=== PATIENT | female | born 1945 | race Caucasian/White ===

== ENCOUNTER 2017-06-19 08:02 | Inpatient (IN) | payer MEDICARE, OTHER ==
[~2017-06-19] VITALS: Ht 157.5 cm; Wt 63.6 kg
[~2017-06-19 08:02] MED LIST: ALBUTEROL2.5 MG/3 M INH; ALLEGRA ALLERG180 MG PO; ASPIRIN EC81 MG PO; BENZONATATE100 MG PO; BREO ELLIPTA 21 EACH INH; CIPROFLOXACIN500 MG PO; CLONIDINE HCL0.1 MG PO; CLOPIDOGREL75 MG PO; DIASTAT ACUDIAL1 EA PO; DIAZEPAM2 MG PO; DIAZEPAM5 MG PO; DILAUDID4 MG PO; DILAUDID8 MG PO; DIPHENOXYLATE-1 EACH PO; EFFEXOR XR37.5 MG PO; FLAGYL500 MG PO; FOLIC ACID1 MG PO; FUROSEMIDE20 MG PO; GILOTRIF30 MG PO; GILOTRIF40 MG PO; HYDROCODONE-AC473 ML PO; HYDROCODONE-ACE15 M2 PO; HYDROMORPHONE HC4 MG PO; IPRAT-ALBUT 0.5-3 ML INH; IRON18 MG PO; LAMISIL250 MG PO; LASIX20 MG PO; LEVOTHYROXINE100 MCG PO; LEVOTHYROXINE75 MCG PO; LISINOPRIL10 MG PO; LORAZEPAM1 MG PO; MAGNESIUM400 MG PO; METHOTREXATE2.5 MG PO; MORPHINE SULFAT10 M1 PO; MORPHINE SULFAT15 M1 PO; MORPHINE SULFAT30 M1 PO; MS CONTIN30 MG PO; MUCINEX600 MG PO; NORCO 5-325 TA1 EACH PO; NORCO 7.5-3251 EACH PO; OMEPRAZOLE20 MG PO; OMEPRAZOLE40 MG PO; OXYCODONE HCL10 MG; PERCOCET 5-3251 EACH PO; PREDNISONE20 MG PO; PREDNISONE5 MG PO; PROTONIX40 MG PO; RANITIDINE HCL150 MG PO; SIMVASTATIN40 MG PO; SPIRIVA18 MCG INH; SUCRALFATE1 GM PO; SYMBICORT 16010.2 GM INH; TIZANIDINE HCL4 MG PO; TREXALL5 MG PO; TUDORZA PRESS400 MCG INH; VENLAFAXINE H37.5 MG; VENLAFAXINE H37.5 MG PO; VITAMIN D31000 UNIT PO; VITRON-C TABLE1 EACH PO
--- OUTSIDE RECORDS SUMMARY | 2017-06-19 08:12 | XMS | Clinical Summary ---
Demographics + + + | Address | [address] | | | [place] [address] | + + + | Home Phone | | + + + | Preferred Language | Unknown | + + + | Marital Status | Single | + + + | Restorationism Affiliation | Unknown | + + + | Race | White | + + + | Ethnic Group | Not or | + + + Author + + + | Author | [facility] | + + + | Organization | [facility] | + + + | Address | Unknown | + + + | Phone | Unavailable | + + + Support +------+ +---------+ + | Name | Relationship | Address | Phone | +------+ +---------+ + ECON | Unknown | | +------+ +---------+ + Care Team Providers + +------+-------+ | Care Acute Care Assistant Name | Role | Phone | + +------+-------+ | Ayana Taylor MD | PP | tel | + +------+-------+ Source Comments KARISHMA is fully live on both [facility] and [facility] Allergies Not on File Current Medications Not on file Active Problems Not on file Social History + +-------+ +--------+------+ | Tobacco Use | Types | Packs/Day | Years | Date | | | | | Used | | + +-------+ +--------+------+ | Never Assessed | | | | | + +-------+ +--------+------+ + + + | Sex Assigned at | Date Recorded | | | | + + + | Not on file | | + + + Plan of Treatment + + + + + | Health Maintenance | Due Date | Last Done | Comments | + + + + + | INFLUENZA VACCINE | | | | | (FLU SHOT) | 7 | | | + + + + + Results Not on filefrom Last 3 Months"
--- OUTSIDE RECORDS SUMMARY | 2017-06-19 08:13 | XMS | Clinical Summary ---
Demographics + + + | Address | [address] | | | [place] [address] | + + + | Home Phone | | + + + | Preferred Language | Unknown | + + + | Marital Status | Single | + + + | Sikhism Affiliation | Unknown | + + + [...] Care Team Providers + +------+-------+ | Care Layout Former Name | Role | Phone | + +------+-------+ | Ayana Taylor MD | PP | tel | + +------+-------+ Source Comments KARISHMA is fully live on both [facility] and [facility]Patient.[facility] Allergies Not on File Current Medications Not [...]
[2017-06-19] MEDS ORDERED: POTASSIUM CHLO20 ME1 PO (08:30)
--- OUTSIDE RECORDS SUMMARY | 2017-06-19 10:56 | XMS | Clinical Summary ---
Demographics + + + | Address | [address] | | | [place] [address] | + + + | Home Phone | | + + + | Preferred Language | Unknown | + + + | Marital Status | Single | + + + | Buddhist Affiliation | Unknown | + + + [...] Care Team Providers + +------+-------+ | Care Real Estate Appraiser Supervisor Name | Role | Phone | + +------+-------+ | Ayana Taylor MD | PP | tel | + +------+-------+ Source Comments KARISHMA is fully live on both [facility] and [facility] Allergies Not on File Current Medications [...]
[2017-06-19] MEDS ORDERED: LEVOTHYROXINE125 MCG PO (12:24)
[2017-06-19] MEDS ORDERED: METHOTREXATE2.5 MG PO (12:29)
[2017-06-19] MEDS ORDERED: VENLAFAXINE HCL75 M2 PO (12:31)
[2017-06-19] MEDS ORDERED: SPIRIVA RESPIMAT4 GM INH (12:36)
[2017-06-19] MEDS ORDERED: TRAZODONE HCL100 MG PO (12:37)
[2017-06-19] MEDS ORDERED: PREMARIN30 GM VAGINAL (12:39)
[2017-06-19] MEDS ORDERED: RANITIDINE HCL300 MG PO (12:48)
--- NOTE | 2017-06-19 13:20 | NUR ---
PATIENT TO FLOOR FROM ED VIA STRETCHER. PATIENT TRANSFER SELF TO HOSPITAL BED WITH 1 PERS ASSIST. SKIN FRAGILE, BRUISES AND BROWN SPOTS DISCOLORATION NOTED ON THE UPPER AND LOWER EXTREMITIES. POSITIVE BOWEL TONES. RHONCHI AUSCULTATED THROUGHOUT THE LUNGS FIELD. PATIENT IS VERY TACHYPNEIC WITH ACTIVITY. ON 2L O2 VIA NC. IV SITE PATENT AND FLUID STARTED ORDERED. PATIENT DENIED NAUSEA. PATIENT REPORT GENRALIZED PAIN. PATIENT MEDICATED. CALL LIGHT IN REACH.
--- NOTE | 2017-06-19 13:38 | NUR ---
MED REC COMPLETE
--- NOTE | 2017-06-19 14:09 | NUR ---
RT WAS IN ROOM TO ADMINISTER NEB TREATMENT. PATIENT WAS ASSISTED TO BEDSIDE COMMODE WITH 1 PERSON ASSIST. PATIENT WAS VERY SHORT OF BREATH , BUT SATURATED @ 94% ON 2L. PATIENT HAD WET PRODUCTIVE COUGH WITH YELLOW SPUTUM. PATIENT ASSISTED BACK TO BED WITH NO DIFFICULTY. RR DOWN TO 24. RESTING IN BED AT THIS TIME. WILL CONTINUE TO MONITOR.
--- NOTE | 2017-06-19 15:56 | NUR ---
PATIENT RESTING IN BED APPEARS TO BE SLEEPING AT THIS TIME.
--- NOTE | 2017-06-19 17:10 | NUR ---
PATIENT WAS MEDICATED FOR 9/10 BACK/HEAD PAIN. PATIENT THEN ASSISTED TO CHAIR. WARM BLANKET PROVIDED. RESTING IN CHAIR AT THIS TIME.
--- NOTE | 2017-06-19 18:38 | NUR ---
PATIENT ADMIT FROM ED. PATIENT HAS HX OF LUNG CANCER. NEGATIVE FOR FLU. PATIENT IS ON 2L OF O2 VIA NC. RHONCHI AUSCULTATED THROUHGOUT THE LUNGS FIELD. LOOSE PRODUCTIVE COUGH. PATIENT HAD A TEMP OF 101.4 AND PATIENT WAS MEDICATED. BEDSIDE COMMODE. SOB WITH EXERTION. JORGE TX.
--- NOTE | 2017-06-19 19:15 | NUR ---
SHIFT REPORT RECIEVED. PATIENT RESTING IN BED. AAOX3. FRIEND/FAMILY AT BEDSIDE. PATIENT REPORTS PAIN. RN AGREED TO CHECK THE ORDERS AND PROVIDE PAIN MEDS SOON POSSIBLE. PATIENT AGREED. CALL LIGHT IN REACH.
--- NOTE | 2017-06-19 20:00 | NUR ---
WARD NURSE AGREED TO MEDICATE PATIENT.
--- NOTE | 2017-06-19 20:04 | NUR ---
WHITEBOARD UPDATED, PATIENT DOES NOT NEED ANYTHING AT THIS TIME.
--- NOTE | 2017-06-19 20:19 | NUR ---
MEDICATED WITH 8MG PO dILAUDID C/O 02/08 BACK/HEAD PAIN, PT ALERT, o2 3.5l NC, TOLERATING FLUIDS WELL. CONTINUES TON DROPLET ISOLATION
--- NOTE | 2017-06-19 22:00 | NUR ---
SHAHNAZ RN ETIENNE ABLE TO PROVIDE MEDS PER ORDER. RT BUSY AT THIS TIME, SCHEDULED NEB TREATMENT PROVIDED BY THIS RN. PATIENT IS AAOX3. LOOSE HACKING COUGH, RHONIC THROUGHOUT LUNGS. 3.5L NC, PULSE OX 97%. PATIENT REPORTS NAUSEA. ABD IS SOFT AND NONTENDER. LAST BM TODAY BEFORE COMING INTO ER. POOR APPETITE TONIGHT. PATIENT'S SKIN IS FLUSHED WITH DARK RUTLEDGE ON ALL EXTREMITIES, PATIENT REPORTS THIS NORMAL FOR HER. PATIENT FEELS WARM TO TOUCH. ORAL TEMP IS 99.5 F.
--- NOTE | 2017-06-19 23:00 | NUR ---
JOHAN CARBAJAL PROVIDED TO PATIENT. SHE HAS FAMILY IN THE ROOM VISITING. DENIES NEEDS AT THIS TIME. CALL LIGHT IN REACH.
--- NOTE | 2017-06-19 23:14 | NUR ---
HOSPITALIST CONTACTED TO REPORT PATIENT'S TEMP OF 99.5 F. NO NEW ORDERS. PATIENT REPORTS NAUSEA. NEW ORDERS RECIEVED FOR PRN ZOFRAN, VERIFIED USING READ BACK METHOD.
--- NOTE | 2017-06-20 00:20 | NUR ---
PATIENT RESTING IN BED. EYES CLOSED. AROUSED TO VOICE. DENIED TOILETING NEEDS AT THIS TIME. CALL LIGHT IN REACH.
--- NOTE | 2017-06-20 02:10 | NUR ---
PATIENT RESTING IN BED. EYES CLOSED. RR 20. PATIENT AROUSED TO VOICE. DENIED PAIN AT THIS TIME. ENCOURAGED THE PATIENT TO GET UP TO BSC. PATIENT ABLE TO TRANSFER WITH 1PA TO BSC. PATIENT COUGHING UP THICK CHIN PHLEM. PATIENT REQUESTED A NEB TREATMENT. RT CONTACTED. PATIENT REPORTS FEELING COLD, WARM BLANKET PROVIDED. PATIENT IN BED. PERSONAL ITEMS IN REACH. CALL LIGHT IN HAND.
--- NOTE | 2017-06-20 02:10 | NUR ---
RN IN ROOM
--- NOTE | 2017-06-20 03:00 | NUR ---
NEW IV STARTED BY YG. DAYANA TOLERATED WELL. MD CONTACTED ABOUT LOW URINE OUTPUT, ORDERS FOR FLUID BOLUS RECIEVED. VERIFIED USING READ BACK METHOD. BOLUS STARTED IN NEW IV SITE. PATIENT VERIBILIZED UNDERSTANDING OF THIS TREATMENT AND AGREED TO CALL WHEN SHE FEELS THE NEED TO URINATE. PATIENT REPORTS 9/10 PAIN IN BACK AND NECK. PRN PAIN MEDS PROVIDED. PATIENT TEMP OF 99.8 F ORALLY. PRN TYLENOL PROVIDED. PATIENT HAS THE CHILLS AND IS COLD TO THE TOUCH. WILL CONTINUE TO MONITOR.
--- NOTE | 2017-06-20 03:40 | NUR ---
RN IN ROOM
--- NOTE | 2017-06-20 05:00 | NUR ---
OLGA CORREA REPORTED TEMP OF 99.4 ORALLY. PATIENT RESTING IN BED. EYES CLOSED. RR17. PATIENT DENIES NEED TO USE THE BATHROOM. IV BOLUS INFUSING, SITE WNL.
--- NOTE | 2017-06-20 06:04 | NUR ---
PATIENT RESTED WELL THROUGHOUT THE NIGHT. PRN PAIN MEDS X3. NAUSEA X1, NO EMESIS. NEW IV SITE IN RAC. URINE OUTPUT LOW, IV BLOUS ORDERED. PATIENT OIRENTED X4. FREQUENTLY DROSWEY. SBA TO THE BSC. 3L NC, SCHEDULED NEBS. PRODUCTIVE COUGH W/THICK CHIN SPUTUM. PATIENT CALLS APPORPRIATLY.
--- NOTE | 2017-06-20 06:48 | NUR ---
PATIENT REPORTS PAIN IS WELL CONTROLLED RIGHT NOW. RATED 7/10. PATIENT STATES TO CONSISTENTLY BE AT A 5/10 WITH HER CHRONIC PAIN IN NECK AND BACK. PATIENT TIRATED TO 3L NC. O2 SAT 97%. MORNING MEDS GIVEN PER ORDER. PATINET RESTING IN BED. STATES SHE WAS RESENTLY UP TO THE BATHROOM AND DENIES THE NEED AT THIS TIME. IV SITE WNL, BOLUS HAS FINISHED. ORDERED IV FLUIDS RESUMED. PATIENT DENIES FURTHER NEEDS. CALL LIGHT IN REACH.
--- NOTE | 2017-06-20 07:15 | NUR ---
REPORT RECEIVED FROM ZEV ROMANO. PT AWAKE AND RECIEVING NEB TREATMENT. PT DENIES CONCERNS.
--- NOTE | 2017-06-20 09:35 | NUR ---
PT SITTING UP IN CHAIR HAVING JUST FINISHED BREAKFAST. ATE APPROX. 40%. STATES SHE DOES NOT HAVE AN APPETITE. PT TOOK MEDS. WO DIFF. ASSISTED BACK TO BED AND REMOVED FIELD START PER PROTOCOL, AND IT WAS LEAKING. IV INFUSING.
--- NOTE | 2017-06-20 10:00 | NUR ---
ADMINISTERED ZITHROMAX AFTER PHARM. BROUGHT IT UP. PT RESTING COMFORTABLY
--- NOTE | 2017-06-20 12:50 | NUR ---
HUNG NEW BAG OF IV FLUID. PT SLEEPING IN BED. APPEARS COMFORTABLE.
--- NOTE | 2017-06-20 15:10 | EKG ---
[facility] [address] [place], [place] [address] Signed Normal sinus rhythm Incomplete left bundle branch block Nonspecific ST abnormality Abnormal ECG No previous ECGs available Confirmed by ROHITH JACKSON MD ([id number]) on 06/20/2017 3:10:11 PM Electronically Signed By: ROHITH JACKSON MD 06/20/17 1510 PATIENT NAME: TENA VILLALOBOS Electrocardiogram DATE OF : 43 PHYSICIAN: ROHITH JACKSON MD REPORT #: [id number] REPORT IS CONFIDENTIAL AND NOT TO BE RELEASED WITHOUT AUTHORIZATION
--- NOTE | 2017-06-20 15:18 | NUR ---
DR JACKSON IN TO SEE PT. PT COUGHED UP LARGE YELLOW MUCOUS INTO BAG. STATES IT HAS BEEN GOING ON ABOUT A MONTH. LUNG SOUNDS AUDIBLE WO STETH. PT SOB WITH SITTING UPRIGHT IN BED.
--- NOTE | 2017-06-20 16:12 | NUR ---
PT'S DINNER HAS BEEN ORDERED. PT IS SLEEPING AT THIS TIME. CALL LIGHT IS IN REACH.
--- NOTE | 2017-06-20 17:09 | NUR ---
RT IN WITH PT ADMINISTERING NEB TREATMENT. PT DENIES NEEDS ATT.
--- NOTE | 2017-06-20 18:10 | NUR ---
PT SLEPT MOST OF SHIFT. TITRATED TO 2L NC. SATS MID 90'S. FIELD START DC'D. RHONCI AND COARSE THROUGHOUT. IVF DC'D. ATE WELL. DILAULDID GIVEN ONCE.
--- NOTE | 2017-06-20 21:39 | NUR ---
Continues on droplet isolation. O2 2L/nc, no c/o distress.Coop with assessment
--- NOTE | 2017-06-21 03:43 | NUR ---
resting, no distress, O2 2L NC, turned q2h, attens in place
--- NOTE | 2017-06-21 05:25 | NUR ---
Incontinent of uri9ne, attens changed, red bhanu and buttocks areea, lotion applied, pt cooperative with turning and am assessment. Medicated with dilaudid 8mg po c/o 02/08 Back and neck pain
--- NOTE | 2017-06-21 05:30 | NUR ---
Pt has slept this shift. O2 2L/nc, sob with exertion present, lung sounds still coarse, productive cough of green colored sputum. IS and Acapella at bedside. Continues on Droplet isolation . Pt tolerates liquids well, no c/o n/v or emesis. SL patent.Incontinent of urine, attends changed, red bhanu and buttocks area. lotion applied, pt helps with turning q2h. cooperative. Medicated x1 with Dilaudid 8mg po c/o back and neck pain. Cooperative with assessment.
--- NOTE | 2017-06-21 08:30 | NUR ---
PT COMPLAINED OF PAIN 9/10 IN NECK AND BACK. GAVE 8MG DILAUDID PO.
--- NOTE | 2017-06-21 08:40 | NUR ---
PT SITTING UP IN BED FOR BREAKFAST. ASKED PT IF SHE WOULD LIKE TO SIT IN THE CHAIR FOR LUNCH. PT HAS AGREED TO DO SO. STATES NO OTHER NEEDS AT THIS TIME. CALL LIGHT IS IN REACH.
--- NOTE | 2017-06-21 09:38 | NUR ---
PT RESTING IN BED. STATED PAIN 07/11. DENIES NEEDS AT THIS TIME.
--- NOTE | 2017-06-21 11:05 | NUR ---
Pt spilt coffee in bed. up to chair. standby assist. pt had shortness of breath with excertion. sats 95% on 2l nc.
--- NOTE | 2017-06-21 13:04 | NUR ---
in room with ptJanet
--- NOTE | 2017-06-21 14:35 | NUR ---
PT RESTING IN BED WATCHING TV. CALL LIGHT WITHIN REACH.
--- NOTE | 2017-06-21 15:37 | NUR ---
PT WAS GIVEN A BED BATH. VITALS AND I&O'S TAKEN AND DOCUMENTED. PT IS NOW BACK IN BED WATCHING TV. PT EXPRESSES NO OTHER NEEDS AT THIS TIME. CALL LIGHT IN REACH.
--- NOTE | 2017-06-21 17:10 | NUR ---
PT COMPLAINED OF PAIN IN NECK AND BACK. GAVE 8MG DILAUDID PO.
--- NOTE | 2017-06-21 17:30 | NUR ---
PT HAS NOT YET VOIDED, BUT SAYS SHE WILL TRY AFTER DINNER. PT IS SITTING UP IN BED EATING DINNER. VITALS HAVE BEEN TAKEN AND DOCUMENTED. WILL NOTIFY RN OF PT OUTPUT. CALL LIGHT IS IN REACH.
--- NOTE | 2017-06-21 18:33 | NUR ---
pt sob with excertion. up in chair and ambulating to bathroom. remains on 2l nc. scheduled neb treatments. titrated steroid dose today. appetite improving. dilaudid given for chronic pain throughout shift. remains on antibiotics. possible dc in 24-48 hrs.
--- NOTE | 2017-06-21 20:08 | NUR ---
pt continues on Droplet Isolation, O2 2L/NC, no c/o sob at this time. RT here doing nebs, IS and acapella tx. Pt lungs still coarse, moist productive thick green sputum. Pt coop with assessment. Helped with turning, , attends dry. fresh water n juice given. No other requests
--- NOTE | 2017-06-21 22:26 | NUR ---
TOOK TO THE BATHROOM AND BACK TOO BED. CALL LIGHT WITHIN REACH. DID NOT NEED ANYTHING AT THE MOMENT.
--- NOTE | 2017-06-21 22:53 | NUR ---
PATIENT DID ORAL CARE.
--- NOTE | 2017-06-22 00:01 | NUR ---
resting, O2 in place, no resp distress, helps with turning, no requests
--- NOTE | 2017-06-22 04:52 | NUR ---
Medicated with Dilaudid 8mg po c/o 02/08 neck and back pain. Turned, Tolerated liquids well. helps with turning and assessments
--- NOTE | 2017-06-22 05:54 | NUR ---
pt called, said she was throwing up. vomited approx 50cc purple colored liquid. says she was drinking some grape juice. noted coughing as well. said she wasn't coughing and then vomited, but coughed after she vomited. med with emma. at this time she is no longer vomiting. says she is feeling better.
--- NOTE | 2017-06-22 06:27 | NUR ---
pt declines levothyroid at this time due to feeling nauseated. pt receievd zoan earlier
--- NOTE | 2017-06-22 08:06 | NUR ---
pt sitting up awake in bed. 2l [address] 96% saturations. watching tv. pt says she has a "weak stomach" this morning. cottage cheese and peaches ordered for breakfast. will wait until patient eats to administer morning meds. no other complaints. pt reports she has been "smoking since 1st grade". crackles in lung bases. expiratory wheezes in upper lobes.
--- NOTE | 2017-06-22 09:00 | NUR ---
RN AND STUDENT NURSE IN ROOM WITH PATIENT.
[2017-06-22] MEDS ORDERED: OSELTAMIVIR PHO30 MG PO (10:54)
[2017-06-22] MEDS ORDERED: NICORETTE4 M2 BUCCAL (10:54)
[2017-06-22] MEDS ORDERED: PREDNISONE5 MG PO (10:57)
[2017-06-22] MEDS ORDERED: PREDNISONE20 MG PO (10:59)
--- NOTE | 2017-06-22 12:13 | NUR ---
pt did not qualify for home o2. sitting in recliner now on room air. saturating 93%. went over discharge paperwork with patient. all questions answered. Pharmacist to speak with patient about home medications.
[2017-06-23] MEDS ORDERED: GILOTRIF30 MG PO (13:53)
[2017-06-23] MEDS ORDERED: PANTOPRAZOLE SO40 MG PO (14:21)
== END 2017-06-22 13:00 | disposition home or self-care (01) | DRG 189 ==
LOC: ED 08:02 → CCU 10:53 → MS 10:53
PROVIDERS: ADMIT Internal Medicine
DX: J96.01 Acute respiratory failure with hypoxia (principal); J44.1 Chronic obstructive pulmonary disease with (acute) exacerbation; J44.0 Chronic obstructive pulmonary disease with (acute) lower respiratory infection; C34.90 Malignant neoplasm of unspecified part of unspecified bronchus or lung; J11.1 Influenza due to unidentified influenza virus with other respiratory manifestations; G89.4 Chronic pain syndrome; K21.9 Gastro-esophageal reflux disease without esophagitis; D63.8 Anemia in other chronic diseases classified elsewhere; M06.9 Rheumatoid arthritis, unspecified; F17.210 Nicotine dependence, cigarettes, uncomplicated; J22 Unspecified acute lower respiratory infection; Z98.1 Arthrodesis status
CPT/HCPCS: 36415; 71045; 80048; 80053; 81001; 83605; 83690; 83735; 84484; 85025; 87040; 87502; 93005; 93010; 94640; 94667; 94668; 94762; J0456; J0696; J1170; J1650; J2405; J2930; J3475; J7040; J7050; J7120; J7512

== ENCOUNTER 2017-06-23 08:42 | Inpatient (IN) | payer MEDICARE, OTHER ==
[~2017-06-23] VITALS: Ht 157.5 cm; Wt 68.3 kg
--- OUTSIDE RECORDS SUMMARY | ~2017-06-23 | XMS | Clinical Summary ---
Demographics + + + | Address | [address] | | | [place] [address] | + + + | Home Phone | | + + + | Preferred Language | Unknown | + + + | Marital Status | Single | + + + | Mormonism Affiliation [...] Care Team Providers + +------+-------+ | Care Commercial Energy Auditor Name | Role | Phone | + +------+-------+ | Ayana Taylor MD | PP | tel | + +------+-------+ Source Comments KARISHMA is fully live on both [facility] and [facility] InPatient.[facility] Allergies Not on File Current Medications [...]
--- OUTSIDE RECORDS SUMMARY | ~2017-06-23 | XMS | Clinical Summary ---
Demographics + + + | Address | [address] | | | [place] [address] | + + + | Home Phone | | + + + | Preferred Language | Unknown | + + + | Marital Status | Single | + + + | Protestant Affiliation [...] Care Team Providers + +------+-------+ | Care Web Editor Name | Role | Phone | + +------+-------+ | Ayana Taylor MD | PP | tel | + +------+-------+ Source Comments KARISHMA is fully live on both [facility] and [facility] InPatient.[facility] Allergies Not on File Current [...]
--- OUTSIDE RECORDS SUMMARY | ~2017-06-23 | XMS | Clinical Summary ---
Demographics + + + | Address | [address] | | | [place] [address] | + + + | Home Phone [...] Care Team Providers + +------+-------+ | Care Paving Foreman Name | Role | Phone | + +------+-------+ | Ayana Taylor MD | PP | tel | + +------+-------+ Source Comments KARISHMA is fully live on both [facility] and [facility] InPatient.[facility] Allergies Not on File Current Medications [...]
--- OUTSIDE RECORDS SUMMARY | ~2017-06-23 | XMS | Clinical Summary ---
Demographics + + + | Address | [address] | | | [place] [address] | + + + | Home Phone | | + + + | Preferred Language | Unknown | + + + | Marital Status | Single | + + + | Faith Affiliation [...] Care Team Providers + +------+-------+ | Care Delivery Stock Clerk Name | Role | Phone | + +------+-------+ | Ayana Taylor MD | PP | tel | + +------+-------+ Source Comments KARISHMA is fully live on both [facility] Ambulatory and [facility] InPatient.[facility] Allergies Not on File Current Medications [...]
[~2017-06-23 08:42] MED LIST changes: +LEVOTHYROXINE125 MCG PO; +NICORETTE4 M2 BUCCAL; +OSELTAMIVIR PHO30 MG PO; +POTASSIUM CHLO20 ME1 PO; +PREMARIN30 GM VAGINAL; +RANITIDINE HCL300 MG PO; +SPIRIVA RESPIMAT4 GM INH; +TRAZODONE HCL100 MG PO; +VENLAFAXINE HCL75 M2 PO
[2017-06-23] MEDS ORDERED: GILOTRIF30 MG PO (13:53)
[2017-06-23] MEDS ORDERED: PANTOPRAZOLE SO40 MG PO (14:21)
--- NOTE | 2017-06-23 15:24 | NUR ---
pt c/o nausea. zofran given earlier. scheduled meds given now. pt resting between cares. vanco infusing into right forearm.
--- NOTE | 2017-06-23 15:24 | NUR ---
MED REC COMPLETE
--- NOTE | 2017-06-23 17:58 | NUR ---
READMITTED FROM ED. TRANSPORTED TO HOSPITAL VIA EMS. CHEST CT SHOWS PNEUMONIA VS METASTATIC PROCESS. SBA. AMBULATED HUFF[place] THIS EVENING AND BECAME SOB. NEED WHEELCHAIR FOLLOW IF AMBULATING. VANCO GIVEN X1. RFA IV FIELD START. PORT WILFRIDO (NOT ACCESSED FOR YEARS, WILL LEAVE UNACCESSED). REGULAR DIET, POOR APPETITE. CONTINUOUS PULSE OX. SATURATES WELL ON ROOM AIR. BRUISES ON UPPER AND LOWER EXTREMITIES WITH DARK DISCOLORATION ON EXTREMITIES ALSO. EDEMA LE. TENDER TO TOUCH LLE. DILAUDID GIVEN X1 FOR BACK PAIN.
--- NOTE | 2017-06-23 21:41 | NUR ---
PT IN BED. STATES PAIN IS 9/10 MEDICATION GIVEN. CALL LIGTH WITHIN REACH. EXPIRATORY WHEEZING THROUGHOUT. AB IS INFUSING. PERSONAL ITEMS AT BEDSIDE. NO OTHER NEEDS AT THIS TIME.
--- NOTE | 2017-06-24 00:33 | NUR ---
PT APEARS TO BE SLEEPING. RESPIRATIONS WNL. NO NEEDS AT THJIS TIME. CALL LIGHT WITHIN REACH.
--- NOTE | 2017-06-24 01:36 | NUR ---
VACO HUNG. PT SLEEPING AT THIS TIME RR WNL AND UNLABORED. SATURATIONS AT 93%. CON PULSE OX. CALL LIGHT WITHIN REACH. NO NEEDS AT THIS TIME.
--- NOTE | 2017-06-24 02:38 | NUR ---
PT REPORTS 9/10 PAIN. DILAUDID GIVEN. WILL CONTINUE TO MONITOR. CALL LGIHT WITHIN REACH AND PERSONAL ITEMS AT BEDSIDE. SATS @ 97% ON RA. MILY COMPLETED. NO OTHER NEEDS AT THIS TIME.
--- NOTE | 2017-06-24 02:54 | NUR ---
ASSISTED PATIENT TO USE THE BEDSIDE COMMODE AND BACK TO BED. CALL LIGHT WITHIN REACH.
--- NOTE | 2017-06-24 04:00 | NUR ---
APPEARS TO BE SLEEPING. RR WNL EQUAL AND NONLABORED. CALL LIGHT WITHIN REACH.
--- NOTE | 2017-06-24 07:00 | NUR ---
RECIEVED REPORT FROM EXPERIMENTAL PREFLIGHT MECHANIC NURSE. PATIENT RESTING IN BED. WATER PITCHER FILLED. DENIES NEEDS. CALL LIGHT IN REACH.
--- NOTE | 2017-06-24 07:27 | NUR ---
PATIENT RESTING IN BED. REQUESTS FOR PAIN MEDICATION FOR LOWER BACK PAIN. DILAUDID ADMINISTERED PER JUL. PATIENT IS ALERT AND ORIENTED. INSPIRATORY/EXPIRATORY WHEEZING HEARD IN MULTIPLE LUNG SANTOS. MOIST COUGH NOTED WITH DEEP BREATHING AND USE OF INCENTIVE SPIROMETER. PATIENT ABLE TO REACH 1250 ML ON INCENTIVE SPIROMETER. HR REGULAR. BS ACTIVE. PATIENT STATES LAST BM ON 06/19/17. TRACE EDEMA NOTED ON RLE, +1-+2 PITTING EDEMA ON LLE WHICH PATIENT STATES IS NORMAL. PEDAL PULSES PALPATED. PATIENT DENIES FURTHER NEEDS. IV FLUSHED IN R WRIST. CALL LIGHT IN REACH.
--- NOTE | 2017-06-24 09:33 | NUR ---
PATIENT C/O "HEARTBURN." MAALOX ADMINISTERED. PATIENT COUGHING UP YELLOW/BROWN TINGED SPUTUM. PATIENT UP TO BATHROOM WITH ASSIST. MEAL TRAY REMOVED. POOR APPETITE. ORDERED PROTEIN SHAKE. PATIENT DENIES FURTHER NEEDS. CALL LIGHT IN REACH.
--- NOTE | 2017-06-24 10:04 | NUR ---
AM meds given. Patient able to take meds without dificulty. Pt complains of nausea, abdominal pain, and fullness of abdomen at this time.
--- NOTE | 2017-06-24 10:26 | NUR ---
attempted to administer zofran 4 mg IVP. IV infiltrated, meds not administered. IV DC'd per Lin. Tip intact and site benign.
--- NOTE | 2017-06-24 10:56 | NUR ---
IN ROOM TO SEE PATIENT STUDENT NURSE IN TO CHANGE PATIENTS LINENS.
--- NOTE | 2017-06-24 11:35 | NUR ---
FIELD REPRESENTATIVE/HEALTH EDUCATION OBTAINED ACCESS TO L CHEST PORT. HURRICAINE SPRAY USED-MD NOTIFIED. PATIENT RESTING IN BED. DENIES NEEDS. CALL LIGHT IN REACH.
--- NOTE | 2017-06-24 13:00 | NUR ---
PATIENT SLEEPING. CALL LIGHT IN REACH. ABX INFUSING W/O DIFFICULTY.
--- NOTE | 2017-06-24 13:20 | NUR ---
Assited pt to bathroom and back into bed. Continuous pulse ox. Call light in reach. No other needs at this time.
--- NOTE | 2017-06-24 13:45 | NUR ---
PATIENT UP TO BATHROOM WITH STANDBY ASSIST AND BACK TO BED. BED BATH COMPLETE. ORAL CARE DONE. FRESH ICE WATER GIVEN. THIS CELLULAR EQUIPMENT REPAIRER BROUGHT HER AN GLUCERNA ENSURE AND YOGURT DUE TO THE PATIENT REFUSING LUNCH. NO OTHER NEEDS AT THIS TIME. CALL BUTTON IN REACH.
--- NOTE | 2017-06-24 14:07 | NUR ---
PATIENT RESTING IN BED. EXP/INSPIRATORY WHEEZE HEARD IN RUL. EXP WHEEZE HEARD IN TREMAINE. DIMINISHED BLL. PATIENT STATES SHE DOES GET SOB WITH ACTIVITY-SUCH AMBULATING TO THE BATHROOM. PATIENT STILL COUGHING UP THICK YELLOW SPUTUM. DENIES HEMOPTYSIS THIS AFTERNOON. CONT. PULSE OX AT 97%. PATIENT DID NOT DESAT AFTER AMBULATING. HR REGULAR. PITTING EDEMA NOTED IN BLE, L>R. PEDAL PULSES PALPATED. PATIENT DENIES NEEDS. CALL LIGHT IN REACH.
--- NOTE | 2017-06-24 14:08 | NUR ---
RN IN TO SEE PATIENT AT THIS TIME.
--- NOTE | 2017-06-24 14:24 | NUR ---
WELCOMED ME INTO HER RM, AND SAID SHE NEEDED A RN QUICKLY. STAFF WAS ENTERING JUST I LEFT TO GET STAFF. WILL FOLLOW NEEDED
--- NOTE | 2017-06-24 14:27 | NUR ---
PATIENT UP TO BATHROOM WITH SUPERVISION. C/O BACK PAIN-PAIN MEDICATION ADMINISTERED. PATIENT STILL UNABLE TO HAVE BM. ADMINISTERING ENEMA PER JUL. PATIENT ALSO C/O NAUSEA. PHENERGAN ADMINISTERED. PATIENT DENIES FURTHER NEEDS. CALL LIGHT IN REACH.
--- NOTE | 2017-06-24 14:47 | NUR ---
PATIENT UP TO BSC WITH ASSIST. CALL LIGHT IN REACH.
--- NOTE | 2017-06-24 15:25 | NUR ---
PATIENT WAS ABLE TO HAVE A SMALL HARD STOOL. ASSISTED PATIENT FOR A WALK IN THE [place]. PATIENT ONLY ABLE TO TOLERATE SHORT DISTANCE, ABOUT 50 FEET. PATIENT STATES SHE FEELS NAUSEOUS AGAIN. COOL CLOTH PLACED ON FOREHEAD. WILL REASSESS IN 10 MINUTES.
--- NOTE | 2017-06-24 16:26 | NUR ---
PATIENT UP TO BSC. VOIDED. PASSED SOME LIQUID FROM ENEMA GIVEN EARLIER IN THE DAY. STILL NO SUBSTANTIAL STOOL PASSED. PATIENT SLEEPING AT THIS TIME. WORKED WITH PHYSICAL THERAPY-MARCHED AT BEDSIDE UNTIL SHE FELT NAUSEOUS AGAIN. SHE WAS SLEEPING WHEN I WALKED IN AFTER PHYSICAL THERAPY EVAL. WILL ASSESS NAUSEA WHEN PATIENT IS AWAKE. CALL LIGHT IN REACH. ABX INFUSING W/O DIFFICULTY. CALLED PHARMACY FOR HEPARIN FLUSH ORDER FOR CHEST PORT.
--- NOTE | 2017-06-24 16:45 | NUR ---
ONE PERSON STANDBY ASSIST, PATIENT TO BATHROOM AND BACK TO BED. PT HAD BOWEL MOVEMENT WITH COPIOUS AMOUNTS OF WATERY STOOL. PT IN PAIN, REQUESTED MEDICATION. CALL LIGHT IN REACH.
--- NOTE | 2017-06-24 17:17 | NUR ---
PATIENT SITTING UP IN BED. IN ROOM WITH HER. NO NEEDS AT THIS TIME. CALL BUTTON IN REACH. RN IN ROOM TO SEE PATIENT.
--- NOTE | 2017-06-24 17:36 | NUR ---
PATIENT C/O LOWER BACK PAIN. ADMINISTERED PAIN MEDICATION PER MAR. PATIENT DENIES NAUSEA AT THIS TIME. SPOUSE AT BEDSIDE. HEPARIN FLUSHED PORT. ABX HAD FINISHED INFUSING. ORDERED PATIENT DINNER. DENIES FURTHER NEEDS. CALL LIGHT IN REACH.
--- NOTE | 2017-06-24 18:21 | NUR ---
VS STABLE THROUGHOUT SHIFT, VOIDING WELL. POOR APPETITE. ENCOURAGING PRO SHAKES. WORKED WITH PHYSICAL THERAPY TODAY (MARCHED AT BEDSIDE). AMBULATED WITH RN. A FEW BOUTS OF NAUSEA AFTER ACTIVITY. PRN ANTIEMETICS IN USE. ENEMA ADMINISTERED TODAY WITH GOOD EFFECT.
--- NOTE | 2017-06-24 18:47 | NUR ---
PATIENT HAVING DINNER. DENIES NEEDS. CALL LIGHT IN REACH.
--- NOTE | 2017-06-24 19:10 | NUR ---
PT IS AWAKE IN BED, PT'S IS IN ROOM VISITING. PT HAS NO REQUESTS AT THIS TIME, CALL LIGHT WITHIN REACH.
--- NOTE | 2017-06-24 19:40 | NUR ---
PATIENT IN BED ASLEEP. WHITEBOARD UPDATED. ROOM TIDIED.
--- NOTE | 2017-06-24 21:00 | NUR ---
PT'S EVENING MEDICATIONS WERE GIVEN AND PORT ACCESSED TO START ABX, PT CONTINUES TO HAVE A POOR APPETITE. PT IS ON CONTINUOUS PULSEOX AND O2SAT IS MID 90'S IN RA. LUNGS HAVE INSP/EXP WHEEZES, PT JUST RECEIVED NEB TRT. PT HAS PITTING EDEMA IN BILAT LOWER EXTREMITIES. PT REPORT CHRONIC BACK PAIN 8/, 4 MG PO DILAUDID GIVEN. PT HAS NO OTHER REQUESTS AT THIS TIME.
--- NOTE | 2017-06-25 01:32 | NUR ---
rn in room
--- NOTE | 2017-06-25 01:36 | NUR ---
PT IS RESTING IN BED WITH EYES CLOSED, RESPIRATIONS EVEN AND NONLABORED ON CONT PULSEOX. CALL LIGHT IS WITHIN REACH.
--- NOTE | 2017-06-25 04:36 | NUR ---
PT SLEPT WELL THROUGH THE NIGHT WITHOUT ANY COMPLAINTS OF PAIN AFTER HAVING PO DILAUDID WITH EVENING MEDS. VS STABLE, AND PT HAS BEEN ON CONTINUOUS PULSEOX IN THE MID 90'S DURING SLEEP. LUNG SOUNDS CONTINUE TO HAVE INSP & EXP WHEEZES PT'S PORT HAS GOOD BLOOD RETURN, FLUSHES WELL AND IS HEP LOCKED AFTER ABX INFUSION.
--- NOTE | 2017-06-25 06:24 | NUR ---
BROUGHT PATIENT DILAUDID FOR PAIN AND THYROID MED. PT HAS NO REQUESTS AT THIS TIME.
--- NOTE | 2017-06-25 07:28 | NUR ---
RECIEVED REPORT FROM MANAGER CONTROL NURSE. PATIENT SLEEPING, EVIDENCE BY SNORING. CALL LIGHT IN REACH.
--- NOTE | 2017-06-25 10:33 | NUR ---
PATIENT RESTING IN BED. STATES SHE FEELS "VERY TIRED." PAIN 9/10 BEFORE DILAUDID ADMINISTRATION. PATIENT IS NOW CURRENTLY SLEEPING. EXP. WHEEZES HEARD IN UPPER LUNG SANTOS. CLEAR-->DIM IN LOWER SANTOS. AUSCULTATED LUNGS ANTERIORLY. HR REGULAR. BS ACTIVE. PATIENT STATES SHE HAD A BM THIS MORNING. +1-+2 BLE PITTING EDEMA, L>R. PEDAL PULSES PALPATED. BROWN DISCOLORATION IN ALL EXTREMETIES WITH SCATTERED BURISES AND SCABS. VS OBTAINED. PATIENT DENIES FURTHER NEEDS. CALL LIGHT IN REACH.
--- NOTE | 2017-06-25 11:19 | NUR ---
PATIENT UP TO BSC WITH ASSIST.
--- NOTE | 2017-06-25 11:46 | NUR ---
[facility] NURSING STUDENTS WILL BE PROVIDING TOTAL PT CARE TODAY, WILL COMMUNICATE OFTEN WITH STUDENTS TO MAKE SURE CARES ARE BEING DINE AND TO SEE IF THEY NEED ANY ASSISTANCE.
--- NOTE | 2017-06-25 12:34 | NUR ---
PATIENT UP TO BATHROOM WITH ASSIST. VOIDED. BACK TO CHAIR. PATIENT STATES THAT SHE FEELS "SICK TO MY STOMACH." PHENERGAN ADMINISTERED. RESPIRATORY THERAPY ADMINISTERING NEB TX. CM COHEN APPLIED. PATIENT ONLY ATE A YOGURT FOR LUNCH. ORDERED HER A PROTEIN SHAKE. DENIES FURTHER NEEDS. CALL LIGHT IN REACH.
--- NOTE | 2017-06-25 12:59 | NUR ---
PATIENT C/O PAIN 03/10 IN HER LOWER BACK. PAIN MEDICATION ADMINISTERED PER JUL. PATIENT STATES SHE STILL FEELS NAUSEOUS AND THE PHENERGAN DID NOT HELP AT ALL. WILL ADMINISTER ZOFRAN. PATIENT UP IN CHAIR. CALL LIGHT IN REACH.
--- NOTE | 2017-06-25 14:58 | NUR ---
OBTAINED ORDERS FROM FOR ANTIEMETICS. WAITING FOR PHARMACY TO VERIFY.
--- NOTE | 2017-06-25 15:20 | NUR ---
PATIENT RESTING UP IN CHAIR. SIG. OTHER AT BEDSIDE. PATIENT STILL C/O NAUSEA. PROTONIX ADMINISTERED AT THIS TIME. R SIDE LUNG INSPIRATORY AND EXPIRATORY WHEEZING HEARD. L SIDE LUNG DIMINISHED WITH EXPIRATORY WHEEZING. HR REGULAR. EDEMA HAS NOT CHANGED SINCE PREVIOUS ASSESSMENT. CM HOSE IN PLACE. BS HYPOACTIVE. PATIENT STATES SHE FEELS MODERATELY DISTENDED. ENCOURAGED PATIENT TO USE ACCAPELLA AND IS. PROTEIN SHAKE DELIVERED. PATIENT DENIES FURTHER NEEDS. CALL LIGHT IN REACH.
--- NOTE | 2017-06-25 15:57 | NUR ---
PATIENT SLEEPING UP IN CHAIR. CONT. PULSE OX IN PLACE-O2 AT 94%. CALL LIGHT IN REACH.
--- NOTE | 2017-06-25 16:49 | NUR ---
PATIENT RESTING IN CHAIR. STILL C/O NAUSEA AND PAIN. GAVE PATIENT SOME SALTINE CRACKERS TO TAKE WITH MEDICATION. ADMINISTERED COMPAZINE AND PAIN MEDICATION PER JUL. CALL LIGHT IN REACH.
--- NOTE | 2017-06-25 18:16 | NUR ---
ASSISTED PATIENT TO BATHROOM. VOIDED. BACK TO CHAIR. ELEVATED BLE ON TWO PILLOWS. CALL LIGHT IN REACH.
--- NOTE | 2017-06-25 18:46 | NUR ---
patient sleeping in bed, evidence by snoring. call light in reach.
--- NOTE | 2017-06-25 19:05 | NUR ---
REPORT RECIEVED. PATIENT RESTING. EYES CLOSED. RR 16. PULSE OX 95%. CALL LIGHT IN REACH.
--- NOTE | 2017-06-25 21:15 | NUR ---
EVENING MEDS GIVEN PER ORDER. PATIENT IS AAOX3. LUNG HAVE INSPIRTORY AND EXPIRTORY WHEEZES IN UPPER LOBES BILATERALLY. EXPIRTORY WHEEZES IN THE BASES BILATERALLY. OCCATIONAL COUGH THAT PRODUCES SMALL AMOUNT OF THICK RED SPUTUM. ABD IS MODERATELY DISTENDED, FIRM AND NONTENDER, BOWEL SOUNDS ACTIVE. PATIENT STATES HER ABD IS MORE DISTENDED THAN HER NORMAL. PATIENT DENIES NAUSEA AT THIS TIME. REQUESTED YOGURT AND AN ENSURE, WHICH WERE PROVIDED TO HER. CM HOSE ARE IN PLACE, 1+ EDEMA NOTED IN MATTHEW LOWER EXTREMITIES. ELEVATED THEM ON A PILLOW. PATIENT DENIES TOILING NEEDS. IV ABX ADMINISTERED. PATIENT HAS IMPLANTED PORT, DRAWS BACK BLOOD EASILY AND FLUSHED WITH 10MLS NS. SITE WNL. PATIENT IS ON RA WITH CONTINUOUS PULSE OX, 02 SAT 95%. DAYANA REPORTS 10/10 PAIN IN HER BACK AND NECK, PRN PAIN MEDS ADMINISTERED. PATIENT DENIES NEED FOR REPOSITIONING OR HEAT/ICE PACK. NO OTHER NEEDS AT THIS TIME. CALL LIGHT IN REACH.
--- NOTE | 2017-06-25 22:36 | NUR ---
ENCOURAGED PATIENT TO GET UP TO THE BATHROOM. PATIENT AMBULATED WITH SBA, APPEARS STEADY ON HER FEET. PATIENT HAD A SMALL BOWEL MOVEMENT. PATIENT ALSO ABLE TO PRODUCE A SPUTUM SAMPLE WHICH WAS COLLECTED AND SENT TO THE LAB. PATIENT BACK IN BED. DENIES OTHER NEEDS AT THIS TIME. CALL LIGHT IN REACH.
--- NOTE | 2017-06-25 23:30 | NUR ---
VITAL SIGNS PERFORMED AND DOCUMENTED, WNL. PATIENT DENIES NEEDS. CALL LIGHT IN REACH.
--- NOTE | 2017-06-26 01:30 | NUR ---
PATIENT RESTING COMFORTABLE. DECLINES NEED TO USE THE BATHROOM. DENIES NEED FOR PRN PAIN MEDS AT THIS TIME. CALL LIGHT IN REACH.
--- NOTE | 2017-06-26 03:22 | NUR ---
PATIENT APPEARED TO BE RESTING COMFORTABLY. PATIENT AROUSED TO VOICE. RN ENCOURAGED PATIENT TO USE THE BATHROOM AND PATIENT DECLINED. NO NEEDS AT THIS TIME. CALL LIGHT IN REACH.
--- NOTE | 2017-06-26 05:05 | NUR ---
PATIENT SLEPT WELL THROUGHOUT THE NIGHT. CONTINUES TO HAVE OCCATIONAL COUGH WITH RED/BROWN SPUTUM, SAMPLE COLLECTED. PATIENT'S PORT IS HEPARIN LOCKED. PRN PAIN MEDS GIVEN X2 FOR CHRONIC BANK & NECK PAIN. ENCOURAGED PATIENT TO DRINK ENSURE AND SNACK, CONTINUES TO HAVE POOR APPETITE. SBA TO THE BATHROOM. TOLERATING ROOM AIR. SMALL BM SEMI FORMED LAST NIGHT. CM HOSE. PULSE OX. DROPLET PRECAUTIONS IN PLACE.
--- NOTE | 2017-06-26 05:08 | NUR ---
up to bsc, voided yellow urine, no c/o burning with urination. pt on room air, cont pulse ox in place, sob w exertion noted. Continues on droplet isolation. Pt requires one person assist
--- NOTE | 2017-06-26 07:20 | NUR ---
BEDSIDE REPORT RECEIVED FROM ROSALINA. PATIENT AWAKE IN BED. REPORT MINIMAL PAIN THAT SHE SAID IS COMFORTABLL FOR HER. NO NEEDS FOR PAIN MEDS. BREAKFAST ORDERED.
--- NOTE | 2017-06-26 10:20 | NUR ---
PATIENT WAS ASSISTED FRO CHAIR TO BATHROOM FOR SHOWER BY STUDENT NURSE. PATIENT IS RESTING IN THE CHAIR AT THIS TIME. SHIFT ASSESSMENT DONE. LUNGS SOUNDS COARSE AND EXPERATORY WHEEZING. IMPROVED AFTER NEB TREATMENT. ABD SOFT AND POSITIVE BOWEL TONES. 1+ EDEMA IN THE LOWER EXTREMITIES MORE SO ON THE RIGHT ANKLE. SKIN DISCOLORATION NOTED IN THE UPPER AND LOWER EXTREMETIES. PATIENT IS SOB WITH EXERTION. STABLE ON HER FEET. CALL LIGHT IN REACH.
--- NOTE | 2017-06-26 12:36 | NUR ---
PATIENT RESTING IN THE CHAIR, REPORT MINIMAL PAIN NECK AND BACK. NO APPARENT DISTRESS.
--- NOTE | 2017-06-26 15:43 | NUR ---
PATIENT WAS ASSISTED TO BATHROOM. AMBULATED PATIENT IN THE HALLWAY WITH NO DIFFICULTY. REPORT MILD SOB WITH AMBULATION. BACK TO ROOM AND RESTING IN THE BED. PATIENT WAS MEDICATED FOR PAIN PER PATIENT REQUEST. CALL LIGHT IN REACH AND FAMILY IN ROOM.
--- NOTE | 2017-06-26 18:27 | NUR ---
PATIENT HAD DONE WELL THIS SHIFT. AMBULATED ONCE TODAY, TOLERATED WELL. PATIENT STILL SOB ON EXERTION. PATIENT ON RA AND SAT BETWEEN 94%-96. NEB TREATMENT SCHEDULED. LUNGS SOUNDS IMPROVED AFTER TABITHA TX. PORTACATH ON LEFT CHEST IS HEP LOCKED. HAD 2 BMS TODAY. PATIENT REPORTED THAT SHE IS FEELING MUCH BETTER TODAY. MAY DC TOMORROW PER DR JACKSON.
--- NOTE | 2017-06-26 19:15 | NUR ---
SHIFT REPORT RECIEVED. PATIENT IN BED WATCHING TV. RATED PAIN 7/10. PATIENT AGREES TO GO FOR ONE MORE WALK BEFORE BED. NO NEEDS AT THIS TIME. CALL LIGHT IN REACH.
--- NOTE | 2017-06-26 20:20 | NUR ---
ROUNDED CHARGE. PATIENT IS RESTING IN RECLINER. PATIENT IS WATCHING TV AT THIS TIME. PATIENT DENIES ANY NEEDS, COMMENT, QUESTIONS, OR CONCERNS. CALL LIGHT IN REACH.
--- NOTE | 2017-06-26 20:45 | NUR ---
EVENING MEDS GIVEN PER ORDER. PATIENT REPORTS PAIN 9/10, PRN PAIN MEDS PROVIDED FOR BACK & NECK PAIN. PATIENTS PORT RETURNED BLOOD EASILY, FLUSHED WITH NS AND IV ABX STARTED. PATIENTS LUNGS HAVE EXPIRTORY WHEEZES IN UPPER LOBES, RLL IS DIMINISHED AND LLL IS CLEAR. PATIENT TOLERATING ROOM AIR, OCCATIONAL COUGH. RT IN ROOM FOR NEB TREATMENTS & IS/CPT. ABD IS FIRM AND MODERATELY DISTENDED, NONTENDER. NO NAUSEA. BOWEL SOUNDS ACTIVE. CMS INTACT, CM HOSE ON MATTHEW LOWER EXTREMITIES. PATIENT MOVED UP TO THE RECLINER AT THIS TIME. PERSONAL ITEMS WITHIN REACH. WILL RETURN TO ASSIST PATINET WITH AMBULATION IN THE [facility] AND PM CARE. PATINET VERBILIZED UNDERSTANDING. CALL LIGHT IN REACH.
--- NOTE | 2017-06-26 21:50 | NUR ---
PATIENT AMBULATED FOR A SHORT LAP IN THE HALLWAY, [facility]. PATIENT TOLERATED WELL. SHE DID NOT APPEAR SOB AND BREATHING WAS REGULAR. PATIENT REPORTED FEELING TIRED AND WANTED TO GET READY FOR BED. PATIENT RETURNED TP HER ROOM. USED THE BATHROOM. PERFORMED HER OWN ORAL CARE. AND THEN RETURNED TO THE BED. PATIENT REPORTS BEING COMFORTABLE. LEGS ELEVATED. CALL LIGHT IN REACH.
--- NOTE | 2017-06-26 22:11 | NUR ---
VITALS DONE AND CHARTED. BEDSIDE TABLE AND CALL LIGHT WITHIN REACH.
--- NOTE | 2017-06-26 23:00 | NUR ---
PATIENT RESTING IN BED, EYES CLOSED. BREATHING NONLABORED. O2 SAT 96% ON ROOM AIR.
--- NOTE | 2017-06-27 02:20 | NUR ---
PATIENT REQUESTED PRN PAIN MEDS FOR 9/10 PAIN. PRN PAIN MEDS PROVIDED. PATIENT DENIES FURTHER NEEDS. IV ABX COMPLETE. PORT IS HEP-LOCKED.
--- NOTE | 2017-06-27 05:15 | NUR ---
PATIENT UP TO THE BATHROOM. SBA. PATIENT TOLERATED WELL. PRN PAIN MEDS REQUESTED AND GIVEN. VITAL SIGNS COMPLETED. PATIENT DENIES NEEDS AT THIS TIME. AGREES TO GO FOR ANOTHER SHORT WALK BEFORE BREAKFAST.
--- NOTE | 2017-06-27 05:34 | NUR ---
PATIENT RESTED WELL THROUGHOUT THE NIGHT. PRN PAIN MEDS X3 FOR CHRONIC BACK AND NECK PAIN. OUTPUT QS. NO NAUSEA. PATIENT WALKED ONE SMALL LAP BEFORE BED LAST NIGHT, TOLERATED WELL BUT WAS TIRED. PORT ASSESS IS HEP LOCKED. LUNG SOUNDS HAVE IMPROVED FROM PREVIOUS SHIFT. DIMINISHED IN THE BASES WITH SLIGHT EXPIRTORY WHEEZES IN THE UPPER LOBES. PATIENT TOLERATING ROOM AIR, O2 SAT >95%. CM HOSE ON BILATERALY.
--- NOTE | 2017-06-27 06:32 | NUR ---
morning meds given per order. patient up to the bathrooom. does not want to go for a walk yet this morning. back in bed to rest. call light in reach.
--- NOTE | 2017-06-27 07:41 | NUR ---
PATIENT IN BED ASLEEP. WHITEBOARD UPDATED, ROOM TIDIED.
--- NOTE | 2017-06-27 08:56 | NUR ---
pt sitting up in recliner. ate 100% of breakfast. took all scheduled medications. vanco not available from pharmacy. cefepime started. sosa blood for labs from [facility] port. flushed with 20ml NS and started cefepime. lungs dim in bases. some exp wheeze heard. fine crackles in RUL. using I/S now. regular diet tolerating well. no SOB now. Pain 7/10 in back. dilaudid given at 0530. due for pain meds now.
--- NOTE | 2017-06-27 09:35 | NUR ---
PT IN RECLINER AFTER GOING TO BATHROOM. IV POLE PLUGGED IN NOW. THIS RN ADMINISTERING BREATHING TREATMENTS RESP THERAPIST BUSY. O2 SAT 93% ON ROOM AIR AT START OF BREATHING TREATMENT AND HR 83 PER CONTINUOUS PULSE OX MONITOR. PT REPORTS SHE HAD A BM TODAY.
--- NOTE | 2017-06-27 10:21 | NUR ---
VITALS AND I AND O DONE
--- NOTE | 2017-06-27 15:05 | NUR ---
PT CLEARED BY PHYSICAL THERAPY AND DISCHARGED FROM PT TREATMENT. PT SALINE LOCKED IN [place] PORT NOW. CLEARED BY THIS RN TO AMBULATE INDEPENDENTLY IN ROOM. SUPERVISED PATIENT UNHOOKING HERSELF FROM CONTINUOUS PULSE OX AND SAFELY AMBULATING TO BATHROOM. SIGNIFICANT OTHER AT BEDSIDE VISITING NOW WITH DOG.
--- NOTE | 2017-06-27 17:46 | NUR ---
PATIENT DOING VERY WELL. ROOM AIR. LUNGS SLIGHTLY WHEEZY IN UPPER LOBES. FINE CRACKLES IN UPPER RIGHT LOBE HEARD. GOOD AT USING INCENTIVE SPIROMETER. DILAUDID FOR BACK PAIN GIVEN X2 (LAST AT 1445). [place] PORT A CATH ACCESSED. HEP LOCKED BETWEEN ABX. REGULAR DIET. APPETITE IMPROVING TODAY. INDEPENDENT IN ROOM. ENCOURAGE AMBULATION IN HALLS. CONTINUOUS PULSE OX. NEBS SCHEDULED.
--- NOTE | 2017-06-27 19:05 | NUR ---
SHIFT REPORT RECIEVED. PATIENT RESTING IN RECLINER. APPEARS TO BE IN GOOD SPIRITS. REQUESTING PRN PAIN MEDS. AGREED TO RETURN FOLLOWING REPORT.
--- NOTE | 2017-06-27 19:35 | NUR ---
PRN PAIN MEDS GIVEN FOR CHRONIC NECK/BACK PAIN, 02/08. PATIENT IN RECLINER. DENIES OTHER NEEDS AT THIS TIME. CALL LIGHT IN REACH.
--- NOTE | 2017-06-27 21:20 | NUR ---
EVENING MEDS GIVEN. PORT FLUSHED WITH NS AND RETURNED BLOOD EASILY. IV ABX ADMINISTERED. RT IN ROOM FOR NEDS.
--- NOTE | 2017-06-27 21:45 | NUR ---
PATIENT UP TO THE BATHROOM AND THEN TO BED. DECLINED TO GO FOR A WALK THIS EVENING. VS COMPLETED, WNL. PATIENT IS AAAOX3. LUNGS HAVE SLIGHT EXPIRTORY WHEEZE IN UPPER LOBES BILATERALLY AND DIMINISHED IN THE BASES. ABD IS MILDLY DISTENDED, NONTENDER, BOWEL SOUND ACTIVE. CMS INTACT. CM HOSES ON BILATERALLY. PAIN IS 6/10. NO OTHER NEEDS AT THIS TIME.
--- NOTE | 2017-06-27 22:40 | NUR ---
PRN PAIN MEDS GIVEN FOR 9/10 CHRONIC BACK & NECK PAIN. CRACKERS AND AN ENSURE PROVIDED. NO OTHER NEEDS. CALL LIGHT IN REACH.
--- NOTE | 2017-06-28 00:05 | NUR ---
PATIENT RESTING, EYES CLOSED. RR 17. CALL LIGHT IN REACH.
--- NOTE | 2017-06-28 02:15 | NUR ---
PATIENT RESTING IN BED. EYES CLOSED. RR17. CALL LIGHT IN REACH.
--- NOTE | 2017-06-28 03:25 | NUR ---
PATIENT UP TO THE BATHROOM. REQUESTED PRN PAIN MEDS FO RCHRONIC PAIN 01/08. PRN PAIN MEDS PROVIDED.
--- NOTE | 2017-06-28 08:20 | NUR ---
BEDSIDE REPORT RECEIVED FROM ROSALINA BROTHERS AT 0700. ALL QUESTIONS ANSWERED. PT SITTING UP IN RECLINER NOW. HAS FINISHED BREAKFAST. TAKING SCHEDULED MEDICATIONS WITH PRN HYDROCODONE 8MG NOW FOR BACK AND NECK PAIN OF 8. PATIENT AND RN GOAL TODAY IS TO AMBULATE HALLS X3.
--- NOTE | 2017-06-28 10:04 | NUR ---
ambulated patient in halls. 1 lap med surg unit. pt tolerated well. slightly SOB at end of walk. on room air throughout walk. in recliner now with feet elevated. call light within reach. vanco and cefepime infusing now.
--- NOTE | 2017-06-28 11:11 | NUR ---
PT SITTING UP IN RECLINER WATCHING TELEVISION. REPORTS 7/10 PAIN. HYDROMORPHONE 8MG GIVEN PO. CEFEPIME INFUSING NOW. MILY DONE INFUSING. TALKING TO SIGNIFICANT OTHER ON PHONE NOW. HANDED PATIENT BOTTLE OF LOTION PER REQUEST. NO OTHER NEEDS AT THIS TIME.
--- NOTE | 2017-06-28 11:23 | NUR ---
PT IN CHAIR. CHANGED LINENS. FRESH ICE WATER. VITELS AND I AND O
--- NOTE | 2017-06-28 13:47 | NUR ---
HELPED PATIENT WALK AROUND SHE DID ONE LAP AND TOLERATED IT PRETTY WELL TOWARDS THE VERY END SHE BECAME WINDED BUT TOOK DEEP BREATHS AND CAUGHT HER BREATH BACK.
--- NOTE | 2017-06-28 14:47 | NUR ---
CHANGED CENTRAL LINE DRESSING ON [place] PORT. MADE SURE PORT STILL DRAWING BLOOD AND FLUSHING AFTERWARDS. PORT WORKING WNL. DRAWS BLOOD.
--- NOTE | 2017-06-28 15:11 | NUR ---
TOOK PT TO THE BR
--- NOTE | 2017-06-28 17:59 | NUR ---
AMBULATED HALLS X3 TODAY. CENTRAL LINE PORT A CATH DRESSING CHANGE TODAY. VANCO AND CEFEPIME. DISCHARGE THURSDAY AFTER ABX FINISH. DILAUDID GIVEN X3 TODAY FOR BACK AND NECK PAIN. TOLERATES AMBULATION WELL. SOB TOWARD END OF LAP. REGULAR DIET. APPETITE IMPROVING.
--- NOTE | 2017-06-28 18:05 | NUR ---
TOOK PT DINNER AND SET HER UP. FRESH ICE WATER
--- NOTE | 2017-06-28 19:55 | NUR ---
RECEIVED REPORT FROM DAY SHIFT RN. PATIENT IS RESTING IN RECLINER. NO NEEDS NOTED AT THIS TIME. CALL LIGHT IN REACH.
--- NOTE | 2017-06-28 21:10 | NUR ---
PATIENT ASSESMENT COMPLETED. PATIENTS EVENING MEDICATIONS GIVEN PER ORDER. PATIENT REQUESTED PAIN MEDICATION AND RATES PAIN AT A 8/10 IN HER BACK AND NECK. PATIENT GIVEN PRN PAIN MEDICATION PER ORDER. PATIENT ALSO GIVEN HEAT PACK FOR NECK. PATIENT DENIES ANY FURTHER NEEDS. CALL LIGHT IN REACH.
--- NOTE | 2017-06-28 23:21 | NUR ---
PATIENT ASSISTED TO THE RESTROOM. WILLIE IS A SBA AND IS STEADY ON HER FEET. PATIENT WAS ABLE TO VOID. PATIENT IS REQUESTING PAIN MEDICATION WHEN AVAILABLE. WILL BRING IN WHEN DUE. NO FURTHER NEEDS NOTED CALL LIGHT IN REACH.
--- NOTE | 2017-06-29 00:11 | NUR ---
PATIENT GIVEN PRN PAIN MEDICATION PER ORDER FOR 8/10 NECK AND BACK PAIN. PATIENT CONTINUES TO HAVE A WARM PACK ON HER NECK AND UPPER BACK. PATIENT DENIES ANY FURTHER NEEDS AT THIS TIME. CALL LIGHT IN REACH.
--- NOTE | 2017-06-29 02:15 | NUR ---
PATIENTS PORT IS NOW SL. PATIENT DENIES ANY NEEDS AT THIS TIME. CALL LIGHT IN REACH.
--- NOTE | 2017-06-29 04:07 | NUR ---
PATIENT CALLED AND REQUESTED PAIN MEDICATION FOR HER NECK AND BACK. PATIENT RATES PAIN AT AN 8\1O. PATIENT GIVEN PRN PAIN MEDICAITON PER ORDER. PATIENT DENIES ANY FURTHER NEEDS AT THIS TIME. PATIENT REMAINS INDEPENDENT IN THE ROOM. CALL LIGHT IN REACH.
--- NOTE | 2017-06-29 05:07 | NUR ---
PATIENT RESTED WELL THROUGHOUT THE SHIFT. PATIENT IS ON A REGULAR DIET. PATIENT HAS A PORT ON HER LEFT SIDE THAT IS HEPLOCKED WHEN NOT IN USE. PATIENT IS INDEPENDENT IN THE ROOM. PATIENT RECEIVED PRN PAIN MEDICATION MULTIPLE TIMES WHEN AVAIALBLE. PATIENT IS ON DROPLET PRECAUTIONS AT THIS TIME. PATIENT HAS A THE [employer] HEATING PAD FOR PAIN IN HER NECK AND BACK. PATIENT IS AAO X3 AND USES CALL LIGHT APPROPRIATELY.
--- NOTE | 2017-06-29 06:55 | NUR ---
PATIENTS MORNING MEDICATIONS GIVEN PER ORDER. PATIENT REQUESTS PAIN MEDICATION FOR 8/10 PAIN IN HER BACK AND NECK. PATIENT GIVEN PRN PAIN MEDICATION PER ORDER. PATIENT DENIES ANY FURTHER NEEDS AT THIS TIME. CALL LIGHT IN REACH.
--- NOTE | 2017-06-29 07:52 | NUR ---
pt sitting in bed awake watching television now. will go on a walk after meds taken. vanco and cefepime not available from pharmacy yet. ice water provided to patient. no needs at this time.
--- NOTE | 2017-06-29 08:00 | NUR ---
PATIENT AMBULATING IN HALLWAY.
--- NOTE | 2017-06-29 08:28 | NUR ---
PT AMBULATED 1 LAP MED SURG. BREAKFAST DELIVERED TO ROOM. PT UP IN CHAIR WITH WARM PAD ON BACK.
--- NOTE | 2017-06-29 10:29 | NUR ---
GAVE PATIENT CARLOS
--- NOTE | 2017-06-29 10:30 | NUR ---
PATIENT AGREED TO SHOWER AFTER HER IV ANTIBIOTICS ARE FINISHED. ORAL CARE DONE. FRESH ICE WATER, COFFEE, AND A GLUCERNA GIVEN. PATIENT RESTING IN CHAIR WITH EYES CLOSED. NO OTHER NEEDS AT THIS TIME.
[2017-06-29] MEDS ORDERED: GILOTRIF30 MG PO (11:00)
[2017-06-29] MEDS ORDERED: METHOTREXATE2.5 MG PO (11:01)
[2017-06-29] MEDS ORDERED: LACTULOSE20 GM/30 M PO (11:02)
[2017-06-29] MEDS ORDERED: PREDNISONE5 MG PO (11:03)
[2017-06-29] MEDS ORDERED: SENNA-TIME S T1 EACH PO (11:03)
--- NOTE | 2017-06-29 11:41 | NUR ---
Vancomycin trough level ordered for 06/30/17 at 0830
--- NOTE | 2017-06-29 12:41 | NUR ---
pt sitting up in recliner. gave extra dose of lactulose. pt reports feeling gassy. eating lunch now. has decided to wait until tomorrow for her shower. saline locked port.
--- NOTE | 2017-06-29 14:50 | NUR ---
PATIENT SITTING UP IN CHAIR WATCHING TV. OFFERED TO SET HER UP FOR A BATH OR SHOWER. PATIENT REFUSED AND STATES SHE WILL WANT ONE TOMORROW. FRESH ICE WATER GIVEN. NO OTHER NEEDS AT THIS TIME.
--- NOTE | 2017-06-29 16:15 | NUR ---
PATIENT SITTING UP IN CHAIR WATCHING TV. PATIENT ASKED FOR PAIN MEDICATION. RN NOTIFIED. NO OTHER NEEDS AT THIS TIME.
--- NOTE | 2017-06-29 17:57 | NUR ---
PATIENT UP TO BATHROOM. FRESH ICE WATER GIVEN. NO OTHER NEEDS AT THIS TIME.
--- NOTE | 2017-06-29 17:57 | NUR ---
sba in halls-- encourage ambulation. independent in room. appetite improving. home tomorrow after antibiotics. room air. SOB after lap of walking. vanco and cefepime IV. port in [place]. dressing changed yesterday. C/D/I
--- NOTE | 2017-06-29 19:10 | NUR ---
IN ROOM FOR REPORT, PT IS SITTING IN CHAIR WITH CALL LIGHT IN REACH AND NO REQUESTS.
--- NOTE | 2017-06-29 20:40 | NUR ---
ASSESSED PT, SHE CONTINUES TO RATE PAIN HIGH WITH PRN DILAUDID, WE DISCUSSED KEEPING ON TOP OF IT Q3H. WHEEZES AUSCULTATED BUT PT DOES NOT COMPLAIN OF SOB. PT IS STEADY ON HER FEET AND MOVING INDEPENDENTLY IN ROOM. HEAT PAD ON SHOULDER/BACK, HOB ELEVATED, IS AT BEDSIDE AND CALL LIGHT WITHIN REACH. PT HAS NO REQUESTS AT THIS TIME.
--- NOTE | 2017-06-30 00:45 | NUR ---
WOKE PT TO STAY ON TOP OF HER PAIN, SHE RATES IT AT 7/10 AT THIS TIME, 8MG PO DILAUDID GIVEN. PT UP TO RESTROOM, NO OTHER NEEDS AT THIS TIME.
--- NOTE | 2017-06-30 01:26 | NUR ---
PATIENT IS NOW SL. IV ABX COMPLETED. PATIENT IS RESTING IN BED WITH EYES CLSOED, RR 17. CALL LIGHT IN REACH.
--- NOTE | 2017-06-30 03:03 | NUR ---
PT IS RESTING WITH EYES CLOSED, RESPIRATIONS EVEN AND NONLABORED. CALL LIGHT IS WITHIN REACH.
--- NOTE | 2017-06-30 03:36 | NUR ---
WOKE PT TO GIVE PRN PO DILAUDID, PT RATES PAIN AT 7/10 AT THIS TIME. WHEEZES AUSCULTATED BILAT LUNGS, PT HAS NO SOB AT THIS TIME. PT HAS NO REQUESTS, CALL LIGHT WITHIN REACH.
--- NOTE | 2017-06-30 04:50 | NUR ---
PT SLEPT WELL MOST OF THE NIGHT BETWEEN DOSES OF PRN PO DILAUDID FOR CHRONIC BACK AND NECK PAIN. PT'S LUNGS CONTINUE TO SOUND WHEEZY AND BOWEL TONES ARE ACTIVE. PT IS VOIDING QS. IV ABX GIVEN AND PORT IS SL.
--- NOTE | 2017-06-30 05:43 | NUR ---
PATIENT IS UP TO THE RESTROOM. PATIENT IS INDEPENDENT IN THE ROOM. PATIENTS VITALS TAKEN AND RECORDED. PATIENT DENIES ANY NEEDS AT THIS TIME. CALL LIGHT IN REACH.
--- NOTE | 2017-06-30 06:35 | NUR ---
ADMINISTERED 8MG DILAUDID PO FOR 12/08, PT HAS FRESH WATER AT BEDSIDE AND NO FURTHER REQUESTS. CALL LIGHT IS WITHIN REACH.
--- NOTE | 2017-06-30 07:51 | NUR ---
PT SLEEPING SOUNDLY DURING BEDSIDE REPORT. WHITEBOARD UPDATED. PLAN TO DISCHARGE PATIENT AFTER ANTIBIOTICS INFUSED. VANCO TROUGH PLANNED FOR THIS MORNING AT 0830. WILL HANG DOSE WHEN READY FROM PHARMACY. PT UP TO CHAIR NOW TO EAT BREAKFAST. WARM PACK ([employer]) ON BACK FOR COMFORT.
--- NOTE | 2017-06-30 08:54 | NUR ---
SET PT UP FOR SHOWER. AM CARE. TOOK CONG CUEVAS
--- NOTE | 2017-06-30 10:44 | NUR ---
VANCO TROUGH FOUND TO BE "NOT RECEIVED" ACCORDING TO [facility]. THIS RN CALLED LAB TO SEE IF BLOOD TUBES RECEIVED FROM TUBE SYSTEM. PT BLOOD DRAWN AT 0850 FROM [facility] PORT. TUBES FILLED (LEFT BY [employer]) AND LABELED BY [facility]. SENT IN TUBE SYSTEM TO LAB AT 0855, BUT BUTTON NEVER PUSHED TO SEND TO LAB. LEFT IN TUBE SYSTEM UNTIL FOUND AT 1030.
--- NOTE | 2017-06-30 11:03 | NUR ---
TOOK PT A WARM BLANKET. FRESH ICE WATER.
== END 2017-06-30 14:00 | disposition home or self-care (01) | DRG 178 ==
LOC: ED 08:42 → MS 08:43 → ED 12:59 → MS 06-24 11:15
PROVIDERS: ADMIT Internal Medicine
DX: J11.08 Influenza due to unidentified influenza virus with specified pneumonia (principal); J44.0 Chronic obstructive pulmonary disease with (acute) lower respiratory infection; J15.6 Pneumonia due to other Gram-negative bacteria; J44.1 Chronic obstructive pulmonary disease with (acute) exacerbation; C34.80 Malignant neoplasm of overlapping sites of unspecified bronchus and lung; K21.9 Gastro-esophageal reflux disease without esophagitis; E78.5 Hyperlipidemia, unspecified; E03.9 Hypothyroidism, unspecified; K59.03 Drug induced constipation; T40.2X5A Adverse effect of other opioids, initial encounter; M06.9 Rheumatoid arthritis, unspecified; I10 Essential (primary) hypertension; F17.200 Nicotine dependence, unspecified, uncomplicated; G89.4 Chronic pain syndrome; D63.0 Anemia in neoplastic disease; F39 Unspecified mood [affective] disorder; Z90.710 Acquired absence of both cervix and uterus; Z98.1 Arthrodesis status
CPT/HCPCS: 36415; 71046; 71260; 80053; 80202; 82565; 83615; 83735; 84520; 85025; 87070; 87205; 94640; 94667; 94668; 94760; 94762; 97116; 97163; 97165; 99407; G8978; G8979; J0692; J0780; J1650; J2405; J2550; J3370; J7040; J7050; J7512; Q9967

== ENCOUNTER 2018-01-25 13:12 | Observation (INO) | payer MEDICARE, OTHER ==
[~2018-01-25] VITALS: Ht 157.5 cm; Wt 62.1 kg
--- OUTSIDE RECORDS SUMMARY | ~2018-01-25 | XMS | Encounter Summary ---
Demographics + + + | Address | [address] | | | [place] [address] | + + + | Home Phone | | + + + | Preferred Language | Unknown | + + + | Marital Status | | + + + | Alevism Affiliation | Unknown | + + + | Race | Unknown | + + + | Ethnic Group | Unknown | + + + Author + + + | Author | [facility] | | | and [facility] | + + + | Organization | [facility] | | | and [facility] | + + + | Address | Unknown | + + + | Phone | Unavailable | + + + Support + + + + + | Name | Relationship | Address | Phone | + + + + + | Jewel Azevedo | ECON | [address] | | | | | [place], [place] | | | | | [address] | | + + + + + | Mirza Bee | ECON | [address] | | | | | [place] | | | | | [address] | | + + + + + Care Team Providers + +------+ + | Care Glaze Carrier Name | Role | Phone | + +------+ + | Davis Ivan MD | PCP | | + +------+ + Encounter Details +--------+ + + + + | Date | Type | Department | Care Team | Description | +--------+ + + + + | 10/27/ | Procedure | [facility] | | | | 2017 | Pass | [facility] | | | | | | [address] | | | | | | [place], [place] | | | | | | [address] | | | | | | [phone] | | | +--------+ + + + [...] + +---------+ + | Alcohol Use | Drinks/We | oz/Week | Comments | | | ek | | | + + +---------+ + | No | 0 | 0.0 | pt states she was an alcoholic for 40 years | | | Standard | | but quit in 05/2012 | | | drinks or | | | | | | | | | | equivalen | | | | | t | | | + + +---------+ + + + + | Sex Assigned at | Date Recorded | | | | + + + | Not on file | | + + + as of this encounter Plan of Treatment Not on fileas of this encounter Visit Diagnoses Not on filein this encounter"
--- OUTSIDE RECORDS SUMMARY | ~2018-01-25 | XMS | Clinical Summary ---
Demographics + + + | Address | [address] | | | [place] [address] | + + + | Home Phone | | + + + | Preferred Language | Unknown | + + + | Marital Status | | + + + | Christianity Affiliation | Unknown | + + + | Race | Unknown | + + + | Ethnic Group | Unknown | + + + Author + + + | Author | [facility] | | | and [place] | + + + | Organization | [facility] | | | and [place] | + + + | Address | Unknown | + + + | Phone | Unavailable | + + + Support + + + + + | Name | Relationship | Address | Phone | + + + + + | Jewel Azevedo | ECON | [address] | | | | | [place] | | | | | [address] | | + + + + + | Mirza Bee | ECON | [address] | | | | | [place] | | | | | [address] | | + + + + + Care Team Providers + +------+ + | Care Trimmer Helper Name | Role | Phone | + +------+ + | Davis Ivan MD | PP | | + +------+ + Allergies No Known Allergies Current Medications + + + +---------+------+------+-------+ | Prescription | Sig. | Disp. | Refills | Star | End | Statu | | | | | | t | Date | s | | | | | | Date | | | + + + +---------+------+------+-------+ | simvastatin | Take 40 mg by mouth | | | | | Activ | | (ZOCOR) 40 mg tablet | nightly. | | | | | e | + + + +---------+------+------+-------+ | cholecalciferol | Take 2,000 Units by | | | | | Activ | | (VITAMIN D-3) 1,000 | mouth Daily. | | | | | e | | units capsule | | | | | | | + + + +---------+------+------+-------+ | clopidogrel | Take 75 mg by mouth | | | | | Activ | | (PLAVIX) 75 mg | Daily. | | | | | e | | tablet | | | | | | | + + + +---------+------+------+-------+ | Respiratory | Use as directed with | 1 each | 0 | 04/0 | | Activ | | Therapy Supplies | nebulizer | | | 8/20 | | e | | (NEBULIZER | medication. Dx: | | | 16 | | | | COMPRESSOR) KIT | J43.1 CASIE: 99 months | | | | | | + + + +---------+------+------+-------+ | pantoprazole | Take 40 mg by mouth | | 0 | 05/1 | | Activ | | (PROTONIX) 40 mg | 2 times daily | | | 8/20 | | e | | tablet | (before meals). | | | 16 | | | + + + +---------+------+------+-------+ | levothyroxine | Take 125 mcg by | | 0 | 05/0 | | Activ | | (SYNTHROID, | mouth every morning | | | 6/20 | | e | | LEVOTHROID) 125 mcg | (before breakfast). | | | 16 | | | | tablet | | | | | | | + + + +---------+------+------+-------+ | predniSONE | take 2 tablets by | | 0 | 10/2 | | Activ | | (DELTASONE) 5 mg | mouth every morning | | | 4/20 | | e | | tablet | | | | 16 | | | + + + +---------+------+------+-------+ | afatinib | Take 30 mg by mouth | | | | | Activ | | (GILOTRIF) 30 mg | every morning | | | | | e | | tablet | (before breakfast). | | | | | | + + + +---------+------+------+-------+ | | Take 3 mLs by | 360 mL | 3 | 03/0 | | Activ | | albuterol-ipratropiu | nebulization 4 times | | | 6/20 | | e | | m (DUONEB) 2.5-0.5 | daily. CASIE: 12 | | | 17 | | | | mg/3 mL | months Dx: J44.9 | | | | | | | SOLNIndications: | | | | | | | | Chronic obstructive | | | | | | | | pulmonary disease, | | | | | | | | unspecified COPD | | | | | | | | type ([facility]) | | | | | | | + + + +---------+------+------+-------+ | venlafaxine | take 1 tablet by | | 0 | 04/0 | | Activ | | (EFFEXOR XR) 75 mg | mouth every morning | | | 4/20 | | e | | 24 hr tablet | AT THE SAME TIME | | | 17 | | | | | EACH DAY WITH FOOD | | | | | | + + + +---------+------+------+-------+ | raNITIdine | take 1 tablet by | | 0 | 05/1 | | Activ | | (ZANTAC) 300 MG | mouth twice a day | | | 1/20 | | e | | tablet | | | | 17 | | | + + + +---------+------+------+-------+ | furosemide (LASIX) | Take 20 mg by mouth | | 0 | 05/2 | | Activ | | 20 mg tablet | Daily. | | | 8/20 | | e | | | | | | 17 | | | + + + +---------+------+------+-------+ | BREO ELLIPTA | Inhale 1 puff into | | 0 | 05/3 | | Activ | | 100-25 MCG/INH | the lungs Daily. | | | 0/20 | | e | | inhaler | | | | 17 | | | + + + +---------+------+------+-------+ | tiotropium | Inhale 18 mcg into | | | | | Activ | | (SPIRIVA) 18 mcg | the lungs Daily. | | | | | e | | inhalation capsule | | | | | | | + + + +---------+------+------+-------+ | potassium chloride | | | 0 | 05/2 | | Activ | | (K-DUR) 20 mEq ER | | | | 1/20 | | e | | tablet | | | | 18 | | | + + + +---------+------+------+-------+ | NARCAN 4 MG/0.1ML | instill 1 spray in 1 | | 0 | 05/1 | | Activ | | | NOSTRIL if needed | | | 0/20 | | e | | | for opioid overdose | | | 18 | | | | | may re... (REFER TO | | | | | | | | PRESCRIPTION | | | | | | | | NOTES). | | | | | | + + + +---------+------+------+-------+ | rOPINIRole | Take 2 tablets by | | 0 | 06/1 | | Activ | | (REQUIP) 0.5 MG | mouth nightly. | | | 2/20 | | e | | tablet | | | | 18 | | | + + + +---------+------+------+-------+ | methotrexate 2.5 | take 6 tablets by | | 0 | 06/2 | | Activ | | MG | mouth every week | | | 5/20 | | e | | tabletIndications: | | | | 18 | | | | Right hand pain | | | | | | | + + + +---------+------+------+-------+ Active Problems + + + | Problem | Noted Date | + + + | Pharyngeal dysphagia | 11/30/2015 | + + + | Recurrent pneumonia | 11/07/2015 | + + + | Difficulty in swallowing | 11/07/2015 | + + + | CAP (community acquired pneumonia) | 10/03/2015 | + + + | Radiation pneumonitis (HCC) | 03/08/2015 | + + + | 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 blandon in March | | 2012 for a pulmonary nodule, right lower lobe measuring 1.9 cm, | | biopsy was considered risky . Nodule was considered likely | | infectious/inflammatory as the patient was immunosuppressed , on | | methotrexate for rheumatoid arthritis. 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 And lewis 2.CT-guided biopsy by | | interventional radiology at [facility] of the right lung massshows | | squamous cell carcinoma, moderately differentiated positive for p | | 40 and negative for TTF-1. 3.PET/CT scan 08/11/2013 showed | | increased size of the right lung lesion with a maximum SUV of | | 6.26. In the right hilar region, a 0.9 cm lymph node was present | | with maximum SUV of 4.46 consistent with metastatic disease 4. | | seen by Dr. Mace , thoracic surgeon at [facility] for | | consideration of bronchoscopy, right thoracoscopy, thoracic | | lymphadenectomy to rule out N2 disease, probable lower lobectomy, | | possible thoracotomy . Date: September 16, 2013,5. Right minimally | | invasive lower lobe lobectomy and minimally invasive | | thoracoscopic lymphadenectomy : Dr. José Miguel mace : 09/16/13:3.2x | | 3.0x1.7 cm tumor, squamous carcinoma, focally invades the | | visceral pleura without involvement of visceral pleural surface, | | all margins uninvolved, all 10 lymph nodes negative for | | malignancy, T2aN0, stage IB.6. Presented with an enlarging right | | upper lobe lung nodule in June 2014. PET CT scan showed an SUV | | of 2.7 and a large right necrotic hilar lymph node with an SUV | | of 12.4.7. Bronchoscopy and EBUS guided FNA of right hilar lymph | | node: 07/11/2014: Positive for malignant cells. Keratinizing | | squamous cell carcinoma8. Completed concurrent chemoradiation | | with weekly carboplatin and Taxol in August 20149. Admitted to | | [facility] on September 27, 2014 for right-sided chest | | pain secondary to acute bronchitis.10. CT chest [facility] on September 28, 2014 demonstrated persistent 32 mm x 26 mm | | x 27 mm Right Hilar Mass. Last Assessment & Plan: Stephanie | | returned to the [facility] on | | November 09, 2014 for follow up of her locally recurrent RIGHT Lung | | cancer. Interval history is notable for the fact that Thea was | | admitted to [facility] in [place], [place] for acute | | exacerbation of chronic bronchitis. During her hospitalization | | there, a chest CT was performed demonstrating a persistent 32 x | | 26 mm right hilar mass. These images were reviewed subsequently | | at the [facility] on their PACS system. Radiographic | | abnormality in the right hilum may represent persistent tumor or | | simply residual, non viable tissue following combined modality | | therapy.Since therapeutic effect of irradiation may be delayed, I | | recommended waiting an additional month before proceeding with | | repeat PET scan to assess for persistent disease. PET/CT schedule | | at [facility] on December 21, 2014 with follow up at [facility] | | the following week. 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 | + + + +---+ | Sputum culture positive for Scopulariopsis species | | + +---+ + + | Overview: sputum culture positive for SCOPULARIOPSIS SPECIES | + + Resolved Problems + + + + | Problem | Noted | Resolved | | | Date | Date | + + + + | Squamous cell carcinoma of lung, stage Ib | 09/30/19 | | | | 14 | 5 | + + + + | Acute sinusitis | 09/15/19 | | | | 14 | 4 | + + + + | Pulmonary nodule | 03/30/20 | | | | 13 | 4 | + + + + Encounters +--------+ + + + + | Date | Type | Specialty | Care Team | Description | +--------+ + + + + | 12/16/ | Hospital | | Giuliano Padilla, | Left hand pain | | 2017 | Encounter | | MD | | +--------+ + + + + | 12/16/ | Office | | Giuliano Padilla, | Right hand pain | | 2017 | Visit | | MD | (Primary Dx); Left | | | | | | hand pain; Postop | | | | | | check | +--------+ + + + + | 11/19/ | Office | | Gurmeet Vargas | Chronic obstructive | | 2018 | Visit | | MD Guilherme | bronchitis (HCC) | | | | | | (Primary Dx); | | | | | | History of lung | | | | | | cancer; Chronic | | | | | | diarrhea; Sleep | | | | | | disturbance | +--------+ + + + + | 11/19/ | Orders Only | | Gurmeet Vargas | Sleep disturbance | | 2017 | | | MD Guilherme | (Primary Dx) | +--------+ + + + + | 11/09/ | Office | | Giuliano Padilla, | Postop check | | 2017 | Visit | | | (Primary Dx) | +--------+ + + + + | 10/27/ | Hospital | | Giuliano Padilla, | Osteoarthritis of | | 2018 | Encounter | | | first | | | | | | carpometacarpal | | | | | | [place] joint of one | | | | | | hand | +--------+ + + + + | 10/27/ | Hospital | | Giuliano Padilla, | | | 2017 | Encounter | | | | +--------+ + + + + | 10/27/ | Procedure | | | | | 2017 | Pass | | | | +--------+ + + + + | 10/27/ | Surgery | | Giuliano Padilla, | Right 1st [facility] | | 2017 | | | MD | Arthroplasty | +--------+ + + + + 10/23/ | Anesthesia | | Sarita Rankin | | | 2017 | Event | | Festus ALFARO MD | | +--------+ + + + + from Last 3 Months Immunizations + + + + | Name | Dates Previously Given | Next Due | + + + + | INFLUENZA 64 Y OR >, | 04/10/2017, 2016, 03/02/2015 | | | TRIVALENT HIGH-DOSE | | | + + + + | INFLUENZA PF 17 Y OR | 02/15/2014, 03/22/2013 | | | >,TRIVALENT | | | | RECOMBINANT | | | + + + + | PNEUMOCOCCAL | 07/14/2014 | | | CONJUGATE 13-VALENT | | | | (PCV13) | | | + + + + | PNEUMOCOCCAL | 03/01/2011 | | | POLYSACCHARIDE | | | | 23-VALENT (PPSV23) | | | + + + + Family History + + +------+ + | Medical History | Relation | Name | Comments | + + +------+ + | Alcohol abuse | Brother | | | + + +------+ + | Lung cancer | Brother | | | + + +------+ + | Tobacco Use | Brother | | | + + +------+ + | Cancer | Father | | stomach | + + +------+ + | COPD | Sister | | | + + +------+ + | Tobacco Use | Sister | | quit 1 year ago | + + +------+ + + +------+ + + | Relation | Name | Status | Comments | + +------+ + + | Brother | | | lung cancer | | | | (Age | | | | | 55) | | + +------+ + + | Father | | | stomach cancer | | | | (Age | | | | | 85) | | + +------+ + + | Mother | | | in a fire | | | | (Age | | | | | 85) | | + +------+ + + | Sister | | Alive | | + +------+ + + | Sister | | Alive | | + +------+ + + Social History + + + [...] on file | | + + + Last Filed Vital Signs + + + + | Vital Sign | Reading | Time Taken | + + + + | Blood Pressure | 118/62 | 11/19/2017 1352 PDT | + + + + | Pulse | 90 | 11/19/20171351 PDT | + + + + | Temperature | 36.8 C (98.3 F) | 11/19/20171351 PDT | + + + + | Respiratory Rate | 15 | 10/27/20175 PDT | + + + + | Oxygen Saturation | 97% | 11/19/20171351 PDT | + + + + | Inhaled Oxygen | - | - | | Concentration | | | + + + + | Weight | 58.5 kg (129 lb) | 12/16/2017 1527 PDT | + + + + | Height | 157.5 cm (5' 2") | 12/16/20171526 PDT | + + + + | Body Mass Index | 23.59 | 12/16/20171526 PDT | + + + + Plan of Treatment + + + + + | Health Maintenance | Due Date | Last Done | Comments | + + + + + | Vaccine: | | | | | Dtap/Tdap/Td (1 - | 3 | | | | Tdap) | | | | + + + + + | BREAST CANCER | | | | | SCREENING (MAMM Q2 | 4 | | | | YEARS 50-74) | | | | + + + + + | Vaccine: Zoster (1 | | | | | of 2) | 4 | | | + + + + + | Statin Therapy | | | | | (optimal intensity) | 5 | | | + + + + + | Vaccine: Influenza | | 04/10/2017, 2016, | | | (#1) | 8 | 03/02/2015, Additional history | | | | | exists | | + + + + + | Colorectal Cancer | | 06/01/2014 | | | Screening | 5 | | | | (Colonoscopy) | | | | + + + + + | Vaccine: | Completed | 07/14/2014, 03/01/2011 | | | Pneumococcal 65+ | | | | | High/Highest Risk | | | | + + + + + Implants + +------+--------+ +--------+--------+--------+ | Implanted | Type | Area | Manufacture | Device | Expira | Model | | | | | r | | tion | / | | | | | | Identi | Date | Serial | | | | | | fier | | / Lot | + +------+--------+ +--------+--------+--------+ | Port Imp Mri Powerport 8fr - | | | BARD ACCESS | | 03/20/ | [id number] | | [id number]: Qty: 1 on | | | SYSTEMS - | | 2016 | 0 / | | 07/28/2014 by , | | | ELLEN | | | /[id number] | | Chalino Gu MD, FACS | | | | | | 003 | + +------+--------+ +--------+--------+--------+ | Mini TightropeImplanted: Qty: | | Right: | ARTHREX | | 11/18/ | [id number] | | 1 on 03/20/2015 by Randy, | | Hand | [employer] | | 2020 | 9DS / | | Giuliano Briones MD | | | INC. | | | /[id number] | | | | | | | | 349 | + +------+--------+ +--------+--------+--------+ Procedures + +--------+ + + + | Procedure Name | Priori | Date/Time | Associated Diagnosis | Comments | | | ty | | | | + +--------+ + + + | XR HAND RIGHT 3 + VW | Routin | 12/16/2017 | Left hand pain | Results for this | | | e | 1519 PDT | | procedure are in the | | | | | | results section. | + +--------+ + + + | FL DAVID STATS NO | Routin | 10/27/2017 | | Results for this | | CHARGE | e | 1114 PDT | | procedure are in the | | | | | | results section. | + +--------+ + + + | ANE AIRWAY NOTE | Routin | 10/27/2017 | | Results for this | | | e | 1030 PDT | | procedure are in the | | | | | | results section. | + +--------+ + + + | ARTHROPLASTY HAND | | 10/27/2017 | Osteoarthritis of | | | | | 0935 PDT | first | | | | | | carpometacarpal | | | | | | ([facility]) joint of one | | | | | | hand (M18.9) | | + +--------+ + + + +---+--------+ | | Case | | | Notes | | | (No | | | reps | | | needed | | | )I | | | will | | | confir | | | m this | | | with | | | Rena | | | e-kkn | +---+--------+ | | | | | Specia | | | l | | | Needs | | | | | | Arthre | | | x- | | | Mini | | | Tightr | | | ope | | | 1st | | | [facility] | | | Arthro | | | plasty | | | Kit | +---+--------+ from Last 3 Months Results XR Hand Right 3 + Vw (12/16/2017 1519) + + + | Narrative | Performed At | + + + | XR HAND RIGHT 3 + VW 12/16/2017 3:17 PM HISTORY: s/p Right 1st | [facility] | | [facility] Arthoplasty DOS: 10/27/16. COMPARISON: None. FINDINGS: | | | No acute osseous abnormality identified. Post surgical changes are | | | seen related to surgical removal of the right trapezium. Mild | | | scattered intercarpal joint degenerative changes are present. Mild | | | scattered interphalangeal joint degenerative changes are present. No | | | evidence of traumatic malalignment. Mild radiocarpal joint | | | degenerative change. Soft tissues are unremarkable. IMPRESSION - | | | Post surgical changes are seen related to surgical removal of the | | | right trapezium. Mild scattered intercarpal, interphalangeal, | | | and radiocarpal joint degenerative changes are present. Dictated | | | and Signed by: Yovanny Chin MD Electronically signed: | | | 12/16/2017 6:28 PM | | + + + + + | Procedure Note | + + | Fabián, Rad Results In - 12/16/2017 1831 PDT XR HAND RIGHT 3 + VW 12/16/2017 3:17 PM | | | | HISTORY: s/p Right 1st [facility] Arthoplasty DOS: 10/27/16. | | | | COMPARISON: None. | | | | FINDINGS: | | No acute osseous abnormality identified. Post surgical changes are seen related | | to surgical removal of the right trapezium. Mild scattered intercarpal joint | | degenerative changes are present. Mild scattered interphalangeal joint | | degenerative changes are present. No evidence of traumatic malalignment. Mild | | radiocarpal joint degenerative change. Soft tissues are unremarkable. | | | | IMPRESSION - | | Post surgical changes are seen related to surgical removal of the right | | trapezium. | | | | Mild scattered intercarpal, interphalangeal, and radiocarpal joint degenerative | | changes are present. | | | | Dictated and Signed by: Yovanny Chin MD | | Electronically signed: 12/16/2017 6:28 PM | + + + +---------+ + + | Performing | Address | City/State/Zipcode | Phone Number | | Organization | | | | + +---------+ + + | [facility] | | | | + +---------+ + + FL C-Arm Stats No Charge (10/27/2017 1114) + + + | Narrative | Performed At | + + + | This exam has been auto-finalized and the interpretation may exist | [facility] | | elsewhere in the chart. | | + + + + +---------+ + + | Performing | Address | City/State/Zipcode | Phone Number | | Organization | | | | + +---------+ + + | [facility] | | | | + +---------+ + + Anesthesia Airway Note (10/27/2017 1030) + + + | Narrative | Performed At | + + + | Sarita Rankin II, MD 10/27/2017 10:31 Anesthesia Airway | | | Placement Preprocedure check: patient identified, oxygen, airway | | | assessed, patient reassessment prior to induction, airway equipment | | | checked and suction Rapid Sequence Induction: no Mask | | | ventilation: easy Attempts: 1 Airway type: laryngeal mask Size: | | | 3 Cuffed: cuffed Route, reference point: center of mouth Tube | | | secured with: adhesive tape Trauma: none Tube placement | | | verification: bilateral chest rise, equal bilateral breath sounds | | | and carbon dioxide detection Performing provider: SARITA RANKIN | | | ANGELINA Electronically Signed by: Sarita Rankin II, | | | MD Gracia | | | date/time: 10/27/2017 10:30 | | + + + + + | Procedure Note | + + | Sarita Rankin II, MD - 10/27/2017 1030 PDT Anesthesia Airway | | PlacementPreprocedure check: patient identified, oxygen, airway assessed, patient | | reassessment prior to induction, airway equipment checked and suctionRapid Sequence | | Induction: noMask ventilation: easyAttempts: 1Airway type: laryngeal maskSize: 3Cuffed: | | cuffedRoute, reference point: center of mouthTube secured with: adhesive tapeTrauma: | | noneTube placement verification: bilateral chest rise, equal bilateral breath sounds and | | carbon dioxide detectionPerforming provider: SARITA RANKIN IIElectronically | | Signed by: Sarita Rankin II, MD ESig date/time: 10/27/2017 | | 10:30 | |Route, reference point: center of mouth | |Tube secured with: adhesive tape | |Trauma: none | |Tube placement verification: bilateral chest rise, equal bilateral breath sounds and carbon dioxide detection | |Performing provider: SARITA RANKIN II | | | | | |Electronically Signed by: Sarita Rankin II, MD ESig date/time : 10/27/2017 10:30 | | | + + from Last 3 Months Insurance + +--------+ +--------+ +---------+ | Payer | Benefi | Subscriber | Type | Phone | Address | | | t Plan | ID | | | | | | / | | | | | | | Group | | | | | + +--------+ +--------+ +---------+ | [employer] | MODA | [id number] | Medica | | | | | HEALTH | | re | | | | | MDCR | | | | | + +--------+ +--------+ +---------+ | [employer] | [employer] | [id number] | Medica | +- | | | MEDICAID HMO | HEALTH | | id | [id number] | | | | [place]CD | | | | | | | [place] | | | | | + +--------+ +--------+ +---------+ + +--------+ +--------+ + + | Guarantor Name | Accoun | Relation to | Date | Phone | Billing Address | | | t Type | Patient | of | | | | | | | | | | + +--------+ +--------+ + + | THEA CARMONA | Person | Self [birth year] | Home: | [address] | [address] | [address] | | [phone] | [phone] | [place] [address] | | | jana | | | [phone] | | + +--------+ +--------+ + +
--- OUTSIDE RECORDS SUMMARY | ~2018-01-25 | XMS | Encounter Summary ---
Demographics + + + | Address | [address] | | | [place] [address] | + + + | Home Phone [...] | Author | [facility] | | | and [place] | + + + | Organization | [facility] | | | and [place] | [...] [place], [place] | | | | | [address] | | + + + + + | Mirza Bee | ECON | [address] | | | | | [place] | | | | | [address] | | + + + + + Care Team Providers + +------+ + | Care Carton Stenciler Name | Role | Phone | + +------+ + | Davis Ivan MD | PCP | | + +------+ + Reason for Visit +---------+ + | Reason | Comments | +---------+ + | Post Op | POST OP Right 1st [facility] Arthroplasty DOS: 10/27/16 | +---------+ + Encounter Details +--------+---------+ + + + | Date | Type | Department | Care Team | Description | +--------+---------+ + + + | 12/16/ | Office | [facility] | Giuliano Padilla, | Right hand pain | | 2018 | Visit | ORTHOPEDIC SURGERY | [address] | (Primary Dx); Left | | | | [address] [facility] | [place] | hand pain; Postop | | | | [place] | [id number] | check | | | | [address] | | | | | | [phone] | | | +--------+---------+ + + + [...] + + + as of this encounter Last Filed Vital Signs + + + + | Vital Sign | Reading | Time Taken | + + + + | Blood Pressure | - | - | + + + + | Pulse | - | - | + + + + | Temperature | - | - | + + + + | Respiratory Rate | - | - | + + + + | Oxygen Saturation | - | - | + + + + | Inhaled Oxygen | - | - | | Concentration | | | + + + + | Weight | 58.5 kg (129 lb) | 12/16/20171526 PDT | + + + + | Height | 157.5 cm (5' 2") | 12/16/2017 1527 PDT | + + + + | Body Mass Index | 23.59 | 12/16/2017 1527 PDT | + + + + in this encounter Progress Notes Giuliano Padilla MD - 12/16/2017 1545 PDTPatient returns postop right first [facility] arthroplast y She's doing very well She has good range of motion of her thumb and 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
--- OUTSIDE RECORDS SUMMARY | ~2018-01-25 | XMS | Clinical Summary ---
Demographics + + + | Address | [address] | | | [place] [address] | + + + | Home Phone | | + + + | Preferred Language | Unknown | + + + | Marital Status | | + + + | Zoroastrianism Affiliation | Unknown | + + + | Race | Unknown | + + + | Ethnic Group | Unknown | + + + Author + + + | Author | [facility] | + + + | Organization | [facility] | + + + | Address | Unknown | + + + | Phone | Unavailable | + + + Support + + +---------+ + | Name | Relationship | Address | Phone | + + +---------+ + | Mirza Bee | ECON | Unknown | | + + +---------+ + Care Team Providers + +------+ + | Care Computer Support Specialist Instructor Name | Role | Phone | + +------+ + | Davis Ivan MD | PP | Unavailable | + +------+ + Allergies No Known Allergies Current Medications + + +--------+---------+------+------+-------+ | Prescription | Sig. | Disp. | Refills | Star | End | Statu | | | | | | t | Date | s | | | | | | Date | | | + + +--------+---------+------+------+-------+ | PLAVIX 75 MG | Take 1 tablet by | | | 11/2 | | Activ | | tablet | mouth daily. | | | 2/20 | | e | | | | [...] | | | + + +--------+---------+------+------+-------+ | lisinopril | Take 1 tablet by | | | 04/02 | | Activ | | (PRINIVIL,ZESTRIL) | mouth daily. | | | 07/21 | | e | | 10 MG tablet | | | | 12 | | | + + +--------+---------+------+------+-------+ | methotrexate 2.5 | Take 25 tablets by | | | 04/01 | | Activ | | MG tablet | mouth once a week. | | | 01/18 | | e | | | Takes on Thursday | | | 12 | | | + + +--------+---------+------+------+-------+ | predniSONE | Take 1 tablet by | | | 03/02 | | Activ | | (DELTASONE) 5 MG | mouth 2 (two) times | | | 07/21 | | e | | tablet | [...] | | | + + +--------+---------+------+------+-------+ | aspirin 81 MG | Take 81 mg by mouth | | | | | Activ | | tablet | daily. | | | | | e | + + +--------+---------+------+------+-------+ | Magnesium 100 MG | Take 1 tablet by | | | | | Activ | | CAPS | mouth daily. | | | | | e | + + +--------+---------+------+------+-------+ | diazepam (VALIUM) | Take 10 mg by mouth | | | | | Activ | | 10 MG tablet | every 6 (six) hours | | | | | e | | | as needed. | | | | | | + + +--------+---------+------+------+-------+ | cloNIDine | Take 0.1 mg by mouth | | | | | Activ | | (CATAPRES) 0.1 MG | 2 (two) times | | | | | e | | tablet | daily. | | | | | | + + +--------+---------+------+------+-------+ | albuterol | [...] | | | + + +--------+---------+------+------+-------+ | morphine (MS | Take 1 tablet by | 60 | 0 | 11/0 | | Activ | | CONTIN) 30 MG 12 hr | mouth every 12 | tablet | | 9/20 | | e | | tablet | (twelve) hours. | | | 13 | | | + + +--------+---------+------+------+-------+ | folic acid | Take 1 mg by mouth | | | | | Activ | | (FOLVITE) 1 MG | daily. | | | | | e | | tablet | | | | | | | + + +--------+---------+------+------+-------+ | HYDROmorphone | Take 4 mg by mouth | | | | | Activ | | (DILAUDID) 4 MG | every 3 (three) | | | | | e | | tablet | hours as needed for | | | | | | | | Pain. | | | | | | + + +--------+---------+------+------+-------+ Active Problems + + + | Problem | Noted Date | + + + | Lumbar radicular pain [...] | | radicular pain. | + + Family History + + +------+ [...] + + + | Blood Pressure | 122/70 | 07/17/2015 2:20 PM PST | + + + + | Pulse | 82 | 07/17/2015 2:20 PM PST | + + + + | Temperature | 36.9 C (98.5 F) | 04/07/2014 12:12 PM PST | + + + + | Respiratory Rate | 17 | 07/17/2015 2:20 PM PST | + + + + | Oxygen Saturation | 98% | 04/07/2014 12:12 PM PST | + + + + | Inhaled Oxygen | - | - | | Concentration | | | + + + + | Weight | 77.6 kg (171 lb) | 07/17/2015 2:20 PM PST | + + + + | Height | 157.5 cm (5' 2") | 07/17/2015 2:20 PM PST | + + + + | Body Mass Index | 31.28 | 07/17/2015 2:20 PM PST | + + + + Plan of Treatment +--------+---------+ + + + | Date | Type | Specialty | Care Team | Description | +--------+---------+ + + + | 03/10/ | Office | | Abeba Douglas MD | | | 2017 | Visit | | [address] | | | | | | Place [place] | | | | | | [address] | | | | | | | | +--------+---------+ + + + | 04/08/ | Office | | Santosh Sumnre, | | | 2017 | Visit | | [address] | | | | | [address] | | | | | | [place] [address] | | | | | | [phone] | | | | | | | [...] + + | DEXA SCAN SCREENING | 12/14/200 | | | | | 9 | | | + + + + + | Statin Therapy | | | | | (optimal intensity) | 8 | | | + + + + + | Vaccine: Influenza | | 04/10/2017, 2016, | | | (#1) | 8 | 02/15/2014, Additional history | | | | | exists | | + + + + + | Vaccine: | Completed | 07/14/2014, 03/01/2011 | | | Pneumococcal 65+ | | | | | Low/Medium Risk | | | | + + [...] | N/A: | | | 08/20/ | [id number] | | Dbx 2.5ml - | | Spine | | | 2014 | | | [id number]: | | Cervic | | | | /92456 | | Qty: 1 on 01/19/2013 by | | al | | | | [id number] | | Silviano Cabrera MD | | | | | | 126604 | | | | | | | | 8 / | + +------+--------+ +--------+--------+--------+ | Cage Triad Allograft | | N/A: | | | 08/16/ | [id number] | | [id number] - | | Spine | | | 2018 | 7 | | [id number]: Qty: 1 | | Cervic | | | | /[id number] | | on 01/19/2013 by Tim Cabrera | | | | 8-185 | | MD Silviano | | | | | | / | + +------+--------+ +--------+--------+--------+ | Cage Triad Allograft 6mm - | | N/A: | | | 06/23/ | [id number] | | [id number]: Qty: 1 | | Spine | | | 2018 | 6 | | on 01/19/2013 by Rick, | | Cervic | | | | /37751 | | MD Silviano | | al | | | | 0-206 | | | | | | | | / | + +------+--------+ +--------+--------+--------+ | Screw Vectra Self Drilling | | N/A: | | | | 04.613 | | Variable Angle 4.0x14mm - | | Spine | | | | .514 | | [id number]: Qty: 2 on | | Cervic | | | | /[id number] | | 01/19/2013 by Silviano Cabrera, | | al | | | | 514 / | | | | | | | | | + +------+--------+ +--------+--------+--------+ | Screw Vectra Self Drilling | | N/A: | | | | 04.613 | | Variable Angle [id number] - | | Spine | | | | .516 | | [id number]: Qty: 2 on | | Cervic | | | | /50335 | | 01/19/2013 by Silviano Cabrera, | | al | | | | 516 / | | MD | | | | | | | + +------+--------+ +--------+--------+--------+ | Screw Vectra Self Drilling | | N/A: | | | | 04.613 | | Fixed Angle 4.0x14mm - | | Spine | | | | .714 | | [id number]: Qty: 2 on | | Cervic | | | | /79814 | | 01/19/2013 by Silviano Cabrera, | | al | | | | 714 / | | MD | | | | | | | + +------+--------+ +--------+--------+--------+ | Plate Vectra Cervical 30mm - | | N/A: | | | | 04.613 | | [id number]: Qty: 1 on | | Spine | | | | .130 | | 01/19/2013 by Silviano Cabrera, | | Cervic | | | | /67058 | | MD | | al | | | | 130 / | + +------+--------+ +--------+--------+--------+ | Allograft Putty Freeze Dried | | N/A: | | | 10/20/ | [id number] | | Dbx 2.5ml - | | Spine | | | 2014 | | | [id number]: | | Cervic | | | | /47568 | | Qty: 1 on 04/06/2013 by | | al | | | | [id number] | | Silviano Cabrera MD | | | | | | 124548 | | | | | | | | 3 / | + +------+--------+ +--------+--------+--------+ | Screw Vuepoint Post Cerv | | N/A: | | | | 322429 | | 3.5x12mm - [id number]: | | Spine | | | | 2 | | Qty: 3 on 04/06/2013 by | | Cervic | | | | /18729 | | Silviano Cabrera MD | | al | | | | 12 / | + +------+--------+ +--------+--------+--------+ | Screw Vuepoint Post Cerv | | N/A: | | | | 670694 | | 3.5x14mm - [id number]: | | Spine | | | | 4 | | Qty: 1 on 04/06/2013 by | | Cervic | | | | /44192 | | Silviano Cabrera MD | | al | | | | 14 / | + +------+--------+ +--------+--------+--------+ | Srini Vuepoint 3.5x60mm - | | N/A: | | | | 400799 | | [id number]: Qty: 1 on | | Spine | | | | 0 | | 04/06/2013 by Silviano Cabrera, | | Cervic | | | | /54790 | | MD | | al | | | | 60 / | + +------+--------+ +--------+--------+--------+ | Screw Vuepoint Post Cerv Set | | N/A: | | | | [id number] | | Tulip & Hook - | | Spine | | | | 0 | | [id number]: Qty: 4 on | | Cervic | | | | /85930 | | 04/06/2013 by Silviano Cabrera, | | al | | | | 00 / | | MD | | | | | | | + +------+--------+ +--------+--------+--------+ | Allograft Osteocell 10cc | | | | | 08/25/ | 206933 | | [id number] - | | | | | 2017 | 0 | | [id number]: Qty: 1 | | | | | | /95306 | | on 04/06/2013 | | | | | | 1542 / | + +------+--------+ +--------+--------+--------+ | Allograft Putty Freeze Dried | | N/A: | | | 11/10/ | [id number] | | Demineralized Bone Matrix Dbx | | Spine | | | 2014 | | | 1ml - | | Cervic | | | | /90650 | | [id number]: | | al | | | | [id number] | | Qty: 1 on 04/06/2013 by | | | | | | [id number] | | Silviano Cabrera MD | | | | | | 1 / | + +------+--------+ +--------+--------+--------+ | Graft Sponge Kit Bone Infuse | | | MEDTRONIC | | | 468549 | | Medium 56ml - | | | | | | 0 / | | [id number]: Qty: 1 on | | | | | | /[id number] | | 03/29/2014 by Silviano Cabrera, | | | | | | 05AA6 | | | | | | | | | + +------+--------+ +--------+--------+--------+ | Triad Alif Allograft | | | NUVASIVE | | 08/02/ | 007898 | | [id number]: Qty: 1 on | | | | | 2018 | 4 | | 03/29/2014 by Silviano Cabrera, | | | | | | /53350 | | MD | | | | | | 0-065 | | | | | | | | / | + +------+--------+ +--------+--------+--------+ | Screw Brigade 5.5x25mm - | | | NUVASIVE | | | [id number] | | [id number]: Qty: 2 on | | | | | | / | | 03/29/2014 by Silviano Cabrera, | | | | | | | | MD | | | | | | | + +------+--------+ +--------+--------+--------+ | Screw Brigade 5.5x30mm - | | | NUVASIVE | | | 220869 | | [id number]: Qty: 4 on | | | | | | 0 / / | | 03/29/2014 by Silviano Cabrera, | | | | | | | | MD | | | | | | | + +------+--------+ +--------+--------+--------+ | Evelyne Batista Allograft | | | NUVASIVE | | 07/14/ | [id number] | | [id number] - | | | | | 2012 | 2 / / | | [id number]: Qty: 1 on | | | | | | | | 03/29/2014 by Silviano Cabrera, | | | | | | | | MD | | | | | | | + +------+--------+ +--------+--------+--------+ | Svetlana Iraheta 5.5x35mm - | | | NUVASIVE | | | 672036 | | [id number]: Qty: 2 on | | | | | | / | | 03/29/2014 by Silviano Cabrera, | | | | | | | | MD | | | | | | | + +------+--------+ +--------+--------+--------+ | Allograft Block Extra Large | | N/A: | NUVASIVE | | 09/27/ | [id number] | | Formagraft Large - | | Back | | | 2018 | / | | [id number]: Qty: 1 on | | | | | | /FG-14 | | 03/29/2014 by Silviano Cabrera, | | | | | | 13 | | MD | | | | | | | + +------+--------+ +--------+--------+--------+ | Graft Sponge Kit Bone Infuse | | N/A: | MEDTRONIC | | 08/27/ | 179509 | | Large 8ml - | | Back | | | 2015 | 0 / | | [id number]: Qty: 1 on | | | | | | /M1112 | | 03/29/2014 by Silviano Cabrera, | | | | | | 06AAY | | | | | | | | | + +------+--------+ +--------+--------+--------+ | Allograft Freeze Dried | | N/A: | LIFENET | | 11/13/ | [id number] | | Demineralized Cancellous Mix | | Spine | HEALTH | | 2016 | T | | Ic Graft Chamber 15cc - | | Lumbar | | | | /38385 | | [id number]: Qty: | | | | | | 57-303 | | 1 on 03/31/2014 by Rick, | | | | | | 1 / | | MD Silviano | | | | | | | + +------+--------+ +--------+--------+--------+ | Graft Sponge Kit Bone Infuse | | N/A: | MEDTRONIC | | 04/01/ | [id number] | | Medium 56ml - | | Spine | | | 2014 | 0 | | [id number]: Qty: 1 | | Lumbar | | | | /[id number] | | on 03/31/2014 by Rick, | | | | | | 05AAW | | MD Silviano | | | | | | / | + +------+--------+ +--------+--------+--------+ | Allograft Freeze Dried | | N/A: | LIFENET | | 11/01/ | [id number] | | Demineralized Cancellous Mix | | Spine | HEALTH | | 2016 | T | | Ic Graft Chamber 15cc - | | Lumbar | | | | /42105 | | [id number]: Qty: | | | | | | 37-301 | | 1 on 03/31/2014 by Rick, | | | | | | 1 / | | MD Silviano | | | | | | | + +------+--------+ +--------+--------+--------+ | Screw Precept Shank Mod | | N/A: | NUVASIVE | | | [id number] | | 7.5x50mm - [id number]: | | Spine | | | | 0 / / | | Qty: 4 on 03/31/2014 by | | Lumbar | | | | | | Silviano Cabrera MD | | | | | | | + +------+--------+ +--------+--------+--------+ | Screw Precept Shank Mod | | N/A: | NUVASIVE | | | 140002 | | 6.5x50mm - [id number]: | | Spine | | | | 0 / / | | Qty: 2 on 03/31/2014 by | | Lumbar | | | | | | Silviano Cabrera MD | | | | | | | + +------+--------+ +--------+--------+--------+ | Screw Locking For 6.25mm Srini | | N/A: | NUVASIVE | | | [id number] | | - [id number]: Qty: 6 | | Spine | | | | 1 / / | | on 03/31/2014 by Rick, | | Lumbar | | | | | | MD Silviano | | | | | | | + +------+--------+ +--------+--------+--------+ | Screw Tulip For 6.25mm Srini - | | N/A: | NUVASIVE | | | [id number] | | [id number]: Qty: 6 on | | Spine | | | | 2 / / | | 03/31/2014 by Silviano Cabrera, | | Lumbar | | | | | | | | | | | | | + +------+--------+ +--------+--------+--------+ | Allograft Freeze Dried | | N/A: | LIFENET | | 11/08/ | [id number] | | Demineralized Cancellous Mix | | Spine | HEALTH | | 2017 | T | | Ic Graft Chamber 15cc - | | Lumbar | | | | /[id number] | | [id number]: Qty: | | | | | | 98-303 | | 1 on 03/31/2014 by Rick, | | | | | | 9 / | | MD Silviano | | | | | | | + +------+--------+ +--------+--------+--------+ | Allograft Freeze Dried | | N/A: | LIFENET | | 08/16/ | [id number] | | Demineralized Cancellous Mix | | Spine | HEALTH | | 2016 | T | | Ic Graft Chamber 10cc - | | Lumbar | | | | /85072 | | [id number]: Qty: | | | | | | 22-301 | | 1 on 03/31/2014 by Rick, | | | | | | 3 / | | MD Silviano | | | | | | | + +------+--------+ +--------+--------+--------+ | Allograft Freeze Dried | | N/A: | LIFENET | | 07/13/ | [id number] | | Demineralized Cancellous Mix | | Spine | HEALTH | | 2016 | T | | Ic Graft Chamber 5cc - | | Lumbar | | | | /23962 | | [id number]: Qty: | | | | | | 40-301 | | 1 on 03/31/2014 by Rick, | | | | | | 1 / | | MD Silviano | | | | | | | + +------+--------+ +--------+--------+--------+ | Srini Spherx Dual Ball Ti Dbr | | N/A: | NUVASIVE | | | [id number] | | Ii 42.5mm - | | Spine | | | | 5 / / | | [id number]: Qty: 2 on | | Lumbar | | | | | | 03/31/2014 by Silviano Cabrera, | | | | | | | | | | | | | | | + +------+--------+ +--------+--------+--------+ Results Not on filefrom Last 3 Months Insurance + +--------+ +--------+-------+ + | Payer | Benefi | Subscriber | Type | Phone | Address | | | t Plan | ID | | | | | | / | | | | | | | Group | | | | | + +--------+ +--------+-------+ + | [place] - PREMI[place] | [place] | [id number] | Medica | | | | FAMILY | [place] | | re | | | | | RE | | | | | | | FAMILY | | | | | + +--------+ +--------+-------+ + | MEDICAID | [place] | [id number] | | | [address] | | | [place] | | | | [place] | | | [place] | | | | [address] | | | [employer] | | | | | + +--------+ [...] [birth year] | Home: | [address] | | [address] | | [phone] | [phone] | [place] | | | jana | | | [phone] | [phone] | + +--------+ +--------+ + +
--- OUTSIDE RECORDS SUMMARY | ~2018-01-25 | XMS | Encounter Summary ---
Demographics + + + | Address | [address] | | | [place] [address] | + + + | Home Phone | | + + + | Preferred Language | Unknown | + + + | Marital Status | | + + + | Yazidi Affiliation | Unknown | + + + | Race | Unknown | + + + | Ethnic Group | Unknown | + + + Author + + + | Author | [facility] | | | and [place] | + + + | Organization | [facility] | | | and [place] [...] [place], [place] | | | | | [address] | | + + + + + | Mirza Bee | ECON | [address] | | | | | [place], [place] | | | | | [address] | | + + + + + Care Team Providers + +------+ + | Care Mapping Specialist Name | Role | Phone | + +------+ + | Davis Ivan MD | PCP | | + +------+ + Encounter Details +--------+ + + + + | Date | Type | Department | Care Team | Description | +--------+ + + + + | 12/16/ | Hospital | [facility] | Giuliano Padilla, | Left hand pain | | 2018 | Encounter | [facility] | MD [address] [facility] | | | | | [address] [place] | [place] | | | | | [place] | [address] | | | | | [address] | | | | | | [phone] | | | +--------+ + + + [...]
--- OUTSIDE RECORDS SUMMARY | ~2018-01-25 | XMS | Encounter Summary ---
Demographics + + + | Address | [address] | | | [place] [address] | + + + | Home Phone | | + + + | Preferred Language | Unknown | + + + | Marital Status | | + + + | Presybeterian Affiliation | Unknown | + + + | Race | Unknown | + + + | Ethnic Group | Unknown | + + + Author + + + | Author | [facility] | | | and [place] | + + + | Organization | [facility] | | | and [place] | + + + | Address | Unknown | + + + | Phone | Unavailable | + + + Support + + + + + | Name | Relationship | Address | Phone | + + + + + | Jewel Azevedo | ECON | [address] | | | | | [place], [place] | | | | | [address] | | + + + + + | Mirza Bee | ECON | [address] | | | | | [place] | | | | | [address] | | + + + + + Care Team Providers + +------+ + | Care Digital Commentator Name | Role | Phone | + [...] | | | | | | | RI REPAIR | | | | | | [...] 10/27/ | Anesthesia | [facility] | Sarita Rankin | | | 2018 | Event | [facility] | Festus ALFARO MD [address] | | | | | [address] | [address] [place] | | | | | [place], [place] | [place] [address] | | | | | [address] | | | | | | | [...] + + | 05 | 1 | An Checkout | Pre-use anesthesia machine/equipment checkout. | | /2 | 0 | | | | 9/ | 1 | | | | 20 | 1 | | | | 18 | | [...] +----+---+ + + | | 1 | [place] | | | | 0 | 43-degrees [...] +----+---+ + + | | 1 | [place] off | | | | 1 | [...] Removal | +--------+ + + + | Incisi | 07/28/14; 1620; Left:; chest | 07/28/141620 by | | | on | | Primitivo Dubose RN | | +--------+ + + + | Implan | 07/28/14; 1624; other (see | 07/28/141623 by | | | t | comments); topical anesthetic | Primitivo Dubose RN | | | Port/S | spray applied; tolerated well; | | | | sharron | flush only | | | +--------+ + + + | Incisi | 03/20/15; 1325; Right:; arm | 03/20/15 1325 by | | | on | | Cece Bhatti RN | | +--------+ + + + | Periph | 10/27/17; 0933; Left; Hand; | 10/27/17 0933 by | 10/27/17 1400 by | | eral | hosh-nfl-kjnpgr catheter system; | Yenifer Shelton RN | [...] | | +--------+ + + + | Incisi | 10/27/17; 1035; Right; hand; | 10/27/17 1035 by | 10/27/17 1405 by | | on | healing within expectations; | Nathalie Savage RN | Harriet Ellis RN | | | 10/27/17; 1405 | | | +--------+ + + + in this encounter Social History + + [...] Not on fileas of this encounter Results Anesthesia Airway Note (10/27/2017 1030) + + [...] Performing provider: SARITA RANKIN | | | II Electronically Signed by: Sarita Rankin II, | [...] 10/27/2017 10:30 | | | + + in this encounter Visit Diagnoses Not on filein this encounter Administered Medications + +--------+ +------+------+------+ | Medication Order | MAR | Action | Dose | Rate | Site | | | Action | Date | | | | + +--------+ +------+------+------+ | ceFAZolin (ANCEF, KEFZOL) 100 | Given | | 1 g | | | | mg/mL IV syringe 1 g 1 g, | | 8 10:19 | | | | | Intravenous, Administer over 30 | | PDT | | | | | Minutes, Prior to Incision, | | | | | | | Starting 10/27/17 at 0343, For | | | | | | | 1 dose, administer within 1 hour | | | | | | | of incision | | | | | | + +--------+ +------+------+------+ +---+---+ | | | +---+---+ + +-------+ +-------+---+---+ | dexamethasone (PF) 10 mg/mL | Given | | 10 mg | | | | injection Intravenous, PRN, | | 8 10:18 | | | | | Starting 10/27/17 at 1018, | | PDT | | | | | Anesthesia Intra-op | | | | | | + +-------+ +-------+---+---+ +---+---+ | | | +---+---+ + +-------+ +--------+---+---+ | dexmedetomidine (PRECEDEX) in | Given | | 30 mcg | | | | sodium chloride bolus infusion | | 8 10:18 | | | | | Intravenous, PRN, Starting Tue | | PDT | | | | | 10/27/17 at 1018, Anesthesia | | | | | | | Intra-op | | | | | | + +-------+ +--------+---+---+ +---+---+ | | | +---+---+ + +---------+ +---+---+---+ | lactated ringers (LR) infusion | New Bag | | | | | | at 10-100 mL/hr, Intravenous, | | 8 10:18 | | | | | CONTINUOUS, Starting 10/27/17 | | PDT | | | | | at 0915, TKO. | | | | | | + +---------+ +---+---+---+ +---+---+ | | | +---+---+ + +-------+ +-------+---+---+ | lidocaine (PF) 1% injection | Given | | 50 mg | | | | Intravenous, PRN, Starting Tue | | 8 10:18 | | | | | 10/27/17 at 1018, Anesthesia | | PDT | | | | | Intra-op | | | | | | + +-------+ +-------+---+---+ +---+---+ | | | +---+---+ + +-------+ +-------+---+---+ | propofol (DIPRIVAN) injection | Given | | 20 mg | | | | Intravenous, PRN, Starting Tue | | 8 10:20 | | | | | 10/27/17 at 1018, Anesthesia | | PDT | | | | | Intra-op | | | | | | + +-------+ +-------+---+---+ +-------+ +-------+---+---+ | Given | | 20 mg | | | | | 8 10:21 | | | | | | PDT | | | | +-------+ +-------+---+---+ | Given | | 40 mg | | | | | 8 10:22 | | | | | | PDT | | | | +-------+ +-------+---+---+ +---+---+ | | | +---+---+ + +---------+ + +-------+---+ | propofol (DIPRIVAN) injection | New Bag | | 200 | 71.4 | | | Intravenous, CONTINUOUS PRN, | | 8 10:18 | mcg/kg/m | mL/hr | | | Starting [place] 10/27/17 at 1018, | | PDT | in | | | | Anesthesia Intra-op | | | | | | + +---------+ + +-------+---+ +---+---+ | | | +---+---+ in this encounter"
--- OUTSIDE RECORDS SUMMARY | ~2018-01-25 | XMS | Encounter Summary ---
Demographics + + + | Address | [address] | | | [place] [address] | + + + | Home Phone [...] | Author | [facility] | | | and [place] | + + + | Organization | [facility] | | | and [place] | [...] [place], [place] | | | | | [address] | | + + + + + | Mirza Bee | ECON | [address] | | | | [place] | | | | | [address] | | + + + + + Care Team Providers + +------+ + | Care Airfield Engineer Officer Name | Role | Phone | [...] | | | | pulmonary | [facility] | [address] | | | | | disease, | [address] | [place] | | | | | unspecified | [place], | [place] | | | | | ([facility]) | [place] | [address] Phone: | | | | | Procedures | [address] | [phone] | | | | | FU | Phone: | Fax: | | | | | | [phone] | [phone] | | | | | | Fax: | | | | | | | [phone] | | + +--------+ + + + + Encounter Details +--------+---------+ + + + | Date | Type | Department | Care Team | Description | +--------+---------+ + + + | 11/19/ | Office | [facility] | Gurmeet Vargas | Chronic obstructive | | 2018 | Visit | PULMONARY [address] | MD [address] | bronchitis (HCC) | | | | [place], | [place] | (Primary Dx); | | | | [place] [address] | [place] [address] | History of lung | | | | [phone] | [phone] | cancer; Chronic | | | | [...] stayed in the hospital 11 days at [facility] in [place] in June 2017, she says. After dave [...] She tells me she sees him at [facility], so it is not in our medical [...]
--- OUTSIDE RECORDS SUMMARY | ~2018-01-25 | XMS | Encounter Summary ---
Demographics + + + | Address | [address] | | | [place] [address] | + + + | Home Phone [...] Author | [facility] | | | and Kirkana | + + + | Organization | [facility] | | | and Kirkana [...] [place], [place] | | | | | [address] | | + + + + + | Mirza Bee | ECON | [address] | | | | [place] | | | | | [address] | | + + + + + Care Team Providers + +------+ + | Care Control Director Name | Role | Phone | [...] | | | | | [address] | | | | | | [place], [place] | | | | | | [address] | | | | | | [phone] | | | +--------+ + + + [...]
--- OUTSIDE RECORDS SUMMARY | ~2018-01-25 | XMS | Clinical Summary ---
Demographics + + + | Address | [address] | | | [place] [address] | + + + | Home Phone | | + + + | Preferred Language | Unknown | + + + | Marital Status | | + + + | Baptist Affiliation | Unknown | + + + | Race | Unknown | + + + | Ethnic Group | Unknown | + + + Author + + + | Author | [employer] | + + + | Organization | [facility] [employer] | + + + | Address | Unknown | + + + | Phone | Unavailable | + + + Support + + +---------+ + | Name | Relationship | Address | Phone | + + +---------+ + | Mirza Bee | ECON | Unknown | | + + +---------+ + Care Team Providers + +------+ + | Care Salesforce Administrator Name | Role | Phone | [...] | | | | | Place [place] | | | | | | [address] | | | | | | | | +--------+---------+ + + + | 04/08/ | Office | | Santosh Sumner, | | | 2017 | Visit | | [address] | | | | | | [address] | | | | | | [place] [address] | | | | | | [phone] | | | | | | | [...] | N/A: | | | 08/20/ | 286372 | | Dbx 2.5ml - | | Spine | | | 2014 | | | [id number]: | | Cervic | | | | /72250 | | Qty: 1 on 01/19/2013 by | | al | | | | 579005 | | Silviano Cabrera MD | | | | | | [id number] | | | | | | | | 8 / | + +------+--------+ +--------+--------+--------+ | Cage Triad Allograft | | N/A: | | | 08/16/ | [id number] | | [id number] | | Spine | | | 2018 | 7 | | [id number]: Qty: 1 | | Cervic | | | | /[id number] | | on 01/19/2013 by Tim Cabrera | | | | 8-185 | | MD Silviano | | | | | | / | + +------+--------+ +--------+--------+--------+ | Cage Triad Allograft 6mm - | | N/A: | | | 06/23/ | [id number] | | [id number]: Qty: 1 | | Spine | | | 2018 | 6 | | on 01/19/2013 by Rick, | | Cervic | | | | /32672 | | MD Silviano | | al | | | | 0-206 | | | | | | | | / | + +------+--------+ +--------+--------+--------+ | Screw Vectra Self Drilling | | N/A: | | | | 04.613 | | Variable Angle 4.0x14mm - | | Spine | | | | .514 | | [id number]: Qty: 2 on | | Cervic | | | | /43924 | | 01/19/2013 by Silviano Cabrera, | | al | | | | 514 / | | | | | | | | | + +------+--------+ +--------+--------+--------+ | Screw Vectra Self Drilling | | N/A: | | | | 04.613 | | Variable Angle [id number] - | | Spine | | | | .516 | | [id number]: Qty: 2 on | | Cervic | | | | /14456 | | 01/19/2013 by Silviano Cabrera, | | al | | | | 516 / | | MD | | | | | | | + +------+--------+ +--------+--------+--------+ | Screw Vectra Self Drilling | | N/A: | | | | 04.613 | | Fixed Angle 4.0x14mm - | | Spine | | | | .714 | | [id number]: Qty: 2 on | | Cervic | | | | /26150 | | 01/19/2013 by Silviano Cabrera, | | al | | | | 714 / | | MD | | | | | | | + +------+--------+ +--------+--------+--------+ | Plate Vectra Cervical 30mm - | | N/A: | | | | 04.613 | | [id number]: Qty: 1 on | | Spine | | | | .130 | | 01/19/2013 by Silviano Cabrera, | | Cervic | | | | /09430 | | MD | | al | | | | 130 / | + +------+--------+ +--------+--------+--------+ | Allograft Putty Freeze Dried | | N/A: | | | 10/20/ | [id number] | | Dbx 2.5ml - | | Spine | | | 2014 | | | [id number]: | | Cervic | | | | /21021 | | Qty: 1 on 04/06/2013 by | | al | | | | 645976 | | Silviano Cabrera MD | | | | | | 199329 | | | | | | | | 3 / | + +------+--------+ +--------+--------+--------+ | Screw Vuepoint Post Cerv | | N/A: | | | | 565768 | | 3.5x12mm - [id number]: | | Spine | | | | 2 | | Qty: 3 on 04/06/2013 by | | Cervic | | | | /77132 | | Silviano Cabrera MD | | al | | | | 12 / | + +------+--------+ +--------+--------+--------+ | Screw Vuepoint Post Cerv | | N/A: | | | | 358303 | | 3.5x14mm - [id number]: | | Spine | | | | 4 | | Qty: 1 on 04/06/2013 by | | Cervic | | | | /56103 | | Silviano Cabrera MD | | al | | | | 14 / | + +------+--------+ +--------+--------+--------+ | Srini Vuepoint 3.5x60mm - | | N/A: | | | | 868317 | | [id number]: Qty: 1 on | | Spine | | | | 0 | | 04/06/2013 by Silviano Cabrera, | | Cervic | | | | /53431 | | MD | | al | | | | 60 / | + +------+--------+ +--------+--------+--------+ | Screw Vuepoint Post Cerv Set | | N/A: | | | | 434175 | | Tulip & Hook - | | Spine | | | | 0 | | [id number]: Qty: 4 on | | Cervic | | | | /69889 | | 04/06/2013 by Silviano Cabrera, | | al | | | | 00 / | | MD | | | | | | | + +------+--------+ +--------+--------+--------+ | Allograft Osteocell 10cc | | | | | 08/25/ | [id number] | | [id number] - | | | | | 2017 | 0 | | [id number]: Qty: 1 | | | | | | /13274 | | on 04/06/2013 | | | | | | 1542 / | + +------+--------+ +--------+--------+--------+ | Allograft Putty Freeze Dried | | N/A: | | | 11/10/ | [id number] | | Demineralized Bone Matrix Dbx | | Spine | | | 2014 | | | 1ml - | | Cervic | | | | /02595 | | [id number]: | | al | | | | [id number] | | Qty: 1 on 04/06/2013 by | | | | | | 136830 | | Silviano Cabrera MD | | | | | | 1 / | + +------+--------+ +--------+--------+--------+ | Graft Sponge Kit Bone Infuse | | | MEDTRONIC | | | 947634 | | Medium 56ml - | | | | | | 0 / | | [id number]: Qty: 1 on | | | | | | /[id number] | | 03/29/2014 by Silviano Cabrera, | | | | | | [id number] | | | | | | | | | + +------+--------+ +--------+--------+--------+ | Triad Alif Allograft | | | NUVASIVE | | 08/02/ | 299647 | | [id number]: Qty: 1 on | | | | | 2018 | 4 | | 03/29/2014 by Silviano Cabrera, | | | | | | /04136 | | MD | | | | | | 0-065 | | | | | | | | / | + +------+--------+ +--------+--------+--------+ | Screw Brigade 5.5x25mm - | | | NUVASIVE | | | 156218 | | [id number]: Qty: 2 on | | | | | | / | | 03/29/2014 by Silviano Cabrera, | | | | | | | | MD | | | | | | | + +------+--------+ +--------+--------+--------+ | Screw Brigade 5.5x30mm - | | | NUVASIVE | | | 170634 | | [id number]: Qty: 4 on | | | | | | 0 / / | | 03/29/2014 by Silviano Cabrera, | | | | | | | | MD | | | | | | | + +------+--------+ +--------+--------+--------+ | Evelyne Batista Allograft | | | NUVASIVE | | 07/14/ | [id number] | | [id number] - | | | | | 2012 | 2 / / | | [id number]: Qty: 1 on | | | | | | | | 03/29/2014 by Silviano Cabrera, | | | | | | | | MD | | | | | | | + +------+--------+ +--------+--------+--------+ | Svetlana Iraheta 5.5x35mm - | | | NUVASIVE | | | 129442 | | [id number]: Qty: 2 on | | | | | | / | | 03/29/2014 by Silviano Cabrera, | | | | | | | | MD | | | | | | | + +------+--------+ +--------+--------+--------+ | Allograft Block Extra Large | | N/A: | NUVASIVE | | 09/27/ | [id number] | | Formagraft Large - | | Back | | | 2018 | / | | [id number]: Qty: 1 on | | | | | | /FG-14 | | 03/29/2014 by Silviano Cabrera, | | | | | | 13 | | MD | | | | | | | + +------+--------+ +--------+--------+--------+ | Graft Sponge Kit Bone Infuse | | N/A: | MEDTRONIC | | 08/27/ | [id number] | | Large 8ml - | | Back | | | 2015 | 0 / | | [id number]: Qty: 1 on | | | | | | /[id number] | | 03/29/2014 by Silviano Cabrera, | | | | | | [id number] | | | | | | | | | + +------+--------+ +--------+--------+--------+ | Allograft Freeze Dried | | N/A: | LIFENET | | 11/13/ | [id number] | | Demineralized Cancellous Mix | | Spine | HEALTH | | 2016 | T | | Ic Graft Chamber 15cc - | | Lumbar | | | | /[id number] | | [id number]: Qty: | | | | | | 57-303 | | 1 on 03/31/2014 by Rick, | | | | | | 1 / | | MD Silviano | | | | | | | + +------+--------+ +--------+--------+--------+ | Graft Sponge Kit Bone Infuse | | N/A: | MEDTRONIC | | 04/01/ | [id number] | | Medium 56ml - | | Spine | | | 2014 | 0 | | [id number]: Qty: 1 | | Lumbar | | | | /[id number] | | on 03/31/2014 by Rick, | | | | | | 05AAW | | MD Silviano | | | | | | / | + +------+--------+ +--------+--------+--------+ | Allograft Freeze Dried | | N/A: | LIFENET | | 11/01/ | [id number] | | Demineralized Cancellous Mix | | Spine | HEALTH | | 2016 | T | | Ic Graft Chamber 15cc - | | Lumbar | | | | /55282 | | [id number]: Qty: | | | | | | 37-301 | | 1 on 03/31/2014 by Rick, | | | | | | 1 / | | MD Silviano | | | | | | | + +------+--------+ +--------+--------+--------+ | Screw Precept Shank Mod | | N/A: | NUVASIVE | | | [id number] | | 7.5x50mm - [id number]: | | Spine | | | | 0 / / | | Qty: 4 on 03/31/2014 by | | Lumbar | | | | | | Silviano Cabrera MD | | | | | | | + +------+--------+ +--------+--------+--------+ | Screw Precept Shank Mod | | N/A: | NUVASIVE | | | [id number] | | 6.5x50mm - [id number]: | | Spine | | | | 0 / / | | Qty: 2 on 03/31/2014 by | | Lumbar | | | | | | Silviano Cabrera MD | | | | | | | + +------+--------+ +--------+--------+--------+ | Screw Locking For 6.25mm Srini | | N/A: | NUVASIVE | | | [id number] | | - [id number]: Qty: 6 | | Spine | | | | 1 / / | | on 03/31/2014 by Rick, | | Lumbar | | | | | | MD Silviano | | | | | | | + +------+--------+ +--------+--------+--------+ | Screw Tulip For 6.25mm Srini - | | N/A: | NUVASIVE | | | [id number] | | [id number]: Qty: 6 on | | Spine | | | | 2 / / | | 03/31/2014 by Silviano Cabrera, | | Lumbar | | | | | | | | | | | | | + +------+--------+ +--------+--------+--------+ | Allograft Freeze Dried | | N/A: | LIFENET | | 11/08/ | [id number] | | Demineralized Cancellous Mix | | Spine | HEALTH | | 2017 | T | | Ic Graft Chamber 15cc - | | Lumbar | | | | /68437 | | [id number]: Qty: | | | | | | 98-303 | | 1 on 03/31/2014 by Rick, | | | | | | 9 / | | MD Silviano | | | | | | | + +------+--------+ +--------+--------+--------+ | Allograft Freeze Dried | | N/A: | LIFENET | | 08/16/ | [id number] | | Demineralized Cancellous Mix | | Spine | HEALTH | | 2016 | T | | Ic Graft Chamber 10cc - | | Lumbar | | | | /52910 | | [id number]: Qty: | | | | | | 22-301 | | 1 on 03/31/2014 by Rick, | | | | | | 3 / | | MD Silviano | | | | | | | + +------+--------+ +--------+--------+--------+ | Allograft Freeze Dried | | N/A: | LIFENET | | 07/13/ | [id number] | | Demineralized Cancellous Mix | | Spine | HEALTH | | 2016 | T | | Ic Graft Chamber 5cc - | | Lumbar | | | | /49310 | | [id number]: Qty: | | | | | | 40-301 | | 1 on 03/31/2014 by Rick, | | | | | | 1 / | | MD Silviano | | | | | | | + +------+--------+ +--------+--------+--------+ | Srini Spherx Dual Ball Ti Dbr | | N/A: | NUVASIVE | | | [id number] | | Ii 42.5mm - | | Spine | | | | 5 / / | | [id number]: Qty: 2 on | | Lumbar | [...] | [place] - PREMIERCARE | MA-PRE | [id number] | Medica | | | | FAMILY | MIER[place] | | re | | | | | RE | | | | | | | FAMILY | | | | | + +--------+ +--------+-------+ + | MEDICAID | EASTER | [id number] | | | [address] | | | N | | | | [place] | | | [place] | | | | [address] | | | KST OPERATOR | | | | | + +--------+ [...] | | joann/Anant | | 1945 | [phone] | [place] | | | jana | | | [phone] | [phone] | + +--------+ +--------+ + +
--- OUTSIDE RECORDS SUMMARY | ~2018-01-25 | XMS | Encounter Summary ---
Demographics + + + | Address | [address] | | | [place] [address] | + + + | Home Phone [...] + | Author | [facility] | | | and [place] | + + + | Organization | [facility] | | | and [place] [...] [place], [place] | | | | | [address] | | + + + + + | Mirza Bee | ECON | [address] | | | | | [place] | | | | | [address] | | + + + + + Care Team Providers + +------+ + | Care Pay Station Collector Name | Role | Phone | + [...] | | | | | | | [place] REPAIR | | | | | | [...] + + | 10/27/ | Hospital | [facility] | Giuliano Padilla, | Osteoarthritis of | | 2018 | Encounter | MED CTR OR INTRA OP | MD [address] | first | | | | [address] | [place], [place] | carpometacarpal | | | | [place], [place] | [address] | ([facility] joint of one | | | | [address] | | hand | | | | [phone] | | | +--------+ + + + [...] | Blood Pressure | 120/59 | 10/27/2017 1345 PDT | + + + + | Pulse | 75 | 10/27/2017 134 PDT | + + + + | Temperature | 37.4 C (99.3 F) | 10/27/2017 1120 PDT | + + + + | Respiratory Rate | 15 | 10/27/2017 1345 PDT | + + + + | Oxygen Saturation | 95% | 10/27/2017 1345 PDT | + + + + | Inhaled Oxygen | - | - | | Concentration | | | + + + + | Weight | 59.5 kg (131 lb 2.8 | 10/27/2017857 PDT | | | oz) | | + + + + | Height | 157.5 cm (5' 2") | 10/27/2017857 PDT | + + + + | Body Mass Index | 23.99 | 10/27/2017857 PDT | + + + + in this encounter Discharge Instructions Giuliano Padilla MD - 10/27/2017Ketim hand elevated and wiggle fingers as much as tolerated in this encounter Medications at Time of [...] by | 360 mL | 3 | 08/04/ | | | albuterol-ipratropiu | nebulization 4 [...] | | | | | type ([facility] | | | | | | + + + +---------+ + + | BREO ELLIPTA | Inhale 1 puff into | | 0 | // | | | 100-25 MCG/INH | the [...] 1 tablet by | | 0 | //20 | | | (EFFEXOR XR) 75 mg [...] | Take by mouth. 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) | + + Administered Medications + +--------+ +--------+------+------+ | Medication Order | MAR | Action | Dose | Rate | Site | | | Action | Date | | | | + +--------+ +--------+------+------+ | acetaminophen (TYLENOL) tablet | Given | | 975 mg | | | | 975 mg 975 mg (rounded from | | 8 9:20 | | | | | 1,000 mg), Oral, ONCE, Tue | | PDT | | | | | 10/27/17 at 0915, For 1 dose, | | | | | | | Pre-op | | | | | | + +--------+ +--------+------+------+ +---+---+ | | | +---+---+ + +-------+ +--------+---+---+ | albuterol 2.5 mg/3 mL nebulizer | Given | | 2.5 mg | | | | solution 2.5 mg 2.5 mg, | | 8 9:18 | | | | | Nebulization, ONCE PRN, Wheezing, | | PDT | | | | | Starting 10/27/17 at 0859, | | | | | | | For 1 dose, RT will administer. | | | | | | + [...] or COPD | | | or current smoking. | | + +---+ | | | [...] once | | | blood glucose > 70. | | + +---+ | | | + +---+ | fentaNYL (PF) injection 25-50 | | | mcg 25-50 mcg, Intravenous, | | | EVERY 15 MIN PRN, Pain, pain, | | | Starting 10/27/17 at 0859, Max | | | total dose 100 mcg. | | + +---+ | | | + +---+ + +-------+ +--------+---+---+ | fentaNYL (PF) injection 25-50 | Given | | 25 mcg | | | | mcg 25-50 mcg, Intravenous, | | 8 12:31 | | | | | EVERY 5 MIN PRN, Pain, Starting | | PDT | | | | [...] | | | | | | | ineffective. | | | | | | + +-------+ +--------+---+---+ +-------+ +--------+---+---+ | Given | | 25 mcg | | | | | 8 12:36 | | | | | | PDT | | | | +-------+ +--------+---+---+ | Given | | 25 mcg | | | | | 8 12:57 | | | | | | PDT | | | | +-------+ +--------+---+---+ +---+---+ | | | +---+---+ + +-------+ +--------+---+---+ | gabapentin (NEURONTIN) capsule | Given | | 600 mg | | | | 600 mg 600 mg, Oral, ONCE, Tue | | 8 9:20 | | | | | 10/27/17 at 0915, For 1 dose, | | PDT | | | | | Pre-op | | | | | | + +-------+ +--------+---+---+ +---+---+ | | | +---+---+ + +-------+ +---------+---+---+ | HYDROcodone-acetaminophen | Given | | 2 | | | | (NORCO) 5-325 mg per tablet 1-2 | | 8 13:44 | tablets | | | | tablet 1-2 tablet, Oral, EVERY 4 | | PDT | | | | | HOURS PRN, Pain, Starting Tue | | | | | | | 10/27/17 at 1313, Post-op/Phase II | | | | | | + +-------+ +---------+---+---+ +---+---+ | | | +---+---+ + +-------+ +---------+---+---+ | HYDROmorphone (DILAUDID) | Given | | 0.25 mg | | | | injection 0.2-0.5 mg 0.2-0.5 mg, | | 8 12:46 | | | | | Intravenous, EVERY 5 MIN PRN, | | PDT | | | | | Pain, Starting Thu10/27/17 at | | | | | | [...] | | | | | | | ineffective. | | | | | | + +-------+ +---------+---+---+ +-------+ +---------+---+---+ | Given | | 0.25 mg | | | | | 8 12:53 | | | | | | PDT | | | | +-------+ +---------+---+---+ [...] + +---+ | | | + +---+ in this encounter
--- OUTSIDE RECORDS SUMMARY | ~2018-01-25 | XMS | Clinical Summary ---
Demographics + + + | Address | [address] | | | [place] [address] | + + + | Home Phone [...] | Author | [facility] | | | and [place] | + + + | Organization | [facility] | | | and [place] | [...] [place] | | | | | [address] | | + + + + + | Mirza Bee | ECON | [address] | | | | | [place] | | | | | [address] | | + + + + + Care Team Providers + +------+ + | Care Manager Orange Name | Role | Phone | + [...] | | | | | | type ([facility]) | | | | | | | [...] biopsy by | | interventional radiology at [facility] of the right lung massshows | [...] at [facility] for | | consideration of [...] in August [address]. Admitted to | | [facility] on September 27, 2014 for right-sided chest | | pain secondary to acute bronchitis.10. CT chest [facility] on September 28, 2014 demonstrated persistent 32 mm x 26 mm | | x 27 mm Right Hilar Mass. Last Assessment & Plan: Stephanie | | returned to the [facility] on | | November 09, 2014 for follow up of her locally recurrent RIGHT Lung | | cancer. Interval history is notable for the fact that Thea was | | admitted to [facility] in [place], [place] for acute | | exacerbation of chronic bronchitis. During her hospitalization | | there, a chest CT was performed demonstrating a persistent 32 x | | 26 mm right hilar mass. These images were reviewed subsequently | | at the [facility] on their PACS system. Radiographic [...] persistent disease. PET/CT schedule | | at [facility] on December 21, 2014 with follow up at [facility] | | the following [...] | + + + | Rheumatoid arthritis(714.0) ([facility]) | 03/30/2013 | + + + + [...] carpometacarpal | | | | | | ([facility]) joint of one | | | | [...] | | Giuliano Padilla, | Right 1st [facility] | | 2017 | | | MD [...] | BARD ACCESS | | 03/20/ | 345283 | | [id number]: Qty: 1 on | | | SYSTEMS [...] | | | INC. | | | /30247 | | | | | | | [...] and carbon dioxide detection Performing provider: SARITA RAKNIN | | | ANGELINA Electronically Signed by: Sarita Rankin II, | | | MD Gracia | | | date/time: 10/27/2017 10:30 | | + + + + + | Procedure Note | + + | Sariat Rankin II, MD - 10/27/2017 1030 PDT [...] | [facility] [facility] | MODA | [id number] | Medica | | | | | HEALTH | | re | | | | | MDCR | | | | | + +--------+ +--------+ +---------+ | [employer] | MODA | [id number] | Medica | +- | | | [...] | 1945 | [phone] | [place] [address] | | | jana | | | [phone] | | + +--------+ +--------+ + +
--- OUTSIDE RECORDS SUMMARY | ~2018-01-25 | XMS | Encounter Summary ---
Demographics + + + | Address | [address] | | | [place] [address] | + + + | Home Phone [...] | Author | [facility] | | | and [place] | + + + | Organization | [facility] | | | and [...] [place], [place] | | | | | [address] | | + + + + + | Mirza Bee | ECON | [address] | | | | | [place] | | | | | [address] | | + + + + + Care Team Providers + +------+ + | Care Getter Welder Name | Role | Phone | + [...] | | | | | | | [place] REPAIR | | | | | | [...] | | | | | [address] | [address] [place] | | | | | [place], [place] | [place] [address] | | | | | [address] | | | | | | | [...] +----+---+ + + | | 1 | [place] | | | | 0 | 43-degrees [...] +----+---+ + + | | 1 | [place] off | | | | 1 | [...] by | | | on | | Ccee Bhatti RN | | +--------+ + + + | Periph | 10/27/17; 0933; Left; Hand; | 10/27/17 0933 by | 10/27/17 1400 by | | eral | ugeq-pqn-zbhczt catheter system; | Yenifer Shelton RN | [...]
--- OUTSIDE RECORDS SUMMARY | ~2018-01-25 | XMS | Encounter Summary ---
Demographics + + + | Address | [address] | | | [place] [address] | + + + | Home Phone [...] + | Author | [facility] | | | and [place] | + + + | Organization | [facility] | | | and [...] [place], [place] | | | | | [address] | | + + + + + | iMrza Bee | ECON | [address] | | | | | [place] | | | | | [address] | | + + + + + Care Team Providers + +------+ + | Care Sizer Hand Name | Role | Phone | [...] | | | | | | | [place] REPAIR | | | | | | [...] + + | 10/27/ | Hospital | [facility] | Giuliano Padilla, | Osteoarthritis of | | 2018 | Encounter | MED CTR OR INTRA OP | MD [address] | first | | | | [address] | [place], [place] | carpometacarpal | | | | [place], [place] | [address] | [place] one | | | | [address] | | hand | | | | [phone] | | | +--------+ + + + [...] | | | | | type ([facility]) | | | | | [...]
--- OUTSIDE RECORDS SUMMARY | ~2018-01-25 | XMS | Clinical Summary ---
Demographics + + + | Address | [address] | | | [place] [address] | + + + | Home Phone | | + + + | Preferred Language | Unknown | + + + | Marital Status | Single | + + + | Pentecostalism Affiliation [...] Team Providers + +------+ + | Care Electrical Test Engineer Name | Role | Phone | + +------+ + | Ayana Taylor MD | PP | | + +------+ + Source Comments KARISHMA is fully live on both [facility] Allergies Not on File Current [...] | | | | (FLU SHOT) | 8 | | | + + [...] | | | + +--------+ +--------+-------+---------+ | COPY LATHE OPERATOR MEDICAID | COPY LATHE OPERATOR | [id number] | Medica | | [...] | | al/Fam | | 1945 | [phone] | [place] [address] | | | jana | | | [phone] | | + +--------+ +--------+ + +"
--- OUTSIDE RECORDS SUMMARY | ~2018-01-25 | XMS | Encounter Summary ---
Demographics + + + | Address | [address] | | | [place] [address] | + + + | Home Phone [...] Author | [facility] | | | and [place] | + + + | Organization | [facility] | | | and [place] [...] [place], [place] | | | | | [address] | | + + + + + | Mirza Bee | ECON | [address] | | | | | [place] | | | | | [address] | | + + + + + Care Team Providers + +------+ + | Care Blowing Engineer Name | Role | Phone | [...] + + | 11/09/ | Office | [facility] | Giuliano Padilla, | Postop check | | 2018 | Visit | ORTHOPEDIC SURGERY | [address] | (Primary Dx) | | | | [address] [facility] | [place] | | | | | [place] | [address] | | | | | [address] | | | | | | [phone] | | | +--------+---------+ + + + [...]
--- OUTSIDE RECORDS SUMMARY | ~2018-01-25 | XMS | Clinical Summary ---
Demographics + + + | Address | [address] | | | [place] [address] | + + + | Home Phone | | + + + | Preferred Language | Unknown | + + + | Marital Status | | + + + | Caodaism Affiliation | Unknown | + + + | Race | Unknown | + + + | Ethnic Group | Unknown | + + + Author + + + | Author | [facility] | + + + | Organization | [facility] [facility] | + + + | Address | Unknown | + + + | Phone | Unavailable | + + + Support + + +---------+ + | Name | Relationship | Address | Phone | + + +---------+ + | Mirza Bee | ECON | Unknown | | + + +---------+ + Care Team Providers + +------+ + | Care Dobie Worker Name | Role | Phone | [...] | | | | | Place [place] | | | | | | [address] | | | | | | | | +--------+---------+ + + + | 04/08/ | Office | | Santosh Sumner, | | | 2017 | Visit | | [address] | | | | | | [address] | | | | | | [place] [address] | | | | | | [phone] | | | | | | | [...] | N/A: | | | 08/20/ | [id number] | | Dbx 2.5ml - | | Spine | | | 2014 | | | [id number]: | | Cervic | | | | /31245 | | Qty: 1 on 01/19/2013 by | | al | | | | [id number] | | Silviano Cabrera MD | | | | | | 174465 | | | | | | | | 8 / | + +------+--------+ +--------+--------+--------+ | Cage Triad Allograft | | N/A: | | | 08/16/ | [id number] | | [id number] | | Spine | | | 2018 | 7 | | [id number]: Qty: 1 | | Cervic | | | | /97567 | | on 01/19/2013 by Tim Cabrera | | | | 8-185 | | MD Silviano | | | | | | / | + +------+--------+ +--------+--------+--------+ | Cage Triad Allograft 6mm - | | N/A: | | | 06/23/ | [id number] | | [id number]: Qty: 1 | | Spine | | | 2018 | 6 | | on 01/19/2013 by Rick, | | Cervic | | | | /56413 | | MD Silviano | | al | | | | 0-206 | | | | | | | | / | + +------+--------+ +--------+--------+--------+ | Screw Vectra Self Drilling | | N/A: | | | | 04.613 | | Variable Angle 4.0x14mm - | | Spine | | | | .514 | | [id number]: Qty: 2 on | | Cervic | | | | /70928 | | 01/19/2013 by Silviano Cabrera, | | al | | | | 514 / | | | | | | | | | + +------+--------+ +--------+--------+--------+ | Screw Vectra Self Drilling | | N/A: | | | | 04.613 | | Variable Angle [id number] - | | Spine | | | | .516 | | [id number]: Qty: 2 on | | Cervic | | | | /16679 | | 01/19/2013 by Silviano Cabrera, | | al | | | | 516 / | | MD | | | | | | | + +------+--------+ +--------+--------+--------+ | Screw Vectra Self Drilling | | N/A: | | | | 04.613 | | Fixed Angle 4.0x14mm - | | Spine | | | | .714 | | [id number]: Qty: 2 on | | Cervic | | | | /89645 | | 01/19/2013 by Silviano Cabrera, | | al | | | | 714 / | | MD | | | | | | | + +------+--------+ +--------+--------+--------+ | Plate Vectra Cervical 30mm - | | N/A: | | | | 04.613 | | [id number]: Qty: 1 on | | Spine | | | | .130 | | 01/19/2013 by Silviano Cabrera, | | Cervic | | | | /41799 | | MD | | al | | | | 130 / | + +------+--------+ +--------+--------+--------+ | Allograft Putty Freeze Dried | | N/A: | | | 10/20/ | [id number] | | Dbx 2.5ml - | | Spine | | | 2014 | | | [id number]: | | Cervic | | | | /47827 | | Qty: 1 on 04/06/2013 by | | al | | | | 668621 | | Silviano Cabrera MD | | | | | | 052047 | | | | | | | | 3 / | + +------+--------+ +--------+--------+--------+ | Screw Vuepoint Post Cerv | | N/A: | | | | 143198 | | 3.5x12mm - [id number]: | | Spine | | | | 2 | | Qty: 3 on 04/06/2013 by | | Cervic | | | | /19328 | | Silviano Cabrera MD | | al | | | | 12 / | + +------+--------+ +--------+--------+--------+ | Screw Vuepoint Post Cerv | | N/A: | | | | 412547 | | 3.5x14mm - [id number]: | | Spine | | | | 4 | | Qty: 1 on 04/06/2013 by | | Cervic | | | | /37443 | | Silviano Cabrera MD | | al | | | | 14 / | + +------+--------+ +--------+--------+--------+ | Srini Vuepoint 3.5x60mm - | | N/A: | | | | 190064 | | [id number]: Qty: 1 on | | Spine | | | | 0 | | 04/06/2013 by Silviano Cabrera, | | Cervic | | | | /08647 | | MD | | al | | | | 60 / | + +------+--------+ +--------+--------+--------+ | Screw Vuepoint Post Cerv Set | | N/A: | | | | [id number] | | Tulip & Hook - | | Spine | | | | 0 | | [id number]: Qty: 4 on | | Cervic | | | | /99038 | | 04/06/2013 by Silviano Cabrera, | | al | | | | 00 / | | MD | | | | | | | + +------+--------+ +--------+--------+--------+ | Allograft Osteocell 10cc | | | | | 08/25/ | 739218 | | [id number] - | | | | | 2017 | 0 | | [id number]: Qty: 1 | | | | | | /07189 | | on 04/06/2013 | | | | | | 1542 / | + +------+--------+ +--------+--------+--------+ | Allograft Putty Freeze Dried | | N/A: | | | 11/10/ | [id number] | | Demineralized Bone Matrix Dbx | | Spine | | | 2014 | | | 1ml - | | Cervic | | | | /66763 | | [id number]: | | al | | | | [id number] | | Qty: 1 on 04/06/2013 by | | | | | | [id number] | | Silviano Cabrera MD | | | | | | 1 / | + +------+--------+ +--------+--------+--------+ | Graft Sponge Kit Bone Infuse | | | MEDTRONIC | | | 108051 | | Medium 56ml - | | | | | | 0 / | | [id number]: Qty: 1 on | | | | | | /[id number] | | 03/29/2014 by Silviano Cabrera, | | | | | | 05AA6 | | | | | | | | | + +------+--------+ +--------+--------+--------+ | Triad Alif Allograft | | | NUVASIVE | | 08/02/ | 943910 | | [id number]: Qty: 1 on | | | | | 2018 | 4 | | 03/29/2014 by Silviano Cabrera, | | | | | | /25644 | | MD | | | | | | 0-065 | | | | | | | | / | + +------+--------+ +--------+--------+--------+ | Screw Brigade 5.5x25mm - | | | NUVASIVE | | | 099849 | | [id number]: Qty: 2 on | | | | | | / | | 03/29/2014 by Silviano Cabrera, | | | | | | | | MD | | | | | | | + +------+--------+ +--------+--------+--------+ | Screw Brigade 5.5x30mm - | | | NUVASIVE | | | [id number] | | [id number]: Qty: 4 on | | | | | | 0 / / | | 03/29/2014 by Silviano Cabrera, | | | | | | | | MD | | | | | | | + +------+--------+ +--------+--------+--------+ | Evelyne Batista Allograft | | | NUVASIVE | | 07/14/ | 423051 | | [id number] - | | | | | 2012 | 2 / / | | [id number]: Qty: 1 on | | | | | | | | 03/29/2014 by Silviano Cabrera, | | | | | | | | MD | | | | | | | + +------+--------+ +--------+--------+--------+ | Svetlana Iraheta 5.5x35mm - | | | NUVASIVE | | | 991703 | | [id number]: Qty: 2 on | | | | | | / | | 03/29/2014 by Silviano Cabrera, | | | | | | | | MD | | | | | | | + +------+--------+ +--------+--------+--------+ | Allograft Block Extra Large | | N/A: | NUVASIVE | | 09/27/ | [id number] | | Formagraft Large - | | Back | | | 2018 | / | | [id number]: Qty: 1 on | | | | | | /FG-14 | | 03/29/2014 by Silviano Cabrera, | | | | | | 13 | | MD | | | | | | | + +------+--------+ +--------+--------+--------+ | Graft Sponge Kit Bone Infuse | | N/A: | MEDTRONIC | | 08/27/ | [id number] | | Large 8ml - | | Back | | | 2015 | 0 / | | [id number]: Qty: 1 on | | | | | | /M1112 | | 03/29/2014 by Silviano Cabrera, | | | | | | [id number] | | | | | | | | | + +------+--------+ +--------+--------+--------+ | Allograft Freeze Dried | | N/A: | LIFENET | | 11/13/ | [id number] | | Demineralized Cancellous Mix | | Spine | HEALTH | | 2016 | T | | Ic Graft Chamber 15cc - | | Lumbar | | | | /31844 | | [id number]: Qty: | | | | | | 57-303 | | 1 on 03/31/2014 by Rick, | | | | | | 1 / | | MD Silviano | | | | | | | + +------+--------+ +--------+--------+--------+ | Graft Sponge Kit Bone Infuse | | N/A: | MEDTRONIC | | 04/01/ | [id number] | | Medium 56ml - | | Spine | | | 2014 | 0 | | [id number]: Qty: 1 | | Lumbar | | | | /[id number] | | on 03/31/2014 by Rick, | | | | | | 05AAW | | MD Silviano | | | | | | / | + +------+--------+ +--------+--------+--------+ | Allograft Freeze Dried | | N/A: | LIFENET | | 11/01/ | [id number] | | Demineralized Cancellous Mix | | Spine | HEALTH | | 2016 | T | | Ic Graft Chamber 15cc - | | Lumbar | | | | /37093 | | [id number]: Qty: | | | | | | 37-301 | | 1 on 03/31/2014 by Rick, | | | | | | 1 / | | MD Silviano | | | | | | | + +------+--------+ +--------+--------+--------+ | Screw Precept Shank Mod | | N/A: | NUVASIVE | | | [id number] | | 7.5x50mm - [id number]: | | Spine | | | | 0 / / | | Qty: 4 on 03/31/2014 by | | Lumbar | | | | | | Silviano Cabrera MD | | | | | | | + +------+--------+ +--------+--------+--------+ | Screw Precept Shank Mod | | N/A: | NUVASIVE | | | [id number] | | 6.5x50mm - [id number]: | | Spine | | | | 0 / / | | Qty: 2 on 03/31/2014 by | | Lumbar | | | | | | Silviano Cabrera MD | | | | | | | + +------+--------+ +--------+--------+--------+ | Screw Locking For 6.25mm Srini | | N/A: | NUVASIVE | | | [id number] | | - [id number]: Qty: 6 | | Spine | | | | 1 / / | | on 03/31/2014 by Rick, | | Lumbar | | | | | | MD Silviano | | | | | | | + +------+--------+ +--------+--------+--------+ | Screw Tulip For 6.25mm Srini - | | N/A: | NUVASIVE | | | [id number] | | [id number]: Qty: 6 on | | Spine | | | | 2 / / | | 03/31/2014 by Silviano Cabrera, | | Lumbar | | | | | | | | | | | | | + +------+--------+ +--------+--------+--------+ | Allograft Freeze Dried | | N/A: | LIFENET | | 11/08/ | [id number] | | Demineralized Cancellous Mix | | Spine | HEALTH | | 2017 | T | | Ic Graft Chamber 15cc - | | Lumbar | | | | /17074 | | [id number]: Qty: | | | | | | 98-303 | | 1 on 03/31/2014 by Rick, | | | | | | 9 / | | MD Silviano | | | | | | | + +------+--------+ +--------+--------+--------+ | Allograft Freeze Dried | | N/A: | LIFENET | | 08/16/ | [id number] | | Demineralized Cancellous Mix | | Spine | HEALTH | | 2016 | T | | Ic Graft Chamber 10cc - | | Lumbar | | | | /64156 | | [id number]: Qty: | | | | | | 22-301 | | 1 on 03/31/2014 by Rick, | | | | | | 3 / | | MD Silviano | | | | | | | + +------+--------+ +--------+--------+--------+ | Allograft Freeze Dried | | N/A: | LIFENET | | 07/13/ | [id number] | | Demineralized Cancellous Mix | | Spine | HEALTH | | 2016 | T | | Ic Graft Chamber 5cc - | | Lumbar | | | | /29519 | | [id number]: Qty: | | | | | | 40-301 | | 1 on 03/31/2014 by Rick, | | | | | | 1 / | | MD Silviano | | | | | | | + +------+--------+ +--------+--------+--------+ | Srini Spherx Dual Ball Ti Dbr | | N/A: | NUVASIVE | | | [id number] | | Ii 42.5mm - | | Spine | | | | 5 / / | | [id number]: Qty: 2 on | | Lumbar | [...] | [place] - PREMIERCARE | MA-PRE | [id number] | Medica | | | | FAMILY | MIERCA | | re | | | | | RE | | | | | | | FAMILY | | | | | + +--------+ +--------+-------+ + | MEDICAID | EASTER | [id number] | | | [address] | | | N | | | | [place] | | | [place] | | | | [address] | | | CENTR[employer]UGAL SCREEN TENDER | | | | | + +--------+ [...] | | joann/Anant | | [phone] | [phone] | [place] | | | jnaa | | | [phone] | [address] | + +--------+ +--------+ + +
--- OUTSIDE RECORDS SUMMARY | ~2018-01-25 | XMS | Encounter Summary ---
Demographics + + + | Address | [address] | | | [place] [address] | + + + | Home Phone [...] | Author | [facility] | | | and [place] | + + + | Organization | [facility] | | | and [...] [place], [place] | | | | | [address] | | + + + + + | Mirza Bee | ECON | [address] | | | | | [place] | | | | | [address] | | + + + + + Care Team Providers + +------+ + | Care Pillar Man Name | Role | Phone | + [...] + + | 11/09/ | Office | [facility] | Giuliano Padilla, | Postop check | | 2018 | Visit | ORTHOPEDIC SURGERY | [address] | (Primary Dx) | | | | [address] [facility] | [place] | | | | | [place] | [address] | | | | | [address] | | | | | | [phone] | | | +--------+---------+ + + + [...]
--- OUTSIDE RECORDS SUMMARY | ~2018-01-25 | XMS | Encounter Summary ---
Demographics + + + | Address | [address] | | | [place] [address] | + + + | Home Phone [...] | Author | [facility] | | | and [place] | + + + | Organization | [facility] | | | and [place] | [...] [place], [place] | | | | | [address] | | + + + + + | Mirza Bee | ECON | [address] | | | | | [place], [place] | | | | | [address] | | + + + + + Care Team Providers + +------+ + | Care Therapy Director Name | Role | Phone | + +------+ + | Davis Ivan MD | PCP | | + +------+ + Encounter Details +--------+ + + + + | Date | Type | Department | Care Team | Description | +--------+ + + + + | 12/16/ | Hospital | [facility] | Giuliano Padilla, | Left hand pain | | 2018 | Encounter | MED CTR [facility] XRAY | MD [address] [facility] | | | | | [address] [place] | [place] | | | | | [place] | [address] | | | | | [address] | | | | | | [phone] | | | +--------+ + + + [...] | | | | type ([facility]) | | | | | | + [...]
--- OUTSIDE RECORDS SUMMARY | ~2018-01-25 | XMS | Encounter Summary ---
Demographics + + + | Address | [address] | | | [place] [address] | + + + | Home Phone | | + + + | Preferred Language | Unknown | + + + | Marital Status | | + + + | Jewish Affiliation | Unknown | + + + | Race | Unknown | + + + | Ethnic Group | Unknown | + + + Author + + + | Author | [facility] | | | and [place] | + + + | Organization | [facility] | | | and [place] [...] [place], [place] | | | | | [address] | | + + + + + | Mirza Bee | ECON | [address] | | | | | [place], [place] | | | | | [address] | | + + + + + Care Team Providers + +------+ + | Care Marketing Planning Manager Name | Role | Phone | [...] | Medicine | Sleep | Gurmeet | eDvin Toney | | | | | disturbance | MD Guilherme | MD Lauro [address] | | | | | | [address] | [place] | | | | | | [place] | [facility] | | | | | | [place], | [place], [place] | | | | | | [place] [address] | [address] Phone: | | | | | | Phone: | [phone] | | | | | | [phone] | Fax: | | | | | | Fax: | [phone] | | | | | | [phone] | | +--------+--------+ + + + + [...] | (Primary Dx) | | | | [place], | [place] | | | | | [place] [address] | [place] [address] | | | | | [phone] | [phone] | | | | | | | [...] +--------+ + + | AMB REFERRAL TO [facility] [place] | Routin | Sleep disturbance | Ordered: 11/19/2017 | | SLEEP DISO | e | | | + +--------+ + + as of this encounter Visit Diagnoses + + | Diagnosis | + + | Sleep disturbance - Primary | + + | Sleep disturbance, unspecified | + +"
--- OUTSIDE RECORDS SUMMARY | ~2018-01-25 | XMS | Encounter Summary ---
Demographics + + + | Address | [address] | | | [place] [address] | + + + | Home Phone [...] [facility] | | | and [place] | + + + | Organization | [facility] | | | and [...] [place], [place] | | | | | [address] | | + + + + + | Mirza Bee | ECON | [address] | | | | | [place] | | | | | [address] | | + + + + + Care Team Providers + +------+ + | Care Medical Unit Secretary Name | Role | Phone | + [...] | | | | | | AL REPAIR | | | | | | [...] + + | 10/27/ | Hospital | [facility] | Giuliano Padilla, | | | 2018 | Encounter | MED CTR XRAY [address] | [address] [facility] | | | | | [place] | [place], [place] | | | | | [place] [address] | [address] | | | | | [phone] | | | +--------+ + + + [...] 1 puff into | | 0 | / | | | 100-25 MCG/INH | the [...] +--------+ + + + in this encounter Visit Diagnoses Not on filein this encounter"
--- OUTSIDE RECORDS SUMMARY | ~2018-01-25 | XMS | Encounter Summary ---
Demographics + + + | Address | [address] | | | [place] [address] | + + + | Home Phone [...] + | Author | [facility] | | | and [place] | + + + | Organization | [facility] | | | and [place] | + [...] [place], [place] | | | | | [address] | | + + + + + | Mirza Bee | ECON | [address] | | | | | [place], [place] | | | | | [address] | | + + + + + Care Team Providers + +------+ + | Care Diesel Mechanic Farm Name | Role | Phone | + [...] | | | | | | [address] | [place] | | | | | | [place] | [facility] | | | | | | [place], | [place], [place] | | | | | | [place] [address] | [address] Phone: | | | | | | Phone: | [phone] | | | | | | [phone] | Fax: | | | | | | Fax: | [phone] | | | | | | [phone] | | +--------+--------+ + + + + [...] | (Primary Dx) | | | | [place], | [place] | | | | | [place] [address] | [place] [address] | | | | | [phone] | [phone] | | | | | | | [...] +--------+ + + | AMB REFERRAL TO [facility] [place] | Routin | Sleep disturbance | Ordered: 11/19/2017 | | SLEEP DISO | e | | | + +--------+ + + as of this encounter Visit Diagnoses + + | Diagnosis | + + | Sleep disturbance - Primary | + + | Sleep disturbance, unspecified | + +"
--- OUTSIDE RECORDS SUMMARY | ~2018-01-25 | XMS | Encounter Summary ---
Demographics + + + | Address | [address] | | | [place] [address] | + + + | Home Phone [...] [facility] | | | and [place] | + + + | Organization | [facility] | | | and [...] [place], [place] | | | | | [address] | | + + + + + | Mirza Bee | ECON | [address] | | | | | [place] | | | | | [address] | | + + + + + Care Team Providers + +------+ + | Care Cream Dumper Name | Role | Phone | + [...] + | 11/09/ | Office | [facility] | Giuliano Padilla, | Postop check | | 2018 | Visit | ORTHOPEDIC SURGERY | [address] | (Primary Dx) | | | | [address] [facility] | [place] | | | | | [place] | [address] | | | | | [address] | | | | | | [phone] | | | +--------+---------+ + + + [...]
--- OUTSIDE RECORDS SUMMARY | ~2018-01-25 | XMS | Encounter Summary ---
Demographics + + + | Address | [address] | | | [place] [address] | + + + | Home Phone [...] | [facility] | | | and Kirkana | + + + | Organization | [facility] | | | and [...] [place], [place] | | | | | [address] | | + + + + + | Mirza Bee | ECON | [address] | | | | | [place] | | | | | [address] | | + + + + + Care Team Providers + +------+ + | Care Sand Mill Operator Facing Sand Name | Role | Phone | + [...] | | | | | | | OR REPAIR | | | | | | [...] Arthroplasty | | | | [address] | [place], [place] | | | | | [place], [place] | [address] | | | | | [address] | | | | | | [phone] | | | +--------+---------+ + + + [...] + | Blood Pressure | 120/59 | 10/27/20175 PDT | + + + + | Pulse | 75 | 10/27/2017 1345 PDT | + + + + | Temperature | 37.4 C (99.3 F) | 10/27/2017 1120 PDT | + + + + | Respiratory Rate | 15 | 10/27/2017 134 PDT | + + [...] encounter Discharge Instructions Giuliano Padilla MD - 10/27/2017Mahesh hand elevated and wiggle fingers as much [...] | | | | | | type ([facility]) | | | | | | + [...] Visit Diagnoses Not on filein this encounter Admitting Diagnoses + + | [...] ONCE PRN, Wheezing, | | | Starting e 10/27/17 at 0859, | | | For [...] < 50, | | | Starting e 10/27/17 at 0859, | | | Repeat [...] | PDT | | | | | Thu10/27/17 at 1114, Maximum | | | | [...] | | | HOURS PRN, Pain, Starting Tu | | | | | | | [...] ropivacaine (NAROPIN) 2 mg/mL | Given | | 20 mLs | | Surgical | | (0.2%) injection PRN, Starting | | 8 10:38 | | | Site | | Thu10/27/17 at 1038, Intra-op | | PDT | | | | + +-------+ +--------+---+ + +---+---+ | | | +---+---+ in this encounter
--- OUTSIDE RECORDS SUMMARY | ~2018-01-25 | XMS | Encounter Summary ---
Demographics + + + | Address | [address] | | | [place] [address] | + + + | Home Phone [...] | Author | [facility] | | | and Kirkana | + + + | Organization | [facility] | | | and Kirkana [...] [place], [place] | | | | | [address] | | + + + + + | Mirza Bee | ECON | [address] | | | | | [place] | | | | | [address] | | + + + + + Care Team Providers + +------+ + | Care Daycare Teacher Name | Role | Phone | [...] + + | 12/16/ | Office | [facility] | Giuliano Padilla, | Right hand pain | | 2018 | Visit | ORTHOPEDIC SURGERY | [address] | (Primary Dx); Left | | | | [address] [facility] | [place] | hand pain; Postop | | | | [place] | [address] | check | | | | [address] | | | | | | [phone] | | | +--------+---------+ + + + [...] of motion of her thumb and good parts specialist of her hand No tenderness and [...]
--- OUTSIDE RECORDS SUMMARY | ~2018-01-25 | XMS | Encounter Summary ---
Demographics + + + | Address | [address] | | | [place] [address] | + + + | Home Phone [...] + + | Author | [facility] | | | and [place] | + + + | Organization | [facility] | | | and Kirkana [...] [place], [place] | | | | | [address] | | + + + + + | Mirza Bee | ECON | [address] | | | | | [place] | | | | | [address] | | + + + + + Care Team Providers + +------+ + | Care Ice Hockey Coach Name | Role | Phone | + [...] + + | 10/27/ | Hospital | [facility] | Giuliano Padilla, | | | 2018 | Encounter | MED CTR XRAY [address] | [address] [facility] | | | | | [place] | [place], [place] | | | | | [place] [address] | [address] | | | | | [phone] | | | +--------+ + + + [...] [place]) | | | | | | + [...]
--- OUTSIDE RECORDS SUMMARY | ~2018-01-25 | XMS | Clinical Summary ---
Demographics + + + | Address | [address] | | | [place] [address] | + + + | Home Phone | | + + + | Preferred Language | Unknown | + + + | Marital Status | Single | + + + | Shinto Affiliation [...] Providers + +------+ + | Care Toll Ticket Clerk Name | Role | Phone | + +------+ + | Ayana Taylor MD | PP | | + +------+ + Source Comments [facility] fully live [facility] Allergies Not on File Current [...] | | | + +--------+ +--------+-------+---------+ | MODEL [employer] MOLD MAKER PLASTER MEDICAID | MODEL AND MOLD MAKER PLASTER | xxxxxxxx | Medica | | | [...] | 1945 | [phone] | [place] [address] | | | jana | | | [phone] | | + +--------+ +--------+ + +"
--- OUTSIDE RECORDS SUMMARY | ~2018-01-25 | XMS | Encounter Summary ---
Demographics + + + | Address | [address] | | | [place] [address] | + + + | Home Phone [...] | Author | [facility] | | | and [place] | + + + | Organization | [facility] | | | and [place] [...] [place], [place] | | | | | [address] | | + + + + + | Mirza Bee | ECON | [address] | | | | | [place] | | | | | [address] | | + + + + + Care Team Providers + +------+ + | Care Pattern Technician Name | Role | Phone | [...] + | 12/16/ | Office | [facility] | Giuliano Padilla, | Right hand pain | | 2018 | Visit | ORTHOPEDIC SURGERY | [address] | (Primary Dx); Left | | | | [facility] | [place] | hand pain; Postop | | | | [place] | [id number] | check | | | | [address] | | | | | | [phone] | | | +--------+---------+ + + + [...] of motion of 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
--- OUTSIDE RECORDS SUMMARY | ~2018-01-25 | XMS | Encounter Summary ---
Demographics + + + | Address | [address] | | | [place] [address] | + + + | Home Phone [...] [facility] | | | and Kirkana | + + + | Organization | [facility] | | | and Kirkana [...] [place], [place] | | | | | [address] | | + + + + + | Mirza Bee | ECON | [address] | | | | | [place] | | | | | [address] | | + + + + + Care Team Providers + +------+ + | Care Cutter Banana Room Name | Role | Phone | [...] | | | | | | | DC REPAIR | | | | | | [...] / [facility] | Giuliano Padilla, | Osteoarthritis of | | 2018 | Encounter | MED CTR OR INTRA OP | MD [address] | first | | | | [address] | [place], [place] | carpometacarpal | | | | [place], [place] | [address] | ([facility]) joint of one | | | | [address] | | hand | | | | [phone] | | | +--------+ + + + [...]
--- OUTSIDE RECORDS SUMMARY | ~2018-01-25 | XMS | Encounter Summary ---
Demographics + + + | Address | [address] | | | [place] [address] | + + + | Home Phone [...] + | Author | [facility] | | | and [place]ana | + + + | Organization | [facility] | | | and [place] [...] [place], [place] | | | | | [address] | | + + + + + | Mirza Bee | ECON | [address] | | | | | [place] | | | | | [address] | | + + + + + Care Team Providers + +------+ + | Care Maintenance Department Manager Name | Role | Phone | [...] Arthroplasty | | | | [address] | [place], [place] | | | | | [place], [place] | [address] | | | | | [address] | | | | | | [phone] | | | +--------+---------+ + + + [...]
--- OUTSIDE RECORDS SUMMARY | ~2018-01-25 | XMS | Encounter Summary ---
Demographics + + + | Address | [address] | | | [place] [address] | + + + | Home Phone [...] Author | [facility] | | | and Kirkana | + + + | Organization | [facility] | | | and [place] [...] [place], [place] | | | | | [address] | | + + + + + | Mirza Bee | ECON | [address] | | | | | [place] | | | | | [address] | | + + + + + Care Team Providers + +------+ + | Care Yeast Fermentation Attendant Name | Role | Phone | [...] | | | | pulmonary | [facility] Lyn | [address] | | | | | disease, | [address] | [place] | | | | | unspecified | [place], | [place] | | | | | ([facility]) | [place] | [address] Phone: | | | | | Procedures | [address] | [phone] | | | | | FU | Phone: | Fax: | | | | | | [phone] | [phone] | | | | | | Fax: | | | | | | | [phone] | | + +--------+ + + + [...] | bronchitis (HCC) | | | | [place], | [place] | (Primary Dx); | | | | [place] [address] | [place] [address] | History of lung | | | | [phone] | [phone] | cancer; Chronic | | | | [...] stayed in the hospital 11 days at [facility] in [place] in June 2017, she says. After dave [...] She tells me she sees him at [facility], so it is not in our medical [...]
--- OUTSIDE RECORDS SUMMARY | ~2018-01-25 | XMS | Encounter Summary ---
Demographics + + + | Address | [address] | | | [place] [address] | + + + | Home Phone [...] | Author | [facility] | | | and Kirkana | + + + | Organization | [facility] | | [...] [place], [place] | | | | | [address] | | + + + + + | Mirza Bee | ECON | [address] | | | | | [place] | | | | | [address] | | + + + + + Care Team Providers + +------+ + | Care Advanced Registered Nurse Name | Role | Phone | [...] + + | 10/27/ | Hospital | [facility] | Giuliano Padilla, | | | 2018 | Encounter | MED CTR XRAY [address] | [address] [facility] | | | | | [place] | [place], [place] | | | | | [place] [address] | [address] | | | | | [phone] | | | +--------+ + + + [...]
--- OUTSIDE RECORDS SUMMARY | ~2018-01-25 | XMS | Encounter Summary ---
Demographics + + + | Address | [address] | | | [place] [address] | + + + | Home Phone [...] | Author | [facility] | | | and Kirkana | + + + | Organization | [facility] [...] [place], [place] | | | | | [address] | | + + + + + | Mirza Bee | ECON | [address] | | | | | [place], [place] | | | | | [address] | | + + + + + Care Team Providers + +------+ + | Care Carpenter Railcar Name | Role | Phone | + +------+ + | Davis Ivan MD | PCP | | + +------+ + Encounter Details +--------+ + + + + | Date | Type | Department | Care Team | Description | +--------+ + + + + | 12/16/ | Hospital | [facility] | Giuliano Padilla, | Left hand pain | | 2018 | Encounter | MED CTR LORAINE XRAY | MD [address] [facility] | | | | | [address] [place] | [place] | | | | | [place] | [address] | | | | | [address] | | | | | | [phone] | | | +--------+ + + + [...] | | | | | | type ([facility]) | | | | | [...]
--- OUTSIDE RECORDS SUMMARY | ~2018-01-25 | XMS | Encounter Summary ---
Demographics + + + | Address | [address] | | | [place] [address] | + + + | Home Phone [...] | Author | [facility] | | | and Kirkana | + + + | Organization | [facility] | | | [...] [place], [place] | | | | | [address] | | + + + + + | Mirza Bee | ECON | [address] | | | | | [place] | | | | | [address] | | + + + + + Care Team Providers + +------+ + | Care Baggage Clerk Name | Role | Phone | [...] | | | | | [address] | [address] [address] [place] | | | | | [place], [place] | [place] [address] | | | | | [address] | | | | | | | [...] +----+---+ + + | | 1 | [place] | | | | 0 | 43-degrees [...] +----+---+ + + | | 1 | [place] off | | | | 1 | [...] 10/27/17 1400 by | | eral | [id number] catheter system; | Yenifer Shelton RN | [...]
--- OUTSIDE RECORDS SUMMARY | ~2018-01-25 | XMS | Encounter Summary ---
Demographics + + + | Address | [address] | | | [place] [address] | + + + | Home Phone [...] | Author | [facility] | | | and Kirkana | + + + | Organization | [facility] | | | and [...] [place], [place] | | | | | [address] | | + + + + + | Mirza Bee | ECON | [address] | | | | | [place] | | | | | [address] | | + + + + + Care Team Providers + +------+ + | Care Feed Mill Supervisor Name | Role | Phone | [...] | | | | | | [place] REPAIR | | | | | | [...] Arthroplasty | | | | [address] | [place], [place] | | | | | [place], [place] | [address] | | | | | [address] | | | | | | [phone] | | | +--------+---------+ + + + [...]
--- OUTSIDE RECORDS SUMMARY | ~2018-01-25 | XMS | Clinical Summary ---
Demographics + + + | Address | [address] | | | [place] [address] | + + + | Home Phone [...] + +------+ + | Care Sheet Metal Journeyman Name | Role | Phone | + +------+ + | Ayana Taylor MD | PP | | + +------+ + Source Comments KARISHMA is fully live on both [facility] In[facility] Allergies Not on File Current [...] | | | + +--------+ +--------+-------+---------+ | HAND TUBE BENDER MEDICAID | HAND TUBE BENDER | [id number] | Medica | | | [...] | 1945 | [phone] | [place] [address] | | | jana | | | [phone] | | + +--------+ +--------+ + +"
--- OUTSIDE RECORDS SUMMARY | ~2018-01-25 | XMS | Encounter Summary ---
Demographics + + + | Address | [address] | | | [place] [address] | + + + | Home Phone [...] Author | [facility] | | | and Kirkana | + + + | Organization | [facility] | | | and [...] [place], [place] | | | | | [address] | | + + + + + | Mirza Bee | ECON | [address] | | | | | [place] | | | | | [address] | | + + + + + Care Team Providers + +------+ + | Care Luster Repairer Name | Role | Phone | [...] | | | | pulmonary | [facility] Lyn | [address] | | | | | disease, | [address] | [place] | | | | | unspecified | [place], | [place] | | | | | ([facility]) | [place] | [address] Phone: | | | | | Procedures | [address] | [phone] | | | | | FU | Phone: | Fax: | | | | | | [phone] | [phone] | | | | | | Fax: | | | | | | | [phone] | | + +--------+ + + + + Encounter Details +--------+---------+ + + + | Date | Type | Department | Care Team | Description | +--------+---------+ + + + | 11/19/ | Office | [facility] | Gurmeet Vargas | Chronic obstructive | | 2018 | Visit | PULMONARY [address] | MD [address] | bronchitis (HCC) | | | | [place], | [place] | (Primary Dx); | | | | [place] [address] | [place] [address] | History of lung | | | | [phone] | [phone] | cancer; Chronic | | | | [...] stayed in the hospital 11 days at [facility] in [place] in June 2017, she says. After dave [...] She tells me she sees him at [facility], so it is not in our [...]
--- OUTSIDE RECORDS SUMMARY | ~2018-01-25 | XMS | Encounter Summary ---
Demographics + + + | Address | [address] | | | [place] [address] | + + + | Home Phone [...] | Author | [facility] | | | and Kirkana | + + + | Organization | [facility] | | | and [...] [place], [place] | | | | | [address] | | + + + + + | Mirza Bee | ECON | [address] | | | | | [place], [place] | | | | | [address] | | + + + + + Care Team Providers + +------+ + | Care Candle Wrapping Machine Operator Name | Role | Phone [...] | | | | | | [address] | [place] | | | | | | [place] | [facility] | | | | | | [place], | [place], [place] | | | | | | [place] [address] | [address] Phone: | | | | | | Phone: | [phone] | | | | | | [phone] | Fax: | | | | | | Fax: | [phone] | | | | | | [phone] | | +--------+--------+ + + + + [...] | (Primary Dx) | | | | [place], | [place] | | | | | [place] [address] | [place] [address] | | | | | [phone] | [phone] | | | | | | | [...] +--------+ + + | AMB REFERRAL TO [facility] [place] | Routin | Sleep disturbance | Ordered: 11/19/2017 | | SLEEP DISO | e | | | + +--------+ + + as of this encounter Visit Diagnoses + + | Diagnosis | + + | Sleep disturbance - Primary | + + | Sleep disturbance, unspecified | + +"
--- OUTSIDE RECORDS SUMMARY | ~2018-01-25 | XMS | Encounter Summary ---
Demographics + + + | Address | [address] | | | [place] [address] | + + + | Home Phone [...] + | Author | [facility] | | | and Kirkana | + + + | Organization | [facility] | | | [...] [place], [place] | | | | | [address] | | + + + + + | Mirza Bee | ECON | [address] | | | | | [place] | | | | | [address] | | + + + + + Care Team Providers + +------+ + | Care Senior Medical Transcriptionist Name | Role | Phone | [...] | | | | | [address] | | | | | | [place], [place] | | | | | | [address] | | | | | | [phone] | | | +--------+ + + + [...]
--- OUTSIDE RECORDS SUMMARY | ~2018-01-25 | XMS | Clinical Summary ---
Demographics + + + | Address | [address] | | | [place] [address] | + + + | Home Phone [...] + | Author | [facility] | | | and Kirkana | + + + | Organization | [facility] | | [...] [place] | | | | | [address] | | + + + + + | Mirza Bee | ECON | [address] | | | | | [place] | | | | | [address] | | + + + + + Care Team Providers + +------+ + | Care Adapted Physical Education Specialist Name | Role | Phone | [...] | | type ([facility]) | | | | | | | [...] by | | interventional radiology at [facility] of the right lung massshows | [...] by Dr. Mace , thoracic surgeon at [facility] for | | consideration of bronchoscopy, [...] August [address]. Admitted to | | [facility] on September 27, 2014 for right-sided chest | | pain secondary to acute bronchitis.10. CT chest [facility] on September 28, 2014 demonstrated persistent 32 mm x 26 mm | | x 27 mm Right Hilar Mass. Last Assessment & Plan: Stephanie | | returned to the [facility] on | | November 09, 2014 for follow up of her locally recurrent RIGHT Lung | | cancer. Interval history is notable for the fact that Thea was | | admitted to [facility] in [place], [place] for acute | | exacerbation of chronic bronchitis. During her hospitalization | | there, a chest CT was performed demonstrating a persistent 32 x | | 26 mm right hilar mass. These images were reviewed subsequently | | at the [facility] on their PACS system. Radiographic [...] persistent disease. PET/CT schedule | | at [facility] on December 21, 2014 with follow up at [facility] | | the following week. [...] + + | Rheumatoid arthritis(714.0) ([facility]) | 03/30/2013 | + + + + [...] carpometacarpal | | | | | | ([facility]) joint of one | | | | [...] | | Giuliano Padilla, | Right 1st [facility] | | 2017 | | | MD [...] | BARD [employer]ESS | | 03/20/ | [id number] | | [id number]: Qty: 1 on | | | SYSTEMS [...] | | | INC. | | | /[id number] | | | | | | | [...] At | + + + | Sarita Raknin II, MD 10/27/2017 10:31 Anesthesia Airway | [...] | [employer] | [employer] | [id number] | Medica | | | | | HEALTH | | re | | | | | MDCR | | | | | + +--------+ +--------+ +---------+ | [employer] | [employer] | [id number] | Medica | +- | | | [...] | 1945 | [phone] | [place] [address] | | | jana | | | [address] | | + +--------+ +--------+ + +
[~2018-01-25 13:12] MED LIST changes: +CURCUMIN1 GM MISC; +LACTULOSE20 GM/30 M PO; +MELATONIN2.5 MG PO; +OCUVITE TABLET1 EAC1 PO; +PANTOPRAZOLE SO40 MG PO; +SENNA-TIME S T1 EACH PO; +VENLAFAXINE HCL75 M1 PO; -VENLAFAXINE HCL75 M2 PO
--- NOTE | 2018-01-25 16:48 | NUR ---
PATIENT BROUGHT BY STRETCHER FROM ED. PATIENT AMBULATED TO CHAIR. ASSESSMENT DONE. PATIENT'S AND DOG AT BEDSIDE. RT NOTIFIED OF NEB TREATMENT. PATIENT UP TO TOILET. PATIENT EATING DINNER. CALL LIGHT WITHIN REACH. NO FURTHER REQUESTS AT THIS TIME.
--- NOTE | 2018-01-25 18:11 | NUR ---
RESPIRATORY CALLED ABOUT NEB DUE. RESPIRATORY THERAPIST ON HIS WAY TO GIVE.
--- NOTE | 2018-01-25 18:15 | NUR ---
THIS RN SEES PT SIGNIFICANT OTHER ARRIVED. THIS RN TO TALK TO SIGINIFICANT OTHER. PT FOUND WITH MEDICATION FROM HOME IN HAND READY TO TAKE THEM. MEDICATIONS TAKEN FROM PT. PHARMACY CALLED. MEDICATIONS IDENTIFIED BY ANURAGRAMCIST AND GIVEN ORDERED WITH PHARMACISTS ASSISTANCE. PHRAMACIST STATES PTS HOME MEDICATION (AFATANIB) SHOULD BE HANDLED WITH GLOVES. CHARGE NURSE NOTIFIED OF PERCAUTIONS. INFORMATION CONVEYED IN HAND OFF REPORT. PT RESTING IN BED. RT NOTIFIED FOR A 2ND TIME OF NEB ORDERS. RT AT BEDSIDE GIVING NEB. CALL LIGHT WITHIN REACH. BED RAILS UP. PT REPORTING CRAMPING IN HANDS AND FEET. EDUCATION DONE R/T CRAMPING. WILL NOTIFY MD WHEN ROUNDING IN THE NEXT HOUR.
--- NOTE | 2018-01-25 18:45 | NUR ---
NON-ROUTINE VITAL SIGN ORDER RECOGNIZED. THIS RN REALIZED 1700 VITAL SIGN MISSED. MD NOTIFIED. MD STATES NO ADDITIONAL ACTION NEEDED, PROCEED WITH VITAL SIGNS ORDERED FROM THIS POINT FORWARD. ONCOMING NURSE NOTIFIED DURING HANDOFF REPORT.
--- NOTE | 2018-01-25 19:01 | NUR ---
NOTIFIED OF CRAMPING IN HANDS AND FEET. NO ORDERS AT THIS TIME.
--- NOTE | 2018-01-25 19:03 | NUR ---
PATIENT HERE FOR PE. TELE NUMBER 4. NO SOB, TOLERATING ROOM AIR. PATIENT REPORTING PAIN IN HER LEFT ANKLE. PATIENT HAS LUNG CANCER. PATIENT PORT-A-CATH ACCESSED PER PROTOCOL. LR RUNNING AT 75 ML/HR. CHEMO PRECAUTIONS IN PLACE. PATIENT TAKING HOME MEDS THAT NEED TO BE VERIFIED BY PHARMACY. NON-ROUTINE VITALS. USES CALL LIGHT APPROPRIATELY.
--- NOTE | 2018-01-25 19:21 | NUR ---
IN ROOM FOR REPORT, PT IS AWAKE IN BED. SHE DENIES NEEDS AT THIS TIME. CALL LIGHT IS WITHIN REACH.
--- NOTE | 2018-01-25 20:54 | NUR ---
ASSESSMENT COMPLETE, PT DENIES PAIN AND DIZZINES. SHE STATES THE CRAMPS IN HER FEET COME AND GO AND SHE HAS SOME NUMBNESS IN HER TOES. FRESH WATER AT BEDSIDE. PT DENIES FURTHER NEEDS.
--- NOTE | 2018-01-25 23:00 | NUR ---
PT ADMINISTERED MELATONIN, FRESH WATER AT BEDSIDE. PT DENIES FURTHER NEEDS. CALL LIGHT IS WITHIN REACH.
--- NOTE | 2018-01-26 00:51 | NUR ---
PT IS RESTING WITH EYES CLOSED, RESPIRATIONS ARE EVEN AND NONLABORED. CALL LIGHT IS WITHIN REACH.
--- NOTE | 2018-01-26 02:00 | NUR ---
PT IS RESTING WITH EYES CLOSED, RESPIRATIONS ARE EVEN AND NONLABORED. CALL LIGHT IS WITHIN REACH.
--- NOTE | 2018-01-26 04:14 | NUR ---
PT IS RESTING WITH EYES CLOSED, RESPIRATIONS ARE EVEN AND NONLABORED. CALL LIGHT IS WITHIN REACH.
[2018-01-26] MEDS ORDERED: PREDNISONE5 MG PO (07:11)
[2018-01-26] MEDS ORDERED: IRON325 M1 PO (07:12)
[2018-01-26] MEDS ORDERED: MIRTAZAPINE15 MG PO (07:14)
--- NOTE | 2018-01-26 07:18 | NUR ---
Medications reconciled using pharmacy records and patient interview
--- NOTE | 2018-01-26 08:00 | NUR ---
PATIENT SITTING UP ON EDGE OF BED EATING BREAKFAST. WASH CLOTH SET UP AT SINK FOR PATIENT, PATIENT STATES SHE HAD EVERYTHING FOR ORAL CARE SET UP AT HER BEDSIDE TABLE ALREADY AND DOES NOT NEED HELP. CALL LIGHT IN REACH. NO OTHER NEEDS AT THIS TIME.
--- NOTE | 2018-01-26 08:30 | NUR ---
THIS HIGHER EDUCATION ADMINISTRATOR ASSISTED PATIENT TO PERFORM ORAL CARE AND WASH HANDS AND FACE WITH WARM WASH CLOTH. RN IN ROOM WITH PATIENT. PATIENT STATES SHE DOES NOT WANT TO SHOWER TODAY SHE PLANS ON DISCHARGING BUT STATED SHE WOULDNT MIND WIPING DOWN WITH BATH WIPES. CALL LIGHT IN REACH. NO OTHER NEEDS AT THIS TIME.
--- NOTE | 2018-01-26 08:42 | NUR ---
ASSESSMENT AND MEDICATIONS DUE. PATIENT SITTING ON SIDE OF BED GETTING READY FOR DAY. PATIENT REPORTS PAIN IN NECK 11/08. PATIENT ATTRIBUTES IT TO WEARING THE TELE UNIT. PATIENT WOULD LIKE PAIN MEDICATION, THIS RN WILL SPEAK WITH MD. ASSESSMENT DONE. PATIENT REPORTS OCCASIONAL "ACHING" WITH BREATHING BUT STATES NONE AT THIS TIME. PATIENT DENIES CRAMPING AND NUMBNESS IN FEET. MEDICATIONS GIVEN. PATIENT RESTING IN BED WATCHING TV. CALL LIGHT WITHIN REACH. NO FURTHER REQUESTS AT THIS TIME.
--- NOTE | 2018-01-26 09:41 | NUR ---
CALLED MD ABOUT PATIENT'S PAIN. MD ORDERED LIDOCAINE PATCH. ORDER ENTERED. PATCH APPLIED (SEE MAR). PATIENT REPORTED 6/10 PAIN AT TIME OF APPLICATION. PATIENT RESTING IN BED WATCHING TV. NO FURTHER REQUESTS AT THIS TIME. CALL LIGHT WITHIN REACH.
--- NOTE | 2018-01-26 10:32 | NUR ---
CHECKED IN ON PATIENT. PATIENT IN BED VISITING WITH . EDUCATED PATIENT ABOUT NEED TO AMBULATE. CREATED WALKING CHART WITH GOAL OF AMBULATING X4 TODAY. REPORTED PATIENT HAD UNDERGONE "COOLSCULPTING" TO ELIMINATE FAT CELLS. CONCERNED THIS MAY HAVE CONTRIBUTED TO PE. PATIENT AND EDUCATED ON CURRENT ILLNESS AND TREATMENTS BY ZEV SCHMIDT. COOLSCULPTING OCCURRED "ABOUT A MONTH AGO". PATIENT REPORTED NECK PAIN IS IMPROVED AND RATED AT 3/10. PATIENT AMBULATING WITH OLGA VASQUEZ.
--- NOTE | 2018-01-26 11:03 | NUR ---
THIS FOREST FIRE OFFICER ASSISTED PATIENT TO WALK HALLWAY. PATIENT TOLERATED WALK WELL, BUT DID HAVE SOME SHORTNESS OF BREATH WHILE WALKING. PATIENT STATES SHE FELT FINE. PATIENT UP TO BATHROOM TO VOID AND BACK TO BED. PATIENT VISITING WITH FAMILY AT THIS TIME. NO OTHER NEEDS. CALL LIGHT IN REACH.
[2018-01-26] MEDS ORDERED: ENOXAPARIN100 MG/1 M SUB-Q (11:25)
--- NOTE | 2018-01-26 12:18 | NUR ---
ASSESSMENT AND MEDICATIONS DUE. PATIENT RESTING IN BED WATCHING TV. ASSESSMENT DONE. PATIENT REPORTED NECK PAIN IS "BETTER" 08/08. NO CHANGE IN LUNG SOUNDS (SEE ASSESSMENT). PATIENT AMBULATED IN [place] WITH ZEV SCHMIDT. PATIENT AWARE OF DISCHARGE TODAY WHICH WILL OCCUR AFTER LOVENOX ADMINISTRATION AND EDUCATION. MEDICATION GIVEN (SEE MAR). PATIENT IN BED RESTING. CALL LIGHT WITHIN REACH. NO FURTHER REQUESTS AT THIS TIME.
--- NOTE | 2018-01-26 14:00 | NUR ---
PATIENT RESTING IN BED, CALL LIGHT IN REACH. NO OTHER NEEDS AT THIS TIME.
--- NOTE | 2018-01-26 14:44 | EKG ---
[facility] [address] [facility] [place] [address] Signed Normal sinus rhythm Incomplete left bundle branch block Borderline ECG When compared with ECG of 19-JUN-2017 08:20, No significant change was found Confirmed by GREGORIO SWEENEY MD ([id number]) on 01/26/2018 2:44:23 PM Electronically Signed By: GREGORIO SWEENEY MD 01/26/18 1444 PATIENT NAME: TENA VILLALOBOS Electrocardiogram DATE OF : 43 PHYSICIAN: GREGORIO SWEENEY MD REPORT #: [id number] REPORT IS CONFIDENTIAL AND NOT TO BE RELEASED WITHOUT AUTHORIZATION
--- NOTE | 2018-01-26 15:17 | NUR ---
PHARMACIST REPORTED THAT PATIENT REPORTED HEADACHES AND WONDERED IF THEY WERE RELATED TO HER CURRENT DIAGNOSIS. SPOKE WITH PATIENT. PATIENT REPORTED HEADACHES HAVE OCCURRED FOR OVER A MONTH. HEADACHES LAST LESS THAN ONE MINUTE. NO OTHER SYMPTOMS ACCOMPANY THE HEADACHES. MD CALLED. MD STATED THAT PATIENT CAN BE DISCHARGED AND SHOULD FOLLOWUP WITH PCP.
--- NOTE | 2018-01-26 15:43 | NUR ---
MEDICATION DUE AND DISCHARGE INSTRUCTIONS. DISCHARGE INSTRUCTIONS GIVEN. PATIENT VERBALIZES UNDERSTANDING OF WHEN TO CALL A PROVIDER AND OF WHEN HER FOLLOW UP APPOINTMENT IS. PATIENT STATES ALL QUESTIONS HAVE BEEN ANSWERED AND SHE HAS NO FURTHER QUESTIONS. MEDICATIONS GIVEN (SEE MAR). PORT FLUSHED, BRISK BLOOD RETURN NOTED. PORT HEPARIN LOCKED PER PROTOCOL. PORT DEACCESSED PER PROTOCOL. PATIENT WHEELED FROM UNIT BY ZEV SCHMIDT.
== END 2018-01-26 15:50 | disposition home or self-care (01) ==
LOC: ED 13:12 → MS 13:13
PROVIDERS: ADMIT Internal Medicine
DX: I26.99 Other pulmonary embolism without acute cor pulmonale (principal); I10 Essential (primary) hypertension; M06.9 Rheumatoid arthritis, unspecified; M48.00 Spinal stenosis, site unspecified; J44.9 Chronic obstructive pulmonary disease, unspecified; F17.200 Nicotine dependence, unspecified, uncomplicated; F39 Unspecified mood [affective] disorder; F51.04 Psychophysiologic insomnia; E78.5 Hyperlipidemia, unspecified; E03.9 Hypothyroidism, unspecified; K21.9 Gastro-esophageal reflux disease without esophagitis; C34.90 Malignant neoplasm of unspecified part of unspecified bronchus or lung; Z86.73 Personal history of transient ischemic attack (TIA), and cerebral infarction without residual deficits; Z79.02 Long term (current) use of antithrombotics/antiplatelets; Z79.52 Long term (current) use of systemic steroids; Z79.899 Other long term (current) drug therapy
CPT/HCPCS: 80053; 83735; 84484; 85025; 85610; 93005; 93010; 94640; 96372; 99285; G0378; J1650; J7120; J7512; J8610

== ENCOUNTER 2018-02-08 19:39 | Inpatient (IN) | payer MEDICARE, OTHER ==
[~2018-02-08] VITALS: Ht 157.5 cm; Wt 69.3 kg
--- OUTSIDE RECORDS SUMMARY | ~2018-02-08 | XMS | Encounter Summary ---
Demographics + + + | Address | [address] | | | [place] [address] | + + + | Home Phone | | + + + | Preferred Language | Unknown | + + + | Marital Status | | + + + | Lutheran Affiliation | Unknown | + + + | Race | Unknown | + + + | Ethnic Group | Unknown | + + + Author + + + | Author | [facility] | | | and [place]ana | + + + | Organization | [facility] | | | and [place] | [...] [place], [place] | | | | | [address] | | + + + + + | Mirza Bee | ECON | [address] | | | | | [place] | | | | | [address] | | + + + + + Care Team Providers + +------+ + | Care Computer Trainer Name | Role | Phone | + [...] + + | 12/16/ | Office | [facility] | Giuliano Padilla, | Right hand pain | | 2018 | Visit | ORTHOPEDIC SURGERY | [address] | (Primary Dx); Left | | | | [address] [facility] | [place] | hand pain; Postop | | | | [place] | [address] | check | | | | [address] | | | | | | [phone] | | | +--------+---------+ + + + [...] of motion of her thumb and good manufacturing production technician of her hand No tenderness and no [...]
--- OUTSIDE RECORDS SUMMARY | ~2018-02-08 | XMS | Encounter Summary ---
Demographics + + + | Address | [address] | | | [place] [address] | + + + | Home Phone | | + + + | Preferred Language | Unknown | + + + | Marital Status | | + + + | Scientology Affiliation | Unknown | + + + | Race | Unknown | + + + | Ethnic Group | Unknown | + + + Author + + + | Author | [facility] | | | and Kirkana | + + + | Organization | [facility] | | | and Kirkana [...] [place], [place] | | | | | [address] | | + + + + + | Mirza Bee | ECON | [address] | | | | | [place], [place] | | | | | [address] | | + + + + + Care Team Providers + +------+ + | Care Roentgenologist Name | Role | Phone | + +------+ + | Davis Ivan MD | PCP | | + +------+ + Encounter Details +--------+ + + + + | Date | Type | Department | Care Team | Description | +--------+ + + + + | 12/16/ | Hospital | [facility] | Giuliano Padilla, | Left hand pain | | 2018 | Encounter | [facility] | MD [address] [facility] | | | | | [address] [place] | [place] | | | | | [place] | [address] | | | | | [address] | | | | | | [phone] | | | +--------+ + + + [...] + + + as of this encounter Medications at Time of Discharge + + + +---------+ + + | Medication | Sig. | Disp. | Refills | Start | End Date | | | | | | Date | | + + + +---------+ + + | afatinib | Take 30 mg by mouth | | | | | | (GILOTRIF) 30 mg | every morning | | | | | | tablet | (before breakfast). | | | | | + + + +---------+ + + | | Take 3 mLs by | 360 mL | 3 | // | | | albuterol-ipratropiu | nebulization 4 times | | | 17 | | | m (DUONEB) 2.5-0.5 | daily. CASIE: 12 | | | | | | mg/3 mL | months Dx: J44.9 | | | | | | SOLNIndications: | | | | | | | Chronic obstructive | | | | | | | pulmonary disease, | | | | | | | unspecified COPD | | | | | | | type ([facility]) | | | | | | + + + +---------+ + + | BREO ELLIPTA | Inhale 1 puff into | | 0 | 05/30/20 | | | 100-25 MCG/INH | the lungs Daily. | | | 17 | | | inhaler | | | | | | + + + +---------+ + + | cholecalciferol | Take 2,000 Units by | | | | | | (VITAMIN D-3) 1,000 | mouth Daily. | | | | | | units capsule | | | | | | + + + +---------+ + + | clopidogrel | Take 75 mg by mouth | | | | | | (PLAVIX) 75 mg | Daily. | | | | | | tablet | | | | | | + + + +---------+ + + | furosemide (LASIX) | Take 20 mg by mouth | | 0 | 10/27/19 | | | 20 mg tablet | Daily. | | | 17 | | + + + +---------+ + + | levothyroxine | Take 125 mcg by | | 0 | 10/05/19 | | | (SYNTHROID, | mouth every morning | | | 16 | | | LEVOTHROID) 125 mcg | (before breakfast). | | | | | | tablet | | | | | | + + + +---------+ + + | methotrexate 2.5 | take 6 tablets by | | 0 | 11/24/19 | | | MG | mouth every week | | | 18 | | | tabletIndications: | | | | | | | Right hand pain | | | | | | + + + +---------+ + + | NARCAN 4 MG/0.1ML | instill 1 spray in 1 | | 0 | 10/09/19 | | | | NOSTRIL if needed | | | 18 | | | | for opioid overdose | [...] +---------+ + + | potassium chloride | | | 0 | 10/20/19 | | | (K-DUR) 20 mEq ER | | | | 18 | | | tablet | | | [...] a day | | | 17 | | | tablet | | | | | | + + + +---------+ + + | Respiratory | Use as directed with | 1 each | 0 | 09/07/19 | | | Therapy Supplies | nebulizer | | | 16 | | | (NEBULIZER | medication. Dx: | | | | | | COMPRESSOR) KIT | J43.1 CASIE: 99 months | | | | | + + + +---------+ + + | rOPINIRole | Take 2 tablets by | | 0 | 11/11/19 | | | (REQUIP) 0.5 MG | mouth nightly. | | | 18 | | | tablet | | | | | | + + + +---------+ + + | simvastatin | Take 40 mg by mouth | | | | | | (ZOCOR) 40 mg tablet | nightly. | | | | | + + + +---------+ + + | tiotropium | Inhale 18 mcg into | | | | | | (SPIRIVA) 18 mcg | the lungs Daily. | | | | | | inhalation capsule | | | | | | + + + +---------+ + + | venlafaxine | take 1 tablet by | | 0 | // | | | (EFFEXOR XR) 75 mg | mouth every morning | | | 17 | | | 24 hr tablet | AT THE SAME TIME | | | | | | | EACH DAY WITH FOOD | | | | | + + + +---------+ + + as of this encounter Plan of Treatment Not on fileas of this encounter Procedures + +--------+ + [...] section. | + +--------+ + + + in this encounter Results XR Hand Right [...] + | Pain in limb | + +"
--- OUTSIDE RECORDS SUMMARY | ~2018-02-08 | XMS | Encounter Summary ---
Demographics + + + | Address | [address] | | | [place] [address] | + + + | Home Phone | | + + + | Preferred Language | Unknown | + + + | Marital Status | | + + + | Adventism Affiliation | Unknown | + + + | Race | Unknown | + + + | Ethnic Group | Unknown | + + + Author + + + | Author | [facility] | | | and Kirkana | + + + | Organization | [facility] | | | and [...] [place], [place] | | | | | [address] | | + + + + + | Mirza Bee | ECON | [address] | | | | | [place], [place] | | | | | [address] | | + + + + + Care Team Providers + +------+ + | Care Grease Packer Name | Role | Phone | [...] | Sleep | Diagnoses | Sam, | Cleve, | | | | Medicine | Sleep | Gurmeet | Devin Toney | | | | | disturbance | MD Guilherme | MD Lauro [address] | | | | | | [address] | [place] | | | | | | [place] | [facility] | | | | | | [place], | [place], [place] | | | | | | [place] [address] | [address] Phone: | | | | | | Phone: | [phone] | | | | | | [phone] | Fax: | | | | | | Fax: | [phone] | | | | | | [phone] | | +--------+--------+ + + + + [...] | (Primary Dx) | | | | [place], | [place] | | | | | [place] [address] | [place] [address] | | | | | [phone] | [phone] | | | | | | | [...] as of this encounter Plan of Treatment + +--------+ + + | Name | Priori | Associated Diagnoses | Order Schedule | | | ty | | | + +--------+ + + | AMB REFERRAL [facility] [place] | Routin | Sleep disturbance | Ordered: 11/19/2017 | | SLEEP DISO | e | | | + +--------+ + + as of this encounter Visit Diagnoses + + | Diagnosis | + + | Sleep disturbance - Primary | + + | Sleep disturbance, unspecified | + +"
--- OUTSIDE RECORDS SUMMARY | ~2018-02-08 | XMS | Encounter Summary ---
Demographics + + + | Address | [address] | | | [place] [address] | + + + | Home Phone [...] Author | [facility] | | | and Kirkana | + + + | Organization | [facility] | | | and [...] [place], [place] | | | | | [address] | | + + + + + | Mirza Bee | ECON | [address] | | | | | [place] | | | | | [address] | | + + + + + Care Team Providers + +------+ + | Care Sheetrock Applicator Name | Role | Phone | + +------+ + | Davis Ivan MD | PCP | | + +------+ + Reason for Visit + + + | Reason | Comments | + + + | Emphysema | Yearly follow up | + + + Evaluate & Treat (Routine) + +--------+ + + + + | Status | Reason | Specialty | Diagnoses / | Referred By | Referred To | | | | | Procedures | Contact | Contact | + +--------+ + + + + | Authorized | | Pulmonary | Diagnoses | Moncho, | Sam, | | | | Disease / | Chronic | Davis | Gurmeet | | | | Pulmonology | obstructive | MD [address] | MD Guilherme | | | | | pulmonary | [facility] | [address] | | | | | disease, | [address] | [place] | | | | | unspecified | [place], | [place] | | | | | ([facility]) | [place] | [address] Phone: | | | | | Procedures | [address] | [phone] | | | | | FU | Phone: | Fax: | | | | | | [phone] | [phone] | | | | | | Fax: | | | | | | | [phone] | | + +--------+ + + + + Encounter Details +--------+---------+ + + + | Date | Type | Department | Care Team | Description | +--------+---------+ + + + | 11/19/ | Office | [facility] | Gurmeet Vargas | Chronic obstructive | | 2018 | Visit | PULMONARY [address] | MD [address] | bronchitis (HCC) | | | | [place], | [place] | (Primary Dx); | | | | [place] [address] | [place] [address] | History of lung | | | | [phone] | [phone] | cancer; Chronic | | | | | | diarrhea; Sleep | | | | | | disturbance | +--------+---------+ + + + Social History [...] + | Pulse | 90 | 11/19/2017 135 PDT | + + + + | [...] + + + + | Weight | 58.6 kg (129 lb 3 | 11/19/20171351 PDT | | | oz) | | + + + + | Height | 157.5 cm (5' 2") | 11/19/20171351 PDT | + + + + | Body Mass Index | 23.63 | 11/19/2017 1352 PDT | + + + + in this encounter Progress Notes Gurmeet Vargas MD - 11/19/2017 1400 PDTAnnual follow-up of 72-year-old ex-smoker with chronic obstructive bronchitis and history of treated lung cancer. She also has diarr hea and cannot sleep For her chronic obstructive bronchitis, she takes Breo, a combination of long-acting albute rol and inhaled steroid, and it works to prevent any wheezing and chronic productive cough. She also uses Spiriva respimat once daily. She did have influenza and pneumonia and stayed in the hospital 11 days at [facility] in [place] in June 2017, she says. After dave t, she is continued to have loose bowel movements, 3 times daily. It turns out she uses 2 t easpoons of Citrucel powder twice daily and has for a long time. She says she was using lots of pain medication and stopped it several weeks ago to try to g et normal sleep. With the pain medicine she was getting sleep. But when she stopped it, sh e no longer could sleep. She took a medication for restless legs, ropinirole, which has hel ped, but she still does not sleep. She sees Dr. Park for follow-up of her hopefully cured lung cancer every 4-6 months but I do not see a note from him. She tells me she sees him at [facility], so it is not in our medical record. Physical exam: Well-developed woman in no distress. Weight 50.6 kg, blood pressure 118/62, pulse 90 regular temperature 98.3 respirations 16 oxygen saturation 97% on room air. HEENT shows reactive pupils, pink conjunctiva, normal oropharynx. The neck is normal. The lung arguello are completely clear with good breath sounds bilaterally. Cardiac rhythm is regular with no murmur or gallop. There are some radiation changes on the skin of her anterior thor ax. The abdomen is soft and nontender. Extremities show no edema. Laboratory evaluation: Recent chest x-ray is October 22, 2017 which shows an elevated right stan phragm and elevated right hilum chronically, her Quiñonez catheter, chetna in the right hilu m. These are unchanged from prior films. Impression and plan: 1. Chronic obstructive bronchitis: Continue Spiriva and Breo 2. Diarrhea: I suggested she stop her Citrucel powder for several days and told her I woul d expect that she would wind up with no bowel movements for several days. When that happens , I told her to tolerate the constipation and start taking one Citrucel teaspoon per day and see how that works. I told her if this does not solve her problem, she should see a gastro enterologist. 3. Not sleeping: I recommended she make an appointment with Dr. Devin Poon and bring al l her medicines so he can look them over. She will return as needed. We spent 25 minutes, at least half in counseling. Word process ing was used and I apologize for mistakes. Gurmeet Vargas M.D. Pulmonary critical carein this encounter Plan of Treatment Not on fileas of this encounter Visit Diagnoses + + | Diagnosis | + + | Chronic obstructive bronchitis (HCC) - Primary | + + | Obstructive chronic bronchitis without exacerbation | + + | History of lung cancer | + + | Personal history of malignant neoplasm of bronchus and lung | + + | Chronic diarrhea | + + | Diarrhea | + + | Sleep disturbance | + + | Sleep disturbance, unspecified | + +
--- OUTSIDE RECORDS SUMMARY | ~2018-02-08 | XMS | Encounter Summary ---
Demographics + + + | Address | [address] | | | [place] [address] | + + + | Home Phone [...] | [facility] | | | and Kirkana | + + + | Organization | [facility] | | | and [...] [place], [place] | | | | | [address] | | + + + + + | Mirza Bee | ECON | [address] | | | | | [place] | | | | | [address] | | + + + + + Care Team Providers + +------+ + | Care Milliner Helper Name | Role | Phone | + +------+ + | Davis Ivan MD | PCP | | + +------+ + Reason for Visit +---------+ + | Reason | Comments | +---------+ + | Post Op | Post op Right 1st [facility] Arthroplasty DOS: 10/27/17 | +---------+ + Encounter Details +--------+---------+ + + + | Date | Type | Department | Care Team | Description | +--------+---------+ + + + | 11/09/ | Office | [facility] | Giuliano Padilla, | Postop check | | 2018 | Visit | ORTHOPEDIC SURGERY | [address] | (Primary Dx) | | | | [address] [facility] | [place] | | | | | [place] | [address] | | | | | [address] | | | | | | [phone] | | | +--------+---------+ + + + [...] + as of this encounter Progress Notes Giuliano Padilla MD - 11/09/2017 1345 PDTPatient returns follow-up right first [facility] arthropl asty She is doing amazingly well Her wound is healed and sutures are removed and Steri-Strips applied She has excellent range of motion and mobility of her thumb We placed her in a removable brace And I will see her in 4 weeksin this encounter Plan of Treatment Not on fileas of this encounter Visit Diagnoses + + | Diagnosis | + + | Postop check - Primary | + + | Follow-up examination, following unspecified surgery | + +"
--- OUTSIDE RECORDS SUMMARY | ~2018-02-08 | XMS | Clinical Summary ---
Demographics + + + | Address | [address] | | | [place] [address] | + + + | Home Phone [...] | Author | [facility] | | | and Kirkana | + + + | Organization | [facility] | | | and Kirkana | [...] [place] | | | | | [address] | | + + + + + | Mirza Bee | ECON | [address] | | | | | [place] | | | | | [address] | | + + + + + Care Team Providers + +------+ + | Care Geospatial Engineer Name | Role | Phone | [...] | | | | | type ([facility]) | | | | | | | [...] | | interventional radiology at [facility] of the right lung massshows | [...] Dr. Beltran , thoracic surgeon at [facility] for | | consideration of bronchoscopy, [...] in August [address]. Admitted to | | [facility] on September 27, 2014 for right-sided chest | | pain secondary to acute bronchitis.10. CT chest [facility] on September 28, 2014 demonstrated persistent 32 mm x 26 mm | | x 27 mm Right Hilar Mass. Last Assessment & Plan: Stephanie | | returned to the [facility] on | | November 09, 2014 for follow up of her locally recurrent RIGHT Lung | | cancer. Interval history is notable for the fact that Thea was | | admitted to [facility] in [place], [place] for acute | | exacerbation of chronic bronchitis. During her hospitalization | | there, a chest CT was performed demonstrating a persistent 32 x | | 26 mm right hilar mass. These images were reviewed subsequently | | at the [facility] on their PACS system. Radiographic | [...] persistent disease. PET/CT schedule | | at [facility] on December 21, 2014 with follow up at [facility] | | the following week. [...] | + + + | Rheumatoid arthritis(714.0) ([facility]) | 03/30/2013 | + + + + [...] check | | 2017 | Visit | Tim [facility] | (Primary Dx) | +--------+ + + + + from [...] Lot | + +------+--------+ +--------+--------+--------+ | [facility] [employer] 8fr - | | | BARD ACCESS | | 03/20/ | [id number] | | [id number]: Qty: 1 on | | | SYSTEMS - | | 2016 | 0 / | | 07/28/2014 by , | | | ELLEN | | | /[id number] | | Chalino Gu MD, FACS | | | | | | 003 | + +------+--------+ +--------+--------+--------+ | Mini TightropeImplanted: Qty: | | Right: | [employer] | | 11/18/ | [id number] | | 1 on 03/20/2015 by Randy, | | Hand | [employer] | | 2020 | 9DS / | | Giuliano Briones MD | | | INC. | | | /[id number] | | | | | | | [...] section. | + +--------+ + + + from Last 3 Months Results XR Hand [...] | | | + +---------+ + + from Last 3 Months Insurance + +--------+ +--------+ +---------+ | Payer | Benefi | Subscriber | Type | Phone | Address | | | t Plan | ID | | | | | | / | | | | | | | Group | | | | | + +--------+ +--------+ +---------+ | [employer] | MODA | [id number] | Medica | | | | | HEALTH | | re | | | | | MDCR | | | | | + +--------+ +--------+ +---------+ | [employer] | [employer] | [id number] | Medica | [phone] | | MEDICAID HMO | HEALTH [...] | [address] | | [place] | al/Anant | | 1945 | [phone] | [place] [address] | | | jana | | | [phone] | | + +--------+ +--------+ + +
--- OUTSIDE RECORDS SUMMARY | ~2018-02-08 | XMS | Clinical Summary ---
Demographics + + + | Address | [address] | | | [place] [address] | + + + | Home Phone | | + + + | Preferred Language | Unknown | + + + | Marital Status | | + + + | Adventist Affiliation | Unknown | + + + | Race | Unknown | + + + | Ethnic Group | Unknown | + + + Author + + + | Author | [employer] | + + + | Organization | [facility] | + + + | Address | Unknown | + + + | Phone | Unavailable | + + + Support + + +---------+ + | Name | Relationship | Address | Phone | + + +---------+ + | Mirza Bee | ECON | Unknown | | + + +---------+ + Care Team Providers + +------+ + | Care Global Logistics Analyst Name | Role | Phone | [...] | | | | | Place [place] | | | | | | [address] | | | | | | | | +--------+---------+ + + + | 04/08/ | Office | | Santosh Sumner, | | | 2017 | Visit | | [address] | | | | | | [address] | | | | | | [place] [address] | | | | | | [phone] | | | | | | | [...] | N/A: | | | 08/20/ | 514645 | | Dbx 2.5ml - | | Spine | | | 2014 | | | [id number]: | | Cervic | | | | /[id number] | | Qty: 1 on 01/19/2013 by | | al | | | | [id number] | | Silviano Cabrera MD | | | | | | [id number] | | | | | | | | 8 / | + +------+--------+ +--------+--------+--------+ | Cage Triad Allograft | | N/A: | | | 08/16/ | [id number] | | [id number] - | | Spine | | | 2018 | 7 | | [id number]: Qty: 1 | | Cervic | | | | /[id number] | | on 01/19/2013 by Tim Cabrera | | | | 8-185 | | MD Silviano | | | | | | / | + +------+--------+ +--------+--------+--------+ | Cage Triad Allograft 6mm - | | N/A: | | | 06/23/ | [id number] | | [id number]: Qty: 1 | | Spine | | | 2018 | 6 | | on 01/19/2013 by Rick, | | Cervic | | | | /36580 | | MD Silviano | | al | | | | 0-206 | | | | | | | | / | + +------+--------+ +--------+--------+--------+ | Screw Vectra Self Drilling | | N/A: | | | | 04.613 | | Variable Angle 4.0x14mm - | | Spine | | | | .514 | | [id number]: Qty: 2 on | | Cervic | | | | /80967 | | 01/19/2013 by Silviano Cabrera, | | al | | | | 514 / | | | | | | | | | + +------+--------+ +--------+--------+--------+ | Screw Vectra Self Drilling | | N/A: | | | | 04.613 | | Variable Angle [id number] - | | Spine | | | | .516 | | [id number]: Qty: 2 on | | Cervic | | | | /37585 | | 01/19/2013 by Silviano Cabrera, | | al | | | | 516 / | | MD | | | | | | | + +------+--------+ +--------+--------+--------+ | Screw Vectra Self Drilling | | N/A: | | | | 04.613 | | Fixed Angle 4.0x14mm - | | Spine | | | | .714 | | [id number]: Qty: 2 on | | Cervic | | | | /85642 | | 01/19/2013 by Silviano Cabrera, | | al | | | | 714 / | | MD | | | | | | | + +------+--------+ +--------+--------+--------+ | Plate Vectra Cervical 30mm - | | N/A: | | | | 04.613 | | [id number]: Qty: 1 on | | Spine | | | | .130 | | 01/19/2013 by Silviano Cabrera, | | Cervic | | | | /36607 | | MD | | al | | | | 130 / | + +------+--------+ +--------+--------+--------+ | Allograft Putty Freeze Dried | | N/A: | | | 10/20/ | 514148 | | Dbx 2.5ml - | | Spine | | | 2014 | | | [id number]: | | Cervic | | | | /74382 | | Qty: 1 on 04/06/2013 by | | al | | | | 895957 | | Silviano Cabrera MD | | | | | | 173584 | | | | | | | | 3 / | + +------+--------+ +--------+--------+--------+ | Screw Vuepoint Post Cerv | | N/A: | | | | 799239 | | 3.5x12mm - [id number]: | | Spine | | | | 2 | | Qty: 3 on 04/06/2013 by | | Cervic | | | | /24715 | | Silviano Cabrera MD | | al | | | | 12 / | + +------+--------+ +--------+--------+--------+ | Screw Vuepoint Post Cerv | | N/A: | | | | 834134 | | 3.5x14mm - [id number]: | | Spine | | | | 4 | | Qty: 1 on 04/06/2013 by | | Cervic | | | | /11469 | | Silviano Cabrera MD | | al | | | | 14 / | + +------+--------+ +--------+--------+--------+ | Srini Vuepoint 3.5x60mm - | | N/A: | | | | [id number] | | [id number]: Qty: 1 on | | Spine | | | | 0 | | 04/06/2013 by Silviano Cabrera, | | Cervic | | | | /69890 | | MD | | al | | | | 60 / | + +------+--------+ +--------+--------+--------+ | Screw Vuepoint Post Cerv Set | | N/A: | | | | 208398 | | Tulip & Hook - | | Spine | | | | 0 | | [id number]: Qty: 4 on | | Cervic | | | | /45649 | | 04/06/2013 by Silviano Cabrera, | | al | | | | 00 / | | MD | | | | | | | + +------+--------+ +--------+--------+--------+ | Allograft Osteocell 10cc | | | | | 08/25/ | [id number] | | [id number] - | | | | | 2017 | 0 | | [id number]: Qty: 1 | | | | | | /87060 | | on 04/06/2013 | | | | | | 1542 / | + +------+--------+ +--------+--------+--------+ | Allograft Putty Freeze Dried | | N/A: | | | 11/10/ | [id number] | | Demineralized Bone Matrix Dbx | | Spine | | | 2014 | | | 1ml - | | Cervic | | | | /76489 | | [id number]: | | al | | | | [id number] | | Qty: 1 on 04/06/2013 by | | | | | | 385174 | | Silviano Cabrera MD | | | | | | 1 / | + +------+--------+ +--------+--------+--------+ | Graft Sponge Kit Bone Infuse | | | MEDTRONIC | | | 860760 | | Medium 56ml - | | | | | | 0 / | | [id number]: Qty: 1 on | | | | | | /M1112 | | 03/29/2014 by Silviano Cabrera, | | | | | | 05AA6 | | | | | | | | | + +------+--------+ +--------+--------+--------+ | Triad Alif Allograft | | | NUVASIVE | | 08/02/ | 073801 | | [id number]: Qty: 1 on | | | | | 2018 | 4 | | 03/29/2014 by Silviano Cabrera, | | | | | | /80154 | | MD | | | | | | 0-065 | | | | | | | | / | + +------+--------+ +--------+--------+--------+ | Screw Brigade 5.5x25mm - | | | NUVASIVE | | | 701057 | | [id number]: Qty: 2 on | | | | | | / | | 03/29/2014 by Silviano Cabrera, | | | | | | | | MD | | | | | | | + +------+--------+ +--------+--------+--------+ | Screw Brigade 5.5x30mm - | | | NUVASIVE | | | 584489 | | [id number]: Qty: 4 on | | | | | | 0 / / | | 03/29/2014 by Silviano Cabrera, | | | | | | | | MD | | | | | | | + +------+--------+ +--------+--------+--------+ | Evelyne Batista Allograft | | | NUVASIVE | | 07/14/ | 555845 | | [id number] - | | | | | 2012 | 2 / / | | [id number]: Qty: 1 on | | | | | | | | 03/29/2014 by Silviano Cabrera, | | | | | | | | MD | | | | | | | + +------+--------+ +--------+--------+--------+ | Svetlana Iraheta 5.5x35mm - | | | NUVASIVE | | | 517018 | | [id number]: Qty: 2 on | | | | | | / | | 03/29/2014 by Silviano Cabrera, | | | | | | | | MD | | | | | | | + +------+--------+ +--------+--------+--------+ | Allograft Block Extra Large | | N/A: | NUVASIVE | | 09/27/ | [id number] | | Formagraft Large - | | Back | | | 2018 | / | | [id number]: Qty: 1 on | | | | | | /FG-14 | | 03/29/2014 by Silviano Cabrera, | | | | | | 13 | | MD | | | | | | | + +------+--------+ +--------+--------+--------+ | Graft Sponge Kit Bone Infuse | | N/A: | MEDTRONIC | | 08/27/ | [id number] | | Large 8ml - | | Back | | | 2015 | 0 / | | [id number]: Qty: 1 on | | | | | | /M1112 | | 03/29/2014 by Silviano Cabrera, | | | | | | [id number] | | | | | | | | | + +------+--------+ +--------+--------+--------+ | Allograft Freeze Dried | | N/A: | LIFENET | | 11/13/ | [id number] | | Demineralized Cancellous Mix | | Spine | HEALTH | | 2016 | T | | Ic Graft Chamber 15cc - | | Lumbar | | | | /73357 | | [id number]: Qty: | | | | | | 57-303 | | 1 on 03/31/2014 by Rick, | | | | | | 1 / | | MD Silviano | | | | | | | + +------+--------+ +--------+--------+--------+ | Graft Sponge Kit Bone Infuse | | N/A: | MEDTRONIC | | 04/01/ | [id number] | | Medium 56ml - | | Spine | | | 2014 | 0 | | [id number]: Qty: 1 | | Lumbar | | | | /[id number] | | on 03/31/2014 by Rick, | | | | | | 05AAW | | MD Silviano | | | | | | / | + +------+--------+ +--------+--------+--------+ | Allograft Freeze Dried | | N/A: | LIFENET | | 11/01/ | [id number] | | Demineralized Cancellous Mix | | Spine | HEALTH | | 2016 | T | | Ic Graft Chamber 15cc - | | Lumbar | | | | /30081 | | [id number]: Qty: | | | | | | 37-301 | | 1 on 03/31/2014 by Rick, | | | | | | 1 / | | MD Silviano | | | | | | | + +------+--------+ +--------+--------+--------+ | Screw Precept Shank Mod | | N/A: | NUVASIVE | | | [id number] | | 7.5x50mm - [id number]: | | Spine | | | | 0 / / | | Qty: 4 on 03/31/2014 by | | Lumbar | | | | | | Silviano Cabrera MD | | | | | | | + +------+--------+ +--------+--------+--------+ | Screw Precept Shank Mod | | N/A: | NUVASIVE | | | [id number] | | 6.5x50mm - [id number]: | | Spine | | | | 0 / / | | Qty: 2 on 03/31/2014 by | | Lumbar | | | | | | Silviano Cabrera MD | | | | | | | + +------+--------+ +--------+--------+--------+ | Screw Locking For 6.25mm Sirni | | N/A: | NUVASIVE | | | [id number] | | - [id number]: Qty: 6 | | Spine | | | | 1 / / | | on 03/31/2014 by Rick, | | Lumbar | | | | | | MD Silviano | | | | | | | + +------+--------+ +--------+--------+--------+ | Screw Tulip For 6.25mm Srini - | | N/A: | NUVASIVE | | | [id number] | | [id number]: Qty: 6 on | | Spine | | | | 2 / / | | 03/31/2014 by Silviano Cabrera, | | Lumbar | | | | | | | | | | | | | + +------+--------+ +--------+--------+--------+ | Allograft Freeze Dried | | N/A: | LIFENET | | 11/08/ | [id number] | | Demineralized Cancellous Mix | | Spine | HEALTH | | 2017 | T | | Ic Graft Chamber 15cc - | | Lumbar | | | | /62034 | | [id number]: Qty: | | | | | | 98-303 | | 1 on 03/31/2014 by Rick, | | | | | | 9 / | | MD Silviano | | | | | | | + +------+--------+ +--------+--------+--------+ | Allograft Freeze Dried | | N/A: | LIFENET | | 08/16/ | [id number] | | Demineralized Cancellous Mix | | Spine | HEALTH | | 2016 | T | | Ic Graft Chamber 10cc - | | Lumbar | | | | /46655 | | [id number]: Qty: | | | | | | 22-301 | | 1 on 03/31/2014 by Rick, | | | | | | 3 / | | MD Silviano | | | | | | | + +------+--------+ +--------+--------+--------+ | Allograft Freeze Dried | | N/A: | LIFENET | | 07/13/ | [id number] | | Demineralized Cancellous Mix | | Spine | HEALTH | | 2016 | T | | Ic Graft Chamber 5cc - | | Lumbar | | | | /08595 | | [id number]: Qty: | | | | | | 40-301 | | 1 on 03/31/2014 by Rick, | | | | | | 1 / | | MD Silviano | | | | | | | + +------+--------+ +--------+--------+--------+ | Srini Spherx Dual Ball Ti Dbr | | N/A: | NUVASIVE | | | [id number] | | Ii 42.5mm - | | Spine | | | | 5 / / | | [id number]: Qty: 2 on | | Lumbar | [...] | [place] - PREMIERCARE | [place]-PRE | [id number] | Medica | | | | FAMILY | [place]ER[place] | | re | | | | | RE | | | | | | | FAMILY | | | | | + +--------+ +--------+-------+ + | MEDICAID | EASTER | [id number] | | | [address] | | | [place] | | | | [place] | | | [place] | | | | [address] | | | ELECTRIC OPERATOR | | | | | + [...] | | joann/Anant | | 1945 | [phone] | [place] | | | jana | | | [phone] | [phone] | + +--------+ +--------+ + +
--- OUTSIDE RECORDS SUMMARY | ~2018-02-08 | XMS | Encounter Summary ---
Demographics + + + | Address | [address] | | | [place] [address] | + + + | Home Phone | | + + + | Preferred Language | Unknown | + + + | Marital Status | | + + + | Christian Affiliation | Unknown | + + + | Race | Unknown | + + + | Ethnic Group | Unknown | + + + Author + + + | Author | [facility] | | | and [place] | + + + | Organization | [facility] | | | and [...] [place], [place] | | | | | [address] | | + + + + + | Mirza Bee | ECON | [address] | | | | | [place], [place] | | | | | [address] | | + + + + + Care Team Providers + +------+ + | Care Cable Swager Name | Role | Phone | + +------+ + | Davis Ivan MD | PCP | | + +------+ + Encounter Details +--------+ + + + + | Date | Type | Department | Care Team | Description | +--------+ + + + + | 12/16/ | Hospital | [facility] | Giuliano Padilla, | Left hand pain | | 2018 | Encounter | [facility] XRAY | MD [address] [facility] | | | | | [address] | [place] | | | | | [place] | [address] | | | | | [address] | | | | | | [phone] | | | +--------+ + + + [...] | | | | type ([facility]) | | | | | [...]
--- OUTSIDE RECORDS SUMMARY | ~2018-02-08 | XMS | Encounter Summary ---
Demographics + + + | Address | [address] | | | [place] [address] | + + + | Home Phone [...] Author | [facility] | | | and [place] | + + + | Organization | [facility] | | | and [place] [...] [place], [place] | | | | | [address] | | + + + + + | Mirza Bee | ECON | [address] | | | | | [place] | | | | | [address] | | + + + + + Care Team Providers + +------+ + | Care Mud Analysis Operator Name | Role | Phone | [...] + + | 11/09/ | Office | [facility] | Giuliano Padilla, | Postop check | | 2018 | Visit | ORTHOPEDIC SURGERY | [address] | (Primary Dx) | | | | [address] [facility] | [place] | | | | | [place] | [address] | | | | | [address] | | | | | | [phone] | | | +--------+---------+ + + + [...]
--- OUTSIDE RECORDS SUMMARY | ~2018-02-08 | XMS | Clinical Summary ---
Demographics + + + | Address | [address] | | | [place] [address] | + + + | Home Phone | | + + + | Preferred Language | Unknown | + + + | Marital Status | | + + + | Amish Affiliation | Unknown | + + + | Race | Unknown | + + + | Ethnic Group | Unknown | + + + Author + + + | Author | [facility] | | | and [place] | + + + | Organization | [facility] | | | and [place] [...] [place] | | | | | [address] | | + + + + + | Mirza Bee | ECON | [address] | | | | | [place] | | | | | [address] | | + + + + + Care Team Providers + +------+ + | Care Import Clerk Name | Role | Phone | [...] | | | | | | type ([facility]) | | | | | | | [...] biopsy by | | interventional radiology at [facility] of the right lung massshows | | [...] Dr. Beltran , thoracic surgeon at [facility] for | | consideration of [...] in August [address]. Admitted to | | [facility] on September 27, 2014 for right-sided chest | | pain secondary to acute bronchitis.10. CT chest [facility] on September 28, 2014 demonstrated persistent 32 mm x 26 mm | | x 27 mm Right Hilar Mass. Last Assessment & Plan: Stephanie | | returned to the [facility] on | | November 09, 2014 for follow up of her locally recurrent RIGHT Lung | | cancer. Interval history is notable for the fact that Thea was | | admitted to [facility] in [place], [place] for acute | | exacerbation of chronic bronchitis. During her hospitalization | | there, a chest CT was performed demonstrating a persistent 32 x | | 26 mm right hilar mass. These images were reviewed subsequently | | at the [facility] on their PACS system. Radiographic | [...] persistent disease. PET/CT schedule | | at [facility] on December 21, 2014 with follow up at [facility] | | the following [...] | + + + | Rheumatoid arthritis(714.0) ([facility]) | 03/30/2013 | + + + [...] Lot | + +------+--------+ +--------+--------+--------+ | [facility] [employer] 8fr - | | | BARD ACCESS | | 03/20/ | [id number] | | [id number]: Qty: 1 on | | | SYSTEMS [...] 2020 | 9DS / | | Giuliano Broines MD | | | INC. | | | /[id number] | | | | | | | [...] | [employer] | MODA | [id number] | Medica | | | | | HEALTH | | re | | | | | MDCR | | | | | + +--------+ +--------+ +---------+ | [employer] | MODA | [id number] | Medica | [phone] | | | MEDICAID HMO | HEALTH [...] YOLANDA | al/Anant | | 1945 | [phone] | [place] [address] | | | jana | | | [phone] | | + +--------+ +--------+ + +
--- OUTSIDE RECORDS SUMMARY | ~2018-02-08 | XMS | Encounter Summary ---
Demographics + + + | Address | [address] | | | [place] [address] | + + + | Home Phone [...] Author | [facility] | | | and [place] | + + + | Organization | [facility] | | | and [...] [place], [place] | | | | | [address] | | + + + + + | Mirza Bee | ECON | [address] | | | | | [place] | | | | | [address] | | + + + + + Care Team Providers + +------+ + | Care Rubber Insulator Name | Role | Phone | + [...] + + | 12/16/ | Office | [facility] | Giuliano Padilla, | Right hand pain | | 2018 | Visit | ORTHOPEDIC SURGERY | [address] | (Primary Dx); Left | | | | [address] [facility] | [place] | hand pain; Postop | | | | [place] | [address] | check | | | | [address] | | | | | | [phone] | | | +--------+---------+ + + + [...] motion of her thumb and 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
--- OUTSIDE RECORDS SUMMARY | ~2018-02-08 | XMS | Encounter Summary ---
Demographics + + + | Address | [address] | | | [place] [address] | + + + | Home Phone [...] | [facility] | | | and [place] | + + + | Organization | [facility] | | | and [place] [...] [place], [place] | | | | | [address] | | + + + + + | Mirza Bee | ECON | [address] | | | | | [place] | | | | | [address] | | + + + + + Care Team Providers + +------+ + | Care Box Maker Wood Name | Role | Phone | + [...] | | | | pulmonary | [facility] | [address] | | | | | disease, | [address] | [place] | | | | | unspecified | [place], | [place] | | | | | ([facility]) | [place] | [address] Phone: | | | | | Procedures | [address] | [phone] | | | | | FU | Phone: | Fax: | | | | | | [phone] | [phone] | | | | | | Fax: | | | | | | | [phone] | | + +--------+ + + + + Encounter Details +--------+---------+ + + + | Date | Type | Department | Care Team | Description | +--------+---------+ + + + | 11/19/ | Office | [facility] | Gurmeet Vargas | Chronic obstructive | | 2018 | Visit | PULMONARY [address] | MD [address] | bronchitis (HCC) | | | | [place], | [place] | (Primary Dx); | | | | [place] [address] | [place] [address] | History of lung | | | | [phone] | [phone] | cancer; Chronic | | | | [...] stayed in the hospital 11 days at [facility] in [place] in June 2017, she says. After dave [...] She tells me she sees him at [facility], so it is not in our [...]
--- OUTSIDE RECORDS SUMMARY | ~2018-02-08 | XMS | Encounter Summary ---
Demographics + + + | Address | [address] | | | [place] [address] | + + + | Home Phone [...] Author | [facility] | | | and [place] | + + + | Organization | [facility] | | | and [...] [place], [place] | | | | | [address] | | + + + + + | Mirza Bee | ECON | [address] | | | | | [place] | | | | | [address] | | + + + + + Care Team Providers + +------+ + | Care Calculating Machine Operator Name | Role | Phone [...] + + | 11/09/ | Office | [facility] | Giuliano Padilla, | Postop check | | 2018 | Visit | ORTHOPEDIC SURGERY | [address] | (Primary Dx) | | | | [address] [facility] | [place] | | | | | [place] | [address] | | | | | [address] | | | | | | [phone] | | | +--------+---------+ + + + [...]
--- OUTSIDE RECORDS SUMMARY | ~2018-02-08 | XMS | Clinical Summary ---
Demographics + + + | Address | [address] | | | [place] [address] | + + + | Home Phone | | + + + | Preferred Language | Unknown | + + + | Marital Status | | + + + | Zoroastrianism Affiliation | Unknown | + + + | Race | Unknown | + + + | Ethnic Group | Unknown | + + + Author + + + | Author | [employer] | + + + | Organization | [facility] [employer] [facility] | + + + | Address | Unknown | + + + | Phone | Unavailable | + + + Support + + +---------+ + | Name | Relationship | Address | Phone | + + +---------+ + | Mirza Bee | ECON | Unknown | | + + +---------+ + Care Team Providers + +------+ + | Care Budget Examiner Name | Role | Phone | [...] | | | | | Place [place] | | | | | | [address] | | | | | | | | +--------+---------+ + + + | 04/08/ | Office | | Santosh Sumner, | | | 2017 | Visit | | [address] | | | | | | [address] | | | | | | [place] [address] | | | | | | [phone] | | | | | | | [...] | N/A: | | | 08/20/ | 249809 | | Dbx 2.5ml - | | Spine | | | 2014 | | | [id number]: | | Cervic | | | | /[id number] | | Qty: 1 on 01/19/2013 by | | al | | | | 751005 | | Silviano Cabrera MD | | | | | | [id number] | | | | | | | | 8 / | + +------+--------+ +--------+--------+--------+ | Cage Triad Allograft | | N/A: | | | 08/16/ | 722231 | | [id number] | | Spine | | | 2018 | 7 | | [id number]: Qty: 1 | | Cervic | | | | /12886 | | on 01/19/2013 by Tim Cabrera | | | | 8-185 | | MD Silviano | | | | | | / | + +------+--------+ +--------+--------+--------+ | Cage Triad Allograft 6mm - | | N/A: | | | 06/23/ | 409355 | | [id number]: Qty: 1 | | Spine | | | 2018 | 6 | | on 01/19/2013 by Rick, | | Cervic | | | | /89562 | | MD Silviano | | al | | | | 0-206 | | | | | | | | / | + +------+--------+ +--------+--------+--------+ | Screw Vectra Self Drilling | | N/A: | | | | 04.613 | | Variable Angle 4.0x14mm - | | Spine | | | | .514 | | [id number]: Qty: 2 on | | Cervic | | | | /88194 | | 01/19/2013 by Silviano Cabrera, | | al | | | | 514 / | | | | | | | | | + +------+--------+ +--------+--------+--------+ | Screw Vectra Self Drilling | | N/A: | | | | 04.613 | | Variable Angle [id number] - | | Spine | | | | .516 | | [id number]: Qty: 2 on | | Cervic | | | | /86349 | | 01/19/2013 by Silviano Cabrera, | | al | | | | 516 / | | MD | | | | | | | + +------+--------+ +--------+--------+--------+ | Screw Vectra Self Drilling | | N/A: | | | | 04.613 | | Fixed Angle 4.0x14mm - | | Spine | | | | .714 | | [id number]: Qty: 2 on | | Cervic | | | | /29742 | | 01/19/2013 by Silviano Cabrera, | | al | | | | 714 / | | MD | | | | | | | + +------+--------+ +--------+--------+--------+ | Plate Vectra Cervical 30mm - | | N/A: | | | | 04.613 | | [id number]: Qty: 1 on | | Spine | | | | .130 | | 01/19/2013 by Silviano Cabrera, | | Cervic | | | | /29072 | | MD | | al | | | | 130 / | + +------+--------+ +--------+--------+--------+ | Allograft Putty Freeze Dried | | N/A: | | | 10/20/ | 357058 | | Dbx 2.5ml - | | Spine | | | 2014 | | | [id number]: | | Cervic | | | | /93743 | | Qty: 1 on 04/06/2013 by | | al | | | | 703741 | | Silviano Cabrera MD | | | | | | 953757 | | | | | | | | 3 / | + +------+--------+ +--------+--------+--------+ | Screw Vuepoint Post Cerv | | N/A: | | | | 551516 | | 3.5x12mm - [id number]: | | Spine | | | | 2 | | Qty: 3 on 04/06/2013 by | | Cervic | | | | /48886 | | Silviano Cabrera MD | | al | | | | 12 / | + +------+--------+ +--------+--------+--------+ | Screw Vuepoint Post Cerv | | N/A: | | | | 885445 | | 3.5x14mm - [id number]: | | Spine | | | | 4 | | Qty: 1 on 04/06/2013 by | | Cervic | | | | /36855 | | Silviano Cabrera MD | | al | | | | 14 / | + +------+--------+ +--------+--------+--------+ | Srini Vuepoint 3.5x60mm - | | N/A: | | | | 100018 | | [id number]: Qty: 1 on | | Spine | | | | 0 | | 04/06/2013 by Silviano Cabrera, | | Cervic | | | | /86628 | | MD | | al | | | | 60 / | + +------+--------+ +--------+--------+--------+ | Screw Vuepoint Post Cerv Set | | N/A: | | | | 154573 | | Tulip & Hook - | | Spine | | | | 0 | | [id number]: Qty: 4 on | | Cervic | | | | /88902 | | 04/06/2013 by Silviano Cabrera, | | al | | | | 00 / | | MD | | | | | | | + +------+--------+ +--------+--------+--------+ | Allograft Osteocell 10cc | | | | | 08/25/ | 350356 | | [id number] - | | | | | 2017 | 0 | | [id number]: Qty: 1 | | | | | | /92027 | | on 04/06/2013 | | | | | | 1542 / | + +------+--------+ +--------+--------+--------+ | Allograft Putty Freeze Dried | | N/A: | | | 11/10/ | [id number] | | Demineralized Bone Matrix Dbx | | Spine | | | 2014 | | | 1ml - | | Cervic | | | | /81968 | | [id number]: | | al | | | | [id number] | | Qty: 1 on 04/06/2013 by | | | | | | 572492 | | Silviano Cabrera MD | | | | | | 1 / | + +------+--------+ +--------+--------+--------+ | Graft Sponge Kit Bone Infuse | | | MEDTRONIC | | | 278027 | | Medium 56ml - | | | | | | 0 / | | [id number]: Qty: 1 on | | | | | | /[id number] | | 03/29/2014 by Silviano Cabrera, | | | | | | 05AA6 | | | | | | | | | + +------+--------+ +--------+--------+--------+ | Triad Alif Allograft | | | NUVASIVE | | 08/02/ | 397561 | | [id number]: Qty: 1 on | | | | | 2018 | 4 | | 03/29/2014 by Silviano Cabrera, | | | | | | /26824 | | MD | | | | | | 0-065 | | | | | | | | / | + +------+--------+ +--------+--------+--------+ | Screw Brigade 5.5x25mm - | | | NUVASIVE | | | 627523 | | [id number]: Qty: 2 on | | | | | | / | | 03/29/2014 by Silviano Cabrera, | | | | | | | | MD | | | | | | | + +------+--------+ +--------+--------+--------+ | Screw Brigade 5.5x30mm - | | | NUVASIVE | | | 583289 | | [id number]: Qty: 4 on | | | | | | 0 / / | | 03/29/2014 by Silviano Cabrera, | | | | | | | | MD | | | | | | | + +------+--------+ +--------+--------+--------+ | Evelyne Batista Allograft | | | NUVASIVE | | 07/14/ | 720296 | | [id number] - | | | | | 2012 | 2 / / | | [id number]: Qty: 1 on | | | | | | | | 03/29/2014 by Silviano Cabrera, | | | | | | | | MD | | | | | | | + +------+--------+ +--------+--------+--------+ | Svetlana Iraheta 5.5x35mm - | | | NUVASIVE | | | 700100 | | [id number]: Qty: 2 on | | | | | | / | | 03/29/2014 by Silviano Cabrera, | | | | | | | | MD | | | | | | | + +------+--------+ +--------+--------+--------+ | Allograft Block Extra Large | | N/A: | NUVASIVE | | 09/27/ | 135607 | | Formagraft Large - | | Back | | | 2018 | / | | [id number]: Qty: 1 on | | | | | | /FG-14 | | 03/29/2014 by Silviano Cabrera, | | | | | | 13 | | MD | | | | | | | + +------+--------+ +--------+--------+--------+ | Graft Sponge Kit Bone Infuse | | N/A: | MEDTRONIC | | 08/27/ | [id number] | | Large 8ml - | | Back | | | 2015 | 0 / | | [id number]: Qty: 1 on | | | | | | /[id number] | | 03/29/2014 by Silviano Cabrera, | | | | | | [id number] | | | | | | | | | + +------+--------+ +--------+--------+--------+ | Allograft Freeze Dried | | N/A: | LIFENET | | 11/13/ | [id number] | | Demineralized Cancellous Mix | | Spine | HEALTH | | 2016 | T | | Ic Graft Chamber 15cc - | | Lumbar | | | | /78879 | | [id number]: Qty: | | | | | | 57-303 | | 1 on 03/31/2014 by Rick, | | | | | | 1 / | | MD Silviano | | | | | | | + +------+--------+ +--------+--------+--------+ | Graft Sponge Kit Bone Infuse | | N/A: | MEDTRONIC | | 04/01/ | [id number] | | Medium 56ml - | | Spine | | | 2014 | 0 | | [id number]: Qty: 1 | | Lumbar | | | | /[id number] | | on 03/31/2014 by Rick, | | | | | | 05AAW | | MD Silviano | | | | | | / | + +------+--------+ +--------+--------+--------+ | Allograft Freeze Dried | | N/A: | LIFENET | | 11/01/ | [id number] | | Demineralized Cancellous Mix | | Spine | HEALTH | | 2016 | T | | Ic Graft Chamber 15cc - | | Lumbar | | | | /34580 | | [id number]: Qty: | | | | | | 37-301 | | 1 on 03/31/2014 by Rick, | | | | | | 1 / | | MD Silviano | | | | | | | + +------+--------+ +--------+--------+--------+ | Screw Precept Shank Mod | | N/A: | NUVASIVE | | | [id number] | | 7.5x50mm - [id number]: | | Spine | | | | 0 / / | | Qty: 4 on 03/31/2014 by | | Lumbar | | | | | | Silviano Cabrera MD | | | | | | | + +------+--------+ +--------+--------+--------+ | Screw Precept Shank Mod | | N/A: | NUVASIVE | | | [id number] | | 6.5x50mm - [id number]: | | Spine | | | | 0 / / | | Qty: 2 on 03/31/2014 by | | Lumbar | | | | | | Silviano Cabrera MD | | | | | | | + +------+--------+ +--------+--------+--------+ | Screw Locking For 6.25mm Srini | | N/A: | NUVASIVE | | | [id number] | | - [id number]: Qty: 6 | | Spine | | | | 1 / / | | on 03/31/2014 by Rick, | | Lumbar | | | | | | MD Silviano | | | | | | | + +------+--------+ +--------+--------+--------+ | Screw Tulip For 6.25mm Srini - | | N/A: | NUVASIVE | | | [id number] | | [id number]: Qty: 6 on | | Spine | | | | 2 / / | | 03/31/2014 by Silviano Cabrera, | | Lumbar | | | | | | | | | | | | | + +------+--------+ +--------+--------+--------+ | Allograft Freeze Dried | | N/A: | LIFENET | | 11/08/ | [id number] | | Demineralized Cancellous Mix | | Spine | HEALTH | | 2017 | T | | Ic Graft Chamber 15cc - | | Lumbar | | | | /76195 | | [id number]: Qty: | | | | | | 98-303 | | 1 on 03/31/2014 by Rick, | | | | | | 9 / | | MD Silviano | | | | | | | + +------+--------+ +--------+--------+--------+ | Allograft Freeze Dried | | N/A: | LIFENET | | 08/16/ | [id number] | | Demineralized Cancellous Mix | | Spine | HEALTH | | 2016 | T | | Ic Graft Chamber 10cc - | | Lumbar | | | | /88922 | | [id number]: Qty: | | | | | | 22-301 | | 1 on 03/31/2014 by Rick, | | | | | | 3 / | | MD Silviano | | | | | | | + +------+--------+ +--------+--------+--------+ | Allograft Freeze Dried | | N/A: | LIFENET | | 07/13/ | [id number] | | Demineralized Cancellous Mix | | Spine | HEALTH | | 2016 | T | | Ic Graft Chamber 5cc - | | Lumbar | | | | /71924 | | [id number]: Qty: | | | | | | 40-301 | | 1 on 03/31/2014 by Rick, | | | | | | 1 / | | MD Silviano | | | | | | | + +------+--------+ +--------+--------+--------+ | Srini Spherx Dual Ball Ti Dbr | | N/A: | NUVASIVE | | | [id number] | | Ii 42.5mm - | | Spine | | | | 5 / / | | [id number]: Qty: 2 on | | Lumbar | [...] | MA - PREMIERCARE | MA-PRE | [id number] | Medica | | | | FAMILY | MIERCA | | re | | | | | RE | | | | | | | FAMILY | | | | | + +--------+ +--------+-------+ + | MEDICAID | EASTER | [id number] | | | [address] | | | N | | | | [place] | | | [place] | | | | [address] | | | SALES FORECAST ANALYST | | | | | + +--------+ [...] | | joann/Anant | | 1945 | [phone] | [place] | | | jana | | | [phone] | [phone] | + +--------+ +--------+ + +
--- OUTSIDE RECORDS SUMMARY | ~2018-02-08 | XMS | Clinical Summary ---
Demographics + + + | Address | [address] | | | [place] [address] | + + + | Home Phone | | + + + | Preferred Language | Unknown | + + + | Marital Status | Single | + + + | Samaritan Affiliation [...] Team Providers + +------+ + | Care Test Design Engineer Name | Role | Phone | + +------+ + | Ayana Taylor MD | PP | | + +------+ + Source Comments KARISHMA is fully live on both [facility] Allergies Not on File Current [...] | | | + +--------+ +--------+-------+---------+ | EXEC. CREATIVE DIRECTOR MEDICAID | EXEC. CREATIVE DIRECTOR | xxxxxxxx | Medica | | | [...] | | al/Fam | | 1945 | [phone] | [place] [address] | | | jana | | | 9071 | | + +--------+ +--------+ + +"
--- OUTSIDE RECORDS SUMMARY | ~2018-02-08 | XMS | Encounter Summary ---
Demographics + + + | Address | [address] | | | [place] [address] | + + + | Home Phone [...] + | Author | [facility] | | | and [place]ana | + + + | Organization | [facility] | | | and [place] | [...] [place], [place] | | | | | [address] | | + + + + + | Mirza Bee | ECON | [address] | | | | | [place], [place] | | | | | [address] | | + + + + + Care Team Providers + +------+ + | Care Community Nurse Name | Role | Phone | + +------+ + | Davis Ivan MD | PCP | | + +------+ + Encounter Details +--------+ + + + + | Date | Type | Department | Care Team | Description | +--------+ + + + + | 12/16/ | Hospital | [facility] | Giuliano Padilla, | Left hand pain | | 2018 | Encounter | MED CTR [facility] XRAY | MD [address] [facility] | | | | | [address] [place] | [place] | | | | | [place] | [address] | | | | | [address] | | | | | | [phone] | | | +--------+ + + + [...]
--- OUTSIDE RECORDS SUMMARY | ~2018-02-08 | XMS | Clinical Summary ---
Demographics + + + | Address | [address] | | | [place] [address] | + + + | Home Phone [...] | [facility] | | | and [place] | + + + | Organization | [facility] | | | and [place] | [...] [place] | | | | | [address] | | + + + + + | Mirza Bee | ECON | [address] | | | | | [place] | | | | | [address] | | + + + + + Care Team Providers + +------+ + | Care Enrollment Management Manager Name | Role | Phone | [...] | | | | | | type ([facility]) | | | | | | | [...] biopsy by | | interventional radiology at [facility] [...] by Dr. Beltran , thoracic surgeon at [facility] for | | consideration of bronchoscopy, [...] in August [address]. Admitted to | | [facility] on September 27, 2014 for right-sided chest | | pain secondary to acute bronchitis.10. CT chest [facility] on September 28, 2014 demonstrated persistent 32 mm x 26 mm | | x 27 mm Right Hilar Mass. Last Assessment & Plan: Stephanie | | returned to [facility] on | | November 09, 2014 for follow up of her locally recurrent RIGHT Lung | | cancer. Interval history is notable for the fact that Thea was | | admitted to [facility] in [place], [place] for acute | | exacerbation of [...] disease. PET/CT schedule | | at [facility] on December 21, 2014 with follow up at [facility] | | the following week. [...] | + + + | Rheumatoid arthritis(714.0) ([facility]) | 03/30/2013 | + + + + [...] Lot | + +------+--------+ +--------+--------+--------+ | [facility] [employer] 8fr - | | | BARD ACCESS | | 03/20/ | [id number] | | [id number]: Qty: 1 on | | | SYSTEMS [...] | | | INC. | | | /57754 | | | | | | | [...] | [employer] MEDICARE | MODA | [id number] | Medica | | | | | HEALTH | | re | | | | | MDCR | | | | | + +--------+ +--------+ +---------+ | [employer] HE[employer] PLAN | MODA | [id number] | Medica | [id number] | | | MEDICAID HMO | HEALTH [...] YOLANDA | al/Anant | | 1945 | [phone] | [place] [address] | | | jana | | | [address] | | + +--------+ +--------+ + +
--- OUTSIDE RECORDS SUMMARY | ~2018-02-08 | XMS | Clinical Summary ---
Demographics + + + | Address | [address] | | | [place] [address] | + + + | Home Phone | | + + + | Preferred Language | Unknown | + + + | Marital Status | Single | + + + | Holiness Affiliation [...] Team Providers + +------+ + | Care Creative Assistant Name | Role | Phone | + +------+ + | Ayana Taylor MD | PP | | + +------+ + Source Comments KARISHMA is fully live on both [facility] and [facility] Allergies Not on File Current Medications Not [...] | | | + +--------+ +--------+-------+---------+ | INSTANT POTATO PROCESSOR MEDICAID | INSTANT POTATO PROCESSOR | xxxxxxxx | Medica | | | [...] | | al/Fam | | 1945 | [phone] | [place] [address] | | | jana | | | [address] | | + +--------+ +--------+ + +"
--- OUTSIDE RECORDS SUMMARY | ~2018-02-08 | XMS | Encounter Summary ---
Demographics + + + | Address | [address] | | | [place] [address] | + + + | Home Phone [...] Author | [facility] | | | and [place] | + + + | Organization | [facility] | | | and [...] [place], [place] | | | | | [address] | | + + + + + | Mirza Bee | ECON | [address] | | | | | [place] | | | | | [address] | | + + + + + Care Team Providers + +------+ + | Care Web Content Producer Name | Role | Phone | [...] + + | 12/16/ | Office | [facility] | Giuliano Padilla, | Right hand pain | | 2018 | Visit | ORTHOPEDIC SURGERY | [address] | (Primary Dx); Left | | | | [address] [facility] | [place] | hand pain; Postop | | | | [place] | [address] | check | | | | [address] | | | | | | [phone] | | | +--------+---------+ + + + [...] of motion of her thumb and good acetylene gas compressor of her hand No tenderness and no [...]
--- OUTSIDE RECORDS SUMMARY | ~2018-02-08 | XMS | Encounter Summary ---
Demographics + + + | Address | [address] | | | [place] [address] | + + + | Home Phone [...] Author | [facility] | | | and Kirkana | + + + | Organization | [facility] | [...] [place], [place] | | | | | [address] | | + + + + + | Mirza Bee | ECON | [address] | | | | | [place], [place] | | | | | [address] | | + + + + + Care Team Providers + +------+ + | Care Baseball Coach Name | Role | Phone | [...] | | | | | | [address] | [place] | | | | | | [place] | [facility] | | | | | | [place], | [place], [place] | | | | | | [place] [address] | [address] Phone: | | | | | | Phone: | [phone] | | | | | | [phone] | Fax: | | | | | | Fax: | [phone] | | | | | | [phone] | | +--------+--------+ + + + + [...] | (Primary Dx) | | | | [place], | [place] | | | | | [place] [address] | [place] [address] | | | | | [phone] | [phone] | | | | | | | [...] +--------+ + + | AMB REFERRAL TO [facility] [place] | Routin | Sleep disturbance | Ordered: 11/19/2017 | | SLEEP DISO | e | | | + +--------+ + + as of this encounter Visit Diagnoses + + | Diagnosis | + + | Sleep disturbance - Primary | + + | Sleep disturbance, unspecified | + +"
--- OUTSIDE RECORDS SUMMARY | ~2018-02-08 | XMS | Encounter Summary ---
Demographics + + + | Address | [address] | | | [place] [address] | + + + | Home Phone [...] | Author | [facility] | | | and Kirkana | + + + | Organization | [facility] | | | and [...] [place], [place] | | | | | [address] | | + + + + + | Mirza Bee | ECON | [address] | | | | | [place], [place] | | | | | [address] | | + + + + + Care Team Providers + +------+ + | Care Explosive Ordnance Disposal Technician Name | Role | Phone | [...] | | | | | | [address] | [place] | | | | | | [place] | [facility] | | | | | | [place], | [place], [place] | | | | | | [place] [address] | [address] Phone: | | | | | | Phone: | [phone] | | | | | | [phone] | Fax: | | | | | | Fax: | [phone] | | | | | | [phone] | | +--------+--------+ + + + + Encounter Details +--------+ + + + + | Date | Type | Department | Care Team | Description | +--------+ + + + + | 11/19/ | Orders Only | [facility] | Gurmeet Vargas | Sleep disturbance | | 2018 | | PULMONARY [address] | MD [address] | (Primary Dx) | | | | [place], | [place] | | | | | [place] [address] | [place] [address] | | | | | [phone] | [phone] | | | | | | | [...] +--------+ + + | AMB REFERRAL TO [facility] [place] | Routin | Sleep disturbance | Ordered: 11/19/2017 | | SLEEP DISO | e | | | + +--------+ + + as of this encounter Visit Diagnoses + + | Diagnosis | + + | Sleep disturbance - Primary | + + | Sleep disturbance, unspecified | + +"
--- OUTSIDE RECORDS SUMMARY | ~2018-02-08 | XMS | Encounter Summary ---
Demographics + + + | Address | [address] | | | [place] [address] | + + + | Home Phone [...] Author | [facility] | | | and Kirkana | + + + | Organization | [facility] | | | and Kirkana [...] [place], [place] | | | | | [address] | | + + + + + | Mirza Bee | ECON | [address] | | | | | [place] | | | | | [address] | | + + + + + Care Team Providers + +------+ + | Care Unemployment Claims Adjudicator Name | Role | Phone | + [...] | | | | pulmonary | [facility] | [address] | | | | | disease, | [address] | [place] | | | | | unspecified | [place], | [place] | | | | | ([facility]) | [place] | [address] Phone: | | | | | Procedures | [address] | [phone] | | | | | FU | Phone: | Fax: | | | | | | [phone] | [phone] | | | | | | Fax: | | | | | | | [phone] | | + +--------+ + + + + Encounter Details +--------+---------+ + + + | Date | Type | Department | Care Team | Description | +--------+---------+ + + + | 11/19/ | Office | [facility] | Gurmeet Vargas | Chronic obstructive | | 2018 | Visit | PULMONARY [address] | MD [address] | bronchitis (HCC) | | | | [place], | [place] | (Primary Dx); | | | | [place] [address] | [place] [address] | History of lung | | | | [phone] | [phone] | cancer; Chronic | | | | [...] stayed in the hospital 11 days at [facility] in [place] in June 2017, she says. After dave [...] She tells me she sees him at [facility], so it is not in our [...]
--- OUTSIDE RECORDS SUMMARY | ~2018-02-08 | XMS | Clinical Summary ---
Demographics + + + | Address | [address] | | | [place] [address] | + + + | Home Phone [...] Providers + +------+ + | Care Art Objects Repairer Name | Role | Phone | + +------+ + | Ayana Taylor MD | PP | | + +------+ + Source Comments KARISHMA is fully live on both [facility] and [facility] InPatient.[facility] Allergies Not on File Current Medications [...] | | | + +--------+ +--------+-------+---------+ | SADDLE TREE STITCHER MEDICAID | SADDLE TREE STITCHER | xxxxxxxx | Medica | | | [...] | | al/Fam | | 1945 | [phone] | [place] [address] | | | jana | | | [address] | | + +--------+ +--------+ + +"
--- OUTSIDE RECORDS SUMMARY | ~2018-02-08 | XMS | Clinical Summary ---
Demographics + + + | Address | [address] | | | [place] [address] | + + + | Home Phone | | + + + | Preferred Language | Unknown | + + + | Marital Status | | + + + | Scientology Affiliation | Unknown | + + + | Race | Unknown | + + + | Ethnic Group | Unknown | + + + Author + + + | Author | [employer] | + + + | Organization | [facility] | + + + | Address | Unknown | + + + | Phone | Unavailable | + + + Support + + +---------+ + | Name | Relationship | Address | Phone | + + +---------+ + | Mirza Bee | ECON | Unknown | | + + +---------+ + Care Team Providers + +------+ + | Care Carpet Or Rug Layer Helper Name | Role | Phone | [...] | | | | | Place [place] | | | | | | [address] | | | | | | | | +--------+---------+ + + + | 04/08/ | Office | | Santosh Sumner, | | | 2017 | Visit | | [facility] [address] | | | | | | [address] | | | | | | [place] [address] | | | | | | [phone] | | | | | | | [...] | N/A: | | | 08/20/ | [id number] | | Dbx 2.5ml - | | Spine | | | 2014 | | | [id number]: | | Cervic | | | | /[id number] | | Qty: 1 on 01/19/2013 by | | al | | | | [id number] | | Silviano Cabrera MD | | | | | | [id number] | | | | | | | | 8 / | + +------+--------+ +--------+--------+--------+ | Cage Triad Allograft | | N/A: | | | 08/16/ | 388641 | | [id number] - | | Spine | | | 2018 | 7 | | [id number]: Qty: 1 | | Cervic | | | | /09542 | | on 01/19/2013 by Tim Cabrera | | | | 8-185 | | MD Silviano | | | | | | / | + +------+--------+ +--------+--------+--------+ | Cage Triad Allograft 6mm - | | N/A: | | | 06/23/ | [id number] | | [id number]: Qty: 1 | | Spine | | | 2018 | 6 | | on 01/19/2013 by Rick, | | Cervic | | | | /40576 | | MD Silviano | | al | | | | 0-206 | | | | | | | | / | + +------+--------+ +--------+--------+--------+ | Screw Vectra Self Drilling | | N/A: | | | | 04.613 | | Variable Angle 4.0x14mm - | | Spine | | | | .514 | | [id number]: Qty: 2 on | | Cervic | | | | /59980 | | 01/19/2013 by Silviano Cabrera, | | al | | | | 514 / | | | | | | | | | + +------+--------+ +--------+--------+--------+ | Screw Vectra Self Drilling | | N/A: | | | | 04.613 | | Variable Angle 5drt91pg - | | Spine | | | | .516 | | [id number]: Qty: 2 on | | Cervic | | | | /09176 | | 01/19/2013 by Silviano Cabrera, | | al | | | | 516 / | | MD | | | | | | | + +------+--------+ +--------+--------+--------+ | Screw Vectra Self Drilling | | N/A: | | | | 04.613 | | Fixed Angle 4.0x14mm - | | Spine | | | | .714 | | [id number]: Qty: 2 on | | Cervic | | | | /48743 | | 01/19/2013 by Silviano Cabrera, | | al | | | | 714 / | | MD | | | | | | | + +------+--------+ +--------+--------+--------+ | Plate Vectra Cervical 30mm - | | N/A: | | | | 04.613 | | [id number]: Qty: 1 on | | Spine | | | | .130 | | 01/19/2013 by Silviano Cabrera, | | Cervic | | | | /30262 | | MD | | al | | | | 130 / | + +------+--------+ +--------+--------+--------+ | Allograft Putty Freeze Dried | | N/A: | | | 10/20/ | 535897 | | Dbx 2.5ml - | | Spine | | | 2014 | | | [id number]: | | Cervic | | | | /95637 | | Qty: 1 on 04/06/2013 by | | al | | | | 159482 | | Silviano Cabrera MD | | | | | | 806538 | | | | | | | | 3 / | + +------+--------+ +--------+--------+--------+ | Screw Vuepoint Post Cerv | | N/A: | | | | 482130 | | 3.5x12mm - [id number]: | | Spine | | | | 2 | | Qty: 3 on 04/06/2013 by | | Cervic | | | | /85569 | | Silviano Cabrera MD | | al | | | | 12 / | + +------+--------+ +--------+--------+--------+ | Screw Vuepoint Post Cerv | | N/A: | | | | 011975 | | 3.5x14mm - [id number]: | | Spine | | | | 4 | | Qty: 1 on 04/06/2013 by | | Cervic | | | | /74924 | | Silviano Cabrera MD | | al | | | | 14 / | + +------+--------+ +--------+--------+--------+ | Srini Vuepoint 3.5x60mm - | | N/A: | | | | 495329 | | [id number]: Qty: 1 on | | Spine | | | | 0 | | 04/06/2013 by Silviano Cabrera, | | Cervic | | | | /48969 | | MD | | al | | | | 60 / | + +------+--------+ +--------+--------+--------+ | Screw Vuepoint Post Cerv Set | | N/A: | | | | 298919 | | Tulip & [place] - | | Spine | | | | 0 | | [id number]: Qty: 4 on | | Cervic | | | | /04831 | | 04/06/2013 by Silviano Cabrera, | | al | | | | 00 / | | MD | | | | | | | + +------+--------+ +--------+--------+--------+ | Allograft Osteocell 10cc | | | | | 08/25/ | [id number] | | [id number] - | | | | | 2017 | 0 | | [id number]: Qty: 1 | | | | | | /81962 | | on 04/06/2013 | | | | | | 1542 / | + +------+--------+ +--------+--------+--------+ | Allograft Putty Freeze Dried | | N/A: | | | 11/10/ | [id number] | | Demineralized Bone Matrix Dbx | | Spine | | | 2014 | | | 1ml - | | Cervic | | | | /14945 | | [id number]: | | al | | | | [id number] | | Qty: 1 on 04/06/2013 by | | | | | | [id number] | | Silviano Cabrera MD | | | | | | 1 / | + +------+--------+ +--------+--------+--------+ | Graft Sponge Kit Bone Infuse | | | MEDTRONIC | | | 592427 | | Medium 56ml - | | | | | | 0 / | | [id number]: Qty: 1 on | | | | | | /M1112 | | 03/29/2014 by Silviano Cabrera, | | | | | | 05AA6 | | | | | | | | | + +------+--------+ +--------+--------+--------+ | Triad Alif Allograft | | | NUVASIVE | | 08/02/ | 009613 | | [id number]: Qty: 1 on | | | | | 2018 | 4 | | 03/29/2014 by Silviano Cabrera, | | | | | | /94911 | | MD | | | | | | 0-065 | | | | | | | | / | + +------+--------+ +--------+--------+--------+ | Screw Brigade 5.5x25mm - | | | NUVASIVE | | | 750201 | | [id number]: Qty: 2 on | | | | | | / | | 03/29/2014 by Silviano Cabrera, | | | | | | | | MD | | | | | | | + +------+--------+ +--------+--------+--------+ | Screw Brigade 5.5x30mm - | | | NUVASIVE | | | 072418 | | [id number]: Qty: 4 on | | | | | | 0 / / | | 03/29/2014 by Silviano Cabrera, | | | | | | | | MD | | | | | | | + +------+--------+ +--------+--------+--------+ | Evelyne Batista Allograft | | | NUVASIVE | | 07/14/ | 977796 | | [id number] - | | | | | 2012 | 2 / / | | [id number]: Qty: 1 on | | | | | | | | 03/29/2014 by Silviano Cabrera, | | | | | | | | MD | | | | | | | + +------+--------+ +--------+--------+--------+ | Svetlana Iraheta 5.5x35mm - | | | NUVASIVE | | | [id number] | | [id number]: Qty: 2 on | | | | | | / | | 03/29/2014 by Silviano Cabrera, | | | | | | | | MD | | | | | | | + +------+--------+ +--------+--------+--------+ | Allograft Block Extra Large | | N/A: | NUVASIVE | | 09/27/ | [id number] | | Formagraft Large - | | Back | | | 2018 | / | | [id number]: Qty: 1 on | | | | | | /FG-14 | | 03/29/2014 by Silviano Cabrera, | | | | | | 13 | | MD | | | | | | | + +------+--------+ +--------+--------+--------+ | Graft Sponge Kit Bone Infuse | | N/A: | MEDTRONIC | | 08/27/ | [id number] | | Large 8ml - | | Back | | | 2015 | 0 / | | [id number]: Qty: 1 on | | | | | | /M1112 | | 03/29/2014 by Silviano Cabrera, | | | | | | 06AAY | | | | | | | | | + +------+--------+ +--------+--------+--------+ | Allograft Freeze Dried | | N/A: | LIFENET | | 11/13/ | [id number] | | Demineralized Cancellous Mix | | Spine | HEALTH | | 2016 | T | | Ic Graft Chamber 15cc - | | Lumbar | | | | /79843 | | [id number]: Qty: | | | | | | 57-303 | | 1 on 03/31/2014 by Rick, | | | | | | 1 / | | MD Silviano | | | | | | | + +------+--------+ +--------+--------+--------+ | Graft Sponge Kit Bone Infuse | | N/A: | MEDTRONIC | | 04/01/ | [id number] | | Medium 56ml - | | Spine | | | 2014 | 0 | | [id number]: Qty: 1 | | Lumbar | | | | /[id number] | | on 03/31/2014 by Rick, | | | | | | 05AAW | | MD Silviano | | | | | | / | + +------+--------+ +--------+--------+--------+ | Allograft Freeze Dried | | N/A: | LIFENET | | 11/01/ | [id number] | | Demineralized Cancellous Mix | | Spine | HEALTH | | 2016 | T | | Ic Graft Chamber 15cc - | | Lumbar | | | | /68768 | | [id number]: Qty: | | | | | | 37-301 | | 1 on 03/31/2014 by Rick, | | | | | | 1 / | | MD Silviano | | | | | | | + +------+--------+ +--------+--------+--------+ | Screw Precept Shank Mod | | N/A: | NUVASIVE | | | [id number] | | 7.5x50mm - [id number]: | | Spine | | | | 0 / / | | Qty: 4 on 03/31/2014 by | | Lumbar | | | | | | Silviano Cabrera MD | | | | | | | + +------+--------+ +--------+--------+--------+ | Screw Precept Shank Mod | | N/A: | NUVASIVE | | | [id number] | | 6.5x50mm - [id number]: | | Spine | | | | 0 / / | | Qty: 2 on 03/31/2014 by | | Lumbar | | | | | | Silviano Cabrera MD | | | | | | | + +------+--------+ +--------+--------+--------+ | Screw Locking For 6.25mm Srini | | N/A: | NUVASIVE | | | [id number] | | - [id number]: Qty: 6 | | Spine | | | | 1 / / | | on 03/31/2014 by Rick, | | Lumbar | | | | | | MD Silviano | | | | | | | + +------+--------+ +--------+--------+--------+ | Screw Tulip For 6.25mm Srini - | | N/A: | NUVASIVE | | | [id number] | | [id number]: Qty: 6 on | | Spine | | | | 2 / / | | 03/31/2014 by Silviano Cabrera, | | Lumbar | | | | | | | | | | | | | + +------+--------+ +--------+--------+--------+ | Allograft Freeze Dried | | N/A: | LIFENET | | 11/08/ | [id number] | | Demineralized Cancellous Mix | | Spine | HEALTH | | 2017 | T | | Ic Graft Chamber 15cc - | | Lumbar | | | | /09383 | | [id number]: Qty: | | | | | | 98-303 | | 1 on 03/31/2014 by Rick, | | | | | | 9 / | | MD Silviano | | | | | | | + +------+--------+ +--------+--------+--------+ | Allograft Freeze Dried | | N/A: | LIFENET | | 08/16/ | [id number] | | Demineralized Cancellous Mix | | Spine | HEALTH | | 2016 | T | | Ic Graft Chamber 10cc - | | Lumbar | | | | /77848 | | [id number]: Qty: | | | | | | 22-301 | | 1 on 03/31/2014 by Rick, | | | | | | 3 / | | MD Silviano | | | | | | | + +------+--------+ +--------+--------+--------+ | Allograft Freeze Dried | | N/A: | LIFENET | | 07/13/ | [id number] | | Demineralized Cancellous Mix | | Spine | HEALTH | | 2016 | T | | Ic Graft Chamber 5cc - | | Lumbar | | | | /43422 | | [id number]: Qty: | | | | | | 40-301 | | 1 on 03/31/2014 by Rick, | | | | | | 1 / | | MD Silviano | | | | | | | + +------+--------+ +--------+--------+--------+ | Srini Spherx Dual Ball Ti Dbr | | N/A: | NUVASIVE | | | [id number] | | Ii 42.5mm - | | Spine | | | | 5 / / | | [id number]: Qty: 2 on | | Lumbar | [...] | MA - PREMIERCARE | MA-PRE | [id number] | Medica | | | | FAMILY | [place] | | re | | | | | RE | | | | | | | FAMILY | | | | | + +--------+ +--------+-------+ + | MEDICAID | [place]ER | [id number] | | | [address] | | | N | | | | [place] | | | [place] | | | | [phone] | | | DIRECTOR OF OCCUPATIONAL THERAPY | | | | | + +--------+ [...] | | joann/Anant | | [phone] | [phone] | [place] | | | jana | | | [phone] | [phone] | + +--------+ +--------+ + +
[~2018-02-08 19:39] MED LIST changes: +ENOXAPARIN100 MG/1 M SUB-Q; +IRON325 M1 PO; +MIRTAZAPINE15 MG PO
--- OUTSIDE RECORDS SUMMARY | 2018-02-08 19:44 | XMS ---
PreManage Notification: TENA VILLALOBOS Security Clinical Support Specialist Events No recent Security Events currently on file CRITERIA MET - [facility] - 2 Visits in 30 Days CARE PROVIDERS [facility] 03/01/2015-Current VLADIMIR PHONE: Unknown Other Current PHONE: Unknown Mila has no Care Guidelines for this patient. [place] VISIT COUNT (12 MO.) [address] [place] [address] TOTAL 4 NOTE: Visits indicate total known visits. ED/UCC VISIT TRACKING (12 MO.) 02/08/2018 19:40 [place] TYPE: Emergency COMPLAINT: - FEVER,WEAK 01/25/2018 13:12 [place] TYPE: Emergency COMPLAINT: - SOB 06/23/2017 08:42 [place] TYPE: Emergency COMPLAINT: - PNEUMONIA 06/19/2017 08:03 [place] TYPE: Emergency COMPLAINT: - FLULIKE SYMPTOMS INPATIENT VISIT TRACKING (12 MO.) No inpatient visits to display in this time frame [email or web address]
--- NOTE | 2018-02-08 22:07 | EKG ---
[facility] [address] [facility] [place] [address] [address] Sin[address] Nonspecific [address] abnormality Abnormal ECG When compared with ECG of 25-JAN-2018 13:38, Incomplete left bundle branch block is no longer present Confirmed by ROHITH JACKSON MD ([id number]) on 02/08/2018 10:07:28 PM Electronically Signed By: ROHITH JACKSON MD 02/08/18 2207 PATIENT NAME: TENA VILLALOBOS Electrocardiogram DATE OF : 43 PHYSICIAN: ROHITH JACKSON MD REPORT #: [id number] REPORT IS CONFIDENTIAL AND NOT TO BE RELEASED WITHOUT AUTHORIZATION
[2018-02-12] MEDS ORDERED: LEVAQUIN500 MG PO (08:53)
== END 2018-02-12 12:55 | disposition home or self-care (01) | DRG 871 ==
LOC: ED 19:39 → CCU 23:41 → MS 02-09 17:50
PROVIDERS: ADMIT Internal Medicine
DX: A41.52 Sepsis due to Pseudomonas (principal); J18.9 Pneumonia, unspecified organism; C34.90 Malignant neoplasm of unspecified part of unspecified bronchus or lung; F51.04 Psychophysiologic insomnia; J44.9 Chronic obstructive pulmonary disease, unspecified; M06.9 Rheumatoid arthritis, unspecified; E03.9 Hypothyroidism, unspecified; E78.5 Hyperlipidemia, unspecified; K21.9 Gastro-esophageal reflux disease without esophagitis; F39 Unspecified mood [affective] disorder; G47.00 Insomnia, unspecified; Z16.24 Resistance to multiple antibiotics; Z86.718 Personal history of other venous thrombosis and embolism; Z79.01 Long term (current) use of anticoagulants
CPT/HCPCS: 36415; 70450; 71045; 71046; 80048; 80053; 81001; 83605; 83735; 83880; 84484; 85025; 85610; 85730; 87040; 87070; 87205; 93005; 93010; 94640; 94667; 94668; 97116; 97161; J0692; J1170; J1650; J1956; J2405; J3475; J7030; J7120; J7512

== ENCOUNTER 2018-08-02 14:36 | Emergency (ER) | payer MEDICARE, OTHER ==
[~2018-08-02] VITALS: Ht 157.5 cm; Wt 72.3 kg
[~2018-08-02 14:36] MED LIST changes: +BREO ELLIPTA I1 EACH INH; +DALIRESP500 MCG PO; +KEFLEX500 MG PO; +LEVAQUIN500 MG PO; +WARFARIN SODIUM5 MG PO
--- OUTSIDE RECORDS SUMMARY | 2018-08-02 14:40 | XMS ---
PreManage Notification: TENA VILLALOBOS Security Kennel Keeper Events No recent Security Events currently on file CRITERIA MET - TIM CARE PROVIDERS Duncan Contreras Geology Teacher/Plug Cutting Machine Operator 03/01/2012-[facility]: [phone] [facility]Tiff Vaughan PHONE: Unknown Duncan Contreras Primary Care 03/01/2012-Current PHONE: [phone] LOBO Vaughan Primary Care 03/01/2015-Tiff GILBERT PHONE: Unknown Other Current PHONE: Unknown Mila has no Care Guidelines for this patient. EAlex VISIT COUNT (12 MO.) 3 [facility] TOTAL 3 NOTE: Visits indicate total known visits. ED/UCC VISIT TRACKING (12 MO.) 08/02/2018 14:36 [facility] [place] TYPE: Emergency COMPLAINT: - L SHOULDER PAIN/NO INJURY 02/08/2018 19:40 [facility] [place] TYPE: Emergency COMPLAINT: - FEVER,WEAK 01/25/2018 13:12 [facility] [place] TYPE: Emergency COMPLAINT: - SOB INPATIENT VISIT TRACKING (12 MO.) 02/08/2018 23:41 [facility] [place] TYPE: Medical Surgical COMPLAINT: - SEPSIS/PNEUMONIA DIAGNOSES: - Sepsis due to Pseudomonas - Psychophysiologic insomnia - Insomnia, unspecified - Malignant neoplasm of unspecified part of unspecified bronchus or lung - Unspecified mood [affective] disorder - Rheumatoid arthritis, unspecified - computer terminal operator (current) use of anticoagulants - Hypothyroidism, unspecified - Resistance to multiple antibiotics - Pneumonia, unspecified organism - Hyperlipidemia, unspecified - Sepsis, unspecified organism - Gastro-esophageal reflux disease without esophagitis - Personal history of other venous thrombosis and embolism - Chronic obstructive pulmonary disease, unspecified 01/25/2018 13:[address] [facility] [place] TYPE: Medical Surgical COMPLAINT: - PULMONARY EMBOLISM DIAGNOSES: - Hyperlipidemia, unspecified - Essential (primary) hypertension - Spinal stenosis, site unspecified - residential (current) use of systemic steroids - Other pulmonary embolism without acute cor pulmonale - Chronic obstructive pulmonary disease, unspecified - Rheumatoid arthritis, unspecified - Personal history of transient ischemic attack (TIA), and cerebral infarction without residual deficits - residential (current) use of antithrombotics/antiplatelets - Nicotine dependence, unspecified, uncomplicated - Hypothyroidism, unspecified - Psychophysiologic insomnia - Gastro-esophageal reflux disease without esophagitis - Unspecified mood [affective] disorder - Malignant neoplasm of unspecified part of unspecified bronchus or lung - Other watermelon inspector (current) drug therapy [email or web address]
[2018-08-02] MEDS ORDERED: PREDNISONE20 MG PO (17:32)
[2018-08-02] MEDS ORDERED: NORCO 5-325 TA1 EACH PO (17:32)
== END 2018-08-02 18:21 | disposition home or self-care (01) ==
LOC: ED 14:36
DX: M75.52 Bursitis of left shoulder (principal); Z86.73 Personal history of transient ischemic attack (TIA), and cerebral infarction without residual deficits; I10 Essential (primary) hypertension; J44.9 Chronic obstructive pulmonary disease, unspecified; Z87.891 Personal history of nicotine dependence; Z79.899 Other long term (current) drug therapy; Z79.01 Long term (current) use of anticoagulants
CPT/HCPCS: 20610; 73030; 99283-25; J7512

== ENCOUNTER 2018-08-18 14:33 | Inpatient (IN) | payer MEDICARE, OTHER ==
[~2018-08-18] VITALS: Ht 157.5 cm; Wt 70.1 kg
--- OUTSIDE RECORDS SUMMARY | ~2018-08-18 | XMS | Encounter Summary ---
Demographics + + + | Address | [address] | | | [place] [address] | + + + | Home Phone | | + + + | Preferred Language | Unknown | + + + | Marital Status | | + + + | Alevism Affiliation | Unknown | + + + | Race | Unknown | + + + | Ethnic Group | Unknown | + + + Author + + + | Author | [employer] | + + + | Organization | [facility] | + + + | Address | Unknown | + + + | Phone | Unavailable | + + + Support + + +---------+ + | Name | Relationship | Address | Phone | + + +---------+ + | Mirza Bee | ECON | Unknown | | + + +---------+ + Care Team Providers + +------+ + | Care Electrode Cleaning Machine Operator Name | Role | Phone | + +------+ + | Davis Ivan MD | PCP | Unavailable | + +------+ + Encounter Details +--------+ + + + + | Date | Type | Department | Care Team | Description | +--------+ + + + + | 05/21/ | Documentati | Black | Fredy Morris DO | | | 2018 | on Only | [facility] | [address] | | | | | [address] | [place] | | | | | [place], [place] | [address] | | | | | [address] | | | | | | [phone] | | | +--------+ + + + + Social History + +-------+ +--------+------+ | Tobacco Use | Types | Packs/Day | Years | Date | | | | | Used | | + +-------+ +--------+------+ | Former Smoker | | 1 | 58 | | + +-------+ +--------+------+ + +---+---+---+ | Smokeless Tobacco: | | | | | Never Used | | | | + +---+---+---+ + + | Comments: johnny July 2011 | + + + + +---------+ + [...] + + + as of this encounter Progress Notes Asha Valdivia - 05/21/2018 10:47 AM PSTReferral melania. in this encounter Plan of Treatment +--------+---------+ + + + | Date | Type | Specialty | Care Team | Description | +--------+---------+ + + + | 10/18/ | Office | Rheumatology | Santosh [place], | | | 2018 | Visit | | [place] [address] | | | | | | [facility] | | | | | | [place] [address] | | | | | | [phone] | | | | | | | | +--------+---------+ + + + as of this encounter Visit Diagnoses Not on filein this encounter"
--- OUTSIDE RECORDS SUMMARY | ~2018-08-18 | XMS | Encounter Summary ---
Demographics + + + | Address | [address] | | | [place] [address] | + + + | Home Phone | | + + + | Preferred Language | Unknown | + + + | Marital Status | | + + + | Buddhist Affiliation | Unknown | + + + | Race | Unknown | + + + | Ethnic Group | Unknown | + + + Author + + + | Author | [employer] | + + + | Organization | [facility] | + + + | Address | Unknown | + + + | Phone | Unavailable | + + + Support + + +---------+ + | Name | Relationship | Address | Phone | + + +---------+ + | Mirza Bee | ECON | Unknown | | + + +---------+ + Care Team Providers + +------+ + | Care Shift Supervisor Name | Role | Phone | + +------+ + | Davis Ivan MD | PCP | Unavailable | + +------+ + Reason for Visit + + + | Reason | Comments | + + + | Medication Refill | | + + + Encounter Details +--------+--------+ + + + | Date | Type | Department | Care Team | Description | +--------+--------+ + + + | 07/02/ | Refill | [facility] | Abeba Douglas MD | | | 2019 | | Rheumatology [address] | | | [address] | [address] [place] | | | | | [place] [address] | [address] | | | | | [phone] | | | +--------+--------+ + + + Social History + +-------+ [...] | 2018 | Visit | | [place] [address] | | | | | | [facility] | | | | | | [place] [address] | | | | | | [phone] | | | | | | | | +--------+---------+ + + + as of this encounter Visit Diagnoses Not on filein this encounter"
--- OUTSIDE RECORDS SUMMARY | ~2018-08-18 | XMS | Clinical Summary ---
Demographics + + + | Address | [address] | | | [place] [address] | + + + | Home Phone | | + + + | Preferred Language | Unknown | + + + | Marital Status | | + + + | Christianity Affiliation | Unknown | + + + | Race | Unknown | + + + | Ethnic Group | Unknown | + + + Author + + + | Author | [facility] | + + + | Organization | [facility] | + + + | Address | Unknown | + + + | Phone | Unavailable | + + + Support + + +---------+ + | Name | Relationship | Address | Phone | + + +---------+ + | Mirza Bee | ECON | Unknown | | + + +---------+ + Care Team Providers + +------+ + | Care Art Professor Name | Role | Phone | + +------+ + | Caitlin Chino MD | PP | | + +------+ + Allergies + + + + + + | Active Allergy | Reactions | Severity | Noted | Comments | | | | | Date | | + + + + + + | Mirtazapine | Other (See Comments) | Medium | 10/09/19 | | | | | | 18 | | + + + + + + | Trazodone | Hives | High | 10/09/19 | | | | | | 18 | | + + + + + + Current Medications + + +--------+---------+------+------+-------+ | Prescription | Sig. | Disp. | Refills | Star | End | Statu | | | | | | t | Date | s | | | | | | Date | | | + + +--------+---------+------+------+-------+ | PLAVIX 75 MG | Take 1 tablet by | | | 04/02 | | Activ | | tablet | mouth daily. | | | 07/21 | | e | | | | | | 12 | | | + + +--------+---------+------+------+-------+ | levothyroxine | Take 1 tablet by | | | 04/01 | | Activ | | (SYNTHROID, | mouth daily. | | | 02/18 | | e | | LEVOTHROID) 75 MCG | | | | 12 | | | | tablet | | | | | | | + + +--------+---------+------+------+-------+ | predniSONE | Take 1 tablet by | | | 10/2 | | Activ | | (DELTASONE) 5 MG | mouth 2 (two) times | | | 2/20 | | e | | tablet | daily. | | | 12 | | | + + +--------+---------+------+------+-------+ | simvastatin | Take 1 tablet by | | | 10/0 | | Activ | | (ZOCOR) 40 MG tablet | mouth daily. | | | 3/20 | | e | | | | | | 12 | | | + + +--------+---------+------+------+-------+ | venlafaxine | Take 1 capsule by | | | 11/1 | | Activ | | (EFFEXOR-XR) 75 MG | mouth daily. | | | 2/20 | | e | | 24 hr capsule | | | | 12 | | | + + +--------+---------+------+------+-------+ | omeprazole | Take 1 capsule by | | | 11/2 | | Activ | | (PRILOSEC) 20 MG | mouth 2 (two) times | | | 0/20 | | e | | capsule | daily. | | | 12 | | | + + +--------+---------+------+------+-------+ | Cholecalciferol | Take 1 capsule by | | | | | Activ | | (VITAMIN D) 2000 | mouth daily. | | | | | e | | UNITS CAPS | | | | | | | + + +--------+---------+------+------+-------+ | Ferrous Sulfate | Take 1 tablet by | | | | | Activ | | (IRON) 325 (65 FE) | mouth daily. | | | | | e | | MG TABS | | | | | | | + + +--------+---------+------+------+-------+ | Magnesium 100 MG | Take 1 tablet by | | | | | Activ | | CAPS | mouth daily. | | | | | e | + + +--------+---------+------+------+-------+ | albuterol | Take 2.5 mg by | | | | | Activ | | (PROVENTIL) (2.5 | nebulization 3 | | | | | e | | MG/3ML) 0.083% | (three) times daily. | | | | | | | nebulizer solution | History of smoking, | | | | | | | | COPD, and asthma | | | | | | + + +--------+---------+------+------+-------+ | afatinib dimaleate | Take 30 mg by mouth | | | | | Activ | | (GILOTRIF) 30 MG | every morning before | | | | | e | | tablet | breakfast. | | | | | | + + +--------+---------+------+------+-------+ | fluticasone | Inhale 1 puff into | | | | | Activ | | furoate-vilanterol | the lungs daily. | | | | | e | | (BREO ELLIPTA) | | | | | | | | 100-25 mcg/inh | | | | | | | | inhaler | | | | | | | + + +--------+---------+------+------+-------+ | tiotropium | Inhale 2 puffs into | | | | | Activ | | (SPIRIVA RESPIMAT) | the lungs daily. | | | | | e | | 2.5 MCG/ACT inhaler | | | | | | | + + +--------+---------+------+------+-------+ | ranitidine | Take 300 mg by mouth | | | | | Activ | | (ZANTAC) 300 MG | nightly. | | | | | e | | tablet | | | | | | | + + +--------+---------+------+------+-------+ | pantoprazole | Take 40 mg by mouth | | | | | Activ | | (PROTONIX) 40 MG | every morning before | | | | | e | | tablet | breakfast. | | | | | | + + +--------+---------+------+------+-------+ | furosemide (LASIX) | Take 20 mg by mouth | | | | | Activ | | 20 MG tablet | daily. | | | | | e | + + +--------+---------+------+------+-------+ | mirtazapine | Take 15 mg by mouth | | | | | Activ | | (REMERON) 15 MG | nightly. | | | | | e | | tablet | | | | | | | + + +--------+---------+------+------+-------+ | Melatonin 2.5 MG | Take by mouth. | | | | | Activ | | CAPS | | | | | | e | + + +--------+---------+------+------+-------+ | | Take 1 tablet by | | | | | Activ | | multivitamin-mineral | mouth daily. | | | | | e | | s (OCUVITE-LUTEIN) | | | | | | | | tablet | | | | | | | + + +--------+---------+------+------+-------+ | enoxaparin | Inject into the | | | | | Activ | | (LOVENOX) 100 MG/ML | skin every 12 | | | | | e | | SOLN | (twelve) hours. | | | | | | + + +--------+---------+------+------+-------+ | methotrexate 2.5 | Take 8 tablets by | 32 | 2 | 07/02 | | Activ | | MG | mouth once a week. | tablet | | 02/18 | | e | | tabletIndications: | | | | 19 | | | | Rheumatoid Arthritis | | | | | | | + + +--------+---------+------+------+-------+ Active Problems + + + | Problem | Noted Date | + + + | Pulmonary embolism (HCC) | 05/03/2018 | + + + | Hyperlipidemia | 04/15/2018 | + + + + + | Overview: Overview: | | on simvastatin | + + + + + | Hypertension | 04/15/2018 | + + + + + | Overview: Overview: | | on clonidine and lisinopril | + + + + + | Hypothyroidism | 04/15/2018 | + + + | Fungus disease | 04/15/2018 | + + + + + | Overview: Overview: | | sputum culture positive for SCOPULARIOPSIS SPECIES | + + + + + | High risk medications (not anticoagulants) long-term use | 07/08/2016 | + + + | Difficulty in swallowing | 11/07/2015 | + + + | Recurrent pneumonia | 11/07/2015 | + + + | Radiation pneumonitis (HCC) | 03/08/2015 | + + + | 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 Nodule was | | considered likely infectious/inflammatory as the patient was | | immunosuppressed , on methotrexate for rheumatoid arthritis. 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 3.PET/CT | | scan 08/11/2013 showed increased size of the right lung lesion | | with a maximum SUV of 6.26. In the right hilar region, a 0.9 cm | | lymph node was present with maximum SUV of 4.46 consistent with | | metastatic disease 4. seen by Dr. Beltran , thoracic surgeon at | | [facility] for consideration of bronchoscopy, right | | thoracoscopy, thoracic lymphadenectomy to rule out N2 disease, | | probable lower lobectomy, possible thoracotomy . Date: September 16, | | 2013,5. Right minimally invasive lower lobe lobectomy and | | minimally invasive thoracoscopic lymphadenectomy : Dr. José Miguel beltran | | : 09/16/13:3.2x 3.0x1.7 cm tumor, squamous carcinoma, focally | | invades the visceral pleura without involvement of visceral | | pleural surface, all margins uninvolved, all 10 lymph nodes | | negative for malignancy, T2aN0, stage IB.6. Presented with an | | enlarging right upper lobe lung nodule in June 2014. PET CT | | scan showed an SUV of 2.7 and a large right necrotic hilar lymph | | node with an SUV of 12.4.7. Bronchoscopy and EBUS guided FNA of | | right hilar lymph node: 07/11/2014: Positive for malignant cells. | | Keratinizing squamous cell carcinoma8. Completed concurrent | | chemoradiation with weekly carboplatin and Taxol in August 20149. | | Admitted to [facility] on September 27, 2014 for | | right-sided chest pain secondary to acute bronchitis.10. CT chest | | [facility] on September 28, 2014 demonstrated persistent | | 32 mm x 26 mm x 27 mm Right Hilar Mass.Last Assessment & Plan: | | Stephanie returned to the [facility] | | on November 09, 2014 for follow up of her locally recurrent RIGHT | | Lung cancer. Interval history is notable for the fact that Thea | | was admitted to [facility] in [place], [place] for | | acute exacerbation of chronic bronchitis. During her | | hospitalization there, a chest CT was performed demonstrating a | | persistent 32 x 26 mm right hilar mass. These images were | | reviewed subsequently at the [facility] on their PACS | | system. Radiographic abnormality in the right hilum may represent | | persistent tumor or simply residual, non viable tissue following | | combined modality therapy.Since therapeutic effect of | | irradiation may be delayed, I recommended waiting an additional | | month before proceeding with repeat PET scan to assess for | | persistent disease. PET/CT schedule at [facility] on December 21, 2014 | | with follow up at [facility] the following week. | + + + + + | Pulmonary nodules | 04/17/2014 | + + + + + | Overview: Overview: | | Right upper lobe nodule enlarging-> 3mm to 7mm on scan 12/2013 | | Due for repeat scan 07/2014 | + + + + + | Spinal stenosis in cervical region | 08/17/2013 | + + + | MARCE (obstructive sleep apnea) | 08/02/2013 | + + + | Osteoporosis | 06/09/2013 | + + + | Rheumatoid arthritis (HCC) | 03/30/2013 | + + + + + | Overview: Overview: | | ICD-10 Record update | + + + + + | Lumbar radicular pain | 05/11/2012 | + + + + + | Last Assessment & Plan: In summary, this is a 67 year old | | female who has low back pain with right L5 radicular pain. Her | | lumbar MRI showed degenerative disk and facet disease with | | moderate central stenosis at L4-5 and foraminal narrowing on the | | left at L4-5 and right L5-S1. We reviewed her MRI and discussed | | treatment options. She has tried and failed other conservative | | measures. Her symptoms are most likely related to the narrowing | | noted at L5-S1 and possibly the stenosis noted at L4-5. She had | | no improvement from her right L5 target S1 transforaminal | | epidural steroid injection. She would like to try one more | | injection before f/u with Dr. Cabrera. She is a candidate for a | | lumbar epidural steroid injection. Will plan on a caudal with | | catheter lumbar epidural steroid injection targeting right L5 | | target S1 nerve roots under fluoroscopic guidance once we get | | permission to stop her Plavix. Plan, alternatives, risks and | | potential benefits of the procedure were explained to the patient | | in great detail. The patient understands that there is no | | guarantee they will get pain relief with this procedure. They | | also understand that if they do get pain relief that there is no | | way to know how long it will last. They also understand there is | | procedure itself which include but are not limited to infection, | | abscess, hematoma, nerve damage, paraplegia or quadriplegia, | | increased pain, spinal headache, stroke, and side effects from | | the medications themselves. The patient wishes to proceed. | + + + + + | DDD (degenerative disc disease), lumbar | 05/11/2012 | + + + + + | Last Assessment & Plan: Please see discussion under lumbar | | radicular pain. | + + + + + | Spondylolisthesis of lumbar region | 05/11/2012 | + + + + + | Last Assessment & Plan: Please see discussion under lumbar | | radicular pain. | + + + + + | Lumbar stenosis | 05/11/2012 | + + + + + | Last Assessment & Plan: Please see discussion under lumbar | | radicular pain. | + + + + + | Lumbar facet arthropathy | 05/11/2012 | + + + + + | Last Assessment & Plan: Please see discussion under lumbar | | radicular pain. | + + Encounters +--------+ + + + + | Date | Type | Specialty | Care Team | Description | +--------+ + + + + | 07/29/ | Documentati | | Jacqueline Govea, | Cyndy ([facility] | | 2018 | on Only | | FINANCIAL COMPLIANCE MANAGER | reports for | | | | | | 07/29/18) | +--------+ + + + + | 07/20/ | Office | | Abeba Douglas MD | Rheumatoid arthritis | | 2019 | Visit | | | with positive | | | | | | rheumatoid factor, | | | | | | involving | | | | | | unspecified site | | | | | | (HCC) (Primary Dx); | | | | | | DDD (degenerative | | | | | | disc disease), | | | | | | lumbar; | | | | | | Spondylolisthesis of | | | | | | lumbar region; | | | | | | Polyarthritis | +--------+ + + + + | 07/20/ | Telephone | | Abeba Douglas MD | | | 2019 | | | | | +--------+ + + + + | 07/02/ | Refill | | Abeba Douglas MD | | | 2018 | | | | | +--------+ + + + + | 06/09/ | Documentati | | Silvana Ceja, | Cyndy ([facility] | | 2018 | on Only | | FINANCIAL COMPLIANCE MANAGER | 05/13/2018) | +--------+ + + + + | 06/03/ | Telephone | | Elan, | | | 2018 | | | PARADISE Lord | | +--------+ + + + + | 05/21/ | Documentati | | Fredy Morris DO | | | 2017 | on Only | | | | +--------+ + + + + from Last 3 Months Immunizations + + + + | Name | Dates Previously Given | Next Due | + + + + | INFLUENZA PF, | 02/24/2018 | | | QUADRIVALENT | | | | (PED/ADOL/ADULT) | | | + + + + | INFLUENZA, PF | 04/10/2017, 2016, 03/02/2015 | | | TRIVALENT HIGH DOSE | | | | 65 YRS OR > | | | + + + + | Influenza, PF | 02/15/2014, 03/22/2013 | | | Recombinant, | | | | Trivalent (Flublok) | | | + + + + | Influenza, PF | 02/15/2014, 03/22/2013 | | | Trivalent | | | + + + + | Influenza, Trivalent | 03/02/2015, 02/15/2014, 03/24/2013, | | | W/Preservative | 04/13/2012, 02/20/2011, 03/05/2010, | | | | 02/07/2009, 04/21/2008, 03/18/2007, | | | | 05/05/2006, 05/16/2004, 05/04/2003 | | + + + + | Pneumococcal | 07/26/2014 | | | Conjugate 13-valent | | | + + + + | Pneumococcal | 02/25/2018, 03/01/2011, 06/12/2010, | | | Polysaccharide | 06/04/2005 | | | 23-valent | | | + + + + | Tdap | 02/25/2018, 06/25/2016 | | + + + + | Zoster (Live) | 04/13/2012 | | + + + + Family History + + +------+ + | Medical History | Relation | Name | Comments | + + +------+ + | Cancer | Father | | | + + +------+ + + +------+--------+ + | Relation | Name | Status | Comments | + +------+--------+ + | Father | | | | + +------+--------+ + Social History + +-------+ +--------+------+ | [...] + + + | Blood Pressure | 136/74 | 07/20/2018 12:21 PM PST | + + + + | Pulse | 80 | 07/20/2018 12:21 PM PST | + + + + | Temperature | 36.5 C (97.7 F) | 07/20/2018 12:21 PM PST | + + + + | Respiratory Rate | 17 | 07/17/2015 2:20 PM PST | + + + + | Oxygen Saturation | 98% | 04/07/2014 12:12 PM PST | + + + + | Inhaled Oxygen | - | - | | Concentration | | | + + + + | Weight | 71.8 kg (158 lb 6.4 | 07/20/2018 12:21 PM PST | | | oz) | | + + + + | Height | 157.5 cm (5' 2") | 07/17/2015 2:20 PM PST | + + + + | Body Mass Index | 28.97 | 07/20/2018 12:21 PM PST | + + + + Plan of Treatment +--------+---------+ + + + | Date | Type | Specialty | Care Team | Description | +--------+---------+ + + + | 10/18/ | Office | | Santosh Sumner, | | | 2018 | Visit | | [address] | | | | | | [facility] | | | | | | [place] [address] | | | | | | [phone] | | | | | | | | +--------+---------+ + + + + + + + + | Health Maintenance | Due Date | Last Done | Comments | + + + + + | Breast Cancer | | | | | Screening | 4 | | | | (Mammogram) | | | | + + + + + | Colon Cancer | | | | | Screening | 4 | | | | (Colonoscopy) | | | | + + + + + | DEXA SCAN SCREENING | | | | | | 9 | | | + + + + + | Vaccine: Zoster (2 | | 04/13/2012 | | | of 3) | 3 | | | + + + + + | Statin Therapy | | | | | (optimal intensity) | 8 | | | + + + + + | Vaccine: | | 02/25/2018, 06/25/2016 | | | Dtap/Tdap/Td (3 - | 8 | | | | Td) | | | | + + + + + | Vaccine: Influenza | Completed | 02/24/2018, 04/10/2017, | | | | | 2016, Additional history | | | | | exists | | + + + + + | Vaccine: | Completed | 02/25/2018, 07/26/2014, | | | Pneumococcal 65+ | | 03/01/2011, Additional history | | | High/Highest Risk | | exists | | + + [...] / Lot | + +------+--------+ +--------+--------+--------+ | Allograft Putty Freeze Dried | | N/A: | | | 08/20/ | [id number] | | Dbx 2.5ml - | | Spine | | | 2014 | | | [id number]: | | Cervic | | | | /[id number] | | Qty: 1 on 01/19/2013 by | | joann | | | | [id number] | | Silviano Cabrera MD | | | | | | [id number] | | | | | | | | 8 / | + +------+--------+ +--------+--------+--------+ | Cage Triad Allograft | | N/A: | | | 08/16/ | [id number] | | [id number] | | Spine | | | 2017 | 7 | | [id number]: Qty: 1 | | Cervic | | | | /[id number] | | on 01/19/2013 by Rick | Tim david | | | | 8-185 | | MD Silviano | | | | | | / | + +------+--------+ +--------+--------+--------+ | Cage Triad Allograft 6mm - | | N/A: | | | 06/23/ | [id number] | | [id number]: Qty: 1 | | Spine | | | 2018 | 6 | | on 01/19/2013 by Rick, | | Cervic | | | | /[id number] | | MD Silviano | | al | | | | 0-206 | | | | | | | | / | + +------+--------+ +--------+--------+--------+ | Screw Vectra Self Drilling | | N/A: | | | | 04.613 | | Variable Angle 4.0x14mm - | | Spine | | | | .514 | | [id number]: Qty: 2 on | | Cervic | | | | /[id number] | | 01/19/2013 by Silviano Cabrera, | | al | | | | 514 / | | MD | | | | | | | + +------+--------+ +--------+--------+--------+ | Screw Vectra Self Drilling | | N/A: | | | | 04.613 | | Variable Angle [id number] - | | Spine | | | | .516 | | [id number]: Qty: 2 on | | Cervic | | | | /[id number] | | 01/19/2013 by Silviano Cabrera, | | al | | | | 516 / | | MD | | | | | | | + +------+--------+ +--------+--------+--------+ | Screw Vectra Self Drilling | | N/A: | | | | 04.613 | | Fixed Angle 4.0x14mm - | | Spine | | | | .714 | | [id number]: Qty: 2 on | | Cervic | | | | /[id number] | | 01/19/2013 by Silviano Cabrera, | | al | | | | 714 / | | MD | | | | | | | + +------+--------+ +--------+--------+--------+ | Plate Vectra Cervical 30mm - | | N/A: | | | | 04.613 | | [id number]: Qty: 1 on | | Spine | | | | .130 | | 01/19/2013 by Silviano Cabrera, | | Cervic | | | | /07831 | | MD | | al | | | | 130 / | + +------+--------+ +--------+--------+--------+ | Allograft Putty Freeze Dried | | N/A: | | | 10/20/ | [id number] | | Dbx 2.5ml - | | Spine | | | 2014 | | | [id number]: | | Cervic | | | | /63349 | | Qty: 1 on 04/06/2013 by | | al | | | | [id number] | | Silviano Cabrera MD | | | | | | [id number] | | | | | | | | 3 / | + +------+--------+ +--------+--------+--------+ | Screw Vuepoint Post Cerv | | N/A: | | | | 910750 | | 3.5x12mm - [id number]: | | Spine | | | | 2 | | Qty: 3 on 04/06/2013 by | | Cervic | | | | /62326 | | Silviano Cabrera MD | | al | | | | 12 / | + +------+--------+ +--------+--------+--------+ | Screw Vuepoint Post Cerv | | N/A: | | | | [id number] | | 3.5x14mm - [id number]: | | Spine | | | | 4 | | Qty: 1 on 04/06/2013 by | | Cervic | | | | /14286 | | Silviano Cabrera MD | | al | | | | 14 / | + +------+--------+ +--------+--------+--------+ | Srini Vuepoint 3.5x60mm - | | N/A: | | | | [id number] | | [id number]: Qty: 1 on | | Spine | | | | 0 | | 04/06/2013 by Silviano Cabrera, | | Cervic | | | | /24607 | | MD | | al | | | | 60 / | + +------+--------+ +--------+--------+--------+ | Screw Vuepoint Post Cerv Set | | N/A: | | | | [id number] | | Lizbeth & Hook - | | Spine | | | | 0 | | [id number]: Qty: 4 on | | Cervic | | | | /36695 | | 04/06/2013 by Silviano Cabrera, | | al | | | | 00 / | | MD | | | | | | | + +------+--------+ +--------+--------+--------+ | Allograft Osteocell 10cc | | | | | 08/25/ | [id number] | | [id number] - | | | | | 2018 | 0 | | [id number]: Qty: 1 | | | | | | /47150 | | on 04/06/2013 | | | | | | 1542 / | + +------+--------+ +--------+--------+--------+ | Allograft Putty Freeze Dried | | N/A: | | | 11/10/ | [id number] | | Demineralized Bone Matrix Dbx | | Spine | | | 2015 | | | 1ml - | | Cervic | | | | /83425 | | [id number]: | | al | | | | [id number] | | Qty: 1 on 04/06/2013 by | | | | | | [id number] | | Silviano Cabrera MD | | | | | | 1 / | + +------+--------+ +--------+--------+--------+ | Graft Sponge Kit Bone Infuse | | | MEDTRONIC | | | [id number] | | Medium 56ml - | | | | | | 0 / | | [id number]: Qty: 1 on | | | | | | /[id number] | | 03/29/2014 by Silviano Cabrera, | | | | | | [id number] | | | | | | | | | + +------+--------+ +--------+--------+--------+ | Triad Alif Allograft | | | NUVASIVE | | 08/02/ | [id number] | | [id number]: Qty: 1 on | | | | | 2018 | 4 | | 03/29/2014 by Silviano Cabrera, | | | | | | /60188 | | MD | | | | | | 0-065 | | | | | | | | / | + +------+--------+ +--------+--------+--------+ | Screw Brigade 5.5x25mm - | | | NUVASIVE | | | [id number] | | [id number]: Qty: 2 on | | | | | | / | | 03/29/2014 by Silviano Cabrera, | | | | | | | | MD | | | | | | | + +------+--------+ +--------+--------+--------+ | Screw Brigade 5.5x30mm - | | | NUVASIVE | | | [id number] | | [id number]: Qty: 4 on | | | | | | 0 / / | | 03/29/2014 by Silviano Cabrera, | | | | | | | | MD | | | | | | | + +------+--------+ +--------+--------+--------+ | Cage Arnaldo Batista Allograft | | | NUVASIVE | | 07/14/ | 763401 | | [id number] - | | | | | 2012 | 2 / / | | [id number]: Qty: 1 on | | | | | | | | 03/29/2014 by Silviano Cabrera, | | | | | | | | MD | | | | | | | + +------+--------+ +--------+--------+--------+ | Screw Brigade 5.5x35mm - | | | NUVASIVE | | | [id number] | | [id number]: Qty: 2 on | | | | | | | | 03/29/2014 by Silviano Cabrera, | | | | | | | | MD | | | | | | | + +------+--------+ +--------+--------+--------+ | Allograft Block Extra Large | | N/A: | NUVASIVE | | 09/27/ | [id number] | | Formagraft Large - | | Back | | | 2018 | | | [id number]: Qty: 1 on | | | | | | /FG-14 | | 03/29/2014 by Silviano Cabrera, | | | | | | 13 | | MD | | | | | | | + +------+--------+ +--------+--------+--------+ | Graft Sponge Kit Bone Infuse | | N/A: | MEDTRONIC | | 08/27/ | [id number] | | Large 8ml - | | Back | | | 2016 | 0 / | | [id number]: Qty: 1 on | | | | | | /[id number] | | 03/29/2014 by Silviano Cabrera, | | | | | | [id number] | | | | | | | | | + +------+--------+ +--------+--------+--------+ | Allograft Freeze Dried | | N/A: | LIFENET | | 11/13/ | [id number] | | Demineralized Cancellous Mix | | Spine | HEALTH | | 2016 | T | | Ic Graft Chamber 15cc - | | Lumbar | | | | /[id number] | | [id number]: Qty: | | | | | | 57-303 | | 1 on 03/31/2014 by Rick, | | | | | | 1 / | | MD Silviano | | | | | | | + +------+--------+ +--------+--------+--------+ | Graft Sponge Kit Bone Infuse | | N/A: | MEDTRONIC | | 04/01/ | [id number] | | Medium 56ml - | | Spine | | | 2014 | 0 | | [id number]: Qty: 1 | | Lumbar | | | | /[id number] | | on 03/31/2014 by Rick, | | | | | | [id number] | | MD Silviano | | | | | | / | + +------+--------+ +--------+--------+--------+ | Allograft Freeze Dried | | N/A: | LIFENET | | 11/01/ | [id number] | | Demineralized Cancellous Mix | | Spine | HEALTH | | 2017 | T | | Ic Graft Chamber 15cc - | | Lumbar | | | | /[id number] | | [id number]: Qty: | | | | | | 37-301 | | 1 on 03/31/2014 by Rick, | | | | | | 1 / | | MD Silviano | | | | | | | + +------+--------+ +--------+--------+--------+ | Screw Precept Shank Mod | | N/A: | NUVASIVE | | | [id number] | | 7.5x50mm - [id number]: | | Spine | | | | 0 / / | | Qty: 4 on 03/31/2014 by | | Lumbar | | | | | | Silviano Cabrera MD | | | | | | | + +------+--------+ +--------+--------+--------+ | Screw Precept Shank Mod | | N/A: | NUVASIVE | | | [id number] | | 6.5x50mm - [id number]: | | Spine | | | | 0 / / | | Qty: 2 on 03/31/2014 by | | Lumbar | | | | | | Silviano Cabrera MD | | | | | | | + +------+--------+ +--------+--------+--------+ | Screw Locking For 6.25mm Srini | | N/A: | NUVASIVE | | | [id number] | | - [id number]: Qty: 6 | | Spine | | | | 1 / / | | on 03/31/2014 by Rick, | | Lumbar | | | | | | MD Silviano | | | | | | | + +------+--------+ +--------+--------+--------+ | Screw Tulip For 6.25mm Srini - | | N/A: | NUVASIVE | | | [id number] | | [id number]: Qty: 6 on | | Spine | | | | 2 / / | | 03/31/2014 by Silviano Cabrera, | | Lumbar | | | | | | | | | | | | | + +------+--------+ +--------+--------+--------+ | Allograft Freeze Dried | | N/A: | LIFENET | | 11/08/ | [id number] | | Demineralized Cancellous Mix | | Spine | HEALTH | | 2017 | T | | Ic Graft Chamber 15cc - | | Lumbar | | | | [id number] | | [id number]: Qty: | | | | | | 98-303 | | 1 on 03/31/2014 by Rick, | | | | | | 9 / | | MD Silviano | | | | | | | + +------+--------+ +--------+--------+--------+ | Allograft Freeze Dried | | N/A: | LIFENET | | 08/16/ | [id number] | | Demineralized Cancellous Mix | | Spine | HEALTH | | 2016 | T | | Ic Graft Chamber 10cc - | | Lumbar | | | | [id number] | | [id number]: Qty: | | | | | | 22-301 | | 1 on 03/31/2014 by Rick, | | | | | | 3 / | | MD Silviano | | | | | | | + +------+--------+ +--------+--------+--------+ | Allograft Freeze Dried | | N/A: | LIFENET | | 07/13/ | [id number] | | Demineralized Cancellous Mix | | Spine | HEALTH | | 2016 | T | | Ic Graft Chamber 5cc - | | Lumbar | | | | /[id number] | | [id number]: Qty: | | | | | | 40-301 | | 1 on 03/31/2014 by Rick, | | | | | | 1 / | | MD Silviano | | | | | | | + +------+--------+ +--------+--------+--------+ | Srini Spherx Dual Ball Ti Dbr | | N/A: | NUVASIVE | | | [id number] | | Ii 42.5mm - | | Spine | | | | 5 / / | | [id number]: Qty: 2 on | | Lumbar | | | | | | 03/31/2014 by Silviano Cabrera, | | | | | | | | MD | | | | | | | + +------+--------+ +--------+--------+--------+ Procedures + +--------+ + + + | Procedure Name | Priori | Date/Time | Associated Diagnosis | Comments | | | ty | | | | + +--------+ + + + | C-REACTIVE PROTEIN | Routin | 07/20/2018 | Rheumatoid | Results for this | | | e | 12:47 PM | arthritis with | procedure are in the | | | | PST | positive rheumatoid | results section. | | | | | factor, involving | | | | | | unspecified site | | | | | | (HCC) | | + +--------+ + + + | COMPREHENSIVE | Routin | 07/20/2018 | Rheumatoid | Results for this | | METABOLIC PANEL | e | 12:47 PM | arthritis with | procedure are in the | | | | PST | positive rheumatoid | results section. | | | | | factor, involving | | | | | | unspecified site | | | | | | (HCC) | | + +--------+ + + + | SEDIMENTATION RATE, | Routin | 07/20/2018 | Rheumatoid | Results for this | | AUTOMATED | e | 12:47 PM | arthritis with | procedure are in the | | | | PST | positive rheumatoid | results section. | | | | | factor, involving | | | | | | unspecified site | | | | | | (HCC) | | + +--------+ + + + | CBC W/AUTO DIFF | Routin | 07/20/2018 | Rheumatoid | Results for this | | (REFLEX TO MANUAL) | e | 12:47 PM | arthritis with | procedure are in the | | | | PST | positive rheumatoid | results section. | | | | | factor, involving | | | | | | unspecified site | | | | | | (HCC) | | + +--------+ + + + from Last 3 Months Results Sedimentation rate, automated (07/20/2018 12:47 PM) + +--------+ + + | Component | Value | Ref Range | Performed At | + +--------+ + + | ESR | 49 (H) | 0 - 30 mm/h | [facility] | | | | | LABORATORY | + +--------+ + + + + | Specimen | + + | Blood | + + + + + + + | Performing | Address | City/State/Zipcode | Phone Number | | Organization | | | | + + + + + | [facility] | [address] | [place] [address] | [phone] | | LABORATORY | [address] | | | + + + + + CBC W/Auto Diff (Reflex to Manual) (07/20/2018 12:47 PM) + + + + + | Component | Value | Ref Range | Performed At | + + + + + | WBC | 14.06 (H) | 3.80 - 11.00 10*3/uL | [facility] | | | | | LABORATORY | + + + + + | RBC | 4.40 | 3.70 - 5.10 10*6/uL | [facility] | | | | | LABORATORY | + + + + + | HGB | 12.7 | 11.3 - 15.5 g/dL | [facility] | | | | | LABORATORY | + + + + + | HCT | 40.5 | 34.0 - 46.0 % | [facility] | | | | | LABORATORY | + + + + + | MCV | 92.1 | 80.0 - 100.0 fL | [facility] | | | | | LABORATORY | + + + + + | MCH | 28.9 | 27.0 - 34.0 pg | [facility] | | | | | LABORATORY | + + + + + | MCHC | 31.4 (L) | 32.0 - 35.5 g/dL | [facility] | | | | | LABORATORY | + + + + + | RDW SD | 56.4 (H) | 37 - 53 fL | [facility] | | | | | LABORATORY | + + + + + | PLT | 340 | 150 - 400 10*3/uL | [facility] | | | | | LABORATORY | + + + + + | MPV | 7.6 | fL | [facility] | | | | | LABORATORY | + + + + + | DIFF TYPE | MANUAL | | [facility] | | | | | LABORATORY | + + + + + | nRBC | 1 (H) | 0 %/100{WBC} | [facility] | | | | | LABORATORY | + + + + + | Neutrophils Manual | 88 | % | [facility] | | | | | LABORATORY | + + + + + | Bands | 2 | % | [facility] | | | | | LABORATORY | + + + + + | Lymphocytes Manual | 4 | % | [facility] | | | | | LABORATORY | + + + + + | Monocytes Manual | 6 | % | [facility] | | | | | LABORATORY | + + + + + | Neutrophils Absolute | 12.38 (H) | 1.90 - 7.40 10*3/uL | [facility] | | | | | LABORATORY | + + + + + | Bands Manual | 0.28 (H) | 0.00 - 0.20 10*3/uL | [facility] | | | | | LABORATORY | + + + + + | Lymphocytes Absolute | 0.56 (L) | 1.00 - 3.90 10*3/uL | [facility] | | | | | LABORATORY | + + + + + | Monocytes Absolute | 0.84 (H) | 0.00 - 0.80 10*3/uL | [facility] | | | | | LABORATORY | + + + + + | MORPHOLOGY | NORMAL PLT MORPH | | [facility] | | | | | LABORATORY | + + + + + + + | Specimen | + + | Blood | + + + + + + + | Performing | Address | City/State/Zipcode | Phone Number | | Organization | | | | + + + + + | [facility] | [address] | [place] [address] | [phone] | | LABORATORY | [address] | | | + + + + + C-reactive protein (07/20/2018 12:47 PM) + +---------+ + + | Component | Value | Ref Range | Performed At | + +---------+ + + | CRP | 1.5 (H) | <0.5 mg/dL | [facility] | | | | | LABORATORY | + +---------+ + + + + | Specimen | + + | Blood | + + + + + + + | Performing | Address | City/State/Zipcode | Phone Number | | Organization | | | | + + + + + | [facility] | [address] | [place] [address] | [phone] | | LABORATORY | [address] | | | + + + + + Comprehensive metabolic panel (07/20/2018 12:47 PM) + + + + + | Component | Value | Ref Range | Performed At | + + + + + | SODIUM | 145 | 135 - 145 mmol/L | [facility] | | | | | LABORATORY | + + + + + | POTASSIUM | 4.0 | 3.5 - 4.9 mmol/L | [facility] | | | | | LABORATORY | + + + + + | CHLORIDE | 112 (H) | 99 - 109 mmol/L | [facility] | | | | | LABORATORY | + + + + + | CO2 | 26 | 23 - 32 mmol/L | [facility] | | | | | LABORATORY | + + + + + | ANION GAP AGAP | 11 | 5 - 20 mmol/L | [facility] | | | | | LABORATORY | + + + + + | GLUCOSE | 125 (H) | 65 - 99 mg/dL | [facility] | | | | | LABORATORY | + + + + + | BUN | 23 | 8 - 25 mg/dL | [facility] | | | | | LABORATORY | + + + + + | CREATININE | 1.0 | 0.50 - 1.00 mg/dL | [facility] | | | | | LABORATORY | + + + + + | BUN/CREAT | 23 | | [facility] | | | | | LABORATORY | + + + + + | CALCIUM | 8.8 | 8.5 - 10.5 mg/dL | [facility] | | | | | LABORATORY | + + + + + | TOTAL PROTEIN | 6.9 | 6.3 - 8.2 g/dL | [facility] | | | | | LABORATORY | + + + + + | Albumin | 3.3 | 3.3 - 4.8 g/dL | [facility] | | | | | LABORATORY | + + + + + | GLOBULIN | 3.6 | 1.3 - 4.9 g/dL | [facility] | | | | | LABORATORY | + + + + + | A/G | 0.9 (L) | 1.0 - 2.4 | [facility] | | | | | LABORATORY | + + + + + | TBIL | 0.2 | 0.1 - 1.5 mg/dL | [facility] | | | | | LABORATORY | + + + + + | ALK PHOS | 70 | 35 - 115 U/L | [facility] | | | | | LABORATORY | + + + + + | AST | 12 | 10 - 45 U/L | [facility] | | | | | LABORATORY | + + + + + | ALT | 20 | 10 - 65 U/L | [facility] | | | | | LABORATORY | + + + + + | EGFR | 54 (L)Comment: GFR <60: | >60 mL/min/1.73_m2 | [facility] | | | CHRONIC KIDNEY DISEASE, | | LABORATORY | | | IF FOUND OVER A 3 MONTH | | | | | PERIOD. GFR <15: KIDNEY | | | | | FAILURE. FOR | | | | | AMERICANS, MULTIPLY THE | | | | | CALCULATED GFR BY 1.210. | | | | | This eGFR is calculated | | | | | using the MDRD IDNM | | | | | traceable equation. | | | + + + + + + + | Specimen | + + | Blood | + + + + + + + | Performing | Address | City/State/Zipcode | Phone Number | | Organization | | | | + + + + + | [facility] | [address] | [place] [address] | [phone] | | LABORATORY | [address] | | | + + + + + from Last 3 Months Insurance + +--------+ +--------+-------+ + | Payer | Benefi | Subscriber | Type | Phone | Address | | | t Plan | ID | | | | | | / | | | | | | | Group | | | | | + +--------+ +--------+-------+ + | [place] | [place] - | [id number] | Medica | | | | | MODA | | re | | | | | | | | | | | | | | | | | | | | | | | | | | | | | | | | | | | | | | | | [place] - | | | | | | | MODA | | | | | + +--------+ +--------+-------+ + | MEDICAID | FELIPEER | [id number] | | | [address] | | | N | | | | [place] | | | [place] | | | | [phone] | | | [employer] | | | | | + +--------+ +--------+-------+ + + +--------+ +--------+ + + | Guarantor Name | Accoun | Relation to | Date | Phone | Billing Address | | | t Type | Patient | of | | | | | | | | | | + +--------+ +--------+ + + | THEA VILLALOBOS | Person | Self [birth year] Home: | [address] | | | al/Fam | | [phone] | [phone] | [place] | | | jana | | | [phone] | [phone] | + +--------+ +--------+ + +
--- OUTSIDE RECORDS SUMMARY | ~2018-08-18 | XMS | Encounter Summary ---
Demographics + + + | Address | [address] | | | [place] [address] | + + + | Home Phone | | + + + | Preferred Language | Unknown | + + + | Marital Status | | + + + | Shinto Affiliation | Unknown | + + + | Race | Unknown | + + + | Ethnic Group | Unknown | + + + Author + + + | Author | [facility] | + + + | Organization | [facility] | + + + | Address | Unknown | + + + | Phone | Unavailable | + + + Support + + +---------+ + | Name | Relationship | Address | Phone | + + +---------+ + | Mirza Bee | ECON | Unknown | | + + +---------+ + Care Team Providers + +------+ + | Care Wire Drawer Name | Role | Phone | + +------+ + | Caitlin Chino MD | PCP | | + +------+ + Encounter Details +--------+ + + + + | Date | Type | Department | Care Team | Description | +--------+ + + + + | 05/20/ | Procedure | [facility] | | | | 2017 | Pass | [facility] | | | | | | RADIOLOGY [address] | | | | | | [address] | | | | | | [place] [address] | | | | | | [phone] | | | +--------+ + + + [...] | 2018 | Visit | | [facility] [address] | | | | | | [address] | | | | | | [place] [address] | | | | | | [phone] | | | | | | | | +--------+---------+ + + + as of this encounter Visit Diagnoses Not on filein this encounter"
--- OUTSIDE RECORDS SUMMARY | ~2018-08-18 | XMS | Encounter Summary ---
Demographics + + + | Address | [address] | | | [place] [address] | + + + | Home Phone | | + + + | Preferred Language | Unknown | + + + | Marital Status | | + + + | Tenriism Affiliation | Unknown | + + + | Race | Unknown | + + + | Ethnic Group | Unknown | + + + Author + + + | Author | [facility] | + + + | Organization | [facility] | + + + | Address | Unknown | + + + | Phone | Unavailable | + + + Support + + +---------+ + | Name | Relationship | Address | Phone | + + +---------+ + | Mirza Bee | ECON | Unknown | | + + +---------+ + Care Team Providers + +------+ + | Care Short Order Cook Name | Role | Phone | + +------+ + | Caitlin Chino MD | PCP | | + +------+ + Reason for Visit + + + | Reason | Comments | + + + | Follow-up | | + + + Consult and Treat (Routine) + +--------+ + + + + | Status | Reason | Specialty | Diagnoses / | Referred By | Referred To | | | | | Procedures | Contact | Contact | + +--------+ + + + + | Authorized | | Rheumatology | Diagnoses | Moncho | Marco | | | | | Rheumatoid | | Rheumatology | | | | | arthritis, | [place], | [address] | | | | | unspecified | [address] | | | | | ([facility]) | [address] | [place] | | | | | Billed out | 110 | [address] | | | | | for M13.00 | [place], | Phone: | | | | | | [place] | [phone] | | | | | | [address] | Fax: | | | | | | Phone: | [phone] | | | | | | [phone] | | | | | | | Fax: | | | | | | | [phone] | | + +--------+ + + + + Encounter Details +--------+---------+ + + + | Date | Type | Department | Care Team | Description | +--------+---------+ + + + | 07/20/ | Office | [facility] | Abeba Douglas MD | Rheumatoid arthritis | | 2019 | Visit | Rheumatology [address] | with positive | | | | [address] | Place [place] | rheumatoid factor, | | | | [place] [address] | [address] | involving | | | | [phone] | | unspecified site | | | | | | (HCC) (Primary Dx); | | | | | | DDD (degenerative | | | | | | disc disease), | | | | | | lumbar; | | | | | | Spondylolisthesis of | | | | | | lumbar region; | | | | | | Polyarthritis | +--------+---------+ + + + Social History + +-------+ [...] | Height | - | - | + + + + | Body Mass Index | 28.97 | 07/20/2018 12:21 PM PST | + + + + in this encounter Instructions Patient Instructions - Risa Ansari CMA - 07/20/2018 12:30 PM PSTWe hope that you cintron ve experienced exceptional care today and that you found our service to be courteous and hel pful. If you have any questions or need medication refills you can send us a message/request u [employer] or call our office at [phone]. To reach my RI-C type extension [phone]. If you are unable to reach a nurse during clinic hours, please leave a detailed message. We check our messages often and return calls in a timely manner during clinic hours. Orders for labs or imaging: Please remember that will only call you if something of concern needs to be addressed, otherwise all result will be discussed at your next offic e visit. You can also look at your results on [facility]. If you are experiencing an emergency, please call 911 in this encounter Progress Notes Abeba Douglas MD - 07/20/2018 12:30 PM PSTFormatting of this note may be different from the original. Subjective: History of presenting Illness: Subjective Thea Toro a 72 y.o.femalewith complex medical problems, history of lung can cer s/p lobectomy, radaition therapy with recurrence on oral chemotherapy followed by Dr. Florian galeas, oncologist. History of neck, back surgery, underwent bilateral 1st MCP joint repl acement. According to pt she was diagnosed with [...] cancer: She is a 69-year-old woman from [facility] who was previously being diagnosed with mo [...] She is currently on oral chemotherapy treatment. Interval History Last seen:04/15/2018 Any changes in overall health since last visit: yes Current rheumatological complaint: she is on MTX 15 mg/week for about 2 weeks. Has noticed mild improvement but still has bertram n in her fingers. She received steroid injections in her MCP joints. She wants to know if sh e can increase the MTX dose. She recently had a PET scan which did not show any active lesions and is on oral Chemothera py and PDN 10 mg/day. Morning stiffness lasting >30mins Location: Hand joints Quality: stiff Severity: severe Duration: chronic Timing:Morning>Evening Aggravated by:activity Relieved by:medication She has skin lesion which was treated with antibiotics recently. Past Medical History Diagnosis Date Alcohol abuse Anemia Arthritis COPD (chronic obstructive pulmonary disease) ([facility]) Depression GERD (gastroesophageal reflux disease) Hx of blood clots Hyperlipidemia Hypertension Joint pain Malignant neoplasm (HCC) MARCE (obstructive sleep apnea) 08/02/2013 Other chronic pain RA (rheumatoid arthritis) ([facility]) Stroke ([facility]) 2004 Thyroid disease Unspecified visual disturbance glasses Review of Systems Constitutional: Negative for fatigue and fever. HENT: Negative for mouth sores and sore throat. Eyes: Negative for pain and redness. Respiratory: Positive for shortness of breath. Negative for cough. Cardiovascular: Negative for chest pain. Gastrointestinal: Negative for abdominal pain and blood in stool. Genitourinary: Negative for dysuria and hematuria. Musculoskeletal: Positive for joint swelling. Negative for arthralgias. Skin: Negative for rash. Neurological: Negative for numbness and headaches. Psychiatric/Behavioral: The patient is not nervous/anxious. Abeba Gu MD reviewed the above ROS. Objective: BP 136/74 | Pulse 80 | Temp 97.7 F (36.5 C) (Oral) | Wt 71.8 kg (158 lb 6.4 oz) | BMI 28.97 kg/m Physical Exam Constitutional: She is oriented to person, place, and time. She appears well-nourished. HENT: Head: Normocephalic and atraumatic. Mouth/Throat: No oropharyngeal exudate. Eyes: Pupils are equal, round, and reactive to light. Conjunctivae and EOM are normal. Neck: Normal range of motion. Neck supple. No thyromegaly present. Cardiovascular: Normal rate, regular rhythm and normal heart sounds. No murmur heard. Pulmonary/Chest: She is in respiratory distress. She has wheezes. She has no rales. Musculoskeletal: Musculoskeletal examination of the RIGHT and LEFT upper extremity, RIGHT and LEFT lower ext remity, spine, ribs ,pelvis ,head and neck was performed Musculoskeletal exam reveals no synovitis, tenderness, soft tissue swelling or instability of the joints Cervical spine: Has limited forward flexion, extension, lateral flexion and extension Thoracic spine: Normal Lumbo-sacral spine: Has limited forward flexion, extension, lateral flexion and extension Hips: Has limited flexion, extension, adduction, abduction, external rotation and internal rotation Lymphadenopathy: She has no cervical adenopathy. Neurological: She is alert and oriented to person, place, and time. Skin: Skin is warm and dry. Psychiatric: She has a normal mood and affect. Joint Exam Imaging: Imaging: Previous Report Reviewed:lab reports, office notes and radiology reports Xray hands: IMPRESSION - Post surgical changes are seen related to surgical removal of the right trapezium. Mild scattered intercarpal, interphalangeal, and radiocarpal joint degenerative changes are present. reviewed labs from Care everywhereThe [facility] were [facility] in [facility] Joint Exam Assessment and Plan: Rheumatoid arthritis with positive rheumatoid factor, involving unspecified site (HCC) Thea Toro a 72 y.o. female with complex medical problems, history of lung cancer s/p lobectomy, radaition therapy with recurrence on oral chemotherapy followed by Dr. Stevenson nick, oncologist. History of neck, back surgery, underwent bilateral 1st MCP joint replacem ent. She presents to clinic for evaluation of RA. Based on clinical history and exam she hannah s not have synovitis which is usually seen in RA. Xray of the hands are also suggestive of Degenerative changes. The other possibility is that Prednisone could be masking her inflamm ation showing no signs of synovitis. Will revaluate for the previous diagnosis of RA. If her serologies are negative then there is no indication for treatment for RA. Occasionally RA factor can be positive in cases of ma lignancies. Will check for anti-ccp antibodies and discuss the treatment options at her next clinic visit which would be limited. Given her history of severe COPD, lung cancer s/p lobectomy, radiation therapy and now on o ral chemotherapy she would be at risk of immunomodulator therapy rather than benefits. She i s on PDN 10 mg/day for COPD. - she is on PDN 10 mg for COPD. Active issues: Joint pain- continue MTX 15 mg/week for two more weeks then c=increase to 17.5 mg/week for 1 months and then increase to 20 mg/week, continue FA. She is also on PDN 10 mg/day fro COPD . Has recurrent skin infection needing antibiotics. Did explain that PDN and MTX both are im munosuppressants which can increase the risk of infection. High risk medication use. Basic labs Monitored (CBC,CMP and ESR): Up to date Labs routinely ordered due to high risk medication use- Monitored for cytopenias, liver tox icity, renal dysfunction and disease activity. Hepatitis panel: ordered This will be checked every 5 years based on patients risk or at time of biologic drug ascencio e. Chest x-ray: COPD, Lung cancer on oral chemotherapy DDD (degenerative disc disease), lumbar: Spondylolisthesis of lumbar region: - on narcotics Return to clinic as needed. Risks and benefits of a treatment plan were explained to patien t Patient will follow up with their primary care physician in regards to non-rheumatological symptoms listed under review of systems Patient was advised to contact our office if there are any change in their symptoms in this encounter Plan of Treatment +--------+---------+ + + + | Date | Type | Specialty | Care Team | Description | +--------+---------+ + + + | 10/18/ | Office | Rheumatology | Santosh Sumner, | | | 2018 | Visit | | [facility] [address] | | | | | | [facility] | | | | | | [place] [address] | | | | | | [phone] | | | | | | | | +--------+---------+ + + + as of this encounter Procedures + +--------+ [...] | | + +--------+ + + + in this encounter Results C-reactive protein (07/20/2018 12:47 PM) + +---------+ [...] | + + + + + | [facility] | [address] | [place] [address] | [phone] | | LABORATORY | [address] | | [...] 6.9 | 6.3 - 8.2 g/dL | [facility] | | | | | LABORATORY | + + + + + | Albumin | 3.3 | 3.3 - 4.8 g/dL | [facility] | | | | [...] (L)Comment: GFR <60: | >60 mL/min/1.73_m2 | [facility] | | | CHRONIC KIDNEY DISEASE, | [...] MDRD IDMS | | | | | traceable equation. | | | + + + + + + + | Specimen | + + | Blood | + + + + + + + | Performing | Address | City/State/Zipcode | Phone Number | | Organization | | | | + + + + + | [facility] | [address] | [place] [address] | [phone] | | LABORATORY | [address] | | | + + + + + Sedimentation rate, automated (07/20/2018 12:47 PM) + [...] | + + + + + | [facility] | [address] | [place] [address] | [phone] | | LABORATORY | [address]vd[address] | | | + + + + + CBC W/Auto Diff (Reflex to Manual) (07/20/2018 12:47 PM) + + + + + | Component | Value | Ref Range | Performed At | + + + + + | WBC | 14.06 (H) | 3.80 - 11.00 10*3/uL | [facility] | | | | | LABORATORY | [...] | + + + + + | [facility] | [address] | [place] [address] | [phone] | | LABORATORY | [address]vd[address] | | | + + + + + in this encounter Visit Diagnoses + + | Diagnosis | + + | Rheumatoid arthritis with positive rheumatoid factor, involving unspecified site (HCC) | | - Primary | + + | DDD (degenerative disc disease), lumbar | + + | Spondylolisthesis of lumbar region | + + | Acquired spondylolisthesis | + + | Polyarthritis | + + | Unspecified polyarthropathy or polyarthritis, site unspecified | + +"
--- OUTSIDE RECORDS SUMMARY | ~2018-08-18 | XMS | Clinical Summary ---
Demographics + + + | Address | [address] | | | [place] [address] | + + + | Home Phone | | + + + | Preferred Language | Unknown | + + + | Marital Status | | + + + | Oriental Orthodox Affiliation | Unknown | + + + | Race | Unknown | + + + | Ethnic Group | Unknown | + + + Author + + + | Author | [facility] | | | and [place] | + + + | Organization | [facility] | | | and [place] | + + + | Address | Unknown | + + + | Phone | Unavailable | + + + Support + + + + + | Name | Relationship | Address | Phone | + + + + + | Mirza Bee | DEBBY | Unknown | | + + + + + | Jewel Azevedo | DEBBY | [address] | | | | | [place] | | | | | [address] | | + + + + + Care Team Providers + +------+ + | Care Disintegrator Name | Role | Phone | + +------+ + | Caitlin Chino MD | PP | | + +------+ + Allergies + + + + + + | Active Allergy | Reactions | Severity | Noted | Comments | | | | | Date | | + + + + + + | Mirtazapine | Other (See Comments) | Low | 10/09/19 | | | | | | 18 | | + + + + + + | Trazodone | Hives | Medium | 10/09/19 | | | | | | 18 | | + + + + + + Current Medications + + + +---------+------+------+-------+ | [...] | 16 | | | | COMPRESSOR) RIZWANA | [...] | nebulization 4 times | | | 11/18 | | e | | m (DUONEB) [...] | mouth every morning | | | 09/18 | | e | | 24 hr tablet | AT THE SAME TIME | | | 17 | | | | | EACH DAY WITH FOOD | | | | | | + + + +---------+------+------+-------+ | raNITIdine | take 1 tablet by | | 0 | 05/ | | Activ | | (ZANTAC) 300 MG | mouth twice a day | | | 06/20 | | e | | tablet | [...] spray in 1 | | 0 | 05/ | | Activ | | | NOSTRIL if needed | | | 020 | | e | | | for opioid overdose | | | 18 | | | | | may re... (REFER TO | | | | | | | | PRESCRIPTION | | | | | | | | NOTES). | | | | | | + + + +---------+------+------+-------+ | rOPINIRole | Take 2 tablets by | | 0 | 10/30 | | Activ | | (REQUIP) 0.5 MG | mouth nightly. | | | 07/21 | | e | | tablet | | | | 18 | | | + + + +---------+------+------+-------+ | methotrexate 2.5 | take 6 tablets by | | 0 | 06/2 | | Activ | | MG | mouth every week | | | 10/18 | | e | | tabletIndications: | | | | 18 | | | | Right hand pain | | | | | | | + + + +---------+------+------+-------+ | cyclobenzaprine | Take 10 mg by mouth. | | | 12/30 | | Activ | | (FLEXERIL) 10 mg | | | | 0/20 | | e | | tablet | | | | 16 | | | + + + +---------+------+------+-------+ | roflumilast | Take 1 tablet by | | | 09/2 | | Activ | | (DALIRESP) 500 mcg | mouth. | | | 7/20 | | e | | tablet | | | | 18 | | | + + + +---------+------+------+-------+ | folic acid 1 mg | | | 0 | 02/1 | | Activ | | tablet | | | | 3/20 | | e | | | | | | 19 | | | + + + +---------+------+------+-------+ | loperamide | | | 0 | 01/2 | | Activ | | (IMODIUM) 2 mg | | | | 2/20 | | e | | capsule | | | | 19 | | | + + + +---------+------+------+-------+ | mirtazapine | | | 0 | / | | Activ | | (REMERON) 15 MG | | | | 3/20 | | e | | tablet | | | | 19 | | | + + + +---------+------+------+-------+ | warfarin | Take 5 mg by mouth. | | | 04/02 | | Activ | | (COUMADIN) 5 mg | | | | 01/18 | | e | | tablet | | | | 18 | | | + + + +---------+------+------+-------+ | clopidogrel | Take 75 mg by mouth | | | | 02/1 | Disco | | (PLAVIX) 75 mg | Daily. | | | | 02/18 | ntinu | | tablet | | | | | 19 | ed | + + + +---------+------+------+-------+ | furosemide (LASIX) | Take 20 mg by mouth | | 0 | 05/2 | 07/02 | Disco | | 20 mg tablet | Daily. | | | 8 | 20 | ntinu | | | | | | 17 | 19 | ed | + + + +---------+------+------+-------+ + + +-------+ +------+------+-------+ | Hospital, Clinic, or | Ordered | Route | Frequency | Star | End | Statu | | Other Facility | Dose | | | t | Date | s | | Administered | | | | Date | | | | Medication | | | | | | | + + +-------+ +------+------+-------+ | betamethasone | 3 mg | IM | ONCE | 07/02 | 07/02 | Ended | | (CELESTONE SOLUSPAN) | | | | / | 01/18 | | | injection 3 | | | | 19 | 19 | | | mgIndications: | | | | | | | | Trigger finger of | | | | | | | | left thumb, Trigger | | | | | | | | middle finger of | | | | | | | | left hand, Trigger | | | | | | | | ring finger of left | | | | | | | | hand | | | | | | | + + +-------+ +------+------+-------+ | betamethasone | 3 mg | IM | EVERY 24 HOURS | 07/02 | 07/03 | Ended | | (CELESTONE SOLUSPAN) | | | INTERVAL | 8 | 0/20 | | | injection 3 | | | | 19 | 19 | | | mgIndications: | | | | | | | | Trigger finger of | | | | | | | | left thumb, Trigger | | | | | | | | middle finger of | | | | | | | | left hand, Trigger | | | | | | | | ring finger of left | | | | | | | | hand | | | | | | | + + +-------+ +------+------+-------+ | betamethasone | 3 mg | IM | EVERY 24 HOURS | 07/02 | 07/03 | Ended | | (CELESTONE SOLUSPAN) | | | INTERVAL | 8 | 0/20 | | | injection 3 | | | | 19 | 19 | | | mgIndications: | | | | | | | | Trigger finger of | | | | | | | | left thumb, Trigger | | | | | | | | middle finger of | | | | | | | | left hand, Trigger | | | | | | | | ring finger of left | | | | | | | | hand | | | | | | | + + +-------+ +------+------+-------+ Active Problems + + + | Problem | Noted Date | + + + | Pulmonary embolism (HCC) | 05/03/2018 | + + + | Restless legs | 11/10/2017 | + + + | Nephrolithiasis | 02/17/2017 | + + + | Pharyngeal dysphagia | 11/30/2015 | + + + | Recurrent pneumonia | 11/07/2015 | + + + | Difficulty in swallowing | 11/07/2015 | + + + | CAP (community acquired pneumonia) | 10/03/2015 | + + + | Acute infective exacerbation of chronic obstructive airway | 06/18/2015 | | disease (HCC) | | + + + | Spinal stenosis of lumbar region | 06/18/2015 | + + + | Radiation pneumonitis [...] biopsy by | | interventional radiology at [facility] of the right lung massshows | | [...] disease 4. | | seen by Dr. Beltran , thoracic surgeon at [facility] for | | consideration of bronchoscopy, right thoracoscopy, thoracic | | lymphadenectomy to rule out N2 disease, probable lower lobectomy, | | possible thoracotomy . Date: September 16, 2013,5. Right minimally | | invasive lower lobe lobectomy and minimally invasive | | thoracoscopic lymphadenectomy : Dr. José Miguel beltran : 09/16/13:3.2x | | 3.0x1.7 cm tumor, [...] in August 20149. Admitted to | | [facility] on September 27, 2014 for right-sided chest | | pain secondary to acute bronchitis.10. CT chest [facility] on September 28, 2014 demonstrated persistent [...] that Thea was | | admitted to [facility] in [place], [place] for acute | | exacerbation of chronic bronchitis. During her hospitalization | | there, a chest CT was performed demonstrating a persistent 32 x | | 26 mm right hilar mass. These images were reviewed subsequently | | at the [facility] on their PACS system. Radiographic | | abnormality in the right hilum may represent persistent tumor or | | simply residual, non viable tissue following combined modality | | therapy.Since therapeutic effect of irradiation may be delayed, I | | recommended waiting an additional month before proceeding with | | repeat PET scan to assess for persistent disease. PET/CT schedule | | at [facility] on December 21, 2014 with follow up at [facility] | | the following [...] | + + + | Rheumatoid arthritis(714.0) ([facility]) | 03/30/2013 | + + + [...] 4 | + + + + Encounters +--------+---------+ + + + | Date | Type | Specialty | Care Team | Description | +--------+---------+ + + + | 07/19/ | Office | | Giuliano Padilla, | Trigger finger of | | 2019 | Visit | | MD | left thumb (Primary | | | | | | Dx); Trigger middle | | | | | | finger of left hand; | | | | | | Trigger ring finger | | | | | | of left hand | +--------+---------+ + + + from Last 3 Months [...] + | Blood Pressure | 118/62 | 11/19/20171351 PDT | + + + [...] Weight | 58.5 kg (129 lb) | 07/19/20181513 PST | + + + + | Height | 157.5 cm (5' 2") | 07/19/20181513 PST | + + + + | Body Mass Index | 23.59 | 07/19/20181513 PST | + + + + Plan of Treatment +--------+---------+ + + + | Date | Type | Specialty | Care Team | Description | +--------+---------+ + + + | 09/01/ | Office | | | | | 2018 | Visit | | | | +--------+---------+ + + + | 09/06/ | Office | | Giuliano Padilla, | | | 2019 | Visit | | [facility] | | | | | | [place] | | | | | | [address] | | | | | | | [...] | + + + + + | Adult Annual | | | | | Wellness Visit | 5 | | | + + [...] 02/24/2018, 04/10/2017, | | | | | 03/26/2017, Additional history | | | | | exists | | + + + + + | Vaccine: | Completed | 02/25/2018, 07/26/2014, | | | Pneumococcal 65+ | | 07/14/2014, Additional history | | | High/Highest Risk [...] Lot | + +------+--------+ +--------+--------+--------+ | [facility] Mri Powerport 8fr - | | | BARD ACCESS | | 03/20/ | [id number] | | [id number]: Qty: 1 on | | | SYSTEMS - | | 2016 | 0 / | | 07/28/2014 by , | | | ELLEN | | | /[id number] | | Chalino Gu MD, [facility] | | | | | | 003 | + +------+--------+ +--------+--------+--------+ | Mini TightropeImplanted: Qty: | | Right: | ARTHREX | | 11/18/ | [id number] | | 1 on 03/20/2015 by Randy, | | Hand | ARTHREX | | 2020 | 9DS / | | Giuliano Briones MD | | | INC. | | | /[id number] | | | | | | | | 349 | + +------+--------+ +--------+--------+--------+ Results Not on filefrom Last 3 Months Insurance + +--------+ +--------+ +---------+ | Payer | Benefi | Subscriber | Type | Phone | Address | | | t Plan | ID | | | | | | / | | | | | | | Group | | | | | + +--------+ +--------+ +---------+ | [employer] | MODA | [id number] | Medica | | | | | HEALTH | | re | | | | | MDCR | | | | | + +--------+ +--------+ +---------+ | [employer] | MODA | [id number] | Medica | [phone] | | MEDICAID HMO | HEALTH [...] | Home: | [address] | | [place] | joann/Anant | | [phone] | [phone] | [place] | | | jana | | [phone] | [phone] | + +--------+ +--------+ + +
--- OUTSIDE RECORDS SUMMARY | ~2018-08-18 | XMS | Encounter Summary ---
Demographics + + + | Address | [address] | | | [place] [address] | + + + | Home Phone | | + + + | Preferred Language | Unknown | + + + | Marital Status | | + + + | Roman Catholic Affiliation | Unknown | + + + | Race | Unknown | + + + | Ethnic Group | Unknown | + + + Author + + + | Author | [facility] | + + + | Organization | [employer] [facility] [employer] [facility] | + + + | Address | Unknown | + + + | Phone | Unavailable | + + + Support + + +---------+ + | Name | Relationship | Address | Phone | + + +---------+ + | Mirza Bee | ECON | Unknown | | + + +---------+ + Care Team Providers + +------+ + | Care Residential Energy Auditor Name | Role | Phone | + +------+ + | Daivs Ivan MD | PCP | Unavailable | + +------+ + Encounter Details +--------+ + + + + | Date | Type | Department | Care Team | Description | +--------+ + + + + | 06/03/ | Telephone | [facility] | [place], | | | 2018 | | Rheumatology [address] | [place] [address] | | | | | [place] | | | | | | [place] [address] | | | | | | [phone] | | | +--------+ + + + [...] | 2018 | Visit | | [address] | | | | | | [place] | | | | | | [place] [address] | | | | | | [phone] | | | | | | | | +--------+---------+ + + + as of this encounter Visit Diagnoses Not on filein this encounter"
--- OUTSIDE RECORDS SUMMARY | ~2018-08-18 | XMS | Encounter Summary ---
Demographics + + + | Address | [address] | | | [place] [address] | + + + | Home Phone | | + + + | Preferred Language | Unknown | + + + | Marital Status | | + + + | Shinto Affiliation | Unknown | + + + | Race | Unknown | + + + | Ethnic Group | Unknown | + + + Author + + + | Author | [email or web address] | + + + | Organization | [facility] | + + + | Address | Unknown | + + + | Phone | Unavailable | + + + Support + + +---------+ + | Name | Relationship | Address | Phone | + + +---------+ + | Mirza Bee | ECON | Unknown | | + + +---------+ + Care Team Providers + +------+ + | Care Hat Mender Name | Role | Phone | + [...] | | unspecified | [address] | | | | | ([facility]) | [address] [place] | [place] | | | | | Billed out | 110 | [address] | | | | | for M13.00 | [place], | Phone: | | | | | | [place] | [phone] | | | | | | [address] | Fax: | | | | | | Phone: | [phone] | | | | | | [phone] | | | | | | | Fax: | | | | | | | [phone] | | + +--------+ + + + + Encounter Details +--------+---------+ + + + | Date | Type | Department | Care Team | Description | +--------+---------+ + + + | 07/20/ | Office | [facility] | Abeba Douglas MD | Rheumatoid arthritis | | 2019 | Visit | Rheumatology [address] | with positive | | | | [address] | Place [place] | rheumatoid factor, | | | | [place] [address] | [address] | involving | | | | [phone] | | unspecified site | | | [...] you can send us a message/request u [place] or call our office at [phone]. To reach my PA-C type extension [phone]. If you are unable to reach a [...] [facility] If you are experiencing an emergency, please [...] cancer: She is a 69-year-old woman from [facility] who was previously being diagnosed with [...] Anemia Arthritis COPD (chronic obstructive pulmonary disease) ([facility]) Depression GERD (gastroesophageal reflux disease) Hx of blood clots Hyperlipidemia Hypertension Joint pain Malignant neoplasm (HCC) MARCE (obstructive sleep apnea) 08/02/2013 Other chronic pain RA (rheumatoid arthritis) ([facility]) Stroke ([facility]) 2004 Thyroid disease Unspecified visual disturbance glasses [...] from Care everywhereThe labs were reviewed in [facility] Joint Exam Assessment and Plan: Rheumatoid [...] | 2018 | Visit | | [address] | | | | | | [facility] | | | | | | [place] [address] | | | | | | [phone] | | | | | | | [...] | + + + + + | [facility] | [address] | [place] [address] | [phone] | | LABORATORY | [address]vd[address] | | [...] | + + + + + | [facility] | [address] | [place] [address] | [phone] | | LABORATORY | Blvd[address] | | [...] | + + + + + | [facility] | [address] | [place] [address] | [phone] | | LABORATORY | Blvd. | | | + + + + + CBC W/Auto Diff (Reflex to Manual) (07/20/2018 12:47 PM) + + + + + | Component | Value | Ref Range | Performed At | + + + + + | WBC | 14.06 (H) | 3.80 - 11.00 10*3/uL | [facility] | | | | | LABORATORY | [...] | + + + + + | [facility] | [address] | [place] [address] | [phone] | | LABORATORY | Blvd. | | [...]
--- OUTSIDE RECORDS SUMMARY | ~2018-08-18 | XMS | Encounter Summary ---
Demographics + + + | Address | [address] | | | [place] [address] | + + + | Home Phone | | + + + | Preferred Language | Unknown | + + + | Marital Status | | + + + | Methodist Affiliation | Unknown | + + + | Race | Unknown | + + + | Ethnic Group | Unknown | + + + Author + + + | Author | [facility] | | | and [place] | + + + | Organization | [facility] | | [...] [place] | | | | | [address] | | + + + + + Care Team Providers + +------+ + | Care Materials Coordinator Name | Role | Phone | + +------+ + | Caitlin Chino MD | PCP | | + +------+ + Reason for Visit + + + | Reason | Comments | + + + | Finger Pain | EPNP: Bilateral Hand (All Fingers are Catching) Onset x 1-2 years | + + + Evaluate & Treat (Routine) +--------+--------+ + + + + | Status | Reason | Specialty | Diagnoses / | Referred By | Referred To | | | | | Procedures | Contact | Contact | +--------+--------+ + + + + | Closed | | Orthopedic | Diagnoses | Moncho, | Randy, | | | | Surgery | Synovitis | Davis | Giuliano Briones MD | | | | | josep | MD [address] | [address] | | | | | tenosynoviti | [address] | [place], | | | | | s, | [address] | [place] [address] | | | | | unspecified | [place], | Phone: | | | | | | [place] | [phone] | | | | | | [address] | Fax: | | | | | | Phone: | [phone] | | | | | | [phone] | | | | | | | Fax: | | | | | | | [phone] | | +--------+--------+ + + + + Encounter Details +--------+---------+ + + + | Date | Type | Department | Care Team | Description | +--------+---------+ + + + | 07/19/ | Office | [facility] [place] | Giuliano Padilla, | Trigger finger of | | 2019 | Visit | ORTHOPEDIC SURGERY | MD [address] | left thumb (Primary | | | | [address] | [place] | Dx); Trigger middle | | | | [place] | [address] | finger of left hand; | | | | [address] | | Trigger ring finger | | | | [phone] | | of left hand | +--------+---------+ + + + Social History [...] Weight | 58.5 kg (129 lb) | 07/19/2018 1514 PST | + + + + | Height | 157.5 cm (5' 2") | 07/19/2018 1514 PST | + + + + | Body Mass Index | 23.59 | 07/19/2018 1514 PST | + + + + in this encounter Progress Notes Giuliano Padilla MD - 07/19/2018 1500 PSTPatient returns with a new complaint of triggering both hands She states that intermittently she will get triggering of the thumb, long and ring fingers in both hands The left hand is more bothersome than the right She has done well s/p first cmc arthroplasty both sides by me She has no carpal tunnel syndrome symptoms No other digits are triggering On exam today she has mild triggering of the above digits No locking today We discussed the natural history and treatment options She wishes to try injections left hand Under sterile conditions today I injected the A1 samara region of the thumb, long and ring fingers left hand with 1/2 cc of naropin and 1/2 cc of celestone each digits She tolerated well and will let me know how she is doing over time We discussed the role of trigger finger releasein this encounter Plan of Treatment +--------+---------+ + + + | Date | Type | Specialty | Care Team | Description | +--------+---------+ + + + | 09/01/ | Office | Pulmonology | | | | 2018 | Visit | | | | +--------+---------+ + + + | 09/06/ | Office | Orthopedic Surgery | Giuliano Padilla, | | | 2018 | Visit | | MD [address] | | | | | | [place] | | | | | | [address] | | | | | | | | +--------+---------+ + + + as of this encounter Visit Diagnoses + + | Diagnosis | + + | Trigger finger of left thumb - Primary | + + | Trigger middle finger of left hand | + + | Trigger finger (acquired) | + + | Trigger ring finger of left hand | + + | Trigger finger (acquired) | + + Administered Medications + +--------+ +------+------+ + | Medication Order | MAR | Action | Dose | Rate | Site | | | Action | Date | | | | + +--------+ +------+------+ + | betamethasone (CELESTONE | Given | | 3 mg | | Other | | SOLUSPAN) injection 3 mg 3 mg, | | 9 17:28 | | | (Comment | | Intramuscular, ONCE, 07/19/18 | | PST | | | ) | | at 1745, For 1 dose, Shake well. | | | | | | | Not for IV use. | | | | | | + +--------+ +------+------+ + +---+---+ | | | +---+---+ + +-------+ +------+---+ + | betamethasone (CELESTONE | Given | | 3 mg | | Other | | SOLUSPAN) injection 3 mg 3 mg, | | 9 17:27 | | | (Comment | | Intramuscular, EVERY 24 HOURS | | PST | | | ) | | INTERVAL, First dose on Mon | | | | | | | 07/19/18 at 1745, For 2 doses, | | | | | | | Shake well. Not for IV use. | | | | | | + +-------+ +------+---+ + +---+---+ | | | +---+---+ + +-------+ +------+---+ + | betamethasone (CELESTONE | Given | | 3 mg | | Other | | SOLUSPAN) injection 3 mg 3 mg, | | 9 17:25 | | | (Comment | | Intramuscular, EVERY 24 HOURS | | PST | | | ) | | INTERVAL, First dose on Mon | | | | | | | 07/19/18 at 1745, For 2 doses, | | | | | | | Shake well. Not for IV use. | | | | | | + +-------+ +------+---+ + +---+---+ | | | +---+---+ in this encounter
--- OUTSIDE RECORDS SUMMARY | ~2018-08-18 | XMS | Clinical Summary ---
Demographics + + + | Address | [address] | | | [place] [address] | + + + | Home Phone | | + + + | Preferred Language | Unknown | + + + | Marital Status | | + + + | Yarsani Affiliation | Unknown | + + + | Race | Unknown | + + + | Ethnic Group | Unknown | + + + Author + + + | Author | [facility] | | | and [place] | + + + | Organization | Located [facility] | | [...] [place] | | | | | [address] | | + + + + + Care Team Providers + +------+ + | Care Electrostatic Painter Name | Role | Phone | + +------+ + | Caitlin Chnio MD | PP | | + +------+ [...] | IM | EVERY 24 HOURS | 02/ | 02/ | Ended | | (CELESTONE SOLUSPAN) | | | INTERVAL | 8/20 | 0/20 | | | injection 3 [...] (CELESTONE SOLUSPAN) | | | INTERVAL | 01/18 | 020 | | | injection 3 | | [...] | + + + | Radiation pneumonitis ([facility]) | 03/08/2015 | + + + | Recurrent squamous cell carcinoma of lung ([facility]) | 07/11/2014 | + + + + [...] biopsy by | | interventional radiology at [facility] of the right lung massshows | [...] by Dr. Beltran , thoracic surgeon at [facility] for | | consideration of bronchoscopy, [...] in August [address]49. Admitted to | | [facility] on September 27, 2014 for right-sided chest | | pain secondary to acute bronchitis.10. CT chest [facility] on September 28, 2014 demonstrated persistent 32 mm x 26 mm | | x 27 mm Right Hilar Mass. Last Assessment & Plan: Stephanie | | returned to the [facility] on | | November 09, 2014 for follow up of her locally recurrent RIGHT Lung | | cancer. Interval history is notable for the fact that Thea was | | admitted to [facility] in [place], [place] for acute | | exacerbation of chronic bronchitis. During her hospitalization | | there, a chest CT was performed demonstrating a persistent 32 x | | 26 mm right hilar mass. These images were reviewed subsequently | | at the [facility] on their PACS system. Radiographic | [...] persistent disease. PET/CT schedule | | at [facility] on December 21, [address] [facility] | | the following week. [...] | + + + | Rheumatoid arthritis(714.0) ([facility]) | 03/30/2013 | + + + [...] Padilla, | Trigger finger of | | 2018 | Visit | | MD | left [...] + + | Pulse | 90 | 11/19/2017 1352 PDT | + + + + | Temperature | 36.8 C (98.3 F) | 11/19/20171351 PDT | + + + + | Respiratory Rate | 15 | 10/27/20171344 PDT | + + + + | [...] 1514 PST | + + + + Plan of Treatment +--------+---------+ + + + | Date | Type | Specialty | Care Team | Description | +--------+---------+ + + + | 09/01/ | Office | | | | | 2018 | Visit | | | | +--------+---------+ + + + | 09/06/ | Office | | Giuliano Padilla, | | | 2018 | Visit | | [address] | | | | | | [place] | | | | | | [address] | | | | | | | [...] | BARD ACCESS | | 03/20/ | [id number] | | [id number]: Qty: 1 on | | | SYSTEMS - | | 2015 | 0 / | | 07/28/2014 by , | | | ELLEN | | | /REYL0 | | Chalino Gu MD, FACS | | | | | | 003 | + +------+--------+ +--------+--------+--------+ | Mini TightropeImplanted: Qty: | | Right: | ARTHREX | | 11/18/ | AR-891 | | 1 on 03/20/2015 by Randy, | | Hand | MUSA | | 2020 | 9DS / | | Giuliano Briones MD | | | INC. | | | /[id number] | | | | | | | [...] | [employer] | MODA | [id number] | Medica | | | | | HEALTH | | re | | | | | MDCR | | | | | + +--------+ +--------+ +---------+ | [employer]AN | MODA | [id number] | Medica | [phone] | | MEDICAID O | HEALTH | | id | [id number] [...] Home: | [address] | | [place] | al/Anant | | 1945 | [phone] | [place] | | | jana | | | [phone] | [address] | + +--------+ +--------+ + +
--- OUTSIDE RECORDS SUMMARY | ~2018-08-18 | XMS | Encounter Summary ---
Demographics + + + | Address | [address] | | | [place] [address] | + + + | Home Phone | | + + + | Preferred Language | Unknown | + + + | Marital Status | | + + + | Episcopalian Affiliation | Unknown | + + + | Race | Unknown | + + + | Ethnic Group | Unknown | + + + Author + + + | Author | [facility] | + + + | Organization | [facility] | + + + | Address | Unknown | + + + | Phone | Unavailable | + + + Support + + +---------+ + | Name | Relationship | Address | Phone | + + +---------+ + | Mirza Bee | ECON | Unknown | | + + +---------+ + Care Team Providers + +------+ + | Care Ice Grinder Name | Role | Phone | + [...] | | unspecified | [address] | | | | | ([facility]) | [address] | [place] | | | | | Billed out | 110 | [address] | | | | | for M13.00 | [place], | Phone: | | | | | | [place] | [phone] | | | | | | [address] | Fax: | | | | | | Phone: | [phone] | | | | | | [phone] | | | | | | | Fax: | | | | | | | [phone] | | + +--------+ + + + + Encounter Details +--------+---------+ + + + | Date | Type | Department | Care Team | Description | +--------+---------+ + + + | 07/20/ | Office | [facility] | Abeba Douglas MD | Rheumatoid arthritis | | 2019 | Visit | Rheumatology [address] | with positive | | | | [address] | Place [place] | rheumatoid factor, | | | | [place] [address] | [address] | involving | | | | [phone] | | unspecified site | | | [...] you can send us a message/request u Acorns or call our office at [phone]. To reach my MO-C type extension [phone]. If you are unable to reach a [...] can also [facility] If you are experiencing an [...] cancer: She is a 69-year-old woman from [facility] who was previously being diagnosed with [...] Anemia Arthritis COPD (chronic obstructive pulmonary disease) ([facility]) Depression GERD (gastroesophageal reflux disease) Hx of blood clots Hyperlipidemia Hypertension Joint pain Malignant neoplasm (HCC) MARCE (obstructive sleep apnea) 08/02/2013 Other chronic pain RA (rheumatoid arthritis) ([facility]) Stroke ([facility]) 2004 Thyroid disease Unspecified visual [...] from Care everywhereThe labs were reviewed in [facility] Joint Exam Assessment and Plan: Rheumatoid arthritis [...] | 2018 | Visit | | [address] | | | | | | [facility] | | | | | | [place] [address] | | | | | | [phone] | | | | | | | [...] | + + + + + | [facility] | [address] | [place] [address] | [phone] | | LABORATORY | Blvd. | | [...] | + + + + + | [facility] | [address] | [place] [address] | [phone] | | LABORATORY | Blvd. | | [...] | + + + + + | [facility] | [address] | [place] [address] | [phone] | | LABORATORY | Blvd. | | | + + + + + CBC W/Auto Diff (Reflex to Manual) (07/20/2018 12:47 PM) + + + + + | Component | Value | Ref Range | Performed At | + + + + + | WBC | 14.06 (H) | 3.80 - 11.00 10*3/uL | [facility] | | | | | LABORATORY | [...] | + + + + + | [facility] | [address] | [place] [address] | [phone] | | LABORATORY | Blvd. | | [...]
--- OUTSIDE RECORDS SUMMARY | ~2018-08-18 | XMS | Encounter Summary ---
Demographics + + + | Address | [address] | | | [place] [address] | + + + | Home Phone | | + + + | Preferred Language | Unknown | + + + | Marital Status | | + + + | Catholic Affiliation | Unknown | + + + | Race | Unknown | + + + | Ethnic Group | Unknown | + + + Author + + + | Author | [facility] | + + + | Organization | [facility] | + + + | Address | Unknown | + + + | Phone | Unavailable | + + + Support + + +---------+ + | Name | Relationship | Address | Phone | + + +---------+ + | Mirza Bee | ECON | Unknown | | + + +---------+ + Care Team Providers + +------+ + | Care Drug Safety Scientist Name | Role | Phone | + +------+ + | Davis Ivan MD | PCP | Unavailable | + +------+ + Reason for Visit MRI/CAT Scan (Routine) + +--------+ + + + + | Status | Reason | Specialty | Diagnoses / | Referred By | Referred To | | | | | Procedures | Contact | Contact | + +--------+ + + + + | Pending | | Radiology | Diagnoses | See, | | | Review | | | Pain | Medical | | | | | | Procedures | Record [address] | | | | | | MRI lumbar | [address] | | | | | | spine | avenue | | | | | | without | [place] | | | | | | contrast | [address] | | | | | | | Phone: | | | | | | | [phone] | | | | | | | Fax: | | | | | | | [phone] | | + +--------+ + + + + Encounter Details +--------+ + + + + | Date | Type | Department | Care Team | Description | +--------+ + + + + | 05/20/ | Hospital | [facility] | See, Medical | Pain | | 2017 | Encounter | [facility] | Record [address] | | | | | RADIOLOGY [address] | [facility] | | | | | [facility] | [place] [address] | | | | | [place] [address] | [phone] | | | | | [phone] | | | +--------+ + + + [...] Medications at Time of Discharge + + +-------+---------+ + + | Medication | Sig. | Disp. | Refills | Start | End Date | | | | | | Date | | + + +-------+---------+ + + | afatinib dimaleate | Take 30 mg by mouth | | | | | | (GILOTRIF) 30 MG | every morning before | | | | | | tablet | breakfast. | | | | | + + +-------+---------+ + + | albuterol | Take 2.5 mg by | | | | | | (PROVENTIL) (2.5 | nebulization 3 | | | | | | MG/3ML) 0.083% | (three) times daily. | | | | | | nebulizer solution | History of smoking, | | | | | | | COPD, and asthma | | | | | + + +-------+---------+ + + | Cholecalciferol | Take 1 capsule by | | | | | | (VITAMIN D) 2000 | mouth daily. | | | | | | UNITS CAPS | | | | | | + + +-------+---------+ + + | enoxaparin | Inject into the | | | | | | (LOVENOX) 100 MG/ML | skin every 12 | | | | | | SOLN | (twelve) hours. | | | | | + + +-------+---------+ + + | Ferrous Sulfate | Take 1 tablet by | | | | | | (IRON) 325 (65 FE) | mouth daily. | | | | | | MG TABS | | | | | | + + +-------+---------+ + + | fluticasone | Inhale 1 puff into | | | | | | furoate-vilanterol | the lungs daily. | | | | | | (BREO ELLIPTA) | | | | | | | 100-25 mcg/inh | | | | | | | inhaler | | | | | | + + +-------+---------+ + + | furosemide (LASIX) | Take 20 mg by mouth | | | | | | 20 MG tablet | daily. | | | | | + + +-------+---------+ + + | levothyroxine | Take 1 tablet by | | | 04/19/20 | | | (SYNTHROID, | mouth daily. | | | 12 | | | LEVOTHROID) 75 MCG | | | | | | | tablet | | | | | | + + +-------+---------+ + + | Magnesium 100 MG | Take 1 tablet by | | | | | | CAPS | mouth daily. | | | | | + + +-------+---------+ + + | Melatonin 2.5 MG | Take by mouth. | | | | | | CAPS | | | | | | + + +-------+---------+ + + | mirtazapine | Take 15 mg by mouth | | | | | | (REMERON) 15 MG | nightly. | | | | | | tablet | | | | | | + + +-------+---------+ + + | | Take 1 tablet by | | | | | | multivitamin-mineral | mouth daily. | | | | | | s (OCUVITE-LUTEIN) | | | | | | | tablet | | | | | | + + +-------+---------+ + + | omeprazole | Take 1 capsule by | | | 04/20/20 | | | (PRILOSEC) 20 MG | mouth 2 (two) times | | | 12 | | | capsule | daily. | | | | | + + +-------+---------+ + + | pantoprazole | Take 40 mg by mouth | | | | | | (PROTONIX) 40 MG | every morning before | | | | | | tablet | breakfast. | | | | | + + +-------+---------+ + + | PLAVIX 75 MG | Take 1 tablet by | | | 04/22/20 | | | tablet | mouth daily. | | | 12 | | + + +-------+---------+ + + | predniSONE | Take 1 tablet by | | | 03/22/20 | | | (DELTASONE) 5 MG | mouth 2 (two) times | | | 12 | | | tablet | daily. | | | | | + + +-------+---------+ + + | ranitidine | Take 300 mg by mouth | | | | | | (ZANTAC) 300 MG | nightly. | | | | | | tablet | | | | | | + + +-------+---------+ + + | simvastatin | Take 1 tablet by | | | 03/03/20 | | | (ZOCOR) 40 MG tablet | mouth daily. | | | 12 | | + + +-------+---------+ + + | tiotropium | Inhale 2 puffs into | | | | | | (SPIRIVA RESPIMAT) | the lungs daily. | | | | | | 2.5 MCG/ACT inhaler | | | | | | + + +-------+---------+ + + | venlafaxine | Take 1 capsule by | | | 04/12/20 | | | (EFFEXOR-XR) 75 MG | mouth daily. | | | 12 | | | 24 hr capsule | | | | | | + + +-------+---------+ + + as of this encounter Plan of Treatment +--------+---------+ + + + | Date | Type | Specialty | Care Team | Description | +--------+---------+ + + + | 10/18/ | Office | Rheumatology | Santosh Sumner, | | | 2018 | Visit | | [address] | | | | | | [facility] | | | | | | [place] [address] | | | | | | [phone] | | | | | | | | +--------+---------+ + + + as of this encounter Procedures + +--------+ + + + | Procedure Name | Priori | Date/Time | Associated Diagnosis | Comments | | | ty | | | | + +--------+ + + + | MRI LUMBAR SPINE WO | Routin | 03/22/2018 | Pain | Results for this | | CONTRAST | e | 7:23 PM | | procedure are in the | | | | PDT | | results section. | + +--------+ + + + in this encounter Results MRI lumbar spine without contrast (03/22/2018 7:23 PM) + + + | Narrative | Performed At | + + + | This is a non-reportable procedure without a radiologist report and | [facility] | | is used for image storage only | RADIOLOGY | + + + + + + + + | Performing | Address | City/State/Zipcode | Phone Number | | Organization | | | | + + + + + | [facility] | [address] | [place] [address] | | + + + + + in this encounter Visit Diagnoses + + | Diagnosis | + + | Pain | + + | Generalized pain | + +"
--- OUTSIDE RECORDS SUMMARY | ~2018-08-18 | XMS | Clinical Summary ---
Demographics + + + | Address | [address] | | | [place] [address] | + + + | Home Phone [...] + | Author | [facility] | | | and [place] | + + + | Organization | [facility] | | | and [...] [place] | | | | | [address] | | + + + + + Care Team Providers + +------+ + | Care Director Of Sales Name | Role | Phone | + [...] | mirtazapine | | | 0 | 02/ | | Activ | | (REMERON) 15 MG | | | | 3 | | e | | tablet | | | | 19 | | | + + + +---------+------+------+-------+ | warfarin | Take 5 mg by mouth. | | | 04/02 | | Activ | | (COUMADIN) 5 mg | | | | 01/18 | | e | | tablet | | | | 18 | | | + + + +---------+------+------+-------+ + + [...] biopsy by | | interventional radiology at [facility] of the right lung massshows | | [...] by Dr. Beltran , thoracic surgeon at [facility] for | | consideration of bronchoscopy, [...] in August [address]49. Admitted to | | [facility] on September 27, 2014 for right-sided chest | | pain secondary to acute bronchitis.10. CT chest [facility] on September 28, 2014 demonstrated persistent 32 mm x 26 mm | | x 27 mm Right Hilar Mass. Last Assessment & Plan: Stephanie | | returned to the [facility] on | | November 09, 2014 for follow up of her locally recurrent RIGHT Lung | | cancer. Interval history is notable for the fact that Thea was | | admitted to [facility] in [place], [place] for acute | | exacerbation of chronic bronchitis. During her hospitalization | | there, a chest CT was performed demonstrating a persistent 32 x | | 26 mm right hilar mass. These images were reviewed subsequently | | at the [facility] on their PACS system. Radiographic | | abnormality in the right hilum may represent persistent tumor or | | simply residual, non viable tissue following combined modality | | therapy.Since therapeutic effect of irradiation may be delayed, I | | recommended waiting an additional month before proceeding with | | repeat PET scan to assess for persistent disease. PET/CT schedule | | at [facility] on December 21, 2014 with follow up at [facility] | | the following week. [...] | + + + | Rheumatoid arthritis(714.0) ([facility]) | 03/30/2013 | + + + + [...] | 2019 | Visit | | MD Germania ZAPATA | | | | | | [place] | | | | | | [address] | | | | | | | [...] Lot | + +------+--------+ +--------+--------+--------+ | [facility] Mri Powerport 8fr - | | | BARD ACCESS | | 10/20/ | [id number] | | [id number]: Qty: 1 on | | | SYSTEMS - | | 2016 | 0 / | | 07/28/2014 by , | | | ELLEN | | | /REYL0 | | Chalino Gu MD, [facility] | | | | | | 003 | + +------+--------+ +--------+--------+--------+ | Mini TightropeImplanted: Qty: | | Right: | ARTHREX | | 11/18/ | [id number]-891 | | 1 on 03/20/2015 by Randy, | | Hand | ARTHREX | | 2020 | 9DS / | | Giuliano Briones MD | | | INC. | | | /[id number] | | | | | | | [...] | [employer] | MODA | [id number] | Medica | | | | | HEALTH | | re | | | | | MDCR | | | | | + +--------+ +--------+ +---------+ | [employer] PLAN | MODA | [id number] | Medica | [phone] | | | MEDICAID HMO | HEALTH [...] joann/Anant | | 1945 | [phone] | [place] | | | jana | | | [phone] | [address] | + +--------+ +--------+ + +
--- OUTSIDE RECORDS SUMMARY | ~2018-08-18 | XMS | Clinical Summary ---
Demographics + + + | Address | [address] | | | [place] [address] | + + + | Home Phone [...] + + + | Author | [facility] | | | and [place] | + + + | Organization | [facility] | | [...] [place] | | | | | [address] | | + + + + + Care Team Providers + +------+ + | Care Furniture Stainer Name | Role | Phone | + [...] | + + + | Radiation pneumonitis ([facility]) | 03/08/2015 | + + + | Recurrent squamous cell carcinoma of lung ([facility]) | 07/11/2014 | + + + [...] biopsy by | | interventional radiology at [facility] of the right lung massshows | [...] by Dr. Beltran , thoracic surgeon at [facility] for | | consideration of [...] in August [address]49. Admitted to | | [facility] on September 27, 2014 for right-sided chest | | pain secondary to acute bronchitis.10. CT chest [facility] on September 28, 2014 demonstrated persistent 32 mm x 26 mm | | x 27 mm Right Hilar Mass. Last Assessment & Plan: Stephanie | | returned to the [facility] on | | November 09, 2014 for follow up of her locally recurrent RIGHT Lung | | cancer. Interval history is notable for the fact that Thea was | | admitted to [facility] in [place], [place] for acute | | exacerbation of chronic bronchitis. During her hospitalization | | there, a chest CT was performed demonstrating a persistent 32 x | | 26 mm right hilar mass. These images were reviewed subsequently | | at the [facility] on their PACS system. Radiographic | | abnormality in the right hilum may represent persistent tumor or | | simply residual, non viable tissue following combined modality | | therapy.Since therapeutic effect of irradiation may be delayed, I | | recommended waiting an additional month before proceeding with | | repeat PET scan to assess for persistent disease. PET/CT schedule | | at [facility] on December 21, 2014 with follow up at [facility] | | the [...] | + + + | Rheumatoid arthritis(714.0) ([facility]) | 03/30/2013 | + + + [...] | 2018 | Visit | | [address] [facility] | | | | | | [place] | | | | | | [address] | | | | | | | [...] | BARD ACCESS | | 03/20/ | [id number] | | [id number]: Qty: 1 on | | | SYSTEMS [...] | | | INC. | | | /[id number] | | | | | | | [...] | [employer] | MODA | [id number] | Medica | | | | | HEALTH | | re | | | | | MDCR | | | | | + +--------+ +--------+ +---------+ | [employer] PLAN | MODA | [id number] | Medica | [phone] | | | MEDICAID O | HEALTH [...] [place] | al/Anant | | 1945 | [phone] | [place] | | | jana | | | [phone] | [address] | + +--------+ +--------+ + +
--- OUTSIDE RECORDS SUMMARY | ~2018-08-18 | XMS | Encounter Summary ---
Demographics + + + | Address | [address] | | | [place] [address] | + + + | Home Phone | | + + + | Preferred Language | Unknown | + + + | Marital Status | | + + + | Druze Affiliation | Unknown | + + + | Race | Unknown | + + + | Ethnic Group | Unknown | + + + Author + + + | Author | [facility] | + + + | Organization | [facility] | + + + | Address | Unknown | + + + | Phone | Unavailable | + + + Support + + +---------+ + | Name | Relationship | Address | Phone | + + +---------+ + | Mirza Bee | ECON | Unknown | | + + +---------+ + Care Team Providers + +------+ + | Care Chief Radiologic Technologist Name | Role | Phone | + [...] | | unspecified | [address] | | | | | ([facility]) | [address] | [place] | | | | | Billed out | 110 | [address] | | | | | for M13.00 | [place], | Phone: | | | | | | [place] | [phone] | | | | | | [address] | Fax: | | | | | | Phone: | [phone] | | | | | | [phone] | | | | | | | Fax: | | | | | | | [phone] | | + +--------+ + + + + Encounter Details +--------+---------+ + + + | Date | Type | Department | Care Team | Description | +--------+---------+ + + + | 07/20/ | Office | [facility] | Abeba Douglas MD | Rheumatoid arthritis | | 2019 | Visit | Rheumatology [address] | with positive | | | | [address] | Place [place] | rheumatoid factor, | | | | [place] [address] | [address] | involving | | | | [phone] | | unspecified site | | | [...] you can send us a message/request u [employer] or call our office at [phone]. To reach my MO-C type extension [phone]. If you are unable to reach a [...] can also [facility] If you are experiencing an [...] cancer: She is a 69-year-old woman from [facility] who was previously being diagnosed with mo [...] Anemia Arthritis COPD (chronic obstructive pulmonary disease) ([facility]) Depression GERD (gastroesophageal reflux disease) Hx of blood clots Hyperlipidemia Hypertension Joint pain Malignant neoplasm (HCC) MARCE (obstructive sleep apnea) 08/02/2013 Other chronic pain RA (rheumatoid arthritis) ([facility]) Stroke ([facility]) 2004 Thyroid disease Unspecified visual disturbance [...] from Care everywhereThe labs were reviewed in [facility] Joint Exam Assessment and Plan: Rheumatoid arthritis [...] | 2018 | Visit | | [address] | | | | | | [facility] | | | | | | [place] [address] | | | | | | [phone] | | | | | | | [...] + | [facility] | [address] | [place] [address] | [phone] | | LABORATORY | Blvd. | | [...] + + | [facility] | [address] | [place] [address] | [phone] | | LABORATORY | Blvd. | | [...] | + + + + + | [facility] | [address] | [place] [address] | [phone] | | LABORATORY | Blvd. | | | + + + + + CBC W/Auto Diff (Reflex to Manual) (07/20/2018 12:47 PM) + + + + + | Component | Value | Ref Range | Performed At | + + + + + | WBC | 14.06 (H) | 3.80 - 11.00 10*3/uL | [facility] | | | | | LABORATORY | [...] | + + + + + | [facility] | [address] | [place] [address] | [phone] | | LABORATORY | Blvd. | | [...]
--- OUTSIDE RECORDS SUMMARY | ~2018-08-18 | XMS | Clinical Summary ---
Demographics + + + | Address | [address] | | | [place] [address] | + + + | Home Phone | | + + + | Preferred Language | Unknown | + + + | Marital Status | Single | + + + | Druze Affiliation [...] Team Providers + +------+ + | Care Bottoming Machine Operator Name | Role | Phone | + +------+ + | Ayana Taylor MD | PP | Unavailable | + +------+ + Source Comments KARISHMA is fully live on both [facility] and [facility] Allergies Not on File Current Medications Not [...] + + + + + | Pneumococcal (Adult) | | | | | (1 of 2 - PCV13) | 9 | | | + + + + + | Influenza (Flu) | | | | | vaccination (#1) | 8 | | | + + + + + Results Not on filefrom Last 3 Months Insurance + +--------+ +--------+-------+---------+ | Payer | Benefi | Subscriber | Type | Phone | Address | | | t Plan | ID | | | | | | / | | | | | | | Group | | | | | + +--------+ +--------+-------+---------+ | GEOLOGICAL SAMPLE TESTER MEDICAID | GEOLOGICAL SAMPLE TESTER | xxxxxxxx | Medica | | | | | [place] | | id | | | | | [place] | | | | | + +--------+ +--------+-------+---------+ + +--------+ +--------+ + + | Guarantor Name | Accoun | Relation to | Date | Phone | Billing Address | | | t Type | Patient | of | | | | | | | | | | + +--------+ +--------+ + + | TENA CARMONA | Person | Self [birth year] Home: | [address] | | | al/Fam | | 1945 | [phone] | [place] [address] | | | jana | | | [phone] | | + +--------+ +--------+ + +"
--- OUTSIDE RECORDS SUMMARY | ~2018-08-18 | XMS | Encounter Summary ---
Demographics + + + | Address | [address] | | | [place] [address] | + + + | Home Phone | | + + + | Preferred Language | Unknown | + + + | Marital Status | | + + + | Moravian Affiliation | Unknown | + + + | Race | Unknown | + + + | Ethnic Group | Unknown | + + + Author + + + | Author | [facility] | + + + | Organization | [facility] | + + + | Address | Unknown | + + + | Phone | Unavailable | + + + Support + + +---------+ + | Name | Relationship | Address | Phone | + + +---------+ + | Mirza Bee | ECON | Unknown | | + + +---------+ + Care Team Providers + +------+ + | Care Car Unloader Name | Role | Phone | + [...] | [address] | [place] | | | | | [place], [place] | [address] | | | | | [address] | | | | | | [phone] | | | +--------+ + + + [...] | 2018 | Visit | | [address] | | | | | | [facility] | | | | | | [place] [address] | | | | | | [phone] | | | | | | | | +--------+---------+ + + + as of this encounter Visit Diagnoses Not on filein this encounter"
--- OUTSIDE RECORDS SUMMARY | ~2018-08-18 | XMS | Encounter Summary ---
Demographics + + + | Address | [address] | | | [place] [address] | + + + | Home Phone | | + + + | Preferred Language | Unknown | + + + | Marital Status | | + + + | Anabaptism Affiliation | Unknown | + + + | Race | Unknown | + + + | Ethnic Group | Unknown | + + + Author + + + | Author | [facility] [employer] | + + + | Organization | [facility] | + + + | Address | Unknown | + + + | Phone | Unavailable | + + + Support + + +---------+ + | Name | Relationship | Address | Phone | + + +---------+ + | Mirza Bee | ECON | Unknown | | + + +---------+ + Care Team Providers + +------+ + | Care Diamond Wheel Edger Name | Role | Phone | + +------+ + | Davis Ivan MD | PCP | Unavailable | + +------+ + Encounter Details +--------+ + + + + | Date | Type | Department | Care Team | Description | +--------+ + + + + | 06/03/ | Telephone | [facility] | [place], | | | 2018 | | Rheumatology [address] | [place] | | | | | [address] | | | | | | [place] [address] | | | | | | [phone] | | | +--------+ + + + [...] | 2018 | Visit | | [address] | | | | | | [place] [address] | | | | | | [place] [address] | | | | | | [phone] | | | | | | | | +--------+---------+ + + + as of this encounter Visit Diagnoses Not on filein this encounter"
--- OUTSIDE RECORDS SUMMARY | ~2018-08-18 | XMS | Encounter Summary ---
Demographics + + + | Address | [address] | | | [place] [address] | + + + | Home Phone | | + + + | Preferred Language | Unknown | + + + | Marital Status | | + + + | Judaism Affiliation | Unknown | + + + | Race | Unknown | + + + | Ethnic Group | Unknown | + + + Author + + + | Author | [facility] | + + + | Organization | [facility] [employer] [facility] | + + + | Address [...] Comments | +--------+ + | Other | [facility] reports for 07/29/18 | +--------+ + Encounter Details +--------+ + + + + | Date | Type | Department | Care Team | Description | +--------+ + + + + | 07/29/ | Documentati | [facility] | Jacqueline Govea, | Other ([facility] | | 2019 | on Only | Rheumatology [address] | [facility] | reports for | | | | [address] | | 07/29/18) | | | | [place] [address] | | | | | | [phone] | | | +--------+ + + + [...] | | | | | [place] [address] | | | | | | [phone] | | | | | | | | +--------+---------+ + + + as of this encounter Visit Diagnoses Not on filein this encounter"
--- OUTSIDE RECORDS SUMMARY | ~2018-08-18 | XMS | Clinical Summary ---
Demographics + + + | Address | [address] | | | [place] [address] | + + + | Home Phone | | + + + | Preferred Language | Unknown | + + + | Marital Status | Single | + + + | Hoahaoism Affiliation [...] + +------+ + | Care Photographic Equipment Assembler Name | Role | Phone | + +------+ + | Ayana Taylor MD | PP | Unavailable | + +------+ + Source Comments [facility]ARISHMA is fully live [facility] both [facility] and [facility] Allergies Not on File Current Medications [...] | | | + +--------+ +--------+-------+---------+ | LONG LINES OPERATOR MEDICAID | LONG LINES OPERATOR | xxxxxxxx | Medica | | | [...] | | al/Fam | | 1945 | [phone] | [place] [address] | | | jana | | | [phone] | | + +--------+ +--------+ + +"
--- OUTSIDE RECORDS SUMMARY | ~2018-08-18 | XMS | Encounter Summary ---
Demographics + + + | Address | [address] | | | [place] [address] | + + + | Home Phone | | + + + | Preferred Language | Unknown | + + + | Marital Status | | + + + | Zoroastrianism Affiliation | Unknown | + + + | Race | Unknown | + + + | Ethnic Group | Unknown | + + + Author + + + | Author | [facility] [employer] | + + + | Organization | [facility] [employer] [facility] | + + + | Address | Unknown | + + + | Phone | Unavailable | + + + Support + + +---------+ + | Name | Relationship | Address | Phone | + + +---------+ + | Mirza Bee | ECON | Unknown | | + + +---------+ + Care Team Providers + +------+ + | Care Police Inspector Name | Role | Phone | + +------+ + | Caitlin Chino MD | PCP | | + +------+ + Encounter Details +--------+ + + + + | Date | Type | Department | Care Team | Description | +--------+ + + + + | 07/20/ | Telephone | [facility] | Abeba Douglas MD | | | 2019 | | Rheumatology [address] | [address] | | | | | [address] | Place [place] | | | | | [place] [address] | [address] | | | | | [phone] | | | +--------+ + + + [...] | 2018 | Visit | | [address] | | | | | | [place] | | | | | | [place] [address] | | | | | | [phone] | | | | | | | | +--------+---------+ + + + as of this encounter Visit Diagnoses Not on filein this encounter"
--- OUTSIDE RECORDS SUMMARY | ~2018-08-18 | XMS | Encounter Summary ---
Demographics + + + | Address | [address] | | | [place] [address] | + + + | Home Phone [...] [place] | | | | | [address] | | + + + + + Care Team Providers + +------+ + | Care Lithographing Machine Operator Name | Role | Phone [...] | s, | [address] | [place] [address] | | | | | unspecified | [place], | Phone: | | | | | | [place] | [phone] | | | | | | [address] | Fax: | | | | | | Phone: | [phone] | | | | | | [phone] | | | | | | | Fax: | | | | | | | [phone] | | +--------+--------+ + + + + Encounter Details +--------+---------+ + + + | Date | Type | Department | Care Team | Description | +--------+---------+ + + + | 07/19/ | Office | [facility] [place] | Giuliano Padilla, | Trigger finger of | | 2019 | Visit | ORTHOPEDIC SURGERY | MD [address] | left thumb (Primary | | | | [address] | [place] | Dx); Trigger middle | | | | [place] | [id number] | finger of left hand; | | | | [address] | | Trigger ring finger | | | | [phone] | | of left hand | +--------+---------+ [...] [place] | | | | | | [address] | | | | | | | [...]
--- OUTSIDE RECORDS SUMMARY | ~2018-08-18 | XMS | Clinical Summary ---
Demographics + + + | Address | [address] | | | [place] [address] | + + + | Home Phone [...] Team Providers + +------+ + | Care Plumber And Tinner Name | Role | Phone | + +------+ + | Ayana Taylor MD | PP | Unavailable | + +------+ + Source Comments KARISHMA is fully live [facility] both [facility] and [facility] Allergies Not on File Current Medications Not [...] | | | + +--------+ +--------+-------+---------+ | SAP SENIOR DEVELOPER MEDICAID | SAP SENIOR DEVELOPER | xxxxxxxx | Medica | | | [...] | | al/Fam | | 1945 | [phone] | [place] [address] | | | jana | | | [phone] | | + +--------+ +--------+ + +"
--- OUTSIDE RECORDS SUMMARY | ~2018-08-18 | XMS | Encounter Summary ---
Demographics + + + | Address | [address] | | | [place] [address] | + + + | Home Phone | | + + + | Preferred Language | Unknown | + + + | Marital Status | | + + + | Voodoo Affiliation | Unknown | + + + | Race | Unknown | + + + | Ethnic Group | Unknown | + + + Author + + + | Author | [facility] | + + + | Organization | [facility] [employer] [facility] | + + + | Address | Unknown | + + + | Phone | Unavailable | + + + Support + + +---------+ + | Name | Relationship | Address | Phone | + + +---------+ + | Mirza Bee | ECON | Unknown | | + + +---------+ + Care Team Providers + +------+ + | Care Supervising Chef Name | Role | Phone | + +------+ + | Davis Ivan MD | PCP | Unavailable | + +------+ + Encounter Details +--------+ + + + + | Date | Type | Department | Care Team | Description | +--------+ + + + + | 06/03/ | Telephone | [facility] | [place], | | | 2018 | | Rheumatology [address] | [place] | | | | | [address] | | | | | | [place] [address] | | | | | | [phone] | | | +--------+ + + + [...] | 2018 | Visit | | [address] | | | | | | [place] [address] | | | | | | [place] [address] | | | | | | [phone] | | | | | | | | +--------+---------+ + + + as of this encounter Visit Diagnoses Not on filein this encounter"
--- OUTSIDE RECORDS SUMMARY | ~2018-08-18 | XMS | Encounter Summary ---
Demographics + + + | Address | [address] | | | [place] [address] | + + + | Home Phone | | + + + | Preferred Language | Unknown | + + + | Marital Status | | + + + | Sabianism Affiliation | Unknown | + + + | Race | Unknown | + + + | Ethnic Group | Unknown | + + + Author + + + | Author | [facility] [employer] [facility] | + + + | Organization | [facility] | + + + | Address | Unknown | + + + | Phone | Unavailable | + + + Support + + +---------+ + | Name | Relationship | Address | Phone | + + +---------+ + | Mirza Bee | ECON | Unknown | | + + +---------+ + Care Team Providers + +------+ + | Care Shelter Director Name | Role | Phone | + +------+ + | Caitlin Chino MD | PCP | | + +------+ + Reason for Referral MRI/CAT Scan (Routine) + +--------+ + + [...] | | | | MRI lumbar | [address] | | | | | | spine | avenue | | | | | | without | [place] | | | | | | contrast | [address] | | | | | | | Phone: | | | | | | | [phone] | | | | | | | Fax: | | | | | | | [phone] | | + +--------+ + + + + Encounter Details +--------+ + + + + | Date | Type | Department | Care Team | Description | +--------+ + + + + | 05/20/ | Ancillary | [facility] | See, Medical | Pain | | 2018 | Orders | [facility] MRI | Record [address] | | | | | [address] [facility] | [address] [place] [address] | | | | | [place] [address] | [place] [address] | | | | | [phone] | [phone] | | | | | | | [...] | 2018 | Visit | | [address] | | | | | | [facility] | | | | | | [place] [address] | | | | | | [phone] | | | | | | | | +--------+---------+ + + + as of this encounter Results MRI lumbar spine without contrast (03/22/2018 7:23 PM) + + + | Narrative | Performed At | + + + | This is a non-reportable procedure without a radiologist report and | [facility] | | is used for image storage only | RADIOLOGY | + + + + + + + + | Performing | Address | City/State/Zipcode | Phone Number | | Organization | | | | + + + + + | [facility] | [address] | [place] [address] | | + + + + + in this encounter Visit Diagnoses + + | Diagnosis | + + | Pain | + + | Generalized pain | + +"
--- OUTSIDE RECORDS SUMMARY | ~2018-08-18 | XMS | Encounter Summary ---
Demographics + + + | Address | [address] | | | [place] [address] | + + + | Home Phone | | + + + | Preferred Language | Unknown | + + + | Marital Status | | + + + | Restorationism Affiliation | Unknown | + + + | Race | Unknown | + + + | Ethnic Group | Unknown | + + + Author + + + | Author | [facility] | + + + | Organization | [facility] [facility] | + + + | Address | Unknown | + + + | Phone | Unavailable | + + + Support + + +---------+ + | Name | Relationship | Address | Phone | + + +---------+ + | Mirza Bee | ECON | Unknown | | + + +---------+ + Care Team Providers + +------+ + | Care Litigation Manager Name | Role | Phone | + +------+ + | Caitlin Chino MD | PCP | | + +------+ + Encounter Details +--------+ + + + + | Date | Type | Department | Care Team | Description | +--------+ + + + + | 05/20/ | Procedure | [facility] | | | | 2017 | Pass | [facility] | | | | | | RADIOLOGY [address] | | | | | | [address] | | | | | | [place] [address] | | | | | | [phone] | | | +--------+ + + + [...] | 2018 | Visit | | [address] | | | | | | [place] [address] | | | | | | [place] [address] | | | | | | [phone] | | | | | | | | +--------+---------+ + + + as of this encounter Visit Diagnoses Not on filein this encounter"
--- OUTSIDE RECORDS SUMMARY | ~2018-08-18 | XMS | Encounter Summary ---
Demographics + + + | Address | [address] | | | [place] [address] | + + + | Home Phone | | + + + | Preferred Language | Unknown | + + + | Marital Status | | + + + | Yazidi Affiliation | Unknown | + + + | Race | Unknown | + + + | Ethnic Group | Unknown | + + + Author + + + | Author | [facility] [employer] | + + + | Organization | [facility] | + + + | Address | Unknown | + + + | Phone | Unavailable | + + + Support + + +---------+ + | Name | Relationship | Address | Phone | + + +---------+ + | Mirza Bee | ECON | Unknown | | + + +---------+ + Care Team Providers + +------+ + | Care Beautician Apprentice Name | Role | Phone | + +------+ + | Caitlin Chino MD | PCP | | + +------+ + Encounter Details +--------+ + + + + | Date | Type | Department | Care Team | Description | +--------+ + + + + | 07/20/ | Telephone | [facility] | Abeba Douglas MD | | | 2019 | | Rheumatology [address] | [address] | | | | [address] | [address] [place] | | | | | [place] [address] | [address] | | | | | [phone] | | | +--------+ + + + [...] | 2018 | Visit | | [address] | | | | | | [place] [address] | | | | | | [place] [address] | | | | | | [phone] | | | | | | | | +--------+---------+ + + + as of this encounter Visit Diagnoses Not on filein this encounter"
--- OUTSIDE RECORDS SUMMARY | ~2018-08-18 | XMS | Encounter Summary ---
Demographics + + + | Address | [address] | | | [place] [address] | + + + | Home Phone | | + + + | Preferred Language | Unknown | + + + | Marital Status | | + + + | Quaker Affiliation | Unknown | + + + | Race | Unknown | + + + | Ethnic Group | Unknown | + + + Author + + + | Author | [facility] | + + + | Organization | [facility] | + + + | Address | Unknown | + + + | Phone | Unavailable | + + + Support + + +---------+ + | Name | Relationship | Address | Phone | + + +---------+ + | Mirza Bee | ECON | Unknown | | + + +---------+ + Care Team Providers + +------+ + | Care Receiving Worker Name | Role | Phone | + +------+ + | Davis Ivan MD | PCP | Unavailable | + +------+ + Reason for Visit +--------+ + | Reason | Comments | +--------+ + | Other | [facility] 05/13/2018 | +--------+ + Encounter Details +--------+ + + + + | Date | Type | Department | Care Team | Description | +--------+ + + + + | 06/09/ | Documentati | [facility] | Silvana Ceja, | Other ([facility] | | 2019 | on Only | [facility] | [facility] | 05/13/2018) | | | | [address] | | | | | | [place] | | | | | | [address] | | | | | | [phone] | | | +--------+ + + + [...] + as of this encounter Progress Notes Silvana Ceja CMA - 06/09/2018 8:33 AM PSTREFERRAL AUTHORIZATION LANA BALDWIN in this encounter Plan of Treatment +--------+---------+ + + + | Date | Type | Specialty | Care Team | Description | +--------+---------+ + + + | 10/18/ | Office | Rheumatology | [place], | | | 2018 | Visit | | [address] | | | | | | [facility] | | | | | | [place] [address] | | | | | | [phone] | | | | | | | | +--------+---------+ + + + as of this encounter Visit Diagnoses Not on filein this encounter"
--- OUTSIDE RECORDS SUMMARY | ~2018-08-18 | XMS | Clinical Summary ---
Demographics + + + | Address | [address] | | | [place] [address] | + + + | Home Phone | | + + + | Preferred Language | Unknown | + + + | Marital Status | Single | + + + | Roman Catholic [...] Team Providers + +------+ + | Care Welding Machine Operator Gas Name | Role | Phone | + +------+ + | Ayana Taylor MD | PP | Unavailable | + +------+ + Source Comments KARISHMA is fully live on both [facility] and [facility] Allergies Not on File Current Medications [...] | | | + +--------+ +--------+-------+---------+ | TRAINER MEDICAID | TRAINER | xxxxxxxx | Medica | | | [...] | | al/Fam | | 1945 | [phone] | [place] [address] | | | jana | | | [phone] | | + +--------+ +--------+ + +"
--- OUTSIDE RECORDS SUMMARY | ~2018-08-18 | XMS | Clinical Summary ---
Demographics + + + | Address | [address] | | | [place] [address] | + + + | Home Phone | | + + + | Preferred Language | Unknown | + + + | Marital Status | | + + + | Restorationism Affiliation | Unknown | + + + | Race | Unknown | + + + | Ethnic Group | Unknown | + + + Author + + + | Author | [facility] | + + + | Organization | [facility] | + + + | Address | Unknown | + + + | Phone | Unavailable | + + + Support + + +---------+ + | Name | Relationship | Address | Phone | + + +---------+ + | Mirza Bee | ECON | Unknown | | + + +---------+ + Care Team Providers + +------+ + | Care Playground Attendant Name | Role | Phone | [...] tablets by | 32 | 2 | 02/1 | | Activ | | MG | mouth once a week. | tablet | | 02/18 | | e | | tabletIndications: | | | | 19 | | | | Rheumatoid Arthritis | | | | | | | + + +--------+---------+------+------+-------+ | methotrexate 2.5 | take 4 tablets by | 16 | 2 | 02/0 | 02/1 | Disco | | MG | mouth ONCE A WEEK | tablet | | 09/18 | 02/18 | ntinu | | tabletIndications: | | | | 19 | 19 | ed | | Rheumatoid Arthritis | | | [...] | 2.CT-guided biopsy by interventional radiology at [facility] of the | | right lung [...] | metastatic disease 4. seen by Dr. Mace , thoracic surgeon at | | [facility] for consideration of bronchoscopy, right | | thoracoscopy, thoracic lymphadenectomy to rule out N2 disease, | | probable lower lobectomy, possible thoracotomy . Date: September 16, | | 2013,5. Right minimally invasive lower lobe lobectomy and | | minimally invasive thoracoscopic lymphadenectomy : Dr. José Miguel mace | | : 09/16/13:3.2x 3.0x1.7 cm tumor, [...] in August 20149. | | Admitted to [facility] on September 27, 2014 for | | right-sided chest pain secondary to acute bronchitis.10. CT chest | | [facility] on September 28, 2014 demonstrated persistent | | 32 mm x 26 mm x 27 mm Right Hilar Mass.Last Assessment & Plan: | | Stephanie returned to the [facility] | | on November 09, 2014 for follow up of her locally recurrent RIGHT | | Lung cancer. Interval history is notable for the fact that Thea | Tim was admitted to [facility] in [place], [place] for | | acute exacerbation of chronic bronchitis. During her | | hospitalization there, a chest CT was performed demonstrating a | | persistent 32 x 26 mm right hilar mass. These images were | | reviewed subsequently at the [facility] on their PACS | | system. Radiographic abnormality in the right hilum may represent | | persistent tumor or simply residual, non viable tissue following | | combined modality therapy.Since therapeutic effect of | | irradiation may be delayed, I recommended waiting an additional | | month before proceeding with repeat PET scan to assess for | | persistent disease. PET/CT schedule at [facility] on December 21, 2014 | | with follow up at [facility] the following week. | + + + [...] | Documentati | | Jacqueline Govea, | Other ([facility] | | 2019 | on Only | | TROPHY ASSEMBLER | reports for | | | | [...] | Documentati | | Silvana Ceja, | Other ([facility] | | 2018 | on Only | | TROPHY ASSEMBLER | 05/13/2018) | +--------+ + + + + | 06/03/ | Telephone | Tim Braun | | 2018 | | | PARADISE Lord | | +--------+ + + + + | 05/21/ | Documentati | | Fredy Morris, | | | 2017 | on Only | | | | +--------+ + + + + | 05/20/ | Hospital | | See, Medical | Pain | | 2018 | Encounter | | Record | | +--------+ + + + + | 05/20/ | Procedure | | | | | 2018 | Pass | | | | +--------+ + + + + | 05/20/ | Ancillary | | See, Medical | Pain | | 2018 | Orders | | Record | | +--------+ + + + + [...] | 2018 | Visit | | [facility] [address] | | | | | | [facility] | | | | | | [place] [address] | | | | | | [phone] | | | | | | | [...] | N/A: | | | 08/20/ | [id number] | | Dbx 2.5ml - | | Spine | | | 2014 | | | [id number]: | | Cervic | | | | /10367 | | Qty: 1 on 01/19/2013 by | | al | | | | [id number] | | Silviano Cabrera MD | | | | | | [id number] | | | | | | | | 8 / | + +------+--------+ +--------+--------+--------+ | Cage Triad Allograft | | N/A: | | | 08/16/ | [id number] | | [id number] - | | Spine | | | 2018 | 7 | | [id number]: Qty: 1 | | Cervic | | | | /25554 | | on 01/19/2013 by Rick, | Tim david | | | | 8-185 | | MD Silviano | | | | | | / | + +------+--------+ +--------+--------+--------+ | Cage Triad Allograft 6mm - | | N/A: | | | 06/23/ | [id number] | | [id number]: Qty: 1 | | Spine | | | 2018 | 6 | | on 01/19/2013 by Rick, | | Cervic | | | | /54526 | | MD Silviano | | al | | | | 0-206 | | | | | | | | / | + +------+--------+ +--------+--------+--------+ | Screw Vectra Self Drilling | | N/A: | | | | 04.613 | | Variable Angle 4.0x14mm - | | Spine | | | | .514 | | [id number]: Qty: 2 on | | Cervic | | | | /16251 | | 01/19/2013 by Silviano Cabrera, | | al | | | | 514 / | | MD | | | | | | | + +------+--------+ +--------+--------+--------+ | Screw Vectra Self Drilling | | N/A: | | | | 04.613 | | Variable Angle [id number] - | | Spine | | | | .516 | | [id number]: Qty: 2 on | | Cervic | | | | /03665 | | 01/19/2013 by Sivliano Cabrera, | | al | | | | 516 / | | MD | | | | | | | + +------+--------+ +--------+--------+--------+ | Screw Vectra Self Drilling | | N/A: | | | | 04.613 | | Fixed Angle 4.0x14mm - | | Spine | | | | .714 | | [id number]: Qty: 2 on | | Cervic | | | | /44509 | | 01/19/2013 by Silviano Cabrera, | | al | | | | 714 / | | MD | | | | | | | + +------+--------+ +--------+--------+--------+ | Plate Vectra Cervical 30mm - | | N/A: | | | | 04.613 | | [id number]: Qty: 1 on | | Spine | | | | .130 | | 01/19/2013 by Silviano Cabrera, | | Cervic | | | | /03250 | | MD | | al | | | | 130 / | + +------+--------+ +--------+--------+--------+ | Allograft Putty Freeze Dried | | N/A: | | | 10/20/ | 925257 | | Dbx 2.5ml - | | Spine | | | 2014 | | | [id number]: | | Cervic | | | | /41834 | | Qty: 1 on 04/06/2013 by | | al | | | | 343654 | | Silviano Cabrera MD | | | | | | 506751 | | | | | | | | 3 / | + +------+--------+ +--------+--------+--------+ | Screw Vuepoint Post Cerv | | N/A: | | | | 448317 | | 3.5x12mm - [id number]: | | Spine | | | | 2 | | Qty: 3 on 04/06/2013 by | | Cervic | | | | /46531 | | Silviano Cabrera MD | | al | | | | 12 / | + +------+--------+ +--------+--------+--------+ | Screw Vuepoint Post Cerv | | N/A: | | | | 969653 | | 3.5x14mm - [id number]: | | Spine | | | | 4 | | Qty: 1 on 04/06/2013 by | | Altagraciaic | | | | /22582 | | Silviano Cabrera MD | | al | | | | 14 / | + +------+--------+ +--------+--------+--------+ | Sirni Vuepoint 3.5x60mm - | | N/A: | | | | 494886 | | [id number]: Qty: 1 on | | Spine | | | | 0 | | 04/06/2013 by Silviano Cabrera, | | Cervic | | | | /36139 | | MD | | al | | | | 60 / | + +------+--------+ +--------+--------+--------+ | Screw Vuepoint Post Cerv Set | | N/A: | | | | [id number] | | Tulip & Hook - | | Spine | | | | 0 | | [id number]: Qty: 4 on | | Cervic | | | | /18985 | | 04/06/2013 by Silviano Cabrera, | | al | | | | 00 / | | MD | | | | | | | + +------+--------+ +--------+--------+--------+ | Allograft Osteocell 10cc | | | | | 08/25/ | [id number] | | [id number] - | | | | | 2018 | 0 | | [id number]: Qty: 1 | | | | | | /21787 | | on 04/06/2013 | | | | | | 1542 / | + +------+--------+ +--------+--------+--------+ | Allograft Putty Freeze Dried | | N/A: | | | 11/10/ | [id number] | | Demineralized Bone Matrix Dbx | | Spine | | | 2014 | | | 1ml - | | Cervic | | | | /50956 | | [id number]: | | al | | | | 545872 | | Qty: 1 on 04/06/2013 by | | | | | | [id number] | | Silviano Cabrera MD | | | | | | 1 / | + +------+--------+ +--------+--------+--------+ | Graft Sponge Kit Bone Infuse | | | MEDTRONIC | | | [id number] | | Medium 56ml - | | | | | | 0 / | | [id number]: Qty: 1 on | | | | | | /[id number] | | 03/29/2014 by Silviano Cabrera, | | | | | | 05AA6 | | MD | | | | | | | + +------+--------+ +--------+--------+--------+ | Triad Alif Allograft | | | NUVASIVE | | 08/02/ | 014181 | | [id number]: Qty: 1 on | | | | | 2018 | 4 | | 03/29/2014 by Silviano Cabrera, | | | | | | /71604 | | MD | | | | | | 0-065 | | | | | | | | / | + +------+--------+ +--------+--------+--------+ | Screw Brigade 5.5x25mm - | | | NUVASIVE | | | 941908 | | [id number]: Qty: 2 on | | | | | | / | | 03/29/2014 by Silviano Cabrera, | | | | | | | | MD | | | | | | | + +------+--------+ +--------+--------+--------+ | Screw Brigade 5.5x30mm - | | | NUVASIVE | | | [id number] | | [id number]: Qty: 4 on | | | | | | 0 / / | | 03/29/2014 by Silviano Cabrera, | | | | | | | | MD | | | | | | | + +------+--------+ +--------+--------+--------+ | Evelyne Batista Allograft | | | NUVASIVE | | 07/14/ | 142727 | | [id number] - | | | | | 2012 | 2 / / | | [id number]: Qty: 1 on | | | | | | | | 03/29/2014 by Silviano Cabrera, | | | | | | | | MD | | | | | | | + +------+--------+ +--------+--------+--------+ | Svetlana Iraheta 5.5x35mm - | | | NUVASIVE | | | 298627 | | [id number]: Qty: 2 on | | | | | | 5 / / | | 03/29/2014 by Silviano Cabrera, | | | | | | | | MD | | | | | | | + +------+--------+ +--------+--------+--------+ | Allograft Block Extra Large | | N/A: | NUVASIVE | | 09/27/ | [id number] | | Formagraft Large - | | Back | | | 2018 | 5 / | | [id number]: Qty: 1 on | | | | | | /FG-14 | | 03/29/2014 by Silviano Cabrera, | | | | | | 13 | | MD | | | | | | | + +------+--------+ +--------+--------+--------+ | Graft Sponge Kit Bone Infuse | | N/A: | MEDTRONIC | | 08/27/ | [id number] | | Large 8ml - | | Back | | | 2015 | 0 / | | [id number]: Qty: 1 on | | | | | | /M1112 | | 03/29/2014 by Silviano Cabrera, | | | | | | 06AAY | | | | | | | | | + +------+--------+ +--------+--------+--------+ | Allograft Freeze Dried | | N/A: | LIFENET | | 11/13/ | [id number] | | Demineralized Cancellous Mix | | Spine | HEALTH | | 2017 | T | | Ic Graft Chamber 15cc - | | Lumbar | | | | /87559 | | [id number]: Qty: | | | | | | 57-303 | | 1 on 03/31/2014 by Rick, | | | | | | 1 / | | MD Silviano | | | | | | | + +------+--------+ +--------+--------+--------+ | Graft Sponge Kit Bone Infuse | | N/A: | MEDTRONIC | | 04/01/ | [id number] | | Medium 56ml - | | Spine | | | 2014 | 0 | | [id number]: Qty: 1 | | Lumbar | | | | /[id number] | | on 03/31/2014 by Rick, | | | | | | 05AAW | | MD Silviano | | | | | | / | + +------+--------+ +--------+--------+--------+ | Allograft Freeze Dried | | N/A: | LIFENET | | 11/01/ | [id number] | | Demineralized Cancellous Mix | | Spine | HEALTH | | 2016 | T | | Ic Graft Chamber 15cc - | | Lumbar | | | | /02390 | | [id number]: Qty: | | | | | | 37-301 | | 1 on 03/31/2014 by Rick, | | | | | | 1 / | | MD Silviano | | | | | | | + +------+--------+ +--------+--------+--------+ | Screw Precept Shank Mod | | N/A: | NUVASIVE | | | [id number] | | 7.5x50mm - [id number]: | | Spine | | | | 0 / / | | Qty: 4 on 03/31/2014 by | | Lumbar | | | | | | Silviano Cabrera MD | | | | | | | + +------+--------+ +--------+--------+--------+ | Screw Precept Shank Mod | | N/A: | NUVASIVE | | | [id number] | | 6.5x50mm - [id number]: | | Spine | | | | 0 / / | | Qty: 2 on 03/31/2014 by | | Lumbar | | | | | | Silviano Cabrera MD | | | | | | | + +------+--------+ +--------+--------+--------+ | Screw Locking For 6.25mm Srini | | N/A: | NUVASIVE | | | [id number] | | - [id number]: Qty: 6 | | Spine | | | | 1 / / | | on 03/31/2014 by Rick, | | Lumbar | | | | | | MD Silviano | | | | | | | + +------+--------+ +--------+--------+--------+ | Screw Tulip For 6.25mm Srini - | | N/A: | NUVASIVE | | | [id number] | | [id number]: Qty: 6 on | | Spine | | | | 2 / / | | 03/31/2014 by Silviano Cabrera, | | Lumbar | | | | | | | | | | | | | + +------+--------+ +--------+--------+--------+ | Allograft Freeze Dried | | N/A: | LIFENET | | 11/08/ | [id number] | | Demineralized Cancellous Mix | | Spine | HEALTH | | 2017 | T | | Ic Graft Chamber 15cc - | | Lumbar | | | | /65870 | | [id number]: Qty: | | | | | | 98-303 | | 1 on 03/31/2014 by Rick, | | | | | | 9 / | | MD Silviano | | | | | | | + +------+--------+ +--------+--------+--------+ | Allograft Freeze Dried | | N/A: | LIFENET | | 08/16/ | [id number] | | Demineralized Cancellous Mix | | Spine | HEALTH | | 2016 | T | | Ic Graft Chamber 10cc - | | Lumbar | | | | /98988 | | [id number]: Qty: | | | | | | 22-301 | | 1 on 03/31/2014 by Rick, | | | | | | 3 / | | MD Silviano | | | | | | | + +------+--------+ +--------+--------+--------+ | Allograft Freeze Dried | | N/A: | LIFENET | | 07/13/ | [id number] | | Demineralized Cancellous Mix | | Spine | HEALTH | | 2016 | T | | Ic Graft Chamber 5cc - | | Lumbar | | | | /37801 | | [id number]: Qty: | | | | | | 40-301 | | 1 on 03/31/2014 by Rick, | | | | | | 1 / | | MD Silviano | | | | | | | + +------+--------+ +--------+--------+--------+ | Srini Spherx Dual Ball Ti Dbr | | N/A: | NUVASIVE | | | [id number] | | Ii 42.5mm - | | Spine | | | | 5 / / | | [id number]: Qty: 2 on | | Lumbar | [...] + + + | [facility] | [address] | [place] [address] | [phone] | | LABORATORY | [address]vd[address] | | [...] + + + | [facility] | [address] [facility] | [place] [address] | [phone] | | LABORATORY | Blvd. | | [...] + + + | [facility] | [address] | [place] [address] | [phone] | | LABORATORY | Blvd. | | [...] 6.9 | 6.3 - 8.2 g/dL | [facility] | | | | | LABORATORY [...] | | | | using the MDRD IDME | | | | | traceable equation. | | | + + + + + + + | Specimen | + + | Blood | + + + + + + + | Performing | Address | City/State/Zipcode | Phone Number | | Organization | | | | + + + + + | [facility] | [address] | [place] [address] | [phone] | | LABORATORY | Blvd. | | [...] [place] | [place] - | [id number] | Medica | | | | | [...] + +--------+ +--------+-------+ + | MEDICAID | [place]IND | [id number] | | | [address] | | | N | | | | [place] | | | [place] | | | | [address] | | | COLLECTION TELLER | | | | | + +--------+ [...] | | al/Fam | | 1945 | [phone] | [place] | | | jana | | | [phone] | [phone] | + +--------+ +--------+ + +
--- OUTSIDE RECORDS SUMMARY | ~2018-08-18 | XMS | Encounter Summary ---
Demographics + + + | Address | [address] | | | [place] [address] | + + + | Home Phone | | + + + | Preferred Language | Unknown | + + + | Marital Status | | + + + | Scientology Affiliation | Unknown | + + + | Race | Unknown | + + + | Ethnic Group | Unknown | + + + Author + + + | Author | [facility] | + + + | Organization | [facility] | + + + | Address | Unknown | + + + | Phone | Unavailable | + + + Support + + +---------+ + | Name | Relationship | Address | Phone | + + +---------+ + | Mirza Bee | ECON | Unknown | | + + +---------+ + Care Team Providers + +------+ + | Care Plant Operations Worker Name | Role | Phone | + +------+ + | Caitlin Chino MD | PCP | | + +------+ + Encounter Details +--------+ + + + + | Date | Type | Department | Care Team | Description | +--------+ + + + + | 07/20/ | Telephone | [facility] | Abeba Douglas MD | | | 2019 | | Rheumatology [address] | | | | [address] | [address] [place] | | | | | [place] [address] | [address] | | | | | [phone] | | | +--------+ + + + [...] | 2018 | Visit | | [address] [address] | | | | | | [address] | | | | | | [place] [address] | | | | | | [phone] | | | | | | | | +--------+---------+ + + + as of this encounter Visit Diagnoses Not on filein this encounter"
--- OUTSIDE RECORDS SUMMARY | ~2018-08-18 | XMS | Encounter Summary ---
Demographics + + + | Address | [address] | | | [place] [address] | + + + | Home Phone | | + + + | Preferred Language | Unknown | + + + | Marital Status | | + + + | Quaker Affiliation | Unknown | + + + | Race | Unknown | + + + | Ethnic Group | Unknown | + + + Author + + + | Author | [facility] | + + + | Organization | [facility] | + + + | Address | Unknown | + + + | Phone | Unavailable | + + + Support + + +---------+ + | Name | Relationship | Address | Phone | + + +---------+ + | Mirza Bee | ECON | Unknown | | + + +---------+ + Care Team Providers + +------+ + | Care Health Unit Clerk Name | Role | Phone | [...] | | | | MRI lumbar | [address] | | | | | | spine | avenue | | | | | | without | [place] | | | | | | contrast | [address] | | | | | | | Phone: | | | | | | | [phone] | | | | | | | Fax: | | | | | | | [phone] | | + +--------+ + + + + Encounter Details +--------+ + + + + | Date | Type | Department | Care Team | Description | +--------+ + + + + | 05/20/ | Ancillary | [facility] | See, Medical | Pain | | 2018 | Orders | [facility] MRI | Record [address] | | | | | [address] [facility] | [address] [place] [address] | | | | | [place] [address] | [place] [address] | | | | | [phone] | [phone] | | | | | | | [...] | 2018 | Visit | | [facility] [address] | | | | | | [facility] | | | | | | [place] [address] | | | | | | [phone] | | | | | | | [...] | + + + + + | [facility] | [address] | [place] [address] | | + + + + + in this encounter Visit Diagnoses + + | Diagnosis | + + | Pain | + + | Generalized pain | + +"
--- OUTSIDE RECORDS SUMMARY | ~2018-08-18 | XMS | Clinical Summary ---
Demographics + + + | Address | [address] | | | [place] [address] | + + + | Home Phone | | + + + | Preferred Language | Unknown | + + + | Marital Status | | + + + | Catholic Affiliation | Unknown | + + + | Race | Unknown | + + + | Ethnic Group | Unknown | + + + Author + + + | Author | [facility] [employer] | + + + | Organization | [facility] | + + + | Address | Unknown | + + + | Phone | Unavailable | + + + Support + + +---------+ + | Name | Relationship | Address | Phone | + + +---------+ + | Mirza Bee | ECON | Unknown | | + + +---------+ + Care Team Providers + +------+ + | Care Benefit Director Name | Role | Phone | [...] | 2.CT-guided biopsy by interventional radiology at [facility] of the | | right lung massshows [...] Mace , thoracic surgeon at | | [facility] for consideration of bronchoscopy, right [...] in August 20149. | | Admitted to [facility] on September 27, 2014 for | | right-sided chest pain secondary to acute bronchitis.10. CT chest | | [facility] on September 28, 2014 demonstrated persistent | | 32 mm x 26 mm x 27 mm Right Hilar Mass.Last Assessment & Plan: | | Stephanie returned to the [facility] | | on November 09, 2014 for follow up of her locally recurrent RIGHT | | Lung cancer. Interval history is notable for the fact that Thea | Tim was admitted to [facility] in [place], [place] for | | acute exacerbation of chronic bronchitis. During her | | hospitalization there, a chest CT was performed demonstrating a | | persistent 32 x 26 mm right hilar mass. These images were | | reviewed subsequently at the [facility] on their PACS | | system. [...] | | persistent disease. PET/CT schedule at [facility] on December 21, 2014 | | with follow up at [facility] the following week. | + [...] | 2019 | on Only | | SANITARIAN INSPECTOR | reports for | | | | [...] | 2018 | on Only | | SANITARIAN INSPECTOR | 05/13/2018) | +--------+ + + + [...] | 2018 | Visit | | [address] | | | | | | [facility] | | | | | | [place] [address] | | | | | | [phone] | | | | | | | [...] | N/A: | | | 08/20/ | [id number] | | Dbx 2.5ml - | | Spine | | | 2014 | | | [id number]: | | Cervic | | | | /23858 | | Qty: 1 on 01/19/2013 by | | al | | | | [id number] | | Silviano Cabrera MD | | | | | | 526295 | | | | | | | | 8 / | + +------+--------+ +--------+--------+--------+ | Cage Triad Allograft | | N/A: | | | 08/16/ | [id number] | | [id number] - | | Spine | | | 2018 | 7 | | [id number]: Qty: 1 | | Cervic | | | | /[id number] | | on 01/19/2013 by Rick, | Tim david | | | | 8-185 | | MD Silviano | | | | | | / | + +------+--------+ +--------+--------+--------+ | Cage Triad Allograft 6mm - | | N/A: | | | 06/23/ | [id number] | | [id number]: Qty: 1 | | Spine | | | 2018 | 6 | | on 01/19/2013 by Rick, | | Cervic | | | | /17626 | | MD Silviano | | al | | | | 0-206 | | | | | | | | / | + +------+--------+ +--------+--------+--------+ | Screw Vectra Self Drilling | | N/A: | | | | 04.613 | | Variable Angle 4.0x14mm - | | Spine | | | | .514 | | [id number]: Qty: 2 on | | Cervic | | | | /11597 | | 01/19/2013 by Silviano Cabrera, | | al | | | | 514 / | | MD | | | | | | | + +------+--------+ +--------+--------+--------+ | Screw Vectra Self Drilling | | N/A: | | | | 04.613 | | Variable Angle 3tcl69ht - | | Spine | | | | .516 | | [id number]: Qty: 2 on | | Cervic | | | | /59614 | | 01/19/2013 by Silviano Cabrera, | | al | | | | 516 / | | MD | | | | | | | + +------+--------+ +--------+--------+--------+ | Screw Vectra Self Drilling | | N/A: | | | | 04.613 | | Fixed Angle 4.0x14mm - | | Spine | | | | .714 | | [id number]: Qty: 2 on | | Cervic | | | | /33630 | | 01/19/2013 by Silviano Cabrera, | | al | | | | 714 / | | MD | | | | | | | + +------+--------+ +--------+--------+--------+ | Plate Vectra Cervical 30mm - | | N/A: | | | | 04.613 | | [id number]: Qty: 1 on | | Spine | | | | .130 | | 01/19/2013 by Silviano Cabrera, | | Cervic | | | | /38906 | | MD | | al | | | | 130 / | + +------+--------+ +--------+--------+--------+ | Allograft Putty Freeze Dried | | N/A: | | | 10/20/ | 456206 | | Dbx 2.5ml - | | Spine | | | 2014 | | | [id number]: | | Cervic | | | | /10283 | | Qty: 1 on 04/06/2013 by | | al | | | | 580799 | | Silviano Cabrera MD | | | | | | 159677 | | | | | | | | 3 / | + +------+--------+ +--------+--------+--------+ | Screw Vuepoint Post Cerv | | N/A: | | | | 703597 | | 3.5x12mm - [id number]: | | Spine | | | | 2 | | Qty: 3 on 04/06/2013 by | | Cervic | | | | /03039 | | Silviano Cabrera MD | | al | | | | 12 / | + +------+--------+ +--------+--------+--------+ | Screw Vuepoint Post Cerv | | N/A: | | | | 901487 | | 3.5x14mm - [id number]: | | Spine | | | | 4 | | Qty: 1 on 04/06/2013 by | | Altagraciaic | | | | /39034 | | Silviano Cabrera MD | | al | | | | 14 / | + +------+--------+ +--------+--------+--------+ | Srini Vuepoint 3.5x60mm - | | N/A: | | | | 145611 | | [id number]: Qty: 1 on | | Spine | | | | 0 | | 04/06/2013 by Silviano Cabrera, | | Cervic | | | | /38633 | | MD | | al | | | | 60 / | + +------+--------+ +--------+--------+--------+ | Screw Vuepoint Post Cerv Set | | N/A: | | | | 754754 | | Tulip & Hook - | | Spine | | | | 0 | | [id number]: Qty: 4 on | | Cervic | | | | /91596 | | 04/06/2013 by Silviano Cabrera, | | al | | | | 00 / | | MD | | | | | | | + +------+--------+ +--------+--------+--------+ | Allograft Osteocell 10cc | | | | | 08/25/ | 366684 | | [id number] - | | | | | 2018 | 0 | | [id number]: Qty: 1 | | | | | | /32700 | | on 04/06/2013 | | | | | | 1542 / | + +------+--------+ +--------+--------+--------+ | Allograft Putty Freeze Dried | | N/A: | | | 11/10/ | [id number] | | Demineralized Bone Matrix Dbx | | Spine | | | 2014 | | | 1ml - | | Cervic | | | | /88619 | | [id number]: | | al | | | | [id number] | | Qty: 1 on 04/06/2013 by | | | | | | 238735 | | Silviano Cabrera MD | | | | | | 1 / | + +------+--------+ +--------+--------+--------+ | Graft Sponge Kit Bone Infuse | | | MEDTRONIC | | | 617457 | | Medium 56ml - | | | | | | 0 / | | [id number]: Qty: 1 on | | | | | | /M1112 | | 03/29/2014 by Silviano Cabrera, | | | | | | 05AA6 | | MD | | | | | | | + +------+--------+ +--------+--------+--------+ | Triad Alif Allograft | | | NUVASIVE | | 08/02/ | 648775 | | [id number]: Qty: 1 on | | | | | 2018 | 4 | | 03/29/2014 by Silviano Cabrera, | | | | | | /40038 | | MD | | | | | | 0-065 | | | | | | | | / | + +------+--------+ +--------+--------+--------+ | Screw Brigade 5.5x25mm - | | | NUVASIVE | | | 838904 | | [id number]: Qty: 2 on | | | | | | / | | 03/29/2014 by Silviano Cabrera, | | | | | | | | MD | | | | | | | + +------+--------+ +--------+--------+--------+ | Screw Brigade 5.5x30mm - | | | NUVASIVE | | | 740202 | | [id number]: Qty: 4 on | | | | | | 0 / / | | 03/29/2014 by Silviano Cabrera, | | | | | | | | MD | | | | | | | + +------+--------+ +--------+--------+--------+ | Evelyne Batista Allograft | | | NUVASIVE | | 07/14/ | 415498 | | [id number] - | | | | | 2012 | 2 / / | | [id number]: Qty: 1 on | | | | | | | | 03/29/2014 by Silviano Cabrera, | | | | | | | | MD | | | | | | | + +------+--------+ +--------+--------+--------+ | Svetlana Iraheta 5.5x35mm - | | | NUVASIVE | | | 077532 | | [id number]: Qty: 2 on | | | | | | 5 / / | | 03/29/2014 by Silviano Cabrera, | | | | | | | | MD | | | | | | | + +------+--------+ +--------+--------+--------+ | Allograft Block Extra Large | | N/A: | NUVASIVE | | 09/27/ | [id number] | | Formagraft Large - | | Back | | | 2018 | 5 / | | [id number]: Qty: 1 on | | | | | | /FG-14 | | 03/29/2014 by Silviano Cabrera, | | | | | | 13 | | MD | | | | | | | + +------+--------+ +--------+--------+--------+ | Graft Sponge Kit Bone Infuse | | N/A: | MEDTRONIC | | 08/27/ | [id number] | | Large 8ml - | | Back | | | 2015 | 0 / | | [id number]: Qty: 1 on | | | | | | /M1112 | | 03/29/2014 by Silviano Cabrera, | | | | | | 06AAY | | | | | | | | | + +------+--------+ +--------+--------+--------+ | Allograft Freeze Dried | | N/A: | LIFENET | | 11/13/ | [id number] | | Demineralized Cancellous Mix | | Spine | HEALTH | | 2017 | T | | Ic Graft Chamber 15cc - | | Lumbar | | | | /70124 | | [id number]: Qty: | | | | | | 57-303 | | 1 on 03/31/2014 by Rick, | | | | | | 1 / | | MD Silviano | | | | | | | + +------+--------+ +--------+--------+--------+ | Graft Sponge Kit Bone Infuse | | N/A: | MEDTRONIC | | 04/01/ | [id number] | | Medium 56ml - | | Spine | | | 2014 | 0 | | [id number]: Qty: 1 | | Lumbar | | | | /M1112 | | on 03/31/2014 by Rick, | | | | | | 05AAW | | MD Silviano | | | | | | / | + +------+--------+ +--------+--------+--------+ | Allograft Freeze Dried | | N/A: | LIFENET | | 11/01/ | [id number] | | Demineralized Cancellous Mix | | Spine | HEALTH | | 2016 | T | | Ic Graft Chamber 15cc - | | Lumbar | | | | /65778 | | [id number]: Qty: | | | | | | 37-301 | | 1 on 03/31/2014 by Rick, | | | | | | 1 / | | MD Silviano | | | | | | | + +------+--------+ +--------+--------+--------+ | Screw Precept Shank Mod | | N/A: | NUVASIVE | | | [id number] | | 7.5x50mm - [id number]: | | Spine | | | | 0 / / | | Qty: 4 on 03/31/2014 by | | Lumbar | | | | | | Silviano Cabrera MD | | | | | | | + +------+--------+ +--------+--------+--------+ | Screw Precept Shank Mod | | N/A: | NUVASIVE | | | [id number] | | 6.5x50mm - [id number]: | | Spine | | | | 0 / / | | Qty: 2 on 03/31/2014 by | | Lumbar | | | | | | Silviano Cabrera MD | | | | | | | + +------+--------+ +--------+--------+--------+ | Screw Locking For 6.25mm Srini | | N/A: | NUVASIVE | | | [id number] | | - [id number]: Qty: 6 | | Spine | | | | 1 / / | | on 03/31/2014 by Rick, | | Lumbar | | | | | | MD Silviano | | | | | | | + +------+--------+ +--------+--------+--------+ | Screw Tulip For 6.25mm Srini - | | N/A: | NUVASIVE | | | [id number] | | [id number]: Qty: 6 on | | Spine | | | | 2 / / | | 03/31/2014 by Silviano Cabrera, | | Lumbar | | | | | | | | | | | | | + +------+--------+ +--------+--------+--------+ | Allograft Freeze Dried | | N/A: | LIFENET | | 11/08/ | [id number] | | Demineralized Cancellous Mix | | Spine | HEALTH | | 2017 | T | | Ic Graft Chamber 15cc - | | Lumbar | | | | /12561 | | [id number]: Qty: | | | | | | 98-303 | | 1 on 03/31/2014 by Rick, | | | | | | 9 / | | MD Silviano | | | | | | | + +------+--------+ +--------+--------+--------+ | Allograft Freeze Dried | | N/A: | LIFENET | | 08/16/ | [id number] | | Demineralized Cancellous Mix | | Spine | HEALTH | | 2016 | T | | Ic Graft Chamber 10cc - | | Lumbar | | | | /03945 | | [id number]: Qty: | | | | | | 22-301 | | 1 on 03/31/2014 by Rick, | | | | | | 3 / | | MD Silviano | | | | | | | + +------+--------+ +--------+--------+--------+ | Allograft Freeze Dried | | N/A: | LIFENET | | 07/13/ | [id number] | | Demineralized Cancellous Mix | | Spine | HEALTH | | 2016 | T | | Ic Graft Chamber 5cc - | | Lumbar | | | | /36999 | | [id number]: Qty: | | | | | | 40-301 | | 1 on 03/31/2014 by Rick, | | | | | | 1 / | | MD Silviano | | | | | | | + +------+--------+ +--------+--------+--------+ | Srini Spherx Dual Ball Ti Dbr | | N/A: | NUVASIVE | | | [id number] | | Ii 42.5mm - | | Spine | | | | 5 / / | | [id number]: Qty: 2 on | | Lumbar | | | | | | 03/31/2014 by Sliviano Cabrera, | | | | | | [...] + + + | [facility] | [address] | [place] [address] | [phone] | | LABORATORY | [address]vd[address] | | [...] + + + | [facility] | [address] [facility] | [place] [address] | [phone] | | LABORATORY | Blvd. | | [...] | [address] | [place] [address] | [phone] | | LABORATORY | Blvd. | | [...] | | | | using the MDRD IDGA | | | | | traceable equation. | | | + + + + + + + | Specimen | + + | Blood | + + + + + + + | Performing | Address | City/State/Zipcode | Phone Number | | Organization | | | | + + + + + | [facility] | [address] | [place] [address] | [phone] | | LABORATORY | Blvd. | | [...] [place] | [place] - | [id number] | Medica | | | | | [...] +--------+-------+ + | MEDICAID | [place] | [id number] | | | [address] | | | N | | | | [place] | | | [place] | | | | [address] | | | CASH CONTROLLER | | | | | + +--------+ [...] | | al/Fam | | 1945 | [phone] | [place] | | | jana | | | [birth year] | [phone] | + +--------+ +--------+ + +
--- OUTSIDE RECORDS SUMMARY | ~2018-08-18 | XMS | Encounter Summary ---
Demographics + + + | Address | [address] | | | [place] [address] | + + + | Home Phone | | + + + | Preferred Language | Unknown | + + + | Marital Status | | + + + | Hoahaoism Affiliation | Unknown | + + + | Race | Unknown | + + + | Ethnic Group | Unknown | + + + Author + + + | Author | [facility] [employer] | + + + | Organization | [facility] | + + + | Address | Unknown | + + + | Phone | Unavailable | + + + Support + + +---------+ + | Name | Relationship | Address | Phone | + + +---------+ + | Mirza Bee | ECON | Unknown | | + + +---------+ + Care Team Providers + +------+ + | Care Clinical Interviewer Name | Role | Phone | + [...] | [address] | [place] | | | | | [place], [place] | [address] | | | | | [address] | | | | | | [phone] | | | +--------+ + + + [...] | 2018 | Visit | | [address] | | | | | | [facility] | | | | | | [place] [address] | | | | | | [phone] | | | | | | | | +--------+---------+ + + + as of this encounter Visit Diagnoses Not on filein this encounter"
--- OUTSIDE RECORDS SUMMARY | ~2018-08-18 | XMS | Encounter Summary ---
Demographics + + + | Address | [address] | | | [place] [address] | + + + | Home Phone | | + + + | Preferred Language | Unknown | + + + | Marital Status | | + + + | Pentecostal Affiliation | Unknown | + + + | Race | Unknown | + + + | Ethnic Group | Unknown | + + + Author + + + | Author | [facility] [employer] | + + + | Organization | [facility] | + + + | Address | Unknown | + + + | Phone | Unavailable | + + + Support + + +---------+ + | Name | Relationship | Address | Phone | + + +---------+ + | Mirza Bee | ECON | Unknown | | + + +---------+ + Care Team Providers + +------+ + | Care Ticket Worker Name | Role | Phone | [...] | [address] | [place] | | | | | [place], [place] | [address] | | | | | [address] | | | | | | [phone] | | | +--------+ + + + [...] | 2018 | Visit | | [address] | | | | | | [facility] | | | | | | [place] [address] | | | | | | [phone] | | | | | | | | +--------+---------+ + + + as of this encounter Visit Diagnoses Not on filein this encounter"
--- OUTSIDE RECORDS SUMMARY | ~2018-08-18 | XMS | Encounter Summary ---
Demographics + + + | Address | [address] | | | [place] [address] | + + + | Home Phone | | + + + | Preferred Language | Unknown | + + + | Marital Status | | + + + | Anabaptism Affiliation | Unknown | + + + | Race | Unknown | + + + | Ethnic Group | Unknown | + + + Author + + + | Author | [employer] | + + + | Organization | [facility] | + + + | Address | Unknown | + + + | Phone | Unavailable | + + + Support + + +---------+ + | Name | Relationship | Address | Phone | + + +---------+ + | Mirza Bee | ECON | Unknown | | + + +---------+ + Care Team Providers + +------+ + | Care Lead Pastor Name | Role | Phone | + [...] + + | 07/02/ | Refill | [facility] | Abeba Douglas MD | | | 2019 | | Rheumatology [address] | | | | [address] | [address] [place] | | | | | [place] [address] | [address] | | | | | [phone] | | | +--------+--------+ + + + [...] | 2018 | Visit | | [address] | | | | | | [facility] | | | | | | [place] [address] | | | | | | [phone] | | | | | | | | +--------+---------+ + + + as of this encounter Visit Diagnoses Not on filein this encounter"
--- OUTSIDE RECORDS SUMMARY | ~2018-08-18 | XMS | Encounter Summary ---
Demographics + + + | Address | [address] | | | [place] [address] | + + + | Home Phone | | + + + | Preferred Language | Unknown | + + + | Marital Status | | + + + | Worship Affiliation | Unknown | + + + | Race | Unknown | + + + | Ethnic Group | Unknown | + + + Author + + + | Author | [employer] | + + + | Organization | [facility] [facility] | + + + | Address | Unknown | + + + | Phone | Unavailable | + + + Support + + +---------+ + | Name | Relationship | Address | Phone | + + +---------+ + | Mirza Bee | ECON | Unknown | | + + +---------+ + Care Team Providers + +------+ + | Care Manufacturing Controller Name | Role | Phone | [...] | on Only | [facility] | ELECTRONIC COMPONENT PROCESSOR | 05/13/2018) | | | | [address] | | | | | | [place] | | | | | | [address] | | | | | | [phone] | | | +--------+ + + + [...] | 2018 | Visit | | [address] | | | | | | [facility] | | | | | | [place] [address] | | | | | | [phone] | | | | | | | | +--------+---------+ + + + as of this encounter Visit Diagnoses Not on filein this encounter"
--- OUTSIDE RECORDS SUMMARY | ~2018-08-18 | XMS | Encounter Summary ---
Demographics + + + | Address | [address] | | | [place] [address] | + + + | Home Phone | | + + + | Preferred Language | Unknown | + + + | Marital Status | | + + + | Yazdanism Affiliation | Unknown | + + + | Race | Unknown | + + + | Ethnic Group | Unknown | + + + Author + + + | Author | [facility] | + + + | Organization | [facility] [employer] [facility] | + + + | Address | Unknown | + + + | Phone | Unavailable | + + + Support + + +---------+ + | Name | Relationship | Address | Phone | + + +---------+ + | Mirza Bee | ECON | Unknown | | + + +---------+ + Care Team Providers + +------+ + | Care Collection Development Librarian Name | Role | Phone | + +------+ + | Davis Ivan MD | PCP | Unavailable | + +------+ + Encounter Details +--------+ + + + + | Date | Type | Department | Care Team | Description | +--------+ + + + + | 06/03/ | Telephone | [facility] | [place], | | | 2018 | | Rheumatology [address] | [place] | | | | | [place] | | | | | | [place] [address] | | | | | | [phone] | | | +--------+ + + + [...] | 2018 | Visit | | [address] | | | | | | [place] | | | | | | [place] [address] | | | | | | [phone] | | | | | | | | +--------+---------+ + + + as of this encounter Visit Diagnoses Not on filein this encounter"
--- OUTSIDE RECORDS SUMMARY | ~2018-08-18 | XMS | Encounter Summary ---
Demographics + + + | Address | [address] | | | [place] [address] | + + + | Home Phone | | + + + | Preferred Language | Unknown | + + + | Marital Status | | + + + | Samaritan Affiliation | Unknown | + + + | Race | Unknown | + + + | Ethnic Group | Unknown | + + + Author + + + | Author | [facility] | + + + | Organization | [facility] | + + + | Address | Unknown | + + + | Phone | Unavailable | + + + Support + + +---------+ + | Name | Relationship | Address | Phone | + + +---------+ + | Mirza Bee | ECON | Unknown | | + + +---------+ + Care Team Providers + +------+ + | Care Manager Business Information Name | Role | Phone | + [...] | | | | MRI lumbar | [address] | | | | | | spine | avenue | | | | | | without | [place] | | | | | | contrast | [address] | | | | | | | Phone: | | | | | | | [phone] | | | | | | | Fax: | | | | | | | [phone] | | + +--------+ + + + + Encounter Details +--------+ + + + + | Date | Type | Department | Care Team | Description | +--------+ + + + + | 05/20/ | Hospital | [facility] PHYSICIAN | See, Medical | Pain | | 2017 | Encounter | [facility] | Record [address] | | | | | RADIOLOGY [address] | [facility] | | | | | [facility] | [place] [address] | | | | | [place] [address] | [phone] | | | | | [phone] | | | +--------+ + + + [...] CENTER | | | | | | [place] [address] | | | | | | [phone] | | | | | | | [...] | [address] | [place] [address] | | + + + + + in this encounter Visit Diagnoses + + | Diagnosis | + + | Pain | + + | Generalized pain | + +"
--- OUTSIDE RECORDS SUMMARY | ~2018-08-18 | XMS | Encounter Summary ---
Demographics + + + | Address | [address] | | | [place] [address] | + + + | Home Phone | | + + + | Preferred Language | Unknown | + + + | Marital Status | | + + + | Restorationism Affiliation | Unknown | + + + | Race | Unknown | + + + | Ethnic Group | Unknown | + + + Author + + + | Author | [facility] | + + + | Organization | [facility] | + + + | Address | Unknown | + + + | Phone | Unavailable | + + + Support + + +---------+ + | Name | Relationship | Address | Phone | + + +---------+ + | Mirza Bee | ECON | Unknown | | + + +---------+ + Care Team Providers + +------+ + | Care Rope Walker Name | Role | Phone | + [...] | | | | | [place] [address] | | | | | | [phone] | | | +--------+ + + + [...] | 2018 | Visit | | [address] | | | | | | [place] | | | | | | [place] [address] | | | | | | [phone] | | | | | | | | +--------+---------+ + + + as of this encounter Visit Diagnoses Not on filein this encounter"
--- OUTSIDE RECORDS SUMMARY | ~2018-08-18 | XMS | Encounter Summary ---
Demographics + + + | Address | [address] | | | [place] [address] | + + + | Home Phone | | + + + | Preferred Language | Unknown | + + + | Marital Status | | + + + | Mormon Affiliation | Unknown | + + + | Race | Unknown | + + + | Ethnic Group | Unknown | + + + Author + + + | Author | [employer] | + + + | Organization | [facility] | + + + | Address | Unknown | + + + | Phone | Unavailable | + + + Support + + +---------+ + | Name | Relationship | Address | Phone | + + +---------+ + | Mirza Bee | ECON | Unknown | | + + +---------+ + Care Team Providers + +------+ + | Care Rope Laying Machine Operator Name | Role | Phone | + +------+ + | Caitlin Chino MD | PCP | | + +------+ + Encounter Details +--------+ + + + + | Date | Type | Department | Care Team | Description | +--------+ + + + + | 05/20/ | Procedure | [facility] | | | | 2017 | Pass | [facility] | | | | | | [facility] [address] | | | | | | [address] | | | | | | [place] [address] | | | | | | [phone] | | | +--------+ + + + [...] | 2018 | Visit | | [facility] [address] | | | | | [address] | | | | | | [place] [address] | | | | | | [phone] | | | | | | | | +--------+---------+ + + + as of this encounter Visit Diagnoses Not on filein this encounter"
--- OUTSIDE RECORDS SUMMARY | ~2018-08-18 | XMS | Encounter Summary ---
Demographics + + + | Address | [address] | | | [place] [address] | + + + | Home Phone | | + + + | Preferred Language | Unknown | + + + | Marital Status | | + + + | Zoroastrian Affiliation | Unknown | + + + | Race | Unknown | + + + | Ethnic Group | Unknown | + + + Author + + + | Author | TyraStyleChat by [employer] | + + + | Organization | [facility] | + + + | Address | Unknown | + + + | Phone | Unavailable | + + + Support + + +---------+ + | Name | Relationship | Address | Phone | + + +---------+ + | Mirza Bee | ECON | Unknown | | + + +---------+ + Care Team Providers + +------+ + | 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
--- OUTSIDE RECORDS SUMMARY | ~2018-08-18 | XMS | Encounter Summary ---
Demographics + + + | Address | [address] | | | [place] [address] | + + + | Home Phone | | + + + | Preferred Language | Unknown | + + + | Marital Status | | + + + | Gnosticism Affiliation | Unknown | + + + | Race | Unknown | + + + | Ethnic Group | Unknown | + + + Author + + + | Author | TyraParking Panda In[employer] | + + + | Organization | [facility] | + + + | Address | Unknown | + + + | Phone | Unavailable | + + + Support + + +---------+ + | Name | Relationship | Address | Phone | + + +---------+ + | Mirza Bee | ECON | Unknown | | + + +---------+ + Care Team Providers + +------+ + | Care Coater Carbon Paper Name | Role | Phone | [...] | [address] | [place] | | | | | [place], [place] | [address] | | | | | [address] | | | | | | [phone] | | | +--------+ + + + [...] | 2018 | Visit | | [address] | | | | | | [facility] | | | | | | [place] [address] | | | | | | [phone] | | | | | | | | +--------+---------+ + + + as of this encounter Visit Diagnoses Not on filein this encounter"
--- OUTSIDE RECORDS SUMMARY | ~2018-08-18 | XMS | Encounter Summary ---
Demographics + + + | Address | [address] | | | [place] [address] | + + + | Home Phone [...] [place] | | | | | [address] | | + + + + + Care Team Providers + +------+ + | Care Lawn Care Professional Name | Role | Phone | [...] | s, | [address] | [place] [address] | | | | | unspecified | [place], | Phone: | | | | | | [place] | [phone] | | | | | | [address] | Fax: | | | | | | Phone: | [phone] | | | | | | [phone] | | | | | | | Fax: | | | | | | | [phone] | | +--------+--------+ + + + + Encounter Details +--------+---------+ + + + | Date | Type | Department | Care Team | Description | +--------+---------+ + + + | 07/19/ | Office | [facility] [place] Giuliano Paidlla, | Trigger finger of | | 2019 | Visit | ORTHOPEDIC SURGERY | MD [address] | left thumb (Primary | | | | [address] | [place] | Dx); Trigger middle | | | | [place] | [address] | finger of left hand; | | | | [address] | | Trigger ring finger | | | | [phone] | | of left hand | +--------+---------+ [...] [place] | | | | | | [address] | | | | | | | [...]
--- OUTSIDE RECORDS SUMMARY | ~2018-08-18 | XMS | Encounter Summary ---
Demographics + + + | Address | [address] | | | [place] [address] | + + + | Home Phone | | + + + | Preferred Language | Unknown | + + + | Marital Status | | + + + | Shinto Affiliation | Unknown | + + + | Race | Unknown | + + + | Ethnic Group | Unknown | + + + Author + + + | Author | TyraBee-Line Express localbacon | + + + | Organization | [facility] | + + + | Address | Unknown | + + + | Phone | Unavailable | + + + Support + + +---------+ + | Name | Relationship | Address | Phone | + + +---------+ + | Mirza Bee | ECON | Unknown | | + + +---------+ + Care Team Providers + +------+ + | Care Gourmet Coffee Attendant Name | Role | Phone | [...] + + | 07/29/ | Documentati | [facility] | Jacqueline Govea, | Other ([facility] | | 2019 | on Only | Rheumatology [address] | [facility] | reports for | | | | [address] | | 07/29/18) | | | | [place] [address] | | | | | | [phone] | | | +--------+ + + + [...] | | | | | [place] [address] | | | | | | [phone] | | | | | | | | +--------+---------+ + + + as of this encounter Visit Diagnoses Not on filein this encounter"
--- OUTSIDE RECORDS SUMMARY | ~2018-08-18 | XMS | Encounter Summary ---
Demographics + + + | Address | [address] | | | [place] [address] | + + + | Home Phone | | + + + | Preferred Language | Unknown | + + + | Marital Status | | + + + | Restoration Affiliation | Unknown | + + + | Race | Unknown | + + + | Ethnic Group | Unknown | + + + Author + + + | Author | TyraSolePower Zenph | + + + | Organization | [facility] [employer] [facility] | + + + | Address | Unknown | + + + | Phone | Unavailable | + + + Support + + +---------+ + | Name | Relationship | Address | Phone | + + +---------+ + | Mirza Bee | ECON | Unknown | | + + +---------+ + Care Team Providers + +------+ + | Care Bowl Sander Name | Role | Phone | + [...] + + | 07/02/ | Refill | [facility] | Abeba Douglas MD | | | 2019 | | Rheumatology [address] | [address] | | | | [address] | Place [place] | | | | | [place] [address] | [address] | | | | | [phone] | | | +--------+--------+ + + + [...] | 2018 | Visit | | [address] | | | | | | [facility] | | | | | | [place] [address] | | | | | | [phone] | | | | | | | | +--------+---------+ + + + as of this encounter Visit Diagnoses Not on filein this encounter"
--- OUTSIDE RECORDS SUMMARY | ~2018-08-18 | XMS | Clinical Summary ---
Demographics + + + | Address | [address] | | | [place] [address] | + + + | Home Phone | | + + + | Preferred Language | Unknown | + + + | Marital Status | | + + + | Advent Affiliation | Unknown | + + + | Race | Unknown | + + + | Ethnic Group | Unknown | + + + Author + + + | Author | TyraVerengo Solar [employer]SC | + + + | Organization | [facility] | + + + | Address | Unknown | + + + | Phone | Unavailable | + + + Support + + +---------+ + | Name | Relationship | Address | Phone | + + +---------+ + | Mirza Bee | ECON | Unknown | | + + +---------+ + Care Team Providers + +------+ + | Care Sales Strategy Manager Name | Role | Phone | [...] | 2.CT-guided biopsy by interventional radiology at [facility] of the | | right lung massshows [...] Mace , thoracic surgeon at | | [facility] for consideration of bronchoscopy, right | [...] in August 201[address]. | | Admitted to [facility] on September 27, 2014 for | | right-sided chest pain secondary to acute bronchitis.10. CT chest | | [facility] on September 28, 2014 demonstrated persistent | | 32 mm x 26 mm x 27 mm Right Hilar Mass.Last Assessment & Plan: | | Stephanie returned to the [facility] | | on November 09, 2014 for follow up of her locally recurrent RIGHT | | Lung cancer. Interval history is notable for the fact that Thea | Tim was admitted to [facility] in [place], [place] for | | acute exacerbation of chronic bronchitis. During her | | hospitalization there, a chest CT was performed demonstrating a | | persistent 32 x 26 mm right hilar mass. These images were | | reviewed subsequently at the [facility] on their PACS | | [...] | | persistent disease. PET/CT schedule at [facility] on December 21, 2014 | | with follow up at [facility] the following week. | + [...] | 2019 | on Only | | CREDIT REVIEW OFFICER | reports for | | | | [...] | 2018 | on Only | | CREDIT REVIEW OFFICER | 05/13/2018) | +--------+ + + + [...] | 2018 | Visit | | [address] | | | | | | [facility] | | | | | | [place] [address] | | | | | | [phone] | | | | | | | [...] | N/A: | | | 08/20/ | [id number] | | Dbx 2.5ml - | | Spine | | | 2014 | | | [id number]: | | Cervic | | | | /[id number] | | Qty: 1 on 01/19/2013 by | | al | | | | 164275 | | Silviano Cabrera MD | | | | | | [id number] | | | | | | | | 8 / | + +------+--------+ +--------+--------+--------+ | Cage Triad Allograft | | N/A: | | | 08/16/ | [id number] | | [id number] | | Spine | | | 2018 | 7 | | [id number]: Qty: 1 | | Cervic | | | | /34483 | | on 01/19/2013 by Rick, | Tim david | | | | 8-185 | | MD Silviano | | | | | | / | + +------+--------+ +--------+--------+--------+ | Cage Triad Allograft 6mm - | | N/A: | | | 06/23/ | [id number] | | [id number]: Qty: 1 | | Spine | | | 2018 | 6 | | on 01/19/2013 by Rick, | | Cervic | | | | /65493 | | MD Silviano | | al | | | | 0-206 | | | | | | | | / | + +------+--------+ +--------+--------+--------+ | Screw Vectra Self Drilling | | N/A: | | | | 04.613 | | Variable Angle 4.0x14mm - | | Spine | | | | .514 | | [id number]: Qty: 2 on | | Cervic | | | | /38825 | | 01/19/2013 by Silviano Cabrera, | | al | | | | 514 / | | MD | | | | | | | + +------+--------+ +--------+--------+--------+ | Screw Vectra Self Drilling | | N/A: | | | | 04.613 | | Variable Angle 1kiu93mh - | | Spine | | | | .516 | | [id number]: Qty: 2 on | | Cervic | | | | /32786 | | 01/19/2013 by Silviano Cabrera, | | al | | | | 516 / | | MD | | | | | | | + +------+--------+ +--------+--------+--------+ | Screw Vectra Self Drilling | | N/A: | | | | 04.613 | | Fixed Angle 4.0x14mm - | | Spine | | | | .714 | | [id number]: Qty: 2 on | | Cervic | | | | /40879 | | 01/19/2013 by Silviano Cabrera, | | al | | | | 714 / | | MD | | | | | | | + +------+--------+ +--------+--------+--------+ | Plate Vectra Cervical 30mm - | | N/A: | | | | 04.613 | | [id number]: Qty: 1 on | | Spine | | | | .130 | | 01/19/2013 by Silviano Cabrera, | | Cervic | | | | /37258 | | MD | | al | | | | 130 / | + +------+--------+ +--------+--------+--------+ | Allograft Putty Freeze Dried | | N/A: | | | 10/20/ | 729666 | | Dbx 2.5ml - | | Spine | | | 2014 | | | [id number]: | | Cervic | | | | /01879 | | Qty: 1 on 04/06/2013 by | | al | | | | 786296 | | Silviano Cabrera MD | | | | | | 333383 | | | | | | | | 3 / | + +------+--------+ +--------+--------+--------+ | Screw Vuepoint Post Cerv | | N/A: | | | | 323998 | | 3.5x12mm - [id number]: | | Spine | | | | 2 | | Qty: 3 on 04/06/2013 by | | Cervic | | | | /50166 | | Silviano Cabrera MD | | al | | | | 12 / | + +------+--------+ +--------+--------+--------+ | Screw Vuepoint Post Cerv | | N/A: | | | | 680638 | | 3.5x14mm - [id number]: | | Spine | | | | 4 | | Qty: 1 on 04/06/2013 by | | Altagraciaic | | | | /50751 | | Silviano Cabrera MD | | al | | | | 14 / | + +------+--------+ +--------+--------+--------+ | Srini Vuepoint 3.5x60mm - | | N/A: | | | | 788528 | | [id number]: Qty: 1 on | | Spine | | | | 0 | | 04/06/2013 by Silviano Cabrera, | | Cervic | | | | /61196 | | MD | | al | | | | 60 / | + +------+--------+ +--------+--------+--------+ | Screw Vuepoint Post Cerv Set | | N/A: | | | | 436485 | | Tulip & Hook - | | Spine | | | | 0 | | [id number]: Qty: 4 on | | Cervic | | | | /72335 | | 04/06/2013 by Silviano Cabrera, | | al | | | | 00 / | | MD | | | | | | | + +------+--------+ +--------+--------+--------+ | Allograft Osteocell 10cc | | | | | 08/25/ | 045602 | | [id number] - | | | | | 2018 | 0 | | [id number]: Qty: 1 | | | | | | /99369 | | on 04/06/2013 | | | | | | 1542 / | + +------+--------+ +--------+--------+--------+ | Allograft Putty Freeze Dried | | N/A: | | | 11/10/ | [id number] | | Demineralized Bone Matrix Dbx | | Spine | | | 2014 | | | 1ml - | | Cervic | | | | /01193 | | [id number]: | | al | | | | [id number] | | Qty: 1 on 04/06/2013 by | | | | | | 053537 | | Silviano Cabrera MD | | | | | | 1 / | + +------+--------+ +--------+--------+--------+ | Graft Sponge Kit Bone Infuse | | | MEDTRONIC | | | 168657 | | Medium 56ml - | | | | | | 0 / | | [id number]: Qty: 1 on | | | | | | /M1112 | | 03/29/2014 by Silviano Cabrera, | | | | | | 05AA6 | | MD | | | | | | | + +------+--------+ +--------+--------+--------+ | Triad Alif Allograft | | | NUVASIVE | | 08/02/ | 498856 | | [id number]: Qty: 1 on | | | | | 2018 | 4 | | 03/29/2014 by Silviano Cabrera, | | | | | | /08724 | | MD | | | | | | 0-065 | | | | | | | | / | + +------+--------+ +--------+--------+--------+ | Screw Brigade 5.5x25mm - | | | NUVASIVE | | | 877733 | | [id number]: Qty: 2 on | | | | | | / | | 03/29/2014 by Silviano Cabrera, | | | | | | | | MD | | | | | | | + +------+--------+ +--------+--------+--------+ | Screw Brigade 5.5x30mm - | | | NUVASIVE | | | [id number] | | [id number]: Qty: 4 on | | | | | | 0 / / | | 03/29/2014 by Silviano Cabrera, | | | | | | | | MD | | | | | | | + +------+--------+ +--------+--------+--------+ | Evelyne Batista Allograft | | | NUVASIVE | | 07/14/ | 898217 | | [id number] - | | | | | 2012 | 2 / / | | [id number]: Qty: 1 on | | | | | | | | 03/29/2014 by Silviano Cabrera, | | | | | | | | MD | | | | | | | + +------+--------+ +--------+--------+--------+ | Svetlana Iraheta 5.5x35mm - | | | NUVASIVE | | | [id number] | | [id number]: Qty: 2 on | | | | | | 5 / / | | 03/29/2014 by Silviano Cabrera, | | | | | | | | MD | | | | | | | + +------+--------+ +--------+--------+--------+ | Allograft Block Extra Large | | N/A: | NUVASIVE | | 09/27/ | [id number] | | Formagraft Large - | | Back | | | 2018 | 5 / | | [id number]: Qty: 1 on | | | | | | /FG-14 | | 03/29/2014 by Silviano Cabrera, | | | | | | 13 | | MD | | | | | | | + +------+--------+ +--------+--------+--------+ | Graft Sponge Kit Bone Infuse | | N/A: | MEDTRONIC | | 08/27/ | [id number] | | Large 8ml - | | Back | | | 2015 | 0 / | | [id number]: Qty: 1 on | | | | | | /M1112 | | 03/29/2014 by Silviano Cabrera, | | | | | | 06AAY | | | | | | | | | + +------+--------+ +--------+--------+--------+ | Allograft Freeze Dried | | N/A: | LIFENET | | 11/13/ | [id number] | | Demineralized Cancellous Mix | | Spine | HEALTH | | 2017 | T | | Ic Graft Chamber 15cc - | | Lumbar | | | | /31374 | | [id number]: Qty: | | | | | | 57-303 | | 1 on 03/31/2014 by Rick, | | | | | | 1 / | | MD Silviano | | | | | | | + +------+--------+ +--------+--------+--------+ | Graft Sponge Kit Bone Infuse | | N/A: | MEDTRONIC | | 04/01/ | [id number] | | Medium 56ml - | | Spine | | | 2014 | 0 | | [id number]: Qty: 1 | | Lumbar | | | | /[id number] | | on 03/31/2014 by Rick, | | | | | | 05AAW | | MD Silviano | | | | | | / | + +------+--------+ +--------+--------+--------+ | Allograft Freeze Dried | | N/A: | LIFENET | | 11/01/ | [id number] | | Demineralized Cancellous Mix | | Spine | HEALTH | | 2016 | T | | Ic Graft Chamber 15cc - | | Lumbar | | | | /41112 | | [id number]: Qty: | | | | | | 37-301 | | 1 on 03/31/2014 by Rick, | | | | | | 1 / | | MD Silviano | | | | | | | + +------+--------+ +--------+--------+--------+ | Screw Precept Shank Mod | | N/A: | NUVASIVE | | | [id number] | | 7.5x50mm - [id number]: | | Spine | | | | 0 / / | | Qty: 4 on 03/31/2014 by | | Lumbar | | | | | | Silviano Cabrera MD | | | | | | | + +------+--------+ +--------+--------+--------+ | Screw Precept Shank Mod | | N/A: | NUVASIVE | | | [id number] | | 6.5x50mm - [id number]: | | Spine | | | | 0 / / | | Qty: 2 on 03/31/2014 by | | Lumbar | | | | | | Silviano Cabrera MD | | | | | | | + +------+--------+ +--------+--------+--------+ | Screw Locking For 6.25mm Srini | | N/A: | NUVASIVE | | | [id number] | | - [id number]: Qty: 6 | | Spine | | | | 1 / / | | on 03/31/2014 by Rick, | | Lumbar | | | | | | MD Silviano | | | | | | | + +------+--------+ +--------+--------+--------+ | Screw Tulip For 6.25mm Srini - | | N/A: | NUVASIVE | | | [id number] | | [id number]: Qty: 6 on | | Spine | | | | 2 / / | | 03/31/2014 by Silviano Cabrera, | | Lumbar | | | | | | | | | | | | | + +------+--------+ +--------+--------+--------+ | Allograft Freeze Dried | | N/A: | LIFENET | | 11/08/ | [id number] | | Demineralized Cancellous Mix | | Spine | HEALTH | | 2017 | T | | Ic Graft Chamber 15cc - | | Lumbar | | | | /62091 | | [id number]: Qty: | | | | | | 98-303 | | 1 on 03/31/2014 by Rick, | | | | | | 9 / | | MD Silviano | | | | | | | + +------+--------+ +--------+--------+--------+ | Allograft Freeze Dried | | N/A: | LIFENET | | 08/16/ | [id number] | | Demineralized Cancellous Mix | | Spine | HEALTH | | 2016 | T | | Ic Graft Chamber 10cc - | | Lumbar | | | | /29384 | | [id number]: Qty: | | | | | | 22-301 | | 1 on 03/31/2014 by Rick, | | | | | | 3 / | | MD Silviano | | | | | | | + +------+--------+ +--------+--------+--------+ | Allograft Freeze Dried | | N/A: | LIFENET | | 07/13/ | [id number] | | Demineralized Cancellous Mix | | Spine | HEALTH | | 2016 | T | | Ic Graft Chamber 5cc - | | Lumbar | | | | /88825 | | [id number]: Qty: | | | | | | 40-301 | | 1 on 03/31/2014 by Rick, | | | | | | 1 / | | MD Silviano | | | | | | | + +------+--------+ +--------+--------+--------+ | Srini Spherx Dual Ball Ti Dbr | | N/A: | NUVASIVE | | | [id number] | | Ii 42.5mm - | | Spine | | | | 5 / / | | [id number]: Qty: 2 on | | Lumbar | [...] + + + | [facility] | [address] | [place] [address] | [phone] | | LABORATORY | [address] | | [...] + + + | [facility] | [address] [facility] | [place] [address] | [phone] | | LABORATORY | Blvd. | | [...] | [address] | [place] [address] | [phone] | | LABORATORY | Blvd. | | [...] 6.9 | 6.3 - 8.2 g/dL | [facility] | | | | | LABORATORY | [...] | | | | using the MDRD IDDE | | | | | traceable equation. | | | + + + + + + + | Specimen | + + | Blood | + + + + + + + | Performing | Address | City/State/Zipcode | Phone Number | | Organization | | | | + + + + + | [facility] | [address] | [place] [address] | [phone] | | LABORATORY | Blvd. | | [...] [place] | [place] - | [id number] | Medica | | | | | [...] +--------+-------+ + | MEDICAID | [place]OVIND | [id number] | | | [address] | | | N | | | | [place] | | | [place] | | | | [address] | | | [employer] | | | | | + +--------+ [...] | | al/Fam | | 1945 | [phone] | [place] | | | jana | | | [phone] | [phone] | + +--------+ +--------+ + +
--- OUTSIDE RECORDS SUMMARY | ~2018-08-18 | XMS | Clinical Summary ---
Demographics + + + | Address | [address] | | | [place] [address] | + + + | Home Phone [...] [place] | | | | | [address] | | + + + + + Care Team Providers + +------+ + | Care Log Operations Coordinator Name | Role | Phone | [...] biopsy by | | interventional radiology at [facility] of the right lung massshows | [...] in August [address]. Admitted to | | [facility] on September 27, 2014 for right-sided chest | | pain secondary to acute bronchitis.10. CT chest [facility] on September 28, 2014 demonstrated [...] that Thea was | | admitted to [facility] in [place], [place] for acute | | exacerbation of chronic bronchitis. During her hospitalization | | there, a chest CT was performed demonstrating a persistent 32 x | | 26 mm right hilar mass. These images were reviewed subsequently | | at the [facility] on their PACS system. Radiographic | [...] persistent disease. PET/CT schedule | | at [facility] on December 21, 2014 with follow up at [facility] | | the following week. [...] | + + + | Rheumatoid arthritis(714.0) ([facility]) | 03/30/2013 | + + + + [...] 2019 | Visit | | MD Solo [facility] | | | | | | [place] | | | | | | [address] | | | | | | | [...] Lot | + +------+--------+ +--------+--------+--------+ | [facility] Mri [employer] 8fr - | | | BARD ACCESS | | 03/20/ | [id number] | | [id number]: Qty: 1 on | | | SYSTEMS - | | 2016 | 0 / | | 07/28/2014 by , | | | ELLEN | | | /[id number] | | Chalino Gu MD, [facility] | | | | | | 003 | + +------+--------+ +--------+--------+--------+ | Mini TightropeImplanted: Qty: | | Right: | ARTH[employer]X | | 11/18/ | [id number] | | 1 on 03/20/2015 by Randy, | | Hand | [employer] | | 2020 | 9DS / | | Giuliano Briones MD | | | INC. | | | /[id number] | | | | | | | [...] | [employer] | [employer] | [id number] | Medica | | | | | HEALTH | | re | | | | | MDCR | | | | | + +--------+ +--------+ +---------+ | [employer] | [employer] | [id number] | Medica | [phone] | | MEDICAID HMO | HEALTH [...] YOLANDA | joann/Anant | | 1945 | [phone] | [place] | | | jana | | | [phone] | [phone] | + +--------+ +--------+ + +
--- OUTSIDE RECORDS SUMMARY | ~2018-08-18 | XMS | Clinical Summary ---
Demographics + + + | Address | [address] | | | [place] [address] | + + + | Home Phone | | + + + | Preferred Language | Unknown | + + + | Marital Status | | + + + | Christianity Affiliation | Unknown | + + + | Race | Unknown | + + + | Ethnic Group | Unknown | + + + Author + + + | Author | [employer] | + + + | Organization | [facility] [employer] [facility] | + + + | Address | Unknown | + + + | Phone | Unavailable | + + + Support + + +---------+ + | Name | Relationship | Address | Phone | + + +---------+ + | Mirza Bee | ECON | Unknown | | + + +---------+ + Care Team Providers + +------+ + | Care School Psychologist Name | Role | Phone | + [...] | 2.CT-guided biopsy by interventional radiology at [facility] of the | | right lung massshows [...] Mace , thoracic surgeon at | | [facility] for consideration of bronchoscopy, right [...] acute bronchitis.10. CT chest | | [facility] on September 28, 2014 demonstrated persistent | | 32 mm x 26 mm x 27 mm Right Hilar Mass.Last Assessment & Plan: | | Stephanie returned to the [facility] | | on November 09, 2014 for follow up of her locally recurrent RIGHT | | Lung cancer. Interval history is notable for the fact that Thea | Tim was admitted to [facility] in [place], [place] for | | acute exacerbation of chronic bronchitis. During her | | hospitalization there, a chest CT was performed demonstrating a | | persistent 32 x 26 mm right hilar mass. These images were | | reviewed subsequently at the [facility] on their PACS | | system. [...] | | persistent disease. PET/CT schedule at [facility] on December 21, 2014 | | with follow up at [facility] the following week. | [...] | 2019 | on Only | | MASTER TAX ADVISOR | reports for | | | | [...] | 2018 | on Only | | MASTER TAX ADVISOR | 05/13/2018) | +--------+ + + + [...] | 2018 | Visit | | [address] | | | | | | [facility] | | | | | | [place] [address] | | | | | | [phone] | | | | | | | [...] | N/A: | | | 08/20/ | [id number] | | Dbx 2.5ml - | | Spine | | | 2014 | | | [id number]: | | Cervic | | | | /[id number] | | Qty: 1 on 01/19/2013 by | | al | | | | [id number] | | Silviano Cabrera MD | | | | | | [id number] | | | | | | | | 8 / | + +------+--------+ +--------+--------+--------+ | Cage Triad Allograft | | N/A: | | | 08/16/ | [id number] | | [id number] | | Spine | | | 2018 | 7 | | [id number]: Qty: 1 | | Cervic | | | | /[id number] | | on 01/19/2013 by Rick, | Tim david | | | | 8-185 | | MD Silviano | | | | | | / | + +------+--------+ +--------+--------+--------+ | Cage Triad Allograft 6mm - | | N/A: | | | 06/23/ | [id number] | | [id number]: Qty: 1 | | Spine | | | 2018 | 6 | | on 01/19/2013 by Rick, | | Cervic | | | | /32001 | | MD Silviano | | al | | | | 0-206 | | | | | | | | / | + +------+--------+ +--------+--------+--------+ | Screw Vectra Self Drilling | | N/A: | | | | 04.613 | | Variable Angle 4.0x14mm - | | Spine | | | | .514 | | [id number]: Qty: 2 on | | Cervic | | | | /20486 | | 01/19/2013 by Silviano Cabrera, | | al | | | | 514 / | | MD | | | | | | | + +------+--------+ +--------+--------+--------+ | Screw Vectra Self Drilling | | N/A: | | | | 04.613 | | Variable Angle 3rsr00fg - | | Spine | | | | .516 | | [id number]: Qty: 2 on | | Cervic | | | | /66547 | | 01/19/2013 by Silviano Cabrera, | | al | | | | 516 / | | MD | | | | | | | + +------+--------+ +--------+--------+--------+ | Screw Vectra Self Drilling | | N/A: | | | | 04.613 | | Fixed Angle 4.0x14mm - | | Spine | | | | .714 | | [id number]: Qty: 2 on | | Cervic | | | | /19681 | | 01/19/2013 by Silviano Cabrera, | | al | | | | 714 / | | MD | | | | | | | + +------+--------+ +--------+--------+--------+ | Plate Vectra Cervical 30mm - | | N/A: | | | | 04.613 | | [id number]: Qty: 1 on | | Spine | | | | .130 | | 01/19/2013 by Silviano Cabrera, | | Cervic | | | | /49873 | | MD | | al | | | | 130 / | + +------+--------+ +--------+--------+--------+ | Allograft Putty Freeze Dried | | N/A: | | | 10/20/ | [id number] | | Dbx 2.5ml - | | Spine | | | 2014 | | | [id number]: | | Cervic | | | | /39021 | | Qty: 1 on 04/06/2013 by | | al | | | | 602259 | | Silviano Cabrera MD | | | | | | 797208 | | | | | | | | 3 / | + +------+--------+ +--------+--------+--------+ | Screw Vuepoint Post Cerv | | N/A: | | | | 021960 | | 3.5x12mm - [id number]: | | Spine | | | | 2 | | Qty: 3 on 04/06/2013 by | | Cervic | | | | /60583 | | Silviano Cabrera MD | | al | | | | 12 / | + +------+--------+ +--------+--------+--------+ | Screw Vuepoint Post Cerv | | N/A: | | | | 400038 | | 3.5x14mm - [id number]: | | Spine | | | | 4 | | Qty: 1 on 04/06/2013 by | | Altagraciaic | | | | /67126 | | Silviano Cabrera MD | | al | | | | 14 / | + +------+--------+ +--------+--------+--------+ | Srini Vuepoint 3.5x60mm - | | N/A: | | | | 123474 | | [id number]: Qty: 1 on | | Spine | | | | 0 | | 04/06/2013 by Silviano Cabrera, | | Cervic | | | | /06116 | | MD | | al | | | | 60 / | + +------+--------+ +--------+--------+--------+ | Screw Vuepoint Post Cerv Set | | N/A: | | | | 455947 | | Tulip & Hook - | | Spine | | | | 0 | | [id number]: Qty: 4 on | | Cervic | | | | /[id number] | | 04/06/2013 by Silviano Cabrera, | | al | | | | 00 / | | MD | | | | | | | + +------+--------+ +--------+--------+--------+ | Allograft Osteocell 10cc | | | | | 08/25/ | [id number] | | [id number] - | | | | | 2018 | 0 | | [id number]: Qty: 1 | | | | | | /25224 | | on 04/06/2013 | | | | | | 1542 / | + +------+--------+ +--------+--------+--------+ | Allograft Putty Freeze Dried | | N/A: | | | 11/10/ | [id number] | | Demineralized Bone Matrix Dbx | | Spine | | | 2014 | | | 1ml - | | Cervic | | | | /47584 | | [id number]: | | al | | | | [id number] | | Qty: 1 on 04/06/2013 by | | | | | | [id number] | | Silviano Cabrera MD | | | | | | 1 / | + +------+--------+ +--------+--------+--------+ | Graft Sponge Kit Bone Infuse | | | MEDTRONIC | | | [id number] | | Medium 56ml - | | | | | | 0 / | | [id number]: Qty: 1 on | | | | | | /[id number] | | 03/29/2014 by Silviano Cabrera, | | | | | | 05AA6 | | MD | | | | | | | + +------+--------+ +--------+--------+--------+ | Triad Alif Allograft | | | NUVASIVE | | 08/02/ | 536187 | | [id number]: Qty: 1 on | | | | | 2018 | 4 | | 03/29/2014 by Silviano Cabrera, | | | | | | /14665 | | MD | | | | | | 0-065 | | | | | | | | / | + +------+--------+ +--------+--------+--------+ | Screw Brigade 5.5x25mm - | | | NUVASIVE | | | 360699 | | [id number]: Qty: 2 on | | | | | | / | | 03/29/2014 by Silviano Cabrera, | | | | | | | | MD | | | | | | | + +------+--------+ +--------+--------+--------+ | Screw Brigade 5.5x30mm - | | | NUVASIVE | | | [id number] | | [id number]: Qty: 4 on | | | | | | 0 / / | | 03/29/2014 by Silviano Cabrera, | | | | | | | | MD | | | | | | | + +------+--------+ +--------+--------+--------+ | Evelyne Batista Allograft | | | NUVASIVE | | 07/14/ | [id number] | | [id number] - | | | | | 2012 | 2 / / | | [id number]: Qty: 1 on | | | | | | | | 03/29/2014 by Silviano Cabrera, | | | | | | | | MD | | | | | | | + +------+--------+ +--------+--------+--------+ | Svetlana Iraheta 5.5x35mm - | | | NUVASIVE | | | 271240 | | [id number]: Qty: 2 on | | | | | | 5 / / | | 03/29/2014 by Silviano Cabrera, | | | | | | | | MD | | | | | | | + +------+--------+ +--------+--------+--------+ | Allograft Block Extra Large | | N/A: | NUVASIVE | | 09/27/ | [id number] | | Formagraft Large - | | Back | | | 2018 | 5 / | | [id number]: Qty: 1 on | | | | | | /FG-14 | | 03/29/2014 by Silviano Cabrera, | | | | | | 13 | | MD | | | | | | | + +------+--------+ +--------+--------+--------+ | Graft Sponge Kit Bone Infuse | | N/A: | MEDTRONIC | | 08/27/ | [id number] | | Large 8ml - | | Back | | | 2015 | 0 / | | [id number]: Qty: 1 on | | | | | | /M1112 | | 03/29/2014 by Silviano Cabrera, | | | | | | 06AAY | | | | | | | | | + +------+--------+ +--------+--------+--------+ | Allograft Freeze Dried | | N/A: | LIFENET | | 11/13/ | [id number] | | Demineralized Cancellous Mix | | Spine | HEALTH | | 2017 | T | | Ic Graft Chamber 15cc - | | Lumbar | | | | /74364 | | [id number]: Qty: | | | | | | 57-303 | | 1 on 03/31/2014 by Rick, | | | | | | 1 / | | MD Silviano | | | | | | | + +------+--------+ +--------+--------+--------+ | Graft Sponge Kit Bone Infuse | | N/A: | MEDTRONIC | | 04/01/ | [id number] | | Medium 56ml - | | Spine | | | 2014 | 0 | | [id number]: Qty: 1 | | Lumbar | | | | /[id number] | | on 03/31/2014 by Rick, | | | | | | 05AAW | | MD Silviano | | | | | | / | + +------+--------+ +--------+--------+--------+ | Allograft Freeze Dried | | N/A: | LIFENET | | 11/01/ | [id number] | | Demineralized Cancellous Mix | | Spine | HEALTH | | 2016 | T | | Ic Graft Chamber 15cc - | | Lumbar | | | | /37885 | | [id number]: Qty: | | | | | | 37-301 | | 1 on 03/31/2014 by Rick, | | | | | | 1 / | | MD Silviano | | | | | | | + +------+--------+ +--------+--------+--------+ | Screw Precept Shank Mod | | N/A: | NUVASIVE | | | [id number] | | 7.5x50mm - [id number]: | | Spine | | | | 0 / / | | Qty: 4 on 03/31/2014 by | | Lumbar | | | | | | Silviano Cabrera MD | | | | | | | + +------+--------+ +--------+--------+--------+ | Screw Precept Shank Mod | | N/A: | NUVASIVE | | | [id number] | | 6.5x50mm - [id number]: | | Spine | | | | 0 / / | | Qty: 2 on 03/31/2014 by | | Lumbar | | | | | | Silviano Cabrera MD | | | | | | | + +------+--------+ +--------+--------+--------+ | Screw Locking For 6.25mm Srini | | N/A: | NUVASIVE | | | [id number] | | - [id number]: Qty: 6 | | Spine | | | | 1 / / | | on 03/31/2014 by Rick, | | Lumbar | | | | | | MD Silviano | | | | | | | + +------+--------+ +--------+--------+--------+ | Screw Tulip For 6.25mm Srini - | | N/A: | NUVASIVE | | | [id number] | | [id number]: Qty: 6 on | | Spine | | | | 2 / / | | 03/31/2014 by Silviano Cabrera, | | Lumbar | | | | | | | | | | | | | + +------+--------+ +--------+--------+--------+ | Allograft Freeze Dried | | N/A: | LIFENET | | 11/08/ | [id number] | | Demineralized Cancellous Mix | | Spine | HEALTH | | 2017 | T | | Ic Graft Chamber 15cc - | | Lumbar | | | | /69315 | | [id number]: Qty: | | | | | | 98-303 | | 1 on 03/31/2014 by Rick, | | | | | | 9 / | | MD Silviano | | | | | | | + +------+--------+ +--------+--------+--------+ | Allograft Freeze Dried | | N/A: | LIFENET | | 08/16/ | [id number] | | Demineralized Cancellous Mix | | Spine | HEALTH | | 2016 | T | | Ic Graft Chamber 10cc - | | Lumbar | | | | /44736 | | [id number]: Qty: | | | | | | 22-301 | | 1 on 03/31/2014 by Rick, | | | | | | 3 / | | MD Silviano | | | | | | | + +------+--------+ +--------+--------+--------+ | Allograft Freeze Dried | | N/A: | LIFENET | | 07/13/ | [id number] | | Demineralized Cancellous Mix | | Spine | HEALTH | | 2016 | T | | Ic Graft Chamber 5cc - | | Lumbar | | | | /59763 | | [id number]: Qty: | | | | | | 40-301 | | 1 on 03/31/2014 by Rick, | | | | | | 1 / | | MD Silviano | | | | | | | + +------+--------+ +--------+--------+--------+ | Srini Spherx Dual Ball Ti Dbr | | N/A: | NUVASIVE | | | [id number] | | Ii 42.5mm - | | Spine | | | | 5 / / | | [id number]: Qty: 2 on | | Lumbar | [...] + + + | [facility] | [address] | [place] [address] | [phone] | | LABORATORY | [address]vd[address] | | [...] + + + | [facility] | [address] [facility] | [place] [address] | [phone] | | LABORATORY | Blvd. | | [...] | [address] | [place] [address] | [phone] | | LABORATORY | Blvd. | | [...] 6.9 | 6.3 - 8.2 g/dL | [facility] | | | | | LABORATORY [...] | | | | using the MDRD IDMD | | | | | traceable equation. | | | + + + + + + + | Specimen | + + | Blood | + + + + + + + | Performing | Address | City/State/Zipcode | Phone Number | | Organization | | | | + + + + + | [facility] | [address] | [place] [address] | [phone] | | LABORATORY | Blvd. | | [...] [place] | [place] - | [id number] | Medica | | | | | [...] +--------+-------+ + | MEDICAID | [place] | [id number] | | | [address] | | | N | | | | [place] | | | [place] | | | | [address] | | | SILO TENDER | | | | | + [...] | | al/Fam | | 1945 | [phone] | [place] | | | jana | | | [address] | [address] | + +--------+ +--------+ + +
--- OUTSIDE RECORDS SUMMARY | ~2018-08-18 | XMS | Encounter Summary ---
Demographics + + + | Address | [address] | | | [place] [address] | + + + | Home Phone | | + + + | Preferred Language | Unknown | + + + | Marital Status | | + + + | Jain Affiliation | Unknown | + + + | Race | Unknown | + + + | Ethnic Group | Unknown | + + + Author + + + | Author | [employer] | + + + | Organization | [facility] [employer] [facility] | + + + | Address | Unknown | + + + | Phone | Unavailable | + + + Support + + +---------+ + | Name | Relationship | Address | Phone | + + +---------+ + | Mirza Bee | ECON | Unknown | | + + +---------+ + Care Team Providers + +------+ + | Care Computational Linguist Name | Role | Phone | + [...] | 06/09/ | Documentati | Black | Sivlana [facility]ja, | Other ([facility] | | 2019 | on Only | [facility] | ENTRY LEVEL MANUFACTURING ENGINEER | 05/13/2018) | | | | [address] | | | | | | [place] | | | | | | [address] | | | | | | [phone] | | | +--------+ + + + [...] W | | | | | | [facility] | | | | | | [place] [address] | | | | | | [phone] | | | | | | | | +--------+---------+ + + + as of this encounter Visit Diagnoses Not on filein this encounter"
--- OUTSIDE RECORDS SUMMARY | ~2018-08-18 | XMS | Encounter Summary ---
Demographics + + + | Address | [address] | | | [place] [address] | + + + | Home Phone | | + + + | Preferred Language | Unknown | + + + | Marital Status | | + + + | Latter-Day Affiliation | Unknown | + + + | Race | Unknown | + + + | Ethnic Group | Unknown | + + + Author + + + | Author | [employer] | + + + | Organization | [facility] | + + + | Address | Unknown | + + + | Phone | Unavailable | + + + Support + + +---------+ + | Name | Relationship | Address | Phone | + + +---------+ + | Mirza Bee | ECON | Unknown | | + + +---------+ + Care Team Providers + +------+ + | Care Jeep Mechanic Name | Role | Phone | + +------+ + | Caitlin Chino MD | PCP | | + +------+ + Encounter Details +--------+ + + + + | Date | Type | Department | Care Team | Description | +--------+ + + + + | 07/20/ | Telephone | [facility] | Abeba Douglas MD | | | 2019 | | Rheumatology [address] | | | | [address] | [address] [place] | | | | | [place] [address] | [address] | | | | | [phone] | | | +--------+ + + + [...] | 2018 | Visit | | [address] | | | | | | [place] [address] | | | | | | [place] [address] | | | | | | [phone] | | | | | | | | +--------+---------+ + + + as of this encounter Visit Diagnoses Not on filein this encounter"
--- OUTSIDE RECORDS SUMMARY | ~2018-08-18 | XMS | Encounter Summary ---
Demographics + + + | Address | [address] | | | [place] [address] | + + + | Home Phone | | + + + | Preferred Language | Unknown | + + + | Marital Status | | + + + | Caodaism Affiliation | Unknown | + + + | Race | Unknown | + + + | Ethnic Group | Unknown | + + + Author + + + | Author | [employer] | + + + | Organization | [facility] [employer] [facility] | + + + | Address | Unknown | + + + | Phone | Unavailable | + + + Support + + +---------+ + | Name | Relationship | Address | Phone | + + +---------+ + | Mirza Bee | ECON | Unknown | | + + +---------+ + Care Team Providers + +------+ + | Care Foreclosure Home Inspector Name | Role | Phone | [...] | | | | MRI lumbar | [address] | | | | | | spine | avenue | | | | | | without | [place] | | | | | | contrast | [address] | | | | | | | Phone: | | | | | | | [phone] | | | | | | | Fax: | | | | | | | [phone] | | + +--------+ + + + + Encounter Details +--------+ + + + + | Date | Type | Department | Care Team | Description | +--------+ + + + + | 05/20/ | Hospital | [facility] | See, Medical | Pain | | 2017 | Encounter | [facility] | Record [address] | | | | | RADIOLOGY [address] | [facility] | | | | | [facility] | [place] [address] | | | | | [place] [address] | [phone] | | | | | [phone] | | | +--------+ + + + [...] HOSPITAL | | | | | | [place] [address] | | | | | | [phone] | | | | | | | [...] | [address] | [place] [address] | | + + + + + in this encounter Visit Diagnoses + + | Diagnosis | + + | Pain | + + | Generalized pain | + +"
--- OUTSIDE RECORDS SUMMARY | ~2018-08-18 | XMS | Encounter Summary ---
Demographics + + + | Address | [address] | | | [place] [address] | + + + | Home Phone | | + + + | Preferred Language | Unknown | + + + | Marital Status | | + + + | Protestant Affiliation | Unknown | + + + | Race | Unknown | + + + | Ethnic Group | Unknown | + + + Author + + + | Author | [employer] | + + + | Organization | [facility] [employer] [facility] | + + + | Address | Unknown | + + + | Phone | Unavailable | + + + Support + + +---------+ + | Name | Relationship | Address | Phone | + + +---------+ + | Mirza Bee | ECON | Unknown | | + + +---------+ + Care Team Providers + +------+ + | Care Supervisor Twisting Department Name | Role | Phone | + +------+ + | Davis Ivan MD | PCP | Unavailable | + +------+ + Encounter Details +--------+ + + + + | Date | Type | Department | Care Team | Description | +--------+ + + + + | 06/03/ | Telephone | [facility] | [place], | | | 2018 | | Rheumatology [address] | [address] | | | | | [address] | | | | | | [place] [address] | | | | | | [phone] | | | +--------+ + + + [...] | 2018 | Visit | | [address] | | | | | | [address] [address] | | | | | | [place] [address] | | | | | | [phone] | | | | | | | | +--------+---------+ + + + as of this encounter Visit Diagnoses Not on filein this encounter"
--- OUTSIDE RECORDS SUMMARY | ~2018-08-18 | XMS | Encounter Summary ---
Demographics + + + | Address | [address] | | | [place] [address] | + + + | Home Phone [...] [place] | | | | | [address] | | + + + + + Care Team Providers + +------+ + | Care Yarn Examiner Skeins Name | Role | Phone | + [...] | s, | [address] | [place] [address] | | | | | unspecified | [place], | Phone: | | | | | | [place] | [phone] | | | | | | [address] | Fax: | | | | | | Phone: | [phone] | | | | | | [phone] | | | | | | | Fax: | | | | | | | [phone] | | +--------+--------+ + + + + Encounter Details +--------+---------+ + + + | Date | Type | Department | Care Team | Description | +--------+---------+ + + + | 07/19/ | Office | [facility] [place] | Giuliano Padilla, | Trigger finger of | | 2019 | Visit | ORTHOPEDIC SURGERY | MD [address] | left thumb (Primary | | | | [address] | [place] | Dx); Trigger middle | | | | [place] | [address] | finger of left hand; | | | | [address] | | Trigger ring finger | | | | [phone] | | of left hand | +--------+---------+ [...] [place] | | | | | | [address] | | | | | | | [...]
--- OUTSIDE RECORDS SUMMARY | ~2018-08-18 | XMS | Encounter Summary ---
Demographics + + + | Address | [address] | | | [place] [address] | + + + | Home Phone | | + + + | Preferred Language | Unknown | + + + | Marital Status | | + + + | Evangelical Affiliation | Unknown | + + + | Race | Unknown | + + + | Ethnic Group | Unknown | + + + Author + + + | Author | [employer] | + + + | Organization | [facility] [employer] [facility] | + + + | Address | Unknown | + + + | Phone | Unavailable | + + + Support + + +---------+ + | Name | Relationship | Address | Phone | + + +---------+ + | Mirza Bee | ECON | Unknown | | + + +---------+ + Care Team Providers + +------+ + | Care Abatement Worker Name | Role | Phone | [...] | | | | MRI lumbar | [address] | | | | | | spine | avenue | | | | | | without | [place] | | | | | | contrast | [address] | | | | | | | Phone: | | | | | | | [phone] | | | | | | | Fax: | | | | | | | [phone] | | + +--------+ + + + + Encounter Details +--------+ + + + + | Date | Type | Department | Care Team | Description | +--------+ + + + + | 05/20/ | Hospital | [facility] | See, Medical | Pain | | 2017 | Encounter | [facility] | Record [address] | | | | | RADIOLOGY [address] | [facility] | | | | | [facility] | [place] [address] | | | | | [place] [address] | [phone] | | | | | [phone] | | | +--------+ + + + [...] | 2018 | Visit | | [address] | | | | | | [facility] | | | | | | [place] [address] | | | | | | [phone] | | | | | | | [...] | [address] | [place] [address] | | + + + + + in this encounter Visit Diagnoses + + | Diagnosis | + + | Pain | + + | Generalized pain | + +"
--- OUTSIDE RECORDS SUMMARY | ~2018-08-18 | XMS | Encounter Summary ---
Demographics + + + | Address | [address] | | | [place] [address] | + + + | Home Phone | | + + + | Preferred Language | Unknown | + + + | Marital Status | | + + + | Sikhism Affiliation | Unknown | + + + | Race | Unknown | + + + | Ethnic Group | Unknown | + + + Author + + + | Author | [employer] | + + + | Organization | [facility] | + + + | Address | Unknown | + + + | Phone | Unavailable | + + + Support + + +---------+ + | Name | Relationship | Address | Phone | + + +---------+ + | Mirza Bee | ECON | Unknown | | + + +---------+ + Care Team Providers + +------+ + | Care Outbound Sales Representative Name | Role | Phone | + +------+ + | Caitlin Chino MD | PCP | | + +------+ + Encounter Details +--------+ + + + + | Date | Type | Department | Care Team | Description | +--------+ + + + + | 07/20/ | Telephone | [facility] | Abeba Douglas MD | | | 2019 | | Rheumatology [address] | [address] | | | | [address] | Place [place] | | | | | [place] [address] | [address] | | | | | [phone] | | | +--------+ + + + [...] | 2018 | Visit | | [address] | | | | | | [address] [address] | | | | | | [place] [address] | | | | | | [phone] | | | | | | | | +--------+---------+ + + + as of this encounter Visit Diagnoses Not on filein this encounter"
--- OUTSIDE RECORDS SUMMARY | ~2018-08-18 | XMS | Encounter Summary ---
Demographics + + + | Address | [address] | | | [place] [address] | + + + | Home Phone | | + + + | Preferred Language | Unknown | + + + | Marital Status | | + + + | [employer] Affiliation | Unknown | + + + | Race | Unknown | + + + | Ethnic Group | Unknown | + + + Author + + + | Author | [employer] | + + + | Organization | [email or web address] [employer] [facility] | + + + | Address | Unknown | + + + | Phone | Unavailable | + + + Support + + +---------+ + | Name | Relationship | Address | Phone | + + +---------+ + | Mirza Bee | ECON | Unknown | | + + +---------+ + Care Team Providers + +------+ + | Care Combat Control Name | Role | Phone | + [...] + + | 07/02/ | Refill | [facility] | Abeba Douglas MD | | | 2019 | | Rheumatology [address] | | | | | [address] | [address] [place] | | | | | [place] [address] | [address] | | | | | [phone] | | | +--------+--------+ + + + [...] | 2018 | Visit | | [facility] [address] | | | | | | [facility] | | | | | | [place] [address] | | | | | | [phone] | | | | | | | | +--------+---------+ + + + as of this encounter Visit Diagnoses Not on filein this encounter"
--- OUTSIDE RECORDS SUMMARY | ~2018-08-18 | XMS | Encounter Summary ---
Demographics + + + | Address | [address] | | | [place] [address] | + + + | Home Phone | | + + + | Preferred Language | Unknown | + + + | Marital Status | | + + + | Confucianist Affiliation | Unknown | + + + | Race | Unknown | + + + | Ethnic Group | Unknown | + + + Author + + + | Author | [facility]Glownet [facility]App | + + + | Organization | [facility] | + + + | Address | Unknown | + + + | Phone | Unavailable | + + + Support + + +---------+ + | Name | Relationship | Address | Phone | + + +---------+ + | Mirza Bee | ECON | Unknown | | + + +---------+ + Care Team Providers + +------+ + | Care Law Examiner Name | Role | Phone | [...] + + | 07/02/ | Refill | [facility] | Abeba Douglas MD | | | 2019 | | Rheumatology [address] | | | | | [address] | Place [place] | | | | | [place] [address] | [address] | | | | | [phone] | | | +--------+--------+ + + + [...] | 2018 | Visit | | [address] | | | | | | [facility] | | | | | | [place] [address] | | | | | | [phone] | | | | | | | | +--------+---------+ + + + as of this encounter Visit Diagnoses Not on filein this encounter"
--- OUTSIDE RECORDS SUMMARY | ~2018-08-18 | XMS | Encounter Summary ---
Demographics + + + | Address | [address] | | | [place] [address] | + + + | Home Phone | | + + + | Preferred Language | Unknown | + + + | Marital Status | | + + + | Latter Day Affiliation | Unknown | + + + | Race | Unknown | + + + | Ethnic Group | Unknown | + + + Author + + + | Author | [facility]drIt T[facility]out | + + + | Organization | [facility] | + + + | Address | Unknown | + + + | Phone | Unavailable | + + + Support + + +---------+ + | Name | Relationship | Address | Phone | + + +---------+ + | Mirza Bee | ECON | Unknown | | + + +---------+ + Care Team Providers + +------+ + | Care Bicycle Fitter Name | Role | Phone | [...] | | unspecified | [address] | | | | | ([facility]) | [address] [place] | [place] | | | | | Billed out | 110 | [address] | | | | | for M13.00 | [place], | Phone: | | | | | | [place] | [phone] | | | | | | [address] | Fax: | | | | | | Phone: | [phone] | | | | | | [phone] | | | | | | | Fax: | | | | | | | [phone] | | + +--------+ + + + + Encounter Details +--------+---------+ + + + | Date | Type | Department | Care Team | Description | +--------+---------+ + + + | 07/20/ | Office | [facility] | Abeba Douglas MD | Rheumatoid arthritis | | 2019 | Visit | Rheumatology [address] | with positive | | | | [address] | Place [place] | rheumatoid factor, | | | | [place] [address] | [address] | involving | | | | [phone] | | unspecified site | | | [...] you can send us a message/request u TutorialTab or call our office at [phone]. To reach my PA-C type extension [phone]. If you are unable to reach a [...] can also [facility] If you are experiencing an emergency, [...] She is a 69-year-old woman from [facility] who was previously being diagnosed with [...] Anemia Arthritis COPD (chronic obstructive pulmonary disease) ([facility]) Depression GERD (gastroesophageal reflux disease) Hx of blood clots Hyperlipidemia Hypertension Joint pain Malignant neoplasm (HCC) MARCE (obstructive sleep apnea) 08/02/2013 Other chronic pain RA (rheumatoid arthritis) ([facility]) Stroke ([facility]) 2004 Thyroid disease Unspecified visual [...] from Care everywhereThe labs were reviewed in [facility] Joint Exam Assessment and Plan: [...] | 2018 | Visit | | [address] | | | | | | [facility] | | | | | | [place] [address] | | | | | | [phone] | | | | | | | [...] | + + + + + | [facility] | [address] | [place] [address] | [phone] | | LABORATORY | Blvd. | | [...] | + + + + + | [facility] | [address] | [place] [address] | [phone] | | LABORATORY | Blvd. | | [...] | + + + + + | [facility] | [address] | [place] [address] | [phone] | | LABORATORY | Blvd. | | | + + + + + CBC W/Auto Diff (Reflex to Manual) (07/20/2018 12:47 PM) + + + + + | Component | Value | Ref Range | Performed At | + + + + + | WBC | 14.06 (H) | 3.80 - 11.00 10*3/uL | [facility] | | | | | LABORATORY | [...] | + + + + + | [facility] | [address] | [place] [address] | [phone] | | LABORATORY | Blvd. | | [...]
--- OUTSIDE RECORDS SUMMARY | ~2018-08-18 | XMS | Encounter Summary ---
Demographics + + + | Address | [address] | | | [place] [address] | + + + | Home Phone [...] [place] | | | | | [address] | | + + + + + Care Team Providers + +------+ + | Care Warehouse Delivery Manager Name | Role | Phone | [...] | s, | [address] | [place] [address] | | | | | unspecified | [place], | Phone: | | | | | | [place] | [phone] | | | | | | [address] | Fax: | | | | | | Phone: | [phone] | | | | | | [phone] | | | | | | | Fax: | | | | | | | [phone] | | +--------+--------+ + + + + Encounter Details +--------+---------+ + + + | Date | Type | Department | Care Team | Description | +--------+---------+ + + + | 07/19/ | Office | [facility] [place] | Giuliano Padilla, | Trigger finger of | | 2019 | Visit | ORTHOPEDIC SURGERY | MD [address] | left thumb (Primary | | | | [address] | [place] | Dx); Trigger middle | | | | [place] | [address] | finger of left hand; | | | | [address] | | Trigger ring finger | | | | [phone] | | of left hand | +--------+---------+ [...] [place] | | | | | | [address] | | | | | | | [...]
--- OUTSIDE RECORDS SUMMARY | ~2018-08-18 | XMS | Encounter Summary ---
Demographics + + + | Address | [address] | | | [place] [address] | + + + | Home Phone | | + + + | Preferred Language | Unknown | + + + | Marital Status | | + + + | Jewish Affiliation | Unknown | + + + | Race | Unknown | + + + | Ethnic Group | Unknown | + + + Author + + + | Author | [facility] | + + + | Organization | [facility] | + + + | Address | Unknown | + + + | Phone | Unavailable | + + + Support + + +---------+ + | Name | Relationship | Address | Phone | + + +---------+ + | Mirza Bee | ECON | Unknown | | + + +---------+ + Care Team Providers + +------+ + | Care Hazardous Materials Driver Name | Role | Phone | [...] on Only | Rheumatology [address] | [facility] | reports for | | | | [address] | | 07/29/18) | | | | [place] [address] | | | | | | [phone] | | | +--------+ + + + [...] | | | | | [place] [address] | | | | | | [phone] | | | | | | | | +--------+---------+ + + + as of this encounter Visit Diagnoses Not on filein this encounter"
--- OUTSIDE RECORDS SUMMARY | ~2018-08-18 | XMS | Encounter Summary ---
Demographics + + + | Address | [address] | | | [place] [address] | + + + | Home Phone | | + + + | Preferred Language | Unknown | + + + | Marital Status | | + + + | Muslim Affiliation | Unknown | + + + | Race | Unknown | + + + | Ethnic Group | Unknown | + + + Author + + + | Author | TyraMusiwave Bizzby | + + + | Organization | [facility] [employer] [facility] | + + + | Address | Unknown | + + + | Phone | Unavailable | + + + Support + + +---------+ + | Name | Relationship | Address | Phone | + + +---------+ + | Mirza Bee | ECON | Unknown | | + + +---------+ + Care Team Providers + +------+ + | Care Household Cook Name | Role | Phone | [...] + + | 07/29/ | Documentati | [facility] | Jacqueline Govea, | Other ([facility] | | 2019 | on Only | Rheumatology [address] | [facility] | reports for | | | | [address] | | 07/29/18) | | | | [place] [address] | | | | | | [phone] | | | +--------+ + + + [...] | | | | | [place] [address] | | | | | | [phone] | | | | | | | | +--------+---------+ + + + as of this encounter Visit Diagnoses Not on filein this encounter"
--- OUTSIDE RECORDS SUMMARY | ~2018-08-18 | XMS | Encounter Summary ---
Demographics + + + | Address | [address] | | | [place] [address] | + + + | Home Phone | | + + + | Preferred Language | Unknown | + + + | Marital Status | | + + + | Mosque Affiliation | Unknown | + + + | Race | Unknown | + + + | Ethnic Group | Unknown | + + + Author + + + | Author | [employer] | + + + | Organization | [facility] | + + + | Address | Unknown | + + + | Phone | Unavailable | + + + Support + + +---------+ + | Name | Relationship | Address | Phone | + + +---------+ + | Mirza Bee | ECON | Unknown | | + + +---------+ + Care Team Providers + +------+ + | Care Timber Management Specialist Name | Role | Phone [...] | | | | MRI lumbar | [place] | | | | | | spine | avenue | | | | | | without | [place] | | | | | | contrast | [address] | | | | | | | Phone: | | | | | | | [phone] | | | | | | | Fax: | | | | | | | [phone] | | + +--------+ + + + + Encounter Details +--------+ + + + + | Date | Type | Department | Care Team | Description | +--------+ + + + + | 05/20/ | Ancillary | [facility] | See, Medical | Pain | | 2018 | Orders | [facility] MRI | Record [address] | | | | | [address] [facility] | [address] [place] [address] | | | | | [place] [address] | [place] [address] | | | | | [phone] | [phone] | | | | | | | [...] | 2018 | Visit | | [address] | | | | | | [facility] | | | | | | [place] [address] | | | | | | [phone] | | | | | | | [...] | + + + + + | [facility] | [address] | [place] [address] | | + + + + + in this encounter Visit Diagnoses + + | Diagnosis | + + | Pain | + + | Generalized pain | + +"
--- OUTSIDE RECORDS SUMMARY | ~2018-08-18 | XMS | Encounter Summary ---
Demographics + + + | Address | [address] | | | [place] [address] | + + + | Home Phone | | + + + | Preferred Language | Unknown | + + + | Marital Status | | + + + | Anabaptism Affiliation | Unknown | + + + | Race | Unknown | + + + | Ethnic Group | Unknown | + + + Author + + + | Author | [employer] | + + + | Organization | [facility] | + + + | Address | Unknown | + + + | Phone | Unavailable | + + + Support + + +---------+ + | Name | Relationship | Address | Phone | + + +---------+ + | Mirza Bee | ECON | Unknown | | + + +---------+ + Care Team Providers + +------+ + | Care Venereal Disease Control Head Name | Role | Phone | + +------+ + | Davsi Ivan MD | PCP | Unavailable | [...] | on Only | [facility] | CLINIC SUPERVISOR | 05/13/2018) | | | | [address] | | | | | | [place] | | | | | | [address] | | | | | | [phone] | | | +--------+ + + + [...] | 2018 | Visit | | [address] | | | | | | [facility] | | | | | | [place] [address] | | | | | | [phone] | | | | | | | | +--------+---------+ + + + as of this encounter Visit Diagnoses Not on filein this encounter"
--- OUTSIDE RECORDS SUMMARY | ~2018-08-18 | XMS | Encounter Summary ---
Demographics + + + | Address | [address] | | | [place] [address] | + + + | Home Phone | | + + + | Preferred Language | Unknown | + + + | Marital Status | | + + + | Orthodoxy Affiliation | Unknown | + + + | Race | Unknown | + + + | Ethnic Group | Unknown | + + + Author + + + | Author | [facility] [employer] [facility] | + + + | Organization | [facility] | + + + | Address | Unknown | + + + | Phone | Unavailable | + + + Support + + +---------+ + | Name | Relationship | Address | Phone | + + +---------+ + | Mirza Bee | ECON | Unknown | | + + +---------+ + Care Team Providers + +------+ + | Care Lawyers Name | Role | Phone | + [...] | | | | MRI lumbar | [place] | | | | | | spine | avenue | | | | | | without | [place] | | | | | | contrast | [address] | | | | | | | Phone: | | | | | | | [phone] | | | | | | | Fax: | | | | | | | [phone] | | + +--------+ + + + + Encounter Details +--------+ + + + + | Date | Type | Department | Care Team | Description | +--------+ + + + + | 05/20/ | Ancillary | [facility] | See, Medical | Pain | | 2018 | Orders | [facility] MRI | Record [address] | | | | | [address] [facility] | [address] [place] [address] | | | | | [place] [address] | [place] [address] | | | | | [phone] | [phone] | | | | | | | [...] | 2018 | Visit | | [address] | | | | | | [facility] | | | | | | [place] [address] | | | | | | [phone] | | | | | | | [...] | + + + + + | [facility] | [address] | [place] [address] | | + + + + + in this encounter Visit Diagnoses + + | Diagnosis | + + | Pain | + + | Generalized pain | + +"
--- OUTSIDE RECORDS SUMMARY | ~2018-08-18 | XMS | Encounter Summary ---
Demographics + + + | Address | [address] | | | [place] [address] | + + + | Home Phone | | + + + | Preferred Language | Unknown | + + + | Marital Status | | + + + | Hoahaoism Affiliation | Unknown | + + + | Race | Unknown | + + + | Ethnic Group | Unknown | + + + Author + + + | Author | [employer] | + + + | Organization | [facility] | + + + | Address | Unknown | + + + | Phone | Unavailable | + + + Support + + +---------+ + | Name | Relationship | Address | Phone | + + +---------+ + | Mirza Bee | ECON | Unknown | | + + +---------+ + Care Team Providers + +------+ + | Care Bumper Machine Operator Name | Role | Phone [...] + + | 07/29/ | Documentati | [facility] | Jacqueline Govea, | Other ([facility] | | 2019 | on Only | Rheumatology [address] | [facility] | reports for | | | | [address] | | 07/29/18) | | | | [place] [address] | | | | | | [phone] | | | +--------+ + + + [...] | | | | | [place] [address] | | | | | | [phone] | | | | | | | | +--------+---------+ + + + as of this encounter Visit Diagnoses Not on filein this encounter"
--- OUTSIDE RECORDS SUMMARY | ~2018-08-18 | XMS | Clinical Summary ---
Demographics + + + | Address | [address] | | | [place] [address] | + + + | Home Phone | | + + + | Preferred Language | Unknown | + + + | Marital Status | Single | + + + | Baptism Affiliation [...] Team Providers + +------+ + | Care Worship Director Name | Role | Phone | + +------+ + | Ayana Taylor MD | PP | Unavailable | + +------+ + Source Comments KARISHMA is fully live on both [facility] and [facility] Allergies Not on File Current Medications Not [...] | | | + +--------+ +--------+-------+---------+ | TECHNICAL SERVICES SPECIALIST MEDICAID | TECHNICAL SERVICES SPECIALIST | xxxxxxxx | Medica | | | [...] | | al/Fam | | 1945 | [phone] | [place] [address] | | | jana | | | [phone] | | + +--------+ +--------+ + +"
--- OUTSIDE RECORDS SUMMARY | 2018-08-18 14:36 | XMS ---
PreManage Notification: TENA VILLALOBOS Security Hearing Therapy Director Events No recent Security Events currently on file CRITERIA MET - [facility] - [facility] - 2 Visits in 30 Days CARE PROVIDERS Duncan Contreras Infantry Unit Leader/Yield Loss Inspector 03/01/2012-Current [facility]: [phone] [facility] LOBO Vaughan PHONE: Unknown [facility] 08/03/2018-[facility] TONYA PHONE: [phone] Duncan Contreras Primary Care 03/01/2012-Current PHONE: [phone] LOBO Vaughan Primary Care 03/01/2015-Current VLADIMIR PHONE: Unknown Other Current PHONE: Unknown Mila has no Care Guidelines for this patient. [place] VISIT COUNT (12 MO.) 4 [facility] Yuan TOTAL 4 NOTE: Visits indicate total known visits. ED/UCC VISIT TRACKING (12 MO.) 08/18/2018 14:34 [facility] [place] TYPE: Emergency COMPLAINT: - SOB,ABD PAIN,RECTAL BLEEDING 08/02/2018 14:36 [facility] TYPE: Emergency COMPLAINT: - L SHOULDER PAIN/NO INJURY DIAGNOSES: - Personal history of nicotine dependence - Personal history of transient ischemic attack (TIA), and cerebral infarction without residual deficits - Pain in left shoulder - Bursitis of left shoulder - senior living (current) use of anticoagulants - Chronic obstructive pulmonary disease, unspecified - Essential (primary) hypertension - Other keno terminal operator (current) drug therapy 02/08/2018 19:40 [facility] TYPE: Emergency [...] [affective] disorder - Rheumatoid arthritis, unspecified - terminal worker (current) use of anticoagulants - Hypothyroidism, unspecified [...] hypertension - Spinal stenosis, site unspecified - terminal worker (current) use of systemic steroids - Other pulmonary embolism without acute cor pulmonale - Chronic obstructive pulmonary disease, unspecified - Rheumatoid arthritis, unspecified - Personal history of transient ischemic attack (TIA), and cerebral infarction without residual deficits - senior living (current) use of antithrombotics/antiplatelets - Nicotine dependence, unspecified, uncomplicated - Hypothyroidism, unspecified - Psychophysiologic insomnia - Gastro-esophageal reflux disease without esophagitis - Unspecified mood [affective] disorder - Malignant neoplasm of unspecified part of unspecified bronchus or lung - Other detention (current) drug therapy [email or web address]
--- NOTE | 2018-08-18 18:41 | NUR ---
PATIENT ARRIVED TO MED SURG, TRANSFERRED TO BED INDEPENDANTLY.
--- NOTE | 2018-08-18 20:06 | NUR ---
MEDICATED WITH OXYCODONE 5MG PO C/O 01/08 OVERALL ABD PAIN. RECEIVED 5MG COUMADIN. WATCHING TV, CALL LIGHT AT BEDSIDE
--- NOTE | 2018-08-18 22:26 | NUR ---
AWAKE, WATCHING TV. O2 2L NC IN PLACE, CPOX AT 97%. R 20, IMPROVED BREATHING STATRED. DENIES SOB AT THIS TIME, NO FURTHER C/O PAIN, MED EFFECTIVE, STATED "I HAVE CHRONIC PAIN". COOPERATIVE WITH ASSESSMENT. HOB ELEVATED. CALL LIGHT AND FLUIDS AT BEDSIDE.
--- NOTE | 2018-08-18 23:51 | NUR ---
resting, eyes closed,O2 no c/o pain or sob. call light and fluids at bedside
--- NOTE | 2018-08-19 02:35 | NUR ---
RESTING, NO DISTRESS, O2 IN PLACE, CALL LIGHT AT BEDSIDE
--- NOTE | 2018-08-19 04:50 | NUR ---
CURRENTLY RESTING. O2 3L NC CHRONIC, SOB WITH EXERTION NOTED EARLIER IN SHIFT. GOT NEBS TX. WAS MEDICATED X1 WITH OXYCODONE 5MG PO PER GENERALIZED ABD PAIN AND SOB, EFFECTIVE. HAS SLEPT THIS SHIFT. EDEMA AT ANKLES AND FEET, FEET ELEVATED.
--- NOTE | 2018-08-19 06:01 | NUR ---
UP TO BR, VOIDED DARK YELLOW URINE,RED BUTTOCKS AREA, BARRIER CREAM APPLIED. LARGE HEMORROID PRESENT. .BACK TO BED. O2 2L NC, CPOX AT 96-100% EVEN ON RETURN, INCREASED RESPIRATION WITH EXERTION PRESENT R 18 AT REST AND 38 ON RETURN , AFTER LESS THAN ONE MINUTE, RESP WENT DOWN TO 24-26. PT REQUIRES 1PA. C/O GENERALIZED ABD PAIN. MEDICATED WITH OXYCODONE 5MG PO. L PORT PATENT. PT COOPERATIVE WITH BLOOD DRAW. CALL LIGHT AND FLUIDS AT BEDSIDE. NO OTHER REQUESTS. WATCHING TV.
--- NOTE | 2018-08-19 08:02 | NUR ---
MORNING ASSESSMENT DONE. PATIENT RATES ABD PAIN 5/10 AFTER MEDICATION AND SAID, "THAT'S ABOUT GOOD IT GETS RIGHT NOW." PATIENT ON 2L OF OXYGEN AND SATS ARE 96-100% PATIENT HAS COARSE LUNGS IN ALL AREAS, AUDIBLE EXPIRATORY WHEEZES. PATIENT UP TO CHAIR FOR BREAKFAST, WARM BLANKETS PROVIDED, DENIES OTHER NEEDS AT THIS TIME.
--- NOTE | 2018-08-19 09:30 | EKG ---
[facility] [address] [facility] [place] [address] Signed Normal sinus rhythm Minimal voltage criteria for LVH, may be normal variant Borderline ECG When compared with ECG of 08-FEB-2018 19:47, ST no longer depressed in Lateral leads Confirmed by ROHITH JACKSON MD ([id number]) on 08/19/2018 9:30:27 AM Electronically Signed By: ROHITH JACKSON MD 08/19/18 0930 PATIENT NAME: TENA VILLALOBOS Electrocardiogram DATE OF : 43 PHYSICIAN: ROHITH JACKSON MD REPORT #: [id number] REPORT IS CONFIDENTIAL AND NOT TO BE RELEASED WITHOUT AUTHORIZATION
--- NOTE | 2018-08-19 10:16 | NUR ---
PATIENT REPORTS PAIN IS 5/10 AND IS RESTING IN BED.
[2018-08-19] MEDS ORDERED: VIRTUSSIN AC L118 ML PO (10:27)
--- NOTE | 2018-08-19 13:43 | NUR ---
PATIENT GIVEN AFTERNOON MEDICATIONS, PAIN MEDICATIONS GIVEN FOR 8/10 BACK PAIN. LEFT CHEST PORT DRESSING CHANGED.
--- NOTE | 2018-08-19 14:26 | NUR ---
PT STATES THAT IF SHE WERE TO NEED O2 SHE WOULD LIKE TO GET IT THROUGH IN HOME MEDICAL. PT STATES SHE ALREADY HAS A WALKER.
[2018-08-19] MEDS ORDERED: [UNRECOGNIZED DRUG - OTHER] PO (14:56)
--- NOTE | 2018-08-19 14:57 | NUR ---
MED REC COMPLETE
--- NOTE | 2018-08-19 15:57 | NUR ---
PATIENT UP TO BATHROOM TO BM, BACK TO BED. PATIENT IS MOVING ABOUT ROOM MORE, REPORTED FEELING LESS SHORT OF BREATH.
--- NOTE | 2018-08-19 16:19 | NUR ---
PATIENT CONTINUES ON OXYGEN, REPORTS FEELING SLIGHTLY BETTER TODAY THAN TOMORROW.
--- NOTE | 2018-08-19 19:05 | NUR ---
SHIFT REPORT RECEIVED FROM SARITA RHODES. PT AWAKE IN ROOM, 1.5LNC IN PLACE, DENIES SOB AT THIS TIME. RR WNL. DENIES NEEDS, CALL LIGHT IN REACH.
--- NOTE | 2018-08-19 22:30 | NUR ---
ASSESSMENT COMPLETE, VSS. PT A/OX4, RATES PAIN 7/10, PRN OXYCODONE ADMINISTERED FOR PAIN. SCHEDULED MEDS GIVEN (SEE EMAR). THIS RN UNABLE TO RECIEVE BLOOD RETURN TO PORT-A-CATH, FLUSHES WELL. SECOND RN MICHAEL AND BLOCK TRADER ETIENNE ALSO UNABLE TO RECEIVED BLOOD RETURN. MULTIPLE POSITIONAL CHANGES UNSUCCESSFUL. PER POLICY, DR JACKSON NOTIFIED. VORB TO DEACCESS PORT AND RETRY TO ACCESS PORT. PT DENIES SOB AT THIS TIME. WILL RETRY TO ACCESS PORT. CALL LIGHT IN REACH.
--- NOTE | 2018-08-19 22:41 | NUR ---
VITALS AND I &OS DONE AND CHAARTED. SODA AND ICE WATER GIVEN. BEDSIDE TABLE AND CALL LIGHT IN REACH.
--- NOTE | 2018-08-20 00:15 | NUR ---
THIS RN IN ROOM, PORT REACCESSED, UNABLE TO RETURN BLOOD. FLUSHES WELL. PT REPOSITIONED AND BLOOD RETURN WAS UNSUCCESSFUL BY THIS RN AND ADULT PROBATION OFFICER ETIENNE. NEW DRESSING IN PLACE. DR JACKSON NOTIFED AGAIN PER POLICY OF UNSUCCESSFUL BLOOD RETURN. PER DR JACKSON, OKAY TO USE PORT-A-CATH IF FLUSHES WELL EVEN IF BLOOD RETURN IS NOT PRESENT. DR JACKSON STATED, "IT'S OKAY TO USE IF IT FLUSHES WELL". LUG BREAKER AND WIRE PULLER BENTON AND ADULT PROBATION OFFICER AWARE. SCHEDULED SOLU-MEDROL ADMINSITERED, PORT HEP LOCKED PER POLICY. PT DENIES NEEDS, CALL LIGHT IN REACH.
--- NOTE | 2018-08-20 00:18 | NUR ---
HELPED PT TO THE BACK TO BED FROM THE BATHROOM. BEDSIDE TABLE AND CALL LIGHT IN REACH.
--- NOTE | 2018-08-20 05:00 | NUR ---
ASSESSMENT COMPLETE. NO NEW CONCERNS. PT A/OX4, DENIES PAIN, CHEST PAIN, SOB, DYSPNEA. O2 SAT 94-95% ON 1LNC. PT UP SBA TO VOID, INSTRUCTED TO USE CALL LIGHT WHEN FINISHED, PT VERBALIZED UNDERSTANDING. CALL LIGHT IN REACH.
--- NOTE | 2018-08-20 05:28 | NUR ---
HELPED PT BACK TO BED FROM THE BATHROOM. VITALS AND I&OS DONE AND CHARTED. GARBAGES EMPTIED. BEDSIDE TABLE AND CALL LIGHT IN REACH. PT NEEDS NOTHING MORE AT THIS TIME.
--- NOTE | 2018-08-20 07:02 | NUR ---
scheduled thyroid med given.
--- NOTE | 2018-08-20 07:05 | NUR ---
dr campbell notifed of critical lab value of 5.67 for INR and pt of 58.6. no new orders.
--- NOTE | 2018-08-20 07:08 | NUR ---
BEDSIDE REPORT RECEIVED FROM ZEV VASQUEZ. PT RESTING SUPINE IN BED, APPEARS TO BE IN NO ACUTE DISTRESS. RESPIRATIONS EVEN AND UNLABORED. CALL LIGHT AND H20 IN REACH.
--- NOTE | 2018-08-20 09:47 | NUR ---
PT SITTING IN CHAIR WATCHING TV, ALERT AND ORIENTED. ASSESSMENT COMPLETED, AM MEDS ADMINISTERED, PT ASSISTED TO BATHROOM AND VOIDS QS CLEAR YELLOW URINE. PT BACK TO BED WITH SBA. CALL LIGHT AND FRESH ICE WATER IN REACH. PT DENIES FURTHER NEEDS OR CONCERNS.
--- NOTE | 2018-08-20 14:17 | NUR ---
PATIENT IN BED WATCHING TV. VITAL SIGNS AND I&O DONE. CALL LIGHT WITHIN REACH. NO OTHER NEEDS AT THIS TIME
--- NOTE | 2018-08-20 17:18 | NUR ---
PATIENT SITTING UP IN CHAIR. VITAL SIGNS AND I&O DONE. CALL LIGHT WITHIN REACH. NO OTHER NEEDS AT THIS TIME
--- NOTE | 2018-08-20 19:15 | NUR ---
SHIFT REPORT RECEIVED FROM DAYSHIFT RN AT BEDSIDE. PT AWAKE AND ON RA. DENIES SOB. FRESH SPRITE PROVIDED PER PT REQUEST. NO FURTHER NEEDS, CALL LIGHT IN REACH.
--- NOTE | 2018-08-20 19:20 | NUR ---
Pt reports 7/10 abd pain generalized. Pt denies nausea sob. PRN po tylenol and oxycodone administered per pt request. Call light and h20 in reach. No needs/concerns voiced. pt tolerating room air o2 satting in mid 90's, rr 18.
--- NOTE | 2018-08-20 20:50 | NUR ---
PT RESTING IN BED, APPEARS COMFORTABLE, NO SIGNS OF DISTRESS NOTED. DENIES NEEDS AT THIS TIME, CURRENTLY WATCHING TELEVISION. CALL LIGHT IN REACH.
--- NOTE | 2018-08-20 21:28 | NUR ---
VITALS AND I&OS DONE AND CHARTED. FRESH ICE WATER AND SODA GIVEN. BEDSIDE TABLE AND CALL LIGHT WITHIN REACH.
--- NOTE | 2018-08-20 22:30 | NUR ---
ASSESSMENT COMPLETE. MEDICATIONS GIVEN (SEE EMAR). PT A/OX4, RATES PAIN 5/10 AND DESCRIBES TOLERABLE FOLLOWING LAST OXYCODONE AND TYLENOL ADMINSITRATION FROM DAYSHIFT ZEV ZAIDI. PT ON RA, DENIES SOB WHEN RESTING IN BED. RR WNL. PORT-A-CATH DRESSING INTACT. PT DENIES NEEDS AT THIS TIME, CALL LIGHT IN REACH.
--- NOTE | 2018-08-20 23:30 | NUR ---
SCHEDULED MELATONIN GIVEN. PT DENIES FURTHER NEEDS, CALL LIGHT IN REACH.
--- NOTE | 2018-08-21 01:10 | NUR ---
scheduled solu-medrol adinistered. port flushed well, blood return noted. hep locked at this time. cpox in place, pt on ra. o2 sat 93%, hr 80. call light in reach.
--- NOTE | 2018-08-21 04:15 | NUR ---
ASSESSMENT COMPLETE. PT REPORTS MILD BLOODY NOSE AFTER VOIDING IN BATHROOM. SPONTANEOUSLY RESOLVED. PT REPORTS 7/10 PAIN, PRN TYLENOL AND OXYCODONE ADMINISTERED. PT ON RA, O2 SAT LOW 90'S. NO FURTHER NEEDS, CALL LIGHT IN REACH. NO DISTRESS NOTED.
--- NOTE | 2018-08-21 04:38 | NUR ---
PT SLEPT ON AND OFF THIS SHIFT. A/OX4, PAIN CONTROLLED WITH PRN TYLENOL AND OXYCODONE. PT SBA W/ AMBULATION. VSS, PT ON RA W/CPOX. PT VOIDING QS, REGULAR DIET, NO NAUSEA. NO BM THIS SHIFT. PORT-A-CATH TO LEFT CHEST, DRESSING IN PLACE, BLOOD RETURN NOTED. PT USES CALL LIGHT APPROPERIATELY.
--- NOTE | 2018-08-21 07:05 | NUR ---
pt resting supine in bed, alert and oriented, watching tv. Pt denies needs or concerns. Bedside report received from ZEV reid. Call light and h2o in reach.
--- NOTE | 2018-08-21 09:52 | NUR ---
PATIENT SITTING UP IN CHAIR. PATIENT GOES TO USE BATHROOM. ONE PERSON ASSISTING. PATIENT BACKS TO CHAIR. VITAL SIGNS AND I&O DONE. CALL LIGHT WITHIN REACH. NO OTHER NEEDS AT THIS TIME
--- NOTE | 2018-08-21 11:42 | NUR ---
PT SITTING UP IN CHAIR STATES SHE WAS AMBULATING IN LAPS IN HER ROOM AND DENIES DIZZINESS BUT REPORTS SLIGHT SOB AFTER AMBULATION BUT STATES SHE IS FEELING BETTER NOW, RR18. FAMILY AT BEDSIDE CALL LIGHT AND H20 IN REACH. PT AGREES TO USE CALL LIGHT IF SHE FEELS UP TO AMBULATE MORE. PT DENIES NEEDS/CONCERNS AT THIS TIME.
--- NOTE | 2018-08-21 13:54 | NUR ---
PATIENT SITTING UP IN CHAIR. VITAL SIGNS AND I&O DONE. SETS UP BATHROOM FOR SHOWER. NO OTHER NEEDS AT THIS TIME
--- NOTE | 2018-08-21 14:00 | NUR ---
PATIENT SITTING UP IN CHAIR. PATIENT GOES TO BATHROOM TO TAKE A SHOWER. ONE PERSON ASSISTING. PATIENT BACKS TO BED. CALL LIGHT WITHIN REACH. NO OTHER NEEDS AT THIS TIME
--- NOTE | 2018-08-21 14:10 | NUR ---
PT RESTING IN SEMIFOWLERS POSITION IN BED WATCHING TV. PT ALERT AND ORIENTED, ASSESSMENT COMPLETED. CALL LIGHT AND H20 IN REACH. NO NEEDS/CONCERNS VOICED. PT STATES SHE IS COMFORTABLE, RESPIRATIONS EVEN AND UNLABORED.
--- NOTE | 2018-08-21 15:18 | NUR ---
PATIENT SITTING UP IN BED. PATIENT'S DINNER AND BREAKFAST ORDERED. CALL LIGHT WITHIN REACH. NO OTHER NEEDS AT THIS TIME
--- NOTE | 2018-08-21 16:19 | NUR ---
PT RESTING IN BED WATCHING TV, REPORTS 7/10 ABDOMINAL PAIN, PT ALSO REPORTS HAVING SOFT BROWN BM TODAY AND STATES SHE IS PASSING FLATUS WELL WITH NO NAUSEA. PRN PO TYLENOL AND OXYCODONE ADMINISTERED -SEE EMAR. PT ALSO PROVIDED WITH FRESH ICE WATER AND CRANBERRY JUICE/7UP DRINK WELL. CALL LIGHT AND H20 IN REACH. PT STATES SHE WAS ABLE TO AMBULATE 7 LAPS AROUND BED IN HER ROOM AND STATES SHE TOLERATED WELL WITH NO SHORTNESS OF BREATH. PT DENIES FURTHER NEEDS OR CONCERNS.
--- NOTE | 2018-08-21 17:43 | NUR ---
PATIENT SITTING UP IN CHAIR. VITAL SIGNS AND I&O DONE. CALL LIGHT WITHIN REACH. NO OTHER NEEDS AT THIS TIME
--- NOTE | 2018-08-21 19:10 | NUR ---
shift report received from dayshift annalise nath at bedside. pt awake, rr wnl, no distress noted. pt denies needs, call light in reach.
--- NOTE | 2018-08-21 21:21 | NUR ---
ASSESSMENT COMPLETE, SCHEDULED MEDICATIONS GIVEN (SEE EMAR). SCHEDULED SUPPOSITORY AND COLACE HELD PER PT REQUEST. PT RESTING IN BED ON RA, DENIES SOB OR CHEST PAIN. DRESSING TO PORT-A-CATH INTACT. PT REPORTS 8/10 PAIN, PRN TYLENOL AND OXYCODONE ADMINISTERED. FRESH JUICE AT BEDSIDE, NO FURTHER NEEDS, CALL LIGHT IN REACH.
--- NOTE | 2018-08-21 23:41 | NUR ---
PT RESTING IN BED, EYES CLOSED, RR WNL. CALL LIGHT IN REACH.
--- NOTE | 2018-08-22 01:35 | NUR ---
PT RESTING IN BED,CPOX IN PLACE. PT ON RA. O2 SAT 94%, HR IN 70'S. EYES CLOSED, RR WNL. CALL LIGHT IN REACH.
--- NOTE | 2018-08-22 03:54 | NUR ---
ASSESSMENT COMPLETE, NO NEW CONCERNS. PT A/O, RATES PAIN 01/08. PRN TYLENOL AND OXYCODONE ADMINISTERED. PT UP SBA TO VOID, 900 MLS OUTPUT. PT RESTING IN BED, AUDIBLE WHEEZING NOTED. RT CALLED FOR 0400 BREATHING TREATMENT. NO DISTRESS NOTED, PT ON RA O2 SAT IN LOW 90'S. NO FURTHER NEEDS, CALL LIGHT IN REACH. PORT DRESSING INTACT.
--- NOTE | 2018-08-22 04:58 | NUR ---
PT A/O, PAIN CONTROLLED WITH PRN OXYCODONE AND TYLENOL. VSS, PT ON RA, ORDERS FOR CPOX. SCHEDULED BREATHING TREATMENTS, IS AND ACAPELLA. PT SBA, USES CALL LIGHT APPROPERIATELY. REGULAR DIET, BT ACTIVE, NO NAUSEA THIS SHIFT. MULTIPLE BM ON DAYSHIFT, SCHEDULED COLACE AND SUPPOSITORY HELD PER PT REQUEST. VOIDING QS. PORT IN LEFT CHEST, DRESSING INTACT, HEP LOCKED.
--- NOTE | 2018-08-22 05:33 | NUR ---
VITALS AND I&OS DONE AND CHARTED. FRESH ICE WATER GIVEN. BEDSIDE TABLE AND CALL LIGHT IN REACH.
--- NOTE | 2018-08-22 06:44 | NUR ---
DISCUSSED NEED TO HEP LOCK PT WITH COLLEGE SPECIALIST AND LEGAL INTERNSHIP. PT WAS HEP LOCKED AT 1800 ON DAYSHIFT. NO MEDS SCHEDULED ON THIS SHIFT. PT AND INR WAS ELEVATED. TO ENSURE BLOOD RETURN AND PATENCY, PT'S PORT FLUSHED AND HEP LOCKED. BLOOD RETURN NOTED. FLUSHED AND HEP LOCKED PER POLICY. DRESSING INTACT.
--- NOTE | 2018-08-22 06:47 | NUR ---
SCHEDULED THYROID MEDICATION GIVEN.
--- NOTE | 2018-08-22 07:09 | NUR ---
PT RESTING SUPINE IN BED, EYES CLOSED AND RESPIRATIONS EVEN AND UNLABORED. CALL LIGHT AND H2O IN REACH. REPORT RECEIVED FROM ZEV VASQUEZ. PT APPEARS TO BE SLEEPING COMFORTABLY.
--- NOTE | 2018-08-22 08:55 | NUR ---
PATIENT WAS UP IN BATHROOM EARLIER THIS MORNING AND PERFORMED AM CARE AT THE SINK. THIS HOME HEALTH PHYSICAL THERAPIST ASSISTED PATIENT BACK TO BEDSIDE RECLINER, PATIENT SITTING UP EATING BREAKFAST, CALL LIGHT IN REACH. NO OTHER NEEDS AT THIS TIME.
--- NOTE | 2018-08-22 09:03 | NUR ---
PT SITTING UP IN CHAIR WATCHING TV, AM MEDICATIONS ADMINISTERED AND ASSESSMENT COMPLETED. PT STATES "I HOPE I CAN GO HOME TOMORROW, I'LL WORK ON MY EXERCISE TODAY AND HOPE I'M READY TO GO TOMORROW". CALL LIGHT AND H2O IN REACH. O2 SAT 93% ON RA AND PT DENIES SOB AT REST BUT REPORTS SOB WITH EXERTION. NO NEEDS/CONCERNS VOICED.
--- NOTE | 2018-08-22 10:19 | NUR ---
PATIENT SITTING UP IN BEDSIDE RECLINER, CALL LIGHT IN REACH. PATIENT RESTING WITH EYES CLOSED AND STATES THAT SHE IS SO SLEEPY TODAY EVEN THOUGH SHE SLEPT WELL LAST NIGHT. NO OTHER NEEDS AT THIS TIME.
--- NOTE | 2018-08-22 12:35 | NUR ---
pt assisted with ambulating in stroud with one person sba assist only and fww. Pt tolerated well with only slight shortness of breath, o2 sats maintained in 90's. Call ligth and h20 in reach. Pt denies further needs concerns.
[2018-08-22] MEDS ORDERED: PREDNISONE5 MG PO (12:57)
[2018-08-22] MEDS ORDERED: PREDNISONE20 MG PO (12:58)
[2018-08-22] MEDS ORDERED: OXYCODONE HCL5 MG PO (13:00)
[2018-08-22] MEDS ORDERED: HEALTHYLAX17 GM PO (13:06)
[2018-08-22] MEDS ORDERED: DOCUSATE SODIU100 MG PO (13:06)
== END 2018-08-22 14:51 | disposition home or self-care (01) | DRG 189 ==
LOC: ED 14:33 → MS 14:35 → ED 18:29 → MS 18:29
PROVIDERS: ADMIT Internal Medicine
DX: J96.01 Acute respiratory failure with hypoxia (principal); J44.1 Chronic obstructive pulmonary disease with (acute) exacerbation; C34.90 Malignant neoplasm of unspecified part of unspecified bronchus or lung; M79.81 Nontraumatic hematoma of soft tissue; M06.9 Rheumatoid arthritis, unspecified; K21.9 Gastro-esophageal reflux disease without esophagitis; K59.00 Constipation, unspecified; E03.9 Hypothyroidism, unspecified; F39 Unspecified mood [affective] disorder; E78.5 Hyperlipidemia, unspecified; I87.2 Venous insufficiency (chronic) (peripheral); K64.9 Unspecified hemorrhoids; Z86.711 Personal history of pulmonary embolism; Z79.01 Long term (current) use of anticoagulants; Z79.891 Long term (current) use of opiate analgesic; Z79.51 Long term (current) use of inhaled steroids; Z79.52 Long term (current) use of systemic steroids; Z79.899 Other long term (current) drug therapy
CPT/HCPCS: 36415; 71045; 74177; 80053; 83880; 84484; 85025; 85610; 93005; 93010; 94640; 94668; 96374; 96375; 99285-25; J1170; J2930; Q9967

== ENCOUNTER 2019-05-05 11:26 | Inpatient (IN) | payer MEDICARE, OTHER ==
[~2019-05-05] VITALS: Ht 157.5 cm; Wt 67.1 kg
--- OUTSIDE RECORDS SUMMARY | ~2019-05-05 | XMS | Encounter Summary ---
Demographics + + + | Address | [address] | | | [place] [address] | + + + | Home Phone | | + + + | Preferred Language | Unknown | + + + | Marital Status | | + + + | Synagogue Affiliation | Unknown | + + + | Race | Unknown | + + + | Ethnic Group | Unknown | + + + Author + + + | Author | [facility] | | | and [place] | + + + | Organization | [facility] | | | and [place] | + + + | Address | Unknown | + + + | Phone | Unavailable | + + + Support + + + + + | Name | Relationship | Address | Phone | + + + + + | Mirza Bee | ECON | Unknown | | + + + + + | Jewel Azevedo | ECON | [address] | | | | | [place] | | | | | [address] | | + + + + + Care Team Providers + +------+ + | Care Career Development Coordinator Name | Role | Phone | + +------+ + | Davis Ivan MD | PCP | | + +------+ + Encounter Details +--------+ + + + + | Date | Type | Department | Care Team | Description | +--------+ + + + + | 04/13/ | Hospital | [facility] | [place], | Pulmonary nodule | | 2012 | Encounter | [facility] | Ayana Looney MD | | | | | [address] | | | | | | [place] | | | | | | [address] | | | | | | [phone] | | | +--------+ + + + + Social History + + + +--------+ + | Tobacco Use | Types | Packs/Day | Years | Date | | | | | Used | | + + + +--------+ + | Former Smoker | Cigarettes | 1 | 50 | Quit: 08/21/2012 | + + + +--------+ + + + +---------+ + | Alcohol Use | Drinks/Week | oz/Week | Comments | + + +---------+ + | No | | | | + + +---------+ + + + + | Sex Assigned at | Date Recorded | | | | + + + | Not on file | | + + + + + + + | Job Start Date | Occupation | Industry | + + + + | Not on file | Not on file | Not on file | + + + + + + + + | Travel History | Travel Start | Travel End | + + + + + + | No recent travel history available. | + + documented as of this encounter Medications at Time of Discharge + + + +---------+--------+ + | Medication | Sig | Dispensed | Refills | Start | End Date | | | | | | Date | | + + + +---------+--------+ + | cholecalciferol | Take 2,000 Units by | | 0 | | | | (VITAMIN D-3) 1,000 | mouth Daily. | | | | | | units capsule | | | | | | + + + +---------+--------+ + | simvastatin | Take 40 mg by mouth | | 0 | | | | (ZOCOR) 40 mg tablet | nightly. | | | | | + + + +---------+--------+ + | albuterol 2.5 mg/3 | Take 2.5 mg by | | 0 | | | | mL nebulizer | nebulization every 6 | | | | 6 | | solution | hours as needed. | | | | | + + + +---------+--------+ + | aspirin 81 MG | Take 81 mg by mouth | | 0 | | | | tablet | Daily. | | | | 7 | + + + +---------+--------+ + | cloNIDine | Take 0.1 mg by mouth | | 0 | | | | (CATAPRES) 0.1 mg | 2 times daily. | | | | 4 | | tablet | | | | | | + + + +---------+--------+ + | clopidogrel | Take 75 mg by mouth | | 0 | | | | (PLAVIX) 75 mg | Daily. | | | | 4 | | tablet | | | | | | + + + +---------+--------+ + | diazepam (VALIUM) | Take 2 mg by mouth | | 0 | | | | 2 mg tablet | Daily. | | | | 4 | + + + +---------+--------+ + | ferrous sulfate | Take 28 mg by mouth | | 0 | | | | (IRON) 28 MG TABS | Daily. | | | | 7 | + + + +---------+--------+ + | folic acid 1 mg | Take 1 mg by mouth | | 0 | | | | tablet | Daily. | | | | 7 | + + + +---------+--------+ + | levothyroxine | Take 75 mcg by mouth | | 0 | | | | (SYNTHROID) 100 mcg | every morning | | | | 6 | | tablet | (before breakfast). | | | | | + + + +---------+--------+ + | lisinopril | Take 10 mg by mouth | | 0 | | | | (PRINIVIL, ZESTRIL) | 3 times daily. | | | | 4 | | 10 mg tablet | | | | | | + + + +---------+--------+ + | Magnesium 100 MG | Take by mouth | | 0 | | | | CAPS | Daily. | | | | 7 | + + + +---------+--------+ + | methotrexate 2.5 | Take 25 mg by mouth | | 0 | | | | mg tablet | Once a week. | | | | 6 | + + + +---------+--------+ + | morphine (MSIR) 30 | Take 10 mg by mouth | | 0 | | | | MG tablet | every 4 hours as | | | | 4 | | | needed. | | | | | + + + +---------+--------+ + | omeprazole | Take 20 mg by mouth | | 0 | | | | (PRILOSEC) 20 mg | Twice daily | | | | 5 | | capsule | breakfast/Bedtime. | | | | | + + + +---------+--------+ + | predniSONE | Take 10 mg by mouth | | 0 | | | | (DELTASONE) 5 mg | Daily. | | | | 6 | | tablet | | | | | | + + + +---------+--------+ + | venlafaxine | Take 37.5 mg by | | 0 | | | | (EFFEXOR) 75 MG | mouth 2 times daily. | | | | 6 | | tablet | | | | | | + + + +---------+--------+ + documented as of this encounter Progress Notes Ayana Taylor MD - 04/13/2013 5:25 PM PST Quick Note: Please let the patient know their lab result is normal except their protein is low. Encour age good protein intake. documented in this encounter Plan of Treatment +--------+ + + + + | Date | Type | Specialty | Care Team | Description | +--------+ + + + + | 05/30/ | Office | Rheumatology | Santosh Sumner, | | | 2018 | Visit | | [address] | | | | | | [facility] | | | | | | [place] [address] | | | | | | [phone] | | | | | | | | +--------+ + + + + | 06/08/ | Office | Physical Medicine | Rocky Santos, | | | 2019 | Visit | and Rehabilitation | MD [address] | | | | | | [place] | | | | | | [address] | | | | | | | | +--------+ + + + + | 06/16/ | Appointment | Pulmonology | Eveline Jaffe | | | 2019 | | | MD [address] | | | | | | [address] | | | | | | [place] [address] | | | | | | [phone] | | | | | | | | +--------+ + + + + | 06/16/ | Office | Pulmonology | Eveline Jaffe | | | 2019 | Visit | | MD [address] | | | | | | [address] | | | | | | [place] [address] | | | | | | [phone] | | | | | | | | +--------+ + + + + | 08/24/ | Office | Cardiology | Anisha Lopez DO | | | 2019 | Visit | | [address] | | | | | | [place], [place] | | | | | | [address] | | | | | | | | +--------+ + + + + documented as of this encounter Procedures + +--------+ + + + | Procedure Name | Priori | Date/Time | Associated Diagnosis | Comments | | | ty | | | | + +--------+ + + + | XR CHEST PA AND | Routin | 04/13/2013 | Pulmonary nodule | Results for this | | LATERAL | e | 3:30 PM | | procedure are in the | | | | PST | | results section. | + +--------+ + + + | HEPATIC FUNCTION | Routin | 04/13/2013 | Pulmonary nodule | Results for this | | PANEL | e | 2:12 PM | | procedure are in the | | | | PST | | results section. | + +--------+ + + + documented in this encounter Results XR Chest PA and Lateral (04/13/2013 3:30 PM PST) + + | Specimen | + + | | + + + + + | Narrative | Performed At | + + + | [facility] | [facility] | | [place] | [place] | | [ rep ct [address]] [ rep ct [facility] | | st zip] Signed | - IMAGING | | | | | Patient Name: THEA CARMONA Physician: | | | [id number] : 1945 Age: 67 Sex: F Unit #: [id number] | | | Exam Date: 04/13/13 Location: LAB | | | Report #: [id number] Page: | | | %(RAD)RES..mtdd.print.filter("pg") of %(RAD) | | | RES..mtdd.print.filter("tpg") | | | | | | Accession Number: [id number] | | | CHEST, PA AND LATERAL, 04/13/2013 CLINICAL HISTORY: | | | FOLLOWUP OF CAVITARY NODULE. COMPARISON: None. | | | FINDINGS: PA and lateral views of the chest were obtained. | | | There is a 1.3 cm nodule with apparent spiculation in the right | | | mid lung medially. The left lung is relatively clear. | | | Cardiomediastinal silhouette is normal. There is mild | | | spondylosis of the thoracic spine. Fusion hardware is noted of the | | | lower cervical spine. There are some clips seen in the right upper | | | quadrant of the abdomen. IMPRESSION: 1. | | | 1.3 CM NODULAR DENSITY IN RIGHT MID LUNG MEDIALLY. FURTHER | | | INFORMATION CAN BE OBTAINED WITH CT SCANNING IF CLINICALLY | | | INDICATED. Dictated Date/Time: 04/13/2013 15:30 | | | Transcribed Date/Time: 04/13/2013 17:08 Hydrodynamics Professor: | | | <<Signature on File>> | | | Matheus | | | MD Kang04/13/13 0766 <Electronically signed by Matheus Kapadia MD> | | | Matheus Kapadia MD 04/13/13 5888 Hydrodynamics Professor: Next Jumpgeorgina | | | Hdpvpcvtmvqhe25/13/13 2594 Ayana Taylor MD | | | | | + + + + + + + + | Performing | Address | City/State/Zipcode | Phone Number | | Organization | | | | + + + + + | [facility] | [address] | [place] | [phone] | | [facility] | | [address] | | | - IMAGING | | | | + + + + + Hepatic Function Panel (04/13/2013 2:12 PM PST) + + + + + + | Component | Value | Ref Range | Performed | Pathologist | | | | | At | Signature | + + + + + + | Alkaline | 78 | 40 - 110 IU/L | [facility] | | | Phosphatase | | | [facility] | | | [facility] | | [facility] | | | | | | C[facility] - | | | | | | LABORATORY | | + + + + + + | AST | 38 | 10 - 42 IU/L | [facility] | | | | | | [facility] | | | | | | MEDICAL | | | | | | CENTER - | | | | | | LABORATORY | | + + + + + + | ALT | 37 | 6 - 45 IU/L | [facility] | | | | | | [facility] | | | | | | MEDICAL | | | | | | CENTER - | | | | | | LABORATORY | | + + + + + + | Bilirubin | 0.6 | 0.2 - 1.0 mg/dL | [facility] | | | Total | | | [facility] | | | | | | MEDICAL | | | | | | CENTER - | | | | | | LABORATORY | | + + + + + + | Bilirubin | <0.1 | 0.0 - 0.2 mg/dL | [facility] | | | Direct | | | [facility] | | | | | | MEDICAL | | | | | | CENTER - | | | | | | LABORATORY | | + + + + + + | BILIRUBIN | 0.5Comment: DIRECT BILI | 0.00 - 1.00 | [facility] | | | INDIRECT | = CONJUGATED | mg/dL | [facility] | | | | INDIRECT BILI = | | MEDICAL | | | | UNCONJUGATED | | CENTER - | | | | | | LABORATORY | | + + + + + + | Total | 6.7 | 6.0 - 7.8 gm/dL | [facility] | | | Protein | | | [facility] | | | | | | MEDICAL | | | | | | CENTER - | | | | | | LABORATORY | | + + + + + + | Albumin | 2.6 (L) | 3.2 - 5.0 gm/dL | [facility] | | | | | | [facility] | | | | | | MEDICAL | | | | | | CENTER - | | | | | | LABORATORY | | + + + + + + + + | Specimen | + + | Blood specimen | | (specimen) | + + + + + + + | Performing | Address | City/State/Zipcode | Phone Number | | Organization | | | | + + + + + | [facility] | [address] | [place] | [phone] | | [facility] | | [address] | | | - LABORATORY | | | | + + + + + | [facility] | [address] | [place] | | | [facility] | | [address] | | | - LABORATORY | | | | + + + + + documented in this encounter Visit Diagnoses + + | Diagnosis | + + | Pulmonary nodule Solitary pulmonary nodule | + + documented in this encounter
--- OUTSIDE RECORDS SUMMARY | ~2019-05-05 | XMS | Encounter Summary ---
Demographics + + + | Address | [address] | | | [place] [address] | + + + | Home Phone | | + + + | Preferred Language | Unknown | + + + | Marital Status | | + + + | Catholic Affiliation | Unknown | + + + | Race | Unknown | + + + | Ethnic Group | Unknown | + + + Author + + + | Author | [facility] | | | and [place] | + + + | Organization | [facility] | | | and [...] [place] | | | | | [address] | | + + + + + Care Team Providers + +------+ + | Care Dietary Service Aide Name | Role | Phone | + +------+ + | Davis Ivan MD | PCP | | + +------+ + Reason for Visit +--------+ + | Reason | Comments | +--------+ + | Other | CT guided needle biopsy | +--------+ + Encounter Details +--------+ + + + + | Date | Type | Department | Care Team | Description | +--------+ + + + + | 07/05/ | Telephone | [facility] [place] | [place], | Other (CT guided | | 2013 | | PULMONARY [address] | Ayana Looney MD | needle biopsy) | | | | [place], | | | | | | [place] [address] | | | | | | [phone] | | | +--------+ + + + + Social History + + + +--------+ + | Tobacco Use | Types | Packs/Day | Years | Date | | | | | Used | | + + + +--------+ + | Former Smoker | Cigarettes | 1 | 50 | Quit: 08/21/2012 | + + + +--------+ + + + | Comments: using e cigarettes | + + + + +---------+ + | Alcohol [...] + + documented as of this encounter Plan of Treatment +--------+ + + + + | Date | Type | Specialty | Care Team | Description | +--------+ + + + + | 05/30/ | Office | Rheumatology | TaishaSantosh, | | | 2018 | Visit | | [address] | | | | | | [place] | | | | | | [place] [address] | | | | | | [phone] | | | | | | | | +--------+ + + + + | 06/08/ | Office | Physical Medicine | Rocky Santos, | | | 2019 | Visit | and Rehabilitation | MD Nichole Landis | | | | | | [place] | | | | | | [address] | | | | | | | | +--------+ + + + + | 06/16/ | Appointment | Pulmonology | Eveline Jaffe | | | 2019 | | | MD [address] | | | | | | [place] | | | | | | [place] [address] | | | | | | [phone] | | | | | | | | +--------+ + + + + | 06/16/ | Office | Pulmonology | Eveline Jaffe | | | 2019 | Visit | | MD Nichole Carter | | | | | | [place] | | | | | | [place] [address] | | | | | | [phone] | | | | | | | | +--------+ + + + + | 08/24/ | Office | Cardiology | Anisha Lopez DO | | | 2019 | Visit | | [address] | | | | | | [place] | | | | | | [phone] | | | | | | | | +--------+ + + + + documented as of this encounter Visit Diagnoses Not on filedocumented in this encounter"
--- OUTSIDE RECORDS SUMMARY | ~2019-05-05 | XMS | Encounter Summary ---
Demographics + + + | Address | [address] | | | [place] [address] | + + + | Home Phone | | + + + | Preferred Language | Unknown | + + + | Marital Status | | + + + | Jain Affiliation | Unknown | + + + | Race | Unknown | + + + | Ethnic Group | Unknown | + + + Author + + + | Author | [facility] | | | and [place] | + + + | Organization | [facility] | | | [...] [place] | | | | | [address] | | + + + + + Care Team Providers + +------+ + | Care Marketing Data Specialist Name | Role | Phone | + +------+ + | Davis Ivan MD | PCP | | + +------+ + Reason for Visit Auth/Cert +--------+--------+ + + + + | Status | Reason | Specialty | Diagnoses / | Referred By | Referred To | | | | | Procedures | Contact | Contact | +--------+--------+ + + + + | Closed | | | | | | +--------+--------+ + + + + Encounter Details +--------+ + + + + | Date | Type | Department | Care Team | Description | +--------+ + + + + | 08/28/ | Hospital | [facility] | Adelita Lu MD | Recurrent squamous | | 2015 | Encounter | [facility] | [address] | cell carcinoma of | | | | [facility] [address] | [place], [place] | lung, right (HCC) | | | | [address] [place] | [address] | (Primary Dx) | | | | [place] [address] | [phone] | | | | | [phone] | | | +--------+ + + + + Social History + + + +--------+ + | Tobacco Use | Types | Packs/Day | Years | Date | | | | | Used | | + + + +--------+ + | Former Smoker | Cigarettes | 1 | 50 | Quit: 08/21/2012 | + + + +--------+ + + +---+---+---+ | Smokeless Tobacco: | | | | | Never Used | | | | + +---+---+---+ + + | Comments: using e cigarettes | + + + + +---------+ + | Alcohol Use | Drinks/Week | oz/Week | Comments | + + +---------+ + | No | | | pt states she was an | | | | | alcoholic for 40 | | | | | years but quit in | | | | | 05/2012 | + + +---------+ + + + [...] + + documented as of this encounter Last Filed Vital Signs + + + + + | Vital Sign | Reading | Time Taken | Comments | + + + + + | Blood Pressure | 131/75 | 08/28/2014 10:03 AM | | | | | PDT | | + + + + + | Pulse | 80 | 08/28/2014 10:03 AM | | | | | PDT | | + + + + + | Temperature | 37.1 C (98.8 F) | 08/28/2014 10:03 AM | | | | | PDT | | + + + + + | Respiratory Rate | 20 | 08/28/2014 10:03 AM | | | | | PDT | | + + + + + | Oxygen Saturation | 96% | 08/28/2014 10:03 AM | | | | | PDT | | + + + + + | Inhaled Oxygen | - | - | | | Concentration | | | | + + + + + | Weight | 68.2 kg (150 lb 5.7 | 08/28/2014 10:03 AM | | | | oz) | PDT | | + + + + + | Height | 157.5 cm (5' 2.01") | 08/28/2014 10:03 AM | | | | | PDT | | + + + + + | Body Mass Index | 27.49 | 08/28/2014 10:03 AM | | | | | PDT | | + + + + + documented in this encounter Medications at Time of Discharge + + + +---------+ + + | Medication | Sig | Dispensed | Refills | Start | End Date | | | | | | Date | | + + + +---------+ + + | cholecalciferol | Take 2,000 Units by | | 0 | | | | (VITAMIN D-3) 1,000 | mouth Daily. | | | | | | units capsule | | | | | | + + + +---------+ + + | simvastatin | Take 40 mg by mouth | | 0 | | | | (ZOCOR) 40 mg tablet | nightly. | | | | | + + + +---------+ + + | albuterol 2.5 mg/3 | Take 2.5 mg by | | 0 | | | | mL nebulizer | nebulization every 6 | | | | 6 | | solution | hours as needed. | | | | | + + + +---------+ + + | albuterol 90 | Inhale 2 puffs into | 1 | 0 | 07/17/19 | | | mcg/puff inhaler | the lungs every 6 | Inhaler | | 15 | 7 | | | hours as needed for | | | | | | | Wheezing or | | | | | | | Shortness of Breath. | | | | | + + + +---------+ + + | aspirin 81 MG | Take 81 mg by mouth | | 0 | | | | tablet | Daily. | | | | 7 | + + + +---------+ + + | benzonatate | Take 1 capsule by | 42 | 2 | 08/22/19 | | | (INOCENCIO DELUNA) | mouth 3 times daily | capsule | | 15 | 6 | | 100 mg | as needed for Cough. | | | | | | capsuleIndications: | | | | | | | Cough due to | | | | | | | bronchospasm | | | | | | + + + +---------+ + + | | Inhale 2 puffs into | 1 | 5 | 08/24/19 | | | budesonide-formotero | the lungs 2 times | Inhaler | | 15 | 5 | | l (SYMBICORT) | daily. | | | | | | 160-4.5 mcg/puff | | | | | | | inhaler | | | | | | + + + +---------+ + + | clopidogrel | Take 75 mg by mouth | | 0 | | | | (PLAVIX) 75 mg | Daily. | | | | 9 | | tablet | | | | | | + + + +---------+ + + | ferrous sulfate | Take 28 mg by mouth | | 0 | | | | (IRON) 28 MG TABS | Daily. | | | | 7 | + + + +---------+ + + | folic acid 1 mg | Take 1 mg by mouth | | 0 | | | | tablet | Daily. | | | | 7 | + + + +---------+ + + | HYDROmorphone | Take 8 mg by mouth | | 0 | | | | (DILAUDID) 4 MG | every 6 hours as | | | | 6 | | tablet | needed. | | | | | + + + +---------+ + + | levothyroxine | Take 75 mcg by mouth | | 0 | | | | (SYNTHROID) 100 mcg | every morning | | | | 6 | | tablet | (before breakfast). | | | | | + + + +---------+ + + | LORazepam (ATIVAN) | Take 1 tablet by | 20 | 5 | 08/08/19 | | | 1 mg | mouth every 6 hours | tablet | | 15 | 5 | | tabletIndications: | as needed | | | | | | Recurrent squamous | (Nausea/Vomiting). | | | | | | cell carcinoma of | | | | | | | lung, unspecified | | | | | | | laterality (HCC), | | | | | | | Pulmonary nodules | | | | | | + + + +---------+ + + | Magnesium 100 MG | Take by mouth | | 0 | | | | CAPS | Daily. | | | | 7 | + + + +---------+ + + | methotrexate 2.5 | Take 25 mg by mouth | | 0 | | | | mg tablet | Once a week. | | | | 6 | + + + +---------+ + + | ondansetron | Take 1 tablet by | 30 | 3 | 08/09/19 | | | (ZOFRAN) 8 MG | mouth 2 times daily. | tablet | | 15 | 5 | | tabletIndications: | For two days-Days 2 | | | | | | Recurrent squamous | and 3 each wk. On | | | | | | cell carcinoma of | other days, take 8 | | | | | | lung, unspecified | mg every 8 hrs as | | | | | | laterality (HCC), | needed for | | | | | | Pulmonary nodules | nausea/vomiting | | | | | + + + +---------+ + + | pantoprazole | Take 40 mg by mouth | | 0 | | | | (PROTONIX) 40 mg | every morning | | | | 5 | | tablet | (before breakfast). | | | | | + + + +---------+ + + | predniSONE | 4 tabs orally daily | 30 | 0 | 08/25/19 | | | (DELTASONE) 10 mg | for 3 days then | tablet | | 15 | 5 | | tablet | decrease by 1 tab | | | | | | | every 3 days. Resume | | | | | | | 10mg dose when | | | | | | | complete. | | | | | + + + +---------+ + + | predniSONE | Take 10 mg by mouth | | 0 | | | | (DELTASONE) 5 mg | Daily. | | | | 6 | | tablet | | | | | | + + + +---------+ + + | Respiratory | ResMed S9 auto CPAP | 1 each | 99 | 08/23/19 | | | Therapy Supplies | 5-9 cm H2O. Heater | | | 14 | 6 | | MISC | and Humidifier. All | | | | | | | necessary supplies. | | | | | | | AHI 11.6. Diagnosis | | | | | | | Code(s)327.23, also | | | | | | | has co morbid | | | | | | | hypertension, | | | | | | | history of stroke. | | | | | | | Length of Need 99 | | | | | | | months. Please send | | | | | | | order to [facility] | | [facility]. | | | | | + + + +---------+ + + | tiotropium | Inhale 1 capsule | 30 | 11 | 08/12/19 | | | (SPIRIVA HANDIHALER) | into the lungs | capsule | | 15 | 5 | | 18 mcg inhalation | Daily. | | | | | | capsule | | | | | | + + + +---------+ + + | venlafaxine | Take 37.5 mg by | | 0 | | | | (EFFEXOR) 75 MG | mouth 2 times daily. | | | | 6 | | tablet | | | | | | + + + +---------+ + + documented as of this encounter Progress Notes Adelita Lu MD - 08/28/2014 9:44 AM PDT Hem-Onc Progress Note [facility] Patient name:Thea Carmona : 1945 Age: 69 y.o. CSN: [id number] Date of Service: 08/28/2014 Identifying Statement: Thea Carmona is a 69 y.o. female from [facility] with clinical stage II, non-small cell lung cancer (squamous cell). Active Diagnoses: 1.Initially seen by Dr. blandon in March 2013 for a pulmonary nodule , right lower lobe measuring 1.9 cm, biopsy was considered risky . Nodule was considered lik inge infectious/inflammatory as the patient was immunosuppressed , on methotrexate for rheuma toid arthritis. 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 3.PET/CT scan 08/11/2013 showed increased size of the right lung lesion with a maximum SUV o f 6.26. In the right hilar region, a 0.9 cm lymph node was present with maximum SUV of 4.46 consistent with metastatic disease 4. seen by Dr. Mace , thoracic surgeon at [facility] for consideration of broncho scopy, right thoracoscopy, thoracic lymphadenectomy to rule out N2 disease, probable lower l obectomy, possible thoracotomy . Date: September 16, 2013, 5. Right minimally invasive lower lobe lobectomy and minimally invasive thoracoscopic lymp hadenectomy : Dr. José Miguel mace : 09/16/13:3.2x 3.0x1.7 cm tumor, squamous carcinoma, focally invades the visceral pleura without involvement of visceral pleural surface, all margins uni nvolved, all 10 lymph nodes negative for malignancy, T2aN0, stage IB. 6. Presented with an enlarging right upper lobe lung nodule in June 2014. PET CT scan showed an SUV of 2.7 and a large right necrotic hilar lymph node with an SUV of 12.4. 7. Bronchoscopy and EBUS guided FNA of right hilar lymph node: 07/11/2014: Positive for mal ignant cells. Keratinizing squamous cell carcinoma Chief Complaint/HPI: Here for cycle #4 carboplatin and Taxol given concurrently with radiat ion for recurrence of lung cancer in the right hilar node REVIEW OF SYSTEMS Constitutional: States she has no energy. Fatigue, constantly. Denies high fevers, shaking chills, anorexia, weight loss. States her appetite is poor. States she has been nauseated th roughout the day, however no vomiting. States daily night sweats. Ear, Nose, Mouth, Throat: States she has two sores in her mouth still that have not healed yet. No dysphagia, or tinnitus. Cardiovascular: Denies chest pain, palpitations or orthopnea. States SOB and dyspnea, but s eem to be getting better. Respiratory: Denies hemoptysis. States that she has been coughing thick, with white phlegm, however, this morning she states it was bloody. Gastrointestinal: Abdominal cramping throughout lower abdomen. No constipation, diarrhea, m leanne, blood in the stool or rectum. Genitourinary: Denies hematuria or dysuria. Musculoskeletal: States she has Rheumatoid Arthritis. Neurologic: Intermittent headaches that resolved quickly. No visual changes. States numbnes s noticed to her toes. Endocrine: Denies peripheral edema or heat/cold intolerance. Hematologic: States spontaneous bruising and bleeding Integumentary: Denies rash, wounds. Bruising noted to forearms bilaterally. Appears to have fragile skin. Pain: Denies pain. Note: Follow up appointment with Dr. Lu and labs with a 4 hour chemo treatment. My chart:Declined Past Medical History: Past Medical History Diagnosis Date COPD (chronic obstructive pulmonary disease) ([facility]) on albuterol Spondylolisthesis of cervical region Spinal stenosis has tried cortisone injections Osteoporosis Depression Pneumonia 2009 hospitalized 5 days Rheumatoid arthritis(714.0) ([facility]) [facility] on simvastatin Hypertension on clonidine and lisinopril Hypothyroidism GERD (gastroesophageal reflux disease) Stroke ([facility]) 2006 Stroke (HCC) 2007 Squamous cell carcinoma of lung ([facility]) 07/2013 right lower lobe Sputum culture positive for Scopulariopsis species Recurrent squamous cell carcinoma of lung ([facility]) 07/11/[address] and RUL nodule MARCE (obstructive sleep apnea) AHI 11.6 no CPAP Full dentures upper & lower Allergies: No Known Allergies Medications : Patient's Medications New Prescriptions No medications on file Previous Medications ALBUTEROL 2.5 MG/3 ML NEBULIZER SOLUTION Take 2.5 mg by nebulization every 6 hours as n eeded. ASPIRIN 81 MG TABLET Take 81 mg by mouth Daily. BUDESONIDE-FORMOTEROL (SYMBICORT) 160-4.5 MCG/PUFF INHALER Inhale 2 puffs into the lung s 2 times daily. CHOLECALCIFEROL (VITAMIN D-3) 1,000 UNITS CAPSULE Take 1,000 Units by mouth Daily. CLOPIDOGREL (PLAVIX) 75 MG TABLET Take 75 mg by mouth Daily. DIAZEPAM (VALIUM) 2 MG TABLET Take 2 mg by mouth nightly as needed. FERROUS SULFATE (IRON) 28 MG TABS Take 28 mg by mouth Daily. FOLIC ACID 1 MG TABLET Take 1 mg by mouth Daily. HYDROMORPHONE (DILAUDID) 4 MG TABLET Take 4 mg by mouth every 6 hours as needed. LEVOTHYROXINE (SYNTHROID) 100 MCG TABLET Take 75 mcg by mouth every morning (before deshaun akfast). MAGNESIUM 100 MG CAPS Take by mouth Daily. METHOTREXATE 2.5 MG TABLET Take 25 mg by mouth Once a week. OMEPRAZOLE (PRILOSEC) 20 MG CAPSULE Take 20 mg by mouth Twice daily breakfast/Bedtime. POTASSIUM GLUCONATE Take 1 tablet by mouth Daily. PREDNISONE (DELTASONE) 5 MG TABLET Take 10 mg by mouth Daily. RESPIRATORY THERAPY SUPPLIES [employer] ResMed S9 auto CPAP 5-9 cm H2O. Heater and Humidifier . All necessary supplies. AHI 11.6. Diagnosis Code(s)327.23, also has co morbid hypertension , history of stroke. Length of Need 99 months. Please send order to [facility]. RESPIRATORY THERAPY SUPPLIES [employer] Respironics autotitrating CPAP at 5-9 cm H2O for life time. Mask, headgear, chin strap, hoses, humidifier chamber and filters. Dx: 327.23 SIMVASTATIN (ZOCOR) 40 MG TABLET Take 40 mg by mouth nightly. VENLAFAXINE (EFFEXOR) 75 MG TABLET Take 37.5 mg by mouth 2 times daily. Modified Medications No medications on file Discontinued Medications No medications on file Physical Exam: Vitals:Temp: [37.1 C (98.8 F)] 37.1 C (98.8 F) Pulse: [80] 80 Resp: [20] 20 BP: (131)/(75) 131/75 mmHg Gen.: Performance status ECoG 1 . Well nourished, appears well not in apparent distress.. Chest: Clear to auscultation. No wheezes present Extremities: No edema Musculoskeletal: Patient is in a wheelchair today LABORATORY DATA: Recent Results (from the past 24 hour(s)) COMPREHENSIVE METABOLIC PANEL Result Value Range NA 139 136-149 mmol/L K 3.7 3.5-5.1 mmol/L CL 108 98-109 mmol/L CO2 26 24-31 mmol/L ANION GAP 5 3-16 mmol/L GLUCOSE 103 70-109 mg/dL BUN 16 7-18 mg/dL Creatinine, Serum/Plasma 0.91 0.60-1.30 mg/dL eGFR if not >60 >=60 mL/min/1.73m2 CALCIUM 8.8 8.3-10.5 mg/dL ALBUMIN 3.1 (*) 3.2-5.0 g/dL BILIRUBIN TOTAL 0.8 0.1-1.5 mg/dL Total protein 5.6 (*) 6.0-7.8 g/dL AST 24 10-42 U/L ALT 22 6-45 U/L ALK PHOS 51 40-110 U/L GLOBULIN 2.5 Albumin/Globulin ratio 1.2 BUN/CREA 17.6 CBC WITH DIFFERENTIAL Result Value Range WBC 4.2 4.0-11.0 K/uL RBC 3.67 (*) 3.70-5.20 M/uL Hgb 11.3 (*) 11.5-16.0 g/dL Hct 35.1 34.0-47.0 % MCV 95.6 83.0-101.0 fL MCH 30.8 28.0-35.0 pg MCHC 32.2 32.0-36.0 g/dL RDW 20.0 (*) <15.0 % Platelet Count 170 140-440 K/uL MPV 8.0 % Neutrophils 68.5 45.0-82.0 % % Lymphocytes 21.5 20.0-45.0 % % Monocytes 7.7 4.0-12.0 % % Eosinophils 1.2 0.0-5.0 % % Basophils 1.1 (*) 0.0-1.0 % Absolute Neutrophils 2.90 1.80-8.50 K/uL Absolute Lymphocytes 0.90 0.60-3.20 K/uL Absolute Monocytes 0.30 0.00-1.00 K/uL Absolute Eosinophils 0.10 0.00-0.40 K/uL Absolute Basophils 0.00 0.00-0.10 K/uL Imaging: PET/CT scan June 2014: [facility]: Necrotic right lung lesion wit h SUV of 2.7 and right hilar lymph node with SUV of 12.7 IMPRESSION: Stage II squamous non-small cell right lung cancer status post lobectomy August 2013 2. Recurrence of non-small cell lung cancer in June 2014 3. Comorbidities with rheumatoid arthritis on methotrexate, history of stroke in 2005 and 2006 on aspirin and Plavix PLAN: Continue cycle #4 carboplatin AUC 2 and Taxol 45 mg/m concurrent with radiation Dr. Blandon prescribed her steroids for possible exacerbation of COPD. Patient says dave t she has dry cough in the morning with some bright red blood when she coughs, only streaks . She was prescribed nasal saline spray and also advised to use a humidifier Weekly treatment will be followed by 2 systemic rounds of chemotherapy if patient is able t o tolerate the treatment and her performance status allows Total time face to face discussion with the patient and family was 20 minutes, more than 5 0% of the time was spent counseling and coordination of care. Adelita Lu MD Portions of this chart may have been created with [employer] voice recognition software. Occasi onal wrong-word or sound-alike substitutions may have occurred due to the inherent guzman itations of voice recognition software. Please read the chart carefully and recognize, using context, where these substitutions have occurred. documented in this enc ounter Plan of Treatment +--------+ + + + + | Date | Type | Specialty | Care Team | Description | +--------+ + + + + | 05/30/ | Office | Rheumatology | Santosh Sumner, | | | 2018 | Visit | | [address] | | | | | | [place] | | | | | | [place] [address] | | | | | | [phone] | | | | | | | | +--------+ + + + + | 06/08/ | Office | Physical Medicine | Rocky Santos, | | | 2019 | Visit | and Rehabilitation | MD Nichole Landis | | | | | | [place] | | | | | | [address] | | | | | | | | +--------+ + + + + | 06/16/ | Appointment | Pulmonology | Eveline Jaffe | | 2019 | | | MD [address] | | | | | | [place] | | | | | | [place] [address] | | | | | | [phone] | | | | | | | | +--------+ + + + + | 06/16/ | Office | Pulmonology | Eveline Jaffe | | | 2019 | Visit | | MD Raul [address] | | | | | | [place] | | | | | | [place] [address] | | | | | | [phone] | | | | | | | | +--------+ + + + + | 08/24/ | Office | Cardiology | Anisha Lopez DO | | | 2019 | Visit | | [address] | | | | | | [place] | | | | | | [address] | | | | | | | | +--------+ + + + + documented as of this encounter Visit Diagnoses + + | Diagnosis | + + | Recurrent squamous cell carcinoma of lung, right (HCC) - Primary | + + documented in this encounter
--- OUTSIDE RECORDS SUMMARY | ~2019-05-05 | XMS | Encounter Summary ---
Demographics + + + | Address | [address] | | | [place] [address] | + + + | Home Phone | | + + + | Preferred Language | Unknown | + + + | Marital Status | | + + + | Gnosticist Affiliation | Unknown | + + + | Race | Unknown | + + + | Ethnic Group | Unknown | + + + Author + + + | Author | [facility] | | | and [place] | + + + | Organization | [facility] | | | and [...] [place] | | | | | [address] | | + + + + + Care Team Providers + +------+ + | Care Manager Sales And Marketing Name | Role | Phone | + +------+ + | Davis Ivan MD | PCP | | + +------+ + Encounter Details +--------+ + + + + | Date | Type | Department | Care Team | Description | +--------+ + + + + | 10/22/ | Hospital | [facility] | Giuliano Padilla, | Hyperlipidemia, | | 2018 | Encounter | [facility] | MD Germania BARON | unspecified | | | | [address] [place] | [place], [place] | hyperlipidemia type; | | | | [place], [place] | [address] | Hypertension, | | | | [address] | | unspecified type; Hx | | | | [phone] | | of pulmonary | | | | | | emphysema; Arthritis | | | | | | pain of hand; | | | | | | Arthralgia of right | | | | | | hand; Preop testing | +--------+ + + + + Social History + + + +--------+ + | Tobacco Use | Types | Packs/Day | Years | Date | | | | | Used | | + + + +--------+ + | Former Smoker | Cigarettes | 1 | 50 | 03/08/1952 - | | | | | | 07/24/2016 | + + + +--------+ + + +---+---+---+ | Smokeless Tobacco: | | | | | Never Used | | | | + +---+---+---+ + + +---------+ + | Alcohol Use | Drinks/Week | oz/Week | Comments | + + +---------+ + | No | 0 Standard drinks | 0.0 | pt states she was an | | | or equivalent | | alcoholic for 40 | | [...] + + + +---------+ + + | afatinib | Take 30 mg by mouth | | 0 | | | | (GILOTRIF) 30 mg | every morning | | | | | | tablet | (before breakfast). | [...] mg by mouth | | 0 | 05/18/20 | | | (PROTONIX) 40 mg | 2 times daily | | | 16 | | | tablet | (before meals). | | | | | + + + +---------+ + + | predniSONE | take 2 tablets by | | 0 | 03/24/20 | | | (DELTASONE) 5 mg | mouth every morning | | | 16 | | | tablet | | | | | | + + + +---------+ + + | simvastatin | Take 40 mg by mouth | | 0 | | | | (ZOCOR) 40 mg tablet | nightly. | | | | | + + + +---------+ + + | tiotropium | Inhale 18 mcg into | | 0 | | | | (SPIRIVA) 18 mcg | the lungs Daily. | | | | | | inhalation capsule | | | | | | + + + +---------+ + + | | Take 3 mLs by | 360 mL | 3 | 08/05/19 | | | albuterol-ipratropiu | nebulization 4 times | | | 17 | 9 | | m (DUONEB) 2.5-0.5 | daily. CASIE: 12 | | | | | | mg/3 mL | months Dx: J44.9 | | | | | | SOLNIndications: | | | | | | | Chronic obstructive | | | | | | | pulmonary disease, | | | | | | | unspecified COPD | | | | | | | type ([facility]) | | | | | | + + + +---------+ + + | | take 1 tablet by | | 0 | 10/15/19 | | | amoxicillin-clavulan | mouth every 12 hours | | | 18 | 8 | | ate (AUGMENTIN) | for 10 days | | | | | | 875-125 mg per | | | | | | | tablet | | | | | | + + + +---------+ + + | BREO ELLIPTA | Inhale 1 puff into | | 0 | 10/29/19 | | | 100-25 MCG/INH | the lungs Daily. | | | 17 | 9 | | inhaler | | | | | | + + + +---------+ + + | clopidogrel | Take 75 mg by mouth | | 0 | | | | (PLAVIX) 75 mg | Daily. | | | | 9 | | tablet | | | | | | + + + +---------+ + + | cyclobenzaprine | Take 10 mg by mouth. | | 0 | 01/09/20 | | | (FLEXERIL) 10 mg | | | | 16 | 9 | | tablet | | | | | | + + + +---------+ + + | furosemide (LASIX) | Take 20 mg by mouth | | 0 | 10/27/19 | | | 20 mg tablet | Daily. | | | 17 | 9 | + + + +---------+ + + | | Take 1-2 tablets by | 50 | 0 | 10/28/19 | | | HYDROcodone-acetamin | mouth EVERY 4 TO 6 | tablet | | 18 | 8 | | ophen (NORCO) 5-325 | HOURS NEEDED for | | | | | | mg per tablet | Pain. | | | | | + + + +---------+ + + | levothyroxine | Take 125 mcg by | | 0 | 10/05/19 | | | (SYNTHROID, | mouth every morning | | | 16 | 9 | | LEVOTHROID) 125 mcg | (before breakfast). | | | | | | tablet | | | | | | + + + +---------+ + + | magic | Take 5 mLs by mouth | 237 mL | 0 | 11/05/19 | | | mouthwashIndications | every 4 hours as | | | 16 | 8 | | : Mucositis due to | needed for Pain. | | | | | | drugs | (RECIPE = 1:1:1 | | | | | | | mixture of Maalox, | | | | | | | diphenhydrAMINE, | | | | | | | viscous lidocaine) | | | | | + + + +---------+ + + | MORPHINE SULFATE | Take by mouth. PT | | 0 | | | | ER PO | CANNOT REMEMBER DOSE | | | | 8 | + + + +---------+ + + | NARCAN 4 MG/0.1ML | instill 1 spray in 1 | | 0 | 10/09/19 | | | | NOSTRIL if needed | | | 18 | 9 | | | for opioid overdose | | | | | | | may re... (REFER TO | | | | | | | PRESCRIPTION | | | | | | | NOTES). | | | | | + + + +---------+ + + | potassium chloride | Take 20 mEq by mouth | | 0 | 10/20/19 | | | (K-DUR) 20 mEq ER | Daily. | | | 18 | 9 | | tablet | | | | | | + + + +---------+ + + | raNITIdine | take 1 tablet by | | 0 | 10/10/19 | 04/29/201 | | (ZANTAC) 300 MG | mouth twice a day | | | 17 | 9 | | tablet | | | | | | + + + +---------+ + + | Respiratory | Use as directed with | 1 each | 0 | 09/07/19 | | | Therapy Supplies | nebulizer | | | 16 | 9 | | (NEBULIZER | medication. Dx: | | | | | | COMPRESSOR) RIZWANA | J43.1 CASIE: 99 months | | | | | + + + +---------+ + + | venlafaxine | take 1 tablet by | | 0 | 09/03/19 | | | (EFFEXOR XR) 75 mg | mouth every morning | | | 17 | 9 | | 24 hr tablet | AT THE SAME TIME | | | | | | | EACH DAY WITH FOOD | | | | | + + + +---------+ + + documented as of this encounter Plan of Treatment +--------+ + + + + | Date | Type | Specialty | Care Team | Description | +--------+ + + + + | 05/30/ | Office | Rheumatology | Taisha Santosh, | | | 2018 | Visit | | [address] [address] | | | | | | [place] | | | | | | [place] [address] | | | | | | [phone] | | | | | | | | +--------+ + + + + | 06/08/ | Office | Physical Medicine | Rocky Santos, | | | 2019 | Visit | and Rehabilitation | MD Nichole Landis | | | | | | [place] | | | | | | [address] | | | | | | | | +--------+ + + + + | 06/16/ | Appointment | Pulmonology | Eveline Jaffe | | 2019 | | | MD Nichole Carter | | | | | | [address] [place] | | | | | | [place] [address] | | | | | | [phone] | | | | | | | | +--------+ + + + + | 06/16/ | Office | Pulmonology | Eveline Jaffe | | | 2019 | Visit | | MD Raul [address] | | | | | | [address] [place] | | | | | | [place] [address] | | | | | | [phone] | | | | | | | | +--------+ + + + + | 08/24/ | Office | Cardiology | Anisha Lopez DO | | | 2019 | Visit | | [address] | | | | | | [place] | | | | | | [address] | | | | | | | | +--------+ + + + + documented as of this encounter Procedures + +--------+ + + + | Procedure Name | Priori | Date/Time | Associated Diagnosis | Comments | | | ty | | | | + +--------+ + + + | XR CHEST PA AND | Routin | 10/22/2017 | Hyperlipidemia, | Results for this | | LATERAL | e | 2:10 PM | unspecified | procedure are in the | | | | PDT | hyperlipidemia type | results section. | | | | | Hypertension, | | | | | | unspecified type Hx | | | | | | of pulmonary | | | | | | emphysema Arthritis | | | | | | pain of hand | | | | | | Arthralgia of right | | | | | | hand Preop testing | | + +--------+ + + + documented in this encounter Results XR Chest PA and Lateral (10/22/2017 2:10 PM PDT) + + | Specimen | + + | | + + + + + | Narrative | Performed At | + + + | CLINICAL INFORMATION: Preop Testing DOS: 10/27/17 ---Pulmonary | [facility] | | Emphysema. COMPARISON: 11/06/2016. FINDINGS: Frontal and | | | lateral views of the chest. Stable positioning of the left chest | | | port. Lungs: Small right pleural effusion. Hyperexpansion of | | | the lungs. No focal airspace consolidation. The left lung is | | | clear. No pneumothorax. Slight interval increased soft tissue | | | density at the right hilum with surrounding spiculation. | | | Heart/mediastinum: Cardiac silhouette is of normal size. Central | | | pulmonary vasculature has a normal appearance. Bones: No acute | | | osseous abnormality appreciated. IMPRESSION - Increased soft | | | tissue prominence at the right hilum in the area of prior radiation | | | therapy. Consider follow-up CT of the chest with contrast for | | | further assessment. Small right pleural effusion. | | | Dictated and Signed by: Alex Huddleston MD Electronically signed: | | | 10/22/2017 3:09 PM | | + + + + + | Procedure Note | + + | Fabián, Rad Results In - 10/22/2017 3:12 PM PDT CLINICAL INFORMATION: Preop Testing | | DOS: 10/27/17 ---Pulmonary Emphysema.COMPARISON: 11/06/2016.FINDINGS: Frontal and lateral | | views of the chest.Stable positioning of the left chest port. Lungs: Small right | | pleural effusion. Hyperexpansion of the lungs. No focalairspace consolidation. The | | left lung is clear. No pneumothorax. Slightinterval increased soft tissue density at | | the right hilum with surroundingspiculation.Heart/mediastinum: Cardiac silhouette is of | | normal size. Central pulmonaryvasculature has a normal appearance.Bones: No acute | | osseous abnormality appreciated.IMPRESSION - Increased soft tissue prominence at the | | right hilum in the area of priorradiation therapy. Consider follow-up CT of the chest | | with contrast for furtherassessment.Small right pleural effusion. Dictated and Signed | | by: Alex Huddleston MD Electronically signed: 10/22/2017 3:09 PM | |interval increased soft tissue density at the right hilum with surrounding | |spiculation. | | | |Heart/mediastinum: Cardiac silhouette is of normal size. Central pulmonary | |vasculature has a normal appearance. | | | |Bones: No acute osseous abnormality appreciated. | | | |IMPRESSION - | |Increased soft tissue prominence at the right hilum in the area of prior | |radiation therapy. Consider follow-up CT of the chest with contrast for further | |assessment. | | | |Small right pleural effusion. | | | | | | | |Dictated and Signed by: Alex Huddleston MD | | Electronically signed: 10/22/2017 3:09 PM | + + + +---------+ + + | Performing | Address | City/State/Zipcode | Phone Number | | Organization | | | | + +---------+ + + | [facility] | | | | + +---------+ + + documented in this encounter Visit Diagnoses + + | Diagnosis | + + | Hyperlipidemia, unspecified hyperlipidemia type | + + | Hypertension, unspecified type | + + | Hx of pulmonary emphysema Personal history of other diseases of respiratory system | + + | Arthritis pain of hand Unspecified arthropathy, hand | + + | Arthralgia of right hand Pain in joint, hand | + + | Preop testing Preoperative examination, unspecified | + + documented in this encounter"
--- OUTSIDE RECORDS SUMMARY | ~2019-05-05 | XMS | Encounter Summary ---
Demographics + + + | Address | [address] | | | [place] [address] | + + + | Home Phone | | + + + | Preferred Language | Unknown | + + + | Marital Status | | + + + | Judaism Affiliation | Unknown | + + + | Race | Unknown | + + + | Ethnic Group | Unknown | + + + Author + + + | Author | [facility] | | | and [place] | + + + | Organization | [facility] | | | and [...] [place] | | | | | [address] | | + + + + + Care Team Providers + +------+ + | Care Skirt Panel Assembler Name | Role | Phone | + +------+ + | Davis Ivan MD | PCP | | + +------+ + Reason for Visit + + + | Reason | Comments | + + + | Follow-up | | + + + Encounter Details +--------+---------+ + + + | Date | Type | Department | Care Team | Description | +--------+---------+ + + + | 08/22/ | Office | [facility] [place] | Offenstein, | COPD (chronic | | 2013 | Visit | PULMONARY [address] | Ayana Looney MD | obstructive | | | | [place], | | pulmonary disease) | | | | [place] [address] | | (Primary Dx); | | | | [phone] | | Squamous cell | | | | | | carcinoma of lung | | | | | | (HCC); Sputum | | | | | | culture positive for | | | | | | Scopulariopsis | | | | | | species; MARCE | | | | | | (obstructive sleep | | | | | | apnea) | +--------+---------+ + + + Social History + + [...] + + + | Blood Pressure | 106/58 | 08/22/2013 3:02 PM | | | | | PDT | | + + + + + | Pulse | 71 | 08/22/2013 3:02 PM | | | | | PDT | | + + + + + | Temperature | - | - | | + + + + + | Respiratory Rate | - | - | | + + + + + | Oxygen Saturation | 98% | 08/22/2013 3:02 PM | | | | | PDT | | + + + + + | Inhaled Oxygen | - | - | | | Concentration | | | | + + + + + | Weight | 72.6 kg (160 lb) | 08/22/2013 3:02 PM | | | | | PDT | | + + + + + | Height | 158.8 cm (5' 2.5") | 08/22/2013 3:02 PM | | | | | PDT | | + + + + + | Body Mass Index | 28.8 | 08/22/2013 3:02 PM | | | | | PDT | | + + + + + documented in this encounter Patient Instructions Patient Instructions Ayana Taylor MD - 08/22/2013 3:45 PM PDT Start on Symbicort 2 puffs twice a day. Rinse mouth after use. Use the albuterol nebulizer only if you feel like you need to, up to every 6 hours. I will order a CPAP machine for you. Make an appointment at [facility] to miner pick the machine and learn how to use it. We will see you back in about 2-3 weeks to see how you are doing on it. You will need to get a download from the machine before your next appointment. Continuous Positive Air Pressure (CPAP) Continuous positive air pressure (CPAP)uses gentle air pressure to hold the airway open. CPAP is often the most effective treatment for sleep apnea and severe snoring. It works very well for many people. But keep in mind that it can take several adjustments before the setu p is right for you. How CPAP Works A small portable pump beside the bed sends air through a hose, which is held over your nose by a mask. Air is gently pushed through your airway. The air pressure nudges sagging tissue s aside. This widens the airway so you can breathe better. CPAP may be combined with other k inds of therapy for sleep apnea. A mask over the nose gently directs air into the throat to keep the airway open. Types of Air Pressure Treatments There are different types of CPAP. Your doctor or CPAP boiler service technician will help you decide whic h type is best for you: Basic CPAPkeeps the pressure constant all night long. A bilevel devicegives out more pressure when you breathe in and less when you breathe out. An autoCPAP deviceautomatically adjusts pressure throughout the night and in response to changes such as body position, sleep stage, and snoring. [phone] Britt[facility], [address] [place] [address], [place] [address]. All rights reserve d. This information is not intended as a substitute for professional medical care. Always fo llow your healthcare professional's instructions. documented in this encounter Progress Notes Ayana Taylor MD - 08/22/2013 3:26 PM PDTFormatting of this note might be differe nt from the original. Pulmonary Follow Up HPI Thea Carmona is a 68 y.o. female patient of Davis Ivna here today for follow up of lung cancer. We had referred her to Dr. Lu at last visit, and she placed a referral to Dr. Banegas and Dawna Mace. They saw Dr. Banegas earlier today, and he is apparently planning to present her at [facility]. She is currently taking prednisone at 10 mg daily. She is on an albuterol nebulizer, which she uses infrequently. She feels like she probably should use it more often as she is out of breath walking to the kitchen. She could walk 1 block up to a block without stopping. She d oes not exercise regularly due to her pain issues. Past Medical History Past Medical History Diagnosis Date COPD (chronic obstructive pulmonary disease) ([facility]) on albuterol Spondylolisthesis of cervical region Spinal stenosis has tried cortisone injections Osteoporosis Depression Pneumonia 2009 hospitalized 5 days Rheumatoid arthritis(714.0) ([facility]) [facility] pred[facility]one [facility]ate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 Squamous cell carcinoma of lung ([facility]) 07/2013 Past Surgical History Past Surgical History Procedure Date Hysterectomy Cholecystectomy Cervical spine surgery 2012 Bladder suspension Shoulder surgery Thumb surgery Shoulder surgery right shoulder Tongue surgery benign per pt Lung biopsy 07/21/13 right lower lobe Social History: History Social History Marital Status: Spouse Name: N/A Number of Children: N/A Years of Education: N/A 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 Social History Main Topics Smoking status: Former Smoker -- 1.0 packs/day for 50 years Types: Cigarettes Quit date: 08/21/2012 Smokeless tobacco: Never Used Comment: using e cigarettes Alcohol Use: No Comment: pt states she was an alcoholic for 40 years but quit in 05/2012 Drug Use: No Comment: marijuana in the remote past Sexually Active: None Other Topics Concern None Social History Narrative [place] With: alone[place] previously lived in: [place]posure t o toxic chemicals: noExposure to asbestos: noExposure to tuberculosis: no Has had a PPD or Q uantiferon before: noHas pets at home: cat and a dog Has ever owned birds: yes, 5 years ago Other animal exposures: noHobbies: used to jaja, crossword puzzles, walking her dog Allergies: No Known Allergies Medications: Outpatient Encounter Prescriptions as of 08/22/2013 Medication Sig Dispense Refill albuterol 2.5 mg/3 mL nebulizer solution Take 2.5 mg by nebulization every 6 hours as n eeded. aspirin 81 MG tablet Take 81 mg by mouth Daily. cholecalciferol (VITAMIN D-3) 1,000 units capsule Take 1,000 Units by mouth Daily. cloNIDine (CATAPRES) 0.1 mg tablet Take 0.1 mg by mouth 2 times daily. clopidogrel (PLAVIX) 75 mg tablet Take 75 mg by mouth Daily. ferrous sulfate (IRON) 28 MG TABS Take 28 mg by mouth Daily. folic acid 1 mg tablet Take 1 mg by mouth Daily. levothyroxine (SYNTHROID) 100 mcg tablet Take 75 mcg by mouth every morning (before deshaun akfast). lisinopril (PRINIVIL, ZESTRIL) 10 mg tablet Take 10 mg by mouth 3 times daily. Magnesium 100 MG CAPS Take by mouth Daily. methotrexate 2.5 mg tablet Take 25 mg by mouth Once a week. omeprazole (PRILOSEC) 20 mg capsule Take 20 mg by mouth Twice daily breakfast/Bedtime. oxyCODONE-acetaminophen (PERCOCET) 10-325 mg per tablet Take 1 tablet by mouth every 3 hours as needed. predniSONE (DELTASONE) 5 mg tablet Take 10 mg by mouth Daily. simvastatin (ZOCOR) 40 mg tablet Take 40 mg by mouth nightly. tiZANidine (ZANAFLEX) 4 mg tablet Take 4 mg by mouth See Admin Instructions. 2 tabs twi ce daily venlafaxine (EFFEXOR) 75 MG tablet Take 37.5 mg by mouth 2 times daily. Facility-Administered Encounter Medications as of 08/22/2013 Medication Dose Route Frequency Provider Last Rate Last Dose [COMPLETED] albuterol 2.5 mg/3 mL nebulizer solution 2.5 mg 2.5 mg Nebulization RT Onc e Adelita Lu MD 2.5 mg at 08/22/13 1317 Objective BP 106/58 | Pulse 71 | Ht 1.588 m (5' 2.5") | Wt 72.576 kg (160 lb) | BMI 28.78 kg/m2 | SpO 2 98% General Appearance: Alert, cooperative, no distress, appears stated age, affect brighter a nd she looks much better today Data: Hct 33.1 Pulmonary function tests were performed prior to clinic today and were reviewed and interpr eted in clinic today. They show moderate obstructive disease prior to inhaled bronchodilato r and mild disease after. She has obstructive disease on lung volume testing and a mildly re duced diffusion capacity. Immunization History Administered Date(s) Administered INFLUENZA, PRESERVATIVE FREE IM 03/22/2013 Pneumococcal (Adult) 03/01/2011 Assessment 1. COPD (chronic obstructive pulmonary disease) - Mild based on PFTs, but with significant bronchodilator response. I would suggest adding an ICS and LABA combination given that she h as significant dyspnea and also already uses oral steroids. We will start Symbicort twice da jana and switch nebulizer to as needed (it is ordered scheduled though does not use this way) . 2. Squamous cell carcinoma of lung (HCC) - Seeing Dr. Lu and Dr. Banegas, with referral maria carmen to Dr. Mace for consideration of surgery. 3. Sputum culture positive for Scopulariopsis species - Unclear what this means, but it is an aggressive fungus in the immunosuppressed population. Clinically no evidence of active pu lmonary disease if the nodule is malignancy, but I would worry with chemotherapy induction t hat this could become invasive. I previously discussed with Dr. Boggs, and he had advised b iopsy, which is where we are at now. I would recommend following, and if she does develop wo rrisome pneumonia, she would need close evaluation and subsequent treatment. 4. MARCE (obstructive sleep apnea)- Mild, but given history warrants treatment. I have ordere d CPAP. Plan 1.Start Symbicort 160mcg 2 puffs twice daily. 2.Change albuterol nebs to as needed. 3.Start auto CPAP 5-9 cm H2O. 4. CPAP download in 2-3 weeks. She was advised to call if new pulmonary symptoms were to develop. Return to clinic in 2-3 weeks, or sooner with concerns. 30 minutes were spent with Ms. Carmona and her with greater than 50% spent in [facility] eli and coordination of care regarding her PFT results, sleep study results. CC: Davis Ivan MD, Courtney Lu MD, Jimmy Banegas DO Portions of this report were transcribed using voice recognition software. Every effort wa s made to ensure accuracy; however, inadvertent computerized private inquiry agent errors may be pre sent. Electronically signed by: Ayana Taylor MD 08/22/2013 15:26 documented in t his encounter Plan of Treatment +--------+ + + + + | Date | Type | Specialty | Care Team | Description | +--------+ + + + + | 05/30/ | Office | Rheumatology | Santosh Sumner, | | | 2018 | Visit | | [address] | | | | | | [facility] | | | | | | [place] [address] | | | | | | [phone] | | | | | | | | +--------+ + + + + | 06/08/ | Office | Physical Medicine | Rocky Santos, | | | 2019 | Visit | and Rehabilitation | MD Varela [address] | | | | | | [place] | | | | | | [address] | | | | | | | | +--------+ + + + + | 06/16/ | Appointment | Pulmonology | Eveline Jaffe | | | 2019 | | | MD Nichole [address] | | | | | | [address] [place] | | | | | | [place] [address] | | | | | | [phone] | | | | | | | | +--------+ + + + + | 06/16/ | Office | Pulmonology | Eveline Jaffe | | | 2019 | Visit | | MD [address]ole [address] | | | | | | [address] [place] | | | | | | [place] [address] | | | | | | [phone] | | | | | | | | +--------+ + + + + | 08/24/ | Office | Cardiology | Anisha Lopez DO | | | 2019 | Visit | | [address] | | | | | | [place] | | | | | | [address] | | | | | | | | +--------+ + + + + documented as of this encounter Visit Diagnoses + + | Diagnosis | + + | COPD (chronic obstructive pulmonary disease) - Primary Chronic airway obstruction, | | not elsewhere classified | + + | Squamous cell carcinoma of lung (HCC) Malignant neoplasm of bronchus and lung, | | unspecified site | + + | Sputum culture positive for Scopulariopsis species Other and unspecified mycoses | + + | MARCE (obstructive sleep apnea) Obstructive sleep apnea (adult) (pediatric) | + + documented in this encounter
--- OUTSIDE RECORDS SUMMARY | ~2019-05-05 | XMS | Encounter Summary ---
Demographics + + + | Address | [address] | | | [place] [address] | + + + | Home Phone | | + + + | Preferred Language | Unknown | + + + | Marital Status | | + + + | Presybeterian Affiliation | Unknown | + + + | Race | Unknown | + + + | Ethnic Group | Unknown | + + + Author + + + | Author | [facility] | | | and [place] | + + + | Organization | [facility] | | | [...] [place] | | | | | [address] | | + + + + + Care Team Providers + +------+ + | Care Database Marketing Specialist Name | Role | Phone | [...] + + | Closed | | | Diagnoses | | Randy, | | | | | | | Giuliano Briones MD | | | | | 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[place], | | | | | hand, | | [place] [address] | | | | | unspecified | | Phone: | | | | | osteoarthrit | | [phone] | | | | | is type | | Fax: | | | | | Osteoarthrit | | [phone] | | | | | is of left | | | | | | | hand, | | | | | | | unspecified | | | | | | | osteoarthrit | | | | | | | is type | | | | | | | [M19.042] | | | | | | | Procedures | | | | | | | CT REPAIR | | | | | | | INTERCARP/CA | | | | | | | RP-METACARP | | | | | | | JT | | | +--------+--------+ + + + + Encounter Details +--------+ + + + + | Date | Type | Department | Care Team | Description | +--------+ + + + + | 03/20/ | Anesthesia | [facility] | Dianna Rankin MD | | | 2015 | Event | [facility] | [address] | | | | | [address] | [place] | | | | | [place] | [address] | | | | | [address] | | | | | | [phone] | | | +--------+ + + + + Anesthesia Record + + + + + | Procedure Name | Responsible | Anesthesia Start | Anesthesia Stop Time | | | Anesthesiologist | Time | | + + + + + | Left 1st Keisha | Dianna Rankin MD | 03/20/15 1229 | 03/20/15 1332 | | Arthroplasty (Left | | | | | Hand) | | | | + + + + + +----+---+ + + | Da | T | Event | Comment | | te | i | | | | | m | | | | | e | | | +----+---+ + + | 10 | 1 | Block Start | | | /2 | 2 | | | | 0/ | 1 | | | | 20 | 7 | | | | 15 | | | | +----+---+ + + | | 1 | AN Block | | | | 2 | End | | | | 2 | | | | | 6 | | | +----+---+ + + | | 1 | An Checkout | Pre-use anesthesia machine/equipment checkout. | | | 2 | | | | | 2 | | | | | 9 | | | +----+---+ + + | | 1 | An Start | Reassessment prior to anesthesia induction/procedure. | | | 2 | | | | | 2 | | | | | 9 | | | +----+---+ + + | | 1 | Antibiotic | | | | 2 | Given | | | | 2 | | | | | 9 | | | +----+---+ + + | | 1 | [place] | | | | 2 | 43-degrees | | | | 4 | | | | | 3 | | | +----+---+ + + | | 1 | | | | | 3 | | | | | 0 | | | | | 4 | | | +----+---+ + + | | 1 | [place] off | | | | 3 | | | | | 3 | | | | | 0 | | | +----+---+ + + | | 1 | Breathing | | | | 3 | Spontaneous | | | | 3 | ly | | | | 0 | | | +----+---+ + + | | 1 | an stop | | | | 3 | data | | | | 3 | | | | | 0 | | | +----+---+ + + | | 1 | An Stop | Patient handed off to recovery nurse. | | | 3 | | | | | 2 | | | +----+---+ + + +------+ | Meds | +------+ + + + | Name | Total | + + + | fentaNYL | 200 mcg | + + + | midazolam | 2 mg | + + + | bupivacaine 0.5%-EPINEPHrine | 10 mL | | 1:200,000 (PF) | | + + + | propofol | 254.1 mg | + + + | ceFAZolin (ANCEF, KEFZOL) 1 g in | 1 g | | sodium chloride 0.9% 50 mL IVPB | | + + + | mepivacaine 2% | 10 mL | + + + | lactated ringers (LR) infusion | 500 mL | + + + + + | Name | + + | N2O Flow Rate (L/Min) | + + | O2 Flow Rate (L/Min) | + + | Insp O2 | + + | Exp SEV | + + | Air Flow Rate (L/Min) | + + + + | No blood administrations on file. | + + +--------+ + + + | Type | Details | Placement | Removal | +--------+ + + + | Read | 07/28/14; 1621; Left:; chest; | 07/28/14 162 by | 08/24/18 1342 by | | only - | 08/24/18 (Completed/Removed by | Primitivo Dubose RN | User Epic | | | Utility); 1342 (Completed/Removed | | | | Incisi | by Utility) | | | | on | | | | +--------+ + + + | Implan | 07/28/14; 1624; other (see | 07/28/14 162 by | 09/04/18 1448 by | | t | comments); topical anesthetic | Primitivo Dubose RN | Chen Jackman RN | | Port/S | spray applied; tolerated well; | | | | sharron | flush only; 09/04/18; 1448 | | | +--------+ + + + | [READ | 03/20/15; 1053; short term use; | 03/20/15 1053 by | 03/20/15 1430 by | | ONLY] | 03/20/15; 1430 | Sheryl Soria RN | Andreina Bucio RN | | | | | | | Periph | | | | | eral | | | | | IV - | | | | | Single | | | | | Lumen | | | | | | | | | +--------+ + + + | Read | 03/20/15; 1325; Right:; arm; | 03/20/15 1325 by | 08/24/18 1342 by | | only - | 08/24/18 (Completed/Removed by | Cece Bhatti RN | User Epic | | | Utility); 1342 (Completed/Removed | | | | Incisi | by Utility) | | | | on | | | | +--------+ + + + documented in this encounter Social History + + + +--------+ + [...] | 2018 | Visit | | [address] | | | | | | [facility] | | | | | | [place] [address] | | | | | | [phone] | | | | | | | | +--------+ + + + + | 06/08/ | Office | Physical Medicine | Rocky Santos, | | | 2019 | Visit | and Rehabilitation | MD Nichole [address] | | | | | | [place] | | | | | | [address] | | | | | | | | +--------+ + + + + | 06/16/ | Appointment | Pulmonology | Eveline Jaffe | | 2019 | | | MD Nichole Carter | | | | | | [address] [place] | | | | | | [place] [address] | | | | | | [phone] | | | | | | | | +--------+ + + + + | 06/16/ | Office | Pulmonology | Eveline Jaffe | | | 2019 | Visit | | MD Nichole Carter | | | | | | [address] [place] | | | | | | [place] [address] | | | | | | [phone] | | | | | | | | +--------+ + + + + | 08/24/ | Office | Cardiology | Anisha Lopez DO | | | 2020 | Visit | | [address] | | | | | | [place] | | | | | | [address] | | | | | | | | +--------+ + + + + documented as of this encounter Procedures + +--------+ + + + | Procedure Name | Priori | Date/Time | Associated Diagnosis | Comments | | | ty | | | | + +--------+ + + + | ANESTHESIA BLOCK | Routin | 03/20/2015 | | Results for this | | | e | 12:57 PM | | procedure are in the | | | | PDT | | results section. | + +--------+ + + + documented in this encounter Results ANESTHESIA BLOCK (03/20/2015 12:57 PM PDT) + + + | Narrative | Performed At | + + + | Dianna Rankin MD 03/20/2015 12:57 Procedure Note Axillary | | | Procedure: Axillary Block Left, Approach: Lateral | | | Technique used to guide the needle to the proximity of the nerve, | | | appropriate space, or fascial plane: Ultrasound Guided. Single-Shot, | | | Incremental Injection Incremental Injection Volume: 5. Ultrasound | | | image(s) saved in patient's chart. Pre-procedure Events: Patient | | | Identified, Pre-op Evaluation Completed, Airway Assessed, Risks and | | | Benefits Discussed, Procedure Consent Obtained and Timeout | | | Performed. Patient Positioning: Supine Prep: ChloraPrep used. Skin | | | Local Anesthetic: Lidocaine 1% Needle: 22 G Stimuplex (3.5 in). | | | Ease: Easy Attempts: 1 Note: Negative Blood | | | Aspirated, CSF Return and Paresthesia. Pt met in pre-op area. | | | Chart reviewed and the risks, benefits and options of anesthesia | | | were discussed and questions were answered. Pt agreed to proceed | | | with a axillary nerve block (left) with sedation as the primary | | | anesthetic technique. O2 sat monitor placed, iv sedation given, | | | left axilla prepped and US used to identify the left brachial plexus | | | then 1 percent lidocaine was injected sub-cut. Followed by | | | bhanu-neural injection of 10 ml of .5 percent bupivacaine with 1:200k | | | epi with 10 ml 2 percent mepivacine with frequent negative | | | aspiration. The patient tolerated the procedure well without | | | apparent complication. Performed by: Performing Provider: | | | DIANNA RANKIN Director Of Materials: Gurmeet Sequeira MD, José Miguel Draper RN | | | Electronically Signed by: Dianna Rankin MD ESig date/time: | | | 03/20/2015 12:51 | | + + + documented in this encounter Visit Diagnoses Not on filedocumented in this encounter Administered Medications + +--------+ +--------+------+------+ | Medication Order | MAR | Action | Dose | Rate | Site | | | Action | Date | | | | + +--------+ +--------+------+------+ | bupivacaine 0.5%-EPINEPHrine | Given | 03/20/20 | 10 mLs | | | | 1:200,000 (PF) injection | | 15 12:25 | | | | | EPIDURAL, PRN, Other, Starting | | PM PDT | | | | | 03/20/15 at 1225, Anesthesia | | | | | | | Intra-op | | | | | | + +--------+ +--------+------+------+ +---+---+ | | | +---+---+ + +-------+ +-----+---+---+ | ceFAZolin (ANCEF, KEFZOL) 1 g | Given | 03/20/20 | 1 g | | | | in sodium chloride 0.9% 50 mL | | 15 12:28 | | | | | IVPB 1 g, Intravenous, | | PM PDT | | | | | Administer over 30 Minutes, Prior | | | | | | | to Incision, Starting Tue | | | | | | | 03/20/15 at 1032, For 1 dose, | | | | | | | administer within 1 hour of | | | | | | | incision Activate system and mix | | | | | | | before use., Pre-op | | | | | | + +-------+ +-----+---+---+ +---+---+ | | | +---+---+ + +-------+ +---------+---+---+ | fentaNYL injection | Given | 03/20/20 | 100 mcg | | | | Intravenous, PRN, Pain, Starting | | 15 12:42 | | | | | 03/20/15 at 1218, Anesthesia | | PM PDT | | | | | Intra-op | | | | | | + +-------+ +---------+---+---+ +-------+ +---------+---+---+ | Given | 10/20/20 | 100 mcg | | | | | 15 12:18 | | | | | | PM PDT | | | | +-------+ +---------+---+---+ +---+---+ | | | +---+---+ + +---------+ +---+---+---+ | lactated ringers (LR) infusion | New Bag | 03/20/20 | | | | | at 10-100 mL/hr, Intravenous, | | 15 12:16 | | | | | CONTINUOUS, Starting 03/20/15 | | PM PDT | | | | | at 1100, TKO., Pre-op | | | | | | + +---------+ +---+---+---+ +---------+ +---------+-------+--------+ | New Bag | 10/20/20 | 100 mLs | 100 | Right | | | 15 10:59 | | mL/hr | Arm | | | AM PDT | | | | +---------+ +---------+-------+--------+ +---+---+ | | | +---+---+ + +-------+ +--------+---+---+ | mepivacaine (PF) (POLOCAINE) 2% | Given | 03/20/20 | 10 mLs | | | | injection PRN, Starting Tue | | 15 12:25 | | | | | 03/20/15 at 1225, Anesthesia | | PM PDT | | | | | Intra-op | | | | | | + +-------+ +--------+---+---+ +---+---+ | | | +---+---+ + +-------+ +------+---+---+ | midazolam (VERSED) 1 mg/mL | Given | 03/20/20 | 2 mg | | | | injection Intravenous, PRN, | | 15 12:18 | | | | | Anxiety, Starting 03/20/15 at | | PM PDT | | | | | 1218, Anesthesia Intra-op | | | | | | + +-------+ +------+---+---+ +---+---+ | | | +---+---+ + + + + +-------+---+ | propofol (DIPRIVAN) injection | Rate/Dos | 03/20/20 | 25 | 10.9 | | | Intravenous, CONTINUOUS PRN, | e Change | 15 1:18 | mcg/kg/m | mL/hr | | | Starting 03/20/15 at 1244, | | PM PDT | in | | | | Anesthesia Intra-op | | | | | | + + + + +-------+---+ +---------+ + +-------+---+ | New Bag | 03/20/20 | 100 | 43.6 | | | | 15 12:44 | mcg/kg/m | mL/hr | | | | PM PDT | in | | | +---------+ + +-------+---+ +---+---+ | | | +---+---+ documented in this encounter"
--- OUTSIDE RECORDS SUMMARY | ~2019-05-05 | XMS | Encounter Summary ---
Demographics + + + | Address | [address] | | | [place] [address] | + + + | Home Phone | | + + + | Preferred Language | Unknown | + + + | Marital Status | | + + + | Pentecostal Affiliation | Unknown | + + + | Race | Unknown | + + + | Ethnic Group | Unknown | + + + Author + + + | Author | [facility] | | | and [place] | + + + | Organization | [facility] | | | [...] [place] | | | | | [address] | | + + + + + Care Team Providers + +------+ + | Care Electronics Repair Technician Name | Role | Phone | + +------+ + | Davis Ivan MD | PCP | | + +------+ + Reason for Visit + + + | Reason | Comments | + + + | Psychosocial Support | | + + + Encounter Details +--------+ + + + + | Date | Type | Department | Care Team | Description | +--------+ + + + + | 09/15/ | Documentati | [facility] | Liseth Hodge, | Psychosocial Support | | 2014 | on | [facility] | [facility] | | | | | [facility] [address] | | | | | | [address] | | | | | | [place] [address] | | | | | | [phone] | | | +--------+ + + + [...] documented as of this encounter Progress Notes Ivone Hodgelamin Vaughan, [facility] - 09/15/2014 4:03 PM PDTOncology Thermal Molder met with Thea to adm inister the NCCN Distress Thermometer and review it with her. Thea is being treated for dipti ng cancer. She was first diagnosed in March of 2013. She lives in [place], is and has a significant other. She is on Medicaid and Medicare. She [facility] - providing two care givers three days per week. Thea presents as alert and oriented X4 and reports she has a hi story of depression. She takes effexor to manage symptoms. There is no evidence of thought d isorder or other mental illness. Thea reports level of distress is 7 on a 10 point scale. She attributes her distress to her fear, sadness, and worry regarding her diagnosis, treatm ent, and prognosis. She also reports stress in family dynamics, especially her concern for h er son who has G.I. Problems. She has pain caused by rheumatoid arthritis ane she has wakefu l sleep. She has loss of appetite, fatigue, and complains of difficulty concentrating. She does report she has an adequate support system, good coping skills and strong maximilian. This social service manager allowed for expression of feeling and provided supportive counseling and infor mation regarding the emotional aspects of a cancer diagnosis and treatment and offered liter ature on her diagnosis. Also provided her with a cookbook for people going through cancer tr eatment and referred her to the [employer] Look Good Feel Better program. She also expressed an interest in a wig and this social service manager apprised the [facility]. This social wo rker encouraged Thea to continue to access individual support and apprised her of the [facility] r Survivors Support Group. This social service manager is available to provide emotional support and additional community resource information and referral as needed. Patient is aware of supp ort services and how to access them. GRAB JACK WORKER will follow up at appointments and by phone as verona merida. documented in this encounter Plan of Treatment +--------+ + + + + | Date | Type | Specialty | Care Team | Description | +--------+ + + + + | 05/30/ | Office | Rheumatology | Santosh Sumner, | | | 2018 | Visit | | [address] | | | | | | [facility] | | | | | | [place] [address] | | | | | | [phone] | | | | | | | | +--------+ + + + + | 06/08/ | Office | Physical Medicine | Rocky Santos, | | | 2019 | Visit | and Rehabilitation | MD [address] | | | | | | [place] | | | | | | [id number] | | | | | | | | +--------+ + + + + | 06/16/ | Appointment | Pulmonology | Eveline Jaffe | | | 2019 | | | MD Raul [address] | | | | | | [address] [place] | | | | | | [place] [address] | | | | | | [phone] | | | | | | | | +--------+ + + + + | 06/16/ | Office | Pulmonology | Eveline Jaffe | | | 2019 | Visit | | MD Nichole Carter [address] | | | | | | [address] [place] | | | | | | [place] [address] | | | | | | [phone] | | | | | | | | +--------+ + + + + | 08/24/ | Office | Cardiology | Anisha Lopez DO | | | 2019 | Visit | | [address] | | | | | | [place] | | | | | | [address] | | | | | | | | +--------+ + + + + documented as of this encounter Visit Diagnoses Not on filedocumented in this encounter"
--- OUTSIDE RECORDS SUMMARY | ~2019-05-05 | XMS | Encounter Summary ---
Demographics + + + | Address | [address] | | | [place] [address] | + + + | Home Phone | | + + + | Preferred Language | Unknown | + + + | Marital Status | | + + + | Buddhism Affiliation | Unknown | + + + | Race | Unknown | + + + | Ethnic Group | Unknown | + + + Author + + + | Author | [facility] | | | and [place] | + + + | Organization | [facility] | | | [...] [place] | | | | | [address] | | + + + + + Care Team Providers + +------+ + | Care Admitting Counselor Name | Role | Phone | + +------+ + | Davis Ivan MD | PCP | | + +------+ + Reason for Visit + + + | Reason | Comments | + + + | Surgery Appointment | Reschedule Surgery/Clearance | + + + Encounter Details +--------+ + + + + | Date | Type | Department | Care Team | Description | +--------+ + + + + | 11/01/ | Telephone | [facility] | Giuliano Padilla, | Surgery Appointment | | 2019 | | ORTHOPEDIC SURGERY | MD Germania BARON | (Reschedule | | | | [address] [place] [address] | [place] | Surgery/Clearance) | | | | [place] | [id number] | | | | | [address] | | | | | | [phone] | | | +--------+ + + + [...] | 2018 | Visit | | [address] | | | | | | [facility] | | | | | | [place] [address] | | | | | | [phone] | | | | | | | | +--------+ + + + + | 06/08/ | Office | Physical Medicine | Rocky Santos, | | | 2019 | Visit | and Rehabilitation | MD Nichole [address] | | | | | | [place] | | | | | | [address] | | | | | | | | +--------+ + + + + | 06/16/ | Appointment | Pulmonology | Eveline Jaffe | | | 2019 | | | MD [address] | | | | | | [address] [place] | | | | | | [place] [address] | | | | | | [phone] | | | | | | | | +--------+ + + + + | 06/16/ | Office | Pulmonology | Eveline Jaffe | | | 2019 | Visit | | MD [address]ole [address] | | | | | | [address] [place] | | | | | | [place] [address] | | | | | | [phone] | | | | | | | | +--------+ + + + + | 08/24/ | Office | Cardiology | Anisha Lopez DO | | | 2019 | Visit | | [address] | | | | | | [place] | | | | | | [address] | | | | | | | | +--------+ + + + + documented as of this encounter Visit Diagnoses Not on filedocumented in this encounter"
--- OUTSIDE RECORDS SUMMARY | ~2019-05-05 | XMS | Encounter Summary ---
Demographics + + + | Address | [address] | | | [place] [address] | + + + | Home Phone | | + + + | Preferred Language | Unknown | + + + | Marital Status | | + + + | Jewish Affiliation | Unknown | + + + [...] [place] | | | | | [address] | | + + + + + Care Team Providers + +------+ + | Care Academic Services Coordinator Name | Role | Phone | + +------+ + | Caitlin Chino MD | PCP | | + +------+ + Encounter Details +--------+ + + + + | Date | Type | Department | Care Team | Description | +--------+ + + + + | 10/28/ | Orders Only | [facility] | Santosh Sumner, | | | 2019 | | [facility] | [address] | | | | [place], [place] | [facility] | | | | | [address] | [place] [address] | | | | | [phone] | [phone] | | | | | | | [...] 2018 | Visit | | [address] | | | | | | [place] | | | | | | [place] [address] | | | | | | [phone] | | | | | | | | +--------+ + + + + | 06/08/ | Office | Physical Medicine | Rocky Santos, | | | 2019 | Visit | and Rehabilitation | MD Nichole Landis | | | | | | [place] | | | | | | [id number] | | | | | | | | +--------+ + + + + | 06/16/ | Appointment | Pulmonology | Eveline Jaffe | | 2019 | | | MD Nichole [address] | | | | | | [address] [place] | | | | | | [place] [address] | | | | | | [phone] | | | | | | | | +--------+ + + + + | 06/16/ | Office | Pulmonology | Eveline Jaffe | | | 2019 | Visit | | MD Raul [address] | | | | | | [address] [place] | | | | | | [place] [address] | | | | | | [phone] | | | | | | | | +--------+ + + + + | 08/24/ | Office | Cardiology | Anisha Lopez DO | | | 2019 | Visit | | [address] | | | | | | [place] | | | | | | [address] | | | | | | | | +--------+ + + + + documented as of this encounter Procedures + +--------+ + + + | Procedure Name | Priori | Date/Time | Associated Diagnosis | Comments | | | ty | | | | + +--------+ + + + | EXTERNAL LAB: CBC | Routin | 10/28/2018 | | Results for this | | | e | 1:20 PM | | procedure are in the | | | | PDT | | results section. | + +--------+ + + + | SEDIMENTATION RATE, | Routin | 10/28/2018 | | Results for this | | AUTOMATED | e | 1:20 PM | | procedure are in the | | | | PDT | | results section. | + +--------+ + + + | C-REACTIVE PROTEIN | Routin | 10/28/2018 | | Results for this | | | e | 1:20 PM | | procedure are in the | | | | PDT | | results section. | + +--------+ + + + | COMPREHENSIVE | Routin | 10/28/2018 | | Results for this | | METABOLIC PANEL | e | 1:20 PM | | procedure are in the | | | | PDT | | results section. | + +--------+ + + + documented in this encounter Results Sedimentation rate, automated (10/28/2018 1:20 PM PDT) + +--------+ + + + | Component | Value | Ref Range | Performed | Pathologist | | | | | At | Signature | + +--------+ + + + | Sed Rate | 75 (H) | 0 - 30 mm/h | EXTERNAL | | | | | | LAB | | + +--------+ + + + + + | Specimen | + + | Blood specimen | | (specimen) | + + + +---------+ + + | Performing | Address | City/State/Zipcode | Phone Number | | Organization | | | | + +---------+ + + | EXTERNAL LAB | | | | + +---------+ + + External Lab: CBC (10/28/2018 1:20 PM PDT) + + + + + + | Component | Value | Ref Range | Performed | Pathologist | | | | | At | Signature | + + + + + + | WBC | 12.90 (H) | 3.80 - 11.00 | EXTERNAL | | | | | 10*3/uL | LAB | | + + + + + + | RED CELL | 4.25 | 3.70 - 5.10 | EXTERNAL | | | COUNT | | 10*6/uL | LAB | | + + + + + + | Hgb | 12.5 | 11.3 - 15.5 | EXTERNAL | | | | | g/dL | LAB | | + + + + + + | Hematocrit, | 39.1 | 34.0 - 46.0 % | EXTERNAL | | | POC | | | LAB | | + + + + + + | MCV | 91.9 | 80.0 - 100.0 fL | EXTERNAL | | | | | | LAB | | + + + + + + | MCH | 29.5 | 27.0 - 34.0 pg | EXTERNAL | | | | | | LAB | | + + + + + + | MCHC | 32.1 | 32.0 - 35.5 | EXTERNAL | | | | | g/dL | LAB | | + + + + + + | RDW-CV | 62.1 (H) | 37 - 53 fL | EXTERNAL | | | | | | LAB | | + + + + + + | Platelet | 339 | 150 - 400 | EXTERNAL | | | Count | | 10*3/uL | LAB | | | Plasma | | | | | + + + + + + | MPV | 8.0 | fL | EXTERNAL | | | | | | LAB | | + + + + + + | Differentia | MANUAL | | EXTERNAL | | | l Type | | | LAB | | + + + + + + | Segmented | 84 | % | EXTERNAL | | | Neutrophils | | | LAB | | | Manual | | | | | + + + + + + | Lymphocytes | 11 | % | EXTERNAL | | | Manual | | | LAB | | + + + + + + | Monocytes | 5 | % | EXTERNAL | | | Manual | | | LAB | | + + + + + + | Absolute | 10.83 (H) | 1.90 - 7.40 | EXTERNAL | | | Neutrophils | | 10*3/uL | LAB | | + + + + + + | Absolute | 1.42 | 1.00 - 3.90 | EXTERNAL | | | Lymphocytes | | 10*3/uL | LAB | | + + + + + + | Absolute | 0.65 | 0.00 - 0.80 | EXTERNAL | | | Monocytes | | 10*3/uL | LAB | | + + + + + + | RBC | 2+ | | EXTERNAL | | | Morphology | | | LAB | | + + + + + + | RBC | ANISO | | EXTERNAL | | | Morphology | | | LAB | | + + + + + + | RBC | NORMAL PLT MORPH | | EXTERNAL | | | Morphology | | | LAB | | + + + + + + + + | Specimen | + + | Blood specimen | | (specimen) | + + + +---------+ + + | Performing | Address | City/State/Zipcode | Phone Number | | Organization | | | | + +---------+ + + | EXTERNAL LAB | | | | + +---------+ + + C-Reactive Protein (10/28/2018 1:20 PM PDT) + +---------+ + + + | Component | Value | Ref Range | Performed | Pathologist | | | | | At | Signature | + +---------+ + + + | CRP | 3.1 (H) | mg/dL | EXTERNAL | | | | | | LAB | | + +---------+ + + + + + | Specimen | + + | Blood specimen | | (specimen) | + + + +---------+ + + | Performing | Address | City/State/Zipcode | Phone Number | | Organization | | | | + +---------+ + + | EXTERNAL LAB | | | | + +---------+ + + Comprehensive Metabolic Panel (10/28/2018 1:20 PM PDT) + + + + + + | Component | Value | Ref Range | Performed | Pathologist | | | | | At | Signature | + + + + + + | Na | 141 | 135 - 145 | EXTERNAL | | | | | mmol/L | LAB | | + + + + + + | K | 3.7Comment: SPECIMEN | 3.5 - 4.9 | EXTERNAL | | | | SLIGHTLY HEMOLYZED | mmol/L | LAB | | + + + + + + | Cl | 105 | 99 - 109 mmol/L | EXTERNAL | | | | | | LAB | | + + + + + + | CO2 | 29 | 23 - 32 mmol/L | EXTERNAL | | | | | | LAB | | + + + + + + | Anion Gap | 11 | 5 - 20 mmol/L | EXTERNAL | | | | | | LAB | | + + + + + + | Glucose, | 101 (H)Comment: SPECIMEN | 65 - 99 mg/dL | EXTERNAL | | | Fasting | SLIGHTLY HEMOLYZED | | LAB | | + + + + + + | BUN | 17 | 8 - 25 mg/dL | EXTERNAL | | | | | | LAB | | + + + + + + | Creatinine | 1.0Comment: SPECIMEN | 0.50 - 1.00 | EXTERNAL | | | | SLIGHTLY HEMOLYZED | mg/dL | LAB | | + + + + + + | BUN/Creatin | 17 | | EXTERNAL | | | ine Ratio | | | LAB | | + + + + + + | Calcium | 9.2 | 8.5 - 10.5 | EXTERNAL | | | | | mg/dL | LAB | | + + + + + + | Protein, | 6.6 | 6.3 - 8.2 g/dL | EXTERNAL | | | Total | | | LAB | | + + + + + + | Albumin | 3.2 (L) | 3.3 - 4.8 g/dL | EXTERNAL | | | | | | LAB | | + + + + + + | Globulin | 3.4 | 1.3 - 4.9 g/dL | EXTERNAL | | | | | | LAB | | + + + + + + | A/G Ratio | 0.9 (L) | 1.0 - 2.4 | EXTERNAL | | | | | | LAB | | + + + + + + | Bilirubin | 0.4Comment: SPECIMEN | 0.1 - 1.5 mg/dL | EXTERNAL | | | Total | SLIGHTLY HEMOLYZED | | LAB | | + + + + + + | ALP, | 66 | 35 - 115 U/L | EXTERNAL | | | External | | | LAB | | + + + + + + | AST | 11Comment: SPECIMEN | 10 - 45 U/L | EXTERNAL | | | | SLIGHTLY HEMOLYZED | | LAB | | + + + + + + | ALT | 14Comment: SPECIMEN | 10 - 65 U/L | EXTERNAL | | | | SLIGHTLY HEMOLYZED | | LAB | | + + + + + + | Estimated | 54 (L)Comment: GFR <60: | mL/min/1.73_m2 | EXTERNAL | | | GFR | CHRONIC KIDNEY DISEASE, | | LAB | | | | IF FOUND OVER A 3 MONTH | | | | | | PERIOD. GFR <15: KIDNEY | | | | | | FAILURE. FOR | | | | | | AMERICANS, MULTIPLY THE | | | | | | CALCULATED GFR BY 1.210. | | | | | | This eGFR is calculated | | | | | | using the MDRD IDMS | | | | | | traceable equation. | | | | + + + [...]
--- OUTSIDE RECORDS SUMMARY | ~2019-05-05 | XMS | Encounter Summary ---
Demographics + + + | Address | [address] | | | [place] [address] | + + + | Home Phone | | + + + | Preferred Language | Unknown | + + + | Marital Status | | + + + | Mu-Ism Affiliation | Unknown | + + + | Race | Unknown | + + + | Ethnic Group | Unknown | + + + Author + + + | Author | [facility] | | | and [place] | + + + | Organization | [facility] | | | [...] [place] | | | | | [address] | | + + + + + Care Team Providers + +------+ + | Care Glaucoma Specialist Name | Role | Phone | + +------+ + | Davis Ivan MD | PCP | | + +------+ + Reason for Visit + + + | Reason | Comments | + + + | COPD | 6 mo follow up | + + + | Bronchitis | | + + + Encounter Details +--------+---------+ + + + | Date | Type | Department | Care Team | Description | +--------+---------+ + + + | 11/06/ | Office | [facility] | Gurmeet Vargas | Centrilobular | | 2017 | Visit | PULMONARY [address] | MD [address] | emphysema (HCC) | | | | [place], | [place] | (Primary Dx); | | | | [place] [address] | [place] [address] | Metastatic primary | | | | [phone] | [phone] | lung cancer, | | | | | | unspecified | | | | | | laterality (HCC) | +--------+---------+ + + + Social History [...] | | + +---+---+---+ + + | Tobacco Cessation: Counseling Given: No | + + + + +---------+ + [...] + + + | Blood Pressure | 120/68 | 11/06/2016 2:37 PM | | | | | PDT | | + + + + + | Pulse | 72 | 11/06/2016 2:37 PM | | | | | PDT | | + + + + + | Temperature | 37.1 C (98.7 F) | 11/06/2016 2:37 PM | | | | | PDT | | + + + + + | Respiratory Rate | - | - | | + + + + + | Oxygen Saturation | 98% | 11/06/2016 2:37 PM | | | | | PDT | | + + + + + | Inhaled Oxygen | - | - | | | Concentration | | | | + + + + + | Weight | 74.4 kg (164 lb 1.6 | 11/06/2016 2:37 PM | | | | oz) | PDT | | + + + + + | Height | 157.5 cm (5' 2") | 11/06/2016 2:37 PM | | | | | PDT | | + + + + + | Body Mass Index | 30.01 | 11/06/2016 2:37 PM | | | | | PDT | | + + + + + documented in this encounter Progress Notes Gurmeet Vargas MD - 11/06/2016 2:40 PM [id number] ex-smoker with metastatic lung cancer in remission on daily afatinib HPI: She had a right lung mass that was resected and then recurrent. She has been on immun otherapy without losing weight and feeling stable. She is followed by Dr. Park every 2 months. For her years of cigarette smoking and emphysema, she uses Spiriva in the mornin g, Breo twice a day, and nebulized DuoNeb 3 or 4 times a day. But she ran out and has been borrowing it. She also tells me that her surgeon in [place] once to fix a pelvic hernia and seeks clear ance to do it. She tells me it is not disabling, she has not worn any article of clothing o r brace to help manage it. Physical exam: Weight 164, blood pressure 120/68, pulse 72 and regular, respirations 18 and quiet, temperature 98.7, oxygen saturation 98% on room air. HEENT: Pupils are reactive, co njunctiva are pink, the oropharynx is normal with no thrush. The neck feels normal. I don' t feel any supraclavicular nodes. The lung arguello are completely clear with no wheeze and g ood airflow at the mouth. Neck rhythm is regular with no murmur or gallop. Her abdomen is soft and lower abdomen is nontender. Her left ankle has a slight bit of swelling; the right does not. Laboratory evaluation: I obtained PA and lateral chest x-ray. Her film looks no worse than October 29, 2015. She has perhaps a small right effusion or has evolved pleural thickening to appear that way, but the right hilum and the lung arguello do not show any evidence for metast asis. Impression and plan: 1. COPD: Stay on current medications. I wrote her a prescription for ipratropium albute rol rest peels, 14 times a day, dispense #120, with 11 refills. She can return next year or sooner if there is a problem. We spent 15 minutes, at least half in counseling. [employer] Word processing was used, and I a pologize for any uncorrected mistakes. Gurmeet Vargas M.D. Pulmonary critical documented i n this encounter Plan of Treatment +--------+ + + + + | Date | Type | Specialty | Care Team | Description | +--------+ + + + + | 05/30/ | Office | Rheumatology | Santosh Sumner, | | | 2019 | Visit | | PA-C [address] | | | | | | [place] | | | | | | [place] [address] | | | | | | [phone] | | | | | | | | +--------+ + + + + | 06/08/ | Office | Physical Medicine | Rocky Santos, | | | 2019 | Visit | and Rehabilitation | MD [address] | | | | | | [place] | | | | | | [address] | | | | | | | | +--------+ + + + + | 06/16/ | Appointment | Pulmonology | Eveline Jaffe | | 2019 | | | MD [address] | | | | | | [place] | | | | | | [place] [address] | | | | | | [phone] | | | | | | | | +--------+ + + + + | 06/16/ | Office | Pulmonology | Eveline Jaffe | | | 2019 | Visit | | MD Raul [address] | | | | | | [place] | | | | | | [place] [address] | | | | | | [phone] | | | | | | | | +--------+ + + + + | 08/24/ | Office | Cardiology | Anisha Lopez DO | | | 2019 | Visit | | [address] | | | | | | [place] | | | | | | [address] | | | | | | | | +--------+ + + + + documented as of this encounter Visit Diagnoses + + | Diagnosis | + + | Centrilobular emphysema (HCC) - Primary | + + | Metastatic primary lung cancer, unspecified laterality (HCC) | + + documented in this encounter
--- OUTSIDE RECORDS SUMMARY | ~2019-05-05 | XMS | Encounter Summary ---
Demographics + + + | Address | [address] | | | [place] [address] | + + + | Home Phone | | + + + | Preferred Language | Unknown | + + + | Marital Status | | + + + | Orthodox Affiliation | Unknown | + + + | Race | Unknown | + + + | Ethnic Group | Unknown | + + + Author + + + | Author | [facility] | | | and [place] | + + + | Organization | [facility] | | | [...] [place] | | | | | [address] | | + + + + + Care Team Providers + +------+ + | Care Auto Air Conditioning Apprentice Name | Role | Phone | + [...] | +--------+ + + + + | 08/07/ | Hospital | [facility] | Adelita Lu MD | 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 | | | | INFUSION [address] | [place], [place] | lung, unspecified | | | | [place], | [address] | laterality (HCC); | | | | [place] [address] | [phone] | Pulmonary nodules | | | | [phone] | | | +--------+ + + + [...] + + + | Blood Pressure | - | - | | + + + + + | Pulse | - | - | | + + + + + | Temperature | - | - | | + + + + + | Respiratory Rate | - | - | | + + + + + | Oxygen Saturation | - | - | | + + + + + | Inhaled Oxygen | - | - | | | Concentration | | | | + + + + + | Weight | 68.3 kg (150 lb 9.2 | 08/07/2014 10:56 AM | | | | oz) | PDT | | + + + + + | Height | 157.5 cm (5' 2.01") | 08/07/2014 10:56 AM | | | | | PDT | | + + + + + | Body Mass Index | 27.53 | 08/07/2014 10:56 AM | | | | | PDT [...] | | Take 1-2 tablets by | 20 | 0 | 07/28/19 | | | HYDROcodone-acetamin | mouth every 4 hours | tablet | | 15 | 5 | | ophen (NORCO) 5-325 | as needed for Pain. | | | | | | mg per tablet | | | | | | + + + +---------+ + + | HYDROmorphone | Take 8 mg by mouth | | 0 | | | | (DILAUDID) 4 MG | every 6 hours as | | | | 6 | | tablet | needed. | | | | | + + + +---------+ + + | levofloxacin | Take 1 tablet by | 7 | 0 | 08/04/19 | | | (LEVAQUIN) 500 mg | mouth Daily for 7 | tablet | | 15 | 5 | | tabletIndications: | days. | | | | | | Infection | | | | | | + [...] tablet by | 30 | 3 | 03/10/20 | | | (ZOFRAN) 8 MG | [...] documented as of this encounter Progress Notes Liseth Frausto RN - 08/07/2014 1:39 PM PDTPatient discharged in satisfactory condition . Discharged with wheelchair and cane. With radiation oncology. To home. Verified that patient has antinausea medications at home. Future appointments and After Visit Summary (AVS) provided. documented in this encounter Plan of Treatment +--------+ + + + + | Date | Type | Specialty | Care Team | Description | +--------+ + + + + | 05/30/ | Office | Rheumatology | Santosh Sumner, | | | 2018 | Visit | | [address] | | | | | | [facility] | | | | | | [place] [address] | | | | | | [phone] | | | | | | | | +--------+ + + + + | 06/08/ | Office | Physical Medicine | Rocky Santos, | | | 2019 | Visit | and Rehabilitation | [address] | | | | | | [place] | | | | | | [address] | | | | | | | | +--------+ + + + + | 06/16/ | Appointment | Pulmonology | Eveline Jaffe | | | 2019 | | | MD [address] | | | | | | [address] [place] | | | | | | [place] [address] | | | | | | [phone] | | | | | | | | +--------+ + + + + | 06/16/ | Office | Pulmonology | Eveline Jaffe | | | 2019 | Visit | | MD [address] | | | | | | [address] [place] | | | | | | [place] [address] | | | | | | [phone] | | | | | | | | +--------+ + + + + | 08/24/ | Office | Cardiology | Anisha Lopez DO | | | 2019 | Visit | | [address] | | | | | | [place] | | | | | | [address] | | | | | | | | +--------+ + + + + documented as of this encounter Procedures + +--------+ + + + | Procedure Name | Priori | Date/Time | Associated Diagnosis | Comments | | | ty | | | | + +--------+ + + + | CBC WITH | STAT | 08/07/2014 | Recurrent squamous | Results for this | | DIFFERENTIAL | | 9:16 AM | cell carcinoma of | procedure are in the | | | | PDT | lung, unspecified | results section. | | | | | laterality (HCC) | | | | | | Pulmonary nodules | | + +--------+ + + + | COMPREHENSIVE | STAT | 08/07/2014 | Recurrent squamous | Results for this | | METABOLIC PANEL | | 9:16 AM | cell carcinoma of | procedure are in the | | | | PDT | lung, unspecified | results section. | | | | | laterality (HCC) | | | | | | Pulmonary nodules | | + +--------+ + + + documented in this encounter Results CBC with Differential (08/07/2014 9:16 AM PDT) + + + + + + | Component | Value | Ref Range | Performed | Pathologist | | | | | At | Signature | + + + + + + | WBC | 7.5 | 4.0 - 11.0 K/uL | [facility] | | | | | [facility] | [facility] | | [facility] - | | | | | | [facility] | | + + + + + + | RBC | 4.07 | 3.70 - 5.20 | [facility] | | | | | M/uL | [facility] | | | | | | [facility] | | | | | | [facility] - | | | | | | LAB[facility]ATORY | | + + + + + + | Hemoglobin | 12.6 | 11.5 - 16.0 | [facility] | | | | | g/dL | [facility] | | | | | | [facility] | | | | | | [facility] - | | | | | | LAB[facility]ATORY | | + + + + + + | Hematocrit | 37.5 | 34.0 - 47.0 % | [facility] | | | | | | [facility] | | | [facility] | [facility] | | | | | [facility] - | | | | | | [facility]ATORY | | + + + + + + | MCV | 92.0 | 83.0 - 101.0 fL | [facility] | | | | | | [facility] | | | | | | [facility] | | | | | | [facility] - | | | | | | LAB[facility]ATORY | | + + + + + + | MCH | 30.9 | 28.0 - 35.0 pg | [facility] | | | | | | [facility] | | | | | | [facility] | | | | | | [facility] - | | | | | | LAB[facility]ATORY | | + + + + + + | MCHC | 33.5 | 32.0 - 36.0 | [facility] | | | | | g/dL | [facility] | | | | | | [facility] | | | | | | [facility] - | | | | | | LAB[facility]ATORY | | + + + + + + | RDW-CV | 18.2 (H) | <15.0 % | [facility] | | | | | | [facility] | | [facility] | [facility] | | | | | | [facility] - | | | | | | LAB[facility]ATORY | | + + + + + + | Platelet | 193 | 140 - 440 K/uL | [facility] | | | Count | | | [facility] | | | | [facility] | [facility] | | | | | | [facility] - | | | | | | LABORATORY | | + + + + + + | MPV | 7.3 | fL | [facility] | | | | | | [facility] | | | | [facility] | [facility] | | | | | | [facility] - | | | | | | LAB[facility]ATORY | | + + + + + + | % | 85.9 (H) | 45.0 - 82.0 % | [facility] | | | Neutrophils | | | [facility] | | | | | | [facility] | | | | | | [facility] - | | | | | | LABORATORY | | + + + + + + | % | 9.2 (L) | 20.0 - 45.0 % | [facility] | | | Lymphocytes | | | [facility] | | | | | | [facility] | | | | | | [facility] - | | | | | | LABORATORY | | + + + + + + | % Monocytes | 4.2 | 4.0 - 12.0 % | [facility] | | | | | | [facility] | | | | | | [facility] | | | | | | [facility] - | | | | | | LAB[facility]ATORY | | + + + + + + | % | 0.4 | 0.0 - 5.0 % | [facility] | | | Eosinophils | | | [facility] | | | | | | [facility] | | | | | | [facility] - | | | | | | LABORATORY | | + + + + + + | % Basophils | 0.3 | 0.0 - 1.0 % | [facility] | | | | | | [facility] | | | | | | [facility] | | | | | | [facility] - | | | | | | LABORATORY | | + + + + + + | Absolute | 6.40 | 1.80 - 8.50 | [facility] | | | Neutrophils | | K/uL | [facility] | | | | | | [facility] | | | | | | [facility] - | | | | | | LABORATORY | | + + + + + + | Absolute | 0.70 | 0.60 - 3.20 | [facility] | | | Lymphocytes | | K/uL | [facility] | | | | | | [facility] | | | | | | [facility] - | | | | | | LABORATORY | | + + + + + + | Absolute | 0.30 | 0.00 - 1.00 | [facility] | | | Monocytes | | K/uL | [facility] | | | | | | [facility] | | | | | | [facility] - | | | | | | LAB[facility]ATORY | | + + + + + + | Absolute | 0.00 | 0.00 - 0.40 | [facility] | | | Eosinophils | | K/uL | [facility] | | | | | | [facility] | | | | | | [facility] - | | | | | | LABORATORY | | + + + + + + | Absolute | 0.00 | 0.00 - 0.10 | [facility] | | | Basophils | | K/uL | [facility] | | | | | | MEDICAL | | | | | | CENTER - | | | | | | LABORATORY | | + + + + + + + + | Specimen | + + | Blood | + + + + + + + | Performing | Address | City/State/Zipcode | Phone Number | | Organization | | | | + + + + + | [facility] | [address] | [place] | [phone] | | [facility] | | [address] | | | - LABORATORY | | | | + + + + + | [facility] | [address] | [place] | | | [facility] | | [address] | | | - LABORATORY | | | | + + + + + Comprehensive Metabolic Panel (08/07/2014 9:16 AM PDT) + + + + + + | Component | Value | Ref Range | Performed | Pathologist | | | | | At | Signature | + + + + + + | Na | 137 | 136 - 149 | [facility] | | | | | mmol/L | [facility] | | | | | | [facility] | | | | | | [facility] - | | | | | | LABORATORY | | + + + + + + | K | 4.0 | 3.5 - 5.1 | [facility] | | | | | mmol/L | [facility] | | | [facility] | | [facility] | | | | | | CENTER - | | | | | | LABORATORY | | + + + + + + | Cl | 103 | 98 - 109 mmol/L | [facility] | | | | | | [facility] | | | | | | [facility] | | | | | | [facility] - | | | | | | LABORATORY | | + + + + + + | CO2 | 26 | 24 - 31 mmol/L | [facility] | | | | | | [facility] | | | | | | [facility] | | | | | | C[facility] - | | | | | | LABORATORY | | + + + + + + | Anion Gap | 8 | 3 - 16 mmol/L | [facility] | | | | | | [facility] | | | | | | [facility] | | | | | | C[facility] - | | | | | | LABORATORY | | + + + + + + | Glucose | 112 (H) | 70 - 109 mg/dL | [facility] | | | | | | [facility] | | | | | | [facility] | | | | | | [facility] - | | | | | | LABORATORY | | + + + + + + | BUN | 14 | 7 - 18 mg/dL | [facility] | | | | | | [facility] | | | | | | [facility] | | | | | | CENTER - | | | | | | LABORATORY | | + + + + + + | Creatinine | 0.88 | 0.60 - 1.30 | [facility] | | | | | mg/dL | [facility] | | | | | | [facility] | | | | | | CENTER - | | | | | | LABORATORY | | + + + + + + | eGFR if not | >60Comment: GLOMERULAR | >=60 | [facility] | | | | FILTRATION | mL/min/1.73m2 | [facility] | | | ANGUILLAN | RATE,ESTIMATED | | MEDICAL | | | | mL/min/1.86v8Amcr than | | CENTER - | | | | 60 Chronic kidney | | LABORATORY | | | | disease,if found over a | | | | | | 3-month period.Less than | | | | | | 15 Kidney failureFor | | | | | | | | | | | | Americans,multiply the | | | | | | calculated GFR by 1.21. | | | | | | | | | | + + + + + + | Calcium | 8.9 | 8.3 - 10.5 | [facility] | | | | | mg/dL | [facility] | | | | | | [facility] | | | | | | C[facility] - | | | | | | LABORATORY | | + + + + + + | Albumin | 3.2 | 3.2 - 5.0 g/dL | [facility] | | | | | | [facility] | | | | | | [facility] | | | | | | C[facility] - | | | | | | LABORATORY | | + + + + + + | Bilirubin | 0.6 | 0.1 - 1.5 mg/dL | [facility] | | | Total | | | [facility] | | | | | | [facility] | | | | | | CENTER - | | | | | | LABORATORY | | + + + + + + | Total | 6.2 | 6.0 - 7.8 g/dL | [facility] | | | Protein | | | [facility] | | | | | | [facility] | | | | | | C[facility] - | | | | | | LABORATORY | | + + + + + + | AST | 33 | 10 - 42 U/L | [facility] | | | | | | [facility] | | | | | | [facility] | | | | | | C[facility] - | | | | | | LABORATORY | | + + + + + + | ALT | 28 | 6 - 45 U/L | [facility] | | | | | | [facility] | | | | | | [facility] | | | | | | CENTER - | | | | | | LABORATORY | | + + + + + + | Alkaline | 75 | 40 - 110 U/L | [facility] | | | Phosphatase | | | [facility] | | | | | | [facility] | | | | | | CENTER - | | | | | | LABORATORY | | + + + + + + | Globulin | 3.0 | g/dL | [facility] | | | | | | [facility] | | | | | | [facility] | | | | | | CENTER - | | | | | | LABORATORY | | + + + + + + | Albumin/Mattie | 1.1 | | [facility] | | | bulin Ratio | | | [facility] | | | | | | [facility] | | | | | | CENTER - | | | | | | LABORATORY | | + + + + + + | BUN/Creatin | 15.9 | | [facility] | | | ine Ratio | | | [facility] | | | | | | [facility] | | | | | | CENTER - | | | | | | LABORATORY | | + + + + + + + + | Specimen | + + | Blood | + + + + + + + | Performing | Address | City/State/Zipcode | Phone Number | | Organization | | | | + + + + + | [facility] | [address] | [place] | [phone] | | [facility] | | [address] | | | - LABORATORY | | | | + + + + + | [facility] | [address] | [place], [place] | | | [facility] | | [address] | | | - LABORATORY | | | | + + + + + documented in this encounter Visit Diagnoses + + | Diagnosis | + + | Recurrent squamous cell carcinoma of lung, unspecified laterality (HCC) | + + | Pulmonary nodules Other nonspecific abnormal finding of lung field | + + documented in this encounter Administered Medications + +---------+ +--------+-------+------+ | Medication Order | MAR | Action | Dose | Rate | Site | | | Action | Date | | | | + +---------+ +--------+-------+------+ | CARBOplatin (PARAPLATIN) 190 mg | New Bag | 08/08/19 | 190 mg | 538 | | | in sodium chloride 0.9% 250 mL | | 15 12:55 | | mL/hr | | | chemo infusion 190 mg (Target | | PM PDT | | | | | AUC = 2), Intravenous, Administer | | | | | | | over 30 Minutes, ONCE, Mon | | | | | | | 08/07/14 at 1230, For 1 dose, AUC | | | | | | | 2= 186.4 mg; rounded to 190 mg | | | | | | | per rounding protocol, | | | | | | + +---------+ +--------+-------+------+ +---+---+ | | | +---+---+ + +-------+ +-------+---+---+ | diphenhydrAMINE (BENADRYL) | Given | 08/08/19 | 25 mg | | | | injection 25 mg 25 mg, | | 15 11:02 | | | | | Intravenous, ONCE, Thu08/07/14 at | | AM PDT | | | | | 1100, For 1 dose, Administer 30 | | | | | | | minutes prior to PACLitaxel ., | | | | | | + +-------+ +-------+---+---+ +---+---+ | | | +---+---+ + +-------+ +-------+---+---+ | famotidine (PEPCID) injection | Given | 08/08/19 | 20 mg | | | | 20 mg 20 mg, Intravenous, ONCE, | | 15 11:00 | | | | | Thu08/07/14 at 1100, For 1 dose, | | AM PDT | | | | | Keep in refrigerator. Administer | | | | | | | 30 minutes prior to PACLitaxel. | | | | | | | Prior to administration, prepare | | | | | | | a 20 mg dose by diluting 2 mL of | | | | | | | famotidine 10 mg/mL to 10 mL with | | | | | | | normal saline., | | | | | | + +-------+ +-------+---+---+ +---+---+ | | | +---+---+ + +-------+ +-------+---+---+ | heparin 100 units/mL flush 500 | Given | 08/08/19 | 500 | | | | Units 500 Units (5 mL), | | 15 1:33 | Units | | | | Intracatheter, PRN, Line Care, | | PM PDT | | | | | Starting 08/07/14 at 1044 | | | | | | + +-------+ +-------+---+---+ +---+---+ | | | +---+---+ + +---------+ +-------+--------+---+ | PACLitaxel (TAXOL) 81 mg in | New Bag | 08/08/19 | 81 mg | 263.5 | | | sodium chloride 0.9% 250 mL chemo | | 15 11:25 | | mL/hr | | | infusion 81 mg (rounded from | | AM PDT | | | | | 80.1 mg = 45 mg/m2 | | | | | | | 1.78 m2 Treatment plan recorded | | | | | | | BSA), Intravenous, Administer | | | | | | | over 1 Hours, ONCE, 08/07/14 at | | | | | | | 1130, For 1 dose, Chemotherapy: | | | | | | | This is a high risk medication. | | | | | | | Vesicant. Use non-DEHP bag and | | | | | | | tubing. Use inline filter not | | | | | | | greater than 0.22 microns. This | | | | | | | drug has a high incidence of | | | | | | | infusion reactions. Patient must | | | | | | | be directly and frequently | | | | | | | observed during drug | | | | | | | administration. FIRST ONE--START | | | | | | | SLOW, | | | | | | + +---------+ +-------+--------+---+ +---+---+ | | | +---+---+ + +---------+ +---+--------+---+ | palonosetron (ALOXI) 0.25 mg, | New Bag | 08/08/19 | | 209.3 | | | dexamethasone (DECADRON) 8 mg in | | 15 11:02 | | mL/hr | | | sodium chloride 0.9% 50 mL IVPB | | AM PDT | | | | | Intravenous, Administer over 16 | | | | | | | Minutes, ONCE, 08/07/14 at | | | | | | | 1100, For 1 dose | | | | | | + +---------+ +---+--------+---+ +---+---+ | | | +---+---+ documented in this encounter
--- OUTSIDE RECORDS SUMMARY | ~2019-05-05 | XMS | Encounter Summary ---
Demographics + + + | Address | [address] | | | [place] [address] | + + + | Home Phone | | + + + | Preferred Language | Unknown | + + + | Marital Status | | + + + | Hindu Affiliation | Unknown | + + + [...] [place] | | | | | [address] | | + + + + + Care Team Providers + +------+ + | Care Ssrs Report Developer Name | Role | Phone | + [...] | MED CTR EXTERNAL | MD [address] | | | | | IMAGING | [place] [address] | | | | | [phone] | [place] [address] | | +--------+ + + + + [...] | | | | | [place] [address] | | | | | | [phone] | | | | | | | | +--------+ + + + + | 06/08/ | Office | Physical Medicine | Rocky Santos | | | 2019 | Visit | and Rehabilitation | [address] | | | | | | [place] | | | | | | [address] | | | | | | | | +--------+ + + + + | 06/16/ | Appointment | Pulmonology | Eveline Jaffe | | 2019 | | | MD [address] | | | | | | [address] | | | | | | [place] [address] | | | | | | [phone] | | | | | | | | +--------+ + + + + | 06/16/ | Office | Pulmonology | Eveline Jaffe | | | 2019 | Visit | | MD [address] | | | | | | [address] | | | | | | [place] [address] | | | | | | [phone] | | | | | | | | +--------+ + + + + | 08/24/ | Office | Cardiology | Anisha Lopez DO | | | 2019 | Visit | | [address] | | | | | | [place] | | | | | | [address] | | | | | | | [...]
--- OUTSIDE RECORDS SUMMARY | ~2019-05-05 | XMS | Encounter Summary ---
Demographics + + + | Address | [address] | | | [place] [address] | + + + | Home Phone | | + + + | Preferred Language | Unknown | + + + | Marital Status | | + + + | Jain Affiliation | Unknown | + + + | Race | Unknown | + + + | Ethnic Group | Unknown | + + + Author + + + | Author | [facility] | | | and [place] | + + + | Organization | [facility] | | | [...] [place] | | | | | [address] | | + + + + + Care Team Providers + +------+ + | Care Perinatal Coordinator Name | Role | Phone | + +------+ + | Davis Ivan MD | PCP | | + +------+ + Reason for Referral Evaluate & Treat (Routine) +--------+ + + + + + | Status | Reason | Specialty | Diagnoses / | Referred By | Referred To | | | | | Procedures | Contact | Contact | +--------+ + + + + + | Closed | Specialty | Surgery / | Diagnoses | Tabitha, | [facility] | | | Services | General | Recurrent | MD Adelita | General | | | Required | Surgery | squamous | [address] | | | | | cell | [address] | [address] | | | | | carcinoma of | [place], | [place], | | | | | lung, right | [place] | [place] [address] | | | | | (HCC) | [address] | Phone: | | | | | | Phone: | [phone] | | | | | | [phone] | Fax: | | | | | | Fax: | [phone] | | | | | | [phone] | | +--------+ + + + + + Encounter Details +--------+ + + + + | Date | Type | Department | Care Team | Description | +--------+ + + + + | 07/25/ | Hospital | [facility] | Adelita Lu MD | Recurrent squamous | | 2015 | Encounter | [facility] | [address] [facility] | cell carcinoma of | | | | ONCOL[facility] CL[facility] [address] | [place] | lung, unspecified | | | | [facility] | [address] | laterality (HCC) | | | | [place] [address] | [phone] | (Primary Dx); | | | | [phone] | | Recurrent squamous | | | | | | cell carcinoma of | | | | | | lung, right (HCC); | | | | | | Squamous cell | | | | | | carcinoma of lung, | | | | | | stage I, right (HCC) | +--------+ + + + + Social [...] + + + | Blood Pressure | 98/48 | 07/25/2014 2:53 PM | | | | | PST | | + + + + + | Pulse | 70 | 07/25/2014 2:53 PM | | | | | PST | | + + + + + | Temperature | 37.1 C (98.8 F) | 07/25/2014 2:53 PM | | | | | PST | | + + + + + | Respiratory Rate | 18 | 07/25/2014 2:53 PM | | | | | PST | | + + + + + | Oxygen Saturation | 99% | 07/25/2014 2:53 PM | | | | | PST | | + + + + + | Inhaled Oxygen | - | - | | | Concentration | | | | + + + + + | Weight | 72.6 kg (160 lb 0.9 | 07/25/2014 2:53 PM | | | | oz) | PST | | + + + + + | Height | 157.5 cm (5' 2") | 07/25/2014 2:53 PM | | | | | PST | | + + + + + | Body Mass Index | 29.27 | 07/25/2014 2:53 PM | | | | | PST | | + + + + + [...] encounter Progress Notes Adelita Lu MD - 07/25/2014 2:40 PM PST Hem-Onc Progress Note [facility] Patient name:Thea Carmona : 1945 Age: 69 y.o. CSN: [id number] Date of Service: 07/25/2014 Identifying Statement: Thea Carmona is a 69 y.o. female from [facility] with clinical stage II, pathologic stage IB non-small cell lung cancer (squamous cell). Active [...] lewis 2.CT-guided biopsy by interventional radiology at [facility] of the right lung massshows squamous cell [...] by Dr. Mace , thoracic surgeon at [facility] for consideration of broncho scopy, right thoracoscopy, thoracic lymphadenectomy to rule out N2 disease, probable lower l obectomy, possible thoracotomy . Date: September 16, 2013, 5. Right minimally invasive lower lobe lobectomy and minimally invasive thoracoscopic lymp hadenectomy : Dr. Joés Miguel mace : 09/16/13:3.2x 3.0x1.7 cm tumor, [...] squamous cell carcinoma Chief Complaint/HPI: Here for regular followup after recurrence of lung cancer REVIEW OF SYSTEMS Constitutional: Fatigue, states her energy level in none. Denies high fevers, shaking chill s, anorexia, nausea, vomiting. Weight gain of 10 lbs within the 2 months. Daily night sweats . Appetite poor. States she has to make herself eat. Ear, Nose, Mouth, Throat: States she has sores in her mouth but are from her dentures, sinc e her gums have change. No dysphagia, or tinnitus. Cardiovascular: Shortness of breath. States especially dyspnea on exertion. No chest pain, palpitations or orthopnea. Respiratory: Productive thick greenish sputum noted. No hemoptysis. Gastrointestinal: Abdominal pain from her back surgery in March 2014. No constipation, di arrhea, melena, or bright red blood per rectum. Genitourinary: States she has bladder spasm in the morning and has a difficult time emptyin g her bladder. Musculoskeletal: Generalized joint pain and tenderness. Neurologic: Occasional headaches. Visual changes at night, double vision at night when watc dunia TV. No numbness/tingling of the extremities. Endocrine: Denies peripheral edema or heat/cold intolerance. Hematologic: Spontaneous bruising no bleeding. Integumentary: Bruising noted to forearms bilaterally. Is currently taking Prednisone. Pain: Denies pain. Note:Follow up appointment with Dr. Lu. My chart:Declined Past Medical History: Past Medical History Diagnosis Date COPD (chronic obstructive pulmonary disease) ([facility]) on albuterol Spondylolisthesis of cervical region Spinal stenosis has tried cortisone injections Osteoporosis Depression Pneumonia 2009 hospitalized 5 days Rheumatoid arthritis(714.0) ([facility]) [facility] Hyperlipidemia on simvastatin Hypertension on clonidine and lisinopril Hypothyroidism GERD (gastroesophageal reflux disease) Stroke ([facility]) 2007 Stroke ([facility]) 2008 Squamous cell carcinoma of lung ([facility]) 07/2013 right lower lobe MARCE (obstructive sleep apnea) AHI 11.6 Sputum culture positive for Scopulariopsis species Recurrent squamous cell carcinoma of lung ([facility]) 07/11/[address] and RUL nodule Allergies: No Known Allergies Medications : Patient's [...] mg by mouth Daily. RESPIRATORY THERAP[facility] SUPPLIES [facility] ResMed S9 auto CPAP 5-9 cm H2O. Heater and Humidifier . All necessary supplies. AHI 11.6. Diagnosis Code(s)327.23, also has co morbid hypertension , history of stroke. Length of Need 99 months. Please send order to [facility]. RESPIRATORY THERAPY SUPPLIES [employer] Respironics autotitrating CPAP at 5-9 cm H2O [...] (98.8 F)] 37.1 C (98.8 F) Pulse: [70] 70 Resp: [18] 18 BP: (98)/(48) 98/48 mmHg Gen.: Performance status ECoG 1 . Well nourished, appears well not in apparent distress.. .. LABORATORY DATA: Recent Results (from the past 24 hour(s)) BUN Result Value Range BUN 10 7-18 mg/dL CREATININE Result Value Range Creatinine, Serum/Plasma 0.80 0.60-1.30 mg/dL eGFR if not >60 >=60 mL/min/1.73m2 Imaging: PET/CT scan June 2014: [facility]: Necrotic right lung lesion wit h SUV of 2.7 and right hilar lymph node with SUV of 12.7 IMPRESSION: Stage IB squamous non-small cell right lung cancer status post lobectomy August 2013 2. Recurrence of non-small cell lung cancer in June 2014 3. Comorbidities with rheumatoid arthritis on methotrexate, history of stroke in 2005 and 2006 on aspirin and Plavix PLAN: Extensive discussion with patient and family regarding recurrence which was biopsy pr oven non-small cell lung cancer (squamous type). Patient has a poor performance status but should be able to tolerate concurrent chemoradiation Chemotherapy will be with carboplatin AUC 2 and Taxol 45 mg/m once every week along with radiation. This will be followed by 2 cycles of systemic treatment for dose chemotherapy i f her counts and performance status allows Discussed side effects related to chemotherapy which include but not limited to myelosuppre ssion, risk of infections, alopecia, numbness and tingling in hands and feet, fatigue.Also d iscussed the risk of infusion reactions with Taxol patient She was given handouts on chemotherapy and resources of benefit of treatment were discussed with her. Patient wishes to proceed port placement .all records from [facility] were reviewed Total time face to face discussion with the patient and family was 45 minutes, more than 5 0% of the time was spent counseling and coordination of care. Adelita Lu MD Portions of this chart may have been created with dooub voice recognition software. Occasi onal wrong-word or [...] W | | | | | | [facility] | | | | | | [place] [address] | | | | | | [phone] | | | | | | | | +--------+ + + + + | 06/08/ | Office | Physical Medicine | Rocky Santos, | | | 2019 | Visit | and Rehabilitation | [address] | | | | | | [place] | | | | | | [address] | | | | | | | | +--------+ + + + + | 06/16/ | Appointment | Pulmonology | Eveline Jaffe | | | 2019 | | | MD Nichole Carter [address] | | | | | | [address] [place] | | | | | | [place] [address] | | | | | | [phone] | | | | | | | | +--------+ + + + + | 06/16/ | Office | Pulmonology | Eveline Jaffe | | | 2019 | Visit | | MD Nichole Carter [address] | | | | | | [address] [place] | | | | | | [place] [address] | | | | | | [phone] | | | | | | | | +--------+ + + + + | 08/24/ | Office | Cardiology | Anisha Lopez DO | | | 2019 | Visit | | [address] | | | | | | [place] | | | | | | [address] | | | | | | | | +--------+ + + + + + + +--------+ + + | Name | Type | Priori | Associated Diagnoses | Order Schedule | | | | ty | | | + + +--------+ + + | [facility]B REFERRAL TO [facility] | Outpatient | Routin | Recurrent squamous | Ordered: 07/25/2014 | | [facility] | Referral | e | cell carcinoma of | | | | | | lung, right (HCC) | | + + +--------+ + + documented as of this encounter Procedures + +--------+ + + + | Procedure Name | Priori | Date/Time | Associated Diagnosis | Comments | | | ty | | | | + +--------+ + + + | BUN | Routin | 07/25/2014 | Squamous cell | Results for this | | | e | 3:34 PM | carcinoma of lung, | procedure are in the | | | | PST | stage I, right (HCC) | results section. | + +--------+ + + + | CREATININE | Routin | 07/25/2014 | Squamous cell | Results for this | | | e | 3:34 PM | carcinoma of lung, | procedure are in the | | | | PST | stage I, right (HCC) | results section. | + +--------+ + + + documented in this encounter Results Creatinine (07/25/2014 3:34 PM PST) + +-------+ + + + | Component | Value | Ref Range | Performed | Pathologist | | | | | At | Signature | + +-------+ + + + | Creatinine | 0.80 | 0.60 - 1.30 | [facility] | | | | | mg/dL | [facility] | [facility] | | | | | [facility] - | | | | | | LABORATORY | | + +-------+ + + + | eGFR if not | >60 | >=60 | [facility] | | | | | mL/min/1.73m2 | [facility] | | | [facility] | | | [facility] | | | | | | [facility] - | | | | | | LABORATORY | | + +-------+ + + + + + | Specimen | + + | Blood | + + + + + + + | Performing | Address | City/State/Zipcode | Phone Number | | Organization | | | | + + + + + | [facility] | [address] | [place] | [phone] | | [facility] | | [address] | | | - LABORATORY | | | | + + + + + | [facility] | [address] | [place] | | | [facility] | | [address] | | | - LABORATORY | | | | + + + + + BUN (07/25/2014 3:34 PM PST) + +-------+ + + + | Component | Value | Ref Range | Performed | Pathologist | | | | | At | Signature | + +-------+ + + + | BUN | 10 | 7 - 18 mg/dL | [facility] | | | | | [facility] | | [facility] | | | | | | [facility] - | | | | | | LABORATORY | | + +-------+ + + + + + | Specimen | + + | Blood | + + + + + + + | Performing | Address | City/[facility]/Zipcode | Phone Number | | Organization | | | | + + + + + | [facility] | [address] | [place], [place] | [phone] | | [facility] | | [address] | | | - LABORATORY | | | | + + + + + | [facility] | [address] | [place], [place] | | | [facility] | | [address] | | | - LABORATORY | | | | + + + + + documented in this encounter Visit Diagnoses + + | Diagnosis | + + | Recurrent squamous cell carcinoma of lung, unspecified laterality (HCC) - Primary | + + | Squamous cell carcinoma of lung, stage I, right (HCC) | + + documented in this encounter
--- OUTSIDE RECORDS SUMMARY | ~2019-05-05 | XMS | Encounter Summary ---
Demographics + + + | Address | [address] | | | [place] [address] | + + + | Home Phone | | + + + | Preferred Language | Unknown | + + + | Marital Status | | + + + | Sikh Affiliation | Unknown | + + + [...] [place] | | | | | [address] | | + + + + + Care Team Providers + +------+ + | Care Optometrist Name | Role | Phone | + [...] + + | Closed | Specialty | Physical | Diagnoses | Tom, | Margarita, | | | Services | Medicine and | Chronic | Rocky Horvath MD | Isiah Knox MD | | | Required | Rehabilitatio | bilateral | [address] | | | | n | low back | [address] | [address] [place] | | | | | pain without | [place], | [place], [place] | | | | | sciatica | [place] [address] | [address] Phone: | | | | | Hyperalgesia | Phone: | [phone] | | | | | History of | [phone] | Fax: | | | | | lumbar | Fax: | [phone] | | | | | fusion | [phone] | | | | | | Failed back | | | | | | | syndrome | | | | | | | Procedures | | | | | | | | | | | | | | CLINIC | | | +--------+ + + + + + Evaluate & Treat (Routine) + + + + + + + | Status | Reason | Specialty | Diagnoses / | Referred By | Referred To | | | | | Procedures | Contact | Contact | + + + + + + + | Authorized | Specialty | Physical | Diagnoses | Tom | [facility] | | | Services | Therapy | Chronic | Rocky Horvath MD | HOSPITAL | | | Required | | bilateral | [address] | PHYSICAL | | | | | low back | [address] | THERAPY [address] | | | | | pain without | [place], | [place] | | | | | sciatica | [place] [address] | [place], [place] | | | | | Hyperalgesia | Phone: | [phone] | | | | | History of | [phone] | Phone: | | | | | lumbar | Fax: | [phone] | | | | | fusion | [phone] | Fax: | | | | | | | [phone] | + + + + + + + Reason for Visit + + + | Reason | Comments | + + + | Back Pain | | + + + Follow Up (Routine) + +--------+ + + + + | Status | Reason | Specialty | Diagnoses / | Referred By | Referred To | | | | | Procedures | Contact | Contact | + +--------+ + + + + | Pending | | Physical | Diagnoses | Matti, | Rocky Santos | | Review | | Medicine and | Lumbar | Caitlin Mccray MD | Anselmo Horvath MD [address] | | | | Rehabilitatio | spondylosis | [address] | [address] | | | | n | Procedures | Epi [place]aston | [place], | | | | | Follow up | [place], | [place] [address] | | | | | DOS | [place] [address] | Phone: | | | | | 06/08/2019 | Phone: | [phone] | | | | | | [phone] | Fax: | | | | | | Fax: | [phone] | | | | | | [phone] | | + +--------+ + + + + Encounter Details +--------+---------+ + + + | Date | Type | Department | Care Team | Description | +--------+---------+ + + + | 04/19/ | Office | [facility] | Rocky Santos, | Chronic bilateral | | 2019 | Visit | PHYSIATRY [address] | [address] | low back pain | | | | [place], | [place], [place] | without sciatica | | | | [place] [address] | [address] | (Primary Dx); | | | | [phone] | | Hyperalgesia; | | | | | | History of lumbar | | | | | | fusion; Cervicalgia; | | | | | | History of fusion | | | | | | of cervical spine; | | | | | | Failed back syndrome | +--------+---------+ + + + Social History [...] + + + | Blood Pressure | 126/60 | 04/19/2019 2:49 PM | | | | | PST | | + + + + + | Pulse | 96 | 04/19/2019 2:49 PM | | | | | PST [...] + + + + | Weight | 68 kg (150 lb) | 04/19/2019 2:49 PM | | | | | PST | | + + + + + | Height | 157.5 cm (5' 2") | 04/19/2019 2:49 PM | | | | | PST | | + + + + + | Body Mass Index | 27.44 | 04/19/2019 2:49 PM | | | | | PST | | + + + + + documented in this encounter Functional Status + + + [...] + + documented as of this encounter Patient Instructions Patient Instructions Indy Littlejohn Medical Assistant - 04/19/2019 2:30 PM PSTPhysic al therapy has been prescribed. Please participate in physical therapy. If you have not be contacted for an appointment with physical therapy within one week, please contact the clin ic. Once you have completed physical therapy please continue the home exercise program as o utline by physical therapy, indefinitely. X-rays have been requested. Please go to the x-ray department after your appointment to co mplete these x-rays. The results of your x-rays will be reviewed at your next appointment. If your x-rays demonstrate any emergent results, the clinic will contact you. documented in this encounter Progress Notes Rocky Santos MD - 04/19/2019 2:30 PM PSTFormatting of this note might be different fro m the original. Rocky Santos MD [address] [place] [address], [address] [place], [place] [address] FAX: PHYSICAL MEDICINE AND REHABILITATION H&P CHIEF COMPLAINT: Chief Complaint Patient presents with Back Pain HISTORY OF PRESENT ILLNESS: Thea Lyonsille Carmona s a 73 y.o. female being seen today at he request of Caitlin Chino MD for the complaint of bilateral low back pain. The symptoms have been gradually worsening. Thea Mary Carmona has history of lumbar fusion x2. Thea Carmona rates the pain as severe. The symptoms are continuous. Thea Cook describes the pain as throbbing. Thea Carmona does not describe lower extremity symptoms. The patient does not rep ort numbness in the bilateral lower extremities. She does not report weakness of the bilat eral lower extremities. Thea Carmona does not report any change in bowel or bladder function or saddle ane sthesia recently. Her symptoms improve with nothing. Her symptoms worsen with standing. Thea Carmona has tried PT, Steroids, Injections, Muscle relaxers and Braces. Cherie Carmona most recent course of physical therapy was completed about 1 year ago wit h no improvement in pain. Thea Caromna reports that does at home exercises on a sathya admill and stationary bicycle. Thea Carmona has history of squamous cell lung cancer. She reports remission for a bout 1 year. Thea Carmona also has history of left upper and lower extremity weakne ss due to history of stroke. Thea Carmona reports history of chronic opiate use for about 3 years. PAST MEDICAL HISTORY: Past Medical History: Diagnosis Date Acid reflux disease Acute recurrent pansinusitis Acute sinusitis 09/14/2013 AF (paroxysmal atrial fibrillation) ([facility]) Alcohol abuse quit in 05/2012; 40 year habit Anemia Angina of effort ([facility]) Arrhythmia Arthritis Bursitis of left shoulder Conjunctivitis COPD (chronic obstructive pulmonary disease) ([facility]) on albuterol COPD exacerbation ([facility]) Depression HONG (dyspnea on exertion) Folliculitis Full dentures upper & lower GERD (gastroesophageal reflux disease) Hemorrhoids, internal, with bleeding Hx of blood clots Hyperlipidemia on simvastatin Hypertension on clonidine and lisinopril Hypothyroidism 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 Right wrist pain Spinal stenosis has tried cortisone injections Spondylolisthesis of cervical region Sputum culture positive for Scopulariopsis species Squamous cell carcinoma of lung ([facility]) 07/2013 right lower lobe Stroke ([facility]) 2006 Stroke ([facility]) 2007 left sided weakness Thyroid disease Unspecified visual disturbance Upper GI bleed 06/[address] [facility] Vitamin D deficiency Wears dentures PAST SURGICAL HISTORY: Past Surgical History: Procedure Laterality Date BLADDER SUSPENSION 2000 BRONCHOSCOPY 07/11/2014 EBUS with right hilar LN biopsy, [facility] Dr. [place] BRONCHOSCOPY N/A 09/16/2013 R. Thorascopic Lower Lobectomy and Thoracic Lymphadenectomy; Laterality: N/A Chest Right S urgeon: José Miguel Mace Jr., MD; Location: [facility] MAIN OR CATARACT REMOVAL CERVICAL FUSION Posterior 04/06/2013 with decompression C4-C6 Surgeon: Silviano Cabrera MD Location: [facility] MAIN OR CERVICAL FUSION Anterior 01/19/2013 C4-6 Surgeon: Silviano Cabrera MD; Location: [facility] MAIN OR CHOLECYSTECTOMY 2001 COLONOSCOPY 06/2014 ENDOSCOPY FINGER TRIGGER RELEASE Left 12/14/2018 Procedure: Left Thumb Trigger Finger Release, Left Index Trigger Finger Release, Left Long Trigger Finger Release, Left Ring Trigger Finger Release; Surgeon: Giuliano Padilla MD; Lo cation: M MAIN OR HAND ARTHROPLASTY Left 03/20/2015 Procedure: Left 1st C.M.C. Arthroplasty; Surgeon: Giuliano Padilla MD; Location: [facility] MAIN OR HAND ARTHROPLASTY Right 10/27/2017 Procedure: Right 1st CMC Arthroplasty; Surgeon: Giuliano Padilla MD; Location: [facility] MAIN O R INJECTION STEROIDAL Right 05/27/2012 L5 S1 TFESI INJECTION STEROIDAL Right 07/15/2012 Caudal Block with Cath Target R L5,S1 LOBECTOMY Right 09/16/2013 right lower lobe with bronchoscopy LUMBAR FUSION Anterior 03/29/2014 L4-5, L5-S1 Surgeon: Silviano Cabrera MD; Location: [facility] MAIN OR LUMBAR FUSION N/A 03/31/2014 with decompression; Surgeon: Silviano Cabrera MD; Location [facility] MAIN OR LUMBAR FUSION N/A 03/31/2014 L4-S1; Surgeon: Silviano Cabrera MD Location: [facility] MAIN OR LUNG BIOPSY Right 07/21/2013 right lower lobe SHOULDER SURGERY Right 12/2011 PENNY AND BSO 1974 THORACOSCOPY Right 09/16/2013 Surgeon: José Miguel Mace Jr., MD; Location: [facility] MAIN OR THUMB SURGERY 12/02/2011 TONGUE SURGERY benign per pt TUNNELED VENOUS PORT PLACEMENT N/A 07/28/2014 Procedure: Port Placement; Surgeon: Chalino Chiu MD; Location: [facility] MAIN OR CURRENT MEDICATIONS: Current Outpatient Medications Medication Sig Dispense Refill afatinib (GILOTRIF) 30 mg tablet Take 30 mg by mouth every morning (before breakfast). albuterol-ipratropium 2.5-0.5 mg/3 mL SOLN Take 3 mLs by nebulization 4 times daily. LO N: 12 months Dx: J44.9 360 mL 3 amoxicillin (AMOXIL) 250 mg capsule Take 250 mg by mouth 3 times daily. budesonide (PULMICORT) 0.5 mg/2 mL nebulizer solution Take 2 mLs by nebulization Daily. 180 vial 3 Carboxymethylcellulose Sodium (REFRESH TEARS OP) Apply to eye. cholecalciferol (VITAMIN D-3) 1,000 units capsule Take 2,000 Units by mouth Daily. DULoxetine (CYMBALTA) [address] capsule Take 60 mg by mouth daily. folic acid 1 mg tablet Take 1 mg by mouth Daily. 0 furosemide (LASIX) 20 mg tablet Take 1 tablet by mouth Daily. 0 levothyroxine (SYNTHROID) 112 mcg tablet Take 1 tablet by mouth Daily. 0 loperamide (IMODIUM) 2 mg capsule Take 2 mg by mouth as needed. 0 methotrexate 2.5 mg tablet take 8 tablets by mouth every week 32 tablet 0 metoprolol succinate (TOPROL-XL) 25 mg 24 hr tablet Take 1 tablet by mouth daily. NARCAN 4 MG/0.1ML instill 1 spray in 1 NOSTRIL if needed for opioid overdose may re... (REFER TO PRESCRIPTION NOTES). 0 pantoprazole (PROTONIX) 40 mg tablet Take 40 mg by mouth 2 times daily (before meals). 0 potassium chloride (KLOR-CON M20) 20 mEq ER tablet Take 20 mEq by mouth 2 (two) times d aily with meals. predniSONE (DELTASONE) 5 mg tablet take 2 tablets by mouth every morning 0 pseudoePHEDrine (SUDAFED) 60 MG tablet Take 60 mg by mouth every 4 (four) hours as need ed for Congestion. Respiratory Therapy Supplies (NEBULIZER COMPRESSOR) KIT Use as directed with nebulizer medication. Dx: COPD CASIE: Lifetime. 1 each 0 Respiratory Therapy Supplies (NEBULIZER/TUBING/MOUTHPIECE) KIT Use as directed with [employer] ulizer machine. Dx: COPD CASIE: lifetime 1 each 12 roflumilast (DALIRESP) 500 mcg tablet Take 500 mcg by mouth daily. simvastatin (ZOCOR) 40 mg tablet Take 40 mg by mouth nightly. SUDOGEST 60 MG tablet take 1 tablet by mouth three times a day if needed for sinus dragan estion 0 tiotropium (SPIRIVA) 18 mcg inhalation capsule Inhale 18 mcg into the lungs Daily. TURMERIC PO Take by mouth. warfarin (COUMADIN) 5 mg tablet Take 5 mg by mouth Daily. 5MG 3 times weekly and 4 1/2 tablet other days. No current facility-administered medications for this visit. ALLERGIES: No Known Allergies SOCIAL HISTORY: The patient reports that she quit smoking about 2 years ago. Her smoking use included ciga rettes. She started smoking about 68 years ago. She has a 50.00 pack-year smoking history. S he has never used smokeless tobacco. She reports previous alcohol use. She reports previous drug use. FAMILY HISTORY: Family History Problem Relation Age of Onset COPD Sister Tobacco Use Sister Stomach cancer Father No known problems Mother Lung cancer Brother Tobacco Use Brother Alcohol abuse Brother No known problems Sister No known problems Maternal Grandmother No known problems Maternal Grandfather No known problems Paternal Grandmother No known problems Paternal Grandfather No known problems Son Asthma Other Diabetes Other REVIEW OF SYSTEMS: ROS GENERALLY: No fever, no night sweats, no anemia, no fatigue, no recent profound weight ch anges. EYES: No eye problems, no use of corrective lenses, no eye injury, no double vision, no bl indness. EARS, NOSE, AND THROAT: No changes in taste or smell, no hearing difficulty, no ringing in the ears, no ear drainage, no dizziness, no voice changes, no difficulty swallowing, no sig nificant snoring, no sleep apnea, no sinus problems, no major dental work. NEUROLOGICALLY:The patient has no numbness/pain of arms, no numbness/pain of legs, no awake with numbness/pain, no weakness, no muscle aching, no coordination difficulty, no change in walk, no head injury, no neck injury, no back injury, no pain in neck, no pain in back, no stroke, no fainting spells, no loss of consciousness, no tremor/shaking, no seizures, no hea daches, no migraine, no memory loss, no speech difficulty, no confusion and no numbness of f juli. PSYCHIATRIC: No depression, no sleep disorders, no anxiety, no bipolar disorder, no psycho tic episodes. CARDIOVASCULAR: No heart attacks, no heart murmur, no heart fluttering, no chest pain, no ankle swelling. LUNG DISEASE: No shortness of breath, no cough, no tuberculosis, no bloody cough, no asth ma, no emphysema/COPD. GASTROINTESTINAL: No bowel disease, no nausea or vomiting, no rectal bleeding, no constipa tion, no stool incontinence, no liver disease, no gallbladder disease, no abdominal pain, no ulcers. KIDNEY DISEASE: No urinary frequency, no painful or difficult urination, no incontinence. ENDOCRINE: No diabetes, no thyroid disease, no osteopenia or osteoporosis, no breast drain age. SKIN: No breast lumps, no skin changes, no rashes, no itches. HEMATOLOGIC/LYMPHATIC: No enlarged lymph nodes, no easy or unusual bleeding, no personal h istory of cancer. RHEUMATOLOGIC: No joint arthritis, no rheumatoid arthritis. PHYSICAL EXAMINATION: Blood pressure 126/60, pulse 96, height 1.575 m (5' 2"), weight 68 kg (150 lb), not current ly . Body mass index is 27.44 kg/m. GENERAL: She does appear uncomfortable when seated. HEENT: HEAD/FACE: EYES: Normocephalic and atraumatic. There are no areas of recent trauma. Normal sclerae without icterus. SKIN There are scars in the lumbar region. CHEST: The patient is in no acute respiratory distress with unlabored respirations. HEART: There is not lower extremity edema. ABDOMEN: The patient is overweight. NEUROLOGIC: The patient is awake, alert, and oriented to time, place, person. She follows simple and complex commands. Her speech is fluent. She comprehends speech well. She has no apparent deficits with short or ferry terminal agent memory. She has appropriate fund of knowledge Cranial nerves appear grossly intact. Sensory exam: MOTOR EXAM: (5 IS NORMAL) * Indicates pain limited MUSCLE/ MOVEMENT: RIGHT LEFT Hip Flexion 5 5 Hip Extension 5 5 Knee Flexion 5 5 Knee Extension 5 5 Extensor Hallicus Longus 5 5 Ankle Dorsiflexion 5 5 Plantarflexion 5 5 REFLEX: RIGHT LEFT PATELLAR 3+ 3+ ACHILLES 1+ 1+ MUSCULOSKELETAL Two surgical scars approximately over L4-5 L5-S1 Hyperalgesia over palpation of prior lumbar surgery Antalgic gait RADIOGRAPHIC REVIEW: Lumbar MRI completed on 03/22/18 was reviewed personally by me , I concur with the results as reported by the Radiologist. IMPRESSION: 1. Chronic bilateral low back pain without sciatica 2. Hyperalgesia 3. History of lumbar fusion 4. Cervicalgia 5. History of fusion of cervical spine 6. Failed back syndrome PLAN: 1. Thea Carmona presents to clinic today with chief complaint of low back pain. Ba sed on review of symptoms and exam Thea Carmona symptoms are most consistent with f kelvin back syndrome and chronic pain. Today we discussed treatment options including spinal cord stimulator, medication treatment options and physical therapy. 2. Today we discussed spinal cord stimulator in detail. Spinal cord stimulation uses [employer] deviceto send signals tothe nerve pathways inside your spinal cord.These signals help block the pain. A trial stimulator that is worn outside the body is tried first to see if it will work. If it does, the permanent stimulator system may be used. This device can b e removed at any time. Spinal cord stimulation is one treatment for chronic pain. Certain cr iteria need to be met to be a good candidate for spinal cord stimulation including neuropsyc hology consult. A small director medical science sends signals to your spinal cord. These signals keep the chronic pain messages from being sent to your brain. Order to for spinal cord stimulator trial was placed today for failed back sy ndrome. History of fusion x 2. 3. We discussed that over time, with the chronic use of opiate medication changes occur to the brain. We discussed that the perception and feelings of pain are changed. She was advise d that the use of opiate medications will increase the number of pain receptors in an indivi duals brain drastically; consequently more medication is required to alleviate or reduce the same pain. Due to this, over time pain is likely to escalate, even if structurally the back is the same. Reviewed that accumulated pain receptors may recede about after about 1 year. Brain chemistry pertaining to pain may not return back to normal. Today we reviewed risks of taking opiate pain medications including respiratory suppression and , even when medic ation is taken as prescribed. Reviewed that opiate pain medication is advised against for e treatment of chronic pain. Pain clinic referral was offered today. Thea Carmona declines referral today. Thea Carmona should continue taking Cymbalta as prescribed. 4. Surgical intervention was discussed today with Thea Carmona. We discussed that surgical treatment is usually considered last resort. We discussed that surgical treatment is recommended if weakness is affecting function. We discussed that surgical treatment is recommended if there are changes to bowel/bladder function. We discussed that surgical tr eatment may be considered if there is progressive weakness. We discussed that surgical sathya atment may be helpful for radicular symptoms, but back pain may persist after surgical treat ment. Today we discussed correlation of persisting pain following surgical treatment options with those who take opiate pain medications for chronic pain. Thea Carmona has his tory of lumbar fusion x 2. 5. Today we discussed order for physical therapy for the treatment of back pain with focus of desensitization due to chronic pain. Physical therapy may be limited due to history of [place] PD and lung cancer history. In addition order to evaluate for tens unit was placed today. 6. In addition Thea Carmona reports neck pain. Thea Carmona has history o f cervical fusion. Unfortunately due to limited time neck pain was not addressed in detail. Order for cervical xray was placed today to evaluate for interval change since last imagine completed in 2014. 7. Thea Carmona should return to clinic as schedule to review physical therapy and discuss neck pain. I, Rocky Santos MD personally performed the services described in this documentation, as scribed by in my presence, KEVIN Guajardo and are both accurate and complete. Rocky Santos MD - 04/19/2019 documented in this en counter Plan of Treatment +--------+ + + + + | Date | Type | Specialty | Care Team | Description | +--------+ + + + + | 05/30/ | Office | Rheumatology | Santosh Sumner, | | | 2019 | Visit | | [address] | | | | | | [address] | | | | | | [place] [address] | | | | | | [phone] | | | | | | | | +--------+ + + + + | 06/08/ | Office | Physical Medicine | Rocky Santos, | | | 2019 | Visit | and Rehabilitation | MD [address] | | | | | | [place] | | | | | | [address] | | | | | | | | +--------+ + + + + | 06/16/ | Appointment | Pulmonology | Eveline Jaffe | | | 2019 | | | MD [address] | | | | | | [place] | | | | | | [place] [address] | | | | | | [phone] | | | | | | | | +--------+ + + + + | 06/16/ | Office | Pulmonology | Eveline Jaffe | | | 2019 | Visit | | MD Ra[address] | | | | | | [address] [place] | | | | | | [place] [address] | | | | | | [phone] | | | | | | | | +--------+ + + + + | 08/24/ | Office | Cardiology | Anisha Lopez DO | | | 2019 | Visit | | [address] | | | | | | [place] | | | | | | [address] | | | | | | | | +--------+ + + + + + + +--------+ + + | Name | Type | Priori | Associated Diagnoses | Order Schedule | | | | ty | | | + + +--------+ + + | Physical Therapy - | Outpatient | Routin | Chronic bilateral | Ordered: 04/19/2019 | | Ambulatory Referral | Referral | e | low back pain | | | | | | without sciatica | | | | | | Hyperalgesia | | | | | | History of lumbar | | | | | | fusion | | + + +--------+ + + | * [facility] | Outpatient | Routin | Chronic bilateral | Ordered: 04/19/2019 | | Physiatry - AMB | Referral | e | low back pain | | | Referral | | | without sciatica | | | | | | Hyperalgesia | | | | | | History of lumbar | | | | | | fusion Failed back | | | | | | syndrome | | + + +--------+ + + documented as of this encounter Results XR Cervical Spine 4 or 5 Vws (04/22/2019 12:11 PM PST) + + | Specimen | + + | | + + + + + | Impressions | Performed At | + + + | 1. INTACT FUSION HARDWARE EXTENDING FROM C4 THROUGH C6 WITH | [facility] | | DEGENERATIVE DISC DISEASE AT C6-7, MULTILEVEL FACET HYPERTROPHY AND | | | MILD SPONDYLOLISTHESIS DESCRIBED. Dictated and Signed by: Herminio | | | MD Gurmeet Electronically signed: 04/22/2019 3:31 PM | | + + + + + + | Narrative | Performed At | + + + | FOUR VIEWS CERVICAL SPINE 04/22/2019 12:11 PM CLINICAL HISTORY: | [facility] | | cervicalgia COMPARISON: Cervical CT 2014, chest CT September 03 | | | FINDINGS: An AP view and lateral views in neutral, flexed and extended | | | positions are provided. Leftward cervical curvature persists. | | | Interbody and anterior plate and screw fusion hardware as well as | | | posterior lara and screw hardware again extends from C4 through C6 and | | | appears stable and intact. Vertebral height is maintained without | | | evident fracture. Prominent disc space narrowing is again evident | | | at C6-7. There is multilevel facet hypertrophy. Mild | | | anterolisthesis at C2-3, C3-4 and C4-5 persists with flexion and | | | extension. Left IJ port catheter again extends to the level of the | | | mid SVC. There is similar prominence and ill-definition of the | | | right hilar contour. | | + + + + + | Procedure Note | + + | Fabián, Rad Results In - 04/22/2019 3:34 PM PST FOUR VIEWS CERVICAL SPINE 04/22/2019 | | 12:11 PMCLINICAL HISTORY: cervicalgiaCOMPARISON: Cervical CT 2014, chest CT August | | 5FINDINGS: An AP view and lateral views in neutral, flexed and extended positionsare | | provided. Leftward cervical curvature persists. Interbody and anteriorplate and screw | | fusion hardware as well as posterior lara and screw hardwareagain extends from C4 through | | C6 and appears stable and intact. Vertebralheight is maintained without evident | | fracture. Prominent disc space narrowingis again evident at C6-7. There is multilevel | | facet hypertrophy. Mildanterolisthesis at C2-3, C3-4 and C4-5 persists with flexion and | | extension. Left IJ port catheter again extends to the level of the mid SVC. There | | issimilar prominence and ill-definition of the right hilar contour.IMPRESSION: 1. | | INTACT FUSION HARDWARE EXTENDING FROM C4 THROUGH C6 WITH DEGENERATIVE DISCDISEASE AT | | C6-7, MULTILEVEL FACET HYPERTROPHY AND MILD SPONDYLOLISTHESIS ASDESCRIBED.Dictated and | | Signed by: Herminio Levi MD Electronically signed: 04/22/2019 3:31 PM | |Left IJ port catheter again extends to the level of the mid SVC. There is | |similar prominence and ill-definition of the right hilar contour. | | | |IMPRESSION: | |1. INTACT FUSION HARDWARE EXTENDING FROM C4 THROUGH C6 WITH DEGENERATIVE DISC | |DISEASE AT C6-7, MULTILEVEL FACET HYPERTROPHY AND MILD SPONDYLOLISTHESIS | |DESCRIBED. | | | |Dictated and Signed by: Herminio Levi MD | | Electronically signed: 04/22/2019 3:31 PM | + + + +---------+ + + | Performing | Address | City/State/Zipcode | Phone Number | | Organization | | | | + +---------+ + + | [facility] | | | | + +---------+ + + documented in this encounter Visit Diagnoses + + | Diagnosis | + + | Chronic bilateral low back pain without sciatica - Primary | + + | Hyperalgesia Disturbance of skin sensation | + + | History of lumbar fusion | + + | Cervicalgia | + + | History of fusion of cervical spine Arthrodesis status | + + | Failed back syndrome Other unspecified back disorder | + + documented in this encounter
--- OUTSIDE RECORDS SUMMARY | ~2019-05-05 | XMS | Encounter Summary ---
Demographics + + + | Address | [address] | | | [place] [address] | + + + | Home Phone | | + + + | Preferred Language | Unknown | + + + | Marital Status | | + + + | Gnosticist Affiliation | Unknown | + + + | Race | Unknown | + + + | Ethnic Group | Unknown | + + + Author + + + | Author | [facility] | | | and [place] | + + + | Organization | [facility] | | | and [...] [place] | | | | | [address] | | + + + + + Care Team Providers + +------+ + | Care Precision Instrument Maker Name | Role | Phone | + +------+ + | Davis Ivan MD | PCP | | + +------+ + Reason for Visit + + + | Reason | Comments | + + + | Medication Refill | | + + + Encounter Details +--------+--------+ + + + | Date | Type | Department | Care Team | Description | +--------+--------+ + + + | 05/05/ | Refill | [facility] | Vivian, | Medication Refill | | 2015 | | MED CTR MEDICAL | Lokesh Gramajo MD [address] | | | | | [facility] [address] | [facility] | | | | | [facility] | [place] [address] | | | | | [place] [address] | [phone] | | | | | [phone] | | | +--------+--------+ + + + [...] | | | | | [place] [address] | | | | | | [phone] | | | | | | | | +--------+ + + + + | 06/08/ | Office | Physical Medicine | Rocky Santos, | | | 2019 | Visit | and Rehabilitation | [address] | | | | | | [place] | | | | | | [address] | | | | | | | | +--------+ + + + + | 06/16/ | Appointment | Pulmonology | Eveline Jaffe | | | 2019 | | | MD [address] | | | | | | [address] [place] | | | | | | [place] [address] | | | | | | [phone] | | | | | | | | +--------+ + + + + | 06/16/ | Office | Pulmonology | Eveline Jaffe | | | 2019 | Visit | | MD [address] | | | | | | [address] [place] | | | | | | [place] [address] | | | | | | [phone] | | | | | | | | +--------+ + + + + | 08/24/ | Office | Cardiology | Anisha Lopez DO | | | 2019 | Visit | | [address] | | | | | | [place] | | | | | | [address] | | | | | | | | +--------+ + + + + documented as of this encounter Visit Diagnoses + + | Diagnosis | + + | Gastroesophageal reflux disease without esophagitis - Primary Esophageal reflux | + + documented in this encounter"
--- OUTSIDE RECORDS SUMMARY | ~2019-05-05 | XMS | Encounter Summary ---
Demographics + + + | Address | [address] | | | [place] [address] | + + + | Home Phone | | + + + | Preferred Language | Unknown | + + + | Marital Status | | + + + | Adventist Affiliation | Unknown | + + + | Race | Unknown | + + + | Ethnic Group | Unknown | + + + Author + + + | Author | [facility] | | | and [place] | + + + | Organization | [facility] | | | [...] [place] | | | | | [address] | | + + + + + Care Team Providers + +------+ + | Care Loft Rigger Name | Role | Phone | + [...] | | Pulmonary | [place], | [address] | | | | | nodule | Ayana B, | [place], | | | | | Procedures | MD [address] | [place] [address] | | | | | CT Chest wo | [address] | Phone: | | | | | Contrast | [place], | [phone] | | | | | | [place] [address] | Fax: | | | | | | | [phone] | +--------+--------+ + + + + Encounter Details +--------+ + + + + | Date | Type | Department | Care Team | Description | +--------+ + + + + | 06/09/ | Hospital | [facility] | [place], | Pulmonary nodule | | 2013 | Encounter | MED CTR XRAY [address] | Ayana Looney MD | | | | | [address] | | | | | | [place] [address] | | | | | | [phone] | | | +--------+ + + + [...] | 2018 | Visit | | [address] | | | | | | [facility] | | | | | | [place] [address] | | | | | | [phone] | | | | | | | | +--------+ + + + + | 06/08/ | Office | Physical Medicine | Rocky Santos, | | | 2019 | Visit | and Rehabilitation | MD [address] | | | | | | [place] | | | | | | [address] | | | | | | | | +--------+ + + + + | 06/16/ | Appointment | Pulmonology | Eveline Jaffe | | | 2019 | | | MD [address] | | | | | | [address] [place] | | | | | | [place], [place] [address] | | | | | | [phone] | | | | | | | | +--------+ + + + + | 06/16/ | Office | Pulmonology | Eveline Jaffe | | | 2019 | Visit | | MD [address] | | | | | | [address] [place] | | | | | | [place] [address] | | | | | | [phone] | | | | | | | | +--------+ + + + + | 08/24/ | Office | Cardiology | Anisha Lopez DO | | 2019 | Visit | | [address] | | | | | | [place] | | | | | | [address] | | | | | | | [...] Performed At | + + + | [facility] | [place] | | Department [address] [facility] | [facility] | | [ rep ct [address]] [ rep ct [facility] | | st zip] Signed | - IMAGING | | | | | Patient Name: THEA CARMONA Physician: | | | KATIEJanet : 1945 Age: 68 Sex: F Unit #: [id number] | | | Exam Date: 06/09/13 Location: [facility] | | | Report #: [id number] Page: | | | %(RAD)RES..mtdd.print.filter("pg") of %(RAD) | | | RES..mtdd.print.filter("tpg") | | | | | | Accession Number: [id number] | | | CT CHEST WITHOUT CONTRAST, 06/09/2013 CLINICAL HISTORY: | | | FOLLOWUP NODULE IN THE SUPERIOR SEGMENT OF THE RIGHT LOWER LOBE. | | | TECHNIQUE: Axial images were obtained from thoracic inlet to | | | upper abdomen without the use of contrast. | | | COMPARISON: 01/28/2013 scan from [place]. FINDINGS: A | | | partially cavitary [...] Transcribed Date/Time: 06/09/2013 16:14 | | | Pile Driver Operator Barge Mounted: <<Signature on File>> | | | | | | Jose Elias Leal MD06/09/13 1702 <Electronically signed by | | | Jose Elias Leal MD> Jose Elias Leal MD 06/09/13 | | | 1545 Pile Driver Operator Barge Mounted: Construct [id number]/09/14 4964 | | | Ayana Taylor MD | | + + + + + + + + | Performing | Address | City/State/Zipcode | Phone Number | | Organization | | | | + + + + + | [facility] | [address] | [place], [place] | [phone] | | [facility] | | [address] | | | - IMAGING | | | | + + + + + XR Cervical Spine 3 Vws or Less (06/09/2013 2:42 PM PST) + + | Specimen | + + | | + + + + + | Narrative | Performed At | + + + | [facility] | [place] | | Department [address] [place] | [facility] | | [ rep ct [address]] [ rep ct [facility] | | st zip] Signed | - IMAGING | | | | | Patient Name: THEA CARMONA Physician: | | | 20 : 1945 Age: 68 Sex: F Unit #: [id number] | | | Exam Date: 06/09/13 Location: [facility] | | | Report #: [id number] Page: | | | %(RAD)RES..mtdd.print.filter("pg") of %(RAD) | | | RES..mtdd.print.filter("tpg") | | | | | | Accession Number: [id number] | | | CERVICAL SPINE CLINICAL HISTORY: [...] Transcribed | | | Date/Time: 06/09/2013 15:09 Pile Driver Operator Barge Mounted: | | | <<Signature on File>> | | | Ronak | | | Abilio Heath MD06/10/13 1057 <Electronically signed by Ronak Knox | | | Kumar HESS> Ronak Heath MD 06/09/13 1442 | | | Pile Driver Operator Barge Mounted: Construct [id number]/09/14 1509 | | | Silviano Cabrera Jr, MD | | + + + + + + + + | Performing | Address | City/State/Zipcode | Phone Number | | Organization | | | | + + + + + | [facility] | [address] | [place] | [phone] | | [facility] | | [address] | | | - IMAGING | | | | + + + + + documented in this encounter Visit Diagnoses + + | Diagnosis | + + | Pulmonary nodule Solitary pulmonary nodule | + + documented in this encounter
--- OUTSIDE RECORDS SUMMARY | ~2019-05-05 | XMS | Encounter Summary ---
Demographics + + + | Address | [address] | | | [place] [address] | + + + | Home Phone | | + + + | Preferred Language | Unknown | + + + | Marital Status | | + + + | Scientology Affiliation | Unknown | + + + | Race | Unknown | + + + | Ethnic Group | Unknown | + + + Author + + + | Author | [facility] | | | and [place] | + + + | Organization | [facility] | | | [...] [place] | | | | | [address] | | + + + + + Care Team Providers + +------+ + | Care Boring Machine Feeder Name | Role | Phone | + +------+ + | Davis Ivan MD | PCP | | + +------+ + Reason for Visit +---------+ + | Reason | Comments | +---------+ + | Results | | +---------+ + Encounter Details +--------+ + + + + | Date | Type | Department | Care Team | Description | +--------+ + + + + | 05/10/ | Telephone | [facility] [place] | [place], | Results | | 2013 | | PULMONARY [address] | Ayana Looney MD | | | | | [place], | | | | | | [place] [address] | | | | | | [phone] | | | +--------+ + + + [...] | | | | | [place] [address] | | | | | | [phone] | | | | | | | | +--------+ + + + + | 06/08/ | Office | Physical Medicine | Rocky Santos | | | 2019 | Visit | and Rehabilitation | [address] | | | | | | [place] | | | | | | [address] | | | | | | | | +--------+ + + + + | 06/16/ | Appointment | Pulmonology | Eveline Jaffe | | 2019 | | | MD [address] | | | | | | [address] [place] | | | | | | [place] [address] | | | | | | [phone] | | | | | | | | +--------+ + + + + | 06/16/ | Office | Pulmonology | Eveline Jaffe | | | 2019 | Visit | | MD [address] | | | | | | [address] [place] | | | | | | [place] [address] | | | | | | [phone] | | | | | | | | +--------+ + + + + | 08/24/ | Office | Cardiology | Anisha Lopez DO | | 2019 | Visit | | [address] | | | | | | [place] | | | | | | [address] | | | | | | | | +--------+ + + + + documented as of this encounter Visit Diagnoses Not on filedocumented in this encounter"
--- OUTSIDE RECORDS SUMMARY | ~2019-05-05 | XMS | Encounter Summary ---
Demographics + + + | Address | [address] | | | [place] [address] | + + + | Home Phone | | + + + | Preferred Language | Unknown | + + + | Marital Status | | + + + | Tenriism Affiliation | Unknown | + + + | Race | Unknown | + + + | Ethnic Group | Unknown | + + + Author + + + | Author | [facility] | | | and [place] | + + + | Organization | [facility] | | | [...] [place] | | | | | [address] | | + + + + + Care Team Providers + +------+ + | Care Qm Nurse Name | Role | Phone | + +------+ + | Davis Ivan MD | PCP | | + +------+ + Reason for Visit + + + | Reason | Comments | + + + | Follow-up | follow up COPD | + + + Encounter Details +--------+---------+ + + + | Date | Type | Department | Care Team | Description | +--------+---------+ + + + | 09/06/ | Office | [facility] | [place], | COPD with acute | | 2016 | Visit | PULMONARY [address] | Ayana Looney MD | exacerbation (HCC); | | | | [place], | | Essential | | | | [place] [address] | | hypertension; | | | | [phone] | | Recurrent squamous | | | | | | cell carcinoma of | | | | | | lung, right (HCC) | +--------+---------+ + + + Social [...] + + + | Blood Pressure | 148/78 | 09/07/2015 1:34 PM | | | | | PDT | | + + + + + | Pulse | 92 | 09/07/2015 1:34 PM | | | | | PDT | | + + + + + | Temperature | - | - | | + + + + + | Respiratory Rate | 20 | 09/07/2015 1:34 PM | | | | | PDT | | + + + + + | Oxygen Saturation | 92% | 09/07/2015 1:34 PM | | | | | PDT | | + + + + + | Inhaled Oxygen | - | - | | | Concentration | | | | + + + + + | Weight | 78.5 kg (173 lb) | 09/07/2015 1:34 PM | | | | | PDT | | + + + + + | Height | 157.5 cm (5' 2") | 09/07/2015 1:34 PM | | | | | PDT | | + + + + + | Body Mass Index | 31.64 | 09/07/2015 1:34 PM | | | | | PDT | | + + + + + documented in this encounter Patient Instructions Patient Instructions Ayana Taylor MD - 09/07/2015 2:20 PM PDTIf you have the alb uterol/ipratropium nebulizers, you can put aside the albuterol nebulizers and just use the c ombination nebulizer 3-4 times a day. Take prednisone 10mg tablets as follows: Start 4 tablets by mouth for 3 days, then 3 tablet s by mouth for three days, then 2 tablets by mouth for 3 days, then 1 tablet by mouth for 3 days, then stop. Take doxycycline 100mg twice daily for 10 days. Stay on the Breo 1 inhalation daily. documented in this encounter Progress Notes Ayana Taylor MD - 09/07/2015 1:38 PM PDTFormatting of this note might be differe nt from the original. Pulmonary Follow Up HPI Thea Carmona is a 70 y.o. female patient of Davis Ivan MD here today for follow up of COPD. At their last visit, we have stopped the Tudorza and started her on Duonebs. We continued h er on Breo. Since their last visit she feels like she has been doing overall pretty well. Dr. Park decided her cancer had come back shortly after her last visit. Her CT scan had shown progression, and her PET scan showed a bright area in the area of her original rec urrence in the mediastinal region. She started on Optiva for her chemotherapy. She has tolerated this reasonably well. She did have to stop her methotrexate whileon this, so her RA has been worse. Her cough has persisted, though it is a known side effect of Optiva, and is also likely rel ated to her cancer, and her esophageal issues. She is currently on a regimen of Breo 1 inhalation daily. She does feel like this medicati on regimen is working for them. She is not using her rescue inhaler. She is using her nebul izer, albuterol/ipratropium, 3-4 times a day. She returns today for routine follow up. Currently she is able to walk a couple hundred yards at her own pace on level ground. She i s not exercising regularly. She is getting out and watering the lawn in the evenings. She has been evaluated for nocturnal oxygen and does not need to use it. She does not have symptoms of heartburn or reflux. She is on omeprazole 40mg and ranitidine 150mg twice daily. Past Medical History Past Medical History Diagnosis Date COPD (chronic obstructive pulmonary disease) ([facility]) on albuterol Spondylolisthesis of cervical region Spinal stenosis has tried cortisone injections Osteoporosis Depression Pneumonia 2008 hospitalized 5 days Rheumatoid arthritis(714.0) ([facility]) on prednisone and methotrexate, Dr. Lewis [place] Hyperlipidemia on simvastatin Hypertension on clonidine and lisinopril Hypothyroidism GERD (gastroesophageal reflux disease) Stroke ([facility]) 2006 Stroke ([facility]) 2007 Squamous cell carcinoma of lung ([facility]) 07/2013 right lower lobe Sputum culture positive for Scopulariopsis species Recurrent squamous cell carcinoma of lung ([facility]) 07/11/[address] and RUL nodule MARCE (obstructive sleep apnea) AHI 11.6 no CPAP Full dentures upper & lower Upper GI bleed 06/[address] [facility] [facility] Past Surgical History Past Surgical History Procedure Laterality Date Hysterectomy Cholecystectomy Cervical spine surgery 2012 Bladder suspension Shoulder surgery Thumb surgery Shoulder surgery right shoulder Tongue surgery benign per pt Lung biopsy 07/21/13 right lower lobe Lobectomy 09/16/13 right lower lobe Back surgery 03/2014 Bronchoscopy 07/11/2014 EBUS with right hilar LN biopsy, [facility] Dr. Sierra Tunneled venous port placement N/A 07/28/2014 Procedure: Port Placement; Surgeon: Chalino Chiu MD; Location: [facility] MAIN OR Colonoscopy 06/2014 Endoscopy Hand arthroplasty Left 03/20/2015 Procedure: Left 1st C.M.C. 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 Social History Main Topics [...] Activity: Not on file Other Topics Concern None Social History Narrative Lives: in [place] With: alone Grew up: in [place] Has previously lived in: [place] Exposure to toxic chemicals: no Exposure to asbestos: no Exposure to tuberculosis: no Has had a PPD or Quantiferon before: no Has pets at home: cat and a dog Has ever owned birds: yes, 5 years ago Other animal exposures: no Hobbies: used to jaja, crossword puzzles, walking her dog Allergies: No Known Allergies Medications: Outpatient Encounter Prescriptions as of 09/07/2015 Medication Sig Dispense Refill albuterol 2.5 mg/3 mL nebulizer solution Take 2.5 mg by nebulization every 6 hours as n eeded. albuterol 90 mcg/puff inhaler Inhale 2 puffs into the lungs every 6 hours as needed for Wheezing or Shortness of Breath. 1 Inhaler PRN albuterol-ipratropium (DUONEB) 2.5-0.5 mg/3 mL SOLN Take 3 mLs by nebulization 4 times daily. CASIE: 12 months Dx: J44.9 360 mL 11 aspirin 81 MG tablet Take 81 mg [...] Pain. HYDROmorphone (DILAUDID) 4 MG tablet Take 8 mg by mouth every 6 hours as [...] break fast). 30 capsule 11 predniSONE (DELTASONE) 10 mg tablet 4 tabs orally daily for 3 days then decrease by 1 t ab every 3 days. Resume 10mg daily when complete. 30 tablet 0 predniSONE (DELTASONE) 5 mg tablet Take 10 mg by mouth Daily. ranitidine (ZANTAC) 150 mg tablet Take 1 tablet by mouth 2 times daily. 60 tablet 3 Respiratory Therapy Supplies [facility] ResMed S9 auto CPAP 5-9 cm H2O. [...] mg by mouth 2 times daily. No facility-administered encounter medications on file as of 09/07/2015. Review of Systems: General: [x]Weight loss/gain (over 10 lbs) []Fever/chills/sweats [x]Night sweats EENT: []Hearing loss []Vision loss/change []Sinus congestion/nasal drainage []Nosebleeds [] Hoarseness Cardiac: []Chest pain []Palpitations/heart racing [x]Swelling of legs/ankles []Waking up at night short of breath []Difficulty sleeping flat Gastrointestinal: []Nausea/vomiting [x]Difficulty swallowing [x]Heartburn/acid reflux []Loss of appetite []A bdominal pain Urologic: []Blood in urine []Frequent urination at night []Burning/painful urination []Difficulty wit h urination Objective BP 148/78 mmHg | Pulse 92 | Resp 20 | Ht 1.575 m (5' 2") | Wt 78.472 kg (173 lb) | BMI 31.6 3 kg/m2 | SpO2 92% RA General Appearance: Alert, cooperative, no distress, appears stated age Head: Normocephalic, without obvious abnormality, atraumatic Eyes: PERRL, conjunctiva clear, no scleral icterus, EOM's intact Ears: Normal TM's, external auditory canals, normal acuity Nose: Nares normal, septum midline, mucosa normal Mouth: No oral lesions or exudate Neck: Supple, symmetrical, no adenopathy Lungs: No accessory muscle use, breath sounds are diminished bilaterally with prolongatio n of the expiratory phase and faint expiratory wheezing, no wheezes, crackles or rhonchi Chest Wall: No deformity Heart: Regular rate and rhythm, no murmur, rub or gallop Abdomen: Soft, non-tender, non-distended Extremities: No cyanosis, clubbing, 1-2+ bilateral lower extremity edema Pulses: Radial pulses 2+ and symmetric Skin: Warm and dry Lymph nodes: Cervical and supraclavicular nodes normal Data: PET/CT scan done in [place] was reviewed and interpreted in clinic today. It shows marked uptake in the right hilar/mediastinal region. Overnight oximetry was done on June 11, 2015 on room air and was reviewed and interprete d in clinic today. It shows she spent 4 minutes with a saturation less than 88%. Lokesh Park MD's notes were reviewed in clinic today. Immunization History Administered Date(s) Administered INFLUENZA, HIGH DOSE SEASONAL (ADULT) 03/02/2015 INFLUENZA, TRIVALENT PRESERVATIVE FREE (PED/ADOL/ADULT) 03/22/2013, 02/15/2014 PNEUMOCOCCAL CONJUGATE 13-VALENT (PCV13) 07/14/2014 PNEUMOCOCCAL POLYSACCHARIDE 23-VALENT (PPSV23) 03/01/2011 Assessment ICD-10-CM ICD-9-CM 1. COPD with acute exacerbation (HCC) J44.1 491.21 Given her diffuse wheezing, I would also raise the possibility of inflammation related to her chemotherapy, which I have read can ca use this. Hopefully her steroids will improve this. She has an appointment next week with he r oncologist and I asked her to discuss with him if she is not improving. She feels like she is better today than a few months ago, but I am uncertain. 2. Essential hypertension I10 401.9 She requested a blood pressure cuff to monitor her bloo d pressure, so order was written and her arm measured today. 3. Recurrent squamous cell carcinoma of lung, right (HCC) C34.91 162.9 On new medication (O pdivo?) for her malignancy. This appears to be recurrent based on review of her PET scan. Plan 1.Prednisone 40mg taper. 2.Doxycyclie 100mg twice daily for 10 days. . 3.Given the risk of pneumonitis on the Opdivo, if she does not improve by the time she sees Dr. Park, she should have a repeat chest CT scan to exclude this given the degree of wheezing heard today, which is unusual for her. (I learned of the high risk of lung toxici ty of this medication after the fact). 4. Continue on Breo and Duonebs. She was advised to call if new pulmonary symptoms were to develop. Return to clinic in 2 months, or sooner with concerns. CC: Davis Ivan MD, Lokesh Park MD Portions of this report were transcribed using voice recognition software. Every effort wa s made to ensure accuracy; however, inadvertent computerized manager math errors may be pre sent. documented in this encounter Plan of Treatment [...] | | | | | [place] [address] | | | | | | [phone] | | | | | | | | +--------+ + + + + | 06/08/ | Office | Physical Medicine | Rocky Santos, | | | 2019 | Visit | and Rehabilitation | MD Nichole Landis | | | | | | [place] | | | | | | [id number] | | | | | | | | +--------+ + + + + | 06/16/ | Appointment | Pulmonology | Eveline Jaffe | | 2019 | | | MD [address]ole [address] | | | | | | [address] | | | | | | [place] [address] | | | | | | [phone] | | | | | | | | +--------+ + + + + | 06/16/ | Office | Pulmonology | Eveline Jaffe | | | 2019 | Visit | | MD Raul [address] | | | | | | [place] | | | | | | [place] [address] | | | | | | [phone] | | | | | | | | +--------+ + + + + | 08/24/ | Office | Cardiology | Anisha Lopez DO | | | 2019 | Visit | | [address] | | | | | | [place] | | | | | | [address] | | | | | | | | +--------+ + + + + documented as of this encounter Procedures + +--------+ + + + | Procedure Name | Priori | Date/Time | Associated Diagnosis | Comments | | | ty | | | | + +--------+ + + + | DIAGNOSTIC REPORT - | | 06/12/2015 | | | | EXTERNAL SCAN | | 12:00 AM | | | | | | PST | | | + +--------+ + + + documented in this encounter Visit Diagnoses + + | Diagnosis | + + | COPD with acute exacerbation (HCC) Obstructive chronic bronchitis with exacerbation | + + | Essential hypertension Unspecified essential hypertension | + + | Recurrent squamous cell carcinoma of lung, right (HCC) | + + documented in this encounter
--- OUTSIDE RECORDS SUMMARY | ~2019-05-05 | XMS | Encounter Summary ---
Demographics + + + | Address | [address] | | | [place] [address] | + + + | Home Phone | | + + + | Preferred Language | Unknown | + + + | Marital Status | | + + + | Scientology Affiliation | Unknown | + + + | Race | Unknown | + + + | Ethnic Group | Unknown | + + + Author + + + | Author | [facility] | | | and [place] | + + + | Organization | [facility] | | | [...] [place] | | | | | [address] | | + + + + + Care Team Providers + +------+ + | Care Inspector Heating And Refrigeration Name | Role | Phone | + +------+ + | Davis Ivan MD | PCP | | + +------+ + Reason for Referral Consultation (Routine) +--------+ + + + + + | Status | Reason | Specialty | Diagnoses / | Referred By | Referred To | | | | | Procedures | Contact | Contact | +--------+ + + + + + | Closed | Specialty | Cardiothoraci | Diagnoses | Tabitha, | | | | Services | c Surgery | Squamous | MD Adelita | | | | Required | | cell | [address] | | | | | | carcinoma | [address] | | | | | | lung (HCC) | [place], | | | | | | | [place] | | | | | | | [address] | | | | | | | Phone: | | | | | | | [phone] | | | | | | | Fax: | | | | | | | [phone] | | +--------+ + + + + + Consultation (Routine) +--------+ + + + + + | Status | Reason | Specialty | Diagnoses / | Referred By | Referred To | | | | | Procedures | Contact | Contact | +--------+ + + + + + | Closed | Specialty | Radiation | Diagnoses | Tabitha, | [facility] | | | Services | Oncology | Squamous | MD Adelita | Radiation | | | Required | | cell | [address] | [address] | | | | | carcinoma | [address] | [address] | | | | | lung (HCC) | [place], | [place], | | | | | | [place] | [place] [address] | | | | | | [address] | Phone: | | | | | | Phone: | [phone] | | | | | | [phone] | Fax: | | | | | | Fax: | [phone] | | | | | | [phone] | | +--------+ + + + + + Encounter Details +--------+ + + + + | Date | Type | Department | Care Team | Description | +--------+ + + + + | 08/17/ Hospital | [facility] | Adelita Lu MD | Squamous cell | | 2014 | Encounter | [facility] | [address] | carcinoma lung (HCC) | | | | ONCOLOGY CLINIC [address] | [place], [place] | (Primary Dx); COPD | | | | [address] [place] | [address] | (chronic obstructive | | | | [place] [address] | [phone] | pulmonary disease); | | | | [phone] | | Rheumatoid | | | | | | arthritis; Spinal | | | | | | stenosis in cervical | | | | | | region | +--------+ + + + + Social [...] + + + | Blood Pressure | 113/65 | 08/17/2013 2:58 PM | | | | | PDT | | + + + + + | Pulse | 65 | 08/17/2013 2:58 PM | | | | | PDT | | + + + + + | Temperature | 36.4 C (97.5 F) | 08/17/2013 2:58 PM | | | | | PDT | | + + + + + | Respiratory Rate | 20 | 08/17/2013 2:58 PM | | | | | PDT | | + + + + + | Oxygen Saturation | 97% | 08/17/2013 2:58 PM | | | | | PDT | | + + + + + | Inhaled Oxygen | - | - | | | Concentration | | | | + + + + + | Weight | 73.4 kg (161 lb 13.1 | 08/17/2013 2:58 PM | | | | oz) | PDT | | + + + + + | Height | 159 cm (5' 2.6") | 08/17/2013 2:58 PM | | | | | PDT | | + + + + + | Body Mass Index | 29.03 | 08/17/2013 2:58 PM | | | | | PDT [...] | + + + +---------+--------+ + | | Take 1 tablet by | | 0 | | | | oxyCODONE-acetaminop | mouth every 3 hours | | | | 4 | | hen (PERCOCET) | as needed. | | | | | | 10-325 mg per tablet | | | | | | + + + +---------+--------+ + | predniSONE | Take 10 mg by mouth | | 0 | | | | (DELTASONE) 5 mg | Daily. | | | | 6 | | tablet | | | | | | + + + +---------+--------+ + | tiZANidine | Take 4 mg by mouth | | 0 | | | | (ZANAFLEX) 4 mg | See Admin | | | | 4 | | tablet | Instructions. 2 tabs | | | | | | | twice daily | | | | | + + + +---------+--------+ + | venlafaxine | Take 37.5 mg by | | 0 | | | | (EFFEXOR) 75 MG | mouth 2 times daily. | | | | 6 | | tablet | | | | | | + + + +---------+--------+ + documented as of this encounter Progress Notes Rhonda Niño RN - 08/17/2013 3:10 PM PDTFatigue: pt states overall she is feeling fa tigued. Onset: several years. Duration: constant Improvement with rest: Weakness: yes, ambulates with a cane. Dizziness: denies Fever: denies fever or chills. Respiratory: SOB: yes Onset: chronic, COPD At rest: none With minimal activity: yes, ambulating down stroud Upon exertion: yes Cough: yes Onset: pt states she has had this cough since she was smoking and is unchanged since. Non-productive/Productive: productive, clear to light green sputum. Denies blood in sputum Appetite: poor. Pt states she does not get hungry. Nausea/Vomiting: denies. Bowels: Constipation: some Laxative use: rare, but she did have an episode of bleeding from a hemorrhoid after takin g stool softener. Edema: pt states her lower extremities were very edematous several months ago but has since resolved. Peripheral neuropathy: pt states she has numbness in her toes on bilateral feet which start ed approximately one year ago. Thrombocytopenia: pt is on several medications that cause her to bruise and bleed easily. Spontaneous bruising/bleeding: pt bruises very easily, has bruises on bilateral arms. Pt s tates when she saw DR. Taylor she had a nose bleed that would not stop and she had to go to the ER to have it packed. Related symptoms: Black or bloody stool: occasional bleeding from hemorrhoid. Red or pink urine: denies Pain: Location: low back, right hip, neck, shoulders Onset: ongoing Duration: constant Factors that aggravate pain: standing, walking Factors that relieve pain: rest Pain ratin-9/10 Medication/intervention: percocet and trazanidine Pain rating after medication/intervention: 4-5/10 Pain rating goal: 4-5/10 Social: pt lives on her own but is accompanied by her significant other, Mirza. 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 Denies history. Denies previous radi ation or chemotherapy. Denies history of chemical exposure. Nurse note: pt had a chest xray ordered by Dr. Ivan over a year ago which showed a whi te area on her lung which was concerning. He referred her to Dr. Taylor who thought it w as a fungus but could not find a medication she could place her on that would not interact w ith the meds she is currently taking. Dr. Taylor has ordered several chest xrays to terence ayala the area but when it started to grow she sent her for a biopsy and PET scan. She was the n referred to Dr. Lu for further evaluation. documented in this encounter Plan of Treatment +--------+ + + + + | Date | Type | Specialty | Care Team | Description | +--------+ + + + + | 05/30/ | Office | Rheumatology | Santosh Sumner, | | | 2018 | Visit | | [address] | | | | | | [facility] | | | | | | [place] [address] | | | | | | [phone] | | | | | | | | +--------+ + + + + | 06/08/ | Office | Physical Medicine | Rocky Santos, | | | 2019 | Visit | and Rehabilitation | MD Nichole [address] | | | | | | [place] | | | | | | [address] | | | | | | | | +--------+ + + + + | 06/16/ | Appointment | Pulmonology | Eveline Jaffe | | | 2019 | | | MD [address]ole [address] | | | | | | [address] [place] | | | | | | [place] [address] | | | | | | [phone] | | | | | | | | +--------+ + + + + | 06/16/ | Office | Pulmonology | Eveline Jaffe | | | 2019 | Visit | | MD Nichole [address] | | | | | | [address] [place] | | | | | | [place] [address] | | | | | | [phone] | | | | | | | | +--------+ + + + + | 08/24/ | Office | Cardiology | LopezAnisha kelseyDO | | | 2019 | Visit | | [address] | | | | | | [place] | | | | | | [address] | | | | | | | | +--------+ + + + + + +------+--------+ + + | Name | Type | Priori | Associated Diagnoses | Order Schedule | | | | ty | | | + +------+--------+ + + | Pulmonary FX Tests | PFT | Today | Squamous cell | Ordered: 08/17/2013 | | (Clinic Performed) | | | carcinoma lung (HCC) | | | | | | COPD (chronic | | | | | | obstructive | | | | | | pulmonary disease) | | + +------+--------+ + + + + +--------+ + + | Name | Type | Priori | Associated Diagnoses | Order Schedule | | | | ty | | | + + +--------+ + + | Ambulatory referral | Outpatient | Routin | Squamous cell | 1 Occurrences | | to Radiation | Referral | e | carcinoma lung (HCC) | starting 08/17/2013 | | Oncology | | | | until 08/17/2014 | + + +--------+ + + | AMB REFERRAL TO PROV | Outpatient | Routin | Squamous cell | Ordered: 08/17/2013 | | THORACIC SURGERY | Referral | e | carcinoma lung (HCC) | | + + +--------+ + + documented as of this encounter Visit Diagnoses + + | Diagnosis | + + | Squamous cell carcinoma lung (HCC) - Primary Malignant neoplasm of bronchus and lung, | | unspecified site | + + | COPD (chronic obstructive pulmonary disease) Chronic airway obstruction, not | | elsewhere classified | + + | Rheumatoid arthritis | + + | Spinal stenosis in cervical region | + + documented in this encounter
--- OUTSIDE RECORDS SUMMARY | ~2019-05-05 | XMS | Encounter Summary ---
Demographics + + + | Address | [address] | | | [place] [address] | + + + | Home Phone | | + + + | Preferred Language | Unknown | + + + | Marital Status | | + + + | Scientology Affiliation | Unknown | + + + | Race | Unknown | + + + | Ethnic Group | Unknown | + + + Author + + + | Author | [facility] | | | and [place] | + + + | Organization | [facility] | | | [...] [place] | | | | | [address] | | + + + + + Care Team Providers + +------+ + | Care Compensation Director Name | Role | Phone | + +------+ + | Davis Ivan MD | PCP | | + +------+ + Reason for Visit +--------+ + | Reason | Comments | +--------+ + | Other | med contraindications | +--------+ + Encounter Details +--------+ + + + + | Date | Type | Department | Care Team | Description | +--------+ + + + + | 04/25/ | Telephone | [facility] [place] | Sara Evans, | Other (med | | 2012 | | PULMONARY [address] | RN | contraindications) | | | | [place], | | | | | | [place] [address] | | | | | | [phone] | | | +--------+ + + + [...] | | | | | [place] [address] | | | | | | [phone] | | | | | | | | +--------+ + + + + | 06/08/ | Office | Physical Medicine | Rocky Santos, | | | 2019 | Visit | and Rehabilitation | MD Vare[address] | | | | | | [place] | | | | | | [address] | | | | | | | | +--------+ + + + + | 06/16/ | Appointment | Pulmonology | Eveline Jaffe | | 2019 | | | MD Nichole [address] | | | | | | [place] | | | | | | [place] [address] | | | | | | [phone] | | | | | | | | +--------+ + + + + | 06/16/ | Office | Pulmonology | Eveline Jaffe | | | 2019 | Visit | | MD Nichole [address] | | | | | | [place] | | | | | | [place] [address] | | | | | | [phone] | | | | | | | | +--------+ + + + + | 08/24/ | Office | Cardiology | Anisha Lopez DO | | | 2019 | Visit | | [address] | | | | | | [place] | | | | | | [id number] | | | | | | | | +--------+ + + + + documented as of this encounter Visit Diagnoses Not on filedocumented in this encounter"
--- OUTSIDE RECORDS SUMMARY | ~2019-05-05 | XMS | Encounter Summary ---
Demographics + + + | Address | [address] | | | [place] [address] | + + + | Home Phone | | + + + | Preferred Language | Unknown | + + + | Marital Status | | + + + | Orthodoxy Affiliation | Unknown | + + + | Race | Unknown | + + + | Ethnic Group | Unknown | + + + Author + + + | Author | [facility] | | | and [place] | + + + | Organization | [facility] | | | and [...] [place] | | | | | [address] | | + + + + + Care Team Providers + +------+ + | Care Psychiatry Physician Name | Role | Phone | + +------+ + | Davis Ivan MD | PCP | | + +------+ + Reason for Visit + + + | Reason | Comments | + + + | Hand Pain | Bilateral Hand Pain Onset x 1+ year (Right worse then Left) | + + + Evaluate & Treat (Routine) +--------+--------+ + + + + | Status | Reason | Specialty | Diagnoses / | Referred By | Referred To | | | | | Procedures | Contact | Contact | +--------+--------+ + + + + | Closed | | Orthopedic | Diagnoses | Moncho, | Randy | | | | Surgery | Rheumatoid | Davis | Giuliano Briones MD | | | | | arthritis | MD [address] | [address] | | | | | with | [address] | [place], | | | | | rheumatoid | [address] | [place] [address] | | | | | factor of | [place], | Phone: | | | | | right hand | [place] | [phone] | | | | | without | [address] | Fax: | | | | | organ or | Phone: | [phone] | | | | | systems | [phone] | | | | | | involvement | Fax: | | | | | | ([facility]) | [phone] | | +--------+--------+ + + + + Encounter Details +--------+---------+ + + + | Date | Type | Department | Care Team | Description | +--------+---------+ + + + | 09/23/ | Office | [facility] [place] | Giuliano Padilla, | Osteoarthritis of | | 2018 | Visit | ORTHOPEDIC SURGERY | [address] | first | | | | [address] | [place] | carpometacarpal | | | | [place] | [id number] | (CMC) joint of one | | | | [address] | | hand (Primary Dx) | | | | [phone] | | | +--------+---------+ + + + [...] + | Weight | 74.4 kg (164 lb) | 09/23/2017 12:50 PM | | | | | PDT | | + + + + + | Height | 157.5 cm (5' 2") | 09/23/2017 12:50 PM | | | | | PDT | | + + + + + | Body Mass Index | 30 | 09/23/2017 12:50 PM | | | | | PDT | | + + + + + documented in this encounter Progress Notes Giuliano Padilla MD - 09/23/2017 1:00 PM PDTPatient is well-known to me status post left f irst CMC arthroplasty in 2014 She has rheumatoid arthritis and has first CMC arthritis of the right hand as well She has had worsening of symptoms since October of last year She has thought long and hard about this and very much wishes to pursue first CMC arthropla sty on the right She is not having any problems with the hand falling asleep or numbness and she has no trig gering of any of her digits She does have multiple arthralgias but nothing as bad as the first CMC joint On physical exam she has obvious subluxation of the first CMC joint and is tender to palpat ion and worse with axial loading She has no hyperextension of the thumb MP joint No triggering noted of any of the digits Sensation intact to light touch all fingers X-rays reviewed by me confirm first CMC arthritis right hand Impression - first CMC arthritis right hand recalcitrant to conservative measures over the course of the last year We again discussed the role of first CMC arthroplasty with the inherent risks and reasonabl e expectations for recovery She understands and very much wishes to pursue this documented in this encounter Plan of Treatment [...] | | | | | | [place] [address] | | | | | | [phone] | | | | | | | | +--------+ + + + + | 06/08/ | Office | Physical Medicine | Rocky Santos, | | | 2019 | Visit | and Rehabilitation | MD Nichole Landis | | | | | | [place] | | | | | | [address] | | | | | | | | +--------+ + + + + | 06/16/ | Appointment | Pulmonology | Eveline Jaffe | | 2019 | | | MD Nichole Carter [address] | | | | | | [address] | | | | | | [place] [address] | | | | | | [phone] | | | | | | | | +--------+ + + + + | 06/16/ | Office | Pulmonology | Eveline Jaffe | | | 2019 | Visit | | MD Raul [address] | | | | | | [place] [address] | | | | | | [place] [address] | | | | | | [phone] | | | | | | | | +--------+ + + + + | 08/24/ | Office | Cardiology | Anisha Lopez DO | | | 2019 | Visit | | [address] | | | | | | [place] | | | | | | [address] | | | | | | | | +--------+ + + + + documented as of this encounter Visit Diagnoses + + | Diagnosis | + + | 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
--- OUTSIDE RECORDS SUMMARY | ~2019-05-05 | XMS | Encounter Summary ---
Demographics + + + | Address | [address] | | | [place] [address] | + + + | Home Phone | | + + + | Preferred Language | Unknown | + + + | Marital Status | | + + + | Hoahaoism Affiliation | Unknown | + + + | Race | Unknown | + + + | Ethnic Group | Unknown | + + + Author + + + | Author | [facility] | | | and [place] | + + + | Organization | [facility] | | | and [...] [place] | | | | | [address] | | + + + + + Care Team Providers + +------+ + | Care Script Supervisor Name | Role | Phone | [...] | needle biopsy) | | | | [place], | | | | | | [place] [address] | | | | | | [phone] | | | +--------+ + + + [...] | | | | | [place] [address] | | | | | | [phone] | | | | | | | | +--------+ + + + + | 06/08/ | Office | Physical Medicine | Rocky Santos, | | | 2019 | Visit | and Rehabilitation | MD Nichole Landis | | | | | | [place] | | | | | | [address] | | | | | | | | +--------+ + + + + | 06/16/ | Appointment | Pulmonology | Eveline Jaffe | | | 2019 | | | MD Nichole Carter [address] | | | | | | [address] | | | | | | [place] [address] | | | | | | [phone] | | | | | | | | +--------+ + + + + | 06/16/ | Office | Pulmonology | Eveline Jaffe | | | 2019 | Visit | | MD Nichole Carter | | | | | | [address] | | | | | | [place] [address] | | | | | | [phone] | | | | | | | | +--------+ + + + + | 08/24/ | Office | Cardiology | Anisha Lopez DO | | | 2019 | Visit | | [address] | | | | | | [place] | | | | | | [id number] | | | | | | | | +--------+ + + + + documented as of this encounter Visit Diagnoses Not on filedocumented in this encounter"
--- OUTSIDE RECORDS SUMMARY | ~2019-05-05 | XMS | Encounter Summary ---
Demographics + + + | Address | [address] | | | [place] [address] | + + + | Home Phone [...] [place] | | | | | [address] | | + + + + + Care Team Providers + +------+ + | Care Graphics Programmer Name | Role | Phone | + +------+ + | Davis Ivan MD | PCP | | + +------+ + Reason for Visit + + + | Reason | Comments | + + + | Follow-up | | + + + Auth/Cert +--------+--------+ + + + + | [...] | +--------+ + + + + | 09/12/ | Hospital | [facility] | Adelita Lu MD | Recurrent squamous | | 2015 | Encounter | [facility] | [address] | cell carcinoma of | | | | [facility] [address] | [place], [place] | lung, right (HCC) | | | | [address] [place] | [address] | (Primary Dx) | | | | [facility] [place] [address] | [phone] | | | | | [phone] | | | +--------+ + + + [...] + + + | Blood Pressure | 141/76 | 09/12/2014 9:31 AM | | | | | PDT | | + + + + + | Pulse | 85 | 09/12/2014 9:31 AM | | | | | PDT | | + + + + + | Temperature | 37.2 C (99 F) | 09/12/2014 9:31 AM | | | | | PDT | | + + + + + | Respiratory Rate | 22 | 09/12/2014 9:31 AM | | | | | PDT | | + + + + + | Oxygen Saturation | 96% | 09/12/2014 9:31 AM | | | | | PDT | | + + + + + | Inhaled Oxygen | - | - | | | Concentration | | | | + + + + + | Weight | 68.1 kg (150 lb 2.1 | 09/12/2014 9:31 AM | | | | oz) | PDT | | + + + + + | Height | - | - | | + + + + + | Body Mass Index | 27.46 | 09/07/2014 1:56 PM | | | | | PDT [...] | Take 15 mLs by mouth | 118 mL | 0 | 09/13/19 | | | HYDROcodone-acetamin | 4 times daily as | | | 15 | 5 | | ophen (HYCET) | needed for Pain or | | | | | | 7.5-325 mg/15 mL | Cough for up to 10 | | | | | | liquid | days. | | | | | + [...] + + + +---------+ + + | mirabegron | Take 25 mg by mouth | | 0 | | | | (MYRBETRIQ) 25 mg ER | Daily. | | | | 5 | | tablet | | | | | | + + + +---------+ + + | omeprazole | Take 20 mg by mouth | | 0 | | | | (PRILOSEC) 20 mg | every morning | | | | 5 | | capsule | (before breakfast). | | | | [...] + + + +---------+ + + | sucralfate | Take 1 tablet by | 90 | 0 | 09/02/19 | | | (CARAFATE) 1 g | mouth 3 times daily | tablet | | 15 | 5 | | tablet | as needed for up to | | | | | | | 30 doses. Crush 1 | | | | | | | tablet in 2 | | | | | | | teaspoons of liquid | | | | | | | (water, etc.) | | | | | + + [...] encounter Progress Notes Adelita Lu MD - 09/12/2014 9:34 AM PDT .[facility] Hem-Onc Progress Note [facility] Patient name:Thea Carmona : 1945 Age: 69 y.o. CSN: [id number] Date of Service: 09/12/2014 Identifying Statement: Thea Carmona is a 69 y.o. female from [facility] with clinical stage II, non-small cell lung [...] lewis 2.CT-guided biopsy by interventional radiology at [facility] of the right lung massshows squamous [...] by Dr. Mace , thoracic surgeon at [facility] for consideration of broncho scopy, right thoracoscopy, [...] cell carcinoma Chief Complaint/HPI: Here for cycle #5 carboplatin and Taxol given concurrently with radiat ion for recurrence of lung cancer in the right hilar node REVIEW OF SYSTEMS Constitution: Energy remains low. Denies high fevers, shaking chills, anorexia, nausea, vo miting, weight loss, or night sweats. Appetite without changes. Ear, Nose, Mouth, Throat: Denies odynophagia, dysphagia, or tinnitus. Cardiovascular: Denies shortness of breath, chest pain, palpitations or orthopnea. Dyspnea on exertion reported. Respiratory: Denies hemoptysis. Reports cough and green colored sputum production. Gastrointestinal: Denies abdominal pain, constipation, diarrhea, melena, or bright red bloo d per rectum. Genitourinary: Denies hematuria or dysuria. Musculoskeletal: Joint tenderness in hands, neck, wrists, knees and back reported. Neurologic: Denies visual changes or tingling of the extremities.Mild short term headaches reported. Numbness in toes reported. Endocrine: Denies heat/cold intolerance. Lower leg and feet swelling reported. Hematologic: Denies spontaneous bleeding. Bruises easily. Integumentary: Denies rash, wounds or other skin concerns. Pain: Joint pain as described is as high as 5 and as low as zero on 0 to 10 pain scale. Go al <4. Note:Here for treatment today. My chart: declines. Past Medical History: Past Medical History Diagnosis Date COPD (chronic obstructive pulmonary disease) ([facility]) on albuterol Spondylolisthesis of cervical region Spinal stenosis has tried cortisone injections Osteoporosis Depression Pneumonia 2009 hospitalized 5 days Rheumatoid arthritis(714.0) ([facility]) [facility]one [facility] Hyperlipidemia on simvastatin Hypertension on clonidine and lisinopril Hypothyroidism GERD (gastroesophageal reflux disease) Stroke ([facility]) 2006 Stroke ([facility]) 2007 Squamous cell carcinoma of lung ([facility]) 07/2013 right lower lobe Sputum culture positive for Scopulariopsis species Recurrent squamous cell carcinoma of lung ([facility]) 07/11/[address] and RUL nodule MARCE (obstructive sleep apnea) AHI 11.6 no CPAP Full dentures upper & lower Upper GI bleed 06/2014 admitted [place] Allergies: No Known Allergies Medications : Patient's [...] mg by mouth Daily. RESPIRATORY THERAPY SUPPLIES [facility] ResMed S9 auto CPAP 5-9 cm H2O. Heater and Humidifier . All necessary supplies. AHI 11.6. Diagnosis Code(s)327.23, also has co morbid hypertension , history of stroke. Length of Need 99 months. Please send order to [facility]. RESPIRATORY THERAPY SUPPLIES [facility] Respironics autotitrating CPAP at 5-9 cm H2O for life time. Mask, headgear, chin strap, hoses, humidifier chamber and filters. Dx: 327.23 SIMVASTATIN (ZOCOR) 40 MG TABLET Take 40 mg by mouth nightly. VENLAFAXINE (EFFEXOR) 75 MG TABLET Take 37.5 mg by mouth 2 times daily. Modified Medications No medications on file Discontinued Medications No medications on file Physical Exam: Vitals:Temp: [37.2 C (99 F)] 37.2 C (99 F) Pulse: [85] 85 Resp: [22] 22 BP: (141)/(76) 141/76 mmHg Gen.: Performance status ECoG 1 . Well nourished, appears well not in apparent distress.. Chest: Clear to auscultation. No wheezes present Extremities: Left lower extremity edema present Musculoskeletal: Patient is in a wheelchair today LABORATORY DATA: Recent Results (from the past 24 hour(s)) COMPREHENSIVE METABOLIC PANEL Result Value Range NA 136 136-149 mmol/L K 3.6 3.5-5.1 mmol/L CL 106 98-109 mmol/L CO2 26 24-31 mmol/L ANION GAP 4 3-16 mmol/L GLUCOSE 89 70-109 mg/dL BUN 20 (*) 7-18 mg/dL Creatinine, Serum/Plasma 0.79 0.60-1.30 mg/dL eGFR if not >60 >=60 mL/min/1.73m2 CALCIUM 8.7 8.3-10.5 mg/dL ALBUMIN 3.2 3.2-5.0 g/dL BILIRUBIN TOTAL 0.6 0.1-1.5 mg/dL Total protein 5.9 (*) 6.0-7.8 g/dL AST 25 10-42 U/L ALT 22 6-45 U/L ALK PHOS 58 40-110 U/L GLOBULIN 2.7 Albumin/Globulin ratio 1.2 BUN/CREA 25.3 CBC WITH DIFFERENTIAL Result Value Range WBC 2.5 (*) 4.0-11.0 K/uL RBC 3.19 (*) 3.70-5.20 M/uL Hgb 10.2 (*) 11.5-16.0 g/dL Hct 31.6 (*) 34.0-47.0 % MCV 98.8 83.0-101.0 fL MCH 31.9 28.0-35.0 pg MCHC 32.3 32.0-36.0 g/dL RDW 24.7 (*) <15.0 % Platelet Count 101 (*) 140-440 K/uL MPV 8.4 % Neutrophils 55.8 45.0-82.0 % % Lymphocytes 30.2 20.0-45.0 % % Monocytes 11.4 4.0-12.0 % % Eosinophils 1.9 0.0-5.0 % % Basophils 0.7 0.0-1.0 % Absolute Neutrophils 1.40 (*) 1.80-8.50 K/uL Absolute Lymphocytes 0.70 0.60-3.20 K/uL Absolute Monocytes 0.30 0.00-1.00 K/uL Absolute Eosinophils 0.00 0.00-0.40 K/uL Absolute Basophils 0.00 0.00-0.10 K/uL Imaging: PET/CT scan June 2014: [facility]: Necrotic right lung lesion wit h SUV of 2.7 and right hilar lymph node with SUV of 12.7 IMPRESSION: Stage II squamous non-small cell right lung cancer status post lobectomy August 2013 2. Recurrence of non-small cell lung cancer in June 2014 3. Comorbidities with rheumatoid arthritis on methotrexate, history of stroke in 2006 and 2007 on aspirin and Plavix 4. Myelosuppression secondary to chemotherapy PLAN: Continue with last cycle of chemotherapy with carboplatin AUC of 2 and paclitaxel 45 mg/m Follow-up in 2 weeks She will hold the methotrexate because of myelosuppression Discussion about 2 rounds of systemic chemotherapy after completion of concurrent chemoradi ation Images of most recent CT scan was reviewed Left lower extremity ultrasound is negative for DVT Total time face to face discussion with the patient and family was 25 minutes, more than 5 0% of the time was spent counseling and coordination of care. Portions of this chart may have been created with [employer] voice recognition software. Occasi onal wrong-word or [...] | 2018 | Visit | | [address] | | | | | | [facility] | | | | | | [place] [address] | | | | | | [phone] | | | | | | | | +--------+ + + + + | 06/08/ | Office | Physical Medicine | Rocky Santos, | | | 2019 | Visit | and Rehabilitation | MD Nichole Hinds [address] | | | | | | [place] | | | | | | [address] | | | | | | | | +--------+ + + + + | 06/16/ | Appointment | Pulmonology | Eveline Jaffe | | 2019 | | | MD Nichole Carter | | | | | | [address] [place] | | | | | | [place] [address] | | | | | | [phone] | | | | | | | | +--------+ + + + + | 06/16/ | Office | Pulmonology | Eveline Jaffe | | | 2019 | Visit | | MD Nichole Carter | | | | | | [address] [place] | | | | | | [place] [address] | | | | | | [phone] | | | | | | | | +--------+ + + + + | 08/24/ | Office | Cardiology | Anisha Lopez DO | | | 2020 | Visit | | [address] | | | | | | [place] | | | | | | [address] | | | | | | | | +--------+ + + + + documented as of this encounter Visit Diagnoses + + | Diagnosis | + + | Recurrent squamous cell carcinoma of lung, right (HCC) - Primary | + + documented in this encounter"
--- OUTSIDE RECORDS SUMMARY | ~2019-05-05 | XMS | Encounter Summary ---
Demographics + + + | Address | [address] | | | [place] [address] | + + + | Home Phone | | + + + | Preferred Language | Unknown | + + + | Marital Status | | + + + | Mu-Ism Affiliation | Unknown | + + + | Race | Unknown | + + + | Ethnic Group | Unknown | + + + Author + + + | Author | [facility] | | | and [place] | + + + | Organization | [facility] | | [...] [place] | | | | | [address] | | + + + + + Care Team Providers + +------+ + | Care Explosive Technician Name | Role | Phone | + +------+ + | Davis Ivan MD | PCP | | + +------+ + Reason for Visit +--------+ + | Reason | Comments | +--------+ + | Other | | +--------+ + Encounter Details +--------+ + + + + | Date | Type | Department | Care Team | Description | +--------+ + + + + | 10/07/ | Telephone | [facility] | Melony Dhaliwal, | Other | | 2013 | | [facility] | RN | | | | | [facility] [address] | | | | | | [address] | | | | | | [place] [address] | | | | | | [phone] | | | +--------+ + + + [...] | | | | [facility] | | | | | | [place] [address] | | | | | | [phone] | | | | | | | | +--------+ + + + + | 06/08/ | Office | Physical Medicine | Rocky Santos, | | | 2019 | Visit | and Rehabilitation | [address] | | | | | | [place] | | | | | | [address] | | | | | | | | +--------+ + + + + | 06/16/ | Appointment | Pulmonology | Eveline Jaffe | | | 2019 | | | MD Nichole Carter [address] | | | | | | [address] [place] | | | | | | [place], [place] [address] | | | | | | [phone] | | | | | | | | +--------+ + + + + | 06/16/ | Office | Pulmonology | Eveline Jaffe | | | 2019 | Visit | | MD Nichole Carter [address] | | | | | | [address] [place] | | | | | | [place] [address] | | | | | | [phone] | | | | | | | | +--------+ + + + + | 08/24/ | Office | Cardiology | Anisha Lopez DO | | | 2019 | Visit | | [address] | | | | | | [place] | | | | | | [address] | | | | | | | | +--------+ + + + + documented as of this encounter Visit Diagnoses Not on filedocumented in this encounter"
--- OUTSIDE RECORDS SUMMARY | ~2019-05-05 | XMS | Encounter Summary ---
Demographics + + + | Address | [address] | | | [place] [address] | + + + | Home Phone | | + + + | Preferred Language | Unknown | + + + | Marital Status | | + + + | Hindu Affiliation | Unknown | + + + | Race | Unknown | + + + | Ethnic Group | Unknown | + + + Author + + + | Author | [facility] | | | and [place] | + + + | Organization | [facility] | | | and [...] [place] | | | | | [address] | | + + + + + Care Team Providers + +------+ + | Care Wood Drill Operator Name | Role | Phone | + +------+ + | Caitlin Chino MD | PCP | | + +------+ + Reason for Referral Service/Procedure (Routine) +--------+ + + + + + | Status | Reason | Specialty | Diagnoses / | Referred By | Referred To | | | | | Procedures | Contact | Contact | +--------+ + + + + + | Closed | Specialty | Manager Lpn | Diagnoses | Taisha, | Nancy, | | | Services | | Rheumatoid | Santosh, | GERDA Rhoades | | | Required | | arthritis, | PA-Avila [address] | | | | | involving | [place] [address] | | | | | unspecified | PLACE | [place], [place] | | | | | [facility], | [facility], | [address] Phone: | | | | | unspecified | [place] [address] | [phone] | | | | | rheumatoid | Phone: | | | | | | factor | [phone] | | | | | | presence | Fax: | | | | | | ([facility]) | [phone] | | +--------+ + + + + + Reason for Visit + + + | Reason | Comments | + + + | Rheumatoid Arthritis | | + + + Evaluate & Treat (Routine) + +--------+ + + + + | Status | Reason | Specialty | Diagnoses / | Referred By | Referred To | | | | | Procedures | Contact | Contact | + +--------+ + + + + | Authorized | | | Diagnoses | Tim Ivan | | | | | Rheumatoid | Davis | Rheumatology | | | | | arthritis, | MD [address] | [address] | | | | | unspecified | [address] | [place] | | | | | ([facility]), | [address] | [place], [place] | | | | | Billed out | [place], | [address] | | | | | for M13.00 | [place] | Phone: | | | | | | [address] | [phone] | | | | | | Phone: | Fax: | | | | | | [phone] | [phone] | | | | | | Fax: | | | | | | | [phone] | | + +--------+ + + + + Encounter Details +--------+---------+ + + + | Date | Type | Department | Care Team | Description | +--------+---------+ + + + | 02/22/ | Office | [facility] | Santosh Sumner, | Rheumatoid | | 2019 | Visit | RHEUMATOLOGY [address] | PA-C [address] | arthritis, involving | | | | [facility] | [facility] | unspecified site, | | | | [place], [place] | [place] [address] | unspecified | | | | [address] | [phone] | rheumatoid factor | | | | [phone] | | presence (HCC) | | | | | | (Primary Dx); High | | | | | | risk medication use | +--------+---------+ + + + Social History [...] + + + | Blood Pressure | 121/75 | 02/22/2019 1:40 PM | | | | | PDT | | + + + + + | Pulse | 94 | 02/22/2019 1:40 PM | | | | | PDT | | + + + + + | Temperature | 36.4 C (97.6 F) | 02/22/2019 1:40 PM | | | | | PDT [...] + + + + | Weight | 66.5 kg (146 lb 9.6 | 02/22/2019 1:40 PM | | | | oz) | PDT | | + + + + + | Height | - | - | | + + + + + | Body Mass Index | 26.81 | 12/30/2018 2:03 PM | | | | | PDT [...] of this encounter Patient Instructions Patient Instructions Duyen Gonsalves, Pattern Maker - 02/22/2019 1:50 PM PDTWe hop e that you have experienced exceptional care today and that you found our service to be cour teous and helpful. ? If you have any questions/concerns or need medication refills you can send us a message/r equest using [employer] or by calling our office at [phone]. o If you would like to reach my medical front desk coordinator, Eileen Gonsalves please call [phone] Ext: [phone] ? If you are unable to reach a nurse during clinic hours, please leave a detailed message. We check our messages often and return calls in a timely manner during clinic hours. ? Orders for labs or imaging: Please remember that Santosh Sumner PA-C will only call you i f something of concern needs to be addressed, otherwise all result will be discussed at your next office visit. You can also look at your results on [employer]. If you are experiencing an emergency, please call 911 documented in this encounter Progress Notes Santosh Sumner PA - 02/22/2019 1:50 PM PDTFormatting of this note might be different fro m the original. Subjective: Patient ID: Thea Carmona is a 73 y.o. female. Rheumatological History: Thea Carmonais a 72 y.o.femalewith complex medical problems, history of lung cance r s/p lobectomy, radaition therapy with recurrence on oral chemotherapy followed by Dr. Jayden brown, oncologist. History of neck, back surgery, underwent bilateral 1st MCP joint replac ement. According to pt she was diagnosed with RA and OA for 30 years. She said she has been taking PDN 10 mg for 30 years and has been on MTX on and off for RA. recently MTX was stopped due to recurrent pneumonias. She was referred here for further evaluation. Pt complaints of pain in her hands, wrist and feet. She feels like the pain is in her bones . She denies having prolonged morning stiffness or joint swelling. She has noticed knoby knu ckles at PIP and DIP joints. She also has noticed that her finger tips are turning down. Bertram n is worse with activities and better with rest. She has been off of pain medications and wo uld like to restart. She has been off of MTX for about 4 weeks but does not have any flare-up. She is currently on PDN 10 mg for COPD. 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 . She underwent a r ight lower lobectomy with lymph node dissection. She developed a metachronous primary that w as treated by concurrent chemoradiotherapy using Taxol/carboplatin and irradiation. Posttrea tment PET/CT and CT scans were stable to improving up to March 2015; however, restaging PE T/CT recently performed in June demonstrates an avid lymph node in the right hilum. She i s currently scheduled for chemotherapy under the direction of Dr. Park. She is currently on oral chemotherapy treatment. Initially seen by: Dr. Stella MD on: 03/10/2018 Pertinent Serology: Positive Rf Pertinent Imaging: None Tried and failed oral DMARDs include: None Tried and failed biologic DMARDs include: None Tried and failed NSAIDs: None History of Present Illness Visit Diagnosis: Rheumatoid Arthritis Appointment type: Follow up Interval History: 07/20/2018: she is on MTX 15 mg/week for about 2 weeks. Has noticed mild improvement but still has pain in her fingers. She received steroid injections in her MCP bryan ints. She wants to know if she can increase the MTX dose. She recently had a PET scan which did not show any active lesions and is on oral Chemothera py and PDN 10 mg/day. Interval History: 10/28/2018: The patient states that she is doing well on 6 tabs of her Me thotrexate and she states that she was on 4 tabs and went up to 6 tabs on her last visit and after going up on the amount she has noticed a sigificant improvement in her joint pain. Fernando mares does use prednisone. She was found to have afib and is on a new medication in which she do es not remember the same. She states otherwise she has no concerns and is doing better Last Seen On: 10/28/2018 by Santosh Sumner PA-C Any changes in overall health since last visit: No Current rheumatological medications: 15mg Methotrexate weekly with 1mg Folic Acid daily Current chief complaint: The patient states that she has had some more aches in general dave t are worse in the evening and better with rest. She states her shoulders, back and knees cintron ve been aching. She denies any significant swelling or stiffness. She states that in the mor bhaskar she is doing okay and that its as she gets going and or the cold hurts her. Rating Scale: 2 Morning stiffness lasting: <30 Minutes Quality: Ache Severity: Mild Duration: 1-3 months Timing: Evening>Morning Aggravated by: Activity Relieved by: Medication and rest The patient denies any signs of: infection, fever and abdominal pain The following portions of the patient's history were reviewed and updated as appropriate an d is available with the EMR: allergies, current medications, past family history, past medic al history, past social history, past surgical history and problem list. Review of Systems Constitutional: Positive for fatigue. Negative for fever. HENT: Negative for mouth sores. Eyes: Negative for pain and redness. Respiratory: Positive for shortness of breath. Negative for cough. Cardiovascular: Negative for chest pain. Gastrointestinal: Negative for abdominal pain and blood in stool. Genitourinary: Negative for dysuria and hematuria. Musculoskeletal: Positive for arthralgias. Negative for joint swelling. Skin: Negative for rash. Neurological: Positive for headaches. Negative for numbness. Psychiatric/Behavioral: The patient is not nervous/anxious. ISantosh PA-C, reviewed the above ROS. Past Medical History: Diagnosis Date Acid reflux disease Arthritis COPD (chronic obstructive pulmonary disease) (HCC) on albuterol Depression HONG (dyspnea on exertion) Full dentures upper & lower GERD (gastroesophageal reflux disease) Hyperlipidemia on simvastatin Hypertension on clonidine and lisinopril Hypothyroidism Obesity MARCE (obstructive sleep apnea) no CPAP Osteoporosis Pneumonia 2008 hospitalized 5 days 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 Lewis, [place] Spinal stenosis has tried cortisone injections Spondylolisthesis of cervical region Sputum culture positive for Scopulariopsis species Squamous cell carcinoma of lung (HCC) 07/2013 right lower lobe Stroke (HCC) 2006 Stroke (HCC) 2007 left sided weakness Upper GI bleed 06/[address] [facility] [facility] Wears dentures Current Outpatient Medications: afatinib (GILOTRIF) 30 mg tablet, Take 30 mg by mouth every morning (before breakfast) ., Disp: , Rfl: albuterol-ipratropium (DUONEB) 2.5-0.5 mg/3 mL SOLN, Take 3 mLs by nebulization 4 time s daily. CASIE: 12 months Dx: J44.9, Disp: 360 mL, Rfl: 3 amoxicillin (AMOXIL) 250 mg capsule, Take 250 mg by mouth 3 times daily., Disp: , Rfl: BREO ELLIPTA 100-25 MCG/INH inhaler, Inhale 1 puff into the lungs Daily., Disp: , Rfl: 0 Carboxymethylcellulose Sodium (REFRESH TEARS OP), Apply to eye., Disp: , Rfl: cholecalciferol (VITAMIN D-3) 1,000 units capsule, Take 2,000 Units by mouth Daily., D isp: , Rfl: dilTIAZem (CARDIZEM CD) 180 mg 24 hr capsule, Take 1 capsule by mouth Daily., Disp: 30 capsule, Rfl: 0 doxycycline (MONODOX) 100 mg capsule, take 1 capsule by mouth twice a day, Disp: , Rfl : 0 doxycycline (VIBRAMYCIN) 100 mg tablet, Take 100 mg by mouth 2 (two) times daily., Dis p: , Rfl: DULoxetine (CYMBALTA) [address] capsule, Take 30 mg by mouth daily., Disp: , Rfl: DULoxetine (CYMBALTA) [address] capsule, Take 1 capsule by mouth Daily., Disp: , Rfl: 0 DULoxetine (CYMBALTA) [address] capsule, Take 60 mg by mouth daily., Disp: , Rfl: folic acid 1 mg tablet, Take 1 mg by mouth Daily., Disp: , Rfl: 0 furosemide (LASIX) 20 mg tablet, Take 1 tablet by mouth Daily., Disp: , Rfl: 0 levothyroxine (SYNTHROID) 112 mcg tablet, Take 1 tablet by mouth Daily., Disp: , Rfl: 0 loperamide (IMODIUM) 2 mg capsule, Take 2 mg by mouth as needed., Disp: , Rfl: 0 methotrexate 2.5 mg tablet, take 8 tablets by mouth every week, Disp: 32 tablet, Rfl: 0 metoprolol succinate (TOPROL-XL) 25 mg 24 hr tablet, Take 1 tablet by mouth daily., Di sp: , Rfl: NARCAN 4 MG/0.1ML, instill 1 spray in 1 NOSTRIL if needed for opioid overdose may re.. . (REFER TO PRESCRIPTION NOTES)., Disp: , Rfl: 0 pantoprazole (PROTONIX) 40 mg tablet, Take 40 mg by mouth 2 times daily (before meals) ., Disp: , Rfl: 0 potassium chloride (KLOR-CON M20) 20 mEq ER tablet, Take 20 mEq by mouth 2 (two) times daily with meals., Disp: , Rfl: predniSONE (DELTASONE) 5 mg tablet, take 2 tablets by mouth every morning, Disp: , Rfl : 0 pseudoePHEDrine (SUDAFED) 60 MG tablet, Take 60 mg by mouth every 4 (four) hours as ne eded for Congestion., Disp: , Rfl: Respiratory Therapy Supplies (NEBULIZER COMPRESSOR) KIT, Use as directed with nebulize r medication. Dx: J43.1 CASIE: 99 months, Disp: 1 each, Rfl: 0 roflumilast (DALIRESP) 500 mcg tablet, Take 500 mcg by mouth daily., Disp: , Rfl: simvastatin (ZOCOR) 40 mg tablet, Take 40 mg by mouth nightly., Disp: , Rfl: SUDOGEST 60 MG tablet, take 1 tablet by mouth three times a day if needed for sinus co ngestion, Disp: , Rfl: 0 tiotropium (SPIRIVA) 18 mcg inhalation capsule, Inhale 18 mcg into the lungs Daily., D isp: , Rfl: TURMERIC PO, Take by mouth., Disp: , Rfl: warfarin (COUMADIN) 5 mg tablet, Take 5 mg by mouth Daily. 5MG 3 times weekly and 4 1/ 2 tablet other days., Disp: , Rfl: Family History Problem Relation Age of Onset COPD Sister Tobacco Use Sister quit 1 year ago Cancer Father stomach Lung cancer Brother Tobacco Use Brother Alcohol abuse Brother Social History Socioeconomic History Marital status: Spouse name: Not on file Number of children: Not on file Years of education: Not on file Highest education level: Not on file Social Needs Financial resource strain: Not on file Food insecurity - worry: Not on file Food insecurity - inability: Not on file Transportation needs - medical: Not on file Transportation needs - non-medical: Not on file Occupational History 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 Tobacco Use Smoking status: Former Smoker Packs/day: 1.00 Years: 50.00 Pack years: 50.00 Types: Cigarettes Start date: 03/08/1952 Last attempt to quit: 07/24/2016 Years since quittin.5 Smokeless tobacco: Never Used Substance and Sexual Activity Alcohol use: Not Currently Alcohol/week: 0.0 oz Comment: pt states she was an alcoholic for 40 years but quit in 05/2012 Drug use: Not Currently Comment: marijuana in the remote past Sexual activity: Not on file Other Topics Concern Not on file Social History Narrative Lives: in [place] With: alone Grew up: in [place] Has previously lived in: [place] Exposure to toxic chemicals: no Exposure to asbestos: no Exposure to tuberculosis: no Has had a PPD or Quantiferon before: no Has pets at home: cat and a dog Has ever owned birds: yes, 5 years ago Other animal exposures: no Hobbies: used to jaja, crossword puzzles, walking her dog No Known Allergies Objective: BP 121/75 | Pulse 94 | Temp 36.4 C (97.6 F) (Temporal) | Wt 66.5 kg (146 lb 9.6 oz) | BMI 26.81 kg/m Physical Exam Constitutional: She is oriented to person, place, and time. She appears well-developed and well-nourished. No distress. HENT: Head: Normocephalic and atraumatic. Nose: Nose normal. Eyes: Pupils are equal, round, and reactive to light. Conjunctivae and EOM are normal. Righ t eye exhibits no discharge. Left eye exhibits no discharge. Neck: Normal range of motion. Cardiovascular: Normal rate and regular rhythm. Pulmonary/Chest: Effort normal. No respiratory distress. She has no wheezes. She has no rho nchi. She has no rales. Musculoskeletal: MCPs: Negative PIPs: Carlos nodes DIPS: Heberden's nodes CMC: Squaring bilaterally Palms: Negative Hands: Negative Wrists: Negative Fists: Able to make fist bilaterally Elbows: Negative Shoulders: Negative Sternoclavicular: Negative Knees: Crepitus Ankles: Negative MTPs: Negative Spine: Negative with satisfactory ROM Neurological: She is alert and oriented to person, place, and time. Skin: Skin is warm and dry. Bruising (hands) noted. No rash noted. Psychiatric: She has a normal mood and affect. Her behavior is normal. Thought content norm al. Lab Data: Lab Results Component Value Date WBC 12.90 (H) 10/28/2018 WBC 10.3 09/28/2018 HGB 12.5 10/28/2018 HGB 11.3 (L) 09/28/2018 HCT 36.5 09/28/2018 MCV 91.9 10/28/2018 MCV 94.1 09/28/2018 MCH 29.5 10/28/2018 MCH 29.1 09/28/2018 MCHC 32.1 10/28/2018 MCHC 31.0 (L) 09/28/2018 PLT 305 09/28/2018 MPV 8.0 10/28/2018 MPV 9.0 09/28/2018 Lab Results Component Value Date NA 142 12/09/2018 K 3.6 12/09/2018 CL 106 12/09/2018 CO2 29 12/09/2018 ANIONGAP 7 12/09/2018 GLU 109 (H) 12/09/2018 CALCIUM 9.7 12/09/2018 BILITOT 0.4 10/28/2018 ALT 14 10/28/2018 TOTALPROTEIN 6.3 09/28/2018 ALBUMIN 3.2 (L) 10/28/2018 Lab Results Component Value Date CRP 3.1 (H) 10/28/2018 No results found for: ESR Imaging: No results found for this or any previous visit (from the past 360 hour(s)). Laboratory results were reviewed in [facility] as well as chart notes and imaging from other prov ider(s) since their last rheumatology clinic visit, Please see the EMR for further detail. Assessment and Plan: Visit Diagnoses and Associated Orders: Problem List Items Addressed This Visit Musculoskeletal Rheumatoid arthritis - Primary The patient returns to the clinic for a follow up appointment. She is on 15mg Methotrexat e weekly with 1mg Folic Acid daily and doing well. She is requesting a referral for acupunct antonio which I sent in. She states the last couple weeks she has noticed a few more aches but s tates it changes when the weather got colder. She states otherwise her joint pain and stiff ness are significant better. We will make no changes and see her back in 3 months and update blood work. Discussed risks and benefits of this medication. Patient understands he/she will also be ta kenya folic acid 1 mg daily. I explained that methotrexate can cause mouth sores, hair loss, and fatigue and to call if there was trouble tolerating it. Patient was advised that methotr exate can cause bone marrow toxicity and that blood would need to be checked 4 weeks after s tarting the medication. Liver toxicity is also possible so blood would need to be monitored at least every 3 months for as long as the medicine was taken. Discussed that this a pregnan cy category D medication for women and may produce reversible infertility in men. Relevant Orders Ambulatory referral for Acupuncture Other High risk medication use The patient was counseled regarding medication compliance and routine laboratory monitori ng due to the potential toxicities with rheumatological medications such as but not limited to; hematologic toxicity, hepatotoxicity, renal dysfunction and increased risks for infectio ns. Basic Labs Monitored (CBC, CMP, ESR and CRP): Ordered today during clinic visit These labs are routinely ordered due to high risk medication the patient is currently takin g - Monitored for cytopenias, liver toxicity, renal dysfunction and disease activity. Hepatitis Panel: Negative - 07/2018 This will be checked every 5 years based on the patients risk factors or at time of biologi c drug change. Chest XR: Satisfactory - 2019 This will be checked within 1 year of initiation of rheumatological therapy. There is evidence of COPD Risks and benefits of a treatment plan were explained to patient. Patient will follow up with their primary care physician in regards to non-rheumatological symptoms listed under review of systems. Patient was advised to contact our office if there are any change in their symptoms. This is a patient with multiple medical problems that require considerable time and reflect ion in order to properly evaluate and manage. Avoidance of adverse drug interactions and opt imization of treatment/therapy is the primary goal. Complex analysis and decision making was involved in today's visit. Procedure Documentation: Procedures documented in this encounter Plan of Treatment [...] | | | | | [place] [address] | | | | | | [phone] | | | | | | | | +--------+ + + + + | 06/08/ | Office | Physical Medicine | Rocky Santos, | | | 2019 | Visit | and Rehabilitation | MD Varela [address] | | | | | | [place] | | | | | | [address] | | | | | | | | +--------+ + + + + | 06/16/ | Appointment | Pulmonology | Eveline Jaffe | | | 2019 | | | MD [address]ole [address] | | | | | | [address] [place] | | | | | | [place] [address] | | | | | | [phone] | | | | | | | | +--------+ + + + + | 06/16/ | Office | Pulmonology | Eveline Jaffe | | | 2019 | Visit | | MD Nichole [address] | | | | | | [address] [place] | | | | | | [place] [address] | | | | | | [phone] | | | | | | | | +--------+ + + + + | 08/24/ | Office | Cardiology | Anisha Lopez DO | | | 2019 | Visit | | [address] | | | | | | [place] | | | | | | [address] | | | | | | | | +--------+ + + + + + + +--------+ + + | Name | Type | Priori | Associated Diagnoses | Order Schedule | | | | ty | | | + + +--------+ + + | Ambulatory referral | Outpatient | Routin | Rheumatoid | Ordered: 02/22/2019 | | for Acupuncture | Referral | e | arthritis, involving | | | | | | unspecified site, | | | | | | unspecified | | | | | | rheumatoid factor | | | | | | presence (HCC) | | + + +--------+ + + documented as of this encounter Visit Diagnoses + + | Diagnosis | + + | Rheumatoid arthritis, involving unspecified site, unspecified rheumatoid factor | | presence (HCC) - Primary | + + | High risk medication use Encounter for long-term (current) use of other medications | + + documented in this encounter"
--- OUTSIDE RECORDS SUMMARY | ~2019-05-05 | XMS | Encounter Summary ---
Demographics + + + | Address | [address] | | | [place] [address] | + + + | Home Phone | | + + + | Preferred Language | Unknown | + + + | Marital Status | | + + + | Yarsanism Affiliation | Unknown | + + + | Race | Unknown | + + + | Ethnic Group | Unknown | + + + Author + + + | Author | [facility] | | | and [place] | + + + | Organization | [facility] | | [...] [address] | | | | | [address] | | + + + + + Care Team Providers + +------+ + | Care Dope Pourer Name | Role | Phone | + +------+ + PCP | Unavailable | + +------+ + Encounter Details +--------+ + + + + | Date | Type | Department | Care Team | Description | +--------+ + + + + | 01/05/ | Hospital | C GENERIC IP | Conversion | Pain | | 2013 | Encounter | CONVERSION [address] | Transaction, | | | | | [address] | Provider Unknown | | | | | [place], [place] | [phone] | | | | | [phone] | (Fax) | | | | | | | [...] | | | | | [place] [address] | | | | | | [phone] | | | | | | | | +--------+ + + + + | 06/08/ | Office | Physical Medicine | Rocky Santos, | | | 2019 | Visit | and Rehabilitation | MD [address]ole [address] | | | | | | [place] | | | | | | [address] | | | | | | | | +--------+ + + + + | 06/16/ | Appointment | Pulmonology | Eveline Jaffe | | 2019 | | | MD [address] | | | | | | [address] | | | | | | [place] [address] | | | | | | [phone] | | | | | | | | +--------+ + + + + | 06/16/ | Office | Pulmonology | Eveline Jaffe | | | 2019 | Visit | | MD Raul [address] | | | | | | [address] | | | | | | [place] [address] | | | | | | [phone] | | | | | | | | +--------+ + + + + | 08/24/ | Office | Cardiology | Anisha Lopez DO | | | 2019 | Visit | | [address] | | | | | | [place] | | | | | | [address] | | | | | | | | +--------+ + + + + documented as of this encounter Procedures + +--------+ + + + | Procedure Name | Priori | Date/Time | Associated Diagnosis | Comments | | | ty | | | | + +--------+ + + + | CT CERVICAL SPINE WO | Routin | 12/14/2012 | | Results for this | | CONTRAST | e | 1:47 PM | | procedure are in the | | | | PDT | | results section. | + +--------+ + + + documented in this encounter Results CT Cervical Spine wo Contrast (12/14/2012 1:47 PM PDT) + + | Specimen | + + | | + + + + + | Narrative | Performed At | + + + | This is a non-reportable procedure without a radiologist report and | | | is used for image storage only | | + + + + + | Procedure Note | + + | Raoul Lockwood Conversion - 01/21/2019 4:40 PM PDT This is a non-reportable procedure | | without a radiologist report and isused for image storage only | + + documented in this encounter Visit Diagnoses + + | Diagnosis | + + | Pain Generalized pain | + + documented in this encounter"
--- OUTSIDE RECORDS SUMMARY | ~2019-05-05 | XMS | Encounter Summary ---
Demographics + + + | Address | [address] | | | [place] [address] | + + + | Home Phone | | + + + | Preferred Language | Unknown | + + + | Marital Status | | + + + | Religion Affiliation | Unknown | + + + | Race | Unknown | + + + | Ethnic Group | Unknown | + + + Author + + + | Author | [facility] [...] [place] | | | | | [address] | | + + + + + Care Team Providers + +------+ + | Care Director [employer] Name | Role | Phone | + [...] | | | hand, | | [place] [address] | | | | | unspecified | | Phone: | | | | | osteoarthrit | | [phone] | | | | | is type | | Fax: | | | | | Osteoarthrit | | [phone] | | | | | is of [...] | | | | | | | NE REPAIR | | | | | | | INTERCARP/CA | | | | | | | RP-METACARP | | | | | | | JT | | | +--------+--------+ + + + + Encounter Details +--------+ + + + + | Date | Type | Department | Care Team | Description | +--------+ + + + + | 03/20/ | Hospital | [facility] | Giuliano Padilla, | | | 2014 | Encounter | MED CTR OR INTRA OP | [address] [facility] | | | | | [address] | [place] | | | | | [place] | [address] | | | | | [address] | | | | | | [phone] | | | +--------+ + + + [...] + + + | Blood Pressure | 118/68 | 03/20/2015 1:45 PM | | | | | PDT | | + + + + + | Pulse | 76 | 03/20/2015 1:45 PM | | | | | PDT | | + + + + + | Temperature | 36.4 C (97.5 F) | 03/20/2015 1:32 PM | | | | | PDT | | + + + + + | Respiratory Rate | 16 | 03/20/2015 1:45 PM | | | | | PDT | | + + + + + | Oxygen Saturation | 96% | 03/20/2015 1:45 PM | | | | | PDT [...] | 2 | 08/22/19 | | | (TESHERO PERLSHAVON) | mouth 3 times daily | capsule [...] by mouth | | 0 | | 02/19/201 | | (PLAVIX) 75 mg | Daily. [...] | | | | | [place] [address] | | | | | | [phone] | | | | | | | | +--------+ + + + + | 06/08/ | Office | Physical Medicine | Rocky Santos, | | | 2019 | Visit | and Rehabilitation | MD [address]ole Landis | | | | | | [place] | | | | | | [address] | | | | | | | | +--------+ + + + + | 06/16/ | Appointment | Pulmonology | Eveline Jaffe | | 2019 | | | MD [address] | | | | | | [address] | | | | | | [place] [address] | | | | | | [phone] | | | | | | | | +--------+ + + + + | 06/16/ | Office | Pulmonology | Eveline Jaffe | | | 2019 | Visit | | MD Raul [address] | | | | | | [address] | | | | | | [place] [address] | | | | | | [phone] | | | | | | | | +--------+ + + + + | 08/24/ | Office | Cardiology | Anisha Lopez DO | | | 2019 | Visit | | [address] | | | | | | [place] | | | | | | [address] | | | | | | | [...] | + +--------+ + + + | SHEFALI HERNANDEZ STATS NO | Routin | 03/20/2015 | [...] + | Fabián, Rad Results In - 03/21/2015 8:24 AM PDT [...] | | | + +---------+ + + SHEFALI Najera No Charge (03/20/2015 1:22 PM PDT) + [...] PDT | | | | | Starting Thu03/20/15 at 1319, | | | | | [...] | | | | PRN, Pain, Starting 03/20/15 | | AM PDT | | | [...] +---------+ +---------+-------+--------+ +---+---+ | | | +---+---+ documented in this encounter
--- OUTSIDE RECORDS SUMMARY | ~2019-05-05 | XMS | Encounter Summary ---
Demographics + + + | Address | [address] | | | [place] [address] | + + + | Home Phone | | + + + | Preferred Language | Unknown | + + + | Marital Status | | + + + | Jehovah'S Witness Affiliation | Unknown | + + + | Race | Unknown | + + + | Ethnic Group | Unknown | + + + Author + + + | Author | [facility] | | | and [place] | + + + | Organization | [facility] | | [...] [address] | | | | | [address] | | + + + + + Care Team Providers + +------+ + | Care Dredgemaster Name | Role | Phone | + [...] Provider Unknown | | | | | [place], [place] | [phone] | | | | | [phone] | (Fax) | | | | | [...] | | | | | [place] [address] | | | | | | [phone] | | | | | | | | +--------+ + + + + | 06/08/ | Office | Physical Medicine | oRcky Santos, | | | 2019 | Visit | and Rehabilitation | MD [address]ole Landis | | | | | | [place] | | | | | | [address] | | | | | | | | +--------+ + + + + | 06/16/ | Appointment | Pulmonology | Eveline Jaffe | | 2019 | | | MD [address] | | | | | | [address] | | | | | | [place] [address] | | | | | | [phone] | | | | | | | | +--------+ + + + + | 06/16/ | Office | Pulmonology | Eveline Jaffe | | | 2019 | Visit | | MD Raul [address] | | | | | | [address] | | | | | | [place] [address] | | | | | | [phone] | | | | | | | | +--------+ + + + + | 08/24/ | Office | Cardiology | Anisha Lopez DO | | | 2019 | Visit | | [address] | | | | | | [place] | | | | | | [address] | | | | | | | [...]
--- OUTSIDE RECORDS SUMMARY | ~2019-05-05 | XMS | Encounter Summary ---
Demographics + + + | Address | [address] | | | [place] [address] | + + + | Home Phone | | + + + | Preferred Language | Unknown | + + + | Marital Status | | + + + | Buddhism Affiliation | Unknown | + + + | Race | Unknown | + + + | Ethnic Group | Unknown | + + + Author + + + | Author | [facility] | | | and [place] | + + + | Organization | [facility] | | | [...] [place] | | | | | [address] | | + + + + + Care Team Providers + +------+ + | Care Senior Program Planner Name | Role | Phone | + +------+ + | Caitlin Chino MD | PCP | | + +------+ + Encounter Details +--------+ + + + + | Date | Type | Department | Care Team | Description | +--------+ + + + + | 03/21/ | Orders Only | [facility] [place] | Eveline Jaffe | Chronic obstructive | | 2018 | | PULMONARY [address] | MD Raul [address] | bronchitis with | | | | [place], | [address] [place] | pulmonary emphysema | | | | [place] [address] | [place] [address] | (Primary Dx) | | | | [phone] | [phone] | | | | | | | [...] W | | | | | | [facility] | | | | | | [place] [address] | | | | | | [phone] | | | | | | | | +--------+ + + + + | 06/08/ | Office | Physical Medicine | Rocky Santos, | | | 2019 | Visit | and Rehabilitation | [address] | | | | | | [place] | | | | | | [address] | | | | | | | | +--------+ + + + + | 06/16/ | Appointment | Pulmonology | Eveline Jaffe | | | 2019 | | | MD [address] | | | | | | [address] [place] | | | | | | [place] [address] | | | | | | [phone] | | | | | | | | +--------+ + + + + | 06/16/ | Office | Pulmonology | Eveline Jaffe | | | 2019 | Visit | | MD Nichole [address] | | | | | | [address] [place] | | | | | | [place] [address] | | | | | | [phone] | | | | | | | | +--------+ + + + + | 08/24/ | Office | Cardiology | Anisha Lopez DO | | | 2019 | Visit | | [address] | | | | | | [place] | | | | | | [address] | | | | | | | | +--------+ + + + + documented as of this encounter Visit Diagnoses + + | Diagnosis | + + | 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
--- OUTSIDE RECORDS SUMMARY | ~2019-05-05 | XMS | Encounter Summary ---
Demographics + + + | Address | [address] | | | [place] [address] | + + + | Home Phone | | + + + | Preferred Language | Unknown | + + + | Marital Status | | + + + | Cheondoism Affiliation | Unknown | + + + | Race | Unknown | + + + | Ethnic Group | Unknown | + + + Author + + + | Author | [facility] | | | and [place] | + + + | Organization | [facility] | | [...] [place] | | | | | [address] | | + + + + + Care Team Providers + +------+ + | Care Certified Art Therapist Name | Role | Phone | + [...] Description | +--------+--------+ + + + | 03/09/ | Refill | [facility] | Anahy Forbes RN | Medication Refill | | 2014 | | MED CTR MEDICAL | | | | | | ONCOLOGY CLINIC [address] | | | | | | [address] | | | | | | [place] [address] | | | | | | [phone] | | | +--------+--------+ + + + [...] | | | | | [place] [address] | | | | | | [phone] | | | | | | | | +--------+ + + + + | 06/08/ | Office | Physical Medicine | Rocky Santos, | | | 2019 | Visit | and Rehabilitation | [address] | | | | | | [place] | | | | | | [address] | | | | | | | | +--------+ + + + + | 06/16/ | Appointment | Pulmonology | Eveline Jaffe | | | 2019 | | | MD [address] | | | | | | [address] [place] | | | | | | [place] [address] | | | | | | [phone] | | | | | | | | +--------+ + + + + | 06/16/ | Office | Pulmonology | Eveline Jaffe | | | 2019 | Visit | | MD Nichole [address] | | | | | | [address] [place] | | | | | | [place] [address] | | | | | | [phone] | | | | | | | | +--------+ + + + + | 08/24/ | Office | Cardiology | Anisha Lopez DO | | | 2019 | Visit | | [address] | | | | | | [place] | | | | | | [address] | | | | | | | | +--------+ + + + + documented as of this encounter Visit Diagnoses + + | Diagnosis | + + | Gastroesophageal reflux disease without esophagitis - Primary Esophageal reflux | + + documented in this encounter"
--- OUTSIDE RECORDS SUMMARY | ~2019-05-05 | XMS | Encounter Summary ---
Demographics + + + | Address | [address] | | | [place] [address] | + + + | Home Phone | | + + + | Preferred Language | Unknown | + + + | Marital Status | | + + + | Amish Affiliation | Unknown | + + + | Race | Unknown | + + + | Ethnic Group | Unknown | + + + Author + + + | Author | [facility] | | | and [place] | + + + | Organization | [facility] | | | [...] [place] | | | | | [address] | | + + + + + Care Team Providers + +------+ + | Care Medical Billing Coder Name | Role | Phone | + +------+ + | Davis Ivan MD | PCP | | + +------+ + Encounter Details +--------+ + + + + | Date | Type | Department | Care Team | Description | +--------+ + + + + | 08/22/ | Hospital | [facility] | Adelita Lu MD | Lung cancer (HCC) | | 2014 | Encounter | MED CTR PULMONARY | [address] | | | | | FUNCTION [address] | [place], [place] | | | | | [place], | [address] | | | | | [place] [address] | [phone] | | | | | [phone] | | | +--------+ + + + [...] +---------+ + + | cloNIDine | Take 0.1 mg [...] + + + +---------+ + + | lisinopril | Take 10 mg [...] + +---------+ + + | | Take 1 tablet by [...] + + + +---------+ + + | tiZANidine | Take 4 mg [...] | | | | | [place] [address] | | | | | | [phone] | | | | | | | | +--------+ + + + + | 06/08/ | Office | Physical Medicine | Rocky Santos | | | 2019 | Visit | and Rehabilitation | [address] | | | | | | [place] | | | | | | [address] | | | | | | | | +--------+ + + + + | 06/16/ | Appointment | Pulmonology | Eveline Jaffe | | | 2019 | | | MD [address] | | | | | | [address] [place] | | | | | | [place] [address] | | | | | | [phone] | | | | | | | | +--------+ + + + + | 06/16/ | Office | Pulmonology | Eveline Jaffe | | 2019 | Visit | | MD [address]ole [address] | | | | | | [address] [place] | | | | | | [place] [address] | | | | | | [phone] | | | | | | | | +--------+ + + + + | 08/24/ | Office | Cardiology | Anisha Lopez DO | | 2019 | Visit | | [address] | | | | | | [place] | | | | | | [address] | | | | | | | | +--------+ + + + + documented as of this encounter Procedures + +--------+ + + + | Procedure Name | Priori | Date/Time | Associated Diagnosis | Comments | | | ty | | | | + +--------+ + + + | PFT PULMONARY | ZEYNEP | 09/01/2013 | Lung cancer (HCC) | Results for this | | FUNCTION TESTING | | 6:12 AM | | procedure are in the | | ORDERS | | PDT | | results section. | + +--------+ + + + | PFT PULMONARY | ZEYNEP | 09/01/2013 | Lung cancer (HCC) | Results for this | | FUNCTION TESTING | | 6:12 AM | | procedure are in the | | ORDERS | | PDT | | results section. | + +--------+ + + + | PFT PULMONARY | ZEYNEP | 09/01/2013 | Lung cancer (HCC) | Results for this | | FUNCTION TESTING | | 6:12 AM | | procedure are in the | | ORDERS | | PDT | | results section. | + +--------+ + + + | PFT PULMONARY | ZEYNEP | 09/01/2013 | Lung cancer (HCC) | Results for this | | FUNCTION TESTING | | 6:12 AM | | procedure are in the | | ORDERS | | PDT | | results section. | + +--------+ + + + | DIAGNOSTIC REPORT - | | 08/22/2013 | | | | EXTERNAL SCAN | | 12:00 AM | | | | | | PDT | | | + +--------+ + + + documented in this encounter Results PFT PULMONARY FUNCTION TESTING ORDERS Full PFT (Mp w/BD, lung volumes, diffusion)?: Yes; Spirometry?: Yes; Diffusion (DLCO)?: Yes (09/01/2013 6:12 AM PDT) + + + | Narrative | Performed At | + + + | Ayana Taylor MD 09/01/2013 6:12 PULMONARY | | | FUNCTION TESTING SPIROMETRY: Prior to administration of inhaled | | | bronchodilator, FVC was normal at 2.64 L or 97% of predicted. FEV1 | | | was mildly reduced at 1.31 L or 62% of predicted. FEV1/FVC ratio was | | | reduced at 49%. After administration of inhaled bronchodilator, FVC | | | increased by 8 % to 2.86 L or 105% of predicted. FEV1 increased | | | by 24 % to 1.62 L or 77% of predicted. FEV1/FVC ratio was reduced at | | | 57%. LUNG VOLUMES: Total lung capacity was normal at 5.22 L or | | | 108% of predicted. Residual volume was elevated at 2.56 L or 122% of | | | predicted. RV/TLC ratio was normal at 49% or 114 % of predicted. | | | DIFFUSION CAPACITY: Diffusion capacity was mildly reduced at 14.4 | | | mL/mmHg per minute or 65% of predicted and was not corrected for a | | | measured hemoglobin. IMPRESSION: Spirometry is consistent with | | | mild obstructive physiology. There was a significant response to | | | inhaled bronchodilator based on change in FEV1. Lung volume testing | | | is consistent with obstructive physiology. Diffusion capacity is | | | mildly reduced and is not corrected for measured hemoglobin. | | | Electronically signed by: Ayana Taylor MD 09/01/2013 6:07 [facility] | | | [facility] CC: Davis Ivan | | | | | + + + + + | Procedure Note | + + | Ayana Taylor MD - 09/01/2013 6:06 AM PDT PULMONARY FUNCTION TESTING | | SPIROMETRY: Prior to administration of inhaled bronchodilator, FVC was normal at 2.64 L | | or 97% of predicted. FEV1 was mildly reduced at 1.31 L or 62% of predicted. FEV1/FVC | | ratio was reduced at 49%. After administration of inhaled bronchodilator, FVC increased | | by 8 % to 2.86 L or 105% of predicted. FEV1 increased by 24 % to 1.62 L or 77% of | | predicted. FEV1/FVC ratio was reduced at 57%.LUNG VOLUMES: Total lung capacity was | | normal at 5.22 L or 108% of predicted. Residual volume was elevated at 2.56 L or 122% of | | predicted. RV/TLC ratio was normal at 49% or 114 % of predicted. DIFFUSION CAPACITY: | | Diffusion capacity was mildly reduced at 14.4 mL/mmHg per minute or 65% of predicted and | | was not corrected for a measured hemoglobin.IMPRESSION: Spirometry is consistent with | | mild obstructive physiology. There was a significant response to inhaled bronchodilator | | based on change in FEV1. Lung volume testing is consistent with obstructive physiology. | | Diffusion capacity is mildly reduced and is not corrected for measured | | hemoglobin.Electronically signed by: Ayana Taylor MD 09/01/2013 6:07[facility] | | [facility] Davis [facility] | |[facility] | | | |CC: Davis Ivan | + + documented in this encounter Visit Diagnoses + + | Diagnosis | + + | Lung cancer (HCC) Malignant neoplasm of bronchus and lung, unspecified site | + + documented in this encounter Administered Medications + +--------+ +--------+------+------+ | Medication Order | MAR | Action | Dose | Rate | Site | | | Action | Date | | | | + +--------+ +--------+------+------+ | albuterol 2.5 mg/3 mL nebulizer | Given | 08/23/19 | 2.5 mg | | | | solution 2.5 mg 2.5 mg, | | 14 1:17 | | | | | Nebulization, RT Once, Mon | | PM PDT | | | | | 08/22/13 at 1330, For 1 dose, RT | | | | | | | will administer., | | | | | | + +--------+ +--------+------+------+ +---+---+ | | | +---+---+ documented in this encounter"
--- OUTSIDE RECORDS SUMMARY | ~2019-05-05 | XMS | Encounter Summary ---
Demographics + + + | Address | [address] | | | [place] [address] | + + + | Home Phone | | + + + | Preferred Language | Unknown | + + + | Marital Status | | + + + | Judaism Affiliation | Unknown | + + + | Race | Unknown | + + + | Ethnic Group | Unknown | + + + Author + + + | Author | [facility] | | | and [place] | + + + | Organization | [facility] | | [...] [place] | | | | | [address] | | + + + + + Care Team Providers + +------+ + | Care Screen Operator Name | Role | Phone | [...] Description | +--------+--------+ + + + | 12/31/ | Refill | [facility] | Noreen Stanley | Medication Refill | | 2015 | | MED CTR MEDICAL | P, RN | | | | | ONCOLOGY CLINIC [address] | | | | | | [address] | | | | | | [place] [address] | | | | | | [phone] | | | +--------+--------+ + + + [...] W | | | | | | [facility] | | | | | | [place] [address] | | | | | | [phone] | | | | | | | | +--------+ + + + + | 06/08/ | Office | Physical Medicine | Rocky Santos, | | | 2019 | Visit | and Rehabilitation | [address] | | | | | | [place] | | | | | | [id number] | | | | | | | | +--------+ + + + + | 06/16/ | Appointment | Pulmonology | Eveline Jaffe | | | 2019 | | | MD [address] | | | | | | [address] [place] | | | | | | [place] [address] | | | | | | [phone] | | | | | | | | +--------+ + + + + | 06/16/ | Office | Pulmonology | Eveline Jaffe | | | 2019 | Visit | | MD Nichole Carter | | | | | | [address] [place] | | | | | | [place] [address] | | | | | | [phone] | | | | | | | | +--------+ + + + + | 08/24/ | Office | Cardiology | Anisha Lopez DO | | 2019 | Visit | | [address] | | | | | | [place] | | | | | | [address] | | | | | | | | +--------+ + + + + documented as of this encounter Visit Diagnoses + + | Diagnosis | + + | Gastroesophageal reflux disease without esophagitis - Primary Esophageal reflux | + + documented in this encounter"
--- OUTSIDE RECORDS SUMMARY | ~2019-05-05 | XMS | Encounter Summary ---
Demographics + + + | Address | [address] | | | [place] [address] | + + + | Home Phone [...] [place] | | | | | [address] | | + + + + + Care Team Providers + +------+ + | Care [employer] Name | Role | Phone | + +------+ + | Davis Ivan MD | PCP | | + +------+ + Reason for Referral Evaluate & Treat (Routine) +--------+--------+ + + + + | Status | Reason | Specialty | Diagnoses / | Referred By | Referred To | | | | | Procedures | Contact | Contact | +--------+--------+ + + + + | Closed | | Sleep | Diagnoses | Sam, | Cleve | | | | Medicine | Sleep | Gurmeet | Devin Toney | | | | | disturbance | MD Guilherme | MD Lauro [address] | | | | | | [address] | [place] | | | | | | [address] | [facility] | | | | | | [place], | [place] | | | | | | [place] [address] | [address] Phone: | | | | | | Phone: | [phone] | | | | | | [phone] | Fax: | | | | | | Fax: | [phone] | | | | | | [phone] | | +--------+--------+ + + + + Encounter Details +--------+ + + + + | Date | Type | Department | Care Team | Description | +--------+ + + + + | 11/19/ | Orders Only | [facility] [place] | Gurmeet Vargas | Sleep disturbance | | 2018 | | PULMONARY [address] | MD [address] | (Primary Dx) | | | | [place], | [address] [place] | | | | | [place] [address] | [place] [address] | | | | | [phone] | [phone] | | | | | | | [...] W | | | | | | [facility] | | | | | | [place] [address] | | | | | | [phone] | | | | | | | | +--------+ + + + + | 06/08/ | Office | Physical Medicine | Rocky Santos, | | | 2019 | Visit | and Rehabilitation | [address] | | | | | | [place] | | | | | | [address] | | | | | | | | +--------+ + + + + | 06/16/ | Appointment | Pulmonology | Eveline Jaffe | | | 2019 | | | MD Nichole Carter | | | | | | [address] | | | | | | [place] [address] | | | | | | [phone] | | | | | | | | +--------+ + + + + | 06/16/ | Office | Pulmonology | Eveline Jaffe | | | 2019 | Visit | | MD Raul [address] | | | | | | [address] [place] | | | | | | [place] [address] | | | | | | [phone] | | | | | | | | +--------+ + + + + | 08/24/ | Office | Cardiology | Anisha Lopez DO | | | 2019 | Visit | | [address] | | | | | | [place] | | | | | | [address] | | | | | | | | +--------+ + + + + + + +--------+ + + | Name | Type | Priori | Associated Diagnoses | Order Schedule | | | | ty | | | + + +--------+ + + | AMB REFERRAL TO [facility] | Outpatient | Routin | Sleep disturbance | Ordered: 11/19/2017 | | [place] [facility] | Referral | e | | | + + +--------+ + + documented as of this encounter Visit Diagnoses + + | Diagnosis | + + | Sleep disturbance - Primary Sleep disturbance, unspecified | + + documented in this encounter"
--- OUTSIDE RECORDS SUMMARY | ~2019-05-05 | XMS | Encounter Summary ---
Demographics + + + | Address | [address] | | | [place] [address] | + + + | Home Phone | | + + + | Preferred Language | Unknown | + + + | Marital Status | | + + + | Episcopal Affiliation | Unknown | + + + | Race | Unknown | + + + | Ethnic Group | Unknown | + + + Author + + + | Author | [facility] | | | and [place] | + + + | Organization | [facility] | | | [...] [place] | | | | | [address] | | + + + + + Care Team Providers + +------+ + | Care Geophysical Prospecting Surveyor Name | Role | Phone | + +------+ + | Davis Ivan MD | PCP | | + +------+ + Encounter Details +--------+ + + + + | Date | Type | Department | Care Team | Description | +--------+ + + + + | 12/16/ | Hospital | [facility] | Giuliano Padilla, | Left hand pain | | 2018 | Encounter | MED CTR LORAINE XRAY | MD Solo [facility] | | | | | [address] [place] | [place] | | | | | [place] | [address] | | | | | [address] | | | | | | [phone] | | | +--------+ + + + [...] | | | | type ([facility]) | | | | | [...] + + | methotrexate 2.5 | take 6 tablets by | | 0 | 11/24/19 | | | MG | mouth every week | | | 18 | 9 | | tabletIndications: | | | | | | | Right hand pain | | | | | | + [...] by | | 0 | 10/10/19 | | | (ZANTAC) 300 MG | mouth [...] | | | | | | COMPRESSOR) KIT | J43.1 CASIE: 99 months | | | | | + + + +---------+ + + | rOPINIRole | Take 2 tablets by | | 0 | 11/11/19 | | | (REQUIP) 0.5 MG | mouth nightly. | | | 18 | 9 | [...] W | | | | | | [facility] | | | | | | [place] [address] | | | | | | [phone] | | | | | | | | +--------+ + + + + | 06/08/ | Office | Physical Medicine | Rocky Santos, | | | 2019 | Visit | and Rehabilitation | MD Varela W Shelbi Landis | | | | | | [place] | | | | | | [phone] | | | | | | | | +--------+ + + + + | 06/16/ | Appointment | Pulmonology | Eveline Jaffe | | | 2019 | | | MD Nichole Carter [address] | | | | | | [address] [place] | | | | | | [place] [address] | | | | | | [phone] | | | | | | | | +--------+ + + + + | 06/16/ | Office | Pulmonology | Eveline Jaffe | | | 2019 | Visit | | MD Nichole Carter | | | | | | [address] [place] | | | | | | [place] [address] | | | | | | [phone] | | | | | | | | +--------+ + + + + | 08/24/ | Office | Cardiology | Anisha Lopez DO | | 2019 | Visit | | [address] | | | | | | [place] | | | | | | [address] | | | | | | | [...] for this | | | e | 3:19 PM | | procedure are in the | | | | PDT | | results section. | + +--------+ + + + documented in this encounter Results XR Hand Right 3 + Vw (12/16/2017 3:19 PM PDT) + + | Specimen | [...] Signed by: Yovanny Chin MD Electronically signed: 12/16/2017 | | | 6:28 PM | | + + + + + | Procedure Note | + + | Fabián, Rad Results In - 12/16/2017 6:31 PM PDT XR HAND RIGHT 3 + VW [...] + | Diagnosis | + + | Left hand pain Pain in limb | + + documented in this encounter"
--- OUTSIDE RECORDS SUMMARY | ~2019-05-05 | XMS | Encounter Summary ---
Demographics + + + | Address | [address] | | | [place] [address] | + + + | Home Phone | | + + + | Preferred Language | Unknown | + + + | Marital Status | | + + + | Evangelical Affiliation | Unknown | + + + | Race | Unknown | + + + | Ethnic Group | Unknown | + + + Author + + + | Author | [facility] | | | and [place] | + + + | Organization | [facility] | | | [...] [place] | | | | | [address] | | + + + + + Care Team Providers + +------+ + | Care Liquid Fertilizer Servicer Name | Role | Phone | + +------+ + | Caitlin Chino MD | PCP | | + +------+ + Reason for Visit Auth/Cert +--------+--------+ + + + + | Status | Reason | Specialty | Diagnoses / | Referred By | Referred To | | | | | Procedures | Contact | Contact | +--------+--------+ + + + + | | | | Diagnoses | | | | | | | Right Lower | | | | | | | Lobe | | | | | | | Pneumonia | | | +--------+--------+ + + + + Encounter Details +--------+ + + + + | Date | Type | Department | Care Team | Description | +--------+ + + + + | 09/01/ | Hospital | [facility] | Gurmeet Vargas | Tachypnea | | 2019 | Encounter | MED CTR XRAY [address] | MD [address] | | | | | [place] | [address] [place] | | | | | [place] [address] | [place] [address] | | | | | [phone] | [phone] | | | | | | | [...] by | 360 mL | 3 | 03/06/20 | | | albuterol-ipratropiu | nebulization 4 [...] | | | | | | type ([facility]) | | | | | [...] mg by mouth | | 0 | 08/31/19 | | | 20 mg tablet | Daily. | | | 19 | 9 | + + + +---------+ + + | GUAIATUSSIN AC | Take 5 mLs by mouth | | 0 | 08/11/19 | | | 100-10 MG/5ML syrup | Daily as needed. | | | 19 | 9 | + + + +---------+ + + | | Take 1 tablet by | | 0 | 08/03/19 | | | HYDROcodone-acetamin | mouth Daily as | | | 19 | 9 | | ophen (NORCO) 5-325 | needed. | | | | | | mg per tablet | | | | | | + + + +---------+ + + | hydrocortisone | Apply 1 Application | | 0 | 08/31/19 | | | 2.5% cream | topically 2 times | | | 19 | 9 | | | daily. | | | | | [...] + + + +---------+ + + | mirtazapine | Take 15 mg by mouth | | 0 | 07/14/19 | | | (REMERON) 15 MG | nightly. | | | 19 | 9 | | tablet | | [...] + + +---------+ + + | oxyCODONE | Take 5 mg by mouth | | 0 | 08/23/19 | | | (ROXICODONE) 5 mg | Daily as needed. | | | 19 | 9 | | tablet | | [...] +---------+ + + | roflumilast | Take 1 tablet by | | 0 | 02/26/20 | | | (DALIRESP) 500 mcg | mouth Daily. | | | 18 | 9 [...] | 2018 | Visit | | [address] | | | | | | [facility] | | | | | | [place] [address] | | | | | | [phone] | | | | | | | | +--------+ + + + + | 06/08/ | Office | Physical Medicine | Rocky Santos, | | | 2019 | Visit | and Rehabilitation | MD Nichole Mario | | | | | | [place] | | | | | | [address] | | | | | | | | +--------+ + + + + | 06/16/ | Appointment | Pulmonology | Eveline Jaffe | | 2019 | | | MD Nichole Carter | | | | | | [address] | | | | | | [place] [address] | | | | | | [phone] | | | | | | | | +--------+ + + + + | 06/16/ | Office | Pulmonology | Eveline Jaffe | | 2019 | Visit | | MD Nichole Carter | | | | | | [address] [place] | | | | | | [place] [address] | | | | | | [phone] | | | | | | | | +--------+ + + + + | 08/24/ | Office | Cardiology | Anisha Lopez DO | | | 2019 | Visit | | [address] | | | | | | [place] | | | | | | [address] | | | | | | | | +--------+ + + + + documented as of this encounter Procedures + +--------+ + + + | Procedure Name | Priori | Date/Time | Associated Diagnosis | Comments | | | ty | | | | + +--------+ + + + | XR CHEST PA AND | ZEYNEP | 09/01/2018 | Tachypnea | Results for this | | LATERAL | | 4:15 PM | | procedure are in the | | | | PDT | | results section. | + +--------+ + + + documented in this encounter Results XR Chest PA and Lateral (09/01/2018 4:15 PM PDT) + + | Specimen | + + | | + + + + + | Narrative | Performed At | + + + | CLINICAL INFORMATION: tachypnea, pneumonia history, | [facility] | | immunocompromised. COMPARISON: 10/22/2017. FINDINGS: Frontal | | | and lateral views of the chest. Stable left chest port. | | | Lungs: Ill-defined hazy appearance at the right mid to lower lung on | | | the AP view. Small right pleural effusion. Stable scarring/post | | | treatment changes at the posterior right perihilar region. Surgical | | | clips are noted at the right hilum consistent with lobectomy | | | changes. Heart/mediastinum: Cardiac silhouette is of normal size. | | | Stable rightward mediastinal shift. Bones: No acute osseous | | | abnormality appreciated. Cervical spine fusion changes. | | | IMPRESSION - Ill-defined hazy opacities at the right mid to lower | | | lung may represent pneumonia in the appropriate clinical setting. | | | Small right pleural effusion. Post therapy changes appear | | | stable. Dictated and Signed by: Alex Huddleston MD | | | Electronically signed: 09/01/2018 4:45 PM | | + + + + + | Procedure Note | + + | Fabián, Rad Results In - 09/01/2018 4:48 PM PDT CLINICAL INFORMATION: tachypnea, | | pneumonia history, immunocompromised.COMPARISON: 10/22/2017.FINDINGS: Frontal and lateral | | views of the chest. Stable left chest port.Lungs: Ill-defined hazy appearance at the | | right mid to lower lung on the APview. Small right pleural effusion. Stable | | scarring/post treatment changes atthe posterior right perihilar region. Surgical clips | | are noted at the righthilum consistent with lobectomy changes.Heart/mediastinum: Cardiac | | silhouette is of normal size. Stable rightwardmediastinal shift.Bones: No acute | | osseous abnormality appreciated. Cervical spine fusion changes.IMPRESSION - Ill-defined | | hazy opacities at the right mid to lower lung may representpneumonia in the appropriate | | clinical setting. Small right pleural effusion.Post therapy changes appear | | stable.Dictated and Signed by: Alex Huddleston MD Electronically signed: 09/01/2018 4:45 | | PM | |hilum consistent with lobectomy changes. | | | |Heart/mediastinum: Cardiac silhouette is of normal size. Stable rightward | |mediastinal shift. | | | |Bones: No acute osseous abnormality appreciated. Cervical spine fusion changes. | | | |IMPRESSION - | |Ill-defined hazy opacities at the right mid to lower lung may represent | |pneumonia in the appropriate clinical setting. Small right pleural effusion. | | | |Post therapy changes appear stable. | | | |Dictated and Signed by: Alex Huddleston MD | | Electronically signed: 09/01/2018 4:45 PM | + + + +---------+ + + | Performing | Address | City/State/Zipcode | Phone Number | | Organization | | | | + +---------+ + + | [facility] | | | | + +---------+ + + documented in this encounter Visit Diagnoses + + | Diagnosis | + + | Tachypnea | + + documented in this encounter"
--- OUTSIDE RECORDS SUMMARY | ~2019-05-05 | XMS | Encounter Summary ---
Demographics + + + | Address | [address] | | | [place] [address] | + + + | Home Phone | | + + + | Preferred Language | Unknown | + + + | Marital Status | | + + + | Scientologist Affiliation | Unknown | + + + [...] [place] | | | | | [address] | | + + + + + Care Team Providers + +------+ + | Care Coffee Maker Servicer Name | Role | Phone | [...] Closed | | Radiology | Diagnoses | Lord, | [address] | | | | | Squamous | Jimmy C, DO | [address] | | | | | cell | [address] | [place], | | | | | carcinoma of | [address] | [place] [address] | | | | | lung, stage | [place], | Phone: | | | | | I, right | [place] [address] | [phone] | | | | | (HCC) | Phone: | Fax: | | | | | Procedures | [phone] | [phone] | | | | | CT Treatment | Fax: | | | | | | Plan | [phone] | | | | | | Complex | | | +--------+--------+ + + + + Reason for Visit Evaluate & Treat (Routine) +--------+ + + + + + | Status | Reason | Specialty | Diagnoses / | Referred By | Referred To | | | | | Procedures | Contact | Contact | +--------+ + + + + + | Closed | Specialty | Radiation | Diagnoses | | Jimmy Banegas | | | Services | Oncology | Recurrent | Offenstein, | C, DO [address] | | | Required | | squamous | Ayana B, | [address] | | | | | cell | MD [address] | [place], | | | | | carcinoma of | [address] | [place] [address] | | | | | lung, right | [place], | Phone: | | | | | ([facility]) | [place] [address] | [phone] | | | | | | | Fax: | | | | | | | [phone] | +--------+ + + + + + Encounter Details +--------+ + + + + | Date | Type | Department | Care Team | Description | +--------+ + + + + | 07/25/ | Hospital | [facility] | Jimmy Banegas DO | 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 | Encounter | MED CTR RADIATION | [address] | carcinoma of lung, | | | | ONCOLOGY [address] | [place], [place] | stage I, right (HCC) | | | | [address] [place], | [address] | | | | | [place] [address] | | | | | | [phone] | | | +--------+ + + + [...] | | | | | [place] [address] | | | | | | [phone] | | | | | | | | +--------+ + + + + | 06/08/ | Office | Physical Medicine | Rocky Santos, | | | 2019 | Visit | and Rehabilitation | MD Varela [address] Landis | | | | | | [place] | | | | | | [address] | | | | | | | | +--------+ + + + + | 06/16/ | Appointment | Pulmonology | Eveline Jaffe | | 2019 | | | MD Nichole Carter [address] | | | | | | [place] | | | | | | [place] [address] | | | | | | [phone] | | | | | | | | +--------+ + + + + | 06/16/ | Office | Pulmonology | Ld Eveline | | | 2019 | Visit | | MD Raul [address] | | | | | | [place] | | | | | | [place] [address] | | | | | | [phone] | | | | | | | | +--------+ + + + + | 08/24/ | Office | Cardiology | Anisha Lopez DO | | | 2019 | Visit | | [address] | | | | | | [place] | | | | | | [address] | | | | | | | | +--------+ + + + + documented as of this encounter Results CT Treatment Plan Complex (07/26/2014 11:49 AM PST) + + | Specimen | [...] | | | + +---------+ + + Creatinine (07/25/2014 3:34 PM PST) + +-------+ [...] | | | | mL/min/1.73m2 | [facility] | | | [...] + | [facility] | [address] | [place] | [phone] | | [facility] | | [address] | | | - LABORATORY | | | | + + + + + | [facility] | [address] | [place] | | | [facility] | | [address] | | | - LABORATORY | | [...] + | [facility] | [address] | [place], [place] | [phone] | | [facility] | | [address] | | | - LABORATORY | | | | + + + + + | [facility] | [address] | [place], [place] | | | [facility] | | [address] | | | - LABORATORY | | | | + + + + + documented in this encounter Visit Diagnoses + + | Diagnosis | + + | Squamous cell carcinoma of lung, stage I, right (HCC) | + + documented in this encounter"
--- OUTSIDE RECORDS SUMMARY | ~2019-05-05 | XMS | Encounter Summary ---
Demographics + + + | Address | [address] | | | [place] [address] | + + + | Home Phone | | + + + | Preferred Language | Unknown | + + + | Marital Status | | + + + | Moravian Affiliation | Unknown | + + + [...] [place] | | | | | [address] | | + + + + + Care Team Providers + +------+ + | Care Food And Beverage Order Clerk Name | Role | Phone | + [...] | | | hand, | | [place] [address] | | | | | unspecified | | Phone: | | | | | osteoarthrit | | [phone] | | | | | is type | | Fax: | | | | | Osteoarthrit | | [phone] | | | | | is of [...] | | | | | | | [place] REPAIR | | | | | | | INTERCARP/CA | | | | | | | RP-METACARP | | | | | | | JT | | | +--------+--------+ + + + + Encounter Details +--------+---------+ + + + | Date | Type | Department | Care Team | Description | +--------+---------+ + + + | 03/20/ | Surgery | [facility] | Giuliano Padilla, | Left 1st [facility] | | 2014 | | MED CTR OR INTRA OP | MD Solo [facility] | Arthroplasty | | | | [address] | [place] | | | | | [place] | [address] | | | | | [address] | | | | | | [phone] | | | +--------+---------+ + + + [...] | | | | | [place] [address] | | | | | | [phone] | | | | | | | | +--------+ + + + + | 06/08/ | Office | Physical Medicine | Rocky Santos, | | | 2019 | Visit | and Rehabilitation | MD Varela [address] Shelbi Landis | | | | | | [place] | | | | | | [address] | | | | | | | | +--------+ + + + + | 06/16/ | Appointment | Pulmonology | Eveline Jaffe | | 2019 | | | MD Nichole Carter [address] | | | | | | [address] [place] | | | | | | [place] [address] | | | | | | [phone] | | | | | | | | +--------+ + + + + | 06/16/ | Office | Pulmonology | Eveline Jaffe | | | 2019 | Visit | | MD Nichole Carter [address] | | | | | | [address] [place] | | | | | | [place] [address] | | | | | | [phone] | | | | | | | | +--------+ + + + + | 08/24/ | Office | Cardiology | Anisha Lopez DO | | 2019 | Visit | | [address] | | | | | | [place] | | | | | | [address] | | | | | | | [...] | | + +---------+ + + [place] Av[place]ie No Charge (03/20/2015 1:22 PM PDT) + [...] ringers (LR) infusion | New Bag | 03/20/ | | | | | at 10-100 [...]
--- OUTSIDE RECORDS SUMMARY | ~2019-05-05 | XMS | Encounter Summary ---
Demographics + + + | Address | [address] | | | [place] [address] | + + + | Home Phone | | + + + | Preferred Language | Unknown | + + + | Marital Status | | + + + | Scientology Affiliation | Unknown | + + + | Race | Unknown | + + + | Ethnic Group | Unknown | + + + Author + + + | Author | [facility] | | | and [place] | + + + | Organization | [facility] | | [...] [place] | | | | | [address] | | + + + + + Care Team Providers + +------+ + | Care Stock Patcher Name | Role | Phone | + [...] Ct [address] | | | | | Malignant | Jimmy C DO | [address] | | | | | neoplasm of | [address] | [place], | | | | | lower lobe | [address] | [place] [address] | | | | | of right | [place], | Phone: | | | | | lung (HCC) | [place] [address] | [phone] | | | | | Procedures | Phone: | Fax: | | | | | CT Chest w | [phone] | [phone] | | | | | Contrast | Fax: | | | | | | | [phone] | | +--------+--------+ + + + + Encounter Details +--------+ + + + + | Date | Type | Department | Care Team | Description | +--------+ + + + + | 09/21/ | Orders Only | [facility] | Jimmy Banegas DO | Malignant neoplasm | | 2015 | | [facility] | [address] | of lower lobe of | | | | ONCOLOGY [address] | [place], [place] | right lung (HCC) | | | | [place], | [id number] | (Primary Dx) | | | | [place] [address] | | | | | | [phone] | | | +--------+ + + + [...] | | | | | [place] [address] | | | | | | [phone] | | | | | | | | +--------+ + + + + | 06/08/ | Office | Physical Medicine | Rocky Santos, | | | 2019 | Visit | and Rehabilitation | MD [address] | | | | | | [place] | | | | | | [address] | | | | | | | | +--------+ + + + + | 06/16/ | Appointment | Pulmonology | Eveline Jaffe | | 2019 | | | MD [address] | | | | | | [place] | | | | | | [place] [address] | | | | | | [phone] | | | | | | | | +--------+ + + + + | 06/16/ | Office | Pulmonology | Eveline Jaffe | | | 2019 | Visit | | MD Raul [address] | | | | | | [place] | | | | | | [place] [address] | | | | | | [phone] | | | | | | | | +--------+ + + + + | 08/24/ | Office | Cardiology | Anisha Lopez DO | | | 2019 | Visit | | [address] | | | | | | [place] | | | | | | [address] | | | | | | | | +--------+ + + + + documented as of this encounter Results CT Chest w Contrast (03/28/2015 3:00 PM PDT) + + | Specimen | + + | | + + + + + | Narrative | Performed At | + + + | EXAM: CT CHEST WITH CONTRAST:03/28/2015 2:20 PM HISTORY: post | [facility] | | treatment evaluation after XRT for RLL NSCLC COMPARISON: CT chest | | | examinations dated August 29, 2014, June 08, 2014 (from an outside | | | institution), and June 09, 2013. TECHNIQUE: Axial images are | | | obtained from thoracic inlet to upper abdomen during the uneventful | | | administration of 75 mL of Omnipaque 350. DOSE: DLP 146.43 mGy-cm | | | FINDINGS: Lungs: Emphysematous changes throughout both lungs. | | | Interval reduction in size of the right hilar mass. Measuring at | | | a similar location and in a similar manner, to the most recent | | | comparison exam, the lesion measures approximately 3.1 x 1.7 cm | | | compared to 3.1 x 2.3 cm. The craniocaudal dimension previously was | | | approximately 2.7 cm and today is about 2 cm. There has been some | | | interval development of irregular, mostly linear, parenchymal | | | opacities along the fissure emanating from the right hilum. There | | | are no new or developing lung nodules. There are a few areas of | | | probable mucous plugging in the right lower lobe. There is a stable | | | linear opacity in the right lower lung which is postsurgical. | | | Heart and mediastinum: No interval development of new mediastinal or | | | hilar lymphadenopathy. Stable size of the aorta and main pulmonary | | | artery. No interval pericardial thickening or development of | | | cardiomegaly. Chest wall: There is a tunneled vascular access | | | device on the left chest. The catheter tip terminates in the mid | | | superior vena cava. No visible axillary or supraclavicular | | | lymphadenopathy. Upper abdomen: Mild intrahepatic biliary ductal | | | dilatation. The visible portion of the common bile duct is dilated. | | | The distalmost aspect visualized is 13 mm and is above the | | | ampulla. This is not significantly changed. There is a tiny | | | hypodensity in the upper pole the left kidney. It is unchanged. It | | | is probably a cyst too small to characterize. There is a small | | | splenule. Bones: There continues to be heterogeneous increased | | | density throughout the osseous structures. This is most conspicuous | | | in the vertebral bodies. There is been interval development of a | | | mild superior endplate deformity involving T7. IMPRESSION - | | | Findings consistent with a response to therapy and associated changes | | | in the adjacent lung. No findings to suggest disease progression. | | | Density and heterogeneity of the marrow, in particular in the | | | vertebral bodies, is likely chemotherapy related. Interval | | | development of a mild superior endplate deformity of T7. This | | | appears to be subacute. Stable dilated biliary ducts. | | | Dictated and Signed by: Ronak Heath MD Electronically signed: | | | 03/28/2015 3:24 PM | | + + + + + | Procedure Note | + + | Fabián, Rad Results In - 03/28/2015 3:27 PM PDT EXAM: CT CHEST WITH CONTRAST:03/28/2015 | | 2:20 PMHISTORY: post treatment evaluation after XRT for RLL NSCLCCOMPARISON: CT chest | | examinations dated August 29, 2014, June 08, 2014 (from [facility]), and | | June 09, 2013.TECHNIQUE: Axial images are obtained from thoracic inlet to upper | | abdomen duringthe uneventful administration of 75 mL of Omnipaque 350.DOSE: DLP 146.43 | | mGy-cm FINDINGS:Lungs: Emphysematous changes throughout both lungs. Interval reduction | | in sizeof the right hilar mass. Measuring at a similar location and in a similarmanner, | | to the most recent comparison exam, the lesion measures approximately3.1 x 1.7 cm | | compared to 3.1 x 2.3 cm. The craniocaudal dimension previouslywas approximately 2.7 cm | | and today is about 2 cm. There has been some intervaldevelopment of irregular, mostly | | linear, parenchymal opacities along the fissureemanating from the right hilum. There | | are no new or developing lung nodules. There are a few areas of probable mucous plugging | | in the right lower lobe. There is a stable linear opacity in the right lower lung which | | is postsurgical.Heart and mediastinum: No interval development of new mediastinal or | | hilarlymphadenopathy. Stable size of the aorta and main pulmonary artery. Nointerval | | pericardial thickening or development of cardiomegaly.Chest wall: There is a tunneled | | vascular access device on the left chest. Thecatheter tip terminates in the mid | | superior vena cava. No visible axillary orsupraclavicular lymphadenopathy.Upper | | abdomen: Mild intrahepatic biliary ductal dilatation. The visible portionof the common | | bile duct is dilated. The distalmost aspect visualized is 13 mmand is above the | | ampulla. This is not significantly changed. There is a tinyhypodensity in the upper | | pole the left kidney. It is unchanged. It is probablya cyst too small to characterize. | | There is a small splenule.Bones: There continues to be heterogeneous increased density | | throughout theosseous structures. This is most conspicuous in the vertebral bodies. | | There isbeen interval development of a mild superior endplate deformity involving | | T7.IMPRESSION - Findings consistent with a response to therapy and associated changes in | | theadjacent lung. No findings to suggest disease progression.Density and heterogeneity | | of the marrow, in particular in the vertebral bodies,is likely chemotherapy | | related.Interval development of a mild superior endplate deformity of T7. This | | appearsto be subacute.Stable dilated biliary ducts.Dictated and Signed by: Ronak Knox | | MD Kumar Electronically signed: 03/28/2015 3:24 PM | | | |Upper abdomen: Mild intrahepatic biliary ductal dilatation. The visible portion | |of the common bile duct is dilated. The distalmost aspect visualized is 13 mm | |and is above the ampulla. This is not significantly changed. There is a tiny | |hypodensity in the upper pole the left kidney. It is unchanged. It is probably | |a cyst too small to characterize. There is a small splenule. | | | |Bones: There continues to be heterogeneous increased density throughout the | |osseous structures. This is most conspicuous in the vertebral bodies. There is | |been interval development of a mild superior endplate deformity involving T7. | | | |IMPRESSION - | | | |Findings consistent with a response to therapy and associated changes in the | |adjacent lung. No findings to suggest disease progression. | | | |Density and heterogeneity of the marrow, in particular in the vertebral bodies, | |is likely chemotherapy related. | | | |Interval development of a mild superior endplate deformity of T7. This appears | |to be subacute. | | | |Stable dilated biliary ducts. | | | |Dictated and Signed by: Ronak Heath MD | | Electronically signed: 03/28/2015 3:24 PM | + + + +---------+ + + | Performing | Address | City/State/Zipcode | Phone Number | | Organization | | | | + +---------+ + + | [facility] | | | | + +---------+ + + BUN (10/11/2014 11:14 AM PDT) + +-------+ + + + | Component | Value | Ref Range | Performed | Pathologist | | | | | At | Signature | + +-------+ + + + | BUN | 12 | 7 - 18 mg/dL | [facility] [...] [address] | [place] | [phone] | | [facility] | | [address] | | | - LABORATORY | | | | + + + + + Creatinine (10/11/2014 11:14 AM PDT) + +-------+ + + + | Component | Value | Ref Range | Performed | Pathologist | | | | | At | Signature | + +-------+ + + + | Creatinine | 0.77 | 0.60 - 1.30 | [facility] | [...] mL/min/1.73m2 | [facility] | | | [facility] | | | MEDICAL | | | [...] | [facility] | [address] | [place] | [phone] | | [facility] | | [address] | | | - LABORATORY | | | | + + + + + documented in this encounter Visit Diagnoses + + | Diagnosis | + + | Malignant neoplasm of lower lobe of right lung (HCC) - Primary | + + documented in this encounter"
--- OUTSIDE RECORDS SUMMARY | ~2019-05-05 | XMS | Encounter Summary ---
Demographics + + + | Address | [address] | | | [place] [address] | + + + | Home Phone | | + + + | Preferred Language | Unknown | + + + | Marital Status | | + + + | Adventist Affiliation | Unknown | + + + | Race | Unknown | + + + | Ethnic Group | Unknown | + + + Author + + + | Author | [facility] | | | and [place] | + + + | Organization | [facility] | | | [...] [place] | | | | | [address] | | + + + + + Care Team Providers + +------+ + | Care Biostatistician Name | Role | Phone | + +------+ + | Davis Ivan MD | PCP | | + +------+ + Encounter Details +--------+ + + + + | Date | Type | Department | Care Team | Description | +--------+ + + + + | 11/11/ | Hospital | [facility] | Conversion | Pain | | 2013 | Encounter | CONVERSION DEP [address] | Transaction, | | | | | [address] | Provider Unknown | | | | | [place] | [phone] | | | | | [address] | | | | | | [phone] | | | +--------+ + + + [...] +---------+ + + | lisinopril | Take 30 mg by mouth | | 0 | | | | (PRINIVIL, ZESTRIL) | Daily. | | | | 4 [...] [address] | | | | | | [facility] | | | | | | [place] [address] | | | | | | [phone] | | | | | | | | +--------+ + + + + | 06/08/ | Office | Physical Medicine | Rokcy Santos, | | | 2019 | Visit | and Rehabilitation | [address] | | | | | | [place] | | | | | | [address] | | | | | | | | +--------+ + + + + | 06/16/ | Appointment | Pulmonology | Eveline Jaffe | | | 2019 | | | MD [address] | | | | | | [address] [place] | | | | | | [place] [address] | | | | | | [phone] | | | | | | | | +--------+ + + + + | 06/16/ | Office | Pulmonology | Eveline Jaffe | | | 2019 | Visit | | MD Nichole [address] | | | | | | [address] [place] | | | | | | [place] [address] | | | | | | [phone] | | | | | | | | +--------+ + + + + | 08/24/ | Office | Cardiology | Anisha Lopez DO | | | 2019 | Visit | | [address] | | | | | | [place] | | | | | | [address] | | | | | | | | +--------+ + + + + documented as of this encounter Procedures + +--------+ + + + | Procedure Name | Priori | Date/Time | Associated Diagnosis | Comments | | | ty | | | | + +--------+ + + + | FL C ARM < 1 HOUR | Routin | 07/15/2012 | | Results for this | | | e | 3:36 AM | | procedure are in the | | | | PST | | results section. | + +--------+ + + + documented in this encounter Results FL C-Arm < 1 Hour (07/15/2012 3:36 AM PST) + + | Specimen | + + | | + + + + + | Narrative | Performed At | + + + | This is a non-reportable procedure without a radiologist report and | | | is used for image storage only | | + + + + + | Procedure Note | + + | Raoul Lockwood - 01/14/2019 11:10 AM PDT This is a non-reportable procedure | | without a radiologist report and isused for image storage only | + + documented in this encounter Visit Diagnoses + + | Diagnosis | + + | Pain Generalized pain | + + documented in this encounter"
--- OUTSIDE RECORDS SUMMARY | ~2019-05-05 | XMS | Encounter Summary ---
Demographics + + + | Address | [address] | | | [place] [address] | + + + | Home Phone [...] [place] | | | | | [address] | | + + + + + Care Team Providers + +------+ + | Care Healthcare Business Analyst Name | Role | Phone | + +------+ + | Caitlin Chino MD | PCP | | + +------+ + Reason for Visit + + + | Reason | Comments | + + + | Pulmonary Disease | 10 mo follow up | | Appointment | | + + + Encounter Details +--------+---------+ + + + | Date | Type | Department | Care Team | Description | +--------+---------+ + + + | 09/01/ | Office | [facility] | Gurmeet Vargas | Tachypnea (Primary | | 2019 | Visit | PULMONARY [address] | [address] | Dx); Pneumonia of | | | | [place], | [place] | right lower lobe due | | | | [place] [address] | [place] [address] | to infectious | | | | [phone] | [phone] | organism (HCC); | | | | | | Immunosuppression | | | | | | due to drug therapy; | | | | | | Metastatic lung | | | | | | cancer (metastasis | | | | | | from lung to other | | | | | | site), unspecified | | | | | | [...] + + + | Blood Pressure | 146/82 | 09/01/2018 3:19 PM | | | | | PDT | | + + + + + | Pulse | 104 | 09/01/2018 3:19 PM | | | | | PDT | | + + + + + | Temperature | 36.9 C (98.4 F) | 09/01/2018 3:19 PM | | | | | PDT | | + + + + + | Respiratory Rate | - | - | | + + + + + | Oxygen Saturation | 94% | 09/01/2018 3:19 PM | RA | | | | PDT | | + + + + + | Inhaled Oxygen | - | - | | | Concentration | | | | + + + + + | Weight | 72.3 kg (159 lb 6.3 | 09/01/2018 3:19 PM | | | | oz) | PDT | | + + + + + | Height | 157.5 cm (5' 2") | 09/01/2018 3:19 PM | | | | | PDT | | + + + + + | Body Mass Index | 29.15 | 09/01/2018 3:19 PM | | | | | PDT | | + + + + + documented in this encounter Progress Notes Gurmeet Vargas MD - 09/01/2018 3:20 PM [id number] ex-smoker being admitted from pulmonary clinic with tachypnea from right lower lobe pneumonia, immunosuppression with steroid and methotrexate, incidental pulmonary embolism on warfarin, and metastatic lung ca ncer being controlled with afatinib Today's visit was scheduled longer ago. We had no recent records, so requested Dr. Dennis ortega notes from [place]. Most recent was July, and there was a excellent summary of h er treatment to date. A CT scan apparently showed pulmonary embolism, and the stump of the right lower lobe, so she was begun on anticoagulation and transition to warfarin. However, she became ill in July, and also had bleeding, and was admitted for August 17 to [facility] at [facility] in [place]. We've requested those notes and they were fax ed here. I also requested her imaging from that admission and we were able to see a CT scan of the abdomen and pelvis which included lower lung, and a chest x-ray from August 18. Cara y's chest x-ray when compared to October 22, 2017 showed more density in the right lower lung fi eld and obliteration of the crisp outlines of blood vessels which were seen crisply in 2018. 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 She was discharged on tapering prednisone, but that did not w ork. So August for she saw her doctor and her prednisone was increased again to 40 mg, but T , yesterday by the end of the day, she was feeling bad again, and quite tachypnea can feeling bad today. She received a brief course of antimicrobial therapy it seems before she was admitted August 17, 2018 to [facility] in [place]. In my view, the infiltrate seen today in the right lower lung field could be consistent wit h PCP, which would also be consistent with the raising and lowering of steroid doses. She also was producing sputum and so we collected expectorated sputum and sent it [facility] for PCP immunofluorescence, Gram stain, and routine culture and sensitivity. She said she was using Brio once daily, DuoNeb, Lasix 20 mg, Spiriva HandiHaler, and Dalire sp. She was on methotrexate 18 mg once weekly for her rheumatoid arthritis. She is now als o on 40 or 60 mg of prednisone daily. Physical exam: Pleasant but tachypneic clearly ill who moves by wheelchair now. Weight 72. 3 kg, blood pressure 146/82, pulse 104, temperature 98.4, oxygen saturation 94% on room air. HEENT shows reactive pupils, normal oropharynx. The neck appears normal. The lung arguello are clear on quick exam, cardiac exam is regular. The abdomen is benign. Laboratory evaluation: Sputum pending for PCP, Gram stain, culture and sensitivity. Chest x-ray is as described above suggesting right lower lobe pneumonia. Impression and plan: 1. Right lower lobe pneumonia in immunocompromised patient: I suggest coverage for PCP, co ntinuing her steroid dose, as well as broad-spectrum coverage. 2. COPD exacerbation: She appears to be coping and does not appear to be in respiratory fa ilure 3. Metastatic lung cancer on anti-EGFR therapy: Being managed by Dr. Park. I contacted the on-call hospitalist Dr Rock who quickly came, understood the situation, an d engaged with the patient for admission. I spent 45 minutes, at least half in [id number] counseling. Word processing was used and I apologize for mistakes. Gurmeet Vargas M.D. Pulmonary critical care documented in this encounter Plan of Treatment +--------+ + + + + | Date | Type | Specialty | Care Team | Description | +--------+ + + + + | 05/30/ | Office | Rheumatology | Santosh Sumner, | | | 2018 | Visit | | [address] | | | | | | [facility] | | | | | | [place] [address] | | | | | | [phone] | | | | | | | | +--------+ + + + + | 06/08/ | Office | Physical Medicine | Rocky Santos, | | | 2019 | Visit | and Rehabilitation | [address] | | | | | | [place] | | | | | | [address] | | | | | | | | +--------+ + + + + | 06/16/ | Appointment | Pulmonology | Eveline Jaffe | | | 2019 | | | MD [address] | | | | | | [address] [place] | | | | | | [place] [address] | | | | | | [phone] | | | | | | | | +--------+ + + + + | 06/16/ | Office | Pulmonology | Eveline Jaffe | | | 2019 | Visit | | MD [address]ole [address] | | | | | | [address] [place] | | | | | | [place] [address] | | | | | | [phone] | | | | | | | | +--------+ + + + + | 08/24/ | Office | Cardiology | Anisha Lopez DO | | | 2019 | Visit | | [address] | | | | | | [place] | | | | | | [address] | | | | | | | | +--------+ + + + + documented as of this encounter Procedures + +--------+ + + + | Procedure Name | Priori | Date/Time | Associated Diagnosis | Comments | | | ty | | | | + +--------+ + + + | IMAGING REPORT - | | 08/18/2018 | | Results for this | | EXTERNAL SCAN | | 12:00 AM | | procedure are in the | | | | PDT | | results section. | + +--------+ + + + | IMAGING REPORT - | | 08/18/2018 | | Results for this | | EXTERNAL SCAN | | 12:00 AM | | procedure are in the [...] | | | + +---------+ + + Pneumocystis Jiroveci Ag [facility] (09/01/2018 4:08 PM PDT) + + + + + + | Component | Value | Ref Range | Performed | Pathologist | | | | | At | Signature | + + + + + + | PNEUMOCYSTI | Negative | Negative | REFERENCE | | | S [facility]MEAR, | | | LAB [facility] | | | DFA | | | - BKR | | + + + + + + + + | Specimen | + + | Body Fluid - Coughed | | sputum specimen | | (specimen) | + + + + + | Narrative | Performed At | + + + | Performed at: [address] - [facility] [address], | REFERENCE LAB | | [place], [place] [id number] Pasteurizing Supervisor: Kodak Collins MD, Phone: | YAHIR VALDEZ | | [phone] | | + + + + + + + + | Performing | Address | City/State/Zipcode | Phone Number | | Organization | | | | + + + + + | REFERENCE LAB | [address] | [place] [address] | [phone] | | [facility] | [facility] | | | + + + + + Culture, Respiratory, Lower, Smear (09/01/2018 3:55 PM PDT) + + + + + + | Component | Value | Ref Range | Performed | Pathologist | | | | | At | Signature | + + + + + + | Culture | 4+ Usual Respiratory | | [facility] | | | | [facility] | | [facility] | | [facility] | [facility] | | | | | | C[facility] - | | | | | | LABORATORY | | + + + + + + | Gram Stain | 4+ White Blood Cells | | [facility] | | | Result | | | [facility] | | | | | | MEDICAL | | | | | | CENTER - | | | | | | LABORATORY | | + + + + + + | Gram Stain | 2+ Epithelial cells | | [facility] | | | Result | | | [facility] | | | | | | MEDICAL | | | | | | CENTER - | | | | | | LABORATORY | | + + + + + + | Gram Stain | 3+ Gram positive cocci | | [facility] | | | Result | | | [facility] | | | | | | MEDICAL | | | | | | CENTER - | | | | | | LABORATORY | | + + + + + + + + | Specimen | + + | Body Fluid - Coughed | | sputum specimen | | (specimen) | + + + + + + + | Performing | Address | City/State/Zipcode | Phone Number | | Organization | | | | + + + + + | [facility] | [address] | [place] | [phone] | | [facility] | | [address] | | | - LABORATORY | | | | + + + + + IMAGING REPORT - EXTERNAL SCAN (08/18/2018 12:00 AM PDT) + + + | Narrative | Performed At | + + + | Ordered by an | | | unspecified provider. | | + + + IMAGING REPORT - EXTERNAL SCAN (08/18/2018 12:00 AM PDT) + + + | Narrative | Performed At | + + + | Ordered by an | | | unspecified provider. | | + + + documented in this encounter Visit Diagnoses + + | Diagnosis | + + | Tachypnea - Primary | + + | Pneumonia of right lower lobe due to infectious organism (HCC) | + + | Immunosuppression due to drug therapy | + + | Metastatic lung cancer (metastasis from lung to other site), unspecified laterality | | (HCC) | + + documented in this encounter
--- OUTSIDE RECORDS SUMMARY | ~2019-05-05 | XMS | Encounter Summary ---
Demographics + + + | Address | [address] | | | [place] [address] | + + + | Home Phone | | + + + | Preferred Language | Unknown | + + + | Marital Status | | + + + | Yarsani Affiliation | Unknown | + + + | Race | Unknown | + + + | Ethnic Group | Unknown | + + + Author + + + | Author | [facility] | | | and [place] | + + + | Organization | [facility] | | [...] [place] | | | | | [address] | | + + + + + Care Team Providers + +------+ + | Care Division Order Analyst Name | Role | Phone | [...] | +--------+ + + + + | 11/04/ | Telephone | [facility] | Vivian, | Other | | 2015 | | MED CTR MEDICAL | Lokesh Gramajo MD [address] | | | | | ONCOLOGY CLINIC [address] | [facility] | | | | | [address] | [place] [address] | | | | | [place] [address] | [phone] | | | | | [phone] | | | +--------+ + + + [...] | 2018 | Visit | | [address] | | | | | | [facility] | | | | | | [place] [address] | | | | | | [phone] | | | | | | | | +--------+ + + + + | 06/08/ | Office | Physical Medicine | Rocky Santos, | | | 2019 | Visit | and Rehabilitation | [address] | | | | | | [place] | | | | | | [address] | | | | | | | | +--------+ + + + + | 06/16/ | Appointment | Pulmonology | Eveline Jaffe | | | 2019 | | | MD Nichole Carter | | | | | | [address] [place] | | | | | | [place] [address] | | | | | | [phone] | | | | | | | | +--------+ + + + + | 06/16/ | Office | Pulmonology | Eveline Jaffe | | | 2019 | Visit | | MD Nichole Carter | | | | | | [address] [place] | | | | | | [place], [place] [address] | | | | | | [phone] | | | | | | | | +--------+ + + + + | 08/24/ | Office | Cardiology | Anisha Lopez DO | | | 2019 | Visit | | [address] | | | | | | [place] | | | | | | [address] | | | | | | | | +--------+ + + + + documented as of this encounter Visit Diagnoses + + | Diagnosis | + + | 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
--- OUTSIDE RECORDS SUMMARY | ~2019-05-05 | XMS | Encounter Summary ---
Demographics + + + | Address | [address] | | | [place] [address] | + + + | Home Phone | | + + + | Preferred Language | Unknown | + + + | Marital Status | | + + + | Baptism Affiliation | Unknown | + + + [...] [place] | | | | | [address] | | + + + + + Care Team Providers + +------+ + | Care Automobile Radio Repairer Name | Role | Phone | [...] [address] | | | | | Cough | [place], | [address] | | | | | Procedures | Ayana B, | [place], | | | | | CT Chest w | MD [address] | [place] [address] | | | | | Contrast | [address] | Phone: | | | | | | [place], | [phone] | | | | | | [place] [address] | Fax: | | | | | | | [phone] | +--------+--------+ + + + + Reason for Visit Auth/Cert +--------+--------+ + [...] | +--------+ + + + + | 08/29/ | Hospital | [facility] | [place], | Cough | | 2014 | Encounter | MED CTR [address] | Ayana Looney MD | | | | | [place], | | | | | | [place] [address] | | | | | | [phone] | | | +--------+ + + + [...] | 2018 | Visit | | [address] | | | | | | [facility] | | | | | | [place] [address] | | | | | | [phone] | | | | | | | | +--------+ + + + + | 06/08/ | Office | Physical Medicine | Rocky Santos, | | | 2019 | Visit | and Rehabilitation | MD Varela [address] | | | | | | [place] | | | | | | [address] | | | | | | | | +--------+ + + + + | 06/16/ | Appointment | Pulmonology | Eveline Jaffe | | | 2019 | | | MD Nichole Carter [address] | | | | | | [address] [place] | | | | | | [place] [address] | | | | | | [phone] | | | | | | | | +--------+ + + + + | 06/16/ | Office | Pulmonology | Eveline Jaffe | | | 2019 | Visit | | MD Nichole Carter [address] | | | | | | [address] [place] | | | | | | [place] [address] | | | | | | [phone] | | | | | | | | +--------+ + + + + | 08/24/ | Office | Cardiology | Anisha Lopez DO | | | 2019 | Visit | | [address] | | | | | | [place] | | | | | | [address] | | | | | | | | +--------+ + + + + documented as of this encounter Procedures + +--------+ + + + | Procedure Name | Priori | Date/Time | Associated Diagnosis | Comments | | | ty | | | | + +--------+ + + + | CT CHEST W CONTRAST | Routin | 08/29/2014 | Cough | Results for this | | | e | 12:50 PM | | procedure are in the | | | | PDT | | results section. | + +--------+ + + + documented in this encounter Results CT Chest w Contrast (08/29/2014 12:50 PM PDT) + + | Specimen | + + | | + + + + + | Narrative | Performed At | + + + | ENHANCED CHEST CT 08/29/2014 12:47 PM CLINICAL HISTORY: cough and | [facility] | | dyspnea, had improved in July, worsened again after starting | [facility] | | chemo and XRT, known recurrent lung cancer COMPARISON: [facility] | | radiographs August 24 and July 28, radiation therapy planning CT | - IMAGING | | July 26, PET/CT July 2013, chest CT June 2013 and December 2012 | | | TECHNIQUE: Axial images are performed through the chest following | | | the uneventful intravenous administration of 75 mL Omnipaque-350 | | | contrast. Multiplanar reformations are also performed. FINDINGS: | | | An implanted left internal jugular port catheter is again visible, | | | ending near the cavoatrial junction. Calcified plaque is present in | | | the thoracic aorta, proximal great vessels and coronary arteries. | | | Changes of right lower lobectomy are again evident. There is a | | | lobulated, heterogeneously hypoattenuating mass in the right hilum, | | | interposed between the main right upper and middle lobe bronchi and | | | measuring up to approximately 3.1 x 2.3 cm in axial dimension, which | | | is similar to the therapy planning study of July 26, allowing for | | | differences in technique. The mass narrows the adjacent main left | | | upper lobe pulmonary artery and abuts the main middle lobe pulmonary | | | artery as well. No airway narrowing/occlusion is apparent. No | | | pathologic lymph node enlargement is visible elsewhere in the chest. | | | There is no pneumothorax or pleural effusion. Changes of | | | centrilobular emphysema are again visible. A small, thin-walled | | | lucency posteriorly in the right middle lobe on image 70 is noted, | | | with opacity visible at this level on previous therapy planning | | | images having resolved in the interim. There is a stable 3.5 mm | | | nodule along the course of the left major fissure on image 64 dating | | | back to December 2012. A tiny, calcified left lower lobe granuloma is | | | again visible. No new nodule or consolidation is evident. Plate | | | and screw fusion hardware is again visible within the imaged lower | | | cervical spine. There is rightward thoracic curvature and early | | | multilevel spondylosis. No lytic or blastic bone lesion is | | | identified. The gallbladder is surgically absent, and there is | | | stable dilation of the imaged common bile duct up to a diameter of | | | 1.6 cm, with persistent mild prominence of the intrahepatic biliary | | | tree as well. There is generalized hypoattenuation of the imaged | | | liver, consistent with fatty infiltration. Two tiny, rounded | | | hypodensities in the superior liver on images 90 and 94 are stable | | | dating back to December 2012 and favor cysts. The imaged upper | | | abdomen is otherwise unremarkable. IMPRESSION - 1. 3.1 CM | | | LOBULATED MASS IN THE RIGHT HILUM, SUSPICIOUS FOR MALIGNANCY AND | | | SIMILAR IN SIZE COMPARED WITH THERAPY PLANNING IMAGES OF JULY 26, | | | ALLOWING FOR DIFFERENCES IN TECHNIQUE. THERE IS NO EVIDENCE OF | | | METASTATIC DISEASE ELSEWHERE IN THE CHEST. CHANGES OF RIGHT LOWER | | | LOBECTOMY ARE AGAIN EVIDENT. 2. CENTRILOBULAR EMPHYSEMA. 3. | | | ATHEROSCLEROSIS, SCOLIOSIS AND SPONDYLOSIS. 4. HYPOATTENUATION | | | OF THE IMAGED LIVER CONSISTENT WITH FATTY INFILTRATION AND STABLE | | | DILATION OF THE IMAGED BILIARY TREE, LIKELY RELATED TO THE PATIENT'S | | | POST-CHOLECYSTECTOMY STATUS. Dictated and Signed by: Herminio Levi | | | Electronically signed: 08/30/2014 7:30 AM | | + + + + + | Procedure Note | + + | Fabián, Rad Results In - 08/30/2014 7:33 AM PDT ENHANCED CHEST CT 08/29/2014 12:47 PM | | | | CLINICAL HISTORY: cough and dyspnea, had improved in July, worsened again | | after starting chemo and XRT, known recurrent lung cancer | | | | COMPARISON: Chest radiographs August 24 and July 28, radiation therapy | | planning CT July 26, PET/CT July 2013, chest CT June 2013 and December | | 2012 | | | | TECHNIQUE: Axial images are performed through the chest following the uneventful | | intravenous administration of 75 mL Omnipaque-350 contrast. Multiplanar | | reformations are also performed. | | | | FINDINGS: An implanted left internal jugular port catheter is again visible, | | ending near the cavoatrial junction. Calcified plaque is present in the | | thoracic aorta, proximal great vessels and coronary arteries. Changes of right | | lower lobectomy are again evident. There is a lobulated, heterogeneously | | hypoattenuating mass in the right hilum, interposed between the main right upper | | and middle lobe bronchi and measuring up to approximately 3.1 x 2.3 cm in axial | | dimension, which is similar to the therapy planning study of July 26, | | allowing for differences in technique. The mass narrows the adjacent main left | | upper lobe pulmonary artery and abuts the main middle lobe pulmonary artery as | | well. No airway narrowing/occlusion is apparent. No pathologic lymph node | | enlargement is visible elsewhere in the chest. There is no pneumothorax or | | pleural effusion. | | | | Changes of centrilobular emphysema are again visible. A small, thin-walled | | lucency posteriorly in the right middle lobe on image 70 is noted, with opacity | | visible at this level on previous therapy planning images having resolved in the | | interim. There is a stable 3.5 mm nodule along the course of the left major | | fissure on image 64 dating back to December 2012. A tiny, calcified left lower | | lobe granuloma is again visible. No new nodule or consolidation is evident. | | | | Plate and screw fusion hardware is again visible within the imaged lower | | cervical spine. There is rightward thoracic curvature and early multilevel | | spondylosis. No lytic or blastic bone lesion is identified. The gallbladder is | | surgically absent, and there is stable dilation of the imaged common bile duct | | up to a diameter of 1.6 cm, with persistent mild prominence of the intrahepatic | | biliary tree as well. There is generalized hypoattenuation of the imaged liver, | | consistent with fatty infiltration. Two tiny, rounded hypodensities in the | | superior liver on images 90 and 94 are stable dating back to December 2012 and | | favor cysts. The imaged upper abdomen is otherwise unremarkable. | | | | IMPRESSION - | | 1. 3.1 CM LOBULATED MASS IN THE RIGHT HILUM, SUSPICIOUS FOR MALIGNANCY AND | | SIMILAR IN SIZE COMPARED WITH THERAPY PLANNING IMAGES OF JULY 26, ALLOWING | | FOR DIFFERENCES IN TECHNIQUE. THERE IS NO EVIDENCE OF METASTATIC DISEASE | | ELSEWHERE IN THE CHEST. CHANGES OF RIGHT LOWER LOBECTOMY ARE AGAIN EVIDENT. | | | | 2. CENTRILOBULAR EMPHYSEMA. | | | | 3. ATHEROSCLEROSIS, SCOLIOSIS AND SPONDYLOSIS. | | | | 4. HYPOATTENUATION OF THE IMAGED LIVER CONSISTENT WITH FATTY INFILTRATION AND | | STABLE DILATION OF THE IMAGED BILIARY TREE, LIKELY RELATED TO THE PATIENT'S | | POST-CHOLECYSTECTOMY STATUS. | | | | Dictated and Signed by: Herminio Levi MD | | Electronically signed: 08/30/2014 7:30 AM | + + + + + + + | Performing | Address | City/State/Zipcode | Phone Number | | Organization | | | | + + + + + | [facility] | [address] | [place] | [phone] | | [facility] | | [address] | | | - IMAGING | | | | + + + + + documented in this encounter Visit Diagnoses + + | Diagnosis | + + | Cough | + + documented in this encounter Administered Medications + +--------+ +--------+------+------+ | Medication Order | MAR | Action | Dose | Rate | Site | | | Action | Date | | | | + +--------+ +--------+------+------+ | iohexol (OMNIPAQUE 350) 350 | Given | 08/30/19 | 75 mLs | | | | mg/mL injection 75 mL 75 mL, | | 15 12:48 | | | | | Intravenous, ONCE PRN, Other, | | PM PDT | | | | | Starting 08/29/14 at 1247, For | | | | | | | 1 dose, Cat Scanner | | | | | | + +--------+ +--------+------+------+ +---+---+ | | | +---+---+ documented in this encounter"
--- OUTSIDE RECORDS SUMMARY | ~2019-05-05 | XMS | Encounter Summary ---
Demographics + + + | Address | [address] | | | [place] [address] | + + + | Home Phone | | + + + | Preferred Language | Unknown | + + + | Marital Status | | + + + | Yazdanism Affiliation | Unknown | + + + [...] [place] | | | | | [address] | | + + + + + Care Team Providers + +------+ + | Care Mobile Heavy Equipment Mechanic Name | Role | Phone | + +------+ + | Davis Ivan MD | PCP | | + +------+ + Encounter Details +--------+ + + + + | Date | Type | Department | Care Team | Description | +--------+ + + + + | 08/30/ | Hospital | [facility] GENERIC IP | Conversion | Pain | | 2014 | Encounter | CONVERSION DEP [address] | Transaction, | | | | | [address] | Provider Unknown | | | | | [place] | [phone] | | | | | [address] | | | | | | [phone] | | | +--------+ + + + [...] | | | | | | [place] [address] | | | | | | [phone] | | | | | | | | +--------+ + + + + | 06/08/ | Office | Physical Medicine | Rocky Santos, | | | 2019 | Visit | and Rehabilitation | MD [address] | | | | | | [place] | | | | | | [address] | | | | | | | | +--------+ + + + + | 06/16/ | Appointment | Pulmonology | Eveline Jaffe | | 2019 | | | MD Nichole [address] | | | | | | [address] | | | | | | [place] [address] | | | | | | [phone] | | | | | | | | +--------+ + + + + | 06/16/ | Office | Pulmonology | Eveline Jaffe | | | 2019 | Visit | | MD Raul [address] | | | | | | [place] | | | | | | [place] [address] | | | | | | [phone] | | | | | | | | +--------+ + + + + | 08/24/ | Office | Cardiology | Anisha Lopez DO | | | 2019 | Visit | | [address] | | | | | | [place] | | | | | | [address] | | | | | | | | +--------+ + + + + documented as of this encounter Procedures + +--------+ + + + | Procedure Name | Priori | Date/Time | Associated Diagnosis | Comments | | | ty | | | | + +--------+ + + + | XR THORACIC SPINE 3 | Routin | 10/30/2010 | | Results for this | | VW | e | 3:04 AM | | procedure are in the | | | | PDT | | results section. | + +--------+ + + + documented in this encounter Results XR Thoracic Spine 3 Vw (10/30/2010 3:04 AM PDT) + + | Specimen | + + | | + + + + + | Narrative | Performed At | + + + | This is a non-reportable procedure without a radiologist report and | | | is used for image storage only | | + + + + + | Procedure Note | + + | Raoul Lockwood Kristel - 01/14/2019 11:10 AM PDT This is a non-reportable procedure | | without a radiologist report and isused for image storage only | + + documented in this encounter Visit Diagnoses + + | Diagnosis | + + | Pain Generalized pain | + + documented in this encounter"
--- OUTSIDE RECORDS SUMMARY | ~2019-05-05 | XMS | Encounter Summary ---
Demographics + + + | Address | [address] | | | [place] [address] | + + + | Home Phone [...] [place] | | | | | [address] | | + + + + + Care Team Providers + +------+ + | Care Obstetrics Specialist Name | Role | Phone | + +------+ + | Davis Ivan MD | PCP | | + +------+ + Encounter Details +--------+ + + + + | Date | Type | Department | Care Team | Description | +--------+ + + + + | 08/21/ | Orders Only | [facility] | Jimmy Banegas DO | Cough due to | | 2014 | | [facility] | [address] | bronchospasm | | | | ONCOLOGY [address] | [place] | (Primary Dx) | | | | [place], | [address] | | | | | [place] [address] | | | | | | [phone] | | | +--------+ + + + [...] | | | | | [place] [address] | | | | | | [phone] | | | | | | | | +--------+ + + + + | 06/08/ | Office | Physical Medicine | Rocky Santos | | | 2019 | Visit | and Rehabilitation | [address] | | | | | | [place] | | | | | | [address] | | | | | | | | +--------+ + + + + | 06/16/ | Appointment | Pulmonology | Eveline Jaffe | | | 2019 | | | MD Nichole Carter [address] | | | | | | [address] [place] | | | | | | [place] [address] | | | | | | [phone] | | | | | | | | +--------+ + + + + | 06/16/ | Office | Pulmonology | Eveline Jaffe | | 2019 | Visit | | MD Nichole Carter [address] | | | | | | [address] [place] | | | | | | [place] [address] | | | | | | [phone] | | | | | | | | +--------+ + + + + | 08/24/ | Office | Cardiology | Anisha Lopez DO | | 2019 | Visit | | [address] | | | | | | [place] | | | | | | [address] | | | | | | | | +--------+ + + + + documented as of this encounter Visit Diagnoses + + | Diagnosis | + + | Cough due to bronchospasm - Primary Acute bronchospasm | + + documented in this encounter"
--- OUTSIDE RECORDS SUMMARY | ~2019-05-05 | XMS | Encounter Summary ---
Demographics + + + | Address | [address] | | | [place] [address] | + + + | Home Phone | | + + + | Preferred Language | Unknown | + + + | Marital Status | | + + + | Restorationism Affiliation | Unknown | + + + | Race | Unknown | + + + | Ethnic Group | Unknown | + + + Author + + + | Author | [facility] | | | and [place] | + + + | Organization | [facility] | | | [...] [place] | | | | | [address] | | + + + + + Care Team Providers + +------+ + | Care Medical Records Coordinator Name | Role | Phone | + +------+ + | Davis Ivan MD | PCP | | + +------+ + Reason for Visit +---------+ + | Reason | Comments | +---------+ + | Results | sputum | +---------+ + Encounter Details +--------+ + + + + | Date | Type | Department | Care Team | Description | +--------+ + + + + | 06/29/ | Telephone | [facility] | Claudia, | Results (sputum) | | 2015 | | PULMONARY [address] | Ayana Looney MD | | | | | [place], | | | | | | [place] [address] | | | | | | [phone] | | | +--------+ + + + [...] | | | | | | [facility] | | | | | | [place] [address] | | | | | | [phone] | | | | | | | | +--------+ + + + + | 06/08/ | Office | Physical Medicine | Rocky Santos, | | | 2019 | Visit | and Rehabilitation | [address] | | | | | | [place] | | | | | | [address] | | | | | | | | +--------+ + + + + | 06/16/ | Appointment | Pulmonology | Eveline Jaffe | | | 2019 | | | MD Nichole Carter [address] | | | | | | [address] [place] | | | | | | [place] [address] | | | | | | [phone] | | | | | | | | +--------+ + + + + | 06/16/ | Office | Pulmonology | Eveline Jaffe | | | 2019 | Visit | | MD Nichole Carter [address] | | | | | | [address] [place] | | | | | | [place] [address] | | | | | | [phone] | | | | | | | | +--------+ + + + + | 08/24/ | Office | Cardiology | Anisha Lopez DO | | | 2019 | Visit | | [address] | | | | | | [place] | | | | | | [address] | | | | | | | | +--------+ + + + + documented as of this encounter Visit Diagnoses Not on filedocumented in this encounter"
--- OUTSIDE RECORDS SUMMARY | ~2019-05-05 | XMS | Encounter Summary ---
Demographics + + + | Address | [address] | | | [place] [address] | + + + | Home Phone | | + + + | Preferred Language | Unknown | + + + | Marital Status | | + + + | Samaritan Affiliation | Unknown | + + + [...] [place] | | | | | [address] | | + + + + + Care Team Providers + +------+ + | Care Entrepreneurship Program Director Name | Role | Phone | [...] | +--------+ + + + + | 09/26/ | Telephone | [facility] | Adelita Lu MD | Other | | 2014 | | [facility] | [address] [facility] | | | | | ONCOLOGY CLINIC [address] | [place] | | | | | [address] [facility] | [address] | | | | | [place] [address] | [phone] | | | | | [phone] | | | +--------+ + + + [...] | | | | | [facility] | | | | | | [place] [address] | | | | | | [phone] | | | | | | | | +--------+ + + + + | 06/08/ | Office | Physical Medicine | Rocky Santos, | | | 2019 | Visit | and Rehabilitation | [address] | | | | | | [place] | | | | | | [address] | | | | | | | | +--------+ + + + + | 06/16/ | Appointment | Pulmonology | Eveline Jaffe | | | 2019 | | | MD Nichole Carter [address] | | | | | | [address] [place] | | | | | | [place] [address] | | | | | | [phone] | | | | | | | | +--------+ + + + + | 06/16/ | Office | Pulmonology | Eveline Jaffe | | | 2019 | Visit | | MD Nichole Carter [address] | | | | | | [address] [place] | | | | | | [place], [place] [address] | | | | | | [phone] | | | | | | | | +--------+ + + + + | 08/24/ | Office | Cardiology | Anisha Lopez DO | | | 2019 | Visit | | [address] | | | | | | [place] | | | | | | [address] | | | | | | | | +--------+ + + + + documented as of this encounter Visit Diagnoses Not on filedocumented in this encounter"
--- OUTSIDE RECORDS SUMMARY | ~2019-05-05 | XMS | Encounter Summary ---
Demographics + + + | Address | [address] | | | [place] [address] | + + + | Home Phone [...] [place] | | | | | [address] | | + + + + + Care Team Providers + +------+ + | Care Life Insurance Salesperson Name | Role | Phone | + +------+ + | Davis Ivan MD | PCP | | + +------+ + Reason for Visit +---------+ + | Reason | Comments | +---------+ + | Post Op | Post op Left Index, Thumb and Trigger Finger Release | | | DOS:12/14/2018 *SUTURE REMOVAL* | +---------+ + Evaluate & Treat (Routine) + +--------+ + + + + | Status | Reason | Specialty | Diagnoses / | Referred By | Referred To | | | | | Procedures | Contact | Contact | + +--------+ + + + + | Authorized | | Orthopedic | Diagnoses | Matti, | [place], | | | | Surgery | 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 | [address] | MD Matthias | | | | | is, | [facility] [place] | [address] | | | | | unspecified | [place], | [place] | | | | | shoulder | [place] [address] | [place] | | | | | | Phone: | [address] | | | | | | [phone] | Phone: | | | | | | Fax: | [phone] | | | | | | [phone] | Fax: | | | | | | | [phone] | + +--------+ + + + + Encounter Details +--------+---------+ + + + | Date | Type | Department | Care Team | Description | +--------+---------+ + + + | 12/27/ | Office | [facility] | Giuliano Padilla, | Postop check | | 2019 | Visit | ORTHOPEDIC SURGERY | [address] | (Primary Dx) | | | | [address] [facility] | [place] | | | | | [place] | [address] | | | | | [address] | | | | | | [phone] | | | +--------+---------+ + + + [...] + + + + | Weight | 68.5 kg (151 lb) | 12/27/2018 1:23 PM | | | | | PDT | | + + + + + | Height | 157.5 cm (5' 2") | 12/27/2018 1:23 PM | | | | | PDT | | + + + + + | Body Mass Index | 27.62 | 12/27/2018 1:23 PM | | | | | PDT [...] documented as of this encounter Progress Notes Giuliano Padilla MD - 12/27/2018 1:30 PM PDTPatient returns status post trigger finger rel eases left hand She is doing very well without any pain or triggering She got no hematoma in her hand The wounds are healed without complication Sutures are removed today She has good range of motion of all digits She will let us know if she has any concerns over time documented in this encounter Plan of Treatment +--------+ + + + + | Date | Type | Specialty | Care Team | Description | +--------+ + + + + | 05/30/ | Office | Rheumatology | Santosh Sumner, | | | 2018 | Visit | | [address] | | | | | | [facility] | | | | | | [place] [address] | | | | | | [phone] | | | | | | | | +--------+ + + + + | 06/08/ | Office | Physical Medicine | Rocky Santos, | | | 2019 | Visit | and Rehabilitation | MD [address] | | | | | | [place] | | | | | | [address] | | | | | | | | +--------+ + + + + | 06/16/ | Appointment | Pulmonology | Eveline Jaffe | | | 2019 | | | MD [address] | | | | | | [address] [place] | | | | | | [place] [address] | | | | | | [phone] | | | | | | | | +--------+ + + + + | 06/16/ | Office | Pulmonology | Eveline Jaffe | | | 2019 | Visit | | MD [address] | | | | | | [address] [place] | | | | | | [place] [address] | | | | | | [phone] | | | | | | | | +--------+ + + + + | 08/24/ | Office | Cardiology | Anisha Lopez DO | | | 2019 | Visit | | [address] | | | | | | [place], [place] | | | | | | [address] | | | | | | | | +--------+ + + + + documented as of this encounter Visit Diagnoses + + | Diagnosis | + + | Postop check - Primary Follow-up examination, following unspecified surgery | + + documented in this encounter
--- OUTSIDE RECORDS SUMMARY | ~2019-05-05 | XMS | Encounter Summary ---
Demographics + + + | Address | [address] | | | [place] [address] | + + + | Home Phone | | + + + | Preferred Language | Unknown | + + + | Marital Status | | + + + | Sabianist Affiliation | Unknown | + + + [...] [place] | | | | | [address] | | + + + + + Care Team Providers + +------+ + | Care Garde Manger Name | Role | Phone | + +------+ + | Davis Ivan MD | PCP | | + +------+ + Reason for Visit +--------+ + | Reason | Comments | +--------+ + | Other | | +--------+ + Encounter Details +--------+--------+ + + + | Date | Type | Department | Care Team | Description | +--------+--------+ + + + | 08/03/ | Refill | [facility] | Adelita Lu MD | Other | | 2014 | | MED CTR MEDICAL | [address] [facility] | | | | | [facility]Y CL[facility] [address] | [place], [place] | | | | | [facility] | [address] | | | | | [place] [address] | [phone] | | | | | [phone] | | | +--------+--------+ + + + [...] | | | | | | [place] [address] | | | | | | [phone] | | | | | | | | +--------+ + + + + | 06/08/ | Office | Physical Medicine | Rocky Santos, | | | 2019 | Visit | and Rehabilitation | [address] | | | | | | [place] | | | | | | [address] | | | | | | | | +--------+ + + + + | 06/16/ | Appointment | Pulmonology | Eveline Jaffe | | | 2019 | | | MD [address] | | | | | | [address] [place] | | | | | | [place] [address] | | | | | | [phone] | | | | | | | | +--------+ + + + + | 06/16/ | Office | Pulmonology | Eveline Jaffe | | | 2019 | Visit | | MD [address] | | | | | | [address] [place] | | | | | | [place] [address] | | | | | | [phone] | | | | | | | | +--------+ + + + + | 08/24/ | Office | Cardiology | Anisha Lopez DO | | | 2019 | Visit | | [address] | | | | | | [place] | | | | | | [address] | | | | | | | | +--------+ + + + + documented as of this encounter Visit Diagnoses + + | Diagnosis | + + | Infection - Primary Unspecified infectious and parasitic diseases | + + documented in this encounter"
--- OUTSIDE RECORDS SUMMARY | ~2019-05-05 | XMS | Encounter Summary ---
Demographics + + + | Address | [address] | | | [place] [address] | + + + | Home Phone [...] [place] | | | | | [address] | | + + + + + Care Team Providers + +------+ + | Care Machine Cage Maker Name | Role | Phone | [...] | | | | Diagnoses | | Randy, | | | | | Trigger | | Giuliano Briones MD | | | | | finger of | | [address] | | | | | left thumb | | [place], | | | | | Trigger | | [place] [address] | | | | | finger, left | | Phone: | | | | | ring finger | | [phone] | | | | | Trigger | | Fax: | | | | | middle | | [phone] | | | | | finger of | | | | | | | left hand | | | | | | | Procedures | | | | | | | [place] | | | | | | | FINGER | | | | | | | TENDON | | | | | | | SHEATH Left | | | | | | | Thumb, Long | | | | | | | and Ring | | | | | | | Trigger | | | | | | | Finger | | | | | | | Release | | | +--------+--------+ + + + + Encounter Details +--------+---------+ + + + | Date | Type | Department | Care Team | Description | +--------+---------+ + + + | 09/28/ | Surgery | [facility] | Giuliano Padilla, | Canceled | | 2019 | | MED CTR OR INTRA OP | [address] | PROCEDURE NOT | | | | [address] | [place] | PERFORMED - Left | | | | [place], [place] | [address] | Thumb, Long and | | | | [address] | | Index Trigger Finger | | | | [phone] | | Release | +--------+---------+ + + + Social History [...] + + + | Blood Pressure | 137/76 | 09/28/2018 12:17 PM | | | | | PDT | | + + + + + | Pulse | 99 | 09/28/2018 12:17 PM | | | | | PDT | | + + + + + | Temperature | 37.2 C (99 F) | 09/28/2018 12:17 PM | | | | | PDT | | + + + + + | Respiratory Rate | 16 | 09/28/2018 12:17 PM | | | | | PDT | | + + + + + | Oxygen Saturation | 95% | 09/28/2018 12:17 PM | | | | | PDT | | + + + + + | Inhaled Oxygen | - | - | | | Concentration | | | | + + + + + | Weight | 75.3 kg (166 lb 0.1 | 09/28/2018 12:17 PM | | | | oz) | PDT | | + + + + + | Height | 157.5 cm (5' 2") | 09/28/2018 12:17 PM | | | | | PDT | | + + + + + | Body Mass Index | 30.36 | 09/28/2018 12:17 PM | | | | | PDT [...] | | tablet | weekly and 4 06/02 | | | | | | | [...] 1 each | 0 | 09/07/19 | 10/16/201 | | Therapy Supplies | nebulizer | [...] | | | | | [place] [address] | | | | | | [phone] | | | | | | | | +--------+ + + + + | 06/08/ | Office | Physical Medicine | Rocky Santos, | | | 2019 | Visit | and Rehabilitation | [address] | | | | | | [place] | | | | | | [address] | | | | | | | | +--------+ + + + + | 06/16/ | Appointment | Pulmonology | Eveline Jaffe | | 2019 | | | MD [address] | | | | | | [address] [place] | | | | | | [place] [address] | | | | | | [phone] | | | | | | | | +--------+ + + + + | 06/16/ | Office | Pulmonology | Eveline Jaffe | | | 2019 | Visit | | MD [address] | | | | | | [address] [place] | | | | | | [place] [address] | | | | | | [phone] | | | | | | | | +--------+ + + + + | 08/24/ | Office | Cardiology | Anisha Lopez DO | | | 2019 | Visit | | [address] | | | | | | [place] | | | | | | [address] | | | | | | | | +--------+ + + + + documented as of this encounter Visit Diagnoses + + | Diagnosis | + + | Trigger finger of left thumb | + + | Trigger finger, left ring finger | + + | Trigger middle finger of left hand Trigger finger (acquired) | + + documented in this encounter Admitting Diagnoses + + | Diagnosis | + + | Trigger finger of left thumb | + + | Trigger finger, left ring finger | + + | Trigger middle finger of left hand Trigger finger (acquired) | + + documented in this encounter Administered Medications + +--------+ +--------+------+------+ | Medication Order | MAR | Action | Dose | Rate | Site | | | Action | Date | | | | + +--------+ +--------+------+------+ | acetaminophen (TYLENOL) tablet | Given | 09/29/19 | 650 mg | | | | 650 mg 650 mg, Oral, ONCE, Tue | | 19 12:54 | | | | | 09/28/18 at 1300, For 1 dose, | | PM PDT | | | | | Pre-op | | | | | | + +--------+ +--------+------+------+ +---+---+ | | | +---+---+ + +-------+ +--------+---+---+ | celecoxib (CELEBREX) capsule | Given | 09/29/19 | 200 mg | | | | 200 mg 200 mg, Oral, ONCE, Thu | | 12:54 | | | | | 09/28/18 at 1300, For 1 dose, | | PM PDT | | | | | Doses > 200 mg should be given | | | | | | | with meals., Pre-op | | | | | | + +-------+ +--------+---+---+ + +---+ | | | + +---+ | dextrose 50% injection 12.5-25 | | | g 12.5-25 g, Intravenous, EVERY | | | 15 MIN PRN, Low Blood Sugar, Give | | | 12.5g (25 mL) IV if blood | | | glucose 50-69 mg/dL. Give 25g | | | (50 mL) IV if blood glucose < 50, | | | Starting 09/28/18 at 1235, | | | Repeat in 15 min if blood glucose | | | remains < 70 mg/dL. Repeat | | | blood glucose in 30 min once | | | blood glucose > 70., Pre-op | | + +---+ | | | + +---+ + +-------+ +--------+---+---+ | gabapentin (NEURONTIN) capsule | Given | 09/29/19 | 600 mg | | | | 600 mg 600 mg, Oral, ONCE, Tue | | 19 12:54 | | | | | 09/28/18 at 1300, For 1 dose, | | PM PDT | | | | | Pre-op | | | | | | + +-------+ +--------+---+---+ +---+---+ | | | +---+---+ + +---------+ +--------+-------+---+ | lactated ringers (LR) infusion | New Bag | 09/29/19 | 1,000 | 100 | | | at 10-100 mL/hr, Intravenous, | | 19 1:04 | mLs | mL/hr | | | CONTINUOUS, Starting 09/28/18 | | PM PDT | | | | | at 1300, TKO., Pre-op | | | | | | + +---------+ +--------+-------+---+ +---+---+ | | | +---+---+ documented in this encounter
--- OUTSIDE RECORDS SUMMARY | ~2019-05-05 | XMS | Encounter Summary ---
Demographics + + + | Address | [address] | | | [place] [address] | + + + | Home Phone | | + + + | Preferred Language | Unknown | + + + | Marital Status | | + + + | Hoahaoism Affiliation | Unknown | + + + | Race | Unknown | + + + | Ethnic Group | Unknown | + + + Author + + + | Author | [facility] | | | and [place] | + + + | Organization | [facility] | | | [...] [place] | | | | | [address] | | + + + + + Care Team Providers + +------+ + | Care Process Safety Management Engineer Name | Role | Phone | + [...] Description | +--------+--------+ + + + | 11/20/ | Refill | [facility] | Vivian, | Medication Refill | | 2014 | | MED CTR MEDICAL | Lokesh Gramajo MD [address] | | | | | [address] | [facility] | | | | | [facility] | [place] [address] | | | | | [place] [address] | [phone] | | | | | [phone] | | | +--------+--------+ + + + [...] | | | | | [place] [address] | | | | | | [phone] | | | | | | | | +--------+ + + + + | 06/08/ | Office | Physical Medicine | Rocky Santos, | | | 2019 | Visit | and Rehabilitation | [address] | | | | | | [place] | | | | | | [address] | | | | | | | | +--------+ + + + + | 06/16/ | Appointment | Pulmonology | Eveline Jaffe | | 2019 | | | MD [address] | | | | | | [address] [place] | | | | | | [place] [address] | | | | | | [phone] | | | | | | | | +--------+ + + + + | 06/16/ | Office | Pulmonology | Eveline Jaffe | | | 2019 | Visit | | MD [address] | | | | | | [address] [place] | | | | | | [place] [address] | | | | | | [phone] | | | | | | | | +--------+ + + + + | 08/24/ | Office | Cardiology | Anisha Lopez DO | | 2019 | Visit | | [address] | | | | | | [place] | | | | | | [address] | | | | | | | | +--------+ + + + + documented as of this encounter Visit Diagnoses + + | Diagnosis | + + | Gastroesophageal reflux disease without esophagitis - Primary Esophageal reflux | + + documented in this encounter"
--- OUTSIDE RECORDS SUMMARY | ~2019-05-05 | XMS | Encounter Summary ---
Demographics + + + | Address | [address] | | | [place] [address] | + + + | Home Phone | | + + + | Preferred Language | Unknown | + + + | Marital Status | | + + + | Anglican Affiliation | Unknown | + + + | Race | Unknown | + + + | Ethnic Group | Unknown | + + + Author + + + | Author | [facility] | | | and [place] | + + + | Organization | [facility] | | | and [...] [place] | | | | | [address] | | + + + + + Care Team Providers + +------+ + | Care Software Designer Name | Role | Phone | + +------+ + | Caitlin Chino MD | PCP | | + +------+ + Reason for Referral Diagnostic/Screening (Routine) + +--------+ + + + + | Status | Reason | Specialty | Diagnoses / | Referred By | Referred To | | | | | Procedures | Contact | Contact | + +--------+ + + + + | Authorized | | | Diagnoses | [place], | [address] | | | | | Impingement | [facility] | | | | | syndrome of | Confucianist, | [address] | | | | | left | MD [address] | | | | | shoulder | [address] | [place], [place] | | | | | Muscle left | [place], | [address] | | | | | arm weakness | [place] | Phone: | | | | | Procedures | [address] | [phone] | | | | | MRI | Phone: | Fax: | | | | | Shoulder | [phone] | [phone] | | | | | Left wo | Fax: | | | | | | Contrast | [phone] | | + +--------+ + + + + Reason for Visit + + + | Reason | Comments | + + + | Follow-up, Office | | | Visit | | + + + | Shoulder Pain | Bilateral | + + + Evaluate & Treat (Routine) + +--------+ + + + + | Status | Reason | Specialty | Diagnoses / | Referred By | Referred To | | | | | Procedures | Contact | Contact | + +--------+ + + + + | Authorized | | Orthopedic | Diagnoses | [place], | [place], | | | | Surgery | 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 | [address] | MD Matthias | | | | | is, | [address] | [address] | | | | | unspecified | [place], | [place] | | | | | shoulder | [place] [address] | [place] | | | | | | Phone: | [address] | | | | | | [phone] | Phone: | | | | | | Fax: | [phone] | | | | | | [phone] | Fax: | | | | | | | [phone] | + +--------+ + + + + Encounter Details +--------+---------+ + + + | Date | Type | Department | Care Team | Description | +--------+---------+ + + + | 03/01/ | Office | [facility] | Rodney Worthy | Impingement syndrome | | 2019 | Visit | ORTHOPEDIC SURGERY | MD [address] | of left shoulder | | | | [address] | [address] [facility] | (Primary Dx); Muscle | | | | [place], [place] | [place] [address] | left arm weakness | | | | [address] | [phone] | | | | | [phone] | | | +--------+---------+ + + + [...] | Weight | 66.5 kg (146 lb 9.7 | 03/01/2019 2:02 PM | | | | oz) | PDT | | + + + + + | Height | 157.5 cm (5' 2") | 03/01/2019 2:02 PM | | | | | PDT | | + + + + + | Body Mass Index | 26.81 | 03/01/2019 2:02 PM | | | | | PDT [...] Instructions Patient Instructions Rodney Worthy MD - 03/01/2019 2:30 PM PDT Shoulder Impingement Syndrome The rotator cuff is a group of muscles and tendons that surround the shoulder joint. These muscles and tendons hold the arm in its joint. They help the shoulder move. The rotator cuff muscles and tendons can become irritated from repeated rubbing against the shoulder bone. T his is called shoulder impingement syndrome or rotator cuff tendonitis. If your case is mild, you may only need to rest the shoulder and then do certain exercises to strengthen the muscles. You can also take anti-inflammatory medicines. Steroid injections into the shoulder can ease inflammation. But you can have only a limited number of these. I f the condition gets worse, your shoulder muscles may become thin and weak. This can lead to a rotator cuff tear. Symptoms of shoulder impingement syndrome may include: Shoulder pain that gets worse when you raise your arm overhead Weakness of the shoulder muscles when you use your arm overhead Popping and clicking when you move your shoulder Shoulder pain that wakes you up at night, especially when you sleep on the affected shou lder Sudden pain in your shoulder when you lift or reach Home care Follow these tips to take care of yourself at home: Avoid activities that make your pain worse. These include raising your arms overhead, re peating the same motion over and over, or lifting heavy objects. Don t hold your arm in one position for a long time. Keep it moving. Put an ice pack on the sore area for 20 minutes every 1 to 2 hours for the first day. Yo u can make an ice pack by putting ice cubes in a plastic bag. Wrap the bag in a towel before putting it on your shoulder. A frozen bag of peas or something similar can also be used as an ice pack. Use the ice packs 3 to 4 times a day for the next 2 days. Continue using the ic e to relieve of pain and swelling as needed. You may take acetaminophen or ibuprofen to control pain, unless another medicine was pre scribed. If prednisone was prescribed, don t take anti-inflammatory medicines. If you have chronic liver or kidney disease or ever had a stomach ulcer or gastrointestinal bleeding, t alk with your doctor before using these medicines. After your symptoms ease, you may get physical therapy or start a home exercise program. This can strengthen your shoulder muscles and help your range of motion. Talk with your doc tor about what is best for your condition. Follow-up care Follow up with your healthcare provider, or as advised. When to seek medical advice Call your healthcare provider right away if any of these occur: Shoulder pain that gets worse and wakes you up at night Your shoulder or arm swells Numbness, tingling, or pain that travels down the arm to the hand Loss of shoulder strength Fever or chills Date Last Reviewed: 12/31/201519992804-3160 [employer]. [address] [place] [address]. All righ ts reserved. This information is not intended as a substitute for professional medical care. Always follow your healthcare professional's instructions. documented in this encounter Progress Notes Rodney Worthy MD - 03/01/2019 2:30 PM PDTFormatting of this note might be dif ferent from the original. [facility] RETURN CLINIC VISIT Pt. Name/Age/: Thea Carmona 73 y.o. 1945 Primary Care Physician: Caitlin Chino Chief Complain t/Reason for Visit: Follow-up, Office Visit and Shoulder Pain (Bilateral) History of Present Illness: The patient is a pleasant 73 y.o. female who presents for a repeat visit for lateral should er pain. Her pain is a 6 out of 10 at baseline and 8 out of 10 at its worst. Her left shou lder is worse than her right shoulder. She reports that she was unable to do physical thera py. She only went for the first visit because it caused her such great pain. She previousl y had injections with only about 2 weeks of relief. She reports that any kind of lifting or overhead activity causes her significant pain. She continues to hold her cane in her right hand. She additionally has significant right wrist pain however she is not as worried abou t her right side as she is about her left side at this point. Past Medical History: Past Medical History: Diagnosis Date Acid reflux disease Arthritis COPD (chronic obstructive pulmonary disease) ([facility]) on albuterol Depression HONG (dyspnea on exertion) Full dentures upper & lower GERD (gastroesophageal reflux disease) Hyperlipidemia on simvastatin Hypertension on clonidine and lisinopril Hypothyroidism Obesity MARCE (obstructive sleep apnea) no CPAP Osteoporosis Pneumonia 2008 hospitalized 5 days Recurrent squamous cell carcinoma of lung ([facility]) 07/11/[address] and RUL nodule Rheumatoid arthritis(714.0) on prednisone and methotrexate, Dr. Lewis [place] Spinal stenosis has tried cortisone injections Spondylolisthesis of cervical region Sputum culture positive for Scopulariopsis species Squamous cell carcinoma of lung ([facility]) 07/2013 right lower lobe Stroke ([facility]) 2006 Stroke ([facility]) 2007 left sided weakness Upper GI bleed 06/2014 admitted Jeanerette's Wears dentures Past Surgical History: Procedure Laterality Date BACK SURGERY 03/2014 BLADDER SUSPENSION BRONCHOSCOPY 07/11/2014 EBUS with right hilar LN biopsy, [facility] Dr. [place] CERVICAL SPINE SURGERY 2012 CHOLECYSTECTOMY COLONOSCOPY 06/2014 ENDOSCOPY FINGER TRIGGER RELEASE Left 12/14/2018 Procedure: Left Thumb Trigger Finger Release, Left Index Trigger Finger Release, Left Long Trigger Finger Release, Left Ring Trigger Finger Release; Surgeon: Giuliano Padilla MD; Lo cation: [facility] OR HAND ARTHROPLASTY Left 03/20/2015 Procedure: Left 1st C.M.C. Arthroplasty; Surgeon: Giuliano Padilla MD; Location: [facility] OR HAND ARTHROPLASTY Right 10/27/2017 Procedure: Right 1st CMC Arthroplasty; Surgeon: Giuliano Padilla MD; Location: [facility] R HYSTERECTOMY LOBECTOMY 09/16/13 right lower lobe LUNG BIOPSY 07/21/13 right lower lobe SHOULDER SURGERY SHOULDER SURGERY right shoulder THUMB SURGERY TONGUE SURGERY benign per pt TUNNELED VENOUS PORT PLACEMENT N/A 07/28/2014 Procedure: Port Placement; Surgeon: Chalino Chiu MD; Location: [facility] OR Allergies: No Known Allergies Current [...] 250 mg by mouth 3 times daily. BREO ELLIPTA 100-25 MCG/INH inhaler Inhale 1 puff into the lungs Daily. 0 Carboxymethylcellulose Sodium (REFRESH TEARS OP) Apply to eye. cholecalciferol (VITAMIN D-3) 1,000 units capsule Take 2,000 Units by mouth Daily. clopidogrel (PLAVIX) 75 mg tablet Take 75 mg by mouth Daily. dilTIAZem (CARDIZEM CD) 180 mg 24 hr capsule Take 1 capsule by mouth Daily. 30 capsule 0 doxycycline (MONODOX) 100 mg capsule take 1 capsule by mouth twice a day 0 doxycycline (VIBRAMYCIN) 100 mg tablet Take 100 mg by mouth 2 (two) times daily. DULoxetine (CYMBALTA) [address] capsule Take 30 mg by mouth daily. DULoxetine (CYMBALTA) [address] capsule Take 1 capsule by mouth Daily. 0 DULoxetine (CYMBALTA) [address] capsule Take 60 mg by mouth daily. erythromycin ophthalmic ointment erythromycin 5 mg/gram (0.5 %) eye ointment folic acid 1 mg tablet Take 1 [...] tablet Take 1 tablet by mouth daily. mirtazapine (REMERON) 15 MG tablet Take 15 mg by mouth Daily. NARCAN 4 MG/0.1ML instill 1 spray in [...] (four) hours as need ed for Congestion. raNITIdine (ZANTAC) 300 MG tablet Take 300 mg by mouth Daily. Respiratory Therapy Supplies (NEBULIZER COMPRESSOR) KIT Use as directed with nebulizer medication. Dx: J43.1 CASIE: 99 months 1 each 0 roflumilast (DALIRESP) 500 mcg tablet Take 500 mcg by mouth daily. simvastatin (ZOCOR) 40 mg tablet Take 40 mg by mouth nightly. SUDOGEST 60 MG tablet take 1 tablet by mouth three times a day if needed for sinus dragan estion 0 oxyuxdx-otmpjuxiii-qdgrhvtch pertussis (BOOSTRIX) 5-2.5-18.5 LF-MCG/0.5 injection Boost oracio Tdap 2.5 Lf unit-8 mcg-5 Lf/0.5 mL intramuscular syringe tiotropium (SPIRIVA) 18 mcg inhalation capsule Inhale 18 mcg into the lungs Daily. TURMERIC PO Take by mouth. venlafaxine (EFFEXOR XR) 75 mg 24 hr capsule Take 75 mg by mouth Daily. warfarin (COUMADIN) 5 mg tablet Take 5 mg by mouth Daily. 5MG 3 times weekly and 4 1/2 tablet other days. No current facility-administered medications for this visit. 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 Tobacco Use Smoking status: Former Smoker Packs/day: 1.00 Years: 50.00 Pack years: 50.00 Types: Cigarettes Start date: 03/08/1952 Last attempt to quit: 07/24/2016 Years since quittin.6 Smokeless tobacco: Never Used Substance and Sexual Activity Alcohol use: Not Currently Alcohol/week: 0.0 oz Comment: pt states she was an alcoholic for 40 years but quit in 05/2012 Drug use: Not Currently Comment: marijuana in the remote past Sexual activity: Not on file Other Topics Concern Not on file Social History Narrative Lives: in [place] With: alone Grew up: in [place] Has previously lived in: [place] Exposure to toxic chemicals: no Exposure to asbestos: no Exposure to tuberculosis: no Has had a PPD or Quantiferon before: no Has pets at home: cat and a dog Has ever owned birds: yes, 5 years ago Other animal exposures: no Hobbies: used to jaja, crossword puzzles, walking her dog Review of Systems All of these are negative unless otherwise marked Musculoskeletal: [] Physical handicaps [x] Back or shoulder pain []Rheumatoid disease [] Osteoarthritis [x] Joint pain [] Joint swelling []Gout [] Leg cramps at night Endocrine: [x] Thyroid [] Diabetes Admission Weight: Weight: 66.5 kg (146 lb 9.7 oz) BMI: Body mass index is 26.81 kg/m . Physical Examination: Ht 1.575 m (5' 2") | Wt 66.5 kg (146 lb 9.7 oz) | BMI 26.81 kg/m General: Alert, oriented, no acute distress HEENT: Normocephalic, atraumatic Cardiovascular: Regular rate and rhythm Respiratory: Breathing normally at a regular rate Ortho Exam Left Shoulder Exam Right Left Forward Flexion 90 80 Abduction 90 90 External Rotation 25 25 External Rotation Strength 4/5 on left Internal Rotation Strength 5/5 Hawkin's Positive Neer's Positive Gary's Positive Radial pulse 2+. Sensation intact to light touch in the first dorsal webspace, and the pads of the small and index fingers. Able to flex and extend the thumb at the interphalangeal bryan int, make an "ok" sign, adduct and abduct the fingers, and oppose the thumb to the small fin casandra. Diagnostic Studies: Imaging Previous x-rays reviewed. No significant glenohumeral joint osteoarthrosis. The humeral h ead is centered on the glenoid. Labs- Lab Results Component Value Date NA 139 02/22/2019 K 3.2 (L) 02/22/2019 CL 102 02/22/2019 CO2 30 02/22/2019 ANIONGAP 10 02/22/2019 GLU 110 (H) 02/22/2019 BUN 15 02/22/2019 CREA 1.2 (H) 02/22/2019 GFRNONAA 50 (L) 12/09/2018 CALCIUM 9.3 02/22/2019 ALBUMIN 3.4 02/22/2019 BILITOT 0.4 10/28/2018 TOTALPROTEIN 6.3 09/28/2018 AST 21 02/22/2019 ALT 25 02/22/2019 ALKPHOS 65 02/22/2019 WBC 10.62 02/22/2019 HGB 12.7 02/22/2019 HCT 38.3 02/22/2019 MCV 96.2 02/22/2019 LABPLAT 339 10/28/2018 PLT 366 02/22/2019 ESR 65 (H) 02/22/2019 CRP 2.7 (H) 02/22/2019 INR 1.0 09/28/2018 Assessment and Plan: 1. Impingement syndrome of left shoulder MRI Shoulder Left wo Contrast 2. Muscle left arm weakness MRI Shoulder Left wo Contrast The patient is a pleasant 73 y.o. female who presents for a repeat visit with left shoulder weakness and impingement. Treatment options were discussed with the patient including non-o perative treatment modalities. Considering the nature of the patient's condition, decision w as made to proceed with an MRI of the left shoulder. The left shoulder bothers her more dave n the right. Initially, I plan on doing an MR arthrogram. The appropriate use criteria sug gested using a normal MR. We will plan on doing that instead. We will see her back after t he MRI. Purpose of the MRIs to look for rotator cuff tear.. Follow-up: Return After MRI. with no x-ray Portions of this report were transcribed using voice recognition software. Every effort wa s made to ensure accuracy; however, inadvertent computerized associate product integrity engineer errors may be pre sent. I appreciate [...] | | | | | [place] [address] | | | | | | [phone] | | | | | | | | +--------+ + + + + | 06/08/ | Office | Physical Medicine | Rocky Santos | | | 2019 | Visit | and Rehabilitation | [address] | | | | | | [place] | | | | | | [address] | | | | | | | | +--------+ + + + + | 06/16/ | Appointment | Pulmonology | Eveline Jaffe | | 2019 | | | MD Nichole Carter [address] | | | | | | [address] [place] | | | | | | [place] [address] | | | | | | [phone] | | | | | | | | +--------+ + + + + | 06/16/ | Office | Pulmonology | Eveline Jaffe | | | 2019 | Visit | | MD Nichole Carter [address] | | | | | | [address] [place] | | | | | | [place], [place] [address] | | | | | | [phone] | | | | | | | | +--------+ + + + + | 08/24/ | Office | Cardiology | Anisha Lopez DO | | | 2019 | Visit | | [address] | | | | | | [place] | | | | | | [address] | | | | | | | | +--------+ + + + + + +---------+--------+ + + | Name | Type | Priori | Associated Diagnoses | Order Schedule | | | | ty | | | + +---------+--------+ + + | MRI Shoulder Left wo | Imaging | Routin | Impingement | Expected: | | Contrast | | e | syndrome of left | 03/01/2019, Expires: | | | | | shoulder Muscle | 03/01/2020 | | | | | left arm weakness | | + +---------+--------+ + + documented as of this encounter Visit Diagnoses + + | Diagnosis | + + | Impingement syndrome of left shoulder - Primary Other affections of shoulder region, | | not elsewhere classified | + + | Muscle left arm weakness Muscle weakness (generalized) | + + documented in this encounter
--- OUTSIDE RECORDS SUMMARY | ~2019-05-05 | XMS | Encounter Summary ---
Demographics + + + | Address | [address] | | | [place] [address] | + + + | Home Phone [...] [place] | | | | | [address] | | + + + + + Care Team Providers + +------+ + | Care Assistant Technician Name | Role | Phone | + +------+ + | Davis Ivan MD | PCP | | + +------+ + Reason for Visit + + + | Reason | Comments | + + + | Establish Care | | + + + Encounter Details +--------+---------+ + + + | Date | Type | Department | Care Team | Description | +--------+---------+ + + + | 03/30/ | Office | [facility] | [place], | Pulmonary nodule | | 2012 | Visit | PULMONARY [address] | Ayana Looney MD | (Primary Dx); COPD | | | | [place], | | (chronic obstructive | | | | [place] [address] | | pulmonary disease) | | | | [phone] | | (HCC); Rheumatoid | | | | | | arthritis ([facility]) | +--------+---------+ + + + Social History [...] + + + | Blood Pressure | 104/62 | 03/30/2013 11:53 AM | | | | | PDT | | + + + + + | Pulse | 71 | 03/30/2013 11:53 AM | | | | | PDT | | + + + + + | Temperature | 36.4 C (97.6 F) | 03/30/2013 11:53 AM | | | | | PDT | | + + + + + | Respiratory Rate | - | - | | + + + + + | Oxygen Saturation | 96% | 03/30/2013 11:53 AM | | | | | PDT | | + + + + + | Inhaled Oxygen | - | - | | | Concentration | | | | + + + + + | Weight | 74.4 kg (164 lb) | 03/30/2013 11:53 AM | | | | | PDT | | + + + + + | Height | 157.5 cm (5' 2") | 03/30/2013 11:53 AM | | | | | PDT | | + + + + + | Body Mass Index | 30 | 03/30/2013 11:53 AM | | | | | PDT | | + + + + + documented in this encounter Patient Instructions Patient Instructions Ayana Taylor MD - 03/30/2013 12:52 PM PDTDrop sputum off at the lab today. If you can, get blood drawn today. I will see you back in 2 weeks to go over these results and discuss a biopsy. Electronicall y signed by Ayana Taylor MD at 03/30/2013 12:55 PM PDT documented in this encounter Progress Notes Ayana Taylor MD - 03/30/2013 12:12 PM PDTFormatting of this note might be differe nt from the original. Pulmonary Consult Note MD [facility] [address] [place], [address] Referring Provider: Davis Ivan * HPI Thea Carmona is a 67 y.o. female patient of Davis Ivan here today for evaluat ion of a pulmonary nodule. She notes that she was having a pre operative evaluation for a cervical spine surgery, and had a chest x-ray done, and a spot was found on that. She had not complained of any symptoms . This led to a chest CT scan, which confirmed presence of a cavitary pulmonary nodule. The nodule is described as cavitary, right lower lobe and measuring 1.9cm. They have had previou s chest imaging. She notes she has had several chest x-rays done off and on over the years. She believes she had one yearly at [facility], even fairly recently. They do have symptoms of shortness of breath. Currently they are able to walk 20-50 at thei r own pace on level ground. The distance walked is predominately limited by her back problem s, and to a certain extent her breathing. She does not do any regular exercise. She is not i n physical therapy, it is not covered by her insurance. They do not have a chronic cough. She does cough at times. They do produce sputum. Their sp utum is clear in color usually, though occasionally green. They have not had hemoptysis in the past. They are not able to do their own bathing and dressing at home. They are not able to do the ir own cooking and cleaning. She has a lining cementer at home. She does do a little cooking some times. They spend 100 percent of the day up and about, with the remainder sleeping or nappin g. She tries to walk for several hours each day, walking the stairs, letting the dog out. They have not had to be hospitalized for breathing issues in the past, and have not require d intubation in the past. Past Medical History Past Medical History Diagnosis Date COPD (chronic obstructive pulmonary disease) on albuterol Spondylolisthesis of cervical region Spinal stenosis Osteoporosis Depression Pneumonia 2009 hospitalized 5 days Rheumatoid arthritis on prednisone and methotrexate, Dr. JoshuaTiffanie levy Stroke 2007 Hyperlipidemia on simvastatin Hypertension on clonidine and lisinopril Hypothyroidism GERD (gastroesophageal reflux disease) Past Surgical History Past Surgical History Procedure Date Hysterectomy Cholecystectomy Cervical spine surgery 2013 Bladder suspension Shoulder surgery Thumb surgery Family History: Family History Problem Relation Age of Onset COPD Sister Tobacco Use Sister quit 1 year ago Cancer Father stomach Lung cancer Brother Tobacco Use Brother Alcohol abuse Brother Social History: History Social History Marital Status: Spouse Name: N/A Number of Children: N/A Years of Education: N/A 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 Social History Main Topics Smoking status: Former Smoker -- 1.0 packs/day for 50 years Types: Cigarettes Quit date: 08/21/2012 Smokeless tobacco: None Alcohol Use: No Drug Use: No marijuana in the remote past Sexually Active: None Other Topics Concern None Social History Narrative [place] With: aloneG[place] previously lived in: [place]posure t o toxic chemicals: noExposure to asbestos: noExposure to tuberculosis: no Has had a PPD or Q uantiferon before: noHas pets at home: cat and a dog Has ever owned birds: yes, 5 years ago Other animal exposures: noHobbies: used to jaja, crossword puzzles, walking her dog Allergies: No Known Allergies Medications: Outpatient Encounter Prescriptions as of 03/30/2013 Medication Status Sig Dispense Refill albuterol 2.5 mg/3 mL nebulizer solution Active Take 2.5 mg by nebulization every 6 rodrigo rs as needed. aspirin 81 MG tablet Active Take 81 mg by mouth Daily. cholecalciferol (VITAMIN D-3) 1,000 units capsule Active Take 1,000 Units by mouth Alvarado coelho cloNIDine (CATAPRES) 0.1 mg tablet Active Take 0.1 mg by mouth 2 times daily. clopidogrel (PLAVIX) 75 mg tablet Active Take 75 mg by mouth Daily. diazepam (VALIUM) 2 mg tablet Active Take 2 mg by mouth Daily. ferrous sulfate (IRON) 28 MG TABS Active Take 28 mg by mouth Daily. folic acid 1 mg tablet Active Take 1 mg by mouth 2 times daily. levothyroxine (SYNTHROID) 100 mcg tablet Active Take 75 mcg by mouth every morning (bef ore breakfast). lisinopril (PRINIVIL, ZESTRIL) 10 mg tablet Active Take 10 mg by mouth 3 times daily. Magnesium 100 MG CAPS Active Take by mouth Daily. methotrexate 2.5 mg tablet Active Take 7.5 mg by mouth Once a week. morphine (MSIR) 30 MG tablet Active Take 15-30 mg by mouth every 4 hours as needed. omeprazole (PRILOSEC) 20 mg capsule Active Take 20 mg by mouth every morning (before br eakfast). predniSONE (DELTASONE) 5 mg tablet Active Take 5 mg by mouth 3 times daily. simvastatin (ZOCOR) 40 mg tablet Active Take 40 mg by mouth nightly. venlafaxine (EFFEXOR) 75 MG tablet Active Take 375 mg by mouth 2 times daily. Review of Systems Constitutional: Denies fever, chills, sweats. Has gained weight. Sleep: Denies difficulty sleeping, excessive snoring, and daytime sleepiness. Eyes: Denies vision change and eye irritation. ENT: Denies earache, decreased hearing, nasal congestion, nosebleeds, sore throat, and ho arseness. Resp: See HPI. CV: Denies chest pain, palpitations, syncope. She gets some ankle edema. GI: Denies nausea, vomiting, and abdominal pain. Has heartburn, on omeprazole, with good control. : Denies difficulty emptying bladder and nocturia. Musculoskeletal: Has chronic back pain, has RA, well controlled. Derm: Denies rash, itching, dryness, and suspicious lesions. Neurologic: Denies frequent headaches, seizures, numbness or tingling in hands or feet, and vertigo. Psych: Denies anxiety, and suicidal ideation. Has some depression. Endo: Denies cold intolerance, heat intolerance, and unusual weight change. Heme: Denies bleeding, and enlarged lymph nodes. Has easy bruising. Allergy: Denies food allergies, allergic rash, and hay fever. Objective BP 104/62 | Pulse 71 | Temp 36.4 C (97.6 F) (Tympanic) | Ht 1.575 m (5' 2") | Wt 74.39 kg (164 lb) | BMI 30.00 kg/m2 | SpO2 96% General Appearance: Alert, cooperative, no distress, appears stated age Head: Normocephalic, without obvious abnormality, atraumatic Eyes: PERRL, conjunctiva clear, no scleral icterus, EOM's intact Ears: Normal TM's, external auditory canals, slightly diminished acuity Nose: Nares normal, septum midline, mucosa normal Mouth: No oral lesions or exudate Neck: Wearing C spine collar, not removed Lungs: No accessory muscle use, breath sounds are somewhat diminished bilaterally with so me prolongation of the expiratory phase, no wheezes, crackles or rhonchi Chest Wall: No deformity Heart: Regular rate and rhythm, no murmur, no rub or gallop Abdomen: Soft, non-tender, non-distended Extremities: No cyanosis, clubbing, or edema Pulses: Radial pulses 2+ and symmetric Skin: Warm and dry Lymph nodes: Cervical and supraclavicular nodes normal Data: PET scan was done on March 11, 2013 and was reviewed and interpreted in clinic today. It shows uptake of 3.7 SUV in the area of the nodule, best seen in the sagittal views, the nodu le has also decreased in size, and the cystic area has become more fluid filled. Chest CT scan was done on January 28, 2013 and was reviewed and interpreted in clinic today. It shows a cavitary nodule in the rihgt lower lobe, superior segment, measuring about 1.9 c m in diameter, with irregular borders and tendrils that extend toward the chest wall. Emphys edwin is also seen. Davis Ivan's notes were reviewed in clinic today. Immunization History Administered Date(s) Administered INFLUENZA, PRESERVATIVE FREE IM 03/22/2013 Pneumococcal (Adult) 03/01/2011 Assessment 1. Pulmonary nodule - Likely infectious/inflammatory with fungal being high on the list. I would try to diagnose serologically given risk of biopsy. If we cannot, then we will do a ne edle biopsy given risk from her RA medications. 2. COPD (chronic obstructive pulmonary disease) - On albuterol. 3. Rheumatoid arthritis - On methotrexate and prednisone. Plan 1. Check aspergillus antibodies, check cocidioides antibodies, and histoplasmosis antibodie s. 2. Check sputum fungal culture. 3. Check Quantiferon TB gold. RTC in 2 weeks to discuss results and if biopsy needed. CC: Davis Ivan MD documented in t his encounter Plan of Treatment +--------+ + + + + | Date | Type | Specialty | Care Team | Description | +--------+ + + + + | 05/30/ | Office | Rheumatology | Santosh Sumner, | | | 2018 | Visit | | [address] | | | | | | [facility] | | | | | | [place] [address] | | | | | | [phone] | | | | | | | | +--------+ + + + + | 06/08/ | Office | Physical Medicine | Rocky Santos, | | | 2019 | Visit | and Rehabilitation | [address] | | | | | | [place] | | | | | | [address] | | | | | | | | +--------+ + + + + | 06/16/ | Appointment | Pulmonology | Eveline Jaffe | | | 2019 | | | MD Nichole [address] | | | | | | [address] [place] | | | | | | [place] [address] | | | | | | [phone] | | | | | | | | +--------+ + + + + | 06/16/ | Office | Pulmonology | Eveline Jaffe | | | 2019 | Visit | | MD Raul [address] | | | | | | [address] [place] | | | | | | [place] [address] | | | | | | [phone] | | | | | | | | +--------+ + + + + | 08/24/ | Office | Cardiology | Anisha Lopez DO | | | 2019 | Visit | | [address] | | | | | | [place] | | | | | | [address] | | | | | | | | +--------+ + + + + documented as of this encounter Results Culture, Fungus (03/30/2013 1:45 PM PDT) + + + + + + | Component | Value | Ref Range | Performed | Pathologist | | | | | At | Signature | + + + + + + | CULTURE | SENT FUNGUS (4+ GROWTH) | | [facility] | | | FUNGAL | TO REFER[facility] LAB TO | | [facility] | | | WOUND | ID.Sent out for | | MEDICAL | | | | confirmation and | | CENTER - | | | | ID.Final results | | LABORATORY | | | | pending. | | | | + + + + + + | Organism | NEENA ALBICANS | | [facility] | | | Type | | | [facility] | | | | | | MEDICAL | | | | | | CENTER - | | | | | | LABORATORY | | + + + + + + | CULTURE | QUANTITY | | [facility] | | | FUNGAL | RARE | | [facility] | | | WOUND | | | MEDICAL | | | | | | CENTER - | | | | | | LABORATORY | | + + + + + + | Organism | SCOPULARIOPSIS SPECIES | | [facility] | | | Type | | | [facility] | | | | | | MEDICAL | | | | | | CENTER - | | | | | | LABORATORY | | + + + + + + | CULTURE | QUANTITY | | [facility] | | | FUNGAL | MANY | | [facility] | | | WOUND | | | MEDICAL | | | | | | CENTER - | | | | | | LABORATORY | | + + + + + + + + | Specimen | + + | Respiratory sample | | (specimen) - Sputum, | | Expectorated | + + + + + | Narrative | Performed At | + + + | YELLOW MUCOID | [facility] | | | [facility] | | | [facility] | | | - LABORATORY | + + + + + + + + | Performing | Address | City/State/Zipcode | Phone Number | | Organization | | | | + + + + + | [facility] | [address] | [place] | [phone] | | [facility] | | [address] | | | - LABORATORY | | | | + + + + + | [facility] | [address] | [place] | | | [facility] | | [address] | | | - LABORATORY | | | | + + + + + Quantiferon Gold (03/30/2013 1:20 PM PDT) + + + + + + | Component | Value | Ref Range | Performed | Pathologist | | | | | At | Signature | + + + + + + | QUANTIFERON | NEGATIVE | | [facility] | | | GOLD TB | | | [facility] | | | | | | MEDICAL | | | | | | CENTER - | | | | | | LABORATORY | | + + + + + + | Tuberculosi | 0.00Comment: This is a | <0.35 IU/mL | [facility] | | | s Antigen | qualitative test. The | | [facility] | | | Value | IU/mL value should not | | MEDICAL | | | (Ag-Nil) | beused to monitor | | CENTER - | | | | disease progression or | | LABORATORY | | | | response to | | | | | | therapy.Diagnosing or | | | | | | excluding tuberculosis | | | | | | disease and assessingthe | | | | | | probability of LTBI | | | | | | require a combination | | | | | | ofepicemiological, | | | | | | historical, medical and | | | | | | diagnostic findingsthat | | | | | | should be taken into | | | | | | account when | | | | | | interpretingQuantiFERON- | | | | | | TB results. Testing | | | | | | performed by: | | | | | | [facility], | | | | | | [address] | | | | | | [place] | | | | | | [address] | | | | + + + + + + + + | Specimen | + + | Blood specimen | | (specimen) | + + + + + + + | Performing | Address | City/State[facility] | Phone Number | | Organization | | | | + + + + + | [facility] | [address] | [place] | [phone] | | [facility] | | [address] | | | - LABORATORY | | | | + + + + + | [facility] | [address] | [place] | | | [facility] | | [address] | | | - LABORATORY | | | | + + + + + Aspergillus Ab, Total (03/30/2013 1:20 PM PDT) + + + + + + | Component | Value | Ref Range | Performed | Pathologist | | | | | At | Signature | + + + + + + | Aspergillus | None DetectedComment: | () | [facility] | | | Ab, ID | Reference range: NONE | | [facility] | | | | DETECTEDINTERPRETIVE | | MEDICAL | | | | INFORMATION: Aspergillus | | CENTER - | | | | spp. Antibodies by | | LABORATORY | | | | | | | | | | | | | | | | ImmunodiffusionIn | | | | | | general, immunodiffusion | | | | | | measures IgG and a | | | | | | positiveresult may | | | | | | suggest past infection. | | | | | | The test is positive | | | | | | inabout 90 percent of | | | | | | sera from patients with | | | | | | aspergillomaand 50-70 | | | | | | percent of patients with | | | | | | | | | | | | allergicbronchopulmonary | | | | | | aspergillosis. A | | | | | | negative test | | | | | | (nonedetected) does not | | | | | | exclude | | | | | | aspergillosis.Testing | | | | | | Performed: [address] | | | | | | [facility] | | | | | | [facility], [id number] CLIA: | | | | | | [id number] | | | | + + + + + + + + | Specimen | + + | Blood specimen | | (specimen) | + + + + + + + | Performing | Address | City/State/[facility] | Phone Number | | Organization | | | | + + + + + | [facility] | [address] | [place] | [phone] | | [facility] | | [address] | | | - LABORATORY | | | | + + + + + | [facility] | [address] | [place] | | | [facility] | | [address] | | | - LABORATORY | | | | + + + + + Histoplasma Ab Panel (03/30/2013 1:20 PM PDT) + + + + + + | Component | Value | Ref Range | Performed | Pathologist | | | | | At | Signature | + + + + + + | Histoplasma | None DetectedComment: | () | [facility] | | | Ab | Reference range: NONE | | [facility] | | | | DETECTEDINTERPRETIVE | | MEDICAL | | | | INFORMATION: Histoplasma | | CENTER - | | | | spp. Antibodies by | | LABORATORY | | | | | | | | | | | | | | | | ImmunodiffusionThe | | | | | | immunodiffusion test can | | | | | | detect precipitins to | | | | | | specificHistoplasma | | | | | | protein antigens (M and | | | | | | H). The M band | | | | | | oftenappears first and | | | | | | may occur without the H | | | | | | band. Mprecipitin is | | | | | | found in about 70 | | | | | | percent of both acute | | | | | | andchronic | | | | | | histoplasmosis cases. | | | | | | Both M and H occur | | | | | | togetherin only about 10 | | | | | | percent of | | | | | | patients.Testing | | | | | | Performed: [address] [address] | | | | | | [facility] | | | | | | [facility], [id number] CLIA: | | | | | | [id number] | | | | + + + + + + + + | Specimen | + + | Blood specimen | | (specimen) | + + + + + + + | Performing | Address | City/State/Zipcode | Phone Number | | Organization | | | | + + + + + | [facility] | [address] | [place], [place] | [phone] | | [facility] | | [address] | | | - LABORATORY | | | | + + + + + | [facility] | [address] | [place], [place] | | | [facility] | | [address] | | | - LABORATORY | | | | + + + + + COCCIDIOIDES ANTIBODY (03/30/2013 1:20 PM PDT) + + + + + + | Component | Value | Ref Range | Performed | Pathologist | | | | | At | Signature | + + + + + + | Coccidioide | <1:2Comment: Reference | () | [facility] | | | s Ab by CF | range: <1:2[facility] | | [facility] | | | | RANGE: | | MEDICAL | | | | <1:2INTERPRETIVE | | CENTER - | | | | CRITERIA: | | LABORATORY | | | | <1:2 | | | | | | Antibody Not Detected | | | | | | > or = | | | | | | 1:2 Antibody | | | | | | DetectedAll serum titers | | | | | | > or = 1:2 should be | | | | | | consideredevidence | | | | | | indicative of | | | | | | coccidioidomycosis,altho | | | | | | ugh titers of 1:2 and | | | | | | 1:4 should be | | | | | | confirmedby | | | | | | immunodiffusion testing. | | | | | | Titers exceeding | | | | | | 1:16usually reflect | | | | | | disseminated disease. In | | | | | | general,higher titers | | | | | | are correlated with | | | | | | diseaseseverity, and | | | | | | changes in serial titers | | | | | | are ofprognostic value. | | | | | | A negative CF test does | | | | | | not,however, rule out | | | | | | the diagnosis. Only 70% | | | | | | ofpatients with cavitary | | | | | | disease are positive, | | | | | | andonly 30% of patients | | | | | | with nodular disease | | | | | | arepositive.This test | | | | | | was developed and its | | | | | | performancecharacteristi | | | | | | cs have been determined | | | | | | by [facility]. | | | | | | Performance | | | | | | characteristics refer | | | | | | tothe analytical | | | | | | performance of the test. | | | | + + + + + + | Coccidioide | NegativeComment: | () | [facility] | | | s Ab by ID | REFERENCE RANGE: | | [facility] | | | | NEGATIVEINTERPRETIVE | | MEDICAL | | | | CRITERIA: | | CENTER - | | | | NEGATIVE: | | LABORATORY | | | | Antibody Not Detected | | | | | | | | | | | | POSITIVE: Antibody | | | | | | DetectedThe | | | | | | immunodiffusion (ID) | | | | | | procedure correlates | | | | | | bothin sensitivity and | | | | | | clinical utility with | | | | | | the CFtest. The ID test, | | | | | | which detects IgG | | | | | | directed tothe "F" | | | | | | antigen, becomes | | | | | | positive within 4 | | | | | | weeksafter infection and | | | | | | remains positive | | | | | | throughoutclinically | | | | | | active disease. It is | | | | | | most useful inconfirming | | | | | | the specificity of low | | | | | | CF titers, whereline(s) | | | | | | of identity are formed | | | | | | with referenceantisera. | | | | | | Positive ID reactions | | | | | | are diagnostic | | | | | | forcoccidioidomycosis | | | | | | and usually indicate | | | | | | active orrecent disease | | | | | | and remain detectable | | | | | | for up to 1year | | | | | | thereafter.Testing | | | | | | Performed: [facility] | | | | [facility], [id number] | | | | | | [address] | | | | | | [place] [address] | | | | | | CLIA: [id number] | | | | + + + [...] [address] | [place] | [phone] | | [facility] | | [address] | | | - LABORATORY | | | | + + + + + | [facility] | [address] | [place] | | | [facility] | | [address] | | | - LABORATORY | | | | + + + + + documented in this encounter Visit Diagnoses + + | Diagnosis | + + | Pulmonary nodule - Primary Solitary pulmonary nodule | + + | COPD (chronic obstructive pulmonary disease) (HCC) Chronic airway obstruction, not | | elsewhere classified | + + | Rheumatoid arthritis(714.0) Rheumatoid arthritis | + + documented in this encounter
--- OUTSIDE RECORDS SUMMARY | ~2019-05-05 | XMS | Encounter Summary ---
Demographics + + + | Address | [address] | | | [place] [address] | + + + | Home Phone | | + + + | Preferred Language | Unknown | + + + | Marital Status | | + + + | Faith Affiliation | Unknown | + + + | Race | Unknown | + + + | Ethnic Group | Unknown | + + + Author + + + | Author | [facility] | | | and [place] | + + + | Organization | [facility] [...] [place] | | | | | [address] | | + + + + + Care Team Providers + +------+ + | Care Dispatcher Bus And Trolley Name | Role | Phone | + [...] + + + + | 08/24/ | [facility] | [facility] | Claudia, | Shortness of breath | | 2014 | Encounter | MED CTR PULMONARY | Ayana Looney MD | on exertion | | | | FUNCTION [address] | | | | | | [place], | | | | | | [place] [address] | | | | | | [phone] | | | +--------+ + + + [...] | 05/30/ | Office | Rheumatology | Salvos, Santosh, | | | 2018 | Visit | | [address] | | | | | | [address] | | | | | | [place] [address] | | | | | | [phone] | | | | | | | | +--------+ + + + + | 06/08/ | Office | Physical Medicine | Rocky Santos, | | | 2019 | Visit | and Rehabilitation | MD [address] | | | | | | [place] | | | | | | [address] | | | | | | | | +--------+ + + + + | 06/16/ | Appointment | Pulmonology | Eveline Jaffe | | | 2019 | | | MD [address] | | | | | | [address] | | | | | | [place] [address] | | | | | | [phone] | | | | | | | | +--------+ + + + + | 06/16/ | Office | Pulmonology | SoilacurtisEveline | | | 2019 | Visit | | MD [address] | | | | | | [address] | | | | | | [place] [address] | | | | | | [phone] | | | | | | | | +--------+ + + + + | 08/24/ | Office | Cardiology | Anisha Lopez DO | | 2019 | Visit | | [address] | | | | | | [place] | | | | | | [address] | | | | | | | | +--------+ + + + + documented as of this encounter Procedures + +--------+ + + + | Procedure Name | Priori | Date/Time | Associated Diagnosis | Comments | | | ty | | | | + +--------+ + + + | PFT PULMONARY | ZEYNEP | 08/24/2014 | Shortness of | | | FUNCTION TESTING | | 9:40 AM | breath on exertion | | | ORDERS | | PDT | | | + +--------+ + + + | DIAGNOSTIC REPORT - | | 08/24/2014 | | | | EXTERNAL SCAN | | 12:00 AM | | | | | | PDT | | | + +--------+ + + + | DIAGNOSTIC REPORT - | | 08/24/2014 | | | | EXTERNAL SCAN | | 12:00 AM | | | | | | PDT | | | + +--------+ + + + documented in this encounter Visit Diagnoses + + | Diagnosis | + + | Shortness of breath on exertion Shortness of breath | + + documented in this encounter"
--- OUTSIDE RECORDS SUMMARY | ~2019-05-05 | XMS | Encounter Summary ---
Demographics + + + | Address | [address] | | | [place] [address] | + + + | Home Phone | | + + + | Preferred Language | Unknown | + + + | Marital Status | | + + + | Christian Affiliation | Unknown | + + + | Race | Unknown | + + + | Ethnic Group | Unknown | + + + Author + + + | Author | [facility] | | | and [place] | + + + | Organization | [facility] | | | [...] [place] | | | | | [address] | | + + + + + Care Team Providers + +------+ + | Care Process Engineering Intern Name | Role | Phone | + +------+ + | Davis Ivan MD | PCP | | + +------+ + Encounter Details +--------+ + + + + | Date | Type | Department | Care Team | Description | +--------+ + + + + | 08/31/ | Orders Only | [facility] | Jimmy Banegas DO | | | 2014 | | MED CTR RADIATION | [address] | | | | | ONCOLOGY [address] | [place] | | | | | [place], | [address] | | | | | [place] [address] | | | | | | [phone] | | | +--------+ + + + [...] | | | | | [place] [address] | | | | | | [phone] | | | | | | | | +--------+ + + + + | 06/08/ | Office | Physical Medicine | Rocky Santos, | | | 2019 | Visit | and Rehabilitation | MD [address] | | | | | | [place] | | | | | | [address] | | | | | | | | +--------+ + + + + | 06/16/ | Appointment | Pulmonology | Eveline Jaffe | | 2019 | | | MD [address] | | | | | | [address] [place] | | | | | | [place] [address] | | | | | | [phone] | | | | | | | | +--------+ + + + + | 06/16/ | Office | Pulmonology | Eveline Jaffe | | | 2019 | Visit | | MD Raul [address] | | | | | | [address] [place] | | | | | | [place] [address] | | | | | | [phone] | | | | | | | | +--------+ + + + + | 08/24/ | Office | Cardiology | Anisha Lopez DO | | | 2019 | Visit | | [address] | | | | | | [place] | | | | | | [address] | | | | | | | | +--------+ + + + + documented as of this encounter Visit Diagnoses Not on filedocumented in this encounter"
--- OUTSIDE RECORDS SUMMARY | ~2019-05-05 | XMS | Encounter Summary ---
Demographics + + + | Address | [address] | | | [place] [address] | + + + | Home Phone [...] + + | Author | [facility] | | | and [place] | + + + | Organization | [facility] | | [...] [place] | | | | | [address] | | + + + + + Care Team Providers + +------+ + | Care Will Call Clerk Name | Role | Phone | + +------+ + | Davis Ivan MD | PCP | | + +------+ + Reason for Visit + + + | Reason | Comments | + + + | Pre-op Exam | left index, long, and thumb trigger finger release dos 12/14/18 | + + + Encounter Details +--------+---------+ + + + | Date | Type | Department | Care Team | Description | +--------+---------+ + + + | 12/09/ | Office | [facility] [place] | Giuliano Padilla, | Pre-op testing | | 2019 | Visit | ORTHOPEDIC SURGERY | MD Germania BARON | (Primary Dx); | | | | [address] [facility] | [place] | Trigger finger of | | | | [place] | [address] | left thumb; Trigger | | | | [address] | | middle finger of | | | | [phone] | | left hand; Trigger | | | | | | finger, left index | | | | | | finger; | | | | | | Hyperlipidemia, | | | | | | unspecified | | | | | | hyperlipidemia type; | | | | | | Hypertension, | | | | | | unspecified type; | | | | | | Anticoagulated on | | | | | | Coumadin; | | | | | | Hypothyroidism, | | | | | | unspecified type | +--------+---------+ + + + Social History [...] + + + | Blood Pressure | 143/80 | 12/09/2018 3:34 PM | | | | | PDT | | + + + + + | Pulse | 88 | 12/09/2018 3:34 PM | | | | | PDT | | + + + + + | Temperature | 36.2 C (97.1 F) | 12/09/2018 3:34 PM | | | | | PDT | | + + + + + | Respiratory Rate | 28 | 12/09/2018 3:34 PM | | | | | PDT | | + + + + + | Oxygen Saturation | 95% | 12/09/2018 3:34 PM | | | | | PDT | | + + + + + | Inhaled Oxygen | - | - | | | Concentration | | | | + + + + + | Weight | 67.1 kg (148 lb) | 12/09/2018 3:34 PM | | | | | PDT | | + + + + + | Height | 157.5 cm (5' 2") | 12/09/2018 3:34 PM | | | | | PDT | | + + + + + | Body Mass Index | 27.07 | 12/09/2018 3:34 PM | | | | | PDT [...] encounter Progress Notes Giuliano Padilla MD - 12/09/2018 3:30 PM PDTPatient returns for preop left thumb index angela g and ring trigger finger releases under IV sedation She is on Coumadin but I do not think this procedure warrants taking her off of it We discussed the pros and cons of that and I think she most likely will be fine without int errupting her anticoagulation schedule On exam she has reproducible triggering of the thumb and every digit except for the small f elida History and physical to follow All questions answered Tdocumented in this encounter Plan of Treatment +--------+ + + + + | Date | Type | Specialty | Care Team | Description | +--------+ + + + + | 05/30/ | Office | Rheumatology | Santosh Sumner, | | | 2018 | Visit | | [address] | | | | | | [facility] | | | | | | [place] [address] | | | | | | [phone] | | | | | | | | +--------+ + + + + | 06/08/ | Office | Physical Medicine | Rocky Santos, | | 2019 | Visit | and Rehabilitation | [address] | | | | | | [place] | | | | | | [address] | | | | | | | | +--------+ + + + + | 06/16/ | Appointment | Pulmonology | Eveline Jaffe | | | 2019 | | | MD [address] | | | | | | [address] [place] | | | | | | [place] [address] | | | | | | [phone] | | | | | | | | +--------+ + + + + | 06/16/ | Office | Pulmonology | Eveline Jaffe | | | 2019 | Visit | | MD [address] | | | | | | [address] [place] | | | | | | [place] [address] | | | | | | [phone] | | | | | | | | +--------+ + + + + | 08/24/ | Office | Cardiology | Anisha Lopez DO | | | 2019 | Visit | | [address] | | | | | | [place] | | | | | | [address] | | | | | | | | +--------+ + + + + documented as of this encounter Results Basic Metabolic Panel (12/09/2018 4:24 PM PDT) + + + + + + | Component | Value | Ref Range | Performed | Pathologist | | | | | At | Signature | + + + + + + | Na | 142 | 136 - 145 | [facility] | | | | | mmol/L | [facility] | | | | | [facility] | | | | | | [facility] - | | | | | | LABORATORY | | + + + + + + | K | 3.6 | 3.4 - 5.1 | [facility] | | | | | mmol/L | [facility] | | [facility] | [facility] | | | | | | [facility] - | | | | | | LABORATORY | | + + + + + + | Cl | 106 | 98 - 107 mmol/L | [facility] | | | | | | [facility] | | | | | | [facility] | | | | | | [facility] - | | | | | | LABORATORY | | + + + + + + | CO2 | 29 | 20 - 31 mmol/L | [facility] | | | | | | [facility] | | | | | | [facility] | | | | | | C[facility] - | | | | | | LABORATORY | | + + + + + + | Anion Gap | 7 | 3 - 16 mmol/L | [facility] | | | | | | [facility] | [facility] | | [facility] | [facility] | | | | | | C[facility] - | | | | | | LABORATORY | | + + + + + + | Glucose | 109 (H) | 60 - 106 mg/dL | [facility] | | | | | | [facility] | | | | | | [facility] | | | | | | C[facility] - | | | | | | LABORATORY | | + + + + + + | BUN | 20 | 9 - 23 mg/dL | [facility] | | | | | | [facility] | | | [facility] | [facility] | | | | | | C[facility] - | | | | | | LABORATORY | | + + + + + + | Creatinine | 1.08 (H) | 0.55 - 1.02 | [facility] | | | | | mg/dL | [facility] | | | | | | MED[facility] | | | | | | CENTER - | | | | | | LABORATORY | | + + + + + + | eGFR if not | 50 (L)Comment: | >=60 | [facility] | | | | GLOMERULAR FILTRATION | mL/min/1.73m2 | [facility] | | | DANISH | RATE,ESTIMATED | | MEDICAL | | | | mL/min/1.54u1Woqj than | | CENTER - | | [...] + + + + | Calcium | 9.7 | 8.7 - 10.4 | [facility] | | | | | mg/dL | [facility] | | | | | | MEDICAL | | | | | | CENTER - | | | | | | LABORATORY | | + + + + + + | BUN/Creatin | 18.5 | | [facility] | | | ine Ratio | | | [facility] | | [...] | + + + + + | [facility] | [address] | [place] | [phone] | | [facility] | | [address] | | | - LABORATORY | | | | + + + + + documented in this encounter Visit Diagnoses + + | Diagnosis | + + | Pre-op testing - Primary Preoperative examination, unspecified | + + | Trigger finger of left thumb | + + | Trigger middle finger of left hand Trigger finger (acquired) | + + | Trigger finger, left index finger | + + | Hyperlipidemia, unspecified hyperlipidemia type | + + | Hypertension, unspecified type | + + | Anticoagulated on Coumadin Encounter for therapeutic drug monitoring | + + | Hypothyroidism, unspecified type | + + documented in this encounter
--- OUTSIDE RECORDS SUMMARY | ~2019-05-05 | XMS | Encounter Summary ---
Demographics + + + | Address | [address] | | | [place] [address] | + + + | Home Phone [...] [place] | | | | | [address] | | + + + + + Care Team Providers + +------+ + | Care Electronics Specialist Name | Role | Phone | + +------+ + | Caitlin Chino MD | PCP | | + +------+ + Encounter Details +--------+ + + + + | Date | Type | Department | Care Team | Description | +--------+ + + + + | 12/20/ | Hospital | [facility] | Vivian, | No Show | | 2015 | Encounter | MED CTR CHEMO | Lokesh Gramajo MD [address] | | | | | INFUSION [address] [place] | | | | | [place], | [place] [address] | | | | | [place] [address] | [phone] | | | | | [phone] | | | +--------+ + + + [...] | | | | | [place] [address] | | | | | | [phone] | | | | | | | | +--------+ + + + + | 06/08/ | Office | Physical Medicine | Rocky Santos, | | | 2019 | Visit | and Rehabilitation | MD [address] | | | | | | [place] | | | | | | [address] | | | | | | | | +--------+ + + + + | 06/16/ | Appointment | Pulmonology | Eveline Jaffe | | 2019 | | | MD [address] | | | | | | [place] | | | | | | [place] [address] | | | | | | [phone] | | | | | | | | +--------+ + + + + | 06/16/ | Office | Pulmonology | Eveline Jaffe | | | 2019 | Visit | | MD Raul [address] | | | | | | [place] | | | | | | [place] [address] | | | | | | [phone] | | | | | | | | +--------+ + + + + | 08/24/ | Office | Cardiology | Anisha Lopez DO | | | 2019 | Visit | | [address] | | | | | | [place] | | | | | | [address] | | | | | | | | +--------+ + + + + documented as of this encounter Visit Diagnoses Not on filedocumented in this encounter"
--- OUTSIDE RECORDS SUMMARY | ~2019-05-05 | XMS | Encounter Summary ---
Demographics + + + | Address | [address] | | | [place] [address] | + + + | Home Phone | | + + + | Preferred Language | Unknown | + + + | Marital Status | | + + + | Synagogue Affiliation | Unknown | + + + | Race | Unknown | + + + | Ethnic Group | Unknown | + + + Author + + + | Author | [facility] | | | and [place] | + + + | Organization | [facility] | | | [...] [place] | | | | | [address] | | + + + + + Care Team Providers + +------+ + | Care Fender Finisher Name | Role | Phone | + [...] Description | +--------+--------+ + + + | 09/19/ | [facility] | [facility] | Adelita Lu MD | Medication Refill | | 2014 | | MED CTR MEDICAL | [address] [facility] | | | | | [facility] CL[facility] [address] | [place] | | | | | [address] | [address] | | | | | [place] [address] | [phone] | | | | | [phone] | | | +--------+--------+ + + + [...] | 2018 | Visit | | [address] | | | | | | [facility] | | | | | | [place] [address] | | | | | | [phone] | | | | | | | | +--------+ + + + + | 06/08/ | Office | Physical Medicine | Rocky Santos, | | | 2019 | Visit | and Rehabilitation | [address] | | | | | | [place] | | | | | | [address] | | | | | | | | +--------+ + + + + | 06/16/ | Appointment | Pulmonology | Eveline Jaffe | | 2019 | | | MD [address] | | | | | | [address] [place] | | | | | | [place] [address] | | | | | | [phone] | | | | | | | | +--------+ + + + + | 06/16/ | Office | Pulmonology | Eveline Jaffe | | 2019 | Visit | | MD [address]ole [address] | | | | | | [address] [place] | | | | | | [place] [address] | | | | | | [phone] | | | | | | | | +--------+ + + + + | 08/24/ | Office | Cardiology | Anisha Lopez DO | | 2019 | Visit | | [address] | | | | | | [place] | | | | | | [address] | | | | | | | | +--------+ + + + + documented as of this encounter Visit Diagnoses + + | Diagnosis | + + | Squamous cell lung cancer, unspecified laterality (HCC) - Primary | + + documented in this encounter"
--- OUTSIDE RECORDS SUMMARY | ~2019-05-05 | XMS | Encounter Summary ---
Demographics + + + | Address | [address] | | | [place] [address] | + + + | Home Phone [...] [place] | | | | | [address] | | + + + + + Care Team Providers + +------+ + | Care Naturopathic Doctor Name | Role | Phone | + +------+ + | Davis Ivan MD | PCP | | + +------+ + Encounter Details +--------+ + + + + | Date | Type | Department | Care Team | Description | +--------+ + + + + | 07/26/ | Orders Only | [facility] | Sujata Baca, | | | 2014 | | MED CTR CHEMO | RN | | | | | INFUSION [address] | | | | | | [place], | | | | | | [place] [address] | | | | | | [phone] | | | +--------+ + + + [...] | | | | | [place] [address] | | | | | | [phone] | | | | | | | | +--------+ + + + + | 06/08/ | Office | Physical Medicine | Rocky Santos, | | | 2019 | Visit | and Rehabilitation | MD [address] | | | | | | [place] | | | | | | [address] | | | | | | | | +--------+ + + + + | 06/16/ | Appointment | Pulmonology | Eveline Jaffe | | 2019 | | | MD [address] | | | | | | [address] | | | | | | [place] [address] | | | | | | [phone] | | | | | | | | +--------+ + + + + | 06/16/ | Office | Pulmonology | Eveline Jaffe | | | 2019 | Visit | | MD Raul [address] | | | | | | [address] [address] | | | | | | [place] [address] | | | | | | [phone] | | | | | | | | +--------+ + + + + | 08/24/ | Office | Cardiology | Anisha Lopez DO | | | 2019 | Visit | | [address] | | | | | | [place] | | | | | | [address] | | | | | | | | +--------+ + + + + documented as of this encounter Visit Diagnoses Not on filedocumented in this encounter"
--- OUTSIDE RECORDS SUMMARY | ~2019-05-05 | XMS | Encounter Summary ---
Demographics + + + | Address | [address] | | | [place] [address] | + + + | Home Phone | | + + + | Preferred Language | Unknown | + + + | Marital Status | | + + + | Taoist Affiliation | Unknown | + + + | Race | Unknown | + + + | Ethnic Group | Unknown | + + + Author + + + | Author | [facility] | | | and [place] | + + + | Organization | [facility] | | | [...] [place] | | | | | [address] | | + + + + + Care Team Providers + +------+ + | Care Compressor Service Technician Name | Role | Phone | + +------+ + | Davis Ivan MD | PCP | | + +------+ + Reason for Visit +---------+ + | Reason | Comments | +---------+ + | Post Op | | +---------+ + Encounter Details +--------+---------+ + + + | Date | Type | Department | Care Team | Description | +--------+---------+ + + + | 12/22/ | Office | [facility] | Giuliano Padilla, | Postop check | | 2019 | Visit | ORTHOPEDIC SURGERY | [address] [facility] | (Primary Dx) | | | | [address] [facility] | [place] [facility] [place] | | | | | [place] | [address] | | | | | [address] | | | | | | [phone] | | | +--------+---------+ + + + [...] encounter Progress Notes Giuliano Padilla MD - 12/22/2018 10:30 AM PDTPatient returns follow-up left thumb index angela g and ring trigger finger releases She is doing well without any further triggering Her wounds are clean and dry without infection and without hematoma We changed her bandages to Band-Aids today and I will see her next week for suture removalE lectronically signed by Giuliano Padilla MD at 12/22/2018 12:03 PM PDTdocumented in this enco unter Plan of Treatment +--------+ + + + + | Date | Type | Specialty | Care Team | Description | +--------+ + + + + | 05/30/ | Office | Rheumatology | Santosh Sumner, | | | 2018 | Visit | | [address] | | | | | | [facility] | | | | | | [place] [address] | | | | | | [phone] | | | | | | | | +--------+ + + + + | 06/08/ | Office | Physical Medicine | Rocky Santos, | | | 2019 | Visit | and Rehabilitation | MD [address] | | | | | | [place] | | | | | | [address] | | | | | | | | +--------+ + + + + | 06/16/ | Appointment | Pulmonology | Eveline Jaffe | | | 2019 | | | MD [address] | | | | | | [address] [place] | | | | | | [place] [address] | | | | | | [phone] | | | | | | | | +--------+ + + + + | 06/16/ | Office | Pulmonology | Eveline Jaffe | | | 2019 | Visit | | MD [address] | | | | | | [address] [place] | | | | | | [place] [address] | | | | | | [phone] | | | | | | | | +--------+ + + + + | 08/24/ | Office | Cardiology | Anisha Lopez DO | | | 2019 | Visit | | [address] | | | | | | [place] | | | | | | [address] | | | | | | | | +--------+ + + + + documented as of this encounter Visit Diagnoses + + | Diagnosis | + + | Postop check - Primary Follow-up examination, following unspecified surgery | + + documented in this encounter"
--- OUTSIDE RECORDS SUMMARY | ~2019-05-05 | XMS | Encounter Summary ---
Demographics + + + | Address | [address] | | | [place] [address] | + + + | Home Phone | | + + + | Preferred Language | Unknown | + + + | Marital Status | | + + + | Alevism Affiliation | Unknown | + + + | Race | Unknown | + + + | Ethnic Group | Unknown | + + + Author + + + | Author | [facility] | | | and [place] | + + + | Organization | [facility] | | | [...] [place] | | | | | [address] | | + + + + + Care Team Providers + +------+ + | Care Engraver Rubber Name | Role | Phone | + +------+ + | Davis Ivan MD | PCP | | + +------+ + Encounter Details +--------+ + + + + | Date | Type | Department | Care Team | Description | +--------+ + + + + | 07/31/ | Documentati | [facility] | Hiral Dsouza, | | | 2014 | on | [facility] | [facility] [address] | | | | | [address] [place] | [place], [place] | | | | | [place] [address] | [address] | | | | | [phone] | | | +--------+ + + + [...] + documented as of this encounter Progress Hiral Kemp [facility] - 07/31/2014 11:32 AM PSTFormatting of this note might be different fro m the original. IDT PATIENT MEDICATION/PROFILE REVIEW [facility] Pharmacy Recommendation __XX__ Observation only for increased paclitaxel toxicity; other interactions addressed damion erwin Pharmacy Assessment Therapy emetogenicity risk vs. supportive meds ordered: moderate/appropriate Drug interactions of concern: zofran + effexor/symbicort can increase risk of QT interval p rolongation; switched premed to aloxi. Taxol levels can be increased by both zocor and plav ix. Observe for possible increased toxicity of paclitaxel and/or consider dose adjustment if not tolerated. Allergy/Duplicate/Contraindications/Other: prednisone + dexamethasone; take home dexamethas one d/c'd. Lab-based dose adjustments suggested: none VTE Risk Factors Identified: VTE risk(s) in this patient include 1 point for high risk prim elia cancer site -lung. Per [place] Predictive Model for Chemotherapy-Associated VTE (NCCN Ca ncer-Associated Guidelines version 2.2014), [place] risk score= 1-2 (risk of symptomatic VTE 1.8-8.4%): Consider periodically re-assessing risk for VTE. Cardiac toxicity risks/recommended monitoring: none Objective Data Thea Carmona is a 69 y.o. female , Wt 72.6 kg , Ht 157.5 cm, BSA 1.78 m2, BMI 27.79 kg/m2 , Est CrCl = 71 ml/min Allergies : Review of patient's allergies indicates no known allergies. 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 Pertinent Medical History: has a past medical history of COPD (chronic obstructive pulmona ry disease) (HCC); Spondylolisthesis of cervical region; Spinal stenosis; Osteoporosis; Depr ession; Pneumonia (2008); Rheumatoid arthritis(714.0) (HCC); Hyperlipidemia; Hypertension; H ypothyroidism; GERD (gastroesophageal reflux disease); Stroke (HCC) (2006); Stroke (HCC) (18 01); Squamous cell carcinoma of lung ([facility]) (07/2013); Sputum culture positive for Scopulariop sis species; Recurrent squamous cell carcinoma of lung ([facility]) (07/11/2014); MARCE (obstructive s leep apnea); and Full dentures. Other pertinent objective data: none Current Medications: Current Outpatient Prescriptions on File Prior to Visit Medication Sig Dispense Refill albuterol 2.5 mg/3 [...] capsule Take 1,000 Units by mouth Daily. clopidogrel (PLAVIX) 75 mg tablet Take 75 mg by mouth Daily. diazepam (VALIUM) 2 mg tablet Take 2 mg by mouth nightly as needed. ferrous sulfate (IRON) 28 MG TABS Take 28 mg by mouth Daily. folic acid 1 mg tablet Take 1 mg by mouth Daily. HYDROcodone-acetaminophen (NORCO) 5-325 mg per tablet Take 1-2 tablets by mouth every 4 hours as needed for Pain. 20 tablet 0 HYDROmorphone (DILAUDID) 4 MG tablet Take 4 mg by mouth every 6 hours as needed. levothyroxine (SYNTHROID) 100 mcg tablet Take 75 mcg by mouth every morning (before deshaun akfast). Magnesium 100 MG CAPS Take by mouth Daily. methotrexate 2.5 mg tablet Take 25 mg by mouth Once a week. omeprazole (PRILOSEC) 20 mg capsule Take 20 mg by mouth Twice daily breakfast/Bedtime. POTASSIUM GLUCONATE Take 1 tablet by mouth Daily. predniSONE (DELTASONE) 5 mg tablet Take 10 mg by mouth Daily. Respiratory Therapy Supplies [facility] ResMed S9 auto CPAP 5-9 cm H2O. [...] facility-administered medications on file prior to visit. Pertinent Baseline Labs: WBC Date Value Range Status 01/09/2014 5.5 4.0-11.0 K/uL Final Absolute Neutrophils Date Value Range Status 01/09/2014 4.20 1.80-8.50 K/uL Final Platelet Count Date Value Range Status 01/09/2014 221 140-440 K/uL Final Hgb Date Value Range Status 01/09/2014 12.1 11.5-16.0 g/dL Final Hct Date Value Range Status 01/09/2014 38.0 34.0-47.0 % Final Creatinine, Serum/Plasma Date Value Range Status 07/25/2014 0.80 0.60-1.30 mg/dL Final BILIRUBIN TOTAL Date Value Range Status 01/09/2014 0.5 0.1-1.5 mg/dL Final AST Date Value Range Status 01/09/2014 24 10-42 U/L Final ALT Date Value Range Status 01/09/2014 16 6-45 U/L Final Electronically signed by: Hiral Dsouza RPH 07/31/2014 11:32 documented in this en counter Plan of Treatment +--------+ + + + + | Date | Type | Specialty | Care Team | Description | +--------+ + + + + | 12/30/ | Office | Rheumatology | Santosh Sumner, | | | 2018 | Visit | | [address] | | | | | | [address] [address] | | | | | | [place] [address] | | | | | | [phone] | | | | | | | | +--------+ + + + + | 06/08/ | Office | Physical Medicine | Rocky Santos, | | | 2019 | Visit | and Rehabilitation | MD [address]arela [address] | | | | | | [place] | | | | | | [address] | | | | | | | | +--------+ + + + + | 06/16/ | Appointment | Pulmonology | Eveline Jaffe | | 2019 | | | MD Nichole Carter | | | | | | [address] | | | | | | [place] [address] | | | | | | [phone] | | | | | | | | +--------+ + + + + | 06/16/ | Office | Pulmonology | Eveline Jaffe | | | 2019 | Visit | | MD Nichole Carter | | | | | | [address] | | | | | | [place] [address] | | | | | | [phone] | | | | | | | | +--------+ + + + + | 08/24/ | Office | Cardiology | Anisha Lopez DO | | | 2019 | Visit | | [address] | | | | | | [place] | | | | | | [address] | | | | | | | | +--------+ + + + + documented as of this encounter Visit Diagnoses Not on filedocumented in this encounter"
--- OUTSIDE RECORDS SUMMARY | ~2019-05-05 | XMS | Encounter Summary ---
Demographics + + + | Address | [address] | | | [place] [address] | + + + | Home Phone [...] [place] | | | | | [address] | | + + + + + Care Team Providers + +------+ + | Care Chief Science Officer Name | Role | Phone | + [...] Closed | | Radiology | Diagnoses | Tabitha, | [facility] | | | | | Malignant | MD Adelita | [address] | | | | | neoplasm of | [address] | [place], | | | | | main | [address] | [place] | | | | | bronchus, | [place], | [address] | | | | | right (HCC) | [place] | Phone: | | | | | Procedures | [address] | [phone] | | | | | MRI Brain w | Phone: | Fax: | | | | | wo Contrast | [phone] | [phone] | | | | | | Fax: | | | | | | | [phone] | | +--------+--------+ + + + + Reason for Visit Diagnostic/Screening (Routine) +--------+--------+ + + + + | Status | Reason | Specialty | Diagnoses / | Referred By | Referred To | | | | | Procedures | Contact | Contact | +--------+--------+ + + + + | Closed | | Radiology | Diagnoses | Tabitha, | [facility] | | | | | Malignant | MD Adelita | [address] | | | | | neoplasm of | [address] | [place], | | | | | main | [address] | [place] | | | | | bronchus, | [place], | [address] | | | | | right (HCC) | [place] | Phone: | | | | | Procedures | [address] | [phone] | | | | | MRI Brain w | Phone: | Fax: | | | | | wo Contrast | [phone] | [phone] | | | | | | Fax: | | | | | | | [phone] | | +--------+--------+ + + + + Encounter Details +--------+ + + + + | Date | Type | Department | Care Team | Description | +--------+ + + + + | 09/02/ | Hospital | [facility] | Adelita Lu MD | 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 [address] | [address] | of main bronchus, | | | | [place], | [place], [place] | right (HCC) (Primary | | | | [place] [address] | [address] | Dx); Squamous cell | | | | [phone] | [phone] | carcinoma of lung, | | | | | | unspecified | | | | | | laterality (HCC) | +--------+ + + + + [...] | | | | | [place] [address] | | | | | | [phone] | | | | | | | | +--------+ + + + + | 06/08/ | Office | Physical Medicine | Rocky Santos, | | | 2019 | Visit | and Rehabilitation | MD Varela [address] | | | | | | [place] | | | | | | [address] | | | | | | | | +--------+ + + + + | 06/16/ | Appointment | Pulmonology | Eveline Jaffe | | 2019 | | | MD Nichole Carter [address] | | | | | | [place] | | | | | | [place] [address] | | | | | | [phone] | | | | | | | | +--------+ + + + + | 06/16/ | Office | Pulmonology | Eveline Jaffe | | | 2019 | Visit | | MD Raul [address] | | | | | | [place] | | | | | | [place] [address] | | | | | | [phone] | | | | | | | | +--------+ + + + + | 08/24/ | Office | Cardiology | Anisha Lopez DO | | | 2019 | Visit | | [address] | | | | | | [place] | | | | | | [id number] | | | | | | | | +--------+ + + + + documented as of this encounter Procedures + +--------+ + + + | Procedure Name | Priori | Date/Time | Associated Diagnosis | Comments | | | ty | | | | + +--------+ + + + | CBC WITH | STAT | 09/02/2013 | Squamous cell | Results for this | | DIFFERENTIAL | | 12:24 PM | carcinoma of lung, | procedure are in the | | | | PDT | unspecified | results section. | | | | | laterality (HCC) | | + +--------+ + + + | COMPREHENSIVE | STAT | 09/02/2013 | Squamous cell | Results for this | | METABOLIC PANEL | | 12:24 PM | carcinoma of lung, | procedure are in the | | | | PDT | unspecified | results section. | | | | | laterality (HCC) | | + +--------+ + + + | MRI BRAIN W WO | Routin | 09/02/2013 | Malignant neoplasm | Results for this | | CONTRAST | e | 12:02 PM | of main bronchus, | procedure are in the | | | | PDT | right (HCC) | results section. | + +--------+ + + + documented in this encounter Results Comprehensive Metabolic Panel (09/02/2013 12:24 PM PDT) + + + + + [...] + + + + | K | 4.3 | 3.5 - 5.1 | [facility] | | | | | mmol/L | [facility] | [facility] - | | | | | | LAB[facility]ORY | | + + + + + + | Cl | 104 | 98 - 109 mmol/L | [facility] | | | | | [facility] - | | | | | | [facility] | | + + + + + + | CO2 | 25 | 24 - 31 mmol/L | [facility] | | | | | [facility] | | | | [facility] - | | | | | | [facility]ATORY | | + + + + + + | Anion Gap | 8 | 6 - 17 mmol/L | [facility] | | | | | | [facility] | [facility] | | | | [facility] - | | | | | | [facility]ATORY | | + + + + + + | Glucose | 128 (H) | 70 - 109 mg/dL | [facility] | | | | | | [facility] | [facility] | | | | | [facility] - | | | | | | [facility]ATORY | | + + + + + + | BUN | 18 | 7 - 18 mg/dL | [facility] | | | | | | [facility] | [facility] | [facility] | | | | | | [facility] - | | | | | | LAB[facility]ATORY | | + + + + + + | Creatinine | 0.97 | 0.60 - 1.30 | [facility] | | | | | mg/dL | [facility] | | | | [facility] | [facility] | | | | | | CENTER - | | | | | | LABORATORY | | + + + + + + | eGFR if not | 57 (L)Comment: | >=60 | [facility] | | | | GLOMERULAR FILTRATION | mL/min/1.73m2 | [facility] | | | [facility] | RATE,ESTIMATED | | MEDICAL | | | | mL/min/1.44t5Hxwh than | | CENTER - | | [...] + + | Calcium | 9.2 | 8.3 - 10.5 | [facility] | | | | | mg/dL | [facility] | | | [facility] | | [facility] | | | | | | [facility] - | | | | | | LABORATORY | | + + + + + + | Albumin | 3.4 | 3.2 - 5.0 g/dL | [facility] | | | | | | [facility] | | | [facility] | [facility] | | | | | | [facility] - | | | | | | LAB[facility]ATORY | | + + + + + + | Bilirubin | 0.7 | 0.1 - 1.5 mg/dL | [facility] | | | Total | | | [facility] | | | | | | [facility] | | | | | | [facility] - | | | | | | LAB[facility]ATORY | | + + + + + + | Total | 6.4 | 6.0 - 7.8 g/dL | [facility] | | | Protein | | | [facility] | | | | | | [facility] | | | | | | [facility] - | | | | | | LAB[facility]ATORY | | + + + + + + | AST | 21 | 10 - 42 U/L | [facility] | | | | | | [facility] | [facility] | [facility] | | | | | | [facility] - | | | | | | LAB[facility]ATORY | | + + + + + + | ALT | 18 | 6 - 45 U/L | [facility] | | | | | | [facility] | [facility] | [facility] | | | | | | [facility] - | | | | | | LABORATORY | | + + + + + + | Alkaline | 54 | 40 - 110 U/L | [facility] [...] + + + + | BUN/Creatin | 18.6 | | [facility] | | | ine Ratio | | | [facility] | | | | [facility] | [facility] | | | | | | [facility] - | | | | | | LABORATORY | | + + + + + + + + | Specimen | + + | Blood - Vein sample | | (specimen) | + + + + + + + | Performing | Address | City/State/Zipcode | Phone Number | | Organization | | | | + + + + + | [facility] | [address] | [place], [place] | [phone] | | [facility] | | [address] | | | - LABORATORY | | | | + + + + + | [facility] | [address] | [place], [place] | | | [facility] | | [address] | | | - LABORATORY | | | | + + + + + CBC with Differential (09/02/2013 12:24 PM PDT) + + + + + + | Component | Value | Ref Range | Performed | Pathologist | | | | | At | Signature | + + + + + + | WBC | 4.1 | 4.0 - 11.0 K/uL | [facility] | | | | | | [facility] | | [facility] | [facility] | | | | | [facility] - | | | | | | LABORATORY | | + + + + + + | RBC | 4.03 | 3.70 - 5.20 | [facility] | | | | | M/uL | [facility] | | | | | | [facility] | | | | | | [facility] - | | | | | | LABORATORY | | + + + + + + | Hemoglobin | 11.6 | 11.5 - 16.0 | [facility] | | | | | g/dL | [facility] | | | | | | [facility] | | | | | | [facility] - | | | | | | LABORATORY | | + + + + + + | Hematocrit | 36.2 | 34.0 - 47.0 % | [facility] | | | | | | [facility] | | | | | [facility] | | | | | | [facility] - | | | | | | LABORATORY | | + + + + + + | MCV | 89.8 | 83.0 - 101.0 fL | [facility] | | | | | | [facility] | | [facility] | | | [facility] | | | | | | [facility] - | | | | | | LAB[facility]ATORY | | + + + + + + | MCH | 28.7 | 28.0 - 35.0 pg | [facility] | | | | | | [facility] | | | | | | [facility] | | | | | | [facility] - | | | | | | LAB[facility]ATORY | | + + + + + + | MCHC | 32.0 | 32.0 - 36.0 | [facility] | | | | | g/dL | [facility] | | | | | | [facility] | | | | | | [facility] - | | | | | | LABORATORY | | + + + + + + | RDW-CV | 20.6 (H) | <15.0 % | [facility] | | | | | | [facility] | | [facility] | [facility] | | | | | | [facility] - | | | | | | LAB[facility]ATORY | | + + + + + + | Platelet | 188 | 140 - 440 K/uL | [facility] | | | Count | | | [facility] | | [facility] | [facility] | | | | | | [facility] - | | | | | | LAB[facility]ATORY | | + + + + + + | MPV | 7.6 | fL | [facility] | | | | | | [facility] | [facility] | [facility] | | | | | | [facility] - | | | | | | LAB[facility]ATORY | | + + + + + + | % | 57.0 | 45.0 - 82.0 % | [facility] | | | Neutrophils | | | [facility] | | | | | | [facility] | | | | | | [facility] - | | | | | | LABORATORY | | + + + + + + | % | 32.0 | 20.0 - 45.0 % | [facility] | | | Lymphocytes | | | [facility] | | | | | | [facility] | | | | | | [facility] - | | | | | | LAB[facility]ATORY | | + + + + + + | % Monocytes | 8.8 | 4.0 - 12.0 % | [facility] | | | | | | [facility] | | | [facility] | [facility] | | | | | | [facility] - | | | | | | LAB[facility]ATORY | | + + + + + + | % | 1.3 | 0.0 - 5.0 % | [facility] | | | Eosinophils | | | [facility] | | | | | | [facility] | | | | | | [facility] - | | | | | | LABORATORY | | + + + + + + | % Basophils | 0.9 | 0.0 - 1.0 % | [facility] | | | | | | [facility] | | | | | | [facility] | | | | | | [facility] - | | | | | | LABORATORY | | + + + + + + | Absolute | 2.40 | 1.80 - 8.50 | [facility] | | | Neutrophils | | K/uL | [facility] | | | | | | [facility] | | | | | | CENTER - | | | | | | LABORATORY | | + + + + + + | Absolute | 1.30 | 0.60 - 3.20 | [facility] | | | Lymphocytes | | K/uL | [facility] | | | | | | [facility] | | | | | | [facility] - | | | | | | LABORATORY | | + + + + + + | Absolute | 0.40 | 0.00 - 1.00 | [facility] | | | Monocytes | | K/uL | [facility] | | | | | | [facility] | | | | | | C[facility] - | | | | | | LABORATORY | | + + + + + + | Absolute | 0.10 | 0.00 - 0.40 | [facility] | | | Eosinophils | | K/uL | [facility] | | | | | | [facility] | | | | | | [facility] - | | | | | | LABORATORY | | + + + + + + | Absolute | 0.00 | 0.00 - 0.10 | [facility] | | | Basophils | | K/uL | [facility] | | | [facility] | | [facility] | | | | | | [facility] - | | | | | | LABORATORY | | + + + + + + + + | Specimen | + + | Blood - Vein sample | | (specimen) | + + + + + + + | Performing | Address | City/State/Zipcode | Phone Number | | Organization | | | | + + + + + | [facility] | [address] | [place] | [phone] | | [facility] | | [address] | | | - LABORATORY | | | | + + + + + | [facility] | [address] | [place] | | | [facility] | | [address] | | | - LABORATORY | | | | + + + + + MRI Brain w wo Contrast (09/02/2013 12:02 PM PDT) + + | Specimen | + + | | + + + + + | Narrative | Performed At | + + + | MRI BRAIN W WO CONTRAST 09/02/2013 11:24 AM HISTORY: staging. | [facility] | | Malignant neoplasm of the right main bronchus. Squamous cell | LAB | | carcinoma of the lung. COMPARISON: PET/CT 08/11/2013 | | | TECHNIQUE: Multiplanar, multisequence images of the brain were | | | obtained both with and without IV contrast. Postcontrast images | | | were obtained following administration of 10 cc Gadavist | | | FINDINGS: There is prominence of the cerebral sulci and mild | | | prominence of the lateral ventricles, compatible with cerebral volume | | | loss, not inconsistent with the patient's age. Patchy and confluent | | | subcortical and periventricular central white matter increased | | | T2/FLAIR signal is present, as can be seen with chronic microvascular | | | ischemic gliotic change. There is also prominence of the | | | perivascular spaces in bilateral cerebral hemispheres, with some of | | | these areas demonstrating increased T2/FLAIR signal, without evidence | | | of focal mass or associated abnormal contrast enhancement. The | | | brain otherwise shows normal morphology and signal characteristics. No | | | abnormal contrast enhancement, susceptibility change, or diffusion | | | restriction are present. There is no evidence of mass effect or | | | midline shift. No extra-axial fluid collection is present. The basal | | | cisterns are patent. The major intracranial vessels are | | | unremarkable. No abnormality is seen in the region of the internal | | | acoustic canals or cerebellopontine angles. The midline structures | | | are intact. The pituitary appears normal. The cerebellar tonsils are | | | even with the foramen magnum. There is increased FLAIR signal in | | | the region of the left inferolateral orbit adipose tissue, with | | | possible mild prominence of the soft tissues in this region, best | | | seen on the FLAIR fat-sat images 11 and 12. This area does not | | | appear to be brightly enhancing, although faint enhancement could be | | | obscured due to lack of fat saturation in the postcontrast images and | | | subsequent high background signal. There has been bilateral | | | cataract surgeries. A small focus of fluid signal is seen within a | | | left mastoid air cell, as might be seen with mild mastoiditis. The | | | extracranial soft tissues are within normal limits. 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 Increased FLAIR signal at | | | the inferior low lateral left orbital adipose tissue, somewhat | | | nonspecific, with imaging appearance favoring cellulitis. Metastatic | | | disease would be very unlikely in this location. Possible mild left | | | mastoiditis. Dictated and Signed by: Jose Krishna MD | | | Electronically signed: 09/02/2013 3:18 PM | | + + + + + | Procedure Note | + + | Fabián, Rad Results In - 09/02/2013 3:21 PM PDT MRI BRAIN W WO CONTRAST 09/02/2013 11:24 | | AMHISTORY: staging. Malignant neoplasm of the right main bronchus. Squamouscell | | carcinoma of the lung.COMPARISON: PET/CT 08/11/2013 TECHNIQUE: Multiplanar, | | multisequence images of the brain were obtained bothwith and without IV contrast. | | Postcontrast images were obtained followingadministration of 10 cc | | GadavistFINDINGS:There is prominence of the cerebral sulci and mild prominence of the | | lateralventricles, compatible with cerebral volume loss, not inconsistent with | | thepatient's age.Patchy and confluent subcortical and periventricular central white | | matterincreased T2/FLAIR signal is present, as can be seen with chronic | | microvascularischemic gliotic change. There is also prominence of the perivascular | | spaces inbilateral cerebral hemispheres, with some of these areas demonstrating | | increasedT2/FLAIR signal, without evidence of focal mass or associated abnormal | | contrastenhancement.The brain otherwise shows normal morphology and signal | | characteristics. Noabnormal contrast enhancement, susceptibility change, or diffusion | | restrictionare present. There is no evidence of mass effect or midline shift.No | | extra-axial fluid collection is present.The basal cisterns are patent.The major | | intracranial vessels are unremarkable.No abnormality is seen in the region of the | | internal acoustic canals orcerebellopontine angles.The midline structures are intact. | | The pituitary appears normal.The cerebellar tonsils are even with the foramen | | magnum.There is increased FLAIR signal in the region of the left inferolateral | | orbitadipose tissue, with possible mild prominence of the soft tissues in thisregion, | | best seen on the FLAIR fat-sat images 11 and 12. This area does notappear to be | | brightly enhancing, although faint enhancement could be obscureddue to lack of fat | | saturation in the postcontrast images and subsequent highbackground signal.There has | | been bilateral cataract surgeries.A small focus of fluid signal is seen within a left | | mastoid air cell, as mightbe seen with mild mastoiditis.The extracranial soft tissues | | are within normal limits.IMPRESSION -Prominent perivascular spaces and white matter | | changes suggestive of chronicmicrovessel ischemic gliotic changes of senescence, without | | evidence of abnormalenhancement within the brain parenchyma to suggest presence of | | metastaticdisease.Increased FLAIR signal at the inferior low lateral left orbital | | adipose tissue,somewhat nonspecific, with imaging appearance favoring cellulitis. | | Metastaticdisease would be very unlikely in this location.Possible mild left | | mastoiditis.Dictated and Signed by: Jose Krishna MD Electronically signed: 09/02/2013 | | 3:18 PM | |There is increased FLAIR signal in the region of the left inferolateral orbit | |adipose tissue, with possible mild prominence of the soft tissues in this | |region, best seen on the FLAIR fat-sat images 11 and 12. This area does not | |appear to be brightly enhancing, although faint enhancement could be obscured | |due to lack of fat saturation in the postcontrast images and subsequent high | |background signal. | |There has been bilateral cataract surgeries. | | | |A small focus of fluid signal is seen within a left mastoid air cell, as might | |be seen with mild mastoiditis. | |The extracranial soft tissues are within normal limits. | | | |IMPRESSION - | |Prominent perivascular spaces and white matter changes suggestive of chronic | |microvessel ischemic gliotic changes of senescence, without evidence of abnormal | |enhancement within the brain parenchyma to suggest presence of metastatic | |disease. | |Increased FLAIR signal at the inferior low lateral left orbital adipose tissue, | |somewhat nonspecific, with imaging appearance favoring cellulitis. Metastatic | |disease would be very unlikely in this location. | |Possible mild left mastoiditis. | | | | | |Dictated and Signed by: Jose Krishna MD | | Electronically signed: 09/02/2013 3:18 PM | + + + +---------+ + + | Performing | Address | City/State/Zipcode | Phone Number | | Organization | | | | + +---------+ + + | [facility] | | | [phone] | + +---------+ + + | [facility] | | | [phone] | + +---------+ + + documented in this encounter Visit Diagnoses + + | Diagnosis | + + | Malignant neoplasm of main bronchus, right (HCC) - Primary | + + | Squamous cell carcinoma of lung, unspecified laterality (HCC) | + + documented in this encounter Administered Medications + +--------+ +--------+------+------+ | Medication Order | MAR | Action | Dose | Rate | Site | | | Action | Date | | | | + +--------+ +--------+------+------+ | gadobutrol (GADAVIST) injection | Given | 09/03/19 | 10 mLs | | | | 10 mL 10 mL, Intravenous, ONCE | | 14 11:52 | | | | | PRN, Other, Starting 09/02/13 | | AM PDT | | | | | at 1130, For 1 dose, MRI | | | | | | + +--------+ +--------+------+------+ +---+---+ | | | +---+---+ documented in this encounter"
--- OUTSIDE RECORDS SUMMARY | ~2019-05-05 | XMS | Encounter Summary ---
Demographics + + + | Address | [address] | | | [place] [address] | + + + | Home Phone [...] [place] | | | | | [address] | | + + + + + Care Team Providers + +------+ + | Care Carriage Setter Name | Role | Phone | + [...] + + + + | 09/06/ | Hospital | [facility] | Adelita Lu MD | 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 | Encounter | MED CTR [facility] | [address] | carcinoma of lung, | | | | INFUSION [address] | [place], [place] | stage I, unspecified | | | | [place], | [address] | laterality (HCC) | | | | [place] [address] | [phone] | (Primary Dx); | | | | [phone] | | Recurrent squamous | | | | | | cell carcinoma of | | | | | | lung, unspecified | | | | | | laterality (HCC); | | | | | | Pulmonary nodules | +--------+ + + + + Social [...] mouth | 118 mL | 0 | 09/01/19 | | | HYDROcodone-acetamin | 4 times [...] | 2018 | Visit | | [address] | | | | | | [place] | | | | | | [place] [address] | | | | | | [phone] | | | | | | | | +--------+ + + + + | 06/08/ | Office | Physical Medicine | Rocky Santos, | | | 2019 | Visit | and Rehabilitation | MD [address] | | | | | | [place] | | | | | | [address] | | | | | | | | +--------+ + + + + | 06/16/ | Appointment | Pulmonology | Eveline Jaffe | | | 2019 | | | MD [address] | | | | | | [address] [place] | | | | | | [place] [address] | | | | | | [phone] | | | | | | | | +--------+ + + + + | 06/16/ | Office | Pulmonology | Eveline Jaffe | | | 2019 | Visit | | MD [address] | | | | | | [address] [place] | | | | | | [place] [address] | | | | | | [phone] | | | | | | | | +--------+ + + + + | 08/24/ | Office | Cardiology | Anisha Lopez DO | | | 2019 | Visit | | [address] | | | | | | [place] | | | | | | [address] | | | | | | | | +--------+ + + + + documented as of this encounter Procedures + +--------+ + + + | Procedure Name | Priori | Date/Time | Associated Diagnosis | Comments | | | ty | | | | + +--------+ + + + | CBC WITH | STAT | 09/06/2014 | Recurrent squamous | Results for this | | DIFFERENTIAL | | 9:04 AM | cell carcinoma of | procedure are in the | | | | PDT | lung, unspecified | results section. | | | | | laterality (HCC) | | | | | | Pulmonary nodules | | + +--------+ + + + | COMPREHENSIVE | STAT | 09/06/2014 | Recurrent squamous | Results for this | | METABOLIC PANEL | | 9:04 AM | cell carcinoma of | procedure are in the | | | | PDT | lung, unspecified | results section. | | | | | laterality (HCC) | | | | | | Pulmonary nodules | | + +--------+ + + + documented in this encounter Results CBC with Differential (09/06/2014 9:04 AM PDT) + + + + + + | Component | Value | Ref Range | Performed | Pathologist | | | | | At | Signature | + + + + + + | WBC | 1.1 (LL)Comment: Alert | 4.0 - 11.0 K/uL | [facility] | | | | Value: Clinical Provider | | [facility] | | | | notification at Nurses | | MEDICAL | | | | discretion. | | CENTER - | | | | | | LABORATORY | | + + + + + + | RBC | 3.08 (L) | 3.70 - 5.20 | [facility] | | | | | M/uL | [facility] | | | | | | MEDICAL | | | | | | CENTER - | | | | | | LABORATORY | | + + + + + + | Hemoglobin | 9.6 (L) | 11.5 - 16.0 | [facility] | | | | | g/dL | [facility] | | | | | | MEDICAL | | | | | | CENTER - | | | | | | LABORATORY | | + + + + + + | Hematocrit | 29.7 (L) | 34.0 - 47.0 % | [facility] | | | | | | [facility] | | | | | | MEDICAL | | | | | | CENTER - | | | | | | LABORATORY | | + + + + + + | MCV | 96.5 | 83.0 - 101.0 fL | [facility] | | | | | | [facility] | | | | [facility] | MEDICAL | | | | | | CENTER - | | | | | | LABORATORY | | + + + + + + | MCH | 31.4 | 28.0 - 35.0 pg | [facility] | | | | | | [facility] | | | | | | MEDICAL | | | | | | CENTER - | | | | | | LABORATORY | | + + + + + + | MCHC | 32.5 | 32.0 - 36.0 | [facility] | | | | | g/dL | [facility] | | | | | | MEDICAL | | | | | | CENTER - | | | | | | LABORATORY | | + + + + + + | RDW-CV | 21.9 (H) | <15.0 % | [facility] | | | | | | [facility] | | | | [facility] | MEDICAL | | | | | | CENTER - | | | | | | LABORATORY | | + + + + + + | Platelet | 79 (L) | 140 - 440 K/uL | [facility] | | | Count | | | [facility] | | | [facility] | | MEDICAL | | | | | | CENTER - | | | | | | LABORATORY | | + + + + + + | MPV | 8.1 | fL | [facility] | | | | | | [facility] | | | | | | MEDICAL | | | | | | CENTER - | | | | | | LABORATORY | | + + + + + + | % | 77.0 | 45.0 - 82.0 % | [facility] | | | Neutrophils | | | [facility] | | | | | | MEDICAL | | | | | | CENTER - | | | | | | LABORATORY | | + + + + + + | % | 13.2 (L) | 20.0 - 45.0 % | [facility] | | | Lymphocytes | | | [facility] | | | | | | MEDICAL | | | | | | CENTER - | | | | | | LABORATORY | | + + + + + + | % Monocytes | 7.9 | 4.0 - 12.0 % | [facility] | | | | | | [facility] | | | | | | MEDICAL | | | | | | CENTER - | | | | | | LABORATORY | | + + + + + + | % | 1.2 | 0.0 - 5.0 % | [facility] | | | Eosinophils | | | [facility] | | | | | | MEDICAL | | | | | | CENTER - | | | | | | LABORATORY | | + + + + + + | % Basophils | 0.7 | 0.0 - 1.0 % | [facility] | | | | | | [facility] | | | | | | MEDICAL | | | | | | CENTER - | | | | | | LABORATORY | | + + + + + + | Absolute | 0.90 (L) | 1.80 - 8.50 | [facility] | | | Neutrophils | | K/uL | [facility] | | | | | | MEDICAL | | | | | | CENTER - | | | | | | LABORATORY | | + + + + + + | Absolute | 0.10 (L) | 0.60 - 3.20 | [facility] | | | Lymphocytes | | K/uL | [facility] | | | | | | MEDICAL | | | | | | CENTER - | | | | | | LABORATORY | | + + + + + + | Absolute | 0.10 | 0.00 - 1.00 | [facility] | | | Monocytes | | K/uL | [facility] | [...] + | [facility] | [address] | [place] | [phone] | | [facility] | | [address] | | | - LABORATORY | | | | + + + + + Comprehensive Metabolic Panel (09/06/2014 9:04 AM PDT) + + + + + + | Component | Value | Ref Range | Performed | Pathologist | | | | | At | Signature | + + + + + + | Na | 136 | 136 - 149 | [facility] | | | | | mmol/L | [facility] | | | | | | MEDICAL | | | | | | CENTER - | | | | | | LABORATORY | | + + + + + + | K | 3.7 | 3.5 - 5.1 | [facility] | | | | | mmol/L | [facility] | | | [facility] | | MEDICAL | | | | | | CENTER - | | | | | | LABORATORY | | + + + + + + | Cl | 106 | 98 - 109 mmol/L | [facility] | | | | | | [facility] | | | | | | MEDICAL | | | | | | CENTER - | | | | | | LABORATORY | | + + + + + + | CO2 | 27 | 24 - 31 mmol/L | [facility] | | | | | | [facility] | | | | | | MEDICAL | | | | | | CENTER - | | | | | | LABORATORY | | + + + + + + | Anion Gap | 3 | 3 - 16 mmol/L | [facility] | | | | | | [facility] | | | | | | MEDICAL | | | | | | CENTER - | | | | | | LABORATORY | | + + + + + + | Glucose | 110 (H) | 70 - 109 mg/dL | [facility] | | | | | | [facility] | | | | | | MEDICAL | | | | | | CENTER - | | | | | | LABORATORY | | + + + + + + | BUN | 8 | 7 - 18 mg/dL | [facility] | | | | | | [facility] | | | | | | MEDICAL | | | | | | CENTER - | | | | | | LABORATORY | | + + + + + + | Creatinine | 0.72 | 0.60 - 1.30 | [facility] | [...] | | | FILTRATION | mL/min/1.73m2 | [facility] | | | MOZAMBICAN | RATE,ESTIMATED | | MEDICAL | | | | mL/min/1.75s5Wixn than | | CENTER - | | [...] + + + + | Calcium | 8.2 (L) | 8.3 - 10.5 | [facility] | | | | | mg/dL | [facility] | | | | | | MEDICAL | | | | | | CENTER - | | | | | | LABORATORY | | + + + + + + | Albumin | 2.8 (L) | 3.2 - 5.0 g/dL | [facility] | | | | | | [facility] | | | | | | MEDICAL [...] + + + + | Total | 5.3 (L) | 6.0 - 7.8 g/dL | [facility] | | | Protein | | | [facility] | | | | | | MEDICAL | | | | | | CENTER - | | | | | | LABORATORY | | + + + + + + | AST | 25 | 10 - 42 U/L | [facility] | | | | | | [facility] | | | | | | MEDICAL | | | | | | CENTER - | | | | | | LABORATORY | | + + + + + + | ALT | 23 | 6 - 45 U/L | [facility] | | | | | | [facility] | | | | | | MEDICAL | | | | | | CENTER - | | | | | | LABORATORY | | + + + + + + | Alkaline | 49 | 40 - 110 U/L | [facility] | | | Phosphatase | | | [facility] | | | | | | MEDICAL | | | | | | CENTER - | | | | | | LABORATORY | | + + + + + + | Globulin | 2.5 | g/dL | [facility] | | | [...] + + + + | BUN/Creatin | 11.1 | | [facility] | | | ine [...] [address] | [place] | [phone] | | [facility] | | [address] | | | - LABORATORY | | | | + + + + + documented in this encounter Visit Diagnoses + + | Diagnosis | + + | Squamous cell carcinoma of lung, stage I, unspecified laterality (HCC) - Primary | + + | Recurrent squamous cell carcinoma of lung, unspecified laterality (HCC) | + + | Pulmonary nodules Other nonspecific abnormal finding of lung field | + + documented in this encounter Administered Medications + +--------+ +-------+------+------+ | Medication Order | MAR | Action | Dose | Rate | Site | | | Action | Date | | | | + +--------+ +-------+------+------+ | heparin 100 units/mL flush 500 | Given | 09/07/19 | 500 | | | | Units 500 Units (5 mL), | | 15 10:54 | Units | | | | Intracatheter, PRN, Line Care, | | AM PDT | | | | | Starting 09/06/14 at 1002 | | | | | | + +--------+ +-------+------+------+ +---+---+ | | | +---+---+ documented in this encounter"
--- OUTSIDE RECORDS SUMMARY | ~2019-05-05 | XMS | Encounter Summary ---
Demographics + + + | Address | [address] | | | [place] [address] | + + + | Home Phone | | + + + | Preferred Language | Unknown | + + + | Marital Status | | + + + | Sikhism Affiliation | Unknown | + + + | Race | Unknown | + + + | Ethnic Group | Unknown | + + + Author + + + | Author | [facility] | | | and [place] | + + + | Organization | [facility] | | | [...] [place] | | | | | [address] | | + + + + + Care Team Providers + +------+ + | Care Router Tender Name | Role | Phone | + +------+ + | Caitlin Chino MD | PCP | | + +------+ + Encounter Details +--------+ + + + + | Date | Type | Department | Care Team | Description | +--------+ + + + + | 09/28/ | Anesthesia | [facility] | [facility] | | | 2018 | Event | MED [facility] OP | Sameer, DO [address] | | | | | [address] | [facility] | | | | | [place] | [place] [address] | | | | | [address] | [phone] | | | | | [phone] | | | +--------+ + + + + Anesthesia Record + + + + + | Procedure Name | Responsible | Anesthesia Start | Anesthesia Stop Time | | | Anesthesiologist | Time | | + + + + + | PROCEDURE NOT | | | | | PERFORMED - Left | | | | | Thumb, Long and | | | | | Index Trigger Finger | | | | | Release (Left | | | | | Finger) | | | | + + + + + + + | No events on file. | + + +------+ | Meds | +------+ + + + No medications | on file. | + + + + + | No agents on file. | + + + + | No blood administrations on file. | + + +--------+ + +---------+ | Type | Details | Placement | Removal | +--------+ + +---------+ | Implan | 12/14/18 (failed attempt, was not | 12/14/18 0000 by | | | t | able to withdraw blood); yes; | Sheryl Soria RN | | | Port/S | Yes; Chlorhexidine/Isopropyl | | | | sharron | Alcohol; Yes; Yes; Large sterile | | | | | drape, Sterile gloves, Mask; | | | | | Patient room; Registered nurse; | | | | | No; Other (specify); | | | | | infraclavicular fossa, left; | | | | | pressure injectable catheter; | | | | | distraction; tolerated well; 2; | | | | | single port; I had Pt raise her | | | | | left arm over her head, turn head | | | | | to right and raised HOB. Was not | | | | | able to draw blood back.. | | | | | Aborted acess and started a 22j | | | | | in her right hand. | | | +--------+ + +---------+ | Wound | 12/14/18; 1222; Incision; Left; | 12/14/18 1222 by | | | | hand | José Miguel Draper RN | | +--------+ + +---------+ documented in this encounter Social History + [...] | 2018 | Visit | | [address] | | | | | | [facility] | | | | | | [place] [address] | | | | | | [phone] | | | | | | | | +--------+ + + + + | 06/08/ | Office | Physical Medicine | Rocky Santos, | | | 2019 | Visit | and Rehabilitation | MD Nichole [address] | | | | | | [place] | | | | | | [address] | | | | | | | | +--------+ + + + + | 06/16/ | Appointment | Pulmonology | Eveline Jaffe | | 2019 | | | MD Nichole Carter | | | | | | [address] [place] | | | | | | [place] [address] | | | | | | [phone] | | | | | | | | +--------+ + + + + | 06/16/ | Office | Pulmonology | Eveline Jaffe | | | 2019 | Visit | | MD Nichole Carter | | | | | | [address] [place] | | | | | | [place] [address] | | | | | | [phone] | | | | | | | | +--------+ + + + + | 08/24/ | Office | Cardiology | Lopez, Anisha, DO | | | 2020 | Visit | | [address] | | | | | | [place] | | | | | | [address] | | | | | | | | +--------+ + + + + documented as of this encounter Visit Diagnoses Not on filedocumented in this encounter"
--- OUTSIDE RECORDS SUMMARY | ~2019-05-05 | XMS | Encounter Summary ---
Demographics + + + | Address | [address] | | | [place] [address] | + + + | Home Phone | | + + + | Preferred Language | Unknown | + + + | Marital Status | | + + + | Mormon Affiliation | Unknown | + + + [...] [place] | | | | | [address] | | + + + + + Care Team Providers + +------+ + | Care Adjunct Faculty For Medical Terminology Name | Role | Phone | + [...] + + | 12/31/ | Refill | [facility] | Noreen Stanley | Medication Refill | | 2015 | | MED CTR MEDICAL | P, RN | | | | | [facility] [address] | | | | | | [address] | | | | | | [place] [address] | | | | | | [phone] | | | +--------+--------+ + + + [...] | | | | | [facility] | | | | | | [place] [address] | | | | | | [phone] | | | | | | | | +--------+ + + + + | 06/08/ | Office | Physical Medicine | Rocky Santos, | | | 2019 | Visit | and Rehabilitation | [address] | | | | | | [place] | | | | | | [id number] | | | | | | | | +--------+ + + + + | 06/16/ | Appointment | Pulmonology | Eveline Jaffe | | | 2019 | | | MD [address] | | | | | | [address] [place] | | | | | | [place] [address] | | | | | | [phone] | | | | | | | | +--------+ + + + + | 06/16/ | Office | Pulmonology | Eveline Jaffe | | | 2019 | Visit | | MD Nichole Carter | | | | | | [address] [place] | | | | | | [place] [address] | | | | | | [phone] | | | | | | | | +--------+ + + + + | 08/24/ | Office | Cardiology | Anisha Lopez DO | | 2019 | Visit | | [address] | | | | | | [place] | | | | | | [address] | | | | | | | | +--------+ + + + + documented as of this encounter Visit Diagnoses + + | Diagnosis | + + | Gastroesophageal reflux disease without esophagitis - Primary Esophageal reflux | + + documented in this encounter"
--- OUTSIDE RECORDS SUMMARY | ~2019-05-05 | XMS | Encounter Summary ---
Demographics + + + | Address | [address] | | | [place] [address] | + + + | Home Phone | | + + + | Preferred Language | Unknown | + + + | Marital Status | | + + + | Denominational Affiliation | Unknown | + + + | Race | Unknown | + + + | Ethnic Group | Unknown | + + + Author + + + | Author | [facility] | | | and [place] | + + + | Organization | [facility] | | | [...] [place] | | | | | [address] | | + + + + + Care Team Providers + +------+ + | Care Palm And Back Forger Name | Role | Phone | + +------+ + | Davis Ivan MD | PCP | | + +------+ + Reason for Visit + + + | Reason | Comments | + + + | Medication Refill | | | Assistance | | + + + Encounter Details +--------+ + + + + | Date | Type | Department | Care Team | Description | +--------+ + + + + | 10/02/ | Telephone | [facility] [place] | Offenstein, | Medication Refill | | 2015 | | PULMONARY [address] | Ayana Looney MD | Assistance | | | | [place], | | | | | | [place] [address] | | | | | | [phone] | | | +--------+ + + + [...] | 2018 | Visit | | [address] | | | | | | [facility] | | | | | | [place] [address] | | | | | | [phone] | | | | | | | | +--------+ + + + + | 06/08/ | Office | Physical Medicine | Rocky Santos, | | | 2019 | Visit | and Rehabilitation | [address] | | | | | | [place] | | | | | | [address] | | | | | | | | +--------+ + + + + | 06/16/ | Appointment | Pulmonology | Eveline Jaffe | | | 2019 | | | MD [address] | | | | | | [address] [place] | | | | | | [place] [address] | | | | | | [phone] | | | | | | | | +--------+ + + + + | 06/16/ | Office | Pulmonology | Eveline Jaffe | | | 2019 | Visit | | MD [address] | | | | | | [address] [place] | | | | | | [place], [place] [address] | | | | | | [phone] | | | | | | | | +--------+ + + + + | 08/24/ | Office | Cardiology | Anisha Lopez DO | | | 2019 | Visit | | [address] | | | | | | [place] | | | | | | [address] | | | | | | | | +--------+ + + + + documented as of this encounter Visit Diagnoses Not on filedocumented in this encounter"
--- OUTSIDE RECORDS SUMMARY | ~2019-05-05 | XMS | Encounter Summary ---
Demographics + + + | Address | [address] | | | [place] [address] | + + + | Home Phone | | + + + | Preferred Language | Unknown | + + + | Marital Status | | + + + | Anabaptism Affiliation | Unknown | + + + | Race | Unknown | + + + | Ethnic Group | Unknown | + + + Author + + + | Author | [facility] | | | and [place] | + + + | Organization | [facility] | | | [...] [place] | | | | | [address] | | + + + + + Care Team Providers + +------+ + | Care Laminating Machine Operator Name | Role | Phone [...] + + | 10/07/ | Telephone | [facility] | Adelita Lu MD | Other | | 2013 | | MED CTR MEDICAL | [address] [facility] | | | | | [facility]Y CLIN[facility] [address] | [place] | | | | | [facility] | [address] | | | | | [place] [address] | [phone] | | | | | [phone] | | | +--------+ + + + [...] W | | | | | | [facility] | | | | | | [place] [address] | | | | | | [phone] | | | | | | | | +--------+ + + + + | 06/08/ | Office | Physical Medicine | Rocky Santos, | | | 2019 | Visit | and Rehabilitation | [address] | | | | | | [place] | | | | | | [address] | | | | | | | | +--------+ + + + + | 06/16/ | Appointment | Pulmonology | Eveline Jaffe | | | 2019 | | | MD [address] | | | | | | [address] [place] | | | | | | [place] [address] | | | | | | [phone] | | | | | | | | +--------+ + + + + | 06/16/ | Office | Pulmonology | Eveline Jaffe | | | 2019 | Visit | | MD [address] | | | | | | [address] [place] | | | | | | [place], [place] [address] | | | | | | [phone] | | | | | | | | +--------+ + + + + | 08/24/ | Office | Cardiology | Anisha Lopez DO | | | 2019 | Visit | | [address] | | | | | | [place] | | | | | | [address] | | | | | | | | +--------+ + + + + documented as of this encounter Visit Diagnoses Not on filedocumented in this encounter"
--- OUTSIDE RECORDS SUMMARY | ~2019-05-05 | XMS | Encounter Summary ---
Demographics + + + | Address | [address] | | | [place] [address] | + + + | Home Phone | | + + + | Preferred Language | Unknown | + + + | Marital Status | | + + + | Sabianism Affiliation | Unknown | + + + | Race | Unknown | + + + | Ethnic Group | Unknown | + + + Author + + + | Author | [facility] | | | and [place] | + + + | Organization | [facility] | | | and [...] [place] | | | | | [address] | | + + + + + Care Team Providers + +------+ + | Care Drafter Mechanical Name | Role | Phone | + [...] | | | | | | | Osteoarthrit | | | | | | | is of first | | | | | | | carpometacar | | | | | | | pal ([facility]) | | | | | | | joint of one | | | | | | | hand | | | | | | | (M18.9) | | | | | | | Procedures | | | | | | | [place] REPAIR | | | | | | | INTERCARP/CA | | | | | | | RP-METACARP | | | | | | | JT Right | | | | | | | [facility] | | | | | | | Arthroplasty | | | +--------+--------+ + + + + Encounter Details +--------+---------+ + + + | Date | Type | Department | Care Team | Description | +--------+---------+ + + + | 10/27/ | Surgery | [facility] | Giuliano Padilla, | Right [facility] | | 2018 | | MED CTR OR [facility] OP | MD [address] | Arthroplasty | | | | [address] | [place], [place] | | | | | [place], [place] | [address] | | | | | [address] | | | | | | [phone] | | | +--------+---------+ + + + [...] + + + | Blood Pressure | 120/59 | 10/27/2017 1:45 PM | | | | | PDT | | + + + + + | Pulse | 75 | 10/27/2017 1:45 PM | | | | | PDT | | + + + + + | Temperature | 37.4 C (99.3 F) | 10/27/2017 11:20 AM | | | | | PDT | | + + + + + | Respiratory Rate | 15 | 10/27/2017 1:45 PM | | | | | PDT | | + + + + + | Oxygen Saturation | 95% | 10/27/2017 1:45 PM | | | | | PDT | | + + + + + | Inhaled Oxygen | - | - | | | Concentration | | | | + + + + + | Weight | 59.5 kg (131 lb 2.8 | 10/27/2017 8:58 AM | | | | oz) | PDT | | + + + + + | Height | 157.5 cm (5' 2") | 10/27/2017 8:58 AM | | | | | PDT | | + + + + + | Body Mass Index | 23.99 | 10/27/2017 8:58 AM | | | | | PDT | | + + + + + documented in this encounter Discharge Instructions Giuliano Drake MD - 10/27/2017Keep hand elevated and wiggle fingers as much as tolerated documented in this encounter Medications at Time [...] 2 tablets by | | 0 | //20 | | | (DELTASONE) 5 mg | [...] | | | | type ([facility]) | | | | | [...] | | | | | | [facility] | | | | | | [place] [address] | | | | | | [phone] | | | | | | | | +--------+ + + + + | 06/08/ | Office | Physical Medicine | Rocky Santos, | | | 2019 | Visit | and Rehabilitation | [address] | | | | | | [place] | | | | | | [address] | | | | | | | | +--------+ + + + + | 06/16/ | Appointment | Pulmonology | Eveline Jaffe | | | 2019 | | | MD [address] | | | | | | [address] [place] | | | | | | [place] [address] | | | | | | [phone] | | | | | | | | +--------+ + + + + | 06/16/ | Office | Pulmonology | Eveline Jaffe | | | 2019 | Visit | | MD [address]ole Carter [address] | | | | | | [address] [place] | | | | | | [place] [address] | | | | | | [phone] | | | | | | | | +--------+ + + + + | 08/24/ | Office | Cardiology | Anisha Lopez DO | | | 2019 | Visit | | [address] | | | | | | [place] | | | | | | [address] | | | | | | | [...] this | | CHARGE | e | 11:14 AM | | procedure are in the | | | | PDT | | results section. | + +--------+ + + + | ARTHROPLASTY HAND | | 10/27/2017 | Osteoarthritis of | | | | | 10:18 AM | first | | | | | PDT | carpometacarpal | | | | | [...] plasty | | | Kit | +---+--------+ documented in this encounter Results SHEFALI Noyola Statchuckie No Charge (10/27/2017 11:14 AM PDT) + + | Specimen | [...] | acetaminophen (TYLENOL) tablet | Given | 10/28/19 | 975 mg | | | | 975 mg 975 mg (rounded from | | 18 9:20 | | | | | 1,000 mg), Oral, ONCE, Tue | | AM PDT | | | | | 10/27/17 at 0915, For 1 dose, | | | | | | | Pre-op | | | | | | + +--------+ +--------+------+------+ +---+---+ | | | +---+---+ + +-------+ +--------+---+---+ | albuterol 2.5 mg/3 mL nebulizer | Given | 10/28/19 | 2.5 mg | | | | solution 2.5 mg 2.5 mg, | | 18 9:18 | | | | | Nebulization, ONCE PRN, Wheezing, | | AM PDT | | | | | Starting 10/27/17 at 0859, | | | | | | | For 1 dose, RT will administer., | | | | | | | Pre-op | | | | | | + +-------+ +--------+---+---+ + +---+ | | | + +---+ | albuterol 2.5 mg/3 mL nebulizer | | | solution 2.5 mg 2.5 mg, | | | Nebulization, ONCE PRN, Wheezing, | | | Starting 10/27/17 at 1114, | | | For 1 dose, Notify anesthesia if | | | patient is wheezing and does not | | | have a history of asthma or COPD | | | or current smoking., | | | Recovery/Phase I | | + +---+ | | | + +---+ | albuterol-ipratropium (DUONEB) | | | 2.5-0.5 mg/3 mL nebulizer | | | solution 3 mL 3 mL, | | | Nebulization, ONCE PRN, Wheezing, | | | Starting 10/27/17 at 0859, | | | For 1 dose, Pre-op | | + +---+ | | [...] glucose < 50, | | | Starting 10/27/17 at 0859, | | | Repeat in 15 min if blood glucose | | | remains < 70 mg/dL. Repeat | | | blood glucose in 30 min once | | | blood glucose > 70., Pre-op | | + +---+ | | | + +---+ | fentaNYL (PF) injection 25-50 | | | mcg 25-50 mcg, Intravenous, | | | EVERY 15 MIN PRN, Pain, pain, | | | Starting Thu10/27/17 at 0859, Max | | | total dose 100 mcg., Pre-op | | + +---+ | | | + +---+ + +-------+ +--------+---+---+ | fentaNYL (PF) injection 25-50 | Given | 10/28/19 | 25 mcg | | | | mcg 25-50 mcg, Intravenous, | | 18 12:57 | | | | | EVERY 5 MIN PRN, Pain, Starting | | PM PDT | | | | | 10/27/17 at 1114, Maximum | | | | | | | total dose 250 mcg. PACU IV | | | | | | | Narcotic Priority: Only use | | | | | | | fentanyl for immediate post-op | | | | | | | pain (one dose) or breakthrough | | | | | | | pain when any other IV narcotics | | | | | | | ordered have been ineffective (if | | | | | | | ordered). If both morphine and | | | | | | | hydromorphone are ordered, use | | | | | | | morphine first, and use | | | | | | | hydromorphone if morphine | | | | | | | ineffective., Recovery/Phase I | | | | | | + +-------+ +--------+---+---+ +-------+ +--------+---+---+ | Given | 10/28/19 | 25 mcg | | | | | 18 12:36 | | | | | | PM PDT | | | | +-------+ +--------+---+---+ | Given | 10/28/19 | 25 mcg | | | | | 18 12:31 | | | | | | PM PDT | | | | +-------+ +--------+---+---+ +---+---+ | | | +---+---+ + +-------+ +--------+---+---+ | gabapentin (NEURONTIN) capsule | Given | 10/28/19 | 600 mg | | | | 600 mg 600 mg, Oral, ONCE, Tue | | 18 9:20 | | | | | 10/27/17 at 0915, For 1 dose, | | AM PDT | | | | | Pre-op | | | | | | + +-------+ +--------+---+---+ +---+---+ | | | +---+---+ + +-------+ +---------+---+---+ | HYDROcodone-acetaminophen | Given | 10/28/19 | 2 | | | | (NORCO) 5-325 mg per tablet 1-2 | | 18 1:44 | tablets | | | | tablet 1-2 tablet, Oral, EVERY 4 | | PM PDT | | | | | HOURS PRN, Pain, Starting Tue | | | | | | | 10/27/17 at 1313, Post-op/Phase II | | | | | | + +-------+ +---------+---+---+ +---+---+ | | | +---+---+ + +-------+ +---------+---+---+ | HYDROmorphone (DILAUDID) | Given | 10/28/19 | 0.25 mg | | | | injection 0.2-0.5 mg 0.2-0.5 mg, | | 18 12:53 | | | | | Intravenous, EVERY 5 MIN PRN, | | PM PDT | | | | | Pain, Starting 10/27/17 at | | | | | | | 1114, Maximum total dose 4 mg. | | [...] | | | | | and use hydromorphone if morphine | | | | | | | ineffective., Recovery/Phase I | | | | | | + +-------+ +---------+---+---+ +-------+ +---------+---+---+ | Given | 10/28/19 | 0.25 mg | | | | | 18 12:46 | | | | | | PM PDT | | | | +-------+ +---------+---+---+ +---+---+ | | | +---+---+ + +---------+ +---+---+---+ | lactated ringers (LR) infusion | New Bag | 10/28/19 | | | | | at 10-100 mL/hr, Intravenous, | | 18 10:18 | | | | | CONTINUOUS, Starting Thu10/27/17 | | AM PDT | | | | | at 0915, TKO., Pre-op | | | | | | + +---------+ +---+---+---+ + +---+ | | | + +---+ | ondansetron (ZOFRAN) injection | | | 4 mg 4 mg, Intravenous, ONCE | | | PRN, Nausea, Starting Thu10/27/17 | | | at 1114, For 1 dose, | | | Recovery/Phase I | | + +---+ | | | + +---+ + +-------+ +--------+---+ + | ropivacaine (NAROPIN) 2 mg/mL | Given | 10/28/19 | 20 mLs | | Surgical | | (0.2%) injection PRN, Starting | | 18 10:38 | | | Site | | Thu10/27/17 at 1038, Intra-op | | AM PDT | | | | + +-------+ +--------+---+ + +---+---+ | | | +---+---+ documented in this encounter
--- OUTSIDE RECORDS SUMMARY | ~2019-05-05 | XMS | Encounter Summary ---
Demographics + + + | Address | [address] | | | [place] [address] | + + + | Home Phone | | + + + | Preferred Language | Unknown | + + + | Marital Status | | + + + | Mormonism Affiliation | Unknown | + + + | Race | Unknown | + + + | Ethnic Group | Unknown | + + + Author + + + | Author | [facility] | | | and [place] | + + + | Organization | [facility] | | [...] [place] | | | | | [address] | | + + + + + Care Team Providers + +------+ + | Care Woodyard Operator Name | Role | Phone | [...] + + + + | 08/15/ | Hospital | [facility] | Adelita Lu MD | 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 Discharged via wheelchair. To home. Verified that patient has antinausea medications at home. Future appointments and After Visit Summary (AVS) provided. documented in thi s encounter Plan of Treatment +--------+ + + + + | Date | Type | Specialty | Care Team | Description | +--------+ + + + + | 05/30/ | Office | Rheumatology | Santosh Sumner, | | | 2018 | Visit | | [address] | | | | | | [place] | | | | | | [place] [address] | | | | | | [phone] | | | | | | | | +--------+ + + + + | 06/08/ | Office | Physical Medicine | Rocky Santos, | | | 2019 | Visit | and Rehabilitation | MD [address] | | | | | | [place] | | | | | | [id number] | | | | | | | | +--------+ + + + + | 06/16/ | Appointment | Pulmonology | Eveline Jaffe | | 2019 | | | MD [address] | | | | | | [place] | | | | | | [place] [address] | | | | | | [phone] | | | | | | | | +--------+ + + + + | 06/16/ | Office | Pulmonology | Eveline Jaffe | | | 2019 | Visit | | MD [address] | | | | | | [place] | | | | | | [place] [address] | | | | | | [phone] | | | | | | | | +--------+ + + + + | 08/24/ | Office | Cardiology | Anisha Lopez DO | | | 2019 | Visit | | [address] | | | | | | [place] | | | | | | [address] | | | | | | | | +--------+ + + + + documented as of this encounter Procedures + +--------+ + + + | Procedure Name | Priori | Date/Time | Associated Diagnosis | Comments | | | ty | | | | + +--------+ + + + | CBC WITH | STAT | 08/15/2014 | Recurrent squamous | Results for this | | DIFFERENTIAL | | 9:10 AM | cell carcinoma of | procedure are in the | | | | PDT | lung, unspecified | results section. | | | | | laterality (HCC) | | | | | | Pulmonary nodules | | + +--------+ + + + | COMPREHENSIVE | STAT | 08/15/2014 | Recurrent squamous | Results for this | | METABOLIC PANEL | | 9:10 AM | cell carcinoma of | procedure are in the | | | | PDT | lung, unspecified | results section. | | | | | laterality (HCC) | | | | | | Pulmonary nodules | | + +--------+ + + + documented in this encounter Results CBC with Differential (08/15/2014 9:10 AM PDT) + + + + + + | Component | Value | Ref Range | Performed | Pathologist | | | | | At | Signature | + + + + + + | WBC | 6.9 | 4.0 - 11.0 K/uL | [facility] | | | | [facility] | | | | | | [facility]ORY | | + + + + + + | RBC | 3.88 | 3.70 - 5.20 | [facility] | | | | | M/uL | [facility] | | [facility] | [facility] | | | | [facility] - | | | | | | LABORATORY | | + + + + + + | Hemoglobin | 11.8 | 11.5 - 16.0 | [facility] | | | | | g/dL | [facility] | | | [facility] | [facility] | | | | | [facility] - | | | | | | LABORATORY | | + + + + + + | Hematocrit | 36.0 | 34.0 - 47.0 % | [facility] | | | | | | [facility] | [facility] | [facility] | | | | | [facility] | | | | | | LAB[facility]ATORY | | + + + + + + | MCV | 92.8 | 83.0 - 101.0 fL | [facility] | | | | | | [facility] | [facility] | | | | [facility] | | | | | | LAB[facility]ATORY | | + + + + + + | MCH | 30.5 | 28.0 - 35.0 pg | [facility] | | | | | | [facility] | | | [facility] | [facility] | | | | | [facility] - | | | | | | LAB[facility]ATORY | | + + + + + + | MCHC | 32.9 | 32.0 - 36.0 | [facility] | | | | | g/dL | [facility] | [facility] | | | [facility] - | | | | | | LAB[facility]ATORY | | + + + + + + | RDW-CV | 18.7 (H) | <15.0 % | [facility] | | | | | [facility] | [facility] | | | | [facility] | | | | | | LAB[facility]ATORY | | + + + + + + | Platelet | 229 | 140 - 440 K/uL | [facility] | | | Count | | | [facility] | [facility] | [facility] | | | | | [facility] - | | | | | | LAB[facility]ATORY | | + + + + + + | MPV | 7.4 | fL | [facility] | | | | | | [facility] | | | | [facility] - | | | | | | LAB[facility]ATORY | | + + + + + + | % | 74.7 | 45.0 - 82.0 % | [facility] | | | Neutrophils | | | [facility] | | | | | | [facility] | | | | | | [facility] - | | | | | | LABORATORY | | + + + + + + | % | 14.1 (L) | 20.0 - 45.0 % | [facility] | | | Lymphocytes | | | [facility] | | | | | | [facility] | | | | | | [facility] - | | | | | | LABORATORY | | + + + + + + | % Monocytes | 8.7 | 4.0 - 12.0 % | [facility] | | | | | | [facility] | | [facility] | [facility] | | | | | [facility] - | | | | | | LAB[facility]ATORY | | + + + + + + | % | 1.5 | 0.0 - 5.0 % | [facility] | | | Eosinophils | | | [facility] | | | | | | [facility] | | | | | | [facility] - | | | | | | LABORATORY | | + + + + + + | % Basophils | 1.0 | 0.0 - 1.0 % | [facility] | | | | | | [facility] | | | | | | [facility] | | | | | | [facility] - | | | | | | LABORATORY | | + + + + + + | Absolute | 5.20 | 1.80 - 8.50 | [facility] | | | Neutrophils | | K/uL | [facility] | | | | | | [facility] | | | | | | [facility] - | | | | | | LABORATORY | | + + + + + + | Absolute | 1.00 | 0.60 - 3.20 | [facility] | | | Lymphocytes | | K/uL | [facility] | | | | | | [facility] | | | | | | [facility] - | | | | | | LABORATORY | | + + + + + + | Absolute | 0.60 | 0.00 - 1.00 | [facility] | [...] | Absolute | 0.10 | 0.00 - 0.10 | [facility] | | | Basophils | | K/uL | [facility] | [...] [address] | [place] | [phone] | | [facility] | | [address] | | | - LABORATORY | | | | + + + + + | [facility] | [address] | [place] | | | [facility] | | [address] | | | - LABORATORY | | | | + + + + + Comprehensive Metabolic Panel (08/15/2014 9:10 AM PDT) + + + + + + | Component | Value | Ref Range | Performed | Pathologist | | | | | At | Signature | + + + + + + | Na | 141 | 136 - 149 | [facility] | | | | | mmol/L | [facility] | | | | | | [facility] | | | | | [facility] - | | | | | | LABORATORY | | + + + + + + | K | 3.6 | 3.5 - 5.1 | [facility] | | | | | mmol/L | [facility] | | | | | | [facility] | | | | | | [facility] - | | | | | | LABORATORY | | + + + + + + | Cl | 107 | 98 - 109 mmol/L | [facility] [...] + + + + | Glucose | 96 | 70 - 109 mg/dL | [facility] | | | | | | [facility] | | | | | | [facility] | | | | | | C[facility] - | | | | | | LABORATORY | | + + + + + + | BUN | 15 | 7 - 18 mg/dL | [facility] | | | | | | [facility] | | | | | | [facility] | | | | | | C[facility] - | | | | | | LABORATORY | | + + + + + + | Creatinine | 0.79 | 0.60 - 1.30 | [facility] | [...] mL/min/1.73m2 | [facility] | | | TAJIK | RATE,ESTIMATED | | MEDICAL | | | | mL/min/1.13y4Luxz than | | CENTER - | | [...] + + + + | Calcium | 8.6 | 8.3 - 10.5 | [facility] | | | | | mg/dL | [facility] | | | | | | MED[facility] | | | | | | CENTER - | | | | | | LABORATORY | | + + + + + + | Albumin | 3.0 (L) | 3.2 - 5.0 g/dL | [facility] | | | | | | [facility] | | | | | | [facility] | | | | | | CENTER - | | | | | | LABORATORY | | + + + + + + | Bilirubin | 0.4 | 0.1 - 1.5 mg/dL | [facility] | | | Total | | | [facility] | | | | | | [facility] | | | | | | CENTER - | | | | | | LABORATORY | | + + + + + + | Total | 5.6 (L) | 6.0 - 7.8 g/dL | [facility] | | | Protein | | | [facility] | | | | | | [facility] | | | | | | CENTER - | | | | | | LABORATORY | | + + + + + + | AST | 23 | 10 - 42 U/L | [facility] | | | | | | [facility] | | | | | | [facility] | | | | | | C[facility] - | | | | | | LABORATORY | | + + + + + + | ALT | 21 | 6 - 45 U/L | [facility] | | | | | | [facility] | | | | | | [facility] | | | | | | C[facility] - | | | | | | LABORATORY | | + + + + + + | Alkaline | 59 | 40 - 110 U/L | [facility] | | | Phosphatase | | | [facility] | | | | | | [facility] | | | | | | CENTER - | | | | | | LABORATORY | | + + + + + + | Globulin | 2.6 | g/dL | [facility] | | | | | | [facility] | | | | | | [facility] | | | | | | CENTER - | | | | | | LABORATORY | | + + + + + + | Albumin/Mattie | 1.2 | | [facility] | | | bulin Ratio | | | [facility] | | | | | | [facility] | | | | | | CENTER - | | | | | | LABORATORY | | + + + + + + | BUN/Creatin | 19.0 | | [facility] | | | ine Ratio | | | [facility] | | | | | | MEDICAL | | | | | | CENTER - | | | | | | LABORATORY | | + + + + + + + + | Specimen | + + | Blood | + + + + + + + | Performing | Address | City[facility]State[facility] | Phone Number | | Organization | | | | + + + + + | [facility] | [address] | [place] | [phone] | | [facility] | | [address] | | | - LABORATORY | | | | + + + + + | [facility] | [address] | [place] | | | [facility] | | [address] | | | - LABORATORY | | [...] (PARAPLATIN) 190 mg | New Bag | 08/16/19 | 190 mg | 538 | | | in sodium chloride 0.9% 250 mL | | 15 12:15 | | mL/hr | | | chemo infusion 190 mg (Target | | PM PDT | | | | | AUC = 2), Intravenous, Administer | | | | | | | over 30 Minutes, ONCE, Tue | | | | | | | 08/15/14 at 1230, For 1 dose, AUC | | | | | | | 2= 187.4 mg; rounded to 190 per | | | | | | | rounding protocol Dose calculated | | | | | | | per SWOG calculation per | | | | | | | Tabitha request Chemotherapy: This | | | | | | | is a high risk medication., | | | | | | + +---------+ +--------+-------+------+ +---+---+ | | | +---+---+ + +-------+ +-------+---+---+ | diphenhydrAMINE (BENADRYL) | Given | 08/16/19 | 25 mg | | | | injection 25 mg 25 mg, | | 15 10:50 | | | | | Intravenous, ONCE, Thu08/15/14 at | | AM PDT | | | | | 1050, For 1 dose, Administer 30 | | | | | | | minutes prior to PACLitaxel ., | | | | | | + +-------+ +-------+---+---+ +---+---+ | | | +---+---+ + +-------+ +-------+---+---+ | famotidine (PEPCID) injection | Given | 08/16/19 | 20 mg | | | | 20 mg 20 mg, Intravenous, ONCE, | | 15 10:46 | | | | | 08/15/14 at 1050, For 1 dose, | | AM PDT [...] 100 units/mL flush 500 | Given | 08/16/19 | 500 | | | | Units 500 Units (5 mL), | | 15 12:55 | Units | | | | Intracatheter, PRN, Line Care, | | PM PDT | | | | | Starting 08/15/14 at 1034 | | | | | | + +-------+ +-------+---+---+ +---+---+ | | | +---+---+ + +---------+ +-------+--------+---+ | PACLitaxel (TAXOL) 81 mg in | New Bag | 08/16/19 | 81 mg | 263.5 | | | sodium chloride 0.9% 250 mL chemo | | 15 11:12 | | mL/hr | | | infusion 81 mg (rounded from | | AM PDT | | | | | 80.1 mg = 45 mg/m2 | | | | | | | 1.78 m2 Treatment plan recorded | | | | | | | BSA), Intravenous, Administer | | | | | | | over 1 Hours, ONCE, 08/15/14 | | | | | | | at 1115, For 1 dose, | | | | | | | Chemotherapy: This is a high risk | | | | | | | medication. Vesicant. Use | | | | | | | non-DEHP bag and tubing. Use | | | | | | | inline filter not greater than | | | | | | | 0.22 microns. This drug has a | | | | | | | high incidence of infusion | | | | | | | reactions. Patient must be | | | | | | | directly and frequently observed | | | | | | | during drug administration., | | | | | | + +---------+ +-------+--------+---+ +---+---+ | | | +---+---+ + +---------+ +---+--------+---+ | palonosetron (ALOXI) 0.25 mg, | New Bag | 08/16/19 | | 209.3 | | | dexamethasone (DECADRON) 8 mg in | | 15 10:54 | | mL/hr | | | sodium chloride 0.9% 50 mL IVPB | | AM PDT | | | | | Intravenous, Administer over 16 | | | | | | | Minutes, ONCE, 08/15/14 at | | | | | | | 1055, For 1 dose | | | | | | + +---------+ +---+--------+---+ +---+---+ | | | +---+---+ documented in this encounter"
--- OUTSIDE RECORDS SUMMARY | ~2019-05-05 | XMS | Encounter Summary ---
Demographics + + + | Address | [address] | | | [place] [address] | + + + | Home Phone [...] [place] | | | | | [address] | | + + + + + Care Team Providers + +------+ + | Care Bed Laborer Name | Role | Phone | + +------+ + | Davis Ivan MD | PCP | | + +------+ + Encounter Details +--------+ + + + + | Date | Type | Department | Care Team | Description | +--------+ + + + + | 10/18/ | Hospital | [facility] | Offenstein, | Cough | | 2015 | Encounter | MED CTR XRAY [address] | MD Raoul Sahni, | | | | | Shelbi Clark | [place] | | | | | [place] [address] | | | | | | [phone] | | | +--------+ + + + [...] | 2 | 08/22/19 | | | (TESSALROMAN PERLES) | mouth 3 times daily | capsule [...] | Take 15 mLs by mouth | 473 mL | 0 | 10/12/19 | | | HYDROcodone-acetamin | 4 times daily as | | | 15 | 5 | | ophen (HYCET) | needed for Pain or | | | | | | 7.5-325 mg/15 mL | Cough for up to 10 | | | | | | liquidIndications: | days. | | | | | | Squamous cell lung | | | | | | | cancer, unspecified | | | | | | [...] Take 1 tablet by | 60 | 1 | 09/21/19 | | | (ZANTAC) 150 mg | mouth 2 times daily. | tablet | | 15 | 5 | | tablet | | [...] | 2018 | Visit | | [address] | | | | | | [facility] | | | | | | [place] [address] | | | | | | [phone] | | | | | | | | +--------+ + + + + | 06/08/ | Office | Physical Medicine | Rocky Santos, | | | 2019 | Visit | and Rehabilitation | MD Varela [address] | | | | | | [place] | | | | | | [address] | | | | | | | | +--------+ + + + + | 06/16/ | Appointment | Pulmonology | Eveline Jaffe | | | 2019 | | | MD [address] | | | | | | [address] | | | | | | [place] [address] | | | | | | [phone] | | | | | | | | +--------+ + + + + | 06/16/ | Office | Pulmonology | Eveline Jaffe | | | 2019 | Visit | | MD [address] | | | | | | [address] | | | | | | [place] [address] | | | | | | [phone] | | | | | | | | +--------+ + + + + | 08/24/ | Office | Cardiology | Anisha Lopez DO | | | 2019 | Visit | | [address] | | | | | | [place] | | | | | | [address] | | | | | | | | +--------+ + + + + documented as of this encounter Procedures + +--------+ + + + | Procedure Name | Priori | Date/Time | Associated Diagnosis | Comments | | | ty | | | | + +--------+ + + + | FL ESOPHAGRAM | Routin | 10/18/2014 | Cough | Results for this | | COMPLETE | e | 9:42 AM | | procedure are in the | | | | PDT | | results section. | + +--------+ + + + documented in this encounter Results FL Esophagram Complete (10/18/2014 9:42 AM PDT) + + | Specimen | + + | | + + + + + | Narrative | Performed At | + + + | EXAM: FL ESOPHAGRAM COMPLETE dated 10/18/2014 8:42 AM | [facility] | | HISTORY:Evaluate for reflux, cough since upper GI bleed in June | | | COMPARISON: None. FINDINGS:Effervescent crystals in addition to | | | thickened thin barium were administered orally and followed | | | fluoroscopically. Normal course, contour, caliber of the | | | esophagus. There are incomplete primary and secondary peristaltic | | | waves. This does result in some gastroesophageal reflux. There is | | | a prominent hiatal hernia. There is a patent gastroesophageal | | | junction. There is a prominent dysfunctional cricopharyngeal muscle. | | | Just above that level there is a small posterior midline | | | diverticulum. There is no definite mucosal irregularity or | | | stricturing. The diverticulum readily clears of contrast on this | | | exam. There are no occasional of laryngeal penetration or tracheal | | | aspiration. 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 Gastroesophageal reflux. | | | Dysfunctional esophageal motility. Dictated and Signed by: Ronak | | | bAilio Heath MD Electronically signed: 10/18/2014 12:48 PM | | + + + + + | Procedure Note | + + | Fabián, Rad Results In - 10/18/2014 12:51 PM PDT EXAM: FL ESOPHAGRAM COMPLETE dated | | 10/18/2014 8:42 AMHISTORY:Evaluate for reflux, cough since upper GI bleed in | | JuneCOMPARISON: None.FINDINGS:Effervescent crystals in addition to thickened thin | | barium wereadministered orally and followed fluoroscopically.Normal course, contour, | | caliber of the esophagus. There are incomplete primaryand secondary peristaltic waves. | | This does result in some gastroesophagealreflux. There is a prominent hiatal hernia. | | There is a patent gastroesophagealjunction. There is a prominent dysfunctional | | cricopharyngeal muscle. Justabove that level there is a small posterior midline | | diverticulum. There is nodefinite mucosal irregularity or stricturing. 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 Gastroesophageal reflux.Dysfunctional esophageal | | motility.Dictated and Signed by: Ronak Heath MD Electronically signed: 10/18/2014 | | 12:48 PM | |definite mucosal irregularity or stricturing. The diverticulum readily clears | |of contrast on this exam. | | | |There are no occasional of laryngeal penetration or tracheal aspiration. 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 | | | |Gastroesophageal reflux. | | | |Dysfunctional esophageal motility. | | | |Dictated and Signed by: Ronak Heath MD | | Electronically signed: 10/18/2014 12:48 PM | + + + +---------+ + + | Performing | Address | City/State/Zipcode | Phone Number | | Organization | | | | + +---------+ + + | [facility] | | | | + +---------+ + + documented in this encounter Visit Diagnoses + + | Diagnosis | + + | Cough | + + documented in this encounter"
--- OUTSIDE RECORDS SUMMARY | ~2019-05-05 | XMS | Encounter Summary ---
Demographics + + + | Address | [address] | | | [place] [address] | + + + | Home Phone [...] [place] | | | | | [address] | | + + + + + Care Team Providers + +------+ + | Care Human Resources Recruiter Name | Role | Phone | + [...] + + | Closed | Specialty | Orthopedic | Diagnoses | | Randy, | | | Services | Surgery | Thumb | Claudia, | Giuliano Mares MD | | | Required | | dislocation, | Ayana B, | [address] | | | | | unspecified | [address] | [place], | | | | | laterality, | [address] | [place] [address] | | | | | sequela | [place], | Phone: | | | | | | [place] [address] | [phone] | | | | | | | Fax: | | | | | | | [phone] | +--------+ + + + + + Reason for Visit +--------+ + | Reason | Comments | +--------+ + | COPD | f/u | +--------+ + Encounter Details +--------+---------+ + + + | Date | Type | Department | Care Team | Description | +--------+---------+ + + + | 12/05/ | Office | [facility] | Offenstein, | COPD (chronic | | 2014 | Visit | PULMONARY [address] | Ayana Looney MD | obstructive | | | | [place], | | pulmonary disease) | | | | [place] [address] | | (Primary Dx); | | | | [phone] | | Recurrent squamous | | | | | | cell carcinoma of | | | | | | lung, right (HCC); | | | | | | MARCE (obstructive | | | | | | sleep apnea); Thumb | | | | | | dislocation, | | | | | | unspecified | | | | | | laterality, sequela | +--------+---------+ + + + Social History [...] + + + | Blood Pressure | 126/70 | 12/05/2014 2:39 PM | | | | | PDT | | + + + + + | Pulse | 81 | 12/05/2014 2:39 PM | | | | | PDT | | + + + + + | Temperature | - | - | | + + + + + | Respiratory Rate | 14 | 12/05/2014 2:39 PM | | | | | PDT | | + + + + + | Oxygen Saturation | 92% | 12/05/2014 2:39 PM | | | | | PDT | | + + + + + | Inhaled Oxygen | - | - | | | Concentration | | | | + + + + + | Weight | 67.5 kg (148 lb 12.8 | 12/05/2014 2:39 PM | | | | oz) | PDT | | + + + + + | Height | 157.5 cm (5' 2.01") | 12/05/2014 2:39 PM | | | | | PDT | | + + + + + | Body Mass Index | 27.21 | 12/05/2014 2:39 PM | | | | | PDT | | + + + + + documented in this encounter Patient Instructions Patient Instructions Ayana Taylor MD - 12/05/2014 3:07 PM PDTI want you to get u p and walk every hour in the house, and also work on doing your physical therapy exercises. I will put in a referral to orthopedic surgery. Stay on both the Symbicort and Tudorza. documented in this encounter Progress Notes Ayana Taylor MD - 12/05/2014 2:41 PM PDTFormatting of this note might be differe nt from the original. Pulmonary Follow Up HPI Thea Carmona is a 69 y.o. female patient of Davis Ivan MD here today for follow up of COPD. At their last visit, we had switched her from Spiriva to Tudorza. Since their last visit kierra mares feels like she has been doing okay. She has not had any acute illnesses. She notes she has had quite a bit of back pain and also in her right upper quadrant, right lower chest. She is having a colonoscopy on 12/[address] Winston. She saw Dr. Park in October, and he has ordered a follow up PET scan for her to have done. She is currently on a regimen of Symbicort twice daily and Tudorza twice daily. She does no t know if the Tudorza is helping her. She was initially not inhaling the powder. She notes h er cough did get better with switching to the Tudorza from the Spiriva. She is not typicall y using her rescue inhaler, but does carry it with her. She is using her nebulizer, albutero l, 2 times a day. She returns today for routine follow up. She feels like she has been more dyspneic lately, like she does not have as much air as she has had. Her thinks this is because of the heat. She notes at times her breathing s tops her, and sometimes her arthritis stops her. Currently she is able to walk a couple hund red yards at her own pace on level ground. She is not exercising regularly. She has not been coughing much recently, and this has resolved for not entirely clear reaso ns. Likely it is because of a combination of stopping the Spiriva and starting the Tudorza. She has been evaluated for nocturnal oxygen and does not need to use it. She does have symptoms of heartburn or reflux, but only occasionally, and it is not persist ent. She takes 1 omeprazole and one ranitidine. Past Medical History Past Medical History Diagnosis Date COPD (chronic obstructive pulmonary disease) ([facility]) on albuterol Spondylolisthesis of cervical region Spinal stenosis has tried cortisone injections Osteoporosis Depression Pneumonia 2008 hospitalized 5 days Rheumatoid arthritis(714.0) ([facility]) [facility] Hyperlipidemia on simvastatin Hypertension on clonidine and lisinopril Hypothyroidism GERD (gastroesophageal reflux disease) Stroke ([facility]) 2006 Stroke ([facility]) 2008 Squamous cell carcinoma of lung ([facility]) 07/2013 right lower lobe Sputum culture positive for Scopulariopsis species Recurrent squamous cell carcinoma of lung ([facility]) 07/11/[address] and [...] 07/11/2014 EBUS with right hilar LN biopsy, [facility] Dr. 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 omeprazole (PRILOSEC) 20 mg capsule Take 40 mg by mouth every morning (before breakfast ). predniSONE (DELTASONE) 5 mg tablet Take 10 mg by mouth Daily. ranitidine (ZANTAC) 150 mg tablet Take 1 tablet by mouth 2 times daily. 60 tablet 3 Respiratory Therapy Supplies [facility] Cloud 66 S9 auto CPAP 5-9 cm H2O. Heater [...] facility-administered encounter medications on file as of 12/05/2014. Review of Systems: General: []Weight loss/gain (over 10 lbs) [x]Fever/chills/sweats [x]Night sweats EENT: []Hearing loss []Vision loss/change [x]Sinus congestion/nasal drainage []Nosebleeds [ ]Hoarseness Cardiac: []Chest pain []Palpitations/heart racing []Swelling of legs/ankles []Waking up at night s hort of breath [x]Difficulty sleeping flat Gastrointestinal: []Nausea/vomiting []Difficulty swallowing [x]Heartburn/acid reflux [x]Loss of appetite [x] Abdominal pain Urologic: []Blood in urine []Frequent urination at night []Burning/painful urination []Difficulty wit h urination She notes her left thumb has dislocated Objective Pulse 81 | Ht 1.575 m (5' 2.01") | Wt 67.495 kg (148 lb 12.8 oz) | BMI 27.21 kg/m2 | SpO2 9 2% RA General Appearance: Alert, cooperative, no distress, [...] nodes: Cervical and supraclavicular nodes normal Data: Lokesh Park's notes were reviewed in clinic today. Immunization History Administered Date(s) Administered INFLUENZA, TRIVALENT PRESERVATIVE FREE (PED/ADOL/ADULT) 03/22/2013, 02/15/2014 PNEUMOCOCCAL CONJUGATE 13-VALENT (PCV13) 07/14/2014 PNEUMOCOCCAL POLYSACCHARIDE 23-VALENT (PPSV23) 03/01/2011 Assessment ICD-9-CM 1. COPD (chronic obstructive pulmonary disease) 496 Symptoms are improved on Symbicort and Tudorza. She had a prolonged cough of unclear etiology. It is possible the Spiriva contribut ed to it, and changing to Tudorza may have helped. She did not have radiographic signs of a radiation induced injury, but it occurred at the time of her XRT and she was at high risk fo r this. She had significant reflux on UGI as well, though there was not a lot of change in h er treatment of this leading to resolution of her cough. 2. Recurrent squamous cell carcinoma of lung, right (HCC) 162.9 PET scan pending.CT scan do ne at [facility] showed area of enlargement previously seen and which had been biopsied an d for which she has undergone treatment. She has high likelihood of ongoing disease recurren ce. 3. MARCE (obstructive sleep apnea) 327.23 Mild disease. Has declined treatment. She trialed C PAP and then returned it. 4. Thumb dislocation, unspecified laterality, sequela 905.6 Previous ligament repair perfor med, but has clearly failed, and she has the joint protruding outwards. She is a high risk s urgical candidate, but this has become increasingly uncomfortable for her, so we will refer her to orthopedics to be seen and evaluated for what her options may be, such as surgery und er local block. * [facility] Referral Plan 1.Continue on Symbicort and Tudorza for now. 2.PET scan ordered, and we will review results as well. 3.Referred to orthopedic surgery for evaluation of her thumb. She was advised to call if new pulmonary symptoms were to develop. Return to clinic in 3 months, or sooner with concerns. CC: Davis Ivan MD Portions of this report were transcribed using voice recognition software. Every effort wa s made to ensure accuracy; however, inadvertent computerized environmental services floor tech errors may be pre sent. documented in t his encounter Plan of Treatment +--------+ + + + + | Date | Type | Specialty | Care Team | Description | +--------+ + + + + | 05/30/ | Office | Rheumatology | Santosh Sumner, | | | 2018 | Visit | | [address] | | | | | | [facility] | | | | | | [place] [address] | | | | | | [phone] | | | | | | | | +--------+ + + + + | 06/08/ | Office | Physical Medicine | Rocky Santos, | | | 2019 | Visit | and Rehabilitation | MD Nichole [address] | | | | | | [place] | | | | | | [address] | | | | | | | | +--------+ + + + + | 06/16/ | Appointment | Pulmonology | Eveline Jaffe | | | 2019 | | | MD [address] | | | | | | [address] [place] | | | | | | [place] [address] | | | | | | [phone] | | | | | | | | +--------+ + + + + | 06/16/ | Office | Pulmonology | Eveline Jaffe | | | 2019 | Visit | | MD [address] | | | | | | [address] [place] | | | | | | [place] [address] | | | | | | [phone] | | | | | | | | +--------+ + + + + | 08/24/ | Office | Cardiology | Anisha Lopez DO | | | 2019 | Visit | | [address] | | | | | | [place] | | | | | | [address] | | | | | | | | +--------+ + + + + + + +--------+ + + | Name | Type | Priori | Associated Diagnoses | Order Schedule | | | | ty | | | + + +--------+ + + | * [facility]DOMO | Outpatient | Routin | Thumb dislocation, | Ordered: 12/05/2014 | | Orthopedic Surgery - | Referral | e | unspecified | | | AMB Referral | | | laterality, sequela | | + + +--------+ + + documented as of this encounter Visit Diagnoses + + | Diagnosis | + + | COPD (chronic obstructive pulmonary disease) - Primary Chronic airway obstruction, | | not elsewhere classified | + + | Recurrent squamous cell carcinoma of lung, right (HCC) | + + | MARCE (obstructive sleep apnea) Obstructive sleep apnea (adult) (pediatric) | + + | Thumb dislocation, unspecified laterality, sequela | + + documented in this encounter
--- OUTSIDE RECORDS SUMMARY | ~2019-05-05 | XMS | Encounter Summary ---
Demographics + + + | Address | [address] | | | [place] [address] | + + + | Home Phone | | + + + | Preferred Language | Unknown | + + + | Marital Status | | + + + | Adventist Affiliation | Unknown | + + + | Race | Unknown | + + + | Ethnic Group | Unknown | + + + Author + + + | Author | [facility] | | | and [place] | + + + | Organization | [facility] | | [...] [place] | | | | | [address] | | + + + + + Care Team Providers + +------+ + | Care Generation Manager Name | Role | Phone | [...] | | cell | Ayana B, | [place] | | | | | carcinoma | MD [address] | [place] | | | | | lung (HCC) | [address] | [address] | | | | | Procedures | [place], | Phone: | | | | | PET CT Skull | [place] [address] | [phone] | | | | | Base To Mid | | Fax: | | | | | Thigh | | [phone] | +--------+--------+ + + + + Reason for Visit + + + | Reason | Comments | + + + | Follow-up | | + + + Encounter Details +--------+---------+ + + + | Date | Type | Department | Care Team | Description | +--------+---------+ + + + | 08/02/ | [facility] [place], | Squamous cell | | 2013 | Visit | PULMONARY [address] | Ayana Looney MD | carcinoma lung (HCC) | | | | [place], | | (Primary Dx); COPD | | | | [place] [address] | | (chronic obstructive | | | | [phone] | | pulmonary disease); | | | | | | Epistaxis; MARCE | | | | | | [...] + | Blood Pressure | 106/58 | 08/02/2013 10:28 AM | | | | | PST | | + + + + + | Pulse | 70 | 08/02/2013 10:28 AM | | | | | PST | | + + + + + | Temperature | - | - | | + + + + + | Respiratory Rate | - | - | | + + + + + | Oxygen Saturation | 97% | 08/02/2013 10:28 AM | | | | | PST | | + + + + + | Inhaled Oxygen | - | - | | | Concentration | | | | + + + + + | Weight | 72.8 kg (160 lb 8 | 08/02/2013 10:28 AM | | | | oz) | PST | | + + + + + | Height | 157.5 cm (5' 2") | 08/02/2013 10:28 AM | | | | | PST | | + + + + + | Body Mass Index | 29.36 | 08/02/2013 10:28 AM | | | | | PST | | + + + + + documented in this encounter Patient Instructions Patient Instructions Ayana Taylor MD - 08/02/2013 11:13 AM PSTWe will schedule PE T scan, and then see you back to review results. Hold aspirin and Plavix until nosebleeding dealt with. documented in this encounter Progress Notes Ayana Taylor MD - 08/02/2013 10:53 AM PSTFormatting of this note might be differe nt from the original. Pulmonary Follow Up MD [place] [facility] [address] [place], [address] [facility] Teha Carmona is a 68 y.o. female patient of Davis Ivan here today for follo w up of lung nodule. After lengthy discussion, we decided to refer her to [place] for biopsy. Biopsy was compli cated by small pneumothorax that apparently did not require intervention and was otherwise u ncomplicated. Biopsy results showed squamous cell carcinoma. We reviewed her imaging from December until nu. This has increased somewhat in size from those [address] scan showed 2 tiny nodules, one on the right and one on the left that were new, of unclear significance. Sputum cultures have grown a fungus that is aggressive and found in immunosuppressed patien ts. Significance of this is now very unclear. Sleep study preliminary results showed mild obstructive sleep apnea, with an overall AHI of 11.6, but much more severe in REM sleep at 73.7. Oxygen desaturation was minimal, and she s pent only 4 minutes less than 88%. No limb movements are noted. Final report is pending, and only raw data is currently available. Patient arrives with a nosebleed, that has been going on for 4 hours. At her visit, I thomas d to urgent care, and ENT. Urgent care was unable to manage this and our ENT physician was i n the OR all day. Patient was referred to ER after proper pressure did not resolve the bleed ing. Past Medical History Past Medical History Diagnosis Date COPD (chronic obstructive pulmonary disease) ([facility]) on albuterol Spondylolisthesis of cervical region Spinal stenosis Osteoporosis Depression Pneumonia 2009 hospitalized 5 days Rheumatoid arthritis(714.0) ([facility]) on prednisone and methotrexate, Dr. 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 Social History Main Topics Smoking status: Former Smoker -- 1.0 packs/day for 50 years Types: Cigarettes Quit date: 08/21/2012 Smokeless tobacco: None Comment: using e cigarettes Alcohol Use: No Drug Use: No Comment: marijuana in the remote past Sexually Active: None Other Topics Concern None Social History Narrative [place] With: aloneG[place] up: [place] previously lived in: [place]posure t o toxic chemicals: noExposure to asbestos: noExposure to tuberculosis: no Has had a PPD or Q uantiferon before: noHas pets at home: cat and a dog Has ever owned birds: yes, 5 years ago Other animal exposures: noHobbies: used to jaja, crossword puzzles, walking her dog Allergies: No Known Allergies Medications: Outpatient Encounter Prescriptions as of 08/02/2013 Medication Sig Dispense Refill albuterol 2.5 mg/3 [...] by mouth 2 times daily. Objective BP 106/58 | Pulse 70 | Ht 1.575 m (5' 2") | Wt 72.802 kg (160 lb 8 oz) | BMI 29.35 kg/m2 | SpO2 97% General Appearance: Alert, cooperative, no distress, appears stated age Data: Pathology from biopsy shows squamous cell carcinoma, moderately differentiated. Immunization History Administered Date(s) Administered INFLUENZA, PRESERVATIVE FREE IM 03/22/2013 Pneumococcal (Adult) 03/01/2011 Assessment 1. Squamous cell carcinoma lung (HCC) - Repeat PET scan ordered. I will see her back after to review. Then we will discuss management. I have concerns about her surgical candidacy giv en co morbidities and functional status, but if she does not have any evidence of disease sp read (nodules are in question), then should be considered. 2. COPD (chronic obstructive pulmonary disease)- Will need PFTs, but given recent pneumotho rax will defer until after PET scan. 3. Epistaxis - Sent to ER as she has been bleeding fairly copiously for 4 hours. 4. MARCE (obstructive sleep apnea)- Will likely need in lab titration, but I will await final report. Plan 1.PET scan ordered. 2.Will need PFTs, but will defer given recent pneumothorax. 3.To ER for consideration of packing of epistaxis. 4. Plan for in lab titration of CPAP. She was advised to call if new pulmonary symptoms were to develop. 20 minutes were spent with Ms. Carmona and her with greater than 50% spent in couns eling and coordination of care regarding her nodule. Return to clinic 3 days after PET scan, or sooner with concerns. CC: Davis Ivan Portions of this report were transcribed using voice recognition software. Every effort wa s made to ensure accuracy; however, inadvertent computerized non licensed nuclear equipment operator errors may be pre sent. documented in t his encounter Plan of Treatment +--------+ + + + + | Date | Type | Specialty | Care Team | Description | +--------+ + + + + | 05/30/ | Office | Rheumatology | Santosh Sumner, | | | 2018 | Visit | | [place] [address] | | | | | | [address] [facility] | | | | | | [place] [address] | | | | | | [phone] | | | | | | | | +--------+ + + + + | 06/08/ | Office | Physical Medicine | Rocky Santos, | | | 2019 | Visit | and Rehabilitation | MD Nichole Landis | | | | | | [place] | | | | | | [address] | | | | | | | | +--------+ + + + + | 06/16/ | Appointment | Pulmonology | Eveline Jaffe | | 2019 | | | MD Nichole Carter | | | | | | [address] | | | | | | [place] [address] | | | | | | [phone] | | | | | | | | +--------+ + + + + | 06/16/ | Office | Pulmonology | Eveline Jaffe | | | 2019 | Visit | | MD Raul [address] | | | | | | [address] [place] | | | | | | [place] [address] | | | | | | [phone] | | | | | | | | +--------+ + + + + | 08/24/ | Office | Cardiology | Anisha Lopez DO | | | 2019 | Visit | | [address] | | | | | | [place] | | | | | | [address] | | | | | | | | +--------+ + + + + documented as of this encounter Results PET CT Skull Base To Mid Thigh (08/11/2013 2:55 PM PDT) + + | Specimen | + + | | + + + + -----+ | Narrative | Performed A t | + + -----+ | PET CT SKULL | MISCELANI OUS | | BASE TO MID THIGH [...] x 2.1 cm (CT image 56, PET ). Maximum | | | SUV is 6.26, [...] cm | | (CT image 56, PET [id number]). Maximum SUV is 6.26, consistent with the [...] + | MISCELLANEOUS LAB | | | [phone] | + +---------+ + + | MISCELANIOUS LAB | | | [phone] | + +---------+ + + documented in this encounter Visit Diagnoses + + | Diagnosis | + + | Squamous cell carcinoma lung (HCC) - Primary Malignant neoplasm of bronchus and lung, | | unspecified site | + + | COPD (chronic obstructive pulmonary disease) Chronic airway obstruction, not | | elsewhere classified | + + | Epistaxis | + + | MARCE (obstructive sleep apnea) Obstructive sleep apnea (adult) (pediatric) | + + documented in this encounter
--- OUTSIDE RECORDS SUMMARY | ~2019-05-05 | XMS | Encounter Summary ---
Demographics + + + | Address | [address] | | | [place] [address] | + + + | Home Phone | | + + + | Preferred Language | Unknown | + + + | Marital Status | | + + + | Tenriism Affiliation | Unknown | + + + | Race | Unknown | + + + | Ethnic Group | Unknown | + + + Author + + + | Author | [facility] | | | and [place] | + + + | Organization | [facility] | | [...] [place] | | | | | [address] | | + + + + + Care Team Providers + +------+ + | Care Refinery Operator Crude Unit Name | Role | Phone | + [...] Description | +--------+--------+ + + + | 06/30/ | Refill | [facility] | Claudia, | Medication Refill | | 2017 | | CARDIOLOGY [address] | Ayana Looney MD | | | | | [place], | | | | | | [place] [address] | | | | | | [phone] | | | +--------+--------+ + + + [...] | | | | | [place] [address] | | | | | | [phone] | | | | | | | | +--------+ + + + + | 06/08/ | Office | Physical Medicine | Rocky Santos, | | | 2019 | Visit | and Rehabilitation | MD Nichole Landis | | | | | | [place] | | | | | | [address] | | | | | | | | +--------+ + + + + | 06/16/ | Appointment | Pulmonology | Eveline Jaffe | | 2019 | | | MD Nichole [address] | | | | | | [address] [place] | | | | | | [place] [address] | | | | | | [phone] | | | | | | | | +--------+ + + + + | 06/16/ | Office | Pulmonology | Eveline Jaffe | | | 2019 | Visit | | MD Raul [address] | | | | | | [address] [place] | | | | | | [place] [address] | | | | | | [phone] | | | | | | | | +--------+ + + + + | 08/24/ | Office | Cardiology | Anisha Lopez DO | | | 2019 | Visit | | [address] | | | | | | [place] | | | | | | [address] | | | | | | | | +--------+ + + + + documented as of this encounter Visit Diagnoses Not on filedocumented in this encounter"
--- OUTSIDE RECORDS SUMMARY | ~2019-05-05 | XMS | Encounter Summary ---
Demographics + + + | Address | [address] | | | [place] [address] | + + + | Home Phone | | + + + | Preferred Language | Unknown | + + + | Marital Status | | + + + | Faith Affiliation | Unknown | + + + | Race | Unknown | + + + | Ethnic Group | Unknown | + + + Author + + + | Author | [facility] | | | and [place] | + + + | Organization | [facility] | | [...] [place] | | | | | [address] | | + + + + + Care Team Providers + +------+ + | Care Mri Supervisor Name | Role | Phone | [...] | | | | | | | [place] REPAIR | | | | | | [...] + + + + | 10/27/ | Anesthesia | SURESH ABBOTT | Chucho Sarita | | | 2018 | Event | [facility] | Festus ALFARO MD [address] | | | | | [address] | [address] [place] | | | | | [place], [place] | [place] [address] | | | | | [address] | [phone] | | | | | [phone] | | | +--------+ + + + + Anesthesia Record + + + + + | Procedure Name | Responsible | Anesthesia Start | Anesthesia Stop Time | | | Anesthesiologist | Time | | + + + + + | Right 1st [facility] | Sarita Rankin | 10/27/17 1018 | 10/27/17 1122 | | Arthroplasty (Right | MD ANGELINA | | | | Hand) | | | | + + + + + +----+---+ + + | Da | T | Event | Comment | | te | i | | | | | m | | | | | e | | | +----+---+ + + | 05 | 1 | | | | /2 | 0 | | | | 9/ | 0 | | | | 20 | 8 | | | | 18 | | | | +----+---+ + + | | 1 | An Checkout | Pre-use anesthesia machine/equipment checkout. | | | 0 | | | | | 1 | | | | | 1 | | | +----+---+ + + | | 1 | An Start | Reassessment prior to anesthesia induction/procedure. | | | 0 | | | | | 1 | | | | | 8 | | | +----+---+ + + | | 1 | Antibiotic | | | | 0 | Given | | | | 1 | | | | | 9 | | | +----+---+ + + | | 1 | An Start | | | | 0 | Data | | | | 2 | | | | | 0 | | | +----+---+ + + | | 1 | Preoxygenat | | | | 0 | ed | | | | 2 | | | | | 1 | | | +----+---+ + + | | 1 | An | | | | 0 | Induction | | | | 2 | | | | | 2 | | | +----+---+ + + | | 1 | An | | | | 0 | Intubation | | | | 2 | | | | | 3 | | | +----+---+ + + | | 1 | AN Bite | | | | 0 | Block | | | | 2 | | | | | 4 | | | +----+---+ + + | | 1 | Kilgore | | | | 0 | 43-degrees | | | | 3 | | | | | 0 | | | +----+---+ + + | | 1 | Pre-Procedu | | | | 0 | ral Timeout | | | | 3 | Completed | | | | 1 | | | +----+---+ + + | | 1 | First | | | | 0 | Inc/Proc St | | | | 3 | | | | | 2 | | | +----+---+ + + | | 1 | Kilgore off | | | | 1 | | | | | 1 | | | | | 8 | | | +----+---+ + + | | 1 | AN No | TOF 4/4 with sustained tetanus. | | | 1 | Residual | | | | 1 | NMB | | | | 8 | | | +----+---+ + + | | 1 | an stop | | | | 1 | data | | | | 1 | | | | | 8 | | | +----+---+ + + | | 1 | An Stop | Patient handed off to recovery nurse. | | | 2 | | | | | 2 | | | +----+---+ + + +------+ | Meds | +------+ + + + | Name | Total | + + + | lidocaine 1% | 50 mg | + + + | propofol (DIPRIVAN) injection | 120 mg | | (bolus) (20 mL) | | + + + | propofol | 499.8 mg | + + + | dexmedetomidine (Bolus) | 30 mcg | + + + | dexamethasone (PF) injection 10 | 10 mg | | mg/mL | | + + + | ceFAZolin (ANCEF, KEFZOL) 100 | 1 g | | mg/mL IV syringe 1 g | | + + + | lactated ringers [...] | 07/28/14; 1621; Left:; chest; | 07/28/14 1621 by | 08/24/18 1342 by | | only - | 08/24/18 (Completed/Removed by | Primitivo Dubose RN | User Epic | | | Utility); 1342 (Completed/Removed | | | | Incisi | by Utility) | | | | on | | | | +--------+ + + + | Implan | 07/28/14; 1624; other (see | 07/28/14 1624 by | 09/04/18 1448 by | | [...] | | +--------+ + + + | Periph | 10/27/17; 0933; Left; Hand; | 10/27/17 0933 by | 10/27/17 1400 by | | eral | [id number] catheter system; | Yenifer Shelton RN | Harriet Ellis RN | | IV | 20 gauge; distraction, | | | | | intradermal injection; no longer | | | | | indicated, removed per | | | | | policy/procedure, catheter/device | | | | | intact; short term use; | | | | | 10/27/17; 1400 | | | +--------+ + + + | Airway | Placement Date: 10/27/17; | 10/27/17 1031 by | 10/27/17 1123 by | | | Placement Time: 1031 (created via | Sarita Rankin | Braden Duque RN | | | procedure documentation); Mask | MD ANGELINA | | | | Ventilation: EZ; Attempts: 1; | | | | | Airway Type: laryngeal mask; | | | | | Size: 3; Trauma: none; Placement | | | | | Check: exhaled CO2 detection | | | | | device, bilateral chest rise, | | | | | breath sounds equal bilaterally; | | | | | Removal: per protocol, removed by | | | | | RN; Removal Date: 10/27/17; | | | | | Removal Time: 1123 | | | +--------+ + + + | Read | 10/27/17; 1035; Right; hand; | 10/27/17 1035 by | 10/27/17 1405 by | | only - | healing within expectations; | Nathalie Savage RN | Harriet Ellis RN | | | 10/27/17; 1405 | | | | Incisi | | | | | on | | [...] | 2018 | Visit | | [address] | | | | | | [facility] | | | | | | [place] [address] | | | | | | [phone] | | | | | | | | +--------+ + + + + | 06/08/ | Office | Physical Medicine | Rocky Santos, | | | 2019 | Visit | and Rehabilitation | MD Nichole [address] | | | | | | [place] | | | | | | [address] | | | | | | | | +--------+ + + + + | 06/16/ | Appointment | Pulmonology | Eveline Jaffe | | 2019 | | | MD Nichole Carter | | | | | | [address] [place] | | | | | | [place] [address] | | | | | | [phone] | | | | | | | | +--------+ + + + + | 06/16/ | Office | Pulmonology | Eveline Jaffe | | | 2019 | Visit | | MD Nichole Carter | | | | | | [address] [place] | | | | | | [place] [address] | | | | | | [phone] | | | | | | | | +--------+ + + + + | 08/24/ | Office | Cardiology | Anisha Lopez DO | | | 2020 | Visit | | [address] | | | | | | [place] | | | | | | [address] | | | | | | | [...] for this | | | e | 10:30 AM | | procedure are in the | | | | PDT | | results section. | + +--------+ + + + documented in this encounter Results Anesthesia Airway Note (10/27/2017 10:30 AM PDT) + + + | Narrative | Performed At | + + + | Sarita Rankin II, MD 10/27/2017 10:31 Anesthesia Airway | | | Placement Preprocedure check: patient identified, oxygen, airway | | | assessed, patient reassessment prior to induction, airway equipment | | | checked and suction Rapid Sequence Induction: no Mask ventilation: | | | easy Attempts: 1 Airway type: laryngeal mask Size: 3 Cuffed: | | | cuffed Route, reference point: center of mouth Tube secured with: | | | adhesive tape Trauma: none Tube placement verification: bilateral | | | chest rise, equal bilateral breath sounds and carbon dioxide | | | detection Performing provider: SARITA RANKIN II | | | Electronically Signed by: Sarita Rankin II, MD | | | ESig date/time: 10/27/2017 10:30 | | | | | + + + + + | Procedure Note | + + | Sarita Rankin II, MD - 10/27/2017 10:30 AM PDT Anesthesia Airway | | PlacementPreprocedure check: [...] RANKIN IIElectronically | | Signed by: Sarita Rnakin II, MD ESig date/time: 10/27/2017 | | [...] 10/27/2017 10:30 | | | + + documented in this encounter Visit Diagnoses Not on filedocumented in this encounter Administered Medications + +--------+ +------+------+------+ | Medication Order | MAR | Action | Dose | Rate | Site | | | Action | Date | | | | + +--------+ +------+------+------+ | ceFAZolin (ANCEF, KEFZOL) 100 | Given | 10/28/19 | 1 g | | | | mg/mL IV syringe 1 g 1 g, | | 18 10:19 | | | | | Intravenous, Administer over 30 | | AM PDT | | | | | Minutes, Prior to Incision, | | | | | | | Starting Thu10/27/17 at 0343, For | | | | | | | 1 dose, administer within 1 hour | | | | | | | of incision, Pre-op, | | | | | | | Indications: Surgical Prophylaxis | | | | | | + +--------+ +------+------+------+ +---+---+ | | | +---+---+ + +-------+ +-------+---+---+ | dexamethasone (PF) 10 mg/mL | Given | 10/28/19 | 10 mg | | | | injection Intravenous, PRN, | | 18 10:18 | | | | | Starting 10/27/17 at 1018, | | AM PDT | | | | | Anesthesia Intra-op | | | | | | + +-------+ +-------+---+---+ +---+---+ | | | +---+---+ + +-------+ +--------+---+---+ | dexmedetomidine (PRECEDEX) in | Given | 10/28/19 | 30 mcg | | | | sodium chloride bolus infusion | | 18 10:18 | | | | | Intravenous, PRN, Starting Tue | | AM PDT | | | | | 10/27/17 at 1018, Anesthesia | | | | | | [...] | | | | + +---------+ +---+---+---+ +---+---+ | | | +---+---+ + +-------+ +-------+---+---+ | lidocaine (PF) 1% injection | Given | 10/28/19 | 50 mg | | | | Intravenous, PRN, Starting Thu | | 18 10:18 | | | | | 10/27/17 at 1018, Anesthesia | | AM PDT | | | | | Intra-op | | | | | | + +-------+ +-------+---+---+ +---+---+ | | | +---+---+ + +-------+ +-------+---+---+ | propofol (DIPRIVAN) injection | Given | 10/28/19 | 40 mg | | | | Intravenous, PRN, Starting Tue | | 18 10:22 | | | | | 10/27/17 at 1018, Anesthesia | | AM PDT | | | | | Intra-op | | | | | | + +-------+ +-------+---+---+ +-------+ +-------+---+---+ | Given | 10/28/19 | 20 mg | | | | | 18 10:21 | | | | | | AM PDT | | | | +-------+ +-------+---+---+ | Given | 10/28/19 | 20 mg | | | | | 18 10:20 | | | | | | AM PDT | | | | +-------+ +-------+---+---+ +---+---+ | | | +---+---+ + +---------+ + +-------+---+ | propofol (DIPRIVAN) injection | New Bag | 10/28/19 | 200 | 71.4 | | | Intravenous, CONTINUOUS PRN, | | 18 10:18 | mcg/kg/m | mL/hr | | | Starting 10/27/17 at 1018, | | AM PDT | in | | | | Anesthesia Intra-op | | | | | | + +---------+ + +-------+---+ +---+---+ | | | +---+---+ documented in this encounter"
--- OUTSIDE RECORDS SUMMARY | ~2019-05-05 | XMS | Encounter Summary ---
Demographics + + + | Address | [address] | | | [place] [address] | + + + | Home Phone | | + + + | Preferred Language | Unknown | + + + | Marital Status | | + + + | Episcopal Affiliation | Unknown | + + + | Race | Unknown | + + + | Ethnic Group | Unknown | + + + Author + + + | Author | [facility] | | | and [place] | + + + | Organization | [facility] | | [...] [place] | | | | | [address] | | + + + + + Care Team Providers + +------+ + | Care Product Demonstrator Name | Role | Phone | + +------+ + | Caitlin Chino MD | PCP | | + +------+ + Encounter Details +--------+ + + + + | Date | Type | Department | Care Team | Description | +--------+ + + + + | 03/16/ | Hospital | [facility] | Soilacurtis Eveline | Chronic obstructive | | 2018 | Encounter | MED CTR PULMONARY | MD Raul [address] | pulmonary disease, | | | | FUNCTION [address] | [address] [place] | unspecified COPD | | | | [place], | [place] [address] | type (HCC) | | | | [place] [address] | [phone] | | | | | [phone] | | | +--------+ + + + [...] this encounter Last Filed Vital Signs + +---------+ + + | Vital Sign | Reading | Time Taken | Comments | + +---------+ + + | Blood Pressure | - | - | | + +---------+ + + | Pulse | 90 | 03/16/2019 4:01 PM | | | | | PDT | | + +---------+ + + | Temperature | - | - | | + +---------+ + + | Respiratory Rate | 16 | 03/16/2019 4:01 PM | | | | | PDT | | + +---------+ + + | Oxygen Saturation | - | - | | + +---------+ + + | Inhaled Oxygen | - | - | | | Concentration | | | | + +---------+ + + | Weight | - | - | | + +---------+ + + | Height | - | - | | + +---------+ + + | Body Mass Index | - | - | | + +---------+ + + documented in this encounter Functional [...] Daily. | vial | | 19 | | | mL nebulizer | | | [...] | | | | type ([facility]) | | | | | [...] | | | | type ([facility]) | | | | | [...] | | | | | | [place] [facility] | | | | | | [place] [address] | | | | | | [phone] | | | | | | | | +--------+ + + + + | 06/08/ | Office | Physical Medicine | Rocky Santos, | | | 2019 | Visit | and Rehabilitation | [address] | | | | | | [place] | | | | | | [address] | | | | | | | | +--------+ + + + + | 06/16/ | Appointment | Pulmonology | Eveline Jaffe | | | 2019 | | | MD [address] | | | | | | [address] [place] | | | | | | [place] [address] | | | | | | [phone] | | | | | | | | +--------+ + + + + | 06/16/ | Office | Pulmonology | Eveline Jaffe | | | 2019 | Visit | | MD [address] | | | | | | [address] [place] | | | | | | [place] [address] | | | | | | [phone] | | | | | | | | +--------+ + + + + | 08/24/ | Office | Cardiology | Anisha Lopez DO | | | 2019 | Visit | | [address] | | | | | | [place] | | | | | | [address] | | | | | | | | +--------+ + + + + + +------+--------+ + + | Name | Type | Priori | Associated Diagnoses | Order Schedule | | | | ty | | | + +------+--------+ + + | Pulmonary function | PFT | ZEYNEP | Chronic | 1 Occurrences | | test | | | obstructive | starting 03/16/2019 | | | | | pulmonary disease, | until 03/16/2019 | | | | | unspecified COPD | | | | | | type (HCC) | | + +------+--------+ + + documented as of this encounter Visit Diagnoses + + | Diagnosis | + + | Chronic obstructive pulmonary disease, unspecified COPD type (HCC) | + + documented in this encounter Administered Medications + +--------+ +-------+------+------+ | Medication Order | MAR | Action | Dose | Rate | Site | | | Action | Date | | | | + +--------+ +-------+------+------+ | albuterol-ipratropium 2.5-0.5 | Given | 03/16/20 | 3 mLs | | | | mg/3 mL nebulizer solution 3 mL | | 19 4:34 | | | | | 3 mL, Nebulization, RT Once, Wed | | PM PDT | | | | | 03/16/19 at 1700, For 1 dose | | | | | | + +--------+ +-------+------+------+ +---+---+ | | | +---+---+ documented in this encounter"
--- OUTSIDE RECORDS SUMMARY | ~2019-05-05 | XMS | Encounter Summary ---
Demographics + + + | Address | [address] | | | [place] [address] | + + + | Home Phone [...] [place] | | | | | [address] | | + + + + + Care Team Providers + +------+ + | Care Engineering Documentation Specialist Name | Role | Phone | [...] | | | | | [address] | [facility] | | | | | [place], [place] | [place] [address] | | | | | [address] | [phone] | | | | | [phone] | | | +--------+---------+ + + + [...] can remove. 3. Follow-up care with Dr Molina. Vascular Access Port Implantation Port implantation is [...] the port is placed in the arm [id number] [employer]. [address] [place] [address], [place] [address]. All righ ts reserved. This information is [...] pain, ask for a daily dose. Judit farr that acetaminophen or other pain relievers may interact with prescription medicines or other dwht-jie-lcjjopl (OTC) drugs. The FDA recommends reading OTC medication labels careful ly to clearly understand the list of active ingredients, directions, and any precautions to help avoid taking too muchacetaminophen. If you have questions, ask your pharmacist or a [facility] care provider. Managing Nausea Some people [...] or skin changes (rash, itching, or hives). [id number] [employer]. [address] [place] [address], [place] [address]. All righ ts reserved. This information is [...] | | | | | [place] [address] | | | | | | [phone] | | | | | | | | +--------+ + + + + | 06/08/ | Office | Physical Medicine | Rocky Santos, | | | 2019 | Visit | and Rehabilitation | [address] | | | | | | [place] | | | | | | [address] | | | | | | | | +--------+ + + + + | 06/16/ | Appointment | Pulmonology | Eveline Jaffe | | | 2019 | | | MD [address] | | | | | | [address] [place] | | | | | | [place] [address] | | | | | | [phone] | | | | | | | | +--------+ + + + + | 06/16/ | Office | Pulmonology | Eveline Jaffe | | | 2019 | Visit | | MD [address] | | | | | | [address] [place] | | | | | | [place] [address] | | | | | | [phone] | | | | | | | | +--------+ + + + + | 08/24/ | Office | Cardiology | Anisha Lopez DO | | | 2019 | Visit | | [address] | | | | | | [place] | | | | | | [address] | | | | | | | [...] | | | | injection PRN, Starting Fri | | 15 4:20 | Units | | | | [...] | | | | | Pain, Starting 07/28/14 at | | | | | | [...] mLs | | Surgical | | Starting 07/28/14 at 1619, | | 15 4:19 | [...]
--- OUTSIDE RECORDS SUMMARY | ~2019-05-05 | XMS | Encounter Summary ---
Demographics + + + | Address | [address] | | | [place] [address] | + + + | Home Phone [...] [place] | | | | | [address] | | + + + + + Care Team Providers + +------+ + | Care Food Science Technician Name | Role | Phone | [...] Ct [address] | | | | | Pneumonia, | [place], | [address] | | | | | unspecified | Ayana B, | [place], | | | | | organism | MD [address] | [place] [address] | | | | | Malignant | [address] | Phone: | | | | | neoplasm of | [place], | [phone] | | | | | unspecified | [place] [address] | Fax: | | | | | part of | | [phone] | | | | | right | | | | | | | bronchus or | | | | | | | lung (HCC) | | | | | | | Procedures | | | | | | | CT Chest wo | | | | | | | Contrast | | | +--------+--------+ + + + [...] Ct [address] | | | | | Pneumonia, | [place], | [address] | | | | | unspecified | Ayana B, | [place], | | | | | organism | MD [address] | [place] [address] | | | | | Malignant | [address] | Phone: | | | | | neoplasm of | [place], | [phone] | | | | | unspecified | [place] [address] | Fax: | | | | | part of | | [phone] | | | | | right | | | | | | | bronchus or | | | | | | | lung (HCC) | | | | | | | Procedures | | | | | | | CT Chest wo | | | | | | | Contrast | | | +--------+--------+ + + + + Encounter Details +--------+ + + + + | Date | Type | Department | Care Team | Description | +--------+ + + + + | 11/29/ | Hospital | [facility] | [place], | Recurrent squamous | | 2016 | Encounter | MED CTR CT [address] | Ayana Looney MD | cell carcinoma of | | | | [address] [place], | | lung, right (HCC); | | | | [place] [address] | | Recurrent pneumonia | | | | [phone] | | | +--------+ + + + [...] | 15 | 7 | | ol (ELENAO ELLIPTA) | | | | | | [...] W | | | | | | [facility] | | | | | | [place] [address] | | | | | | [phone] | | | | | | | | +--------+ + + + + | 06/08/ | Office | Physical Medicine | Rocky Santos, | | | 2019 | Visit | and Rehabilitation | [address] | | | | | | [place] | | | | | | [phone] | | | | | | | | +--------+ + + + + | 06/16/ | Appointment | Pulmonology | Eveline Jaffe | | | 2019 | | | MD [address] | | | | | | [address] [place] | | | | | | [place] [address] | | | | | | [phone] | | | | | | | | +--------+ + + + + | 06/16/ | Office | Pulmonology | Eveline Jaffe | | | 2019 | Visit | | MD Nichole Carter | | | | | | [address] [place] | | | | | | [place] [address] | | | | | | [phone] | | | | | | | | +--------+ + + + + | 08/24/ | Office | Cardiology | Anisha Lopez DO | | 2019 | Visit | | [address] | | | | | | [place] | | | | | | [address] | | | | | | | | +--------+ + + + + documented as of this encounter Procedures + +--------+ + + + | Procedure Name | Priori | Date/Time | Associated Diagnosis | Comments | | | ty | | | | + +--------+ + + + | CT CHEST WO CONTRAST | Routin | 11/30/2015 | Recurrent squamous | Results for this | | | e | 9:25 AM | cell carcinoma of | procedure are in the | | | | PDT | lung, right (HCC) | results section. | | | | | Recurrent pneumonia | | + +--------+ + + + documented in this encounter Results CT Chest wo Contrast (11/30/2015 9:25 AM PDT) + + | Specimen | + + | | + + + + | Addenda | + + | Addendum by Matheus Kapadia MD on 12/01/2015 1:28 PM Some fusion hardware of the | | cervical spine is partially imaged. Dictated and Signed by: Matheus Kapadia MD | | Electronically signed: 12/01/2015 1:25 PM | + + + + + | Narrative | Performed At | + + + | CT CHEST WO CONTRAST 11/30/2015 9:19 AM HISTORY: Recurrent | [facility] | | pneumonia? On chemotherapy for recurrent cancer. COMPARISON: | [facility] | | Multiple priors. PROTOCOL: Axial images of the chest were | [facility] | | obtained. Coronal and sagittal reformations were acquired. | - IMAGING | | FINDINGS: Neck base is normal. The heart is of normal size. | | | Moderate coronary calcifications are present. There is mild | | | atherosclerosis of the thoracic aorta extending into the branches. | | | Moderate atherosclerosis is in the abdominal aorta. The pulmonary | | | arteries are unremarkable. SVC is normal. There remains a lobular | | | mass in the right hilum that currently measures 1.4 x 1.8 cm that | | | has decreased in size compared to 03/28/2015 consistent with good | | | response to therapy. Surgical sutures are in the region of the right | | | hilum. There is some mild to moderate scarring in the right lower | | | lobe likely related to therapy. Mild centrilobular emphysema is | | | present of the bilateral lungs. There is a stable 2 mm nodule in the | | | right lung apex (image 13). Decreased volume of the right lung is | | | present. Hyperinflation of the left lung is seen. No pleural effusion | | | or pneumothorax is observed. No enlarged lymph nodes are seen in | | | the mediastinum or axilla. Trachea and esophagus demonstrate no acute | | | findings. There are cholecystectomy clips. A left Port-A-Cath | | | is observed with tip in the mid SVC. Mild spondylosis is present. | | | There is diffuse osteopenia with patchy heterogeneous density to the | | | spine that remains stable. Stable mild wedging is observed of T7. | | | IMPRESSION - No evidence for focal pneumonia. Interval decreased | | | size of a lobular mass in right hilum consistent with good treatment | | | response. Mild emphysema. Dictated and Signed by: Matheus | | | MD Kang Electronically signed: 12/01/2015 1:20 PM | | + + + + + | Procedure Note | + + | Fabián, Rad Results In - 12/01/2015 1:[address] CHEST WO CONTRAST 11/30/2015 9:19 AM | | | | HISTORY: Recurrent pneumonia? On chemotherapy for recurrent cancer. | | | | COMPARISON: Multiple priors. | | | | PROTOCOL: Axial images of the chest were obtained. Coronal and sagittal | | reformations were acquired. | | | | FINDINGS: | | Neck base is normal. | | | | The heart is of normal size. Moderate coronary calcifications are present. There | | is mild atherosclerosis of the thoracic aorta extending into the branches. | | Moderate atherosclerosis is in the abdominal aorta. The pulmonary arteries are | | unremarkable. SVC is normal. | | | | There remains a lobular mass in the right hilum that currently measures 1.4 x | | 1.8 cm that has decreased in size compared to 03/28/2015 consistent with good | | response to therapy. Surgical sutures are in the region of the right hilum. | | There is some mild to moderate scarring in the right lower lobe likely related | | to therapy. Mild centrilobular emphysema is present of the bilateral lungs. | | There is a stable 2 mm nodule in the right lung apex (image 13). Decreased | | volume of the right lung is present. Hyperinflation of the left lung is seen. No | | pleural effusion or pneumothorax is observed. | | | | No enlarged lymph nodes are seen in the mediastinum or axilla. Trachea and | | esophagus demonstrate no acute findings. | | | | There are cholecystectomy clips. | | | | A left Port-A-Cath is observed with tip in the mid SVC. Mild spondylosis is | | present. There is diffuse osteopenia with patchy heterogeneous density to the | | spine that remains stable. Stable mild wedging is observed of T7. | | | | IMPRESSION - | | No evidence for focal pneumonia. | | | | Interval decreased size of a lobular mass in right hilum consistent with good | | treatment response. | | | | Mild emphysema. | | | | Dictated and Signed by: Matheus Kapadia MD | | Electronically signed: 12/01/2015 1:20 PM | + + + + + + + | Performing | Address | City/State/Zipcode | Phone Number | | Organization | | | | + + + + + | [facility] | [address] | [place] | [phone] | | [facility] | | [address] | | | - IMAGING | | | | + + + + + documented in this encounter Visit Diagnoses + + | Diagnosis | + + | Recurrent squamous cell carcinoma of lung, right (HCC) | + + | Recurrent pneumonia Pneumonia, organism unspecified | + + documented in this encounter
--- OUTSIDE RECORDS SUMMARY | ~2019-05-05 | XMS | Encounter Summary ---
Demographics + + + | Address | [address] | | | [place] [address] | + + + | Home Phone | | + + + | Preferred Language | Unknown | + + + | Marital Status | | + + + | Moravian Affiliation | Unknown | + + + | Race | Unknown | + + + | Ethnic Group | Unknown | + + + Author + + + | Author | [facility] | | | and [place] | + + + | Organization | [facility] | | [...] [place] | | | | | [address] | | + + + + + Care Team Providers + +------+ + | Care Quality Improvement Coordinator Name | Role | Phone | [...] Description | +--------+--------+ + + + | 04/10/ | Refill | [facility] | Santosh Sumner, | Medication Refill | | 2019 | | RHEUMATOLOGY [address] | PA-C [address] | | | | | [facility] | [facility] | | | | | [place], [place] | [place] [address] | | | | | [address] | [phone] | | | | | [phone] | | | +--------+--------+ + + + [...] | | | | | [place] [address] | | | | | | [phone] | | | | | | | | +--------+ + + + + | 06/08/ | Office | Physical Medicine | Rocky Santos, | | | 2019 | Visit | and Rehabilitation | [address] | | | | | | [place] | | | | | | [address] | | | | | | | | +--------+ + + + + | 06/16/ | Appointment | Pulmonology | Eveline Jaffe | | 2019 | | | MD [address] | | | | | | [address] [place] | | | | | | [place] [address] | | | | | | [phone] | | | | | | | | +--------+ + + + + | 06/16/ | Office | Pulmonology | Eveline Jaffe | | | 2019 | Visit | | MD [address] | | | | | | [address] [place] | | | | | | [place] [address] | | | | | | [phone] | | | | | | | | +--------+ + + + + | 08/24/ | Office | Cardiology | Anisha Lopez DO | | | 2019 | Visit | | [address] | | | | | | [place] | | | | | | [address] | | | | | | | | +--------+ + + + + documented as of this encounter Visit Diagnoses Not on filedocumented in this encounter"
--- OUTSIDE RECORDS SUMMARY | ~2019-05-05 | XMS | Encounter Summary ---
Demographics + + + | Address | [address] | | | [place] [address] | + + + | Home Phone [...] [place] | | | | | [address] | | + + + + + Care Team Providers + +------+ + | Care Sales Representative Printing Paper Name | Role | Phone | + +------+ + | Davis Ivan MD | PCP | | + +------+ + Encounter Details +--------+ + + + + | Date | Type | Department | Care Team | Description | +--------+ + + + + | 11/11/ | Hospital | [facility] | Conversion | Pain | | 2013 | Encounter | CONVERSION [address] | Transaction, | | | | | [address] | Provider Unknown | | | | | [place] | [phone] | | | | | [address] | | | | | | [phone] | | | +--------+ + + + [...] | | | | | [place] [address] | | | | | | [phone] | | | | | | | | +--------+ + + + + | 06/08/ | Office | Physical Medicine | Rocky Santos, | | | 2019 | Visit | and Rehabilitation | [address] | | | | | | [place] | | | | | | [address] | | | | | | | | +--------+ + + + + | 06/16/ | Appointment | Pulmonology | Eveline Jaffe | | | 2019 | | | MD [address] | | | | | | [address] [place] | | | | | | [place] [address] | | | | | | [phone] | | | | | | | | +--------+ + + + + | 06/16/ | Office | Pulmonology | Eveline Jaffe | | | 2019 | Visit | | MD [address] | | | | | | [address] [place] | | | | | | [place] [address] | | | | | | [phone] | | | | | | | | +--------+ + + + + | 08/24/ | Office | Cardiology | Anisha Lopez DO | | | 2019 | Visit | | [address] | | | | | | [place] | | | | | | [address] | | | | | | | | +--------+ + + + + documented as of this encounter Procedures + +--------+ + + + | Procedure Name | Priori | Date/Time | Associated Diagnosis | Comments | | | ty | | | | + +--------+ + + + | FL C ARM < 1 HOUR | Routin | 05/27/2012 | | Results for this | | | e | 3:36 AM | | procedure are in the | | | | PST | | results section. | + +--------+ + + + documented in this encounter Results FL C-Arm < 1 Hour (05/27/2012 3:36 AM PST) + + | Specimen [...]
--- OUTSIDE RECORDS SUMMARY | ~2019-05-05 | XMS | Encounter Summary ---
Demographics + + + | Address | [address] | | | [place] [address] | + + + | Home Phone | | + + + | Preferred Language | Unknown | + + + | Marital Status | | + + + | Latter-Day Affiliation | Unknown | + + + | Race | Unknown | + + + | Ethnic Group | Unknown | + + + Author + + + | Author | [facility] | | | and [place] | + + + | Organization | [facility] | | [...] [place] | | | | | [address] | | + + + + + Care Team Providers + +------+ + | Care Envelope Cutter Name | Role | Phone | + [...] Description | +--------+--------+ + + + | 08/04/ | Refill | [facility] [place] | Gurmeet Vargas | Medication Refill | | 2017 | | PULMONARY [address] | MD [address] | | | | | [place], | [place] | | | | | [place] [address] | [place] [address] | | | | | [phone] | [phone] | | | | | | | | +--------+--------+ [...] W | | | | | | [facility] | | | | | | [place] [address] | | | | | | [phone] | | | | | | | | +--------+ + + + + | 06/08/ | Office | Physical Medicine | Rocky Santos, | | | 2019 | Visit | and Rehabilitation | [address] | | | | | | [place] | | | | | | [id number] | | | | | | | | +--------+ + + + + | 06/16/ | Appointment | Pulmonology | Eveline Jaffe | | | 2019 | | | MD [address] | | | | | | [address] [place] | | | | | | [place] [address] | | | | | | [phone] | | | | | | | | +--------+ + + + + | 06/16/ | Office | Pulmonology | Eveline Jaffe | | | 2019 | Visit | | MD Nichole [address] | | | | | | [address] [place] | | | | | | [place], [place] [address] | | | | | | [phone] | | | | | | | | +--------+ + + + + | 08/24/ | Office | Cardiology | Anisha Lopez DO | | | 2019 | Visit | | [address] | | | | | | [place] | | | | | | [address] | | | | | | | | +--------+ + + + + documented as of this encounter Visit Diagnoses + + | Diagnosis | + + | Chronic obstructive pulmonary disease, unspecified COPD type (HCC) - Primary | + + documented in this encounter"
--- OUTSIDE RECORDS SUMMARY | ~2019-05-05 | XMS | Encounter Summary ---
Demographics + + + | Address | [address] | | | [place] [address] | + + + | Home Phone [...] [place] | | | | | [address] | | + + + + + Care Team Providers + +------+ + | Care Harness Fitter Name | Role | Phone | + [...] | bronchitis with | | | | [place], | [address] [place] | pulmonary emphysema | | | | [place] [address] | [place] [address] | (Primary Dx) | | | | [phone] | [phone] | | | | | | | [...] W | | | | | | [facility] | | | | | | [place] [address] | | | | | | [phone] | | | | | | | | +--------+ + + + + | 06/08/ | Office | Physical Medicine | Rocky Santos, | | | 2019 | Visit | and Rehabilitation | [address] | | | | | | [place] | | | | | | [address] | | | | | | | | +--------+ + + + + | 06/16/ | Appointment | Pulmonology | Eveline Jaffe | | | 2019 | | | MD [address] | | | | | | [address] [place] | | | | | | [place] [address] | | | | | | [phone] | | | | | | | | +--------+ + + + + | 06/16/ | Office | Pulmonology | Eveline Jaffe | | | 2019 | Visit | | MD [address] | | | | | | [address] [place] | | | | | | [place] [address] | | | | | | [phone] | | | | | | | | +--------+ + + + + | 08/24/ | Office | Cardiology | Anisha Lopez DO | | | 2019 | Visit | | [address] | | | | | | [place] | | | | | | [address] | | | | | | | | +--------+ + + + + documented as of this encounter Visit Diagnoses + + | Diagnosis | + + | 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
--- OUTSIDE RECORDS SUMMARY | ~2019-05-05 | XMS | Encounter Summary ---
Demographics + + + | Address | [address] | | | [place] [address] | + + + | Home Phone | | + + + | Preferred Language | Unknown | + + + | Marital Status | | + + + | Restorationist Affiliation | Unknown | + + + | Race | Unknown | + + + | Ethnic Group | Unknown | + + + Author + + + | Author | [facility] | | | and [place] | + + + | Organization | [facility] | | [...] + + + + + | Jewel Azeveod | ECON | [address] | | | | | [place] | | | | | [address] | | + + + + + Care Team Providers + +------+ + | Care Containers Sales Representative Name | Role | Phone | + +------+ + PCP | Unavailable | + +------+ + Encounter Details +--------+ + + + + | Date | Type | Department | Care Team | Description | +--------+ + + + + | 01/13/ | Hospital | [facility] | Conversion | | | 2013 | Encounter | [facility] | Transaction, | | | | | [address] | Provider Unknown | | | | | [place], [place] | | | | | | [address] | (Fax) | | | | | [phone] | | | +--------+ + + + [...] | | | | | [place] [address] | | | | | | [phone] | | | | | | | | +--------+ + + + + | 06/08/ | Office | Physical Medicine | Rocky Santos, | | | 2019 | Visit | and Rehabilitation | MD Varela [address] | | | | | | [place] | | | | | | [address] | | | | | | | | +--------+ + + + + | 06/16/ | Appointment | Pulmonology | Eveline Jaffe | | 2019 | | | MD [address]ole [address] | | | | | | [place] | | | | | | [place] [address] | | | | | | [phone] | | | | | | | | +--------+ + + + + | 06/16/ | Office | Pulmonology | Eveline Jaffe | | | 2019 | Visit | | MD Raul [address] | | | | | | [place] | | | | | | [place] [address] | | | | | | [phone] | | | | | | | | +--------+ + + + + | 08/24/ | Office | Cardiology | Anisha Lopez DO | | | 2019 | Visit | | [address] | | | | | | [place] | | | | | | [address] | | | | | | | | +--------+ + + + + documented as of this encounter Visit Diagnoses Not on filedocumented in this encounter"
--- OUTSIDE RECORDS SUMMARY | ~2019-05-05 | XMS | Encounter Summary ---
Demographics + + + | Address | [address] | | | [place] [address] | + + + | Home Phone | | + + + | Preferred Language | Unknown | + + + | Marital Status | | + + + | Advent Affiliation | Unknown | + + + | Race | Unknown | + + + | Ethnic Group | Unknown | + + + Author + + + | Author | [facility] | | | and [place] | + + + | Organization | [facility] | | | and [...] [place] | | | | | [address] | | + + + + + Care Team Providers + +------+ + | Care Transactional Attorney Name | Role | Phone | + +------+ + | Davis Ivan MD | PCP | | + +------+ + Encounter Details +--------+ + + + + | Date | Type | Department | Care Team | Description | +--------+ + + + + | 10/11/ | Hospital | [facility] | Adelita Lu MD | Pulmonary nodules; | | 2014 | Encounter | [facility] | [address] | Recurrent squamous | | | | [address] | [place], [place] | cell carcinoma of | | | | [place], | [address] | lung, right (HCC); | | | | [place] [address] | [phone] | Malignant neoplasm | | | | [phone] | | of lower lobe of | | | | | | right lung (HCC); | | | | | | Recurrent [...] | | | | | [place] [address] | | | | | | [phone] | | | | | | | | +--------+ + + + + | 06/08/ | Office | Physical Medicine | Rocky Santos, | | | 2019 | Visit | and Rehabilitation | MD Nichole Landis | | | | | | [place] | | | | | | [address] | | | | | | | | +--------+ + + + + | 06/16/ | Appointment | Pulmonology | Eveline Jaffe | | 2019 | | | MD [address] | | | | | | [address] | | | | | | [place] [address] | | | | | | [phone] | | | | | | | | +--------+ + + + + | 06/16/ | Office | Pulmonology | Eveline Jaffe | | | 2019 | Visit | | MD Raul [address] | | | | | | [place] | | | | | | [place] [address] | | | | | | [phone] | | | | | | | | +--------+ + + + + | 08/24/ | Office | Cardiology | Anisha Lopez DO | | | 2019 | Visit | | [address] | | | | | | [place] | | | | | | [address] | | | | | | | | +--------+ + + + + documented as of this encounter Procedures + +--------+ + + + | Procedure Name | Priori | Date/Time | Associated Diagnosis | Comments | | | ty | | | | + +--------+ + + + | CBC WITH | STAT | 10/11/2014 | Pulmonary nodules | Results for this | | DIFFERENTIAL | | 11:14 AM | Recurrent squamous | procedure are in the | | | | PDT | cell carcinoma of | results section. | | | | | lung, right (HCC) | | + +--------+ + + + | BUN | Routin | 10/11/2014 | Malignant neoplasm | Results for this | | | e | 11:14 AM | of lower lobe of | procedure are in the | | | | PDT | right lung (HCC) | results section. | + +--------+ + + + | CREATININE | Routin | 10/11/2014 | Malignant neoplasm | Results for this | | | e | 11:14 AM | of lower lobe of | procedure are in the | | | | PDT | right lung (HCC) | results section. | + +--------+ + + + | COMPREHENSIVE | STAT | 10/11/2014 | Pulmonary nodules | Results for this | | METABOLIC PANEL | | 11:14 AM | Recurrent squamous | procedure are in the | | | | PDT | cell carcinoma of | results section. | | | | | lung, right (HCC) | | + +--------+ + + + documented in this encounter Results Creatinine (10/11/2014 11:14 AM PDT) + +-------+ [...] | | | | | mL/min/1.73m2 | [facility] | | | [facility] | | | MEDICAL | | | [...] [address] | [place] | [phone] | | [facility] | | [address] | | | - LABORATORY | | | | + + + + + BUN (10/11/2014 11:14 AM PDT) [...] | [address] | [place] | [phone] | | [facility] | | [address] | | | - LABORATORY | | | | + + + + + Comprehensive Metabolic Panel (10/11/2014 11:14 AM PDT) + + + + + + | Component | Value | Ref Range | Performed | Pathologist | | | | | At | Signature | + + + + + + | Na | 138 | 136 - 149 | [facility] | | | | | mmol/L | [facility] | | | | | | MEDICAL | | | | | | CENTER - | | | | | | LABORATORY | | + + + + + + | K | 3.9 | 3.5 - 5.1 | [facility] | | | | | mmol/L | [facility] | | | | [...] + + + | Anion Gap | 5 | 3 - 16 mmol/L | [facility] | | | | | | [facility] | | | | | | MEDICAL | | | | | | CENTER - | | | | | | LABORATORY | | + + + + + + | Glucose | 93 | 70 - 109 mg/dL | [facility] | | | | | | [facility] | | | | | | MEDICAL | | | | | | CENTER - | | | | | | LABORATORY | | + + + + + + | BUN | 12 | 7 - 18 mg/dL | [facility] | | | | | | [facility] | | | | | | MEDICAL | | | | | | CENTER - | | | | | | LABORATORY | | + + + + + + | Creatinine | 0.77 | 0.60 - 1.30 | [facility] | | | | | mg/dL | [facility] | | | | | | MEDICAL | | | | | | CENTER - | | | | | | LABORATORY | | + + + + + + | eGFR if not | >60Comment: GLOMERULAR | >=60 | [facility] | | | | FILTRATION | mL/min/1.73m2 | [facility] | | | [facility] | RATE,ESTIMATED | | MEDICAL | | | | mL/min/1.33n1Stnj than | | CENTER - | | [...] + + + + | Calcium | 9.0 | 8.3 - 10.5 | [facility] | | | | | mg/dL | [facility] | | | | | | MEDICAL | | | | | | CENTER - | | | | | | LABORATORY | | + + + + + + | Albumin | 3.2 | 3.2 - 5.0 g/dL | [facility] | | | | | | [facility] | | | | | | MEDICAL | | | | | | CENTER - | | | | | | LABORATORY | | + + + + + + | Bilirubin | 0.5 | 0.1 - 1.5 mg/dL | [facility] | | | Total | | | [facility] | | | | | | MEDICAL | | | | | | CENTER - | | | | | | LABORATORY | | + + + + + + | Total | 6.3 | 6.0 - 7.8 g/dL | [facility] | | | Protein | | | [facility] | | | | | | MEDICAL | | | | | | CENTER - | | | | | | LABORATORY | | + + + + + + | AST | 24 | 10 - 42 U/L | [facility] | | | | | | [facility] | | | | | | MEDICAL | | | | | | CENTER - | | | | | | LABORATORY | | + + + + + + | ALT | 20 | 6 - 45 U/L | [facility] | | | | | | [facility] | | | | | | MEDICAL | | | | | | CENTER - | | | | | | LABORATORY | | + + + + + + | Alkaline | 64 | 40 - 110 U/L | [facility] | | | Phosphatase | | | [facility] | | | | | | MEDICAL | | | | | | CENTER - | | | | | | LABORATORY | | + + + + + + | Globulin | 3.1 | g/dL | [facility] | | | | | | [facility] | | | | | | MEDICAL | | | | | | CENTER - | | | | | | LABORATORY | | + + + + + + | Albumin/Mattie | 1.0 | | [facility] | | | bulin Ratio | | | [facility] | | | | | | MEDICAL | | | | | | CENTER - | | | | | | LABORATORY | | + + + + + + | BUN/Creatin | 15.6 | | [facility] | | | ine [...] ST. | [address] | [place], [place] | [phone] | | [facility] | | [address] | | | - LABORATORY | | | | + + + + + CBC with Differential (10/11/2014 11:14 AM PDT) + + + + + + | Component | Value | Ref Range | Performed | Pathologist | | | | | At | Signature | + + + + + + | WBC | 11.2 (H) | 4.0 - 11.0 K/uL | [facility] | | | | | | [facility] | | | | | | [facility]ICAL | | | | | | CENTER - | | | | | | LABORATORY | | + + + + + + | RBC | 3.40 (L) | 3.70 - 5.20 | [facility] | | | | | M/uL | [facility] | | | | | | MEDICAL | | | | | | CENTER - | | | | | | LABORATORY | | + + + + + + | Hemoglobin | 11.0 (L) | 11.5 - 16.0 | [facility] | | | | | g/dL | [facility] | | | | | | MEDICAL | | | | | | CENTER - | | | | | | LABORATORY | | + + + + + + | Hematocrit | 34.8 | 34.0 - 47.0 % | [facility] | | | | | | [facility] | | | | | | MEDICAL | | | | | | CENTER - | | | | | | LABORATORY | | + + + + + + | MCV | 102.5 (H) | 83.0 - 101.0 fL | [facility] | | | | | | [facility] | | | | | | [facility]ICAL | | | | | | CENTER - | | | | | | LABORATORY | | + + + + + + | MCH | 32.3 | 28.0 - 35.0 pg | [facility] | | | | | | [facility] | | | | | | MEDICAL | | | | | | CENTER - | | | | | | LABORATORY | | + + + + + + | MCHC | 31.5 (L) | 32.0 - 36.0 | [facility] | | | | | g/dL | [facility] | | | | | | MEDICAL | | | | | | CENTER - | | | | | | LABORATORY | | + + + + + + | RDW-CV | 24.7 (H) | <15.0 % | [facility] | | | | | | [facility] | | | | | | MEDICAL | | | | | | CENTER - | | | | | | LABORATORY | | + + + + + + | Platelet | 242 | 140 - 440 K/uL | [facility] | | | Count | | | [facility] | | | | | | MEDICAL | | | | | | CENTER - | | | | | | LABORATORY | | + + + + + + | MPV | 7.8 | fL | [facility] | | | | | | [facility] | | | | | | MEDICAL | | | | | | CENTER - | | | | | | LABORATORY | | + + + + + + | % | 87.9 (H) | 45.0 - 82.0 % | [facility] | | | Neutrophils | | | [facility] | | | | | | MEDICAL | | | | | | CENTER - | | | | | | LABORATORY | | + + + + + + | % | 4.6 (L) | 20.0 - 45.0 % | [facility] | | | Lymphocytes | | | [facility] | | | | | | MEDICAL | | | | | | CENTER - | | | | | | LABORATORY | | + + + + + + | % Monocytes | 6.4 | 4.0 - 12.0 % | [facility] | | | | | | [facility] | | | | | | MEDICAL | | | | | | CENTER - | | | | | | LABORATORY | | + + + + + + | % | 0.7 | 0.0 - 5.0 % | [facility] | | | Eosinophils | | | [facility] | | | | | | MEDICAL | | | | | | CENTER - | | | | | | LABORATORY | | + + + + + + | % Basophils | 0.4 | 0.0 - 1.0 % | [facility] | | | | | | [facility] | | | | | | MEDICAL | | | | | | CENTER - | | | | | | LABORATORY | | + + + + + + | Absolute | 9.90 (H) | 1.80 - 8.50 | [facility] | | | Neutrophils | | K/uL | [facility] | | | | | | MEDICAL | | | | | | CENTER - | | | | | | LABORATORY | | + + + + + + | Absolute | 0.50 (L) | 0.60 - 3.20 | [facility] | | | Lymphocytes | | K/uL | [facility] | | | | | | MEDICAL | | | | | | CENTER - | | | | | | LABORATORY | | + + + + + + | Absolute | 0.70 | 0.00 - 1.00 | [facility] | [...] | | Eosinophils | | K/uL | [facility] | | | | | | MEDICAL | | | | | | CENTER - | | | | | | LABORATORY | | + + + + + + | Absolute | 0.00 | 0.00 - 0.10 | [facility] | | | Basophils | | K/uL | [facility] | | | | | | [...] [address] | [place] | [phone] | | [facility] | | [address] | | | - LABORATORY | | | | + + + + + documented in this encounter Visit Diagnoses + + | Diagnosis | + + | Pulmonary nodules Other nonspecific abnormal finding of lung field | + + | Recurrent squamous cell carcinoma of lung, unspecified laterality (HCC) | + + | Malignant neoplasm of lower lobe of right lung (HCC) | + + documented in this encounter Administered Medications + +--------+ +-------+------+------+ | Medication Order | MAR | Action | Dose | Rate | Site | | | Action | Date | | | | + +--------+ +-------+------+------+ | heparin 100 units/mL flush 500 | Given | 10/12/19 | 500 | | | | Units 500 Units (5 mL), | | 15 11:29 | Units | | | | Intracatheter, PRN, Line Care, | | AM PDT | | | | | Starting 10/11/14 at 1114 | | | | | | + +--------+ +-------+------+------+ +---+---+ | | | +---+---+ documented in this encounter"
--- OUTSIDE RECORDS SUMMARY | ~2019-05-05 | XMS | Encounter Summary ---
Demographics + + + | Address | [address] | | | [place] [address] | + + + | Home Phone [...] [place] | | | | | [address] | | + + + + + Care Team Providers + +------+ + | Care Actuarial Clerk Name | Role | Phone | [...] | | | | is, | [address] | [address] | | | | | unspecified | [place], | [address] [place] | | | | | shoulder | [place] [address] | [place] | | | | | | Phone: | [address] | | | | | | [phone] | Phone: | | | | | | Fax: | [phone] | | | | | | [phone] | Fax: | | | | | | | [phone] | + +--------+ + + + + Encounter Details +--------+---------+ + + + | Date | Type | Department | Care Team | Description | +--------+---------+ + + + | 12/30/ | Office | [facility] | Rodney Worthy | Impingement syndrome | | 2019 | Visit | ORTHOPEDIC SURGERY | MD [address] | of right shoulder | | | | [address] | [facility] | (Primary Dx); | | | | [place], [place] | [place] [address] | Impingement syndrome | | | | [address] | [phone] | of left shoulder | | | | [phone] | | | +--------+---------+ + + + [...] Weight | 68.5 kg (151 lb) | 12/30/2018 2:03 PM | | | | | PDT | | + + + + + | Height | 157.5 cm (5' 2") | 12/30/2018 2:03 PM | | | | | PDT | | + + + + + | Body Mass Index | 27.62 | 12/30/2018 2:03 PM | | | [...] of this encounter Patient Instructions Patient Instructions Rodeny Worthy MD - 12/30/2018 2:30 PM PDT Shoulder Impingement Syndrome The [...] strength Fever or chills Date Last Reviewed: 12/31/201519998484-8385 [employer]. [address] [place] [address]. All righ ts reserved. This information is not intended as a substitute for professional medical care. Always follow your healthcare professional's instructions. documented in this encounter Progress Notes Rodney Worthy MD - 12/30/2018 2:30 PM PDTFormatting of this note might be dif ferent from the original. [facility] [address] RETURN CLINIC VISIT Pt. Name/Age/: Thea Carmona 73 y.o. 1945 Primary Care Physician: Davis Ivan Chief Complaint/Reason for Visit: Follow-up, Office Visit and Shoulder Pain (Bilateral) History of Present Illness: The patient is a pleasant 73 y.o. female who presents for a repeat visit for bilateral shou lder pain. She has not yet started physical therapy. She reports that her shoulder pain wa s helped by the injections for about 2 weeks but that her pain has returned to normal. Her left shoulder bothers her more than the right. He can be as much as a 7 out of 10 pain gupta . It bothers her with any kind of activity. Of note, she does ambulate with a cane which s he holds in her right hand. Past Medical History: Past Medical History: Diagnosis Date Acid reflux disease Arthritis COPD (chronic obstructive pulmonary disease) ([facility]) on albuterol Depression HONG (dyspnea on exertion) Full dentures upper & lower GERD (gastroesophageal reflux disease) Hyperlipidemia on simvastatin Hypertension on clonidine and lisinopril Hypothyroidism Obesity MARCE (obstructive sleep apnea) no CPAP Osteoporosis Pneumonia 2008 hospitalized 5 days 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 Lewis [place] Spinal stenosis has tried cortisone injections Spondylolisthesis of cervical region Sputum culture positive for Scopulariopsis species Squamous cell carcinoma of lung (HCC) 07/2013 right lower lobe Stroke (HCC) 2006 Stroke ([facility]) 2007 left sided weakness Upper GI bleed 06/2014 admitted [place] W[facility] dentures Past Surgical History: Procedure Laterality Date BACK SURGERY 03/2014 BLADDER SUSPENSION BRONCHOSCOPY 07/11/2014 EBUS with right hilar LN biopsy, [facility] Dr. [place] CERVICAL SPINE SURGERY 2012 CHOLECYSTECTOMY COLONOSCOPY 06/2014 ENDOSCOPY FINGER TRIGGER RELEASE Left 12/14/2018 Procedure: Left Thumb Trigger Finger Release, Left Index Trigger Finger Release, Left Long Trigger Finger Release, Left Ring Trigger Finger Release; Surgeon: Giuliano Padilla MD; Lo cation: [facility] MAIN OR HAND ARTHROPLASTY Left 03/20/2015 Procedure: Left 1st C.M.C. Arthroplasty; Surgeon: Giuliano Padilla MD; Location: [facility] MA[facility] OR HAND ARTHROPLASTY Right 10/27/2017 Procedure: Right 1st CMC Arthroplasty; Surgeon: Giuliano Padilla MD; Location: [facility] MA[facility] O R HYSTERECTOMY LOBECTOMY 09/16/13 right lower lobe LUNG BIOPSY 07/21/13 right lower lobe SHOULDER SURGERY SHOULDER SURGERY right shoulder THUMB SURGERY TONGUE SURGERY benign per pt TUNNELED VENOUS PORT PLACEMENT N/A 07/28/2014 Procedure: Port Placement; Surgeon: Chalino Chiu MD; Location: [facility] MAIN OR Allergies: No Known Allergies [...] 6 tablets by mouth every week 0 metoprolol succinate (TOPROL-XL) 25 mg 24 [...] non-medical: Not on file Occupational History 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 Tobacco Use Smoking status: Former Smoker Packs/day: 1.00 Years: 50.00 Pack years: 50.00 Types: Cigarettes Start date: 03/08/1952 Last attempt to quit: 07/24/2016 Years since quittin.4 Smokeless tobacco: Never Used Substance and Sexual Activity Alcohol use: Not Currently Alcohol/week: 0.0 oz Comment: pt states she was an alcoholic for 40 years but quit in 05/2012 Drug use: Not Currently Comment: marijuana in the remote past Sexual activity: Not on file Other Topics Concern Not on file Social History Narrative Lives: in [place] With: alone Grew up: in [place] Has previously lived in: [place] Exposure to toxic chemicals: no Exposure to [...] [x] Back or shoulder pain [x]Rheumatoid disease [] Osteoarthritis [x] Joint pain [x] Joint swelling []Gout [] Leg cramps at night Endocrine: [x] Thyroid [] Diabetes Admission Weight: Weight: 68.5 kg (151 lb) BMI: Body mass index is 27.62 kg/m. Physical Examination: Ht 1.575 m (5' 2") | Wt 68.5 kg (151 lb) | BMI 27.62 kg/m General: Alert, oriented, no acute distress HEENT: Normocephalic, atraumatic Cardiovascular: Regular rate and rhythm Respiratory: Breathing normally at a regular rate Ortho Exam Bilateral Shoulder Exam Right Left Forward Flexion 130 110 Abduction 100 190 External Rotation 30 20 Tender to Palpation: globally but particularly over the left bicipital groove External Rotation Strength 5/5 Internal Rotation Strength 5/5 Hawkin's Positive Neer's Positive Gary's Positive Speed's Positive on left but not on right Yergason's Negative Radial pulse 2+. Sensation intact to light touch in the first dorsal webspace, and the pads of the small and index fingers. Able to flex and extend the thumb at the interphalangeal bryan int, make an "ok" sign, adduct and abduct the fingers, and oppose the thumb to the small fin casandra. Diagnostic Studies: Imaging Labs- Lab Results Component Value Date NA 142 12/09/2018 K 3.6 12/09/2018 CL 106 12/09/2018 CO2 29 12/09/2018 ANIONGAP 7 12/09/2018 GLU 109 (H) 12/09/2018 BUN 20 12/09/2018 CREA 1.08 (H) 12/09/2018 GFRNONAA 50 (L) 12/09/2018 CALCIUM 9.7 12/09/2018 ALBUMIN 4.1 09/28/2018 BILITOT 0.5 09/28/2018 TOTALPROTEIN 6.3 09/28/2018 AST 23 09/28/2018 ALT 21 09/28/2018 ALKPHOS 67 09/28/2018 WBC 10.3 09/28/2018 HGB 11.3 (L) 09/28/2018 HCT 36.5 09/28/2018 MCV 94.1 09/28/2018 PLT 305 09/28/2018 INR 1.0 09/28/2018 Assessment and Plan: 1. Impingement syndrome of right shoulder 2. Impingement syndrome of left shoulder The patient is a pleasant 73 y.o. female who presents for a repeat visit with bilateral monet ulder impingement signs and left biceps tendinitis. Treatment options were discussed with th e patient including non-operative treatment modalities. Considering the nature of the cody lieberman's condition, decision was made to proceed with physical therapy. She is just about to sta rt this. I think it is worth giving her time to do this before making a different recommend ation. We will have her follow-up in 2 months. She is not making headway with therapy, I t hink that an MRI would be a reasonable consideration. [facility] if she is not doing well.. Follow-up: Return in about 2 months (around 03/01/2019). with no x-ray Portions of this report were transcribed using voice recognition software. Every effort wa s made to ensure accuracy; however, inadvertent computerized asphalt machine operator errors may be pre sent. I appreciate [...] W | | | | | | [facility] | | | | | | [place] [address] | | | | | | [phone] | | | | | | | | +--------+ + + + + | 06/08/ | Office | Physical Medicine | Rocky Santos, | | | 2019 | Visit | and Rehabilitation | MD Varela [address] | | | | | | [place] | | | | | | [address] | | | | | | | | +--------+ + + + + | 06/16/ | Appointment | Pulmonology | Eveline Jaffe | | | 2019 | | | MD [address]ole [address] | | | | | | [address] [place] | | | | | | [place] [address] | | | | | | [phone] | | | | | | | | +--------+ + + + + | 06/16/ | Office | Pulmonology | Eveline Jaffe | | | 2019 | Visit | | MD Nichole [address] | | | | | | [address] [place] | | | | | | [place] [address] | | | | | | [phone] | | | | | | | | +--------+ + + + + | 08/24/ | Office | Cardiology | Anisha Lopez DO | | | 2019 | Visit | | [address] | | | | | | [place] | | | | | | [address] | | | | | | | | +--------+ + + + + documented as of this encounter Visit Diagnoses + + | Diagnosis | + + | Impingement syndrome of right shoulder - Primary Other affections of shoulder region, | | not elsewhere classified | + + | Impingement syndrome of left shoulder Other affections of shoulder region, not | | elsewhere classified | + + documented in this encounter
--- OUTSIDE RECORDS SUMMARY | ~2019-05-05 | XMS | Encounter Summary ---
Demographics + + + | Address | [address] | | | [place] [address] | + + + | Home Phone [...] | + + + + + | Mriza Bee | ECON | Unknown | | + + + + + | Jewel Azevedo | ECON | [address] | | | | | [place] | | | | | [address] | | + + + + + Care Team Providers + +------+ + | Care Vascular Specialists Name | Role | Phone | + +------+ + | Davis Ivan MD | PCP | | + +------+ + Reason for Visit +---------+ + | Reason | Comments | +---------+ + | Post Op | left 1st cmc arthroiplasty dos 03/20/15 | +---------+ + Encounter Details +--------+---------+ + + + | Date | Type | Department | Care Team | Description | +--------+---------+ + + + | 03/28/ | Office | [facility] | Giuliano Padilla, | Postop check | | 2014 | Visit | ORTHOPEDIC SURGERY | [address] | (Primary Dx) | | | | [address] [facility] | [place] | | | | | [place] | [address] | | | | | [address] | | | | | | [phone] | | | +--------+---------+ + + + [...] + + + + | Temperature | 36.7 C (98 F) | 03/28/2015 12:53 PM | | | | | PDT [...] Weight | 72.6 kg (160 lb) | 03/28/2015 12:53 PM | | | | | PDT | | + + + + + | Height | 157.5 cm (5' 2") | 03/28/2015 12:53 PM | | | | | PDT | | + + + + + | Body Mass Index | 29.26 | 03/28/2015 12:53 PM | | | | | PDT | | + + + + + documented in this encounter Progress Notes Giuliano Padilla MD - 03/28/2015 3:37 PM PDTPatient returns follow-up first [facility] arthroplas ty with removal of her hemiarthroplasty implant She's doing very well Her dressings are changed sutures are removed and Steri-Strips applied Her hand looks much better than preop We showed her hand exercises to work on I would like to see her again in 3-4 weeksElectronically signed by Giuliano Padilla MD at 3:37 PM PDTdocumented in this encounter Plan of Treatment +--------+ + + + + | Date | Type | Specialty | Care Team | Description | +--------+ + + + + | 05/30/ | Office | Rheumatology | Santosh Sumner, | | | 2018 | Visit | | [address] | | | | | | [facility] | | | | | | [place] [address] | | | | | | [phone] | | | | | | | | +--------+ + + + + | 06/08/ | Office | Physical Medicine | Rocky Santos, | | | 2019 | Visit | and Rehabilitation | MD [address] | | | | | | [place] | | | | | | [address] | | | | | | | | +--------+ + + + + | 06/16/ | Appointment | Pulmonology | Eveline Jaffe | | | 2019 | | | MD [address] | | | | | | [address] | | | | | | [place] [address] | | | | | | [phone] | | | | | | | | +--------+ + + + + | 06/16/ | Office | Pulmonology | Eveline Jaffe | | | 2019 | Visit | | MD [address] | | | | | | [address] | | | | | | [place] [address] | | | | | | [phone] | | | | | | | | +--------+ + + + + | 08/24/ | Office | Cardiology | Anisha Lopez DO | | | 2019 | Visit | | [address] | | | | | | [place], [place] | | | | | | [address] | | | | | | | | +--------+ + + + + documented as of this encounter Visit Diagnoses + + | Diagnosis | + + | Postop check - Primary Follow-up examination, following unspecified surgery | + + documented in this encounter
--- OUTSIDE RECORDS SUMMARY | ~2019-05-05 | XMS | Encounter Summary ---
Demographics + + + | Address | [address] | | | [place] [address] | + + + | Home Phone | | + + + | Preferred Language | Unknown | + + + | Marital Status | | + + + | Hinduism Affiliation | Unknown | + + + | Race | Unknown | + + + | Ethnic Group | Unknown | + + + Author + + + | Author | [facility] | | | and [place] | + + + | Organization | [facility] | | | [...] [address] | | | | | [address] | | + + + + + Care Team Providers + +------+ + | Care Manager Programming Name | Role | Phone | + +------+ + PCP | Unavailable | + +------+ + Encounter Details +--------+ + + + + | Date | Type | Department | Care Team | Description | +--------+ + + + + | 01/13/ | Hospital | [facility] | Conversion | | | 2012 | Encounter | [facility] | Transaction, | | | | | CLINIC [address] | Provider Unknown | | | | | [address] [place], [place] | | | | | | [address] | | | | | | [phone] | | | +--------+ + + + [...] | | | | | [place] [address] | | | | | | [phone] | | | | | | | | +--------+ + + + + | 06/08/ | Office | Physical Medicine | Rocky Santos, | | | 2019 | Visit | and Rehabilitation | MD [address] | | | | | | [place] | | | | | | [address] | | | | | | | | +--------+ + + + + | 06/16/ | Appointment | Pulmonology | Eveline Jaffe | | 2019 | | | MD [address] | | | | | | [address] | | | | | | [place] [address] | | | | | | [phone] | | | | | | | | +--------+ + + + + | 06/16/ | Office | Pulmonology | Eveline Jaffe | | | 2019 | Visit | | MD Ra[address] | | | | | | [place] | | | | | | [place] [address] | | | | | | [phone] | | | | | | | | +--------+ + + + + | 08/24/ | Office | Cardiology | Anisha Lopez DO | | | 2019 | Visit | | [address] | | | | | | [place] | | | | | | [address] | | | | | | | | +--------+ + + + + documented as of this encounter Procedures + +--------+ + + + | Procedure Name | Priori | Date/Time | Associated Diagnosis | Comments | | | ty | | | | + +--------+ + + + | XR CHEST 2 VIEWS | Routin | 01/13/2013 | | Results for this | | | e | 3:20 PM | | procedure are in the | | | | PDT | | results section. | + +--------+ + + + | MRSA NAAT | Timed | 01/13/2013 | | Results for this | | | | 2:38 PM | | procedure are in the | | | | PDT | | results section. | + +--------+ + + + documented in this encounter Results XR Chest 2 Vws (01/13/2013 3:20 PM PDT) + + | Specimen | + + | | + + + + + | Narrative | Performed At | + + + | [facility] XR CHEST 2 VIEW FRONTAL AND LATERAL HISTORY: | | | 67 years. Female. Prior smoker. Preoperative chest x-ray. | | | TECHNIQUE: Frontal and lateral views of the chest were obtained. | | | COMPARISON: None. FINDINGS: Heart is normal in size. No | | | pulmonary vascular congestion. No pneumothorax. No focal airspace | | | disease or pleural effusion. Mild linear nodular opacity within the | | | right perihilar region measuring 1.1 cm in most likely related to | | | atelectasis or bronchovascular markings. Lung nodule is not | | | completely excluded. IMPRESSION: 1. A 1.1-cm right perihilar | | | opacity likely relates to atelectasis or bronchovascular markings. | | | Small lung nodules not excluded. CT chest could be performed to | | | further evaluate. Electronically signed by Pillo Barbour DO on | | | 01/13/2013 3:48 PM | | + + + + + | Procedure Note | + + | Raoul Lockwood Conversion - 01/21/2019 4:40 PM PDT [facility] CHEST 2 VIEW FRONTAL | | AND LATERAL HISTORY:67 years. Female. Prior smoker. Preoperative chest x-ray. TECHNIQUE: | | Frontal and lateral views of the chest were obtained. COMPARISON:None. FINDINGS:Heart | | is normal in size. No pulmonary vascular congestion. No pneumothorax. No focal airspace | | disease or pleural effusion. Mild linear nodular opacity within the right perihilar | | region measuring 1.1 cm in most likely related to atelectasis or bronchovascular | | markings. Lung nodule is not completely excluded. IMPRESSION:1. A 1.1-cm right | | perihilar opacity likely relates to atelectasis or bronchovascular markings. Small lung | | nodules not excluded. CT chest could be performed to further evaluate. Electronically | | signed by Pillo Barbour DO on 01/13/2013 3:48 PM | |None. | | | |FINDINGS: | |Heart is normal in size. No pulmonary vascular congestion. No pneumothorax. No focal airspa ce disease or pleural effusion. Mild linear nodular opacity within the right perihilar regio n measuring 1.1 cm in most likely related to atelectasis or | |bronchovascular markings. Lung nodule is not completely excluded. | | | |IMPRESSION: | |1. A 1.1-cm right perihilar opacity likely relates to atelectasis or bronchovascular jacques ngs. Small lung nodules not excluded. CT chest could be performed to further evaluate. | | | | | + + MRSA NAAT (01/13/2013 2:38 PM PDT) + + | Specimen | + + | | + + + + + | Narrative | Performed At | + + + | [facility] | EXTERNAL LAB | | Testing performed at [address];[place] [address] MRSA PCR | | | NEGATIVE Testing performed at | | | [address];[place] [address] | | + + + + +---------+ + + | Performing | Address | City/State/Zipcode | Phone Number | | Organization | | | | + +---------+ + + | EXTERNAL LAB | | | | + +---------+ + + documented in this encounter Visit Diagnoses Not on filedocumented in this encounter"
--- OUTSIDE RECORDS SUMMARY | ~2019-05-05 | XMS | Encounter Summary ---
Demographics + + + | Address | [address] | | | [place] [address] | + + + | Home Phone | | + + + | Preferred Language | Unknown | + + + | Marital Status | | + + + | Islam Affiliation | Unknown | + + + | Race | Unknown | + + + | Ethnic Group | Unknown | + + + Author + + + | Author | [facility] | | | and [place] | + + + | Organization | [facility] | | | [...] [place] | | | | | [address] | | + + + + + Care Team Providers + +------+ + | Care Typesetting Machine Operator/Tender Name | Role | Phone | + +------+ + | Davis Ivan MD | PCP | | + +------+ + Reason for Visit +---------+ + | Reason | Comments | +---------+ + | Results | ultrasound | +---------+ + Encounter Details +--------+ + + + + | Date | Type | Department | Care Team | Description | +--------+ + + + + | 09/07/ | Telephone | [facility] [place] | Claudia, | Results (ultrasound) | | 2014 | | PULMONARY [address] | Ayana Looney MD | | | | | [place], | | | | | | [place] [address] | | | | | | [phone] | | | +--------+ + + + [...] | | | | | | [facility] | | | | | | [place] [address] | | | | | | [phone] | | | | | | | | +--------+ + + + + | 06/08/ | Office | Physical Medicine | Rocky Santos, | | | 2019 | Visit | and Rehabilitation | MD [address] | | | | | | [place] | | | | | | [id number] | | | | | | | | +--------+ + + + + | 06/16/ | Appointment | Pulmonology | Eveline Jaffe | | | 2019 | | | MD [address] | | | | | | [address] | | | | | | [place] [address] | | | | | | [phone] | | | | | | | | +--------+ + + + + | 06/16/ | Office | Pulmonology | Eveline Jaffe | | | 2019 | Visit | | MD Nichole Carter | | | | | | [address] | | | | | | [place] [address] | | | | | | [phone] | | | | | | | | +--------+ + + + + | 08/24/ | Office | Cardiology | Anisha Lopez DO | | 2019 | Visit | | [address] | | | | | | [place] | | | | | | [address] | | | | | | | | +--------+ + + + + documented as of this encounter Visit Diagnoses Not on filedocumented in this encounter"
--- OUTSIDE RECORDS SUMMARY | ~2019-05-05 | XMS | Encounter Summary ---
Demographics + + + | Address | [address] | | | [place] [address] | + + + | Home Phone [...] [place] | | | | | [address] | | + + + + + Care Team Providers + +------+ + | Care Uranium Processing Supervisor Name | Role | Phone | + +------+ + | Davis Ivan MD | PCP | | + +------+ + Encounter Details +--------+ + + + + | Date | Type | Department | Care Team | Description | +--------+ + + + + | 08/30/ | Hospital | [facility] | Conversion | Pain | | 2014 | Encounter | CON[address] | Transaction, | | | | | [address] | Provider Unknown | | | | | [place] | [phone] | | | | | [address] | | | | | | [phone] | | | +--------+ + + + [...] | | | | | | [place] [address] | | | | | | [phone] | | | | | | | | +--------+ + + + + | 06/08/ | Office | Physical Medicine | Rocky Santos, | | | 2019 | Visit | and Rehabilitation | MD [address] | | | | | | [place] | | | | | | [address] | | | | | | | | +--------+ + + + + | 06/16/ | Appointment | Pulmonology | Eveline Jaffe | | 2019 | | | MD [address] | | | | | | [place] | | | | | | [place] [address] | | | | | | [phone] | | | | | | | | +--------+ + + + + | 06/16/ | Office | Pulmonology | Eveline Jaffe | | | 2019 | Visit | | MD Raul [address] | | | | | | [place] | | | | | | [place] [address] | | | | | | [phone] | | | | | | | | +--------+ + + + + | 08/24/ | Office | Cardiology | Anisha Lopez DO | | | 2019 | Visit | | [address] | | | | | | [place] | | | | | | [address] | | | | | | | | +--------+ + + + + documented as of this encounter Procedures + +--------+ + + + | Procedure Name | Priori | Date/Time | Associated Diagnosis | Comments | | | ty | | | | + +--------+ + + + | XR LUMBAR SPINE 2 OR | Routin | 06/12/2010 | | Results for this | | 3 VW | e | 3:04 AM | | procedure are in the | | | | PST | | results section. | + +--------+ + + + documented in this encounter Results XR Lumbar Spine 2 or 3 Vw (06/12/2010 3:04 AM PST) + + | Specimen | [...]
--- OUTSIDE RECORDS SUMMARY | ~2019-05-05 | XMS | Encounter Summary ---
Demographics + + + | Address | [address] | | | [place] [address] | + + + | Home Phone | | + + + | Preferred Language | Unknown | + + + | Marital Status | | + + + | Zoroastrianism Affiliation | Unknown | + + + | Race | Unknown | + + + | Ethnic Group | Unknown | + + + Author + + + | Author | [facility] | | | and [place] | + + + | Organization | [facility] | | | [...] [place] | | | | | [address] | | + + + + + Care Team Providers + +------+ + | Care Admitting Supervisor Name | Role | Phone | + +------+ + | Davis vIan MD | PCP | | + +------+ + Encounter Details +--------+ + + + + | Date | Type | Department | Care Team | Description | +--------+ + + + + | 11/01/ | Hospital | [facility] | Rodney Worthy | Left shoulder pain, | | 2019 | Encounter | [facility] [address] [facility] | MD [address] | unspecified | | | | [address] [place] | [address] | chronicity; Right | | | | [place] | [place] [address] | shoulder pain, | | | | [address] | [phone] | unspecified | | | | [phone] | | chronicity; | | | | | | Bilateral shoulder | | | | | | pain, unspecified | | | | | | chronicity | +--------+ + + + + Social [...] + + + +---------+ + + | dilTIAZem | Take 1 capsule by | 30 | 0 | 09/29/19 | | | (CARDIZEM CD) 180 mg | mouth Daily. | capsule | | 19 | 9 | | 24 hr capsule | | | | | | [...] | | | | | [place] [address] | | | | | | [phone] | | | | | | | | +--------+ + + + + | 06/08/ | Office | Physical Medicine | Rocky Santos, | | | 2019 | Visit | and Rehabilitation | MD [address]ole [address] | | | | | | [place] | | | | | | [address] | | | | | | | | +--------+ + + + + | 06/16/ | Appointment | Pulmonology | Eveline Jaffe | | 2019 | | | MD [address] | | | | | | [address] | | | | | | [place] [address] | | | | | | [phone] | | | | | | | | +--------+ + + + + | 06/16/ | Office | Pulmonology | Eveline Jaffe | | | 2019 | Visit | | MD Raul [address] | | | | | | [address] [place] | | | | | | [place] [address] | | | | | | [phone] | | | | | | | | +--------+ + + + + | 08/24/ | Office | Cardiology | Anisha Lopez DO | | | 2019 | Visit | | [address] | | | | | | [place] | | | | | | [address] | | | | | | | | +--------+ + + + + documented as of this encounter Procedures + +--------+ + + + | Procedure Name | Priori | Date/Time | Associated Diagnosis | Comments | | | ty | | | | + +--------+ + + + | XR SHOULDER RIGHT 2 | Routin | 11/01/2018 | Left shoulder | Results for this | | + VW | e | 11:00 AM | pain, unspecified | procedure are in the | | | | PDT | chronicity Right | results section. | | | | | shoulder pain, | | | | | | unspecified | | | | | | chronicity | | | | | | Bilateral shoulder | | | | | | pain, unspecified | | | | | | chronicity | | + +--------+ + + + | XR SHOULDER LEFT 1 | Routin | 11/01/2018 | Left shoulder | Results for this | | VW | e | 11:00 AM | pain, unspecified | procedure are in the | | | | PDT | chronicity Right | results section. | | | | | shoulder pain, | | | | | | unspecified | | | | | | chronicity | | + +--------+ + + + documented in this encounter Results XR Shoulder Right 2 [...] | Fabián, Rad Results In - 11/01/2018 12:38 PM PDT [...] + + XR Shoulder Left 1 Vw 11/01/2018 11:00 AM PDT) + + | Specimen [...] + + | Performing | Address | City/State/[facility] | Phone Number | | Organization | | | | + +---------+ + + | [facility] | | | | + +---------+ + + documented in this encounter Visit Diagnoses + + | Diagnosis | + + | Left shoulder pain, unspecified chronicity | + + | Right shoulder pain, unspecified chronicity | + + | Bilateral shoulder pain, unspecified chronicity | + + documented in this encounter"
--- OUTSIDE RECORDS SUMMARY | ~2019-05-05 | XMS | Encounter Summary ---
Demographics + + + | Address | [address] | | | [place] [address] | + + + | Home Phone | | + + + | Preferred Language | Unknown | + + + | Marital Status | | + + + | Holiness Affiliation | Unknown | + + + | Race | Unknown | + + + | Ethnic Group | Unknown | + + + Author + + + | Author | [facility] | | | and [place] | + + + | Organization | [facility] | | [...] [place] | | | | | [address] | | + + + + + Care Team Providers + +------+ + | Care Charge Entry Clerk Name | Role | Phone | [...] | | | Trigger | | [place] [address] | | | | | finger, left | | Phone: | | | | | ring finger | | [phone] | | | | | Trigger | | Fax: | | | | | middle | | [phone] | | | | | finger of | | | | | | | left hand | | | | | | | Procedures | | | | | | | MO INCISE | | | | | | [...] + | 09/28/ | Surgery | [facility] | Giuliano Padilla, | Canceled | | 2019 | | MED CTR OR INTRA OP | [address] | PROCEDURE NOT | | | | [address] | [place] | PERFORMED - Left | | | | [place], [place] | [address] | Thumb, Long and | | | | [address] | | Index Trigger Finger | | | | [phone] | | Release | +--------+---------+ + + [...] | | | | | [place] [address] | | | | | | [phone] | | | | | | | | +--------+ + + + + | 06/08/ | Office | Physical Medicine | Rocky Santos, | | | 2019 | Visit | and Rehabilitation | MD [address]is | | | | | | [place] | | | | | | [address] | | | | | | | | +--------+ + + + + | 06/16/ | Appointment | Pulmonology | Eveline Jaffe | | 2019 | | | MD [address] | | | | | | [address] | | | | | | [place] [address] | | | | | | [phone] | | | | | | | | +--------+ + + + + | 06/16/ | Office | Pulmonology | Eveline Jaffe | | | 2019 | Visit | | MD [address] | | | | | | [address] | | | | | | [place] [address] | | | | | | [phone] | | | | | | | | +--------+ + + + + | 08/24/ | Office | Cardiology | Anisha Lopez DO | | | 2019 | Visit | | [address] | | | | | | [place] | | | | | | [address] | | | | | | | [...]
--- OUTSIDE RECORDS SUMMARY | ~2019-05-05 | XMS | Encounter Summary ---
Demographics + + + | Address | [address] | | | [place] [address] | + + + | Home Phone [...] + | Author | [facility] | | | and [place] | + + + | Organization | [facility] | | | and [...] [place] | | | | | [address] | | + + + + + Care Team Providers + +------+ + | Care Laborer Carpentry Dock Name | Role | Phone | + [...] + + | 01/15/ | Refill | [facility] | Vivian, | Medication Refill | | 2014 | | MED CTR MEDICAL | Lokesh Gramajo MD [address] | | | | | [facility] [address] | [facility] | | | | | [address] [facility] | [place] [address] | | | | | [place] [address] | [phone] | | | | | [phone] | | | +--------+--------+ + + + [...] | 2018 | Visit | | [address] | | | | | | [facility] | | | | | | [place] [address] | | | | | | [phone] | | | | | | | | +--------+ + + + + | 06/08/ | Office | Physical Medicine | Rocky Santos, | | | 2019 | Visit | and Rehabilitation | [address] | | | | | | [place] | | | | | | [address] | | | | | | | | +--------+ + + + + | 06/16/ | Appointment | Pulmonology | Eveline Jaffe | | 2019 | | | MD [address] | | | | | | [address] [place] | | | | | | [place] [address] | | | | | | [phone] | | | | | | | | +--------+ + + + + | 06/16/ | Office | Pulmonology | Eveline Jaffe | | | 2019 | Visit | | MD Nichole Carter | | | | | | [address] | | | | | | [place] [address] | | | | | | [phone] | | | | | | | | +--------+ + + + + | 08/24/ | Office | Cardiology | Anisha Lopez DO | | 2019 | Visit | | [address] | | | | | | [place] | | | | | | [address] | | | | | | | | +--------+ + + + + documented as of this encounter Visit Diagnoses + + | Diagnosis | + + | Gastroesophageal reflux disease without esophagitis - Primary Esophageal reflux | + + documented in this encounter"
--- OUTSIDE RECORDS SUMMARY | ~2019-05-05 | XMS | Encounter Summary ---
Demographics + + + | Address | [address] | | | [place] [address] | + + + | Home Phone | | + + + | Preferred Language | Unknown | + + + | Marital Status | | + + + | Congregational Affiliation | Unknown | + + + | Race | Unknown | + + + | Ethnic Group | Unknown | + + + Author + + + | Author | [facility] | | | and [place] | + + + | Organization | [facility] | | | [...] [place] | | | | | [address] | | + + + + + Care Team Providers + +------+ + | Care Pneumatic Tool Operator Name | Role | Phone | + +------+ + | Davis Ivan MD | PCP | | + +------+ + Encounter Details +--------+ + + + + | Date | Type | Department | Care Team | Description | +--------+ + + + + | 08/23/ | Hospital | [facility] | Conversion | Pain | | 2013 | Encounter | [address] | Transaction, | | | | | [address] | Provider Unknown | | | | | [address] [address] | [phone] | | | | | [address] | | | | | | [phone] | | | +--------+ + + + [...] | | | | | | [place] [address] | | | | | | [phone] | | | | | | | | +--------+ + + + + | 06/08/ | Office | Physical Medicine | Rocky Santos, | | | 2019 | Visit | and Rehabilitation | MD [address] | | | | | | [place] | | | | | | [address] | | | | | | | | +--------+ + + + + | 06/16/ | Appointment | Pulmonology | Eveline Jaffe | | 2019 | | | MD [address] | | | | | | [address] | | | | | | [place] [address] | | | | | | [phone] | | | | | | | | +--------+ + + + + | 06/16/ | Office | Pulmonology | Eveline Jaffe | | | 2019 | Visit | | MD Raul [address] | | | | | | [place] [address] | | | | | | [place] [address] | | | | | | [phone] | | | | | | | | +--------+ + + + + | 08/24/ | Office | Cardiology | Anisha Lopez DO | | | 2019 | Visit | | [address] | | | | | | [place] | | | | | | [address] | | | | | | | | +--------+ + + + + documented as of this encounter Procedures + +--------+ + + + | Procedure Name | Priori | Date/Time | Associated Diagnosis | Comments | | | ty | | | | + +--------+ + + + | MRI LUMBAR SPINE WO | Routin | 03/04/2012 | | Results for this | | CONTRAST | e | 1:36 AM | | procedure are in the | | | | PDT | | results section. | + +--------+ + + + documented in this encounter Results MRI Lumbar Spine wo Contrast (03/04/2012 1:36 AM PDT) + + | Specimen | [...]
--- OUTSIDE RECORDS SUMMARY | ~2019-05-05 | XMS | Encounter Summary ---
Demographics + + + | Address | [address] | | | [place] [address] | + + + | Home Phone | | + + + | Preferred Language | Unknown | + + + | Marital Status | | + + + | Islam Affiliation | Unknown | + + + | Race | Unknown | + + + | Ethnic Group | Unknown | + + + Author + + + | Author | [facility] | | | and [place] | + + + | Organization | [facility] | | [...] [place] | | | | | [address] | | + + + + + Care Team Providers + +------+ + | Care Inspector And Clerk Name | Role | Phone | [...] | Services | Therapy | Bilateral | [place] | [facility] | | | Required | | shoulder | Matthias, | [address] | | | | | pain, | MD [address] | | | | | unspecified | [address] | [place], [place] | | | | | chronicity | [place], | [address] | | | | | | [place] | Phone: | | | | | | [address] | [phone] | | | | | | Phone: | Fax: | | | | | | [phone] | [phone] | | | | | | Fax: | | | | | | | [phone] | | +--------+ + + + + [...] | | | | is, | Jaz Gaston | [address] | | | | | unspecified | [place], | [address] [place] | | | | | shoulder | [place] [address] | [place] | | | | | | Phone: | [address] | | | | | | [phone] | Phone: | | | | | | Fax: | [phone] | | | | | | [phone] | Fax: | | | | | | | [phone] | + +--------+ + + + + Encounter Details +--------+---------+ + + + | Date | Type | Department | Care Team | Description | +--------+---------+ + + + | 11/01/ | Office | [facility] | Rodney Worthy | Bilateral shoulder | | 2019 | Visit | ORTHOPEDIC SURGERY | MD [address] | pain, unspecified | | | | [address] [facility] | [facility] | chronicity (Primary | | | | [place], [place] | [place] [place] [address] | Dx); Impingement | | | | [address] | [phone] | syndrome of left | | | | [phone] | | shoulder; | | | | [...] Medicine To relieve pain and inflammation, try [id number] pain relievers, such as acetaminophe n or [...] before the injection helps. Talk wit h yourhealthcare providerabout the possible risks and benefits of this therapy. Date Last Reviewed: 09/29/201719992751-6526 [employer]. [address] [place] [address], [place] [address]. All righ ts reserved. This information is not intended as a substitute for professional medical care. Always follow your healthcare professional's instructions. documented in this encounter Progress Notes Rodney Worthy MD - 11/01/2018 11:00 AM PDTFormatting of this note might be dif ferent from the original. [facility] HISTORY AND PHYSICAL EXAMINATION Pt. [...] her by the emergenc y room at [facility] in [place]. She reports that using her shoulder makes [...] disease Arthritis COPD (chronic obstructive pulmonary disease) ([facility]) on albuterol Depression HONG (dyspnea on exertion) Full dentures upper & lower GERD (gastroesophageal reflux disease) Hyperlipidemia on simvastatin Hypertension on clonidine and lisinopril Hypothyroidism Obesity MARCE (obstructive sleep apnea) AHI 11.6 no CPAP Osteoporosis Pneumonia 2008 hospitalized 5 days Recurrent squamous cell carcinoma of lung ([facility]) 07/11/[address] and RUL nodule Rheumatoid arthritis(714.0) [facility] Spinal stenosis has tried cortisone injections Spondylolisthesis of cervical region Sputum culture positive for Scopulariopsis species Squamous cell carcinoma of lung ([facility]) 07/2013 right lower lobe Stroke ([facility]) 2006 Stroke ([facility]) 2007 Upper GI bleed 06/[address] [facility] Past Surgical History: Procedure Laterality Date BACK SURGERY 03/2014 BLADDER SUSPENSION BRONCHOSCOPY 07/11/2014 EBUS with right hilar LN biopsy, [facility] CERVICAL SPINE SURGERY 2012 CHOLECYSTECTOMY COLONOSCOPY 06/2014 ENDOSCOPY HAND ARTHROPLASTY Left 03/20/2015 Procedure: Left 1st C.M.C. Arthroplasty; Surgeon: Giuliano Padilla MD; Location: [facility] MAIN OR HAND ARTHROPLASTY Right 10/27/2017 Procedure: Right 1st CMC Arthroplasty; Surgeon: Giuliano Padilla MD; Location: [facility] MAIN O R HYSTERECTOMY LOBECTOMY 09/16/13 right lower lobe LUNG BIOPSY 07/21/13 right lower lobe SHOULDER SURGERY SHOULDER SURGERY right shoulder THUMB SURGERY TONGUE SURGERY benign per pt TUNNELED VENOUS PORT PLACEMENT N/A 07/28/2014 Procedure: Port Placement; Surgeon: Chalino Chiu MD; Location: [facility] MAIN OR Allergies: No Known Allergies [...] non-medical: Not on file Occupational History Occupation: [employer] 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 I appreciate [...] W | | | | | | [facility] | | | | | | [place] [address] | | | | | | [phone] | | | | | | | | +--------+ + + + + | 06/08/ | Office | Physical Medicine | Rocky Santos, | | | 2019 | Visit | and Rehabilitation | [address] | | | | | | [place] | | | | | | [address] | | | | | | | | +--------+ + + + + | 06/16/ | Appointment | Pulmonology | Eveline Jaffe | | | 2019 | | | MD [address]ole [address] | | | | | | [address] [place] | | | | | | [place] [address] | | | | | | [phone] | | | | | | | | +--------+ + + + + | 06/16/ | Office | Pulmonology | Eveline Jaffe | | | 2019 | Visit | | MD [address]ole [address] | | | | | | [address] | | | | | | [place] [address] | | | | | | [phone] | | | | | | | | +--------+ + + + + | 08/24/ | Office | Cardiology | Anisha Lopez DO | | | 2019 | Visit | | [address] | | | | | | [place] | | | | | | [address] | | | | | | | [...] 11/01/2018 12:38 PM PDT CLINICAL INFORMATION: RIGHT SHERRY | | PAIN.COMPARISON: CT dated 09/03/2018 and [...] | | | | | | dose, Shayadira well. Not for IV | | | [...]
--- OUTSIDE RECORDS SUMMARY | ~2019-05-05 | XMS | Encounter Summary ---
Demographics + + + | Address | [address] | | | [place] [address] | + + + | Home Phone | | + + + | Preferred Language | Unknown | + + + | Marital Status | | + + + | Zoroastrian Affiliation | Unknown | + + + | Race | Unknown | + + + | Ethnic Group | Unknown | + + + Author + + + | Author | [facility] | | | and [place] | + + + | Organization | [facility] | | | [...] [place] | | | | | [address] | | + + + + + Care Team Providers + +------+ + | Care Ecommerce Manager Name | Role | Phone | [...] | | | hand, | | [place] [address] | | | | | unspecified | | Phone: | | | | | osteoarthrit | | [phone] | | | | | is type | | Fax: | | | | | Osteoarthrit | | [phone] | | | | | is of [...] | | | | | | | [place] [facility] | | | | | | [...] | | | | | [address] | [place] | | | | | [place] | [address] | | | | | [address] | | | | | | [phone] | | | +--------+ + + + [...] +----+---+ + + | | 1 | [place] | | | | 2 | 43-degrees | | | | 4 | | | | | 3 | | | +----+---+ + + | | 1 | | | | | 3 | | | | | 0 | | | | | 4 | | | +----+---+ + + | | 1 | [place] off | | | | 3 | [...] | 2018 | Visit | | [address] | | | | | | [facility] | | | | | | [place] [address] | | | | | | [phone] | | | | | | | | +--------+ + + + + | 06/08/ | Office | Physical Medicine | Rocky Santos, | | | 2019 | Visit | and Rehabilitation | MD [address] | | | | | | [place] | | | | | | [address] | | | | | | | | +--------+ + + + + | 06/16/ | Appointment | Pulmonology | Eveline Jaffe | | 2019 | | | MD Nichole Carter | | | | | | [address] | | | | | | [place] [address] | | | | | | [phone] | | | | | | | | +--------+ + + + + | 06/16/ | Office | Pulmonology | Eveline Jaffe | | | 2019 | Visit | | MD Nichole Carter | | | | | | [address] [place] | | | | | | [place] [address] | | | | | | [phone] | | | | | | | | +--------+ + + + + | 08/24/ | Office | Cardiology | Anisha Lopez DO | | | 2020 | Visit | | [address] | | | | | | [place] | | | | | | [address] | | | | | | | [...] Performing Provider: | | | DIANNA RANKIN Home Health Nurse: Gurmeet Sequeira MD, José Miguel Draper RN [...]
--- OUTSIDE RECORDS SUMMARY | ~2019-05-05 | XMS | Encounter Summary ---
Demographics + + + | Address | [address] | | | [place] [address] | + + + | Home Phone [...] + + | Author | [facility] | | | and [place] | + + + | Organization | [facility] | | | [...] [place] | | | | | [address] | | + + + + + Care Team Providers + +------+ + | Care Roustabout Hand Name | Role | Phone | + [...] + + + + | 08/23/ | Telephone | [facility] [place] | [place], | Medication Refill | | 2014 | | PULMONARY [address] | Ayana Looney MD | Assistance | | | | [place], | | | | | | [place] [address] | | | | | | [phone] | | | +--------+ + + + [...] | | | | | | [facility] | | | | | | [place] [address] | | | | | | [phone] | | | | | | | | +--------+ + + + + | 06/08/ | Office | Physical Medicine | Rocky Santos, | | | 2019 | Visit | and Rehabilitation | [address] | | | | | | [place] | | | | | | [address] | | | | | | | | +--------+ + + + + | 06/16/ | Appointment | Pulmonology | Eveline Jaffe | | | 2019 | | | MD [address] | | | | | | [address] | | | | | | [place], [place] [address] | | | | | | [phone] | | | | | | | | +--------+ + + + + | 06/16/ | Office | Pulmonology | Eveline Jaffe | | | 2019 | Visit | | MD [address] | | | | | | [address] [place] | | | | | | [place] [address] | | | | | | [phone] | | | | | | | | +--------+ + + + + | 08/24/ | Office | Cardiology | Anisha Lopez DO | | | 2019 | Visit | | [address] | | | | | | [place] | | | | | | [address] | | | | | | | | +--------+ + + + + documented as of this encounter Visit Diagnoses Not on filedocumented in this encounter"
--- OUTSIDE RECORDS SUMMARY | ~2019-05-05 | XMS | Encounter Summary ---
Demographics + + + | Address | [address] | | | [place] [address] | + + + | Home Phone | | + + + | Preferred Language | Unknown | + + + | Marital Status | | + + + | Yazdanism Affiliation | Unknown | + + + | Race | Unknown | + + + | Ethnic Group | Unknown | + + + Author + + + | Author | [facility] | | | and [place] | + + + | Organization | [facility] | | [...] [place] | | | | | [address] | | + + + + + Care Team Providers + +------+ + | Care Clinical Writer Name | Role | Phone | + +------+ + | Davis Ivan MD | PCP | | + +------+ + Encounter Details +--------+ + + + + | Date | Type | Department | Care Team | Description | +--------+ + + + + | 10/05/ | Hospital | [facility] | Adelita Lu MD | Squamous cell | | 2014 | Encounter | [facility] | [address] [facility] | carcinoma of lung, | | | | ONCOLOGY CLINIC [address] | [place], [place] | stage II, right | | | | [address] [facility] | [address] | (HCC) (Primary Dx) | | | | [place] [address] | [phone] | | | | | [phone] | | | +--------+ + + + [...] + + + | Blood Pressure | 87/57 | 10/05/2013 2:16 PM | | | | | PDT | | + + + + + | Pulse | 92 | 10/05/2013 2:16 PM | | | | | PDT | | + + + + + | Temperature | 36.6 C (97.9 F) | 10/05/2013 2:16 PM | | | | | PDT | | + + + + + | Respiratory Rate | - | - | | + + + + + | Oxygen Saturation | 92% | 10/05/2013 2:16 PM | | | | | PDT | | + + + + + | Inhaled Oxygen | - | - | | | Concentration | | | | + + + + + | Weight | 70 kg (154 lb 5.2 | 10/05/2013 1:43 PM | | | | oz) | PDT | | + + + + + | Height | - | - | | + + + + + | Body Mass Index | 28.23 | 09/29/2013 1:26 PM | | | | | PDT [...] + + + +---------+ + + | ciprofloxacin | Take 1 tablet by | 14 | 0 | 10/06/19 | | | (CIPRO) 500 mg | mouth 2 times daily | tablet | | 14 | 4 | | tabletIndications: | for 10 days. | | | | | | Squamous cell | | | | | | | carcinoma of lung, | | | | | | | stage II, right | | | | | | | (HCC) | | | | | | [...] by mouth | | 0 | | 06/08/201 | | (SYNTHROID) 100 mcg | every [...] encounter Progress Notes Adelita Lu MD - 10/05/2013 2:13 PM PDT Hem-Onc Progress Note [facility] Patient name:Thea Carmona : 1945 Age: 68 y.o. CSN: [id number] Date of Service: 10/05/2013 Identifying Statement: Thea Carmona is a 68 y.o. female from [facility] with clinical stage II, pathologic stage IB [...] lewis 2.CT-guided biopsy by interventional radiology at [facility] of the right lung massshows [...] by Dr. Mace , thoracic surgeon at [facility] for consideration of broncho scopy, right [...] lymph nodes negative for malignancy, [id number], stage IB Chief Complaint/HPI: Here for regular followup after right lower lobe lobectomy and lymphad enectomy Current Review of Systems: Constitutional: Reports fatigue. Denies high fevers, shaking chills, vomiting, weight loss, or night sweats. Patient reports having a poor appetite. Ear, Nose, Mouth, Throat: Denies odynophagia, dysphagia, or tinnitus. Cardiovascular:Denies, chest pain, palpitations or orthopnea. Pt reports she experiences sh ortness of breath with exertion. Respiratory: Denies , hemoptysis. Pt reports this week she has been coughing up green sputu m. Gastrointestinal: Denies abdominal pain and, diarrhea. Reports of constipation has been thi s way for the last four days. Pt states having hemrrhoids and has found red blood in here st ools. Genitourinary: Denies hematuria or dysuria. Musculoskeletal: Reports joint pain or tenderness. Neurologic: Denies headache, visual changes, or numbness/tingling of the extremities. Patie nt states the last few months her vision is getting worst. Endocrine: Denies peripheral edema or heat/cold intolerance. Hematologic: Patient reports bruising and bleeding. Pain: Pt states having lower back pain and on her left side where she had surgery she rates it at a 6/10 with medication and with out she rates it at a 9-10/10 Past Medical History: Past Medical History Diagnosis Date COPD (chronic obstructive pulmonary disease) ([facility]) on albuterol Spondylolisthesis of cervical region Spinal stenosis has tried cortisone injections Osteoporosis Depression Pneumonia 2009 hospitalized 5 days Rheumatoid arthritis(714.0) ([facility]) [facility] Hyperlipidemia on simvastatin Hypertension on clonidine and lisinopril Hypothyroidism GERD (gastroesophageal reflux disease) Stroke ([facility]) 2006 Stroke ([facility]) 2007 Squamous cell carcinoma of lung ([facility]) 07/2013 MARCE (obstructive sleep apnea) AHI 11.6 Sputum culture positive for Scopulariopsis species Allergies: No Known Allergies Medications : Patient's Medications New Prescriptions CIPROFLOXACIN (CIPRO) 500 MG TABLET Take 1 tablet by mouth 2 times daily for 10 days. Previous Medications ALBUTEROL 2.5 MG/3 ML NEBULIZER SOLUTION Take 2.5 mg by nebulization every 6 hours as n eeded. ASPIRIN 81 MG TABLET Take 81 mg by mouth Daily. BUDESONIDE-FORMOTEROL (SYMBICORT) 160-4.5 MCG/PUFF INHALER Inhale 2 puffs into the lung s 2 times daily. CHOLECALCIFEROL (VITAMIN D-3) 1,000 UNITS CAPSULE Take 1,000 Units by mouth Daily. CLONIDINE (CATAPRES) 0.1 MG TABLET Take 0.1 mg by mouth 2 times daily. CLOPIDOGREL (PLAVIX) 75 MG TABLET Take 75 [...] by mouth every morning (before deshaun akfast). LISINOPRIL (PRINIVIL, ZESTRIL) 10 MG TABLET Take 30 mg by mouth Daily. MAGNESIUM 100 MG CAPS Take by mouth Daily. METHOTREXATE 2.5 MG TABLET Take 25 mg by mouth Once a week. OMEPRAZOLE (PRILOSEC) 20 MG CAPSULE Take 20 mg by mouth Twice daily breakfast/Bedtime. POTASSIUM GLUCONATE Take 1 tablet by mouth Daily. PREDNISONE (DELTASONE) 5 MG TABLET Take 10 mg by mouth Daily. RESPIRATORY THERAPY SUPPLIES [facility]Med S9 auto CPAP 5-9 cm H2O. Heater and Humidifier . All necessary supplies. AHI 11.6. Diagnosis Code(s)327.23, also has co morbid hypertension , history of stroke. Length of Need 99 months. Please send order to [facility]. SIMVASTATIN (ZOCOR) 40 MG TABLET Take 40 mg by mouth nightly. VENLAFAXINE (EFFEXOR) 75 MG TABLET Take 37.5 mg by mouth 2 times daily. Modified Medications No medications on file Discontinued Medications No medications on file Physical Exam: Vitals:Temp: [36.6 C (97.9 F)] 36.6 C (97.9 F) Pulse: [92] 92 BP: (87)/(57) 87/57 mmHg Gen.: Performance status ECoG 1 . Well nourished, appears well not in apparent distress.. and a wheelchair today Chest: Clear to auscultation. Cardiac: S1-S2 present regular rate rhythm. No murmur rub gallop.. Extremities: No edema, cyanosis, clubbing. Skin: Multiple bruises which are baseline LABORATORY DATA: No results found for this or any previous visit (from the past 24 hour(s) ). 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 It is definitely indicated in stage II disease, 10-15% overall b enefit. Stage IB patients are benefited if the tumor size is more than 4 cm In her case , the risk of giving chemotherapy are more than the benefits and she has a hist ory of long-term immunosuppression on prednisone and methotrexate for rheumatoid arthritis a nd also has a history of rare fungus isolated from the lung Sputum cultures grew rare fungus Scopulariopsis sp. And lewis in the past. Continue to monitor her every [address] scan to followup on the left lung nodule. Total time face to face discussion with the patient and family was 30 minutes, more than 5 0% of the time was spent counseling and coordination of care. Adelita Lu MD Portions of this chart may have been created with Dragon voice recognition software. Occasi onal wrong-word or sound-alike substitutions may have occurred due to the inherent guzman itations of voice recognition software. Please read the chart carefully and recognize, using context, where these substitutions have occurred. Tess Arguello CMA - 10/05/2013 1:52 PM PDTREVIEW OF SYSTEMS Constitutional: Reports fatigue. Denies high fevers, shaking chills, vomiting, weight loss, or night sweats. Patient reports having a poor appetite. Ear, Nose, Mouth, Throat: Denies odynophagia, dysphagia, or tinnitus. Cardiovascular:Denies, chest pain, palpitations or orthopnea. Pt reports she experiences s hortness of breath with exertion. Respiratory: Denies , hemoptysis. Pt reports this week she has been coughing up green sputu m. Gastrointestinal: Denies abdominal pain and, diarrhea. Reports of constipation has been th is way for the last four days. Pt states having hemrrhoids and has found red blood in here stools. Genitourinary: Denies hematuria or dysuria. Musculoskeletal: Reports joint pain or tenderness. Neurologic: Denies headache, visual changes, or numbness/tingling of the extremities. Patie nt states the last few months her vision is getting worst. Endocrine: Denies peripheral edema or heat/cold intolerance. Hematologic: Patient reports bruising and bleeding. Pain: Pt states having lower back pain and on her left side where she had surgery she rates it at a 6/10 with medication and with out she rates it at a 9-10/10. documented in this encounter Plan of Treatment +--------+ + + + + | Date | Type | Specialty | Care Team | Description | +--------+ + + + + | 05/30/ | Office | Rheumatology | KimSantosh hollis, | | | 2018 | Visit | | [address] | | | | | | [place] | | | | | | [place] [address] | | | | | | [phone] | | | | | | | | +--------+ + + + + | 06/08/ | Office | Physical Medicine | Rocky Santos, | | | 2019 | Visit | and Rehabilitation | MD Nichole Landis | | | | | | [place] | | | | | | [address] | | | | | | | | +--------+ + + + + | 06/16/ | Appointment | Pulmonology | Eveline Jaffe | | | 2019 | | | MD [address] | | | | | | [address] | | | | | | [place] [address] | | | | | | [phone] | | | | | | | | +--------+ + + + + | 06/16/ | Office | Pulmonology | Eveline Jaffe | | | 2019 | Visit | | MD Raul [address] | | | | | | [address] | | | | | | [place] [address] | | | | | | [phone] | | | | | | | | +--------+ + + + + | 08/24/ | Office | Cardiology | Anisha Lopez DO | | | 2019 | Visit | | [address] | | | | | | [place] | | | | | | [phone] | | | | | | | | +--------+ + + + + + +------+--------+ + + | Name | Type | Priori | Associated Diagnoses | Order Schedule | | | | ty | | | + +------+--------+ + + | CBC with | Lab | STAT | Squamous cell | Every 12 weeks for | | Differential | | | carcinoma of lung, | 25 Occurrences | | | | | stage II, right | starting 10/05/2013 | | | | | (HCC) | until 10/05/2014, 1 | | | | | | completed | + +------+--------+ + + | Comprehensive | Lab | STAT | Squamous cell | Every 12 weeks for | | Metabolic Panel | | | carcinoma of lung, | 25 Occurrences | | | | | stage II, right | starting 10/05/2013 | | | | | (HCC) | until 10/05/2014, 1 | | | | | | completed | + +------+--------+ + + documented as of this encounter Results Comprehensive Metabolic Panel (01/09/2014 2:29 PM PDT) + + + + + [...] + + + + | CO2 | 21 (L) | 24 - 31 mmol/L | [facility] | [facility] - | | | | | | LABORATORY | | + + + + + + | Anion Gap | 11 | 3 - 16 mmol/L | [facility] | | | | [facility] - | | | | | | LABORATORY | | + + + + + + | Glucose | 116 (H) | 70 - 109 mg/dL | [facility] | | [facility] | [facility] | | | | | | [facility] - | | | | | | LABORATORY | | + + + + + + | BUN | 9 | 7 - 18 mg/dL | [facility] | [facility] | | | | | | [facility] - | | | | | | LABORATORY | | + + + + + + | Creatinine | 0.78 | 0.60 - 1.30 | [facility] | | | | | mg/dL | [facility] | | | | | | MEDICAL | | | | | | CENTER - | | | | | | LABORATORY | | + + + + + + | eGFR if not | >60Comment: GLOMERULAR | >=60 | [facility] | | | | FILTRATION | mL/min/1.73m2 | [facility] | | | BURUNDIAN | RATE,ESTIMATED | | MEDICAL | | | | mL/min/1.27t1Qktv than | | CENTER - | | [...] | | | | | mg/dL | [facility] | | | | | | MEDICAL | | | | | | CENTER - | | | | | | LABORATORY | | + + + + + + | Albumin | 3.1 (L) | 3.2 - 5.0 g/dL | [...] + + + + | ALT | 16 | 6 - 45 U/L | [facility] | [facility] | [facility] | | | | | | CENTER - | | | | | | LABORATORY | | + + + + + + | Alkaline | 57 | 40 - 110 U/L | [facility] | | | Phosphatase | | | [facility] | | | | | | [facility]ICAL | | | | | | CENTER - | | | | | | LABORATORY | | + + + + + + | Globulin | 3.3 | g/dL | [facility] | | | [facility] | | | | | | [facility] | | | | | | CENTER - | | | | | | LABORATORY | | + + + + + + | Albumin/Mattie | 0.9 | | [facility] | | | bulin Ratio | | | [facility] | | | | | | [facility]ICAL | | | | | | CENTER - | | | | | | LABORATORY | | + + + + + + | BUN/Creatin | 11.5 | | [facility] | | | ine [...] + | [facility] | [address] | [place] | [phone] | | [facility] | | [address] | | | - LABORATORY | | | | + + + + + | [facility] | [address] | [place], [place] | | | [facility] | | [address] | | | - LABORATORY | | | | + + + + + CBC with Differential (01/09/2014 2:29 PM PDT) + + + + + + | Component | Value | Ref Range | Performed | Pathologist | | | | | At | Signature | + + + + + + | WBC | 5.5 | 4.0 - 11.0 K/uL | [facility] | [facility] | [facility] | | | | | | [facility]ICAL | | | | | | CENTER - | | | | | | LABORATORY | | + + + + + + | RBC | 4.22 | 3.70 - 5.20 | [facility] | | | | | M/uL | [facility] | | | | | | [facility] | | | | | | CENTER - | | | | | | LABORATORY | | + + + + + + | Hemoglobin | 12.1 | 11.5 - 16.0 | [facility] | | | | | g/dL | [facility] | | | | | | MEDICAL | | | | | | CENTER - | | | | | | LABORATORY | | + + + + + + | Hematocrit | 38.0 | 34.0 - 47.0 % | [facility] | | | | | [facility] | | | [facility] | | [facility] | | | | | | C[facility] - | | | | | | LABORATORY | | + + + + + + | MCV | 90.0 | 83.0 - 101.0 fL | [facility] | | | [facility] | | | [facility] | [facility] | | | | | | CENTER - | | | | | | LABORATORY | | + + + + + + | MCH | 28.5 | 28.0 - 35.0 pg | [facility] | | | | | [facility] | | | | | | [facility] | | | | | | CENTER - | | | | | | LABORATORY | | + + + + + + | MCHC | 31.7 (L) | 32.0 - 36.0 | [facility] | | | | | g/dL | [facility] | | | | | | [facility] | | | | | | CENTER - | | | | | | LABORATORY | | + + + + + + | RDW-CV | 19.5 (H) | <15.0 % | [facility] | | | | | [facility] | | | | | | [facility]ICAL | | | | | | CENTER - | | | | | | LABORATORY | | + + + + + + | Platelet | 221 | 140 - 440 K/uL | [facility] [...] + + + + | % | 75.6 | 45.0 - 82.0 % | [facility] | | | Neutrophils | | | [facility] | | | | | | MEDICAL | | | | | | CENTER - | | | | | | LABORATORY | | + + + + + + | % | 14.3 (L) | 20.0 - 45.0 % | [facility] | | | Lymphocytes | | | [facility] | | | | | | MEDICAL | | | | | | CENTER - | | | | | | LABORATORY | | + + + + + + | % Monocytes | 7.6 | 4.0 - 12.0 % | [facility] | | | | | | [facility] | | | | | | [facility]ICAL | | | | | | CENTER - | | | | | | LABORATORY | | + + + + + + | % | 1.7 | 0.0 - 5.0 % | [facility] | | | Eosinophils | | | [facility] | | | | | | MEDICAL | | | | | | CENTER - | | | | | | LABORATORY | | + + + + + + | % Basophils | 0.8 | 0.0 - 1.0 % | [facility] | | | | | | [facility] | | | | | | MEDICAL | | | | | | CENTER - | | | | | | LABORATORY | | + + + + + + | Absolute | 4.20 | 1.80 - 8.50 | [facility] | | | Neutrophils | | K/uL | [facility] | | | | | | MEDICAL | | | | | | CENTER - | | | | | | LABORATORY | | + + + + + + | Absolute | 0.80 | 0.60 - 3.20 | [facility] | [...] + | [facility] | [address] | [place] | [phone] | | [facility] | | [address] | | | - LABORATORY | | | | + + + + + | [facility] | [address] | [place] | | | [facility] | | [address] | | | - LABORATORY | | | | + + + + + documented in this encounter Visit Diagnoses + + | Diagnosis | + + | Squamous cell carcinoma of lung, stage II, right (HCC) - Primary | + + documented in this encounter"
--- OUTSIDE RECORDS SUMMARY | ~2019-05-05 | XMS | Encounter Summary ---
Demographics + + + | Address | [address] | | | [place] [address] | + + + | Home Phone | | + + + | Preferred Language | Unknown | + + + | Marital Status | | + + + | Protestant Affiliation | Unknown | + + + [...] [place] | | | | | [address] | | + + + + + Care Team Providers + +------+ + | Care Baler Name | Role | Phone | + +------+ + | Caitlin Chino MD | PCP | | + +------+ + Encounter Details +--------+ + + + + | Date | Type | Department | Care Team | Description | +--------+ + + + + | 10/28/ | Orders Only | [facility] | Santosh Sumner, | | | 2019 | | [address] [facility] | [address] | | | | | [place], [place] | [facility] | | | | | [address] | [place] [address] | | | | | [phone] | [phone] | | | | | | | [...] | | | | | [place] [address] | | | | | | [phone] | | | | | | | | +--------+ + + + + | 06/08/ | Office | Physical Medicine | Rocky Santos, | | | 2019 | Visit | and Rehabilitation | MD Nichole Landis | | | | | | [place] | | | | | | [address] | | | | | | | | +--------+ + + + + | 06/16/ | Appointment | Pulmonology | Eveline Jaffe | | 2019 | | | MD [address]ole [address] | | | | | | [address] [place] | | | | | | [place] [address] | | | | | | [phone] | | | | | | | | +--------+ + + + + | 06/16/ | Office | Pulmonology | Eveline Jaffe | | | 2019 | Visit | | MD Raul [address] | | | | | | [address] | | | | | | [place] [address] | | | | | | [phone] | | | | | | | | +--------+ + + + + | 08/24/ | Office | Cardiology | Anisha Lopez DO | | | 2019 | Visit | | [address] | | | | | | [place] | | | | | | [address] | | | | | | | [...]
--- OUTSIDE RECORDS SUMMARY | ~2019-05-05 | XMS | Encounter Summary ---
Demographics + + + | Address | [address] | | | [place] [address] | + + + | Home Phone | | + + + | Preferred Language | Unknown | + + + | Marital Status | | + + + | Zoroastrianism Affiliation | Unknown | + + + | Race | Unknown | + + + | Ethnic Group | Unknown | + + + Author + + + | Author | [facility] | | | and [place] | + + + | Organization | [facility] | | [...] [place] | | | | | [address] | | + + + + + Care Team Providers + +------+ + | Care Market Maker Name | Role | Phone | [...] | 10/07/ | Telephone | [facility] | Adelita Lu MD | Other | | 2013 | | [facility] | [address] [facility] | | | | | [facility] CL[facility] [address] | [place] | | | | | [address] [facility] | [address] | | | | | [place] [address] | [phone] | | | | | [phone] | | | +--------+ + + + [...] W | | | | | | [facility] | | | | | | [place] [address] | | | | | | [phone] | | | | | | | | +--------+ + + + + | 06/08/ | Office | Physical Medicine | Rocky Santos, | | | 2019 | Visit | and Rehabilitation | [address] | | | | | | [place] | | | | | | [address] | | | | | | | | +--------+ + + + + | 06/16/ | Appointment | Pulmonology | Eveline Jaffe | | | 2019 | | | MD Nichole [address] | | | | | | [address] [place] | | | | | | [place] [address] | | | | | | [phone] | | | | | | | | +--------+ + + + + | 06/16/ | Office | Pulmonology | Eveline Jaffe | | | 2019 | Visit | | MD Nichole Carter [address] | | | | | | [address] | | | | | | [place] [address] | | | | | | [phone] | | | | | | | | +--------+ + + + + | 08/24/ | Office | Cardiology | Anisha Lopez DO | | | 2019 | Visit | | [address] | | | | | | [place] | | | | | | [address] | | | | | | | | +--------+ + + + + documented as of this encounter Visit Diagnoses Not on filedocumented in this encounter"
--- OUTSIDE RECORDS SUMMARY | ~2019-05-05 | XMS | Encounter Summary ---
Demographics + + + | Address | [address] | | | [place] [address] | + + + | Home Phone | | + + + | Preferred Language | Unknown | + + + | Marital Status | | + + + | Uatsdin Affiliation | Unknown | + + + [...] [place] | | | | | [address] | | + + + + + Care Team Providers + +------+ + | Care Zyglo Technician Name | Role | Phone | [...] Description | +--------+---------+ + + + | 06/09/ | Office | [facility] [place] | [place], | Pulmonary nodule | | 2013 | Visit | PULMONARY [address] | Ayana Looney MD | (Primary Dx); | | | | [place], | | Rheumatoid arthritis | | | | [place] [id number] | | ([facility]); Snoring | | | | [phone] | | | +--------+---------+ + + + [...] + | Blood Pressure | 116/64 | 06/09/2013 1:32 PM | | | | | PST | | + + + + + | Pulse | 72 | 06/09/2013 1:32 PM | | | | | PST | | + + + + + | Temperature | - | - | | + + + + + | Respiratory Rate | - | - | | + + + + + | Oxygen Saturation | 99% | 06/09/2013 1:32 PM | | | | | PST | | + + + + + | Inhaled Oxygen | - | - | | | Concentration | | | | + + + + + | Weight | 72.3 kg (159 lb 8 | 06/09/2013 1:32 PM | | | | oz) | PST | | + + + + + | Height | 157.5 cm (5' 2") | 06/09/2013 1:32 PM | | | | | PST | | + + + + + | Body Mass Index | 29.17 | 06/09/2013 1:32 PM | | | | | PST | | + + + + + documented in this encounter Patient Instructions Patient Instructions Ayana Taylor MD - 06/09/2013 2:09 PM PSTI will talk to Dr. Boggs about the culture results and what he thinks we need to do for treatment, or if we cintron ve to do a biopsy first. If he feels we need to do a biopsy first, we will order this, and y ou will need to hold aspirin and clopidogrel for one week prior. In the meantime, get the sleep study done, as this is also important. documented in this encounter Progress Notes Ayana Taylor MD - 06/09/2013 1:53 PM PSTFormatting of this note might be differe nt from the original. Pulmonary Follow Up MD Lien Garciaa [place] [address] [place], [address] HPI Thea Carmona is a 68 y.o. female patient of Davis Ivan here today for follo w up of a cavitary pulmonary nodule. Repeat CT chest was done today, and shows enlargement of this nodule. Her fungal sputum cul ture recently grew SCOPULARIOPSIS SPECIES from her sputum in addition to the lewis. She notes that she sleeps all the time during the day. She does not sleep well at night as she sleeps all day. She does snore at night, though her is unsure if she has apneas. He does not share a bed with her. There have been a few times when he thinks she is not deshaun athing and he thinks about calling an ambulance. She did get an appointment to undergo the s leep study, later this month. She does cough quite a bit, and does produce sputum that she describes as icky, or brownish . Sometimes it is clear. Past Medical History Past Medical History Diagnosis Date COPD (chronic obstructive pulmonary disease) on albuterol Spondylolisthesis of cervical region Spinal stenosis Osteoporosis Depression Pneumonia 2009 hospitalized 5 days Rheumatoid arthritis on prednisone and methotrexate, Dr. 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 Social History Main Topics Smoking status: Former Smoker -- 1.0 packs/day for 50 years Types: Cigarettes Quit date: 08/21/2012 Smokeless tobacco: None Alcohol Use: No Drug Use: No Comment: marijuana in the remote past Sexually Active: None Other Topics Concern None Social History Narrative Lives: in [place] With: aloneGrew up: in [place] previously lived in: [place]posure t o toxic chemicals: noExposure to asbestos: noExposure to tuberculosis: no Has had a PPD or Q uantiferon before: noHas pets at home: cat and a dog Has ever owned birds: yes, 5 years ago Other animal exposures: noHobbies: used to jaja, crossword puzzles, walking her dog Allergies: No Known Allergies Medications: Outpatient Encounter Prescriptions as of 06/09/2013 Medication Sig Dispense Refill albuterol 2.5 mg/3 [...] by mouth 2 times daily. Objective BP 116/64 | Pulse 72 | Ht 1.575 m (5' 2") | Wt 72.349 kg (159 lb 8 oz) | BMI 29.17 kg/m2 | SpO2 99% RA General Appearance: Alert, cooperative, no distress, appears stated age, chronically ill a ppearing Head: Normocephalic, without obvious abnormality, atraumatic Eyes: PERRL, conjunctiva clear, no scleral icterus, EOM's intact Ears: Normal TM's, external auditory canals, normal acuity Nose: Nares normal, septum midline, mucosa normal Mouth: No oral lesions or exudate Neck: C spine collar in place, not removed for exam Lungs: No accessory muscle use, breath sounds are somewhat diminsihed bilaterally, no whe ezes, crackles, some scattered rhonchi Chest Wall: No deformity Heart: Regular rate and rhythm, no murmur, rub or gallop Abdomen: Soft, non-tender, non-distended Extremities: No cyanosis, clubbing, or edema Pulses: Radial pulses 2+ and symmetric Skin: Warm and dry Lymph nodes: Cervical and supraclavicular nodes normal Data: Chest CT scan was done prior to clinic today and was reviewed and interpreted in clinic topraveena byrnes. It shows enlargement of the previously seen cavitary nodule. Hospital Outpatient Visit on 04/13/2013 Component Date Value ALK PHOS 04/13/2013 78 AST 04/13/2013 38 ALT 04/13/2013 37 BILIRUBIN TOTAL 04/13/2013 0.6 BILIRUBIN DIRECT 04/13/2013 <0.1 BILIRUBIN INDIRECT 04/13/2013 0.5 Total protein 04/13/2013 6.7 ALBUMIN 04/13/2013 2.6* CULTURE FUNGAL WOUND: SENT FUNGUS (4+ GROWTH) TO REFERENCE LAB TO ID. Sent out for confirmation and ID. Final results pending. Organism Type: LEWIS ALBICANS CULTURE FUNGAL WOUND: QUANTITY RARE Organism Type: SCOPULARIOPSIS SPECIES Immunization History Administered Date(s) Administered INFLUENZA, PRESERVATIVE FREE IM 03/22/2013 Pneumococcal (Adult) 03/01/2011 Assessment 1. Pulmonary nodule - Enlarging on CT scan today. High concern for this fungal species, [facility] seems to have limited data for treatment, and that available seems to suggest few medicat ions are very effective. I am going to consult with the ID specialist at [place] regard ing best approaches, and if we should rely on the sputum culture, or if we should try to do a biopsy. I again reviewed risks of a biopsy. With her cervical spine surgery, osteoporosis, history of RA, and use of chronic pain and anxiety medications, she would have some increased risk o f having respiratory problems from sedation, and if so, intubation would be more challenging . 2. Rheumatoid arthritis - Immunosuppressed on methotrexate and prednisone. 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 This may be a blessing given the fungal inf ection she presumably has. 3. Snoring - Due to have a sleep study later this month. Plan 1.Discuss case with Dr. Boggs, I have emailed him the details. 2.Sleep study scheduled for 06/23. She was advised to call if new pulmonary symptoms were to develop. 25 minutes were spent with Ms. Carmona and her with greater than 50% spent in couns eling and coordination of care regarding discussing her CT scan and culture results, and edwin iling Dr. Boggs. Return to clinic TBD based on Dr. Boggs's recommendations. CC: MD Rodney Bernard MD Portions of this report were transcribed using voice recognition software. Every effort wa s made to ensure accuracy; however, inadvertent computerized prick stitcher errors may be pre sent. documented in t his encounter Plan of Treatment +--------+ + + + + | Date | Type | Specialty | Care Team | Description | +--------+ + + + + | 05/30/ | Office | Rheumatology | Santosh Sumner, | | | 2018 | Visit | | [address] | | | | | | [facility] | | | | | | [place] [address] | | | | | | [phone] | | | | | | | | +--------+ + + + + | 06/08/ | Office | Physical Medicine | Rocky Santos, | | | 2019 | Visit | and Rehabilitation | MD Nichole [address] | | | | | | [place] | | | | | | [address] | | | | | | | | +--------+ + + + + | 06/16/ | Appointment | Pulmonology | Eveline Jaffe | | | 2019 | | | MD Nichole Carter | | | | | | [address] [place] | | | | | | [place] [address] | | | | | | [phone] | | | | | | | | +--------+ + + + + | 06/16/ | Office | Pulmonology | Eveline Jaffe | | | 2019 | Visit | | MD [address]ole [address] | | | | | | [address] [place] | | | | | | [place] [address] | | | | | | [phone] | | | | | | | | +--------+ + + + + | 08/24/ | Office | Cardiology | Anisha Lopez DO | | | 2019 | Visit | | [address] | | | | | | [place], [place] | | | | | | [address] | | | | | | | | +--------+ + + + + documented as of this encounter Visit Diagnoses + + | Diagnosis | + + | Pulmonary nodule - Primary Solitary pulmonary nodule | + + | Rheumatoid arthritis(714.0) Rheumatoid arthritis | + + | Snoring Other dyspnea and respiratory abnormality | + + documented in this encounter
--- OUTSIDE RECORDS SUMMARY | ~2019-05-05 | XMS | Encounter Summary ---
Demographics + + + | Address | [address] | | | [place] [address] | + + + | Home Phone | | + + + | Preferred Language | Unknown | + + + | Marital Status | | + + + | Rastafari Affiliation | Unknown | + + + [...] [place] | | | | | [address] | | + + + + + Care Team Providers + +------+ + | Care Sales Superintendent Name | Role | Phone | + [...] | is of left | | [place], | | | | | hand, | | [place] [address] | | | | | unspecified | | Phone: | | | | | osteoarthrit | | [phone] | | | | | is type | | Fax: | | | | | Osteoarthrit | | [phone] | | | | | is of [...] | | | | | | | CO REPAIR | | | | | | | INTERCARP/CA | | | | | | | RP-METACARP | | | | | | | JT | | | +--------+--------+ + + + + Encounter Details +--------+ + + + + | Date | Type | Department | Care Team | Description | +--------+ + + + + | 03/20/ | Hospital | [facility] | Giuliano Padilla, | | | 2014 | Encounter | MED CTR XRAY [address] | [address] [facility] | | | | | [place] | [place] | | | | | [place] [address] | [address] | | | | | [phone] | | | +--------+ + + + [...] | 2018 | Visit | | [address] | | | | | | [address] | | | | | | [place] [address] | | | | | | [phone] | | | | | | | | +--------+ + + + + | 06/08/ | Office | Physical Medicine | Rocky Santos, | | | 2019 | Visit | and Rehabilitation | MD [address] | | | | | | [place] | | | | | | [address] | | | | | | | | +--------+ + + + + | 06/16/ | Appointment | Pulmonology | Eveline Jaffe | | | 2019 | | | MD [address]ole [address] | | | | | | [address] [address] | | | | | | [place] [address] | | | | | | [phone] | | | | | | | | +--------+ + + + + | 06/16/ | Office | Pulmonology | Eveline Jaffe | | | 2019 | Visit | | Sherrin, MD [address] | | | | | | [place] [address] [place] | | | | | | [place] [address] | | | | | | [phone] | | | | | | | | +--------+ + + + + | 08/24/ | Office | Cardiology | Anisha Lopez DO | | | 2019 | Visit | | [address] | | | | | | [place] | | | | | | [address] | | | | | | | [...] + documented in this encounter Results SHEFALI C-Arm Stats No Charge (03/20/2015 1:22 PM [...]
--- OUTSIDE RECORDS SUMMARY | ~2019-05-05 | XMS | Encounter Summary ---
Demographics + + + | Address | [address] | | | [place] [address] | + + + | Home Phone [...] [place] | | | | | [address] | | + + + + + Care Team Providers + +------+ + | Care Manager Residential Name | Role | Phone | + [...] | carcinoma of | [place], | [place], | | | | | lung, right | [place] | [place] [address] | | | | | (HCC) | [address] | Phone: | | | | | | Phone: | [phone] | | | | | | [phone] | Fax: | | | | | | Fax: | [phone] | | | | | | [phone] | | +--------+ + + + + + Encounter Details +--------+ + + + + | Date | Type | Department | Care Team | Description | +--------+ + + + + | 07/25/ | Hospital | [facility] | Adelita Lu MD | Recurrent squamous | | 2015 | Encounter | MED CTR MEDICAL | [address] [facility] | cell carcinoma of | | | | ONCOLOGY CLINIC [address] | [place] | lung, unspecified | | | | [address] [facility] | [address] | laterality (HCC) | | | | [place] [address] | [phone] | (Primary Dx); | | | | [phone] | | Recurrent squamous | | | [...] 07/25/2014 2:40 PM PST Hem-Onc Progress Note [facility] Patient name:Thea Carmona : 1945 Age: 69 y.o. CSN: [id number] Date of Service: 07/25/2014 Identifying Statement: Thea Carmona is a 69 y.o. female from [facility] with clinical stage II, pathologic stage IB [...] lewis 2.CT-guided biopsy by interventional radiology at [facility] of the right lung massshows [...] by Dr. Mace , thoracic surgeon at [facility] for consideration of broncho scopy, right [...] COPD (chronic obstructive pulmonary disease) ([facility]) on albuterol Spondylolisthesis of cervical region Spinal stenosis has tried cortisone injections Osteoporosis Depression Pneumonia 2009 hospitalized 5 days Rheumatoid arthritis(714.0) ([facility]) 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 RESPIRATORY THERAPY SUPPLIES [facility] ResMed S9 auto CPAP 5-9 cm H2O. Heater and Humidifier . All necessary supplies. AHI 11.6. Diagnosis Code(s)327.23, also has co morbid hypertension , history of stroke. Length of Need 99 months. Please send order to [facility]. RESPIRATORY THERAPY SUPPLIES [employer] Respironics autotitrating CPAP at 5-9 cm H2O [...] >=60 mL/min/1.73m2 Imaging: PET/CT scan June 2014: [facility]: Necrotic right lung lesion wit h [...] to proceed port placement .all records from [facility] were reviewed Total time face to face discussion with the patient and family was 45 minutes, more than 5 0% of the time was spent counseling and coordination of care. Adelita Lu MD Portions of this chart may have been created with [employer] voice recognition software. Occasi onal wrong-word or [...] | | | | | [place] [address] | | | | | | [phone] | | | | | | | | +--------+ + + + + | 06/08/ | Office | Physical Medicine | Rocky Santos, | | | 2019 | Visit | and Rehabilitation | [address] | | | | | | [place] | | | | | | [address] | | | | | | | | +--------+ + + + + | 06/16/ | Appointment | Pulmonology | Eveline Jaffe | | | 2019 | | | MD [address] | | | | | | [address] [place] | | | | | | [place] [address] | | | | | | [phone] | | | | | | | | +--------+ + + + + | 06/16/ | Office | Pulmonology | Eveline Jaffe | | | 2019 | Visit | | MD Nichole [address] | | | | | | [address] [place] | | | | | | [place] [address] | | | | | | [phone] | | | | | | | | +--------+ + + + + | 08/24/ | Office | Cardiology | Anisha Lopez DO | | | 2019 | Visit | | [address] | | | | | | [place] | | | | | | [address] | | | | | | | [...] mL/min/1.73m2 | [facility] | | | [facility] | | | MEDICAL | | | [...] + | [facility] | [address] | [place] | [phone] | | [facility] | | [address] | | | - LABORATORY | | | | + + + + + | [facility] | [address] | [place] | | | [facility] | | [address] | | | - LABORATORY | | [...] + + | Performing | Address | City/[facility]/Zipcode | Phone Number | | Organization | | | | + + + + + | [facility] | [address] | [place], [place] | [phone] | | [facility] | | [address] | | | - LABORATORY | | | | + + + + + | [facility] | [address] | [place], [place] | | | [facility] | | [address] | | | - LABORATORY | | [...]
--- OUTSIDE RECORDS SUMMARY | ~2019-05-05 | XMS | Encounter Summary ---
Demographics + + + | Address | [address] | | | [place] [address] | + + + | Home Phone [...] [place] | | | | | [address] | | + + + + + Care Team Providers + +------+ + | Care Local Az Truck Driver Name | Role | Phone | + +------+ + | Davis Ivan MD | PCP | | + +------+ + Encounter Details +--------+ + + + + | Date | Type | Department | Care Team | Description | +--------+ + + + + | 08/11/ | Hospital | [facility] GENER[facility] IP | Conversion | Pain | | 2014 | Encounter | CONVERSION [address]P [address] | Transaction, | | | | | [address] | Provider Unknown | | | | | [place] | [phone] | | | | | [address] | | | | | | [phone] | | | +--------+ + + + [...] | 2018 | Visit | | [address] | | | | | | [place] | | | | | | [place] [address] | | | | | | [phone] | | | | | | | | +--------+ + + + + | 06/08/ | Office | Physical Medicine | Rocky Santos, | | | 2019 | Visit | and Rehabilitation | MD [address] | | | | | | [place] | | | | | | [address] | | | | | | | | +--------+ + + + + | 06/16/ | Appointment | Pulmonology | Eveline Jaffe | | | 2019 | | | MD [address] | | | | | | [address] [place] | | | | | | [place] [address] | | | | | | [phone] | | | | | | | | +--------+ + + + + | 06/16/ | Office | Pulmonology | Eveline Jaffe | | | 2019 | Visit | | MD [address] | | | | | | [address] [place] | | | | | | [place] [address] | | | | | | [phone] | | | | | | | | +--------+ + + + + | 08/24/ | Office | Cardiology | Anisha Lopez DO | | | 2019 | Visit | | [address] | | | | | | [place] | | | | | | [address] | | | | | | | | +--------+ + + + + documented as of this encounter Procedures + +--------+ + + + | Procedure Name | Priori | Date/Time | Associated Diagnosis | Comments | | | ty | | | | + +--------+ + + + | NM BONE SCAN WHOLE | Routin | 02/23/2012 | | Results for this | | BODY | e | 3:44 AM | | procedure are in the | | | | PDT | | results section. | + +--------+ + + + documented in this encounter Results NM Bone Scan Whole Body (02/23/2012 3:44 AM PDT) + + | Specimen | [...]
--- OUTSIDE RECORDS SUMMARY | ~2019-05-05 | XMS | Encounter Summary ---
Demographics + + + | Address | [address] | | | [place] [address] | + + + | Home Phone [...] [place] | | | | | [address] | | + + + + + Care Team Providers + +------+ + | Care Group Chief Operator Name | Role | Phone | + +------+ + | Caitlin Chino MD | PCP | | + +------+ + Encounter Details +--------+ + + + + | Date | Type | Department | Care Team | Description | +--------+ + + + + | 09/03/ | Imaging | [facility] | Provider, | | | 2019 | Exam | MED CTR EXTERNAL | MD [address] | | | | | IMAGING | [place] | | | | | [phone] | [place] [address] | | +--------+ + + + + [...] | | | | | [place] [address] | | | | | | [phone] | | | | | | | | +--------+ + + + + | 06/08/ | Office | Physical Medicine | Rocky Santos | | | 2019 | Visit | and Rehabilitation | MD [address] | | | | | | [place] | | | | | | [address] | | | | | | | | +--------+ + + + + | 06/16/ | Appointment | Pulmonology | Eveline Jaffe | | 2019 | | | MD [address] | | | | | | [address] | | | | | | [place] [address] | | | | | | [phone] | | | | | | | | +--------+ + + + + | 06/16/ | Office | Pulmonology | Eveline Jaffe | | | 2019 | Visit | | MD Raul [address] | | | | | | [place] [address] | | | | | | [place] [address] | | | | | | [phone] | | | | | | | | +--------+ + + + + | 08/24/ | Office | Cardiology | Anisha Lopez DO | | | 2019 | Visit | | [address] | | | | | | [place] | | | | | | [address] | | | | | | | | +--------+ + + + + documented as of this encounter Procedures + +--------+ + + + | Procedure Name | Priori | Date/Time | Associated Diagnosis | Comments | | | ty | | | | + +--------+ + + + | CT ABDOMEN PELVIS W | Routin | 08/18/2018 | | Results for this | | CONTRAST | e | 4:10 PM | | procedure are in the | | | | PDT | | results section. | + +--------+ + + + documented in this encounter Results CT Abdomen Pelvis w Contrast (08/18/2018 4:10 PM PDT) + + | Specimen | [...]
--- OUTSIDE RECORDS SUMMARY | ~2019-05-05 | XMS | Clinical Summary ---
Demographics + + + | Address | [address] | | | [place] [address] | + + + | Home Phone | | + + + | Preferred Language | Unknown | + + + | Marital Status | Single | + + + | Uatsdin Affiliation [...] Team Providers + +------+ + | Care Trust Vault Clerk Name | Role | Phone | + +------+ + | Ayana Taylor MD | PCP | Unavailable | + +------+ + Source Comments [facility] is fully live on both [facility] and [facility] Allergies Not on File Medications [...] | | | + +--------+ +--------+-------+---------+--------+ | RADIOLOGY TECHNOLOGIST MEDICAID | RADIOLOGY TECHNOLOGIST | xxxxxxxx | 06/03/19 | | | [...] | 1945 | [phone] | [place] [address] | | | jana | | | 1 (Home) | | + +--------+ +--------+ + +"
--- OUTSIDE RECORDS SUMMARY | ~2019-05-05 | XMS | Encounter Summary ---
Demographics + + + | Address | [address] | | | [place] [address] | + + + | Home Phone [...] [place] | | | | | [address] | | + + + + + Care Team Providers + +------+ + | Care Finishing Trimmer Name | Role | Phone | + [...] | | left thumb | | [place], | | | | | Trigger | | [place] [address] | | | | | finger, left | | Phone: | | | | | index | | [phone] | | | | | finger | | Fax: | | | | | Trigger | | [phone] | | | | | finger, left | | | | | | | middle | | | | | | | finger | | | | | | | Procedures | | | | | | | MD INCISE | | | | | | | FINGER | | | | | | | TENDON | | | | | | | SHEATH MD | | | | | | | INCISE | | | | | | | FINGER | | | | | | | TENDON | | | | | | | SHEATH MD | | | | | | | INCISE | | | | | | | FINGER | | | | | | | TENDON | | | | | | | SHEATH Left | | | | | | | Thumb | | | | | | | Trigger | | | | | | | Finger | | | | | | | Release, | | | | | | | Left Index | | | | | | | Trigger | | | | | | | Finger | | | | | | | Release, | | | | | | | Left Long | | | | | | | Trigger | | | | | | | Finger | | | | | | | Release | | | +--------+--------+ + + + + Encounter Details +--------+---------+ + + + | Date | Type | Department | Care Team | Description | +--------+---------+ + + + | 12/14/ | Surgery | [facility] | iGuliano Padilla, | Left Thumb Trigger | | 2019 | | MED CTR OR INTRA OP | MD [address] [place] [address] ST | Finger Release, Left | | | | [address] | [place], [place] | Index Trigger | | | | [place] | [address] | Finger Release, Left | | | | [address] | | Long Trigger Finger | | | | [phone] | | Release, Left Ring | | | | | | Trigger Finger | | | | | | Release | +--------+---------+ + + [...] + + + | Blood Pressure | 142/67 | 12/14/2018 1:00 PM | | | | | PDT | | + + + + + | Pulse | 76 | 12/14/2018 1:00 PM | | | | | PDT | | + + + + + | Temperature | 36.4 C (97.5 F) | 12/14/2018 10:41 AM | | | | | PDT | | + + + + + | Respiratory Rate | 16 | 12/14/2018 1:00 PM | | | | | PDT | | + + + + + | Oxygen Saturation | 95% | 12/14/2018 1:00 PM | | | | | PDT | | + + + + + | Inhaled Oxygen | - | - | | | Concentration | | | | + + + + + | Weight | 68.8 kg (151 lb 10.8 | 12/14/2018 10:41 AM | | | | oz) | PDT | | + + + + + | Height | 157.5 cm (5' 2") | 12/14/2018 10:41 AM | | | | | PDT | | + + + + + | Body Mass Index | 27.74 | 12/14/2018 10:41 AM | | | | | PDT [...] + + documented as of this encounter Discharge Instructions Instructions Giuliano Padilla MD - 12/14/2018Stop your coumadin for the next [address] st art up again at your usual dose but get checked with your pcp soon regarding dose Elevate the hand and wiggle the fingers as much as possible to minimize the swelling in the fingers documented in this encounter Medications at Time [...] | | | | type ([facility]) | | | | | | + [...] + + + +---------+ + + | doxycycline | take 1 capsule by | | 0 | 12/12/19 | | | (MONODOX) 100 mg | mouth twice a day | | | 19 | 9 | | capsule | | | | | | + + + +---------+ + + | DULoxetine | Take 1 capsule by | | 0 | 12/08/19 | | | (CYMBALTA) [address] | mouth Daily. | | | 19 | 9 | | capsule | | | | | | + + + +---------+ + + | erythromycin | APPLY A 1/2 INCH | | 0 | 12/12/19 | | | ophthalmic ointment | RIBBON IN AFFECTED | | | 19 | 9 | | | EYE 4 TIMES PER DAY | | | | | | | FOR 7 DAYS | | | | | + + + +---------+ + + | furosemide (LASIX) | Take 1 tablet by | | 0 | 09/29/19 | | | 20 mg tablet | mouth Daily. | | | 19 | 9 | + + + +---------+ + + | | Take 1-2 tablets by | 20 | 0 | 12/15/19 | | | HYDROcodone-acetamin | mouth EVERY 4 TO 6 | tablet | | 19 | 9 | | ophen (NORCO) 5-325 | HOURS [...] | 2018 | Visit | | [address] | | | | | | [facility] | | | | | | [place] [address] | | | | | | [phone] | | | | | | | | +--------+ + + + + | 06/08/ | Office | Physical Medicine | Rocky Santos, | | | 2019 | Visit | and Rehabilitation | MD Nichole Mario | | | | | | [place] | | | | | | [address] | | | | | | | | +--------+ + + + + | 06/16/ | Appointment | Pulmonology | Eveline Jaffe | | 2019 | | | MD Nichole Carter | | | | | | [address] | | | | | | [place] [address] | | | | | | [phone] | | | | | | | | +--------+ + + + + | 06/16/ | Office | Pulmonology | Eveline Jaffe | | 2019 | Visit | | MD [address] | | | | | | [address] | | | | | | [place] [address] | | | | | | [phone] | | | | | | | | +--------+ + + + + | 08/24/ | Office | Cardiology | Anisha Lopez DO | | | 2019 | Visit | | [address] | | | | | | [place] | | | | | | [address] | | | | | | | | +--------+ + + + + documented as of this encounter Procedures + +--------+ + + + | Procedure Name | Priori | Date/Time | Associated Diagnosis | Comments | | | ty | | | | + +--------+ + + + | RELEASE TRIGGER | | 12/14/2018 | Trigger finger of | | | FINGER | | 11:53 AM | left thumb Trigger | | | | | PDT | finger, left index | | | | | | finger Trigger | | | | | | finger, left middle | | | | | | finger | | + +--------+ + + + | EXTRA LAVENDER TOP | Routin | 12/14/2018 | | Results for this | | TUBE | e | 11:39 AM | | procedure are in the | | | | PDT | | results section. | + +--------+ + + + | EXTRA GREEN TOP TUBE | Routin | 12/14/2018 | | Results for this | | | e | 11:39 AM | | procedure are in the | | | | PDT | | results section. | + +--------+ + + + documented in this encounter Results Extra Lavender Top Tube (12/14/2018 11:39 AM PDT) + +-------+ + + + | Component | Value | Ref Range | Performed | Pathologist | | | | | At | Signature | + +-------+ + + + | Extra | Done | | [facility] | | | Lavender | | | [facility] | | | Top Tube | | | MEDICAL | | | [...] [address] | [place] | [phone] | | [facility] | | [address] | | | - LABORATORY | | | | + + + + + Extra Green Top Tube (12/14/2018 11:39 AM PDT) + +-------+ + + + | Component | Value | Ref Range | Performed | Pathologist | | | | | At | Signature | + +-------+ + + + | Extra Green | Done | | [facility] | | | Top Tube | | | [facility] | | [...] [address] | [place] | [phone] | | [facility] | | [address] | | | - LABORATORY | | | | + + + + + documented in this encounter Visit Diagnoses + + | Diagnosis | + + | Trigger finger of left thumb | + + | Trigger finger, left index finger | + + | Trigger finger, left middle finger | + + documented in this encounter Admitting Diagnoses + + | Diagnosis | + + | Trigger finger of left thumb | + + | Trigger finger, left index finger | + + | Trigger finger, left middle finger | + + documented in this encounter Administered Medications + +--------+ +-------+------+------+ | Medication Order | MAR | Action | Dose | Rate | Site | | | Action | Date | | | | + +--------+ +-------+------+------+ | albuterol-ipratropium 2.5-0.5 | Given | 12/15/19 | 3 mLs | | | | mg/3 mL nebulizer solution 3 mL | | 19 11:14 | | | | | 3 mL, Nebulization, ONCE PRN, | | AM PDT | | | | | Wheezing, Starting Tu12/14/18 at | | | | | | | 1039, For 1 dose, Pre-op | | | | | | + +--------+ +-------+------+------+ + +---+ | | | + +---+ | dextrose 50% injection 12.5-25 | | | g 12.5-25 g, Intravenous, EVERY | | | 15 MIN PRN, Low Blood Sugar, Give | | | 12.5g (25 mL) IV if blood | | | glucose 50-69 mg/dL. Give 25g | | | (50 mL) IV if blood glucose < 50, | | | Starting Thu12/14/18 at 1039, | | | Repeat in 15 min if blood glucose | | | remains < 70 mg/dL. Repeat | | | blood glucose in 30 min once | | | blood glucose > 70., Pre-op | | + +---+ | | | + +---+ + + + +---+---+---+ | lactated ringers (LR) infusion | Continue | 12/15/19 | | | | | at 10-100 mL/hr, Intravenous, | d by | 19 12:00 | | | | | CONTINUOUS, Starting Thu12/14/18 | Anesthes | PM PDT | | | | | at 1100, TKO., Pre-op | ia | | | | | + + + +---+---+---+ +---------+ +--------+-------+--------+ | New Bag | 12/15/19 | 1,000 | 100 | Right | | | 19 11:16 | mLs | mL/hr | Arm | | | AM PDT | | | | +---------+ +--------+-------+--------+ +---+---+ | | | +---+---+ + +-------+ +--------+---+ + | lidocaine 1% injection PRN, | Given | 12/15/19 | 10 mLs | | Surgical | | Starting 12/14/18 at 1207, | | 19 12:07 | | | Site | | Intra-op | | PM PDT | | | | + +-------+ +--------+---+ + +---+---+ | | | +---+---+ + +-------+ +--------+---+ + | ropivacaine (NAROPIN) 2 mg/mL | Given | 12/15/19 | 20 mLs | | Surgical | | (0.2%) injection PRN, Starting | | 19 12:07 | | | Site | | 12/14/18 at 1207, Intra-op | | PM PDT | | | | + +-------+ +--------+---+ + +---+---+ | | | +---+---+ documented in this encounter
--- OUTSIDE RECORDS SUMMARY | ~2019-05-05 | XMS | Encounter Summary ---
Demographics + + + | Address | [address] | | | [place] [address] | + + + | Home Phone [...] [place] | | | | | [address] | | + + + + + Care Team Providers + +------+ + | Care Conservation Educator Name | Role | Phone | + [...] | | neoplasm of | [address] | Services [address] | | | | | bronchus and | [place] | [address] | | | | | lung, | [place], [place] | [place], | | | | | unspecified | [address] | [place] [address] | | | | | site | Phone: | Phone: | | | | | | [phone] | [phone] | | | | | | Fax: | Fax: | | | | | | [phone] | [phone] | +--------+ + + + + + Encounter Details +--------+ + + + + | Date | Type | Department | Care Team | Description | +--------+ + + + + | 08/07/ | Hospital | [facility] | Adelita Lu MD | Malignant neoplasm | | 2014 | Encounter | MED CTR NUTRITION | [address] | of bronchus and | | | | SERVICES [address] | [place], [place] | lung, unspecified | | | | [address] [place], | [address] | site (HCC) (Primary | | | | [place] [address] | [phone] | Dx) | | | | [phone] | | | | | | | Sabiha Lange, | | | | | | RDN | | +--------+ + + + + [...] as of this encounter Progress Notes Sabiha Lange RD - 08/07/2014 12:41 PM PDTFormatting of [...] ALBUMIN 3.2 08/07/2014 Estimated needs (wt. 68kg) 3878-0590 kcals/day 68 gm pro/day Medications: noted ASSESSMENT/PLAN: [...] in this e ncounter Plan of Treatment +--------+ + + + + | Date | Type | Specialty | Care Team | Description | +--------+ + + + + | 05/30/ | Office | Rheumatology | Santosh Sumner, | | | 2018 | Visit | | [address] | | | | | | [facility] | | | | | | [place] [address] | | | | | | [phone] | | | | | | | | +--------+ + + + + | 06/08/ | Office | Physical Medicine | Rocky Santos, | | | 2019 | Visit | and Rehabilitation | [address] | | | | | | [place] | | | | | | [address] | | | | | | | | +--------+ + + + + | 06/16/ | Appointment | Pulmonology | Eveline Jaffe | | | 2019 | | | MD [address] | | | | | | [address] [place] | | | | | | [place] [address] | | | | | | [phone] | | | | | | | | +--------+ + + + + | 06/16/ | Office | Pulmonology | Eveline Jaffe | | | 2019 | Visit | | MD [address]ole [address] | | | | | | [address] [place] | | | | | | [place] [address] | | | | | | [phone] | | | | | | | | +--------+ + + + + | 08/24/ | Office | Cardiology | Anisha Lopez DO | | | 2019 | Visit | | [address] | | | | | | [place] | | | | | | [address] | | | | | | | [...]
--- OUTSIDE RECORDS SUMMARY | ~2019-05-05 | XMS | Encounter Summary ---
Demographics + + + | Address | [address] | | | [place] [address] | + + + | Home Phone | | + + + | Preferred Language | Unknown | + + + | Marital Status | | + + + | Mandaen Affiliation | Unknown | + + + [...] [place] | | | | | [address] | | + + + + + Care Team Providers + +------+ + | Care Hydrogen Power Plant Engineer Name | Role | Phone | + +------+ + | Caitlin Chino MD | PCP | | + +------+ + Encounter Details +--------+ + + + + | Date | Type | Department | Care Team | Description | +--------+ + + + + | 03/30/ | Hospital | [facility] | Rodney Worthy | Right wrist pain | | 2019 | Encounter | MED CTR LORAINE XRAY | MD [address] | | | | | [address] [place] | [facility] | | | | | [place] | [place] [address] | | | | | [address] | [phone] | | | | | [phone] | | | +--------+ + + + [...] by | 360 mL | 3 | 10/16/20 | | | albuterol-ipratropiu | nebulization 4 [...] mLs by | 180 | 3 | /16/20 | | | (PULMICORT) 0.5 mg/2 | [...] | 2018 | Visit | | [address] | | | | | | [facility] | | | | | | [place] [address] | | | | | | [phone] | | | | | | | | +--------+ + + + + | 06/08/ | Office | Physical Medicine | Rocky Santos, | | | 2019 | Visit | and Rehabilitation | MD [address] | | | | | | [place] | | | | | | [address] | | | | | | | | +--------+ + + + + | 06/16/ | Appointment | Pulmonology | Eveline Jaffe | | | 2019 | | | MD [address] | | | | | | [address] [place] | | | | | | [place] [address] | | | | | | [phone] | | | | | | | | +--------+ + + + + | 06/16/ | Office | Pulmonology | Eveline Jaffe | | | 2019 | Visit | | MD [address] | | | | | | [address] [place] | | | | | | [place] [address] | | | | | | [phone] | | | | | | | | +--------+ + + + + | 08/24/ | Office | Cardiology | Anisha Lopez DO | | | 2019 | Visit | | [address] | | | | | | [place] | | | | | | [address] | | | | | | | [...]
--- OUTSIDE RECORDS SUMMARY | ~2019-05-05 | XMS | Encounter Summary ---
Demographics + + + | Address | [address] | | | [place] [address] | + + + | Home Phone | | + + + | Preferred Language | Unknown | + + + | Marital Status | | + + + | Scientologist Affiliation | Unknown | + + + | Race | Unknown | + + + | Ethnic Group | Unknown | + + + Author + + + | Author | [facility] | | | and [place] | + + + | Organization | [facility] | [...] [place] | | | | | [address] | | + + + + + Care Team Providers + +------+ + | Care Irrigator Name | Role | Phone | + +------+ + | Davis Ivan MD | PCP | | + +------+ + Reason for Visit +--------+ + | Reason | Comments | +--------+ + | COPD | 6 mo follow up | +--------+ + Encounter Details +--------+---------+ + + + | Date | Type | Department | Care Team | Description | +--------+---------+ + + + | 05/14/ | Office | [facility] | Gurmeet Vargas | Needs flu shot | | 2016 | Visit | PULMONARY [address] | MD [address] | (Primary Dx); | | | | [place], | [address] [place] [place] | Centrilobular | | | | [place] [address] | [place] [address] | emphysema (HCC); | | | | [phone] | [phone] | Chronic bronchitis, | | | | | | obstructive (HCC); | | | | | | Metastatic [...] + + + | Blood Pressure | 110/80 | 2016 2:24 PM | | | | | PST | | + + + + + | Pulse | 76 | 2016 2:24 PM | | | | | PST | | + + + + + | Temperature | - | - | | + + + + + | Respiratory Rate | - | - | | + + + + + | Oxygen Saturation | 96% | 2016 2:24 PM | | | | | PST | | + + + + + | Inhaled Oxygen | - | - | | | Concentration | | | | + + + + + | Weight | 71.3 kg (157 lb 3.2 | 2016 2:24 PM | | | | oz) | PST | | + + + + + | Height | 157.5 cm (5' 2") | 2016 2:24 PM | | | | | PST | | + + + + + | Body Mass Index | 28.75 | 2016 2:24 PM | | | | | PST | | + + + + + documented in this encounter Progress Notes Gurmeet Vargas MD - 2016 3:07 PM [id number] woman with emphysema and chronic bronchitis from long smoking history and resected but metastatic non-small cell lung cancer here for routine follow-up HPI she has not had any exacerbations lately. In September 2015 she had a pneumonitis which was believed to be related to aspiration. She had a swallowing study which demonstrated somewha t inadequate swallowing, a Zenker's diverticulum, pooling of secretions around the piriform sinuses, and was advised to always eat sitting up and remained erect and some posture with 3 0 minutes afterwards, and she has not had a problem since then. She maintains her nutrition well eating regularly despite taking a daily afatinib chemother apy tablet. She does occasionally get diarrhea from it and eats fiber 3 times daily. Her o ncologist is Dr. Park. Her lung cancer was resected in [place] in 2012, but was discovered to be metastatic on a subsequent CT scan. She received radiation and then intravenous chemotherapy and now is on the oral regimen described just above. She smoked beginning at age 5 until she was diagnose d in 2013, age 67, 1 pack per day. This is a left her with daily phlegm production, in the morning but a little bit all day. Her medication controls her symptoms well. She uses 1 pu ff in the morning of fluticasone/vilanterol, (the fluticasone is 100 g), plus nebulized Du oNeb 4 times daily. She also has a Spiriva respite met and she takes 2 puffs in the morning . This gives her good overlap of and atropine-like drug and also beta agonist. She has alb uterol MDI for when necessary use, which is uncommon. She is here with her Mirza, with whom she lives. Physical exam: She is a well-developed woman with a cane but doesn't needed to get to the e xamining table from the chair, articulate and in no acute distress, and quite cheery. Weigh t 157 pounds blood pressure 110/80 pulse 76 and regular respirations 18 temperature 90.7 0.6 96% oxygen saturated on room air HEENT shows pink conjunctiva, reactive pupils, no lymph nod es in the neck or supraclavicular or axillary areas. Her lung arguello are clear, with a high er right diaphragm than the left. Cardiac sounds are distant but regular with no murmur aud ible murmur or gallop. Abdomen is slightly obese. I cannot feel her ankles, she is wearing high boots. Laboratory evaluation: Her last chest imaging was a CT scan November 29, which shows chronic sca rring of the right pleura, volume loss on the right, a density around the right main bronchu s a few centimeters distal to the giuliana. There are no recent blood studies. Impression and suggestion: 1. COPD: Well-managed on the above drugs. No complaints. 2. Metastatic right resected non-small cell lung cancer: She is maintaining a decent quali ty of life on her chemotherapy. She can return in 6 months, or sooner should she have trouble. 20 minutes, at least half spent on counseling Gurmeet Vargas M.D. Pulmonary critical care documented i n this encounter Plan of [...] | | | | | [place] [address] | | | | | | [phone] | | | | | | | | +--------+ + + + + | 06/08/ | Office | Physical Medicine | Rocky Santos, | | | 2019 | Visit | and Rehabilitation | [address] | | | | | | [place] | | | | | | [address] | | | | | | | | +--------+ + + + + | 06/16/ | Appointment | Pulmonology | Eveline Jaffe | | | 2019 | | | MD [address] | | | | | | [address] [place] | | | | | | [place] [address] | | | | | | [phone] | | | | | | | | +--------+ + + + + | 06/16/ | Office | Pulmonology | Eveline Jaffe | | | 2019 | Visit | | MD Raul [address] | | | | | | [address] [place] | | | | | | [place] [address] | | | | | | [phone] | | | | | | | | +--------+ + + + + | 08/24/ | Office | Cardiology | Anisha Lopez DO | | | 2019 | Visit | | [address] | | | | | | [place] | | | | | | [address] | | | | | | | | +--------+ + + + + documented as of this encounter Visit Diagnoses + + | Diagnosis | + + | Needs flu shot - Primary Need for prophylactic vaccination and inoculation against | | influenza | + + | Centrilobular emphysema (HCC) | + + | Chronic bronchitis, obstructive (HCC) Obstructive chronic bronchitis without | | exacerbation | + + | Metastatic lung cancer (metastasis from lung to other site), unspecified laterality | | (HCC) | + + documented in this encounter
--- OUTSIDE RECORDS SUMMARY | ~2019-05-05 | XMS | Encounter Summary ---
Demographics + + + | Address | [address] | | | [place] [address] | + + + | Home Phone [...] [place] | | | | | [address] | | + + + + + Care Team Providers + +------+ + | Care Senior Formulation Scientist Name | Role | Phone | [...] | | | | Malignant | Jimmy C, DO | [address] | | | | | neoplasm of | [address] | [place], | | | | | lower lobe | [address] | [place] [address] | | | | | of right | [place], | Phone: | | | | | lung (HCC) | [place] [address] | [phone] | | | | | Procedures | Phone: | Fax: | | | | | CT Chest w | [phone] | [phone] | | | | | Contrast | Fax: | | | | | | | [phone] | | +--------+--------+ + + + + [...] | | | | Malignant | Jimmy C, DO | [address] | | | | | neoplasm of | [address] | [place], | | | | | lower lobe | [address] | [place] [address] | | | | | of right | [place], | Phone: | | | | | lung (HCC) | [place] [address] | [phone] | | | | | Procedures | Phone: | Fax: | | | | | CT Chest w | [phone] | [phone] | | | | | Contrast | Fax: | | | | | | | [phone] | | +--------+--------+ + + + + Encounter Details +--------+ + + + + | Date | Type | Department | Care Team | Description | +--------+ + + + + | 03/28/ | Hospital | [facility] | Jimmy Banegas DO | Malignant neoplasm | | 2015 | Encounter | MED CTR CT [address] | [address] | of lower lobe of | | | | [address] [place], | [place], [place] | right lung (HCC) | | | | [place] [address] | [address] | | | | | [phone] | | | +--------+ + + + [...] | 2018 | Visit | | [address] | | | | | | [place] [address] | | | | | | [place] [address] | | | | | | [phone] | | | | | | | | +--------+ + + + + | 06/08/ | Office | Physical Medicine | Rocky Santos, | | | 2019 | Visit | and Rehabilitation | MD [address] | | | | | | [place] | | | | | | [address] | | | | | | | | +--------+ + + + + | 06/16/ | Appointment | Pulmonology | Eveline Jaffe | | | 2019 | | | MD [address] | | | | | | [address] [place] | | | | | | [place] [address] | | | | | | [phone] | | | | | | | | +--------+ + + + + | 06/16/ | Office | Pulmonology | Eveline Jaffe | | | 2019 | Visit | | MD Nichole Carter | | | | | | [address] [place] | | | | | | [place] [address] | | | | | | [phone] | | | | | | | | +--------+ + + + + | 08/24/ | Office | Cardiology | Lopez, Anisha, DO | | | 2019 | Visit | | [address] | | | | | | [place] | | | | | | [address] | | | | | | | | +--------+ + + + + documented as of this encounter Procedures + +--------+ + + + | Procedure Name | Priori | Date/Time | Associated Diagnosis | Comments | | | ty | | | | + +--------+ + + + | CT CHEST W CONTRAST | Routin | 03/28/2015 | Malignant neoplasm | Results for this | | | e | 3:00 PM | of lower lobe of | procedure [...] August 29, 2014, June 08, 2014 (from [facility]), and | | June 09, 2013.TECHNIQUE: Axial [...] iohexol (OMNIPAQUE 350) 350 | Given | 03/28/20 | 75 mLs | | | | mg/mL injection 75 mL 75 mL, | | 15 3:03 | | | | | Intravenous, ONCE PRN, Other, | | PM PDT | | | | | Starting 03/28/15 at 1503, | | | | | | | For 1 dose, Cat Scanner | | | | | | + +--------+ +--------+------+------+ +---+---+ | | | +---+---+ documented in this encounter"
--- OUTSIDE RECORDS SUMMARY | ~2019-05-05 | XMS | Encounter Summary ---
Demographics + + + | Address | [address] | | | [place] [address] | + + + | Home Phone | | + + + | Preferred Language | Unknown | + + + | Marital Status | | + + + | Taoist Affiliation | Unknown | + + + | Race | Unknown | + + + | Ethnic Group | Unknown | + + + Author + + + | Author | [facility] | | | and [place] | + + + | Organization | [facility] | | | and [...] [place] | | | | | [address] | | + + + + + Care Team Providers + +------+ + | Care Photographic Equipment Inspector Name | Role | Phone | [...] Description | +--------+---------+ + + + | 09/29/ | Office | [facility] [place] | [place], | COPD (chronic | | 2013 | Visit | PULMONARY [address] | Ayana Looney MD | obstructive | | | | [place], | | pulmonary disease) | | | | [place] [address] | | (Primary Dx); MARCE | | | | [phone] | | (obstructive sleep | | | | | | apnea); Squamous | | | | | | cell carcinoma of | | | | | | lung, stage II, | | | | | | right (HCC) | +--------+---------+ + + + [...] + + + | Blood Pressure | 116/62 | 09/29/2013 1:26 PM | | | | | PDT | | + + + + + | Pulse | 92 | 09/29/2013 1:26 PM | | | | | PDT | | + + + + + | Temperature | - | - | | + + + + + | Respiratory Rate | - | - | | + + + + + | Oxygen Saturation | 96% | 09/29/2013 1:26 PM | | | | | PDT | | + + + + + | Inhaled Oxygen | - | - | | | Concentration | | | | + + + + + | Weight | 70 kg (154 lb 6.4 | 09/29/2013 1:26 PM | | | | oz) | PDT | | + + + + + | Height | 157.5 cm (5' 2") | 09/29/2013 1:26 PM | | | | | PDT | | + + + + + | Body Mass Index | 28.24 | 09/29/2013 1:26 PM | | | | | PDT | | + + + + + documented in this encounter Patient Instructions Patient Instructions Ayana Taylor MD - 09/29/2013 2:10 PM PDTWork with [facility] to get your CPAP mask issues fixed. If this does not improve, then call us and we can make you an appointment to see Bart in the sleep center to work on this. Continue Symbicort twice daily. Keep walking as you are, trying to increase the distance. Let us know when you are completely healed from the surgery and we can place the referral f or rehab. Keep packing the wound until you cannot put any gauze in it any longer. Electronically sign ed by Ayana Taylor MD at 09/29/2013 2:16 PM PDT documented in this encounter Progress Notes Ayana Taylor MD - 09/29/2013 1:51 PM PDTFormatting of this note might be differe nt from the original. Pulmonary Follow Up HPI Thea Carmona is a 68 y.o. female patient of Davis Ivan here today for follow up of lung cancer, sleep apnea and COPD. She underwent a right lower lobectomy and a minimally invasive thorascopic lymphadenectomy. Everything went well, and she was discharged 5 days later. She has had issues with a draini ng wound as one of the sutures was clipped. She has had issues with her CPAP. She forgot to bring her CPAP with her to the surgery, and they did not put CPAP on her after her surgery. She notes that since her discharge, she has felt like she has a headache, which she attributes to the CPAP. She notes that the air blow s out a lot from around the mask in to her eye. She reports she is sleeping well at night. S he is sleeping all night for 8-9 hours. She is currently on a regimen of Symbicort 2 puffs twice daily. She does feel like this me dication regimen is working for them. She is not needing to use the albuterol nebulizer at a ll. She returns today for routine follow up. Currently she is able to walk 70 feet at her own pace on level ground. She is exercising re Picmonicrly. She is walking a 70 foot loop 3 times a day. Past Medical History Past Medical History Diagnosis Date COPD (chronic obstructive pulmonary disease) ([facility]) on albuterol Spondylolisthesis of cervical region Spinal stenosis has tried cortisone injections Osteoporosis Depression Pneumonia 2009 hospitalized 5 days Rheumatoid arthritis(714.0) ([facility]) 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 Respiratory Therapy Supplies [facility] ResMed S9 auto CPAP 5-9 cm H2O. [...] by mouth 2 times daily. Objective BP 116/62 | Pulse 92 | Ht 1.575 m (5' 2") | Wt 70.035 kg (154 lb 6.4 oz) | BMI 28.23 kg/m2 | SpO2 96% General Appearance: Alert, cooperative, no distress, appears stated age, appears somewhat chronically ill, but doing okay Head: Normocephalic, without obvious abnormality, atraumatic Eyes: [...] cyanosis, clubbing, or edema Pulses: Radial pulses 1+ and symmetric Skin: Warm and dry, small, 1 in incision in her right chest wall, with packing, minimal raquel thema and drainage Lymph nodes: Cervical and supraclavicular nodes normal Data: Hospital records were reviewed. CPAP download requested and not provided. Immunization History Administered Date(s) Administered INFLUENZA, PRESERVATIVE FREE IM 03/22/2013 Pneumococcal (Adult) 03/01/2011 Assessment 1. COPD (chronic obstructive pulmonary disease) - Doing well. I recommended continuation of Symbicort and increase in physical activity. She would like to do water therapy, which we c an do once surgical incisions have all healed. 2. MARCE (obstructive sleep apnea) - Not using CPAP much and did not bring a download. She al so did not take this to her surgery, which is a high risk time period, which is concerning t o me. I asked her to work with [facility] on her mask fit and failing this, to call us so we could get her in with Bart to help her. 3. Squamous cell carcinoma of lung, stage II, right (HCC) - S/p lobectomy and LN resection. I do not have the final pathology to know if the LN was positive. They were told not. They are not certain of the plan for chemotherapy, and I asked them to discuss with Dr. Lu. He r again had a lot of questions about various things, including how the decision is m niru to proceed with chemotherapy, and I reviewed that this is made on data showing benefit f or size of tumor, LN involvement, and survival at 5 years. I Do not wish to interfere with Dr. Lu's decisions. Plan 1.Continue on Symbicort. 2.Increase activity. 3.Once all skin incisions are healed, we can refer for physical tehrapy so she can do water therapy. 4. Work with [facility] on mask fit and use CPAP. 5. CPAP download to next visit. She was advised to call if new pulmonary symptoms were to develop. Return to clinic in 6 weeks, or sooner with concerns. CC: Davis Ivan MD, Courtney Lu MD Portions of this report were transcribed using voice recognition software. Every effort wa s made to ensure accuracy; however, inadvertent computerized negotiations director errors may be pre sent. Electronically signed by: Ayana Taylor MD 09/29/2013 13:51 documented in t his encounter Plan of Treatment +--------+ + + + + | Date | Type | Specialty | Care Team | Description | +--------+ + + + + | 05/30/ | Office | Rheumatology | Santosh Sumner, | | | 2018 | Visit | | [address] | | | | | | [facility] | | | | | | [place] [address] | | | | | | [phone] | | | | | | | | +--------+ + + + + | 06/08/ | Office | Physical Medicine | Rocky Santos, | | | 2019 | Visit | and Rehabilitation | MD Nichole [address] | | | | | | [place] | | | | | | [address] | | | | | | | | +--------+ + + + + | 06/16/ | Appointment | Pulmonology | Eveline Jaffe | | | 2019 | | | MD [address]ole [address] | | | | | | [address] [place] | | | | | | [place] [address] | | | | | | [phone] | | | | | | | | +--------+ + + + + | 06/16/ | Office | Pulmonology | Eveline Jaffe | | | 2019 | Visit | | MD Nichole Carter | | | | | | [address] [place] | | | | | | [place] [address] | | | | | | [phone] | | | | | | | | +--------+ + + + + | 08/24/ | Office | Cardiology | Anisha Lopez DO | | | 2019 | Visit | | [address] | | | | | | [place] | | | | | | [address] | | | | | | | | +--------+ + + + + documented as of this encounter Visit Diagnoses + + | Diagnosis | + + | COPD (chronic obstructive pulmonary disease) - Primary Chronic airway obstruction, | | not elsewhere classified | + + | MARCE (obstructive sleep apnea) Obstructive sleep apnea (adult) (pediatric) | + + | Squamous cell carcinoma of lung, stage II, right (HCC) | + + documented in this encounter
--- OUTSIDE RECORDS SUMMARY | ~2019-05-05 | XMS | Encounter Summary ---
Demographics + + + | Address | [address] | | | [place] [address] | + + + | Home Phone [...] [place] | | | | | [address] | | + + + + + Care Team Providers + +------+ + | Care Signal Integrity Engineer Name | Role | Phone | [...] | | | | | | | [address] | | | | | | | Phone: | | | | | | | [phone] | | | | | | | Fax: | | | | | | | [phone] | | +--------+ + + + + [...] | carcinoma | [address] | [address] | | | | | lung (HCC) | [place], | [place], | | | | | | [place] | [place] [address] | | | | | | [address] | Phone: | | | | | | Phone: | [phone] | | | | | | [phone] | Fax: | | | | | | Fax: | [phone] | | | | | | [phone] | | +--------+ + + + + + Encounter Details +--------+ + + + + | Date | Type | Department | Care Team | Description | +--------+ + + + + | 08/17/ Hospital | [facility] | Adelita Lu MD | Squamous cell | | 2014 | Encounter | [facility] | [address] | carcinoma lung (HCC) | | | | [facility] CLIN[facility] [address] | [place], [place] | (Primary Dx); COPD | | | | [address] [place] | [address] | (chronic obstructive | | | | [place] [address] | [phone] | pulmonary disease); | | | | [phone] | | Rheumatoid | | | | [...] other, Mirza. 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 Denies history. Denies previous radi ation or [...] | 2018 | Visit | | [address] | | | | | | [facility] | | | | | | [place] [address] | | | | | | [phone] | | | | | | | | +--------+ + + + + | 06/08/ | Office | Physical Medicine | Rocky Santos, | | | 2019 | Visit | and Rehabilitation | MD [address]ole [address] | | | | | | [place] | | | | | | [address] | | | | | | | | +--------+ + + + + | 06/16/ | Appointment | Pulmonology | Eveline Jaffe | | | 2019 | | | MD [address] | | | | | | [address] [place] | | | | | | [place] [address] | | | | | | [phone] | | | | | | | | +--------+ + + + + | 06/16/ | Office | Pulmonology | Eveline Jaffe | | | 2019 | Visit | | MD [address] | | | | | | [address] [place] | | | | | | [place] [address] | | | | | | [phone] | | | | | | | | +--------+ + + + + | 08/24/ | Office | Cardiology | LopeznAisha kelseyDO | | | 2019 | Visit | | [address] | | | | | | [place] | | | | | | [address] | | | | | | | [...]
--- OUTSIDE RECORDS SUMMARY | ~2019-05-05 | XMS | Encounter Summary ---
Demographics + + + | Address | [address] | | | [place] [address] | + + + | Home Phone | | + + + | Preferred Language | Unknown | + + + | Marital Status | | + + + | Jew Affiliation | Unknown | + + + [...] [place] | | | | | [address] | | + + + + + Care Team Providers + +------+ + | Care Box Chipper Name | Role | Phone | + [...] | | | Tr[place] | | [place] [address] | | | | | finger, left | | Phone: | | | | | index | | [phone] | | | | | finger | | Fax: | | | | | Trigger | | [phone] | | | | | finger, left [...] | +--------+ + + + + | 12/14/ | Anesthesia | [facility] | Ju[place], | | | 2019 | Event | MED CTR OR INTRA OP | Davis Alvarenga MD | | | | | [address] | [address] | | | | | [place] | [place] | | | | | [address] | [address] | | | | | [phone] | | | +--------+ + + + + Anesthesia Record + + + + + | Procedure Name | Responsible | Anesthesia Start | Anesthesia Stop Time | | | Anesthesiologist | Time | | + + + + + | Left Thumb Trigger | Davis Alvarenga | 12/14/18 1153 | 12/14/18 1240 | | Finger Release, Left | MD [place] | | | | Index Trigger | | | | | Finger Release, Left | | | | | Long Trigger Finger | | | | | Release, Left Ring | | | | | Trigger Finger [...] | | | +----+---+ + + | 07 | 1 | | | | /1 | 1 | | | | 6/ | 4 | | | | 20 | 8 | | | | 19 | | | | +----+---+ + + | | 1 | An Start | Reassessment prior to anesthesia induction/procedure. | | | 1 | | | | | 5 | | | | | 3 | | | +----+---+ + + | | 1 | An Checkout | Pre-use anesthesia machine/equipment checkout. | | | 1 | | | | | 5 | | | | | 4 | | | +----+---+ + + | | 1 | AN | Per surgeon request | | | 1 | Antibiotic | | | | 5 | declined | | | | 4 | | | +----+---+ + + | | 1 | Pre-Procedu | | | | 1 | ral Timeout | | | | 5 | Completed | | | | 9 | | | +----+---+ + + | | 1 | An | | | | 2 | Induction | | | | 0 | | | | | 0 | | | +----+---+ + + | | 1 | Breathing | | | | 2 | Spontaneous | | | | 0 | ly | | | | 0 | | | +----+---+ + + | | 1 | Pre-Procedu | | | | 2 | ral Timeout | | | | 1 | Completed | | | | 0 | | | +----+---+ + + | | 1 | E[place] | | | | 2 | 43-degrees | | | | 1 | | | | | 0 | | | +----+---+ + + | | 1 | an yaneth now | Mouth breathing. Nc co2 | | | 2 | | | | | 1 | | | | | 0 | | | +----+---+ + + | | 1 | First | | | | 2 | Inc/Proc St | | | | 1 | | | | | 1 | | | +----+---+ + + | | 1 | an stop | | | | 2 | data | | | | 3 | | | | | 9 | | | +----+---+ + + | | 1 | An Stop | Patient handed off to recovery nurse. | | | 4 | | | | | 0 | | | +----+---+ + + +------+ | Meds | +------+ + + + | Name | Total | + + + | lidocaine 2% | 20 mg | + + + | propofol | 20 mg | + + + | propofol | 135.88 mg | + + + | lactated ringers (LR) infusion | 700 mL | + + + + + [...] CLINIC | | | | | | [place] [address] | | | | | | [phone] | | | | | | | | +--------+ + + + + | 06/08/ | Office | Physical Medicine | Rocky Santos, | | | 2019 | Visit | and Rehabilitation | [address] | | | | | | [place] | | | | | | [address] | | | | | | | | +--------+ + + + + | 06/16/ | Appointment | Pulmonology | Eveline Jaffe | | | 2019 | | | MD [address] | | | | | | [address] [place] | | | | | | [place] [address] | | | | | | [phone] | | | | | | | | +--------+ + + + + | 06/16/ | Office | Pulmonology | Eveline Jaffe | | | 2019 | Visit | | MD Nichole Carter | | | | | | [address] [place] | | | | | | [place], [place] [address] | | | | | | [phone] | | | | | | | | +--------+ + + + + | 08/24/ | Office | Cardiology | Anisha Lopez DO | | | 2019 | Visit | | [address] | | | | | | [place] | | | | | | [address] | | | | | | | | +--------+ + + + + documented as of this encounter Visit Diagnoses Not on filedocumented in this encounter Administered Medications + + + +------+------+------+ | Medication Order | MAR | Action | Dose | Rate | Site | | | Action | Date | | | | + + + +------+------+------+ | lactated ringers (LR) infusion | Continue | 12/15/19 | | | | | at 10-100 mL/hr, Intravenous, | d by | 19 12:00 | | | | | CONTINUOUS, Starting 12/14/18 | Anesthes | PM PDT | | | | | at 1100, TKO., Pre-op | ia | | | | | + + + +------+------+------+ +---------+ +--------+-------+--------+ | New Bag | 12/15/19 | 1,000 | 100 | Right | | | 19 11:16 | mLs | mL/hr | Arm | | | AM PDT | | | | +---------+ +--------+-------+--------+ +---+---+ | | | +---+---+ + +-------+ +-------+---+---+ | lidocaine (PF) 2% injection | Given | 12/15/19 | 20 mg | | | | Intravenous, PRN, Starting Tue | | 19 12:00 | | | | | 12/14/18 at 1200, Anesthesia | | PM PDT | | | | | Intra-op | | | | | | + +-------+ +-------+---+---+ +---+---+ | | | +---+---+ + +-------+ +-------+---+---+ | propofol (DIPRIVAN) injection | Given | 12/15/19 | 20 mg | | | | Intravenous, PRN, Starting Tue | | 19 12:00 | | | | | 12/14/18 at 1200, Anesthesia | | PM PDT | | | | | Intra-op | | | | | | + +-------+ +-------+---+---+ +---+---+ | | | +---+---+ + + + + +-------+---+ | propofol (DIPRIVAN) injection | Rate/Dos | 12/15/19 | 50 | 20.6 | | | Intravenous, CONTINUOUS PRN, | e Change | 19 12:13 | mcg/kg/m | mL/hr | | | Starting 12/14/18 at 1200, | | PM PDT | in | | | | Anesthesia Intra-op | | | | | | + + + + +-------+---+ +---------+ + + +---+ | New Bag | 12/15/19 | 75 | 31 mL/hr | | | | 19 12:00 | mcg/kg/m | | | | | PM PDT | in | | | +---------+ + + +---+ +---+---+ | | | +---+---+ documented in this encounter"
--- OUTSIDE RECORDS SUMMARY | ~2019-05-05 | XMS | Encounter Summary ---
Demographics + + + | Address | [address] | | | [place] [address] | + + + | Home Phone | | + + + | Preferred Language | Unknown | + + + | Marital Status | | + + + | Mandaeism Affiliation | Unknown | + + + | Race | Unknown | + + + | Ethnic Group | Unknown | + + + Author + + + | Author | [facility] | | | and [place] | + + + | Organization | [facility] | | | [...] [place] | | | | | [address] | | + + + + + Care Team Providers + +------+ + | Care Inventory Control Clerk Name | Role | Phone | [...] Malignant | Jimmy C, DO | [address] | | | | | neoplasm of | [address] | [place], | | | | | lower lobe | [address] | [place] [address] | | | | | of right | [place], | Phone: | | | | | lung (HCC) | [place] [address] | [phone] | | | | | Procedures | Phone: | Fax: | | | | | CT Chest w | [phone] | [phone] | | | | | Contrast | Fax: | | | | | | | [phone] | | +--------+--------+ + + + + [...] Malignant | Jimmy C, DO | [address] | | | | | neoplasm of | [address] | [place], | | | | | lower lobe | [address] | [place] [address] | | | | | of right | [place], | Phone: | | | | | lung (HCC) | [place] [address] | [phone] | | | | | Procedures | Phone: | Fax: | | | | | CT Chest w | [phone] | [phone] | | | | | Contrast | Fax: | | | | | | | [phone] | | +--------+--------+ + + + + Encounter Details +--------+ + + + + | Date | Type | Department | Care Team | Description | +--------+ + + + + | 03/28/ | Hospital | [facility] | Jimmy Banegas DO | Malignant neoplasm | | 2015 | Encounter | MED [facility] [address] | [address] | of lower lobe of | | | | [place], | [place], [place] | right lung (HCC) | | | | [place] [address] | [address] | | | | | [phone] | | | +--------+ + + + [...] | 2018 | Visit | | [address] | | | | | | [place] | | | | | | [place] [address] | | | | | | [phone] | | | | | | | | +--------+ + + + + | 06/08/ | Office | Physical Medicine | Rocky Santos, | | | 2019 | Visit | and Rehabilitation | MD Nich[address] | | | | | | [place] | | | | | | [address] | | | | | | | | +--------+ + + + + | 06/16/ | Appointment | Pulmonology | Eveline Jaffe | | | 2019 | | | MD [address] | | | | | | [address] [place] | | | | | | [place] [address] | | | | | | [phone] | | | | | | | | +--------+ + + + + | 06/16/ | Office | Pulmonology | Eveline Jaffe | | | 2019 | Visit | | MD Nichole Carter | | | | | | [address] [place] | | | | | | [place] [address] | | | | | | [phone] | | | | | | | | +--------+ + + + + | 08/24/ | Office | Cardiology | Lopez, Anisha, DO | | | 2019 | Visit | | [address] | | | | | | [place] | | | | | | [address] | | | | | | | [...] August 29, 2014, June 08, 2014 (from the [facility]), and | | June 09, 2013.TECHNIQUE: [...]
--- OUTSIDE RECORDS SUMMARY | ~2019-05-05 | XMS | Encounter Summary ---
Demographics + + + | Address | [address] | | | [place] [address] | + + + | Home Phone | | + + + | Preferred Language | Unknown | + + + | Marital Status | | + + + | Baptist Affiliation | Unknown | + + + [...] [place] | | | | | [address] | | + + + + + Care Team Providers + +------+ + | Care Vasc Tech Name | Role | Phone | + [...] | | | hand, | | [place] [address] | | | | | unspecified | | Phone: | | | | | osteoarthrit | | [phone] | | | | | is type | | Fax: | | | | | Osteoarthrit | | [phone] | | | | | is of [...] | | | | | | | DE REPAIR | | | | | | | INTERCARP/CA | | | | | | | RP-METACARP | | | | | | | JT | | | +--------+--------+ + + + + Encounter Details +--------+ + + + + | Date | Type | Department | Care Team | Description | +--------+ + + + + | 03/20/ | Hospital | [facility] | Giuliano Padilla, | | | 2014 | Encounter | MED CTR XRAY [address] | [address] [facility] | | | | | [place] | [place] | | | | | [place] [address] | [id number] | | | | | [phone] | | | +--------+ + + + [...] | 2018 | Visit | | [address] | | | | | | [address] | | | | | | [place] [address] | | | | | | [phone] | | | | | | | | +--------+ + + + + | 06/08/ | Office | Physical Medicine | Rocky Santos, | | | 2019 | Visit | and Rehabilitation | MD [address] | | | | | | [place] | | | | | | [address] | | | | | | | | +--------+ + + + + | 06/16/ | Appointment | Pulmonology | Eveline Jaffe | | | 2019 | | | MD [address] | | | | | | [address] | | | | | | [place] [address] | | | | | | [phone] | | | | | | | | +--------+ + + + + | 06/16/ | Office | Pulmonology | Eveline Jaffe | | | 2019 | Visit | | Sherrin, MD [address] | | | | | | [place] [address] [place] | | | | | | [place] [address] | | | | | | [phone] | | | | | | | | +--------+ + + + + | 08/24/ | Office | Cardiology | Anisha Lopez DO | | | 2019 | Visit | | [address] | | | | | | [place] | | | | | | [address] | | | | | | | [...]
--- OUTSIDE RECORDS SUMMARY | ~2019-05-05 | XMS | Encounter Summary ---
Demographics + + + | Address | [address] | | | [place] [address] | + + + | Home Phone [...] [place] | | | | | [address] | | + + + + + Care Team Providers + +------+ + | Care Motorcycle Sales Associate Name | Role | Phone | + [...] + + | 08/15/ | Hospital | [facility] | Adelita Lu MD | 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 | | | | INFUSION [address] | [place], [place] | lung, unspecified | | | | [place], | [address] | laterality (HCC); | | | | [place] [address] | [phone] | Pulmonary nodules | | | | [phone] | | | +--------+ + + + [...] | | | | | [place] [address] | | | | | | [phone] | | | | | | | | +--------+ + + + + | 06/08/ | Office | Physical Medicine | Rocky Santos, | | | 2019 | Visit | and Rehabilitation | MD Nichole Landis | | | | | | [place] | | | | | | [address] | | | | | | | | +--------+ + + + + | 06/16/ | Appointment | Pulmonology | Eveline Jaffe | | 2019 | | | MD Nichole Carter | | | | | | [address] | | | | | | [place] [address] | | | | | | [phone] | | | | | | | | +--------+ + + + + | 06/16/ | Office | Pulmonology | Eveline Jaffe | | | 2019 | Visit | | MD Raul [address] | | | | | | [place] | | | | | | [place] [address] | | | | | | [phone] | | | | | | | | +--------+ + + + + | 08/24/ | Office | Cardiology | Anisha Lopez DO | | | 2019 | Visit | | [address] | | | | | | [place] | | | | | | [address] | | | | | | | [...] [address] | [place] | [phone] | | [facility] | | [address] | | | - LABORATORY | | | | + + + + + | [facility] | [address] | [place] | | | [facility] | | [address] | | | - LABORATORY | | [...] mL/min/1.73m2 | [facility] | | | [facility] | RATE,ESTIMATED | | MEDICAL | | | | mL/min/1.29l4Qigf than | | CENTER - | | [...] | 8.6 | 8.3 - 10.5 | [facility] | | | | | mg/dL | [facility] | | | | | | MEDICAL | | | | | | CENTER - | | | | | | LABORATORY | | + + + + + + | Albumin | 3.0 (L) | 3.2 - 5.0 g/dL | [facility] | | | | | | ST. [...] | ine Ratio | | | [facility] | | | | | | MEDICAL | | | | | | CENTER - | | | | | | LABORATORY | | + + + + + + + + | Specimen | + + | Blood | + + + + + + + | Performing | Address | City/State/Rustcode | Phone Number | | Organization | | | | + + + + + | [facility] | [address] | [place] | [phone] | | [facility] | | [address] | | | - LABORATORY | | | | + + + + + | [facility] | [address] | [place] | | | [facility] | | [address] | | | - LABORATORY | | [...]
--- OUTSIDE RECORDS SUMMARY | ~2019-05-05 | XMS | Encounter Summary ---
Demographics + + + | Address | [address] | | | [place] [address] | + + + | Home Phone | | + + + | Preferred Language | Unknown | + + + | Marital Status | | + + + | Rastafarian Affiliation | Unknown | + + + | Race | Unknown | + + + | Ethnic Group | Unknown | + + + Author + + + | Author | [facility] | | | and [place] | + + + | Organization | [facility] | | | and [...] [place] | | | | | [address] | | + + + + + Care Team Providers + +------+ + | Care Regional Truck Driver Name | Role | Phone [...] | +--------+ + + + + | 09/14/ | Telephone | [facility] | Adelita Lu MD | Other | | 2013 | | MED CTR MEDICAL | [address] [facility] | | | | | ONCOLOGY CLINIC [address] | [place] | | | | | W [facility] | [address] | | | | | [place] [address] | [phone] | | | | | [phone] | | | +--------+ + + + [...] W | | | | | | [facility] | | | | | | [place] [address] | | | | | | [phone] | | | | | | | | +--------+ + + + + | 06/08/ | Office | Physical Medicine | Rocky Santos, | | | 2019 | Visit | and Rehabilitation | [address] | | | | | | [place] | | | | | | [address] | | | | | | | | +--------+ + + + + | 06/16/ | Appointment | Pulmonology | Eveline Jaffe | | | 2019 | | | MD Nichole Carter [address] | | | | | | [address] [place] | | | | | | [place] [address] | | | | | | [phone] | | | | | | | | +--------+ + + + + | 06/16/ | Office | Pulmonology | Eveline Jaffe | | | 2019 | Visit | | MD Nichole Carter [address] | | | | | | [address] [place] | | | | | | [place] [address] | | | | | | [phone] | | | | | | | | +--------+ + + + + | 08/24/ | Office | Cardiology | Anisha Lopez DO | | | 2019 | Visit | | [address] | | | | | | [place] | | | | | | [address] | | | | | | | | +--------+ + + + + documented as of this encounter Visit Diagnoses Not on filedocumented in this encounter"
--- OUTSIDE RECORDS SUMMARY | ~2019-05-05 | XMS | Encounter Summary ---
Demographics + + + | Address | [address] | | | [place] [address] | + + + | Home Phone [...] | + + + + + | iMrza Bee | ECON | Unknown | | + + + + + | Jewel Azevedo | ECON | [address] | | | | | [place] | | | | | [address] | | + + + + + Care Team Providers + +------+ + | Care Beauty Shop Manager Name | Role | Phone | [...] + + | 10/02/ | Telephone | [facility] | Adelita Lu MD | Other | | 2014 | | MED CTR MEDICAL | [address] [facility] | | | | | ONCOLOGY CLINIC 401 | [place] | | | | | W [facility] | [address] | | | | | [place] [address] | [phone] | | | | | [phone] | | | +--------+ + + + [...] W | | | | | | [facility] | | | | | | [place] [address] | | | | | | [phone] | | | | | | | | +--------+ + + + + | 06/08/ | Office | Physical Medicine | Rocky Santos, | | | 2019 | Visit | and Rehabilitation | [address] | | | | | | [place] | | | | | | [address] | | | | | | | | +--------+ + + + + | 06/16/ | Appointment | Pulmonology | Eveline Jaffe | | | 2019 | | | MD Nichole Carter [address] | | | | | | [address] [place] | | | | | | [place] [address] | | | | | | [phone] | | | | | | | | +--------+ + + + + | 06/16/ | Office | Pulmonology | Eveline Jaffe | | | 2019 | Visit | | MD Nichole Carter [address] | | | | | | [address] [place] | | | | | | [place] [address] | | | | | | [phone] | | | | | | | | +--------+ + + + + | 08/24/ | Office | Cardiology | Anisha Lopez DO | | | 2019 | Visit | | [address] | | | | | | [place] | | | | | | [address] | | | | | | | | +--------+ + + + + documented as of this encounter Visit Diagnoses Not on filedocumented in this encounter"
--- OUTSIDE RECORDS SUMMARY | ~2019-05-05 | XMS | Encounter Summary ---
Demographics + + + | Address | [address] | | | [place] [address] | + + + | Home Phone [...] [place] | | | | | [address] | | + + + + + Care Team Providers + +------+ + | Care Frontload Driver Name | Role | Phone | [...] + + | 11/06/ | Office | [facility] | Gurmeet Vargas | Centrilobular | | 2017 | Visit | PULMONARY [address] | MD [address] | emphysema (HCC) | | | | [place], | [place] | (Primary Dx); | | | | [place] [address] | [place] [address] | Metastatic primary | | | | [phone] | [phone] | lung cancer, | | | | [...] Gurmeet Vargas MD - 11/06/2016 2:40 PM [id number] ex-smoker with metastatic lung cancer in remission [...] also tells me that her surgeon in [place] once to fix a pelvic hernia and [...] 15 minutes, at least half in counseling. [employer] Word processing was used, and I a [...] | | | | | | [place] [address] | | | | | | [phone] | | | | | | | | +--------+ + + + + | 06/08/ | Office | Physical Medicine | Rocky Santos, | | | 2019 | Visit | and Rehabilitation | MD [address] | | | | | | [place] | | | | | | [address] | | | | | | | | +--------+ + + + + | 06/16/ | Appointment | Pulmonology | Eveline Jaffe | | 2019 | | | MD Nichole Carter | | | | | | [address] | | | | | | [place] [address] | | | | | | [phone] | | | | | | | | +--------+ + + + + | 06/16/ | Office | Pulmonology | Eveline Jaffe | | | 2019 | Visit | | MD Raul [address] | | | | | | [place] | | | | | | [place] [address] | | | | | | [phone] | | | | | | | | +--------+ + + + + | 08/24/ | Office | Cardiology | Anisha Lopez DO | | | 2019 | Visit | | [address] | | | | | | [place] | | | | | | [address] | | | | | | | | +--------+ + + + + documented as of this encounter Visit Diagnoses + + | Diagnosis | + + | Centrilobular emphysema (HCC) - Primary | + + | Metastatic primary lung cancer, unspecified laterality (HCC) | + + documented in this encounter
--- OUTSIDE RECORDS SUMMARY | ~2019-05-05 | XMS | Encounter Summary ---
Demographics + + + | Address | [address] | | | [place] [address] | + + + | Home Phone [...] [place] | | | | | [address] | | + + + + + Care Team Providers + +------+ + | Care Calker Name | Role | Phone | + [...] | | | | | | | [place] REPAIR | | | | | | [...] + + | 10/27/ | Hospital | [facility] | Giuliano Padilla, | Osteoarthritis of | | 2018 | Encounter | MED CTR OR INTRA OP | MD [address] | first | | | | [address] | [place], [place] | carpometacarpal | | | | [place], [place] | [address] | (CMC) joint of one | | | | [address] | | hand | | | | [phone] | | | +--------+ + + + [...] Discharge Instructions Instructions Giuliano Padilla MD - 10/27/2017Keep hand elevated and wiggle [...] | | | | | [place] [address] | | | | | | [phone] | | | | | | | | +--------+ + + + + | 06/08/ | Office | Physical Medicine | Rocky Santos, | | | 2019 | Visit | and Rehabilitation | [address] | | | | | | [place] | | | | | | [address] | | | | | | | | +--------+ + + + + | 06/16/ | Appointment | Pulmonology | Eveline Jaffe | | 2019 | | | MD Nichole Carter [address] | | | | | | [address] [place] | | | | | | [place] [address] | | | | | | [phone] | | | | | | | | +--------+ + + + + | 06/16/ | Office | Pulmonology | Eveline Jaffe | | | 2019 | Visit | | MD Nichole Carter [address] | | | | | | [address] [place] | | | | | | [place] [address] | | | | | | [phone] | | | | | | | | +--------+ + + + + | 08/24/ | Office | Cardiology | Anisha Lopez DO | | 2019 | Visit | | [address] | | | | | | [place] | | | | | | [address] | | | | | | | | +--------+ + + + + documented as of this encounter Procedures + +--------+ + + + | Procedure Name | Priori | Date/Time | Associated Diagnosis | Comments | | | ty | | | | + +--------+ + + + | SHEFALI HERNANDEZ STATS NO | Routin | 10/27/2017 | [...] +---+--------+ documented in this encounter Results SHEFALI Najera No Charge (10/27/2017 11:14 AM PDT) + [...] first carpometacarpal (CMC) joint of one hand | + + documented in this encounter [...] PRN, Pain, pain, | | | Starting 10/27/17 at 0859, Max | | | total [...] | 600 mg 600 mg, Oral, ONCE, e | | 18 9:20 | | | [...] ONCE | | | PRN, Nausea, Starting 10/27/17 | | | at 1114, For 1 dose, | | | Recovery/Phase I | | + +---+ | | | + +---+ documented in this encounter
--- OUTSIDE RECORDS SUMMARY | ~2019-05-05 | XMS | Encounter Summary ---
Demographics + + + | Address | [address] | | | [place] [address] | + + + | Home Phone | | + + + | Preferred Language | Unknown | + + + | Marital Status | | + + + | Restorationism Affiliation | Unknown | + + + | Race | Unknown | + + + | Ethnic Group | Unknown | + + + Author + + + | Author | [facility] | | | and [place] | + + + | Organization | [facility] | | | [...] [place] | | | | | [address] | | + + + + + Care Team Providers + +------+ + | Care Bulk Tank Driver Name | Role | Phone | + +------+ + | Davis Ivan MD | PCP | | + +------+ + Encounter Details +--------+ + + + + | Date | Type | Department | Care Team | Description | +--------+ + + + + | 10/05/ | Hospital | [facility] | Adelita Lu MD | Squamous cell | | 2014 | Encounter | MED CTR MEDICAL | [address] [facility] | carcinoma of lung, | | | | ONCOLOGY CLINIC [address] | [place], [place] | stage II, right | | | | [facility] | [address] | (HCC) (Primary Dx) | | | | [place] [address] | [phone] | | | | | [phone] | | | +--------+ + + + [...] 10/05/2013 2:13 PM PDT Hem-Onc Progress Note [facility] Patient name:Thea Carmona : 1945 Age: 68 y.o. CSN: [id number] Date of Service: 10/05/2013 Identifying Statement: Thea Carmona is a 68 y.o. female from [facility] with clinical stage II, pathologic stage IB [...] lewis 2.CT-guided biopsy by interventional radiology at [facility] of the right lung massshows squamous [...] by Dr. Mace , thoracic surgeon at [facility] for consideration of broncho scopy, [...] Date COPD (chronic obstructive pulmonary disease) ([facility]) on albuterol Spondylolisthesis of cervical region Spinal stenosis has tried cortisone injections Osteoporosis Depression Pneumonia 2009 hospitalized 5 days Rheumatoid arthritis(714.0) ([facility]) on prednisone and [facility]otrexate[facility] Hyperlipidemia on simvastatin Hypertension on clonidine and lisinopril Hypothyroidism GERD (gastroesophageal reflux disease) Stroke ([facility]) 2006 Stroke ([facility]) 2007 Squamous cell carcinoma of lung ([facility]) 07/2013 MARCE (obstructive sleep apnea) AHI 11.6 [...] mg by mouth Daily. RESPIRATORY THERAPY SUPPLIES [facility] ResMed S9 auto [...] using context, where these substitutions have occurred. Tses Arguello CMA - 10/05/2013 1:52 PM PDTREVIEW [...] | | | | | [place] [address] | | | | | | [phone] | | | | | | | | +--------+ + + + + | 06/08/ | Office | Physical Medicine | Rocky Santos, | | | 2019 | Visit | and Rehabilitation | MD Nichole Landis | | | | | | [place] | | | | | | [address] | | | | | | | | +--------+ + + + + | 06/16/ | Appointment | Pulmonology | Eveline Jaffe | | | 2019 | | | MD Nichole Carter [address] | | | | | | [address] | | | | | | [place] [address] | | | | | | [phone] | | | | | | | | +--------+ + + + + | 06/16/ | Office | Pulmonology | Eveline Jaffe | | | 2019 | Visit | | MD Raul [address] | | | | | | [address] | | | | | | [place] [address] | | | | | | [phone] | | | | | | | | +--------+ + + + + | 08/24/ | Office | Cardiology | Anisha Lopez DO | | | 2019 | Visit | | [address] | | | | | | [place] | | | | | | [id number] | | | | | | | [...] | | | | | mg/dL | [facility] | | | | | | MEDICAL | | | | | | CENTER - | | | | | | LABORATORY | | + + + + + + | eGFR if not | >60Comment: GLOMERULAR | >=60 | [facility] | | | | FILTRATION | mL/min/1.73m2 | [facility] | | | LAO | RATE,ESTIMATED | | MEDICAL | | | | mL/min/1.54q2Dkib than | | CENTER - | | [...] | | | | | mg/dL | [facility] | | | | | | MEDICAL [...] + | [facility] | [address] | [place] | [phone] | | [facility] | | [address] | | | - LABORATORY | | | | + + + + + | [facility] | [address] | [place], [place] | | | [facility] | | [address] | | | - LABORATORY | | [...] + | [facility] | [address] | [place] | [phone] | | [facility] | | [address] | | | - LABORATORY | | | | + + + + + | [facility] | [address] | [place] | | | [facility] | | [address] | | | - LABORATORY | | | | + + + + + documented in this encounter Visit Diagnoses + + | Diagnosis | + + | Squamous cell carcinoma of lung, stage II, right (HCC) - Primary | + + documented in this encounter"
--- OUTSIDE RECORDS SUMMARY | ~2019-05-05 | XMS | Encounter Summary ---
Demographics + + + | Address | [address] | | | [place] [address] | + + + | Home Phone [...] [place] | | | | | [address] | | + + + + + Care Team Providers + +------+ + | Care Nurse Practitioner Name | Role | Phone | + [...] | | Cough | [place], | [address] | | | | | Procedures | Ayana B, | [place], | | | | | CT Chest w | MD [address] | [place] [address] | | | | | Contrast | [address] | Phone: | | | | | | [place], | [phone] | | | | | | [place] [address] | Fax: | | | | | | | [phone] | +--------+--------+ + + + + Reason [...] + + | 08/29/ | Hospital | [facility] | [place], | Cough | | 2014 | Encounter | MED CTR CT [address] | Ayana Looney MD | | | | | [place], | | | | | | [place] [address] | | | | | | [phone] | | | +--------+ + + + [...] | 2018 | Visit | | [address] | | | | | | [facility] | | | | | | [place] [address] | | | | | | [phone] | | | | | | | | +--------+ + + + + | 06/08/ | Office | Physical Medicine | Rocky Santos, | | | 2019 | Visit | and Rehabilitation | MD Vare[address] | | | | | | [place] | | | | | | [address] | | | | | | | | +--------+ + + + + | 06/16/ | Appointment | Pulmonology | Eveline Jaffe | | | 2019 | | | MD Nichole Carter W | | | | | | [address] [place] | | | | | | [place] [address] | | | | | | [phone] | | | | | | | | +--------+ + + + + | 06/16/ | Office | Pulmonology | Eveline Jaffe | | | 2019 | Visit | | MD Nichole Carter [address] | | | | | | [address] [place] | | | | | | [place] [address] | | | | | | [phone] | | | | | | | | +--------+ + + + + | 08/24/ | Office | Cardiology | Anisha Lopez DO | | | 2019 | Visit | | [address] | | | | | | [place] | | | | | | [address] | | | | | | | [...] and XRT, known recurrent lung cancer COMPARISON: [facility] | | radiographs August 24 and [...] [address] | [address] | [place] | [phone] | | [facility] | | [address] | | | - IMAGING | | [...]
--- OUTSIDE RECORDS SUMMARY | ~2019-05-05 | XMS | Encounter Summary ---
Demographics + + + | Address | [address] | | | [place] [address] | + + + | Home Phone [...] [place] | | | | | [address] | | + + + + + Care Team Providers + +------+ + | Care Reinforcing Rod Layer Name | Role | Phone | + [...] + + | 11/01/ | Telephone | [facility] | Giuliano Padilla, | Surgery Appointment | | 2019 | | ORTHOPEDIC SURGERY | MD Germania BARON | (Reschedule | | | | [address] [place] [address] | [place] | Surgery/Clearance) | | | | [place] | [id number] | | | | | [address] | | | | | | [phone] | | | +--------+ + + + [...] | 2018 | Visit | | [address] | | | | | | [facility] | | | | | | [place] [address] | | | | | | [phone] | | | | | | | | +--------+ + + + + | 06/08/ | Office | Physical Medicine | Rocky Santos, | | | 2019 | Visit | and Rehabilitation | MD Nichole [address] | | | | | | [place] | | | | | | [address] | | | | | | | | +--------+ + + + + | 06/16/ | Appointment | Pulmonology | Eveline Jaffe | | | 2019 | | | MD Nichole Carter [address] | | | | | | [address] [place] | | | | | | [place] [address] | | | | | | [phone] | | | | | | | | +--------+ + + + + | 06/16/ | Office | Pulmonology | Eveline Jaffe | | | 2019 | Visit | | MD Nichole Carter [address] | | | | | | [address] [place] | | | | | | [place] [address] | | | | | | [phone] | | | | | | | | +--------+ + + + + | 08/24/ | Office | Cardiology | Anisha Lopez DO | | | 2019 | Visit | | [address] | | | | | | [place] | | | | | | [address] | | | | | | | | +--------+ + + + + documented as of this encounter Visit Diagnoses Not on filedocumented in this encounter"
--- OUTSIDE RECORDS SUMMARY | ~2019-05-05 | XMS | Encounter Summary ---
Demographics + + + | Address | [address] | | | [place] [address] | + + + | Home Phone | | + + + | Preferred Language | Unknown | + + + | Marital Status | | + + + | Druze Affiliation | Unknown | + + + | Race | Unknown | + + + | Ethnic Group | Unknown | + + + Author + + + | Author | [facility] | | | and [place] | + + + | Organization | [facility] | | | and [...] [place] | | | | | [address] | | + + + + + Care Team Providers + +------+ + | Care Dish Stacker Name | Role | Phone | + +------+ + | Davis Ivan MD | PCP | | + +------+ + Encounter Details +--------+ + + + + | Date | Type | Department | Care Team | Description | +--------+ + + + + | 04/13/ | Hospital | [facility] | [place], | Pulmonary nodule | | 2012 | Encounter | MED CTR LABORATORY | Ayana Looney MD | | | | | [address] | | | | | | [place] | | | | | | [address] | | | | | | [phone] | | | +--------+ + + + [...] | 2018 | Visit | | [address] | | | | | | [facility] | | | | | | [place] [address] | | | | | | [phone] | | | | | | | | +--------+ + + + + | 06/08/ | Office | Physical Medicine | Rocky Santos, | | | 2019 | Visit | and Rehabilitation | MD [address] | | | | | | [place] | | | | | | [address] | | | | | | | | +--------+ + + + + | 06/16/ | Appointment | Pulmonology | Eveline Jaffe | | | 2019 | | | MD Nichole [address] | | | | | | [address] [place] | | | | | | [place] [address] | | | | | | [phone] | | | | | | | | +--------+ + + + + | 06/16/ | Office | Pulmonology | Eveline Jaffe | | | 2019 | Visit | | MD Nichole [address] | | | | | | [address] [place] | | | | | | [place] [address] | | | | | | [phone] | | | | | | | | +--------+ + + + + | 08/24/ | Office | Cardiology | Anisha Lopez DO | | | 2019 | Visit | | [address] | | | | | | [place], [place] | | | | | | [address] | | | | | | | [...] Performed At | + + + | [facility] | SURES[facility] | | [address] [place] | SOO | | [ rep ct street[address]] [ rep ct [facility] | | st zip] Signed | - IMAGING | | | | | Patient Name: THEA CARMONA Physician: | | | [id number].[id number] : 1945 Age: 67 Sex: F Unit #: [id number] | | | Exam Date: 04/13/13 Location: LAB | | | Report #: [id number] Page: | | | %(RAD)RES..mtdd.print.filter("pg") of %(RAD) | | | RES..mtdd.print.filter("tpg") | | | | | | Accession Number: [id number] | | | CHEST, PA AND LATERAL, [...] | | | Transcribed Date/Time: 04/13/2013 17:08 Waterproof Material Folder: | | | <<Signature on File>> | | | Matheus | | | MD Kang04/13/13 4899 <Electronically signed by Matheus Kapadia MD> | | | Matheus Kapadia MD 04/13/13 [id number] Waterproof Material Folder: [employer] | | | Kgnappjdcokvj80/13/13 1296 Ayana Taylor MD | | | | | + + + + + + + + | Performing | Address | City/State/Zipcode | Phone Number | | Organization | | | | + + + + + | [facility] | [address] | [place] | [phone] | | [facility] | | [address] | | | - IMAGING | | [...] + | [facility] | [address] | [place] | [phone] | | [facility] | | [address] | | | - LABORATORY | | | | + + + + + | [facility] | [address] | [place] | | | [facility] | | [address] | | | - LABORATORY | | | | + + + + + documented in this encounter Visit Diagnoses + + | Diagnosis | + + | Pulmonary nodule Solitary pulmonary nodule | + + documented in this encounter
--- OUTSIDE RECORDS SUMMARY | ~2019-05-05 | XMS | Encounter Summary ---
Demographics + + + | Address | [address] | | | [place] [address] | + + + | Home Phone | | + + + | Preferred Language | Unknown | + + + | Marital Status | | + + + | Anabaptist Affiliation | Unknown | + + + [...] [place] | | | | | [address] | | + + + + + Care Team Providers + +------+ + | Care Undercutter Name | Role | Phone | + +------+ + | Davis Ivan MD | PCP | | + +------+ + Encounter Details +--------+ + + + + | Date | Type | Department | Care Team | Description | +--------+ + + + + | 05/11/ | Hospital [facility] | Offenstein, | Pulmonary abscess | | 2012 | Encounter | MED CTR XRAY [address] | Ayana Looney MD | ([facility]) | | | | [address] | | | | | | [place] [address] | | | | | | [phone] | | | +--------+ + + + [...] | | 2019 | Visit | | [facility] [address] | | | | | | [facility] | | | | | | [place] [address] | | | | | | [phone] | | | | | | | | +--------+ + + + + | 06/08/ | Office | Physical Medicine | Rocky Santos, | | | 2019 | Visit | and Rehabilitation | MD [address] | | | | | | [place] | | | | | | [address] | | | | | | | | +--------+ + + + + | 06/16/ | Appointment | Pulmonology | Eveline Jaffe | | | 2019 | | | MD [address] | | | | | | [address] [place] | | | | | | [place] [address] | | | | | | [phone] | | | | | | | | +--------+ + + + + | 06/16/ | Office | Pulmonology | Eveline Jaffe | | | 2019 | Visit | | MD [address] | | | | | | [address] [place] | | | | | | [place] [address] | | | | | | [phone] | | | | | | | | +--------+ + + + + | 08/24/ | Office | Cardiology | Anisha Lopez DO | | | 2019 | Visit | | [address] | | | | | | [place] | | | | | | [address] | | | | | | | | +--------+ + + + + documented as of this encounter Procedures + +--------+ + + + | Procedure Name | Priori | Date/Time | Associated Diagnosis | Comments | | | ty | | | | + +--------+ + + + | XR CHEST PA AND | Routin | 05/11/2013 | Pulmonary abscess | Results for this | | LATERAL | e | 1:28 PM | (HCC) | procedure are in the | | | | PST | | results section. | + +--------+ + + + documented in this encounter Results XR Chest PA and Lateral (05/11/2013 1:28 PM PST) + + | Specimen | + + | | + + + + + | Narrative | Performed At | + + + | [facility] | [facility] | | Department [address] [place] [address] | [facility] | | [ rep [address]] [ rep [facility] | | [facility]] Signed | - IMAGING | | | | | Patient Name: THEA CARMONA Physician: | | | : 1945 Age: 67 Sex: F Unit #: [id number] | | | Exam Date: 05/11/13 Location: [facility] | | | Report #: [id number] Page: | | | %(RAD)RES..mtdd.print.filter("pg") of %(RAD) | | | RES..mtdd.print.filter("tpg") | | | | | | Accession Number: [id number] | | | CHEST X-RAY CLINICAL HISTORY: FOLLOWUP OF CAVITARY | | | NODULE. COMPARISON: Chest x-rays dated 04/13/2013, | | | 09/19/2008, CT scan of the chest dated 01/28/2013, PET/CT scan dated | | | 03/11/2013. FINDINGS: PA and lateral views of the | | | chest were obtained. Again visualized is a nodular | | | density in the right mid lung that corresponds to a cavitary lesion | | | observed on the previous PET/CT scan and CT scan. This has remained | | | relatively stable in size. The left lung is relatively clear. The | | | cardiomediastinal silhouette is normal. There is mild spondylosis of | | | the thoracic spine. Diffuse osteopenia is present. Some fusion | | | hardware is observed in the low cervical spine. Clips are present in | | | the right upper quadrant of the abdomen. IMPRESSION: | | | 1. STABLE APPEARANCE OF NODULAR DENSITY IN RIGHT MID LUNG THAT | | | CORRESPONDS TO A CAVITATING LESION ON PRIOR CROSS-SECTIONAL IMAGING. | | | LATER EVALUATION WITH CROSS-SECTIONAL IMAGING CAN BE OBTAINED FOR | | | FURTHER EVALUATION IF CLINICALLY INDICATED. Dictated | | | Date/Time: 05/11/2013 13:28 Transcribed Date/Time: 05/11/2013 | | | 13:38 Creative Producer: HENRIQUE <<Signature | | | on File>> | | | Matheus | | | MD Kang05/11/13 1420 <Electronically signed by Matheus Kapadia MD> | | | Matheus Kapadia MD 05/11/13 1328 Creative Producer: Roomlrmedx | | | [email or web address]/11/13 0780 Ayana Taylor MD | | | | | + + + + + + + + | Performing | Address | City/State/Zipcode | Phone Number | | Organization | | | | + + + + + | [facility] | [address] | [place] | [phone] | | [facility] | | [address] | | | - IMAGING | | | | + + + + + documented in this encounter Visit Diagnoses + + | Diagnosis | + + | Pulmonary abscess (HCC) Abscess of lung | + + documented in this encounter
--- OUTSIDE RECORDS SUMMARY | ~2019-05-05 | XMS | Encounter Summary ---
Demographics + + + | Address | [address] | | | [place] [address] | + + + | Home Phone [...] [place] | | | | | [address] | | + + + + + Care Team Providers + +------+ + | Care Char Filter Operator Name | Role | Phone | [...] [facility] | | | | | Recurrent | Vivian, | Scan [address] | | | | | squamous | Lokesh C, | [place] | | | | | cell | MD [address] | [place], [place] | | | | | carcinoma of | [address] | [address] | | | | | lung, right | [place], | Phone: | | | | | (HCC) | [place] [address] | [phone] | | | | | Procedures | Phone: | Fax: | | | | | PET CT Skull | [phone] | [phone] | | | | | Base To Mid | Fax: | | | | | | Thigh | [phone] | | +--------+--------+ + + + + [...] [facility] | | | | | Recurrent | Vivian, | Scan [address] | | | | | squamous | Lokesh C, | [place] | | | | | cell | MD [address] | [place], [place] | | | | | carcinoma of | [address] | [address] | | | | | lung, right | [place], | Phone: | | | | | (HCC) | [place] [address] | [phone] | | | | | Procedures | Phone: | Fax: | | | | | PET CT Skull | [phone] | [phone] | | | | | Base To Mid | Fax: | | | | | | Thigh | [phone] | | +--------+--------+ + + + + Encounter Details +--------+ + + + + | Date | Type | Department | Care Team | Description | +--------+ + + + + | 12/20/ | Hospital | [facility] | Vivian, | 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 | tablet | | 15 | 5 | | tabletIndications: | | | | [...] | | | | | [place] [address] | | | | | | [phone] | | | | | | | | +--------+ + + + + | 06/08/ | Office | Physical Medicine | Rocky Santos, | | | 2019 | Visit | and Rehabilitation | [address] | | | | | | [place] | | | | | | [address] | | | | | | | | +--------+ + + + + | 06/16/ | Appointment | Pulmonology | Eveline Jaffe | | | 2019 | | | MD [address] | | | | | | [address] [place] | | | | | | [place] [address] | | | | | | [phone] | | | | | | | | +--------+ + + + + | 06/16/ | Office | Pulmonology | Eveline Jaffe | | | 2019 | Visit | | MD [address] | | | | | | [address] [place] | | | | | | [place] [address] | | | | | | [phone] | | | | | | | | +--------+ + + + + | 08/24/ | Office | Cardiology | Anisha Lopez DO | | 2019 | Visit | | [address] | | | | | | [place] | | | | | | [address] | | | | | | | | +--------+ + + + + documented as of this encounter Procedures + +--------+ + + + | Procedure Name | Priori | Date/Time | Associated Diagnosis | Comments | | | ty | | | | + +--------+ + + + | PET CT SKULL BASE TO | Routin | 12/20/2014 | Recurrent squamous | Results for this | | MID THIGH | e | 12:48 PM | cell carcinoma of | procedure are in the | | | | PDT | lung, right (HCC) | results section. | + +--------+ + + + documented in this encounter Results PET CT Skull Base To Mid Thigh (12/20/2014 12:48 PM PDT) + + | Specimen | + + | | + + + + -----+ | Narrative | Performed At | + + -----+ | PET CT SKULL | [facility] | | BASE TO MID THIGH 12/20/2014 9:15 AM HISTORY: Follow progress of non | | | small cell lung cancer after a course oftreatment. COMPARISON: | | | Multiple prior PET CT scans most recent 06/21/2014. PROTOCOL: The | | | patient was initially injected with 13.196 mCi FDG F-18. After | | | aone-hour delay, whole body PET images were acquired. Low dose | | | nondiagnostic CTimages were obtained for attenuation correction and | | | fusion. The patient'sfasting blood glucose level at the time of | | | injection was 80 mg/dL. FINDINGS:The previously observed | | | hypermetabolic cavitary lesion within the right upperlobe has | | | decreased in size, and the hypermetabolic right hilar lymph node | | | hasresolved. No significant abnormal uptake is visualized in these 2 | | | locations onthe current examination. There has been interval | | | development of moderateinterstitial thickening in the posterior aspect | | | of the right upper lobe. Thisdemonstrates hypermetabolism with a | | | maximum SUV of 4.42 and would be consistentwith lymphangitic | | | carcinomatosis. There is physiologic uptake in the brain. Focal | | | increased uptake is visualizedin the left adenoid tonsil with maximum | | | SUV of 5.14 that likely representshyperplasia. Low-grade uptake is | | | present of the Waldeyer's ring as well that isconsistent with | | | hyperplasia. At the tip of the tongue, low-grade increaseduptake is | | | present that likely represents muscular motion. Physiologic activityis | | | noted of the parotid glands and submandibular glands. Increased | | | uptake is inthe glottis that likely represents phonation. There is | | | physiologic uptake in the heart. Mild atherosclerosis is present. | | | Aleft central line is observed with tip in the distal SVC. There is | | | physiologic activity in the liver, spleen, kidneys, and bowel. | | | Moderateto severe atherosclerosis is visualized of the aorta. There is | | | fusion hardwareof the lumbar spine. Physiologic activity is in the | | | bladder. A moderate size ventral hernia isobserved of the anterior | | | pelvic wall with a loop of transverse colon extendinginto it. There is | | | no evidence for obstruction. 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 Interval decreased size of previous | | | observed hypermetabolic cavitary lesionwithin the right upper lobe and | | | resolution of previous hypermetabolic righthilar lymph node. Dictated | | | and Signed by: Matheus Kapadia MD Electronically signed: 12/21/2014 | | | 4:41 PM | | | | | |IMPRESSION - | | |Interval development of moderate interstitial thickening in posterior aspect of | | |the right upper lung lobe with hypermetabolism that is most consistent with | | |lymphangitic carcinomatosis. | | | | | |Interval decreased size of previous observed hypermetabolic cavitary lesion | | |within the right upper lobe and resolution of previous hypermetabolic right | | |hilar lymph node. | | | | | |Dictated and Signed by: Matheus Kapadia MD | | | Electronically signed: 12/21/2014 4:41 PM | | | | | + + -----+ + + | Procedure Note | + + | Fabián, Rad Results In - 12/21/2014 4:[address] SKULL BASE TO MID THIGH | | 12/20/2014 9:15 AMHISTORY: Follow progress of non small cell lung cancer after a course | | oftreatment.COMPARISON: Multiple prior PET CT scans most recent 06/21/2014.PROTOCOL: The | | patient was initially injected with 13.196 mCi FDG F-18. After aone-hour delay, whole | | body PET images were acquired. Low dose nondiagnostic CTimages were obtained for | | attenuation correction and fusion. The patient'sfasting blood glucose level at the time | | of injection was 80 mg/dL.FINDINGS:The previously observed hypermetabolic cavitary | | lesion within the right upperlobe has decreased in size, and the hypermetabolic right | | hilar lymph node hasresolved. No significant abnormal uptake is visualized in these 2 | | locations onthe current examination. There has been interval development of | | moderateinterstitial thickening in the posterior aspect of the right upper lobe. | | Thisdemonstrates hypermetabolism with a maximum SUV of 4.42 and would be consistentwith | | lymphangitic carcinomatosis.There is physiologic uptake in the brain. Focal increased | | uptake is visualizedin the left adenoid tonsil with maximum SUV of 5.14 that likely | | representshyperplasia. Low-grade uptake is present of the Waldeyer's ring as well that | | isconsistent with hyperplasia. At the tip of the tongue, low-grade increaseduptake is | | present that likely represents muscular motion. Physiologic activityis noted of the | | parotid glands and submandibular glands. Increased uptake is inthe glottis that likely | | represents phonation.There is physiologic uptake in the heart. Mild atherosclerosis is | | present. Aleft central line is observed with tip in the distal SVC.There is physiologic | | activity in the liver, spleen, kidneys, and bowel. Moderateto severe atherosclerosis is | | visualized of the aorta. There is fusion hardwareof the lumbar spine.Physiologic | | activity is in the bladder. A moderate size ventral hernia isobserved of the anterior | | pelvic wall with a loop of transverse colon extendinginto it. There is no evidence for | | obstruction.IMPRESSION -Interval development of moderate interstitial thickening in | | posterior aspect ofthe right upper lung lobe with hypermetabolism that is most | | consistent withlymphangitic carcinomatosis.Interval decreased size of previous observed | | hypermetabolic cavitary lesionwithin the right upper lobe and resolution of previous | | hypermetabolic righthilar lymph node.Dictated and Signed by: Matheus Kapadia MD | | Electronically signed: 12/21/2014 4:41 PM | |left central line is observed with tip in the distal SVC. | | | |There is physiologic activity in the liver, spleen, kidneys, and bowel. Moderate | |to severe atherosclerosis is visualized of the aorta. There is fusion hardware | |of the lumbar spine. | | | |Physiologic activity is in the bladder. A moderate size ventral hernia is | |observed of the anterior pelvic wall with a loop of transverse colon extending | |into it. There is no evidence for obstruction. | | | |IMPRESSION - | |Interval development of moderate interstitial thickening in posterior aspect of | |the right upper lung lobe with hypermetabolism that is most consistent with | |lymphangitic carcinomatosis. | | | |Interval decreased size of previous observed hypermetabolic cavitary lesion | |within the right upper lobe and resolution of previous hypermetabolic right | |hilar lymph node. | | | |Dictated and Signed by: Matheus Kapadia MD | | Electronically signed: 12/21/2014 4:41 PM | + + + +---------+ + [...] +--------+ + +------+------+ | fluorine-18 FDG injection | Given | 12/21/19 | 13.196 | | | | 13.196 millicurie 13.196 | | 15 8:37 | -millicu | | | | -millicurie, Intravenous, ONCE, | | AM PDT | lenka | | | | 12/20/14 at 0845, For 1 dose | | | | | | + +--------+ + +------+------+ +---+---+ | | | +---+---+ documented in this encounter"
--- OUTSIDE RECORDS SUMMARY | ~2019-05-05 | XMS | Encounter Summary ---
Demographics + + + | Address | [address] | | | [place] [address] | + + + | Home Phone [...] [place] | | | | | [id number] | | + + + + + Care Team Providers + +------+ + | Care Slurry Tank Operator Name | Role | Phone | + +------+ + | Davis Gilbert MD | PCP | | + +------+ + Encounter Details +--------+ + + + + | Date | Type | Department | Care Team | Description | +--------+ + + + + | 03/29/ | Hospital | [facility] | Silviano Cabrera MD | | | 2013 - | Encounter | [facility] | [address] | | | | | [place] | [facility], | | | 04/07/ | | [place], [place] | [place] [address] | | | 2013 | | [address] | [phone] | | | | | [phone] | | | +--------+ + + + [...] + documented as of this encounter Discharge Summaries Vidal Dalton ARNP - 04/07/2014 10:16 AM PST Discharge Summaries by RITA Rubio at 04/07/14 1016 Author: RITA Rubio Service: Orthopedic Surgery Author Type: Advanced Registered Charanjit simons Practitioner Filed: 04/07/14 1019 Date of Service: 04/07/14 1016 Status: Signed Load Out Person: RITA Rubio (Advanced Registered Nurse Practitioner) [facility] Service: Orthopedic Surgery Brief Post-op Discharge Note DISCHARGE DIAGNOSES: Lumbar spondylolisthesis L4-5 and L5-S1 Procedures: Procedure(s) with comments: LUMBAR - FUSION - POST - L 4/S1 LUMBAR - DECOMPRESSION & FUSION This patient was transferred to the recovery area post-operatively and has experienced no d ifficulties at the time of my assessment. The patient is anticipated to continue to meet di scharge criteria per protocol as assessed by nursing and may be discharged at that time with designated caregiver. PT/OT was brought in to help with the transition post-op. Patient sub sequently improved throughout the course of her hospital stay. IPR was c/s during hospital s teresa and recommended patient to go to SNF. SNF was prepared for discharge but patient refused and decided to go home with home health. She will be cared for her significant other post-o p. Disposition: Home Condition: Stable Code Status: Full Code Use of TLSO brace, activity restrictions and dressing changes were d/w at length prior to d ischarge. Follow up: Dr. Cabrera within 2 weeks [id number] Medication List START taking these medications oxyCODONE-acetaminophen 5-325 MG per tablet QTY: 30 tablet Refills: 0 Commonly known as: PERCOCET Take 1 tablet by mouth every 4 (four) hours as needed for Pain. polyethylene glycol packet QTY: 14 each Refills: 3 Commonly known as: GLYCOLAX Take 17 g by mouth daily as needed. CHANGE how you take these medications * DSS 100 MG Caps QTY: 60 capsule Refills: 1 Take 100 mg by mouth 2 (two) times daily. What changed: Another medication with the same name was added. Make sure you understand ho w and when to take each. * DSS 100 MG Caps QTY: 60 capsule Refills: 1 Take 200 mg by mouth 2 (two) times daily. What changed: You were already taking a medication with the same name, and this prescripti on was added. Make sure you understand how and when to take each. * HYDROmorphone 4 MG tablet Refills: 0 Commonly known as: DILAUDID What changed: Another medication with the same name was added. Make sure you understand ho w and when to take each. * HYDROmorphone 4 MG tablet QTY: 90 tablet Refills: 0 Commonly known as: DILAUDID Take 1 tablet by mouth every 3 (three) hours as needed for Pain. What changed: You were already taking a medication with the same name, and this prescripti on was added. Make sure you understand how and when to take each. * senna 8.6 MG tablet QTY: 60 tablet Refills: 1 Commonly known as: SENOKOT Take 2 tablets by mouth 2 (two) times daily. What changed: Another medication with the same name was added. Make sure you understand ho w and when to take each. * senna 8.6 MG tablet QTY: 120 tablet Refills: 11 Commonly known as: SENOKOT Take 2 tablets by mouth 2 (two) times daily. What changed: You were already taking a medication with the same name, and this prescripti on was added. Make sure you understand how and when to take each. * Notice: This list has 6 medication(s) that are the same as other medications prescribed for you. Read the directions carefully, and ask your doctor or other care provider to revie w them with you. CONTINUE taking these medications albuterol (2.5 MG/3ML) 0.083% nebulizer solution Refills: 0 Commonly known as: PROVENTIL aspirin 81 MG tablet Refills: 0 calcium carbonate 500 MG chewable tablet QTY: 60 tablet Refills: 1 Commonly known as: TUMS Take 2 tablets by mouth every 6 (six) hours as needed. cloNIDine 0.1 MG tablet Refills: 0 Commonly known as: CATAPRES diazepam 10 MG tablet Refills: 0 Commonly known as: VALIUM folic acid 1 MG tablet Refills: 0 Commonly known as: FOLVITE Iron 325 (65 FE) MG Tabs Refills: 0 levothyroxine 75 MCG tablet Refills: 0 Commonly known as: SYNTHROID lisinopril 10 MG tablet Refills: 0 Commonly known as: ZESTRIL Magnesium 100 MG Caps Refills: 0 methotrexate 2.5 MG tablet Refills: 0 Commonly known as: TREXALL morphine 30 MG 12 hr tablet QTY: 60 tablet Refills: 0 Commonly known as: MS CONTIN Take 1 tablet by mouth every 12 (twelve) hours. omeprazole 20 MG capsule Refills: 0 Commonly known as: PRILOSEC PLAVIX 75 MG tablet Refills: 0 Generic drug: clopidogrel predniSONE 5 MG tablet Refills: 0 Commonly known as: DELTASONE simvastatin 40 MG tablet Refills: 0 Commonly known as: ZOCOR venlafaxine 75 MG 24 hr capsule Refills: 0 Commonly known as: EFFEXOR-XR Vitamin D 2000 UNITS Caps Refills: 0 Where to Get Your Medications These are the prescriptions that you need to pick up attendant. You may get the following medications from any pharmacy - DSS 100 MG Caps - HYDROmorphone 4 MG tablet - oxyCODONE-acetaminophen 5-325 MG per tablet - polyethylene glycol packet - senna 8.6 MG tablet RITA MONROE 04/07/2014 documented in this enc ounter Medications at Time of Discharge + + [...] documented as of this encounter Progress Notes Conversion Transaction, Provider Unknown - 04/07/2014 4:19 PM PSTFormatting of this note m ight be different from the original. Nurse Progress Note by Mayelin Rankin RN at 04/07/141618 Author: Mayelin aRnkin RN Service: (none) Author Type: Registered Nurse Filed: 04/07/141619 Date of Service: 04/07/141618 Status: Signed Load Out Person: Mayelin Rankin RN (Registered Nurse) Discharged to home with instructions, prescriptions, and belongings. Accompanied by mili menendez Eager to be discharged. Ambulating with TLSO on, voids, pain controlled with PO pain meds . Appetite good, no nausea. onver robert Transaction, Provider Unknown - 04/07/2014 2:21 PM PST Therapy Progress Note by BRITTANY Walters at 04/07/14 1421 Author: BRITTANY Walters Service: (none) Author Type: Occupational Therapist Filed: 04/07/14 3540 Date of Service: 11/07/14 1421 Status: Signed Load Out Person: BRITTANY Walters (Account Classification Clerk) 04/07/14 1421 OT Last Visit OT Received On 04/07/14 Reason for Treatment Spinal surgery Requires OT Follow Up Yes Assistance Required 1 person Apartment Coordinator Needed No Family/Caregiver Present Yes Precautions Spinal Precautions Lumbar Other Precautions fall risk Other Comments Comments pt supine in bed upon FLAVOR MAKER arrival. pt waiting for X-ray to be taken. Pt pr esent. Discussed any concerns with ADL dressing task. Pt and stating no concerns, wi ll buy A/E for LE dressing later. Discussed fall prevention and wlaker safety while transpor ting/retrieval of items using A/E. pt and state understanding. Pt able to recall 3/3 back percautions Activity Tolerance Activity Tolerance Patient limited by fatigue;Patient tolerated treatment well Safety Devices Safety Devices in Place Yes Type of Devices Call lite in place 04/07/14 142 Plan Treatment Interventions (per OT POC) Progress Slow progress, decreased activity tolerance Requires OT Follow Up Yes Recommendation Recommendation Short-term skilled OT Equipment Recommended Structural Worker;Sock aid;Elastic shoe laces;Sponge long handled Education Completed: Education Topic: ADL, A/E, walker safety, fall prevention Completed with: Patient, Spouse Completed by: , Verbal Education, Demonstration Response to Education: Stated Understanding,Reinforcement Necessary for Education Unders tanding Occupational Therapy Plan: Continue OT treatment per POC onver robert Transaction, Provider Unknown - 04/07/2014 1:06 PM PST Nurse Progress Note by Mayelin Rankin RN at 04/07/14 1306 Author: Mayelin Rankin RN Service: (none) Author Type: Registered Nurse Filed: 04/07/14 1308 Date of Service: 04/07/14 1306 Status: Signed Load Out Person: Mayelin Rankin RN (Registered Nurse) Patient's significant other came to desk stating that he didn't want her to be discharged u ntil a lumbar x-ray was done. Vidal Dalton notified and order received. onver robert Martinezaction, Provider Unknown - 04/07/2014 11:15 AM PST Case Management by CLAIRE Lee at 04/07/14 1115 Author: CLAIRE Lee Service: (none) Author Type: Newspaper Editor Managing Filed: 04/07/14 1117 Date of Service: 04/07/14 1115 Status: Signed Load Out Person: CLAIRE Lee (Newspaper Editor Managing) arranged for [facility] physical therapy as they are the provider for the [facility] area. Pt had no other resource concerns at this time. Colin YUNSW onver robert Transaction, Provider Unknown - 04/07/2014 10:33 AM PST Therapy Progress Note by Denver Arias PTA at 04/07/14 1033 Author: Denver Arias PTA Service: (none) Author Type: Feller Buncher Operator Filed: 04/07/14 1101 Date of Service: 04/07/14 1033 Status: Signed Load Out Person: Denver Arias PTA (Feller Buncher Operator) 04/07/14 1033 PT Last Visit PT Received On 04/07/14 Reason for Treatment Spinal surgery Requires PT Follow Up Yes Assistance Required 1 person Precautions Spinal Precautions Lumbar Other Comments Comments pt was more awake and in less pain today. Very willing for PT tx. pt also donning and doffing back brace independently. Cognition Overall Cognitive Status WFL Orientation Level Oriented Bed Mobility Rolling Supervison Sidelying to Sit Supervision Transfers Sit to/from Stand Supervision Mobility Ambulation Assistance Supervision Maximal Ambulation Distance (feet) 400 Total Ambulation Distance (feet) 400 Distance limited by? Therapist/staff discretion Pattern Alternating Assistive Device Walker front wheeled Activity Tolerance Activity Tolerance Patient tolerated treatment without report of fatigue Plan Treatment/Interventions Continue per Primary PT POC Recommendation Recommendations Home with 24 hr supervision/assist onver robert Transaction, Provider Unknown - 04/06/2014 4:31 PM PST Nurse Progress Note by Shayne Chen RN at 04/06/14 1631 Author: Shayne Chen RN Service: (none) Author Type: Registered Nurse Filed: 04/06/14 1646 Date of Service: 04/06/14 1631 Status: Signed Load Out Person: Shayne Chen RN (Registered Nurse) Discussed POC with patient and patient's spouse who state they wish for patient to be disch arged to home on Thursday04/07/14 in lieu of [facility]/SNF. Patient spouse is requesting home PT as well as a lumbar xray prior to discharge home on Thursday. Note left for Dr. Cabrera. SHAYNE CHEN RN 04/06/2014 4:46 PM Min Uribe PT - 04/06/2014 2:50 PM PSTFormatting of this note might be different from the o riginal. Therapy Progress Note by Min Choe PT at 04/06/14 1450 Author: Min Choe PT Service: (none) Author Type: Physical Therapist Filed: 04/06/14 3792 Date of Service: 04/06/14 1450 Status: Signed Load Out Person: Min Choe PT (Physical Therapist) 04/06/14 1450 PT Last Visit PT Received On 04/06/14 Reason for Treatment Spinal surgery Requires PT Follow Up Yes Follow up PT Only? No Assistance Required 1 person Precautions Spinal Precautions Lumbar;TLSO on when upright Other Precautions fall risk Other Comments Comments Upon PT arrival, pt supine in bed with HOB elevated. Pt agreeable to PT. SBA for b ed mobility. Alfredo for donning/doffing TLSO. SBA for STS and ambulation today. Pt will need t o practice stairs prior to return home. At the end of the session, pt supine in bed with HOB elevated and call light livia reach. RN aware. bed alarm on. vital signs: at rest: 128/60 , HR 69, 96%RA Cognition Overall Cognitive Status WFL Orientation Level Oriented Bed Mobility Rolling Standby assist Sidelying to Sit Standby assist Transfers Sit to/from Stand Standby assist Mobility Ambulation Assistance Standby assist Maximal Ambulation Distance (feet) 20, 300 ft Total Ambulation Distance (feet) 320 Distance limited by? Patient's ability Pattern Alternating;Decreased baron Assistive Device Walker front wheeled Activity Tolerance Activity Tolerance Patient limited by fatigue Plan Treatment/Interventions Continue per Primary PT POC Progress Progressing toward goals Recommendation Recommendations Home with 24 hr supervision/assist Vidal Galvez ARNP - 04/06/2014 2:12 PM PST Progress Notes by RITA Rubio at 04/06/14 1412 Author: RITA Rubio Service: Orthopedic Surgery Author Type: Advanced Registered N sophye Practitioner Filed: 04/06/14 1414 Date of Service: 04/06/14 1412 Status: Signed Load Out Person: RITA Rubio (Advanced Registered Nurse Practitioner) [facility] Service: Orthopedic Surgery Note Doing well. Leg pain continues to improve. Ambulated 160' with PT today. BP 134/63 | Pulse 77 | Temp(Src) 99 F (37.2 C) (Oral) | Resp 20 | Ht 1.575 m (5' 2.01") | Wt 76.3 kg (168 lb 3.4 oz) | BMI 30.76 kg/m2 | SpO2 94% Dressing anteriorly was removed. No signs of dehiscence. Excellent LE strength while on supine position. Calves soft bilaterally. Recent Na was slightly low. No signs of chest pain or dizziness. On NaCl IV continuous. Plan: DC to SNF 04/07/14 vs home? RITA MONROE 04/06/2014 Min Hsu PT - 04/06/2014 11:25 AM PST Therapy Progress Note by Min Choe PT at 04/06/14 1125 Author: Min Choe PT Service: (none) Author Type: Physical Therapist Filed: 04/06/14 1246 Date of Service: 04/06/14 1125 Status: Signed Load Out Person: Min Choe PT (Physical Therapist) 04/06/14 1125 PT Last Visit PT Received On 04/06/14 Reason for Treatment Spinal surgery Requires PT Follow Up Yes PT Eval/Reassessment Date 04/06/14 Assistance Required 1 person Precautions Spinal Precautions Lumbar;TLSO on when upright Other Precautions fall risk Other Comments Comments Upon PT arrival, pt supine in bed with HOB elevated. Pt agreeable to PT. RN in julieta m to give pt her pain medication. SBA for bed mobility, modA for doning/doffing TLSO. Alfredo f or STS (limited due to pain). SBA for ambulation for 160 ft with FWW. No loss of balance not ed during ambulation today. Pt returned to room and sitting in a recliner. Chair alarm on. R N aware of pt's staus. vital signs; at rest: 95%RA, HR 76, 134/63 Cognition Overall Cognitive Status WFL Orientation Level Oriented Bed Mobility Rolling Standby assist Sidelying to Sit Standby assist Transfers Sit to/from Stand Minimal assist (steadying/contact guard);Standby assist Mobility Ambulation Assistance Standby assist Maximal Ambulation Distance (feet) 160 ft Total Ambulation Distance (feet) 160 ft Distance limited by? Patient's ability Pattern Alternating;Decreased baron;Right swing foot doesn't pass stance foot;Left swing foot doesn't pass stance foot Assistive Device Walker front wheeled Supine Supine-Exercise Type Quad sets;Ankle pumps;Heel slides Supine-Exercise Comments Pt performed the exercises on a recliner, x10 BLE Activity Tolerance Activity Tolerance Patient limited by pain Plan Treatment/Interventions Continue per Primary PT POC Progress Progressing toward goals PT Frequency 5-7x/wk;Once per day;Twice a day Recommendation Recommendations Home with 24 hr supervision/assist onversion Transacti on, Provider Unknown - 04/05/2014 3:41 PM PSTFormatting of this note might be different fro m the original. Nurse Progress Note by Noreen Sharma RN at 04/05/14 4461 Author: Noreen Sharma RN Service: (none) Author Type: Registered Nurse Filed: 04/05/14 0066 Date of Service: 04/05/141540 Status: Signed Load Out Person: Noreen Sharma RN (Registered Nurse) Patient requesting pain medication from POULTRY HELPER. When returning to the room with the medicatio n the patient was sleeping soundly. Medication held at this time. Dawna Taylor ARNP - 04/05/2014 2:34 PM PSTFormatting of this note might be different from the mabel ginal. Progress Notes by RITA Rubio at 04/05/14 1434 Author: RITA Rubio Service: Orthopedic Surgery Author Type: Advanced Registered N sophye Practitioner Filed: 04/05/14 1436 Date of Service: 04/05/141433 Status: Signed Load Out Person: RITA Rubio (Advanced Registered Nurse Practitioner) [facility] Service: Orthopedic Surgery Progress Note Hospital Day: LOS: 7 days Post-Op Day: 5 Days Post-Op SUBJECTIVE Patient Summary: Progressing well with PT. Had a bowel movement. Breathing much hill r. Pain well controlled. Leg pain better. Scheduled Medications albuterol 2.5 mg Nebulization 4x daily aspirin 325 mg Oral Daily with breakfast cholecalciferol 2,000 Units Oral Daily cloNIDine 0.1 mg Oral BID docusate sodium 200 mg Oral BID ferrous sulfate (65 FE) 1 tablet Oral Daily furosemide 20 mg Oral Daily levothyroxine 75 mcg Oral Daily lisinopril 10 mg Oral Daily Magnesium 250 mg Oral Daily omeprazole 20 mg Oral BID piperacillin-tazobactam 3.375 g Intravenous Q8H predniSONE 5 mg Oral BID scopolamine 1 patch Transdermal Q72H senna 2 tablet Oral BID simvastatin 40 mg Oral Daily venlafaxine 75 mg Oral Daily Continuous Infusions sodium chloride 110 mL/hr at 04/04/142051 PRN Medications acetaminophen, acetaminophen, bisacodyl, calcium carbonate, diazepam, diphenhydrAMINE, diph enhydrAMINE, HYDROmorphone, magnesium hydroxide, naloxone, ondansetron, ondansetron, oxyCODO NE-acetaminophen, polyethylene glycol, promethazine OBJECTIVE Vital Signs: BP 128/63 | Pulse 66 | Temp(Src) 98.6 F (37 C) (Oral) | Resp 24 | Ht 1.575 m (5' 2.01") | Wt 77.2 kg (170 lb 3.1 oz) | BMI 31.12 kg/m2 | SpO2 97% Temp: [98.3 F (36.8 C)-98.9 F (37.2 C)] 98.6 F (37 C) (04/05 1130) BP: (128-166)/(63-73) 128/63 mmHg (04/05 1130) Heart Rate: [63-71] 66 (04/05 1130) Resp: [16-24] 24 (04/05 737) SpO2: [96 %-98 %] 97 % (04/05 1130) Incision c/d/i. Calves soft. Chest: Clear DATA CBC: Lab Results Component Value Date WBC 15.1* 04/01/2014 RBC 2.74* 04/01/2014 HGB 8.4* 04/01/2014 HCT 25.6* 04/01/2014 MCV 93.6 04/01/2014 MCH 30.5 04/01/2014 MCHC 32.6 04/01/2014 RDW 64.8* 04/01/2014 PLT 163 04/01/2014 MPV 7.9 04/01/2014 DIFFTYPE MANUAL 04/01/2014 BMP: Lab Results Component Value Date NA 129* 04/01/2014 K 4.1 04/01/2014 CL 100 04/01/2014 CO2 22* 04/01/2014 ANIONGAP 11 04/01/2014 GLUF 117* 04/01/2014 BUN 17 04/01/2014 CREATININE 0.79 04/01/2014 BCR 22 04/01/2014 CA 8.1* 04/01/2014 EGFR >60 04/01/2014 PROBLEM LIST Active Problems: * No active hospital problems. * ASSESSMENT & PLAN Discuss with patient and significant other about discharging to SNF. Plan is to discharge p atient to SNF by Thursday04/07/2014. Continue present treatment. Disposition: inpatient Code Status: Full Code RITA MONROE 04/05/2014 onversion Transaction , Provider Unknown - 04/05/2014 2:07 PM PST Progress Notes by Archana Adams RD at 04/05/14 3975 Author: Archana Adams RD Service: (none) Author Type: Registered Dietitian Filed: 04/05/14 1424 Date of Service: 04/05/14 054 Status: Signed Load Out Person: Archana Adams RD (Registered Dietitian) Nutrition Assessment and Recommendations Assessment: Pt triggered for length of stay. BMI: 30.5 kg/m2, (class I obesity) IBW: 50 kg (152%) ABW: 56.4 kg Food and nutrition-related hx: Pt reports that she does not follow any special diets at [facility], although she has been instructed to follow a low cholesterol, low sodium diet. Appetite w as very good SALESPERSON TERRAZZO TILES. Current intake: Pt reports intake is currently poor r/t pain and difficulty chewing. Pt ate bites of oatmeal and toast at breakfast, and bites of soup, toast, and jell-o, and bananas at lunch. States that pain is improving and pt anticipates appetite will improve. Does not h ave her false teeth, has difficulty chewing. Denies difficulty swallowing. Ordering own meal s and knows what she can and cannot chew easily. Drank a chocolate Ensure this afternoon dave t brought in for pt. Estimated needs: Kcal: 6071-4525 kcal (25-30 kcal/kg adj BW) Protein: 56.4- 68 g (1.0-1.2 g/kg adj BW) Nutrition Diagnosis: Inadequate oral intake related to decreased ability to consume suffici ent energy as evidenced by report of poor po, difficulty chewing, pain. Goals: Pt will consume 100% estimated nutritional requirements. Recommendations: Anticipate intake will begin to improve with pain management. Continue gen eral diet. Send Ensure TID between meals. Encouraged po intake as tolerated. Monitoring: Will follow up in [address] onver robert Martinezaction, Provider Unknown - 04/05/2014 2:06 PM PST Nurse Progress Note by Noreen Sharma RN at 04/05/14 0595 Author: Noreen Sharma RN Service: (none) Author Type: Registered Nurse Filed: 04/05/14 8989 Date of Service: 04/05/141405 Status: Signed Load Out Person: Noreen Sharma RN (Registered Nurse) Patient's significant other is vocal about not wanting patient to go to a SNF. He is reque sting to appeal discharge to SNF. AMANDA Drake aware. Patient also lost dentures 2 days ago. Kitchen, linen services, risk management, and Astrid (surgical manager floor) all notified. onver robert Transaction, Provider Unknown - 04/05/2014 2:04 PM PST Therapy Progress Note by Denver Arias PTA at 04/05/14 1404 Author: Denver Arias PTA Service: (none) Author Type: Feller Buncher Operator Filed: 04/05/14 1423 Date of Service: 04/05/14 1404 Status: Signed Load Out Person: Denver Arias PTA (Feller Buncher Operator) 04/05/14 1404 PT Last Visit PT Received On 04/05/14 Reason for Treatment Spinal surgery Requires PT Follow Up Yes Assistance Required 1 person Precautions Spinal Precautions Lumbar Other Comments Comments pt was more awake and ready for PT this afternoon Cognition Overall Cognitive Status WFL Orientation Level Oriented Bed Mobility Rolling Standby assist Sidelying to Sit Standby assist Transfers Sit to/from Stand Standby assist Mobility Ambulation Assistance Standby assist Maximal Ambulation Distance (feet) 200 Total Ambulation Distance (feet) 200 Distance limited by? Patient's ability Pattern Alternating Assistive Device Walker front wheeled Activity Tolerance Activity Tolerance Patient tolerated treatment without report of fatigue Plan Treatment/Interventions Continue per Primary PT POC Progress Progressing toward goals Recommendation Recommendations Home with 24 hr supervision/assist onver robert Transaction, Provider Unknown - 04/05/2014 1:50 PM PST Therapy Progress Note by BRITTANY Walters at 04/05/14 1350 Author: BRITTANY Walters Service: (none) Author Type: Occupational Therapist Filed: 04/05/14 2346 Date of Service: 04/05/14 1350 Status: Signed Load Out Person: BRITTANY Walters (Account Classification Clerk) 04/05/14 1350 OT Last Visit OT Received On 04/05/14 Assistance Required 1 person Apartment Coordinator Needed No Family/Caregiver Present Yes Precautions Spinal Precautions Lumbar Other Precautions fall precaution Other Comments Comments pt supine with HOB slightly elevated. pt willing to discuss dressing tasks while i n bed. Able to recall 2/3 precautions. demonstrated use of coppersmith apprentice/sock aide and shoe horn f or LE dressing tasks. LE Dressing LE Dressing Yes LE Dressing Adaptive Equipment Structural Worker;Sock aide;Shoe horn LE Dressing Where Assessed Bed level LE Dressing Comments pt to want to just discuss A/E usage for LE dressing task. pt to benef it from practicing ADL tasks with use of A/E. Activity Tolerance Activity Tolerance Patient limited by fatigue Safety Devices Safety Devices in Place Yes Type of Devices Call lite in place 04/05/14 1350 Plan Treatment Interventions (per OT POC) Progress Slow progress, decreased activity tolerance Requires OT Follow Up Yes Recommendation Recommendation Short-term skilled OT Equipment Recommended Structural Worker;Sock aid;Sponge long handled Education Completed: Education Topic: ADL, A/E Completed with: Patient, Spouse Completed by: Verbal Education, Demonstration Response to Education: Stated Understanding, Reinforcement Necessary for Education Unde rstanding Occupational Therapy Plan: Continue OT treatment per POC onver robert Martinezaction, Provider Unknown - 04/05/2014 11:15 AM PST Case Management by CLAIRE Lee at 04/05/14 2939 Author: CLAIRE Lee Service: (none) Author Type: Newspaper Editor Managing Filed: 04/05/14 7031 Date of Service: 04/05/141114 Status: Addendum Load Out Person: CLAIRE Lee (Newspaper Editor Managing) Related Notes: Original Note by CLAIRE Lee (Newspaper Editor Managing) filed at 04/05/14 8001 KRYSTAL met pt for discharge planning. CM educated her regarding SNF placement for rehab and pro vided pt with a list of local SNFs. Pt agreed to SNF placement and requested [facility]. CM fax ed pt's info to [facility] and spoke with their community service officer coordinator who agreed to accept pt upon discharge. KRYSTAL informed pt & her significant other who was upset that pt's false teeth a re missing and stated pt is not going anywhere until she has teeth. KRYSTAL phoned [facility] Risk Management Dept and spoke with Bryant who stated the Surgical Medart Operator will need to be no tified. CM notified Astrid the Surgical Medart Operator and filed a QRR. CM also notified pt's RN . Pt had no other resource concerns at this time. Discharge Plan: SNF [facility] onver robert Transaction, Provider Unknown - 04/05/2014 10:24 AM PST Therapy Progress Note by Denver Arias PTA at 04/05/14 1024 Author: Denver Arias PTA Service: (none) Author Type: Feller Buncher Operator Filed: 04/05/14 1030 Date of Service: 04/05/14 1024 Status: Signed Load Out Person: Denver Arias PTA (Feller Buncher Operator) 04/05/14 1024 PT Last Visit PT Received On 04/05/14 Reason for Treatment Spinal surgery Requires PT Follow Up Yes Assistance Required 1 person Precautions Spinal Precautions Lumbar Other Comments Comments pt was more willing for PT tx today, but still very limited by pain. Cognition Overall Cognitive Status WFL Orientation Level Oriented Transfers Sit to/from Stand Standby assist Mobility Ambulation Assistance Standby assist Maximal Ambulation Distance (feet) 40 Total Ambulation Distance (feet) 40 Distance limited by? Patient's ability Pattern Alternating Assistive Device Walker front wheeled Activity Tolerance Activity Tolerance Patient tolerated treatment without report of fatigue Plan Treatment/Interventions Continue per Primary PT POC Progress Progressing toward goals Recommendation Recommendations Home with 24 hr supervision/assist onver robert Transaction, Provider Unknown - 04/04/2014 9:43 PM PST Progress Notes by Leandra Rain RRT at 04/04/142142 Author: Leandra Rain RRT Service: (none) Author Type: Registered Respiratory Therapist Filed: 04/04/142143 Date of Service: 04/04/142142 Status: Signed Load Out Person: Leandra Rain RRT (Registered Respiratory Therapist) Please change Mrs. Carmona Albuterol nebs to PRN, Thanks Respiratory Therapy onnarendra jones Transaction, Provider Unknown - 04/04/2014 2:12 PM PST Therapy Progress Note by Denver Arias PTA at 04/04/14 1412 Author: Denver Arias PTA Service: (none) Author Type: Feller Buncher Operator Filed: 04/04/14 1419 Date of Service: 04/04/14 141 Status: Signed Load Out Person: Denver Arias PTA (Feller Buncher Operator) 04/04/14 1412 PT Last Visit PT Received On 04/04/14 Reason for Treatment Spinal surgery Requires PT Follow Up Yes Assistance Required 1 person Other Comments Comments pt willing participant for PT today, but limited by pain/fatigue. Pt also requires assistnace donning and doffing brace. Cognition Overall Cognitive Status WFL Orientation Level Oriented Bed Mobility Rolling Standby assist Sidelying to Sit Standby assist Sit to Sidelying Standby assist Scooting Standby assist Transfers Sit to/from Stand Standby assist Mobility Ambulation Assistance Standby assist Maximal Ambulation Distance (feet) 35 Total Ambulation Distance (feet) 35 Distance limited by? Patient's ability Pattern Alternating Assistive Device Walker front wheeled Activity Tolerance Activity Tolerance Patient limited by pain;Patient limited by fatigue Plan Treatment/Interventions Continue per Primary PT POC Progress Progressing toward goals Recommendation Recommendations Home with 24 hr supervision/assist onver robert Transaction, Provider Unknown - 04/04/2014 1:16 PM PST Case Management by CLAIRE Lee at 04/04/14 1316 Author: CLAIRE Lee Service: (none) Author Type: Newspaper Editor Managing Filed: 04/04/14 1317 Date of Service: 04/04/14 1316 Status: Signed Load Out Person: CLAIRE Lee (Newspaper Editor Managing) Pt has an IPR consult pending. Pt has no other discharge needs at this time. CM will contin ue to follow as needed. [facility] onver robert Martinezaction, Provider Unknown - 04/04/2014 10:23 AM PST Therapy Progress Note by Denver Arias PTA at 04/04/14 1023 Author: Denver Arias PTA Service: (none) Author Type: Feller Buncher Operator Filed: 04/04/14 1025 Date of Service: 04/04/14 1023 Status: Signed Load Out Person: Denver Arias PTA (Feller Buncher Operator) 04/04/14 1023 PT Last Visit PT Received On 04/04/14 Reason for Treatment Spinal surgery Requires PT Follow Up Yes Assistance Required 1 person Precautions Spinal Precautions Lumbar;TLSO on when upright Other Comments Comments pt having more pain today Cognition Overall Cognitive Status WFL Orientation Level Oriented Bed Mobility Rolling Standby assist Sidelying to Sit Standby assist Sit to Sidelying Standby assist Scooting Standby assist Transfers Sit to/from Stand Standby assist Mobility Ambulation Assistance Standby assist Maximal Ambulation Distance (feet) 25 Total Ambulation Distance (feet) 25 Distance limited by? Patient's ability Pattern Alternating;Decreased baron Assistive Device Walker front wheeled Activity Tolerance Activity Tolerance Patient limited by pain Plan Treatment/Interventions Continue per Primary PT POC Progress Progressing toward goals Recommendation Recommendations Home with 24 hr supervision/assist Silviano Pearl Jr., MD - 04/04/2014 7:02 AM PSTFormatting of this note might be different from th e original. Progress Notes by Silviano Cabrera MD at 04/04/14 07 Author: Silviano Cabrera MD Service: Orthopedic Surgery Author Type: Physician Filed: 04/04/14 0829 Date of Service: 04/04/14701 Status: Signed Load Out Person: Silviano Cabrera MD (Physician) [facility] Service: Orthopedic Surgery Progress Note Hospital Day: LOS: 6 days Post-Op Day: 4 Days Post-Op SUBJECTIVE Patient Summary: Events Overnight: Less confused overnight. Sleeping this am Mobilizes ok in bed C/o neck and LBP pain No leg pain at this juncture Drain removed, incisions c/d/i Pulses strong LE's Scheduled Medications albuterol 2.5 mg Nebulization 4x daily aspirin 325 mg Oral Daily with breakfast cholecalciferol 2,000 Units Oral Daily cloNIDine 0.1 mg Oral BID docusate sodium 200 mg Oral BID ferrous sulfate (65 FE) 1 tablet Oral Daily furosemide 20 mg Oral Daily levothyroxine 75 mcg Oral Daily lisinopril 10 mg Oral Daily Magnesium 250 mg Oral Daily omeprazole 20 mg Oral BID piperacillin-tazobactam 3.375 g Intravenous Q8H predniSONE 5 mg Oral BID scopolamine 1 patch Transdermal Q72H senna 2 tablet Oral BID simvastatin 40 mg Oral Daily venlafaxine 75 mg Oral Daily Continuous Infusions sodium chloride 110 mL/hr at 04/03/14 2207 PRN Medications acetaminophen, acetaminophen, bisacodyl, calcium carbonate, diazepam, diphenhydrAMINE, diph enhydrAMINE, HYDROmorphone, magnesium hydroxide, naloxone, ondansetron, ondansetron, oxyCODO NE-acetaminophen, polyethylene glycol, promethazine OBJECTIVE Vital Signs: BP 174/70 | Pulse 72 | Temp(Src) 98.6 F (37 C) (Oral) | Resp 16 | Ht 1.575 m (5' 2.01") | Wt 77.2 kg (170 lb 3.1 oz) | BMI 31.12 kg/m2 | SpO2 99% Temp: [98.3 F (36.8 C)-98.6 F (37 C)] 98.6 F (37 C) (04/04 418) BP: (130-174)/(58-72) 174/70 mmHg (04/04 418) Heart Rate: [17-72] 72 (04/04 418) Resp: [16-20] 16 (04/04 418) SpO2: [95 %-99 %] 99 % (04/04 418) Weight: [77.2 kg (170 lb 3.1 oz)] 77.2 kg (170 lb 3.1 oz) (04/04 537) Physical Exam DATA CBC: Lab Results Component Value Date WBC 15.1* 04/01/2014 RBC 2.74* 04/01/2014 HGB 8.4* 04/01/2014 HCT 25.6* 04/01/2014 MCV 93.6 04/01/2014 MCH 30.5 04/01/2014 MCHC 32.6 04/01/2014 RDW 64.8* 04/01/2014 PLT 163 04/01/2014 MPV 7.9 04/01/2014 DIFFTYPE MANUAL 04/01/2014 WBC: Lab Results Component Value Date WBC 15.1* 04/01/2014 NEUTABSMAN 11.9* 04/01/2014 NEUTROABS 9.8* 03/30/2014 NEUTROMAN 79 04/01/2014 LYMPHOABS 0.9* 04/01/2014 LYMPHOMAN 6 04/01/2014 LYMPHSABS 1.2 03/30/2014 LYMPHOPCT 9.4 03/30/2014 MONOABSMAN 1.8* 04/01/2014 MONOMAN 12 04/01/2014 MONOPCT 10.7 03/30/2014 EOSABS 0.0 03/30/2014 EOSPCT 0.1 03/30/2014 BASOSABS 0.0 03/30/2014 BASOPCT 0.1 03/30/2014 BANDSPCT 2 04/01/2014 METAABS 0.2* 04/01/2014 METAPCT 1 04/01/2014 BMP: Lab Results Component Value Date NA 129* 04/01/2014 K 4.1 04/01/2014 CL 100 04/01/2014 CO2 22* 04/01/2014 ANIONGAP 11 04/01/2014 GLUF 117* 04/01/2014 BUN 17 04/01/2014 CREATININE 0.79 04/01/2014 BCR 22 04/01/2014 CA 8.1* 04/01/2014 EGFR >60 04/01/2014 PROBLEM LIST Active Problems: * No active hospital problems. * ASSESSMENT & PLAN Stable, some confusion off and on. Quite lucid this am after d/c of long acting narcotic. Afebrile IPR consult for disposition Drain out today Disposition: Surgical floor Code Status: Full Code SILVIANO CABRERA MD 04/04/2014 onversion Transa ction, Provider Unknown - 04/04/2014 2:35 AM PST Nurse Progress Note by Catia Andres RN at 04/04/14234 Author: Catia Andres RN Service: (none) Author Type: Registered Nurse Filed: 04/04/148 Date of Service: 04/04/14234 Status: Signed Load Out Person: Catia Andres RN (Registered Nurse) Patient talking to herself. When asked who she was talking to she responded, "those 2 girl s and masoud over there... Outside my window." When asked what they were doing she responded w ith, "I don't know... Ramón Holloway! What are you doing over there." Patient is able to tell t his RN who she is, where she is, what she is here for, and what year it is. Will continue t o monitor. Silviano Pearl Jr., MD - 04/03/2014 6:00 PM PSTFormatting of this note might be different from th e original. Progress Notes by Silviano Cabrera MD at 04/03/14 1800 Author: Silviano Cabrera MD Service: Orthopedic Surgery Author Type: Physician Filed: 04/04/14826 Date of Service: 04/03/141799 Status: Signed Load Out Person: Silviano Cabrera MD (Physician) [facility] Service: Orthopedic Surgery Progress Note Hospital Day: 5Post-Op Day: 3 Days Post-Op SUBJECTIVE Patient Summary: Events Overnight: None, stable, mobilizing. NVI Stable Calves soft, NT pulses strong Abdominal wound intact Drain with moderate output Scheduled Medications albuterol 2.5 mg Nebulization 4x daily aspirin 325 mg Oral Daily with breakfast cholecalciferol 2,000 Units Oral Daily cloNIDine 0.1 mg Oral BID docusate sodium 200 mg Oral BID ferrous sulfate (65 FE) 1 tablet Oral Daily furosemide 20 mg Oral Daily levothyroxine 75 mcg Oral Daily lisinopril 10 mg Oral Daily Magnesium 250 mg Oral Daily omeprazole 20 mg Oral BID piperacillin-tazobactam 3.375 g Intravenous Q8H predniSONE 5 mg Oral BID scopolamine 1 patch Transdermal Q72H senna 2 tablet Oral BID simvastatin 40 mg Oral Daily venlafaxine 75 mg Oral Daily Continuous Infusions sodium chloride 110 mL/hr at 04/03/14 2207 PRN Medications acetaminophen, acetaminophen, bisacodyl, calcium carbonate, diazepam, diphenhydrAMINE, diph enhydrAMINE, HYDROmorphone, magnesium hydroxide, naloxone, ondansetron, ondansetron, oxyCODO NE-acetaminophen, polyethylene glycol, promethazine OBJECTIVE Vital Signs: BP 174/70 | Pulse 72 | Temp(Src) 98.6 F (37 C) (Oral) | Resp 16 | Ht 1.575 m (5' 2.01") | Wt 77.2 kg (170 lb 3.1 oz) | BMI 31.12 kg/m2 | SpO2 99% Temp: [98.3 F (36.8 C)-98.6 F (37 C)] 98.5 F (36.9 C) (04/04 728) BP: (130-175)/(58-72) 175/72 mmHg (04/04 728) Heart Rate: [68-72] 71 (04/04 728) Resp: [16-20] 20 (04/04 728) SpO2: [95 %-99 %] 98 % (04/04 728) Weight: [77.2 kg (170 lb 3.1 oz)] 77.2 kg (170 lb 3.1 oz) (04/04 537) Physical Exam DATA CBC: Lab Results Component Value Date WBC 15.1* 04/01/2014 RBC 2.74* 04/01/2014 HGB 8.4* 04/01/2014 HCT 25.6* 04/01/2014 MCV 93.6 04/01/2014 MCH 30.5 04/01/2014 MCHC 32.6 04/01/2014 RDW 64.8* 04/01/2014 PLT 163 04/01/2014 MPV 7.9 04/01/2014 DIFFTYPE MANUAL 04/01/2014 WBC: Lab Results Component Value Date WBC 15.1* 04/01/2014 NEUTABSMAN 11.9* 04/01/2014 NEUTROABS 9.8* 03/30/2014 NEUTROMAN 79 04/01/2014 LYMPHOABS 0.9* 04/01/2014 LYMPHOMAN 6 04/01/2014 LYMPHSABS 1.2 03/30/2014 LYMPHOPCT 9.4 03/30/2014 MONOABSMAN 1.8* 04/01/2014 MONOMAN 12 04/01/2014 MONOPCT 10.7 03/30/2014 EOSABS 0.0 03/30/2014 EOSPCT 0.1 03/30/2014 BASOSABS 0.0 03/30/2014 BASOPCT 0.1 03/30/2014 BANDSPCT 2 04/01/2014 METAABS 0.2* 04/01/2014 METAPCT 1 04/01/2014 BMP: Lab Results Component Value Date NA 129* 04/01/2014 K 4.1 04/01/2014 CL 100 04/01/2014 CO2 22* 04/01/2014 ANIONGAP 11 04/01/2014 GLUF 117* 04/01/2014 BUN 17 04/01/2014 CREATININE 0.79 04/01/2014 BCR 22 04/01/2014 CA 8.1* 04/01/2014 EGFR >60 04/01/2014 PROBLEM LIST Active Problems: * No active hospital problems. * ASSESSMENT & PLAN Stable s/p L4-S1 anterior/posterior Drain monitoring Tweak meds Mobilize, assess progress for IPR/home/SNF in next 1-2 days Disposition: Surgical floor Code Status: Full Code SILVIANO CABRERA MD 04/04/2014 onversion Transa ction, Provider Unknown - 04/03/2014 5:47 PM PST Nurse Progress Note by May Alvarez RN at 04/03/14 063 Author: May Alvarez RN Service: (none) Author Type: Registered Nurse Filed: 04/03/14 351 Date of Service: 04/03/141746 Status: Signed Load Out Person: May Alvarez RN (Registered Nurse) Patient attempting to climb over rail to get out of bed. Patient states "I just want to loo k at the zebras outside." When asked what she sees outside, patient said she saw "horses karthikeyan ssed up like zebras. It's pretty cool!" Patient able to tell this RN who she is, where she i s at, for what reason, and what year it is. Patient assisted to the bathroom and back to bed . Bed alarm on. Will continue to monitor. onver robert Transaction, Provider Unknown - 04/03/2014 1:57 PM PST Therapy Progress Note by Denver Arias PTA at 04/03/14 4047 Author: Denver Arias PTA Service: (none) Author Type: Feller Buncher Operator Filed: 04/03/14 1401 Date of Service: 04/03/14 1357 Status: Signed Load Out Person: Denver Arias PTA (Feller Buncher Operator) 04/03/14 1357 PT Last Visit PT Received On 04/03/14 Reason for Treatment Spinal surgery Requires PT Follow Up Yes Assistance Required 1 person Precautions Spinal Precautions Lumbar;TLSO on when upright Other Comments Comments pt more awake and alert this PM willing to participate no new c/o Cognition Overall Cognitive Status WFL Orientation Level Oriented Bed Mobility Rolling Standby assist Sidelying to Sit Standby assist Sit to Sidelying Standby assist Scooting Standby assist Transfers Sit to/from Stand Standby assist Mobility Ambulation Assistance Standby assist Maximal Ambulation Distance (feet) 75 Total Ambulation Distance (feet) 75 Distance limited by? Patient's ability Pattern Alternating;Decreased baron Assistive Device Walker front wheeled Activity Tolerance Activity Tolerance Patient limited by fatigue Plan Treatment/Interventions Continue per Primary PT POC Progress Progressing toward goals Recommendation Recommendations Return to prior living situation onver robert Transaction, Provider Unknown - 04/03/2014 12:55 PM PST Progress Notes by Antonio Vides at 04/03/14 1255 Author: Antonio Vides Service: (none) Author Type: Flour Mixer Helper Filed: 04/03/14 1257 Date of Service: 04/03/14 1255 Status: Signed Load Out Person: Antonio Vides (Flour Mixer Helper) Stopped in for care, pt lying on bed was not willing to interact with the pt. Textile Worker will stop by another time. chaplain Jane fashion intern onver robert Transaction, Provider Unknown - 04/03/2014 11:38 AM PST Therapy Progress Note by BLAIR Chang at 04/03/14 1138 Author: BLAIR Chang Service: (none) Author Type: Occupational Therapist Filed: 04/03/14 1245 Date of Service: 04/03/14 1138 Status: Signed Load Out Person: BLAIR Chang (Occupational Therapist) 04/03/14 1138 OT Last Visit OT Received On 04/03/14 Reason for Treatment Spinal surgery Requires OT Follow Up Yes Assistance Required 1 person Apartment Coordinator Needed No Family/Caregiver Present No Precautions Spinal Precautions Lumbar;TLSO on when upright Other Precautions fall precautions; hallucinations Other Comments Comments Pt supine in bed upon OT arrival; lethargic and hallucinating that her dtr was in the room. Pt was aware that she was in the hospital but wasnt aware that she had her surgery already. Grooming Grooming Level of Assistance Minimum assistance;Moderate verbal cues Grooming Where Assessed Standing sinkside Grooming Comments assist for IV pole and walker placement decreased stability noted while s tanding. Toileting Toileting Level of Assistance Minimum assistance Where Assessed Toilet Toileting Comments verbal cues needed to maintain precuations during bhanu-care Toilet Transfers Toilet Transfer From Walker Toilet Transfer Type To and from Toilet Transfer to Standard toilet Toilet Transfer Technique Ambulating Toilet Transfers Minimal assistance Toilet Transfers Comments verbal and tactile cues to avoid bending. Additional Activities Additional Activities Comments Pt completed bed mobility with Mod A. After session pt was s upine in bed with call light/tray table in reach. Activity Tolerance Activity Tolerance Patient limited by fatigue;Patient tolerated treatment well Safety Devices Safety Devices in Place Yes Type of Devices Bed alarm;Call lite in place Education Completed: Education Topic: precautions during ADLs Completed with: Patient Completed by: Verbal Education Response to Education: Stated Understanding, Reinforcement Necessary for Education Under standing 04/03/14 1138 Plan Treatment Interventions (Per OT POC ) New Goal: Pt to participate in cog assessment and/or home safety questionnaire for safety w /ADLs Progress Slow progress, decreased activity tolerance;Slow progress, cognitive deficits OT Frequency QD;5x/wk Requires OT Follow Up Yes Recommendation Recommendation Short-term skilled OT; 24/ supervision if cognition does not improve. (SNF) Equipment Recommended Sponge long handled;Sock aid;Structural Worker onver robert Transaction, Provider Unknown - 04/03/2014 9:50 AM PST Therapy Progress Note by Denver Arias PTA at 04/03/14 0317 Author: Denver Arias PTA Service: (none) Author Type: Feller Buncher Operator Filed: 04/03/14 0953 Date of Service: 04/03/14 0950 Status: Signed Load Out Person: Denver Arias PTA (Feller Buncher Operator) 04/03/14 0950 PT Last Visit PT Received On 04/03/14 Reason for Treatment Spinal surgery Requires PT Follow Up On hold Other Comments Comments pt too lethargic to actively participate onver robert Transaction, Provider Unknown - 04/02/2014 10:05 PM PST Nurse Progress Note by Deborah Johnson RN at 04/02/142204 Author: Deborah Johnson RN Service: (none) Author Type: Registered Nurse Filed: 04/03/1444 Date of Service: 04/02/142204 Status: Signed Load Out Person: Deborah Johnson RN (Registered Nurse) Pt found sitting on the edge of her bed confused. Pt removed IV. Reoriented pt. Vitals stab le, dressings remain CDI, hemovac in place. Will continue to monitor. onver robert Transaction, Provider Unknown - 04/02/2014 2:19 PM PST Progress Notes by Winsome Lovett RN at 04/02/141418 Author: Winsome Lovett RN Service: (none) Author Type: Registered Nurse Filed: 04/02/14 1422 Date of Service: 04/02/14 141 Status: Signed Load Out Person: Winsome Lovett RN (Registered Nurse) Pt very lethargic today, falling asleep even during conversations. She is now stating that there are "bugs on the floor" and telling me that i have "a spider in my ear". Pt reoriented . She has been up to the chair x2 tolerating it well. Her drsg remains CDI with minimal drai nage in HV drain. CSM check remain WNL. Sheyla Morris, PT - 04/02/2014 1:20 PM PST Therapy Progress Note by Sheyla Brewster PT at 04/02/14 1320 Author: Sheyla Brewster PT Service: (none) Author Type: Physical Therapist Filed: 04/02/14 1340 Date of Service: 04/02/14 1320 Status: Signed Load Out Person: Sheyla Brewster PT (Physical Therapist) 04/02/14 1300 PT Last Visit PT Received On 04/02/14 Reason for Treatment Spinal surgery Requires PT Follow Up Yes Follow up PT Only? No Assistance Required 1 person Precautions Spinal Precautions Lumbar;TLSO on when upright Other Precautions fall precautions Other Comments Comments Pt is agreeable to PT, upon entering room, seated in bedside chair being assisted by nrsg with bed bath. Pt had walked to bathroom and back with nrsg, agreeable to more ambul ation Cognition Overall Cognitive Status WFL Orientation Level Oriented Transfers Sit to/from Stand Standby assist Mobility Ambulation Assistance Standby assist Maximal Ambulation Distance (feet) 80 Total Ambulation Distance (feet) 80 Distance limited by? Patient's ability Pattern Alternating;Decreased baron Assistive Device Walker front wheeled Modalities Other Therapy Ed re: frequent mobility and changes in position for improved pain control Activity Tolerance Activity Tolerance Patient limited by fatigue;Patient limited by pain Plan Treatment/Interventions Continue per Primary PT POC Progress Progressing toward goals Recommendation Recommendations Return to prior living situation Equipment Recommended Walker front wheeled Recommendation Comments Pt has S.O. available for assist as needed. Pt also with caregiver 25 hours/week Shelya Lopez PT 04/02/2014 onversion Transact ion, Provider Unknown - 04/02/2014 12:44 PM PSTFormatting of this note might be different fr om the original. Therapy Progress Note by BLAIR Chang at 04/02/14 1244 Author: BLAIR Chang Service: (none) Author Type: Occupational Therapist Filed: 04/02/14 1256 Date of Service: 04/02/14 1244 Status: Signed Load Out Person: BLAIR Chang (Occupational Therapist) 04/02/14 1244 OT Last Visit OT Received On 04/02/14 Reason for Treatment Spinal surgery Requires OT Follow Up Yes Assistance Required 1 person Apartment Coordinator Needed No Family/Caregiver Present No Precautions Spinal Precautions Lumbar;TLSO on when upright Other Precautions fall precautions Other Comments Comments Pt declining participation in ADLs. Able to recall 2/3 back precautions. Reviewed precautions and demonstrated use of sock aid for LB dressing. Willing to participate in UE e xercises from bed level. Therapeutic Exercise - ROM ROM Yes Other Exercise BUE 15 reps x 2 sets; Shoulder flex to 90 degrees; elbow flex/ext; forearm p ro/sup; wrist flex/ext; grasp/release. With focus to inc overall strength and endurance with daily tasks. Pt very fatigued with difficulty remaining awake. Education Completed: Education Topic: back precautions; UE AROM Completed with: Patient Completed by: Verbal Education, Demonstration Response to Education: Stated Understanding, Returned Demonstration, Reinforcement Sandhya velazquez for Education Understanding 04/02/14 1244 Plan Treatment Interventions (Per OT POC ) Progress Slow progress, decreased activity tolerance OT Frequency QD;5x/wk Requires OT Follow Up Yes Recommendation Recommendation Short-term skilled OT Equipment Recommended Sponge long handled;Sock aid;Structural Worker Sheyla Morris PT - 04/02/2014 9:05 AM PST Therapy Progress Note by Sheyla Brewster PT at 04/02/14 0905 Author: Sheyla Brewster PT Service: (none) Author Type: Physical Therapist Filed: 04/02/14 0947 Date of Service: 04/02/14904 Status: Signed Load Out Person: Sheyla Brewster PT (Physical Therapist) 04/02/14 0900 PT Last Visit PT Received On 04/02/14 Reason for Treatment Spinal surgery Requires PT Follow Up Yes Follow up PT Only? No Assistance Required 1 person Precautions Spinal Precautions Lumbar;TLSO on when upright Other Precautions fall risk Other Comments Comments Pt sitting up in chair upon entering room, agreeable to PT. Pt able to ambulate to doorway and back, but continues to be limited by pain. Pt requiring assist to jose and adju st TLSO Cognition Overall Cognitive Status WFL Orientation Level Oriented Transfers Sit to/from Stand Standby assist Mobility Ambulation Assistance Standby assist Maximal Ambulation Distance (feet) 40 Total Ambulation Distance (feet) 40 Distance limited by? Patient's ability Pattern Alternating;Decreased baron Assistive Device Walker front wheeled Modalities Modalities Other therapy Other Therapy Ed re: importance of progressive mobility Activity Tolerance Activity Tolerance Patient limited by pain;Patient limited by fatigue Plan Treatment/Interventions Continue per Primary PT POC Progress Progressing toward goals Recommendation Recommendations Return to prior living situation Equipment Recommended Walker front wheeled Recommendation Comments Pt has S.O. available for assist as needed. Pt also with caregiver 25 hours/week Sheyla Lopez PT 04/02/2014 Sheyla Cabello P T - 04/02/2014 8:22 AM PST Therapy Progress Note by Sheyla Brewster PT at 04/02/14821 Author: Sheyla Brewster PT Service: (none) Author Type: Physical Therapist Filed: 04/02/1453 Date of Service: 04/02/14821 Status: Signed Load Out Person: Sheyla Brewster PT (Physical Therapist) 04/02/14 0800 PT Last Visit PT Received On 04/02/14 Reason for Treatment Spinal surgery Requires PT Follow Up Refused;Yes Assistance Required 1 person Other Comments Comments Pt requesting that PT return once she has received morning medications. ZEV Schumacher notified re: pt's request for meds. PT to return later in A.M. Sheyla Lopez PT 04/02/2014 Silviano Miles Jr., MD - 04/02/2014 7:01 AM PST Progress Notes by Silviano Cabrera MD at 04/02/14 07 Author: Silviano Cabrera MD Service: Orthopedic Surgery Author Type: Physician Filed: 04/04/14825 Date of Service: 04/02/14700 Status: Signed Load Out Person: Silviano Cabrera MD (Physician) [facility] Service: Orthopedic Surgery Progress Note Hospital Day: Post-Op Day: 2 Days Post-Op SUBJECTIVE Patient Summary: Events Overnight: None, pt. With some confusion but ambulating, pt. Turning in bed re latively well. No c/o leg pain Chest with NL excursion VSS Grossly NVI Pulses LE's equal and strong Drain with moderate output Scheduled Medications albuterol 2.5 mg Nebulization 4x daily aspirin 325 mg Oral Daily with breakfast cholecalciferol 2,000 Units Oral Daily cloNIDine 0.1 mg Oral BID docusate sodium 200 mg Oral BID ferrous sulfate (65 FE) 1 tablet Oral Daily furosemide 20 mg Oral Daily levothyroxine 75 mcg Oral Daily lisinopril 10 mg Oral Daily Magnesium 250 mg Oral Daily omeprazole 20 mg Oral BID piperacillin-tazobactam 3.375 g Intravenous Q8H predniSONE 5 mg Oral BID scopolamine 1 patch Transdermal Q72H senna 2 tablet Oral BID simvastatin 40 mg Oral Daily venlafaxine 75 mg Oral Daily Continuous Infusions sodium chloride 110 mL/hr at 04/03/14 2207 PRN Medications acetaminophen, acetaminophen, bisacodyl, calcium carbonate, diazepam, diphenhydrAMINE, diph enhydrAMINE, HYDROmorphone, magnesium hydroxide, naloxone, ondansetron, ondansetron, oxyCODO NE-acetaminophen, polyethylene glycol, promethazine OBJECTIVE Vital Signs: BP 174/70 | Pulse 72 | Temp(Src) 98.6 F (37 C) (Oral) | Resp 16 | Ht 1.575 m (5' 2.01") | Wt 77.2 kg (170 lb 3.1 oz) | BMI 31.12 kg/m2 | SpO2 99% Physical Exam DATA PROBLEM LIST Active Problems: * No active hospital problems. * ASSESSMENT & PLAN Stable Mobilize, check IPR vs SNF vs home pending mobilization Disposition: Surgical floor Code Status: Full Code SILVIANO CABRERA MD 04/02/2014 onversion Transa ction, Provider Unknown - 04/01/2014 2:24 PM PDT Therapy Progress Note by Giovani Caceres PT at 04/01/14 1421 Author: Giovani Caceres PT Service: (none) Author Type: Physical Therapist Filed: 04/01/14 1423 Date of Service: 04/01/141423 Status: Signed Load Out Person: Giovani Caceres PT (Physical Therapist) 04/01/14 1357 PT Last Visit PT Received On 04/01/14 Reason for Treatment Spinal surgery Requires PT Follow Up Yes Assistance Required 1 person Precautions Spinal Precautions Lumbar;TLSO on when upright Other Precautions fall risk Other Comments Comments Pt feeling better this session. Vs stable throughout session. Cognition Overall Cognitive Status WFL Orientation Level Oriented Bed Mobility Rolling Standby assist Transfers Sit to/from Stand Standby assist Mobility Ambulation Assistance Standby assist Maximal Ambulation Distance (feet) 90 Total Ambulation Distance (feet) 90 Distance limited by? Patient's ability Pattern Alternating;Decreased baron Assistive Device Walker front wheeled Activity Tolerance Activity Tolerance Patient limited by fatigue Plan Treatment/Interventions Continue per Primary PT POC Progress Progressing toward goals Recommendation Recommendations Return to prior living situation Nikita Caceres PT artinez Sigala, Provider Unknown - 04/01/2014 10:53 AM PDT Therapy Progress Note by Giovani Caceres PT at 04/01/14 1053 Author: Giovani Caceres PT Service: (none) Author Type: Physical Therapist Filed: 04/01/14 1053 Date of Service: 04/01/14 1053 Status: Signed Load Out Person: Giovani Caceres PT (Physical Therapist) 04/01/14 1021 PT Last Visit PT Received On 04/01/14 Reason for Treatment Spinal surgery Requires PT Follow Up Yes Assistance Required 1 person Precautions Spinal Precautions Lumbar;TLSO on when upright Other Precautions fall risk Other Comments Comments Pt feeling ok after 2nd stage of surgery. Cognition Overall Cognitive Status WFL Orientation Level Oriented Bed Mobility Rolling Standby assist Transfers Sit to/from Stand Minimal assist (steadying/contact guard) Mobility Ambulation Assistance Standby assist Maximal Ambulation Distance (feet) 15 Total Ambulation Distance (feet) 15 Distance limited by? Patient's ability Pattern Alternating;Decreased baron Assistive Device Walker front wheeled Activity Tolerance Activity Tolerance Patient limited by fatigue Plan Treatment/Interventions Continue per Primary PT POC Progress Progressing toward goals Recommendation Recommendations Return to prior living situation Nikita Caceres PT Dawna Taylor ARNP - 04/01/2014 9:14 AM PDTFormatting of this note might be different from the mabel ginal. Progress Notes by RITA Rubio at 04/01/14913 Author: RITA Rubio Service: Orthopedic Surgery Author Type: Advanced Registered Charanjit simons Practitioner Filed: 04/01/14916 Date of Service: 04/01/14913 Status: Signed Load Out Person: RITA Rubio (Advanced Registered Nurse Practitioner) [facility] Service: Orthopedic Surgery Progress Note Hospital Day: LOS: 3 days Post-Op Day: 1 Day Post-Op SUBJECTIVE Patient Summary: Leg pain better. Lots of acid reflux. +productive cough. Scheduled Medications albuterol 2.5 mg Nebulization 3 times daily aspirin 325 mg Oral Daily with breakfast cholecalciferol 2,000 Units Oral Daily cloNIDine 0.1 mg Oral BID docusate sodium 200 mg Oral BID ferrous sulfate (65 FE) 1 tablet Oral Daily folic acid 1 mg Oral Daily levothyroxine 75 mcg Oral Daily lisinopril 10 mg Oral Daily Magnesium 250 mg Oral Daily morphine 30 mg Oral Q12H LAKISHA omeprazole 20 mg Oral BID piperacillin-tazobactam 3.375 g Intravenous Q8H predniSONE 5 mg Oral BID scopolamine 1 patch Transdermal Q72H senna 2 tablet Oral BID simvastatin 40 mg Oral Daily venlafaxine 75 mg Oral Daily Continuous Infusions sodium chloride 110 mL/hr at 04/01/14 05 PRN Medications acetaminophen, acetaminophen, bisacodyl, calcium carbonate, diazepam, diphenhydrAMINE, diph enhydrAMINE, HYDROmorphone, HYDROmorphone, magnesium hydroxide, naloxone, ondansetron, ondan setron, polyethylene glycol, promethazine OBJECTIVE Vital Signs: BP 138/68 | Pulse 83 | Temp(Src) 100 F (37.8 C) (Oral) | Resp 16 | Ht 1.575 m (5' 2.01" ) | Wt 70 kg (154 lb 5.2 oz) | BMI 28.22 kg/m2 | SpO2 96% Temp: [97 F (36.1 C)-100.1 F (37.8 C)] 100 F (37.8 C) (04/01 750) BP: (116-164)/(42-79) 138/68 mmHg (04/01 750) Heart Rate: [76-94] 83 (04/01 750) Resp: [10-26] 16 (04/01 750) SpO2: [92 %-100 %] 96 % (04/01 075) FiO2 : [84 %-97 %] 95 % (03/31 1410) Chest: scattered wheezing throughout lung arguello. 96% sat today. Drain >100cc superficial drain SLR negative bilaterally. No focal neurologic deficit bilateral LE. PROBLEM LIST Active Problems: * No active hospital problems. * ASSESSMENT & PLAN 1. Respiratory therapy c/s today. 2. Check CBC and BMP today 3. Continue with abx treatment. 4. Will need several respiratory treatment so patient can adequately participate with PT. Disposition: inpatient Code Status: Full Code RITA MONROE 04/01/2014 onversion Transaction , Provider Unknown - 03/31/2014 1:59 PM PDT Progress Notes by Kari Mckeon RPH at 03/31/14 0447 Author: Kari Mckeon RPH Service: (none) Author Type: Pharmacist Filed: 03/31/14 1350 Date of Service: 03/31/141358 Status: Signed Load Out Person: Kari Mckeon RPH (Pharmacist) >> KARI MCKEON 03/31/2014 13:59 Zosyn Extended Infusion Initial Consult Thea Carmona 68 y.o. female Estimated Creatinine Clearance: 56 mL/min (by C-G formula based on Cr of 0.87). NEUTROPHILS ABS Date Value Range Status 03/30/2014 9.8* 1.9 - 7.4 K/uL Final Testing performed at [facility], [address] [place] [id number] CREATININE Date Value Range Status 03/30/2014 0.87 0.50 - 1.00 mg/dL Final Testing performed at [facility], [address] [place] [id number] Zosyn extended Infusion loading and maintenance dose guidelines Loading Dose 4.5 g IV Over 30 minutes CrCl >20 ml/min 3.375 g IV Q 8 hours Over 4 hours CrCl 10-20 ml/min 3.375 g IV Q 12 hours Over 4 hours CrCl <10, HD, PD Follow [facility] Dosage Adjustments in Renal Dysfunction Protocol Plan per pharmacy protocol: Zosyn 4.5 g IVPB Loading dose over 30 minutes followed by Zosyn 3.375 g IVPB extended infusion over 4 hours Q 8 hours Pharmacy will continue monitoring patient for appropriate dosing per renal function. 03/31/2014 1:58 PM Pharmacist: KARI MCKEON onver robert Transaction, Provider Unknown - 03/31/2014 10:43 AM PDT Therapy Progress Note by Denver Arias PTA at 03/31/14 1043 Author: Denver Arias PTA Service: (none) Author Type: Feller Buncher Operator Filed: 03/31/14 1044 Date of Service: 03/31/14 104 Status: Signed Load Out Person: Denver Arias PTA (Feller Buncher Operator) 03/31/14 1043 PT Last Visit PT Received On 03/31/14 Reason for Treatment Spinal surgery Requires PT Follow Up On hold Other Comments Comments pt reporting having a very difficult night and is scheduled for stage 2 of surgery will need to be reassessed post surgery onver robert Transaction, Provider Unknown - 03/30/2014 2:44 PM PDT Therapy Progress Note by Denver Arias PTA at 03/30/14 1444 Author: Denver Arias PTA Service: (none) Author Type: Feller Buncher Operator Filed: 03/30/14 1446 Date of Service: 03/30/141443 Status: Signed Load Out Person: Denver Arias PTA (Feller Buncher Operator) 03/30/14 1444 PT Last Visit PT Received On 03/30/14 Reason for Treatment Spinal surgery Requires PT Follow Up Yes Assistance Required 1 person Precautions Spinal Precautions Lumbar;TLSO on when upright Other Comments Comments pt mobilzing well no new c/o Cognition Overall Cognitive Status WFL Orientation Level Oriented Bed Mobility Rolling Supervison Sidelying to Sit Supervision Sit to Sidelying Supervision Scooting Supervision Transfers Sit to/from Stand Standby assist Mobility Ambulation Assistance Standby assist Maximal Ambulation Distance (feet) 180 Total Ambulation Distance (feet) 180 Distance limited by? Patient's ability Pattern Alternating;Decreased baron Assistive Device Walker front wheeled Activity Tolerance Activity Tolerance Patient limited by fatigue Plan Treatment/Interventions Continue per Primary PT POC Progress Progressing toward goals Recommendation Recommendations Return to prior living situation onver robert Transaction, Provider Unknown - 03/30/2014 11:16 AM PDT Therapy Progress Note by Denver Arias PTA at 03/30/14 1116 Author: Denver Arias PTA Service: (none) Author Type: Feller Buncher Operator Filed: 03/30/148 Date of Service: 03/30/141115 Status: Signed Load Out Person: Denver Arias PTA (Feller Buncher Operator) 03/30/141115 PT Last Visit PT Received On 03/30/14 Reason for Treatment Spinal surgery Requires PT Follow Up Yes Assistance Required 1 person Precautions Spinal Precautions Lumbar;TLSO on when upright Other Comments Comments pt motivated to participate no new c/o Cognition Overall Cognitive Status WFL Orientation Level Oriented Bed Mobility Rolling Supervison Sidelying to Sit Standby assist Sit to Sidelying Supervision Scooting Supervision Transfers Sit to/from Stand Minimal assist (steadying/contact guard) Mobility Ambulation Assistance Standby assist Maximal Ambulation Distance (feet) 65 Total Ambulation Distance (feet) 65 Distance limited by? Patient's ability Pattern Alternating;Decreased baron Assistive Device Walker front wheeled Activity Tolerance Activity Tolerance Patient limited by fatigue;Patient limited by shortness of breath (SOB) Plan Treatment/Interventions Continue per Primary PT POC Progress Progressing toward goals Recommendation Recommendations Return to prior living situation onver robert Transaction, Provider Unknown - 03/30/2014 9:52 AM PDT Case Management by CLAIRE Lee at 03/30/1452 Author: CLAIRE Lee Service: (none) Author Type: Newspaper Editor Managing Filed: 03/30/14 0953 Date of Service: 03/30/14951 Status: Signed Load Out Person: CLAIRE Lee (Newspaper Editor Managing) CM met with pt for discharge planning. Pt is 68 years old and lives with her significant ot her in a 1-level home. Pt has 5 stairs at the main entrance. Pt has a tub-shower. Pt owns a shower chair, raised toilet seat and a walker. Pt's significant other will assist with her d aily living activities including personal hygiene, grooming, dressing, feeding, cooking, tra nsportation and ambulation. Pt had no resource concerns at this time. CM will continue to fo llow as needed. Discharge Plan: Home. Colin Abraham [facility] 03/30/14 0951 Discharge Planning Evaluation Admitting Diagnosis Lumbar Fusion Readmission No Living Arrangements Spouse/significant other Support Systems Spouse/significant other Type of Residence Private residence House type House-1 story Steps to enter 5 Bathrooms on 1st Floor 1-Full Caregiver after Discharge Yes Relationship to Patient spouse Mental Status Oriented Anticipated Discharge Plan Post Acute Care Needs None at this time Resources Financial concerns No Transportation issues No Patient/Family concerns No Prescription Plan Yes Anticipated Disposition Facility Type Home Met with: Patient and discussed discharge planning, Pt is a 68 y.o., female Patient's PCP is: RAVINDRA GILBERT Patient's insurance: [employer] Coverage concerns: None Medication coverage/concerns: None Community resources utilized / needed: None Assistance in transportation: Not needed. Identification of any specific education / training: None Barriers to Discharge / Alternative housing needed: None Anticipated DCP: Home Dawna Taylor ARNP - 03/30/2014 7:56 AM PDTFormatting of this note might be different from the mabel griggs. Progress Notes by RITA Rubio at 03/30/14 0756 Author: RITA Rubio Service: Orthopedic Surgery Author Type: Advanced Registered N kristyn Practitioner Filed: 03/30/14 0757 Date of Service: 03/30/14755 Status: Signed Load Out Person: RITA Rubio (Advanced Registered Nurse Practitioner) [facility] Service: Orthopedic Surgery Progress Note Hospital Day: LOS: 1 day Post-Op Day: 1 Day Post-Op SUBJECTIVE Patient Summary: Overall doing ok. No flatulence yet. Leg pain better post-op. Has no t ambulated much at all yet. Scheduled Medications albuterol 2.5 mg Nebulization 3 times daily aspirin 325 mg Oral Daily with breakfast cholecalciferol 2,000 Units Oral Daily cloNIDine 0.1 mg Oral BID docusate sodium 200 mg Oral BID ferrous sulfate (65 FE) 1 tablet Oral Daily folic acid 1 mg Oral Daily levothyroxine 75 mcg Oral Daily lisinopril 10 mg Oral Daily Magnesium 250 mg Oral Daily morphine 30 mg Oral Q12H LAKISHA omeprazole 20 mg Oral BID predniSONE 5 mg Oral BID senna 2 tablet Oral BID simvastatin 40 mg Oral Daily venlafaxine 75 mg Oral Daily Continuous Infusions sodium chloride 110 mL/hr at 03/30/14 0123 PRN Medications acetaminophen, acetaminophen, bisacodyl, calcium carbonate, diazepam, diphenhydrAMINE, diph enhydrAMINE, HYDROmorphone, HYDROmorphone, magnesium hydroxide, naloxone, ondansetron, ondan setron, polyethylene glycol OBJECTIVE Vital Signs: BP 126/63 | Pulse 78 | Temp(Src) 98.9 F (37.2 C) (Oral) | Resp 18 | Ht 1.575 m (5' 2.01 ") | Wt 70 kg (154 lb 5.2 oz) | BMI 28.22 kg/m2 | SpO2 95% Temp: [97.8 F (36.6 C)-98.9 F (37.2 C)] 98.9 F (37.2 C) (03/30 343) BP: (104-149)/(56-79) 126/63 mmHg (03/30 343) Heart Rate: [68-82] 78 (03/30 748) Resp: [5-18] 18 (03/30 748) SpO2: [93 %-100 %] 95 % (03/30 748) FiO2 : [45 %-90 %] 90 % (03/29 112) Incision c/d/i. Good HF/Q/EHL/DF and PF while on sitting position. DATA CBC: Lab Results Component Value Date WBC 12.3* 03/30/2014 RBC 3.29* 03/30/2014 HGB 9.9* 03/30/2014 HCT 30.8* 03/30/2014 MCV 93.5 03/30/2014 MCH 30.0 03/30/2014 MCHC 32.1 03/30/2014 RDW 65.6* 03/30/2014 PLT 177 03/30/2014 MPV 8.0 03/30/2014 DIFFTYPE AUTOMATED 03/30/2014 BMP: Lab Results Component Value Date NA 134* 03/30/2014 K 4.6 03/30/2014 CL 103 03/30/2014 CO2 28 03/30/2014 ANIONGAP 8 03/30/2014 GLUF 106* 03/30/2014 BUN 21 03/30/2014 CREATININE 0.87 03/30/2014 BCR 24 03/30/2014 CA 8.5 03/30/2014 EGFR >60 03/30/2014 PROBLEM LIST Active Problems: * No active hospital problems. * ASSESSMENT & PLAN NPO after midnight for stage [address] lumbar scan today. Continue present treatment. Disposition: inpatient Code Status: Full Code RITA MONROE 03/30/2014 onversion Transaction , Provider Unknown - 03/30/2014 7:07 AM PDT Therapy Progress Note by BLAIR Raymundo at 03/30/14706 Author: BLAIR Raymundo Service: (none) Author Type: Occupational Therapist Filed: 03/30/14 1009 Date of Service: 03/30/14706 Status: Signed Load Out Person: BLAIR Raymundo (Occupational Therapist) 03/30/14706 Precautions Spinal Precautions Lumbar;TLSO on when upright (fusion L4-5) Other Precautions fall risk Home Environment Bathroom Equipment Grab bars in shower/bath;Hand-held shower head;Tub transfer bench;Shower chair;Raised toilet seat Additional Comments Refer to PT note for PLOF Prior Function Level of [place] Modified independent with functional mobility;Assist with ADLs;Assist with IADLs Lives With Significant other Receives Help From Friend(s) ADL Assistance Needs assistance Bath Moderate assist (also stepping over tub) Dressing Moderate assist Grooming Independent Feeding Independent Home ADL's (hired 2 girls to assist with IADLs) Employment Retired for disability Comments pt.'s friends drive pt. to appt.'s, shopping, etc. ADL Where Eating Assessed Chair/Table;Sitting Eating Assistance Independent Grooming Assistance Supervision (seated in chair after s/u) Grooming impacted by Endurance;Safety concerns;Precautions Additional Comments Provided pt. with back precaution handout: educ. pt. on no BLTs (bendin g/lifting/twisting). Pt. educ in AE recommendations, donning/doffing clothing, ECTs during A DLs. Pt. would benefit from further skilled OT services to cont. education and practice duri ng ADLs and initiate UE HEP. Pt. left seated in chair, eating breakfast, call light within r each. Vision-Basic Assessment Current Vision Reading glasses Cognition Overall Cognitive Status WFL Orientation Level Oriented Sensation Light Touch No apparent deficits RUE Assessment RUE Assessment WFL LUE Assessment LUE Assessment WFL Hand Function Gross Grasp Functional Functional Gross Grasp Able to grasp objects without difficulty Coordination Functional (pt. is right handed) Assessment Assessment Decreased ADL status;Decreased endurance;Decreased fine motor control;Decreased self-care trans;Decreased high-level ADLs Prognosis Good Goal Formulation Patient;Family ADL Goals Pt Will Perform Grooming Standing at sink;With supervision;Maintaining back precautions Pt Will Perform LE Dressing At edge of bed;In chair;Supervision;With adaptive equipment;Delores ntaining back precautions LE Dressing Adaptive Equipment Structural Worker;Shoehorn long-handled;Sock aid Arm Goals Pt Will Perform AROM B UE;1 set;10 reps;With good activity tolerance 03/30/14 0707 ADL Goals Pt Will Perform Grooming Standing at sink;With supervision;Maintaining back precautions Pt Will Perform LE Dressing At edge of bed;In chair;Supervision;With adaptive equipment;Delores ntaining back precautions LE Dressing Adaptive Equipment Structural Worker;Shoehorn long-handled;Sock aid Arm Goals Pt Will Perform AROM B UE;1 set;10 reps;With good activity tolerance Plan Treatment Interventions ADL retraining;Functional transfer training;Functional dynamic acti vities;AROM;Therapeutic exercises;Endurance training;Patient/Family training;Equipment eval/ education;Compensatory technique education OT Frequency BID;QD;5x/wk Requires OT Follow Up Yes Recommendation Recommendation Short-term skilled OT (return home w/support) Equipment Recommended Sponge long handled Education Completed: Education Topic: OT role, AE recommendations, reinforce precautions and technique for AD Ls Completed with: Patient Completed by: Written Material, Verbal Education, Demonstration Response to Education: Stated Understanding, Returned Demonstration, Reinforcement Sandhya velazquez for Education Understanding Occupational Therapy Plan: Continue OT treatment per POC-Q/BID/5x/wk The following recommendations are made for d/c planning at this time: Cont. Acute skilled OT services Return to home w/ family support Barriers to d/c at this time include: Equipment needs shower brush Physical deficits impacting functional independence Self-care deficits impacting functional independence ROSALIND Raymundo, CSRS 03/30/2014 onver robert Transaction, Provider Unknown - 03/29/2014 2:41 PM PDT Progress Notes by Hugo Dsouza RPH at 03/29/14 1441 Author: Hugo Dsouza RPH Service: (none) Author Type: Pharmacist Filed: 03/29/14 1441 Date of Service: 03/29/141440 Status: Signed Load Out Person: Hugo Dsouza RPH (Pharmacist) Pharmacy will renal dose as needed once labs are available. onver robert Transaction, Provider Unknown - 03/29/2014 2:20 PM PDT Therapy Progress Note by Randee Cgae PT at 03/29/14 1420 Author: Randee Cage PT Service: (none) Author Type: Physical Therapist Filed: 03/29/14 1553 Date of Service: 03/29/14 1420 Status: Signed Load Out Person: Randee Cage PT (Physical Therapist) 03/29/14 1420 PT Last Visit PT Received On 03/29/14 Reason for Treatment Spinal surgery Requires PT Follow Up Awaiting tx order Follow up PT Only? No PT Eval/Reassessment Date 03/29/14 Assistance Required 1 person Precautions Spinal Precautions Lumbar;TLSO on when upright Other Precautions fall precautions Plan Treatment/Interventions Balance training;Bed mobility training;Gait training;Monitor O2 sat s;Monitor vital signs;Review precautions;Stair training;Therapeutic exercise;Transfer traini ng PT Frequency 5-7x/wk;Once per day;Twice a day (BID as able) Care Duration (# of days) 7 # of days Home Environment Type of Home Home one story Home Exterior Layout 4-6 steps;Rail on L ascending (5ste) Home Interior Layout Lives on main level with bedroom/bathroom Bathroom Shower/Tub Tub/shower unit Bathroom Toilet Standard Bathroom Equipment Raised toilet seat;Grab bars in shower/bath;Shower stool;Hand-held showe r head Bathroom Accessibility Accessible via walker Home Equipment Walker 4 wheeled;Cane single point;Structural Worker;Chair lift;Bed hospital Additional Comments Lives with s.o., who is home and able to assist prn. Also has caregive r approx 25hrs/wk. Assist for ADL's incl dressing and bathing. Assist for bed mobility oth erwise Tra transfers/gait with SPC or walker. Able to ambulate community distances occasio ewelina. Does not drive. Reports 1x fall over last 6mos d/t pulled over by dog on leash. Recommendation Recommendations Outpatient PT (likely return home w/s.o. pending stairs, outpt PT prn) Prior Function Level of [place] Assist with ADLs;Assist with functional mobility;Modified independent with functional mobility Lives With Significant other Receives Help From Friend(s) Employment Retired for disability RLE Assessment RLE Assessment (functional weakness) LLE Assessment LLE Assessment (functional weakness, weaker than R) Cognition Overall Cognitive Status WFL Orientation Level Oriented Sensation Light Touch No apparent deficits Perception Inattention/Neglect Appears intact Initiation Appears intact Vision-Basic Assessment Current Vision Reading glasses Assessment of Patient Status Assessment of Patient Status Decreased functional mobility;Decreased endurance Prognosis Should progress with skilled therapy intervention Safety Devices Safety Devices in Place (call light in reach, s.o. in room) Pre/peak/post Position BP Pulse rate O2 sats L/min sitting 126/65 95 ra End amb 133/69 96 ra onver robert Transaction, Provider Unknown - 03/29/2014 12:38 PM PDT Nurse Progress Note by Kari Mccarty RN at 03/29/14 [id number] Author: Kari Mccarty RN Service: Anesthesiology Author Type: Registered Nurse Filed: 03/29/14 8673 Date of Service: 03/29/147 Status: Signed Load Out Person: Kari Mccarty RN (Registered Nurse) Pt difficult pain control due to chronic narcotic use. Talked with DR Cabrera restarted her ox ycontin. Skinny kimball in this encounter Plan of Treatment +--------+ [...] | | | | | [place] [address] | | | | | | [phone] | | | | | | | | +--------+ + + + + | 06/08/ | Office | Physical Medicine | Rocky Santos, | | | 2019 | Visit | and Rehabilitation | MD Varela [address] | | | | | | [place] | | | | | | [id number] | | | | | | | | +--------+ + + + + | 06/16/ | Appointment | Pulmonology | Eveline Jaffe | | | 2019 | | | MD Nichole Carter [address] | | | | | | [address] | | | | | | [place] [address] | | | | | | [phone] | | | | | | | | +--------+ + + + + | 06/16/ | Office | Pulmonology | Eveline Jaffe | | | 2019 | Visit | | MD Nichole Carter | | | | | | [address] | | | | | | [place] [address] | | | | | | [phone] | | | | | | | | +--------+ + + + + | 08/24/ | Office | Cardiology | Anisha Lopez DO | | | 2019 | Visit | | [address] | | | | | | [place] | | | | | | [address] | | | | | | | | +--------+ + + + + documented as of this encounter Procedures + +--------+ + + + | Procedure Name | Priori | Date/Time | Associated Diagnosis | Comments | | | ty | | | | + +--------+ + + + | XR LUMBAR SPINE 2 OR | Routin | 04/07/2014 | | Results for this | | 3 VW | e | 3:23 PM | | procedure are in the | | | | PST | | results section. | + +--------+ + + + | EXTERNAL LAB: CBC | Routin | 04/01/2014 | | Results for this | | | e | 9:46 AM | | procedure are in the | | | | PDT | | results section. | + +--------+ + + + | BASIC METABOLIC | Routin | 04/01/2014 | | Results for this | | PANEL | e | 9:46 AM | | procedure are in the | | | | PDT | | results section. | + +--------+ + + + | FL C ARM > 1 HOUR | Routin | 03/31/2014 | | Results for this | | | e | 1:55 PM | | procedure are in the | | | | PDT | | results section. | + +--------+ + + + | CT LUMBAR SPINE WO | Routin | 03/30/2014 | | Results for this | | CONTRAST | e | 8:11 AM | | procedure are in the | | | | PDT | | results section. | + +--------+ + + + | EXTERNAL LAB: CBC | Routin | 03/30/2014 | | Results for this | | | e | 5:46 AM | | procedure are in the | | | | PDT | | results section. | + +--------+ + + + | BASIC METABOLIC | Routin | 03/30/2014 | | Results for this | | PANEL | e | 5:46 AM | | procedure are in the | | | | PDT | | results section. | + +--------+ + + + | FL C ARM > 1 HOUR | Routin | 03/29/2014 | | Results for this | | | e | 11:17 AM | | procedure are in the | | | | PDT | | results section. | + +--------+ + + + | FL C ARM > 1 HOUR | Routin | 03/29/2014 | | Results for this | | | e | 10:56 AM | | procedure are in the | | | | PDT | | results section. | + +--------+ + + + | TYPE AND SCREEN | Routin | 03/29/2014 | | Results for this | | | e | 7:04 AM | | procedure are in the | | | | PDT | | results section. | + +--------+ + + + documented in this encounter Results XR Lumbar Spine 2 or 3 Vw (04/07/2014 3:23 PM PST) + + | Specimen | + + | | + + + + + | Impressions | Performed At | + + + | 1. Post surgical changes with lumbar fusion from L4-S1. No | | | complication is noted. 2. Grade 1 anterior listhesis of L4 on L5 | | | and L5 on S1 is slightly improved in appearance. Electronically | | | signed by Devin Collins MD on 04/07/2014 4:33 PM | | + + + + + + | Narrative | Performed At | + + + | [facility] 1945 XR LUMBAR SPINE LIMITED 2-3 VIEW | | | 04/07/2014 3:23 PM INDICATION: Low back pain COMPARISON: CT, | | | 03/30/14 TECHNIQUE: Lumbar spine series, 2 views FINDINGS: | | | Postsurgical changes are demonstrated with transpedicular fixation of | | | the lumbar spine from L4-S1. There is approximately 3.9 mm anterior | | | listhesis of L4 on L5. There is approximately 4.2 mm anterior | | | listhesis of L5 on S1. This is unchanged in appearance from the | | | prior study. Vertebral body heights are maintained and there appears | | | to be moderate osteopenia. Moderate calcification of the abdominal | | | aorta is present. Cholecystectomy clips are noted. A nonspecific bowel | | | gas pattern is present. | | + + + + + | Procedure Note | + + | Fabián, Rad Conversion - 01/14/2019 11:10 AM PDT [facility]1945XR LUMBAR | | SPINE LIMITED 2-3 VIEW04/07/2014 3:23 PM INDICATION: Low back pain COMPARISON: CT, | | 03/30/14 TECHNIQUE: Lumbar spine series, 2 views FINDINGS: Postsurgical changes are | | demonstrated with transpedicular fixation of the lumbar spine from L4-S1. There is | | approximately 3.9 mm anterior listhesis of L4 on L5. There is approximately 4.2 mm | | anterior listhesis of L5 on S1. This is unchanged in appearance from the prior study. | | Vertebral body heights are maintained and there appears to be moderate osteopenia. | | Moderate calcification of the abdominal aorta is present. Cholecystectomy clips are | | noted. A nonspecific bowel gas pattern is present. IMPRESSION: 1. Post surgical changes | | with lumbar fusion from L4-S1. No complication is noted.2. Grade 1 anterior listhesis | | of L4 on L5 and L5 on S1 is slightly improved in appearance. | |listhesis of L5 on S1. This is unchanged in | |appearance from the prior study. Vertebral body heights are maintained and there appears to be moderate osteopenia. Moderate calcification of the abdominal aorta is present. Cholecyst ectomy clips are noted. A nonspecific bowel gas pattern is present. | | | |IMPRESSION: | |1. Post surgical changes with lumbar fusion from L4-S1. No complication is noted. | |2. Grade 1 anterior listhesis of L4 on L5 and L5 on S1 is slightly improved in appearance. | | | | | + + External Lab: CBC (04/01/2014 9:46 AM PDT) + + + + + + | Component | Value | Ref Range | Performed | Pathologist | | | | | At | Signature | + + + + + + | WBC | 15.1 (H)Comment: Testing | 3.8 - 11.0 K/uL | EXTERNAL | | | | performed at [facility], [address] | | LAB | | | | [address], | | | | | | [place] [address] | | | | + + + + + + | RED CELL | 2.74 (L)Comment: Testing | 3.70 - 5.10 | EXTERNAL | | | COUNT | performed at [facility], [address] | M/uL | LAB | | | | [address], | | | | | | [place] [address] | | | | + + + + + + | Hgb | 8.4 (L)Comment: Testing | 11.3 - 15.5 | EXTERNAL | | | | performed at [facility], [address] | g/dL | LAB | | | | [address], | | | | | | [place] [address] | | | | + + + + + + | Hematocrit, | 25.6 (L)Comment: Testing | 34.0 - 46.0 % | EXTERNAL | | | POC | performed at [facility], [address] | | LAB | | | | [address], | | | | | | [place] [address] | | | | + + + + + + | MCV | 93.6Comment: Testing | 80.0 - 100.0 fl | EXTERNAL | | | | performed at [facility], [address] | | LAB | | | | [address], | | | | | | [place], [place] [address] | | | | + + + + + + | MCH | 30.5Comment: Testing | 27.0 - 34.0 pg | EXTERNAL | | | | performed at [facility], [address] | | LAB | | | | [address], | | | | | | [place], [place] [address] | | | | + + + + + + | MCHC | 32.6Comment: Testing | 32.0 - 35.5 | EXTERNAL | | | | performed at [facility], [address] | g/dL | LAB | | | | [address], | | | | | | [place] [address] | | | | + + + + + + | RDW-CV | 64.8 (H)Comment: Testing | 37 - 53 fl | EXTERNAL | | | | performed at [facility], [address] | | LAB | | | | [address], | | | | | | [place] [address] | | | | + + + + + + | Platelet | 163Comment: Testing | 150 - 400 K/uL | EXTERNAL | | | Count | performed at [facility], [address] | | LAB | | | Plasma | [address], | | | | | | [place] [address] | | | | + + + + + + | MPV | 7.9Comment: Testing | fl | EXTERNAL | | | | performed at [facility], [address] | | LAB | | | | [address], | | | | | | [place] [address] | | | | + + + + + + | Differentia | MANUALComment: Testing | | EXTERNAL | | | l Type | performed at [facility], [address] | | LAB | | | | [address], | | | | | | [place] [address] | | | | + + + + + + | Segmented | 79Comment: Testing | % | EXTERNAL | | | Neutrophils | performed at [facility], [address] | | LAB | | | Manual | [address], | | | | | | [place] [address] | | | | + + + + + + | % Bands | 2Comment: Testing | % | EXTERNAL | | | | performed at [facility], [address] | | LAB | | | | [address], | | | | | | [place] [address] | | | | + + + + + + | % | 1Comment: Testing | % | EXTERNAL | | | Metamyelocy | performed at [facility], [address] | | LAB | | | margarita | [address], | | | | | | [place] [address] | | | | + + + + + + | Lymphocytes | 6Comment: Testing | % | EXTERNAL | | | Manual | performed at [facility], [address] | | LAB | | | | [address], | | | | | | [place] [address] | | | | + + + + + + | Monocytes | 12Comment: Testing | % | EXTERNAL | | | Manual | performed at [facility], [address] | | LAB | | | | [address], | | | | | | [place] [address] | | | | + + + + + + | Absolute | 11.9 (H)Comment: Testing | 1.9 - 7.4 K/uL | EXTERNAL | | | Neutrophils | performed at [facility], [address] | | LAB | | | | [address], | | | | | | [place] [address] | | | | + + + + + + | Bands | 0.3 (H)Comment: Testing | 0 - 0.2 K/uL | EXTERNAL | | | Manual | performed at [facility], [address] | | LAB | | | | [address], | | | | | | [place] [address] | | | | + + + + + + | Absolute | 0.2 (H)Comment: Testing | K/uL | EXTERNAL | | | Metamyelocy | performed at [facility], [address] | | LAB | | | [address] | [address], | | | | | | [place] [address] | | | | + + + + + + | Absolute | 0.9 (L)Comment: Testing | 1.0 - 3.9 K/uL | EXTERNAL | | | Lymphocytes | performed at [facility], [address] | | LAB | | | | [address], | | | | | | [place] [address] | | | | + + + + + + | Absolute | 1.8 (H)Comment: Testing | 0 - 0.8 K/uL | EXTERNAL | | | Monocytes | performed at [facility], [address] | | LAB | | | | [address], | | | | | | [place] [address] | | | | + + + + + + | RBC | 2+Comment: ANISONORMAL | | EXTERNAL | | | Morphology | PLT MORPHTesting | | LAB | | | | performed at [facility], [address] | | | | | | [address], | | | | | | [place] [address] | | | | | | | [...] + +---------+ + + Basic Metabolic Panel (04/01/2014 9:46 AM PDT) + + + + + + | Component | Value | Ref Range | Performed | Pathologist | | | | | At | Signature | + + + + + + | Na | 129 (L)Comment: Testing | 135 - 143 | EXTERNAL | | | | performed at [facility], [address] | mmol/L | LAB | | | | [address], | | | | | | [place] [address] | | | | + + + + + + | K | 4.1Comment: Testing | 3.5 - 4.9 | EXTERNAL | | | | performed at [facility], [address] | mmol/L | LAB | | | | [address], | | | | | | [place] [address] | | | | + + + + + + | Cl | 100Comment: Testing | 99 - 109 mmol/L | EXTERNAL | | | | performed at [facility], [address] | | LAB | | | | [address], | | | | | | [place] [address] | | | | + + + + + + | CO2 | 22 (L)Comment: Testing | 23 - 32 mmol/L | EXTERNAL | | | | performed at [facility], [address] | | LAB | | | | [address], | | | | | | [place] [address] | | | | + + + + + + | Anion Gap | 11Comment: Testing | 5 - 20 mmol/L | EXTERNAL | | | | performed at [facility], [address] | | LAB | | | | [address], | | | | | | [place] [address] | | | | + + + + + + | Glucose, | 117 (H)Comment: Testing | 65 - 99 mg/dL | EXTERNAL | | | Fasting | performed at [facility], [address] | | LAB | | | | [address], | | | | | | [place] [address] | | | | + + + + + + | BUN | 17Comment: Testing | 8 - 25 mg/dL | EXTERNAL | | | | performed at [facility], [address] | | LAB | | | | [address], | | | | | | [place] [address] | | | | + + + + + + | Creatinine | 0.79Comment: Testing | 0.50 - 1.00 | EXTERNAL | | | | performed at [facility], [address] | mg/dL | LAB | | | | [address], | | | | | | [place] [address] | | | | + + + + + + | BUN/Creatin | 22Comment: Testing | | EXTERNAL | | | ine Ratio | performed at [facility], [address] | | LAB | | | | [address], | | | | | | [place] [address] | | | | + + + + + + | Calcium | 8.1 (L)Comment: Testing | 8.5 - 10.2 | EXTERNAL | | | | performed at [facility], [address] | mg/dL | LAB | | | | [facility], | | | | | | [place] [address] | | | | + + + [...] | | | | | | at [facility], [address] | | | | | | [address], | | | | | | [place] [address] | | | | + + + + + + + + | Specimen | + + | Blood specimen | | (specimen) | + + + +---------+ + + | Performing | Address | City/State/Zipcode | Phone Number | | Organization | | | | + +---------+ + + | EXTERNAL LAB | | | | + +---------+ + + FL C-Arm > 1 Hour (03/31/2014 1:55 PM PDT) + + | Specimen | + + | | + + + + + | Impressions | Performed At | + + + | 1. As above. | | + + + + + + | Narrative | Performed At | + + + | [facility] C-ARM FLUORO OVER 1 HOUR 03/31/2014 1:55 PM | | | HISTORY: Spine surgery. TECHNIQUE: Lumbar spine 2 views using | | | C-arm technique. FINDINGS: Compared with 03/30/14. Limited | | | fluoroscopic images demonstrate surgical instrumentation at L4/5 and | | | L5/S1. | | + + + + + | Procedure Note | + + | Fabián, Rad Conversion - 01/14/2019 11:10 AM PDT [facility] MC[facility] C-ARM FLUORO OVER 1 | | HOUR03/31/2014 1:55 PM HISTORY:Spine surgery. TECHNIQUE:Lumbar spine 2 views using C-arm | | technique. FINDINGS:Compared with 03/30/14. Limited fluoroscopic images demonstrate | | surgical instrumentation at L4/5 and L5/S1. IMPRESSION: 1. As above. Electronically | | signed by Jewel Shukla MD on 03/31/2014 2:07 PM | |Spine surgery. | | | |TECHNIQUE: | |Lumbar spine 2 views using C-arm technique. | | | |FINDINGS: | |Compared with 03/30/14. Limited fluoroscopic images demonstrate surgical instrumentation at L4/5 and L5/S1. | | | |IMPRESSION: | |1. As above. | | | | | + + CT Lumbar Spine wo Contrast (03/30/2014 8:11 AM PDT) + + | Specimen | + + | | + + + + + | Impressions | Performed At | + + + | 1. ACDF of L4-L5 and L5-S1 with multiple screws and intervertebral | | | disc spaces. No hardware complication. | | + + + + + + | Narrative | Performed At | + + + | [facility] 1945 68 years Female 03/30/2014 8:[address] | | | LUMBAR SPINE WO CONTRAST INDICATION: Back pain. COMPARISON: | | | January 18, 2014 TECHNIQUE: CT scan of the lumbar spine without | | | contrast.1.5-mm thick helically acquired axial images were performed | | | of the lumbar spine in soft tissue and bone algorithm. Coronal and | | | sagittal reconstructions were performed at 2 mm thick slices. | | | FINDINGS: ACDF of L4-L5 and L5-S1 with multiple screws and | | | intervertebral disc spacers at L4-L5 and L5-S1. Descending aortic | | | calcification. Branch iliac vessel calcification. Diffuse | | | osteopenia of the spine. T12-L1: No spinal canal stenosis. No | | | neural foraminal stenosis. L1-L2: No spinal canal stenosis. No | | | neural foraminal stenosis. Mild bilateral facet arthropathy. | | | L2-L3: No spinal canal stenosis. No neural foraminal stenosis. | | | L3-L4: No spinal canal stenosis. No neural foraminal stenosis. Mild | | | circumferential disc bulge. Bilateral mild facet joint arthropathy. | | | L4-L5: Anterolisthesis (grade 1) of L4 on L5. ACDF with | | | intervertebral disc spacer. Mild to moderate spinal canal stenosis. | | | Bilateral mild neural foraminal stenosis. Bilateral facet joint | | | arthropathy L5-S1: Anterolisthesis of L5 on S1 (grade 1). ACDF. | | | Intervertebral disc spacer. Advanced facet joint arthropathy. No | | | spinal canal stenosis. Bilateral mild neural foraminal stenosis. | | + + + + + | Procedure Note | + + | Raoul Lockwood Conversion - 01/14/2019 11:10 AM PDT [facility][birth year][facility] | | Uvbohs3203/30/2014 8:11 AMCT LUMBAR SPINE WO CONTRAST INDICATION: Back pain. COMPARISON: | | January 18, 2014 TECHNIQUE: CT scan of the lumbar spine without contrast.1.5-mm thick | | helically acquired axial images were performed of the lumbar spine in soft tissue and | | bone algorithm. Coronal and sagittal reconstructions were performed at 2 mm thick | | slices. FINDINGS: ACDF of L4-L5 and L5-S1 with multiple screws and intervertebral disc | | spacers at L4-L5 and L5-S1. Descending aortic calcification. Branch iliac vessel | | calcification. Diffuse osteopenia of the spine. T12-L1: No spinal canal stenosis. No | | neural foraminal stenosis. L1-L2: No spinal canal stenosis. No neural foraminal | | stenosis. Mild bilateral facet arthropathy. L2-L3: No spinal canal stenosis. No neural | | foraminal stenosis. L3-L4: No spinal canal stenosis. No neural foraminal stenosis. Mild | | circumferential disc bulge. Bilateral mild facet joint arthropathy. L4-L5: | | Anterolisthesis (grade 1) of L4 on L5. ACDF with intervertebral disc spacer. Mild to | | moderate spinal canal stenosis. Bilateral mild neural foraminal stenosis. Bilateral | | facet joint arthropathy L5-S1: Anterolisthesis of L5 on S1 (grade 1). ACDF. | | Intervertebral disc spacer. Advanced facet joint arthropathy. No spinal canal stenosis. | | Bilateral mild neural foraminal stenosis. IMPRESSION: 1. ACDF of L4-L5 and L5-S1 with | | multiple screws and intervertebral disc spaces. No hardware complication. Electronically | | signed by Neel Decker MD on 03/30/2014 8:37 AM | | | |T12-L1: No spinal canal stenosis. No neural foraminal stenosis. | | | |L1-L2: No spinal canal stenosis. No neural foraminal stenosis. Mild bilateral facet arthrop athy. | | | |L2-L3: No spinal canal stenosis. No neural foraminal stenosis. | | | |L3-L4: No spinal canal stenosis. No neural foraminal stenosis. Mild circumferential disc bu lge. Bilateral mild facet joint arthropathy. | | | |L4-L5: Anterolisthesis (grade 1) of L4 on L5. ACDF with intervertebral disc spacer. Mild to moderate spinal canal stenosis. Bilateral mild neural foraminal stenosis. Bilateral facet j oint arthropathy | | | |L5-S1: Anterolisthesis of L5 on S1 (grade 1). ACDF. Intervertebral disc spacer. Advanced fa cet joint arthropathy. No spinal canal stenosis. Bilateral mild neural foraminal stenosis. | | | |IMPRESSION: | |1. ACDF of L4-L5 and L5-S1 with multiple screws and intervertebral disc spaces. No hardwar e complication. | | | | | + + External Lab: [facility] (03/30/2014 5:46 AM PDT) + + + + + + | Component | Value | Ref Range | Performed | Pathologist | | | | | At | Signature | + + + + + + | WBC | 12.3 (H)Comment: Testing | 3.8 - 11.0 K/uL | EXTERNAL | | | | performed at [facility], [address] | | LAB | | | | [address], | | | | | | [place] [address] | | | | + + + + + + | RED CELL | 3.29 (L)Comment: Testing | 3.70 - 5.10 | EXTERNAL | | | COUNT | performed at [facility], [address] | M/uL | LAB | | | | [address], | | | | | | [place] [address] | | | | + + + + + + | Hgb | 9.9 (L)Comment: Testing | 11.3 - 15.5 | EXTERNAL | | | | performed at [facility], [address] | g/dL | LAB | | | | [address], | | | | | | [place] [address] | | | | + + + + + + | Hematocrit, | 30.8 (L)Comment: Testing | 34.0 - 46.0 % | EXTERNAL | | | POC | performed at [facility], [address] | | LAB | | | | [address], | | | | | | [place] [address] | | | | + + + + + + | MCV | 93.5Comment: Testing | 80.0 - 100.0 fl | EXTERNAL | | | | performed at [facility], [address] | | LAB | | | | [address], | | | | | | [place] [address] | | | | + + + + + + | MCH | 30.0Comment: Testing | 27.0 - 34.0 pg | EXTERNAL | | | | performed at [facility], [address] | | LAB | | | | [address], | | | | | | [place] [address] | | | | + + + + + + | MCHC | 32.1Comment: Testing | 32.0 - 35.5 | EXTERNAL | | | | performed at [facility], [address] | g/dL | LAB | | | | [address], | | | | | | [place], [place] [address] | | | | + + + + + + | RDW-CV | 65.6 (H)Comment: Testing | 37 - 53 fl | EXTERNAL | | | | performed at [facility], [address] | | LAB | | | | [address], | | | | | | [place] [address] | | | | + + + + + + | Platelet | 177Comment: Testing | 150 - 400 K/uL | EXTERNAL | | | Count | performed at [facility], [address] | | LAB | | | Plasma | [address], | | | | | | [place] [address] | | | | + + + + + + | MPV | 8.0Comment: Testing | fl | EXTERNAL | | | | performed at [facility], [address] | | LAB | | | | [address], | | | | | | [place] [address] | | | | + + + + + + | Differentia | AUTOMATEDComment: | | EXTERNAL | | | l Type | Testing performed at | | LAB | | | | [facility], [address] | | | | | | [place] | | | | | | [address] | | | | + + + + + + | % Segmented | 79.7Comment: Testing | % | EXTERNAL | | | | performed at [facility], [address] | | LAB | | | Neutrophils | [address], | | | | | | [place] [address] | | | | + + + + + + | % | 9.4Comment: Testing | % | EXTERNAL | | | Lymphocytes | performed at [facility], [address] | | LAB | | | | [address], | | | | | | [place] [address] | | | | + + + + + + | % Monocytes | 10.7Comment: Testing | % | EXTERNAL | | | | performed at [facility], [address] | | LAB | | | | [address], | | | | | | [place] [address] | | | | + + + + + + | % | 0.1Comment: Testing | % | EXTERNAL | | | Eosinophils | performed at [facility], [address] | | LAB | | | | [address], | | | | | | [place] [address] | | | | + + + + + + | % Basophils | 0.1Comment: Testing | % | EXTERNAL | | | | performed at [facility], [address] | | LAB | | | | [address], | | | | | | [place] [address] | | | | + + + + + + | Absolute | 9.8 (H)Comment: Testing | 1.9 - 7.4 K/uL | EXTERNAL | | | Segmented | performed at [facility], [address] | | LAB | | | Neutrophils | [address], | | | | | | [place] [address] | | | | + + + + + + | Absolute | 1.2Comment: Testing | 1.0 - 3.9 K/uL | EXTERNAL | | | Lymphocytes | performed at [facility], [address] | | LAB | | | | [address], | | | | | | [place] [address] | | | | + + + + + + | Absolute | 1.3 (H)Comment: Testing | 0 - 0.8 K/uL | EXTERNAL | | | Monocytes | performed at [facility], [address] | | LAB | | | | [address], | | | | | | [place] [address] | | | | + + + + + + | Absolute | 0.0Comment: Testing | 0 - 0.5 K/uL | EXTERNAL | | | Eosinophils | performed at [facility], [address] | | LAB | | | | [address], | | | | | | [place] [address] | | | | + + + + + + | Absolute | 0.0Comment: Testing | 0 - 0.1 K/uL | EXTERNAL | | | Basophils | performed at [facility], [address] | | LAB | | | | [address], | | | | | | [place] [address] | | | | + + + [...] + +---------+ + + Basic Metabolic Panel (03/30/2014 5:46 AM PDT) + + + + + + | Component | Value | Ref Range | Performed | Pathologist | | | | | At | Signature | + + + + + + | Na | 134 (L)Comment: Testing | 135 - 143 | EXTERNAL | | | | performed at [facility], [address] | mmol/L | LAB | | | | [address], | | | | | | [place] [address] | | | | + + + + + + | K | 4.6Comment: Testing | 3.5 - 4.9 | EXTERNAL | | | | performed at [facility], [address] | mmol/L | LAB | | | | [address], | | | | | | [place] [address] | | | | + + + + + + | Cl | 103Comment: Testing | 99 - 109 mmol/L | EXTERNAL | | | | performed at [facility], [address] | | LAB | | | | [address], | | | | | | [place] [address] | | | | + + + + + + | CO2 | 28Comment: Testing | 23 - 32 mmol/L | EXTERNAL | | | | performed at [facility], [address] | | LAB | | | | [address], | | | | | | [place] [address] | | | | + + + + + + | Anion Gap | 8Comment: Testing | 5 - 20 mmol/L | EXTERNAL | | | | performed at [facility], [address] | | LAB | | | | [address], | | | | | | [place] [address] | | | | + + + + + + | Glucose, | 106 (H)Comment: Testing | 65 - 99 mg/dL | EXTERNAL | | | Fasting | performed at [facility], [address] | | LAB | | | | [address], | | | | | | [place] [address] | | | | + + + + + + | BUN | 21Comment: Testing | 8 - 25 mg/dL | EXTERNAL | | | | performed at [facility], [address] | | LAB | | | | [address], | | | | | | [place] [address] | | | | + + + + + + | Creatinine | 0.87Comment: Testing | 0.50 - 1.00 | EXTERNAL | | | | performed at [facility], [address] | mg/dL | LAB | | | | [address], | | | | | | [place] [address] | | | | + + + + + + | BUN/Creatin | 24Comment: Testing | | EXTERNAL | | | ine Ratio | performed at [facility], [address] | | LAB | | | | [address], | | | | | | [place] [address] | | | | + + + + + + | Calcium | 8.5Comment: Testing | 8.5 - 10.2 | EXTERNAL | | | | performed at [facility], [address] | mg/dL | LAB | | | | [facility], | | | | | | [place] [address] | | | | + + + [...] | | | | | | at [facility], [address] | | | | | | [facility], | | | | | | [place] [address] | | | | + + + + + + + + | Specimen | + + | Blood specimen | | (specimen) | + + + +---------+ + + | Performing | Address | City/State/Zipcode | Phone Number | | Organization | | | | + +---------+ + + | EXTERNAL LAB | | | | + +---------+ + + FL C-Arm > 1 Hour (03/29/2014 11:17 AM PDT) + + | Specimen | + + | | + + + + + | Impressions | Performed At | + + + | 1. Intraoperative films, as above. | | + + + + + + | Narrative | Performed At | + + + | THEA WILSON C-ARM FLUORO OVER 1 HOUR 03/29/2014 11:17 AM | | | HISTORY: Lumbar spine surgery. TECHNIQUE: Lumbar spine 4 views | | | using C-arm technique. Compared with an earlier study of 03/29/14. | | | FINDINGS: Limited views demonstrate hardware in the lumbar spine at | | | L4/5 and L5/S1. | | + + + + + | Procedure Note | + + | Raoul Lockwood Conversion - 01/14/2019 11:10 AM PDT THEA CARMONA | | XR C-ARM FLUORO OVER 1 HOUR | | 03/29/2014 11:17 AM | | | | HISTORY: | | Lumbar spine surgery. | | | | TECHNIQUE: | | Lumbar spine 4 views using C-arm technique. Compared with an earlier study of 03/29/14. | | | | FINDINGS: | | Limited views demonstrate hardware in the lumbar spine at L4/5 and L5/S1. | | | | IMPRESSION: | | 1. Intraoperative films, as above. | | | | | + + FL C-Arm > 1 Hour (03/29/2014 10:56 AM PDT) + + | Specimen | + + | | + + + + + | Impressions | Performed At | + + + | FINDINGS/ IMPRESSION: Limited fluoroscopic views demonstrate | | | surgical instrumentation overlying the L4-L5 and L5-S1 disc space. | | | | | + + + + + + | Narrative | Performed At | + + + | THEA CARMONA 1945 XR C-ARM FLUORO OVER 1 HOUR 03/29/2014 | | | 10:56 AM EXAMINATION: Limited operative fluoroscopic views. | | | INDICATION: Intraoperative verification. COMPARISON: None | | + + + + + | Procedure Note | + + | Raoul Lockwood Conversion - 01/14/2019 11:10 AM NEHA CARMONA1945XR C-ARM | | FLUORO OVER 1 HOUR03/29/2014 10:56 AM EXAMINATION: Limited operative fluoroscopic views. | | INDICATION: Intraoperative verification. COMPARISON: None IMPRESSION: FINDINGS/ | | IMPRESSION: Limited fluoroscopic views demonstrate surgical instrumentation overlying | | the L4-L5 and L5-S1 disc space. | | 11:58 AM | | | |INDICATION: Intraoperative verification. | | | |COMPARISON: None | | | |IMPRESSION: | |FINDINGS/ IMPRESSION: | | | |Limited fluoroscopic views demonstrate surgical instrumentation overlying the L4-L5 and L5- S1 disc space. | | | | | + + Type and Screen (03/29/2014 7:04 AM PDT) + + + + + + | Component | Value | Ref Range | Performed | Pathologist | | | | | At | Signature | + + + + + + | ABO Rh | A POSITIVE | | EXTERNAL | | | | | | LAB | | + + + + + + | ABO Rh | Testing performed at | | EXTERNAL | | | | [facility];[address] | | LAB | | | | [address];[place] [address] | | | | + + + + + + | Antibody | NEGATIVE | | EXTERNAL | | | Screen | | | LAB | | + + + + + + | Antibody | Testing performed at | | EXTERNAL | | | Screen | [facility];[address] | | LAB | | | | [address];[place] [address] | | | | + + + + + + | BB BAND | [id number] | | EXTERNAL | | | | | | LAB | | + + + + + + | BB BAND | Testing performed at | | EXTERNAL | | | | [facility];[address] | | LAB | | | | [address];[place] [address] | | | | + + + [...]
--- OUTSIDE RECORDS SUMMARY | ~2019-05-05 | XMS | Encounter Summary ---
Demographics + + + | Address | [address] | | | [place] [address] | + + + | Home Phone [...] | [facility] | | | and [place] | + + + | Organization | [facility] | | | [...] [place] | | | | | [address] | | + + + + + Care Team Providers + +------+ + | Care Title One Reading Teacher Name | Role | Phone | [...] Edmond Azar | | | | | [phone] | [place] [address] | | +--------+ + + + + [...] | | | | | [place] [address] | | | | | | [phone] | | | | | | | | +--------+ + + + + | 06/08/ | Office | Physical Medicine | Rocky Santos | | | 2019 | Visit | and Rehabilitation | MD Nichole Landis | | | | | | [place] | | | | | | [address] | | | | | | | | +--------+ + + + + | 06/16/ | Appointment | Pulmonology | Eveline Jaffe | | 2019 | | | MD Nichole Carter [address] | | | | | | [address] | | | | | | [place] [address] | | | | | | [phone] | | | | | | | | +--------+ + + + + | 06/16/ | Office | Pulmonology | Eveline Jaffe | | | 2019 | Visit | | MD Raul [address] | | | | | | [address] | | | | | | [place] [address] | | | | | | [phone] | | | | | | | | +--------+ + + + + | 08/24/ | Office | Cardiology | Anisha Lopez DO | | | 2019 | Visit | | [address] | | | | | | [place] | | | | | | [address] | | | | | | | [...]
--- OUTSIDE RECORDS SUMMARY | ~2019-05-05 | XMS | Encounter Summary ---
Demographics + + + | Address | [address] | | | [place] [address] | + + + | Home Phone [...] [place] | | | | | [address] | | + + + + + Care Team Providers + +------+ + | Care Master Control Supervisor Name | Role | Phone | [...] + + | 06/09/ | Office | [facility] [place] | Offenstein, | Pulmonary nodule | | 2013 | Visit | PULMONARY [address] | Ayana Looney MD | (Primary Dx); | | | | [address] [place], | | Rheumatoid arthritis | | | | [place] [address] | | ([facility]); Snoring | | | | [phone] | | | +--------+---------+ + + + [...] Lien [facility]a [place] [facility] [address] [place], [address] HPI Thea Carmona is a 68 y.o. [...] arthritis on prednisone and methotrexate, Dr. 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 I am going to consult with the ID specialist at [facility] regard ing best approaches, and if we [...] until it can be refilled by her swedger. This may be a blessing given the [...] made to ensure accuracy; however, inadvertent computerized calender let off operator errors may be pre sent. documented [...] | | | | | [place] [address] | | | | | | [phone] | | | | | | | | +--------+ + + + + | 06/08/ | Office | Physical Medicine | Rocky Santos, | | | 2019 | Visit | and Rehabilitation | MD Nichole Hinds [address] | | | | | | [place] | | | | | | [address] | | | | | | | | +--------+ + + + + | 06/16/ | Appointment | Pulmonology | Eveline Jaffe | | | 2019 | | | MD Nichole Carter | | | | | | [address] [place] | | | | | | [place] [address] | | | | | | [phone] | | | | | | | | +--------+ + + + + | 06/16/ | Office | Pulmonology | Eveline Jaffe | | | 2019 | Visit | | MD Nichole Carter [address] | | | | | | [address] [place] | | | | | | [place] [address] | | | | | | [phone] | | | | | | | | +--------+ + + + + | 08/24/ | Office | Cardiology | Anisha Lopez DO | | | 2019 | Visit | | [address] | | | | | | [place], [place] | | | | | | [address] | | | | | | | [...]
--- OUTSIDE RECORDS SUMMARY | ~2019-05-05 | XMS | Encounter Summary ---
Demographics + + + | Address | [address] | | | [place] [address] | + + + | Home Phone [...] [place] | | | | | [address] | | + + + + + Care Team Providers + +------+ + | Care Dough Machine Operator Name | Role | Phone | + +------+ + | Davis Ivan MD | PCP | | + +------+ + Encounter Details +--------+ + + + + | Date | Type | Department | Care Team | Description | +--------+ + + + + | 01/09/ | Hospital | [facility] | Adelita Lu MD | Squamous cell | | 2013 | Encounter | [facility] | [address] [facility] | carcinoma of lung, | | | | ONCOLOGY CLINIC [address] | [place], [place] | stage II, right | | | | [facility] | [address] | (HCC) (Primary Dx); | | | | [place] [address] | [phone] | Squamous cell | | | | [phone] | | carcinoma of lung, | | | | | | stage I, unspecified | | | | | | [...] + + + | Blood Pressure | 107/56 | 01/09/2014 2:53 PM | | | | | PDT | | + + + + + | Pulse | 63 | 01/09/2014 2:53 PM | | | | | PDT | | + + + + + | Temperature | 35.7 C (96.3 F) | 01/09/2014 2:53 PM | | | | | PDT | | + + + + + | Respiratory Rate | - | - | | + + + + + | Oxygen Saturation | 97% | 01/09/2014 2:53 PM | | | | | PDT | | + + + + + | Inhaled Oxygen | - | - | | | Concentration | | | | + + + + + | Weight | 63.9 kg (140 lb 14 | 01/09/2014 2:53 PM | | | | oz) | PDT | | + + + + + | Height | 157 cm (5' 1.81") | 01/09/2014 2:53 PM | | | | | PDT | | + + + + + | Body Mass Index | 25.92 | 01/09/2014 2:53 PM | | | | | [...] encounter Progress Notes Adelita Lu MD - 01/09/2014 4:19 PM PDT Hem-Onc Progress Note [facility] Patient name:Thea Carmona : 1945 Age: 68 y.o. CSN: [id number] Date of Service: 01/09/2014 Identifying Statement: Thea Carmona is a 68 y.o. female from [facility] with clinical stage II, pathologic stage IB [...] lewis 2.CT-guided biopsy by interventional radiology at [facility] of the right lung massshows squamous [...] by Dr. Mace , thoracic surgeon at [facility] for consideration of broncho scopy, right [...] lymphad enectomy Current Review of Systems: Constitutional: Having a lot of Fatigue-energy is a little better. Denies high fevers, león ing chills, anorexia, She had nausea & vomiting, she had 6 kg weight loss since her last vis it, denies night sweats. She was vomiting blood also. She had a colonoscopy. Ear, Nose, Mouth, Throat: Denies odynophagia, dysphagia, or tinnitus. Cardiovascular: Denies shortness of breath, dyspnea on exertion, chest pain, palpitations o r orthopnea. Respiratory: Denies cough, hemoptysis, or sputum production. Gastrointestinal: Denies abdominal pain, constipation, diarrhea, melena, or bright red bloo d per rectum. Genitourinary: Denies hematuria or dysuria. Musculoskeletal: Denies joint pain or tenderness. Neurologic: Denies headache, visual changes, or numbness/tingling of the extremities. Endocrine: Denies peripheral edema or heat/cold intolerance. Hematologic: Denies spontaneous bruising or bleeding. Integumentary: Denies rash, wounds or other skin concerns. Pain: Denies pain. Note: She spent 8 days in the hospital with sepsis and colitis, with 6 days in ICU. She fariba t to the ER at [facility] with excrutiating arthritis pain. Past Medical History: Past Medical History Diagnosis Date COPD (chronic obstructive pulmonary disease) ([facility]) on albuterol Spondylolisthesis of cervical region Spinal stenosis has tried cortisone injections Osteoporosis Depression Pneumonia 2009 hospitalized 5 days Rheumatoid arthritis(714.0) ([facility]) on prednisone and methotrexate, Dr. Lewis [place] Hyperlipidemia on simvastatin Hypertension on clonidine and lisinopril Hypothyroidism GERD (gastroesophageal reflux disease) Stroke ([facility]) 2006 Stroke ([facility]) 2007 Squamous cell carcinoma of lung ([facility]) 07/2013 MARCE (obstructive sleep apnea) [...] mg by mouth Daily. RESPIRATORY THERAPY SUPPLIES [facility] ResMed S9 auto CPAP 5-9 cm H2O. Heater and Humidifier . All necessary supplies. AHI 11.6. Diagnosis Code(s)327.23, also has co morbid hypertension , history of stroke. Length of Need 99 months. Please send order to [facility]. RESPIRATORY THERAPY SUPPLIES [facility] Respironics autotitrating CPAP at 5-9 cm H2O for life time. Mask, headgear, chin strap, hoses, humidifier chamber and filters. Dx: 327.23 SIMVASTATIN (ZOCOR) 40 MG TABLET Take 40 mg by mouth nightly. VENLAFAXINE (EFFEXOR) 75 MG TABLET Take 37.5 mg by mouth 2 times daily. Modified Medications No medications on file Discontinued Medications No medications on file Physical Exam: Vitals:Temp: [35.7 C (96.3 F)] 35.7 C (96.3 F) Pulse: [63] 63 BP: (107)/(56) 107/56 mmHg Gen.: Performance status ECoG 1 . Well nourished, appears well not in apparent distress.. and a wheelchair today .. Extremities: No edema, cyanosis, clubbing. Skin: Multiple bruises which are baseline. Ecchymosis seen in bilateral upper extremities LABORATORY DATA: Recent Results (from the past 24 hour(s)) CBC WITH DIFFERENTIAL Component Value Range WBC 5.5 4.0-11.0 K/uL RBC 4.22 3.70-5.20 M/uL Hgb 12.1 11.5-16.0 g/dL Hct 38.0 34.0-47.0 % MCV 90.0 83.0-101.0 fL MCH 28.5 28.0-35.0 pg MCHC 31.7 (*) 32.0-36.0 g/dL RDW 19.5 (*) <15.0 % Platelet Count 221 140-440 K/uL MPV 7.3 % Neutrophils 75.6 45.0-82.0 % % Lymphocytes 14.3 (*) 20.0-45.0 % % Monocytes 7.6 4.0-12.0 % % Eosinophils 1.7 0.0-5.0 % % Basophils 0.8 0.0-1.0 % Absolute Neutrophils 4.20 1.80-8.50 K/uL Absolute Lymphocytes 0.80 0.60-3.20 K/uL Absolute Monocytes 0.40 0.00-1.00 K/uL Absolute Eosinophils 0.10 0.00-0.40 K/uL Absolute Basophils 0.00 0.00-0.10 K/uL COMPREHENSIVE METABOLIC PANEL Component Value Range NA 136 136-149 mmol/L K 3.7 3.5-5.1 mmol/L CL 104 98-109 mmol/L CO2 21 (*) 24-31 mmol/L ANION GAP 11 3-16 mmol/L GLUCOSE 116 (*) 70-109 mg/dL BUN 9 7-18 mg/dL Creatinine, Serum 0.78 0.60-1.30 mg/dL eGFR if not >60 >=60 mL/min/1.73m2 CALCIUM 8.9 8.3-10.5 mg/dL ALBUMIN 3.1 (*) 3.2-5.0 g/dL BILIRUBIN TOTAL 0.5 0.1-1.5 mg/dL Total protein 6.4 6.0-7.8 g/dL AST 24 10-42 U/L ALT 16 6-45 U/L ALK PHOS 57 40-110 U/L GLOBULIN 3.3 Albumin/Globulin ratio 0.9 BUN/CREA 11.5 Imaging: CT scan chest with contrast: 01/05/2014 Status post interval right lower lobect dina. A new 9 x 6 mm nodule is seen in the right lower chest that may represent metastasis or new primary. Right hilar adenopathy is seen. There is narrowing of the bronchus intermedius that may be due to tumor versus secretions of the airway. Mildly enlarged precarinal lymph node is seen. Status post previous cholecystectomy. IMPRESSION: Stage IB squamous non-small cell right lung cancer status post lobectomy 2. New nodule seen in the right lung primary versus metastatic 3. Poor performance status and not a candidate for chemotherapy 4. Recent admission to the hospital for ischemic colitis PLAN: Patient says that she has a followup CT scan set up in [facility] in 6 month s Followup after that Total time face to face discussion with the patient and family was 20 minutes, more than 5 0% of the time was spent counseling and coordination of care. Adelita Lu MD Portions of this chart may have been created with [employer] voice recognition software. Occasi onal wrong-word or sound-alike substitutions may have occurred due to the inherent guzman itations of voice recognition software. Please read the chart carefully and recognize, using context, where these substitutions have occurred. Melony Rod RN - 01/09/2014 2:49 PM PDTHere for 3 month follow up. REVIEW OF SYSTEMS Constitutional: Having a lot of Fatigue-energy is a little better. Denies high fevers, sha kenya chills, anorexia, She had nausea & vomiting, she had 6 kg weight loss since her last v isit, denies night sweats. She was vomiting blood also. She had a colonoscopy. Ear, Nose, Mouth, Throat: Denies odynophagia, dysphagia, or tinnitus. Cardiovascular: Denies shortness of breath, dyspnea on exertion, chest pain, palpitations o r orthopnea. Respiratory: Denies cough, hemoptysis, or sputum production. Gastrointestinal: Denies abdominal pain, constipation, diarrhea, melena, or bright red bloo d per rectum. Genitourinary: Denies hematuria or dysuria. Musculoskeletal: Denies joint pain or tenderness. Neurologic: Denies headache, visual changes, or numbness/tingling of the extremities. Endocrine: Denies peripheral edema or heat/cold intolerance. Hematologic: Denies spontaneous bruising or bleeding. Integumentary: Denies rash, wounds or other skin concerns. Pain: Denies pain. Note: She spent 8 days in the hospital with sepsis and colitis, with 6 days in ICU. She fariba t to the ER at [facility] with excrutiating arthritis pain. They gave her a shot and sent her irvin e. She passed out at home and went back to the hospital via ambulance. Electronically fady d by Melony Dhaliwal RN at 01/09/2014 3:05 PM PDTdocumented in this encounter Plan of Treatment +--------+ + + + + | Date | Type | Specialty | Care Team | Description | +--------+ + + + + | 05/30/ | Office | Rheumatology | Santosh Sumner, | | | 2018 | Visit | | [address] | | | | | | [facility] | | | | | | [place] [address] | | | | | | [phone] | | | | | | | | +--------+ + + + + | 06/08/ | Office | Physical Medicine | Rocky Santos, | | | 2019 | Visit | and Rehabilitation | MD Nichole Hind[address] | | | | | | [place] | | | | | | [address] | | | | | | | | +--------+ + + + + | 06/16/ | Appointment | Pulmonology | Eveline Jaffe | | | 2019 | | | MD Nichloe Carter [address] | | | | | | [address] [place] | | | | | | [place] [address] | | | | | | [phone] | | | | | | | | +--------+ + + + + | 06/16/ | Office | Pulmonology | Eveline Jaffe | | | 2019 | Visit | | MD Nichole Carter [address] | | | | | | [address] [place] | | | | | | [place] [address] | | | | | | [phone] | | | | | | | | +--------+ + + + + | 08/24/ | Office | Cardiology | Anisha Lopez DO | | | 2019 | Visit | | [address] | | | | | | [place] | | | | | | [address] | | | | | | | | +--------+ + + + + documented as of this encounter Procedures + +--------+ + + + | Procedure Name | Priori | Date/Time | Associated Diagnosis | Comments | | | ty | | | | + +--------+ + + + | CBC WITH | STAT | 01/09/2014 | Squamous cell | Results for this | | DIFFERENTIAL | | 2:29 PM | carcinoma of lung, | procedure are in the | | | | PDT | stage II, right | results section. | | | | | (HCC) | | + +--------+ + + + | COMPREHENSIVE | STAT | 01/09/2014 | Squamous cell | Results for this | | METABOLIC PANEL | | 2:29 PM | carcinoma of lung, | procedure are in the | | | | PDT | stage II, right | results section. | | | | | (HCC) | | + +--------+ + + + documented in this encounter Results Comprehensive Metabolic Panel (01/09/2014 [...] | | | FILTRATION | mL/min/1.73m2 | [facility] | | | [place] | RATE,ESTIMATED | | MEDICAL | | | | mL/min/1.75x6Azqq than | | CENTER - | | [...] | | | | | mg/dL | [facility] | | | | | | MEDICAL | | | | | | CENTER - | | | | | | LABORATORY | | + + + + + + | Albumin | 3.1 (L) | 3.2 - 5.0 g/dL | [facility] | | | | | | [facility] | | | | | | [...] [address] | [place] | [phone] | | [facility] | | [address] | | | - LABORATORY | | | | + + + + + | [facility] | [address] | [place] | | | [facility] | | [address] | | | - LABORATORY | | | | + + + + + CBC with Differential (01/09/2014 2:29 PM PDT) + + + + + + | Component | Value | Ref Range | Performed | Pathologist | | | | | At | Signature | + + + + + + | WBC | 5.5 | 4.0 - 11.0 K/uL | [facility] | | | | | [...] + | [facility] | [address] | [place] | [phone] | | [facility] | | [address] | | | - LABORATORY | | | | + + + + + | [facility] | [address] | [place], [place] | | | [facility] | | [address] | | | - LABORATORY | | | | + + + + + documented in this encounter Visit Diagnoses + + | Diagnosis | + + | Squamous cell carcinoma of lung, stage II, right (HCC) - Primary | + + | Squamous cell carcinoma of lung, stage I, unspecified laterality (HCC) | + + documented in this encounter
--- OUTSIDE RECORDS SUMMARY | ~2019-05-05 | XMS | Encounter Summary ---
Demographics + + + | Address | [address] | | | [place] [address] | + + + | Home Phone | | + + + | Preferred Language | Unknown | + + + | Marital Status | | + + + | Denominational Affiliation | Unknown | + + + | Race | Unknown | + + + | Ethnic Group | Unknown | + + + Author + + + | Author | [facility] | | | and [place] | + + + | Organization | [facility] | | [...] [place] | | | | | [address] | | + + + + + Care Team Providers + +------+ + | Care Sterilizer Operator Name | Role | Phone | + +------+ + | Davis Ivan MD | PCP | | + +------+ + Encounter Details +--------+ + + + + | Date | Type | Department | Care Team | Description | +--------+ + + + + | 04/17/ | Orders Only | [facility] [place] | Sara Evans, | COPD (chronic | | 2013 | | PULMONARY [address] | RN | obstructive | | | | [place], | | pulmonary disease) | | | | [place] [address] | | | | | | [phone] | | | +--------+ + + + [...] | 05/30/ | Office | Rheumatology | Kimbunny Santosh, | | | 2018 | Visit | | [address] | | | | | | [place] | | | | | | [place] [address] | | | | | | [phone] | | | | | | | | +--------+ + + + + | 06/08/ | Office | Physical Medicine | Rocky Santos, | | | 2019 | Visit | and Rehabilitation | MD Nichole Landis | | | | | | [place] | | | | | | [id number] | | | | | | | | +--------+ + + + + | 06/16/ | Appointment | Pulmonology | Eveline Jaffe | | 2019 | | | MD Nichole [address] | | | | | | [address] | | | | | | [place] [address] | | | | | | [phone] | | | | | | | | +--------+ + + + + | 06/16/ | Office | Pulmonology | Eveline Jaffe | | | 2019 | Visit | | MD Raul [address] | | | | | | [place] [address] | | | | | | [place] [address] | | | | | | [phone] | | | | | | | | +--------+ + + + + | 08/24/ | Office | Cardiology | Anisha Lopez DO | | | 2019 | Visit | | [address] | | | | | | [place] | | | | | | [phone] | | | | | | | | +--------+ + + + + documented as of this encounter Visit Diagnoses + + | Diagnosis | + + | COPD (chronic obstructive pulmonary disease) Chronic airway obstruction, not | | elsewhere classified | + + documented in this encounter"
--- OUTSIDE RECORDS SUMMARY | ~2019-05-05 | XMS | Encounter Summary ---
Demographics + + + | Address | [address] | | | [place] [address] | + + + | Home Phone [...] [place] | | | | | [address] | | + + + + + Care Team Providers + +------+ + | Care Supervisor Dried Yeast Name | Role | Phone | + +------+ + | Davis Ivan MD | PCP | | + +------+ + Encounter Details +--------+ + + + + | Date | Type | Department | Care Team | Description | +--------+ + + + + | 08/18/ | Abstract | [facility] | [facility] | | | 2014 | | [facility] | [facility] | | | | | [facility] [address] | | | | | | [address] | | | | | | [place] [address] | | | | | | [phone] | | | +--------+ + + + [...] | | | | | [place] [address] | | | | | | [phone] | | | | | | | | +--------+ + + + + | 06/08/ | Office | Physical Medicine | Rocky Santos, | | | 2019 | Visit | and Rehabilitation | MD [address] | | | | | | [place] | | | | | | [address] | | | | | | | | +--------+ + + + + | 06/16/ | Appointment | Pulmonology | Eveline Jaffe | | 2019 | | | MD [address] | | | | | | [address] | | | | | | [place] [address] | | | | | | [phone] | | | | | | | | +--------+ + + + + | 06/16/ | Office | Pulmonology | Eveline Jaffe | | | 2019 | Visit | | MD Raul [address] | | | | | | [address] | | | | | | [place] [address] | | | | | | [phone] | | | | | | | | +--------+ + + + + | 08/24/ | Office | Cardiology | Anisha Lopez DO | | | 2019 | Visit | | [address] | | | | | | [place] | | | | | | [address] | | | | | | | | +--------+ + + + + documented as of this encounter Visit Diagnoses Not on filedocumented in this encounter"
--- OUTSIDE RECORDS SUMMARY | ~2019-05-05 | XMS | Encounter Summary ---
Demographics + + + | Address | [address] | | | [place] [address] | + + + | Home Phone [...] [place] | | | | | [address] | | + + + + + Care Team Providers + +------+ + | Care Printing Machinist Name | Role | Phone | + [...] | +--------+ + + + + | 08/04/ | Hospital | [facility] | Jimmy Banegas DO | | | 2014 | Encounter | MED CTR RADIATION | [address] | | | | | ONCOLOGY [address] | [place] | | | | | [place], | [address] | | | | | [place] [address] | | | | | | [phone] | | | +--------+ + + + [...] | | | | | [place] [address] | | | | | | [phone] | | | | | | | | +--------+ + + + + | 06/08/ | Office | Physical Medicine | Rocky Santos, | | | 2019 | Visit | and Rehabilitation | [address] | | | | | | [place] | | | | | | [address] | | | | | | | | +--------+ + + + + | 06/16/ | Appointment | Pulmonology | Eveline Jaffe | | | 2019 | | | MD [address] | | | | | | [address] [place] | | | | | | [place] [address] | | | | | | [phone] | | | | | | | | +--------+ + + + + | 06/16/ | Office | Pulmonology | Eveline Jaffe | | | 2019 | Visit | | MD [address]ole [address] | | | | | | [address] [place] | | | | | | [place] [address] | | | | | | [phone] | | | | | | | | +--------+ + + + + | 08/24/ | Office | Cardiology | Anisha Lopez DO | | | 2019 | Visit | | [address] | | | | | | [place] | | | | | | [phone] | | | | | | | | +--------+ + + + + documented as of this encounter Visit Diagnoses Not on filedocumented in this encounter"
--- OUTSIDE RECORDS SUMMARY | ~2019-05-05 | XMS | Encounter Summary ---
Demographics + + + | Address | [address] | | | [place] [address] | + + + | Home Phone | | + + + | Preferred Language | Unknown | + + + | Marital Status | | + + + | Confucianist Affiliation | Unknown | + + + | Race | Unknown | + + + | Ethnic Group | Unknown | + + + Author + + + | Author | [facility] | | | and [place] | + + + | Organization | [facility] | | | [...] [place] | | | | | [address] | | + + + + + Care Team Providers + +------+ + | Care Spa Coordinator Name | Role | Phone | [...] | | | | | | | [place] REPAIR | | | | | | [...] | | | | | [address] | [address] [place] | | | | | [place], [place] | [place] [address] | | | | | [address] | [phone] | | | | | [phone] | | | +--------+ + + + [...] +----+---+ + + | | 1 | Raymond | | | | 0 | 43-degrees [...] +----+---+ + + | | 1 | Raymond off | | | | 1 | [...] 10/27/17 1400 by | | eral | [id number] catheter system; | Yenifer Shelton RN | [...] | 2018 | Visit | | [address] | | | | | | [facility] | | | | | | [place] [address] | | | | | | [phone] | | | | | | | | +--------+ + + + + | 06/08/ | Office | Physical Medicine | Rocky Santos, | | | 2019 | Visit | and Rehabilitation | MD Nichole [address] | | | | | | [place] | | | | | | [address] | | | | | | | | +--------+ + + + + | 06/16/ | Appointment | Pulmonology | Eveline Jaffe | | 2019 | | | MD Nich[address] | | | | | | [address] [place] | | | | | | [place] [address] | | | | | | [phone] | | | | | | | | +--------+ + + + + | 06/16/ | Office | Pulmonology | Eveline Jaffe | | | 2019 | Visit | | MD Nichole Carter | | | | | | [address] [place] | | | | | | [place] [address] | | | | | | [phone] | | | | | | | | +--------+ + + + + | 08/24/ | Office | Cardiology | Anisha Lopez DO | | | 2020 | Visit | | [address] | | | | | | [place] | | | | | | [address] | | | | | | | [...]
--- OUTSIDE RECORDS SUMMARY | ~2019-05-05 | XMS | Encounter Summary ---
Demographics + + + | Address | [address] | | | [place] [address] | + + + | Home Phone [...] [place] | | | | | [address] | | + + + + + Care Team Providers + +------+ + | Care Acid Purification Equipment Operator Name | Role | Phone | [...] | | | | | | | MS REPAIR | | | | | | [...] + + | 10/27/ | Hospital | [facility] | Giuliano Padilla, | Osteoarthritis of | | 2018 | Encounter | MED CTR OR INTRA OP | MD [address] | first | | | | [address] | [place], [place] | carpometacarpal | | | | [place], [place] | [address] | (CMC) joint of one | | | | [address] | | hand | | | | [phone] | | | +--------+ + + + [...] | | | | | [place] [address] | | | | | | [phone] | | | | | | | | +--------+ + + + + | 06/08/ | Office | Physical Medicine | Rocky Santos, | | | 2019 | Visit | and Rehabilitation | [address] | | | | | | [place] | | | | | | [address] | | | | | | | | +--------+ + + + + | 06/16/ | Appointment | Pulmonology | Eveline Jaffe | | 2019 | | | MD [address] | | | | | | [address] [place] | | | | | | [place] [address] | | | | | | [phone] | | | | | | | | +--------+ + + + + | 06/16/ | Office | Pulmonology | Eveline Jaffe | | | 2019 | Visit | | MD [address] | | | | | | [address] [place] | | | | | | [place] [address] | | | | | | [phone] | | | | | | | | +--------+ + + + + | 08/24/ | Office | Cardiology | Anisha Lopez DO | | 2019 | Visit | | [address] | | | | | | [place] | | | | | | [address] | | | | | | | [...]
--- OUTSIDE RECORDS SUMMARY | ~2019-05-05 | XMS | Encounter Summary ---
Demographics + + + | Address | [address] | | | [place] [address] | + + + | Home Phone [...] [place] | | | | | [address] | | + + + + + Care Team Providers + +------+ + | Care Career Developer Name | Role | Phone | + +------+ + | Davis Ivan MD | PCP | | + +------+ + Reason for Visit +--------+ + | Reason | Comments | +--------+ + | Other | CPAP | +--------+ + Encounter Details +--------+ + + + + | Date | Type | Department | Care Team | Description | +--------+ + + + + | 12/22/ | Telephone | [facility] | Offenstein, | Other (CPAP) | | 2013 | | PULMONARY [address] | Ayana Looney MD | | | | | [place], | | | | | | [place] [address] | | | | | | [phone] | | | +--------+ + + + [...] | | | | | [place] [address] | | | | | | [phone] | | | | | | | | +--------+ + + + + | 06/08/ | Office | Physical Medicine | Rocky Santos, | | | 2019 | Visit | and Rehabilitation | [address] | | | | | | [place] | | | | | | [address] | | | | | | | | +--------+ + + + + | 06/16/ | Appointment | Pulmonology | Eveline Jaffe | | 2019 | | | MD [address] | | | | | | [address] [place] | | | | | | [place] [address] | | | | | | [phone] | | | | | | | | +--------+ + + + + | 06/16/ | Office | Pulmonology | Eveline Jaffe | | | 2019 | Visit | | MD [address] | | | | | | [address] [place] | | | | | | [place] [address] | | | | | | [phone] | | | | | | | | +--------+ + + + + | 08/24/ | Office | Cardiology | Anisha Lopez DO | | | 2019 | Visit | | [address] | | | | | | [place] | | | | | | [address] | | | | | | | | +--------+ + + + + documented as of this encounter Visit Diagnoses + + | Diagnosis | + + | Obstructive sleep apnea (adult) (pediatric) - Primary | + + documented in this encounter"
--- OUTSIDE RECORDS SUMMARY | ~2019-05-05 | XMS | Encounter Summary ---
Demographics + + + | Address | [address] | | | [place] [address] | + + + | Home Phone [...] [place] | | | | | [address] | | + + + + + Care Team Providers + +------+ + | Care Truck Shop Supervisor Name | Role | Phone | [...] Looney MD | | | | | [place], | | | | | | [place] [address] | | | | | | [phone] | | | +--------+--------+ + + + [...] | | | | | [place] [address] | | | | | | [phone] | | | | | | | | +--------+ + + + + | 06/08/ | Office | Physical Medicine | Rocky Santos, | | | 2019 | Visit | and Rehabilitation | MD [address] | | | | | | [place] | | | | | | [address] | | | | | | | | +--------+ + + + + | 06/16/ | Appointment | Pulmonology | Eveline Jaffe | | 2019 | | | MD [address] | | | | | | [address] [place] | | | | | | [place] [address] | | | | | | [phone] | | | | | | | | +--------+ + + + + | 06/16/ | Office | Pulmonology | Eveline Jaffe | | | 2019 | Visit | | MD Raul [address] | | | | | | [address] [place] | | | | | | [place] [address] | | | | | | [phone] | | | | | | | | +--------+ + + + + | 08/24/ | Office | Cardiology | Anisha Lopez DO | | | 2019 | Visit | | [address] | | | | | | [place] | | | | | | [address] | | | | | | | | +--------+ + + + + documented as of this encounter Visit Diagnoses Not on filedocumented in this encounter"
--- OUTSIDE RECORDS SUMMARY | ~2019-05-05 | XMS | Encounter Summary ---
Demographics + + + | Address | [address] | | | [place] [address] | + + + | Home Phone | | + + + | Preferred Language | Unknown | + + + | Marital Status | | + + + | Scientologist Affiliation | Unknown | + + + | Race | Unknown | + + + | Ethnic Group | Unknown | + + + Author + + + | Author | [facility] | | | and [place] | + + + | Organization | [facility] | | | and [...] [place] | | | | | [address] | | + + + + + Care Team Providers + +------+ + | Care Billiard Table Assembler Name | Role | Phone | [...] + | 08/03/ | Refill | [facility] | Adelita Lu MD | Other | | 2014 | | MED CTR MEDICAL | [address] [facility] | | | | | ONCOLOGY CLINIC [address] | [place], [place] | | | | | [facility] | [address] | | | | | [place] [address] | [phone] | | | | | [phone] | | | +--------+--------+ + + + [...] | | | | | [place] [address] | | | | | | [phone] | | | | | | | | +--------+ + + + + | 06/08/ | Office | Physical Medicine | Rocky Santos, | | | 2019 | Visit | and Rehabilitation | [address] | | | | | | [place] | | | | | | [address] | | | | | | | | +--------+ + + + + | 06/16/ | Appointment | Pulmonology | Eveline Jaffe | | | 2019 | | | MD [address] | | | | | | [address] [place] | | | | | | [place] [address] | | | | | | [phone] | | | | | | | | +--------+ + + + + | 06/16/ | Office | Pulmonology | Eveline Jaffe | | | 2019 | Visit | | MD [address] | | | | | | [address] [place] | | | | | | [place] [address] | | | | | | [phone] | | | | | | | | +--------+ + + + + | 08/24/ | Office | Cardiology | Anisha Lopez DO | | | 2019 | Visit | | [address] | | | | | | [place] | | | | | | [address] | | | | | | | | +--------+ + + + + documented as of this encounter Visit Diagnoses + + | Diagnosis | + + | Infection - Primary Unspecified infectious and parasitic diseases | + + documented in this encounter"
--- OUTSIDE RECORDS SUMMARY | ~2019-05-05 | XMS | Encounter Summary ---
Demographics + + + | Address | [address] | | | [place] [address] | + + + | Home Phone [...] [place] | | | | | [address] | | + + + + + Care Team Providers + +------+ + | Care Cashier Wrapper Name | Role | Phone | + +------+ + | Davis Ivan MD | PCP | | + +------+ + Encounter Details +--------+ + + + + | Date | Type | Department | Care Team | Description | +--------+ + + + + | 10/11/ | Hospital | [facility] | Adelita Lu MD | Recurrent squamous | | 2015 | Encounter | MED CTR MEDICAL | [address] [facility] | cell carcinoma of | | | | ONCOLOGY CLINIC [address] | [place], [place] | lung, right (HCC) | | | | [facility] | [address] | (Primary Dx); | | | | [place] [address] | [phone] | Pulmonary nodules; | | | | [phone] | | Squamous cell lung | | | | | | cancer, [...] + + + | Blood Pressure | 124/72 | 10/11/2014 1:20 PM | | | | | PDT | | + + + + + | Pulse | 74 | 10/11/2014 1:20 PM | | | | | PDT | | + + + + + | Temperature | 36.6 C (97.9 F) | 10/11/2014 1:20 PM | | | | | PDT | | + + + + + | Respiratory Rate | - | - | | + + + + + | Oxygen Saturation | 95% | 10/11/2014 1:20 PM | | | | | PDT | | + + + + + | Inhaled Oxygen | - | - | | | Concentration | | | | + + + + + | Weight | 67.1 kg (148 lb) | 10/11/2014 1:20 PM | | | | | PDT | | + + + + + | Height | - | - | | + + + + + | Body Mass Index | 27.07 | 10/11/2014 11:56 AM | | | [...] 2 | 08/22/19 | | | (TESHERO PERLES) | mouth 3 times daily | [...] tablet by | 60 | 1 | 04/22/20 | | | (ZANTAC) 150 mg | [...] encounter Progress Notes Adelita Lu MD - 10/11/2014 4:39 PM PDT .ws Hem-Onc Progress Note [facility] Patient name:Thea Carmona : 1945 Age: 69 y.o. CSN: [id number] Date of Service: 10/11/2014 Identifying Statement: Thea Carmona is a 69 y.o. female from [facility] with clinical stage II, non-small cell lung [...] lewis 2.CT-guided biopsy by interventional radiology at [facility] of the right lung massshows squamous cell [...] by Dr. Mace , thoracic surgeon at [facility] for consideration of broncho scopy, [...] mal ignant cells. Keratinizing squamous cell carcinoma 8. Completed concurrent chemoradiation with weekly carboplatin and Taxol in August 2014 9. Admitted to [facility] on September 27, 2014 for right-sided chest pain seconda ry to acute bronchitis Chief Complaint/HPI: Her for regular follow-up to discuss continuation of adjuvant systemic chemotherapy after completion of concurrent chemoradiation for stage II lung cancer REVIEW OF SYSTEMS Constitutional:Pt reports fatigue. Denies high fevers, shaking chills, anorexia, nausea, vo miting or weight loss. Appetite without changes. Pt reports ongoing night sweats and poor ap petite. Ear, Nose, Mouth, Throat: Denies odynophagia, dysphagia, or tinnitus. Cardiovascular: Pt report s shortness of breath, dyspnea on exertion. Denies chest pain, pa lpitations or orthopnea. Respiratory: Pt reports ongoing cough with occasional hemoptysis or clear/green sputum. Gastrointestinal: Pt reports intermittent abdominal pain, denies pain at this time. Denies constipation, diarrhea, melena, or bright red blood per rectum. Genitourinary: Denies hematuria or dysuria. Musculoskeletal: Pt reports generalized joint pain or tenderness. Neurologic: Denies headache, visual changes, or numbness/tingling of the extremities. Endocrine: Pt reports edema in the left ankle. Pt reports heat/cold intolerance. Hematologic: Denies spontaneous bruising or bleeding.Pt reports bruising easily. Integumentary: Denies rash, wounds or other skin concerns. Pain: Pt has pain in generalized joint pain mostly lower back and neck, pt rates the pain a t 6 with pain medication and with out she rates the pain at a 10, this is on a pain scale fr om 0-10. Note: Pt is here for follow up and labs. My chart:declined Past Medical History: Past Medical History Diagnosis Date COPD (chronic obstructive pulmonary disease) ([facility]) on albuterol Spondylolisthesis of cervical region Spinal stenosis has tried cortisone injections Osteoporosis Depression Pneumonia 2009 hospitalized 5 days Rheumatoid arthritis(714.0) ([facility]) [facility] Hyperlipidemia on simvastatin Hypertension on clonidine and lisinopril Hypothyroidism GERD (gastroesophageal reflux disease) Stroke ([facility]) 2007 Stroke ([facility]) 2008 Squamous cell carcinoma of lung ([facility]) 07/2013 right lower lobe Sputum culture positive for Scopulariopsis species Recurrent squamous cell carcinoma of lung ([facility]) 07/11/[address] and RUL nodule MARCE (obstructive sleep apnea) AHI 11.6 no CPAP Full dentures upper & lower Upper GI bleed 06/[address] [facility] Allergies: No Known Allergies Medications : Patient's [...] mg by mouth Daily. RESPIRATORY THERAPY SUPPLIES [email or web address] ResMed S9 auto CPAP 5-9 cm H2O. Heater and Humidifier . All necessary supplies. AHI 11.6. Diagnosis Code(s)327.23, also has co morbid hypertension , history of stroke. Length of Need 99 months. Please send order to [facility]. RESPIRATORY THERAPY SUPPLIES [facility] Respironics autotitrating CPAP at 5-9 cm H2O [...] (97.9 F)] 36.6 C (97.9 F) Pulse: [74-79] 74 Resp: [16] 16 BP: (124-126)/(68-72) 124/72 mmHg Gen.: Performance status ECoG 1 . Well nourished, appears well not in apparent distress.. Chest: Clear to auscultation. Bilateral wheezes present Extremities: Left lower extremity edema present LABORATORY DATA: Recent Results (from the past 24 hour(s)) CBC WITH DIFFERENTIAL Result Value Ref Range WBC 11.2 (*) 4.0-11.0 K/uL RBC 3.40 (*) 3.70-5.20 M/uL Hgb 11.0 (*) 11.5-16.0 g/dL Hct 34.8 34.0-47.0 % MCV 102.5 (*) 83.0-101.0 fL MCH 32.3 28.0-35.0 pg MCHC 31.5 (*) 32.0-36.0 g/dL RDW 24.7 (*) <15.0 % Platelet Count 242 140-440 K/uL MPV 7.8 % Neutrophils 87.9 (*) 45.0-82.0 % % Lymphocytes 4.6 (*) 20.0-45.0 % % Monocytes 6.4 4.0-12.0 % % Eosinophils 0.7 0.0-5.0 % % Basophils 0.4 0.0-1.0 % Absolute Neutrophils 9.90 (*) 1.80-8.50 K/uL Absolute Lymphocytes 0.50 (*) 0.60-3.20 K/uL Absolute Monocytes 0.70 0.00-1.00 K/uL Absolute Eosinophils 0.10 0.00-0.40 K/uL Absolute Basophils 0.00 0.00-0.10 K/uL COMPREHENSIVE METABOLIC PANEL Result Value Ref Range NA 138 136-149 mmol/L K 3.9 3.5-5.1 mmol/L CL 106 98-109 mmol/L CO2 27 24-31 mmol/L ANION GAP 5 3-16 mmol/L GLUCOSE 93 70-109 mg/dL BUN 12 7-18 mg/dL Creatinine, Serum/Plasma 0.77 0.60-1.30 mg/dL eGFR if not >60 >=60 mL/min/1.73m2 CALCIUM 9.0 8.3-10.5 mg/dL ALBUMIN 3.2 3.2-5.0 g/dL BILIRUBIN TOTAL 0.5 0.1-1.5 mg/dL Total protein 6.3 6.0-7.8 g/dL AST 24 10-42 U/L ALT 20 6-45 U/L ALK PHOS 64 40-110 U/L GLOBULIN 3.1 Albumin/Globulin ratio 1.0 BUN/CREA 15.6 BUN Result Value Ref Range BUN 12 7-18 mg/dL CREATININE Result Value Ref Range Creatinine, Serum/Plasma 0.77 0.60-1.30 mg/dL eGFR if not >60 >=60 mL/min/1.73m2 imaging: CT scan was obtained from [facility] and results were reviewed which showed right-sided hilar adenopathy which was present at the time of recurrence in 2014 IMPRESSION: Stage II squamous non-small cell right lung cancer status post lobectomy August 2013 2. Recurrence of non-small cell lung cancer in June 2014 3. Comorbidities with rheumatoid arthritis on methotrexate, history of stroke in 2005 and 2006 on aspirin and Plavix 4. Chronic unresolving cough PLAN: patient completed concurrent chemoradiation in August 2013 .treatment was complicated by neutropenia which has resolved She also continues to have a chronic cough which is relieved with the liquid hydrocodone She is also following up with pulmonary medicine doctor barber As patient's performance status is gradually recovering after the acute hospitalization sec ondary to acute bronchitis after waiting pros and cons of continuation of systemic chemother apy and we decided to postpone initiating systemic chemotherapy at this time .she will follo w up in the cancer center in a month for a comprehensive evaluation and depending upon her p erformance status will proceed to get 2 additional rounds of systemic full dose chemotherapy with carboplatin AUC of 5 and Taxol Total time face to face discussion with [...] substitutions have occurred. Tess Arguello CMA - 10/11/2014 1:24 PM PDTREVIEW OF SYSTEMS Constitutional:Pt reports fatigue. Denies high fevers, shaking chills, anorexia, nausea, vo miting or weight loss. Appetite without changes. Pt reports ongoing night sweats and poor ap petite. Ear, Nose, Mouth, Throat: Denies odynophagia, dysphagia, or tinnitus. Cardiovascular: Pt report s shortness of breath, dyspnea on exertion. Denies chest pain, pa lpitations or orthopnea. Respiratory: Pt reports ongoing cough with occasional hemoptysis or clear/green sputum. Gastrointestinal: Pt reports intermittent abdominal pain, denies pain at this time. Denies constipation, diarrhea, melena, or bright red blood per rectum. Genitourinary: Denies hematuria or dysuria. Musculoskeletal: Pt reports generalized joint pain or tenderness. Neurologic: Denies headache, visual changes, or numbness/tingling of the extremities. Endocrine: Pt reports edema in the left ankle. Pt reports heat/cold intolerance. Hematologic: Denies spontaneous bruising or bleeding.Pt reports bruising easily. Integumentary: Denies rash, wounds or other skin concerns. Pain: Pt has pain in generalized joint pain mostly lower back and neck, pt rates the pain a t 6 with pain medication and with out she rates the pain at a 10, this is on a pain scale fr om 0-10. Note: Pt is here for follow up and labs. My chart: documented in this encounter Plan of Treatment [...] [id number] | | | | | | [phone] | | | | | | | | +--------+ + + + + | 06/08/ | Office | Physical Medicine | Rocky Santos, | | | 2019 | Visit | and Rehabilitation | MD [address] | | | | | | [place] | | | | | | [address] | | | | | | | | +--------+ + + + + | 06/16/ | Appointment | Pulmonology | Eveline Jaffe | | 2019 | | | MD [address] | | | | | | [address] | | | | | | [place] [address] | | | | | | [phone] | | | | | | | | +--------+ + + + + | 06/16/ | Office | Pulmonology | Eveline Jaffe | | | 2019 | Visit | | MD Raul [address] | | | | | | [address] | | | | | | [place] [address] | | | | | | [phone] | | | | | | | | +--------+ + + + + | 08/24/ | Office | Cardiology | Anisha Lopez DO | | | 2019 | Visit | | [address] | | | | | | [place] | | | | | | [address] | | | | | | | | +--------+ + + + + documented as of this encounter Results Comprehensive Metabolic Panel (10/11/2014 11:14 AM PDT) [...] | 0.77 | 0.60 - 1.30 | [facility] | | | | | mg/dL | [facility] | | | | | | [facility] | | | | | | CENTER - | | | | | | LABORATORY | | + + + + + + | eGFR if not | >60Comment: GLOMERULAR | >=60 | [facility] | | | | FILTRATION | mL/min/1.73m2 | [facility] | | | [facility] | RATE,ESTIMATED | | MEDICAL | | | | mL/min/1.26t4Qghz than | | CENTER - | | [...] | bulin Ratio | | | [facility] | [...] + | [facility] | [address] | [place] | [phone] | | [facility] | | [address] | | | - LABORATORY | | [...] | | | Eosinophils | | | [facility] | | [...] | Eosinophils | | K/uL | [facility] | | | | | | MEDICAL | | | | | | CENTER - | | | | | | LABORATORY | | + + + + + + | Absolute | 0.00 | 0.00 - 0.10 | [facility] | | | Basophils | | K/uL | [facility] | [...] ST. | [address] | [place], [place] | [phone] | | [facility] | | [address] | | | - LABORATORY | | | | + + + + + documented in this encounter Visit Diagnoses + + | Diagnosis | + + | Recurrent squamous cell carcinoma of lung, right (HCC) - Primary | + + | Pulmonary nodules Other nonspecific abnormal finding of lung field | + + | Squamous cell lung cancer, unspecified laterality (HCC) | + + documented in this encounter"
--- OUTSIDE RECORDS SUMMARY | ~2019-05-05 | XMS | Encounter Summary ---
Demographics + + + | Address | [address] | | | [place] [address] | + + + | Home Phone [...] [place] | | | | | [address] | | + + + + + Care Team Providers + +------+ + | Care Television Anchor Name | Role | Phone | + +------+ + | Davis Ivan MD | PCP | | + +------+ + Encounter Details +--------+ + + + + | Date | Type | Department | Care Team | Description | +--------+ + + + + | 11/11/ | Hospital | [facility] | Conversion | Pain | | 2013 | Encounter | CONVERSION [address] | Transaction, | | | | | [address] | Provider Unknown | | | | | [place] | [phone] | | | | | [address] | | | | | | [phone] | | | +--------+ + + + [...] | | | | | [place] [address] | | | | | | [phone] | | | | | | | | +--------+ + + + + | 06/08/ | Office | Physical Medicine | Rocky Santos, | | | 2019 | Visit | and Rehabilitation | [address] | | | | | | [place] | | | | | | [address] | | | | | | | | +--------+ + + + + | 06/16/ | Appointment | Pulmonology | Eveline Jaffe | | | 2019 | | | MD [address] | | | | | | [address] [place] | | | | | | [place] [address] | | | | | | [phone] | | | | | | | | +--------+ + + + + | 06/16/ | Office | Pulmonology | Eveline Jaffe | | | 2019 | Visit | | MD [address] | | | | | | [address] | | | | | | [place] [address] | | | | | | [phone] | | | | | | | | +--------+ + + + + | 08/24/ | Office | Cardiology | Anisha Lopez DO | | | 2019 | Visit | | [address] | | | | | | [place] | | | | | | [address] | | | | | | | [...]
--- OUTSIDE RECORDS SUMMARY | ~2019-05-05 | XMS | Encounter Summary ---
Demographics + + + | Address | [address] | | | [place] [address] | + + + | Home Phone [...] [place] | | | | | [address] | | + + + + + Care Team Providers + +------+ + | Care Warehouse Laborer Name | Role | Phone | [...] + | 11/09/ | Office | [facility] | Giuliano Padilla, | Postop check | | 2018 | Visit | ORTHOPEDIC SURGERY | [address] | (Primary Dx) | | | | [address] [facility] | [place] | | | | | [place] | [address] | | | | | [address] | | | | | | [phone] | | | +--------+---------+ + + + [...] Progress Notes Giuliano Padilla MD - 11/09/2017 1:45 PM PDTPatient returns follow-up right first [facility] arth roplasty She is doing amazingly well Her wound is healed and sutures are removed and Steri-Strips applied She has excellent range of motion and mobility of her thumb We placed her in a removable brace And I will see her in 4 weeks 7:2 8 PM PDTdocumented in this encounter Plan of Treatment +--------+ + + + + | Date | Type | Specialty | Care Team | Description | +--------+ + + + + | 05/30/ | Office | Rheumatology | Santosh Sumner, | | | 2018 | Visit | | [address] | | | | | | [facility] | | | | | | [place] [address] | | | | | | [phone] | | | | | | | | +--------+ + + + + | 06/08/ | Office | Physical Medicine | Rocky Santos, | | | 2019 | Visit | and Rehabilitation | MD [address] | | | | | | [place] | | | | | | [address] | | | | | | | | +--------+ + + + + | 06/16/ | Appointment | Pulmonology | Eveline Jaffe | | | 2019 | | | MD [address] | | | | | | [address] | | | | | | [place] [address] | | | | | | [phone] | | | | | | | | +--------+ + + + + | 06/16/ | Office | Pulmonology | Eveline Jaffe | | | 2019 | Visit | | MD [address] | | | | | | [address] | | | | | | [place] [address] | | | | | | [phone] | | | | | | | | +--------+ + + + + | 08/24/ | Office | Cardiology | Anisha Lopez DO | | | 2019 | Visit | | [address] | | | | | | [place], [place] | | | | | | [address] | | | | | | | | +--------+ + + + + documented as of this encounter Visit Diagnoses + + | Diagnosis | + + | Postop check - Primary Follow-up examination, following unspecified surgery | + + documented in this encounter"
--- OUTSIDE RECORDS SUMMARY | ~2019-05-05 | XMS | Encounter Summary ---
Demographics + + + | Address | [address] | | | [place] [address] | + + + | Home Phone | | + + + | Preferred Language | Unknown | + + + | Marital Status | | + + + | Evangelical Affiliation | Unknown | + + + | Race | Unknown | + + + | Ethnic Group | Unknown | + + + Author + + + | Author | [facility] | | | and [place] | + + + | Organization | [facility] | | [...] [place] | | | | | [address] | | + + + + + Care Team Providers + +------+ + | Care Hand Tacker Name | Role | Phone | + [...] | | | | pulmonary | [address] [facility] [facility] [address] | [address] | | | | | disease, | [address] | [place] | | | | | unspecified | [place], | [place] | | | | | ([facility]) | [place] | [address] Phone: | | | | | Procedures | [address] | [phone] | | | | | FU | Phone: | Fax: | | | | | | [phone] | [phone] | | | | | | Fax: | | | | | | | [phone] | | +--------+--------+ + + + + Encounter Details +--------+---------+ + + + | Date | Type | Department | Care Team | Description | +--------+---------+ + + + | 11/19/ | Office | [facility] | Gurmeet Vargas | Chronic obstructive | | 2018 | Visit | PULMONARY [address] | MD [address] | bronchitis (HCC) | | | | [place], | [place] | (Primary Dx); | | | | [place] [address] | [place] [address] | History of lung | | | | [phone] | [phone] | cancer; Chronic | | | | [...] | Blood Pressure | 118/62 | 11/19/2017 1:52 PM | | | | | PDT | | + + + + + | Pulse | 90 | 11/19/2017 1:52 PM | | | | | PDT | | + + + + + | Temperature | 36.8 C (98.3 F) | 11/19/2017 1:52 PM | | | | | PDT | | + + + + + | Respiratory Rate | - | - | | + + + + + | Oxygen Saturation | 97% | 11/19/2017 1:52 PM | | | | | PDT | | + + + + + | Inhaled Oxygen | - | - | | | Concentration | | | | + + + + + | Weight | 58.6 kg (129 lb 3 | 11/19/2017 1:52 PM | | | | oz) | PDT | | + + + + + | Height | 157.5 cm (5' 2") | 11/19/2017 1:52 PM | | | | | PDT | | + + + + + | Body Mass Index | 23.63 | 11/19/2017 1:52 PM | | | | | PDT | | + + + + + documented in this encounter Progress Notes Gurmeet Vargas MD - 11/19/2017 2:00 PM PDTAnnual follow-up of 72-year-old ex-sm brien with chronic obstructive bronchitis and history of treated lung cancer. She also has d iarrhea and cannot sleep For her chronic obstructive bronchitis, she takes Breo, a combination of long-acting albute rol and inhaled steroid, and it works to prevent any wheezing and chronic productive cough. She also uses Spiriva respimat once daily. She did have influenza and pneumonia and stayed in the hospital 11 days at [facility] in [place] in June 2017, she says. After dave [...] She tells me she sees him at [facility], so it is not in our medical [...] | 2018 | Visit | | [address] | | | | | | [facility] | | | | | | [place] [address] | | | | | | [phone] | | | | | | | | +--------+ + + + + | 06/08/ | Office | Physical Medicine | Rocky Santos, | | | 2019 | Visit | and Rehabilitation | MD [address] | | | | | | [place] | | | | | | [address] | | | | | | | | +--------+ + + + + | 06/16/ | Appointment | Pulmonology | Eveline Jaffe | | 2019 | | | MD [address] | | | | | | [address] | | | | | | [place] [address] | | | | | | [phone] | | | | | | | | +--------+ + + + + | 06/16/ | Office | Pulmonology | Eveline Jaffe | | 2019 | Visit | | MD [address] | | | | | | [address] | | | | | | [place] [address] | | | | | | [phone] | | | | | | | | +--------+ + + + + | 08/24/ | Office | Cardiology | Anisha Lopez DO | | | 2019 | Visit | | [address] | | | | | | [place] | | | | | | [address] | | | | | | | | +--------+ + + + + documented as of this encounter Visit Diagnoses + + | Diagnosis | + + | Chronic obstructive bronchitis (HCC) - Primary Obstructive chronic bronchitis without | | exacerbation | + + | History of lung cancer Personal history of malignant neoplasm of bronchus and lung | + + | Chronic diarrhea Diarrhea | + + | Sleep disturbance Sleep disturbance, unspecified | + + documented in this encounter
--- OUTSIDE RECORDS SUMMARY | ~2019-05-05 | XMS | Encounter Summary ---
Demographics + + + | Address | [address] | | | [place] [address] | + + + | Home Phone [...] [place] | | | | | [address] | | + + + + + Care Team Providers + +------+ + | Care Quantitative Strategy Analyst Name | Role | Phone | + +------+ + | Caitlin Chino MD | PCP | | + +------+ + Encounter Details +--------+ + + + + | Date | Type | Department | Care Team | Description | +--------+ + + + + | 04/18/ | Abstract | [facility] | Provider, | | | 2019 | | PHYSIATRY [address] | [address] | | | | | [place], | [place] | | | | | [place] [address] | [place] [address] | | | | | [phone] | | | +--------+ + + + [...] | | | | | [place] [address] | | | | | | [phone] | | | | | | | | +--------+ + + + + | 06/08/ | Office | Physical Medicine | Rocky Santos, | | | 2019 | Visit | and Rehabilitation | [address] | | | | | | [place] | | | | | | [address] | | | | | | | | +--------+ + + + + | 06/16/ | Appointment | Pulmonology | Eveline Jaffe | | 2019 | | | MD [address] | | | | | | [address] | | | | | | [place] [address] | | | | | | [phone] | | | | | | | | +--------+ + + + + | 06/16/ | Office | Pulmonology | Eveline Jaffe | | | 2019 | Visit | | MD [address] | | | | | | [place] | | | | | | [place] [address] | | | | | | [phone] | | | | | | | | +--------+ + + + + | 08/24/ | Office | Cardiology | Anisha Lopez DO | | | 2019 | Visit | | [address] | | | | | | [place] | | | | | | [address] | | | | | | | | +--------+ + + + + documented as of this encounter Visit Diagnoses Not on filedocumented in this encounter"
--- OUTSIDE RECORDS SUMMARY | ~2019-05-05 | XMS | Encounter Summary ---
Demographics + + + | Address | [address] | | | [place] [address] | + + + | Home Phone [...] [place] | | | | | [address] | | + + + + + Care Team Providers + +------+ + | Care Drier Operator Name | Role | Phone | + +------+ + | Davis Ivan MD | PCP | | + +------+ + Reason for Visit + + + | Reason | Comments | + + + | Appointment | | + + + Encounter Details +--------+ + + + + | Date | Type | Department | Care Team | Description | +--------+ + + + + | 01/29/ | Telephone | [facility] | Claudia, | Appointment | | 2015 | | PULMONARY [address] | Ayana Looney MD | | | | | [place], | | | | | | [place] [address] | | | | | | [phone] | | | +--------+ + + + [...] | | | | | [place] [address] | | | | | | [phone] | | | | | | | | +--------+ + + + + | 06/08/ | Office | Physical Medicine | Rocky Santos, | | | 2019 | Visit | and Rehabilitation | MD [address] | | | | | | [place] | | | | | | [address] | | | | | | | | +--------+ + + + + | 06/16/ | Appointment | Pulmonology | Eveline Jaffe | | 2019 | | | MD [address] | | | | | | [address] | | | | | | [place] [address] | | | | | | [phone] | | | | | | | | +--------+ + + + + | 06/16/ | Office | Pulmonology | Eveline Jaffe | | | 2019 | Visit | | MD [address] | | | | | | [place] | | | | | | [place] [address] | | | | | | [phone] | | | | | | | | +--------+ + + + + | 08/24/ | Office | Cardiology | Anisha Lopez DO | | | 2019 | Visit | | [address] | | | | | | [place] | | | | | | [phone] | | | | | | | | +--------+ + + + + documented as of this encounter Visit Diagnoses Not on filedocumented in this encounter"
--- OUTSIDE RECORDS SUMMARY | ~2019-05-05 | XMS | Encounter Summary ---
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 | Role | Phone | [...] + + | 09/01/ | Hospital | [facility] | Kaden Rock | Acute infective | | 2018 - | Encounter | [facility] | MD German [address] | exacerbation of | | | | [address] | [address] [place] | chronic obstructive | | 09/04/ | | [place] [address] | [place] [address] | airway disease | | 2019 | | [phone] | [phone] | (HCC); | | | | | | Hyperlipidemia, | | | | | | unspecified | | | | | | hyperlipidemia type; | | | | | | Recurrent squamous | | | | | | cell carcinoma of | | | | | | right lung (HCC); | | | | | | Radiation | | | | | | pneumonitis (HCC); | | | | | | Chronic obstructive | | | | | | bronchitis with | | | | | | pulmonary emphysema | | | | | | (HCC); Rheumatoid | | | | | | arthritis, involving | | | | | | unspecified site, | | | | | | unspecified | | | | | | rheumatoid factor | | | | | | presence (HCC); | | | | | | Pneumonia of right | | | | | | lower lobe due to | | | | | | infectious organism | | | | | | (HCC); COPD | | | | | | exacerbation (HCC); | | | | | | History of pulmonary | | | | | | embolism; Squamous | | | | | | cell carcinoma of | | | | | | right lung (HCC); | | | | | | Anxiety; Depression, | | | | | | unspecified | | | | | | depression type; | | | | | | Hypothyroidism, | | | | | | unspecified type; | | | | | | Gastroesophageal | | | | | | reflux disease, | | | | | | esophagitis presence | | | | | | not specified; | | | | | | Swelling of lower | | | | | | extremity | +--------+ + + + + Social [...] + + + | Blood Pressure | 145/65 | 09/04/2018 7:23 AM | | | | | PDT | | + + + + + | Pulse | 80 | 09/04/2018 12:52 PM | | | | | PDT | | + + + + + | Temperature | 36.4 C (97.5 F) | 09/04/2018 7:23 AM | | | | | PDT | | + + + + + | Respiratory Rate | 16 | 09/04/2018 12:52 PM | | | | | PDT | | + + + + + | Oxygen Saturation | 93% | 09/04/2018 12:52 PM | | | | | PDT | | + + + + + | Inhaled Oxygen | - | - | | | Concentration | | | | + + + + + | Weight | 71.8 kg (158 lb 4.6 | 09/01/2018 7:56 PM | | | | oz) | PDT | | + + + + + | Height | 157.5 cm (5' 2") | 09/01/2018 7:56 PM | | | | | PDT | | + + + + + | Body Mass Index | 28.95 | 09/01/2018 7:56 PM | | | | | PDT [...] documented as of this encounter Discharge Summaries Teri Rodriguez MD - 09/04/2018 1:43 PM PDTFormatting of this note might be differe nt from the original. HOSPITALIST DISCHARGE SUMMARY Admit date: 09/01/2018 17:50 Discharge date: 09/04/2018 13:43 Admitting Physician: Kaden Rock MD Discharging Physician: Teri Rodriguez MD Primary Care Provider: Caitlin Chino MD FINAL DIAGNOSES: Active Hospital Problems Diagnosis *Pneumonia of right lower lobe due to infectious organism Acute infective exacerbation of chronic obstructive airway disease Radiation pneumonitis Recurrent squamous cell carcinoma of lung Hypertension Hyperlipidemia Rheumatoid arthritis(714.0) Resolved Hospital Problems Diagnosis Date Noted Date Resolved No resolved problems to display. REASON FOR ADMISSION: No chief complaint on file. HOSPITAL COURSE: History of the presenting illness : Thea Carmona is a 73 y.o.female was admi tted on 09/01/2018 with a history oflocally recurrent and regionally metastatic squamous marilou l lung cancer (s/p chemo/radiation, right lower lobectomy, in remission on Afatinib 30 mg, f ollowed by Dr Park) COPD, RA (on MTX and Prednisone), Anxiety/Depression, h/o PE, HLD , Hypothyroidism and GERd, recent admission at [facility] for COPD exacerbation/Hypoxia, treated with nebs and IV steroids, no abx. Discharged 08/22 on steroid taper (60 mg X 3 day s, 40 mg X 3 days), symptoms worsening since discharge with tachypnea and SOB. Pt saw PCP 08/30 and her prednisone taper was prolonged (currenltly on 3rd day of 40 mg X 5 days and so on) . Pt was seen by Dr. Gurmeet Vargas in clinic and was directly admitted for RLL PNA. CXR tod ay showed hazy opacities in right mid to lower lobe (appear denser than CXR at [facility] . Pt also had CT abdomen/pelvis at [facility] for rectal sheath hematoma which showed nodu lar opacities in right lower lobe. Given immunocompromised state, Dr. Vargas concerned for PCP PNA. Pt currently reports productive cough with greenish sputum. No fever/chills. No Si ck contacts. For details please refer to the H&P and daily progress notes and consults. Patient's acute hospital medical problems were briefly addressed as follow: 1. Pneumonia of right lower lobe due to infectious organism : I am not certain she has makayla r Pneumonia and her CT scan first non contrast did not showed any and I proceeded to do the CTA to rule out PE ( thought she might have Thromboembolism from malignancy and not respondi ng to coumadin ). All the scans have cleared without any sign of infection but old scar. Her non contrast CT has concern for tumor recurrence and I spoke to and he told me that her PET scan was negative and after this second CT with contrast did not show any tu mor growth.She was watched overnight and Discharged home 2. Rheumatoid arthritis(714.0) : On MTX and stable and her symptoms of numbness could be du e to cervical radiculopathy 3. Hyperlipidemia : on statin and continue 4. Hypertension : Stable and not taking any meds now 5. Recurrent squamous cell carcinoma of lung : Her Oral Chemo may cause opportunistic infec tion and will check the CT scan 6. Radiation pneumonitis : Noted in the past but had done well and will check the CT 7. Acute infective exacerbation of chronic obstructive airway disease :She is more stable and not sure the cause and will check the CT 8. DVT Prophylaxis : Coumadin with INR goal 2-3 9. Code Status : Full Code. PROCEDURES : None CONSULTATIONS: None IMAGING PERFORMED: Ct Chest Wo Contrast Result Date: 09/03/2018 CT CHEST WITHOUT CONTRAST CLINICAL INFORMATION: Follow up ill-defined hazy opacities at the right mid to lower lung. COMPARISON: XR CHEST PA AND LATERAL (09/01/2018); CT CHEST WO CONTRA ST (11/30/2015); CT CHEST W CONTRAST (03/28/2015); XR CHEST PA AND LATERAL (10/22/2017); PROCED URE: Axial images through the chest. Multiplanar reconstructions. At least one of the follow ing CT dose optimization techniques were used: Automated exposure control; Adjustment of mA and/or kV according to patient size; Use of iterative reconstruction technique. FINDINGS: Co mpared with most recent CT of 11/30/2015, enlarging right infrahilar soft tissue mass, measuri ng approximately 4.8 x 2.6 x 3.1 cm (reference axial image 50 series 2, and coronal image 40 series 602). 2 mm nodule in the left major fissure which is stable from 2016. Somewhat exte nsive thickening is seen in the superior segment of the right lower lobe with worsening soft tissue/mass like opacification which extends to the pleural surface. This mass like soft ti ssue thickening encases the right basilar bronchi causing areas of luminal irregularity. Bro nchi are thought to remain patent. Background of extensive coronary artery calcifications. H eart is normal in size. No evidence of mediastinal lymphadenopathy. There is suggestion of a few enlarged right hilar lymph nodes. Aorta and pulmonary arteries are normal in caliber. N o evidence of axillary adenopathy. Left chest wall antonieta catheter tip terminates in the supe rior vena cava. Hepatic steatosis. No suspicious or acute abdominal findings. Diffusely hete rogeneous appearance of the bone marrow which is unchanged since 2016. Stable densely sclero tic foci involving the posterior left ninth rib. No new suspicious lytic or blastic lesion. Chronic superior endplate compression deformity fracture of L1 which is thought to be mildly worsened since 11/06/2016. Superior endplate compression deformity fracture of T7. Grade 1 an terolisthesis of T1 over T2, chronic. Severe degenerative disease of the level. IMPRESSION- 1. Exam somewhat limited without IV contrast. Compared with most recent CT of 11/30/2015, enl arging right infrahilar soft tissue mass with background of right infrahilar/right lower lob e bandlike scarring/soft tissue thickening which extends to the lung periphery, measuring ap proximately 4.8 x 2.6 x 3.1 cm. Appearance is suspicious for lung cancer recurrence with lym phangitic component considered. 2. Mild superior endplate compression deformity of L1 verteb ra, new compared with 2016 exam. This was questionably visualized in 2017 but appears slight ly worsened since that time. 3. Chronic superior endplate compression deformity fracture at T7. 4. Similar somewhat extensive patchy and heterogeneous appearance of the bone marrow lik inge related to posttreatment changes. No convincingly new suspicious lytic or blastic lesion on today's examination. A preliminary report was sent without significant discrepancy. Dict ated and Signed by: Yovanny Chin MD Electronically signed: 09/03/2018 10:[address] Angiogram Pulmonary Result Date: 09/03/2018 CT PULMONARY ANGIOGRAM 09/03/2018 3:33 PM CLINICAL HISTORY: SOB with malignancy and suspect ed PE while on Coumadin COMPARISON: Unenhanced CT from the previous day and more remote imaging TECHNIQUE: Axial images are performed through the chest following the uneventful in travenous administration of 55 mL Omnipaque-350 contrast, with timing of the contrast bolus optimized for opacification of the pulmonary arterial tree. Multiplanar reformations are als o performed. FINDINGS: The study is of good quality, and demonstrates no visible filling d efect in the pulmonary arterial tree to suggest the presence of thromboembolic disease. Leo cified plaque is again evident in the aorta and coronary arteries. The implanted left web design intern al jugular port catheter again terminates in the lower SVC. Changes of right lower lobectom y are again suggested. Geographic, bandlike opacity posteriorly in the mid to basilar right lung is similar in distribution but more confluent compared with imaging of November 2015. Gas -filled right middle lobe airways course through this region. No central airway occlusion i s evident although some wall thickening of the central right middle lobe airways is suggeste d at the hilum. No suspicious nodule or consolidation is evident elsewhere in the lungs. C hanges of centrilobular emphysema are again apparent. There is no pleural or pericardial ef fusion or pneumothorax. No pathologic lymph node enlargement is evident. ACDF hardware is p artially imaged. Mild depression superior T7 endplate is chronic, while mild to moderate de pression of the superior L1 endplate is age indeterminant. Severe degenerative disc disease and chronic anterolisthesis are present at T1-2, with foraminal predominant stenosis. Mild , generalized heterogeneity of the bones is chronic. The gallbladder is absent. A small rou nded hypodensity in the superior right kidney favors a cyst. Imaged upper abdomen is otherw ise unremarkable. IMPRESSION - 1. NO EVIDENCE OF PULMONARY EMBOLISM OR OTHER ACUTE INTRATH ORACIC DISEASE. 2. MORE CONFLUENT GEOGRAPHIC OPACITY IN THE POSTERIOR MID TO BASILAR RIGHT LUNG COMPARED WITH IMAGING OF NOVEMBER 2015, LIKELY REFLECTING AT LEAST A COMPONENT OF THERAPY R ELATED SCAR STATUS POST LOWER LOBECTOMY. CONSIDER INTERVAL CT SURVEILLANCE AND/OR PET. NO CONCLUSIVE ADENOPATHY OR OTHER POTENTIAL EVIDENCE OF RECURRENT MALIGNANCY IS APPARENT. 3. C ENTRILOBULAR EMPHYSEMA. Dictated and Signed by: Herminio Levi MD Electronically signed: 2018 4:33 PM LABORATORY 09/01/2018 19:28 09/02/2018 03:10 09/03/2018 05:31 WBC 10.7 10.3 10.8 RBC COUNT 4.09 3.85 3.40 (L) Hemoglobin 11.9 11.0 (L) 9.8 (L) Hct, Final 38.8 36.9 31.9 (L) MCV 94.9 95.8 93.8 MCH 29.1 28.6 28.8 MCHC 30.7 (L) 29.8 (L) 30.7 (L) RDW-SD 66.4 (H) 67.3 (H) 64.9 (H) RDW-CV 19.3 (H) 19.2 (H) 19.1 (H) Platelet Count 228 234 215 09/01/2018 19:28 09/02/2018 03:10 09/03/2018 05:31 Na 141 139 140 K 3.0 (L) 3.4 3.5 Chloride 107 104 108 (H) Carbon dioxide 27 29 27 Anion Gap 7 6 5 Glucose 80 165 (H) 93 BUN 19 17 18 Creatinine 0.91 0.92 1.02 BUN/Creatinin 20.9 18.5 17.6 Albumin 3.0 (L) Albumin/Globul 1.8 Total Protein 4.7 (L) EGFR 60 60 53 (L) Calcium 8.2 (L) 8.2 (L) 8.6 (L) ALK PHOS 45 (L) ALT (SGPT) 18 AST (SGOT) 12 LDH TOTAL 299 (H) Bilirubin Total 0.3 Globulin 1.7 (L) HOSPITAL COMPLICATIONS: None CONDITION ON DISCHARGE: Improved and stable PHYSICAL EXAMINATION: Vitals: 09/04/18 0510 09/04/18 0723 09/04/18 0805 09/04/18 1252 BP: 142/70 145/65 Pulse: 78 80 80 80 Resp: 17 18 16 16 Temp: 36.2 C (97.2 F) 36.4 C (97.5 F) TempSrc: Oral Oral SpO2: 94% 95% 94% 93% Weight: Height: PHYSICAL Exam : Gen Mary Anne - alert, cooperative and no distress Head - Normocephalic, without obvious abnormality, atraumatic Eyes - PERRL, conjunctiva/corneas clear, EOM's intact both eyes ENT - mucous membranes moist Neck - supple Lungs - unlabored breathing and poor movement with mild wheezes and rales Heart - normal rate, regular rhythm, normal S1, S2, no murmurs, rubs, clicks or gallops Abdomen - soft, non-tender, without masses or organomegaly Extremities - no peripheral edema, no clubbing or cyanosis Skin - no rashes, no ecchymoses Neurologic - Alert and oriented x 3. CN II-XII intact. ALLERIES ON DISCHARGE: Allergies Allergen Reactions Trazodone Hives Mirtazapine Other (See Comments) MEDICATIONS ON DISCHARGE: Discharge Medications Unchanged Medications Details albuterol-ipratropium 2.5-0.5 mg/3 mL Soln Take 3 mLs by nebulization 4 times daily. CASIE: 12 months Dx: J44.9 BREO ELLIPTA 100-25 mcg/puff inhaler Generic drug: fluticasone-vilanterol Inhale 1 puff into the lungs Daily. cholecalciferol 1,000 units capsule Take 2,000 Units by mouth Daily. aka: VITAMIN D-3 cyclobenzaprine 10 mg tablet Take 10 mg by mouth. aka: FLEXERIL DALIRESP 500 mcg tablet Generic drug: roflumilast Take 1 tablet by mouth. folic acid 1 mg tablet furosemide 20 mg tablet Take 20 mg by mouth Daily. aka: LASIX GILOTRIF 30 mg tablet Generic drug: afatinib Take 30 mg by mouth every morning (before breakfast). GUAIATUSSIN AC 100-10 mg/5 mL syrup Generic drug: guaiFENesin-codeine Take 5 mLs by mouth Daily as needed. HYDROcodone-acetaminophen 5-325 mg per tablet Take 1 tablet by mouth Daily as needed. aka: NORCO hydrocortisone 2.5% cream Apply 1 Application topically 2 times daily. levothyroxine 125 mcg tablet Take 125 mcg by mouth every morning (before breakfast). aka: SYNTHROID loperamide 2 mg capsule Take 2 mg by mouth as needed. aka: IMODIUM methotrexate 2.5 MG tablet take 6 tablets by mouth every week mirtazapine 15 MG tablet Take 15 mg by mouth nightly. aka: REMERON NARCAN 4 mg/nasal spray Generic drug: naloxone instill 1 spray in 1 NOSTRIL if needed for opioid overdose may re... (REFER TO PRESCRIPTI ON NOTES). Nebulizer Compressor Kit Use as directed with nebulizer medication. Dx: J43.1 CASIE: 99 months oxyCODONE 5 mg tablet Take 5 mg by mouth Daily as needed. aka: ROXICODONE pantoprazole 40 mg tablet Take 40 mg by mouth 2 times daily (before meals). aka: PROTONIX potassium chloride 20 mEq ER tablet Take 20 mEq by mouth Daily. aka: Klor-Con M20 predniSONE 5 mg tablet take 2 tablets by mouth every morning using 40 now then cutting back aka: DELTASONE raNITIdine 300 MG tablet take 1 tablet by mouth twice a day aka: ZANTAC simvastatin 40 mg tablet Take 40 mg by mouth nightly. aka: ZOCOR tiotropium 18 mcg inhalation capsule Inhale 18 mcg into the lungs Daily. aka: SPIRIVA venlafaxine 75 mg 24 hr tablet take 1 tablet by mouth every morning AT THE SAME TIME EACH DAY WITH FOOD aka: EFFEXOR XR warfarin 5 mg tablet Take 5 mg by mouth Daily. 5MG 3 times weekly and 4 1/2 tablet other days. aka: COUMADIN PHYSICAL ACTIVITY: As able DIET: Resume previous DISPOSITION: Home FOLLOW UP CARE: Follow up with PCP and Oncologist PENDING STUDIES: None CODE STATUS and GOALS OF CARE Code status at discharge:FULLCODE, Greater than 30 minutes was spent on discharge and coordination of post hospital care. Teri Rodriguez 09/04/18 13:43 documented in t his encounter Medications at Time of Discharge + [...] documented as of this encounter Progress Notes Chen Jackman RN - 09/04/2018 2:50 PM PDTDischarge patient to home. Discharge instructio ns giving in writing and verbally to patient and . Reviewed next appointments with jessica keenan. Questions answered and education giving. They verbalized understanding. 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 Bunny Rojas, PharmD - 09/04/2018 6:58 AM PDT WARFARIN PER PHARMACY PROTOCOL: Subjective/Objective: Thea Carmona is a 73 y.o. female admitted on 09/01/18 for HAP and is receiving warfa rin pt a for h.o PE. Patient has a past medical history of Acid reflux disease; Arthritis; COPD (chronic obstructive pulmonary disease) ([facility]); Depression; HONG (dyspnea on exertion); F ull dentures; GERD (gastroesophageal reflux disease); Hyperlipidemia; Hypertension; Hypothyr oidism; Obesity; MARCE (obstructive sleep apnea); Osteoporosis; Pneumonia (2008); Recurrent sq uamous cell carcinoma of lung ([facility]) (07/11/2014); Rheumatoid arthritis(714.0); Spinal stenosi s; Spondylolisthesis of cervical region; Sputum culture positive for Scopulariopsis species; Squamous cell carcinoma of lung ([facility]) (07/2013); Stroke ([facility]) (2006); Stroke ([facility]) (2007); a nd Upper GI bleed (06/2014). Goal INR: 2-3 ?Initiation ?chronic Home regimen: Per patient- 5mg on Mon, Wed, Fri and 2.5mg all other days of week Managed by:- Sensitizers:age and malignancy Drug Interactions: simvastatin (at home), vancomycin, cefepime, po steroid, bactrim 09/01 Recent Labs Lab 09/04/18 0602 09/03/18 0531 09/02/18 0310 09/01/18 1928 CREA -- 1.02 0.92 -- 0.91 HGB -- 9.8* 11.0* -- 11.9 HCT -- 31.9* 36.9 -- 38.8 PLT -- 215 234 -- 228 INR 2.8* 2.9* 3.1* < > -- < > = values in this interval not displayed. Date 09/01 09/02 09/03 09/04 Hgb 11.9 11 9.8 - Hct 38.8 36.9 31.9 - Platelets 228 234 215 - INR 3.5 3.1 2.9 2.8 Warfarin Dose hold 2 mg 2 mg 2.5 mg Assessment: The INR is slightly above the target range of 2-3 for prior PE , albeit dropping and war farin can be restarted Bactrim drug-drug interaction: Consider reducing warfarin dose by 10-20% = 22.5-20 mg/7d ays; was supratherapuetic on admit Plan: 1. Warfarin 2 mg po x1 and orders for 2.5 mg daily starting 09/04 2. Medication profile reviewed for potential drug-drug interactions 3. Labs in am: INR 4. 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 5. Pharmacist to follow daily Warfarin Dosing Nomogram Per P&T-approved Electronically signed by: Bunny Cruz PharmD 09/04/2018 7:27 Teri Craig MD - 09/03/2018 1:37 PM PDT HOSPITALIST PROGRESS NOTE Patient: Thea Carmona : 1945: Age: 73 y.o. MedRec: [id number] PCP: Caitlin Chino MD Admission date: 09/01/2018 Hospital day # : 2 Physician author: Teri Rodriguez MD Today: 09/03/2018 SUBJECTIVE/ OVERNIGHT EVENTS : She has no shortness of breath but has some hand numbness She seems to be more anxious than shortness of breath Denied any cough or chest pain ASSESSMENT/PLAN: 1. Pneumonia of right lower lobe due to infectious organism : I am not certain she has makayla r Pneumonia and her CT scan first non contrast has not showed any and I proceeded to do the CTA to rule out PE ( thought she might have Thromboembolism from malignancy and not respondi ng to coumadin ). All the scans have cleared without any sign of infection but old scar. Her non contrast CT has concern for tumor recurrence and I spoke to and he told me that her PET scan was negative and after this second CT with contrast did not show any tu mor growth. I will watch overnight and will likely Discharge her home in the morning. 2. Rheumatoid arthritis(714.0) : On MTX and stable and her symptoms of numbness could be du e to cervical radiculopathy 3. Hyperlipidemia : on statin and continue 4. Hypertension : Stable and not taking any meds now 5. Recurrent squamous cell carcinoma of lung : Her Oral Chemo may cause opportunistic infec tion and will check the CT scan 6. Radiation pneumonitis : Noted in the past but had done well and will check the CT 7. Acute infective exacerbation of chronic obstructive airway disease :She is more stable and not sure the cause and will check the CT 8. DVT Prophylaxis : Coumadin with INR goal 2-3 9. Code Status : Full Code. DISCHARGE PLAN: Discharge in 2-4 days. Discussed with patient ADMISSION HISTORY : History of the presenting illness : Thea Carmona is a 73 y.o. female was admitt ed on 09/01/2018 with a history of locally recurrent and regionally metastatic squamous cell l brianne cancer (s/p chemo/radiation, right lower lobectomy, in remission on Afatinib 30 mg, foll owed by Dr Park) COPD, RA (on MTX and Prednisone), Anxiety/Depression, h/o PE, HLD, H ypothyroidism and GERd, recent admission at [facility] for COPD exacerbation/Hypoxia, sathya ated with nebs and IV steroids, no abx. Discharged 08/22 on steroid taper (60 mg X 3 days, 4 0 mg X 3 days), symptoms worsening since discharge with tachypnea and SOB. Pt saw PCP 08/30 an d her prednisone taper was prolonged (currenltly on 3rd day of 40 mg X 5 days and so on). Pt was seen by Dr. Gurmeet Vargas in clinic and was directly admitted for RLL PNA. CXR today s howed hazy opacities in right mid to lower lobe (appear denser than CXR at [facility]. Pt also had CT abdomen/pelvis at [facility] for rectal sheath hematoma which showed nodular opacities in right lower lobe. Given immunocompromised state, Dr. Vargas concerned for PCP PNA. Pt currently reports productive cough with greenish sputum. No fever/chills. No Sick c ontacts. MEDICATIONS: afatinib 30 mg Oral QAM AC albuterol-ipratropium 3 mL Nebulization RT Q4H atorvaSTATin 20 mg Oral Nightly budesonide 0.5 mg Nebulization RT BID famotidine 20 mg Oral BID folic acid 1 mg Oral Daily furosemide 20 mg Oral Daily levothyroxine 125 mcg Oral QAM AC mirtazapine 15 mg Oral Nightly predniSONE 40 mg Oral Daily roflumilast 500 mcg Oral Nightly venlafaxine 75 mg Oral Daily with breakfast warfarin 2 mg Oral Once - Warfarin [START ON 09/04/2018] warfarin 2.5 mg Oral Daily - Warfarin warfarin per pharmacy Other Pharmacy Consult OBJECTIVE: Vitals: 09/03/18 0411 09/03/18 0750 09/03/18 0815 09/03/18 1336 BP: 121/66 133/62 Pulse: 79 76 75 75 Resp: 18 18 20 22 Temp: 36.5 C (97.7 F) 36.5 C (97.7 F) TempSrc: Oral Oral SpO2: 93% 93% 95% 94% Weight: Height: Weight: 71.8 kg (158 lb 4.6 oz) I/O last 3 completed shifts: In: 2277 [P.O.:1502; I.V.:120; IV Piggyback:655] Out: 2375 [Urine:2375] I/O this shift: In: 240 [P.O.:240] Out: 375 [Urine:375] PHYSICAL Exam : Gen Mary Anne - alert, cooperative and no distress Head - Normocephalic, without obvious abnormality, atraumatic Eyes - PERRL, conjunctiva/corneas clear, EOM's intact both eyes ENT - mucous membranes moist Neck - supple Lungs - unlabored breathing and poor movement with mild wheezes and rales Heart - normal rate, regular rhythm, normal S1, S2, no murmurs, rubs, clicks or gallops Abdomen - soft, non-tender, without masses or organomegaly Extremities - no peripheral edema, no clubbing or cyanosis Skin - no rashes, no ecchymoses Neurologic - Alert and oriented x 3. CN II-XII intact. LABS & IMAGING: reviewed Recent Results (from the past 48 hour(s)) Culture, Blood Collection Time: 09/01/18 19:27 Result Value Ref Range Culture No growth: Monitored continually by instrument for 5 days Culture, Blood Collection Time: 09/01/18 19:27 Result Value Ref Range Culture No growth: Monitored continually by instrument for 5 days CBC with Differential Collection Time: 09/01/18 19:28 Result Value Ref Range WBC 10.7 4.0 - 11.0 K/uL RBC 4.09 3.70 - 5.20 M/uL Hemoglobin 11.9 11.5 - 16.0 g/dL Hematocrit 38.8 34.0 - 47.0 % MCV 94.9 83.0 - 101.0 fL MCH 29.1 28.0 - 35.0 pg MCHC 30.7 (L) 32.0 - 36.0 g/dL RDW-CV 19.3 (H) <15.0 % RDW-SD 66.4 (H) 35.1 - 46.3 fL Platelet Count 228 140 - 440 K/uL MPV 8.9 6.5 - 12.4 fL % Neutrophils 80.0 45.0 - 82.0 % % Lymphocytes 9.9 (L) 20.0 - 45.0 % % Monocytes 7.8 4.0 - 12.0 % % Eosinophils 0.7 0.0 - 5.0 % % Basophils 0.3 0.0 - 1.0 % % Immature Granulocytes 1.3 (H) 0.0 - 0.4 % Absolute Neutrophils 8.55 (H) 1.80 - 8.50 K/uL Absolute Lymphocytes 1.06 0.60 - 3.20 K/uL Absolute Monocytes 0.83 0.00 - 1.00 K/uL Absolute Eosinophils 0.08 0.00 - 0.40 K/uL Absolute Basophils 0.03 0.00 - 0.10 K/uL Absolute Immature Granulocytes 0.14 (H) 0.00 - 0.03 K/uL % nRBC 0 0 - 2 per 100 WBCs Absolute nRBC 0.02 (H) 0.00 - 0.01 K/uL Basic Metabolic Panel Collection Time: 09/01/18 19:28 Result Value Ref Range Na 141 136 - 145 mmol/L K 3.0 (L) 3.4 - 5.1 mmol/L Cl 107 98 - 107 mmol/L CO2 27 20 - 31 mmol/L Anion Gap 7 3 - 16 mmol/L Glucose 80 60 - 106 mg/dL BUN 19 9 - 23 mg/dL Creatinine 0.91 0.55 - 1.02 mg/dL eGFR if not 60 >=60 mL/min/1.73m2 Ca 8.2 (L) 8.7 - 10.4 mg/dL BUN/Creatinine Ratio 20.9 Procalcitonin Collection Time: 09/01/18 19:28 Result Value Ref Range Procalcitonin <0.05 <=0.50 ng/mL Comment Lactate Dehydrogenase Collection Time: 09/01/18 19:28 Result Value Ref Range LDH TOTAL 299 (H) 120 - 246 U/L 1,3 Ocxo-H-Znabla Collection Time: 09/01/18 19:28 Result Value Ref Range Result <31 <80 pg/mL Culture, MRSA Collection Time: 09/01/18 20:46 Result Value Ref Range Culture Negative for MRSA by chromogenic agar method Protime INR Collection Time: 09/01/18 21:00 Result Value Ref Range Prothrombin Time 34.3 (H) 11.3 - 13.9 seconds INR 3.5 (H) 0.9 - 1.1 Basic Metabolic Panel Collection Time: 09/02/18 3:10 Result Value Ref Range Na 139 136 - 145 mmol/L K 3.4 3.4 - 5.1 mmol/L Cl 104 98 - 107 mmol/L CO2 29 20 - 31 mmol/L Anion Gap 6 3 - 16 mmol/L Glucose 165 (H) 60 - 106 mg/dL BUN 17 9 - 23 mg/dL Creatinine 0.92 0.55 - 1.02 mg/dL eGFR if not 60 >=60 mL/min/1.73m2 Ca 8.2 (L) 8.7 - 10.4 mg/dL BUN/Creatinine Ratio 18.5 CBC with Differential Collection Time: 09/02/18 3:10 Result Value Ref Range WBC 10.3 4.0 - 11.0 K/uL RBC 3.85 3.70 - 5.20 M/uL Hemoglobin 11.0 (L) 11.5 - 16.0 g/dL Hematocrit 36.9 34.0 - 47.0 % MCV 95.8 83.0 - 101.0 fL MCH 28.6 28.0 - 35.0 pg MCHC 29.8 (L) 32.0 - 36.0 g/dL RDW-CV 19.2 (H) <15.0 % RDW-SD 67.3 (H) 35.1 - 46.3 fL Platelet Count 234 140 - 440 K/uL MPV 9.3 6.5 - 12.4 fL % Neutrophils 94.0 (H) 45.0 - 82.0 % % Lymphocytes 3.2 (L) 20.0 - 45.0 % % Monocytes 1.7 (L) 4.0 - 12.0 % % Eosinophils 0.0 0.0 - 5.0 % % Basophils 0.2 0.0 - 1.0 % % Immature Granulocytes 0.9 (H) 0.0 - 0.4 % Absolute Neutrophils 9.71 (H) 1.80 - 8.50 K/uL Absolute Lymphocytes 0.33 (L) 0.60 - 3.20 K/uL Absolute Monocytes 0.18 0.00 - 1.00 K/uL Absolute Eosinophils 0.00 0.00 - 0.40 K/uL Absolute Basophils 0.02 0.00 - 0.10 K/uL Absolute Immature Granulocytes 0.09 (H) 0.00 - 0.03 K/uL % nRBC 0 0 - 2 per 100 WBCs Absolute nRBC 0.00 0.00 - 0.01 K/uL Protime INR Collection Time: 09/02/18 3:10 Result Value Ref Range Prothrombin Time 31.6 (H) 11.3 - 13.9 seconds INR 3.1 (H) 0.9 - 1.1 Vancomycin Level Collection Time: 09/02/18 19:42 Result Value Ref Range DATE OF LAST DOSE TIME OF LAST DOSE Vancomycin Random 16.0 5.0 - 40.0 ug/mL Protime INR Collection Time: 09/03/18 5:31 Result Value Ref Range Prothrombin Time 30.2 (H) 11.3 - 13.9 seconds INR 2.9 (H) 0.9 - 1.1 CBC with Differential Collection Time: 09/03/18 5:31 Result Value Ref Range WBC 10.8 4.0 - 11.0 K/uL RBC 3.40 (L) 3.70 - 5.20 M/uL Hemoglobin 9.8 (L) 11.5 - 16.0 g/dL Hematocrit 31.9 (L) 34.0 - 47.0 % MCV 93.8 83.0 - 101.0 fL MCH 28.8 28.0 - 35.0 pg MCHC 30.7 (L) 32.0 - 36.0 g/dL RDW-CV 19.1 (H) <15.0 % RDW-SD 64.9 (H) 35.1 - 46.3 fL Platelet Count 215 140 - 440 K/uL MPV 9.3 6.5 - 12.4 fL % Neutrophils 75.6 45.0 - 82.0 % % Lymphocytes 13.1 (L) 20.0 - 45.0 % % Monocytes 9.3 4.0 - 12.0 % % Eosinophils 0.8 0.0 - 5.0 % % Basophils 0.1 0.0 - 1.0 % % Immature Granulocytes 1.1 (H) 0.0 - 0.4 % Absolute Neutrophils 8.14 1.80 - 8.50 K/uL Absolute Lymphocytes 1.41 0.60 - 3.20 K/uL Absolute Monocytes 1.00 0.00 - 1.00 K/uL Absolute Eosinophils 0.09 0.00 - 0.40 K/uL Absolute Basophils 0.01 0.00 - 0.10 K/uL Absolute Immature Granulocytes 0.12 (H) 0.00 - 0.03 K/uL % nRBC 0 0 - 2 per 100 WBCs Absolute nRBC 0.00 0.00 - 0.01 K/uL Comprehensive Metabolic Panel Collection Time: 09/03/18 5:31 Result Value Ref Range Na 140 136 - 145 mmol/L K 3.5 3.4 - 5.1 mmol/L Cl 108 (H) 98 - 107 mmol/L CO2 27 20 - 31 mmol/L Anion Gap 5 3 - 16 mmol/L Glucose 93 60 - 106 mg/dL BUN 18 9 - 23 mg/dL Creatinine 1.02 0.55 - 1.02 mg/dL eGFR if not 53 (L) >=60 mL/min/1.73m2 Ca 8.6 (L) 8.7 - 10.4 mg/dL Albumin 3.0 (L) 3.2 - 4.8 g/dL Bilirubin Total 0.3 0.3 - 1.2 mg/dL Total Protein 4.7 (L) 5.7 - 8.2 g/dL AST 12 0 - 34 U/L ALT 18 10 - 49 U/L Alkaline Phosphatase 45 (L) 46 - 116 U/L Globulin 1.7 (L) 2.1 - 3.8 g/dL Albumin/Globulin Ratio 1.8 0.8 - 1.9 BUN/Creatinine Ratio 17.6 Xr Chest Pa And Lateral Result Date: 09/01/2018 CLINICAL INFORMATION: tachypnea, pneumonia history, immunocompromised. COMPARISON: 8. FINDINGS: Frontal and lateral views of the chest. Stable left chest port. Lungs: Ill-defi angel hazy appearance at the right mid to lower lung on the AP view. Small right pleural effu robert. Stable scarring/post treatment changes at the posterior right perihilar region. Surg ical clips are noted at the right hilum consistent with lobectomy changes. Heart/mediastinum : Cardiac silhouette is of normal size. Stable rightward mediastinal shift. Bones: No acute osseous abnormality appreciated. Cervical spine fusion changes. IMPRESSION - Ill-defined h azy opacities at the right mid to lower lung may represent pneumonia in the appropriate clin ical setting. Small right pleural effusion. Post therapy changes appear stable. Dictated an d Signed by: Alex Huddleston MD Electronically signed: 09/01/2018 4:[address] Chest Wo Contrast Result Date: 09/03/2018 CT CHEST WITHOUT CONTRAST CLINICAL INFORMATION: Follow up ill-defined hazy opacities at the right mid to lower lung. COMPARISON: XR CHEST PA AND LATERAL (09/01/2018); CT CHEST WO CONTRA ST (11/30/2015); CT CHEST W CONTRAST (03/28/2015); XR CHEST PA AND LATERAL (10/22/2017); PROCED URE: Axial images through the chest. Multiplanar reconstructions. At least one of the follow ing CT dose optimization techniques were used: Automated exposure control; Adjustment of mA and/or kV according to patient size; Use of iterative reconstruction technique. FINDINGS: Co mpared with most recent CT of 11/30/2015, enlarging right infrahilar soft tissue mass, measuri ng approximately 4.8 x 2.6 x 3.1 cm (reference axial image 50 series 2, and coronal image 40 series 602). 2 mm nodule in the left major fissure which is stable from 2016. Somewhat exte nsive thickening is seen in the superior segment of the right lower lobe with worsening soft tissue/mass like opacification which extends to the pleural surface. This mass like soft ti ssue thickening encases the right basilar bronchi causing areas of luminal irregularity. Bro nchi are thought to remain patent. Background of extensive coronary artery calcifications. H eart is normal in size. No evidence of mediastinal lymphadenopathy. There is suggestion of a few enlarged right hilar lymph nodes. Aorta and pulmonary arteries are normal in caliber. N o evidence of axillary adenopathy. Left chest wall antonieta catheter tip terminates in the supe rior vena cava. Hepatic steatosis. No suspicious or acute abdominal findings. Diffusely hete rogeneous appearance of the bone marrow which is unchanged since 2016. Stable densely sclero tic foci involving the posterior left ninth rib. No new suspicious lytic or blastic lesion. Chronic superior endplate compression deformity fracture of L1 which is thought to be mildly worsened since 11/06/2016. Superior endplate compression deformity fracture of T7. Grade 1 an terolisthesis of T1 over T2, chronic. Severe degenerative disease of the level. IMPRESSION- 1. Exam somewhat limited without IV contrast. Compared with most recent CT of 11/30/2015, enl arging right infrahilar soft tissue mass with background of right infrahilar/right lower lob e bandlike scarring/soft tissue thickening which extends to the lung periphery, measuring ap proximately 4.8 x 2.6 x 3.1 cm. Appearance is suspicious for lung cancer recurrence with lym phangitic component considered. 2. Mild superior endplate compression deformity of L1 verteb ra, new compared with 2016 exam. This was questionably visualized in 2017 but appears slight ly worsened since that time. 3. Chronic superior endplate compression deformity fracture at T7. 4. Similar somewhat extensive patchy and heterogeneous appearance of the bone marrow lik inge related to posttreatment changes. No convincingly new suspicious lytic or blastic lesion on today's examination. A preliminary report was sent without significant discrepancy. Dict ated and Signed by: Yovanny Chin MD Electronically signed: 09/03/2018 10:17 AM Teri Rodriguez 09/03/2018 13:37 Bree Galeas, PharmD - 09/03/2018 9:09 AM PDT WARFARIN PER PHARMACY PROTOCOL: Subjective/Objective: Thea Carmona is a 73 y.o. female admitted on 09/01/18 for HAP and is receiving warfa rin pt a for h.o PE. Patient has a past medical history of Acid reflux disease; Arthritis; COPD (chronic obstructive pulmonary disease) ([facility]); Depression; HONG (dyspnea on exertion); F ull dentures; GERD (gastroesophageal reflux disease); Hyperlipidemia; Hypertension; Hypothyr oidism; Obesity; MARCE (obstructive sleep apnea); Osteoporosis; Pneumonia (2008); Recurrent sq uamous cell carcinoma of lung ([facility]) (07/11/2014); Rheumatoid arthritis(714.0); Spinal stenosi s; Spondylolisthesis of cervical region; Sputum culture positive for Scopulariopsis species; Squamous cell carcinoma of lung ([facility]) (07/2013); Stroke ([facility]) (2006); Stroke ([facility]) (2007); a nd Upper GI bleed (06/2014). Goal INR: 2-3 ?Initiation ?chronic Home regimen: Per patient- 5mg on Mon, Wed, Fri and 2.5mg all other days of week Managed by:- Sensitizers:age and malignancy Drug Interactions: simvastatin (at home), vancomycin, cefepime, po steroid, bactrim 09/01 Recent Labs Lab 09/03/18 0531 09/02/18 0310 09/01/18 2100 09/01/18 1928 CREA 1.02 0.92 -- 0.91 HGB 9.8* 11.0* -- 11.9 HCT 31.9* 36.9 -- 38.8 PLT 215 234 -- 228 INR 2.9* 3.1* 3.5* -- Date 09/01 09/02 09/03 Hgb 11.9 11 9.8 Hct 38.8 36.9 31.9 Platelets 228 234 215 INR 3.5 3.1 2.9 Warfarin Dose hold 2 mg 2 mg Assessment: The INR is slightly above the target range of 2-3 for prior PE , albeit dropping and war farin can be restarted Bactrim drug-drug interaction: Consider reducing warfarin dose by 10-20% = 22.5-20 mg/7d ays; was supratherapuetic on admit Plan: 1. Warfarin 2 mg po x1 and orders for 2.5 mg daily starting 09/04 2. Medication profile reviewed for potential drug-drug interactions 3. Labs in am: INR 4. 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 5. Pharmacist to follow daily Warfarin Dosing Nomogram Per P&T-approved Electronically signed by: Bree Galeas, PharmD 09/03/2018 9:09 Hugo Boogie PharmD - 09/02/2018 8:42 PM PDT VANCOMYCIN PER PHARMACY PROTOCOL: AMS/Drug Name - ney Patient: Thea Carmona [id number] Admit: 09/01/2018 17:50 RELEVANT ALLERGIES: none relavent 73 yrs old female patient admitted on 09/01/2018 for HCAP Patient is receiving vancomycin s tarting on 09/01/18 for HAP. Patient has a past medical history of Acid reflux disease; Arthr itis; COPD (chronic obstructive pulmonary disease) (HCC); Depression; HONG (dyspnea on exerti on); Full dentures; GERD (gastroesophageal reflux disease); Hyperlipidemia; Hypertension; Hy pothyroidism; Obesity; MARCE (obstructive sleep apnea); Osteoporosis; Pneumonia (2008); Recurr ent squamous cell carcinoma of lung (HCC) (07/11/2014); Rheumatoid arthritis(714.0); Spinal s tenosis; Spondylolisthesis of cervical region; Sputum culture positive for Scopulariopsis sp ecies; Squamous cell carcinoma of lung (HCC) (07/2013); Stroke (HCC) (2006); Stroke (HCC) (18 01); and Upper GI bleed (06/2014). . Risk factors for MDR organisms include recent healthcare contact and immunosuppressed. HPI: 73-year-old ex-smoker being admitted from pulmonary clinic with tachypnea from right l ower lobe pneumonia, immunosuppression with steroid and methotrexate, incidental pulmonary e mbolism on warfarin, and metastatic lung cancer being controlled with afatinib. However, she became ill in July, and also had bleeding, and was admitted for August 17 to [facility] in [place]. 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 She was discharged on tapering prednisone, but that did not work. So August for she saw her doctor and her prednisone was increased again to 40 mg, but Thursday, yesterday by the end of the day, she was feeling bad again, and quite tachypnea ca n feeling bad today. She received a brief course of antimicrobial therapy it seems before s he was admitted August 17, 2018 to [facility] in [place]. Antimicrobials - Current Antibiotic Dates of Therapy vanco 4/3 zosyn 4/3 bactrim 4/3 Antimicrobials - Discontinued Antibiotic Dates of Therapy Historical Vancomycin dosing (previous & current encounter): vanco 1g q24h Micro/Cultures/Diagnostics: Microbiology Results (Last 14 Days by Collected Date with Culture/Sensitivity) Procedure Component Value Units Date/Time Culture, MRSA [[id number]] Collected: 09/01/182045 Order Status: Sent Lab Status: In process Updated: 09/01/182045 Specimen: Tissue from Nares Culture, Blood [[id number]] (Normal) Collected: 09/01/181926 Order Status: Completed Lab Status: Preliminary result Updated: 09/02/18 0741 Specimen: Blood Culture No growth: Monitored continually by instrument for 5 days Culture, Blood [[id number]] (Normal) Collected: 09/01/181926 Order Status: Completed Lab Status: Preliminary result Updated: 09/02/18 0741 Specimen: Blood Culture No growth: Monitored continually by instrument for 5 days Respiratory pathogen panel, NAAT [[id number]] Order Status: Sent Lab Status: No result Specimen: Tissue from Nasopharynx Pneumocystis Jiroveci Ag, Immunofluorescent [[id number]] Collected: 09/01/18 160 Order Status: Sent Lab Status: In process Updated: 09/01/18 160 Specimen: Body Fluid from Sputum, Expectorated Culture, Respiratory, Lower, Smear [[id number]] Collected: 09/01/18 1555 Order Status: Completed Lab Status: Preliminary result Updated: 09/02/18 1222 Specimen: Body Fluid from Sputum, Expectorated Culture Culture in progress... 4+ Usual Respiratory Aline Gram Stain Result 4+ White Blood Cells 2+ Epithelial cells 3+ Gram positive cocci Relevant cultures from previous admits: Date Source Organisms Sensitivities none UA: none Admission Wt: Weight: 71.8 kg (158 lb 4.6 oz) Current Wt: Weight: 71.8 kg (158 lb 4.6 oz) Min/Max Temp past 24 hours:Temp Av.8 C (98.2 F) Min: 36.2 C (97.2 F) Max: 3 7.6 C (99.7 F) Estimated Creatinine Clearance: 50 mL/min (based on SCr of 0.92 mg/dL). Intake/Output Summary (Last 24 hours) at 09/02/182044 Last data filed at 09/02/18 1900 Gross per 24 hour Intake 1315 ml Output 2125 ml Net -810 ml Temp: [36.2 C (97.2 F)-37.6 C (99.7 F)] 37.6 C (99.7 F) Pulse: [77-97] 91 Resp: [18-20] 20 BP: (113-145)/(59-74) 135/67 Recent Labs Lab 09/02/18 1942 09/02/18 0310 09/01/18 1928 WBC -- 10.3 10.7 CREA -- 0.92 0.91 VANCORANDOM 16.0 -- -- PROCALCITONI -- -- <0.05 Imaging: Report still pending for chest xray Date 09/01 09/02 Time of Vancomycin draw -- 1900 Vancomycin result -- 16.0 LEVEL or TROUGH level Serum Creatinine 0.91 0.92 CrCl (mL/min) 50 50 Vanco load/bolus 1250 mg -- Vanco dose - current -- 1000 mg q12hr Vanco dose - new 1000 mg q12hr 1000mg q24h Assessment: Vancomycin Day # 2 Other antibiotics: zosyn and septra (PJP) Target Trough: 15-20 mcg/ml for HAP WBC: WNL; Renal: wnl; Temp: afebrile; Culture: nares, sputum, and blood pending; VS: tac hycardia PCT is <0.05 and WBC is WNL. Pt is afebrile - question bacterial infection Renal function: UOP: 1.2 mL/kg/hr Plan: 1. Vancomycin level prior to 3rd dose therapeutic at 16.0. Continue vancomycin at 1g IV q2 4h. 2. Vancomycin trough ordered for 09/04/18 @ 2000 (draw 60 minutes prior to hanging the 5th do se) 3. Serum creatinine DAILY for first 3 days, then at least every 3 days while on vancomycin. 4. Will monitor renal function, clinical status, infection markers daily with troughs and d ose adjustment as needed. Definitions: For the purpose of this protocol, "trough" means a steady state trough before the 4th dose of the initial/new dosing regimen and "level" means all other levels drawn including before the 3rd dose References: Vancomycin dosing protocol IDSA guidelines Procalcitonin Algorithm Per P&T-approved Vancomycin Dosing and Monitoring Protocol Electronically signed by: Hugo Dsouza PharmD 09/02/2018 20:45 Teri Craig MD - 09/02/2018 4:51 PM PDTF ormatting of this note might be different from the original. HOSPITALIST PROGRESS NOTE Patient: Thea Carmona : 1945: Age: 73 y.o. MedRec: [id number] PCP: Caitlin Chino MD Admission date: 09/01/2018 Hospital day # : 1 Physician author: Teri Rodriguez MD Today: 09/02/2018 SUBJECTIVE/ OVERNIGHT EVENTS : Denied any shortness of breath at rest She has been pacing in the room ADMISSION HISTORY : History of the presenting illness : Thea Carmona is a 73 y.o. female was admitt ed on 09/01/2018 with a history of locally recurrent and regionally metastatic squamous cell l brianne cancer (s/p chemo/radiation, right lower lobectomy, in remission on Afatinib 30 mg, foll owed by Dr Park) COPD, RA (on MTX and Prednisone), Anxiety/Depression, h/o PE, HLD, H ypothyroidism and GERd, recent admission at [facility] for COPD exacerbation/Hypoxia, sathya ated with nebs and IV steroids, no abx. Discharged 08/22 on steroid taper (60 mg X 3 days, 4 0 mg X 3 days), symptoms worsening since discharge with tachypnea and SOB. Pt saw PCP 08/30 an d her prednisone taper was prolonged (currenltly on 3rd day of 40 mg X 5 days and so on). Pt was seen by Dr. Gurmeet Vargas in clinic and was directly admitted for RLL PNA. CXR today s howed hazy opacities in right mid to lower lobe (appear denser than CXR at [facility]. Pt also had CT abdomen/pelvis at [facility] for rectal sheath hematoma which showed nodular opacities in right lower lobe. Given immunocompromised state, Dr. Vargas concerned for PCP PNA. Pt currently reports productive cough with greenish sputum. No fever/chills. No Sick c ontacts. MEDICATIONS: afatinib 30 mg Oral QAM AC albuterol-ipratropium 3 mL Nebulization RT Q4H atorvaSTATin 20 mg Oral Nightly budesonide 0.5 mg Nebulization RT BID cefepime 1 g Intravenous 2 times per day famotidine 20 mg Oral BID folic acid 1 mg Oral Daily furosemide 20 mg Oral Daily levothyroxine 125 mcg Oral QAM AC mirtazapine 15 mg Oral Nightly predniSONE 40 mg Oral Daily roflumilast 500 mcg Oral Nightly sulfamethoxazole-trimethoprim 1 tablet Oral BID vancomycin per pharmacy Other Pharmacy Consult venlafaxine 75 mg Oral Daily with breakfast warfarin 2 mg Oral Once - Warfarin warfarin per pharmacy Other Pharmacy Consult OBJECTIVE: Vitals: 09/02/18 0417 09/02/18 0759 09/02/18 1016 09/02/18 1218 BP: 143/73 113/74 Pulse: 80 77 80 82 Resp: 18 18 18 20 Temp: 36.2 C (97.2 F) 36.5 C (97.7 F) TempSrc: Temporal Oral SpO2: 94% 94% 94% 95% Weight: Height: Weight: 71.8 kg (158 lb 4.6 oz) I/O last 3 completed shifts: In: 200 [P.O.:200] Out: 875 [Urine:875] I/O this shift: In: 625 [P.O.:240; I.V.:30; IV Piggyback:355] Out: 950 [Urine:950] PHYSICAL Exam : Gen Mary Anne - alert, cooperative and no distress Head - Normocephalic, without obvious abnormality, atraumatic Eyes - PERRL, conjunctiva/corneas clear, EOM's intact both eyes ENT - mucous membranes moist Neck - supple Lungs - unlabored breathing and poor movement with mild wheezes and rales Heart - normal rate, regular rhythm, normal S1, S2, no murmurs, rubs, clicks or gallops Abdomen - soft, non-tender, without masses or organomegaly Extremities - no peripheral edema, no clubbing or cyanosis Skin - no rashes, no ecchymoses Neurologic - Alert and oriented x 3. CN II-XII intact. LABS & IMAGING: reviewed Recent Results (from the past 48 hour(s)) Culture, Blood Collection Time: 09/01/18 19:27 Result Value Ref Range Culture No growth: Monitored continually by instrument for 5 days Culture, Blood Collection Time: 09/01/18 19:27 Result Value Ref Range Culture No growth: Monitored continually by instrument for 5 days CBC with Differential Collection Time: 09/01/18 19:28 Result Value Ref Range WBC 10.7 4.0 - 11.0 K/uL RBC 4.09 3.70 - 5.20 M/uL Hemoglobin 11.9 11.5 - 16.0 g/dL Hematocrit 38.8 34.0 - 47.0 % MCV 94.9 83.0 - 101.0 fL MCH 29.1 28.0 - 35.0 pg MCHC 30.7 (L) 32.0 - 36.0 g/dL RDW-CV 19.3 (H) <15.0 % RDW-SD 66.4 (H) 35.1 - 46.3 fL Platelet Count 228 140 - 440 K/uL MPV 8.9 6.5 - 12.4 fL % Neutrophils 80.0 45.0 - 82.0 % % Lymphocytes 9.9 (L) 20.0 - 45.0 % % Monocytes 7.8 4.0 - 12.0 % % Eosinophils 0.7 0.0 - 5.0 % % Basophils 0.3 0.0 - 1.0 % % Immature Granulocytes 1.3 (H) 0.0 - 0.4 % Absolute Neutrophils 8.55 (H) 1.80 - 8.50 K/uL Absolute Lymphocytes 1.06 0.60 - 3.20 K/uL Absolute Monocytes 0.83 0.00 - 1.00 K/uL Absolute Eosinophils 0.08 0.00 - 0.40 K/uL Absolute Basophils 0.03 0.00 - 0.10 K/uL Absolute Immature Granulocytes 0.14 (H) 0.00 - 0.03 K/uL % nRBC 0 0 - 2 per 100 WBCs Absolute nRBC 0.02 (H) 0.00 - 0.01 K/uL Basic Metabolic Panel Collection Time: 09/01/18 19:28 Result Value Ref Range Na 141 136 - 145 mmol/L K 3.0 (L) 3.4 - 5.1 mmol/L Cl 107 98 - 107 mmol/L CO2 27 20 - 31 mmol/L Anion Gap 7 3 - 16 mmol/L Glucose 80 60 - 106 mg/dL BUN 19 9 - 23 mg/dL Creatinine 0.91 0.55 - 1.02 mg/dL eGFR if not 60 >=60 mL/min/1.73m2 Ca 8.2 (L) 8.7 - 10.4 mg/dL BUN/Creatinine Ratio 20.9 Procalcitonin Collection Time: 09/01/18 19:28 Result Value Ref Range Procalcitonin <0.05 <=0.50 ng/mL Comment Lactate Dehydrogenase Collection Time: 09/01/18 19:28 Result Value Ref Range LDH TOTAL 299 (H) 120 - 246 U/L Protime INR Collection Time: 09/01/18 21:00 Result Value Ref Range Prothrombin Time 34.3 (H) 11.3 - 13.9 seconds INR 3.5 (H) 0.9 - 1.1 Basic Metabolic Panel Collection Time: 09/02/18 3:10 Result Value Ref Range Na 139 136 - 145 mmol/L K 3.4 3.4 - 5.1 mmol/L Cl 104 98 - 107 mmol/L CO2 29 20 - 31 mmol/L Anion Gap 6 3 - 16 mmol/L Glucose 165 (H) 60 - 106 mg/dL BUN 17 9 - 23 mg/dL Creatinine 0.92 0.55 - 1.02 mg/dL eGFR if not 60 >=60 mL/min/1.73m2 Ca 8.2 (L) 8.7 - 10.4 mg/dL BUN/Creatinine Ratio 18.5 CBC with Differential Collection Time: 09/02/18 3:10 Result Value Ref Range WBC 10.3 4.0 - 11.0 K/uL RBC 3.85 3.70 - 5.20 M/uL Hemoglobin 11.0 (L) 11.5 - 16.0 g/dL Hematocrit 36.9 34.0 - 47.0 % MCV 95.8 83.0 - 101.0 fL MCH 28.6 28.0 - 35.0 pg MCHC 29.8 (L) 32.0 - 36.0 g/dL RDW-CV 19.2 (H) <15.0 % RDW-SD 67.3 (H) 35.1 - 46.3 fL Platelet Count 234 140 - 440 K/uL MPV 9.3 6.5 - 12.4 fL % Neutrophils 94.0 (H) 45.0 - 82.0 % % Lymphocytes 3.2 (L) 20.0 - 45.0 % % Monocytes 1.7 (L) 4.0 - 12.0 % % Eosinophils 0.0 0.0 - 5.0 % % Basophils 0.2 0.0 - 1.0 % % Immature Granulocytes 0.9 (H) 0.0 - 0.4 % Absolute Neutrophils 9.71 (H) 1.80 - 8.50 K/uL Absolute Lymphocytes 0.33 (L) 0.60 - 3.20 K/uL Absolute Monocytes 0.18 0.00 - 1.00 K/uL Absolute Eosinophils 0.00 0.00 - 0.40 K/uL Absolute Basophils 0.02 0.00 - 0.10 K/uL Absolute Immature Granulocytes 0.09 (H) 0.00 - 0.03 K/uL % nRBC 0 0 - 2 per 100 WBCs Absolute nRBC 0.00 0.00 - 0.01 K/uL Protime INR Collection Time: 09/02/18 3:10 Result Value Ref Range Prothrombin Time 31.6 (H) 11.3 - 13.9 seconds INR 3.1 (H) 0.9 - 1.1 Xr Chest Pa And Lateral Result Date: 09/01/2018 CLINICAL INFORMATION: tachypnea, pneumonia history, immunocompromised. COMPARISON: 8. FINDINGS: Frontal and lateral views of the chest. Stable left chest port. Lungs: Ill-defi angel hazy appearance at the right mid to lower lung on the AP view. Small right pleural effu robert. Stable scarring/post treatment changes at the posterior right perihilar region. Surg ical clips are noted at the right hilum consistent with lobectomy changes. Heart/mediastinum : Cardiac silhouette is of normal size. Stable rightward mediastinal shift. Bones: No acute osseous abnormality appreciated. Cervical spine fusion changes. IMPRESSION - Ill-defined h azy opacities at the right mid to lower lung may represent pneumonia in the appropriate clin ical setting. Small right pleural effusion. Post therapy changes appear stable. Dictated an d Signed by: Alex Huddleston MD Electronically signed: 09/01/2018 4:45 PM ASSESSMENT/PLAN: Pneumonia of right lower lobe due to infectious organism : I am not certain she has clear P neumonia and will obtain a CT scan while continue the abx Rheumatoid arthritis(714.0) : On MTX and stable Hyperlipidemia : on statin and continue Hypertension : Stable and not taking any meds now Recurrent squamous cell carcinoma of lung : Her Oral Chemo may cause opportunistic infectio n and will check the CT scan Radiation pneumonitis : Noted in the past but had done well and will check the CT Acute infective exacerbation of chronic obstructive airway disease :She is more stable and not sure the cause and will check the CT DVT Prophylaxis : Coumadin with INR goal 2-3 Code Status : Full Code. DISCHARGE PLAN: Discharge in 2-4 days. Discussed with patient Teri Rodriguez 09/02/2018 16:51 Bunny Ayala, PharmD - 09/02/2018 10:52 AM PDTFormatting of this note might be different from the origina l. VANCOMYCIN PER PHARMACY PROTOCOL: AMS/Drug Name - vanco and zosyn Patient: Thea Carmona [id number] Admit: 09/01/2018 17:50 RELEVANT ALLERGIES: none relavent 73 yrs old female patient admitted on 09/01/2018 for HCAP Patient is receiving vancomycin s tarting on 09/01/18 for HAP. 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 . Risk factors for MDR organisms include recent healthcare contact and immunosuppressed. HPI: 73-year-old ex-smoker being admitted from pulmonary clinic with tachypnea from right l ower lobe pneumonia, immunosuppression with steroid and methotrexate, incidental pulmonary e mbolism on warfarin, and metastatic lung cancer being controlled with afatinib. However, she became ill in July, and also had bleeding, and was admitted for August 17 to [facility] 24 at [facility] in [place]. 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 She was discharged on tapering prednisone, but that did not work. So August for she saw her doctor and her prednisone was increased again to 40 mg, but Thursday, yesterday by the end of the day, she was feeling bad again, and quite tachypnea ca n feeling bad today. She received a brief course of antimicrobial therapy it seems before s he was admitted August 17, 2018 to [facility] in [place]. Antimicrobials - Current Antibiotic Dates of Therapy vanco 4/3 zosyn 4/3 bactrim 4/3 Antimicrobials - Discontinued Antibiotic Dates of Therapy Historical Vancomycin dosing (previous & current encounter): vanco 1g q24h Micro/Cultures/Diagnostics: Microbiology Results (Last 14 Days by Collected Date with Culture/Sensitivity) Procedure Component Value Units Date/Time Culture, MRSA [[id number]] Collected: 09/01/182045 Order Status: Sent Lab Status: In process Updated: 09/01/182045 Specimen: Tissue from Nares Culture, Blood [[id number]] (Normal) Collected: 09/01/181926 Order Status: Completed Lab Status: Preliminary result Updated: 09/02/18740 Specimen: Blood Culture No growth: Monitored continually by instrument for 5 days Culture, Blood [[id number]] (Normal) Collected: 09/01/181926 Order Status: Completed Lab Status: Preliminary result Updated: 09/02/18740 Specimen: Blood Culture No growth: Monitored continually by instrument for 5 days Respiratory pathogen panel, NAAT [[id number]] Order Status: Sent Lab Status: No result Specimen: Tissue from Nasopharynx Pneumocystis Jiroveci Ag, Immunofluorescent [[id number]] Collected: 09/01/18 160 Order Status: Sent Lab Status: In process Updated: 09/01/181607 Specimen: Body Fluid from Sputum, Expectorated Culture, Respiratory, Lower, Smear [[id number]] Collected: 09/01/18 1554 Order Status: Sent Lab Status: In process Updated: 09/01/18 1601 Specimen: Body Fluid from Sputum, Expectorated Relevant cultures from previous admits: Date Source Organisms Sensitivities none UA: none Admission Wt: Weight: 71.8 kg (158 lb 4.6 oz) Current Wt: Weight: 71.8 kg (158 lb 4.6 oz) Min/Max Temp past 24 hours:Temp Av.6 C (97.8 F) Min: 36.2 C (97.2 F) Max: 3 6.9 C (98.4 F) Estimated Creatinine Clearance: 50 mL/min (based on SCr of 0.92 mg/dL). Intake/Output Summary (Last 24 hours) at 09/02/18 1053 Last data filed at 09/02/18 0815 Gross per 24 hour Intake 200 ml Output 1225 ml Net -1025 ml Temp: [36.2 C (97.2 F)-36.9 C (98.4 F)] 36.5 C (97.7 F) Pulse: [77-109] 80 Resp: [18-22] 18 BP: (113-149)/(67-86) 113/74 Recent Labs Lab 09/02/18 0310 09/01/18 1928 WBC 10.3 10.7 CREA 0.92 0.91 PROCALCITONI -- <0.05 Imaging: Report still pending for chest xray Date 09/01 09/02 Time of Vancomycin draw -- 1900 Vancomycin result -- LEVEL or TROUGH level Serum Creatinine 0.91 0.92 CrCl (mL/min) 50 50 Vanco load/bolus 1250 mg -- Vanco dose - current -- 1000 mg q12hr Vanco dose - new 1000 mg q12hr Assessment: Vancomycin Day # 2 Other antibiotics: zosyn and septra (PJP) Target Trough: 15-20 mcg/ml for HAP WBC: WNL; Renal: wnl; Temp: afebrile; Culture: nares, sputum, and blood pending; VS: tac hycardia PCT is <0.05 and WBC is WNL. Pt is afebrile - question bacterial infection Renal function: UOP: 1.2 mL/kg/hr Plan: 1. Vancomycin load of 1250 mg (~21 mg/kg) IVPB x 1 given on 09/01/18 @ 2000, followed by main tenance vancomycin 1000 mg IVPB q12h 2. Vancomycin level ordered for 09/02/18 @ 1900 (draw 60 minutes prior to hanging the 3rd dos e) 3. Serum creatinine DAILY for first 3 days, then at least every 3 days while on vancomycin. 4. Will monitor renal function, clinical status, infection markers daily with troughs and d ose adjustment as needed. Definitions: For the purpose of this protocol, "trough" means a steady state trough before the 4th dose of the initial/new dosing regimen and "level" means all other levels drawn including before the 3rd dose References: Vancomycin dosing protocol IDSA guidelines Procalcitonin Algorithm Per P&T-approved Vancomycin Dosing and Monitoring Protocol Electronically signed by: Bunny Cruz PharmD 09/02/2018 10:53 Bunny Ayala PharmD - 09/02/2018 10:44 AM PDT WARFARIN PER PHARMACY PROTOCOL: Subjective/Objective: Thea Carmona is a 73 y.o. female admitted on @ADMITDT@ for HAP and is receiving wa rfarin. Patient has a past medical history of Acid reflux disease; Arthritis; COPD (chronic obstructive pulmonary disease) ([facility]); Depression; HNOG (dyspnea on exertion); Full dentures; GERD (gastroesophageal reflux disease); Hyperlipidemia; Hypertension; Hypothyroidism; Obesi ty; MARCE (obstructive sleep apnea); Osteoporosis; Pneumonia (2008); Recurrent squamous cell c arcinoma of lung ([facility]) (07/11/2014); Rheumatoid arthritis(714.0); Spinal stenosis; Spondyloli sthesis of cervical region; Sputum culture positive for Scopulariopsis species; Squamous marilou l carcinoma of lung ([facility]) (07/2013); Stroke ([facility]) (2006); Stroke ([facility]) (2007); and Upper GI b leed (06/2014). Goal INR: 2-3 ?Initiation ?chronic Home regimen: Per patient- 5mg on Mon, Wed, Fri and 2.5mg all other days of week Managed by:- Sensitizers:age and malignancy Drug Interactions: statin, vancomycin, zosyn, steroid, bactrim On Warf due to prior PE Recent Labs Lab 09/02/18 0310 09/01/18 2100 09/01/18 1928 CREA 0.92 -- 0.91 HGB 11.0* -- 11.9 HCT 36.9 -- 38.8 PLT 234 -- 228 INR 3.1* 3.5* -- Date 09/01 09/02 Hgb 11.9 11 Hct 38.8 36.9 Platelets 228 234 INR 3.5 3.1 Warfarin Dose hold 2 mg Assessment: The INR is slightly above the target range of 2-3 for prior PE , albeit dropping and war farin can be restarted Plan: 1. Warfarin 2 mg po x1 to ensure INR does not drop below goal 2. Medication profile reviewed for potential drug-drug interactions 3. Labs in am: INR 4. Warfarin education received NO. 5. Pharmacist to follow daily Warfarin Dosing Nomogram Per P&T-approved Electronically signed by: Bunny Cruz PharmDawna 09/02/2018 10:44 Hugo Boogie PharmD - 09/01/2018 9:56 PM PDTF ormatting of this note might be different from the original. WARFARIN PER PHARMACY PROTOCOL: Subjective/Objective: Thea Carmona is a 73 y.o. female admitted on @ADMITDT@ for HAP and is receiving wa rfarin. Patient has a past medical history of Acid reflux disease; Arthritis; COPD (chronic obstructive pulmonary disease) ([facility]); Depression; HONG (dyspnea on exertion); Full dentures; GERD (gastroesophageal reflux disease); Hyperlipidemia; Hypertension; Hypothyroidism; Obesi ty; MACRE (obstructive sleep apnea); Osteoporosis; Pneumonia (2008); Recurrent squamous cell c arcinoma of lung ([facility]) (07/11/2014); Rheumatoid arthritis(714.0); Spinal stenosis; Spondyloli sthesis of cervical region; Sputum culture positive for Scopulariopsis species; Squamous marilou l carcinoma of lung ([facility]) (07/2013); Stroke ([facility]) (2006); Stroke ([facility]) (2007); and Upper GI b leed (06/2014). Goal INR: 2-3 ?Initiation ?chronic Home regimen: Per patient- 5mg on Mon, Wed, Fri and 2.5mg all other days of week Managed by:- Sensitizers:age and malignancy Drug Interactions: statin, septra, steroid On Warf due to prior PE Recent Labs Lab 09/01/18 2100 09/01/18 1928 CREA -- 0.91 HGB -- 11.9 HCT -- 38.8 PLT -- 228 INR 3.5* -- Date 09/01 Hgb 11.9 Hct 38.8 Platelets 228 INR 3.5 Warfarin Dose hold Assessment: The INR is above the target range of 2-3 for prior PE Plan: 1. Hold warfarin. Future dose to be determined by daily INR 2. Medication profile reviewed for potential drug-drug interactions 3. Labs in am: Hgb, Hct, INR 4. Warfarin education received NO. 5. Pharmacist to follow daily Warfarin Dosing Nomogram Per P&T-approved Electronically signed by: Hugo Dsouza PharmD 09/01/2018 21:48 Hugo Boogie PharmD - 09/01/2018 7:43 PM PDTForma tting of this note might be different from the original. VANCOMYCIN PER PHARMACY PROTOCOL: AMS/Drug Name - fadyverona Patient: Thea Carmona [id number] Admit: 09/01/2018 17:50 RELEVANT ALLERGIES: none relavent 73 yrs old female patient admitted on 09/01/2018 for HCAP Patient is receiving vancomycin s tarting on 09/01/18 for HAP. 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 . Risk factors for MDR organisms include recent healthcare contact and immunosuppressed. HPI: 73-year-old ex-smoker being admitted from pulmonary clinic with tachypnea from right l ower lobe pneumonia, immunosuppression with steroid and methotrexate, incidental pulmonary e mbolism on warfarin, and metastatic lung cancer being controlled with afatinib. However, she became ill in July, and also had bleeding, and was admitted for August 17 to [facility] at [facility] in [place]. 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 She was discharged on tapering prednisone, but that did not work. So August for she saw her doctor and her prednisone was increased again to 40 mg, but Thursday, yesterday by the end of the day, she was feeling bad again, and quite tachypnea ca n feeling bad today. She received a brief course of antimicrobial therapy it seems before s he was admitted August 17, 2018 to [facility] in [place]. Antimicrobials - Current Antibiotic Dates of Therapy vanco 4/3 zosyn 4/3 bactrim 4/3 Antimicrobials - Discontinued Antibiotic Dates of Therapy Historical Vancomycin dosing (previous & current encounter): vanco 1g q24h Micro/Cultures/Diagnostics: Microbiology Results (Last 14 Days by Collected Date with Culture/Sensitivity) Procedure Component Value Units Date/Time Culture, MRSA [[id number]] Collected: 09/01/182045 Order Status: Sent Lab Status: In process Updated: 09/01/182045 Specimen: Tissue from Nares Culture, Blood [[id number]] Collected: 09/01/181926 Order Status: Sent Lab Status: In process Updated: 09/01/181931 Specimen: Blood Culture, Blood [[id number]] Collected: 09/01/181926 Order Status: Sent Lab Status: In process Updated: 09/01/181931 Specimen: Blood Respiratory pathogen panel, NAAT [[id number]] Order Status: Sent Lab Status: No result Specimen: Tissue from Nasopharynx Pneumocystis Jiroveci Ag, Immunofluorescent [[id number]] Collected: 09/01/181607 Order Status: Sent Lab Status: In process Updated: 09/01/18 160 Specimen: Body Fluid from Sputum, Expectorated Culture, Respiratory, Lower, Smear [[id number]] Collected: 09/01/18 1555 Order Status: Sent Lab Status: In process Updated: 09/01/181607 Specimen: Body Fluid from Sputum, Expectorated Relevant cultures from previous admits: Date Source Organisms Sensitivities none UA: none Admission Wt: Weight: 71.8 kg (158 lb 4.6 oz) Current Wt: Weight: 71.8 kg (158 lb 4.6 oz) Min/Max Temp past 24 hours:Temp Av.7 C (98 F) Min: 36.4 C (97.5 F) Max: 36. 9 C (98.4 F) Estimated Creatinine Clearance: 50 mL/min (based on SCr of 0.91 mg/dL). No intake or output data in the 24 hours ending 09/01/182206 Temp: [36.4 C (97.5 F)-36.9 C (98.4 F)] 36.4 C (97.5 F) Pulse: [96-109] 96 Resp: [20-22] 20 BP: (145-149)/(67-86) 145/67 Recent Labs Lab 09/01/181927 WBC 10.7 CREA 0.91 PROCALCITONI <0.05 Imaging: Report still pending for chest xray Date 09/01 Time of Vancomycin draw -- Vancomycin result -- LEVEL or TROUGH Serum Creatinine 0.91 CrCl (mL/min) 50 Vanco load/bolus 1250 mg Vanco dose - current -- Vanco dose - new 1000 mg q12hr Assessment: Vancomycin Day # 1 Other antibiotics: zosyn and septra Target Trough: 15-20 mcg/ml for HAP WBC: WNL; Renal: wnl; Temp: afebrile; Culture: nares, sputum, and blood pending; VS: tac hycardia Renal function: UOP: -- mL/kg/hr, improving/declining/stable-- Plan: 1. Vancomycin load of 1250 mg (~21 mg/kg) IVPB x 1 given on 09/01/18 @ 2000, followed by main tenance vancomycin 1000 mg IVPB q12h 2. Vancomycin level ordered for 09/02/18 @ 1900 (draw 60 minutes prior to hanging the 3rd dos e) 3. Serum creatinine DAILY for first 3 days, then at least every 3 days while on vancomycin. 4. Will monitor renal function, clinical status, infection markers daily with troughs and d ose adjustment as needed. Definitions: For the purpose of this protocol, "trough" means a steady state trough before the 4th dose of the initial/new dosing regimen and "level" means all other levels drawn including before the 3rd dose References: Vancomycin dosing protocol IDSA guidelines Procalcitonin Algorithm Per P&T-approved Vancomycin Dosing and Monitoring Protocol Electronically signed by: Hugo Dsouza PharmD 09/01/2018 22:07 documented in this encounter Plan of Treatment +--------+ + + + + | Date | Type | Specialty | Care Team | Description | +--------+ + + + + | 05/30/ | Office | Rheumatology | Santosh Sumner, | | | 2018 | Visit | | [address] | | | | | [address] | | | | | | [place] [address] | | | | | | [phone] | | | | | | | | +--------+ + + + + | 06/08/ | Office | Physical Medicine | Rocky Santos, | | | 2019 | Visit | and Rehabilitation | MD Nichole Mario | | | | | | [place] | | | | | | [address] | | | | | | | | +--------+ + + + + | 06/16/ | Appointment | Pulmonology | Eveline Jaffe | | 2019 | | | MD Nichole Carter | | | | | | [address] [address] | | | | | | [place] [address] | | | | | | [phone] | | | | | | | | +--------+ + + + + | 06/16/ | Office | Pulmonology | Eveline Jaffe | | 2019 | Visit | | MD Nichole Carter | | | | | | [place] | | | | | | [place] [address] | | | | | | [phone] | | | | | | | | +--------+ + + + + | 08/24/ | Office | Cardiology | Anisha Lopez DO | | | 2019 | Visit | | [address] | | | | | | [place] | | | | | | [address] | | | | | | | | +--------+ + + + + documented as of this encounter Procedures + +--------+ + + + | Procedure Name | Priori | Date/Time | Associated Diagnosis | Comments | | | ty | | | | + +--------+ + + + | PROTIME INR | Routin | 09/04/2018 | | Results for this | | | e | 6:02 AM | | procedure are in the | | | | PDT | | results section. | + +--------+ + + + | CT ANGIOGRAM | Routin | 09/03/2018 | | Results for this | | PULMONARY | e | 3:43 PM | | procedure are in the | | | | PDT | | results section. | + +--------+ + + + | PROTIME INR | Routin | 09/03/2018 | | Results for this | | | e | 5:31 AM | | procedure are in the | | | | PDT | | results section. | + +--------+ + + + | CBC WITH | Routin | 09/03/2018 | | Results for this | | DIFFERENTIAL | e | 5:31 AM | | procedure are in the | | | | PDT | | results section. | + +--------+ + + + | COMPREHENSIVE | Routin | 09/03/2018 | | Results for this | | METABOLIC PANEL | e | 5:31 AM | | procedure are in the | | | | PDT | | results section. | + +--------+ + + + | CT CHEST WO CONTRAST | Routin | 09/02/2018 | | Results for this | | | e | 8:40 PM | | procedure are in the | | | | PDT | | results section. | + +--------+ + + + | VANCOMYCIN LEVEL | Timed | 09/02/2018 | | Results for this | | | | 7:42 PM | | procedure are in the | | | | PDT | | results section. | + +--------+ + + + | PROTIME INR | Routin | 09/02/2018 | | Results for this | | | e | 3:10 AM | | procedure are in the | | | | PDT | | results section. | + +--------+ + + + | CBC WITH | Routin | 09/02/2018 | | Results for this | | DIFFERENTIAL | e | 3:10 AM | | procedure are in the | | | | PDT | | results section. | + +--------+ + + + | BASIC METABOLIC | Routin | 09/02/2018 | | Results for this | | PANEL | e | 3:10 AM | | procedure are in the | | | | PDT | | results section. | + +--------+ + + + | PROTIME INR | STAT | 09/01/2018 | | Results for this | | | | 9:00 PM | | procedure are in the | | | | PDT | | results section. | + +--------+ + + + | CULTURE, MRSA | Routin | 09/01/2018 | | Results for this | | | e | 8:46 PM | | procedure are in the | | | | PDT | | results section. | + +--------+ + + + | 1,3 [id number] | Routin | 09/01/2018 | | Results for this | | | e | 7:28 PM | | procedure are in the | | | | PDT | | results section. | + +--------+ + + + | PROCALCITONIN, SERUM | Routin | 09/01/2018 | | Results for this | | | e | 7:28 PM | | procedure are in the | | | | PDT | | results section. | + +--------+ + + + | CBC WITH | Routin | 09/01/2018 | | Results for this | | DIFFERENTIAL | e | 7:28 PM | | procedure are in the | | | | PDT | | results section. | + +--------+ + + + | LACTATE | Routin | 09/01/2018 | | Results for this | | DEHYDROGENASE | e | 7:28 PM | | procedure are in the | | | | PDT | | results section. | + +--------+ + + + | BASIC METABOLIC | Routin | 09/01/2018 | | Results for this | | PANEL | e | 7:28 PM | | procedure are in the | | | | PDT | | results section. | + +--------+ + + + | CULTURE, BLOOD | Routin | 09/01/2018 | | Results for this | | | e | 7:27 PM | | procedure are in the | | | | PDT | | results section. | + +--------+ + + + | CULTURE, BLOOD | Routin | 09/01/2018 | | Results for this | | | e | 7:27 PM | | procedure are in the [...] +--------+ + + + | XR CHEST 1 VIEW | Routin | 08/18/2018 | | Results for this | | | e | 3:40 PM | | procedure are in the [...] + + documented in this encounter Results Protime INR (09/04/2018 6:02 AM PDT) + + + + + + | Component | Value | Ref Range | Performed | Pathologist | | | | | At | Signature | + + + + + + | Prothrombin | 28.9 (H) | 11.3 - 13.9 | [facility] | | | Time | | seconds | [facility] | | | | | [facility] | | | | | | [facility] - | | | | | | LABORATORY | | + + + + + + | INR | 2.8 (H)Comment: Usual | 0.9 - 1.1 | [facility] | | | | Oral Anticoagulation | | [facility] | | | | Range: 2.0 - | | MEDICAL | | | | 3.0High Level Oral | | CENTER - | | | | Anticoagulation Range: | | LABORATORY | | | | 2.5 - 3.5 | | | | + + + + + + + + | Specimen | + + | Blood | + + + + + + + | Performing | Address | City/State/Zipcode | Phone Number | | Organization | | | | + + + + + | [facility] | [address] | [place] | [phone] | | [facility] | | [id number] | | | - LABORATORY | | | | + + + + + CT Angiogram Pulmonary (09/03/2018 3:43 PM PDT) + + | Specimen | + + | | + + + + + | Narrative | Performed At | + + + | CT PULMONARY ANGIOGRAM 09/03/2018 3:33 PM CLINICAL HISTORY: SOB | [facility] | | with malignancy and suspected PE while on Coumadin | | | COMPARISON: Unenhanced CT from the previous day and more remote | | | imaging TECHNIQUE: Axial images are performed through the chest | | | following the uneventful intravenous administration of 55 mL | | | Omnipaque-350 contrast, with timing of the contrast bolus optimized | | | for opacification of the pulmonary arterial tree. Multiplanar | | | reformations are also performed. FINDINGS: The study is of good | | | quality, and demonstrates no visible filling defect in the pulmonary | | | arterial tree to suggest the presence of thromboembolic disease. | | | Calcified plaque is again evident in the aorta and coronary | | | arteries. The implanted left internal jugular port catheter again | | | terminates in the lower SVC. Changes of right lower lobectomy are | | | again suggested. Geographic, bandlike opacity posteriorly in the | | | mid to basilar right lung is similar in distribution but more | | | confluent compared with imaging of November 2015. Gas-filled right | | | middle lobe airways course through this region. No central airway | | | occlusion is evident although some wall thickening of the central | | | right middle lobe airways is suggested at the hilum. No suspicious | | | nodule or consolidation is evident elsewhere in the lungs. Changes | | | of centrilobular emphysema are again apparent. There is no pleural | | | or pericardial effusion or pneumothorax. No pathologic lymph node | | | enlargement is evident. ACDF hardware is partially imaged. Mild | | | depression superior T7 endplate is chronic, while mild to moderate | | | depression of the superior L1 endplate is age indeterminant. Severe | | | degenerative disc disease and chronic anterolisthesis are present at | | | T1-2, with foraminal predominant stenosis. Mild, generalized | | | heterogeneity of the bones is chronic. The gallbladder is absent. | | | A small rounded hypodensity in the superior right kidney favors a | | | cyst. Imaged upper abdomen is otherwise unremarkable. IMPRESSION | | | - 1. NO EVIDENCE OF PULMONARY EMBOLISM OR OTHER ACUTE | | | INTRATHORACIC DISEASE. 2. MORE CONFLUENT GEOGRAPHIC OPACITY IN | | | THE POSTERIOR MID TO BASILAR RIGHT LUNG COMPARED WITH IMAGING OF NOVEMBER | | | 2015, LIKELY REFLECTING AT LEAST A COMPONENT OF THERAPY RELATED SCAR | | | STATUS POST LOWER LOBECTOMY. CONSIDER INTERVAL CT SURVEILLANCE | | | AND/OR PET. NO CONCLUSIVE ADENOPATHY OR OTHER POTENTIAL EVIDENCE OF | | | RECURRENT MALIGNANCY IS APPARENT. 3. CENTRILOBULAR EMPHYSEMA. | | | Dictated and Signed by: Herminio Levi MD Electronically signed: | | | 09/03/2018 4:33 PM | | + + + + + | Procedure Note | + + | Fabián, Rad Results In - 09/03/2018 4:[address] PULMONARY ANGIOGRAM 09/03/2018 3:33 PM | | | | CLINICAL HISTORY: SOB with malignancy and suspected PE while on Coumadin | | | | COMPARISON: Unenhanced CT from the previous day and more remote imaging | | | | TECHNIQUE: Axial images are performed through the chest following the uneventful | | intravenous administration of 55 mL Omnipaque-350 contrast, with timing of the | | contrast bolus optimized for opacification of the pulmonary arterial tree. | | Multiplanar reformations are also performed. | | | | FINDINGS: The study is of good quality, and demonstrates no visible filling | | defect in the pulmonary arterial tree to suggest the presence of thromboembolic | | disease. Calcified plaque is again evident in the aorta and coronary arteries. | | The implanted left internal jugular port catheter again terminates in the lower | | SVC. Changes of right lower lobectomy are again suggested. Geographic, | | bandlike opacity posteriorly in the mid to basilar right lung is similar in | | distribution but more confluent compared with imaging of November 2015. Gas-filled | | right middle lobe airways course through this region. No central airway | | occlusion is evident although some wall thickening of the central right middle | | lobe airways is suggested at the hilum. No suspicious nodule or consolidation | | is evident elsewhere in the lungs. Changes of centrilobular emphysema are again | | apparent. There is no pleural or pericardial effusion or pneumothorax. No | | pathologic lymph node enlargement is evident. | | | | ACDF hardware is partially imaged. Mild depression superior T7 endplate is | | chronic, while mild to moderate depression of the superior L1 endplate is age | | indeterminant. Severe degenerative disc disease and chronic anterolisthesis are | | present at T1-2, with foraminal predominant stenosis. Mild, generalized | | heterogeneity of the bones is chronic. | | | | The gallbladder is absent. A small rounded hypodensity in the superior right | | kidney favors a cyst. Imaged upper abdomen is otherwise unremarkable. | | | | IMPRESSION - | | 1. NO EVIDENCE OF PULMONARY EMBOLISM OR OTHER ACUTE INTRATHORACIC DISEASE. | | | | 2. MORE CONFLUENT GEOGRAPHIC OPACITY IN THE POSTERIOR MID TO BASILAR RIGHT LUNG | | COMPARED WITH IMAGING OF NOVEMBER 2015, LIKELY REFLECTING AT LEAST A COMPONENT OF | | THERAPY RELATED SCAR STATUS POST LOWER LOBECTOMY. CONSIDER INTERVAL CT | | SURVEILLANCE AND/OR PET. NO CONCLUSIVE ADENOPATHY OR OTHER POTENTIAL EVIDENCE | | OF RECURRENT MALIGNANCY IS APPARENT. | | | | 3. CENTRILOBULAR EMPHYSEMA. | | | | Dictated and Signed by: Herminio Levi MD | | Electronically signed: 09/03/2018 4:33 PM | + + + +---------+ + + | Performing | Address | City/State/Zipcode | Phone Number | | Organization | | | | + +---------+ + + | [facility] | | | | + +---------+ + + Comprehensive Metabolic Panel (09/03/2018 5:31 AM PDT) + +---------+ + + + | Component | Value | Ref Range | Performed | Pathologist | | | | | At | Signature | + +---------+ + + + | Na | 140 | 136 - 145 | [facility] | | | | | mmol/L | [facility] | | | | | [facility] | | | | | [facility] - | | | | | | LABORATORY | | + +---------+ + + + | K | 3.5 | 3.4 - 5.1 | [facility] | | | | | mmol/L | [facility] | | | | | | [facility] | | | | | | [facility] - | | | | | | LAB[facility]ATORY | | + +---------+ + + + | Cl | 108 (H) | 98 - 107 mmol/L | [facility] | | | | | | [facility] | | | | | | [facility] | | | | | | [facility] - | | | | | | LAB[facility]ATORY | | + +---------+ + + + | CO2 | 27 | 20 - 31 mmol/L | [facility] | | | | | | [facility] | | | | | | [facility] | | | | | | [facility] - | | | | | | LAB[facility]ATORY | | + +---------+ + + + | Anion Gap | 5 | 3 - 16 mmol/L | [facility] | | | | | | [facility] | | | | | | [facility] | | | | | | [facility] - | | | | | | LAB[facility]ATORY | | + +---------+ + + + | Glucose | 93 | 60 - 106 mg/dL | [facility] | | | | | | [facility] | | | | | | [facility] | | | | | | [facility] - | | | | | | LAB[facility]ATORY | | + +---------+ + + + | BUN | 18 | 9 - 23 mg/dL | [facility] | | | | | | [facility] | | | | | | [facility] | | | | | | [facility] - | | | | | | LAB[facility]ATORY | | + +---------+ + + + | Creatinine | 1.02 | 0.55 - 1.02 | [facility] | | | | | mg/dL | [facility] | | | | | | [facility] | | | | | | [facility] - | | | | | | LABORATORY | | + +---------+ + + + | eGFR if not | 53 (L) | >=60 | [facility] | | | | | mL/min/1.73m2 | [facility] | | | [facility] | | | [facility] | | | | | | CENTER - | | | | | | LABORATORY | | + +---------+ + + + | Calcium | 8.6 (L) | 8.7 - 10.4 | [facility] | | | | | mg/dL | [facility] | | | | | | [facility] | | | | | | [facility] - | | | | | | LAB[facility]ATORY | | + +---------+ + + + | Albumin | 3.0 (L) | 3.2 - 4.8 g/dL | [facility] | | | | | | [facility] | | | | | | [facility] | | | | | | [facility] - | | | | | | LAB[facility]ATORY | | + +---------+ + + + | Bilirubin | 0.3 | 0.3 - 1.2 mg/dL | [facility] | | | Total | | | [facility] | | | | | | [facility] | | | | | | C[facility] - | | | | | | LABORATORY | | + +---------+ + + + | Total | 4.7 (L) | 5.7 - 8.2 g/dL | [facility] | | | Protein | | | [facility] | | | | | | [facility] | | | | | | C[facility] - | | | | | | LABORATORY | | + +---------+ + + + | AST | 12 | 0 - 34 U/L | [facility] | | | | | | [facility] | | | | | | [facility] | | | | | | [facility] - | | | | | | LAB[facility]ATORY | | + +---------+ + + + | ALT | 18 | 10 - 49 U/L | [facility] | | | | | | [facility] | | | | | | [facility] | | | | | | [facility] - | | | | | | LAB[facility]ATORY | | + +---------+ + + + | Alkaline | 45 (L) | 46 - 116 U/L | [facility] | | | Phosphatase | | | [facility] | | | | | | [facility] | | | | | | C[facility] - | | | | | | LAB[facility]ATORY | | + +---------+ + + + | Globulin | 1.7 (L) | 2.1 - 3.8 g/dL | [facility] | | | | | | [facility] | | | | | | [facility] | | | | | | [facility] - | | | | | | LAB[facility]ATORY | | + +---------+ + + + | Albumin/Mattie | 1.8 | 0.8 - 1.9 | [facility] | | | bulin Ratio | | | [facility] | | | | | | [facility] | | | | | | CENTER - | | | | | | LABORATORY | | + +---------+ + + + | BUN/Creatin | 17.6 | | [facility] | | | ine Ratio | | | [facility] | | | | | | [facility] | | | | | | CENTER - | | | | | | LABORATORY | | + +---------+ + + + + + | Specimen | + + | Blood | + + + + + + + | Performing | Address | City/State/Zipcode | Phone Number | | Organization | | | | + + + + + | [facility] | [address] | [place] | [phone] | | [facility] | | [id number] | | | - LABORATORY | | | | + + + + + CBC with Differential (09/03/2018 5:31 AM PDT) + + + + + + | Component | Value | Ref Range | Performed | Pathologist | | | | | At | Signature | + + + + + + | WBC | 10.8 | 4.0 - 11.0 K/uL | [facility] [...] + + + + | Hemoglobin | 9.8 (L) | 11.5 - 16.0 | [facility] | | | | | g/dL | [facility] | | | | | | [facility] | | | | | | C[facility] - | | | | | | LABORATORY | | + + + + + + | Hematocrit | 31.9 (L) | 34.0 - 47.0 % | [facility] | | | | | | [facility] | | | | | | [facility] | | | | | | C[facility] - | | | | | | LABORATORY | | + + + + + + | MCV | 93.8 | 83.0 - 101.0 fL | [facility] | | | | | | [facility] | | | | | | [facility] | | | | | | C[facility] - | | | | | | LABORATORY | | + + + + + + | MCH | 28.8 | 28.0 - 35.0 pg | [facility] | | | | | | [facility] | | | | | | [facility] | | | | | | C[facility] - | | | | | | LABORATORY | | + + + + + + | MCHC | 30.7 (L) | 32.0 - 36.0 | [facility] | | | | | g/dL | [facility] | | | | | | [facility] | | | | | | C[facility] - | | | | | | LABORATORY | | + + + + + + | RDW-CV | 19.1 (H) | <15.0 % | [facility] | | | | | | [facility] | | | | | | [facility] | | | | | | C[facility] - | | | | | | LABORATORY | | + + + + + + | RDW-SD | 64.9 (H) | 35.1 - 46.3 fL | [facility] | | | | | | [facility] | | | | | | [facility] | | | | | | C[facility] - | | | | | | LABORATORY | | + + + + + + | Platelet | 215 | 140 - 440 K/uL | [facility] | | | Count | | | [facility] | | | | | | [facility] | | | | | | CENTER - | | | | | | LABORATORY | | + + + + + + | MPV | 9.3 | 6.5 - 12.4 fL | [facility] | | | | [...] + + + + | % | 13.1 (L) | 20.0 - 45.0 % | [facility] | | | Lymphocytes | | | [facility] | | | | | | MED[facility] | | | | | | CENTER - | | | | | | LABORATORY | | + + + + + + | % Monocytes | 9.3 | 4.0 - 12.0 % | [facility] | | | | | | [facility] | | | | | | [facility] | | | | | | CENTER - | | | | | | LABORATORY | | + + + + + + | % | 0.8 | 0.0 - 5.0 % | [facility] | | | Eosinophils | | | [facility] | | | | | | MEDICAL | | | | | | CENTER - | | | | | | LABORATORY | | + + + + + + | % Basophils | 0.1 | 0.0 - 1.0 % | [facility] | | | | | | [facility] | | | | | | [facility] | | | | | | CENTER - | | | | | | LABORATORY | | + + + + + + | % Immature | 1.1 (H)Comment: | 0.0 - 0.4 % | [facility] | | | Granulocyte | Preliminary studIes have | | [facility] | | | s | indicated the IG% | | MEDICAL | | | | and/or IG# show promise | | CENTER - | | | | as an early screen for | | LABORATORY | | | | infection. | | | | + + + + + + | Absolute | 8.14 | 1.80 - 8.50 | [facility] | | | Neutrophils | | K/uL | [facility] | | | | | | [facility] | | | | | | CENTER - | | | | | | LABORATORY | | + + + + + + | Absolute | 1.41 | 0.60 - 3.20 | [facility] | | | Lymphocytes | | K/uL | [facility] | | | | | | [facility] | | | | | | CENTER - | | | | | | LABORATORY | | + + + + + + | Absolute | 1.00 | 0.00 - 1.00 | [facility] | | | Monocytes | | K/uL | [facility] | | | | | | [facility] | | | | | | CENTER - | | | | | | LABORATORY | | + + + + + + | Absolute | 0.09 | 0.00 - 0.40 | [facility] | | | Eosinophils | | K/uL | [facility] | | | | | | [facility] | | | | | | CENTER - | | | | | | LABORATORY | | + + + + + + | Absolute | 0.01 | 0.00 - 0.10 | [facility] | | | Basophils | | K/uL | [facility] | | | | | | [facility] | | | | | | CENTER - | | | | | | LABORATORY | | + + + + + + | Absolute | 0.12 (H) | 0.00 - 0.03 | [facility] | | | Immature | | K/uL | [facility] | | | Granulocyte | | | MEDICAL | | | s | | | CENTER - | | | | | | LABORATORY | | + + + + + + | % nRBC | 0 | 0 - 2 per 100 | [facility] | | | | | WBCs | [facility] | | | | | | MEDICAL | | | | | | CENTER - | | | | | | LABORATORY | | + + + + + + | Absolute | 0.00 | 0.00 - 0.01 | [facility] | | | nRBC | | K/uL | [facility] | [...] + | [facility] | [address] | [place] | [phone] | | [facility] | | [id number] | | | - LABORATORY | | | | + + + + + Protime INR (09/03/2018 5:31 AM PDT) + + + + + + | Component | Value | Ref Range | Performed | Pathologist | | | | | At | Signature | + + + + + + | Prothrombin | 30.2 (H) | 11.3 - 13.9 | [facility] | | | Time | | seconds | [facility] | | | | | | MEDICAL | | | | | | CENTER - | | | | | | LABORATORY | | + + + + + + | INR | 2.9 (H)Comment: Usual | 0.9 - 1.1 | [facility] | | | | Oral Anticoagulation | | [facility] | | | | Range: 2.0 - | | MEDICAL | | | | 3.0High Level Oral | | CENTER - | | | | Anticoagulation Range: | | LABORATORY | | | | 2.5 - 3.5 | | | | + + + + + + + + | Specimen | + + | Blood | + + + + + + + | Performing | Address | City/State/Zipcode | Phone Number | | Organization | | | | + + + + + | [facility] | [address] | [place] | [phone] | | [facility] | | [address] | | | - LABORATORY | | | | + + + + + CT Chest wo Contrast (09/02/2018 8:40 PM PDT) + + | Specimen | + + | | + + + + + | Narrative | Performed At | + + + | CT CHEST WITHOUT CONTRAST CLINICAL INFORMATION: Follow up | [facility] | | ill-defined hazy opacities at the right mid to lower lung. | | | COMPARISON: XR CHEST PA AND LATERAL (09/01/2018); CT CHEST WO CONTRAST | | | (11/30/2015); CT CHEST W CONTRAST (03/28/2015); XR CHEST PA AND LATERAL | | | (10/22/2017); PROCEDURE: Axial images through the chest. | | | Multiplanar reconstructions. At least one of the following CT dose | | | optimization techniques were used: Automated exposure control; | | | Adjustment of mA and/or kV according to patient size; Use of | | | iterative reconstruction technique. FINDINGS: Compared with most | | | recent CT of 11/30/2015, enlarging right infrahilar soft tissue mass, | | | measuring approximately 4.8 x 2.6 x 3.1 cm (reference axial image 50 | | | series 2, and coronal image 40 series 602). 2 mm nodule in the left | | | major fissure which is stable from 2016. Somewhat extensive | | | thickening is seen in the superior segment of the right lower lobe | | | with worsening soft tissue/mass like opacification which extends to | | | the pleural surface. This mass like soft tissue thickening encases the | | | right basilar bronchi causing areas of luminal irregularity. Bronchi | | | are thought to remain patent. Background of extensive coronary | | | artery calcifications. Heart is normal in size. No evidence of | | | mediastinal lymphadenopathy. There is suggestion of a few enlarged | | | right hilar lymph nodes. Aorta and pulmonary arteries are normal in | | | caliber. No evidence of axillary adenopathy. Left chest wall antonieta | | | catheter tip terminates in the superior vena cava. Hepatic | | | steatosis. No suspicious or acute abdominal findings. Diffusely | | | heterogeneous appearance of the bone marrow which is unchanged since | | | 2016. Stable densely sclerotic foci involving the posterior left ninth | | | rib. No new suspicious lytic or blastic lesion. Chronic superior | | | endplate compression deformity fracture of L1 which is thought to be | | | mildly worsened since 11/06/2016. Superior endplate compression | | | deformity fracture of T7. Grade 1 anterolisthesis of T1 over T2, | | | chronic. Severe degenerative disease of the level. IMPRESSION- 1. | | | Exam somewhat limited without IV contrast. Compared with most | | | recent CT of 11/30/2015, enlarging right infrahilar soft tissue mass | | | with background of right infrahilar/right lower lobe bandlike | | | scarring/soft tissue thickening which extends to the lung periphery, | | | measuring approximately 4.8 x 2.6 x 3.1 cm. Appearance is suspicious | | | for lung cancer recurrence with lymphangitic component considered. | | | 2. Mild superior endplate compression deformity of L1 vertebra, new | | | compared with 2016 exam. This was questionably visualized in 2017 but | | | appears slightly worsened since that time. 3. Chronic superior | | | endplate compression deformity fracture at T7. 4. Similar somewhat | | | extensive patchy and heterogeneous appearance of the bone marrow | | | likely related to posttreatment changes. No convincingly new | | | suspicious lytic or blastic lesion on today's examination. A | | | preliminary report was sent without significant discrepancy. | | | Dictated and Signed by: Yovanny Chin MD Electronically signed: | | | 09/03/2018 10:17 AM | | + + + + + | Procedure Note | + + | Fabián, Rad Results In - 09/03/2018 10:20 AM PDT | | CT CHEST WITHOUT CONTRAST | | | | CLINICAL INFORMATION: | | Follow up ill-defined hazy opacities at the right mid to lower lung. | | | | COMPARISON: | | XR CHEST PA AND LATERAL (09/01/2018); CT CHEST WO CONTRAST (11/30/2015); CT | | CHEST W CONTRAST (03/28/2015); XR CHEST PA AND LATERAL (10/22/2017); | | | | PROCEDURE: | | Axial images through the chest. Multiplanar reconstructions. | | | | At least one of the following CT dose optimization techniques were | | used: Automated exposure control; Adjustment of mA and/or kV according | | to patient size; Use of iterative reconstruction technique. | | | | FINDINGS: | | Compared with most | | recent CT of 11/30/2015, enlarging right infrahilar soft tissue mass, measuring | | approximately 4.8 x 2.6 x 3.1 cm (reference axial image 50 series 2, and coronal | | image 40 series 602). 2 mm nodule in the left major fissure which is stable from | | 2016. Somewhat extensive thickening is seen in the superior segment of the right | | lower lobe with worsening soft tissue/mass like opacification which extends to | | the pleural surface. This mass like soft tissue thickening encases the right | | basilar bronchi causing areas of luminal irregularity. Bronchi are thought to | | remain patent. | | | | Background of extensive coronary artery calcifications. Heart is normal in size. | | No evidence of mediastinal lymphadenopathy. There is suggestion of a few | | enlarged right hilar lymph nodes. Aorta and pulmonary arteries are normal in | | caliber. No evidence of axillary adenopathy. Left chest wall antonieta catheter tip | | terminates in the superior vena cava. | | | | Hepatic steatosis. No suspicious or acute abdominal findings. | | | | Diffusely heterogeneous appearance of the bone marrow which is unchanged since | | 2016. Stable densely sclerotic foci involving the posterior left ninth rib. No | | new suspicious lytic or blastic lesion. Chronic superior endplate compression | | deformity fracture of L1 which is thought to be mildly worsened since 11/06/2016. | | Superior endplate compression deformity fracture of T7. Grade 1 anterolisthesis | | of T1 over T2, chronic. Severe degenerative disease of the level. | | | | IMPRESSION- | | 1. Exam somewhat limited without IV contrast. Compared with most recent CT of | | 11/30/2015, enlarging right infrahilar soft tissue mass with background of right | | infrahilar/right lower lobe bandlike scarring/soft tissue thickening which | | extends to the lung periphery, measuring approximately 4.8 x 2.6 x 3.1 cm. | | Appearance is suspicious for lung cancer recurrence with lymphangitic component | | considered. | | 2. Mild superior endplate compression deformity of L1 vertebra, new compared | | with 2016 exam. This was questionably visualized in 2017 but appears slightly | | worsened since that time. | | 3. Chronic superior endplate compression deformity fracture at T7. | | 4. Similar somewhat extensive patchy and heterogeneous appearance of the bone | | marrow likely related to posttreatment changes. No convincingly new suspicious | | lytic or blastic lesion on today's examination. | | | | | | A preliminary report was sent without significant discrepancy. | | | | Dictated and Signed by: Yovanny Chin MD | | Electronically signed: 09/03/2018 10:17 AM | + + + +---------+ + + | Performing | Address | City/State/Zipcode | Phone Number | | Organization | | | | + +---------+ + + | [facility] | | | | + +---------+ + + Vancomycin Level (09/02/2018 7:42 PM PDT) + +-------+ + + + | Component | Value | Ref Range | Performed | Pathologist | | | | | At | Signature | + +-------+ + + + | Date of | | | [facility] | | | Last Dose | | | [facility] | [facility] | | [facility] | | | | | | [facility] - | | | | | | LABORATORY | | + +-------+ + + + | Time of | | | [facility] | | | Last Dose | | | [facility] | | | [facility] | | [facility] | | | | | | [facility] - | | | | | | LABORATORY | | + +-------+ + + + | Vancomycin | 16.0 | 5.0 - 40.0 | [facility] | | | Random | | ug/mL | [facility] | | | | [...] + | [facility] | [address] | [place] | [phone] | | [facility] | | [address] | | | - LABORATORY | | | | + + + + + Protime INR (09/02/2018 3:10 AM PDT) + + + + + + | Component | Value | Ref Range | Performed | Pathologist | | | | | At | Signature | + + + + + + | Prothrombin | 31.6 (H) | 11.3 - 13.9 | [facility] | | | Time | | seconds | [facility] | | | | | | MEDICAL | | | | | | CENTER - | | | | | | LABORATORY | | + + + + + + | INR | 3.1 (H)Comment: Usual | 0.9 - 1.1 | [facility] | | | | Oral Anticoagulation | | [facility] | | | | Range: 2.0 - | | MEDICAL | | | | 3.0High Level Oral | | CENTER - | | | | Anticoagulation Range: | | LABORATORY | | | | 2.5 - 3.5 | | | | + + + + + + + + | Specimen | + + | Blood | + + + + + + + | Performing | Address | City/State/Zipcode | Phone Number | | Organization | | | | + + + + + | [facility] | [address] | [place] | [phone] | | [facility] | | [address] | | | - LABORATORY | | | | + + + + + CBC with Differential (09/02/2018 3:10 AM PDT) + + + + + + | Component | Value | Ref Range | Performed | Pathologist | | | | | At | Signature | + + + + + + | WBC | 10.3 | 4.0 - 11.0 K/uL | [facility] | | | | | | [facility] | | | | | | [facility] | | | | | | CENTER - | | | | | | LABORATORY | | + + + + + + | RBC | 3.85 | 3.70 - 5.20 | [facility] | [...] + + + + | Hematocrit | 36.9 | 34.0 - 47.0 % | [facility] | | | | | | [facility] | | | | | | [facility] | | | | | | CENTER - | | | | | | LABORATORY | | + + + + + + | MCV | 95.8 | 83.0 - 101.0 fL | [facility] | | | | | | [facility] | | | | | | MED[facility] | | | | | | CENTER - | | | | | | LABORATORY | | + + + + + + | MCH | 28.6 | 28.0 - 35.0 pg | [facility] | | | | | | [facility] | | | | | | MEDICAL | | | | | | CENTER - | | | | | | LABORATORY | | + + + + + + | MCHC | 29.8 (L) | 32.0 - 36.0 | [facility] | | | | | g/dL | [facility] | | | | | | MEDICAL | | | | | | CENTER - | | | | | | LABORATORY | | + + + + + + | RDW-CV | 19.2 (H) | <15.0 % | [facility] | | | | | | [facility] | | | | | | MEDICAL | | | | | | CENTER - | | | | | | LABORATORY | | + + + + + + | RDW-SD | 67.3 (H) | 35.1 - 46.3 fL | [facility] | | | | | | [facility] | | | | | | MEDICAL | | | | | | CENTER - | | | | | | LABORATORY | | + + + + + + | Platelet | 234 | 140 - 440 K/uL | [facility] | | | Count | | | [facility] | | | | | | [facility] | | | | | | CENTER - | | | | | | LABORATORY | | + + + + + + | MPV | 9.3 | 6.5 - 12.4 fL | [facility] | | | | | | [facility] | | | | | | [facility]ICAL | | | | | | CENTER - | | | | | | LABORATORY | | + + + + + + | % | 94.0 (H) | 45.0 - 82.0 % | [facility] | | | Neutrophils | | | [facility] | | | | | | MEDICAL | | | | | | CENTER - | | | | | | LABORATORY | | + + + + + + | % | 3.2 (L) | 20.0 - 45.0 % | [facility] | | | Lymphocytes | | | [facility] | | | | | | MEDICAL | | | | | | CENTER - | | | | | | LABORATORY | | + + + + + + | % Monocytes | 1.7 (L) | 4.0 - 12.0 % | [facility] | | | | | | [facility] | | | | | | MEDICAL | | | | | | CENTER - | | | | | | LABORATORY | | + + + + + + | % | 0.0 | 0.0 - 5.0 % | [facility] | | | Eosinophils | | | [facility] | | | | | | MEDICAL | | | | | | CENTER - | | | | | | LABORATORY | | + + + + + + | % Basophils | 0.2 | 0.0 - 1.0 % | [facility] | | | | | | [facility] | | | | | | MEDICAL | | | | | | CENTER - | | | | | | LABORATORY | | + + + + + + | % Immature | 0.9 (H)Comment: | 0.0 - 0.4 % | [facility] | | | Granulocyte | Preliminary studIes have | | [facility] | | | s | indicated the IG% | | MEDICAL | | | | and/or IG# show promise | | CENTER - | | | | as an early screen for | | LABORATORY | | | | infection. | | | | + + + + + + | Absolute | 9.71 (H) | 1.80 - 8.50 | [facility] | | | Neutrophils | | K/uL | [facility] | | | | | | MEDICAL | | | | | | CENTER - | | | | | | LABORATORY | | + + + + + + | Absolute | 0.33 (L) | 0.60 - 3.20 | [facility] | | | Lymphocytes | | K/uL | [facility] | | | | | | MEDICAL | | | | | | CENTER - | | | | | | LABORATORY | | + + + + + + | Absolute | 0.18 | 0.00 - 1.00 | [facility] | [...] + + + + | Absolute | 0.02 | 0.00 - 0.10 | [facility] | | | Basophils | | K/uL | [facility] | | | | | | [facility] | | | | | | [facility] - | | | | | | LABORATORY | | + + + + + + | Absolute | 0.09 (H) | 0.00 - 0.03 | [facility] | | | Immature | | K/uL | [facility] | | | Granulocyte | | | MEDICAL | | | s | | | CENTER - | | | | | | LABORATORY | | + + + + + + | % nRBC | 0 | 0 - 2 per 100 | [facility] | | | | | WBCs | [facility] | | | | | | [facility] | | | | | | CENTER - | | | | | | LABORATORY | | + + + + + + | Absolute | 0.00 | 0.00 - 0.01 | [facility] | | | nRBC | | K/uL | [facility] | [...] [address] | [place] | [phone] | | [facility] | | [address] | | | - LABORATORY | | | | + + + + + Basic Metabolic Panel (09/02/2018 3:10 AM PDT) + +---------+ + + + | Component | Value | Ref Range | Performed | Pathologist | | | | | At | Signature | + +---------+ + + + | Na | 139 | 136 - 145 | [facility] | | | | | mmol/L | [facility] | | | | | | [facility] | | | | | | CENTER - | | | | | | LABORATORY | | + +---------+ + + + | K | 3.4 | 3.4 - 5.1 | [facility] | | | | | mmol/L | [facility] | | [facility] | [facility] | | | | | | CENTER - | | | | | | LABORATORY | | + +---------+ + + + | Cl | 104 | 98 - 107 mmol/L | [facility] | | | | | | [facility] | | | [facility] | | [facility] | | | | | | CENTER - | | | | | | LABORATORY | | + +---------+ + + + | CO2 | 29 | 20 - 31 mmol/L | [facility] | | | | | | [facility] | | | | | | [facility] | | | | | | CENTER - | | | | | | LABORATORY | | + +---------+ + + + | Anion Gap | 6 | 3 - 16 mmol/L | [facility] | | | | | | [facility] | | | | | | [facility] | | | | | | CENTER - | | | | | | LABORATORY | | + +---------+ + + + | Glucose | 165 (H) | 60 - 106 mg/dL | [facility] | | | | | | [facility] | | | | | | [facility] | | | | | | CENTER - | | | | | | LABORATORY | | + +---------+ + + + | BUN | 17 | 9 - 23 mg/dL | [facility] | | | | | | [facility] | | | | | | MEDICAL | | | | | | CENTER - | | | | | | LABORATORY | | + +---------+ + + + | Creatinine | 0.92 | 0.55 - 1.02 | [facility] | | | | | mg/dL | [facility] | | | | | | [facility] | | | | | | CENTER - | | | | | | LABORATORY | | + +---------+ + + + | eGFR if not | 60 | >=60 | [facility] | | | | | mL/min/1.73m2 | [facility] | | | [facility] | | | MEDICAL | | | | | | CENTER - | | | | | | LABORATORY | | + +---------+ + + + | Calcium | 8.2 (L) | 8.7 - 10.4 | [facility] | | | | | mg/dL | [facility] | | | | | | [facility] | | | | | | CENTER - | | | | | | LABORATORY | | + +---------+ + + + | BUN/Creatin | 18.5 | | [facility] | | | ine Ratio | | | [facility] | | | | | | [facility] | | | | | | CENTER - | | | | | | LABORATORY | | + +---------+ + + + + + | Specimen | + + | Blood | + + + + + + + | Performing | Address | City/State/Zipcode | Phone Number | | Organization | | | | + + + + + | [facility] | [address] | [place] | [phone] | | [facility] | | [address] | | | - LABORATORY | | | | + + + + + Protime INR (09/01/2018 9:00 PM PDT) + + + + + + | Component | Value | Ref Range | Performed | Pathologist | | | | | At | Signature | + + + + + + | Prothrombin | 34.3 (H) | 11.3 - 13.9 | [facility] | | | Time | | seconds | [facility] | | | | | | MEDICAL | | | | | | CENTER - | | | | | | LABORATORY | | + + + + + + | INR | 3.5 (H)Comment: Usual | 0.9 - 1.1 | [facility] | | | | Oral Anticoagulation | | [facility] | | | | Range: 2.0 - | | MEDICAL | | | | 3.0High Level Oral | | CENTER - | | | | Anticoagulation Range: | | LABORATORY | | | | 2.5 - 3.5 | | | | + + + + + + + + | Specimen | + + | Blood | + + + + + + + | Performing | Address | City/State/Zipcode | Phone Number | | Organization | | | | + + + + + | [facility] | [address] | [place] | [phone] | | [facility] | | [address] | | | - LABORATORY | | | | + + + + + Culture, MRSA (09/01/2018 8:46 PM PDT) + + + + + + | Component | Value | Ref Range | Performed | Pathologist | | | | | At | Signature | + + + + + + | Culture | Negative for MRSA by | | [facility] | | | | chromogenic agar method | | [facility] | | | | | | [facility]ICAL | | | | | | CENTER - | | | | | | LABORATORY | | + + + + + + + + | Specimen | + + | Tissue - Both | | anterior nares (body | | structure) | + + + + + + + | Performing | Address | City/State/Zipcode | Phone Number | | Organization | | | | + + + + + | [facility] | [address] | [place] | [phone] | | [facility] | | [address] | | | - LABORATORY | | | | + + + + + 1,3 Wmnz-G-Vcfjis (09/01/2018 7:28 PM PDT) + + + + + + | Component | Value | Ref Range | Performed | Pathologist | | | | | At | Signature | + + + + + + | Result | <31Comment: | <80 pg/mL | [facility] | | | | Interpretation: The | | LAB [facility] | | | | Fungitell assay does not | | - [facility] | | | | detectcertain fungal | | | | | | species such as the | | | | | | genus | | | | | | Cryptococcus(Carmelina et | | | | | | al. 1990) which produces | | | | | | very low levels | | | | | | of(1-3)-Lctc-E-Bbemys. | | | | | | The assay also does not | | | | | | detect theZygomycetes | | | | | | such as Absidia, Mucor | | | | | | and Rhizopus (Mitsuyaet | | | | | | al. 1993) which are not | | | | | | known to | | | | | | produce(1-3)-Beta-D-Gluc | | | | | | an. In addition, the | | | | | | yeast phase | | | | | | ofBlastomyces | | | | | | dermatitidis produces | | | | | | little(1-3)-Zscy-O-Xmavh | | | | | | n and may not be | | | | | | detected by the | | | | | | assay(Lety et al. | | | | | | 2006).Reference | | | | | | Range:Less than 60 | | | | | | pg/mL. Glucan values of | | | | | | less than 60 pg/mLare | | | | | | interpreted as | | | | | | negative.Glucan values | | | | | | of 60 to 79 pg/mL are | | | | | | interpreted | | | | | | asindeterminate, and | | | | | | suggest a possible | | | | | | fungal | | | | | | infection.Additional | | | | | | sampling and testing of | | | | | | sera is required | | | | | | tointerpret the | | | | | | results.Glucan values of | | | | | | greater than or equal | | | | | | to 80 pg/mL | | | | | | areinterpreted as | | | | | | positive.Due to the | | | | | | potential for | | | | | | environmental | | | | | | contamination | | | | | | whentransferred to | | | | | | pour-off tubes, which | | | | | | can lead to | | | | | | falsepositive results, | | | | | | interpret positive | | | | | | results from | | | | | | samplesprovided in | | | | | | pour-off tubes with | | | | | | caution. Results | | | | | | shouldbe used in | | | | | | conjunction with | | | | | | clinical findings, and | | | | | | shouldnot form the sole | | | | | | basis for a diagnosis or | | | | | | treatmentdecision. The | | | | | | Fungitell test is | | | | | | approved or cleared for | | | | | | invitro diagnostic use | | | | | | by the [place] Food and | | | | | | DrugAdministration. | | | | | | Modifications to the | | | | | | approved packageinsert | | | | | | have been made and the | | | | | | performance | | | | | | characteristicsfor these | | | | | | modifications were | | | | | | determined by | | | | | | [facility].If | | | | | | sample result is greater | | | | | | than 500 pg/mL, | | | | | | physician mayorder a | | | | | | titer of the sample. | | | | | | Please contact | | | | | | [facility] if you | | | | | | would like to order a | | | | | | retest of thissample to | | | | | | obtain an actual value. | | | | | | Samples are held for | | | | | | 1week after initial | | | | | | testing date. | | | | + + + + + + + + | Specimen | + + | Blood | + + + + + | Narrative | Performed At | + + + | Performed at: 01 - [facility] [employer] [address], | REFERENCE LAB | | [place] [id number] Beading Machine Operator: Keyana Henderson PhD, | [facility] | | Phone: [phone] | | + + + + + + + + | Performing | Address | City/State/Zipcode | Phone Number | | Organization | | | | + + + + + | REFERENCE LAB | [address] | [place] [address] | [phone] | | [facility] | [address] | | | + + + + + Lactate Dehydrogenase (09/01/2018 7:28 PM PDT) + +---------+ + + + | Component | Value | Ref Range | Performed | Pathologist | | | | | At | Signature | + +---------+ + + + | LDH TOTAL | 299 (H) | 120 - 246 U/L | [facility] | | | | | | [facility] | | | | | | MEDICAL | | | | | | CENTER - | | | | | | LABORATORY | | + +---------+ + + + + + | Specimen | + + | Blood | + + + + + + + | Performing | Address | City/State/Zipcode | Phone Number | | Organization | | | | + + + + + | [facility] | [address] | [place] | [phone] | | [facility] | | [address] | | | - LABORATORY | | | | + + + + + Procalcitonin (09/01/2018 7:28 PM PDT) + + + + + + | Component | Value | Ref Range | Performed | Pathologist | | | | | At | Signature | + + + + + + | Procalciton | <0.05 | <=0.50 ng/mL | [facility] | | | in | | | [facility] | | | | | | MEDICAL | | | | | | CENTER - | | | | | | LABORATORY | | + + + + + + | Comment | Comment: < 0.50 | | [facility] | | | | ng/mL:Procalcitonin | | [facility] | | | | levels below 0.50 ng/mL | | MEDICAL | | | | on the first day of | | CENTER - | | | | admission represents a | | LABORATORY | | | | low risk for progression | | | | | | to severe sepsis and/or | | | | | | septic shock, however | | | | | | these do not exclude an | | | | | | infection, because | | | | | | localized infections | | | | | | (without systemic signs) | | | | | | may also be associated | | | | | | with such low levels. | | | | | | > 2.00 | | | | | | ng/mL:Procalcitonin | | | | | | levels above 2.00 ng/mL | | | | | | on the first day of | | | | | | admission represents a | | | | | | high risk for | | | | | | progression to severe | | | | | | sepsis and/or septic | | | | | | shock. If the | | | | | | procalcitonin | | | | | | measurement is performed | | | | | | shortly after the | | | | | | systemic infection | | | | | | process has started | | | | | | (usually less than 6 | | | | | | hours), these values may | | | | | | still be low. As | | | | | | various non-infectious | | | | | | conditions are known to | | | | | | induce procalcitonin as | | | | | | well, procalcitonin | | | | | | levels between 0.50 | | | | | | ng/mL and 2.00 ng/mL | | | | | | should be reviewed | | | | | | carefully to take into | | | | | | account the specific | | | | | | clinical background and | | | | | | condition(s) of the | | | | | | individual patient. | | | | + + + + + + + + | Specimen | + + | Blood | + + + + + + + | Performing | Address | City/State/Zipcode | Phone Number | | Organization | | | | + + + + + | [facility] | [address] | [place] | [phone] | | [facility] | | [address] | | | - LABORATORY | | | | + + + + + Basic Metabolic Panel (09/01/2018 7:28 PM PDT) + +---------+ + + + | Component | Value | Ref Range | Performed | Pathologist | | | | | At | Signature | + +---------+ + + + | Na | 141 | 136 - 145 | [facility] | | | | | mmol/L | [facility] | | | | | | MEDICAL | | | | | | CENTER - | | | | | | LABORATORY | | + +---------+ + + + | K | 3.0 (L) | 3.4 - 5.1 | [facility] | | | | | mmol/L | [facility] | | | | | | MEDICAL | | | | | | CENTER - | | | | | | LABORATORY | | + +---------+ + + + | Cl | 107 | 98 - 107 mmol/L | [facility] | | | | | | [facility] | | | | | | MEDICAL | | | | | | CENTER - | | | | | | LABORATORY | | + +---------+ + + + | CO2 | 27 | 20 - 31 mmol/L | [facility] | | | | | | [facility] | | | [facility] | | MEDICAL | | | | | | CENTER - | | | | | | LABORATORY | | + +---------+ + + + | Anion Gap | 7 | 3 - 16 mmol/L | [facility] | | | | | | [facility] | | | | | | MEDICAL | | | | | | CENTER - | | | | | | LABORATORY | | + +---------+ + + + | Glucose | 80 | 60 - 106 mg/dL | [facility] | | | | | | [facility] | | | | | | MEDICAL | | | | | | CENTER - | | | | | | LABORATORY | | + +---------+ + + + | BUN | 19 | 9 - 23 mg/dL | [facility] | | | | | | [facility] | | | | | | MEDICAL | | | | | | CENTER - | | | | | | LABORATORY | | + +---------+ + + + | Creatinine | 0.91 | 0.55 - 1.02 | [facility] | | | | | mg/dL | [facility] | | | | | | MEDICAL | | | | | | CENTER - | | | | | | LABORATORY | | + +---------+ + + + | eGFR if not | 60 | >=60 | [facility] | | | | | mL/min/1.73m2 | [facility] | | | [facility] | | | MEDICAL | | | | | | CENTER - | | | | | | LABORATORY | | + +---------+ + + + | Calcium | 8.2 (L) | 8.7 - 10.4 | [facility] | | | | | mg/dL | [facility] | | | | | | MEDICAL | | | | | | CENTER - | | | | | | LABORATORY | | + +---------+ + + + | BUN/Creatin | 20.9 | | [facility] | | | ine Ratio | | | [facility] | | | | | | MEDICAL | | | | | | CENTER - | | | | | | LABORATORY | | + +---------+ + + + + + | Specimen | + + | Blood | + + + + + + + | Performing | Address | City/State/Zipcode | Phone Number | | Organization | | | | + + + + + | [facility] | [address] | [place] | [phone] | | [facility] | | [address] | | | - LABORATORY | | | | + + + + + CBC with Differential (09/01/2018 7:28 PM PDT) + + + + + + | Component | Value | Ref Range | Performed | Pathologist | | | | | At | Signature | + + + + + + | WBC | 10.7 | 4.0 - 11.0 K/uL | [facility] | | | | | | [facility] | | | | | | MEDICAL | | | | | | CENTER - | | | | | | LABORATORY | | + + + + + + | RBC | 4.09 | 3.70 - 5.20 | [facility] | | | | | M/uL | [facility] | | | | | | MEDICAL | | | | | | CENTER - | | | | | | LABORATORY | | + + + + + + | Hemoglobin | 11.9 | 11.5 - 16.0 | [facility] | | | | | g/dL | [facility] | | | | | | MEDICAL | | | | | | CENTER - | | | | | | LABORATORY | | + + + + + + | Hematocrit | 38.8 | 34.0 - 47.0 % | [facility] | | | | | | [facility] | | | | | | MEDICAL | | | | | | CENTER - | | | | | | LABORATORY | | + + + + + + | MCV | 94.9 | 83.0 - 101.0 fL | [facility] | | | | | | [facility] | | | | | | MEDICAL | | | | | | CENTER - | | | | | | LABORATORY | | + + + + + + | MCH | 29.1 | 28.0 - 35.0 pg | [facility] | | | | | | [facility] | | | | | | MEDICAL | | | | | | CENTER - | | | | | | LABORATORY | | + + + + + + | MCHC | 30.7 (L) | 32.0 - 36.0 | [facility] | | | | | g/dL | [facility] | | | | | | MEDICAL | | | | | | CENTER - | | | | | | LABORATORY | | + + + + + + | RDW-CV | 19.3 (H) | <15.0 % | [facility] | | | | | | [facility] | | | | | | MEDICAL | | | | | | CENTER - | | | | | | LABORATORY | | + + + + + + | RDW-SD | 66.4 (H) | 35.1 - 46.3 fL | [facility] | | | | | | [facility] | | | | | | MEDICAL | | | | | | CENTER - | | | | | | LABORATORY | | + + + + + + | Platelet | 228 | 140 - 440 K/uL | [facility] | | | Count | | | [facility] | | | | | | MEDICAL | | | | | | CENTER - | | | | | | LABORATORY | | + + + + + + | MPV | 8.9 | 6.5 - 12.4 fL | [facility] | | | | | | [facility] | | | | | | MEDICAL | | | | | | CENTER - | | | | | | LABORATORY | | + + + + + + | % | 80.0 | 45.0 - 82.0 % | [facility] | | | Neutrophils | | | [facility] | | | | | | MEDICAL | | | | | | CENTER - | | | | | | LABORATORY | | + + + + + + | % | 9.9 (L) | 20.0 - 45.0 % | [facility] | | | Lymphocytes | | | [facility] | | | | | | MEDICAL | | | | | | CENTER - | | | | | | LABORATORY | | + + + + + + | % Monocytes | 7.8 | 4.0 - 12.0 % | [facility] [...] + + + + + | % Immature | 1.3 (H)Comment: | 0.0 - 0.4 % | [facility] | | | Granulocyte | Preliminary studIes have | | [facility] | | | s | indicated the IG% | | MEDICAL | | | | and/or IG# show promise | | CENTER - | | | | as an early screen for | | LABORATORY | | | | infection. | | | | + + + + + + | Absolute | 8.55 (H) | 1.80 - 8.50 | [facility] | | | Neutrophils | | K/uL | [facility] | | | | | | MEDICAL | | | | | | CENTER - | | | | | | LABORATORY | | + + + + + + | Absolute | 1.06 | 0.60 - 3.20 | [facility] | | | Lymphocytes | | K/uL | [facility] | | | | | | MEDICAL | | | | | | CENTER - | | | | | | LABORATORY | | + + + + + + | Absolute | 0.83 | 0.00 - 1.00 | [facility] | | | Monocytes | | K/uL | [facility] | | | | | | MEDICAL | | | | | | CENTER - | | | | | | LABORATORY | | + + + + + + | Absolute | 0.08 | 0.00 - 0.40 | [facility] | | | Eosinophils | | K/uL | [facility] | | | | | | MEDICAL | | | | | | CENTER - | | | | | | LABORATORY | | + + + + + + | Absolute | 0.03 | 0.00 - 0.10 | [facility] | | | Basophils | | K/uL | [facility] | | | | | | MEDICAL | | | | | | CENTER - | | | | | | LABORATORY | | + + + + + + | Absolute | 0.14 (H) | 0.00 - 0.03 | [facility] | | | Immature | | K/uL | [facility] | | | Granulocyte | | | MEDICAL | | | s | | | CENTER - | | | | | | LABORATORY | | + + + + + + | % nRBC | 0 | 0 - 2 per 100 | [facility] | | | | | WBCs | [facility] | | | | | | MEDICAL | | | | | | CENTER - | | | | | | LABORATORY | | + + + + + + | Absolute | 0.02 (H)Comment: | 0.00 - 0.01 | [facility] | | | nRBC | Presence of any NRBC's | K/uL | [facility] | | | | in adults is clinically | | MEDICAL | | | | significant | | CENTER - | | | | | | LABORATORY | | + + + + + + + + | Specimen | + + | Blood | + + + + + + + | Performing | Address | City/State/Zipcode | Phone Number | | Organization | | | | + + + + + | [facility] | [address] | [place] | [phone] | | [facility] | | [address] | | | - LABORATORY | | | | + + + + + Culture, Blood (09/01/2018 7:27 PM PDT) + + + + + + | Component | Value | Ref Range | Performed | Pathologist | | | | | At | Signature | + + + + + + | Culture | No growth after 5 days | | [facility] | | | | incubation. | | [facility] | | | [...] [address] | [place] | [phone] | | [facility] | | [address] | | | - LABORATORY | | | | + + + + + Culture, Blood (09/01/2018 7:27 PM PDT) + + + + + + | Component | Value | Ref Range | Performed | Pathologist | | | | | At | Signature | + + + + + + | Culture | No growth after 5 days | | [facility] | | | | incubation. 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) | + + | Radiation pneumonitis (HCC) Acute pulmonary manifestations due to radiation | + + | 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) | + + | Rheumatoid arthritis, involving unspecified site, unspecified rheumatoid factor | | presence (HCC) | + + | COPD exacerbation (HCC) Obstructive chronic bronchitis with exacerbation | + + | History of pulmonary embolism Personal history of pulmonary embolism | + + | Squamous cell carcinoma of right lung (HCC) | + + | Anxiety Anxiety state, unspecified | + + | Depression, unspecified depression type | + + | Hypothyroidism, unspecified type | + + | Gastroesophageal reflux disease, esophagitis presence not specified | + + | Swelling of lower extremity | + + | Hypertension Unspecified essential hypertension | + + documented in this encounter Administered Medications + +--------+ +--------+------+------+ | Medication Order | MAR | Action | Dose | Rate | Site | | | Action | Date | | | | + +--------+ +--------+------+------+ | acetaminophen (TYLENOL) tablet | Given | 09/04/19 | 650 mg | | | | 650 mg 650 mg, Oral, EVERY | | 19 9:15 | | | | | HOURS PRN, Pain, or fever >= 38.6 | | PM PDT | | | | | C (101.5 F), Starting 09/01/18 | | | | | | | at 1907 | | | | | | + +--------+ +--------+------+------+ +-------+ +--------+---+---+ | Given | 09/04/19 | 650 mg | | | | | 19 1:54 | | | | | | PM PDT | | | | +-------+ +--------+---+---+ +---+---+ | | | +---+---+ + +-------+ +-------+---+---+ | afatinib (GILOTRIF) tablet 30 | Given | 09/05/19 | 30 mg | | | | mg Patient's Own Medication 30 | | 19 6:14 | | | | | mg, Oral, DAILY BEFORE BREAKFAST, | | AM PDT | | | | | First dose on [facility] 09/02/18 at | | | | | | | 0730, Chemotherapy: Use | | | | | | | appropriate handling precautions. | | | | | | | Give 1 hour before or 2 hours | | | | | | | after meals. Please walk down | | | | | | | patient's own med (afatinib) to | | | | | | | pharmacy for verification prior | | | | | | | to use. NOT STOCKED BY PHARMACY. | | | | | | | Please communicate to the | | | | | | | provider if the patient or family | | | | | | | is unable to supply the | | | | | | | medication. Thank you!, Bree Daniels | | | | | | | [place], PharmD 09/02/2018 8:34, , | | | | | | | , | | | | | | + +-------+ +-------+---+---+ +-------+ +-------+---+---+ | Given | 09/04/19 | 30 mg | | | | | 19 6:39 | | | | | | AM PDT | | | | +-------+ +-------+---+---+ | Given | 09/03/19 | 30 mg | | | | | 19 4:13 | | | | | | PM PDT | | | | +-------+ +-------+---+---+ +---+---+ | | | +---+---+ + +-------+ +-------+---+---+ | albuterol-ipratropium 2.5-0.5 | Given | 09/02/19 | 3 mLs | | | | mg/3 mL nebulizer solution 3 mL | | 19 9:35 | | | | | 3 mL, Nebulization, RT Q6H, First | | PM PDT | | | | | dose on [facility] 09/01/18 at 2100 | | | | | | + +-------+ +-------+---+---+ +---+---+ | | | +---+---+ + +-------+ +-------+---+---+ | albuterol-ipratropium 2.5-0.5 | Given | 09/05/19 | 3 mLs | | | | mg/3 mL nebulizer solution 3 mL | | 19 12:50 | | | | | 3 mL, Nebulization, RT Q4H, First | | PM PDT | | | | | dose (after last modification) | | | | | | | on [facility] 09/02/18 at 0000 | | | | | | + +-------+ +-------+---+---+ +-------+ +-------+---+---+ | Given | 09/05/19 | 3 mLs | | | | | 19 8:01 | | | | | | AM PDT | | | | +-------+ +-------+---+---+ | Given | 09/05/19 | 3 mLs | | | | | 19 3:13 | | | | | | AM PDT | | | | +-------+ +-------+---+---+ +---+---+ | | | +---+---+ + +-------+ +-------+---+---+ | atorvaSTATin (LIPITOR) tablet | Given | 09/04/19 | 20 mg | | | | 20 mg 20 mg, Oral, NIGHTLY, | | 19 9:05 | | | | | First dose on Thu09/01/18 at 2100 | | PM PDT | | | | + +-------+ +-------+---+---+ +-------+ +-------+---+---+ | Given | 09/03/19 | 20 mg | | | | | 19 9:28 | | | | | | PM PDT | | | | +-------+ +-------+---+---+ | Given | 09/02/19 | 20 mg | | | | | 19 8:04 | | | | | | PM PDT | | | | +-------+ +-------+---+---+ +---+---+ | | | +---+---+ + +-------+ +--------+---+---+ | budesonide (PULMICORT) 0.5 mg/2 | Given | 09/05/19 | 0.5 mg | | | | mL nebulizer solution 0.5 mg | | 19 8:01 | | | | | 0.5 mg, Nebulization, RT BID, | | AM PDT | | | | | First dose on Thu09/01/18 at 2100, | | | | | | | RT will administer. Shake well. | | | | | | | Protect from light. Rinse mouth | | | | | | | after use., | | | | | | + +-------+ +--------+---+---+ +-------+ +--------+---+---+ | Given | 09/04/19 | 0.5 mg | | | | | 19 7:18 | | | | | | PM PDT | | | | +-------+ +--------+---+---+ | Given | 09/04/19 | 0.5 mg | | | | | 19 8:14 | | | | | | AM PDT | | | | +-------+ +--------+---+---+ +---+---+ | | | +---+---+ + +---------+ +-----+-------+---+ | cefepime (MAXIPIME) 1 g in | New Bag | 09/04/19 | 1 g | 100 | | | sodium chloride 0.9% 50 mL IVPB | | 19 9:23 | | mL/hr | | | 1 g, Intravenous, Administer over | | AM PDT | | | | | 30 Minutes, EVERY 12 HOURS (2 | | | | | | | times per day), First dose on Thu | | | | | | | 09/02/18 at 2100, Activate system | | | | | | | and mix before use., Indications: | | | | | | | Healthcare-Associated Pneumonia | | | | | | + +---------+ +-----+-------+---+ +---------+ +-----+-------+---+ | New Bag | 09/03/19 | 1 g | 100 | | | | 19 9:36 | | mL/hr | | | | PM PDT | | | | +---------+ +-----+-------+---+ +---+---+ | | | +---+---+ + +-------+ +-------+---+---+ | famotidine (PEPCID) tablet 20 | Given | 09/05/19 | 20 mg | | | | mg 20 mg, Oral, 2 TIMES DAILY, | | 19 8:32 | | | | | First dose on Thu09/01/18 at 2100 | | AM PDT | | | | + +-------+ +-------+---+---+ +-------+ +-------+---+---+ | Given | 09/04/19 | 20 mg | | | | | 19 9:05 | | | | | | PM PDT | | | | +-------+ +-------+---+---+ | Given | 09/04/19 | 20 mg | | | | | 19 8:33 | | | | | | AM PDT | | | | +-------+ +-------+---+---+ +---+---+ | | | +---+---+ + +-------+ +------+---+---+ | folic acid tablet 1 mg 1 mg, | Given | 09/05/19 | 1 mg | | | | Oral, DAILY, First dose on Thu | | 19 8:32 | | | | | 09/01/18 at 1930 | | AM PDT | | | | + +-------+ +------+---+---+ +-------+ +------+---+---+ | Given | 09/04/19 | 1 mg | | | | | 19 8:33 | | | | | | AM PDT | | | | +-------+ +------+---+---+ | Given | 09/03/19 | 1 mg | | | | | 19 8:26 | | | | | | AM PDT | | | | +-------+ +------+---+---+ +---+---+ | | | +---+---+ + +-------+ +-------+---+---+ | furosemide (LASIX) tablet 20 mg | Given | 09/05/19 | 20 mg | | | | 20 mg, Oral, DAILY, First dose | | 19 8:32 | | | | | on 09/01/18 at 1930 | | AM PDT | | | | + +-------+ +-------+---+---+ +-------+ +-------+---+---+ | Given | 09/04/19 | 20 mg | | | | | 19 8:33 | | | | | | AM PDT | | | | +-------+ +-------+---+---+ | Given | 09/03/19 | 20 mg | | | | | 19 8:26 | | | | | | AM PDT | | | | +-------+ +-------+---+---+ +---+---+ | | | +---+---+ + +-------+ +-------+---+---+ | heparin 100 units/mL flush | Given | 09/05/19 | 500 | | | | injection 500 Units 500 Units (5 | | 19 2:41 | Units | | | | mL), Intracatheter, ONCE, Sat | | PM PDT | | | | | 09/04/18 at 1500, For 1 dose | | | | | | + +-------+ +-------+---+---+ +---+---+ | | | +---+---+ + +-------+ +--------+---+---+ | iohexol (OMNIPAQUE 350) 350 | Given | 09/04/19 | 55 mLs | | | | mg/mL injection 55 mL 55 mL, | | 19 3:44 | | | | | Intravenous, ONCE PRN, Other, | | PM PDT | | | | | Starting Thu09/03/18 at 1544, For | | | | | | | 1 dose, Cat Scanner | | | | | | + +-------+ +--------+---+---+ +---+---+ | | | +---+---+ + +-------+ +---------+---+---+ | levothyroxine (SYNTHROID) | Given | 09/05/19 | 125 mcg | | | | tablet 125 mcg 125 mcg, Oral, | | 19 6:13 | | | | | DAILY BEFORE BREAKFAST, First | | AM PDT | | | | | dose on Thu09/02/18 at 0730, Give | | | | | | | before breakfast., | | | | | | + +-------+ +---------+---+---+ +-------+ +---------+---+---+ | Given | 09/04/19 | 125 mcg | | | | | 19 6:39 | | | | | | AM PDT | | | | +-------+ +---------+---+---+ | Given | 09/03/19 | 125 mcg | | | | | 19 6:10 | | | | | | AM PDT | | | | +-------+ +---------+---+---+ + +---+ | | | + +---+ | LORazepam (ATIVAN) 2 mg/mL | | | liquid 0.5 mg 0.5 mg, Oral, | | | EVERY 8 HOURS PRN, Anxiety, | | | Starting Thu09/03/18 at 1722 | | + +---+ | | | + +---+ + +-------+ +--------+---+---+ | melatonin tablet 1.5 mg 1.5 | Given | 09/04/19 | 1.5 mg | | | | mg, Oral, NIGHTLY PRN, Insomnia, | | 19 9:15 | | | | | Starting 09/01/18 at 1907 | | PM PDT | | | | + +-------+ +--------+---+---+ +-------+ +--------+---+---+ | Given | 09/03/19 | 1.5 mg | | | | | 19 9:32 | | | | | | PM PDT | | | | +-------+ +--------+---+---+ +---+---+ | | | +---+---+ + +-------+ +-------+---+---+ | mirtazapine (REMERON) tablet 15 | Given | 09/04/19 | 15 mg | | | | mg 15 mg, Oral, NIGHTLY, First | | 19 9:05 | | | | | dose on Thu09/01/18 at 2100 | | PM PDT | | | | + +-------+ +-------+---+---+ +-------+ +-------+---+---+ | Given | 09/03/19 | 15 mg | | | | | 19 9:28 | | | | | | PM PDT | | | | +-------+ +-------+---+---+ | Given | 09/02/19 | 15 mg | | | | | 19 8:04 | | | | | | PM PDT | | | | +-------+ +-------+---+---+ +---+---+ | | | +---+---+ + +---------+ +---------+-------+---+ | piperacillin-tazobactam (ZOSYN) | New Bag | 09/02/19 | 3.375 g | 200 | | | 3.375 g in sodium chloride 0.9% | | 19 11:04 | | mL/hr | | | 100 mL IVPB 3.375 g, | | PM PDT | | | | | Intravenous, Administer over 0.5 | | | | | | | Hours, ONCE, Thu09/01/18 at 1945, | | | | | | | For 1 dose, Extended-Infusion | | | | | | | Zosyn Protocol: infuse bolus over | | | | | | | 30 minutes, followed in 4 hours | | | | | | | by maintenance dosing. Activate | | | | | | | system and mix before use., | | | | | | | Indications: | | | | | | | Healthcare-Associated Pneumonia | | | | | | + +---------+ +---------+-------+---+ +---+---+ | | | +---+---+ + +---------+ +---------+ +---+ | piperacillin-tazobactam (ZOSYN) | New Bag | 09/03/19 | 3.375 g | 25 mL/hr | | | 3.375 g in sodium chloride 0.9% | | 19 11:01 | | | | | 100 mL IVPB 3.375 g, | | AM PDT | | | | | Intravenous, Administer over 4 | | | | | | | Hours, EVERY 8 HOURS INTERVAL, | | | | | | | First dose on [facility] 09/02/18 at 0300, | | | | | | | Initiate this extended-infusion | | | | | | | order 4 hours after the bolus | | | | | | | dose was given; note that order | | | | | | | frequency is 8 hours as intended, | | | | | | | but the first dose of this | | | | | | | 4-hour extended-infusion must | | | | | | | begin 4 hours post-bolus (then | | | | | | | given every 8 hours thereafter)., | | | | | | | Activate system and mix before | | | | | | | use., Indications: | | | | | | | Healthcare-Associated Pneumonia | | | | | | + +---------+ +---------+ +---+ +---------+ +---------+ +---+ | New Bag | 09/03/19 | 3.375 g | 25 mL/hr | | | | 19 3:10 | | | | | | AM PDT | | | | +---------+ +---------+ +---+ +---+---+ | | | +---+---+ + +-------+ +--------+---+---+ | potassium chloride (Klor-Con | Given | 09/03/19 | 40 mEq | | | | M20) ER tablet 40 mEq 40 mEq, | | 19 4:26 | | | | | Oral, ONCE, Adele 09/02/18 at 0415, | | AM PDT | | | | | For 1 dose | | | | | | + +-------+ +--------+---+---+ +---+---+ | | | +---+---+ + +-------+ +-------+---+---+ | predniSONE (DELTASONE) tablet | Given | 09/05/19 | 40 mg | | | | 40 mg 40 mg, Oral, DAILY, First | | 19 8:32 | | | | | dose on Thu09/01/18 at 1930 | | AM PDT | | | | + +-------+ +-------+---+---+ +-------+ +-------+---+---+ | Given | 09/04/19 | 40 mg | | | | | 19 8:33 | | | | | | AM PDT | | | | +-------+ +-------+---+---+ | Given | 09/03/19 | 40 mg | | | | | 19 8:26 | | | | | | AM PDT | | | | +-------+ +-------+---+---+ +---+---+ | | | +---+---+ + +-------+ +---------+---+---+ | roflumilast (DALIRESP) tablet | Given | 09/04/19 | 500 mcg | | | | 500 mcg (POM) 500 mcg, Oral, | | 19 9:05 | | | | | NIGHTLY, First dose on Thu09/01/18 | | PM PDT | | | | | at 2100 | | | | | | + +-------+ +---------+---+---+ +-------+ +---------+---+---+ | Given | 09/03/19 | 500 mcg | | | | | 19 9:32 | | | | | | PM PDT | | | | +-------+ +---------+---+---+ +---+---+ | | | +---+---+ + +-------+ +--------+---+---+ | senna (SENOKOT) tablet 8.6 mg | Given | 09/02/19 | 8.6 mg | | | | 8.6 mg, Oral, 2 TIMES DAILY PRN, | | 19 8:37 | | | | | Constipation, Starting 09/01/18 | | PM PDT | | | | | at 1907, If docusate ineffective | | | | | | | or not ordered., | | | | | | + +-------+ +--------+---+---+ +---+---+ | | | +---+---+ + +------+ +--------+-------+---+ | sodium chloride 0.9% (NS) bolus | Push | 09/04/19 | 30 mLs | 1800 | | | 30 mL 30 mL, Intravenous, | | 19 3:44 | | mL/hr | | | Administer over 1 Minutes, ONCE | | PM PDT | | | | | PRN, for contrast study, Starting | | | | | | | 09/03/18 at 1544, For 1 dose, | | | | | | | May infuse at a different rate | | | | | | | per protocol., Cat Scanner | | | | | | + +------+ +--------+-------+---+ +---+---+ | | | +---+---+ + +-------+ + +---+---+ | sulfamethoxazole-trimethoprim | Given | 09/04/19 | 1 tablet | | | | (BACTRIM DS) 800-160 mg per | | 19 8:33 | | | | | tablet 1 tablet 1 tablet, Oral, | | AM PDT | | | | | 2 TIMES DAILY, First dose on Thu | | | | | | | 09/01/18 at 2100, Indications: | | | | | | | Infection due to Pneumocystis | | | | | | | Jirovecii | | | | | | + +-------+ + +---+---+ +-------+ + +---+---+ | Given | 09/03/19 | 1 tablet | | | | | 19 9:28 | | | | | | PM PDT | | | | +-------+ + +---+---+ | Given | 09/03/19 | 1 tablet | | | | | 19 8:25 | | | | | | AM PDT | | | | +-------+ + +---+---+ +---+---+ | | | +---+---+ + +---------+ + +--------+---+ | vancomycin 1,000 mg in sodium | New Bag | 09/03/19 | 1,000 mg | 166.7 | | | chloride 0.9% 250 mL IVPB 1,000 | | 19 8:25 | | mL/hr | | | mg, Intravenous, Administer over | | AM PDT | | | | | 90 Minutes, ONCE, [facility] 09/02/18 at | | | | | | | 0800, For 1 dose, Activate system | | | | | | | and mix before use., | | | | | | | Indications: | | | | | | | Healthcare-Associated Pneumonia | | | | | | + +---------+ + +--------+---+ +---+---+ | | | +---+---+ + +---------+ + +--------+---+ | vancomycin 1,000 mg in sodium | New Bag | 09/03/19 | 1,000 mg | 166.7 | | | chloride 0.9% 250 mL IVPB 1,000 | | 19 10:48 | | mL/hr | | | mg, Intravenous, Administer over | | PM PDT | | | | | 90 Minutes, EVERY 24 HOURS | | | | | | | INTERVAL, First dose on Adele | | | | | | | 09/02/18 at 2100, Activate system | | | | | | | and mix before use., Indications: | | | | | | | Healthcare-Associated Pneumonia | | | | | | + +---------+ + +--------+---+ +---+---+ | | | +---+---+ + +---------+ + +-------+---+ | vancomycin 1,250 mg in sodium | New Bag | 09/02/19 | 1,250 mg | 175 | | | chloride 0.9% 250 mL IVPB 1,250 | | 19 8:35 | | mL/hr | | | mg, Intravenous, Administer over | | PM PDT | | | | | 90 Minutes, ONCE, 09/01/18 at | | | | | | | 2030, For 1 dose, Keep in | | | | | | | refrigerator., Indications: | | | | | | | Community Acquired Pneumonia | | | | | | + +---------+ + +-------+---+ +---+---+ | | | +---+---+ + +-------+ +-------+---+---+ | venlafaxine (EFFEXOR XR) ER | Given | 09/05/19 | 75 mg | | | | capsule 75 mg 75 mg, Oral, DAILY | | 19 8:32 | | | | | WITH BREAKFAST, First dose on | | AM PDT | | | | | Adele 09/02/18 at 0800 | | | | | | + +-------+ +-------+---+---+ +-------+ +-------+---+---+ | Given | 09/04/19 | 75 mg | | | | | 19 8:33 | | | | | | AM PDT | | | | +-------+ +-------+---+---+ | Given | 09/03/19 | 75 mg | | | | | 19 8:25 | | | | | | AM PDT | | | | +-------+ +-------+---+---+ +---+---+ | | | +---+---+ + +-------+ +------+---+---+ | warfarin (COUMADIN) tablet 2 mg | Given | 09/03/19 | 2 mg | | | | 2 mg, Oral, Once - Warfarin, | | 19 7:23 | | | | | First dose on Thu09/02/18 at 1800, | | PM PDT | | | | | For 1 dose, Reproductive Risk: | | | | | | | Use appropriate handling | | | | | | | precautions. Drug education | | | | | | | required., | | | | | | + +-------+ +------+---+---+ +---+---+ | | | +---+---+ + +-------+ +------+---+---+ | warfarin (COUMADIN) tablet 2 mg | Given | 09/04/19 | 2 mg | | | | 2 mg, Oral, Once - Warfarin, | | 19 6:16 | | | | | First dose (after last reorder) | | PM PDT | | | | | on Thu09/03/18 at 1800, For 1 | | | | | | | dose, Reproductive Risk: Use | | | | | | | appropriate handling precautions. | | | | | | | Drug education required., | | | | | | + +-------+ +------+---+---+ + +---+ | | | + +---+ | warfarin (COUMADIN) tablet 2.5 | | | mg 2.5 mg, Oral, Daily - | | | Warfarin, First dose on Sat | | | 09/04/18 at 1800, Reproductive | | | Risk: Use appropriate handling | | | precautions. Drug education | | | required., | | + +---+ | | | + +---+ documented in this encounter
--- OUTSIDE RECORDS SUMMARY | ~2019-05-05 | XMS | Encounter Summary ---
Demographics + + + | Address | [address] | | | [place] [address] | + + + | Home Phone [...] [address] [place] | | | | | [address] | | + + + + + Care Team Providers + +------+ + | Care Senior Partner Name | Role | Phone | + +------+ + PCP | Unavailable | + +------+ + Encounter Details +--------+ + + + + | Date | Type | Department | Care Team | Description | +--------+ + + + + | 10/11/ | Hospital | [facility] [place] [facility] | Conversion | Pain | | 2013 | Encounter | CONVERSION [address] | Transaction, | | | | | [address] | Provider Unknown | | | | | [place], [place] | [phone] | | | | | [phone] | (Fax) | | | | | [phone] | | | +--------+ + + + [...] | | | | | [place] [address] | | | | | | [phone] | | | | | | | | +--------+ + + + + | 06/08/ | Office | Physical Medicine | Rocky Santos, | | | 2019 | Visit | and Rehabilitation | MD Nichole Landis | | | | | | [place] | | | | | | [address] | | | | | | | | +--------+ + + + + | 06/16/ | Appointment | Pulmonology | Eveline Jaffe | | 2019 | | | MD Nichole [address] | | | | | | [address] | | | | | | [place] [address] | | | | | | [phone] | | | | | | | | +--------+ + + + + | 06/16/ | Office | Pulmonology | Eveline Jaffe | | | 2019 | Visit | | MD Raul [address] | | | | | | [place] [address] | | | | | | [place] [address] | | | | | | [phone] | | | | | | | | +--------+ + + + + | 08/24/ | Office | Cardiology | Anisha Lopez DO | | | 2019 | Visit | | [address] | | | | | | [place] | | | | | | [address] | | | | | | | [...]
--- OUTSIDE RECORDS SUMMARY | ~2019-05-05 | XMS | Encounter Summary ---
Demographics + + + | Address | [address] | | | [place] [address] | + + + | Home Phone [...] [place] | | | | | [address] | | + + + + + Care Team Providers + +------+ + | Care Nicker Name | Role | Phone | + +------+ + | Davis Ivan MD | PCP | | + +------+ + Encounter Details +--------+ + + + + | Date | Type | Department | Care Team | Description | +--------+ + + + + | 11/06/ | Hospital | [facility] | Gurmeet Vargas | Bronchogenic cancer | | 2017 | Encounter | MED CTR XRAY [address] | MD [address] | of right lung (HCC) | | | | [place] | [address] [place] | | | | | [place] [address] | [place] [address] | | | | | [phone] | [phone] | | | | | | | [...] + + + +---------+ + + | PROAIR HFA 108 (90 | Inhale 2 puffs into | | 0 | | | | Base) MCG/ACT | the lungs every 4 | | | | 8 | | inhaler | hours as needed for | | [...] + + + +---------+ + + | traZODone | Take 100 mg by mouth | | 0 | 10/15/19 | | | (DESYREL) 100 mg | nightly. | | | 17 | 8 | | tablet | | [...] | | | | | | [place] [address] | | | | | | [phone] | | | | | | | | +--------+ + + + + | 06/08/ | Office | Physical Medicine | Rocky Santos, | | | 2019 | Visit | and Rehabilitation | MD [address] | | | | | | [place] | | | | | | [address] | | | | | | | | +--------+ + + + + | 06/16/ | Appointment | Pulmonology | Eveline Jaffe | | | 2019 | | | MD Nichole Carter | | | | | | [place] | | | | | | [place] [address] | | | | | | [phone] | | | | | | | | +--------+ + + + + | 06/16/ | Office | Pulmonology | Eveline Jaffe | | | 2019 | Visit | | MD Raul [address] | | | | | | [address] [place] | | | | | | [place] [address] | | | | | | [phone] | | | | | | | | +--------+ + + + + | 08/24/ | Office | Cardiology | Anisha Lopez DO | | | 2019 | Visit | | [address] | | | | | | [place] | | | | | | [address] | | | | | | | | +--------+ + + + + documented as of this encounter Procedures + +--------+ + + + | Procedure Name | Priori | Date/Time | Associated Diagnosis | Comments | | | ty | | | | + +--------+ + + + | XR CHEST PA AND | Routin | 11/06/2016 | Bronchogenic | Results for this | | LATERAL | e | 12:00 PM | cancer of right lung | procedure are in the | | | | PDT | ([facility]) | results section. | + +--------+ + [...] 10/29/[address] chest 11/30/2015. | [facility] | | FINDINGS: Frontal and [...] Emphysematous COPD. Dictated and Signed by: Alex Dumont | | MD [place] Electronically signed: 11/06/2016 [...] + | [facility] [facility] | [address] | [place] | [phone] | | [facility] | | [address] | | | - IMAGING | | | | + + + + + documented in this encounter Visit Diagnoses + + | Diagnosis | + + | Bronchogenic cancer of right lung (HCC) | + + documented in this encounter"
--- OUTSIDE RECORDS SUMMARY | ~2019-05-05 | XMS | Encounter Summary ---
Demographics + + + | Address | [address] | | | [place] [address] | + + + | Home Phone [...] [place] | | | | | [address] | | + + + + + Care Team Providers + +------+ + | Care Documentation Liaison Name | Role | Phone | + [...] + + | 08/07/ | Hospital | [facility] | Adelita Lu MD | Recurrent squamous | | 2015 | Encounter | MED CTR MEDICAL | [address] | cell carcinoma of | | | | [facility] [address] | [place] | lung, unspecified | | | | [address] [place] | [address] | laterality (HCC) | | | | [place] [address] | [phone] | (Primary Dx) | | | | [phone] | | | +--------+ + + + [...] + + + | Blood Pressure | 111/59 | 08/07/2014 10:02 AM | | | | | PDT | | + + + + + | Pulse | 67 | 08/07/2014 10:02 AM | | | | | PDT | | + + + + + | Temperature | 36 C (96.8 F) | 08/07/2014 10:02 AM | | | | | PDT | | + + + + + | Respiratory Rate | 22 | 08/07/2014 10:02 AM | | | | | PDT | | + + + + + | Oxygen Saturation | 95% | 08/07/2014 10:02 AM | | | | | PDT | | + + + + + | Inhaled Oxygen | - | - | | | Concentration | | | | + + + + + | Weight | 68.3 kg (150 lb 9.2 | 08/07/2014 10:02 AM | | | | oz) | PDT | | + + + + + | Height | 157.5 cm (5' 2") | 08/07/2014 10:02 AM | | | | | PDT | | + + + + + | Body Mass Index | 27.54 | 08/07/2014 10:02 AM | | | | | PDT [...] encounter Progress Notes Adelita Lu MD - 08/07/2014 9:46 AM PDT Hem-Onc Progress Note [facility] Patient name:Thea Carmona : 1945 Age: 69 y.o. CSN: [id number] Date of Service: 08/07/2014 Identifying Statement: Thea Carmona is a 69 y.o. female from [facility] with clinical stage II, non-small cell lung [...] biopsy by interventional radiology at [facility] of the right lung massshows squamous cell [...] Dr. Mace , thoracic surgeon at [facility] for consideration of broncho scopy, [...] cell carcinoma Chief Complaint/HPI: Here for cycle #1 carboplatin and Taxol given concurrently with radiat ion for recurrence of lung cancer in the right hilar node REVIEW OF SYSTEMS Constitutional: Fatigue, "I have none." Denies high fevers, shaking chills, anorexia, naus ea, vomiting. Weight loss of 3 lbs. Occasional night sweats. Appetite poor. States she has to force herself eat. Ear, Nose, Mouth, Throat: States she continues to have sores in her mouth but are from her dentures. No dysphagia, or tinnitus. Cardiovascular: Shortness of breath. States especially dyspnea on exertion. No chest pain, palpitations or orthopnea. States she was a panic since her SOB is getting worse. Respiratory: Productive thick clear sputum noted. No hemoptysis. Gastrointestinal: Denies abdominal pain, constipation, diarrhea, melena, or bright red bloo d per rectum. Genitourinary: States she feels like her bladder is not emptying out. States its painful fi rst thing in the morning. Musculoskeletal: Intermittent generalized joint pain and tenderness. Neurologic: Occasional headaches. States it appears to be less now. No Visual changes. No numbness/tingling of the extremities. Endocrine: Denies peripheral edema or heat/cold intolerance. Hematologic: Spontaneous bruising no bleeding. Bruising noted to forearms. Is taking blood thinners. Integumentary: Bruising noted to forearms bilaterally and throughout her torso. Is currentl y taking Prednisone. Pain: Denies pain. Note:Follow up appointment with Dr. Lu and labs. Four hour chemo treatment. Mrs. Carmona is in a wheelchair . My chart:Declined Past Medical History: Past Medical History Diagnosis Date COPD (chronic obstructive pulmonary disease) ([facility]) on albuterol Spondylolisthesis of cervical region Spinal stenosis has tried cortisone injections Osteoporosis Depression Pneumonia 2009 hospitalized 5 days Rheumatoid arthritis(714.0) ([facility]) on prednisone and [facility]otrexate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 RESPIRATORY THERAPY SUPPLIES [facility] [employer]Med S9 auto CPAP 5-9 cm H2O. Heater and Humidifier . All necessary supplies. AHI 11.6. Diagnosis Code(s)327.23, also has co morbid hypertension , history of stroke. Length of Need 99 months. Please send order to [facility]. RESPIRATORY THERAPY SUPPLIES [employer] Respironics autotitrating CPAP at 5-9 cm H2O for life time. Mask, headgear, chin strap, hoses, humidifier chamber and filters. Dx: 327.23 SIMVASTATIN (ZOCOR) 40 MG TABLET Take 40 mg by mouth nightly. VENLAFAXINE (EFFEXOR) 75 MG TABLET Take 37.5 mg by mouth 2 times daily. Modified Medications No medications on file Discontinued Medications No medications on file Physical Exam: Vitals:Temp: [36 C (96.8 F)] 36 C (96.8 F) Pulse: [67] 67 Resp: [22] 22 BP: (111)/(59) 111/59 mmHg Gen.: Performance status ECoG 1 . Well nourished, appears well not in apparent distress.. .. Chest: Clear to auscultation Heart: S1-S2 regular rate Extremities: No edema Musculoskeletal: Patient is in a wheelchair today LABORATORY DATA: Recent Results (from the past 24 hour(s)) COMPREHENSIVE METABOLIC PANEL Result Value Range NA 137 136-149 mmol/L K 4.0 3.5-5.1 mmol/L CL 103 98-109 mmol/L CO2 26 24-31 mmol/L ANION GAP 8 3-16 mmol/L GLUCOSE 112 (*) 70-109 mg/dL BUN 14 7-18 mg/dL Creatinine, Serum/Plasma 0.88 0.60-1.30 mg/dL eGFR if not >60 >=60 mL/min/1.73m2 CALCIUM 8.9 8.3-10.5 mg/dL ALBUMIN 3.2 3.2-5.0 g/dL BILIRUBIN TOTAL 0.6 0.1-1.5 mg/dL Total protein 6.2 6.0-7.8 g/dL AST 33 10-42 U/L ALT 28 6-45 U/L ALK PHOS 75 40-110 U/L GLOBULIN 3.0 Albumin/Globulin ratio 1.1 BUN/CREA 15.9 CBC WITH DIFFERENTIAL Result Value Range WBC 7.5 4.0-11.0 K/uL RBC 4.07 3.70-5.20 M/uL Hgb 12.6 11.5-16.0 g/dL Hct 37.5 34.0-47.0 % MCV 92.0 83.0-101.0 fL MCH 30.9 28.0-35.0 pg MCHC 33.5 32.0-36.0 g/dL RDW 18.2 (*) <15.0 % Platelet Count 193 140-440 K/uL MPV 7.3 % Neutrophils 85.9 (*) 45.0-82.0 % % Lymphocytes 9.2 (*) 20.0-45.0 % % Monocytes 4.2 4.0-12.0 % % Eosinophils 0.4 0.0-5.0 % % Basophils 0.3 0.0-1.0 % Absolute Neutrophils 6.40 1.80-8.50 K/uL Absolute Lymphocytes 0.70 0.60-3.20 K/uL Absolute Monocytes 0.30 0.00-1.00 K/uL Absolute Eosinophils 0.00 0.00-0.40 K/uL Absolute Basophils 0.00 0.00-0.10 K/uL Imaging: PET/CT scan June 2014: [facility]: Necrotic right lung lesion wit [...] on aspirin and Plavix PLAN: Continue cycle #1 carboplatin AUC 2 and Taxol 45 mg/m concurrent with radiation Patient continues to be on Levaquin for acute bronchitis which she is saying is getting bet ter Discussed side effects related to chemotherapy which include but not limited to myelosuppre ssion, risk of infections, alopecia, numbness and tingling in hands and feet, fatigue. Encouraged about increased nutrition and hydration Total time face to face discussion with the patient and family was 25 minutes, more than 5 0% of the time was spent counseling and coordination of care. Adelita Lu MD Portions of this chart may have been created with [employer] voice recognition software. Occasi onal wrong-word or [...] | | | | | | [place] [address] | | | | | | [phone] | | | | | | | | +--------+ + + + + | 06/08/ | Office | Physical Medicine | Rocky Santos, | | | 2019 | Visit | and Rehabilitation | MD Nichole Landis | | | | | | [place] | | | | | | [address] | | | | | | | | +--------+ + + + + | 06/16/ | Appointment | Pulmonology | Eveline Jaffe | | 2019 | | | MD Nichole [address] | | | | | | [address] | | | | | | [place] [address] | | | | | | [phone] | | | | | | | | +--------+ + + + + | 06/16/ | Office | Pulmonology | Eveline Jaffe | | | 2019 | Visit | | MD Raul [address] | | | | | | [address] | | | | | | [place] [address] | | | | | | [phone] | | | | | | | | +--------+ + + + + | 08/24/ | Office | Cardiology | Anisha Lopez DO | | | 2019 | Visit | | [address] | | | | | | [place] | | | | | | [address] | | | | | | | | +--------+ + + + + documented as of this encounter Visit Diagnoses + + | Diagnosis | + + | Recurrent squamous cell carcinoma of lung, unspecified laterality (HCC) - Primary | + + documented in this encounter
--- OUTSIDE RECORDS SUMMARY | ~2019-05-05 | XMS | Encounter Summary ---
Demographics + + + | Address | [address] | | | [place] [address] | + + + | Home Phone [...] [place] | | | | | [address] | | + + + + + Care Team Providers + +------+ + | Care Jig And Fixture Maker Name | Role | Phone | [...] + + | 01/20/ | Refill | [facility] | Abeba Douglas MD | Medication Refill | | 2019 | | RHEUMATOLOGY [address] | | | | [address] | [address], [place] | | | | | [place], [place] | [address] | | | | | [address] | | | | | | [phone] | | | +--------+--------+ + + + [...] | | | | | [place] [address] | | | | | | [phone] | | | | | | | | +--------+ + + + + | 06/08/ | Office | Physical Medicine | Rocky Santos, | | | 2019 | Visit | and Rehabilitation | [address] | | | | | | [place] | | | | | | [address] | | | | | | | | +--------+ + + + + | 06/16/ | Appointment | Pulmonology | Eveline Jaffe | | 2019 | | | MD [address] | | | | | | [address] | | | | | | [place] [address] | | | | | | [phone] | | | | | | | | +--------+ + + + + | 06/16/ | Office | Pulmonology | Eveline Jaffe | | | 2019 | Visit | | MD [address] | | | | | | [address] | | | | | | [place] [address] | | | | | | [phone] | | | | | | | | +--------+ + + + + | 08/24/ | Office | Cardiology | Anisha Lopez DO | | 2019 | Visit | | [address] | | | | | | [place] | | | | | | [address] | | | | | | | | +--------+ + + + + documented as of this encounter Visit Diagnoses Not on filedocumented in this encounter"
--- OUTSIDE RECORDS SUMMARY | ~2019-05-05 | XMS | Encounter Summary ---
Demographics + + + | Address | [address] | | | [place] [address] | + + + | Home Phone | | + + + | Preferred Language | Unknown | + + + | Marital Status | | + + + | Catholic Affiliation | Unknown | + + + | Race | Unknown | + + + | Ethnic Group | Unknown | + + + Author + + + | Author | [facility] | | | and [place] | + + + | Organization | [facility] | | | [...] [place] | | | | | [address] | | + + + + + Care Team Providers + +------+ + | Care Radio Time Buyer Name | Role | Phone | + [...] [place] | | | | | [facility] [place] | [address] | | | | | [address] | | | | | | [phone] | | | +--------+ + + + [...] | | | | | [place] [address] | | | | | | [phone] | | | | | | | | +--------+ + + + + | 06/08/ | Office | Physical Medicine | Rocky Santos, | | | 2019 | Visit | and Rehabilitation | MD [address] | | | | | | [place] | | | | | | [address] | | | | | | | | +--------+ + + + + | 06/16/ | Appointment | Pulmonology | Eveline Jaffe | | 2019 | | | MD [address] | | | | | | [address] | | | | | | [place] [address] | | | | | | [phone] | | | | | | | | +--------+ + + + + | 06/16/ | Office | Pulmonology | Eveline Jaffe | | | 2019 | Visit | | MD Raul [address] | | | | | | [address] | | | | | | [place] [address] | | | | | | [phone] | | | | | | | | +--------+ + + + + | 08/24/ | Office | Cardiology | Anisha Lopez DO | | | 2019 | Visit | | [address] | | | | | | [place] | | | | | | [address] | | | | | | | [...] 0.75 m/s MV | | | Dec Bond: 2.82 m/s2 MV DecT: 228.26 ms MV E Hiren: 0.63 m/s | | | MV E/A Ratio: 0.84 E/E' Sept: 13.21 E' Lat: 0.05 m/s E' | | | Sept: 0.04 m/s RV S': 0.17 m/s Insurance Office Manager: Authenticated | | | by: Anisha Lopez MD Report Date/Time: -- [id number]:37:26 | | + + + + + | Procedure Note | + + | Fabián, Rad Conversion - 01/20/2019 1:15 PM PDT Patient Name: Lexus Carmona of | | : 1945 Performing Physician: Anisha Lopez | | INDICATIONS E | | xertional Dyspnea, Lung [...] (A-L): 20.30 ml/m2LAAs A2C: | | 13.00 [id number] A-L A2C: 33.39 mlLAESV MOD A2C: 31.06 mlLALs A2C: 4.29 cmLAAs A4C: | | 13.52 [id number] A-L A4C: 34.38 mlLAESV MOD A4C: 32.42 mlLALs A4C: 4.51 cmAV | | Env.Ti: 288.28 msAV maxP.87 mmHgAV meanP.93 mmHgAV Vmax: 1.64 m/Susan | | Vmean: 1.15 m/Susan VTI: 33.33 cmAVA Vmax: 2.06 cm2AVA (VTI): 2.23 [id number] Vmax: | | 0.00 cm2/m2AVAI (VTI): 0.00 cm2/m2LVOT Env.Ti: 299.59 msLVOT maxP.68 mmHgLVOT | | meanP.16 mmHgLVSI Dopp: 43.53 ml/m2LVSV Dopp: 74.45 mlLVOT Vmax: 0.95 | | m/sLVOT Vmean: 0.70 m/sLVOT VTI: 20.98 cmMV A Hiren: 0.75 m/sMV Dec Bond: 2.82 | | m/s2MV DecT: 228.26 msMV E Hiren: 0.63 m/sMV E/A Ratio: 0.84E/E' Sept: 13.21E' | | Lat: 0.05 m/sE' Sept: 0.04 m/sRV S': 0.17 m/s Insurance Office Manager:Authenticated by: | | Anisha Lopez MDReport Date/Time: -- [id number]:37:26 IMPRESSION: 1. This was a | | [...] A Hiren: 0.75 m/s | |MV Dec Bond: 2.82 m/s2 | |MV DecT: 228.26 ms | |MV E Hiren: 0.63 m/s | |MV E/A Ratio: 0.84 | |E/E' Sept: 13.21 | |E' Lat: 0.05 m/s | |E' Sept: 0.04 m/s | |RV S': 0.17 m/s | | | |Insurance Office Manager: | |Authenticated by: Anisha Lopez MD | |Report Date/Time: -- [id number]:37:26 | | | |IMPRESSION: | |1. This [...]
--- OUTSIDE RECORDS SUMMARY | ~2019-05-05 | XMS | Encounter Summary ---
Demographics + + + | Address | [address] | | | [place] [address] | + + + | Home Phone [...] [place] | | | | | [address] | | + + + + + Care Team Providers + +------+ + | Care Payroll Officer Name | Role | Phone | [...] + + + + | 08/24/ | [facility] | [facility] | Claudia, | Shortness of breath | | 2014 | Encounter | MED CTR PULMONARY | Ayana Looney MD | on exertion | | | | FUNCTION [address] | | | | | | [place], | | | | | | [place] [address] | | | | | | [phone] | | | +--------+ + + + [...] | | | | | | [place] [address] | | | | | | [phone] | | | | | | | | +--------+ + + + + | 06/08/ | Office | Physical Medicine | Rocky Santos, | | | 2019 | Visit | and Rehabilitation | MD [address] | | | | | | [place] | | | | | | [address] | | | | | | | | +--------+ + + + + | 06/16/ | Appointment | Pulmonology | Eveline Jaffe | | | 2019 | | | MD [address] | | | | | | [address] | | | | | | [place] [address] | | | | | | [phone] | | | | | | | | +--------+ + + + + | 06/16/ | Office | Pulmonology | SoilacurtisEveline | | | 2019 | Visit | | MD [address] | | | | | | [address] | | | | | | [place] [address] | | | | | | [phone] | | | | | | | | +--------+ + + + + | 08/24/ | Office | Cardiology | Anisha Lopez DO | | 2019 | Visit | | [address] | | | | | | [place] | | | | | | [address] | | | | | | | [...]
--- OUTSIDE RECORDS SUMMARY | ~2019-05-05 | XMS | Encounter Summary ---
Demographics + + + | Address | [address] | | | [place] [address] | + + + | Home Phone [...] [place] | | | | | [address] | | + + + + + Care Team Providers + +------+ + | Care Locomotive Engineer Electric Name | Role | Phone | + +------+ + | Davis Ivan MD | PCP | | + +------+ + Reason for Visit +--------+ + | Reason | Comments | +--------+ + | COPD | COPD | +--------+ + Encounter Details +--------+---------+ + + + | Date | Type | Department | Care Team | Description | +--------+---------+ + + + | 09/07/ | Office | [facility] | Offenstein, | Cough (Primary Dx); | | 2014 | Visit | PULMONARY [address] | Ayana Looney MD | Leg edema, left; | | | | [place], | | COPD (chronic | | | | [place] [address] | | obstructive | | | | [phone] | | pulmonary disease); | | | | | | Recurrent squamous | | | | | | cell carcinoma of | | | | | | lung, right (HCC); | | | | | | Gastroesophageal | | | | | | reflux disease with | | | | | | esophagitis | +--------+---------+ + + + Social [...] + + + | Blood Pressure | 132/70 | 09/07/2014 1:56 PM | | | | | PDT | | + + + + + | Pulse | 91 | 09/07/2014 1:56 PM | | | | | PDT | | + + + + + | Temperature | - | - | | + + + + + | Respiratory Rate | 12 | 09/07/2014 1:56 PM | | | | | PDT | | + + + + + | Oxygen Saturation | 95% | 09/07/2014 1:56 PM | room air | | | | PDT | | + + + + + | Inhaled Oxygen | - | - | | | Concentration | | | | + + + + + | Weight | 69 kg (152 lb 3.2 | 09/07/2014 1:56 PM | | | | oz) | PDT | | + + + + + | Height | 157.5 cm (5' 2") | 09/07/2014 1:56 PM | | | | | PDT | | + + + + + | Body Mass Index | 27.84 | 09/07/2014 1:56 PM | | | | | PDT | | + + + + + documented in this encounter Patient Instructions Patient Instructions Ayana Taylor MD - 09/07/2014 2:45 PM PDTInstructions for Av oidance of Reflux [...] medication, omeprazole, 30 minutes prior to eating. Have upper GI test done at [facility] to see if you are refluxing. Stay on the omeprazole and sucralfate. If the Mucinex helps, continue this. Have leg ultrasound today. documented in this encounter Progress Notes Ayana Taylor MD - 09/07/2014 2:02 PM PDTFormatting of this note might be differe nt from the original. Pulmonary Follow Up HPI Thea Carmona is a 69 y.o. female patient of Davis Ivan here today for follow up of COPD. At their last visit, we had placed her on a prednisone, 40 mg taper, and ordered a follow u p CT scan. Since their last visit she feels like her breathing is better but her cough is no t any better. Her CT scan did not show any changes. She is currently on a regimen of Spiriva once daily and Symbicort twice daily. She is using a spacer with her Symbicort for the last couple of weeks. She is not using her rescue inhal er very often. She is using her nebulizer, albuterol, 1 times a day. She returns today for routine follow up. Currently she is able to walk around the house at her own pace on level ground. She is not exercising regularly. She is limited mostly by her breathing. When she coughs, she is bringing up mucous, which is white in color, occasionally with a li ttle green. She is taking Mucinex. She coughs most often in the afternoon. She has a slight temperature yesterday when the [facility] nurse came by, she thinks in the 99 ra nge. She does not have symptoms of reflux. She does have an epigastric burn when she drinks a li quid or eats food, that is mild. They think it is from her radiation. She is on sucralfate, two a day and omeprazole twice daily. She has not had symptoms of nasal congestion, runny nose or post nasal drip. Past Medical History Past Medical History Diagnosis Date COPD (chronic obstructive pulmonary disease) ([facility]) on albuterol Spondylolisthesis of cervical region Spinal stenosis has tried cortisone injections Osteoporosis Depression Pneumonia 2009 hospitalized 5 days Rheumatoid arthritis(714.0) ([facility]) on prednisone and methotrexate, Dr. 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 cloNIDine (CATAPRES) 0.1 mg tablet clopidogrel (PLAVIX) 75 mg tablet Take 75 mg by mouth Daily. diazepam (VALIUM) 2 mg tablet 0 ferrous sulfate (IRON) 28 MG TABS Take 28 mg by mouth Daily. folic acid 1 mg tablet Take 1 mg by mouth Daily. HYDROcodone-acetaminophen (HYCET) 7.5-325 mg/15 mL liquid Take 15 mLs by mouth 4 times daily as needed for Pain or Cough for up to 10 days. 118 mL 0 HYDROmorphone (DILAUDID) 4 MG tablet Take [...] 20 mg by mouth 2 times daily. [DISCONTINUED] pantoprazole (PROTONIX) 40 mg tablet Take 40 mg by mouth every morning ( before breakfast). [DISCONTINUED] predniSONE (DELTASONE) 10 mg tablet 4 tabs orally daily for 3 days then decrease by 1 tab every 3 days. Resume 10mg dose when complete. 30 tablet 0 predniSONE (DELTASONE) 5 mg tablet Take 10 mg by mouth Daily. Respiratory Therapy Supplies [facility] Ayudarum S9 auto CPAP 5-9 cm H2O. Heater [...] facility-administered encounter medications on file as of 09/07/2014. Review of Systems: General: []Weight loss/gain (over 10 lbs) []Fever/chills/sweats []Night sweats EENT: []Hearing loss [x]Vision loss/change- left eye blurry at times []Sinus congestion/nasa l drainage []Nosebleeds [x]Hoarseness Cardiac: []Chest pain []Palpitations/heart racing [x]Swelling of legs/ankles - left greater than ri ght []Waking up at night short of breath Gastrointestinal: []Nausea/vomiting [x]Difficulty swallowing- only large pills [x]Heartburn/acid reflux [x]Lo ss of appetite []Abdominal pain Urologic: []Blood in urine []Frequent urination at night []Burning/painful urination []Difficulty wit h urination Objective BP 132/70 | Pulse 91 | Resp 12 | Ht 1.575 m (5' 2") | Wt 69.037 kg (152 lb 3.2 oz) | B NE 27.83 kg/m2 | SpO2 95% RA General Appearance: [...] prolongatio n of the expiratory phase and scattered rhonchi, no wheezes, crackles Chest Wall: No deformity Heart: Regular rate and rhythm, no murmur, rub or gallop Abdomen: Soft, non-tender, non-distended Extremities: No cyanosis, or clubbing, left greater than right lower extremity edema, negat zev Johnson's sign, tender around ankle but not calf, some ecchymosis on top of foot Pulses: Radial pulses 2+ and symmetric Skin: Warm and dry Lymph nodes: Cervical and supraclavicular nodes normal Data: Chest CT scan done on August 29, 2014 was reviewed and interpreted in clinic today. It shows no significant change. Immunization History Administered Date(s) Administered INFLUENZA, TRIVALENT PRESERVATIVE FREE (PED/ADOL/ADULT) 03/22/2013, 02/15/2014 PNEUMOCOCCAL POLYSACCHARIDE 23-VALENT (PPSV23) 03/01/2011 Assessment 1. Cough - Recent UGI bleed and dysphagia symptoms, with ongoing cough symptoms, as well as epigastric pain. I strongly suspect that her GI tract may be responsible for her cough desp ite use of omeprazole and sucralfate. Endoscopy is pending, due to ongoing chemotherapy and radiation. I have ordered an UGI barium swallow in the meantime, and have provided her some reflux management instructions. 2. Leg edema, left - New onset left leg edema, without clear source. No classic signs of DV T, but given recurrent malignancy, I would like to exclude DVT. 3. COPD (chronic obstructive pulmonary disease) - On Symbicort and Spiriva with improved dy spnea, but persistent cough, No response to prednisone or antibiotics, so I suspect not rela april to her lung disease. 4. Recurrent squamous cell carcinoma of lung, right (HCC) - On chemotherapy and radiation. Followed by Dr. Banegas and Tabitha. 5. Gastroesophageal reflux disease with esophagitis - On omeprazole and sucralfate. I asked her to use the omeprazole 30 minutes prior to eating. Plan 1.Schedule UGI barium swallow. 2.Have LE ultrasound today. 3.Continue Symbicort and Spiriva. 4. Anti reflux instructions reviewed. 5. Have endoscopy when felt safe. She was advised to call if new pulmonary symptoms were to develop. Return to clinic in 4 weeks, or sooner with concerns. CC: Davis Ivan Portions of this report were transcribed using voice recognition software. Every effort wa s made to ensure accuracy; however, inadvertent computerized tufting machine fixer errors may be pre sent. documented in [...] | | | | | [place] [address] | | | | | | [phone] | | | | | | | | +--------+ + + + + | 06/08/ | Office | Physical Medicine | Rocky Santos, | | | 2019 | Visit | and Rehabilitation | MD [address] | | | | | | [place] | | | | | | [address] | | | | | | | | +--------+ + + + + | 06/16/ | Appointment | Pulmonology | Eveline Jaffe | | 2019 | | | MD [address] | | | | | | [address] | | | | | | [place] [address] | | | | | | [phone] | | | | | | | | +--------+ + + + + | 06/16/ | Office | Pulmonology | Ld Eveline | | | 2019 | Visit | | MD Raul [address] | | | | | | [address] [address] | | | | | | [place] [address] | | | | | | [phone] | | | | | | | | +--------+ + + + + | 08/24/ | Office | Cardiology | Anisha Lopez DO | | | 2019 | Visit | | [address] | | | | | | [place] | | | | | | [address] | | | | | | | | +--------+ + + + + +--------+---------+--------+ + + | Name | Type | Priori | Associated Diagnoses | Order Schedule | | | | ty | | | +--------+---------+--------+ + + | FL UGI | Imaging | Routin | Cough | Expected: | | | | e | | 09/07/2014, Expires: | | | | | | 09/07/2015 | +--------+---------+--------+ + + documented as of this encounter Results VAS Lower Extremity Venous Left (09/07/2014 4:00 PM PDT) + + | Specimen | + + | | + + + + + | Narrative | Performed At | + + + | VAS LOWER EXTREMITY VENOUS LEFT 09/07/2014 3:37 PM HISTORY: New | [facility] | | onset of left lower extremity edema in last 24 hours in pt with | [facility] | | recurrent lung cancer. COMPARISON: None. PROTOCOL: Candelaria scale | [facility] | | and Doppler images of the left lower extremity veins. FINDINGS: | - IMAGING | | The left common femoral, greater saphenous, profunda femoral, | | | superficial femoral, and popliteal veins demonstrate normal flow, | | | augmentation, and compression. Incidental evaluation of the right | | | common femoral vein demonstrates normal flow. IMPRESSION - No | | | evidence for DVT. A preliminary report was called to Dr. Piña | | | Claudia's nurse 1604 p.m. by the handling tech. Dictated and | | | Signed by: Matheus Kapadia MD Electronically signed: 09/07/2014 4:43 PM | | | | | + + + + + | Procedure Note | + + | Fabián, Rad Results In - 09/07/2014 4:46 PM PDT VAS LOWER EXTREMITY VENOUS LEFT | | 09/07/2014 3:37 PM HISTORY: New onset of left lower extremity edema in last 24 hours in pt | | withrecurrent lung cancer.COMPARISON: None.PROTOCOL: Candelaria scale and Doppler images of | | the left lower extremity veins.FINDINGS:The left common femoral, greater saphenous, | | profunda femoral, superficialfemoral, and popliteal veins demonstrate normal flow, | | augmentation, andcompression.Incidental evaluation of the right common femoral vein | | demonstrates normal flow.IMPRESSION -No evidence for DVT.A preliminary report was called | | to Dr. Ayana Taylor's nurse 1604 p.m. bythe handling tech.Dictated and Signed by: | | Matheus Kapadia MD Electronically signed: 09/07/2014 4:43 PM | |FINDINGS: | |The left common femoral, greater saphenous, profunda femoral, superficial | |femoral, and popliteal veins demonstrate normal flow, augmentation, and | |compression. | | | |Incidental evaluation of the right common femoral vein demonstrates normal flow. | | | |IMPRESSION - | |No evidence for DVT. | | | |A preliminary report was called to Dr. Ayana Taylor's nurse 1604 p.m. by | |the handling tech. | | | |Dictated and Signed by: Matheus Kapadia MD | | Electronically signed: 09/07/2014 4:43 PM | + + + + + + + | Performing | Address | City/State/Zipcode | Phone Number | | Organization | | | | + + + + + | [facility] | [address] | [place] | [phone] | | [facility] | | [address] | | | - IMAGING | | | | + + + + + documented in this encounter Visit Diagnoses + + | Diagnosis | + + | Cough - Primary | + + | Leg edema, left Edema | + + | COPD (chronic obstructive pulmonary disease) Chronic airway obstruction, not | | elsewhere classified | + + | Recurrent squamous cell carcinoma of lung, right (HCC) | + + | Gastroesophageal reflux disease with esophagitis | + + documented in this encounter
--- OUTSIDE RECORDS SUMMARY | ~2019-05-05 | XMS | Encounter Summary ---
Demographics + + + | Address | [address] | | | [place] [address] | + + + | Home Phone [...] [place] | | | | | [address] | | + + + + + Care Team Providers + +------+ + | Care Molder Meat Name | Role | Phone | + [...] | | | hand, | | [place] [address] | | | | | unspecified | | Phone: | | | | | osteoarthrit | | [phone] | | | | | is type | | Fax: | | | | | Osteoarthrit | | [phone] | | | | | is of [...] | | | | | | | AR REPAIR | | | | | | | INTERCARP/CA | | | | | | | RP-METACARP | | | | | | | JT | | | +--------+--------+ + + + + Encounter Details +--------+ + + + + | Date | Type | Department | Care Team | Description | +--------+ + + + + | 03/20/ | Hospital | [facility] | Giuliano Padilla, | | | 2014 | Encounter | MED CTR XRAY [address] | [address] [facility] | | | | | [place] | [place] | | | | | [place] [address] | [id number] | | | | | [phone] | | | +--------+ + + + [...] | 2018 | Visit | | [address] | | | | | | [address] | | | | | | [place] [address] | | | | | | [phone] | | | | | | | | +--------+ + + + + | 06/08/ | Office | Physical Medicine | Rocky Santos, | | | 2019 | Visit | and Rehabilitation | MD [address] | | | | | | [place] | | | | | | [address] | | | | | | | | +--------+ + + + + | 06/16/ | Appointment | Pulmonology | Eveline Jaffe | | | 2019 | | | MD [address] | | | | | | [address] | | | | | | [place] [address] | | | | | | [phone] | | | | | | | | +--------+ + + + + | 06/16/ | Office | Pulmonology | Eveline Jaffe | | | 2019 | Visit | | Sherrin, MD [address] | | | | | | [address] [address] [place] | | | | | | [place] [address] | | | | | | [phone] | | | | | | | | +--------+ + + + + | 08/24/ | Office | Cardiology | Anisha Lopez DO | | | 2019 | Visit | | [address] | | | | | | [place] | | | | | | [address] | | | | | | | [...]
--- OUTSIDE RECORDS SUMMARY | ~2019-05-05 | XMS | Encounter Summary ---
Demographics + + + | Address | [address] | | | [place] [address] | + + + | Home Phone [...] [place] | | | | | [address] | | + + + + + Care Team Providers + +------+ + | Care Boat Operator Name | Role | Phone | + +------+ + | Davis Ivan MD | PCP | | + +------+ + Reason for Visit Service/Procedure (Routine) +--------+--------+ + + + + | Status | Reason | Specialty | Diagnoses / | Referred By | Referred To | | | | | Procedures | Contact | Contact | +--------+--------+ + + + + | Closed | | Radiation | Diagnoses | [facility] | [facility] | | | | Oncology | Malignant | Radiation | Radiation | | | | | neoplasm of | Oncology | Oncology [address] | | | | | bronchus and | [address] | | | | | lung, | [place] | [place], | | | | | unspecified | [place], [place] | [place] [address] | | | | | site | [address] | Phone: | | | | | Procedures | Phone: | [phone] | | | | | CHG | [phone] | Fax: | | | | | [place] | Fax: | [phone] | | | | | NGEMENT,5 | [phone] | | | | | | TX'S CHG | | | | | | | RADIATION | | | | | | | THERAPY PLAN | | | | | | | COMPLEX | | | | | | | CHG INTEN | | | | | | | MOD | | | | | | | RADIOTHER | | | | | | | PLAN W/DOSE | | | | | | | VOL HIST | | | | | | | CHG SET RADN | | | | | | | THERAPY | | | | | | | FIELD | | | | | | | COMPLEX CHG | | | | | | | RADN | | | | | | | TREATMENT | | | | | | | AID(S) | | | | | | | COMPLX CHG | | | | | | | SET RADN | | | | | | | THERAPY | | | | | | | FIELD SIMPLE | | | | | | | CHG | | | | | | | RADIATION | | | | | | | THERAPY,DOSI | | | | | | | METRY PLAN | | | | | | | CHG MLC IMRT | | | | | | | DESIGN & | | | | | | | CONSTRUCTION | | | | | | | PER IMRT | | | | | | | PLAN CHG | | | | | | | INTEN MOD | | | | | | | RADIOTHER | | | | | | | PLAN, | | | | | | | SIN/MULT | | | | | | | FIELD | | | +--------+--------+ + + + + Encounter Details +--------+ + + + + | Date | Type | Department | Care Team | Description | +--------+ + + + + | 08/22/ | Hospital | [facility] | Jimmy Banegas DO | | | 2013 | Encounter | MED [facility]ATION | [address] | | | | | ONCOLOGY [address] | [place] | | | | | [place], | [address] | | | | | [place] [address] | | | | | | [phone] | | | +--------+ + + + [...] | 2018 | Visit | | [address] | | | | | | [facility] | | | | | | [place] [address] | | | | | | [phone] | | | | | | | | +--------+ + + + + | 06/08/ | Office | Physical Medicine | Rocky Santos, | | | 2019 | Visit | and Rehabilitation | MD Nichole Hind[address] | | | | | | [place] | | | | | | [address] | | | | | | | | +--------+ + + + + | 06/16/ | Appointment | Pulmonology | Eveline Jaffe | | | 2019 | | | MD Nichole Carter | | | | | | [address] [place] | | | | | | [place] [address] | | | | | | [phone] | | | | | | | | +--------+ + + + + | 06/16/ | Office | Pulmonology | Eveline Jaffe | | | 2019 | Visit | | MD Nichole Carter [address] | | | | | | [address] [place] | | | | | | [place] [address] | | | | | | [phone] | | | | | | | | +--------+ + + + + | 08/24/ | Office | Cardiology | Anisha Lopez DO | | | 2020 | Visit | | [address] | | | | | | [place] | | | | | | [address] | | | | | | | | +--------+ + + + + documented as of this encounter Visit Diagnoses Not on filedocumented in this encounter"
--- OUTSIDE RECORDS SUMMARY | ~2019-05-05 | XMS | Encounter Summary ---
Demographics + + + | Address | [address] | | | [place] [address] | + + + | Home Phone [...] [place] | | | | | [address] | | + + + + + Care Team Providers + +------+ + | Care Yeast Stacker Name | Role | Phone | [...] + + | 08/22/ | Hospital | [facility] | Adelita Lu MD | Recurrent squamous | | 2015 | Encounter | MED CTR MEDICAL | [address] | cell carcinoma of | | | | ONCOLOGY CLINIC [address] | [place] | lung, unspecified | | | | [place] | [address] | laterality (HCC) | | | | [place] [address] | [phone] | (Primary Dx) | | | | [phone] | | | +--------+ + + + [...] 08/22/2014 10:19 AM PDT Hem-Onc Progress Note [facility] Patient name:Thea Carmona : 1945 Age: 69 y.o. CSN: [id number] Date of Service: 08/22/2014 Identifying Statement: Thea Carmona is a 69 y.o. female from [facility] with clinical stage II, non-small [...] 2.CT-guided biopsy by interventional radiology at [facility] of the right lung massshows squamous cell [...] Dr. Mace , thoracic surgeon at [facility] for consideration of broncho scopy, [...] [facility]) [facility] pred[facility]one [facility]ate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 [facility]ATORY [facility]ERAP[facility]Med S9 auto CPAP 5-9 cm H2O. Heater and Humidifier . All necessary supplies. AHI 11.6. Diagnosis Code(s)327.23, also has co morbid hypertension , history of stroke. Length of Need 99 months. Please send order to [facility]. RESPIRATORY THERAPY SUPPLIES [facility] Respironics autotitrating CPAP at 5-9 cm H2O [...] K/uL Imaging: PET/CT scan June 2014: [facility]: Necrotic right lung lesion wit [...] this chart may have been created with [employer] voice recognition software. Occasi onal wrong-word or [...] | | | | | [place] [address] | | | | | | [phone] | | | | | | | | +--------+ + + + + | 06/08/ | Office | Physical Medicine | Rocky Santos, | | | 2019 | Visit | and Rehabilitation | MD [address] | | | | | | [place] | | | | | | [address] | | | | | | | | +--------+ + + + + | 06/16/ | Appointment | Pulmonology | Eveline Jaffe | | 2019 | | | MD [address]ole [address] | | | | | | [place] | | | | | | [place] [address] | | | | | | [phone] | | | | | | | | +--------+ + + + + | 06/16/ | Office | Pulmonology | Ld Eveline | | | 2019 | Visit | | MD [address]ole [address] | | | | | | [place] | | | | | | [place] [address] | | | | | | [phone] | | | | | | | | +--------+ + + + + | 08/24/ | Office | Cardiology | Anisha Lopez DO | | | 2019 | Visit | | [address] | | | | | | [place] | | | | | | [address] | | | | | | | | +--------+ + + + + documented as of this encounter Visit Diagnoses + + | Diagnosis | + + | Recurrent squamous cell carcinoma of lung, unspecified laterality (HCC) - Primary | + + documented in this encounter
--- OUTSIDE RECORDS SUMMARY | ~2019-05-05 | XMS | Encounter Summary ---
Demographics + + + | Address | [address] | | | [place] [address] | + + + | Home Phone | | + + + | Preferred Language | Unknown | + + + | Marital Status | | + + + | Yazidism Affiliation | Unknown | + + + | Race | Unknown | + + + | Ethnic Group | Unknown | + + + Author + + + | Author | [facility] | | | and [place] | + + + | Organization | [facility] | | [...] [place] | | | | | [address] | | + + + + + Care Team Providers + +------+ + | Care District Customs Director Name | Role | Phone | [...] | | | | [place] | [phone] | | | | | [address] | | | | | | [phone] | | | +--------+ + + + [...] | 2019 | Visit | | [address] | | | | | | [facility] | | | | | | [place] [address] | | | | | | [phone] | | | | | | | | +--------+ + + + + | 06/08/ | Office | Physical Medicine | Rocky Santos, | | | 2019 | Visit | and Rehabilitation | MD [address]are[address] | | | | | | [place] | | | | | | [address] | | | | | | | | +--------+ + + + + | 06/16/ | Appointment | Pulmonology | Eveline Jaffe | | | 2019 | | | MD [address]ole [address] | | | | | | [address] [place] | | | | | | [place] [address] | | | | | | [phone] | | | | | | | | +--------+ + + + + | 06/16/ | Office | Pulmonology | Eveline Jaffe | | | 2019 | Visit | | MD [address]ole [address] | | | | | | [address] [place] | | | | | | [place] [address] | | | | | | [phone] | | | | | | | | +--------+ + + + + | 08/24/ | Office | Cardiology | Anisha Lopez DO | | | 2019 | Visit | | [address] | | | | | | [place] | | | | | | [address] | | | | | | | [...]
--- OUTSIDE RECORDS SUMMARY | ~2019-05-05 | XMS | Encounter Summary ---
Demographics + + + | Address | [address] | | | [place] [address] | + + + | Home Phone [...] + + | Author | [facility] | | | and [place] | + + + | Organization | [facility] | | | [...] [place] | | | | | [address] | | + + + + + Care Team Providers + +------+ + | Care Shale Planer Operator Name | Role | Phone | [...] + + | 09/12/ | Hospital | 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 | | | | INFUSION [address] | [place], [place] | lung, unspecified | | | | [place], | [address] | laterality (HCC); | | | | [place] [address] | [phone] | Pulmonary nodules | | | | [phone] | | | +--------+ + + + [...] documented as of this encounter Progress Notes Sujata Baca RN - 09/12/2014 12:50 PM PDTPatient discharged in satisfactory condition. Discharged ambulatory. With family. To home. Verified that patient has antinausea [...] | 2018 | Visit | | [address] | | | | | | [facility] | | | | | | [place] [address] | | | | | | [phone] | | | | | | | | +--------+ + + + + | 06/08/ | Office | Physical Medicine | Rocky Santos, | | | 2019 | Visit | and Rehabilitation | MD [address] | | | | | | [place] | | | | | | [address] | | | | | | | | +--------+ + + + + | 06/16/ | Appointment | Pulmonology | Eveline Jaffe | | | 2019 | | | MD [address]ole [address] | | | | | | [address] [place] | | | | | | [place] [address] | | | | | | [phone] | | | | | | | | +--------+ + + + + | 06/16/ | Office | Pulmonology | Eveline Jaffe | | | 2019 | Visit | | MD [address]ole [address] | | | | | | [address] [place] | | | | | | [place] [address] | | | | | | [phone] | | | | | | | | +--------+ + + + + | 08/24/ | Office | Cardiology | Anisha Lopez DO | | | 2019 | Visit | | [address] | | | | | | [place] | | | | | | [address] | | | | | | | | +--------+ + + + + documented as of this encounter Procedures + +--------+ + + + | Procedure Name | Priori | Date/Time | Associated Diagnosis | Comments | | | ty | | | | + +--------+ + + + | CBC WITH | STAT | 09/12/2014 | Recurrent squamous | Results for this | | DIFFERENTIAL | | 9:06 AM | cell carcinoma of | procedure are in the | | | | PDT | lung, unspecified | results section. | | | | | laterality (HCC) | | | | | | Pulmonary nodules | | + +--------+ + + + | COMPREHENSIVE | STAT | 09/12/2014 | Recurrent squamous | Results for this | | METABOLIC PANEL | | 9:06 AM | cell carcinoma of | procedure are in the | | | | PDT | lung, unspecified | results section. | | | | | laterality (HCC) | | | | | | Pulmonary nodules | | + +--------+ + + + documented in this encounter Results CBC with Differential (09/12/2014 9:06 AM PDT) + + + + + + | Component | Value | Ref Range | Performed | Pathologist | | | | | At | Signature | + + + + + + | WBC | 2.5 (LL)Comment: | 4.0 - 11.0 K/uL | [facility] | | | | Consistent with previous | | [facility] | | | | results. | | MEDICAL | | | | | | CENTER - | | | | | | LABORATORY | | + + + + + + | RBC | 3.19 (L) | 3.70 - 5.20 | [facility] | | | | | M/uL | [facility] | | | | | | MEDICAL | | | | | | CENTER - | | | | | | LABORATORY | | + + + + + + | Hemoglobin | 10.2 (L) | 11.5 - 16.0 | [facility] | | | | | g/dL | [facility] | | | | | | MEDICAL | | | | | | CENTER - | | | | | | LABORATORY | | + + + + + + | Hematocrit | 31.6 (L) | 34.0 - 47.0 % | [facility] | | | | | | [facility] | | | | | | MEDICAL | | | | | | CENTER - | | | | | | LABORATORY | | + + + + + + | MCV | 98.8 | 83.0 - 101.0 fL | [facility] | | | | | | [facility] | | | | | | MEDICAL | | | | | | CENTER - | | | | | | LABORATORY | | + + + + + + | MCH | 31.9 | 28.0 - 35.0 pg | [facility] | | | | | | [facility] | | | | | | MEDICAL | | | | | | CENTER - | | | | | | LABORATORY | | + + + + + + | MCHC | 32.3 | 32.0 - 36.0 | [facility] | [...] + + + + | Platelet | 101 (L) | 140 - 440 K/uL | [facility] | | | Count | | | [facility] | | | | | | MEDICAL | | | | | | CENTER - | | | | | | LABORATORY | | + + + + + + | MPV | 8.4 | fL | [facility] | | | | | | [facility] | | [facility] | [facility] | | | | | | C[facility] - | | | | | | LABORATORY | | + + + + + + | % | 55.8 | 45.0 - 82.0 % | [facility] | | | Neutrophils | | | [facility] | | | | | | MEDICAL | | | | | | CENTER - | | | | | | LABORATORY | | + + + + + + | % | 30.2 | 20.0 - 45.0 % | [facility] | | | Lymphocytes | | | [facility] | | | | | | MEDICAL | | | | | | CENTER - | | | | | | LABORATORY | | + + + + + + | % Monocytes | 11.4 | 4.0 - 12.0 % | [facility] | | | | | | [facility] | | | | | | MEDICAL | | | | | | CENTER - | | | | | | LABORATORY | | + + + + + + | % | 1.9 | 0.0 - 5.0 % | [facility] [...] + + + + | Absolute | 1.40 (L) | 1.80 - 8.50 | [facility] [...] + | [facility] | [address] | [place] | [phone] | | [facility] | | [address] | | | - LABORATORY | | | | + + + + + Comprehensive Metabolic Panel (09/12/2014 9:06 AM PDT) + + + + + [...] + + + | Anion Gap | 4 | 3 - 16 mmol/L | [facility] | | | | | | [facility] | | | | | | MEDICAL | | | | | | CENTER - | | | | | | LABORATORY | | + + + + + + | Glucose | 89 | 70 - 109 mg/dL | [facility] | | | | | | [facility] | | | | | | MEDICAL | | | | | | CENTER - | | | | | | LABORATORY | | + + + + + + | BUN | 20 (H) | 7 - 18 mg/dL | [facility] [...] mL/min/1.73m2 | [facility] | | | [place] | RATE,ESTIMATED | | MEDICAL | | | | mL/min/1.14g1Iqyg than | | CENTER - | | [...] + + + + | Calcium | 8.7 | 8.3 - 10.5 | [facility] | | | | | mg/dL | [facility] | | | | | | MEDICAL | | | | | | CENTER - | | | | | | LABORATORY | | + + + + + + | Albumin | 3.2 | 3.2 - 5.0 g/dL | [facility] | | | | | | [facility] | | | | [...] + + + + | Total | 5.9 (L) | 6.0 - 7.8 g/dL | [...] + + | ALT | 22 | 6 - 45 U/L | [facility] | | | | | | [facility] | | | | | | MEDICAL | | | | | | CENTER - | | | | | | LABORATORY | | + + + + + + | Alkaline | 58 | 40 - 110 U/L | [facility] | | | Phosphatase | | | [facility] | | | | | | MEDICAL | | | | | | CENTER - | | | | | | LABORATORY | | + + + + + + | Globulin | 2.7 | g/dL | [facility] | | | [...] + + + + | BUN/Creatin | 25.3 | | [facility] | | | ine [...] + | [facility] | [address] | [place] | [phone] | | [facility] | | [address] | | | - LABORATORY | | [...] | + +---------+ +--------+-------+------+ | CARBOplatin (PARAPLATIN) 200 mg | New Bag | 09/13/19 | 200 mg | 540 | | | in sodium chloride 0.9% 250 mL | | 15 12:07 | | mL/hr | | | chemo infusion 200 mg (Target | | PM PDT | | | | | AUC = 2), Intravenous, Administer | | | | | | | over 30 Minutes, ONCE, Tue | | | | | | | 09/12/14 at 1200, For 1 dose, AUC | | | | | | | 2= 196.7 mg; rounded to 200 per | | | | | | [...] +-------+---+---+ | diphenhydrAMINE (BENADRYL) | Given | 09/13/19 | 25 mg | | | | injection 25 mg 25 mg, | | 15 10:26 | | | | | Intravenous, ONCE, 09/12/14 at | | AM PDT | | | | | 1045, For 1 dose, Administer 30 | | | | | | | minutes prior to PACLitaxel ., | | | | | | + +-------+ +-------+---+---+ +---+---+ | | | +---+---+ + +-------+ +-------+---+---+ | famotidine (PEPCID) injection | Given | 09/13/19 | 20 mg | | | | 20 mg 20 mg, Intravenous, ONCE, | | 15 10:26 | | | | | 09/12/14 at 1045, For 1 dose, | | AM PDT [...] 100 units/mL flush 500 | Given | 09/13/19 | 500 | | | | Units 500 Units (5 mL), | | 15 12:45 | Units | | | | Intracatheter, PRN, Line Care, | | PM PDT | | | | | Starting 09/12/14 at 1016 | | | | | | + +-------+ +-------+---+---+ +---+---+ | | | +---+---+ + +---------+ +-------+--------+---+ | PACLitaxel (TAXOL) 81 mg in | New Bag | 09/13/19 | 81 mg | 263.5 | | | sodium chloride 0.9% 250 mL chemo | | 15 11:03 | | mL/hr | | | infusion 81 mg (rounded from | | AM PDT | | | | | 80.1 mg = 45 mg/m2 | | | | | | | 1.78 m2 Treatment plan recorded | | | | | | | BSA), Intravenous, Administer | | | | | | | over 1 Hours, ONCE, 09/12/14 | | | | | | | at 1100, For 1 dose, | | | | [...] (ALOXI) 0.25 mg, | New Bag | 09/13/19 | | 209.3 | | | dexamethasone (DECADRON) 8 mg in | | 15 10:28 | | mL/hr | | | sodium chloride 0.9% 50 mL IVPB | | AM PDT | | | | | Intravenous, Administer over 16 | | | | | | | Minutes, ONCE, 09/12/14 at | | | | | | | 1045, For 1 dose | | | | | | + +---------+ +---+--------+---+ +---+---+ | | | +---+---+ documented in this encounter"
--- OUTSIDE RECORDS SUMMARY | ~2019-05-05 | XMS | Encounter Summary ---
Demographics + + + | Address | [address] | | | [place] [address] | + + + | Home Phone [...] [place] | | | | | [address] | | + + + + + Care Team Providers + +------+ + | Care Hunter Guide Name | Role | Phone | + +------+ + | Davis Ivan MD | PCP | | + +------+ + Reason for Visit + + + | Reason | Comments | + + + | Pre-op Exam | Preop Right 1st [facility]MC Arthroplasty DOS:10/27/2017 *CURRENT MED | | | LIST* | + + + Encounter Details +--------+---------+ + + + | Date | Type | Department | Care Team | Description | +--------+---------+ + + + | 10/22/ | Office | [facility] | Giuliano Padilla, | Hyperlipidemia, | | 2018 | Visit | ORTHOPEDIC SURGERY | MD Germania ZAPATA | unspecified | | | | [address] [facility] | [place] | hyperlipidemia type | | | | [place] | [address] | (Primary Dx); | | | | [address] | | Hypertension, | | | | [phone] | | unspecified type; Hx | | | | | | of pulmonary | | | | | | emphysema; Arthritis | | | | | | pain of hand; | | | | | | Arthralgia of right | | | | | | hand; Preop testing | +--------+---------+ + + + Social History [...] + + + | Blood Pressure | 133/76 | 10/22/2017 1:01 PM | | | | | PDT | | + + + + + | Pulse | 77 | 10/22/2017 1:01 PM | | | | | PDT | | + + + + + | Temperature | 36.9 C (98.5 F) | 10/22/2017 1:01 PM | | | | | PDT | | + + + + + | Respiratory Rate | 20 | 10/22/2017 1:01 PM | | | | | PDT | | + + + + + | Oxygen Saturation | 95% | 10/22/2017 1:01 PM | | | | | PDT | | + + + + + | Inhaled Oxygen | - | - | | | Concentration | | | | + + + + + | Weight | 60.8 kg (134 lb) | 10/22/2017 1:01 PM | | | | | PDT | | + + + + + | Height | 157.5 cm (5' 2") | 10/22/2017 1:01 PM | | | | | PDT | | + + + + + | Body Mass Index | 24.51 | 10/22/2017 1:01 PM | | | | | PDT | | + + + + + documented in this encounter Progress Notes Giuliano Padilla MD - 10/22/2017 1:30 PM PDTPatient returns for preop right first cmc arth roplasty We again went over the goals of the surgery with the inherent risks and reasonable expectat ions for recovery She did weill with the tightrope suspension on her opposite hand We discussed doing that if necessary for stability but also the role of APL to FCR suspensi onplasty She understands and agrees with plan meds reviewed All questions answered History and physical pending documented in this encounter Plan of Treatment [...] | | | | | [place] [address] | | | | | | [phone] | | | | | | | | +--------+ + + + + | 06/08/ | Office | Physical Medicine | Rocky Santos, | | | 2019 | Visit | and Rehabilitation | [address] | | | | | | [place] | | | | | | [id number] | | | | | | | | +--------+ + + + + | 06/16/ | Appointment | Pulmonology | Eveline Jaffe | | | 2019 | | | MD Nichole Carter | | | | | | [address] | | | | | | [place], [place] [address] | | | | | | [phone] | | | | | | | | +--------+ + + + + | 06/16/ | Office | Pulmonology | Eveline Jaffe | | | 2019 | Visit | | MD Nichole Carter | | | | | | [address] | | | | | | [place] [address] | | | | | | [phone] | | | | | | | | +--------+ + + + + | 08/24/ | Office | Cardiology | Anisha Lopez DO | | | 2019 | Visit | | [address] | | | | | | [place] | | | | | | [address] | | | | | | | | +--------+ + + + + documented as of this encounter Procedures + +--------+ + + + | Procedure Name | Priori | Date/Time | Associated Diagnosis | Comments | | | ty | | | | + +--------+ + + + | ECG 12 LEAD | Routin | 10/22/2017 | Hyperlipidemia, | Results for this | | | e | 1:49 PM | unspecified | procedure are in [...] + + documented in this encounter Results Hemoglobin (10/22/2017 2:18 PM PDT) + +-------+ + + + | Component | Value | Ref Range | Performed | Pathologist | | | | | At | Signature | + +-------+ + + + | Hemoglobin | 14.5 | 11.5 - 16.0 | [facility] | | | | | g/dL | [facility] | | | | | [...] ST. | [address] | [place] | [phone] | | [facility] | | [address] | | | - LABORATORY | | | | + + + + + Basic Metabolic Panel (10/22/2017 2:18 PM PDT) + + + + + [...] + + | Cl | 105 | 98 - 109 mmol/L | [facility] | | | [facility] | | [facility] | [facility] | | | | [facility] - | | | | | | LABORATORY | | + + + + + + | CO2 | 23 (L) | 24 - 31 mmol/L | [facility] | | | | | | [facility] | | | | | | [facility] | | | | | | CENTER - | | | | | | LABORATORY | | + + + + + + | Anion Gap | 13 | 3 - 16 mmol/L | [facility] | | | | | | [facility] | | | | | | [facility]ICAL | | | | | | CENTER - | | | | | | LABORATORY | | + + + + + + | Glucose | 84 | 70 - 109 mg/dL | [facility] | | [facility] | | [facility] | [facility] | | | | | | C[facility] - | | | | | | LABORATORY | | + + + + + + | BUN | 16 | 7 - 18 mg/dL | [facility] | | | | | | [facility] | | | | | | [facility] | | | | | | CENTER - | | | | | | LABORATORY | | + + + + + + | Creatinine | 1.10 | 0.60 - 1.30 | [facility] | | | | | mg/dL | [facility] | | | | | | MEDICAL | | | | | | CENTER - | | | | | | LABORATORY | | + + + + + + | eGFR if not | 49 (L)Comment: | >=60 | [facility] | | | [place] | GLOMERULAR FILTRATION | mL/min/1.73m2 | [facility] | | | [place] | RATE,ESTIMATED | | MEDICAL | | | | mL/min/1.46v5Aqjt than | | CENTER - | | [...] + + | Calcium | 9.7 | 8.3 - 10.5 | [facility] | | | | | mg/dL | [facility] | | | | | | MEDICAL | | | | | | CENTER - | | | | | | LABORATORY | | + + + + + + | BUN/Creatin | 14.5 | | [facility] | | | ine [...] + | [facility] | [address] | [place] | [phone] | | [facility] | | [address] | | | - LABORATORY | | | | + + + + + Platelet Count (10/22/2017 2:18 PM PDT) + +---------+ + + + | Component | Value | Ref Range | Performed | Pathologist | | | | | At | Signature | + +---------+ + + + | Platelet | 458 (H) | 140 - 440 K/uL | [facility] | | | Count | | | [facility] | | | | | | MEDICAL | | | | | | CENTER - | | | | | | LABORATORY | | + +---------+ + + + | MPV | 7.3 | fL | [facility] | | | | | [...] [address] | [place] | [phone] | | [facility] | | [address] | | | - LABORATORY | | | | + + + + + XR Chest PA and Lateral (10/22/2017 2:10 [...] + +---------+ + + ECG 12 lead (10/22/2017 1:49 PM PDT) + + + + + + | Component | Value | Ref Range | Performed | Pathologist | | | | | At | Signature | + + + + + + | VENTRICULAR | 68 | BPM | [facility] | | | RATE EKG | | | | | + + + + + + | ATRIAL RATE | 68 | BPM | [facility] | | + + + + + + | P-R | 188 | ms | [facility] | | | INTERVAL | | | | | + + + + + + | QRS | 102 | ms | [facility] | | | DURATION | | | | | + + + + + + | Q-T | 404 | ms | [facility] | | | INTERVAL | | | | | + + + + + + | Q-T | 429 | ms | [facility] | | | INTERVAL | | | | | | (CORRECTED) | | | | | + + + + + + | P WAVE AXIS | 69 | degrees | [facility] | | + + + + + + | T AXIS | 42 | degrees | [facility] | | + + + + + + | INTERPRETAT | Normal sinus | | [facility] | | | ION TEXT | rhythmNormal ECGNo | | | | | | previous ECGs | | | | | | availableConfirmed by | | | | | | DIANA SMART MD ([id number]) | | | | | | on 10/23/2017 6:58:31 AM | | | | + + + + + + + + | Specimen | + + | | + + + + + | Narrative | Performed At | + + + | | | + + + + +---------+ + + | Performing | Address | City/State/Zipcode | Phone Number | | Organization | | | | + +---------+ + + | [facility] | | | | + +---------+ + + documented in this encounter Visit Diagnoses + + | Diagnosis | + + | Hyperlipidemia, unspecified hyperlipidemia type - Primary | + + | Hypertension, unspecified type [...]
--- OUTSIDE RECORDS SUMMARY | ~2019-05-05 | XMS | Encounter Summary ---
Demographics + + + | Address | [address] | | | [place] [address] | + + + | Home Phone [...] [place] | | | | | [address] | | + + + + + Care Team Providers + +------+ + | Care Financial Controller Name | Role | Phone | + [...] + + | 06/09/ | Office | [facility] [place] | Offenstein, | Pulmonary nodule | | 2013 | Visit | PULMONARY [address] | Ayana Looney MD | (Primary Dx); | | | | [place], | | Rheumatoid arthritis | | | | [place] [address] | | ([facility]); Snoring | | | | [phone] | | | +--------+---------+ + + + [...] Lien Garciaa [place] [facility] [address] [place], [address] HPI Thea Carmona is a 68 y.o. [...] arthritis on prednisone and methotrexate, Dr. 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 High concern for this fungal species, [facility] seems to have limited data for treatment, and that available seems to suggest few medicat ions are very effective. I am going to consult with the ID specialist at [place] regard ing best approaches, and if we [...] until it can be refilled by her leather stretcher. This may be a blessing given the [...] made to ensure accuracy; however, inadvertent computerized supervisor cell room errors may be pre sent. documented in t his encounter Plan of Treatment +--------+ + + + + | Date | Type | Specialty | Care Team | Description | +--------+ + + + + | 05/30/ | Office | Rheumatology | Santosh Sumner, | | | 2018 | Visit | | [address] | | | | | | [facility] | | | | | | [place] [address] | | | | | | [phone] | | | | | | | | +--------+ + + + + | 06/08/ | Office | Physical Medicine | Rocky Santos, | | | 2019 | Visit | and Rehabilitation | MD Nichole Hind[address] | | | | | | [place] | | | | | | [address] | | | | | | | | +--------+ + + + + | 06/16/ | Appointment | Pulmonology | Eveline Jaffe | | | 2019 | | | MD Nichole Carter | | | | | | [address] | | | | | | [place] [address] | | | | | | [phone] | | | | | | | | +--------+ + + + + | 06/16/ | Office | Pulmonology | Eveline Jaffe | | | 2019 | Visit | | MD Nichole Carter [address] | | | | | | [address] | | | | | | [place] [address] | | | | | | [phone] | | | | | | | | +--------+ + + + + | 08/24/ | Office | Cardiology | Anisha Lopez DO | | | 2019 | Visit | | [address] | | | | | | [place], [place] | | | | | | [address] | | | | | | | [...]
--- OUTSIDE RECORDS SUMMARY | ~2019-05-05 | XMS | Encounter Summary ---
Demographics + + + | Address | [address] | | | [place] [address] | + + + | Home Phone [...] [place] | | | | | [address] | | + + + + + Care Team Providers + +------+ + | Care Airplane Pilot Chief Name | Role | Phone | + [...] Disease / | Malignant | Davis | Ayaan Looney, | | | | Pulmonology | neoplasm of | MD [address] | | | | | | bronchus and | [address] | | | | | | lung, | [address] | | | | | | unspecified | [place], | | | | | | site | [place] | | | | | | Procedures | [address] | | | | | | OFFICE VISIT | Phone: | | | | | | REGULAR | [phone] | | | | | | | Fax: | | | | | | | [phone] | | +--------+--------+ + + + + Encounter Details +--------+---------+ + + + | Date | Type | Department | Care Team | Description | +--------+---------+ + + + | 11/11/ | Office | [facility] | [place], | MARCE (obstructive | | 2013 | Visit | PULMONARY [address] | Ayana Looney MD | sleep apnea) | | | | [place], | | (Primary Dx); COPD | | | | [place] [address] | | (chronic obstructive | | | | [phone] | | pulmonary disease); | | | [...] Diagnosis Date COPD (chronic obstructive pulmonary disease) (HCC) on albuterol Spondylolisthesis of cervical region Spinal stenosis has tried cortisone injections Osteoporosis Depression Pneumonia 2009 hospitalized 5 days Rheumatoid arthritis(714.0) ([facility]) on prednisone and methotrexate, Dr. 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 Respiratory Therapy Supplies [facility] [employer] S9 auto CPAP 5-9 cm H2O. Heater [...] normal CPAP Data: Dates: 10/11/13-11/09/13 Machine type: [employer] auto CPAP Home Health Company: In Home [...] continued struggles, we can refer to our [facility] CPAP clinic. 2.I reviewed how to appropriately [...] made to ensure accuracy; however, inadvertent computerized client service supervisor errors may be pre sent. Electronically signed by: Ayana Taylor MD 11/11/2013 14:09 documented in t his encounter Plan of Treatment +--------+ + + + + | Date | Type | Specialty | Care Team | Description | +--------+ + + + + | 05/30/ | Office | Rheumatology | Santosh Sumner, | | | 2019 | Visit | | [address] [address] | | | | | | [address] | | | | | | [place] [address] | | | | | | [phone] | | | | | | | | +--------+ + + + + | 06/08/ | Office | Physical Medicine | Rocky Santos, | | | 2019 | Visit | and Rehabilitation | MD [address] | | | | | | [place] | | | | | | [address] | | | | | | | | +--------+ + + + + | 06/16/ | Appointment | Pulmonology | Eveline Jaffe | | | 2019 | | | MD Nichole Carter | | | | | | [address] | | | | | | [place] [address] | | | | | | [phone] | | | | | | | | +--------+ + + + + | 06/16/ | Office | Pulmonology | Eveline Jaffe | | | 2019 | Visit | | MD Nichole Carter | | | | | | [address] | | | | | | [place] [address] | | | | | | [phone] | | | | | | | | +--------+ + + + + | 08/24/ | Office | Cardiology | Anisha Lopez DO | | | 2020 | Visit | | [address] | | | | | | [place] | | | | | | [address] | | | | | | | [...]
--- OUTSIDE RECORDS SUMMARY | ~2019-05-05 | XMS | Encounter Summary ---
Demographics + + + | Address | [address] | | | [place] [address] | + + + | Home Phone [...] [place] | | | | | [address] | | + + + + + Care Team Providers + +------+ + | Care Invoice Clerk Name | Role | Phone | [...] + + | Closed | Specialty | Cardiology | Diagnoses | Jared, | [facility] | | | Services | | Paroxysmal | Jf Knox MD | Cardiology | | | Required | | atrial | [address] | | | | | fibrillation | [address] | [place], | | | | | with rapid | [place], | [place] | | | | | ventricular | [place] [address] | [address] | | | | | response | Phone: | Phone: | | | | | ([facility]) Heart | [phone] | [phone] | | | | | | Fax: | Fax: | | | | | palpitations | [phone] | [phone] | | | | | Atrial | | | | | | | fibrillation | | | | | | | with RVR | | | | | | | ([facility]) | | | +--------+ + + + + + Reason for Visit + + + | Reason | Comments | + + + | Irregular Heart Beat | | + + + Auth/Cert +--------+--------+ [...] | | | left thumb | | [place], | | | | | Trigger | | [place] [id number] | | | | | finger, left | | Phone: | | | | | ring finger | | [phone] | | | | | Trigger | | Fax: | | | | | middle | | [phone] | | | | | finger of | | | | | | | left hand | | | | | | | Procedures | | | | | | | [place] [facility] | | | | | | [...] + + + + | 09/28/ | Emergency | [facility] | Jf Coleman, | Paroxysmal atrial | | 2019 | | [facility] | MD [address] | fibrillation with | | | | CENTER [address] | [place], [place] | rapid ventricular | | | | [place], [place] | [address] | response ([facility]) | | | | [address] | | (Primary Dx); Heart | | | | [phone] | | palpitations; Atrial | | | | | | fibrillation with | | | | | | RVR ([facility]) | +--------+ + + + + Social [...] + + + | Blood Pressure | 119/86 | 09/28/2018 3:28 PM | | | | | PDT | | + + + + + | Pulse | 85 | 09/28/2018 3:28 PM | | | | | PDT | | + + + + + | Temperature | 36.4 C (97.6 F) | 09/28/2018 1:35 PM | | | | | PDT | | + + + + + | Respiratory Rate | 23 | 09/28/2018 3:26 PM | | | | | PDT | | + + + + + | Oxygen Saturation | 94% | 09/28/2018 3:28 PM | | | | | PDT | | + + + + + | Inhaled Oxygen | - | - | | | Concentration | | | | + + + + + | Weight | 72.6 kg (160 lb) | 09/28/2018 1:35 PM | | | | | PDT | | + + + + + | Height | 157.5 cm (5' 2") | 09/28/2018 1:35 PM | | | | | PDT | | + + + + + | Body Mass Index | 29.26 | 09/28/2018 1:35 PM | | | | | PDT [...] documented as of this encounter Discharge Instructions AttachmentsThe following attachments cannot be sent through Care Everywhere.Living with Atr ial Fibrillation: Preventing Stroke (Mongolian)documented in this encounter Medications at Time of [...] | | | | | | type ([facility]) | | | | | | [...] | 2018 | Visit | | [address] | | | | | | [facility] | | | | | | [place] [address] | | | | | | [phone] | | | | | | | | +--------+ + + + + | 06/08/ | Office | Physical Medicine | Rocky Santos, | | | 2019 | Visit | and Rehabilitation | MD [address] | | | | | | [place] | | | | | | [address] | | | | | | | | +--------+ + + + + | 06/16/ | Appointment | Pulmonology | Eveline Jaffe | | | 2019 | | | MD [address] | | | | | | [address] [place] | | | | | | [place] [address] | | | | | | [phone] | | | | | | | | +--------+ + + + + | 06/16/ | Office | Pulmonology | Eveline Jaffe | | | 2019 | Visit | | MD [address] | | | | | | [address] [place] | | | | | | [place] [address] | | | | | | [phone] | | | | | | | | +--------+ + + + + | 08/24/ | Office | Cardiology | Anisha Lopez DO | | | 2020 | Visit | | [address] | | | | | | [place] | | | | | | [address] | | | | | | | | +--------+ + + + + + +------+--------+ + + | Name | Type | Priori | Associated Diagnoses | Date/Time | | | | ty | | | + +------+--------+ + + | ED INFORMATION | WILLIAM | Routin | | 09/28/2018 1:35 PM | | EXCHANGE | | e | | PDT | + +------+--------+ + + + + +--------+ + + | Name | Type | Priori | Associated Diagnoses | Order Schedule | | | | ty | | | + + +--------+ + + | * [facility] | Outpatient | Routin | Paroxysmal atrial | Ordered: 09/28/2018 | | Cardiology - [facility] | Referral | e | fibrillation with | | | Referral | | | rapid ventricular | | | | | | response (HCC) | | | | | | Heart palpitations | | | | | | Atrial fibrillation | | | | | | with RVR (HCC) | | + + +--------+ + + documented as of this encounter Procedures + +--------+ + + + | Procedure Name | Priori | Date/Time | Associated Diagnosis | Comments | | | ty | | | | + +--------+ + + + | ECG 12 LEAD | STAT | 09/28/2018 | | Results for this | | | | 2:48 PM | | procedure are in the | | | | PDT | | results section. | + +--------+ + + + | XR CHEST AP PORTABLE | STAT | 09/28/2018 | | Results for this | | | | 2:09 PM | | procedure are in the | | | | PDT | | results section. | + +--------+ + + + | TROPONIN I | STAT | 09/28/2018 | | Results for this | | | | 2:09 PM | | procedure are in the | | | | PDT | | results section. | + +--------+ + + + | PROTIME INR | STAT | 09/28/2018 | | Results for this | | | | 2:09 PM | | procedure are in the | | | | PDT | | results section. | + +--------+ + + + | CBC WITH | STAT | 09/28/2018 | | Results for this | | DIFFERENTIAL | | 2:09 PM | | procedure are in the | | | | PDT | | results section. | + +--------+ + + + | B TYPE NATRIURETIC | STAT | 09/28/2018 | | Results for this | | PEPTIDE | | 2:09 PM | | procedure are in the | | | | PDT | | results section. | + +--------+ + + + | COMPREHENSIVE | STAT | 09/28/2018 | | Results for this | | METABOLIC PANEL | | 2:09 PM | | procedure are in the | | | | PDT | | results section. | + +--------+ + + + | OXYGEN THERAPY | STAT | 09/28/2018 | | | | | | 1:36 PM | | | | | | PDT | | | + +--------+ + + + | ECG 12 LEAD | Routin | 09/28/2018 | | Results for this | | | e | 1:15 PM | | procedure are in the | | | | PDT | | results section. | + +--------+ + + + documented in this encounter Results ECG 12 lead (09/28/2018 2:48 PM PDT) + + + + + + | Component | Value | Ref Range | Performed | Pathologist | | | | | At | Signature | + + + + + + | VENTRICULAR | 84 | BPM | [facility] | | | RATE EKG | | | | | + + + + + + | ATRIAL RATE | 84 | BPM | [facility] | | + + + + + + | P-R | 180 | ms | [facility] | | | INTERVAL | | | | | + + + + + + | QRS | 100 | ms | [facility] | | | DURATION | | | | | + + + + + + | Q-T | 376 | ms | [facility] | | | INTERVAL | | | | | + + + + + + | Q-T | 444 | ms | [facility] | | | INTERVAL | | | | | | (CORRECTED) | | | | | + + + + + + | P WAVE AXIS | 53 | degrees | [facility] | | + + + + + + | QRS AXIS | -3 | degrees | [facility] | | + + + + + + | T AXIS | 36 | degrees | [facility] | | + + + + + + | INTERPRETAT | Normal sinus | | [facility] | | | ION TEXT | rhythmNormal ECGWhen | | | | | | compared with ECG of | | | | | | 28-SEP-2018 13:15, | | | | | | (Unconfirmed)Sinus | | | | | | rhythm has replaced | | | | | | Atrial | | | | | | fibrillationConfirmed by | | | | | | DIANA SMART MD ([id number]) | | | | | | on 09/29/2018 6:51:41 AM | | | | + + [...] | + +---------+ + + XR Chest AP Portable (09/28/2018 2:09 PM PDT) + + | Specimen | + + | | + + + + + | Narrative | Performed At | + + + | XR CHEST AP PORTABLE 09/28/2018 1:54 PM HISTORY: IRREGULAR HEART | [facility] | | BEAT. COMPARISON: Multiple priors. Findings: There is a left | | | Port-A-Cath with tip in the distal SVC. Heart size is normal. Aorta | | | is normal. Mediastinum is unremarkable. Central pulmonary vasculature | | | is normal. Stable ill-defined haziness is in the right hilar region | | | corresponding to a soft tissue lesion on the CT scan of 09/02/2018. | | | There remains blunting of the right costophrenic angle that could | | | represent scarring versus a chronic small right pleural effusion. The | | | left lung is grossly clear. There is no evidence for pneumothorax. | | | No acute osseous abnormalities are seen. Shortening of the right | | | clavicle is visualized that could be due to prior acromioplasty. | | | IMPRESSION - Stable ill-defined haziness in the right hilar region | | | corresponding to a soft tissue lesion on the CT scan of 09/02/2018. | | | Stable blunting of right costophrenic angle, possibly due to scarring | | | versus chronic small right pleural effusion. Dictated and Signed | | | by: Matheus Kapadia MD Electronically signed: 09/28/2018 2:51 PM | | + + + + + | Procedure Note | + + | Fabián, Rad Results In - 09/28/2018 2:55 PM PDT XR CHEST AP PORTABLE 09/28/2018 1:54 PM | | | | HISTORY: IRREGULAR HEART BEAT. | | | | COMPARISON: Multiple priors. | | | | Findings: | | There is a left Port-A-Cath with tip in the distal SVC. Heart size is normal. | | Aorta is normal. Mediastinum is unremarkable. Central pulmonary vasculature is | | normal. Stable ill-defined haziness is in the right hilar region corresponding | | to a soft tissue lesion on the CT scan of 09/02/2018. There remains blunting of | | the right costophrenic angle that could represent scarring versus a chronic | | small right pleural effusion. The left lung is grossly clear. There is no | | evidence for pneumothorax. No acute osseous abnormalities are seen. Shortening | | of the right clavicle is visualized that could be due to prior acromioplasty. | | | | IMPRESSION - | | Stable ill-defined haziness in the right hilar region corresponding to a soft | | tissue lesion on the CT scan of 09/02/2018. | | | | Stable blunting of right costophrenic angle, possibly due to scarring versus | | chronic small right pleural effusion. | | | | Dictated and Signed by: Matheus Kapadia MD | | Electronically signed: 09/28/2018 2:51 PM | + + + +---------+ + + | Performing | Address | City/State/Zipcode | Phone Number | | Organization | | | | + +---------+ + + | [facility] | | | | + +---------+ + + B Type Natriuretic Peptide (09/28/2018 2:09 PM PDT) + +-------+ + + + | Component | Value | Ref Range | Performed | Pathologist | | | | | At | Signature | + +-------+ + + + | BNP | 82 | <100 pg/mL | [facility] | | | | | [...] + | [facility] | [address] | [place] | [phone] | | [facility] | | [address] | | | - LABORATORY | | | | + + + + + Protime INR (09/28/2018 2:09 PM PDT) + + + + + + | Component | Value | Ref Range | Performed | Pathologist | | | | | At | Signature | + + + + + + | Prothrombin | 13.4 | 11.3 - 13.9 | [facility] | | | Time | | seconds | [facility] | | | | | | MEDICAL | | | | | | CENTER - | | | | | | LABORATORY | | + + + + + + | INR | 1.0Comment: Usual Oral | 0.9 - 1.1 | [facility] | | | | Anticoagulation Range: | | [facility] | | | | 2.0 - 3.0High | | MEDICAL | | | | Level Oral | | CENTER - | [...] + | [facility] | [address] | [place] | [phone] | | [facility] | | [address] | | | - LABORATORY | | | | + + + + + Troponin I (09/28/2018 2:09 PM PDT) + + + + + + | Component | Value | Ref Range | Performed | Pathologist | | | | | At | Signature | + + + + + + | Troponin I | 0.01Comment: | <0.06 ng/mL | [facility] | | | | Comment:Reference | | [facility] | | | | Ranges: 0.00-0.06 = | | MEDICAL | | | | NORMAL >0.06 = | | CENTER - | | | | SUSPICIOUS FOR | | LABORATORY | | | | MYOCARDIAL DAMAGE NOTE: | | | | | | Values greater than | | | | | | 0.78 ng/mL have been | | | | | | shown to be strongly | | | | | | associated with acute | | | | | | myocardial infarction. | | | | | | The [employer] | | | | | | Cardiology (ACC) | | | | | | recommends a decision | | | | | | limit of 0.06 ng/mL for | | | | | | this assay. Results | | | | | | greater than 0.06 can | | | | | | reflect a pre-infarct | | | | | | acute coronary syndrome, | | | | | | but can also reflect | | | | | | myocardial necrosis or | | | | | | injury that is not due | | | | | | to coronary artery | | | | | | disease. Some of these | | | | | | causes are sepsis, | | | | | | hypocolemia, atrial | | | | | | fibrillation, heart | | | | | | failure, pulmonary | | | | | | embolism, myocarditis, | | | | | | myocardial contusion, | | | | | | and renal failure. The | | | | | | diagnosis of myocardial | | | | | | infarction should be | | | | | | based on a combination | | | | | | of the patient's | | | | | | clinical presentation | | | | | | and the clinical | | | | | | laboratory test results | | | | | | (especially serial | | | | | | troponin levels). | | | | + + + + + + + + | Specimen | + + | Blood | + + + + + + + | Performing | Address | City/State/Zipcode | Phone Number | | Organization | | | | + + + + + | [facility] | [address] | [place] | [phone] | | [facility] | | [address] | | | - LABORATORY | | | | + + + + + Comprehensive Metabolic Panel (09/28/2018 2:09 PM PDT) + + + + + + | Component | Value | Ref Range | Performed | Pathologist | | | | | At | Signature | + + + + + + | Na | 140 | 136 - 145 | [facility] | | | | | mmol/L | [facility] | | | | | | MEDICAL | | | | | | CENTER - | | | | | | LABORATORY | | + + + + + + | K | 3.9 | 3.4 - 5.1 | [facility] | [...] + + | CO2 | 25 | 20 - 31 mmol/L | [facility] [...] + + + + | Glucose | 105 | 60 - 106 mg/dL | [facility] | | | | | | [facility] | | | | | | MEDICAL | | | | | | CENTER - | | | | | | LABORATORY | | + + + + + + | BUN | 14 | 9 - 23 mg/dL | [facility] | | | | | | [facility] | | | | | | MEDICAL | | | | | | CENTER - | | | | | | LABORATORY | | + + + + + + | Creatinine | 0.92 | 0.55 - 1.02 | [facility] | | | | | mg/dL | [facility] | | | | | | MEDICAL | | | | | | CENTER - | | | | | | LABORATORY | | + + + + + + | eGFR if not | 60Comment: GLOMERULAR | >=60 | [facility] | | | | FILTRATION | mL/min/1.73m2 | [facility] | | | MARTINIQUAIS | RATE,ESTIMATED | | MEDICAL | | | | mL/min/1.86b0Xphh than | | CENTER - | | [...] | 9.7 | 8.7 - 10.4 | [facility] | | | | | mg/dL | [facility] | | | | | | MEDICAL | | | | | | CENTER - | | | | | | LABORATORY | | + + + + + + | Albumin | 4.1 | 3.2 - 4.8 g/dL | [facility] | | | | | | [facility] | | | | | | MEDICAL | | | | | | CENTER - | | | | | | LABORATORY | | + + + + + + | Bilirubin | 0.5 | 0.3 - 1.2 mg/dL | [facility] | | | Total | | | [facility] | | | | | | MEDICAL | | | | | | CENTER - | | | | | | LABORATORY | | + + + + + + | Total | 6.3 | 5.7 - 8.2 g/dL | [facility] | | | Protein | | | [facility] | | | | | | MEDICAL | | | | | | CENTER - | | | | | | LABORATORY | | + + + + + + | AST | 23 | 0 - 34 U/L | [facility] | | | | | | [facility] | | | | | | MEDICAL | | | | | | CENTER - | | | | | | LABORATORY | | + + + + + + | ALT | 21 | 10 - 49 U/L | [facility] | | | | | | [facility] | | | | | | MEDICAL | | | | | | CENTER - | | | | | | LABORATORY | | + + + + + + | Alkaline | 67 | 46 - 116 U/L | [facility] | | | Phosphatase | | | [facility] | | | | | | MEDICAL | | | | | | CENTER - | | | | | | LABORATORY | | + + + + + + | Globulin | 2.2 | 2.1 - 3.8 g/dL | [facility] | | | | | | [facility] | | | | | | MEDICAL | | | | | | CENTER - | | | | | | LABORATORY | | + + + + + + | Albumin/Mattie | 1.9 | 0.8 - 1.9 | [facility] | | | bulin Ratio | | | [facility] | | | | | | MEDICAL | | | | | | CENTER - | | | | | | LABORATORY | | + + + + + + | BUN/Creatin | 15.2 | | [facility] | | | ine [...] [address] | [place] | [phone] | | [facility] | | [address] | | | - LABORATORY | | | | + + + + + CBC with Differential (09/28/2018 2:09 PM PDT) + + + + + [...] + + + + | Hemoglobin | 11.3 (L) | 11.5 - 16.0 | [facility] | | | | | g/dL | [facility] | | | | | | MEDICAL | | | | | | CENTER - | | | | | | LABORATORY | | + + + + + + | Hematocrit | 36.5 | 34.0 - 47.0 % | [facility] | | | | | | [facility] | | | | | | MEDICAL | | | | | | CENTER - | | | | | | LABORATORY | | + + + + + + | MCV | 94.1 | 83.0 - 101.0 fL | [facility] [...] + + + + | MCHC | 31.0 (L) | 32.0 - 36.0 | [facility] [...] + + + + | RDW-SD | 65.4 (H) | 35.1 - 46.3 fL | [facility] | | | | | | [facility] | | | | | | MEDICAL | | | | | | CENTER - | | | | | | LABORATORY | | + + + + + + | Platelet | 305 | 140 - 440 K/uL | [facility] | | | Count | | | [facility] | | | | | | MEDICAL | | | | | | CENTER - | | | | | | LABORATORY | | + + + + + + | MPV | 9.0 | 6.5 - 12.4 fL | [facility] | | | | | | [facility] | | | | | | MEDICAL | | | | | | CENTER - | | | | | | LABORATORY | | + + + + + + | % | 86.8 (H) | 45.0 - 82.0 % | [facility] | | | Neutrophils | | | [facility] | | | | | | MEDICAL | | | | | | CENTER - | | | | | | LABORATORY | | + + + + + + | % | 6.6 (L) | 20.0 - 45.0 % | [facility] | | | Lymphocytes | | | [facility] | | | | | | MEDICAL | | | | | | CENTER - | | | | | | LABORATORY | | + + + + + + | % Monocytes | 5.4 | 4.0 - 12.0 % | [facility] | | | | | | [facility] | | | | | | MEDICAL | | | | | | CENTER - | | | | | | LABORATORY | | + + + + + + | % | 0.1 | 0.0 - 5.0 % | [facility] [...] [facility] | | | Granulocyte | Preliminary studies have | | [facility] | | | s | indicated the IG% | | MEDICAL | | | | and/or IG# show promise | | CENTER - | | | | as an early indicator | | LABORATORY | | | | for infection. | | | | + + + + + + | Absolute | 8.91 (H) | 1.80 - 8.50 | [facility] | | | Neutrophils | | K/uL | [facility] | | | | | | MEDICAL | | | | | | CENTER - | | | | | | LABORATORY | | + + + + + + | Absolute | 0.68 | 0.60 - 3.20 | [facility] | | | Lymphocytes | | K/uL | [facility] | | | | | | MEDICAL | | | | | | CENTER - | | | | | | LABORATORY | | + + + + + + | Absolute | 0.55 | 0.00 - 1.00 | [facility] | | | Monocytes | | K/uL | [facility] | | | | | | MEDICAL | | | | | | CENTER - | | | | | | LABORATORY | | + + + + + + | Absolute | 0.01 | 0.00 - 0.40 | [facility] | [...] + | [facility] | [address] | [place] | [phone] | | [facility] | | [address] | | | - LABORATORY | | | | + + + + + ECG 12 lead (09/28/2018 1:15 PM PDT) + + + + + + | Component | Value | Ref Range | Performed | Pathologist | | | | | At | Signature | + + + + + + | VENTRICULAR | 121 | BPM | [facility] | | | RATE EKG | | | | | + + + + + + | QRS | 98 | ms | [facility] | | | DURATION | | | | | + + + + + + | Q-T | 280 | ms | [facility] | | | INTERVAL | | | | | + + + + + + | Q-T | 397 | ms | [facility] | | | INTERVAL | | | | | | (CORRECTED) | | | | | + + + + + + | QRS AXIS | 19 | degrees | [facility] | | + + + + + + | T AXIS | 81 | degrees | [facility] | | + + + + + + | INTERPRETAT | Atrial fibrillation with | | [facility] | | | ION TEXT | rapid ventricular | | | | | | responseNonspecific ST | | | | | | abnormalityAbnormal | | | | | | ECGWhen compared with | | | | | | ECG of 22-OCT-2017 | | | | | | 13:49,Atrial | | | | | | fibrillation has | | | | | | replaced Sinus | | | | | | rhythmVent. rate has | | | | | | increased BY 53 | | | | | | BPMNonspecific T wave | | | | | | abnormality now evident | | | | | | in Lateral | | | | | | leadsConfirmed by | | | | | | DIANA SMART MD ([id number]) | | | | | | on 09/30/2018 6:22:20 AM | | | | + + [...] + | Diagnosis | + + | Paroxysmal atrial fibrillation with rapid ventricular response (HCC) - Primary | + + | Heart palpitations Palpitations | + + | Atrial fibrillation with RVR (HCC) Atrial fibrillation | + + documented in this encounter Administered Medications + +--------+ +-------+------+------+ | Medication Order | MAR | Action | Dose | Rate | Site | | | Action | Date | | | | + +--------+ +-------+------+------+ | dilTIAZem (CARDIZEM) injection | Given | 09/29/19 | 10 mg | | | | 10 mg 10 mg, Intravenous, ONCE, | | 19 1:57 | | | | | 09/28/18 at 1340, For 1 dose, | | PM PDT | | | | | Keep in refrigerator., | | | | | | + +--------+ +-------+------+------+ +---+---+ | | | +---+---+ + +-------+ +-------+---+---+ | dilTIAZem (CARDIZEM) tablet 30 | Given | 09/29/19 | 30 mg | | | | mg 30 mg, Oral, ONCE, Michelee | | 19 3:24 | | | | | 09/28/18 at 1515, For 1 dose | | PM PDT | | | | + +-------+ +-------+---+---+ +---+---+ | | | +---+---+ documented in this encounter
--- OUTSIDE RECORDS SUMMARY | ~2019-05-05 | XMS | Encounter Summary ---
Demographics + + + | Address | [address] | | | [place] [address] | + + + | Home Phone [...] [place] | | | | | [address] | | + + + + + Care Team Providers + +------+ + | Care Journal Entry Audit Clerk Name | Role | Phone | + +------+ + | Davis Ivan MD | PCP | | + +------+ + Encounter Details +--------+ + + + + | Date | Type | Department | Care Team | Description | +--------+ + + + + | 09/08/ | Orders Only | [facility] | Tamiko Adair | Cough (Primary Dx) | | 2014 | | [facility] | MD Kathleen [address] | | | | | ONCOLOGY [address] | [place] | | | | | [place], | [address] | | | | | [place] [address] | | | | | | [phone] | | | +--------+ + + + [...] | | | | | [facility] | | | | | | [place] [address] | | | | | | [phone] | | | | | | | | +--------+ + + + + | 06/08/ | Office | Physical Medicine | Rocky Santos, | | | 2019 | Visit | and Rehabilitation | [address] | | | | | | [place] | | | | | | [address] | | | | | | | | +--------+ + + + + | 06/16/ | Appointment | Pulmonology | Eveline Jaffe | | | 2019 | | | MD [address] | | | | | | [address] [place] | | | | | | [place] [address] | | | | | | [phone] | | | | | | | | +--------+ + + + + | 06/16/ | Office | Pulmonology | Eveline Jaffe | | | 2019 | Visit | | MD [address] | | | | | | [address] [place] | | | | | | [place] [address] | | | | | | [phone] | | | | | | | | +--------+ + + + + | 08/24/ | Office | Cardiology | Anisha Lopez DO | | | 2019 | Visit | | [address] | | | | | | [place] | | | | | | [address] | | | | | | | | +--------+ + + + + documented as of this encounter Visit Diagnoses + + | Diagnosis | + + | Cough - Primary | + + documented in this encounter"
--- OUTSIDE RECORDS SUMMARY | ~2019-05-05 | XMS | Encounter Summary ---
Demographics + + + | Address | [address] | | | [place] [address] | + + + | Home Phone | | + + + | Preferred Language | Unknown | + + + | Marital Status | | + + + | Pentecostalism Affiliation | Unknown | + + + | Race | Unknown | + + + | Ethnic Group | Unknown | + + + Author + + + | Author | [facility] | | | and [place] | + + + | Organization | [facility] | [...] [place] | | | | | [address] | | + + + + + Care Team Providers + +------+ + | Care Template Storage Clerk Name | Role | Phone | [...] | | Required | | nodule | Ayana B, | | | | | | Procedures | MD [address] | | | | | | [address] | [address] | | | | | | GUIDE NEEDLE | [place], | | | | | | [place] | [place] [address] | | | | | | DRAIN/INJECT | | | | | | | LARGE | | | | | | | JOINT/BURSA | | | +--------+ + + + + + Reason for Visit +--------+ + | Reason | Comments | +--------+ + | Other | decision regarding biopsy | +--------+ + Encounter Details +--------+ + + + + | Date | Type | Department | Care Team | Description | +--------+ + + + + | 06/23/ | Telephone | [facility] | [place], | Other (decision | | 2013 | | PULMONARY [address] | Ayana Looney MD | regarding biopsy) | | | | [place], | | | | | | [place] [address] | | | | | | [phone] | | | +--------+ + + + [...] [address] | | | | | | [place] [address] | | | | | | [phone] | | | | | | | | +--------+ + + + + | 06/08/ | Office | Physical Medicine | Rocky Santos, | | | 2019 | Visit | and Rehabilitation | MD [address] | | | | | | [place] | | | | | | [address] | | | | | | | | +--------+ + + + + | 06/16/ | Appointment | Pulmonology | Eveline Jaffe | | 2019 | | | MD Nichole Carter | | | | | | [address] | | | | | | [place] [address] | | | | | | [phone] | | | | | | | | +--------+ + + + + | 06/16/ | Office | Pulmonology | Eveline Jaffe | | | 2019 | Visit | | MD Raul [address] | | | | | | [address] [place] | | | | | | [place] [address] | | | | | | [phone] | | | | | | | | +--------+ + + + + | 08/24/ | Office | Cardiology | Anisha Lopez DO | | | 2019 | Visit | | [address] | | | | | | [place] | | | | | | [address] | | | | | | | [...]
--- OUTSIDE RECORDS SUMMARY | ~2019-05-05 | XMS | Encounter Summary ---
Demographics + + + | Address | [address] | | | [place] [address] | + + + | Home Phone | | + + + | Preferred Language | Unknown | + + + | Marital Status | | + + + | Scientologist Affiliation | Unknown | + + + | Race | Unknown | + + + | Ethnic Group | Unknown | + + + Author + + + | Author | [facility] | | | and [place] | + + + | Organization | [facility] | | | [...] [place] | | | | | [address] | | + + + + + Care Team Providers + +------+ + | Care Project Facilitator Name | Role | Phone | + +------+ + | Davis Ivan MD | PCP | | + +------+ + Reason for Visit +--------+ + | Reason | Comments | +--------+ + | Other | issues with shortness of breath and "panic attacks" | +--------+ + Encounter Details +--------+ + + + + | Date | Type | Department | Care Team | Description | +--------+ + + + + | 08/11/ | Telephone | [facility] [place] | Offenstein, | Other (issues with | | 2014 | | CARDIOLOGY [address] | Ayana Looney MD | shortness of breath | | | | [place], | | and "panic attacks") | | | | [place] [address] | | | | | | [phone] | | | +--------+ + + + [...] | 2018 | Visit | | [address]I [address] | | | | | | [facility] | | | | | | [place] [address] | | | | | | [phone] | | | | | | | | +--------+ + + + + | 06/08/ | Office | Physical Medicine | Rocky Santos, | | | 2019 | Visit | and Rehabilitation | MD Nichole [address] | | | | | | [place] | | | | | | [address] | | | | | | | | +--------+ + + + + | 06/16/ | Appointment | Pulmonology | Eveline Jaffe | | 2019 | | | MD Nichole [address] | | | | | | [address] [place] | | | | | | [place] [address] | | | | | | [phone] | | | | | | | | +--------+ + + + + | 06/16/ | Office | Pulmonology | Eveline Jaffe | | | 2019 | Visit | | MD Nichole [address] | | | | | | [address] [place] | | | | | | [place] [address] | | | | | | [phone] | | | | | | | | +--------+ + + + + | 08/24/ | Office | Cardiology | Anisha Lopez DO | | | 2020 | Visit | | [address] | | | | | | [place] | | | | | | [address] | | | | | | | | +--------+ + + + + documented as of this encounter Visit Diagnoses Not on filedocumented in this encounter
--- OUTSIDE RECORDS SUMMARY | ~2019-05-05 | XMS | Encounter Summary ---
Demographics + + + | Address | [address] | | | [place] [address] | + + + | Home Phone [...] [place] | | | | | [address] | | + + + + + Care Team Providers + +------+ + | Care Combination Saw Operator Name | Role | Phone [...] Arthroplasty | | | | [address] | [place], [place] | | | | | [place], [place] | [address] | | | | | [address] | | | | | | [phone] | | | +--------+---------+ + + + [...] | | | | | | [facility] | | | | | | [place] [address] | | | | | | [phone] | | | | | | | | +--------+ + + + + | 06/08/ | Office | Physical Medicine | Rocky Santos, | | | 2019 | Visit | and Rehabilitation | [address] | | | | | | [place] | | | | | | [address] | | | | | | | | +--------+ + + + + | 06/16/ | Appointment | Pulmonology | Eveline Jaffe | | | 2019 | | | MD [address] | | | | | | [address] [place] | | | | | | [place] [address] | | | | | | [phone] | | | | | | | | +--------+ + + + + | 06/16/ | Office | Pulmonology | Eveline Jaffe | | | 2019 | Visit | | MD [address] | | | | | | [address] [place] | | | | | | [place] [address] | | | | | | [phone] | | | | | | | | +--------+ + + + + | 08/24/ | Office | Cardiology | Anisha Lopez DO | | | 2019 | Visit | | [address] | | | | | | [place] | | | | | | [address] | | | | | | | [...]
--- OUTSIDE RECORDS SUMMARY | ~2019-05-05 | XMS | Encounter Summary ---
Demographics + + + | Address | [address] | | | [place] [address] | + + + | Home Phone [...] [place] | | | | | [address] | | + + + + + Care Team Providers + +------+ + | Care Corrugator Name | Role | Phone | + +------+ + | Caitlin Chino MD | PCP | | + +------+ + Encounter Details +--------+ + + + + | Date | Type | Department | Care Team | Description | +--------+ + + + + | 02/22/ | Orders Only | [facility] | Denver Doss, | Rheumatoid arthritis | | 2019 | | [address] | Route Supervisor | ([facility]) | | | | [place] | | | | | | [address] | | | | | | [phone] | | | +--------+ + + + [...] | | | | | [place] [address] | | | | | | [phone] | | | | | | | | +--------+ + + + + | 06/08/ | Office | Physical Medicine | Rocky Santos, | | | 2019 | Visit | and Rehabilitation | MD [address] | | | | | | [place] | | | | | | [address] | | | | | | | | +--------+ + + + + | 06/16/ | Appointment | Pulmonology | Eveline Jaffe | | 2019 | | | MD Nichole Carter | | | | | | [address] [place] | | | | | | [place] [address] | | | | | | [phone] | | | | | | | | +--------+ + + + + | 06/16/ | Office | Pulmonology | Eveline Jaffe | | | 2019 | Visit | | MD Raul [address] | | | | | | [address] [place] | | | | | | [place] [address] | | | | | | [phone] | | | | | | | | +--------+ + + + + | 08/24/ | Office | Cardiology | Anisha Lopez DO | | | 2019 | Visit | | [address] | | | | | | [place] | | | | | | [address] | | | | | | | | +--------+ + + + + documented as of this encounter Procedures + +--------+ + + + | Procedure Name | Priori | Date/Time | Associated Diagnosis | Comments | | | ty | | | | + +--------+ + + + | SEDIMENTATION RATE | Routin | 02/22/2019 | Rheumatoid | Results for this | | | e | 1:58 PM | arthritis (HCC) | procedure are in the | | | | PDT | | results section. | + +--------+ + + + | CBC WITH | Routin | 02/22/2019 | Rheumatoid | Results for this | | DIFFERENTIAL | e | 1:58 PM | arthritis (HCC) | procedure are in the | | | | PDT | | results section. | + +--------+ + + + | C-REACTIVE PROTEIN | Routin | 02/22/2019 | Rheumatoid | Results for this | | | e | 1:58 PM | arthritis (HCC) | procedure are in the | | | | PDT | | results section. | + +--------+ + + + | COMPREHENSIVE | Routin | 02/22/2019 | Rheumatoid | Results for this | | METABOLIC PANEL | e | 1:58 PM | arthritis (HCC) | procedure are in the | | | | PDT | | results section. | + +--------+ + + + documented in this encounter Results CBC with Differential (02/22/2019 1:58 PM PDT) + + + + + + | Component | Value | Ref Range | Performed | Pathologist | | | | | At | Signature | + + + + + + | WBC | 10.62 | 3.80 - 11.00 | REFERENCE | | | | | K/uL | LAB | | | | | | [facility] | | | | | | LABORAT[facility] | | + + + + + + | RBC | 3.98 | 3.70 - 5.10 | REFERENCE | | | | | M/uL | LAB | | | | | | [facility] | | | | | | LABORAT[facility] | | + + + + + + | Hemoglobin | 12.7 | 11.3 - 15.5 | REFERENCE | | | | | g/dL | LAB | | | | | | [facility] | | | | | | LABORAT[facility] | | + + + + + + | Hematocrit | 38.3 | 34.0 - 46.0 % | REFERENCE | | | | | | LAB | | | | | | [facility] | | | | | | [facility] | | + + + + + + | MCV | 96.2 | 80.0 - 100.0 fl | REFERENCE | | | | | | LAB | | | | | | [facility] | | | | | | LABORAT[facility] | | + + + + + + | MCH | 31.8 | 27.0 - 34.0 pg | REFERENCE | | | | | | LAB | | | | | | [facility] | | | | | | LABORAT[facility] | | + + + + + + | MCHC | 33.1 | 32.0 - 35.5 | REFERENCE | | | | | g/dL | LAB | | | | | | [facility] | | | | | | LABOR[facility] | | + + + + + + | RDW-SD | 63.0 (H) | 37 - 53 fl | REFERENCE | | | | | | LAB | | | | | | [facility] | | | | | | [facility]OR[facility] | | + + + + + + | Platelet | 366 | 150 - 400 K/uL | REFERENCE | | | Count | | | LAB | | | | | | [facility] | | | | | | [facility] | | + + + + + + | MPV | 7.8 | fl | REFERENCE | | | [...] + + + + | % | 75.17 | % | REFERENCE | | | Neutrophils | | | LAB | | | | | | [facility] | | | | | | LABORAT[facility] | | + + + + + + | % | 13.36 | % | REFERENCE | | | Lymphocytes | | | LAB | | | | | | [facility] | | | | | | LAB[facility] | | + + + + + + | Monocyte % | 9.07 | % | REFERENCE | | | | | | LAB | | | | | | [facility] | | | | | | [facility] | | + + + + + + | Eosinophils | 1.95 | % | REFERENCE | | | % | | | LAB | | | | | | [facility] | | | | | | LAB[facility] | | + + + + + + | Basophils % | 0.45 | % | REFERENCE | | | | | | LAB | | | | | | [facility] | | | | | | [facility] | | + + + + + + | Neutrophils | 7.98 (H) | 1.90 - 7.40 | REFERENCE | | | , Absolute | | K/uL | LAB | | | | | | [facility] | | | | | | [facility] | | + + + + + + | Absolute | 1.42 | 1.00 - 3.90 | REFERENCE | | | Lymphocytes | | K/uL | LAB | | | | | | [facility] | | | | | | LAB[facility] | | + + + + + + | Absolute | 0.96 (H) | 0.00 - 0.80 | REFERENCE | | | Monocytes | | K/uL | LAB | | | | | | [facility] | | | | | | LABOR[facility] | | + + + + + + | Eosinophils | 0.21 | 0.00 - 0.50 | REFERENCE | | | , Absolute | | K/uL | LAB | | | | | | [facility] | | | | | | LABOR[facility] | | + + + + + + | Basophils, | 0.05 | 0.00 - 0.10 | REFERENCE | | | Absolute | | K/uL | LAB | | | | | | [facility] | | | | | | [facility] | | + + + + + + | RBC | 1+Comment: ANISONORMAL | | REFERENCE | | | Morphology | PLT MORPHTesting | | LAB | | | | performed at [facility];[address] | | [facility] | | | | [address] | | LABORATORY | | | | [address];[place], [place] [address] | | | | | | | | | | + + + + + + + + | Specimen | + + | Blood | + + + + + + + | Performing | Address | City/State/Zipcode | Phone Number | | Organization | | | | + + + + + | REFERENCE LAB | [address] [place] [address] | [place] [address] | [phone] | | [facility] | Blvd[address] | | | | LABORATORY | | | | + + + + + | REFERENCE LAB | [address] [place] [address] | [place] [address] | | | [facility] | Blvd[address] | | | | LABORATORY | | | | + + + + + Comprehensive Metabolic Panel (02/22/2019 1:58 PM PDT) + + + + + + | Component | Value | Ref Range | Performed | Pathologist | | | | | At | Signature | + + + + + + | Na | 139 | 135 - 145 | REFERENCE | | | | | mmol/L | LAB | | | | | | [facility] | | | | | | LABORAT[facility] | | + + + + + + | K | 3.2 (L) | 3.5 - 4.9 | REFERENCE | | | | | mmol/L | LAB | | | | | | [facility] | | | | | | LABORATORY | | + + + + + + | Cl | 102 | 99 - 109 mmol/L | REFERENCE | | | | | | LAB | | | | | | [facility] | | | | | | LABORATORY | | + + + + + + | CO2 | 30 | 23 - 32 mmol/L | REFERENCE | | | | | | LAB | | | | | | [facility] | | | | | | LABORATORY | | + + + + + + | Anion Gap | 10 | 5 - 20 mmol/L | REFERENCE | | | | | | LAB | | | | | | [facility] | | | | | | LABORATORY | | + + + + + + | Glucose | 110 (H) | 65 - 99 mg/dL | REFERENCE | | | | | | LAB | | | | | | [facility] | | | | | | LABORATORY | | + + + + + + | BUN | 15 | 8 - 25 mg/dL | REFERENCE | | | | | | LAB | | | | | | [facility] | | | | | | LABORATORY | | + + + + + + | Creatinine | 1.2 (H) | 0.50 - 1.00 | REFERENCE | | | | | mg/dL | LAB | | | | | | [facility] | | | | | | LABORATORY | | + + + + + + | BUN/Creatin | 13 | | REFERENCE | | | ine Ratio | | | LAB | | | | | | [facility] | | | | | | LABORATORY | | + + + + + + | Calcium | 9.3 | 8.5 - 10.5 | REFERENCE | | | | | mg/dL | LAB | | | | | | [facility] | | | | | | LABORATORY | | + + + + + + | Protein, | 6.6 | 6.3 - 8.2 g/dL | REFERENCE | | | Total | | | LAB | | | | | | [facility] | | | | | | LABORATORY | | + + + + + + | Albumin | 3.4 | 3.3 - 4.8 g/dL | REFERENCE | | | | | | LAB | | | | | | [facility] | | | | | | LABORATORY | | + + + + + + | Globulin | 3.2 | 1.3 - 4.9 g/dL | REFERENCE [...] + + + + | BILIRUBIN, | 0.5 | 0.1 - 1.5 mg/dL | REFERENCE | | | TOTAL | | | LAB | | | | | | [facility] | | | | | | LABORATORY | | + + + + + + | ALK PHOS | 65 | 35 - 115 U/L | REFERENCE | | | | | | LAB | | | | | | [facility] | | | | | | LABORATORY | | + + + + + + | AST | 21 | 10 - 45 U/L | REFERENCE | | | | | | LAB | | | | | | [facility] | | | | | | LABORATORY | | + + + + + + | ALT | 25 | 10 - 65 U/L | REFERENCE | | | | | | LAB | | | | | | [facility] | | | | | | LABORATORY | | + + + + + + | Estimated | 44 (L)Comment: GFR <60: | >60 | REFERENCE [...] | | | | | performed at [facility];[address] | | | | | | [facility] | | | | | | Blvd;[place] [address] | | | | | | | | | | + + + + + + + + | Specimen | + + | Blood | + + + + + + + | Performing | Address | City/State/Zipcode | Phone Number | | Organization | | | | + + + + + | REFERENCE LAB | [address] [address] | [place] [address] | [phone] | | [facility] | Blvd. | | | | LABORATORY | | | | + + + + + | REFERENCE LAB | [address] | [place] [address] | | | [facility] | Blvd. | | | | LABORATORY | | | | + + + + + Sedimentation Rate (02/22/2019 1:58 PM PDT) + + + + + + | Component | Value | Ref Range | Performed | Pathologist | | | | | At | Signature | + + + + + + | ESR | 65 (H)Comment: Testing | 0 - 30 mm/Hr | REFERENCE | | | | performed at [facility];[address] | | LAB | | | | [place] | | [facility] | | | | Blvd;[place] [address] | | LABORATORY | | + + + + + + + + | Specimen | + + | Blood | + + + + + + + | Performing | Address | City/State/Zipcode | Phone Number | | Organization | | | | + + + + + | REFERENCE LAB | [address] | [place] [address] | [phone] | | [facility] | Blvd. | | | | LABORATORY | | | | + + + + + | REFERENCE LAB | [address] | [place] [address] | | | [facility] | Blvd[address] | | | | LABORATORY | | | | + + + + + C-Reactive Protein (02/22/2019 1:58 PM PDT) + + + + + + | Component | Value | Ref Range | Performed | Pathologist | | | | | At | Signature | + + + + + + | CRP | 2.7 (H)Comment: Testing | <0.5 mg/dL | REFERENCE | | | | performed at [facility];[address] | | LAB | | | | [place] | | [facility] | | | | Blvd;[place] [address] | | LABORATORY | | + + + + + + + + | Specimen | + + | Blood | + + + + + + + | Performing | Address | City/State/Zipcode | Phone Number | | Organization | | | | + + + + + | REFERENCE LAB | [address] [place] [address] | [place] [address] | [phone] | | [facility] | Blvd[address] | | | | LABORATORY | | | | + + + + + | REFERENCE LAB | [address] [place] [address] | [place] [address] | | | [facility] | Blvd. | | | | LABORATORY | | | | + + + + + documented in this encounter Visit Diagnoses + + | Diagnosis | + + | Rheumatoid arthritis (HCC) | + + documented in this encounter"
--- OUTSIDE RECORDS SUMMARY | ~2019-05-05 | XMS | Encounter Summary ---
Demographics + + + | Address | [address] | | | [place] [address] | + + + | Home Phone [...] [place] | | | | | [address] | | + + + + + Care Team Providers + +------+ + | Care Curriculum Consultant Name | Role | Phone | + +------+ + | Davis Ivan MD | PCP | | + +------+ + Reason for Visit +--------+ + | Reason | Comments | +--------+ + | Other | | +--------+ + Encounter Details +--------+ + + + + | Date | Type | Department | Care Team | Description | +--------+ + + + + | 04/27/ | Telephone | [facility] [place] | Narcisa Mckay, | Other | | 2012 | | PULMONARY [address] | RN | | | | | [place], | | | | | | [place] [address] | | | | | | [phone] | | | +--------+ + + + [...] | 2018 | Visit | | MINI [address] | | | | | | [facility] | | | | | | [place] [address] | | | | | | [phone] | | | | | | | | +--------+ + + + + | 06/08/ | Office | Physical Medicine | Rocky Santos, | | | 2019 | Visit | and Rehabilitation | MD Nichole Hind[address] | | | | | | [place] | | | | | | [address] | | | | | | | | +--------+ + + + + | 06/16/ | Appointment | Pulmonology | Eveline Jaffe | | | 2019 | | | MD Nichole Carter | | | | | | [address] [place] | | | | | | [place] [address] | | | | | | [phone] | | | | | | | | +--------+ + + + + | 06/16/ | Office | Pulmonology | Eveline Jaffe | | | 2019 | Visit | | MD Nichole Carter | | | | | | [address] [place] | | | | | | [place] [address] | | | | | | [phone] | | | | | | | | +--------+ + + + + | 08/24/ | Office | Cardiology | Anisha Lopez DO | | | 2019 | Visit | | [address] | | | | | | [place] | | | | | | [id number] | | | | | | | | +--------+ + + + + documented as of this encounter Visit Diagnoses Not on filedocumented in this encounter"
--- OUTSIDE RECORDS SUMMARY | ~2019-05-05 | XMS | Encounter Summary ---
Demographics + + + | Address | [address] | | | [place] [address] | + + + | Home Phone [...] [place] | | | | | [address] | | + + + + + Care Team Providers + +------+ + | Care Typewriter Ribbon Winder Name | Role | Phone | + [...] + + | 08/28/ | Hospital | [facility] | Adelita Lu MD | Recurrent squamous | | 2015 | Encounter | [facility] | [address] | cell carcinoma of | | | | ONCOLOGY CLINIC [address] | [place], [place] | lung, right (HCC) | | | | [address] [place] | [address] | (Primary Dx) | | | | [place] [address] | [phone] | | | | | [phone] | | | +--------+ + + + [...] 08/28/2014 9:44 AM PDT Hem-Onc Progress Note [facility] Patient name:Thea Carmona : 1945 Age: 69 y.o. CSN: [id number] Date of Service: 08/28/2014 Identifying Statement: Thea Carmona is a 69 y.o. female from [facility] with clinical stage II, non-small [...] lewis 2.CT-guided biopsy by interventional radiology at [facility] of the right lung [...] Dr. Mace , thoracic surgeon [facility] [...] 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 RESPIRATORY THERAPY SUPPLIES [facility] ResMed S9 auto CPAP 5-9 cm H2O. Heater and Humidifier . All necessary supplies. AHI 11.6. Diagnosis Code(s)327.23, also has co morbid hypertension , history of stroke. Length of Need 99 months. Please send order to [facility]. RESPIRATORY THERAPY SUPPLIES [facility] Respironics autotitrating CPAP at 5-9 cm H2O [...] this chart may have been created with [employer] voice recognition software. Occasi onal wrong-word or [...] | | | | | [place] [address] | | | | | | [phone] | | | | | | | | +--------+ + + + + | 06/08/ | Office | Physical Medicine | Rocky Santos, | | | 2019 | Visit | and Rehabilitation | MD [address]ole [address] | | | | | | [place] | | | | | | [address] | | | | | | | | +--------+ + + + + | 06/16/ | Appointment | Pulmonology | Eveline Jaffe | | 2019 | | | MD [address] | | | | | | [address] | | | | | | [place] [address] | | | | | | [phone] | | | | | | | | +--------+ + + + + | 06/16/ | Office | Pulmonology | Eveline Jaffe | | | 2019 | Visit | | MD Raul [address] | | | | | | [address] | | | | | | [place] [address] | | | | | | [phone] | | | | | | | | +--------+ + + + + | 08/24/ | Office | Cardiology | Anisha Lopez DO | | | 2019 | Visit | | [address] | | | | | | [place] | | | | | | [address] | | | | | | | | +--------+ + + + + documented as of this encounter Visit Diagnoses + + | Diagnosis | + + | Recurrent squamous cell carcinoma of lung, right (HCC) - Primary | + + documented in this encounter
--- OUTSIDE RECORDS SUMMARY | ~2019-05-05 | XMS | Encounter Summary ---
Demographics + + + | Address | [address] | | | [place] [address] | + + + | Home Phone [...] + | Author | [facility] | | | and [place] | + + + | Organization | [facility] | | | [...] [place] | | | | | [address] | | + + + + + Care Team Providers + +------+ + | Care High Voltage Electrician Name | Role | Phone | + [...] + + | 03/08/ | [facility] [place] | [place], | COPD (chronic | | 2014 | Visit | PULMONARY [address] | Ayana Looney MD | obstructive | | | | [place], | | pulmonary disease) | | | | [place] [address] | | (Primary Dx); | | | | [phone] | | Gastroesophageal | | | | [...] Pneumonia 2008 hospitalized 5 days Rheumatoid arthritis(714.0) ([facility]) on prednisone and methotrexate, Dr. 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 Past Surgical History Past Surgical History Procedure Laterality Date Hysterectomy Cholecystectomy Cervical spine surgery 2012 Bladder suspension Shoulder surgery Thumb surgery Shoulder surgery right shoulder Tongue surgery benign per pt Lung biopsy 07/21/13 right lower lobe Lobectomy 09/16/13 right lower lobe Back surgery 03/2014 Bronchoscopy 07/11/2014 EBUS with right hilar LN biopsy, [facility] Dr. 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 3. Recurrent squamous cell carcinoma of lung, [...] made to ensure accuracy; however, inadvertent computerized farm machine tender errors may be pre sent. documented in this encounter Plan of Treatment +--------+ + + + + | Date | Type | Specialty | Care Team | Description | +--------+ + + + + | 05/30/ | Office | Rheumatology | Santosh Sumner, | | | 2019 | Visit | | [address] | | | | | | [facility] | | | | | | [place] [address] | | | | | | [phone] | | | | | | | | +--------+ + + + + | 06/08/ | Office | Physical Medicine | Rocky Santos, | | | 2019 | Visit | and Rehabilitation | MD Nichole [address] | | | | | | [place] | | | | | | [address] | | | | | | | | +--------+ + + + + | 06/16/ | Appointment | Pulmonology | Eveline Jaffe | | | 2019 | | | MD Nichole [address] | | | | | | [address] [place] | | | | | | [place] [address] | | | | | | [phone] | | | | | | | | +--------+ + + + + | 06/16/ | Office | Pulmonology | Eveline Jaffe | | | 2019 | Visit | | MD [address]ole [address] | | | | | | [address] [place] | | | | | | [place] [address] | | | | | | [phone] | | | | | | | | +--------+ + + + + | 08/24/ | Office | Cardiology | Anisha Lopez | | | 2019 | Visit | | [address] | | | | | | [place] | | | | | | [address] | | | | | | | [...]
--- OUTSIDE RECORDS SUMMARY | ~2019-05-05 | XMS | Encounter Summary ---
Demographics + + + | Address | [address] | | | [place] [address] | + + + | Home Phone [...] [place] | | | | | [address] | | + + + + + Care Team Providers + +------+ + | Care Tier Lift Operator Name | Role | Phone | [...] | +--------+ + + + + | 09/20/ | Telephone | [facility] | Adelita Lu MD | Other | | 2014 | | [facility] MED[facility] | [address] [facility] | | | | | ONCOLOGY CLINIC [address] | [place] | | | | | [facility] | [address] | | | | | [place] [address] | [phone] | | | | | [phone] | | | +--------+ + + + [...] | | | | | [place] [address] | | | | | | [phone] | | | | | | | | +--------+ + + + + | 06/08/ | Office | Physical Medicine | Rocky Santos, | | | 2019 | Visit | and Rehabilitation | [address] | | | | | | [place] | | | | | | [id number] | | | | | | | | +--------+ + + + + | 06/16/ | Appointment | Pulmonology | Eveline Jaffe | | | 2019 | | | MD [address] | | | | | | [address] [place] | | | | | | [place] [address] | | | | | | [phone] | | | | | | | | +--------+ + + + + | 06/16/ | Office | Pulmonology | Eveline Jaffe | | | 2019 | Visit | | MD [address] | | | | | | [address] [place] | | | | | | [place], [place] [address] | | | | | | [phone] | | | | | | | | +--------+ + + + + | 08/24/ | Office | Cardiology | Anisha Lopez DO | | | 2019 | Visit | | [address] | | | | | | [place] | | | | | | [address] | | | | | | | | +--------+ + + + + documented as of this encounter Visit Diagnoses Not on filedocumented in this encounter"
--- OUTSIDE RECORDS SUMMARY | ~2019-05-05 | XMS | Encounter Summary ---
Demographics + + + | Address | [address] | | | [place] [address] | + + + | Home Phone | | + + + | Preferred Language | Unknown | + + + | Marital Status | | + + + | Samaritan Affiliation | Unknown | + + + | Race | Unknown | + + + | Ethnic Group | Unknown | + + + Author + + + | Author | [facility] | | | and [place] | + + + | Organization | [facility] | | | [...] [place] | | | | | [address] | | + + + + + Care Team Providers + +------+ + | Care Master Brewer Name | Role | Phone | + [...] + + + + | 07/28/ | Anesthesia | [facility] | Santosh Barahona | | | 2015 | Event | [facility] | [place], [address] | | | | | [address] | [place], [place] | | | | | [place], [place] | [address] | | | | | [address] | | | | | | [phone] | | | +--------+ + + + + Anesthesia Record + + + + + | Procedure Name | Responsible | Anesthesia Start | Anesthesia Stop Time | | | Anesthesiologist | Time | | + + + + + | Port Placement (N/A | Santosh Barahona, | 07/28/14 1558 | 07/28/14 1704 | | Chest) | | | | + + + + + +----+---+ + + | Da | T | Event | Comment | | te | i | | | | | m | | | | | e | | | +----+---+ + + | 02 | 1 | | | | /2 | 5 | | | | 7/ | 5 | | | | 20 | 0 | | | | 15 | | | | +----+---+ + + | | 1 | An Checkout | Pre-use anesthesia machine/equipment checkout. | | | 5 | | | | | 5 | | | | | 0 | | | +----+---+ + + | | 1 | An Start | Versed 2mg, Reassessment prior to anesthesia induction/procedure. | | | 5 | | | | | 5 | | | | | 8 | | | +----+---+ + + | | 1 | an yaneth now | In Room | | | 6 | | | | | 0 | | | | | 1 | | | +----+---+ + + | | 1 | Antibiotic | | | | 6 | Given | | | | 0 | | | | | 3 | | | +----+---+ + + | | 1 | Preoxygenat | | | | 6 | ed | | | | 0 | | | | | 5 | | | +----+---+ + + | | 1 | An | | | | 6 | Induction | | | | 0 | | | | | 7 | | | +----+---+ + + | | 1 | AN Bite | Easy mask airway, LMA #4 placed easily | | | 6 | Block | | | | 0 | | | | | 7 | | | +----+---+ + + | | 1 | An | | | | 6 | Intubation | | | | 0 | | | | | 8 | | | +----+---+ + + | | 1 | [place] | | | | 6 | 43-degrees | | | | 3 | | | | | 1 | | | +----+---+ + + | | 1 | [place] off | | | | 6 | | | | | 5 | | | | | 5 | | | +----+---+ + + | | 1 | Extubated | | | | 6 | Awake | | | | 5 | | | | | 5 | | | +----+---+ + + | | 1 | An Stop | Patient handed off to recovery nurse. | | | 0 | | | | | 4 | | | +----+---+ + + +------+ | Meds | +------+ + +---------+ | Name | Total | + +---------+ | midazolam | 2 mg | + +---------+ | fentaNYL | 100 mcg | + +---------+ | lidocaine 2% (PF) | 60 mg | + +---------+ | propofol | 150 mg | + +---------+ | dexamethasone | 10 mg | + +---------+ | ondansetron | 4 mg | + +---------+ | ceFAZolin | 1 g | + +---------+ | LR (Infusion) | 750 mL | + +---------+ + + | Name | + + | N2O Flow Rate (L/Min) | + + | O2 Flow Rate (L/Min) | + + | Insp O2 | + + | Exp SEV | + + | Exp BIANCA | + + | Air Flow Rate (L/Min) | + + + + | No blood administrations on file. | + + +--------+ + + + | Type | Details | Placement | Removal | +--------+ + + + | [READ | 07/28/14; 1300; short term use; | 07/28/14 1300 by | 07/28/14 182 by | | ONLY] | 07/28/14; 1823 | Paige Carter, | Dalila Escamilla RN | | | | RN | | | Periph | | | | | eral | | | | | IV - | | | | | Single | | | | | Lumen | | | | | | | | | +--------+ + + + | Airway | Placement Date: 07/28/14; | 07/28/14 160 by | 07/28/14 165 by | | | Placement Time: 1607; Mask | Santosh Barahona, | Santosh Barahona, | | | Ventilation: EZ; Attempts: 1; | MD | MD | | | Airway Type: laryngeal mask; | | | | | Size: 4; Tube Reference Point: | | | | | teeth, secure and patent; Trauma: | | | | | none; Placement Check: verified | | | | | by capnography; Placed By: | | | | | Anesthesiologist; Removal Date: | | | | | 07/28/14; Removal Time: 1655 | | | +--------+ + + + [...] | 2018 | Visit | | [address] | | | | | | [facility] | | | | | | [place] [address] | | | | | | [phone] | | | | | | | | +--------+ + + + + | 06/08/ | Office | Physical Medicine | Rocky Santos, | | | 2019 | Visit | and Rehabilitation | MD [address] | | | | | | [place] | | | | | | [address] | | | | | | | | +--------+ + + + + | 06/16/ | Appointment | Pulmonology | Eveline Jaffe | | | 2019 | | | MD [address] | | | | | | [address] [place] | | | | | | [place] [address] | | | | | | [phone] | | | | | | | | +--------+ + + + + | 06/16/ | Office | Pulmonology | Eveline Jaffe | | | 2019 | Visit | | MD [address] | | | | | | [address] [place] | | | | | | [place] [address] | | | | | | [phone] | | | | | | | | +--------+ + + + + | 08/24/ | Office | Cardiology | Anisha Lopez DO | | | 2019 | Visit | | [address] | | | | | | [place] | | | | | | [address] | | | | | | | | +--------+ + + + + documented as of this encounter Visit Diagnoses Not on filedocumented in this encounter Administered Medications + +--------+ +------+------+------+ | Medication Order | MAR | Action | Dose | Rate | Site | | | Action | Date | | | | + +--------+ +------+------+------+ | ceFAZolin (ANCEF, KEFZOL) | Given | 07/28/19 | 1 g | | | | injection Intravenous, PRN, | | 15 4:03 | | | | | Starting Thu07/28/14 at 1603, | | PM PST | | | | | Anesthesia Intra-op | | | | | | + +--------+ +------+------+------+ +---+---+ | | | +---+---+ + +-------+ +-------+---+---+ | dexamethasone (DECADRON) 10 | Given | 07/28/19 | 10 mg | | | | mg/mL injection Intravenous, | | 15 4:07 | | | | | PRN, Starting Thu07/28/14 at | | PM PST | | | | | 1607, Anesthesia Intra-op | | | | | | + +-------+ +-------+---+---+ +---+---+ | | | +---+---+ + +-------+ +---------+---+---+ | fentaNYL injection PRN, Pain, | Given | 07/28/19 | 100 mcg | | | | Starting Thu07/28/14 at 1602, | | 15 4:02 | | | | | Anesthesia Intra-op | | PM PST | | | | + +-------+ +---------+---+---+ +---+---+ | | | +---+---+ + +---------+ +---+---+---+ | lactated ringers (LR) infusion | New Bag | 07/28/19 | | | | | Intravenous, CONTINUOUS PRN, | | 15 3:42 | | | | | Starting Thu07/28/14 at 1542, | | PM PST | | | | | Anesthesia Intra-op | | | | | | + +---------+ +---+---+---+ +---+---+ | | | +---+---+ + +-------+ +-------+---+---+ | lidocaine (PF) 2% injection | Given | 07/28/19 | 60 mg | | | | PRN, Starting Thu07/28/14 at | | 15 4:07 | | | | | 1607, Anesthesia Intra-op | | PM PST | | | | + +-------+ +-------+---+---+ +---+---+ | | | +---+---+ + +-------+ +------+---+---+ | midazolam (VERSED) 1 mg/mL | Given | 07/28/19 | 2 mg | | | | injection Intravenous, PRN, | | 15 3:58 | | | | | Anxiety, Starting 07/28/14 at | | PM PST | | | | | 1558, Anesthesia Intra-op | | | | | | + +-------+ +------+---+---+ +---+---+ | | | +---+---+ + +-------+ +------+---+---+ | ondansetron (ZOFRAN) injection | Given | 07/28/19 | 4 mg | | | | PRN, Nausea, Vomiting, Starting | | 15 4:07 | | | | | 07/28/14 at 1607, Anesthesia | | PM PST | | | | | Intra-op | | | | | | + +-------+ +------+---+---+ +---+---+ | | | +---+---+ + +-------+ +--------+---+---+ | propofol (DIPRIVAN) injection | Given | 07/28/19 | 150 mg | | | | PRN, Starting 07/28/14 at | | 15 4:07 | | | | | 1607, Anesthesia Intra-op | | PM PST | | | | + +-------+ +--------+---+---+ +---+---+ | | | +---+---+ documented in this encounter"
--- OUTSIDE RECORDS SUMMARY | ~2019-05-05 | XMS | Encounter Summary ---
Demographics + + + | Address | [address] | | | [place] [address] | + + + | Home Phone [...] [place] | | | | | [address] | | + + + + + Care Team Providers + +------+ + | Care Geographic Information Systems Director Name | Role | Phone | + +------+ + | Davis Ivan MD | PCP | | + +------+ + Reason for Visit + + + | Reason | Comments | + + + | Arm Pain | | + + + | Fever (9 Weeks To 74 | | | Years) | | + + + Encounter Details +--------+ + + + + | Date | Type | Department | Care Team | Description | +--------+ + + + + | 10/28/ | Emergency | [facility] | Gigi Dhaliwal, | Pneumonia of left | | 2016 | | [facility] | MD [address] | lower lobe due to | | | | CENTER [address] | [facility] | infectious organism | | | | [place] | [place] [address] | (Primary Dx); COPD | | | | [address] | [phone] | exacerbation (HCC) | | | | [phone] | | | +--------+ + + + [...] + + + | Blood Pressure | 128/68 | 10/29/2015 7:30 PM | | | | | PDT | | + + + + + | Pulse | 82 | 10/29/2015 8:05 PM | | | | | PDT | | + + + + + | Temperature | 37.3 C (99.1 F) | 10/29/2015 5:11 PM | | | | | PDT | | + + + + + | Respiratory Rate | 18 | 10/29/2015 8:05 PM | | | | | PDT | | + + + + + | Oxygen Saturation | 95% | 10/29/2015 7:35 PM | | | | | PDT | | + + + + + | Inhaled Oxygen | - | - | | | Concentration | | | | + + + + + | Weight | 77.1 kg (170 lb) | 10/29/2015 4:42 PM | | | | | PDT | | + + + + + | Height | 157.5 cm (5' 2") | 10/29/2015 4:42 PM | | | | | PDT | | + + + + + | Body Mass Index | 31.09 | 10/29/2015 4:42 PM | | | | | PDT | | + + + + + documented in this encounter Discharge Instructions Instructions Gigi Dhaliwal MD - 10/29/2015Use your albuterol nebulizer every 4 hours Prednisone for 5 days at 60 mg a day, then resume your normal dose Levaquin daily for 7 days for pneumonia Stop the Augmentin Follow-up with Dr. Park, call him tomorrow Return if your symptoms worsen or other concerns develop AttachmentsThe following attachments cannot be sent through Care Everywhere.ADULT, PNEUMONI A (MICRONESIAN)COPD FLARE (MICRONESIAN)documented in this encounter Medications at Time of [...] | | | | | | type ([facility]) | | | | | | [...] tablet by | 7 | 0 | 10/29/19 | | | (LEVAQUIN) 500 mg | mouth Daily for 7 | tablet | | 16 | 6 | | tablet | days. | | | | | [...] + + + +---------+ + + | morphine (MS | Take one tablet | | 0 | 08/22/19 | | | CONTIN) 30 mg ER | twice daily | | | 16 | 6 | | tablet | | | | | | + + + +---------+ + + | morphine (MSIR) 15 | take 1 tablet by | | 0 | 08/22/19 | | | mg tablet | mouth every 4 hours | | | 16 | 6 | | | if needed for pain | | | | | + + [...] +---------+ + + | predniSONE | Take 6 tablets by | 30 | 0 | 10/29/19 | | | (DELTASONE) 10 mg | mouth Daily for 5 | tablet | | 16 | 6 | | tablet | days. | | | | | [...] | 2018 | Visit | | [address] | | | | | [facility] | | | | | | [place] [address] | | | | | | [phone] | | | | | | | | +--------+ + + + + | 06/08/ | Office | Physical Medicine | Rocky Santos, | | | 2019 | Visit | and Rehabilitation | MD [address] | | | | | | [place] | | | | | | [address] | | | | | | | | +--------+ + + + + | 06/16/ | Appointment | Pulmonology | Eveline Jaffe | | | 2019 | | | MD [address] | | | | | | [address] [place] | | | | | | [place] [address] | | | | | | [phone] | | | | | | | | +--------+ + + + + | 06/16/ | Office | Pulmonology | Eveline Jaffe | | 2019 | Visit | | MD [address] | | | | | | [address] [place] | | | | | | [place] [address] | | | | | | [phone] | | | | | | | | +--------+ + + + + | 08/24/ | Office | Cardiology | Anisha Lopez DO | | | 2019 | Visit | | [address] | | | | | | [place] | | | | | | [address] | | | | | | | | +--------+ + + + + documented as of this encounter Procedures + +--------+ + + + | Procedure Name | Priori | Date/Time | Associated Diagnosis | Comments | | | ty | | | | + +--------+ + + + | URINALYSIS WITH | STAT | 10/29/2015 | | Results for this | | MICROSCOPIC WITH | | 7:29 PM | | procedure are in the | | CULTURE IF INDICATED | | PDT | | results section. | + +--------+ + + + | CULTURE, URINE | Routin | 10/29/2015 | | Results for this | | | e | 7:29 PM | | procedure are in the | | | | PDT | | results section. | + +--------+ + + + | CULTURE, BLOOD | STAT | 10/29/2015 | | Results for this | | | | 7:22 PM | | procedure are in the | | | | PDT | | results section. | + +--------+ + + + | CBC WITH | STAT | 10/29/2015 | | Results for this | | DIFFERENTIAL | | 7:22 PM | | procedure are in the | | | | PDT | | results section. | + +--------+ + + + | CULTURE, BLOOD | STAT | 10/29/2015 | | Results for this | | | | 6:30 PM | | procedure are in the | | | | PDT | | results section. | + +--------+ + + + | COMPREHENSIVE | STAT | 10/29/2015 | | Results for this | | METABOLIC PANEL | | 6:30 PM | | procedure are in the | | | | PDT | | results section. | + +--------+ + + + | XR CHEST PA AND | STAT | 10/29/2015 | | Results for this | | LATERAL | | 5:43 PM | | procedure are in the | | | | PDT | | results section. | + +--------+ + + + | OXYGEN THERAPY | STAT | 10/29/2015 | | | | | | 4:57 PM | | | | | | PDT | | | + +--------+ + + + documented in this encounter Results Culture, Urine (10/29/2015 7:29 PM PDT) + + + + + + | Component | Value | Ref Range | Performed | Pathologist | | | | | At | Signature | + + + + + + | Culture | >100,000 CFU/ml Mixed | | [facility] | | | | deb (multiple | | [facility] | | | | morphologies | | MEDICAL | | | | present)Comment: | | CENTER - | | | | Suggests contamination | | LABORATORY | | | | with urogenital or skin | | | | | | deb.No further work-up | | | | | | to follow. | | | | + + + + + + + + | Specimen | + + | Urine - Spot urine | | sample (specimen) | + + + + + + + | Performing | Address | City/State/Zipcode | Phone Number | | Organization | | | | + + + + + | [facility] | [address] | [place] | [phone] | | [facility] | | [address] | | | - LABORATORY | | | | + + + + + Urinalysis with Microscopic with Culture if Indicated (10/29/2015 7:29 PM PDT) + + + + + + | Component | Value | Ref Range | Performed | Pathologist | | | | | At | Signature | + + + + + + | Color | Merry (A) | Light Yellow, | [facility] | | | | | Yellow, Straw | [facility] | | | | | | MEDICAL | | | | | | CENTER - | | | | | | LABORATORY | | + + + + + + | Clarity | Hazy (A) | Clear | [facility] | | | | | | [facility] | | | | | | MEDICAL | | | | | | CENTER - | | | | | | LABORATORY | | + + + + + + | pH, Urine | 7.0 | 5.0 - 8.0 | [facility] | | | | | | [facility] | | | | | | MEDICAL | | | | | | CENTER - | | | | | | LABORATORY | | + + + + + + | Specific | 1.018 | 1.001 - 1.030 | [facility] | | | Henning | | | [facility] | | | | | | MEDICAL | | | | | | CENTER - | | | | | | LABORATORY | | + + + + + + | Protein, | 30 mg/dL (A) | Negative | [facility] | | | Urine | | | [facility] | | | | | | MEDICAL | | | | | | CENTER - | | | | | | LABORATORY | | + + + + + + | Blood, | Moderate (A) | Negative | [facility] | | | Urine | | | [facility] | | | | | | MEDICAL | | | | | | CENTER - | | | | | | LABORATORY | | + + + + + + | Glucose, | Negative | Negative | [facility] | | | Urine | | | [facility] | | | | | | MEDICAL | | | | | | CENTER - | | | | | | LABORATORY | | + + + + + + | Ketones, | 20 mg/dL (A) | Negative | [facility] | | | Urine | | | [facility] | | | | | | MEDICAL | | | | | | CENTER - | | | | | | LABORATORY | | + + + + + + | Bilirubin, | Negative | Negative | [facility] | | | Urine | | | [facility] | | | | | | MEDICAL | | | | | | CENTER - | | | | | | LABORATORY | | + + + + + + | Nitrite, | Negative | Negative | [facility] | | | Urine | | | [facility] | | | | | | MEDICAL | | | | | | CENTER - | | | | | | LABORATORY | | + + + + + + | Leukocyte | Large (A) | Negative | [facility] | | | Esterase, | | | [facility] | | | Urine | | | MEDICAL | | | | | | CENTER - | | | | | | LABORATORY | | + + + + + + | Urobilinoge | Negative | 0.2 mg/dL, 1.0 | [facility] | | | n, Urine | | mg/dL, Negative | [facility] | | | | | | MEDICAL | | | | | | CENTER - | | | | | | LABORATORY | | + + + + + + | WBC UA | 25-50 (A) | 0 - 2 /HPF | [facility] | | | | | | [facility] | | | | | | MEDICAL | | | | | | CENTER - | | | | | | LABORATORY | | + + + + + + | RBC UA | 50-100 (A) | 0 - 2 /HPF | [facility] | | | | | | [facility] | | | | | | MEDICAL | | | | | | CENTER - | | | | | | LABORATORY | | + + + + + + | SQUAMOUS | 50-100 (A) | 0 - 2 /LPF | [facility] | | | EPITHELIAL | | | [facility] | | | UA | | | MEDICAL | | | | | | CENTER - | | | | | | LABORATORY | | + + + + + + | BACTERIA UA | 1+ (A) | Negative /HPF | [facility] | | | | | | [facility] | | | | | | MEDICAL | | | | | | CENTER - | | | | | | LABORATORY | | + + + + + + | MUCUS UA | Present (A) | Negative /LPF | [facility] | | | | | | [facility] | | | | | | MEDICAL | | | | | | CENTER - | | | | | | LABORATORY | | + + + + + + | URINE | Urine Culture Set Up | | [facility] | | | COMMENT | | | [facility] | | | | | | MEDICAL | | | | | | CENTER - | | | | | | LABORATORY | | + + + + + + + + | Specimen | + + | Urine - Spot urine | | sample (specimen) | + + + + + + + | Performing | Address | City/State/Zipcode | Phone Number | | Organization | | | | + + + + + | [facility] | [address] | [place] | [phone] | | [facility] | | [address] | | | - LABORATORY | | | | + + + + + Culture, Blood (10/29/2015 7:22 PM PDT) + + + + + + | Component | Value | Ref Range | Performed | Pathologist | | | | | At | Signature | + + + + + + | Culture | No Growth | | [facility] | | | | | | [facility] | | | | | | MEDICAL | | | | | | CENTER - | | | | | | LABORATORY | | + + + + + + + + | Specimen | + + | Blood - Peripheral | | blood specimen | | (specimen) | + + + + + + + | Performing | Address | City/State/Zipcode | Phone Number | | Organization | | | | + + + + + | [facility] | [address] | [place] | [phone] | | [facility] | | [address] | | | - LABORATORY | | | | + + + + + CBC with Differential (10/29/2015 7:22 PM PDT) + + + + + + | Component | Value | Ref Range | Performed | Pathologist | | | | | At | Signature | + + + + + + | WBC | 13.1 (H) | 4.0 - 11.0 K/uL | [facility] | | | | | [facility] | | | | | | MEDICAL | | | | | | CENTER - | | | | | | LABORATORY | | + + + + + + | RBC | 4.19 | 3.70 - 5.20 | [facility] | [...] + + + + | Hematocrit | 38.5 | 34.0 - 47.0 % | [facility] | | | | | | [facility] | | | | | | MEDICAL | | | | | | CENTER - | | | | | | LABORATORY | | + + + + + + | MCV | 91.9 | 83.0 - 101.0 fL | [facility] | | | | | | [facility] | | | | | | MEDICAL | | | | | | CENTER - | | | | | | LABORATORY | | + + + + + + | MCH | 29.0 | 28.0 - 35.0 pg | [facility] [...] + + + + | RDW-CV | 16.2 (H) | <15.0 % | [facility] | | | | | | [facility] | | | | | | MEDICAL | | | | | | CENTER - | | | | | | LABORATORY | | + + + + + + | Platelet | 203 | 140 - 440 K/uL | [facility] [...] + + + + | % | 89.8 (H) | 45.0 - 82.0 % | [facility] | | | Neutrophils | | | [facility] | | | | | | MEDICAL | | | | | | CENTER - | | | | | | LABORATORY | | + + + + + + | % | 4.8 (L) | 20.0 - 45.0 % | [facility] | | | Lymphocytes | | | [facility] | | | | | | MEDICAL | | | | | | CENTER - | | | | | | LABORATORY | | + + + + + + | % Monocytes | 5.0 | 4.0 - 12.0 % | [facility] | | | | | | [facility] | | | | | | MEDICAL | | | | | | CENTER - | | | | | | LABORATORY | | + + + + + + | % | 0.2 | 0.0 - 5.0 % | [facility] [...] + + + + | Absolute | 11.80 (H) | 1.80 - 8.50 | [facility] | | | Neutrophils | | K/uL | [facility] | | | | | | MEDICAL | | | | | | CENTER - | | | | | | LABORATORY | | + + + + + + | Absolute | 0.60 | 0.60 - 3.20 | [facility] | | | Lymphocytes | | K/uL | [facility] | [...] | + + + + + | [facility] | [address] | [place] | [phone] | | [facility] | | [address] | | | - LABORATORY | | | | + + + + + Culture, Blood (10/29/2015 6:30 PM PDT) + + + + + + | Component | Value | Ref Range | Performed | Pathologist | | | | | At | Signature | + + + + + + | Culture | No Growth | | [facility] | | | | | | [facility] | | | | | | MEDICAL | | | | | | CENTER - | | | | | | LABORATORY | | + + + + + + + + | Specimen | + + | Blood - Peripheral | | blood specimen | | (specimen) | + + + + + + + | Performing | Address | City/State/Zipcode | Phone Number | | Organization | | | | + + + + + | [facility] | [address] | [place], [place] | [phone] | | [facility] | | [address] | | | - LABORATORY | | | | + + + + + Comprehensive Metabolic Panel (10/29/2015 6:30 PM PDT) + + + + + [...] [facility] | [facility] | | | | [facility] | [facility] | | | | | | CENTER - | | | | | | LABORATORY | | + + + + + + | BUN | 11 | 7 - 18 mg/dL | [facility] | | | | | | [facility] | | | | | | MEDICAL | | | | | | CENTER - | | | | | | LABORATORY | | + + + + + + | Creatinine | 0.84 | 0.60 - 1.30 | [facility] | [...] | | | FILTRATION | mL/min/1.73m2 | [facility] | | | GABONESE | RATE,ESTIMATED | | MEDICAL | | | | mL/min/1.32l5Jmdj than | | CENTER - | | [...] | 2.6 (L) | 3.2 - 5.0 g/dL | [facility] | | | | | | [facility] | | | | | | MEDICAL | | | | | | CENTER - | | | | | | LABORATORY | | + + + + + + | Bilirubin | 0.8 | 0.1 - 1.5 mg/dL | [facility] | | | Total | | | [facility] | | | | | | MEDICAL | | | | | | CENTER - | | | | | | LABORATORY | | + + + + + + | Total | 5.8 (L) | 6.0 - 7.8 g/dL | [facility] | | | Protein | | | [facility] | | | | | | MEDICAL | | | | | | CENTER - | | | | | | LABORATORY | | + + + + + + | AST | 17 | 10 - 42 U/L | [facility] [...] + + + + | Alkaline | 56 | 40 - 110 U/L | [facility] | | | Phosphatase | | | [facility] | | | | | | MEDICAL | | | | | | CENTER - | | | | | | LABORATORY | | + + + + + + | Globulin | 3.2 | 2.1 - 3.8 g/dL | [facility] | | | | | | [facility] | | | | | | MEDICAL | | | | | | CENTER - | | | | | | LABORATORY | | + + + + + + | Albumin/Mattie | 0.8 | 0.8 - 2.0 | [facility] | | | bulin Ratio | | | [facility] | | | | | | MEDICAL | | | | | | CENTER - | | | | | | LABORATORY | | + + + + + + | BUN/Creatin | 13.1 | | [facility] | | | [facility] [...] [facility] | [address] | [place] | [phone] | | [facility] | | [address] | | | - LABORATORY | | | | + + + + + XR Chest PA and Lateral (10/29/2015 5:43 PM PDT) + + | Specimen | + + | | + + + + + | Narrative | Performed At | + + + | PA AND LATERAL CHEST 10/29/2015 5:03 PM CLINICAL HISTORY: | [facility] | | Shortness of breath, history of lung cancer COMPARISON: Chest | | | radiographs October 03 and multiple previous radiographs, chest CT March | | | 2014 FINDINGS: The implanted left internal jugular port catheter | | | again extends to the level of the mid SVC. There is similar mild | | | rightward mediastinal shift. The cardiomediastinal silhouette and | | | pulmonary vasculature are otherwise unremarkable. Mild hazy | | | reticular opacity in the right mid to lower lung and mild blunting of | | | the right costophrenic angle are similar in distribution to imaging | | | from October 03. Opacity at the right base is slightly more confluent. | | | Hazy reticular opacity at the left base is stable and corresponds | | | with epicardial fat visible on previous CT. The upper lung arguello | | | are clear. No pneumothorax or definite pleural effusion is visible. | | | There is generalized osteopenia. Fusion hardware again projects | | | over the cervical spine. Truncation of the distal right clavicle is | | | chronic. Cholecystectomy clips are again visible. IMPRESSION - | | | 1. SLIGHTLY MORE CONFLUENT RIGHT BASILAR RETICULAR OPACITY | | | COMPARED WITH IMAGING OF OCTOBER 03, POSSIBLY REFLECTING ATELECTASIS OR | | | EVOLVING THERAPY RELATED SCAR, ALTHOUGH EARLY INFILTRATE IS NOT | | | EXCLUDED. CONSIDER INTERVAL FOLLOW-UP. Dictated and Signed by: | | | Herminio Levi MD Electronically signed: 10/30/2015 8:12 AM | | + + + + + | Procedure Note | + + | Fabián, Rad Results In - 10/30/2015 8:16 AM PDT PA AND LATERAL CHEST 10/29/2015 5:03 PM | | | | CLINICAL HISTORY: Shortness of breath, history of lung cancer | | | | COMPARISON: Chest radiographs October 03 and multiple previous radiographs, chest CT | | March 2015 | | | | FINDINGS: The implanted left internal jugular port catheter again extends to the | | level of the mid SVC. There is similar mild rightward mediastinal shift. The | | cardiomediastinal silhouette and pulmonary vasculature are otherwise | | unremarkable. Mild hazy reticular opacity in the right mid to lower lung and | | mild blunting of the right costophrenic angle are similar in distribution to | | imaging from October 03. Opacity at the right base is slightly more confluent. Hazy | | reticular opacity at the left base is stable and corresponds with epicardial fat | | visible on previous CT. The upper lung arguello are clear. No pneumothorax or | | definite pleural effusion is visible. There is generalized osteopenia. Fusion | | hardware again projects over the cervical spine. Truncation of the distal right | | clavicle is chronic. Cholecystectomy clips are again visible. | | | | IMPRESSION - | | | | 1. SLIGHTLY MORE CONFLUENT RIGHT BASILAR RETICULAR OPACITY COMPARED WITH | | IMAGING OF OCTOBER 03, POSSIBLY REFLECTING ATELECTASIS OR EVOLVING THERAPY RELATED | | SCAR, ALTHOUGH EARLY INFILTRATE IS NOT EXCLUDED. CONSIDER INTERVAL FOLLOW-UP. | | | | Dictated and Signed by: Herminio Levi MD | | Electronically signed: 10/30/2015 8:12 AM | + + + +---------+ + + | Performing | Address | City/State/Zipcode | Phone Number | | Organization | | | | + +---------+ + + | [facility] | | | | + +---------+ + + documented in this encounter Visit Diagnoses + + | Diagnosis | + + | Pneumonia of left lower lobe due to infectious organism (HCC) - Primary | + + | COPD exacerbation (HCC) Obstructive chronic bronchitis with exacerbation | + + documented in this encounter Administered Medications + +--------+ +-------+------+------+ | Medication Order | MAR | Action | Dose | Rate | Site | | | Action | Date | | | | + +--------+ +-------+------+------+ | albuterol-ipratropium (DUONEB) | Given | /30/20 | 3 mLs | | | | 2.5-0.5 mg/3 mL nebulizer | | 16 5:09 | | | | | solution 3 mL 3 mL, | | PM PDT | | | | | Nebulization, RT Once, Mon | | | | | | | 10/28/16 at 1700, For 1 dose | | | | | | + +--------+ +-------+------+------+ +---+---+ | | | +---+---+ + +-------+ +-------+---+---+ | heparin 100 units/mL flush | Given | 10/29/19 | 500 | | | | injection 500 Units 500 Units ( | 16 8:15 | Units | | | | mL), Intracatheter, ONCE, Mon | | PM PDT | | | | | 10/29/15 at 1940, For 1 dose | | | | | | + +-------+ +-------+---+---+ +---+---+ | | | +---+---+ + +-------+ +--------+---+---+ | levofloxacin (LEVAQUIN) tablet | Given | 10/29/19 | 500 mg | | | | 500 mg 500 mg, Oral, ONCE, Mon | | 16 7:04 | | | | | 10/29/15 at 1820, For 1 dose, Give | | PM PDT | | | | | 2 hours before or 2 hours after | | | | | | | antacids, iron, or zinc., | | | | | | | Indications: Pneumonia | | | | | | + +-------+ +--------+---+---+ +---+---+ | | | +---+---+ + +-------+ +-------+---+---+ | predniSONE (DELTASONE) tablet | Given | 10/29/19 | 60 mg | | | | 60 mg 60 mg, Oral, ONCE, Thu | | 16 7:04 | | | | | 10/29/15 at 1820, For 1 dose | | PM PDT | | | | + +-------+ +-------+---+---+ +---+---+ | | | +---+---+ documented in this encounter
--- OUTSIDE RECORDS SUMMARY | ~2019-05-05 | XMS | Encounter Summary ---
Demographics + + + | Address | [address] | | | [place] [address] | + + + | Home Phone [...] [place] | | | | | [address] | | + + + + + Care Team Providers + +------+ + | Care Workforce Consultant Name | Role | Phone | + +------+ + | Davis Ivan MD | PCP | | + +------+ + Reason for Visit +---------+ + | Reason | Comments | +---------+ + | Results | nocturnal oximetry | +---------+ + Encounter Details +--------+ + + + + | Date | Type | Department | Care Team | Description | +--------+ + + + + | 06/14/ | Telephone | [facility] | [place], | Results (nocturnal | | 2015 | | PULMONARY [address] | Ayana Looney MD | oximetry) | | | | [place], | | | | | | [place] [address] | | | | | | [phone] | | | +--------+ + + + [...] | 2018 | Visit | | [address] | | | | | | [facility] | | | | | | [place] [address] | | | | | | [phone] | | | | | | | | +--------+ + + + + | 06/08/ | Office | Physical Medicine | Rocky Santos, | | | 2019 | Visit | and Rehabilitation | [address] | | | | | | [place] | | | | | | [address] | | | | | | | | +--------+ + + + + | 06/16/ | Appointment | Pulmonology | Eveline Jaffe | | | 2019 | | | MD [address] | | | | | | [address] [place] | | | | | | [place] [address] | | | | | | [phone] | | | | | | | | +--------+ + + + + | 06/16/ | Office | Pulmonology | Eveline Jaffe | | | 2019 | Visit | | MD [address] | | | | | | [address] [place] | | | | | | [place], [place] [address] | | | | | | [phone] | | | | | | | | +--------+ + + + + | 08/24/ | Office | Cardiology | Anisha Lopez DO | | | 2019 | Visit | | [address] | | | | | | [place] | | | | | | [address] | | | | | | | | +--------+ + + + + documented as of this encounter Visit Diagnoses Not on filedocumented in this encounter"
--- OUTSIDE RECORDS SUMMARY | ~2019-05-05 | XMS | Encounter Summary ---
Demographics + + + | Address | [address] | | | [place] [address] | + + + | Home Phone [...] | + + + + + | Jeewl Azevedo | ECON | [address] | | | | | [place] | | | | | [address] | | + + + + + Care Team Providers + +------+ + | Care Certified Surgical Assistant Name | Role | Phone | + +------+ + | Davis Ivan MD | PCP | | + +------+ + Encounter Details +--------+ + + + + | Date | Type | Department | Care Team | Description | +--------+ + + + + | 10/11/ | Hospital | [facility] | Adelita Lu MD | Recurrent squamous | | 2015 | Encounter | [facility] | [address] [facility] | cell carcinoma of | | | | ONCOLOGY CLINIC [address] | [place], [place] | lung, right (HCC) | | | | [facility] | [address] | (Primary Dx); | | | | [place] [address] | [phone] | Pulmonary nodules; | | | | [phone] | | Squamous cell lung | | [...] 4:39 PM PDT .ws Hem-Onc Progress Note [facility] Patient name:Thea Carmona : 1945 Age: 69 y.o. CSN: [id number] Date of Service: 10/11/2014 Identifying Statement: Thea Carmona is a 69 y.o. female from [facility] with clinical stage II, non-small cell [...] 2.CT-guided biopsy by [facility] radiology at [facility] of the right lung massshows squamous [...] Taxol in August 2014 9. Admitted to [facility] on September 27, 2014 for [...] pulmonary disease) ([facility]) on albuterol Spondylolisthesis of cervical region Spinal stenosis has tried cortisone injections Osteoporosis Depression Pneumonia 2009 hospitalized 5 days Rheumatoid arthritis(714.0) ([facility]) on prednisone and [facility]ot[facility]ate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 RESPIRATORY THERAPY SUPPLIES [employer]Menu ResMed S9 auto CPAP 5-9 cm H2O. Heater and Humidifier . All necessary supplies. AHI 11.6. Diagnosis Code(s)327.23, also has co morbid hypertension , history of stroke. Length of Need 99 months. Please send order to [facility]. RESPIRATORY THERAPY SUPPLIES [facility] [employer] Respironics autotitrating CPAP at 5-9 cm H2O [...] mL/min/1.73m2 imaging: CT scan was obtained from [facility] and results were reviewed which showed right-sided [...] | | | | | [place] [address] | | | | | | [phone] | | | | | | | | +--------+ + + + + | 06/08/ | Office | Physical Medicine | Rocky Santos, | | | 2019 | Visit | and Rehabilitation | MD Nichole Landis | | | | | | [place] | | | | | | [id number] | | | | | | | | +--------+ + + + + | 06/16/ | Appointment | Pulmonology | Eveline Jaffe | | 2019 | | | MD [address] | | | | | | [address] | | | | | | [place] [address] | | | | | | [phone] | | | | | | | | +--------+ + + + + | 06/16/ | Office | Pulmonology | Eveline Jaffe | | | 2019 | Visit | | MD Raul [address] | | | | | | [address] | | | | | | [place] [address] | | | | | | [phone] | | | | | | | | +--------+ + + + + | 08/24/ | Office | Cardiology | Anisha oLpez DO | | | 2019 | Visit | | [address] | | | | | | [place] | | | | | | [address] | | | | | | | [...] | 0.77 | 0.60 - 1.30 | [facility] | | | | | mg/dL | [facility] | | | [facility] | | | | | | C[facility] - | | | | | | LABORATORY | | + + + + + + | eGFR if not | >60Comment: GLOMERULAR | >=60 | [facility] | | | | FILTRATION | mL/min/1.73m2 | Janet [facility] | | | HONDURAN | RATE,ESTIMATED | | MEDICAL | | | | mL/min/1.77e5Sukk than | | CENTER - | | [...] | [facility] | [address] | [place] | [phone] | | [facility] | | [address] | | | - LABORATORY | | [...] ST. | [address] | [place], [place] | [phone] | | [facility] | | [address] | | | - LABORATORY | | [...]
--- OUTSIDE RECORDS SUMMARY | ~2019-05-05 | XMS | Encounter Summary ---
Demographics + + + | Address | [address] | | | [place] [address] | + + + | Home Phone [...] [place] | | | | | [address] | | + + + + + Care Team Providers + +------+ + | Care Inhalation Therapy Aide Name | Role | Phone | + +------+ + | Davis Ivan MD | PCP | | + +------+ + Encounter Details +--------+ + + + + | Date | Type | Department | Care Team | Description | +--------+ + + + + | 03/17/ | Hospital | [facility] | Conversion | | | 2013 | Encounter | [facility] | Transaction, | | | | | CLINIC [address] | Provider Unknown | | | | | [place], [place] | | | | | | [address] | (Fax) | | | | | [phone] | | | +--------+ + + + [...] | | | | | [place] [address] | | | | | | [phone] | | | | | | | | +--------+ + + + + | 06/08/ | Office | Physical Medicine | Rocky Santos, | | | 2019 | Visit | and Rehabilitation | MD Nichole Landis | | | | | | [place] | | | | | | [address] | | | | | | | | +--------+ + + + + | 06/16/ | Appointment | Pulmonology | Eveline Jaffe | | 2019 | | | MD [address]ole [address] | | | | | | [address] | | | | | | [place] [address] | | | | | | [phone] | | | | | | | | +--------+ + + + + | 06/16/ | Office | Pulmonology | Eveline Jaffe | | | 2019 | Visit | | MD Raul [address] | | | | | | [address] [place] | | | | | | [place] [address] | | | | | | [phone] | | | | | | | | +--------+ + + + + | 08/24/ | Office | Cardiology | Anisha Lopez DO | | | 2019 | Visit | | [address] | | | | | | [place] | | | | | | [address] | | | | | | | [...] CHEST 2 VIEW FRONTAL | | AND QUPCNKK2903/17/2014 2:44 PM HISTORY:68 years. Female. History of [...] | | | Patient | performed at [facility];[address] | | LAB | | | | [address];[place] | | | | | | [address] | | | | + + + [...] | | | | | performed at [facility];[address] | | | | | | [address];[place], [place] | | | | | | [address] | | | | + + + [...] | | | | | [place] [address] | | | | + + + + + + | RED CELL | 4.25Comment: Testing | 3.70 - 5.10 | EXTERNAL | | | COUNT | performed at [facility], [address] | M/uL | LAB | | | | [address], | | | | | | [place] [address] | | | | + + + + + + | Hgb | 12.8Comment: Testing | 11.3 - 15.5 | EXTERNAL | | | | performed at [facility], [address] | g/dL | LAB | | | | [address], | | | | | | [place] [address] | | | | + + + + + + | Hematocrit, | 39.4Comment: Testing | 34.0 - 46.0 % | EXTERNAL | | | POC | performed at [facility], [address] | | LAB | | | | [address], | | | | | | [place] [address] | | | | + + + + + + | MCV | 92.6Comment: Testing | 80.0 - 100.0 fl | EXTERNAL | | | | performed at [facility], [address] | | LAB | | | | [address], | | | | | | [place] [address] | | | | + + + + + + | MCH | 30.0Comment: Testing | 27.0 - 34.0 pg | EXTERNAL | | | | performed at [facility], [address] | | LAB | | | | [address], | | | | | | [place] [address] | | | | + + + + + + | MCHC | 32.4Comment: Testing | 32.0 - 35.5 | EXTERNAL | | | | performed at [facility], [address] | g/dL | LAB | | | | [address], | | | | | | [place] [address] | | | | + + + + + + | RDW-CV | 67.4 (H)Comment: Testing | 37 - 53 fl | EXTERNAL | | | | performed at [facility], [address] | | LAB | | | | [address], | | | | | | [place] [address] | | | | + + + + + + | Platelet | 205Comment: Testing | 150 - 400 K/uL | EXTERNAL | | | Count | performed at [facility], [address] | | LAB | | | Plasma | [address], | | | | | | [place] [address] | | | | + + + + + + | MPV | 8.1Comment: Testing | fl | EXTERNAL | | | | performed at [facility], [address] | | LAB | | | | [address], | | | | | | [place] [address] | | | | + + + + + + | Differentia | AUTOMATEDComment: | | EXTERNAL | | | l Type | Testing performed at | | LAB | | | | [facility], [address] | | | | | | [place] | | | | | | [address] | | | | + + + + + + | % Segmented | 80.6Comment: Testing | % | EXTERNAL | | | | performed at [facility], [address] | | LAB | | | Neutrophils | [address], | | | | | | [place] [address] | | | | + + + + + + | % | 11.0Comment: Testing | % | EXTERNAL | | | Lymphocytes | performed at [facility], [address] | | LAB | | | | [address], | | | | | | [place], [place] [address] | | | | + + + + + + | % Monocytes | 6.9Comment: Testing | % | EXTERNAL | | | | performed at [facility], [address] | | LAB | | | | [address], | | | | | | [place], [place] [address] | | | | + + + + + + | % | 0.7Comment: Testing | % | EXTERNAL | | | Eosinophils | performed at [facility], [address] | | LAB | | | | [address], | | | | | | [place] [address] | | | | + + + + + + | % Basophils | 0.8Comment: Testing | % | EXTERNAL | | | | performed at [facility], [address] | | LAB | | | | [address], | | | | | | [place] [address] | | | | + + + + + + | Absolute | 5.7Comment: Testing | 1.9 - 7.4 K/uL | EXTERNAL | | | Segmented | performed at [facility], [address] | | LAB | | | Neutrophils | [address], | | | | | | [place] [address] | | | | + + + + + + | Absolute | 0.8 (L)Comment: Testing | 1.0 - 3.9 K/uL | EXTERNAL | | | Lymphocytes | performed at [facility], [address] | | LAB | | | | [address], | | | | | | [place] [address] | | | | + + + + + + | Absolute | 0.5Comment: Testing | 0 - 0.8 K/uL | EXTERNAL | | | Monocytes | performed at [facility], [address] | | LAB | | | | [address], | | | | | | [place] [address] | | | | + + + + + + | Absolute | 0.0Comment: Testing | 0 - 0.5 K/uL | EXTERNAL | | | Eosinophils | performed at [facility], [address] | | LAB | | | | [address], | | | | | | [place] [address] | | | | + + + + + + | Absolute | 0.1Comment: Testing | 0 - 0.1 K/uL | EXTERNAL | | | Basophils | performed at [facility], [address] | | LAB | | | | [address], | | | | | | [place] [address] | | | | + + + + + + | RBC | 3+Comment: ANISONORMAL | | EXTERNAL | | | Morphology | PLT MORPHTesting | | LAB | | | | performed at [facility], [address] | | | | | | [address], | | | | | | [place] [address] | | | | | | | [...] | | | | | [place] [address] | | | | + + + + + + | K | 4.2Comment: Testing | 3.5 - 4.9 | EXTERNAL | | | | performed at [facility], [address] | mmol/L | LAB | | | | [address], | | | | | | [place] [address] | | | | + + + + + + | Cl | 105Comment: Testing | 99 - 109 mmol/L | EXTERNAL | | | | performed at [facility], [address] | | LAB | | | | [address], | | | | | | [place] [address] | | | | + + + + + + | CO2 | 29Comment: Testing | 23 - 32 mmol/L | EXTERNAL | | | | performed at [facility], [address] | | LAB | | | | [address], | | | | | | [place] [address] | | | | + + + + + + | Anion Gap | 8Comment: Testing | 5 - 20 mmol/L | EXTERNAL | | | | performed at [facility], [address] | | LAB | | | | [address], | | | | | | [place] [address] | | | | + + + + + + | Glucose, | 98Comment: Testing | 65 - 99 mg/dL | EXTERNAL | | | Fasting | performed at [facility], [address] | | LAB | | | | [address], | | | | | | [place] [address] | | | | + + + + + + | BUN | 10Comment: Testing | 8 - 25 mg/dL | EXTERNAL | | | | performed at [facility], [address] | | LAB | | | | [address], | | | | | | [place] [address] | | | | + + + + + + | Creatinine | 0.85Comment: Testing | 0.50 - 1.00 | EXTERNAL | | | | performed at [facility], [address] | mg/dL | LAB | | | | [address], | | | | | | [place] [address] | | | | + + + + + + | BUN/Creatin | 12Comment: Testing | | EXTERNAL | | | ine Ratio | performed at [facility], [address] | | LAB | | | | [address], | | | | | | [place] [address] | | | | + + + + + + | Calcium | 9.6Comment: Testing | 8.5 - 10.2 | EXTERNAL | | | | performed at [facility], [address] | mg/dL | LAB | | | | [address], | | | | | | [place] [address] | | | | + + + [...] | | | | | | at [facility], [address] | | | | | | [address], | | | | | | [place] [address] | | | | + + + [...] EXTERNAL LAB | | Testing performed at [address];[place] [address] MRSA PCR | | | NEGATIVE Testing performed at | | | [address];[place] [address] | | + + + + +---------+ + + | Performing | Address | City/State/Zipcode | Phone Number | | Organization | | | | + +---------+ + + | EXTERNAL LAB | | | | + +---------+ + + documented in this encounter Visit Diagnoses Not on filedocumented in this encounter"
--- OUTSIDE RECORDS SUMMARY | ~2019-05-05 | XMS | Encounter Summary ---
Demographics + + + | Address | [address] | | | [place] [address] | + + + | Home Phone [...] [place] | | | | | [address] | | + + + + + Care Team Providers + +------+ + | Care Departmental Buyer Name | Role | Phone | [...] 08/04/ | Refill | [facility] [place] | Grumeet Vargas | Medication Refill | | 2017 | | PULMONARY [address] | MD [address] | | | | | [place], | [place] | | | | | [place] [address] | [place] [address] | | | | | [phone] | [phone] | | | | | | | [...] | | | | | [facility] | | | | | | [place] [address] | | | | | | [phone] | | | | | | | | +--------+ + + + + | 06/08/ | Office | Physical Medicine | Rocky Santos, | | | 2019 | Visit | and Rehabilitation | [address] | | | | | | [place] | | | | | | [address] | | | | | | | | +--------+ + + + + | 06/16/ | Appointment | Pulmonology | Eveline Jaffe | | | 2019 | | | MD [address]ole [address] | | | | | | [address] [place] | | | | | | [place] [address] | | | | | | [phone] | | | | | | | | +--------+ + + + + | 06/16/ | Office | Pulmonology | Eveline Jaffe | | | 2019 | Visit | | MD Nichole Carter | | | | | | [address] [place] | | | | | | [place], [place] [address] | | | | | | [phone] | | | | | | | | +--------+ + + + + | 08/24/ | Office | Cardiology | Anisha Lopez DO | | | 2019 | Visit | | [address] | | | | | | [place] | | | | | | [address] | | | | | | | | +--------+ + + + + documented as of this encounter Visit Diagnoses + + | Diagnosis | + + | Chronic obstructive pulmonary disease, unspecified COPD type (HCC) - Primary | + + documented in this encounter"
--- OUTSIDE RECORDS SUMMARY | ~2019-05-05 | XMS | Encounter Summary ---
Demographics + + + | Address | [address] | | | [place] [address] | + + + | Home Phone | | + + + | Preferred Language | Unknown | + + + | Marital Status | | + + + | Orthodoxy Affiliation | Unknown | + + + | Race | Unknown | + + + | Ethnic Group | Unknown | + + + Author + + + | Author | [facility] | | | and [place] | + + + | Organization | [facility] | | [...] [place] | | | | | [address] | | + + + + + Care Team Providers + +------+ + | Care Operations Clerk Name | Role | Phone | + +------+ + | Caitlin Chino MD | PCP | | + +------+ + Encounter Details +--------+ + + + + | Date | Type | Department | Care Team | Description | +--------+ + + + + | 03/25/ | Imaging | [facility] | Provider, | | | 2019 | Exam | [facility] EXTERNAL | [address] | | | | | IMAGING | [address] | | | | | [phone] | [place] [address] | | +--------+ + + + + [...] | | | | | [place] [address] | | | | | | [phone] | | | | | | | | +--------+ + + + + | 06/08/ | Office | Physical Medicine | Rocky Santos | | | 2019 | Visit | and Rehabilitation | MD [address] | | | | | | [place] | | | | | | [address] | | | | | | | | +--------+ + + + + | 06/16/ | Appointment | Pulmonology | Eveline Jaffe | | 2019 | | | MD [address] | | | | | | [address] | | | | | | [place] [address] | | | | | | [phone] | | | | | | | | +--------+ + + + + | 06/16/ | Office | Pulmonology | Eveline Jaffe | | | 2019 | Visit | | MD Raul [address] | | | | | | [address] | | | | | | [place] [address] | | | | | | [phone] | | | | | | | | +--------+ + + + + | 08/24/ | Office | Cardiology | Anisha Lopez DO | | | 2019 | Visit | | [address] | | | | | | [place] | | | | | | [address] | | | | | | | | +--------+ + + + + documented as of this encounter Procedures + +--------+ + + + | Procedure Name | Priori | Date/Time | Associated Diagnosis | Comments | | | ty | | | | + +--------+ + + + | PET CT SKULL BASE TO | Routin | 07/07/2018 | | Results for this | | MID THIGH | e | 12:00 AM | | procedure are in the | | | | PST | | results section. | + +--------+ + + + documented in this encounter Results PET CT Skull Base To Mid Thigh (07/07/2018 12:00 AM PST) + + | Specimen | [...]
--- OUTSIDE RECORDS SUMMARY | ~2019-05-05 | XMS | Encounter Summary ---
Demographics + + + | Address | [address] | | | [place] [address] | + + + | Home Phone | | + + + | Preferred Language | Unknown | + + + | Marital Status | | + + + | Latter Day Affiliation | Unknown | + + + | Race | Unknown | + + + | Ethnic Group | Unknown | + + + Author + + + | Author | [facility] | | | and [place] | + + + | Organization | [facility] | | | [...] [place] | | | | | [address] | | + + + + + Care Team Providers + +------+ + | Care Furnace Liner Name | Role | Phone | + [...] | | Cough | [place], | [address] | | | | | Procedures | Ayana B, | [place], | | | | | CT Chest w | MD [address] | [place] [address] | | | | | Contrast | [address] | Phone: | | | | | | [place], | [phone] | | | | | | [place] [address] | Fax: | | | | | | | [phone] | +--------+--------+ + + + + Reason for Visit +--------+ + | Reason | Comments | +--------+ + | COPD | | +--------+ + Encounter Details +--------+---------+ + + + | Date | Type | Department | Care Team | Description | +--------+---------+ + + + | 08/24/ | Office | [facility] | Offenstein, | Cough (Primary Dx); | | 2014 | Visit | PULMONARY [address] | Ayana Looney MD | COPD (chronic | | | | [place], | | obstructive | | | | [place] [address] | | pulmonary disease); | | | | [phone] | | Recurrent squamous | | | [...] + + + | Blood Pressure | 142/74 | 08/24/2014 11:25 AM | | | | | PDT | | + + + + + | Pulse | 86 | 08/24/2014 11:25 AM | | | | | PDT | | + + + + + | Temperature | - | - | | + + + + + | Respiratory Rate | - | - | | + + + + + | Oxygen Saturation | 93% | 08/24/2014 11:25 AM | | | | | PDT | | + + + + + | Inhaled Oxygen | - | - | | | Concentration | | | | + + + + + | Weight | 67 kg (147 lb 9.6 | 08/24/2014 11:25 AM | | | | oz) | PDT | | + + + + + | Height | 157.5 cm (5' 2") | 08/24/2014 11:25 AM | | | | | PDT | | + + + + + | Body Mass Index | 27 | 08/24/2014 11:25 AM | | | | | PDT | | + + + + + documented in this encounter Patient Instructions Patient Instructions Ayana Taylor MD - 08/24/2014 12:11 PM PDTTake prednisone as follows: Start 4 tablets by mouth for 3 days, then 3 tablets by mouth for three days, then 2 tablets by mouth for 3 days, then resume 10mg daily. Schedule chest CT scan. documented in this encounter Progress Notes Ayana Taylor MD - 08/24/2014 11:46 AM PDTFormatting of this note might be differe nt from the original. Pulmonary Follow Up HPI Thea Carmona is a 69 y.o. female patient of Davis Ivan here today for add on for COPD and dyspnea. She comes in today for persistent coughing. This started originally back in June. At their last visit, we had given her a course of azithromycin and prednisone. She did not feel like this helped her cough at all. She then took a course of levofloxacin at the beginn ing of the month from Dr. Lu. She also took a course [facility] Ivan. We started her back on Spiriva as well a couple of week s ago. She has been taking her baseline prednisone at 10mg. Despite all of this, she has continued to cough. She was having a lot more shortness of deshaun ath up until 2 weeks ago, which lasted about a week. This has slowly started getting a littl e bit better. She is not certain the Spiriva helped her breathing at all. She thinks it poss ible the Spiriva made her cough worse. She is currently on a regimen of Symbicort 160 mcg 2 puffs twice daily and Spiriva once marlen ly. She used her ProAir once yesterday, but has not used it much in the last two weeks. She is using her albuterol nebulizer once to twice daily. She has been having a little bit of heartburn or reflux. She notes that it belle down low, in her epigastric region, as opposed higher up in her chest. They told her the radiation mickie ht do this. She has been getting more radiation as well as chemotherapy. She is on her third week of tr eatment. Her thinks she did get better in July, and then had worsened around the time sh e started radiation. Past Medical History Past Medical History Diagnosis Date COPD (chronic obstructive pulmonary disease) (HCC) on albuterol Spondylolisthesis of cervical region Spinal stenosis has tried cortisone injections Osteoporosis Depression Pneumonia 2009 hospitalized 5 days Rheumatoid arthritis(714.0) ([facility]) on prednisone and methotrexate, Dr. 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 Social History Main Topics [...] Concern None Social History Narrative Lives: in [place] With: alone Grew up: in [place] Has previously lived in: [place] Exposure to toxic chemicals: no Exposure to asbestos: no Exposure to tuberculosis: no Has had a PPD or Quantiferon before: no Has pets at home: cat and a dog Has ever owned birds: yes, 5 years ago Other animal exposures: no Hobbies: used to jaja, crossword puzzles, walking her dog Allergies: No Known Allergies Medications: Outpatient Encounter Prescriptions as of 08/24/2014 Medication Sig Dispense Refill albuterol 2.5 mg/3 [...] LORazepam (ATIVAN) 1 mg tablet Take 1 tablet by mouth every 6 hours as needed (Nausea/V omiting). 20 tablet 5 Magnesium 100 MG CAPS Take by mouth Daily. methotrexate 2.5 mg tablet Take 25 mg by mouth Once a week. ondansetron (ZOFRAN) 8 MG tablet Take 1 tablet by mouth 2 times daily. For two days-Day s 2 and 3 each wk. On other days, take 8 mg every 8 hrs as needed for nausea/vomiting 30 ta blet 3 pantoprazole (PROTONIX) 40 mg tablet Take 40 mg by mouth every morning (before breakfas t). POTASSIUM GLUCONATE Take 1 tablet by mouth Daily. predniSONE (DELTASONE) 5 mg tablet Take 10 mg by mouth Daily. Respiratory Therapy Supplies [facility] ResMed S9 auto CPAP 5-9 cm H2O. Heater and Humidifier . All necessary supplies. AHI 11.6. Diagnosis Code(s)327.23, also has co morbid hypertension , history of stroke. Length of Need 99 months. Please send order to [facility]. 1 each 99 simvastatin (ZOCOR) 40 mg tablet Take 40 mg by mouth nightly. tiotropium (SPIRIVA HANDIHALER) 18 mcg inhalation capsule Inhale 1 capsule into the jeni gs Daily. 30 capsule 11 venlafaxine (EFFEXOR) 75 MG tablet Take 37.5 mg by mouth 2 times daily. No facility-administered encounter medications on file as of 08/24/2014. Review of Systems: General: []Weight loss/gain (over 10 lbs)- has lost a few pounds []Fever/chills/sweats - cold all th e time [x]Night sweats EENT: []Hearing loss []Vision loss/change []Sinus congestion/nasal drainage []Nosebleeds [x ]Hoarseness Cardiac: []Chest pain []Palpitations/heart racing []Swelling of legs/ankles [x]Waking up at night short of breath Gastrointestinal: []Nausea/vomiting []Difficulty swallowing [x]Heartburn/acid reflux- occasional []Loss of ap petite []Abdominal pain - she did have a small amount of blood in her stool, which resolved. She is due for a colonoscopy. Urologic: []Blood in urine []Frequent urination at night []Burning/painful urination []Difficulty wit h urination Objective BP 142/74 | Pulse 86 | Ht 1.575 m (5' 2") | Wt 66.951 kg (147 lb 9.6 oz) | BMI 26.99 kg /m2 | SpO2 93% RA General Appearance: Alert, cooperative, no distress, [...] prolongatio n of the expiratory phase and diffuse wheezing, no crackles or rhonchi Chest Wall: No deformity Heart: Regular rate and rhythm, no murmur, rub or gallop Abdomen: Soft, non-tender, non-distended Extremities: No cyanosis, clubbing, or edema Pulses: Radial pulses 2+ and symmetric Skin: Warm and dry Lymph nodes: Cervical and supraclavicular nodes normal Data: Chest x-ray done prior to clinic today was reviewed and interpreted in clinic today. It is unchanged from previous. Ambulating oximetry was done prior to clinic today and was reviewed and interpreted in clin ic today. It shows she desaturated to 95% with exertion. Labs: Ref. Range 08/22/2014 09:58 WBC Latest Range: 4.0-11.0 K/uL 4.6 RBC: Latest Range: 3.70-5.20 M/uL 3.73 Hgb Latest Range: 11.5-16.0 g/dL 11.4 (L) Hct, Final Latest Range: 34.0-47.0 % 35.4 MCV Latest Range: 83.0-101.0 fL 94.9 MCH Latest Range: 28.0-35.0 pg 30.5 MCHC Latest Range: 32.0-36.0 g/dL 32.1 RDW Latest Range: <15.0 % 19.3 (H) Platelet Count Latest Range: 140-440 K/uL 193 MPV No range found 7.8 Absolute Neutrophils Latest Range: 1.80-8.50 K/uL 3.70 Absolute Lymphocytes Latest Range: 0.60-3.20 K/uL 0.40 (L) Absolute Monocytes Latest Range: 0.00-1.00 K/uL 0.30 Absolute Eosinophils Latest Range: 0.00-0.40 K/uL 0.00 Absolute Basophils Latest Range: 0.00-0.10 K/uL 0.00 % Neutrophils Latest Range: 45.0-82.0 % 81.9 % Lymphocytes Latest Range: 20.0-45.0 % 8.8 (L) % Monocytes Latest Range: 4.0-12.0 % 7.4 % Eosinophils Latest Range: 0.0-5.0 % 0.9 % Basophils Latest Range: 0.0-1.0 % 1.0 NA Latest Range: 136-149 mmol/L 137 K Latest Range: 3.5-5.1 mmol/L 3.9 CL Latest Range: 98-109 mmol/L 107 CO2 Latest Range: 24-31 mmol/L 27 ANION GAP Latest Range: 3-16 mmol/L 3 GLUCOSE Latest Range: 70-109 mg/dL 96 BUN Latest Range: 7-18 mg/dL 12 BUN/CREA No range found 15.0 CREA Latest Range: 0.60-1.30 mg/dL 0.80 ALBUMIN Latest Range: 3.2-5.0 g/dL 3.1 (L) Albumin/Globulin ratio No range found 1.1 Total protein Latest Range: 6.0-7.8 g/dL 6.0 EGFR IF NOT Latest Range: >=60 mL/min/1.73m2 >60 Calcium Latest Range: 8.3-10.5 mg/dL 8.6 ALK PHOS Latest Range: 40-110 U/L 59 ALT Latest Range: 6-45 U/L 21 AST Latest Range: 10-42 U/L 25 BILIRUBIN TOTAL Latest Range: 0.1-1.5 mg/dL 0.7 GLOBULIN No range found 2.9 Davis Ivan's notes were reviewed in clinic today. Immunization History Administered Date(s) Administered PNEUMOCOCCAL POLYSACCHARIDE 23-VALENT (PPSV23) 03/01/2011 TRIVALENT INFLUENZA, PRESERATIVE FREE (PED/ADOL/ADULT) 03/22/2013, 02/15/2014 Assessment 1. Cough - Etiology is not readily apparent. She has marked wheezing on exam today. Her cou gh had improved in July, and then worsened, corresponding to chemotherapy and radiation. We will treat today with another steroid taper, intending to treat as a COPD exacerbation, but also check a chest CT to make sure we are not overlooking chemotherapy induced lung toxi city or radiation lung injury that we are missing on chest x-ray. I do not think a fungal infection is the cause, as this would typically present with a cons olidation, or nodular disease, as opposed to wheezing and dyspnea. 2. COPD (chronic obstructive pulmonary disease) - On Spiriva and Symbicort. She has not not iced much improvement, though her dyspnea may be better and cough may be worse. 3. 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 Plan 1.Prednisone 40mg taper, then resume baseline 10mg daily. 2.No oxygen needed on exertion or at rest. 3.Check chest CT scan with IV contrast. She was advised to call if new pulmonary symptoms were to develop. Return to clinic in 2 weeks, or sooner with concerns. CC: Davis Ivan MD, Adelita Lu MD Portions of this report were transcribed using voice recognition software. Every effort wa s made to ensure accuracy; however, inadvertent computerized lodge officer errors may be pre sent. documented in [...] | | | | | [place] [address] | | | | | | [phone] | | | | | | | | +--------+ + + + + | 06/08/ | Office | Physical Medicine | Rocky Santos, | | | 2019 | Visit | and Rehabilitation | [address] | | | | | | [place] | | | | | | [address] | | | | | | | | +--------+ + + + + | 06/16/ | Appointment | Pulmonology | Eveline Jaffe | | | 2019 | | | MD Nichole Carter | | | | | | [address] [place] | | | | | | [place] [address] | | | | | | [phone] | | | | | | | | +--------+ + + + + | 06/16/ | Office | Pulmonology | Eveline Jaffe | | | 2019 | Visit | | MD Nichole Carter [address] | | | | | | [address] [place] | | | | | | [place] [address] | | | | | | [phone] | | | | | | | | +--------+ + + + + | 08/24/ | Office | Cardiology | Anisha Lopez DO | | | 2019 | Visit | | [address] | | | | | | [place] | | | | | | [address] | | | | | | | [...] and XRT, known recurrent lung cancer COMPARISON: [facility] | | radiographs August 24 and July [...] + | [address] | [address] | [place], [place] | [phone] | | [facility] | | [address] | | | - IMAGING | | | | + + + + + documented in this encounter Visit Diagnoses + + | Diagnosis | + + | Cough - Primary | + + | COPD (chronic obstructive pulmonary disease) Chronic airway obstruction, not | | elsewhere classified | + + | Recurrent squamous cell carcinoma of lung, right (HCC) | + + documented in this encounter
--- OUTSIDE RECORDS SUMMARY | ~2019-05-05 | XMS | Encounter Summary ---
Demographics + + + | Address | [address] | | | [place] [address] | + + + | Home Phone [...] [address] | | | | | [address] | | + + + + + Care Team Providers + +------+ + | Care System Development Manager Name | Role | Phone | [...] Provider Unknown | | | | | [place], [place] | [phone] | | | | | [address] | (Fax) | | | | | [...] 05/30/ | Office | Rheumatology | Santosh Sunmer, | | | 2018 | Visit | | [address] | | | | | | [place] | | | | | | [place] [address] | | | | | | [phone] | | | | | | | | +--------+ + + + + | 06/08/ | Office | Physical Medicine | Rocky Santos, | | | 2019 | Visit | and Rehabilitation | MD [address] | | | | | | [place] | | | | | | [address] | | | | | | | | +--------+ + + + + | 06/16/ | Appointment | Pulmonology | Eveline Jaffe | | 2019 | | | MD [address]ole [address] | | | | | | [address] | | | | | | [place] [address] | | | | | | [phone] | | | | | | | | +--------+ + + + + | 06/16/ | Office | Pulmonology | Eveline Jaffe | | | 2019 | Visit | | MD Raul [address] | | | | | | [place] [address] | | | | | | [place] [address] | | | | | | [phone] | | | | | | | | +--------+ + + + + | 08/24/ | Office | Cardiology | Anisha Lopez DO | | | 2019 | Visit | | [address] | | | | | | [place] | | | | | | [address] | | | | | | | [...]
--- OUTSIDE RECORDS SUMMARY | ~2019-05-05 | XMS | Encounter Summary ---
Demographics + + + | Address | [address] | | | [place] [address] | + + + | Home Phone [...] [place] | | | | | [address] | | + + + + + Care Team Providers + +------+ + | Care Tariff Supervisor Name | Role | Phone | [...] | | | | | | | [address] | | | | | | | Phone: | | | | | | | [phone] | | | | | | | Fax: | | | | | | | [phone] | | +--------+ + + + + [...] | carcinoma | [address] | [address] | | | | | lung (HCC) | [place], | [place], | | | | | | [place] | [place] [address] | | | | | | [address] | Phone: | | | | | | Phone: | [phone] | | | | | | [phone] | Fax: | | | | | | Fax: | [phone] | | | | | | [phone] | | +--------+ + + + + + Encounter Details +--------+ + + + + | Date | Type | Department | Care Team | Description | +--------+ + + + + | 08/17/ Hospital | [facility] | Adelita Lu MD | Squamous cell | | 2014 | Encounter | [facility] | [address] | carcinoma lung (HCC) | | | | [facility] [address] | [place], [place] | (Primary Dx); COPD | | | | [address] [place] | [address] | (chronic obstructive | | | | [place] [address] | [phone] | pulmonary disease); | | | | [phone] | | Rheumatoid | | | | [...] other, Mirza. 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 Denies history. Denies previous radi [...] | 2018 | Visit | | [address] | | | | | | [facility] | | | | | | [place] [address] | | | | | | [phone] | | | | | | | | +--------+ + + + + | 06/08/ | Office | Physical Medicine | Rocky Santos, | | | 2019 | Visit | and Rehabilitation | MD Nichole [address] | | | | | | [place] | | | | | | [address] | | | | | | | | +--------+ + + + + | 06/16/ | Appointment | Pulmonology | Eveline Jaffe | | | 2019 | | | MD Nichole [address] | | | | | | [address] [place] | | | | | | [place] [address] | | | | | | [phone] | | | | | | | | +--------+ + + + + | 06/16/ | Office | Pulmonology | Eveline Jaffe | | | 2019 | Visit | | MD [address]ole [address] | | | | | | [address] [place] | | | | | | [place] [address] | | | | | | [phone] | | | | | | | | +--------+ + + + + | 08/24/ | Office | Cardiology | LopezAnisha kelseyDO | | | 2019 | Visit | | [address] | | | | | | [place] | | | | | | [address] | | | | | | | [...]
--- OUTSIDE RECORDS SUMMARY | ~2019-05-05 | XMS | Encounter Summary ---
Demographics + + + | Address | [address] | | | [place] [address] | + + + | Home Phone [...] [place] | | | | | [address] | | + + + + + Care Team Providers + +------+ + | Care Quill Buncher And Sorter Name | Role | Phone | + [...] + + | 04/10/ | Refill | [facility] | Santosh Sumner, | Medication Refill | | 2019 | | RHEUMATOLOGY [address] | PA-C [address] | | | | | [facility] | [facility] | | | | | [place], [place] | [place] [address] | | | | | [address] | [phone] | | | | | [phone] | | | +--------+--------+ + + + [...] | | | | | [place] [address] | | | | | | [phone] | | | | | | | | +--------+ + + + + | 06/08/ | Office | Physical Medicine | Rocky Santos, | | | 2019 | Visit | and Rehabilitation | [address] | | | | | | [place] | | | | | | [address] | | | | | | | | +--------+ + + + + | 06/16/ | Appointment | Pulmonology | Eveline Jaffe | | 2019 | | | MD [address] | | | | | | [address] [place] | | | | | | [place] [address] | | | | | | [phone] | | | | | | | | +--------+ + + + + | 06/16/ | Office | Pulmonology | Eveline Jaffe | | | 2019 | Visit | | MD Nichole Carter [address] | | | | | | [address] [place] | | | | | | [place] [address] | | | | | | [phone] | | | | | | | | +--------+ + + + + | 08/24/ | Office | Cardiology | Anisha Lopez DO | | | 2019 | Visit | | [address] | | | | | | [place] | | | | | | [address] | | | | | | | | +--------+ + + + + documented as of this encounter Visit Diagnoses Not on filedocumented in this encounter"
--- OUTSIDE RECORDS SUMMARY | ~2019-05-05 | XMS | Clinical Summary ---
Demographics + + + | Address | [address] | | | [place] [address] | + + + | Home Phone | | + + + | Preferred Language | Unknown | + + + | Marital Status | | + + + | Orthodoxy Affiliation | Unknown | + + + | Race | Unknown | + + + | Ethnic Group | Unknown | + + + Author + + + | Author | [facility] (Historical as of | | | 01-15-19) | + + + | Organization | [facility] (Historical as of | | | 01-15-19) | + + + | Address | Unknown | + + + | Phone | Unavailable | + + + Support + + +---------+ + | Name | Relationship | Address | Phone | + + +---------+ + | Mirza Bee | ECON | Unknown | | + + +---------+ + Care Team Providers + +------+ + | Care Automotive Consultant Name | Role | Phone | [...] | 04/01 | | Activ | | (SYNTHROID) 112 MCG | mouth daily. | | | 02/18 | | e | | tablet | | | | 12 | [...] | e | + + +--------+---------+------+------+-------+ | Melatonin 2.5 [...] tablets by | 32 | 2 | 02/ | | Activ | | MG | mouth once a week. | tablet | | 02/18 | | e | | tabletIndications: | | | | 19 | | | | Rheumatoid Arthritis | | | | | | | + + +--------+---------+------+------+-------+ | loperamide | Take 2 mg by mouth. | | | 01/2 | | Activ | | (IMODIUM) 2 MG | | | | 2/20 | | e | | capsule | | | | 19 | | | + + +--------+---------+------+------+-------+ | roflumilast | Take 500 mcg by | | | | | Activ | | (DALIRESP) 500 MCG | mouth daily. | | | | | e | | tablet | | | | | | | + + +--------+---------+------+------+-------+ | | Apply to eye. | | | | | Activ | | Carboxymethylcellulo | | | | | | e | | se Sodium (REFRESH | | | | | | | | TEARS OP) | | | | | | | + + +--------+---------+------+------+-------+ | DULoxetine | Take 60 mg by mouth | | | | | Activ | | (CYMBALTA) [address] | daily. | | | | | e | | capsule | | | | | | | + + +--------+---------+------+------+-------+ | DULoxetine | Take 30 mg by mouth | | | | | Activ | | (CYMBALTA) 30 MG | daily. | | | | | e | | capsule | | | | | | | + + +--------+---------+------+------+-------+ | Turmeric 500 MG | Take by mouth. | | | | | Activ | | CAPS | | | | | | e | + + +--------+---------+------+------+-------+ | folic acid | Take 1 mg by mouth | | | | | Activ | | (FOLVITE) 1 MG | daily. | | | | | e | | tablet | | | | | | | + + +--------+---------+------+------+-------+ | potassium chloride | Take 20 mEq by mouth | | | | | Activ | | SA (LUZ MARIA NULL) | 2 (two) times daily | | | | | e | | 20 MEQ tablet | with meals. | | | | | | + + +--------+---------+------+------+-------+ | warfarin | Take 5 mg by mouth | | | | | Activ | | (COUMADIN) 5 MG | daily. | | | | | e | | tablet | | | | | | | + + +--------+---------+------+------+-------+ | pseudoephedrine | Take 60 mg by mouth | | | | | Activ | | (SUDAFED) 60 MG | every 4 (four) hours | | | | | e | | tablet | as needed for | | | | | | | | Congestion. | | | | | | + + +--------+---------+------+------+-------+ | doxycycline | Take 100 mg by mouth | | | | | Activ | | (VIBRA-TABS) 100 MG | 2 (two) times | | | | | e | | tablet | daily. | | | | | | + + +--------+---------+------+------+-------+ | erythromycin | Place 5 mg into both | | | | | Activ | | (ROMYCIN) ophthalmic | eyes 4 (four) times | | | | | e | | ointment | daily. Thin ribbon | | | | | | | | to affected eye four | | | | | | | | times daily for 7 | | | | | | | | days | | | | | | + + +--------+---------+------+------+-------+ | metoprolol | Take 1 tablet by | 90 | 3 | 07/2 | 07/2 | Activ | | (TOPROL-XL) 25 MG 24 | mouth daily. | tablet | | 07/21 | 06/20 | e | | hr tablet | | | | 19 | 20 | | + + +--------+---------+------+------+-------+ Active Problems + + + | Problem | Noted Date | + + + | Paroxysmal atrial fibrillation (HCC) | 12/19/2018 | + + + | CVA (cerebral vascular accident) ([facility]) | 12/14/2018 | + + + | Impingement syndrome of left shoulder | 11/01/2018 | + + + | High risk medication use | 10/28/2018 | + + + + + | Last Assessment & Plan: The patient was counseled regarding | | medication compliance and routine laboratory monitoring due to | | the potential toxicities with rheumatological medications such as | | but not limited to; hematologic toxicity, hepatotoxicity, renal | | dysfunction and increased risks for infections.Basic Labs | | Monitored (CBC, CMP, ESR and CRP): Ordered today during clinic | | visitThese labs are routinely ordered due to high risk medication | | the patient is currently taking - Monitored for cytopenias, | | liver toxicity, renal dysfunction and disease activity. Hepatitis | | Panel: Negative - 07/2018This will be checked every 5 years based | | on the patients risk factors or at time of biologic drug change. | | Chest XR: Satisfactory - 2019 This will be checked within 1 year | | of initiation of rheumatological therapy.There is evidence of | | COPD | + + + + + | Pulmonary embolism (HCC) [...] squamous cell RIGHT lung cancer.1.Initially seen by DrJanet | | barber in March 2013 for a pulmonary nodule, right lower | | lobe measuring 1.9 cm, biopsy was considered risky . Nodule was | | considered likely infectious/inflammatory as the patient was | | immunosuppressed , on methotrexate for rheumatoid arthritis. 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 And lewis | | 2.CT-guided biopsy by interventional radiology at [facility] of the | | right lung [...] Beltran , thoracic surgeon at | | [facility] for consideration of bronchoscopy, right | [...] in August 20149. | | Admitted to [facility] on September 27, 2014 for | | right-sided chest pain secondary to acute bronchitis.10. CT chest | | [facility] on September 28, 2014 demonstrated persistent | [...] that Thea | | was admitted to [facility] in [place], [place] for | | acute exacerbation of chronic bronchitis. During her | | hospitalization there, a chest CT was performed demonstrating a | | persistent 32 x 26 mm right hilar mass. These images were | | reviewed subsequently at the [facility] on their PACS | | system. Radiographic abnormality in the right hilum may represent | | persistent tumor or simply residual, non viable tissue following | | combined modality therapy.Since therapeutic effect of | | irradiation may be delayed, I recommended waiting an additional | | month before proceeding with repeat PET scan to assess for | | persistent disease. PET/CT schedule at [facility] on December 21, 2014 | | with follow up at [facility] the following week. | + [...] + + + + | Overview: Overview: ICD-10 Record update Last Assessment & | | Plan: The patient returns to the clinic for a follow up | | appointment. She is on 15mg Methotrexate weekly with 1mg Folic | | Acid daily and doing well. She was on 4 tabs per the patient and | | since increasing to the 6 tabs she has noticed a significant | | improvement. She states otherwise her joint pain and stiffness | | are significant better. We will make no changes and see her back | | in 3 months and update blood work. Discussed risks and benefits | | of this medication. Patient understands he/she will also be | | taking folic acid 1 mg daily. I explained that methotrexate can | | cause mouth sores, hair loss, and fatigue and to call if there | | was trouble tolerating it. Patient was advised that methotrexate | | can cause bone marrow toxicity and that blood would need to be | | checked 4 weeks after starting the medication. Liver toxicity is | | also possible so blood would need to be monitored at least every | | 3 months for as long as the medicine was taken. Discussed that | | this a category D medication for women and may produce | | reversible infertility in men. | + + + + + | [...] | | radicular pain. | + + Immunizations + + + + | Name [...] + | Blood Pressure | 124/68 | 12/16/2018 11:28 AM PDT | + + + + | Pulse | 89 | 12/16/2018 11:28 AM PDT | + + + + | Temperature | 36.3 C (97.3 F) | 10/28/2018 12:49 PM PDT | + + + + | Respiratory Rate | 17 | 07/17/2015 2:20 PM PST | + + + + | Oxygen Saturation | 92% | 12/16/2018 11:28 AM PDT | + + + + | Inhaled Oxygen | - | - | | Concentration | | | + + + + | Weight | 69.9 kg (154 lb) | 12/16/2018 11:28 AM PDT | + + + + | Height | 157.5 cm (5' 2") | 12/16/2018 11:28 AM PDT | + + + + | Body Mass Index | 28.17 | 12/16/2018 11:28 AM PDT | + + + + Plan [...] + + | Vaccine: Influenza | | 02/24/2018, 04/10/2017, | | | (#1) | 9 | 2016, Additional history | | | [...] | N/A: | | | 08/20/ | [id number] | | Dbx 2.5ml - | | Spine | | | 2015 | | | [id number]: | | Cervic | | | | /09807 | | Qty: 1 on 01/19/2013 by | | joann | | | | [id number] | | Silviano Cabrera MD | | | | | | [id number] | | | | | | | | 8 / | + +------+--------+ +--------+--------+--------+ | Cage Triad Allograft | | N/A: | | | 08/16/ | [id number] | | [id number] - | | Spine | | | 2018 | 7 | | [id number]: Qty: 1 | | Cervic | | | | /[id number] | | on 01/19/2013 by Rick, | Tim david | | | | 8-185 | | MD Silviano | | | | | | / | + +------+--------+ +--------+--------+--------+ | Cage Triad Allograft 6mm - | | N/A: | | | 06/23/ | [id number] | | [id number]: Qty: 1 | | Spine | | | 2018 | 6 | | on 01/19/2013 by Rick, | | Cervic | | | | /28959 | | MD Silviano | | al | | | | 0-206 | | | | | | | | / | + +------+--------+ +--------+--------+--------+ | Screw Vectra Self Drilling | | N/A: | | | | 04.613 | | Variable Angle 4.0x14mm - | | Spine | | | | .514 | | [id number]: Qty: 2 on | | Cervic | | | | /16485 | | 01/19/2013 by Silviano Cabrera, | | al | | | | 514 / | | MD | | | | | | | + +------+--------+ +--------+--------+--------+ | Screw Vectra Self Drilling | | N/A: | | | | 04.613 | | Variable Angle [id number] - | | Spine | | | | .516 | | [id number]: Qty: 2 on | | Cervic | | | | /08435 | | 01/19/2013 by Silviano Cabrera, | | al | | | | 516 / | | MD | | | | | | | + +------+--------+ +--------+--------+--------+ | Screw Vectra Self Drilling | | N/A: | | | | 04.613 | | Fixed Angle 4.0x14mm - | | Spine | | | | .714 | | [id number]: Qty: 2 on | | Cervic | | | | /06862 | | 01/19/2013 by Silviano Cabrera, | | al | | | | 714 / | | MD | | | | | | | + +------+--------+ +--------+--------+--------+ | Plate Vectra Cervical 30mm - | | N/A: | | | | 04.613 | | [id number]: Qty: 1 on | | Spine | | | | .130 | | 01/19/2013 by Silviano Cabrera, | | Cervic | | | | /06928 | | MD | | al | | | | 130 / | + +------+--------+ +--------+--------+--------+ | Allograft Putty Freeze Dried | | N/A: | | | 10/20/ | [id number] | | Dbx 2.5ml - | | Spine | | | 2014 | | | [id number]: | | Cervic | | | | /61992 | | Qty: 1 on 04/06/2013 by | | al | | | | [id number] | | Silviano Cabrera MD | | | | | | 963209 | | | | | | | | 3 / | + +------+--------+ +--------+--------+--------+ | Screw Vuepoint Post Cerv | | N/A: | | | | 586823 | | 3.5x12mm - [id number]: | | Spine | | | | 2 | | Qty: 3 on 04/06/2013 by | | Altagraciaic | | | | /00714 | | Silviano Cabrera MD | | al | | | | 12 / | + +------+--------+ +--------+--------+--------+ | Screw Vuepoint Post Cerv | | N/A: | | | | [id number] | | 3.5x14mm - [id number]: | | Spine | | | | 4 | | Qty: 1 on 04/06/2013 by | | Cervic | | | | /92057 | | Silviano Cabrera MD | | al | | | | 14 / | + +------+--------+ +--------+--------+--------+ | Srini Vuepoint 3.5x60mm - | | N/A: | | | | 370984 | | [id number]: Qty: 1 on | | Spine | | | | 0 | | 04/06/2013 by Silviano Cabrera, | | Cervic | | | | /41011 | | MD | | al | | | | 60 / | + +------+--------+ +--------+--------+--------+ | Screw Vuepoint Post Cerv Set | | N/A: | | | | 345252 | | Tulip & Hook - | | Spine | | | | 0 | | [id number]: Qty: 4 on | | Cervic | | | | /50277 | | 04/06/2013 by Silviano Caberra, | | al | | | | 00 / | | MD | | | | | | | + +------+--------+ +--------+--------+--------+ | Allograft Osteocell 10cc | | | | | 08/25/ | [id number] | | [id number] - | | | | | 2018 | 0 | | [id number]: Qty: 1 | | | | | | /09198 | | on 04/06/2013 | | | | | | 1542 / | + +------+--------+ +--------+--------+--------+ | Allograft Putty Freeze Dried | | N/A: | | | 11/10/ | [id number] | | Demineralized Bone Matrix Dbx | | Spine | | | 2014 | | | 1ml - | | Cervic | | | | /80938 | | [id number]: | | al | | | | [id number] | | Qty: 1 on 04/06/2013 by | | | | | | 277810 | | Silviano Cabrera MD | | | | | | 1 / | + +------+--------+ +--------+--------+--------+ | Graft Sponge Kit Bone Infuse | | | MEDTRONIC | | | 304847 | | Medium 56ml - | | | | | | 0 / | | [id number]: Qty: 1 on | | | | | | /M1112 | | 03/29/2014 by Silviano Cabrera, | | | | | | 05AA6 | | MD | | | | | | | + +------+--------+ +--------+--------+--------+ | Triad Alif Allograft | | | NUVASIVE | | 08/02/ | 554942 | | [id number]: Qty: 1 on | | | | | 2018 | 4 | | 03/29/2014 by Silviano Cabrera, | | | | | | /08887 | | MD | | | | | | 0-065 | | | | | | | | / | + +------+--------+ +--------+--------+--------+ | Screw Brigade 5.5x25mm - | | | NUVASIVE | | | [id number] | | [id number]: Qty: 2 on | | | | | | / / | | 03/29/2014 by Silviano Cabrera, | | | | | | | | MD | | | | | | | + +------+--------+ +--------+--------+--------+ | Screw Brigade 5.5x30mm - | | | NUVASIVE | | | [id number] | | [id number]: Qty: 4 on | | | | | | 0 / / | | 03/29/2014 by Silviano Cabrera, | | | | | | | | MD | | | | | | | + +------+--------+ +--------+--------+--------+ | Evelyne Batista Allograft | | | NUVASIVE | | 07/14/ | 398798 | | [id number] - | | | | | 2012 | 2 / / | | [id number]: Qty: 1 on | | | | | | | | 03/29/2014 by Silviano Cabrera, | | | | | | | | MD | | | | | | | + +------+--------+ +--------+--------+--------+ | Svetlana Iraheta 5.5x35mm - | | | NUVASIVE | | | 696476 | | [id number]: Qty: 2 on | | | | | | 5 / / | | 03/29/2014 by Silviano Cabrera, | | | | | | | | MD | | | | | | | + +------+--------+ +--------+--------+--------+ | Allograft Block Extra Large | | N/A: | NUVASIVE | | 09/27/ | [id number] | | Formagraft Large - | | Back | | | 2018 | 5 / | | [id number]: Qty: 1 on | | | | | | /FG-14 | | 03/29/2014 by Silviano Cabrera, | | | | | | 13 | | MD | | | | | | | + +------+--------+ +--------+--------+--------+ | Graft Sponge Kit Bone Infuse | | N/A: | MEDTRONIC | | 08/27/ | [id number] | | Large 8ml - | | Back | | | 2015 | 0 / | | [id number]: Qty: 1 on | | | | | | /M1112 | | 03/29/2014 by Silviano Cabrera, | | | | | | 06AAY | | | | | | | | | + +------+--------+ +--------+--------+--------+ | Allograft Freeze Dried | | N/A: | LIFENET | | 11/13/ | [id number] | | Demineralized Cancellous Mix | | Spine | HEALTH | | 2016 | T | | Ic Graft Chamber 15cc - | | Lumbar | | | | /52831 | | [id number]: Qty: | | | | | | 57-303 | | 1 on 03/31/2014 by Rick, | | | | | | 1 / | | MD Silviano | | | | | | | + +------+--------+ +--------+--------+--------+ | Graft Sponge Kit Bone Infuse | | N/A: | MEDTRONIC | | 04/01/ | [id number] | | Medium 56ml - | | Spine | | | 2014 | 0 | | [id number]: Qty: 1 | | Lumbar | | | | /[id number] | | on 03/31/2014 by Rick, | | | | | | 05AAW | | MD Silviano | | | | | | / | + +------+--------+ +--------+--------+--------+ | Allograft Freeze Dried | | N/A: | LIFENET | | 11/01/ | [id number] | | Demineralized Cancellous Mix | | Spine | HEALTH | | 2016 | T | | Ic Graft Chamber 15cc - | | Lumbar | | | | /37976 | | [id number]: Qty: | | | | | | 37-301 | | 1 on 03/31/2014 by Rick, | | | | | | 1 / | | MD Silviano | | | | | | | + +------+--------+ +--------+--------+--------+ | Screw Precept Shank Mod | | N/A: | NUVASIVE | | | [id number] | | 7.5x50mm - [id number]: | | Spine | | | | 0 / / | | Qty: 4 on 03/31/2014 by | | Lumbar | | | | | | Silviano Cabrera MD | | | | | | | + +------+--------+ +--------+--------+--------+ | Screw Precept Shank Mod | | N/A: | NUVASIVE | | | [id number] | | 6.5x50mm - [id number]: | | Spine | | | | 0 / / | | Qty: 2 on 03/31/2014 by | | Lumbar | | | | | | Silviano Cabrera MD | | | | | | | + +------+--------+ +--------+--------+--------+ | Screw Locking For 6.25mm Srini | | N/A: | NUVASIVE | | | [id number] | | - [id number]: Qty: 6 | | Spine | | | | 1 / / | | on 03/31/2014 by Rick, | | Lumbar | | | | | | MD Silviano | | | | | | | + +------+--------+ +--------+--------+--------+ | Screw Tulip For 6.25mm Srini - | | N/A: | NUVASIVE | | | [id number] | | [id number]: Qty: 6 on | | Spine | | | | 2 / / | | 03/31/2014 by Silviano Cabrera, | | Lumbar | | | | | | | | | | | | | + +------+--------+ +--------+--------+--------+ | Allograft Freeze Dried | | N/A: | LIFENET | | 11/08/ | [id number] | | Demineralized Cancellous Mix | | Spine | HEALTH | | 2017 | T | | Ic Graft Chamber 15cc - | | Lumbar | | | | /[id number] | | [id number]: Qty: | | | | | | 98-303 | | 1 on 03/31/2014 by Rick, | | | | | | 9 / | | MD Silviano | | | | | | | + +------+--------+ +--------+--------+--------+ | Allograft Freeze Dried | | N/A: | LIFENET | | 08/16/ | [id number] | | Demineralized Cancellous Mix | | Spine | HEALTH | | 2016 | T | | Ic Graft Chamber 10cc - | | Lumbar | | | | /29996 | | [id number]: Qty: | | | | | | 22-301 | | 1 on 03/31/2014 by Rick, | | | | | | 3 / | | MD Silviano | | | | | | | + +------+--------+ +--------+--------+--------+ | Allograft Freeze Dried | | N/A: | LIFENET | | 07/13/ | [id number] | | Demineralized Cancellous Mix | | Spine | HEALTH | | 2016 | T | | Ic Graft Chamber 5cc - | | Lumbar | | | | /[id number] | | [id number]: Qty: | | | | | | 40-301 | | 1 on 03/31/2014 by Rick, | | | | | | 1 / | | MD Silviano | | | | | | | + +------+--------+ +--------+--------+--------+ | Srini Spherx Dual Ball Ti Dbr | | N/A: | NUVASIVE | | | [id number] | | Ii 42.5mm - | | Spine | | | | / | | [id number]: Qty: 2 on | | Lumbar | [...] [place] - [place] | [place] - | [id number] | Medica | | | | | [...] +--------+-------+ + | MEDICAID | EASTER | [id number] | | | [address] | | | N | | | | [place] | | | [place] | | | | [address] | | | ORIGINATION SPECIALIST | | | | | + +--------+ [...] | Home: | [address] | | | al/Fam | | [phone] | [phone] [place] | | | jana | | | [phone] | [phone] | + +--------+ +--------+ + +
--- OUTSIDE RECORDS SUMMARY | ~2019-05-05 | XMS | Encounter Summary ---
Demographics + + + | Address | [address] | | | [place] [address] | + + + | Home Phone [...] [place] | | | | | [address] | | + + + + + Care Team Providers + +------+ + | Care Press Service Reader Name | Role | Phone | + [...] + + | 04/10/ | Refill | [facility] | Santosh Sumner, | Medication Refill | | 2019 | | RHEUMATOLOGY [address] | PA-C [address] | | | | | [facility] | [facility] | | | | | [place], [place] | [place] [address] | | | | | [address] | [phone] | | | | | [phone] | | | +--------+--------+ + + + [...] | | | | | [place] [address] | | | | | | [phone] | | | | | | | | +--------+ + + + + | 06/08/ | Office | Physical Medicine | Rocky Santos, | | | 2019 | Visit | and Rehabilitation | [address] | | | | | | [place] | | | | | | [address] | | | | | | | | +--------+ + + + + | 06/16/ | Appointment | Pulmonology | Eveline Jaffe | | 2019 | | | MD Nichole [address] | | | | | | [address] [place] | | | | | | [place] [address] | | | | | | [phone] | | | | | | | | +--------+ + + + + | 06/16/ | Office | Pulmonology | Eveline Jaffe | | | 2019 | Visit | | MD [address]ole [address] | | | | | | [address] | | | | | | [place] [address] | | | | | | [phone] | | | | | | | | +--------+ + + + + | 08/24/ | Office | Cardiology | Anisha Lopez DO | | | 2019 | Visit | | [address] | | | | | | [place] | | | | | | [address] | | | | | | | | +--------+ + + + + documented as of this encounter Visit Diagnoses Not on filedocumented in this encounter"
--- OUTSIDE RECORDS SUMMARY | ~2019-05-05 | XMS | Encounter Summary ---
Demographics + + + | Address | [address] | | | [place] [address] | + + + | Home Phone [...] [place] | | | | | [address] | | + + + + + Care Team Providers + +------+ + | Care Vortex Operator Name | Role | Phone | [...] + + | 09/08/ | Office | [facility] | Alfredenstein, | MARCE (obstructive | | 2013 | Visit | PULMONARY [address] | Ayana Looney MD | sleep apnea) | | | | [place], | | (Primary Dx); COPD | | | | [place] [address] | | (chronic obstructive | | | | [phone] | | pulmonary disease) | +--------+---------+ + [...] CPAP machine yesterday. She had called the [employer], and mio forrester told her they would [...] 2009 hospitalized 5 days Rheumatoid arthritis(714.0) ([facility]) on prednisone and methotrexate, Dr. Lewis, [place] Hyperlipidemia on simvastatin Hypertension on clonidine and lisinopril Hypothyroidism GERD (gastroesophageal reflux disease) Stroke ([facility]) 2006 Stroke ([facility]) 2008 Squamous cell carcinoma of lung ([facility]) 07/2013 MARCE (obstructive sleep apnea) AHI [...] mg by mouth Daily. Respiratory Therapy Supplies [facility] ResMed S9 auto [...] too tightly. She will work with the [employer] to adjust this or get a new [...] CENTER | | | | | | [place] [address] | | | | | | [phone] | | | | | | | | +--------+ + + + + | 06/08/ | Office | Physical Medicine | Rocky Santos, | | 2019 | Visit | and Rehabilitation | [address] | | | | | | [place] | | | | | | [address] | | | | | | | | +--------+ + + + + | 06/16/ | Appointment | Pulmonology | Eveline Jaffe | | | 2019 | | | MD Nichole Carter | | | | | | [address] | | | | | | [place] [address] | | | | | | [phone] | | | | | | | | +--------+ + + + + | 06/16/ | Office | Pulmonology | Eveline Jaffe | | | 2019 | Visit | | MD [address]ole [address] | | | | | | [address] | | | | | | [place] [address] | | | | | | [phone] | | | | | | | | +--------+ + + + + | 08/24/ | Office | Cardiology | Anisha Lopez DO | | | 2019 | Visit | | [address] | | | | | | [place] | | | | | | [address] | | | | | | | [...]
--- OUTSIDE RECORDS SUMMARY | ~2019-05-05 | XMS | Encounter Summary ---
Demographics + + + | Address | [address] | | | [place] [address] | + + + | Home Phone [...] [place] | | | | | [address] | | + + + + + Care Team Providers + +------+ + | Care Manager Technical Support Name | Role | Phone | + [...] Closed | | Radiology | Diagnoses | Ang, | | | | | | Spinal | RITA Drake | | | | | | stenosis in | [address] | | | | | | cervical | [address] | | | | | | region | [address] | | | | | | Procedures | [place] [address] | | | | | | CT Cervical | [address] | | | | | | Spine wo | Phone: | | | | | | Contrast | [phone] | | | | | | | Fax: | | | | | | | [phone] | | +--------+--------+ + + + + Reason for Visit Diagnostic/Screening (Routine) +--------+--------+ + + + + | Status | Reason | Specialty | Diagnoses / | Referred By | Referred To | | | | | Procedures | Contact | Contact | +--------+--------+ + + + + | Closed | | Radiology | Diagnoses | Ang, | | | | | | Spinal | RITA Drake | | | | | | stenosis in | [address] | | | | | | cervical | [place] | | | | | | region | [address] | | | | | | Procedures | [address] [address] | | | | | | CT Cervical | [address] | | | | | | Spine wo | Phone: | | | | | | Contrast | [phone] | | | | | | | Fax: | | | | | | | [phone] | | +--------+--------+ + + + + Encounter Details +--------+ + + + + | Date | Type | Department | Care Team | Description | +--------+ + + + + | 06/16/ | Hospital | [facility] | Vidal Dalton ARNP | Spinal stenosis in | | 2015 | Encounter | MED [facility] [address] | [address] | cervical region | | | | [place], | [address] [place], | | | | | [place] [address] | [place] [address] | | | | | [phone] | [phone] | | | | | | | [...] 0 | | | | HYDROcodone-acetamin | mouth every 4 hours | | | | 5 | | ophen (NORCO) 5-325 | as needed. | | | | [...] | | | | | | [place] [address] | | | | | | [phone] | | | | | | | | +--------+ + + + + | 06/08/ | Office | Physical Medicine | Rocky Santos, | | | 2019 | Visit | and Rehabilitation | MD Nichole Landis | | | | | | [place] | | | | | | [id number] | | | | | | | | +--------+ + + + + | 06/16/ | Appointment | Pulmonology | Eveline Jaffe | | 2019 | | | MD Nichole Carter | | | | | | [address] | | | | | | [place] [address] | | | | | | [phone] | | | | | | | | +--------+ + + + + | 06/16/ | Office | Pulmonology | Eveline Jaffe | | | 2019 | Visit | | MD Raul [address] | | | | | | [place] [address] | | | | | | [place] [address] | | | | | | [phone] | | | | | | | | +--------+ + + + + | 08/24/ | Office | Cardiology | Anisha Lopez DO | | | 2019 | Visit | | [address] | | | | | | [place] | | | | | | [address] | | | | | | | | +--------+ + + + + documented as of this encounter Procedures + +--------+ + + + | Procedure Name | Priori | Date/Time | Associated Diagnosis | Comments | | | ty | | | | + +--------+ + + + | CT CERVICAL SPINE WO | Routin | 06/16/2014 | Spinal stenosis in | Results for this | | CONTRAST | e | 1:06 PM | cervical region | procedure are in the | | | | PST | | results section. | + +--------+ + + + documented in this encounter Results CT Cervical Spine wo Contrast (06/16/2014 1:06 PM PST) + + | Specimen | + + | | + + + + + | Narrative | Performed At | + + + | UNENHANCED CT CERVICAL SPINE 06/16/2014 12:43 PM CLINICAL | [facility] | | HISTORY: Spinal stenosis in cervical region COMPARISON: | LAB | | PET/CT July 2013, cervical radiographs June 2013 TECHNIQUE: | | | Axial unenhanced images are performed through the cervical spine, | | | along with coronal and sagittal reformations. FINDINGS: | | | Generalized leftward cervical curvature and reversal of the cervical | | | lordosis centered at C6 level persist. Anterior plate and screw | | | and interbody fusion hardware persist at C4-5 and C5-6 and appear | | | intact and satisfactory in position. Left-sided posterior lara and | | | screw fixation hardware persists at C4-5 and right-sided lara and | | | screw fixation hardware persists at C5-6, appearing intact. Osseous | | | fusion of the facet joints at these levels is suggested. Cervical | | | vertebral height is maintained, without evidence of fracture. | | | Craniocervical alignment is maintained. Moderate to severe | | | degeneration of the anterior C1-2 articulation is noted. | | | Asymmetric left facet hypertrophy is present at C2-3, without | | | stenosis. Asymmetric right neural foraminal stenosis is present at | | | C3-4, mildly narrowing the right neural foramen. 4 mm | | | anterolisthesis and facet hypertrophy are present at the operated C4-5 | | | level, with uncovertebral and facet hypertrophy causing moderate, | | | asymmetric right neural foraminal stenosis. No bony central canal | | | stenosis is evident, allowing for artifact arising from the fusion | | | hardware. 3 mm anterolisthesis and facet hypertrophy are present | | | at the operated C5-6 level. Uncovertebral and facet hypertrophy | | | combine to moderately narrow the right neural foramen and mildly | | | narrow the left neural foramen. No central canal stenosis is | | | appreciated, allowing for artifact arising from the fusion hardware. | | | Moderate to severe disc space narrowing and a mild, generalized | | | disc osteophyte complex are present at C6-7, combining with facet | | | hypertrophy to mild to moderately narrow the neural foramina. No | | | central canal stenosis is appreciated. The C7-T1 level is | | | unremarkable. Mild anterolisthesis is present at T1-2 and T2-3, | | | combining with facet hypertrophy to mild to moderately narrow the | | | left greater than right neural foramina. Early calcified plaque | | | formation is visible in the carotid bulbs. Subpleural blebs and | | | probable changes of centrilobular emphysema are visible in the | | | minimally imaged lung apices. Imaged soft tissue structures are | | | otherwise unremarkable. IMPRESSION - 1. SIMILAR, INTACT | | | APPEARANCE OF ANTERIOR AND POSTERIOR FUSION HARDWARE AT C4-5 AND C5-6 | | | WITH PERSISTENT ANTEROLISTHESIS AT THESE LEVELS, SIMILAR TO PREVIOUS | | | RADIOGRAPHS FROM JUNE 2013. 2. VARIABLE, MILD TO MODERATE | | | NEUROFORAMINAL STENOSIS DESCRIBED. 3. EMPHYSEMA. Dictated | | | and Signed by: Herminio Levi MD Electronically signed: 06/16/2014 | | | 5:13 PM | | + + + + + | Procedure Note | + + | Fabián, Rad Results In - 06/16/2014 5:16 PM PST UN[address]ANCED CT CERVICAL SPINE 06/16/2014 | | 12:43 PM CLINICAL HISTORY: Spinal stenosis in cervical region COMPARISON: PET/CT | | July 2013, cervical radiographs June 2013 TECHNIQUE: Axial unenhanced images are | | performed through the cervical spine,along with coronal and sagittal reformations. | | FINDINGS: Generalized leftward cervical curvature and reversal of the cervicallordosis | | centered at C6 level persist. Anterior plate and screw and interbodyfusion hardware | | persist at C4-5 and C5-6 and appear intact and satisfactory inposition. Left-sided | | posterior lara and screw fixation hardware persists at C4-5and right-sided lara and screw | | fixation hardware persists at C5-6, appearingintact. Osseous fusion of the facet joints | | at these levels is suggested. Cervical vertebral height is maintained, without evidence | | of fracture.Craniocervical alignment is maintained. Moderate to severe degeneration of | | theanterior C1-2 articulation is noted.Asymmetric left facet hypertrophy is present at | | C2-3, without stenosis.Asymmetric right neural foraminal stenosis is present at C3-4, | | mildly narrowingthe right neural foramen.4 mm anterolisthesis and facet hypertrophy are | | present at the operated C4-5level, with uncovertebral and facet hypertrophy causing | | moderate, asymmetricright neural foraminal stenosis. No bony central canal stenosis is | | evident,allowing for artifact arising from the fusion hardware.3 mm anterolisthesis and | | facet hypertrophy are present at the operated C5-6level. Uncovertebral and facet | | hypertrophy combine to moderately narrow theright neural foramen and mildly narrow the | | left neural foramen. No centralcanal stenosis is appreciated, allowing for artifact | | arising from the fusionhardware.Moderate to severe disc space narrowing and a mild, | | generalized disc osteophytecomplex are present at C6-7, combining with facet hypertrophy | | to mild tomoderately narrow the neural foramina. No central canal stenosis | | isappreciated.The C7-T1 level is unremarkable.Mild anterolisthesis is present at T1-2 | | and T2-3, combining with facethypertrophy to mild to moderately narrow the left greater | | than right neuralforamina.Early calcified plaque formation is visible in the carotid | | bulbs. Subpleuralblebs and probable changes of centrilobular emphysema are visible in | | theminimally imaged lung apices. Imaged soft tissue structures are | | otherwiseunremarkable. IMPRESSION - 1. SIMILAR, INTACT APPEARANCE OF ANTERIOR AND | | POSTERIOR FUSION HARDWARE AT C4-5AND C5-6 WITH PERSISTENT ANTEROLISTHESIS AT THESE | | LEVELS, SIMILAR TO PREVIOUSRADIOGRAPHS FROM JUNE 2013.2. VARIABLE, MILD TO MODERATE | | NEUROFORAMINAL STENOSIS DESCRIBED.3. EMPHYSEMA.Dictated and Signed by: Herminio Levi, | | Electronically signed: 06/16/2014 5:13 PM | |canal stenosis is appreciated, allowing for artifact arising from the fusion | |hardware. | | | |Moderate to severe disc space narrowing and a mild, generalized disc osteophyte | |complex are present at C6-7, combining with facet hypertrophy to mild to | |moderately narrow the neural foramina. No central canal stenosis is | |appreciated. | | | |The C7-T1 level is unremarkable. | | | |Mild anterolisthesis is present at T1-2 and T2-3, combining with facet | |hypertrophy to mild to moderately narrow the left greater than right neural | |foramina. | | | |Early calcified plaque formation is visible in the carotid bulbs. Subpleural | |blebs and probable changes of centrilobular emphysema are visible in the | |minimally imaged lung apices. Imaged soft tissue structures are otherwise | |unremarkable. | | | |IMPRESSION - | |1. SIMILAR, INTACT APPEARANCE OF ANTERIOR AND POSTERIOR FUSION HARDWARE AT C4-5 | |AND C5-6 WITH PERSISTENT ANTEROLISTHESIS AT THESE LEVELS, SIMILAR TO PREVIOUS | |RADIOGRAPHS FROM JUNE 2013. | | | |2. VARIABLE, MILD TO MODERATE NEUROFORAMINAL STENOSIS DESCRIBED. | | | |3. EMPHYSEMA. | | | |Dictated and Signed by: Herminio Levi MD | | Electronically signed: 06/16/2014 5:13 PM | + + + +---------+ + + | Performing | Address | City/State/Zipcode | Phone Number | | Organization | | | | + +---------+ + + | [facility] | | | [phone] | + +---------+ + + | [facility] | | | [phone] | + +---------+ + + documented in this encounter Visit Diagnoses + + | Diagnosis | + + | Spinal stenosis in cervical region | + + documented in this encounter"
--- OUTSIDE RECORDS SUMMARY | ~2019-05-05 | XMS | Encounter Summary ---
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 Gramajo MD [address] | cell carcinoma of | | | | INFUSION [address] [place] | lung, unspecified | | | | [place], | [place] [address] | laterality (HCC) | | | | [place] [address] | [phone] | | | | | [phone] | | | +--------+ + + + [...] 2 | 08/22/19 | | | (INOCENCIO PERLSHAVON) | mouth 3 times daily | [...] | | | | | [place] [address] | | | | | | [phone] | | | | | | | | +--------+ + + + + | 06/08/ | Office | Physical Medicine | Rocky Santos, | | | 2019 | Visit | and Rehabilitation | [address] | | | | | | [place] | | | | | | [address] | | | | | | | | +--------+ + + + + | 06/16/ | Appointment | Pulmonology | Eveline Jaffe | | | 2019 | | | MD Nichole Carter | | | | | | [address] [place] | | | | | | [place], [place] [address] | | | | | | [phone] | | | | | | | | +--------+ + + + + | 06/16/ | Office | Pulmonology | Eveline Jaffe | | | 2019 | Visit | | MD Nichole Carter [address] | | | | | | [address] [place] | | | | | | [place] [address] | | | | | | [phone] | | | | | | | | +--------+ + + + + | 08/24/ | Office | Cardiology | Anisha Lopez DO | | | 2019 | Visit | | [address] | | | | | | [place] | | | | | | [address] | | | | | | | [...] 100 units/mL flush 500 | Given | 11/10/19 | 500 | | | | Units 500 Units (5 mL), | | 15 2:44 | Units | | | | Intracatheter, PRN, Line Care, | | PM PDT | | | | | Starting Adele 11/09/14 at 1439 | | | | | | + +--------+ +-------+------+------+ +---+---+ | | | +---+---+ documented in this encounter"
--- OUTSIDE RECORDS SUMMARY | ~2019-05-05 | XMS | Encounter Summary ---
Demographics + + + | Address | [address] | | | [place] [address] | + + + | Home Phone [...] [place] | | | | | [address] | | + + + + + Care Team Providers + +------+ + | Care Extrusion Line Operator Name | Role | Phone | [...] + + | Closed | Specialty | Oncology | Diagnoses | | Tabitha, | | | Services | | Squamous | Alfredenstein, | MD Adelita | | | Required | | cell | Ayana B, | [address] | | | | | carcinoma | MD [address] [place] | | | | | lung (HCC) | [address] | [place], [place] | | | | | | [place], | [address] | | | | | | [place] [address] | Phone: | | | | | | | [phone] | | | | | | | Fax: | | | | | | | [phone] | +--------+ + + + + + Reason for Visit +---------+ + | Reason | Comments | +---------+ + | Results | PET Scan | +---------+ + Encounter Details +--------+ + + + + | Date | Type | Department | Care Team | Description | +--------+ + + + + | 08/12/ | Telephone | [facility] | Claudia, | Results (PET Scan) | | 2013 | | PULMONARY [address] | Ayana Looney MD | | | | | [place], | | | | | | [place] [address] | | | | | | [phone] | | | +--------+ + + + [...] | | 2018 | Visit | | AMANDA-Avila [address] | | | | | | [facility] | | | | | | [place] [address] | | | | | | [phone] | | | | | | | | +--------+ + + + + | 06/08/ | Office | Physical Medicine | Rocky Santos, | | | 2019 | Visit | and Rehabilitation | MD [address] | | | | | | [place] | | | | | | [address] | | | | | | | | +--------+ + + + + | 06/16/ | Appointment | Pulmonology | Eveline Jaffe | | | 2019 | | | MD Nichole Carter [address] | | | | | | [address] [place] | | | | | | [place] [address] | | | | | | [phone] | | | | | | | | +--------+ + + + + | 06/16/ | Office | Pulmonology | Eveline Jaffe | | 2019 | Visit | | MD Nichole Carter [address] | | | | | | [address] [place] | | | | | | [place] [address] | | | | | | [phone] | | | | | | | | +--------+ + + + + | 08/24/ | Office | Cardiology | Anisha Lopez DO | | | 2019 | Visit | | [address] | | | | | | [place] | | | | | | [address] | | | | | | | | +--------+ + + + + + + +--------+ + + | Name | Type | Priori | Associated Diagnoses | Order Schedule | | | | ty | | | + + +--------+ + + | * [facility] | Outpatient | Routin | Squamous cell | Ordered: 08/12/2013 | | Oncology - AMB | Referral | e | carcinoma lung (HCC) | | | Referral | | | | | + + +--------+ + + documented as of this encounter Visit Diagnoses + + | Diagnosis | + + | Squamous cell carcinoma lung (HCC) - Primary Malignant neoplasm of bronchus and lung, | | unspecified site | + + documented in this encounter"
--- OUTSIDE RECORDS SUMMARY | ~2019-05-05 | XMS | Encounter Summary ---
Demographics + + + | Address | [address] | | | [place] [address] | + + + | Home Phone [...] [place] | | | | | [address] | | + + + + + Care Team Providers + +------+ + | Care Cms Expert Name | Role | Phone | + [...] | | | [place] | | [place] [address] | | | | | finger, left | | Phone: | | | | | index | | [phone] | | | | | finger | | Fax: | | | | | [place] | | [phone] | | | | | finger, left | | | | | | | middle | | | | | | | finger | | | | | | | Procedures | | | | | | | FL INCISE | | | | | | | FINGER | | | | | | | TENDON | | | | | | | [place]ATH [place] | | | | | | | INCISE | | | | | | | FINGER | | | | | | | TENDON | | | | | | | SHEATH [place] | | | | | | | [...] + + | 12/14/ | Anesthesia | [facility] | Juventino, | | | 2019 | Event | MED CTR OR INTRA OP | Davis Alvarenga MD | | | | | [address] | [address] | | | | | [place] | [place] | | | | | [address] | [address] | | | | | [phone] | | | +--------+ + + + [...] +----+---+ + + | | 1 | [place] | | | | 2 | 43-degrees [...] W | | | | | | [facility] | | | | | | [place] [address] | | | | | | [phone] | | | | | | | | +--------+ + + + + | 06/08/ | Office | Physical Medicine | Rocky Santos, | | | 2019 | Visit | and Rehabilitation | [address] | | | | | | [place] | | | | | | [address] | | | | | | | | +--------+ + + + + | 06/16/ | Appointment | Pulmonology | Eveline Jaffe | | | 2019 | | | MD Nichole Carter [address] | | | | | | [address] [place] | | | | | | [place] [address] | | | | | | [phone] | | | | | | | | +--------+ + + + + | 06/16/ | Office | Pulmonology | Eveline Jaffe | | | 2019 | Visit | | MD Nichole Carter | | | | | | [address] [place] | | | | | | [place], [place] [address] | | | | | | [phone] | | | | | | | | +--------+ + + + + | 08/24/ | Office | Cardiology | Anisha Lopez DO | | | 2019 | Visit | | [address] | | | | | | [place] | | | | | | [address] | | | | | | | [...]
--- OUTSIDE RECORDS SUMMARY | ~2019-05-05 | XMS | Encounter Summary ---
Demographics + + + | Address | [address] | | | [place] [address] | + + + | Home Phone [...] [place] | | | | | [address] | | + + + + + Care Team Providers + +------+ + | Care Professor Of Chemical Engineering Name | Role | Phone | + +------+ + | Davis Ivan MD | PCP | | + +------+ + Encounter Details +--------+ + + + + | Date | Type | Department | Care Team | Description | +--------+ + + + + | 06/08/ | Orders Only | [facility] [place] | Sara Evans, | Chronic obstructive | | 2015 | | PULMONARY [address] | RN | pulmonary disease, | | | | [place], | | unspecified COPD | | | | [place] [address] | | type (HCC) | | | | [phone] | | | +--------+ + + + [...] W | | | | | | [facility] | | | | | | [place] [address] | | | | | | [phone] | | | | | | | | +--------+ + + + + | 06/08/ | Office | Physical Medicine | Rocky Santos, | | | 2019 | Visit | and Rehabilitation | [address] | | | | | | [place] | | | | | | [address] | | | | | | | | +--------+ + + + + | 01/16/ | Appointment | Pulmonology | Eveline Jaffe | | | 2019 | | | MD Nichole Carter [address] | | | | | | [address] [place] | | | | | | [place] [address] | | | | | | [phone] | | | | | | | | +--------+ + + + + | 06/16/ | Office | Pulmonology | Eveline Jaffe | | | 2019 | Visit | | MD Nichole Carter [address] | | | | | | [address] [place] | | | | | | [place] [address] | | | | | | [phone] | | | | | | | | +--------+ + + + + | 08/24/ | Office | Cardiology | Anisha Lopez DO | | 2019 | Visit | | [address] | | | | | | [place] | | | | | | [address] | | | | | | | | +--------+ + + + + documented as of this encounter Visit Diagnoses + + | Diagnosis | + + | Chronic obstructive pulmonary disease, unspecified COPD type (HCC) | + + documented in this encounter"
--- OUTSIDE RECORDS SUMMARY | ~2019-05-05 | XMS | Encounter Summary ---
Demographics + + + | Address | [address] | | | [place] [address] | + + + | Home Phone [...] [place] | | | | | [address] | | + + + + + Care Team Providers + +------+ + | Care Finisher Wallboard And Plasterboard Name | Role | Phone | + [...] + + | 10/22/ | [facility] | [facility] | Giuliano Padilla, | Hyperlipidemia, | | 2018 | Visit | ORTHOPEDIC SURGERY | MD [address]ia [address] | unspecified | | | | [address] [facility] | [place] | hyperlipidemia type | | | | [place] | [address] | (Primary Dx); | | | | [address] | | Hypertension, | | | | [phone] | | unspecified type; Hx | | [...] | | | | | [place] [address] | | | | | | [phone] | | | | | | | | +--------+ + + + + | 06/08/ | Office | Physical Medicine | Rocky Santos, | | | 2019 | Visit | and Rehabilitation | [address] | | | | | | [place] | | | | | | [id number] | | | | | | | | +--------+ + + + + | 06/16/ | Appointment | Pulmonology | Eveline Jaffe | | | 2019 | | | MD Nichole Carter | | | | | | [address] [place] | | | | | | [place], [place] [address] | | | | | | [phone] | | | | | | | | +--------+ + + + + | 06/16/ | Office | Pulmonology | Eveline Jaffe | | | 2019 | Visit | | MD Nichole Carter | | | | | | [address] [place] | | | | | | [place] [address] | | | | | | [phone] | | | | | | | | +--------+ + + + + | 08/24/ | Office | Cardiology | Anisha Lopez DO | | | 2019 | Visit | | [address] | | | | | | [place] | | | | | | [address] | | | | | | | [...] | | | | g/dL | [facility] | | | | | | MEDICAL [...] [address] | [place] | [phone] | | [facility] | | [address] | | | - LABORATORY | | [...] mL/min/1.73m2 | [facility] | | | [facility] | RATE,ESTIMATED | | MEDICAL | | | | mL/min/1.15d5Bapu than | | CENTER - | | [...] | | | | mg/dL | [facility] | | | | | | MEDICAL [...] + | [facility] | [address] | [place] | [phone] | | [facility] | | [address] | | | - LABORATORY | | [...] [address] | [place] | [phone] | | [facility] | | [address] | | | - LABORATORY | | [...] | | | | DIANA SMART MD ([id number]) | | | | | | on [...]
--- OUTSIDE RECORDS SUMMARY | ~2019-05-05 | XMS | Encounter Summary ---
Demographics + + + | Address | [address] | | | [place] [address] | + + + | Home Phone [...] [place] | | | | | [address] | | + + + + + Care Team Providers + +------+ + | Care Sock Lining Stitcher Name | Role | Phone | + [...] | | bronchus and | [address] | | | | | lung, | [place] | [place], | | | | | unspecified | [place], [place] | [place] [address] | | | | | site | [address] | Phone: | | | | | Procedures | Phone: | [phone] | | | | | CHG | [phone] | Fax: | | | | | [place] | Fax: | [phone] | | | | | [place],5 | [phone] | | | | | | [place] [...] + + | 08/22/ | Hospital | [facility] | Jimmy Banegas DO | | | 2013 | Encounter | MED CTR RADIATION | [address] | | | | | ONCOLOGY [address] | [place] | | | | | [place], | [address] | | | | | [place] [address] | | | | | | [phone] | | | +--------+ + + + [...] | 2018 | Visit | | [address] | | | | | | [facility] | | | | | | [place] [address] | | | | | | [phone] | | | | | | | | +--------+ + + + + | 06/08/ | Office | Physical Medicine | Rocky Santos, | | | 2019 | Visit | and Rehabilitation | MD [address] | | | | | | [place] | | | | | | [address] | | | | | | | | +--------+ + + + + | 06/16/ | Appointment | Pulmonology | Eveline Jaffe | | | 2019 | | | MD Nichole Carter | | | | | | [address] [place] | | | | | | [place] [address] | | | | | | [phone] | | | | | | | | +--------+ + + + + | 06/16/ | Office | Pulmonology | Eveline Jaffe | | | 2019 | Visit | | MD Nichole Carter [address] | | | | | | [address] [place] | | | | | | [place] [address] | | | | | | [phone] | | | | | | | | +--------+ + + + + | 08/24/ | Office | Cardiology | Anisha Lopez DO | | | 2020 | Visit | | [address] | | | | | | [place] | | | | | | [address] | | | | | | | | +--------+ + + + + documented as of this encounter Visit Diagnoses Not on filedocumented in this encounter"
--- OUTSIDE RECORDS SUMMARY | ~2019-05-05 | XMS | Encounter Summary ---
Demographics + + + | Address | [address] | | | [place] [address] | + + + | Home Phone [...] [place] | | | | | [address] | | + + + + + Care Team Providers + +------+ + | Care Rn Hyperbaric Name | Role | Phone | + [...] Edmond Azar | | | | | [phone] | [place] [address] | | +--------+ + + + + [...] | | | | | [place] [address] | | | | | | [phone] | | | | | | | | +--------+ + + + + | 06/08/ | Office | Physical Medicine | Rocky Santos | | | 2019 | Visit | and Rehabilitation | MD Nichole Landis | | | | | | [place] | | | | | | [address] | | | | | | | | +--------+ + + + + | 06/16/ | Appointment | Pulmonology | Eveline Jaffe | | 2019 | | | MD Nichole Carter [address] | | | | | | [address] | | | | | | [place] [address] | | | | | | [phone] | | | | | | | | +--------+ + + + + | 06/16/ | Office | Pulmonology | Eveline Jaffe | | | 2019 | Visit | | MD Raul [address] | | | | | | [place] | | | | | | [place] [address] | | | | | | [phone] | | | | | | | | +--------+ + + + + | 08/24/ | Office | Cardiology | Anisha Lopez DO | | | 2019 | Visit | | [address] | | | | | | [place] | | | | | | [address] | | | | | | | [...]
--- OUTSIDE RECORDS SUMMARY | ~2019-05-05 | XMS | Encounter Summary ---
Demographics + + + | Address | [address] | | | [place] [address] | + + + | Home Phone [...] [place] | | | | | [address] | | + + + + + Care Team Providers + +------+ + | Care Outsewer Name | Role | Phone | + [...] | | neoplasm of | [address] | [address] | | | | | bronchus and | [place] | [address] | | | | | lung, | [place], [place] | [place], | | | | | unspecified | [address] | [place] [address] | | | | | site | Phone: | Phone: | | | | | | [phone] | [phone] | | | | | | Fax: | Fax: | | | | | | [phone] | [phone] | +--------+ + + + + + Reason for Visit + + + | Reason | Comments | + + + | IDT Note | | + + + Encounter Details +--------+ + + + + | Date | Type | Department | Care Team | Description | +--------+ + + + + | 07/26/ | Telephone | [facility] | Sujata Baca, | IDT Note | | 2014 | | [facility] | RN | | | | | INFUSION [address] | | | | | | [place], | | | | | | [place] [address] | | | | | | [phone] | | | +--------+ + + + [...] | | | | | [place] [address] | | | | | | [phone] | | | | | | | | +--------+ + + + + | 06/08/ | Office | Physical Medicine | Rocky Santos, | | | 2019 | Visit | and Rehabilitation | MD Nichole Landis | | | | | | [place] | | | | | | [address] | | | | | | | | +--------+ + + + + | 06/16/ | Appointment | Pulmonology | Eveline Jaffe | | 2019 | | | MD Nichole Carter | | | | | | [address] [place] | | | | | | [place] [address] | | | | | | [phone] | | | | | | | | +--------+ + + + + | 06/16/ | Office | Pulmonology | Eveline Jaffe | | | 2019 | Visit | | MD Nichole Carter W | | | | | | [address] [place] | | | | | | [place] [address] | | | | | | [phone] | | | | | | | | +--------+ + + + + | 08/24/ | Office | Cardiology | Anisha Lopez DO | | | 2019 | Visit | | [address] | | | | | | [place] | | | | | | [address] | | | | | | | [...]
--- OUTSIDE RECORDS SUMMARY | ~2019-05-05 | XMS | Encounter Summary ---
Demographics + + + | Address | [address] | | | [place] [address] | + + + | Home Phone [...] [place] | | | | | [address] | | + + + + + Care Team Providers + +------+ + | Care Surface Logging Systems Logger Name | Role | Phone | + +------+ + | Davis Gilbert MD | PCP | | + +------+ + Encounter Details +--------+ + + + + | Date | Type | Department | Care Team | Description | +--------+ + + + + | 03/29/ | Hospital | [facility] | Silviano Cabrera MD | | | 2013 - | Encounter | [facility] [address] | [address] | | | | | [place] | [facility], | | | 04/07/ | | [place], [place] | [place] [address] | | | 2013 | | [address] | [phone] | | | | | [phone] | | | +--------+ + + + [...] Date of Service: 04/07/14 1016 Status: Signed Housing Quality Standard Inspector: RITA Rubio (Advanced Registered Nurse Practitioner) [facility] Service: Orthopedic Surgery Brief Post-op Discharge Note [...] Follow up: Dr. 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 You may get the following medications from [...] Mayelin Rankin RN at 04/07/141618 Author: Mayelin Rankin RN Service: (none) Author Type: Registered Nurse Filed: 04/07/141619 Date of Service: 04/07/141618 Status: Signed Housing Quality Standard Inspector: Mayelin Rankin RN (Registered Nurse) Discharged to [...] (none) Author Type: Occupational Therapist Filed: 04/07/14 5840 Date of Service: 11/07/14 1421 Status: Signed Housing Quality Standard Inspector: BRITTANY Walters (Classified Advertising Clerk) 04/07/14 1421 OT Last Visit OT Received On 04/07/14 Reason for Treatment Spinal surgery Requires OT Follow Up Yes Assistance Required 1 person Senior Ui Ux Developer Needed No Family/Caregiver Present Yes Precautions Spinal Precautions Lumbar Other Precautions fall risk Other Comments Comments pt supine in bed upon CULLED FRUIT PACKER arrival. pt waiting for X-ray to be [...] Recommendation Recommendation Short-term skilled OT Equipment Recommended Field Property Loss Specialist;Sock aid;Elastic shoe laces;Sponge long handled Education Completed: [...] (none) Author Type: Registered Nurse Filed: 04/07/14 1309 Date of Service: 04/07/14 1306 Status: Signed Housing Quality Standard Inspector: Mayelin Rankin RN (Registered Nurse) Patient's significant other came to desk stating that he didn't want her to be discharged u ntil a lumbar x-ray was done. Vidal Dalton notified and order received. onver robert Martinezaction, Provider Unknown - 04/07/2014 11:15 AM PST Case Management by CLAIRE Lee at 04/07/14 1115 Author: CLAIRE Lee Service: (none) Author Type: Director Of Instruction Filed: 04/07/14 1117 Date of Service: 04/07/14 1115 Status: Signed Housing Quality Standard Inspector: CLAIRE Lee (Director Of Instruction) arranged for [facility] physical therapy as they are the provider for the [facility] area. Pt had no other resource concerns at this time. Colin YUNSW onver robert Transaction, Provider Unknown - 04/07/2014 10:33 AM PST Therapy Progress Note by Denver Arias PTA at 04/07/14 1033 Author: Denver Arias PTA Service: (none) Author Type: Air Chipper Filed: 04/07/14 1101 Date of Service: 04/07/14 1033 Status: Signed Housing Quality Standard Inspector: Denver Arias PTA (Air Chipper) 04/07/14 1033 PT Last Visit PT Received [...] Date of Service: 04/06/14 1631 Status: Signed Housing Quality Standard Inspector: Shayne Chen RN (Registered Nurse) Discussed POC [...] (none) Author Type: Physical Therapist Filed: 04/06/14 7358 Date of Service: 04/06/14 1450 Status: Signed Housing Quality Standard Inspector: Min Choe PT (Physical Therapist) 04/06/14 1450 [...] Date of Service: 04/06/14 1412 Status: Signed Housing Quality Standard Inspector: RITA Rubio (Advanced Registered Nurse Practitioner) [facility] Service: Orthopedic Surgery Note Doing well. Leg [...] Date of Service: 04/06/14 1125 Status: Signed Housing Quality Standard Inspector: Min Choe PT (Physical Therapist) 04/06/14 1125 [...] Note by Noreen Sharma RN at 04/05/14 4753 Author: Noreen Sharma RN Service: (none) Author Type: Registered Nurse Filed: 04/05/14 1507 Date of Service: 04/05/141540 Status: Signed Housing Quality Standard Inspector: Noreen Sharma RN (Registered Nurse) Patient requesting pain medication from INTERNAL CORROSION SPECIALIST. When returning to the room with the [...] 1436 Date of Service: 04/05/141433 Status: Signed Housing Quality Standard Inspector: RITA Rubio (Advanced Registered Nurse Practitioner) [facility] Service: Orthopedic Surgery Progress Note Hospital Day: [...] Notes by Archana Adams RD at 04/05/14 8173 Author: Archana Adams RD Service: (none) Author Type: Registered Dietitian Filed: 04/05/14 1426 Date of Service: 04/05/14 291 Status: Signed Housing Quality Standard Inspector: Archana Adams RD (Registered Dietitian) Nutrition Assessment and Recommendations Assessment: Pt triggered for length of stay. BMI: 30.5 kg/m2, (class I obesity) IBW: 50 kg (152%) ABW: 56.4 kg Food and nutrition-related hx: Pt reports that she does not follow any special diets at [facility], although she has been instructed to follow a low cholesterol, low sodium diet. Appetite w as very good DOCKMASTER. Current intake: Pt reports intake is currently [...] brought in for pt. Estimated needs: Kcal: 7818-8381 kcal (25-30 kcal/kg adj BW) Protein: 56.4- [...] Note by Noreen Sharma RN at 04/05/14 4393 Author: Noreen Sharma RN Service: (none) Author Type: Registered Nurse Filed: 04/05/14 3089 Date of Service: 04/05/141405 Status: Signed Housing Quality Standard Inspector: Noreen Sharma RN (Registered Nurse) Patient's significant other is vocal about not wanting patient to go to a SNF. He is reque sting to appeal discharge to SNF. AMANDA Drake aware. Patient also lost dentures 2 days ago. Kitchen, linen services, risk management, and Astrid (surgical carpet floor layer apprentice) all notified. onver robert Transaction, Provider Unknown - 04/05/2014 2:04 PM PST Therapy Progress Note by Denver Arias PTA at 04/05/14 1404 Author: Denver Arias PTA Service: (none) Author Type: Air Chipper Filed: 04/05/14 1423 Date of Service: 04/05/14 1404 Status: Signed Housing Quality Standard Inspector: Denver Arias PTA (Air Chipper) 04/05/14 1404 PT Last Visit PT Received [...] (none) Author Type: Occupational Therapist Filed: 04/05/14 8466 Date of Service: 04/05/14 1350 Status: Signed Housing Quality Standard Inspector: BRITTANY Walters (Classified Advertising Clerk) 04/05/14 1350 OT Last Visit OT Received On 04/05/14 Assistance Required 1 person Senior Ui Ux Developer Needed No Family/Caregiver Present Yes Precautions Spinal Precautions Lumbar Other Precautions fall precaution Other Comments Comments pt supine with HOB slightly elevated. pt willing to discuss dressing tasks while i n bed. Able to recall 2/3 precautions. demonstrated use of fleece tier/sock aide and shoe horn f or LE dressing tasks. LE Dressing LE Dressing Yes LE Dressing Adaptive Equipment Field Property Loss Specialist;Sock aide;Shoe horn LE Dressing Where Assessed Bed [...] Recommendation Recommendation Short-term skilled OT Equipment Recommended Field Property Loss Specialist;Sock aid;Sponge long handled Education Completed: Education Topic: ADL, A/E Completed with: Patient, Spouse Completed by: Verbal Education, Demonstration Response to Education: Stated Understanding, Reinforcement Necessary for Education Unde rstanding Occupational Therapy Plan: Continue OT treatment per POC onver robert Martinezaction, Provider Unknown - 04/05/2014 11:15 AM PST Case Management by CLAIRE Lee at 04/05/14 1243 Author: CLAIRE Lee Service: (none) Author Type: Director Of Instruction Filed: 04/05/14 5072 Date of Service: 04/05/141114 Status: Addendum Housing Quality Standard Inspector: CLAIRE Lee (Director Of Instruction) Related Notes: Original Note by CLAIRE Lee (Director Of Instruction) filed at 04/05/14 9661 KRYSTAL met pt for discharge planning. CM educated her regarding SNF placement for rehab and pro vided pt with a list of local SNFs. Pt agreed to SNF placement and requested [facility]. CM fax ed pt's info to [facility] and spoke with their real estate services coordinator who agreed to accept pt upon discharge. KRYSTAL informed pt & her significant other who was upset that pt's false teeth a re missing and stated pt is not going anywhere until she has teeth. KRYSTAL phoned [facility]'s Risk Management Dept and spoke with Bryant who stated the Surgical Supply Technician will need to be no tified. CM notified Astrid the Surgical Supply Technician and filed a QRR. CM also notified pt's RN . Pt had no other resource concerns at this time. Discharge Plan: SNF Colin SOSA onver robert Transaction, Provider Unknown - 04/05/2014 10:24 AM PST Therapy Progress Note by Denver Arias PTA at 04/05/14 1024 Author: Denver Arias PTA Service: (none) Author Type: Air Chipper Filed: 04/05/14 1030 Date of Service: 04/05/14 1024 Status: Signed Housing Quality Standard Inspector: Denver Arias PTA (Air Chipper) 04/05/14 1024 PT Last Visit PT Received [...] 04/04/142143 Date of Service: 04/04/142142 Status: Signed Housing Quality Standard Inspector: Leandra Rain RRT (Registered Respiratory Therapist) Please change Mrs. Carmona Albuterol nebs to PRN, Thanks Respiratory Therapy onnarendra jones Transaction, Provider Unknown - 04/04/2014 2:12 PM PST Therapy Progress Note by Denver Arias PTA at 04/04/14 1412 Author: Denver Arias PTA Service: (none) Author Type: Air Chipper Filed: 04/04/14 1419 Date of Service: 04/04/14 141 Status: Signed Housing Quality Standard Inspector: Denver Arias PTA (Air Chipper) 04/04/14 1412 PT Last Visit PT Received [...] Author: CLAIRE Lee Service: (none) Author Type: Director Of Instruction Filed: 04/04/14 1317 Date of Service: 04/04/14 1316 Status: Signed Housing Quality Standard Inspector: CLAIRE Lee (Director Of Instruction) Pt has an IPR consult pending. Pt has no other discharge needs at this time. CM will contin ue to follow as needed. Colin SOSA onver robert Martinezaction, Provider Unknown - 04/04/2014 10:23 AM PST Therapy Progress Note by Denver Arias PTA at 04/04/14 1023 Author: Denver Arias PTA Service: (none) Author Type: Air Chipper Filed: 04/04/14 1025 Date of Service: 04/04/14 1023 Status: Signed Housing Quality Standard Inspector: Denver Arias PTA (Air Chipper) 04/04/14 1023 PT Last Visit PT Received [...] 0829 Date of Service: 04/04/14701 Status: Signed Housing Quality Standard Inspector: Silviano Cabrera MD (Physician) [facility] Service: Orthopedic Surgery Progress Note Hospital Day: [...] 04/04/148 Date of Service: 04/04/14234 Status: Signed Housing Quality Standard Inspector: Catia Andres RN (Registered Nurse) Patient talking [...] 04/04/14826 Date of Service: 04/03/141799 Status: Signed Housing Quality Standard Inspector: Silviano Cabrera MD (Physician) [facility] Service: Orthopedic Surgery Progress Note Hospital Day: [...] Note by May Alvarez RN at 04/03/14 139 Author: May Alvarez RN Service: (none) Author Type: Registered Nurse Filed: 04/03/14 629 Date of Service: 04/03/141746 Status: Signed Housing Quality Standard Inspector: May Alvarez RN (Registered Nurse) Patient attempting [...] Note by Denver Arias PTA at 04/03/14 4547 Author: Denver Arias PTA Service: (none) Author Type: Air Chipper Filed: 04/03/14 1401 Date of Service: 04/03/14 1357 Status: Signed Housing Quality Standard Inspector: Denver Arias PTA (Air Chipper) 04/03/14 1357 PT Last Visit PT Received [...] Author: Antonio Vides Service: (none) Author Type: Concrete Puddler Filed: 04/03/14 1257 Date of Service: 04/03/14 1255 Status: Signed Housing Quality Standard Inspector: Antonio Vides (Concrete Puddler) Stopped in for care, pt lying on bed was not willing to interact with the pt. Manufacturing Team Leader will stop by another time. chaplain Jane manager internship onver robert Transaction, Provider Unknown - 04/03/2014 11:38 AM PST Therapy Progress Note by BLAIR Chang at 04/03/14 1138 Author: BLAIR Chang Service: (none) Author Type: Occupational Therapist Filed: 04/03/14 1245 Date of Service: 04/03/14 1138 Status: Signed Housing Quality Standard Inspector: BLAIR Chang (Occupational Therapist) 04/03/14 1138 OT Last Visit OT Received On 04/03/14 Reason for Treatment Spinal surgery Requires OT Follow Up Yes Assistance Required 1 person Senior Ui Ux Developer Needed No Family/Caregiver Present No Precautions Spinal [...] improve. (SNF) Equipment Recommended Sponge long handled;Sock aid;Field Property Loss Specialist onver robert Transaction, Provider Unknown - 04/03/2014 9:50 AM PST Therapy Progress Note by Denver Arias PTA at 04/03/14 4969 Author: Denver Arias PTA Service: (none) Author Type: Air Chipper Filed: 04/03/14 0953 Date of Service: 04/03/14 0950 Status: Signed Housing Quality Standard Inspector: Denver Arias PTA (Air Chipper) 04/03/14 0950 PT Last Visit PT Received [...] 04/03/1444 Date of Service: 04/02/142204 Status: Signed Housing Quality Standard Inspector: Deborah Johnson RN (Registered Nurse) Pt found [...] Date of Service: 04/02/14 141 Status: Signed Housing Quality Standard Inspector: Winsome Lovett RN (Registered Nurse) Pt very [...] Date of Service: 04/02/14 1320 Status: Signed Housing Quality Standard Inspector: Sheyla Brewster PT (Physical Therapist) 04/02/14 1300 [...] caregiver 25 hours/week Sheyla Lopez PT 04/02/2014 onversion Transact ion, Provider Unknown - 04/02/2014 12:44 PM PSTFormatting of this note might be different fr om the original. Therapy Progress Note by BLAIR Chang at 04/02/14 1244 Author: BLAIR Chang Service: (none) Author Type: Occupational Therapist Filed: 04/02/14 1256 Date of Service: 04/02/14 1244 Status: Signed Housing Quality Standard Inspector: BLAIR Chang (Occupational Therapist) 04/02/14 1244 OT Last Visit OT Received On 04/02/14 Reason for Treatment Spinal surgery Requires OT Follow Up Yes Assistance Required 1 person Senior Ui Ux Developer Needed No Family/Caregiver Present No Precautions Spinal [...] skilled OT Equipment Recommended Sponge long handled;Sock aid;Field Property Loss Specialist Sheyla Morris PT - 04/02/2014 9:05 AM PST Therapy Progress Note by Sheyla Brewster PT at 04/02/14 0905 Author: Sheyla Brewster PT Service: (none) Author Type: Physical Therapist Filed: 04/02/14 0947 Date of Service: 04/02/14904 Status: Signed Housing Quality Standard Inspector: Sheyla Brewster PT (Physical Therapist) 04/02/14 0900 [...] 04/02/1453 Date of Service: 04/02/14821 Status: Signed Housing Quality Standard Inspector: Sheyla Brewster PT (Physical Therapist) 04/02/14 0800 [...] 04/04/14825 Date of Service: 04/02/14700 Status: Signed Housing Quality Standard Inspector: Silviano Cabrera MD (Physician) [facility] Service: Orthopedic Surgery Progress Note Hospital Day: [...] Note by Giovani Caceres PT at 04/01/14 142 Author: Giovani Caceres PT Service: (none) Author Type: Physical Therapist Filed: 04/01/14 1426 Date of Service: 04/01/141423 Status: Signed Housing Quality Standard Inspector: Giovani Caceres PT (Physical Therapist) 04/01/14 1357 [...] Date of Service: 04/01/14 1053 Status: Signed Housing Quality Standard Inspector: Giovani Caceres PT (Physical Therapist) 04/01/14 1021 [...] 04/01/14916 Date of Service: 04/01/14913 Status: Signed Housing Quality Standard Inspector: RITA Rubio (Advanced Registered Nurse Practitioner) [facility] Service: Orthopedic Surgery Progress Note Hospital Day: [...] Notes by Kari Mckeon RPH at 03/31/14 1756 Author: Kari Mckeon RPH Service: (none) Author Type: Pharmacist Filed: 03/31/14 1064 Date of Service: 03/31/141358 Status: Signed Housing Quality Standard Inspector: Kari Mckeon RPH (Pharmacist) >> KARI MCKEON 03/31/2014 13:59 Zosyn Extended Infusion Initial Consult Thea Carmona 68 y.o. female Estimated Creatinine Clearance: 56 mL/min (by C-G formula based on Cr of 0.87). NEUTROPHILS ABS Date Value Range Status 03/30/2014 9.8* 1.9 - 7.4 K/uL Final Testing performed at [facility], [address] [place] [id number] CREATININE Date Value Range Status 03/30/2014 0.87 0.50 - 1.00 mg/dL Final Testing performed at [facility], [address] [place] [id number] Zosyn extended Infusion loading and maintenance dose guidelines Loading Dose 4.5 g IV Over 30 minutes CrCl >20 ml/min 3.375 g IV Q 8 hours Over 4 hours CrCl 10-20 ml/min 3.375 g IV Q 12 hours Over 4 hours CrCl <10, HD, PD Follow [facility] Dosage Adjustments in Renal Dysfunction Protocol Plan [...] Denver Arias PTA Service: (none) Author Type: Air Chipper Filed: 03/31/14 1044 Date of Service: 03/31/14 104 Status: Signed Housing Quality Standard Inspector: Denver Arias PTA (Air Chipper) 03/31/14 1043 PT Last Visit PT Received [...] Denver Arias PTA Service: (none) Author Type: Air Chipper Filed: 03/30/14 1446 Date of Service: 03/30/141443 Status: Signed Housing Quality Standard Inspector: Denver Arias PTA (Air Chipper) 03/30/14 1444 PT Last Visit PT Received [...] Denver Arias PTA Service: (none) Author Type: Air Chipper Filed: 03/30/148 Date of Service: 03/30/141115 Status: Signed Housing Quality Standard Inspector: Denver Arias PTA (Air Chipper) 03/30/141115 PT Last Visit PT Received On [...] Author: CLAIRE Lee Service: (none) Author Type: Director Of Instruction Filed: 03/30/14 0953 Date of Service: 03/30/14951 Status: Signed Housing Quality Standard Inspector: CLAIRE Lee (Director Of Instruction) CM met with pt for discharge planning. [...] as needed. Discharge Plan: Home. Colin Abraham [facility] 03/30/14 0951 Discharge Planning Evaluation Admitting [...] 0757 Date of Service: 03/30/14755 Status: Signed Housing Quality Standard Inspector: RITA Rubio (Advanced Registered Nurse Practitioner) [facility] Service: Orthopedic Surgery Progress Note Hospital Day: [...] 1009 Date of Service: 03/30/14706 Status: Signed Housing Quality Standard Inspector: BLAIR Raymundo (Occupational Therapist) 03/30/14706 Precautions Spinal Precautions Lumbar;TLSO on when upright (fusion L4-5) Other Precautions fall risk Home Environment Bathroom Equipment Grab bars in shower/bath;Hand-held shower head;Tub transfer bench;Shower chair;Raised toilet seat Additional Comments Refer to PT note for PLOF Prior Function Level of [place]bour Modified independent with functional mobility;Assist with ADLs;Assist [...] ntaining back precautions LE Dressing Adaptive Equipment Field Property Loss Specialist;Shoehorn long-handled;Sock aid Arm Goals Pt Will Perform AROM B UE;1 set;10 reps;With good activity tolerance 03/30/14 0707 ADL Goals Pt Will Perform Grooming Standing at sink;With supervision;Maintaining back precautions Pt Will Perform LE Dressing At edge of bed;In chair;Supervision;With adaptive equipment;Delores ntaining back precautions LE Dressing Adaptive Equipment Field Property Loss Specialist;Shoehorn long-handled;Sock aid Arm Goals Pt Will Perform [...] 2:41 PM PDT Progress Notes by Hugo Dosuza RPH at 03/29/14 1441 Author: Hugo Dsouza RPH Service: (none) Author Type: Pharmacist Filed: 03/29/14 1441 Date of Service: 03/29/141440 Status: Signed Housing Quality Standard Inspector: Hugo Dsouza RPH (Pharmacist) Pharmacy will renal dose as needed once labs are available. onver robert Transaction, Provider Unknown - 03/29/2014 2:20 PM PDT Therapy Progress Note by Randee aCge PT at 03/29/14 1420 Author: Randee Cage PT Service: (none) Author Type: Physical Therapist Filed: 03/29/14 1553 Date of Service: 03/29/14 1420 Status: Signed Housing Quality Standard Inspector: Randee Cage PT (Physical Therapist) 03/29/14 1420 [...] walker Home Equipment Walker 4 wheeled;Cane single point;Field Property Loss Specialist;Chair lift;Bed hospital Additional Comments Lives with s.o., [...] outpt PT prn) Prior Function Level of [place] Assist with ADLs;Assist with functional mobility;Modified independent [...] Note by Kari Mccarty RN at 03/29/14 4714 Author: Kari Mccarty RN Service: Anesthesiology Author Type: Registered Nurse Filed: 03/29/14 2726 Date of Service: 03/29/140 Status: Signed Housing Quality Standard Inspector: Kari Mccarty RN (Registered Nurse) Pt difficult [...] | | | | | [place] [address] | | | | | | [phone] | | | | | | | | +--------+ + + + + | 06/08/ | Office | Physical Medicine | Rocky Santos, | | | 2019 | Visit | and Rehabilitation | MD Varela [address] | | | | | | [place] | | | | | | [id number] | | | | | | | | +--------+ + + + + | 06/16/ | Appointment | Pulmonology | Eveline Jaffe | | | 2019 | | | MD Nichole Carter [address] | | | | | | [address] | | | | | | [place] [address] | | | | | | [phone] | | | | | | | | +--------+ + + + + | 06/16/ | Office | Pulmonology | Eveline Jaffe | | | 2019 | Visit | | MD Nichole Carter | | | | | | [address] | | | | | | [place] [address] | | | | | | [phone] | | | | | | | | +--------+ + + + + | 08/24/ | Office | Cardiology | Anisha Lopez DO | | | 2019 | Visit | | [address] | | | | | | [place] | | | | | | [address] | | | | | | | [...] EXTERNAL | | | | performed at [facility], [address] | | LAB | | | | [address], | | | | | | [place] [address] | | | | + + + + + + | RED CELL | 2.74 (L)Comment: Testing | 3.70 - 5.10 | EXTERNAL | | | COUNT | performed at [facility], [address] | M/uL | LAB | | | | [address], | | | | | | [place] [address] | | | | + + + + + + | Hgb | 8.4 (L)Comment: Testing | 11.3 - 15.5 | EXTERNAL | | | | performed at [facility], [address] | g/dL | LAB | | | | [address], | | | | | | [place] [address] | | | | + + + + + + | Hematocrit, | 25.6 (L)Comment: Testing | 34.0 - 46.0 % | EXTERNAL | | | POC | performed at [facility], [address] | | LAB | | | | [address], | | | | | | [place] [address] | | | | + + + + + + | MCV | 93.6Comment: Testing | 80.0 - 100.0 fl | EXTERNAL | | | | performed at [facility], [address] | | LAB | | | | [address], | | | | | | [place], [place] [address] | | | | + + + + + + | MCH | 30.5Comment: Testing | 27.0 - 34.0 pg | EXTERNAL | | | | performed at [facility], [address] | | LAB | | | | [address], | | | | | | [place], [place] [address] | | | | + + + + + + | MCHC | 32.6Comment: Testing | 32.0 - 35.5 | EXTERNAL | | | | performed at [facility], [address] | g/dL | LAB | | | | [address], | | | | | | [place] [address] | | | | + + + + + + | RDW-CV | 64.8 (H)Comment: Testing | 37 - 53 fl | EXTERNAL | | | | performed at [facility], [address] | | LAB | | | | [address], | | | | | | [place] [address] | | | | + + + + + + | Platelet | 163Comment: Testing | 150 - 400 K/uL | EXTERNAL | | | Count | performed at [facility], [address] | | LAB | | | Plasma | [address], | | | | | | [place] [address] | | | | + + + + + + | MPV | 7.9Comment: Testing | fl | EXTERNAL | | | | performed at [facility], [address] | | LAB | | | | [address], | | | | | | [place] [address] | | | | + + + + + + | Differentia | MANUALComment: Testing | | EXTERNAL | | | l Type | performed at [facility], [address] | | LAB | | | | [address], | | | | | | [place] [address] | | | | + + + + + + | Segmented | 79Comment: Testing | % | EXTERNAL | | | Neutrophils | performed at [facility], [address] | | LAB | | | Manual | [address], | | | | | | [place] [address] | | | | + + + + + + | % Bands | 2Comment: Testing | % | EXTERNAL | | | | performed at [facility], [address] | | LAB | | | | [address], | | | | | | [place] [address] | | | | + + + + + + | % | 1Comment: Testing | % | EXTERNAL | | | Metamyelocy | performed at [facility], [address] | | LAB | | | [address]ita | [address], | | | | | | [place] [address] | | | | + + + + + + | Lymphocytes | 6Comment: Testing | % | EXTERNAL | | | Manual | performed at [facility], [address] | | LAB | | | | [address], | | | | | | [place] [address] | | | | + + + + + + | Monocytes | 12Comment: Testing | % | EXTERNAL | | | Manual | performed at [facility], [address] | | LAB | | | | [address], | | | | | | [place] [address] | | | | + + + + + + | Absolute | 11.9 (H)Comment: Testing | 1.9 - 7.4 K/uL | EXTERNAL | | | Neutrophils | performed at [facility], [address] | | LAB | | | | [address], | | | | | | [place] [address] | | | | + + + + + + | Bands | 0.3 (H)Comment: Testing | 0 - 0.2 K/uL | EXTERNAL | | | Manual | performed at [facility], [address] | | LAB | | | | [address], | | | | | | [place] [address] | | | | + + + + + + | Absolute | 0.2 (H)Comment: Testing | K/uL | EXTERNAL | | | Metamyelocy | performed at [facility], [address] | | LAB | | | [address] | [address], | | | | | | [place] [address] | | | | + + + + + + | Absolute | 0.9 (L)Comment: Testing | 1.0 - 3.9 K/uL | EXTERNAL | | | Lymphocytes | performed at [facility], [address] | | LAB | | | | [address], | | | | | | [place] [address] | | | | + + + + + + | Absolute | 1.8 (H)Comment: Testing | 0 - 0.8 K/uL | EXTERNAL | | | Monocytes | performed at [facility], [address] | | LAB | | | | [address], | | | | | | [place] [address] | | | | + + + + + + | RBC | 2+Comment: ANISONORMAL | | EXTERNAL | | | Morphology | PLT MORPHTesting | | LAB | | | | performed at [facility], [address] | | | | | | [address], | | | | | | [place] [address] | | | | | | | [...] | | | | | [place] [address] | | | | + + + + + + | K | 4.1Comment: Testing | 3.5 - 4.9 | EXTERNAL | | | | performed at [facility], [address] | mmol/L | LAB | | | | [address], | | | | | | [place] [address] | | | | + + + + + + | Cl | 100Comment: Testing | 99 - 109 mmol/L | EXTERNAL | | | | performed at [facility], [address] | | LAB | | | | [address], | | | | | | [place] [address] | | | | + + + + + + | CO2 | 22 (L)Comment: Testing | 23 - 32 mmol/L | EXTERNAL | | | | performed at [facility], [address] | | LAB | | | | [address], | | | | | | [place] [address] | | | | + + + + + + | Anion Gap | 11Comment: Testing | 5 - 20 mmol/L | EXTERNAL | | | | performed at [facility], [address] | | LAB | | | | [address], | | | | | | [place] [address] | | | | + + + + + + | Glucose, | 117 (H)Comment: Testing | 65 - 99 mg/dL | EXTERNAL | | | Fasting | performed at [facility], [address] | | LAB | | | | [address], | | | | | | [place] [address] | | | | + + + + + + | BUN | 17Comment: Testing | 8 - 25 mg/dL | EXTERNAL | | | | performed at [facility], [address] | | LAB | | | | [address], | | | | | | [place] [address] | | | | + + + + + + | Creatinine | 0.79Comment: Testing | 0.50 - 1.00 | EXTERNAL | | | | performed at [facility], [address] | mg/dL | LAB | | | | [address], | | | | | | [place] [address] | | | | + + + + + + | BUN/Creatin | 22Comment: Testing | | EXTERNAL | | | ine Ratio | performed at [facility], [address] | | LAB | | | | [address], | | | | | | [place] [address] | | | | + + + + + + | Calcium | 8.1 (L)Comment: Testing | 8.5 - 10.2 | EXTERNAL | | | | performed at [facility], [address] | mg/dL | LAB | | | | [facility], | | | | | | [place] [address] | | | | + + + [...] | | | | | [place] [address] | | | | + + + [...] Conversion - 01/14/2019 11:10 AM PDT THEA [id number] years | | Oznayc1103/30/2014 8:11 AMCT LUMBAR SPINE WO CONTRAST INDICATION: [...] EXTERNAL | | | | performed at [facility], [address] | | LAB | | | | [address], | | | | | | [place] [address] | | | | + + + + + + | RED CELL | 3.29 (L)Comment: Testing | 3.70 - 5.10 | EXTERNAL | | | COUNT | performed at [facility], [address] | M/uL | LAB | | | | [address], | | | | | | [place] [address] | | | | + + + + + + | Hgb | 9.9 (L)Comment: Testing | 11.3 - 15.5 | EXTERNAL | | | | performed at [facility], [address] | g/dL | LAB | | | | [address], | | | | | | [place] [address] | | | | + + + + + + | Hematocrit, | 30.8 (L)Comment: Testing | 34.0 - 46.0 % | EXTERNAL | | | POC | performed at [facility], [address] | | LAB | | | | [address], | | | | | | [place] [address] | | | | + + + + + + | MCV | 93.5Comment: Testing | 80.0 - 100.0 fl | EXTERNAL | | | | performed at [facility], [address] | | LAB | | | | [address], | | | | | | [place] [address] | | | | + + + + + + | MCH | 30.0Comment: Testing | 27.0 - 34.0 pg | EXTERNAL | | | | performed at [facility], [address] | | LAB | | | | [address], | | | | | | [place] [address] | | | | + + + + + + | MCHC | 32.1Comment: Testing | 32.0 - 35.5 | EXTERNAL | | | | performed at [facility], [address] | g/dL | LAB | | | | [address], | | | | | | [place], [place] [address] | | | | + + + + + + | RDW-CV | 65.6 (H)Comment: Testing | 37 - 53 fl | EXTERNAL | | | | performed at [facility], [address] | | LAB | | | | [address], | | | | | | [place] [address] | | | | + + + + + + | Platelet | 177Comment: Testing | 150 - 400 K/uL | EXTERNAL | | | Count | performed at [facility], [address] | | LAB | | | Plasma | [address], | | | | | | [place] [address] | | | | + + + + + + | MPV | 8.0Comment: Testing | fl | EXTERNAL | | | | performed at [facility], [address] | | LAB | | | | [address], | | | | | | [place] [address] | | | | + + + + + + | Differentia | AUTOMATEDComment: | | EXTERNAL | | | l Type | Testing performed at | | LAB | | | | [facility], [address] | | | | | | [place] | | | | | | [address] | | | | + + + + + + | % Segmented | 79.7Comment: Testing | % | EXTERNAL | | | | performed at [facility], [address] | | LAB | | | Neutrophils | [address], | | | | | | [place] [address] | | | | + + + + + + | % | 9.4Comment: Testing | % | EXTERNAL | | | Lymphocytes | performed at [facility], [address] | | LAB | | | | [address], | | | | | | [place] [address] | | | | + + + + + + | % Monocytes | 10.7Comment: Testing | % | EXTERNAL | | | | performed at [facility], [address] | | LAB | | | | [address], | | | | | | [place] [address] | | | | + + + + + + | % | 0.1Comment: Testing | % | EXTERNAL | | | Eosinophils | performed at [facility], [address] | | LAB | | | | [address], | | | | | | [place] [address] | | | | + + + + + + | % Basophils | 0.1Comment: Testing | % | EXTERNAL | | | | performed at [facility], [address] | | LAB | | | | [address], | | | | | | [place] [address] | | | | + + + + + + | Absolute | 9.8 (H)Comment: Testing | 1.9 - 7.4 K/uL | EXTERNAL | | | Segmented | performed at [facility], [address] | | LAB | | | Neutrophils | [address], | | | | | | [place] [address] | | | | + + + + + + | Absolute | 1.2Comment: Testing | 1.0 - 3.9 K/uL | EXTERNAL | | | Lymphocytes | performed at [facility], [address] | | LAB | | | | [address], | | | | | | [place] [address] | | | | + + + + + + | Absolute | 1.3 (H)Comment: Testing | 0 - 0.8 K/uL | EXTERNAL | | | Monocytes | performed at [facility], [address] | | LAB | | | | [address], | | | | | | [place] [address] | | | | + + + + + + | Absolute | 0.0Comment: Testing | 0 - 0.5 K/uL | EXTERNAL | | | Eosinophils | performed at [facility], [address] | | LAB | | | | [address], | | | | | | [place] [address] | | | | + + + + + + | Absolute | 0.0Comment: Testing | 0 - 0.1 K/uL | EXTERNAL | | | Basophils | performed at [facility], [address] | | LAB | | | | [address], | | | | | | [place] [address] | | | | + + + [...] | | | | | [place] [address] | | | | + + + + + + | K | 4.6Comment: Testing | 3.5 - 4.9 | EXTERNAL | | | | performed at [facility], [address] | mmol/L | LAB | | | | [address], | | | | | | [place] [address] | | | | + + + + + + | Cl | 103Comment: Testing | 99 - 109 mmol/L | EXTERNAL | | | | performed at [facility], [address] | | LAB | | | | [address], | | | | | | [place] [address] | | | | + + + + + + | CO2 | 28Comment: Testing | 23 - 32 mmol/L | EXTERNAL | | | | performed at [facility], [address] | | LAB | | | | [address], | | | | | | [place] [address] | | | | + + + + + + | Anion Gap | 8Comment: Testing | 5 - 20 mmol/L | EXTERNAL | | | | performed at [facility], [address] | | LAB | | | | [address], | | | | | | [place] [address] | | | | + + + + + + | Glucose, | 106 (H)Comment: Testing | 65 - 99 mg/dL | EXTERNAL | | | Fasting | performed at [facility], [address] | | LAB | | | | [address], | | | | | | [place] [address] | | | | + + + + + + | BUN | 21Comment: Testing | 8 - 25 mg/dL | EXTERNAL | | | | performed at [facility], [address] | | LAB | | | | [address], | | | | | | [place] [address] | | | | + + + + + + | Creatinine | 0.87Comment: Testing | 0.50 - 1.00 | EXTERNAL | | | | performed at [facility], [address] | mg/dL | LAB | | | | [address], | | | | | | [place] [address] | | | | + + + + + + | BUN/Creatin | 24Comment: Testing | | EXTERNAL | | | ine Ratio | performed at [facility], [address] | | LAB | | | | [address], | | | | | | [place] [address] | | | | + + + + + + | Calcium | 8.5Comment: Testing | 8.5 - 10.2 | EXTERNAL | | | | performed at [facility], [address] | mg/dL | LAB | | | | [facility], | | | | | | [place] [address] | | | | + + + [...] | | | | | | at [facility], [address] | | | | | | [facility], | | | | | | [place] [address] | | | | + + + [...] | | EXTERNAL | | | | [facility];[address] | | LAB | | | | Blvd;[place] [address] | | | | + + + + + + | Antibody | NEGATIVE | | EXTERNAL | | | Screen | | | LAB | | + + + + + + | Antibody | Testing performed at | | EXTERNAL | | | Screen | [facility] | | LAB | | | | [address];[place] [address] | | | | + + + + + + | BB BAND | [id number] | | EXTERNAL | | | | | | LAB | | + + + + + + | BB BAND | Testing performed at | | EXTERNAL | | | | [facility] | | LAB | | | | [address];[place] [address] | | | | + + + [...]
--- OUTSIDE RECORDS SUMMARY | ~2019-05-05 | XMS | Encounter Summary ---
Demographics + + + | Address | [address] | | | [place] [address] | + + + | Home Phone [...] [place] | | | | | [address] | | + + + + + Care Team Providers + +------+ + | Care Boiler Blower Name | Role | Phone | + [...] + + | 08/03/ | Refill | [facility] [place] | Claudia, | Medication Refill | | 2016 | | PULMONARY [address] | Ayana Looney MD | | | | | [place], | | | | | | [place] [address] | | | | | | [phone] | | | +--------+--------+ + + + [...] | | | | | [place] [address] | | | | | | [phone] | | | | | | | | +--------+ + + + + | 06/08/ | Office | Physical Medicine | Rocky aSntos, | | | 2019 | Visit | and Rehabilitation | MD Nichole Landis | | | | | | [place] | | | | | | [address] | | | | | | | | +--------+ + + + + | 06/16/ | Appointment | Pulmonology | Eveline Jaffe | | 2019 | | | MD [address] | | | | | | [address] [place] | | | | | | [place] [address] | | | | | | [phone] | | | | | | | | +--------+ + + + + | 06/16/ | Office | Pulmonology | Eveline Jaffe | | | 2019 | Visit | | MD Raul [address] | | | | | | [address] [place] | | | | | | [place] [address] | | | | | | [phone] | | | | | | | | +--------+ + + + + | 08/24/ | Office | Cardiology | Anisha Lopez DO | | | 2019 | Visit | | [address] | | | | | | [place] | | | | | | [address] | | | | | | | | +--------+ + + + + documented as of this encounter Visit Diagnoses Not on filedocumented in this encounter"
--- OUTSIDE RECORDS SUMMARY | ~2019-05-05 | XMS | Encounter Summary ---
Demographics + + + | Address | [address] | | | [place] [address] | + + + | Home Phone [...] | [facility] [place] | | | and [place] | + + + | Organization | [facility] [place] | | | and [...] [place] | | | | | [address] | | + + + + + Care Team Providers + +------+ + | Care Harvest Crew Supervisor Name | Role | Phone | [...] + + | 08/11/ | Telephone | [facility] [place] | Offenstein, | Other (issues with | | 2014 | | CARDIOLOGY [address] | Ayana Looney MD | shortness of breath | | | | [place], | | and "panic attacks") | | | | [place] [address] | | | | | | [phone] | | | +--------+ + + + [...] | 2018 | Visit | | [address] | | | | | | [facility] | | | | | | [place] [address] | | | | | | [phone] | | | | | | | | +--------+ + + + + | 06/08/ | Office | Physical Medicine | Rocky Santos, | | | 2019 | Visit | and Rehabilitation | MD Nichole [address] | | | | | | [place] | | | | | | [address] | | | | | | | | +--------+ + + + + | 06/16/ | Appointment | Pulmonology | Eveline Jaffe | | 2019 | | | MD [address] | | | | | | [address] | | | | | | [place] [address] | | | | | | [phone] | | | | | | | | +--------+ + + + + | 06/16/ | Office | Pulmonology | Eveline Jaffe | | | 2019 | Visit | | MD [address] | | | | | | [address] [place] | | | | | | [place] [address] | | | | | | [phone] | | | | | | | | +--------+ + + + + | 08/24/ | Office | Cardiology | Anisha Lopez DO | | | 2020 | Visit | | [address] | | | | | | [place] | | | | | | [address] | | | | | | | | +--------+ + + + + documented as of this encounter Visit Diagnoses Not on filedocumented in this encounter
--- OUTSIDE RECORDS SUMMARY | ~2019-05-05 | XMS | Encounter Summary ---
Demographics + + + | Address | [address] | | | [place] [address] | + + + | Home Phone [...] [place] | | | | | [address] | | + + + + + Care Team Providers + +------+ + | Care Rubberizing Mechanic Name | Role | Phone | [...] Malignant | Jimmy C, DO | [place] | | | | | neoplasm of | [address] | [place], | | | | | lower lobe | [address] | [place] [address] | | | | | of right | [place], | Phone: | | | | | lung (HCC) | [place] [address] | [phone] | | | | | Procedures | Phone: | Fax: | | | | | CT Chest w | [phone] | [phone] | | | | | Contrast | Fax: | | | | | | | [phone] | | +--------+--------+ + + + + [...] Malignant | Jimmy C, DO | [place] | | | | | neoplasm of | [address] | [place], | | | | | lower lobe | [address] | [place] [address] | | | | | of right | [place], | Phone: | | | | | lung (HCC) | [place] [address] | [phone] | | | | | Procedures | Phone: | Fax: | | | | | CT Chest w | [phone] | [phone] | | | | | Contrast | Fax: | | | | | | | [phone] | | +--------+--------+ + + + + Encounter Details +--------+ + + + + | Date | Type | Department | Care Team | Description | +--------+ + + + + | 03/28/ | Hospital | [facility] | Jimmy Banegas DO | Malignant neoplasm | | 2015 | Encounter | [facility] [address] | [address] | of lower lobe of | | | | [place], | [place], [place] | right lung (HCC) | | | | [place] [address] | [address] | | | | | [phone] | | | +--------+ + + + [...] | 2018 | Visit | | [address] | | | | | | [address] | | | | | | [place] [address] | | | | | | [phone] | | | | | | | | +--------+ + + + + | 06/08/ | Office | Physical Medicine | Rocky Santos, | | | 2019 | Visit | and Rehabilitation | MD Nichole [address] | | | | | | [place] | | | | | | [address] | | | | | | | | +--------+ + + + + | 06/16/ | Appointment | Pulmonology | Eveline Jaffe | | | 2019 | | | MD [address] | | | | | | [address] [place] | | | | | | [place] [address] | | | | | | [phone] | | | | | | | | +--------+ + + + + | 06/16/ | Office | Pulmonology | Eveline Jaffe | | | 2019 | Visit | | MD Nichole Carter | | | | | | [address] [place] | | | | | | [place] [address] | | | | | | [phone] | | | | | | | | +--------+ + + + + | 08/24/ | Office | Cardiology | Lopez, Anisha, DO | | | 2019 | Visit | | [address] | | | | | | [place] | | | | | | [address] | | | | | | | [...] August 29, 2014, June 08, 2014 (from [facility]), and | | June 09, 2013.TECHNIQUE: Axial [...]
--- OUTSIDE RECORDS SUMMARY | ~2019-05-05 | XMS | Encounter Summary ---
Demographics + + + | Address | [address] | | | [place] [address] | + + + | Home Phone [...] [place] | | | | | [address] | | + + + + + Care Team Providers + +------+ + | Care External Relations Manager Name | Role | Phone | [...] + + | 10/07/ | Telephone | [facility] | Melony Dhaliwal, | Other | | 2013 | | MED CTR MEDICAL | RN | | | | | [facility]OGY CLINIC [address] | | | | | | [address] | | | | | | [place] [address] | | | | | | [phone] | | | +--------+ + + + [...] W | | | | | | [facility] | | | | | | [place] [address] | | | | | | [phone] | | | | | | | | +--------+ + + + + | 06/08/ | Office | Physical Medicine | Rocky Santos, | | | 2019 | Visit | and Rehabilitation | [address] | | | | | | [place] | | | | | | [address] | | | | | | | | +--------+ + + + + | 06/16/ | Appointment | Pulmonology | Eveline Jaffe | | | 2019 | | | MD [address] | | | | | | [address] [place] | | | | | | [place], [place] [address] | | | | | | [phone] | | | | | | | | +--------+ + + + + | 06/16/ | Office | Pulmonology | Eveline Jaffe | | | 2019 | Visit | | MD [address] | | | | | | [address] [place] | | | | | | [place] [address] | | | | | | [phone] | | | | | | | | +--------+ + + + + | 08/24/ | Office | Cardiology | Anisha Lopez DO | | | 2019 | Visit | | [address] | | | | | | [place] | | | | | | [address] | | | | | | | | +--------+ + + + + documented as of this encounter Visit Diagnoses Not on filedocumented in this encounter"
--- OUTSIDE RECORDS SUMMARY | ~2019-05-05 | XMS | Encounter Summary ---
Demographics + + + | Address | [address] | | | [place] [address] | + + + | Home Phone [...] | Author | [facility] [place] | | | and [place] | + + + | Organization | [facility] [place] | | [...] [place] | | | | | [address] | | + + + + + Care Team Providers + +------+ + | Care Field Service Coordinator Name | Role | Phone | [...] | 09/20/ | Telephone | [facility] | Adelita Lu MD | Other | | 2014 | | MED CTR MEDICAL | [address] [facility] | | | | | ONCOLOGY CLINIC [address] | [place] | | | | | [address] [facility] | [address] | | | | | [place] [address] | [phone] | | | | | [phone] | | | +--------+ + + + [...] W | | | | | | [facility] | | | | | | [place] [address] | | | | | | [phone] | | | | | | | | +--------+ + + + + | 06/08/ | Office | Physical Medicine | Rocky Santos, | | | 2019 | Visit | and Rehabilitation | [address] | | | | | | [place] | | | | | | [address] | | | | | | | | +--------+ + + + + | 06/16/ | Appointment | Pulmonology | Eveline Jaffe | | | 2019 | | | MD [address] | | | | | | [address] [place] | | | | | | [place] [address] | | | | | | [phone] | | | | | | | | +--------+ + + + + | 06/16/ | Office | Pulmonology | Eveline Jaffe | | | 2019 | Visit | | MD [address] | | | | | | [address] | | | | | | [place], [place] [address] | | | | | | [phone] | | | | | | | | +--------+ + + + + | 08/24/ | Office | Cardiology | Anisha Lopez DO | | | 2019 | Visit | | [address] | | | | | | [place] | | | | | | [address] | | | | | | | | +--------+ + + + + documented as of this encounter Visit Diagnoses Not on filedocumented in this encounter"
--- OUTSIDE RECORDS SUMMARY | ~2019-05-05 | XMS | Encounter Summary ---
Demographics + + + | Address | [address] | | | [place] [address] | + + + | Home Phone [...] [place] | | | | | [address] | | + + + + + Care Team Providers + +------+ + | Care Java Spring Developer Name | Role | Phone | [...] Looney MD | | | | | [place], | | | | | | [place] [address] | | | | | | [phone] | | | +--------+ + + + [...] | | | | | [place] [address] | | | | | | [phone] | | | | | | | | +--------+ + + + + | 06/08/ | Office | Physical Medicine | Rocky Santos, | | | 2019 | Visit | and Rehabilitation | MD [address] | | | | | | [place] | | | | | | [address] | | | | | | | | +--------+ + + + + | 06/16/ | Appointment | Pulmonology | Eveline Jaffe | | 2019 | | | MD [address] | | | | | | [address] | | | | | | [place] [address] | | | | | | [phone] | | | | | | | | +--------+ + + + + | 06/16/ | Office | Pulmonology | Evleine Jaffe | | | 2019 | Visit | | MD Raul [address] | | | | | | [address] | | | | | | [place] [address] | | | | | | [phone] | | | | | | | | +--------+ + + + + | 08/24/ | Office | Cardiology | Anisha Lopez DO | | | 2019 | Visit | | [address] | | | | | | [place] | | | | | | [address] | | | | | | | | +--------+ + + + + documented as of this encounter Visit Diagnoses + + | Diagnosis | + + | Cough - Primary | + + documented in this encounter"
--- OUTSIDE RECORDS SUMMARY | ~2019-05-05 | XMS | Encounter Summary ---
Demographics + + + | Address | [address] | | | [place] [address] | + + + | Home Phone [...] [place] | | | | | [address] | | + + + + + Care Team Providers + +------+ + | Care Sand Conditioner Name | Role | Phone | + +------+ + | Davis Ivan MD | PCP | | + +------+ + Encounter Details +--------+ + + + + | Date | Type | Department | Care Team | Description | +--------+ + + + + | 12/16/ | Hospital | [facility] | Giuliano Padilla, | Left hand pain | | 2018 | Encounter | MED CTR [facility] | MD Solo [facility] | | | | | [address] | [place] | | | | | [place] | [address] | | | | | [address] | | | | | | [phone] | | | +--------+ + + + [...] | | | | | type ([facility]) | | | | | [...] | | | | | [place] [address] | | | | | | [phone] | | | | | | | | +--------+ + + + + | 06/08/ | Office | Physical Medicine | Rocky Santos, | | | 2019 | Visit | and Rehabilitation | MD [address] | | | | | | [place] | | | | | | [phone] | | | | | | | | +--------+ + + + + | 06/16/ | Appointment | Pulmonology | Eveline Jaffe | | | 2019 | | | MD [address] | | | | | | [address] [place] | | | | | | [place] [address] | | | | | | [phone] | | | | | | | | +--------+ + + + + | 06/16/ | Office | Pulmonology | Eveline Jaffe | | | 2019 | Visit | | MD Nichole Carter | | | | | | [address] | | | | | | [place] [address] | | | | | | [phone] | | | | | | | | +--------+ + + + + | 08/24/ | Office | Cardiology | Anisha Lopez DO | | 2019 | Visit | | [address] | | | | | | [place] | | | | | | [id number] | | | | | | | [...]
--- OUTSIDE RECORDS SUMMARY | ~2019-05-05 | XMS | Encounter Summary ---
Demographics + + + | Address | [address] | | | [place] [address] | + + + | Home Phone [...] [place] | | | | | [address] | | + + + + + Care Team Providers + +------+ + | Care Manager Beauty Name | Role | Phone | + [...] | pulmonary disease, | | | | [place], | | unspecified COPD | | | | [place] [address] | | type (HCC) | | | | [phone] | | | +--------+ + + + [...] W | | | | | | [facility] | | | | | | [place] [address] | | | | | | [phone] | | | | | | | | +--------+ + + + + | 06/08/ | Office | Physical Medicine | Rocky Santos, | | | 2019 | Visit | and Rehabilitation | [address] | | | | | | [place] | | | | | | [address] | | | | | | | | +--------+ + + + + | 01/16/ | Appointment | Pulmonology | Eveline Jaffe | | | 2019 | | | MD Nichole Carter W | | | | | | [address] | | | | | | [place] [address] | | | | | | [phone] | | | | | | | | +--------+ + + + + | 06/16/ | Office | Pulmonology | Eveline Jaffe | | | 2019 | Visit | | MD Nichole Carter W | | | | | | [address] | | | | | | [place] [address] | | | | | | [phone] | | | | | | | | +--------+ + + + + | 08/24/ | Office | Cardiology | Anisha Lopez DO | | 2019 | Visit | | [address] | | | | | | [place] | | | | | | [address] | | | | | | | | +--------+ + + + + documented as of this encounter Visit Diagnoses + + | Diagnosis | + + | Chronic obstructive pulmonary disease, unspecified COPD type (HCC) | + + documented in this encounter"
--- OUTSIDE RECORDS SUMMARY | ~2019-05-05 | XMS | Encounter Summary ---
Demographics + + + | Address | [address] | | | [place] [address] | + + + | Home Phone [...] [place] | | | | | [address] | | + + + + + Care Team Providers + +------+ + | Care [employer] Consultant Name | Role | Phone | + +------+ + | Caitlin Chino MD | PCP | | + +------+ + Encounter Details +--------+ + + + + | Date | Type | Department | Care Team | Description | +--------+ + + + + | 04/18/ | Abstract | [facility] | Provider, | | | 2019 | | PHYSIATRY [address] | [address] | | | | | [place], | [place] | | | | | [place] [address] | [place] [address] | | | | | [phone] | | | +--------+ + + + [...] | | | | | [place] [address] | | | | | | [phone] | | | | | | | | +--------+ + + + + | 06/08/ | Office | Physical Medicine | Rocky Santos, | | | 2019 | Visit | and Rehabilitation | [address] | | | | | | [place] | | | | | | [address] | | | | | | | | +--------+ + + + + | 06/16/ | Appointment | Pulmonology | Eveline Jaffe | | 2019 | | | MD [address] | | | | | | [place] [address] | | | | | | [place] [address] | | | | | | [phone] | | | | | | | | +--------+ + + + + | 06/16/ | Office | Pulmonology | Eveline Jaffe | | | 2019 | Visit | | MD Raul [address] | | | | | | [place] | | | | | | [place] [address] | | | | | | [phone] | | | | | | | | +--------+ + + + + | 08/24/ | Office | Cardiology | Anisha Lopez DO | | | 2019 | Visit | | [address] | | | | | | [place] | | | | | | [address] | | | | | | | | +--------+ + + + + documented as of this encounter Visit Diagnoses Not on filedocumented in this encounter"
--- OUTSIDE RECORDS SUMMARY | ~2019-05-05 | XMS | Encounter Summary ---
Demographics + + + | Address | [address] | | | [place] [address] | + + + | Home Phone [...] [place] | | | | | [address] | | + + + + + Care Team Providers + +------+ + | Care Health Education Teacher Name | Role | Phone | + +------+ + | Davis Ivan MD | PCP | | + +------+ + Encounter Details +--------+ + + + + | Date | Type | Department | Care Team | Description | +--------+ + + + + | 06/26/ | Hospital | [facility] [place] | Conversion | Pain | | 2015 | Encounter | CONVERSION [address]P [address] | Transaction, | | | | | [address] | Provider Unknown | | | | | [place] | [phone] | | | | | [address] | | | | | | [phone] | | | +--------+ + + + [...] | | | | | [place] [address] | | | | | | [phone] | | | | | | | | +--------+ + + + + | 06/08/ | Office | Physical Medicine | Rocky Santos, | | | 2019 | Visit | and Rehabilitation | [address] | | | | | | [place] | | | | | | [address] | | | | | | | | +--------+ + + + + | 06/16/ | Appointment | Pulmonology | Eveline Jaffe | | | 2019 | | | MD [address] | | | | | | [address] [place] | | | | | | [place] [address] | | | | | | [phone] | | | | | | | | +--------+ + + + + | 06/16/ | Office | Pulmonology | Eveline Jaffe | | | 2019 | Visit | | MD [address] | | | | | | [address] [place] | | | | | | [place] [address] | | | | | | [phone] | | | | | | | | +--------+ + + + + | 08/24/ | Office | Cardiology | Anisha Lopez DO | | | 2019 | Visit | | [address] | | | | | | [place] | | | | | | [address] | | | | | | | | +--------+ + + + + documented as of this encounter Procedures + +--------+ + + + | Procedure Name | Priori | Date/Time | Associated Diagnosis | Comments | | | ty | | | | + +--------+ + + + | CT CERVICAL SPINE WO | Routin | 06/16/2014 | | Results for this | | CONTRAST | e | 11:39 PM | | procedure are in the | | | | PST | | results section. | + +--------+ + + + documented in this encounter Results CT Cervical Spine wo Contrast (06/16/2014 11:39 PM PST) + + | Specimen | [...] + | Fabián, Rad Conversion - 01/14/2019 3:09 AM PDT This is a non-reportable procedure | | without a radiologist report and isused for image storage only | + + documented in this encounter Visit Diagnoses + + | Diagnosis | + + | Pain Generalized pain | + + documented in this encounter"
--- OUTSIDE RECORDS SUMMARY | ~2019-05-05 | XMS | Encounter Summary ---
Demographics + + + | Address | [address] | | | [place] [address] | + + + | Home Phone | | + + + | Preferred Language | Unknown | + + + | Marital Status | | + + + | Congregation Affiliation | Unknown | + + + [...] [place] | | | | | [address] | | + + + + + Care Team Providers + +------+ + | Care Metal Fitter Name | Role | Phone | + +------+ + | Davis Ivan MD | PCP | | + +------+ + Reason for Visit + + + | Reason | Comments | + + + | Annual Exam | | + + + Encounter Details +--------+ + + + + | Date | Type | Department | Care Team | Description | +--------+ + + + + | 08/18/ | [facility] | [facility] | Adelita Lu MD | Annual Exam | | 2013 | | MED CTR MEDICAL | [address] [facility] | | | | | [facility]OGY CL[facility] [address] | [place] | | | | | [address] | [address] | | | | | [place] [address] | [phone] | | | | | [phone] | | | +--------+ + + + [...] | | | | | [place] [address] | | | | | | [phone] | | | | | | | | +--------+ + + + + | 06/08/ | Office | Physical Medicine | Rocky Santos, | | | 2019 | Visit | and Rehabilitation | [address] | | | | | | [place] | | | | | | [address] | | | | | | | | +--------+ + + + + | 06/16/ | Appointment | Pulmonology | Eveline Jaffe | | | 2019 | | | MD [address] | | | | | | [address] [place] | | | | | | [place] [address] | | | | | | [phone] | | | | | | | | +--------+ + + + + | 06/16/ | Office | Pulmonology | Eveline Jaffe | | | 2019 | Visit | | MD [address] | | | | | | [address] [place] | | | | | | [place] [address] | | | | | | [phone] | | | | | | | | +--------+ + + + + | 08/24/ | Office | Cardiology | Anisha Lopez DO | | | 2019 | Visit | | [address] | | | | | | [place] | | | | | | [address] | | | | | | | | +--------+ + + + + documented as of this encounter Results PFT PULMONARY FUNCTION TESTING ORDERS Full PFT (Villanueva w/BD, lung volumes, diffusion)?: Yes; Spirometry?: Yes; [...] signed by: Ayana Taylor MD 09/01/2013 6:07 [facility] | | | [facility] CC: Davis Ivan | | | [...] Taylor MD 09/01/2013 6:07[facility] | [facility] | [facility] | | | |CC: Davis Ivan | + + documented in this encounter Visit Diagnoses + + | Diagnosis | + + | Lung cancer (HCC) - Primary Malignant neoplasm of bronchus and lung, unspecified site | + + documented in this encounter"
--- OUTSIDE RECORDS SUMMARY | ~2019-05-05 | XMS | Encounter Summary ---
Demographics + + + | Address | [address] | | | [place] [address] | + + + | Home Phone [...] [place] | | | | | [address] | | + + + + + Care Team Providers + +------+ + | Care Fur Examiner Name | Role | Phone | + [...] Description | +--------+--------+ + + + | 08/23/ | Refill | [facility] | Offenstein, | Medication Refill | | 2014 | | PULMONARY [address] | Ayana Looney MD | | | | | [place], | | | | | | [place] [address] | | | | | | [phone] | | | +--------+--------+ + + + [...] | | | | | [place] [address] | | | | | | [phone] | | | | | | | | +--------+ + + + + | 06/08/ | Office | Physical Medicine | Rocky Santos, | | | 2019 | Visit | and Rehabilitation | [address] | | | | | | [place] | | | | | | [address] | | | | | | | | +--------+ + + + + | 06/16/ | Appointment | Pulmonology | Eveline Jaffe | | | 2019 | | | MD [address] | | | | | | [address] [place] | | | | | | [place] [address] | | | | | | [phone] | | | | | | | | +--------+ + + + + | 06/16/ | Office | Pulmonology | Eveline Jaffe | | | 2019 | Visit | | MD [address] | | | | | | [address] [place] | | | | | | [place] [address] | | | | | | [phone] | | | | | | | | +--------+ + + + + | 08/24/ | Office | Cardiology | Anisha Lopez DO | | | 2019 | Visit | | [address] | | | | | | [place] | | | | | | [address] | | | | | | | | +--------+ + + + + documented as of this encounter Visit Diagnoses Not on filedocumented in this encounter"
--- OUTSIDE RECORDS SUMMARY | ~2019-05-05 | XMS | Encounter Summary ---
Demographics + + + | Address | [address] | | | [place] [address] | + + + | Home Phone [...] [place] | | | | | [address] | | + + + + + Care Team Providers + +------+ + | Care Telephoto Engineer Name | Role | Phone | + +------+ + | Caitlin Chino MD | PCP | | + +------+ + Encounter Details +--------+ + + + + | Date | Type | Department | Care Team | Description | +--------+ + + + + | 03/16/ | Hospital | [facility] | Soilacurtis Eveline | Chronic obstructive | | 2018 | Encounter | MED CTR PULMONARY | MD Raul [address] | pulmonary disease, | | | | FUNCTION [address] | [address] [place] | unspecified COPD | | | | [place], | [place] [address] | type (HCC) | | | | [place] [address] | [phone] | | | | | [phone] | | | +--------+ + + + [...] | | | | | | type ([facility]) | | | | | | [...] | | | | | | type ([facility]) | | | | | | [...] | | | | | [place] [address] | | | | | | [phone] | | | | | | | | +--------+ + + + + | 06/08/ | Office | Physical Medicine | Rocky Santos, | | | 2019 | Visit | and Rehabilitation | [address] | | | | | | [place] | | | | | | [address] | | | | | | | | +--------+ + + + + | 06/16/ | Appointment | Pulmonology | Eveline Jaffe | | | 2019 | | | MD [address] | | | | | | [address] [place] | | | | | | [place] [address] | | | | | | [phone] | | | | | | | | +--------+ + + + + | 06/16/ | Office | Pulmonology | Eveline Jaffe | | | 2019 | Visit | | MD [address] | | | | | | [address] [place] | | | | | | [place] [address] | | | | | | [phone] | | | | | | | | +--------+ + + + + | 08/24/ | Office | Cardiology | Anisha Lopez DO | | | 2019 | Visit | | [address] | | | | | | [place] | | | | | | [address] | | | | | | | [...]
--- OUTSIDE RECORDS SUMMARY | ~2019-05-05 | XMS | Encounter Summary ---
Demographics + + + | Address | [address] | | | [place] [address] | + + + | Home Phone [...] [place] | | | | | [address] | | + + + + + Care Team Providers + +------+ + | Care Greenhouse Superintendent Name | Role | Phone | + +------+ + | Davis Ivan MD | PCP | | + +------+ + Encounter Details +--------+ + + + + | Date | Type | Department | Care Team | Description | +--------+ + + + + | 03/17/ | Hospital | [facility] | Conversion | | | 2014 | Encounter | [facility] | Transaction, | | | | | [address] | Provider Unknown | | | | | [facility] [place] | | | | | | [address] | (Fax) | | | | | [phone] | | | +--------+ + + + [...] | | | | | [place] [address] | | | | | | [phone] | | | | | | | | +--------+ + + + + | 06/08/ | Office | Physical Medicine | Rocky Santos, | | | 2019 | Visit | and Rehabilitation | [address] | | | | | | [place] | | | | | | [address] | | | | | | | | +--------+ + + + + | 06/16/ | Appointment | Pulmonology | Eveline Jaffe | | 2019 | | | MD [address] | | | | | | [address] | | | | | | [place] [address] | | | | | | [phone] | | | | | | | | +--------+ + + + + | 06/16/ | Office | Pulmonology | Eveline Jaffe | | | 2019 | Visit | | MD Raul [address] | | | | | | [address] | | | | | | [place] [address] | | | | | | [phone] | | | | | | | | +--------+ + + + + | 08/24/ | Office | Cardiology | Anisha Lopez DO | | | 2019 | Visit | | [address] | | | | | | [place] | | | | | | [id number] | | | | | | | | +--------+ + + + + documented as of this encounter Visit Diagnoses Not on filedocumented in this encounter"
--- OUTSIDE RECORDS SUMMARY | ~2019-05-05 | XMS | Encounter Summary ---
Demographics + + + | Address | [address] | | | [place] [address] | + + + | Home Phone [...] [place] | | | | | [address] | | + + + + + Care Team Providers + +------+ + | Care Hoe Runner Name | Role | Phone | + +------+ + | Davis Ivan MD | PCP | | + +------+ + Encounter Details +--------+ + + + + | Date | Type | Department | Care Team | Description | +--------+ + + + + | 09/14/ | Hospital | [facility] | Adelita Lu MD | Squamous cell | | 2013 | Encounter | MED CTR MEDICAL | [address] | carcinoma lung, | | | | ONCOLOGY CLINIC [address] | [place] | right (HCC) (Primary | | | | [address] | [address] | Dx); Acute | | | | [place] [address] | [phone] | sinusitis | | | | [phone] | | | +--------+ + + + [...] + + + | Blood Pressure | 119/72 | 09/14/2013 1:54 PM | | | | | PDT | | + + + + + | Pulse | 71 | 09/14/2013 1:54 PM | | | | | PDT | | + + + + + | Temperature | 36.9 C (98.4 F) | 09/14/2013 1:54 PM | | | | | PDT | | + + + + + | Respiratory Rate | - | - | | + + + + + | Oxygen Saturation | 94% | 09/14/2013 1:54 PM | | | | | PDT | | + + + + + | Inhaled Oxygen | - | - | | | Concentration | | | | + + + + + | Weight | 70 kg (154 lb 5.2 | 09/14/2013 1:54 PM | | | | oz) | PDT | | + + + + + | Height | 160 cm (5' 2.99") | 09/14/2013 1:54 PM | | | | | PDT | | + + + + + | Body Mass Index | 27.34 | 09/14/2013 1:54 PM | | | | | PDT [...] | | Take 1 tablet by | 14 | 0 | 09/15/19 | | | amoxicillin-clavulan | mouth 2 times daily | tablet | | 14 | 4 | | ate (AUGMENTIN) | for 7 days. | | | | | | 875-125 mg per | | | | | | | tabletIndications: | | | | | | | Acute sinusitis | | | | | | + [...] documented as of this encounter Progress Notes Melony Dhaliwal RN - 09/14/2013 2:06 PM PDTHere for follow up. She states that she is having surgery in [place] with Dr. Mace on 09/16/13. REVIEW OF SYSTEMS Constitutional:Energy is low, just occasional spurts. Denies high fevers, shaking chills, a norexia, nausea, vomiting, weight loss. Report night sweats every night. Sometimes during the day she has sweats. Ear, Nose, Mouth, Throat: Denies odynophagia, dysphagia. Occasional Left ear Tinnitus. Fernando mares has a sore throat today. Cardiovascular: Complains of shortness of breath, dyspnea on exertion. No chest pain, pal pitations or orthopnea. Respiratory: Occasional cough, no hemoptysis, or sputum is greenish. Gastrointestinal: Denies abdominal pain, constipation, diarrhea, melena, or bright red bloo d per rectum. Genitourinary: Denies hematuria or dysuria. Musculoskeletal: Complains of joint pain and tenderness. Neurologic: Denies visual changes, or numbness/tingling of the extremities.Complains of he adache this past week. Endocrine: Denies peripheral edema or heat/cold intolerance. Hematologic: She is on plavix and has a hard time stopping bleeding. She has lots of bruis es. Pain: 8-9/10 joint aching. Adelita iDas MD - 09/14/2013 9:25 AM PDT Hem-Onc Progress Note [facility] Patient name:Thea Carmona : 1945 Age: 68 y.o. CSN: [id number] Date of Service: 09/14/2013 Identifying Statement: Thea Carmona is a 68 y.o. female from [facility] with clinical stage II non-small cell lung cancer (squamous cell). Active Diagnoses:1.Initially seen by Dr. blandon in March 2013 [...] by Dr. Mace , thoracic surgeon at [facility] for consideration of broncho scopy, right thoracoscopy, thoracic lymphadenectomy to rule out N2 disease, probable lower l obectomy, possible thoracotomy . Date: September 16, 2013, Chief Complaint/HPI here for regular followup Current Review of Systems: Constitutional:Energy is low, just occasional spurts. Denies high fevers, shaking chills, a norexia, nausea, vomiting, weight loss. Report night sweats every night. Sometimes during e day she has sweats. Ear, Nose, Mouth, Throat: Denies odynophagia, dysphagia. Occasional Left ear Tinnitus. She has a sore throat today. Cardiovascular: Complains of shortness of breath, dyspnea on exertion. No chest pain, palpi tations or orthopnea. Respiratory: Occasional cough, no hemoptysis, or sputum is greenish. Gastrointestinal: Denies abdominal pain, constipation, diarrhea, melena, or bright red bloo d per rectum. Genitourinary: Denies hematuria or dysuria. Musculoskeletal: Complains of joint pain and tenderness. Neurologic: Denies visual changes, or numbness/tingling of the extremities.Complains of hea dache this past week. Endocrine: Denies peripheral edema or heat/cold intolerance. Hematologic: She is on plavix and has a hard time stopping bleeding. She has lots of bruise s. Pain: 8-9/10 joint aching. Appropriate portions of the patient's past medical, surgical, family, and social history we re reviewed and updated.in EMR Past medical history: COPD, spinal stenosis, stroke AllergieS and current medications were reviewed in EMR Physical Exam: Vitals:Temp: [36.9 C (98.4 F)] 36.9 C (98.4 F) Pulse: [71] 71 BP: (119)/(72) 119/72 mmHg Gen.: Performance status ECoG 1 . Well nourished, appears well not in apparent distress. Eyes: PERRLA, EOMI, conjunctiva clear, sclera anicteric. HEENT: Oropharynx clear. Chest: Clear to auscultation. Cardiac: S1-S2 present regular rate rhythm. No murmur rub gallop. Extremities: No edema, cyanosis, clubbing. Musculoskeletal: No deformities. Psychiatrc: Good mood, cognition and memory are grossly intact. LABORATORY DATA: No results found for this or any previous visit (from the past 24 hour(s) ). IMAGING: MRI brain 09/02/2013: Prominent perivascular spaces and white matter changes sugges tive of chronic microvessel ischemic gliotic changes of senescence, without evidence of abnormal enhancement within the brain parenchyma to suggest presence of metastatic disease. IMPRESSION 1. Clinical Stage: IIa, (T2a N1 M0) squamous cell carcinoma of the right lower lobe. 2. Rheumatoid arthritis on methotrexate. 3.Hx of strokes in 2005 and 2006 on Plavix and ASA 4.Impaired performance status due to rheumatoid arthritis and spinal stenosis 5.acute sinusitis PLAN: Prescription of Augmentin 875 mg by mouth twice a day for 7 days sent to pharmacy. Thoracic surgery [facility] records reviewed. Results the brain MRI discussed with her which did show presence of mastoiditis Total time face to face discussion with the patient and family was 25 minutes, more than 50 % of the time was spent counseling and coordination of care. Adelita Lu MD Portions of this chart may have been created with [employer] voice recognition software. Occasi onal wrong-word or [...] | 2018 | Visit | | [address] | | | | | | [facility] | | | | | | [place] [address] | | | | | | [phone] | | | | | | | | +--------+ + + + + | 06/08/ | Office | Physical Medicine | Rocky Santos, | | | 2019 | Visit | and Rehabilitation | MD [address] | | | | | | [place] | | | | | | [address] | | | | | | | | +--------+ + + + + | 06/16/ | Appointment | Pulmonology | Eveline Jaffe | | 2019 | | | MD [address] | | | | | | [address] [place] | | | | | | [place] [address] | | | | | | [phone] | | | | | | | | +--------+ + + + + | 06/16/ | Office | Pulmonology | Eveline Jaffe | | | 2019 | Visit | | MD [address] | | | | | | [address] [place] | | | | | | [place] [address] | | | | | | [phone] | | | | | | | | +--------+ + + + + | 08/24/ | Office | Cardiology | Anisha Lopez DO | | | 2019 | Visit | | [address] | | | | | | [place] | | | | | | [address] | | | | | | | | +--------+ + + + + documented as of this encounter Visit Diagnoses + + | Diagnosis | + + | Squamous cell carcinoma lung, right (HCC) - Primary | + + | Acute sinusitis Acute sinusitis, unspecified | + + documented in this encounter
--- OUTSIDE RECORDS SUMMARY | ~2019-05-05 | XMS | Encounter Summary ---
Demographics + + + | Address | [address] | | | [place] [address] | + + + | Home Phone [...] [place] | | | | | [address] | | + + + + + Care Team Providers + +------+ + | Care Roller Turner Name | Role | Phone | + [...] | | squamous | Lokesh C, | [place] | | | | | cell | MD [address] | [place], [place] | | | | | carcinoma of | [address] | [address] | | | | | lung, right | [place], | Phone: | | | | | (HCC) | [place] [address] | [phone] | | | | | Procedures | Phone: | Fax: | | | | | PET CT Skull | [phone] | [phone] | | | | | Base To Mid | Fax: | | | | | | Thigh | [phone] | | +--------+--------+ + + + + [...] | | squamous | Lokesh C, | [place] | | | | | cell | MD [address] | [place], [place] | | | | | carcinoma of | [address] | [address] | | | | | lung, right | [place], | Phone: | | | | | (HCC) | [place] [address] | [phone] | | | | | Procedures | Phone: | Fax: | | | | | PET CT Skull | [phone] | [phone] | | | | | Base To Mid | Fax: | | | | | | Thigh | [phone] | | +--------+--------+ + + + + Encounter Details +--------+ + + + + | Date | Type | Department | Care Team | Description | +--------+ + + + + | 12/20/ | Hospital | [facility] | Vivian, | Recurrent squamous | | 2015 | Encounter | MED CTR PET SCAN | Lokesh Gramajo MD [address] | cell carcinoma of | | | | [address] [place] | [address] [place] | lung, right (HCC) | | | | [place] [address] | [place] [address] | | | | | [phone] | [phone] | | | | | | | [...] | | | | | [place] [address] | | | | | | [phone] | | | | | | | | +--------+ + + + + | 06/08/ | Office | Physical Medicine | Rocky Santos, | | | 2019 | Visit | and Rehabilitation | [address] | | | | | | [place] | | | | | | [address] | | | | | | | | +--------+ + + + + | 06/16/ | Appointment | Pulmonology | Eveline Jaffe | | | 2019 | | | MD [address] | | | | | | [address] [place] | | | | | | [place] [address] | | | | | | [phone] | | | | | | | | +--------+ + + + + | 06/16/ | Office | Pulmonology | Eveline Jaffe | | | 2019 | Visit | | MD [address] | | | | | | [address] [place] | | | | | | [place] [address] | | | | | | [phone] | | | | | | | | +--------+ + + + + | 08/24/ | Office | Cardiology | Anisha Lopez DO | | 2019 | Visit | | [address] | | | | | | [place] | | | | | | [address] | | | | | | | [...]
--- OUTSIDE RECORDS SUMMARY | ~2019-05-05 | XMS | Encounter Summary ---
Demographics + + + | Address | [address] | | | [place] [address] | + + + | Home Phone [...] [place] | | | | | [address] | | + + + + + Care Team Providers + +------+ + | Care Filling Machine Tender Name | Role | Phone [...] + + | 09/07/ | Office | [facility] | [place], | Cough (Primary Dx); | | 2014 | Visit | PULMONARY [address] | Ayana Looney MD | Leg edema, left; | | | | [place], | | COPD (chronic | | | | [place] [address] | | obstructive | | | | [phone] | | pulmonary disease); | | | [...] eating. Have upper GI test done at [facility] to see if you are [...] has a slight temperature yesterday when the [facility] nurse came by, she thinks in the [...] [facility]) on prednisone and methotrexate, Dr. Lewis [place] Hyperlipidemia on simvastatin Hypertension on clonidine and lisinopril Hypothyroidism GERD (gastroesophageal reflux disease) Stroke ([facility]) 2006 Stroke ([facility]) 2007 Squamous cell carcinoma of lung ([facility]) 07/2013 right lower lobe Sputum culture positive [...] EBUS with right hilar LN biopsy, [facility] Dr. 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 Heater [...] kg (152 lb 3.2 oz) | B SD 27.83 kg/m2 | SpO2 95% RA General [...] made to ensure accuracy; however, inadvertent computerized block cableman errors may be pre sent. documented in [...] | | | | | [place] [address] | | | | | | [phone] | | | | | | | | +--------+ + + + + | 06/08/ | Office | Physical Medicine | Rocky Santos, | | | 2019 | Visit | and Rehabilitation | MD [address] | | | | | | [place] | | | | | | [address] | | | | | | | | +--------+ + + + + | 06/16/ | Appointment | Pulmonology | Eveline Jaffe | | 2019 | | | MD [address] | | | | | | [place] | | | | | | [place] [address] | | | | | | [phone] | | | | | | | | +--------+ + + + + | 06/16/ | Office | Pulmonology | Ld Eveline | | | 2019 | Visit | | MD Raul [address] | | | | | | [place] | | | | | | [place] [address] | | | | | | [phone] | | | | | | | | +--------+ + + + + | 08/24/ | Office | Cardiology | Anisha Lopez DO | | | 2019 | Visit | | [address] | | | | | | [place] | | | | | | [address] | | | | | | | [...] | Claudia's nurse 1604 p.m. by the business development coordinator. Dictated and | | | Signed by: [...] Dr. Ayana Taylor's nurse 1604 p.m. bythe business development coordinator.Dictated and Signed by: | | Matheus Kapadia [...] Taylor's nurse 1604 p.m. by | |the business development coordinator. | | | |Dictated and Signed by: Matheus Kapadia MD | | Electronically signed: 09/07/2014 4:43 PM | + + + + + + + | Performing | Address | City/State/Zipcode | Phone Number | | Organization | | | | + + + + + | [facility] | [address] | [place] | [phone] | | [facility] | | [address] | | | - IMAGING | | [...]
--- OUTSIDE RECORDS SUMMARY | ~2019-05-05 | XMS | Encounter Summary ---
Demographics + + + | Address | [address] | | | [place] [address] | + + + | Home Phone [...] [place] | | | | | [address] | | + + + + + Care Team Providers + +------+ + | Care Apprenticeship Representative Name | Role | Phone | + +------+ + | Davis Ivan MD | PCP | | + +------+ + Encounter Details +--------+ + + + + | Date | Type | Department | Care Team | Description | +--------+ + + + + | 08/02/ | Hospital | [facility] | [place], | | | 2013 | Encounter | MED [facility] EMER[facility]ENCY | Lokesh Horvath MD [address] | | | | | [place] [address] | [facility] | | | | | [place], [place] | [place] [address] | | | | | [address] | [phone] | | | | | [phone] | | | +--------+ + + + [...] by mouth | | 0 | | 05/30/201 | | (DELTASONE) 5 mg | Daily. [...] | 2018 | Visit | | [address] | | | | | | [facility] | | | | | | [place] [address] | | | | | | [phone] | | | | | | | | +--------+ + + + + | 06/08/ | Office | Physical Medicine | Rocky Santos, | | | 2019 | Visit | and Rehabilitation | MD Nichole [address] | | | | | | [place] | | | | | | [address] | | | | | | | | +--------+ + + + + | 06/16/ | Appointment | Pulmonology | Eveline aJffe | | | 2019 | | | MD [address] | | | | | | [address] [place] | | | | | | [place] [address] | | | | | | [phone] | | | | | | | | +--------+ + + + + | 06/16/ | Office | Pulmonology | Eveline Jaffe | | | 2019 | Visit | | MD [address] | | | | | | [address] [place] | | | | | | [place] [address] | | | | | | [phone] | | | | | | | | +--------+ + + + + | 08/24/ | Office | Cardiology | Anisha Lopez DO | | | 2019 | Visit | | [address] | | | | | | [place] | | | | | | [address] | | | | | | | | +--------+ + + + + documented as of this encounter Visit Diagnoses Not on filedocumented in this encounter"
--- OUTSIDE RECORDS SUMMARY | ~2019-05-05 | XMS | Encounter Summary ---
Demographics + + + | Address | [address] | | | [place] [address] | + + + | Home Phone [...] [place] | | | | | [address] | | + + + + + Care Team Providers + +------+ + | Care Handhole Machine Operator Name | Role | Phone | + +------+ + | Davis Ivan MD | PCP | | + +------+ + Reason for Visit +--------+ + | Reason | Comments | +--------+ + | Other | Pre-Op Orders | +--------+ + Encounter Details +--------+ + + + + | Date | Type | Department | Care Team | Description | +--------+ + + + + | 07/28/ | Telephone | [facility] | Chalino Chiu | Other (Pre-Op | | 2015 | | SURGERY [address] | MD Brittanie, FACS [address] | Orders) | | | | [place], [place] | [address] | | | | | [address] | [place] [address] | | | | | [phone] | [phone] | | | | | | | [...] | | | | | [place] [address] | | | | | | [phone] | | | | | | | | +--------+ + + + + | 06/08/ | Office | Physical Medicine | Rocky Santos, | | | 2019 | Visit | and Rehabilitation | [address] | | | | | | [place] | | | | | | [address] | | | | | | | | +--------+ + + + + | 06/16/ | Appointment | Pulmonology | Eveline Jaffe | | | 2019 | | | MD [address] | | | | | | [address] [place] | | | | | | [place] [address] | | | | | | [phone] | | | | | | | | +--------+ + + + + | 06/16/ | Office | Pulmonology | Eveline Jaffe | | | 2019 | Visit | | MD [address] | | | | | | [address] [place] | | | | | | [place] [address] | | | | | | [phone] | | | | | | | | +--------+ + + + + | 08/24/ | Office | Cardiology | Anisha Lopez DO | | | 2019 | Visit | | [address] | | | | | | [place] | | | | | | [address] | | | | | | | | +--------+ + + + + documented as of this encounter Visit Diagnoses Not on filedocumented in this encounter"
--- OUTSIDE RECORDS SUMMARY | ~2019-05-05 | XMS | Encounter Summary ---
Demographics + + + | Address | [address] | | | [place] [address] | + + + | Home Phone [...] [place] | | | | | [address] | | + + + + + Care Team Providers + +------+ + | Care Survey Crew Chief Name | Role | Phone | [...] | | | | | | Epi [address]aston | [place], | | | | | | [place], | [place] [address] | | | | | | [place] [address] | Phone: | | | | | | Phone: | [phone] | | | | | | [phone] | Fax: | | | | | | Fax: | [phone] | | | | | | [phone] | | + +--------+ + + + + Encounter Details +--------+---------+ + + + | Date | Type | Department | Care Team | Description | +--------+---------+ + + + | 03/30/ | Office | [facility] | Rodney Worthy | Osteoarthritis of | | 2019 | Visit | ORTHOPEDIC SURGERY | MD [address] | right wrist, | | | | [address] [facility] | [facility] [address] | unspecified | | | | [place] | [place] [address] | osteoarthritis type | | | | [address] | [phone] | (Primary Dx); Right | | | | [phone] | | wrist pain; Chronic | | [...] documented as of this encounter Progress Notes Rodney Worthy MD - 03/30/2019 10:00 AM PDTFormatting of this note might be dif ferent from the original. [facility] RETURN CLINIC VISIT Pt. Name/Age/: Thea Carmona [...] Arrhythmia Arthritis COPD (chronic obstructive pulmonary disease) ([facility]) on albuterol Depression HANNAH (dyspnea on exertion) Full dentures upper & lower GERD (gastroesophageal reflux disease) Hyperlipidemia on simvastatin Hypertension on clonidine and lisinopril Hypothyroidism Obesity MARCE (obstructive sleep apnea) no CPAP Osteoporosis Pneumonia 2008 hospitalized 5 days Recurrent squamous cell carcinoma of lung ([facility]) 07/11/[address] and RUL nodule Rheumatoid arthritis(714.0) on prednisone and methotrexate, Dr. Lewis, [place] Spinal stenosis has tried cortisone injections Spondylolisthesis of cervical region Sputum culture positive for Scopulariopsis species Squamous cell carcinoma of lung ([facility]) 07/2013 right lower lobe Stroke ([facility]) 2006 Stroke ([facility]) 2007 left sided weakness Upper GI bleed 06/[address] [facility] Wears dentures Past Surgical History: Procedure Laterality Date BACK SURGERY 03/2014 BLADDER SUSPENSION BRONCHOSCOPY 07/11/2014 EBUS with right hilar LN biopsy, [facility] Dr. Sierra CERVICAL SPINE SURGERY 2012 CHOLECYSTECTOMY COLONOSCOPY 06/2014 ENDOSCOPY FINGER TRIGGER RELEASE Left 12/14/2018 Procedure: Left Thumb Trigger Finger Release, Left Index Trigger Finger Release, Left Long Trigger Finger Release, Left Ring Trigger Finger Release; Surgeon: Giuliano Padilla MD; Lo cation: [facility] MAIN OR HAND ARTHROPLASTY Left 03/20/2015 Procedure: Left 1st C.M.C. Arthroplasty; Surgeon: Giuliano Padilla MD; Location: [facility] MAIN OR HAND ARTHROPLASTY Right 10/27/2017 Procedure: Right 1st CMC Arthroplasty; Surgeon: Giuliano Padilla MD; Location: [facility] MAIN O R HYSTERECTOMY LOBECTOMY 09/16/13 right lower lobe LUNG BIOPSY 07/21/13 right lower lobe SHOULDER SURGERY SHOULDER SURGERY right shoulder THUMB SURGERY TONGUE SURGERY benign per pt TUNNELED VENOUS PORT PLACEMENT N/A 07/28/2014 Procedure: Port Placement; Surgeon: Chalino Chiu MD; Location: [facility] MAIN OR Allergies: No Known Allergies [...] Supplies (NEBULIZER/TUBING/MOUTHPIECE) KIT Use as directed with Yeexoo ulizer machine. 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 I think that is useful. Her pain [...] discussed with the patient. All of the jamilah baez's questions were answered regarding the procedure. Consent [...] made to ensure accuracy; however, inadvertent computerized production broacher errors may be pre sent. I appreciate [...] HEALTH | | | | | | [place] [address] | | | | | | [phone] | | | | | | | | +--------+ + + + + | 06/08/ | Office | Physical Medicine | Rocky Santos, | | | 2019 | Visit | and Rehabilitation | MD Nichole [address] | | | | | | [place] | | | | | | [address] | | | | | | | | +--------+ + + + + | 06/16/ | Appointment | Pulmonology | Eveline Jaffe | | 2019 | | | MD Nichole [address] | | | | | | [address] | | | | | | [place] [address] | | | | | | [phone] | | | | | | | | +--------+ + + + + | 06/16/ | Office | Pulmonology | Eveline Jaffe | | 2019 | Visit | | Sherrin, MD [address] | | | | | | [address] | | | | | | [place] [address] | | | | | | [phone] | | | | | | | | +--------+ + + + + | 08/24/ | Office | Cardiology | Anisha Lopez DO | | | 2019 | Visit | | [address] | | | | | | [place] | | | | | | [address] | | | | | | | [...]
--- OUTSIDE RECORDS SUMMARY | ~2019-05-05 | XMS | Encounter Summary ---
Demographics + + + | Address | [address] | | | [place] [address] | + + + | Home Phone [...] [place] | | | | | [address] | | + + + + + Care Team Providers + +------+ + | Care Finish Inspector Name | Role | Phone | [...] | +--------+ + + + + | 10/19/ | Telephone | [facility] [place] | [place], | Results | | 2014 | | PULMONARY [address] | Ayana Looney MD | | | | | [place], | | | | | | [place] [address] | | | | | | [phone] | | | +--------+ + + + [...] | | | | | [place] [address] | | | | | | [phone] | | | | | | | | +--------+ + + + + | 06/08/ | Office | Physical Medicine | Rocky Santos | | | 2019 | Visit | and Rehabilitation | [address] | | | | | | [place] | | | | | | [address] | | | | | | | | +--------+ + + + + | 06/16/ | Appointment | Pulmonology | Eveline Jaffe | | 2019 | | | MD [address] | | | | | | [address] [place] | | | | | | [place] [address] | | | | | | [phone] | | | | | | | | +--------+ + + + + | 06/16/ | Office | Pulmonology | Eveline Jaffe | | | 2019 | Visit | | MD [address] | | | | | | [address] [place] | | | | | | [place] [address] | | | | | | [phone] | | | | | | | | +--------+ + + + + | 08/24/ | Office | Cardiology | Anisha Lopez DO | | 2019 | Visit | | [address] | | | | | | [place] | | | | | | [address] | | | | | | | | +--------+ + + + + documented as of this encounter Visit Diagnoses Not on filedocumented in this encounter"
--- OUTSIDE RECORDS SUMMARY | ~2019-05-05 | XMS | Encounter Summary ---
Demographics + + + | Address | [address] | | | [place] [address] | + + + | Home Phone [...] [place] | | | | | [address] | | + + + + + Care Team Providers + +------+ + | Care Ios Architect Name | Role | Phone | + +------+ + | Davis Ivan MD | PCP | | + +------+ + Encounter Details +--------+ + + + + | Date | Type | Department | Care Team | Description | +--------+ + + + + | 02/07/ | Hospital | [facility] | [place], | COPD (chronic | | 2013 | Encounter | MED CTR PULMONARY | Ayana Looney MD | obstructive | | | | FUNCTION [address] | | pulmonary disease) | | | | [place], | | | | | | [place] [address] | | | | | | [phone] | | | +--------+ + + + [...] by mouth | | 0 | | 03/09/201 | | 2 mg tablet | nightly [...] | | | | | [place] [address] | | | | | | [phone] | | | | | | | | +--------+ + + + + | 06/08/ | Office | Physical Medicine | Rocky Santos, | | | 2019 | Visit | and Rehabilitation | MD [address] | | | | | | [place] | | | | | | [address] | | | | | | | | +--------+ + + + + | 06/16/ | Appointment | Pulmonology | Eveline Jaffe | | 2019 | | | MD Nichole [address] | | | | | | [address] [place] | | | | | | [place] [address] | | | | | | [phone] | | | | | | | | +--------+ + + + + | 06/16/ | Office | Pulmonology | Eveline Jaffe | | | 2019 | Visit | | MD Raul [address] | | | | | | [address] [place] | | | | | | [place] [address] | | | | | | [phone] | | | | | | | | +--------+ + + + + | 08/24/ | Office | Cardiology | Anisha Lopez DO | | | 2019 | Visit | | [address] | | | | | | [place] | | | | | | [address] | | | | | | | | +--------+ + + + + documented as of this encounter Procedures + +--------+ + + + | Procedure Name | Priori | Date/Time | Associated Diagnosis | Comments | | | ty | | | | + +--------+ + + + | PFT PULMONARY | ZEYNEP | 02/09/2014 | COPD (chronic | Results for this | | FUNCTION TESTING | | 9:04 AM | obstructive | procedure are in the | | ORDERS | | PDT | pulmonary disease) | results section. | + +--------+ + + + | PFT PULMONARY | ZEYNEP | 02/09/2014 | COPD (chronic | Results for this | | FUNCTION TESTING | | 9:04 AM | obstructive | procedure are in the | | ORDERS | | PDT | pulmonary disease) | results section. | + +--------+ + + + | PFT PULMONARY | ZEYNEP | 02/09/2014 | COPD (chronic | Results for this | | FUNCTION TESTING | | 9:04 AM | obstructive | procedure are in the | | ORDERS | | PDT | pulmonary disease) | results section. | + +--------+ + + + | PFT PULMONARY | ZENYEP | 02/09/2014 | COPD (chronic | Results for this | | FUNCTION TESTING | | 9:04 AM | obstructive | procedure are in the | | ORDERS | | PDT | pulmonary disease) | results section. | + +--------+ + + + | DIAGNOSTIC REPORT - | | 02/07/2014 | | | | EXTERNAL SCAN | | 12:00 AM | | | | | | PDT | | | + +--------+ + + + documented in this encounter Results PFT PULMONARY FUNCTION TESTING ORDERS Full PFT (Saxton w/BD, lung volumes, diffusion)?: Yes (02/09/2014 9:04 AM PDT) + + + | Narrative | Performed At | + + + | Ayana Taylor MD 02/09/2014 9:04 PULMONARY | | | FUNCTION TESTING METHOD: Spirometry was obtained pre and post | | | administration of inhaled bronchodilator. Lung volumes were obtained | | | by body plethysmography. Diffusion capacity was obtained by single | | | breath method and was corrected for a measured hemoglobin. ATS | | | standards were met. SPIROMETRY: Prior to administration of | | | inhaled bronchodilator, FVC was normal at 2.57 L or 94% of | | | predicted. FEV1 was mildly reduced at 1.64 L or 78% of predicted. | | | FEV1/FVC ratio was reduced at 64%. After administration of inhaled | | | bronchodilator, FVC increased by 10 % to 2.83 L or 104% of | | | predicted. FEV1 increased by 10 % to 1.81 L or 86% of predicted. | | | FEV1/FVC ratio was reduced at 64%. LUNG VOLUMES: Total lung | | | capacity was normal at 4.90 L or 101% of predicted. Residual volume | | | was normal at 2.30 L or 110% of predicted. RV/TLC ratio was normal | | | at 47% or 109 % of predicted. DIFFUSION CAPACITY: Diffusion | | | capacity was moderately reduced at 12.5 mL/mmHg per minute or 56% of | | | predicted and was corrected for a measured hemoglobin of 12.1 g/dL. | | | IMPRESSION: Spirometry is consistent with mild obstructive | | | physiology. There was not a significant response to inhaled | | | bronchodilator. Lung volume testing is normal. Diffusion capacity is | | | moderately reduced and is corrected for measured hemoglobin. | | | Compared to testing done in July of 2013, FVC has decreased by 3%, | | | FEV1 has increased by 26%, TLC has decreased by 6%, RV has decreased | | | by 10%, and diffusion capacity has decreased by 17%. Testing in | | | July was done prior to lobectomy. Electronically signed by: | | | Ayana Taylor MD 02/09/2014 9:00 [facility] | | | [facility] CC: Gurvinderescobarvivienne Ivan | | + + + + + | Procedure Note | + + | Ayana Taylor MD - 02/09/2014 9:00 AM PDT PULMONARY FUNCTION TESTING | | METHOD: Spirometry was obtained pre and post administration of inhaled bronchodilator. | | Lung volumes were obtained by body plethysmography. Diffusion capacity was obtained by | | single breath method and was corrected for a measured hemoglobin. ATS standards were | | met. SPIROMETRY: Prior to administration of inhaled bronchodilator, FVC was normal at | | 2.57 L or 94% of predicted. FEV1 was mildly reduced at 1.64 L or 78% of predicted. | | FEV1/FVC ratio was reduced at 64%. After administration of inhaled bronchodilator, FVC | | increased by 10 % to 2.83 L or 104% of predicted. FEV1 increased by 10 % to 1.81 L or | | 86% of predicted. FEV1/FVC ratio was reduced at 64%.LUNG VOLUMES: Total lung capacity | | was normal at 4.90 L or 101% of predicted. Residual volume was normal at 2.30 L or 110% | | of predicted. RV/TLC ratio was normal at 47% or 109 % of predicted. DIFFUSION CAPACITY: | | Diffusion capacity was moderately reduced at 12.5 mL/mmHg per minute or 56% of predicted | | and was corrected for a measured hemoglobin of 12.1 g/dL.IMPRESSION: Spirometry is | | consistent with mild obstructive physiology. There was not a significant response to | | inhaled bronchodilator. Lung volume testing is normal. Diffusion capacity is moderately | | reduced and is corrected for measured hemoglobin. Compared to testing done in July of | | 2013, FVC has decreased by 3%, FEV1 has increased by 26%, TLC has decreased by 6%, RV | | has decreased by 10%, and diffusion capacity has decreased by 17%. Testing in July was | | done prior to lobectomy. Electronically signed by: Ayana Taylor MD 02/09/2014 | | [facility] | [facility] | | | |CC: Davis Ivan [...] 2.5 mg/3 mL nebulizer | Given | 02/08/20 | 2.5 mg | | | | solution 2.5 mg 2.5 mg, | | 14 11:31 | | | | | Nebulization, RT Once, Raji 02/07/14 | | AM PDT | | | | | at 1200, For 1 dose, RT will | | | | | | | administer., | | | | | | + +--------+ +--------+------+------+ +---+---+ | | | +---+---+ documented in this encounter"
--- OUTSIDE RECORDS SUMMARY | ~2019-05-05 | XMS | Encounter Summary ---
Demographics + + + | Address | [address] | | | [place] [address] | + + + | Home Phone [...] [place] | | | | | [address] | | + + + + + Care Team Providers + +------+ + | Care Stucco Applicator Name | Role | Phone | + +------+ + | Caitlin Chino MD | PCP | | + +------+ + Encounter Details +--------+ + + + + | Date | Type | Department | Care Team | Description | +--------+ + + + + | 09/01/ | Orders Only | [facility] [place] | Gurmeet Vargas | Tachypnea | | 2019 | | PULMONARY [address] | MD [address] | | | | | [place], | [place] | | | | | [place] [address] | [place] [address] | | | | | [phone] | [phone] | | | | | | | [...] | | | | | [place] [address] | | | | | | [phone] | | | | | | | | +--------+ + + + + | 06/08/ | Office | Physical Medicine | Rocky Santos, | | | 2019 | Visit | and Rehabilitation | MD [address] | | | | | | [place] | | | | | | [address] | | | | | | | | +--------+ + + + + | 06/16/ | Appointment | Pulmonology | Eveline Jaffe | | 2019 | | | MD [address] | | | | | | [address] [address] | | | | | | [place] [address] | | | | | | [phone] | | | | | | | | +--------+ + + + + | 06/16/ | Office | Pulmonology | Eveline Jaffe | | | 2019 | Visit | | MD Raul [address] | | | | | | [address] | | | | | | [place] [address] | | | | | | [phone] | | | | | | | | +--------+ + + + + | 08/24/ | Office | Cardiology | Anisha oLpez DO | | | 2019 | Visit | | [address] | | | | | | [place] | | | | | | [phone] | | | | | | | | +--------+ + + + + documented as of this encounter Procedures + +--------+ + + + | Procedure Name | Priori | Date/Time | Associated Diagnosis | Comments | | | ty | | | | + +--------+ + + + | PNEUMOCYSTIS | STAT | 09/01/2018 | Tachypnea | Results for this | | BRIAN , | | 4:08 PM | | procedure [...] + documented in this encounter Results Pneumocystis Johnathanroveci Ag, Immunofluorescent (09/01/2018 4:08 PM PDT) + [...] + | Performed at: 01 - [facility] [place] [address], | REFERENCE LAB | | [place], [place] [id number] Energy Economist: Kodak Collins MD, Phone: | [facility] | | [phone] | | + + + + + + + + | Performing | Address | City/State/Zipcode | Phone Number | | Organization | | | | + + + + + | REFERENCE LAB | [address] | [place] [address] | [phone] | | [place] | [place] | | | + + + + [...] [address] | [place] | [phone] | | [facility] | | [address] | | | - LABORATORY | | | | + + + + + documented in this encounter Visit Diagnoses + + | Diagnosis | + + | Tachypnea | + + documented in this encounter"
--- OUTSIDE RECORDS SUMMARY | ~2019-05-05 | XMS | Clinical Summary ---
Demographics + + + | Address | [address] | | | [place] [address] | + + + | Home Phone | | + + + | Preferred Language | Unknown | + + + | Marital Status | Single | + + + | Hindu Affiliation [...] Team Providers + +------+ + | Care Business Division Chair Name | Role | Phone | + +------+ + | Ayana Taylor MD | PCP | Unavailable | + +------+ + Source Comments KARISHMA is fully live on both [employer] Ambulatory and [employer] InPatient.[facility] Allergies Not on File Medications Not on [...] | | | + +--------+ +--------+-------+---------+--------+ | LOCOMOTIVE SWITCH OPERATOR MEDICAID | LOCOMOTIVE SWITCH OPERATOR | [id number] | 06/03/19 | | | [...] | 1945 | [phone] | [place] [address] | | | jana | | | 1 (Home) | | + +--------+ +--------+ + +"
--- OUTSIDE RECORDS SUMMARY | ~2019-05-05 | XMS | Encounter Summary ---
Demographics + + + | Address | [address] | | | [place] [address] | + + + | Home Phone [...] [place] | | | | | [address] | | + + + + + Care Team Providers + +------+ + | Care Journeyman Sheet Metal Worker Name | Role | Phone | [...] Squamous | Jimmy C, DO | [address] | | | | | cell | [address] | Door, | | | | | carcinoma of | [address] | [place] [address] | | | | | lung, stage | [place], | Phone: | | | | | I, right | [place] [address] | [phone] | | | | | (HCC) | Phone: | Fax: | | | | | Procedures | [phone] | [phone] | | | | | CT Treatment | Fax: | | | | | | Plan | [phone] | | | | | | Complex [...] Squamous | Jimmy C, DO | [address] | | | | | cell | [address] | Door, | | | | | carcinoma of | [address] | [place] [address] | | | | | lung, stage | [place], | Phone: | | | | | I, right | [place] [address] | [phone] | | | | | (HCC) | Phone: | Fax: | | | | | Procedures | [phone] | [phone] | | | | | CT Treatment | Fax: | | | | | | Plan | [phone] | | | | | | Complex | | | +--------+--------+ + + + + Encounter Details +--------+ + + + + | Date | Type | Department | Care Team | Description | +--------+ + + + + | 07/26/ | Hospital | [facility] | Jimmy Banegas DO | 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 | Encounter | MED CTR [address] | [address] | carcinoma of lung, | | | | [address], | [place], [place] | stage I, right (HCC) | | | | [place] [address] | [address] | | | | | [phone] | | | +--------+ + + + [...] puffs into | 1 | 0 | 02/16/20 | | | mcg/puff inhaler | the [...] | | | | | [place] [address] | | | | | | [phone] | | | | | | | | +--------+ + + + + | 06/08/ | Office | Physical Medicine | Rocky Santos, | | | 2019 | Visit | and Rehabilitation | MD [address] | | | | | | [place] | | | | | | [address] | | | | | | | | +--------+ + + + + | 06/16/ | Appointment | Pulmonology | Eveline Jaffe | | 2019 | | | MD [address] | | | | | | [address] | | | | | | [place] [address] | | | | | | [phone] | | | | | | | | +--------+ + + + + | 06/16/ | Office | Pulmonology | Eveline Jaffe | | | 2019 | Visit | | MD Raul [address] | | | | | | [address] [address] | | | | | | [place] [address] | | | | | | [phone] | | | | | | | | +--------+ + + + + | 08/24/ | Office | Cardiology | Anisha Lopez DO | | | 2019 | Visit | | [address] | | | | | | [place] | | | | | | [address] | | | | | | | [...]
--- OUTSIDE RECORDS SUMMARY | ~2019-05-05 | XMS | Encounter Summary ---
Demographics + + + | Address | [address] | | | [place] [address] | + + + | Home Phone [...] [place] | | | | | [address] | | + + + + + Care Team Providers + +------+ + | Care Occupational Therapist'S Assistant Name | Role | Phone | [...] | | | [place] | | [place] [address] | | | | | finger, left | | Phone: | | | | | ring finger | | [phone] | | | | | Trigger | | Fax: | | | | | middle | | [phone] | | | | | finger of | | | | | | | left hand | | | | | | | Procedures | | | | | | | AL INCISE | | | | | | [...] + + | 09/28/ | Surgery | [facility] | Giuliano Padilla, | Canceled | | 2019 | | MED CTR OR INTRA OP | [address] | PROCEDURE NOT | | | | [address] | [place] | PERFORMED - Left | | | | [place], [place] | [address] | Thumb, Long and | | | | [address] | | Index Trigger Finger | | | | [phone] | | Release | +--------+---------+ + + [...] | | | | | [place] [address] | | | | | | [phone] | | | | | | | | +--------+ + + + + | 06/08/ | Office | Physical Medicine | Rocky Santos, | | | 2019 | Visit | and Rehabilitation | MD [address] | | | | | | [place] | | | | | | [address] | | | | | | | | +--------+ + + + + | 06/16/ | Appointment | Pulmonology | Eveline Jaffe | | 2019 | | | MD [address] | | | | | | [address] [place] | | | | | | [place] [address] | | | | | | [phone] | | | | | | | | +--------+ + + + + | 06/16/ | Office | Pulmonology | Eveline Jaffe | | | 2019 | Visit | | MD [address] | | | | | | [address] [place] | | | | | | [place] [address] | | | | | | [phone] | | | | | | | | +--------+ + + + + | 08/24/ | Office | Cardiology | Anisha Lopez DO | | | 2019 | Visit | | [address] | | | | | | [place] | | | | | | [address] | | | | | | | [...]
--- OUTSIDE RECORDS SUMMARY | ~2019-05-05 | XMS | Encounter Summary ---
Demographics + + + | Address | [address] | | | [place] [address] | + + + | Home Phone [...] [place] | | | | | [address] | | + + + + + Care Team Providers + +------+ + | Care Flat Clothier Name | Role | Phone | + [...] [place], | | | | | | [place] [address] | | | | | | [phone] | | | +--------+ + + + [...] | 2018 | Visit | | [address] | | | | | | [facility] | | | | | | [place] [address] | | | | | | [phone] | | | | | | | | +--------+ + + + + | 06/08/ | Office | Physical Medicine | Rocky Santos, | | | 2019 | Visit | and Rehabilitation | [address] | | | | | | [place] | | | | | | [address] | | | | | | | | +--------+ + + + + | 06/16/ | Appointment | Pulmonology | Eveline Jaffe | | | 2019 | | | MD [address] | | | | | | [address] [place] | | | | | | [place] [address] | | | | | | [phone] | | | | | | | | +--------+ + + + + | 06/16/ | Office | Pulmonology | Eveline Jaffe | | | 2019 | Visit | | MD [address] | | | | | | [address] [place] | | | | | | [place], [place] [address] | | | | | | [phone] | | | | | | | | +--------+ + + + + | 08/24/ | Office | Cardiology | Anisha Lopez DO | | | 2019 | Visit | | [address] | | | | | | [place] | | | | | | [address] | | | | | | | | +--------+ + + + + documented as of this encounter Visit Diagnoses Not on filedocumented in this encounter"
--- OUTSIDE RECORDS SUMMARY | ~2019-05-05 | XMS | Encounter Summary ---
Demographics + + + | Address | [address] | | | [place] [address] | + + + | Home Phone [...] [place] | | | | | [address] | | + + + + + Care Team Providers + +------+ + | Care Shuttle Hand Name | Role | Phone | + +------+ + | Davis Ivan MD | PCP | | + +------+ + Encounter Details +--------+ + + + + | Date | Type | Department | Care Team | Description | +--------+ + + + + | 10/05/ | Episode | [facility] [place] | Lauren, | | | 2017 | Changes | ORTHOPEDIC SURGERY | Ruddy Bhatia [place] | | | | | [address] | | | | | | [place] | | | | | | [address] | | | | | | [phone] | | | +--------+ + + + [...] | | | | | | [place] | | | | | | [place] [address] | | | | | | [phone] | | | | | | | | +--------+ + + + + | 06/08/ | Office | Physical Medicine | Rocky Santos, | | | 2019 | Visit | and Rehabilitation | MD [address] | | | | | | [place] | | | | | | [address] | | | | | | | | +--------+ + + + + | 06/16/ | Appointment | Pulmonology | Eveline Jaffe | | | 2019 | | | MD [address] | | | | | | [address] | | | | | | [place] [address] | | | | | | [phone] | | | | | | | | +--------+ + + + + | 06/16/ | Office | Pulmonology | Eveline Jaffe | | | 2019 | Visit | | MD [address] | | | | | | [address] | | | | | | [place] [address] | | | | | | [phone] | | | | | | | | +--------+ + + + + | 08/24/ | Office | Cardiology | Anisha Lopez DO | | | 2019 | Visit | | [address] | | | | | | [place] | | | | | | [id number] | | | | | | | | +--------+ + + + + documented as of this encounter Visit Diagnoses Not on filedocumented in this encounter"
--- OUTSIDE RECORDS SUMMARY | ~2019-05-05 | XMS | Encounter Summary ---
Demographics + + + | Address | [address] | | | [place] [address] | + + + | Home Phone [...] [place] | | | | | [address] | | + + + + + Care Team Providers + +------+ + | Care Concrete Worker Name | Role | Phone | + +------+ + | Davis Ivan MD | PCP | | + +------+ + Encounter Details +--------+ + + + + | Date | Type | Department | Care Team | Description | +--------+ + + + + | 08/11/ | Hospital | [facility] | Conversion | Pain | | 2014 | Encounter | [address] | Transaction, | | | | | [address] | Provider Unknown | | | | | [place] | [phone] | | | | | [address] | | | | | | [phone] | | | +--------+ + + + [...] | 2018 | Visit | | [address] | | | | | | [place] | | | | | | [place] [address] | | | | | | [phone] | | | | | | | | +--------+ + + + + | 06/08/ | Office | Physical Medicine | Rocky Santos, | | | 2019 | Visit | and Rehabilitation | MD Vare[address] | | | | | | [place] | | | | | | [address] | | | | | | | | +--------+ + + + + | 06/16/ | Appointment | Pulmonology | Eveline Jaffe | | | 2019 | | | MD [address] | | | | | | [address] [place] | | | | | | [place] [address] | | | | | | [phone] | | | | | | | | +--------+ + + + + | 06/16/ | Office | Pulmonology | Eveline Jaffe | | | 2019 | Visit | | MD [address] | | | | | | [address] [place] | | | | | | [place] [address] | | | | | | [phone] | | | | | | | | +--------+ + + + + | 08/24/ | Office | Cardiology | Anisha Lopez DO | | | 2019 | Visit | | [address] | | | | | | [place] | | | | | | [address] | | | | | | | [...]
--- OUTSIDE RECORDS SUMMARY | ~2019-05-05 | XMS | Encounter Summary ---
Demographics + + + | Address | [address] | | | [place] [address] | + + + | Home Phone [...] [place] | | | | | [address] | | + + + + + Care Team Providers + +------+ + | Care Advertising Supervisor Name | Role | Phone | + +------+ + | Davis Ivan MD | PCP | | + +------+ + Encounter Details +--------+ + + + + | Date | Type | Department | Care Team | Description | +--------+ + + + + | 02/01/ | Hospital | [facility] | Conversion | Pain | | 2014 | Encounter | [address] | Transaction, | | | | | [address] | Provider Unknown | | | | | [place] | [phone] | | | | | [address] | | | | | | [phone] | | | +--------+ + + + [...] | | | | | [place] [address] | | | | | | [phone] | | | | | | | | +--------+ + + + + | 06/08/ | Office | Physical Medicine | Rocky Santos, | | | 2019 | Visit | and Rehabilitation | MD [address] | | | | | | [place] | | | | | | [address] | | | | | | | | +--------+ + + + + | 06/16/ | Appointment | Pulmonology | Eveline Jaffe | | 2019 | | | MD [address] | | | | | | [address] | | | | | | [place] [address] | | | | | | [phone] | | | | | | | | +--------+ + + + + | 06/16/ | Office | Pulmonology | Eveline Jaffe | | | 2019 | Visit | | MD Raul [address] | | | | | | [address] [place] | | | | | | [place] [address] | | | | | | [phone] | | | | | | | | +--------+ + + + + | 08/24/ | Office | Cardiology | Anisha Lopez DO | | | 2019 | Visit | | [address] | | | | | | [place] | | | | | | [address] | | | | | | | [...]
--- OUTSIDE RECORDS SUMMARY | ~2019-05-05 | XMS | Encounter Summary ---
Demographics + + + | Address | [address] | | | [place] [address] | + + + | Home Phone [...] [place] | | | | | [address] | | + + + + + Care Team Providers + +------+ + | Care Shade Matcher Name | Role | Phone | + [...] RN | obstructive | | | | [place], | | pulmonary disease) | | | | [place] [address] | | | | | | [phone] | | | +--------+ + + + [...] | | | | | [place] [address] | | | | | | [phone] | | | | | | | | +--------+ + + + + | 06/08/ | Office | Physical Medicine | Rocky Santos, | | | 2019 | Visit | and Rehabilitation | MD [address] | | | | | | [place] | | | | | | [address] | | | | | | | | +--------+ + + + + | 06/16/ | Appointment | Pulmonology | Eveline Jaffe | | 2019 | | | MD [address] | | | | | | [address] | | | | | | [place] [address] | | | | | | [phone] | | | | | | | | +--------+ + + + + | 06/16/ | Office | Pulmonology | Eveline Jaffe | | | 2019 | Visit | | MD Raul [address] | | | | | | [address] | | | | | | [place] [address] | | | | | | [phone] | | | | | | | | +--------+ + + + + | 08/24/ | Office | Cardiology | Anisha Lopez DO | | | 2019 | Visit | | [address] | | | | | | [place] | | | | | | [phone] | | | | | | | | +--------+ + + + + documented as of this encounter Visit Diagnoses + + | Diagnosis | + + | COPD (chronic obstructive pulmonary disease) Chronic airway obstruction, not | | elsewhere classified | + + documented in this encounter"
--- OUTSIDE RECORDS SUMMARY | ~2019-05-05 | XMS | Encounter Summary ---
Demographics + + + | Address | [address] | | | [place] [address] | + + + | Home Phone [...] [place] | | | | | [address] | | + + + + + Care Team Providers + +------+ + | Care Gastroenterology Physician Name | Role | Phone | + +------+ + PCP | Unavailable | + +------+ + Encounter Details +--------+ + + + + | Date | Type | Department | Care Team | Description | +--------+ + + + + | 01/12/ | Hospital | [facility] | Conversion | Pain | | 2013 | Encounter | [address] | Transaction, | | | | | [address] | Provider Unknown | | | | | [place], [place] | [phone] | | | | | [address] | | | | | | [phone] | | | +--------+ + + + [...] | | | | | [place] [address] | | | | | | [phone] | | | | | | | | +--------+ + + + + | 06/08/ | Office | Physical Medicine | Rocky Santos, | | | 2019 | Visit | and Rehabilitation | MD [address] | | | | | | [place] | | | | | | [address] | | | | | | | | +--------+ + + + + | 06/16/ | Appointment | Pulmonology | Eveline Jaffe | | 2019 | | | MD [address] | | | | | | [address] | | | | | | [place] [address] | | | | | | [phone] | | | | | | | | +--------+ + + + + | 06/16/ | Office | Pulmonology | Eveline Jaffe | | | 2019 | Visit | | MD Raul [address] | | | | | | [address] | | | | | | [place] [address] | | | | | | [phone] | | | | | | | | +--------+ + + + + | 08/24/ | Office | Cardiology | Anisha Lopez DO | | | 2019 | Visit | | [address] | | | | | | [place] | | | | | | [address] | | | | | | | | +--------+ + + + + documented as of this encounter Procedures + +--------+ + + + | Procedure Name | Priori | Date/Time | Associated Diagnosis | Comments | | | ty | | | | + +--------+ + + + | CT THORACIC SPINE WO | Routin | 01/07/2013 | | Results for this | | CONTRAST | e | 12:26 PM | | procedure are in the | | | | PDT | | results section. | + +--------+ + + + documented in this encounter Results CT Thoracic Spine wo Contrast (01/07/2013 12:26 PM PDT) + + | Specimen | [...]
--- OUTSIDE RECORDS SUMMARY | ~2019-05-05 | XMS | Encounter Summary ---
Demographics + + + | Address | [address] | | | [place] [address] | + + + | Home Phone [...] [place] | | | | | [address] | | + + + + + Care Team Providers + +------+ + | Care Seasonal Greenery Bundler Name | Role | Phone | + +------+ + | Caitlin Chino MD | PCP | | + +------+ + Encounter Details +--------+ + + + + | Date | Type | Department | Care Team | Description | +--------+ + + + + | 02/25/ | Orders Only | [facility] | Santosh Sumner, | Decreased GFR | | 2019 | | RHEUMATOLOGY [address] | PA-C [address] | (Primary Dx) | | | | [place] | [facility] | | | | | [place] | [place] [address] | | | | | [address] | [phone] | | | | | [phone] | | | +--------+ + + + [...] | | | | | [facility] | | | | | | [place] [address] | | | | | | [phone] | | | | | | | | +--------+ + + + + | 06/08/ | Office | Physical Medicine | Rocky Santos, | | | 2019 | Visit | and Rehabilitation | [address] | | | | | | [place] | | | | | | [address] | | | | | | | | +--------+ + + + + | 06/16/ | Appointment | Pulmonology | Eveline Jaffe | | | 2019 | | | MD [address] | | | | | | [address] [place] | | | | | | [place] [address] | | | | | | [phone] | | | | | | | | +--------+ + + + + | 06/16/ | Office | Pulmonology | Eveline Jaffe | | | 2019 | Visit | | MD [address] | | | | | | [address] [place] | | | | | | [place] [address] | | | | | | [phone] | | | | | | | | +--------+ + + + + | 08/24/ | Office | Cardiology | Anisha Lopez DO | | | 2019 | Visit | | [address] | | | | | | [place] | | | | | | [address] | | | | | | | | +--------+ + + + + + +------+--------+ + + | Name | Type | Priori | Associated Diagnoses | Order Schedule | | | | ty | | | + +------+--------+ + + | Renal Function Panel | Lab | Routin | Decreased GFR | Expected: | | | | e | | 03/11/2019, Expires: | | | | | | 02/26/2020 | + +------+--------+ + + documented as of this encounter Visit Diagnoses + + | Diagnosis | + + | Decreased GFR - Primary Nonspecific abnormal results of kidney function study | + + documented in this encounter"
--- OUTSIDE RECORDS SUMMARY | ~2019-05-05 | XMS | Encounter Summary ---
Demographics + + + | Address | [address] | | | [place] [address] | + + + | Home Phone [...] [place] | | | | | [address] | | + + + + + Care Team Providers + +------+ + | Care Chainstitch Seat Joiner Name | Role | Phone | + [...] + + | 07/28/ | Telephone | [facility] | Chalino Chiu | Other (Pre-Op | | 2015 | | SURGERY [address] | MD Brittanie, FACS [address] | Orders) | | | | [place], [place] | [address] [facility] | | | | | [address] | [place] [address] | | | | | [phone] | [phone] | | | | | | | [...] | | | | | [place] [address] | | | | | | [phone] | | | | | | | | +--------+ + + + + | 06/08/ | Office | Physical Medicine | Rokcy Santos, | | | 2019 | Visit | and Rehabilitation | [address] | | | | | | [place] | | | | | | [address] | | | | | | | | +--------+ + + + + | 06/16/ | Appointment | Pulmonology | Eveline Jaffe | | | 2019 | | | MD [address] | | | | | | [address] [place] | | | | | | [place] [address] | | | | | | [phone] | | | | | | | | +--------+ + + + + | 06/16/ | Office | Pulmonology | Eveline Jaffe | | | 2019 | Visit | | MD [address] | | | | | | [address] [place] | | | | | | [place] [address] | | | | | | [phone] | | | | | | | | +--------+ + + + + | 08/24/ | Office | Cardiology | Anisha Lopez DO | | | 2019 | Visit | | [address] | | | | | | [place] | | | | | | [address] | | | | | | | | +--------+ + + + + documented as of this encounter Visit Diagnoses Not on filedocumented in this encounter"
--- OUTSIDE RECORDS SUMMARY | ~2019-05-05 | XMS | Encounter Summary ---
Demographics + + + | Address | [address] | | | [place] [address] | + + + | Home Phone [...] [place] | | | | | [address] | | + + + + + Care Team Providers + +------+ + | Care Volumetric Weigher Name | Role | Phone | + [...] + + + + | 09/20/ | Hospital | [facility] | Adelita Lu MD | Anxiety (Primary | | 2015 | Encounter | [facility] | [address] | Dx); Chronic pain; | | | | [facility] [address] | [place] | COPD (chronic | | | | [address] [place] | [address] | obstructive | | | | [place] [address] | [phone] | pulmonary disease) | | | | [phone] | | (HCC); Depression; | | | | | | Spinal stenosis in | | | | | | cervical region; | | | | | | Squamous cell | | | | | | carcinoma of lung, | | | | | | stage I, unspecified | | | | | | laterality ([facility]); | | | | | | Recurrent squamous | | | | | | cell carcinoma of | | | | | | lung, unspecified | | | | | | laterality ([facility]) | +--------+ + + + + Social [...] + | Blood Pressure | 126/68 | 09/20/2014 2:29 PM | | | | | PDT | | + + + + + | Pulse | 89 | 09/20/2014 2:29 PM | | | | | PDT | | + + + + + | Temperature | 37 C (98.6 F) | 09/20/2014 2:29 PM | | | | | PDT | | + + + + + | Respiratory Rate | 18 | 09/20/2014 2:29 PM | | | | | PDT | | + + + + + | Oxygen Saturation | 96% | 09/20/2014 2:29 PM | | | | | PDT | | + + + + + | Inhaled Oxygen | - | - | | | Concentration | | | | + + + + + | Weight | 69 kg (152 lb 1.9 | 09/20/2014 2:29 PM | | | | oz) | PDT | | + + + + + | Height | - | - | | + + + + + | Body Mass Index | 27.82 | 09/07/2014 1:56 PM | | | [...] mouth | 473 mL | 0 | 09/20/19 | | | HYDROcodone-acetamin | 4 times [...] encounter Progress Notes Adelita Lu MD - 09/20/2014 2:27 PM PDT .[facility] Hem-Onc Progress Note [facility] Patient name:Thea Carmona : 1945 Age: 69 y.o. CSN: [id number] Date of Service: 09/20/2014 Identifying Statement: Thea Carmona is a 69 y.o. female from [facility] with clinical stage II, non-small cell [...] lewis 2.CT-guided biopsy by interventional radiology at [facility] of the right lung massshows squamous cell [...] weekly carboplatin and Taxol in August 2014 Chief Complaint/HPI: REVIEW OF SYSTEMS Constitutional: Pt reports fatigue. Denies high fevers, shaking chills, anorexia, nausea, v omiting, weight loss, or night sweats. Pt reports lack of appetite. Pt reports occasional n ight sweats. Ear, Nose, Mouth, Throat: Denies odynophagia, dysphagia, or tinnitus. Cardiovascular: Denies chest pain, palpitations or orthopnea. Pt reports SOB and dyspnea on exertion. Respiratory: Denies hemoptysis. Pt reports a cough with green sputum production. Pt reports blood within the green mucus she coughs up in the morning but not during the day. Gastrointestinal: Denies abdominal pain, constipation, diarrhea, melena, or bright red bloo d per rectum. Genitourinary: Denies hematuria or dysuria. Musculoskeletal: Pt reports arthritis. Neurologic: Denies headache, visual changes. Pt reports numbness/tingling in her toes, usua lly at night. Endocrine: Denies heat/cold intolerance. Pt reports edema in her left ankle/calve. Hematologic: Denies bleeding. Pt reports easily bruising. Integumentary: Denies rash, wounds or other skin concerns. Pain: Denies pain. Note:Pt presents today for f/u. She is concerned about a lump she found this morning in her lower right abdomen. My chart:declined Past Medical History: Past Medical History Diagnosis Date COPD (chronic obstructive pulmonary disease) ([facility]) on albuterol Spondylolisthesis of cervical region Spinal stenosis has tried cortisone injections Osteoporosis Depression Pneumonia 2009 hospitalized 5 days Rheumatoid arthritis(714.0) ([facility]) [facility] Hyperlipidemia on simvastatin Hypertension on clonidine and lisinopril Hypothyroidism GERD (gastroesophageal reflux disease) Stroke ([facility]) 2006 Stroke ([facility]) 2007 Squamous cell carcinoma of lung ([facility]) 07/2013 right lower lobe Sputum culture positive for Scopulariopsis species Recurrent squamous cell carcinoma of lung ([facility]) 07/11/[address] and RUL [...] mg by mouth Daily. RESPIRATORY THERAPY SUPPLIES [employer] ResMed S9 auto CPAP 5-9 cm H2O. Heater and Humidifier . All necessary supplies. AHI 11.6. Diagnosis Code(s)327.23, also has co morbid hypertension , history of stroke. Length of Need 99 months. Please send order to [facility]. RESPIRATORY THERAPY SUPPLIES [facility] [employer] Respironics autotitrating CPAP at 5-9 cm H2O for life time. Mask, headgear, chin strap, hoses, humidifier chamber and filters. Dx: 327.23 SIMVASTATIN (ZOCOR) 40 MG TABLET Take 40 mg by mouth nightly. VENLAFAXINE (EFFEXOR) 75 MG TABLET Take 37.5 mg by mouth 2 times daily. Modified Medications No medications on file Discontinued Medications No medications on file Physical Exam: Vitals:Temp: [37 C (98.6 F)] 37 C (98.6 F) Pulse: [89] 89 Resp: [18] 18 BP: (126)/(68) 126/68 mmHg Gen.: Performance status ECoG 1 . Well nourished, appears well not in apparent distress.. Chest: Clear to auscultation. No wheezes present Extremities: Left lower extremity edema present Abdomen: No abdominal masses palpable. Small ventral hernia present LABORATORY DATA: No results found for this or any previous visit (from the past 24 hour(s)). IMPRESSION: Stage II squamous non-small cell right lung cancer status post lobectomy August 2013 2. Recurrence of non-small cell lung cancer in June 2014 3. Comorbidities with rheumatoid arthritis on methotrexate, history of stroke in 2005 and 2006 on aspirin and Plavix 4. Chronic unresolving cough PLAN: Patient patient will complete concurrent chemoradiation this week She continues to have cough in spite of taking proton pump inhibitors, Tessalon Perles and codeine syrup Follow-up will be in 3-4 weeks to assess for 2 systemic rounds of full dose chemotherapy carboplatin and Taxol Total time face to face discussion with the patient and family was 15 minutes, more than 5 0% of the time was spent counseling and coordination of care. Portions of this chart may have been created with [employer] voice recognition software. Occasi onal wrong-word or [...] | 2018 | Visit | | [address] | | | | | | [facility] | | | | | | [place] [address] | | | | | | [phone] | | | | | | | | +--------+ + + + + | 06/08/ | Office | Physical Medicine | Rocky Santos, | | | 2019 | Visit | and Rehabilitation | MD [address] | | | | | | [place] | | | | | | [address] | | | | | | | | +--------+ + + + + | 06/16/ | Appointment | Pulmonology | Eveline Jaffe | | | 2019 | | | MD [address] | | | | | | [address] | | | | | | [place] [address] | | | | | | [phone] | | | | | | | | +--------+ + + + + | 06/16/ | Office | Pulmonology | Eveline Jaffe | | | 2019 | Visit | | MD [address] | | | | | | [address] [place] | | | | | | [place] [address] | | | | | | [phone] | | | | | | | | +--------+ + + + + | 08/24/ | Office | Cardiology | Anisha Lopez DO | | | 2019 | Visit | | [address] | | | | | | [place] | | | | | | [address] | | | | | | | | +--------+ + + + + documented as of this encounter Visit Diagnoses + + | Diagnosis | + + | Anxiety - Primary Anxiety state, unspecified | + + | Chronic pain Other chronic pain | + + | COPD (chronic obstructive pulmonary disease) (HCC) Chronic airway obstruction, not | | elsewhere classified | + + | Depression Depressive disorder, not elsewhere classified | + + | Spinal stenosis in cervical region | + + | Squamous cell carcinoma of lung, stage I, unspecified laterality (HCC) | + + | Recurrent squamous cell carcinoma of lung, unspecified laterality (HCC) | + + documented in this encounter"
--- OUTSIDE RECORDS SUMMARY | ~2019-05-05 | XMS | Encounter Summary ---
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 [address] [place] [address], [place] [address]. All [facility] ts reserved. This information is not intended [...] may interact with prescription medicines or other kvxj-dvd-kffilro (OTC) drugs. The FDA recommends reading OTC medication labels careful ly to clearly understand the list of active ingredients, directions, and any precautions to help avoid taking too muchacetaminophen. If you have questions, ask your pharmacist or a [facility] care provider. Managing Nausea Some people [...] or skin changes (rash, itching, or hives). [id number] [employer]. [address] [place] [address], [place] [address]. All righ ts reserved. This information is [...] | | | | | [place] [address] | | | | | | [phone] | | | | | | | | +--------+ + + + + | 06/08/ | Office | Physical Medicine | Rocky Santos | | | 2019 | Visit | and Rehabilitation | [address] | | | | | | [place] | | | | | | [address] | | | | | | | | +--------+ + + + + | 06/16/ | Appointment | Pulmonology | Eveline Jaffe | | | 2019 | | | MD [address] | | | | | | [address] [place] | | | | | | [place] [address] | | | | | | [phone] | | | | | | | | +--------+ + + + + | 06/16/ | Office | Pulmonology | Eveline Jaffe | | | 2019 | Visit | | MD [address] | | | | | | [address] [place] | | | | | | [place] [address] | | | | | | [phone] | | | | | | | | +--------+ + + + + | 08/24/ | Office | Cardiology | Anisha Lopez DO | | | 2019 | Visit | | [address] | | | | | | [place] | | | | | | [address] | | | | | | | [...] | | | + +--------+ +--------+------+------+ | HYDROmorphone (DILAUDID) | Given | 07/28/19 [...] +--------+ +--------+------+------+ +-------+ +--------+---+---+ | Given | 07/28/19 | 0.5 mg | | | | | 15 5:36 | | | | | | PM PST | | | | +-------+ +--------+---+---+ +---+---+ | | | +---+---+ documented in this encounter
--- OUTSIDE RECORDS SUMMARY | ~2019-05-05 | XMS | Encounter Summary ---
Demographics + + + | Address | [address] | | | [place] [address] | + + + | Home Phone [...] [place] | | | | | [address] | | + + + + + Care Team Providers + +------+ + | Care Statistics Tutor Name | Role | Phone | + [...] | | Pulmonary | Off[place], | [address] | | | | | nodule | Ayana B, | [place], | | | | | Procedures | MD [address] | [place] [address] | | | | | CT Chest wo | [address] | Phone: | | | | | Contrast | [place], | [phone] | | | | | | [place] [address] | Fax: | | | | | | | [phone] | +--------+--------+ + + + + Reason for Visit + + + | Reason | Comments | + + + | Follow-up | | + + + Encounter Details +--------+---------+ + + + | Date | Type | Department | Care Team | Description | +--------+---------+ + + + | 05/11/ | Office | [facility] [place] | Offenstein, | Pulmonary nodule | | 2012 | Visit | PULMONARY [address] | Ayana Looney MD | (Primary Dx); | | | | [address] [place], | | Snoring; Depression | | | | [place] [address] | | | | | | [phone] | | | +--------+---------+ + + + [...] + + + | Blood Pressure | 102/58 | 05/11/2013 1:01 PM | | | | | PST | | + + + + + | Pulse | 74 | 05/11/2013 1:01 PM | | | | | PST | | + + + + + | Temperature | - | - | | + + + + + | Respiratory Rate | - | - | | + + + + + | Oxygen Saturation | 97% | 05/11/2013 1:01 PM | | | | | PST | | + + + + + | Inhaled Oxygen | - | - | | | Concentration | | | | + + + + + | Weight | 71.9 kg (158 lb 9.6 | 05/11/2013 1:01 PM | | | | oz) | PST | | + + + + + | Height | 157.5 cm (5' 2") | 05/11/2013 1:01 PM | | | | | PST | | + + + + + | Body Mass Index | 29.01 | 05/11/2013 1:01 PM | | | | | PST | | + + + + + documented in this encounter Patient Instructions Patient Instructions Ayana Taylor MD - 05/11/2013 1:47 PM PSTWe will refer you f or a sleep study. We will repeat your CT scan in about a month. I would consider seeing a therapist for management of your depression. I would recommend Dr Janet Hurtado or Dr. Alcala. documented in this encounter Progress Notes Narcisa Kwok RN - 05/11/2013 1:59 PM PSTI placed some in your Inbox a couple of days ag o. yana Taylor MD - 05/11/2013 1:21 PM PST . Pulmonary Follow Up MD [place] [facility] [address] [place], [address] HPI Thea Carmona is a 67 y.o. female patient of Davis Ivan here today for follo w up of an abnormal chest x-ray. At their last visit, we had initially decided to treat her empirically, but then found out that the medication would interact with her Valium and her simvastatin. She has felt warm th e last few days and has had a runny nose and a cough. She has been somewhat lethargic and ti red for the last few days. She notes that these episodes will comes and go every few months periodically. They had a lot of questions about the possibility of cancer, infection. WE again discussed the issues of biopsy, empiric treatment, risks of each, and also following radiographicaly. Her has done some reading, so had some new questions today. She can go without her c collar 6-8 months from April 06. Past Medical History Past Medical History Diagnosis Date COPD (chronic obstructive pulmonary disease) on albuterol Spondylolisthesis of cervical region Spinal stenosis Osteoporosis Depression Pneumonia 2009 hospitalized 5 days Rheumatoid arthritis on prednisone and methotrexate, Dr. 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 Has lost weight. She has been feeling warm. Sleep: She does snore. She does stop breathing in her sleep. Her thinks she may cintron ve apnea at times, as he has it. She is tired all the time. Eyes: Denies vision change and eye irritation. Resp: See HPI. CV: Denies chest pain, palpitations, syncope, and peripheral edema. GI: Denies heartburn, nausea, vomiting, and abdominal pain. Neuro: Her notes she has had some confusion and some memory loss since her surgery. Objective BP 102/58 | Pulse 74 | Ht 1.575 m (5' 2") | Wt 71.94 kg (158 lb 9.6 oz) | BMI 29.01 kg/m2 | SpO2 97% RA General Appearance: Alert, cooperative, no distress, appears stated age Head: Normocephalic, without obvious abnormality, atraumatic Eyes: PERRL, conjunctiva clear, no scleral icterus, EOM's intact Ears: Normal TM's, external auditory canals, normal acuity Nose: Nares normal, septum midline, mucosa normal Mouth: No oral lesions or exudate Neck: Supple, symmetrical, no adenopathy Lungs: No accessory muscle use, breath sounds are somewhat diminished bilaterally, no whe ezes, crackles or rhonchi Chest Wall: No deformity Heart: Regular rate and rhythm, no murmur, rub or gallop Abdomen: Soft, non-tender, non-distended, mildly obese Extremities: No cyanosis, clubbing, or edema Pulses: Radial pulses 2+ and symmetric Skin: Warm and dry Lymph nodes: Cervical and supraclavicular nodes normal Data: Chest x-ray was done prior to clinic today and was reviewed and interpreted in clinic today . It shows A stable nodule on the right. Immunization History Administered Date(s) Administered INFLUENZA, PRESERVATIVE FREE IM 03/22/2013 Pneumococcal (Adult) 03/01/2011 Assessment 1. Pulmonary nodule - Most likely infectious or inflammatory, though not characteristic in appearance of a rheumatoid nodule (they are PET negative anyway). Does not behave on PET sca n like malignancy, and does not appear like one either. That being said, if infectious, with her immunosuppressive therapy, it could become problematic over time. Risk of biopsy is addison l, as pneumothorax could happen, and if airway compromise occurred, with her c spine collar and spine issues, she could be at risk of a major airway compromise in an emergency. Serolog ical diagnosis was not obtainable. This all being said, I think following radiographicaly is appropriate. Treating empirically interfered with several medications, including her Valium (elevated the levels). If it enla rged further, it could become more biopsy amenable (would be more peripherally accessible). 2. Snoring - Highly suspect apnea based on symptoms described, in addition to medications u sed, which would increase risk of central apnea. Will refer for sleep study. 3. Depression - Her notes lack of appetite, crying at the drop of a hat, and she wa s tearful when he brought this up. She is not interested in more medications. I strongly sug gested therapy, and provided two names for them, as the surgery and recovery has been very s tressful for her. Plan 1.Will repeat her CT scan in 1 month. If nodule enlarges, we can consider biopsy then. 2.Refer for diagnostic polysomnogram. 3.Recommended counseling for depression management. She was advised to call if new pulmonary symptoms were to develop. Return to clinic in 1 month, or sooner with concerns. CC: Davis Ivan Portions of this report were transcribed using voice recognition software. Every effort wa s made to ensure accuracy; however, inadvertent computerized two needle machine operator errors may be pre sent. documented [...] CENTER | | | | | | [place] [address] | | | | | | [phone] | | | | | | | | +--------+ + + + + | 06/08/ | Office | Physical Medicine | Rocky Santos, | | | 2019 | Visit | and Rehabilitation | MD Nichole [address] | | | | | | [place] | | | | | | [address] | | | | | | | | +--------+ + + + + | 06/16/ | Appointment | Pulmonology | Eveline Jaffe | | 2019 | | | MD Nichole Carter | | | | | | [address] [place] | | | | | | [place] [address] | | | | | | [phone] | | | | | | | | +--------+ + + + + | 06/16/ | Office | Pulmonology | Eveline Jaffe | | | 2019 | Visit | | MD Nichole Carter | | | | | | [address] [place] | | | | | | [place] [address] | | | | | | [phone] | | | | | | | | +--------+ + + + + | 08/24/ | Office | Cardiology | Anisha Lopez DO | | 2019 | Visit | | [address] | | | | | | [place] | | | | | | [address] | | | | | | | | +--------+ + + + + documented as of this encounter Results CT Chest wo Contrast (06/09/2013 3:45 PM PST) + + | Specimen | + + | | + + + + + | Narrative | Performed At | + + + | [facility] | [place] | | Department [address] [facility] [place] | [facility] | | [ rep ct [address]] [ rep ct [facility] | | st zip] Signed | - IMAGING | | | | | Patient Name: THEA CARMONA Physician: | | | KATIE : 1945 Age: 68 Sex: F Unit #: [id number] | | | Exam Date: 06/09/13 Location: [facility] | | | Report #: [id number] Page: | | | %(RAD)RES..mtdd.print.filter("pg") of %(RAD) | | | RES..mtdd.print.filter("tpg") | | | | | | Accession Number: [id number] | | | CT CHEST WITHOUT CONTRAST, 06/09/2013 CLINICAL HISTORY: | | | FOLLOWUP NODULE IN THE SUPERIOR SEGMENT OF THE RIGHT LOWER LOBE. | | | TECHNIQUE: Axial images were obtained from thoracic inlet to | | | upper abdomen without the use of contrast. | | | COMPARISON: 01/28/2013 scan from [place]. FINDINGS: A | | | partially cavitary [...] Transcribed Date/Time: 06/09/2013 16:14 | | | Glass Or Mirror Inspector: <<Signature on File>> | | | | | | Jose Elias Leal MD06/09/13 1702 <Electronically signed by | | | Jose Elias Leal MD> Jose Elias Leal MD 06/09/13 | | | 1545 Glass Or Mirror Inspector: [employer]ony Ngfdfjhpjrezb29/09/14 0904 | | | Ayana Taylor MD | | + + + + + + + + | Performing | Address | City/State/Zipcode | Phone Number | | Organization | | | | + + + + + | [facility] | [address] | [place] | [phone] | | [facility] | | [address] | | | - IMAGING | | | | + + + + + documented in this encounter Visit Diagnoses + + | Diagnosis | + + | Pulmonary nodule - Primary Solitary pulmonary nodule | + + | Snoring Other dyspnea and respiratory abnormality | + + | Depression Depressive disorder, not elsewhere classified | + + documented in this encounter
--- OUTSIDE RECORDS SUMMARY | ~2019-05-05 | XMS | Encounter Summary ---
Demographics + + + | Address | [address] | | | [place] [address] | + + + | Home Phone [...] [address] | | | | | [place] | | | | | [address] | | + + + + + Care Team Providers + +------+ + | Care Telegraph Equipment Maintainer Name | Role | Phone | + [...] + + | 11/09/ | Office | [facility] | Giuliano Padilla, | Postop check | | 2018 | Visit | ORTHOPEDIC SURGERY | [address] | (Primary Dx) | | | | [address] [facility] | [place] | | | | | [place] | [address] | | | | | [address] | | | | | | [phone] | | | +--------+---------+ + + + [...] | 2018 | Visit | | [place] [address] | | | | | | [facility] | | | | | | [place] [address] | | | | | | [phone] | | | | | | | | +--------+ + + + + | 06/08/ | Office | Physical Medicine | Rocky Santos, | | | 2019 | Visit | and Rehabilitation | MD [address] | | | | | | [place] | | | | | | [address] | | | | | | | | +--------+ + + + + | 06/16/ | Appointment | Pulmonology | Eveline Jaffe | | | 2019 | | | MD [address] | | | | | | [address] [place] | | | | | | [place] [address] | | | | | | [phone] | | | | | | | | +--------+ + + + + | 06/16/ | Office | Pulmonology | Eveline Jaffe | | | 2019 | Visit | | MD [address] | | | | | | [address] [place] | | | | | | [place] [address] | | | | | | [phone] | | | | | | | | +--------+ + + + + | 08/24/ | Office | Cardiology | Anisha Lopez DO | | | 2019 | Visit | | [address] | | | | | | [place], [place] | | | | | | [address] | | | | | | | | +--------+ + + + + documented as of this encounter Visit Diagnoses + + | Diagnosis | + + | Postop check - Primary Follow-up examination, following unspecified surgery | + + documented in this encounter"
--- OUTSIDE RECORDS SUMMARY | ~2019-05-05 | XMS | Encounter Summary ---
Demographics + + + | Address | [address] | | | [place] [address] | + + + | Home Phone [...] [place] | | | | | [address] | | + + + + + Care Team Providers + +------+ + | Care Race Car Mechanic Name | Role | Phone | + +------+ + | Caitlin Chino MD | PCP | | + +------+ + Encounter Details +--------+ + + + + | Date | Type | Department | Care Team | Description | +--------+ + + + + | 03/28/ | Imaging | [facility] | Provider, | | | 2019 | Exam | MED CTR EXTERNAL | MD [address] | | | | | IMAGING | [place] [address] | | | | | [phone] | [place] [address] | | +--------+ + + + + [...] | | | | | [place] [address] | | | | | | [phone] | | | | | | | | +--------+ + + + + | 06/08/ | Office | Physical Medicine | Rocky Santos | | | 2019 | Visit | and Rehabilitation | MD Nichole Landis | | | | | | [place] | | | | | | [address] | | | | | | | | +--------+ + + + + | 06/16/ | Appointment | Pulmonology | Eveline Jaffe | | 2019 | | | MD [address]ole [address] | | | | | | [address] | | | | | | [place] [address] | | | | | | [phone] | | | | | | | | +--------+ + + + + | 06/16/ | Office | Pulmonology | Eveline Jaffe | | | 2019 | Visit | | MD Raul [address] | | | | | | [address] | | | | | | [place] [address] | | | | | | [phone] | | | | | | | | +--------+ + + + + | 08/24/ | Office | Cardiology | Anisha Lopez DO | | | 2019 | Visit | | [address] | | | | | | [place] | | | | | | [address] | | | | | | | | +--------+ + + + + documented as of this encounter Procedures + +--------+ + + + | Procedure Name | Priori | Date/Time | Associated Diagnosis | Comments | | | ty | | | | + +--------+ + + + | XR SHOULDER LEFT 2 + | Routin | 08/02/2018 | | Results for this | | VW | e | 12:00 AM | | procedure are in the | | | | PST | | results section. | + +--------+ + + + documented in this encounter Results XR Shoulder Left 2 + Vw (08/02/2018 12:00 AM PST) + + | Specimen [...]
--- OUTSIDE RECORDS SUMMARY | ~2019-05-05 | XMS | Encounter Summary ---
Demographics + + + | Address | [address] | | | [place] [address] | + + + | Home Phone [...] [place] | | | | | [address] | | + + + + + Care Team Providers + +------+ + | Care Metal Drilling Machine Operator Name | Role | Phone | + +------+ + | Davis Ivan MD | PCP | | + +------+ + Encounter Details +--------+ + + + + | Date | Type | Department | Care Team | Description | +--------+ + + + + | 12/16/ | Hospital | [facility] | Giuliano Padilla, | Left hand pain | | 2018 | Encounter | MED CTR [facility] XRAY | MD Solo [facility] | | | | | [address] [place] | [place] | | | | | [place] | [address] | | | | | [address] | | | | | | [phone] | | | +--------+ + + + [...] | | | | | | type ([facility]) | | | | | | + [...] | | | | | [facility] | | | | | | [place] [address] | | | | | | [phone] | | | | | | | | +--------+ + + + + | 06/08/ | Office | Physical Medicine | Rocky Santos, | | | 2019 | Visit | and Rehabilitation | MD [address] | | | | | | [place] | | | | | | [phone] | | | | | | | | +--------+ + + + + | 06/16/ | Appointment | Pulmonology | Eveline Jaffe | | | 2019 | | | MD Nichole [address] | | | | | | [address] [place] | | | | | | [place] [address] | | | | | | [phone] | | | | | | | | +--------+ + + + + | 06/16/ | Office | Pulmonology | Eveline Jaffe | | | 2019 | Visit | | MD Nichole Carter | | | | | | [address] [place] | | | | | | [place] [address] | | | | | | [phone] | | | | | | | | +--------+ + + + + | 08/24/ | Office | Cardiology | Anisha Lopez DO | | 2019 | Visit | | [address] | | | | | | [place] | | | | | | [address] | | | | | | | [...]
--- OUTSIDE RECORDS SUMMARY | ~2019-05-05 | XMS | Encounter Summary ---
Demographics + + + | Address | [address] | | | [place] [address] | + + + | Home Phone [...] [place] | | | | | [address] | | + + + + + Care Team Providers + +------+ + | Care Research Development Manager Name | Role | Phone [...] | (Primary Dx); | | | | [place], | [address] [place] | [place] | | | | [place] [address] | [place] [address] | emphysema (HCC); | | | | [phone] | [phone] | Chronic bronchitis, | | | | [...] Gurmeet Vargas MD - 2016 3:07 PM [id number] woman with emphysema and chronic bronchitis from [...] [place]. Her lung cancer was resected in [place] in 2012, but was discovered to be [...] | | | | | [place] [address] | | | | | | [phone] | | | | | | | | +--------+ + + + + | 06/08/ | Office | Physical Medicine | Rocky Santos, | | | 2019 | Visit | and Rehabilitation | [address] | | | | | | [place] | | | | | | [address] | | | | | | | | +--------+ + + + + | 06/16/ | Appointment | Pulmonology | Eveline Jaffe | | | 2019 | | | MD Nich[address] | | | | | | [address] [place] | | | | | | [place] [address] | | | | | | [phone] | | | | | | | | +--------+ + + + + | 06/16/ | Office | Pulmonology | Eveline Jaffe | | | 2019 | Visit | | MD Raul [address] | | | | | | [address] [place] | | | | | | [place] [address] | | | | | | [phone] | | | | | | | | +--------+ + + + + | 08/24/ | Office | Cardiology | Anisha Lopez DO | | | 2019 | Visit | | [address] | | | | | | [place] | | | | | | [address] | | | | | | | [...]
--- OUTSIDE RECORDS SUMMARY | ~2019-05-05 | XMS | Encounter Summary ---
Demographics + + + | Address | [address] | | | [place] [address] | + + + | Home Phone [...] [place] | | | | | [address] | | + + + + + Care Team Providers + +------+ + | Care Engraver Steel Plate Name | Role | Phone | + [...] + | 12/16/ | Office | [facility] | Giuliano Padilla, | Right hand pain | | 2018 | Visit | ORTHOPEDIC SURGERY | [address] | (Primary Dx); Left | | | | [address] | [place] | hand pain; Postop | | | | [place] | [address] | check | | | | [address] | | | | | | [phone] | | | +--------+---------+ + + + [...] of motion of her thumb and good metallurgy teacher of her hand No tenderness and no [...] | 2018 | Visit | | [address] | | | | | | [facility] | | | | | | [place] [address] | | | | | | [phone] | | | | | | | | +--------+ + + + + | 06/08/ | Office | Physical Medicine | Rocky Santos, | | | 2019 | Visit | and Rehabilitation | MD Varela [address] | | | | | | [place] | | | | | | [address] | | | | | | | | +--------+ + + + + | 06/16/ | Appointment | Pulmonology | Eveline Jaffe | | | 2019 | | | MD Nichole Carter [address] | | | | | | [address] [place] | | | | | | [place] [address] | | | | | | [phone] | | | | | | | | +--------+ + + + + | 06/16/ | Office | Pulmonology | Eveline Jaffe | | | 2019 | Visit | | MD Nichole [address] | | | | | | [address] [place] | | | | | | [place] [address] | | | | | | [phone] | | | | | | | | +--------+ + + + + | 08/24/ | Office | Cardiology | Anisha Lopez DO | | | 2019 | Visit | | [address] | | | | | | [place] | | | | | | [address] | | | | | | | [...]
--- OUTSIDE RECORDS SUMMARY | ~2019-05-05 | XMS | Encounter Summary ---
Demographics + + + | Address | [address] | | | [place] [address] | + + + | Home Phone [...] [place] | | | | | [address] | | + + + + + Care Team Providers + +------+ + | Care Bingo Caller Name | Role | Phone | + [...] + + | 07/28/ | Hospital | [facility] | Chalino Chiu | Recurrent lung | | 2015 | Encounter | MED CTR XRAY [address] | MD Brittanie, FACS [address] | squamous cell | | | | [place] | [address] [place] | carcinoma, | | | | [place] [address] | [place] [address] | unspecified | | | | [phone] | [phone] | laterality (HCC) | | | | [...] | | | | | | [place] [address] | | | | | | [phone] | | | | | | | | +--------+ + + + + | 06/08/ | Office | Physical Medicine | Rocky Santos, | | | 2019 | Visit | and Rehabilitation | [address] | | | | | | [place] | | | | | | [address] | | | | | | | | +--------+ + + + + | 06/16/ | Appointment | Pulmonology | Eveline Jaffe | | | 2019 | | | MD [address] | | | | | | [address] [place] | | | | | | [place] [address] | | | | | | [phone] | | | | | | | | +--------+ + + + + | 06/16/ | Office | Pulmonology | Eveline Jaffe | | | 2019 | Visit | | MD Nichole [address] | | | | | | [address] [place] | | | | | | [place] [address] | | | | | | [phone] | | | | | | | | +--------+ + + + + | 08/24/ | Office | Cardiology | Anisha Lopez DO | | | 2019 | Visit | | [address] | | | | | | [place] | | | | | | [address] | | | | | | | [...] Radiologist interpretation, please see Chart Review. | [facility] | | | [facility] | | | [facility] | | | - IMAGING | + + + + + + + + | Performing | Address | City/State/Zipcode | Phone Number | | Organization | | | | + + + + + | [facility] | [address] | [place] | [phone] | | [facility] | | [address] | | | - IMAGING | | | | + + + + + documented in this encounter Visit Diagnoses + + | Diagnosis | + + | Recurrent lung squamous cell carcinoma, unspecified laterality (HCC) | + + documented in this encounter"
--- OUTSIDE RECORDS SUMMARY | ~2019-05-05 | XMS | Encounter Summary ---
Demographics + + + | Address | [address] | | | [place] [address] | + + + | Home Phone [...] [place] | | | | | [address] | | + + + + + Care Team Providers + +------+ + | Care Aircraft Powerplant Repairer Name | Role | Phone | [...] + + + + | 08/24/ | Hospital | [facility] | Offenstein, | Cough | | 2014 | Encounter | MED CTR XRAY [address] | Ayana Looney MD | | | | | [place] | | | | | | [place] [address] | | | | | | [phone] | | | +--------+ + + + [...] | | | | | [place] [address] | | | | | | [phone] | | | | | | | | +--------+ + + + + | 06/08/ | Office | Physical Medicine | Rocky Santos, | | | 2019 | Visit | and Rehabilitation | MD [address]ole [address] | | | | | | [place] | | | | | | [address] | | | | | | | | +--------+ + + + + | 06/16/ | Appointment | Pulmonology | Eveline Jaffe | | 2019 | | | Sherrin, MD [address] | | | | | | [address] [place] | | | | | | [place] [address] | | | | | | [phone] | | | | | | | | +--------+ + + + + | 06/16/ | Office | Pulmonology | Eveline Jaffe | | | 2019 | Visit | | MD Raul [address] | | | | | | [address] [place] | | | | | | [place] [address] | | | | | | [phone] | | | | | | | | +--------+ + + + + | 08/24/ | Office | Cardiology | Anisha Lopez DO | | | 2019 | Visit | | [address] | | | | | | [place] | | | | | | [address] | | | | | | | | +--------+ + + + + documented as of this encounter Procedures + +--------+ + + + | Procedure Name | Priori | Date/Time | Associated Diagnosis | Comments | | | ty | | | | + +--------+ + + + | XR CHEST PA AND | Routin | 08/24/2014 | Cough | Results for this | | LATERAL | e | 9:58 AM | | procedure are in the [...] FINDINGS: Stable left internal jugular line | [facility] | | with tip in the superior [...] [address] | [place] | [phone] | | [facility] | | [address] | | | - IMAGING | | | | + + + + + documented in this encounter Visit Diagnoses + + | Diagnosis | + + | Cough | + + documented in this encounter"
--- OUTSIDE RECORDS SUMMARY | ~2019-05-05 | XMS | Encounter Summary ---
Demographics + + + | Address | [address] | | | [place] [address] | + + + | Home Phone [...] [place] | | | | | [address] | | + + + + + Care Team Providers + +------+ + | Care Firer Boiler Name | Role | Phone | + [...] | RN | | | | | [place], | | | | | | [place] [address] | | | | | | [phone] | | | +--------+ + + + [...] | 2018 | Visit | | [address] | | | | | | [facility] | | | | | | [place] [address] | | | | | | [phone] | | | | | | | | +--------+ + + + + | 06/08/ | Office | Physical Medicine | Rocky Santos, | | | 2019 | Visit | and Rehabilitation | MD Nichole [address] | | | | | | [place] | | | | | | [address] | | | | | | | | +--------+ + + + + | 06/16/ | Appointment | Pulmonology | Eveline Jaffe | | | 2019 | | | MD Nichole Carter | | | | | | [address] [place] | | | | | | [place] [address] | | | | | | [phone] | | | | | | | | +--------+ + + + + | 06/16/ | Office | Pulmonology | Eveline Jaffe | | | 2019 | Visit | | MD Nichole Carter | | | | | | [address] [place] | | | | | | [place] [address] | | | | | | [phone] | | | | | | | | +--------+ + + + + | 08/24/ | Office | Cardiology | Anisha Lopez DO | | | 2019 | Visit | | [address] | | | | | | [place] | | | | | | [phone] | | | | | | | | +--------+ + + + + documented as of this encounter Visit Diagnoses Not on filedocumented in this encounter"
--- OUTSIDE RECORDS SUMMARY | ~2019-05-05 | XMS | Encounter Summary ---
Demographics + + + | Address | [address] | | | [place] [address] | + + + | Home Phone [...] [place] | | | | | [address] | | + + + + + Care Team Providers + +------+ + | Care Victorian Literature Professor Name | Role | Phone | [...] [place] | | | | | | [address] | | | | | | [phone] | | | +--------+ + + + [...] | | | | | [facility] | | | | | | [place] [address] | | | | | | [phone] | | | | | | | | +--------+ + + + + | 06/08/ | Office | Physical Medicine | Rocky Santos, | | | 2019 | Visit | and Rehabilitation | MD [address] | | | | | | [place] | | | | | | [address] | | | | | | | | +--------+ + + + + | 06/16/ | Appointment | Pulmonology | Eveline Jaffe | | | 2019 | | | MD Nichole [address] | | | | | | [address] [place] | | | | | | [place] [address] | | | | | | [phone] | | | | | | | | +--------+ + + + + | 06/16/ | Office | Pulmonology | Eveline Jaffe | | | 2019 | Visit | | MD Nichole Carter | | | | | | [address] | | | | | | [place] [address] | | | | | | [phone] | | | | | | | | +--------+ + + + + | 08/24/ | Office | Cardiology | Anisha Lopez DO | | | 2019 | Visit | | [address] | | | | | | [place] | | | | | | [phone] | | | | | | | | +--------+ + + + + documented as of this encounter Visit Diagnoses Not on filedocumented in this encounter"
--- OUTSIDE RECORDS SUMMARY | ~2019-05-05 | XMS | Encounter Summary ---
Demographics + + + | Address | [address] | | | [place] [address] | + + + | Home Phone [...] [place] | | | | | [address] | | + + + + + Care Team Providers + +------+ + | Care Goldbeater Name | Role | Phone | + +------+ + | Davis Ivan MD | PCP | | + +------+ + Encounter Details +--------+ + + + + | Date | Type | Department | Care Team | Description | +--------+ + + + + | 06/26/ | Hospital | [facility] | Conversion | Pain | | 2015 | Encounter | CONVERSION DEP [address] | Transaction, | | | | | [address] | Provider Unknown | | | | | [place] | [phone] | | | | | [address] | | | | | | [phone] | | | +--------+ + + + [...] | | | | | [place] [address] | | | | | | [phone] | | | | | | | | +--------+ + + + + | 06/08/ | Office | Physical Medicine | Rocky Santos, | | | 2019 | Visit | and Rehabilitation | [address] | | | | | | [place] | | | | | | [address] | | | | | | | | +--------+ + + + + | 06/16/ | Appointment | Pulmonology | Eveline Jaffe | | | 2019 | | | MD [address] | | | | | | [address] [place] | | | | | | [place] [address] | | | | | | [phone] | | | | | | | | +--------+ + + + + | 06/16/ | Office | Pulmonology | Eveline Jaffe | | | 2019 | Visit | | MD [address] | | | | | | [address] [place] | | | | | | [place] [address] | | | | | | [phone] | | | | | | | | +--------+ + + + + | 08/24/ | Office | Cardiology | Anisha Lopez DO | | | 2019 | Visit | | [address] | | | | | | [place] | | | | | | [address] | | | | | | | [...]
--- OUTSIDE RECORDS SUMMARY | ~2019-05-05 | XMS | Encounter Summary ---
Demographics + + + | Address | [address] | | | [place] [address] | + + + | Home Phone [...] [address] | | | | | [address] | | + + + + + Care Team Providers + +------+ + | Care Emergency Medical Technician Basic Name | Role | Phone | + +------+ + PCP | Unavailable | + +------+ + Encounter Details +--------+ + + + + | Date | Type | Department | Care Team | Description | +--------+ + + + + | 01/19/ | Hospital | [facility] | Silviano Cabrera MD | | | 2012 - | Encounter | [facility] [address] | [address] | | | | | [address] | [place], | | | 01/[birth year]/ | | [place], [place] | [place] [address] | | | 2012 | | [address] | [phone] | | | | | [phone] | | | +--------+ + + + [...] of this encounter Discharge Summaries Vidal Dalton - 01/28/2013 3:45 PM PDTFormatting of this note might be different from the or iginal. Discharge Summaries by RITA Rubio at 01/28/13 1545 Author: RITA Rubio Service: (none) Author Type: Advanced Registered Nurse Praclauren price Filed: 01/28/13 1548 Date of Service: 01/28/131544 Status: Signed Bobbin Handler: RITA Rubio (Advanced Registered Nurse Practitioner) [facility] Service: Orthopedic Surgery Brief Post-op Discharge Note DISCHARGE DIAGNOSES: Cervical Spondylolisthesis with Cervical myelomalacia C4-5 and C5-6 Procedures: Procedure(s) with comments: CERVICAL - DISC & FUSION - ANTERIOR - C4-6 This patient was transferred to the recovery area post-operatively and has experienced no d ifficulties at the time of my assessment. Her gait as well as fine motor movement improved p ost-op. The drain that was placed post-op was subsequently removed after POD#3. PT/OT was br ought in to help with therapy where she had significant improvement throughout the course of her hospital stay. Disposition: Home Condition: Stable Code Status: Prior Activity restrictions and use of [place]/Soft collar was d/w patient. Follow up: F/U at [facility] within 2 weeks. Discharge Medication List as of 01/23/2013 11:21 AM CONTINUE these medications which have NOT CHANGED Details albuterol (PROVENTIL) (2.5 MG/3ML) 0.083% nebulizer solution Take 2.5 mg by nebulization 3 (three) times daily. History of smoking, COPD, and asthma, Until Discontinued, Historical Me d aspirin 81 MG tablet Take 81 mg by mouth daily. , Until Discontinued, Historical Med Cholecalciferol (VITAMIN D) 2000 UNITS CAPS Take 1 capsule by mouth daily. , Until Discont inued, Historical Med cloNIDine (CATAPRES) 0.1 MG tablet Take 0.1 mg by mouth 2 (two) times daily., Until Discont inued, Historical Med diazepam (VALIUM) 10 MG tablet Take 10 mg by mouth every 6 (six) hours as needed., Until Di scontinued, Historical Med Ferrous Sulfate (IRON) 325 (65 FE) MG TABS Take 1 tablet by mouth daily., Until Discontinue d, Historical Med levothyroxine (SYNTHROID, LEVOTHROID) 75 MCG tablet Take 1 tablet by mouth daily., Starting 04/19/2012, Until Discontinued, Historical Med lisinopril (PRINIVIL,ZESTRIL) 10 MG tablet Take 1 tablet by mouth daily., Starting 04/22/20 12, Until Discontinued, Historical Med Magnesium 100 MG CAPS Take 1 tablet by mouth daily. , Until Discontinued, Historical Med methotrexate 2.5 MG tablet Take 25 tablets by mouth once a week. Takes on Thursday, Startin g 04/18/2012, Until Discontinued, Historical Med morphine (MSIR) 15 MG tablet Take 30 mg by mouth every 4 (four) hours as needed., Starting 04/16/2012, Until Discontinued, Historical Med omeprazole (PRILOSEC) 20 MG capsule Take 1 capsule by mouth 2 (two) times daily., Starting 04/20/2012, Until Discontinued, Historical Med PLAVIX 75 MG tablet Take 1 tablet by mouth daily., Starting 04/22/2012, Until Discontinued, Historical Med predniSONE (DELTASONE) 5 MG tablet Take 1 tablet by mouth 2 (two) times daily., Starting , Until Discontinued, Historical Med simvastatin (ZOCOR) 40 MG tablet Take 1 tablet by mouth daily., Starting 03/03/2012, Until D iscontinued, Historical Med venlafaxine (EFFEXOR-XR) 75 MG 24 hr capsule Take 1 capsule by mouth daily., Starting 04/12, Until Discontinued, Historical Med RITA [place] 01/28/2013 documented in this encounter Progress Notes Conversion Transaction, Provider Unknown - 01/23/2013 11:49 AM PDTFormatting of this note m ight be different from the original. Progress Notes by Corrine Polk RN at 01/23/13 1149 Author: Corrine Polk RN Service: (none) Author Type: Registered Nurse Filed: 01/23/13 1149 Date of Service: 01/23/131148 Status: Signed Bobbin Handler: Corrine Polk RN (Registered Nurse) Discharge instructions given to pt to include; prescriptions, follow up appt, discharge car e and what to notify the physician of once discharged. Pt denies any questions or concerns a t this time. IV discontinued and pt escorted out via WC. Corrine Polk RN 01/23/2013 11:49 AM lsi Martinez, PT - 01/23/2013 9:18 AM PDTFormatting of this note might be different from t he original. Progress Notes by Elsi Hernandez PT at 01/23/13917 Author: Elsi Hernandez PT Service: (none) Author Type: Physical Therapist Filed: 01/23/13926 Date of Service: 01/23/13917 Status: Signed Bobbin Handler: Elsi Hernandez PT (Physical Therapist) 01/23/13917 PT Last Visit PT Received On 01/23/13 Reason for Treatment Spinal surgery Requires PT Follow Up PT tech Assistance Required 1 person Precautions Spinal Precautions Cervical collar on when upright Other Comments Comments Pt ambulated in hallway with PT tech, reports that she is feeling better today, re ubaldo to go home today. Cognition Overall Cognitive Status WFL Orientation Level Oriented Bed Mobility Rolling Modified independent Supine to Sit Modified independent Sit to Supine Modified independent Transfers Sit to/from Stand Modified independent Mobility Ambulation Assistance Modified independent Maximal Ambulation Distance (feet) 400 Total Ambulation Distance (feet) 400 Distance limited by? Therapist/staff discretion Pattern Alternating Assistive Device Walker front wheeled Safety Devices Safety Devices in Place (call light in reach) Restraints Initially in Place No Plan Treatment/Interventions Amb with mobility aide Progress Improving as expected Recommendation Recommendations Return to prior living situation ELSI HERNANDEZ PT 01/23/2013 onversion Trans action, Provider Unknown - 01/22/2013 10:47 AM PDT Progress Notes by BLAIR Raymundo at 01/22/13 1047 Author: BLAIR Raymundo Service: (none) Author Type: Occupational Therapist Filed: 01/22/13 1135 Date of Service: 01/22/13 104 Status: Signed Bobbin Handler: BLAIR Raymundo (Occupational Therapist) 01/22/13 1047 Precautions Spinal Precautions Cervical ADL Additional Comments Pt. stated willingness to participate in therapy today. OT student comp leted AROM with pt. and pt. required verbal cues for technique. OT student completed educati on/review of precautions handout previously received. Pt. reported she had read over the pre cautions, and when asked what her precautions were, pt. was unable to list off her precautio ns. Pt. reported she completed grooming today in the bathroom standing, and pt. was educated on the implementation of precautions by sitting to complete grooming tasks and to use a buc ket to spit into and to bring it close to her rather than bending forward which breaks her p recautions. Pt. was educated on implementation of precautions when applying make up, washing her face, brushing teeth. Pt. stated she did not know she could not complete in the manner in which she did today. Pt. reported she was very tired today after having physical therapy, but would like to have someone come back and review her precautions with dressing technique s. OT student participated in therapy session today under the direct supervision of OTR/L. Cognition Overall Cognitive Status WFL Orientation Level Oriented Arm Goals Pt Will Perform AROM B UE;2 sets;10 reps;Without significant change in vital signs;With goo d activity tolerance (ST X 2 w/ handout LT X 3 independently) Pt Will Complete Theraputty Exer L UE;2 sets;Min resistance putty (yellow);With handout for visual cueing;With verbal cues;Independently (pt. reported completed this morning) Elsi Mathew PT - 01/22/2013 10:21 AM PDTFormatting of this note might be different from t janeth original. Progress Notes by Elsi Hernandez PT at 01/22/13 1021 Author: Elsi Hernandez PT Service: (none) Author Type: Physical Therapist Filed: 01/22/13 1040 Date of Service: 01/22/13 1021 Status: Signed Bobbin Handler: Elsi Hernandez PT (Physical Therapist) 01/22/13 1021 PT Last Visit PT Received On 01/22/13 Reason for Treatment Spinal surgery Requires PT Follow Up PT tech Assistance Required 1 person Precautions Spinal Precautions Cervical (Apen on when out of bed. ) Other Comments Comments Pt agreealbe to PT sathyaamtent, able to negotiate 3 stairs x 3 with supervision. Cognition Overall Cognitive Status WFL Orientation Level Oriented Bed Mobility Rolling Supervison Supine to Sit Supervision Sidelying to Sit Supervision Scooting Supervision Transfers Sit to/from Stand Supervision Bed to/from Chair Supervision Mobility Ambulation Assistance Supervision Maximal Ambulation Distance (feet) 560 Total Ambulation Distance (feet) 560 Distance limited by? Patient's ability Pattern Alternating Assistive Device Walker 4 wheeled Stairs Assistance Supervision Number of Stairs 3 x 3 Number of stairs limited by? Therapist/staff discretion Stair Management Technique [id number] Activity Tolerance Activity Tolerance Patient limited by fatigue Safety Devices Safety Devices in Place (call light in reach) Restraints Initially in Place No Plan Treatment/Interventions Amb with mobility aide Progress Improving as expected Recommendation Recommendations Return to prior living situation ELSI HERNANDEZ, PT 01/22/2013 Vidal Taylor - 8:21 AM PDT Progress Notes by RITA Rubio at 01/22/13820 Author: RITA Rubio Service: (none) Author Type: Advanced Registered Nurse Praclauren price Filed: 01/22/13822 Date of Service: 01/22/13820 Status: Signed Bobbin Handler: RITA Rubio (Advanced Registered Nurse Practitioner) [facility] Service: Orthopedic Surgery Progress Note Hospital Day: LOS: 3 days Post-Op Day: 3 Days Post-Op SUBJECTIVE Patient Summary: Coordination and gait much better post-op. Now her back pain appears to be acting up where she has a history of lumbar stenosis. Events Overnight: Slept better. Scheduled Medications acetaminophen 1,000 mg Intravenous Once acetaminophen 1,000 mg Oral Q8H LAKISHA albuterol 2.5 mg Nebulization 3 times daily cholecalciferol 2,000 Units Oral Daily cloNIDine 0.1 mg Oral BID ferrous sulfate (65 FE) 1 tablet Oral Daily levothyroxine 75 mcg Oral QAM AC lisinopril 10 mg Oral Daily Magnesium 125 mg Oral Daily omeprazole 20 mg Oral BID pneumococcal 23-valent vaccine 0.5 mL Intramuscular Once Immunization predniSONE 5 mg Oral BID simvastatin 40 mg Oral Nightly venlafaxine 75 mg Oral Daily DISCONTD: albuterol 2.5 mg Nebulization Q4H While awake Continuous Infusions sodium chloride 110 mL/hr at 01/21/13 1521 PRN Medications acetaminophen, acetaminophen, albuterol, diazepam, diazepam, HYDROmorphone, HYDROmorphone, morphine, ondansetron, ondansetron, oxyCODONE, oxyCODONE, oxyCODONE, phenol, polyethylene gl ycol, zolpidem OBJECTIVE Vital Signs: BP 188/89 | Pulse 55 | Temp 97.5 F (36.4 C) (Oral) | Resp 18 | Ht 1.575 m (5' 2") | Wt 79.5 kg (175 lb 4.3 oz) | BMI 32.06 kg/m2 | SpO2 97% {EXTENDEDVITALS:221 Drain minimal. Removed X1 today. NVI PROBLEM LIST Active Problems: * No active hospital problems. * ASSESSMENT & PLAN DC home. not comfortable taking care of her at home. Will stay another night and po ssibly DC to SNF vs home? Disposition: Surgical inpatient. Code Status: Full Code RITA [place] 01/22/2013 onversion [place] Sigala ider Unknown - 01/21/2013 3:02 PM PDTFormatting of this note might be different from the or iginal. Progress Notes by Denver Arias PTA at 01/21/13 1502 Author: Denver Arias PTA Service: (none) Author Type: Chartered Accountant Filed: 01/21/13 1503 Date of Service: 01/21/13 1502 Status: Signed Bobbin Handler: Denver Arias PTA (Chartered Accountant) 01/21/13 1502 PT Last Visit PT Received On 01/21/13 Requires PT Follow Up Yes Assistance Required 1 person Precautions Spinal Precautions Cervical;Cervical collar on when upright Cognition Overall Cognitive Status WFL Orientation Level Oriented Bed Mobility Rolling Supervison Sidelying to Sit Supervision Scooting Supervision Transfers Sit to/from Stand Supervision Bed to/from Chair Supervision Mobility Ambulation Assistance Supervision Maximal Ambulation Distance (feet) 800 Total Ambulation Distance (feet) 800 Distance limited by? Patient's ability Pattern Alternating;Decreased baron Assistive Device Walker 4 wheeled Activity Tolerance Activity Tolerance Patient limited by fatigue Plan Treatment/Interventions Continue per Primary PT POC Progress Progressing toward goals Recommendation Recommendations Return to prior living situation onver robert Transaction, Provider Unknown - 01/21/2013 11:35 AM PDT Progress Notes by ANNAMARIE Charlton/Colette at 01/21/13 1135 Author: ANNAMARIE Charlton/Colette Service: (none) Author Type: Occupational Therapist Filed: 01/21/13 1135 Date of Service: 01/21/13 1135 Status: Signed Bobbin Handler: ANNAMARIE Charlton/Colette (Occupational Therapist) 01/21/13 1117 THERAPUTTY EXERCISE Theraputty exercises Pullman Car Repairer (legal administrative assistant, pinch, twist for increased fine motor control in LUE) Repetitions completed 10 Repetitions completed 3 Time completed 15 Assistance provided demonstration, verbal cues on using the L hand. Cont per OTPOC. Pt positioned w/ HOB raised. Call light provided. onver robert Transaction, Provider Unknown - 01/21/2013 10:31 AM PDT Progress Notes by Denver Arias PTA at 01/21/13 1031 Author: Denver Arias PTA Service: (none) Author Type: Chartered Accountant Filed: 01/21/13 1032 Date of Service: 01/21/13 1031 Status: Signed Bobbin Handler: Denver Arias PTA (Chartered Accountant) 01/21/13 1031 PT Last Visit PT Received On 01/21/13 Requires PT Follow Up Yes Assistance Required 1 person Precautions Spinal Precautions Cervical;Cervical collar on when upright Cognition Overall Cognitive Status WFL Orientation Level Oriented Bed Mobility Supine to Sit Min assist (1 LE OOB) Scooting Minimal assist Transfers Sit to/from Stand Standby assist Bed to/from Chair Standby assist Mobility Ambulation Assistance Standby assist Maximal Ambulation Distance (feet) 150 Total Ambulation Distance (feet) 150 Distance limited by? Patient's ability Pattern Alternating;Decreased baron Assistive Device Walker 4 wheeled Activity Tolerance Activity Tolerance Patient limited by fatigue Plan Treatment/Interventions Continue per Primary PT POC Progress Progressing toward goals Recommendation Recommendations Return to prior living situation Ashlee Mazariegos - 01/20/2013 3:15 PM PDTFormatting of this note might be different from the origin al. Progress Notes by Ashlee Gomes PT at 01/20/13 1515 Author: Ashlee Gomes PT Service: (none) Author Type: Physical Therapist Filed: 01/20/131735 Date of Service: 01/20/13 1515 Status: Signed Bobbin Handler: Ashlee Gomes PT (Physical Therapist) 01/20/13 1515 PT Last Visit PT Received On 01/20/13 Reason for Treatment Spinal surgery Requires PT Follow Up Yes Follow up PT Only? No PT Eval/Reassessment Date 01/20/13 Assistance Required 1 person Precautions Spinal Precautions Cervical;Cervical collar on when upright Other Precautions fall risk Other Comments Comments Pt up in chair agreeable to tx. Reviewed with pt spinal precautions and to make s ure she changes her position (sit, stand, lay down) about every 45-min to prevent blood clot s and stress through spine. Ambulated with 4WW and her dog ambulating with tech nearby. Pt 's dog well mannered and did not get underfoot. Pt resting in chair at end of tx with signi akilah other at bedside, call light, phone & tray in reach. Cognition Overall Cognitive Status WFL Orientation Level Oriented Transfers Sit to/from Stand Standby assist Bed to/from Chair Standby assist Mobility Ambulation Assistance Standby assist Maximal Ambulation Distance (feet) 250 Total Ambulation Distance (feet) 250 Distance limited by? Patient's ability Pattern Alternating;Decreased baron Assistive Device Walker 4 wheeled Activity Tolerance Activity Tolerance Patient tolerated treatment without report of fatigue Plan Treatment/Interventions Continue with skilled PT services Progress Progressing toward goals Requires PT Follow Up Yes Recommendation Recommendations Return to prior living situation;Home with daytime assist Equipment Recommended Match Maker Ashlee Mazariegos 01/21/20 13 10:12 AM PDT Progress Notes by Ashlee Gomes PT at 01/20/13 1012 Author: Ashlee Gomes PT Service: (none) Author Type: Physical Therapist Filed: 01/20/131736 Date of Service: 01/20/13 1012 Status: Signed Bobbin Handler: Ashlee Gomes PT (Physical Therapist) 01/20/13 1012 PT Last Visit PT Received On 01/20/13 Reason for Treatment Spinal surgery (C4 - 6 fusion & diskectomy) Requires PT Follow Up Yes Follow up PT Only? No PT Eval/Reassessment Date 01/20/13 Assistance Required 1 person Case Filler Needed No Requires PT Follow Up Yes Precautions Spinal Precautions Cervical;Cervical collar on when upright Other Precautions fall risk Plan Treatment/Interventions Assist d/c plannning;Balance training;Family training;Gait training ;Monitor vital signs;Use of orthosis;Provide HEP;Review HEP;Review precautions;Set goals;Sta ir training;Therapeutic exercise;Transfer training PT Frequency 5-7x/wk;Once per day;Twice a day Care Duration (# of days) 4 # of days Home Environment Type of Home Home one story Bathroom Accessibility Accessible to equipment needs Home Equipment Walker 4 wheeled;Cane single point Additional Comments Uses 4WW in community & SPC in the home. Recommendation Recommendations Return to prior living situation;Home with 24 hr supervision/assist Equipment Recommended Match Maker Prior Function Level of [place] Household distance;Modified independent with functional mobility;Assi st with ADLs;Assist with IADLs (caregiver assist prn) Lives With Significant other (boyfriend Mirza of 14 years) Receives Help From Community agency Employment Retired for disability Comments community ambulation limited 2/2 significant LBP. Pt reports she has a caregiver apprx 80 hrs / month. Activity Tolerance Endurance Fair Sitting Balance Sits without support for > 30 sec RLE Assessment RLE Assessment WFL LLE Assessment LLE Assessment WFL Cognition Overall Cognitive Status WFL Orientation Level Oriented Vision-Basic Assessment Current Vision Wears glasses (supposed to wear all the time, but she doesn't) Assessment of Patient Status Assessment of Patient Status Decreased functional mobility;Decreased endurance;Precautions ;Pain Prognosis Should progress with skilled therapy intervention Ashlee Mazariegos 01/21/20 10:12 AM PDT Progress Notes by Ashlee Gomes PT at 01/20/13 1012 Author: Ashlee Gomes PT Service: (none) Author Type: Physical Therapist Filed: 01/20/13 1743 Date of Service: 01/20/13 1012 Status: Signed Bobbin Handler: Ashlee R Gomes, PT (Physical Therapist) 01/20/13 1012 PT Last Visit PT Received On 01/20/13 Reason for Treatment Spinal surgery (C4 - 6 fusion & diskectomy) Requires PT Follow Up Yes Follow up PT Only? No PT Eval/Reassessment Date 01/20/13 Assistance Required 1 person Case Filler Needed No Precautions Spinal Precautions Cervical;Cervical collar on when upright Other Precautions fall risk Other Comments Comments MD orders received, chart reviewed. PT initial eval complete. Pt does not recall many precautions. Reviewed cervical precautions and placement of aspen collar. Therapist p rovided total assist when donning aspen collar prior to pt getting OOB. Pt resting in chair at end of tx with call light, tray & phone in reach. Cognition Overall Cognitive Status WFL Orientation Level Oriented Bed Mobility Supine to Sit Mod assist (BLEs OOB or trunk to upright) Transfers Sit to/from Stand Standby assist Bed to/from Chair Standby assist Mobility Ambulation Assistance Standby assist Maximal Ambulation Distance (feet) 250 Total Ambulation Distance (feet) 250 Distance limited by? Patient's ability Pattern Alternating;Decreased baron Assistive Device Walker 4 wheeled Activity Tolerance Activity Tolerance Patient tolerated treatment without report of fatigue Safety Devices Safety Devices in Place Not applicable Restraints Initially in Place No Plan Treatment/Interventions Assist d/c plannning;Balance training;Family training;Gait training ;Monitor vital signs;Use of orthosis;Provide HEP;Review HEP;Review precautions;Set goals;Sta ir training;Therapeutic exercise;Transfer training PT Frequency 5-7x/wk;Once per day;Twice a day Care Duration (# of days) 4 # of days Requires PT Follow Up Yes Recommendation Recommendations Return to prior living situation;Home with 24 hr supervision/assist Equipment Recommended Match Maker Vidal Taylor - 01/20/2013 8:04 AM PDT Progress Notes by RITA Rubio at 01/20/13803 Author: RITA Rubio Service: (none) Author Type: Advanced Registered Nurse Practit ioner Filed: 01/20/13804 Date of Service: 01/20/13803 Status: Signed Bobbin Handler: RITA Rubio (Advanced Registered Nurse Practitioner) [facility] Service: Orthopedic Surgery Progress Note Hospital Day: LOS: 1 day Post-Op Day: 1 Day Post-Op SUBJECTIVE Patient Summary: Swallowing not too bad. Has not ambulated yet. Able to eat some alexandru kfast today.a Events Overnight: Unremarkable. Scheduled Medications acetaminophen 1,000 mg Intravenous Once acetaminophen 1,000 mg Oral Q8H LAKISHA bacitracin bupivacaine-EPINEPHrine PF ceFAZolin 1 g Intravenous Q8H cholecalciferol 2,000 Units Oral Daily cloNIDine 0.1 mg Oral BID ferrous sulfate (65 FE) 1 tablet Oral Daily levothyroxine 75 mcg Oral QAM AC lidocaine buffered 1% lisinopril 10 mg Oral Daily Magnesium 125 mg Oral Daily omeprazole 20 mg Oral BID pneumococcal 23-valent vaccine 0.5 mL Intramuscular Once Immunization predniSONE 5 mg Oral BID simvastatin 40 mg Oral Nightly venlafaxine 75 mg Oral Daily DISCONTD: albuterol 2.5 mg Nebulization Once DISCONTD: albuterol 2.5 mg Nebulization Q4H While awake DISCONTD: ceFAZolin 1 g Intravenous Once DISCONTD: cholecalciferol 2,000 Units Oral Daily DISCONTD: hydrALAZINE 10 mg Intravenous Q15 Min DISCONTD: hydrALAZINE 10 mg Intravenous Q15 Min DISCONTD: levothyroxine 75 mcg Oral QAM AC DISCONTD: lidocaine buffered 1% 0.5 mL Intradermal Once DISCONTD: lisinopril 10 mg Oral Daily DISCONTD: Magnesium 125 mg Oral Daily DISCONTD: midazolam 1 mg Intravenous Once DISCONTD: venlafaxine 75 mg Oral Daily Continuous Infusions sodium chloride 110 mL/hr at 01/20/13 0700 DISCONTD: electrolyte-A DISCONTD: electrolyte-A 30 mL/hr (01/19/13 1619) PRN Medications acetaminophen, acetaminophen, diazepam, diazepam, HYDROmorphone, HYDROmorphone, morphine, o ndansetron, ondansetron, oxyCODONE, oxyCODONE, oxyCODONE, polyethylene glycol, zolpidem, DIS CONTD: bacitracin, DISCONTD: bupivacaine-EPINEPHrine PF, DISCONTD: fentaNYL, DISCONTD: fenta NYL, DISCONTD: HYDROmorphone, DISCONTD: HYDROmorphone, DISCONTD: labetalol, DISCONTD: meperi dine, DISCONTD: metoclopramide, DISCONTD: morphine, DISCONTD: morphine DISCONTD: naloxone, DISCONTD: ondansetron, DISCONTD: promethazine OBJECTIVE Vital Signs: BP 138/74 | Pulse 56 | Temp 97.8 F (36.6 C) (Oral) | Resp 16 | Ht 1.575 m (5' 2") | Wt 76.4 kg (168 lb 6.9 oz) | BMI 30.81 kg/m2 | SpO2 94% {EXTENDEDVITALS:15102 Physical Exam Ortho Exam Drain 50cc 5-/5 bialteral deltoids strength. PROBLEM LIST Active Problems: * No active hospital problems. * ASSESSMENT & PLAN Ambulate with PT today. Disposition: Surgical inpatient Code Status: Full Code RITA [place]RO[place] 01/20/2013 onversion Transaction, Prov ider Unknown - 01/19/2013 5:36 PM PDTFormatting of this note might be different from the or iginal. 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) 01/19/131715 Home Environment Type of Home Home one story Home Exterior Layout Other (Comment);4-6 steps;Rail on L ascending (6 cement stairs) Home Interior Layout Lives on main level with bedroom/bathroom Bathroom Shower/Tub Tub/shower unit Bathroom Toilet Standard Bathroom Equipment Grab bars in shower/bath;Shower chair Bathroom Accessibility Accessible via walker Home Equipment Walker front wheeled;Walker 4 wheeled Prior Function Level of [place] Modified independent with functional mobility;Assist with ADLs;Assist with IADLs Lives With Spouse Leisure Hobbies-yes (Comment) (knit) ADL UE Dressing Assistance Moderate assist UE dressing impacted by Endurance;Pain LE Dressing Assistance Maximal assist Lower body dressing impacted by Endurance;Pain Additional Comments Pt has a caregiver in her home that assists w/ ADLs and I/ADLs. 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 MMT 4-/5 sh flex/ext) Hand Function Gross Grasp Impaired (reports dropping items) Impaired Gross Grasp Unable to hold objects in non-dominant hand Coordination Impaired;Slowed (in LUE) Assessment Assessment Decreased ADL status;Decreased UE strength;Decreased Safe judgement during ADL;D ecreased endurance;Decreased fine motor control;Decreased high-level ADLs;Decreased self-car e trans Prognosis Fair;With home health nursing/aide;With family Goal Formulation Patient ADL Goals Pt Will Perform LE Dressing In chair;With adaptive equipment;With min assist;Mod independen tly (STG: Min A w/ AE LTG: Mod I w/ AE and handout) LE Dressing Adaptive Equipment Sock aid;Match Maker;Elastic shoe laces;Button hook Arm Goals Pt Will Perform AROM B UE;2 sets;10 reps;With activity tolerance;Without significant change in vital signs;With good activity tolerance;3 sets (ST X 2 w/ handout LT X 3 independently) Pt Will Complete Theraputty Exer L UE;2 sets;Min resistance putty (yellow);With handout for visual cueing;With verbal cues;Independently (STG: legal administrative assistant/pinch/twist w/ vcs LTG: independent) Charity Farnsworth RPH - 01/19/2013 5:07 PM PDTFormatting of this note might be different from t janeth original. Progress Notes by Charity Leal RPH at 01/19/131706 Author: Charity Leal RPH Service: (none) Author Type: Pharmacist Filed: 01/19/131706 Date of Service: 01/19/131706 Status: Signed Bobbin Handler: Charity Leal RPH (Pharmacist) Clinical Pharmacy Note - Renal Dose Adjustment Thea Carmona 67 y.o. female Ht Readings from Last 1 Encounters: 01/19/13 1.575 m (5' 2") Wt Readings from Last 1 Encounters: 01/19/13 76.4 kg (168 lb 6.9 oz) CREATININE Date Value Range Status 01/13/2013 1.06* 0.50 - 1.00 mg/dL Final Testing performed at [facility], [address] [place] [address] Creatinine clearance cannot be calculated - Pharmacy to renally adjust medications per RITA Dalton Plan: No current Scr. Will follow up once labs are available. Pharmacy will continue to follow and adjust as appropriate. Pharmacist: Charity Leal 01/19/2013 5:07 PM docunitesh grissom in this encounter Plan of Treatment +--------+ + + + + | Date | Type | Specialty | Care Team | Description | +--------+ + + + + | 05/30/ | Office | Rheumatology | Santosh Sumner, | | | 2018 | Visit | | [address] | | | | | | [facility] | | | | | | [place] [address] | | | | | | [phone] | | | | | | | | +--------+ + + + + | 06/08/ | Office | Physical Medicine | Rocky Santos, | | | 2019 | Visit | and Rehabilitation | MD Nichole [address] | | | | | | [place] | | | | | | [address] | | | | | | | | +--------+ + + + + | 06/16/ | Appointment | Pulmonology | Eveline Jfafe | | | 2019 | | | MD [address] | | | | | | [address] [place] | | | | | | [place] [address] | | | | | | [phone] | | | | | | | | +--------+ + + + + | 06/16/ | Office | Pulmonology | Eveline Jaffe | | | 2019 | Visit | | MD [address] | | | | | | [address] [place] | | | | | | [place] [address] | | | | | | [phone] | | | | | | | | +--------+ + + + + | 08/24/ | Office | Cardiology | Anisha Lopez DO | | | 2019 | Visit | | [address] | | | | | | [place] | | | | | | [address] | | | | | | | | +--------+ + + + + documented as of this encounter Procedures + +--------+ + + + | Procedure Name | Priori | Date/Time | Associated Diagnosis | Comments | | | ty | | | | + +--------+ + + + | FL C ARM > 1 HOUR | Routin | 01/19/2013 | | Results for this | | | e | 1:49 PM | | procedure are in the | | | | PDT | | results section. | + +--------+ + + + documented in this encounter Results FL C-Arm > 1 Hour (01/19/2013 1:49 PM PDT) + + | Specimen | + + | | + + + + + | Narrative | Performed At | + + + | [facility] 1944 XR C-ARM FLUORO OVER 1 HOUR 01/19/2013 | | | 12:31 PM INDICATION: Surgery COMPARISON: CT, 12/14/12 | | | TECHNIQUE: Single lateral intraoperative fluoroscopic view | | | FINDINGS: The patient is status post anterior cervical disk fusion | | | from C4 through C6. There continues to be anterior listhesis of C4 | | | on C5 which is unchanged from previous study. IMPRESSION: 1. | | | Anterior cervical fusion extending from C4 through C6. | | | | | + + + + + | Procedure Note | + + | Fabián, Rad Conversion - 01/21/2019 4:40 PM [facility]1944XR C-ARM | | FLUORO OVER 1 HOUR01/19/2013 12:31 PM INDICATION: Surgery COMPARISON: CT, 12/14/12 | | TECHNIQUE: Single lateral intraoperative fluoroscopic view FINDINGS: The patient is | | status post anterior cervical disk fusion from C4 through C6. There continues to be | | anterior listhesis of C4 on C5 which is unchanged from previous study. IMPRESSION:1. | | Anterior cervical fusion extending from C4 through C6. | |COMPARISON: CT, 12/14/12 | | | |TECHNIQUE: Single lateral intraoperative fluoroscopic view | | | |FINDINGS: The patient is status post anterior cervical disk fusion from C4 through C6. The re continues to be anterior listhesis of C4 on C5 which is unchanged from previous study. | | | |IMPRESSION: | |1. Anterior cervical fusion extending from C4 through C6. | | | | | + + documented in this encounter Visit Diagnoses Not on filedocumented in this encounter
--- OUTSIDE RECORDS SUMMARY | ~2019-05-05 | XMS | Encounter Summary ---
Demographics + + + | Address | [address] | | | [place] [address] | + + + | Home Phone | | + + + | Preferred Language | Unknown | + + + | Marital Status | | + + + | Yazidi Affiliation | Unknown | + + + | Race | Unknown | + + + | Ethnic Group | Unknown | + + + Author + + + | Author | [facility] | | | and [place] | + + + | Organization | [facility] | | | [...] [place] | | | | | [address] | | + + + + + Care Team Providers + +------+ + | Care Plant Health Manager Name | Role | Phone | [...] + + | 08/22/ | Hospital | [facility] | Adelita Lu MD | 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 Discharged w/c With family. To radiation therapy Verified that patient has antinausea medications at [...] | | | | | [place] [address] | | | | | | [phone] | | | | | | | | +--------+ + + + + | 06/08/ | Office | Physical Medicine | Rocky Santos, | | | 2019 | Visit | and Rehabilitation | MD [address] | | | | | | [place] | | | | | | [address] | | | | | | | | +--------+ + + + + | 06/16/ | Appointment | Pulmonology | Eveline Jaffe | | 2019 | | | MD [address] | | | | | | [address] [place] | | | | | | [place] [address] | | | | | | [phone] | | | | | | | | +--------+ + + + + | 06/16/ | Office | Pulmonology | Eveline Jaffe | | | 2019 | Visit | | MD [address] | | | | | | [address] [place] | | | | | | [place] [address] | | | | | | [phone] | | | | | | | | +--------+ + + + + | 08/24/ | Office | Cardiology | Anisha Lopez DO | | 2019 | Visit | | [address] | | | | | | [place] | | | | | | [address] | | | | | | | | +--------+ + + + + documented as of this encounter Procedures + +--------+ + + + | Procedure Name | Priori | Date/Time | Associated Diagnosis | Comments | | | ty | | | | + +--------+ + + + | CBC WITH | STAT | 08/22/2014 | Recurrent squamous | Results for this | | DIFFERENTIAL | | 9:58 AM | cell carcinoma of | procedure are in the | | | | PDT | lung, unspecified | results section. | | | | | laterality (HCC) | | | | | | Pulmonary nodules | | + +--------+ + + + | COMPREHENSIVE | STAT | 08/22/2014 | Recurrent squamous | Results for this | | METABOLIC PANEL | | 9:58 AM | cell carcinoma of | procedure are in the | | | | PDT | lung, unspecified | results section. | | | | | laterality (HCC) | | | | | | Pulmonary nodules | | + +--------+ + + + documented in this encounter Results CBC with Differential (08/22/2014 9:58 AM PDT) + + + + + + | Component | Value | Ref Range | Performed | Pathologist | | | | | At | Signature | + + + + + + | WBC | 4.6 | 4.0 - 11.0 K/uL | [facility] | | | | | | [facility] | [facility] | | | | | [facility] - | | | | | | LABORATORY | | + + + + + + | RBC | 3.73 | 3.70 - 5.20 | [facility] | | | | | M/uL | [facility] | | | [facility] | [facility] | | | | | | [facility] - | | | | | | LABORATORY | | + + + + + + | Hemoglobin | 11.4 (L) | 11.5 - 16.0 | [facility] | | | | | g/dL | [facility] | | | [facility] | [facility] | | | | | | [facility] - | | | | | | LABORATORY | | + + + + + + | Hematocrit | 35.4 | 34.0 - 47.0 % | [facility] [...] + + + + | % | 81.9 | 45.0 - 82.0 % | [facility] | | | Neutrophils | | | [facility] | | | | | | [facility] | | | | | | C[facility] - | | | | | | LABORATORY | | + + + + + + | % | 8.8 (L) | 20.0 - 45.0 % | [facility] | | | Lymphocytes | | | [facility] | | | | | | [facility] | | | | | | CENTER - | | | | | | LABORATORY | | + + + + + + | % Monocytes | 7.4 | 4.0 - 12.0 % | [facility] | | | | | | [facility] | | | | [facility] | [facility] | | | | | | [facility] - | | | | | | LABORATORY | | + + + + + + | % | 0.9 | 0.0 - 5.0 % | [facility] [...] + + + + | Absolute | 3.70 | 1.80 - 8.50 | [facility] | | | Neutrophils | | K/uL | [facility] | | | | | | [facility] | | | | | | CENTER - | | | | | | LABORATORY | | + + + + + + | Absolute | 0.40 (L) | 0.60 - 3.20 | [facility] [...] [address] | [place] | [phone] | | [facility] | | [address] | | | - LABORATORY | | | | + + + + + Comprehensive Metabolic Panel (08/22/2014 9:58 AM PDT) + + + + + [...] 12 | 7 - 18 mg/dL | [facility] | | | | | | [facility] | | | | [facility] | [facility] | | | | | | C[facility] - | | | | | | LABORATORY | | + + + + + + | Creatinine | 0.80 | 0.60 - 1.30 | [facility] | | | | | mg/dL | [facility] | | | | | | [facility] | | | | | | CENTER - | | | | | | LABORATORY | | + + + + + + | eGFR if not | >60Comment: GLOMERULAR | >=60 | [facility] | | | | FILTRATION | mL/min/1.73m2 | [facility] | | | [place] | RATE,ESTIMATED | | MEDICAL | | | | mL/min/1.97r2Ownf than | | CENTER - | | [...] | 8.6 | 8.3 - 10.5 | [facility] | [...] + + + + | Total | 6.0 | 6.0 - 7.8 g/dL | [facility] [...] + + | Globulin | 2.9 | g/dL | [facility] | | | | | | [facility] | | | | | | [facility] | | | | | | CENTER - | | | | | | LABORATORY | | + + + + + + | Albumin/Mattie | 1.1 | | [facility] | | | bulin Ratio | | | [facility] | | | | | [facility] | | | | | | CENTER - | | | | | | LABORATORY | | + + + + + + | BUN/Creatin | 15.0 | | [facility] | | | ine [...] ST. | [address] | [place] | [phone] | | [facility] | | [address] | | | - LABORATORY | | [...] (PARAPLATIN) 190 mg | New Bag | 08/23/19 | 190 mg | 538 | | | in sodium chloride 0.9% 250 mL | | 15 12:41 | | mL/hr | | | chemo infusion 190 mg (Target | | PM PDT | | | | | AUC = 2), Intravenous, Administer | | | | | | | over 30 Minutes, ONCE, Tue | | | | | | | 08/22/14 at 1115, For 1 dose, AUC | | | [...] +-------+---+---+ | diphenhydrAMINE (BENADRYL) | Given | 08/23/19 | 25 mg | | | | injection 25 mg 25 mg, | | 15 11:07 | | | | | Intravenous, ONCE, 08/22/14 at | | AM PDT | | | | | 1115, For 1 dose, Administer 30 | | | | | | | minutes prior to PACLitaxel ., | | | | | | + +-------+ +-------+---+---+ +---+---+ | | | +---+---+ + +-------+ +-------+---+---+ | famotidine (PEPCID) injection | Given | 08/23/19 | 20 mg | | | | 20 mg 20 mg, Intravenous, ONCE, | | 15 11:08 | | | | | 08/22/14 at 1115, For 1 dose, | | AM PDT [...] 100 units/mL flush 500 | Given | 08/23/19 | 500 | | | | Units 500 Units (5 mL), | | 15 1:22 | Units | | | | Intracatheter, PRN, Line Care, | | PM PDT | | | | | Starting 08/22/14 at 1058 | | | | | | + +-------+ +-------+---+---+ +---+---+ | | | +---+---+ + +---------+ +-------+--------+---+ | PACLitaxel (TAXOL) 81 mg in | New Bag | 08/23/19 | 81 mg | 263.5 | | | sodium chloride 0.9% 250 mL chemo | | 15 11:36 | | mL/hr | | | infusion 81 mg (rounded from | | AM PDT | | | | | 80.1 mg = 45 mg/m2 | | | | | | | 1.78 m2 Treatment plan recorded | | | | | | | BSA), Intravenous, Administer | | | | | | | over 1 Hours, ONCE, 08/22/14 | | | | | | | at 1145, For 1 dose, | | | | [...] (ALOXI) 0.25 mg, | New Bag | 08/23/19 | | 209.3 | | | dexamethasone (DECADRON) 8 mg in | | 15 11:12 | | mL/hr | | | sodium chloride 0.9% 50 mL IVPB | | AM PDT | | | | | Intravenous, Administer over 16 | | | | | | | Minutes, ONCE, 08/22/14 at | | | | | | | 1115, For 1 dose | | | | | | + +---------+ +---+--------+---+ +---+---+ | | | +---+---+ documented in this encounter"
--- OUTSIDE RECORDS SUMMARY | ~2019-05-05 | XMS | Encounter Summary ---
Demographics + + + | Address | [address] | | | [place] [address] | + + + | Home Phone | | + + + | Preferred Language | Unknown | + + + | Marital Status | | + + + | Baptist Affiliation | Unknown | + + + | Race | Unknown | + + + | Ethnic Group | Unknown | + + + Author + + + | Author | [facility] | | | and [place] | + + + | Organization | [facility] | | [...] [place] | | | | | [address] | | + + + + + Care Team Providers + +------+ + | Care Sash Assembler Name | Role | Phone | [...] Edmond Azar | | | | | [phone] | [place] [address] | | +--------+ + + + + [...] | | | | | [place] [address] | | | | | | [phone] | | | | | | | | +--------+ + + + + | 06/08/ | Office | Physical Medicine | Rocky Santos | | | 2019 | Visit | and Rehabilitation | MD [address]ole [address]is | | | | | | [place] | | | | | | [address] | | | | | | | | +--------+ + + + + | 06/16/ | Appointment | Pulmonology | Eveline Jfafe | | 2019 | | | MD [address] | | | | | | [address] | | | | | | [place] [address] | | | | | | [phone] | | | | | | | | +--------+ + + + + | 06/16/ | Office | Pulmonology | Eveline Jaffe | | | 2019 | Visit | | MD Raul [address] | | | | | | [place] [address] | | | | | | [place] [address] | | | | | | [phone] | | | | | | | | +--------+ + + + + | 08/24/ | Office | Cardiology | Anisha Lopez DO | | | 2019 | Visit | | [address] | | | | | | [place] | | | | | | [address] | | | | | | | [...]
--- OUTSIDE RECORDS SUMMARY | ~2019-05-05 | XMS | Encounter Summary ---
Demographics + + + | Address | [address] | | | [place] [address] | + + + | Home Phone [...] [place] | | | | | [address] | | + + + + + Care Team Providers + +------+ + | Care Postal Service Sectional Center Manager Name | Role | Phone | + +------+ + | Caitlin Chino MD | PCP | | + +------+ + Reason for Visit + + + | Reason | Comments | + + + | Results, Imaging | | + + + Encounter Details +--------+ + + + + | Date | Type | Department | Care Team | Description | +--------+ + + + + | 04/25/ | Telephone | [facility] | Rocky Santos, | Results, Imaging | | 2019 | | PHYSIATRY [address] | MD [address] | | | | | [employer] [place], | [place] | | | | | [place] [address] | [address] | | | | | [phone] | | | +--------+ + + + [...] | | | | | [place] [address] | | | | | | [phone] | | | | | | | | +--------+ + + + + | 06/08/ | Office | Physical Medicine | Rocky Santos, | | | 2019 | Visit | and Rehabilitation | [address] | | | | | | [place] | | | | | | [address] | | | | | | | | +--------+ + + + + | 06/16/ | Appointment | Pulmonology | Eveline Jaffe | | 2019 | | | MD [address] | | | | | | [address] [place] | | | | | | [place] [address] | | | | | | [phone] | | | | | | | | +--------+ + + + + | 06/16/ | Office | Pulmonology | Eveline Jaffe | | | 2019 | Visit | | MD Nichole Carter | | | | | | [address] [place] | | | | | | [place] [address] | | | | | | [phone] | | | | | | | | +--------+ + + + + | 08/24/ | Office | Cardiology | Anisha Lopez DO | | 2019 | Visit | | [address] | | | | | | [place] | | | | | | [address] | | | | | | | | +--------+ + + + + documented as of this encounter Visit Diagnoses Not on filedocumented in this encounter"
--- OUTSIDE RECORDS SUMMARY | ~2019-05-05 | XMS | Encounter Summary ---
Demographics + + + | Address | [address] | | | [place] [address] | + + + | Home Phone [...] [place] | | | | | [address] | | + + + + + Care Team Providers + +------+ + | Care Client Services Representative Name | Role | Phone | [...] [address] | | | | | [place], | [place] | | | | | [place] [address] | [place] [address] | | | | | [phone] | [phone] | | | | | | | [...] | | | | | [place] [address] | | | | | | [phone] | | | | | | | | +--------+ + + + + | 06/08/ | Office | Physical Medicine | Rocky Santos, | | | 2019 | Visit | and Rehabilitation | MD [address] | | | | | | [place] | | | | | | [address] | | | | | | | | +--------+ + + + + | 06/16/ | Appointment | Pulmonology | Eveline Jaffe | | 2019 | | | MD [address] | | | | | | [place] | | | | | | [place] [address] | | | | | | [phone] | | | | | | | | +--------+ + + + + | 06/16/ | Office | Pulmonology | Eveline Jaffe | | | 2019 | Visit | | MD Raul [address] | | | | | | [place] | | | | | | [place] [address] | | | | | | [phone] | | | | | | | | +--------+ + + + + | 08/24/ | Office | Cardiology | Anisha Lopez DO | | | 2019 | Visit | | [address] | | | | | | [place] | | | | | | [phone] | | | | | | | [...] + | Performed at: 01 - [facility] [place] [address], | REFERENCE LAB | | [place], [place] [id number] Patent Agent: Kodak Collins MD, Phone: | [facility] | | [phone] | | + + + + + + + + | Performing | Address | City/State/Zipcode | Phone Number | | Organization | | | | + + + + + | REFERENCE LAB | [address] | [place] [address] | [phone] | | [facility] | Noelle [address]ales [...] [address] | [place] | [phone] | | [facility] | | [address] | | | - LABORATORY | | | | + + + + + documented in this encounter Visit Diagnoses + + | Diagnosis | + + | Tachypnea | + + documented in this encounter"
--- OUTSIDE RECORDS SUMMARY | ~2019-05-05 | XMS | Encounter Summary ---
Demographics + + + | Address | [address] | | | [place] [address] | + + + | Home Phone | | + + + | Preferred Language | Unknown | + + + | Marital Status | | + + + | Mosque Affiliation | Unknown | + + + [...] [place] | | | | | [address] | | + + + + + Care Team Providers + +------+ + | Care Measuring Clerk Name | Role | Phone | [...] + + | 09/24/ | Office [facility] [place] | Giuliano Padilla, | Trigger thumb of | | 2019 | Visit | ORTHOPEDIC SURGERY | MD Germania BARON | left hand (Primary | | | | [address] | [place] | Dx); Trigger finger, | | | | [place] | [address] | left index finger; | | | | [address] | | Trigger finger, left | | | | [phone] | | middle finger | +--------+---------+ + [...] | | | | | [place] [address] | | | | | | [phone] | | | | | | | | +--------+ + + + + | 06/08/ | Office | Physical Medicine | Rocky Santos, | | | 2019 | Visit | and Rehabilitation | MD [address] | | | | | | [place] | | | | | | [address] | | | | | | | | +--------+ + + + + | 06/16/ | Appointment | Pulmonology | Eveline Jaffe | | | 2019 | | | MD [address] | | | | | | [address] [place] | | | | | | [place] [address] | | | | | | [phone] | | | | | | | | +--------+ + + + + | 06/16/ | Office | Pulmonology | Eveline Jaffe | | | 2019 | Visit | | MD [address] | | | | | | [address] [place] | | | | | | [place], [place] [address] | | | | | | [phone] | | | | | | | | +--------+ + + + + | 08/24/ | Office | Cardiology | Anisha Lopez DO | | | 2019 | Visit | | [address] | | | | | | [place] | | | | | | [address] | | | | | | | [...]
--- OUTSIDE RECORDS SUMMARY | ~2019-05-05 | XMS | Encounter Summary ---
Demographics + + + | Address | [address] | | | [place] [address] | + + + | Home Phone | | + + + | Preferred Language | Unknown | + + + | Marital Status | | + + + | Confucianism Affiliation | Unknown | + + + | Race | Unknown | + + + | Ethnic Group | Unknown | + + + Author + + + | Author | [facility] | | | and [place] | + + + | Organization | [facility] | | [...] [place] | | | | | [address] | | + + + + + Care Team Providers + +------+ + | Care Instrument Maintenance Supervisor Name | Role | Phone | + +------+ + | Davis Ivan MD | PCP | | + +------+ + Encounter Details +--------+ + + + + | Date | Type | Department | Care Team | Description | +--------+ + + + + | 01/09/ | Hospital | [facility] | Adelita Lu MD | Squamous cell | | 2013 | Encounter | MED CTR MEDICAL | [address] [facility] | carcinoma of lung, | | | | ONCOLOGY CLINIC [address] | [place], [place] | stage II, right | | | | [facility] | [address] | (HCC) (Primary Dx); | | | | [place] [address] | [phone] | Squamous cell | | | | [phone] | | carcinoma of lung, | | [...] 01/09/2014 4:19 PM PDT Hem-Onc Progress Note [facility] Patient name:Thea Carmona : 1945 Age: 68 y.o. CSN: [id number] Date of Service: 01/09/2014 Identifying Statement: Thea Carmona is a 68 y.o. female from [facility] with clinical stage II, pathologic stage IB [...] lewis 2.CT-guided biopsy by interventional radiology at [facility] of the right lung [...] She fariba t to the ER at [facility] with excrutiating arthritis pain. Past Medical History: Past Medical History Diagnosis Date COPD (chronic obstructive pulmonary disease) ([facility]) on albuterol Spondylolisthesis of cervical region Spinal stenosis has tried cortisone injections Osteoporosis Depression Pneumonia 2009 hospitalized 5 days Rheumatoid arthritis(714.0) ([facility]) on prednisone and methotrexate, Dr. Lewis [place] Hyperlipidemia on simvastatin Hypertension on clonidine and lisinopril Hypothyroidism GERD (gastroesophageal reflux disease) Stroke ([facility]) 2006 Stroke ([facility]) 2007 Squamous cell carcinoma of lung ([facility]) 07/2013 MARCE (obstructive sleep apnea) [...] mg by mouth Daily. RESPIRATORY THERAPY SUPPLIES [facility] ResMed S9 auto CPAP 5-9 cm H2O. Heater and Humidifier . All necessary supplies. AHI 11.6. Diagnosis Code(s)327.23, also has co morbid hypertension , history of stroke. Length of Need 99 months. Please send order to [facility]. RESPIRATORY THERAPY SUPPLIES [facility] Respironics autotitrating CPAP at 5-9 cm H2O [...] a followup CT scan set up in [facility] in 6 month s Followup after that Total time face to face discussion with the patient and family was 20 minutes, more than 5 0% of the time was spent counseling and coordination of care. Adelita Lu MD Portions of this chart may have been created with [employer]aptee voice recognition software. Occasi onal wrong-word or [...] She fariba t to the ER at [facility] with excrutiating arthritis pain. They gave her [...] | 2018 | Visit | | [address] | | | | | | [facility] | | | | | | [place] [address] | | | | | | [phone] | | | | | | | | +--------+ + + + + | 06/08/ | Office | Physical Medicine | Rocky Santos, | | | 2019 | Visit | and Rehabilitation | MD Nichole Hinds [address] | | | | | | [place] | | | | | | [address] | | | | | | | | +--------+ + + + + | 06/16/ | Appointment | Pulmonology | Eveline Jaffe | | | 2019 | | | MD Nichole Carter [address] | | | | | | [address] [place] | | | | | | [place] [address] | | | | | | [phone] | | | | | | | | +--------+ + + + + | 06/16/ | Office | Pulmonology | Eveline Jaffe | | | 2019 | Visit | | MD Nichole Carter [address] | | | | | | [address] [place] | | | | | | [place] [address] | | | | | | [phone] | | | | | | | | +--------+ + + + + | 08/24/ | Office | Cardiology | Anisha Lopez DO | | | 2019 | Visit | | [address] | | | | | | [place] | | | | | | [address] | | | | | | | [...] | | FILTRATION | mL/min/1.73m2 | [facility] | | | [place] | RATE,ESTIMATED | | MEDICAL | | | | mL/min/1.12e6Wdmm than | | CENTER - | | [...] | | | | mg/dL | [facility] | | | | | | MEDICAL | | | | | | CENTER - | | | | | | LABORATORY | | + + + + + + | Albumin | 3.1 (L) | 3.2 - 5.0 g/dL | [facility] | | | | | | [facility] | | | | | [...] [address] | [place] | [phone] | | [facility] | | [address] | | | - LABORATORY | | | | + + + + + | [facility] | [address] | [place] | | | [facility] | | [address] | | | - LABORATORY | | [...] + | [facility] | [address] | [place] | [phone] | | [facility] | | [address] | | | - LABORATORY | | | | + + + + + | [facility] | [address] | [place], [place] | | | [facility] | | [address] | | | - LABORATORY | | [...]
--- OUTSIDE RECORDS SUMMARY | ~2019-05-05 | XMS | Encounter Summary ---
Demographics + + + | Address | [address] | | | [place] [address] | + + + | Home Phone | | + + + | Preferred Language | Unknown | + + + | Marital Status | | + + + | Worship Affiliation | Unknown | + + + | Race | Unknown | + + + | Ethnic Group | Unknown | + + + Author + + + | Author | [facility] | | | and [place] | + + + | Organization | [facility] | | | [...] [place] | | | | | [address] | | + + + + + Care Team Providers + +------+ + | Care Hearing Healthcare Practitioner Name | Role | Phone | [...] + + | 03/09/ | Refill | [facility] | Anahy Forbes RN | Medication Refill | | 2014 | | MED CTR MEDICAL | | | | | | ONCOLOGY CLINIC [address] | | | | | | [address] | | | | | | [place] [address] | | | | | | [phone] | | | +--------+--------+ + + + [...] | | | | | [place] [address] | | | | | | [phone] | | | | | | | | +--------+ + + + + | 06/08/ | Office | Physical Medicine | Rocky Santos, | | | 2019 | Visit | and Rehabilitation | [address] | | | | | | [place] | | | | | | [address] | | | | | | | | +--------+ + + + + | 06/16/ | Appointment | Pulmonology | Eveline Jaffe | | | 2019 | | | MD Nichole Carter [address] | | | | | | [address] [place] | | | | | | [place] [address] | | | | | | [phone] | | | | | | | | +--------+ + + + + | 06/16/ | Office | Pulmonology | Eveline Jaffe | | | 2019 | Visit | | MD Nichole Carter [address] | | | | | | [address] [place] | | | | | | [place] [address] | | | | | | [phone] | | | | | | | | +--------+ + + + + | 08/24/ | Office | Cardiology | Anisha Lopez DO | | | 2019 | Visit | | [address] | | | | | | [place] | | | | | | [address] | | | | | | | | +--------+ + + + + documented as of this encounter Visit Diagnoses + + | Diagnosis | + + | Gastroesophageal reflux disease without esophagitis - Primary Esophageal reflux | + + documented in this encounter"
--- OUTSIDE RECORDS SUMMARY | ~2019-05-05 | XMS | Encounter Summary ---
Demographics + + + | Address | [address] | | | [place] [address] | + + + | Home Phone [...] [place] | | | | | [address] | | + + + + + Care Team Providers + +------+ + | Care Circulation Clerk Name | Role | Phone | [...] [place] | | | | | [phone] | [place] [address] | | +--------+ + + + + [...] | | | | | [place] [address] | | | | | | [phone] | | | | | | | | +--------+ + + + + | 06/08/ | Office | Physical Medicine | Rocky Santos | | | 2019 | Visit | and Rehabilitation | MD [address] | | | | | | [place] | | | | | | [address] | | | | | | | | +--------+ + + + + | 06/16/ | Appointment | Pulmonology | Eveline Jaffe | | 2019 | | | MD [address] | | | | | | [address] | | | | | | [place] [address] | | | | | | [phone] | | | | | | | | +--------+ + + + + | 06/16/ | Office | Pulmonology | Eveline Jaffe | | | 2019 | Visit | | MD Raul [address] | | | | | | [place] | | | | | | [place] [address] | | | | | | [phone] | | | | | | | | +--------+ + + + + | 08/24/ | Office | Cardiology | Anisha Lopez DO | | | 2019 | Visit | | [address] | | | | | | [place] | | | | | | [address] | | | | | | | [...]
--- OUTSIDE RECORDS SUMMARY | ~2019-05-05 | XMS | Encounter Summary ---
Demographics + + + | Address | [address] | | | [place] [address] | + + + | Home Phone [...] [place] | | | | | [address] | | + + + + + Care Team Providers + +------+ + | Care Travel Trailer Components Assembler Name | Role | Phone | [...] | | Cough | Offenstein, | [address] | | | | | Procedures | Ayana B, | [place], | | | | | CT Chest w | MD [address] | [place] [address] | | | | | Contrast | [address] | Phone: | | | | | | [place], | [phone] | | | | | | [place] [address] | Fax: | | | | | | | [phone] | +--------+--------+ + + + + Reason for Visit +--------+ + | Reason | Comments | +--------+ + | COPD | | +--------+ + Encounter Details +--------+---------+ + + + | Date | Type | Department | Care Team | Description | +--------+---------+ + + + | 08/24/ | Office | [facility] | [place]enstein, | Cough (Primary Dx); | | 2014 | Visit | PULMONARY [address] | Ayana Looney MD | COPD (chronic | | | | [address] [place], | | obstructive | | | | [place] [address] | | pulmonary disease); | | | | [phone] | | Recurrent squamous | | | [...] a [facility] from Dr. [...] Pneumonia 2009 hospitalized 5 days Rheumatoid arthritis(714.0) ([facility]) on prednisone and methotrexate, Dr. Lewis [place] Hyperlipidemia on simvastatin Hypertension on clonidine and lisinopril Hypothyroidism GERD (gastroesophageal reflux disease) Stroke ([facility]) 2007 Stroke (HCC) 2008 Squamous cell carcinoma [...] 07/11/2014 EBUS with right hilar LN biopsy, [facility] Dr. 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 Respiratory Therapy Supplies [facility] ResMed S9 auto CPAP 5-9 cm H2O. [...] made to ensure accuracy; however, inadvertent computerized personal care attendant errors may be pre sent. documented in [...] | | | | | [place] [address] | | | | | | [phone] | | | | | | | | +--------+ + + + + | 06/08/ | Office | Physical Medicine | Rocky Santos, | | | 2019 | Visit | and Rehabilitation | [address] | | | | | | [place] | | | | | | [address] | | | | | | | | +--------+ + + + + | 06/16/ | Appointment | Pulmonology | Eveline Jaffe | | | 2019 | | | MD Nichole Carter | | | | | | [address] [place] | | | | | | [place] [address] | | | | | | [phone] | | | | | | | | +--------+ + + + + | 06/16/ | Office | Pulmonology | Eveline Jaffe | | | 2019 | Visit | | MD Nichole Carter [address] | | | | | | [address] [place] | | | | | | [place] [address] | | | | | | [phone] | | | | | | | | +--------+ + + + + | 08/24/ | Office | Cardiology | Anisha Lopez DO | | | 2019 | Visit | | [address] | | | | | | [place] | | | | | | [address] | | | | | | | [...] and XRT, known recurrent lung cancer COMPARISON: [facility] | | radiographs August 24 and [...] + | [facility] [facility] | [address] | [place], [place] | [phone] | | [facility] | | [address] | | | - IMAGING | | [...]
--- OUTSIDE RECORDS SUMMARY | ~2019-05-05 | XMS | Encounter Summary ---
Demographics + + + | Address | [address] | | | [place] [address] | + + + | Home Phone [...] [place] | | | | | [address] | | + + + + + Care Team Providers + +------+ + | Care Ironworker Apprentice Name | Role | Phone | [...] + + | Closed | Specialty | Dental Nurse | Diagnoses | Taisha, | Nancy, | | | Services | | Rheumatoid | Santosh, | GERDA Rhoades | | | Required | | arthritis, | PA-Avila [address] | [address] | | | | | involving | [place] | [address] | | | | | unspecified | PLACE | [place], [place] | | | | | [facility], | [facility], | [address] Phone: | | | | | unspecified | [place] [address] | [phone] | | | | | rheumatoid | Phone: | | | | | | factor | [phone] | | | | | | presence | Fax: | | | | | | ([facility]) | [phone] | | +--------+ + + + + [...] [place] [address] | | | | | ([facility]), | [address] | [place], [place] | | | | | Billed out | [place], | [address] | | | | | for M13.00 | [place] | Phone: | | | | | | [address] | [phone] | | | | | | Phone: | Fax: | | | | | | [phone] | [phone] | | | | | | Fax: | | | | | | | [phone] | | + +--------+ + + + + Encounter Details +--------+---------+ + + + | Date | Type | Department | Care Team | Description | +--------+---------+ + + + | 02/22/ | Office | [facility] | Santosh Sumner, | Rheumatoid | | 2019 | Visit | RHEUMATOLOGY [address] | PA-C [address] | arthritis, involving | | | | [facility] | unspecified site, | | | | [place], [place] | [place] [address] | unspecified | | | | [address] | [phone] | rheumatoid factor | | | | [phone] | | presence (HCC) | | | [...] encounter Patient Instructions Patient Instructions Duyen Gonsalves, Patient Care Provider - 02/22/2019 1:50 PM PDTWe hop e that you have experienced exceptional care today and that you found our service to be cour teous and helpful. ? If you have any questions/concerns or need medication refills you can send us a message/r equest using [employer] or by calling our office at [phone]. o If you would like to reach my certified medical biller, Eileen Gonsalves please call [phone] Ext: [phone] ? If you are unable to reach [...] can also look at your results on [employer] If you are experiencing an emergency, please [...] cancer: She is a 69-year-old woman from [facility] who was previously being diagnosed with mo [...] arthritis(714.0) on prednisone and methotrexate, Dr. 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 Laboratory results were reviewed in [facility] as well as chart notes and [...] | | | | | [place] [address] | | | | | | [phone] | | | | | | | | +--------+ + + + + | 06/08/ | Office | Physical Medicine | Rocky Satnos, | | | 2019 | Visit | and Rehabilitation | MD [address] | | | | | | [place] | | | | | | [address] | | | | | | | | +--------+ + + + + | 06/16/ | Appointment | Pulmonology | Eveline Jaffe | | | 2019 | | | MD Nich[address] | | | | | | [address] [place] | | | | | | [place] [address] | | | | | | [phone] | | | | | | | | +--------+ + + + + | 06/16/ | Office | Pulmonology | Eveline Jaffe | | | 2019 | Visit | | MD Nichole Carter [address] | | | | | | [address] [place] | | | | | | [place] [address] | | | | | | [phone] | | | | | | | | +--------+ + + + + | 08/24/ | Office | Cardiology | Anisha Lopez DO | | | 2019 | Visit | | [address] | | | | | | [place] | | | | | | [address] | | | | | | | [...]
--- OUTSIDE RECORDS SUMMARY | ~2019-05-05 | XMS | Encounter Summary ---
Demographics + + + | Address | [address] | | | [place] [address] | + + + | Home Phone | | + + + | Preferred Language | Unknown | + + + | Marital Status | | + + + | Quaker Affiliation | Unknown | + + + [...] [place] | | | | | [address] | | + + + + + Care Team Providers + +------+ + | Care Software Engineer Intern Name | Role | Phone | [...] | | | hand, | | [place] [address] | | | | | unspecified | | Phone: | | | | | osteoarthrit | | [phone] | | | | | is type | | Fax: | | | | | Osteoarthrit | | [phone] | | | | | is of [...] + + | 03/20/ | Hospital | [facility] | Giuliano Padilla, | | | 2014 | Encounter | MED CTR XRAY [address] | [address] [facility] | | | | | [place] | [place] | | | | | [place] [address] | [id number] | | | | | [phone] | | | +--------+ + + + [...] | 2018 | Visit | | [address] | | | | | | [address] | | | | | | [place] [address] | | | | | | [phone] | | | | | | | | +--------+ + + + + | 06/08/ | Office | Physical Medicine | Rocky Santos, | | | 2019 | Visit | and Rehabilitation | MD [address] | | | | | | [place] | | | | | | [address] | | | | | | | | +--------+ + + + + | 06/16/ | Appointment | Pulmonology | Eveline Jaffe | | | 2019 | | | MD [address] | | | | | | [address] | | | | | | [place] [address] | | | | | | [phone] | | | | | | | | +--------+ + + + + | 06/16/ | Office | Pulmonology | Eveline Jaffe | | | 2019 | Visit | | Sherrin, MD [address] | | | | | | [place] [place] | | | | | | [place] [address] | | | | | | [phone] | | | | | | | | +--------+ + + + + | 08/24/ | Office | Cardiology | Anisha Lopez DO | | | 2019 | Visit | | [address] | | | | | | [place] | | | | | | [address] | | | | | | | [...]
--- OUTSIDE RECORDS SUMMARY | ~2019-05-05 | XMS | Encounter Summary ---
Demographics + + + | Address | [address] | | | [place] [address] | + + + | Home Phone [...] [place] | | | | | [address] | | + + + + + Care Team Providers + +------+ + | Care Alumni Coordinator Name | Role | Phone | [...] + + | 08/07/ | Hospital | [facility] | Adelita Lu MD | 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 | | | | INFUSION [address] | [place], [place] | lung, unspecified | | | | [place], | [address] | laterality (HCC); | | | | [place] [address] | [phone] | Pulmonary nodules | | | | [phone] | | | +--------+ + + + [...] W | | | | | | [facility] | | | | | | [place] [address] | | | | | | [phone] | | | | | | | | +--------+ + + + + | 06/08/ | Office | Physical Medicine | Rocky Santos, | | | 2019 | Visit | and Rehabilitation | [address] | | | | | | [place] | | | | | | [address] | | | | | | | | +--------+ + + + + | 06/16/ | Appointment | Pulmonology | Eveline Jaffe | | | 2019 | | | MD [address] | | | | | | [address] [place] | | | | | | [place] [address] | | | | | | [phone] | | | | | | | | +--------+ + + + + | 06/16/ | Office | Pulmonology | Eveline Jaffe | | | 2019 | Visit | | MD Nichole [address] | | | | | | [address] [place] | | | | | | [place] [address] | | | | | | [phone] | | | | | | | | +--------+ + + + + | 08/24/ | Office | Cardiology | Anisha Lopez DO | | | 2019 | Visit | | [address] | | | | | | [place] | | | | | | [address] | | | | | | | [...] | Basophils | | K/uL | [facility] | | | | | [...] [address] | [place] | [phone] | | [facility] | | [address] | | | - LABORATORY | | | | + + + + + | [facility] | [address] | [place] | | | [facility] | | [address] | | | - LABORATORY | | [...] mL/min/1.73m2 | [facility] | | | [facility] | RATE,ESTIMATED | | MEDICAL | | | | mL/min/1.44x2Jkpo than | | CENTER - | | [...] [address] | [place] | [phone] | | [facility] | | [address] | | | - LABORATORY | | | | + + + + + | [facility] | [address] | [place], [place] | | | [facility] | | [address] | | | - LABORATORY | | [...]
--- OUTSIDE RECORDS SUMMARY | ~2019-05-05 | XMS | Encounter Summary ---
Demographics + + + | Address | [address] | | | [place] [address] | + + + | Home Phone [...] [place] | | | | | [address] | | + + + + + Care Team Providers + +------+ + | Care Supervisor Boat Outfitting Name | Role | Phone | + +------+ + | Davis Ivan MD | PCP | | + +------+ + Reason for Visit +---------+ + | Reason | Comments | +---------+ + | Post Op | left 1st cmc arthroplasty dos 03/20/15 | +---------+ + Encounter Details +--------+---------+ + + + | Date | Type | Department | Care Team | Description | +--------+---------+ + + + | 05/02/ | Office | [facility] | Giuliano Padilla, | Postop check | | 2014 | Visit | ORTHOPEDIC SURGERY | MD Germania BARON | (Primary Dx) | | | | [address] [facility] | [place] | | | | | [place] | [address] | | | | | [address] | | | | | | [phone] | | | +--------+---------+ + + + [...] Temperature | 36.5 C (97.7 F) | 05/02/2015 2:04 PM | | | | | PST [...] Weight | 72.6 kg (160 lb) | 05/02/2015 2:04 PM | | | | | PST | | + + + + + | Height | 157.5 cm (5' 2") | 05/02/2015 2:04 PM | | | | | PST | | + + + + + | Body Mass Index | 29.26 | 05/02/2015 2:04 PM | | | | | PST | | + + + + + documented in this encounter Progress Notes Giuliano Padilla MD - 05/02/2015 2:19 PM PSTPatient returns today follow-up for [facility] arthro plasty She's doing much better She hasn't returned to normal use of the hand entirely but much better than before surgery already Wound is well-healed She has good mobility of the thumb I gave her reassurance as to reasonable expectations for the future And she will let us know how she's doing overtime documented in this encounter Plan of Treatment +--------+ + + + + | Date | Type | Specialty | Care Team | Description | +--------+ + + + + | 05/30/ | Office | Rheumatology | Santosh Sumner, | | | 2018 | Visit | | [address] | | | | | | [facility] | | | | | | [place] [address] | | | | | | [phone] | | | | | | | | +--------+ + + + + | 06/08/ | Office | Physical Medicine | Rocky Santos, | | | 2019 | Visit | and Rehabilitation | MD [address] | | | | | | [place] | | | | | | [address] | | | | | | | | +--------+ + + + + | 06/16/ | Appointment | Pulmonology | Eveline Jaffe | | | 2019 | | | MD [address]ole [address] | | | | | | [address] | | | | | | [place] [address] | | | | | | [phone] | | | | | | | | +--------+ + + + + | 06/16/ | Office | Pulmonology | Eveline Jaffe | | 2019 | Visit | | Sherrin, MD [address] | | | | | | [address] | | | | | | [place] [address] | | | | | | [phone] | | | | | | | | +--------+ + + + + | 08/24/ | Office | Cardiology | Anisha Lopez DO | | | 2019 | Visit | | [address] | | | | | | [place] | | | | | | [address] | | | | | | | | +--------+ + + + + documented as of this encounter Visit Diagnoses + + | Diagnosis | + + | Postop check - Primary Follow-up examination, following unspecified surgery | + + documented in this encounter
--- OUTSIDE RECORDS SUMMARY | ~2019-05-05 | XMS | Encounter Summary ---
Demographics + + + | Address | [address] | | | [place] [address] | + + + | Home Phone [...] [place] | | | | | [address] | | + + + + + Care Team Providers + +------+ + | Care Cable Repairer Name | Role | Phone | [...] | | | hand, | | [place] [address] | | | | | unspecified | | Phone: | | | | | osteoarthrit | | [phone] | | | | | is type | | Fax: | | | | | Osteoarthrit | | [phone] | | | | | is of [...] | | | | | | | [place] REPAIR | | | | | | [...] | | | | | [address] | [place] | | | | | [place] | [address] | | | | | [address] | | | | | | [phone] | | | +--------+ + + + [...] +----+---+ + + | | 1 | Blanca | | | | 2 | 43-degrees | | | | 4 | | | | | 3 | | | +----+---+ + + | | 1 | | | | | 3 | | | | | 0 | | | | | 4 | | | +----+---+ + + | | 1 | Blanca off | | | | 3 | [...] | 2018 | Visit | | [address] | | | | | | [facility] | | | | | | [place] [address] | | | | | | [phone] | | | | | | | | +--------+ + + + + | 06/08/ | Office | Physical Medicine | Rocky Santos, | | | 2019 | Visit | and Rehabilitation | MD Nih[address]ole [address] | | | | | | [place] | | | | | | [address] | | | | | | | | +--------+ + + + + | 06/16/ | Appointment | Pulmonology | Eveline Jaffe | | 2019 | | | MD Nichole Carter | | | | | | [address] | | | | | | [place] [address] | | | | | | [phone] | | | | | | | | +--------+ + + + + | 06/16/ | Office | Pulmonology | Eveline Jaffe | | | 2019 | Visit | | MD Nichole Carter | | | | | | [address] | | | | | | [place] [address] | | | | | | [phone] | | | | | | | | +--------+ + + + + | 08/24/ | Office | Cardiology | Anisha Lopez DO | | | 2020 | Visit | | [address] | | | | | | [place] | | | | | | [address] | | | | | | | [...] Performing Provider: | | | DIANNA RANKIN Forensic Toxicologist: Gurmeet Sequeira MD, José Miguel Draper RN [...]
--- OUTSIDE RECORDS SUMMARY | ~2019-05-05 | XMS | Encounter Summary ---
Demographics + + + | Address | [address] | | | [place] [address] | + + + | Home Phone [...] [place] | | | | | [address] | | + + + + + Care Team Providers + +------+ + | Care Magician/Illusionist Name | Role | Phone | + [...] [address] | | | | | IMAGING | [address] | | | | | [phone] | [place] [address] | | +--------+ + + + + [...] | | | | | [place] [address] | | | | | | [phone] | | | | | | | | +--------+ + + + + | 06/08/ | Office | Physical Medicine | Rocky Santos, | | | 2019 | Visit | and Rehabilitation | MD Nichole Landis | | | | | | [place] | | | | | | [address] | | | | | | | | +--------+ + + + + | 06/16/ | Appointment | Pulmonology | Eveline Jaffe | | 2019 | | | MD [address]ole [address] | | | | | | [address] | | | | | | [place] [address] | | | | | | [phone] | | | | | | | | +--------+ + + + + | 06/16/ | Office | Pulmonology | Eveline Jaffe | | | 2019 | Visit | | MD Raul [address] | | | | | | [address] | | | | | | [place] [address] | | | | | | [phone] | | | | | | | | +--------+ + + + + | 08/24/ | Office | Cardiology | Anisha Lopez DO | | | 2019 | Visit | | [address] | | | | | | [place] | | | | | | [address] | | | | | | | | +--------+ + + + + documented as of this encounter Procedures + +--------+ + + + | Procedure Name | Priori | Date/Time | Associated Diagnosis | Comments | | | ty | | | | + +--------+ + + + | XR CHEST 1 VIEW | Routin | 10/02/2015 | | Results for this | | | e | 10:30 PM | | procedure are in the | | | | PDT | | results section. | + +--------+ + + + documented in this encounter Results XR Chest 1 Vw (10/02/2015 10:30 PM PDT) + + | Specimen | [...]
--- OUTSIDE RECORDS SUMMARY | ~2019-05-05 | XMS | Encounter Summary ---
Demographics + + + | Address | [address] | | | [place] [address] | + + + | Home Phone [...] [place] | | | | | [address] | | + + + + + Care Team Providers + +------+ + | Care R D Intern Name | Role | Phone | [...] | | | | pulmonary | [address] [facility] [address] | [address] | | | | | disease, | [address] | [place] | | | | | unspecified | [place], | [place] | | | | | ([facility]) | [place] | [address] Phone: | | | | | Procedures | [address] | [phone] | | | | | FU | Phone: | Fax: | | | | | | [phone] | [phone] | | | | | | Fax: | | | | | | | [phone] | | +--------+--------+ + + + + Encounter Details +--------+---------+ + + + | Date | Type | Department | Care Team | Description | +--------+---------+ + + + | 11/19/ | Office | [facility] | Gurmeet Vargas | Chronic obstructive | | 2018 | Visit | PULMONARY [address] | MD [address] | bronchitis (HCC) | | | | [place], | [place] | (Primary Dx); | | | | [place] [address] | [place] [address] | History of lung | | | | [phone] | [phone] | cancer; Chronic | | | | [...] stayed in the hospital 11 days at [facility] in [place] in June 2017, she says. After dave [...] She tells me she sees him at [facility], so it is not in our medical [...] | 2018 | Visit | | [address] | | | | | | [facility] | | | | | | [place] [address] | | | | | | [phone] | | | | | | | | +--------+ + + + + | 06/08/ | Office | Physical Medicine | Rocky Santos, | | | 2019 | Visit | and Rehabilitation | MD Nichole [address] | | | | | | [place] | | | | | | [address] | | | | | | | | +--------+ + + + + | 06/16/ | Appointment | Pulmonology | Eveline Jaffe | | 2019 | | | MD [address]ole [address] | | | | | | [address] | | | | | | [place] [address] | | | | | | [phone] | | | | | | | | +--------+ + + + + | 06/16/ | Office | Pulmonology | Eveline Jaffe | | 2019 | Visit | | MD Nichole Carter [address] | | | | | | [address] | | | | | | [place] [address] | | | | | | [phone] | | | | | | | | +--------+ + + + + | 08/24/ | Office | Cardiology | Anisha Lopez DO | | | 2019 | Visit | | [address] | | | | | | [place] | | | | | | [address] | | | | | | | [...]
--- OUTSIDE RECORDS SUMMARY | ~2019-05-05 | XMS | Encounter Summary ---
Demographics + + + | Address | [address] | | | [place] [address] | + + + | Home Phone [...] [place] | | | | | [address] | | + + + + + Care Team Providers + +------+ + | Care Pivot End Polisher Name | Role | Phone | + +------+ + | Davis Ivan MD | PCP | | + +------+ + Reason for Visit +--------+ + | Reason | Comments | +--------+ + | COPD | | +--------+ + Encounter Details +--------+---------+ + + + | Date | Type | Department | Care Team | Description | +--------+---------+ + + + | 01/20/ | Office | [facility] | Alfredenstein, | COPD (chronic | | 2013 | Visit | PULMONARY [address] | Ayana Looney MD | obstructive | | | | [place], | | pulmonary disease) | | | | [place] [address] | | (Primary Dx); MARCE | | | | [phone] | | (obstructive sleep | | | [...] + + + | Blood Pressure | 110/58 | 01/20/2014 2:35 PM | | | | | PDT | | + + + + + | Pulse | 63 | 01/20/2014 2:35 PM | | | | | PDT | | + + + + + | Temperature | - | - | | + + + + + | Respiratory Rate | - | - | | + + + + + | Oxygen Saturation | 96% | 01/20/2014 2:35 PM | | | | | PDT | | + + + + + | Inhaled Oxygen | - | - | | | Concentration | | | | + + + + + | Weight | 65 kg (143 lb 3.2 | 01/20/2014 2:35 PM | | | | oz) | PDT | | + + + + + | Height | 154.9 cm (5' 1") | 01/20/2014 2:35 PM | | | | | PDT | | + + + + + | Body Mass Index | 27.06 | 01/20/2014 2:35 PM | | | | | PDT | | + + + + + documented in this encounter Patient Instructions Patient Instructions Ayana Taylor MD - 01/20/2014 3:16 PM PDTWe will schedule re peat breathing tests here before your back surgery. Send us a download from the new CPAP in about 2 weeks. Try wearing it when you are awake and relaxed for 30 minutes to an hour daily, to see if th is helps prevent ripping it off at night. documented in this encounter Progress Notes Ayana Taylor MD - 01/20/2014 2:53 PM PDTFormatting of this note might be differe nt from the original. Pulmonary Follow Up HPI Thea Carmona is a 68 y.o. female patient of Davis Ivan here today for follow up of COPD and MARCE. At their last visit, we had her resume her Symbicort twice daily.She notes that overall she is doing pretty well. She did get a new CPAP machine a couple of weeks ago, and she notes t hat the new machine makes her wake up clawing at her face in the middle of the night. The ol d machine was not working for her, and would turn off in the middle of the night. She did n ot wake up doing this last night, and she wore it until the 4th time she woke up, for more t fonseca 4 hours. She is currently on a regimen of Symbicort 2 puffs inhaled twice daily. She does feel like this medication regimen is working for them. She is using her nebulizer, albuterol, 1 virginia es a day. She returns today for routine follow up. Currently she is able to walk 1 block at her own pace on level ground. She is limited predo minately by back pain. She is not exercising regularly. They are looking in to physical chemistry teacher apy, such as water therapy. She does cough quite a bit. They note that the spot in her right lung has enlarged, based o n imaging Dr. Mace did. Past Medical History Past Medical History Diagnosis Date COPD (chronic obstructive pulmonary disease) (HCC) on albuterol Spondylolisthesis of cervical region Spinal stenosis has tried cortisone injections Osteoporosis Depression Pneumonia 2009 hospitalized 5 days Rheumatoid arthritis(714.0) ([facility]) on prednisone and methotrexate, Dr. 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 Respiratory Therapy Supplies [employer] Respironics autotitrating CPAP at 5-9 cm H2O for life time. Mask, headgear, chin strap, hoses, humidifier chamber and filters. Dx: 327.23 1 each 0 Respiratory Therapy Supplies [employer] ResMed S9 auto CPAP 5-9 cm H2O. [...] Constitutional: Denies fever, chills, and sweats. She had been losing weight, and is now r egaining weight. She has no appetite and has to force herself to eat. Eyes: Denies vision change and eye irritation. ENT: Denies earache, decreased hearing, nosebleeds, sore throat, and hoarseness. Resp: See HPI. CV: Denies chest pain, palpitations, syncope, and peripheral edema. GI: Denies heartburn, nausea, vomiting, and abdominal pain. : Denies difficulty emptying bladder. Objective BP 110/58 | Pulse 63 | Ht 1.549 m (5' 1") | Wt 64.955 kg (143 lb 3.2 oz) | BMI 27.07 kg/m2 | SpO2 96% RA General Appearance: Alert, cooperative, no distress, appears stated age Head: Normocephalic, without obvious abnormality, atraumatic Eyes: PERRL, conjunctiva clear, no scleral icterus, EOM's intact Ears: Normal TM's, external auditory canals, nomral acuity Nose: Nares normal, septum midline, mucosa edematous with white mucous drainage Mouth: No oral lesions or exudate Neck: Supple, symmetrical, no adenopathy Lungs: No accessory muscle use, breath sounds are diminished bilaterally with prolongatio n of the expiratory phase, no wheezes, crackles or rhonchi Chest Wall: No deformity Heart: Regular rate and rhythm, no murmur, rub or gallop Abdomen: Soft, non-tender, non-distended Extremities: No cyanosis, or clubbing, trace bilateral lower extremity edema Pulses: Radial pulses 2+ and symmetric Skin: Warm and dry Lymph nodes: Cervical and supraclavicular nodes normal Data: Results for orders placed during the hospital encounter of 01/09/14 CBC WITH DIFFERENTIAL Component Value Range WBC [...] GLOBULIN 3.3 Albumin/Globulin ratio 0.9 BUN/CREA 11.5 Immunization History Administered Date(s) Administered INFLUENZA, PRESERVATIVE FREE IM 03/22/2013 Pneumococcal (Adult) 03/01/2011 Assessment 1. COPD (chronic obstructive pulmonary disease) - Doing well having resumed the Symbicort. We will continue this. 2. MARCE (obstructive sleep apnea) - Continues to struggle, though hard to get an exact reaso n why, as I do not know what transpired with the prior machine, and have no download from it or the current machine to make an assessment. I asked her to get a me a download off the ne w machine in about 2 weeks. Plan 1.Continue on Symbicort twice daily. 2.She will get me a download off her new CPAP in 2 weeks so we can make an assessment of ho w it is working. 3.Recheck PFTs prior to her next surgery as she has had a lobectomy. 4. I asked her to wear her CPAP for 30-60 minutes while awake daily to help adjust to using it. She was advised to call if new pulmonary symptoms were to develop. Return to clinic in 3 months, or sooner with concerns. CC: Davis Ivan Portions of this report were transcribed using voice recognition software. Every effort wa s made to ensure accuracy; however, inadvertent computerized firestopper installer errors may be pre sent. Electronically signed by: Aayna Taylor MD 01/20/2014 14:53 documented in t his encounter Plan of [...] | | | | | [place] [address] | | | | | | [phone] | | | | | | | | +--------+ + + + + | 06/08/ | Office | Physical Medicine | Rocky Santos, | | | 2019 | Visit | and Rehabilitation | [address] | | | | | | [place] | | | | | | [address] | | | | | | | | +--------+ + + + + | 06/16/ | Appointment | Pulmonology | Eveline Jaffe | | | 2019 | | | MD Nichole Carter [address] | | | | | | [address] | | | | | | [place] [address] | | | | | | [phone] | | | | | | | | +--------+ + + + + | 06/16/ | Office | Pulmonology | Eveline Jaffe | | | 2019 | Visit | | MD Nichole Carter [address] | | | | | | [address] | | | | | | [place] [address] | | | | | | [phone] | | | | | | | | +--------+ + + + + | 08/24/ | Office | Cardiology | Anisha Lopez DO | | | 2019 | Visit | | [address] | | | | | | [place] | | | | | | [address] | | | | | | | | +--------+ + + + + documented as of this encounter Results PFT PULMONARY FUNCTION TESTING ORDERS Full PFT (Mp w/BD, lung volumes, diffusion)?: Yes (02/09/2014 9:04 [...] | | Ayana Taylor MD 02/09/2014 9:00 [facility] CC: Davis Ivan | | + + + + [...] Ayana Taylor MD 02/09[facility]2014 | [facility] | |[facility] | | | |CC: Davis Ivan [...]
--- OUTSIDE RECORDS SUMMARY | ~2019-05-05 | XMS | Encounter Summary ---
Demographics + + + | Address | [address] | | | [place] [address] | + + + | Home Phone [...] [place] | | | | | [address] | | + + + + + Care Team Providers + +------+ + | Care Hub Borer Name | Role | Phone | + +------+ + | Davis Ivan MD | PCP | | + +------+ + Encounter Details +--------+ + + + + | Date | Type | Department | Care Team | Description | +--------+ + + + + | 08/30/ | Hospital | [facility] IP | Conversion | Pain | | 2014 | Encounter | CONVERSION DEP [address] | Transaction, | | | | | [address] | Provider Unknown | | | | | [place] | [phone] | | | | | [address] | | | | | | [phone] | | | +--------+ + + + [...] | | | | | [place] [address] | | | | | | [phone] | | | | | | | | +--------+ + + + + | 06/08/ | Office | Physical Medicine | Rocky Santos, | | | 2019 | Visit | and Rehabilitation | MD [address] | | | | | | [place] | | | | | | [address] | | | | | | | | +--------+ + + + + | 06/16/ | Appointment | Pulmonology | Eveline Jaffe | | 2019 | | | MD [address]ole [address] | | | | | | [address] | | | | | | [place] [address] | | | | | | [phone] | | | | | | | | +--------+ + + + + | 06/16/ | Office | Pulmonology | Eveline Jaffe | | | 2019 | Visit | | MD Raul [address] | | | | | | [address] [address] | | | | | | [place] [address] | | | | | | [phone] | | | | | | | | +--------+ + + + + | 08/24/ | Office | Cardiology | Anisha Lopez DO | | | 2019 | Visit | | [address] | | | | | | [place] | | | | | | [address] | | | | | | | [...]
--- OUTSIDE RECORDS SUMMARY | ~2019-05-05 | XMS | Encounter Summary ---
Demographics + + + | Address | [address] | | | [place] [address] | + + + | Home Phone [...] [place] | | | | | [address] | | + + + + + Care Team Providers + +------+ + | Care Entry Level Assistant Manager Name | Role | Phone | [...] | | | hand, | | [place] [address] | | | | | unspecified | | Phone: | | | | | osteoarthrit | | [phone] | | | | | is type | | Fax: | | | | | Osteoarthrit | | [phone] | | | | | is of [...] | | | | | | | [place] REPAIR | | | | | | | INTERCARP/CA | | | | | | | RP-METACARP | | | | | | | JT | | | +--------+--------+ + + + + Encounter Details +--------+ + + + + | Date | Type | Department | Care Team | Description | +--------+ + + + + | 03/20/ | Hospital | [facility] | Giuliano Padilla, | | | 2014 | Encounter | MED CTR XRAY [address] | [address] [facility] | | | | | [place] | [place] | | | | | [place] [address] | [address] | | | | | [phone] | | | +--------+ + + + [...] DANIELLE | | | | | | [place] [address] | | | | | | [phone] | | | | | | | | +--------+ + + + + | 06/08/ | Office | Physical Medicine | Rocky Santos, | | | 2019 | Visit | and Rehabilitation | MD [address] | | | | | | [place] | | | | | | [address] | | | | | | | | +--------+ + + + + | 06/16/ | Appointment | Pulmonology | Eveline Jaffe | | | 2019 | | | MD Nichole Carter | | | | | | [address] | | | | | | [place] [address] | | | | | | [phone] | | | | | | | | +--------+ + + + + | 06/16/ | Office | Pulmonology | Eveline Jaffe | | | 2019 | Visit | | Sherrin, MD [address] | | | | | | [address] [address] [place] | | | | | | [place] [address] | | | | | | [phone] | | | | | | | | +--------+ + + + + | 08/24/ | Office | Cardiology | Anisha Lopez DO | | | 2019 | Visit | | [address] | | | | | | [place] | | | | | | [address] | | | | | | | [...]
--- OUTSIDE RECORDS SUMMARY | ~2019-05-05 | XMS | Encounter Summary ---
Demographics + + + | Address | [address] | | | [place] [address] | + + + | Home Phone [...] [place] | | | | | [address] | | + + + + + Care Team Providers + +------+ + | Care Policy Manager Name | Role | Phone | [...] + + + + | 07/02/ | Telephone | [facility] | Vivian, | Other | | 2015 | | MED CTR MEDICAL | Lokesh Gramajo MD [address] | | | | | [facility] [address] | [facility] | | | | | [address] | [place] [address] | | | | | [place] [address] | [phone] | | | | | [phone] | | | +--------+ + + + [...] | 2018 | Visit | | [address] | | | | | | [facility] | | | | | | [place] [address] | | | | | | [phone] | | | | | | | | +--------+ + + + + | 06/08/ | Office | Physical Medicine | Rocky Santos, | | | 2019 | Visit | and Rehabilitation | [address] | | | | | | [place] | | | | | | [address] | | | | | | | | +--------+ + + + + | 06/16/ | Appointment | Pulmonology | Eveline Jaffe | | | 2019 | | | MD Nichole Carter | | | | | | [address] | | | | | | [place] [address] | | | | | | [phone] | | | | | | | | +--------+ + + + + | 06/16/ | Office | Pulmonology | Eveline Jaffe | | | 2019 | Visit | | MD Nichole Carter | | | | | | [address] | | | | | | [place] [address] | | | | | | [phone] | | | | | | | | +--------+ + + + + | 08/24/ | Office | Cardiology | Anisha Lopez DO | | | 2019 | Visit | | [address] | | | | | | [place] | | | | | | [address] | | | | | | | | +--------+ + + + + documented as of this encounter Visit Diagnoses Not on filedocumented in this encounter"
--- OUTSIDE RECORDS SUMMARY | ~2019-05-05 | XMS | Encounter Summary ---
Demographics + + + | Address | [address] | | | [place] [address] | + + + | Home Phone [...] [place] | | | | | [address] | | + + + + + Care Team Providers + +------+ + | Care Program Review Director Name | Role | Phone | [...] [facility] [place] | Offenstein, | Other | | 2012 | | PULMONARY [address] | Ayana Looney MD | | | | | [place], | | | | | | [place] [address] | | | | | | [phone] | | | +--------+ + + + [...] | 2018 | Visit | | [address] | | | | | | [facility] | | | | | | [place] [address] | | | | | | [phone] | | | | | | | | +--------+ + + + + | 06/08/ | Office | Physical Medicine | Rocky Santos, | | | 2019 | Visit | and Rehabilitation | MD [address] | | | | | | [place] | | | | | | [address] | | | | | | | | +--------+ + + + + | 06/16/ | Appointment | Pulmonology | Eveline Jaffe | | | 2019 | | | MD Nichole [address] | | | | | | [address] | | | | | | [place] [address] | | | | | | [phone] | | | | | | | | +--------+ + + + + | 06/16/ | Office | Pulmonology | Eveline Jaffe | | | 2019 | Visit | | MD Nichole [address] | | | | | | [address] | | | | | | [place] [address] | | | | | | [phone] | | | | | | | | +--------+ + + + + | 08/24/ | Office | Cardiology | Anisha Lopez DO | | | 2020 | Visit | | [address] | | | | | | [place], [place] | | | | | | [address] | | | | | | | | +--------+ + + + + + +------+--------+ + + | Name | Type | Priori | Associated Diagnoses | Order Schedule | | | | ty | | | + +------+--------+ + + | Hepatic Function | Lab | Routin | Pulmonary abscess | 1 Occurrences | | Panel | | e | (HCC) | starting 04/25/2013 | | | | | | until 04/25/2014 | + +------+--------+ + + documented as of this encounter Results XR Chest PA and Lateral (05/11/2013 1:28 PM PST) + + | Specimen | + + | | + + + + + | Narrative | Performed At | + + + | [facility] Diagnostic [facility] | [place] | | Department [address] [place] [address] | [facility] | | [ rep ct [address]] [ rep ct [facility] [place] | | [facility]] Signed | - IMAGING | | | | | Patient Name: THEA CARMONA Physician: | | | OFFE.01 : 1945 Age: 67 Sex: F Unit #: [id number] | | | Exam Date: 05/11/13 Location: [facility] | | | Report #: [id number] Page: | | | %(RAD)RES..mtdd.print.filter("pg") of %(RAD) | | | RES..mtdd.print.filter("tpg") | | | | | | Accession Number: [id number] | | | CHEST X-RAY CLINICAL HISTORY: [...] Transcribed Date/Time: 05/11/2013 | | | 13:38 Driller Helper: <<Signature | | | on File>> | | | Matheus | | | MD Kang05/11/13 1420 <Electronically signed by Matheus Kapadia MD> | | | Matheus Kapadia MD 05/11/13 1328 Driller Helper: [employer] | | | [email or web address]/11/13 1338 Ayana Taylor MD | | | | | + + + + + + + + | Performing | Address | City/State/Zipcode | Phone Number | | Organization | | | | + + + + + | [facility] | [address] | [place] | [phone] | | [facility] | | [address] | | | - IMAGING | | | | + + + + + documented in this encounter Visit Diagnoses + + | Diagnosis | + + | Pulmonary abscess (HCC) - Primary Abscess of lung | + + documented in this encounter
--- OUTSIDE RECORDS SUMMARY | ~2019-05-05 | XMS | Encounter Summary ---
Demographics + + + | Address | [address] | | | [place] [address] | + + + | Home Phone [...] [place] | | | | | [address] | | + + + + + Care Team Providers + +------+ + | Care Claims Counsel Name | Role | Phone | + +------+ + | Davis Ivan MD | PCP | | + +------+ + Encounter Details +--------+ + + + + | Date | Type | Department | Care Team | Description | +--------+ + + + + | 11/06/ | Hospital | [facility] | Gurmeet Vargas | Bronchogenic cancer | | 2017 | Encounter | MED CTR XRAY [address] | MD [address] | of right lung (HCC) | | | | [place] | [address] [place] | | | | | [place] [address] | [place] [address] | | | | | [phone] | [phone] | | | | | | | [...] | | | | type ([facility]) | | | | | | + [...] | | | | | [place] [address] | | | | | | [phone] | | | | | | | | +--------+ + + + + | 06/08/ | Office | Physical Medicine | Rocky Santos, | | | 2019 | Visit | and Rehabilitation | MD [address] | | | | | | [place] | | | | | | [address] | | | | | | | | +--------+ + + + + | 06/16/ | Appointment | Pulmonology | Eveline Jaffe | | | 2019 | | | MD [address] | | | | | | [place] | | | | | | [place] [address] | | | | | | [phone] | | | | | | | | +--------+ + + + + | 06/16/ | Office | Pulmonology | Eveline Jaffe | | | 2019 | Visit | | MD Raul [address] | | | | | | [address] | | | | | | [place] [address] | | | | | | [phone] | | | | | | | | +--------+ + + + + | 08/24/ | Office | Cardiology | Anisha Lopez DO | | | 2019 | Visit | | [address] | | | | | | [place] | | | | | | [address] | | | | | | | [...] the | | | | PDT | ([facility]) | results section. | + +--------+ + [...] chest radiographs. CT chest 11/30/2015. | [facility] | | FINDINGS: Frontal and lateral views [...] [address] | [place] | [phone] | | [facility] | | [address] | | | - IMAGING | | | | + + + + + documented in this encounter Visit Diagnoses + + | Diagnosis | + + | Bronchogenic cancer of right lung (HCC) | + + documented in this encounter"
--- OUTSIDE RECORDS SUMMARY | ~2019-05-05 | XMS | Encounter Summary ---
Demographics + + + | Address | [address] | | | [place] [address] | + + + | Home Phone [...] [place] | | | | | [address] | | + + + + + Care Team Providers + +------+ + | Care Sewing Machine Mechanic Name | Role | Phone | [...] Description | +--------+--------+ + + + | 10/24/ | Refill | [facility] | Jimmy Banegas DO | Medication Refill | | 2014 | | MED CTR RADIATION | [address] | | | | | ONCOLOGY [address] | [place] | | | | | [place], | [address] | | | | | [place] [address] | | | | | | [phone] | | | +--------+--------+ + + + [...] | 2018 | Visit | | [address] | | | | | | [facility] | | | | | | [place] [address] | | | | | | [phone] | | | | | | | | +--------+ + + + + | 06/08/ | Office | Physical Medicine | Rocky Santos, | | | 2019 | Visit | and Rehabilitation | [address] | | | | | | [place] | | | | | | [address] | | | | | | | | +--------+ + + + + | 06/16/ | Appointment | Pulmonology | Eveline Jaffe | | | 2019 | | | MD [address] | | | | | | [address] [place] | | | | | | [place] [address] | | | | | | [phone] | | | | | | | | +--------+ + + + + | 06/16/ | Office | Pulmonology | Eveline Jaffe | | | 2019 | Visit | | MD Nichole [address] | | | | | | [address] [place] | | | | | | [place] [address] | | | | | | [phone] | | | | | | | | +--------+ + + + + | 08/24/ | Office | Cardiology | Anisha Lopez DO | | | 2019 | Visit | | [address] | | | | | | [place] | | | | | | [address] | | | | | | | | +--------+ + + + + documented as of this encounter Visit Diagnoses Not on filedocumented in this encounter"
--- OUTSIDE RECORDS SUMMARY | ~2019-05-05 | XMS | Encounter Summary ---
Demographics + + + | Address | [address] | | | [place] [address] | + + + | Home Phone [...] | [facility] | | | and [place] | + [...] [place] | | | | | [address] | | + + + + + Care Team Providers + +------+ + | Care Residential Caregiver Name | Role | Phone | + [...] + + | 09/24/ | Office | [facility] [place] | Giuliano Padilla, | Trigger thumb of | | 2019 | Visit | ORTHOPEDIC SURGERY | MD Germania BARON | left hand (Primary | | | | [address] | [place] | Dx); Trigger finger, | | | | [place] | [address] | left index finger; | | | | [address] | | Trigger finger, left | | | | [phone] | | middle finger | +--------+---------+ + [...] | | | | | [place] [address] | | | | | | [phone] | | | | | | | | +--------+ + + + + | 06/08/ | Office | Physical Medicine | Rocky Santos, | | | 2019 | Visit | and Rehabilitation | MD [address] | | | | | | [place] | | | | | | [address] | | | | | | | | +--------+ + + + + | 06/16/ | Appointment | Pulmonology | Eveline Jaffe | | | 2019 | | | MD [address] | | | | | | [address] [place] | | | | | | [place] [address] | | | | | | [phone] | | | | | | | | +--------+ + + + + | 06/16/ | Office | Pulmonology | Eveline Jaffe | | | 2019 | Visit | | MD Nichole Carter [address] | | | | | | [address] [place] | | | | | | [place], [place] [address] | | | | | | [phone] | | | | | | | | +--------+ + + + + | 08/24/ | Office | Cardiology | Anisha Lopez DO | | | 2019 | Visit | | [address] | | | | | | [place] | | | | | | [address] | | | | | | | [...]
--- OUTSIDE RECORDS SUMMARY | ~2019-05-05 | XMS | Encounter Summary ---
Demographics + + + | Address | [address] | | | [place] [address] | + + + | Home Phone | | + + + | Preferred Language | Unknown | + + + | Marital Status | | + + + | Latter-Day Affiliation | Unknown | + + + | Race | Unknown | + + + | Ethnic Group | Unknown | + + + Author + + + | Author | [facility] | | | and [place] | + + + | Organization | [facility] | | [...] [address] | | | | | [address] | | + + + + + Care Team Providers + +------+ + | Care City Distribution Clerk Name | Role | Phone | + +------+ + PCP | Unavailable | + +------+ + Encounter Details +--------+ + + + + | Date | Type | Department | Care Team | Description | +--------+ + + + + | 03/22/ | Abstract | [facility] [place] | Offenstein, | COPD (chronic | | 2012 | | PULMONARY [address] | Ayana Looney MD | obstructive | | | | [place], | | pulmonary disease) | | | | [place] [address] | | (HCC) (Primary Dx); | | | | [phone] | | Lung mass | +--------+ + + + + Social [...] | | | | | [place] [address] | | | | | | [phone] | | | | | | | | +--------+ + + + + | 06/08/ | Office | Physical Medicine | Rocky Santos, | | | 2019 | Visit | and Rehabilitation | MD [address] | | | | | | [place] | | | | | | [address] | | | | | | | | +--------+ + + + + | 06/16/ | Appointment | Pulmonology | Eveline Jaffe | | 2019 | | | MD Nichole Carter | | | | | | [address] | | | | | | [place] [address] | | | | | | [phone] | | | | | | | | +--------+ + + + + | 06/16/ | Office | Pulmonology | Eveline Jaffe | | | 2019 | Visit | | MD Raul [address] | | | | | | [place] | | | | | | [place] [address] | | | | | | [phone] | | | | | | | | +--------+ + + + + | 08/24/ | Office | Cardiology | Anisha Lopez DO | | | 2019 | Visit | | [address] | | | | | | [place] | | | | | | [address] | | | | | | | | +--------+ + + + + documented as of this encounter Visit Diagnoses + + | Diagnosis | + + | COPD (chronic obstructive pulmonary disease) (HCC) - Primary Chronic airway | | obstruction, not elsewhere classified | + + | Lung mass Swelling, mass, or lump in chest | + + documented in this encounter"
--- OUTSIDE RECORDS SUMMARY | ~2019-05-05 | XMS | Encounter Summary ---
Demographics + + + | Address | [address] | | | [place] [address] | + + + | Home Phone [...] [place] | | | | | [address] | | + + + + + Care Team Providers + +------+ + | Care Laser Systems Engineer Name | Role | Phone | [...] + + | 12/09/ | Office | [facility] [place] | Giuliano Padilla, | Pre-op testing | | 2019 | Visit | ORTHOPEDIC SURGERY | MD Germania BARON | (Primary Dx); | | | | [address] [facility] | [place] | Trigger finger of | | | | [place] | [address] | left thumb; Trigger | | | | [address] | | middle finger of | | | | [phone] | | left hand; Trigger | | [...] | 2018 | Visit | | [address] | | | | | | [facility] | | | | | | [place] [address] | | | | | | [phone] | | | | | | | | +--------+ + + + + | 06/08/ | Office | Physical Medicine | Rocky Santos, | | 2019 | Visit | and Rehabilitation | [address] | | | | | | [place] | | | | | | [address] | | | | | | | | +--------+ + + + + | 06/16/ | Appointment | Pulmonology | Eveline Jaffe | | | 2019 | | | MD Nichole Carter [address] | | | | | | [address] [place] | | | | | | [place] [address] | | | | | | [phone] | | | | | | | | +--------+ + + + + | 06/16/ | Office | Pulmonology | Eveline Jaffe | | | 2019 | Visit | | MD Nichole Carter | | | | | | [address] [place] | | | | | | [place] [address] | | | | | | [phone] | | | | | | | | +--------+ + + + + | 08/24/ | Office | Cardiology | Anisha Lopez DO | | | 2019 | Visit | | [address] | | | | | | [place] | | | | | | [address] | | | | | | | [...] | GLOMERULAR FILTRATION | mL/min/1.73m2 | [facility] | | | [facility] | RATE,ESTIMATED | | MEDICAL | | | | mL/min/1.25x8Omja than | | CENTER - | | [...] ST. | [address] | [place] | [phone] | | [facility] | | [address] | | | - LABORATORY | | [...]
--- OUTSIDE RECORDS SUMMARY | ~2019-05-05 | XMS | Encounter Summary ---
Demographics + + + | Address | [address] | | | [place] [address] | + + + | Home Phone [...] [place] | | | | | [address] | | + + + + + Care Team Providers + +------+ + | Care Auto Transmission Specialist Name | Role | Phone | [...] | | | | | laterality, | [address] | [place] [address] | | | | | sequela | [place], | Phone: | | | | | | [place] [address] | [phone] | | | | | | | Fax: | | | | | | | [phone] | +--------+ + + + + + [...] MD | obstructive | | | | [place], | | pulmonary disease) | | | | [place] [address] | | (Primary Dx); | | | | [phone] | | Recurrent squamous | | | [...] COPD (chronic obstructive pulmonary disease) ([facility]) on albuterol Spondylolisthesis of cervical region Spinal stenosis has tried cortisone injections Osteoporosis Depression Pneumonia 2008 hospitalized 5 days Rheumatoid arthritis(714.0) ([facility]) [facility]one 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 60 tablet 3 Respiratory Therapy Supplies [facility] PublishThis S9 auto CPAP 5-9 cm H2O. Heater [...] pending.CT scan do ne at [facility] showed area of enlargement previously [...] as surgery und er local block. * [facility] - [facility] Referral Plan 1.Continue [...] made to ensure accuracy; however, inadvertent computerized furniture sales associate errors may be pre sent. documented in t his encounter Plan of Treatment +--------+ + + + + | Date | Type | Specialty | Care Team | Description | +--------+ + + + + | 05/30/ | Office | Rheumatology | Santosh Sumner, | | | 2018 | Visit | | [address] | | | | | | [facility] | | | | | | [place] [address] | | | | | | [phone] | | | | | | | | +--------+ + + + + | 06/08/ | Office | Physical Medicine | Rocky Santos, | | | 2019 | Visit | and Rehabilitation | MD Nichole Hind[address] | | | | | | [place] | | | | | | [address] | | | | | | | | +--------+ + + + + | 06/16/ | Appointment | Pulmonology | Eveline Jaffe | | | 2019 | | | MD Nichole [address] | | | | | | [address] [place] | | | | | | [place] [address] | | | | | | [phone] | | | | | | | | +--------+ + + + + | 06/16/ | Office | Pulmonology | Eveline Jaffe | | | 2019 | Visit | | MD Nichole Carter [address] | | | | | | [address] [place] | | | | | | [place] [address] | | | | | | [phone] | | | | | | | | +--------+ + + + + | 08/24/ | Office | Cardiology | Anisha Lopez DO | | | 2019 | Visit | | [address] | | | | | | [place] | | | | | | [address] | | | | | | | [...]
--- OUTSIDE RECORDS SUMMARY | ~2019-05-05 | XMS | Encounter Summary ---
Demographics + + + | Address | [address] | | | [place] [address] | + + + | Home Phone | | + + + | Preferred Language | Unknown | + + + | Marital Status | Single | + + + | Cheondoism Affiliation | Unknown | + + + | Race | White | + + + | Ethnic Group | Not or | + + + Author + + + | Author | [facility] | + + + | Organization | [facility] | + + + | Address | Unknown | + + + | Phone | Unavailable | + + + Support + + +---------+ + | Name | Relationship | Address | Phone | + + +---------+ + | Mirza Bee | ECON | Unknown | | + + +---------+ + Care Team Providers + +------+ + | Care Medical Superintendent Name | Role | Phone | + +------+ + | Ayana Taylor MD | PCP | Unavailable | + +------+ + Encounter Details +--------+ + + + + | Date | Type | Department | Care Team | Description | +--------+ + + + + | 07/20/ | Document-Sc | UNKNOWN DEPARTMENT | Unknown . | | | 2013 | anned | [address] | | | | | | [address] | | | | | | [place] | | | | | | [address] | | | +--------+ + + + [...] this encounter Plan of Treatment Not on filedocumented as of this encounter Procedures + +--------+ + + + | Procedure Name | Priori | Date/Time | Associated Diagnosis | Comments | | | ty | | | | + +--------+ + + + | RADIOLOGY | | 06/09/2013 | | Results for this | | | | 12:00 AM | | procedure are in the | | | | PST | | results section. | + +--------+ + + + documented in this encounter Results RADIOLOGY (06/09/2013 12:00 AM PST) + + + | Narrative | Performed At | + + + | | | | | | + + + + + | Procedure Note | + + | Urbano Naylor - 07/25/2013 3:00 PM PST | + + documented in this encounter Visit Diagnoses Not on filedocumented in this encounter"
--- OUTSIDE RECORDS SUMMARY | ~2019-05-05 | XMS | Encounter Summary ---
Demographics + + + | Address | [address] | | | [place] [address] | + + + | Home Phone [...] [place] | | | | | [address] | | + + + + + Care Team Providers + +------+ + | Care Regulatory Scientist Name | Role | Phone | + +------+ + | Davis Ivan MD | PCP | | + +------+ + Encounter Details +--------+ + + + + | Date | Type | Department | Care Team | Description | +--------+ + + + + | 08/02/ | Hospital | [facility] | [place], | | | 2013 | Encounter | MED CTR EMERGENCY | Lokesh Horvath MD [address] | | | | | [address] | [address] [facility] | | | | | [place], [place] | [place] [address] | | | | | [address] | [phone] | | | | | [phone] | | | +--------+ + + + [...] | 2018 | Visit | | [address] | | | | | | [facility] | | | | | | [place] [address] | | | | | | [phone] | | | | | | | | +--------+ + + + + | 06/08/ | Office | Physical Medicine | Rocky Santos, | | | 2019 | Visit | and Rehabilitation | MD Nichole [address] | | | | | | [place] | | | | | | [address] | | | | | | | | +--------+ + + + + | 06/16/ | Appointment | Pulmonology | Eveline Jaffe | | | 2019 | | | MD [address]ole [address] | | | | | | [address] [place] | | | | | | [place] [address] | | | | | | [phone] | | | | | | | | +--------+ + + + + | 06/16/ | Office | Pulmonology | Eveline Jaffe | | | 2019 | Visit | | MD Nichole Carter [address] | | | | | | [address] [place] | | | | | | [place] [address] | | | | | | [phone] | | | | | | | | +--------+ + + + + | 08/24/ | Office | Cardiology | Anisha Lopez DO | | | 2019 | Visit | | [address] | | | | | | [place] | | | | | | [address] | | | | | | | | +--------+ + + + + documented as of this encounter Visit Diagnoses Not on filedocumented in this encounter"
--- OUTSIDE RECORDS SUMMARY | ~2019-05-05 | XMS | Encounter Summary ---
Demographics + + + | Address | [address] | | | [place] [address] | + + + | Home Phone [...] + + + + + | Jewel Azveedo | ECON | [address] | | | | | [place] | | | | | [address] | | + + + + + Care Team Providers + +------+ + | Care Radio Talk Show Host Name | Role | Phone | + [...] | (Primary Dx) | | | | [place], | [address] | | | | | [place] [address] | | | | | | [phone] | | | +--------+ + + + [...] | | | | | [place] [address] | | | | | | [phone] | | | | | | | | +--------+ + + + + | 06/08/ | Office | Physical Medicine | Rocky Santos | | | 2019 | Visit | and Rehabilitation | [address] | | | | | | [place] | | | | | | [address] | | | | | | | | +--------+ + + + + | 06/16/ | Appointment | Pulmonology | Eveline Jaffe | | | 2019 | | | MD Nichole [address] | | | | | | [address] [place] | | | | | | [place] [address] | | | | | | [phone] | | | | | | | | +--------+ + + + + | 06/16/ | Office | Pulmonology | Eveline Jaffe | | 2019 | Visit | | MD Nichole [address] | | | | | | [address] [place] | | | | | | [place] [address] | | | | | | [phone] | | | | | | | | +--------+ + + + + | 08/24/ | Office | Cardiology | Anisha Lopez DO | | 2019 | Visit | | [address] | | | | | | [place] | | | | | | [address] | | | | | | | | +--------+ + + + + documented as of this encounter Visit Diagnoses + + | Diagnosis | + + | Cough due to bronchospasm - Primary Acute bronchospasm | + + documented in this encounter"
--- OUTSIDE RECORDS SUMMARY | ~2019-05-05 | XMS | Encounter Summary ---
Demographics + + + | Address | [address] | | | [place] [address] | + + + | Home Phone [...] [place] | | | | | [address] | | + + + + + Care Team Providers + +------+ + | Care Senior Asset Manager Name | Role | Phone | [...] | | | | | [address] | [address] [facility] | | | | | [place], [place] | [place] [address] | | | | | [address] | [phone] | | | | | [phone] | | | +--------+---------+ + + + [...] the port is placed in the arm 6529-0352 [employer]. [address] [place] [address], [place] [address]. All righ ts reserved. This information is [...] may interact with prescription medicines or other uyjv-mzo-vlfwuvq (OTC) drugs. The FDA recommends reading OTC medication labels careful ly to clearly understand the list of active ingredients, directions, and any precautions to help avoid taking too muchacetaminophen. If you have questions, ask your pharmacist or a [facility] care provider. Managing Nausea Some people have [...] or skin changes (rash, itching, or hives). 6310-5988 [employer]. [address] [place] [address], [place] [address]. All righ ts reserved. This information is [...] | | | | | [place] [address] | | | | | | [phone] | | | | | | | | +--------+ + + + + | 06/08/ | Office | Physical Medicine | Rocky Santos, | | | 2019 | Visit | and Rehabilitation | [address] | | | | | | [place] | | | | | | [address] | | | | | | | | +--------+ + + + + | 06/16/ | Appointment | Pulmonology | Eveline Jaffe | | | 2019 | | | MD Nichole [address] | | | | | | [address] [place] | | | | | | [place] [address] | | | | | | [phone] | | | | | | | | +--------+ + + + + | 06/16/ | Office | Pulmonology | Eveline Jaffe | | | 2019 | Visit | | MD Nichole [address] | | | | | | [address] [place] | | | | | | [place] [address] | | | | | | [phone] | | | | | | | | +--------+ + + + + | 08/24/ | Office | Cardiology | Anisha Lopez DO | | | 2019 | Visit | | [address] | | | | | | [place] | | | | | | [address] | | | | | | | [...]
--- OUTSIDE RECORDS SUMMARY | ~2019-05-05 | XMS | Encounter Summary ---
Demographics + + + | Address | [address] | | | [place] [address] | + + + | Home Phone [...] [place] | | | | | [address] | | + + + + + Care Team Providers + +------+ + | Care Crew Leader/Control Room Operator Name | Role | Phone | [...] RN | obstructive | | | | [place], | | pulmonary disease) | | | | [place] [address] | | | | | | [phone] | | | +--------+ + + + [...] | | | | | [place] [address] | | | | | | [phone] | | | | | | | | +--------+ + + + + | 06/08/ | Office | Physical Medicine | Rocky Santos, | | | 2019 | Visit | and Rehabilitation | MD [address] | | | | | | [place] | | | | | | [address] | | | | | | | | +--------+ + + + + | 06/16/ | Appointment | Pulmonology | Eveline Jaffe | | 2019 | | | MD [address]ole [address] | | | | | | [address] | | | | | | [place] [address] | | | | | | [phone] | | | | | | | | +--------+ + + + + | 06/16/ | Office | Pulmonology | Eveline Jaffe | | | 2019 | Visit | | MD Raul [address] | | | | | | [address] | | | | | | [place] [address] | | | | | | [phone] | | | | | | | | +--------+ + + + + | 08/24/ | Office | Cardiology | Anisha Lopez DO | | | 2019 | Visit | | [address] | | | | | | [place] | | | | | | [id number] | | | | | | | | +--------+ + + + + documented as of this encounter Visit Diagnoses + + | Diagnosis | + + | COPD (chronic obstructive pulmonary disease) Chronic airway obstruction, not | | elsewhere classified | + + documented in this encounter"
--- OUTSIDE RECORDS SUMMARY | ~2019-05-05 | XMS | Encounter Summary ---
Demographics + + + | Address | [address] | | | [place] [address] | + + + | Home Phone [...] [place] | | | | | [address] | | + + + + + Care Team Providers + +------+ + | Care Computed Tomography Technician Name | Role | Phone | [...] | | | | | | [place] [address] | | | | | | [phone] | | | +--------+ + + + [...] | | | | | [place] [address] | | | | | | [phone] | | | | | | | | +--------+ + + + + | 06/08/ | Office | Physical Medicine | Rocky Santos, | | | 2019 | Visit | and Rehabilitation | MD [address] | | | | | | [place] | | | | | | [address] | | | | | | | | +--------+ + + + + | 06/16/ | Appointment | Pulmonology | Eveline Jaffe | | 2019 | | | MD [address] | | | | | | [address] | | | | | | [place] [address] | | | | | | [phone] | | | | | | | | +--------+ + + + + | 06/16/ | Office | Pulmonology | Eveline Jaffe | | | 2019 | Visit | | MD Raul [address] | | | | | | [address] [address] | | | | | | [place] [address] | | | | | | [phone] | | | | | | | | +--------+ + + + + | 08/24/ | Office | Cardiology | Anisha Lopez DO | | | 2019 | Visit | | [address] | | | | | | [place] | | | | | | [address] | | | | | | | | +--------+ + + + + documented as of this encounter Visit Diagnoses Not on filedocumented in this encounter"
--- OUTSIDE RECORDS SUMMARY | ~2019-05-05 | XMS | Encounter Summary ---
Demographics + + + | Address | [address] | | | [place] [address] | + + + | Home Phone [...] [place] | | | | | [address] | | + + + + + Care Team Providers + +------+ + | Care Director Merit System Name | Role | Phone | + +------+ + | Caitlin Chino MD | PCP | | + +------+ + Encounter Details +--------+ + + + + | Date | Type | Department | Care Team | Description | +--------+ + + + + | 04/22/ | Hospital | [facility] | Rocky Santos, | Cervicalgia; History | | 2019 | Encounter | MED CTR XRAY [address] | MD [address] | of fusion of | | | | [place] | [place], [place] | cervical spine | | | | [place] [address] | [address] | | | | | [phone] | | | +--------+ + + + [...] | | | | | type ([facility]) | | | | | | + + + +---------+ + + | budesonide | Take 2 mLs by | 180 | 3 | 10/16/20 | | | (PULMICORT) 0.5 mg/2 | [...] tablets by | 32 | 0 | 04/12/20 | | | mg tablet | mouth every week | tablet | | 19 | | + + [...] | | | | | type ([facility]) | | | | | | [...] | | | | | [place] [address] | | | | | | [phone] | | | | | | | | +--------+ + + + + | 06/08/ | Office | Physical Medicine | Rocky Santos, | | | 2019 | Visit | and Rehabilitation | [address] | | | | | | [place] | | | | | | [address] | | | | | | | | +--------+ + + + + | 06/16/ | Appointment | Pulmonology | Eveline Jaffe | | 2019 | | | MD [address] | | | | | | [address] [place] | | | | | | [place] [address] | | | | | | [phone] | | | | | | | | +--------+ + + + + | 06/16/ | Office | Pulmonology | Eveline Jaffe | | | 2019 | Visit | | MD [address] | | | | | | [address] [place] | | | | | | [place] [address] | | | | | | [phone] | | | | | | | | +--------+ + + + + | 08/24/ | Office | Cardiology | Anisha Lopez DO | | | 2019 | Visit | | [address] | | | | | | [place] | | | | | | [address] | | | | | | | | +--------+ + + + + documented as of this encounter Procedures + +--------+ + + + | Procedure Name | Priori | Date/Time | Associated Diagnosis | Comments | | | ty | | | | + +--------+ + + + | XR CERVICAL SPINE 4 | Routin | 04/22/2019 | Cervicalgia | Results for this | | OR 5 VWS | e | 12:11 PM | History of fusion of | procedure are in the | | | | PST | cervical spine | results section. | + +--------+ + + + documented in this encounter Results XR Cervical Spine 4 [...] SPONDYLOLISTHESIS DESCRIBED. Dictated and Signed by: Herminio Dumont | Tim Levi MD Electronically signed: 04/22/2019 3:31 PM | | [...] + | Diagnosis | + + | Cervicalgia | + + | History of fusion of cervical spine Arthrodesis status | + + documented in this encounter"
--- OUTSIDE RECORDS SUMMARY | ~2019-05-05 | XMS | Encounter Summary ---
Demographics + + + | Address | [address] | | | [place] [address] | + + + | Home Phone [...] [place] | | | | | [address] | | + + + + + Care Team Providers + +------+ + | Care Copier Technician Name | Role | Phone | [...] | Bilateral | Offenstein, | [address] | | | | | leg edema | Precious B, | [place], | | | | | Procedures | MD [address] | [place] | | | | | ECHO | [address] | [address] | | | | | Complete | [place], | Phone: | | | | | | [place] [address] | [phone] | | | | | | | Fax: | | | | | | | [phone] | +--------+--------+ + + + + Reason [...] | Bilateral | Offenstein, | [address] | | | | | leg edema | Precious Looney, | [place], | | | | | Procedures | MD [address] | [place] | | | | | ECHO | [address] | [address] | | | | | Complete | [place], | Phone: | | | | | | [place] [address] | [phone] | | | | | | | Fax: | | | | | | | [phone] | +--------+--------+ + + + + Encounter Details +--------+ + + + + | Date | Type | Department | Care Team | Description | +--------+ + + + + | 11/29/ | Hospital | [facility] | Offenstein, | Bilateral leg edema | | 2016 | Encounter | MED CTR ECHO [address] | Precious Looney MD | | | | | [address] [place] | Joe [place]choa, | | | | | [place] [address] | Technologist | | | | | [phone] | | | +--------+ + + + [...] | | | | | type ([facility]) | | | | | | [...] | | | | | | [place] [address] | | | | | | [phone] | | | | | | | | +--------+ + + + + | 06/08/ | Office | Physical Medicine | Rocky Santos, | | | 2019 | Visit | and Rehabilitation | MD [address] | | | | | | [place] | | | | | | [id number] | | | | | | | | +--------+ + + + + | 06/16/ | Appointment | Pulmonology | Eveline Jaffe | | 2019 | | | MD [address] | | | | | | [address] | | | | | | [place] [address] | | | | | | [phone] | | | | | | | | +--------+ + + + + | 06/16/ | Office | Pulmonology | Eveline Jaffe | | | 2019 | Visit | | MD Raul [address] | | | | | | [address] | | | | | | [place] [address] | | | | | | [phone] | | | | | | | | +--------+ + + + + | 08/24/ | Office | Cardiology | Anisha Lopez DO | | | 2019 | Visit | | [address] | | | | | | [place] | | | | | | [address] | | | | | | | | +--------+ + + + + documented as of this encounter Procedures + +--------+ + + + | Procedure Name | Priori | Date/Time | Associated Diagnosis | Comments | | | ty | | | | + +--------+ + + + | ECHO COMPLETE | Routin | 11/30/2015 | Bilateral leg | Results for this | | | e | 10:34 AM | edema | procedure are in the | | | | PDT | | results section. | + +--------+ + + + | LVEF VALUE | Routin | 11/30/2015 | | Results for this | | | e | | | procedure are in the | | | | | | results section. | + +--------+ + + + documented in this encounter Results ECHO Complete (11/30/2015 10:34 AM PDT) + + | Specimen | + + | | + + + +- + | Narrative | Performed At | + +- + | Transthoracic | [facility] | | Echocardiography Report (TTE) Demographics Patient Name GRISELDA | [facility] | | [facility] Room Number YOLANDA Patient | [facility] | | Number [id number] Date of Study 11/30/2015 | - IMAGING | | Visit Number [id number] | | | Referring Physician OUSMANE PRECIOUS Number | | | B Date of | | | 1945 Fruit Loader HOLLEY JEO | | | | | | RDS Age 70 year(s) | | | Suzanne HAIDER | | | Artifacts Conservator LUIS | | | | | | [...] Room Number YOLANDA | | Patient Number [id number] Date of Study 11/30/2015 Visit Number | | [id number] Referring Physician OUSMANE LANG | | Number B Date of 1945 | | Fruit Loader HOLLEY MARTE | | RDS Age 70 year(s) Interpreting NOMAN HAIDER | | Artifacts Conservator LUIS | | LUIS TINEO MD Gender [...] + | [facility] | [address] | [place] | [phone] | | [facility] | | [address] | | | - IMAGING | | | | + + + + + LVEF VALUE (11/30/2015) + +-------+ + + + | Component | Value | Ref Range | Performed | Pathologist | | | | | At | Signature | + +-------+ + + + | LVEF-TTE | 69 | | | | | TRANSTHORAC | | | | | | IC ECHO | | | | | + +-------+ + + + documented in this encounter Visit Diagnoses + + | Diagnosis | + + | Bilateral leg edema Edema | + + documented in this encounter
--- OUTSIDE RECORDS SUMMARY | ~2019-05-05 | XMS | Encounter Summary ---
Demographics + + + | Address | [address] | | | [place] [address] | + + + | Home Phone [...] [place] | | | | | [address] | | + + + + + Care Team Providers + +------+ + | Care Insulation Cutter And Former Name | Role | Phone | + +------+ + | Davis Ivan MD | PCP | | + +------+ + Reason for Visit +--------+ + | Reason | Comments | +--------+ + | Other | increased symptoms | +--------+ + Encounter Details +--------+ + + + + | Date | Type | Department | Care Team | Description | +--------+ + + + + | 06/20/ | Telephone | [facility] [place] | Offenstein, | Other (increased | | 2013 | | PULMONARY [address] | Ayana Looney MD | symptoms) | | | | [place], | | | | | | [place] [address] | | | | | | [phone] | | | +--------+ + + + [...] | | | | | | [facility] | | | | | | [place] [address] | | | | | | [phone] | | | | | | | | +--------+ + + + + | 06/08/ | Office | Physical Medicine | Rocky Santos, | | | 2019 | Visit | and Rehabilitation | MD [address] | | | | | | [place] | | | | | | [address] | | | | | | | | +--------+ + + + + | 06/16/ | Appointment | Pulmonology | Eveline Jaffe | | 2019 | | | MD [address] | | | | | | [address] | | | | | | [place] [address] | | | | | | [phone] | | | | | | | | +--------+ + + + + | 06/16/ | Office | Pulmonology | Eveline Jaffe | | | 2019 | Visit | | MD Raul [address] | | | | | | [address] | | | | | | [place] [address] | | | | | | [phone] | | | | | | | | +--------+ + + + + | 08/24/ | Office | Cardiology | Anisha Lopez DO | | | 2019 | Visit | | [address] | | | | | | [place] | | | | | | [address] | | | | | | | | +--------+ + + + + documented as of this encounter Visit Diagnoses Not on filedocumented in this encounter"
--- OUTSIDE RECORDS SUMMARY | ~2019-05-05 | XMS | Encounter Summary ---
Demographics + + + | Address | [address] | | | [place] [address] | + + + | Home Phone [...] [place] | | | | | [address] | | + + + + + Care Team Providers + +------+ + | Care Quality Control Representative Name | Role | Phone | + +------+ + | Davis Ivan MD | PCP | | + +------+ + Encounter Details +--------+ + + + + | Date | Type | Department | Care Team | Description | +--------+ + + + + | 11/11/ | Hospital | [facility] | Conversion | Pain | | 2013 | Encounter | [address] | Transaction, | | | | | [address] | Provider Unknown | | | | | [place] | [phone] | | | | | [address] | | | | | | [phone] | | | +--------+ + + + [...] | | | | | [place] [address] | | | | | | [phone] | | | | | | | | +--------+ + + + + | 06/08/ | Office | Physical Medicine | Rocky Santos, | | | 2019 | Visit | and Rehabilitation | [address] | | | | | | [place] | | | | | | [address] | | | | | | | | +--------+ + + + + | 06/16/ | Appointment | Pulmonology | Eveline Jaffe | | | 2019 | | | MD [address] | | | | | | [address] [place] | | | | | | [place] [address] | | | | | | [phone] | | | | | | | | +--------+ + + + + | 06/16/ | Office | Pulmonology | Eveline Jaffe | | | 2019 | Visit | | MD [address] | | | | | | [address] [place] | | | | | | [place] [address] | | | | | | [phone] | | | | | | | | +--------+ + + + + | 08/24/ | Office | Cardiology | Anisha Lopez DO | | | 2019 | Visit | | [address] | | | | | | [place] | | | | | | [address] | | | | | | | [...]
--- OUTSIDE RECORDS SUMMARY | ~2019-05-05 | XMS | Encounter Summary ---
Demographics + + + | Address | [address] | | | [place] [address] | + + + | Home Phone [...] [place] | | | | | [address] | | + + + + + Care Team Providers + +------+ + | Care Auctioneer Automobile Name | Role | Phone | + +------+ + | Daivs Ivan MD | PCP | | + +------+ + Encounter Details +--------+ + + + + | Date | Type | Department | Care Team | Description | +--------+ + + + + | 01/31/ | Hospital | [facility] | Conversion | Back pain | | 2013 | Encounter | [address] | Transaction, | | | | | [address] | Provider Unknown | | | | | [place] | [phone] | | | | | [address] | | | | | | [phone] | | | +--------+ + + + [...] | | | | | [place] [address] | | | | | | [phone] | | | | | | | | +--------+ + + + + | 06/08/ | Office | Physical Medicine | Rocky Santos, | | | 2019 | Visit | and Rehabilitation | MD [address] | | | | | | [place] | | | | | | [address] | | | | | | | | +--------+ + + + + | 06/16/ | Appointment | Pulmonology | Eveline Jaffe | | 2019 | | | MD [address] | | | | | | [address] | | | | | | [place] [address] | | | | | | [phone] | | | | | | | | +--------+ + + + + | 06/16/ | Office | Pulmonology | Eveline Jaffe | | | 2019 | Visit | | MD Raul [address] | | | | | | [address] | | | | | | [place] [address] | | | | | | [phone] | | | | | | | | +--------+ + + + + | 08/24/ | Office | Cardiology | Anisha Lopez DO | | | 2019 | Visit | | [address] | | | | | | [place] | | | | | | [address] | | | | | | | | +--------+ + + + + documented as of this encounter Procedures + +--------+ + + + | Procedure Name | Priori | Date/Time | Associated Diagnosis | Comments | | | ty | | | | + +--------+ + + + | MRI LUMBAR SPINE WO | Routin | 01/18/2014 | | Results for this | | CONTRAST | e | 2:35 PM | | procedure are in the | | | | PDT | | results section. | + +--------+ + + + documented in this encounter Results MRI Lumbar Spine wo Contrast (01/18/2014 2:35 PM PDT) + + | Specimen | [...] + | Diagnosis | + + | Back pain Backache, unspecified | + + documented in this encounter"
--- OUTSIDE RECORDS SUMMARY | ~2019-05-05 | XMS | Encounter Summary ---
Demographics + + + | Address | [address] | | | [place] [address] | + + + | Home Phone [...] [place] | | | | | [address] | | + + + + + Care Team Providers + +------+ + | Care Spice Grinder Name | Role | Phone | [...] Looney MD | | | | | [place], | | | | | | [place] [address] | | | | | | [phone] | | | +--------+ + + + [...] | | | | | [place] [address] | | | | | | [phone] | | | | | | | | +--------+ + + + + | 06/08/ | Office | Physical Medicine | Rocky Santos, | | | 2019 | Visit | and Rehabilitation | MD [address] | | | | | | [place] | | | | | | [address] | | | | | | | | +--------+ + + + + | 06/16/ | Appointment | Pulmonology | Eveline Jaffe | | 2019 | | | MD [address] | | | | | | [address] | | | | | | [place] [address] | | | | | | [phone] | | | | | | | | +--------+ + + + + | 06/16/ | Office | Pulmonology | Eveline Jaffe | | | 2019 | Visit | | MD Raul [address] | | | | | | [address] | | | | | | [place] [address] | | | | | | [phone] | | | | | | | | +--------+ + + + + | 08/24/ | Office | Cardiology | Anisha Lopez DO | | | 2019 | Visit | | [address] | | | | | | [place] | | | | | | [id number] | | | | | | | | +--------+ + + + + documented as of this encounter Visit Diagnoses Not on filedocumented in this encounter"
--- OUTSIDE RECORDS SUMMARY | ~2019-05-05 | XMS | Encounter Summary ---
Demographics + + + | Address | [address] | | | [place] [address] | + + + | Home Phone [...] [place] | | | | | [address] | | + + + + + Care Team Providers + +------+ + | Care Vegetable Harvest Worker Name | Role | Phone | [...] | | | | [place], | [place] [address] | | | | | | [place] [address] | Phone: | | | | | | Phone: | [phone] | | | | | | [phone] | Fax: | | | | | | Fax: | [phone] | | | | | | [phone] | | + +--------+ + + + + Encounter Details +--------+---------+ + + + | Date | Type | Department | Care Team | Description | +--------+---------+ + + + | 03/30/ | Office | [facility] | Rodney Worthy | Osteoarthritis of | | 2019 | Visit | ORTHOPEDIC SURGERY | MD [address] | right wrist, | | | | [address] [facility] | [facility] | unspecified | | | | [place] | [place] [address] | osteoarthritis type | | | | [address] | [phone] | (Primary Dx); Right | | | | [phone] | | wrist pain; Chronic | | [...] might be dif ferent from the original. [facility] RETURN CLINIC VISIT Pt. Name/Age/: Thea Carmona [...] Arrhythmia Arthritis COPD (chronic obstructive pulmonary disease) ([facility]) on albuterol Depression HANNAH (dyspnea on exertion) Full dentures upper & lower GERD (gastroesophageal reflux disease) Hyperlipidemia on simvastatin Hypertension on clonidine and lisinopril Hypothyroidism Obesity MARCE (obstructive sleep apnea) no CPAP Osteoporosis Pneumonia 2008 hospitalized 5 days Recurrent squamous cell carcinoma of lung ([facility]) 07/11/[address] and RUL nodule Rheumatoid arthritis(714.0) on prednisone and methotrexate, Dr. Lewis, [place] Spinal stenosis has tried cortisone injections Spondylolisthesis of cervical region Sputum culture positive for Scopulariopsis species Squamous cell carcinoma of lung ([facility]) 07/2013 right lower lobe Stroke ([facility]) 2006 Stroke ([facility]) 2007 left sided weakness Upper GI bleed 06/[address] [facility] Wears dentures Past Surgical History: Procedure Laterality Date BACK SURGERY 03/2014 BLADDER SUSPENSION BRONCHOSCOPY 07/11/2014 EBUS with right hilar LN biopsy, [facility] [place] CERVICAL SPINE SURGERY 2012 CHOLECYSTECTOMY COLONOSCOPY 06/2014 ENDOSCOPY FINGER TRIGGER RELEASE Left 12/14/2018 Procedure: Left Thumb Trigger Finger Release, Left Index Trigger Finger Release, Left Long Trigger Finger Release, Left Ring Trigger Finger Release; Surgeon: Giuliano Padilla MD; Lo cation: [facility] MAIN OR HAND ARTHROPLASTY Left 03/20/2015 Procedure: Left 1st C.M.C. Arthroplasty; Surgeon: Giuliano Padilla MD; Location: [facility] MAIN OR HAND ARTHROPLASTY Right 10/27/2017 Procedure: Right 1st CMC Arthroplasty; Surgeon: Giuliano Padilla MD; Location: [facility] MAIN O R HYSTERECTOMY LOBECTOMY 09/16/13 right lower lobe LUNG BIOPSY 07/21/13 right lower lobe SHOULDER SURGERY SHOULDER SURGERY right shoulder THUMB SURGERY TONGUE SURGERY benign per pt TUNNELED VENOUS PORT PLACEMENT N/A 07/28/2014 Procedure: Port Placement; Surgeon: Chalino Chiu MD; Location: [facility] MAIN OR Allergies: No Known Allergies [...] Supplies (NEBULIZER/TUBING/MOUTHPIECE) KIT Use as directed with Shareholder InSite ulizer machine. 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 I think that is useful. Her pain [...] made to ensure accuracy; however, inadvertent computerized tank truck mechanic errors may be pre sent. I appreciate [...] | | | | | | [facility] | | | | | | [place] [address] | | | | | | [phone] | | | | | | | | +--------+ + + + + | 06/08/ | Office | Physical Medicine | Rocky Santos, | | | 2019 | Visit | and Rehabilitation | MD [address] | | | | | | [place] | | | | | | [address] | | | | | | | | +--------+ + + + + | 06/16/ | Appointment | Pulmonology | Eveline Jaffe | | 2019 | | | MD [address] | | | | | | [address] | | | | | | [place] [address] | | | | | | [phone] | | | | | | | | +--------+ + + + + | 06/16/ | Office | Pulmonology | Eveline Jaffe | | 2019 | Visit | | Sherrin, MD [address] | | | | | | [address] | | | | | | [place] [address] | | | | | | [phone] | | | | | | | | +--------+ + + + + | 08/24/ | Office | Cardiology | Anisha Lopez DO | | | 2019 | Visit | | [address] | | | | | | [place] | | | | | | [address] | | | | | | | [...]
--- OUTSIDE RECORDS SUMMARY | ~2019-05-05 | XMS | Encounter Summary ---
Demographics + + + | Address | [address] | | | [place] [address] | + + + | Home Phone [...] [place] | | | | | [phone] | | + + + + + Care Team Providers + +------+ + | Care Registration Rep Name | Role | Phone | + [...] | | | Pneumonia | | | | | | | pneumonia | | | +--------+--------+ + + + + Encounter Details +--------+ + + + + | Date | Type | Department | Care Team | Description | +--------+ + + + + | 10/02/ | Hospital | [facility] | Dimitri Kim, | Chronic obstructive | | 2015 - | Encounter | [facility] | MD Nichole ZAPATA | pulmonary disease, | | | | [address] [place] | [place] | unspecified COPD | | 10/05/ | | [place] [address] | [id number] | type (HCC) (Primary | | 2016 | | [phone] | | Dx); Recurrent | | | | | Bony Hernandez P, | squamous cell | | | | | MD [address] | carcinoma of lung, | | | | | [place], [place] | right (HCC); CAP | | | | | [id number] | (community acquired | | | | | | pneumonia); Chronic | | | | | | pain syndrome; | | | | | | Chronic bronchitis, | | | | | | unspecified chronic | | | | | | bronchitis type | | | | | | (HCC); Fungus | | | | | | disease; Radiation | | | | | | [...] + + + | Blood Pressure | 161/77 | 10/06/2015 7:42 AM | | | | | PDT | | + + + + + | Pulse | 73 | 10/06/2015 11:49 AM | | | | | PDT | | + + + + + | Temperature | 36.6 C (97.9 F) | 10/06/2015 7:42 AM | | | | | PDT | | + + + + + | Respiratory Rate | 18 | 10/06/2015 7:42 AM | | | | | PDT | | + + + + + | Oxygen Saturation | 97% | 10/06/2015 11:49 AM | | | | | PDT | | + + + + + | Inhaled Oxygen | - | - | | | Concentration | | | | + + + + + | Weight | 80.4 kg (177 lb 4 | 10/06/2015 4:36 AM | | | | oz) | PDT | | + + + + + | Height | 157.5 cm (5' 2") | 10/03/2015 4:13 AM | | | | | PDT | | + + + + + | Body Mass Index | 32.42 | 10/03/2015 4:13 AM | | | | | PDT | | + + + + + documented in this encounter Discharge Summaries Bony Hernandez MD - 10/06/2015 11:37 AM PDTFormatting of this note might be different f rom the original. HOSPITALIST DISCHARGE SUMMARY [facility] in [place], [place] Pt. Name/Age/: Thea Carmona 70 y.o. 1945 Date of admission: 10/03/2015 Discharge date and time: October 06, 2015 from inpatient hospitalization. Hospital Day: 4 Admitting Physician: Dimitir Kim MD Primary Care Physician: Davis Ivan MD CHIEF DIAGNOSES: Active Hospital Problems Diagnosis CAP (community acquired pneumonia) Recurrent squamous cell carcinoma of lung COPD (chronic obstructive pulmonary disease) Resolved Hospital Problems Diagnosis No resolved problems to display. Code Status: Full Code POLST form No OTHER and ALL DIAGNOSES: Patient Active Problem List Diagnosis COPD (chronic obstructive pulmonary disease) Rheumatoid arthritis(714.0) Depression Chronic pain Anxiety Osteoporosis Hyperlipidemia Hypertension Hypothyroidism GERD (gastroesophageal reflux disease) MARCE (obstructive sleep apnea) Spinal stenosis in cervical region Sputum culture positive for Scopulariopsis species Pulmonary nodules Recurrent squamous cell carcinoma of lung Radiation pneumonitis CAP (community acquired pneumonia) Procedures & Diagnostic Studies: RT, IV antibiotics, steroids Consults: None Reason for Admission: See H&P for further details, but in summary Thea Carmona is a 70 y.o. year old female followed by Davis Ivan MD, who presented with cough, wheezing, and shortness of breath, not responding to outpatient treatment. Hospital Course: The patient was slow to respond, but she didn't have any significant fevers, and her wheez ing did improve slowly but surely. She had been on three antibiotics prior to admission, bu t didn't respond. She does have recurrent cancer and takes dilaudid at home, so it did occu r to me that perhaps she is aspirating at night. I don't really have a ready solution for t hat possibility. Though she was still wheezing at the time of discharge, her son was going to visit on moth er's day, and she really wanted to go home. I felt it was safe for that on augmentin and ta pering doses of steroids. I didn't change any of the other medications. DISCHARGE MEDICATIONS: Discharge Medications New Medications Details amoxicillin-clavulanate 500-125 mg per tablet Take 1 tablet by mouth 2 times daily for 10 days. aka: AUGMENTIN Unchanged Medications Details albuterol 90 mcg/puff inhaler Inhale 2 puffs into the lungs every 6 hours as needed for Wheezing or Shortness of Breath. albuterol-ipratropium 2.5-0.5 mg/3 mL Soln Take 3 mLs by nebulization 4 times daily. CASIE: 12 months Dx: J44.9 aka: DUONEB ETHAN ALLERGY PO Take by mouth Daily. aspirin 81 MG tablet Take 81 mg by mouth Daily. Blood Pressure Cuff [facility] [place] Please provide patient with appropriate sized blood pressure cuff for 12.5" arm. Dx: Hyper tension I10 CASIE: 99 months cholecalciferol 1,000 units capsule Take 1,000 Units by mouth Daily. aka: VITAMIN D-3 cloNIDine 0.1 mg tablet Take by mouth Daily. aka: CATAPRES clopidogrel 75 mg tablet Take 75 mg by mouth Daily. aka: PLAVIX diazepam 2 mg tablet nightly as needed. aka: VALIUM ferrous sulfate 28 MG Tabs Take 28 mg by mouth Daily. aka: IRON fluticasone-vilanterol 200-25 mcg/puff inhaler Inhale 1 puff into the lungs Daily. aka: BREO ELLIPTA folic acid 1 mg tablet Take 1 mg by mouth Daily. HYDROcodone-acetaminophen 7.5-325 mg/15 mL liquid Take 15 mLs by mouth 4 times daily as needed for Pain. aka: HYCET HYDROmorphone 4 MG tablet Take 8 mg by mouth every 6 hours as needed. aka: DILAUDID LORazepam 1 mg tablet Take 1 mg by mouth every 6 hours as needed for Anxiety. aka: ATIVAN Magnesium 100 MG Caps Take by mouth Daily. MUCINEX 600 mg 12 hr tablet Generic drug: guaiFENesin Take 1,200 mg by mouth as needed. Nebulizer Compressor Kit Use as directed with nebulizer medication. Dx: J43.1 CASIE: 99 months omeprazole 40 MG capsule Take 1 capsule by mouth every morning (before breakfast). aka: priLOSEC predniSONE 5 mg tablet Take 10 mg by mouth Daily. aka: DELTASONE predniSONE 10 mg tablet 4 tabs orally daily for 3 days then decrease by 1 tab every 3 days. Resume 10mg dose when complete. aka: DELTASONE ranitidine 150 mg tablet Take 1 tablet by mouth 2 times daily. aka: ZANTAC simvastatin 40 mg tablet Take 40 mg by mouth nightly. aka: ZOCOR SYNTHROID 100 mcg tablet Generic drug: levothyroxine Take 75 mcg by mouth every morning (before breakfast). venlafaxine 75 MG tablet Take 37.5 mg by mouth 2 times daily. aka: EFFEXOR Medications Discontinued During This Encounter Medication Reason albuterol 2.5 mg/3 mL nebulizer solution 2.5 mg albuterol-ipratropium (DUONEB) 2.5-0.5 mg/3 mL nebulizer solution 3 mL omeprazole (priLOSEC) capsule 40 mg Formulary change piperacillin-tazobactam (ZOSYN) 3.375 g in sodium chloride 0.9% 100 mL IVPB Other albuterol-ipratropium (DUONEB) 2.5-0.5 mg/3 mL nebulizer solution 3 mL albuterol 2.5 mg/3 mL nebulizer solution 2.5 mg HYDROmorphone (DILAUDID) injection 0.4-0.8 mg vancomycin 1 g in sodium chloride 0.9% 250 mL IVPB predniSONE (DELTASONE) 10 mg tablet DISCHARGE Instructions; FOLLOWUP APPOINTMENTS and ISSUES; Future Appointments Date Time Provider Department Center 11/07/2015 13:00 Ayana Taylor MD [facility] Follow-up Information Follow up with Davis Ivan MD In 2 weeks. Specialty: Family Medicine Contact information: [address] [facility] [address] [place] [address] Follow up issues and pending labs needing to be addressed: Perhaps a CXR in a couple of weeks. DATA: Objective Data on Day of Discharge: Temp: 36.6 C (97.9 F) BP: 161/77 mmHg Pulse: 72 Resp: 18 SpO2: 98 % on O2 Min/Max Temp past 24 hours:Temp Av.6 C (97.9 F) Min: 36.5 C (97.7 F) Max: 3 6.7 C (98.1 F) Weight most recent: Weight: 80.4 kg (177 lb 4 oz) BMI: Body mass index is 32.41 kg/( m^2). Physical Examination Today: Constitutional: Well developed, well nourished, no acute distress, non-toxic appearance Eyes: PERRL, EOMI, conjunctiva normal HEENT: NC/AT, Neck- normal range of motion, no tenderness, supple Respiratory: Still wheezing. Cardiovascular: Regular rate and rhythm, no murmurs, gallops, or rubs. GI: Soft, nondistended, normal bowel sounds, nontender, no rebound, no guarding : No costovertebral angle tenderness Musculoskeletal: No edema, no tenderness, Integument: Well hydrated, no rashes or concerning skin lesions Lymphatic: No cervical or inguinal lymphadenopathy Neurologic: Alert & oriented x 3 Psychiatric: Speech and behavior appropriate Selected Labs/Studies: Recent Labs Lab 10/04/15 0447 10/03/15 0535 WBC 12.4* 16.4* HGB 11.3* 12.4 HCT 35.4 39.0 PLT 194 198 Recent Labs Lab 10/04/15 0447 10/03/15 0535 NA 139 137 K 3.8 3.6 CL 106 103 CO2 26 26 BUN 15 9 CREA 0.92 1.00 CALCIUM 7.9* 8.1* ALBUMIN -- 2.7* BILITOT -- 0.7 ALT -- 23 AST -- 29 ALKPHOS -- 57 No results for input(s): PHART, PO2ART, HMG9ZFV, G4CWIVJE, BEART in the last 168 hours. No results for input(s): BNP, DDIMER in the last 168 hours. Invalid input(s): CKTOTAL, TROPONINI, CKMBINDEX Recent Labs Lab 10/03/15 0535 INR 1.03 No results found for: POCGLU Patient was seen and examined today and [facility] Electronically signed by: Bony Hernandez MD 10/06/2015 11:37 Portions of this chart may have been created with [employer] voice recognition software. Occasi onal wrong-word or sound-alike substitutions may have occurred due to the inherent guzman itations of voice recognition software. Please read the chart carefully and recognize, using context, where these substitutions have occurred. documented in this encounter Medications at Time [...] | | Take 1 tablet by | 20 | 0 | 10/06/19 | | | amoxicillin-clavulan | mouth 2 times daily | tablet | | 16 | 6 | | ate (AUGMENTIN) | for 10 days. | | | | | | 500-125 mg per | | | | | [...] orally daily | 30 | 0 | 10/06/19 | | | (DELTASONE) 10 mg | for 3 days then | tablet | | 16 | 6 | | tablet | decrease by 1 [...] documented as of this encounter Progress Notes Bunny Cruz, PharmD - 10/06/2015 8:18 AM PDT VANCOMYCIN PER PHARMACY PROTOCOL: Subjective/Objective: Thea Carmona is a 70 y.o. female admitted on 10/03/2015 for Dyspnea, cough, chest pa in, and fever. Patient is receiving vancomycin starting on 10/03/2015 for possible pneumonia. Patient has a past medical history of COPD (chronic obstructive pulmonary disease) (HCC); S pondylolisthesis of cervical region; Spinal stenosis; Osteoporosis; Depression; Pneumonia (2 009); Rheumatoid arthritis(714.0) ([facility]); Hyperlipidemia; Hypertension; Hypothyroidism; GERD (gastroesophageal reflux disease); Stroke ([facility]) (2006); Stroke ([facility]) (2007); Squamous cell c arcinoma of lung ([facility]) (07/2013); Sputum culture positive for Scopulariopsis species; 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 Allergies Review of patient's allergies indicates no known allergies. Historical Vancomycin dosing (previous & current encounter): none Admission Wt: Weight: 81.6 kg (179 lb 14.3 oz) Current Wt: Weight: 80.4 kg (177 lb 4 oz) Min/Max Temp past 24 hours:Temp Av.6 C (97.9 F) Min: 36.5 C (97.7 F) Max: 3 6.7 C (98.1 F) Estimated Creatinine Clearance: 55 mL/min (based on Cr of 0.92). Intake/Output Summary (Last 24 hours) at 10/06/15 0818 Last data filed at 10/06/15 0628 Gross per 24 hour Intake 1910 ml Output 1704 ml Net 206 ml Temp: [36.5 C (97.7 F)-36.7 C (98.1 F)] 36.6 C (97.9 F) Pulse: [65-82] 65 Resp: [18-21] 18 BP: (125-163)/(63-77) 161/77 mmHg Vitals with Comments 10/05/2015 10/05/2015 10/06/2015 10/06/2015 SYSTOLIC - 125 163 161 DIASTOLIC - 63 72 77 Pulse 75 73 82 65 Temp - 97.7 98.1 97.9 Resp 18 18 21 18 Weight - - 177 lbs 4 oz - Height - - - - SPO2 95 94 95 92 SPO2 Comments - - - - BMI - - - - Pain Score - - - - Pain Score - - - - Pain Loc - - - - Pain Loc - - - - Pain Edu? - - - - Other antibiotics: Zosyn 4.5 g x1 followed by 3.375 g q8h Micro/Cultures/Diagnostics: Microbiology Results (Last 14 Days by Collected Date with Culture/Sensitivity) Procedure Component Value Units Date/Time Culture, Respiratory, Lower, Smear [[id number]] Collected: 10/03/15 1756 Order Status: Completed Lab Status: Final result Updated: 10/05/15 1458 Specimen Information: Respiratory / Sputum, expectorated Culture 2+ Usual Respiratory Aline 1+ Renee albicans Gram Stain Result 3+ White Blood Cells 2+ Epithelial cells 1+ Gram positive cocci Culture, Blood [[id number]] Collected: 10/03/15 1459 Order Status: Completed Lab Status: Preliminary result Updated: 10/04/15310 Specimen Information: Blood / Peripheral Blood Culture Result: No growth: Monitored continually by instrument for 5 days Culture, Blood [[id number]] Collected: 10/03/15 1448 Order Status: Completed Lab Status: Preliminary result Updated: 10/04/15310 Specimen Information: Blood / Peripheral Blood Culture Result: No growth: Monitored continually by instrument for 5 days Culture, Blood [[id number]] Order Status: Canceled Lab Status: No result Specimen Information: Blood / Peripheral Blood Culture, Urine [[id number]] Collected: 10/03/15 0543 Order Status: Completed Lab Status: Final result Updated: 10/05/15 1053 Specimen Information: Urine / Urine, clean catch Culture Result: 30,000 - 40,000 CFU/ml Mixed aline (multiple morphologies present) Comment: Suggests contamination with urogenital or skin aline. Culture, MRSA [[id number]] Collected: 10/03/15 0449 Order Status: Completed Lab Status: Final result Updated: 10/04/15 0755 Specimen Information: Respiratory / Nares Culture Negative for MRSA by chromogenic agar method UA: moderate blood, 5-10 RBC, 5-10 squamous epi cells, few budding yeasts, bacteria (-) Recent Labs Lab 10/05/15 0806 10/04/15 0447 10/03/15 0535 WBC -- 12.4* 16.4* CREA -- 0.92 1.00 VANCORANDOM 7.6 -- -- Imagin10/04/15 CXR: 1. SLIGHTLY MORE PRONOUNCED HAZY RETICULAR OPACITY AT THE RIGHT BASE, POSSIBL Y REFLECTING ATELECTASIS, SCAR OR EARLY INFILTRATE. 2. OTHERWISE STABLE APPEARANCE OF THE CHEST, WITH PLATELIKE RIGHT RETROHILAR OPACITY FAVORING THERAPY RELATED ATELECTASIS/SCAR, AN D PROBABLE RIGHT BASILAR PLEURAL PARENCHYMAL SCAR. 03/28/15 CT Chest: Findings consistent with a response to therapy and associated changes in the adjacent lung. No findings to suggest disease progression. Density and heterogeneity of the marrow, in particular in the vertebral bodies, is likely chemotherapy related. Interval development of a mild superior endplate deformity of T7. This appears to be subacute. Stabl e dilated biliary ducts. Date 10/02 10/03 10/04 10/05 Time of Vanco level -- -- 0806 -- Vancomycin level -- -- 7.6 -- Serum Creatinine 1.00 0.92 0.92 -- CrCl (mL/min) 51 54 53 -- Vanco load/bolus -- -- Vanco dose - current -- 1000 mg q24hr 1000 mg q24hr 1250 q24h Vanco dose - new 1000 mg q24hr same 1250 mg q24hr -- Assessment: Vancomycin and Zosyn Day # 4 Target Trough: 15-20 mcg/ml for possible pneumonia Patient has a hx of COPD and lung CAwho presents with 2 day history ofincreasing dys pnea, wheezing, right-sided chest pain, productive cough, and fever. Transfer from [place] . She had SCC right lung with RLL lobectomy 08/2013, XRT and CMT for recurrence 07/2014. Most recently treated with Opdvio completing 6 cycles on 09/12/2015. Opdivo may cause pulmonary to xicity. She reports 3 rounds of ABX in recent weeks (Received doxycycline 100 mg twice daily for 10 days on 09/07/15. Unsure what other 2 antibiotic courses were). Also chronically on pr ednisone for RA. 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 Patient is at risk for recurrent aspiration due to large doses of dilaudid at home. WBC: 12.4; Renal: SCr 0.92 (baseline SCr 0.8) and CrCl 53 mL/min; Temp: 36.7C; Culture: Resp and urine cx pending, resp now has 1+ GPC, urine NGTD; VS: fairly stable, on room air O 2 sats 92% Renal function: slightly worse than baseline IBW= 50.1 kg, ABW= 78.6 kg 156% of IBW, AdjBW= Will dose patient's vancomycin based on a djusted BW which is 61.5 kg Plan: 1. Vancomycin 1250 mg IVPB q24h based on renal function. 2. Repeat vancomycin level scheduled for 10/07/15 @ 0930 (draw 60 minutes prior to hanging 3r d NEW dose); This level is to ensure concentrations do not become supratherapeautic and will not be used to assess SS or change dose unless level is HIGH. 3. Serum creatinine at least every 3 days while on vancomycin 4. Will monitor renal function, clinical status, infection markers daily with troughs and d ose adjustment as needed. References: IDSA guidelines Procalcitonin Algorithm Per P&T-approved Vancomycin Dosing and Monitoring Protocol Electronically signed by: Bunny Cruz PHARMD 10/06/2015 8:18 Bony Goldstein MD - 10/05/2015 12:16 PM PDTFo rmatting of this note might be different from the original. HOSPITALIST PROGRESS NOTE on 10/05/2015 [facility] Pt. Name/Age/: Thea Carmona 70 y.o. 1945 Med. Record Number: [id number] Primary Care Physician: Davis Ivan MD Date of admission: 10/03/2015 Hospital Day: 3 ASSESSMENT AND PLAN: CHIEF PROBLEMS: Principal Problem: CAP (community acquired pneumonia) Active Problems: COPD (chronic obstructive pulmonary disease) Recurrent squamous cell carcinoma of lung Code Status: Full Code PLAN Same. Disposition: Home. Brief Summary Hospitalization: 70 yo WF with SCC of right lung, with recurrence, on chemo who has had persistent cough, l ow grade fever, and SOB for the last few weeks. Came to ER in [place] and was sent here for pneumonia. Sees Dr. Park and Dr. Taylor. Placed on steroids and antibioti cs as well as aggressive RT. Last chest CT six months ago here. With her rather large do ses of dilaudid at home, we need to keep in mind the possibility of recurrent aspiration, so I do agree that zosyn is indicated. CXR suggests infiltrate in right base morning of 5/5. Patient is hoping to be discharged Thursday, the first mother's day her son has been able to get off in years. DISCUSSION: SUBJECTIVE: The patient chart and medications were reviewed and the patient was seen and examined. No new complaints. Feels just a bit better every day. OBJECTIVE: Vitals: Temp: 36 C (96.8 F) BP: 144/71 mmHg Pulse: 71 Resp: 18 SpO2: 93 % RA Min/Max Temp past 24 hours: Temp Av.3 C (97.3 F) Min: 36 C (96.8 F) Max: 36 .6 C (97.9 F) Intake/Output Summary (Last 24 hours) at 10/05/15 1217 Last data filed at 10/05/15 1000 Gross per 24 hour Intake 1187 ml Output 1651 ml Net -464 ml Wt. Admission: Weight: 81.6 kg (179 lb 14.3 oz) Wt. Current: Weight: 73.9 kg (162 lb 14 .7 oz) Physical Examination: Constitutional: No acute distress, non-toxic appearance Eyes: conjunctiva normal. PERRL HEENT: Supple, normal ROM and without adenopathy. Oropharynx moist, no pharyngeal exudate s. Respiratory: Mild respiratory distress, still wheezing, but less so than yesterday. Cardiovascular: Normal rate, normal rhythm, no murmurs, no gallops, no rubs. GI: Soft, nondistended, normal bowel sounds, nontender, no organomegaly, no mass, no rebou nd, no guarding Diagnostic Studies: Radiology: Available data and images were reviewed personally. Xr Chest Pa And Lateral 10/04/2015 PA AND LATERAL CHEST 10/04/2015 6:41 AM CLINICAL HISTORY: pneumonia, lung cancer COMPARISON: Chest CT March 2015, chest radiograph August 2014 and multiple previous radiog raphs FINDINGS: The implanted left internal jugular port catheter again extends to the leve l of the mid SVC. The cardiomediastinal silhouette is otherwise unremarkable. There is sim ilar bandlike right retrohilar opacity and surgical clips again project within the right hil um, corresponding with changes of right lower lobectomy visible on previous CT. There is st able tenting of the right lower mediastinal border and blunting of the right lateral costoph renic angle. Mild hazy reticular opacity at the right base is slightly more pronounced, whi le there is stable hazy opacity at the anterior left base, corresponding with epicardial fat visible on previous CT. The lungs are clear elsewhere, and no pneumothorax or definite ple ural effusion is visible. Cholecystectomy clips are again suggested. Anterior and posterio r fusion hardware again projects over the imaged cervical spine. There is stable mild compr ession deformity of a mid thoracic vertebral body. Truncation of the distal right clavicle is chronic. IMPRESSION - 1. SLIGHTLY MORE PRONOUNCED HAZY RETICULAR OPACITY AT THE RIGHT BASE, POSSIBLY REFLECTING ATELECTASIS, SCAR OR EARLY INFILTRATE. 2. OTHERWISE STABLE APPE ARANCE OF THE CHEST, WITH PLATELIKE RIGHT RETROHILAR OPACITY FAVORING THERAPY RELATED ATELEC TASIS/SCAR, AND PROBABLE RIGHT BASILAR PLEURAL PARENCHYMAL SCAR. Dictated and Signed by: Flaca Levi MD Electronically signed: 10/04/2015 9:02 AM Selected Labs/Studies: Recent Labs Lab 10/04/1544610/03/15 0535 WBC 12.4* 16.4* HGB 11.3* 12.4 HCT 35.4 39.0 PLT 194 198 Recent Labs Lab 10/04/15 0447 10/03/15 0535 NA 139 137 K 3.8 3.6 CL 106 103 CO2 26 26 BUN 15 9 CREA 0.92 1.00 CALCIUM 7.9* 8.1* ALBUMIN -- 2.7* BILITOT -- 0.7 ALT -- 23 AST -- 29 ALKPHOS -- 57 No results for input(s): PHART, PO2ART, GQM3VAH, W6YBCQKD, BEART in the last 168 hours. No results for input(s): TROPONINT, BNP in the last 168 hours. Invalid input(s): CKTOTAL, TROPONINI, CKMBINDEX Recent Labs Lab 10/03/15 0535 INR 1.03 No results found for: POCGLU Micro results last 72hrs: Microbiology Results (72 hrs) Procedure Component Value Units Date/Time Culture, Respiratory, Lower, Smear [[id number]] Collected: 10/03/15 6501 Order Status: Completed Lab Status: Preliminary result Updated: 10/04/15 6206 Specimen Information: Respiratory / Sputum, expectorated Culture Culture in progress... 1+ Usual Respiratory Aline Gram Stain Result 3+ White Blood Cells 2+ Epithelial cells 1+ Gram positive cocci Culture, Blood [[id number]] Collected: 10/03/15 1459 Order Status: Completed Lab Status: Preliminary result Updated: 10/04/15 031 Specimen Information: Blood / Peripheral Blood Culture Result: No growth: Monitored continually by instrument for 5 days Culture, Blood [[id number]] Collected: 10/03/15 1448 Order Status: Completed Lab Status: Preliminary result Updated: 10/04/15310 Specimen Information: Blood / Peripheral Blood Culture Result: No growth: Monitored continually by instrument for 5 days Culture, Urine [[id number]] Collected: 10/03/15 0543 Order Status: Completed Lab Status: Final result Updated: 10/05/15 1053 Specimen Information: Urine / Urine, clean catch Culture Result: 30,000 - 40,000 CFU/ml Mixed aline (multiple morphologies present) Comment: Suggests contamination with urogenital or skin aline. Culture, MRSA [[id number]] Collected: 10/03/15 0449 Order Status: Completed Lab Status: Final result Updated: 10/04/15 0755 Specimen Information: Respiratory / Nares Culture Negative for MRSA by chromogenic agar method MEDICATIONS: SCHEDULED PRN albuterol-ipratropium 3 mL Nebulization RT 4x DAILY aspirin 81 mg Oral Daily budesonide 0.5 mg Nebulization RT BID clopidogrel 75 mg Oral Daily enoxaparin (LOVENOX) injection 40 mg Subcutaneous Daily levothyroxine 75 mcg Oral QAM AC pantoprazole 40 mg Oral BID AC pharmacy to dose vancomycin Other Pharmacy Consult piperacillin-tazobactam 3.375 g Intravenous Q8H predniSONE 40 mg Oral Daily vancomycin IV 1,250 mg Intravenous Q24H venlafaxine 37.5 mg Oral BID albuterol, aluminum & magnesium hydroxide-simethicone, bisacodyl, HYDROmorphone, HYDROmor phone, LORazepam, magnesium hydroxide, ondansetron OR ondansetron DVT Prophylaxis Lovenox [facility] Documentation I expect this patient will be hospitalized for greater than 2-midnights and expect the post -hospital plan to be discharge to home or to an adult foster home. Electronically signed by: Bony Hernandez MD, 10/05/2015 12:17 [facility] Portions of this chart may have been created withs Dragon voice recognition software. Occas ional wrong-word or sound-alike substitutions may have occurred due to the inherent li mitations of voice recognition software. Please read the chart carefully and recognize, nay wilson context, where these substitutions have occurred. harity Nielson , PharmD - 10/05/2015 10:05 AM PDTFormatting of this note might be different from the origin al. VANCOMYCIN PER PHARMACY PROTOCOL: Subjective/Objective: Thea Carmona is a 70 y.o. female admitted on 10/03/2015 for Dyspnea, cough, chest pa in, and fever. Patient is receiving vancomycin starting on 10/03/2015 for possible pneumonia. Patient has a past medical history of COPD (chronic obstructive pulmonary disease) ([facility]); S pondylolisthesis of cervical region; Spinal stenosis; Osteoporosis; Depression; Pneumonia (2 009); Rheumatoid arthritis(714.0) ([facility]); Hyperlipidemia; Hypertension; Hypothyroidism; GERD (gastroesophageal reflux disease); Stroke ([facility]) (2006); Stroke ([facility]) (2007); Squamous cell c arcinoma of lung ([facility]) (07/2013); Sputum culture positive for Scopulariopsis species; 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 Allergies Review of patient's allergies indicates no known allergies. Historical Vancomycin dosing (previous & current encounter): none Admission Wt: Weight: 81.6 kg (179 lb 14.3 oz) Current Wt: Weight: 73.9 kg (162 lb 14.7 oz) Min/Max Temp past 24 hours:Temp Av.3 C (97.4 F) Min: 36 C (96.8 F) Max: 36. 6 C (97.9 F) Estimated Creatinine Clearance: 53 mL/min (based on Cr of 0.92). Intake/Output Summary (Last 24 hours) at 10/05/15 1005 Last data filed at 10/05/15 0600 Gross per 24 hour Intake 947 ml Output 1250 ml Net -303 ml Temp: [36 C (96.8 F)-36.6 C (97.9 F)] 36 C (96.8 F) Pulse: [66-79] 71 Resp: [16-20] 18 BP: (106-144)/(55-75) 144/71 mmHg Vitals with Comments 10/05/2015 10/05/2015 10/05/2015 10/05/2015 SYSTOLIC 114 - - 144 DIASTOLIC 75 - - 71 Pulse 74 - 75 71 Temp 97.7 - - 96.8 Resp - 18 Weight - 162 lbs 15 oz - - Height - - - - SPO2 93 - 94 93 SPO2 Comments - - - - BMI - - - - Pain Score - - - - Pain Score - - - - Pain Loc - - - - Pain Loc - - - - Pain Edu? - - - - Other antibiotics: Zosyn 4.5 g x1 followed by 3.375 g q8h Micro/Cultures/Diagnostics: Microbiology Results (Last 14 Days by Collected Date with Culture/Sensitivity) Procedure Component Value Units Date/Time Culture, Respiratory, Lower, Smear [[id number]] Collected: 10/03/15 1756 Order Status: Completed Lab Status: Preliminary result Updated: 10/04/15722 Specimen Information: Respiratory / Sputum, expectorated Culture Culture in progress... 1+ Usual Respiratory Aline Gram Stain Result 3+ White Blood Cells 2+ Epithelial cells 1+ Gram positive cocci Culture, Blood [[id number]] Collected: 10/03/15 1459 Order Status: Completed Lab Status: Preliminary result Updated: 10/04/15310 Specimen Information: Blood / Peripheral Blood Culture Result: No growth: Monitored continually by instrument for 5 days Culture, Blood [[id number]] Collected: 10/03/15 1448 Order Status: Completed Lab Status: Preliminary result Updated: 10/04/15310 Specimen Information: Blood / Peripheral Blood Culture Result: No growth: Monitored continually by instrument for 5 days Culture, Blood [[id number]] Order Status: Canceled Lab Status: No result Specimen Information: Blood / Peripheral Blood Culture, Urine [[id number]] Collected: 10/03/15 0543 Order Status: Completed Lab Status: Preliminary result Updated: 10/04/1514 Specimen Information: Urine / Urine, clean catch Culture No growth to date Culture, MRSA [[id number]] Collected: 10/03/15 2840 Order Status: Completed Lab Status: Final result Updated: 10/04/15 0755 Specimen Information: Respiratory / Nares Culture Negative for MRSA by chromogenic agar method UA: moderate blood, 5-10 RBC, 5-10 squamous epi cells, few budding yeasts, bacteria (-) Recent Labs Lab 10/05/15 0806 10/04/15 0447 10/03/15 0535 WBC -- 12.4* 16.4* CREA -- 0.92 1.00 VANCORANDOM 7.6 -- -- Imagin10/04/15 CXR: 1. SLIGHTLY MORE PRONOUNCED HAZY RETICULAR OPACITY AT THE RIGHT BASE, POSSIBL Y REFLECTING ATELECTASIS, SCAR OR EARLY INFILTRATE. 2. OTHERWISE STABLE APPEARANCE OF THE CHEST, WITH PLATELIKE RIGHT RETROHILAR OPACITY FAVORING THERAPY RELATED ATELECTASIS/SCAR, AN D PROBABLE RIGHT BASILAR PLEURAL PARENCHYMAL SCAR. 03/28/15 CT Chest: Findings consistent with a response to therapy and associated changes in the adjacent lung. No findings to suggest disease progression. Density and heterogeneity of the marrow, in particular in the vertebral bodies, is likely chemotherapy related. Interval development of a mild superior endplate deformity of T7. This appears to be subacute. Stabl e dilated biliary ducts. Date 10/02 10/03 10/04 Time of Vanco level -- -- 0806 Vancomycin level -- -- 7.6 Serum Creatinine 1.00 0.92 0.92 CrCl (mL/min) 51 54 53 Vanco load/bolus 1000 mg Vanco dose - current -- 1000 mg q24hr 1000 mg q24hr Vanco dose - new 1000 mg q24hr same 1250 mg q24hr Assessment: Vancomycin and Zosyn Day # 3 Target Trough: 15-20 mcg/ml for possible pneumonia Patient has a hx of COPD and lung CAwho presents with 2 day history ofincreasing dys pnea, wheezing, right-sided chest pain, productive cough, and fever. Transfer from [place] . She had SCC right lung with RLL lobectomy 08/2013, XRT and CMT for recurrence 07/2014. Most recently treated with Opdvio completing 6 cycles on 09/12/2015. Opdivo may cause pulmonary to xicity. She reports 3 rounds of ABX in recent weeks (Received doxycycline 100 mg twice daily for 10 days on 09/07/15. Unsure what other 2 antibiotic courses were). Also chronically on pr ednisone for RA. 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 Patient is at risk for recurrent aspiration due to large doses of dilaudid at home. WBC: 12.4; Renal: SCr 0.92 (baseline SCr 0.8) and CrCl 53 mL/min; Temp: 36.0 (96.8F); Cu lture: Resp and urine cx pending, resp now has 1+ GPC, urine NGTD; VS: fairly stable, on julieta m air O2 sats 92% Renal function: slightly worse than baseline IBW= 50.1 kg, ABW= 78.6 kg 156% of IBW, AdjBW= Will dose patient's vancomycin based on a djusted BW which is 61.5 kg Plan: 1. Vancomycin load of 1000 mg (~16 mg/kg ABW) IVPB x 1 given on 10/03/15 @ 0848, followed by maintenance vancomycin 1000 mg IVPB q24h based on renal function. 2. Vancomycin level ordered for 10/05/2015 @ 0800 (draw 60 minutes prior to hanging the 3rd d ose) - resulted subtherapeutic. Pt is not yet at steady state, however will increase conserv atively at this time due to very subtherapeutic level and overall worsening of clinical pict ure. 3. Repeat vancomycin level scheduled for 10/07/15 @ 0930 (draw 60 minutes prior to hanging 3r d NEW dose) 4. Serum creatinine at least every 3 days while on vancomycin 5. Will monitor renal function, clinical status, infection markers daily with troughs and d ose adjustment as needed. References: IDSA guidelines Procalcitonin Algorithm Per P&T-approved Vancomycin Dosing and Monitoring Protocol Electronically signed by: Charity Nielson PHARMD 10/05/2015 10:05 Charity Ferrell PharmD - 10/04/19 16 3:19 PM PDT VANCOMYCIN PER PHARMACY PROTOCOL: Subjective/Objective: Thea Carmona is a 70 y.o. female admitted on 10/03/2015 for Dyspnea, cough, chest pa in, and fever. Patient is receiving vancomycin starting on 10/03/2015 for possible pneumonia. Patient has a past medical history of COPD (chronic obstructive pulmonary disease) ([facility]); S pondylolisthesis of cervical region; Spinal stenosis; Osteoporosis; Depression; Pneumonia (2 009); Rheumatoid arthritis(714.0) ([facility]); Hyperlipidemia; Hypertension; Hypothyroidism; GERD (gastroesophageal reflux disease); Stroke ([facility]) (2006); Stroke ([facility]) (2007); Squamous cell c arcinoma of lung ([facility]) (07/2013); Sputum culture positive for Scopulariopsis species; 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 Allergies Review of patient's allergies indicates no known allergies. Historical Vancomycin dosing (previous & current encounter): none Admission Wt: Weight: 81.6 kg (179 lb 14.3 oz) Current Wt: Weight: 79.1 kg (174 lb 6.1 oz) Min/Max Temp past 24 hours:Temp Av.4 C (97.6 F) Min: 36.2 C (97.2 F) Max: 3 6.6 C (97.9 F) Estimated Creatinine Clearance: 55 mL/min (based on Cr of 0.92). Intake/Output Summary (Last 24 hours) at 10/04/15 1519 Last data filed at 10/04/15 1300 Gross per 24 hour Intake 1400 ml Output 600 ml Net 800 ml Temp: [36.2 C (97.2 F)-36.6 C (97.9 F)] 36.4 C (97.5 F) Pulse: [67-80] 74 Resp: [16-20] 18 BP: (109-116)/(57-76) 114/68 mmHg Vitals with Comments 10/04/2015 10/04/2015 10/04/2015 10/04/2015 SYSTOLIC - - - 114 DIASTOLIC - - - 68 Pulse 76 80 76 74 Temp - - - 97.5 Resp 16 16 16 18 Weight - 174 lbs 6 oz - - Height - - - - SPO2 97 92 92 92 SPO2 Comments - - - - BMI - - - - Pain Score - - - - Pain Score - - - - Pain Loc - - - - Pain Loc - - - - Pain Edu? - - - - Other antibiotics: Zosyn 4.5 g x1 followed by 3.375 g q8h Micro/Cultures/Diagnostics: Microbiology Results (Last 14 Days by Collected Date with Culture/Sensitivity) Procedure Component Value Units Date/Time Culture, Respiratory, Lower, Smear [[id number]] Collected: 10/03/15 1756 Order Status: Completed Lab Status: Preliminary result Updated: 10/04/15 0723 Specimen Information: Respiratory / Sputum, expectorated Culture Culture in progress... 1+ Usual Respiratory Aline Gram Stain Result 3+ White Blood Cells 2+ Epithelial cells 1+ Gram positive cocci Culture, Blood [[id number]] Collected: 10/03/15 1459 Order Status: Completed Lab Status: Preliminary result Updated: 10/04/15 031 Specimen Information: Blood / Peripheral Blood Culture Result: No growth: Monitored continually by instrument for 5 days Culture, Blood [[id number]] Collected: 10/03/15 1448 Order Status: Completed Lab Status: Preliminary result Updated: 10/04/15310 Specimen Information: Blood / Peripheral Blood Culture Result: No growth: Monitored continually by instrument for 5 days Culture, Blood [[id number]] Order Status: Canceled Lab Status: No result Specimen Information: Blood / Peripheral Blood Culture, Urine [[id number]] Collected: 10/03/15 0543 Order Status: Completed Lab Status: Preliminary result Updated: 10/04/15 0714 Specimen Information: Urine / Urine, clean catch Culture No growth to date Culture, MRSA [[id number]] Collected: 10/03/15 0449 Order Status: Completed Lab Status: Final result Updated: 10/04/15 0755 Specimen Information: Respiratory / Nares Culture Negative for MRSA by chromogenic agar method UA: moderate blood, 5-10 RBC, 5-10 squamous epi cells, few budding yeasts, bacteria (-) Recent Labs Lab 10/04/15 0447 10/03/15 0548 WBC 12.4* 16.4* CREA 0.92 1.00 Imagin10/04/15 CXR: 1. SLIGHTLY MORE PRONOUNCED HAZY RETICULAR OPACITY AT THE RIGHT BASE, POSSIBL Y REFLECTING ATELECTASIS, SCAR OR EARLY INFILTRATE. 2. OTHERWISE STABLE APPEARANCE OF THE CHEST, WITH PLATELIKE RIGHT RETROHILAR OPACITY FAVORING THERAPY RELATED ATELECTASIS/SCAR, AN D PROBABLE RIGHT BASILAR PLEURAL PARENCHYMAL SCAR. 03/28/15 CT Chest: Findings consistent with a response to therapy and associated changes in the adjacent lung. No findings to suggest disease progression. Density and heterogeneity of the marrow, in particular in the vertebral bodies, is likely chemotherapy related. Interval development of a mild superior endplate deformity of T7. This appears to be subacute. Stabl e dilated biliary ducts. Date 10/02 10/03 Time of Vanco level -- -- Vancomycin level -- -- Serum Creatinine 1.00 0.92 CrCl (mL/min) 51 54 Vanco load/bolus 1000 mg Vanco dose - current -- 1000 mg q24hr Vanco dose - new 1000 mg q24hr same Assessment: Vancomycin and Zosyn Day # 2 Target Trough: 15-20 mcg/ml for possible pneumonia Patient has a hx of COPD and lung CAwho presents with 2 day history ofincreasing dys pnea, wheezing, right-sided chest pain, productive cough, and fever. Transfer from [place] . She had SCC right lung with RLL lobectomy 08/2013, XRT and CMT for recurrence 07/2014. Most recently treated with Opdvio completing 6 cycles on 09/12/2015. Opdivo may cause pulmonary to xicity. She reports 3 rounds of ABX in recent weeks (Received doxycycline 100 mg twice daily for 10 days on 09/07/15. Unsure what other 2 antibiotic courses were). Also chronically on pr ednisone for RA. 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 Patient is at risk for recurrent aspiration due to large doses of dilaudid at home. WBC: 12.4; Renal: SCr 0.92 (baseline SCr 0.8) and CrCl 54 mL/min; Temp: 36.4 (97.5F); Cu lture: Resp and urine cx pending, resp now has 1+ GPC, urine NGTD; VS: fairly stable, on julieta m air O2 sats 92% Renal function: slightly worse than baseline IBW= 50.1 kg, ABW= 78.6 kg 156% of IBW, AdjBW= Will dose patient's vancomycin based on a djusted BW which is 61.5 kg Plan: 1. Vancomycin load of 1000 mg (~16 mg/kg ABW) IVPB x 1 given on 10/03/15 @ 0848, followed by maintenance vancomycin 1000 mg IVPB q24h based on renal function. 2. Vancomycin level ordered for 10/05/2015 @ 0800 (draw 60 minutes prior to hanging the 3rd d ose). Vancomycin trough ordered for 10/06/2015 @ 0800 (draw 60 minutes prior to hanging the 4t h dose). 3. Serum creatinine at least every 3 days while on vancomycin 4. Will monitor renal function, clinical status, infection markers daily with troughs and d ose adjustment as needed. References: IDSA guidelines Procalcitonin Algorithm Per P&T-approved Vancomycin Dosing and Monitoring Protocol Electronically signed by: Charity Nielson PHARMD 10/04/2015 15:19 Bony Goldstein MD - 10/04/2015 10: 04 AM PDT HOSPITALIST PROGRESS NOTE on 10/04/2015 [facility] Pt. Name/Age/: Thea Carmona 70 y.o. 1945 Med. Record Number: [id number] Primary Care Physician: Davis Ivan MD Date of admission: 10/03/2015 Hospital Day: 2 ASSESSMENT AND PLAN: CHIEF PROBLEMS: Principal Problem: CAP (community acquired pneumonia) Active Problems: COPD (chronic obstructive pulmonary disease) Recurrent squamous cell carcinoma of lung Code Status: Full Code PLAN Same. Disposition: Home. Brief Summary Hospitalization: 70 yo WF with SCC of right lung, with recurrence, on chemo who has had persistent cough, l ow grade fever, and SOB for the last few weeks. Came to ER in [place] and was sent here for pneumonia. Sees Dr. Park and Dr. Taylor. Placed on steroids and antibioti cs as well as aggressive RT. Last chest CT six months ago here. With her rather large do ses of dilaudid at home, we need to keep in mind the possibility of recurrent aspiration, so I do agree that zosyn is indicated. CXR suggests infiltrate in right base this morning. DISCUSSION: SUBJECTIVE: The patient chart and medications were reviewed and the patient was seen and examined. No new complaints. OBJECTIVE: Vitals: Temp: 36.5 C (97.7 F) BP: 116/76 mmHg Pulse: 76 Resp: 16 SpO2: 97 % O2 Min/Max Temp past 24 hours: Temp Av.5 C (97.7 F) Min: 36.2 C (97.2 F) Max: 36.8 C (98.2 F) Intake/Output Summary (Last 24 hours) at 10/04/15 1005 Last data filed at 10/04/15 0900 Gross per 24 hour Intake 2360 ml Output 1050 ml Net 1310 ml Wt. Admission: Weight: 81.6 kg (179 lb 14.3 oz) Wt. Current: Weight: 78.6 kg (173 lb 4. 5 oz) Physical Examination: Constitutional: No acute distress, non-toxic appearance Eyes: conjunctiva normal. PERRL HEENT: Supple, normal ROM and without adenopathy. Oropharynx moist, no pharyngeal exudate s. Respiratory: Much wheezing persists. Cardiovascular: Normal rate, normal rhythm, no murmurs, no gallops, no rubs. GI: Soft, nondistended, normal bowel sounds, nontender, no organomegaly, no mass, no rebou nd, no guarding Diagnostic Studies: Radiology: Available data and images were reviewed personally. Xr Chest Pa And Lateral 10/04/2015 PA AND LATERAL CHEST 10/04/2015 6:41 AM CLINICAL HISTORY: pneumonia, lung cancer COMPARISON: Chest CT March 2015, chest radiograph August 2014 and multiple previous radiog raphs FINDINGS: The implanted left internal jugular port catheter again extends to the leve l of the mid SVC. The cardiomediastinal silhouette is otherwise unremarkable. There is sim ilar bandlike right retrohilar opacity and surgical clips again project within the right hil um, corresponding with changes of right lower lobectomy visible on previous CT. There is st able tenting of the right lower mediastinal border and blunting of the right lateral costoph renic angle. Mild hazy reticular opacity at the right base is slightly more pronounced, whi le there is stable hazy opacity at the anterior left base, corresponding with epicardial fat visible on previous CT. The lungs are clear elsewhere, and no pneumothorax or definite ple ural effusion is visible. Cholecystectomy clips are again suggested. Anterior and posterio r fusion hardware again projects over the imaged cervical spine. There is stable mild compr ession deformity of a mid thoracic vertebral body. Truncation of the distal right clavicle is chronic. IMPRESSION - 1. SLIGHTLY MORE PRONOUNCED HAZY RETICULAR OPACITY AT THE RIGHT BASE, POSSIBLY REFLECTING ATELECTASIS, SCAR OR EARLY INFILTRATE. 2. OTHERWISE STABLE APPE ARANCE OF THE CHEST, WITH PLATELIKE RIGHT RETROHILAR OPACITY FAVORING THERAPY RELATED ATELEC TASIS/SCAR, AND PROBABLE RIGHT BASILAR PLEURAL PARENCHYMAL SCAR. Dictated and Signed by: Flaca Lvei MD Electronically signed: 10/04/2015 9:02 AM Selected Labs/Studies: Recent Labs Lab 10/04/1544610/03/15 0535 WBC 12.4* 16.4* HGB 11.3* 12.4 HCT 35.4 39.0 PLT 194 198 Recent Labs Lab 10/04/1544610/03/15 0535 NA 139 137 K 3.8 3.6 CL 106 103 CO2 26 26 BUN 15 9 CREA 0.92 1.00 CALCIUM 7.9* 8.1* ALBUMIN -- 2.7* BILITOT -- 0.7 ALT -- 23 AST -- 29 ALKPHOS -- 57 No results for input(s): PHART, PO2ART, AEW9ZPS, L2JMJTSM, BEART in the last 168 hours. No results for input(s): TROPONINT, BNP in the last 168 hours. Invalid input(s): CKTOTAL, TROPONINI, CKMBINDEX Recent Labs Lab 10/03/15 0535 INR 1.03 No results found for: POCGLU Micro results last 72hrs: Microbiology Results (72 hrs) Procedure Component Value Units Date/Time Culture, Respiratory, Lower, Smear [[id number]] Collected: 10/03/15 1756 Order Status: Completed Lab Status: Preliminary result Updated: 10/04/15 0216 Specimen Information: Respiratory / Sputum, expectorated Culture Culture in progress... 1+ Usual Respiratory Aline Gram Stain Result 3+ White Blood Cells 2+ Epithelial cells 1+ Gram positive cocci Culture, Blood [[id number]] Collected: 10/03/15 1459 Order Status: Completed Lab Status: Preliminary result Updated: 10/04/15310 Specimen Information: Blood / Peripheral Blood Culture Result: No growth: Monitored continually by instrument for 5 days Culture, Blood [[id number]] Collected: 10/03/15 1448 Order Status: Completed Lab Status: Preliminary result Updated: 10/04/15310 Specimen Information: Blood / Peripheral Blood Culture Result: No growth: Monitored continually by instrument for 5 days Culture, Urine [[id number]] Collected: 10/03/15 0543 Order Status: Completed Lab Status: Preliminary result Updated: 10/04/15 0714 Specimen Information: Urine / Urine, clean catch Culture No growth to date Culture, MRSA [[id number]] Collected: 10/03/15 0449 Order Status: Completed Lab Status: Final result Updated: 10/04/15 0755 Specimen Information: Respiratory / Nares Culture Negative for MRSA by chromogenic agar method MEDICATIONS: SCHEDULED PRN albuterol-ipratropium 3 mL Nebulization RT 4x DAILY aspirin 81 mg Oral Daily budesonide 0.5 mg Nebulization RT BID clopidogrel 75 mg Oral Daily enoxaparin (LOVENOX) injection 40 mg Subcutaneous Daily levothyroxine 75 mcg Oral QAM AC pantoprazole 40 mg Oral BID AC pharmacy to dose vancomycin Other Pharmacy Consult piperacillin-tazobactam 3.375 g Intravenous Q8H predniSONE 40 mg Oral Daily vancomycin IV 1 g Intravenous Q24H venlafaxine 37.5 mg Oral BID albuterol, aluminum & magnesium hydroxide-simethicone, bisacodyl, HYDROmorphone, HYDROmor phone, LORazepam, [START ON 10/05/2015] magnesium hydroxide, ondansetron OR ondansetron DVT Prophylaxis Lovenox [facility] Documentation I expect this patient will be hospitalized for greater than 2-midnights and expect the post -hospital plan to be discharge to home or to an adult foster home. Electronically signed by: Bony Hernandez MD, 10/04/2015 10:05 [facility] Portions of this chart may have been created withZelgor voice recognition software. Occas ional wrong-word or sound-alike substitutions may have occurred due to the inherent li mitations of voice recognition software. Please read the chart carefully and recognize, usin g context, where these substitutions have occurred. t. Murray Valdez, PharmD - 10/03/2015 9:55 AM PDTFormatting of this note might be different from the origina l. VANCOMYCIN PER PHARMACY PROTOCOL: Subjective/Objective: Thea Carmona is a 70 y.o. female admitted on 10/03/2015 for Dyspnea, cough, chest pa in, and fever. Patient is receiving vancomycin starting on 10/03/2015 for possible pneumonia. Patient has a past medical history of COPD (chronic obstructive pulmonary disease) ([facility]); S pondylolisthesis of cervical region; Spinal stenosis; Osteoporosis; Depression; Pneumonia (2 009); Rheumatoid arthritis(714.0) ([facility]); Hyperlipidemia; Hypertension; Hypothyroidism; GERD (gastroesophageal reflux disease); Stroke ([facility]) (2006); Stroke ([facility]) (2007); Squamous cell c arcinoma of lung ([facility]) (07/2013); Sputum culture positive for Scopulariopsis species; 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 Allergies Review of patient's allergies indicates no known allergies. Historical Vancomycin dosing (previous & current encounter): none Admission Wt: Weight: 81.6 kg (179 lb 14.3 oz) Current Wt: Weight: 81.6 kg (179 lb 14.3 oz) Min/Max Temp past 24 hours:Temp Av C (98.6 F) Min: 36.8 C (98.2 F) Max: 37. 2 C (99 F) Estimated Creatinine Clearance: 51 mL/min (based on Cr of 1). Intake/Output Summary (Last 24 hours) at 10/03/15 0957 Last data filed at 10/03/15 0800 Gross per 24 hour Intake 500 ml Output 450 ml Net 50 ml Temp: [36.8 C (98.2 F)-37.2 C (99 F)] 37.2 C (99 F) Pulse: [83-91] 86 Resp: [17-20] 18 BP: (106-117)/(58-63) 106/58 mmHg Vitals with Comments 10/03/2015 10/03/2015 10/03/2015 10/03/2015 SYSTOLIC - 106 - - DIASTOLIC - 58 - - Pulse 86 83 88 86 Temp - 99 - - Resp 20 17 18 18 Weight - - - - Height - - - - SPO2 97 96 95 96 SPO2 Comments - - - - BMI - - - - Pain Score - - - - Pain Score - - - - Pain Loc - - - - Pain Loc - - - - Pain Edu? - - - - Other antibiotics: Zosyn 4.5 g x1 followed by 3.375 g q8h Micro/Cultures/Diagnostics: Microbiology Results (Last 14 Days by Collected Date with Culture/Sensitivity) Procedure Component Value Units Date/Time Culture, Respiratory, Lower, Smear [[id number]] Order Status: Sent Lab Status: No result Specimen Information: Respiratory / Sputum, expectorated Culture, Urine [[id number]] Collected: 10/03/15 0543 Order Status: Resulted Lab Status: In process Updated: 10/03/15 0616 Specimen Information: Urine / Urine, clean catch Culture, MRSA [[id number]] Collected: 10/03/15 0449 Order Status: Sent Lab Status: In process Updated: 10/03/15 0518 Specimen Information: Respiratory / Nares UA: moderate blood, 5-10 RBC, 5-10 squamous epi cells, few budding yeasts, bacteria (-) Recent Labs Lab 10/03/15 0535 WBC 16.4* CREA 1.00 Imaging: None currently 03/28/15 CT Chest: Findings consistent with a response to therapy and associated changes in the adjacent lung. No findings to suggest disease progression. Density and heterogeneity of the marrow, in particular in the vertebral bodies, is likely chemotherapy related. Interval development of a mild superior endplate deformity of T7. This appears to be subacute. Stabl e dilated biliary ducts. Date 10/02 Time of Vanco level -- Vancomycin level -- Serum Creatinine 1.00 CrCl (mL/min) 51 Vanco load/bolus 1000 mg Vanco dose - current -- Vanco dose - new 1000 mg q24hr Assessment: Vancomycin and Zosyn Day # 1 Target Trough: 15-20 mcg/ml for possible pneumonia Patient has a hx of COPD and lung CAwho presents with 2 day history ofincreasing dys pnea, wheezing, right-sided chest pain, productive cough, and fever. Transfer from [place] . She had SCC right lung with RLL lobectomy 08/2013, XRT and CMT for recurrence 07/2014. Most recently treated with Opdvio completing 6 cycles on 09/12/2015. Opdivo may cause pulmonary to xicity. She reports 3 rounds of ABX in recent weeks (Received doxycyclie 100 mg twice daily for 10 days on 09/07/15. Unsure what other 2 antibiotic courses were). Also chronically on pre dnisone for RA. 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 Patient is at risk for recurrent aspiration due to large doses of dilaudid at home. WBC: 16.4; Renal: SCr 1.00 (baseline SCr 0.8) and CrCl 51 mL/min; Temp: 37.2; Culture: R perez and urine cx pending; VS: fairly stable, on 2 L O2 NC Renal function: worse than baseline Will dose patient's vancomycin based on adjusted BW which is 62.7 kg Plan: 1. Vancomycin load of 1000 mg (~16 mg/kg ABW) IVPB x 1 given on 10/03/15 @ 0848, followed by maintenance vancomycin 1000 mg IVPB q24h based on renal function. 2. Vancomycin level ordered for 10/05/2015 @ 0800 (draw 60 minutes prior to hanging the 3rd d ose). Vancomycin trough ordered for 10/06/2015 @ 0800 (draw 60 minutes prior to hanging the 4t h dose). 3. Serum creatinine at least every 3 days while on vancomycin 4. Will monitor renal function, clinical status, infection markers daily with troughs and d ose adjustment as needed. References: IDSA guidelines Procalcitonin Algorithm Per P&T-approved Vancomycin Dosing and Monitoring Protocol Electronically signed by: Murray Castro PHARMD 10/03/2015 9:57 Bony Goldstein MD - 10/03/2015 8:17 AM PDT HOSPITALIST PROGRESS NOTE on 10/03/2015 [facility] Pt. Name/Age/: Thea Carmona 70 y.o. 1945 Med. Record Number: [id number] Primary Care Physician: Davis Ivan MD Date of admission: 10/03/2015 Hospital Day: 1 ASSESSMENT AND PLAN: CHIEF PROBLEMS: Principal Problem: CAP (community acquired pneumonia) Active Problems: COPD (chronic obstructive pulmonary disease) Recurrent squamous cell carcinoma of lung Code Status: Full Code PLAN Add vancomycin. Disposition: Home. Brief Summary Hospitalization: 70 yo WF with SCC of right lung, with recurrence, on chemo who has had persistent cough, l ow grade fever, and SOB for the last few weeks. Came to ER in [place] and was sent here f or pneumonia. Sees Dr. Park and Dr. Taylor. Placed on steroids and antibiotics as well as aggressive RT. No better this morning. Takes 8 mg dilaudid every 3 hours at [facility]. 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 Last chest CT six months ago here. With her rather large doses of dilaudid at [facility], we need to keep in mind the possibility of recurrent aspiration, so I do agree that zosyn is indicated. DISCUSSION: Will continue present course next 24 hours and recheck CXR and labs. If no better, or wor se, then I'll consider repeating CT. In the meantime, we'll look at her sputum for fungus. SUBJECTIVE: The patient chart and medications were reviewed and the patient was seen and examined. No better. OBJECTIVE: Vitals: Temp: 37.2 C (99 F) BP: 106/58 mmHg Pulse: 83 Resp: 17 SpO2: 96 % O2 Min/Max Temp past 24 hours: Temp Av C (98.6 F) Min: 36.8 C (98.2 F) Max: 37 .2 C (99 F) Intake/Output Summary (Last 24 hours) at 10/03/15 0819 Last data filed at 10/03/15 0800 Gross per 24 hour Intake 500 ml Output 450 ml Net 50 ml Wt. Admission: Weight: 81.6 kg (179 lb 14.3 oz) Wt. Current: Weight: 81.6 kg (179 lb 14 .3 oz) Physical Examination: Constitutional: No acute distress, non-toxic appearance Eyes: conjunctiva normal. PERRL HEENT: Supple, normal ROM and without adenopathy. Oropharynx moist, no pharyngeal exudate s. Respiratory: Mild respiratory distress, lots of wheezing and coarse rhonchi in right lung. Left is distant, but fairly clear. Cardiovascular: Normal rate, normal rhythm, no murmurs, no gallops, no rubs. GI: Soft, nondistended, normal bowel sounds, nontender, no organomegaly, no mass, no rebou nd, no guarding Diagnostic Studies: Radiology: Available data and images were reviewed personally. No results found. Selected Labs/Studies: Recent Labs Lab 10/03/15 0535 WBC 16.4* HGB 12.4 HCT 39.0 PLT 198 Recent Labs Lab 10/03/15 0535 NA 137 K 3.6 CL 103 CO2 26 BUN 9 CREA 1.00 CALCIUM 8.1* ALBUMIN 2.7* BILITOT 0.7 ALT 23 AST 29 ALKPHOS 57 No results for input(s): PHART, PO2ART, UXB8FCI, L2IIHNKR, BEART in the last 168 hours. No results for input(s): TROPONINT, BNP in the last 168 hours. Invalid input(s): CKTOTAL, TROPONINI, CKMBINDEX Recent Labs Lab 10/03/15 0535 INR 1.03 No results found for: POCGLU Micro results last 72hrs: Microbiology Results (72 hrs) Procedure Component Value Units Date/Time Culture, Urine [[id number]] Collected: 10/03/15 0543 Order Status: Resulted Lab Status: In process Updated: 10/03/1516 Specimen Information: Urine / Urine, clean catch Culture, MRSA [[id number]] Collected: 10/03/15 0449 Order Status: Sent Lab Status: In process Updated: 10/03/1518 Specimen Information: Respiratory / Nares MEDICATIONS: SCHEDULED PRN albuterol-ipratropium 3 mL Nebulization RT 4x DAILY aspirin 81 mg Oral Daily budesonide 0.5 mg Nebulization RT BID clopidogrel 75 mg Oral Daily enoxaparin (LOVENOX) injection 40 mg Subcutaneous Daily levothyroxine 75 mcg Oral QAM AC pantoprazole 40 mg Oral BID AC pharmacy to dose vancomycin Other Pharmacy Consult piperacillin-tazobactam 3.375 g Intravenous Q8H predniSONE 40 mg Oral Daily venlafaxine 37.5 mg Oral BID albuterol, aluminum & magnesium hydroxide-simethicone, bisacodyl, HYDROmorphone, HYDROmor phone, LORazepam, [START ON 10/05/2015] magnesium hydroxide, ondansetron OR ondansetron DVT Prophylaxis Lovenox [facility] Documentation I expect this patient will be hospitalized for greater than 2-midnights and expect the post -hospital plan to be discharge to home or to an adult foster home. Electronically signed by: Bony Hernandez MD, 10/03/2015 8:19 [facility] Portions of this chart may have been created withZelgor voice recognition software. Occas ional wrong-word or sound-alike substitutions may have occurred due to the inherent li mitations of voice recognition software. Please read the chart carefully and recognize, usin g context, where these substitutions have occurred. documented in this encounter Plan of Treatment +--------+ + + + + | Date | Type | Specialty | Care Team | Description | +--------+ + + + + | 05/30/ | Office | Rheumatology | Santosh Sumner, | | | 2018 | Visit | | [address] | | | | | | [facility] | | | | | | [place] [address] | | | | | | [phone] | | | | | | | | +--------+ + + + + | 06/08/ | Office | Physical Medicine | Rocky Santos, | | | 2019 | Visit | and Rehabilitation | MD [address] | | | | | | [place] | | | | | | [address] | | | | | | | | +--------+ + + + + | 06/16/ | Appointment | Pulmonology | Eveline Jaffe | | | 2019 | | | MD [address] | | | | | | [address] | | | | | | [place] [address] | | | | | | [phone] | | | | | | | | +--------+ + + + + | 06/16/ | Office | Pulmonology | Eveline Jaffe | | | 2019 | Visit | | MD [address] | | | | | | [address] | | | | | | [place] [address] | | | | | | [phone] | | | | | | | | +--------+ + + + + | 08/24/ | Office | Cardiology | Ainsha Lopez DO | | | 2019 | Visit | | [address] | | | | | | [place] | | | | | | [address] | | | | | | | | +--------+ + + + + documented as of this encounter Procedures + +--------+ + + + | Procedure Name | Priori | Date/Time | Associated Diagnosis | Comments | | | ty | | | | + +--------+ + + + | VANCOMYCIN LEVEL | Timed | 10/05/2015 | | Results for this | | | | 8:06 AM | | procedure are in the | | | | PDT | | results section. | + +--------+ + + + | XR CHEST PA AND | Routin | 10/04/2015 | | Results for this | | LATERAL | e | 7:01 AM | | procedure are in the | | | | PDT | | results section. | + +--------+ + + + | CBC WITH | Routin | 10/04/2015 | | Results for this | | DIFFERENTIAL | e | 4:47 AM | | procedure are in the | | | | PDT | | results section. | + +--------+ + + + | BASIC METABOLIC | Routin | 10/04/2015 | | Results for this | | PANEL | e | 4:47 AM | | procedure are in the | | | | PDT | | results section. | + +--------+ + + + | CULTURE, | Routin | 10/03/2015 | | Results for this | | RESPIRATORY, LOWER, | e | 5:56 PM | | procedure are in the | | SMEAR | | PDT | | results section. | + +--------+ + + + | CULTURE, BLOOD | Routin | 10/03/2015 | | Results for this | | | e | 2:59 PM | | procedure are in the | | | | PDT | | results section. | + +--------+ + + + | CULTURE, BLOOD | Routin | 10/03/2015 | | Results for this | | | e | 2:48 PM | | procedure are in the | | | | PDT | | results section. | + +--------+ + + + | RESPIRATORY THERAPY | Routin | 10/03/2015 | | | | COMMUNICATION | e | 8:54 AM | | | | | | PDT | | | + +--------+ + + + | URINALYSIS WITH | Routin | 10/03/2015 | | Results for this | | MICROSCOPIC WITH | e | 5:43 AM | | procedure are in the | | CULTURE IF INDICATED | | PDT | | results section. | + +--------+ + + + | CULTURE, URINE | Routin | 10/03/2015 | | Results for this | | | e | 5:43 AM | | procedure are in the | | | | PDT | | results section. | + +--------+ + + + | PROTIME INR | Routin | 10/03/2015 | | Results for this | | | e | 5:35 AM | | procedure are in the | | | | PDT | | results section. | + +--------+ + + + | CBC WITH | Routin | 10/03/2015 | | Results for this | | DIFFERENTIAL | e | 5:35 AM | | procedure are in the | | | | PDT | | results section. | + +--------+ + + + | MAGNESIUM | Routin | 10/03/2015 | | Results for this | | | e | 5:35 AM | | procedure are in the | | | | PDT | | results section. | + +--------+ + + + | COMPREHENSIVE | Routin | 10/03/2015 | | Results for this | | METABOLIC PANEL | e | 5:35 AM | | procedure are in the | | | | PDT | | results section. | + +--------+ + + + | CULTURE, MRSA | Routin | 10/03/2015 | | Results for this | | | e | 4:49 AM | | procedure are in the | | | | PDT | | results section. | + +--------+ + + + documented in this encounter Results Vancomycin Level (10/05/2015 8:06 AM PDT) + +-------+ + + + [...] +-------+ + + + | Vancomycin | 7.6 | <=20.0 ug/mL | [facility] | | | [facility] | | | [facility] | | [...] ST. | [address] | [place] | [phone] | | [facility] | | [address] | | | - LABORATORY | | | | + + + + + XR Chest PA and Lateral (10/04/2015 7:01 AM PDT) + + | Specimen | + + | | + + + + + | Narrative | Performed At | + + + | PA AND LATERAL CHEST 10/04/2015 6:41 AM CLINICAL HISTORY: | [facility] | | pneumonia, lung cancer COMPARISON: Chest CT March 2015, chest | | | radiograph August 2014 and multiple previous radiographs FINDINGS: | | | The implanted left internal jugular port catheter again extends to | | | the level of the mid SVC. The cardiomediastinal silhouette is | | | otherwise unremarkable. There is similar bandlike right retrohilar | | | opacity and surgical clips again project within the right hilum, | | | corresponding with changes of right lower lobectomy visible on | | | previous CT. There is stable tenting of the right lower mediastinal | | | border and blunting of the right lateral costophrenic angle. Mild | | | hazy reticular opacity at the right base is slightly more pronounced, | | | while there is stable hazy opacity at the anterior left base, | | | corresponding with epicardial fat visible on previous CT. The lungs | | | are clear elsewhere, and no pneumothorax or definite pleural | | | effusion is visible. Cholecystectomy clips are again suggested. | | | Anterior and posterior fusion hardware again projects over the | | | imaged cervical spine. There is stable mild compression deformity of | | | a mid thoracic vertebral body. Truncation of the distal right | | | clavicle is chronic. IMPRESSION - 1. SLIGHTLY MORE | | | PRONOUNCED HAZY RETICULAR OPACITY AT THE RIGHT BASE, POSSIBLY | | | REFLECTING ATELECTASIS, SCAR OR EARLY INFILTRATE. 2. OTHERWISE | | | STABLE APPEARANCE OF THE CHEST, WITH PLATELIKE RIGHT RETROHILAR | | | OPACITY FAVORING THERAPY RELATED ATELECTASIS/SCAR, AND PROBABLE RIGHT | | | BASILAR PLEURAL PARENCHYMAL SCAR. Dictated and Signed by: Herminio | | | MD Gurmeet Electronically signed: 10/04/2015 9:02 AM | | + + + + + | Procedure Note | + + | Fabián, Rad Results In - 10/04/2015 9:06 AM PDT PA AND LATERAL CHEST 10/04/2015 6:41 AM | | | | CLINICAL HISTORY: pneumonia, lung cancer | | | | COMPARISON: Chest CT March 2015, chest radiograph August 2014 and multiple | | previous radiographs | | | | FINDINGS: The implanted left internal jugular port catheter again extends to the | | level of the mid SVC. The cardiomediastinal silhouette is otherwise | | unremarkable. There is similar bandlike right retrohilar opacity and surgical | | clips again project within the right hilum, corresponding with changes of right | | lower lobectomy visible on previous CT. There is stable tenting of the right | | lower mediastinal border and blunting of the right lateral costophrenic angle. | | Mild hazy reticular opacity at the right base is slightly more pronounced, while | | there is stable hazy opacity at the anterior left base, corresponding with | | epicardial fat visible on previous CT. The lungs are clear elsewhere, and no | | pneumothorax or definite pleural effusion is visible. Cholecystectomy clips are | | again suggested. Anterior and posterior fusion hardware again projects over the | | imaged cervical spine. There is stable mild compression deformity of a mid | | thoracic vertebral body. Truncation of the distal right clavicle is chronic. | | | | IMPRESSION - | | | | 1. SLIGHTLY MORE PRONOUNCED HAZY RETICULAR OPACITY AT THE RIGHT BASE, POSSIBLY | | REFLECTING ATELECTASIS, SCAR OR EARLY INFILTRATE. | | | | 2. OTHERWISE STABLE APPEARANCE OF THE CHEST, WITH PLATELIKE RIGHT RETROHILAR | | OPACITY FAVORING THERAPY RELATED ATELECTASIS/SCAR, AND PROBABLE RIGHT BASILAR | | PLEURAL PARENCHYMAL SCAR. | | | | Dictated and Signed by: Herminio Levi MD | | Electronically signed: 10/04/2015 9:02 AM | + + + +---------+ + + | Performing | Address | City/State/Zipcode | Phone Number | | Organization | | | | + +---------+ + + | [facility] | | | | + +---------+ + + Basic Metabolic Panel (10/04/2015 4:47 AM PDT) + + + + + [...] + + + + | Glucose | 122 (H) | 70 - 109 mg/dL | [facility] | | | | | | [facility] | | | | | | MEDICAL | | | | | | CENTER - | | | | | | LABORATORY | | + + + + + + | BUN | 15 | 7 - 18 mg/dL | [facility] | | | | | | [facility] | | | | | | MEDICAL | | | | | | CENTER - | | | | | | LABORATORY | | + + + + + + | Creatinine | 0.92 | 0.60 - 1.30 | [facility] | | | | | mg/dL | [facility] | | | | | | MEDICAL | | | | | | CENTER - | | | | | | LABORATORY | | + + + + + + | eGFR if not | 60Comment: GLOMERULAR | >=60 | [facility] | | | | FILTRATION | mL/min/1.73m2 | [facility] | | | BENINESE | RATE,ESTIMATED | | MEDICAL | | | | mL/min/1.57s9[facility] than | | CENTER - | | [...] + + + + | Calcium | 7.9 (L) | 8.3 - 10.5 | [facility] | | | | | mg/dL | [facility] | | | | | | MEDICAL | | | | | | CENTER - | | | | | | LABORATORY | | + + + + + + | BUN/Creatin | 16.3 | | [facility] | | | ine [...] + | [facility] | [address] | [place] | [phone] | | [facility] | | [address] | | | - LABORATORY | | | | + + + + + CBC with Differential (10/04/2015 4:47 AM PDT) + + + + + + | Component | Value | Ref Range | Performed | Pathologist | | | | | At | Signature | + + + + + + | WBC | 12.4 (H) | 4.0 - 11.0 K/uL | [facility] | | | | | | [facility] | | | | | | MEDICAL | | | | | | CENTER - | | | | | | LABORATORY | | + + + + + + | RBC | 3.75 | 3.70 - 5.20 | [facility] | [...] + + + + | MCV | 94.4 | 83.0 - 101.0 fL | [facility] | | | | | | [facility] | | | | | | MEDICAL | | | | | | CENTER - | | | | | | LABORATORY | | + + + + + + | MCH | 30.1 | 28.0 - 35.0 pg | [facility] | | | | | | [facility] | | | | | | MEDICAL | | | | | | CENTER - | | | | | | LABORATORY | | + + + + + + | MCHC | 31.9 (L) | 32.0 - 36.0 | [facility] | | | | | g/dL | [facility] | | | | | | MEDICAL | | | | | | CENTER - | | | | | | LABORATORY | | + + + + + + | RDW-CV | 15.5 (H) | <15.0 % | [facility] | | | | | | [facility] | | | | | | MEDICAL | | | | | | CENTER - | | | | | | LABORATORY | | + + + + + + | Platelet | 194 | 140 - 440 K/uL | [facility] | | | Count | | | [facility] | | | | | | MEDICAL | | | | | | CENTER - | | | | | | LABORATORY | | + + + + + + | MPV | 7.7 | fL | [facility] | | | | | | [facility] | | | | | | MEDICAL | | | | | | CENTER - | | | | | | LABORATORY | | + + + + + + | % | 85.2 (H) | 45.0 - 82.0 % | [facility] | | | Neutrophils | | | [facility] | | | | | | MEDICAL | | | | | | CENTER - | | | | | | LABORATORY | | + + + + + + | % | 9.1 (L) | 20.0 - 45.0 % | [facility] | | | Lymphocytes | | | [facility] | | | | | | MEDICAL | | | | | | CENTER - | | | | | | LABORATORY | | + + + + + + | % Monocytes | 5.5 | 4.0 - 12.0 % | [facility] [...] + + + + | Absolute | 10.50 (H) | 1.80 - 8.50 | [facility] | | | Neutrophils | | K/uL | [facility] | | | | | | MEDICAL | | | | | | CENTER - | | | | | | LABORATORY | | + + + + + + | Absolute | 1.10 | 0.60 - 3.20 | [facility] | [...] [address] | [place] | [phone] | | [facility] | | [address] | | | - LABORATORY | | | | + + + + + Culture, Respiratory, Lower, Smear (10/03/2015 5:56 PM PDT) + + + + + + | Component | Value | Ref Range | Performed | Pathologist | | | | | At | Signature | + + + + + + | Culture | 2+ Usual Respiratory | | [facility] | | | | Aline | | [facility] | | | | | | [facility]ICAL | | | | | | CENTER - | | | | | | LABORATORY | | + + + + + + | Culture | 1+ Renee albicans | | [facility] | | | | | [facility] | | | | | | [facility]ICAL | | | | | | CENTER - | | | | | | LABORATORY | | + + + + + + | Gram Stain | 3+ White Blood Cells | | [facility] | | | Result | | | [facility] | | | | | | MEDICAL | | | | | | CENTER - | | | | | | LABORATORY | | + + + + + + | Gram Stain | 2+ Epithelial cells | | [facility] | | | Result | | | [facility] | | | | | | MEDICAL | | | | | | CENTER - | | | | | | LABORATORY | | + + + + + + | Gram Stain | 1+ Gram positive cocci | | [facility] | | | Result | | | [facility] | | | | | | MEDICAL | | | | | | CENTER - | | | | | | LABORATORY | | + + + + + + + + | Specimen | + + | Respiratory - | | Coughed sputum | | specimen (specimen) | + + + + + + + | Performing | Address | City/State/Zipcode | Phone Number | | Organization | | | | + + + + + | [facility] | [address] | [place] | [phone] | | [facility] | | [address] | | | - LABORATORY | | | | + + + + + Culture, Blood (10/03/2015 2:59 PM PDT) + + + + + + | Component | Value | Ref Range | Performed | Pathologist | | | | | At | Signature | + + + + + + | Culture | No Growth | | [facility] | | | | | [...] + | [facility] | [address] | [place] | [phone] | | [facility] | | [address] | | | - LABORATORY | | | | + + + + + Culture, Blood (10/03/2015 2:48 PM PDT) + + + + + + | Component | Value | Ref Range | Performed | Pathologist | | | | | At | Signature | + + + + + + | Culture | No Growth | | [facility] | | | | | [...] + | [facility] | [address] | [place], [place] | [phone] | | [facility] | | [address] | | | - LABORATORY | | | | + + + + + Culture, Urine (10/03/2015 5:43 AM PDT) + + + + + + | Component | Value | Ref Range | Performed | Pathologist | | | | | At | Signature | + + + + + + | Culture | 30,000 - 40,000 CFU/ml | | [facility] | | | | Mixed aline (multiple | | [facility] | | | | morphologies | | MEDICAL | | | | present)Comment: | | CENTER - | | | | Suggests contamination | | LABORATORY | | | | with urogenital or skin | | | | | | aline. | | | | + + + + + + + + | Specimen | + + | Urine - Urine | | specimen obtained by | | clean catch | | procedure (specimen) | + + + + + + + | Performing | Address | City/State/Zipcode | Phone Number | | Organization | | | | + + + + + | [facility] | [address] | [place] | [phone] | | [facility] | | [address] | | | - LABORATORY | | | | + + + + + Urinalysis with Microscopic with Culture if Indicated (10/03/2015 5:43 AM PDT) + + + + + + | Component | Value | Ref Range | Performed | Pathologist | | | | | At | Signature | + + + + + + | Color | Straw | Light Yellow, | [facility] | | | | | Yellow, Straw | [facility] | | | | | | MEDICAL | | | | | | CENTER - | | | | | | LABORATORY | | + + + + + + | Clarity | Clear | | [facility] | | | | | | [facility] | | | | | | MEDICAL | | | | | | CENTER - | | | | | | LABORATORY | | + + + + + + | pH, Urine | 6.0 | 5.0 - 8.0 | [facility] | | | | | | [facility] | | | | | | MEDICAL | | | | | | CENTER - | | | | | | LABORATORY | | + + + + + + | Specific | 1.004 | 1.001 - 1.030 | [facility] | | | Traphill | | | [facility] | | | | | | MEDICAL | | | | | | CENTER - | | | | | | LABORATORY | | + + + + + + | Protein, | Negative | Negative | [facility] | [...] + + + + | Ketones, | Negative | Negative | [facility] | [...] + + + + | Leukocyte | Negative | Negative | [facility] | [...] + + + | WBC UA | 0-2 | 0 - 2 /HPF | [facility] | | | | | | [facility] | | | | | | MEDICAL | | | | | | CENTER - | | | | | | LABORATORY | | + + + + + + | RBC UA | 5-10 (A) | 0 - 2 /HPF | [facility] | | | | | | [facility] | | | | | | MEDICAL | | | | | | CENTER - | | | | | | LABORATORY | | + + + + + + | SQUAMOUS | 5-10 (A) | 0 - 2 /LPF | [facility] | | | EPITHELIAL | | | [facility] | | | UA | | | MEDICAL | | | | | | CENTER - | | | | | | LABORATORY | | + + + + + + | BACTERIA UA | Negative | Negative /HPF | [facility] | | | | | | [facility] | | | | | | MEDICAL | | | | | | CENTER - | | | | | | LABORATORY | | + + + + + + | BUDDING | Few (A) | Negative | [facility] | | | YEAST UA | | | [facility] | | [...] Specimen | + + | Urine - Urine | | specimen obtained by | | clean catch | | procedure (specimen) | + + + + + + + | Performing | Address | City/State/Zipcode | Phone Number | | Organization | | | | + + + + + | [facility] | [address] | [place] | [phone] | | [facility] | | [address] | | | - LABORATORY | | | | + + + + + Protime INR (10/03/2015 5:35 AM PDT) + + + + + + | Component | Value | Ref Range | Performed | Pathologist | | | | | At | Signature | + + + + + + | Prothrombin | 14.0 (H) | 11.3 - 13.9 | [facility] | | | Time | | seconds | [facility] | | | | | | MEDICAL | | | | | | CENTER - | | | | | | LABORATORY | | + + + + + + | INR | 1.03Comment: Usual Oral | 0.90 - 1.10 | [facility] | | | | Anticoagulation [...] [address] | [place] | [phone] | | [facility] | | [address] | | | - LABORATORY | | | | + + + + + Magnesium (10/03/2015 5:35 AM PDT) + +-------+ + + + | Component | Value | Ref Range | Performed | Pathologist | | | | | At | Signature | + +-------+ + + + | Magnesium | 1.8 | 1.8 - 2.5 mg/dL | [facility] | | | | [...] + | [facility] | [address] | [place], [place] | [phone] | | [facility] | | [address] | | | - LABORATORY | | | | + + + + + Comprehensive Metabolic Panel (10/03/2015 5:35 AM PDT) + + + + + [...] + + | Glucose | 105 | 70 - 109 mg/dL | [facility] | | | | | | [facility] | | | | | | MEDICAL | | | | | | CENTER - | | | | | | LABORATORY | | + + + + + + | BUN | 9 | 7 - 18 mg/dL | [facility] | | [facility] | | | | | [facility] - | | | | | | LABORATORY | | + + + + + + | Creatinine | 1.00 | 0.60 - 1.30 | [facility] | | | | | mg/dL | [facility] | | | | | | [facility] | | | | | | [facility] - | | | | | | LABORATORY | | + + + + + + | eGFR if not | 55 (L)Comment: | >=60 | [facility] | | | | GLOMERULAR FILTRATION | mL/min/1.73m2 | [facility] | | | BENINESE | RATE,ESTIMATED | | MEDICAL | | | | mL/min/1.71h9Gbkb than | | CENTER - | | [...] + + + | Calcium | 8.1 (L) | 8.3 - 10.5 | [facility] | | | | | mg/dL | [facility] | | | | | | [facility] | | | | | | CENTER - | | | | | | LABORATORY | | + + + + + + | Albumin | 2.7 (L) | 3.2 - 5.0 g/dL | [facility] | | | | | | [facility] [...] + + + + | AST | 29 | 10 - 42 U/L | [facility] [...] + + | Globulin | 2.9 | 2.1 - 3.8 g/dL | [facility] | | [facility] | [facility] | | | | | | C[facility] - | | | | | | LABORATORY | | + + + + + + | Albumin/Mattie | 0.9 | 0.8 - 2.0 | [facility] | | | bulin Ratio | | | [facility] | [facility] | | | | | | CENTER - | | | | | | LABORATORY | | + + + + + + | BUN/Creatin | 9.0 | | [facility] | | | ine [...] [address] | [place] | [phone] | | [facility] | | [address] | | | - LABORATORY | | | | + + + + + CBC with Differential (10/03/2015 5:35 AM PDT) + + + + + + | Component | Value | Ref Range | Performed | Pathologist | | | | | At | Signature | + + + + + + | WBC | 16.4 (H) | 4.0 - 11.0 K/uL | [facility] | [facility] | | | | | | C[facility] - | | | | | | LABORATORY | | + + + + + + | RBC | 4.13 | 3.70 - 5.20 | [facility] | | | | | M/uL | [facility] | | [facility] | | | | | | CENTER - | | | | | | LABORATORY | | + + + + + + | Hemoglobin | 12.4 | 11.5 - 16.0 | [facility] | | | | | g/dL | [facility] | | | | | | CENTER - | | | | | | LABORATORY | | + + + + + + | Hematocrit | 39.0 | 34.0 - 47.0 % | [facility] | | | | | [facility] | | | | | | [facility] - | | | | | | LABORATORY | | + + + + + + | MCV | 94.4 | 83.0 - 101.0 fL | [facility] | [facility] | | [facility] | | [facility] - | | | | | | LABORATORY | | + + + + + + | MCH | 30.1 | 28.0 - 35.0 pg | [facility] | | | | | [facility] | [facility] | | | | | | C[facility] - | | | | | | LABORATORY | | + + + + + + | MCHC | 31.9 (L) | 32.0 - 36.0 | [facility] | | | | | g/dL | [facility] | [facility] | [facility] | | | | | | CENTER - | | | | | | LABORATORY | | + + + + + + | RDW-CV | 15.6 (H) | <15.0 % | [facility] | | | | [facility] | [facility] | | | | | | CENTER - | | | | | | LABORATORY | | + + + + + + | Platelet | 198 | 140 - 440 K/uL | [facility] [...] + + + + | % | 77.2 | 45.0 - 82.0 % | [facility] | | | Neutrophils | | | [facility] | [facility] | [facility] | | | | | | CENTER - | | | | | | LABORATORY | | + + + + + + | % | 13.6 (L) | 20.0 - 45.0 % | [facility] | | | Lymphocytes | | | [facility] | [facility] | [facility] | | | | | | CENTER - | | | | | | LABORATORY | | + + + + + + | % Monocytes | 8.0 | 4.0 - 12.0 % | [facility] [...] + + + | % Basophils | 0.5 | 0.0 - 1.0 % | [facility] | | | | | | [facility] | [facility] | | | | | | CENTER - | | | | | | LABORATORY | | + + + + + + | Absolute | 12.70 (H) | 1.80 - 8.50 | [facility] | | | Neutrophils | | K/uL | [facility] | [facility] | | | | | | CENTER - | | | | | | LABORATORY | | + + + + + + | Absolute | 2.20 | 0.60 - 3.20 | [facility] | | | Lymphocytes | | K/uL | [facility] | [facility] | | | | | | CENTER - | | | | | | LABORATORY | | + + + + + + | Absolute | 1.30 (H) | 0.00 - 1.00 | [facility] | [...] [address] | [place] | [phone] | | [facility] | | [address] | | | - LABORATORY | | | | + + + + + Culture, MRSA (10/03/2015 4:49 AM PDT) + + + + + + | Component | Value | Ref Range | Performed | Pathologist | | | | | At | Signature | + + + + + + | Culture | Negative for MRSA by | | MERYLE | | | | chromogenic agar method | | [facility] | [facility] | | | | | | CENTER - | | | | | | LABORATORY | | + + + + + + + + | Specimen | + + | Respiratory - Both | | anterior nares (body | | structure) | + + + + + + + | Performing | Address | City/State/Zipcode | Phone Number | | Organization | | | | + + + + + | [facility] | [address] | [place] | [phone] | | [facility] | | [address] | | | - LABORATORY | | | | + + + + + documented in this encounter Visit Diagnoses + + | Diagnosis | + + | CAP (community acquired pneumonia) - Primary Pneumonia, organism unspecified | + + | Chronic obstructive pulmonary disease, unspecified COPD type (HCC) | + + | Recurrent squamous cell carcinoma of lung, unspecified laterality (HCC) | + + | Chronic pain syndrome | + + | Chronic bronchitis, unspecified chronic bronchitis type (HCC) | + + | Fungus disease Other and unspecified mycoses | + + | Radiation pneumonitis (HCC) Acute pulmonary manifestations due to radiation | + + documented in this encounter Administered Medications + +--------+ +--------+------+------+ | Medication Order | MAR | Action | Dose | Rate | Site | | | Action | Date | | | | + +--------+ +--------+------+------+ | albuterol 2.5 mg/3 mL nebulizer | Given | 10/03/19 | 2.5 mg | | | | solution 2.5 mg 2.5 mg, | | 16 5:15 | | | | | Nebulization, RT Q1H, First dose | | AM PDT | | | | | on Thu10/03/15 at 0500, RT will | | | | | | | administer., | | | | | | + +--------+ +--------+------+------+ +---+---+ | | | +---+---+ + +-------+ +-------+---+---+ | albuterol-ipratropium (DUONEB) | Given | 10/06/19 | 3 mLs | | | | 2.5-0.5 mg/3 mL nebulizer | | 16 11:47 | | | | | solution 3 mL 3 mL, | | AM PDT | | | | | Nebulization, RT 4X DAILY, First | | | | | | | dose (after last modification) on | | | | | | | 10/03/15 at 0800 | | | | | | + +-------+ +-------+---+---+ +-------+ +-------+---+---+ | Given | 10/06/19 | 3 mLs | | | | | 16 8:56 | | | | | | AM PDT | | | | +-------+ +-------+---+---+ | Given | 10/05/19 | 3 mLs | | | | | 16 8:00 | | | | | | PM PDT | | | | +-------+ +-------+---+---+ +---+---+ | | | +---+---+ + +-------+ +-------+---+---+ | aspirin EC tablet 81 mg 81 mg, | Given | 10/06/19 | 81 mg | | | | Oral, DAILY, First dose on Thu | | 16 8:51 | | | | | 10/03/15 at 0900 | | AM PDT | | | | + +-------+ +-------+---+---+ +-------+ +-------+---+---+ | Given | 10/05/19 | 81 mg | | | | | 16 8:58 | | | | | | AM PDT | | | | +-------+ +-------+---+---+ | Given | 10/04/19 | 81 mg | | | | | 16 9:51 | | | | | | AM PDT | | | | +-------+ +-------+---+---+ +---+---+ | | | +---+---+ + +-------+ +--------+---+---+ | budesonide (PULMICORT) 0.5 mg/2 | Given | 10/06/19 | 0.5 mg | | | | mL nebulizer solution 0.5 mg | | 16 8:56 | | | | | 0.5 mg, Nebulization, RT BID, | | AM PDT | | | | | First dose on Thu10/03/15 at 0900, | | | | | | | RT will administer. Shake well. | | | | | | | Protect from light. Rinse mouth | | | | | | | after use., | | | | | | + +-------+ +--------+---+---+ +-------+ +--------+---+---+ | Given | 10/05/19 | 0.5 mg | | | | | 16 8:00 | | | | | | PM PDT | | | | +-------+ +--------+---+---+ | Given | 10/05/19 | 0.5 mg | | | | | 16 7:40 | | | | | | AM PDT | | | | +-------+ +--------+---+---+ +---+---+ | | | +---+---+ + +-------+ +-------+---+---+ | clopidogrel (PLAVIX) tablet 75 | Given | 10/06/19 | 75 mg | | | | mg 75 mg, Oral, DAILY, First | | 16 8:51 | | | | | dose on Thu10/03/15 at 0900 | | AM PDT | | | | + +-------+ +-------+---+---+ +-------+ +-------+---+---+ | Given | 10/05/19 | 75 mg | | | | | 16 8:53 | | | | | | AM PDT | | | | +-------+ +-------+---+---+ | Given | 10/04/19 | 75 mg | | | | | 16 9:51 | | | | | | AM PDT | | | | +-------+ +-------+---+---+ +---+---+ | | | +---+---+ + +-------+ +-------+---+ + | enoxaparin (LOVENOX) 40 mg/0.4 | Given | 10/06/19 | 40 mg | | Abdomen- | | mL injection 40 mg 40 mg, | | 16 8:51 | | | LLQ | | Subcutaneous, EVERY 24 HOURS | | AM PDT | | | | | (Daily), First dose on Thu10/03/15 | | | | | | | at 0900 | | | | | | + +-------+ +-------+---+ + +-------+ +-------+---+ + | Given | 10/05/19 | 40 mg | | Abdomen- | | | 16 8:51 | | | RLQ | | | AM PDT | | | | +-------+ +-------+---+ + | Given | 10/04/19 | 40 mg | | Abdomen- | | | 16 9:51 | | | LUQ | | | AM PDT | | | | +-------+ +-------+---+ + +---+---+ | | | +---+---+ + +-------+ +-------+---+---+ | heparin 100 units/mL flush | Given | 10/06/19 | 500 | | | | injection 500 Units 500 Units ( | 12:04 | Units | | | | mL), Intracatheter, ONCE, Sat | | PM PDT | | | | | 10/06/15 at 1200, For 1 dose | | | | | | + +-------+ +-------+---+---+ +---+---+ | | | +---+---+ + +-------+ +--------+---+---+ | HYDROmorphone (DILAUDID) | Given | 10/03/19 | 0.8 mg | | | | injection 0.4-0.8 mg 0.4-0.8 mg, | | 16 8:06 | | | | | Intravenous, EVERY 2 HOURS PRN, | | AM PDT | | | | | Pain, Starting 10/03/15 at 0501 | | | | | | + +-------+ +--------+---+---+ +-------+ +--------+---+---+ | Given | 10/03/19 | 0.5 mg | | | | | 16 5:08 | | | | | | AM PDT | | | | +-------+ +--------+---+---+ +---+---+ | | | +---+---+ + +-------+ +------+---+---+ | HYDROmorphone (DILAUDID) | Given | 10/04/19 | 1 mg | | | | injection 1 mg 1 mg, | | 16 7:45 | | | | | Intravenous, EVERY 2 HOURS PRN, | | PM PDT | | | | | Pain, Starting Thu10/03/15 at 0815 | | | | | | + +-------+ +------+---+---+ +-------+ +------+---+---+ | Given | 10/04/19 | 1 mg | | | | | 16 11:50 | | | | | | AM PDT | | | | +-------+ +------+---+---+ | Given | 10/04/19 | 1 mg | | | | | 16 4:55 | | | | | | AM PDT | | | | +-------+ +------+---+---+ +---+---+ | | | +---+---+ + +-------+ +------+---+---+ | HYDROmorphone (DILAUDID) tablet | Given | 10/06/19 | 8 mg | | | | 8 mg 8 mg, Oral, EVERY 3 HOURS | | 16 12:04 | | | | | PRN, Pain, Starting Thu10/03/15 at | | PM PDT | | | | | 0814 | | | | | | + +-------+ +------+---+---+ +-------+ +------+---+---+ | Given | 10/06/19 | 8 mg | | | | | 16 8:50 | | | | | | AM PDT | | | | +-------+ +------+---+---+ | Given | 10/06/19 | 8 mg | | | | | 16 5:49 | | | | | | AM PDT | | | | +-------+ +------+---+---+ +---+---+ | | | +---+---+ + +-------+ +--------+---+---+ | levothyroxine (SYNTHROID, | Given | 10/06/19 | 75 mcg | | | | LEVOTHROID) tablet 75 mcg 75 | | 16 6:56 | | | | | mcg, Oral, DAILY BEFORE | | AM PDT | | | | | BREAKFAST, First dose on Thu | | | | | | | 10/03/15 at 0700, Give before | | | | | | | breakfast., | | | | | | + +-------+ +--------+---+---+ +-------+ +--------+---+---+ | Given | 10/05/19 | 75 mcg | | | | | 16 6:32 | | | | | | AM PDT | | | | +-------+ +--------+---+---+ | Given | 10/04/19 | 75 mcg | | | | | 16 6:31 | | | | | | AM PDT | | | | +-------+ +--------+---+---+ +---+---+ | | | +---+---+ + +-------+ +------+---+---+ | LORazepam (ATIVAN) tablet 1 mg | Given | 10/04/19 | 1 mg | | | | 1 mg, Oral, EVERY 6 HOURS PRN, | | 16 2:55 | | | | | Anxiety, Starting 10/03/15 at | | PM PDT | | | | | 0523 | | | | | | + +-------+ +------+---+---+ +-------+ +------+---+---+ | Given | 10/03/19 | 1 mg | | | | | 16 8:10 | | | | | | AM PDT | | | | +-------+ +------+---+---+ +---+---+ | | | +---+---+ + +-------+ +-------+---+---+ | pantoprazole (PROTONIX) DR | Given | 10/06/19 | 40 mg | | | | tablet 40 mg 40 mg, Oral, 2 | | 16 6:56 | | | | | TIMES DAILY BEFORE MEALS, First | | AM PDT | | | | | dose on Thu10/03/15 at 0730, Do | | | | | | | not cut or crush. Therapeutic | | | | | | | Interchange for omeprazole., | | | | | | + +-------+ +-------+---+---+ +-------+ +-------+---+---+ | Given | 10/05/19 | 40 mg | | | | | 16 4:44 | | | | | | PM PDT | | | | +-------+ +-------+---+---+ | Given | 10/05/19 | 40 mg | | | | | 16 6:32 | | | | | | AM PDT | | | | +-------+ +-------+---+---+ +---+---+ | | | +---+---+ + +---------+ +---------+ +---+ | piperacillin-tazobactam (ZOSYN) | New Bag | 10/06/19 | 3.375 g | 25 mL/hr | | | 3.375 g in sodium chloride 0.9% | | 16 1:44 | | | | | 100 mL IVPB 3.375 g, | | AM PDT | | | | | Intravenous, Administer over 4 | | | | | | | Hours, EVERY 8 HOURS INTERVAL, | | | | | | | First dose on Thu10/03/15 at 1000, | | | | | | | Activate system and mix before | | | | | | | use., Indications: Community | | | | | | | Acquired Pneumonia | | | | | | + +---------+ +---------+ +---+ +---------+ +---------+ +---+ | New Bag | 10/05/19 | 3.375 g | 25 mL/hr | | | | 16 7:01 | | | | | | PM PDT | | | | +---------+ +---------+ +---+ | New Bag | 10/05/19 | 3.375 g | 25 mL/hr | | | | 16 12:53 | | | | | | PM PDT | | | | +---------+ +---------+ +---+ +---+---+ | | | +---+---+ + +---------+ +-------+-------+---+ | piperacillin-tazobactam (ZOSYN) | New Bag | 10/03/19 | 4.5 g | 200 | | | 4.5 g in sodium chloride 0.9% | | 16 6:57 | | mL/hr | | | 100 mL IVPB 4.5 g, Intravenous, | | AM PDT | | | | | Administer over 0.5 Hours, ONCE, | | | | | | | Thu10/03/15 at 0615, For 1 dose, | | | | | | | Activate system and mix before | | | | | | | use., Indications: Community | | | | | | | Acquired Pneumonia | | | | | | + +---------+ +-------+-------+---+ +---+---+ | | | +---+---+ + +-------+ +-------+---+---+ | predniSONE (DELTASONE) tablet | Given | 10/06/19 | 40 mg | | | | 40 mg 40 mg, Oral, DAILY, First | | 16 8:51 | | | | | dose on Thu10/03/15 at 0900 | | AM PDT | | | | + +-------+ +-------+---+---+ +-------+ +-------+---+---+ | Given | 10/05/19 | 40 mg | | | | | 16 8:54 | | | | | | AM PDT | | | | +-------+ +-------+---+---+ | Given | 10/04/19 | 40 mg | | | | | 16 9:51 | | | | | | AM PDT | | | | +-------+ +-------+---+---+ +---+---+ | | | +---+---+ + +---------+ +-----+-------+---+ | vancomycin 1 g in sodium | New Bag | 10/04/19 | 1 g | 260 | | | chloride 0.9% 250 mL IVPB 1 g, | | 16 9:25 | | mL/hr | | | Intravenous, Administer over 60 | | AM PDT | | | | | Minutes, EVERY 24 HOURS INTERVAL, | | | | | | | First dose on Thu10/03/15 at | | | | | | | 0900, Keep in refrigerator., | | | | | | | Indications: Pneumonia | | | | | | + +---------+ +-----+-------+---+ +---------+ +-----+-------+---+ | New Bag | 10/03/19 | 1 g | 260 | | | | 16 8:48 | | mL/hr | | | | AM PDT | | | | +---------+ +-----+-------+---+ +---+---+ | | | +---+---+ + +---------+ + +-------+---+ | vancomycin 1,250 mg in sodium | New Bag | 10/06/19 | 1,250 mg | 175 | | | chloride 0.9% 250 mL IVPB 1,250 | | 16 9:38 | | mL/hr | | | mg, Intravenous, Administer over | | AM PDT | | | | | 90 Minutes, EVERY 24 HOURS | | | | | | | INTERVAL, First dose (after last | | | | | | | modification) on Thu10/05/15 at | | | | | | | 1030, Keep in refrigerator., | | | | | | | Indications: Pneumonia | | | | | | + +---------+ + +-------+---+ +---------+ + +-------+---+ | New Bag | 10/05/19 | 1,250 mg | 175 | | | | 16 10:48 | | mL/hr | | | | AM PDT | | | | +---------+ + +-------+---+ +---+---+ | | | +---+---+ + +-------+ +---------+---+---+ | venlafaxine (EFFEXOR) tablet | Given | 10/06/19 | 37.5 mg | | | | 37.5 mg 37.5 mg, Oral, 2 TIMES | | 16 8:51 | | | | | DAILY, First dose on Thu10/03/15 | | AM PDT | | | | | at 0900 | | | | | | + +-------+ +---------+---+---+ +-------+ +---------+---+---+ | Given | 10/05/19 | 37.5 mg | | | | | 16 10:16 | | | | | | PM PDT | | | | +-------+ +---------+---+---+ | Given | 10/05/19 | 37.5 mg | | | | | 16 8:54 | | | | | | AM PDT | | | | +-------+ +---------+---+---+ +---+---+ | | | +---+---+ documented in this encounter
--- OUTSIDE RECORDS SUMMARY | ~2019-05-05 | XMS | Encounter Summary ---
Demographics + + + | Address | [address] | | | [place] [address] | + + + | Home Phone | | + + + | Preferred Language | Unknown | + + + | Marital Status | | + + + | Bahai Affiliation | Unknown | + + + [...] [place] | | | | | [address] | | + + + + + Care Team Providers + +------+ + | Care Social Worker Delinquency Prevention Name | Role | Phone | + [...] + + | 12/31/ | [facility] | Noreen Stanley | Medication Refill | | 2015 | | [facility] MED[facility] | P, RN | | | | | [facility] CLINIC [address] | | | | | | [address] | | | | | | [place] [address] | | | | | | [phone] | | | +--------+--------+ + + + [...] W | | | | | | [facility] | | | | | | [place] [address] | | | | | | [phone] | | | | | | | | +--------+ + + + + | 06/08/ | Office | Physical Medicine | Rocky Santos, | | | 2019 | Visit | and Rehabilitation | [address] | | | | | | [place] | | | | | | [phone] | | | | | | | | +--------+ + + + + | 06/16/ | Appointment | Pulmonology | Eveline Jaffe | | | 2019 | | | MD [address] | | | | | | [address] [place] | | | | | | [place] [address] | | | | | | [phone] | | | | | | | | +--------+ + + + + | 06/16/ | Office | Pulmonology | Eveline Jaffe | | | 2019 | Visit | | MD Nichole Carter | | | | | | [address] [place] | | | | | | [place] [address] | | | | | | [phone] | | | | | | | | +--------+ + + + + | 08/24/ | Office | Cardiology | Anisha Lopez DO | | 2019 | Visit | | [address] | | | | | | [place] | | | | | | [address] | | | | | | | | +--------+ + + + + documented as of this encounter Visit Diagnoses + + | Diagnosis | + + | Gastroesophageal reflux disease without esophagitis - Primary Esophageal reflux | + + documented in this encounter"
--- OUTSIDE RECORDS SUMMARY | ~2019-05-05 | XMS | Encounter Summary ---
Demographics + + + | Address | [address] | | | [place] [address] | + + + | Home Phone [...] [place] | | | | | [address] | | + + + + + Care Team Providers + +------+ + | Care Title Curator Name | Role | Phone | + +------+ + | Davis Ivan MD | PCP | | + +------+ + Encounter Details +--------+ + + + + | Date | Type | Department | Care Team | Description | +--------+ + + + + | 10/11/ | Hospital | [facility] | Adelita Lu MD | Pulmonary nodules; | | 2014 | Encounter | MED CTR CHEMO | [address] | Recurrent squamous | | | | [address] | [place], [place] | cell carcinoma of | | | | [place], | [address] | lung, right (HCC); | | | | [place] [address] | [phone] | Malignant neoplasm | | | | [phone] | | of lower lobe of | [...] | | | | | [place] [address] | | | | | | [phone] | | | | | | | | +--------+ + + + + | 06/08/ | Office | Physical Medicine | Rocky Santos, | | | 2019 | Visit | and Rehabilitation | [address] | | | | | | [place] | | | | | | [address] | | | | | | | | +--------+ + + + + | 06/16/ | Appointment | Pulmonology | Eveline Jaffe | | 2019 | | | MD [address] | | | | | | [address] [place] | | | | | | [place] [address] | | | | | | [phone] | | | | | | | | +--------+ + + + + | 06/16/ | Office | Pulmonology | Eveline Jaffe | | | 2019 | Visit | | MD Raul [address] | | | | | | [address] | | | | | | [place] [address] | | | | | | [phone] | | | | | | | | +--------+ + + + + | 08/24/ | Office | Cardiology | Anisha Lopez DO | | | 2019 | Visit | | [address] | | | | | | [place] | | | | | | [id number] | | | | | | | [...] mL/min/1.73m2 | [facility] | | | [facility] | | | MEDICAL | | | [...] [address] | [place] | [phone] | | [facility] | | [address] | | | - LABORATORY | | [...] [address] | [place] | [phone] | | [facility] | | [address] | | | - LABORATORY | | [...] | | MEDICAL | | | | mL/min/1.33b9Nlcy than | | CENTER - | | [...] ST. | [address] | [place], [place] | [phone] | | [facility] | | [address] | | | - LABORATORY | | [...] [address] | [place] | [phone] | | [facility] | | [address] | | | - LABORATORY | | [...]
--- OUTSIDE RECORDS SUMMARY | ~2019-05-05 | XMS | Encounter Summary ---
Demographics + + + | Address | [address] | | | [place] [address] | + + + | Home Phone [...] [place] | | | | | [address] | | + + + + + Care Team Providers + +------+ + | Care Component Prep Operator Name | Role | Phone | [...] + + | 01/15/ | Refill | [facility] | Vivian, | Medication Refill | | 2014 | | MED CTR MEDICAL | Lokesh Gramajo MD [address] | | | | | [facility] [address] | [facility] | | | | | [facility] | [place] [address] | | | | | [place] [address] | [phone] | | | | | [phone] | | | +--------+--------+ + + + [...] | 2018 | Visit | | [address] | | | | | | [facility] | | | | | | [place] [address] | | | | | | [phone] | | | | | | | | +--------+ + + + + | 06/08/ | Office | Physical Medicine | Rocky Santos, | | | 2019 | Visit | and Rehabilitation | [address] | | | | | | [place] | | | | | | [address] | | | | | | | | +--------+ + + + + | 06/16/ | Appointment | Pulmonology | Eveline Jaffe | | 2019 | | | MD [address] | | | | | | [address] [place] | | | | | | [place] [address] | | | | | | [phone] | | | | | | | | +--------+ + + + + | 06/16/ | Office | Pulmonology | Eveline Jaffe | | | 2019 | Visit | | MD Nichole Carter | | | | | | [address] [place] | | | | | | [place] [address] | | | | | | [phone] | | | | | | | | +--------+ + + + + | 08/24/ | Office | Cardiology | Anisha Lopez DO | | 2019 | Visit | | [address] | | | | | | [place] | | | | | | [address] | | | | | | | | +--------+ + + + + documented as of this encounter Visit Diagnoses + + | Diagnosis | + + | Gastroesophageal reflux disease without esophagitis - Primary Esophageal reflux | + + documented in this encounter"
--- OUTSIDE RECORDS SUMMARY | ~2019-05-05 | XMS | Encounter Summary ---
Demographics + + + | Address | [address] | | | [place] [address] | + + + | Home Phone [...] [place] | | | | | [address] | | + + + + + Care Team Providers + +------+ + | Care Station Installation Supervisor Name | Role | Phone | [...] [place] | | | | | [place], | [address] | | | | | [place] [address] | | | | | | [phone] | | | +--------+ + + + [...] | | | | | [place] [address] | | | | | | [phone] | | | | | | | | +--------+ + + + + | 06/08/ | Office | Physical Medicine | Rocky Santos, | | | 2019 | Visit | and Rehabilitation | MD Nichole Landis | | | | | | [place] | | | | | | [id number] | | | | | | | | +--------+ + + + + | 06/16/ | Appointment | Pulmonology | Eveline Jaffe | | 2019 | | | MD Nichole Carter W | | | | | | [address] | | | | | | [place] [address] | | | | | | [phone] | | | | | | | | +--------+ + + + + | 06/16/ | Office | Pulmonology | Eveline Jaffe | | | 2019 | Visit | | MD Raul [address] | | | | | | [address] | | | | | | [place] [address] | | | | | | [phone] | | | | | | | | +--------+ + + + + | 08/24/ | Office | Cardiology | Anisha Lopez DO | | | 2019 | Visit | | [address] | | | | | | [place] | | | | | | [address] | | | | | | | | +--------+ + + + + documented as of this encounter Visit Diagnoses Not on filedocumented in this encounter"
--- OUTSIDE RECORDS SUMMARY | ~2019-05-05 | XMS | Encounter Summary ---
Demographics + + + | Address | [address] | | | [place] [address] | + + + | Home Phone [...] [place] | | | | | [address] | | + + + + + Care Team Providers + +------+ + | Care Dough Sheeter Name | Role | Phone | + [...] | [facility] | [address] | cell carcinoma of | | | | ONCOLOGY CLINIC [address] | [place], [place] | lung, right (HCC) | | | | [address] [place] | [address] | (Primary Dx) | | | | [facility] [place] [address] | [phone] | | | | | [phone] | | | +--------+ + + + [...] Lu MD - 09/12/2014 9:34 AM PDT .[facility] Hem-Onc Progress Note [facility] Patient name:Thea Caromna : 1945 Age: 69 y.o. CSN: [id number] Date of Service: 09/12/2014 Identifying Statement: Thea Carmona is a 69 y.o. female from [facility] with clinical stage II, non-small [...] lewis 2.CT-guided biopsy by interventional radiology at [facility] of the right lung massshows [...] by Dr. Mace , thoracic surgeon at [facility] for consideration of broncho scopy, [...] pulmonary disease) ([facility]) on albuterol Spondylolisthesis of cervical region Spinal stenosis has tried cortisone injections Osteoporosis Depression Pneumonia 2009 hospitalized 5 days Rheumatoid arthritis(714.0) ([facility]) on pred[facility]one and [facility]ate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 RES[facility]IR[facility]ORY [facility] ResMed S9 auto CPAP 5-9 cm H2O. Heater and Humidifier . All necessary supplies. AHI 11.6. Diagnosis Code(s)327.23, also has co morbid hypertension , history of stroke. Length of Need 99 months. Please send order to [facility]. RESPIR[facility]ORY [facility] Respironics autotitrating CPAP at 5-9 cm H2O [...] 0.00-0.10 K/uL Imaging: PET/CT scan June 2014: [facility]: Necrotic right lung lesion wit [...] this chart may have been created with [employer] voice recognition software. Occasi onal wrong-word or [...] | 2018 | Visit | | [address] | | | | | | [facility] | | | | | | [place] [address] | | | | | | [phone] | | | | | | | | +--------+ + + + + | 06/08/ | Office | Physical Medicine | Rocky Santos, | | | 2019 | Visit | and Rehabilitation | MD Nichole [address] | | | | | | [place] | | | | | | [address] | | | | | | | | +--------+ + + + + | 06/16/ | Appointment | Pulmonology | Eveline Jaffe | | 2019 | | | MD Nichole Carter | | | | | | [address] [place] | | | | | | [place] [address] | | | | | | [phone] | | | | | | | | +--------+ + + + + | 06/16/ | Office | Pulmonology | Eveline Jaffe | | | 2019 | Visit | | MD Nichole Carter | | | | | | [address] [place] | | | | | | [place] [address] | | | | | | [phone] | | | | | | | | +--------+ + + + + | 08/24/ | Office | Cardiology | Anisha Lopez DO | | | 2020 | Visit | | [address] | | | | | | [place] | | | | | | [address] | | | | | | | | +--------+ + + + + documented as of this encounter Visit Diagnoses + + | Diagnosis | + + | Recurrent squamous cell carcinoma of lung, right (HCC) - Primary | + + documented in this encounter"
--- OUTSIDE RECORDS SUMMARY | ~2019-05-05 | XMS | Encounter Summary ---
Demographics + + + | Address | [address] | | | [place] [address] | + + + | Home Phone [...] [place] | | | | | [address] | | + + + + + Care Team Providers + +------+ + | Care Red Leader Name | Role | Phone | + +------+ + | Davis Ivan MD | PCP | | + +------+ + Reason for Visit +--------+ + | Reason | Comments | +--------+ + | Other | [facility] | +--------+ + Encounter Details +--------+ + + + + | Date | Type | Department | Care Team | Description | +--------+ + + + + | 06/12/ | Telephone | [facility] [place] | Claudia, | Other ([facility]) | | 2015 | | PULMONARY [address] | Ayana Looney MD | | | | | [place], | | | | | | [place] [address] | | | | | | [phone] | | | +--------+ + + + [...] | | | | | [place] [address] | | | | | | [phone] | | | | | | | | +--------+ + + + + | 06/08/ | Office | Physical Medicine | Rocky Santos, | | | 2019 | Visit | and Rehabilitation | [address] | | | | | | [place] | | | | | | [address] | | | | | | | | +--------+ + + + + | 06/16/ | Appointment | Pulmonology | Eveline Jaffe | | | 2019 | | | MD Nichoel [address] | | | | | | [address] [place] | | | | | | [place] [address] | | | | | | [phone] | | | | | | | | +--------+ + + + + | 06/16/ | Office | Pulmonology | Eveline Jaffe | | | 2019 | Visit | | MD Nichole Carter | | | | | | [address] [place] | | | | | | [place] [address] | | | | | | [phone] | | | | | | | | +--------+ + + + + | 08/24/ | Office | Cardiology | Anisha Lopez DO | | | 2019 | Visit | | [address] | | | | | | [place] | | | | | | [address] | | | | | | | | +--------+ + + + + documented as of this encounter Visit Diagnoses + + | Diagnosis | + + | Chronic obstructive pulmonary disease, unspecified COPD type (HCC) - Primary | + + documented in this encounter"
--- OUTSIDE RECORDS SUMMARY | ~2019-05-05 | XMS | Encounter Summary ---
Demographics + + + | Address | [address] | | | [place] [address] | + + + | Home Phone [...] [place] | | | | | [address] | | + + + + + Care Team Providers + +------+ + | Care Cath Lab Radiological Technologist Name | Role | Phone | [...] MD | obstructive | | | | [place], | | pulmonary disease) | | | | [place] [address] | | (HCC) (Primary Dx); | | | | [phone] | | Lung mass | +--------+ + [...] | | | | | [place] [address] | | | | | | [phone] | | | | | | | | +--------+ + + + + | 06/08/ | Office | Physical Medicine | Rocky Santos, | | | 2019 | Visit | and Rehabilitation | MD [address] | | | | | | [place] | | | | | | [address] | | | | | | | | +--------+ + + + + | 06/16/ | Appointment | Pulmonology | Eveline Jaffe | | 2019 | | | MD Nichole Carter | | | | | | [address] | | | | | | [place] [address] | | | | | | [phone] | | | | | | | | +--------+ + + + + | 06/16/ | Office | Pulmonology | Eveline Jaffe | | | 2019 | Visit | | MD Raul [address] | | | | | | [address] | | | | | | [place] [address] | | | | | | [phone] | | | | | | | | +--------+ + + + + | 08/24/ | Office | Cardiology | Anisha Lopez DO | | | 2019 | Visit | | [address] | | | | | | [place] | | | | | | [address] | | | | | | | [...]
--- OUTSIDE RECORDS SUMMARY | ~2019-05-05 | XMS | Encounter Summary ---
Demographics + + + | Address | [address] | | | [place] [address] | + + + | Home Phone [...] [place] | | | | | [address] | | + + + + + Care Team Providers + +------+ + | Care Medical Doctor Md Name | Role | Phone | + [...] + + | 09/06/ | Hospital | [facility] | Adelita Lu MD | 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 | Encounter | [facility] | [address] | carcinoma of lung, | | | | INFUSION [address] | [place], [place] | stage I, unspecified | | | | [place], | [address] | laterality (HCC) | | | | [place] [address] | [phone] | (Primary Dx); | | | | [phone] | | Recurrent squamous | | | [...] | 2018 | Visit | | [address] | | | | | | [place] | | | | | | [place] [address] | | | | | | [phone] | | | | | | | | +--------+ + + + + | 06/08/ | Office | Physical Medicine | Rocky Santos, | | | 2019 | Visit | and Rehabilitation | MD Vare[address] | | | | | | [place] | | | | | | [address] | | | | | | | | +--------+ + + + + | 06/16/ | Appointment | Pulmonology | Eveline Jaffe | | | 2019 | | | MD Nichole Carter [address] | | | | | | [address] [place] | | | | | | [place] [address] | | | | | | [phone] | | | | | | | | +--------+ + + + + | 06/16/ | Office | Pulmonology | Eveline Jaffe | | | 2019 | Visit | | MD Nichole Carter [address] | | | | | | [address] [place] | | | | | | [place] [address] | | | | | | [phone] | | | | | | | | +--------+ + + + + | 08/24/ | Office | Cardiology | Anisha Lopez DO | | | 2019 | Visit | | [address] | | | | | | [place] | | | | | | [address] | | | | | | | [...] + | [facility] | [address] | [place] | [phone] | | [facility] | | [address] | | | - LABORATORY | | [...] | | | FILTRATION | mL/min/1.73m2 | [facility] | | | [place] | RATE,ESTIMATED | | MEDICAL | | | | mL/min/1.12c7Ykyg than | | CENTER - | | [...] | | | | | mg/dL | [facility] | | | | | | MEDICAL | | | | | | CENTER - | | | | | | LABORATORY | | + + + + + + | Albumin | 2.8 (L) | 3.2 - 5.0 g/dL | [facility] | | | | | | [facility] | | | | | | [...] [address] | [place] | [phone] | | [facility] | | [address] | | | - LABORATORY | | [...]
--- OUTSIDE RECORDS SUMMARY | ~2019-05-05 | XMS | Encounter Summary ---
Demographics + + + | Address | [address] | | | [place] [address] | + + + | Home Phone [...] [place] | | | | | [address] | | + + + + + Care Team Providers + +------+ + | Care Linoleum Tile Floor Layer Name | Role | Phone | [...] + + | 11/01/ | Telephone | [facility] | Giuliano Padilla, | Surgery Appointment | | 2019 | | ORTHOPEDIC SURGERY | MD Germania BARON | (Reschedule | | | | [address] [place] [address] | [place] | Surgery/Clearance) | | | | [place] | [id number] | | | | | [address] | | | | | | [phone] | | | +--------+ + + + [...] | 2018 | Visit | | [address] | | | | | | [facility] | | | | | | [place] [address] | | | | | | [phone] | | | | | | | | +--------+ + + + + | 06/08/ | Office | Physical Medicine | Rocky Santos, | | | 2019 | Visit | and Rehabilitation | MD Nichole Hind[address] | | | | | | [place] | | | | | | [address] | | | | | | | | +--------+ + + + + | 06/16/ | Appointment | Pulmonology | Eveline Jaffe | | | 2019 | | | MD Nichole [address] | | | | | | [address] [place] | | | | | | [place] [address] | | | | | | [phone] | | | | | | | | +--------+ + + + + | 06/16/ | Office | Pulmonology | Eveline Jaffe | | | 2019 | Visit | | MD Nichole Carter [address] | | | | | | [address] [place] | | | | | | [place] [address] | | | | | | [phone] | | | | | | | | +--------+ + + + + | 08/24/ | Office | Cardiology | Anisha Lopez DO | | | 2019 | Visit | | [address] | | | | | | [place] | | | | | | [address] | | | | | | | | +--------+ + + + + documented as of this encounter Visit Diagnoses Not on filedocumented in this encounter"
--- OUTSIDE RECORDS SUMMARY | ~2019-05-05 | XMS | Encounter Summary ---
Demographics + + + | Address | [address] | | | [place] [address] | + + + | Home Phone [...] [place] | | | | | [address] | | + + + + + Care Team Providers + +------+ + | Care Turpentiner Name | Role | Phone | + [...] + + + + | 09/06/ | Telephone | [facility] | Jimmy Banegas DO | Other | | 2014 | | [facility] | [address] [facility] | | | | | ONCOLOGY CLINIC [address] | [place], [place] | | | | | [facility] | [address] | | | | | [place] [address] | | | | | | [phone] | | | +--------+ + + + [...] W | | | | | | [facility] | | | | | | [place] [address] | | | | | | [phone] | | | | | | | | +--------+ + + + + | 06/08/ | Office | Physical Medicine | Rocky Santos, | | | 2019 | Visit | and Rehabilitation | [address] | | | | | | [place] | | | | | | [address] | | | | | | | | +--------+ + + + + | 06/16/ | Appointment | Pulmonology | Eveline Jaffe | | | 2019 | | | MD Nichole Carter [address] | | | | | | [address] [place] | | | | | | [place] [address] | | | | | | [phone] | | | | | | | | +--------+ + + + + | 06/16/ | Office | Pulmonology | Eveline Jaffe | | | 2019 | Visit | | MD Nichole Carter | | | | | | [address] [place] | | | | | | [place] [address] | | | | | | [phone] | | | | | | | | +--------+ + + + + | 08/24/ | Office | Cardiology | Anisha Lopez DO | | | 2019 | Visit | | [address] | | | | | | [place] | | | | | | [address] | | | | | | | | +--------+ + + + + documented as of this encounter Visit Diagnoses Not on filedocumented in this encounter"
--- OUTSIDE RECORDS SUMMARY | ~2019-05-05 | XMS | Encounter Summary ---
Demographics + + + | Address | [address] | | | [place] [address] | + + + | Home Phone [...] [place] | | | | | [address] | | + + + + + Care Team Providers + +------+ + | Care Cell Biology Scientist Name | Role | Phone | + +------+ + | Davis Ivan MD | PCP | | + +------+ + Encounter Details +--------+ + + + + | Date | Type | Department | Care Team | Description | +--------+ + + + + | 07/25/ | Hospital | [facility] | Jimmy Banegas DO | Malignant neoplasm | | 2015 | Encounter | [facility] | [address] | of right lung, | | | | ONCOLOGY CLINIC [address] | [place], [place] | unspecified part of | | | | [address] | [address] | lung (HCC) (Primary | | | | [place] [address] | | Dx) | | | | [phone] | | | +--------+ + + + [...] mg by | | 0 | | 04/08/201 | | mL nebulizer | nebulization every [...] | | | | | [place] [address] | | | | | | [phone] | | | | | | | | +--------+ + + + + | 06/08/ | Office | Physical Medicine | Rocky Santos, | | | 2019 | Visit | and Rehabilitation | MD [address] | | | | | | [place] | | | | | | [address] | | | | | | | | +--------+ + + + + | 06/16/ | Appointment | Pulmonology | Eveline Jaffe | | 2019 | | | MD Nichole Carter [address] | | | | | | [address] [place] | | | | | | [place] [address] | | | | | | [phone] | | | | | | | | +--------+ + + + + | 06/16/ | Office | Pulmonology | Eveline Jaffe | | | 2019 | Visit | | MD Nichole Carter [address] | | | | | | [address] [place] | | | | | | [place] [address] | | | | | | [phone] | | | | | | | | +--------+ + + + + | 08/24/ | Office | Cardiology | Anisha Lopez DO | | 2019 | Visit | | [address] | | | | | | [place] | | | | | | [address] | | | | | | | | +--------+ + + + + documented as of this encounter Visit Diagnoses + + | Diagnosis | + + | Malignant neoplasm of right lung, unspecified part of lung (HCC) - Primary | + + documented in this encounter"
--- OUTSIDE RECORDS SUMMARY | ~2019-05-05 | XMS | Encounter Summary ---
Demographics + + + | Address | [address] | | | [place] [address] | + + + | Home Phone [...] [place] | | | | | [address] | | + + + + + Care Team Providers + +------+ + | Care Angiography Technologist Name | Role | Phone | [...] | | | | | | [place] [address] | | | | | | [phone] | | | +--------+ + + + [...] | 2018 | Visit | | [address] | | | | | | [facility] | | | | | | [place] [address] | | | | | | [phone] | | | | | | | | +--------+ + + + + | 06/08/ | Office | Physical Medicine | Rocky Santos, | | | 2019 | Visit | and Rehabilitation | MD Vare[address] | | | | | | [place] | | | | | | [address] | | | | | | | | +--------+ + + + + | 06/16/ | Appointment | Pulmonology | Eveline Jaffe | | | 2019 | | | MD Nichole Carter [address] | | | | | | [address] [place] | | | | | | [place] [address] | | | | | | [phone] | | | | | | | | +--------+ + + + + | 06/16/ | Office | Pulmonology | Eveline Jaffe | | | 2019 | Visit | | MD Nichole Carter [address] | | | | | | [address] [place] | | | | | | [place] [address] | | | | | | [phone] | | | | | | | | +--------+ + + + + | 08/24/ | Office | Cardiology | Anisha Lopez DO | | | 2020 | Visit | | [address] | | | | | | [place], [place] | | | | | | [address] | | | | | | | [...] Performed At | + + + | [facility] Diagnostic Imaging | [place] | | Department [address] [place] [address] | [facility] | | [ rep ct [address]] [ rep ct [facility] | | [facility]] Signed | - IMAGING | | | | | Patient Name: THEA CARMONA Physician: | | | OFFE.01 : 1945 Age: 67 Sex: F Unit #: [id number] | | | Exam Date: 05/11/13 Location: [facility] | | | Report #: [id number] Page: | | | %(RAD)RES..mtdd.print.filter("pg") of %(RAD) | | | RES..mtdd.print.filter("tpg") | | | | | | Accession Number: [id number] | | | CHEST X-RAY CLINICAL HISTORY: [...] Transcribed Date/Time: 05/11/2013 | | | 13:38 Accounting Office Manager: <<Signature | | | on File>> | | | Matheus | | | MD Kang05/11/13 1420 <Electronically signed by Matheus Kapadia MD> | | | Matheus Kapadia MD 05/11/13 1328 Accounting Office Manager: [employer] | | | [email or web address]/11/13 1338 Ayana Taylor MD | | | | | + + + + + + + + | Performing | Address | City/State/Zipcode | Phone Number | | Organization | | | | + + + + + | [facility] | [address] | [place] | [phone] | | [facility] | | [address] | | | - IMAGING | | | | + + + + + documented in this encounter Visit Diagnoses + + | Diagnosis | + + | Pulmonary abscess (HCC) - Primary Abscess of lung | + + documented in this encounter
--- OUTSIDE RECORDS SUMMARY | ~2019-05-05 | XMS | Encounter Summary ---
Demographics + + + | Address | [address] | | | [place] [address] | + + + | Home Phone [...] [place] | | | | | [address] | | + + + + + Care Team Providers + +------+ + | Care University Registrar Name | Role | Phone | + [...] Looney MD | | | | | [place], | | | | | | [place] [address] | | | | | | [phone] | | | +--------+ + + + [...] | | | | | [place] [address] | | | | | | [phone] | | | | | | | | +--------+ + + + + | 06/08/ | Office | Physical Medicine | Rocky Santos, | | | 2019 | Visit | and Rehabilitation | [address] | | | | | | [place] | | | | | | [address] | | | | | | | | +--------+ + + + + | 06/16/ | Appointment | Pulmonology | Eveline Jaffe | | | 2019 | | | MD Nichole [address] | | | | | | [address] [place] | | | | | | [place] [address] | | | | | | [phone] | | | | | | | | +--------+ + + + + | 06/16/ | Office | Pulmonology | Eveline Jaffe | | | 2019 | Visit | | MD Nichole Carter [address] | | | | | | [address] [place] | | | | | | [place] [address] | | | | | | [phone] | | | | | | | | +--------+ + + + + | 08/24/ | Office | Cardiology | Anisha Lopez DO | | | 2019 | Visit | | [address] | | | | | | [place] | | | | | | [address] | | | | | | | | +--------+ + + + + documented as of this encounter Visit Diagnoses Not on filedocumented in this encounter"
--- OUTSIDE RECORDS SUMMARY | ~2019-05-05 | XMS | Encounter Summary ---
Demographics + + + | Address | [address] | | | [place] [address] | + + + | Home Phone [...] [place] | | | | | [address] | | + + + + + Care Team Providers + +------+ + | Care Telecommunications Specialist Name | Role | Phone | [...] | | squamous | Lokesh C, | [place] | | | | | cell | MD [address] | [place], [place] | | | | | carcinoma of | [address] | [address] | | | | | lung, right | [place], | Phone: | | | | | (HCC) | [place] [address] | [phone] | | | | | Procedures | Phone: | Fax: | | | | | PET CT Skull | [phone] | [phone] | | | | | Base To Mid | Fax: | | | | | | Thigh | [phone] | | +--------+--------+ + + + + [...] | | squamous | Lokesh C, | [place] | | | | | cell | MD [address] | [place], [place] | | | | | carcinoma of | [address] | [address] | | | | | lung, right | [place], | Phone: | | | | | (HCC) | [place] [address] | [phone] | | | | | Procedures | Phone: | Fax: | | | | | PET CT Skull | [phone] | [phone] | | | | | Base To Mid | Fax: | | | | | | Thigh | [phone] | | +--------+--------+ + + + + Encounter Details +--------+ + + + + | Date | Type | Department | Care Team | Description | +--------+ + + + + | 12/20/ | Hospital | [facility] | Vivian, | Recurrent squamous | | 2015 | Encounter | MED CTR PET SCAN | Lokesh Gramajo MD [address] | cell carcinoma of | | | | [address] [place] | [address] [place] | lung, right (HCC) | | | | [place] [address] | [place] [address] | | | | | [phone] | [phone] | | | | | | | [...] | | | | | [place] [address] | | | | | | [phone] | | | | | | | | +--------+ + + + + | 06/08/ | Office | Physical Medicine | Rocky Santos, | | | 2019 | Visit | and Rehabilitation | [address] | | | | | | [place] | | | | | | [address] | | | | | | | | +--------+ + + + + | 06/16/ | Appointment | Pulmonology | Eveline Jaffe | | | 2019 | | | MD Nichole Carter [address] | | | | | | [address] [place] | | | | | | [place] [address] | | | | | | [phone] | | | | | | | | +--------+ + + + + | 06/16/ | Office | Pulmonology | Eveline Jaffe | | | 2019 | Visit | | MD Nichole Carter [address] | | | | | | [address] [place] | | | | | | [place] [address] | | | | | | [phone] | | | | | | | | +--------+ + + + + | 08/24/ | Office | Cardiology | Anisha Lopez DO | | 2019 | Visit | | [address] | | | | | | [place] | | | | | | [address] | | | | | | | [...]
--- OUTSIDE RECORDS SUMMARY | ~2019-05-05 | XMS | Encounter Summary ---
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 NO FILMS [...] | | unspecified | [address] | [place], | | | | | laterality, | [address] | [place] [address] | | | | | sequela | [place], | Phone: | | | | | | [place] [address] | [phone] | | | | | | | Fax: | | | | | | | [phone] | +--------+ + + + + + Encounter Details +--------+---------+ + + + | Date | Type | Department | Care Team | Description | +--------+---------+ + + + | 03/14/ | Office | [facility] | [place], | Preop testing | | 2015 | Visit | ORTHOPEDIC SURGERY | Ayana Looney MD | (Primary Dx); Other | | | | [address] [facility] | Giuliano Padilla MD | secondary | | | | [place], [place] | [address] [facility] [address] | osteoarthritis of | | | | [address] | [place] [address] | first | | | | [phone] | [phone] | carpometacarpal | | | | | [...] J anuary 2011 for the diagnosis of uytu-gu-wzyh first [facility] arthritis She also has rheumatoid [...] pops with use and it affects her manager utilization review She wishes to pursue surgical options Past Medical History Diagnosis Date COPD (chronic obstructive pulmonary disease) ([facility]) on albuterol Spondylolisthesis of cervical region Spinal stenosis has tried cortisone injections Osteoporosis Depression Pneumonia 2009 hospitalized 5 days Rheumatoid arthritis(714.0) ([facility]) [facility] Hyperlipidemia on simvastatin Hypertension on clonidine and lisinopril Hypothyroidism GERD (gastroesophageal reflux disease) Stroke ([facility]) 2007 Stroke ([facility]) 2008 Squamous cell carcinoma of lung ([facility]) 07/2013 right lower lobe Sputum culture positive for Scopulariopsis species Recurrent squamous cell carcinoma of lung ([facility]) 07/11/[address] and [...] with right hilar LN biopsy, [facility] Dr. Sierra Tunneled venous port placement N/A 07/28/2014 Procedure: Port Placement; Surgeon: Chalino Chiu MD; Location: [facility] MAIN OR Colonoscopy 06/2014 Endoscopy No [...] daily. 60 tablet 3 Respiratory Therapy Supplies [facility] S9 auto CPAP 5-9 cm H2O. 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 It may have not [...] | 2018 | Visit | | [address] | | | | | | [facility] | | | | | | [place] [address] | | | | | | [phone] | | | | | | | | +--------+ + + + + | 06/08/ | Office | Physical Medicine | Rocky Santos, | | | 2019 | Visit | and Rehabilitation | MD Nichole Hinds [address] | | | | | | [place] | | | | | | [address] | | | | | | | | +--------+ + + + + | 06/16/ | Appointment | Pulmonology | Eveline Jaffe | | | 2019 | | | MD Nichole Carter [address] | | | | | | [address] [place] | | | | | | [place] [address] | | | | | | [phone] | | | | | | | | +--------+ + + + + | 06/16/ | Office | Pulmonology | Eveline Jaffe | | | 2019 | Visit | | MD Nichole Carter [address] | | | | | | [address] [place] | | | | | | [place] [address] | | | | | | [phone] | | | | | | | | +--------+ + + + + | 08/24/ | Office | Cardiology | Anisha Lopez DO | | | 2019 | Visit | | [address] | | | | | | [place] | | | | | | [address] | | | | | | | [...] + + + + | WBC | 13.4 (H) | 4.0 - 11.0 K/uL | [facility] - | | | | | | LABORATORY | | + + + + + + | RBC | 3.81 | 3.70 - 5.20 | [...] + | [facility] [facility] | [address] | [place] | [phone] | | [facility] | | [address] | | | - LABORATORY | | [...] | | | | mmol/L | [facility] | | | | | | MEDICAL [...] mL/min/1.73m2 | [facility] | | | [facility] | RATE,ESTIMATED | | MEDICAL | | | | mL/min/1.81r8Dprp than | | CENTER - | | [...] [address] | [place] | [phone] | | [facility] | | [address] | | | - LABORATORY | | | | + + + + + documented in this encounter Visit Diagnoses + + | Diagnosis | + + | Preop testing - Primary Preoperative examination, unspecified | + + | Other secondary osteoarthritis of first carpometacarpal joint of left hand | + + documented in this encounter
--- OUTSIDE RECORDS SUMMARY | ~2019-05-05 | XMS | Encounter Summary ---
Demographics + + + | Address | [address] | | | [place] [address] | + + + | Home Phone [...] [place] | | | | | [address] | | + + + + + Care Team Providers + +------+ + | Care Station Engineer Name | Role | Phone | + +------+ + | Davis Ivan MD | PCP | | + +------+ + Encounter Details +--------+ + + + + | Date | Type | Department | Care Team | Description | +--------+ + + + + | 12/21/ | Orders Only | [facility] | Provider, | Rheumatoid arthritis | | 2019 | | SYSTEM GENERIC OP | MD [address] | with rheumatoid | | | | CONVERSION [address] | [address] | factor ([facility]); | | | | [address] [place], [place] | [place] [address] | Rheumatoid arthritis | | | | [address] | | ([facility]) | | | | [phone] | | | +--------+ + + + [...] ADMINISTRATION | | | | | | [place] [address] | | | | | | [phone] | | | | | | | | +--------+ + + + + | 06/08/ | Office | Physical Medicine | Rocky Santos, | | | 2019 | Visit | and Rehabilitation | [address] | | | | | | [place] | | | | | | [address] | | | | | | | | +--------+ + + + + | 06/16/ | Appointment | Pulmonology | Eveline Jaffe | | | 2019 | | | MD Nichole [address] | | | | | | [address] [place] | | | | | | [place], [place] [address] | | | | | | [phone] | | | | | | | | +--------+ + + + + | 06/16/ | Office | Pulmonology | Eveline Jaffe | | | 2019 | Visit | | MD Nichole Carter [address] | | | | | | [address] [place] | | | | | | [place] [address] | | | | | | [phone] | | | | | | | | +--------+ + + + + | 08/24/ | Office | Cardiology | Anisha Lopez DO | | | 2019 | Visit | | [address] | | | | | | [place] | | | | | | [address] | | | | | | | | +--------+ + + + + + +------+--------+ + + | Name | Type | Priori | Associated Diagnoses | Order Schedule | | | | ty | | | + +------+--------+ + + | CBC with | Lab | Routin | Rheumatoid | Expected: | | Differential | | e | arthritis with | 04/15/2018, Expires: | | | | | rheumatoid factor | 04/15/2019 | | | | | (HCC) | | + +------+--------+ + + | Comprehensive | Lab | Routin | Rheumatoid | Expected: | | Metabolic Panel | | e | arthritis with | 04/15/2018, Expires: | | | | | rheumatoid factor | 04/15/2019 | | | | | (HCC) | | + +------+--------+ + + | Hepatitis Panel | Lab | Routin | Rheumatoid | Expected: | | | | e | arthritis with | 04/15/2018, Expires: | | | | | rheumatoid factor | 04/15/2019 | | | | | (HCC) | | + +------+--------+ + + | Hepatitis B Core Ab, | Lab | Routin | Rheumatoid | Expected: | | IgM | | e | arthritis with | 04/15/2018, Expires: | | | | | rheumatoid factor | 04/15/2019 | | | | | (HCC) | | + +------+--------+ + + | CBC with | Lab | Routin | Rheumatoid | 3 Occurrences | | Differential | | e | arthritis ([facility]) | starting 01/14/2019 | | | | | | until 10/29/2019, 1 | | | | | | completed | + +------+--------+ + + | Comprehensive | Lab | Routin | Rheumatoid | 3 Occurrences | | Metabolic Panel | | e | arthritis ([facility]) | starting 01/14/2019 | | | | | | until 10/29/2019, 1 | | | | | | completed | + +------+--------+ + + | Sedimentation Rate | Lab | Routin | Rheumatoid | 3 Occurrences | | | | e | arthritis ([facility]) | starting 01/14/2019 | | | | | | until 10/29/2019, 1 | | | | | | completed | + +------+--------+ + + | C-Reactive Protein | Lab | Routin | Rheumatoid | 3 Occurrences | | | | e | arthritis ([facility]) | starting 01/14/2019 | | | | | | until 10/29/2019, 1 | | | | | | completed | + +------+--------+ + + documented as of this encounter Results C-Reactive Protein (02/22/2019 1:58 PM PDT) + + + + + + | Component | Value | Ref Range | Performed | Pathologist | | | | | At | Signature | + + + + + + | CRP | 2.7 (H)Comment: Testing | <0.5 mg/dL | REFERENCE | | | | performed at [facility];[address] | | LAB | | | | [place] | | [facility] | | | | [address];[place] [address] | | LABORATORY | | + + + + + + + + | Specimen | + + | Blood | + + + + + + + | Performing | Address | City/State/Zipcode | Phone Number | | Organization | | | | + + + + + | REFERENCE LAB | [address] | [place] [address] | [phone] | | [facility] | [address] | | | | LABORATORY | | | | + + + + + | REFERENCE LAB | [address] | [place] [address] | | | [facility] | [address] | [...] REFERENCE | | | | performed at [facility];[address] | | LAB | | | | [place] | | [facility] | | | | [address];[place] [address] | | LABORATORY | | + + + + + + + + | Specimen | + + | Blood | + + + + + + + | Performing | Address | City/State/Zipcode | Phone Number | | Organization | | | | + + + + + | REFERENCE LAB | [address] [place] [address] | [place] [address] | [phone] | | [facility] | Blvd[address] | | | | LABORATORY | | | | + + + + + | REFERENCE LAB | [address] [place] [address] | [place] [address] | | | [facility] | Bl[address] | [...] | | | | | | MDRD IDMD traceable | | | | | | equation.Testing | | | | | | performed at [facility];[address] | | | | | | [facility] | | | | | | [facility];[place] [address] | | | | | | | | | | + + + + + + + + | Specimen | + + | Blood | + + + + + + + | Performing | Address | City/State/Zipcode | Phone Number | | Organization | | | | + + + + + | REFERENCE LAB | [address] [place] [address] | [place] [address] | [phone] | | [facility] | Bl[address] | | | | LABORATORY | | | | + + + + + | REFERENCE LAB | [address] [place] [address] | [place] [address] | | | [facility] | Blvd[address] | | | | LABORATORY | | | | + + + + + CBC with Differential (02/22/2019 1:58 PM PDT) [...] LAB | | | | performed at [facility];[address] | | [facility] | | | | [place] | | LABORATORY | | | | [address];[place] [address] | | | | | | | | | | + + + + + + + + | Specimen | + + | Blood | + + + + + + + | Performing | Address | City/State/Zipcode | Phone Number | | Organization | | | | + + + + + | REFERENCE LAB | [address] [place] [address] | [place] [address] | [phone] | | [facility] | Blvd[address] | | | | LABORATORY | | | | + + + + + | REFERENCE LAB | [address] [place] [address] | [place] [address] | | | [facility] | Blvd[address] | | | | LABORATORY | | | | + + + + + documented in this encounter Visit Diagnoses + + | Diagnosis | + + | Rheumatoid arthritis with rheumatoid factor (HCC) Rheumatoid arthritis | + + | Rheumatoid arthritis (HCC) | + + documented in this encounter"
--- OUTSIDE RECORDS SUMMARY | ~2019-05-05 | XMS | Encounter Summary ---
Demographics + + + | Address | [address] | | | [place] [address] | + + + | Home Phone [...] [address] | | | | | [address] | | + + + + + Care Team Providers + +------+ + | Care Tube Balancer Name | Role | Phone | + +------+ + PCP | Unavailable | + +------+ + Encounter Details +--------+ + + + + | Date | Type | Department | Care Team | Description | +--------+ + + + + | 10/11/ | Hospital | [facility] GENERIC IP | Conversion | Pain | | 2013 | Encounter | CONVERSION [address] | Transaction, | | | | | [address] | Provider Unknown | | | | | [place], [place] | [phone] | | | | | [address] | (Fax) | | | | | [phone] | | | +--------+ + + + [...] | | | | | [place] [address] | | | | | | [phone] | | | | | | | | +--------+ + + + + | 06/08/ | Office | Physical Medicine | Rocky Santos, | | | 2019 | Visit | and Rehabilitation | MD Nichole Landis | | | | | | [place] | | | | | | [address] | | | | | | | | +--------+ + + + + | 06/16/ | Appointment | Pulmonology | Eveline Jaffe | | 2019 | | | MD [address] | | | | | | [address] | | | | | | [place] [address] | | | | | | [phone] | | | | | | | | +--------+ + + + + | 06/16/ | Office | Pulmonology | Eveline Jaffe | | | 2019 | Visit | | MD Raul [address] | | | | | | [address] | | | | | | [place] [address] | | | | | | [phone] | | | | | | | | +--------+ + + + + | 08/24/ | Office | Cardiology | Anisha Lopez DO | | | 2019 | Visit | | [address] | | | | | | [place] | | | | | | [address] | | | | | | | [...]
--- OUTSIDE RECORDS SUMMARY | ~2019-05-05 | XMS | Encounter Summary ---
Demographics + + + | Address | [address] | | | [place] [address] | + + + | Home Phone [...] [place] | | | | | [address] | | + + + + + Care Team Providers + +------+ + | Care French Professor Name | Role | Phone | [...] | | Pulmonary | [place], | [address] | | | | | nodule | Ayana B, | [place], | | | | | Procedures | MD [address] | [place] [address] | | | | | CT Chest wo | [address] | Phone: | | | | | Contrast | [place], | [phone] | | | | | | [place] [address] | Fax: | | | | | | | [phone] | +--------+--------+ + + + + Reason [...] | (Primary Dx); | | | | [address] [place], | | Snoring; Depression | | | | [place] [address] | | | | | | [phone] | | | +--------+---------+ + + + [...] [facility] [place] [facility] [address] [place], [address] HPI Thea Carmona is a 67 y.o. [...] arthritis on prednisone and methotrexate, Dr. 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 documented in [...] HOSPITAL | | | | | | [place] [address] | | | | | | [phone] | | | | | | | | +--------+ + + + + | 06/08/ | Office | Physical Medicine | Rocky Santos, | | | 2019 | Visit | and Rehabilitation | MD Nichole Hinds [address] | | | | | | [place] | | | | | | [address] | | | | | | | | +--------+ + + + + | 06/16/ | Appointment | Pulmonology | Eveline Jaffe | | 2019 | | | MD Nichole Carter | | | | | | [address] [place] | | | | | | [place] [address] | | | | | | [phone] | | | | | | | | +--------+ + + + + | 06/16/ | Office | Pulmonology | Eveline Jaffe | | | 2019 | Visit | | MD Nichole Carter | | | | | | [address] [place] | | | | | | [place] [address] | | | | | | [phone] | | | | | | | | +--------+ + + + + | 08/24/ | Office | Cardiology | Anisha Lopez DO | | 2019 | Visit | | [address] | | | | | | [place] | | | | | | [address] | | | | | | | | +--------+ + + + + documented as of this encounter Results CT Chest wo Contrast (06/09/2013 3:45 PM PST) + + | Specimen | + + | | + + + + + | Narrative | Performed At | + + + | [facility] | [place] | | Department [address] [facility] [place] | [facility] | | [ rep ct [address]] [ rep ct [facility] [place] | | st zip] Signed | - IMAGING | | | | | Patient Name: THEA CARMONA Physician: | | | KATIE : 1945 Age: 68 Sex: F Unit #: [id number] | | | Exam Date: 06/09/13 [place] [facility] [place] | | | Report #: [id number] Page: | | | %(RAD)RES..mtdd.print.filter("pg") of %(RAD) | | | RES..mtdd.print.filter("tpg") | | | | | | Accession Number: [id number] | | | CT CHEST WITHOUT CONTRAST, 06/09/2013 CLINICAL HISTORY: | | | FOLLOWUP NODULE IN THE SUPERIOR SEGMENT OF THE RIGHT LOWER LOBE. | | | TECHNIQUE: Axial images were obtained from thoracic inlet to | | | upper abdomen without the use of contrast. | | | COMPARISON: 01/28/2013 scan from [place]. FINDINGS: A | | | partially cavitary [...] Transcribed Date/Time: 06/09/2013 16:14 | | | Commercial Print Salesman: <<Signature on File>> | | | | | | Jose Elias Leal MD06/09/13 1702 <Electronically signed by | | | Jose Elias Leal MD> Jose Elias Leal MD 06/09/13 | | | 1545 Commercial Print Salesman: [employer] Nenkvmulojlwe68/09/14 2974 | | | Ayana Taylor MD | | + + + + + + + + | Performing | Address | City/State/Zipcode | Phone Number | | Organization | | | | + + + + + | [facility] | [address] | [place] | [phone] | | [facility] | | [address] | | | - IMAGING | | [...]
--- OUTSIDE RECORDS SUMMARY | ~2019-05-05 | XMS | Encounter Summary ---
Demographics + + + | Address | [address] | | | [place] [address] | + + + | Home Phone [...] [place] | | | | | [address] | | + + + + + Care Team Providers + +------+ + | Care Outside Sales Name | Role | Phone | + +------+ + | Davis Gilbert MD | PCP | | + +------+ + Encounter Details +--------+ + + + + | Date | Type | Department | Care Team | Description | +--------+ + + + + | 04/06/ | Hospital | [facility] | Silviano Cabrera MD | | | 2012 - | Encounter | [facility] | [address] | | | | | [place] | [place], | | | 04/[birth year]/ | | [place], [place] | [place] [address] | | | 2012 | | [address] | [phone] | | | | | [phone] | | | +--------+ + + + [...] this encounter Discharge Summaries Vidal Dalton - 04/09/2013 8:48 AM PSTFormatting of this note might be different from the or iginal. Discharge Summaries by RITA Rubio at 04/09/13847 Author: RITA Rubio Service: (none) Author Type: Advanced Registered Nurse Iqra price Filed: 04/09/1350 Date of Service: 04/09/13847 Status: Signed Bi Analyst: RITA Rubio (Advanced Registered Nurse Practitioner) [facility] Service: Orthopedic Surgery Brief Post-op Discharge Note DISCHARGE DIAGNOSES: Cervical spondylolisthesis with stenosis C4-6 Procedures: Procedure(s) with comments: CERVICAL - FUSION - POSTERIOR - C4-6 & decompression This patient was transferred to the recovery area post-operatively and has experienced sign ificant pain post-op. Pain was subsequently controlled throughout the course of her hospital stay. She was ambulating with steady improvement throughout the course. Patient was dischar anette in stable condition. Disposition: Home Condition: Stable Code Status: Full Code Activity restrictions, use of aspen collar and dressing changes were d/w patient at length prior to discharge. [facility] Current Discharge Medication List START taking these medications Details calcium carbonate (TUMS) 500 MG chewable tablet Take 2 tablets by mouth every 6 (six) hours as needed. Qty: 60 tablet, Refills: 1 docusate sodium 100 MG CAPS Take 100 mg by mouth 2 (two) times daily. Qty: 60 capsule, Refills: 1 morphine (MS CONTIN) 30 MG 12 hr tablet Take 1 tablet by mouth every 12 (twelve) hours. Qty: 60 tablet, Refills: 0 ondansetron (ZOFRAN) 4 MG tablet Take 1 tablet by mouth every 6 (six) hours as needed. Qty: 20 tablet, Refills: 1 senna (SENOKOT) 8.6 MG tablet Take 2 tablets by mouth 2 (two) times daily. Qty: 60 tablet, Refills: 1 CONTINUE these medications which have CHANGED Details !! diazepam (VALIUM) 5 MG tablet Take 1 tablet by mouth every 6 (six) hours as needed (spas ms). Qty: 60 tablet, Refills: 0 !! morphine (MSIR) 30 MG tablet Take 1 tablet by mouth every 6 (six) hours as needed for Pa in. Qty: 100 tablet, Refills: 0 !! - Potential duplicate medications found. Please discuss with provider. CONTINUE these medications which have NOT CHANGED Details albuterol (PROVENTIL) (2.5 MG/3ML) 0.083% nebulizer solution Take 2.5 mg by nebulization 3 (three) times daily. History of smoking, COPD, and asthma Cholecalciferol (VITAMIN D) 2000 UNITS CAPS Take 1 capsule by mouth daily. cloNIDine (CATAPRES) 0.1 MG tablet Take 0.1 mg by mouth 2 (two) times daily. !! diazepam (VALIUM) 10 MG tablet Take 10 mg by mouth every 6 (six) hours as needed. Ferrous Sulfate (IRON) 325 (65 FE) MG TABS Take 1 tablet by mouth daily. levothyroxine (SYNTHROID, LEVOTHROID) 75 MCG tablet Take 1 tablet by mouth daily. lisinopril (PRINIVIL,ZESTRIL) 10 MG tablet Take 1 tablet by mouth daily. Magnesium 100 MG CAPS Take 1 tablet by mouth daily. methotrexate 2.5 MG tablet Take 25 tablets by mouth once a week. Takes on Thursday !! morphine (MSIR) 15 MG tablet Take 30 mg by mouth every 4 (four) hours as needed. omeprazole (PRILOSEC) 20 MG capsule Take 1 capsule by mouth 2 (two) times daily. predniSONE (DELTASONE) 5 MG tablet Take 1 tablet by mouth 2 (two) times daily. simvastatin (ZOCOR) 40 MG tablet Take 1 tablet by mouth daily. venlafaxine (EFFEXOR-XR) 75 MG 24 hr capsule Take 1 capsule by mouth daily. aspirin 81 MG tablet Take 81 mg by mouth daily. PLAVIX 75 MG tablet Take 1 tablet by mouth daily. !! - Potential duplicate medications found. Please discuss with provider. RITA MONROE 04/09/2013 documented in this encounter Medications at Time [...] Progress Notes Conversion Transaction, Provider Unknown - 04/09/2013 1:30 PM PSTFormatting of this note m ight be different from the original. Progress Notes by Matilde Turner RN at 04/09/13 1330 Author: Matilde Turner RN Service: (none) Author Type: Registered Nurse Filed: 04/09/13 1331 Date of Service: 04/09/131329 Status: Signed Bi Analyst: Matilde Turner RN (Registered Nurse) Discharge teaching done. Prescriptions given. Dressing care teaching done and supplies gi [facility]. Pt. And family claim to have no further questions or concerns. Patient stable and sushma n is under control. Patient to be DCd home with family via wheelchair when ready. MATILDE TURNER RN 04/09/2013 1:30 PM onver robert Transaction, Provider Unknown - 04/09/2013 10:23 AM PST Progress Notes by Tamiko Murphy PT at 04/09/13 1023 Author: Tamiko Murphy PT Service: (none) Author Type: Physical Therapist Filed: 04/09/13 6930 Date of Service: 04/09/13 1023 Status: Signed Bi Analyst: Tamiko Murphy PT (Physical Therapist) 04/09/13 1023 PT Last Visit PT Received On 04/09/13 Reason for Treatment Spinal surgery (Cervical fusion ) Requires PT Follow Up Yes Follow up PT Only? No Assistance Required 1 person Precautions Spinal Precautions Cervical;Cervical collar on when upright Other Comments Comments Pt agreeable to therapy; supine in bed upon PT arrival. Ambulating increasing dis tance this treatment session. Demonstrating independence with exercise program for the home and denying questions/concerns regarding mobility prior to d/c home. Cognition Overall Cognitive Status WFL Orientation Level Oriented Bed Mobility Supine to Sit Supervision Transfers Sit to/from Stand Standby assist Mobility Weight Bearing Status WBAT RLE;WBAT LLE Ambulation Assistance Supervision Maximal Ambulation Distance (feet) 250 ft Total Ambulation Distance (feet) 250 ft Distance limited by? Patient's ability Pattern Alternating;Decreased baron Assistive Device Walker front wheeled Activity Tolerance Activity Tolerance Patient tolerated treatment without report of fatigue Nurse Made Aware RN aware of mobility status Plan Treatment/Interventions Continue per Primary PT POC Progress Progressing toward goals Recommendation Recommendations Continue acute care therapy;Return to prior living situation onver robert Sigala Provider Unknown - 04/08/2013 3:41 PM PST Progress Notes by BLAIR Chang at 04/08/13 154 Author: BLAIR Chang Service: (none) Author Type: Occupational Therapist Filed: 04/08/13 154 Date of Service: 04/08/131540 Status: Signed Bi Analyst: BLAIR Chang (Occupational Therapist) 04/08/13 0927 Precautions Spinal Precautions Cervical;Cervical collar on when upright Other Precautions fall precautions Home Environment Type of Home Home one story Home Exterior Layout 7-10 steps;Rail on L ascending (7 CONCHIS ) Home Interior Layout Lives on main level with bedroom/bathroom Bathroom Shower/Tub Tub/shower unit Bathroom Toilet Standard Bathroom Equipment Shower chair;Tub transfer bench (has tub t/f bench but doesnt use it ) Bathroom Accessibility Accessible via walker (small space. pt hold onto sink counter) Home Equipment Cane single point;Walker 4 wheeled Additional Comments suggested pt use tub t/f bench vs shower chair. Pt stated understanding . Prior Function Level of [place] Modified independent with ADLs;Assist with IADLs;Modified independent with functional mobility Lives With Alone Receives Help From Family;Other (Comment) (Caregiver and SO) ADL Assistance Needs assistance Bath Moderate assist Dressing Moderate assist (Assist w/LB dressing only ) Comments caregiver comes in 3 hours a day 7 days a week. Son comes over 2 days, and pt's SO comes over frequently to assist pt prn. Caregiver assists pt with dressing, cooking, cleani ng, laundry, grocery shopping. Pt reports her L side is weaker than her R d/t hx of stroke 4-5 years ago. ADL Additional Comments Provided pt with education re: Precautions w/ADLs including handout. Al so provided pt with AE handout and recommendations. Briefly educated pt on UE AROM exercises . Pt reported pain in neck when moving UE's. Pt agreeable to participate in eduaction but re quested to continue therapy at a later time d/t pain at 12/08. pt reports she Just received p ain pill. Pt would benefit from continued skilled OT for further assessment of ADLs and inc education on AE as well as compensatory strategies to complete daily tasks. Pain Screening Currently in Pain Yes Pain Assessment 0-10 Pain Score SEVEN Pain Intervention(s) (pt reports she just had a pain pill ) Vision-Basic Assessment Current Vision Wears glasses Cognition Overall Cognitive Status WFL Orientation Level Oriented Comments pt very lethargic during initial eval Sensation Light Touch No apparent deficits Proprioception Proprioception No apparent deficit Perception Inattention/Neglect Appears intact RUE Assessment RUE Assessment X RUE AROM (degrees) R Shoulder Flexion 0-180 45 Degrees (pt reports increased pain with UE movement ) R Shoulder Abduction 0-180 45 Degrees LUE Assessment LUE Assessment X LUE AROM (degrees) L Shoulder Flexion 0-180 45 Degrees L Shoulder ABduction 0-180 45 Degrees Hand Function Gross Grasp Functional Functional Gross Grasp Able to grasp objects without difficulty Coordination Impaired;Slowed Assessment Assessment Decreased ADL status;Decreased UE ROM;Decreased UE strength;Decreased endurance; Decreased self-care trans;Decreased high-level ADLs Prognosis Good;With continued OT s/p acute discharge Goal Formulation Patient Further Evaluation Goals Patient Will Tolerate Further ADL Treatment Within 1-2 sessions Patient Will Tolerate Further UE Status Treatment Within 1-2 sessions ADL Goals Pt Will Perform Grooming At edge of bed;Standing at sink;With min assist;With supervision Pt Will Perform LE Dressing (pt will demo ability to don socks using AE prn ) Functional Transfer Goals Pt Will Perform All Functional Transfers (pt will recall 3/3 spinal precautions ) Arm Goals Pt Will Perform AROM B UE;2 sets;5 reps;With activity tolerance;Without complain/sign of pa in (STG: intro/review UE AROM ) Pt Will Complete Theraputty Exer B UE;2 sets;Resistance putty mixture (y/g);With good activ ity tolerance onver robert Transaction, Provider Unknown - 04/08/2013 12:45 PM PST Progress Notes by Nathalie Yang PT at 04/08/13 3655 Author: Nathalie Yang PT Service: (none) Author Type: Physical Therapist Filed: 04/08/13 0016 Date of Service: 04/08/13 5628 Status: Signed Bi Analyst: Nathalie Yang PT (Physical Therapist) 04/08/13 6237 PT Last Visit PT Received On 04/08/13 Reason for Treatment Spinal surgery (Cervical fusion ) Requires PT Follow Up Yes Follow up PT Only? No Assistance Required 1 person Precautions Spinal Precautions Cervical;Cervical collar on when upright Other Comments Comments Pt seated in chair upon arrival, agreeable to therapy, pt amb 232ft w/FWW supervis ion, pt requesting to go BTB @ end of session, pt needed VC for proper bed mobility, sidelyi ng to supine Araceli and VC, pt cried out in pain during transfer, RN notified of pt in pain, p t supine in bed @ end of session. Cognition Overall Cognitive Status WFL Orientation Level Oriented Bed Mobility Sit to Sidelying Verbal instruction;Minimal assist (1 LE into bed) Transfers Sit to/from Stand Standby assist Mobility Weight Bearing Status WBAT RLE;WBAT LLE Ambulation Assistance Supervision Maximal Ambulation Distance (feet) 232ft Total Ambulation Distance (feet) 232ft Distance limited by? Patient's ability Pattern Alternating Assistive Device Walker 4 wheeled Activity Tolerance Activity Tolerance Patient limited by pain Nurse Made Aware RN aware Plan Treatment/Interventions Continue per Primary PT POC Progress Progressing toward goals Recommendation Recommendations Continue acute care therapy;Return to prior living situation onver robert Transaction, Provider Unknown - 04/08/2013 11:56 AM PST Progress Notes by Denver Arias PTA at 04/08/13 1156 Author: Denver Arias PTA Service: (none) Author Type: [employer] Shop Supervisor Filed: 04/08/13 1157 Date of Service: 04/08/13 1156 Status: Signed Bi Analyst: Denver Arias PTA ([employer] Shop Supervisor) 04/08/13 1156 PT Last Visit PT Received On 04/08/13 Requires PT Follow Up Yes Assistance Required 1 person Precautions Spinal Precautions Cervical;Cervical collar on when upright Cognition Overall Cognitive Status WFL Orientation Level Oriented Transfers Sit to/from Stand Standby assist Mobility Ambulation Assistance Standby assist Maximal Ambulation Distance (feet) 165 Total Ambulation Distance (feet) 165 Distance limited by? Patient's ability Pattern Alternating;Decreased baron Assistive Device Walker 4 wheeled Activity Tolerance Activity Tolerance Patient limited by fatigue Plan Treatment/Interventions Continue per Primary PT POC Progress Progressing toward goals Recommendation Recommendations Return to prior living situation onver robert Sigala, Provider Unknown - 04/07/2013 1:18 PM PST Progress Notes by Jenny Vila PT at 04/07/13 1318 Author: Jenny Vila PT Service: (none) Author Type: Physical Therapist Filed: 04/07/13 4777 Date of Service: 04/07/13 1318 Status: Signed Bi Analyst: Jenny Vila PT (Physical Therapist) 04/07/13 1318 PT Last Visit PT Received On 04/07/13 Reason for Treatment Spinal surgery (cervical fusion C4-C6) Requires PT Follow Up Yes Follow up PT Only? No Assistance Required 1 person Precautions Spinal Precautions Cervical;Cervical collar on when upright Other Precautions fall precautions Other Comments Comments Pt medicated just prior PT so pt agreeable. Pt improved amb to 220 ft using 4WW wi th SBA; pt asc/desc 7 stairs with L rail asc; recommended pt use side stepping technique so she feels more security given limitations of [place] collar; pt left sitting in high back kranthi r at end of session; educated to sit in chair for all meals; RN informed/agreeable. Cognition Overall Cognitive Status WFL Orientation Level Oriented Bed Mobility Supine to Sit Supervision Scooting Supervision (sitting EOB) Transfers Sit to/from Stand Supervision Mobility Weight Bearing Status WBAT RLE;WBAT LLE Ambulation Assistance Standby assist Maximal Ambulation Distance (feet) 230 Total Ambulation Distance (feet) 230 Distance limited by? Therapist/staff discretion Pattern Alternating;Decreased baron Assistive Device Walker 4 wheeled Stairs Assistance Standby assist;Minimal assist Number of Stairs 7 Number of stairs limited by? Therapist/staff discretion Stair Management Technique Step-to;Rail on right ascending (side stepping technique) Activity Tolerance Activity Tolerance Patient tolerated treatment without report of fatigue Nurse Made Aware RN Len Plan Treatment/Interventions Continue per Primary PT POC Progress Progressing toward goals Recommendation Recommendations Continue acute care therapy;Return to prior living situation Equipment Recommended (pt has needed equip) Requires PT Follow Up Yes Recommendation Comments Pt is progressing well with mobility when pain is controlled. Recom mend pt to have someone with her on stairs entering home as pt has cervical collar which guzman its pt's ability to see where she is stepping. onver robert Sigala Provider Unknown - 04/07/2013 9:04 AM PST Case Management by CLAIRE Lee at 04/07/13903 Author: CLAIRE Lee Service: (none) Author Type: Block Bolter Mule Operator Filed: 04/07/13905 Date of Service: 04/07/13903 Status: Signed Bi Analyst: CLAIRE Lee (Block Bolter Mule Operator) CM met with pt for discharge planning. Pt is 67 years old and has hired caregivers and a si gnificant other who will assist as needed. Pt lives in a 1-level home. Pt has 7 stairs at th e main entrance. Pt has a tub-shower. Pt owns a shower chair and a walker. Pt's significant other & hired caregivers will assist with her daily living activities including personal hyg iene, grooming, dressing, feeding, cooking, transportation and ambulation. Pt had no resourc e concerns at this time. CM will continue to follow as needed. Discharge Plan: Home. Colin SOSA 04/07/13 0902 Discharge Planning Evaluation Admitting Diagnosis Cervical fusion Readmission No Living Arrangements Spouse/significant other Support Systems Spouse/significant other Type of Residence Private residence House type House-1 story Steps to enter 7 Bathrooms on 1st Floor 1-Full Caregiver after Discharge Yes Relationship to Patient Significant other Caregiver Name Hired Caregivers Mental Status Oriented Anticipated Discharge Plan Post Acute Care Needs None at this time Resources Financial concerns No Transportation issues No Patient/Family concerns No Prescription Plan Yes Met with: Patient and discussed discharge planning, Pt is a 67 y.o., female Patient's PCP is: RAVINDRA GILBERT Patient's insurance: [employer] Coverage concerns: None Medication coverage/concerns: None Community resources utilized / needed: None Assistance in transportation: Not needed. Identification of any specific education / training: None Barriers to Discharge / Alternative housing needed: None Anticipated DCP: Home onver robert Sigala Provider Unknown - 04/06/2013 3:22 PM PST Progress Notes by Jenny Vila PT at 04/06/13 1522 Author: Jenny Vila PT Service: (none) Author Type: Physical Therapist Filed: 04/06/13 1609 Date of Service: 04/06/13 1522 Status: Signed Bi Analyst: Jenny Vila PT (Physical Therapist) 04/06/13 1522 PT Last Visit PT Received On 04/06/13 Reason for Treatment Spinal surgery (Cervical fusion (posterior) C4-C6 & decompress) Requires PT Follow Up Yes Follow up PT Only? No PT Eval/Reassessment Date 04/06/13 Assistance Required 1 person Requires PT Follow Up Yes Precautions Spinal Precautions Cervical Other Precautions fall precautions Plan Treatment/Interventions Balance training;Bed mobility training;Gait training;Review precaut ions;Transfer training;Therapeutic exercise PT Frequency 5-7x/wk;Twice a day;Once per day Care Duration (# of days) 7 # of days Home Environment Type of Home Home one story Home Exterior Layout 7-10 steps;Rail on L ascending (7 CONCHIS) Home Interior Layout Lives on main level with bedroom/bathroom Bathroom Shower/Tub Tub/shower unit Bathroom Toilet Standard Bathroom Equipment Shower chair;Hand-held shower head;Grab bars in shower/bath Bathroom Accessibility Not accessible Home Equipment Cane single point;Walker 4 wheeled Additional Comments Pt uses SPC in house and 4WW outdoors and in community. Pt doesn't driv e; pt has grab bars next to bed to help her get OOB mod I. Recommendation Recommendations Continue acute care therapy;Return to prior living situation Equipment Recommended (pt owns 4WW for ambulation) Recommendation Comments Pt already receives daily caregiver services and has a significant other that is around often to assist pt as needed. Prior Function Level of [place] Modified independent with functional mobility;Assist with ADLs;Assist with IADLs;Household distance Lives With Alone Receives Help From Family (Caregiver) ADL Assistance Needs assistance (bathing) Employment Retired for age Comments Caregiver comes in 3 hours/day, 7 days/wk. Caregiver assists with bathing, cooking , cleaning, laundry. Pt also has significant other that is around often to assist pt prn. RUE Assessment RUE Assessment WFL LUE Assessment LUE Assessment WFL RLE Assessment RLE Assessment WFL LLE Assessment LLE Assessment WFL Cognition Overall Cognitive Status WFL Orientation Level Oriented Sensation Light Touch No apparent deficits Perception Inattention/Neglect Appears intact Initiation Appears intact Motor Planning Appears intact Perseveration Not present Proprioception Proprioception No apparent deficit Vision-Basic Assessment Current Vision Wears glasses Assessment of Patient Status Assessment of Patient Status Decreased functional mobility;Decreased endurance;Precautions ;Pain Prognosis Should progress with skilled therapy intervention 04/06/13 1522 PT Last Visit PT Received On 04/06/13 Reason for Treatment Spinal surgery (Cervical fusion (posterior) C4-C6 & decompress) Requires PT Follow Up Yes Follow up PT Only? No PT Eval/Reassessment Date 04/06/13 Assistance Required 1 person Precautions Spinal Precautions Cervical Other Precautions fall precautions Other Comments Comments Chart reviewed, eval completed. Pt s/p cervical fusion (posterior) C4-6 with decom pression. Pt reported 6/10 pain but agreeable to PT after education (RN had recently medicat ed pt). Pt was SBA for bed mobility, SBA/Araceli for sit>std, and SBA for amb of 120 ft using 4 WW. Pt returned to bed after amb then needed to use toilet so amb another 15ft x2 to and fro m bathroom with SBA. Pt required min A when attempting to amb from toilet to sink without A D. Pt left in supine with HOB elevated eating dinner; call light in reach. Vitals pre 152/76 99% 79 bpm; post 151/78 71 bpm 97%. Cognition Overall Cognitive Status WFL Orientation Level Oriented Bed Mobility Supine to Sit Standby assist (with HOB elevated) Scooting Standby assist (supine and sitting) Transfers Sit to/from Stand Supervision;Minimal assist (steadying/contact guard) Mobility Weight Bearing Status WBAT RLE;WBAT LLE Ambulation Assistance Standby assist Maximal Ambulation Distance (feet) 120 Total Ambulation Distance (feet) 120 Distance limited by? Patient's ability Pattern Alternating;Decreased baron Assistive Device Walker 4 wheeled Balance Balance Yes Static Standing Balance Static Standing-Balance Support Right upper extremity support;Left upper extremity support Static Standing-Level of Assistance Standby assist Static Standing-Comment/Duration steady with no LOB Modalities Modalities Other therapy Other Therapy Ed on precautions, log roll, safe mobility techniques, fall prevention, use o f call light. Activity Tolerance Activity Tolerance Patient limited by pain Nurse Made Aware ZEV Carrera Plan Treatment/Interventions Balance training;Bed mobility training;Gait training;Review precaut ions;Transfer training;Therapeutic exercise PT Frequency 5-7x/wk;Twice a day;Once per day Care Duration (# of days) 7 # of days Recommendation Recommendations Continue acute care therapy;Return to prior living situation Equipment Recommended (pt owns 4WW for ambulation) Requires PT Follow Up Yes Recommendation Comments Pt already receives daily caregiver services and has a significant other that is around often to assist pt as needed. onver robert Sigala, Provider Unknown - 04/06/2013 2:56 PM PST Progress Notes by Martha Dhaliwal RPH at 04/06/13 5317 Author: Martha Dhaliwal RPH Service: (none) Author Type: Pharmacist Filed: 04/06/13 1288 Date of Service: 04/06/131455 Status: Signed Bi Analyst: Martha Dhaliwal RPH (Pharmacist) Renal Dosing Monitoring: Thea Carmona 67 y.o. female Pharmacy dosing for renal function per Dr. Cabrera No current SCr. Plan per protocol: Unable to calculate CrCL . Pharmacy will continue monitoring patient for appropriate dosing per renal function. 04/06/2013 2:55 PM Pharmacist: Martha Dhaliwal Skinny kimball in this encounter Plan of [...] | | | | | [place] [address] | | | | | | [phone] | | | | | | | | +--------+ + + + + | 06/08/ | Office | Physical Medicine | Rocky Santos, | | | 2019 | Visit | and Rehabilitation | [address] | | | | | | [place] | | | | | | [id number] | | | | | | | | +--------+ + + + + | 06/16/ | Appointment | Pulmonology | Eveline Jaffe | | | 2019 | | | MD Nichole Carter [address] | | | | | | [address] [place] | | | | | | [place], [place] [address] | | | | | | [phone] | | | | | | | | +--------+ + + + + | 06/16/ | Office | Pulmonology | Eveline Jaffe | | | 2019 | Visit | | MD Nichole Carter [address] | | | | | | [address] [place] | | | | | | [place] [address] | | | | | | [phone] | | | | | | | | +--------+ + + + + | 08/24/ | Office | Cardiology | Anisha Lopez DO | | | 2019 | Visit | | [address] | | | | | | [place] | | | | | | [address] | | | | | | | | +--------+ + + + + documented as of this encounter Procedures + +--------+ + + + | Procedure Name | Priori | Date/Time | Associated Diagnosis | Comments | | | ty | | | | + +--------+ + + + | FL C ARM > 1 HOUR | Routin | 04/06/2013 | | Results for this | | | e | 12:50 PM | | procedure are in the | | | | PST | | results section. | + +--------+ + + + documented in this encounter Results FL C-Arm > 1 Hour (04/06/2013 12:50 PM PST) + + | Specimen | + + | | + + + + + | Impressions | Performed At | + + + | 1. Probe posterior to the C3-4 level, with fusion C4-6. | | | | | + + + + + + | Narrative | Performed At | + + + | HISTORY: Spondylolisthesis. Cervical fusion. COMPARISON: | | | 01/19/13. TECHNIQUE: AP, lateral intraoperative images of the | | | cervical spine using the C-arm. 19.8 seconds fluoroscopy time.. | | | FINDINGS: Again there is anterior plate and screw fusion C4-6. On the | | | lateral image, a probe is seen posterior to C3-4, with retractors | | | posterior to C4-C6. | | + + + + + | Procedure Note | + + | Raoul Lockwood - 01/21/2019 4:40 PM PDT HISTORY:Spondylolisthesis. Cervical | | fusion. COMPARISON:01/19/13. TECHNIQUE:AP, lateral intraoperative images of the cervical | | spine using the C-arm. 19.8 seconds fluoroscopy time.. FINDINGS:Again there is anterior | | plate and screw fusion C4-6. On the lateral image, a probe is seen posterior to C3-4, | | with retractors posterior to C4-C6. IMPRESSION: 1. Probe posterior to the C3-4 level, | | with fusion C4-6. | |TECHNIQUE: | |AP, lateral intraoperative images of the cervical spine using the C-arm. 19.8 seconds fluor oscopy time.. | | | |FINDINGS: | |Again there is anterior plate and screw fusion C4-6. On the lateral image, a probe is seen posterior to C3-4, with retractors posterior to C4-C6. | | | |IMPRESSION: | |1. Probe posterior to the C3-4 level, with fusion C4-6. | | | | | + + documented in this encounter Visit Diagnoses Not on filedocumented in this encounter"
--- OUTSIDE RECORDS SUMMARY | ~2019-05-05 | XMS | Encounter Summary ---
Demographics + + + | Address | [address] | | | [place] [address] | + + + | Home Phone [...] [place] | | | | | [address] | | + + + + + Care Team Providers + +------+ + | Care Fitness And Wellness Instructor Name | Role | Phone | + +------+ + | Davis Ivan MD | PCP | | + +------+ + Encounter Details +--------+ + + + + | Date | Type | Department | Care Team | Description | +--------+ + + + + | 05/11/ | Hospital | [facility] | Offenstein, | Pulmonary abscess | | 2012 | Encounter | MED CTR XRAY [address] | Ayana Looney MD | ([facility]) | | | | [place] | | | | | | [place] [address] | | | | | | [phone] | | | +--------+ + + + [...] | 2019 | Visit | | [facility] [address] | | | | | | [facility] | | | | | | [place] [address] | | | | | | [phone] | | | | | | | | +--------+ + + + + | 06/08/ | Office | Physical Medicine | Rocky Santos, | | | 2019 | Visit | and Rehabilitation | MD [address] | | | | | | [place] | | | | | | [address] | | | | | | | | +--------+ + + + + | 06/16/ | Appointment | Pulmonology | Eveline Jaffe | | | 2019 | | | MD [address] | | | | | | [address] [place] | | | | | | [place] [address] | | | | | | [phone] | | | | | | | | +--------+ + + + + | 06/16/ | Office | Pulmonology | Eveline Jaffe | | | 2019 | Visit | | MD [address] | | | | | | [address] [place] | | | | | | [place] [address] | | | | | | [phone] | | | | | | | | +--------+ + + + + | 08/24/ | Office | Cardiology | Anisha Lopez DO | | | 2019 | Visit | | [address] | | | | | | [place] | | | | | | [address] | | | | | | | [...] Performed At | + + + | [facility] | WARD | | Department [address] [place] [address] | [facility] | | [ rep [address]] [ rep [facility] | | [facility]] Signed | - IMAGING | | | | | Patient Name: THEA CARMONA Physician: | | | : 1945 Age: 67 Sex: F Unit #: [id number] | | | Exam Date: 05/11/13 [place] [facility] | | | Report #: [id number] Page: | | | %(RAD)RES..mtdd.print.filter("pg") of %(RAD) | | | RES..mtdd.print.filter("tpg") | | | | | | Accession Number: [id number] | | | CHEST X-RAY CLINICAL HISTORY: [...] Transcribed Date/Time: 05/11/2013 | | | 13:38 Manpower Development Specialist Manager: HENRIQUE <<Signature | | | on File>> | | | Matheus | | | MD Kang05/11/13 1420 <Electronically signed by Matheus Kapadia MD> | | | Matheus Kapadia MD 05/11/13 1328 Manpower Development Specialist Manager: [employer] | | | [id number]/11/13 0561 Ayana Taylor MD | | | | | + + + + + + + + | Performing | Address | City/State/Zipcode | Phone Number | | Organization | | | | + + + + + | [facility] | [address] | [place] | [phone] | | [facility] | | [address] | | | - IMAGING | | | | + + + + + documented in this encounter Visit Diagnoses + + | Diagnosis | + + | Pulmonary abscess (HCC) Abscess of lung | + + documented in this encounter
--- OUTSIDE RECORDS SUMMARY | ~2019-05-05 | XMS | Encounter Summary ---
Demographics + + + | Address | [address] | | | [place] [address] | + + + | Home Phone [...] [place] | | | | | [address] | | + + + + + Care Team Providers + +------+ + | Care Solar Installer Technician Name | Role | Phone | [...] [place], | | | | | | [place] [address] | | | | | | [phone] | | | +--------+ + + + [...] | | | | | [place] [address] | | | | | | [phone] | | | | | | | | +--------+ + + + + | 06/08/ | Office | Physical Medicine | Rocky Santos, | | | 2019 | Visit | and Rehabilitation | MD [address] | | | | | | [place] | | | | | | [address] | | | | | | | | +--------+ + + + + | 06/16/ | Appointment | Pulmonology | Eveline Jaffe | | 2019 | | | MD [address] | | | | | | [place] | | | | | | [place] [address] | | | | | | [phone] | | | | | | | | +--------+ + + + + | 06/16/ | Office | Pulmonology | Eveline Jaffe | | | 2019 | Visit | | MD Raul [address] | | | | | | [place] | | | | | | [place] [address] | | | | | | [phone] | | | | | | | | +--------+ + + + + | 08/24/ | Office | Cardiology | Anisha Lopez DO | | | 2019 | Visit | | [address] | | | | | | [place] | | | | | | [address] | | | | | | | | +--------+ + + + + documented as of this encounter Visit Diagnoses Not on filedocumented in this encounter"
--- OUTSIDE RECORDS SUMMARY | ~2019-05-05 | XMS | Encounter Summary ---
Demographics + + + | Address | [address] | | | [place] [address] | + + + | Home Phone [...] [place] | | | | | [address] | | + + + + + Care Team Providers + +------+ + | Care Brick Wheeler Name | Role | Phone | + [...] | | Cough | [place], | [address] | | | | | Procedures | Ayana B, | [place], | | | | | CT Chest w | MD [address] | [place] [address] | | | | | Contrast | [address] | Phone: | | | | | | [place], | [phone] | | | | | | [place] [address] | Fax: | | | | | | | [phone] | +--------+--------+ + + + + Reason [...] + + | 08/29/ | Hospital | [facility] | Offenstein, | Cough | | 2014 | Encounter | MED CTR [address] | Ayana Looney MD | | | | | [place], | | | | | | [place] [address] | | | | | | [phone] | | | +--------+ + + + [...] | 2018 | Visit | | MINI [address] | | | | | | [facility] | | | | | | [place] [address] | | | | | | [phone] | | | | | | | | +--------+ + + + + | 06/08/ | Office | Physical Medicine | Rocky Santos, | | | 2019 | Visit | and Rehabilitation | MD [address] | | | | | | [place] | | | | | | [address] | | | | | | | | +--------+ + + + + | 06/16/ | Appointment | Pulmonology | Eveline Jaffe | | | 2019 | | | MD [address] | | | | | | [address] [place] | | | | | | [place] [address] | | | | | | [phone] | | | | | | | | +--------+ + + + + | 06/16/ | Office | Pulmonology | Eveline Jaffe | | | 2019 | Visit | | MD [address] | | | | | | [address] [place] | | | | | | [place] [address] | | | | | | [phone] | | | | | | | | +--------+ + + + + | 08/24/ | Office | Cardiology | Anisha Lopez DO | | | 2019 | Visit | | [address] | | | | | | [place] | | | | | | [address] | | | | | | | [...] and XRT, known recurrent lung cancer COMPARISON: [facility] | | radiographs August 24 and [...] ST[address] | [address] | [place] | [phone] | | [facility] | | [address] | | | - IMAGING | | [...]
--- OUTSIDE RECORDS SUMMARY | ~2019-05-05 | XMS | Encounter Summary ---
Demographics + + + | Address | [address] | | | [place] [address] | + + + | Home Phone [...] [place] | | | | | [address] | | + + + + + Care Team Providers + +------+ + | Care Health Underwriter Name | Role | Phone | + +------+ + | Caitlin Chino MD | PCP | | + +------+ + Reason for Visit + + + | Reason | Comments | + + + | Follow-up | Follow Up Right Hand Finger- *discuss Options* | + + + Encounter Details +--------+---------+ + + + | Date | Type | Department | Care Team | Description | +--------+---------+ + + + | 09/06/ | Office | [facility] | Giuliano Padilla, | Trigger finger of | | 2019 | Visit | ORTHOPEDIC SURGERY | MD [address] [place] [address] | left thumb (Primary | | | | [address] [facility] | [place] | Dx); Trigger finger, | | | | [place] | [address] | left ring finger; | | | | [address] | | Trigger middle | | | | [phone] | | finger of left hand | +--------+---------+ + + [...] encounter Progress Notes Giuliano Padilla MD - 09/06/2018 2:45 PM PDTPatient returns follow up left hand thumb, angela g and ring trigger fingers The previous shots didn't help enough to want to do it again She very much wishes to proceed with trigger finger releases On exam she has reproducible triggering of the thumb, the long and the ring fingers left cintron nd We discussed the risks of surgery and reasonable expectations for recovery and she wishes t o schedule documented i n this encounter Plan of [...] | | | | | [place] [address] | | | | | | [phone] | | | | | | | | +--------+ + + + + | 06/08/ | Office | Physical Medicine | Rocky Santos, | | | 2019 | Visit | and Rehabilitation | MD [address] | | | | | | [place] | | | | | | [address] | | | | | | | | +--------+ + + + + | 06/16/ | Appointment | Pulmonology | Eveline Jaffe | | 2019 | | | MD [address] | | | | | | [place] | | | | | | [place] [address] | | | | | | [phone] | | | | | | | | +--------+ + + + + | 06/16/ | Office | Pulmonology | Ld Eveline | | | 2019 | Visit | | MD Raul [address] | | | | | | [place] | | | | | | [place] [address] | | | | | | [phone] | | | | | | | | +--------+ + + + + | 08/24/ | Office | Cardiology | Anisha Lopez DO | | | 2019 | Visit | | [address] | | | | | | [place] | | | | | | [address] | | | | | | | [...]
--- OUTSIDE RECORDS SUMMARY | ~2019-05-05 | XMS | Encounter Summary ---
Demographics + + + | Address | [address] | | | [place] [address] | + + + | Home Phone [...] [place] | | | | | [address] | | + + + + + Care Team Providers + +------+ + | Care Hall Porter Name | Role | Phone | + +------+ + PCP | Unavailable | + +------+ + Encounter Details +--------+ + + + + | Date | Type | Department | Care Team | Description | +--------+ + + + + | 01/13/ | Hospital | [facility] | Conversion | | | 2012 | Encounter | CENTER [facility] | Transaction, | | | | | CLINIC [address] | Provider Unknown | | | | | [address] [place], [place] | | | | | | [address] | | | | | | [phone] | | | +--------+ + + + [...] | | | | | [place] [address] | | | | | | [phone] | | | | | | | | +--------+ + + + + | 06/08/ | Office | Physical Medicine | Rocky Santos, | | | 2019 | Visit | and Rehabilitation | MD [address] | | | | | | [place] | | | | | | [address] | | | | | | | | +--------+ + + + + | 06/16/ | Appointment | Pulmonology | Eveline Jaffe | | 2019 | | | MD [address] | | | | | | [place] | | | | | | [place] [address] | | | | | | [phone] | | | | | | | | +--------+ + + + + | 06/16/ | Office | Pulmonology | Eveline Jaffe | | | 2019 | Visit | | MD Raul [address] | | | | | | [place] | | | | | | [place] [address] | | | | | | [phone] | | | | | | | | +--------+ + + + + | 08/24/ | Office | Cardiology | Anisha Lopez DO | | | 2019 | Visit | | [address] | | | | | | [place] | | | | | | [address] | | | | | | | [...] EXTERNAL LAB | | Testing performed at [address];[place] [address] MRSA PCR | | | NEGATIVE Testing performed at | | | [address];[place] [address] | | + + + + +---------+ + + | Performing | Address | City/State/Zipcode | Phone Number | | Organization | | | | + +---------+ + + | EXTERNAL LAB | | | | + +---------+ + + documented in this encounter Visit Diagnoses Not on filedocumented in this encounter"
--- OUTSIDE RECORDS SUMMARY | ~2019-05-05 | XMS | Encounter Summary ---
Demographics + + + | Address | [address] | | | [place] [address] | + + + | Home Phone [...] [place] | | | | | [address] | | + + + + + Care Team Providers + +------+ + | Care Reed Dipper Name | Role | Phone | + +------+ + | Caitlin Chino MD | PCP | | + +------+ + Encounter Details +--------+ + + + + | Date | Type | Department | Care Team | Description | +--------+ + + + + | 12/20/ | Hospital | [facility] | Vivian, | No Show | | 2015 | Encounter | MED CTR CHEMO | Lokesh Gramajo MD [address] | | | | | INFUSION [address] | [address] [place] | | | | | [place], | [place] [address] | | | | | [place] [address] | [phone] | | | | | [phone] | | | +--------+ + + + [...] | | | | | [place] [address] | | | | | | [phone] | | | | | | | | +--------+ + + + + | 06/08/ | Office | Physical Medicine | Rocky Santos, | | | 2019 | Visit | and Rehabilitation | MD [address] | | | | | | [place] | | | | | | [address] | | | | | | | | +--------+ + + + + | 06/16/ | Appointment | Pulmonology | Eveline Jaffe | | 2019 | | | MD [address] | | | | | | [place] | | | | | | [place] [address] | | | | | | [phone] | | | | | | | | +--------+ + + + + | 06/16/ | Office | Pulmonology | Eveline Jaffe | | | 2019 | Visit | | MD Raul [address] | | | | | | [place] | | | | | | [place] [address] | | | | | | [phone] | | | | | | | | +--------+ + + + + | 08/24/ | Office | Cardiology | Anisha Lopez DO | | | 2019 | Visit | | [address] | | | | | | [place] | | | | | | [address] | | | | | | | | +--------+ + + + + documented as of this encounter Visit Diagnoses Not on filedocumented in this encounter"
--- OUTSIDE RECORDS SUMMARY | ~2019-05-05 | XMS | Encounter Summary ---
Demographics + + + | Address | [address] | | | [place] [address] | + + + | Home Phone [...] [place] | | | | | [address] | | + + + + + Care Team Providers + +------+ + | Care Supervisor Painting Shipyard Name | Role | Phone | + [...] + + | 10/11/ | Office | [facility] [place] | [place], | Cough; Squamous cell | | 2014 | Visit | PULMONARY [address] | Ayana Looney MD | lung cancer, | | | | [place], | | unspecified | | | | [place] [address] | | laterality (HCC); | | | | [phone] | | COPD (chronic | | | [...] with the records from the events at [facility] and [facility], I would agree that an endoscopy would [...] last radiation treatment. She was admitted to [facility]. She was treated with 3 days of: [...] Date COPD (chronic obstructive pulmonary disease) ([facility]) on albuterol Spondylolisthesis of cervical region Spinal stenosis has tried cortisone injections Osteoporosis Depression Pneumonia 2009 hospitalized 5 days Rheumatoid arthritis(714.0) ([facility]) on prednisone and methotrexate, Dr. 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 60 tablet 1 Respiratory Therapy Supplies [facility] ResMed S9 auto CPAP 5-9 [...] in clinic today. Chest CT scan from [facility] was reviewed. This shows resolution of right [...] made to ensure accuracy; however, inadvertent computerized visual associate errors may be pre sent. documented [...] | | | | | [place] [address] | | | | | | [phone] | | | | | | | | +--------+ + + + + | 06/08/ | Office | Physical Medicine | Rocky Santos, | | | 2019 | Visit | and Rehabilitation | MD [address] | | | | | | [place] | | | | | | [address] | | | | | | | | +--------+ + + + + | 06/16/ | Appointment | Pulmonology | Eveline Jaffe | | | 2019 | | | MD [address] | | | | | | [place] | | | | | | [place] [address] | | | | | | [phone] | | | | | | | | +--------+ + + + + | 06/16/ | Office | Pulmonology | Eveline Jaffe | | | 2019 | Visit | | MD [address] | | | | | | [place] | | | | | | [place] [address] | | | | | | [phone] | | | | | | | | +--------+ + + + + | 08/24/ | Office | Cardiology | Anisha Lopez DO | | | 2019 | Visit | | [address] | | | | | | [place] | | | | | | [address] | | | | | | | [...]
--- OUTSIDE RECORDS SUMMARY | ~2019-05-05 | XMS | Encounter Summary ---
Demographics + + + | Address | [address] | | | [place] [address] | + + + | Home Phone [...] Providers + +------+ + | Care Cook Roast Name | Role | Phone | + [...] + + | 09/06/ | Office | [facility] | Giuliano Padilla, | Trigger finger of | | 2019 | Visit | ORTHOPEDIC SURGERY | MD [address] [place] [address] | left thumb (Primary | | | | [address] [facility] | [place] | Dx); Trigger finger, | | | | [place] | [address] | left ring finger; | | | | [address] | | Trigger middle | | | | [phone] | | finger of left hand | [...] | | | | | [place] [address] | | | | | | [phone] | | | | | | | | +--------+ + + + + | 06/08/ | Office | Physical Medicine | Rocky Santos, | | | 2019 | Visit | and Rehabilitation | MD [address] | | | | | | [place] | | | | | | [address] | | | | | | | | +--------+ + + + + | 06/16/ | Appointment | Pulmonology | Eveline Jaffe | | 2019 | | | MD [address] | | | | | | [place] | | | | | | [place] [address] | | | | | | [phone] | | | | | | | | +--------+ + + + + | 06/16/ | Office | Pulmonology | Ld Eveline | | | 2019 | Visit | | MD Raul [address] | | | | | | [place] | | | | | | [place] [address] | | | | | | [phone] | | | | | | | | +--------+ + + + + | 08/24/ | Office | Cardiology | Anisha Lopez DO | | | 2019 | Visit | | [address] | | | | | | [place] | | | | | | [address] | | | | | | | [...]
--- OUTSIDE RECORDS SUMMARY | ~2019-05-05 | XMS | Encounter Summary ---
Demographics + + + | Address | [address] | | | [place] [address] | + + + | Home Phone [...] [place] | | | | | [address] | | + + + + + Care Team Providers + +------+ + | Care Identity Management Developer Name | Role | Phone | + +------+ + | Davis Ivan MD | PCP | | + +------+ + Encounter Details +--------+ + + + + | Date | Type | Department | Care Team | Description | +--------+ + + + + | 03/30/ | Hospital | [facility] | Conversion | | | 2012 | Encounter | CENTER [facility] | Transaction, | | | | | CLINIC [address] | Provider Unknown | | | | | [place], [place] | | | | | | [address] | (Fax) | | | | | [phone] | | | +--------+ + + + [...] | 2019 | Visit | | [facility] [address] | | | | | | [facility] | | | | | | [place] [address] | | | | | | [phone] | | | | | | | | +--------+ + + + + | 06/08/ | Office | Physical Medicine | Rocky Santos, | | | 2019 | Visit | and Rehabilitation | MD [address] | | | | | | [place] | | | | | | [address] | | | | | | | | +--------+ + + + + | 06/16/ | Appointment | Pulmonology | Eveline Jaffe | | | 2019 | | | MD [address] | | | | | | [address] [place] | | | | | | [place] [address] | | | | | | [phone] | | | | | | | | +--------+ + + + + | 06/16/ | Office | Pulmonology | Eveline Jaffe | | | 2019 | Visit | | MD [address] | | | | | | [address] [place] | | | | | | [place] [address] | | | | | | [phone] | | | | | | | | +--------+ + + + + | 08/24/ | Office | Cardiology | Anisha Lopez DO | | | 2019 | Visit | | [address] | | | | | | [place] | | | | | | [address] | | | | | | | | +--------+ + + + + documented as of this encounter Procedures + +--------+ + + + | Procedure Name | Priori | Date/Time | Associated Diagnosis | Comments | | | ty | | | | + +--------+ + + + | MRSA NAAT | Timed | 03/30/2013 | | Results for this | | | | 2:48 PM | | procedure are in the | | | | PDT | | results section. | + +--------+ + + + documented in this encounter Results MRSA NAAT (03/30/2013 2:48 PM PDT) + + | Specimen | + + | | + + + + + | Narrative | Performed At | + + + | [facility] | EXTERNAL LAB | | Testing performed at [facility];[address] [place] [address];[place] [address] MRSA PCR | | | NEGATIVE Testing performed at | | | [address];[place] [address] | | + + + + +---------+ + + | Performing | Address | City/State/Zipcode | Phone Number | | Organization | | | | + +---------+ + + | EXTERNAL LAB | | | | + +---------+ + + documented in this encounter Visit Diagnoses Not on filedocumented in this encounter"
--- OUTSIDE RECORDS SUMMARY | ~2019-05-05 | XMS | Encounter Summary ---
Demographics + + + | Address | [address] | | | [place] [address] | + + + | Home Phone [...] [place] | | | | | [address] | | + + + + + Care Team Providers + +------+ + | Care Pet Caretaker Name | Role | Phone | + +------+ + | Davis Ivan MD | PCP | | + +------+ + Encounter Details +--------+ + + + + | Date | Type | Department | Care Team | Description | +--------+ + + + + | 11/09/ | Hospital | [facility] | Vivian, | Recurrent squamous | | 2015 | Encounter | MED CTR CHEMO | Lokesh Gramajo MD [address] | cell carcinoma of | | | | INFUSION [address] | [address] [place] | lung, unspecified | | | | [facility], | [place] [address] | laterality (HCC) | | | | [place] [address] | [phone] | | | | | [phone] | | | +--------+ + + + [...] | | | | | [place] [address] | | | | | | [phone] | | | | | | | | +--------+ + + + + | 06/08/ | Office | Physical Medicine | Rocky Santos, | | | 2019 | Visit | and Rehabilitation | [address] | | | | | | [place] | | | | | | [address] | | | | | | | | +--------+ + + + + | 06/16/ | Appointment | Pulmonology | Eveline Jaffe | | | 2019 | | | MD Nichole Carter | | | | | | [address] [place] | | | | | | [place], [place] [address] | | | | | | [phone] | | | | | | | | +--------+ + + + + | 06/16/ | Office | Pulmonology | Eveline Jaffe | | | 2019 | Visit | | MD Nichole Carter [address] | | | | | | [address] [place] | | | | | | [place] [address] | | | | | | [phone] | | | | | | | | +--------+ + + + + | 08/24/ | Office | Cardiology | Anisha Lopez DO | | | 2019 | Visit | | [address] | | | | | | [place] | | | | | | [address] | | | | | | | [...]
--- OUTSIDE RECORDS SUMMARY | ~2019-05-05 | XMS | Encounter Summary ---
Demographics + + + | Address | [address] | | | [place] [address] | + + + | Home Phone [...] [place] | | | | | [address] | | + + + + + Care Team Providers + +------+ + | Care Recovery Collector Name | Role | Phone | [...] | | Pneumonia, | Offenstein, | [address] [place] | | | | | unspecified | Ayana B, | [place], | | | | | organism | MD [address] | [place] [address] | | | | | Malignant | [address] | Phone: | | | | | neoplasm of | [place], | [phone] | | | | | unspecified | [place] [address] | Fax: | | | | | part of | | [phone] | | | | | right | [...] | | Pneumonia, | Offenstein, | [address] [place] | | | | | unspecified | Ayana B, | [place], | | | | | organism | MD [address] | [place] [address] | | | | | Malignant | [address] | Phone: | | | | | neoplasm of | [place], | [phone] | | | | | unspecified | [place] [address] | Fax: | | | | | part of | | [phone] | | | | | right | [...] + + | 11/29/ | Hospital | [facility] | Offenstein, | Recurrent squamous | | 2016 | Encounter | MED CTR CT [address] | Ayana Looney MD | cell carcinoma of | | | | [place], | | lung, right (HCC); | | | | [place] [address] | | Recurrent pneumonia | | | | [phone] | | | +--------+ + + + [...] | | | | | [facility] | | | | | | [place] [address] | | | | | | [phone] | | | | | | | | +--------+ + + + + | 06/08/ | Office | Physical Medicine | Rocky Santos, | | | 2019 | Visit | and Rehabilitation | [address] | | | | | | [place] | | | | | | [id number] | | | | | | | | +--------+ + + + + | 06/16/ | Appointment | Pulmonology | Eveline Jaffe | | | 2019 | | | MD Nichole Carter [address] | | | | | | [address] [place] | | | | | | [place] [address] | | | | | | [phone] | | | | | | | | +--------+ + + + + | 06/16/ | Office | Pulmonology | Eveline Jaffe | | | 2019 | Visit | | MD Nichole Carter | | | | | | [address] [place] | | | | | | [place] [address] | | | | | | [phone] | | | | | | | | +--------+ + + + + | 08/24/ | Office | Cardiology | Anisha Lopez DO | | 2019 | Visit | | [address] | | | | | | [place] | | | | | | [address] | | | | | | | [...] ST. | [address] | [place] | [phone] | | [facility] | | [address] | | | - IMAGING | | | | + + + + + documented in this encounter Visit Diagnoses + + | Diagnosis | + + | Recurrent squamous cell carcinoma of lung, right (HCC) | + + | Recurrent pneumonia Pneumonia, organism unspecified | + + documented in this encounter
--- OUTSIDE RECORDS SUMMARY | ~2019-05-05 | XMS | Encounter Summary ---
Demographics + + + | Address | [address] | | | [place] [address] | + + + | Home Phone [...] Author | [facility] | | | and [place] | + + + | Organization | [facility] | [...] [place] | | | | | [address] | | + + + + + Care Team Providers + +------+ + | Care Spinning Mule Tender Name | Role | Phone | + +------+ + | Davis Ivan MD | PCP | | + +------+ + Reason for Visit +---------+ + | Reason | Comments | +---------+ + | Results | Ct results | +---------+ + Encounter Details +--------+ + + + + | Date | Type | Department | Care Team | Description | +--------+ + + + + | 09/06/ | Telephone | [facility] | Claudia, | Results (Ct results) | | 2014 | | PULMONARY [address] | Ayana Looney MD | | | | | [place], | | | | | | [place] [address] | | | | | | [phone] | | | +--------+ + + + [...] W | | | | | | [facility] | | | | | | [place] [address] | | | | | | [phone] | | | | | | | | +--------+ + + + + | 06/08/ | Office | Physical Medicine | Rocky Sanots, | | | 2019 | Visit | and Rehabilitation | MD [address] | | | | | | [place] | | | | | | [address] | | | | | | | | +--------+ + + + + | 06/16/ | Appointment | Pulmonology | Evleine Jaffe | | | 2019 | | | MD Nichole Carter | | | | | | [address] [place] | | | | | | [place] [address] | | | | | | [phone] | | | | | | | | +--------+ + + + + | 06/16/ | Office | Pulmonology | Eveline Jaffe | | | 2019 | Visit | | MD Nichole Carter | | | | | | [address] [place] | | | | | | [place], [place] [address] | | | | | | [phone] | | | | | | | | +--------+ + + + + | 08/24/ | Office | Cardiology | Anisha Lopez DO | | 2019 | Visit | | [address] | | | | | | [place] | | | | | | [address] | | | | | | | | +--------+ + + + + documented as of this encounter Visit Diagnoses Not on filedocumented in this encounter"
--- OUTSIDE RECORDS SUMMARY | ~2019-05-05 | XMS | Encounter Summary ---
Demographics + + + | Address | [address] | | | [place] [address] | + + + | Home Phone [...] [place] | | | | | [address] | | + + + + + Care Team Providers + +------+ + | Care Truckman Name | Role | Phone | + [...] | | | | | Procedures | [address] | | | | | | OFFICE VISIT | Phone: | | | | | | REGULAR | [phone] | | | | | | | Fax: | | | | | | | [phone] | | +--------+--------+ + + + + Encounter Details +--------+---------+ + + + | Date | Type | Department | Care Team | Description | +--------+---------+ + + + | 12/09/ | Office | [facility] [place] | Alfred[place], | COPD (chronic | | 2013 | Visit | PULMONARY [address] | Ayana Looney MD | obstructive | | | | [place], | | pulmonary disease) | | | | [place] [address] | | (Primary Dx); MARCE | | | | [phone] | | (obstructive sleep | | | [...] weakness and debility. She was discharged from physical [facility]. She tries to walk around [...] [place]) on prednisone and methotrexate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 Respiratory Therapy Supplies Adteractive ResMed S9 auto CPAP 5-9 cm H2O. [...] Data: CPAP Data: Dates: 09/27-10/26/13 Machine type: [employer] S9 auto CPAP Home Health Company: In [...] but she is not being active at [facility]. I reviewed medication use today with them. [...] so we can get a feel for wha t it is doing. 3. Sputum culture [...] to ensure accuracy; however, inadvertent computerized non profit director errors may be pre sent. Electronically signed by: Ayana Taylor MD 12/09/2013 14:43 documented in t his encounter Plan of Treatment +--------+ + + + + | Date | Type | Specialty | Care Team | Description | +--------+ + + + + | 05/30/ | Office | Rheumatology | Santosh Sumner, | | | 2018 | Visit | | [address] | | | | | | [facility] | | | | | | [place] [address] | | | | | | [phone] | | | | | | | | +--------+ + + + + | 06/08/ | Office | Physical Medicine | Rocky Santos, | | | 2019 | Visit | and Rehabilitation | MD [address] | | | | | | [place] | | | | | | [address] | | | | | | | | +--------+ + + + + | 06/16/ | Appointment | Pulmonology | Eveline Jaffe | | | 2019 | | | MD Nichole Carter W | | | | | | [address] [place] | | | | | | [place] [address] | | | | | | [phone] | | | | | | | | +--------+ + + + + | 06/16/ | Office | Pulmonology | Eveline Jaffe | | | 2019 | Visit | | MD Nichole Carter W | | | | | | [address] [place] | | | | | | [place] [address] | | | | | | [phone] | | | | | | | | +--------+ + + + + | 08/24/ | Office | Cardiology | Anisha Lopez DO | | | 2019 | Visit | | [address] | | | | | | [place], [place] | | | | | | [address] | | | | | | | [...]
--- OUTSIDE RECORDS SUMMARY | ~2019-05-05 | XMS | Encounter Summary ---
Demographics + + + | Address | [address] | | | [place] [address] | + + + | Home Phone [...] [place] | | | | | [address] | | + + + + + Care Team Providers + +------+ + | Care Drill Operator Name | Role | Phone | + +------+ + PCP | Unavailable | + +------+ + Encounter Details +--------+ + + + + | Date | Type | Department | Care Team | Description | +--------+ + + + + | 10/11/ | Hospital | [facility] | Conversion | Pain | | 2013 | Encounter | CONVERSION [address] | Transaction, | | | | | [address] | Provider Unknown | | | | | [place], [place] | [phone] | | | | | [address] | (Fax) | | | | | [phone] | | | +--------+ + + + [...] | | | | | [place] [address] | | | | | | [phone] | | | | | | | | +--------+ + + + + | 06/08/ | Office | Physical Medicine | Rocky Santos, | | | 2019 | Visit | and Rehabilitation | MD [address] | | | | | | [place] | | | | | | [address] | | | | | | | | +--------+ + + + + | 06/16/ | Appointment | Pulmonology | Eveline Jaffe | | 2019 | | | MD [address]ole [address] | | | | | | [address] | | | | | | [place] [address] | | | | | | [phone] | | | | | | | | +--------+ + + + + | 06/16/ | Office | Pulmonology | Eveline Jaffe | | | 2019 | Visit | | MD Raul [address] | | | | | | [address] | | | | | | [place] [address] | | | | | | [phone] | | | | | | | | +--------+ + + + + | 08/24/ | Office | Cardiology | Anisha Lopez DO | | | 2019 | Visit | | [address] | | | | | | [place] | | | | | | [address] | | | | | | | [...]
--- OUTSIDE RECORDS SUMMARY | ~2019-05-05 | XMS | Encounter Summary ---
Demographics + + + | Address | [address] | | | [place] [address] | + + + | Home Phone [...] [place] | | | | | [address] | | + + + + + Care Team Providers + +------+ + | Care Chargeback Specialist Name | Role | Phone | [...] | | | [place] | | [place] [address] | | | | | finger, left | | Phone: | | | | | index | | [phone] | | | | | finger | | Fax: | | | | | [place] | | [phone] | | | | | finger, left | | | | | | | middle | | | | | | | finger | | | | | | | Procedures | | | | | | | [place] | | | | | | | FINGER | | | | | | | TENDON | | | | | | | [place] | | | | | | | INCISE | | | | | | | FINGER | | | | | | | TENDON | | | | | | | [place] | | | | | | | [...] + + | 12/14/ | Anesthesia | [facility] | Ju[place], | | | 2019 | Event | MED CTR OR INTRA OP | Davis Alvarenga MD | | | | | [address] | [address] | | | | | [place] | [place] | | | | | [address] | [address] | | | | | [phone] | | | +--------+ + + + [...] +----+---+ + + | | 1 | [place] | | | | 2 | 43-degrees [...] | | | | | [place] [address] | | | | | | [phone] | | | | | | | | +--------+ + + + + | 06/08/ | Office | Physical Medicine | Rocky Santos, | | | 2019 | Visit | and Rehabilitation | [address] | | | | | | [place] | | | | | | [address] | | | | | | | | +--------+ + + + + | 06/16/ | Appointment | Pulmonology | Eveline Jaffe | | | 2019 | | | MD Nichole Carter [address] | | | | | | [address] [place] | | | | | | [place] [address] | | | | | | [phone] | | | | | | | | +--------+ + + + + | 06/16/ | Office | Pulmonology | Eveline Jaffe | | | 2019 | Visit | | MD Nichole Carter | | | | | | [address] [place] | | | | | | [place], [place] [address] | | | | | | [phone] | | | | | | | | +--------+ + + + + | 08/24/ | Office | Cardiology | Anisha Lopez DO | | | 2019 | Visit | | [address] | | | | | | [place] | | | | | | [address] | | | | | | | [...]
--- OUTSIDE RECORDS SUMMARY | ~2019-05-05 | XMS | Encounter Summary ---
Demographics + + + | Address | [address] | | | [place] [address] | + + + | Home Phone [...] [place] | | | | | [address] | | + + + + + Care Team Providers + +------+ + | Care Pocket Grinder Operator Name | Role | Phone | [...] + + | 09/04/ | Hospital | [facility] | Jimmy Banegas DO | | | 2015 | Encounter | MED CTR RADIATION | [address] | | | | | ONCOLOGY [address] | [place] | | | | | [place], | [address] | | | | | [place] [address] | | | | | | [phone] | | | +--------+ + + + [...] | | | | | | [place] [address] | | | | | | [phone] | | | | | | | | +--------+ + + + + | 06/08/ | Office | Physical Medicine | Rocky Santos, | | | 2019 | Visit | and Rehabilitation | MD [address] | | | | | | [place] | | | | | | [address] | | | | | | | | +--------+ + + + + | 06/16/ | Appointment | Pulmonology | Eveline Jaffe | | 2019 | | | MD [address] | | | | | | [address] | | | | | | [place] [address] | | | | | | [phone] | | | | | | | | +--------+ + + + + | 06/16/ | Office | Pulmonology | Eveline Jaffe | | | 2019 | Visit | | MD Raul [address] | | | | | | [address] | | | | | | [place] [address] | | | | | | [phone] | | | | | | | | +--------+ + + + + | 08/24/ | Office | Cardiology | Anisha Lopez DO | | | 2019 | Visit | | [address] | | | | | | [place] | | | | | | [address] | | | | | | | | +--------+ + + + + documented as of this encounter Visit Diagnoses Not on filedocumented in this encounter"
--- OUTSIDE RECORDS SUMMARY | ~2019-05-05 | XMS | Encounter Summary ---
Demographics + + + | Address | [address] | | | [place] [address] | + + + | Home Phone [...] [place] | | | | | [address] | | + + + + + Care Team Providers + +------+ + | Care Lab Nurse Name | Role | Phone | + +------+ + | Davis Ivan MD | PCP | | + +------+ + Encounter Details +--------+ + + + + | Date | Type | Department | Care Team | Description | +--------+ + + + + | 03/17/ | Hospital | [facility] | Conversion | | | 2014 | Encounter | [facility] | Transaction, | | | | | [address] | Provider Unknown | | | | | [facility] [place] | | | | | | [address] | (Fax) | | | | | [phone] | | | +--------+ + + + [...] | | | | | [place] [address] | | | | | | [phone] | | | | | | | | +--------+ + + + + | 06/08/ | Office | Physical Medicine | Rocky Santos, | | | 2019 | Visit | and Rehabilitation | MD [address] | | | | | | [place] | | | | | | [address] | | | | | | | | +--------+ + + + + | 06/16/ | Appointment | Pulmonology | Eveline Jaffe | | 2019 | | | MD [address] | | | | | | [address] | | | | | | [place] [address] | | | | | | [phone] | | | | | | | | +--------+ + + + + | 06/16/ | Office | Pulmonology | Eveline Jaffe | | | 2019 | Visit | | MD Raul [address] | | | | | | [address] | | | | | | [place] [address] | | | | | | [phone] | | | | | | | | +--------+ + + + + | 08/24/ | Office | Cardiology | Anisha Lopez DO | | | 2019 | Visit | | [address] | | | | | | [place] | | | | | | [id number] | | | | | | | | +--------+ + + + + documented as of this encounter Visit Diagnoses Not on filedocumented in this encounter"
--- OUTSIDE RECORDS SUMMARY | ~2019-05-05 | XMS | Encounter Summary ---
Demographics + + + | Address | [address] | | | [place] [address] | + + + | Home Phone [...] [place] | | | | | [address] | | + + + + + Care Team Providers + +------+ + | Care Field Service Analyst Name | Role | Phone | [...] + + | 07/28/ | Hospital | [facility] | Chalino Chiu | Recurrent lung | | 2015 | Encounter | MED CTR XRAY [address] | MD Brittanie, FACS [address] | squamous cell | | | | [place] | [address] [place] | carcinoma, | | | | [place] [address] | [place] [address] | unspecified | | | | [phone] | [phone] | laterality (HCC) | | | | [...] | | | | | [place] [address] | | | | | | [phone] | | | | | | | | +--------+ + + + + | 06/08/ | Office | Physical Medicine | Rocky Santos, | | | 2019 | Visit | and Rehabilitation | [address] | | | | | | [place] | | | | | | [address] | | | | | | | | +--------+ + + + + | 06/16/ | Appointment | Pulmonology | Eveline Jaffe | | | 2019 | | | MD Nichole [address] | | | | | | [address] [place] | | | | | | [place] [address] | | | | | | [phone] | | | | | | | | +--------+ + + + + | 06/16/ | Office | Pulmonology | Eveline Jaffe | | | 2019 | Visit | | MD Nichole [address] | | | | | | [address] [place] | | | | | | [place] [address] | | | | | | [phone] | | | | | | | | +--------+ + + + + | 08/24/ | Office | Cardiology | Anisha Lopez DO | | | 2019 | Visit | | [address] | | | | | | [place] | | | | | | [address] | | | | | | | [...] Chart Review. | [facility] | | | [facility] | | | [facility] | | | - IMAGING | + + + + + + + + | Performing | Address | City/State/Zipcode | Phone Number | | Organization | | | | + + + + + | [facility] | [address] | [place] | [phone] | | [facility] | | [address] | | | - IMAGING | | | | + + + + + documented in this encounter Visit Diagnoses + + | Diagnosis | + + | Recurrent lung squamous cell carcinoma, unspecified laterality (HCC) | + + documented in this encounter"
--- OUTSIDE RECORDS SUMMARY | ~2019-05-05 | XMS | Encounter Summary ---
Demographics + + + | Address | [address] | | | [place] [address] | + + + | Home Phone [...] [address] | | | | | [address] | | + + + + + Care Team Providers + +------+ + | Care Diesel Retrofit Installer Name | Role | Phone | + +------+ + PCP | Unavailable | + +------+ + Encounter Details +--------+ + + + + | Date | Type | Department | Care Team | Description | +--------+ + + + + | 01/12/ | Hospital | [facility] | Conversion | Pain | | 2013 | Encounter | CONVERSION [address] | Transaction, | | | | [address] | Provider Unknown | | | | | [place], [place] | [phone] | | | | | [address] | | | | | | [phone] | | | +--------+ + + + [...] | | | | | [place] [address] | | | | | | [phone] | | | | | | | | +--------+ + + + + | 06/08/ | Office | Physical Medicine | Rocky Santos, | | | 2019 | Visit | and Rehabilitation | MD [address] | | | | | | [place] | | | | | | [address] | | | | | | | | +--------+ + + + + | 06/16/ | Appointment | Pulmonology | Eveline Jaffe | | 2019 | | | MD [address] | | | | | | [address] | | | | | | [place] [address] | | | | | | [phone] | | | | | | | | +--------+ + + + + | 06/16/ | Office | Pulmonology | Eveline Jaffe | | | 2019 | Visit | | MD Raul [address] | | | | | | [address] | | | | | | [place] [address] | | | | | | [phone] | | | | | | | | +--------+ + + + + | 08/24/ | Office | Cardiology | Anisha Lopez DO | | | 2019 | Visit | | [address] | | | | | | [place] | | | | | | [address] | | | | | | | [...]
--- OUTSIDE RECORDS SUMMARY | ~2019-05-05 | XMS | Encounter Summary ---
Demographics + + + | Address | [address] | | | [place] [address] | + + + | Home Phone [...] [place] | | | | | [address] | | + + + + + Care Team Providers + +------+ + | Care Fiberglass Tube Molder Name | Role | Phone | + [...] | | | | | laterality, | [address] | [place] [address] | | | | | sequela | [place], | Phone: | | | | | | [place] [address] | [phone] | | | | | | | Fax: | | | | | | | [phone] | +--------+ + + + + + [...] MD | obstructive | | | | [place], | | pulmonary disease) | | | | [place] [address] | | (Primary Dx); | | | | [phone] | | Recurrent squamous | | | [...] COPD (chronic obstructive pulmonary disease) ([facility]) on albuterol Spondylolisthesis of cervical region Spinal stenosis has tried cortisone injections Osteoporosis Depression Pneumonia 2008 hospitalized 5 days Rheumatoid arthritis(714.0) ([facility]) [facility] Hyperlipidemia on simvastatin Hypertension on clonidine and lisinopril Hypothyroidism GERD (gastroesophageal reflux disease) Stroke ([facility]) 2006 Stroke ([facility]) 2008 Squamous cell carcinoma of lung ([facility]) 07/2013 right lower lobe Sputum culture positive for Scopulariopsis species Recurrent squamous cell carcinoma of lung ([facility]) 07/11/[address] and [...] 07/11/2014 EBUS with right hilar LN biopsy, [facility] Dr. 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 LORazepam (ATIVAN) 1 mg tablet Take [...] daily. 60 tablet 3 Respiratory Therapy Supplies [facility] Helixis S9 auto CPAP 5-9 cm H2O. Heater [...] PET scan pending.CT scan do ne at [facility] showed area of enlargement previously seen and [...] as surgery und er local block. * [facility] - [facility] Referral Plan [...] made to ensure accuracy; however, inadvertent computerized christmas tree farm crew boss errors may be pre sent. documented in t his encounter Plan of Treatment +--------+ + + + + | Date | Type | Specialty | Care Team | Description | +--------+ + + + + | 05/30/ | Office | Rheumatology | Santosh Sumner, | | | 2018 | Visit | | [address] | | | | | | [facility] | | | | | | [place] [address] | | | | | | [phone] | | | | | | | | +--------+ + + + + | 06/08/ | Office | Physical Medicine | Rocky Santos, | | | 2019 | Visit | and Rehabilitation | MD Nichole [address] | | | | | | [place] | | | | | | [address] | | | | | | | | +--------+ + + + + | 06/16/ | Appointment | Pulmonology | Eveline Jaffe | | | 2019 | | | MD [address] | | | | | | [address] [place] | | | | | | [place] [address] | | | | | | [phone] | | | | | | | | +--------+ + + + + | 06/16/ | Office | Pulmonology | Eveline Jaffe | | | 2019 | Visit | | MD [address]ole [address] | | | | | | [address] [place] | | | | | | [place] [address] | | | | | | [phone] | | | | | | | | +--------+ + + + + | 08/24/ | Office | Cardiology | Anisha Lopez DO | | | 2019 | Visit | | [address] | | | | | | [place] | | | | | | [address] | | | | | | | [...]
--- OUTSIDE RECORDS SUMMARY | ~2019-05-05 | XMS | Encounter Summary ---
Demographics + + + | Address | [address] | | | [place] [address] | + + + | Home Phone [...] [place] | | | | | [address] | | + + + + + Care Team Providers + +------+ + | Care Lay Out Drafter Name | Role | Phone | + [...] atrial | [address] | | | | | fibrillation | [address] | [place], | | | | | with rapid | [place], | [place] | | | | | ventricular | [place] [address] | [address] | | | | | response | Phone: | Phone: | | | | | ([facility]) Heart | [phone] | [phone] | | | | | | Fax: | Fax: | | | | | palpitations | [phone] | [phone] | | | | | Atrial | | | | | | | fibrillation | | | | | | | with RVR | | | | | | | ([facility]) | | | +--------+ + + + [...] | | | | Trigger | | [place] [address] | | | | | finger, left | | Phone: | | | | | ring finger | | [phone] | | | | | Trigger | | Fax: | | | | | middle | | [phone] | | | | | finger of | | | | | | | left hand | | | | | | | Procedures | | | | | | | [place] [facility] | | | | | | [...] + + | 09/28/ | Emergency | [facility] | Jf Coleman, | Paroxysmal atrial | | 2019 | | MED CTR EMERGENCY | MD [address] | fibrillation with | | | | CENTER [address] | [place], [place] | rapid ventricular | | | | [place], [place] | [address] | response ([facility]) | | | | [address] | | (Primary Dx); Heart | | | | [phone] | | palpitations; Atrial | | | | | | fibrillation with | | | | | | RVR ([facility]) | +--------+ + + + + Social [...] Everywhere.Living with Atr ial Fibrillation: Preventing Stroke (Polish)documented in this encounter Medications at Time of [...] | | | | | | type ([facility]) | | | | | | + [...] | 2018 | Visit | | [address] | | | | | | [facility] | | | | | | [place] [address] | | | | | | [phone] | | | | | | | | +--------+ + + + + | 06/08/ | Office | Physical Medicine | Rocky Santos, | | | 2019 | Visit | and Rehabilitation | MD Varela [address] | | | | | | [place] | | | | | | [address] | | | | | | | | +--------+ + + + + | 06/16/ | Appointment | Pulmonology | Eveline Jaffe | | | 2019 | | | MD [address] | | | | | | [address] [place] | | | | | | [place] [address] | | | | | | [phone] | | | | | | | | +--------+ + + + + | 06/16/ | Office | Pulmonology | Eveline Jaffe | | | 2019 | Visit | | MD [address] | | | | | | [address] [place] | | | | | | [place] [address] | | | | | | [phone] | | | | | | | | +--------+ + + + + | 08/24/ | Office | Cardiology | Anisha Lopez DO | | | 2020 | Visit | | [address] | | | | | | [place] | | | | | | [address] | | | | | | | [...] | | | | DIANA SMART MD ([id number]) | | | | | | on [...] + | [facility] | [address] | [place] | [phone] | | [facility] | | [address] | | | - LABORATORY | | [...] + | [facility] | [address] | [place] | [phone] | | [facility] | | [address] | | | - LABORATORY | | [...] | | | | | | [employer] | | | | | [...] + | [facility] | [address] | [place] | [phone] | | [facility] | | [address] | | | - LABORATORY | | [...] | mL/min/1.73m2 | [facility] | | | [place]ITT[place]IAN | RATE,ESTIMATED | | MEDICAL | | | | mL/min/1.57e8Kovc than | | CENTER - | | [...] | 9.7 | 8.7 - 10.4 | [facility] | | | | | mg/dL | [facility] | | | | | | MEDICAL | | | | | | CENTER - | | | | | | LABORATORY | | + + + + + + | Albumin | 4.1 | 3.2 - 4.8 g/dL | [facility] | | | | | | ST. [...] [address] | [place] | [phone] | | [facility] | | [address] | | | - LABORATORY | | [...] | [facility] | [address] | [place] | [phone] | | [facility] | | [address] | | | - LABORATORY | | [...] | | | | DIANA SMART MD ([id number]) | | | | | | on [...]
--- OUTSIDE RECORDS SUMMARY | ~2019-05-05 | XMS | Encounter Summary ---
Demographics + + + | Address | [address] | | | [place] [address] | + + + | Home Phone | | + + + | Preferred Language | Unknown | + + + | Marital Status | | + + + | Quaker Affiliation | Unknown | + + + | Race | Unknown | + + + | Ethnic Group | Unknown | + + + Author + + + | Author | [facility] | | | and [place] | + + + | Organization | [facility] | | [...] [place] | | | | | [address] | | + + + + + Care Team Providers + +------+ + | Care Cardiovascular Tech Name | Role | Phone | [...] + + | 08/28/ | Hospital | [facility] | Adelita Lu MD | 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 | | | | INFUSION [address] | [place], [place] | lung, unspecified | | | | [place], | [address] | laterality (HCC); | | | | [place] [address] | [phone] | Pulmonary nodules | | | | [phone] | | | +--------+ + + + [...] | | | | | [place] [address] | | | | | | [phone] | | | | | | | | +--------+ + + + + | 06/08/ | Office | Physical Medicine | Rocky Santos, | | | 2019 | Visit | and Rehabilitation | [address] | | | | | | [place] | | | | | | [address] | | | | | | | | +--------+ + + + + | 06/16/ | Appointment | Pulmonology | Eveline Jaffe | | | 2019 | | | MD [address] | | | | | | [address] [place] | | | | | | [place] [address] | | | | | | [phone] | | | | | | | | +--------+ + + + + | 06/16/ | Office | Pulmonology | Eveline Jaffe | | | 2019 | Visit | | MD Nichole Carter | | | | | | [address] [place] | | | | | | [place] [address] | | | | | | [phone] | | | | | | | | +--------+ + + + + | 08/24/ | Office | Cardiology | Anisha Lopez DO | | | 2019 | Visit | | [address] | | | | | | [place] | | | | | | [address] | | | | | | | [...] + + + + | WBC | 4.2 | 4.0 - 11.0 K/uL | [facility] | | | [facility] | [facility] | | | | | | CENTER - | | | | | | LABORATORY | | + + + + + + | RBC | 3.67 (L) | 3.70 - 5.20 [...] + | [facility] | [address] | [place] | [phone] | | [facility] | | [address] | | | - LABORATORY | | [...] | | FILTRATION | mL/min/1.73m2 | [facility] | | | ARMENIAN | RATE,ESTIMATED | | MEDICAL | | | | mL/min/1.15e7Agki than | | CENTER - | | [...] 0.8 | 0.1 - 1.5 mg/dL | [facility] | | | Total | | | [...] [address] | [place] | [phone] | | [facility] | | [address] | | | - LABORATORY | | [...]
--- OUTSIDE RECORDS SUMMARY | ~2019-05-05 | XMS | Encounter Summary ---
Demographics + + + | Address | [address] | | | [place] [address] | + + + | Home Phone [...] [place] | | | | | [address] | | + + + + + Care Team Providers + +------+ + | Care Tool Maintenance Technician Name | Role | Phone | [...] + + + + | 03/20/ | Telephone | [facility] [place] | Alfredenstein, | Other (CPAP) | | 2013 | | PULMONARY [address] | Ayana Looney MD | | | | | [place], | | | | | | [place] [address] | | | | | | [phone] | | | +--------+ + + + [...] | | | | | [place] [address] | | | | | | [phone] | | | | | | | | +--------+ + + + + | 06/08/ | Office | Physical Medicine | Rocky Santos, | | | 2019 | Visit | and Rehabilitation | [address] | | | | | | [place] | | | | | | [address] | | | | | | | | +--------+ + + + + | 06/16/ | Appointment | Pulmonology | Eveline Jaffe | | 2019 | | | MD [address] | | | | | | [address] [place] | | | | | | [place], [place] [address] | | | | | | [phone] | | | | | | | | +--------+ + + + + | 06/16/ | Office | Pulmonology | Eveline Jaffe | | | 2019 | Visit | | MD [address] | | | | | | [address] [place] | | | | | | [place] [address] | | | | | | [phone] | | | | | | | | +--------+ + + + + | 08/24/ | Office | Cardiology | Anisha Lopez DO | | 2019 | Visit | | [address] | | | | | | [place] | | | | | | [address] | | | | | | | | +--------+ + + + + documented as of this encounter Visit Diagnoses Not on filedocumented in this encounter"
--- OUTSIDE RECORDS SUMMARY | ~2019-05-05 | XMS | Encounter Summary ---
Demographics + + + | Address | [address] | | | [place] [address] | + + + | Home Phone [...] [place] | | | | | [address] | | + + + + + Care Team Providers + +------+ + | Care Hr Administrative Assistant Name | Role | Phone | + +------+ + | Davis Ivan MD | PCP | | + +------+ + Encounter Details +--------+ + + + + | Date | Type | Department | Care Team | Description | +--------+ + + + + | 11/06/ | Hospital | [facility] | Gurmeet Vargas | Bronchogenic cancer | | 2017 | Encounter | MED CTR XRAY [address] | MD [address] | of right lung (HCC) | | | | [place] | [address] [place] | | | | | [place] [address] | [place] [address] | | | | | [phone] | [phone] | | | | | | | [...] | | | | | | type ([facility]) | | | | | [...] | | | | | [place] [address] | | | | | | [phone] | | | | | | | | +--------+ + + + + | 06/08/ | Office | Physical Medicine | Rocky Santos, | | | 2019 | Visit | and Rehabilitation | MD [address] | | | | | | [place] | | | | | | [address] | | | | | | | | +--------+ + + + + | 06/16/ | Appointment | Pulmonology | Eveline Jaffe | | | 2019 | | | MD Nichole Carter | | | | | | [address] [place] | | | | | | [place] [address] | | | | | | [phone] | | | | | | | | +--------+ + + + + | 06/16/ | Office | Pulmonology | Eveline Jaffe | | | 2019 | Visit | | MD Raul [address] | | | | | | [address] [place] | | | | | | [place] [address] | | | | | | [phone] | | | | | | | | +--------+ + + + + | 08/24/ | Office | Cardiology | Anisha Lopez DO | | | 2019 | Visit | | [address] | | | | | | [place] | | | | | | [address] | | | | | | | [...] the | | | | PDT | ([facility]) | results section. | + +--------+ [...] 10/29/[address] chest 11/30/2015. | [facility] | | FINDINGS: Frontal and [...] [address] | [place] | [phone] | | [facility] | | [address] | | | - IMAGING | | | | + + + + + documented in this encounter Visit Diagnoses + + | Diagnosis | + + | Bronchogenic cancer of right lung (HCC) | + + documented in this encounter"
--- OUTSIDE RECORDS SUMMARY | ~2019-05-05 | XMS | Encounter Summary ---
Demographics + + + | Address | [address] | | | [place] [address] | + + + | Home Phone [...] [place] | | | | | [address] | | + + + + + Care Team Providers + +------+ + | Care Oracle Programmer Analyst Name | Role | Phone | + +------+ + | Davis Ivan MD | PCP | | + +------+ + Reason for Visit +---------+ + | Reason | Comments | +---------+ + | Results | overnight oximetry | +---------+ + Encounter Details +--------+ + + + + | Date | Type | Department | Care Team | Description | +--------+ + + + + | 05/08/ | Telephone | [facility] [place] | Offenstein, | Results (overnight | | 2013 | | PULMONARY [address] | Ayana Looney MD | oximetry) | | | | [place], | | | | | | [place] [address] | | | | | | [phone] | | | +--------+ + + + [...] W | | | | | | [facility] | | | | | | [place] [address] | | | | | | [phone] | | | | | | | | +--------+ + + + + | 06/08/ | Office | Physical Medicine | Rocky Santos, | | | 2019 | Visit | and Rehabilitation | [address] | | | | | | [place] | | | | | | [address] | | | | | | | | +--------+ + + + + | 06/16/ | Appointment | Pulmonology | Eveline Jaffe | | | 2019 | | | MD [address] | | | | | | [address] [place] | | | | | | [place], [place] [address] | | | | | | [phone] | | | | | | | | +--------+ + + + + | 06/16/ | Office | Pulmonology | Eveline Jaffe | | | 2019 | Visit | | MD [address] | | | | | | [address] [place] | | | | | | [place] [address] | | | | | | [phone] | | | | | | | | +--------+ + + + + | 08/24/ | Office | Cardiology | Anisha Lopez DO | | | 2019 | Visit | | [address] | | | | | | [place] | | | | | | [address] | | | | | | | | +--------+ + + + + documented as of this encounter Visit Diagnoses Not on filedocumented in this encounter"
--- OUTSIDE RECORDS SUMMARY | ~2019-05-05 | XMS | Encounter Summary ---
Demographics + + + | Address | [address] | | | [place] [address] | + + + | Home Phone [...] [place] | | | | | [address] | | + + + + + Care Team Providers + +------+ + | Care Workers Compensation Claims Supervisor Name | Role | Phone | [...] | 10/07/ | Telephone | [facility] | Adelita Lu MD | Other | | 2013 | | MED CTR MEDICAL | [address] [facility] | | | | | ONCOLOGY CLINIC [address] | [place] | | | | | [facility] | [address] | | | | | [place] [address] | [phone] | | | | | [phone] | | | +--------+ + + + [...] W | | | | | | [facility] | | | | | | [place] [address] | | | | | | [phone] | | | | | | | | +--------+ + + + + | 06/08/ | Office | Physical Medicine | Rocky Santos, | | | 2019 | Visit | and Rehabilitation | [address] | | | | | | [place] | | | | | | [address] | | | | | | | | +--------+ + + + + | 06/16/ | Appointment | Pulmonology | Eveline Jaffe | | | 2019 | | | MD [address] | | | | | | [address] [place] | | | | | | [place] [address] | | | | | | [phone] | | | | | | | | +--------+ + + + + | 06/16/ | Office | Pulmonology | Eveline Jaffe | | | 2019 | Visit | | MD [address] | | | | | | [address] [place] | | | | | | [place], [place] [address] | | | | | | [phone] | | | | | | | | +--------+ + + + + | 08/24/ | Office | Cardiology | Anisha Lopez DO | | | 2019 | Visit | | [address] | | | | | | [place] | | | | | | [address] | | | | | | | | +--------+ + + + + documented as of this encounter Visit Diagnoses Not on filedocumented in this encounter"
--- OUTSIDE RECORDS SUMMARY | ~2019-05-05 | XMS | Encounter Summary ---
Demographics + + + | Address | [address] | | | [place] [address] | + + + | Home Phone [...] [place] | | | | | [address] | | + + + + + Care Team Providers + +------+ + | Care Car Refinisher Name | Role | Phone | + [...] | | | | | | [place] [address] | | | | | | [phone] | | | +--------+ + + + [...] | 05/30/ | Office | Rheumatology | Santohs Sumner, | | | 2018 | Visit | | [address] | | | | | | [place] | | | | | | [place] [address] | | | | | | [phone] | | | | | | | | +--------+ + + + + | 06/08/ | Office | Physical Medicine | Rocky Santos, | | | 2019 | Visit | and Rehabilitation | [address] | | | | | | [place] | | | | | | [address] | | | | | | | | +--------+ + + + + | 06/16/ | Appointment | Pulmonology | Eveline Jaffe | | 2019 | | | MD [address] | | | | | | [address] [place] | | | | | | [place], [place] [address] | | | | | | [phone] | | | | | | | | +--------+ + + + + | 06/16/ | Office | Pulmonology | Eveline Jaffe | | | 2019 | Visit | | MD [address]ole [address] | | | | | | [address] [place] | | | | | | [place] [address] | | | | | | [phone] | | | | | | | | +--------+ + + + + | 08/24/ | Office | Cardiology | Anisha Lopez DO | | 2019 | Visit | | [address] | | | | | | [place] | | | | | | [address] | | | | | | | | +--------+ + + + + documented as of this encounter Visit Diagnoses Not on filedocumented in this encounter"
--- OUTSIDE RECORDS SUMMARY | ~2019-05-05 | XMS | Encounter Summary ---
Demographics + + + | Address | [address] | | | [place] [address] | + + + | Home Phone [...] [place] | | | | | [address] | | + + + + + Care Team Providers + +------+ + | Care Arboriculture Instructor Name | Role | Phone | + +------+ + | Davis Ivan MD | PCP | | + +------+ + Encounter Details +--------+ + + + + | Date | Type | Department | Care Team | Description | +--------+ + + + + | 11/01/ | Hospital | [facility] | Rodney Worthy | Left shoulder pain, | | 2019 | Encounter | MED CTR [place] XRAY | MD [address] | unspecified | | | | [address] [place] | [address] [place] | chronicity; Right | | | | [place] | [place] [address] | shoulder pain, | | | | [address] | [phone] | unspecified | | | | [phone] | | chronicity; | | | | [...] | | | | | [place] [address] | | | | | | [phone] | | | | | | | | +--------+ + + + + | 06/08/ | Office | Physical Medicine | Rocky Santos, | | | 2019 | Visit | and Rehabilitation | [address] | | | | | | [place] | | | | | | [address] | | | | | | | | +--------+ + + + + | 06/16/ | Appointment | Pulmonology | Eveline Jaffe | | 2019 | | | MD [address] | | | | | | [address] | | | | | | [place] [address] | | | | | | [phone] | | | | | | | | +--------+ + + + + | 06/16/ | Office | Pulmonology | Eveline Jaffe | | | 2019 | Visit | | MD Raul [address] | | | | | | [address] [place] | | | | | | [place] [address] | | | | | | [phone] | | | | | | | | +--------+ + + + + | 08/24/ | Office | Cardiology | Anisha Lopez DO | | | 2019 | Visit | | [address] | | | | | | [place] | | | | | | [address] | | | | | | | [...] + + | Performing | Address | City/State/[place] [facility] | Phone Number | | Organization [...]
--- OUTSIDE RECORDS SUMMARY | ~2019-05-05 | XMS | Encounter Summary ---
Demographics + + + | Address | [address] | | | [place] [address] | + + + | Home Phone [...] [place] | | | | | [address] | | + + + + + Care Team Providers + +------+ + | Care Air Valve Repairer Name | Role | Phone | + +------+ + | Davis Ivan MD | PCP | | + +------+ + Reason for Visit +--------+ + | Reason | Comments | +--------+ + | Other | question | +--------+ + Encounter Details +--------+ + + + + | Date | Type | Department | Care Team | Description | +--------+ + + + + | 08/02/ | Telephone | [facility] [place] | Alfredenstein, | Other (question) | | 2013 | | PULMONARY [address] | Ayana Looney MD | | | | | [place], | | | | | | [place] [address] | | | | | | [phone] | | | +--------+ + + + [...] | | | | | [place] [address] | | | | | | [phone] | | | | | | | | +--------+ + + + + | 06/08/ | Office | Physical Medicine | Rocky Santos, | | | 2019 | Visit | and Rehabilitation | MD [address] | | | | | | [place] | | | | | | [address] | | | | | | | | +--------+ + + + + | 06/16/ | Appointment | Pulmonology | Eveline Jaffe | | 2019 | | | MD [address] | | | | | | [place] | | | | | | [place] [address] | | | | | | [phone] | | | | | | | | +--------+ + + + + | 06/16/ | Office | Pulmonology | Eveline Jaffe | | 2019 | Visit | | MD Raul [address] | | | | | | [place] | | | | | | [place] [address] | | | | | | [phone] | | | | | | | [...]
--- OUTSIDE RECORDS SUMMARY | ~2019-05-05 | XMS | Encounter Summary ---
Demographics + + + | Address | [address] | | | [place] [address] | + + + | Home Phone [...] [place] | | | | | [address] | | + + + + + Care Team Providers + +------+ + | Care French Lecturer Name | Role | Phone | + +------+ + | Davis Ivan MD | PCP | | + +------+ + Encounter Details +--------+ + + + + | Date | Type | Department | Care Team | Description | +--------+ + + + + | 03/30/ | Hospital | [facility] | Offenstein, | Pulmonary nodule | | 2012 | Encounter | MED [facility] LABORATORY | Ayana Looney MD | | | | | [address] | | | | | | [place] | | | | | | [address] | | | | | | [phone] | | | +--------+ + + + [...] encounter Progress Notes Ayana Taylor MD - 04/05/2013 7:15 PM PST Quick Note: Please let the patient know their lab results are normal, except they are growing a fungus in their sputum, not yet typed out what it is. documented in this encounter Plan of Treatment [...] | | | | | [place] [address] | | | | | | [phone] | | | | | | | | +--------+ + + + + | 06/08/ | Office | Physical Medicine | Rocky Santos, | | | 2019 | Visit | and Rehabilitation | MD Varela [address] | | | | | | [place] | | | | | | [address] | | | | | | | | +--------+ + + + + | 06/16/ | Appointment | Pulmonology | Eveline Jaffe | | | 2019 | | | MD [address] | | | | | | [address] [place] | | | | | | [place] [address] | | | | | | [phone] | | | | | | | | +--------+ + + + + | 06/16/ | Office | Pulmonology | Eveline Jaffe | | | 2019 | Visit | | MD [address] | | | | | | [address] [place] | | | | | | [place] [address] | | | | | | [phone] | | | | | | | | +--------+ + + + + | 08/24/ | Office | Cardiology | Anisha Lopez DO | | | 2019 | Visit | | [address] | | | | | | [place] | | | | | | [address] | | | | | | | | +--------+ + + + + documented as of this encounter Procedures + +--------+ + + + | Procedure Name | Priori | Date/Time | Associated Diagnosis | Comments | | | ty | | | | + +--------+ + + + | VITALIY, FUNGUS | Routin | 03/30/2013 | Pulmonary nodule | Results for this | | | e | 1:45 PM | | procedure are in the | | | | PDT | | results section. | + +--------+ + + + | COCCIDIOIDES | Routin | 03/30/2013 | Pulmonary nodule | Results for this | | ANTIBODY | e | 1:20 PM | | procedure are in the | | | | PDT | | results section. | + +--------+ + + + | QUANTIFERON GOLD | Routin | 03/30/2013 | Pulmonary nodule | Results for this | | | e | 1:20 PM | | procedure are in the | | | | PDT | | results section. | + +--------+ + + + | HISTOPLASMA AB, | Routin | 03/30/2013 | Pulmonary nodule | Results for this | | PANEL | e | 1:20 PM | | procedure are in the | | | | PDT | | results section. | + +--------+ + + + | ASPERGILLUS AB, | Routin | 03/30/2013 | Pulmonary nodule | Results for this | | TOTAL | e | 1:20 PM | | procedure are in the | | | | PDT | | results section. | + +--------+ + + + documented in this encounter Results Culture, Fungus (03/30/2013 1:45 PM PDT) + + + + + + | Component | Value | Ref Range | Performed | Pathologist | | | | | At | Signature | + + + + + + | CULTURE | SENT FUNGUS (4+ GROWTH) | | [facility] | | | FUNGAL | TO REFERENCE LAB TO | | [facility] | | | WOUND | ID.Sent out for | | MEDICAL | | | | confirmation and | | CENTER - | | | | ID.Final results | | LABORATORY | | | | pending. | | | | + + + + + + | Organism | NEENA ALBICANS | | [facility] | | | Type | | | [...] YELLOW MUCOID | [facility] | | | [facility] | | | [facility] | | | - LABORATORY | + + + + + + + + | Performing | Address | City/State/Zipcode | Phone Number | | Organization | | | | + + + + + | [facility] | [address] | [place] | [phone] | | [facility] | | [address] | | | - LABORATORY | | | | + + + + + | [facility] | [address] | [place] | | | [facility] | | [address] | | | - LABORATORY | | [...] | GOLD TB | | | [facility] | | | | | | [...] by: | | | | | | [facility], | | | | | | [address] | | | | | | [place] | | | | | | [address] | | | | + + + + + + + + | Specimen | + + | Blood specimen | | (specimen) | + + + + + + + | Performing | Address | City/State/Zipcode | Phone Number | | Organization | | | | + + + + + | [facility] | [address] | [place] | [phone] | | [facility] | | [address] | | | - LABORATORY | | | | + + + + + | [facility] | [address] | [place], [place] | | | [facility] | | [address] | | | - LABORATORY | | [...] 500 | | | | | | [facility] | | | | | | [facility] [id number] CLIA: | | | | | | [id number] | | | | + + + + + + + + | Specimen | + + | Blood specimen | | (specimen) | + + + + + + + | Performing | Address | City/State/Zipcode | Phone Number | | Organization | | | | + + + + + | [facility] | [address] | [place] | [phone] | | [facility] | | [address] | | | - LABORATORY | | | | + + + + + | [facility] | [address] | [place] | | | [facility] | | [address] | | | - LABORATORY | | [...] 500 | | | | | | [facility] | | | | | | [facility] [id number] CLIA: | | | | | | [id number] | | | | + + + + + + + + | Specimen | + + | Blood specimen | | (specimen) | + + + + + + + | Performing | Address | City/State/Zipcode | Phone Number | | Organization | | | | + + + + + | [facility] | [address] | [place] | [phone] | | [facility] | | [address] | | | - LABORATORY | | | | + + + + + | [facility] | 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 | [address] | [place], [place] | [phone] | | [facility] | | [address] | | | - LABORATORY | | | | + + + + + | [facility] | [address] | [place], [place] | | | [facility] | | [address] | | | - LABORATORY | | | | + + + + + documented in this encounter Visit Diagnoses + + | Diagnosis | + + | Pulmonary nodule Solitary pulmonary nodule | + + documented in this encounter
--- OUTSIDE RECORDS SUMMARY | ~2019-05-05 | XMS | Encounter Summary ---
Demographics + + + | Address | [address] | | | [place] [address] | + + + | Home Phone [...] [place] | | | | | [address] | | + + + + + Care Team Providers + +------+ + | Care Deep Sea Diver Name | Role | Phone | + [...] | | neoplasm of | [address] | Services [address] | | | | | bronchus and | [place] | [address] | | | | | lung, | [place], [place] | [place], | | | | | unspecified | [address] | [place] [address] | | | | | site | Phone: | Phone: | | | | | | [phone] | [phone] | | | | | | Fax: | Fax: | | | | | | [phone] | [phone] | +--------+ + + + + + Reason for Visit + + + | Reason | Comments | + + + | IDT Note | | + + + Encounter Details +--------+ + + + + | Date | Type | Department | Care Team | Description | +--------+ + + + + | 07/26/ | Telephone | [facility] | Sujata Baca, | IDT Note | | 2014 | | MED CTR CHEMO | RN | | | | | INFUSION [address] | | | | | | [place], | | | | | | [place] [address] | | | | | | [phone] | | | +--------+ + + + [...] | | | | | [place] [address] | | | | | | [phone] | | | | | | | | +--------+ + + + + | 06/08/ | Office | Physical Medicine | Rocky Santos, | | | 2019 | Visit | and Rehabilitation | MD [address] | | | | | | [place] | | | | | | [address] | | | | | | | | +--------+ + + + + | 06/16/ | Appointment | Pulmonology | Eveline Jaffe | | 2019 | | | MD [address] | | | | | | [address] [place] | | | | | | [place] [address] | | | | | | [phone] | | | | | | | | +--------+ + + + + | 06/16/ | Office | Pulmonology | Eveline Jaffe | | | 2019 | Visit | | MD [address] | | | | | | [address] [place] | | | | | | [place] [address] | | | | | | [phone] | | | | | | | | +--------+ + + + + | 08/24/ | Office | Cardiology | Anisha Lopez DO | | | 2019 | Visit | | [address] | | | | | | [place] | | | | | | [address] | | | | | | | [...]
--- OUTSIDE RECORDS SUMMARY | ~2019-05-05 | XMS | Encounter Summary ---
Demographics + + + | Address | [address] | | | [place] [address] | + + + | Home Phone [...] [place] | | | | | [address] | | + + + + + Care Team Providers + +------+ + | Care Commercial Leasing Manager Name | Role | Phone | [...] + + | 05/05/ | Refill | [facility] | Vivian, | Medication Refill | | 2015 | | MED CTR MEDICAL | Lokesh Gramajo MD [address] | | | | | ONCOLOGY CLINIC [address] | [facility] | | | | | W [facility] | [place] [address] | | | | | [place] [address] | [phone] | | | | | [phone] | | | +--------+--------+ + + + [...] | | | | | [place] [address] | | | | | | [phone] | | | | | | | | +--------+ + + + + | 06/08/ | Office | Physical Medicine | Rocky Santos, | | | 2019 | Visit | and Rehabilitation | [address] | | | | | | [place] | | | | | | [address] | | | | | | | | +--------+ + + + + | 06/16/ | Appointment | Pulmonology | Eveline Jaffe | | | 2019 | | | MD [address] | | | | | | [address] [place] | | | | | | [place] [address] | | | | | | [phone] | | | | | | | | +--------+ + + + + | 06/16/ | Office | Pulmonology | Eveline Jaffe | | | 2019 | Visit | | MD [address] | | | | | | [address] [place] | | | | | | [place] [address] | | | | | | [phone] | | | | | | | | +--------+ + + + + | 08/24/ | Office | Cardiology | Anisha Lopez DO | | | 2019 | Visit | | [address] | | | | | | [place] | | | | | | [address] | | | | | | | | +--------+ + + + + documented as of this encounter Visit Diagnoses + + | Diagnosis | + + | Gastroesophageal reflux disease without esophagitis - Primary Esophageal reflux | + + documented in this encounter"
--- OUTSIDE RECORDS SUMMARY | ~2019-05-05 | XMS | Encounter Summary ---
Demographics + + + | Address | [address] | | | [place] [address] | + + + | Home Phone [...] [place] | | | | | [address] | | + + + + + Care Team Providers + +------+ + | Care Mixing Machine Attendant Name | Role | Phone | [...] [place] | | | | | [phone] | [place] [address] | | +--------+ + + + + [...] | | | | | [place] [address] | | | | | | [phone] | | | | | | | | +--------+ + + + + | 06/08/ | Office | Physical Medicine | Rocky Santos, | | | 2019 | Visit | and Rehabilitation | MD [address] | | | | | | [place] | | | | | | [address] | | | | | | | | +--------+ + + + + | 06/16/ | Appointment | Pulmonology | Eveline Jaffe | | 2019 | | | MD [address] | | | | | | [address] | | | | | | [place] [address] | | | | | | [phone] | | | | | | | | +--------+ + + + + | 06/16/ | Office | Pulmonology | Eveline Jaffe | | | 2019 | Visit | | MD Raul [address] | | | | | | [address] | | | | | | [place] [address] | | | | | | [phone] | | | | | | | | +--------+ + + + + | 08/24/ | Office | Cardiology | Anisha Lopez DO | | | 2019 | Visit | | [address] | | | | | | [place] | | | | | | [address] | | | | | | | [...]
--- OUTSIDE RECORDS SUMMARY | ~2019-05-05 | XMS | Encounter Summary ---
Demographics + + + | Address | [address] | | | [place] [address] | + + + | Home Phone [...] [place] | | | | | [address] | | + + + + + Care Team Providers + +------+ + | Care Line Camera Operator Name | Role | Phone | [...] + + | 11/29/ | Hospital | [facility] | Offenstein, | Pharyngeal dysphagia | | 2016 | Encounter | MED CTR XRAY [address] | Ayana Looney MD | (Primary Dx); | | | | [place] | Latrice Haas | Recurrent pneumonia; | | | | [place] [address] | M, Speech | Oropharyngeal | | | | [phone] | Pathologist [address] | dysphagia | | | | | [address] [place] | | | | | | [place] [address] | | | | | | [phone] | | | | | | | [...] 05/30/ | Office | Rheumatology | Santosh Sumner | | | 2018 | Visit | | [address] [address] | | | | | | [address] [address] | | | | | | [place] [address] | | | | | | [phone] | | | | | | | | +--------+ + + + + | 06/08/ | Office | Physical Medicine | Rocky Santos, | | | 2019 | Visit | and Rehabilitation | MD [address] | | | | | | [place] | | | | | | [address] | | | | | | | | +--------+ + + + + | 06/16/ | Appointment | Pulmonology | Eveline Jaffe | | 2019 | | | MD [address] | | | | | | [address] | | | | | | [place] [address] | | | | | | [phone] | | | | | | | | +--------+ + + + + | 06/16/ | Office | Pulmonology | Eveline Jaffe | | | 2019 | Visit | | MD Raul [address] | | | | | | [address] | | | | | | [place] [address] | | | | | | [phone] | | | | | | | | +--------+ + + + + | 08/24/ | Office | Cardiology | Anisha Lopez DO | | | 2019 | Visit | | [address] | | | | | | [place] | | | | | | [address] | | | | | | | [...] ESOPHAGRAM SEPTEMBER 2014 TECHNIQUE: In the | [facility] | | upright position, the patient [...] | + + + + + | [facility] | [address] | [place] | [phone] | | [facility] | | [address] | | | - IMAGING | | [...]
--- OUTSIDE RECORDS SUMMARY | ~2019-05-05 | XMS | Encounter Summary ---
Demographics + + + | Address | [address] | | | [place] [address] | + + + | Home Phone [...] [place] | | | | | [address] | | + + + + + Care Team Providers + +------+ + | Care Structural Ironworker Name | Role | Phone | + [...] + + | 09/19/ | [facility]ill | [facility] | Adelita Lu MD | Medication Refill | | 2014 | | MED CTR MEDICAL | [address] [facility] | | | | | ONCOLOGY CLINIC [address] | [place] | | | | | [address] | [address] | | | | | [place] [address] | [phone] | | | | | [phone] | | | +--------+--------+ + + + [...] | 2018 | Visit | | [address] [address] | | | | | | [facility] | | | | | | [place] [address] | | | | | | [phone] | | | | | | | | +--------+ + + + + | 06/08/ | Office | Physical Medicine | Rocky Santos, | | | 2019 | Visit | and Rehabilitation | [address] | | | | | | [place] | | | | | | [address] | | | | | | | | +--------+ + + + + | 06/16/ | Appointment | Pulmonology | Eveline Jaffe | | 2019 | | | MD [address] | | | | | | [address] [place] | | | | | | [place] [address] | | | | | | [phone] | | | | | | | | +--------+ + + + + | 06/16/ | Office | Pulmonology | Eveline Jaffe | | 2019 | Visit | | MD [address] | | | | | | [address] [place] | | | | | | [place] [address] | | | | | | [phone] | | | | | | | | +--------+ + + + + | 08/24/ | Office | Cardiology | Anisha Lopez DO | | 2019 | Visit | | [address] | | | | | | [place] | | | | | | [address] | | | | | | | | +--------+ + + + + documented as of this encounter Visit Diagnoses + + | Diagnosis | + + | Squamous cell lung cancer, unspecified laterality (HCC) - Primary | + + documented in this encounter"
--- OUTSIDE RECORDS SUMMARY | ~2019-05-05 | XMS | Encounter Summary ---
Demographics + + + | Address | [address] | | | [place] [address] | + + + | Home Phone [...] [place] | | | | | [address] | | + + + + + Care Team Providers + +------+ + | Care Beater And Pulper Feeder Name | Role | Phone | [...] + | 10/24/ | Refill | [facility] | Jimmy Banegas DO | Medication Refill | | 2014 | | MED CTR RADIATION | [address] | | | | | ONCOLOGY [address] | [place] | | | | | [place], | [address] | | | | | [place] [address] | | | | | | [phone] | | | +--------+--------+ + + + [...] | 2018 | Visit | | [address] | | | | | | [facility] | | | | | | [place] [address] | | | | | | [phone] | | | | | | | | +--------+ + + + + | 06/08/ | Office | Physical Medicine | Rocky Santos, | | | 2019 | Visit | and Rehabilitation | [address] | | | | | | [place] | | | | | | [address] | | | | | | | | +--------+ + + + + | 06/16/ | Appointment | Pulmonology | Eveline Jaffe | | | 2019 | | | MD [address] | | | | | | [address] [place] | | | | | | [place] [address] | | | | | | [phone] | | | | | | | | +--------+ + + + + | 06/16/ | Office | Pulmonology | Eveline Jaffe | | | 2019 | Visit | | MD [address] | | | | | | [address] [place] | | | | | | [place] [address] | | | | | | [phone] | | | | | | | | +--------+ + + + + | 08/24/ | Office | Cardiology | Anisha Lopez DO | | | 2019 | Visit | | [address] | | | | | | [place] | | | | | | [address] | | | | | | | | +--------+ + + + + documented as of this encounter Visit Diagnoses Not on filedocumented in this encounter"
--- OUTSIDE RECORDS SUMMARY | ~2019-05-05 | XMS | Encounter Summary ---
Demographics + + + | Address | [address] | | | [place] [address] | + + + | Home Phone [...] [place] | | | | | [address] | | + + + + + Care Team Providers + +------+ + | Care Sanitation Worker Cleaning Equipment Name | Role | Phone | + [...] Malignant | MD Adelita | [address] | | | | | neoplasm of | [address] | [place], | | | | | main | [address] | [place] | | | | | bronchus, | [place], | [address] | | | | | right (HCC) | [place] | Phone: | | | | | Procedures | [address] | [phone] | | | | | MRI Brain w | Phone: | Fax: | | | | | wo Contrast | [phone] | [phone] | | | | | | Fax: | | | | | | | [phone] | | +--------+--------+ + + + + [...] Malignant | MD Adelita | [address] | | | | | neoplasm of | [address] | [place], | | | | | main | [address] | [place] | | | | | bronchus, | [place], | [address] | | | | | right (HCC) | [place] | Phone: | | | | | Procedures | [address] | [phone] | | | | | MRI Brain w | Phone: | Fax: | | | | | wo Contrast | [phone] | [phone] | | | | | | Fax: | | | | | | | [phone] | | +--------+--------+ + + + + Encounter Details +--------+ + + + + | Date | Type | Department | Care Team | Description | +--------+ + + + + | 09/02/ | Hospital | [facility] | Adelita Lu MD | 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 [address] | [address] | of main bronchus, | | | | [address] [place], | [place], [place] | right (HCC) (Primary | | | | [place] [address] | [address] | Dx); Squamous cell | | | | [phone] | [phone] | carcinoma of lung, | | | [...] | | | | | [place] [address] | | | | | | [phone] | | | | | | | | +--------+ + + + + | 06/08/ | Office | Physical Medicine | Rocky Santos, | | | 2019 | Visit | and Rehabilitation | MD [address] | | | | | | [place] | | | | | | [address] | | | | | | | | +--------+ + + + + | 06/16/ | Appointment | Pulmonology | Eveline Jaffe | | 2019 | | | MD [address] | | | | | | [address] | | | | | | [place] [address] | | | | | | [phone] | | | | | | | | +--------+ + + + + | 06/16/ | Office | Pulmonology | Eveline Jaffe | | | 2019 | Visit | | MD Raul [address] | | | | | | [address] | | | | | | [place] [address] | | | | | | [phone] | | | | | | | | +--------+ + + + + | 08/24/ | Office | Cardiology | Anisha Lopez DO | | | 2019 | Visit | | [address] | | | | | | [place] | | | | | | [id number] | | | | | | | [...] | 0.97 | 0.60 - 1.30 | [facility] | | | | | [...] mL/min/1.73m2 | [facility] | | | [facility] | RATE,ESTIMATED | | MEDICAL | | | | mL/min/1.40z7Snvk than | | CENTER - | | [...] + | [facility] | [address] | [place], [place] | [phone] | | [facility] | | [address] | | | - LABORATORY | | | | + + + + + | [facility] | [address] | [place], [place] | | | [facility] | | [address] | | | - LABORATORY | | [...] + | [facility] | [address] | [place] | [phone] | | [facility] | | [address] | | | - LABORATORY | | | | + + + + + | [facility] | [address] | [place] | | | [facility] | | [address] | | | - LABORATORY | | [...] + | MISCELLANEOUS LAB | | | [phone] | + +---------+ + + | MISCELANIOUS LAB | | | [phone] | + +---------+ + + documented in [...]
--- OUTSIDE RECORDS SUMMARY | ~2019-05-05 | XMS | Encounter Summary ---
Demographics + + + | Address | [address] | | | [place] [address] | + + + | Home Phone [...] [place] | | | | | [address] | | + + + + + Care Team Providers + +------+ + | Care Cutting Tool Sharpener Name | Role | Phone | + +------+ + | Davis Ivna MD | PCP | | + +------+ + Reason for Visit +--------+ + | Reason | Comments | +--------+ + | Other | | +--------+ + Encounter Details +--------+ + + + + | Date | Type | Department | Care Team | Description | +--------+ + + + + | 09/14/ | Telephone | [facility] | Adelita Lu MD | Other | | 2013 | | MED CTR MEDICAL | [address] [facility] | | | | | ONCOLOGY CLINIC [address] | [place] | | | | | [facility] | [address] | | | | | [place] [address] | [phone] | | | | | [phone] | | | +--------+ + + + [...] W | | | | | | [facility] | | | | | | [place] [address] | | | | | | [phone] | | | | | | | | +--------+ + + + + | 06/08/ | Office | Physical Medicine | Rocky Santos, | | | 2019 | Visit | and Rehabilitation | [address] | | | | | | [place] | | | | | | [address] | | | | | | | | +--------+ + + + + | 06/16/ | Appointment | Pulmonology | Eveline Jaffe | | | 2019 | | | MD [address] | | | | | | [address] [place] | | | | | | [place] [address] | | | | | | [phone] | | | | | | | | +--------+ + + + + | 06/16/ | Office | Pulmonology | Eveline Jaffe | | | 2019 | Visit | | MD [address] | | | | | | [address] [place] | | | | | | [place], [place] [address] | | | | | | [phone] | | | | | | | | +--------+ + + + + | 08/24/ | Office | Cardiology | Anisha Lopez DO | | | 2019 | Visit | | [address] | | | | | | [place] | | | | | | [address] | | | | | | | | +--------+ + + + + documented as of this encounter Visit Diagnoses Not on filedocumented in this encounter"
--- OUTSIDE RECORDS SUMMARY | ~2019-05-05 | XMS | Encounter Summary ---
Demographics + + + | Address | [address] | | | [place] [address] | + + + | Home Phone [...] [place] | | | | | [address] | | + + + + + Care Team Providers + +------+ + | Care Outreach Team Member Name | Role | Phone | + [...] [place] | | | | | | [address] | | | | | | [phone] | | | +--------+ + + + [...] | | | | | [facility] | | | | | | [place] [address] | | | | | | [phone] | | | | | | | | +--------+ + + + + | 06/08/ | Office | Physical Medicine | Rocky Santos, | | | 2019 | Visit | and Rehabilitation | MD Varela W [address] Landis | | | | | | [place] | | | | | | [address] | | | | | | | | +--------+ + + + + | 06/16/ | Appointment | Pulmonology | Eveline Jaffe | | | 2019 | | | MD Nichole Carter W | | | | | | [address] | | | | | | [place] [address] | | | | | | [phone] | | | | | | | | +--------+ + + + + | 06/16/ | Office | Pulmonology | Eveline Jaffe | | | 2019 | Visit | | MD Nichole Carter | | | | | | [address] | | | | | | [place] [address] | | | | | | [phone] | | | | | | | | +--------+ + + + + | 08/24/ | Office | Cardiology | Anisha Lopez DO | | | 2019 | Visit | | [address] | | | | | | [place] | | | | | | [phone] | | | | | | | | +--------+ + + + + documented as of this encounter Visit Diagnoses Not on filedocumented in this encounter"
--- OUTSIDE RECORDS SUMMARY | ~2019-05-05 | XMS | Encounter Summary ---
Demographics + + + | Address | [address] | | | [place] [address] | + + + | Home Phone [...] [place] | | | | | [address] | | + + + + + Care Team Providers + +------+ + | Care Adolescent Coordinator Name | Role | Phone | [...] + + | 09/06/ | Hospital | [facility] | Adelita Lu MD | Recurrent squamous | | 2015 | Encounter | MED CTR MED[facility] | [address] | cell carcinoma of | | | | ONCOLOGY CLINIC [address] | [place] | lung, unspecified | | | | [address] [place] | [address] | laterality (HCC) | | | | [place] [address] | [phone] | (Primary Dx) | | | | [phone] | | | +--------+ + + + [...] 09/06/2014 9:35 AM PDT Hem-Onc Progress Note [facility] Patient name:Thea Carmona : 1945 Age: 69 y.o. CSN: [id number] Date of Service: 09/06/2014 Identifying Statement: Thea Carmona is a 69 y.o. female from [facility] with clinical stage II, non-small [...] biopsy by interventional radiology at [facility] of the right lung massshows squamous cell [...] dysphagia, or tinnitus. Has dry mouth, someti mtes has trouble swallowing. Cardiovascular: Reports shortness of [...] CENTER) on prednisone and methotrexate, Dr. Lewis, [place] Hyperlipidemia on simvastatin Hypertension on clonidine and lisinopril Hypothyroidism GERD (gastroesophageal reflux disease) Stroke ([facility]) 2006 Stroke ([facility]) 2007 Squamous cell carcinoma [facility] lung [facility] [...] mg by mouth Daily. RESPIRATORY THERAPY SUPPLIES [facility] ResMed S9 auto CPAP 5-9 cm H2O. Heater and Humidifier . All necessary supplies. AHI 11.6. Diagnosis Code(s)327.23, also has co morbid hypertension , history of stroke. Length of Need 99 months. Please send order to [facility]. RESPIRATORY THERAPY SUPPLIES [employer] Resp[employer] autotitrating CPAP at 5-9 cm H2O [...] this chart may have been created with [employer] voice recognition software. Occasi onal wrong-word or [...] | 2018 | Visit | | [address]I [address] | | | | | | [facility] | | | | | | [place] [address] | | | | | | [phone] | | | | | | | | +--------+ + + + + | 06/08/ | Office | Physical Medicine | Rocky Santos, | | | 2019 | Visit | and Rehabilitation | MD Nichole Hinds [address] | | | | | | [place] | | | | | | [address] | | | | | | | | +--------+ + + + + | 06/16/ | Appointment | Pulmonology | Eveline Jaffe | | | 2019 | | | MD Nichole Carter [address] | | | | | | [address] [place] | | | | | | [place] [address] | | | | | | [phone] | | | | | | | | +--------+ + + + + | 06/16/ | Office | Pulmonology | Eveline Jaffe | | | 2019 | Visit | | MD Nichole Carter | | | | | | [address] [place] | | | | | | [place] [address] | | | | | | [phone] | | | | | | | | +--------+ + + + + | 08/24/ | Office | Cardiology | Anisha Lopez DO | | | 2019 | Visit | | [address] | | | | | | [place] | | | | | | [address] | | | | | | | | +--------+ + + + + documented as of this encounter Visit Diagnoses + + | Diagnosis | + + | Recurrent squamous cell carcinoma of lung, unspecified laterality (HCC) - Primary | + + documented in this encounter
--- OUTSIDE RECORDS SUMMARY | ~2019-05-05 | XMS | Encounter Summary ---
Demographics + + + | Address | [address] | | | [place] [address] | + + + | Home Phone [...] [place] | | | | | [address] | | + + + + + Care Team Providers + +------+ + | Care Collection Technician Name | Role | Phone | [...] + + | 10/27/ | Hospital | [facility] | Giuliano Padilla, | Osteoarthritis of | | 2018 | Encounter | MED CTR OR INTRA OP | MD [address] | first | | | | [address] | [place], [place] | carpometacarpal | | | | [place], [place] | [address] | (CMC) joint of one | | | | [address] | | hand | | | | [phone] | | | +--------+ + + + [...] | | | | | [place] [address] | | | | | | [phone] | | | | | | | | +--------+ + + + + | 06/08/ | Office | Physical Medicine | Rocky Santos, | | | 2019 | Visit | and Rehabilitation | [address] | | | | | | [place] | | | | | | [address] | | | | | | | | +--------+ + + + + | 06/16/ | Appointment | Pulmonology | Eveline Jaffe | | 2019 | | | MD Nichole Carter [address] | | | | | | [address] [place] | | | | | | [place] [address] | | | | | | [phone] | | | | | | | | +--------+ + + + + | 06/16/ | Office | Pulmonology | Eveline Jaffe | | | 2019 | Visit | | MD Nichole Carter [address] | | | | | | [address] [place] | | | | | | [place] [address] | | | | | | [phone] | | | | | | | | +--------+ + + + + | 08/24/ | Office | Cardiology | Anisha Lopez DO | | 2019 | Visit | | [address] | | | | | | [place] | | | | | | [address] | | | | | | | [...]
--- OUTSIDE RECORDS SUMMARY | ~2019-05-05 | XMS | Encounter Summary ---
Demographics + + + | Address | [address] | | | [place] [address] | + + + | Home Phone [...] [place] | | | | | [address] | | + + + + + Care Team Providers + +------+ + | Care Water Taxi Boat Mate Name | Role | Phone | + [...] + + | 05/14/ | Office | [facility] | Gurmeet Vargas | Needs flu shot | | 2016 | Visit | PULMONARY [address] | MD [address] | (Primary Dx); | | | | [place], | [address] [place] | [place] | | | | [place] [address] | [place] [address] | emphysema (HCC); | | | | [phone] | [phone] | Chronic bronchitis, | | | | [...] Gurmeet Vargas MD - 2016 3:07 PM DTO38-lata-oex woman with emphysema and chronic bronchitis from [...] Park. Her lung cancer was resected in [place] in 2012, but was discovered to be [...] | | | | | [place] [address] | | | | | | [phone] | | | | | | | | +--------+ + + + + | 06/08/ | Office | Physical Medicine | Rocky Santos, | | | 2019 | Visit | and Rehabilitation | [address] | | | | | | [place] | | | | | | [address] | | | | | | | | +--------+ + + + + | 06/16/ | Appointment | Pulmonology | Eveline Jaffe | | | 2019 | | | MD Nichole Carter [address] | | | | | | [address] [place] | | | | | | [place] [address] | | | | | | [phone] | | | | | | | | +--------+ + + + + | 06/16/ | Office | Pulmonology | Eveline Jaffe | | | 2019 | Visit | | MD Raul [address] | | | | | | [address] [place] | | | | | | [place] [address] | | | | | | [phone] | | | | | | | | +--------+ + + + + | 08/24/ | Office | Cardiology | Anisha Lopez DO | | | 2019 | Visit | | [address] | | | | | | [place] | | | | | | [address] | | | | | | | [...]
--- OUTSIDE RECORDS SUMMARY | ~2019-05-05 | XMS | Encounter Summary ---
Demographics + + + | Address | [address] | | | [place] [address] | + + + | Home Phone [...] [place] | | | | | [address] | | + + + + + Care Team Providers + +------+ + | Care Residential Roofer Name | Role | Phone | + [...] | | | hand, | | [place] [address] | | | | | unspecified | | Phone: | | | | | osteoarthrit | | [phone] | | | | | is type | | Fax: | | | | | Osteoarthrit | | [phone] | | | | | is of [...] | | | | | | | LA REPAIR | | | | | | | INTERCARP/CA | | | | | | | RP-METACARP | | | | | | | JT | | | +--------+--------+ + + + + Encounter Details +--------+---------+ + + + | Date | Type | Department | Care Team | Description | +--------+---------+ + + + | 03/20/ | Surgery | [facility] | Giuliano Padilla, | Left 1st [facility] | | 2014 | | MED CTR OR INTRA OP | MD Solo [facility] | Arthroplasty | | | | [address] | [place] | | | | | [place] | [address] | | | | | [address] | | | | | | [phone] | | | +--------+---------+ + + + [...] | | | | | [place] [address] | | | | | | [phone] | | | | | | | | +--------+ + + + + | 06/08/ | Office | Physical Medicine | Rocky Santos, | | | 2019 | Visit | and Rehabilitation | MD [address] | | | | | | [place] | | | | | | [address] | | | | | | | | +--------+ + + + + | 06/16/ | Appointment | Pulmonology | Eveline Jaffe | | 2019 | | | MD [address] | | | | | | [address] [place] | | | | | | [place] [address] | | | | | | [phone] | | | | | | | | +--------+ + + + + | 06/16/ | Office | Pulmonology | Eveline Jaffe | | | 2019 | Visit | | MD [address] | | | | | | [address] [place] | | | | | | [place] [address] | | | | | | [phone] | | | | | | | | +--------+ + + + + | 08/24/ | Office | Cardiology | Anisha Lopez DO | | 2019 | Visit | | [address] | | | | | | [place] | | | | | | [address] | | | | | | | [...]
--- OUTSIDE RECORDS SUMMARY | ~2019-05-05 | XMS | Encounter Summary ---
Demographics + + + | Address | [address] | | | [place] [address] | + + + | Home Phone [...] [place] | | | | | [address] | | + + + + + Care Team Providers + +------+ + | Care Loss Control Representative Name | Role | Phone | + +------+ + | Davis Ivan MD | PCP | | + +------+ + Encounter Details +--------+ + + + + | Date | Type | Department | Care Team | Description | +--------+ + + + + | 01/09/ | Hospital | [facility] | Adelita Lu MD | Squamous cell | | 2013 | Encounter | MED CTR MEDICAL | [address] [facility] | carcinoma of lung, | | | | ONCOLOGY CLINIC [address] | [place], [place] | stage II, right | | | | [facility] | [address] | (HCC) (Primary Dx); | | | | [place] [address] | [phone] | Squamous cell | | | | [phone] | | carcinoma of lung, | | [...] 01/09/2014 4:19 PM PDT Hem-Onc Progress Note [facility] Patient name:Thea Carmona : 1945 Age: 68 y.o. CSN: [id number] Date of Service: 01/09/2014 Identifying Statement: Thea Carmona is a 68 y.o. female from [facility] with clinical stage II, pathologic [...] by Dr. Mace , thoracic surgeon at [facility] for consideration of broncho scopy, [...] She fariba t to the ER at [facility] with excrutiating arthritis pain. Past Medical History: Past Medical History Diagnosis Date COPD (chronic obstructive pulmonary disease) ([facility]) on albuterol Spondylolisthesis of cervical region Spinal stenosis has tried cortisone injections Osteoporosis Depression Pneumonia 2009 hospitalized 5 days Rheumatoid arthritis(714.0) ([facility]) on prednisone and methotrexate, Dr. Lewis [place] Hyperlipidemia on simvastatin Hypertension on clonidine and lisinopril Hypothyroidism GERD (gastroesophageal reflux disease) Stroke ([facility]) 2006 [address]roke ([facility]) 2007 Squamous cell carcinoma of lung ([facility]) 07/2013 MARCE (obstructive sleep apnea) AHI [...] by mouth Daily. RESPIRATORY THERAPY SUPPLIES [facility] ResMed S9 auto CPAP 5-9 cm H2O. Heater and Humidifier . All necessary supplies. AHI 11.6. Diagnosis Code(s)327.23, also has co morbid hypertension , history of stroke. Length of Need 99 months. Please send order to [facility]. RESPIRATORY THERAPY SUPPLIES [facility] Respironics autotitrating CPAP at 5-9 cm H2O [...] a followup CT scan set up in [facility] in 6 month s Followup after that Total time face to face discussion with the patient and family was 20 minutes, more than 5 0% of the time was spent counseling and coordination of care. Adelita Lu MD Portions of this chart may have been created with [employer] voice recognition software. Occasi onal wrong-word or [...] She fariba t to the ER at [facility] with excrutiating arthritis pain. They gave her [...] | 2018 | Visit | | [address] | | | | | | [facility] | | | | | | [place] [address] | | | | | | [phone] | | | | | | | | +--------+ + + + + | 06/08/ | Office | Physical Medicine | Rocky Santos, | | | 2019 | Visit | and Rehabilitation | MD Nichole Hind[address] | | | | | | [place] | | | | | | [address] | | | | | | | | +--------+ + + + + | 06/16/ | Appointment | Pulmonology | Eveline Jaffe | | | 2019 | | | MD [address] | | | | | | [address] [place] | | | | | | [place] [address] | | | | | | [phone] | | | | | | | | +--------+ + + + + | 06/16/ | Office | Pulmonology | Eveline Jaffe | | | 2019 | Visit | | MD [address] | | | | | | [address] [place] | | | | | | [place] [address] | | | | | | [phone] | | | | | | | | +--------+ + + + + | 08/24/ | Office | Cardiology | Anisha Lopez DO | | | 2019 | Visit | | [address] | | | | | | [place] | | | | | | [address] | | | | | | | [...] | | | FILTRATION | mL/min/1.73m2 | [facility] | | | MACEDONIAN | RATE,ESTIMATED | | MEDICAL | | | | mL/min/1.23t1Rvot than | | CENTER - | | [...] | | | | | mg/dL | [facility] | | | | | | MEDICAL | | | | | | CENTER - | | | | | | LABORATORY | | + + + + + + | Albumin | 3.1 (L) | 3.2 - 5.0 g/dL | [place] | | | | | | [facility] | | | | [...] [address] | [place] | [phone] | | [facility] | | [address] | | | - LABORATORY | | | | + + + + + | [facility] | [address] | [place] | | | [facility] | | [address] | | | - LABORATORY | | [...] + | [facility] [facility] | [address] | [place] | [phone] | | [facility] | | [address] | | | - LABORATORY | | | | + + + + + | [facility] | [address] | [place], [place] | | | [facility] | | [address] | | | - LABORATORY | | [...]
--- OUTSIDE RECORDS SUMMARY | ~2019-05-05 | XMS | Encounter Summary ---
Demographics + + + | Address | [address] | | | [place] [address] | + + + | Home Phone [...] [place] | | | | | [address] | | + + + + + Care Team Providers + +------+ + | Care Production Tester Name | Role | Phone | + +------+ + | Caitlin Chino MD | PCP | | + +------+ + Encounter Details +--------+ + + + + | Date | Type | Department | Care Team | Description | +--------+ + + + + | 12/20/ | Hospital | [facility] | Vivian, | No Show | | 2015 | Encounter | MED CTR CHEMO | Lokesh Gramajo MD [address] | | | | | INFUSION [address] [place] | | | | | [place], | [place] [address] | | | | | [place] [address] | [phone] | | | | | [phone] | | | +--------+ + + + [...] | | | | | [place] [address] | | | | | | [phone] | | | | | | | | +--------+ + + + + | 06/08/ | Office | Physical Medicine | Rocky Santos, | | | 2019 | Visit | and Rehabilitation | MD [address] | | | | | | [place] | | | | | | [address] | | | | | | | | +--------+ + + + + | 06/16/ | Appointment | Pulmonology | Eveline Jaffe | | 2019 | | | MD [address] | | | | | | [place] | | | | | | [place] [address] | | | | | | [phone] | | | | | | | | +--------+ + + + + | 06/16/ | Office | Pulmonology | Eveline Jaffe | | | 2019 | Visit | | MD Raul [address] | | | | | | [address] [address] | | | | | | [place] [address] | | | | | | [phone] | | | | | | | | +--------+ + + + + | 08/24/ | Office | Cardiology | Anisha Lopez DO | | | 2019 | Visit | | [address] | | | | | | [place] | | | | | | [address] | | | | | | | | +--------+ + + + + documented as of this encounter Visit Diagnoses Not on filedocumented in this encounter"
--- OUTSIDE RECORDS SUMMARY | ~2019-05-05 | XMS | Encounter Summary ---
Demographics + + + | Address | [address] | | | [place] [address] | + + + | Home Phone [...] [place] | | | | | [address] | | + + + + + Care Team Providers + +------+ + | Care Revival Clerk Name | Role | Phone | [...] [place] | | | | | [place], | [address] | | | | | [place] [address] | | | | | | [phone] | | | +--------+ + + + [...] | | | | | [place] [address] | | | | | | [phone] | | | | | | | | +--------+ + + + + | 06/08/ | Office | Physical Medicine | Rocky Santos, | | | 2019 | Visit | and Rehabilitation | MD [address] | | | | | | [place] | | | | | | [address] | | | | | | | | +--------+ + + + + | 06/16/ | Appointment | Pulmonology | Eveline Jaffe | | 2019 | | | MD [address] | | | | | | [address] [place] | | | | | | [place] [address] | | | | | | [phone] | | | | | | | | +--------+ + + + + | 06/16/ | Office | Pulmonology | Eveline Jaffe | | | 2019 | Visit | | MD Raul [address] | | | | | | [address] [place] | | | | | | [place] [address] | | | | | | [phone] | | | | | | | | +--------+ + + + + | 08/24/ | Office | Cardiology | Anisha Lopez DO | | | 2019 | Visit | | [address] | | | | | | [place] | | | | | | [address] | | | | | | | | +--------+ + + + + documented as of this encounter Visit Diagnoses Not on filedocumented in this encounter"
--- OUTSIDE RECORDS SUMMARY | ~2019-05-05 | XMS | Encounter Summary ---
Demographics + + + | Address | [address] | | | [place] [address] | + + + | Home Phone [...] [place] | | | | | [address] | | + + + + + Care Team Providers + +------+ + | Care Emergency Medical Dispatcher Name | Role | Phone | + [...] | | | | squamous | Sarita C, | [place] | | | | | cell | MD [address] | [place], [place] | | | | | carcinoma of | [address] | [address] | | | | | lung, right | [place], | Phone: | | | | | (HCC) | [place] [address] | [phone] | | | | | Procedures | Phone: | Fax: | | | | | PET CT Skull | [phone] | [phone] | | | | | Base To Mid | Fax: | | | | | | Thigh | [phone] | | +--------+--------+ + + + + Reason for Visit + + + | Reason | Comments | + + + | Follow-up | | + + + Encounter Details +--------+ + + + + | Date | Type | Department | Care Team | Description | +--------+ + + + + | 11/09/ | Hospital | [facility] | Vivian, | Recurrent squamous | | 2015 | Encounter | [facility] | Sarita Gramajo MD [address] | cell carcinoma of | | | | [facility]Y CLINIC [address] | [facility] | lung, right (HCC) | | | [facility] | [place] [address] | (Primary Dx); | | | | [place] [address] | [phone] | Squamous cell | | | | [phone] | | carcinoma of lung, | | [...] nt from the original. Hematology/Oncology Progress Note [facility] Pt. Name/Age/: Thea Carmona 69 y.o. 1945 Med. Record Number: [id number] Date of admission: 11/09/2014 Identifying Statement: Thea Carmona is a 69 y.o. female from [address] [place] [address] with Locally recurrent squamous cell RIGHT lung [...] 2.CT-guided biopsy by interventional radiology at [facility] of the right lung massshows squamous cell [...] Taxol in August 2014 9. Admitted to [facility] on September 27, 2014 for right-sided chest pain secondar y to acute bronchitis. 10. CT chest [facility] on September 28, 2014 demonstrated persistent 32 mm x 26 mm x 27 mm Right Hilar Mass. Current Assessment & Plan Stephanie returned to the [facility] on November 09, 2014 for f ollow up of her locally recurrent RIGHT Lung cancer. Interval history is notable for the fac t that Thea was admitted to [facility] in [place], [place] for acute exacerbatio n of chronic bronchitis. During her hospitalization there, a chest CT was performed demonstr ating a persistent 32 x 26 mm right hilar mass. These images were reviewed subsequently at [facility] on their PACS system. Radiographic abnormality in the right hilum ma y represent persistent tumor or simply residual, non viable tissue following combined modali ty therapy. Since therapeutic effect of irradiation may be delayed, I recommended waiting an additional month before proceeding with repeat PET scan to assess for persistent disease. PET/CT schedule at [facility] on December 21, 2014 with follow up at [facility] the following week. RESOLVED: [...] is no weight documented from last visit [place] narendra patient reports that she has lost 7 [...] was recently admitted to the hospital at [facility] with excruciating pain in her right lung. [...] Date COPD (chronic obstructive pulmonary disease) ([facility]) on albuterol Spondylolisthesis of cervical region Spinal stenosis has tried cortisone injections Osteoporosis Depression Pneumonia 2009 hospitalized 5 days Rheumatoid arthritis(714.0) ([facility]) on prednisone and methotrexate, Dr. Lewis Harmony Hyperlipidemia on simvastatin Hypertension on clonidine and lisinopril Hypothyroidism GERD (gastroesophageal reflux disease) Stroke ([facility]) 2007 Stroke ([facility]) 2007 Squamous cell carcinoma of lung ([facility]) 07/2013 right lower lobe Sputum culture positive for Scopulariopsis species Recurrent squamous cell carcinoma of lung ([facility]) 07/11/[address] and RUL [...] EBUS with right hilar LN biopsy, [facility] Dr. Sierra Tunneled venous port placement N/A 07/28/2014 Procedure: Port Placement; Surgeon: Chalino Chiu MD; Location: [facility] MAIN OR Colonoscopy 06/2014 History Social History Marital Status: Spouse Name: N/A Number of Children: N/A Years of Education: N/A Occupational History [employer] at the [employer] Social History Main Topics Smoking status: Former [...] on file Social History Narrative Lives: in [place] With: alone Grew up: in [place] Has previously lived in: [place] Exposure to [...] has been changed since signin Order [facility] [place] albuterol 2.5 mg/3 mL nebulizer solution (Taking) Take 2.5 mg by nebulization every 6 rodrigo rs as needed. Number of times this order has been changed since signin Order [facility] [place] albuterol 90 mcg/puff inhaler (Taking) Inhale 2 puffs into the lungs every 6 hours as nee ded for Wheezing or Shortness of Breath. Number of times this order has been changed since signin Order [facility] [place] aspirin 81 MG tablet (Taking) Take 81 mg by mouth Daily. Number of times this order has been changed since signin Order [facility] [place] benzonatate (TESSALON PERLES) 100 mg capsule (Taking) Take 1 capsule by mouth 3 times marlen ly as needed for Cough. Number of times this order has been changed since signin Order [facility] [place] budesonide-formoterol (SYMBICORT) 160-4.5 mcg/puff inhaler (Taking) Inhale 2 puffs into t he lungs 2 times daily. Number of times this order has been changed since signin Order [facility] [place] cholecalciferol (VITAMIN D-3) 1,000 units capsule (Taking) Take 1,000 Units by mouth Alvarado y. Number of times this order has been changed since signin Order [facility] [place] cloNIDine (CATAPRES) 0.1 mg tablet (Taking) Take by mouth Daily. Number of times this order has been changed since signin Order [facility] [place] clopidogrel (PLAVIX) 75 mg tablet (Taking) Take 75 mg by mouth Daily. Number of times this order has been changed since signin Order [facility] [place] diazepam (VALIUM) 2 mg tablet (Taking) nightly as needed. Number of times this order has been changed since signin Order [facility] [place] ferrous sulfate (IRON) 28 MG TABS (Taking) Take 28 mg by mouth Daily. Number of times this order has been changed since signin Order [facility] [place] Fexofenadine HCl (ETHAN ALLERGY PO) (Taking) Take by mouth Daily. Number of times this order has been changed since signin Order [facility] [place] folic acid 1 mg tablet (Taking) Take 1 mg by mouth Daily. Number of times this order has been changed since signin Order [facility] [place] guaiFENesin (MUCINEX) 600 mg 12 hr tablet (Taking) Take 1,200 mg by mouth as needed. Number of times this order has been changed since signin Order [facility] [place] HYDROcodone-acetaminophen (HYCET) 7.5-325 mg/15 mL liquid (Taking) Take 15 mLs by mouth 4 times daily as needed for Pain. Number of times this order has been changed since signin Order [facility] [place] HYDROmorphone (DILAUDID) 4 MG tablet (Taking) Take 4 mg by mouth every 6 hours as needed. Number of times this order has been changed since signin Order [facility] [place] levothyroxine (SYNTHROID) 100 mcg tablet (Taking) Take 75 mcg by mouth every morning (bef ore breakfast). Number of times this order has been changed since signin Order [facility] [place] LORazepam (ATIVAN) 1 mg tablet (Taking) Take 1 mg by mouth every 6 hours as needed for An xiety. Number of times this order has been changed since signin Order [facility] [place] Magnesium 100 MG CAPS (Taking) Take by mouth Daily. Number of times this order has been changed since signin Order [facility] [place] methotrexate 2.5 mg tablet (Taking) Take 25 mg by mouth Once a week. Number of times this order has been changed since signin Order [facility] [place] omeprazole (PRILOSEC) 20 mg capsule (Taking) Take 40 mg by mouth every morning (before br eakfast). Number of times this order has been changed since signin Order [facility] [place] predniSONE (DELTASONE) 5 mg tablet (Taking) Take 10 mg by mouth Daily. Number of times this order has been changed since signin Order [facility] [place] ranitidine (ZANTAC) 150 mg tablet (Taking) Take 1 tablet by mouth 2 times daily. Number of times this order has been changed since signin Order [facility] [place] Respiratory Therapy Supplies MISC (Taking) ResMed S9 auto CPAP 5-9 cm H2O. Heater and Hum idifier. All necessary supplies. AHI 11.6. Diagnosis Code(s)327.23, also has co morbid hyper tension, history of stroke. Length of Need 99 months. Please send order to [facility]. Number of times this order has been changed since signin Order [facility] [place] simvastatin (ZOCOR) 40 mg tablet (Taking) Take 40 mg by mouth nightly. Number of times this order has been changed since signin Order [facility] [place] venlafaxine (EFFEXOR) 75 MG tablet (Taking) Take 37.5 mg by mouth 2 times daily. Number of times this order has been changed since signin Order [facility] [place] Allergy: No Known Allergies Objectives: Temp: 37.1 [...] in Am. J. Clin. Oncol.: Markus Osorio., Reynaldo, R.H., Adrienne Casillas., Clement Davis., Flaquito, TEdin., Bacilio, E.T., Juaquin, P .P.: Toxicity And Response Criteria Of The Eastern [...] found 3.1 Pharmacovigilance: IDT PATIENT MEDICATION/PROFILE REVIEW [facility] Pharmacy Recommendation [...] of Paclitaxel and carboplatin for locally advanced nvi-rrxhu-sspt lung cancer: a randomized phase II locally advanced multi-modality protocol. Pertinent Medical History: has a past medical history of COPD (chronic obstructive pulmona ry disease) ([facility]); Spondylolisthesis of cervical region; Spinal stenosis; Osteoporosis; Depr ession; Pneumonia (2008); Rheumatoid arthritis(714.0) ([facility]); Hyperlipidemia; Hypertension; H ypothyroidism; GERD (gastroesophageal reflux disease); Stroke ([facility]) (2006); Stroke ([facility]) (18 01); Squamous cell carcinoma of lung ([facility]) (07/2013); Sputum culture positive for Scopulariop sis species; Recurrent squamous cell carcinoma of lung ([facility]) (07/11/2014); MARCE (obstructive s leep apnea); [...] mg by mouth Daily. Respiratory Therapy Supplies [facility] ResMed S9 auto CPAP 5-9 cm H2O. [...] U/L Final Electronically signed by: Hiral Dsouza [facility] 07/31/2014 11:32 Palliative Care: No immediate needs identified. SARITA HENDRIX MD Portions of this chart may have been created with [employer] voice recognition software. Occasi onal wrong-word or sound-alike substitutions may have occurred due to the inherent guzman itations of voice recognition software. Please read the chart carefully and recognize, using context, where these substitutions have occurred. documented in t his encounter Plan of [...] | | | | | [place] [address] | | | | | | [phone] | | | | | | | | +--------+ + + + + | 06/08/ | Office | Physical Medicine | Rocky Santos, | | | 2019 | Visit | and Rehabilitation | [address] | | | | | | [place] | | | | | | [address] | | | | | | | | +--------+ + + + + | 06/16/ | Appointment | Pulmonology | Eveline Jaffe | | | 2019 | | | MD [address] | | | | | | [address] [place] | | | | | | [place] [address] | | | | | | [phone] | | | | | | | | +--------+ + + + + | 06/16/ | Office | Pulmonology | Eveline Jaffe | | | 2019 | Visit | | MD [address] | | | | | | [address] [place] | | | | | | [place] [address] | | | | | | [phone] | | | | | | | | +--------+ + + + + | 08/24/ | Office | Cardiology | Anisha Lopez DO | | 2019 | Visit | | [address] | | | | | | [place] | | | | | | [address] | | | | | | | [...] | | PDT | stage I, right (HCC) | results section. | + +--------+ + + + | LACTATE | STAT | 11/09/2014 | Squamous cell | Results for this | | DEHYDROGENASE | | 1:13 PM | carcinoma of lung, | procedure are in the | | | | PDT | stage I, right (HCC) | results section. | + +--------+ + + + | COMPREHENSIVE | STAT | 11/09/2014 | Squamous cell | Results for this | | METABOLIC PANEL | | 1:13 PM | carcinoma of lung, | procedure are in the | | | | PDT | stage I, right ([facility]) | results section. | + +--------+ [...] | | | |Dictated and Signed by: Mahteus Kapadia MD | | | Electronically signed: [...] (H) | 91 - 180 U/L | [facility] | | | | [...] [address] | [place] | [phone] | | [facility] | | [address] | | | - LABORATORY | | [...] | mL/min/1.73m2 | [facility] | | | [place] | RATE,ESTIMATED | | MEDICAL | | | | mL/min/1.34x4Oeie than | | CENTER - | | [...] + | [facility] | [address] | [place] | [phone] | | [facility] | | [address] | | | - LABORATORY | | | | + + + + + CBC with Differential (11/09/2014 1:13 PM PDT) + + + + + + | Component | Value | Ref Range | Performed | Pathologist | | | | | At | Signature | + + + + + + | WBC | 7.6 | 4.0 - 11.0 K/uL | [facility] | | | | | | [facility] | | | | | | MEDICAL | | | | | | CENTER - | | | | | | LABORATORY | | + + + + + + | RBC | 3.53 (L) | 3.70 - 5.20 [...] [address] | [place] | [phone] | | [facility] | | [address] | | | - LABORATORY | | [...]
--- OUTSIDE RECORDS SUMMARY | ~2019-05-05 | XMS | Encounter Summary ---
Demographics + + + | Address | [address] | | | [place] [address] | + + + | Home Phone [...] [place] | | | | | [address] | | + + + + + Care Team Providers + +------+ + | Care Structural Steel Shop Supervisor Name | Role | Phone [...] | carcinoma of | [place], | [place], | | | | | lung, right | [place] | [place] [address] | | | | | (HCC) | [address] | Phone: | | | | | | Phone: | [phone] | | | | | | [phone] | Fax: | | | | | | Fax: | [phone] | | | | | | [phone] | | +--------+ + + + + + Encounter Details +--------+ + + + + | Date | Type | Department | Care Team | Description | +--------+ + + + + | 07/25/ | Hospital | [facility] | Adelita Lu MD | Recurrent squamous | | 2015 | Encounter | [facility] | [address] [facility] | cell carcinoma of | | | | ONCOLOGY CLINIC [address] | [place] | lung, unspecified | | | | [address] [facility] | [address] | laterality (HCC) | | | | [place] [address] | [phone] | (Primary Dx); | | | | [phone] | | Recurrent squamous | | | [...] 07/25/2014 2:40 PM PST Hem-Onc Progress Note [facility] Patient name:Thea Carmona : 1945 Age: 69 y.o. CSN: [id number] Date of Service: 07/25/2014 Identifying Statement: Thea Carmona is a 69 y.o. female from [facility] with clinical stage II, pathologic stage IB [...] lewis 2.CT-guided biopsy by interventional radiology at [facility] of the right lung massshows squamous [...] Diagnosis Date COPD (chronic obstructive pulmonary disease) ([facility]) on albuterol Spondylolisthesis of cervical region Spinal stenosis has tried cortisone injections Osteoporosis Depression Pneumonia 2009 hospitalized 5 days Rheumatoid arthritis(714.0) ([facility]) 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 RESPIRATORY THERAPY SUPPLIES [facility] ResMed S9 auto CPAP 5-9 cm H2O. Heater and Humidifier . All necessary supplies. AHI 11.6. Diagnosis Code(s)327.23, also has co morbid hypertension , history of stroke. Length of Need 99 months. Please send order to [facility]. RESPIRATORY THERAPY SUPPLIES [employer] Respironics autotitrating CPAP at 5-9 cm H2O [...] >=60 mL/min/1.73m2 Imaging: PET/CT scan June 2014: [facility]: Necrotic right lung lesion wit h [...] to proceed port placement .all records from [facility] were reviewed Total time face to face discussion with the patient and family was 45 minutes, more than 5 0% of the time was spent counseling and coordination of care. Adelita Lu MD Portions of this chart may have been created with [employer] voice recognition software. Occasi onal wrong-word or [...] | | | | | [place] [address] | | | | | | [phone] | | | | | | | | +--------+ + + + + | 06/08/ | Office | Physical Medicine | Rocky Santos, | | | 2019 | Visit | and Rehabilitation | [address] | | | | | | [place] | | | | | | [address] | | | | | | | | +--------+ + + + + | 06/16/ | Appointment | Pulmonology | Eveline Jaffe | | | 2019 | | | MD [address] | | | | | | [address] [place] | | | | | | [place] [address] | | | | | | [phone] | | | | | | | | +--------+ + + + + | 06/16/ | Office | Pulmonology | Eveline Jaffe | | | 2019 | Visit | | MD [address]ole [address] | | | | | | [address] [place] | | | | | | [place] [address] | | | | | | [phone] | | | | | | | | +--------+ + + + + | 08/24/ | Office | Cardiology | Anisha Lopez DO | | | 2019 | Visit | | [address] | | | | | | [place] | | | | | | [address] | | | | | | | [...] mL/min/1.73m2 | [facility] | | [facility] | | | [...] + | [facility] | [address] | [place] | [phone] | | [facility] | | [address] | | | - LABORATORY | | | | + + + + + | [facility] | [address] | [place] | | | [facility] | | [address] | | | - LABORATORY | | [...] + + | Performing | Address | City/[facility]/Zipcode | Phone Number | | Organization | | | | + + + + + | [facility] | [address] | [place], [place] | [phone] | | [facility] | | [address] | | | - LABORATORY | | | | + + + + + | [facility] | [address] | [place], [place] | | | [facility] | | [address] | | | - LABORATORY | | [...]
--- OUTSIDE RECORDS SUMMARY | ~2019-05-05 | XMS | Encounter Summary ---
Demographics + + + | Address | [address] | | | [place] [address] | + + + | Home Phone [...] [place] | | | | | [address] | | + + + + + Care Team Providers + +------+ + | Care Director Machine Name | Role | Phone | + [...] | | squamous | Sarita C, | [facility] [place] | | | | | cell | MD [address] | [place], [place] | | | | | carcinoma of | [address] | [address] | | | | | lung, right | [place], | Phone: | | | | | (HCC) | [place] [address] | [phone] | | | | | Procedures | Phone: | Fax: | | | | | PET CT Skull | [phone] | [phone] | | | | | Base To Mid | Fax: | | | | | | Thigh | [phone] | | +--------+--------+ + + + + Reason for Visit + + + | Reason | Comments | + + + | Follow-up | | + + + Encounter Details +--------+ + + + + | Date | Type | Department | Care Team | Description | +--------+ + + + + | 11/09/ | Hospital | [facility] | Vivian, | Recurrent squamous | | 2015 | Encounter | [facility] | Sarita Gramajo MD [address] | cell carcinoma of | | | | [facility] | [facility] | lung, right (HCC) | | | | [facility] | [place] [address] | (Primary Dx); | | | | [place] [address] | [phone] | Squamous cell | | | | [phone] | | carcinoma of lung, | | [...] nt from the original. Hematology/Oncology Progress Note [facility] Pt. Name/Age/: Thea Carmona 69 y.o. 1945 Med. Record Number: [id number] Date of admission: 11/09/2014 Identifying Statement: Thea Carmona is a 69 y.o. female from [address] [place] [address] with Locally recurrent squamous cell RIGHT lung [...] lewis 2.CT-guided biopsy by interventional radiology at [facility] of [...] by Dr. Mace , thoracic surgeon at [facility] for consideration of broncho scopy, right [...] Taxol in August 2014 9. Admitted to [facility] on September 27, 2014 for right-sided chest pain secondar y to acute bronchitis. 10. CT chest [facility] on September 28, 2014 demonstrated persistent 32 mm x 26 mm x 27 mm Right Hilar Mass. Current Assessment & Plan Stephanie returned to the [facility] on November 09, 2014 for f ollow up of her locally recurrent RIGHT Lung cancer. Interval history is notable for the fac t that Thea was admitted to [facility] in [place], [place] for acute exacerbatio n of chronic bronchitis. During her hospitalization there, a chest CT was performed demonstr ating a persistent 32 x 26 mm right hilar mass. These images were reviewed subsequently at [facility] on their PACS system. Radiographic abnormality in the right hilum ma y represent persistent tumor or simply residual, non viable tissue following combined modali ty therapy. Since therapeutic effect of irradiation may be delayed, I recommended waiting an additional month before proceeding with repeat PET scan to assess for persistent disease. PET/CT schedule at [facility] on December 21, 2014 with follow up at [facility] the following week. RESOLVED: [...] was recently admitted to the hospital at [place] with excruciating pain in her right lung. [...] Diagnosis Date COPD (chronic obstructive pulmonary disease) ([facility]) on albuterol Spondylolisthesis of cervical region Spinal stenosis has tried cortisone injections Osteoporosis Depression Pneumonia 2009 hospitalized 5 days Rheumatoid arthritis(714.0) ([facility]) on prednisone and methotrexate, Dr. 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 Number of times this order has been changed since signin Order [facility] albuterol 90 mcg/puff inhaler (Taking) Inhale 2 puffs into the lungs every 6 hours as nee ded for Wheezing or Shortness of Breath. Number of times this order has been changed since signin Order [facility] aspirin 81 MG tablet (Taking) Take 81 mg by mouth Daily. Number of times this order has been changed since signin Order [facility] benzonatate (TESSALON PERLES) 100 mg capsule (Taking) Take 1 capsule by mouth 3 times marlen ly as needed for Cough. Number of times this order has been changed since signin Order [facility] budesonide-formoterol (SYMBICORT) 160-4.5 mcg/puff inhaler (Taking) Inhale 2 puffs into t he lungs 2 times daily. Number of times this order has been changed since signin Order [facility] cholecalciferol (VITAMIN D-3) 1,000 units capsule (Taking) Take 1,000 Units by mouth Alvarado y. Number of times this order has been changed since signin Order [facility] cloNIDine (CATAPRES) 0.1 mg tablet (Taking) Take by mouth Daily. Number of times this order has been changed since signin Order [facility] clopidogrel (PLAVIX) 75 mg tablet (Taking) Take 75 mg by mouth Daily. Number of times this order has been changed since signin Order [facility] diazepam (VALIUM) 2 mg tablet (Taking) nightly as needed. Number of times this order has been changed since signin Order [facility] ferrous sulfate (IRON) 28 MG TABS (Taking) Take 28 mg by mouth Daily. Number of times this order has been changed since signin Order [facility] Fexofenadine HCl (ETHAN ALLERGY PO) (Taking) Take by mouth Daily. Number of times this order has been changed since signin Order [facility] folic acid 1 mg tablet (Taking) Take 1 mg by mouth Daily. Number of times this order has been changed since signin Order [facility] guaiFENesin (MUCINEX) 600 mg 12 hr tablet (Taking) Take 1,200 mg by mouth as needed. Number of times this order has been changed since signin Order [facility] HYDROcodone-acetaminophen (HYCET) 7.5-325 mg/15 mL liquid (Taking) Take 15 mLs by mouth 4 times daily as needed for Pain. Number of times this order has been changed since signin Order [facility] HYDROmorphone (DILAUDID) 4 MG tablet (Taking) Take 4 mg by mouth every 6 hours as needed. Number of times this order has been changed since signin Order [facility] levothyroxine (SYNTHROID) 100 mcg tablet (Taking) Take 75 mcg by mouth every morning (bef ore breakfast). Number of times this order has been changed since signin Order [facility] LORazepam (ATIVAN) 1 mg tablet (Taking) Take 1 mg by mouth every 6 hours as needed for An xiety. Number of times this order has been changed since signin Order [facility] Magnesium 100 MG CAPS (Taking) Take by mouth Daily. Number of times this order has been changed since signin Order [facility] methotrexate 2.5 mg tablet (Taking) Take 25 mg by mouth Once a week. Number of times this order has been changed since signin Order [facility] omeprazole (PRILOSEC) 20 mg capsule (Taking) Take 40 mg by mouth every morning (before br eakfast). Number of times this order has been changed since signin Order [facility] predniSONE (DELTASONE) 5 mg tablet (Taking) Take 10 mg by mouth Daily. Number of times this order has been changed since signin Order [facility] ranitidine (ZANTAC) 150 mg tablet (Taking) Take 1 tablet by mouth 2 times daily. Number of times this order has been changed since signin Order [facility] Respiratory Therapy Supplies MISC (Taking) ResMed S9 auto CPAP 5-9 cm H2O. Heater and Hum idifier. All necessary supplies. AHI 11.6. Diagnosis Code(s)327.23, also has co morbid hyper tension, history of stroke. Length of Need 99 months. Please send order to [facility]. Number of times this order has been changed since signin Order [facility] [place] simvastatin (ZOCOR) 40 mg tablet (Taking) Take 40 mg by mouth nightly. Number of times this order has been changed since signin Order [facility] venlafaxine (EFFEXOR) 75 MG tablet (Taking) Take 37.5 mg by mouth 2 times daily. Number of times this order has been changed since signin Order [facility] Allergy: No Known Allergies Objectives: Temp: 37.1 [...] found 3.1 Pharmacovigilance: IDT PATIENT MEDICATION/PROFILE REVIEW [facility] [...] of Paclitaxel and carboplatin for locally advanced oot-qdhxc-ypuh lung cancer: a randomized phase II locally advanced multi-modality protocol. Pertinent Medical History: has a past medical history of COPD (chronic obstructive pulmona ry disease) ([facility]); Spondylolisthesis of cervical region; Spinal stenosis; Osteoporosis; Depr ession; Pneumonia (2008); Rheumatoid arthritis(714.0) ([facility]); Hyperlipidemia; Hypertension; H ypothyroidism; GERD (gastroesophageal reflux disease); Stroke ([facility]) (2006); Stroke ([facility]) (18 01); Squamous cell carcinoma of lung ([facility]) (07/2013); Sputum culture positive for Scopulariop sis species; Recurrent squamous cell carcinoma of lung ([facility]) (07/11/2014); MRACE (obstructive s leep apnea); and Full dentures. [...] mg by mouth Daily. Respiratory Therapy Supplies [facility] ResMed S9 auto CPAP 5-9 cm H2O. [...] U/L Final Electronically signed by: Hiral Dsouza [facility] 07/31/2014 11:32 Palliative Care: No immediate needs identified. SARITA HENDRIX MD Portions of this chart may have been created with [employer] voice recognition software. Occasi onal wrong-word or [...] | 05/30/ | Office | Rheumatology | aSntosh Sumner, | | | 2018 | Visit | | [address] | | | | | | [facility] | | | | | | [place] [address] | | | | | | [phone] | | | | | | | | +--------+ + + + + | 06/08/ | Office | Physical Medicine | Rocky Santos, | | | 2019 | Visit | and Rehabilitation | [address] | | | | | | [place] | | | | | | [address] | | | | | | | | +--------+ + + + + | 06/16/ | Appointment | Pulmonology | Eveline Jaffe | | | 2019 | | | MD [address] | | | | | | [address] [place] | | | | | | [place] [address] | | | | | | [phone] | | | | | | | | +--------+ + + + + | 06/16/ | Office | Pulmonology | Eveline Jaffe | | | 2019 | Visit | | MD [address] | | | | | | [address] [place] | | | | | | [place] [address] | | | | | | [phone] | | | | | | | | +--------+ + + + + | 08/24/ | Office | Cardiology | Anisha Lopez DO | | 2019 | Visit | | [address] | | | | | | [place] | | | | | | [address] | | | | | | | [...] | | PDT | stage I, right ([facility]) | results section. | + +--------+ + [...] [address] | [place] | [phone] | | [facility] | | [address] | | | - LABORATORY | | [...] | mL/min/1.73m2 | SOO | | | GAMBIAN | RATE,ESTIMATED | | MEDICAL | | | | mL/min/1.42j6Nciz than | | CENTER - | | [...] + | [facility] | [address] | [place] | [phone] | | [facility] | | [address] | | | - LABORATORY | | [...] [address] | [place] | [phone] | | [facility] | | [address] | | | - LABORATORY | | [...]
--- OUTSIDE RECORDS SUMMARY | ~2019-05-05 | XMS | Encounter Summary ---
Demographics + + + | Address | [address] | | | [place] [address] | + + + | Home Phone [...] [place] | | | | | [address] | | + + + + + Care Team Providers + +------+ + | Care Inventory Analyst Name | Role | Phone | [...] + + | 08/28/ | Hospital | [facility] | Adelita Lu MD | 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 | | | | INFUSION [address] | [place], [place] | lung, unspecified | | | | [place], | [address] | laterality (HCC); | | | | [place] [address] | [phone] | Pulmonary nodules | | | | [phone] | | | +--------+ + + + [...] | | | | | [place] [address] | | | | | | [phone] | | | | | | | | +--------+ + + + + | 06/08/ | Office | Physical Medicine | Rocky Santos, | | | 2019 | Visit | and Rehabilitation | [address] | | | | | | [place] | | | | | | [address] | | | | | | | | +--------+ + + + + | 06/16/ | Appointment | Pulmonology | Eveline Jaffe | | | 2019 | | | MD [address] | | | | | | [address] [place] | | | | | | [place] [address] | | | | | | [phone] | | | | | | | | +--------+ + + + + | 06/16/ | Office | Pulmonology | Eveline Jaffe | | | 2019 | Visit | | MD Nich[address] | | | | | | [address] [place] | | | | | | [place] [address] | | | | | | [phone] | | | | | | | | +--------+ + + + + | 08/24/ | Office | Cardiology | Anisha Lopez DO | | | 2019 | Visit | | [address] | | | | | | [place] | | | | | | [address] | | | | | | | [...] + | [facility] | [address] | [place] | [phone] | | [facility] | | [address] | | | - LABORATORY | | [...] mL/min/1.73m2 | Janet VANN | | | EGYPTIAN | RATE,ESTIMATED | | MEDICAL | | | | mL/min/1.53z9Tjdg than | | CENTER - | | [...] [address] | [place] | [phone] | | [facility] | | [address] | | | - LABORATORY | | [...]
--- OUTSIDE RECORDS SUMMARY | ~2019-05-05 | XMS | Encounter Summary ---
Demographics + + + | Address | [address] | | | [place] [address] | + + + | Home Phone [...] [place] | | | | | [address] | | + + + + + Care Team Providers + +------+ + | Care Director Motion Picture Name | Role | Phone | + [...] | | | | | | [place] [address] | | | | | | [phone] | | | +--------+--------+ + + + [...] | | | | | [place] [address] | | | | | | [phone] | | | | | | | | +--------+ + + + + | 06/08/ | Office | Physical Medicine | Rocky Santos, | | | 2019 | Visit | and Rehabilitation | [address] | | | | | | [place] | | | | | | [address] | | | | | | | | +--------+ + + + + | 06/16/ | Appointment | Pulmonology | Eveline Jaffe | | | 2019 | | | MD [address] | | | | | | [address] [place] | | | | | | [place] [address] | | | | | | [phone] | | | | | | | | +--------+ + + + + | 06/16/ | Office | Pulmonology | Eveline Jaffe | | | 2019 | Visit | | MD Nichole Carter | | | | | | [address] [place] | | | | | | [place] [address] | | | | | | [phone] | | | | | | | | +--------+ + + + + | 08/24/ | Office | Cardiology | Anisha Lopez DO | | | 2019 | Visit | | [address] | | | | | | [place] | | | | | | [address] | | | | | | | | +--------+ + + + + documented as of this encounter Visit Diagnoses Not on filedocumented in this encounter"
--- OUTSIDE RECORDS SUMMARY | ~2019-05-05 | XMS | Encounter Summary ---
Demographics + + + | Address | [address] | | | [place] [address] | + + + | Home Phone [...] [place] | | | | | [address] | | + + + + + Care Team Providers + +------+ + | Care Research Statistician Name | Role | Phone | + [...] | | | | | | [place] [address] | | | | | | [phone] | | | +--------+ + + + [...] | | | | | [place] [address] | | | | | | [phone] | | | | | | | | +--------+ + + + + | 06/08/ | Office | Physical Medicine | Rocky Santos | | | 2019 | Visit | and Rehabilitation | [address] | | | | | | [place] | | | | | | [address] | | | | | | | | +--------+ + + + + | 06/16/ | Appointment | Pulmonology | Eveline Jaffe | | 2019 | | | MD [address] | | | | | | [address] [place] | | | | | | [place] [address] | | | | | | [phone] | | | | | | | | +--------+ + + + + | 06/16/ | Office | Pulmonology | Eveline Jaffe | | | 2019 | Visit | | MD [address] | | | | | | [address] [place] | | | | | | [place] [address] | | | | | | [phone] | | | | | | | | +--------+ + + + + | 08/24/ | Office | Cardiology | Anisha Lopez DO | | 2019 | Visit | | [address] | | | | | | [place] | | | | | | [address] | | | | | | | | +--------+ + + + + documented as of this encounter Visit Diagnoses Not on filedocumented in this encounter"
--- OUTSIDE RECORDS SUMMARY | ~2019-05-05 | XMS | Encounter Summary ---
Demographics + + + | Address | [address] | | | [place] [address] | + + + | Home Phone [...] [place] | | | | | [address] | | + + + + + Care Team Providers + +------+ + | Care Fluid Power Mechanic Name | Role | Phone | + +------+ + | Davis Ivan MD | PCP | | + +------+ + Reason for Visit +--------+ + | Reason | Comments | +--------+ + | Other | Referral to [facility] | +--------+ + Encounter Details +--------+ + + + + | Date | Type | Department | Care Team | Description | +--------+ + + + + | 07/06/ | Telephone | [facility] | Claudia, | Other (Referral to | | 2013 | | PULMONARY [address] | Ayana Looney MD | [facility] | | | | [place], | | ) | | | | [place] [address] | | | | | | [phone] | | | +--------+ + + + [...] | | | | | [place] [address] | | | | | | [phone] | | | | | | | | +--------+ + + + + | 06/08/ | Office | Physical Medicine | Rocky Santos, | | | 2019 | Visit | and Rehabilitation | [address] | | | | | | [place] | | | | | | [address] | | | | | | | | +--------+ + + + + | 06/16/ | Appointment | Pulmonology | Eveline Jaffe | | 2019 | | | MD [address] | | | | | | [place] | | | | | | [place] [address] | | | | | | [phone] | | | | | | | | +--------+ + + + + | 06/16/ | Office | Pulmonology | Eveline Jaffe | | | 2019 | Visit | | MD Raul [address] | | | | | | [place] | | | | | | [place] [address] | | | | | | [phone] | | | | | | | | +--------+ + + + + | 08/24/ | Office | Cardiology | Anisha Lopez DO | | | 2019 | Visit | | [address] | | | | | | [place] | | | | | | [address] | | | | | | | | +--------+ + + + + documented as of this encounter Visit Diagnoses Not on filedocumented in this encounter"
--- OUTSIDE RECORDS SUMMARY | ~2019-05-05 | XMS | Encounter Summary ---
Demographics + + + | Address | [address] | | | [place] [address] | + + + | Home Phone [...] [place] | | | | | [address] | | + + + + + Care Team Providers + +------+ + | Care Lpn Home Health Name | Role | Phone | + [...] + + | 09/15/ | Documentati | [facility] | Liseth Hodge, | Psychosocial Support | | 2014 | on | MED CTR MEDICAL | MEDICAL RECORD ADMINISTRATOR | | | | | [facility]Y CLINIC [address] | | | | | | [address] | | | | | | [place] [address] | | | | | | [phone] | | | +--------+ + + + [...] this encounter Progress Notes Ivone Hodgelamin Vaughan, MEDICAL RECORD ADMINISTRATOR - 09/15/2014 4:03 PM PDTOncology Tilesetter met with Thea to adm inister the NCCN Distress Thermometer and review it with her. Thea is being treated for dipti ng cancer. She was first diagnosed in March of 2013. She lives in [place], is and has a significant other. She is on Medicaid and Medicare. She has [facility]care [facility], Senior and People with Disabilities Services [...] coping skills and strong maximilian. This social science manager allowed for expression of feeling and provided supportive counseling and infor mation regarding the emotional aspects of a cancer diagnosis and treatment and offered liter ature on her diagnosis. Also provided her with a cookbook for people going through cancer tr eatment and referred her to the [employer] Look Good Feel Better program. She also expressed an interest in a wig and this social science manager apprised the ACS. This social wo rker encouraged Thea to continue to access individual support and apprised her of the C[facility] r Survivors Support Group. This social science manager is available to provide emotional support and additional community resource information and referral as needed. Patient is aware of supp ort services and how to access them. TRAINS DISPATCHER SUPERVISOR will follow up at appointments and by [...] | | | | | [place] [address] | | | | | | [phone] | | | | | | | | +--------+ + + + + | 06/08/ | Office | Physical Medicine | Rocky Santos, | | | 2019 | Visit | and Rehabilitation | MD [address] | | | | | | [place] | | | | | | [address] | | | | | | | | +--------+ + + + + | 06/16/ | Appointment | Pulmonology | Eveline Jaffe | | | 2019 | | | MD Raul [address] | | | | | | [address] [place] | | | | | | [place] [address] | | | | | | [phone] | | | | | | | | +--------+ + + + + | 06/16/ | Office | Pulmonology | Eveline Jaffe | | | 2019 | Visit | | MD [address] | | | | | | [address] [place] | | | | | | [place] [address] | | | | | | [phone] | | | | | | | | +--------+ + + + + | 08/24/ | Office | Cardiology | Anisha Lopez DO | | | 2019 | Visit | | [address] | | | | | | [place] | | | | | | [address] | | | | | | | | +--------+ + + + + documented as of this encounter Visit Diagnoses Not on filedocumented in this encounter"
--- OUTSIDE RECORDS SUMMARY | ~2019-05-05 | XMS | Encounter Summary ---
Demographics + + + | Address | [address] | | | [place] [address] | + + + | Home Phone [...] [place] | | | | | [address] | | + + + + + Care Team Providers + +------+ + | Care Senior Biostatistician/Group Leader Name | Role | Phone | + +------+ + | Davis Ivan MD | PCP | | + +------+ + Reason for Visit +--------+ + | Reason | Comments | +--------+ + | Other | Referral to [facility] | +--------+ + Encounter Details +--------+ + + + + | Date | Type | Department | Care Team | Description | +--------+ + + + + | 07/06/ | Telephone | [facility] | Claudia, | Other (Referral to | | 2013 | | PULMONARY [address] | Ayana Looney MD | [place] | | | | [place], | | ) | | | | [place] [address] | | | | | | [phone] | | | +--------+ + + + [...] | | | | | [place] [address] | | | | | | [phone] | | | | | | | | +--------+ + + + + | 06/08/ | Office | Physical Medicine | Rocky Santos, | | | 2019 | Visit | and Rehabilitation | MD [address] | | | | | | [place] | | | | | | [address] | | | | | | | | +--------+ + + + + | 06/16/ | Appointment | Pulmonology | Eveline Jaffe | | 2019 | | | MD [address] | | | | | | [place] | | | | | | [place] [address] | | | | | | [phone] | | | | | | | | +--------+ + + + + | 06/16/ | Office | Pulmonology | Eveline Jaffe | | | 2019 | Visit | | MD Raul [address] | | | | | | [place] | | | | | | [place] [address] | | | | | | [phone] | | | | | | | | +--------+ + + + + | 08/24/ | Office | Cardiology | Anisha Lopez DO | | | 2019 | Visit | | [address] | | | | | | [place] | | | | | | [address] | | | | | | | | +--------+ + + + + documented as of this encounter Visit Diagnoses Not on filedocumented in this encounter"
--- OUTSIDE RECORDS SUMMARY | ~2019-05-05 | XMS | Encounter Summary ---
Demographics + + + | Address | [address] | | | [place] [address] | + + + | Home Phone [...] [place] | | | | | [address] | | + + + + + Care Team Providers + +------+ + | Care Curling Machine Operator Name | Role | Phone [...] Edmond [place] | | | | | [phone] | [place] [address] | | +--------+ + + + + [...] | | | | | [place] [address] | | | | | | [phone] | | | | | | | | +--------+ + + + + | 06/08/ | Office | Physical Medicine | Rocky Santos | | | 2019 | Visit | and Rehabilitation | MD [address] | | | | | | [place] | | | | | | [address] | | | | | | | | +--------+ + + + + | 06/16/ | Appointment | Pulmonology | Eveline Jaffe | | 2019 | | | MD [address] | | | | | | [address] | | | | | | [place] [address] | | | | | | [phone] | | | | | | | | +--------+ + + + + | 06/16/ | Office | Pulmonology | Eveline Jaffe | | | 2019 | Visit | | MD Raul [address] | | | | | | [place] | | | | | | [place] [address] | | | | | | [phone] | | | | | | | | +--------+ + + + + | 08/24/ | Office | Cardiology | Anisha Lopez DO | | | 2019 | Visit | | [address] | | | | | | [place] | | | | | | [address] | | | | | | | [...]
--- OUTSIDE RECORDS SUMMARY | ~2019-05-05 | XMS | Encounter Summary ---
Demographics + + + | Address | [address] | | | [place] [address] | + + + | Home Phone [...] [place] | | | | | [address] | | + + + + + Care Team Providers + +------+ + | Care Inspector Screen Printing Name | Role | Phone | + [...] + + | 08/18/ | Telephone | [facility] | Adelita Lu MD | Annual Exam | | 2013 | | [facility] | [address] [facility] | | | | | ONCOLOGY CL[facility] [address] | [place] | | | | | [address] | [address] | | | | | [place] [address] | [phone] | | | | | [phone] | | | +--------+ + + + [...] | | | | | [place] [address] | | | | | | [phone] | | | | | | | | +--------+ + + + + | 06/08/ | Office | Physical Medicine | Rocky Santos, | | | 2019 | Visit | and Rehabilitation | [address] | | | | | | [place] | | | | | | [address] | | | | | | | | +--------+ + + + + | 06/16/ | Appointment | Pulmonology | Eveline Jaffe | | | 2019 | | | MD [address] | | | | | | [address] [place] | | | | | | [place] [address] | | | | | | [phone] | | | | | | | | +--------+ + + + + | 06/16/ | Office | Pulmonology | Eveline Jaffe | | | 2019 | Visit | | MD [address] | | | | | | [address] [place] | | | | | | [place] [address] | | | | | | [phone] | | | | | | | | +--------+ + + + + | 08/24/ | Office | Cardiology | Anisha Lopez DO | | | 2019 | Visit | | [address] | | | | | | [place] | | | | | | [address] | | | | | | | | +--------+ + + + + documented as of this encounter Results PFT PULMONARY FUNCTION TESTING ORDERS Full PFT ([place]ob[place] w/BD, lung volumes, diffusion)?: Yes; Spirometry?: Yes; [...] signed by: Ayana Taylor MD 09/01/2013 6:07 [facility] | | | [facility] CC: Davis Ivan | | | [...] Ayana Taylor MD 09/01/2013 6:07[facility] | | [facility] Davis [facility] | |[facility] | | | |CC: Davis Ivan | + + documented in this encounter Visit Diagnoses + + | Diagnosis | + + | Lung cancer (HCC) - Primary Malignant neoplasm of bronchus and lung, unspecified site | + + documented in this encounter"
--- OUTSIDE RECORDS SUMMARY | ~2019-05-05 | XMS | Encounter Summary ---
Demographics + + + | Address | [address] | | | [place] [address] | + + + | Home Phone [...] [place] | | | | | [address] | | + + + + + Care Team Providers + +------+ + | Care Wagon Driver Salesperson Name | Role | Phone | [...] | | | | | | [place] [address] | | | | | | [phone] | | | +--------+ + + + [...] | | | | | [place] [address] | | | | | | [phone] | | | | | | | | +--------+ + + + + | 06/08/ | Office | Physical Medicine | Rocky Santos, | | | 2019 | Visit | and Rehabilitation | MD [address] | | | | | | [place] | | | | | | [address] | | | | | | | | +--------+ + + + + | 06/16/ | Appointment | Pulmonology | Eveline Jaffe | | 2019 | | | MD [address] | | | | | | [address] | | | | | | [place] [address] | | | | | | [phone] | | | | | | | | +--------+ + + + + | 06/16/ | Office | Pulmonology | Eveline Jaffe | | 2019 | Visit | | MD Raul [address] | | | | | | [address] | | | | | | [place] [address] | | | | | | [phone] | | | | | | | [...]
--- OUTSIDE RECORDS SUMMARY | ~2019-05-05 | XMS | Encounter Summary ---
Demographics + + + | Address | [address] | | | [place] [address] | + + + | Home Phone [...] [place] | | | | | [address] | | + + + + + Care Team Providers + +------+ + | Care Feather Cutting Machine Feeder Name | Role | Phone [...] | 08/22/ | Hospital | [facility] | Adelita Lu MD | Recurrent squamous | | 2015 | Encounter | [facility] MED[facility] | [address] | cell carcinoma of | | | | ONCOLOGY CLINIC [address] | [place] | lung, unspecified | | | | [address] | [address] | laterality (HCC) | | | | [place] [address] | [phone] | (Primary Dx) | | | | [phone] | | | +--------+ + + + [...] 08/22/2014 10:19 AM PDT Hem-Onc Progress Note [facility] Patient name:Thea Carmona : 1945 Age: 69 y.o. CSN: [id number] Date of Service: 08/22/2014 Identifying Statement: Thea Carmona is a 69 y.o. female from [facility] [place] with clinical stage II, non-small cell lung [...] by Dr. Mace , thoracic surgeon at [facility] for consideration of broncho scopy, [...] 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 RESPIRATORY THERAP[facility] SUP[facility] ResMed S9 auto CPAP 5-9 cm H2O. Heater and Humidifier . All necessary supplies. AHI 11.6. Diagnosis Code(s)327.23, also has co morbid hypertension , history of stroke. Length of Need 99 months. Please send order to [facility]. [facility]ORY [facility]AP[facility] SU[facility] Respironics autotitrating CPAP at 5-9 cm H2O [...] 0.00-0.10 K/uL Imaging: PET/CT scan June 2014: [facility]: Necrotic right lung lesion wit [...] this chart may have been created with [employer] voice recognition software. Occasi onal wrong-word or [...] | | | | | [place] [address] | | | | | | [phone] | | | | | | | | +--------+ + + + + | 06/08/ | Office | Physical Medicine | Rocky Santos, | | | 2019 | Visit | and Rehabilitation | MD [address] | | | | | | [place] | | | | | | [address] | | | | | | | | +--------+ + + + + | 06/16/ | Appointment | Pulmonology | Eveline Jaffe | | 2019 | | | MD [address] | | | | | | [address] | | | | | | [place] [address] | | | | | | [phone] | | | | | | | | +--------+ + + + + | 06/16/ | Office | Pulmonology | Ld Eveline | | | 2019 | Visit | | MD [address] | | | | | | [place] | | | | | | [place] [address] | | | | | | [phone] | | | | | | | | +--------+ + + + + | 08/24/ | Office | Cardiology | Anisha Lopez DO | | | 2019 | Visit | | [address] | | | | | | [place] | | | | | | [address] | | | | | | | | +--------+ + + + + documented as of this encounter Visit Diagnoses + + | Diagnosis | + + | Recurrent squamous cell carcinoma of lung, unspecified laterality (HCC) - Primary | + + documented in this encounter
--- OUTSIDE RECORDS SUMMARY | ~2019-05-05 | XMS | Encounter Summary ---
Demographics + + + | Address | [address] | | | [place] [address] | + + + | Home Phone [...] [place] | | | | | [address] | | + + + + + Care Team Providers + +------+ + | Care Butcher Meat Name | Role | Phone | + +------+ + | Caitlin Chino MD | PCP | | + +------+ + Reason for Visit + + + | Reason | Comments | + + + | Follow-up | 6 month COPD follow up | + + + Follow Up (Routine) + +--------+ + + + + | Status | Reason | Specialty | Diagnoses / | Referred By | Referred To | | | | | Procedures | Contact | Contact | + +--------+ + + + + | Authorized | | Pulmonology | Diagnoses | Matti, | Eveline Jaffe | | | | | COPD, | Caitlin Mccray MD | MD Raul | | | | | severe (HCC) | [address] | [address] | | | | | Procedures | Epi Gaston | [facility] | | | | | F/U - APPT | [place], | [place] | | | | | [address] | [place] [address] | [address] Phone: | | | | | JONATHAN | Phone: | [phone] | | | | | | [phone] | Fax: | | | | | | Fax: | [phone] | | | | | | [phone] | | + +--------+ + + + + Encounter Details +--------+---------+ + + + | Date | Type | Department | Care Team | Description | +--------+---------+ + + + | 03/16/ | Office | [facility] | Eveline Jaffe | Dyspnea on exertion | | 2019 | Visit | PULMONARY [address] | MD Raul [address] | (Primary Dx); | | | | [place], | [address] | Chronic obstructive | | | | [place] [address] | [place] [address] | pulmonary disease, | | | | [phone] | [phone] | unspecified COPD | | | | | | type (HCC) | +--------+---------+ + + + Social [...] + + + | Blood Pressure | 122/60 | 03/16/2019 2:41 PM | | | | | PDT | | + + + + + | Pulse | 98 | 03/16/2019 2:41 PM | | | | | PDT | | + + + + + | Temperature | 36.3 C (97.3 F) | 03/16/2019 2:41 PM | | | | | PDT | | + + + + + | Respiratory Rate | - | - | | + + + + + | Oxygen Saturation | 95% | 03/16/2019 2:41 PM | RA | | | | PDT | | + + + + + | Inhaled Oxygen | - | - | | | Concentration | | | | + + + + + | Weight | 66.5 kg (146 lb 9.7 | 03/16/2019 2:41 PM | | | | oz) | PDT | | + + + + + | Height | 157.5 cm (5' 2") | 03/16/2019 2:41 PM | | | | | PDT | | + + + + + | Body Mass Index | 26.81 | 03/16/2019 2:41 PM | | | | | PDT [...] as of this encounter Progress Notes Eveline Jaffe MD - 03/16/2019 2:45 PM PDT Subjective: Thea Carmona is a 73 y.o. female who presents to the clinic with a chief complaint of Follow-up (6 month COPD follow up) HPI 73 year old female with past medical history RLL squamous cell carcinoma status post right lower lobectomy and chemoradiation therapy, rheumatoid arthritis on methotrexate and prednis one, COPD, history of pulmonary embolism who presents for follow-up. - Patient follows with Dr. Park for lung cancer. She reports that she probably had a PET scan or CT scan prior to her last visit with Dr. Park. She states that her tiara ging was negative for recurrence. - Patient complains of worsened SOB with exertion for the past year. She is only able to wa lk a few steps before becoming SOB. -She complains of increased cough with green sputum. she does have wheezing at night. - For her regimen, she takes breo ellipta and spiriva. Does not feel like she gets good rel ief. However, when she takes nebulized therapy, she feels this helps her. Patient reports that she is currently on amoxicillin for treatment of a chronic sinus in fection. She reports that she is to complete a 3 to 4-month course. - No RA flares. - Methotrexate 15mg and prednisone 10mg a day. She feels that her arthritis is worse. - No fever, chills, night sweats, weight loss. Patient's medications, allergies, past medical, surgical, social and family histories were obtained and reviewed as appropriate. Review of Systems Constitutional: Negative for chills and fever. HENT: Positive for congestion and sinus pain. Eyes: Negative for pain and itching. Respiratory: Positive for cough, shortness of breath and wheezing. Cardiovascular: Negative for chest pain and leg swelling. Gastrointestinal: Negative for abdominal pain, constipation, diarrhea, nausea and vomiting. Endocrine: Negative for cold intolerance and heat intolerance. Genitourinary: Negative for dysuria and frequency. Musculoskeletal: Positive for arthralgias and joint swelling. Skin: Negative for color change and pallor. Allergic/Immunologic: Negative for environmental allergies and food allergies. Neurological: Negative for dizziness and headaches. Psychiatric/Behavioral: Negative for agitation and confusion. Objective: Vitals: 03/16/19 1441 BP: 122/60 Pulse: 98 Temp: 36.3 C (97.3 F) Physical Exam Constitutional: She is oriented to person, place, and time. She appears well-developed and well-nourished. No distress. HENT: Head: Normocephalic and atraumatic. Right Ear: External ear normal. Left Ear: External ear normal. Nose: Nose normal. Mouth/Throat: Oropharynx is clear and moist. No oropharyngeal exudate. Eyes: Pupils are equal, round, and reactive to light. Conjunctivae and EOM are normal. Neck: Neck supple. No tracheal deviation present. No thyromegaly present. Cardiovascular: Normal rate, regular rhythm and normal heart sounds. Exam reveals no gallop and no friction rub. No murmur heard. Pulmonary/Chest: She is in respiratory distress (moderate distress). She has wheezes. She h as no rales. Abdominal: Soft. Bowel sounds are normal. She exhibits no distension. There is no tendernes s. Musculoskeletal: She exhibits no edema or deformity. Lymphadenopathy: She has no cervical adenopathy. Neurological: She is alert and oriented to person, place, and time. No cranial nerve defici t. Skin: Skin is warm and dry. Psychiatric: She has a normal mood and affect. Her behavior is normal. Assessment & Plan: 1. Dyspnea on exertion 2. Chronic obstructive pulmonary disease, unspecified COPD type (HCC) Respiratory Therapy Supplies (NEBULIZER/TUBING/MOUTHPIECE) KIT Respiratory Therapy Supplies (NEBULIZER COMPRESSOR) KIT budesonide (PULMICORT) 0.5 mg/2 mL nebulizer solution albuterol-ipratropium 2.5-0.5 mg/3 mL SOLN albuterol-ipratropium 2.5-0.5 mg/3 mL nebulizer solution 3 mL Pulmonary function test PFT [facility] COPD We will need repeat pulmonary function test to assess for worsening progression. Change to nebulized regimen given lack of benefit with inhaler regimen. Discontinue Isadora o Ellipta and Spiriva. Start budesonide nebs twice daily and DuoNeb's 4 times daily. Patient to receive DuoNeb treatment in clinic due to increased shortness of breath and w heezing on exam. Dyspnea on exertion Etiology of worsening dyspnea with exertion is unclear. Differential includes worsening COPD, pulmonary involvement secondary to rheumatoid arthritis, deconditioning She recently underwent cardiac work-up with nuclear stress test which was negative for p erfusion abnormality. Echocardiogram in 10/18 2018 showed normal LVEF, normal RV size and fu nction. We will repeat PFTs as above. we will contact Dr. Park's office to obtain records and any outside imaging. More than 30 minutes spent [id number] with patient with more than half the time spent cou nseling regarding etiology of dyspnea, reviewing complex medical history and shared decision making regarding next steps. See AVS for patient instructions. Diagnosis and plan including medications and side effects were discussed with the patient a nd information handout was given. Patient voices understanding of the plan and all questions were answered. Return in about 3 months (around 06/16/2019) for copd. documented in this encounter Plan of Treatment [...] | | | | | [place] [address] | | | | | | [phone] | | | | | | | | +--------+ + + + + | 06/08/ | Office | Physical Medicine | Rocky Santos, | | | 2019 | Visit | and Rehabilitation | MD [address] | | | | | | [place] | | | | | | [address] | | | | | | | | +--------+ + + + + | 06/16/ | Appointment | Pulmonology | Eveline Jaffe | | 2019 | | | MD [address] | | | | | | [address] | | | | | | [place] [address] | | | | | | [phone] | | | | | | | | +--------+ + + + + | 06/16/ | Office | Pulmonology | Eveline Jaffe | | | 2019 | Visit | | MD Raul [address] | | | | | | [address] | | | | | | [place] [address] | | | | | | [phone] | | | | | | | | +--------+ + + + + | 08/24/ | Office | Cardiology | Anisha Lopez DO | | | 2019 | Visit | | [address] | | | | | | [place] | | | | | | [address] | | | | | | | [...] | | | pulmonary disease, | until 03/16/2020 | | | | | unspecified COPD | | | | | | type (HCC) | | + +------+--------+ + + | PFT [facility] | PFT | ZEYNEP | Chronic | 1 Occurrences | | | | | obstructive | starting 03/16/2019 | | | | | pulmonary disease, | until 03/16/2020 | | | | | unspecified COPD | | | | | | type (HCC) | | + +------+--------+ + + documented as of this encounter Visit Diagnoses + + | Diagnosis | + + | Dyspnea on exertion - Primary Other dyspnea and respiratory abnormality | + + | Chronic obstructive pulmonary disease, unspecified COPD type (HCC) | + + documented in this encounter
--- OUTSIDE RECORDS SUMMARY | ~2019-05-05 | XMS | Encounter Summary ---
Demographics + + + | Address | [address] | | | [place] [address] | + + + | Home Phone [...] [place] | | | | | [address] | | + + + + + Care Team Providers + +------+ + | Care Touch Up Painter Hand Name | Role | Phone | [...] | | | | CT Cervical | [address] | | | | | | Spine wo | Phone: | | | | | | Contrast | [phone] | | | | | | | Fax: | | | | | | | [phone] | | +--------+--------+ + + + + [...] | | | | CT Cervical | [address] | | | | | | Spine wo | Phone: | | | | | | Contrast | [phone] | | | | | | | Fax: | | | | | | | [phone] | | +--------+--------+ + + + + Encounter Details +--------+ + + + + | Date | Type | Department | Care Team | Description | +--------+ + + + + | 06/16/ | Hospital | [facility] | Vidal Dalton ARNP | Spinal stenosis in | | 2015 | Encounter | MED [facility] [address] | [address] | cervical region | | | | [place], | [address] [place], | | | | | [place] [address] | [place] [address] | | | | | [phone] | [phone] | | | | | | | [...] | | | | | [place] [address] | | | | | | [phone] | | | | | | | | +--------+ + + + + | 06/08/ | Office | Physical Medicine | Rocky Santos, | | | 2019 | Visit | and Rehabilitation | MD [address] | | | | | | [place] | | | | | | [address] | | | | | | | | +--------+ + + + + | 06/16/ | Appointment | Pulmonology | Eveline Jaffe | | 2019 | | | MD [address]ole [address] | | | | | | [address] | | | | | | [place] [address] | | | | | | [phone] | | | | | | | | +--------+ + + + + | 06/16/ | Office | Pulmonology | Eveline Jaffe | | | 2019 | Visit | | MD Rual [address] | | | | | | [address] | | | | | | [place] [address] | | | | | | [phone] | | | | | | | | +--------+ + + + + | 08/24/ | Office | Cardiology | Anisha Lopez DO | | | 2019 | Visit | | [address] | | | | | | [place] | | | | | | [address] | | | | | | | [...] + | MISCELLANEOUS LAB | | | [phone] | + +---------+ + + | MISCELANIOUS LAB | | | [phone] | + +---------+ + + documented in this encounter Visit Diagnoses + + | Diagnosis | + + | Spinal stenosis in cervical region | + + documented in this encounter"
--- OUTSIDE RECORDS SUMMARY | ~2019-05-05 | XMS | Encounter Summary ---
Demographics + + + | Address | [address] | | | [place] [address] | + + + | Home Phone [...] [place] | | | | | [address] | | + + + + + Care Team Providers + +------+ + | Care Pipe Crew Foreman Name | Role | Phone | + +------+ + | Davis Ivan MD | PCP | | + +------+ + Encounter Details +--------+ + + + + | Date | Type | Department | Care Team | Description | +--------+ + + + + | 03/30/ | Hospital | [facility] | Offenstein, | Pulmonary nodule | | 2012 | Encounter | MED CTR LABORATORY | Ayana Looney MD | | | | | [address] | | | | | | [place] | | | | | | [address] | | | | | | [phone] | | | +--------+ + + + [...] | 2018 | Visit | | [address] | | | | | | [facility] | | | | | | [place] [address] | | | | | | [phone] | | | | | | | | +--------+ + + + + | 06/08/ | Office | Physical Medicine | Rocky Santos, | | | 2019 | Visit | and Rehabilitation | MD [address] | | | | | | [place] | | | | | | [address] | | | | | | | | +--------+ + + + + | 06/16/ | Appointment | Pulmonology | Eveline Jaffe | | | 2019 | | | MD [address] | | | | | | [address] | | | | | | [place] [address] | | | | | | [phone] | | | | | | | | +--------+ + + + + | 06/16/ | Office | Pulmonology | Eveline Jaffe | | | 2019 | Visit | | MD [address] | | | | | | [address] | | | | | | [place] [address] | | | | | | [phone] | | | | | | | | +--------+ + + + + | 08/24/ | Office | Cardiology | Anisha Lopez DO | | | 2019 | Visit | | [address] | | | | | | [place] | | | | | | [address] | | | | | | | [...] | | [facility] | | | [facility] | | | - LABORATORY | + + + + + + + + | Performing | Address | City/State/Zipcode | Phone Number | | Organization | | | | + + + + + | [facility] | [address] | [place] | [phone] | | [facility] | | [address] | | | - LABORATORY | | | | + + + + + | [facility] | [address] | [place] | | | [facility] | | [address] | | | - LABORATORY | | [...] | [facility] | | | [facility] | | | | | | MEDICAL [...] by: | | | | | | [facility], | | | | | | [address] | | | | | | [place] | | | | | | [address] | | | | + + + + + + + + | Specimen | + + | Blood specimen | | (specimen) | + + + + + + + | Performing | Address | City/State/Zipcode | Phone Number | | Organization | | | | + + + + + | [facility] | [address] | [place] | [phone] | | [facility] | | [address] | | | - LABORATORY | | | | + + + + + | [facility] | [address] | [place], [place] | | | [facility] | | [address] | | | - LABORATORY | | [...] | | | | | [facility] | | | | | | [facility] [id number] CLIA: | | | | | | [id number] | | | | + + + + + + + + | Specimen | + + | Blood specimen | | (specimen) | + + + + + + + | Performing | Address | City/State/Zipcode | Phone Number | | Organization | | | | + + + + + | [facility] | [address] | [place] | [phone] | | [facility] | | [address] | | | - LABORATORY | | | | + + + + + | [facility] | [address] | [place] | | | [facility] | | [address] | | | - LABORATORY | | [...] | | | | | [facility] | | | | | | [facility] [id number] CLIA: | | | | | | [id number] | | | | + + + + + + + + | Specimen | + + | Blood specimen | | (specimen) | + + + + + + + | Performing | Address | City/State/Zipcode | Phone Number | | Organization | | | | + + + + + | [facility] | [address] | [place] | [phone] | | [facility] | | [address] | | | - LABORATORY | | | | + + + + + | [facility] | [address] | [place] | | | [facility] | | [address] | | | - LABORATORY | | [...] coccidioidomycosis,altho | | | | | | [facility] titers of 1:2 and | | | [...] Corporate | | | | | | Avenue,[place] [address] | | | | | | CLIA: [id number] | | | | + + + + + + + + | Specimen | + + | Blood specimen | | (specimen) | + + + + + + + | Performing | Address | City/State/Zipcode | Phone Number | | Organization | | | | + + + + + | [facility] | [address] | [place], [place] | [phone] | | [facility] | | [address] | | | - LABORATORY | | | | + + + + + | [facility] | [address] | [place], [place] | | | [facility] | | [address] | | | - LABORATORY | | | | + + + + + documented in this encounter Visit Diagnoses + + | Diagnosis | + + | Pulmonary nodule Solitary pulmonary nodule | + + documented in this encounter
--- OUTSIDE RECORDS SUMMARY | ~2019-05-05 | XMS | Encounter Summary ---
Demographics + + + | Address | [address] | | | [place] [address] | + + + | Home Phone [...] [place] | | | | | [address] | | + + + + + Care Team Providers + +------+ + | Care Limb Driver Name | Role | Phone | [...] | | neoplasm of | [address] | [address] | | | | | bronchus and | [place] | [address] | | | | | lung, | [place], [place] | [place], | | | | | unspecified | [address] | [place] [address] | | | | | site | Phone: | Phone: | | | | | | [phone] | [phone] | | | | | | Fax: | Fax: | | | | | | [phone] | [phone] | +--------+ + + + + + Reason for Visit + + + | Reason | Comments | + + + | IDT Note | | + + + Encounter Details +--------+ + + + + | Date | Type | Department | Care Team | Description | +--------+ + + + + | 07/26/ | Telephone | [facility] | Sujata Baca, | IDT Note | | 2014 | | MED CTR CHEMO | RN | | | | | INFUSION [address] | | | | | | [place], | | | | | | [place] [address] | | | | | | [phone] | | | +--------+ + + + [...] | | | | | [place] [address] | | | | | | [phone] | | | | | | | | +--------+ + + + + | 06/08/ | Office | Physical Medicine | Rocky Satnos, | | | 2019 | Visit | and Rehabilitation | MD Nichole Landis | | | | | | [place] | | | | | | [address] | | | | | | | | +--------+ + + + + | 06/16/ | Appointment | Pulmonology | Eveline Jaffe | | 2019 | | | MD Nichole Carter | | | | | | [address] [place] | | | | | | [place] [address] | | | | | | [phone] | | | | | | | | +--------+ + + + + | 06/16/ | Office | Pulmonology | Eveline Jaffe | | | 2019 | Visit | | MD Nichole Carter [address] | | | | | | [address] [place] | | | | | | [place] [address] | | | | | | [phone] | | | | | | | | +--------+ + + + + | 08/24/ | Office | Cardiology | Anisha Lopez DO | | | 2019 | Visit | | [address] | | | | | | [place] | | | | | | [address] | | | | | | | [...]
--- OUTSIDE RECORDS SUMMARY | ~2019-05-05 | XMS | Encounter Summary ---
Demographics + + + | Address | [address] | | | [place] [address] | + + + | Home Phone [...] [place] | | | | | [address] | | + + + + + Care Team Providers + +------+ + | Care Deep Well Contractor Name | Role | Phone | + [...] | | | hand, | | [place] [address] | | | | | unspecified | | Phone: | | | | | osteoarthrit | | [phone] | | | | | is type | | Fax: | | | | | Osteoarthrit | | [phone] | | | | | is of [...] | | | | | | | [place] REPAIR | | | | | | | INTERCARP/CA | | | | | | | RP-METACARP | | | | | | | JT | | | +--------+--------+ + + + + Encounter Details +--------+ + + + + | Date | Type | Department | Care Team | Description | +--------+ + + + + | 03/20/ | Hospital | [facility] | Giuliano Padilla, | | | 2014 | Encounter | MED CTR XRAY [address] | [address] [facility] | | | | | [place] | [place] | | | | | [place] [address] | [address] | | | | | [phone] | | | +--------+ + + + [...] | 2018 | Visit | | [address] | | | | | | [address] | | | | | | [place] [address] | | | | | | [phone] | | | | | | | | +--------+ + + + + | 06/08/ | Office | Physical Medicine | Rocky Santos, | | | 2019 | Visit | and Rehabilitation | MD [address] | | | | | | [place] | | | | | | [address] | | | | | | | | +--------+ + + + + | 06/16/ | Appointment | Pulmonology | Eveline Jaffe | | | 2019 | | | MD [address] | | | | | | [address] | | | | | | [place] [address] | | | | | | [phone] | | | | | | | | +--------+ + + + + | 06/16/ | Office | Pulmonology | Eveline Jaffe | | | 2019 | Visit | | Sherrin, MD [address] | | | | | | [address] [place] | | | | | | [place] [address] | | | | | | [phone] | | | | | | | | +--------+ + + + + | 08/24/ | Office | Cardiology | Anisha Lopez DO | | | 2019 | Visit | | [address] | | | | | | [place] | | | | | | [address] | | | | | | | [...]
--- OUTSIDE RECORDS SUMMARY | ~2019-05-05 | XMS | Encounter Summary ---
Demographics + + + | Address | [address] | | | [place] [address] | + + + | Home Phone [...] Providers + +------+ + | Care Rn Anesthesiology Name | Role | Phone | + [...] | 09/15/ | Documentati | [facility] | Liseth Hodge, | Psychosocial Support | | 2014 | on | MED CTR MEDICAL | BENEFITS TECHNICIAN | | | | | [facility] CLINIC [address] | | | | | | [address] | | | | | | [place] [address] | | | | | | [phone] | | | +--------+ + + + [...] this encounter Progress Notes Ivone Hodgelamin Vaughan, BENEFITS TECHNICIAN - 09/15/2014 4:03 PM PDTOncology Asbestos Surveyor met with Thea to adm inister the NCCN Distress Thermometer and review it with her. Thea is being treated for dipti ng cancer. She was first diagnosed in March of 2013. She lives in [place], is and has a significant other. She is on Medicaid and Medicare. She has homecare services [facility] the [facility], Senior and People with Disabilities Services - [...] coping skills and strong maximilian. This social media designer allowed for expression of feeling and provided supportive counseling and infor mation regarding the emotional aspects of a cancer diagnosis and treatment and offered liter ature on her diagnosis. Also provided her with a cookbook for people going through cancer tr eatment and referred her to the [employer] Look Good Feel Better program. She also expressed an interest in a wig and this social media designer apprised the ACS. This social wo rker encouraged Thea to continue to access individual support and apprised her of the Cance r Survivors Support Group. This social media designer is available to provide emotional support and additional community resource information and referral as needed. Patient is aware of supp ort services and how to access them. VACATION GUIDE will follow up at appointments and by [...] | | | | | [place] [address] | | | | | | [phone] | | | | | | | | +--------+ + + + + | 06/08/ | Office | Physical Medicine | Rocky Santos, | | | 2019 | Visit | and Rehabilitation | MD [address] | | | | | | [place] | | | | | | [address] | | | | | | | | +--------+ + + + + | 06/16/ | Appointment | Pulmonology | Eveline Jaffe | | | 2019 | | | MD Raul [address] | | | | | | [address] [place] | | | | | | [place] [address] | | | | | | [phone] | | | | | | | | +--------+ + + + + | 06/16/ | Office | Pulmonology | Eveline Jaffe | | | 2019 | Visit | | MD Nichole Carter [address] | | | | | | [address] [place] | | | | | | [place] [address] | | | | | | [phone] | | | | | | | | +--------+ + + + + | 08/24/ | Office | Cardiology | Anisha Lopez DO | | | 2019 | Visit | | [address] | | | | | | [place] | | | | | | [address] | | | | | | | | +--------+ + + + + documented as of this encounter Visit Diagnoses Not on filedocumented in this encounter"
--- OUTSIDE RECORDS SUMMARY | ~2019-05-05 | XMS | Encounter Summary ---
Demographics + + + | Address | [address] | | | [place] [address] | + + + | Home Phone [...] [place] | | | | | [address] | | + + + + + Care Team Providers + +------+ + | Care Standpipe Tender Name | Role | Phone | [...] [place] | | | | | [place], | [address] | | | | | [place] [address] | | | | | | [phone] | | | +--------+ + + + [...] | | | | | [place] [address] | | | | | | [phone] | | | | | | | | +--------+ + + + + | 06/08/ | Office | Physical Medicine | Rocky Santos, | | | 2019 | Visit | and Rehabilitation | MD Nichole Landis | | | | | | [place] | | | | | | [address] | | | | | | | | +--------+ + + + + | 06/16/ | Appointment | Pulmonology | Eveline Jaffe | | 2019 | | | MD [address]ole [address] | | | | | | [address] [place] | | | | | | [place] [address] | | | | | | [phone] | | | | | | | | +--------+ + + + + | 06/16/ | Office | Pulmonology | Eveline Jaffe | | | 2019 | Visit | | MD Raul [address] | | | | | | [address] [place] | | | | | | [place] [address] | | | | | | [phone] | | | | | | | | +--------+ + + + + | 08/24/ | Office | Cardiology | Anisha Lopez DO | | | 2019 | Visit | | [address] | | | | | | [place] | | | | | | [address] | | | | | | | | +--------+ + + + + documented as of this encounter Visit Diagnoses Not on filedocumented in this encounter"
--- OUTSIDE RECORDS SUMMARY | ~2019-05-05 | XMS | Encounter Summary ---
Demographics + + + | Address | [address] | | | [place] [address] | + + + | Home Phone [...] [place] | | | | | [address] | | + + + + + Care Team Providers + +------+ + | Care Roving Marker Name | Role | Phone | + [...] | Bilateral | Offenstein, | [address] | | | | | leg edema | Ayana B, | [place], | | | | | Procedures | MD [address] | [place] | | | | | ECHO | [address] | [address] | | | | | Complete | [place], | Phone: | | | | | | [place] [address] | [phone] | | | | | | | Fax: | | | | | | | [phone] | +--------+--------+ + + + + Diagnostic/Screening [...] | | Pneumonia, | [place]enstein, | [address] | | | | | unspecified | Ayana B, | [place], | | | | | organism | MD [address] | [place] [address] | | | | | Malignant | [address] | Phone: | | | | | neoplasm of | [place], | [phone] | | | | | unspecified | [place] [address] | Fax: | | | | | part of | | [phone] | | | | | right | [...] + + | 11/06/ | Office | [facility] | [place], | Chronic obstructive | | 2016 | Visit | PULMONARY [address] | Ayana Looney MD | bronchitis with | | | | [address] [place], | | pulmonary emphysema | | | | [place] [address] | | (HCC) (Primary Dx); | | | | [phone] | | Recurrent pneumonia; | | | | | | Oropharyngeal | | | | | | dysphagia; Bilateral | | | | | | leg edema; | | | | | | Recurrent squamous | | | | | | cell carcinoma of | | | | | | lung, right ([facility]) | +--------+---------+ + + + [...] Instructions Patient Instructions Ayana Taylor MD - 11/07/2015 2:07 PM PDTHave heart ultrasou nd, swallow study and chest CT. I will call with the results, and see if we can figure anything out. Work on making sure you get enough protein. Keep working on the reflux management as this could cause pneumonia as well. documented in this encounter Progress Notes Ayaan Taylor MD - 11/07/2015 1:11 PM PDTFormatting [...] w ent in to the ER at [facility] and was admitted. They had intended to keep her, but appar ently then ended up transferring her to [place]. She was 100.8 on arrival in the emergenc y room at [facility]. She was treated with Zosyn and she [...] hospitalized 5 days Rheumatoid arthritis(714.0) ([facility]) [facility]lipidemia on simvastatin Hypertension on clonidine and lisinopril Hypothyroidism GERD (gastroesophageal reflux disease) Stroke ([facility]) 2006 Stroke ([facility]) 2007 Squamous cell carcinoma of lung ([facility]) 07/2013 right lower lobe Sputum culture positive for Scopulariopsis species Recurrent squamous cell carcinoma of lung ([facility]) 07/11/[address] and [...] Port Placement; Surgeon: Chalino Chiu MD; Location: [facility] MAIN OR Colonoscopy 06/2014 Endoscopy Hand arthroplasty Left 03/20/2015 Procedure: Left 1st C.M.C. 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 Blood Pressure Monitoring (BLOOD PRESSURE CUFF) [facility] Please provide patient with approp riate sized [...] made to ensure accuracy; however, inadvertent computerized unloading checker errors may be pre sent. documented in t his encounter Plan of Treatment +--------+ + + + + | Date | Type | Specialty | Care Team | Description | +--------+ + + + + | 05/30/ | Office | Rheumatology | Santosh Sumner, | | | 2018 | Visit | | [address] | | | | | | [facility] | | | | | | [place] [address] | | | | | | [phone] | | | | | | | | +--------+ + + + + | 06/08/ | Office | Physical Medicine | Rocky Santos, | | | 2019 | Visit | and Rehabilitation | [address] | | | | | | [place] | | | | | | [address] | | | | | | | | +--------+ + + + + | 06/16/ | Appointment | Pulmonology | Eveline Jaffe | | | 2019 | | | MD Nichole Carter [address] | | | | | | [address] [place] | | | | | | [place] [address] | | | | | | [phone] | | | | | | | | +--------+ + + + + | 06/16/ | Office | Pulmonology | Eveline Jaffe | | | 2019 | Visit | | MD Nichole Carter | | | | | | [address] [place] | | | | | | [place] [address] | | | | | | [phone] | | | | | | | | +--------+ + + + + | 08/24/ | Office | Cardiology | Anisha Lopez DO | | | 2019 | Visit | | [address] | | | | | | [place] | | | | | | [address] | | | | | | | [...] COMPARISON: ESOPHAGRAM SEPTEMBER 2014 TECHNIQUE: In the [facility] | | upright position, the patient was [...] at times,like | | with riceCOMPARISON: ESOPHAGRAM MAY 2015TECHNIQUE: In the upright position, the patient | [...] + | [facility] | [address] | [place] | [phone] | | [facility] | | [address] | | | - IMAGING | | | | + + + + + ECHO Complete (11/30/2015 10:34 AM PDT) + + | Specimen | + + | | + + + +- + | Narrative | Performed At | + +- + | Transthoracic | [facility] | | Echocardiography Report (TTE) Demographics Patient Name GRISELDA | [facility] | | [facility] Room Number YOLANDA Patient | [facility] | | Number [id number] Date of Study 11/30/2015 | - IMAGING | | Visit Number [id number] | | | Referring Physician OUSMANE LANG Number | | | B Date of | | | 1945 Panel Edge Sealer HOLLEY ESTUARDO | | | | | | RDS Age 70 year(s) | | | Interpreting NOMAN HAIDER | | | Manager Stars LUIS | | | | | | [...] Room Number YOLANDA | | Patient Number [id number] Date of Study 11/30/2015 Visit Number | | [id number] Referring Physician OUSMANE LANG | | Number B Date of 1945 | | Panel Edge Sealer HOLLEY MARTE | | RDS Age 70 year(s) Interpreting NOMAN HAIDER | | Manager Stars LUIS | | LUIS TINEO MD Gender [...] [address] | [place] | [phone] | | [facility] | | [address] | | | - IMAGING | | | | + + + + + CT Chest wo Contrast (11/30/2015 9:25 AM PDT) + + | Specimen | + + | | + + + + | Addenda | + + | Addendum by Matheus Kapaida MD on 12/01/2015 1:28 PM Some fusion [...] | | Dictated and Signed by: Matheus Kang, MD | | Electronically signed: 12/01/2015 1:20 PM | + + + + + + + | Performing | Address | City/State/Zipcode | Phone Number | | Organization | | | | + + + + + | [facility] | [address] | [place], [place] | [phone] | | [facility] | | [address] | | | - IMAGING | | [...]
--- OUTSIDE RECORDS SUMMARY | ~2019-05-05 | XMS | Encounter Summary ---
Demographics + + + | Address | [address] | | | [place] [address] | + + + | Home Phone [...] [place] | | | | | [address] | | + + + + + Care Team Providers + +------+ + | Care Industrial Machinery Mechanic Name | Role | Phone | + +------+ + | Caitlin Chino MD | PCP | | + +------+ + Reason for Visit + + + | Reason | Comments | + + + | Wrist Pain | | + + + Encounter Details +--------+ + + + + | Date | Type | Department | Care Team | Description | +--------+ + + + + | 04/11/ | Telephone | [facility] | Rodney Worthy | Wrist Pain | | 2019 | | ORTHOPEDIC SURGERY | MD [address] | | | | | [address] [facility] | [facility] | | | | | [place] | [place] [address] | | | | | [address] | [phone] | | | | | [phone] | | | +--------+ + + + [...] | | | | | [place] [address] | | | | | | [phone] | | | | | | | | +--------+ + + + + | 06/08/ | Office | Physical Medicine | Rocky Santos, | | | 2019 | Visit | and Rehabilitation | [address] | | | | | | [place] | | | | | | [address] | | | | | | | | +--------+ + + + + | 06/16/ | Appointment | Pulmonology | Eveline Jaffe | | | 2019 | | | MD Nichole Carter [address] | | | | | | [address] [place] | | | | | | [place] [address] | | | | | | [phone] | | | | | | | | +--------+ + + + + | 06/16/ | Office | Pulmonology | Eveline Jaffe | | | 2019 | Visit | | MD Nichole Carter [address] | | | | | | [address] [place] | | | | | | [place] [address] | | | | | | [phone] | | | | | | | | +--------+ + + + + | 08/24/ | Office | Cardiology | Anisha Lopez DO | | | 2019 | Visit | | [address] | | | | | | [place] | | | | | | [address] | | | | | | | | +--------+ + + + + documented as of this encounter Visit Diagnoses Not on filedocumented in this encounter"
--- OUTSIDE RECORDS SUMMARY | ~2019-05-05 | XMS | Encounter Summary ---
Demographics + + + | Address | [address] | | | [place] [address] | + + + | Home Phone [...] [place] | | | | | [address] | | + + + + + Care Team Providers + +------+ + | Care Fill Plant Operator Name | Role | Phone | [...] + + | 11/29/ | Hospital | [facility] | Offenstein, | Pharyngeal dysphagia | | 2016 | Encounter | MED CTR XRAY [address] | Ayana Looney MD | (Primary Dx); | | | | [place] | [place] | Recurrent pneumonia; | | | | [place] [address] | M, Speech | Oropharyngeal | | | | [phone] | Pathologist [address] | dysphagia | | | | | [address] [place] | | | | | | [place] [address] | | | | | | [phone] | | | | | | | [...] | | | | | [place] [address] | | | | | | [phone] | | | | | | | | +--------+ + + + + | 06/08/ | Office | Physical Medicine | Rocky Santos, | | | 2019 | Visit | and Rehabilitation | MD [address] | | | | | | [place] | | | | | | [address] | | | | | | | | +--------+ + + + + | 06/16/ | Appointment | Pulmonology | Eveline Jaffe | | 2019 | | | MD Nichole Carter [address] | | | | | | [address] | | | | | | [place] [address] | | | | | | [phone] | | | | | | | | +--------+ + + + + | 06/16/ | Office | Pulmonology | Eveline Jaffe | | | 2019 | Visit | | MD Raul [address] | | | | | | [address] | | | | | | [place] [address] | | | | | | [phone] | | | | | | | | +--------+ + + + + | 08/24/ | Office | Cardiology | Anisha Lopez DO | | | 2019 | Visit | | [address] | | | | | | [place] | | | | | | [address] | | | | | | | [...] ESOPHAGRAM SEPTEMBER 2014 TECHNIQUE: In the | [facility] | | upright position, the patient [...] | + + + + + | [address] | [address] | [place] | [phone] | | [facility] | | [address] | | | - IMAGING | | [...]
--- OUTSIDE RECORDS SUMMARY | ~2019-05-05 | XMS | Encounter Summary ---
Demographics + + + | Address | [address] | | | [place] [address] | + + + | Home Phone [...] [place] | | | | | [address] | | + + + + + Care Team Providers + +------+ + | Care Asphalt Worker Name | Role | Phone | + +------+ + | Caitlin Chino MD | PCP | | + +------+ + Encounter Details +--------+ + + + + | Date | Type | Department | Care Team | Description | +--------+ + + + + | 02/25/ | Orders Only | [facility] | Santosh Sumner, | Decreased GFR | | 2019 | | RHEUMATOLOGY [address] | PA-C [address] | (Primary Dx) | | | | [place] | [facility] | | | | | [place], [place] | [place] [address] | | | | | [address] | [phone] | | | | | [phone] | | | +--------+ + + + [...] | | | | | [facility] | | | | | | [place] [address] | | | | | | [phone] | | | | | | | | +--------+ + + + + | 06/08/ | Office | Physical Medicine | Rocky Santos, | | | 2019 | Visit | and Rehabilitation | [address] | | | | | | [place] | | | | | | [address] | | | | | | | | +--------+ + + + + | 06/16/ | Appointment | Pulmonology | Eveline Jaffe | | | 2019 | | | MD Nichole [address] | | | | | | [address] [place] | | | | | | [place] [address] | | | | | | [phone] | | | | | | | | +--------+ + + + + | 06/16/ | Office | Pulmonology | Eveline Jaffe | | | 2019 | Visit | | MD Nichole [address] | | | | | | [address] [place] | | | | | | [place] [address] | | | | | | [phone] | | | | | | | | +--------+ + + + + | 08/24/ | Office | Cardiology | Anisha Lopez DO | | | 2019 | Visit | | [address] | | | | | | [place] | | | | | | [address] | | | | | | | [...]
--- OUTSIDE RECORDS SUMMARY | ~2019-05-05 | XMS | Encounter Summary ---
Demographics + + + | Address | [address] | | | [place] [address] | + + + | Home Phone [...] [place] | | | | | [address] | | + + + + + Care Team Providers + +------+ + | Care Registered Nurses Name | Role | Phone | + +------+ + | Davis Ivan MD | PCP | | + +------+ + Encounter Details +--------+ + + + + | Date | Type | Department | Care Team | Description | +--------+ + + + + | 05/20/ | Hospital | [facility] GENERIC IP | Conversion | Pain | | 2018 | Encounter | CONVERSION DEP [address] | Transaction, | | | | | [address] | Provider Unknown | | | | | [place] | [phone] | | | | | [address] | | | | | | [phone] | | | +--------+ + + + [...] | 2018 | Visit | | [address] | | | | | | [facility] | | | | | | [place] [address] | | | | | | [phone] | | | | | | | | +--------+ + + + + | 06/08/ | Office | Physical Medicine | Rocky Santos, | | | 2019 | Visit | and Rehabilitation | MD Nichole [address] | | | | | | [place] | | | | | | [address] | | | | | | | | +--------+ + + + + | 06/16/ | Appointment | Pulmonology | Eveline Jaffe | | | 2019 | | | MD Nichole [address] | | | | | | [address] [place] | | | | | | [place] [address] | | | | | | [phone] | | | | | | | | +--------+ + + + + | 06/16/ | Office | Pulmonology | Eveline Jaffe | | | 2019 | Visit | | MD Nichole [address] | | | | | | [address] [place] | | | | | | [place] [address] | | | | | | [phone] | | | | | | | | +--------+ + + + + | 08/24/ | Office | Cardiology | Anisha Lopez DO | | | 2019 | Visit | | [address] | | | | | | [place] | | | | | | [address] | | | | | | | [...] Results MRI Lumbar Spine wo Contrast (03/22/2018 7:23 PM PDT) + + | Specimen | + + | | + + + + + | Narrative | Performed At | + + + | This is a non-reportable procedure without a radiologist report and | | | is used for image storage only | | + + + + + | Procedure Note | + + | Raoul Lockwood - 01/12/2019 6:32 AM PDT This is a non-reportable procedure | | without a radiologist report and isused for image storage only | + + documented in this encounter Visit Diagnoses + + | Diagnosis | + + | Pain Generalized pain | + + documented in this encounter"
--- OUTSIDE RECORDS SUMMARY | ~2019-05-05 | XMS | Encounter Summary ---
Demographics + + + | Address | [address] | | | [place] [address] | + + + | Home Phone [...] [place] | | | | | [address] | | + + + + + Care Team Providers + +------+ + | Care Corporate Law Assistant Name | Role | Phone | [...] [place], | | | | | | [place] [address] | | | | | | [phone] | | | +--------+ + + + [...] | | | | | [place] [address] | | | | | | [phone] | | | | | | | | +--------+ + + + + | 06/08/ | Office | Physical Medicine | Rocky Santos, | | | 2019 | Visit | and Rehabilitation | [address] | | | | | | [place] | | | | | | [address] | | | | | | | | +--------+ + + + + | 06/16/ | Appointment | Pulmonology | Eveline Jaffe | | | 2019 | | | MD Nichole [address] | | | | | | [address] [place] | | | | | | [place], [place] [address] | | | | | | [phone] | | | | | | | | +--------+ + + + + | 06/16/ | Office | Pulmonology | Eveline Jaffe | | | 2019 | Visit | | MD Nichole Carter W | | | | | | [address] | | | | | | [place] [address] | | | | | | [phone] | | | | | | | | +--------+ + + + + | 08/24/ | Office | Cardiology | Anisha Lopez DO | | | 2019 | Visit | | [address] | | | | | | [place] | | | | | | [address] | | | | | | | | +--------+ + + + + documented as of this encounter Visit Diagnoses Not on filedocumented in this encounter"
--- OUTSIDE RECORDS SUMMARY | ~2019-05-05 | XMS | Clinical Summary ---
Demographics + + + | Address | [address] | | | [place] [address] | + + + | Home Phone [...] [place] | | | | | [address] | | + + + + + Care Team Providers + +------+ + | Care Fulfillment Coordinator Name | Role | Phone | [...] into | | 0 | | | Activ | | (SPIRIVA) 18 mcg | the lungs Daily. | | | | | e | | inhalation capsule | | | | | | | + + + +---------+------+------+-------+ | folic acid 1 mg | Take 1 mg by mouth | | 0 | 07/02 | | Activ | | tablet | Daily. | | | 08/18 | | e | | | | [...] 1 tablet by | | 0 | 11/29 | 11/29 | Activ | | succinate | mouth daily. | | | 01/18 | 12/18 | e | | (TOPROL-XL) 25 mg [...] Dx: COPD CASIE: | | | | 20 | | | UTHPIECE) | [...] with | 1 each | 0 | 03/01 | | Activ | | Therapy Supplies | nebulizer | | | 11/18 | | e | | (NEBULIZER | [...] mLs by | 180 | 3 | 10/1 | | Activ | | (PULMICORT) 0.5 mg/2 | nebulization Daily. | vial | | 6/20 | | e | | mL nebulizer | | | | 19 | | | | solutionIndications: | | | | | | | | Chronic obstructive | | | | | | | | pulmonary disease, | | | | | | | | unspecified COPD | | | | | | | | type ([facility]) | | | | | | | + + + +---------+------+------+-------+ | | Take 3 mLs by | 360 mL | 3 | 10/1 | | Activ | | albuterol-ipratropiu | nebulization 4 times | | | 6/20 | | e | | m 2.5-0.5 [...] | | | | type ([facility]) | | | | | | | + + + +---------+------+------+-------+ | methotrexate 2.5 | take 8 tablets by | 32 | 0 | 04/01 | | Activ | | mg tablet | mouth every week | tablet | | 07/21 | | e | | | | | | 19 | | | + + + +---------+------+------+-------+ | NARCAN 4 MG/0.1ML | instill 1 spray in 1 | | 0 | 09/29 | 04/01 | Disco | | | NOSTRIL if needed | | | | 02/18 | ntinu | | | for opioid overdose | | | 18 | 19 | ed | | | may re... (REFER TO | | | | | (Lexie | | | PRESCRIPTION | | | | | ent | | | NOTES). | | | | | Not | | | | | | | | Takin | | | | | | | | g) | + + + +---------+------+------+-------+ | loperamide | Take 2 mg by mouth | | 0 | 06/02 | 04/01 | Disco | | (IMODIUM) 2 mg | as needed. | | | 07/21 | 02/18 | ntinu | | capsule | | | | 19 | 19 | ed | | | | | | | | ([facility]ie | | | | | | | | ent | | | | | | | | Not | | | | | | | | Takin | | | | | | | | g) | + + + +---------+------+------+-------+ | furosemide (LASIX) | Take 1 tablet by | | 0 | 04/3 | 04/01 | Disco | | 20 mg tablet | mouth Daily. | | | 0 | 02/18 | ntinu | | | | | | 19 | 19 | ed | | | | | | | | (Lexie | | | | | | | | ent | | | | | | | | Not | | | | | | | | Takin | | | | | | | | g) | + + + +---------+------+------+-------+ | pseudoePHEDrine | Take 60 mg by mouth | | 0 | | 04/01 | Disco | | (SUDAFED) 60 MG | every 4 (four) hours | | | | 02/18 | ntinu | | tablet | as needed for | | | | 19 | ed | | | Congestion. | | | | | ([facility]ie | | | | | | | | ent | | | | | | | | Not | | | | | | | | Takin | | | | | | | | g) | + + + +---------+------+------+-------+ | SUDOGEST 60 MG | take 1 tablet by | | 0 | 11/29 | 04/01 | Disco | | tablet | mouth three times a | | | 20 | 02/18 | ntinu | | | day if needed for | | | 19 | 19 | ed | | | sinus congestion | | | | | (Lexie | | | | | | | | ent | | | | | | | | Not | | | | | | | | Takin | | | | | | | | g) | + + + +---------+------+------+-------+ | potassium chloride | Take 20 mEq by mouth | | 0 | | 04/01 | Disco | | (KLOR-CON M20) 20 | 2 (two) times daily | | | | 02/18 | ntinu | | mEq ER tablet | with meals. | | | | 19 | ed | | | | | | | | (Lexie | | | | | | | | ent | | | | | | | | Not | | | | | | | | Takin | | | | | | | | g) | + + + +---------+------+------+-------+ | amoxicillin | Take 250 mg by mouth | | 0 | | 04/01 | Disco | | (AMOXIL) 250 mg | 3 times daily. | | | | 02/18 | ntinu | | capsule | | | | | 19 | ed | | | | | | | | (Lexie | | | | | | | | ent | | | | | | | | Not | | | | | | | | Takin | | | | | | | | g) | + + + +---------+------+------+-------+ | methotrexate 2.5 | take 8 tablets by | 32 | 0 | 10/0 | 11/ | Disco | | mg | mouth every week | tablet | | /20 | 0/20 | ntinu | | tabletIndications: | | | | 19 | 19 | ed | | Rheumatoid | | | | | | (Reor | | arthritis, involving | | | | | | sabra) | | unspecified site, | | | [...] automatically from request for surgery | | [id number] | + + + + + | Trigger finger, left middle finger | 12/08/2018 | + + + + + | Overview: Added automatically from request for surgery | | [id number] | + + + + + | Impingement syndrome of left shoulder | 11/01/2018 | + + + | Impingement syndrome of right shoulder | 11/01/2018 | + + + | High risk medication use | 10/28/2018 | + + + + + | Overview: Last Assessment & Plan: The patient was counseled | | regarding medication compliance and routine laboratory monitoring | | due to the potential toxicities with rheumatological medications | | such as but not limited to; hematologic toxicity, | | hepatotoxicity, renal dysfunction and increased risks for | | infections.Basic Labs Monitored (CBC, CMP, ESR and CRP): Ordered | | today during clinic visitThese labs are routinely ordered due to | | high risk medication the patient is currently taking - Monitored | | for cytopenias, liver toxicity, renal dysfunction and disease | | activity. Hepatitis Panel: Negative - 07/2018This will be checked | | every 5 years based on the patients risk factors or at time of | | biologic drug change. Chest XR: Satisfactory - 2019 This will be | | checked within 1 year of initiation of rheumatological | | therapy.There is evidence of COPD Last Assessment & Plan: The | | patient was counseled regarding medication compliance and routine | | laboratory monitoring due to the potential toxicities with | | rheumatological medications such as but not limited to; | | hematologic toxicity, hepatotoxicity, renal dysfunction and | | increased risks for infections.Basic Labs Monitored (CBC, CMP, | | ESR and CRP): Ordered today during clinic visitThese labs are | | routinely ordered due to high risk medication the patient is | | currently taking - Monitored for cytopenias, liver toxicity, | | renal dysfunction and disease activity. Hepatitis Panel: Negative | | - 07/2018This will be checked every 5 years based on the patients | | risk factors or at time of biologic drug change. Chest XR: | | Satisfactory - 2018 This will be checked within 1 year of | | initiation of rheumatological therapy.There is evidence of COPD | + + + + + [...] automatically from request for surgery | | [id number] | + + + + + | Trigger middle finger of left hand | 09/07/2018 | + + + + + | Overview: Added automatically from request for surgery | | [id number] | + + + + + | [...] biopsy by | | interventional radiology at [facility] of the right lung massshows | | [...] by Dr. Mace , thoracic surgeon at [facility] for | | consideration of bronchoscopy, right [...] in August 20149. Admitted to | | [facility] on September 27, 2014 for right-sided chest | | pain secondary to acute bronchitis.10. CT chest [facility] on September 28, 2014 demonstrated persistent 32 mm x 26 mm | | x 27 mm Right Hilar Mass. Last Assessment & Plan: Stephanie | | returned to the [facility] on | | November 09, 2014 for follow up of her locally recurrent RIGHT Lung | | cancer. Interval history is notable for the fact that Thea was | | admitted to [facility] in [place], [place] for acute | | exacerbation of chronic bronchitis. During her hospitalization | | there, a chest CT was performed demonstrating a persistent 32 x | | 26 mm right hilar mass. These images were reviewed subsequently | | at the [facility] on their PACS system. Radiographic | | abnormality in the right hilum may represent persistent tumor or | | simply residual, non viable tissue following combined modality | | therapy.Since therapeutic effect of irradiation may be delayed, I | | recommended waiting an additional month before proceeding with | | repeat PET scan to assess for persistent disease. PET/CT schedule | | at [facility] on December 21, 2014 with follow up at [facility] | | the following [...] | Acid daily and doing well. She is requesting a referral for | | acupuncture which I sent in. She states the last couple weeks she | | has noticed a few more aches but states it changes when the | | weather got colder. She states otherwise her joint pain and | | stiffness are significant better. We will make no changes and see | | her back in 3 months and update blood work. Discussed risks and | | benefits of [...] + + | 04/25/ | Telephone | Physical Medicine | Rocky Santos, | Results, Imaging | | 2018 | | and Rehabilitation | MD | | +--------+ + + + + | 04/22/ | Hospital | Radiology | Rocky Santos, | Cervicalgia; History | | 2019 | Encounter | | MD | of fusion of | | | | | | cervical spine | +--------+ + + + + | 04/19/ | Office | Physical Medicine | Rocky Santos, | Chronic bilateral | | 2018 | Visit | and Rehabilitation | | low back pain | | | | | | without sciatica | | | | | | (Primary Dx); | | | | | | Hyperalgesia; | | | | | | History of lumbar | | | | | | fusion; Cervicalgia; | | | | | | History of fusion | | | | | | of cervical spine; | | | | | | Failed back syndrome | +--------+ + + + + | 04/18/ | Abstract | Physical Medicine | Provider, | | | 2018 | | and Rehabilitation | MD Alexander | | +--------+ + + + + | 04/11/ | Telephone | Orthopedic Surgery | Rodney Worthy | Wrist Pain | | 2018 | | | MD Matthias | | +--------+ + + + + | 04/10/ | Refill | Rheumatology | Santosh Sumner, | Medication Refill | | 2018 | | | MINI | | +--------+ + + + + | 03/30/ | Hospital | Radiology | Rodney Worthy | Right wrist pain | | 2018 | Encounter | | MD Matthias | | +--------+ + + + + | 03/30/ | Office | Orthopedic Surgery | Rodney Worthy | 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, | | | | | | unspecified | | | | | | osteoarthritis type | | | | | | (Primary Dx); Right | | | | | | wrist pain; Chronic | | | | | | pain in left | | | | | | shoulder | +--------+ + + + + | 03/28/ | Imaging | Radiology | Ольга, | | | 2018 | Exam | | MD Alexander | | +--------+ + + + + | 03/21/ | Orders Only | Pulmonology | Eveline Jaffe | 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 | | | | | | (Primary Dx) | +--------+ + + + + | 03/16/ | Hospital | Pulmonology | Eveline Jaffe | Chronic obstructive | | 2019 | Encounter | | MD Raul | pulmonary disease, | | | | | | unspecified COPD | | | | | | type (HCC) | +--------+ + + + + | 03/16/ | Office | Pulmonology | SoilaEveline acevedo | Dyspnea on exertion | | 2019 | Visit | | MD Raul | (Primary Dx); | | | | | | Chronic obstructive | | | | | | pulmonary disease, | | | | | | unspecified COPD | | | | | | type (HCC) | +--------+ + + + + | 03/10/ | Office | Cardiology | Anisha Lopez DO | Hypokalemia (Primary | | 2019 | Visit | | | Dx); Paroxysmal | | | | | | atrial fibrillation | | | | | | ([facility]); Essential | | | | | | hypertension; | | | | | | Cerebrovascular | | | | | | accident (CVA), | | | | | | unspecified | | | | | | mechanism (HCC); | | | | | | Hyperlipidemia, | | | | | | unspecified | | | | | | hyperlipidemia type | +--------+ + + + + | 03/07/ | Refill | Rheumatology | Evelyn Leyva | Medication Refill | 2018 | | | MINI Tim | | +--------+ + + + + | 03/01/ | Office | Orthopedic Surgery | Rodney Worthy | Impingement syndrome | | 2018 | Visit | | MD Matthias | of left shoulder | | | | | | (Primary Dx); Muscle | | | | | | left arm weakness | +--------+ + + + + | 02/25/ | Orders Only | Rheumatology | Santosh Sumner, | Decreased GFR | | 2018 | | | MINI | (Primary Dx) | +--------+ + + + + | 02/22/ | Office | Rheumatology | Santosh Sumner, | Rheumatoid | | 2019 | Visit | | MINI | arthritis, involving | | | | [...] + | 02/22/ | Orders Only | | Denver Doss, | Rheumatoid arthritis | | 2019 | | | Quality Officer | (HCC) | +--------+ + + + + from [...] | + + Last Filed Vital Signs + [...] + + + + Plan of Treatment +--------+ + + + + | Date | Type | Specialty | Care Team | Description | +--------+ + + + + | 05/30/ | Office | Rheumatology | Santosh Sumner, | | | 2018 | Visit | | MINI [address] | | | | | | [address] | | | | | | [place] [address] | | | | | | [phone] | | | | | | | | +--------+ + + + + | 06/08/ | Office | Physical Medicine | Rocky Santos, | | | 2019 | Visit | and Rehabilitation | MD Nichole Landis | | | | | | [place] | | | | | | [id number] | | | | | | | | +--------+ + + + + | 06/16/ | Appointment | Pulmonology | Eveline Jaffe | | 2019 | | | MD Nichole [address] | | | | | | [address] | | | | | | [place] [address] | | | | | | [phone] | | | | | | | | +--------+ + + + + | 06/16/ | Office | Pulmonology | Eveline Jaffe | | | 2019 | Visit | | MD Raul [address] | | | | | | [address] | | | | | | [place] [address] | | | | | | [phone] | | | | | | | | +--------+ + + + + | 08/24/ | Office | Cardiology | Ainsha Lopez DO | | | 2019 | Visit | | [address] | | | | | | [place] | | | | | | [address] | | | | | | | | +--------+ + + + + + + + [...] + + | Vaccine: Influenza | | 03/02/2018, 02/24/2018, | | | (#1) | 9 | 04/10/2017, Additional history | | | | | [...] | 07/14/2014, Additional history | | | | | [...] | N/A: | | | 08/20/ | [id number] | | Dbx 2.5ml - | | Spine | | | 2014 | | | [id number]: | | Cervic | | | | /[id number] | | Qty: 1 on 01/19/2013 by | | al | | | | [id number] | | Silviano Cabrera MD | | | | | | [id number] | | | | | | | | 8 / | + +------+--------+ +--------+--------+--------+ | Cage Triad Allograft | | N/A: | | | 08/16/ | [id number] | | [id number] | | Spine | | | 2017 | 7 | | [id number]: Qty: 1 | | Cervic | | | | /[id number] | | on 01/19/2013 by Rick, | | al | | | | 8-185 | | MD Silviano | | | | | | / | + +------+--------+ +--------+--------+--------+ | Cage Triad Allograft 6mm - | | N/A: | | | 06/23/ | [id number] | | [id number]: Qty: 1 | | Spine | | | 2018 | 6 | | on 01/19/2013 by Rick, | | Cervic | | | | /86277 | | MD Silviano | | al | | | | 0-206 | | | | | | | | / | + +------+--------+ +--------+--------+--------+ | Screw Vectra Self Drilling | | N/A: | | | | 04.613 | | Variable Angle 4.0x14mm - | | Spine | | | | .514 | | [id number]: Qty: 2 on | | Cervic | | | | /80962 | | 01/19/2013 by Silviano Cabrera, | | al | | | | 514 / | | | | | | | | | + +------+--------+ +--------+--------+--------+ | Screw Vectra Self Drilling | | N/A: | | | | 04.613 | | Variable Angle [id number] - | | Spine | | | | .516 | | [id number]: Qty: 2 on | | Cervic | | | | /12823 | | 01/19/2013 by Silviano Cabrera, | | al | | | | 516 / | | MD | | | | | | | + +------+--------+ +--------+--------+--------+ | Screw Vectra Self Drilling | | N/A: | | | | 04.613 | | Fixed Angle 4.0x14mm - | | Spine | | | | .714 | | [id number]: Qty: 2 on | | Cervic | | | | /90959 | | 01/19/2013 by Silviano Cabrera, | | al | | | | 714 / | | MD | | | | | | | + +------+--------+ +--------+--------+--------+ | Plate Vectra Cervical 30mm - | | N/A: | | | | 04.613 | | [id number]: Qty: 1 on | | Spine | | | | .130 | | 01/19/2013 by Silviano Cabrera, | | Cervic | | | | /57544 | | MD | | al | | | | 130 / | + +------+--------+ +--------+--------+--------+ | Allograft Osteocell 10cc | | | | | 08/25/ | [id number] | | [id number] | | | | | 2018 | 0 | | [id number]: Qty: 1 | | | | | | /61398 | | on 04/06/2013 | | | | | | 1542 / | + +------+--------+ +--------+--------+--------+ | Allograft Putty Freeze Dried | | N/A: | | | 11/10/ | [id number] | | Demineralized Bone Matrix Dbx | | Spine | | | 2014 | | | 1ml - | | Cervic | | | | /24768 | | [id number]: | | al | | | | [id number] | | Qty: 1 on 04/06/2013 by | | | | | | [id number] | | Silviano Cabrera MD | | | | | | 1 / | + +------+--------+ +--------+--------+--------+ | Allograft Putty Freeze Dried | | N/A: | | | 10/20/ | [id number] | | Dbx 2.5ml - | | Spine | | | 2014 | | | [id number]: | | Cervic | | | | /92414 | | Qty: 1 on 04/06/2013 by | | al | | | | 756285 | | Silviano Cabrera MD | | | | | | 577276 | | | | | | | | 3 / | + +------+--------+ +--------+--------+--------+ | Screw Vuepoint Post Cerv | | N/A: | | | | 106420 | | 3.5x12mm - [id number]: | | Spine | | | | 2 | | Qty: 3 on 04/06/2013 by | | Altagraciaic | | | | /22179 | | Silviano Cabrera MD | | al | | | | 12 / | + +------+--------+ +--------+--------+--------+ | Screw Vuepoint Post Cerv | | N/A: | | | | 326619 | | 3.5x14mm - [id number]: | | Spine | | | | 4 | | Qty: 1 on 04/06/2013 by | | Cervic | | | | /42921 | | Silviano Cabrera MD | | al | | | | 14 / | + +------+--------+ +--------+--------+--------+ | Srini Vuepoint 3.5x60mm - | | N/A: | | | | 862804 | | [id number]: Qty: 1 on | | Spine | | | | 0 | | 04/06/2013 by Silviano Cabrera, | | Cervic | | | | /06567 | | MD | | al | | | | 60 / | + +------+--------+ +--------+--------+--------+ | Screw Vuepoint Post Cerv Set | | N/A: | | | | 902608 | | Tulip & Hook - | | Spine | | | | 0 | | [id number]: Qty: 4 on | | Cervic | | | | /44145 | | 04/06/2013 by Silviano Cabrera, | | al | | | | 00 / | | MD | | | | | | | + +------+--------+ +--------+--------+--------+ | Graft Sponge Kit Bone Infuse | | | MEDTRONIC - | | | [id number] | | Medium 56ml - | | | MEDT | | | 0 / | | [id number]: Qty: 1 on | | | | | | /[id number] | | 03/29/2014 by Silviano Cabrera, | | | | | | 05AA6 | | MD | | | | | | | + +------+--------+ +--------+--------+--------+ | Triad Alif Allograft | | | NUVASIVE - | | 08/02/ | 383404 | | [id number]: Qty: 1 on | | | NVSV | | 2018 | 4 | | 03/29/2014 by Silviano Cabrera, | | | | | | /12477 | | MD | | | | | | 0-065 | | | | | | | | / | + +------+--------+ +--------+--------+--------+ | Screw Brigade 5.5x25mm - | | | NUVASIVE - | | | 105368 | | [id number]: Qty: 2 on | | | NVSV | | | 5 / | | 03/29/2014 by Silviano Cabrera, | | | | | | | | MD | | | | | | | + +------+--------+ +--------+--------+--------+ | Screw Brigade 5.5x30mm - | | | NUVASIVE - | | | 437235 | | [id number]: Qty: 4 on | | | NVSV | | | 0 / / | | 03/29/2014 by Silviano Cabrera, | | | | | | | | MD | | | | | | | + +------+--------+ +--------+--------+--------+ | Cage Arnaldo Alifidel Allograft | | | NUVASIVE - | | 07/14/ | [id number] | | [id number] - | | | NVSV | | 2012 | / / | | [id number]: Qty: 1 on | | | | | | | | 03/29/2014 by Silviano Cabrera, | | | | | | | | MD | | | | | | | + +------+--------+ +--------+--------+--------+ | Screw Brigade 5.5x35mm - | | | NUVASIVE - | | | [id number] | | [id number]: Qty: 2 on | | | NVSV | | | / | | 03/29/2014 by Silviano Cabrera, | | | | | | | | MD | | | | | | | + +------+--------+ +--------+--------+--------+ | Allograft Block Extra Large | | N/A: | NUVASIVE - | | 09/27/ | [id number] | | Formagraft Large - | | Back | NVSV | | 2018 | 5 / | | [id number]: Qty: 1 on | | | | | | /FG-14 | | 03/29/2014 by Silviano Cabrera, | | | | | | 13 | | MD | | | | | | | + +------+--------+ +--------+--------+--------+ | Graft Sponge Kit Bone Infuse | | N/A: | MEDTRONIC - | | 08/27/ | [id number] | | Large 8ml - | | Back | MEDT | | 2016 | 0 / | | [id number]: Qty: 1 on | | | | | | /[id number] | | 03/29/2014 by Silviano Cabrera, | | | | | | [id number] | | | | | | | | | + +------+--------+ +--------+--------+--------+ | Allograft Freeze Dried | | N/A: | LIFENET | | 11/13/ | [id number] | | Demineralized Cancellous Mix | | Spine | HEALTH - | | 2016 | T | | Ic Graft Chamber 15cc - | | Lumbar | LIFN | | | /22980 | | [id number]: Qty: | | | | | | 57-303 | | 1 on 03/31/2014 by Rick, | | | | | | 1 / | | MD Silviano | | | | | | | + +------+--------+ +--------+--------+--------+ | Graft Sponge Kit Bone Infuse | | N/A: | MEDTRONIC - | | 04/01/ | [id number] | | Medium 56ml - | | Spine | MEDT | | 2015 | 0 | | [id number]: Qty: 1 | | Lumbar | | | | /[id number] | | on 03/31/2014 by Rick, | | | | | | 05AAW | | MD Silviaon | | | | | | / | + +------+--------+ +--------+--------+--------+ | Allograft Freeze Dried | | N/A: | LIFENET | | 11/01/ | [id number] | | Demineralized Cancellous Mix | | Spine | HEALTH - | | 2016 | T | | Ic Graft Chamber 15cc - | | Lumbar | LIFN | | | /28125 | | [id number]: Qty: | | | | | | 37-301 | | 1 on 03/31/2014 by Rick, | | | | | | 1 / | | MD Silviano | | | | | | | + +------+--------+ +--------+--------+--------+ | Screw Precept Shank Mod | | N/A: | NUVASIVE - | | | [id number] | | 7.5x50mm - [id number]: | | Spine | NVSV | | | 0 / / | | Qty: 4 on 03/31/2014 by | | Lumbar | | | | | | Silviano Cabrera MD | | | | | | | + +------+--------+ +--------+--------+--------+ | Screw Precept Shank Mod | | N/A: | NUVASIVE - | | | [id number] | | 6.5x50mm - [id number]: | | Spine | NVSV | | | 0 / / | | Qty: 2 on 03/31/2014 by | | Lumbar | | | | | | Silviano Cabrera MD | | | | | | | + +------+--------+ +--------+--------+--------+ | Screw Locking For 6.25mm Srini | | N/A: | NUVASIVE - | | | [id number] | | - [id number]: Qty: 6 | | Spine | NVSV | | | 1 / / | | on 03/31/2014 by Rick, | | Lumbar | | | | | | MD Silviano | | | | | | | + +------+--------+ +--------+--------+--------+ | Screw Tulip For 6.25mm Srini - | | N/A: | NUVASIVE - | | | [id number] | | [id number]: Qty: 6 on | | Spine | NVSV | | | 2 / / | | 03/31/2014 by Silviano Cabrera, | | Lumbar | | | | | | | | | | | | | + +------+--------+ +--------+--------+--------+ | Allograft Freeze Dried | | N/A: | LIFENET | | 11/08/ | [id number] | | Demineralized Cancellous Mix | | Spine | HEALTH - | | 2016 | T | | Ic Graft Chamber 15cc - | | Lumbar | LIFN | | | /[id number] | | [id number]: Qty: | | | | | | 98-303 | | 1 on 03/31/2014 by Rick, | | | | | | 9 / | | MD Silviano | | | | | | | + +------+--------+ +--------+--------+--------+ | Allograft Freeze Dried | | N/A: | LIFENET | | 08/16/ | [id number] | | Demineralized Cancellous Mix | | Spine | HEALTH - | | 2016 | T | | Ic Graft Chamber 10cc - | | Lumbar | LIFN | | | /[id number] | | [id number]: Qty: | | | | | | 22-301 | | 1 on 03/31/2014 by Rick, | | | | | | 3 / | | MD Silviano | | | | | | | + +------+--------+ +--------+--------+--------+ | Allograft Freeze Dried | | N/A: | LIFENET | | 07/13/ | [id number] | | Demineralized Cancellous Mix | | Spine | HEALTH - | | 2017 | T | | Ic Graft Chamber 5cc - | | Lumbar | LIFN | | | /[id number] | | [id number]: Qty: | | | | | | 40-301 | | 1 on 03/31/2014 by Rick, | | | | | | 1 / | | MD Silviano | | | | | | | + +------+--------+ +--------+--------+--------+ | Srini Spherx Dual Ball Ti Dbr | | N/A: | NUVASIVE - | | | [id number] | | Ii 42.5mm - | | Spine | NVSV | | | 5 / / | | [id number]: Qty: 2 on | | Lumbar | | | | | | 03/31/2014 by Silviano Cabrera, | | | | | | | | | | | | | | | + +------+--------+ +--------+--------+--------+ | Port Imp Mri Powerport 8fr - | | | BARD ACCESS | | 03/20/ | [id number] | | [id number]: Qty: 1 on | | | SYSTEMS - | | 2015 | 0 / | | 07/28/2014 by , | | | ELLEN | | | /[id number] | | Chalino Gu MD, FACS at [facility] | | | | | | 003 | | [facility] | | | | | | | | [facility] | | | | | | | + +------+--------+ +--------+--------+--------+ | Mini TightropeImplanted: Qty: | | Right: | ARTHREX | | 11/18/ | [id number] | | 1 on 03/20/2015 by Randy, | | Hand | ARTHREX | | 2020 | 9DS / | | Giuliano Briones MD at [facility] | | | /[id number] | | [facility] | | | | | | [...] + | IMAGING REPORT - | | 03/15/2019 | | Results for this | | EXTERNAL SCAN | | 12:00 AM | | procedure are in the | | | | PDT | | results section. | + +--------+ + + + | MRI SHOULDER LEFT WO | Routin | 03/15/2019 | | Results for this | | CONTRAST | e | 12:00 AM | | procedure are in the | | | | PDT | | results section. | + +--------+ + + + | LABS - EXTERNAL SCAN | | 03/11/2019 | | Results for this | | [...] | + +--------+ + + + | LABS - EXTERNAL SCAN | | 02/15/2019 | | Results for this | | | | 12:00 AM | | procedure are in the | | | | PDT | | results section. | + +--------+ + + + | LABS - EXTERNAL SCAN | | 02/15/2019 | | Results for this | | | | 12:00 AM | | procedure are in the | | | | PDT | | results section. | + +--------+ + + + from Last 3 Months Results XR Cervical Spine 4 or 5 [...] as well as | | | posterior srini and screw hardware again extends from C4 [...] | fusion hardware as well as posterior srini and screw hardwareagain extends from C4 through [...] | | + +---------+ + + XR Wrist Right 3 + Vw (03/30/2019 [...] + + IMAGING REPORT - EXTERNAL SCAN (03/15/2019 12:00 AM PDT) + + + | Narrative | Performed At | + + + | Ordered by an | | | unspecified provider. | | + + + MRI Shoulder Left wo Contrast (03/15/2019 12:00 AM PDT) + + | Specimen | [...] | | | + +---------+ + + LABS - EXTERNAL SCAN (03/11/2019 12:00 AM PDT)Only the most recent of 3 results within the time period is included. + + + | Narrative | Performed At | + + + | Ordered by an | | | unspecified provider. | | + + + Sedimentation Rate (02/22/2019 1:58 PM PDT) + + + + + + | Component | Value | Ref Range | Performed | Pathologist | | | | | At | Signature | + + + + + + | ESR | 65 (H)Comment: Testing | 0 - 30 mm/Hr | REFERENCE | | | | performed at [facility];[address] | | LAB | | | | [place] | | [facility] | | | | [address];[place] [address] | | LABORATORY | | + + + + + + + + | Specimen | + + | Blood | + + + + + + + | Performing | Address | City/State/Zipcode | Phone Number | | Organization | | | | + + + + + | REFERENCE LAB | [address] [place] [address] | [place] [address] | [phone] | | [facility] | Blvd[address] | | | | LABORATORY | | | | + + + + + | REFERENCE LAB | [address] [place] [address] | [place] [address] | | | [facility] | Blvd. | [...] LAB | | | | performed at [facility];[address] | | [facility] | | | | [place] | | LABORATORY | | | | Blvd;[place] [address] | | | | | | | | | | + + + + + + + + | Specimen | + + | Blood | + + + + + + + | Performing | Address | City/State/Zipcode | Phone Number | | Organization | | | | + + + + + | REFERENCE LAB | [address] [place] [address] | [place] [address] | [phone] | | [facility] | Blvd. | | | | LABORATORY | | | | + + + + + | REFERENCE LAB | [address] [place] [address] | [place] [address] | | | [facility] | Blvd. | [...] REFERENCE | | | | performed at [facility];[address] | | LAB | | | | [place] | | [facility] | | | | [address];[place] [address] | | LABORATORY | | + + + + + + + + | Specimen | + + | Blood | + + + + + + + | Performing | Address | City/State/Zipcode | Phone Number | | Organization | | | | + + + + + | REFERENCE LAB | [address] | [place] [address] | [phone] | | [facility] | Blvd[address] | | | | LABORATORY | | | | + + + + + | REFERENCE LAB | [address] [facility] | [place] [address] | | | [facility] | Blvd. | [...] | | | | | performed at [facility];[address] | | | | | | [facility] | | | | | | Blvd;[place] [address] | | | | | | | | | | + + + + + + + + | Specimen | + + | Blood | + + + + + + + | Performing | Address | City/State/Zipcode | Phone Number | | Organization | | | | + + + + + | REFERENCE LAB | [address] [facility] | [place] [address] | [phone] | | [facility] | Blvd. | | | | LABORATORY | | | | + + + + + | REFERENCE LAB | [address] [facility] | [place] [address] | | | [facility] | Blvd. | [...] + +--------+ +--------+ +---------+--------+ | [employer] | [facility] | [id number] | 06/01/19 | | | Medica | | | HEALTH | | 17-Pre | | | re | | | MDCR | | sent | | | | + +--------+ +--------+ +---------+--------+ | [employer] | [facility] | [id number] | 06/01/19 | | | Medica | | | HEALTH | | 17-12/ | | | re | | | MDCR | | 31/201 | | | | | | | | 9 | | | | + +--------+ +--------+ +---------+--------+ | [employer] | [employer] | [id number] | | [phone] | | Medica | | MEDICAID HMO | HEALTH | | 012-Pr | 1 | | id | | | MDCD | | esent | | | | | | [place]MO [place] | | | | | | + +--------+ +--------+ +---------+--------+ | [employer] | [employer] | [id number] | | [phone] | | Medica | | MEDICAID HMO [...] Self | [birth year] | | [address] | | Mary | al/Fam | | 1945 | [phone] | [place], [place] | | | jana | | | 1 (Home) | [address] | + +--------+ +--------+ + + | Thea Carmona | Person | Self | [birth year] | | [address] | | Mary | al/Fam | | 1945 | [phone] | [place], [place] | | | jana | | | 1 (Home) | [address] | + +--------+ +--------+ + + Advance Directives + + + + + | Type | Date Recorded | Patient | Explanation | | | | Planner | | + + + + + | Power of | | | | | Railroad Watchman | | | | + + + [...]
--- OUTSIDE RECORDS SUMMARY | ~2019-05-05 | XMS | Encounter Summary ---
Demographics + + + | Address | [address] | | | [place] [address] | + + + | Home Phone [...] [place] | | | | | [address] | | + + + + + Care Team Providers + +------+ + | Care Coil Winder Strap Name | Role | Phone | + [...] W | | | | | | [place] | [address] | | | | | | GUIDE NEEDLE | [place], | | | | | | BIOPSY [place] | [place] [address] | | | | | | DRAIN/INJECT [...] | regarding biopsy) | | | | [address] [place], | | | | | | [place] [address] | | | | | | [phone] | | | +--------+ + + + [...] [address] | | | | | | [place] [address] | | | | | | [phone] | | | | | | | | +--------+ + + + + | 06/08/ | Office | Physical Medicine | Rocky Santos, | | | 2019 | Visit | and Rehabilitation | MD [address] | | | | | | [place] | | | | | | [address] | | | | | | | | +--------+ + + + + | 06/16/ | Appointment | Pulmonology | Eveline Jaffe | | 2019 | | | MD Nichole Carter | | | | | | [address] | | | | | | [place] [address] | | | | | | [phone] | | | | | | | | +--------+ + + + + | 06/16/ | Office | Pulmonology | Eveline Jaffe | | | 2019 | Visit | | MD Raul [address] | | | | | | [address] [place] | | | | | | [place] [address] | | | | | | [phone] | | | | | | | | +--------+ + + + + | 08/24/ | Office | Cardiology | Anisha Lopez DO | | | 2019 | Visit | | [address] | | | | | | [place] | | | | | | [address] | | | | | | | [...]
--- OUTSIDE RECORDS SUMMARY | ~2019-05-05 | XMS | Encounter Summary ---
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[address] | [place] [address] | | | | | factor of | [place], | Phone: | | | | | right hand | [place] | [phone] | | | | | without | [address] | Fax: | | | | | organ or | Phone: | [phone] | | | | | systems | [phone] | | | | | | involvement | Fax: | | | | | | ([facility]) | [phone] | | +--------+--------+ + + + + Encounter Details +--------+---------+ + + + | Date | Type | Department | Care Team | Description | +--------+---------+ + + + | 09/23/ | Office | [facility] [place] | Giuliano Padilla, | Osteoarthritis of | | 2018 | Visit | ORTHOPEDIC SURGERY | [address] | first | | | | [address] | [place] | carpometacarpal | | | | [place] | [address] | (CMC) joint of one | | | | [address] | | hand (Primary Dx) | | | | [phone] | | | +--------+---------+ + + + [...] | | | | | [place] [address] | | | | | | [phone] | | | | | | | | +--------+ + + + + | 06/08/ | Office | Physical Medicine | Rocky Santos, | | | 2019 | Visit | and Rehabilitation | MD Nichole Landis | | | | | | [place] | | | | | | [address] | | | | | | | | +--------+ + + + + | 06/16/ | Appointment | Pulmonology | Eveline Jaffe | | 2019 | | | MD Nichole Carter [address] | | | | | | [address] | | | | | | [place] [address] | | | | | | [phone] | | | | | | | | +--------+ + + + + | 06/16/ | Office | Pulmonology | Eveline Jaffe | | | 2019 | Visit | | MD Raul [address] | | | | | | [address] | | | | | | [place] [address] | | | | | | [phone] | | | | | | | | +--------+ + + + + | 08/24/ | Office | Cardiology | Anisha Lopez DO | | | 2019 | Visit | | [address] | | | | | | [place] | | | | | | [address] | | | | | | | | +--------+ + + + + documented as of this encounter Visit Diagnoses + + | Diagnosis | + + | 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
--- OUTSIDE RECORDS SUMMARY | ~2019-05-05 | XMS | Encounter Summary ---
Demographics + + + | Address | [address] | | | [place] [address] | + + + | Home Phone [...] [place] | | | | | [address] | | + + + + + Care Team Providers + +------+ + | Care Gate Cutter Name | Role | Phone | [...] Malignant | MD Adelita | [address] | | | | | neoplasm of | [address] | [place], | | | | | main | [address] | [place] | | | | | bronchus, | [place], | [address] | | | | | right (HCC) | [place] | Phone: | | | | | Procedures | [address] | [phone] | | | | | MRI Brain w | Phone: | Fax: | | | | | wo Contrast | [phone] | [phone] | | | | | | Fax: | | | | | | | [phone] | | +--------+--------+ + + + + [...] Malignant | MD Adelita | [address] | | | | | neoplasm of | [address] | [place], | | | | | main | [address] | [place] | | | | | bronchus, | [place], | [address] | | | | | right (HCC) | [place] | Phone: | | | | | Procedures | [address] | [phone] | | | | | MRI Brain w | Phone: | Fax: | | | | | wo Contrast | [phone] | [phone] | | | | | | Fax: | | | | | | | [phone] | | +--------+--------+ + + + + Encounter Details +--------+ + + + + | Date | Type | Department | Care Team | Description | +--------+ + + + + | 09/02/ | Hospital | [facility] | Adelita Lu MD | 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 [address] | [address] | of main bronchus, | | | | [address] [place], | [place], [place] | right (HCC) (Primary | | | | [place] [address] | [address] | Dx); Squamous cell | | | | [phone] | [phone] | carcinoma of lung, | | | [...] | | | | | [place] [address] | | | | | | [phone] | | | | | | | | +--------+ + + + + | 06/08/ | Office | Physical Medicine | Rocky Santos, | | | 2019 | Visit | and Rehabilitation | MD [address]arela [address] | | | | | | [place] | | | | | | [address] | | | | | | | | +--------+ + + + + | 06/16/ | Appointment | Pulmonology | Eveline Jaffe | | 2019 | | | MD Nichole Carter [address] | | | | | | [address] | | | | | | [place] [address] | | | | | | [phone] | | | | | | | | +--------+ + + + + | 06/16/ | Office | Pulmonology | Eveline Jaffe | | | 2019 | Visit | | MD Raul [address] | | | | | | [place] [address] | | | | | | [place] [address] | | | | | | [phone] | | | | | | | | +--------+ + + + + | 08/24/ | Office | Cardiology | Anisha Lopez DO | | | 2019 | Visit | | [address] | | | | | | [place] | | | | | | [id number] | | | | | | | [...] | 0.97 | 0.60 - 1.30 | [facility] | | | | | [...] mL/min/1.73m2 | [facility] | | | [facility] | RATE,ESTIMATED | | MEDICAL | | | | mL/min/1.24e0Wikz than | | CENTER - | | [...] + | [facility] | [address] | [place], [place] | [phone] | | [facility] | | [address] | | | - LABORATORY | | | | + + + + + | [facility] | [address] | [place], [place] | | | [facility] | | [address] | | | - LABORATORY | | [...] + | [facility] | [address] | [place] | [phone] | | [facility] | | [address] | | | - LABORATORY | | | | + + + + + | [facility] | [address] | [place] | | | [facility] | | [address] | | | - LABORATORY | | [...] + | MISCELLANEOUS LAB | | | [phone] | + +---------+ + + | MISCELANIOUS LAB | | | [phone] | + +---------+ + + documented in [...]
--- OUTSIDE RECORDS SUMMARY | ~2019-05-05 | XMS | Encounter Summary ---
Demographics + + + | Address | [address] | | | [place] [address] | + + + | Home Phone [...] [place] | | | | | [address] | | + + + + + Care Team Providers + +------+ + | Care Mink Rancher Name | Role | Phone | + [...] [place] | | | | | | [address] | | | | | | [phone] | | | +--------+ + + + [...] | | | | | | [facility] | | | | | | [place] [address] | | | | | | [phone] | | | | | | | | +--------+ + + + + | 06/08/ | Office | Physical Medicine | Rocky Santos, | | | 2019 | Visit | and Rehabilitation | MD [address]are[address] | | | | | | [place] | | | | | | [address] | | | | | | | | +--------+ + + + + | 06/16/ | Appointment | Pulmonology | Eveline Jaffe | | | 2019 | | | MD Nichole Carter [address] | | | | | | [address] [place] | | | | | | [place] [address] | | | | | | [phone] | | | | | | | | +--------+ + + + + | 06/16/ | Office | Pulmonology | Eveline Jaffe | | | 2019 | Visit | | MD Nichole Carter | | | | | | [address] | | | | | | [place] [address] | | | | | | [phone] | | | | | | | | +--------+ + + + + | 08/24/ | Office | Cardiology | Anisha Lopez DO | | | 2019 | Visit | | [address] | | | | | | [place] | | | | | | [phone] | | | | | | | | +--------+ + + + + documented as of this encounter Visit Diagnoses Not on filedocumented in this encounter"
--- OUTSIDE RECORDS SUMMARY | ~2019-05-05 | XMS | Encounter Summary ---
Demographics + + + | Address | [address] | | | [place] [address] | + + + | Home Phone [...] [place] | | | | | [address] | | + + + + + Care Team Providers + +------+ + | Care Bottom Hoop Driver Name | Role | Phone | [...] + + | 08/04/ | Hospital | [facility] | Jimmy Banegas DO | | | 2014 | Encounter | MED CTR RADIATION | [address] | | | | | ONCOLOGY [address] | [place] | | | | | [place], | [address] | | | | | [place] [address] | | | | | | [phone] | | | +--------+ + + + [...] | | | | | [place] [address] | | | | | | [phone] | | | | | | | | +--------+ + + + + | 06/08/ | Office | Physical Medicine | Rocky Santos, | | | 2019 | Visit | and Rehabilitation | [address] | | | | | | [place] | | | | | | [address] | | | | | | | | +--------+ + + + + | 06/16/ | Appointment | Pulmonology | Eveline Jfafe | | | 2019 | | | MD Nichole [address] | | | | | | [address] [place] | | | | | | [place] [address] | | | | | | [phone] | | | | | | | | +--------+ + + + + | 06/16/ | Office | Pulmonology | Eveline Jaffe | | | 2019 | Visit | | MD Nichole Carter | | | | | | [address] [place] | | | | | | [place] [address] | | | | | | [phone] | | | | | | | | +--------+ + + + + | 08/24/ | Office | Cardiology | Anisha Lopez DO | | | 2019 | Visit | | [address] | | | | | | [place] | | | | | | [id number] | | | | | | | | +--------+ + + + + documented as of this encounter Visit Diagnoses Not on filedocumented in this encounter"
--- OUTSIDE RECORDS SUMMARY | ~2019-05-05 | XMS | Encounter Summary ---
Demographics + + + | Address | [address] | | | [place] [address] | + + + | Home Phone [...] [place] | | | | | [address] | | + + + + + Care Team Providers + +------+ + | Care Terrazzo Mechanic Helper Name | Role | Phone | [...] | | | | | [address] | [address] [facility] | | | | | [place] | [place] [address] | | | | | [address] | [phone] | | | | | [phone] | | | +--------+ + + + [...] | 2018 | Visit | | [address] | | | | | | [facility] | | | | | | [place] [address] | | | | | | [phone] | | | | | | | | +--------+ + + + + | 06/08/ | Office | Physical Medicine | Rocky Santos, | | | 2019 | Visit | and Rehabilitation | MD Nichole [address] | | | | | | [place] | | | | | | [address] | | | | | | | | +--------+ + + + + | 06/16/ | Appointment | Pulmonology | Eveline Jaffe | | 2019 | | | MD Nichole Carter | | | | | | [address] [place] | | | | | | [place] [address] | | | | | | [phone] | | | | | | | | +--------+ + + + + | 06/16/ | Office | Pulmonology | Eveline Jaffe | | | 2019 | Visit | | MD Nichole Carter | | | | | | [address] [place] | | | | | | [place] [address] | | | | | | [phone] | | | | | | | | +--------+ + + + + | 08/24/ | Office | Cardiology | Lopez, Anisha, DO | | | 2020 | Visit | | [address] | | | | | | [place] | | | | | | [address] | | | | | | | | +--------+ + + + + documented as of this encounter Visit Diagnoses Not on filedocumented in this encounter"
--- OUTSIDE RECORDS SUMMARY | ~2019-05-05 | XMS | Encounter Summary ---
Demographics + + + | Address | [address] | | | [place] [address] | + + + | Home Phone [...] [place] | | | | | [address] | | + + + + + Care Team Providers + +------+ + | Care Career Information Specialist Name | Role | Phone | [...] Looney MD | | | | | [place], | | | | | | [place] [address] | | | | | | [phone] | | | +--------+ + + + [...] | | | | | | [facility] | | | | | | [place] [address] | | | | | | [phone] | | | | | | | | +--------+ + + + + | 06/08/ | Office | Physical Medicine | Rocky Santos, | | | 2019 | Visit | and Rehabilitation | MD [address] | | | | | | [place] | | | | | | [phone] | | | | | | | | +--------+ + + + + | 06/16/ | Appointment | Pulmonology | Eveline Jaffe | | | 2019 | | | MD Nichole Carter [address] | | | | | | [address] [place] | | | | | | [place] [address] | | | | | | [phone] | | | | | | | | +--------+ + + + + | 06/16/ | Office | Pulmonology | Eveline Jaffe | | | 2019 | Visit | | MD Nichole Carter | | | | | | [address] [place] | | | | | | [place] [address] | | | | | | [phone] | | | | | | | | +--------+ + + + + | 08/24/ | Office | Cardiology | Anisha Lopez DO | | 2019 | Visit | | [address] | | | | | | [place] | | | | | | [address] | | | | | | | | +--------+ + + + + documented as of this encounter Visit Diagnoses Not on filedocumented in this encounter"
--- OUTSIDE RECORDS SUMMARY | ~2019-05-05 | XMS | Encounter Summary ---
Demographics + + + | Address | [address] | | | [place] [address] | + + + | Home Phone [...] [place] | | | | | [address] | | + + + + + Care Team Providers + +------+ + | Care Ink Blender Name | Role | Phone | [...] Looney MD | | | | | [place], | | | | | | [place] [address] | | | | | | [phone] | | | +--------+ + + + [...] W | | | | | | [facility] | | | | | | [place] [address] | | | | | | [phone] | | | | | | | | +--------+ + + + + | 06/08/ | Office | Physical Medicine | Rocky Santos, | | | 2019 | Visit | and Rehabilitation | MD [address] | | | | | | [place] | | | | | | [address] | | | | | | | | +--------+ + + + + | 06/16/ | Appointment | Pulmonology | Eveline Jaffe | | | 2019 | | | MD Nichole Carter | | | | | | [address] [place] | | | | | | [place] [address] | | | | | | [phone] | | | | | | | | +--------+ + + + + | 06/16/ | Office | Pulmonology | Eveline Jaffe | | | 2019 | Visit | | MD Nichole Carter | | | | | | [address] [place] | | | | | | [place], [place] [address] | | | | | | [phone] | | | | | | | | +--------+ + + + + | 08/24/ | Office | Cardiology | Anisha Lopez DO | | 2019 | Visit | | [address] | | | | | | [place] | | | | | | [address] | | | | | | | | +--------+ + + + + documented as of this encounter Visit Diagnoses Not on filedocumented in this encounter"
--- OUTSIDE RECORDS SUMMARY | ~2019-05-05 | XMS | Encounter Summary ---
Demographics + + + | Address | [address] | | | [place] [address] | + + + | Home Phone [...] [place] | | | | | [address] | | + + + + + Care Team Providers + +------+ + | Care Compliance Intern Name | Role | Phone | [...] [place] | | | | | [place], | [address] | | | | | [place] [address] | | | | | | [phone] | | | +--------+ + + + [...] | | | | | [place] [address] | | | | | | [phone] | | | | | | | | +--------+ + + + + | 06/08/ | Office | Physical Medicine | Rocky Santos, | | | 2019 | Visit | and Rehabilitation | MD Nichole Landis | | | | | | [place] | | | | | | [address] | | | | | | | | +--------+ + + + + | 06/16/ | Appointment | Pulmonology | Eveline Jaffe | | 2019 | | | MD Nichole Carter [address] | | | | | | [address] [place] | | | | | | [place] [address] | | | | | | [phone] | | | | | | | | +--------+ + + + + | 06/16/ | Office | Pulmonology | Eveline Jaffe | | | 2019 | Visit | | MD Raul [address] | | | | | | [address] [place] | | | | | | [place] [address] | | | | | | [phone] | | | | | | | | +--------+ + + + + | 08/24/ | Office | Cardiology | Anisha Loepz DO | | | 2019 | Visit | | [address] | | | | | | [place] | | | | | | [address] | | | | | | | | +--------+ + + + + documented as of this encounter Visit Diagnoses Not on filedocumented in this encounter"
--- OUTSIDE RECORDS SUMMARY | ~2019-05-05 | XMS | Encounter Summary ---
Demographics + + + | Address | [address] | | | [place] [address] | + + + | Home Phone [...] [place] | | | | | [address] | | + + + + + Care Team Providers + +------+ + | Care Biologist Name | Role | Phone | [...] | | | | is, | [address] | [address] | | | | | unspecified | [place], | [place] | | | | | shoulder | [place] [address] | [place] | | | | | | Phone: | [address] | | | | | | [phone] | Phone: | | | | | | Fax: | [phone] | | | | | | [phone] | Fax: | | | | | | | [phone] | + +--------+ + + + + Encounter Details +--------+---------+ + + + | Date | Type | Department | Care Team | Description | +--------+---------+ + + + | 12/27/ | Office | [facility] | Giuliano Padilla, | Postop check | | 2019 | Visit | ORTHOPEDIC SURGERY | [address] | (Primary Dx) | | | | [address] [facility] | [place] | | | | | [place] | [address] | | | | | [address] | | | | | | [phone] | | | +--------+---------+ + + + [...] | 2018 | Visit | | [address] | | | | | | [facility] | | | | | | [place] [address] | | | | | | [phone] | | | | | | | | +--------+ + + + + | 06/08/ | Office | Physical Medicine | Rocky Santos, | | | 2019 | Visit | and Rehabilitation | MD Vare[address] | | | | | | [place] | | | | | | [address] | | | | | | | | +--------+ + + + + | 06/16/ | Appointment | Pulmonology | Eveline Jaffe | | | 2019 | | | MD Nichole Carter [address] | | | | | | [address] [place] | | | | | | [place] [address] | | | | | | [phone] | | | | | | | | +--------+ + + + + | 06/16/ | Office | Pulmonology | Eveline Jaffe | | | 2019 | Visit | | MD Nichole Carter W | | | | | | [address] [place] | | | | | | [place] [address] | | | | | | [phone] | | | | | | | | +--------+ + + + + | 08/24/ | Office | Cardiology | Anisha Lopez DO | | | 2019 | Visit | | [address] | | | | | | [place], [place] | | | | | | [address] | | | | | | | | +--------+ + + + + documented as of this encounter Visit Diagnoses + + | Diagnosis | + + | Postop check - Primary Follow-up examination, following unspecified surgery | + + documented in this encounter
--- OUTSIDE RECORDS SUMMARY | ~2019-05-05 | XMS | Encounter Summary ---
Demographics + + + | Address | [address] | | | [place] [address] | + + + | Home Phone [...] [place] | | | | | [address] | | + + + + + Care Team Providers + +------+ + | Care Machinist Apprentice Wood Name | Role | Phone | [...] | | neoplasm of | [address] | [address] | | | | | bronchus and | [place] | [address] | | | | | lung, | [place], [place] | [place], | | | | | unspecified | [address] | [place] [address] | | | | | site | Phone: | Phone: | | | | | | [phone] | [phone] | | | | | | Fax: | Fax: | | | | | | [phone] | [phone] | +--------+ + + + + + Encounter Details +--------+ + + + + | Date | Type | Department | Care Team | Description | +--------+ + + + + | 08/07/ | Hospital | [facility] | Adelita Lu MD | Malignant neoplasm | | 2014 | Encounter | MED CTR NUTRITION | [address] | of bronchus and | | | | SERVICES [address] | [place], [place] | lung, unspecified | | | | [address] [place], | [address] | site (HCC) (Primary | | | | [place] [address] | [phone] | Dx) | | | | [phone] | | | | | | | [...] ALBUMIN 3.2 08/07/2014 Estimated needs (wt. 68kg) 7639-1683 kcals/day 68 gm pro/day Medications: noted ASSESSMENT/PLAN: [...] W | | | | | | [facility] | | | | | | [place] [address] | | | | | | [phone] | | | | | | | | +--------+ + + + + | 06/08/ | Office | Physical Medicine | Rocky Santos, | | | 2019 | Visit | and Rehabilitation | [address] | | | | | | [place] | | | | | | [id number] | | | | | | | | +--------+ + + + + | 06/16/ | Appointment | Pulmonology | Eveline Jaffe | | | 2019 | | | MD [address]ole [address] | | | | | | [address] [place] | | | | | | [place] [address] | | | | | | [phone] | | | | | | | | +--------+ + + + + | 06/16/ | Office | Pulmonology | Eveline Jaffe | | | 2019 | Visit | | MD [address] | | | | | | [address] [place] | | | | | | [place] [address] | | | | | | [phone] | | | | | | | | +--------+ + + + + | 08/24/ | Office | Cardiology | Anisha Lopez DO | | | 2019 | Visit | | [address] | | | | | | [place] | | | | | | [address] | | | | | | | [...]
--- OUTSIDE RECORDS SUMMARY | ~2019-05-05 | XMS | Encounter Summary ---
Demographics + + + | Address | [address] | | | [place] [address] | + + + | Home Phone [...] [place] | | | | | [address] | | + + + + + Care Team Providers + +------+ + | Care Marketing Effectiveness Manager Name | Role | Phone | + +------+ + | Davis Ivan MD | PCP | | + +------+ + Reason for Visit +--------+ + | Reason | Comments | +--------+ + | COPD | | +--------+ + Encounter Details +--------+---------+ + + + | Date | Type | Department | Care Team | Description | +--------+---------+ + + + | 04/17/ | Office | [facility] | Offenstein, | COPD (chronic | | 2013 | Visit | PULMONARY [address] | Ayana Looney MD | obstructive | | | | [place], | | pulmonary disease) | | | | [place] [address] | | (Primary Dx); MARCE | | | | [phone] | | (obstructive sleep | | | | | | apnea); Pulmonary | | | | | | nodules; Squamous | | | | | | cell carcinoma of | | | | | | lung, stage I, right | | | | | | (HCC) | +--------+---------+ + + + Social [...] + | Blood Pressure | 138/74 | 04/17/2014 2:25 PM | | | | | PST | | + + + + + | Pulse | 73 | 04/17/2014 2:25 PM | | | | | PST | | + + + + + | Temperature | - | - | | + + + + + | Respiratory Rate | - | - | | + + + + + | Oxygen Saturation | 97% | 04/17/2014 2:25 PM | | | | | PST | | + + + + + | Inhaled Oxygen | - | - | | | Concentration | | | | + + + + + | Weight | 66.4 kg (146 lb 6.4 | 04/17/2014 2:25 PM | | | | oz) | PST | | + + + + + | Height | 154.9 cm (5' 1") | 04/17/2014 2:25 PM | | | | | PST | | + + + + + | Body Mass Index | 27.66 | 04/17/2014 2:25 PM | | | | | PST | | + + + + + documented in this encounter Patient Instructions Patient Instructions Ayana Taylor MD - 04/17/2014 3:30 PM PSTDo an overnight oxy gen test through [facility]. Call the [facility] before you pick it up to make sure they have a box available. You will continuous pickling line pickler a box at the [facility]. Do the t est on room air. Wear the finger probe through the night and then return the box for a downl oad the next day. Make sure you make your follow up with Dr. Mace. Next chest CT is due in July, so we will make sure that happens too. Stay on Symbicort and albuterol nebulizers. Keep walking as much as you can. You should have a new pneumonia vaccine, called a Prevnar 13. Instructions for Avoidance of Reflux 1. Elevate the head of [...] small amounts frequently throughout the day. 9. Take your reflux medication, omeprazole, 30 minutes prior to eating. documented in this encounter Progress Notes Ayana Taylor MD - 04/17/2014 3:01 PM PSTFormatting of this note might be differe nt from the original. Pulmonary Follow Up HPI Thea Carmona is a 68 y.o. female patient of Davis Ivan here today for follow up of COPD. At their last visit, we had continued her on Symbicort twice daily. Since their last visit she feels like she has been doing pretty well. She has not had any acute illnesses. She did decide to stop wearing her CPAP and returned it. She has not had follow up overnight oximet ry testing off of her CPAP. She just had her back surgery, which she notes was complicated. It was an anterior approach initially, and it took too long, so they went back a second time the next day. They also no april a "rough spot" in her lung and so they did a chest x-ray. She was hospitalized for 8 day s, and discharged about 14 days ago. She is currently on a regimen of Symbicort twice daily. She is using her nebulizer, albute rol, 2 times a day. She returns today for routine follow up. Currently she is able to walk 50 feet at her own pace on level ground. She is exercising re gularly. She has physical therapy at home 3 times weekly, and she does exercises then and on the days she is not there. She also walks around in the house. If she walks too many laps i n the house, she does gets short of breath. She wears a brace and uses a 4 wheeled walker. She does not cough much, but does cough on occasion and does bring up mucous when she does. The mucous is white or clear in color. She has not had hemoptysis. She is not on oxygen at night and was not before she was on CPAP. Past Medical History Past Medical History Diagnosis Date COPD (chronic obstructive pulmonary disease) ([facility]) on albuterol Spondylolisthesis of cervical region Spinal stenosis has tried cortisone injections Osteoporosis Depression Pneumonia 2009 hospitalized 5 days Rheumatoid arthritis(714.0) ([facility]) on prednisone and methotrexate, Dr. Lewis Lima Hyperlipidemia on simvastatin Hypertension on clonidine and lisinopril Hypothyroidism GERD (gastroesophageal reflux disease) Stroke ([facility]) 2006 Stroke ([facility]) 2007 Squamous cell carcinoma of lung ([facility]) 07/2013 MARCE (obstructive sleep apnea) AHI 11.6 Sputum culture positive for Scopulariopsis species Past Surgical History Past Surgical History Procedure Date Hysterectomy Cholecystectomy Cervical spine surgery 2013 Bladder suspension Shoulder surgery Thumb surgery Shoulder surgery right shoulder Tongue surgery benign per pt Lung biopsy 07/21/13 right lower lobe Lobectomy 09/16/13 right lower lobe Back surgery 03/2014 Social History: History Social History Marital Status: Spouse Name: N/A Number of Children: N/A Years of Education: N/A 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 HYDROmorphone (DILAUDID) 4 MG tablet Take 4 [...] mg by mouth Daily. Respiratory Therapy Supplies [employer] autotitrating CPAP at 5-9 cm H2O for life time. Mask, headgear, chin strap, hoses, humidifier chamber and filters. Dx: 327.23 1 each 0 Respiratory Therapy Supplies [employer] S9 auto CPAP 5-9 cm H2O. [...] Review of Systems Constitutional: Denies fever, chills, sweats, and change in weight. Ate a lot prior to her surgery, now has to force herself to eat. Sleep: Off of CPAP. Eyes: Denies vision change and eye irritation. ENT: Denies earache, decreased hearing, nosebleeds, sore throat, and hoarseness. Resp: See HPI. CV: Denies chest pain, palpitations, syncope, and peripheral edema. GI: Denies nausea, vomiting, constipation and abdominal pain. Has heartburn despite medica tion. Constipation has resolved. : Denies difficulty emptying bladder. Objective BP 138/74 | Pulse 73 | Ht 1.549 m (5' 1") | Wt 66.407 kg (146 lb 6.4 oz) | BMI 27.68 kg/m2 | SpO2 97% RA General Appearance: [...] wheezes, crackles or rhonchi Chest Wall: No deformity, wearing a back brace Heart: Regular rate and rhythm, 1/6 systolic murmur, rub or gallop Abdomen: Soft, non-tender, non-distended Extremities: No cyanosis, clubbing, trace bilateral lower extremity edema Pulses: Radial pulses 2+ and symmetric Skin: Warm and dry Lymph nodes: Cervical and supraclavicular nodes normal Data: Chest x-ray done March 17, 2014 was reviewed and interpreted in clinic today. It shows so me scarring/atelectasis at the right lung base. Chest CT scan done January 05, 2014 report was reviewed in clinic today. It shows an enlargin g right upper lobe nodule, reportedly measuring 9x6mm, previously 3mm in size. Results for orders placed during the hospital [...] 70-109 mg/dL BUN 9 7-18 mg/dL Creatinine, Serum/Plasma 0.78 0.60-1.30 mg/dL eGFR if not >60 >=60 mL/min/1.73m2 CALCIUM 8.9 8.3-10.5 mg/dL ALBUMIN 3.1 (*) 3.2-5.0 g/dL BILIRUBIN TOTAL 0.5 0.1-1.5 mg/dL Total protein 6.4 6.0-7.8 g/dL AST 24 10-42 U/L ALT 16 6-45 U/L ALK PHOS 57 40-110 U/L GLOBULIN 3.3 Albumin/Globulin ratio 0.9 BUN/CREA 11.5 Immunization History Administered Date(s) Administered PNEUMOCOCCAL POLYSACCHARIDE 23-VALENT (PPSV23) 03/01/2011 TRIVALENT INFLUENZA, PRESERATIVE FREE (PED/ADOL/ADULT) 03/22/2013, 02/15/2014 Assessment 1. COPD (chronic obstructive pulmonary disease) - On Symbicort with albuterol nebulizers an d has been stable. Did poorly when these were stopped. 2. MARCE (obstructive sleep apnea) - Has stopped treatment. Original study showed 4.1 minutes less than 88%. Given lobectomy, I recommended follow up oximetry to see if requires nocturn al oxygen. 3. Pulmonary nodules - Right upper lobe nodule is enlarging. Planned follow up for 07/2014. 4. Squamous cell carcinoma of lung, stage I, right (HCC) - s/p lobectomy. Given multiple ot her co morbidities and known colonization with fungus has declined adjuvant chemotherapy. Plan 1.Continue Symbicort and albuterol. 2.Check overnight oximetry on room air. 3.Repeat chest Ct scan planned for 07/2014. 4. I recommended she get a Prevnar 13 vaccine per updated guidelines. She was advised to call if new pulmonary symptoms were to develop. Return to clinic in 3 months, or sooner with concerns. CC: Davis Ivan Portions of this report were transcribed using voice recognition software. Every effort wa s made to ensure accuracy; however, inadvertent computerized bin cleaner errors may be pre sent. documented in [...] | | | | | [place] [address] | | | | | | [phone] | | | | | | | | +--------+ + + + + | 06/08/ | Office | Physical Medicine | Rocky Santos, | | | 2019 | Visit | and Rehabilitation | [address] | | | | | | [place] | | | | | | [address] | | | | | | | | +--------+ + + + + | 06/16/ | Appointment | Pulmonology | Eveline Jaffe | | | 2019 | | | MD [address] | | | | | | [address] [place] | | | | | | [place], [place] [address] | | | | | | [phone] | | | | | | | | +--------+ + + + + | 06/16/ | Office | Pulmonology | Eveline Jaffe | | | 2019 | Visit | | MD [address] | | | | | | [address] [place] | | | | | | [place] [address] | | | | | | [phone] | | | | | | | | +--------+ + + + + | 08/24/ | Office | Cardiology | Anisha Lopez DO | | | 2019 | Visit | | [address] | | | | | | [place] | | | | | | [address] | | | | | | | | +--------+ + + + + + + +--------+ + + | Name | Type | Priori | Associated Diagnoses | Order Schedule | | | | ty | | | + + +--------+ + + | Overnight oximetry, | Respiratory | Routin | COPD (chronic | Expected: | | room air | Care | e | obstructive | 04/17/2014, Expires: | | | | | pulmonary disease) | 04/17/2015 | + + +--------+ + + documented as of this encounter Visit Diagnoses + + | Diagnosis | + + | COPD (chronic obstructive pulmonary disease) - Primary Chronic airway obstruction, | | not elsewhere classified | + + | MARCE (obstructive sleep apnea) Obstructive sleep apnea (adult) (pediatric) | + + | Pulmonary nodules Other nonspecific abnormal finding of lung field | + + | Squamous cell carcinoma of lung, stage I, right (HCC) | + + documented in this encounter
--- OUTSIDE RECORDS SUMMARY | ~2019-05-05 | XMS | Encounter Summary ---
Demographics + + + | Address | [address] | | | [place] [address] | + + + | Home Phone [...] [place] | | | | | [address] | | + + + + + Care Team Providers + +------+ + | Care Tour Production Supervisor Name | Role | Phone | + +------+ + PCP | Unavailable | + +------+ + Encounter Details +--------+ + + + + | Date | Type | Department | Care Team | Description | +--------+ + + + + | 01/19/ | Hospital | [facility] | Silviano Cabrera MD | | | 2012 - | Encounter | [facility] [address] | [address] | | | | | [address] | [place], | | | 01/23/ | | [place], [place] | [place] [address] | | | 2012 | | [address] | [phone] | | | | | [phone] | | | +--------+ + + + [...] 1548 Date of Service: 01/28/131544 Status: Signed Grinding And Polishing Laborer: RITA Rubio (Advanced Registered Nurse Practitioner) [facility] Service: Orthopedic Surgery Brief Post-op Discharge Note [...] Status: Prior Activity restrictions and use of [place]/Soft collar was d/w patient. Follow up: F/U at [facility] within 2 weeks. Discharge Medication List as [...] 1149 Date of Service: 01/23/131148 Status: Signed Grinding And Polishing Laborer: Corrine Polk RN (Registered Nurse) Discharge instructions [...] 01/23/13926 Date of Service: 01/23/13917 Status: Signed Grinding And Polishing Laborer: Elsi Hernandez PT (Physical Therapist) 01/23/13917 PT [...] Date of Service: 01/22/13 104 Status: Signed Grinding And Polishing Laborer: BLAIR Raymundo (Occupational Therapist) 01/22/13 1047 Precautions [...] Date of Service: 01/22/13 1021 Status: Signed Grinding And Polishing Laborer: Elsi Hernandez PT (Physical Therapist) 01/22/13 1021 [...] limited by? Therapist/staff discretion Stair Management Technique [id number] Activity Tolerance Activity Tolerance Patient limited by [...] 01/22/13822 Date of Service: 01/22/13820 Status: Signed Grinding And Polishing Laborer: RITA Rubio (Advanced Registered Nurse Practitioner) [facility] Service: Orthopedic Surgery Progress Note Hospital Day: [...] Denver Arias PTA Service: (none) Author Type: General Service Officer Filed: 01/21/13 1503 Date of Service: 01/21/13 1502 Status: Signed Grinding And Polishing Laborer: Denver Arias PTA (General Service Officer) 01/21/13 1502 PT Last Visit PT Received [...] Date of Service: 01/21/13 1135 Status: Signed Grinding And Polishing Laborer: ANNAMARIE Charlton/Colette (Occupational Therapist) 01/21/13 1117 THERAPUTTY EXERCISE Theraputty exercises Senior Account Executive (financial management analyst, pinch, twist for increased fine motor control [...] Denver Arias PTA Service: (none) Author Type: General Service Officer Filed: 01/21/13 1032 Date of Service: 01/21/13 1031 Status: Signed Grinding And Polishing Laborer: Denver Arias PTA (General Service Officer) 01/21/13 1031 PT Last Visit PT Received [...] Date of Service: 01/20/13 1515 Status: Signed Grinding And Polishing Laborer: Ashlee Gomes PT (Physical Therapist) 01/20/13 1515 [...] living situation;Home with daytime assist Equipment Recommended Assistant Case Manager Ashlee Mazariegos 01/21/20 13 10:12 AM PDT Progress Notes by Ashlee Gomes PT at 01/20/13 1012 Author: Ashlee Gomes PT Service: (none) Author Type: Physical Therapist Filed: 01/20/131736 Date of Service: 01/20/13 1012 Status: Signed Grinding And Polishing Laborer: Ashlee Gomes PT (Physical Therapist) 01/20/13 1012 PT Last Visit PT Received On 01/20/13 Reason for Treatment Spinal surgery (C4 - 6 fusion & diskectomy) Requires PT Follow Up Yes Follow up PT Only? No PT Eval/Reassessment Date 01/20/13 Assistance Required 1 person Advance Agent Needed No Requires PT Follow Up Yes [...] situation;Home with 24 hr supervision/assist Equipment Recommended Assistant Case Manager Prior Function Level of [place] Household distance;Modified independent with functional mobility;Assi st [...] (none) Author Type: Physical Therapist Filed: 01/20/13 1748 Date of Service: 01/20/13 1012 Status: Signed Grinding And Polishing Laborer: Ashlee R Gomes, PT (Physical Therapist) 01/20/13 1012 PT Last Visit PT Received On 01/20/13 Reason for Treatment Spinal surgery (C4 - 6 fusion & diskectomy) Requires PT Follow Up Yes Follow up PT Only? No PT Eval/Reassessment Date 01/20/13 Assistance Required 1 person Advance Agent Needed No Precautions Spinal Precautions Cervical;Cervical collar [...] situation;Home with 24 hr supervision/assist Equipment Recommended Assistant Case Manager Vidal Taylor - 01/20/2013 8:04 AM PDT Progress Notes by RITA Rubio at 01/20/13803 Author: RITA Rubio Service: (none) Author Type: Advanced Registered Nurse Practit ioner Filed: 01/20/13804 Date of Service: 01/20/13803 Status: Signed Grinding And Polishing Laborer: RITA Rubio (Advanced Registered Nurse Practitioner) [place] [...] | BMI 30.81 kg/m2 | SpO2 94% {EXTENDEDVITALS:76163 Physical Exam Ortho Exam Drain 50cc 5-/5 [...] 01/19/131735 Date of Service: 01/19/131735 Status: Signed Grinding And Polishing Laborer: BLAIR Charlton (Occupational Therapist) 01/19/131715 Home Environment [...] wheeled;Walker 4 wheeled Prior Function Level of [place] Modified independent with functional mobility;Assist with ADLs;Assist [...] and handout) LE Dressing Adaptive Equipment Sock aid;Assistant Case Manager;Elastic shoe laces;Button hook Arm Goals Pt Will Perform AROM B UE;2 sets;10 reps;With activity tolerance;Without significant change in vital signs;With good activity tolerance;3 sets (ST X 2 w/ handout LT X 3 independently) Pt Will Complete Theraputty Exer L UE;2 sets;Min resistance putty (yellow);With handout for visual cueing;With verbal cues;Independently (STG: financial management analyst/pinch/twist w/ vcs LTG: independent) Charity Farnsworth RPH - 01/19/2013 5:07 PM PDTFormatting of this note might be different from t janeth original. Progress Notes by Charity Leal RPH at 01/19/131706 Author: Charity Leal RPH Service: (none) Author Type: Pharmacist Filed: 01/19/131706 Date of Service: 01/19/131706 Status: Signed Grinding And Polishing Laborer: Charity Leal RPH (Pharmacist) Clinical Pharmacy Note - Renal Dose Adjustment Thea Carmona 67 y.o. female Ht Readings from Last 1 Encounters: 01/19/13 1.575 m (5' 2") Wt Readings from Last 1 Encounters: 01/19/13 76.4 kg (168 lb 6.9 oz) CREATININE Date Value Range Status 01/13/2013 1.06* 0.50 - 1.00 mg/dL Final Testing performed at [facility], [address] [place] [address] Creatinine clearance cannot be calculated - Pharmacy [...] | 2018 | Visit | | [address] | | | | | | [facility] | | | | | | [place] [address] | | | | | | [phone] | | | | | | | | +--------+ + + + + | 06/08/ | Office | Physical Medicine | Rocky Santos, | | | 2019 | Visit | and Rehabilitation | MD [address] | | | | | | [place] | | | | | | [address] | | | | | | | | +--------+ + + + + | 06/16/ | Appointment | Pulmonology | Eveline Jaffe | | | 2019 | | | MD [address] | | | | | | [address] [place] | | | | | | [place] [address] | | | | | | [phone] | | | | | | | | +--------+ + + + + | 06/16/ | Office | Pulmonology | Eveline Jaffe | | | 2019 | Visit | | MD [address] | | | | | | [address] [place] | | | | | | [place] [address] | | | | | | [phone] | | | | | | | | +--------+ + + + + | 08/24/ | Office | Cardiology | Anisha Lopez DO | | | 2019 | Visit | | [address] | | | | | | [place] | | | | | | [address] | | | | | | | [...]
--- OUTSIDE RECORDS SUMMARY | ~2019-05-05 | XMS | Encounter Summary ---
Demographics + + + | Address | [address] | | | [place] [address] | + + + | Home Phone [...] [place] | | | | | [address] | | + + + + + Care Team Providers + +------+ + | Care Safety Glass Installer Name | Role | Phone | [...] | | | | carcinoma of | [address] | [place] [address] | | | | | lung, right | [place], | Phone: | | | | | (HCC) | [place] [address] | [phone] | | | | | | | Fax: | | | | | | | [phone] | +--------+ + + + + + Reason for Visit +--------+ + | Reason | Comments | +--------+ + | COPD | | +--------+ + Encounter Details +--------+---------+ + + + | Date | Type | Department | Care Team | Description | +--------+---------+ + + + | 07/17/ | Office | [facility] [place] | [place], | COPD exacerbation | | 2014 | Visit | PULMONARY [address] | Ayana Looney MD | ([facility]); Recurrent | | | | [address] [place], | | squamous cell | | | | [place] [address] | | carcinoma of lung, | | | | [phone] | | right ([facility]) | +--------+---------+ + + + Social History [...] + + + | Blood Pressure | 134/62 | 07/17/2014 1:36 PM | | | | | PST | | + + + + + | Pulse | 73 | 07/17/2014 1:36 PM | | | | | PST | | + + + + + | Temperature | - | - | | + + + + + | Respiratory Rate | - | - | | + + + + + | Oxygen Saturation | 96% | 07/17/2014 1:36 PM | | | | | PST | | + + + + + | Inhaled Oxygen | - | - | | | Concentration | | | | + + + + + | Weight | 69.7 kg (153 lb 11.2 | 07/17/2014 1:36 PM | | | | oz) | PST | | + + + + + | Height | 154.9 cm (5' 1") | 07/17/2014 1:36 PM | | | | | PST | | + + + + + | Body Mass Index | 29.04 | 07/17/2014 1:36 PM | | | | | PST | | + + + + + documented in this encounter Patient Instructions Patient Instructions Ayana Taylor MD - 07/17/2014 1:52 PM PSTStay on the Symbico rt 2 puffs twice daily. Start on albuterol inhaler (either Ventolin (blueish larsen) or ProAir (Red)) 2 puffs every 6 hours as needed for shortness of breath. This is the same medication as the nebulizer, and you can use either the inhaler or the nebulizer as needed, but not both at the same time. Take prednisone 20mg daily for 5 days. Take azithromycin 500mg today then 250mg daily for 4 more days. I am placing the referral to Dr. Banegas. documented in this encounter Progress Notes Ayana Taylor MD - 07/17/2014 1:46 PM PSTFormatting of this note might be differe nt from the original. Pulmonary Follow Up HPI Thea Carmona is a 69 y.o. female patient of Davis Ivan here today for follow up of COPD and lung cancer. At their last visit, we had continued her on Symbciort and albuterol. Since their last visi t she feels like she has been doing okay, but she notes she would like to use her Symbicort 4 times a day. She has not had any acute illnesses. She was found to have an enlarging pulmo nary nodule on her chest CT scan. She had this biopsied in [place] by endobronchial ultraso und-transbronchial needle aspiration of right hilar lymph node by Dr. Sierra on July 11, 2014. This was found to be recurrent cancer. She is currently on a regimen of Symbicort twice daily. She does feel like this medication regimen is working for them, but would like to use her inhalers more. She does not have a r escue inhaler right now. She is using her nebulizer, albuterol, 1-2 times a day. She return s today for routine follow up. Currently she is able to walk a couple hundred yards at her own pace on level ground. She i s not exercising regularly. She had a virus back in the beginning of June and was given Tamiflu. Her symptoms began on the , and they would wax and wane. After about 2 weeks she took the medication. She cintron s been coughing since. The cough is slowly improving. She still has cough with mucous produc tion that is light green in color. She has been evaluated for nocturnal oxygen and does not use it. She was tested a multitude of times through April and May and she does not require it, though the tests were r eported erroneously. Past Medical History Past Medical History Diagnosis Date COPD (chronic obstructive pulmonary disease) ([facility]) on albuterol Spondylolisthesis of cervical region Spinal stenosis has tried cortisone injections Osteoporosis Depression Pneumonia 2009 hospitalized 5 days Rheumatoid arthritis(714.0) ([facility]) on prednisone and methotrexate, Dr. 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 Respiratory Therapy Supplies [employer] Respironics autotitrating CPAP at 5-9 cm H2O for life time. Mask, headgear, chin strap, hoses, humidifier chamber and filters. Dx: 327.23 1 each 0 Respiratory Therapy Supplies [employer] ResMed S9 auto CPAP 5-9 cm H2O. [...] facility-administered encounter medications on file as of 07/17/2014. Review of Systems: General: []Weight loss/gain (over 10 lbs) []Fever/chills/sweats []Night sweats EENT: []Hearing loss []Vision loss/change []Sinus congestion/nasal drainage []Nosebleeds [] Hoarseness Cardiac: []Chest pain []Palpitations/heart racing []Swelling of legs/ankles []Waking up at night s hort of breath Gastrointestinal: []Nausea/vomiting []Difficulty swallowing []Heartburn/acid reflux []Loss of appetite [x]Abd ominal pain - RLQ pain in area where her back fusion surgery was done Urologic: []Blood in urine []Frequent urination at night []Burning/painful urination []Difficulty wit h urination Objective BP 134/62 | Pulse 73 | Ht 1.549 m (5' 1") | Wt 69.718 kg (153 lb 11.2 oz) | BMI 29.06 k g/m2 | SpO2 96% General Appearance: Alert, cooperative, [...] nodes normal Data: Chest CT scan done June 08, 2014 was reviewed and interpreted in clinic today. It shows t hat her RUL nodule has increased to 10mm in size. Overnight oximetry was done on May 03, 2014 on room air and was reviewed and interprete d in clinic today. It shows she spent 0 minutes with a saturation less than 88%. José Miguel Mace's notes were reviewed in clinic today. Pathology from 07/11/2014 was reviewed and shows squamous cell carcinoma in right hilar lymp h node. Immunization History Administered Date(s) Administered PNEUMOCOCCAL POLYSACCHARIDE 23-VALENT (PPSV23) 03/01/2011 TRIVALENT INFLUENZA, PRESERATIVE FREE (PED/ADOL/ADULT) 03/22/2013, 02/15/2014 Assessment 1. COPD exacerbation (HCC) - Currently having several weeks of cough after recent URI. We w ill treat with a course of antibiotics and prednisone. 2. Recurrent squamous cell carcinoma of lung, right (HCC) - S/p biopsy of right hilar lymph node. I have reviewed Dr. Mace's notes from tumor board and placed referral to radiation o ncology as well. She has an appointment to see medical oncology 07/31/14. Plan 1.Prednisone 20mg daily for 5 days then resume baseline 10mg daily dose. 2.Azithromycin 500mg x 2 then 250mg daily for 4 days. 3.Referral placed to Dr. Banegas, radiation oncology. 4. Continue Symbicort twice daily. 5.ProAir ordered to use as needed. She was advised to call if new pulmonary symptoms were to develop. Return to clinic in 3 months, or sooner with concerns. CC: Davis Ivan MD, Adelita Lu MD, Jimmy Banegas MD, José Miguel Mace MD Portions of this report were transcribed using voice recognition software. Every effort wa s made to ensure accuracy; however, inadvertent computerized fire tender errors may be pre sent. documented [...] | | | | | [place] [address] | | | | | | [phone] | | | | | | | | +--------+ + + + + | 06/08/ | Office | Physical Medicine | Rocky Santos, | | | 2019 | Visit | and Rehabilitation | MD Vare[address] | | | | | | [place] | | | | | | [address] | | | | | | | | +--------+ + + + + | 06/16/ | Appointment | Pulmonology | Eveline Jaffe | | | 2019 | | | MD [address] | | | | | | [address] [address] | | | | | | [place] [address] | | | | | | [phone] | | | | | | | | +--------+ + + + + | 06/16/ | Office | Pulmonology | Eveline Jaffe | | | 2019 | Visit | | MD Raul [address] | | | | | | [place] | | | | | | [place] [address] | | | | | | [phone] | | | | | | | | +--------+ + + + + | 08/24/ | Office | Cardiology | Anisha Lopez DO | | | 2019 | Visit | | [address] | | | | | | [place] | | | | | | [phone] | | | | | | | | +--------+ + + + + + + +--------+ + + | Name | Type | Priori | Associated Diagnoses | Order Schedule | | | | ty | | | + + +--------+ + + | * [facility] | Outpatient | Routin | Recurrent squamous | Ordered: 07/17/2014 | | ONCOLOGY - AMB | Referral | e | cell carcinoma of | | | Referral | | | lung, right (HCC) | | + + +--------+ + + documented as of this encounter Visit Diagnoses + + | Diagnosis | + + | COPD exacerbation (HCC) Obstructive chronic bronchitis with exacerbation | + + | Recurrent squamous cell carcinoma of lung, right (HCC) | + + documented in this encounter
--- OUTSIDE RECORDS SUMMARY | ~2019-05-05 | XMS | Encounter Summary ---
Demographics + + + | Address | [address] | | | [place] [address] | + + + | Home Phone [...] [place] | | | | | [address] | | + + + + + Care Team Providers + +------+ + | Care Take Out Waiter/Waitress Name | Role | Phone | + [...] + + | 09/29/ | Office | [facility] [place] | [place], | COPD (chronic | | 2013 | Visit | PULMONARY [address] | Ayana Looney MD | obstructive | | | | [place], | | pulmonary disease) | | | | [place] [address] | | (Primary Dx); MARCE | | | | [phone] | | (obstructive sleep | | | [...] on level ground. She is exercising re [employer]. She is walking a 70 foot loop 3 times a day. Past Medical History Past Medical History Diagnosis Date COPD (chronic obstructive pulmonary disease) ([facility]) on albuterol Spondylolisthesis of cervical region Spinal stenosis has tried cortisone injections Osteoporosis Depression Pneumonia 2009 hospitalized 5 days Rheumatoid arthritis(714.0) ([facility]) 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 Respiratory Therapy Supplies [facility] ResMed S9 auto CPAP 5-9 cm H2O. [...] made to ensure accuracy; however, inadvertent computerized command center analyst errors may be pre sent. Electronically signed by: Ayana Taylor MD 09/29/2013 13:51 documented in t his encounter Plan of Treatment +--------+ + + + + | Date | Type | Specialty | Care Team | Description | +--------+ + + + + | 05/30/ | Office | Rheumatology | Santosh Sumner, | | | 2018 | Visit | | [address] | | | | | | [facility] | | | | | | [place] [address] | | | | | | [phone] | | | | | | | | +--------+ + + + + | 06/08/ | Office | Physical Medicine | Rocky Santos, | | | 2019 | Visit | and Rehabilitation | MD Nichole [address] | | | | | | [place] | | | | | | [address] | | | | | | | | +--------+ + + + + | 06/16/ | Appointment | Pulmonology | Eveline Jaffe | | | 2019 | | | MD [address] | | | | | | [address] [place] | | | | | | [place] [address] | | | | | | [phone] | | | | | | | | +--------+ + + + + | 06/16/ | Office | Pulmonology | Eveline Jaffe | | | 2019 | Visit | | MD Nichole Carter | | | | | | [address] [place] | | | | | | [place] [address] | | | | | | [phone] | | | | | | | | +--------+ + + + + | 08/24/ | Office | Cardiology | Anisha Lopez DO | | | 2019 | Visit | | [address] | | | | | | [place] | | | | | | [address] | | | | | | | [...]
--- OUTSIDE RECORDS SUMMARY | ~2019-05-05 | XMS | Encounter Summary ---
Demographics + + + | Address | [address] | | | [place] [address] | + + + | Home Phone [...] [place] | | | | | [address] | | + + + + + Care Team Providers + +------+ + | Care Shipping And Receiving Specialist Name | Role | Phone | [...] + + | 07/02/ | Telephone | [facility] | Vivian, | Other | | 2015 | | [facility] | Lokesh Gramajo MD [address] | | | | | [facility] [address] | [facility] | | | | | [address] | [place] [address] | | | | | [place] [address] | [phone] | | | | | [phone] | | | +--------+ + + + [...] | 2018 | Visit | | [address] | | | | | | [facility] | | | | | | [place] [address] | | | | | | [phone] | | | | | | | | +--------+ + + + + | 06/08/ | Office | Physical Medicine | Rocky Santos, | | | 2019 | Visit | and Rehabilitation | [address] | | | | | | [place] | | | | | | [address] | | | | | | | | +--------+ + + + + | 06/16/ | Appointment | Pulmonology | Eveline Jaffe | | | 2019 | | | MD Nichole Carter | | | | | | [address] [place] | | | | | | [place] [address] | | | | | | [phone] | | | | | | | | +--------+ + + + + | 06/16/ | Office | Pulmonology | Eveline Jaffe | | | 2019 | Visit | | MD Nichole Carter | | | | | | [address] [place] | | | | | | [place], [place] [address] | | | | | | [phone] | | | | | | | | +--------+ + + + + | 08/24/ | Office | Cardiology | Anisha Lopez DO | | | 2019 | Visit | | [address] | | | | | | [place] | | | | | | [address] | | | | | | | | +--------+ + + + + documented as of this encounter Visit Diagnoses Not on filedocumented in this encounter"
--- OUTSIDE RECORDS SUMMARY | ~2019-05-05 | XMS | Encounter Summary ---
Demographics + + + | Address | [address] | | | [place] [address] | + + + | Home Phone [...] [place] | | | | | [address] | | + + + + + Care Team Providers + +------+ + | Care Home Office Claim Specialist Name | Role | Phone | [...] | | squamous | Sarita C, | [place] | | | | | cell | MD [address] | [place], [place] | | | | | carcinoma of | [address] | [address] | | | | | lung, right | [place], | Phone: | | | | | (HCC) | [place] [address] | [phone] | | | | | Procedures | Phone: | Fax: | | | | | PET CT Skull | [phone] | [phone] | | | | | Base To Mid | Fax: | | | | | | Thigh | [phone] | | +--------+--------+ + + + + Reason for Visit + + + | Reason | Comments | + + + | Follow-up | | + + + Encounter Details +--------+ + + + + | Date | Type | Department | Care Team | Description | +--------+ + + + + | 11/09/ | Hospital | [facility] | Vivian, | Recurrent squamous | | 2015 | Encounter | [facility] CTR MED[facility] | Sarita Gramajo MD [address] | cell carcinoma of | | | | ONCOLOGY CLINIC [address] | [facility] | lung, right (HCC) | | | | [facility] | [place] [address] | (Primary Dx); | | | | [place] [address] | [phone] | Squamous cell | | | | [phone] | | carcinoma of lung, | | [...] nt from the original. Hematology/Oncology Progress Note [facility] Pt. Name/Age/: Thea Carmona 69 y.o. 1945 Med. Record Number: [id number] Date of admission: 11/09/2014 Identifying Statement: Thea Carmona is a 69 y.o. female from [address] [place] [address] with Locally recurrent squamous cell RIGHT lung [...] lewis 2.CT-guided biopsy by interventional radiology at [facility] of the right lung [...] Taxol in August 2014 9. Admitted to [facility] on September 27, 2014 for right-sided chest pain secondar y to acute bronchitis. 10. CT chest [facility] on September 28, 2014 demonstrated persistent 32 mm x 26 mm x 27 mm Right Hilar Mass. Current Assessment & Plan Stephanie returned to the [facility] on November 09, 2014 for f ollow up of her locally recurrent RIGHT Lung cancer. Interval history is notable for the fac t that Thea was admitted to [facility] in [place], [place] for acute exacerbatio n of chronic bronchitis. During her hospitalization there, a chest CT was performed demonstr ating a persistent 32 x 26 mm right hilar mass. These images were reviewed subsequently at [facility] on their PACS system. Radiographic abnormality in the right hilum ma y represent persistent tumor or simply residual, non viable tissue following combined modali ty therapy. Since therapeutic effect of irradiation may be delayed, I recommended waiting an additional month before proceeding with repeat PET scan to assess for persistent disease. PET/CT schedule at [facility] on December 21, 2014 with follow up at [facility] the following week. RESOLVED: [...] was recently admitted to the hospital at [place] with excruciating pain in her right lung. [...] Diagnosis Date COPD (chronic obstructive pulmonary disease) ([facility]) on albuterol Spondylolisthesis of cervical region Spinal stenosis has tried cortisone injections Osteoporosis Depression Pneumonia 2009 hospitalized 5 days Rheumatoid arthritis(714.0) ([facility]) on prednisone and methotrexate, Dr. 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 Number of times this order has been changed since signin Order [facility] [place] albuterol 90 mcg/puff inhaler (Taking) Inhale 2 puffs into the lungs every 6 hours as nee ded for Wheezing or Shortness of Breath. Number of times this order has been changed since signin Order [facility] [place] aspirin 81 MG tablet (Taking) Take 81 mg by mouth Daily. Number of times this order has been changed since signin Order [facility] [place] benzonatate (TESSALON PERLES) 100 mg capsule (Taking) Take 1 capsule by mouth 3 times marlen ly as needed for Cough. Number of times this order has been changed since signin Order [facility] [place] budesonide-formoterol (SYMBICORT) 160-4.5 mcg/puff inhaler (Taking) Inhale 2 puffs into t he lungs 2 times daily. Number of times this order has been changed since signin Order [facility] [place] cholecalciferol (VITAMIN D-3) 1,000 units capsule (Taking) Take 1,000 Units by mouth Alvarado y. Number of times this order has been changed since signin Order [facility] [place] cloNIDine (CATAPRES) 0.1 mg tablet (Taking) Take by mouth Daily. Number of times this order has been changed since signin Order [facility] [place] clopidogrel (PLAVIX) 75 mg tablet (Taking) Take 75 mg by mouth Daily. Number of times this order has been changed since signin Order [facility] [place] diazepam (VALIUM) 2 mg tablet (Taking) nightly as needed. Number of times this order has been changed since signin Order [facility] [place] ferrous sulfate (IRON) 28 MG TABS (Taking) Take 28 mg by mouth Daily. Number of times this order has been changed since signin Order [facility] [place] Fexofenadine HCl (ETHAN ALLERGY PO) (Taking) Take by mouth Daily. Number of times this order has been changed since signin Order [facility] [place] folic acid 1 mg tablet (Taking) Take 1 mg by mouth Daily. Number of times this order has been changed since signin Order [facility] [place] guaiFENesin (MUCINEX) 600 mg 12 hr tablet (Taking) Take 1,200 mg by mouth as needed. Number of times this order has been changed since signin Order [facility] [place] HYDROcodone-acetaminophen (HYCET) 7.5-325 mg/15 mL liquid (Taking) Take 15 mLs by mouth 4 times daily as needed for Pain. Number of times this order has been changed since signin Order [facility] [place] HYDROmorphone (DILAUDID) 4 MG tablet (Taking) Take 4 mg by mouth every 6 hours as needed. Number of times this order has been changed since signin Order [facility] [place] levothyroxine (SYNTHROID) 100 mcg tablet (Taking) Take 75 mcg by mouth every morning (bef ore breakfast). Number of times this order has been changed since signin Order [facility] [place] LORazepam (ATIVAN) 1 mg tablet (Taking) Take 1 mg by mouth every 6 hours as needed for An xiety. Number of times this order has been changed since signin Order [facility] [place] Magnesium 100 MG CAPS (Taking) Take by mouth Daily. Number of times this order has been changed since signin Order [facility] [place] methotrexate 2.5 mg tablet (Taking) Take 25 mg by mouth Once a week. Number of times this order has been changed since signin Order [facility] [place] omeprazole (PRILOSEC) 20 mg capsule (Taking) Take 40 mg by mouth every morning (before br eakfast). Number of times this order has been changed since signin Order [facility] [place] predniSONE (DELTASONE) 5 mg tablet (Taking) Take 10 mg by mouth Daily. Number of times this order has been changed since signin Order [facility] [place] ranitidine (ZANTAC) 150 mg tablet (Taking) Take 1 tablet by mouth 2 times daily. Number of times this order has been changed since signin Order [facility] [place] Respiratory Therapy Supplies MISC (Taking) ResMed S9 auto CPAP 5-9 cm H2O. Heater and Hum idifier. All necessary supplies. AHI 11.6. Diagnosis Code(s)327.23, also has co morbid hyper tension, history of stroke. Length of Need 99 months. Please send order to [facility]. Number of times this order has been changed since signin Order [facility] [place] simvastatin (ZOCOR) 40 mg tablet (Taking) Take 40 mg by mouth nightly. Number of times this order has been changed since signin Order [facility] [place] venlafaxine (EFFEXOR) 75 MG tablet (Taking) Take 37.5 mg by mouth 2 times daily. Number of times this order has been changed since signin Order [facility] [place] Allergy: No Known Allergies Objectives: Temp: 37.1 [...] found 3.1 Pharmacovigilance: IDT PATIENT MEDICATION/PROFILE REVIEW [facility] Pharmacy [...] of Paclitaxel and carboplatin for locally advanced qmh-eykph-tzhs lung cancer: a randomized phase II locally advanced multi-modality protocol. Pertinent Medical History: has a past medical history of COPD (chronic obstructive pulmona ry disease) ([facility]); Spondylolisthesis of cervical region; Spinal stenosis; Osteoporosis; Depr ession; Pneumonia (2008); Rheumatoid arthritis(714.0) ([facility]); Hyperlipidemia; Hypertension; H ypothyroidism; GERD (gastroesophageal reflux disease); Stroke ([facility]) (2006); Stroke ([facility]) (18 01); Squamous cell carcinoma of lung ([facility]) (07/2013); Sputum culture positive for Scopulariop sis species; Recurrent squamous cell carcinoma of lung ([facility]) (07/11/2014); MARCE (obstructive s leep [...] mg by mouth Daily. Respiratory Therapy Supplies [facility] ResMed S9 auto CPAP 5-9 cm H2O. [...] U/L Final Electronically signed by: Hiral Dsouza [facility] 07/31/2014 11:32 Palliative Care: No immediate needs identified. SARITA HENDRIX MD Portions of this chart may have been created with EasyRun voice recognition software. Occasi onal wrong-word or [...] | | | | | | [place] [address] | | | | | | [phone] | | | | | | | | +--------+ + + + + | 06/08/ | Office | Physical Medicine | Rocky Santos, | | | 2019 | Visit | and Rehabilitation | [address] | | | | | | [place] | | | | | | [address] | | | | | | | | +--------+ + + + + | 06/16/ | Appointment | Pulmonology | Eveline Jaffe | | | 2019 | | | MD [address] | | | | | | [address] [place] | | | | | | [place] [address] | | | | | | [phone] | | | | | | | | +--------+ + + + + | 06/16/ | Office | Pulmonology | Eveline Jaffe | | | 2019 | Visit | | MD [address] | | | | | | [address] [place] | | | | | | [place] [address] | | | | | | [phone] | | | | | | | | +--------+ + + + + | 08/24/ | Office | Cardiology | Anisha Lopez DO | | 2019 | Visit | | [address] | | | | | | [place] | | | | | | [address] | | | | | | | [...] | | PDT | stage I, right ([facility]) | results section. | + [...] [address] | [place] | [phone] | | [facility] | | [address] | | | - LABORATORY | | [...] | mL/min/1.73m2 | S[facility] | | | GERMAN | RATE,ESTIMATED | | MEDICAL | | | | mL/min/1.50p4Vsjf than | | CENTER - | | [...] + | [facility] | [address] | [place] | [phone] | | [facility] | | [address] | | | - LABORATORY | | [...] [address] | [place] | [phone] | | [facility] | | [address] | | | - LABORATORY | | [...]
--- OUTSIDE RECORDS SUMMARY | ~2019-05-05 | XMS | Encounter Summary ---
Demographics + + + | Address | [address] | | | [place] [address] | + + + | Home Phone [...] [place] | | | | | [address] | | + + + + + Care Team Providers + +------+ + | Care Backpackers Manager Name | Role | Phone | [...] + + | 09/12/ | Hospital | [facility] | Adelita Lu MD | 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 | | | | INFUSION [address] | [place], [place] | lung, unspecified | | | | [place], | [address] | laterality (HCC); | | | | [place] [address] | [phone] | Pulmonary nodules | | | | [phone] | | | +--------+ + + + [...] | 2018 | Visit | | [address] | | | | | | [facility] | | | | | | [place] [address] | | | | | | [phone] | | | | | | | | +--------+ + + + + | 06/08/ | Office | Physical Medicine | Rocky Santos, | | | 2019 | Visit | and Rehabilitation | MD [address] | | | | | | [place] | | | | | | [address] | | | | | | | | +--------+ + + + + | 06/16/ | Appointment | Pulmonology | Eveline Jaffe | | | 2019 | | | MD [address] | | | | | | [address] [place] | | | | | | [place] [address] | | | | | | [phone] | | | | | | | | +--------+ + + + + | 06/16/ | Office | Pulmonology | Eveline Jaffe | | | 2019 | Visit | | MD [address] | | | | | | [address] [place] | | | | | | [place] [address] | | | | | | [phone] | | | | | | | | +--------+ + + + + | 08/24/ | Office | Cardiology | Anisha Lopez DO | | | 2019 | Visit | | [address] | | | | | | [place] | | | | | | [address] | | | | | | | [...] | | | | | | STJanet AVNN | | | | | | [...] + | [facility] | [address] | [place] | [phone] | | [facility] | | [address] | | | - LABORATORY | | [...] mL/min/1.73m2 | [facility] | | | SYRIAN | RATE,ESTIMATED | | MEDICAL | | | | mL/min/1.32c5Qpdo than | | CENTER - | | [...] | | ine Ratio | | | ST[facility] | | | | | | [...] [address] | [place] | [phone] | | [facility] | | [address] | | | - LABORATORY | | [...]
--- OUTSIDE RECORDS SUMMARY | ~2019-05-05 | XMS | Encounter Summary ---
Demographics + + + | Address | [address] | | | [place] [address] | + + + | Home Phone [...] [place] | | | | | [address] | | + + + + + Care Team Providers + +------+ + | Care Corporate Lawyer Name | Role | Phone | + +------+ + | Davis Ivan MD | PCP | | + +------+ + Encounter Details +--------+ + + + + | Date | Type | Department | Care Team | Description | +--------+ + + + + | 04/13/ | Hospital | [facility] | Offenstein, | Pulmonary nodule | | 2012 | Encounter | MED CTR LABORATORY | Ayana Looney MD | | | | | [address] | | | | | | [place] | | | | | | [address] | | | | | | [phone] | | | +--------+ + + + [...] | 2018 | Visit | | [address] | | | | | | [facility] | | | | | | [place] [address] | | | | | | [phone] | | | | | | | | +--------+ + + + + | 06/08/ | Office | Physical Medicine | Rocky Santos, | | | 2019 | Visit | and Rehabilitation | MD [address] | | | | | | [place] | | | | | | [address] | | | | | | | | +--------+ + + + + | 06/16/ | Appointment | Pulmonology | Eveline Jaffe | | | 2019 | | | MD [address] | | | | | | [address] [place] | | | | | | [place] [address] | | | | | | [phone] | | | | | | | | +--------+ + + + + | 06/16/ | Office | Pulmonology | Eveline Jaffe | | | 2019 | Visit | | MD [address] | | | | | | [address] [place] | | | | | | [place] [address] | | | | | | [phone] | | | | | | | | +--------+ + + + + | 08/24/ | Office | Cardiology | Anisha Lopez DO | | | 2019 | Visit | | [address] | | | | | | [place], [place] | | | | | | [address] | | | | | | | [...] Performed At | + + + | [facility] | S[facility] | | [address], [place] | SOO | | [ rep ct street1+2] [ rep ct [facility] | | st zip] Signed | - IMAGING | | | | | Patient Name: THEA CARMONA Physician: | | | ADELAIDAE.[id number] : 1945 Age: 67 Sex: F Unit #: [id number] | | | Exam Date: 04/13/13 Location: LAB | | | Report #: [id number] Page: | | | %(RAD)RES..mtdd.print.filter("pg") of %(RAD) | | | RES..mtdd.print.filter("tpg") | | | | | | Accession Number: [id number] | | | CHEST, PA AND LATERAL, [...] | | | Transcribed Date/Time: 04/13/2013 17:08 Warehouse Operations Associate: | | | <<Signature on File>> | | | Matheus | | | MD Kang04/13/13 5886 <Electronically signed by Matheus Kapadia MD> | | | Matheus Kapadia MD 04/13/13 3471 Warehouse Operations Associate: Quick2LAUNCHgeorgina | | | Icmwesfkksbdw31/13/13 4169 Ayana Taylor MD | | | | | + + + + + + + + | Performing | Address | City/State/Zipcode | Phone Number | | Organization | | | | + + + + + | [facility] | [address] | [place] | [phone] | | [facility] | | [address] | | | - IMAGING | | [...] + | [facility] | [address] | [place] | [phone] | | [facility] | | [address] | | | - LABORATORY | | | | + + + + + | [facility] | [address] | [place] | | | [facility] | | [address] | | | - LABORATORY | | | | + + + + + documented in this encounter Visit Diagnoses + + | Diagnosis | + + | Pulmonary nodule Solitary pulmonary nodule | + + documented in this encounter
--- OUTSIDE RECORDS SUMMARY | ~2019-05-05 | XMS | Encounter Summary ---
Demographics + + + | Address | [address] | | | [place] [address] | + + + | Home Phone [...] [place] | | | | | [address] | | + + + + + Care Team Providers + +------+ + | Care Social Media Marketing Specialist Name | Role | Phone [...] Squamous | Jimmy C, DO | [address] | | | | | cell | [address] | [place], | | | | | carcinoma of | [address] | [place] [address] | | | | | lung, stage | [place], | Phone: | | | | | I, right | [place] [address] | [phone] | | | | | (HCC) | Phone: | Fax: | | | | | Procedures | [phone] | [phone] | | | | | CT Treatment | Fax: | | | | | | Plan | [phone] | | | | | | Complex [...] | | | | carcinoma of | [address] | [place] [address] | | | | | lung, right | [place], | Phone: | | | | | ([facility]) | [place] [address] | [phone] | | | | | | | Fax: | | | | | | | [phone] | +--------+ + + + + + Encounter Details +--------+ + + + + | Date | Type | Department | Care Team | Description | +--------+ + + + + | 07/25/ | Hospital | [facility] | Jimmy Banegas DO | 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 | Encounter | MED CTR RADIATION | [address] | carcinoma of lung, | | | | ONCOLOGY [address] | [place], [place] | stage I, right (HCC) | | | | [place], | [address] | | | | | [place] [address] | | | | | | [phone] | | | +--------+ + + + [...] | | | | | [place] [address] | | | | | | [phone] | | | | | | | | +--------+ + + + + | 06/08/ | Office | Physical Medicine | Rocky Santos, | | | 2019 | Visit | and Rehabilitation | MD [address] | | | | | | [place] | | | | | | [address] | | | | | | | | +--------+ + + + + | 06/16/ | Appointment | Pulmonology | Eveline Jaffe | | 2019 | | | MD [address] | | | | | | [place] | | | | | | [place] [address] | | | | | | [phone] | | | | | | | | +--------+ + + + + | 06/16/ | Office | Pulmonology | Ld Eveline | | | 2019 | Visit | | MD Raul [address] | | | | | | [place] | | | | | | [place] [address] | | | | | | [phone] | | | | | | | | +--------+ + + + + | 08/24/ | Office | Cardiology | Anisha Lopez DO | | | 2019 | Visit | | [address] | | | | | | [place] | | | | | | [address] | | | | | | | [...] mL/min/1.73m2 | [facility] | | | [place] | | | MEDICAL | | | [...] + | [facility] | [address] | [place] | [phone] | | [facility] | | [address] | | | - LABORATORY | | | | + + + + + | [facility] | [address] | [place] | | | [facility] | | [address] | | | - LABORATORY | | [...] + | [facility] | [address] | [place], [place] | [phone] | | [facility] | | [address] | | | - LABORATORY | | | | + + + + + | [facility] | [address] | [place], [place] | | | [facility] | | [address] | | | - LABORATORY | | | | + + + + + documented in this encounter Visit Diagnoses + + | Diagnosis | + + | Squamous cell carcinoma of lung, stage I, right (HCC) | + + documented in this encounter"
--- OUTSIDE RECORDS SUMMARY | ~2019-05-05 | XMS | Encounter Summary ---
Demographics + + + | Address | [address] | | | [place] [address] | + + + | Home Phone [...] [place] | | | | | [address] | | + + + + + Care Team Providers + +------+ + | Care Manager Department Name | Role | Phone | + +------+ + | Davis Ivan MD | PCP | | + +------+ + Encounter Details +--------+ + + + + | Date | Type | Department | Care Team | Description | +--------+ + + + + | 07/03/ | Hospital | [facility] | Jimmy Banegas DO | | | 2016 | Encounter | MED CTR RADIATION | [address] | | | | | ONCOLOGY [address] | [place] | | | | | [place], | [address] | | | | | [place] [address] | | | | | | [phone] | | | +--------+ + + + [...] | | 0 | | | | (NACHO ALLERGY PO) | Daily. | | | [...] orally daily | 30 | 0 | 06/08/19 | | | (DELTASONE) 10 mg | for 3 days then | tablet | | 16 | 6 | | tablet | decrease by 1 tab | | | | | | | every 3 days. Resume | | | | | | | 10mg daily when | | | | | | [...] documented as of this encounter Progress Notes Jimmy Banegas, DO - 07/03/2015 12:00 AM PSTPATIENT: Thea Hernandez MathewDOS:07/03/2015#: [id number] :1945 Radiation Oncology Follow-up Clinic Note ICD/Diagnosis: 162.5 - Malignant neoplasm of lower lobe, bronchus or lung, Diagnosed 07/21/2013 (Active) CC: José Miguel Mace M.D. Davis Ivan M.D. Ja White M.D. Chief Complaint/History of Present Illness: Lung cancer I had the pleasure of seeing Thea Carmona today in clinic. She is a 69-year-old woman fro 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 She was overall staged as stage IIa (T2a, N0, M 0) moderately differentiated squamous carcinoma. She underwent bronchoscopy with thorascop ic right lower lobectomy on September 16, [address] Mace. Final pathology confirmed a 3.2 x 3.0 x 1.7 cm squamous cell carcinoma involving the right lower lobe that focally invaded t he visceral pleura without involvement of the visceral pleural surface. Surgical margins were negative and 10 lymph nodes were found negative for jignesh metastatic disease. Overall , she was surgically and clinically staged as Ib(pT2a,pN0,M0). She was later reevaluated at the [facility] multidisciplinary thoracic conference due to an enlarging 1.0 cm cavitary right upper lobe nodule with a right necrotic appearing hilar lymph node. She un derwent bronchoscopy with EBUS with biopsy on July 11, 2014 demonstrating keratinizing squamous cell carcinoma. Based upon staging workup she currently has stage II a (T2a, N1, M0) squamous cell carcinoma of the right upper lung from a metachronous primary. She recei mariann concurrent chemoradiotherapy with Taxol and carboplatin receiving a total irradiation d ose of 6600 cGy over 33 fractions using a 6 MV photon beam with a VMAT treatment technique that completed on September 21, 2014. 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 She subsequently underwent CT evaluation with contrast on March 20, 2015 with continued i nterval positive response with no evidence of recurrent or progressive disease. I personal ly reviewed these images and correlate the PET/CT findings with posttreatment effects from radiation in the right posterior upper lobe. She was recently seen by Dr. Park on June 22, 2015 with symptoms of progressive cough, shortness of breath, and sputum produc tion. She has been on steroids and antibiotics in the past with no improvement. A PET sca n was performed at [facility] on June 27, 2015 confirming an oval 2.3 x 1.6 soft tissue density superior and anterior to the right lower lobe stump within the of the right pulmonary hilum with an SUV of 4.9 concerning for return of squamous cell carcinoma. I personally reviewed these images and agree with the stated findings. She is scheduled t o see Dr. Park tomorrow for the initiation of chemotherapy. She currently has compl aints of fatigue, night sweats, productive cough without hemoptysis, generalized swelling o f her face and lower extremities, and shortness of breath upon exertion. She additionally describes symptoms of difficulty getting out of a chair. Review of Systems: ROS ConstitutionalAbnormal - Complains of fatigue. Complains of fever. Complains of night sweats. Complains of rigors / chills. Complains of a weight gain of 11 to 15 pounds. Denies lack of appetite.ROS EyesAbnormal - Complains of visual difficulties worsening vision and complains of recent floaters. Denies blurred vision and double vision.ROS ENMTAbnormal - Co mplains of esophagitis, mouth dryness, sinusitis and sputum production. Denies dysphagia, ear pain and oral bleeding.ROS NeckNormal - Denies neck masses, muscle weakness, neck pain, decreased range of motion and swelling of the neck.ROS IntegumentaryAbnormal - Complains o f blistering Lower extremity blistering related to increased edema and bruising. Denies dry skin, pruritus and rash. ROS BreastsNormal - Denies breast masses and pain.ROS Cardiovascu larAbnormal - Complains of dyspnea, edema and orthopnea. Denies arrhythmias, chest pain and palpitations.ROS RespiratoryAbnormal - Complains of cough with green sputum. ROS Gastroin testinalNormal - Denies abdominal pain, constipation, diarrhea, nausea and vomiting.ROS Gen itourinary (F)Normal - Denies dysuria, frequency, nocturia and urgency.ROS MusculoskeletalA bnormal - Complains of arthritis, joint pain and muscle weakness.ROS NeurologicAbnormal - C omplains of stroke 5 years ago. Denies dizziness, headaches, motor weakness and seizure.ROS PsychiatricNormal - Denies mood swings, depression and euphoria.ROS Endocrine Abnormal - Complains of thyroid disease. Denies diabetes and hot flashes.ROS Hematologic/LymphaticAbno rmal - Complains of easy bruising. Denies tender or enlarged lymph nodes. Medications: AMOXICILLIN AND CLAVULANATE POTASSIUM 875/125mg TABLET ORAL b.i.d. Albuterol 2.5mg/3mL MINERVA UTION Take as Directed Aspirin 81 mg Clonidine 0.1 mg TABLET Take as Directed Diazepam 2mg TABLET Take as Directed Effexor 37.5 mg TABLET Take as Directed Folic Acid 1 mg TABLET Take as Directed Iron 27 mg TABLET Take as Directed Lisinopril 10 mg Methotrexate 2.5 mg Omeprazole 20 mg Plavix 75 mg Prednisone 5 mg TABLET Take as Directed Pro air INHALANT Take as Directed Simvastatin 40 mg Synthroid 75 mcg Tudorza Pressair 400mcg INHALATION b.i.d. Vitamin D-3 1000 units Zanaflex 4 mg nacho 100 mg TABLET q.d. benzonatate 100 mg hydromorphone 4 mg TABLET Take as Directed levothyroine 100 mcg lorazepam 1 mg TABLET Take as Directed magnesium 250 mg ranitidine 150 mg symbicort INHALATION b.i.d. symbicort 160-45 mcg INHALATION b.i.d. venlafaxine 375mg TABLET q.d. Allergies: No Known Allergies Physical Exam: Performed on 07/03/2015, 14:01Weight 78.3 kg Temperature 36.9 C Pulse 87 / min Respiration 20 / min BP135/63 mm(hg) O2 Sat 93 % (LOW) Pain 5 PE ConstitutionalAbnormal - Presents with an altered mood described as being depressed. No evidence of impaired alertness, inadequate appearance, premature or advanced chronologic a ge, uncooperativeness, developmental delays and disorientation.PE HeadNormal - No evidence of alopecia, abnormal cephalic and scars. She has knight facies.PE EyesNormal - No evidence o f conjunctivitis and scleral abnormalities.PE NeckNormal - No evidence of tender or enlarge d lymph nodes, neck abnormalities and restricted range of motion.PE Integumentary Abnormal - Presents with dry skin. No evidence of bruising, erythema, nails changes, altered pigmen tation, rash and urticaria.PE CardiovascularNormal - No evidence of arterial pulse(s) abnor malities, abnormal heart rate and abnormal heart sounds.PE RespiratoryAbnormal - Presents w ith rhonchi in the right lower lung. No evidence of chest abnormalities on palpation and ch est abnormalities on percussion.PE ExtremitiesAbnormal - Presents with edema of a lower ex tremity(ies). Presents with edema of a upper extremity(ies). No evidence of tender or enlar ged lymph nodes.PE MusculoskeletalNormal - No evidence of bone abnormalities and joint abno rmalities.PE NeurologicNormal - No evidence of impaired cranial nerve(s).PE PsychiatricNorm al - No evidence of altered affect, lack of comprehension and disorientation.PE Hematologi c/LymphaticNormal - No evidence of tender or enlarged axillae lymph nodes, tender or enlarg ed lymph nodes and tender or enlarged neck lymph nodes. Questionnaires: Are you having pain?YesWhere does it hurt most?lower extremitiesRate your pain from 0-10: 0-10 scale with 0 = no pain and 10= worst [id number] your pain (quality) i.e. aching, s harp, stabbing, etc.sharpWhat do you use for pain medication? Name and dosehydromorphone 4 mg 2-4x/dayWhat is your numerical pain rating after taking pain medication? 0-10 scale with 0 = no pain and 10= worst pain3 Labs: See EMR for complete list Impression/Plan: 162.5 - Malignant neoplasm of lower lobe, bronchus or lung, Diagnosed 07/21/2013 (Active) S tage IIA, T2a, N1, M0. Recurrent non-small cell lung cancer in the right hilum. Stephanie Carmona is a 70-year-old woman who has previously been diagnosed with stage I non- small cell lung cancer with complicating medical issues. Ultimately, she underwent a right lower lobectomy with lymph node dissection. She developed a metachronous primary that was t reated by concurrent chemoradiotherapy using Taxol/carboplatin with a total dose of irradia tion of 66 Gy that she tolerated well. Posttreatment PET/CT and CT scans were stable to i mproving up to March 2015; however, restaging PET/CT recently performed in June trates an avid lymph node in the right hilum. She is currently scheduled for chemotherapy under the direction of Dr. Park that will begin tomorrow. I discussed the limited r ole of additional external beam radiation therapy at this time. I would limit to palliativ e retreatment if salvage chemotherapy fails and she continues to have a local only disease. I will continue to follow her under the care of Dr. Park moving forward. She was e ncouraged to call our clinic with any further questions or concerns. Thank you for allowing me to participate in the care of Thea Carmona. If you shou abbe have any questions regarding this evaluation, please do not hesitate to contact me. Jimmy Banegas D.O., SACHIR Radiation Oncologist Department of Radiation Oncology [facility] This note was transcribed using [employer] speech recognition software. As a result, there ma y be unintended for medical and/or spelling errors. Every attempt is made to correct dicta tion. If there are any questions or errors please contact our office. Page 1 of 3 CSN: [id number] signed by Jimmy Banegas DO at 07/05/2015 2:42 PM PSTdoeric chen in this encounter Plan of Treatment +--------+ + + + + | Date | Type | Specialty | Care Team | Description | +--------+ + + + + | 05/30/ | Office | Rheumatology | Santosh Sumner, | | | 2018 | Visit | | [address] | | | | | | [facility] | | | | | | [place] [address] | | | | | | [phone] | | | | | | | | +--------+ + + + + | 06/08/ | Office | Physical Medicine | Rocky Santos, | | | 2019 | Visit | and Rehabilitation | MD Nichole [address] | | | | | | [place] | | | | | | [address] | | | | | | | | +--------+ + + + + | 06/16/ | Appointment | Pulmonology | Eveline Jaffe | | | 2019 | | | MD [address]ole [address] | | | | | | [address] | | | | | | [place] [address] | | | | | | [phone] | | | | | | | | +--------+ + + + + | 06/16/ | Office | Pulmonology | Eveline Jaffe | | | 2019 | Visit | | MD [address]ole [address] | | | | | | [address] [place] | | | | | | [place] [address] | | | | | | [phone] | | | | | | | | +--------+ + + + + | 08/24/ | Office | Cardiology | Anisha Lopez DO | | | 2019 | Visit | | [address] | | | | | | [place] | | | | | | [address] | | | | | | | | +--------+ + + + + documented as of this encounter Visit Diagnoses Not on filedocumented in this encounter"
--- OUTSIDE RECORDS SUMMARY | ~2019-05-05 | XMS | Encounter Summary ---
Demographics + + + | Address | [address] | | | [place] [address] | + + + | Home Phone [...] [place] | | | | | [address] | | + + + + + Care Team Providers + +------+ + | Care Environmental Research Project Manager Name | Role | Phone | [...] | | | | | | [place] [address] | | | | | | [phone] | | | +--------+ + + + [...] W | | | | | | [facility] | | | | | | [place] [address] | | | | | | [phone] | | | | | | | | +--------+ + + + + | 06/08/ | Office | Physical Medicine | Rocky Santos, | | | 2019 | Visit | and Rehabilitation | [address] | | | | | | [place] | | | | | | [address] | | | | | | | | +--------+ + + + + | 06/16/ | Appointment | Pulmonology | Eveline Jaffe | | | 2019 | | | MD [address]ole [address] | | | | | | [address] [place] | | | | | | [place], [place] [address] | | | | | | [phone] | | | | | | | | +--------+ + + + + | 06/16/ | Office | Pulmonology | Eveline Jaffe | | | 2019 | Visit | | MD Nichole [address] | | | | | | [address] [place] | | | | | | [place] [address] | | | | | | [phone] | | | | | | | | +--------+ + + + + | 08/24/ | Office | Cardiology | Anisha Lopez DO | | | 2019 | Visit | | [address] | | | | | | [place] | | | | | | [address] | | | | | | | | +--------+ + + + + documented as of this encounter Visit Diagnoses Not on filedocumented in this encounter"
--- OUTSIDE RECORDS SUMMARY | ~2019-05-05 | XMS | Encounter Summary ---
Demographics + + + | Address | [address] | | | [place] [address] | + + + | Home Phone [...] [place] | | | | | [address] | | + + + + + Care Team Providers + +------+ + | Care Machine Setter Supervisor Name | Role | Phone | [...] + + | 09/06/ | Office | [facility] | Giuliano Padilla, | Trigger finger of | | 2019 | Visit | ORTHOPEDIC SURGERY | MD [address] [place] [address] | left thumb (Primary | | | | [address] [facility] | [place] | Dx); Trigger finger, | | | | [place] | [address] | left ring finger; | | | | [address] | | Trigger middle | | | | [phone] | | finger of left hand | [...] | | | | | [place] [address] | | | | | | [phone] | | | | | | | | +--------+ + + + + | 06/08/ | Office | Physical Medicine | Rocky Santos, | | | 2019 | Visit | and Rehabilitation | MD [address] | | | | | | [place] | | | | | | [address] | | | | | | | | +--------+ + + + + | 06/16/ | Appointment | Pulmonology | Eveline Jaffe | | 2019 | | | MD [address] | | | | | | [place] | | | | | | [place] [address] | | | | | | [phone] | | | | | | | | +--------+ + + + + | 06/16/ | Office | Pulmonology | Ld Eveline | | | 2019 | Visit | | MD Raul [address] | | | | | | [place] | | | | | | [place] [address] | | | | | | [phone] | | | | | | | | +--------+ + + + + | 08/24/ | Office | Cardiology | Anisha Lopez DO | | | 2019 | Visit | | [address] | | | | | | [place] | | | | | | [address] | | | | | | | [...]
--- OUTSIDE RECORDS SUMMARY | ~2019-05-05 | XMS | Encounter Summary ---
Demographics + + + | Address | [address] | | | [place] [address] | + + + | Home Phone [...] [place] | | | | | [address] | | + + + + + Care Team Providers + +------+ + | Care Call Center Operator Name | Role | Phone | [...] | | | | [place], | [place] [address] | | | | | | [place] [address] | Phone: | | | | | | Phone: | [phone] | | | | | | [phone] | Fax: | | | | | | Fax: | [phone] | | | | | | [phone] | | + +--------+ + + + + Encounter Details +--------+---------+ + + + | Date | Type | Department | Care Team | Description | +--------+---------+ + + + | 03/30/ | Office | [facility] | Rodney Worthy | Osteoarthritis of | | 2019 | Visit | ORTHOPEDIC SURGERY | MD [address] | right wrist, | | | | [address] [facility] | [facility] | unspecified | | | | [place] | [place] [address] | osteoarthritis type | | | | [address] | [phone] | (Primary Dx); Right | | | | [phone] | | wrist pain; Chronic | | [...] might be dif ferent from the original. [facility] RETURN CLINIC VISIT Pt. Name/Age/: Thea [...] Arrhythmia Arthritis COPD (chronic obstructive pulmonary disease) ([facility]) on albuterol Depression HANNAH (dyspnea on exertion) Full dentures upper & lower GERD (gastroesophageal reflux disease) Hyperlipidemia on simvastatin Hypertension on clonidine and lisinopril Hypothyroidism Obesity MARCE (obstructive sleep apnea) no CPAP Osteoporosis Pneumonia 2008 hospitalized 5 days Recurrent squamous cell carcinoma of lung ([facility]) 07/11/[address] and RUL nodule Rheumatoid arthritis(714.0) on prednisone and methotrexate, Dr. Lewis, [place] Spinal stenosis has tried cortisone injections Spondylolisthesis of cervical region Sputum culture positive for Scopulariopsis species Squamous cell carcinoma of lung ([facility]) 07/2013 right lower lobe Stroke ([facility]) 2006 Stroke ([facility]) 2007 left sided weakness Upper GI bleed 06/[address] [facility] Wears dentures Past Surgical History: Procedure Laterality Date BACK SURGERY 03/2014 BLADDER SUSPENSION BRONCHOSCOPY 07/11/2014 EBUS with right hilar LN biopsy, [facility] Dr. Sierra CERVICAL SPINE SURGERY 2012 CHOLECYSTECTOMY COLONOSCOPY 06/2014 ENDOSCOPY FINGER TRIGGER RELEASE Left 12/14/2018 Procedure: Left Thumb Trigger Finger Release, Left Index Trigger Finger Release, Left Long Trigger Finger Release, Left Ring Trigger Finger Release; Surgeon: Giuliano Padilla MD; Lo cation: [facility] MAIN OR HAND ARTHROPLASTY Left 03/20/2015 Procedure: Left 1st C.M.C. Arthroplasty; Surgeon: Giuliano Padilla MD; Location: [facility] MA[facility] OR HAND ARTHROPLASTY Right 10/27/2017 Procedure: Right 1st CMC Arthroplasty; Surgeon: Giuliano Padilla MD; Location: [facility] MA[facility] O R HYSTERECTOMY LOBECTOMY 09/16/13 right lower lobe LUNG BIOPSY 07/21/13 right lower lobe SHOULDER SURGERY SHOULDER SURGERY right shoulder THUMB SURGERY TONGUE SURGERY benign per pt TUNNELED VENOUS PORT PLACEMENT N/A 07/28/2014 Procedure: Port Placement; Surgeon: Chalino Chiu MD; Location: [facility] MAIN OR Allergies: No Known Allergies [...] Supplies (NEBULIZER/TUBING/MOUTHPIECE) KIT Use as directed with [employer] ulizer machine. 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 I think that is useful. Her pain [...] made to ensure accuracy; however, inadvertent computerized stagecraft professor errors may be pre sent. I appreciate [...] | | | | | | [facility] | | | | | | [place] [address] | | | | | | [phone] | | | | | | | | +--------+ + + + + | 06/08/ | Office | Physical Medicine | Rocky Santos, | | | 2019 | Visit | and Rehabilitation | MD Nichole [address] | | | | | | [place] | | | | | | [address] | | | | | | | | +--------+ + + + + | 06/16/ | Appointment | Pulmonology | Eveline Jaffe | | 2019 | | | MD Nichole Carter | | | | | | [address] | | | | | | [place] [address] | | | | | | [phone] | | | | | | | | +--------+ + + + + | 06/16/ | Office | Pulmonology | Eveline Jaffe | | 2019 | Visit | | Sherrin, MD [address] | | | | | | [address] | | | | | | [place] [address] | | | | | | [phone] | | | | | | | | +--------+ + + + + | 08/24/ | Office | Cardiology | Anisha Lopez DO | | | 2019 | Visit | | [address] | | | | | | [place] | | | | | | [address] | | | | | | | [...]
--- OUTSIDE RECORDS SUMMARY | ~2019-05-05 | XMS | Encounter Summary ---
Demographics + + + | Address | [address] | | | [place] [address] | + + + | Home Phone [...] [place] | | | | | [address] | | + + + + + Care Team Providers + +------+ + | Care Diabetes Clinical Manager Name | Role | Phone | [...] W | | | | | | [place], | | | | | | [place] [address] | | | | | | [phone] | | | +--------+ + + + [...] + documented as of this encounter Progress Keyana Walsh OT - 08/15/2014 11:28 [facility] OP [address] [place] [address] Oncology Rehab Screening Date: 08/15/2014 Patient Information Patient Name: Thea Carmona Date of : 1945 Age: 69 y.o. Patient was seen for follow up visit by [place] clinical rehabilitation aide. Patient very somnolent at time o f [...] | 2018 | Visit | | [address] | | | | | | [facility] | | | | | | [place] [address] | | | | | | [phone] | | | | | | | | +--------+ + + + + | 06/08/ | Office | Physical Medicine | Rocky Santos, | | | 2019 | Visit | and Rehabilitation | MD [address] | | | | | | [place] | | | | | | [address] | | | | | | | | +--------+ + + + + | 06/16/ | Appointment | Pulmonology | Eveline Jaffe | | | 2019 | | | MD Nichole [address] | | | | | | [address] | | | | | | [place] [address] | | | | | | [phone] | | | | | | | | +--------+ + + + + | 06/16/ | Office | Pulmonology | Eveline Jaffe | | | 2019 | Visit | | MD Nichole [address] | | | | | | [address] [place] | | | | | | [place] [address] | | | | | | [phone] | | | | | | | | +--------+ + + + + | 08/24/ | Office | Cardiology | Anisha Lopez DO | | | 2020 | Visit | | [address] | | | | | | [place] | | | | | | [address] | | | | | | | | +--------+ + + + + documented as of this encounter Visit Diagnoses Not on filedocumented in this encounter"
--- OUTSIDE RECORDS SUMMARY | ~2019-05-05 | XMS | Encounter Summary ---
Demographics + + + | Address | [address] | | | [place] [address] | + + + | Home Phone [...] [place] | | | | | [address] | | + + + + + Care Team Providers + +------+ + | Care Pediatrics Teacher Name | Role | Phone | + +------+ + | Davis Ivan MD | PCP | | + +------+ + Encounter Details +--------+ + + + + | Date | Type | Department | Care Team | Description | +--------+ + + + + | 07/25/ | Hospital | [facility] | Jimmy Banegas DO | Malignant neoplasm | | 2015 | Encounter | [facility] | [address] | of right lung, | | | | ONCOLOGY CLINIC [address] | [place], [place] | unspecified part of | | | | [address] | [address] | lung (HCC) (Primary | | | | [place] [address] | | Dx) | | | | [phone] | | | +--------+ + + + [...] | | | | | [place] [address] | | | | | | [phone] | | | | | | | | +--------+ + + + + | 06/08/ | Office | Physical Medicine | Rocky Sanots, | | | 2019 | Visit | and Rehabilitation | MD [address] | | | | | | [place] | | | | | | [address] | | | | | | | | +--------+ + + + + | 06/16/ | Appointment | Pulmonology | Eveline Jaffe | | 2019 | | | MD [address] | | | | | | [address] [place] | | | | | | [place] [address] | | | | | | [phone] | | | | | | | | +--------+ + + + + | 06/16/ | Office | Pulmonology | Eveline Jaffe | | | 2019 | Visit | | MD [address] | | | | | | [address] [place] | | | | | | [place] [address] | | | | | | [phone] | | | | | | | | +--------+ + + + + | 08/24/ | Office | Cardiology | Anisha Lopez DO | | 2019 | Visit | | [address] | | | | | | [place] | | | | | | [address] | | | | | | | | +--------+ + + + + documented as of this encounter Visit Diagnoses + + | Diagnosis | + + | Malignant neoplasm of right lung, unspecified part of lung (HCC) - Primary | + + documented in this encounter"
--- OUTSIDE RECORDS SUMMARY | ~2019-05-05 | XMS | Encounter Summary ---
Demographics + + + | Address | [address] | | | [place] [address] | + + + | Home Phone [...] [place] | | | | | [address] | | + + + + + Care Team Providers + +------+ + | Care Hvac Services Professional Name | Role | Phone | + [...] [address] | | | | | [phone] | [place] [address] | | +--------+ + + + + [...] | | | | | [place] [address] | | | | | | [phone] | | | | | | | | +--------+ + + + + | 06/08/ | Office | Physical Medicine | Rocky Santos | | | 2019 | Visit | and Rehabilitation | MD [address] | | | | | | [place] | | | | | | [address] | | | | | | | | +--------+ + + + + | 06/16/ | Appointment | Pulmonology | Eveline Jaffe | | 2019 | | | MD [address] | | | | | | [address] | | | | | | [place] [address] | | | | | | [phone] | | | | | | | | +--------+ + + + + | 06/16/ | Office | Pulmonology | Eveline Jaffe | | | 2019 | Visit | | MD Raul [address] | | | | | | [address] | | | | | | [place] [address] | | | | | | [phone] | | | | | | | | +--------+ + + + + | 08/24/ | Office | Cardiology | Anisha Lopez DO | | | 2019 | Visit | | [address] | | | | | | [place] | | | | | | [address] | | | | | | | [...]
--- OUTSIDE RECORDS SUMMARY | ~2019-05-05 | XMS | Encounter Summary ---
Demographics + + + | Address | [address] | | | [place] [address] | + + + | Home Phone [...] [place] | | | | | [address] | | + + + + + Care Team Providers + +------+ + | Care Demolitionist Name | Role | Phone | + [...] | Authorized | | | Diagnoses | [place], | [address] | | | | | Impingement | [facility] | | | | | syndrome of | [place], | [address] | | | | | left | MD [address] | | | | | shoulder | [address] | [place], [place] | | | | | Muscle left | [place], | [address] | | | | | arm weakness | [place] | Phone: | | | | | Procedures | [address] | [phone] | | | | | MRI | Phone: | Fax: | | | | | Shoulder | [phone] | [phone] | | | | | Left wo | Fax: | | | | | | Contrast | [phone] | | + +--------+ + + + [...] | | | | shoulder | [place] [address] | [place] | | | | | | Phone: | [address] | | | | | | [phone] | Phone: | | | | | | Fax: | [phone] | | | | | | [phone] | Fax: | | | | | | | [phone] | + +--------+ + + + + Encounter Details +--------+---------+ + + + | Date | Type | Department | Care Team | Description | +--------+---------+ + + + | 03/01/ | Office | [facility] | Rodney Worthy | Impingement syndrome | | 2019 | Visit | ORTHOPEDIC SURGERY | MD [address] | of left shoulder | | | | [address] | [address] [facility] | (Primary Dx); Muscle | | | | [place], [place] | [place] [address] | left arm weakness | | | | [address] | [phone] | | | | | [phone] | | | +--------+---------+ + + + [...] strength Fever or chills Date Last Reviewed: 12/31/201519999952-6286 [employer]. [address] [place] [address]. All righ ts reserved. This information is not intended as a substitute for professional medical care. Always follow your healthcare professional's instructions. documented in this encounter Progress Notes Rodney Worthy MD - 03/01/2019 2:30 PM PDTFormatting of this note might be dif ferent from the original. [facility] RETURN CLINIC VISIT Pt. Name/Age/: [...] days Recurrent squamous cell carcinoma of lung ([facility]) 07/11/[address] and RUL nodule Rheumatoid arthritis(714.0) on prednisone and methotrexate, Dr. Lewis [place] Spinal stenosis has tried cortisone injections Spondylolisthesis of cervical region Sputum culture positive for Scopulariopsis species Squamous cell carcinoma of lung ([facility]) 07/2013 right lower lobe Stroke ([facility]) 2006 Stroke ([facility]) 2007 left sided weakness Upper GI bleed 06/2014 admitted [place] Wears dentures Past Surgical History: Procedure Laterality Date BACK SURGERY 03/2014 BLADDER SUSPENSION BRONCHOSCOPY 07/11/2014 EBUS with right hilar LN biopsy, [facility] Dr. [facility] CERVICAL SPINE SURGERY 2012 CHOLECYSTECTOMY COLONOSCOPY 06/2014 ENDOSCOPY FINGER TRIGGER RELEASE Left 12/14/2018 Procedure: Left Thumb Trigger Finger Release, Left Index Trigger Finger Release, Left Long Trigger Finger Release, Left Ring Trigger Finger Release; Surgeon: Giuliano Padilla MD; Lo cation: [facility] MAIN OR HAND ARTHROPLASTY Left 03/20/2015 Procedure: Left 1st C.M.C. Arthroplasty; Surgeon: Giuliano Padilla MD; Location: [facility] MAIN OR HAND ARTHROPLASTY Right 10/27/2017 Procedure: Right 1st CMC Arthroplasty; Surgeon: Giuliano Padilla MD; Location: [facility] MAIN O R HYSTERECTOMY LOBECTOMY 09/16/13 right lower lobe LUNG BIOPSY 07/21/13 right lower lobe SHOULDER SURGERY SHOULDER SURGERY right shoulder THUMB SURGERY TONGUE SURGERY benign per pt TUNNELED VENOUS PORT PLACEMENT N/A 07/28/2014 Procedure: Port Placement; Surgeon: Chalino Chiu MD; Location: [facility] MAIN OR Allergies: No Known [...] if needed for sinus dragan estion 0 ygovrgh-vefbieopto-ezvlveeyu pertussis (BOOSTRIX) 5-2.5-18.5 LF-MCG/0.5 injection Boost oracio [...] non-medical: Not on file Occupational History 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 I appreciate [...] | | | | | [place] [address] | | | | | | [phone] | | | | | | | | +--------+ + + + + | 06/08/ | Office | Physical Medicine | Rocky Santos | | | 2019 | Visit | and Rehabilitation | [address] | | | | | | [place] | | | | | | [address] | | | | | | | | +--------+ + + + + | 06/16/ | Appointment | Pulmonology | Eveline Jaffe | | 2019 | | | MD [address] | | | | | | [address] [place] | | | | | | [place] [address] | | | | | | [phone] | | | | | | | | +--------+ + + + + | 06/16/ | Office | Pulmonology | Eveline Jaffe | | | 2019 | Visit | | MD [address] | | | | | | [address] [place] | | | | | | [place], [place] [address] | | | | | | [phone] | | | | | | | | +--------+ + + + + | 08/24/ | Office | Cardiology | Anisha Lopez DO | | | 2019 | Visit | | [address] | | | | | | [place] | | | | | | [address] | | | | | | | [...]
--- OUTSIDE RECORDS SUMMARY | ~2019-05-05 | XMS | Encounter Summary ---
Demographics + + + | Address | [address] | | | [place] [address] | + + + | Home Phone [...] [place] | | | | | [address] | | + + + + + Care Team Providers + +------+ + | Care Consulting Property Manager Name | Role | Phone | [...] | 09/14/ | Telephone | [facility] | Adelita Lu MD | Other | | 2013 | | [facility] CTR [facility] | [address] [facility] | | | | | ONCOLOGY CLINIC [address] | [place] | | | | | [facility] | [address] | | | | | [place] [address] | [phone] | | | | | [phone] | | | +--------+ + + + [...] W | | | | | | [facility] | | | | | | [place] [address] | | | | | | [phone] | | | | | | | | +--------+ + + + + | 06/08/ | Office | Physical Medicine | Rocky Santos, | | | 2019 | Visit | and Rehabilitation | [address] | | | | | | [place] | | | | | | [address] | | | | | | | | +--------+ + + + + | 06/16/ | Appointment | Pulmonology | Eveline Jaffe | | | 2019 | | | MD [address] | | | | | | [address] [place] | | | | | | [place] [address] | | | | | | [phone] | | | | | | | | +--------+ + + + + | 06/16/ | Office | Pulmonology | Eveline Jaffe | | | 2019 | Visit | | MD [address] | | | | | | [address] [place] | | | | | | [place], [place] [address] | | | | | | [phone] | | | | | | | | +--------+ + + + + | 08/24/ | Office | Cardiology | Anisha Lopez DO | | | 2019 | Visit | | [address] | | | | | | [place] | | | | | | [address] | | | | | | | | +--------+ + + + + documented as of this encounter Visit Diagnoses Not on filedocumented in this encounter"
--- OUTSIDE RECORDS SUMMARY | ~2019-05-05 | XMS | Encounter Summary ---
Demographics + + + | Address | [address] | | | [place] [address] | + + + | Home Phone [...] [place] | | | | | [address] | | + + + + + Care Team Providers + +------+ + | Care Boilermaker Assembly And Erection Name | Role | Phone | + +------+ + | Caitlin Chino MD | PCP | | + +------+ + Encounter Details +--------+ + + + + | Date | Type | Department | Care Team | Description | +--------+ + + + + | 09/01/ | Orders Only | [facility] | Gurmete Vargas | Tachypnea | | 2019 | | PULMONARY [address] | MD [address] | | | | | [place], | [place] | | | | | [place] [address] | [place] [address] | | | | | [phone] | [phone] | | | | | | | [...] [place] | | | | | | [place] [address] | | | | | | [phone] | | | | | | | | +--------+ + + + + | 06/08/ | Office | Physical Medicine | Rocky Santos, | | | 2019 | Visit | and Rehabilitation | MD [address] | | | | | | [place] | | | | | | [address] | | | | | | | | +--------+ + + + + | 06/16/ | Appointment | Pulmonology | Eveline Jaffe | | 2019 | | | MD [address] | | | | | | [address] | | | | | | [place] [address] | | | | | | [phone] | | | | | | | | +--------+ + + + + | 06/16/ | Office | Pulmonology | Eveline Jaffe | | | 2019 | Visit | | MD Raul [address] | | | | | | [address] [address] | | | | | | [place] [address] | | | | | | [phone] | | | | | | | | +--------+ + + + + | 08/24/ | Office | Cardiology | Anisha Lopez DO | | | 2019 | Visit | | [address] | | | | | | [place] | | | | | | [id number] | | | | | | | [...] + | Performed at: 01 - [facility] [place] [address], | REFERENCE LAB | | [place], [place] [id number] Radio Journalist: Kodak Collins MD, Phone: | [facility] | | [phone] | | + + + + + + + + | Performing | Address | City/State/Zipcode | Phone Number | | Organization | | | | + + + + + | REFERENCE LAB | [address] | [place] [address] | [phone] | | [facility] | Noelle Morales [...] [address] | [place] | [phone] | | [facility] | | [address] | | | - LABORATORY | | | | + + + + + documented in this encounter Visit Diagnoses + + | Diagnosis | + + | Tachypnea | + + documented in this encounter"
--- OUTSIDE RECORDS SUMMARY | ~2019-05-05 | XMS | Encounter Summary ---
Demographics + + + | Address | [address] | | | [place] [address] | + + + | Home Phone [...] [place] | | | | | [address] | | + + + + + Care Team Providers + +------+ + | Care Perinatology Physician Name | Role | Phone | + +------+ + | Davis Ivan MD | PCP | | + +------+ + Reason for Visit +--------+ + | Reason | Comments | +--------+ + | Other | Referral to [facility] | +--------+ + Encounter Details +--------+ + + + + | Date | Type | Department | Care Team | Description | +--------+ + + + + | 07/06/ | Telephone | [facility] | Claudia, | Other (Referral to | | 2013 | | PULMONARY [address] | Ayana Looney MD | [facility] | | | | [place], | | ) | | | | [place] [address] | | | | | | [phone] | | | +--------+ + + + [...] | | | | | [place] [address] | | | | | | [phone] | | | | | | | | +--------+ + + + + | 06/08/ | Office | Physical Medicine | Rocky Santos, | | | 2019 | Visit | and Rehabilitation | MD [address] | | | | | | [place] | | | | | | [address] | | | | | | | | +--------+ + + + + | 06/16/ | Appointment | Pulmonology | Eveline Jaffe | | 2019 | | | MD [address] | | | | | | [address] | | | | | | [place] [address] | | | | | | [phone] | | | | | | | | +--------+ + + + + | 06/16/ | Office | Pulmonology | Eveline Jaffe | | | 2019 | Visit | | MD Raul [address] | | | | | | [address] | | | | | | [place] [address] | | | | | | [phone] | | | | | | | | +--------+ + + + + | 08/24/ | Office | Cardiology | Anisha Lopez DO | | | 2019 | Visit | | [address] | | | | | | [place] | | | | | | [address] | | | | | | | | +--------+ + + + + documented as of this encounter Visit Diagnoses Not on filedocumented in this encounter"
--- OUTSIDE RECORDS SUMMARY | ~2019-05-05 | XMS | Clinical Summary ---
Demographics + + + | Address | [address] | | | [place] [address] | + + + | Home Phone [...] [place] | | | | | [address] | | + + + + + Care Team Providers + +------+ + | Care Cable Stretcher And Tester Name | Role | Phone | [...] | | | | type ([facility]) | | | | | | | [...] | | | | type ([facility]) | | | | | | | [...] automatically from request for surgery | | [id number] | + + + + + | Trigger finger, left middle finger | 12/08/2018 | + + + + + | Overview: Added automatically from request for surgery | | [id number] | + + + + + | [...] automatically from request for surgery | | [id number] | + + + + + | Trigger middle finger of left hand | 09/07/2018 | + + + + + | Overview: Added automatically from request for surgery | | [id number] | + + + + + | [...] | | interventional radiology at [facility] of the right lung massshows | [...] Dr. Mace , thoracic surgeon at [facility] for | | consideration of [...] in August 20149. Admitted to | | [facility] on September 27, 2014 for right-sided chest | | pain secondary to acute bronchitis.10. CT chest [facility] on September 28, 2014 demonstrated persistent 32 mm x 26 mm | | x 27 mm Right Hilar Mass. Last Assessment & Plan: Stephanie | | returned to the [facility] on | | November 09, 2014 for follow up of her locally recurrent RIGHT Lung | | cancer. Interval history is notable for the fact that Thea was | | admitted to [facility] in [place], [place] for acute | | exacerbation of chronic bronchitis. During her hospitalization | | there, a chest CT was performed demonstrating a persistent 32 x | | 26 mm right hilar mass. These images were reviewed subsequently | | at the [facility] on their PACS system. Radiographic | [...] persistent disease. PET/CT schedule | | at [facility] on December 21, 2014 with follow up at [facility] | | the [...] fibrillation | | | | | | ([facility]); Essential | | | | | | [...] arthritis | | 2019 | | | [place] | (HCC) | +--------+ + + + [...] | | | | | [place] [address] | | | | | | [phone] | | | | | | | | +--------+ + + + + | 06/08/ | Office | Physical Medicine | Rocky Santos, | | | 2019 | Visit | and Rehabilitation | MD Nichole Landis | | | | | | [place] | | | | | | [address] | | | | | | | | +--------+ + + + + | 06/16/ | Appointment | Pulmonology | Eveline Jaffe | | 2019 | | | MD Nichole Carter [address] | | | | | | [address] | | | | | | [place] [address] | | | | | | [phone] | | | | | | | | +--------+ + + + + | 06/16/ | Office | Pulmonology | Eveline Jaffe | | | 2019 | Visit | | MD Raul [address] | | | | | | [address] | | | | | | [place] [address] | | | | | | [phone] | | | | | | | | +--------+ + + + + | 08/24/ | Office | Cardiology | Anisha Lopez DO | | | 2019 | Visit | | [address] | | | | | | [place] | | | | | | [address] | | | | | | | [...] | N/A: | | | 08/20/ | [id number] | | Dbx 2.5ml - | | Spine | | | 2014 | | | [id number]: | | Cervic | | | | /21287 | | Qty: 1 on 01/19/2013 by | | al | | | | 369029 | | Silviano Cabrera MD | | | | | | [address]214 | | | | | | | | 8 / | + +------+--------+ +--------+--------+--------+ | Cage Triad Allograft | | N/A: | | | 08/16/ | 074004 | | [id number] - | | Spine | | | 2017 | 7 | | [id number]: Qty: 1 | | Cervic | | | | /83650 | | on 01/19/2013 by Rick, | | al | | | | 8-185 | | MD Silviano | | | | | | / | + +------+--------+ +--------+--------+--------+ | Cage Triad Allograft 6mm - | | N/A: | | | 06/23/ | 806605 | | [id number]: Qty: 1 | | Spine | | | 2018 | 6 | | on 01/19/2013 by Rick, | | Cervic | | | | /70884 | | MD Silviano | | al | | | | 0-206 | | | | | | | | / | + +------+--------+ +--------+--------+--------+ | Screw Vectra Self Drilling | | N/A: | | | | 04.613 | | Variable Angle 4.0x14mm - | | Spine | | | | .514 | | [id number]: Qty: 2 on | | Cervic | | | | /04950 | | 01/19/2013 by Silviano Cabrera, | | al | | | | 514 / | | | | | | | | | + +------+--------+ +--------+--------+--------+ | Screw Vectra Self Drilling | | N/A: | | | | 04.613 | | Variable Angle 3bih49tr - | | Spine | | | | .516 | | [id number]: Qty: 2 on | | Cervic | | | | /03411 | | 01/19/2013 by Silviano Cabrera, | | al | | | | 516 / | | MD | | | | | | | + +------+--------+ +--------+--------+--------+ | Screw Vectra Self Drilling | | N/A: | | | | 04.613 | | Fixed Angle 4.0x14mm - | | Spine | | | | .714 | | [id number]: Qty: 2 on | | Cervic | | | | /60778 | | 01/19/2013 by Silviano Cabrera, | | al | | | | 714 / | | MD | | | | | | | + +------+--------+ +--------+--------+--------+ | Plate Vectra Cervical 30mm - | | N/A: | | | | 04.613 | | [id number]: Qty: 1 on | | Spine | | | | .130 | | 01/19/2013 by Silviano Cabrera, | | Cervic | | | | /41089 | | MD | | al | | | | 130 / | + +------+--------+ +--------+--------+--------+ | Allograft Osteocell 10cc | | | | | 08/25/ | 043909 | | [id number] - | | | | | 2018 | 0 | | [id number]: Qty: 1 | | | | | | /54082 | | on 04/06/2013 | | | | | | 1542 / | + +------+--------+ +--------+--------+--------+ | Allograft Putty Freeze Dried | | N/A: | | | 11/10/ | 098398 | | Demineralized Bone Matrix Dbx | | Spine | | | 2014 | | | 1ml - | | Cervic | | | | /56899 | | [id number]: | | al | | | | 722142 | | Qty: 1 on 04/06/2013 by | | | | | | 915618 | | Silviano Cabrera MD | | | | | | 1 / | + +------+--------+ +--------+--------+--------+ | Allograft Putty Freeze Dried | | N/A: | | | 10/20/ | 147147 | | Dbx 2.5ml - | | Spine | | | 2014 | | | [id number]: | | Cervic | | | | /87861 | | Qty: 1 on 04/06/2013 by | | al | | | | 437348 | | Silviano Cabrera MD | | | | | | 650598 | | | | | | | | 3 / | + +------+--------+ +--------+--------+--------+ | Screw Vuepoint Post Cerv | | N/A: | | | | 813214 | | 3.5x12mm - [id number]: | | Spine | | | | 2 | | Qty: 3 on 04/06/2013 by | | Altagraciaic | | | | /23202 | | Silviano Cabrera MD | | al | | | | 12 / | + +------+--------+ +--------+--------+--------+ | Screw Vuepoint Post Cerv | | N/A: | | | | 839207 | | 3.5x14mm - [id number]: | | Spine | | | | 4 | | Qty: 1 on 04/06/2013 by | | Cervic | | | | /47620 | | Silviano Cabrera MD | | al | | | | 14 / | + +------+--------+ +--------+--------+--------+ | Srini Vuepoint 3.5x60mm - | | N/A: | | | | 529592 | | [id number]: Qty: 1 on | | Spine | | | | 0 | | 04/06/2013 by Silviano Cabrera, | | Cervic | | | | /68092 | | MD | | al | | | | 60 / | + +------+--------+ +--------+--------+--------+ | Screw Vuepoint Post Cerv Set | | N/A: | | | | 974703 | | Tulip & Hook - | | Spine | | | | 0 | | [id number]: Qty: 4 on | | Cervic | | | | /59991 | | 04/06/2013 by Silviano Cabrera, | | al | | | | 00 / | | MD | | | | | | | + +------+--------+ +--------+--------+--------+ | Graft Sponge Kit Bone Infuse | | | MEDTRONIC - | | | 500704 | | Medium 56ml - | | | MEDT | | | 0 / | | [id number]: Qty: 1 on | | | | | | /[id number] | | 03/29/2014 by Silviano Cabrera, | | | | | | 05AA6 | | MD | | | | | | | + +------+--------+ +--------+--------+--------+ | Triad Alif Allograft | | | NUVASIVE - | | 08/02/ | 477811 | | [id number]: Qty: 1 on | | | NVSV | | 2018 | 4 | | 03/29/2014 by Silviano Cabrera, | | | | | | /14562 | | MD | | | | | | 0-065 | | | | | | | | / | + +------+--------+ +--------+--------+--------+ | Screw Brigade 5.5x25mm - | | | NUVASIVE - | | | 393595 | | [id number]: Qty: 2 on | | | NVSV | | | 5 / | | 03/29/2014 by Silviano Cabrera, | | | | | | | | MD | | | | | | | + +------+--------+ +--------+--------+--------+ | Screw Brigade 5.5x30mm - | | | NUVASIVE - | | | 943436 | | [id number]: Qty: 4 on | | | NVSV | | | 0 / / | | 03/29/2014 by Silviano Cabrera, | | | | | | | | MD | | | | | | | + +------+--------+ +--------+--------+--------+ | Cage Arnaldo Alifidel Allograft | | | NUVASIVE - | | 07/14/ | 551028 | | [id number] - | | | NVSV | | 2012 | / / | | [id number]: Qty: 1 on | | | | | | | | 03/29/2014 by Silviano Cabrera, | | | | | | | | MD | | | | | | | + +------+--------+ +--------+--------+--------+ | Screw Brigade 5.5x35mm - | | | NUVASIVE - | | | 608639 | | [id number]: Qty: 2 on | | | NVSV | | | / | | 03/29/2014 by Silviano Cabrera, | | | | | | | | MD | | | | | | | + +------+--------+ +--------+--------+--------+ | Allograft Block Extra Large | | N/A: | NUVASIVE - | | 09/27/ | [id number] | | Formagraft Large - | | Back | NVSV | | 2018 | 5 / | | [id number]: Qty: 1 on | | | | | | /FG-14 | | 03/29/2014 by Silviano Cabrera, | | | | | | 13 | | MD | | | | | | | + +------+--------+ +--------+--------+--------+ | Graft Sponge Kit Bone Infuse | | N/A: | MEDTRONIC - | | 08/27/ | [id number] | | Large 8ml - | | Back | MEDT | | 2016 | 0 / | | [id number]: Qty: 1 on | | | | | | /M1112 | | 03/29/2014 by Silviano Cabrera, | | | | | | 06AAY | | | | | | | | | + +------+--------+ +--------+--------+--------+ | Allograft Freeze Dried | | N/A: | LIFENET | | 11/13/ | [id number] | | Demineralized Cancellous Mix | | Spine | HEALTH - | | 2016 | T | | Ic Graft Chamber 15cc - | | Lumbar | LIFN | | | /74955 | | [id number]: Qty: | | | | | | 57-303 | | 1 on 03/31/2014 by Rick, | | | | | | 1 / | | MD Silviano | | | | | | | + +------+--------+ +--------+--------+--------+ | Graft Sponge Kit Bone Infuse | | N/A: | MEDTRONIC - | | 04/01/ | [id number] | | Medium 56ml - | | Spine | MEDT | | 2015 | 0 | | [id number]: Qty: 1 | | Lumbar | | | | /[id number] | | on 03/31/2014 by Rick, | | | | | | 05AAW | | MD Silviano | | | | | | / | + +------+--------+ +--------+--------+--------+ | Allograft Freeze Dried | | N/A: | LIFENET | | 11/01/ | [id number] | | Demineralized Cancellous Mix | | Spine | HEALTH - | | 2016 | T | | Ic Graft Chamber 15cc - | | Lumbar | LIFN | | | /68982 | | [id number]: Qty: | | | | | | 37-301 | | 1 on 03/31/2014 by Rick, | | | | | | 1 / | | MD Silviano | | | | | | | + +------+--------+ +--------+--------+--------+ | Screw Precept Shank Mod | | N/A: | NUVASIVE - | | | [id number] | | 7.5x50mm - [id number]: | | Spine | NVSV | | | 0 / / | | Qty: 4 on 03/31/2014 by | | Lumbar | | | | | | Silviano Cabrera MD | | | | | | | + +------+--------+ +--------+--------+--------+ | Screw Precept Shank Mod | | N/A: | NUVASIVE - | | | [id number] | | 6.5x50mm - [id number]: | | Spine | NVSV | | | 0 / / | | Qty: 2 on 03/31/2014 by | | Lumbar | | | | | | Silviano Cabrera MD | | | | | | | + +------+--------+ +--------+--------+--------+ | Screw Locking For 6.25mm Srini | | N/A: | NUVASIVE - | | | [id number] | | - [id number]: Qty: 6 | | Spine | NVSV | | | 1 / / | | on 03/31/2014 by Rick, | | Lumbar | | | | | | MD Silviano | | | | | | | + +------+--------+ +--------+--------+--------+ | Screw Tulip For 6.25mm Srini - | | N/A: | NUVASIVE - | | | 748283 | | [id number]: Qty: 6 on | | Spine | NVSV | | | 2 / / | | 03/31/2014 by Silviano Cabrera, | | Lumbar | | | | | | | | | | | | | + +------+--------+ +--------+--------+--------+ | Allograft Freeze Dried | | N/A: | LIFENET | | 11/08/ | [id number] | | Demineralized Cancellous Mix | | Spine | HEALTH - | | 2016 | T | | Ic Graft Chamber 15cc - | | Lumbar | LIFN | | | /23602 | | [id number]: Qty: | | | | | | 98-303 | | 1 on 03/31/2014 by Rick, | | | | | | 9 / | | MD Silviano | | | | | | | + +------+--------+ +--------+--------+--------+ | Allograft Freeze Dried | | N/A: | LIFENET | | 08/16/ | [id number] | | Demineralized Cancellous Mix | | Spine | HEALTH - | | 2016 | T | | Ic Graft Chamber 10cc - | | Lumbar | LIFN | | | /95259 | | [id number]: Qty: | | | | | | 22-301 | | 1 on 03/31/2014 by Rick, | | | | | | 3 / | | MD Silviano | | | | | | | + +------+--------+ +--------+--------+--------+ | Allograft Freeze Dried | | N/A: | LIFENET | | 07/13/ | [id number] | | Demineralized Cancellous Mix | | Spine | HEALTH - | | 2017 | T | | Ic Graft Chamber 5cc - | | Lumbar | LIFN | | | /54114 | | [id number]: Qty: | | | | | | 40-301 | | 1 on 03/31/2014 by Rick, | | | | | | 1 / | | MD Silviano | | | | | | | + +------+--------+ +--------+--------+--------+ | Srini Spherx Dual Ball Ti Dbr | | N/A: | NUVASIVE - | | | [id number] | | Ii 42.5mm - | | Spine | NVSV | | | 5 / / | | [id number]: Qty: 2 on | | Lumbar | | | | | | 03/31/2014 by Silviano Cabrera, | | | | | | | | | | | | | | | + +------+--------+ +--------+--------+--------+ | Port Imp Mri Powerport 8fr - | | | BARD ACCESS | | 03/20/ | [id number] | | [id number]: Qty: 1 on | | | SYSTEMS - | | 2015 | 0 / | | 07/28/2014 by , | | | ELLEN | | | /[id number] | | Chalino Gu MD, FACS at [facility] | | | | | | 003 | | [facility] | | | | | | | | CENTER | | | | | | | + +------+--------+ +--------+--------+--------+ | Mini TightropeImplanted: Qty: | | Right: | ARTHREX | | 11/18/ | [id number] | | 1 on 03/20/2015 by Randy, | | Hand | ARTHREX | | 2020 | 9DS / | | Giuliano Briones MD at [facility] | | | /[id number] | | [facility] | | | | | | [address] [...] REFERENCE | | | | performed at [facility];[address] | | LAB | | | | [place] | | [facility] | | | | [address];[place] [address] | | LABORATORY | | + + + + + + + + | Specimen | + + | Blood | + + + + + + + | Performing | Address | City/State/Zipcode | Phone Number | | Organization | | | | + + + + + | REFERENCE LAB | [address] [place] [address] | [place] [address] | [phone] | | [facility] | Blvd[address] | | | | LABORATORY | | | | + + + + + | REFERENCE LAB | [address] [place] [address] | [place] [address] | | | [facility] | Blvd[address] | [...] LAB | | | | performed at [facility];[address] | | [facility] | | | | [place] | | LABORATORY | | | | [address];[place] [address] | | | | | | | | | | + + + + + + + + | Specimen | + + | Blood | + + + + + + + | Performing | Address | City/State/Zipcode | Phone Number | | Organization | | | | + + + + + | REFERENCE LAB | [address] [place] [address] | [place] [address] | [phone] | | [facility] | Blvd. | | | | LABORATORY | | | | + + + + + | REFERENCE LAB | [address] [place] [address] | [place] [address] | | | [facility] | Bl[address]. | [...] REFERENCE | | | | performed at [facility];[address] | | LAB | | | | [place] | | [facility] | | | | [address];[place] [address] | | LABORATORY | | + + + + + + + + | Specimen | + + | Blood | + + + + + + + | Performing | Address | City/State/Zipcode | Phone Number | | Organization | | | | + + + + + | REFERENCE LAB | [address] | [place] [address] | [phone] | | [facility] | Blvd[address] | | | | LABORATORY | | | | + + + + + | REFERENCE LAB | [address] | [place] [address] | | | [facility] | Bl[address] | [...] | | | | | performed at [facility];[address] | | | | | | [facility] | | | | | | Blvd;[place] [address] | | | | | | | | | | + + + + + + + + | Specimen | + + | Blood | + + + + + + + | Performing | Address | City/State/Zipcode | Phone Number | | Organization | | | | + + + + + | REFERENCE LAB | [address] | [place] [address] | [phone] | | [facility] | Blvd[address] | | | | LABORATORY | | | | + + + + + | REFERENCE LAB | [address] | [place] [address] | | | [facility] | Bl[address] | [...] | [employer] | MODA | [id number] | 06/01/19 | | | Medica | | | HEALTH | | 17-Pre | | | re | | | MDCR | | sent | | | | + +--------+ +--------+ +---------+--------+ | [employer] | [employer] | [id number] | 06/01/19 | | | Medica | | | HEALTH | | 17-12/ | | | re | | | MDCR | | 31/201 | | | | | | | | 9 | | | | + +--------+ +--------+ +---------+--------+ | [employer] | MODA | [id number] | | [phone] | | Medica | | MEDICAID HMO | HEALTH | | 012-Pr | 1 | | id | | | MDCD | | esent | | | | | | [place]MO [place] | | | | | | + +--------+ +--------+ +---------+--------+ | [employer] | MODA | [id number] | | [phone] | | Medica | | MEDICAID HMO [...] Mary | al/Fam | | 1945 | [phone] | [place], [place] | | | jana | | | 1 (Home) | [address] | + +--------+ +--------+ + + | Thea Carmona | Person | Self | [birth year] | [address] | | Mary | al/Fam | | 1945 | [phone] | [place], [place] | | | jana | | | 1 (Home) | [address] | + +--------+ +--------+ + + Advance Directives + + + + + | Type | Date Recorded | Patient | Explanation | | | | Road Mender | | + + + + + | Power of | | | | | Business Services Clerk | | | | + + + [...]
--- OUTSIDE RECORDS SUMMARY | ~2019-05-05 | XMS | Encounter Summary ---
Demographics + + + | Address | [address] | | | [place] [address] | + + + | Home Phone [...] [place] | | | | | [address] | | + + + + + Care Team Providers + +------+ + | Care Flash Ranging Crewmember Name | Role | Phone | + +------+ + | aDvis Ivan MD | PCP | | + [...] | | Pulmonary | [place], | [address] | | | | | nodule | Ayana B, | [place], | | | | | Procedures | MD [address] | [place] [address] | | | | | CT Chest wo | [address] | Phone: | | | | | Contrast | [place], | [phone] | | | | | | [place] [address] | Fax: | | | | | | | [phone] | +--------+--------+ + + + + Encounter Details +--------+ + + + + | Date | Type | Department | Care Team | Description | +--------+ + + + + | 06/09/ | Hospital | [facility] | [place], | Pulmonary nodule | | 2013 | Encounter | MED CTR XRAY [address] | Ayana Looney MD | | | | | [address] | | | | | | [place] [address] | | | | | | [phone] | | | +--------+ + + + [...] | 2018 | Visit | | [address]I [address] | | | | | | [facility] | | | | | | [place] [address] | | | | | | [phone] | | | | | | | | +--------+ + + + + | 06/08/ | Office | Physical Medicine | Rocky Santos, | | | 2019 | Visit | and Rehabilitation | MD Nichole [address] | | | | | | [place] | | | | | | [address] | | | | | | | | +--------+ + + + + | 06/16/ | Appointment | Pulmonology | Eveline Jaffe | | | 2019 | | | MD Nichole [address] | | | | | | [address] [place] | | | | | | [place], [place] [address] | | | | | | [phone] | | | | | | | | +--------+ + + + + | 06/16/ | Office | Pulmonology | Eveline Jaffe | | | 2019 | Visit | | MD Nichole Carter | | | | | | [address] [place] | | | | | | [place] [address] | | | | | | [phone] | | | | | | | | +--------+ + + + + | 08/24/ | Office | Cardiology | Anisha Lopez DO | | 2019 | Visit | | [address] | | | | | | [place] | | | | | | [address] | | | | | | | [...] At | + + + | [facility] Diagnostic Imaging | [place] | | Department [address] [facility] | [facility] | | [ rep ct [address]] [ rep ct [facility] | | st zip] Signed | - IMAGING | | | | | Patient Name: THEA CARMONA Physician: | | | KATIEJanet : 1945 Age: 68 Sex: F Unit #: [id number] | | | Exam Date: 06/09/13 [place] [facility] [place] | | Report #: [id number] Page: | | | %(RAD)RES..mtdd.print.filter("pg") of %(RAD) | | | RES..mtdd.print.filter("tpg") | | | | | | Accession Number: [id number] | | | CT CHEST WITHOUT CONTRAST, 06/09/2013 CLINICAL HISTORY: | | | FOLLOWUP NODULE IN THE SUPERIOR SEGMENT OF THE RIGHT LOWER LOBE. | | | TECHNIQUE: Axial images were obtained from thoracic inlet to | | | upper abdomen without the use of contrast. | | | COMPARISON: 01/28/2013 scan from [facility]. FINDINGS: A | | | partially cavitary [...] Transcribed Date/Time: 06/09/2013 16:14 | | | Ground Intelligence Officer: <<Signature on File>> | | | | | | Jose Elias Leal MD06/09/13 1702 <Electronically signed by | | | Jose Elias Leal MD> Jose Elias Leal MD 06/09/13 | | | 1545 Ground Intelligence Officer: BrightWhistle Nfkfpzzlnezpx20/09/14 4564 | | | Ayana Taylor MD | | + + + + + + + + | Performing | Address | City/State/Zipcode | Phone Number | | Organization | | | | + + + + + | [facility] | [address] | [place], [place] | [phone] | | [facility] | | [address] | | | - IMAGING | | | | + + + + + XR Cervical Spine 3 Vws or Less (06/09/2013 2:42 PM PST) + + | Specimen | + + | | + + + + + | Narrative | Performed At | + + + | [facility] Diagnostic Imaging | [place] | | Department [address] [place] [address] [place] | [facility] | | [ rep ct [address]] [ rep ct [facility] | | st zip] Signed | - IMAGING | | | | | Patient Name: THEA CARMONA Physician: | | | 20 : 1945 Age: 68 Sex: F Unit #: [id number] | | | Exam Date: 06/09/13 [place] [facility] [place] | | Report #: [id number] Page: | | | %(RAD)RES..mtdd.print.filter("pg") of %(RAD) | | | RES..mtdd.print.filter("tpg") | | | | | | Accession Number: [id number] | | | CERVICAL SPINE CLINICAL HISTORY: [...] Transcribed | | | Date/Time: 06/09/2013 15:09 Ground Intelligence Officer: | | | <<Signature on File>> | | | Ronak | | | Abilio Heath MD06/10/13 1057 <Electronically signed by Ronak Knox | | | Kumar HESS> Ronak Heath MD 06/09/13 1442 | | | Ground Intelligence Officer: [employer]istle Wrrurqmvelvky10/09/14 1509 | | | Silviano Cabrera Jr, MD | | + + + + + + + + | Performing | Address | City/State/Zipcode | Phone Number | | Organization | | | | + + + + + | [facility] | [address] | [place] | [phone] | | [facility] | | [address] | | | - IMAGING | | | | + + + + + documented in this encounter Visit Diagnoses + + | Diagnosis | + + | Pulmonary nodule Solitary pulmonary nodule | + + documented in this encounter
--- OUTSIDE RECORDS SUMMARY | ~2019-05-05 | XMS | Encounter Summary ---
Demographics + + + | Address | [address] | | | [place] [address] | + + + | Home Phone [...] [place] | | | | | [address] | | + + + + + Care Team Providers + +------+ + | Care Printer'S Assistant Name | Role | Phone | + +------+ + | Davis Ivan MD | PCP | | + +------+ + Encounter Details +--------+ + + + + | Date | Type | Department | Care Team | Description | +--------+ + + + + | 02/01/ | Hospital | [facility] | Conversion | Pain | | 2014 | Encounter | CONVERSION DEP [address] | Transaction, | | | | | [address] | Provider Unknown | | | | | [place] | [phone] | | | | | [address] | | | | | | [phone] | | | +--------+ + + + [...] | | | | | [place] [address] | | | | | | [phone] | | | | | | | | +--------+ + + + + | 06/08/ | Office | Physical Medicine | Rocky Santos, | | | 2019 | Visit | and Rehabilitation | MD Nichole Landis | | | | | | [place] | | | | | | [id number] | | | | | | | | +--------+ + + + + | 06/16/ | Appointment | Pulmonology | Eveline Jaffe | | 2019 | | | MD Nichole Carter W | | | | | | [address] | | | | | | [place] [address] | | | | | | [phone] | | | | | | | | +--------+ + + + + | 06/16/ | Office | Pulmonology | Eveline Jaffe | | | 2019 | Visit | | MD Raul [address] | | | | | [address] | | | | | | [place] [address] | | | | | | [phone] | | | | | | | | +--------+ + + + + | 08/24/ | Office | Cardiology | Anisha Lopez DO | | | 2019 | Visit | | [address] | | | | | | [place] | | | | | | [address] | | | | | | | [...]
--- OUTSIDE RECORDS SUMMARY | ~2019-05-05 | XMS | Encounter Summary ---
Demographics + + + | Address | [address] | | | [place] [address] | + + + | Home Phone [...] [place] | | | | | [address] | | + + + + + Care Team Providers + +------+ + | Care Nursing Manager Name | Role | Phone | [...] + + | 09/07/ | Office | [facility] | Offenstein, | Cough (Primary Dx); | | 2014 | Visit | PULMONARY [address] | Ayana Looney MD | Leg edema, left; | | | | [place], | | COPD (chronic | | | | [place] [address] | | obstructive | | | | [phone] | | pulmonary disease); | | | [...] eating. Have upper GI test done at [facility] to see if you are refluxing. Stay [...] has a slight temperature yesterday when the [facility] nurse came by, she thinks in [...] COPD (chronic obstructive pulmonary disease) ([facility]) on albuterol Spondylolisthesis of cervical region Spinal stenosis has tried cortisone injections Osteoporosis Depression Pneumonia 2009 hospitalized 5 days Rheumatoid arthritis(714.0) ([facility]) on prednisone and methotrexate, Dr. Lewis [place] Hyperlipidemia on simvastatin Hypertension on clonidine and lisinopril Hypothyroidism GERD (gastroesophageal reflux disease) Stroke ([facility]) 2006 Stroke ([facility]) 2007 Squamous cell carcinoma of lung ([facility]) 07/2013 right lower lobe Sputum culture positive for Scopulariopsis species Recurrent squamous cell carcinoma of lung ([facility]) 07/11/[address] and [...] EBUS with right hilar LN biopsy, [facility] Dr. 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 Respiratory Therapy Supplies [facility] [employer] S9 auto CPAP 5-9 cm H2O. Heater [...] kg (152 lb 3.2 oz) | B [place] 27.83 kg/m2 | SpO2 95% RA General [...] made to ensure accuracy; however, inadvertent computerized carrier associate errors may be pre sent. documented [...] | | | | | [place] [address] | | | | | | [phone] | | | | | | | | +--------+ + + + + | 06/08/ | Office | Physical Medicine | Rocky Santos, | | | 2019 | Visit | and Rehabilitation | MD [address] | | | | | | [place] | | | | | | [address] | | | | | | | | +--------+ + + + + | 06/16/ | Appointment | Pulmonology | Eveline Jaffe | | 2019 | | | MD Nichole [address] | | | | | | [place] | | | | | | [place] [address] | | | | | | [phone] | | | | | | | | +--------+ + + + + | 06/16/ | Office | Pulmonology | Ld Eveline | | | 2019 | Visit | | MD Raul [address] | | | | | | [place] | | | | | | [place] [address] | | | | | | [phone] | | | | | | | | +--------+ + + + + | 08/24/ | Office | Cardiology | Anisha Lopez DO | | | 2019 | Visit | | [address] | | | | | | [place] | | | | | | [address] | | | | | | | [...] | Claudia's nurse 1604 p.m. by the remote recruiter. Dictated and | | | Signed by: [...] pt | | withrecurrent lung cancer.COMPARISON: None.PROTOCOL: Candelarai scale and Doppler images of | | the left lower extremity veins.FINDINGS:The left common femoral, greater saphenous, | | profunda femoral, superficialfemoral, and popliteal veins demonstrate normal flow, | | augmentation, andcompression.Incidental evaluation of the right common femoral vein | | demonstrates normal flow.IMPRESSION -No evidence for DVT.A preliminary report was called | | to Dr. Ayana Taylor's nurse 1604 p.m. bythe remote recruiter.Dictated and Signed by: | | Matheus Kapadia [...] Taylor's nurse 1604 p.m. by | |the remote recruiter. | | | |Dictated and Signed by: Matheus Kapadia MD | | Electronically signed: 09/07/2014 4:43 PM | + + + + + + + | Performing | Address | City/State/Zipcode | Phone Number | | Organization | | | | + + + + + | [facility] | [address] | [place] | [phone] | | [facility] | | [address] | | | - IMAGING | | [...]
--- OUTSIDE RECORDS SUMMARY | ~2019-05-05 | XMS | Encounter Summary ---
Demographics + + + | Address | [address] | | | [place] [address] | + + + | Home Phone [...] [place] | | | | | [address] | | + + + + + Care Team Providers + +------+ + | Care Electronic Systems Security Assessment Name | Role | Phone | + [...] Malignant | MD Adelita | [address] | | | | | neoplasm of | [address] | [place], | | | | | main | [address] | [place] | | | | | bronchus, | [place], | [address] | | | | | right (HCC) | [place] | Phone: | | | | | Procedures | [address] | [phone] | | | | | MRI Brain w | Phone: | Fax: | | | | | wo Contrast | [phone] | [phone] | | | | | | Fax: | | | | | | | [phone] | | +--------+--------+ + + + + Encounter Details +--------+ + + + + | Date | Type | Department | Care Team | Description | +--------+ + + + + | 08/30/ | Orders Only | [facility] | Adelita Lu MD | Malignant neoplasm | | 2014 | | [facility] | [address] | of main bronchus, | | | | [facility] [address] | [place], [place] | right (HCC) (Primary | | | | [address] [place] | [address] | Dx) | | | | [place] [address] | [phone] | | | | | [phone] | | | +--------+ + + + [...] | | 2018 | Visit | | [facility] [address] | | | | | | [place] | | | | | | [place] [address] | | | | | | [phone] | | | | | | | | +--------+ + + + + | 06/08/ | Office | Physical Medicine | Rocky Santos, | | | 2019 | Visit | and Rehabilitation | MD Nichole Zapata | | | | | | [place] | | | | | | [address] | | | | | | | | +--------+ + + + + | 06/16/ | Appointment | Pulmonology | Eveline Jaffe | | 2019 | | | MD [address]ole [address] | | | | | | [address] [place] | | | | | | [place] [address] | | | | | | [phone] | | | | | | | | +--------+ + + + + | 06/16/ | Office | Pulmonology | Eveline Jaffe | | | 2019 | Visit | | MD Nichole Carter W | | | | | | [address] [place] | | | | | | [place] [address] | | | | | | [phone] | | | | | | | | +--------+ + + + + | 08/24/ | Office | Cardiology | Anisha Lopez DO | | | 2019 | Visit | | [address] | | | | | | [place] | | | | | | [address] | | | | | | | | +--------+ + + + + documented as of this encounter Results MRI Brain w wo Contrast (09/02/2013 12:02 [...] + | MISCELLANEOUS LAB | | | [phone] | + +---------+ + + | MISCELANIOUS LAB | | | [phone] | + +---------+ + + documented in this encounter Visit Diagnoses + + | Diagnosis | + + | Malignant neoplasm of main bronchus, right (HCC) - Primary | + + documented in this encounter"
--- OUTSIDE RECORDS SUMMARY | ~2019-05-05 | XMS | Encounter Summary ---
Demographics + + + | Address | [address] | | | [place] [address] | + + + | Home Phone [...] [place] | | | | | [address] | | + + + + + Care Team Providers + +------+ + | Care Lead Cargo Mover Name | Role | Phone | + +------+ + | Davis Ivan MD | PCP | | + +------+ + Encounter Details +--------+ + + + + | Date | Type | Department | Care Team | Description | +--------+ + + + + | 11/01/ | Hospital | [facility] | Rodney Worthy | Left shoulder pain, | | 2019 | Encounter | [facility] | MD Mat[address] | unspecified | | | | [address] [place] | [address] [place] | chronicity; Right | | | | [place] | [place] [address] | shoulder pain, | | | | [address] | [phone] | unspecified | | | | [phone] | | chronicity; | | | | [...] | | | | | [place] [address] | | | | | | [phone] | | | | | | | | +--------+ + + + + | 06/08/ | Office | Physical Medicine | Rocky Santos, | | | 2019 | Visit | and Rehabilitation | MD Nichole Landis | | | | | | [place] | | | | | | [address] | | | | | | | | +--------+ + + + + | 06/16/ | Appointment | Pulmonology | Eveline Jaffe | | 2019 | | | MD Nichole Carter [address] | | | | | | [address] | | | | | | [place] [address] | | | | | | [phone] | | | | | | | | +--------+ + + + + | 06/16/ | Office | Pulmonology | Eveline Jaffe | | | 2019 | Visit | | MD Raul [address] | | | | | | [address] [place] | | | | | | [place] [address] | | | | | | [phone] | | | | | | | | +--------+ + + + + | 08/24/ | Office | Cardiology | Anisha Lopez DO | | | 2019 | Visit | | [address] | | | | | | [place] | | | | | | [address] | | | | | | | [...] + + | Performing | Address | City/State[facility] | Phone Number | | Organization [...]
--- OUTSIDE RECORDS SUMMARY | ~2019-05-05 | XMS | Encounter Summary ---
Demographics + + + | Address | [address] | | | [place] [address] | + + + | Home Phone [...] [place] | | | | | [address] | | + + + + + Care Team Providers + +------+ + | Care Engine Buildup Mechanic Name | Role | Phone | + +------+ + | Davis Ivan MD | PCP | | + +------+ + Encounter Details +--------+ + + + + | Date | Type | Department | Care Team | Description | +--------+ + + + + | 10/11/ | Hospital | [facility] | Adelita Lu MD | Pulmonary nodules; | | 2014 | Encounter | MED CTR CHEMO | [address] | Recurrent squamous | | | | INFUSION [address] | [place], [place] | cell carcinoma of | | | | [place], | [address] | lung, right (HCC); | | | | [place] [address] | [phone] | Malignant neoplasm | | | | [phone] | | of lower lobe of | [...] 2 | 08/22/19 | | | (INOCENCIO EDLUNA) | mouth 3 times daily | capsule [...] | | | | | [place] [address] | | | | | | [phone] | | | | | | | | +--------+ + + + + | 06/08/ | Office | Physical Medicine | Rocky Santos, | | | 2019 | Visit | and Rehabilitation | MD Nichole Landis | | | | | | [place] | | | | | | [address] | | | | | | | | +--------+ + + + + | 06/16/ | Appointment | Pulmonology | Eveline Jaffe | | 2019 | | | MD [address]ole Carter [address] | | | | | | [address] [place] | | | | | | [place] [address] | | | | | | [phone] | | | | | | | | +--------+ + + + + | 06/16/ | Office | Pulmonology | Eveline Jaffe | | | 2019 | Visit | | MD Raul [address] | | | | | | [place] | | | | | | [place] [address] | | | | | | [phone] | | | | | | | | +--------+ + + + + | 08/24/ | Office | Cardiology | Anisha Lopez DO | | | 2019 | Visit | | [address] | | | | | | [place] | | | | | | [address] | | | | | | | [...] mL/min/1.73m2 | [facility] | | | [place] | | | MEDICAL | | | [...] [address] | [place] | [phone] | | [facility] | | [address] | | | - LABORATORY | | [...] [address] | [place] | [phone] | | [facility] | | [address] | | | - LABORATORY | | [...] mL/min/1.73m2 | [facility] | | | [place] | RATE,ESTIMATED | | MEDICAL | | | | mL/min/1.50g5Vnmn than | | CENTER - | | [...] ST. | [address] | [place], [place] | [phone] | | [facility] | | [address] | | | - LABORATORY | | [...] [address] | [place] | [phone] | | [facility] | | [address] | | | - LABORATORY | | [...]
--- OUTSIDE RECORDS SUMMARY | ~2019-05-05 | XMS | Encounter Summary ---
Demographics + + + | Address | [address] | | | [place] [address] | + + + | Home Phone [...] [place] | | | | | [address] | | + + + + + Care Team Providers + +------+ + | Care Merchandise Presentation Manager Name | Role | Phone | [...] + + | 09/08/ | Office | [facility] | [place], | MARCE (obstructive | | 2013 | Visit | PULMONARY [address] | Ayana Looney MD | sleep apnea) | | | | [place], | | (Primary Dx); COPD | | | | [place] [address] | | (chronic obstructive | | | | [phone] | | pulmonary disease) | +--------+---------+ + [...] CPAP machine yesterday. She had called the [employer], and mio forrester told her they would [...] Pneumonia 2009 hospitalized 5 days Rheumatoid arthritis(714.0) ([facility]) on prednisone and methotrexate, Dr. Lewis, [place] Hyperlipidemia on simvastatin Hypertension on clonidine and lisinopril Hypothyroidism GERD (gastroesophageal reflux disease) Stroke ([facility]) 2006 Stroke ([facility]) 2008 Squamous cell carcinoma of lung ([facility]) 07/2013 MARCE (obstructive sleep apnea) AHI [...] mg by mouth Daily. Respiratory Therapy Supplies [facility] [employer] S9 auto CPAP 5-9 cm H2O. [...] too tightly. She will work with the [facility] to adjust this or get a new [...] HOSPITAL | | | | | | [place] [address] | | | | | | [phone] | | | | | | | | +--------+ + + + + | 06/08/ | Office | Physical Medicine | Rocky Santos, | | 2019 | Visit | and Rehabilitation | [address] | | | | | | [place] | | | | | | [address] | | | | | | | | +--------+ + + + + | 06/16/ | Appointment | Pulmonology | Eveline Jaffe | | | 2019 | | | MD Nichole Carter | | | | | | [address] [place] | | | | | | [place] [address] | | | | | | [phone] | | | | | | | | +--------+ + + + + | 06/16/ | Office | Pulmonology | Eveline Jaffe | | | 2019 | Visit | | MD Nichole Carter [address] | | | | | | [address] [place] | | | | | | [place] [address] | | | | | | [phone] | | | | | | | | +--------+ + + + + | 08/24/ | Office | Cardiology | Anisha Lopez DO | | | 2019 | Visit | | [address] | | | | | | [place] | | | | | | [address] | | | | | | | [...]
--- OUTSIDE RECORDS SUMMARY | ~2019-05-05 | XMS | Encounter Summary ---
Demographics + + + | Address | [address] | | | [place] [address] | + + + | Home Phone [...] [place] | | | | | [address] | | + + + + + Care Team Providers + +------+ + | Care Mixer Operator Raw Salt Name | Role | Phone | + [...] + + | 05/02/ | Office | [facility] | Giuliano Padilla, | Postop check | | 2014 | Visit | ORTHOPEDIC SURGERY | MD Germania BARON | (Primary Dx) | | | | [address] [facility] | [place] | | | | | [place] | [address] | | | | | [address] | | | | | | [phone] | | | +--------+---------+ + + + [...] | 2018 | Visit | | [address] | | | | | | [facility] | | | | | | [place] [address] | | | | | | [phone] | | | | | | | | +--------+ + + + + | 06/08/ | Office | Physical Medicine | Rocky Santos, | | | 2019 | Visit | and Rehabilitation | MD Nichole Landis | | | | | | [place] | | | | | | [address] | | | | | | | | +--------+ + + + + | 06/16/ | Appointment | Pulmonology | Eveline Jaffe | | | 2019 | | | MD Nichole Carter | | | | | | [address] | | | | | | [place] [address] | | | | | | [phone] | | | | | | | | +--------+ + + + + | 06/16/ | Office | Pulmonology | Eveline Jaffe | | 2019 | Visit | | Sherrin, MD [address] | | | | | | [address] | | | | | | [place] [address] | | | | | | [phone] | | | | | | | | +--------+ + + + + | 08/24/ | Office | Cardiology | Anisha Lopez DO | | | 2019 | Visit | | [address] | | | | | | [place] | | | | | | [address] | | | | | | | | +--------+ + + + + documented as of this encounter Visit Diagnoses + + | Diagnosis | + + | Postop check - Primary Follow-up examination, following unspecified surgery | + + documented in this encounter
--- OUTSIDE RECORDS SUMMARY | ~2019-05-05 | XMS | Encounter Summary ---
Demographics + + + | Address | [address] | | | [place] [address] | + + + | Home Phone [...] [place] | | | | | [address] | | + + + + + Care Team Providers + +------+ + | Care Indian Blanket Weaver Name | Role | Phone | + [...] + + | 04/13/ | Office | [facility] [place] | Claudai, | Pulmonary nodule | | 2012 | Visit | PULMONARY [address] | Ayana Looney MD | (Primary Dx) | | | | [place], | | | | | | [place] [address] | | | | | | [phone] | | | +--------+---------+ + + + [...] MD [place] Pulmonary and Critical Care [facility] [address] [place], [address] HPI Thea Carmona is a 67 y.o. [...] arthritis on prednisone and methotrexate, Dr. 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 documented in [...] | | | | | [place] [address] | | | | | | [phone] | | | | | | | | +--------+ + + + + | 06/08/ | Office | Physical Medicine | Rocyk Santos, | | | 2019 | Visit | and Rehabilitation | MD Nichole Landis | | | | | | [place] | | | | | | [address] | | | | | | | | +--------+ + + + + | 06/16/ | Appointment | Pulmonology | Eveline Jaffe | | 2019 | | | MD [address]ole [address] | | | | | | [place] | | | | | | [place] [address] | | | | | | [phone] | | | | | | | | +--------+ + + + + | 06/16/ | Office | Pulmonology | Eveline Jaffe | | | 2019 | Visit | | MD Raul [address] | | | | | | [place] | | | | | | [place] [address] | | | | | | [phone] | | | | | | | | +--------+ + + + + | 08/24/ | Office | Cardiology | Anisha Lopez DO | | | 2019 | Visit | | [address] | | | | | | [place] | | | | | | [address] | | | | | | | | +--------+ + + + + documented as of this encounter Results XR Chest PA and Lateral (04/13/2013 3:30 PM PST) + + | Specimen | + + | | + + + + + | Narrative | Performed At | + + + | [facility] | [facility] | | Department [address] [place] [address] | [facility] | | [ rep [address]] [ rep [facility] | | [facility]] Signed | - IMAGING | | | | | Patient Name: THEA CARMONA Colette Physician: | | | OFFE. : 1945 Age: 67 Sex: F Unit #: [id number] | | | Exam Date: 04/13/13 Location: LAB | | | Report #: [id number] Page: | | | %(RAD)RES..mtdd.print.filter("pg") of %(RAD) | | | RES..mtdd.print.filter("tpg") | | | | | | Accession Number: [id number] | | | CHEST, PA AND LATERAL, [...] | | | Transcribed Date/Time: 04/13/2013 17:08 Vinyl Cutter: | | | <<Signature on File>> | | | Matheus | | | MD Kang04/13/13 5420 <Electronically signed by Matheus Kapadia MD> | | | Matheus Kapadia MD 04/13/13 1311 Vinyl Cutter: Jesica | | | [id number]/13/13 4891 Ayana Taylor MD | | | | | + + + + + + + + | Performing | Address | City/State/Zipcode | Phone Number | | Organization | | | | + + + + + | [facility] | [address] | [place] | [phone] | | [facility] | | [address] | | | - IMAGING | | [...] | | | | | | [facility] | | | | | | MEDICAL [...] (L) | 3.2 - 5.0 gm/dL | [facility] | | | | | | ST[facility]et [...] + | [facility] | [address] | [place], [place] | [phone] | | [facility] | | [address] | | | - LABORATORY | | | | + + + + + | [facility] | [address] | [place] | | | [facility] | | [address] | | | - LABORATORY | | | | + + + + + documented in this encounter Visit Diagnoses + + | Diagnosis | + + | Pulmonary nodule - Primary Solitary pulmonary nodule | + + documented in this encounter
--- OUTSIDE RECORDS SUMMARY | ~2019-05-05 | XMS | Encounter Summary ---
Demographics + + + | Address | [address] | | | [place] [address] | + + + | Home Phone [...] [place] | | | | | [address] | | + + + + + Care Team Providers + +------+ + | Care Biology Faculty Member Name | Role | Phone | [...] | | | [place] | | [place] [address] | | | | | finger, left | | Phone: | | | | | index | | [phone] | | | | | finger | | Fax: | | | | | Trigger | | [phone] | | | | | finger, left | | | | | | | middle | | | | | | | finger | | | | | | | Procedures | | | | | | | AR INCISE | | | | | | | FINGER | | | | | | | TENDON | | | | | | | SHEATH AR | | | | | | | INCISE | | | | | | | FINGER | | | | | | | TENDON | | | | | | | SHEATH AR | | | | | | | [...] + + | 12/14/ | Hospital | [facility] | Giuliano Padilla, | Trigger finger, left | | 2019 | Encounter | MED CTR OR INTRA OP | MD [address] | index finger; | | | | [address] | [place], [place] | Trigger finger, left | | | | [place], [place] | [address] | middle finger; | | | | [address] | | Trigger finger of | | | | [phone] | | left thumb; Trigger | | [...] | | | | | | type ([facility]) | | | | | [...] | | | | | | [place] [address] | | | | | | [phone] | | | | | | | | +--------+ + + + + | 06/08/ | Office | Physical Medicine | Rocky Santos, | | | 2019 | Visit | and Rehabilitation | MD [address] | | | | | | [place] | | | | | | [address] | | | | | | | | +--------+ + + + + | 06/16/ | Appointment | Pulmonology | Eveline Jaffe | | 2019 | | | MD Nichole [address] | | | | | | [address] [place] | | | | | | [place] [address] | | | | | | [phone] | | | | | | | | +--------+ + + + + | 06/16/ | Office | Pulmonology | Eveline Jaffe | | 2019 | Visit | | MD Raul [address] | | | | | | [address] | | | | | | [place] [address] | | | | | | [phone] | | | | | | | | +--------+ + + + + | 08/24/ | Office | Cardiology | Anisha Lopez DO | | | 2019 | Visit | | [address] | | | | | | [place] | | | | | | [address] | | | | | | | [...] [address] | [place] | [phone] | | [facility] | | [address] | | | - LABORATORY | | [...] | | [employer] Tube | | | [facility] | | | | | | [...] [address] | [place] | [phone] | | [facility] | | [address] | | | - LABORATORY | | [...] | | | | | Wheezing, Starting 12/14/18 at | | | | | [...]
--- OUTSIDE RECORDS SUMMARY | ~2019-05-05 | XMS | Encounter Summary ---
Demographics + + + | Address | [address] | | | [place] [address] | + + + | Home Phone [...] [place] | | | | | [address] | | + + + + + Care Team Providers + +------+ + | Care Hot Iron Worker Name | Role | Phone | [...] | Bilateral | Offenstein, | [address] | | | | | leg edema | Precious B, | [place], | | | | | Procedures | MD [address] | [place] | | | | | ECHO | [address] | [address] | | | | | Complete | [place], | Phone: | | | | | | [place] [address] | [phone] | | | | | | | Fax: | | | | | | | [phone] | +--------+--------+ + + + + Reason [...] | Bilateral | Offenstein, | [address] | | | | | leg edema | Precious Looney, | [place], | | | | | Procedures | MD [address] | [place] | | | | | ECHO | [address] | [address] | | | | | Complete | [place], | Phone: | | | | | | [place] [address] | [phone] | | | | | | | Fax: | | | | | | | [phone] | +--------+--------+ + + + + Encounter Details +--------+ + + + + | Date | Type | Department | Care Team | Description | +--------+ + + + + | 11/29/ | Hospital | [facility] | Offenstein, | Bilateral leg edema | | 2016 | Encounter | MED CTR ECHO [address] | Precious Looney MD | | | | | [address] [place] | Joe Ochoa, | | | | | [place] [address] | Technologist | | | | | [phone] | | | +--------+ + + + [...] | | | | | type (FORMERLY [facility]) | | | | | | + [...] | | | | | [place] [address] | | | | | | [phone] | | | | | | | | +--------+ + + + + | 06/08/ | Office | Physical Medicine | Rocky Santos, | | | 2019 | Visit | and Rehabilitation | MD [address] | | | | | | [place] | | | | | | [id number] | | | | | | | | +--------+ + + + + | 06/16/ | Appointment | Pulmonology | Eveline Jaffe | | 2019 | | | MD [address] | | | | | | [address] | | | | | | [place] [address] | | | | | | [phone] | | | | | | | | +--------+ + + + + | 06/16/ | Office | Pulmonology | Eveline Jaffe | | | 2019 | Visit | | MD Raul [address] | | | | | | [place] [address] | | | | | | [place] [address] | | | | | | [phone] | | | | | | | | +--------+ + + + + | 08/24/ | Office | Cardiology | Anisha Lopez DO | | | 2019 | Visit | | [address] | | | | | | [place] | | | | | | [address] | | | | | | | [...] Report (TTE) Demographics Patient Name GRISELDA | [facility] | | [facility] Room Number YOLANDA Patient | [facility] | | Number [id number] Date of Study 11/30/2015 | - IMAGING | | Visit Number [id number] | | | Referring Physician OUSMANE PRECIOUS Number | | | B Date of | | | 1945 [employer] HOLLEY JOE | | | | | | RDS Age 70 year(s) | | | Suzanne HAIDER | | | Personal Care Worker LUIS | | | | | | [...] Room Number YOLANDA | | Patient Number [id number] Date of Study 11/30/2015 Visit Number | | [id number] Referring Physician OUSMANE LANG | | Number B Date of 1945 | | [employer] HOLLEY MARTE | | RDS Age 70 year(s) Interpreting NOMAN HAIDER | | Personal Care Worker LUIS | | LUIS TINEO MD Gender [...] + | [facility] [facility] | [address] | [place] | [phone] | | [facility] | | [address] | | | - IMAGING | | [...]
--- OUTSIDE RECORDS SUMMARY | ~2019-05-05 | XMS | Encounter Summary ---
Demographics + + + | Address | [address] | | | [place] [address] | + + + | Home Phone [...] [place] | | | | | [address] | | + + + + + Care Team Providers + +------+ + | Care Batt Machine Operator Name | Role | Phone | + +------+ + | Caitlin Chino MD | PCP | | + +------+ + Encounter Details +--------+ + + + + | Date | Type | Department | Care Team | Description | +--------+ + + + + | 04/22/ | Hospital | [facility] | Rocky Santos, | Cervicalgia; History | | 2019 | Encounter | MED CTR XRAY [address] | MD [address] | of fusion of | | | | [place] | [place], [place] | cervical spine | | | | [place] [address] | [address] | | | | | [phone] | | | +--------+ + + + [...] | | | | | [place] [address] | | | | | | [phone] | | | | | | | | +--------+ + + + + | 06/08/ | Office | Physical Medicine | Rocky Santos, | | | 2019 | Visit | and Rehabilitation | [address] | | | | | | [place] | | | | | | [address] | | | | | | | | +--------+ + + + + | 06/16/ | Appointment | Pulmonology | Eveline Jaffe | | 2019 | | | MD Nichole Carter [address] | | | | | | [address] [place] | | | | | | [place] [address] | | | | | | [phone] | | | | | | | | +--------+ + + + + | 06/16/ | Office | Pulmonology | Eveline Jaffe | | | 2019 | Visit | | MD Nichole Carter W | | | | | | [address] [place] | | | | | | [place] [address] | | | | | | [phone] | | | | | | | | +--------+ + + + + | 08/24/ | Office | Cardiology | Anisha Lopez DO | | | 2019 | Visit | | [address] | | | | | | [place] | | | | | | [address] | | | | | | | [...]
--- OUTSIDE RECORDS SUMMARY | ~2019-05-05 | XMS | Encounter Summary ---
Demographics + + + | Address | [address] | | | [place] [address] | + + + | Home Phone [...] [place] | | | | | [address] | | + + + + + Care Team Providers + +------+ + | Care Tool Marker Name | Role | Phone | [...] | | | | pulmonary | [address] [facility] [address] | [address] | | | | | disease, | [address] | [place] | | | | | unspecified | [place], | [place] | | | | | ([facility]) | [place] | [address] Phone: | | | | | Procedures | [address] | [phone] | | | | | FU | Phone: | Fax: | | | | | | [phone] | [phone] | | | | | | Fax: | | | | | | | [phone] | | +--------+--------+ + + + + Encounter Details +--------+---------+ + + + | Date | Type | Department | Care Team | Description | +--------+---------+ + + + | 11/19/ | Office | [facility] | Gurmeet Vargas | Chronic obstructive | | 2018 | Visit | PULMONARY [address] | MD [address] | bronchitis (HCC) | | | | [place], | [place] | (Primary Dx); | | | | [place] [address] | [place] [address] | History of lung | | | | [phone] | [phone] | cancer; Chronic | | | | [...] stayed in the hospital [address] [facility] in [place] in June 2017, she says. After dave [...] She tells me she sees him at [facility], so it is not in our [...] | 2018 | Visit | | [address] | | | | | | [facility] | | | | | | [place] [address] | | | | | | [phone] | | | | | | | | +--------+ + + + + | 06/08/ | Office | Physical Medicine | Rocky Santos, | | | 2019 | Visit | and Rehabilitation | MD Nichole [address] | | | | | | [place] | | | | | | [address] | | | | | | | | +--------+ + + + + | 06/16/ | Appointment | Pulmonology | Eveline Jaffe | | 2019 | | | MD [address] | | | | | | [address] [place] | | | | | | [place] [address] | | | | | | [phone] | | | | | | | | +--------+ + + + + | 06/16/ | Office | Pulmonology | Eveline Jaffe | | 2019 | Visit | | MD [address] | | | | | | [address] [place] | | | | | | [place] [address] | | | | | | [phone] | | | | | | | | +--------+ + + + + | 08/24/ | Office | Cardiology | Anisha Lopez DO | | | 2019 | Visit | | [address] | | | | | | [place] | | | | | | [address] | | | | | | | [...]
--- OUTSIDE RECORDS SUMMARY | ~2019-05-05 | XMS | Encounter Summary ---
Demographics + + + | Address | [address] | | | [place] [address] | + + + | Home Phone [...] [place] | | | | | [address] | | + + + + + Care Team Providers + +------+ + | Care Timber Packer Name | Role | Phone | [...] [place] | | | | | [facility] [place] | [address] | | | | | [address] | | | | | | [phone] | | | +--------+ + + + [...] 2018 | Visit | | [address] | | | | | | [place] | | | | | | [place] [address] | | | | | | [phone] | | | | | | | | +--------+ + + + + | 06/08/ | Office | Physical Medicine | Rocky Santos, | | | 2019 | Visit | and Rehabilitation | MD [address] | | | | | | [place] | | | | | | [address] | | | | | | | | +--------+ + + + + | 06/16/ | Appointment | Pulmonology | Eveline Jaffe | | 2019 | | | MD [address] | | | | | | [address] | | | | | | [place] [address] | | | | | | [phone] | | | | | | | | +--------+ + + + + | 06/16/ | Office | Pulmonology | Eveline Jaffe | | | 2019 | Visit | | MD Raul [address] | | | | | | [address] [place] | | | | | | [place] [address] | | | | | | [phone] | | | | | | | | +--------+ + + + + | 08/24/ | Office | Cardiology | Anisha Lopez DO | | | 2019 | Visit | | [address] | | | | | | [place] | | | | | | [address] | | | | | | | [...] 0.75 m/s MV | | | Dec [place]: 2.82 m/s2 MV DecT: 228.26 ms MV E Hiren: 0.63 m/s | | | MV E/A Ratio: 0.84 E/E' Sept: 13.21 E' Lat: 0.05 m/s E' | | | Sept: 0.04 m/s RV S': 0.17 m/s Shotgun Shell Loading Machine Operator: Authenticated | | | by: Anisha Lopez MD Report Date/Time: -- 62_97-0-2933_0:37:26 | | + + + + + [...] (A-L): 20.30 ml/m2LAAs A2C: | | 13.00 [id number] A-L A2C: 33.39 mlLAESV MOD A2C: 31.06 mlLALs A2C: 4.29 cmLAAs A4C: | | 13.52 [id number] A-L A4C: 34.38 mlLAESV MOD A4C: 32.42 mlLALs A4C: 4.51 cmAV | | Env.Ti: 288.28 msAV maxP.87 mmHgAV meanP.93 mmHgAV Vmax: 1.64 m/Susan | | Vmean: 1.15 m/Susan VTI: 33.33 cmAVA Vmax: 2.06 cm2AVA (VTI): 2.23 mt4USRD Vmax: | | 0.00 cm2/m2AVAI (VTI): 0.00 cm2/m2LVOT Env.Ti: 299.59 msLVOT maxP.68 mmHgLVOT | | meanP.16 mmHgLVSI Dopp: 43.53 ml/m2LVSV Dopp: 74.45 mlLVOT Vmax: 0.95 | | m/sLVOT Vmean: 0.70 m/sLVOT VTI: 20.98 cmMV A Hiren: 0.75 m/sMV Dec [place]: 2.82 | | m/s2MV DecT: 228.26 msMV E Hiren: 0.63 m/sMV E/A Ratio: 0.84E/E' Sept: 13.21E' | | Lat: 0.05 m/sE' Sept: 0.04 m/sRV S': 0.17 m/s Shotgun Shell Loading Machine Operator:Authenticated by: | | Anisha Lopez MDReport Date/Time: -- 29_[id number]_9:37:26 IMPRESSION: 1. This was a | | [...] A Hiren: 0.75 m/s | |MV Dec [place]: 2.82 m/s2 | |MV DecT: 228.26 ms | |MV E Hiren: 0.63 m/s | |MV E/A Ratio: 0.84 | |E/E' Sept: 13.21 | |E' Lat: 0.05 m/s | |E' Sept: 0.04 m/s | |RV S': 0.17 m/s | | | |Shotgun Shell Loading Machine Operator: | |Authenticated by: Anisha Lopez MD | |Report Date/Time: -- 60_[id number]_7:37:26 | | | |IMPRESSION: | |1. This [...]
--- OUTSIDE RECORDS SUMMARY | ~2019-05-05 | XMS | Encounter Summary ---
Demographics + + + | Address | [address] | | | [place] [address] | + + + | Home Phone [...] [place] | | | | | [address] | | + + + + + Care Team Providers + +------+ + | Care Flow Match Sofa Cutter Name | Role | Phone | [...] + + | 09/11/ | Hospital | [facility] | Adelita Lu MD | Recurrent squamous | | 2015 | Encounter | MED CTR CHEMO | [address] | cell carcinoma of | | | | INFUSION [address] | [place], [place] | lung, right (HCC) | | | | [place], | [address] | (Primary Dx) | | | | [place] [address] | [phone] | | | | | [phone] | | | +--------+ + + + [...] | | | | | [place] [address] | | | | | | [phone] | | | | | | | | +--------+ + + + + | 06/08/ | Office | Physical Medicine | Rocky Santos, | | | 2019 | Visit | and Rehabilitation | MD Nichole [address] | | | | | | [place] | | | | | | [address] | | | | | | | | +--------+ + + + + | 06/16/ | Appointment | Pulmonology | Eveline Jaffe | | | 2019 | | | MD Nichole Carter | | | | | | [address] [place] | | | | | | [place] [address] | | | | | | [phone] | | | | | | | | +--------+ + + + + | 06/16/ | Office | Pulmonology | Eveline Jaffe | | | 2019 | Visit | | MD Nichole Carter | | | | | | [address] [place] | | | | | | [place] [address] | | | | | | [phone] | | | | | | | | +--------+ + + + + | 08/24/ | Office | Cardiology | Anisha Lopez DO | | | 2019 | Visit | | [address] | | | | | | [place] | | | | | | [address] | | | | | | | | +--------+ + + + + documented as of this encounter Visit Diagnoses + + | Diagnosis | + + | Recurrent squamous cell carcinoma of lung, right (HCC) - Primary | + + documented in this encounter"
--- OUTSIDE RECORDS SUMMARY | ~2019-05-05 | XMS | Encounter Summary ---
Demographics + + + | Address | [address] | | | [place] [address] | + + + | Home Phone [...] [place] | | | | | [address] | | + + + + + Care Team Providers + +------+ + | Care Veneer Drier Feeder Name | Role | Phone | + +------+ + | Davis Ivan MD | PCP | | + +------+ + Encounter Details +--------+ + + + + | Date | Type | Department | Care Team | Description | +--------+ + + + + | 06/02/ | Hospital | [facility] IP | Conversion | Neck pain | | 2013 | Encounter | CONVERSION [address]P [address] | Transaction, | | | | | [address] | Provider Unknown | | | | | [place] | [phone] | | | | | [address] | | | | | | [phone] | | | +--------+ + + + [...] | 2019 | Visit | | [address] | | | | | | [facility] | | | | | | [place] [address] | | | | | | [phone] | | | | | | | | +--------+ + + + + | 06/08/ | Office | Physical Medicine | Rocky Santos, | | | 2019 | Visit | and Rehabilitation | MD Vare[address] | | | | | | [place] | | | | | | [address] | | | | | | | | +--------+ + + + + | 06/16/ | Appointment | Pulmonology | Eveline Jaffe | | | 2019 | | | MD [address]ole [address] | | | | | | [address] [place] | | | | | | [place] [address] | | | | | | [phone] | | | | | | | | +--------+ + + + + | 06/16/ | Office | Pulmonology | Eveline Jaffe | | | 2019 | Visit | | MD [address]ole [address] | | | | | | [address] [place] | | | | | | [place] [address] | | | | | | [phone] | | | | | | | | +--------+ + + + + | 08/24/ | Office | Cardiology | Anisha Lopez DO | | | 2019 | Visit | | [address] | | | | | | [place] | | | | | | [address] | | | | | | | [...]
--- OUTSIDE RECORDS SUMMARY | ~2019-05-05 | XMS | Encounter Summary ---
Demographics + + + | Address | [address] | | | [place] [address] | + + + | Home Phone [...] [place] | | | | | [address] | | + + + + + Care Team Providers + +------+ + | Care Joy Operator Helper Name | Role | Phone | [...] + + | 07/28/ | Hospital | [facility] | Chalino Chiu | Recurrent squamous | | 2015 | Encounter | MED CTR OR INTRA OP | MD Brittanie, FACS [address] | cell carcinoma of | | | | [address] | [address] [place] | lung, right (HCC) | | | | [place], [place] | [place] [address] | (Primary Dx) | | | | [address] | [phone] | | | | | [phone] | | | +--------+ + + + [...] the port is placed in the arm 2184-9406 [employer] [address] [place] [address], [place] [address]. All aspirus ontonagon hospital[facility] ts reserved. This information is not intended [...] may interact with prescription medicines or other bjoz-gnb-askcucp (OTC) drugs. The FDA recommends reading OTC medication labels careful ly to clearly understand the list of active ingredients, directions, and any precautions to help avoid taking too muchacetaminophen. If you have questions, ask your pharmacist or a [facility] hospital care provider. Managing Nausea Some people [...] or skin changes (rash, itching, or hives). 5064-8274 [employer] [address] [place] [address], [place] [address]. All righ ts reserved. This information is [...] | | | | | [place] [address] | | | | | | [phone] | | | | | | | | +--------+ + + + + | 06/08/ | Office | Physical Medicine | Rocky Santos | | | 2019 | Visit | and Rehabilitation | [address] | | | | | | [place] | | | | | | [address] | | | | | | | | +--------+ + + + + | 06/16/ | Appointment | Pulmonology | Eveline Jaffe | | | 2019 | | | MD [address] | | | | | | [address] [place] | | | | | | [place] [address] | | | | | | [phone] | | | | | | | | +--------+ + + + + | 06/16/ | Office | Pulmonology | Eveline Jaffe | | | 2019 | Visit | | MD [address]ole [address] | | | | | | [address] [place] | | | | | | [place] [address] | | | | | | [phone] | | | | | | | | +--------+ + + + + | 08/24/ | Office | Cardiology | Anisha Lopez DO | | | 2019 | Visit | | [address] | | | | | | [place] | | | | | | [address] | | | | | | | [...]
--- OUTSIDE RECORDS SUMMARY | ~2019-05-05 | XMS | Encounter Summary ---
Demographics + + + | Address | [address] | | | [place] [address] | + + + | Home Phone [...] [place] | | | | | [address] | | + + + + + Care Team Providers + +------+ + | Care Podiatric Physician Name | Role | Phone | [...] | | Pulmonary | Offenstein, | [address] | | | | | nodule | Ayana B, | [place], | | | | | Procedures | MD [address] | [place] [address] | | | | | CT Chest wo | [address] | Phone: | | | | | Contrast | [place], | [phone] | | | | | | [place] [address] | Fax: | | | | | | | [phone] | +--------+--------+ + + + + Encounter Details +--------+ + + + + | Date | Type | Department | Care Team | Description | +--------+ + + + + | 06/09/ | Hospital | [facility] | Offenstein, | Pulmonary nodule | | 2013 | Encounter | MED CTR XRAY [address] | Ayana Looney MD | | | | | [address] | | | | | | [place] [address] | | | | | | [phone] | | | +--------+ + + + [...] HOSPITAL | | | | | | [place] [address] | | | | | | [phone] | | | | | | | | +--------+ + + + + | 06/08/ | Office | Physical Medicine | Rocky Santos, | | | 2019 | Visit | and Rehabilitation | MD Nichole Hind[address] | | | | | | [place] | | | | | | [address] | | | | | | | | +--------+ + + + + | 06/16/ | Appointment | Pulmonology | Eveline Jaffe | | | 2019 | | | MD [address]ole [address] | | | | | | [address] [place] | | | | | | [place], [place] [address] | | | | | | [phone] | | | | | | | | +--------+ + + + + | 06/16/ | Office | Pulmonology | Eveline Jaffe | | | 2019 | Visit | | MD Nichole Carter | | | | | | [address] [place] | | | | | | [place] [address] | | | | | | [phone] | | | | | | | | +--------+ + + + + | 08/24/ | Office | Cardiology | Anisha Lopez DO | | 2019 | Visit | | [address] | | | | | | [place] | | | | | | [address] | | | | | | | [...] Performed At | + + + | [facility] Diagnostic Imaging | [place] | | Department [address] [facility] | [facility] | | [ rep ct street[address]] [ rep ct [facility] | | st zip] Signed | - IMAGING | | | | | Patient Name: THEA CARMONA Physician: | | | KATIEJanet : 1945 Age: 68 Sex: F Unit #: [id number] | | | Exam Date: 06/09/13 Location: [facility] | | | Report #: [id number] Page: | | | %(RAD)RES..mtdd.print.filter("pg") of %(RAD) | | | RES..mtdd.print.filter("tpg") | | | | | | Accession Number: [id number] | | | CT CHEST WITHOUT CONTRAST, 06/09/2013 CLINICAL HISTORY: | | | FOLLOWUP NODULE IN THE SUPERIOR SEGMENT OF THE RIGHT LOWER LOBE. | | | TECHNIQUE: Axial images were obtained from thoracic inlet to | | | upper abdomen without the use of contrast. | | | COMPARISON: 01/28/2013 scan from [place]. FINDINGS: A | | | partially cavitary [...] Transcribed Date/Time: 06/09/2013 16:14 | | | Software Qa System Specialist: <<Signature on File>> | | | | | | Jose Elias Leal MD06/09/13 1702 <Electronically signed by | | | Jose Elias Leal MD> Jose Elias Leal MD 06/09/13 | | | 1545 Software Qa System Specialist: Abakus Tdniuzalwlsez72/09/14 2444 | | | Ayana Taylor MD | | + + + + + + + + | Performing | Address | City/State/Zipcode | Phone Number | | Organization | | | | + + + + + | [facility] | [address] | [place], [place] | [phone] | | [facility] | | [address] | | | - IMAGING | | | | + + + + + XR Cervical Spine 3 Vws or Less (06/09/2013 2:42 PM PST) + + | Specimen | + + | | + + + + + | Narrative | Performed At | + + + | [facility] Diagnostic Imaging | [place] | | Department [address] [place] | [facility] | | [ rep ct street1+2] [ rep ct [facility] | | st zip] Signed | - IMAGING | | | | | Patient Name: THEA CARMONA Physician: | | | 20 : 1945 Age: 68 Sex: F Unit #: [id number] | | | Exam Date: 06/09/13 Location: [facility] [place] | | | Report #: [id number] Page: | | | %(RAD)RES..mtdd.print.filter("pg") of %(RAD) | | | RES..mtdd.print.filter("tpg") | | | | | | Accession Number: [id number] | | | CERVICAL SPINE CLINICAL HISTORY: [...] Transcribed | | | Date/Time: 06/09/2013 15:09 Software Qa System Specialist: | | | <<Signature on File>> | | | Ronak | | | Abilio Heath MD06/10/13 1057 <Electronically signed by Ronak Knox | | | Kumar HESS> Ronak Heath MD 06/09/13 1442 | | | Software Qa System Specialist: [employer]us Qzkrmlastkigc25/09/14 1509 | | | Silviano Cabrera Jr, MD | | + + + + + + + + | Performing | Address | City/State/Zipcode | Phone Number | | Organization | | | | + + + + + | [facility] | [address] | [place] | [phone] | | [facility] | | [address] | | | - IMAGING | | | | + + + + + documented in this encounter Visit Diagnoses + + | Diagnosis | + + | Pulmonary nodule Solitary pulmonary nodule | + + documented in this encounter
--- OUTSIDE RECORDS SUMMARY | ~2019-05-05 | XMS | Encounter Summary ---
Demographics + + + | Address | [address] | | | [place] [address] | + + + | Home Phone [...] [place] | | | | | [address] | | + + + + + Care Team Providers + +------+ + | Care Taker Off Braker Machine Name | Role | Phone | [...] | | | | carcinoma of | [address] | [place] [address] | | | | | lung, right | [place], | Phone: | | | | | (HCC) | [place] [address] | [phone] | | | | | | | Fax: | | | | | | | [phone] | +--------+ + + + + + Reason for Visit +--------+ + | Reason | Comments | +--------+ + | COPD | | +--------+ + Encounter Details +--------+---------+ + + + | Date | Type | Department | Care Team | Description | +--------+---------+ + + + | 07/17/ | Office | [facility] [place] | Offenstein, | COPD exacerbation | | 2014 | Visit | PULMONARY [address] | Ayana Looney MD | ([facility]); Recurrent | | | | [place], | | squamous cell | | | | [place] [address] | | carcinoma of lung, | | | | [phone] | | right ([facility]) | +--------+---------+ + + + Social [...] CT scan. She had this biopsied in [place] by endobronchial ultraso und-transbronchial needle aspiration of [...] (chronic obstructive pulmonary disease) ([facility]) on albuterol Spondylolisthesis of cervical region Spinal stenosis has tried cortisone injections Osteoporosis Depression Pneumonia 2009 hospitalized 5 days Rheumatoid arthritis(714.0) ([facility]) on prednisone and methotrexate, Dr. Lewis [place] Hyperlipidemia on simvastatin Hypertension on clonidine and lisinopril Hypothyroidism GERD (gastroesophageal reflux disease) Stroke ([facility]) 2006 Stroke ([facility]) 2007 Squamous cell carcinoma of lung ([facility]) 07/2013 MARCE (obstructive sleep apnea) AHI 11.6 Sputum culture positive for Scopulariopsis species Recurrent squamous cell carcinoma of lung ([facility]) Past Surgical History Past Surgical History Procedure Laterality Date Hysterectomy Cholecystectomy Cervical spine surgery 2012 Bladder suspension Shoulder surgery Thumb surgery Shoulder surgery right shoulder Tongue surgery benign per pt Lung biopsy 07/21/13 right lower lobe Lobectomy 09/16/13 right lower lobe Back surgery 03/2014 Bronchoscopy 07/11/[address] biopsy, [facility] Dr. 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 Respiratory Therapy Supplies [employer] Respironics autotitrating CPAP at 5-9 cm H2O for life time. Mask, headgear, chin strap, hoses, humidifier chamber and filters. Dx: 327.23 1 each 0 Respiratory Therapy Supplies [employer] ResMed S9 auto CPAP 5-9 cm H2O. [...] made to ensure accuracy; however, inadvertent computerized mingle operator errors may be pre sent. documented [...] | | | | | [place] [address] | | | | | | [phone] | | | | | | | | +--------+ + + + + | 06/08/ | Office | Physical Medicine | Rocky Santos, | | | 2019 | Visit | and Rehabilitation | MD [address] | | | | | | [place] | | | | | | [address] | | | | | | | | +--------+ + + + + | 06/16/ | Appointment | Pulmonology | Eveline Jaffe | | | 2019 | | | MD [address] | | | | | | [place] | | | | | | [place] [address] | | | | | | [phone] | | | | | | | | +--------+ + + + + | 06/16/ | Office | Pulmonology | Eveline Jaffe | | | 2019 | Visit | | MD Raul [address] | | | | | | [place] | | | | | | [place] [address] | | | | | | [phone] | | | | | | | | +--------+ + + + + | 08/24/ | Office | Cardiology | Anisha Lopez DO | | | 2019 | Visit | | [address] | | | | | | [place] | | | | | | [phone] | | | | | | | [...]
--- OUTSIDE RECORDS SUMMARY | ~2019-05-05 | XMS | Encounter Summary ---
Demographics + + + | Address | [address] | | | [place] [address] | + + + | Home Phone [...] [place] | | | | | [address] | | + + + + + Care Team Providers + +------+ + | Care Concrete Block Maker Name | Role | Phone | [...] [place], | | | | | | [place] [id number] | | | | | | [phone] | | | +--------+ + + + [...] | 2018 | Visit | | [address] | | | | | | [facility] | | | | | | [place] [address] | | | | | | [phone] | | | | | | | | +--------+ + + + + | 06/08/ | Office | Physical Medicine | Rocky Santos, | | | 2019 | Visit | and Rehabilitation | [address] | | | | | | [place] | | | | | | [address] | | | | | | | | +--------+ + + + + | 06/16/ | Appointment | Pulmonology | Eveline Jaffe | | | 2019 | | | MD [address] | | | | | | [address] [place] | | | | | | [place] [address] | | | | | | [phone] | | | | | | | | +--------+ + + + + | 06/16/ | Office | Pulmonology | Eveline Jaffe | | | 2019 | Visit | | MD [address]ole [address] | | | | | | [address] [place] | | | | | | [place], [place] [address] | | | | | | [phone] | | | | | | | | +--------+ + + + + | 08/24/ | Office | Cardiology | Anisha Lopez DO | | | 2019 | Visit | | [address] | | | | | | [place] | | | | | | [address] | | | | | | | | +--------+ + + + + documented as of this encounter Visit Diagnoses Not on filedocumented in this encounter"
--- OUTSIDE RECORDS SUMMARY | ~2019-05-05 | XMS | Encounter Summary ---
Demographics + + + | Address | [address] | | | [place] [address] | + + + | Home Phone [...] [place] | | | | | [address] | | + + + + + Care Team Providers + +------+ + | Care Route Sales Trainee Name | Role | Phone | + +------+ + | Davis Ivan MD | PCP | | + +------+ + Encounter Details +--------+ + + + + | Date | Type | Department | Care Team | Description | +--------+ + + + + | 03/30/ | Hospital | [facility] | Conversion | | | 2012 | Encounter | CENTER [facility] | Transaction, | | | | | CLINIC [address] | Provider Unknown | | | | | [place], [place] | | | | | | [address] | (Fax) | | | | | [phone] | | | +--------+ + + + [...] | 2019 | Visit | | [facility] [address] | | | | | | [facility] | | | | | | [place] [address] | | | | | | [phone] | | | | | | | | +--------+ + + + + | 06/08/ | Office | Physical Medicine | Rocky Santos, | | | 2019 | Visit | and Rehabilitation | MD [address] | | | | | | [place] | | | | | | [address] | | | | | | | | +--------+ + + + + | 06/16/ | Appointment | Pulmonology | Eveline Jaffe | | | 2019 | | | MD Nichole Carter [address] | | | | | | [address] [place] | | | | | | [place] [address] | | | | | | [phone] | | | | | | | | +--------+ + + + + | 06/16/ | Office | Pulmonology | Eveline Jaffe | | | 2019 | Visit | | MD Nichole [address] | | | | | | [address] [place] | | | | | | [place] [address] | | | | | | [phone] | | | | | | | | +--------+ + + + + | 08/24/ | Office | Cardiology | Anisha Lopez DO | | | 2019 | Visit | | [address] | | | | | | [place] | | | | | | [address] | | | | | | | [...] EXTERNAL LAB | | Testing performed at [facility];[address] [place] [address];[place] [address] MRSA PCR | | | NEGATIVE Testing performed at | | | [address];[place] [address] | | + + + + +---------+ + + | Performing | Address | City/State/Zipcode | Phone Number | | Organization | | | | + +---------+ + + | EXTERNAL LAB | | | | + +---------+ + + documented in this encounter Visit Diagnoses Not on filedocumented in this encounter"
--- OUTSIDE RECORDS SUMMARY | ~2019-05-05 | XMS | Encounter Summary ---
Demographics + + + | Address | [address] | | | [place] [address] | + + + | Home Phone [...] [place] | | | | | [address] | | + + + + + Care Team Providers + +------+ + | Care Freight Traffic Consultant Name | Role | Phone | + +------+ + | Davis Ivan MD | PCP | | + +------+ + Encounter Details +--------+ + + + + | Date | Type | Department | Care Team | Description | +--------+ + + + + | 08/22/ | Hospital | [facility] | Adelita Lu MD | Lung cancer (HCC) | | 2014 | Encounter | MED CTR PULMONARY | [address] | | | | | FUNCTION [address] | [place], [place] | | | | | [place], | [address] | | | | | [place] [address] | [phone] | | | | | [phone] | | | +--------+ + + + [...] | | | | | [place] [address] | | | | | | [phone] | | | | | | | | +--------+ + + + + | 06/08/ | Office | Physical Medicine | Rocky Santos | | | 2019 | Visit | and Rehabilitation | [address] | | | | | | [place] | | | | | | [address] | | | | | | | | +--------+ + + + + | 06/16/ | Appointment | Pulmonology | Eveline Jaffe | | | 2019 | | | MD [address] | | | | | | [address] [place] | | | | | | [place] [address] | | | | | | [phone] | | | | | | | | +--------+ + + + + | 06/16/ | Office | Pulmonology | Eveline Jaffe | | 2019 | Visit | | MD [address] | | | | | | [address] [place] | | | | | | [place] [address] | | | | | | [phone] | | | | | | | | +--------+ + + + + | 08/24/ | Office | Cardiology | Anisha Lopez DO | | 2019 | Visit | | [address] | | | | | | [place] | | | | | | [address] | | | | | | | [...] signed by: Ayana Taylor MD 09/01/2013 6:07 [facility] | | | [facility] CC: Davis Ivan | | | | [...] Ayana Taylor MD 09/01/2013 6:07[facility] | | [facility] Davis [facility] | |[facility] | | | |CC: Davis Ivan | [...]
--- OUTSIDE RECORDS SUMMARY | ~2019-05-05 | XMS | Encounter Summary ---
Demographics + + + | Address | [address] | | | [place] [address] | + + + | Home Phone [...] [place] | | | | | [address] | | + + + + + Care Team Providers + +------+ + | Care Dock Superintendent Name | Role | Phone | [...] | | | | | | [place] [address] | | | | | | [phone] | | | +--------+ + + + [...] W | | | | | | [facility] | | | | | | [place] [address] | | | | | | [phone] | | | | | | | | +--------+ + + + + | 06/08/ | Office | Physical Medicine | Rocky Santos, | | | 2019 | Visit | and Rehabilitation | [address] | | | | | | [place] | | | | | | [address] | | | | | | | | +--------+ + + + + | 06/16/ | Appointment | Pulmonology | Eveline Jaffe | | | 2019 | | | MD [address] | | | | | | [address] [place] | | | | | | [place], [place] [address] | | | | | | [phone] | | | | | | | | +--------+ + + + + | 06/16/ | Office | Pulmonology | Eveline Jaffe | | | 2019 | Visit | | MD [address] | | | | | | [address] [place] | | | | | | [place] [address] | | | | | | [phone] | | | | | | | | +--------+ + + + + | 08/24/ | Office | Cardiology | Anisha Lopez DO | | | 2019 | Visit | | [address] | | | | | | [place] | | | | | | [address] | | | | | | | | +--------+ + + + + documented as of this encounter Visit Diagnoses Not on filedocumented in this encounter"
--- OUTSIDE RECORDS SUMMARY | ~2019-05-05 | XMS | Encounter Summary ---
Demographics + + + | Address | [address] | | | [place] [address] | + + + | Home Phone [...] [place] | | | | | [address] | | + + + + + Care Team Providers + +------+ + | Care Networker Name | Role | Phone | + +------+ + | Davis Ivan MD | PCP | | + +------+ + Encounter Details +--------+ + + + + | Date | Type | Department | Care Team | Description | +--------+ + + + + | 08/30/ | Hospital | [facility] | Conversion | Pain | | 2014 | Encounter | CONVERSION [address] | Transaction, | | | | | [address] | Provider Unknown | | | | | [place] | [phone] | | | | | [address] | | | | | | [phone] | | | +--------+ + + + [...] | | | | | [place] [address] | | | | | | [phone] | | | | | | | | +--------+ + + + + | 06/08/ | Office | Physical Medicine | Rocky Santos, | | | 2019 | Visit | and Rehabilitation | MD [address] | | | | | | [place] | | | | | | [address] | | | | | | | | +--------+ + + + + | 06/16/ | Appointment | Pulmonology | Eveline Jaffe | | 2019 | | | MD [address] | | | | | | [place] | | | | | | [place] [address] | | | | | | [phone] | | | | | | | | +--------+ + + + + | 06/16/ | Office | Pulmonology | Eveline Jaffe | | | 2019 | Visit | | MD Raul [address] | | | | | | [place] [address] | | | | | | [place] [address] | | | | | | [phone] | | | | | | | | +--------+ + + + + | 08/24/ | Office | Cardiology | Anisha Lopez DO | | | 2019 | Visit | | [address] | | | | | | [place] | | | | | | [address] | | | | | | | [...]
--- OUTSIDE RECORDS SUMMARY | ~2019-05-05 | XMS | Encounter Summary ---
Demographics + + + | Address | [address] | | | [place] [address] | + + + | Home Phone [...] [place] | | | | | [address] | | + + + + + Care Team Providers + +------+ + | Care Environmental Sampling Technician Name | Role | Phone | [...] + + | 08/15/ | Hospital | [facility] | Adelita Lu MD | Recurrent squamous | | 2015 | Encounter | MED CTR MEDICAL | [address] | cell carcinoma of | | | | ONCOLOGY CLINIC [address] | [place] | lung, unspecified | | | | [place] | [address] | laterality (HCC) | | | | [place] [address] | [phone] | (Primary Dx) | | | | [phone] | | | +--------+ + + + [...] 08/15/2014 9:49 AM PDT Hem-Onc Progress Note [facility] Patient name:Thea Carmona : 1945 Age: 69 y.o. CSN: [id number] Date of Service: 08/15/2014 Identifying Statement: Thea Carmona is a 69 y.o. female from [facility] with clinical stage II, non-small cell [...] lewis 2.CT-guided biopsy by interventional radiology at [facility] of the right lung [...] Dr. Mace , thoracic surgeon at [facility] [...] Intermittent ache to lower back and neck 08/08. Taking dilaudid for the pain. Note:Follow up [...] [facility]) on prednisone and methotrexate, Dr. 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 RESPIRATORY THERAPY SUPPLIES [employer] ResMed S9 auto CPAP 5-9 cm H2O. Heater and Humidifier . All necessary supplies. AHI 11.6. Diagnosis Code(s)327.23, also has co morbid hypertension , history of stroke. Length of Need 99 months. Please send order to [facility]. RESPIRATORY THERAPY SUPPLIES [employer] Respironics autotitrating CPAP at 5-9 cm H2O [...] this chart may have been created with [employer] voice recognition software. Occasi onal wrong-word or [...] W | | | | | | [facility] | | | | | | [place] [address] | | | | | | [phone] | | | | | | | | +--------+ + + + + | 06/08/ | Office | Physical Medicine | Rocky Santos, | | | 2019 | Visit | and Rehabilitation | [address] | | | | | | [place] | | | | | | [address] | | | | | | | | +--------+ + + + + | 06/16/ | Appointment | Pulmonology | Eveline Jaffe | | | 2019 | | | MD N[address] Carter | | | | | | [address] [place] | | | | | | [place] [address] | | | | | | [phone] | | | | | | | | +--------+ + + + + | 06/16/ | Office | Pulmonology | Eveline Jaffe | | | 2019 | Visit | | MD Nichole Carter | | | | | | [address] [place] | | | | | | [place], [place] [address] | | | | | | [phone] | | | | | | | | +--------+ + + + + | 08/24/ | Office | Cardiology | Anisha Lopez DO | | | 2019 | Visit | | [address] | | | | | | [place] | | | | | | [address] | | | | | | | | +--------+ + + + + documented as of this encounter Visit Diagnoses + + | Diagnosis | + + | Recurrent squamous cell carcinoma of lung, unspecified laterality (HCC) - Primary | + + documented in this encounter
--- OUTSIDE RECORDS SUMMARY | ~2019-05-05 | XMS | Encounter Summary ---
Demographics + + + | Address | [address] | | | [place] [address] | + + + | Home Phone [...] [place] | | | | | [address] | | + + + + + Care Team Providers + +------+ + | Care Medical Staff Credentialing Coordinator Name | Role | Phone | [...] + + | 12/22/ | Office | [facility] | Giuliano Padilla, | Postop check | | 2019 | Visit | ORTHOPEDIC SURGERY | [address] [facility] | (Primary Dx) | | | | [address] [facility] | [place] [facility] | | | | | [place] | [address] | | | | | [address] | | | | | | [phone] | | | +--------+---------+ + + + [...] | 2018 | Visit | | [address] | | | | | | [facility] | | | | | | [place] [address] | | | | | | [phone] | | | | | | | | +--------+ + + + + | 06/08/ | Office | Physical Medicine | Rocky Santos, | | | 2019 | Visit | and Rehabilitation | MD [address] | | | | | | [place] | | | | | | [address] | | | | | | | | +--------+ + + + + | 06/16/ | Appointment | Pulmonology | Eveline Jaffe | | | 2019 | | | MD [address] | | | | | | [address] [place] | | | | | | [place] [address] | | | | | | [phone] | | | | | | | | +--------+ + + + + | 06/16/ | Office | Pulmonology | Eveline Jaffe | | | 2019 | Visit | | MD [address]ole [address] | | | | | | [address] [place] | | | | | | [place] [address] | | | | | | [phone] | | | | | | | | +--------+ + + + + | 08/24/ | Office | Cardiology | Anisha Lopez DO | | | 2019 | Visit | | [address] | | | | | | [place] | | | | | | [address] | | | | | | | | +--------+ + + + + documented as of this encounter Visit Diagnoses + + | Diagnosis | + + | Postop check - Primary Follow-up examination, following unspecified surgery | + + documented in this encounter"
--- OUTSIDE RECORDS SUMMARY | ~2019-05-05 | XMS | Encounter Summary ---
Demographics + + + | Address | [address] | | | [place] [address] | + + + | Home Phone [...] [place] | | | | | [address] | | + + + + + Care Team Providers + +------+ + | Care Dermatology Sales Representative Name | Role | Phone [...] [address] | | | | | [phone] | [place] [address] | | +--------+ + + + + [...] | | | | | [place] [address] | | | | | | [phone] | | | | | | | | +--------+ + + + + | 06/08/ | Office | Physical Medicine | Rocky Santos | | | 2019 | Visit | and Rehabilitation | MD [address] | | | | | | [place] | | | | | | [address] | | | | | | | | +--------+ + + + + | 06/16/ | Appointment | Pulmonology | Eveline Jaffe | | 2019 | | | MD [address] | | | | | | [address] | | | | | | [place] [address] | | | | | | [phone] | | | | | | | | +--------+ + + + + | 06/16/ | Office | Pulmonology | Eveline Jaffe | | | 2019 | Visit | | MD Raul [address] | | | | | | [place] [address] | | | | | | [place] [address] | | | | | | [phone] | | | | | | | | +--------+ + + + + | 08/24/ | Office | Cardiology | Anisha Lopez DO | | | 2019 | Visit | | [address] | | | | | | [place] | | | | | | [address] | | | | | | | [...]
--- OUTSIDE RECORDS SUMMARY | ~2019-05-05 | XMS | Encounter Summary ---
Demographics + + + | Address | [address] | | | [place] [address] | + + + | Home Phone [...] [place] | | | | | [address] | | + + + + + Care Team Providers + +------+ + | Care Home Service Advisor Name | Role | Phone | [...] + + | 11/29/ | Hospital | [facility] | Offenstein, | Pharyngeal dysphagia | | 2016 | Encounter | MED CTR XRAY [address] | Ayana Looney MD | (Primary Dx); | | | | [place] | Latrice Haas | Recurrent pneumonia; | | | | [place] [address] | M, Speech | Oropharyngeal | | | | [phone] | Pathologist [address] | dysphagia | | | | | [address] [place] | | | | | | [place] [address] | | | | | | [phone] | | | | | | | [...] | | | | | [place] [address] | | | | | | [phone] | | | | | | | | +--------+ + + + + | 06/08/ | Office | Physical Medicine | Rocky Santos, | | | 2019 | Visit | and Rehabilitation | MD [address] | | | | | | [place] | | | | | | [address] | | | | | | | | +--------+ + + + + | 06/16/ | Appointment | Pulmonology | Eveline Jaffe | | 2019 | | | MD [address] | | | | | | [address] | | | | | | [place] [address] | | | | | | [phone] | | | | | | | | +--------+ + + + + | 06/16/ | Office | Pulmonology | Eveline Jaffe | | | 2019 | Visit | | MD Raul [address] | | | | | | [address] | | | | | | [place] [address] | | | | | | [phone] | | | | | | | | +--------+ + + + + | 08/24/ | Office | Cardiology | Anisha Lopez DO | | | 2019 | Visit | | [address] | | | | | | [place] | | | | | | [address] | | | | | | | [...] ESOPHAGRAM SEPTEMBER 2014 TECHNIQUE: In the | [facility] | | upright position, the [...] | + + + + + | [address] | [address] | [place] | [phone] | | [facility] | | [address] | | | - IMAGING | | [...]
--- OUTSIDE RECORDS SUMMARY | ~2019-05-05 | XMS | Encounter Summary ---
Demographics + + + | Address | [address] | | | [place] [address] | + + + | Home Phone [...] [place] | | | | | [address] | | + + + + + Care Team Providers + +------+ + | Care Sld Teacher Name | Role | Phone | [...] + + | 09/11/ | Hospital | [facility] | Adelita Lu MD | Recurrent squamous | | 2015 | Encounter | MED CTR MEDICAL | [address] | cell carcinoma of | | | | ON[facility]OGY CLINIC [address] | [place] | lung, unspecified | | | | [place] | [address] | laterality (HCC); | | | | [place] [address] | [phone] | Pulmonary nodules | | | | [phone] | | | +--------+ + + + [...] | | | | | [place] [address] | | | | | | [phone] | | | | | | | | +--------+ + + + + | 06/08/ | Office | Physical Medicine | Rocky Santos, | | | 2019 | Visit | and Rehabilitation | MD [address] | | | | | | [place] | | | | | | [address] | | | | | | | | +--------+ + + + + | 06/16/ | Appointment | Pulmonology | Eveline Jaffe | | | 2019 | | | MD Nichole Carter | | | | | | [address] [place] | | | | | | [place] [address] | | | | | | [phone] | | | | | | | | +--------+ + + + + | 06/16/ | Office | Pulmonology | Eveline Jaffe | | | 2019 | Visit | | MD Nichole Carter | | | | | | [address] [place] | | | | | | [place] [address] | | | | | | [phone] | | | | | | | | +--------+ + + + + | 08/24/ | Office | Cardiology | Anisha Lopez DO | | | 2019 | Visit | | [address] | | | | | | [place], [place] | | | | | | [address] | | | | | | | | +--------+ + + + + documented as of this encounter Visit Diagnoses + + | Diagnosis | + + | Recurrent squamous cell carcinoma of lung, unspecified laterality (HCC) | + + | Pulmonary nodules Other nonspecific abnormal finding of lung field | + + documented in this encounter"
--- OUTSIDE RECORDS SUMMARY | ~2019-05-05 | XMS | Encounter Summary ---
Demographics + + + | Address | [address] | | | [place] [address] | + + + | Home Phone [...] [place] | | | | | [address] | | + + + + + Care Team Providers + +------+ + | Care Family Support Coordinator Name | Role | Phone | [...] | rheumatoid | [address] | [place] [address] | | | | | factor of | Adryan, | Phone: | | | | | right hand | [place] | [phone] | | | | | without | [address] | Fax: | | | | | organ or | Phone: | [phone] | | | | | systems | [phone] | | | | | | involvement | Fax: | | | | | | ([facility]) | [phone] | | +--------+--------+ + + + + Encounter Details +--------+---------+ + + + | Date | Type | Department | Care Team | Description | +--------+---------+ + + + | 09/23/ | Office | [facility] [place] | Giuliano Padilla, | Osteoarthritis of | | 2018 | Visit | ORTHOPEDIC SURGERY | [address] | first | | | | [address] | [place] | carpometacarpal | | | | [place] | [address] | (CMC) joint of one | | | | [address] | | hand (Primary Dx) | | | | [phone] | | | +--------+---------+ + + + [...] | | | | | [place] [address] | | | | | | [phone] | | | | | | | | +--------+ + + + + | 06/08/ | Office | Physical Medicine | Rocky Santos, | | | 2019 | Visit | and Rehabilitation | MD [address] | | | | | | [place] | | | | | | [address] | | | | | | | | +--------+ + + + + | 06/16/ | Appointment | Pulmonology | Eveline Jaffe | | 2019 | | | MD [address] | | | | | | [address] | | | | | | [place] [address] | | | | | | [phone] | | | | | | | | +--------+ + + + + | 06/16/ | Office | Pulmonology | Eveline Jaffe | | | 2019 | Visit | | MD Raul [address] | | | | | | [address] | | | | | | [place] [address] | | | | | | [phone] | | | | | | | | +--------+ + + + + | 08/24/ | Office | Cardiology | Anisha Lopez DO | | | 2019 | Visit | | [address] | | | | | | [place] | | | | | | [address] | | | | | | | | +--------+ + + + + documented as of this encounter Visit Diagnoses + + | Diagnosis | + + | 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
--- OUTSIDE RECORDS SUMMARY | ~2019-05-05 | XMS | Encounter Summary ---
Demographics + + + | Address | [address] | | | [place] [address] | + + + | Home Phone [...] [place] | | | | | [address] | | + + + + + Care Team Providers + +------+ + | Care Chemical Plant Operator Supervisor Name | Role | Phone | + +------+ + | Davis Ivan MD | PCP | | + +------+ + Reason for Visit +--------+ + | Reason | Comments | +--------+ + | Other | O2 needs | +--------+ + Encounter Details +--------+ + + + + | Date | Type | Department | Care Team | Description | +--------+ + + + + | 08/15/ | Telephone | [facility] [place] | Claudia, | Other (O2 needs) | | 2014 | | PULMONARY [address] | Ayana Looney MD | | | | | [place], | | | | | | [place] [address] | | | | | | [phone] | | | +--------+ + + + [...] | | | | | | [facility] | | | | | | [place] [address] | | | | | | [phone] | | | | | | | | +--------+ + + + + | 06/08/ | Office | Physical Medicine | Rocky Santos, | | | 2019 | Visit | and Rehabilitation | [address] | | | | | | [place] | | | | | | [address] | | | | | | | | +--------+ + + + + | 06/16/ | Appointment | Pulmonology | Eveline Jaffe | | | 2019 | | | MD [address]ole [address] | | | | | | [address] [place] | | | | | | [place] [address] | | | | | | [phone] | | | | | | | | +--------+ + + + + | 06/16/ | Office | Pulmonology | Eveline Jaffe | | | 2019 | Visit | | MD Nichole [address] | | | | | | [address] [place] | | | | | | [place] [address] | | | | | | [phone] | | | | | | | | +--------+ + + + + | 08/24/ | Office | Cardiology | Anisha Lopez DO | | 2019 | Visit | | [address] | | | | | | [place] | | | | | | [address] | | | | | | | | +--------+ + + + + documented as of this encounter Visit Diagnoses + + | Diagnosis | + + | Shortness of breath on exertion - Primary Shortness of breath | + + documented in this encounter"
--- OUTSIDE RECORDS SUMMARY | ~2019-05-05 | XMS | Encounter Summary ---
Demographics + + + | Address | [address] | | | [place] [address] | + + + | Home Phone [...] [place] | | | | | [address] | | + + + + + Care Team Providers + +------+ + | Care E D Tech Name | Role | Phone | [...] | | | | | | [address] | [place] | | | | | | [address] | [facility] | | | | | | [place], | [place] | | | | | | [place] [address] | [address] Phone: | | | | | | Phone: | [phone] | | | | | | [phone] | Fax: | | | | | | Fax: | [phone] | | | | | | [phone] | | +--------+--------+ + + + + [...] | (Primary Dx) | | | | [address] [place], | [address] [place] | | | | | [place] [address] | [place] [address] | | | | | [phone] | [phone] | | | | | | | [...] | | | | | [place] [address] | | | | | | [phone] | | | | | | | | +--------+ + + + + | 06/08/ | Office | Physical Medicine | Rocky Santos, | | | 2019 | Visit | and Rehabilitation | MD [address] | | | | | | [place] | | | | | | [address] | | | | | | | | +--------+ + + + + | 06/16/ | Appointment | Pulmonology | Eveline Jaffe | | | 2019 | | | MD [address] | | | | | | [address] | | | | | | [place] [address] | | | | | | [phone] | | | | | | | | +--------+ + + + + | 06/16/ | Office | Pulmonology | Eveline Jaffe | | | 2019 | Visit | | MD Ralu [address] | | | | | | [address] [place] | | | | | | [place] [address] | | | | | | [phone] | | | | | | | | +--------+ + + + + | 08/24/ | Office | Cardiology | Anisha Lopez DO | | | 2019 | Visit | | [address] | | | | | | [place] | | | | | | [address] | | | | | | | [...]
--- OUTSIDE RECORDS SUMMARY | ~2019-05-05 | XMS | Encounter Summary ---
Demographics + + + | Address | [address] | | | [place] [address] | + + + | Home Phone [...] [place] | | | | | [address] | | + + + + + Care Team Providers + +------+ + | Care Hoop Riveting Machine Operator Helper Name | Role | Phone [...] [address] | | | | | [phone] | [place] [address] | | +--------+ + + + + [...] | | | | | [place] [address] | | | | | | [phone] | | | | | | | | +--------+ + + + + | 06/08/ | Office | Physical Medicine | Rocky Santos, | | | 2019 | Visit | and Rehabilitation | MD [address] | | | | | | [place] | | | | | | [address] | | | | | | | | +--------+ + + + + | 06/16/ | Appointment | Pulmonology | Eveline Jaffe | | 2019 | | | MD [address] | | | | | | [address] | | | | | | [place] [address] | | | | | | [phone] | | | | | | | | +--------+ + + + + | 06/16/ | Office | Pulmonology | Eveline Jaffe | | | 2019 | Visit | | MD Raul [address] | | | | | | [address] | | | | | | [place] [address] | | | | | | [phone] | | | | | | | | +--------+ + + + + | 08/24/ | Office | Cardiology | Anisha Lopez DO | | | 2019 | Visit | | [address] | | | | | | [place] | | | | | | [address] | | | | | | | [...]
--- OUTSIDE RECORDS SUMMARY | ~2019-05-05 | XMS | Encounter Summary ---
Demographics + + + | Address | [address] | | | [place] [address] | + + + | Home Phone [...] [place] | | | | | [address] | | + + + + + Care Team Providers + +------+ + | Care Back Line Cook Name | Role | Phone | [...] | | | | | | [place] [address] | | | | | | [phone] | | | +--------+ + + + [...] | | | | | | [facility] | | | | | | [place] [address] | | | | | | [phone] | | | | | | | | +--------+ + + + + | 06/08/ | Office | Physical Medicine | Rocky Santos, | | | 2019 | Visit | and Rehabilitation | [address] | | | | | | [place] | | | | | | [address] | | | | | | | | +--------+ + + + + | 06/16/ | Appointment | Pulmonology | Eveline Jaffe | | | 2019 | | | MD [address]ole [address] | | | | | | [address] [place] | | | | | | [place], [place] [address] | | | | | | [phone] | | | | | | | | +--------+ + + + + | 06/16/ | Office | Pulmonology | Eveline Jaffe | | | 2019 | Visit | | MD Nichole Carter [address] | | | | | | [address] [place] | | | | | | [place] [address] | | | | | | [phone] | | | | | | | | +--------+ + + + + | 08/24/ | Office | Cardiology | Anisha Lopez DO | | | 2019 | Visit | | [address] | | | | | | [place] | | | | | | [address] | | | | | | | | +--------+ + + + + documented as of this encounter Visit Diagnoses Not on filedocumented in this encounter"
--- OUTSIDE RECORDS SUMMARY | ~2019-05-05 | XMS | Encounter Summary ---
Demographics + + + | Address | [address] | | | [place] [address] | + + + | Home Phone [...] [place] | | | | | [address] | | + + + + + Care Team Providers + +------+ + | Care Call Center Director Name | Role | Phone | + +------+ + | Davis Ivan MD | PCP | | + +------+ + Encounter Details +--------+ + + + + | Date | Type | Department | Care Team | Description | +--------+ + + + + | 03/17/ | Hospital | [facility] | Conversion | | | 2013 | Encounter | [facility] | Transaction, | | | | | CLINIC [address] | Provider Unknown | | | | | [place], [place] | | | | | | [address] | (Fax) | | | | | [phone] | | | +--------+ + + + [...] | | | | | [place] [address] | | | | | | [phone] | | | | | | | | +--------+ + + + + | 06/08/ | Office | Physical Medicine | Rocky Santos, | | | 2019 | Visit | and Rehabilitation | MD [address] | | | | | | [place] | | | | | | [address] | | | | | | | | +--------+ + + + + | 06/16/ | Appointment | Pulmonology | Eveline Jaffe | | 2019 | | | MD [address] | | | | | | [address] | | | | | | [place] [address] | | | | | | [phone] | | | | | | | | +--------+ + + + + | 06/16/ | Office | Pulmonology | Eveline Jaffe | | | 2019 | Visit | | MD Raul [address] | | | | | | [address] [place] | | | | | | [place] [address] | | | | | | [phone] | | | | | | | | +--------+ + + + + | 08/24/ | Office | Cardiology | Anisha Lopez DO | | | 2019 | Visit | | [address] | | | | | | [place] | | | | | | [address] | | | | | | | [...] CHEST 2 VIEW FRONTAL | | AND SXLBDAB2803/17/2014 2:44 PM HISTORY:68 years. Female. History of [...] | | | Patient | performed at [facility];[address] | | [address] | | | | [address];[place] | | | | | | [address] | | | | + + + [...] | | | | | performed at [facility];[address] | | | | | | [address];[place], [place] | | | | | | [address] | | | | + + + [...] | | | | | [place] [address] | | | | + + + + + + | RED CELL | 4.25Comment: Testing | 3.70 - 5.10 | EXTERNAL | | | COUNT | performed at [facility], [address] | M/uL | LAB | | | | [address], | | | | | | [place] [address] | | | | + + + + + + | Hgb | 12.8Comment: Testing | 11.3 - 15.5 | EXTERNAL | | | | performed at [facility], [address] | g/dL | LAB | | | | [address], | | | | | | [place] [address] | | | | + + + + + + | Hematocrit, | 39.4Comment: Testing | 34.0 - 46.0 % | EXTERNAL | | | POC | performed at [facility], [address] | | LAB | | | | [address], | | | | | | [place] [address] | | | | + + + + + + | MCV | 92.6Comment: Testing | 80.0 - 100.0 fl | EXTERNAL | | | | performed at [facility], [address] | | LAB | | | | [address], | | | | | | [place] [address] | | | | + + + + + + | MCH | 30.0Comment: Testing | 27.0 - 34.0 pg | EXTERNAL | | | | performed at [facility], [address] | | LAB | | | | [address], | | | | | | [place] [address] | | | | + + + + + + | MCHC | 32.4Comment: Testing | 32.0 - 35.5 | EXTERNAL | | | | performed at [facility], [address] | g/dL | LAB | | | | [address], | | | | | | [place] [address] | | | | + + + + + + | RDW-CV | 67.4 (H)Comment: Testing | 37 - 53 fl | EXTERNAL | | | | performed at [facility], [address] | | LAB | | | | [address], | | | | | | [place] [address] | | | | + + + + + + | Platelet | 205Comment: Testing | 150 - 400 K/uL | EXTERNAL | | | Count | performed at [facility], [address] | | LAB | | | Plasma | [address], | | | | | | [place] [address] | | | | + + + + + + | MPV | 8.1Comment: Testing | fl | EXTERNAL | | | | performed at [facility], [address] | | LAB | | | | [address], | | | | | | [place] [address] | | | | + + + + + + | Differentia | AUTOMATEDComment: | | EXTERNAL | | | l Type | Testing performed at | | LAB | | | | [facility], [address] | | | | | | [place] | | | | | | [address] | | | | + + + + + + | % Segmented | 80.6Comment: Testing | % | EXTERNAL | | | | performed at [facility], [address] | | LAB | | | Neutrophils | [address], | | | | | | [place] [address] | | | | + + + + + + | % | 11.0Comment: Testing | % | EXTERNAL | | | Lymphocytes | performed at [facility], [address] | | LAB | | | | [address], | | | | | | [place], [place] [address] | | | | + + + + + + | % Monocytes | 6.9Comment: Testing | % | EXTERNAL | | | | performed at [facility], [address] | | LAB | | | | [address], | | | | | | [place], [place] [address] | | | | + + + + + + | % | 0.7Comment: Testing | % | EXTERNAL | | | Eosinophils | performed at [facility], [address] | | LAB | | | | [address], | | | | | | [place] [address] | | | | + + + + + + | % Basophils | 0.8Comment: Testing | % | EXTERNAL | | | | performed at [facility], [address] | | LAB | | | | [address], | | | | | | [place] [address] | | | | + + + + + + | Absolute | 5.7Comment: Testing | 1.9 - 7.4 K/uL | EXTERNAL | | | Segmented | performed at [facility], [address] | | LAB | | | Neutrophils | [address], | | | | | | [place] [address] | | | | + + + + + + | Absolute | 0.8 (L)Comment: Testing | 1.0 - 3.9 K/uL | EXTERNAL | | | Lymphocytes | performed at [facility], [address] | | LAB | | | | [address], | | | | | | [place] [address] | | | | + + + + + + | Absolute | 0.5Comment: Testing | 0 - 0.8 K/uL | EXTERNAL | | | Monocytes | performed at [facility], [address] | | LAB | | | | [address], | | | | | | [place] [address] | | | | + + + + + + | Absolute | 0.0Comment: Testing | 0 - 0.5 K/uL | EXTERNAL | | | Eosinophils | performed at [facility], [address] | | LAB | | | | [address], | | | | | | [place] [address] | | | | + + + + + + | Absolute | 0.1Comment: Testing | 0 - 0.1 K/uL | EXTERNAL | | | Basophils | performed at [facility], [address] | | LAB | | | | [address], | | | | | | [place] [address] | | | | + + + + + + | RBC | 3+Comment: ANISONORMAL | | EXTERNAL | | | Morphology | PLT MORPHTesting | | LAB | | | | performed at [facility], [address] | | | | | | [address], | | | | | | [place] [address] | | | | | | | [...] | | | | | [place] [address] | | | | + + + + + + | K | 4.2Comment: Testing | 3.5 - 4.9 | EXTERNAL | | | | performed at [facility], [address] | mmol/L | LAB | | | | [address], | | | | | | [place] [address] | | | | + + + + + + | Cl | 105Comment: Testing | 99 - 109 mmol/L | EXTERNAL | | | | performed at [facility], [address] | | LAB | | | | [address], | | | | | | [place] [address] | | | | + + + + + + | CO2 | 29Comment: Testing | 23 - 32 mmol/L | EXTERNAL | | | | performed at [facility], [address] | | LAB | | | | [address], | | | | | | [place] [address] | | | | + + + + + + | Anion Gap | 8Comment: Testing | 5 - 20 mmol/L | EXTERNAL | | | | performed at [facility], [address] | | LAB | | | | [address], | | | | | | [place] [address] | | | | + + + + + + | Glucose, | 98Comment: Testing | 65 - 99 mg/dL | EXTERNAL | | | Fasting | performed at [facility], [address] | | LAB | | | | [address], | | | | | | [place] [address] | | | | + + + + + + | BUN | 10Comment: Testing | 8 - 25 mg/dL | EXTERNAL | | | | performed at [facility], [address] | | LAB | | | | [address], | | | | | | [place] [address] | | | | + + + + + + | Creatinine | 0.85Comment: Testing | 0.50 - 1.00 | EXTERNAL | | | | performed at [facility], [address] | mg/dL | LAB | | | | [address], | | | | | | [place] [address] | | | | + + + + + + | BUN/Creatin | 12Comment: Testing | | EXTERNAL | | | ine Ratio | performed at [facility], [address] | | LAB | | | | [address], | | | | | | [place] [address] | | | | + + + + + + | Calcium | 9.6Comment: Testing | 8.5 - 10.2 | EXTERNAL | | | | performed at [facility], [address] | mg/dL | LAB | | | | [address], | | | | | | [place] [address] | | | | + + + [...] | | | | | | at [facility], [address] | | | | | | [address], | | | | | | [place] [address] | | | | + + + [...] EXTERNAL LAB | | Testing performed at [address];[place] [address] MRSA PCR | | | NEGATIVE Testing performed at | | | [address];[place] [address] | | + + + + +---------+ + + | Performing | Address | City/State/Zipcode | Phone Number | | Organization | | | | + +---------+ + + | EXTERNAL LAB | | | | + +---------+ + + documented in this encounter Visit Diagnoses Not on filedocumented in this encounter"
--- OUTSIDE RECORDS SUMMARY | ~2019-05-05 | XMS | Encounter Summary ---
Demographics + + + | Address | [address] | | | [place] [address] | + + + | Home Phone [...] [place] | | | | | [address] | | + + + + + Care Team Providers + +------+ + | Care Oracle R12 Developer Name | Role | Phone | [...] + + | 11/04/ | Telephone | [facility] | Vivian, | Other | | 2015 | | [facility] | Lokesh Gramajo MD [address] | | | | | ONCOLOGY CLIN[facility] [address] | [facility] | | | | | [address] | [place] [address] | | | | | [place] [address] | [phone] | | | | | [phone] | | | +--------+ + + + [...] | 2018 | Visit | | [address] | | | | | | [facility] | | | | | | [place] [address] | | | | | | [phone] | | | | | | | | +--------+ + + + + | 06/08/ | Office | Physical Medicine | Rocky Santos, | | | 2019 | Visit | and Rehabilitation | [address] | | | | | | [place] | | | | | | [address] | | | | | | | | +--------+ + + + + | 06/16/ | Appointment | Pulmonology | Eveline Jaffe | | | 2019 | | | MD Nichole Carter | | | | | | [address] [place] | | | | | | [place] [address] | | | | | | [phone] | | | | | | | | +--------+ + + + + | 06/16/ | Office | Pulmonology | Eveline Jaffe | | | 2019 | Visit | | MD Nichole Carter | | | | | | [address] [place] | | | | | | [place], [place] [address] | | | | | | [phone] | | | | | | | | +--------+ + + + + | 08/24/ | Office | Cardiology | Anisha Lopez DO | | | 2019 | Visit | | [address] | | | | | | [place] | | | | | | [address] | | | | | | | | +--------+ + + + + documented as of this encounter Visit Diagnoses + + | Diagnosis | + + | 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
--- OUTSIDE RECORDS SUMMARY | ~2019-05-05 | XMS | Encounter Summary ---
Demographics + + + | Address | [address] | | | [place] [address] | + + + | Home Phone [...] | [facility] [place] | | | and [place] | + [...] [place] | | | | | [address] | | + + + + + Care Team Providers + +------+ + | Care Rail Assembler Name | Role | Phone | [...] | | bronchus and | [address] | | | | | lung, | [place] | [place], | | | | | unspecified | [place], [place] | [place] [address] | | | | | site | [address] | Phone: | | | | | Procedures | Phone: | [phone] | | | | | CHG | [phone] | Fax: | | | | | [place] | Fax: | [phone] | | | | | [place],[address] | [phone] | | | | | | [place] [...] + + | 08/22/ | Hospital | [facility] | Jimmy Banegas DO | | | 2013 | Encounter | [facility] | [address] | | | | | ONCOLOGY [address] | [place] | | | | | [place], | [address] | | | | | [place] [address] | | | | | | [phone] | | | +--------+ + + + [...] | 2018 | Visit | | [address] | | | | | | [facility] | | | | | | [place] [address] | | | | | | [phone] | | | | | | | | +--------+ + + + + | 06/08/ | Office | Physical Medicine | Rocky Santos, | | | 2019 | Visit | and Rehabilitation | MD Nichole [address] | | | | | | [place] | | | | | | [address] | | | | | | | | +--------+ + + + + | 06/16/ | Appointment | Pulmonology | Eveline Jaffe | | | 2019 | | | MD Nichole Carter | | | | | | [address] [place] | | | | | | [place] [address] | | | | | | [phone] | | | | | | | | +--------+ + + + + | 06/16/ | Office | Pulmonology | Eveline Jaffe | | | 2019 | Visit | | MD [address]ole [address] | | | | | | [address] [place] | | | | | | [place] [address] | | | | | | [phone] | | | | | | | | +--------+ + + + + | 08/24/ | Office | Cardiology | Anisha Lopez DO | | | 2020 | Visit | | [address] | | | | | | [place] | | | | | | [address] | | | | | | | | +--------+ + + + + documented as of this encounter Visit Diagnoses Not on filedocumented in this encounter"
--- OUTSIDE RECORDS SUMMARY | ~2019-05-05 | XMS | Encounter Summary ---
Demographics + + + | Address | [address] | | | [place] [address] | + + + | Home Phone [...] [place] | | | | | [address] | | + + + + + Care Team Providers + +------+ + | Care Piano Maker Name | Role | Phone | [...] | | | Surgery | Synovitis | Daivs | Giuliano Briones MD | | | | | jerry Vaughan MD [address] | [address] | | | | | tenosynoviti | [address] | [place], | | | | | s, | [address] | [place] [address] | | | | | unspecified | [place], | Phone: | | | | | | [place] | [phone] | | | | | | [address] | Fax: | | | | | | Phone: | [phone] | | | | | | [phone] | | | | | | | Fax: | | | | | | | [phone] | | +--------+--------+ + + + + Encounter Details +--------+---------+ + + + | Date | Type | Department | Care Team | Description | +--------+---------+ + + + | 07/19/ | Office | [facility] [place] | Giuliano Padilla, | Trigger finger of | | 2019 | Visit | ORTHOPEDIC SURGERY | MD [address] | left thumb (Primary | | | | [address] | [place] | Dx); Trigger middle | | | | [place] | [address] | finger of left hand; | | | | [address] | | Trigger ring finger | | | | [phone] | | of left hand | +--------+---------+ [...] | 58.5 kg (129 lb) | 07/19/2018 3:14 PM | | | | | PST | | + + + + + | Height | 157.5 cm (5' 2") | 07/19/2018 3:14 PM | | | | | PST | | + + + + + | Body Mass Index | 23.59 | 07/19/2018 3:14 PM | | | | | PST | | + + + + + documented in this encounter Progress Notes Giuliano Padilla MD - 07/19/2018 3:00 PM PSTPatient returns with a new complaint of trigge ring both hands She states that intermittently she [...] We discussed the role of trigger finger release documented in this encounter Plan of Treatment [...] | | | | | [place] [address] | | | | | | [phone] | | | | | | | | +--------+ + + + + | 06/08/ | Office | Physical Medicine | Rocky Santos, | | | 2019 | Visit | and Rehabilitation | MD [address] | | | | | | [place] | | | | | | [address] | | | | | | | | +--------+ + + + + | 06/16/ | Appointment | Pulmonology | Eveline Jaffe | | | 2019 | | | MD [address] | | | | | | [place] | | | | | | [place] [address] | | | | | | [phone] | | | | | | | | +--------+ + + + + | 06/16/ | Office | Pulmonology | Eveline Jaffe | | | 2019 | Visit | | MD [address] | | | | | | [address] [place] | | | | | | [place] [address] | | | | | | [phone] | | | | | | | | +--------+ + + + + | 08/24/ | Office | Cardiology | Anisha Lopez DO | | | 2019 | Visit | | [address] | | | | | | [place] | | | | | | [address] | | | | | | | | +--------+ + + + + documented as of this encounter Visit Diagnoses + + | Diagnosis | + + | Trigger finger of left thumb - Primary | + + | Trigger middle finger of left hand Trigger finger (acquired) | + + | Trigger ring finger of left hand Trigger finger (acquired) | + + documented in this encounter Administered Medications + +--------+ +------+------+ + | Medication Order | MAR | Action | Dose | Rate | Site | | | Action | Date | | | | + +--------+ +------+------+ + | betamethasone (CELESTONE | Given | 07/19/19 | 3 mg | | Other | | SOLUSPAN) injection 3 mg 3 mg, | | 19 5:28 | | | (Comment | | Intramuscular, ONCE, 2/18/19 | | PM PST | | | ) | | at 1745, For 1 dose, Shake well. | | | | | | | Not for IV use., | | | | | | + +--------+ +------+------+ + +---+---+ | | | +---+---+ + +-------+ +------+---+ + | betamethasone (CELESTONE | Given | 07/19/19 | 3 mg | | Other | | SOLUSPAN) injection 3 mg 3 mg, | | 19 5:27 | | | (Comment | | Intramuscular, EVERY 24 HOURS | | PM PST | | | ) | | INTERVAL, First dose on Mon | | | | | | | 07/19/18 at 1745, For 2 doses, | | | | | | | Shake well. Not for IV use., | | | | | | + +-------+ +------+---+ + +---+---+ | | | +---+---+ + +-------+ +------+---+ + | betamethasone (CELESTONE | Given | 07/19/19 | 3 mg | | Other | | SOLUSPAN) injection 3 mg 3 mg, | | 19 5:25 | | | (Comment | | Intramuscular, EVERY 24 HOURS | | PM PST | | | ) | | INTERVAL, First dose on Mon | | | | | | | 07/19/18 at 1745, For 2 doses, | | | | | | | Shake well. Not for IV use., | | | | | | + +-------+ +------+---+ + +---+---+ | | | +---+---+ documented in this encounter
--- OUTSIDE RECORDS SUMMARY | ~2019-05-05 | XMS | Encounter Summary ---
Demographics + + + | Address | [address] | | | [place] [address] | + + + | Home Phone [...] [place] | | | | | [address] | | + + + + + Care Team Providers + +------+ + | Care Field Collector Name | Role | Phone | [...] | | | | lung (HCC) | [address] | [place], [place] | | | | | | [place], | [address] | | | | | | [place] [address] | Phone: | | | | | | | [phone] | | | | | | | Fax: | | | | | | | [phone] | +--------+ + + + + + [...] Looney MD | | | | | [address] [place], | | | | | | [place] [address] | | | | | | [phone] | | | +--------+ + + + [...] | 2018 | Visit | | [address] | | | | | | [facility] | | | | | | [place] [address] | | | | | | [phone] | | | | | | | | +--------+ + + + + | 06/08/ | Office | Physical Medicine | Rocky Santos, | | | 2019 | Visit | and Rehabilitation | MD [address] | | | | | | [place] | | | | | | [address] | | | | | | | | +--------+ + + + + | 06/16/ | Appointment | Pulmonology | Eveline Jaffe | | | 2019 | | | MD [address] | | | | | | [address] [place] | | | | | | [place] [address] | | | | | | [phone] | | | | | | | | +--------+ + + + + | 06/16/ | Office | Pulmonology | Eveline Jaffe | | 2019 | Visit | | MD [address] | | | | | | [address] [place] | | | | | | [place] [address] | | | | | | [phone] | | | | | | | | +--------+ + + + + | 08/24/ | Office | Cardiology | Anisha Lopez DO | | | 2019 | Visit | | [address] | | | | | | [place] | | | | | | [address] | | | | | | | [...]
--- OUTSIDE RECORDS SUMMARY | ~2019-05-05 | XMS | Encounter Summary ---
Demographics + + + | Address | [address] | | | [place] [address] | + + + | Home Phone [...] [place] | | | | | [address] | | + + + + + Care Team Providers + +------+ + | Care It Systems Engineer Name | Role | Phone [...] | | | | CENTER [address] | [facility] [place] | infectious organism | | | | [place] | [place] [address] | (Primary Dx); COPD | | | | [address] | [phone] | exacerbation (HCC) | | | | [phone] | | | +--------+ + + + [...] be sent through Care Everywhere.ADULT, PNEUMONI A (TONGAN)COPD FLARE (TONGAN)documented in this encounter Medications at Time of [...] | 2018 | Visit | | [address] | | | | | | [facility] | | | | | | [place] [address] | | | | | | [phone] | | | | | | | | +--------+ + + + + | 06/08/ | Office | Physical Medicine | Rocky Santos, | | | 2019 | Visit | and Rehabilitation | MD [address] | | | | | | [place] | | | | | | [address] | | | | | | | | +--------+ + + + + | 06/16/ | Appointment | Pulmonology | Eveline Jaffe | | | 2019 | | | MD [address] | | | | | | [address] [place] | | | | | | [place] [address] | | | | | | [phone] | | | | | | | | +--------+ + + + + | 06/16/ | Office | Pulmonology | Eveline Jaffe | | 2019 | Visit | | MD [address] | | | | | | [address] [place] | | | | | | [place] [address] | | | | | | [phone] | | | | | | | | +--------+ + + + + | 08/24/ | Office | Cardiology | Anisha Lopez DO | | | 2019 | Visit | | [address] | | | | | | [place] | | | | | | [address] | | | | | | | [...] [address] | [place] | [phone] | | [facility] | | [address] | | | - LABORATORY | | [...] - 1.030 | [facility] | | | [place] | | | [facility] | | [...] ST. | [address] | [place] | [phone] | | [facility] | | [address] | | | - LABORATORY | | [...] | | | | | | [facility] | | | | [...] [address] | [place] | [phone] | | [facility] | | [address] | | | - LABORATORY | | [...] + | [address] | [address] | [place] | [phone] | | [facility] | | [address] | | | - LABORATORY | | [...] + | [address] | [address] | [place], [place] | [phone] | | [facility] | | [address] | | | - LABORATORY | | [...] | | | FILTRATION | mL/min/1.73m2 | [facility] | | | GAMBIAN | RATE,ESTIMATED | | MEDICAL | | | | mL/min/1.64k2Lnzi than | | CENTER - | | [...] ST. | [address] | [place] | [phone] | | [facility] | | [address] | | | - LABORATORY | | [...]
--- OUTSIDE RECORDS SUMMARY | ~2019-05-05 | XMS | Encounter Summary ---
Demographics + + + | Address | [address] | | | [place] [address] | + + + | Home Phone [...] [place] | | | | | [address] | | + + + + + Care Team Providers + +------+ + | Care Mat Puncher Name | Role | Phone | + [...] + + | 08/15/ | Hospital | [facility] | Adelita Lu MD | Recurrent squamous | | 2015 | Encounter | [facility] | [address] | cell carcinoma of | | | | ONCOLOGY CLINIC [address] | [place] | lung, unspecified | | | | [address] [place] | [address] | laterality (HCC) | | | | [place] [address] | [phone] | (Primary Dx) | | | | [phone] | | | +--------+ + + + [...] 08/15/2014 9:49 AM PDT Hem-Onc Progress Note [facility] Patient name:Thea Carmona : 1945 Age: 69 y.o. CSN: [id number] Date of Service: 08/15/2014 Identifying Statement: Thea Carmona is a 69 y.o. female from [facility] with clinical stage II, non-small cell lung [...] Diagnosis Date COPD (chronic obstructive pulmonary disease) ([facility]) on albuterol Spondylolisthesis of cervical region Spinal stenosis has tried cortisone injections Osteoporosis Depression Pneumonia 2009 hospitalized 5 days Rheumatoid arthritis(714.0) ([facility]) on prednisone and methotrexate, Dr. 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 RESPIRATORY THERAPY SUPPLIES [employer] ResMed S9 auto CPAP 5-9 cm H2O. Heater and Humidifier . All necessary supplies. AHI 11.6. Diagnosis Code(s)327.23, also has co morbid hypertension , history of stroke. Length of Need 99 months. Please send order to [facility]. RESPIRATORY THERAPY SUPPLIES [employer] Respironics autotitrating CPAP at 5-9 cm H2O [...] this chart may have been created with Immy voice recognition software. Occasi onal wrong-word or [...] W | | | | | | [facility] | | | | | | [place] [address] | | | | | | [phone] | | | | | | | | +--------+ + + + + | 06/08/ | Office | Physical Medicine | Rocky Santos, | | | 2019 | Visit | and Rehabilitation | [address] | | | | | | [place] | | | | | | [address] | | | | | | | | +--------+ + + + + | 06/16/ | Appointment | Pulmonology | Eveline Jaffe | | | 2019 | | | MD [address] | | | | | | [address] [place] | | | | | | [place] [address] | | | | | | [phone] | | | | | | | | +--------+ + + + + | 06/16/ | Office | Pulmonology | Eveline Jaffe | | | 2019 | Visit | | MD Nichole Carter | | | | | | [address] [place] | | | | | | [place], [place] [address] | | | | | | [phone] | | | | | | | | +--------+ + + + + | 08/24/ | Office | Cardiology | Anisha Lopez DO | | | 2019 | Visit | | [address] | | | | | | [place] | | | | | | [address] | | | | | | | | +--------+ + + + + documented as of this encounter Visit Diagnoses + + | Diagnosis | + + | Recurrent squamous cell carcinoma of lung, unspecified laterality (HCC) - Primary | + + documented in this encounter
--- OUTSIDE RECORDS SUMMARY | ~2019-05-05 | XMS | Encounter Summary ---
Demographics + + + | Address | [address] | | | [place] [address] | + + + | Home Phone [...] [place] | | | | | [address] | | + + + + + Care Team Providers + +------+ + | Care Diving Judge Name | Role | Phone | + [...] + + | 08/07/ | Hospital | [facility] | Adelita Lu MD | Recurrent squamous | | 2015 | Encounter | [facility] | [address] | cell carcinoma of | | | | ONCOLOGY CLINIC [address] | [place] | lung, unspecified | | | | [place] | [address] | laterality (HCC) | | | | [place] [address] | [phone] | (Primary Dx) | | | | [phone] | | | +--------+ + + + [...] 08/07/2014 9:46 AM PDT Hem-Onc Progress Note [facility] Patient name:Thea Carmona : 1945 Age: 69 y.o. CSN: [id number] Date of Service: 08/07/2014 Identifying Statement: Thea Carmona is a 69 y.o. female from [facility] with clinical stage II, non-small [...] lewis 2.CT-guided biopsy by interventional radiology at [facility] of the right lung massshows squamous cell [...] Dr. Mace , thoracic surgeon at [facility] for consideration of broncho scopy, right thoracoscopy, [...] COPD (chronic obstructive pulmonary disease) ([facility]) on albuterol Spondylolisthesis of cervical region Spinal stenosis has tried cortisone injections Osteoporosis Depression Pneumonia 2009 hospitalized 5 days Rheumatoid arthritis(714.0) ([facility]) [facility]one [facility]lipidemia on simvastatin Hypertension on clonidine and lisinopril Hypothyroidism GERD (gastroesophageal reflux disease) Stroke ([facility]) 2006 Stroke ([facility]) 2007 Squamous cell carcinoma of lung ([facility]) 07/2013 right lower lobe Sputum [...] mg by mouth Daily. RESPIRATORY THERAPY SUPPLIES [facility] [employer] ResMed S9 auto CPAP 5-9 cm H2O. Heater and Humidifier . All necessary supplies. AHI 11.6. Diagnosis Code(s)327.23, also has co morbid hypertension , history of stroke. Length of Need 99 months. Please send order to [facility]. RESPIRATORY THERAPY SUPPLIES [employer] Respironics autotitrating CPAP at 5-9 cm H2O [...] K/uL Imaging: PET/CT scan June 2014: [facility]: Necrotic right lung lesion wit h SUV [...] this chart may have been created with Plango voice recognition software. Occasi onal wrong-word or [...] | | | | | | [place] [address] | | | | | | [phone] | | | | | | | | +--------+ + + + + | 06/08/ | Office | Physical Medicine | Rocky Santos, | | | 2019 | Visit | and Rehabilitation | MD [address] | | | | | | [place] | | | | | | [address] | | | | | | | | +--------+ + + + + | 06/16/ | Appointment | Pulmonology | Eveline Jaffe | | 2019 | | | MD [address] | | | | | | [place] | | | | | | [place] [address] | | | | | | [phone] | | | | | | | | +--------+ + + + + | 06/16/ | Office | Pulmonology | Eveline Jaffe | | | 2019 | Visit | | MD [address] | | | | | | [place] | | | | | | [place] [address] | | | | | | [phone] | | | | | | | | +--------+ + + + + | 08/24/ | Office | Cardiology | Anisha Lopez DO | | | 2019 | Visit | | [address] | | | | | | [place] | | | | | | [address] | | | | | | | | +--------+ + + + + documented as of this encounter Visit Diagnoses + + | Diagnosis | + + | Recurrent squamous cell carcinoma of lung, unspecified laterality (HCC) - Primary | + + documented in this encounter
--- OUTSIDE RECORDS SUMMARY | ~2019-05-05 | XMS | Encounter Summary ---
Demographics + + + | Address | [address] | | | [place] [address] | + + + | Home Phone [...] [address] | | | | | [address] | | + + + + + Care Team Providers + +------+ + | Care Technical Service Specialist Name | Role | Phone | [...] + + | 04/11/ | Telephone | [facility] | Rodney Worthy | Wrist Pain | | 2019 | | ORTHOPEDIC SURGERY | MD [address] | | | | | [address] [facility] | [facility] | | | | | [place] | [place] [address] | | | | | [address] | [phone] | | | | | [phone] | | | +--------+ + + + [...] 05/30/ | Office | Rheumatology | Santosh uSmner, | | | 2018 | Visit | | [address] | | | | | | [place] | | | | | | [place] [address] | | | | | | [phone] | | | | | | | | +--------+ + + + + | 06/08/ | Office | Physical Medicine | Rocky Santos, | | | 2019 | Visit | and Rehabilitation | [address] | | | | | | [place] | | | | | | [address] | | | | | | | | +--------+ + + + + | 06/16/ | Appointment | Pulmonology | Eveline Jaffe | | | 2019 | | | MD [address] | | | | | | [address] [place] | | | | | | [place] [address] | | | | | | [phone] | | | | | | | | +--------+ + + + + | 06/16/ | Office | Pulmonology | Eveline Jaffe | | | 2019 | Visit | | MD [address] | | | | | | [address] [place] | | | | | | [place] [address] | | | | | | [phone] | | | | | | | | +--------+ + + + + | 08/24/ | Office | Cardiology | Anisha Lopez DO | | | 2019 | Visit | | [address] | | | | | | [place] | | | | | | [address] | | | | | | | | +--------+ + + + + documented as of this encounter Visit Diagnoses Not on filedocumented in this encounter"
--- OUTSIDE RECORDS SUMMARY | ~2019-05-05 | XMS | Encounter Summary ---
Demographics + + + | Address | [address] | | | [place] [address] | + + + | Home Phone [...] [place] | | | | | [address] | | + + + + + Care Team Providers + +------+ + | Care Groundskeeper Porter Name | Role | Phone | [...] + + | 08/24/ | Hospital | [facility] | Offenstein, | Cough | | 2014 | Encounter | MED CTR XRAY [address] | Ayana Looney MD | | | | | [address] | | | | | | [place] [address] | | | | | | [phone] | | | +--------+ + + + [...] | | | | | [place] [address] | | | | | | [phone] | | | | | | | | +--------+ + + + + | 06/08/ | Office | Physical Medicine | Rocky Santos, | | | 2019 | Visit | and Rehabilitation | MD [address] | | | | | | [place] | | | | | | [address] | | | | | | | | +--------+ + + + + | 06/16/ | Appointment | Pulmonology | Eveline Jaffe | | 2019 | | | Sherrin, MD [address] | | | | | | [address] [place] | | | | | | [place] [address] | | | | | | [phone] | | | | | | | | +--------+ + + + + | 06/16/ | Office | Pulmonology | Eveline Jaffe | | | 2019 | Visit | | MD Raul [address] | | | | | | [address] [place] | | | | | | [place] [address] | | | | | | [phone] | | | | | | | | +--------+ + + + + | 08/24/ | Office | Cardiology | Anisha Lopez DO | | | 2019 | Visit | | [address] | | | | | | [place] | | | | | | [address] | | | | | | | [...] FINDINGS: Stable left internal jugular line | [facility] | | with tip in [...] [address] | [place] | [phone] | | [facility] | | [address] | | | - IMAGING | | | | + + + + + documented in this encounter Visit Diagnoses + + | Diagnosis | + + | Cough | + + documented in this encounter"
--- OUTSIDE RECORDS SUMMARY | ~2019-05-05 | XMS | Encounter Summary ---
Demographics + + + | Address | [address] | | | [place] [address] | + + + | Home Phone [...] [place] | | | | | [address] | | + + + + + Care Team Providers + +------+ + | Care Life Science Technical Officer Name | Role | Phone | [...] + | 10/24/ | Refill | [facility] | Jimmy Banegas DO | Medication Refill | | 2014 | | MED CTR RADIATION | [address] | | | | | ONCOLOGY [address] | [place] | | | | | [place], | [address] | | | | | [place] [address] | | | | | | [phone] | | | +--------+--------+ + + + [...] | 2018 | Visit | | [address] | | | | | | [facility] | | | | | | [place] [address] | | | | | | [phone] | | | | | | | | +--------+ + + + + | 06/08/ | Office | Physical Medicine | Rocky Santos, | | | 2019 | Visit | and Rehabilitation | [address] | | | | | | [place] | | | | | | [address] | | | | | | | | +--------+ + + + + | 06/16/ | Appointment | Pulmonology | Eveline Jaffe | | | 2019 | | | MD [address] | | | | | | [address] [place] | | | | | | [place] [address] | | | | | | [phone] | | | | | | | | +--------+ + + + + | 06/16/ | Office | Pulmonology | Eveline Jaffe | | | 2019 | Visit | | MD [address] | | | | | | [address] [place] | | | | | | [place] [address] | | | | | | [phone] | | | | | | | | +--------+ + + + + | 08/24/ | Office | Cardiology | Anisha Lopez DO | | | 2019 | Visit | | [address] | | | | | | [place] | | | | | | [address] | | | | | | | | +--------+ + + + + documented as of this encounter Visit Diagnoses Not on filedocumented in this encounter"
--- OUTSIDE RECORDS SUMMARY | ~2019-05-05 | XMS | Encounter Summary ---
Demographics + + + | Address | [address] | | | [place] [address] | + + + | Home Phone [...] [place] | | | | | [address] | | + + + + + Care Team Providers + +------+ + | Care Food Service Order Clerk Name | Role | Phone [...] + + | 10/02/ | Hospital | [facility] | Dimitri Kim, | Chronic obstructive | | 2015 - | Encounter | [facility] | MD Nichole ZAPATA | pulmonary disease, | | | | [address] [place] | [place] | unspecified COPD | | 10/05/ | | [place] [address] | [id number] | type (HCC) (Primary | | 2016 | | [phone] | | Dx); Recurrent | | | | | Bony Hernandez P, | squamous cell | | | | | MD [address] | carcinoma of lung, | | | | | [place], [place] | right (HCC); CAP | | | | | [phone] | (community acquired | | | | [...] f rom the original. HOSPITALIST DISCHARGE SUMMARY [facility] in [place], [place] Pt. Name/Age/: Thea Carmona 70 y.o. 1945 Date of admission: 10/03/2015 Discharge date and time: October 06, 2015 from inpatient hospitalization. Hospital Day: 4 Admitting Physician: Dimitri Kim MD Primary Care Physician: Davis Ivan [...] mg by mouth Daily. Blood Pressure Cuff [facility] Please provide patient with appropriate sized blood [...] Department Center 11/07/2015 13:00 Ayana Taylor MD [facility] Follow-up Information Follow up with Davis Ivan MD In 2 weeks. Specialty: Family Medicine Contact information: [address] [facility] [address] [place] [address] Follow up issues and pending [...] 57 No results for input(s): PHART, PO2ART, CAX1TCI, V7HFJBOK, BEART in the last 168 hours. No results for input(s): BNP, DDIMER in the last 168 hours. Invalid input(s): CKTOTAL, TROPONINI, CKMBINDEX Recent Labs Lab 10/03/15 0535 INR 1.03 No results found for: POCGLU Patient was seen and examined today and less than 30 minutes spent on discharge from [facility] ent status. Electronically signed by: Bony Hernandez MD 10/06/2015 11:37 Portions of this chart may have been created with [employer] voice recognition software. 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); MARCE (obstructive sleep apnea); Full [...] Value Units Date/Time Culture, Respiratory, Lower, Smear [[id number]] Collected: 10/03/15 1756 Order Status: Completed Lab Status: Final result Updated: 10/05/15 1458 Specimen Information: Respiratory / Sputum, expectorated Culture 2+ Usual Respiratory Aline 1+ Renee albicans Gram Stain Result 3+ White Blood Cells 2+ Epithelial cells 1+ Gram positive cocci Culture, Blood [[id number]] Collected: 10/03/15 1459 Order Status: Completed Lab Status: Preliminary result Updated: 10/04/15310 Specimen Information: Blood / Peripheral Blood Culture Result: No growth: Monitored continually by instrument for 5 days Culture, Blood [[id number]] Collected: 10/03/15 1448 Order Status: Completed Lab Status: Preliminary result Updated: 10/04/15310 Specimen Information: Blood / Peripheral Blood Culture Result: No growth: Monitored continually by instrument for 5 days Culture, Blood [[id number]] Order Status: Canceled Lab Status: No result Specimen Information: Blood / Peripheral Blood Culture, Urine [[id number]] Collected: 10/03/15 0543 Order Status: Completed Lab Status: Final result Updated: 10/05/15 1053 Specimen Information: Urine / Urine, clean catch Culture Result: 30,000 - 40,000 CFU/ml Mixed aline (multiple morphologies present) Comment: Suggests contamination with urogenital or skin aline. Culture, MRSA [[id number]] Collected: 10/03/15 0449 Order Status: Completed Lab [...] pain, productive cough, and fever. Transfer from [place] . She had SCC right lung with [...] the original. HOSPITALIST PROGRESS NOTE on 10/05/2015 [facility] Pt. Name/Age/: Thea Carmona 70 y.o. 1945 Med. Record Number: [id number] Primary Care Physician: Davis Ivan MD Date [...] last few weeks. Came to ER in [place] and was sent here for pneumonia. Sees [...] 57 No results for input(s): PHART, PO2ART, VZC0WVZ, N7RKJVXC, BEART in the last 168 hours. No results for input(s): TROPONINT, BNP in the last 168 hours. Invalid input(s): CKTOTAL, TROPONINI, CKMBINDEX Recent Labs Lab 10/03/15 0535 INR 1.03 No results found for: POCGLU Micro results last 72hrs: Microbiology Results (72 hrs) Procedure Component Value Units Date/Time Culture, Respiratory, Lower, Smear [[id number]] Collected: 10/03/15 6168 Order Status: Completed Lab Status: Preliminary result Updated: 10/04/15 5745 Specimen Information: Respiratory / Sputum, expectorated Culture Culture in progress... 1+ Usual Respiratory Aline Gram Stain Result 3+ White Blood Cells 2+ Epithelial cells 1+ Gram positive cocci Culture, Blood [[id number]] Collected: 10/03/15 1459 Order Status: Completed Lab Status: Preliminary result Updated: 10/04/15 031 Specimen Information: Blood / Peripheral Blood Culture Result: No growth: Monitored continually by instrument for 5 days Culture, Blood [[id number]] Collected: 10/03/15 1448 Order Status: Completed Lab Status: Preliminary result Updated: 10/04/15310 Specimen Information: Blood / Peripheral Blood Culture Result: No growth: Monitored continually by instrument for 5 days Culture, Urine [[id number]] Collected: 10/03/15 0543 Order Status: Completed Lab Status: Final result Updated: 10/05/15 1053 Specimen Information: Urine / Urine, clean catch Culture Result: 30,000 - 40,000 CFU/ml Mixed aline (multiple morphologies present) Comment: Suggests contamination with urogenital or skin aline. Culture, MRSA [[id number]] Collected: 10/03/15 0449 Order Status: Completed Lab [...] hydroxide, ondansetron OR ondansetron DVT Prophylaxis Lovenox [facility] Documentation I expect this patient will be hospitalized for greater than 2-midnights and expect the post -hospital plan to be discharge to home or to an adult foster home. Electronically signed by: Bony Hernandez MD, 10/05/2015 12:17 [facility] Portions of this chart may [...] COPD (chronic obstructive pulmonary disease) ([facility]); S pondylolisthesis of cervical region; Spinal stenosis; Osteoporosis; Depression; Pneumonia (2 009); Rheumatoid arthritis(714.0) ([facility]); Hyperlipidemia; Hypertension; Hypothyroidism; GERD (gastroesophageal reflux disease); Stroke ([facility]) (2006); Stroke ([facility]) (2007); Squamous cell c arcinoma of lung ([facility]) (07/2013); Sputum culture positive for Scopulariopsis species; 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 1+ Usual Respiratory Aline Gram Stain Result 3+ White Blood Cells 2+ Epithelial cells 1+ Gram positive cocci Culture, Blood [[id number]] Collected: 10/03/15 1459 Order Status: Completed Lab Status: Preliminary result Updated: 10/04/15310 Specimen Information: Blood / Peripheral Blood Culture Result: No growth: Monitored continually by instrument for 5 days Culture, Blood [[id number]] Collected: 10/03/15 1448 Order Status: Completed Lab Status: Preliminary result Updated: 10/04/15310 Specimen Information: Blood / Peripheral Blood Culture Result: No growth: Monitored continually by instrument for 5 days Culture, Blood [[id number]] Order Status: Canceled Lab Status: No result Specimen Information: Blood / Peripheral Blood Culture, Urine [[id number]] Collected: 10/03/15 0543 Order Status: Completed Lab Status: Preliminary result Updated: 10/04/1514 Specimen Information: Urine / Urine, clean catch Culture No growth to date Culture, MRSA [[id number]] Collected: 10/03/15 1823 Order Status: Completed Lab Status: Final result [...] pain, productive cough, and fever. Transfer from [place] . 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 1+ Usual Respiratory Aline Gram Stain Result 3+ White Blood Cells 2+ Epithelial cells 1+ Gram positive cocci Culture, Blood [[id number]] Collected: 10/03/15 1459 Order Status: Completed Lab Status: Preliminary result Updated: 10/04/15 031 Specimen Information: Blood / Peripheral Blood Culture Result: No growth: Monitored continually by instrument for 5 days Culture, Blood [[id number]] Collected: 10/03/15 1448 Order Status: Completed Lab Status: Preliminary result Updated: 10/04/15310 Specimen Information: Blood / Peripheral Blood Culture Result: No growth: Monitored continually by instrument for 5 days Culture, Blood [[id number]] Order Status: Canceled Lab Status: No result Specimen Information: Blood / Peripheral Blood Culture, Urine [[id number]] Collected: 10/03/15 0543 Order Status: Completed Lab Status: Preliminary result Updated: 10/04/15 0714 Specimen Information: Urine / Urine, clean catch Culture No growth to date Culture, MRSA [[id number]] Collected: 10/03/15 0449 Order Status: Completed Lab Status: Final result Updated: 10/04/15 0755 Specimen Information: Respiratory / Nares Culture Negative for MRSA by chromogenic agar method UA: moderate blood, 5-10 RBC, 5-10 squamous epi cells, few budding yeasts, bacteria (-) Recent Labs Lab 10/04/15 0447 10/03/15 0597 WBC 12.4* 16.4* CREA 0.92 1.00 Imagin10/04/15 [...] pain, productive cough, and fever. Transfer from [place] . She had SCC right lung with [...] AM PDT HOSPITALIST PROGRESS NOTE on 10/04/2015 [facility] Pt. Name/Age/: Thea Carmona 70 y.o. 1945 Med. Record Number: [id number] Primary Care Physician: Davis Ivan MD Date [...] last few weeks. Came to ER in [place] and was sent here for pneumonia. Sees Dr. Park and Dr. Tayolr. Placed on steroids and antibioti cs as [...] 57 No results for input(s): PHART, PO2ART, TMY0MCA, F8XREHRX, BEART in the last 168 hours. No results for input(s): TROPONINT, BNP in the last 168 hours. Invalid input(s): CKTOTAL, TROPONINI, CKMBINDEX Recent Labs Lab 10/03/15 0535 INR 1.03 No results found for: POCGLU Micro results last 72hrs: Microbiology Results (72 hrs) Procedure Component Value Units Date/Time Culture, Respiratory, Lower, Smear [[id number]] Collected: 10/03/15 1756 Order Status: Completed Lab Status: Preliminary result Updated: 10/04/15 6169 Specimen Information: Respiratory / Sputum, expectorated Culture Culture in progress... 1+ Usual Respiratory Aline Gram Stain Result 3+ White Blood Cells 2+ Epithelial cells 1+ Gram positive cocci Culture, Blood [[id number]] Collected: 10/03/15 1459 Order Status: Completed Lab Status: Preliminary result Updated: 10/04/15310 Specimen Information: Blood / Peripheral Blood Culture Result: No growth: Monitored continually by instrument for 5 days Culture, Blood [[id number]] Collected: 10/03/15 1448 Order Status: Completed Lab Status: Preliminary result Updated: 10/04/15310 Specimen Information: Blood / Peripheral Blood Culture Result: No growth: Monitored continually by instrument for 5 days Culture, Urine [[id number]] Collected: 10/03/15 0543 Order Status: Completed Lab Status: Preliminary result Updated: 10/04/15 0714 Specimen Information: Urine / Urine, clean catch Culture No growth to date Culture, MRSA [[id number]] Collected: 10/03/15 0449 Order Status: Completed Lab [...] hydroxide, ondansetron OR ondansetron DVT Prophylaxis Lovenox [facility] Documentation I expect this patient will be hospitalized for greater than 2-midnights and expect the post -hospital plan to be discharge to home or to an adult foster home. Electronically signed by: Bony Hernandez MD, 10/04/2015 10:05 [facility] Portions of this chart may have been created with[employer] voice recognition software. 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 Transfer from [place] . She had SCC right lung with [...] AM PDT HOSPITALIST PROGRESS NOTE on 10/03/2015 [facility] Pt. Name/Age/: Thea Carmona 70 y.o. 1945 Med. Record Number: [id number] Primary Care Physician: Davis Ivan MD Date [...] last few weeks. Came to ER in [place] and was sent here f or pneumonia. Sees Dr. Park and Dr. Taylor. Placed on steroids and antibiotics as well as aggressive RT. No better this morning. Takes 8 mg dilaudid every 3 hours at [facility]. 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 Last chest CT six months ago here. With her rather large doses of dilaudid at [facility], we need to keep in [...] 57 No results for input(s): PHART, PO2ART, XUJ1QAG, I6RNGTRE, BEART in the last 168 hours. No results for input(s): TROPONINT, BNP in the last 168 hours. Invalid input(s): CKTOTAL, TROPONINI, CKMBINDEX Recent Labs Lab 10/03/15 0535 INR 1.03 No results found for: POCGLU Micro results last 72hrs: Microbiology Results (72 hrs) Procedure Component Value Units Date/Time Culture, Urine [[id number]] Collected: 10/03/15 0543 Order Status: Resulted Lab Status: In process Updated: 10/03/1516 Specimen Information: Urine / Urine, clean catch Culture, MRSA [[id number]] Collected: 10/03/15 0449 Order Status: Sent Lab [...] hydroxide, ondansetron OR ondansetron DVT Prophylaxis Lovenox [facility] Documentation I expect this patient will be hospitalized for greater than 2-midnights and expect the post -hospital plan to be discharge to home or to an adult foster home. Electronically signed by: Bony Hernandez MD, 10/03/2015 8:19 [facility] Portions of this chart may have been created with[employer] voice recognition software. Occas ional wrong-word or [...] | 2018 | Visit | | [address]I [address] | | | | | | [facility] | | | | | | [place] [address] | | | | | | [phone] | | | | | | | | +--------+ + + + + | 06/08/ | Office | Physical Medicine | Rocky Santos, | | | 2019 | Visit | and Rehabilitation | MD [address] | | | | | | [place] | | | | | | [address] | | | | | | | | +--------+ + + + + | 06/16/ | Appointment | Pulmonology | Eveline Jaffe | | | 2019 | | | MD [address] | | | | | | [address] [place] | | | | | | [place] [address] | | | | | | [phone] | | | | | | | | +--------+ + + + + | 06/16/ | Office | Pulmonology | Eveline Jaffe | | | 2019 | Visit | | MD [address] | | | | | | [address] [place] | | | | | | [place] [address] | | | | | | [phone] | | | | | | | | +--------+ + + + + | 08/24/ | Office | Cardiology | Anisha Lopez DO | | | 2019 | Visit | | [address] | | | | | | [place] | | | | | | [address] | | | | | | | [...] ST. | [address] | [place] | [phone] | | [facility] | | [address] | | | - LABORATORY | | [...] 15 | 7 - 18 mg/dL | [facility] | | | | | | [facility] | | | | | | MEDICAL | | | | | | CENTER - | | | | | | LABORATORY | | + + + + + + | Creatinine | 0.92 | 0.60 - 1.30 | [facility] | | | | | mg/dL | [facility] | | | | | | MEDICAL | | | | | | CENTER - | | | | | | LABORATORY | | + + + + + + | eGFR if not | 60Comment: GLOMERULAR | >=60 | [facility] | | | | FILTRATION | mL/min/1.73m2 | [facility] | | | [facility] | RATE,ESTIMATED | | MEDICAL | | | | mL/min/1.72p3Bsqe than | | CENTER - | | [...] + | [facility] | [address] | [place] | [phone] | | [facility] | | [address] | | | - LABORATORY | | [...] [address] | [place] | [phone] | | [facility] | | [address] | | | - LABORATORY | | [...] | | | | Aline | | [facility] | | | | | [...] [address] | [place] | [phone] | | [facility] | | [address] | | | - LABORATORY | | [...] + | [facility] | [address] | [place] | [phone] | | [facility] | | [address] | | | - LABORATORY | | [...] + | [facility] | [address] | [place], [place] | [phone] | | [facility] | | [address] | | | - LABORATORY | | [...] + | [facility] | [address] | [place] | [phone] | | [facility] | | [address] | | | - LABORATORY | | [...] - 1.030 | [facility] | | | [place] | | | [facility] | | [...] + | [facility] | [address] | [place] | [phone] | | [facility] | | [address] | | | - LABORATORY | | [...] [address] | [place] | [phone] | | [facility] | | [address] | | | - LABORATORY | | [...] + | [facility] | [address] | [place], [place] | [phone] | | [facility] | | [address] | | | - LABORATORY | | [...] | | MEDICAL | | | | mL/min/1.66m5Epfv than | | CENTER - | | [...] [address] | [place] | [phone] | | [facility] | | [address] | | | - LABORATORY | | [...] [address] | [place] | [phone] | | [facility] | | [address] | | | - LABORATORY | | [...] [address] | [place] | [phone] | | [facility] | | [address] | | | - LABORATORY | | [...]
--- OUTSIDE RECORDS SUMMARY | ~2019-05-05 | XMS | Encounter Summary ---
Demographics + + + | Address | [address] | | | [place] [address] | + + + | Home Phone [...] [place] | | | | | [address] | | + + + + + Care Team Providers + +------+ + | Care Rack Washer Name | Role | Phone | [...] + + | 11/04/ | Telephone | [facility] | Vivian, | Other | | 2015 | | [facility] | Lokesh Gramajo MD [address] | | | | [facility] [address] | [facility] | | | | | [address] | [place] [address] | | | | | [place] [address] | [phone] | | | | | [phone] | | | +--------+ + + + [...] | | | | | [place] [address] | | | | | | [phone] | | | | | | | | +--------+ + + + + | 06/08/ | Office | Physical Medicine | Rocky Santos, | | | 2019 | Visit | and Rehabilitation | [address] | | | | | | [place] | | | | | | [address] | | | | | | | | +--------+ + + + + | 06/16/ | Appointment | Pulmonology | Eveline Jaffe | | | 2019 | | | MD Nichole Carter | | | | | | [address] [place] | | | | | | [place] [address] | | | | | | [phone] | | | | | | | | +--------+ + + + + | 06/16/ | Office | Pulmonology | Eveline Jaffe | | | 2019 | Visit | | MD Nichole Carter | | | | | | [address] [place] | | | | | | [place], [place] [address] | | | | | | [phone] | | | | | | | | +--------+ + + + + | 08/24/ | Office | Cardiology | Anisha Lopez DO | | | 2019 | Visit | | [address] | | | | | | [place] | | | | | | [address] | | | | | | | | +--------+ + + + + documented as of this encounter Visit Diagnoses + + | Diagnosis | + + | 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
--- OUTSIDE RECORDS SUMMARY | ~2019-05-05 | XMS | Encounter Summary ---
Demographics + + + | Address | [address] | | | [place] [address] | + + + | Home Phone [...] [place] | | | | | [address] | | + + + + + Care Team Providers + +------+ + | Care Supervisor Throwing Department Name | Role | Phone | + +------+ + | Caitlin Chino MD | PCP | | + +------+ + Encounter Details +--------+ + + + + | Date | Type | Department | Care Team | Description | +--------+ + + + + | 02/25/ | Orders Only | [facility] | Santosh Sumner, | Decreased GFR | | 2019 | | RHEUMATOLOGY [address] | PA-C [address] | (Primary Dx) | | | | [place] | [facility] | | | | | [place], [place] | [place] [address] | | | | | [address] | [phone] | | | | | [phone] | | | +--------+ + + + [...] | | | | | [facility] | | | | | | [place] [address] | | | | | | [phone] | | | | | | | | +--------+ + + + + | 06/08/ | Office | Physical Medicine | Rocky Santos, | | | 2019 | Visit | and Rehabilitation | [address] | | | | | | [place] | | | | | | [address] | | | | | | | | +--------+ + + + + | 06/16/ | Appointment | Pulmonology | Eveline Jaffe | | | 2019 | | | MD [address] | | | | | | [address] [place] | | | | | | [place] [address] | | | | | | [phone] | | | | | | | | +--------+ + + + + | 06/16/ | Office | Pulmonology | Eveline Jaffe | | | 2019 | Visit | | MD [address] | | | | | | [address] [place] | | | | | | [place] [address] | | | | | | [phone] | | | | | | | | +--------+ + + + + | 08/24/ | Office | Cardiology | Anisha Lopez DO | | | 2019 | Visit | | [address] | | | | | | [place] | | | | | | [address] | | | | | | | [...]
--- OUTSIDE RECORDS SUMMARY | ~2019-05-05 | XMS | Encounter Summary ---
Demographics + + + | Address | [address] | | | [place] [address] | + + + | Home Phone [...] [place] | | | | | [address] | | + + + + + Care Team Providers + +------+ + | Care Field Spec Name | Role | Phone | + [...] | | | hand, | | [place] [address] | | | | | unspecified | | Phone: | | | | | osteoarthrit | | [phone] | | | | | is type | | Fax: | | | | | Osteoarthrit | | [phone] | | | | | is of [...] | | | | | | MA REPAIR | | | | | | | INTERCARP/CA | | | | | | | RP-METACARP | | | | | | | JT | | | +--------+--------+ + + + + Encounter Details +--------+ + + + + | Date | Type | Department | Care Team | Description | +--------+ + + + + | 03/20/ | Hospital | [facility] | Giuliano Padilla, | | | 2014 | Encounter | MED CTR OR INTRA OP | [address] [facility] | | | | | [address] | [place] | | | | | [place] | [address] | | | | | [address] | | | | | | [phone] | | | +--------+ + + + [...] | | | | | [place] [address] | | | | | | [phone] | | | | | | | | +--------+ + + + + | 06/08/ | Office | Physical Medicine | Rocky Santos, | | | 2019 | Visit | and Rehabilitation | MD Nichole Landis | | | | | | [place] | | | | | | [address] | | | | | | | | +--------+ + + + + | 06/16/ | Appointment | Pulmonology | Eveline Jaffe | | 2019 | | | MD Nichole Carter [address] | | | | | | [address] | | | | | | [place] [address] | | | | | | [phone] | | | | | | | | +--------+ + + + + | 06/16/ | Office | Pulmonology | Eveline Jaffe | | | 2019 | Visit | | MD Raul [address] | | | | | | [address] | | | | | | [place] [address] | | | | | | [phone] | | | | | | | | +--------+ + + + + | 08/24/ | Office | Cardiology | Anisha Lopez DO | | | 2019 | Visit | | [address] | | | | | | [place] | | | | | | [address] | | | | | | | [...]
--- OUTSIDE RECORDS SUMMARY | ~2019-05-05 | XMS | Encounter Summary ---
Demographics + + + | Address | [address] | | | [place] [address] | + + + | Home Phone [...] [place] | | | | | [address] | | + + + + + Care Team Providers + +------+ + | Care Business Development Specialist Name | Role | Phone | + +------+ + | Davis Ivan MD | PCP | | + +------+ + Encounter Details +--------+ + + + + | Date | Type | Department | Care Team | Description | +--------+ + + + + | 02/07/ | Hospital | [facility] | Alfredenstein, | COPD (chronic | | 2013 | Encounter | MED CTR PULMONARY | Ayana Looney MD | obstructive | | | | FUNCTION [address] | | pulmonary disease) | | | | [place], | | | | | | [place] [address] | | | | | | [phone] | | | +--------+ + + + [...] | | | | | [place] [address] | | | | | | [phone] | | | | | | | | +--------+ + + + + | 06/08/ | Office | Physical Medicine | Rocky aSntos, | | | 2019 | Visit | and Rehabilitation | MD Nichole Landis | | | | | | [place] | | | | | | [address] | | | | | | | | +--------+ + + + + | 06/16/ | Appointment | Pulmonology | Eveline Jaffe | | 2019 | | | MD Nichole Carter | | | | | | [address] | | | | | | [place] [address] | | | | | | [phone] | | | | | | | | +--------+ + + + + | 06/16/ | Office | Pulmonology | Eveline Jaffe | | | 2019 | Visit | | MD Raul [address] | | | | | | [address] [place] | | | | | | [place] [address] | | | | | | [phone] | | | | | | | | +--------+ + + + + | 08/24/ | Office | Cardiology | Anisha Lopez DO | | | 2019 | Visit | | [address] | | | | | | [place] | | | | | | [address] | | | | | | | [...] PFT PULMONARY FUNCTION TESTING ORDERS Full PFT ([place] w/BD, lung volumes, diffusion)?: Yes (02/09/2014 9:04 [...] | | Ayana Taylor MD 02/09/2014 9:00 [facility] | | | [facility] CC: Gurvinderescobarvivienne Ivan | | + + [...] Ayana Taylor MD [facility]/09[facility]2014 [facility] | |[facility] | | | |CC: Davis Ivan [...]
--- OUTSIDE RECORDS SUMMARY | ~2019-05-05 | XMS | Encounter Summary ---
Demographics + + + | Address | [address] | | | [place] [address] | + + + | Home Phone [...] [place] | | | | | [address] | | + + + + + Care Team Providers + +------+ + | Care Caregivers Homecare Name | Role | Phone | + [...] Looney MD | | | | | [place], | | | | | | [place] [address] | | | | | | [phone] | | | +--------+ + + + [...] | | | | | [place] [address] | | | | | | [phone] | | | | | | | | +--------+ + + + + | 06/08/ | Office | Physical Medicine | Rocky Santos, | | | 2019 | Visit | and Rehabilitation | MD [address]are[address] | | | | | | [place] | | | | | | [address] | | | | | | | | +--------+ + + + + | 06/16/ | Appointment | Pulmonology | Eveline Jaffe | | 2019 | | | MD Nichole Carter [address] | | | | | | [address] | | | | | | [place] [address] | | | | | | [phone] | | | | | | | | +--------+ + + + + | 06/16/ | Office | Pulmonology | Eveline Jaffe | | | 2019 | Visit | | MD Raul [address] | | | | | | [address] [address] | | | | | | [place] [address] | | | | | | [phone] | | | | | | | | +--------+ + + + + | 08/24/ | Office | Cardiology | Anisha Lopez DO | | | 2019 | Visit | | [address] | | | | | | [place] | | | | | | [address] | | | | | | | | +--------+ + + + + documented as of this encounter Visit Diagnoses + + | Diagnosis | + + | Cough - Primary | + + documented in this encounter"
--- OUTSIDE RECORDS SUMMARY | ~2019-05-05 | XMS | Encounter Summary ---
Demographics + + + | Address | [address] | | | [place] [address] | + + + | Home Phone [...] [place] | | | | | [address] | | + + + + + Care Team Providers + +------+ + | Care Manual Equipment Mechanic Name | Role | Phone [...] | Bilateral | Offenstein, | [address] | | | | | leg edema | Precious B, | [place], | | | | | Procedures | MD [address] | [place] | | | | | ECHO | [address] | [address] | | | | | Complete | [place], | Phone: | | | | | | [place] [address] | [phone] | | | | | | | Fax: | | | | | | | [phone] | +--------+--------+ + + + + Reason [...] | Bilateral | Offenstein, | [address] | | | | | leg edema | Precious Looney, | [place], | | | | | Procedures | MD [address] | [place] | | | | | ECHO | [address] | [address] | | | | | Complete | [place], | Phone: | | | | | | [place] [address] | [phone] | | | | | | | Fax: | | | | | | | [phone] | +--------+--------+ + + + + Encounter Details +--------+ + + + + | Date | Type | Department | Care Team | Description | +--------+ + + + + | 11/29/ | Hospital | [facility] | Offenstein, | Bilateral leg edema | | 2016 | Encounter | MED CTR ECHO [address] | Precious Looney MD | | | | | [address] [place] | [place], | | | | | [place] [address] | Technologist | | | | | [phone] | | | +--------+ + + + [...] | | | | | | [place] [address] | | | | | | [phone] | | | | | | | | +--------+ + + + + | 06/08/ | Office | Physical Medicine | Rocky Santos, | | | 2019 | Visit | and Rehabilitation | MD [address] | | | | | | [place] | | | | | | [address] | | | | | | | | +--------+ + + + + | 06/16/ | Appointment | Pulmonology | Eveline Jaffe | | 2019 | | | MD Nichole Carter [address] | | | | | | [address] | | | | | | [place] [address] | | | | | | [phone] | | | | | | | | +--------+ + + + + | 06/16/ | Office | Pulmonology | Eveline Jaffe | | | 2019 | Visit | | MD Raul [address] | | | | | | [place] | | | | | | [place] [address] | | | | | | [phone] | | | | | | | | +--------+ + + + + | 08/24/ | Office | Cardiology | Anisha Lopez DO | | | 2019 | Visit | | [address] | | | | | | [place] | | | | | | [address] | | | | | | | [...] Report (TTE) Demographics Patient Name GRISELDA | [facility] | [facility] Room Number YOLANDA Patient | [facility] | | Number [id number] Date of Study 11/30/2015 | - IMAGING | | Visit Number [id number] | | | Referring Physician OUSMANE PRECIOUS Number | | | B Date of | | | 1945 Test Bore Helper HOLLEY JOE | | | | | | RDS Age 70 year(s) | | | Suzanne HAIDER | | | Security Sergeant LUIS | | | | | | [...] Room Number YOLANDA | | Patient Number [id number] Date of Study 11/30/2015 Visit Number | | [id number] Referring Physician OUSMANE LANG | | Number B Date of 1945 | | Test Bore Helper HOLLEY MARTE | | RDS Age 70 year(s) Interpreting NOMAN HAIDER | | Security Sergeant LUIS | | LUIS TINEO MD Gender [...] + | [facility] | [address] | [place] | [phone] | | [facility] | | [address] | | | - IMAGING | | [...]
--- OUTSIDE RECORDS SUMMARY | ~2019-05-05 | XMS | Encounter Summary ---
Demographics + + + | Address | [address] | | | [place] [address] | + + + | Home Phone [...] [place] | | | | | [address] | | + + + + + Care Team Providers + +------+ + | Care International Sales Manager Name | Role | Phone | [...] [place] | | | | | [phone] | [place] [address] | | +--------+ + + + + [...] | | | | | [place] [address] | | | | | | [phone] | | | | | | | | +--------+ + + + + | 06/08/ | Office | Physical Medicine | Rocky Santos, | | | 2019 | Visit | and Rehabilitation | MD Nichole Landis | | | | | | [place] | | | | | | [address] | | | | | | | | +--------+ + + + + | 06/16/ | Appointment | Pulmonology | Eveline Jaffe | | 2019 | | | MD Nichole Carter [address] | | | | | | [address] | | | | | | [place] [address] | | | | | | [phone] | | | | | | | | +--------+ + + + + | 06/16/ | Office | Pulmonology | Eveline Jaffe | | | 2019 | Visit | | MD Raul [address] | | | | | | [address] | | | | | | [place] [address] | | | | | | [phone] | | | | | | | | +--------+ + + + + | 08/24/ | Office | Cardiology | Anisha Lopez DO | | | 2019 | Visit | | [address] | | | | | | [place] | | | | | | [address] | | | | | | | [...]
--- OUTSIDE RECORDS SUMMARY | ~2019-05-05 | XMS | Encounter Summary ---
Demographics + + + | Address | [address] | | | [place] [address] | + + + | Home Phone [...] [place] | | | | | [address] | | + + + + + Care Team Providers + +------+ + | Care Phthalic Acid Purifier Name | Role | Phone | + [...] Looney MD | | | | | [place], | | | | | | [place] [address] | | | | | | [phone] | | | +--------+ + + + [...] | | | | | [place] [address] | | | | | | [phone] | | | | | | | | +--------+ + + + + | 06/08/ | Office | Physical Medicine | Rocky Santos, | | | 2019 | Visit | and Rehabilitation | MD [address] | | | | | | [place] | | | | | | [address] | | | | | | | | +--------+ + + + + | 06/16/ | Appointment | Pulmonology | Eveline Jaffe | | 2019 | | | MD Nichole Carter W | | | | | | [address] | | | | | | [place] [address] | | | | | | [phone] | | | | | | | | +--------+ + + + + | 06/16/ | Office | Pulmonology | Eveline Jaffe | | | 2019 | Visit | | MD Raul [address] | | | | | | [place] [address] | | | | | | [place] [address] | | | | | | [phone] | | | | | | | | +--------+ + + + + | 08/24/ | Office | Cardiology | Anisha Lopez DO | | | 2019 | Visit | | [address] | | | | | | [place] | | | | | | [address] | | | | | | | | +--------+ + + + + documented as of this encounter Visit Diagnoses + + | Diagnosis | + + | Cough - Primary | + + documented in this encounter"
--- OUTSIDE RECORDS SUMMARY | ~2019-05-05 | XMS | Encounter Summary ---
Demographics + + + | Address | [address] | | | [place] [address] | + + + | Home Phone [...] [place] | | | | | [address] | | + + + + + Care Team Providers + +------+ + | Care Field Captain Name | Role | Phone | + +------+ + | Davis Ivan MD | PCP | | + +------+ + Encounter Details +--------+ + + + + | Date | Type | Department | Care Team | Description | +--------+ + + + + | 01/31/ | Hospital | [facility] | Conversion | Back pain | | 2013 | Encounter | CONVERSION [address] | Transaction, | | | | | [address] | Provider Unknown | | | | | [place] | [phone] | | | | | [address] | | | | | | [phone] | | | +--------+ + + + [...] | | | | | [place] [address] | | | | | | [phone] | | | | | | | | +--------+ + + + + | 06/08/ | Office | Physical Medicine | Rocky Santos, | | | 2019 | Visit | and Rehabilitation | MD Nichole Landis | | | | | | [place] | | | | | | [address] | | | | | | | | +--------+ + + + + | 06/16/ | Appointment | Pulmonology | Eveline Jaffe | | 2019 | | | MD Nichole Carter W | | | | | | [address] | | | | | | [place] [address] | | | | | | [phone] | | | | | | | | +--------+ + + + + | 06/16/ | Office | Pulmonology | Eveline Jaffe | | | 2019 | Visit | | MD Raul [address] | | | | | | [address] | | | | | | [place] [address] | | | | | | [phone] | | | | | | | | +--------+ + + + + | 08/24/ | Office | Cardiology | Anisha Lopez DO | | | 2019 | Visit | | [address] | | | | | | [place] | | | | | | [address] | | | | | | | [...]
--- OUTSIDE RECORDS SUMMARY | ~2019-05-05 | XMS | Encounter Summary ---
Demographics + + + | Address | [address] | | | [place] [address] | + + + | Home Phone [...] [place] | | | | | [address] | | + + + + + Care Team Providers + +------+ + | Care Civil Cad Designer Name | Role | Phone | [...] W | | | | | | [place], | | | | | | [place] [address] | | | | | | [phone] | | | +--------+ + + + [...] encounter Progress Notes Keyana Jacques OT - [facility] [address] [place] [address] Oncology Rehab Screening Date: 08/07/2014 Patient Information [...] [facility], however, it is this therapist's opinion [...] | | | | | [place] [address] | | | | | | [phone] | | | | | | | | +--------+ + + + + | 06/08/ | Office | Physical Medicine | Rocky Santos, | | | 2019 | Visit | and Rehabilitation | MD Nichole Landis | | | | | | [place] | | | | | | [address] | | | | | | | | +--------+ + + + + | 06/16/ | Appointment | Pulmonology | Eveline Jaffe | | 2019 | | | MD Nichole Carter W | | | | | | [address] [address] | | | | | | [place] [address] | | | | | | [phone] | | | | | | | | +--------+ + + + + | 06/16/ | Office | Pulmonology | Eveline Jaffe | | | 2019 | Visit | | MD Raul [address] | | | | | | [place] | | | | | | [place] [address] | | | | | | [phone] | | | | | | | | +--------+ + + + + | 08/24/ | Office | Cardiology | Anisha Lopez DO | | | 2019 | Visit | | [address] | | | | | | [place] | | | | | | [address] | | | | | | | | +--------+ + + + + documented as of this encounter Visit Diagnoses Not on filedocumented in this encounter"
--- OUTSIDE RECORDS SUMMARY | ~2019-05-05 | XMS | Encounter Summary ---
Demographics + + + | Address | [address] | | | [place] [address] | + + + | Home Phone [...] [place] | | | | | [address] | | + + + + + Care Team Providers + +------+ + | Care Bushing And Broach Operator Name | Role | Phone | + +------+ + | Davis Ivan MD | PCP | | + +------+ + Reason for Visit + + + | Reason | Comments | + + + | Hospital Follow-up | | + + + Encounter Details +--------+ + + + + | Date | Type | Department | Care Team | Description | +--------+ + + + + | 10/07/ | Telephone | [facility] | Jf Bahena, | Hospital Follow-up | | 2015 | | MED [facility] | [facility] [address] | | | | | [address] [place] | [place], [place] | | | | | [place] [address] | [address] | | | | | [phone] | | | +--------+ + + + [...] | 2018 | Visit | | [address] | | | | | | [facility] | | | | | | [place] [address] | | | | | | [phone] | | | | | | | | +--------+ + + + + | 06/08/ | Office | Physical Medicine | Rocky Santos, | | | 2019 | Visit | and Rehabilitation | [address] | | | | | | [place] | | | | | | [address] | | | | | | | | +--------+ + + + + | 06/16/ | Appointment | Pulmonology | Eveline Jaffe | | | 2019 | | | MD Nichole Carter | | | | | | [address] [place] | | | | | | [place] [address] | | | | | | [phone] | | | | | | | | +--------+ + + + + | 06/16/ | Office | Pulmonology | Eveline Jaffe | | | 2019 | Visit | | MD Nichole Carter | | | | | | [address] [place] | | | | | | [place] [address] | | | | | | [phone] | | | | | | | | +--------+ + + + + | 08/24/ | Office | Cardiology | Anisha Lopez DO | | | 2019 | Visit | | [address] | | | | | | [place] | | | | | | [address] | | | | | | | | +--------+ + + + + documented as of this encounter Visit Diagnoses Not on filedocumented in this encounter"
--- OUTSIDE RECORDS SUMMARY | ~2019-05-05 | XMS | Encounter Summary ---
Demographics + + + | Address | [address] | | | [place] [address] | + + + | Home Phone [...] [place] | | | | | [address] | | + + + + + Care Team Providers + +------+ + | Care Retail Security Professional Name | Role | Phone | [...] Ed[place] | | | | | [phone] | [place] [address] | | +--------+ + + + + [...] | | | | | | [place] [address] | | | | | | [phone] | | | | | | | | +--------+ + + + + | 06/08/ | Office | Physical Medicine | Rocky Santos, | | | 2019 | Visit | and Rehabilitation | MD Nichole Landis | | | | | | [place] | | | | | | [address] | | | | | | | | +--------+ + + + + | 06/16/ | Appointment | Pulmonology | Eveline Jaffe | | 2019 | | | MD Nichole Carter [address] | | | | | | [address] | | | | | | [place] [address] | | | | | | [phone] | | | | | | | | +--------+ + + + + | 06/16/ | Office | Pulmonology | Eveline Jaffe | | | 2019 | Visit | | MD Raul [address] | | | | | | [address] | | | | | | [place] [address] | | | | | | [phone] | | | | | | | | +--------+ + + + + | 08/24/ | Office | Cardiology | Anisha Lopez DO | | | 2019 | Visit | | [address] | | | | | | [place] | | | | | | [address] | | | | | | | [...]
--- OUTSIDE RECORDS SUMMARY | ~2019-05-05 | XMS | Clinical Summary ---
Demographics + + + | Address | [address] | | | [place] [address] | + + + | Home Phone | | + + + | Preferred Language | Unknown | + + + | Marital Status | | + + + | Congregation Affiliation | Unknown | + + + | Race | Unknown | + + + | Ethnic Group | Unknown | + + + Author + + + | Author | [facility] [email or web address] (Historical as of | | | 01-15-19) | + + + | Organization | [email or web address] (Historical as of | | | 01-15-19) [...] Team Providers + +------+ + | Care Cushion Former Name | Role | Phone | [...] + + | CVA (cerebral vascular accident) ([facility]) | 12/14/2018 | + + + | [...] | 2.CT-guided biopsy by interventional radiology at [facility] of the | | right lung massshows [...] Beltran , thoracic surgeon at | | [facility] for consideration of bronchoscopy, right | | [...] in August 20149. | | Admitted to [facility] on September 27, 2014 for | | right-sided chest pain secondary to acute bronchitis.10. CT chest | | [facility] on September 28, 2014 demonstrated persistent | | 32 mm x 26 mm x 27 mm Right Hilar Mass.Last Assessment & Plan: | | Stephanie returned to the [facility] | | on November 09, 2014 for follow up of her locally recurrent RIGHT | | Lung cancer. Interval history is notable for the fact that Thea | | was admitted to [facility] in [place], [place] for | | acute exacerbation of chronic bronchitis. During her | | hospitalization there, a chest CT was performed demonstrating a | | persistent 32 x 26 mm right hilar mass. These images were | | reviewed subsequently at the [facility] on their PACS | | system. [...] | | persistent disease. PET/CT schedule at [facility] on December 21, 2014 | | with follow up at [facility] the following week. | + + + [...] | N/A: | | | 08/20/ | [id number] | | Dbx 2.5ml - | | Spine | | | 2015 | | | [id number]: | | Cervic | | | | /[id number] | | Qty: 1 on 01/19/2013 by | | joann | | | | 435752 | | Silviano Cabrera MD | | | | | | 954886 | | | | | | | | 8 / | + +------+--------+ +--------+--------+--------+ | Cage Triad Allograft | | N/A: | | | 08/16/ | [id number] | | [id number] | | Spine | | | 2018 | 7 | | [id number]: Qty: 1 | | Cervic | | | | /10334 | | on 01/19/2013 by Rick, | Tim david | | | | 8-185 | | MD Silviano | | | | | | / | + +------+--------+ +--------+--------+--------+ | Cage Triad Allograft 6mm - | | N/A: | | | 06/23/ | [id number] | | [id number]: Qty: 1 | | Spine | | | 2018 | 6 | | on 01/19/2013 by Rick, | | Cervic | | | | /22664 | | MD Silviano | | al | | | | 0-206 | | | | | | | | / | + +------+--------+ +--------+--------+--------+ | Screw Vectra Self Drilling | | N/A: | | | | 04.613 | | Variable Angle 4.0x14mm - | | Spine | | | | .514 | | [id number]: Qty: 2 on | | Cervic | | | | /70491 | | 01/19/2013 by Silviano Cabrera, | | al | | | | 514 / | | MD | | | | | | | + +------+--------+ +--------+--------+--------+ | Screw Vectra Self Drilling | | N/A: | | | | 04.613 | | Variable Angle 4uje12fz - | | Spine | | | | .516 | | [id number]: Qty: 2 on | | Cervic | | | | /32367 | | 01/19/2013 by Silviano Cabrera, | | al | | | | 516 / | | MD | | | | | | | + +------+--------+ +--------+--------+--------+ | Screw Vectra Self Drilling | | N/A: | | | | 04.613 | | Fixed Angle 4.0x14mm - | | Spine | | | | .714 | | [id number]: Qty: 2 on | | Cervic | | | | /17229 | | 01/19/2013 by Silviano Cabrera, | | al | | | | 714 / | | MD | | | | | | | + +------+--------+ +--------+--------+--------+ | Plate Vectra Cervical 30mm - | | N/A: | | | | 04.613 | | [id number]: Qty: 1 on | | Spine | | | | .130 | | 01/19/2013 by Silviano Cabrera, | | Cervic | | | | /17478 | | MD | | al | | | | 130 / | + +------+--------+ +--------+--------+--------+ | Allograft Putty Freeze Dried | | N/A: | | | 10/20/ | 144585 | | Dbx 2.5ml - | | Spine | | | 2014 | | | [id number]: | | Cervic | | | | /82177 | | Qty: 1 on 04/06/2013 by | | al | | | | 133527 | | Silviano Cabrera MD | | | | | | 110606 | | | | | | | | 3 / | + +------+--------+ +--------+--------+--------+ | Screw Vuepoint Post Cerv | | N/A: | | | | 739952 | | 3.5x12mm - [id number]: | | Spine | | | | 2 | | Qty: 3 on 04/06/2013 by | | Altagraciaic | | | | /27257 | | Silviano Cabrera MD | | al | | | | 12 / | + +------+--------+ +--------+--------+--------+ | Screw Vuepoint Post Cerv | | N/A: | | | | 208883 | | 3.5x14mm - [id number]: | | Spine | | | | 4 | | Qty: 1 on 04/06/2013 by | | Cervic | | | | /80859 | | Silviano Cabrera MD | | al | | | | 14 / | + +------+--------+ +--------+--------+--------+ | Srini Vuepoint 3.5x60mm - | | N/A: | | | | 599854 | | [id number]: Qty: 1 on | | Spine | | | | 0 | | 04/06/2013 by Silviano Cabrera, | | Cervic | | | | /76162 | | MD | | al | | | | 60 / | + +------+--------+ +--------+--------+--------+ | Screw Vuepoint Post Cerv Set | | N/A: | | | | [id number] | | Tulip & Hook - | | Spine | | | | 0 | | [id number]: Qty: 4 on | | Cervic | | | | /49791 | | 04/06/2013 by Silviano Cabrera, | | al | | | | 00 / | | MD | | | | | | | + +------+--------+ +--------+--------+--------+ | Allograft Osteocell 10cc | | | | | 08/25/ | [id number] | | [id number] - | | | | | 2018 | 0 | | [id number]: Qty: 1 | | | | | | /14395 | | on 04/06/2013 | | | | | | 1542 / | + +------+--------+ +--------+--------+--------+ | Allograft Putty Freeze Dried | | N/A: | | | 11/10/ | [id number] | | Demineralized Bone Matrix Dbx | | Spine | | | 2014 | | | 1ml - | | Cervic | | | | /61820 | | [id number]: | | al | | | | [id number] | | Qty: 1 on 04/06/2013 by | | | | | | 306947 | | Silviano Cabrera MD | | | | | | 1 / | + +------+--------+ +--------+--------+--------+ | Graft Sponge Kit Bone Infuse | | | MEDTRONIC | | | 566704 | | Medium 56ml - | | | | | | 0 / | | [id number]: Qty: 1 on | | | | | | /[id number] | | 03/29/2014 by Silviano Cabrera, | | | | | | 05AA6 | | MD | | | | | | | + +------+--------+ +--------+--------+--------+ | Triad Alif Allograft | | | NUVASIVE | | 08/02/ | 776657 | | [id number]: Qty: 1 on | | | | | 2018 | 4 | | 03/29/2014 by Silviano Cabrera, | | | | | | /26700 | | MD | | | | | | 0-065 | | | | | | | | / | + +------+--------+ +--------+--------+--------+ | Screw Brigade 5.5x25mm - | | | NUVASIVE | | | 337372 | | [id number]: Qty: 2 on | | | | | | / / | | 03/29/2014 by Silviano Cabrera, | | | | | | | | MD | | | | | | | + +------+--------+ +--------+--------+--------+ | Screw Brigade 5.5x30mm - | | | NUVASIVE | | | [id number] | | [id number]: Qty: 4 on | | | | | | 0 / / | | 03/29/2014 by Silviano Cabrera, | | | | | | | | MD | | | | | | | + +------+--------+ +--------+--------+--------+ | Evelyne Batista Allograft | | | NUVASIVE | | 07/14/ | [id number] | | [id number] - | | | | | 2012 | 2 / / | | [id number]: Qty: 1 on | | | | | | | | 03/29/2014 by Silviano Cabrera, | | | | | | | | MD | | | | | | | + +------+--------+ +--------+--------+--------+ | Svetlana Iraheta 5.5x35mm - | | | NUVASIVE | | | 406006 | | [id number]: Qty: 2 on | | | | | | 5 / / | | 03/29/2014 by Silviano Cabrera, | | | | | | | | MD | | | | | | | + +------+--------+ +--------+--------+--------+ | Allograft Block Extra Large | | N/A: | NUVASIVE | | 09/27/ | [id number] | | Formagraft Large - | | Back | | | 2018 | 5 / | | [id number]: Qty: 1 on | | | | | | /FG-14 | | 03/29/2014 by Silviano Cabrera, | | | | | | 13 | | MD | | | | | | | + +------+--------+ +--------+--------+--------+ | Graft Sponge Kit Bone Infuse | | N/A: | MEDTRONIC | | 08/27/ | [id number] | | Large 8ml - | | Back | | | 2015 | 0 / | | [id number]: Qty: 1 on | | | | | | /M1112 | | 03/29/2014 by Silviano Cabrera, | | | | | | 06AAY | | | | | | | | | + +------+--------+ +--------+--------+--------+ | Allograft Freeze Dried | | N/A: | LIFENET | | 11/13/ | [id number] | | Demineralized Cancellous Mix | | Spine | HEALTH | | 2016 | T | | Ic Graft Chamber 15cc - | | Lumbar | | | | /93368 | | [id number]: Qty: | | | | | | 57-303 | | 1 on 03/31/2014 by Rick, | | | | | | 1 / | | MD Silviano | | | | | | | + +------+--------+ +--------+--------+--------+ | Graft Sponge Kit Bone Infuse | | N/A: | MEDTRONIC | | 04/01/ | [id number] | | Medium 56ml - | | Spine | | | 2014 | 0 | | [id number]: Qty: 1 | | Lumbar | | | | /[id number] | | on 03/31/2014 by Rick, | | | | | | 05AAW | | MD Silviano | | | | | | / | + +------+--------+ +--------+--------+--------+ | Allograft Freeze Dried | | N/A: | LIFENET | | 11/01/ | [id number] | | Demineralized Cancellous Mix | | Spine | HEALTH | | 2016 | T | | Ic Graft Chamber 15cc - | | Lumbar | | | | /54879 | | [id number]: Qty: | | | | | | 37-301 | | 1 on 03/31/2014 by Rick, | | | | | | 1 / | | MD Silviano | | | | | | | + +------+--------+ +--------+--------+--------+ | Screw Precept Shank Mod | | N/A: | NUVASIVE | | | [id number] | | 7.5x50mm - [id number]: | | Spine | | | | 0 / / | | Qty: 4 on 03/31/2014 by | | Lumbar | | | | | | Silviano Cabrera MD | | | | | | | + +------+--------+ +--------+--------+--------+ | Screw Precept Shank Mod | | N/A: | NUVASIVE | | | [id number] | | 6.5x50mm - [id number]: | | Spine | | | | 0 / / | | Qty: 2 on 03/31/2014 by | | Lumbar | | | | | | Silviano Cabrera MD | | | | | | | + +------+--------+ +--------+--------+--------+ | Screw Locking For 6.25mm Srini | | N/A: | NUVASIVE | | | [id number] | | - [id number]: Qty: 6 | | Spine | | | | 1 / / | | on 03/31/2014 by Rick, | | Lumbar | | | | | | MD Silviano | | | | | | | + +------+--------+ +--------+--------+--------+ | Screw Tulip For 6.25mm Srini - | | N/A: | NUVASIVE | | | [id number] | | [id number]: Qty: 6 on | | Spine | | | | 2 / / | | 03/31/2014 by Silviano Cabrera, | | Lumbar | | | | | | | | | | | | | + +------+--------+ +--------+--------+--------+ | Allograft Freeze Dried | | N/A: | LIFENET | | 11/08/ | [id number] | | Demineralized Cancellous Mix | | Spine | HEALTH | | 2017 | T | | Ic Graft Chamber 15cc - | | Lumbar | | | | /97337 | | [id number]: Qty: | | | | | | 98-303 | | 1 on 03/31/2014 by Rick, | | | | | | 9 / | | MD Silviano | | | | | | | + +------+--------+ +--------+--------+--------+ | Allograft Freeze Dried | | N/A: | LIFENET | | 08/16/ | [id number] | | Demineralized Cancellous Mix | | Spine | HEALTH | | 2016 | T | | Ic Graft Chamber 10cc - | | Lumbar | | | | /49243 | | [id number]: Qty: | | | | | | 22-301 | | 1 on 03/31/2014 by Rick, | | | | | | 3 / | | MD Silviano | | | | | | | + +------+--------+ +--------+--------+--------+ | Allograft Freeze Dried | | N/A: | LIFENET | | 07/13/ | [id number] | | Demineralized Cancellous Mix | | Spine | HEALTH | | 2016 | T | | Ic Graft Chamber 5cc - | | Lumbar | | | | /65241 | | [id number]: Qty: | | | | | | 40-301 | | 1 on 03/31/2014 by Rick, | | | | | | 1 / | | MD Silviano | | | | | | | + +------+--------+ +--------+--------+--------+ | Srini Spherx Dual Ball Ti Dbr | | N/A: | NUVASIVE | | | [id number] | | Ii 42.5mm - | | Spine | | | | / | | [id number]: Qty: 2 on | | Lumbar | | | | | | 03/31/2014 by Silviano aCbrera, | | | | | | | [...] [place] - [place] | [place] - | [id number] | Medica | | | | | [...] +--------+-------+ + | MEDICAID | EASTER | [id number] | | | [address] | | | N | | | | [place] | | | [place] | | | | [address] | | | HARB[employer] DEPARTMENT MANAGER | | | | | + +--------+ [...] | | al/Fam | | 1945 | [phone] | [place] | | | jana | | | [phone] | [address] | + +--------+ +--------+ + +
--- OUTSIDE RECORDS SUMMARY | ~2019-05-05 | XMS | Encounter Summary ---
Demographics + + + | Address | [address] | | | [place] [address] | + + + | Home Phone [...] [place] | | | | | [address] | | + + + + + Care Team Providers + +------+ + | Care Makeup Artistry Instructor Name | Role | Phone | [...] + + | 03/09/ | Refill | [facility] | Anahy Forbes RN | Medication Refill | | 2014 | | [facility] [address] | | | | | | [address] | | | | | | [place] [address] | | | | | | [phone] | | | +--------+--------+ + + + [...] | | | | | [place] [address] | | | | | | [phone] | | | | | | | | +--------+ + + + + | 06/08/ | Office | Physical Medicine | Rocky Santos, | | | 2019 | Visit | and Rehabilitation | [address] | | | | | | [place] | | | | | | [address] | | | | | | | | +--------+ + + + + | 06/16/ | Appointment | Pulmonology | Eveline Jaffe | | | 2019 | | | MD [address] | | | | | | [address] [place] | | | | | | [place] [address] | | | | | | [phone] | | | | | | | | +--------+ + + + + | 06/16/ | Office | Pulmonology | Eveline Jaffe | | | 2019 | Visit | | MD [address] | | | | | | [address] [place] | | | | | | [place] [address] | | | | | | [phone] | | | | | | | | +--------+ + + + + | 08/24/ | Office | Cardiology | Anisha Lopez DO | | | 2019 | Visit | | [address] | | | | | | [place] | | | | | | [address] | | | | | | | | +--------+ + + + + documented as of this encounter Visit Diagnoses + + | Diagnosis | + + | Gastroesophageal reflux disease without esophagitis - Primary Esophageal reflux | + + documented in this encounter"
--- OUTSIDE RECORDS SUMMARY | ~2019-05-05 | XMS | Encounter Summary ---
Demographics + + + | Address | [address] | | | [place] [address] | + + + | Home Phone [...] [place] | | | | | [address] | | + + + + + Care Team Providers + +------+ + | Care Section Forest Fire Warden Name | Role | Phone | + [...] + + | 08/11/ | Telephone | [facility] [place] [place] | Offenstein, | Other (issues with | | 2014 | | CARDIOLOGY [address] | Ayana Looney MD | shortness of breath | | | | [place], | | and "panic attacks") | | | | [place] [address] | | | | | | [phone] | | | +--------+ + + + [...] | 2018 | Visit | | [address] | | | | | | [facility] | | | | | | [place] [address] | | | | | | [phone] | | | | | | | | +--------+ + + + + | 06/08/ | Office | Physical Medicine | Rocky Santos, | | | 2019 | Visit | and Rehabilitation | MD [address] | | | | | | [place] | | | | | | [address] | | | | | | | | +--------+ + + + + | 06/16/ | Appointment | Pulmonology | Eveline Jaffe | | 2019 | | | MD [address] | | | | | | [address] [place] | | | | | | [place] [address] | | | | | | [phone] | | | | | | | | +--------+ + + + + | 06/16/ | Office | Pulmonology | Eveline Jaffe | | | 2019 | Visit | | MD [address] | | | | | | [address] [place] | | | | | | [place] [address] | | | | | | [phone] | | | | | | | | +--------+ + + + + | 08/24/ | Office | Cardiology | Anisha Lopez DO | | | 2020 | Visit | | [address] | | | | | | [place] | | | | | | [address] | | | | | | | | +--------+ + + + + documented as of this encounter Visit Diagnoses Not on filedocumented in this encounter
--- OUTSIDE RECORDS SUMMARY | ~2019-05-05 | XMS | Encounter Summary ---
Demographics + + + | Address | [address] | | | [place] [address] | + + + | Home Phone [...] [place] | | | | | [address] | | + + + + + Care Team Providers + +------+ + | Care Hr Intern Name | Role | Phone | [...] + + | 08/29/ | Hospital | 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 | | | | INFUSION [address] | [place], [place] | lung, unspecified | | | | [place], | [address] | laterality (HCC) | | | | [place] [address] | [phone] | | | | | [phone] | | | +--------+ + + + [...] encounter Progress Notes Miladis Costello RN - 08/29/2014 12:57 PM PDTPt arrived via WC by plc technician accessed and deaccessed per protocol discharged in stable condition with family documented in this encounter Plan of Treatment +--------+ + + + + | Date | Type | Specialty | Care Team | Description | +--------+ + + + + | 05/30/ | Office | Rheumatology | Santosh Sumner, | | | 2018 | Visit | | [address] | | | | | | [facility] | | | | | | [place] [address] | | | | | | [phone] | | | | | | | | +--------+ + + + + | 06/08/ | Office | Physical Medicine | Rocky Santos, | | | 2019 | Visit | and Rehabilitation | MD [address] | | | | | | [place] | | | | | | [address] | | | | | | | | +--------+ + + + + | 06/16/ | Appointment | Pulmonology | Eveline Jaffe | | | 2019 | | | MD [address] | | | | | | [address] [place] | | | | | | [place] [address] | | | | | | [phone] | | | | | | | | +--------+ + + + + | 06/16/ | Office | Pulmonology | Eveline Jaffe | | | 2019 | Visit | | MD [address] | | | | | | [address] [place] | | | | | | [place], [place] [address] | | | | | | [phone] | | | | | | | | +--------+ + + + + | 08/24/ | Office | Cardiology | Anisha Lopez DO | | | 2019 | Visit | | [address] | | | | | | [place] | | | | | | [address] | | | | | | | [...] 100 units/mL flush 500 | Given | 08/30/19 | 500 | | | | Units 500 Units (5 mL), | | 15 12:57 | Units | | | | Intracatheter, PRN, Line Care, | | PM PDT | | | | | Starting 08/29/14 at 1250 | | | | | | + +--------+ +-------+------+------+ +---+---+ | | | +---+---+ documented in this encounter"
--- OUTSIDE RECORDS SUMMARY | ~2019-05-05 | XMS | Encounter Summary ---
Demographics + + + | Address | [address] | | | [place] [address] | + + + | Home Phone [...] [place] | | | | | [address] | | + + + + + Care Team Providers + +------+ + | Care Field Artillery Radar Operator Name | Role | Phone | + +------+ + | Davis Ivan MD | PCP | | + +------+ + Encounter Details +--------+ + + + + | Date | Type | Department | Care Team | Description | +--------+ + + + + | 08/11/ | Hospital | [facility] [place] [facility] | Conversion | Pain | | 2014 | Encounter | CONVERSION DE[address] | Transaction, | | | | | [address] | Provider Unknown | | | | | [place] | [phone] | | | | | [address] | | | | | | [phone] | | | +--------+ + + + [...] | 2018 | Visit | | [address] | | | | | | [place] | | | | | | [place] [address] | | | | | | [phone] | | | | | | | | +--------+ + + + + | 06/08/ | Office | Physical Medicine | Rocky Santos, | | | 2019 | Visit | and Rehabilitation | MD [address] | | | | | | [place] | | | | | | [address] | | | | | | | | +--------+ + + + + | 06/16/ | Appointment | Pulmonology | Eveline Jaffe | | | 2019 | | | MD [address] | | | | | | [address] [place] | | | | | | [place] [address] | | | | | | [phone] | | | | | | | | +--------+ + + + + | 06/16/ | Office | Pulmonology | Eveline Jaffe | | | 2019 | Visit | | MD [address] | | | | | | [address] [place] | | | | | | [place] [address] | | | | | | [phone] | | | | | | | | +--------+ + + + + | 08/24/ | Office | Cardiology | Anisha Lopez DO | | | 2019 | Visit | | [address] | | | | | | [place] | | | | | | [address] | | | | | | | [...]
--- OUTSIDE RECORDS SUMMARY | ~2019-05-05 | XMS | Encounter Summary ---
Demographics + + + | Address | [address] | | | [place] [address] | + + + | Home Phone [...] [place] | | | | | [address] | | + + + + + Care Team Providers + +------+ + | Care Ticket Scheduler Name | Role | Phone | + [...] | | | | | | [place] [address] | | | | | | [phone] | | | +--------+ + + + [...] | | | | | [place] [address] | | | | | | [phone] | | | | | | | | +--------+ + + + + | 06/08/ | Office | Physical Medicine | Rocky Santos | | | 2019 | Visit | and Rehabilitation | [address] | | | | | | [place] | | | | | | [address] | | | | | | | | +--------+ + + + + | 06/16/ | Appointment | Pulmonology | Eveline Jaffe | | 2019 | | | MD [address] | | | | | | [address] [place] | | | | | | [place] [address] | | | | | | [phone] | | | | | | | | +--------+ + + + + | 06/16/ | Office | Pulmonology | Eveline Jaffe | | | 2019 | Visit | | MD [address] | | | | | | [address] [place] | | | | | | [place] [address] | | | | | | [phone] | | | | | | | | +--------+ + + + + | 08/24/ | Office | Cardiology | Anisha Lopez DO | | 2019 | Visit | | [address] | | | | | | [place] | | | | | | [address] | | | | | | | | +--------+ + + + + documented as of this encounter Visit Diagnoses Not on filedocumented in this encounter"
--- OUTSIDE RECORDS SUMMARY | ~2019-05-05 | XMS | Encounter Summary ---
Demographics + + + | Address | [address] | | | [place] [address] | + + + | Home Phone [...] [place] | | | | | [address] | | + + + + + Care Team Providers + +------+ + | Care Spinning Mule Operator Name | Role | Phone | [...] + + | 10/07/ | Telephone | [facility] | Jf Bahena, | Hospital Follow-up | | 2015 | | [facility] | [facility] [address] | | | | | [address] [place] | [place], [place] | | | | | [place] [address] | [address] | | | | | [phone] | | | +--------+ + + + [...] CENTER | | | | | | [place] [address] | | | | | | [phone] | | | | | | | | +--------+ + + + + | 06/08/ | Office | Physical Medicine | Rocky Santos, | | | 2019 | Visit | and Rehabilitation | [address] | | | | | | [place] | | | | | | [address] | | | | | | | | +--------+ + + + + | 06/16/ | Appointment | Pulmonology | Eveline Jaffe | | | 2019 | | | MD [address] | | | | | | [address] [place] | | | | | | [place] [address] | | | | | | [phone] | | | | | | | | +--------+ + + + + | 06/16/ | Office | Pulmonology | Eveline Jaffe | | | 2019 | Visit | | MD Nichole Carter | | | | | | [address] | | | | | | [place] [address] | | | | | | [phone] | | | | | | | | +--------+ + + + + | 08/24/ | Office | Cardiology | Anisha Lopez DO | | | 2019 | Visit | | [address] | | | | | | [place] | | | | | | [address] | | | | | | | | +--------+ + + + + documented as of this encounter Visit Diagnoses Not on filedocumented in this encounter"
--- OUTSIDE RECORDS SUMMARY | ~2019-05-05 | XMS | Encounter Summary ---
Demographics + + + | Address | [address] | | | [place] [address] | + + + | Home Phone [...] [place] | | | | | [address] | | + + + + + Care Team Providers + +------+ + | Care Tactical Debriefer Name | Role | Phone | + +------+ + | Davis Ivan MD | PCP | | + +------+ + Encounter Details +--------+ + + + + | Date | Type | Department | Care Team | Description | +--------+ + + + + | 10/18/ | Hospital | [facility] | Offenstein, | Cough | | 2015 | Encounter | MED CTR XRAY [address] | MD Raoul Sahni, | | | | | [address] | [address] | | | | | [place] [address] | | | | | | [phone] | | | +--------+ + + + [...] | 2018 | Visit | | [address] | | | | | | [facility] | | | | | | [place] [address] | | | | | | [phone] | | | | | | | | +--------+ + + + + | 06/08/ | Office | Physical Medicine | Rocky Santos, | | | 2019 | Visit | and Rehabilitation | MD Varela [address] | | | | | | [place] | | | | | | [address] | | | | | | | | +--------+ + + + + | 06/16/ | Appointment | Pulmonology | Eveline Jaffe | | | 2019 | | | MD Nichole Carter [address] | | | | | | [address] | | | | | | [place] [address] | | | | | | [phone] | | | | | | | | +--------+ + + + + | 06/16/ | Office | Pulmonology | Eveline Jaffe | | | 2019 | Visit | | MD Nichole Carter [address] | | | | | | [address] | | | | | | [place] [address] | | | | | | [phone] | | | | | | | | +--------+ + + + + | 08/24/ | Office | Cardiology | Anisha Lopez DO | | | 2019 | Visit | | [address] | | | | | | [place] | | | | | | [address] | | | | | | | [...] and Signed by: Ronak | | | Abilio Heath MD Electronically signed: 10/18/2014 12:48 PM [...]
--- OUTSIDE RECORDS SUMMARY | ~2019-05-05 | XMS | Encounter Summary ---
Demographics + + + | Address | [address] | | | [place] [address] | + + + | Home Phone [...] [place] | | | | | [address] | | + + + + + Care Team Providers + +------+ + | Care Civil Engineering Project Manager Name | Role | Phone [...] Malignant | MD Adelita | [address] | | | | | neoplasm of | [address] | [place], | | | | | main | [address] | [place] | | | | | bronchus, | [place], | [address] | | | | | right (HCC) | [place] | Phone: | | | | | Procedures | [address] | [phone] | | | | | MRI Brain w | Phone: | Fax: | | | | | wo Contrast | [phone] | [phone] | | | | | | Fax: | | | | | | | [phone] | | +--------+--------+ + + + + [...] | | | [facility] [address] | [place], [place] | right (HCC) (Primary | | | | [address] [place] | [address] | Dx) | | | | [place] [address] | [phone] | | | | | [phone] | | | +--------+ + + + [...] 2018 | Visit | | [address] | | | | | | [place] | | | | | | [place] [address] | | | | | | [phone] | | | | | | | | +--------+ + + + + | 06/08/ | Office | Physical Medicine | [place], | | | 2019 | Visit | and Rehabilitation | MD Nichole Zapata | | | | | | [place] | | | | | | [address] | | | | | | | | +--------+ + + + + | 06/16/ | Appointment | Pulmonology | Eveline Jaffe | | 2019 | | | MD Nichole Carter [address] | | | | | | [address] [place] | | | | | | [place] [address] | | | | | | [phone] | | | | | | | | +--------+ + + + + | 06/16/ | Office | Pulmonology | Eveline Jaffe | | | 2019 | Visit | | MD Nichole Carter [address] | | | | | | [address] [place] | | | | | | [place] [address] | | | | | | [phone] | | | | | | | | +--------+ + + + + | 08/24/ | Office | Cardiology | Anisha Lopez DO | | | 2019 | Visit | | [address] | | | | | | [place] | | | | | | [address] | | | | | | | [...] + | MISCELLANEOUS LAB | | | [phone] | + +---------+ + + | MISCELANIOUS LAB | | | [phone] | + +---------+ + + documented in this encounter Visit Diagnoses + + | Diagnosis | + + | Malignant neoplasm of main bronchus, right (HCC) - Primary | + + documented in this encounter"
--- OUTSIDE RECORDS SUMMARY | ~2019-05-05 | XMS | Encounter Summary ---
Demographics + + + | Address | [address] | | | [place] [address] | + + + | Home Phone [...] [place] | | | | | [address] | | + + + + + Care Team Providers + +------+ + | Care Band Tacker Name | Role | Phone | [...] | Office | [facility] | [place], | COPD with acute | | 2016 | Visit | PULMONARY [address] | Ayana Looney MD | exacerbation (HCC); | | | | [place], | | Essential | | | | [place] [address] | | hypertension; | | | | [phone] | | Recurrent squamous | | | [...] Date COPD (chronic obstructive pulmonary disease) ([facility]) on albuterol Spondylolisthesis of cervical region Spinal stenosis has tried cortisone injections Osteoporosis Depression Pneumonia 2008 hospitalized 5 days Rheumatoid arthritis(714.0) ([facility]) on prednisone and methotrexate, Dr. 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 Sierra Tunneled venous port placement N/A 07/28/2014 Procedure: Port Placement; Surgeon: Chalino Chiu MD; Location: [facility] OR Colonoscopy 06/2014 Endoscopy Hand arthroplasty Left 03/20/2015 Procedure: Left 1st C.M.C. 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 60 tablet 3 Respiratory Therapy Supplies [facility] [place] S9 auto CPAP 5-9 cm H2O. [...] nodes normal Data: PET/CT scan done in [place] was reviewed and interpreted in clinic today. [...] made to ensure accuracy; however, inadvertent computerized insurance claims supervisor errors may be pre sent. documented in [...] | | | | | [place] [address] | | | | | | [phone] | | | | | | | | +--------+ + + + + | 06/08/ | Office | Physical Medicine | Rocky Santos, | | | 2019 | Visit | and Rehabilitation | MD Nichole Landis | | | | | | [place] | | | | | | [address] | | | | | | | | +--------+ + + + + | 06/16/ | Appointment | Pulmonology | Eveline Jaffe | | 2019 | | | MD Nichole Carter [address] | | | | | | [address] | | | | | | [place] [address] | | | | | | [phone] | | | | | | | | +--------+ + + + + | 06/16/ | Office | Pulmonology | Eveline Jaffe | | | 2019 | Visit | | MD Raul [address] | | | | | | [place] [address] | | | | | | [place] [address] | | | | | | [phone] | | | | | | | | +--------+ + + + + | 08/24/ | Office | Cardiology | Anisha Lopez DO | | | 2019 | Visit | | [address] | | | | | | [place] | | | | | | [address] | | | | | | | [...]
--- OUTSIDE RECORDS SUMMARY | ~2019-05-05 | XMS | Encounter Summary ---
Demographics + + + | Address | [address] | | | [place] [address] | + + + | Home Phone [...] [place] | | | | | [address] | | + + + + + Care Team Providers + +------+ + | Care Pastry Supervisor Name | Role | Phone | + +------+ + | Davis Ivan MD | PCP | | + +------+ + Encounter Details +--------+ + + + + | Date | Type | Department | Care Team | Description | +--------+ + + + + | 11/06/ | Orders Only | [facility] | Gurmeet Vargas | Bronchogenic cancer | | 2017 | | PULMONARY [address] | MD Guil[address] | of right lung (HCC) | | | | [place], | [place] | (Primary Dx) | | | | [place] [address] | [place] [address] | | | | | [phone] | [phone] | | | | | | | [...] | | | | | [place] [address] | | | | | | [phone] | | | | | | | | +--------+ + + + + | 06/08/ | Office | Physical Medicine | [place] Santos, | | | 2019 | Visit | and Rehabilitation | MD Nichole Landis | | | | | | [place] | | | | | | [address] | | | | | | | | +--------+ + + + + | 06/16/ | Appointment | Pulmonology | Eveline Jaffe | | 2019 | | | MD Nichole Carter [address] | | | | | | [address] [place] | | | | | | [place] [address] | | | | | | [phone] | | | | | | | | +--------+ + + + + | 06/16/ | Office | Pulmonology | Eveline Jaffe | | | 2019 | Visit | | MD Raul [address] | | | | | | [address] [place] | | | | | | [place] [address] | | | | | | [phone] | | | | | | | | +--------+ + + + + | 08/24/ | Office | Cardiology | Anisha Lopez DO | | | 2019 | Visit | | [address] | | | | | | [place] | | | | | | [address] | | | | | | | [...] 10/29/[address] chest 11/30/2015. | [facility] | | FINDINGS: Frontal and lateral views of the chest. [facility] | | chest port in place with [...] | [facility] | [address] 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
--- OUTSIDE RECORDS SUMMARY | ~2019-05-05 | XMS | Encounter Summary ---
Demographics + + + | Address | [address] | | | [place] [address] | + + + | Home Phone [...] [place] | | | | | [address] | | + + + + + Care Team Providers + +------+ + | Care Plodding Operator Name | Role | Phone | + +------+ + | Davis Gilbert MD | PCP | | + +------+ + Encounter Details +--------+ + + + + | Date | Type | Department | Care Team | Description | +--------+ + + + + | 03/29/ | Hospital | [facility] | Silviano aCbrera MD | | | 2013 - | Encounter | [facility] | [address] | | | | | [place] | [facility], | | | 04/07/ | | [place], [place] | [place] [address] | | | 2013 | | [address] | [phone] | | | | | [phone] | | | +--------+ + + + [...] Date of Service: 04/07/14 1016 Status: Signed Manager Of Internal: RITA Rubio (Advanced Registered Nurse Practitioner) [facility] Service: Orthopedic Surgery Brief Post-op Discharge Note [...] Follow up: Dr. 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 You may get the following medications [...] 04/07/141619 Date of Service: 04/07/141618 Status: Signed Manager Of Internal: Mayelin Rankin RN (Registered Nurse) Discharged to home with instructions, prescriptions, and belongings. Accompanied by mili menendez Eager to be discharged. Ambulating with TLSO on, voids, pain controlled with PO pain meds . Appetite good, no nausea. onver robert Transaction, Provider Unknown - 04/07/2014 2:21 PM PST Therapy Progress Note by BRITTANY Walters at 04/07/14 1421 Author: BRITTANY Wlaters Service: (none) Author Type: Occupational Therapist Filed: 04/07/14 1090 Date of Service: 11/07/14 1421 Status: Signed Manager Of Internal: BRITTANY Walters (Manager Trade Marketing) 04/07/14 1421 OT Last Visit OT Received On 04/07/14 Reason for Treatment Spinal surgery Requires OT Follow Up Yes Assistance Required 1 person Crane Service Technician Needed No Family/Caregiver Present Yes Precautions Spinal Precautions Lumbar Other Precautions fall risk Other Comments Comments pt supine in bed upon BAGGAGEMASTER arrival. pt waiting for X-ray to be [...] Recommendation Recommendation Short-term skilled OT Equipment Recommended Processing Technician;Sock aid;Elastic shoe laces;Sponge long handled Education Completed: [...] (none) Author Type: Registered Nurse Filed: 04/07/14 1302 Date of Service: 04/07/14 1306 Status: Signed Manager Of Internal: Mayelin Rankin RN (Registered Nurse) Patient's significant other came to desk stating that he didn't want her to be discharged u ntil a lumbar x-ray was done. Vidal Dalton notified and order received. onver robert Martinezaction, Provider Unknown - 04/07/2014 11:15 AM PST Case Management by CLAIRE Lee at 04/07/14 1115 Author: CLAIRE Lee Service: (none) Author Type: Strip Picker Filed: 04/07/14 1117 Date of Service: 04/07/14 1115 Status: Signed Manager Of Internal: CLAIRE Lee (Strip Picker) arranged for [facility] physical therapy as they are the provider for the [facility] area. Pt had no other resource concerns at this time. Colin YUNSW onver robert Transaction, Provider Unknown - 04/07/2014 10:33 AM PST Therapy Progress Note by Denver Arias PTA at 04/07/14 1033 Author: Denver Arias PTA Service: (none) Author Type: Wall Attendant Filed: 04/07/14 1101 Date of Service: 04/07/14 1033 Status: Signed Manager Of Internal: Denver Arias PTA (Wall Attendant) 04/07/14 1033 PT Last Visit PT Received [...] Date of Service: 04/06/14 1631 Status: Signed Manager Of Internal: Shayne Chen RN (Registered Nurse) Discussed POC [...] (none) Author Type: Physical Therapist Filed: 04/06/14 1105 Date of Service: 04/06/14 1450 Status: Signed Manager Of Internal: Min Choe PT (Physical Therapist) 04/06/14 1450 [...] Date of Service: 04/06/14 1412 Status: Signed Manager Of Internal: RITA Rubio (Advanced Registered Nurse Practitioner) [facility] Service: Orthopedic Surgery Note Doing well. Leg [...] Date of Service: 04/06/14 1125 Status: Signed Manager Of Internal: Min Choe PT (Physical Therapist) 04/06/14 1125 [...] Note by Noreen Sharma RN at 04/05/14 3089 Author: Noreen Sharma RN Service: (none) Author Type: Registered Nurse Filed: 04/05/14 0691 Date of Service: 04/05/141540 Status: Signed Manager Of Internal: Noreen Sharma RN (Registered Nurse) Patient requesting pain medication from ANESTHESIA TECH. When returning to the room with the [...] 1436 Date of Service: 04/05/141433 Status: Signed Manager Of Internal: RITA Rubio (Advanced Registered Nurse Practitioner) [facility] Service: Orthopedic Surgery Progress Note Hospital Day: [...] Notes by Archana Adams RD at 04/05/14 2357 Author: Archana Adams RD Service: (none) Author Type: Registered Dietitian Filed: 04/05/14 1427 Date of Service: 04/05/14 799 Status: Signed Manager Of Internal: Archana Adams RD (Registered Dietitian) Nutrition Assessment and Recommendations Assessment: Pt triggered for length of stay. BMI: 30.5 kg/m2, (class I obesity) IBW: 50 kg (152%) ABW: 56.4 kg Food and nutrition-related hx: Pt reports that she does not follow any special diets at [facility], although she has been instructed to follow a low cholesterol, low sodium diet. 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 Current intake: Pt reports intake is currently [...] brought in for pt. Estimated needs: Kcal: 4811-6271 kcal (25-30 kcal/kg adj BW) Protein: 56.4- [...] Note by Noreen Sharma RN at 04/05/14 6744 Author: Noreen Sharma RN Service: (none) Author Type: Registered Nurse Filed: 04/05/14 1051 Date of Service: 04/05/141405 Status: Signed Manager Of Internal: Noreen Sharma RN (Registered Nurse) Patient's significant other is vocal about not wanting patient to go to a SNF. He is reque sting to appeal discharge to SNF. AMANDA Drake aware. Patient also lost dentures 2 days ago. Kitchen, linen services, risk management, and Astrid (surgical waxer floor) all notified. onver robert Transaction, Provider Unknown - 04/05/2014 2:04 PM PST Therapy Progress Note by Denver Arias PTA at 04/05/14 1404 Author: Denver Arias PTA Service: (none) Author Type: Wall Attendant Filed: 04/05/14 1423 Date of Service: 04/05/14 1404 Status: Signed Manager Of Internal: Denver Arias PTA (Wall Attendant) 04/05/14 1404 PT Last Visit PT Received [...] (none) Author Type: Occupational Therapist Filed: 04/05/14 2786 Date of Service: 04/05/14 1350 Status: Signed Manager Of Internal: BRITTANY Walters (Manager Trade Marketing) 04/05/14 1350 OT Last Visit OT Received On 04/05/14 Assistance Required 1 person Crane Service Technician Needed No Family/Caregiver Present Yes Precautions Spinal Precautions Lumbar Other Precautions fall precaution Other Comments Comments pt supine with HOB slightly elevated. pt willing to discuss dressing tasks while i n bed. Able to recall 2/3 precautions. demonstrated use of alum operator/sock aide and shoe horn f or LE dressing tasks. LE Dressing LE Dressing Yes LE Dressing Adaptive Equipment Processing Technician;Sock aide;Shoe horn LE Dressing Where Assessed Bed [...] Recommendation Recommendation Short-term skilled OT Equipment Recommended Processing Technician;Sock aid;Sponge long handled Education Completed: Education Topic: ADL, A/E Completed with: Patient, Spouse Completed by: Verbal Education, Demonstration Response to Education: Stated Understanding, Reinforcement Necessary for Education Unde rstanding Occupational Therapy Plan: Continue OT treatment per POC onver robert Martinezaction, Provider Unknown - 04/05/2014 11:15 AM PST Case Management by CLAIRE Lee at 04/05/14 4413 Author: CLAIRE Lee Service: (none) Author Type: Strip Picker Filed: 04/05/14 2124 Date of Service: 04/05/141114 Status: Addendum Manager Of Internal: CLAIRE Lee (Strip Picker) Related Notes: Original Note by CLAIRE Lee (Strip Picker) filed at 04/05/14 5002 KRYSTAL met pt for discharge planning. CM educated her regarding SNF placement for rehab and pro vided pt with a list of local SNFs. Pt agreed to SNF placement and requested [facility]. CM fax ed pt's info to [facility] and spoke with their backup administrative coordinator who agreed to accept pt upon discharge. KRYSTAL informed pt & her significant other who was upset that pt's false teeth a re missing and stated pt is not going anywhere until she has teeth. KRYSTAL phoned [facility]'s Risk Management Dept and spoke with Bryant who stated the Surgical Cleaning Associate will need to be no tified. CM notified Astrid the Surgical Cleaning Associate and filed a QRR. CM also notified pt's RN . Pt had no other resource concerns at this time. Discharge Plan: SNF Colin SOSA onver robert Transaction, Provider Unknown - 04/05/2014 10:24 AM PST Therapy Progress Note by Denver Arias PTA at 04/05/14 1024 Author: Denver Arias PTA Service: (none) Author Type: Wall Attendant Filed: 04/05/14 1030 Date of Service: 04/05/14 1024 Status: Signed Manager Of Internal: Denver Arias PTA (Wall Attendant) 04/05/14 1024 PT Last Visit PT Received [...] 04/04/142143 Date of Service: 04/04/142142 Status: Signed Manager Of Internal: Leandra Rain RRT (Registered Respiratory Therapist) Please change Mrs. Carmona Albuterol nebs to PRN, Thanks Respiratory Therapy onnarendra jones Transaction, Provider Unknown - 04/04/2014 2:12 PM PST Therapy Progress Note by Denver Arias PTA at 04/04/14 1412 Author: Denver Arias PTA Service: (none) Author Type: Wall Attendant Filed: 04/04/14 1419 Date of Service: 04/04/14 141 Status: Signed Manager Of Internal: Denver Arias PTA (Wall Attendant) 04/04/14 1412 PT Last Visit PT Received [...] Author: CLAIRE Lee Service: (none) Author Type: Strip Picker Filed: 04/04/14 1317 Date of Service: 04/04/14 1316 Status: Signed Manager Of Internal: CLAIRE Lee (Strip Picker) Pt has an IPR consult pending. Pt has no other discharge needs at this time. CM will contin ue to follow as needed. Colin SOSA onver robert Martinezaction, Provider Unknown - 04/04/2014 10:23 AM PST Therapy Progress Note by Denver Arias PTA at 04/04/14 1023 Author: Denver Arias PTA Service: (none) Author Type: Wall Attendant Filed: 04/04/14 1025 Date of Service: 04/04/14 1023 Status: Signed Manager Of Internal: Denver Arias PTA (Wall Attendant) 04/04/14 1023 PT Last Visit PT Received [...] 0829 Date of Service: 04/04/14701 Status: Signed Manager Of Internal: Silviano Cabrera MD (Physician) [facility] Service: Orthopedic Surgery Progress Note Hospital Day: [...] 04/04/148 Date of Service: 04/04/14234 Status: Signed Manager Of Internal: Catia Andres RN (Registered Nurse) Patient talking [...] 04/04/14826 Date of Service: 04/03/141799 Status: Signed Manager Of Internal: Silviano Cabrera MD (Physician) [facility] Service: Orthopedic Surgery Progress Note Hospital Day: [...] Note by May Alvarez RN at 04/03/14 050 Author: May Alvarez RN Service: (none) Author Type: Registered Nurse Filed: 04/03/14 189 Date of Service: 04/03/141746 Status: Signed Manager Of Internal: May Alvarez RN (Registered Nurse) Patient attempting [...] Note by Denver Arias PTA at 04/03/14 4297 Author: Denver Arias PTA Service: (none) Author Type: Wall Attendant Filed: 04/03/14 1401 Date of Service: 04/03/14 1357 Status: Signed Manager Of Internal: Denver Arias PTA (Wall Attendant) 04/03/14 1357 PT Last Visit PT Received [...] Author: Antonio Vides Service: (none) Author Type: High School Business Teacher Filed: 04/03/14 1257 Date of Service: 04/03/14 1255 Status: Signed Manager Of Internal: Antonio Vides (High School Business Teacher) Stopped in for care, pt lying on bed was not willing to interact with the pt. Cut Off Machine Unloader will stop by another time. chaplain Jane international marketing executive onver robert Transaction, Provider Unknown - 04/03/2014 11:38 AM PST Therapy Progress Note by BLAIR Chang at 04/03/14 1138 Author: BLAIR Chang Service: (none) Author Type: Occupational Therapist Filed: 04/03/14 1245 Date of Service: 04/03/14 1138 Status: Signed Manager Of Internal: BLAIR Chang (Occupational Therapist) 04/03/14 1138 OT Last Visit OT Received On 04/03/14 Reason for Treatment Spinal surgery Requires OT Follow Up Yes Assistance Required 1 person Crane Service Technician Needed No Family/Caregiver Present No Precautions Spinal [...] improve. (SNF) Equipment Recommended Sponge long handled;Sock aid;Processing Technician onver robert Transaction, Provider Unknown - 04/03/2014 9:50 AM PST Therapy Progress Note by Denver Arias PTA at 04/03/14 9220 Author: Denver Arias PTA Service: (none) Author Type: Wall Attendant Filed: 04/03/14 0953 Date of Service: 04/03/14 0950 Status: Signed Manager Of Internal: Denver Arias PTA (Wall Attendant) 04/03/14 0950 PT Last Visit PT Received [...] 04/03/1444 Date of Service: 04/02/142204 Status: Signed Manager Of Internal: Deborah Johnson RN (Registered Nurse) Pt found [...] Date of Service: 04/02/14 141 Status: Signed Manager Of Internal: Winsome Lovett RN (Registered Nurse) Pt very [...] Date of Service: 04/02/14 1320 Status: Signed Manager Of Internal: Sheyla Brewster PT (Physical Therapist) 04/02/14 1300 [...] Date of Service: 04/02/14 1244 Status: Signed Manager Of Internal: BLAIR Chang (Occupational Therapist) 04/02/14 1244 OT Last Visit OT Received On 04/02/14 Reason for Treatment Spinal surgery Requires OT Follow Up Yes Assistance Required 1 person Crane Service Technician Needed No Family/Caregiver Present No Precautions Spinal [...] skilled OT Equipment Recommended Sponge long handled;Sock aid;Processing Technician Sheyla Morris PT - 04/02/2014 9:05 AM PST Therapy Progress Note by Sheyla Brewster PT at 04/02/14 0905 Author: Sheyla Brewster PT Service: (none) Author Type: Physical Therapist Filed: 04/02/14 0947 Date of Service: 04/02/14904 Status: Signed Manager Of Internal: Sheyla Brewster PT (Physical Therapist) 04/02/14 0900 [...] 04/02/1453 Date of Service: 04/02/14821 Status: Signed Manager Of Internal: Sheyla Brewster PT (Physical Therapist) 04/02/14 0800 [...] 04/04/14825 Date of Service: 04/02/14700 Status: Signed Manager Of Internal: Silviano Cabrera MD (Physician) [facility] Service: Orthopedic Surgery Progress Note Hospital Day: [...] Note by Giovani Caceres PT at 04/01/14 1426 Author: Giovani Caceres PT Service: (none) Author Type: Physical Therapist Filed: 04/01/14 1427 Date of Service: 04/01/141423 Status: Signed Manager Of Internal: Giovani Caceres PT (Physical Therapist) 04/01/14 1357 [...] Date of Service: 04/01/14 1053 Status: Signed Manager Of Internal: Giovani Caceres PT (Physical Therapist) 04/01/14 1021 [...] 04/01/14916 Date of Service: 04/01/14913 Status: Signed Manager Of Internal: RITA Rubio (Advanced Registered Nurse Practitioner) [facility] Service: Orthopedic Surgery Progress Note Hospital Day: [...] Notes by Kari Mckeon RPH at 03/31/14 8811 Author: Kari Mckeon RPH Service: (none) Author Type: Pharmacist Filed: 03/31/14 9031 Date of Service: 03/31/141358 Status: Signed Manager Of Internal: Kari Mckeon RPH (Pharmacist) >> KARI MCKEON 03/31/2014 13:59 Zosyn Extended Infusion Initial Consult Thea Carmona 68 y.o. female Estimated Creatinine Clearance: 56 mL/min (by C-G formula based on Cr of 0.87). NEUTROPHILS ABS Date Value Range Status 03/30/2014 9.8* 1.9 - 7.4 K/uL Final Testing performed at [facility], [address] [place] [id number] CREATININE Date Value Range Status 03/30/2014 0.87 0.50 - 1.00 mg/dL Final Testing performed at [facility], [address] [place] [id number] Zosyn extended Infusion loading and maintenance dose guidelines Loading Dose 4.5 g IV Over 30 minutes CrCl >20 ml/min 3.375 g IV Q 8 hours Over 4 hours CrCl 10-20 ml/min 3.375 g IV Q 12 hours Over 4 hours CrCl <10, HD, PD Follow [facility] Dosage Adjustments in Renal Dysfunction Protocol [...] Denver Arias PTA Service: (none) Author Type: Wall Attendant Filed: 03/31/14 1044 Date of Service: 03/31/14 104 Status: Signed Manager Of Internal: Denver Arias PTA (Wall Attendant) 03/31/14 1043 PT Last Visit PT Received [...] Denver Arias PTA Service: (none) Author Type: Wall Attendant Filed: 03/30/14 1446 Date of Service: 03/30/141443 Status: Signed Manager Of Internal: Denver Arias PTA (Wall Attendant) 03/30/14 1444 PT Last Visit PT Received [...] Denver Arias PTA Service: (none) Author Type: Wall Attendant Filed: 03/30/148 Date of Service: 03/30/141115 Status: Signed Manager Of Internal: Denver Arias PTA (Wall Attendant) 03/30/141115 PT Last Visit PT Received On [...] Author: CLAIRE Lee Service: (none) Author Type: Strip Picker Filed: 03/30/14 0953 Date of Service: 03/30/14951 Status: Signed Manager Of Internal: CLAIRE Lee (Strip Picker) CM met with pt for discharge planning. [...] as needed. Discharge Plan: Home. Colin Abraham [facility] 03/30/14 0951 Discharge Planning Evaluation Admitting Diagnosis [...] 0757 Date of Service: 03/30/14755 Status: Signed Manager Of Internal: RITA Rubio (Advanced Registered Nurse Practitioner) [facility] Service: Orthopedic Surgery Progress Note Hospital Day: [...] 1009 Date of Service: 03/30/14706 Status: Signed Manager Of Internal: BLAIR Raymudno (Occupational Therapist) 03/30/14706 Precautions Spinal Precautions Lumbar;TLSO on when upright (fusion L4-5) Other Precautions fall risk Home Environment Bathroom Equipment Grab bars in shower/bath;Hand-held shower head;Tub transfer bench;Shower chair;Raised toilet seat Additional Comments Refer to PT note for PLOF Prior Function Level of [place] Modified independent with functional mobility;Assist with ADLs;Assist [...] ntaining back precautions LE Dressing Adaptive Equipment Processing Technician;Shoehorn long-handled;Sock aid Arm Goals Pt Will Perform AROM B UE;1 set;10 reps;With good activity tolerance 03/30/14 0707 ADL Goals Pt Will Perform Grooming Standing at sink;With supervision;Maintaining back precautions Pt Will Perform LE Dressing At edge of bed;In chair;Supervision;With adaptive equipment;Delores ntaining back precautions LE Dressing Adaptive Equipment Processing Technician;Shoehorn long-handled;Sock aid Arm Goals Pt Will Perform [...] 1441 Date of Service: 03/29/141440 Status: Signed Manager Of Internal: Hugo Dsouza RPH (Pharmacist) Pharmacy will renal dose as needed once labs are available. onver robert Transaction, Provider Unknown - 03/29/2014 2:20 PM PDT Therapy Progress Note by Randee Cage PT at 03/29/14 1420 Author: Randee Cage PT Service: (none) Author Type: Physical Therapist Filed: 03/29/14 1553 Date of Service: 03/29/14 1420 Status: Signed Manager Of Internal: Randee Cage PT (Physical Therapist) 03/29/14 1420 [...] walker Home Equipment Walker 4 wheeled;Cane single point;Processing Technician;Chair lift;Bed hospital Additional Comments Lives with s.o., [...] outpt PT prn) Prior Function Level of [place] Assist with ADLs;Assist with functional mobility;Modified independent [...] Note by Kari Mccarty RN at 03/29/14 6820 Author: Kari Mccarty RN Service: Anesthesiology Author Type: Registered Nurse Filed: 03/29/14 8632 Date of Service: 03/29/143 Status: Signed Manager Of Internal: Kari Mccarty RN (Registered Nurse) Pt difficult [...] | | | | | [place] [address] | | | | | | [phone] | | | | | | | | +--------+ + + + + | 06/08/ | Office | Physical Medicine | Rocky Santos, | | | 2019 | Visit | and Rehabilitation | MD Varela [address] | | | | | | [place] | | | | | | [id number] | | | | | | | | +--------+ + + + + | 06/16/ | Appointment | Pulmonology | Eveline Jaffe | | | 2019 | | | MD Nichole Carter [address] | | | | | | [address] | | | | | | [place] [address] | | | | | | [phone] | | | | | | | | +--------+ + + + + | 06/16/ | Office | Pulmonology | Eveline Jaffe | | | 2019 | Visit | | MD Nichole Carter | | | | | | [address] | | | | | | [place] [address] | | | | | | [phone] | | | | | | | | +--------+ + + + + | 08/24/ | Office | Cardiology | Anisha Lopez DO | | | 2019 | Visit | | [address] | | | | | | [place] | | | | | | [address] | | | | | | | [...] EXTERNAL | | | | performed at [facility], [address] | | LAB | | | | [address], | | | | | | [place] [address] | | | | + + + + + + | RED CELL | 2.74 (L)Comment: Testing | 3.70 - 5.10 | EXTERNAL | | | COUNT | performed at [facility], [address] | M/uL | LAB | | | | [address], | | | | | | [place] [address] | | | | + + + + + + | Hgb | 8.4 (L)Comment: Testing | 11.3 - 15.5 | EXTERNAL | | | | performed at [facility], [address] | g/dL | LAB | | | | [address], | | | | | | [place] [address] | | | | + + + + + + | Hematocrit, | 25.6 (L)Comment: Testing | 34.0 - 46.0 % | EXTERNAL | | | POC | performed at [facility], [address] | | LAB | | | | [address], | | | | | | [place] [address] | | | | + + + + + + | MCV | 93.6Comment: Testing | 80.0 - 100.0 fl | EXTERNAL | | | | performed at [facility], [address] | | LAB | | | | [address], | | | | | | [place], [place] [address] | | | | + + + + + + | MCH | 30.5Comment: Testing | 27.0 - 34.0 pg | EXTERNAL | | | | performed at [facility], [address] | | LAB | | | | [address], | | | | | | [place], [place] [address] | | | | + + + + + + | MCHC | 32.6Comment: Testing | 32.0 - 35.5 | EXTERNAL | | | | performed at [facility], [address] | g/dL | LAB | | | | [address], | | | | | | [place] [address] | | | | + + + + + + | RDW-CV | 64.8 (H)Comment: Testing | 37 - 53 fl | EXTERNAL | | | | performed at [facility], [address] | | LAB | | | | [address], | | | | | | [place] [address] | | | | + + + + + + | Platelet | 163Comment: Testing | 150 - 400 K/uL | EXTERNAL | | | Count | performed at [facility], [address] | | LAB | | | Plasma | [address], | | | | | | [place] [address] | | | | + + + + + + | MPV | 7.9Comment: Testing | fl | EXTERNAL | | | | performed at [facility], [address] | | LAB | | | | [address], | | | | | | [place] [address] | | | | + + + + + + | Differentia | MANUALComment: Testing | | EXTERNAL | | | l Type | performed at [facility], [address] | | LAB | | | | [address], | | | | | | [place] [address] | | | | + + + + + + | Segmented | 79Comment: Testing | % | EXTERNAL | | | Neutrophils | performed at [facility], [address] | | LAB | | | Manual | [address], | | | | | | [place] [address] | | | | + + + + + + | % Bands | 2Comment: Testing | % | EXTERNAL | | | | performed at [facility], [address] | | LAB | | | | [address], | | | | | | [place] [address] | | | | + + + + + + | % | 1Comment: Testing | % | EXTERNAL | | | Metamyelocy | performed at [facility], [address] | | LAB | | | [address] | [address], | | | | | | [place] [address] | | | | + + + + + + | Lymphocytes | 6Comment: Testing | % | EXTERNAL | | | Manual | performed at [facility], [address] | | LAB | | | | [address], | | | | | | [place] [address] | | | | + + + + + + | Monocytes | 12Comment: Testing | % | EXTERNAL | | | Manual | performed at [facility], [address] | | LAB | | | | [address], | | | | | | [place] [address] | | | | + + + + + + | Absolute | 11.9 (H)Comment: Testing | 1.9 - 7.4 K/uL | EXTERNAL | | | Neutrophils | performed at [facility], [address] | | LAB | | | | [address], | | | | | | [place] [address] | | | | + + + + + + | Bands | 0.3 (H)Comment: Testing | 0 - 0.2 K/uL | EXTERNAL | | | Manual | performed at [facility], [address] | | LAB | | | | [address], | | | | | | [place] [address] | | | | + + + + + + | Absolute | 0.2 (H)Comment: Testing | K/uL | EXTERNAL | | | Metamyelocy | performed at [facility], [address] | | LAB | | | [address] | [address], | | | | | | [place] [address] | | | | + + + + + + | Absolute | 0.9 (L)Comment: Testing | 1.0 - 3.9 K/uL | EXTERNAL | | | Lymphocytes | performed at [facility] SYSTEM, [address] | | LAB | | | | [address], | | | | | | [place] [address] | | | | + + + + + + | Absolute | 1.8 (H)Comment: Testing | 0 - 0.8 K/uL | EXTERNAL | | | Monocytes | performed at [facility], [address] | | LAB | | | | [address], | | | | | | [place] [address] | | | | + + + + + + | RBC | 2+Comment: ANISONORMAL | | EXTERNAL | | | Morphology | PLT MORPHTesting | | LAB | | | | performed at [facility], [address] | | | | | | [address], | | | | | | [place] [address] | | | | | | | [...] | | | | | [place] [address] | | | | + + + + + + | K | 4.1Comment: Testing | 3.5 - 4.9 | EXTERNAL | | | | performed at [facility]CL, [address] | mmol/L | LAB | | | | [address], | | | | | | [place] [address] | | | | + + + + + + | Cl | 100Comment: Testing | 99 - 109 mmol/L | EXTERNAL | | | | performed at [facility], [address] | | LAB | | | | [address], | | | | | | [place] [address] | | | | + + + + + + | CO2 | 22 (L)Comment: Testing | 23 - 32 mmol/L | EXTERNAL | | | | performed at [facility], [address] | | LAB | | | | [address], | | | | | | [place] [address] | | | | + + + + + + | Anion Gap | 11Comment: Testing | 5 - 20 mmol/L | EXTERNAL | | | | performed at [facility], [address] | | LAB | | | | [address], | | | | | | [place] [address] | | | | + + + + + + | Glucose, | 117 (H)Comment: Testing | 65 - 99 mg/dL | EXTERNAL | | | Fasting | performed at [facility], [address] | | LAB | | | | [address], | | | | | | [place] [address] | | | | + + + + + + | BUN | 17Comment: Testing | 8 - 25 mg/dL | EXTERNAL | | | | performed at [facility], [address] | | LAB | | | | [address], | | | | | | [place] [address] | | | | + + + + + + | Creatinine | 0.79Comment: Testing | 0.50 - 1.00 | EXTERNAL | | | | performed at [facility], [address] | mg/dL | LAB | | | | [address], | | | | | | [place] [address] | | | | + + + + + + | BUN/Creatin | 22Comment: Testing | | EXTERNAL | | | ine Ratio | performed at [facility], [address] | | LAB | | | | [address], | | | | | | [place] [address] | | | | + + + + + + | Calcium | 8.1 (L)Comment: Testing | 8.5 - 10.2 | EXTERNAL | | | | performed at [facility], [address] | mg/dL | LAB | | | | [facility], | | | | | | [place] [address] | | | | + + [...] | | | | | [place] [address] | | | | + + + [...] Conversion - 01/14/2019 11:10 AM PDT THEA CARMONA[age]24 years | | Xmfszx7703/30/2014 8:11 AMCT LUMBAR SPINE WO CONTRAST INDICATION: [...] EXTERNAL | | | | performed at [facility], [address] | | LAB | | | | [address], | | | | | | [place] [address] | | | | + + + + + + | RED CELL | 3.29 (L)Comment: Testing | 3.70 - 5.10 | EXTERNAL | | | COUNT | performed at [facility], [address] | M/uL | LAB | | | | [address], | | | | | | [place] [address] | | | | + + + + + + | Hgb | 9.9 (L)Comment: Testing | 11.3 - 15.5 | EXTERNAL | | | | performed at [facility], [address] | g/dL | LAB | | | | [address], | | | | | | [place] [address] | | | | + + + + + + | Hematocrit, | 30.8 (L)Comment: Testing | 34.0 - 46.0 % | EXTERNAL | | | POC | performed at [facility], [address] | | LAB | | | | [address], | | | | | | [place] [address] | | | | + + + + + + | MCV | 93.5Comment: Testing | 80.0 - 100.0 fl | EXTERNAL | | | | performed at [facility], [address] | | LAB | | | | [address], | | | | | | [place] [address] | | | | + + + + + + | MCH | 30.0Comment: Testing | 27.0 - 34.0 pg | EXTERNAL | | | | performed at [facility], [address] | | LAB | | | | [address], | | | | | | [place] [address] | | | | + + + + + + | MCHC | 32.1Comment: Testing | 32.0 - 35.5 | EXTERNAL | | | | performed at [facility], [address] | g/dL | LAB | | | | [address], | | | | | | [place], [place] [address] | | | | + + + + + + | RDW-CV | 65.6 (H)Comment: Testing | 37 - 53 fl | EXTERNAL | | | | performed at [facility], [address] | | LAB | | | | [address], | | | | | | [place] [address] | | | | + + + + + + | Platelet | 177Comment: Testing | 150 - 400 K/uL | EXTERNAL | | | Count | performed at [facility], [address] | | LAB | | | Plasma | [address], | | | | | | [place] [address] | | | | + + + [...] [place] | | | | | | [address] | | | | + + + + + + | % Segmented | 79.7Comment: Testing | % | EXTERNAL | | | | performed at [facility], [address] | | LAB | | | Neutrophils | [address], | | | | | | [place] [address] | | | | + + + + + + | % | 9.4Comment: Testing | % | EXTERNAL | | | Lymphocytes | performed at [facility], [address] | | LAB | | | | [address], | | | | | | [place] [address] | | | | + + + + + + | % Monocytes | 10.7Comment: Testing | % | EXTERNAL | | | | performed at [facility], [address] | | LAB | | | | [address], | | | | | | [place] [address] | | | | + + + + + + | % | 0.1Comment: Testing | % | EXTERNAL | | | Eosinophils | performed at [facility], [address] | | LAB | | | | [address], | | | | | | [place] [address] | | | | + + + + + + | % Basophils | 0.1Comment: Testing | % | EXTERNAL | | | | performed at [facility], [address] | | LAB | | | | [address], | | | | | | [place] [address] | | | | + + + + + + | Absolute | 9.8 (H)Comment: Testing | 1.9 - 7.4 K/uL | EXTERNAL | | | Segmented | performed at [facility], [address] | | LAB | | | Neutrophils | [address], | | | | | | [place] [address] | | | | + + + + + + | Absolute | 1.2Comment: Testing | 1.0 - 3.9 K/uL | EXTERNAL | | | Lymphocytes | performed at [facility], [address] | | LAB | | | | [address], | | | | | | [place] [address] | | | | + + + + + + | Absolute | 1.3 (H)Comment: Testing | 0 - 0.8 K/uL | EXTERNAL | | | Monocytes | performed at [facility], [address] | | LAB | | | | [address], | | | | | | [place] [address] | | | | + + + + + + | Absolute | 0.0Comment: Testing | 0 - 0.5 K/uL | EXTERNAL | | | Eosinophils | performed at [facility], [address] | | LAB | | | | [address], | | | | | | [place] [address] | | | | + + + + + + | Absolute | 0.0Comment: Testing | 0 - 0.1 K/uL | EXTERNAL | | | Basophils | performed at [facility], [address] | | LAB | | | | [address], | | | | | | [place] [address] | | | | + + + [...] | | | | | [place] [address] | | | | + + + + + + | K | 4.6Comment: Testing | 3.5 - 4.9 | EXTERNAL | | | | performed at [facility], [address] | mmol/L | LAB | | | | [address], | | | | | | [place] [address] | | | | + + + + + + | Cl | 103Comment: Testing | 99 - 109 mmol/L | EXTERNAL | | | | performed at [facility], [address] | | LAB | | | | [address], | | | | | | [place] [address] | | | | + + + + + + | CO2 | 28Comment: Testing | 23 - 32 mmol/L | EXTERNAL | | | | performed at [facility], [address] | | LAB | | | | [address], | | | | | | [place] [address] | | | | + + + + + + | Anion Gap | 8Comment: Testing | 5 - 20 mmol/L | EXTERNAL | | | | performed at [facility], [address] | | LAB | | | | [address], | | | | | | [place] [address] | | | | + + + + + + | Glucose, | 106 (H)Comment: Testing | 65 - 99 mg/dL | EXTERNAL | | | Fasting | performed at [facility], [address] | | LAB | | | | [address], | | | | | | [place] [address] | | | | + + + + + + | BUN | 21Comment: Testing | 8 - 25 mg/dL | EXTERNAL | | | | performed at [facility], [address] | | LAB | | | | [address], | | | | | | [place] [address] | | | | + + + + + + | Creatinine | 0.87Comment: Testing | 0.50 - 1.00 | EXTERNAL | | | | performed at [facility], [address] | mg/dL | LAB | | | | [address], | | | | | | [place] [address] | | | | + + + + + + | BUN/Creatin | 24Comment: Testing | | EXTERNAL | | | ine Ratio | performed at [facility], [address] | | LAB | | | | [address], | | | | | | [place] [address] | | | | + + + + + + | Calcium | 8.5Comment: Testing | 8.5 - 10.2 | EXTERNAL | | | | performed at [facility], [address] | mg/dL | LAB | | | | [facility], | | | | | | [place] [address] | | | | + + + [...] | | | | | | at [facility], [address] | | | | | | eReceipts [facility], | | | | | | [place] [address] | | | | + + + [...] | Procedure Note | + + | Rauol Lockwood Conversion - 01/14/2019 11:10 AM NEHA [...] | EXTERNAL | | | | [facility];[address] | | LAB | | | | [address]vd;[place] [address] | | | | + + + + + + | Antibody | NEGATIVE | | EXTERNAL | | | Screen | | | LAB | | + + + + + + | Antibody | Testing performed at | | EXTERNAL | | | Screen | [facility] | | LAB | | | | [address];[place] [address] | | | | + + + + + + | BB BAND | [id number] | | EXTERNAL | | | | | | LAB | | + + + + + + | BB BAND | Testing performed at | | EXTERNAL | | | | [facility] | | LAB | | | | [address];[place] [address] | | | | + + + [...]
--- OUTSIDE RECORDS SUMMARY | ~2019-05-05 | XMS | Encounter Summary ---
Demographics + + + | Address | [address] | | | [place] [address] | + + + | Home Phone [...] [place] | | | | | [address] | | + + + + + Care Team Providers + +------+ + | Care Manager Distribution Name | Role | Phone | + [...] | 09/26/ | Telephone | [facility] | Adelita Lu MD | Other | | 2014 | | MED CTR MED[facility] | [address] [facility] | | | | | ONCOLOGY CLINIC [address] | [place] | | | | | [address] [facility] | [address] | | | | | [place] [address] | [phone] | | | | | [phone] | | | +--------+ + + + [...] | | | | | [place] [address] | | | | | | [phone] | | | | | | | | +--------+ + + + + | 06/08/ | Office | Physical Medicine | Rocky Santos, | | | 2019 | Visit | and Rehabilitation | [address] | | | | | | [place] | | | | | | [address] | | | | | | | | +--------+ + + + + | 06/16/ | Appointment | Pulmonology | Eveline Jaffe | | | 2019 | | | MD [address] | | | | | | [address] [place] | | | | | | [place] [address] | | | | | | [phone] | | | | | | | | +--------+ + + + + | 06/16/ | Office | Pulmonology | Eveline Jaffe | | | 2019 | Visit | | MD [address] | | | | | | [address] [place] | | | | | | [place], [place] [address] | | | | | | [phone] | | | | | | | | +--------+ + + + + | 08/24/ | Office | Cardiology | Anisha Lopez DO | | | 2019 | Visit | | [address] | | | | | | [place] | | | | | | [address] | | | | | | | | +--------+ + + + + documented as of this encounter Visit Diagnoses Not on filedocumented in this encounter"
--- OUTSIDE RECORDS SUMMARY | ~2019-05-05 | XMS | Encounter Summary ---
Demographics + + + | Address | [address] | | | [place] [address] | + + + | Home Phone [...] [place] | | | | | [address] | | + + + + + Care Team Providers + +------+ + | Care Juice Standardizer Name | Role | Phone | + [...] | | Procedures | Epi Gaston | [facility] | | | | | F/U - APPT | F[place], | [place] | | | | | [address] | [place] [address] | [address] Phone: | | | | | JONATHAN | Phone: | [phone] | | | | | | [phone] | Fax: | | | | | | Fax: | [phone] | | | | | | [phone] | | + +--------+ + + + + Encounter Details +--------+---------+ + + + | Date | Type | Department | Care Team | Description | +--------+---------+ + + + | 03/16/ | Office | [facility] | Eveline Jaffe | Dyspnea on exertion | | 2019 | Visit | PULMONARY [address] | MD Raul [address] | (Primary Dx); | | | | [place], | [address] | Chronic obstructive | | | | [place] [address] | [place] [address] | pulmonary disease, | | | | [phone] | [phone] | unspecified COPD | | | | [...] solution 3 mL Pulmonary function test PFT [facility] COPD We will need repeat pulmonary function [...] outside imaging. More than 30 minutes spent [id number] with patient with more than half the [...] | | | | | [place] [address] | | | | | | [phone] | | | | | | | | +--------+ + + + + | 06/08/ | Office | Physical Medicine | Rocky Santos, | | | 2019 | Visit | and Rehabilitation | MD [address] | | | | | | [place] | | | | | | [address] | | | | | | | | +--------+ + + + + | 06/16/ | Appointment | Pulmonology | Eveline Jaffe | | 2019 | | | MD [address] | | | | | | [address] | | | | | | [place] [address] | | | | | | [phone] | | | | | | | | +--------+ + + + + | 06/16/ | Office | Pulmonology | Eveline Jaffe | | | 2019 | Visit | | MD Raul [address] | | | | | | [address] [place] | | | | | | [place] [address] | | | | | | [phone] | | | | | | | | +--------+ + + + + | 08/24/ | Office | Cardiology | Anisha Lopez DO | | | 2019 | Visit | | [address] | | | | | | [place] | | | | | | [address] | | | | | | | [...]
--- OUTSIDE RECORDS SUMMARY | ~2019-05-05 | XMS | Encounter Summary ---
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 | | | | INFUSION [address] | [place], [place] | lung, unspecified | | | | [place], | [address] | laterality (HCC); | | | | [place] [address] | [phone] | Pulmonary nodules | | | | [phone] | | | +--------+ + + + [...] 2018 | Visit | | [address] | | | | | | [place] | | | | | | [place] [address] | | | | | | [phone] | | | | | | | | +--------+ + + + + | 06/08/ | Office | Physical Medicine | Rocky Santos, | | | 2019 | Visit | and Rehabilitation | MD [address] | | | | | | [place] | | | | | | [address] | | | | | | | | +--------+ + + + + | 06/16/ | Appointment | Pulmonology | Eveline Jaffe | | 2019 | | | MD [address] | | | | | | [address] [place] | | | | | | [place] [address] | | | | | | [phone] | | | | | | | | +--------+ + + + + | 06/16/ | Office | Pulmonology | Eveline Jaffe | | | 2019 | Visit | | MD [address] | | | | | | [address] [place] | | | | | | [place] [address] | | | | | | [phone] | | | | | | | | +--------+ + + + + | 08/24/ | Office | Cardiology | Anisha Lopez DO | | 2019 | Visit | | [address] | | | | | | [place] | | | | | | [address] | | | | | | | [...] [address] | [place] | [phone] | | [facility] | | [address] | | | - LABORATORY | | [...] | 0.80 | 0.60 - 1.30 | [facility] | | | | | mg/dL | [facility] | | | | | | MEDICAL | | | | | | CENTER - | | | | | | LABORATORY | | + + + + + + | eGFR if not | >60Comment: GLOMERULAR | >=60 | [facility] | | | | FILTRATION | mL/min/1.73m2 | [facility] | | | YEMENI | RATE,ESTIMATED | | MEDICAL | | | | mL/min/1.97q7Wbkt than | | CENTER - | | [...] ST. | [address] | [place] | [phone] | | [facility] | | [address] | | | - LABORATORY | | [...]
--- OUTSIDE RECORDS SUMMARY | ~2019-05-05 | XMS | Encounter Summary ---
Demographics + + + | Address | [address] | | | [place] [address] | + + + | Home Phone [...] [place] | | | | | [address] | | + + + + + Care Team Providers + +------+ + | Care Punching Machine Operator Name | Role | Phone [...] + + | Closed | Specialty | Medical Management Trainer | Diagnoses | Taisha, | Nancy, | | | Services | | Rheumatoid | Santosh, | GERDA Rhoades | | | Required | | arthritis, | PA-Avila [address] | [address] | | | | | involving | [place] | [address] | | | | | unspecified | PLACE | [place], [place] | | | | | [facility], | [facility], | [address] Phone: | | | | | unspecified | [place] [address] | [phone] | | | | | rheumatoid | Phone: | | | | | | factor | [phone] | | | | | | presence | Fax: | | | | | | ([facility]) | [phone] | | +--------+ + + + + [...] | | | | ([facility]), | [address] | [place], [place] | | | | | Billed out | [place], | [address] | | | | | for M13.00 | [place] | Phone: | | | | | | [address] | [phone] | | | | | | Phone: | Fax: | | | | | | [phone] | [phone] | | | | | | Fax: | | | | | | | [phone] | | + +--------+ + + + + Encounter Details +--------+---------+ + + + | Date | Type | Department | Care Team | Description | +--------+---------+ + + + | 02/22/ | Office | [facility] | Santosh Sumner, | Rheumatoid | | 2019 | Visit | RHEUMATOLOGY [address] | PA-C [address] | arthritis, involving | | | | [facility] | [facility] | unspecified site, | | | | [place], [place] | [place] [address] | unspecified | | | | [address] | [phone] | rheumatoid factor | | | | [phone] | | presence (HCC) | | | [...] encounter Patient Instructions Patient Instructions Duyen Gonsalves, Tank Processor - 02/22/2019 1:50 PM PDTWe hop e that you have experienced exceptional care today and that you found our service to be cour teous and helpful. ? If you have any questions/concerns or need medication refills you can send us a message/r equest using [employer] or by calling our office at [phone]. o If you would like to reach my biomedical equipment tech, Eileen Gonsalves please call [phone] Ext: [phone] ? If you are unable to reach [...] can also look at your results on [employer]. If you are experiencing an emergency, please [...] arthritis(714.0) on prednisone and methotrexate, Dr. 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 Laboratory results were reviewed in [facility] as well as chart notes and imaging [...] | | | | | [place] [address] | | | | | | [phone] | | | | | | | | +--------+ + + + + | 06/08/ | Office | Physical Medicine | Rocky Santos, | | | 2019 | Visit | and Rehabilitation | MD [address] | | | | | | [place] | | | | | | [address] | | | | | | | | +--------+ + + + + | 06/16/ | Appointment | Pulmonology | Eveline Jaffe | | | 2019 | | | MD [address] | | | | | | [address] | | | | | | [place] [address] | | | | | | [phone] | | | | | | | | +--------+ + + + + | 06/16/ | Office | Pulmonology | Eveline Jaffe | | | 2019 | Visit | | MD [address] | | | | | | [address] [place] | | | | | | [place] [address] | | | | | | [phone] | | | | | | | | +--------+ + + + + | 08/24/ | Office | Cardiology | Anisha Lopez DO | | | 2019 | Visit | | [address] | | | | | | [place] | | | | | | [address] | | | | | | | [...]
--- OUTSIDE RECORDS SUMMARY | ~2019-05-05 | XMS | Encounter Summary ---
Demographics + + + | Address | [address] | | | [place] [address] | + + + | Home Phone [...] [place] | | | | | [address] | | + + + + + Care Team Providers + +------+ + | Care Flight Dynamicist Name | Role | Phone | + [...] MED CTR MEDICAL | [address] [facility] | carcinoma of lung, | | | | ONCOLOGY CLINIC [address] | [place], [place] | unspecified | | | | [facility] | [address] | laterality (HCC) | | | | [place] [address] | [phone] | (Primary Dx) | | | | [phone] | | | +--------+ + + + [...] | | | | | [place] [address] | | | | | | [phone] | | | | | | | | +--------+ + + + + | 06/08/ | Office | Physical Medicine | Rocky Santos, | | | 2019 | Visit | and Rehabilitation | [address] | | | | | | [place] | | | | | | [id number] | | | | | | | | +--------+ + + + + | 06/16/ | Appointment | Pulmonology | Eveline Jaffe | | | 2019 | | | MD [address] | | | | | | [address] [place] | | | | | | [place], [place] [address] | | | | | | [phone] | | | | | | | | +--------+ + + + + | 06/16/ | Office | Pulmonology | Eveline Jaffe | | | 2019 | Visit | | MD [address] | | | | | | [address] [place] | | | | | | [place] [address] | | | | | | [phone] | | | | | | | | +--------+ + + + + | 08/24/ | Office | Cardiology | Anisha Lopez DO | | | 2019 | Visit | | [address] | | | | | | [place] | | | | | | [address] | | | | | | | [...] | 0.97 | 0.60 - 1.30 | [facility] | | | | | mg/dL | [facility] | | | | | | MEDICAL | | | | | | CENTER - | | | | | | LABORATORY | | + + + + + + | eGFR if not | 57 (L)Comment: | >=60 | [facility] | | | | GLOMERULAR FILTRATION | mL/min/1.73m2 | [facility] | | | [place] | RATE,ESTIMATED | | MEDICAL | | | | mL/min/1.68e1Znwy than | | CENTER - | | [...] + | [facility] | [address] | [place], [place] | [phone] | | [facility] | | [address] | | | - LABORATORY | | | | + + + + + | [facility] | [address] | [place], [place] | | | [facility] | | [address] | | | - LABORATORY | | [...] [address] | [place] | [phone] | | [facility] | | [address] | | | - LABORATORY | | | | + + + + + | [facility] | [address] | [place] | | | [facility] | | [address] | | | - LABORATORY | | | | + + + + + documented in this encounter Visit Diagnoses + + | Diagnosis | + + | Squamous cell carcinoma of lung, unspecified laterality (HCC) - Primary | + + documented in this encounter"
--- OUTSIDE RECORDS SUMMARY | ~2019-05-05 | XMS | Encounter Summary ---
Demographics + + + | Address | [address] | | | [place] [address] | + + + | Home Phone [...] [place] | | | | | [address] | | + + + + + Care Team Providers + +------+ + | Care Rehabilitation Coordinator Name | Role | Phone | + +------+ + | Davis Ivan MD | PCP | | + +------+ + Encounter Details +--------+ + + + + | Date | Type | Department | Care Team | Description | +--------+ + + + + | 11/06/ | Orders Only | [facility] | Gurmeet Vargas | Bronchogenic cancer | | 2017 | | PULMONARY [address] | MD [address] | of right lung (HCC) | | | | [place], | [place] [place] | (Primary Dx) | | | | [place] [address] | [place] [address] | | | | | [phone] | [phone] | | | | | | | [...] | | | | | [place] [address] | | | | | | [phone] | | | | | | | | +--------+ + + + + | 06/08/ | Office | Physical Medicine | Rocky Santos, | | | 2019 | Visit | and Rehabilitation | [address] | | | | | | [place] | | | | | | [address] | | | | | | | | +--------+ + + + + | 06/16/ | Appointment | Pulmonology | Eveline Jaffe | | 2019 | | | MD Nichole Carter W | | | | | | [address] [place] | | | | | | [place] [address] | | | | | | [phone] | | | | | | | | +--------+ + + + + | 06/16/ | Office | Pulmonology | Eveline Jaffe | | | 2019 | Visit | | MD Raul [address] | | | | | | [address] | | | | | | [place] [address] | | | | | | [phone] | | | | | | | | +--------+ + + + + | 08/24/ | Office | Cardiology | Anisha Lopez DO | | | 2019 | Visit | | [address] | | | | | | [place] | | | | | | [address] | | | | | | | [...] 10/29/[address] chest 11/30/2015. | [facility] | | FINDINGS: Frontal and lateral views of the chest. [facility] | | chest port in place with [...] + | [facility] | [address] 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
--- OUTSIDE RECORDS SUMMARY | ~2019-05-05 | XMS | Encounter Summary ---
Demographics + + + | Address | [address] | | | [place] [address] | + + + | Home Phone [...] [place] | | | | | [address] | | + + + + + Care Team Providers + +------+ + | Care Sheep Boner Name | Role | Phone | + [...] + + | 03/07/ | Refill | [facility] | Evelyn Leyva | Medication Refill | | 2019 | | RHEUMATOLOGY [address] | MINI [address] | | | | | [place] | [facility] | | | | | [place], [place] | [place] [address] | | | | | [address] | [phone] | | | | | [phone] | | | +--------+--------+ + + + [...] W | | | | | | [facility] | | | | | | [place] [address] | | | | | | [phone] | | | | | | | | +--------+ + + + + | 06/08/ | Office | Physical Medicine | Rocky Santos, | | | 2019 | Visit | and Rehabilitation | [address] | | | | | | [place] | | | | | | [address] | | | | | | | | +--------+ + + + + | 06/16/ | Appointment | Pulmonology | Eveline Jaffe | | | 2019 | | | MD Nichole Carter [address] | | | | | | [address] [place] | | | | | | [place] [address] | | | | | | [phone] | | | | | | | | +--------+ + + + + | 06/16/ | Office | Pulmonology | Eveline Jaffe | | | 2019 | Visit | | MD Nichole Carter [address] | | | | | | [address] [place] | | | | | | [place] [address] | | | | | | [phone] | | | | | | | | +--------+ + + + + | 08/24/ | Office | Cardiology | Anisha Lopez DO | | | 2019 | Visit | | [address] | | | | | | [place] | | | | | | [address] | | | | | | | | +--------+ + + + + documented as of this encounter Visit Diagnoses + + | Diagnosis | + + | Rheumatoid arthritis, involving unspecified site, unspecified rheumatoid factor | | presence (HCC) - Primary | + + documented in this encounter"
--- OUTSIDE RECORDS SUMMARY | ~2019-05-05 | XMS | Encounter Summary ---
Demographics + + + | Address | [address] | | | [place] [address] | + + + | Home Phone [...] [place] | | | | | [address] | | + + + + + Care Team Providers + +------+ + | Care Microeconomics Professor Name | Role | Phone | [...] + + | 06/08/ | Office | [facility] | Offenstein, | Chronic obstructive | | 2016 | Visit | PULMONARY [address] | Ayana Looney MD | pulmonary disease | | | | [place], | | with acute | | | | [place] [address] | | exacerbation (HCC) | | | | [phone] | | (Primary Dx); | | | [...] | | | | | | pneumonitis ([facility]) | +--------+---------+ + + + Social History [...] Do an overnight oxygen test through [facility]. Call the [employer] before yo u pick it up to make sure they have a box available. You will greens picker a box at the [employer]. Do the test on room air. Wear [...] this time. Her cough right now sh suzan describes as fairly acute. She has been [...] Diagnosis Date COPD (chronic obstructive pulmonary disease) ([facility]) on albuterol Spondylolisthesis of cervical region Spinal stenosis has tried cortisone injections Osteoporosis Depression Pneumonia 2009 hospitalized 5 days Rheumatoid arthritis(714.0) ([facility]) on prednisone and methotrexate, Dr. 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 60 tablet 3 Respiratory Therapy Supplies [facility] ResMed S9 auto CPAP 5-9 cm H2O. [...] Chronic obstructive pulmonary disease with acute exacerbation ([facility]) J44.1 491.21 Recent symptoms of exacerbation. We will treat with antibiotics and steroids. 2. Chronic obstructive pulmonary disease, unspecified COPD type ([facility]) J44.9 496 Did not fee l that she improved with use of Tudorza, so we will try putting on 4 times daily Duonebs. In additon, she is due for repeat nocturnal oximetry testing. Overnight oximetry, room air 3. MARCE (obstructive sleep apnea) G47.33 327.23 Mild, and not on CPAP. 4. Recurrent squamous cell carcinoma of lung, right ([facility]) C34.91 162.9 This appears stable currently, without recurrence. 5. Radiation pneumonitis ([facility]) J70.0 508.0 S/p treatment with steroids. She [...] made to ensure accuracy; however, inadvertent computerized track inspecting supervisor errors may be pre sent. documented [...] | | | | | [place] [address] | | | | | | [phone] | | | | | | | | +--------+ + + + + | 06/08/ | Office | Physical Medicine | Rocky Santos, | | | 2019 | Visit | and Rehabilitation | MD [address] | | | | | | [place] | | | | | | [address] | | | | | | | | +--------+ + + + + | 06/16/ | Appointment | Pulmonology | Eveline Jaffe | | | 2019 | | | MD Nichole Carter | | | | | | [address] [place] | | | | | | [place] [address] | | | | | | [phone] | | | | | | | | +--------+ + + + + | 06/16/ | Office | Pulmonology | Eveline Jaffe | | | 2019 | Visit | | MD Nichole Carter | | | | | | [address] [place] | | | | | | [place], [place] [address] | | | | | | [phone] | | | | | | | | +--------+ + + + + | 08/24/ | Office | Cardiology | Anisha Lopez DO | | 2019 | Visit | | [address] | | | | | | [place] | | | | | | [address] | | | | | | | [...]
--- OUTSIDE RECORDS SUMMARY | ~2019-05-05 | XMS | Encounter Summary ---
Demographics + + + | Address | [address] | | | [place] [address] | + + + | Home Phone [...] [place] | | | | | [address] | | + + + + + Care Team Providers + +------+ + | Care Waste Disposal Attendant Name | Role | Phone | [...] [place] | | | | | | [address] | | | | | | [phone] | | | +--------+ + + + [...] | | | | | [facility] | | | | | | [place] [address] | | | | | | [phone] | | | | | | | | +--------+ + + + + | 06/08/ | Office | Physical Medicine | Rocky Santos, | | | 2019 | Visit | and Rehabilitation | MD [address] | | | | | | [place] | | | | | | [address] | | | | | | | | +--------+ + + + + | 06/16/ | Appointment | Pulmonology | Eveline Jaffe | | | 2019 | | | MD [address] | | | | | | [address] [place] | | | | | | [place] [address] | | | | | | [phone] | | | | | | | | +--------+ + + + + | 06/16/ | Office | Pulmonology | Eveline Jaffe | | | 2019 | Visit | | MD Nich[address] Carter | | | | | | [address] | | | | | | [place] [address] | | | | | | [phone] | | | | | | | | +--------+ + + + + | 08/24/ | Office | Cardiology | Anisha Lopez DO | | | 2019 | Visit | | [address] | | | | | | [place] | | | | | | [id number] | | | | | | | | +--------+ + + + + documented as of this encounter Visit Diagnoses Not on filedocumented in this encounter"
--- OUTSIDE RECORDS SUMMARY | ~2019-05-05 | XMS | Encounter Summary ---
Demographics + + + | Address | [address] | | | [place] [address] | + + + | Home Phone [...] [place] | | | | | [address] | | + + + + + Care Team Providers + +------+ + | Care Wedding Decorator Name | Role | Phone | + +------+ + | Davis Ivan MD | PCP | | + +------+ + Encounter Details +--------+ + + + + | Date | Type | Department | Care Team | Description | +--------+ + + + + | 03/17/ | Hospital | [facility] | Conversion | | | 2014 | Encounter | [facility] | Transaction, | | | | | [address] | Provider Unknown | | | | | [facility] [place] | | | | | | [address] | (Fax) | | | | | [phone] | | | +--------+ + + + [...] | | | | | [place] [address] | | | | | | [phone] | | | | | | | | +--------+ + + + + | 06/08/ | Office | Physical Medicine | Rocky Santos, | | | 2019 | Visit | and Rehabilitation | MD [address] | | | | | | [place] | | | | | | [address] | | | | | | | | +--------+ + + + + | 06/16/ | Appointment | Pulmonology | Eveline Jaffe | | 2019 | | | MD [address] | | | | | | [address] | | | | | | [place] [address] | | | | | | [phone] | | | | | | | | +--------+ + + + + | 06/16/ | Office | Pulmonology | Eveline Jaffe | | | 2019 | Visit | | MD Raul [address] | | | | | | [address] | | | | | | [place] [address] | | | | | | [phone] | | | | | | | | +--------+ + + + + | 08/24/ | Office | Cardiology | Anisha Lopez DO | | | 2019 | Visit | | [address] | | | | | | [place] | | | | | | [phone] | | | | | | | | +--------+ + + + + documented as of this encounter Visit Diagnoses Not on filedocumented in this encounter"
--- OUTSIDE RECORDS SUMMARY | ~2019-05-05 | XMS | Encounter Summary ---
Demographics + + + | Address | [address] | | | [place] [address] | + + + | Home Phone [...] [place] | | | | | [address] | | + + + + + Care Team Providers + +------+ + | Care Player Development Executive Name | Role | Phone | [...] + + | 09/11/ | Hospital | [facility] | Adelita Lu MD | Recurrent squamous | | 2015 | Encounter | [facility] | [address] | cell carcinoma of | | | | [facility] [address] | [place] | lung, unspecified | | | | [address] [place] [address] [place] | [address] | laterality (HCC); | | | | [place] [address] | [phone] | Pulmonary nodules | | | | [phone] | | | +--------+ + + + [...] | | | | | [place] [address] | | | | | | [phone] | | | | | | | | +--------+ + + + + | 06/08/ | Office | Physical Medicine | Rocky Santos, | | | 2019 | Visit | and Rehabilitation | MD Nich[address] | | | | | | [place] | | | | | | [address] | | | | | | | | +--------+ + + + + | 06/16/ | Appointment | Pulmonology | Eveline Jaffe | | | 2019 | | | MD Nichole Carter | | | | | | [address] [place] | | | | | | [place] [address] | | | | | | [phone] | | | | | | | | +--------+ + + + + | 06/16/ | Office | Pulmonology | Eveline Jaffe | | | 2019 | Visit | | MD Nichole Carter | | | | | | [address] [place] | | | | | | [place] [address] | | | | | | [phone] | | | | | | | | +--------+ + + + + | 08/24/ | Office | Cardiology | Anisha Lopez DO | | | 2019 | Visit | | [address] | | | | | | [place], [place] | | | | | | [address] | | | | | | | [...]
--- OUTSIDE RECORDS SUMMARY | ~2019-05-05 | XMS | Encounter Summary ---
Demographics + + + | Address | [address] | | | [place] [address] | + + + | Home Phone | | + + + | Preferred Language | Unknown | + + + | Marital Status | Single | + + + | Spiritism Affiliation [...] Providers + +------+ + | Care Engineering And Development Director Name | Role | Phone | [...] [address] | | | | | | [place] | | | | | | [address] | | | +--------+ + + + [...]
--- OUTSIDE RECORDS SUMMARY | ~2019-05-05 | XMS | Encounter Summary ---
Demographics + + + | Address | [address] | | | [place] [address] | + + + | Home Phone [...] [place] | | | | | [address] | | + + + + + Care Team Providers + +------+ + | Care Fleet Service Clerk Name | Role | Phone | [...] | | cell | Ayana B, | [address] [place] | | | | | carcinoma | MD [address] | [place], [place] | | | | | lung (HCC) | [address] | [address] | | | | | Procedures | [place], | Phone: | | | | | PET CT Skull | [place] [address] | [phone] | | | | | Base To Mid | | Fax: | | | | | Thigh | | [phone] | +--------+--------+ + + + + Reason [...] | | cell | Ayana Looney, | [address] [place] | | | | | carcinoma | MD [address] | [place], [place] | | | | | lung (HCC) | [address] | [address] | | | | | Procedures | [place], | Phone: | | | | | PET CT Skull | [place] [address] | [phone] | | | | | Base To Mid | | Fax: | | | | | Thigh | | [phone] | +--------+--------+ + + + + Encounter Details +--------+ + + + + | Date | Type | Department | Care Team | Description | +--------+ + + + + | 08/11/ | Hospital | [facility] | Offenstein, | Squamous cell | | 2013 | Encounter | [facility] PET SCAN | Ayana Looney MD | carcinoma lung (HCC) | | | | [address] [place] | | | | | | [place] [address] | | | | | | [phone] | | | +--------+ + + + [...] with results placed. documented in this encounter Plan of Treatment +--------+ + + + + | Date | Type | Specialty | Care Team | Description | +--------+ + + + + | 05/30/ | Office | Rheumatology | Santosh Sumner, | | | 2018 | Visit | | [address] | | | | | | [facility] | | | | | | [place] [address] | | | | | | [phone] | | | | | | | | +--------+ + + + + | 06/08/ | Office | Physical Medicine | Rocky Santos, | | | 2019 | Visit | and Rehabilitation | MD Nichole [address] | | | | | | [place] | | | | | | [address] | | | | | | | | +--------+ + + + + | 06/16/ | Appointment | Pulmonology | Eveline Jaffe | | | 2019 | | | MD Nichole Carter | | | | | | [address] [place] | | | | | | [place] [address] | | | | | | [phone] | | | | | | | | +--------+ + + + + | 06/16/ | Office | Pulmonology | Eveline Jaffe | | | 2019 | Visit | | MD Nichole Carter | | | | | | [address] [place] | | | | | | [place] [address] | | | | | | [phone] | | | | | | | | +--------+ + + + + | 08/24/ | Office | Cardiology | Anisha Lopez DO | | | 2019 | Visit | | [address] | | | | | | [place] [facility] [place] | | | | | | [address] | | | | | | | [...] + -----+ | PET CT SKULL | [place] | | BASE TO MID THIGH [...] x 2.1 cm (CT image 56, PET [id number]). Maximum | | | SUV is 6.26, [...] + | Raoul Lockwood Results In - 08/12/2013 9:51 AM PDT [...] cm | | (CT image 56, PET [id number]). Maximum SUV is 6.26, consistent with the [...] + | MISCELLANEOUS LAB | | | [phone] | + +---------+ + + | MISCELANIOUS LAB | | | [phone] | + +---------+ + + documented in [...] fluorine-18 FDG injection 10.3 | Given | 08/11/ | 10.3 | | | | millicurie 10.3 -millicurie, | | 14 2:44 | -millicu | | | | Intravenous, ONCE, Adele 3/13/14 at | | PM PDT | lenka | | | | 1715, For 1 dose | | | | | | + +--------+ + +------+------+ +---+---+ | | | +---+---+ documented in this encounter"
--- OUTSIDE RECORDS SUMMARY | ~2019-05-05 | XMS | Encounter Summary ---
Demographics + + + | Address | [address] | | | [place] [address] | + + + | Home Phone [...] [place] | | | | | [address] | | + + + + + [...] [place] [address] | | | | | [phone] | [place] [address] | | +--------+ + + + + [...] | | | | | [place] [address] | | | | | | [phone] | | | | | | | | +--------+ + + + + | 06/08/ | Office | Physical Medicine | Rocky Santos, | | | 2019 | Visit | and Rehabilitation | MD [address] | | | | | | [place] | | | | | | [address] | | | | | | | | +--------+ + + + + | 06/16/ | Appointment | Pulmonology | Eveline Jaffe | | 2019 | | | MD [address] | | | | | | [address] | | | | | | [place] [address] | | | | | | [phone] | | | | | | | | +--------+ + + + + | 06/16/ | Office | Pulmonology | Eveline Jaffe | | | 2019 | Visit | | MD Raul [address] | | | | | | [place] | | | | | | [place] [address] | | | | | | [phone] | | | | | | | | +--------+ + + + + | 08/24/ | Office | Cardiology | Anisha Lopez DO | | | 2019 | Visit | | [address] | | | | | | [place] | | | | | | [address] | | | | | | | [...] + documented in this encounter Results MRI Shoulder Left wo Contrast (03/15/2019 12:00 [...]
--- OUTSIDE RECORDS SUMMARY | ~2019-05-05 | XMS | Encounter Summary ---
Demographics + + + | Address | [address] | | | [place] [address] | + + + | Home Phone [...] [place] | | | | | [address] | | + + + + + Care Team Providers + +------+ + | Care Podiatric Surgeon Name | Role | Phone | + [...] | | Procedures | Epi Gaston | [facility] | | | | | F/U - APPT | [place], | [place] | | | | | [address] | [place] [address] | [address] Phone: | | | | | JONATHAN | Phone: | [phone] | | | | | | [phone] | Fax: | | | | | | Fax: | [phone] | | | | | | [phone] | | + +--------+ + + + + Encounter Details +--------+---------+ + + + | Date | Type | Department | Care Team | Description | +--------+---------+ + + + | 03/16/ | Office | [facility] | Eveline Jaffe | Dyspnea on exertion | | 2019 | Visit | PULMONARY [address] | MD Raul [address] | (Primary Dx); | | | | [place], | [address] [place] | Chronic obstructive | | | | [place] [address] | [place] [address] | pulmonary disease, | | | | [phone] | [phone] | unspecified COPD | | | | [...] solution 3 mL Pulmonary function test [facility] COPD We will need repeat pulmonary [...] outside imaging. More than 30 minutes spent cbto-vs-kcst with patient with more than half the [...] | | | | | [place] [address] | | | | | | [phone] | | | | | | | | +--------+ + + + + | 06/08/ | Office | Physical Medicine | Rocky Santos, | | | 2019 | Visit | and Rehabilitation | MD [address] | | | | | | [place] | | | | | | [address] | | | | | | | | +--------+ + + + + | 06/16/ | Appointment | Pulmonology | Eveline Jaffe | | 2019 | | | MD [address] | | | | | | [address] | | | | | | [place] [address] | | | | | | [phone] | | | | | | | | +--------+ + + + + | 06/16/ | Office | Pulmonology | Eveline Jaffe | | | 2019 | Visit | | MD Raul [address] | | | | | | [address] [place] | | | | | | [place] [address] | | | | | | [phone] | | | | | | | | +--------+ + + + + | 08/24/ | Office | Cardiology | Anisha Lopez DO | | | 2019 | Visit | | [address] | | | | | | [place] | | | | | | [address] | | | | | | | [...]
--- OUTSIDE RECORDS SUMMARY | ~2019-05-05 | XMS | Clinical Summary ---
Demographics + + + | Address | [address] | | | [place] [address] | + + + | Home Phone | | + + + | Preferred Language | Unknown | + + + | Marital Status | | + + + | Orthodox Affiliation | Unknown | + + + | Race | Unknown | + + + | Ethnic Group | Unknown | + + + Author + + + | Author | [facility] (Historical as of | | | 01-15-19) | + + + | Organization | [facility] (Historical as of | | | 01-15-19) [...] Team Providers + +------+ + | Care Track Inspecting Supervisor Name | Role | Phone | [...] + + | CVA (cerebral vascular accident) ([facility] | 12/14/2018 | + + [...] | 2.CT-guided biopsy by interventional radiology at [facility] of the | | right lung massshows [...] Beltran , thoracic surgeon at | | [facility] for consideration of bronchoscopy, right [...] in August 20149. | | Admitted to [facility] on September 27, 2014 for | | right-sided chest pain secondary to acute bronchitis.10. CT chest | | [facility] on September 28, 2014 demonstrated persistent | | 32 mm x 26 mm x 27 mm Right Hilar Mass.Last Assessment & Plan: | | Stephanie returned to the [facility] | | on November 09, 2014 for follow up of her locally recurrent RIGHT | | Lung cancer. Interval history is notable for the fact that Thea | | was admitted to [facility] in [place], [place] for | | acute exacerbation of chronic bronchitis. During her | | hospitalization there, a chest CT was performed demonstrating a | | persistent 32 x 26 mm right hilar mass. These images were | | reviewed subsequently at the [facility] on their PACS | | system. [...] | | persistent disease. PET/CT schedule at [facility] on December 21, 2014 | | with follow up at [facility] the following week. | + + + [...] | N/A: | | | 08/20/ | [id number] | | Dbx 2.5ml - | | Spine | | | 2015 | | | [id number]: | | Cervic | | | | /[id number] | | Qty: 1 on 01/19/2013 by | | joann | | | | [id number] | | Silviano Cabrera MD | | | | | | [id number] | | | | | | | | 8 / | + +------+--------+ +--------+--------+--------+ | Cage Triad Allograft | | N/A: | | | 08/16/ | [id number] | | [id number] | | Spine | | | 2018 | 7 | | [id number]: Qty: 1 | | Cervic | | | | /[id number] | | on 01/19/2013 by Rick, | Tim david | | | | 8-185 | | MD Silviano | | | | | | / | + +------+--------+ +--------+--------+--------+ | Cage Triad Allograft 6mm - | | N/A: | | | 06/23/ | [id number] | | [id number]: Qty: 1 | | Spine | | | 2018 | 6 | | on 01/19/2013 by Rick, | | Cervic | | | | /39269 | | MD Silviano | | al | | | | 0-206 | | | | | | | | / | + +------+--------+ +--------+--------+--------+ | Screw Vectra Self Drilling | | N/A: | | | | 04.613 | | Variable Angle 4.0x14mm - | | Spine | | | | .514 | | [id number]: Qty: 2 on | | Cervic | | | | /[id number] | | 01/19/2013 by Silviano Cabrera, | | al | | | | 514 / | | MD | | | | | | | + +------+--------+ +--------+--------+--------+ | Screw Vectra Self Drilling | | N/A: | | | | 04.613 | | Variable Angle [id number] - | | Spine | | | | .516 | | [id number]: Qty: 2 on | | Cervic | | | | /87710 | | 01/19/2013 by Silviano Cabrera, | | al | | | | 516 / | | MD | | | | | | | + +------+--------+ +--------+--------+--------+ | Screw Vectra Self Drilling | | N/A: | | | | 04.613 | | Fixed Angle 4.0x14mm - | | Spine | | | | .714 | | [id number]: Qty: 2 on | | Cervic | | | | /88068 | | 01/19/2013 by Silviano Cabrera, | | al | | | | 714 / | | MD | | | | | | | + +------+--------+ +--------+--------+--------+ | Plate Vectra Cervical 30mm - | | N/A: | | | | 04.613 | | [id number]: Qty: 1 on | | Spine | | | | .130 | | 01/19/2013 by Silviano Cabrera, | | Cervic | | | | /66468 | | MD | | al | | | | 130 / | + +------+--------+ +--------+--------+--------+ | Allograft Putty Freeze Dried | | N/A: | | | 10/20/ | 637339 | | Dbx 2.5ml - | | Spine | | | 2014 | | | [id number]: | | Cervic | | | | /69528 | | Qty: 1 on 04/06/2013 by | | al | | | | [id number] | | Silviano Cabrera MD | | | | | | 164590 | | | | | | | | 3 / | + +------+--------+ +--------+--------+--------+ | Screw Vuepoint Post Cerv | | N/A: | | | | 803163 | | 3.5x12mm - [id number]: | | Spine | | | | 2 | | Qty: 3 on 04/06/2013 by | | Altagraciaic | | | | /04701 | | Silviano Cabrera MD | | al | | | | 12 / | + +------+--------+ +--------+--------+--------+ | Screw Vuepoint Post Cerv | | N/A: | | | | 569083 | | 3.5x14mm - [id number]: | | Spine | | | | 4 | | Qty: 1 on 04/06/2013 by | | Cervic | | | | /54734 | | Silviano Cabrera MD | | al | | | | 14 / | + +------+--------+ +--------+--------+--------+ | Srini Vuepoint 3.5x60mm - | | N/A: | | | | 436883 | | [id number]: Qty: 1 on | | Spine | | | | 0 | | 04/06/2013 by Silviano Cabrera, | | Cervic | | | | /96175 | | MD | | al | | | | 60 / | + +------+--------+ +--------+--------+--------+ | Screw Vuepoint Post Cerv Set | | N/A: | | | | 043296 | | Tulip & Hook - | | Spine | | | | 0 | | [id number]: Qty: 4 on | | Cervic | | | | /14714 | | 04/06/2013 by Silviano Cabrera, | | al | | | | 00 / | | MD | | | | | | | + +------+--------+ +--------+--------+--------+ | Allograft Osteocell 10cc | | | | | 08/25/ | [id number] | | [id number] - | | | | | 2018 | 0 | | [id number]: Qty: 1 | | | | | | /[id number] | | on 04/06/2013 | | | | | | 1542 / | + +------+--------+ +--------+--------+--------+ | Allograft Putty Freeze Dried | | N/A: | | | 11/10/ | [id number] | | Demineralized Bone Matrix Dbx | | Spine | | | 2014 | | | 1ml - | | Cervic | | | | /71280 | | [id number]: | | al | | | | [id number] | | Qty: 1 on 04/06/2013 by | | | | | | [id number] | | Silviano Cabrera MD | | | | | | 1 / | + +------+--------+ +--------+--------+--------+ | Graft Sponge Kit Bone Infuse | | | MEDTRONIC | | | 616404 | | Medium 56ml - | | | | | | 0 / | | [id number]: Qty: 1 on | | | | | | /[id number] | | 03/29/2014 by Silviano Cabrera, | | | | | | 05AA6 | | MD | | | | | | | + +------+--------+ +--------+--------+--------+ | Triad Alif Allograft | | | NUVASIVE | | 08/02/ | 089402 | | [id number]: Qty: 1 on | | | | | 2018 | 4 | | 03/29/2014 by Silviano Cabrera, | | | | | | /78211 | | MD | | | | | | 0-065 | | | | | | | | / | + +------+--------+ +--------+--------+--------+ | Screw Brigade 5.5x25mm - | | | NUVASIVE | | | 970292 | | [id number]: Qty: 2 on | | | | | | / / | | 03/29/2014 by Silviano Cabrera, | | | | | | | | MD | | | | | | | + +------+--------+ +--------+--------+--------+ | Screw Brigade 5.5x30mm - | | | NUVASIVE | | | [id number] | | [id number]: Qty: 4 on | | | | | | 0 / / | | 03/29/2014 by Silviano Cabrera, | | | | | | | | MD | | | | | | | + +------+--------+ +--------+--------+--------+ | Evelyne Batista Allograft | | | NUVASIVE | | 07/14/ | [id number] | | [id number] - | | | | | 2012 | 2 / / | | [id number]: Qty: 1 on | | | | | | | | 03/29/2014 by Silviano Cabrera, | | | | | | | | MD | | | | | | | + +------+--------+ +--------+--------+--------+ | Svetlana Iraheta 5.5x35mm - | | | NUVASIVE | | | [id number] | | [id number]: Qty: 2 on | | | | | | 5 / / | | 03/29/2014 by Silviano Cabrera, | | | | | | | | MD | | | | | | | + +------+--------+ +--------+--------+--------+ | Allograft Block Extra Large | | N/A: | NUVASIVE | | 09/27/ | [id number] | | Formagraft Large - | | Back | | | 2018 | 5 / | | [id number]: Qty: 1 on | | | | | | /FG-14 | | 03/29/2014 by Silviano Cabrera, | | | | | | 13 | | MD | | | | | | | + +------+--------+ +--------+--------+--------+ | Graft Sponge Kit Bone Infuse | | N/A: | MEDTRONIC | | 08/27/ | [id number] | | Large 8ml - | | Back | | | 2015 | 0 / | | [id number]: Qty: 1 on | | | | | | /[id number] | | 03/29/2014 by Silviano Cabrera, | | | | | | 06AAY | | | | | | | | | + +------+--------+ +--------+--------+--------+ | Allograft Freeze Dried | | N/A: | LIFENET | | 11/13/ | [id number] | | Demineralized Cancellous Mix | | Spine | HEALTH | | 2016 | T | | Ic Graft Chamber 15cc - | | Lumbar | | | | /22759 | | [id number]: Qty: | | | | | | 57-303 | | 1 on 03/31/2014 by Rick, | | | | | | 1 / | | MD Silviano | | | | | | | + +------+--------+ +--------+--------+--------+ | Graft Sponge Kit Bone Infuse | | N/A: | MEDTRONIC | | 04/01/ | [id number] | | Medium 56ml - | | Spine | | | 2014 | 0 | | [id number]: Qty: 1 | | Lumbar | | | | /[id number] | | on 03/31/2014 by Rick, | | | | | | 05AAW | | MD Silviano | | | | | | / | + +------+--------+ +--------+--------+--------+ | Allograft Freeze Dried | | N/A: | LIFENET | | 11/01/ | [id number] | | Demineralized Cancellous Mix | | Spine | HEALTH | | 2016 | T | | Ic Graft Chamber 15cc - | | Lumbar | | | | /83106 | | [id number]: Qty: | | | | | | 37-301 | | 1 on 03/31/2014 by Rick, | | | | | | 1 / | | MD Silviano | | | | | | | + +------+--------+ +--------+--------+--------+ | Screw Precept Shank Mod | | N/A: | NUVASIVE | | | [id number] | | 7.5x50mm - [id number]: | | Spine | | | | 0 / / | | Qty: 4 on 03/31/2014 by | | Lumbar | | | | | | Silviano Cabrera MD | | | | | | | + +------+--------+ +--------+--------+--------+ | Screw Precept Shank Mod | | N/A: | NUVASIVE | | | [id number] | | 6.5x50mm - [id number]: | | Spine | | | | 0 / / | | Qty: 2 on 03/31/2014 by | | Lumbar | | | | | | Silviano Cabrera MD | | | | | | | + +------+--------+ +--------+--------+--------+ | Screw Locking For 6.25mm Srini | | N/A: | NUVASIVE | | | [id number] | | - [id number]: Qty: 6 | | Spine | | | | 1 / / | | on 03/31/2014 by Rick, | | Lumbar | | | | | | MD Silviano | | | | | | | + +------+--------+ +--------+--------+--------+ | Screw Tulip For 6.25mm Srini - | | N/A: | NUVASIVE | | | [id number] | | [id number]: Qty: 6 on | | Spine | | | | 2 / / | | 03/31/2014 by Silviano Cabrera, | | Lumbar | | | | | | | | | | | | | + +------+--------+ +--------+--------+--------+ | Allograft Freeze Dried | | N/A: | LIFENET | | 11/08/ | [id number] | | Demineralized Cancellous Mix | | Spine | HEALTH | | 2017 | T | | Ic Graft Chamber 15cc - | | Lumbar | | | | /14243 | | [id number]: Qty: | | | | | | 98-303 | | 1 on 03/31/2014 by Rick, | | | | | | 9 / | | MD Silviano | | | | | | | + +------+--------+ +--------+--------+--------+ | Allograft Freeze Dried | | N/A: | LIFENET | | 08/16/ | [id number] | | Demineralized Cancellous Mix | | Spine | HEALTH | | 2016 | T | | Ic Graft Chamber 10cc - | | Lumbar | | | | /68515 | | [id number]: Qty: | | | | | | 22-301 | | 1 on 03/31/2014 by Rick, | | | | | | 3 / | | MD Silviano | | | | | | | + +------+--------+ +--------+--------+--------+ | Allograft Freeze Dried | | N/A: | LIFENET | | 07/13/ | [id number] | | Demineralized Cancellous Mix | | Spine | HEALTH | | 2016 | T | | Ic Graft Chamber 5cc - | | Lumbar | | | | /94351 | | [id number]: Qty: | | | | | | 40-301 | | 1 on 03/31/2014 by Rick, | | | | | | 1 / | | MD Silviano | | | | | | | + +------+--------+ +--------+--------+--------+ | Srini Spherx Dual Ball Ti Dbr | | N/A: | NUVASIVE | | | [id number] | | Ii 42.5mm - | | Spine | | | | / | | [id number]: Qty: 2 on | | Lumbar | [...] [place] - [place] | [place] - | [id number] | Medica | | | | | [...] +--------+-------+ + | MEDICAID | EASTER | [id number] | | | [address] | | | N | | | | [place] | | | [place] | | | | [address] | | | FUEL HANDLER | | | | | + +--------+ [...] | | al/Fam | | [phone] | [phone] | [place] | | | jana | | | [phone] | [phone] | + +--------+ +--------+ + +
--- OUTSIDE RECORDS SUMMARY | ~2019-05-05 | XMS | Encounter Summary ---
Demographics + + + | Address | [address] | | | [place] [address] | + + + | Home Phone [...] [place] | | | | | [address] | | + + + + + Care Team Providers + +------+ + | Care Mail Order Sorter Name | Role | Phone | [...] | needle biopsy) | | | | [place], | | | | | | [place] [address] | | | | | | [phone] | | | +--------+ + + + [...] | | | | | [place] [address] | | | | | | [phone] | | | | | | | | +--------+ + + + + | 06/08/ | Office | Physical Medicine | Rocky Santos, | | | 2019 | Visit | and Rehabilitation | MD [address] | | | | | | [place] | | | | | | [address] | | | | | | | | +--------+ + + + + | 06/16/ | Appointment | Pulmonology | Eveline Jaffe | | | 2019 | | | MD [address] | | | | | | [address] | | | | | | [place] [address] | | | | | | [phone] | | | | | | | | +--------+ + + + + | 06/16/ | Office | Pulmonology | Eveline Jaffe | | | 2019 | Visit | | MD Nichole Carter | | | | | | [address] | | | | | | [place] [address] | | | | | | [phone] | | | | | | | | +--------+ + + + + | 08/24/ | Office | Cardiology | Anisha Lopez DO | | | 2019 | Visit | | [address] | | | | | | [place] | | | | | | [phone] | | | | | | | | +--------+ + + + + documented as of this encounter Visit Diagnoses Not on filedocumented in this encounter"
--- OUTSIDE RECORDS SUMMARY | ~2019-05-05 | XMS | Encounter Summary ---
Demographics + + + | Address | [address] | | | [place] [address] | + + + | Home Phone [...] Team Providers + +------+ + | Care Masonry Contractor Administrator Name | Role | Phone | [...] [place] | | | | | [phone] | [place] [address] | | +--------+ + + + + [...] | | | | | [place] [address] | | | | | | [phone] | | | | | | | | +--------+ + + + + | 06/08/ | Office | Physical Medicine | Rocky Santos | | | 2019 | Visit | and Rehabilitation | MD [address]is | | | | | | [place] | | | | | | [address] | | | | | | | | +--------+ + + + + | 06/16/ | Appointment | Pulmonology | Eveline Jaffe | | 2019 | | | MD [address] | | | | | | [address] | | | | | | [place] [address] | | | | | | [phone] | | | | | | | | +--------+ + + + + | 06/16/ | Office | Pulmonology | Eveline Jaffe | | | 2019 | Visit | | MD Raul [address] | | | | | | [place] | | | | | | [place] [address] | | | | | | [phone] | | | | | | | | +--------+ + + + + | 08/24/ | Office | Cardiology | Anisha Lopez DO | | | 2019 | Visit | | [address] | | | | | | [place] | | | | | | [address] | | | | | | | [...]
--- OUTSIDE RECORDS SUMMARY | ~2019-05-05 | XMS | Encounter Summary ---
Demographics + + + | Address | [address] | | | [place] [address] | + + + | Home Phone [...] [place] | | | | | [address] | | + + + + + Care Team Providers + +------+ + | Care Help Desk Supervisor Name | Role | Phone | [...] Looney MD | | | | | [place], | | | | | | [place] [address] | | | | | | [phone] | | | +--------+ + + + [...] | | | | [facility] | | | | | | [place] [address] | | | | | | [phone] | | | | | | | | +--------+ + + + + | 06/08/ | Office | Physical Medicine | Rocky Santos, | | | 2019 | Visit | and Rehabilitation | [address] | | | | | | [place] | | | | | | [address] | | | | | | | | +--------+ + + + + | 06/16/ | Appointment | Pulmonology | Eveline Jaffe | | | 2019 | | | MD [address] | | | | | | [address] [place] | | | | | | [place] [address] | | | | | | [phone] | | | | | | | | +--------+ + + + + | 06/16/ | Office | Pulmonology | Eveline Jaffe | | | 2019 | Visit | | MD [address]ole [address] | | | | | | [address] [place] | | | | | | [place] [address] | | | | | | [phone] | | | | | | | | +--------+ + + + + | 08/24/ | Office | Cardiology | Anisha Lopez DO | | | 2019 | Visit | | [address] | | | | | | [place] | | | | | | [address] | | | | | | | | +--------+ + + + + documented as of this encounter Visit Diagnoses Not on filedocumented in this encounter"
--- OUTSIDE RECORDS SUMMARY | ~2019-05-05 | XMS | Encounter Summary ---
Demographics + + + | Address | [address] | | | [place] [address] | + + + | Home Phone [...] [place] | | | | | [address] | | + + + + + Care Team Providers + +------+ + | Care Store Product Demonstrator Name | Role | Phone [...] / | Malignant | Davis | Ayana Lonoey, | | | | Pulmonology | neoplasm of | MD [address] | | | | | | bronchus and | [address] | | | | | | lung, | [address] | | | | | | unspecified | [place], | | | | | | site | [place] | | | | | | Procedures | [address] | | | | | | OFFICE VISIT | Phone: | | | | | | REGULAR | [phone] | | | | | | | Fax: | | | | | | | [phone] | | +--------+--------+ + + + + Encounter Details +--------+---------+ + + + | Date | Type | Department | Care Team | Description | +--------+---------+ + + + | 12/09/ | Office | [facility] [place] | Alfredenstein, | COPD (chronic | | 2013 | Visit | PULMONARY [address] | Ayana Looney MD | obstructive | | | | [place], | | pulmonary disease) | | | | [place] [address] | | (Primary Dx); MARCE | | | | [phone] | | (obstructive sleep | | | [...] and debility. She was discharged from physical [facility]. She tries to walk around the house quite a bit. She has not been using the CPAP, which she attributes to her hospital stay. She reports dave t she would like to get back on this. Past Medical History Past Medical History Diagnosis Date COPD (chronic obstructive pulmonary disease) ([facility]LY [facility]) on albuterol Spondylolisthesis of cervical region Spinal stenosis has tried cortisone injections Osteoporosis Depression Pneumonia 2008 hospitalized 5 days Rheumatoid arthritis(714.0) ([facility]LY [facility]) on prednisone [facility]ot[facility]ate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 Respiratory Therapy Supplies Adapx ResMed S9 auto CPAP 5-9 cm H2O. [...] Data: CPAP Data: Dates: 09/27-10/26/13 Machine type: [employer] S9 auto CPAP Home Health Company: In [...] but she is not being [facility] at [facility]. I reviewed medication use today with [...] made to ensure accuracy; however, inadvertent computerized member services representative errors may be pre sent. Electronically signed by: Ayana Taylor MD 12/09/2013 14:43 documented in t his encounter Plan of Treatment +--------+ + + + + | Date | Type | Specialty | Care Team | Description | +--------+ + + + + | 05/30/ | Office | Rheumatology | Santosh Sumner, | | | 2018 | Visit | | [address] | | | | | | [facility] | | | | | | [place] [address] | | | | | | [phone] | | | | | | | | +--------+ + + + + | 06/08/ | Office | Physical Medicine | Rocky Santos, | | | 2019 | Visit | and Rehabilitation | MD [address] | | | | | | [place] | | | | | | [address] | | | | | | | | +--------+ + + + + | 06/16/ | Appointment | Pulmonology | Eveline Jaffe | | | 2019 | | | MD [address] | | | | | | [address] [place] | | | | | | [place] [address] | | | | | | [phone] | | | | | | | | +--------+ + + + + | 06/16/ | Office | Pulmonology | Eveline Jaffe | | | 2019 | Visit | | MD [address] | | | | | | [address] [place] | | | | | | [place] [address] | | | | | | [phone] | | | | | | | | +--------+ + + + + | 08/24/ | Office | Cardiology | Anisha Lopez DO | | | 2019 | Visit | | [address] | | | | | | [place], [place] | | | | | | [address] | | | | | | | [...]
--- OUTSIDE RECORDS SUMMARY | ~2019-05-05 | XMS | Encounter Summary ---
Demographics + + + | Address | [address] | | | [place] [address] | + + + | Home Phone [...] [place] | | | | | [address] | | + + + + + Care Team Providers + +------+ + | Care Engineer Remote Control Diesel Name | Role | Phone | + [...] + + | 09/04/ | Hospital | [facility] | Jimmy Banegas DO | | | 2015 | Encounter | MED CTR RADIATION | [address] | | | | | ONCOLOGY [address] | [place] | | | | | [place], | [address] | | | | | [place] [address] | | | | | | [phone] | | | +--------+ + + + [...] | | | | | [place] [address] | | | | | | [phone] | | | | | | | | +--------+ + + + + | 06/08/ | Office | Physical Medicine | Rocky Santos, | | | 2019 | Visit | and Rehabilitation | MD [address] | | | | | | [place] | | | | | | [address] | | | | | | | | +--------+ + + + + | 06/16/ | Appointment | Pulmonology | Eveline Jaffe | | 2019 | | | MD [address] | | | | | | [address] | | | | | | [place] [address] | | | | | | [phone] | | | | | | | | +--------+ + + + + | 06/16/ | Office | Pulmonology | Eveline Jaffe | | | 2019 | Visit | | MD Raul [address] | | | | | | [address] [address] | | | | | | [place] [address] | | | | | | [phone] | | | | | | | | +--------+ + + + + | 08/24/ | Office | Cardiology | Anisha Lopez DO | | | 2019 | Visit | | [address] | | | | | | [place] | | | | | | [address] | | | | | | | | +--------+ + + + + documented as of this encounter Visit Diagnoses Not on filedocumented in this encounter"
--- OUTSIDE RECORDS SUMMARY | ~2019-05-05 | XMS | Encounter Summary ---
Demographics + + + | Address | [address] | | | [place] [address] | + + + | Home Phone [...] [place] | | | | | [address] | | + + + + + Care Team Providers + +------+ + | Care Consultants Intern Name | Role | Phone | + +------+ + | Davis Ivan MD | PCP | | + +------+ + Encounter Details +--------+ + + + + | Date | Type | Department | Care Team | Description | +--------+ + + + + | 09/07/ | Hospital | [facility] | Offenstein, | Leg edema, left | | 2015 | Encounter | MED CTR ULTRASOUND | Ayana Looney MD | | | | | [address] | Marilee [address]ardo | | | | | [place] | A, Technologist | | | | | [address] | [place] | | | | | [phone] | [address] | | +--------+ + + + + [...] | | | | | [place] [address] | | | | | | [phone] | | | | | | | | +--------+ + + + + | 06/08/ | Office | Physical Medicine | Rocky Santos, | | | 2019 | Visit | and Rehabilitation | MD [address] | | | | | | [place] | | | | | | [address] | | | | | | | | +--------+ + + + + | 06/16/ | Appointment | Pulmonology | Eveline Jaffe | | | 2019 | | | MD [address] | | | | | | [address] | | | | | | [place] [address] | | | | | | [phone] | | | | | | | | +--------+ + + + + | 06/16/ | Office | Pulmonology | Ld Eveline | | | 2019 | Visit | | MD Raul [address] | | | | | | [address] | | | | | | [place] [address] | | | | | | [phone] | | | | | | | | +--------+ + + + + | 08/24/ | Office | Cardiology | Anisha Lopez DO | | | 2019 | Visit | | [address] | | | | | | [place] | | | | | | [address] | | | | | | | | +--------+ + + + + documented as of this encounter Procedures + +--------+ + + + | Procedure Name | Priori | Date/Time | Associated Diagnosis | Comments | | | ty | | | | + +--------+ + + + | VAS LOWER EXTREMITY | STAT | 09/07/2014 | Leg edema, left | Results for this | | VENOUS LEFT | | 4:00 PM | | procedure are in the | | | | PDT | | results section. | + +--------+ + + + documented in this encounter Results VAS Lower Extremity Venous Left (09/07/2014 4:00 PM PDT) + + | Specimen | + + | | + + + + + | Narrative | Performed At | + + + | VAS LOWER EXTREMITY VENOUS LEFT 09/07/2014 3:37 PM HISTORY: New | [facility] | | onset of left lower extremity [...] | Claudia's nurse 1604 p.m. by the hr generalist. Dictated and | | | Signed by: [...] Dr. Ayana Taylor's nurse 1604 p.m. bythe hr generalist.Dictated and Signed by: | | Matheus Kapadia [...] Taylor's nurse 1604 p.m. by | |the hr generalist. | | | |Dictated and Signed by: Matheus Kapadia MD | | Electronically signed: 09/07/2014 4:43 PM | + + + + + + + | Performing | Address | City/State/Zipcode | Phone Number | | Organization | | | | + + + + + | [facility] | [address] | [place] | [phone] | | [facility] | | [address] | | | - IMAGING | | | | + + + + + documented in this encounter Visit Diagnoses + + | Diagnosis | + + | Leg edema, left Edema | + + documented in this encounter"
--- OUTSIDE RECORDS SUMMARY | ~2019-05-05 | XMS | Encounter Summary ---
Demographics + + + | Address | [address] | | | [place] [address] | + + + | Home Phone [...] [place] | | | | | [address] | | + + + + + Care Team Providers + +------+ + | Care Manager Electrical Name | Role | Phone | + [...] + + + + | 08/24/ | [facility] | [facility] | Claudia, | Shortness of breath | | 2014 | Encounter | MED CTR PULMONARY | Ayana Looney MD | on exertion | | | | FUNCTION [address] | | | | | | [place], | | | | | | [place] [address] | | | | | | [phone] | | | +--------+ + + + [...] | | | | | [place] [address] | | | | | | [phone] | | | | | | | | +--------+ + + + + | 06/08/ | Office | Physical Medicine | Rocky Santos, | | | 2019 | Visit | and Rehabilitation | MD [address] | | | | | | [place] | | | | | | [address] | | | | | | | | +--------+ + + + + | 06/16/ | Appointment | Pulmonology | Eveline Jaffe | | | 2019 | | | MD [address] | | | | | | [address] | | | | | | [place] [address] | | | | | | [phone] | | | | | | | | +--------+ + + + + | 06/16/ | Office | Pulmonology | SoilacurtisEveline | | | 2019 | Visit | | MD [address] | | | | | | [address] | | | | | | [place] [address] | | | | | | [phone] | | | | | | | | +--------+ + + + + | 08/24/ | Office | Cardiology | Anisha Lopez DO | | 2019 | Visit | | [address] | | | | | | [place] | | | | | | [address] | | | | | | | [...]
--- OUTSIDE RECORDS SUMMARY | ~2019-05-05 | XMS | Encounter Summary ---
Demographics + + + | Address | [address] | | | [place] [address] | + + + | Home Phone [...] [place] | | | | | [address] | | + + + + + Care Team Providers + +------+ + | Care Deposit Refund Clerk Name | Role | Phone | [...] | | | | | [address] | [facility] | | | | | [place] | [place] [address] | | | | | [address] | [phone] | | | | | [phone] | | | +--------+ + + + [...] | 2018 | Visit | | [address] | | | | | | [facility] | | | | | | [place] [address] | | | | | | [phone] | | | | | | | | +--------+ + + + + | 06/08/ | Office | Physical Medicine | Rocky Santos, | | | 2019 | Visit | and Rehabilitation | MD [address] | | | | | | [place] | | | | | | [address] | | | | | | | | +--------+ + + + + | 06/16/ | Appointment | Pulmonology | Eveline Jaffe | | 2019 | | | MD Nichole Carter | | | | | | [address] [place] | | | | | | [place] [address] | | | | | | [phone] | | | | | | | | +--------+ + + + + | 06/16/ | Office | Pulmonology | Eveline Jaffe | | | 2019 | Visit | | MD Nichole Carter | | | | | | [address] [place] | | | | | | [place] [address] | | | | | | [phone] | | | | | | | | +--------+ + + + + | 08/24/ | Office | Cardiology | Lopez, Anisha, DO | | | 2020 | Visit | | [address] | | | | | | [place] | | | | | | [address] | | | | | | | | +--------+ + + + + documented as of this encounter Visit Diagnoses Not on filedocumented in this encounter"
--- OUTSIDE RECORDS SUMMARY | ~2019-05-05 | XMS | Encounter Summary ---
Demographics + + + | Address | [address] | | | [place] [address] | + + + | Home Phone [...] [place] | | | | | [address] | | + + + + + Care Team Providers + +------+ + | Care Preparation Supervisor Canning Name | Role | Phone | + [...] + + | 04/25/ | Telephone | [facility] | Rocky Santos, | Results, Imaging | | 2019 | | PHYSIATRY [address] | MD [address] | | | | | [place], | [place] | | | | | [place] [address] | [address] | | | | | [phone] | | | +--------+ + + + [...] | | | | | [place] [address] | | | | | | [phone] | | | | | | | | +--------+ + + + + | 06/08/ | Office | Physical Medicine | Rocky Santos, | | | 2019 | Visit | and Rehabilitation | [address] | | | | | | [place] | | | | | | [address] | | | | | | | | +--------+ + + + + | 06/16/ | Appointment | Pulmonology | Eveline Jfafe | | 2019 | | | MD [address] | | | | | | [address] [place] | | | | | | [place] [address] | | | | | | [phone] | | | | | | | | +--------+ + + + + | 06/16/ | Office | Pulmonology | Eveline Jaffe | | | 2019 | Visit | | MD Nichole Carter | | | | | | [address] [place] | | | | | | [place] [address] | | | | | | [phone] | | | | | | | | +--------+ + + + + | 08/24/ | Office | Cardiology | Anisha Lopez DO | | 2019 | Visit | | [address] | | | | | | [place] | | | | | | [address] | | | | | | | | +--------+ + + + + documented as of this encounter Visit Diagnoses Not on filedocumented in this encounter"
--- OUTSIDE RECORDS SUMMARY | ~2019-05-05 | XMS | Encounter Summary ---
Demographics + + + | Address | [address] | | | [place] [address] | + + + | Home Phone [...] [place] | | | | | [address] | | + + + + + Care Team Providers + +------+ + | Care Display Fabricator Name | Role | Phone | + [...] + + | 09/04/ | Hospital | [facility] | Jimmy Banegas DO | | | 2015 | Encounter | MED CTR RADIATION | [address] | | | | | ONCOLOGY [address] | [place] | | | | | [place], | [address] | | | | | [place] [address] | | | | | | [phone] | | | +--------+ + + + [...] | | | | | [place] [address] | | | | | | [phone] | | | | | | | | +--------+ + + + + | 06/08/ | Office | Physical Medicine | Rocky Santos, | | | 2019 | Visit | and Rehabilitation | MD [address] | | | | | | [place] | | | | | | [address] | | | | | | | | +--------+ + + + + | 06/16/ | Appointment | Pulmonology | Eveline Jaffe | | 2019 | | | MD [address] | | | | | | [place] [address] | | | | | | [place] [address] | | | | | | [phone] | | | | | | | | +--------+ + + + + | 06/16/ | Office | Pulmonology | Eveline Jaffe | | | 2019 | Visit | | MD [address] | | | | | | [place] | | | | | | [place] [address] | | | | | | [phone] | | | | | | | | +--------+ + + + + | 08/24/ | Office | Cardiology | Anisha Lopez DO | | | 2019 | Visit | | [address] | | | | | | [place] | | | | | | [address] | | | | | | | | +--------+ + + + + documented as of this encounter Visit Diagnoses Not on filedocumented in this encounter"
--- OUTSIDE RECORDS SUMMARY | ~2019-05-05 | XMS | Encounter Summary ---
Demographics + + + | Address | [address] | | | [place] [address] | + + + | Home Phone [...] [place] | | | | | [address] | | + + + + + Care Team Providers + +------+ + | Care Tobacco Sorter Name | Role | Phone | [...] + + | 11/06/ | Office | [facility] | Gurmeet Vargas | Centrilobular | | 2017 | Visit | PULMONARY [address] | MD [address] | emphysema (HCC) | | | | [place], | [place] | (Primary Dx); | | | | [place] [address] | [place] [address] | Metastatic primary | | | | [phone] | [phone] | lung cancer, | | | | [...] Gurmeet Vargas MD - 11/06/2016 2:40 PM [id number] ex-smoker with metastatic lung cancer in remission [...] also tells me that her surgeon in [place] once to fix a pelvic hernia and [...] 15 minutes, at least half in counseling. [employer] Word processing was used, and I a [...] | | | | | [place] [address] | | | | | | [phone] | | | | | | | | +--------+ + + + + | 06/08/ | Office | Physical Medicine | Rocky Santos, | | | 2019 | Visit | and Rehabilitation | MD [address] | | | | | | [place] | | | | | | [address] | | | | | | | | +--------+ + + + + | 06/16/ | Appointment | Pulmonology | Eveline Jaffe | | 2019 | | | MD [address] | | | | | | [address] | | | | | | [place] [address] | | | | | | [phone] | | | | | | | | +--------+ + + + + | 06/16/ | Office | Pulmonology | Eveline Jaffe | | | 2019 | Visit | | MD Ra[address] | | | | | | [place] | | | | | | [place] [address] | | | | | | [phone] | | | | | | | | +--------+ + + + + | 08/24/ | Office | Cardiology | Anisha Lopez DO | | | 2019 | Visit | | [address] | | | | | | [place] | | | | | | [address] | | | | | | | | +--------+ + + + + documented as of this encounter Visit Diagnoses + + | Diagnosis | + + | Centrilobular emphysema (HCC) - Primary | + + | Metastatic primary lung cancer, unspecified laterality (HCC) | + + documented in this encounter
--- OUTSIDE RECORDS SUMMARY | ~2019-05-05 | XMS | Encounter Summary ---
Demographics + + + | Address | [address] | | | [place] [address] | + + + | Home Phone [...] [place] | | | | | [address] | | + + + + + Care Team Providers + +------+ + | Care Heading Repairer Name | Role | Phone | [...] + + | 03/07/ | Refill | [facility] | Evelyn Leyva | Medication Refill | | 2019 | | RHEUMATOLOGY [address] | [address] | | | | | [place] | [facility] | | | | | [place], [place] | [place] [address] | | | | | [address] | [phone] | | | | | [phone] | | | +--------+--------+ + + + [...] | | | | [facility] | | | | | | [place] [address] | | | | | | [phone] | | | | | | | | +--------+ + + + + | 06/08/ | Office | Physical Medicine | Rocky Santos, | | | 2019 | Visit | and Rehabilitation | [address] | | | | | | [place] | | | | | | [address] | | | | | | | | +--------+ + + + + | 06/16/ | Appointment | Pulmonology | Eveline Jaffe | | | 2019 | | | MD [address] | | | | | | [address] [place] | | | | | | [place] [address] | | | | | | [phone] | | | | | | | | +--------+ + + + + | 06/16/ | Office | Pulmonology | Eveline Jaffe | | | 2019 | Visit | | MD [address] | | | | | | [address] [place] | | | | | | [place] [address] | | | | | | [phone] | | | | | | | | +--------+ + + + + | 08/24/ | Office | Cardiology | Anisha Lopez DO | | | 2019 | Visit | | [address] | | | | | | [place] | | | | | | [address] | | | | | | | | +--------+ + + + + documented as of this encounter Visit Diagnoses + + | Diagnosis | + + | Rheumatoid arthritis, involving unspecified site, unspecified rheumatoid factor | | presence (HCC) - Primary | + + documented in this encounter"
--- OUTSIDE RECORDS SUMMARY | ~2019-05-05 | XMS | Encounter Summary ---
Demographics + + + | Address | [address] | | | [place] [address] | + + + | Home Phone [...] [place] | | | | | [address] | | + + + + + Care Team Providers + +------+ + | Care Cook Jelly Name | Role | Phone | + [...] MD | symptoms) | | | | [place], | | | | | | [place] [address] | | | | | | [phone] | | | +--------+ + + + [...] | | | | | | [facility] | | | | | | [place] [address] | | | | | | [phone] | | | | | | | | +--------+ + + + + | 06/08/ | Office | Physical Medicine | Rocky Santos, | | | 2019 | Visit | and Rehabilitation | MD [address] | | | | | | [place] | | | | | | [address] | | | | | | | | +--------+ + + + + | 06/16/ | Appointment | Pulmonology | Eveline Jaffe | | 2019 | | | MD [address] | | | | | | [address] | | | | | | [place] [address] | | | | | | [phone] | | | | | | | | +--------+ + + + + | 06/16/ | Office | Pulmonology | Eveline Jaffe | | | 2019 | Visit | | MD Raul [address] | | | | | | [address] | | | | | | [place] [address] | | | | | | [phone] | | | | | | | | +--------+ + + + + | 08/24/ | Office | Cardiology | Anisha Lopez DO | | | 2019 | Visit | | [address] | | | | | | [place] | | | | | | [address] | | | | | | | | +--------+ + + + + documented as of this encounter Visit Diagnoses Not on filedocumented in this encounter"
--- OUTSIDE RECORDS SUMMARY | ~2019-05-05 | XMS | Encounter Summary ---
Demographics + + + | Address | [address] | | | [place] [address] | + + + | Home Phone [...] [place] | | | | | [address] | | + + + + + Care Team Providers + +------+ + | Care Pipe Inspector Name | Role | Phone | + +------+ + | Davis Ivan MD | PCP | | + +------+ + Encounter Details +--------+ + + + + | Date | Type | Department | Care Team | Description | +--------+ + + + + | 09/14/ | Hospital | [facility] | Adelita Lu MD | Squamous cell | | 2013 | Encounter | MED CTR MEDICAL | [address] | carcinoma lung, | | | | ONCOLOGY CLINIC [address] | [place] | right (HCC) (Primary | | | | [place] [address] [place] | [address] | Dx); Acute | | | | [place] [address] | [phone] | sinusitis | | | | [phone] | | | +--------+ + + + [...] states that she is having surgery in [place] with Dr. Mace on 09/16/13. REVIEW OF [...] 09/14/2013 9:25 AM PDT Hem-Onc Progress Note [facility] Patient name:Thea Carmona : 1945 Age: 68 y.o. CSN: [id number] Date of Service: 09/14/2013 Identifying Statement: Thea Carmona is a 68 y.o. female from [facility] with clinical stage II non-small cell lung [...] lewis 2.CT-guided biopsy by interventional radiology at [facility] of the right lung massshows squamous [...] by Dr. Mace , thoracic surgeon at [facility] for consideration of broncho scopy, right [...] 7 days sent to pharmacy. Thoracic surgery [facility] records reviewed. Results the brain MRI discussed with her which did show presence of mastoiditis Total time face to face discussion with the patient and family was 25 minutes, more than 50 % of the time was spent counseling and coordination of care. Adelita Lu MD Portions of this chart may have been created with [employer] voice recognition software. Occasi onal wrong-word or [...] CENTER | | | | | | [place] [address] | | | | | | [phone] | | | | | | | | +--------+ + + + + | 06/08/ | Office | Physical Medicine | Rocky Santos, | | | 2019 | Visit | and Rehabilitation | MD [address] | | | | | | [place] | | | | | | [address] | | | | | | | | +--------+ + + + + | 06/16/ | Appointment | Pulmonology | Eveline Jaffe | | 2019 | | | MD [address] | | | | | | [address] [place] | | | | | | [place] [address] | | | | | | [phone] | | | | | | | | +--------+ + + + + | 06/16/ | Office | Pulmonology | Eveline Jaffe | | | 2019 | Visit | | MD [address] | | | | | | [address] [place] | | | | | | [place] [address] | | | | | | [phone] | | | | | | | | +--------+ + + + + | 08/24/ | Office | Cardiology | Anisha Lopez DO | | | 2019 | Visit | | [address] | | | | | | [place] | | | | | | [address] | | | | | | | | +--------+ + + + + documented as of this encounter Visit Diagnoses + + | Diagnosis | + + | Squamous cell carcinoma lung, right (HCC) - Primary | + + | Acute sinusitis Acute sinusitis, unspecified | + + documented in this encounter
--- OUTSIDE RECORDS SUMMARY | ~2019-05-05 | XMS | Encounter Summary ---
Demographics + + + | Address | [address] | | | [place] [address] | + + + | Home Phone [...] [place] | | | | | [address] | | + + + + + Care Team Providers + +------+ + | Care Painter Spring Name | Role | Phone | + [...] Looney MD | | | | | [place], | | | | | | [place] [address] | | | | | | [phone] | | | +--------+ + + + [...] | | | | | [place] [address] | | | | | | [phone] | | | | | | | | +--------+ + + + + | 06/08/ | Office | Physical Medicine | Rocky Santos, | | | 2019 | Visit | and Rehabilitation | [address] | | | | | | [place] | | | | | | [address] | | | | | | | | +--------+ + + + + | 06/16/ | Appointment | Pulmonology | Eveline Jaffe | | | 2019 | | | MD [address] | | | | | | [address] [place] | | | | | | [place] [address] | | | | | | [phone] | | | | | | | | +--------+ + + + + | 06/16/ | Office | Pulmonology | Eveline Jaffe | | | 2019 | Visit | | MD [address] | | | | | | [address] [place] | | | | | | [place] [address] | | | | | | [phone] | | | | | | | | +--------+ + + + + | 08/24/ | Office | Cardiology | Anisha Lopez DO | | 2019 | Visit | | [address] | | | | | | [place] | | | | | | [address] | | | | | | | | +--------+ + + + + documented as of this encounter Visit Diagnoses + + | Diagnosis | + + | Shortness of breath on exertion - Primary Shortness of breath | + + documented in this encounter"
--- OUTSIDE RECORDS SUMMARY | ~2019-05-05 | XMS | Encounter Summary ---
Demographics + + + | Address | [address] | | | [place] [address] | + + + | Home Phone [...] [place] | | | | | [address] | | + + + + + Care Team Providers + +------+ + | Care Bad Cloth Checker Name | Role | Phone | + +------+ + | Davis Ivan MD | PCP | | + +------+ + Encounter Details +--------+ + + + + | Date | Type | Department | Care Team | Description | +--------+ + + + + | 05/20/ | Hospital | [facility] | Conversion | Pain | | 2018 | Encounter | CONVERSION [address] | Transaction, | | | | | [address] | Provider Unknown | | | | | [place] | [phone] | | | | | [address] | | | | | | [phone] | | | +--------+ + + + [...] | 2018 | Visit | | [address] | | | | | | [facility] | | | | | | [place] [address] | | | | | | [phone] | | | | | | | | +--------+ + + + + | 06/08/ | Office | Physical Medicine | Rocky Santos, | | | 2019 | Visit | and Rehabilitation | MD [address] | | | | | | [place] | | | | | | [address] | | | | | | | | +--------+ + + + + | 06/16/ | Appointment | Pulmonology | Eveline Jaffe | | | 2019 | | | MD [address] | | | | | | [address] [place] | | | | | | [place] [address] | | | | | | [phone] | | | | | | | | +--------+ + + + + | 06/16/ | Office | Pulmonology | Eveline Jaffe | | | 2019 | Visit | | MD [address] | | | | | | [address] [place] | | | | | | [place] [address] | | | | | | [phone] | | | | | | | | +--------+ + + + + | 08/24/ | Office | Cardiology | Anisha Lopez DO | | | 2019 | Visit | | [address] | | | | | | [place] | | | | | | [address] | | | | | | | [...]
--- OUTSIDE RECORDS SUMMARY | ~2019-05-05 | XMS | Encounter Summary ---
Demographics + + + | Address | [address] | | | [place] [address] | + + + | Home Phone [...] [place] | | | | | [address] | | + + + + + Care Team Providers + +------+ + | Care Anesthesiology Physician Name | Role | Phone | + +------+ + | Caitlin Chino MD | PCP | | + +------+ + Reason for Visit + + + | Reason | Comments | + + + | Follow-up | 3 month / holter | + + + Evaluate & Treat (Routine) + +--------+ + + + + | Status | Reason | Specialty | Diagnoses / | Referred By | Referred To | | | | | Procedures | Contact | Contact | + +--------+ + + + + | Pending | | Cardiology | Diagnoses | [place], | [place], | | Review | | | Other forms | Caitlin Mccray MD | MD Yadira | | | | | of dyspnea | [address] | [address] | | | | | Procedures | [address] | [place] | | | | | Consult | [place], | [place], [place] | | | | | | [place] [address] | [address] Phone: | | | | | | Phone: | [phone] | | | | | | [phone] | Fax: | | | | | | Fax: | [phone] | | | | | | [phone] | | + +--------+ + + + + Encounter Details +--------+---------+ + + + | Date | Type | Department | Care Team | Description | +--------+---------+ + + + | 03/10/ | Office | [facility] | Anisha Lopez DO | Hypokalemia (Primary | | 2019 | Visit | CARDIOLOGY [place] | [address] | Dx); Paroxysmal | | | | [address] | [place], [place] | atrial fibrillation | | | | [address] | [id number] | (HCC); Essential | | | | [place], [place] | | hypertension; | | | | [address] | | Cerebrovascular | | | | [phone] | | accident (CVA), | | | | | | unspecified | | | | | | mechanism (HCC); | | | | | | Hyperlipidemia, | | | | | | unspecified | | | | | | hyperlipidemia type | +--------+---------+ + + + Social [...] + + + | Blood Pressure | 104/52 | 03/10/2019 3:29 PM | | | | | PDT | | + + + + + | Pulse | 84 | 03/10/2019 3:29 PM | | | | | PDT | | + + + + + | Temperature | - | - | | + + + + + | Respiratory Rate | - | - | | + + + + + | Oxygen Saturation | 94% | 03/10/2019 3:29 PM | | | | | PDT | | + + + + + | Inhaled Oxygen | - | - | | | Concentration | | | | + + + + + | Weight | 68 kg (150 lb) | 03/10/2019 3:29 PM | | | | | PDT | | + + + + + | Height | 157.5 cm (5' 2") | 03/10/2019 3:29 PM | | | | | PDT | | + + + + + | Body Mass Index | 27.44 | 03/10/2019 3:29 PM | | | | | PDT [...] documented as of this encounter Progress Notes Anisha Lopez, - 03/10/2019 3:20 PM PDT [facility] Cardiology Follow Up Note Reason for Consultation: dyspnea Requesting Physician: Caitlin Chino History Obtained From: patient HISTORY OF PRESENT ILLNESS: Cardiac problem list Paroxysmal atrial fibrillation 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 She presents to [facility] cardiology office for initial consultation regarding dyspnea on exertion. She had an ER visit on 09/28/2018 for an episode of paroxysmal atrial fibrillation. This occurred just pr ior to an outpatient surgery. She was given a dose of 10 mg IV diltiazem for rate control a nd subsequently converted back to normal sinus rhythm. She was previously on Coumadin due t o a history of PE which occurred six months ago. She was sent home on diltiazem after this. She believed that her dyspnea on exertion has been occurring even since before that. She has undergone recent testing with echocardiogram and stress test. Her echocardiogram was do ne 10/26/2018 which was a limited study, but demonstrated a grossly normal ejection fraction of about 65 percent, right ventricle looked normal in size and systolic function. She unde rwent a nuclear stress test on 11/10/2018, which was negative for any evidence of perfusion defects. Her wall motion was normal and her ejection fraction was 70 percent. The patient denies any paroxysms of atrial fibrillation similar in nature to what happened prior to her ER visit. She denies any orthopnea. She presents today in a wheelchair and uses this due t o issues with back pain and dyspnea on exertion. She denies any orthopnea. She uses Lasix for lower extremity edema. She is able to do all of her ADLs but needs help with cooking an d some of the heavier cleaning chores. She denies any recent episodes of chest pain. Interim History I last saw the patient on 12/16/2018. At that time, we obtained a 1 week ambulatory monitor . Her diltiazem was discontinued and she was switched to metoprolol. Her one week monitor d emonstrated sinus rhythm and was negative for any paroxysms of atrial fibrillation. Her LE e baldev improved after switching from dilitazem to metoprolol. She plans on following up with jamilah murphy in [place]. She continues to have issues with dyspnea on exertion. She denies any chest pains. She denies any paroxysms of afib that she is aware of. She denies any blee ding issues with anticoagulation. Review of Systems Constitutional: Positive for fatigue. HENT: Negative for nosebleeds. Eyes: Negative for visual disturbance. Respiratory: Negative for cough and positive for shortness of breath. Cardiovascular: see HPI Gastrointestinal: Negative for nausea, vomiting, abdominal pain and blood in stool. Genitourinary: Negative for hematuria or dysuria. Musculoskeletal: Negative for myalgias, positive for back pain and arthralgias. Skin: Negative for color change. Neurological: Negative for dizziness, syncope and numbness. Hematological: Does not bruise/bleed easily. Psychiatric/Behavioral: The patient is not nervous/anxious. PAST MEDICAL & SURGICAL HISTORY Past Medical History Diagnosis Date Alcohol abuse Anemia Arthritis Atrial fibrillation (HCC) 2018 COPD (chronic obstructive pulmonary disease) (HCC) Depression GERD (gastroesophageal reflux disease) Hx of blood clots Hyperlipidemia Hypertension Joint pain Malignant neoplasm (HCC) MARCE (obstructive sleep apnea) 08/02/2013 Other chronic pain Pulmonary embolism (HCC) 05/03/2018 RA (rheumatoid arthritis) (HCC) Stroke (HCC) 2004 Thyroid disease Unspecified visual disturbance glasses Past Surgical History Procedure Laterality Date BACK SURGERY BLADDER SUSPENSION 2000 CATARACT EXTRACTION CAUDAL BLOCK 07-15-12 Caudal w/ cath target Right L5, S1 CERVICAL FUSION N/A 04/06/2013 Procedure: CERVICAL - FUSION - POSTERIOR; Surgeon: Silviano Cabrera MD; Location: [facility]; Service: Ortho/Spine; Laterality: N/A; C4-6 & decompression CERVICAL FUSION N/A 01/19/2013 Procedure: CERVICAL - DISC & FUSION - ANTERIOR; Surgeon: Silviano Cabrera MD; Location: [facility] MA[facility] OR; Service: Orthopedics; Laterality: N/A; C4-6 CHOLECYSTECTOMY 2000 COLONOSCOPY EYE SURGERY FINGER SURGERY 12-02-11 Thumb HAND SURGERY HARDWARE REMOVAL HYSTERECTOMY 1974 ovaries removed LUMBAR DECOMPRESSION & FUSION N/A 03/31/2014 Procedure: LUMBAR - DECOMPRESSION & FUSION; Surgeon: Silviano Cabrera MD; Location: [facility] OR; Service: Ortho/Spine; Laterality: N/A; LUMBAR EPIDURAL INJECTION 05-27-12 Right L5 TFESI target Right S1 LUMBAR FUSION N/A 03/31/2014 Procedure: LUMBAR - FUSION - POST; Surgeon: Silviano Cabrera MD; Location: [facility] MAIN OR; Service: Ortho/Spine; Laterality: N/A; L 4/S1 LUMBAR FUSION N/A 03/29/2014 Procedure: LUMBAR - FUSION - ANTERIOR; Surgeon: Silviano Cabrera MD; Location: [facility] MAIN O R; Service: Ortho/Spine; Laterality: N/A; L4/5, L5/S1 NECK SURGERY SHOULDER SURGERY 12/2011 SPINE SURGERY UNLISTED PROCEDURE ARTHROSCOPY MEDICATIONS Home Medications Outpatient Encounter Prescriptions as of 12/16/2018 Medication Sig Dispense Refill afatinib dimaleate (GILOTRIF) 30 MG tablet Take 30 mg by mouth every morning before deshaun akfast. albuterol (PROVENTIL) (2.5 MG/3ML) 0.083% nebulizer solution Take 2.5 mg by nebulizatio n 3 (three) times daily. History of smoking, COPD, and asthma Carboxymethylcellulose Sodium (REFRESH TEARS OP) Apply to eye. Cholecalciferol (VITAMIN D) 2000 UNITS CAPS Take 1 capsule by mouth daily. diltiazem (CARDIZEM CD) 180 MG 24 hr capsule Take 180 mg by mouth. doxycycline (VIBRA-TABS) 100 MG tablet Take 100 mg by mouth 2 (two) times daily. DULoxetine (CYMBALTA) 30 MG capsule Take 30 mg by mouth daily. DULoxetine (CYMBALTA) [address] capsule Take 60 mg by mouth daily. erythromycin (ROMYCIN) ophthalmic ointment Place 5 mg into both eyes 4 (four) times marlen ly. Thin ribbon to affected eye four times daily for 7 days Ferrous Sulfate (IRON) 325 (65 FE) MG TABS Take 1 tablet by mouth daily. fluticasone furoate-vilanterol (BREO ELLIPTA) 100-25 mcg/inh inhaler Inhale 1 puff into the lungs daily. folic acid (FOLVITE) 1 MG tablet Take 1 mg by mouth daily. furosemide (LASIX) 20 MG tablet Take 20 mg by mouth daily. levothyroxine (SYNTHROID) 112 MCG tablet Take 1 tablet by mouth daily. loperamide (IMODIUM) 2 MG capsule Take 2 mg by mouth. Melatonin 2.5 MG CAPS Take by mouth. methotrexate 2.5 MG tablet Take 8 tablets by mouth once a week. 32 tablet 2 multivitamin-minerals (OCUVITE-LUTEIN) tablet Take 1 tablet by mouth daily. pantoprazole (PROTONIX) 40 MG tablet Take 40 mg by mouth every morning before breakfast . potassium chloride SA (K-DUR,KLOR-CON) 20 MEQ tablet Take 20 mEq by mouth 2 (two) times daily with meals. predniSONE (DELTASONE) 5 MG tablet Take 1 tablet by mouth 2 (two) times daily. pseudoephedrine (SUDAFED) 60 MG tablet Take 60 mg by mouth every 4 (four) hours as need ed for Congestion. roflumilast (DALIRESP) 500 MCG tablet Take 500 mcg by mouth daily. simvastatin (ZOCOR) 40 MG tablet Take 1 tablet by mouth daily. tiotropium (SPIRIVA RESPIMAT) 2.5 MCG/ACT inhaler Inhale 2 puffs into the lungs daily. Turmeric 500 MG CAPS Take by mouth. warfarin (COUMADIN) 5 MG tablet Take 5 mg by mouth daily. [DISCONTINUED] Magnesium 100 MG CAPS Take 1 tablet by mouth daily. [DISCONTINUED] venlafaxine (EFFEXOR-XR) 75 MG 24 hr capsule Take 1 capsule by mouth marlen ly. No facility-administered encounter medications on file as of 12/16/2018. Allergies Allergies Allergen Reactions Trazodone Hives Mirtazapine Other (See Comments) FAMILY HISTORY Family History Problem Relation Age of Onset Cancer Father SOCIAL HISTORY Social History Social History Marital status: Spouse name: N/A Number of children: N/A Years of education: N/A Occupational History Not on file. Social History Main Topics Smoking status: Former Smoker Packs/day: 1.00 Years: 58.00 Smokeless tobacco: Never Used Comment: quti July 2011 Alcohol use No Drug use: No Sexual activity: Not on file Other Topics Concern Not on file Social History Narrative No narrative on file PHYSICAL EXAM Vitals: 03/10/19 1529 BP: 104/52 Pulse: 84 SpO2: 94% Weight: 68 kg (150 lb) Height: 1.575 m (5' 2") Physical Exam GENERAL: Resting comfortably, NAD HEENT: Normocephalic, atraumatic. EYES: PERRL, sclerae anicteric, no xanthelsasmas NECK: No JVD, lymphadenopathy, thyromegaly, bruits. Carotid pulses are 2+ bilaterally LUNGS: Clear bilaterally, with no rales, rhonchi or wheezing noted, respirations unlabored HEART: Nondisplaced PMI, regular rate and rhythm, S1, S2 normal. No murmurs, rubs or gall ops noted. ABDOMEN: Soft, nontender, no organomegaly, masses or bruits. Bowel sounds are normal in a ll 4 quadrants. EXTREMITIES: Trace b/l LE edema. Radial pulses 2+ bilaterally. DP and PT pulses are 2+ bi laterally. SKIN: Warm and dry, capillary refill is normal, no lesions. NEUROLOGIC: Awake, alert and oriented x 3. No focal motor deficits. PSYCHIATRIC: Appropriate, affect appears normal DATA Results for THEA CARMONA ( ) as of 12/16/2018 11:31 Ref. Range 10/28/2018 13:20 WBC Latest Ref Range: 3.80 - 11.00 10*3/uL 12.90 (H) RBC Latest Ref Range: 3.70 - 5.10 10*6/uL 4.25 HGB Latest Ref Range: 11.3 - 15.5 g/dL 12.5 HCT Latest Ref Range: 34.0 - 46.0 % 39.1 MCV Latest Ref Range: 80.0 - 100.0 fL 91.9 MCH Latest Ref Range: 27.0 - 34.0 pg 29.5 MCHC Latest Ref Range: 32.0 - 35.5 g/dL 32.1 RDW Latest Ref Range: 37 - 53 fL 62.1 (H) Platelets Latest Ref Range: 150 - 400 10*3/uL 339 Results for THEA CARMONA ( ) as of 12/16/2018 11:31 Ref. Range 10/28/2018 13:20 SODIUM Latest Ref Range: 135 - 145 mmol/L 141 POTASSIUM Latest Ref Range: 3.5 - 4.9 mmol/L 3.7 CHLORIDE Latest Ref Range: 99 - 109 mmol/L 105 CO2 Latest Ref Range: 23 - 32 mmol/L 29 ANION GAP AGAP Latest Ref Range: 5 - 20 mmol/L 11 GLUCOSE Latest Ref Range: 65 - 99 mg/dL 101 (H) BUN Latest Ref Range: 8 - 25 mg/dL 17 CREATININE Latest Ref Range: 0.50 - 1.00 mg/dL 1.0 BUN/CREAT Unknown 17 CALCIUM Latest Ref Range: 8.5 - 10.5 mg/dL 9.2 TOTAL PROTEIN Latest Ref Range: 6.3 - 8.2 g/dL 6.6 ALBUMIN Latest Ref Range: 3.3 - 4.8 g/dL 3.2 (L) GLOBULIN Latest Ref Range: 1.3 - 4.9 g/dL 3.4 TBIL Latest Ref Range: 0.1 - 1.5 mg/dL 0.4 ALK PHOS Latest Ref Range: 35 - 115 U/L 66 AST Latest Ref Range: 10 - 45 U/L 11 ALT Latest Ref Range: 10 - 65 U/L 14 EGFR Latest Ref Range: >60 mL/min/1.73_m2 54 (L) A/G Latest Ref Range: 1.0 - 2.4 0.9 (L) CRP Latest Ref Range: <0.5 mg/dL 3.1 (H) ESR Latest Ref Range: 0 - 30 mm/h 75 (H) EKG: ordered and reviewed by myself 12/16/18 normal sinus rhythm 85BPM, NSIVCD Last Echo: 10/26/18 Impression 1. This was a limited technically difficult study with suboptimal views. 2. Overall left ventricular systolic function is grossly normal with, an EF about 65 %. 3. The right ventricle is normal in size and function. 4. No gross valve abnormalities on t his limited exam 5. Consider MUGA scans to monitor EF if patient is recieving cardiotoxic ch emotherapy. 11/30/15 Conclusions Summary Left ventricle is of grossly normal size and systolic function with LVEF calculated at 69%. Left atrium is poorly visualized. Patient has suboptimal parasternal windows given underlying severe COPD and prior surgery for lung cancer. No obvious valvular disease appreciated. Last stress test: 11/10/2018 no evidence of perfusion defects, normal left ventricular wall motion, normal eje ction fraction of 70% Last cath: Carotid US: AAA screening: Lower extremity US: OTHERS: 7 day Bardi 12/27/18 Procedure: Continuous ambulatory ECG for the duration of 6 days and 4 hours. During this r ecording, the underlying rhythm is Sinus, the lowest heart rate was 58 BPM, the highest hear t rate 136 BPM, averaging 75 BPM. During this recording interval, 1% PACs were recorded; th ere were 32 episodes of atrial tachycardia the longest of which was 10 beats at 157BPM, the fastest of which was 5 beats at 187BPM. No ventricular arrhythmias present. No AV conducti on abnormalities observed. No ischemia detected. The heart rate trends did demonstrate a n ormal circadian pattern. In the patient's diary, no symptoms were reported ASSESSMENT & PLAN 1. Paroxysmal atrial fibrillation 2. CVA- weakness on left side 3. Hypertension 4. Hyperlipidemia 5. Degenerative disc disease 6. COPD 7. Hypothyroidism 8. Obstructive sleep apnea 9. Osteoporosis 10. Squamous cell carcinoma of the lung 11. Radiation pneumonitis 12. Rheumatoid arthritis 13. Pulmonary embolism- 6 months ago - The patient is a 73yo female which the above complex past medical history who presents to the cardiology office for follow up regarding dyspnea on exertion and paroxysmal atrial fib rillation. She recently underwent echocardiogram which was a limited study but demonstrated a grossly normal EF and RV. She underwent nuclear stress test which was negative for perfusi on abnormality. She was recently diagnosed with paroxysmal atrial fibrillation and spontaneo usly converted to NSR after one dose of IV cardizem was given in the ED. She is on anticoagu lation for history of PE. Recent 7 day Bardi monitor was negative for paroxysms of afib. She is tolerating anticoagulation well. She was noted to be hypokalemic on most recent blood wo rk, her potassium supplement was increased, will repeat a BMP to re check. - Continue metoprolol succinate 25mg po daily - Continue anticoagulation with coumadin - Continue lasix 20mg po daily, potassium supplement - obtain a bmp, mg level - continue current dose of simvastatin. - Follow up with pulmonology - Follow up in 6 months Thank you for allowing me to participate in the care of this patient. Primary Care Physician: Caitlin Lopez DO documented in this enco unter Plan of [...] | | | | | [place] [address] | | | | | | [phone] | | | | | | | | +--------+ + + + + | 06/08/ | Office | Physical Medicine | Rocky Santos, | | | 2019 | Visit | and Rehabilitation | MD [address] | | | | | | [place] | | | | | | [address] | | | | | | | | +--------+ + + + + | 06/16/ | Appointment | Pulmonology | Eveline Jaffe | | | 2019 | | | MD [address]ole [address] | | | | | | [address] [place] | | | | | | [place] [address] | | | | | | [phone] | | | | | | | | +--------+ + + + + | 06/16/ | Office | Pulmonology | Eveline Jaffe | | | 2019 | Visit | | MD Nichole [address] | | | | | | [address] [place] | | | | | | [place] [address] | | | | | | [phone] | | | | | | | | +--------+ + + + + | 08/24/ | Office | Cardiology | Anisha Lopez DO | | | 2019 | Visit | | [address] | | | | | | [place] | | | | | | [address] | | | | | | | | +--------+ + + + + + +------+--------+ + + | Name | Type | Priori | Associated Diagnoses | Order Schedule | | | | ty | | | + +------+--------+ + + | Basic Metabolic | Lab | Routin | Hypokalemia | 1 Occurrences | | Panel | | e | | starting 03/10/2019 | | | | | | until 03/10/2020 | + +------+--------+ + + | Magnesium | Lab | Routin | Hypokalemia | 1 Occurrences | | | | e | | starting 03/10/2019 | | | | | | until 03/10/2020 | + +------+--------+ + + documented as of this encounter Visit Diagnoses + + | Diagnosis | + + | Hypokalemia - Primary Hypopotassemia | + + | Paroxysmal atrial fibrillation (HCC) Atrial fibrillation | + + | Essential hypertension Unspecified essential hypertension | + + | Cerebrovascular accident (CVA), unspecified mechanism (HCC) | + + | Hyperlipidemia, unspecified hyperlipidemia type | + + documented in this encounter
--- OUTSIDE RECORDS SUMMARY | ~2019-05-05 | XMS | Encounter Summary ---
Demographics + + + | Address | [address] | | | [place] [address] | + + + | Home Phone [...] [place] | | | | | [address] | | + + + + + Care Team Providers + +------+ + | Care Surgical Manager Name | Role | Phone | [...] + + | 08/24/ | Hospital | [facility] | Offenstein, | Cough | | 2014 | Encounter | MED CTR XRAY [address] | Ayana Looney MD | | | | | [place] | | | | | | [place] [address] | | | | | | [phone] | | | +--------+ + + + [...] | | | | | [place] [address] | | | | | | [phone] | | | | | | | | +--------+ + + + + | 06/08/ | Office | Physical Medicine | Rocky Santos, | | | 2019 | Visit | and Rehabilitation | MD Nichole Landis | | | | | | [place] | | | | | | [address] | | | | | | | | +--------+ + + + + | 06/16/ | Appointment | Pulmonology | Eveline Jaffe | | 2019 | | | Sherrin, MD [address] | | | | | | [address] [place] | | | | | | [place] [address] | | | | | | [phone] | | | | | | | | +--------+ + + + + | 06/16/ | Office | Pulmonology | Eveline Jaffe | | | 2019 | Visit | | MD Raul [address] | | | | | | [address] [place] | | | | | | [place] [address] | | | | | | [phone] | | | | | | | | +--------+ + + + + | 08/24/ | Office | Cardiology | Anisha Lopez DO | | | 2019 | Visit | | [address] | | | | | | [place] | | | | | | [address] | | | | | | | [...] Stable left internal jugular line | [facility] | | with tip in [...] [address] | [place] | [phone] | | [facility] | | [address] | | | - IMAGING | | | | + + + + + documented in this encounter Visit Diagnoses + + | Diagnosis | + + | Cough | + + documented in this encounter"
--- OUTSIDE RECORDS SUMMARY | ~2019-05-05 | XMS | Encounter Summary ---
Demographics + + + | Address | [address] | | | [place] [address] | + + + | Home Phone [...] [place] | | | | | [address] | | + + + + + Care Team Providers + +------+ + | Care Director Of Donor Relations Name | Role | Phone | + [...] | | | | lung (HCC) | [address] | [place], [place] | | | | | | [place], | [address] | | | | | | [place] [address] | Phone: | | | | | | | [phone] | | | | | | | Fax: | | | | | | | [phone] | +--------+ + + + + + [...] Looney MD | | | | | [address] [place], | | | | | | [place] [address] | | | | | | [phone] | | | +--------+ + + + [...] | 2018 | Visit | | AMANDA-Avila [address] | | | | | | [facility] | | | | | | [place] [address] | | | | | | [phone] | | | | | | | | +--------+ + + + + | 06/08/ | Office | Physical Medicine | Rocky Santos, | | | 2019 | Visit | and Rehabilitation | MD [address] | | | | | | [place] | | | | | | [address] | | | | | | | | +--------+ + + + + | 06/16/ | Appointment | Pulmonology | Eveline Jaffe | | | 2019 | | | MD [address] | | | | | | [address] [place] | | | | | | [place] [address] | | | | | | [phone] | | | | | | | | +--------+ + + + + | 06/16/ | Office | Pulmonology | Eveline Jaffe | | 2019 | Visit | | MD [address] | | | | | | [address] [place] | | | | | | [place] [address] | | | | | | [phone] | | | | | | | | +--------+ + + + + | 08/24/ | Office | Cardiology | Anisha Lopez DO | | | 2019 | Visit | | [address] | | | | | | [place] | | | | | | [address] | | | | | | | [...]
--- OUTSIDE RECORDS SUMMARY | ~2019-05-05 | XMS | Encounter Summary ---
Demographics + + + | Address | [address] | | | [place] [address] | + + + | Home Phone [...] [place] | | | | | [address] | | + + + + + Care Team Providers + +------+ + | Care Home Care Aide Name | Role | Phone | [...] | | | [place] | | [place] [address] | | | | | finger, left | | Phone: | | | | | index | | [phone] | | | | | finger | | Fax: | | | | | Trigger | | [phone] | | | | | finger, left | | | | | | | middle | | | | | | | finger | | | | | | | Procedures | | | | | | | [place] INC[place] | | | | | | | FINGER | | | | | | | TENDON | | | | | | | [place] | | | | | | | INCISE | | | | | | | FINGER | | | | | | | TENDON | | | | | | | [place] | | | | | | | [...] + + | 12/14/ | Surgery | [facility] | Giuliano Padilla, | Left Thumb Trigger | | 2019 | | MED CTR OR INTRA OP | MD [address] [place] [address] ST | Finger Release, Left | | | | [address] | [place], [place] | Index Trigger | | | | [place], [place] | [address] | Finger Release, Left | | | | [address] | | Long Trigger Finger | | | | [phone] | | Release, Left Ring | | [...] | | | | type ([facility]) | | | | | [...] | 2018 | Visit | | MINI [address] | | | | | | [facility] | | | | | | [place] [address] | | | | | | [phone] | | | | | | | | +--------+ + + + + | 06/08/ | Office | Physical Medicine | Rocky Snatos, | | | 2019 | Visit | and Rehabilitation | MD [address] | | | | | | [place] | | | | | | [address] | | | | | | | | +--------+ + + + + | 06/16/ | Appointment | Pulmonology | Eveline Jaffe | | 2019 | | | MD [address] | | | | | | [address] | | | | | | [place] [address] | | | | | | [phone] | | | | | | | | +--------+ + + + + | 06/16/ | Office | Pulmonology | Eveline Jaffe | | 2019 | Visit | | MD [address] | | | | | | [address] | | | | | | [place] [address] | | | | | | [phone] | | | | | | | | +--------+ + + + + | 08/24/ | Office | Cardiology | Anisha Lopez DO | | | 2019 | Visit | | [address] | | | | | | [place] | | | | | | [address] | | | | | | | [...] [address] | [place] | [phone] | | [facility] | | [address] | | | - LABORATORY | | [...] [address] | [place] | [phone] | | [facility] | | [address] | | | - LABORATORY | | [...]
--- OUTSIDE RECORDS SUMMARY | ~2019-05-05 | XMS | Encounter Summary ---
Demographics + + + | Address | [address] | | | [place] [address] | + + + | Home Phone [...] [place] | | | | | [address] | | + + + + + Care Team Providers + +------+ + | Care Aerospace Engineer Officer Armament Name | Role | Phone | + +------+ + | Davis Ivan MD | PCP | | + +------+ + Encounter Details +--------+ + + + + | Date | Type | Department | Care Team | Description | +--------+ + + + + | 11/11/ | Hospital | [facility] | Conversion | Pain | | 2013 | Encounter | CONVERSION DEP [address] | Transaction, | | | | | [address]OR[address] | Provider Unknown | | | | | [place] | [phone] | | | | | [address] | | | | | | [phone] | | | +--------+ + + + [...] | | | | | [place] [address] | | | | | | [phone] | | | | | | | | +--------+ + + + + | 06/08/ | Office | Physical Medicine | Rocky Santos, | | | 2019 | Visit | and Rehabilitation | [address] | | | | | | [place] | | | | | | [address] | | | | | | | | +--------+ + + + + | 06/16/ | Appointment | Pulmonology | Eveline Jaffe | | | 2019 | | | MD [address] | | | | | | [address] [place] | | | | | | [place] [address] | | | | | | [phone] | | | | | | | | +--------+ + + + + | 06/16/ | Office | Pulmonology | Eveline Jaffe | | | 2019 | Visit | | MD [address] W | | | | | | [address] [place] | | | | | | [place] [address] | | | | | | [phone] | | | | | | | | +--------+ + + + + | 08/24/ | Office | Cardiology | Anisha Lopez DO | | | 2019 | Visit | | [address] | | | | | | [place] | | | | | | [address] | | | | | | | [...]
--- OUTSIDE RECORDS SUMMARY | ~2019-05-05 | XMS | Encounter Summary ---
Demographics + + + | Address | [address] | | | [place] [address] | + + + | Home Phone [...] [place] | | | | | [address] | | + + + + + Care Team Providers + +------+ + | Care Denture Model Maker Name | Role | Phone | [...] (Primary Dx) | | | | [place], | [address] | | | | | [place] [address] | | | | | | [phone] | | | +--------+ + + + [...] | | | | | [place] [address] | | | | | | [phone] | | | | | | | | +--------+ + + + + | 06/08/ | Office | Physical Medicine | Rocky Santos | | | 2019 | Visit | and Rehabilitation | [address] | | | | | | [place] | | | | | | [address] | | | | | | | | +--------+ + + + + | 06/16/ | Appointment | Pulmonology | Eveline Jaffe | | | 2019 | | | MD [address] | | | | | | [address] [place] | | | | | | [place] [address] | | | | | | [phone] | | | | | | | | +--------+ + + + + | 06/16/ | Office | Pulmonology | Eveline Jaffe | | 2019 | Visit | | MD [address] W | | | | | | [address] [place] | | | | | | [place] [address] | | | | | | [phone] | | | | | | | | +--------+ + + + + | 08/24/ | Office | Cardiology | Anisha Lopez DO | | 2019 | Visit | | [address] | | | | | | [place] | | | | | | [address] | | | | | | | | +--------+ + + + + documented as of this encounter Visit Diagnoses + + | Diagnosis | + + | Cough due to bronchospasm - Primary Acute bronchospasm | + + documented in this encounter"
--- OUTSIDE RECORDS SUMMARY | ~2019-05-05 | XMS | Encounter Summary ---
Demographics + + + | Address | [address] | | | [place] [address] | + + + | Home Phone [...] [place] | | | | | [address] | | + + + + + Care Team Providers + +------+ + | Care Director Teen Post Name | Role | Phone | + [...] W | | | | | | [place] | [address] | | | | | | GUIDE NEEDLE | [place], | | | | | | BIOPSY [place] | [place] [address] | | | | | | DRAIN/INJECT [...] | regarding biopsy) | | | | [place], | | | | | | [place] [address] | | | | | | [phone] | | | +--------+ + + + [...] | 05/30/ | Office | Rheumatology | Sanotsh Sumner, | | | 2019 | Visit | | [address] | | | | | | [address] | | | | | | [place] [address] | | | | | | [phone] | | | | | | | | +--------+ + + + + | 06/08/ | Office | Physical Medicine | Rocky Santos, | | | 2019 | Visit | and Rehabilitation | MD [address] | | | | | | [place] | | | | | | [address] | | | | | | | | +--------+ + + + + | 06/16/ | Appointment | Pulmonology | Eveline Jaffe | | 2019 | | | MD [address] | | | | | | [address] | | | | | | [place] [address] | | | | | | [phone] | | | | | | | | +--------+ + + + + | 06/16/ | Office | Pulmonology | Eveline Jaffe | | | 2019 | Visit | | MD Raul [address] | | | | | | [address] [place] | | | | | | [place] [address] | | | | | | [phone] | | | | | | | | +--------+ + + + + | 08/24/ | Office | Cardiology | Anisha Lopez DO | | | 2019 | Visit | | [address] | | | | | | [place] | | | | | | [address] | | | | | | | [...]
--- OUTSIDE RECORDS SUMMARY | ~2019-05-05 | XMS | Encounter Summary ---
Demographics + + + | Address | [address] | | | [place] [address] | + + + | Home Phone [...] [place] | | | | | [address] | | + + + + + Care Team Providers + +------+ + | Care Assistant Administrator Name | Role | Phone | [...] | | cell | Ayana B, | [place] | | | | | carcinoma | MD [address] | [place] | | | | | lung (HCC) | [address] | [address] | | | | | Procedures | [place], | Phone: | | | | | PET CT Skull | [place] [address] | [phone] | | | | | Base To Mid | | Fax: | | | | | Thigh | | [phone] | +--------+--------+ + + + + Reason for Visit + + + | Reason | Comments | + + + | Follow-up | | + + + Encounter Details +--------+---------+ + + + | Date | Type | Department | Care Team | Description | +--------+---------+ + + + | 08/02/ | Office | [facility] | Offenstein, | 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 female patient of Davis Ivan here today for follo w up of lung nodule. After lengthy discussion, we decided to refer her to [place] for biopsy. Biopsy was compli cated by [...] for 4 hours. At her visit, I tohmas d to urgent care, and ENT. Urgent [...] CENTER) on prednisone and methotrexate, Dr. 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 documented in t his encounter Plan of Treatment +--------+ + + + + | Date | Type | Specialty | Care Team | Description | +--------+ + + + + | 05/30/ | Office | Rheumatology | Santosh Sumner, | | | 2018 | Visit | | [address] | | | | | | [facility] | | | | | | [place] [address] | | | | | | [phone] | | | | | | | | +--------+ + + + + | 06/08/ | Office | Physical Medicine | Rocky Santos, | | | 2019 | Visit | and Rehabilitation | MD [address] | | | | | | [place] | | | | | | [address] | | | | | | | | +--------+ + + + + | 06/16/ | Appointment | Pulmonology | Eveline Jaffe | | 2019 | | | MD [address] | | | | | | [address] | | | | | | [place] [address] | | | | | | [phone] | | | | | | | | +--------+ + + + + | 06/16/ | Office | Pulmonology | Eveline Jaffe | | | 2019 | Visit | | MD Raul [address] | | | | | | [address] [place] | | | | | | [place] [address] | | | | | | [phone] | | | | | | | | +--------+ + + + + | 08/24/ | Office | Cardiology | Anisha Lopez DO | | | 2019 | Visit | | [address] | | | | | | [place] | | | | | | [address] | | | | | | | [...] x 2.1 cm (CT image 56, PET [id number]). Maximum | | | SUV is 6.26, [...] cm | | (CT image 56, PET [id number]). Maximum SUV is 6.26, consistent with the [...] + | MISCELLANEOUS LAB | | | [phone] | + +---------+ + + | MISCELANIOUS LAB | | | [phone] | + +---------+ + + documented in [...]
--- OUTSIDE RECORDS SUMMARY | ~2019-05-05 | XMS | Encounter Summary ---
Demographics + + + | Address | [address] | | | [place] [address] | + + + | Home Phone [...] [place] | | | | | [address] | | + + + + + Care Team Providers + +------+ + | Care Manager Technical Training Name | Role | Phone | + +------+ + | Davis Ivan MD | PCP | | + +------+ + Encounter Details +--------+ + + + + | Date | Type | Department | Care Team | Description | +--------+ + + + + | 10/18/ | Hospital | [facility] | Offenstein, | Cough | | 2015 | Encounter | MED CTR XRAY [address] | MD Raoul Sahni, | | | | | [address] | [place] | | | | | [place] [address] | | | | | | [phone] | | | +--------+ + + + [...] | 2018 | Visit | | [address] | | | | | | [facility] | | | | | | [place] [address] | | | | | | [phone] | | | | | | | | +--------+ + + + + | 06/08/ | Office | Physical Medicine | Rocky Santos, | | | 2019 | Visit | and Rehabilitation | MD [address] | | | | | | [place] | | | | | | [address] | | | | | | | | +--------+ + + + + | 06/16/ | Appointment | Pulmonology | Eveline Jaffe | | | 2019 | | | MD [address] | | | | | | [address] [place] | | | | | | [place] [address] | | | | | | [phone] | | | | | | | | +--------+ + + + + | 06/16/ | Office | Pulmonology | Eveline Jaffe | | | 2019 | Visit | | MD [address] | | | | | | [address] [place] | | | | | | [place] [address] | | | | | | [phone] | | | | | | | | +--------+ + + + + | 08/24/ | Office | Cardiology | Anisha Lopez DO | | | 2019 | Visit | | [address] | | | | | | [place] | | | | | | [address] | | | | | | | [...]
--- OUTSIDE RECORDS SUMMARY | ~2019-05-05 | XMS | Encounter Summary ---
Demographics + + + | Address | [address] | | | [place] [address] | + + + | Home Phone [...] [place] | | | | | [address] | | + + + + + Care Team Providers + +------+ + | Care Bin Tripper Operator Name | Role | Phone | [...] | 03/30/ | Office | [facility] | Offenstein, | Pulmonary nodule | | 2012 | Visit | PULMONARY [address] | Ayana Looney MD | (Primary Dx); COPD | | | | [place], | | (chronic obstructive | | | | [place] [address] | | pulmonary disease) | | | | [phone] | | (HCC); Rheumatoid | | | | | | arthritis ([facility]) | +--------+---------+ + + + [...] MD [place] Garcia Pulmonary and Critical Care [facility] [address] [place], [address] Referring Provider: Davis Ivan * HPI Thea [...] She believes she had one yearly at [facility], even fairly recently. They do have [...] own cooking and cleaning. She has a senior web engineer at home. 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 Social History Main Topics Smoking status: Former Smoker -- 1.0 packs/day for 50 years Types: Cigarettes Quit date: 08/21/2012 Smokeless tobacco: None Alcohol Use: No Drug Use: No marijuana in the remote past Sexually Active: None Other Topics Concern None Social History Narrative Lives: in [place] With: alone[place] up[place] lived in: [place] [...] | | | | | [place] [address] | | | | | | [phone] | | | | | | | | +--------+ + + + + | 06/08/ | Office | Physical Medicine | Rocky Santos, | | | 2019 | Visit | and Rehabilitation | [address] | | | | | | [place] | | | | | | [address] | | | | | | | | +--------+ + + + + | 06/16/ | Appointment | Pulmonology | Eveline Jaffe | | | 2019 | | | MD [address] | | | | | | [address] [place] | | | | | | [place] [address] | | | | | | [phone] | | | | | | | | +--------+ + + + + | 06/16/ | Office | Pulmonology | Eveline Jaffe | | | 2019 | Visit | | MD Raul [address] | | | | | | [address] [place] | | | | | | [place] [address] | | | | | | [phone] | | | | | | | | +--------+ + + + + | 08/24/ | Office | Cardiology | Anisha Lopez DO | | | 2019 | Visit | | [address] | | | | | | [place] | | | | | | [address] | | | | | | | [...] | | [facility] | | | [facility] | | | - LABORATORY | + + + + + + + + | Performing | Address | City/State/Zipcode | Phone Number | | Organization | | | | + + + + + | [facility] | [address] | [place] | [phone] | | [facility] | | [address] | | | - LABORATORY | | | | + + + + + | [facility] | [address] | [place] | | | [facility] | | [address] | | | - LABORATORY | | [...] by: | | | | | | [facility], | | | | | | [address] | | | | | | [place] | | | | | | [address] | | | | + + + + + + + + | Specimen | + + | Blood specimen | | (specimen) | + + + + + + + | Performing | Address | City/State/[facility] | Phone Number | | Organization | | | | + + + + + | [facility] | [address] | [place] | [phone] | | [facility] | | [address] | | | - LABORATORY | | | | + + + + + | [facility] | [address] | [place] | | | [facility] | | [address] | | | - LABORATORY | | [...] ID | Reference range: NONE | | [facility] | | | | DETECTEDINTERPRETIVE [...] 500 | | | | | | [facility] | | | | | | [facility], [id number] CLIA: | | | | | | [id number] | | | | + + + + + + + + | Specimen | + + | Blood specimen | | (specimen) | + + + + + + + | Performing | Address | City/State/[facility]ode | Phone Number | | Organization | | | | + + + + + | [facility] | [address] | [place] | [phone] | | [facility] | | [address] | | | - LABORATORY | | | | + + + + + | [facility] | [address] | [place] | | | [facility] | | [address] | | | - LABORATORY | | [...] 500 | | | | | | [facility] | | | | | | [facility], [id number] CLIA: | | | | | | [id number] | | | | + + + + + + + + | Specimen | + + | Blood specimen | | (specimen) | + + + + + + + | Performing | Address | City/State/Zipcode | Phone Number | | Organization | | | | + + + + + | [facility] | [address] | [place], [place] | [phone] | | [facility] | | [address] | | | - LABORATORY | | | | + + + + + | [facility] | [address] | [place], [place] | | | [facility] | | [address] | | | - LABORATORY | | [...] | | | | | | Diagnostics, [address] | | | | | | Corporate | | | | | | [place] [address] | | | | | | CLIA: [id number] | | | | + + + [...] [address] | [place] | [phone] | | [facility] | | [address] | | | - LABORATORY | | | | + + + + + | [facility] | [address] | [place] | | | [facility] | | [address] | | | - LABORATORY | | [...]
--- OUTSIDE RECORDS SUMMARY | ~2019-05-05 | XMS | Encounter Summary ---
Demographics + + + | Address | [address] | | | [place] [address] | + + + | Home Phone [...] [place] | | | | | [address] | | + + + + + Care Team Providers + +------+ + | Care Community Health Program Coordinator Name | Role | Phone | [...] W | | | | | | [place], | | | | | | [place] [address] | | | | | | [phone] | | | +--------+ + + + [...] Walsh OT - [facility]2014 [facility] [address] [place] [address] Oncology Rehab Screening Date: 08/15/2014 Patient Information Patient Name: Thea Carmona Date of : 1945 Age: 69 y.o. Patient was seen for follow up visit by [place] rehab physician. Patient very somnolent at time o f [...] | 2018 | Visit | | [address] | | | | | | [facility] | | | | | | [place] [address] | | | | | | [phone] | | | | | | | | +--------+ + + + + | 06/08/ | Office | Physical Medicine | Rocky Santos, | | | 2019 | Visit | and Rehabilitation | MD [address] | | | | | | [place] | | | | | | [address] | | | | | | | | +--------+ + + + + | 06/16/ | Appointment | Pulmonology | Eveline Jaffe | | | 2019 | | | MD [address] | | | | | | [address] [place] | | | | | | [place] [address] | | | | | | [phone] | | | | | | | | +--------+ + + + + | 06/16/ | Office | Pulmonology | Eveline Jaffe | | | 2019 | Visit | | MD [address] | | | | | | [address] [place] | | | | | | [place] [address] | | | | | | [phone] | | | | | | | | +--------+ + + + + | 08/24/ | Office | Cardiology | Anisha Lopez DO | | | 2020 | Visit | | [address] | | | | | | [place] | | | | | | [address] | | | | | | | | +--------+ + + + + documented as of this encounter Visit Diagnoses Not on filedocumented in this encounter"
--- OUTSIDE RECORDS SUMMARY | ~2019-05-05 | XMS | Encounter Summary ---
Demographics + + + | Address | [address] | | | [place] [address] | + + + | Home Phone [...] [place] | | | | | [address] | | + + + + + Care Team Providers + +------+ + | Care Realty Specialist Name | Role | Phone | + +------+ + | Caitlin Chino MD | PCP | | + +------+ + Encounter Details +--------+ + + + + | Date | Type | Department | Care Team | Description | +--------+ + + + + | 03/16/ | Hospital | [facility] | Soilacurtis Eveline | Chronic obstructive | | 2018 | Encounter | MED CTR PULMONARY | MD Raul [address] | pulmonary disease, | | | | FUNCTION [address] | [address] [place] | unspecified COPD | | | | [employer], | [place] [address] | type (HCC) | | | | [place] [address] | [phone] | | | | | [phone] | | | +--------+ + + + [...] | | | | | | [facility] | | | | | | [place] [address] | | | | | | [phone] | | | | | | | | +--------+ + + + + | 06/08/ | Office | Physical Medicine | Rocky Santos, | | | 2019 | Visit | and Rehabilitation | [address] | | | | | | [place] | | | | | | [address] | | | | | | | | +--------+ + + + + | 06/16/ | Appointment | Pulmonology | Eveline Jaffe | | | 2019 | | | MD [address] | | | | | | [address] [place] | | | | | | [place] [address] | | | | | | [phone] | | | | | | | | +--------+ + + + + | 06/16/ | Office | Pulmonology | Eveline Jaffe | | | 2019 | Visit | | MD [address] | | | | | | [address] [place] | | | | | | [place] [address] | | | | | | [phone] | | | | | | | | +--------+ + + + + | 08/24/ | Office | Cardiology | Anisha Lopez DO | | | 2019 | Visit | | [address] | | | | | | [place] | | | | | | [address] | | | | | | | [...]
--- OUTSIDE RECORDS SUMMARY | ~2019-05-05 | XMS | Encounter Summary ---
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 | | | | INFUSION [address] | [place], [place] | lung, unspecified | | | | [place], | [address] | laterality (HCC); | | | | [place] [address] | [phone] | Pulmonary nodules | | | | [phone] | | | +--------+ + + + [...] | | | | | [place] [address] | | | | | | [phone] | | | | | | | | +--------+ + + + + | 06/08/ | Office | Physical Medicine | Rocky Santos, | | | 2019 | Visit | and Rehabilitation | [address] | | | | | | [place] | | | | | | [address] | | | | | | | | +--------+ + + + + | 06/16/ | Appointment | Pulmonology | Eveline Jaffe | | | 2019 | | | MD [address] | | | | | | [address] [place] | | | | | | [place] [address] | | | | | | [phone] | | | | | | | | +--------+ + + + + | 06/16/ | Office | Pulmonology | Eveline Jaffe | | | 2019 | Visit | | MD Nichole Carter | | | | | | [address] [place] | | | | | | [place] [address] | | | | | | [phone] | | | | | | | | +--------+ + + + + | 08/24/ | Office | Cardiology | Anisha Lopez DO | | | 2019 | Visit | | [address] | | | | | | [place] | | | | | | [address] | | | | | | | [...] | [facility] | [address] | [place] | [phone] | | [facility] | | [address] | | | - LABORATORY | | [...] mL/min/1.73m2 | Janet VANN | | | CYMRO | RATE,ESTIMATED | | MEDICAL | | | | mL/min/1.97x4Uivz than | | CENTER - | | [...] [address] | [place] | [phone] | | [facility] | | [address] | | | - LABORATORY | | [...]
--- OUTSIDE RECORDS SUMMARY | ~2019-05-05 | XMS | Encounter Summary ---
Demographics + + + | Address | [address] | | | [place] [address] | + + + | Home Phone [...] [place] | | | | | [address] | | + + + + + Care Team Providers + +------+ + | Care Heavy Truck Technician Name | Role | Phone | [...] + + | 10/27/ | Hospital | [facility] | Giuliano Padilla, | | | 2018 | Encounter | MED CTR XRAY [address] | MD [address] [facility] | | | | | [place] | [place], [place] | | | | | [place] [address] | [address] | | | | | [phone] | | | +--------+ + + + [...] mg by mouth | | 0 | //20 | | | (PROTONIX) 40 mg | [...] | | | | type ([facility]) | | | | | | + [...] | | | | | [place] [address] | | | | | | [phone] | | | | | | | | +--------+ + + + + | 06/08/ | Office | Physical Medicine | Rocky Santos, | | | 2019 | Visit | and Rehabilitation | [address] | | | | | | [place] | | | | | | [address] | | | | | | | | +--------+ + + + + | 06/16/ | Appointment | Pulmonology | Eveline Jaffe | | 2019 | | | MD [address] | | | | | | [address] | | | | | | [place] [address] | | | | | | [phone] | | | | | | | | +--------+ + + + + | 06/16/ | Office | Pulmonology | Eveline Jaffe | | | 2019 | Visit | | MD Raul [address] | | | | | | [address] | | | | | | [place] [address] | | | | | | [phone] | | | | | | | | +--------+ + + + + | 08/24/ | Office | Cardiology | Anisha Lopez DO | | | 2019 | Visit | | [address] | | | | | | [place] | | | | | | [id number] | | | | | | | [...] + documented in this encounter Results SHEFALI AvilaRicVilla Stats No Charge (10/27/2017 11:14 AM PDT) [...]
--- OUTSIDE RECORDS SUMMARY | ~2019-05-05 | XMS | Encounter Summary ---
Demographics + + + | Address | [address] | | | [place] [address] | + + + | Home Phone [...] [place] | | | | | [address] | | + + + + + Care Team Providers + +------+ + | Care Bark Grinder Name | Role | Phone | + +------+ + | Davis Ivan MD | PCP | | + +------+ + Encounter Details +--------+ + + + + | Date | Type | Department | Care Team | Description | +--------+ + + + + | 06/26/ | Hospital | [facility] | Conversion | Pain | | 2015 | Encounter | CONVERSION DEP [address] | Transaction, | | | | | [place] SNYDER | Provider Unknown | | | | | [place] | [phone] | | | | | [address] | | | | | | [phone] | | | +--------+ + + + [...] | | | | | [place] [address] | | | | | | [phone] | | | | | | | | +--------+ + + + + | 06/08/ | Office | Physical Medicine | Rocky Santos, | | | 2019 | Visit | and Rehabilitation | [address] | | | | | | [place] | | | | | | [address] | | | | | | | | +--------+ + + + + | 06/16/ | Appointment | Pulmonology | Eveline Jaffe | | | 2019 | | | MD [address]ole [address] | | | | | | [address] | | | | | | [place] [address] | | | | | | [phone] | | | | | | | | +--------+ + + + + | 06/16/ | Office | Pulmonology | Eveline Jaffe | | | 2019 | Visit | | MD [address] | | | | | | [address] | | | | | | [place] [address] | | | | | | [phone] | | | | | | | | +--------+ + + + + | 08/24/ | Office | Cardiology | Anisha Lopez DO | | | 2019 | Visit | | [address] | | | | | | [place] | | | | | | [address] | | | | | | | [...]
--- OUTSIDE RECORDS SUMMARY | ~2019-05-05 | XMS | Encounter Summary ---
Demographics + + + | Address | [address] | | | [place] [address] | + + + | Home Phone [...] [place] | | | | | [address] | | + + + + + Care Team Providers + +------+ + | Care Capacity Planning Manager Name | Role | Phone [...] + + | 10/07/ | Telephone | [facility] | Melony Dhaliwal, | Other | | 2013 | | [facility] | RN | | | | | ONCOLOGY CLINIC [address] | | | | | | [address] | | | | | | [place] [address] | | | | | | [phone] | | | +--------+ + + + [...] W | | | | | | [facility] | | | | | | [place] [address] | | | | | | [phone] | | | | | | | | +--------+ + + + + | 06/08/ | Office | Physical Medicine | Rocky Santos, | | | 2019 | Visit | and Rehabilitation | [address] | | | | | | [place] | | | | | | [address] | | | | | | | | +--------+ + + + + | 06/16/ | Appointment | Pulmonology | Eveline Jaffe | | | 2019 | | | MD [address] | | | | | | [address] | | | | | | [place], [place] [address] | | | | | | [phone] | | | | | | | | +--------+ + + + + | 06/16/ | Office | Pulmonology | Eveline Jaffe | | | 2019 | Visit | | MD [address] | | | | | | [address] | | | | | | [place] [address] | | | | | | [phone] | | | | | | | | +--------+ + + + + | 08/24/ | Office | Cardiology | Anisha Lopez DO | | | 2019 | Visit | | [address] | | | | | | [place] | | | | | | [address] | | | | | | | | +--------+ + + + + documented as of this encounter Visit Diagnoses Not on filedocumented in this encounter"
--- OUTSIDE RECORDS SUMMARY | ~2019-05-05 | XMS | Encounter Summary ---
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 ONSET 11/2014 NO FILMS [...] | | | | | laterality, | [address] | [place] [address] | | | | | sequela | [place], | Phone: | | | | | | [place] [address] | [phone] | | | | | | | Fax: | | | | | | | [phone] | +--------+ + + + + + Encounter Details +--------+---------+ + + + | Date | Type | Department | Care Team | Description | +--------+---------+ + + + | 03/14/ | Office | [facility] | Offenstein, | Preop testing | | 2015 | Visit | ORTHOPEDIC SURGERY | Ayana Looney MD | (Primary Dx); Other | | | | [address] [facility] | Giuliano Padilla MD | secondary | | | | [place], [place] | [address] [facility] [address] | osteoarthritis of | | | | [address] | [place] [address] | first | | | | [phone] | [phone] | carpometacarpal | | | | | [...] J anuary 2011 for the diagnosis of fmre-dr-iybn first [facility] arthritis She also has rheumatoid [...] pops with use and 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) on albuterol Spondylolisthesis of cervical region Spinal stenosis has tried cortisone injections Osteoporosis Depression Pneumonia 2009 hospitalized 5 days Rheumatoid arthritis(714.0) ([facility]) [facility] Hyperlipidemia on simvastatin Hypertension on clonidine and lisinopril Hypothyroidism GERD (gastroesophageal reflux disease) Stroke ([facility]) 2007 Stroke ([facility]) 2008 Squamous cell carcinoma of lung ([facility]) 07/2013 right lower lobe Sputum culture [...] 07/11/2014 EBUS with right hilar LN biopsy, [facility] Dr. Sierra Tunneled venous port placement N/A 07/28/2014 Procedure: Port Placement; Surgeon: Chalino Chiu MD; Location: [facility] MAIN OR Colonoscopy 06/2014 Endoscopy [...] daily. 60 tablet 3 Respiratory Therapy Supplies [facility] S9 auto CPAP 5-9 cm H2O. 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 It may have not [...] | 2018 | Visit | | [address] | | | | | | [facility] | | | | | | [place] [address] | | | | | | [phone] | | | | | | | | +--------+ + + + + | 06/08/ | Office | Physical Medicine | Rocky Santos, | | | 2019 | Visit | and Rehabilitation | MD Nichole [address] | | | | | | [place] | | | | | | [address] | | | | | | | | +--------+ + + + + | 06/16/ | Appointment | Pulmonology | Eveline Jaffe | | | 2019 | | | MD [address] | | | | | | [address] | | | | | | [place] [address] | | | | | | [phone] | | | | | | | | +--------+ + + + + | 06/16/ | Office | Pulmonology | Eveline Jaffe | | | 2019 | Visit | | MD [address] | | | | | | [address] | | | | | | [place] [address] | | | | | | [phone] | | | | | | | | +--------+ + + + + | 08/24/ | Office | Cardiology | Anisha Lopez DO | | | 2019 | Visit | | [address] | | | | | | [place] | | | | | | [address] | | | | | | | [...] + | [address] | [address] | [place] | [phone] | | [facility] | | [address] | | | - LABORATORY | | [...] mL/min/1.73m2 | [facility] | | | [place] | RATE,ESTIMATED | | MEDICAL | | | | mL/min/1.29a3Rony than | | CENTER - | | [...] [address] | [place] | [phone] | | [facility] | | [address] | | | - LABORATORY | | | | + + + + + documented in this encounter Visit Diagnoses + + | Diagnosis | + + | Preop testing - Primary Preoperative examination, unspecified | + + | Other secondary osteoarthritis of first carpometacarpal joint of left hand | + + documented in this encounter
--- OUTSIDE RECORDS SUMMARY | ~2019-05-05 | XMS | Encounter Summary ---
Demographics + + + | Address | [address] | | | [place] [address] | + + + | Home Phone [...] [place] | | | | | [address] | | + + + + + Care Team Providers + +------+ + | Care Dump Attendant Name | Role | Phone | [...] + + | 01/15/ | Refill | [facility] | Vivian, | Medication Refill | | 2014 | | MED CTR [facility] | Lokesh Gramajo MD [address] | | | | | ONCOLOGY CLINIC [address] | [facility] | | | | | W [facility] | [place] [address] | | | | | [place] [address] | [phone] | | | | | [phone] | | | +--------+--------+ + + + [...] | | | | | [place] [address] | | | | | | [phone] | | | | | | | | +--------+ + + + + | 06/08/ | Office | Physical Medicine | Rocky Santos, | | | 2019 | Visit | and Rehabilitation | [address] | | | | | | [place] | | | | | | [address] | | | | | | | | +--------+ + + + + | 06/16/ | Appointment | Pulmonology | Eveline Jaffe | | 2019 | | | MD [address] | | | | | | [address] | | | | | | [place] [address] | | | | | | [phone] | | | | | | | | +--------+ + + + + | 06/16/ | Office | Pulmonology | Eveline Jaffe | | | 2019 | Visit | | MD Nichole Carter | | | | | | [address] | | | | | | [place] [address] | | | | | | [phone] | | | | | | | | +--------+ + + + + | 08/24/ | Office | Cardiology | Anisha Lopez DO | | 2019 | Visit | | [address] | | | | | | [place] | | | | | | [address] | | | | | | | | +--------+ + + + + documented as of this encounter Visit Diagnoses + + | Diagnosis | + + | Gastroesophageal reflux disease without esophagitis - Primary Esophageal reflux | + + documented in this encounter"
--- OUTSIDE RECORDS SUMMARY | ~2019-05-05 | XMS | Encounter Summary ---
Demographics + + + | Address | [address] | | | [place] [address] | + + + | Home Phone [...] [place] | | | | | [address] | | + + + + + Care Team Providers + +------+ + | Care Battery Recharger Name | Role | Phone | + [...] + + | 12/22/ | Office | [facility] | Giuliano Padilla, | Postop check | | 2019 | Visit | ORTHOPEDIC SURGERY | [address] [facility] | (Primary Dx) | | | | [address] [facility] | [place] [facility] | | | | | [place] | [address] | | | | | [address] | | | | | | [phone] | | | +--------+---------+ + + + [...] | 2018 | Visit | | [address] | | | | | | [facility] | | | | | | [place] [address] | | | | | | [phone] | | | | | | | | +--------+ + + + + | 06/08/ | Office | Physical Medicine | Rocky Santos, | | | 2019 | Visit | and Rehabilitation | MD [address] | | | | | | [place] | | | | | | [address] | | | | | | | | +--------+ + + + + | 06/16/ | Appointment | Pulmonology | Eveline Jaffe | | | 2019 | | | MD [address] | | | | | | [address] | | | | | | [place] [address] | | | | | | [phone] | | | | | | | | +--------+ + + + + | 06/16/ | Office | Pulmonology | Eveline Jaffe | | | 2019 | Visit | | MD [address] | | | | | | [address] | | | | | | [place] [address] | | | | | | [phone] | | | | | | | | +--------+ + + + + | 08/24/ | Office | Cardiology | Anisha Lopez DO | | | 2019 | Visit | | [address] | | | | | | [place] | | | | | | [address] | | | | | | | | +--------+ + + + + documented as of this encounter Visit Diagnoses + + | Diagnosis | + + | Postop check - Primary Follow-up examination, following unspecified surgery | + + documented in this encounter"
--- OUTSIDE RECORDS SUMMARY | ~2019-05-05 | XMS | Encounter Summary ---
Demographics + + + | Address | [address] | | | [place] [address] | + + + | Home Phone [...] [place] | | | | | [address] | | + + + + + Care Team Providers + +------+ + | Care Operations Associate Name | Role | Phone | [...] + + | 01/20/ | Office | [facility] | Alfrdeenstein, | COPD (chronic | | 2013 | Visit | PULMONARY [address] | Ayana Looney MD | obstructive | | | | [place], | | pulmonary disease) | | | | [place] [address] | | (Primary Dx); MAR[place] | | | | [phone] | | (obstructive sleep | | | [...] regularly. They are looking in to physical aerodynamicist apy, such as water therapy. She does [...] [place]) on prednisone and methotrexate, Dr. 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 Respiratory Therapy Supplies Pure FocusC Respironics autotitrating CPAP at 5-9 cm H2O for life time. Mask, headgear, chin strap, hoses, humidifier chamber and filters. Dx: 327.23 1 each 0 Respiratory Therapy Supplies Pure FocusC ResMed S9 auto CPAP 5-9 cm H2O. [...] to ensure accuracy; however, inadvertent computerized dental technician apprentice errors may be pre sent. Electronically signed by: Ayana Taylor MD 01/20/2014 14:53 documented in t [...] | | | | | [place] [address] | | | | | | [phone] | | | | | | | | +--------+ + + + + | 06/08/ | Office | Physical Medicine | Rocky Santos, | | | 2019 | Visit | and Rehabilitation | [address] | | | | | | [place] | | | | | | [address] | | | | | | | | +--------+ + + + + | 06/16/ | Appointment | Pulmonology | Eveline Jaffe | | | 2019 | | | MD [address] | | | | | | [address] | | | | | | [place] [address] | | | | | | [phone] | | | | | | | | +--------+ + + + + | 06/16/ | Office | Pulmonology | Eveline Jaffe | | | 2019 | Visit | | MD [address] | | | | | | [address] | | | | | | [place] [address] | | | | | | [phone] | | | | | | | | +--------+ + + + + | 08/24/ | Office | Cardiology | Anisha Lopez DO | | | 2019 | Visit | | [address] | | | | | | [place] | | | | | | [address] | | | | | | | [...] | | Ayana Taylor MD 02/09/2014 9:00 [facility] CC: Davis Ivan | | + [...] Ayana Taylor MD [facility]/09[facility]2014 [facility] | |[facility] | | | |CC: Davis Ivan [...]
--- OUTSIDE RECORDS SUMMARY | ~2019-05-05 | XMS | Encounter Summary ---
Demographics + + + | Address | [address] | | | [place] [address] | + + + | Home Phone [...] [place] | | | | | [address] | | + + + + + Care Team Providers + +------+ + | Care Surveying Crew Rodman Name | Role | Phone | + +------+ + PCP | Unavailable | + +------+ + Encounter Details +--------+ + + + + | Date | Type | Department | Care Team | Description | +--------+ + + + + | 01/19/ | Hospital | [facility] | Silviano Cabrera MD | | | 2012 - | Encounter | [facility] [address] | [address] | | | | | [address] | [place], | | | 01/23/ | | [place], [place] | [place] [address] | | | 2012 | | [address] | [phone] | | | | | [phone] | | | +--------+ + + + [...] 1548 Date of Service: 01/28/131544 Status: Signed Auto Haulaway Driver: RITA Rubio (Advanced Registered Nurse Practitioner) [facility] Service: Orthopedic Surgery Brief Post-op Discharge [...] Status: Prior Activity restrictions and use of [place]/Soft collar was d/w patient. Follow up: F/U at [facility] within 2 weeks. Discharge Medication List as [...] 1149 Date of Service: 01/23/131148 Status: Signed Auto Haulaway Driver: Corrine Polk RN (Registered Nurse) Discharge instructions [...] 01/23/13926 Date of Service: 01/23/13917 Status: Signed Auto Haulaway Driver: Elsi Hernandez PT (Physical Therapist) 01/23/13917 PT [...] Date of Service: 01/22/13 104 Status: Signed Auto Haulaway Driver: BLAIR Raymundo (Occupational Therapist) 01/22/13 1047 Precautions [...] Date of Service: 01/22/13 1021 Status: Signed Auto Haulaway Driver: Elsi Hernandez PT (Physical Therapist) 01/22/13 1021 [...] limited by? Therapist/staff discretion Stair Management Technique Scyt-sshm-acho Activity Tolerance Activity Tolerance Patient limited by [...] 01/22/13822 Date of Service: 01/22/13820 Status: Signed Auto Haulaway Driver: RITA Rubio (Advanced Registered Nurse Practitioner) [facility] Service: Orthopedic Surgery Progress Note Hospital [...] Denver Arias PTA Service: (none) Author Type: Cisco Consultant Filed: 01/21/13 1503 Date of Service: 01/21/13 1502 Status: Signed Auto Haulaway Driver: Denver Arias PTA (Cisco Consultant) 01/21/13 1502 PT Last Visit PT Received [...] Date of Service: 01/21/13 1135 Status: Signed Auto Haulaway Driver: ANNAMARIE Charlton/Colette (Occupational Therapist) 01/21/13 1117 THERAPUTTY EXERCISE Theraputty exercises Rubber Calender Helper (caregiver services home, pinch, twist for increased fine motor control [...] Denver Arias PTA Service: (none) Author Type: Cisco Consultant Filed: 01/21/13 1032 Date of Service: 01/21/13 1031 Status: Signed Auto Haulaway Driver: Denver Arias PTA (Cisco Consultant) 01/21/13 1031 PT Last Visit PT Received [...] Date of Service: 01/20/13 1515 Status: Signed Auto Haulaway Driver: Ashlee Gomes PT (Physical Therapist) 01/20/13 1515 [...] living situation;Home with daytime assist Equipment Recommended Warp Hand Ashlee Mazariegos 01/21/20 13 10:12 AM PDT Progress Notes by Ashlee Gomes PT at 01/20/13 1012 Author: Ashlee Gomes PT Service: (none) Author Type: Physical Therapist Filed: 01/20/131736 Date of Service: 01/20/13 1012 Status: Signed Auto Haulaway Driver: Ashlee Gomes PT (Physical Therapist) 01/20/13 1012 PT Last Visit PT Received On 01/20/13 Reason for Treatment Spinal surgery (C4 - 6 fusion & diskectomy) Requires PT Follow Up Yes Follow up PT Only? No PT Eval/Reassessment Date 01/20/13 Assistance Required 1 person Senior Game Developer Needed No Requires PT Follow Up Yes [...] situation;Home with 24 hr supervision/assist Equipment Recommended Warp Hand Prior Function Level of [place] Household distance;Modified independent with functional mobility;Assi st [...] (none) Author Type: Physical Therapist Filed: 01/20/13 1741 Date of Service: 01/20/13 1012 Status: Signed Auto Haulaway Driver: Ashlee R Gomes, PT (Physical Therapist) 01/20/13 1012 PT Last Visit PT Received On 01/20/13 Reason for Treatment Spinal surgery (C4 - 6 fusion & diskectomy) Requires PT Follow Up Yes Follow up PT Only? No PT Eval/Reassessment Date 01/20/13 Assistance Required 1 person Senior Game Developer Needed No Precautions Spinal Precautions Cervical;Cervical collar [...] situation;Home with 24 hr supervision/assist Equipment Recommended Warp Hand Vidal Taylor - 01/20/2013 8:04 AM PDT Progress Notes by RITA Rubio at 01/20/13803 Author: RITA Rubio Service: (none) Author Type: Advanced Registered Nurse Practit ioner Filed: 01/20/13804 Date of Service: 01/20/13803 Status: Signed Auto Haulaway Driver: RITA Rubio (Advanced Registered Nurse Practitioner) [facility] [...] | BMI 30.81 kg/m2 | SpO2 94% {EXTENDEDVITALS:81230 Physical Exam Ortho Exam Drain 50cc 5-/5 bialteral deltoids strength. PROBLEM LIST Active Problems: * No active hospital problems. * ASSESSMENT & PLAN Ambulate with PT today. Disposition: Surgical inpatient Code Status: Full Code RIAT MONROE 01/20/2013 onversion Transaction, Prov ider Unknown - 01/19/2013 5:36 PM PDTFormatting of this note might be different from the or iginal. Progress Notes by BLAIR Charlton at 01/19/131735 Author: BLAIR Charlton Service: (none) Author Type: Occupational Therapist Filed: 01/19/131735 Date of Service: 01/19/131735 Status: Signed Auto Haulaway Driver: BLAIR Charlton (Occupational Therapist) 01/19/131715 Home Environment [...] wheeled;Walker 4 wheeled Prior Function Level of [place] Modified independent with functional mobility;Assist with ADLs;Assist [...] and handout) LE Dressing Adaptive Equipment Sock aid;Warp Hand;Elastic shoe laces;Button hook Arm Goals Pt Will Perform AROM B UE;2 sets;10 reps;With activity tolerance;Without significant change in vital signs;With good activity tolerance;3 sets (ST X 2 w/ handout LT X 3 independently) Pt Will Complete Theraputty Exer L UE;2 sets;Min resistance putty (yellow);With handout for visual cueing;With verbal cues;Independently (STG: caregiver services home/pinch/twist w/ vcs LTG: independent) Charity Farnsworth RPH - 01/19/2013 5:07 PM PDTFormatting of this note might be different from t janeth original. Progress Notes by Charity Leal RPH at 01/19/131706 Author: Charity Leal RPH Service: (none) Author Type: Pharmacist Filed: 01/19/131706 Date of Service: 01/19/131706 Status: Signed Auto Haulaway Driver: Charity Leal RPH (Pharmacist) Clinical Pharmacy Note - Renal Dose Adjustment Thea Carmona 67 y.o. female Ht Readings from Last 1 Encounters: 01/19/13 1.575 m (5' 2") Wt Readings from Last 1 Encounters: 01/19/13 76.4 kg (168 lb 6.9 oz) CREATININE Date Value Range Status 01/13/2013 1.06* 0.50 - 1.00 mg/dL Final Testing performed at [facility], [address] [place] [address] Creatinine clearance cannot be calculated - Pharmacy [...] | 2018 | Visit | | [address] | | | | | | [facility] | | | | | | [place] [address] | | | | | | [phone] | | | | | | | | +--------+ + + + + | 06/08/ | Office | Physical Medicine | Rocky Santos, | | | 2019 | Visit | and Rehabilitation | MD [address] | | | | | | [place] | | | | | | [address] | | | | | | | | +--------+ + + + + | 06/16/ | Appointment | Pulmonology | Eveline Jaffe | | | 2019 | | | MD [address] | | | | | | [address] | | | | | | [place] [address] | | | | | | [phone] | | | | | | | | +--------+ + + + + | 06/16/ | Office | Pulmonology | Eveline Jaffe | | | 2019 | Visit | | MD [address] | | | | | | [address] | | | | | | [place] [address] | | | | | | [phone] | | | | | | | | +--------+ + + + + | 08/24/ | Office | Cardiology | Anisha Lopez DO | | | 2019 | Visit | | [address] | | | | | | [place] | | | | | | [address] | | | | | | | [...]
--- OUTSIDE RECORDS SUMMARY | ~2019-05-05 | XMS | Encounter Summary ---
Demographics + + + | Address | [address] | | | [place] [address] | + + + | Home Phone [...] [place] | | | | | [address] | | + + + + + Care Team Providers + +------+ + | Care Smoke Tester Name | Role | Phone | + +------+ + | Davis Ivan MD | PCP | | + +------+ + Encounter Details +--------+ + + + + | Date | Type | Department | Care Team | Description | +--------+ + + + + | 12/21/ | Orders Only | [facility] | Provider, | Rheumatoid arthritis | | 2019 | | SYSTEM GENERIC OP | MD [address] | with rheumatoid | | | | CONVERSION [address] | [address] | factor ([facility]); | | | | [address] [place], [place] | [place] [address] | Rheumatoid arthritis | | | | [address] | | ([facility]) | | | | [phone] | | | +--------+ + + + [...] | | | | | | [facility] | | | | | | [place] [address] | | | | | | [phone] | | | | | | | | +--------+ + + + + | 06/08/ | Office | Physical Medicine | Rocky Santos, | | | 2019 | Visit | and Rehabilitation | [address] | | | | | | [place] | | | | | | [address] | | | | | | | | +--------+ + + + + | 06/16/ | Appointment | Pulmonology | Eveline Jaffe | | | 2019 | | | MD [address]ole [address] | | | | | | [address] [place] | | | | | | [place], [place] [address] | | | | | | [phone] | | | | | | | | +--------+ + + + + | 06/16/ | Office | Pulmonology | Eveline Jaffe | | | 2019 | Visit | | MD [address]ole Carter [address] | | | | | | [address] [place] | | | | | | [place] [address] | | | | | | [phone] | | | | | | | | +--------+ + + + + | 08/24/ | Office | Cardiology | Anisha Lopez DO | | | 2019 | Visit | | [address] | | | | | | [place] | | | | | | [address] | | | | | | | [...] | Differential | | e | arthritis ([facility]) | starting 01/14/2019 | | | | | | until 10/29/2019, 1 | | | | | | completed | + +------+--------+ + + | Comprehensive | Lab | Routin | Rheumatoid | 3 Occurrences | | Metabolic Panel | | e | arthritis ([facility]) | starting 01/14/2019 | | | | | | until 10/29/2019, 1 | | | | | | completed | + +------+--------+ + + | Sedimentation Rate | Lab | Routin | Rheumatoid | 3 Occurrences | | | | e | arthritis ([facility]) | starting 01/14/2019 | | | | | | until 10/29/2019, 1 | | | | | | completed | + +------+--------+ + + | C-Reactive Protein | Lab | Routin | Rheumatoid | 3 Occurrences | | | | e | arthritis ([facility]) | starting 01/14/2019 | | [...] REFERENCE | | | | performed at [facility] | | LAB | | | | [place] | | [facility] | | | | [address];[place] [address] | | LABORATORY | | + + + + + + + + | Specimen | + + | Blood | + + + + + + + | Performing | Address | City/State/Zipcode | Phone Number | | Organization | | | | + + + + + | REFERENCE LAB | [address] | [place] [address] | [phone] | | [facility] | Blvd[address] | | | | LABORATORY | | | | + + + + + | REFERENCE LAB | [address] | [place] [address] | | | [facility] | Bl[address] | [...] REFERENCE | | | | performed at [facility] | | LAB | | | | [place] | | [facility] | | | | [address];[place] [address] | | LABORATORY | | + + + + + + + + | Specimen | + + | Blood | + + + + + + + | Performing | Address | City/State/Zipcode | Phone Number | | Organization | | | | + + + + + | REFERENCE LAB | [address] [place] [address] | [place] [address] | [phone] | | [facility] | Blvd[address] | | | | LABORATORY | | | | + + + + + | REFERENCE LAB | [address] [place] [address] | [place] [address] | | | [facility] | Bl[address]. | [...] | | | | | | MDRD IDPA traceable | | | | | | equation.Testing | | | | | | performed at [facility] | | | | | | [facility] | | | | | | [facility];[place] [address] | | | | | | | | | | + + + + + + + + | Specimen | + + | Blood | + + + + + + + | Performing | Address | City/State/Zipcode | Phone Number | | Organization | | | | + + + + + | REFERENCE LAB | [address] [place] [address] | [place] [address] | [phone] | | [facility] | Blvd[address] | | | | LABORATORY | | | | + + + + + | REFERENCE LAB | [address] [place] [address] | [place] [address] | | | [facility] | Blvd. | [...] LAB | | | | performed at [facility] | | [facility] | | | | [place] | | LABORATORY | | | | Blvd;[place] [address] | | | | | | | | | | + + + + + + + + | Specimen | + + | Blood | + + + + + + + | Performing | Address | City/State/Zipcode | Phone Number | | Organization | | | | + + + + + | REFERENCE LAB | [address] [place] [address] | [place] [address] | [phone] | | [facility] | Blvd[address] | | | | LABORATORY | | | | + + + + + | REFERENCE LAB | [address] [place] [address] | [place] [address] | | | [facility] | Blvd. | | | | LABORATORY | | | | + + + + + documented in this encounter Visit Diagnoses + + | Diagnosis | + + | Rheumatoid arthritis with rheumatoid factor (HCC) Rheumatoid arthritis | + + | Rheumatoid arthritis (HCC) | + + documented in this encounter"
--- OUTSIDE RECORDS SUMMARY | ~2019-05-05 | XMS | Encounter Summary ---
Demographics + + + | Address | [address] | | | [place] [address] | + + + | Home Phone [...] [place] | | | | | [address] | | + + + + + Care Team Providers + +------+ + | Care Sheet Rock Taper Helper Name | Role | Phone | [...] | 10/02/ | Telephone | [facility] | Adelita Lu MD | Other | | 2014 | | MED CTR MEDICAL | [address] [facility] | | | | | ONCOLOGY CL[facility] [address] | [place] | | | | | [address] [facility] | [address] | | | | | [place] [address] | [phone] | | | | | [phone] | | | +--------+ + + + [...] | | | | | [place] [address] | | | | | | [phone] | | | | | | | | +--------+ + + + + | 06/08/ | Office | Physical Medicine | Rocky Santos, | | | 2019 | Visit | and Rehabilitation | [address] | | | | | | [place] | | | | | | [address] | | | | | | | | +--------+ + + + + | 06/16/ | Appointment | Pulmonology | Eveline Jaffe | | | 2019 | | | MD [address] | | | | | | [address] [place] | | | | | | [place] [address] | | | | | | [phone] | | | | | | | | +--------+ + + + + | 06/16/ | Office | Pulmonology | Eveline Jaffe | | | 2019 | Visit | | MD [address] Carter [address] | | | | | | [address] [place] | | | | | | [place], [place] [address] | | | | | | [phone] | | | | | | | | +--------+ + + + + | 08/24/ | Office | Cardiology | Anisha Lopez DO | | | 2019 | Visit | | [address] | | | | | | [place] | | | | | | [address] | | | | | | | | +--------+ + + + + documented as of this encounter Visit Diagnoses Not on filedocumented in this encounter"
--- OUTSIDE RECORDS SUMMARY | ~2019-05-05 | XMS | Encounter Summary ---
Demographics + + + | Address | [address] | | | [place] [address] | + + + | Home Phone [...] [place] | | | | | [address] | | + + + + + Care Team Providers + +------+ + | Care Broadcast Producer Name | Role | Phone | + +------+ + | Davis Ivan MD | PCP | | + +------+ + Encounter Details +--------+ + + + + | Date | Type | Department | Care Team | Description | +--------+ + + + + | 11/11/ | Hospital | [facility] GENERIC IP | Conversion | Pain | | 2013 | Encounter | CONVERSION [address] | Transaction, | | | | | [address] | Provider Unknown | | | | | [place] | [phone] | | | | | [address] | | | | | | [phone] | | | +--------+ + + + [...] | | | | | [place] [address] | | | | | | [phone] | | | | | | | | +--------+ + + + + | 06/08/ | Office | Physical Medicine | Rocky Santos, | | | 2019 | Visit | and Rehabilitation | [address] | | | | | | [place] | | | | | | [address] | | | | | | | | +--------+ + + + + | 06/16/ | Appointment | Pulmonology | Eveline Jaffe | | | 2019 | | | MD [address] | | | | | | [address] [place] | | | | | | [place] [address] | | | | | | [phone] | | | | | | | | +--------+ + + + + | 06/16/ | Office | Pulmonology | Eveline Jaffe | | | 2019 | Visit | | MD [address] | | | | | | [address] [place] | | | | | | [place] [address] | | | | | | [phone] | | | | | | | | +--------+ + + + + | 08/24/ | Office | Cardiology | Anisha Lopez DO | | | 2019 | Visit | | [address] | | | | | | [place] | | | | | | [address] | | | | | | | [...]
--- OUTSIDE RECORDS SUMMARY | ~2019-05-05 | XMS | Encounter Summary ---
Demographics + + + | Address | [address] | | | [place] [address] | + + + | Home Phone [...] [place] | | | | | [address] | | + + + + + Care Team Providers + +------+ + | Care Childcare Attendant Name | Role | Phone | [...] | | | | | Procedures | [address] | | | | | | OFFICE VISIT | Phone: | | | | | | REGULAR | [phone] | | | | | | | Fax: | | | | | | | [phone] | | +--------+--------+ + + + + Encounter Details +--------+---------+ + + + | Date | Type | Department | Care Team | Description | +--------+---------+ + + + | 11/11/ | Office | [facility] | Offenstein, | MARCE (obstructive | | 2013 | Visit | PULMONARY [address] | Ayana Looney MD | sleep apnea) | | | | [place], | | (Primary Dx); [place] | | | | [place] [address] | | (chronic obstructive | | | | [phone] | | pulmonary disease); | | | [...] hospitalized 5 days Rheumatoid arthritis(714.0) ([facility]) on prednisone and methotrexate, Dr. 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 Respiratory Therapy Supplies [facility] PollGround S9 auto CPAP 5-9 cm H2O. Heater [...] normal CPAP Data: Dates: 10/11/13-11/09/13 Machine type: Seldom Seen Adventures auto CPAP Home Health Company: In Home [...] continued struggles, we can refer to our [facility] CPAP clinic. 2.I reviewed how to appropriately [...] made to ensure accuracy; however, inadvertent computerized joiner apprentice errors may be pre sent. Electronically signed by: Ayana [place] MD 11/11/2013 14:09 documented in t his encounter Plan of Treatment +--------+ + + + + | Date | Type | Specialty | Care Team | Description | +--------+ + + + + | 05/30/ | Office | Rheumatology | Santosh Sumner, | | | 2019 | Visit | | [address] | | | | | | [place] | | | | | | [place] [address] | | | | | | [phone] | | | | | | | | +--------+ + + + + | 06/08/ | Office | Physical Medicine | Rocky Santos, | | | 2019 | Visit | and Rehabilitation | MD [address] | | | | | | [place] | | | | | | [address] | | | | | | | | +--------+ + + + + | 06/16/ | Appointment | Pulmonology | Eveline Jaffe | | | 2019 | | | MD Nichole Carter | | | | | | [address] | | | | | | [place] [address] | | | | | | [phone] | | | | | | | | +--------+ + + + + | 06/16/ | Office | Pulmonology | Eveline Jaffe | | | 2019 | Visit | | MD Nichole Carter | | | | | | [address] | | | | | | [place] [address] | | | | | | [phone] | | | | | | | | +--------+ + + + + | 08/24/ | Office | Cardiology | Anisha Lopez DO | | | 2020 | Visit | | [address] | | | | | | [place] | | | | | | [address] | | | | | | | [...]
--- OUTSIDE RECORDS SUMMARY | ~2019-05-05 | XMS | Encounter Summary ---
Demographics + + + | Address | [address] | | | [place] [address] | + + + | Home Phone [...] [place] | | | | | [address] | | + + + + + Care Team Providers + +------+ + | Care Drafter Geophysical Name | Role | Phone | + [...] + + | 08/29/ | Hospital | [facility] | Adelita Lu MD | 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 | | | | INFUSION [address] | [place], [place] | lung, unspecified | | | | [place], | [address] | laterality (HCC) | | | | [place] [address] | [phone] | | | | | [phone] | | | +--------+ + + + [...] 12:57 PM PDTPt arrived via WC by production technologist accessed and deaccessed per protocol discharged in [...] W | | | | | | [facility] | | | | | | [place] [address] | | | | | | [phone] | | | | | | | | +--------+ + + + + | 06/08/ | Office | Physical Medicine | Rocky Santos, | | | 2019 | Visit | and Rehabilitation | MD [address] | | | | | | [place] | | | | | | [address] | | | | | | | | +--------+ + + + + | 06/16/ | Appointment | Pulmonology | Eveline Jaffe | | | 2019 | | | MD Nichole Carter | | | | | | [address] [place] | | | | | | [place] [address] | | | | | | [phone] | | | | | | | | +--------+ + + + + | 06/16/ | Office | Pulmonology | Eveline Jaffe | | | 2019 | Visit | | MD Nichole Carter | | | | | | [address] [place] | | | | | | [place], [place] [address] | | | | | | [phone] | | | | | | | | +--------+ + + + + | 08/24/ | Office | Cardiology | Anisha Lopez DO | | | 2019 | Visit | | [address] | | | | | | [place] | | | | | | [address] | | | | | | | [...]
--- OUTSIDE RECORDS SUMMARY | ~2019-05-05 | XMS | Encounter Summary ---
Demographics + + + | Address | [address] | | | [place] [address] | + + + | Home Phone [...] [place] | | | | | [address] | | + + + + + Care Team Providers + +------+ + | Care Textile Knitter Name | Role | Phone | + [...] | | Cough | [place], | [address] | | | | | Procedures | Ayana B, | [place], | | | | | CT Chest w | MD [address] | [place] [address] | | | | | Contrast | [address] | Phone: | | | | | | [place], | [phone] | | | | | | [place] [address] | Fax: | | | | | | | [phone] | +--------+--------+ + + + + Reason for Visit +--------+ + | Reason | Comments | +--------+ + | COPD | | +--------+ + Encounter Details +--------+---------+ + + + | Date | Type | Department | Care Team | Description | +--------+---------+ + + + | 08/24/ | Office | [facility] | [place]enstein, | Cough (Primary Dx); | | 2014 | Visit | PULMONARY [address] | Ayana Looney MD | COPD (chronic | | | | [place] [place], | | obstructive | | | | [place] [address] | | pulmonary disease); | | | | [phone] | | Recurrent squamous | | | [...] a course of [facility]Tam[facility] nning of June from Dr. Ivan. We [...] Pneumonia 2009 hospitalized 5 days Rheumatoid arthritis(714.0) ([facility]) on prednisone and methotrexate, Dr. Lewis Pierce Hyperlipidemia on simvastatin Hypertension on clonidine and lisinopril Hypothyroidism GERD (gastroesophageal reflux disease) Stroke ([facility]) 2007 Stroke (HCC) 2008 Squamous cell carcinoma [...] 07/11/2014 EBUS with right hilar LN biopsy, [facility] Dr. 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 Respiratory Therapy Supplies [facility] ResMed S9 auto CPAP 5-9 cm H2O. [...] made to ensure accuracy; however, inadvertent computerized skip hoist engineer errors may be pre sent. documented in [...] | | | | | [place] [address] | | | | | | [phone] | | | | | | | | +--------+ + + + + | 06/08/ | Office | Physical Medicine | Rocky Santos, | | | 2019 | Visit | and Rehabilitation | [address] | | | | | | [place] | | | | | | [address] | | | | | | | | +--------+ + + + + | 06/16/ | Appointment | Pulmonology | Eveline Jaffe | | | 2019 | | | MD Nichole Carter | | | | | | [address] [place] | | | | | | [place] [address] | | | | | | [phone] | | | | | | | | +--------+ + + + + | 06/16/ | Office | Pulmonology | Eveline Jaffe | | | 2019 | Visit | | MD Nichole Carter [address] | | | | | | [address] [place] | | | | | | [place] [address] | | | | | | [phone] | | | | | | | | +--------+ + + + + | 08/24/ | Office | Cardiology | Anisha Lopez DO | | | 2019 | Visit | | [address] | | | | | | [place] | | | | | | [address] | | | | | | | [...] and XRT, known recurrent lung cancer COMPARISON: [facility] | | radiographs August 24 [...] + | [address] | [address] | [place], [place] | [phone] | | [facility] | | [address] | | | - IMAGING | | [...]
--- OUTSIDE RECORDS SUMMARY | ~2019-05-05 | XMS | Encounter Summary ---
Demographics + + + | Address | [address] | | | [place] [address] | + + + | Home Phone [...] [place] | | | | | [address] | | + + + + + Care Team Providers + +------+ + | Care Pattern Marker Name | Role | Phone | [...] | | cell | Ayana B, | [place] | | | | | carcinoma | MD [address] | [place], [place] | | | | | lung (HCC) | [address] | [address] | | | | | Procedures | [place], | Phone: | | | | | PET CT Skull | [place] [address] | [phone] | | | | | Base To Mid | | Fax: | | | | | Thigh | | [phone] | +--------+--------+ + + + + Reason [...] | | cell | Ayana Looney, | [place] | | | | | carcinoma | MD [address] | [place], [place] | | | | | lung (HCC) | [address] | [address] | | | | | Procedures | [place], | Phone: | | | | | PET CT Skull | [place] [address] | [phone] | | | | | Base To Mid | | Fax: | | | | | Thigh | | [phone] | +--------+--------+ + + + + Encounter Details +--------+ + + + + | Date | Type | Department | Care Team | Description | +--------+ + + + + | 08/11/ | Hospital | [facility] | Offenstein, | Squamous cell | | 2013 | Encounter | MED CTR PET SCAN | Ayana Looney MD | carcinoma lung (HCC) | | | | [address] [place] | | | | | | [place] [address] | | | | | | [phone] | | | +--------+ + + + [...] | 2018 | Visit | | [address] | | | | | | [facility] | | | | | | [place] [address] | | | | | | [phone] | | | | | | | | +--------+ + + + + | 06/08/ | Office | Physical Medicine | Rocky Santos, | | | 2019 | Visit | and Rehabilitation | MD Nichole Hind[address] | | | | | | [place] | | | | | | [address] | | | | | | | | +--------+ + + + + | 06/16/ | Appointment | Pulmonology | Eveline Jaffe | | | 2019 | | | MD Nichole Carter | | | | | | [address] [place] | | | | | | [place] [address] | | | | | | [phone] | | | | | | | | +--------+ + + + + | 06/16/ | Office | Pulmonology | Eveline Jaffe | | | 2019 | Visit | | MD Nichole Carter | | | | | | [address] [place] | | | | | | [place] [address] | | | | | | [phone] | | | | | | | | +--------+ + + + + | 08/24/ | Office | Cardiology | Anisha Lopez DO | | | 2019 | Visit | | [address] | | | | | | [place] [facility] [place] | | | | | | [address] | | | | | | | [...] x 2.1 cm (CT image 56, PET [id number]). Maximum | | | SUV is 6.26, [...] cm | | (CT image 56, PET [id number]). Maximum SUV is 6.26, consistent with the [...] + | MISCELLANEOUS LAB | | | [phone] | + +---------+ + + | MISCELANIOUS LAB | | | [phone] | + +---------+ + + documented in [...]
--- OUTSIDE RECORDS SUMMARY | ~2019-05-05 | XMS | Encounter Summary ---
Demographics + + + | Address | [address] | | | [place] [address] | + + + | Home Phone [...] [address] | | | | | [place] | | | | | [address] | | + + + + + Care Team Providers + +------+ + | Care Apparel Machinery Instructor Name | Role | Phone | + +------+ + | Davis Ivan MD | PCP | | + +------+ + Encounter Details +--------+ + + + + | Date | Type | Department | Care Team | Description | +--------+ + + + + | 06/02/ | Hospital | [facility] IP | Conversion | Neck pain | | 2013 | Encounter | CONVERSION [address] | Transaction, | | | | | [address] | Provider Unknown | | | | | [place] | [phone] | | | | | [address] | | | | | | [phone] | | | +--------+ + + + [...] | 2019 | Visit | | [address] | | | | | | [facility] | | | | | | [place] [address] | | | | | | [phone] | | | | | | | | +--------+ + + + + | 06/08/ | Office | Physical Medicine | Rocky Santos, | | | 2019 | Visit | and Rehabilitation | MD [address] | | | | | | [place] | | | | | | [address] | | | | | | | | +--------+ + + + + | 06/16/ | Appointment | Pulmonology | Eveline Jaffe | | | 2019 | | | MD [address] | | | | | | [address] [place] | | | | | | [place] [address] | | | | | | [phone] | | | | | | | | +--------+ + + + + | 06/16/ | Office | Pulmonology | Eveline Jaffe | | | 2019 | Visit | | MD [address]ole [address] | | | | | | [address] [place] | | | | | | [place] [address] | | | | | | [phone] | | | | | | | | +--------+ + + + + | 08/24/ | Office | Cardiology | Anisha Lopez DO | | | 2019 | Visit | | [address] | | | | | | [place] | | | | | | [address] | | | | | | | [...]
--- OUTSIDE RECORDS SUMMARY | ~2019-05-05 | XMS | Encounter Summary ---
Demographics + + + | Address | [address] | | | [place] [address] | + + + | Home Phone [...] [place] | | | | | [address] | | + + + + + Care Team Providers + +------+ + | Care Casting Machine Adjuster Name | Role | Phone | + +------+ + | Davis Ivan MD | PCP | | + +------+ + Encounter Details +--------+ + + + + | Date | Type | Department | Care Team | Description | +--------+ + + + + | 10/22/ | Hospital | [facility] | Giuliano Padilla, | Hyperlipidemia, | | 2018 | Encounter | MED CTR [facility]INE XRAY | MD Germania BARON | unspecified | | | | [address] [place] | [place], [place] | hyperlipidemia type; | | | | [place], [place] | [address] | Hypertension, | | | | [address] | | unspecified type; Hx | | | | [phone] | | of pulmonary | | | [...] | | | | | | type ([facility]) | | | | | | + [...] | | | | | [place] [address] | | | | | | [phone] | | | | | | | | +--------+ + + + + | 06/08/ | Office | Physical Medicine | Rocky Santos, | | | 2019 | Visit | and Rehabilitation | MD [address]ole [address] | | | | | | [place] | | | | | | [address] | | | | | | | | +--------+ + + + + | 06/16/ | Appointment | Pulmonology | Eveline Jaffe | | 2019 | | | MD Nichole Carter | | | | | | [address] [place] | | | | | | [place] [address] | | | | | | [phone] | | | | | | | | +--------+ + + + + | 06/16/ | Office | Pulmonology | Eveline Jaffe | | | 2019 | Visit | | MD Raul [address] | | | | | | [address] [place] | | | | | | [place] [address] | | | | | | [phone] | | | | | | | | +--------+ + + + + | 08/24/ | Office | Cardiology | Anisha Lopez DO | | | 2019 | Visit | | [address] | | | | | | [place] | | | | | | [address] | | | | | | | [...]
--- OUTSIDE RECORDS SUMMARY | ~2019-05-05 | XMS | Encounter Summary ---
Demographics + + + | Address | [address] | | | [place] [address] | + + + | Home Phone [...] [place] | | | | | [address] | | + + + + + Care Team Providers + +------+ + | Care Repair Department Supervisor Name | Role | Phone | [...] + + | 08/07/ | Hospital | [facility] | Adelita Lu MD | Recurrent squamous | | 2015 | Encounter | [facility] | [address] | cell carcinoma of | | | | [facility] [address] | [place] | lung, unspecified | | | | [place] | [address] | laterality (HCC) | | | | [place] [address] | [phone] | (Primary Dx) | | | | [phone] | | | +--------+ + + + [...] 08/07/2014 9:46 AM PDT Hem-Onc Progress Note [facility] Patient name:Thea Carmona : 1945 Age: 69 y.o. CSN: [id number] Date of Service: 08/07/2014 Identifying Statement: Thea Carmona is a 69 y.o. female from [facility] with clinical stage II, [...] lewis 2.CT-guided biopsy by [facility] radiology at [facility] of the right lung massshows squamous [...] Dr. Mace , thoracic surgeon at [facility] for consideration of broncho scopy, [...] [facility]) on prednisone and [facility]ate[facility] on simvastatin Hypertension on clonidine [...] mouth Daily. RESPIRATORY THERAPY SUPPLIES [facility]Med S9 auto CPAP 5-9 cm H2O. Heater and Humidifier . All necessary supplies. AHI 11.6. Diagnosis Code(s)327.23, also has co morbid hypertension , history of stroke. Length of Need 99 months. Please send order to [facility]. RESPIRATORY THERAPY SUPPLIES [employer] Respironics autotitrating CPAP at 5-9 cm H2O [...] K/uL Imaging: PET/CT scan June 2014: [facility]: Necrotic right lung lesion wit [...] this chart may have been created with [employer] voice recognition software. Occasi onal wrong-word or [...] | | | | | [place] [address] | | | | | | [phone] | | | | | | | | +--------+ + + + + | 06/08/ | Office | Physical Medicine | Rocky Santos, | | | 2019 | Visit | and Rehabilitation | MD Nichole Landis | | | | | | [place] | | | | | | [address] | | | | | | | | +--------+ + + + + | 06/16/ | Appointment | Pulmonology | Eveline Jaffe | | 2019 | | | MD [address] | | | | | | [address] | | | | | | [place] [address] | | | | | | [phone] | | | | | | | | +--------+ + + + + | 06/16/ | Office | Pulmonology | Eveline Jaffe | | | 2019 | Visit | | MD Raul [address] | | | | | | [address] | | | | | | [place] [address] | | | | | | [phone] | | | | | | | | +--------+ + + + + | 08/24/ | Office | Cardiology | Anisha Lopez DO | | | 2019 | Visit | | [address] | | | | | | [place] | | | | | | [address] | | | | | | | | +--------+ + + + + documented as of this encounter Visit Diagnoses + + | Diagnosis | + + | Recurrent squamous cell carcinoma of lung, unspecified laterality (HCC) - Primary | + + documented in this encounter
--- OUTSIDE RECORDS SUMMARY | ~2019-05-05 | XMS | Encounter Summary ---
Demographics + + + | Address | [address] | | | [place] [address] | + + + | Home Phone [...] [place] | | | | | [address] | | + + + + + Care Team Providers + +------+ + | Care Line Servicer Name | Role | Phone | [...] Looney MD | | | | | [place], | | | | | | [place] [address] | | | | | | [phone] | | | +--------+ + + + [...] | | | | | [place] [address] | | | | | | [phone] | | | | | | | | +--------+ + + + + | 06/08/ | Office | Physical Medicine | Rocky Santso, | | | 2019 | Visit | and Rehabilitation | MD [address] | | | | | | [place] | | | | | | [address] | | | | | | | | +--------+ + + + + | 06/16/ | Appointment | Pulmonology | Eveline Jaffe | | 2019 | | | MD [address] | | | | | | [address] [address] | | | | | | [place] [address] | | | | | | [phone] | | | | | | | | +--------+ + + + + | 06/16/ | Office | Pulmonology | Eveline Jaffe | | | 2019 | Visit | | MD Raul [address] | | | | | | [address] [address] | | | | | | [place] [address] | | | | | | [phone] | | | | | | | | +--------+ + + + + | 08/24/ | Office | Cardiology | Anisha Lopez DO | | | 2019 | Visit | | [address] | | | | | | [place] | | | | | | [address] | | | | | | | [...] FINDINGS: Stable left internal jugular line | [facility] | | with tip in [...] ST. | [address] | [place], [place] | [phone] | | [facility] | | [address] | | | - IMAGING | | | | + + + + + documented in this encounter Visit Diagnoses + + | Diagnosis | + + | Cough - Primary | + + documented in this encounter"
--- OUTSIDE RECORDS SUMMARY | ~2019-05-05 | XMS | Encounter Summary ---
Demographics + + + | Address | [address] | | | [place] [address] | + + + | Home Phone [...] [place] | | | | | [address] | | + + + + + Care Team Providers + +------+ + | Care Post Graduate Intern Name | Role | Phone | [...] + + | 03/07/ | Refill | [facility] | Evelyn Leyva | Medication Refill | | 2019 | | RHEUMATOLOGY [address] | [address] | | | | | [place] | [facility] | | | | | [place], [place] | [place] [address] | | | | | [address] | [phone] | | | | | [phone] | | | +--------+--------+ + + + [...] W | | | | | | [facility] | | | | | | [place] [address] | | | | | | [phone] | | | | | | | | +--------+ + + + + | 06/08/ | Office | Physical Medicine | Rocky Santos, | | | 2019 | Visit | and Rehabilitation | [address] | | | | | | [place] | | | | | | [address] | | | | | | | | +--------+ + + + + | 06/16/ | Appointment | Pulmonology | Eveline Jaffe | | | 2019 | | | MD [address]ole [address] | | | | | | [address] [place] | | | | | | [place] [address] | | | | | | [phone] | | | | | | | | +--------+ + + + + | 06/16/ | Office | Pulmonology | Eveline Jaffe | | | 2019 | Visit | | MD [address] | | | | | | [address] [place] | | | | | | [place] [address] | | | | | | [phone] | | | | | | | | +--------+ + + + + | 08/24/ | Office | Cardiology | Anisha Lopez DO | | | 2019 | Visit | | [address] | | | | | | [place] | | | | | | [address] | | | | | | | | +--------+ + + + + documented as of this encounter Visit Diagnoses + + | Diagnosis | + + | Rheumatoid arthritis, involving unspecified site, unspecified rheumatoid factor | | presence (HCC) - Primary | + + documented in this encounter"
--- OUTSIDE RECORDS SUMMARY | ~2019-05-05 | XMS | Encounter Summary ---
Demographics + + + | Address | [address] | | | [place] [address] | + + + | Home Phone [...] [place] | | | | | [address] | | + + + + + Care Team Providers + +------+ + | Care Manual Arts Teacher Name | Role | Phone | + +------+ + | Davis Ivan MD | PCP | | + +------+ + Encounter Details +--------+ + + + + | Date | Type | Department | Care Team | Description | +--------+ + + + + | 01/31/ | Hospital | [facility] | Conversion | Back pain | | 2013 | Encounter | CONVERSION [address] | Transaction, | | | | | [address] | Provider Unknown | | | | | [place] | [phone] | | | | | [address] | | | | | | [phone] | | | +--------+ + + + [...] | | | | | [place] [address] | | | | | | [phone] | | | | | | | | +--------+ + + + + | 06/08/ | Office | Physical Medicine | Rocky Santos, | | | 2019 | Visit | and Rehabilitation | MD [address]ole [address] | | | | | | [place] | | | | | | [address] | | | | | | | | +--------+ + + + + | 06/16/ | Appointment | Pulmonology | Eveline Jaffe | | 2019 | | | MD [address] | | | | | | [address] | | | | | | [place] [address] | | | | | | [phone] | | | | | | | | +--------+ + + + + | 06/16/ | Office | Pulmonology | Eveline Jaffe | | | 2019 | Visit | | MD Raul [address] | | | | | | [address] | | | | | | [place] [address] | | | | | | [phone] | | | | | | | | +--------+ + + + + | 08/24/ | Office | Cardiology | Anisha Lopez DO | | | 2019 | Visit | | [address] | | | | | | [place] | | | | | | [address] | | | | | | | [...]
--- OUTSIDE RECORDS SUMMARY | ~2019-05-05 | XMS | Encounter Summary ---
Demographics + + + | Address | [address] | | | [place] [address] | + + + | Home Phone [...] [place] | | | | | [address] | | + + + + + Care Team Providers + +------+ + | Care Education Faculty Member Name | Role | Phone | + +------+ + | Davis Ivan MD | PCP | | + +------+ + Encounter Details +--------+ + + + + | Date | Type | Department | Care Team | Description | +--------+ + + + + | 02/07/ | Hospital | [facility] | [place], | COPD (chronic | | 2013 | Encounter | MED CTR PULMONARY | Ayana Looney MD | obstructive | | | | FUNCTION [address] | | pulmonary disease) | | | | [place], | | | | | | [place] [address] | | | | | | [phone] | | | +--------+ + + + [...] | | | | | [place] [address] | | | | | | [phone] | | | | | | | | +--------+ + + + + | 06/08/ | Office | Physical Medicine | Rocky Santos, | | | 2019 | Visit | and Rehabilitation | MD Nichole Landis | | | | | | [place] | | | | | | [address] | | | | | | | | +--------+ + + + + | 06/16/ | Appointment | Pulmonology | Eveline Jaffe | | 2019 | | | MD Nichole Carter | | | | | | [address] [place] | | | | | | [place] [address] | | | | | | [phone] | | | | | | | | +--------+ + + + + | 06/16/ | Office | Pulmonology | Eveline Jaffe | | | 2019 | Visit | | MD Raul [address] | | | | | | [address] [place] | | | | | | [place] [address] | | | | | | [phone] | | | | | | | | +--------+ + + + + | 08/24/ | Office | Cardiology | Anisha Lopez DO | | | 2019 | Visit | | [address] | | | | | | [place] | | | | | | [address] | | | | | | | [...] PFT PULMONARY FUNCTION TESTING ORDERS Full PFT ([place] w/BD, lung volumes, diffusion)?: Yes (02/09/2014 9:04 [...] | | Ayana Taylor MD 02/09/2014 9:00 [facility] | | | [facility] CC: Gurvinderescobarvivienne Ivan | | + + [...] Ayana Taylor MD 02/09/2014 | [facility] Davis Ivan | [facility] | | | |CC: Davsi Ivan | + + documented in this [...]
--- OUTSIDE RECORDS SUMMARY | ~2019-05-05 | XMS | Encounter Summary ---
Demographics + + + | Address | [address] | | | [place] [address] | + + + | Home Phone [...] [place] | | | | | [address] | | + + + + + Care Team Providers + +------+ + | Care Roll On Worker Name | Role | Phone | + +------+ + | Davis Ivan MD | PCP | | + +------+ + Encounter Details +--------+ + + + + | Date | Type | Department | Care Team | Description | +--------+ + + + + | 05/20/ | Hospital | [facility] | Conversion | Pain | | 2018 | Encounter | CONVERSION [address] | Transaction, | | | | | [address] | Provider Unknown | | | | | [place] | [phone] | | | | | [address] | | | | | | [phone] | | | +--------+ + + + [...] | 2018 | Visit | | [address] | | | | | | [facility] | | | | | | [place] [address] | | | | | | [phone] | | | | | | | | +--------+ + + + + | 06/08/ | Office | Physical Medicine | Rocky Santos, | | | 2019 | Visit | and Rehabilitation | MD Nichole [address] | | | | | | [place] | | | | | | [address] | | | | | | | | +--------+ + + + + | 06/16/ | Appointment | Pulmonology | Eveline Jaffe | | | 2019 | | | MD Nichole [address] | | | | | | [address] [place] | | | | | | [place] [address] | | | | | | [phone] | | | | | | | | +--------+ + + + + | 06/16/ | Office | Pulmonology | Eveline Jaffe | | | 2019 | Visit | | MD Nichole [address] | | | | | | [address] [place] | | | | | | [place] [address] | | | | | | [phone] | | | | | | | | +--------+ + + + + | 08/24/ | Office | Cardiology | Anisha Lopez DO | | | 2019 | Visit | | [address] | | | | | | [place] | | | | | | [address] | | | | | | | [...]
--- OUTSIDE RECORDS SUMMARY | ~2019-05-05 | XMS | Encounter Summary ---
Demographics + + + | Address | [address] | | | [place] [address] | + + + | Home Phone [...] [place] | | | | | [address] | | + + + + + Care Team Providers + +------+ + | Care Service Officer Name | Role | Phone | [...] | | | [place] | | [place] [address] | | | | | finger, left | | Phone: | | | | | index | | [phone] | | | | | finger | | Fax: | | | | | [place] | | [phone] | | | | | finger, left | | | | | | | middle | | | | | | | finger | | | | | | | Procedures | | | | | | | [place] INCISE | | | | | | | FINGER | | | | | | | TENDON | | | | | | | [place] | | | | | | | INCISE | | | | | | | FINGER | | | | | | | TENDON | | | | | | | [place] | | | | | | | [...] + + | 12/14/ | Hospital | [facility] | Giuliano Padilla, | [place] finger, left | | 2019 | Encounter | MED CTR OR INTRA OP | MD [address] | index finger; | | | | [address] | [place], [place] | Trigger finger, left | | | | [place], [place] | [address] | middle finger; | | | | [address] | | [place] finger of | | | | [phone] | | left thumb; Tr[place] | | [...] | | | | | [place] [address] | | | | | | [phone] | | | | | | | | +--------+ + + + + | 06/08/ | Office | Physical Medicine | Rocky Santos, | | | 2019 | Visit | and Rehabilitation | MD [address] | | | | | | [place] | | | | | | [address] | | | | | | | | +--------+ + + + + | 06/16/ | Appointment | Pulmonology | Eveline Jaffe | | 2019 | | | MD Nichole [address] | | | | | | [address] | | | | | | [place] [address] | | | | | | [phone] | | | | | | | | +--------+ + + + + | 06/16/ | Office | Pulmonology | Eveline Jaffe | | 2019 | Visit | | MD Raul [address] | | | | | | [address] | | | | | | [place] [address] | | | | | | [phone] | | | | | | | | +--------+ + + + + | 08/24/ | Office | Cardiology | Anisha Lopez DO | | | 2019 | Visit | | [address] | | | | | | [place] | | | | | | [address] | | | | | | | [...] [address] | [place] | [phone] | | [facility] | | [address] | | | - LABORATORY | | [...] [address] | [place] | [phone] | | [facility] | | [address] | | | - LABORATORY | | [...]
--- OUTSIDE RECORDS SUMMARY | ~2019-05-05 | XMS | Encounter Summary ---
Demographics + + + | Address | [address] | | | [place] [address] | + + + | Home Phone [...] [place] | | | | | [address] | | + + + + + Care Team Providers + +------+ + | Care Information Management Specialist Name | Role | Phone | [...] + + | 10/27/ | Hospital | [facility] | Giuliano Padilla, | | | 2018 | Encounter | MED CTR XRAY [address] | MD [address] [facility] | | | | | [place] | [place], [place] | | | | | [place] [address] | [address] | | | | | [phone] | | | +--------+ + + + [...] | | | | | | type ([facility]) | | | | | [...] | | | | | [place] [address] | | | | | | [phone] | | | | | | | | +--------+ + + + + | 06/08/ | Office | Physical Medicine | Rocky Santos, | | | 2019 | Visit | and Rehabilitation | MD [address]ole [address] | | | | | | [place] | | | | | | [address] | | | | | | | | +--------+ + + + + | 06/16/ | Appointment | Pulmonology | Eveline Jaffe | | 2019 | | | MD [address]ole [address] | | | | | | [address] | | | | | | [place] [address] | | | | | | [phone] | | | | | | | | +--------+ + + + + | 06/16/ | Office | Pulmonology | Eveline Jaffe | | | 2019 | Visit | | MD Raul [address] | | | | | | [address] | | | | | | [place] [address] | | | | | | [phone] | | | | | | | | +--------+ + + + + | 08/24/ | Office | Cardiology | Anisha Lopez DO | | | 2019 | Visit | | [address] | | | | | | [place] | | | | | | [id number] | | | | | | | [...]
--- OUTSIDE RECORDS SUMMARY | ~2019-05-05 | XMS | Encounter Summary ---
Demographics + + + | Address | [address] | | | [place] [address] | + + + | Home Phone [...] [place] | | | | | [address] | | + + + + + Care Team Providers + +------+ + | Care Furniture Builder Name | Role | Phone | [...] + + | 10/02/ | Hospital | [facility] | Dimitri Kim, | Chronic obstructive | | 2015 - | Encounter | [facility] | MD Nichole ZAPATA | pulmonary disease, | | | | [address] [place] | [place] | unspecified COPD | | 10/05/ | | [place] [address] | [id number] | type (HCC) (Primary | | 2016 | | [phone] | | Dx); Recurrent | | | | | Bony Hernandez P, | squamous cell | | | | | MD [address] | carcinoma of lung, | | | | | [place], [place] | right (HCC); CAP | | | | | [id number] | (community acquired | | | | [...] f rom the original. HOSPITALIST DISCHARGE SUMMARY [facility] in [place], [place] Pt. Name/Age/: Thea Carmona 70 y.o. [...] mg by mouth Daily. Blood Pressure Cuff [facility] Please provide patient with appropriate sized blood [...] Department Center 11/07/2015 13:00 Ayana Taylor MD [facility] Follow-up Information Follow up with Davis Ivan MD In 2 weeks. Specialty: Family Medicine Contact information: [address] [facility] [address] [place] [address] Follow up issues and pending [...] 57 No results for input(s): PHART, PO2ART, WKS1XLF, K5UVFJMY, BEART in the last 168 hours. No results for input(s): BNP, DDIMER in the last 168 hours. Invalid input(s): CKTOTAL, TROPONINI, CKMBINDEX Recent Labs Lab 10/03/15 0535 INR 1.03 No results found for: POCGLU Patient was seen and examined today and [facility] Electronically signed by: Bony Hernandez MD 10/06/2015 11:37 Portions of this chart may have been created with [employer] voice recognition software. 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); MARCE (obstructive sleep apnea); Full [...] Value Units Date/Time Culture, Respiratory, Lower, Smear [[id number]] Collected: 10/03/15 1756 Order Status: Completed Lab Status: Final result Updated: 10/05/15 1458 Specimen Information: Respiratory / Sputum, expectorated Culture 2+ Usual Respiratory Aline 1+ Renee albicans Gram Stain Result 3+ White Blood Cells 2+ Epithelial cells 1+ Gram positive cocci Culture, Blood [[id number]] Collected: 10/03/15 1459 Order Status: Completed Lab Status: Preliminary result Updated: 10/04/15310 Specimen Information: Blood / Peripheral Blood Culture Result: No growth: Monitored continually by instrument for 5 days Culture, Blood [[id number]] Collected: 10/03/15 1448 Order Status: Completed Lab Status: Preliminary result Updated: 10/04/15310 Specimen Information: Blood / Peripheral Blood Culture Result: No growth: Monitored continually by instrument for 5 days Culture, Blood [[id number]] Order Status: Canceled Lab Status: No result Specimen Information: Blood / Peripheral Blood Culture, Urine [[id number]] Collected: 10/03/15 0543 Order Status: Completed Lab Status: Final result Updated: 10/05/15 1053 Specimen Information: Urine / Urine, clean catch Culture Result: 30,000 - 40,000 CFU/ml Mixed aline (multiple morphologies present) Comment: Suggests contamination with urogenital or skin aline. Culture, MRSA [[id number]] Collected: 10/03/15 0449 Order Status: Completed Lab [...] pain, productive cough, and fever. Transfer from [place] . She had SCC right lung with [...] the original. HOSPITALIST PROGRESS NOTE on 10/05/2015 [facility] Pt. Name/Age/: Thea Carmona 70 y.o. 1945 Med. Record Number: [id number] Primary Care Physician: Davis Ivan MD Date [...] last few weeks. Came to ER in [place] and was sent here for pneumonia. Sees [...] 57 No results for input(s): PHART, PO2ART, YWM4WCJ, J7MZRODR, BEART in the last 168 hours. No results for input(s): TROPONINT, BNP in the last 168 hours. Invalid input(s): CKTOTAL, TROPONINI, CKMBINDEX Recent Labs Lab 10/03/15 0535 INR 1.03 No results found for: POCGLU Micro results last 72hrs: Microbiology Results (72 hrs) Procedure Component Value Units Date/Time Culture, Respiratory, Lower, Smear [[id number]] Collected: 10/03/15 8896 Order Status: Completed Lab Status: Preliminary result Updated: 10/04/15 9332 Specimen Information: Respiratory / Sputum, expectorated Culture Culture in progress... 1+ Usual Respiratory Aline Gram Stain Result 3+ White Blood Cells 2+ Epithelial cells 1+ Gram positive cocci Culture, Blood [[id number]] Collected: 10/03/15 1459 Order Status: Completed Lab Status: Preliminary result Updated: 10/04/15 031 Specimen Information: Blood / Peripheral Blood Culture Result: No growth: Monitored continually by instrument for 5 days Culture, Blood [[id number]] Collected: 10/03/15 1448 Order Status: Completed Lab Status: Preliminary result Updated: 10/04/15310 Specimen Information: Blood / Peripheral Blood Culture Result: No growth: Monitored continually by instrument for 5 days Culture, Urine [[id number]] Collected: 10/03/15 0543 Order Status: Completed Lab Status: Final result Updated: 10/05/15 1053 Specimen Information: Urine / Urine, clean catch Culture Result: 30,000 - 40,000 CFU/ml Mixed aline (multiple morphologies present) Comment: Suggests contamination with urogenital or skin aline. Culture, MRSA [[id number]] Collected: 10/03/15 0449 Order Status: Completed Lab [...] hydroxide, ondansetron OR ondansetron DVT Prophylaxis Lovenox [facility] Documentation I expect this patient will be hospitalized for greater than 2-midnights and expect the post -hospital plan to be discharge to home or to an adult foster home. Electronically signed by: Bony Hernandez MD, 10/05/2015 12:17 [facility] Portions of this chart may have [...] history of COPD (chronic obstructive pulmonary disease) ([facility]); S pondylolisthesis of cervical region; Spinal stenosis; Osteoporosis; Depression; Pneumonia (2 009); Rheumatoid arthritis(714.0) ([facility]); Hyperlipidemia; Hypertension; Hypothyroidism; GERD (gastroesophageal reflux disease); Stroke ([facility]) (2006); Stroke ([facility]) (2007); Squamous cell c arcinoma of lung ([facility]) (07/2013); Sputum culture positive for Scopulariopsis species; 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 1+ Usual Respiratory Aline Gram Stain Result 3+ White Blood Cells 2+ Epithelial cells 1+ Gram positive cocci Culture, Blood [[id number]] Collected: 10/03/15 1459 Order Status: Completed Lab Status: Preliminary result Updated: 10/04/15310 Specimen Information: Blood / Peripheral Blood Culture Result: No growth: Monitored continually by instrument for 5 days Culture, Blood [[id number]] Collected: 10/03/15 1448 Order Status: Completed Lab Status: Preliminary result Updated: 10/04/15310 Specimen Information: Blood / Peripheral Blood Culture Result: No growth: Monitored continually by instrument for 5 days Culture, Blood [[id number]] Order Status: Canceled Lab Status: No result Specimen Information: Blood / Peripheral Blood Culture, Urine [[id number]] Collected: 10/03/15 0543 Order Status: Completed Lab Status: Preliminary result Updated: 10/04/1514 Specimen Information: Urine / Urine, clean catch Culture No growth to date Culture, MRSA [[id number]] Collected: 10/03/15 4692 Order Status: Completed Lab Status: Final result [...] pain, productive cough, and fever. Transfer from [place] . 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 1+ Usual Respiratory Aline Gram Stain Result 3+ White Blood Cells 2+ Epithelial cells 1+ Gram positive cocci Culture, Blood [[id number]] Collected: 10/03/15 1459 Order Status: Completed Lab Status: Preliminary result Updated: 10/04/15 031 Specimen Information: Blood / Peripheral Blood Culture Result: No growth: Monitored continually by instrument for 5 days Culture, Blood [[id number]] Collected: 10/03/15 1448 Order Status: Completed Lab Status: Preliminary result Updated: 10/04/15310 Specimen Information: Blood / Peripheral Blood Culture Result: No growth: Monitored continually by instrument for 5 days Culture, Blood [[id number]] Order Status: Canceled Lab Status: No result Specimen Information: Blood / Peripheral Blood Culture, Urine [[id number]] Collected: 10/03/15 0543 Order Status: Completed Lab Status: Preliminary result Updated: 10/04/15 0714 Specimen Information: Urine / Urine, clean catch Culture No growth to date Culture, MRSA [[id number]] Collected: 10/03/15 0449 Order Status: Completed Lab Status: Final result Updated: 10/04/15 0755 Specimen Information: Respiratory / Nares Culture Negative for MRSA by chromogenic agar method UA: moderate blood, 5-10 RBC, 5-10 squamous epi cells, few budding yeasts, bacteria (-) Recent Labs Lab 10/04/15 0447 10/03/15 0505 WBC 12.4* 16.4* CREA 0.92 1.00 Imagin10/04/15 [...] pain, productive cough, and fever. Transfer from [place] . She had SCC right lung with [...] AM PDT HOSPITALIST PROGRESS NOTE on 10/04/2015 [facility] Pt. Name/Age/: Thea Carmona 70 y.o. 1945 Med. Record Number: [id number] Primary Care Physician: Davis Ivan MD Date [...] last few weeks. Came to ER in [place] and was sent here for pneumonia. Sees [...] 57 No results for input(s): PHART, PO2ART, XAF4LYT, K3QFAVGF, BEART in the last 168 hours. No results for input(s): TROPONINT, BNP in the last 168 hours. Invalid input(s): CKTOTAL, TROPONINI, CKMBINDEX Recent Labs Lab 10/03/15 0535 INR 1.03 No results found for: POCGLU Micro results last 72hrs: Microbiology Results (72 hrs) Procedure Component Value Units Date/Time Culture, Respiratory, Lower, Smear [[id number]] Collected: 10/03/15 1756 Order Status: Completed Lab Status: Preliminary result Updated: 10/04/15 7695 Specimen Information: Respiratory / Sputum, expectorated Culture Culture in progress... 1+ Usual Respiratory Aline Gram Stain Result 3+ White Blood Cells 2+ Epithelial cells 1+ Gram positive cocci Culture, Blood [[id number]] Collected: 10/03/15 1459 Order Status: Completed Lab Status: Preliminary result Updated: 10/04/15310 Specimen Information: Blood / Peripheral Blood Culture Result: No growth: Monitored continually by instrument for 5 days Culture, Blood [[id number]] Collected: 10/03/15 1448 Order Status: Completed Lab Status: Preliminary result Updated: 10/04/15310 Specimen Information: Blood / Peripheral Blood Culture Result: No growth: Monitored continually by instrument for 5 days Culture, Urine [[id number]] Collected: 10/03/15 0543 Order Status: Completed Lab Status: Preliminary result Updated: 10/04/15 0714 Specimen Information: Urine / Urine, clean catch Culture No growth to date Culture, MRSA [[id number]] Collected: 10/03/15 0449 Order Status: Completed Lab [...] hydroxide, ondansetron OR ondansetron DVT Prophylaxis Lovenox [facility] Documentation I expect this patient will be hospitalized for greater than 2-midnights and expect the post -hospital plan to be discharge to home or to an adult foster home. Electronically signed by: Bony Hernandez MD, 10/04/2015 10:05 [facility] Portions of this chart may have been created withUniversity of California, [place] voice recognition software. 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 Transfer from [place] . She had SCC right lung with [...] AM PDT HOSPITALIST PROGRESS NOTE on 10/03/2015 [facility] Pt. Name/Age/: Thea Carmona 70 y.o. 1945 Med. Record Number: [id number] Primary Care Physician: Davis Ivan MD Date [...] last few weeks. Came to ER in [place] and was sent here f or pneumonia. Sees Dr. Park and Dr. Taylor. Placed on steroids and antibiotics as well as aggressive RT. No better this morning. Takes 8 mg dilaudid every 3 hours at [facility]. 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 Last chest CT six months ago here. With her rather large doses of dilaudid at [facility], we need to keep in mind the [...] 57 No results for input(s): PHART, PO2ART, EKP0ZZL, G5PLIHOR, BEART in the last 168 hours. No results for input(s): TROPONINT, BNP in the last 168 hours. Invalid input(s): CKTOTAL, TROPONINI, CKMBINDEX Recent Labs Lab 10/03/15 0535 INR 1.03 No results found for: POCGLU Micro results last 72hrs: Microbiology Results (72 hrs) Procedure Component Value Units Date/Time Culture, Urine [[id number]] Collected: 10/03/15 0543 Order Status: Resulted Lab Status: In process Updated: 10/03/1516 Specimen Information: Urine / Urine, clean catch Culture, MRSA [[id number]] Collected: 10/03/15 0449 Order Status: Sent Lab [...] hydroxide, ondansetron OR ondansetron DVT Prophylaxis Lovenox [facility] Documentation I expect this patient will be hospitalized for greater than 2-midnights and expect the post -hospital plan to be discharge to home or to an adult foster home. Electronically signed by: Bony Hernandez MD, 10/03/2015 8:19 [facility] Portions of this chart may have been created withUniversity of California, [place] voice recognition software. Occas ional wrong-word or [...] | 2018 | Visit | | MINI [address] | | | | | | [facility] | | | | | | [place] [address] | | | | | | [phone] | | | | | | | | +--------+ + + + + | 06/08/ | Office | Physical Medicine | Rocky Santos, | | | 2019 | Visit | and Rehabilitation | MD [address] | | | | | | [place] | | | | | | [address] | | | | | | | | +--------+ + + + + | 06/16/ | Appointment | Pulmonology | Eveline Jaffe | | | 2019 | | | MD [address]ole [address] | | | | | | [address] [place] | | | | | | [place] [address] | | | | | | [phone] | | | | | | | | +--------+ + + + + | 06/16/ | Office | Pulmonology | Eveline Jaffe | | | 2019 | Visit | | MD [address]ole [address] | | | | | | [address] [place] | | | | | | [place] [address] | | | | | | [phone] | | | | | | | | +--------+ + + + + | 08/24/ | Office | Cardiology | Anisha Lopez DO | | | 2019 | Visit | | [address] | | | | | | [place] | | | | | | [address] | | | | | | | [...] ST. | [address] | [place] | [phone] | | [facility] | | [address] | | | - LABORATORY | | [...] | 7 - 18 mg/dL | [facility] | | | | | | [facility] | | | | | | MEDICAL | | | | | | CENTER - | | | | | | LABORATORY | | + + + + + + | Creatinine | 0.92 | 0.60 - 1.30 | [facility] | | | | | mg/dL | [facility] | | | | | | MEDICAL | | | | | | CENTER - | | | | | | LABORATORY | | + + + + + + | eGFR if not | 60Comment: GLOMERULAR | >=60 | [facility] | | | | FILTRATION | mL/min/1.73m2 | [facility] | | | [facility] | RATE,ESTIMATED | | MEDICAL | | | | mL/min/1.55d8Wjzc than | | CENTER - | | [...] + | [facility] | [address] | [place] | [phone] | | [facility] | | [address] | | | - LABORATORY | | [...] [address] | [place] | [phone] | | [facility] | | [address] | | | - LABORATORY | | [...] | | | | Aline | | [facility] | | | | | | MEDICAL [...] [address] | [place] | [phone] | | [facility] | | [address] | | | - LABORATORY | | [...] + | [facility] | [address] | [place] | [phone] | | [facility] | | [address] | | | - LABORATORY | | [...] + | [facility] | [address] | [place], [place] | [phone] | | [facility] | | [address] | | | - LABORATORY | | [...] + | [facility] | [address] | [place] | [phone] | | [facility] | | [address] | | | - LABORATORY | | [...] - 1.030 | [facility] | | | [place] | | | [facility] | | [...] + | [facility] | [address] | [place] | [phone] | | [facility] | | [address] | | | - LABORATORY | | [...] [address] | [place] | [phone] | | [facility] | | [address] | | | - LABORATORY | | [...] + | [facility] | [address] | [place], [place] | [phone] | | [facility] | | [address] | | | - LABORATORY | | [...] | mL/min/1.73m2 | [facility] | | | [facility] | RATE,ESTIMATED | | MEDICAL | | | | mL/min/1.76d6Sunx than | | CENTER - | | [...] [address] | [place] | [phone] | | [facility] | | [address] | | | - LABORATORY | | [...] [address] | [place] | [phone] | | [facility] | | [address] | | | - LABORATORY | | [...] [address] | [place] | [phone] | | [facility] | | [address] | | | - LABORATORY | | [...]
--- OUTSIDE RECORDS SUMMARY | ~2019-05-05 | XMS | Encounter Summary ---
Demographics + + + | Address | [address] | | | [place] [address] | + + + | Home Phone [...] [place] | | | | | [address] | | + + + + + Care Team Providers + +------+ + | Care Line Up Examiner Name | Role | Phone | + +------+ + | Davis Ivan MD | PCP | | + +------+ + Encounter Details +--------+ + + + + | Date | Type | Department | Care Team | Description | +--------+ + + + + | 09/07/ | Hospital | [facility] | Off[place], | Leg edema, left | | 2015 | Encounter | [facility] | Ayana Looney MD | | | | | [address] | [place]ardo | | | | | [place] | A, Technologist | | | | | [address] | [place] | | | | | [phone] | [address] | | +--------+ + + + + [...] | | | | | [place] [address] | | | | | | [phone] | | | | | | | | +--------+ + + + + | 06/08/ | Office | Physical Medicine | Rocky Santos, | | | 2019 | Visit | and Rehabilitation | MD [address] | | | | | | [place] | | | | | | [address] | | | | | | | | +--------+ + + + + | 06/16/ | Appointment | Pulmonology | Eveline Jaffe | | | 2019 | | | MD [address] | | | | | | [address] | | | | | | [place] [address] | | | | | | [phone] | | | | | | | | +--------+ + + + + | 06/16/ | Office | Pulmonology | Ld Eveline | | | 2019 | Visit | | MD Raul [address] | | | | | | [address] | | | | | | [place] [address] | | | | | | [phone] | | | | | | | | +--------+ + + + + | 08/24/ | Office | Cardiology | Anisha Lopez DO | | | 2019 | Visit | | [address] | | | | | | [place] | | | | | | [address] | | | | | | | [...] | Claudia's nurse 1604 p.m. by the spray unit feeder. Dictated and | | | Signed by: [...] report was called | | to Dr. Aayna Taylor's nurse 1604 p.m. bythe spray unit feeder.Dictated and Signed by: | | Matheus Kapadia [...] Taylor's nurse 1604 p.m. by | |the spray unit feeder. | | | |Dictated and Signed by: Matheus Kapadia MD | | Electronically signed: 09/07/2014 4:43 PM | + + + + + + + | Performing | Address | City/State/Zipcode | Phone Number | | Organization | | | | + + + + + | [facility] | [address] | [place] | [phone] | | [facility] | | [address] | | | - IMAGING | | | | + + + + + documented in this encounter Visit Diagnoses + + | Diagnosis | + + | Leg edema, left Edema | + + documented in this encounter"
--- OUTSIDE RECORDS SUMMARY | ~2019-05-05 | XMS | Encounter Summary ---
Demographics + + + | Address | [address] | | | [place] [address] | + + + | Home Phone [...] [place] | | | | | [address] | | + + + + + Care Team Providers + +------+ + | Care Motion Picture Operator Name | Role | Phone | [...] + + | 06/08/ | Office | [facility] | Offenstein, | Chronic obstructive | | 2016 | Visit | PULMONARY [address] | Ayana Looney MD | pulmonary disease | | | | [place], | | with acute | | | | [place] [address] | | exacerbation (HCC) | | | | [phone] | | (Primary Dx); | | | [...] | | | | | | pneumonitis ([facility]) | +--------+---------+ + + + [...] Do an overnight oxygen test through [facility]. Call the ADOP before yo u pick it up to make sure they have a box available. You will pick out hand a box at the [email or web address]. Do the test on room air. Wear [...] CENTER) on prednisone and methotrexate, Dr. Lewis, [place] Hyperlipidemia on simvastatin Hypertension on clonidine and lisinopril Hypothyroidism GERD (gastroesophageal reflux disease) Stroke ([facility]) 2006 Stroke ([facility]) 2007 Squamous cell carcinoma of [...] Surgeon: Chalino Chiu MD; Location: [facility] MAIN OR Colonoscopy 06/2014 Endoscopy Hand arthroplasty Left 03/20/2015 Procedure: Left 1st C.M.C. Arthroplasty; Surgeon: Giuliano Padilla MD; Location: 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 60 tablet 3 Respiratory Therapy Supplies [facility]Med S9 auto CPAP 5-9 cm H2O. [...] Chronic obstructive pulmonary disease with acute exacerbation ([facility]) J44.1 491.21 Recent symptoms of exacerbation. We will treat with antibiotics and steroids. 2. Chronic obstructive pulmonary disease, unspecified COPD type ([facility]) J44.9 496 Did not fee l that she improved with use of Tudorza, so we will try putting on 4 times daily Duonebs. In additon, she is due for repeat nocturnal oximetry testing. Overnight oximetry, room air 3. MARCE (obstructive sleep apnea) G47.33 327.23 Mild, and not on CPAP. 4. Recurrent squamous cell carcinoma of lung, right ([facility]) C34.91 162.9 This appears stable currently, without recurrence. 5. Radiation pneumonitis ([facility]) J70.0 508.0 S/p treatment with steroids. She [...] made to ensure accuracy; however, inadvertent computerized parking lot manager errors may be pre sent. documented [...] | | | | | [place] [address] | | | | | | [phone] | | | | | | | | +--------+ + + + + | 06/08/ | Office | Physical Medicine | Rocyk Santos, | | | 2019 | Visit | and Rehabilitation | MD [address] | | | | | | [place] | | | | | | [address] | | | | | | | | +--------+ + + + + | 06/16/ | Appointment | Pulmonology | Eveline Jaffe | | | 2019 | | | MD Nichole Carter | | | | | | [address] [place] | | | | | | [place] [address] | | | | | | [phone] | | | | | | | | +--------+ + + + + | 06/16/ | Office | Pulmonology | Eveline Jaffe | | | 2019 | Visit | | MD Nichole Carter | | | | | | [address] | | | | | | [place], [place] [address] | | | | | | [phone] | | | | | | | | +--------+ + + + + | 08/24/ | Office | Cardiology | Anisha Lopez DO | | 2019 | Visit | | [address] | | | | | | [place] | | | | | | [address] | | | | | | | [...]
--- OUTSIDE RECORDS SUMMARY | ~2019-05-05 | XMS | Encounter Summary ---
Demographics + + + | Address | [address] | | | [place] [address] | + + + | Home Phone [...] [place] | | | | | [address] | | + + + + + Care Team Providers + +------+ + | Care Shirt Creaser Name | Role | Phone | + +------+ + | Davis Ivan MD | PCP | | + +------+ + Encounter Details +--------+ + + + + | Date | Type | Department | Care Team | Description | +--------+ + + + + | 09/08/ | Orders Only | [facility] | Tamiko Adair | Cough (Primary Dx) | | 2014 | | MED CTR RADIATION | MD Kathleen [address] | | | | | ONCOLOGY [address] | [place] | | | | | [place], | [address] | | | | | [place] [address] | | | | | | [phone] | | | +--------+ + + + [...] W | | | | | | [facility] | | | | | | [place] [address] | | | | | | [phone] | | | | | | | | +--------+ + + + + | 06/08/ | Office | Physical Medicine | Rocky Santos, | | | 2019 | Visit | and Rehabilitation | [address] | | | | | | [place] | | | | | | [address] | | | | | | | | +--------+ + + + + | 06/16/ | Appointment | Pulmonology | Eveline Jaffe | | | 2019 | | | MD Nichole Carter [address] | | | | | | [address] | | | | | | [place] [address] | | | | | | [phone] | | | | | | | | +--------+ + + + + | 06/16/ | Office | Pulmonology | Eveline Jaffe | | | 2019 | Visit | | MD Nichole Carter [address] | | | | | | [address] | | | | | | [place] [address] | | | | | | [phone] | | | | | | | | +--------+ + + + + | 08/24/ | Office | Cardiology | Anisha Lopez DO | | | 2019 | Visit | | [address] | | | | | | [place] | | | | | | [address] | | | | | | | | +--------+ + + + + documented as of this encounter Visit Diagnoses + + | Diagnosis | + + | Cough - Primary | + + documented in this encounter"
--- OUTSIDE RECORDS SUMMARY | ~2019-05-05 | XMS | Encounter Summary ---
Demographics + + + | Address | [address] | | | [place] [address] | + + + | Home Phone [...] [place] | | | | | [address] | | + + + + + Care Team Providers + +------+ + | Care Bulk Plant Agent Name | Role | Phone | [...] | | | | | | [place] [address] | | | | | | [phone] | | | +--------+ + + + [...] | | | | | [place] [address] | | | | | | [phone] | | | | | | | | +--------+ + + + + | 06/08/ | Office | Physical Medicine | Rocky Santos, | | | 2019 | Visit | and Rehabilitation | [address] | | | | | | [place] | | | | | | [address] | | | | | | | | +--------+ + + + + | 06/16/ | Appointment | Pulmonology | Eveline Jaffe | | | 2019 | | | MD Nichole Carter W | | | | | | [address] | | | | | | [place] [address] | | | | | | [phone] | | | | | | | | +--------+ + + + + | 06/16/ | Office | Pulmonology | Eveline Jaffe | | | 2019 | Visit | | MD Nichole Carter | | | | | | [address] | | | | | | [place], [place] [address] | | | | | | [phone] | | | | | | | | +--------+ + + + + | 08/24/ | Office | Cardiology | Anisha Lopez DO | | | 2019 | Visit | | [address] | | | | | | [place] | | | | | | [address] | | | | | | | | +--------+ + + + + documented as of this encounter Visit Diagnoses Not on filedocumented in this encounter"
--- OUTSIDE RECORDS SUMMARY | ~2019-05-05 | XMS | Encounter Summary ---
Demographics + + + | Address | [address] | | | [place] [address] | + + + | Home Phone [...] [place] | | | | | [address] | | + + + + + Care Team Providers + +------+ + | Care Sand Control Worker Name | Role | Phone | [...] + + | 10/11/ | Office | [facility] [place] | [place], | Cough; Squamous cell | | 2014 | Visit | PULMONARY [address] | Ayana Looney MD | lung cancer, | | | | [place], | | unspecified | | | | [place] [address] | | laterality (HCC); | | | | [phone] | | COPD (chronic | | | [...] with the records from the events at [facility] and [facility], I would agree that an [...] last radiation treatment. She was admitted to [facility]. She was treated with 3 days of: [...] CENTER) on prednisone and methotrexate, Dr. Lewis [place] Hyperlipidemia on simvastatin Hypertension on clonidine and lisinopril Hypothyroidism GERD (gastroesophageal reflux disease) Stroke ([facility]) 2006 Stroke ([facility]) 2008 Squamous cell carcinoma of lung ([facility] [...] 07/11/2014 EBUS with right hilar LN biopsy, [facility] Dr. Sierra Tunneled venous port placement N/A 07/28/2014 Procedure: Port Placement; Surgeon: Chalino Chiu MD; Location: 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 60 tablet 1 Respiratory Therapy Supplies [facility] ResMed S9 auto CPAP 5-9 cm H2O. [...] in clinic today. Chest CT scan from [facility] was reviewed. This shows resolution of [...] made to ensure accuracy; however, inadvertent computerized agricultural researcher errors may be pre sent. documented in [...] | | | | | [place] [address] | | | | | | [phone] | | | | | | | | +--------+ + + + + | 06/08/ | Office | Physical Medicine | Rocky Santos, | | | 2019 | Visit | and Rehabilitation | MD [address] | | | | | | [place] | | | | | | [address] | | | | | | | | +--------+ + + + + | 06/16/ | Appointment | Pulmonology | Eveline Jaffe | | | 2019 | | | MD Nichole [address] | | | | | | [address] | | | | | | [place] [address] | | | | | | [phone] | | | | | | | | +--------+ + + + + | 06/16/ | Office | Pulmonology | Eveline Jaffe | | | 2019 | Visit | | MD Nichole Carter | | | | | | [address] | | | | | | [place] [address] | | | | | | [phone] | | | | | | | | +--------+ + + + + | 08/24/ | Office | Cardiology | Anisha Lopez DO | | | 2019 | Visit | | [address] | | | | | | [place] | | | | | | [address] | | | | | | | [...]
--- OUTSIDE RECORDS SUMMARY | ~2019-05-05 | XMS | Encounter Summary ---
Demographics + + + | Address | [address] | | | [place] [address] | + + + | Home Phone [...] [place] | | | | | [address] | | + + + + + Care Team Providers + +------+ + | Care Framing Carpenter Name | Role | Phone | [...] + + | 03/28/ | Office | [facility] | Giuliano Padilla, | Postop check | | 2014 | Visit | ORTHOPEDIC SURGERY | [address] | (Primary Dx) | | | | [address] [facility] | [place] | | | | | [place] | [address] | | | | | [address] | | | | | | [phone] | | | +--------+---------+ + + + [...] | 2018 | Visit | | [address] | | | | | | [facility] | | | | | | [place] [address] | | | | | | [phone] | | | | | | | | +--------+ + + + + | 06/08/ | Office | Physical Medicine | Rocky Santos, | | | 2019 | Visit | and Rehabilitation | MD [address]are[address] | | | | | | [place] | | | | | | [address] | | | | | | | | +--------+ + + + + | 06/16/ | Appointment | Pulmonology | Eveline Jaffe | | | 2019 | | | MD Nichole Carter [address] | | | | | | [address] | | | | | | [place] [address] | | | | | | [phone] | | | | | | | | +--------+ + + + + | 06/16/ | Office | Pulmonology | Eveline Jaffe | | | 2019 | Visit | | MD Nichole Carter [address] | | | | | | [address] | | | | | | [place] [address] | | | | | | [phone] | | | | | | | | +--------+ + + + + | 08/24/ | Office | Cardiology | Anisha Lopez DO | | | 2019 | Visit | | [address] | | | | | | [place], [place] | | | | | | [address] | | | | | | | | +--------+ + + + + documented as of this encounter Visit Diagnoses + + | Diagnosis | + + | Postop check - Primary Follow-up examination, following unspecified surgery | + + documented in this encounter
--- OUTSIDE RECORDS SUMMARY | ~2019-05-05 | XMS | Encounter Summary ---
Demographics + + + | Address | [address] | | | [place] [address] | + + + | Home Phone [...] [place] | | | | | [address] | | + + + + + Care Team Providers + +------+ + | Care Electrical Test Engineer Name | Role | Phone | + +------+ + | Davis Ivan MD | PCP | | + +------+ + Encounter Details +--------+ + + + + | Date | Type | Department | Care Team | Description | +--------+ + + + + | 07/27/ | Hospital | [facility] | [facility], | | | 2014 | Encounter | MED CTR SLEEP | Ayana Looney MD | | | | | [place] [address] | | | | | | [place] | | | | | | [address] | | | | | | [phone] | | | +--------+ + + + [...] | 2018 | Visit | | [address] | | | | | | [place] | | | | | | [place] [address] | | | | | | [phone] | | | | | | | | +--------+ + + + + | 06/08/ | Office | Physical Medicine | Rocky Santos, | | | 2019 | Visit | and Rehabilitation | MD Varela [address] | | | | | | [place] | | | | | | [address] | | | | | | | | +--------+ + + + + | 06/16/ | Appointment | Pulmonology | Eveline Jaffe | | | 2019 | | | MD Nichole Carter [address] | | | | | | [address] [place] | | | | | | [place] [address] | | | | | | [phone] | | | | | | | | +--------+ + + + + | 06/16/ | Office | Pulmonology | Eveline Jaffe | | | 2019 | Visit | | MD Nichole Carter [address] | | | | | | [address] | | | | | | [place] [address] | | | | | | [phone] | | | | | | | | +--------+ + + + + | 08/24/ | Office | Cardiology | Anisha Lopez DO | | | 2019 | Visit | | [address] | | | | | | [place] | | | | | | [address] | | | | | | | | +--------+ + + + + documented as of this encounter Visit Diagnoses Not on filedocumented in this encounter"
--- OUTSIDE RECORDS SUMMARY | ~2019-05-05 | XMS | Encounter Summary ---
Demographics + + + | Address | [address] | | | [place] [address] | + + + | Home Phone [...] [place] | | | | | [address] | | + + + + + Care Team Providers + +------+ + | Care Mainspring Fabrication Supervisor Name | Role | Phone | + +------+ + | Davis Ivan MD | PCP | | + +------+ + Encounter Details +--------+ + + + + | Date | Type | Department | Care Team | Description | +--------+ + + + + | 08/02/ | Hospital | [facility] | [place], | | | 2013 | Encounter | MED CTR EMERGENCY | Lokesh Horvath MD [address] | | | | | [address] | [address] [facility] | | | | | [place], [place] | [place] [address] | | | | | [address] | [phone] | | | | | [phone] | | | +--------+ + + + [...] | 2018 | Visit | | [address] | | | | | | [facility] | | | | | | [place] [address] | | | | | | [phone] | | | | | | | | +--------+ + + + + | 06/08/ | Office | Physical Medicine | Rocky Santos, | | | 2019 | Visit | and Rehabilitation | MD Nichole [address] | | | | | | [place] | | | | | | [address] | | | | | | | | +--------+ + + + + | 06/16/ | Appointment | Pulmonology | Eveline Jaffe | | | 2019 | | | MD Nichole [address] | | | | | | [address] [place] | | | | | | [place] [address] | | | | | | [phone] | | | | | | | | +--------+ + + + + | 06/16/ | Office | Pulmonology | Eveline Jaffe | | | 2019 | Visit | | MD Nichole Carter [address] | | | | | | [address] [place] | | | | | | [place] [address] | | | | | | [phone] | | | | | | | | +--------+ + + + + | 08/24/ | Office | Cardiology | Anisha Lopez DO | | | 2019 | Visit | | [address] | | | | | | [place] | | | | | | [address] | | | | | | | | +--------+ + + + + documented as of this encounter Visit Diagnoses Not on filedocumented in this encounter"
--- OUTSIDE RECORDS SUMMARY | ~2019-05-05 | XMS | Encounter Summary ---
Demographics + + + | Address | [address] | | | [place] [address] | + + + | Home Phone [...] [place] | | | | | [address] | | + + + + + Care Team Providers + +------+ + | Care Ladle Puller Name | Role | Phone | + [...] | | | | | | [place] [address] | | | | | | [phone] | | | +--------+ + + + [...] | | | | | [place] [address] | | | | | | [phone] | | | | | | | | +--------+ + + + + | 06/08/ | Office | Physical Medicine | Rocky Santos, | | | 2019 | Visit | and Rehabilitation | [address] | | | | | | [place] | | | | | | [address] | | | | | | | | +--------+ + + + + | 06/16/ | Appointment | Pulmonology | Eveline Jaffe | | 2019 | | | MD Nichole [address] | | | | | | [address] [place] | | | | | | [place] [address] | | | | | | [phone] | | | | | | | | +--------+ + + + + | 06/16/ | Office | Pulmonology | Eveline Jaffe | | | 2019 | Visit | | MD Nichole [address] | | | | | | [address] [place] | | | | | | [place] [address] | | | | | | [phone] | | | | | | | | +--------+ + + + + | 08/24/ | Office | Cardiology | Anisha Lopez DO | | | 2019 | Visit | | [address] | | | | | | [place] | | | | | | [address] | | | | | | | | +--------+ + + + + documented as of this encounter Visit Diagnoses + + | Diagnosis | + + | Obstructive sleep apnea (adult) (pediatric) - Primary | + + documented in this encounter"
--- OUTSIDE RECORDS SUMMARY | ~2019-05-05 | XMS | Encounter Summary ---
Demographics + + + | Address | [address] | | | [place] [address] | + + + | Home Phone [...] [place] | | | | | [address] | | + + + + + Care Team Providers + +------+ + | Care Property Management Bookkeeper Name | Role | Phone | + [...] | 09/20/ | Telephone | [facility] | Adelita Lu MD | Other | | 2014 | | MED CTR MEDICAL | [address] [facility] | | | | | ONCOLOGY CLINIC [address] | [place] | | | | | [facility] | [address] | | | | | [place] [address] | [phone] | | | | | [phone] | | | +--------+ + + + [...] W | | | | | | [facility] | | | | | | [place] [address] | | | | | | [phone] | | | | | | | | +--------+ + + + + | 06/08/ | Office | Physical Medicine | Rocky Santos, | | | 2019 | Visit | and Rehabilitation | [address] | | | | | | [place] | | | | | | [address] | | | | | | | | +--------+ + + + + | 06/16/ | Appointment | Pulmonology | Eveline Jaffe | | | 2019 | | | MD Nichole [address] | | | | | | [address] [place] | | | | | | [place] [address] | | | | | | [phone] | | | | | | | | +--------+ + + + + | 06/16/ | Office | Pulmonology | Eveline Jaffe | | | 2019 | Visit | | MD Nichole [address] | | | | | | [address] [place] | | | | | | [place], [place] [address] | | | | | | [phone] | | | | | | | | +--------+ + + + + | 08/24/ | Office | Cardiology | Anisha Lopez DO | | | 2019 | Visit | | [address] | | | | | | [place] | | | | | | [address] | | | | | | | | +--------+ + + + + documented as of this encounter Visit Diagnoses Not on filedocumented in this encounter"
--- OUTSIDE RECORDS SUMMARY | ~2019-05-05 | XMS | Encounter Summary ---
Demographics + + + | Address | [address] | | | [place] [address] | + + + | Home Phone [...] [place] | | | | | [address] | | + + + + + Care Team Providers + +------+ + | Care Senior Trainer Name | Role | Phone | + +------+ + | Caitlin Chino MD | PCP | | + +------+ + Encounter Details +--------+ + + + + | Date | Type | Department | Care Team | Description | +--------+ + + + + | 04/22/ | Hospital | [facility] | Rocky Santos, | Cervicalgia; History | | 2019 | Encounter | MED CTR XRAY [address] | MD [address] | of fusion of | | | | [place] | [place], [place] | cervical spine | | | | [place] [address] | [address] | | | | | [phone] | | | +--------+ + + + [...] [place]) | | | | | | + [...] [place]) | | | | | | + [...] | | | | | [place] [address] | | | | | | [phone] | | | | | | | | +--------+ + + + + | 06/08/ | Office | Physical Medicine | Rocky Santos, | | | 2019 | Visit | and Rehabilitation | [address] | | | | | | [place] | | | | | | [address] | | | | | | | | +--------+ + + + + | 06/16/ | Appointment | Pulmonology | Eveline Jaffe | | 2019 | | | MD [address]ole [address] | | | | | | [address] [place] | | | | | | [place] [address] | | | | | | [phone] | | | | | | | | +--------+ + + + + | 06/16/ | Office | Pulmonology | Eveline Jaffe | | | 2019 | Visit | | MD Nichole Carter [address] | | | | | | [address] [place] | | | | | | [place] [address] | | | | | | [phone] | | | | | | | | +--------+ + + + + | 08/24/ | Office | Cardiology | Anisha Lopez DO | | | 2019 | Visit | | [address] | | | | | | [place] | | | | | | [address] | | | | | | | [...]
--- OUTSIDE RECORDS SUMMARY | ~2019-05-05 | XMS | Encounter Summary ---
Demographics + + + | Address | [address] | | | [place] [address] | + + + | Home Phone [...] [place] | | | | | [address] | | + + + + + Care Team Providers + +------+ + | Care Manager Field Services Name | Role | Phone | [...] [place] | | | | | [place], | [address] | | | | | [place] [address] | | | | | | [phone] | | | +--------+ + + + [...] | | | | | [place] [address] | | | | | | [phone] | | | | | | | | +--------+ + + + + | 06/08/ | Office | Physical Medicine | Rocky Santos, | | | 2019 | Visit | and Rehabilitation | MD [address] | | | | | | [place] | | | | | | [address] | | | | | | | | +--------+ + + + + | 06/16/ | Appointment | Pulmonology | Eveline Jaffe | | 2019 | | | MD [address] | | | | | | [address] [place] | | | | | | [place] [address] | | | | | | [phone] | | | | | | | | +--------+ + + + + | 06/16/ | Office | Pulmonology | Eveline Jaffe | | | 2019 | Visit | | MD Raul [address] | | | | | | [address] [place] | | | | | | [place] [address] | | | | | | [phone] | | | | | | | | +--------+ + + + + | 08/24/ | Office | Cardiology | Anisha Lopez DO | | | 2019 | Visit | | [address] | | | | | | [place] | | | | | | [address] | | | | | | | | +--------+ + + + + documented as of this encounter Visit Diagnoses Not on filedocumented in this encounter"
--- OUTSIDE RECORDS SUMMARY | ~2019-05-05 | XMS | Encounter Summary ---
Demographics + + + | Address | [address] | | | [place] [address] | + + + | Home Phone [...] [place] | | | | | [address] | | + + + + + Care Team Providers + +------+ + | Care Industrial Designer Name | Role | Phone | [...] | | | | shoulder | [place] [address] | [place] | | | | | | Phone: | [address] | | | | | | [phone] | Phone: | | | | | | Fax: | [phone] | | | | | | [phone] | Fax: | | | | | | | [phone] | + +--------+ + + + + Encounter Details +--------+---------+ + + + | Date | Type | Department | Care Team | Description | +--------+---------+ + + + | 12/30/ | Office | [facility] | Rodney Worthy | Impingement syndrome | | 2019 | Visit | ORTHOPEDIC SURGERY | MD [address] | of right shoulder | | | | [address] | [facility] | (Primary Dx); | | | | [place], [place] | [place] [address] | Impingement syndrome | | | | [address] | [phone] | of left shoulder | | | | [phone] | | | +--------+---------+ + + + [...] strength Fever or chills Date Last Reviewed: 12/31/201519991179-9311 [employer] [address] [place] [address]. All righ ts reserved. This information is not intended as a substitute for professional medical care. Always follow your healthcare professional's instructions. documented in this encounter Progress Notes Rodney Worthy MD - 12/30/2018 2:30 PM PDTFormatting of this note might be dif ferent from the original. [facility] RETURN CLINIC VISIT Pt. Name/Age/: Thea Carmona [...] disease Arthritis COPD (chronic obstructive pulmonary disease) ([facility]) on albuterol Depression HONG (dyspnea on exertion) Full dentures upper & lower GERD (gastroesophageal reflux disease) Hyperlipidemia on simvastatin Hypertension on clonidine and lisinopril Hypothyroidism Obesity MARCE (obstructive sleep apnea) no CPAP Osteoporosis Pneumonia 2008 hospitalized 5 days 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 Lewis [place] [facility] Spinal stenosis has tried cortisone injections Spondylolisthesis of cervical region Sputum culture positive for Scopulariopsis species Squamous cell carcinoma of lung (HCC) 07/2013 right lower lobe Stroke (HCC) 2006 Stroke ([facility]) 2007 left sided weakness Upper GI bleed 06/2014 admitted [place] Wears dentures Past Surgical History: Procedure Laterality Date BACK SURGERY 03/2014 BLADDER SUSPENSION BRONCHOSCOPY 07/11/2014 EBUS with right hilar LN biopsy, [facility] Dr. Sierra CERVICAL SPINE SURGERY 2012 CHOLECYSTECTOMY COLONOSCOPY 06/2014 ENDOSCOPY FINGER TRIGGER RELEASE Left 12/14/2018 Procedure: Left Thumb Trigger Finger Release, Left Index Trigger Finger Release, Left Long Trigger Finger Release, Left Ring Trigger Finger Release; Surgeon: Giuliano Padilla MD; Lo cation: [facility] MA[facility] OR HAND ARTHROPLASTY Left 03/20/2015 Procedure: Left 1st C.M.C. Arthroplasty; Surgeon: Giuliano Padilla MD; Location: [facility] OR HAND ARTHROPLASTY Right 10/27/2017 Procedure: Right 1st CMC Arthroplasty; Surgeon: Giuliano Padilla MD; Location: [facility] MA[facility] O R HYSTERECTOMY LOBECTOMY 09/16/13 right lower lobe LUNG BIOPSY 07/21/13 right lower lobe SHOULDER SURGERY SHOULDER SURGERY right shoulder THUMB SURGERY TONGUE SURGERY benign per pt TUNNELED VENOUS PORT PLACEMENT N/A 07/28/2014 Procedure: Port Placement; Surgeon: Chalino Chiu MD; Location: [facility] MA[facility] OR Allergies: No Known Allergies [...] non-medical: Not on file Occupational History 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 Follow-up: Return in about 2 months (around 03/01/2019). with no x-ray Portions of this report were transcribed using voice recognition software. Every effort wa s made to ensure accuracy; however, inadvertent computerized invoicing machine operator errors may be pre sent. [...] | | | | | [place] [address] | | | | | | [phone] | | | | | | | | +--------+ + + + + | 06/08/ | Office | Physical Medicine | Rocky Santos, | | | 2019 | Visit | and Rehabilitation | MD Varela [address] | | | | | | [place] | | | | | | [address] | | | | | | | | +--------+ + + + + | 06/16/ | Appointment | Pulmonology | Eveline Jaffe | | | 2019 | | | MD [address] | | | | | | [address] [place] | | | | | | [place] [address] | | | | | | [phone] | | | | | | | | +--------+ + + + + | 06/16/ | Office | Pulmonology | Eveline Jaffe | | | 2019 | Visit | | MD [address] | | | | | | [address] [place] | | | | | | [place] [address] | | | | | | [phone] | | | | | | | | +--------+ + + + + | 08/24/ | Office | Cardiology | Anisha Lopez DO | | | 2019 | Visit | | [address] | | | | | | [place] | | | | | | [address] | | | | | | | [...]
--- OUTSIDE RECORDS SUMMARY | ~2019-05-05 | XMS | Encounter Summary ---
Demographics + + + | Address | [address] | | | [place] [address] | + + + | Home Phone [...] [place] | | | | | [address] | | + + + + + Care Team Providers + +------+ + | Care Helicopter Crew Chief Name | Role | Phone [...] Malignant | Jimmy C DO | [address] [place] | | | | | neoplasm of | [address] | [place], | | | | | lower lobe | [address] | [place] [id number] | | | | | of right | [place], | Phone: | | | | | lung (HCC) | [place] [id number] | [phone] | | | | | Procedures | Phone: | Fax: | | | | | CT Chest w | [phone] | [phone] | | | | | Contrast | Fax: | | | | | | | [phone] | | +--------+--------+ + + + + [...] right lung (HCC) | | | | [place], | [address] | (Primary Dx) | | | | [place] [address] | | | | | | [phone] | | | +--------+ + + + [...] | | | | | [place] [address] | | | | | | [phone] | | | | | | | | +--------+ + + + + | 06/08/ | Office | Physical Medicine | Rocky Santos, | | | 2019 | Visit | and Rehabilitation | MD [address] | | | | | | [place] | | | | | | [address] | | | | | | | | +--------+ + + + + | 06/16/ | Appointment | Pulmonology | Eveline Jaffe | | 2019 | | | MD [address] | | | | | | [place] | | | | | | [place] [address] | | | | | | [phone] | | | | | | | | +--------+ + + + + | 06/16/ | Office | Pulmonology | Eveline Jaffe | | | 2019 | Visit | | MD Raul [address] | | | | | | [place] | | | | | | [place] [address] | | | | | | [phone] | | | | | | | | +--------+ + + + + | 08/24/ | Office | Cardiology | Anisha Lopez DO | | | 2019 | Visit | | [address] | | | | | | [place] | | | | | | [address] | | | | | | | [...] [address] | [place] | [phone] | | [facility] | | [address] | | | - LABORATORY | | [...] mL/min/1.73m2 | [facility] | | | [facility] | | | MEDICAL | | | [...] [address] | [place] | [phone] | | [facility] | | [address] | | | - LABORATORY | | | | + + + + + documented in this encounter Visit Diagnoses + + | Diagnosis | + + | Malignant neoplasm of lower lobe of right lung (HCC) - Primary | + + documented in this encounter"
--- OUTSIDE RECORDS SUMMARY | ~2019-05-05 | XMS | Encounter Summary ---
Demographics + + + | Address | [address] | | | [place] [address] | + + + | Home Phone [...] [place] | | | | | [address] | | + + + + + Care Team Providers + +------+ + | Care Oxygen Plant Operator Name | Role | Phone [...] | | | | | | [place] [address] | | | | | | [phone] | | | +--------+ + + + [...] | | | | | [place] [address] | | | | | | [phone] | | | | | | | | +--------+ + + + + | 06/08/ | Office | Physical Medicine | Rocky Santos | | | 2019 | Visit | and Rehabilitation | [address] | | | | | | [place] | | | | | | [address] | | | | | | | | +--------+ + + + + | 06/16/ | Appointment | Pulmonology | Eveline Jaffe | | 2019 | | | MD [address] | | | | | | [address] [place] | | | | | | [place] [address] | | | | | | [phone] | | | | | | | | +--------+ + + + + | 06/16/ | Office | Pulmonology | Eevline Jaffe | | | 2019 | Visit | | MD [address] | | | | | | [address] [place] | | | | | | [place] [address] | | | | | | [phone] | | | | | | | | +--------+ + + + + | 08/24/ | Office | Cardiology | Anisha Lopez DO | | 2019 | Visit | | [address] | | | | | | [place] | | | | | | [address] | | | | | | | | +--------+ + + + + documented as of this encounter Visit Diagnoses Not on filedocumented in this encounter"
--- OUTSIDE RECORDS SUMMARY | ~2019-05-05 | XMS | Encounter Summary ---
Demographics + + + | Address | [address] | | | [place] [address] | + + + | Home Phone [...] [place] | | | | | [address] | | + + + + + Care Team Providers + +------+ + | Care Realtime Captioner Name | Role | Phone | + [...] | | | | | | [place] [address] | | | | | | [phone] | | | +--------+ + + + [...] | | | | | [place] [address] | | | | | | [phone] | | | | | | | | +--------+ + + + + | 06/08/ | Office | Physical Medicine | Rocky Santos, | | | 2019 | Visit | and Rehabilitation | MD [address] | | | | | | [place] | | | | | | [address] | | | | | | | | +--------+ + + + + | 06/16/ | Appointment | Pulmonology | Eveline Jaffe | | 2019 | | | MD [address] | | | | | | [place] | | | | | | [place] [address] | | | | | | [phone] | | | | | | | | +--------+ + + + + | 06/16/ | Office | Pulmonology | Eveline Jaffe | | | 2019 | Visit | | MD Raul [address] | | | | | | [place] | | | | | | [place] [address] | | | | | | [phone] | | | | | | | | +--------+ + + + + | 08/24/ | Office | Cardiology | Anisha Lopez DO | | | 2019 | Visit | | [address] | | | | | | [place] | | | | | | [address] | | | | | | | | +--------+ + + + + documented as of this encounter Visit Diagnoses Not on filedocumented in this encounter"
--- OUTSIDE RECORDS SUMMARY | ~2019-05-05 | XMS | Encounter Summary ---
Demographics + + + | Address | [address] | | | [place] [address] | + + + | Home Phone [...] [place] | | | | | [address] | | + + + + + Care Team Providers + +------+ + | Care Planning And Analysis Manager Name | Role | Phone | [...] + + | 10/27/ | Hospital | [facility] | Giuliano Padilla, | | | 2018 | Encounter | MED CTR XRAY [address] | MD [address] [facility] | | | | | [place] | [place], [place] | | | | | [place] [address] | [address] | | | | | [phone] | | | +--------+ + + + [...] | | | | | | type ([facility]) | | | | | [...] | | | | | [place] [address] | | | | | | [phone] | | | | | | | | +--------+ + + + + | 06/08/ | Office | Physical Medicine | Rocky Santos, | | | 2019 | Visit | and Rehabilitation | MD [address] | | | | | | [place] | | | | | | [address] | | | | | | | | +--------+ + + + + | 06/16/ | Appointment | Pulmonology | Eveline Jaffe | | 2019 | | | MD [address] | | | | | | [place] | | | | | | [place] [address] | | | | | | [phone] | | | | | | | | +--------+ + + + + | 06/16/ | Office | Pulmonology | Eveline Jaffe | | | 2019 | Visit | | MD Raul [address] | | | | | | [place] | | | | | | [place] [address] | | | | | | [phone] | | | | | | | | +--------+ + + + + | 08/24/ | Office | Cardiology | Anisha Lopez DO | | | 2019 | Visit | | [address] | | | | | | [place] | | | | | | [phone] | | | | | | | [...]
--- OUTSIDE RECORDS SUMMARY | ~2019-05-05 | XMS | Encounter Summary ---
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 [address] [place] [address], [place] [address]. All [facility] ts reserved. This information is not [...] may interact with prescription medicines or other pues-pqv-bhzagdo (OTC) drugs. The FDA recommends reading OTC medication labels careful ly to clearly understand the list of active ingredients, directions, and any precautions to help avoid taking too muchacetaminophen. If you have questions, ask your pharmacist or a [facility] health care provider. Managing Nausea Some people have [...] or skin changes (rash, itching, or hives). [phone] [employer]. [address] [place] [address], [place] [address]. All righ ts reserved. This information is [...] | | | | | [place] [address] | | | | | | [phone] | | | | | | | | +--------+ + + + + | 06/08/ | Office | Physical Medicine | Rocky Santos | | | 2019 | Visit | and Rehabilitation | [address] | | | | | | [place] | | | | | | [address] | | | | | | | | +--------+ + + + + | 06/16/ | Appointment | Pulmonology | Eveline Jaffe | | | 2019 | | | MD [address] | | | | | | [address] [place] | | | | | | [place] [address] | | | | | | [phone] | | | | | | | | +--------+ + + + + | 06/16/ | Office | Pulmonology | Eveline Jaffe | | | 2019 | Visit | | MD [address] | | | | | | [address] [place] | | | | | | [place] [address] | | | | | | [phone] | | | | | | | | +--------+ + + + + | 08/24/ | Office | Cardiology | Anisha Lopez DO | | | 2019 | Visit | | [address] | | | | | | [place] | | | | | | [address] | | | | | | | [...]
--- OUTSIDE RECORDS SUMMARY | ~2019-05-05 | XMS | Encounter Summary ---
Demographics + + + | Address | [address] | | | [place] [address] | + + + | Home Phone [...] [place] | | | | | [address] | | + + + + + Care Team Providers + +------+ + | Care Transformation Coach Name | Role | Phone | [...] + + | 09/19/ | Refill | [facility] | Adelita Lu MD | Medication Refill | | 2014 | | MED CTR MEDICAL | [address] [facility] | | | | | [facility]Y CLIN[facility] [address] | [place] | | | | | [address] | [address] | | | | | [place] [address] | [phone] | | | | | [phone] | | | +--------+--------+ + + + [...] | 2018 | Visit | | [address] [address] | | | | | | [facility] | | | | | | [place] [address] | | | | | | [phone] | | | | | | | | +--------+ + + + + | 06/08/ | Office | Physical Medicine | Rocky Santos, | | | 2019 | Visit | and Rehabilitation | [address] | | | | | | [place] | | | | | | [address] | | | | | | | | +--------+ + + + + | 06/16/ | Appointment | Pulmonology | Eveline Jaffe | | 2019 | | | MD [address] | | | | | | [address] [place] | | | | | | [place] [address] | | | | | | [phone] | | | | | | | | +--------+ + + + + | 06/16/ | Office | Pulmonology | Eveline Jaffe | | 2019 | Visit | | MD [address] | | | | | | [address] [place] | | | | | | [place] [address] | | | | | | [phone] | | | | | | | | +--------+ + + + + | 08/24/ | Office | Cardiology | Anisha Lopez DO | | 2019 | Visit | | [address] | | | | | | [place] | | | | | | [address] | | | | | | | | +--------+ + + + + documented as of this encounter Visit Diagnoses + + | Diagnosis | + + | Squamous cell lung cancer, unspecified laterality (HCC) - Primary | + + documented in this encounter"
--- OUTSIDE RECORDS SUMMARY | ~2019-05-05 | XMS | Encounter Summary ---
Demographics + + + | Address | [address] | | | [place] [address] | + + + | Home Phone [...] [place] | | | | | [address] | | + + + + + Care Team Providers + +------+ + | Care Flight Surveyor Name | Role | Phone | [...] + + | 04/17/ | Office | [facility] | Offenstein, | COPD (chronic | | 2013 | Visit | PULMONARY [address] | Ayana Looney MD | obstructive | | | | [place], | | pulmonary disease) | | | | [place] [address] | | (Primary Dx); MARCE | | | | [phone] | | (obstructive sleep | | | [...] an overnight oxy gen test through [facility]. Call the [facility] before you pick it up to make sure they have a box available. You will supervisor opening and picking a box at the [facility]. Do the t est on room air. [...] COPD (chronic obstructive pulmonary disease) ([facility]) on albuterol Spondylolisthesis of cervical region Spinal stenosis has tried cortisone injections Osteoporosis Depression Pneumonia 2009 hospitalized 5 days Rheumatoid arthritis(714.0) ([facility]) on prednisone and methotrexate, Dr. 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 Respiratory Therapy Supplies Narrative Respironics autotitrating CPAP at 5-9 cm H2O for life time. Mask, headgear, chin strap, hoses, humidifier chamber and filters. Dx: 327.23 1 each 0 Respiratory Therapy Supplies Narrative ResMed S9 auto CPAP 5-9 cm H2O. [...] made to ensure accuracy; however, inadvertent computerized intelligence officer basic errors may be pre sent. documented in [...] | | | | | [place] [address] | | | | | | [phone] | | | | | | | | +--------+ + + + + | 06/08/ | Office | Physical Medicine | Rocky Santos, | | | 2019 | Visit | and Rehabilitation | [address] | | | | | | [place] | | | | | | [address] | | | | | | | | +--------+ + + + + | 06/16/ | Appointment | Pulmonology | Eveline Jaffe | | | 2019 | | | MD [address] | | | | | | [address] [place] | | | | | | [place], [place] [address] | | | | | | [phone] | | | | | | | | +--------+ + + + + | 06/16/ | Office | Pulmonology | Eveline Jaffe | | | 2019 | Visit | | MD [address] | | | | | | [address] [place] | | | | | | [place] [address] | | | | | | [phone] | | | | | | | | +--------+ + + + + | 08/24/ | Office | Cardiology | Anisha Lopez DO | | | 2019 | Visit | | [address] | | | | | | [place] | | | | | | [address] | | | | | | | [...]
--- OUTSIDE RECORDS SUMMARY | ~2019-05-05 | XMS | Encounter Summary ---
Demographics + + + | Address | [address] | | | [place] [address] | + + + | Home Phone [...] [place] | | | | | [address] | | + + + + + Care Team Providers + +------+ + | Care Truck Manager Name | Role | Phone | [...] + + | 12/09/ | Office | [facility] [place] | Giuliano Padilla, | Pre-op testing | | 2019 | Visit | ORTHOPEDIC SURGERY | MD Germania BARON | (Primary Dx); | | | | [address] [facility] | [place] | Trigger finger of | | | | [place] | [address] | left thumb; Trigger | | | | [address] | | middle finger of | | | | [phone] | | left hand; Trigger | | [...] | 2018 | Visit | | [address] | | | | | | [facility] | | | | | | [place] [address] | | | | | | [phone] | | | | | | | | +--------+ + + + + | 06/08/ | Office | Physical Medicine | Rocky Santos, | | 2019 | Visit | and Rehabilitation | [address] | | | | | | [place] | | | | | | [address] | | | | | | | | +--------+ + + + + | 06/16/ | Appointment | Pulmonology | Eveline Jaffe | | | 2019 | | | MD [address] | | | | | | [address] [place] | | | | | | [place] [address] | | | | | | [phone] | | | | | | | | +--------+ + + + + | 06/16/ | Office | Pulmonology | Eveline Jaffe | | | 2019 | Visit | | MD Nichole Carter | | | | | | [address] [place] | | | | | | [place] [address] | | | | | | [phone] | | | | | | | | +--------+ + + + + | 08/24/ | Office | Cardiology | Anisha Lopez DO | | | 2019 | Visit | | [address] | | | | | | [place] | | | | | | [address] | | | | | | | [...] mL/min/1.73m2 | [facility] | | | [facility]ESE | RATE,ESTIMATED | | MEDICAL | | | | mL/min/1.84j6Hftr than | | CENTER - | | [...] ST. | [address] | [place] | [phone] | | [facility] | | [address] | | | - LABORATORY | | [...]
--- OUTSIDE RECORDS SUMMARY | ~2019-05-05 | XMS | Encounter Summary ---
Demographics + + + | Address | [address] | | | [place] [address] | + + + | Home Phone [...] [place] | | | | | [address] | | + + + + + Care Team Providers + +------+ + | Care Camp Director Name | Role | Phone | [...] | | Pulmonary | [place], | [address] [place] | | | | | nodule | Ayana B, | [place], | | | | | Procedures | MD [address] | [place] [address] | | | | | CT Chest wo | [address] | Phone: | | | | | Contrast | [place], | [phone] | | | | | | [place] [address] | Fax: | | | | | | | [phone] | +--------+--------+ + + + + Reason [...] | (Primary Dx); | | | | [place], | | Snoring; Depression | | | | [place] [address] | | | | | | [phone] | | | +--------+---------+ + + + [...] [place] [facility] [address] [place], [address] HPI Thea Carmona is a 67 y.o. [...] arthritis on prednisone and methotrexate, Dr. 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 documented [...] HOSPITAL | | | | | | [place] [address] | | | | | | [phone] | | | | | | | | +--------+ + + + + | 06/08/ | Office | Physical Medicine | Rocky Santos, | | | 2019 | Visit | and Rehabilitation | MD Nichole Hinds [address] | | | | | | [place] | | | | | | [address] | | | | | | | | +--------+ + + + + | 06/16/ | Appointment | Pulmonology | Evelnie Jaffe | | 2019 | | | MD Nichole Carter | | | | | | [address] [place] | | | | | | [place] [address] | | | | | | [phone] | | | | | | | | +--------+ + + + + | 06/16/ | Office | Pulmonology | Eveline Jaffe | | | 2019 | Visit | | MD Nichole Carter | | | | | | [address] [place] | | | | | | [place] [address] | | | | | | [phone] | | | | | | | | +--------+ + + + + | 08/24/ | Office | Cardiology | Anisha Lopez DO | | 2019 | Visit | | [address] | | | | | | [place] | | | | | | [address] | | | | | | | | +--------+ + + + + documented as of this encounter Results CT Chest wo Contrast (06/09/2013 3:45 PM PST) + + | Specimen | + + | | + + + + + | Narrative | Performed At | + + + | [facility] | [place] | | Department [address] [facility] [place] | [facility] | | [ rep ct street[address]] [ rep ct [facility] | | st zip] Signed | - IMAGING | | | | | Patient Name: THEA CARMONA Physician: | | | KATIE : 1945 Age: 68 Sex: F Unit #: [id number] | | | Exam Date: 06/09/13 Location: [facility] | | | Report #: [id number] Page: | | | %(RAD)RES..mtdd.print.filter("pg") of %(RAD) | | | RES..mtdd.print.filter("tpg") | | | | | | Accession Number: [id number] | | | CT CHEST WITHOUT CONTRAST, 06/09/2013 CLINICAL HISTORY: | | | FOLLOWUP NODULE IN THE SUPERIOR SEGMENT OF THE RIGHT LOWER LOBE. | | | TECHNIQUE: Axial images were obtained from thoracic inlet to | | | upper abdomen without the use of contrast. | | | COMPARISON: 01/28/2013 scan from [place]. FINDINGS: A | | | partially cavitary [...] Transcribed Date/Time: 06/09/2013 16:14 | | | Adjunct Instructor Of Women'S Studies: <<Signature on File>> | | | | | | Jose Elias Leal MD06/09/13 1702 <Electronically signed by | | | Jose Elias Leal MD> Jose Elias Leal MD 06/09/13 | | | 1545 Adjunct Instructor Of Women'S Studies: [employer] Kiwqqfezghyis60/09/14 0384 | | | Ayana Taylor MD | | + + + + + + + + | Performing | Address | City/State/Zipcode | Phone Number | | Organization | | | | + + + + + | [facility] | [address] | [place] | [phone] | | [facility] | | [address] | | | - IMAGING | | [...]
--- OUTSIDE RECORDS SUMMARY | ~2019-05-05 | XMS | Encounter Summary ---
Demographics + + + | Address | [address] | | | [place] [address] | + + + | Home Phone [...] [place] | | | | | [address] | | + + + + + Care Team Providers + +------+ + | Care Informatics Nurse Name | Role | Phone | [...] | ONCOLOGY [address] | [place] | | | | | [place], | [address] | | | | | [place] [address] | | | | | | [phone] | | | +--------+ + + + [...] W | | | | | | [facility] | | | | | | [place] [address] | | | | | | [phone] | | | | | | | | +--------+ + + + + | 06/08/ | Office | Physical Medicine | Rocky Santos, | | | 2019 | Visit | and Rehabilitation | [address] | | | | | | [place] | | | | | | [address] | | | | | | | | +--------+ + + + + | 06/16/ | Appointment | Pulmonology | Eveline Jaffe | | | 2019 | | | MD Nichole Carter [address] | | | | | | [address] [place] | | | | | | [place] [address] | | | | | | [phone] | | | | | | | | +--------+ + + + + | 06/16/ | Office | Pulmonology | Eveline Jaffe | | | 2019 | Visit | | MD Nichole Carter [address] | | | | | | [address] [place] | | | | | | [place] [address] | | | | | | [phone] | | | | | | | | +--------+ + + + + | 08/24/ | Office | Cardiology | Anisha Lopez DO | | | 2019 | Visit | | [address] | | | | | | [place] | | | | | | [address] | | | | | | | | +--------+ + + + + documented as of this encounter Visit Diagnoses + + | Diagnosis | + + | Cough - Primary | + + documented in this encounter"
--- OUTSIDE RECORDS SUMMARY | ~2019-05-05 | XMS | Encounter Summary ---
Demographics + + + | Address | [address] | | | [place] [address] | + + + | Home Phone [...] [place] | | | | | [address] | | + + + + + Care Team Providers + +------+ + | Care Power Grader Operator Name | Role | Phone | + +------+ + | Davis Ivan MD | PCP | | + +------+ + Encounter Details +--------+ + + + + | Date | Type | Department | Care Team | Description | +--------+ + + + + | 07/03/ | Hospital | [facility] | Jimmy Banegas DO | | | 2016 | Encounter | MED CTR RADIATION | [address] | | | | | ONCOLOGY [address] | [place] | | | | | [place], | [address] | | | | | [place] [address] | | | | | | [phone] | | | +--------+ + + + [...] 07/03/2015 12:00 AM PSTPATIENT: Thea Hernandez MathewDOS:07/03/2015#: [id number] :1945 Radiation Oncology Follow-up Clinic Note ICD/Diagnosis: 162.5 - Malignant neoplasm of lower lobe, bronchus or lung, Diagnosed 07/21/2013 (Active) CC: José Miguel Mace M.D. Davis Ivan M.D. Ja White M.D. Chief Complaint/History of Present Illness: Lung cancer I had the pleasure of seeing Thea Carmona today in clinic. She is a 69-year-old woman fro [facility] who was previously being diagnosed with [...] Ib(pT2a,pN0,M0). She was later reevaluated at the [facility] multidisciplinary thoracic conference due to [...] A PET sca n was performed at [facility] on June 27, 2015 confirming an oval [...] 0 = no pain and 10= worst [id number] your pain (quality) i.e. aching, s harp, [...] SACHIR Radiation Oncologist Department of Radiation Oncology [facility] This note was transcribed using [employer] speech recognition software. As a result, there ma y be unintended for medical and/or spelling errors. Every attempt is made to correct dicta tion. If there are any questions or errors please contact our office. Page 1 of 3 CSN: [id number] signed by Jimmy Banegas DO at 07/05/2015 2:42 PM PSTdoeric chen in this encounter Plan of Treatment +--------+ + + + + | Date | Type | Specialty | Care Team | Description | +--------+ + + + + | 05/30/ | Office | Rheumatology | Santosh Sumner, | | | 2018 | Visit | | [address] | | | | | | [facility] | | | | | | [place] [address] | | | | | | [phone] | | | | | | | | +--------+ + + + + | 06/08/ | Office | Physical Medicine | Rocky Santos, | | | 2019 | Visit | and Rehabilitation | MD Nichole Hinds [address] | | | | | | [place] | | | | | | [address] | | | | | | | | +--------+ + + + + | 06/16/ | Appointment | Pulmonology | Eveline Jafef | | | 2019 | | | MD Nichole Carter [address] | | | | | | [address] [place] | | | | | | [place] [address] | | | | | | [phone] | | | | | | | | +--------+ + + + + | 06/16/ | Office | Pulmonology | Eveline Jaffe | | | 2019 | Visit | | MD Nichole Carter [address] | | | | | | [address] [place] | | | | | | [place] [address] | | | | | | [phone] | | | | | | | | +--------+ + + + + | 08/24/ | Office | Cardiology | Anisha Lopez DO | | | 2019 | Visit | | [address] | | | | | | [place] | | | | | | [address] | | | | | | | | +--------+ + + + + documented as of this encounter Visit Diagnoses Not on filedocumented in this encounter"
--- OUTSIDE RECORDS SUMMARY | ~2019-05-05 | XMS | Encounter Summary ---
Demographics + + + | Address | [address] | | | [place] [address] | + + + | Home Phone [...] [place] | | | | | [address] | | + + + + + Care Team Providers + +------+ + | Care Parts Data Writer Name | Role | Phone | [...] + + | 09/08/ | Office | [facility] | [place], | MARCE (obstructive | | 2013 | Visit | PULMONARY [address] | Ayana Looney MD | sleep apnea) | | | | [place], | | (Primary Dx); COPD | | | | [place] [address] | | (chronic obstructive | | | | [phone] | | pulmonary disease) | +--------+---------+ + [...] CPAP machine yesterday. She had called the [facility], and mio forrester told her they would [...] [facility]) on prednisone and methotrexate, Dr. Lewis, [place] Hyperlipidemia on simvastatin Hypertension on clonidine and lisinopril Hypothyroidism GERD (gastroesophageal reflux disease) Stroke ([facility]) 2006 Stroke ([facility]) 2008 Squamous cell carcinoma of lung ([facility]) 07/2013 MARCE (obstructive sleep apnea) AHI 11.6 [...] mg by mouth Daily. Respiratory Therapy Supplies [facility] ResMed S9 auto [...] too tightly. She will work with the [employer] to adjust this or get a new [...] eling and coordination of care. CC: Davis vIan MD, José Miguel Mace MD Electronically signed [...] HOSPITAL | | | | | | [place] [address] | | | | | | [phone] | | | | | | | | +--------+ + + + + | 06/08/ | Office | Physical Medicine | Rocky Santos, | | 2019 | Visit | and Rehabilitation | [address] | | | | | | [place] | | | | | | [address] | | | | | | | | +--------+ + + + + | 06/16/ | Appointment | Pulmonology | Eveline Jaffe | | | 2019 | | | MD Nichole Carter | | | | | | [address] [place] | | | | | | [place] [address] | | | | | | [phone] | | | | | | | | +--------+ + + + + | 06/16/ | Office | Pulmonology | Eveline Jaffe | | | 2019 | Visit | | MD Nichole Carter [address] | | | | | | [address] [place] | | | | | | [place] [address] | | | | | | [phone] | | | | | | | | +--------+ + + + + | 08/24/ | Office | Cardiology | Anisha Lopez DO | | | 2019 | Visit | | [address] | | | | | | [place] | | | | | | [address] | | | | | | | [...]
--- OUTSIDE RECORDS SUMMARY | ~2019-05-05 | XMS | Encounter Summary ---
Demographics + + + | Address | [address] | | | [place] [address] | + + + | Home Phone [...] [place] | | | | | [address] | | + + + + + Care Team Providers + +------+ + | Care Holistic Specialist Name | Role | Phone | + +------+ + | Davis Ivan MD | PCP | | + +------+ + Encounter Details +--------+ + + + + | Date | Type | Department | Care Team | Description | +--------+ + + + + | 10/05/ | Hospital | [facility] | Adelita Lu MD | Squamous cell | | 2014 | Encounter | MED CTR MEDICAL | [address] [facility] | carcinoma of lung, | | | | ONCOLOGY CLINIC [address] | [place], [place] | stage II, right | | | | [facility] | [address] | (HCC) (Primary Dx) | | | | [place] [address] | [phone] | | | | | [phone] | | | +--------+ + + + [...] 10/05/2013 2:13 PM PDT Hem-Onc Progress Note [facility] Patient name:Thea Carmona : 1945 Age: 68 y.o. CSN: [id number] Date of Service: 10/05/2013 Identifying Statement: Thea Carmona is a 68 y.o. female from [facility] with clinical stage II, pathologic [...] lewis 2.CT-guided biopsy by interventional radiology at [facility] of the right lung massshows squamous cell [...] Dr. Mace , thoracic surgeon at [facility] for consideration of broncho scopy, [...] Diagnosis Date COPD (chronic obstructive pulmonary disease) ([facility]) on albuterol Spondylolisthesis of cervical region Spinal stenosis has tried cortisone injections Osteoporosis Depression Pneumonia 2009 hospitalized 5 days Rheumatoid arthritis(714.0) ([facility]) [facility] on simvastatin Hypertension on clonidine and lisinopril Hypothyroidism GERD (gastroesophageal reflux disease) Stroke ([facility]) 2006 Stroke ([facility]) 2007 Squamous cell carcinoma of lung ([facility]) 07/2013 MARCE (obstructive sleep apnea) [...] mg by mouth Daily. RESPIRATORY THERAPY SUPPLIES [facility] ResMed S9 auto CPAP 5-9 cm H2O. [...] | | | | | [place] [address] | | | | | | [phone] | | | | | | | | +--------+ + + + + | 06/08/ | Office | Physical Medicine | Rocky Santos, | | | 2019 | Visit | and Rehabilitation | MD [address]ole [address] | | | | | | [place] | | | | | | [address] | | | | | | | | +--------+ + + + + | 06/16/ | Appointment | Pulmonology | Eveline Jaffe | | | 2019 | | | MD Nichole Carter [address] | | | | | | [address] | | | | | | [place] [address] | | | | | | [phone] | | | | | | | | +--------+ + + + + | 06/16/ | Office | Pulmonology | Eveline Jaffe | | | 2019 | Visit | | MD Raul [address] | | | | | | [address] | | | | | | [place] [address] | | | | | | [phone] | | | | | | | | +--------+ + + + + | 08/24/ | Office | Cardiology | Anisha Lopez DO | | | 2019 | Visit | | [address] | | | | | | [place] | | | | | | [id number] | | | | | | | [...] | | | | | mg/dL | [facility] | | | | | | MEDICAL | | | | | | CENTER - | | | | | | LABORATORY | | + + + + + + | eGFR if not | >60Comment: GLOMERULAR | >=60 | [facility] | | | | FILTRATION | mL/min/1.73m2 | [facility] | | | CHINESE | RATE,ESTIMATED | | MEDICAL | | | | mL/min/1.76c0Ahuc than | | CENTER - | | [...] | | | | | mg/dL | [facility] | | | | | | MEDICAL [...] + | [facility] | [address] | [place] | [phone] | | [facility] | | [address] | | | - LABORATORY | | | | + + + + + | [facility] | [address] | [place], [place] | | | [facility] | | [address] | | | - LABORATORY | | [...] + | [facility] | [address] | [place] | [phone] | | [facility] | | [address] | | | - LABORATORY | | | | + + + + + | [facility] | [address] | [place] | | | [facility] | | [address] | | | - LABORATORY | | | | + + + + + documented in this encounter Visit Diagnoses + + | Diagnosis | + + | Squamous cell carcinoma of lung, stage II, right (HCC) - Primary | + + documented in this encounter"
--- OUTSIDE RECORDS SUMMARY | ~2019-05-05 | XMS | Encounter Summary ---
Demographics + + + | Address | [address] | | | [place] [address] | + + + | Home Phone [...] [place] | | | | | [address] | | + + + + + Care Team Providers + +------+ + | Care Script Writer Name | Role | Phone | [...] + + | 06/08/ | Office | [facility] | [place], | Chronic obstructive | | 2016 | Visit | PULMONARY [address] | Ayana Looney MD | pulmonary disease | | | | [place], | | with acute | | | | [place] [address] | | exacerbation (HCC) | | | | [phone] | | (Primary Dx); | | | [...] | | | | | | pneumonitis ([facility]) | +--------+---------+ + + + [...] Do an overnight oxygen test through [facility]. Call the [employer] before yo u pick it up to make sure they have a box available. You will parts picker a box at the [employer]. Do the test on room air. Wear [...] CENTER) on prednisone and methotrexate, Dr. Lewis, [place] Hyperlipidemia on simvastatin Hypertension on clonidine [...] hilar LN biopsy, [facility] Dr. Sierra Tunneled venous port placement N/A 07/28/2014 Procedure: Port Placement; Surgeon: Chalino Chiu MD; Location: [facility] MAIN OR Colonoscopy 06/2014 Endoscopy Hand arthroplasty Left 03/20/2015 Procedure: Left 1st C.M.C. 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 We will treat with antibiotics and steroids. 2. Chronic obstructive pulmonary disease, unspecified COPD type ([facility]) J44.9 496 Did not fee l that she improved with use of Tudorza, so we will try putting on 4 times daily Duonebs. In additon, she is due for repeat nocturnal oximetry testing. Overnight oximetry, room air 3. MARCE (obstructive sleep apnea) G47.33 327.23 Mild, and not on CPAP. 4. Recurrent squamous cell carcinoma of lung, right ([facility]) C34.91 162.9 This appears stable currently, without recurrence. 5. Radiation pneumonitis ([facility]) J70.0 508.0 S/p treatment with [...] made to ensure accuracy; however, inadvertent computerized hosiery knitter errors may be pre sent. documented in [...] | | | | | [place] [address] | | | | | | [phone] | | | | | | | | +--------+ + + + + | 06/08/ | Office | Physical Medicine | Rocky Santos, | | | 2019 | Visit | and Rehabilitation | MD [address] | | | | | | [place] | | | | | | [address] | | | | | | | | +--------+ + + + + | 06/16/ | Appointment | Pulmonology | Eveline Jaffe | | | 2019 | | | MD Nichole Carter | | | | | | [address] [place] | | | | | | [place] [address] | | | | | | [phone] | | | | | | | | +--------+ + + + + | 06/16/ | Office | Pulmonology | Eveline Jaffe | | | 2019 | Visit | | MD Nichole Carter | | | | | | [address] [place] | | | | | | [place], [place] [address] | | | | | | [phone] | | | | | | | | +--------+ + + + + | 08/24/ | Office | Cardiology | Anisha Lopez DO | | 2019 | Visit | | [address] | | | | | | [place] | | | | | | [address] | | | | | | | [...]
--- OUTSIDE RECORDS SUMMARY | ~2019-05-05 | XMS | Encounter Summary ---
Demographics + + + | Address | [address] | | | [place] [address] | + + + | Home Phone [...] [place] | | | | | [address] | | + + + + + Care Team Providers + +------+ + | Care Store Operations Associate Name | Role | Phone [...] | | cell | Ayana B, | [address] [place] | | | | | carcinoma | MD [address] | [place], [place] | | | | | lung (HCC) | [address] | [address] | | | | | Procedures | [place], | Phone: | | | | | PET CT Skull | [place] [address] | [phone] | | | | | Base To Mid | | Fax: | | | | | Thigh | | [phone] | +--------+--------+ + + + + Reason [...] | | cell | Ayana Looney, | [place] | | | | | carcinoma | MD [address] | [place], [place] | | | | | lung (HCC) | [address] | [address] | | | | | Procedures | [place], | Phone: | | | | | PET CT Skull | [place] [address] | [phone] | | | | | Base To Mid | | Fax: | | | | | Thigh | | [phone] | +--------+--------+ + + + + Encounter Details +--------+ + + + + | Date | Type | Department | Care Team | Description | +--------+ + + + + | 08/11/ | Hospital | [facility] | [place], | Squamous cell | | 2013 | Encounter | MED CTR PET SCAN | Ayana Looney MD | carcinoma lung (HCC) | | | | [address] [place] | | | | | | [place] [address] | | | | | | [phone] | | | +--------+ + + + [...] | 2018 | Visit | | [address] | | | | | | [facility] | | | | | | [place] [address] | | | | | | [phone] | | | | | | | | +--------+ + + + + | 06/08/ | Office | Physical Medicine | Rocky Santos, | | | 2019 | Visit | and Rehabilitation | MD Nichole Hinds [address] | | | | | | [place] | | | | | | [address] | | | | | | | | +--------+ + + + + | 06/16/ | Appointment | Pulmonology | Eveline Jaffe | | | 2019 | | | MD Nichole Carter | | | | | | [address] [place] | | | | | | [place] [address] | | | | | | [phone] | | | | | | | | +--------+ + + + + | 06/16/ | Office | Pulmonology | Eveline Jaffe | | | 2019 | Visit | | MD Nichole Carter | | | | | | [address] [place] | | | | | | [place] [address] | | | | | | [phone] | | | | | | | | +--------+ + + + + | 08/24/ | Office | Cardiology | Anisha Lopez DO | | | 2019 | Visit | | [address] | | | | | | [place] [facility] | | | | | | [address] | | | | | | | [...] x 2.1 cm (CT image 56, PET [id number]). Maximum | | | SUV is 6.26, [...] cm | | (CT image 56, PET [id number]). Maximum SUV is 6.26, consistent with the [...] + | MISCELLANEOUS LAB | | | [phone] | + +---------+ + + | MISCELANIOUS LAB | | | [phone] | + +---------+ + + documented in [...]
--- OUTSIDE RECORDS SUMMARY | ~2019-05-05 | XMS | Encounter Summary ---
Demographics + + + | Address | [address] | | | [place] [address] | + + + | Home Phone [...] [place] | | | | | [address] | | + + + + + Care Team Providers + +------+ + | Care Fruit Vendor Name | Role | Phone | + +------+ + | Davis Ivan MD | PCP | | + +------+ + Encounter Details +--------+ + + + + | Date | Type | Department | Care Team | Description | +--------+ + + + + | 07/12/ | Hospital | [facility] GENER[facility] IP | Conversion | Pain | | 2014 | Encounter | CONVERSION DEP [address] | Transaction, | | | | | [address] | Provider Unknown | | | | | [place] | [phone] | | | | | [address] | | | | | | [phone] | | | +--------+ + + + [...] | 2018 | Visit | | [address] | | | | | | [place] | | | | | | [place] [address] | | | | | | [phone] | | | | | | | | +--------+ + + + + | 06/08/ | Office | Physical Medicine | Rocky Santos, | | | 2019 | Visit | and Rehabilitation | MD Vare[address] | | | | | | [place] | | | | | | [address] | | | | | | | | +--------+ + + + + | 06/16/ | Appointment | Pulmonology | Eveline Jaffe | | | 2019 | | | MD Nichole [address] | | | | | | [address] [place] | | | | | | [place] [address] | | | | | | [phone] | | | | | | | | +--------+ + + + + | 06/16/ | Office | Pulmonology | Eveline Jaffe | | | 2019 | Visit | | MD Nichole Carter [address] | | | | | | [address] [place] | | | | | | [place] [address] | | | | | | [phone] | | | | | | | | +--------+ + + + + | 08/24/ | Office | Cardiology | Anisha Lopez DO | | | 2019 | Visit | | [address] | | | | | | [place] | | | | | | [address] | | | | | | | [...]
--- OUTSIDE RECORDS SUMMARY | ~2019-05-05 | XMS | Encounter Summary ---
Demographics + + + | Address | [address] | | | [place] [address] | + + + | Home Phone [...] [place] | | | | | [address] | | + + + + + Care Team Providers + +------+ + | Care Senior Construction Manager Name | Role | Phone | + +------+ + | Davis Ivan MD | PCP | | + +------+ + Encounter Details +--------+ + + + + | Date | Type | Department | Care Team | Description | +--------+ + + + + | 07/31/ | Documentati | [facility] | Hiral Dsouza, | | | 2014 | on | [facility] | [facility] [address] | | | | | [address] [place] | [place], [place] | | | | | [place] [address] | [address] | | | | | [phone] | | | +--------+ + + + [...] as of this encounter Progress Hiral Kemp [facility] - 07/31/2014 11:32 AM PSTFormatting of this note might be different fro m the original. IDT PATIENT MEDICATION/PROFILE REVIEW [facility] SERVICES [...] of Paclitaxel and carboplatin for locally advanced urc-nysbv-xozj lung cancer: a randomized phase II locally advanced multi-modality protocol. Pertinent Medical History: has a past medical history of COPD (chronic obstructive pulmona ry disease) (HCC); Spondylolisthesis of cervical region; Spinal stenosis; Osteoporosis; Depr ession; Pneumonia (2008); Rheumatoid arthritis(714.0) (HCC); Hyperlipidemia; Hypertension; H ypothyroidism; GERD (gastroesophageal reflux disease); Stroke (HCC) (2006); Stroke (HCC) (18 01); Squamous cell carcinoma of lung ([facility]) (07/2013); Sputum culture positive for Scopulariop sis species; Recurrent squamous cell carcinoma of lung ([facility]) (07/11/2014); MARCE (obstructive s leep apnea); and [...] | | | | | [place] [address] | | | | | | [phone] | | | | | | | | +--------+ + + + + | 06/08/ | Office | Physical Medicine | Rocky Santos, | | | 2019 | Visit | and Rehabilitation | MD [address] | | | | | | [place] | | | | | | [address] | | | | | | | | +--------+ + + + + | 06/16/ | Appointment | Pulmonology | Eveline Jaffe | | 2019 | | | MD Nichole Carter | | | | | | [address] | | | | | | [place] [address] | | | | | | [phone] | | | | | | | | +--------+ + + + + | 06/16/ | Office | Pulmonology | Eveline Jaffe | | | 2019 | Visit | | MD Nichole Carter | | | | | | [address] | | | | | | [place] [address] | | | | | | [phone] | | | | | | | [...]
--- OUTSIDE RECORDS SUMMARY | ~2019-05-05 | XMS | Encounter Summary ---
Demographics + + + | Address | [address] | | | [place] [address] | + + + | Home Phone [...] [place] | | | | | [address] | | + + + + + [...] Looney MD | | | | | [place], | | | | | | [place] [address] | | | | | | [phone] | | | +--------+--------+ + + + [...] | | | | | [place] [address] | | | | | | [phone] | | | | | | | | +--------+ + + + + | 06/08/ | Office | Physical Medicine | Rocky Santos, | | | 2019 | Visit | and Rehabilitation | MD [address]ole Landis | | | | | | [place] | | | | | | [address] | | | | | | | | +--------+ + + + + | 06/16/ | Appointment | Pulmonology | Eveline Jaffe | | 2019 | | | MD [address] | | | | | | [address] [place] | | | | | | [place] [address] | | | | | | [phone] | | | | | | | | +--------+ + + + + | 06/16/ | Office | Pulmonology | Eveline Jaffe | | | 2019 | Visit | | MD Raul [address] | | | | | | [address] [place] | | | | | | [place] [address] | | | | | | [phone] | | | | | | | | +--------+ + + + + | 08/24/ | Office | Cardiology | Anisha Lopez DO | | | 2019 | Visit | | [address] | | | | | | [place] | | | | | | [address] | | | | | | | | +--------+ + + + + documented as of this encounter Visit Diagnoses Not on filedocumented in this encounter"
--- OUTSIDE RECORDS SUMMARY | ~2019-05-05 | XMS | Encounter Summary ---
Demographics + + + | Address | [address] | | | [place] [address] | + + + | Home Phone [...] [place] | | | | | [address] | | + + + + + Care Team Providers + +------+ + | Care Counselor Dormitory Name | Role | Phone | + +------+ + PCP | Unavailable | + +------+ + Encounter Details +--------+ + + + + | Date | Type | Department | Care Team | Description | +--------+ + + + + | 01/13/ | Hospital | [facility] | Conversion | | | 2013 | Encounter | [facility] | Transaction, | | | | | [address] | Provider Unknown | | | | | [place], [place] | | | | | | [address] | (Fax) | | | | | [phone] | | | +--------+ + + + [...] | | | | | [place] [address] | | | | | | [phone] | | | | | | | | +--------+ + + + + | 06/08/ | Office | Physical Medicine | Rocky Santos, | | | 2019 | Visit | and Rehabilitation | MD [address] | | | | | | [place] | | | | | | [address] | | | | | | | | +--------+ + + + + | 06/16/ | Appointment | Pulmonology | Eveline Jaffe | | 2019 | | | MD [address] | | | | | | [address] | | | | | | [place] [address] | | | | | | [phone] | | | | | | | | +--------+ + + + + | 06/16/ | Office | Pulmonology | Eveline Jaffe | | | 2019 | Visit | | MD Raul [address] | | | | | | [place] | | | | | | [place] [address] | | | | | | [phone] | | | | | | | | +--------+ + + + + | 08/24/ | Office | Cardiology | Anisha Lopez DO | | | 2019 | Visit | | [address] | | | | | | [place] | | | | | | [address] | | | | | | | | +--------+ + + + + documented as of this encounter Visit Diagnoses Not on filedocumented in this encounter"
--- OUTSIDE RECORDS SUMMARY | ~2019-05-05 | XMS | Encounter Summary ---
Demographics + + + | Address | [address] | | | [place] [address] | + + + | Home Phone [...] [place] | | | | | [address] | | + + + + + Care Team Providers + +------+ + | Care Pin Ball Machine Mechanic Name | Role | Phone [...] + + | 04/25/ | Telephone | [facility] | Rocky Santos, | Results, Imaging | | 2019 | | PHYSIATRY [address] | MD [address] | | | | | [place], | [place] | | | | | [place] [address] | [address] | | | | | [phone] | | | +--------+ + + + [...] | | | | | [place] [address] | | | | | | [phone] | | | | | | | | +--------+ + + + + | 06/08/ | Office | Physical Medicine | Rocky Santos, | | | 2019 | Visit | and Rehabilitation | [address] | | | | | | [place] | | | | | | [address] | | | | | | | | +--------+ + + + + | 06/16/ | Appointment | Pulmonology | Eveline Jaffe | | 2019 | | | MD Nichole Carter [address] | | | | | | [address] | | | | | | [place] [address] | | | | | | [phone] | | | | | | | | +--------+ + + + + | 06/16/ | Office | Pulmonology | Eveline Jaffe | | | 2019 | Visit | | MD Nichole Carter | | | | | | [address] | | | | | | [place] [address] | | | | | | [phone] | | | | | | | | +--------+ + + + + | 08/24/ | Office | Cardiology | Anisha Lopez DO | | 2019 | Visit | | [address] | | | | | | [place] | | | | | | [address] | | | | | | | | +--------+ + + + + documented as of this encounter Visit Diagnoses Not on filedocumented in this encounter"
--- OUTSIDE RECORDS SUMMARY | ~2019-05-05 | XMS | Encounter Summary ---
Demographics + + + | Address | [address] | | | [place] [address] | + + + | Home Phone [...] [place] | | | | | [address] | | + + + + + Care Team Providers + +------+ + | Care Laboratory Director Name | Role | Phone | [...] | Bilateral | Offenstein, | [address] | | | | | leg edema | Ayana B, | [place], | | | | | Procedures | MD [address] | [place] | | | | | ECHO | [address] | [address] | | | | | Complete | [place], | Phone: | | | | | | [place] [address] | [phone] | | | | | | | Fax: | | | | | | | [phone] | +--------+--------+ + + + + Diagnostic/Screening [...] | | Pneumonia, | Offenstein, | [address] | | | | | unspecified | Ayana B, | [place], | | | | | organism | MD [address] | [place] [address] | | | | | Malignant | [address] | Phone: | | | | | neoplasm of | [place], | [phone] | | | | | unspecified | [place] [id number] | Fax: | | | | | part of | | [phone] | | | | | right | [...] + + | 11/06/ | Office | [facility] | [place]enstein, | Chronic obstructive | | 2016 | Visit | PULMONARY [address] | Ayana Looney MD | bronchitis with | | | | [address] [place], | | pulmonary emphysema | | | | [place] [address] | | (HCC) (Primary Dx); | | | | [phone] | | Recurrent pneumonia; | | | | | | Oropharyngeal | | | | | | dysphagia; Bilateral | | | | | | leg edema; | | | | | | Recurrent squamous | | | | | | cell carcinoma of | | | | | | lung, right ([facility]) | +--------+---------+ + + + [...] encounter Progress Notes Ayana Taylor MD - 11/07/2015 1:11 PM PDTFormatting [...] w ent in to the ER at [facility] and was admitted. They had intended to keep her, but appar ently then ended up transferring her to [facility]. She was 100.8 on arrival in the emergenc y room at [facility]. She was treated with Zosyn and she [...] obstructive pulmonary disease) ([facility]) on albuterol Spondylolisthesis of cervical region Spinal stenosis has tried cortisone injections Osteoporosis Depression Pneumonia 2009 hospitalized 5 days Rheumatoid arthritis(714.0) ([facility]) 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 Sierra Tunneled venous port placement N/A 07/28/2014 Procedure: Port Placement; Surgeon: Chalino Chiu MD; Location: [facility] OR Colonoscopy 06/2014 Endoscopy Hand arthroplasty Left 03/20/2015 Procedure: Left 1st C.M.C. 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 Blood Pressure Monitoring (BLOOD PRESSURE CUFF) [facility] Please provide patient with approp riate sized [...] made to ensure accuracy; however, inadvertent computerized loan documentation specialist errors may be pre sent. documented in t his encounter Plan of Treatment +--------+ + + + + | Date | Type | Specialty | Care Team | Description | +--------+ + + + + | 05/30/ | Office | Rheumatology | Santosh Sumner, | | | 2018 | Visit | | [address] | | | | | | [facility] | | | | | | [place] [address] | | | | | | [phone] | | | | | | | | +--------+ + + + + | 06/08/ | Office | Physical Medicine | Rocky Santos, | | | 2019 | Visit | and Rehabilitation | [address] | | | | | | [place] | | | | | | [address] | | | | | | | | +--------+ + + + + | 06/16/ | Appointment | Pulmonology | Eveline Jaffe | | | 2019 | | | MD Nichole Carter [address] | | | | | | [address] | | | | | | [place] [address] | | | | | | [phone] | | | | | | | | +--------+ + + + + | 06/16/ | Office | Pulmonology | Eveline Jaffe | | | 2019 | Visit | | MD Nichole Carter | | | | | | [address] [place] | | | | | | [place] [address] | | | | | | [phone] | | | | | | | | +--------+ + + + + | 08/24/ | Office | Cardiology | Anisha Lopez DO | | | 2019 | Visit | | [address] | | | | | | [place] | | | | | | [address] | | | | | | | [...] COMPARISON: ESOPHAGRAM SEPTEMBER 2014 TECHNIQUE: In the [facility] | | upright position, the [...] + | [address] | [address] | [place] | [phone] | | [facility] | | [address] | | | - IMAGING | | | | + + + + + ECHO Complete (11/30/2015 10:34 AM PDT) + + | Specimen | + + | | + + + +- + | Narrative | Performed At | + +- + | Transthoracic | [facility] | | Echocardiography Report (TTE) Demographics Patient Name GRISELDA | [facility] | | [facility] Room Number YOLANDA [facility] | | Number [id number] Date of Study 11/30/2015 | - IMAGING | | Visit Number [id number] | | | Referring Physician OUSMANE LANG Number | | | B Date of | | | 1945 Luggage Liner HOLLEY ESTUARDO | | | | | | RDS Age 70 year(s) | | | Interpreting NOMAN HAIDER | | | Manager Behavioral LUIS | | | | | | [...] Room Number YOLANDA | | Patient Number [id number] Date of Study 11/30/2015 Visit Number | | [id number] Referring Physician OUSMANE LANG | | Number B Date of 1945 | | Luggage Liner HOLLEY MARTE | | RDS Age 70 year(s) Interpreting NOMAN HAIDER | | Manager Behavioral LUIS | | LUIS TINEO MD Gender [...] [address] | [place] | [phone] | | [facility] | | [address] | | | - IMAGING | | [...] ST. | [address] | [place], [place] | [phone] | | [facility] | | [address] | | | - IMAGING | | [...]
--- OUTSIDE RECORDS SUMMARY | ~2019-05-05 | XMS | Encounter Summary ---
Demographics + + + | Address | [address] | | | [place] [address] | + + + | Home Phone [...] [place] | | | | | [address] | | + + + + + Care Team Providers + +------+ + | Care Recording Studio Intern Name | Role | Phone | + +------+ + PCP | Unavailable | + +------+ + Encounter Details +--------+ + + + + | Date | Type | Department | Care Team | Description | +--------+ + + + + | 01/13/ | Hospital | [facility] | Conversion | | | 2013 | Encounter | [facility] | Transaction, | | | | | [address] | Provider Unknown | | | | | [place], [place] | | | | | | [address] | (Fax) | | | | | [phone] | | | +--------+ + + + [...] | | | | | [place] [address] | | | | | | [phone] | | | | | | | | +--------+ + + + + | 06/08/ | Office | Physical Medicine | Rocky Santos, | | | 2019 | Visit | and Rehabilitation | MD [address] | | | | | | [place] | | | | | | [address] | | | | | | | | +--------+ + + + + | 06/16/ | Appointment | Pulmonology | Eveline Jaffe | | 2019 | | | MD [address] | | | | | | [address] | | | | | | [place] [address] | | | | | | [phone] | | | | | | | | +--------+ + + + + | 06/16/ | Office | Pulmonology | Eveline Jaffe | | | 2019 | Visit | | MD Raul [address] | | | | | | [place] | | | | | | [place] [address] | | | | | | [phone] | | | | | | | | +--------+ + + + + | 08/24/ | Office | Cardiology | Anisha Lopez DO | | | 2019 | Visit | | [address] | | | | | | [place] | | | | | | [address] | | | | | | | | +--------+ + + + + documented as of this encounter Visit Diagnoses Not on filedocumented in this encounter"
--- OUTSIDE RECORDS SUMMARY | ~2019-05-05 | XMS | Encounter Summary ---
Demographics + + + | Address | [address] | | | [place] [address] | + + + | Home Phone [...] [place] | | | | | [address] | | + + + + + Care Team Providers + +------+ + | Care Livestock Exhibitor Name | Role | Phone | + +------+ + | Davis Giblert MD | PCP | | + +------+ + Encounter Details +--------+ + + + + | Date | Type | Department | Care Team | Description | +--------+ + + + + | 04/06/ | Hospital | [facility] | Silviano Cabrera MD | | | 2012 - | Encounter | [facility] [address] | [address] | | | | | [place] | [place], | | | 04/09/ | | [place], [place] | [place] [address] | | | 2012 | | [address] | [phone] | | | | | [phone] | | | +--------+ + + + [...] 04/09/1350 Date of Service: 04/09/13847 Status: Signed Solar Installation Supervisor: RITA Rubio (Advanced Registered Nurse Practitioner) [facility] Service: Orthopedic Surgery Brief Post-op Discharge [...] 1331 Date of Service: 04/09/131329 Status: Signed Solar Installation Supervisor: Matilde Turner RN (Registered Nurse) Discharge teaching [...] (none) Author Type: Physical Therapist Filed: 04/09/13 7130 Date of Service: 04/09/13 1023 Status: Signed Solar Installation Supervisor: Tamiko Murphy PT (Physical Therapist) 04/09/13 1023 [...] 154 Date of Service: 04/08/131540 Status: Signed Solar Installation Supervisor: BLAIR Chang (Occupational Therapist) 04/08/13 0927 Precautions [...] stated understanding . Prior Function Level of Cass Modified independent with ADLs;Assist with IADLs;Modified independent [...] Notes by Nathalie Yang PT at 04/08/13 5075 Author: Nathalie Yang PT Service: (none) Author Type: Physical Therapist Filed: 04/08/13 5181 Date of Service: 04/08/13 8960 Status: Signed Solar Installation Supervisor: Nathalie Yang PT (Physical Therapist) 04/08/13 0125 PT Last Visit PT Received On 04/08/13 [...] Denver Arias PTA Service: (none) Author Type: Tin Flipper Filed: 04/08/13 1157 Date of Service: 04/08/13 1156 Status: Signed Solar Installation Supervisor: Denver Arias PTA (Tin Flipper) 04/08/13 1156 PT Last Visit PT Received [...] (none) Author Type: Physical Therapist Filed: 04/07/13 8797 Date of Service: 04/07/13 1318 Status: Signed Solar Installation Supervisor: Jenny Vila PT (Physical Therapist) 04/07/13 1318 [...] she feels more security given limitations of Bath collar; pt left sitting in high back [...] Author: CLAIRE Lee Service: (none) Author Type: Head Up Operator Helper Filed: 04/07/13905 Date of Service: 04/07/13903 Status: Signed Solar Installation Supervisor: CLAIRE Lee (Head Up Operator Helper) CM met with pt for discharge planning. [...] a 67 y.o., female Patient's PCP is: ARVINDRA GILBERT Patient's insurance: [employer] Coverage concerns: [...] Date of Service: 04/06/13 1522 Status: Signed Solar Installation Supervisor: Jenny Vila PT (Physical Therapist) 04/06/13 1522 [...] pt as needed. Prior Function Level of Cass Modified independent with functional mobility;Assist with ADLs;Assist [...] Notes by Martha Dhaliwal RPH at 04/06/13 4209 Author: Martha Dhaliwal RPH Service: (none) Author Type: Pharmacist Filed: 04/06/13 8156 Date of Service: 04/06/131455 Status: Signed Solar Installation Supervisor: Martha Dhaliwal RPH (Pharmacist) Renal Dosing Monitoring: [...] | | | | | [place] [address] | | | | | | [phone] | | | | | | | | +--------+ + + + + | 06/08/ | Office | Physical Medicine | Rocky Santos, | | | 2019 | Visit | and Rehabilitation | [address] | | | | | | [place] | | | | | | [address] | | | | | | | | +--------+ + + + + | 06/16/ | Appointment | Pulmonology | Eveline Jaffe | | | 2019 | | | MD [address] | | | | | | [address] | | | | | | [place], [place] [address] | | | | | | [phone] | | | | | | | | +--------+ + + + + | 06/16/ | Office | Pulmonology | Eveline Jaffe | | | 2019 | Visit | | MD [address]ole [address] | | | | | | [address] [place] | | | | | | [place] [address] | | | | | | [phone] | | | | | | | | +--------+ + + + + | 08/24/ | Office | Cardiology | Anisha Lopez DO | | | 2019 | Visit | | [address] | | | | | | [place] | | | | | | [address] | | | | | | | [...]
--- OUTSIDE RECORDS SUMMARY | ~2019-05-05 | XMS | Encounter Summary ---
Demographics + + + | Address | [address] | | | [place] [address] | + + + | Home Phone [...] [place] | | | | | [address] | | + + + + + Care Team Providers + +------+ + | Care Water Use Inspector Name | Role | Phone | [...] + + | 09/06/ | Telephone | [facility] | Jimmy Banegas DO | Other | | 2014 | | [facility] | [address] [facility] | | | | | [facility] CL[facility] [address] | [place], [place] | | | | | [address] [facility] | [address] | | | | | [place] [address] | | | | | | [phone] | | | +--------+ + + + [...] | | | | | | [facility] | | | | | | [place] [address] | | | | | | [phone] | | | | | | | | +--------+ + + + + | 06/08/ | Office | Physical Medicine | Rocky Santos, | | | 2019 | Visit | and Rehabilitation | [address] | | | | | | [place] | | | | | | [address] | | | | | | | | +--------+ + + + + | 06/16/ | Appointment | Pulmonology | Eveline Jaffe | | | 2019 | | | MD [address] | | | | | | [address] [place] | | | | | | [place] [address] | | | | | | [phone] | | | | | | | | +--------+ + + + + | 06/16/ | Office | Pulmonology | Eveline Jaffe | | | 2019 | Visit | | MD Nichole Carter | | | | | | [address] [place] | | | | | | [place] [address] | | | | | | [phone] | | | | | | | | +--------+ + + + + | 08/24/ | Office | Cardiology | Anisha Lopez DO | | | 2019 | Visit | | [address] | | | | | | [place] | | | | | | [address] | | | | | | | | +--------+ + + + + documented as of this encounter Visit Diagnoses Not on filedocumented in this encounter"
--- OUTSIDE RECORDS SUMMARY | ~2019-05-05 | XMS | Encounter Summary ---
Demographics + + + | Address | [address] | | | [place] [address] | + + + | Home Phone [...] [place] | | | | | [address] | | + + + + + Care Team Providers + +------+ + | Care Director Data Analytics Name | Role | Phone | + [...] | | | | | | [place] [address] | | | | | | [phone] | | | +--------+ + + + [...] | | | | | [place] [address] | | | | | | [phone] | | | | | | | | +--------+ + + + + | 06/08/ | Office | Physical Medicine | Rocky Santos, | | | 2019 | Visit | and Rehabilitation | [address] | | | | | | [place] | | | | | | [address] | | | | | | | | +--------+ + + + + | 06/16/ | Appointment | Pulmonology | Eveline Jaffe | | 2019 | | | MD [address] | | | | | | [address] [place] | | | | | | [place] [address] | | | | | | [phone] | | | | | | | | +--------+ + + + + | 06/16/ | Office | Pulmonology | Eveline Jaffe | | | 2019 | Visit | | MD [address] | | | | | | [address] | | | | | | [place] [address] | | | | | | [phone] | | | | | | | | +--------+ + + + + | 08/24/ | Office | Cardiology | Anisha Lopez DO | | | 2019 | Visit | | [address] | | | | | | [place] | | | | | | [address] | | | | | | | | +--------+ + + + + documented as of this encounter Visit Diagnoses + + | Diagnosis | + + | Obstructive sleep apnea (adult) (pediatric) - Primary | + + documented in this encounter"
--- OUTSIDE RECORDS SUMMARY | ~2019-05-05 | XMS | Encounter Summary ---
Demographics + + + | Address | [address] | | | [place] [address] | + + + | Home Phone [...] [place] | | | | | [address] | | + + + + + Care Team Providers + +------+ + | Care Warehouse Receiving Clerk Name | Role | Phone | [...] | Services | Therapy | Bilateral | [place] | [facility] | | | Required | | shoulder | Matthias, | [address] | | | | | pain, | MD [address] | | | | | unspecified | [address] | [place], [place] | | | | | chronicity | [place], | [address] | | | | | | [place] | Phone: | | | | | | [address] | [phone] | | | | | | Phone: | Fax: | | | | | | [phone] | [phone] | | | | | | Fax: | | | | | | | [phone] | | +--------+ + + + + [...] | | | | shoulder | [place] [address] | [place] | | | | | | Phone: | [address] | | | | | | [phone] | Phone: | | | | | | Fax: | [phone] | | | | | | [phone] | Fax: | | | | | | | [phone] | + +--------+ + + + + Encounter Details +--------+---------+ + + + | Date | Type | Department | Care Team | Description | +--------+---------+ + + + | 11/01/ | Office | [facility] | Rodney Worthy | Bilateral shoulder | | 2019 | Visit | ORTHOPEDIC SURGERY | MD [address] | pain, unspecified | | | | [address] [facility] | [facility] | chronicity (Primary | | | | [place], [place] | [facility] [address] | Dx); Impingement | | | | [address] | [phone] | syndrome of left | | | | [phone] | | shoulder; | | | | [...] Medicine To relieve pain and inflammation, try jvzu-dss-vouddrd pain relievers, such as acetaminophe n or [...] benefits of this therapy. Date Last Reviewed: 09/29/201719998736-0933 [employer]. [address] [place] [address], [place] [address]. All righ ts reserved. This information is not intended as a substitute for professional medical care. Always follow your healthcare professional's instructions. documented in this encounter Progress Notes Rodney Worthy MD - 11/01/2018 11:00 AM PDTFormatting of this note might be dif ferent from the original. [facility] HISTORY AND PHYSICAL EXAMINATION [...] her by the emergenc y room at [facility] in [place]. She reports that using her shoulder makes [...] disease Arthritis COPD (chronic obstructive pulmonary disease) ([facility]) on albuterol Depression HONG (dyspnea on exertion) Full dentures upper & lower GERD (gastroesophageal reflux disease) Hyperlipidemia on simvastatin Hypertension on clonidine and lisinopril Hypothyroidism Obesity MARCE (obstructive sleep apnea) AHI 11.6 no CPAP Osteoporosis Pneumonia 2008 hospitalized 5 days Recurrent squamous cell carcinoma of lung ([facility]) 07/11/[address] and RUL nodule Rheumatoid arthritis(714.0) [facility] Spinal stenosis has tried cortisone injections Spondylolisthesis of cervical region Sputum culture positive for Scopulariopsis species Squamous cell carcinoma of lung ([facility]) 07/2013 right lower lobe Stroke ([facility]) 2006 Stroke ([facility]) 2007 Upper GI bleed 06/[address] [facility] Past Surgical History: Procedure Laterality Date BACK SURGERY 03/2014 BLADDER SUSPENSION BRONCHOSCOPY 07/11/2014 EBUS with right hilar LN biopsy, [facility] Dr. 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 I appreciate [...] | | | | | [place] [address] | | | | | | [phone] | | | | | | | | +--------+ + + + + | 06/08/ | Office | Physical Medicine | Rocky Santos, | | | 2019 | Visit | and Rehabilitation | [address] | | | | | | [place] | | | | | | [address] | | | | | | | | +--------+ + + + + | 06/16/ | Appointment | Pulmonology | Eveline Jaffe | | | 2019 | | | MD [address] | | | | | | [address] [place] | | | | | | [place] [address] | | | | | | [phone] | | | | | | | | +--------+ + + + + | 06/16/ | Office | Pulmonology | Eveline Jaffe | | | 2019 | Visit | | MD [address] | | | | | | [address] [place] | | | | | | [place] [address] | | | | | | [phone] | | | | | | | | +--------+ + + + + | 08/24/ | Office | Cardiology | Anisha Lopez DO | | | 2019 | Visit | | [address] | | | | | | [place] | | | | | | [address] | | | | | | | [...]
--- OUTSIDE RECORDS SUMMARY | ~2019-05-05 | XMS | Encounter Summary ---
Demographics + + + | Address | [address] | | | [place] [address] | + + + | Home Phone [...] [place] | | | | | [address] | | + + + + + Care Team Providers + +------+ + | Care Mill Machinist Name | Role | Phone | [...] | 03/30/ | Office | [facility] | Offenstein, | Pulmonary nodule | | 2012 | Visit | PULMONARY [address] | Ayana Looney MD | (Primary Dx); COPD | | | | [place], | | (chronic obstructive | | | | [place] [address] | | pulmonary disease) | | | | [phone] | | (HCC); Rheumatoid | | | | | | arthritis ([facility]) | +--------+---------+ + + + Social [...] MD [place] Garcia Pulmonary and Critical Care [facility] [address] [place], [address] Referring Provider: [place] Ivan * HPI Thea [...] She believes she had one yearly at [facility], even fairly recently. They do have symptoms [...] own cooking and cleaning. She has a waste minimization technician at home. 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 Social History Main Topics Smoking status: Former Smoker -- 1.0 packs/day for 50 years Types: Cigarettes Quit date: 08/21/2012 Smokeless tobacco: None Alcohol Use: No Drug Use: No marijuana in the remote past Sexually Active: None Other Topics Concern None Social History Narrative Lives: in [place] With: aloneGrew up: in [place] Has [...] | | | | | | [facility] | | | | | | [place] [address] | | | | | | [phone] | | | | | | | | +--------+ + + + + | 06/08/ | Office | Physical Medicine | Rocky Santos, | | | 2019 | Visit | and Rehabilitation | [address] | | | | | | [place] | | | | | | [address] | | | | | | | | +--------+ + + + + | 06/16/ | Appointment | Pulmonology | Eveline Jaffe | | | 2019 | | | MD [address] | | | | | | [address] [place] | | | | | | [place] [address] | | | | | | [phone] | | | | | | | | +--------+ + + + + | 06/16/ | Office | Pulmonology | Eveline Jaffe | | | 2019 | Visit | | MD Raul [address] | | | | | | [address] [place] | | | | | | [place] [address] | | | | | | [phone] | | | | | | | | +--------+ + + + + | 08/24/ | Office | Cardiology | Anisha Lopez DO | | | 2019 | Visit | | [address] | | | | | | [place] | | | | | | [address] | | | | | | | [...] | | [facility] | | | [facility] | | | - LABORATORY | + + + + + + + + | Performing | Address | City/State/Zipcode | Phone Number | | Organization | | | | + + + + + | [facility] | [address] | [place] | [phone] | | [facility] | | [address] | | | - LABORATORY | | | | + + + + + | [facility] | [address] | [place] | | | [...] by: | | | | | | [facility], | | | | | | [address] | | | | | | [place] | | | | | | [address] | | | | + + + + + + + + | Specimen | + + | Blood specimen | | (specimen) | + + + + + + + | Performing | Address | City/State/[facility] | Phone Number | | Organization | | | | + + + + + | [facility] | [address] | [place] | [phone] | | [facility] | | [address] | | | - LABORATORY | | | | + + + + + | [facility] | [address] | [place] | | | [facility] | | [address] | | | - LABORATORY | | [...] ID | Reference range: NONE | | [facility] | | | | DETECTEDINTERPRETIVE [...] 500 | | | | | | [facility] | | | | | | [facility], [id number] CLIA: | | | | | | [id number] | | | | + + + + + + + + | Specimen | + + | Blood specimen | | (specimen) | + + + + + + + | Performing | Address | City/State/[facility] | Phone Number | | Organization | | | | + + + + + | [facility] | [address] | [place] | [phone] | | [facility] | | [address] | | | - LABORATORY | | | | + + + + + | [facility] | [address] | [place] | | | [facility] | | [address] | | | - LABORATORY | | [...] 500 | | | | | | [facility] | | | | | | [facility], [id number] CLIA: | | | | | | [id number] | | | | + + + + + + + + | Specimen | + + | Blood specimen | | (specimen) | + + + + + + + | Performing | Address | City/State/Zipcode | Phone Number | | Organization | | | | + + + + + | [facility] | [address] | [place], [place] | [phone] | | [facility] | | [address] | | | - LABORATORY | | | | + + + + + | [facility] | [address] | [place], [place] | | | [facility] | | [address] | | | - LABORATORY | | [...] | | | | | | Diagnostics, [address] | | | | | | Corporate | | | | | | [place] [address] | | | | | | CLIA: [id number] | | | | + + + [...] [address] | [place] | [phone] | | [facility] | | [address] | | | - LABORATORY | | | | + + + + + | [facility] | [address] | [place] | | | [facility] | | [address] | | | - LABORATORY | | [...]
--- OUTSIDE RECORDS SUMMARY | ~2019-05-05 | XMS | Encounter Summary ---
Demographics + + + | Address | [address] | | | [place] [address] | + + + | Home Phone [...] [place] | | | | | [address] | | + + + + + Care Team Providers + +------+ + | Care Fluid Designer Name | Role | Phone | [...] atrial | [address] | [address] | | | | | fibrillation | [address] | [place], | | | | | with rapid | [place], | [place] | | | | | ventricular | [place] [address] | [address] | | | | | response | Phone: | Phone: | | | | | ([facility]) Heart | [phone] | [phone] | | | | | | Fax: | Fax: | | | | | palpitations | [phone] | [phone] | | | | | Atrial | | | | | | | fibrillation | | | | | | | with RVR | | | | | | | ([facility]) | | | +--------+ + + + [...] | | | | Trigger | | [place] [address] | | | | | finger, left | | Phone: | | | | | ring finger | | [phone] | | | | | Trigger | | Fax: | | | | | middle | | [phone] | | | | | finger of | | | | | | | left hand | | | | | | | Procedures | | | | | | | [facility] | | | | | | [...] + + | 09/28/ | Emergency | [facility] | Jf Coleman, | Paroxysmal atrial | | 2019 | | MED CTR EMERGENCY | MD [address] | fibrillation with | | | | CENTER [address] | [place], [place] | rapid ventricular | | | | [place], [place] | [address] | response ([facility]) | | | | [address] | | (Primary Dx); Heart | | | | [phone] | | palpitations; Atrial | | | | | | fibrillation with | | | | | | RVR ([facility]) | +--------+ + + + + Social [...] Everywhere.Living with Atr ial Fibrillation: Preventing Stroke (Portuguese)documented in this encounter Medications at Time of [...] | 2018 | Visit | | [address] | | | | | | [facility] | | | | | | [place] [address] | | | | | | [phone] | | | | | | | | +--------+ + + + + | 06/08/ | Office | Physical Medicine | Rocky Santos, | | | 2019 | Visit | and Rehabilitation | MD [address] | | | | | | [place] | | | | | | [address] | | | | | | | | +--------+ + + + + | 06/16/ | Appointment | Pulmonology | Eveline Jaffe | | | 2019 | | | MD [address] | | | | | | [address] [place] | | | | | | [place] [address] | | | | | | [phone] | | | | | | | | +--------+ + + + + | 06/16/ | Office | Pulmonology | Eveline Jaffe | | | 2019 | Visit | | MD [address] | | | | | | [address] [place] | | | | | | [place] [address] | | | | | | [phone] | | | | | | | | +--------+ + + + + | 08/24/ | Office | Cardiology | Anisha Lopez DO | | | 2020 | Visit | | [address] | | | | | | [place] | | | | | | [address] | | | | | | | [...] | | | | DIANA SMART MD ([id number]) | | | | | | on [...] + | [facility] | [address] | [place] | [phone] | | [facility] | | [address] | | | - LABORATORY | | [...] + | [facility] | [address] | [place] | [phone] | | [facility] | | [address] | | | - LABORATORY | | [...] | | | | | | [employer] | | | | | [...] + | [facility] | [address] | [place] | [phone] | | [facility] | | [address] | | | - LABORATORY | | [...] | mL/min/1.73m2 | [facility] | | | HONDURAN | RATE,ESTIMATED | | MEDICAL | | | | mL/min/1.00k1Dejs than | | CENTER - | | [...] | 9.7 | 8.7 - 10.4 | [facility] | | | | | mg/dL | [facility] | | | | | | MEDICAL | | | | | | CENTER - | | | | | | LABORATORY | | + + + + + + | Albumin | 4.1 | 3.2 - 4.8 g/dL | [facility] | | | | | | ST. [...] [address] | [place] | [phone] | | [facility] | | [address] | | | - LABORATORY | | [...] + | [facility] | [address] | [place] | [phone] | | [facility] | | [address] | | | - LABORATORY | | [...] | | | | DIANA SMART MD ([id number]) | | | | | | on [...]
--- OUTSIDE RECORDS SUMMARY | ~2019-05-05 | XMS | Encounter Summary ---
Demographics + + + | Address | [address] | | | [place] [address] | + + + | Home Phone [...] [place] | | | | | [address] | | + + + + + Care Team Providers + +------+ + | Care Air Hoist Operator Name | Role | Phone | [...] | | | | | [address] | [place] [facility] | | | | | [place], [place] | [place] [address] | | | | | [address] | [phone] | | | | | [phone] | | | +--------+---------+ + + + [...] the port is placed in the arm 0219-[address] [employer] [place] [address], [place] [address]. All righ ts reserved. This information is [...] may interact with prescription medicines or other xgnj-juw-rutzjjw (OTC) drugs. The FDA recommends reading OTC medication labels careful ly to clearly understand the list of active ingredients, directions, and any precautions to help avoid taking too muchacetaminophen. If you have questions, ask your pharmacist or a [facility] care provider. Managing Nausea Some people have [...] or skin changes (rash, itching, or hives). 5925-1658 [employer]. [address] [place] [address], [place] [address]. All righ ts reserved. This information is [...] | | | | | [place] [address] | | | | | | [phone] | | | | | | | | +--------+ + + + + | 06/08/ | Office | Physical Medicine | Rocky Santos, | | | 2019 | Visit | and Rehabilitation | [address] | | | | | | [place] | | | | | | [address] | | | | | | | | +--------+ + + + + | 06/16/ | Appointment | Pulmonology | Eveline Jaffe | | | 2019 | | | MD [address] | | | | | | [address] [place] | | | | | | [place] [address] | | | | | | [phone] | | | | | | | | +--------+ + + + + | 06/16/ | Office | Pulmonology | Evleine Jaffe | | | 2019 | Visit | | MD [address] | | | | | | [address] [place] | | | | | | [place] [address] | | | | | | [phone] | | | | | | | | +--------+ + + + + | 08/24/ | Office | Cardiology | Anisha Lopez DO | | | 2019 | Visit | | [address] | | | | | | [place] | | | | | | [address] | | | | | | | [...]
--- OUTSIDE RECORDS SUMMARY | ~2019-05-05 | XMS | Encounter Summary ---
Demographics + + + | Address | [address] | | | [place] [address] | + + + | Home Phone [...] [place] | | | | | [address] | | + + + + + Care Team Providers + +------+ + | Care Analytical Data Miner Name | Role | Phone | + [...] + + | 09/01/ | Office | [facility] | Gurmeet Vargas | Tachypnea (Primary | | 2019 | Visit | PULMONARY [address] | MD [address] | Dx); Pneumonia of | | | | [place], | [place] | right lower lobe due | | | | [place] [address] | [place] [address] | to infectious | | | | [phone] | [phone] | organism (HCC); | | | | [...] Gurmeet Vargas MD - 09/01/2018 3:20 PM KLI14-fweo-bsx ex-smoker being admitted from pulmonary clinic with tachypnea from right lower lobe pneumonia, immunosuppression with steroid and methotrexate, incidental pulmonary embolism on warfarin, and metastatic lung ca ncer being controlled with afatinib Today's visit was scheduled longer ago. We had no recent records, so requested Dr. Dennis ortega notes from [place]. Most recent was July, and there was a excellent summary of h er treatment to date. A CT scan apparently showed pulmonary embolism, and the stump of the right lower lobe, so she was begun on anticoagulation and transition to warfarin. However, she became ill in July, and also had bleeding, and was admitted for August 17 to [facility] at [facility] in [place]. We've requested those notes and they were [...] I learned from the patient and her opthalmic tech Mirza and the discharge summary from August [...] she was admitted August 17, 2018 to [facility] in [place]. In my view, the infiltrate seen today in the right lower lung field could be consistent wit h PCP, which would also be consistent with the raising and lowering of steroid doses. She also was producing sputum and so we collected expectorated sputum and sent it to the [facility] for PCP immunofluorescence, Gram stain, and [...] spent 45 minutes, at least half in yuwa-ph-leov counseling. Word processing was used and I [...] | | | | | [place] [address] | | | | | | [phone] | | | | | | | | +--------+ + + + + | 06/08/ | Office | Physical Medicine | Rocky Santos, | | | 2019 | Visit | and Rehabilitation | [address] | | | | | | [place] | | | | | | [address] | | | | | | | | +--------+ + + + + | 06/16/ | Appointment | Pulmonology | Eveline Jaffe | | | 2019 | | | MD [address] | | | | | | [address] [place] | | | | | | [place] [address] | | | | | | [phone] | | | | | | | | +--------+ + + + + | 06/16/ | Office | Pulmonology | Eveline Jaffe | | | 2019 | Visit | | MD [address] | | | | | | [address] [place] | | | | | | [place] [address] | | | | | | [phone] | | | | | | | | +--------+ + + + + | 08/24/ | Office | Cardiology | Anisha Lopez DO | | | 2019 | Visit | | [address] | | | | | | [place] | | | | | | [address] | | | | | | | [...] + +---------+ + + Pneumocystis Jiroveci Ag [facility] (09/01/2018 4:08 PM PDT) + + + [...] | Performed at: 01 - [facility] [address], | REFERENCE LAB | | [place], [place] [address] Hand Buffing Wheel Former: Kodak Collins MD, Phone: | YAHIR VALDEZ | | [phone] | | + + + + + + + + | Performing | Address | City/State/Zipcode | Phone Number | | Organization | | | | + + + + + | REFERENCE LAB | [address] | [place] [address] | [phone] | | [facility] | [facility] | | | + + + + [...] [address] | [place] | [phone] | | [facility] | | [address] | | | - LABORATORY | | [...]
--- OUTSIDE RECORDS SUMMARY | ~2019-05-05 | XMS | Encounter Summary ---
Demographics + + + | Address | [address] | | | [place] [address] | + + + | Home Phone [...] [place] | | | | | [address] | | + + + + + Care Team Providers + +------+ + | Care Gunstock Repairer Name | Role | Phone | [...] W | | | | | | [place], | | | | | | [place] [address] | | | | | | [phone] | | | +--------+ + + + [...] Jacques OT - 08/07/2014 1:[facility] [address] [place] [address] Oncology Rehab Screening Date: 08/07/2014 Patient Information [...] interest in participating in therapy services in [facility] [address], however, it is this therapist's opinion at [...] | | | | | [place] [address] | | | | | | [phone] | | | | | | | | +--------+ + + + + | 06/08/ | Office | Physical Medicine | Rocky Santos, | | | 2019 | Visit | and Rehabilitation | [address] | | | | | | [place] | | | | | | [address] | | | | | | | | +--------+ + + + + | 06/16/ | Appointment | Pulmonology | Eveline Jaffe | | 2019 | | | MD [address] | | | | | | [address] | | | | | | [place] [address] | | | | | | [phone] | | | | | | | | +--------+ + + + + | 06/16/ | Office | Pulmonology | Eveline Jaffe | | | 2019 | Visit | | MD Raul [address] | | | | | | [address] | | | | | | [place] [address] | | | | | | [phone] | | | | | | | | +--------+ + + + + | 08/24/ | Office | Cardiology | Anisha Lopez DO | | | 2019 | Visit | | [address] | | | | | | [place] | | | | | | [address] | | | | | | | | +--------+ + + + + documented as of this encounter Visit Diagnoses Not on filedocumented in this encounter"
--- OUTSIDE RECORDS SUMMARY | ~2019-05-05 | XMS | Encounter Summary ---
Demographics + + + | Address | [address] | | | [place] [address] | + + + | Home Phone [...] [place] | | | | | [address] | | + + + + + Care Team Providers + +------+ + | Care Laboratory Assistant Name | Role | Phone | [...] | | | | IMAGING | Edmond [address] | | | | | [phone] | [place] [address] | | +--------+ + + + + [...] | | | | | [place] [address] | | | | | | [phone] | | | | | | | | +--------+ + + + + | 06/08/ | Office | Physical Medicine | Rocky Santos | | | 2019 | Visit | and Rehabilitation | MD [address] | | | | | | [place] | | | | | | [address] | | | | | | | | +--------+ + + + + | 06/16/ | Appointment | Pulmonology | Eveline Jaffe | | 2019 | | | MD [address] | | | | | | [address] | | | | | | [place] [address] | | | | | | [phone] | | | | | | | | +--------+ + + + + | 06/16/ | Office | Pulmonology | Eveline Jaffe | | | 2019 | Visit | | MD Raul [address] | | | | | | [address] | | | | | | [place] [address] | | | | | | [phone] | | | | | | | | +--------+ + + + + | 08/24/ | Office | Cardiology | Anisha Lopez DO | | | 2019 | Visit | | [address] | | | | | | [place] | | | | | | [address] | | | | | | | [...]
--- OUTSIDE RECORDS SUMMARY | ~2019-05-05 | XMS | Encounter Summary ---
Demographics + + + | Address | [address] | | | [place] [address] | + + + | Home Phone [...] [place] | | | | | [address] | | + + + + + Care Team Providers + +------+ + | Care Pipe And Boiler Covers Supervisor Name | Role | Phone | [...] [place] | | | | | [phone] | [place] [address] | | +--------+ + + + + [...] | | | | | | [place] [address] | | | | | | [phone] | | | | | | | | +--------+ + + + + | 06/08/ | Office | Physical Medicine | Rocky Santos, | | | 2019 | Visit | and Rehabilitation | MD [address] | | | | | | [place] | | | | | | [address] | | | | | | | | +--------+ + + + + | 06/16/ | Appointment | Pulmonology | Eveline Jaffe | | 2019 | | | MD [address] | | | | | | [address] | | | | | | [place] [address] | | | | | | [phone] | | | | | | | | +--------+ + + + + | 06/16/ | Office | Pulmonology | Eveline Jaffe | | | 2019 | Visit | | MD Raul [address] | | | | | | [address] | | | | | | [place] [address] | | | | | | [phone] | | | | | | | | +--------+ + + + + | 08/24/ | Office | Cardiology | Anisha Lopez DO | | | 2019 | Visit | | [address] | | | | | | [place] | | | | | | [address] | | | | | | | [...]
--- OUTSIDE RECORDS SUMMARY | ~2019-05-05 | XMS | Encounter Summary ---
Demographics + + + | Address | [address] | | | [place] [address] | + + + | Home Phone [...] [place] | | | | | [address] | | + + + + + Care Team Providers + +------+ + | Care Trailer Technician Name | Role | Phone | [...] + + | 11/20/ | Refill | [facility] | Vivian, | Medication Refill | | 2014 | | [facility] | Lokesh Gramajo MD [address] | | | | | ONCOLOGY CLINIC [address] | [facility] | | | | | [facility] | [place] [address] | | | | | [place] [address] | [phone] | | | | | [phone] | | | +--------+--------+ + + + [...] | | | | | [place] [address] | | | | | | [phone] | | | | | | | | +--------+ + + + + | 06/08/ | Office | Physical Medicine | Rocky Santos, | | | 2019 | Visit | and Rehabilitation | [address] | | | | | | [place] | | | | | | [address] | | | | | | | | +--------+ + + + + | 06/16/ | Appointment | Pulmonology | Eveline Jaffe | | 2019 | | | MD Nichole [address] | | | | | | [address] | | | | | | [place] [address] | | | | | | [phone] | | | | | | | | +--------+ + + + + | 06/16/ | Office | Pulmonology | Eveline Jaffe | | | 2019 | Visit | | MD Nichole Carter | | | | | | [address] | | | | | | [place] [address] | | | | | | [phone] | | | | | | | | +--------+ + + + + | 08/24/ | Office | Cardiology | Anisha Lopez DO | | 2019 | Visit | | [address] | | | | | | [place] | | | | | | [address] | | | | | | | | +--------+ + + + + documented as of this encounter Visit Diagnoses + + | Diagnosis | + + | Gastroesophageal reflux disease without esophagitis - Primary Esophageal reflux | + + documented in this encounter"
--- OUTSIDE RECORDS SUMMARY | ~2019-05-05 | XMS | Encounter Summary ---
Demographics + + + | Address | [address] | | | [place] [address] | + + + | Home Phone [...] [place] | | | | | [address] | | + + + + + Care Team Providers + +------+ + | Care Landscape Crew Member Name | Role | Phone | [...] | MED CTR MED[facility] | [address] [facility] | carcinoma of lung, | | | | ONCOLOGY CLINIC [address] | [place], [place] | unspecified | | | | W [facility] | [address] | laterality (HCC) | | | | [place] [address] | [phone] | (Primary Dx) | | | | [phone] | | | +--------+ + + + [...] | | | | | [place] [address] | | | | | | [phone] | | | | | | | | +--------+ + + + + | 06/08/ | Office | Physical Medicine | Rocky Santos, | | | 2019 | Visit | and Rehabilitation | [address] | | | | | | [place] | | | | | | [id number] | | | | | | | | +--------+ + + + + | 06/16/ | Appointment | Pulmonology | Eveline Jaffe | | | 2019 | | | MD Nichole Carter | | | | | | [address] | | | | | | [place], [place] [address] | | | | | | [phone] | | | | | | | | +--------+ + + + + | 06/16/ | Office | Pulmonology | Eveline Jaffe | | | 2019 | Visit | | MD Nichole Carter | | | | | | [address] | | | | | | [place] [address] | | | | | | [phone] | | | | | | | | +--------+ + + + + | 08/24/ | Office | Cardiology | Anisha Lopez DO | | | 2019 | Visit | | [address] | | | | | | [place] | | | | | | [address] | | | | | | | [...] not | 57 (L)Comment: | >=60 | [facility] | | | | GLOMERULAR FILTRATION | mL/min/1.73m2 | SOO | | | DOMINICAN | RATE,ESTIMATED | | MEDICAL | | | | mL/min/1.88s9Fzkt than | | CENTER - | | [...] | [facility] | [address] | [place], [place] | [phone] | | [facility] | | [address] | | | - LABORATORY | | | | + + + + + | [facility] | [address] | [place], [place] | | | [facility] | | [address] | | | - LABORATORY | | [...] [address] | [place] | [phone] | | [facility] | | [address] | | | - LABORATORY | | | | + + + + + | [facility] | [address] | [place] | | | [facility] | | [address] | | | - LABORATORY | | | | + + + + + documented in this encounter Visit Diagnoses + + | Diagnosis | + + | Squamous cell carcinoma of lung, unspecified laterality (HCC) - Primary | + + documented in this encounter"
--- OUTSIDE RECORDS SUMMARY | ~2019-05-05 | XMS | Encounter Summary ---
Demographics + + + | Address | [address] | | | [place] [address] | + + + | Home Phone [...] [place] | | | | | [address] | | + + + + + Care Team Providers + +------+ + | Care Hide Curer Name | Role | Phone | + [...] | | | Consult | [place], | [place], [place] | | | | | | [place] [address] | [address] Phone: | | | | | | Phone: | [phone] | | | | | | [phone] | Fax: | | | | | | Fax: | [phone] | | | | | | [phone] | | + +--------+ + + + + Encounter Details +--------+---------+ + + + | Date | Type | Department | Care Team | Description | +--------+---------+ + + + | 03/10/ | Office | [facility] | Anisha Lopez DO | Hypokalemia (Primary | | 2019 | Visit | CARDIOLOGY [place] | [address] | Dx); Paroxysmal | | | | [address] | [place], [place] | atrial fibrillation | | | | [address] [place] [address] | [phone] | (HCC); Essential | | | | [place], [place] | | hypertension; | | | | [address] | | Cerebrovascular | | | | [phone] | | accident (CVA), | | | [...] Anisha Lopez, - 03/10/2019 3:20 PM PDT [facility] Cardiology Follow Up Note Reason for [...] above past medical history. She presents to [facility] cardiology office for initial consultation [...] on following up with jamilah murphy in [place]. She continues to have issues with dyspnea [...] - ANTERIOR; Surgeon: Silviano Cabrera MD; Location: [facility] MAIN OR; Service: Orthopedics; Laterality: N/A; C4-6 CHOLECYSTECTOMY 2000 COLONOSCOPY EYE SURGERY FINGER SURGERY 12-02-11 Thumb HAND SURGERY HARDWARE REMOVAL HYSTERECTOMY 1974 ovaries removed LUMBAR DECOMPRESSION & FUSION N/A 03/31/2014 Procedure: LUMBAR - DECOMPRESSION & FUSION; Surgeon: Silviano Cabrera MD; Location: [facility] OR; Service: Ortho/Spine; Laterality: N/A; LUMBAR EPIDURAL INJECTION 05-27-12 Right L5 TFESI target Right S1 LUMBAR FUSION N/A 03/31/2014 Procedure: LUMBAR - FUSION - POST; Surgeon: Silviano Cabrera MD; Location: [facility] MAIN OR; Service: Ortho/Spine; Laterality: N/A; L 4/S1 LUMBAR FUSION N/A 03/29/2014 Procedure: LUMBAR - FUSION - ANTERIOR; Surgeon: Silviano Cabrera MD; Location: [facility] MAIN O R; Service: Ortho/Spine; Laterality: [...] CENTER | | | | | | [place] [address] | | | | | | [phone] | | | | | | | | +--------+ + + + + | 06/08/ | Office | Physical Medicine | Rocky Santos, | | | 2019 | Visit | and Rehabilitation | MD [address] | | | | | | [place] | | | | | | [address] | | | | | | | | +--------+ + + + + | 06/16/ | Appointment | Pulmonology | Eveline Jaffe | | | 2019 | | | MD [address] | | | | | | [address] | | | | | | [place] [address] | | | | | | [phone] | | | | | | | | +--------+ + + + + | 06/16/ | Office | Pulmonology | Eveline Jaffe | | | 2019 | Visit | | MD Nichole Carter [address] | | | | | | [address] | | | | | | [place] [address] | | | | | | [phone] | | | | | | | | +--------+ + + + + | 08/24/ | Office | Cardiology | Anisha Lopez DO | | | 2019 | Visit | | [address] | | | | | | [place] | | | | | | [address] | | | | | | | [...]
--- OUTSIDE RECORDS SUMMARY | ~2019-05-05 | XMS | Encounter Summary ---
Demographics + + + | Address | [address] | | | [place] [address] | + + + | Home Phone [...] [place] | | | | | [address] | | + + + + + Care Team Providers + +------+ + | Care Procedures Tech Name | Role | Phone | [...] + + | 01/20/ | Refill | [facility] | Abeba Douglas MD | Medication Refill | | 2019 | | RHEUMATOLOGY [address] | | | | | [address] | [address] [place], [place] | | | | | [place], [place] | [address] | | | | | [address] | | | | | | [phone] | | | +--------+--------+ + + + [...] | | | | | [place] [address] | | | | | | [phone] | | | | | | | | +--------+ + + + + | 06/08/ | Office | Physical Medicine | Rocky Santos, | | | 2019 | Visit | and Rehabilitation | [address] | | | | | | [place] | | | | | | [address] | | | | | | | | +--------+ + + + + | 06/16/ | Appointment | Pulmonology | Eveline Jaffe | | 2019 | | | MD [address] | | | | | | [address] | | | | | | [place] [address] | | | | | | [phone] | | | | | | | | +--------+ + + + + | 06/16/ | Office | Pulmonology | Eveline Jaffe | | | 2019 | Visit | | MD [address] | | | | | | [address] | | | | | | [place] [address] | | | | | | [phone] | | | | | | | | +--------+ + + + + | 08/24/ | Office | Cardiology | Anisha Lopez DO | | 2019 | Visit | | [address] | | | | | | [place] | | | | | | [address] | | | | | | | | +--------+ + + + + documented as of this encounter Visit Diagnoses Not on filedocumented in this encounter"
--- OUTSIDE RECORDS SUMMARY | ~2019-05-05 | XMS | Encounter Summary ---
Demographics + + + | Address | [address] | | | [place] [address] | + + + | Home Phone [...] [place] | | | | | [address] | | + + + + + Care Team Providers + +------+ + | Care Processing Technologist Name | Role | Phone | [...] Looney MD | | | | | [place], | | | | | | [place] [address] | | | | | | [phone] | | | +--------+--------+ + + + [...] | | | | | [place] [address] | | | | | | [phone] | | | | | | | | +--------+ + + + + | 06/08/ | Office | Physical Medicine | Rocky Santos, | | | 2019 | Visit | and Rehabilitation | MD [address] | | | | | | [place] | | | | | | [address] | | | | | | | | +--------+ + + + + | 06/16/ | Appointment | Pulmonology | Eveline Jaffe | | 2019 | | | MD [address] Carter [address] | | | | | | [address] | | | | | | [place] [address] | | | | | | [phone] | | | | | | | | +--------+ + + + + | 06/16/ | Office | Pulmonology | Eveline Jaffe | | | 2019 | Visit | | MD Raul [address] | | | | | | [address] | | | | | | [place] [address] | | | | | | [phone] | | | | | | | | +--------+ + + + + | 08/24/ | Office | Cardiology | Anisha Lopez DO | | | 2019 | Visit | | [address] | | | | | | [place] | | | | | | [address] | | | | | | | | +--------+ + + + + documented as of this encounter Visit Diagnoses Not on filedocumented in this encounter"
--- OUTSIDE RECORDS SUMMARY | ~2019-05-05 | XMS | Encounter Summary ---
Demographics + + + | Address | [address] | | | [place] [address] | + + + | Home Phone [...] [place] | | | | | [address] | | + + + + + Care Team Providers + +------+ + | Care Oracle Fusion Developer Name | Role | Phone | [...] Looney MD | | | | | [place], | | | | | | [place] [address] | | | | | | [phone] | | | +--------+ + + + [...] | | | | | [place] [address] | | | | | | [phone] | | | | | | | | +--------+ + + + + | 06/08/ | Office | Physical Medicine | Rocky Santos, | | | 2019 | Visit | and Rehabilitation | MD [address] | | | | | | [place] | | | | | | [address] | | | | | | | | +--------+ + + + + | 06/16/ | Appointment | Pulmonology | Eveline Jaffe | | 2019 | | | MD [address] | | | | | | [address] | | | | | | [place] [address] | | | | | | [phone] | | | | | | | | +--------+ + + + + | 06/16/ | Office | Pulmonology | Eveline Jaffe | | | 2019 | Visit | | MD Raul [address] | | | | | | [address] | | | | | | [place] [address] | | | | | | [phone] | | | | | | | | +--------+ + + + + | 08/24/ | Office | Cardiology | Anisha Lopez DO | | | 2019 | Visit | | [address] | | | | | | [place] | | | | | | [address] | | | | | | | [...] FINDINGS: Stable left internal jugular line | [facility] | | with tip in the superior [...] ST. | [address] | [place], [place] | [phone] | | [facility] | | [address] | | | - IMAGING | | | | + + + + + documented in this encounter Visit Diagnoses + + | Diagnosis | + + | Cough - Primary | + + documented in this encounter"
--- OUTSIDE RECORDS SUMMARY | ~2019-05-05 | XMS | Encounter Summary ---
Demographics + + + | Address | [address] | | | [place] [address] | + + + | Home Phone [...] | [facility] | | | and [...] [place] | | | | | [address] | | + + + + + Care Team Providers + +------+ + | Care Breakfast Cook Name | Role | Phone | [...] + + | 04/13/ | Office | [facility] [place] | Claudia, | Pulmonary nodule | | 2012 | Visit | PULMONARY [address] | Ayana Looney MD | (Primary Dx) | | | | [place], | | | | | | [place] [address] | | | | | | [phone] | | | +--------+---------+ + + + [...] MD [place] Pulmonary and Critical Care [facility] [address] [place], [address] HPI Thea Carmona is a 67 y.o. [...] arthritis on prednisone and methotrexate, Dr. 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 documented in [...] | | | | | [place] [address] | | | | | | [phone] | | | | | | | | +--------+ + + + + | 06/08/ | Office | Physical Medicine | Rocky Santos, | | | 2019 | Visit | and Rehabilitation | MD [address] | | | | | | [place] | | | | | | [address] | | | | | | | | +--------+ + + + + | 06/16/ | Appointment | Pulmonology | Eveline Jaffe | | 2019 | | | MD [address] | | | | | | [address] | | | | | | [place] [address] | | | | | | [phone] | | | | | | | | +--------+ + + + + | 06/16/ | Office | Pulmonology | Eveline Jaffe | | | 2019 | Visit | | MD Raul [address] | | | | | | [address] [address] | | | | | | [place] [address] | | | | | | [phone] | | | | | | | | +--------+ + + + + | 08/24/ | Office | Cardiology | Anisha Lopez DO | | | 2019 | Visit | | [address] | | | | | | [place] | | | | | | [address] | | | | | | | | +--------+ + + + + documented as of this encounter Results XR Chest PA and Lateral (04/13/2013 3:30 PM PST) + + | Specimen | + + | | + + + + + | Narrative | Performed At | + + + | [facility] | [facility] | | Department [address] [place] [address] | [facility] | | [ rep [address]] [ rep [facility] | | [facility]] Signed | - IMAGING | | | | | Patient Name: THEA CARMONA Colette Physician: | | | OFFE. : 1945 Age: 67 Sex: F Unit #: [id number] | | | Exam Date: 04/13/13 Location: LAB | | | Report #: [id number] Page: | | | %(RAD)RES..mtdd.print.filter("pg") of %(RAD) | | | RES..mtdd.print.filter("tpg") | | | | | | Accession Number: [id number] | | | CHEST, PA AND LATERAL, [...] | | | Transcribed Date/Time: 04/13/2013 17:08 Manager Ethics: | | | <<Signature on File>> | | | Matheus | | | MD Kang04/13/13 9794 <Electronically signed by Matheus Kapadia MD> | | | Matheus Kapadia MD 04/13/13 8449 Manager Ethics: Jesica | | | Hhiklnyxcltci78/13/13 0452 Ayana Taylor MD | | | | | + + + + + + + + | Performing | Address | City/State/Zipcode | Phone Number | | Organization | | | | + + + + + | [facility] | [address] | [place] | [phone] | | [facility] | | [address] | | | - IMAGING | | [...] + | [facility] | [address] | [place], [place] | [phone] | | [facility] | | [address] | | | - LABORATORY | | | | + + + + + | [facility] | [address] | [place] | | | [facility] | | [address] | | | - LABORATORY | | | | + + + + + documented in this encounter Visit Diagnoses + + | Diagnosis | + + | Pulmonary nodule - Primary Solitary pulmonary nodule | + + documented in this encounter
--- OUTSIDE RECORDS SUMMARY | ~2019-05-05 | XMS | Encounter Summary ---
Demographics + + + | Address | [address] | | | [place] [address] | + + + | Home Phone [...] [place] | | | | | [address] | | + + + + + Care Team Providers + +------+ + | Care Seeing Eye Dog Teacher Name | Role | Phone | [...] + + | 04/17/ | Office | [facility] | Offenstein, | COPD (chronic | | 2013 | Visit | PULMONARY [address] | Ayana Looney MD | obstructive | | | | [place], | | pulmonary disease) | | | | [place] [address] | | (Primary Dx); MARCE | | | | [phone] | | (obstructive sleep | | | [...] an overnight oxy gen test through [facility]. Call the [employer] before you pick it up to make sure they have a box available. You will warp picker a box at the [employer]. Do the t est on room air. [...] [facility]) on prednisone and methotrexate, Dr. 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 Respiratory Therapy Supplies [employer] Respironics autotitrating CPAP at 5-9 cm H2O for life time. Mask, headgear, chin strap, hoses, humidifier chamber and filters. Dx: 327.23 1 each 0 Respiratory Therapy Supplies [employer] ResMed S9 auto CPAP 5-9 cm H2O. [...] made to ensure accuracy; however, inadvertent computerized patient assistant errors may be pre sent. documented [...] | | | | | [place] [address] | | | | | | [phone] | | | | | | | | +--------+ + + + + | 06/08/ | Office | Physical Medicine | Rocky Santos, | | | 2019 | Visit | and Rehabilitation | [address] | | | | | | [place] | | | | | | [address] | | | | | | | | +--------+ + + + + | 06/16/ | Appointment | Pulmonology | Eveline Jaffe | | | 2019 | | | MD [address] | | | | | | [address] | | | | | | [place], [place] [address] | | | | | | [phone] | | | | | | | | +--------+ + + + + | 06/16/ | Office | Pulmonology | Eveline Jaffe | | | 2019 | Visit | | MD [address]ole [address] | | | | | | [address] | | | | | | [place] [address] | | | | | | [phone] | | | | | | | | +--------+ + + + + | 08/24/ | Office | Cardiology | Anisha Lopez DO | | | 2019 | Visit | | [address] | | | | | | [place] | | | | | | [address] | | | | | | | [...]
--- OUTSIDE RECORDS SUMMARY | ~2019-05-05 | XMS | Encounter Summary ---
Demographics + + + | Address | [address] | | | [place] [address] | + + + | Home Phone [...] [place] | | | | | [address] | | + + + + + Care Team Providers + +------+ + | Care Plant Anatomy Teacher Name | Role | Phone | + +------+ + | Davis Ivan MD | PCP | | + +------+ + Encounter Details +--------+ + + + + | Date | Type | Department | Care Team | Description | +--------+ + + + + | 08/30/ | Hospital | [facility] | Conversion | Pain | | 2014 | Encounter | CONVERSION [address]P [address] | Transaction, | | | | | [address] | Provider Unknown | | | | | [place] | [phone] | | | | | [address] | | | | | | [phone] | | | +--------+ + + + [...] | | | | | [place] [address] | | | | | | [phone] | | | | | | | | +--------+ + + + + | 06/08/ | Office | Physical Medicine | Rocky Santos, | | | 2019 | Visit | and Rehabilitation | MD [address] | | | | | | [place] | | | | | | [id number] | | | | | | | | +--------+ + + + + | 06/16/ | Appointment | Pulmonology | Eveline Jaffe | | 2019 | | | MD [address] | | | | | | [address] | | | | | | [place] [address] | | | | | | [phone] | | | | | | | | +--------+ + + + + | 06/16/ | Office | Pulmonology | Eveline Jaffe | | | 2019 | Visit | | MD Raul [address] | | | | | | [address] | | | | | | [place] [address] | | | | | | [phone] | | | | | | | | +--------+ + + + + | 08/24/ | Office | Cardiology | Anisha Lopez DO | | | 2019 | Visit | | [address] | | | | | | [place] | | | | | | [address] | | | | | | | [...]
--- OUTSIDE RECORDS SUMMARY | ~2019-05-05 | XMS | Encounter Summary ---
Demographics + + + | Address | [address] | | | [place] [address] | + + + | Home Phone [...] [place] | | | | | [address] | | + + + + + Care Team Providers + +------+ + | Care Neuro Psych Sales Specialist Name | Role | Phone | + +------+ + | Davis Ivan MD | PCP | | + +------+ + Encounter Details +--------+ + + + + | Date | Type | Department | Care Team | Description | +--------+ + + + + | 07/27/ | Hospital | [facility] | [facility], | | | 2014 | Encounter | MED CTR SLEEP | Ayana Looney MD | | | | | [place] [address] | | | | | | [place] | | | | | | [address] | | | | | | [phone] | | | +--------+ + + + [...] | 2018 | Visit | | [address] | | | | | | [address] | | | | | | [place] [address] | | | | | | [phone] | | | | | | | | +--------+ + + + + | 06/08/ | Office | Physical Medicine | Rocky Santos, | | | 2019 | Visit | and Rehabilitation | MD [address] | | | | | | [place] | | | | | | [address] | | | | | | | | +--------+ + + + + | 06/16/ | Appointment | Pulmonology | Eveline Jaffe | | | 2019 | | | MD [address] | | | | | | [address] | | | | | | [place] [address] | | | | | | [phone] | | | | | | | | +--------+ + + + + | 06/16/ | Office | Pulmonology | Eveline Jaffe | | | 2019 | Visit | | MD [address] | | | | | | [address] | | | | | | [place] [address] | | | | | | [phone] | | | | | | | | +--------+ + + + + | 08/24/ | Office | Cardiology | Anisha Lopez DO | | | 2019 | Visit | | [address] | | | | | | [place] | | | | | | [address] | | | | | | | | +--------+ + + + + documented as of this encounter Visit Diagnoses Not on filedocumented in this encounter"
--- OUTSIDE RECORDS SUMMARY | ~2019-05-05 | XMS | Encounter Summary ---
Demographics + + + | Address | [address] | | | [place] [address] | + + + | Home Phone [...] [place] | | | | | [address] | | + + + + + Care Team Providers + +------+ + | Care Registered Dental Assistant Rda Name | Role | Phone | + [...] + + | 09/01/ | Hospital | [facility] | [place] | Acute infective | | 2018 - | Encounter | [facility] | MD German [address] | exacerbation of | | | | [address] [place] | [address] [place] | chronic obstructive | | 09/04/ | | [place] [address] | [place] [address] | airway disease | | 2019 | | [phone] | [phone] | (HCC); | | | | | [...] , Hypothyroidism and GERd, recent admission at [facility] for COPD exacerbation/Hypoxia, treated with nebs [...] lower lobe (appear denser than CXR at [facility] . Pt also had CT abdomen/pelvis at [facility] for rectal sheath hematoma which showed nodu [...] aorta and coronary arteries. The implanted left fall intern al jugular port catheter again terminates [...] answered and education giving. They verbalized understanding. TIMBER MANAGEMENT PROFESSOR wheel delgado ient out to the car. Bunny Rojas, PharmD - 09/04/2018 6:58 AM PDT WARFARIN PER PHARMACY PROTOCOL: Subjective/Objective: Thea Carmona is a 73 y.o. female admitted on 09/01/18 for HAP and is receiving warfa rin pt a for h.o PE. Patient has a past medical history of Acid reflux disease; Arthritis; COPD (chronic obstructive pulmonary disease) ([facility]); Depression; HONG (dyspnea on exertion); F ull dentures; GERD (gastroesophageal reflux disease); Hyperlipidemia; Hypertension; Hypothyr oidism; Obesity; MARCE (obstructive sleep apnea); Osteoporosis; Pneumonia (2008); Recurrent sq uamous cell carcinoma of lung ([facility]) (07/11/2014); Rheumatoid arthritis(714.0); Spinal stenosi s; Spondylolisthesis of cervical region; Sputum culture positive for Scopulariopsis species; Squamous cell carcinoma of lung ([facility]) (07/2013); Stroke ([facility]) (2006); Stroke ([facility]) (2007); a nd Upper GI bleed (06/2014). 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 5. Pharmacist to follow daily Warfarin Dosing Nomogram Per P&T-approved Electronically signed by: Bunny Cruz PharmD 09/04/2018 7:27 Teri Craig MD - 09/03/2018 1:37 PM PDT HOSPITALIST PROGRESS NOTE Patient: Thea Carmona : 1945: Age: 73 y.o. MedRec: [id number] PCP: Caitlin Chino MD Admission date: 09/01/2018 [...] H ypothyroidism and GERd, recent admission at [facility] for COPD exacerbation/Hypoxia, sathya ated with [...] lower lobe (appear denser than CXR at [facility]. Pt also had CT abdomen/pelvis at [facility] for rectal sheath hematoma which showed nodular [...] 299 (H) 120 - 246 U/L 1,3 Xvyc-D-Fkswzk Collection Time: 09/01/18 19:28 Result Value Ref [...] disease; Arthritis; COPD (chronic obstructive pulmonary disease) ([facility]); Depression; HONG (dyspnea on exertion); F ull dentures; GERD (gastroesophageal reflux disease); Hyperlipidemia; Hypertension; Hypothyr oidism; Obesity; MARCE (obstructive sleep apnea); Osteoporosis; Pneumonia (2008); Recurrent sq uamous cell carcinoma of lung ([facility]) (07/11/2014); Rheumatoid arthritis(714.0); Spinal stenosi s; Spondylolisthesis of cervical region; Sputum culture positive for Scopulariopsis species; Squamous cell carcinoma of lung ([facility]) (07/2013); Stroke ([facility]) (2006); Stroke ([facility]) (2007); a nd Upper GI bleed (06/2014). 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 5. Pharmacist to follow daily Warfarin [...] and was admitted for August 17 to [facility] at [facility] in [place]. We've requested those notes and they were [...] I learned from the patient and her suspender maker Mirza and the discharge summary from July [...] he was admitted August 17, 2018 to [facility] in [place]. Antimicrobials - Current Antibiotic Dates of Therapy vanco 4/3 zosyn 4/3 bactrim 4/3 Antimicrobials - Discontinued Antibiotic Dates of Therapy Historical Vancomycin dosing (previous & current encounter): vanco 1g q24h Micro/Cultures/Diagnostics: Microbiology Results (Last 14 Days by Collected Date with Culture/Sensitivity) Procedure Component Value Units Date/Time Culture, MRSA [[id number]] Collected: 09/01/182045 Order Status: Sent Lab Status: In process Updated: 09/01/182045 Specimen: Tissue from Nares Culture, Blood [[id number]] (Normal) Collected: 09/01/181926 Order Status: Completed Lab Status: Preliminary result Updated: 09/02/18 0741 Specimen: Blood Culture No growth: Monitored continually by instrument for 5 days Culture, Blood [[id number]] (Normal) Collected: 09/01/181926 Order Status: Completed Lab Status: Preliminary result Updated: 09/02/18 0741 Specimen: Blood Culture No growth: Monitored continually by instrument for 5 days Respiratory pathogen panel, NAAT [[id number]] Order Status: Sent Lab Status: No result Specimen: Tissue from Nasopharynx Pneumocystis Jiroveci Ag, Immunofluorescent [[id number]] Collected: 09/01/18 160 Order Status: Sent Lab Status: In process Updated: 09/01/18 160 Specimen: Body Fluid from Sputum, Expectorated Culture, Respiratory, Lower, Smear [[id number]] Collected: 09/01/18 1555 Order Status: Completed Lab [...] Carmona : 1945: Age: 73 y.o. MedRec: [id number] PCP: Caitlin Chino MD Admission date: 09/01/2018 [...] H ypothyroidism and GERd, recent admission at [facility] for COPD exacerbation/Hypoxia, sathya ated with [...] lower lobe (appear denser than CXR at [facility]. Pt also had CT abdomen/pelvis at [facility] for rectal sheath hematoma which showed nodular [...] Arthr itis; COPD (chronic obstructive pulmonary disease) ([facility]); Depression; HONG (dyspnea on exerti on); Full dentures; GERD (gastroesophageal reflux disease); Hyperlipidemia; Hypertension; Hy pothyroidism; Obesity; MARCE (obstructive sleep apnea); Osteoporosis; Pneumonia (2008); Recurr ent squamous cell carcinoma of lung ([facility]) (07/11/2014); Rheumatoid arthritis(714.0); Spinal s tenosis; Spondylolisthesis of cervical region; Sputum culture positive for Scopulariopsis sp ecies; Squamous cell carcinoma of lung ([facility]) (07/2013); Stroke ([facility]) (2006); Stroke ([facility]) (18 01); and Upper GI bleed (06/2014). [...] and was admitted for August 17 to [facility] 24 at [facility] in [place]. We've requested those notes and they were [...] I learned from the patient and her suspender maker Mirza and the discharge summary from July [...] he was admitted August 17, 2018 to [facility] in [place]. Antimicrobials - Current Antibiotic Dates of Therapy vanco 4/3 zosyn 4/3 bactrim 4/3 Antimicrobials - Discontinued Antibiotic Dates of Therapy Historical Vancomycin dosing (previous & current encounter): vanco 1g q24h Micro/Cultures/Diagnostics: Microbiology Results (Last 14 Days by Collected Date with Culture/Sensitivity) Procedure Component Value Units Date/Time Culture, MRSA [[id number]] Collected: 09/01/182045 Order Status: Sent Lab Status: In process Updated: 09/01/182045 Specimen: Tissue from Nares Culture, Blood [[id number]] (Normal) Collected: 09/01/181926 Order Status: Completed Lab Status: Preliminary result Updated: 09/02/18740 Specimen: Blood Culture No growth: Monitored continually by instrument for 5 days Culture, Blood [[id number]] (Normal) Collected: 09/01/181926 Order Status: Completed Lab Status: Preliminary result Updated: 09/02/18740 Specimen: Blood Culture No growth: Monitored continually by instrument for 5 days Respiratory pathogen panel, NAAT [[id number]] Order Status: Sent Lab Status: No result Specimen: Tissue from Nasopharynx Pneumocystis Jiroveci Ag, Immunofluorescent [[id number]] Collected: 09/01/18 160 Order Status: Sent Lab Status: In process Updated: 09/01/181607 Specimen: Body Fluid from Sputum, Expectorated Culture, Respiratory, Lower, Smear [[id number]] Collected: 09/01/18 1557 Order Status: Sent Lab Status: In process Updated: 09/01/18 1605 Specimen: Body Fluid from Sputum, Expectorated Relevant [...] disease; Arthritis; COPD (chronic obstructive pulmonary disease) ([facility]); Depression; HONG (dyspnea on exertion); Full dentures; GERD (gastroesophageal reflux disease); Hyperlipidemia; Hypertension; Hypothyroidism; Obesi ty; MARCE (obstructive sleep apnea); Osteoporosis; Pneumonia (2008); Recurrent squamous cell c arcinoma of lung ([facility]) (07/11/2014); Rheumatoid arthritis(714.0); Spinal stenosis; Spondyloli sthesis of cervical region; Sputum culture positive for Scopulariopsis species; Squamous marilou l carcinoma of lung ([facility]) (07/2013); Stroke ([facility]) (2006); Stroke ([facility]) (2007); and Upper GI b leed (06/2014). [...] disease; Arthritis; COPD (chronic obstructive pulmonary disease) ([facility]); Depression; HONG (dyspnea on exertion); Full dentures; GERD (gastroesophageal reflux disease); Hyperlipidemia; Hypertension; Hypothyroidism; Obesi ty; MARCE (obstructive sleep apnea); Osteoporosis; Pneumonia (2008); Recurrent squamous cell c arcinoma of lung ([facility]) (07/11/2014); Rheumatoid arthritis(714.0); Spinal stenosis; Spondyloli sthesis of cervical region; Sputum culture positive for Scopulariopsis species; Squamous marilou l carcinoma of lung ([facility]) (07/2013); Stroke ([facility]) (2006); Stroke ([facility]) (2007); and Upper GI b leed (06/2014). [...] Arthr itis; COPD (chronic obstructive pulmonary disease) ([facility]); Depression; HONG (dyspnea on exerti on); Full dentures; GERD (gastroesophageal reflux disease); Hyperlipidemia; Hypertension; Hy pothyroidism; Obesity; MARCE (obstructive sleep apnea); Osteoporosis; Pneumonia (2008); Recurr ent squamous cell carcinoma of lung ([facility]) (07/11/2014); Rheumatoid arthritis(714.0); Spinal s tenosis; Spondylolisthesis [...] for August 17 to arch 24 at [facility] in [place]. We've requested those notes and they were [...] I learned from the patient and her suspender maker Mirza and the discharge summary from July [...] he was admitted August 17, 2018 to [facility] in [place]. Antimicrobials - Current Antibiotic Dates of Therapy vanco 4/3 zosyn 4/3 bactrim 4/3 Antimicrobials - Discontinued Antibiotic Dates of Therapy Historical Vancomycin dosing (previous & current encounter): vanco 1g q24h Micro/Cultures/Diagnostics: Microbiology Results (Last 14 Days by Collected Date with Culture/Sensitivity) Procedure Component Value Units Date/Time Culture, MRSA [[id number]] Collected: 09/01/182045 Order Status: Sent Lab Status: In process Updated: 09/01/182045 Specimen: Tissue from Nares Culture, Blood [[id number]] Collected: 09/01/181926 Order Status: Sent Lab Status: In process Updated: 09/01/181931 Specimen: Blood Culture, Blood [[id number]] Collected: 09/01/181926 Order Status: Sent Lab Status: In process Updated: 09/01/181931 Specimen: Blood Respiratory pathogen panel, NAAT [[id number]] Order Status: Sent Lab Status: No result Specimen: Tissue from Nasopharynx Pneumocystis Jiroveci Ag, Immunofluorescent [[id number]] Collected: 09/01/181607 Order Status: Sent Lab Status: In process Updated: 09/01/18 160 Specimen: Body Fluid from Sputum, Expectorated Culture, Respiratory, Lower, Smear [[id number]] Collected: 09/01/18 1555 Order Status: Sent Lab [...] | 2018 | Visit | | [address] | | | | | | [address] | | | | | | [place] [address] | | | | | | [phone] | | | | | | | | +--------+ + + + + | 06/08/ | Office | Physical Medicine | Rocky Santos, | | | 2019 | Visit | and Rehabilitation | MD Nichole Mario | | | | | | [place] | | | | | | [address] | | | | | | | | +--------+ + + + + | 06/16/ | Appointment | Pulmonology | Eveline Jaffe | | 2019 | | | MD Nichole Carter | | | | | | [place] | | | | | | [place] [address] | | | | | | [phone] | | | | | | | | +--------+ + + + + | 06/16/ | Office | Pulmonology | Eveline Jaffe | | 2019 | Visit | | MD Nichole Carter | | | | | | [place] | | | | | | [place] [address] | | | | | | [phone] | | | | | | | | +--------+ + + + + | 08/24/ | Office | Cardiology | Anisha Lopez DO | | | 2019 | Visit | | [address] | | | | | | [place] | | | | | | [address] | | | | | | | [...] + +--------+ + + + | 1,3 [id number] | Routin | 09/01/2018 | | Results [...] [address] | [place] | [phone] | | [facility] | | [address] | | | - LABORATORY | | [...] mL/min/1.73m2 | [facility] | | | [place] | | | MEDICAL | | | [...] [address] | [place] | [phone] | | [facility] | | [address] | | | - LABORATORY | | [...] + | [facility] | [address] | [place] | [phone] | | [facility] | | [address] | | | - LABORATORY | | [...] [address] | [place] | [phone] | | [facility] | | [address] | | | - LABORATORY | | [...] + | [facility] | [address] | [place] | [phone] | | [facility] | | [address] | | | - LABORATORY | | [...] [address] | [place] | [phone] | | [facility] | | [address] | | | - LABORATORY | | [...] [address] | [place] | [phone] | | [facility] | | [address] | | | - LABORATORY | | [...] mL/min/1.73m2 | [facility] | | | [place] | | | MEDICAL | | | [...] + | [facility] | [address] | [place] | [phone] | | [facility] | | [address] | | | - LABORATORY | | [...] [address] | [place] | [phone] | | [facility] | | [address] | | | - LABORATORY | | [...] [address] | [place] | [phone] | | [facility] | | [address] | | | - LABORATORY | | | | + + + + + 1,3 Dbkd-Y-Gbpgql (09/01/2018 7:28 PM PDT) + + + [...] levels | | | | | | of(1-3)-Vqet-C-Navqzl. | | | | | | The [...] produces | | | | | | little(1-3)-Cvmf-I-Vdcfx | | | | | | n [...] + | Performed at: 01 - [facility] [address], | REFERENCE LAB | | [place] [id number] Television Repairer: Keyana Henderson PhD, | [facility] | | Phone: [phone] | | + + + + + + + + | Performing | Address | City/State/Zipcode | Phone Number | | Organization | | | | + + + + + | REFERENCE LAB | [address] | [place] [address] | [phone] | | [facility] | Drive [...] [address] | [place] | [phone] | | [facility] | | [address] | | | - LABORATORY | | [...] [address] | [place] | [phone] | | [facility] | | [address] | | | - LABORATORY | | [...] | | | | | mmol/L | [facility] | | | | | | MEDICAL | | | | | | CENTER - | | | | | | LABORATORY | | + +---------+ + + + | K | 3.0 (L) | 3.4 - 5.1 | [facility] | | | | | mmol/L | [facility] | | | | | | MEDICAL [...] | [facility] | | | [place] | | | MEDICAL | | | [...] [address] | [place] | [phone] | | [facility] | | [address] | | | - LABORATORY | | [...] + | [facility] | [address] | [place] | [phone] | | [facility] | | [address] | | | - LABORATORY | | [...] [address] | [place] | [phone] | | [facility] | | [address] | | | - LABORATORY | | [...] [address] | [place] | [phone] | | [facility] | | [address] | | | - LABORATORY | | [...] | | | | medication. Thank you!, Bere Daniels | | | | | | [...] | | | | | dose on [facility] 09/01/18 at 2100 | | | | [...] | | | | | | on [facility] 09/02/18 at 0000 | | | | [...] | | | | First dose on [facility] 09/02/18 at 0300, | | | | [...] | | | | 90 Minutes, ONCE, [facility] 09/02/18 at | | | | | [...]
--- OUTSIDE RECORDS SUMMARY | ~2019-05-05 | XMS | Encounter Summary ---
Demographics + + + | Address | [address] | | | [place] [address] | + + + | Home Phone [...] [place] | | | | | [address] | | + + + + + Care Team Providers + +------+ + | Care Bridge Crane Operator Name | Role | Phone | [...] + + | 09/06/ | Telephone | [facility] | Jimmy Banegas DO | Other | | 2014 | | [facility] | [address] [facility] | | | | | [facility] [address] | [place], [place] | | | | | [facility] | [address] | | | | | [place] [address] | | | | | | [phone] | | | +--------+ + + + [...] | | [facility] | | | | | | [place] [address] | | | | | | [phone] | | | | | | | | +--------+ + + + + | 06/08/ | Office | Physical Medicine | Rocky Santos, | | | 2019 | Visit | and Rehabilitation | [address] | | | | | | [place] | | | | | | [address] | | | | | | | | +--------+ + + + + | 06/16/ | Appointment | Pulmonology | Eveline Jaffe | | | 2019 | | | MD [address]ole [address] | | | | | | [address] | | | | | | [place] [address] | | | | | | [phone] | | | | | | | | +--------+ + + + + | 06/16/ | Office | Pulmonology | Eveline Jaffe | | | 2019 | Visit | | MD [address]ole [address] | | | | | | [address] [place] | | | | | | [place] [address] | | | | | | [phone] | | | | | | | | +--------+ + + + + | 08/24/ | Office | Cardiology | Anisha Lopez DO | | | 2019 | Visit | | [address] | | | | | | [place] | | | | | | [address] | | | | | | | | +--------+ + + + + documented as of this encounter Visit Diagnoses Not on filedocumented in this encounter"
--- OUTSIDE RECORDS SUMMARY | ~2019-05-05 | XMS | Clinical Summary ---
Demographics + + + | Address | [address] | | | [place] [address] | + + + | Home Phone [...] [place] | | | | | [address] | | + + + + + Care Team Providers + +------+ + | Care Paving Contractor Name | Role | Phone | [...] ED) | | | | | | | [...] ED) | | | | | | | [...] automatically from request for surgery | | [id number] | + + + + + | Trigger finger, left middle finger | 12/08/2018 | + + + + + | Overview: Added automatically from request for surgery | | [id number] | + + + + + | [...] automatically from request for surgery | | [id number] | + + + + + | Trigger middle finger of left hand | 09/07/2018 | + + + + + | Overview: Added automatically from request for surgery | | [id number] | + + + + + | [...] biopsy by | | interventional radiology at [facility] of the right lung massshows | [...] pain secondary to acute bronchitis.10. CT chest [facility] on September 28, 2014 demonstrated persistent 32 mm x 26 mm | | x 27 mm Right Hilar Mass. Last Assessment & Plan: Stephanie | | returned to the [facility] on | | November 09, 2014 for follow up of her locally recurrent RIGHT Lung | | cancer. Interval history is notable for the fact that Thea was | | admitted to [facility] in [place], [place] for acute | | exacerbation of chronic bronchitis. During her hospitalization | | there, a chest CT was performed demonstrating a persistent 32 x | | 26 mm right hilar mass. These images were reviewed subsequently | | at the [facility] on their PACS system. Radiographic [...] persistent disease. 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) | +--------+ + + + [...] | | | | | | [place] [address] | | | | | | [phone] | | | | | | | | +--------+ + + + + | 06/08/ | Office | Physical Medicine | Rocky Santos, | | | 2019 | Visit | and Rehabilitation | MD Nichole Landis | | | | | | [place] | | | | | | [id number] | | | | | | | | +--------+ + + + + | 06/16/ | Appointment | Pulmonology | Eveline Jaffe | | 2019 | | | MD Nichole [address] | | | | | | [place] | | | | | | [place] [address] | | | | | | [phone] | | | | | | | | +--------+ + + + + | 06/16/ | Office | Pulmonology | Eveline Jaffe | | | 2019 | Visit | | MD Raul [address] | | | | | | [place] | | | | | | [place] [address] | | | | | | [phone] | | | | | | | | +--------+ + + + + | 08/24/ | Office | Cardiology | Anisha Lopez DO | | | 2019 | Visit | | [address] | | | | | | [place] | | | | | | [address] | | | | | | | [...] | N/A: | | | 08/20/ | [id number] | | Dbx 2.5ml - | | Spine | | | 2014 | | | [id number]: | | Cervic | | | | /83231 | | Qty: 1 on 01/19/2013 by | | al | | | | 220463 | | Silviano Cabrera MD | | | | | | 574198 | | | | | | | | 8 / | + +------+--------+ +--------+--------+--------+ | Cage Triad Allograft | | N/A: | | | 08/16/ | 068628 | | [id number] | | Spine | | | 2017 | 7 | | [id number]: Qty: 1 | | Cervic | | | | /[id number] | | on 01/19/2013 by Rick, | | al | | | | 8-185 | | MD Silviano | | | | | | / | + +------+--------+ +--------+--------+--------+ | Cage Triad Allograft 6mm - | | N/A: | | | 06/23/ | 315873 | | [id number]: Qty: 1 | | Spine | | | 2018 | 6 | | on 01/19/2013 by Rick, | | Cervic | | | | /32752 | | MD Silviano | | al | | | | 0-206 | | | | | | | | / | + +------+--------+ +--------+--------+--------+ | Screw Vectra Self Drilling | | N/A: | | | | 04.613 | | Variable Angle 4.0x14mm - | | Spine | | | | .514 | | [id number]: Qty: 2 on | | Cervic | | | | /93984 | | 01/19/2013 by Silviano Cabrera, | | al | | | | 514 / | | | | | | | | | + +------+--------+ +--------+--------+--------+ | Screw Vectra Self Drilling | | N/A: | | | | 04.613 | | Variable Angle 1leq76rm - | | Spine | | | | .516 | | [id number]: Qty: 2 on | | Cervic | | | | /36295 | | 01/19/2013 by Silviano Cabrera, | | al | | | | 516 / | | MD | | | | | | | + +------+--------+ +--------+--------+--------+ | Screw Vectra Self Drilling | | N/A: | | | | 04.613 | | Fixed Angle 4.0x14mm - | | Spine | | | | .714 | | [id number]: Qty: 2 on | | Cervic | | | | /21681 | | 01/19/2013 by Silviano Cabrera, | | al | | | | 714 / | | MD | | | | | | | + +------+--------+ +--------+--------+--------+ | Plate Vectra Cervical 30mm - | | N/A: | | | | 04.613 | | [id number]: Qty: 1 on | | Spine | | | | .130 | | 01/19/2013 by Silviano Cabrera, | | Cervic | | | | /03801 | | MD | | al | | | | 130 / | + +------+--------+ +--------+--------+--------+ | Allograft Osteocell 10cc | | | | | 08/25/ | 584501 | | [id number] - | | | | | 2018 | 0 | | [id number]: Qty: 1 | | | | | | /71495 | | on 04/06/2013 | | | | | | 1542 / | + +------+--------+ +--------+--------+--------+ | Allograft Putty Freeze Dried | | N/A: | | | 11/10/ | [id number] | | Demineralized Bone Matrix Dbx | | Spine | | | 2014 | | | 1ml - | | Cervic | | | | /24779 | | [id number]: | | al | | | | [id number] | | Qty: 1 on 04/06/2013 by | | | | | | 682253 | | Silviano Cabrera MD | | | | | | 1 / | + +------+--------+ +--------+--------+--------+ | Allograft Putty Freeze Dried | | N/A: | | | 10/20/ | 439892 | | Dbx 2.5ml - | | Spine | | | 2014 | | | [id number]: | | Cervic | | | | /86482 | | Qty: 1 on 04/06/2013 by | | al | | | | 399356 | | Silviano Cabrera MD | | | | | | 011107 | | | | | | | | 3 / | + +------+--------+ +--------+--------+--------+ | Screw Vuepoint Post Cerv | | N/A: | | | | 927487 | | 3.5x12mm - [id number]: | | Spine | | | | 2 | | Qty: 3 on 04/06/2013 by | | Altagraciaic | | | | /11414 | | Silviano Cabrera MD | | al | | | | 12 / | + +------+--------+ +--------+--------+--------+ | Screw Vuepoint Post Cerv | | N/A: | | | | 094419 | | 3.5x14mm - [id number]: | | Spine | | | | 4 | | Qty: 1 on 04/06/2013 by | | Cervic | | | | /73809 | | Silviano Cabrera MD | | al | | | | 14 / | + +------+--------+ +--------+--------+--------+ | Srini Vuepoint 3.5x60mm - | | N/A: | | | | 495935 | | [id number]: Qty: 1 on | | Spine | | | | 0 | | 04/06/2013 by Silviano Cabrera, | | Cervic | | | | /21741 | | MD | | al | | | | 60 / | + +------+--------+ +--------+--------+--------+ | Screw Vuepoint Post Cerv Set | | N/A: | | | | 272037 | | Tulip & Hook - | | Spine | | | | 0 | | [id number]: Qty: 4 on | | Cervic | | | | /93298 | | 04/06/2013 by Silviano Cabrera, | | al | | | | 00 / | | MD | | | | | | | + +------+--------+ +--------+--------+--------+ | Graft Sponge Kit Bone Infuse | | | MEDTRONIC - | | | 847342 | | Medium 56ml - | | | MEDT | | | 0 / | | [id number]: Qty: 1 on | | | | | | /[id number] | | 03/29/2014 by Silviano Cabrera, | | | | | | 05AA6 | | MD | | | | | | | + +------+--------+ +--------+--------+--------+ | Triad Alif Allograft | | | NUVASIVE - | | 08/02/ | 201168 | | [id number]: Qty: 1 on | | | NVSV | | 2018 | 4 | | 03/29/2014 by Silviano Cabrera, | | | | | | /12317 | | MD | | | | | | 0-065 | | | | | | | | / | + +------+--------+ +--------+--------+--------+ | Screw Brigade 5.5x25mm - | | | NUVASIVE - | | | 316397 | | [id number]: Qty: 2 on | | | NVSV | | | 5 / | | 03/29/2014 by Silviano Cabrera, | | | | | | | | MD | | | | | | | + +------+--------+ +--------+--------+--------+ | Screw Brigade 5.5x30mm - | | | NUVASIVE - | | | 050431 | | [id number]: Qty: 4 on | | | NVSV | | | 0 / / | | 03/29/2014 by Silviano Cabrera, | | | | | | | | MD | | | | | | | + +------+--------+ +--------+--------+--------+ | Cage Arnaldo Alifidel Allograft | | | NUVASIVE - | | 07/14/ | 121834 | | [id number] - | | | NVSV | | 2012 | / / | | [id number]: Qty: 1 on | | | | | | | | 03/29/2014 by Silviano Cabrera, | | | | | | | | MD | | | | | | | + +------+--------+ +--------+--------+--------+ | Screw Brigade 5.5x35mm - | | | NUVASIVE - | | | 975871 | | [id number]: Qty: 2 on | | | NVSV | | | / | | 03/29/2014 by Silviano Cabrera, | | | | | | | | MD | | | | | | | + +------+--------+ +--------+--------+--------+ | Allograft Block Extra Large | | N/A: | NUVASIVE - | | 09/27/ | [id number] | | Formagraft Large - | | Back | NVSV | | 2018 | 5 / | | [id number]: Qty: 1 on | | | | | | /FG-14 | | 03/29/2014 by Silviano Cabrera, | | | | | | 13 | | MD | | | | | | | + +------+--------+ +--------+--------+--------+ | Graft Sponge Kit Bone Infuse | | N/A: | MEDTRONIC - | | 08/27/ | [id number] | | Large 8ml - | | Back | MEDT | | 2016 | 0 / | | [id number]: Qty: 1 on | | | | | | /M1112 | | 03/29/2014 by Silviano Cabrera, | | | | | | 06AAY | | | | | | | | | + +------+--------+ +--------+--------+--------+ | Allograft Freeze Dried | | N/A: | LIFENET | | 11/13/ | [id number] | | Demineralized Cancellous Mix | | Spine | HEALTH - | | 2016 | T | | Ic Graft Chamber 15cc - | | Lumbar | LIFN | | | /41741 | | [id number]: Qty: | | | | | | 57-303 | | 1 on 03/31/2014 by Rick, | | | | | | 1 / | | MD Silviano | | | | | | | + +------+--------+ +--------+--------+--------+ | Graft Sponge Kit Bone Infuse | | N/A: | MEDTRONIC - | | 04/01/ | [id number] | | Medium 56ml - | | Spine | MEDT | | 2015 | 0 | | [id number]: Qty: 1 | | Lumbar | | | | /M1112 | | on 03/31/2014 by Rick, | | | | | | 05AAW | | MD Silviano | | | | | | / | + +------+--------+ +--------+--------+--------+ | Allograft Freeze Dried | | N/A: | LIFENET | | 11/01/ | [id number] | | Demineralized Cancellous Mix | | Spine | HEALTH - | | 2016 | T | | Ic Graft Chamber 15cc - | | Lumbar | LIFN | | | /93195 | | [id number]: Qty: | | | | | | 37-301 | | 1 on 03/31/2014 by Rick, | | | | | | 1 / | | MD Silviano | | | | | | | + +------+--------+ +--------+--------+--------+ | Screw Precept Shank Mod | | N/A: | NUVASIVE - | | | [id number] | | 7.5x50mm - [id number]: | | Spine | NVSV | | | 0 / / | | Qty: 4 on 03/31/2014 by | | Lumbar | | | | | | Silviano Cabrera MD | | | | | | | + +------+--------+ +--------+--------+--------+ | Screw Precept Shank Mod | | N/A: | NUVASIVE - | | | [id number] | | 6.5x50mm - [id number]: | | Spine | NVSV | | | 0 / / | | Qty: 2 on 03/31/2014 by | | Lumbar | | | | | | Silviano Cabrera MD | | | | | | | + +------+--------+ +--------+--------+--------+ | Screw Locking For 6.25mm Srini | | N/A: | NUVASIVE - | | | [id number] | | - [id number]: Qty: 6 | | Spine | NVSV | | | 1 / / | | on 03/31/2014 by Rick, | | Lumbar | | | | | | MD Silviano | | | | | | | + +------+--------+ +--------+--------+--------+ | Screw Tulip For 6.25mm Srini - | | N/A: | NUVASIVE - | | | 857179 | | [id number]: Qty: 6 on | | Spine | NVSV | | | 2 / / | | 03/31/2014 by Silviano Cabrera, | | Lumbar | | | | | | | | | | | | | + +------+--------+ +--------+--------+--------+ | Allograft Freeze Dried | | N/A: | LIFENET | | 11/08/ | [id number] | | Demineralized Cancellous Mix | | Spine | HEALTH - | | 2016 | T | | Ic Graft Chamber 15cc - | | Lumbar | LIFN | | | /[id number] | | [id number]: Qty: | | | | | | 98-303 | | 1 on 03/31/2014 by Rick, | | | | | | 9 / | | MD Silviano | | | | | | | + +------+--------+ +--------+--------+--------+ | Allograft Freeze Dried | | N/A: | LIFENET | | 08/16/ | [id number] | | Demineralized Cancellous Mix | | Spine | HEALTH - | | 2016 | T | | Ic Graft Chamber 10cc - | | Lumbar | LIFN | | | /98009 | | [id number]: Qty: | | | | | | 22-301 | | 1 on 03/31/2014 by Rick, | | | | | | 3 / | | MD Silviano | | | | | | | + +------+--------+ +--------+--------+--------+ | Allograft Freeze Dried | | N/A: | LIFENET | | 07/13/ | [id number] | | Demineralized Cancellous Mix | | Spine | HEALTH - | | 2017 | T | | Ic Graft Chamber 5cc - | | Lumbar | LIFN | | | /72358 | | [id number]: Qty: | | | | | | 40-301 | | 1 on 03/31/2014 by Rick, | | | | | | 1 / | | MD Silviano | | | | | | | + +------+--------+ +--------+--------+--------+ | Srini Spherx Dual Ball Ti Dbr | | N/A: | NUVASIVE - | | | [id number] | | Ii 42.5mm - | | Spine | NVSV | | | 5 / / | | [id number]: Qty: 2 on | | Lumbar | | | | | | 03/31/2014 by Silviano Cabrera, | | | | | | | | | | | | | | | + +------+--------+ +--------+--------+--------+ | Port Imp Mri Powerport 8fr - | | | BARD ACCESS | | 03/20/ | [id number] | | [id number]: Qty: 1 on | | | SYSTEMS - | | 2015 | 0 / | | 07/28/2014 by , | | | ELLEN | | | /[id number] | | Chalino uG MD, FACS at [facility] | | | | | | 003 | | [facility] | | | | | | | | CENTER | | | | | | | + +------+--------+ +--------+--------+--------+ | Mini TightropeImplanted: Qty: | | Right: | ARTHREX | | 11/18/ | [id number] | | 1 on 03/20/2015 by Randy, | | Hand | ARTHREX | | 2020 | 9DS / | | Giuliano Briones MD at [facility] | | | /[id number] | | [facility] | | | | | | [...] REFERENCE | | | | performed at [facility];[address] | | LAB | | | | [place] | | [facility] | | | | [address];[place] [address] | | LABORATORY | | + + + + + + + + | Specimen | + + | Blood | + + + + + + + | Performing | Address | City/State/Zipcode | Phone Number | | Organization | | | | + + + + + | REFERENCE LAB | [address] [place] [address] | [place] [address] | [phone] | | [facility] | Blvd[address] | | | | LABORATORY | | | | + + + + + | REFERENCE LAB | [address] [place] [address] | [place] [address] | | | [facility] | Blvd. | [...] LAB | | | | performed at [facility];[address] | | [facility] | | | | [place] | | LABORATORY | | | | Bl[address];[place] [address] | | | | | | | | | | + + + + + + + + | Specimen | + + | Blood | + + + + + + + | Performing | Address | City/State/Zipcode | Phone Number | | Organization | | | | + + + + + | REFERENCE LAB | [address] [place] [address] | [place] [address] | [phone] | | [facility] | Blvd. | | | | LABORATORY | | | | + + + + + | REFERENCE LAB | [address] [place] [address] | [place] [address] | | | [facility] | Blvd. | [...] REFERENCE | | | | performed at [facility];[address] | | LAB | | | | [place] | | [facility] | | | | [address];[place] [address] | | LABORATORY | | + + + + + + + + | Specimen | + + | Blood | + + + + + + + | Performing | Address | City/State/Zipcode | Phone Number | | Organization | | | | + + + + + | REFERENCE LAB | [address] | [place] [address] | [phone] | | [facility] | Blvd. | | | | LABORATORY | | | | + + + + + | REFERENCE LAB | [address] [address] | [place] [address] | | | [facility] | Blvd. | [...] | | | | | performed at [facility];[address] | | | | | | [facility] | | | | | | Blvd;[place] [address] | | | | | | | | | | + + + + + + + + | Specimen | + + | Blood | + + + + + + + | Performing | Address | City/State/Zipcode | Phone Number | | Organization | | | | + + + + + | REFERENCE LAB | [address] | [place] [address] | [phone] | | [facility] | Blvd. | | | | LABORATORY | | | | + + + + + | REFERENCE LAB | [address] | [place] [address] | | | [facility] | Blvd. | [...] | [employer] | MODA | [id number] | 06/01/19 | | | Medica | | | HEALTH | | 17-Pre | | | re | | | MDCR | | sent | | | | + +--------+ +--------+ +---------+--------+ | [employer] | [employer] | [id number] | 06/01/19 | | | Medica | | | HEALTH | | 17-12/ | | | re | | | MDCR | | 31/201 | | | | | | | | 9 | | | | + +--------+ +--------+ +---------+--------+ | [employer] | MODA | [id number] | | [phone] | | Medica | | MEDICAID HMO | HEALTH | | 012-Pr | 1 | | id | | | MDCD | | esent | | | | | | [place]MO [place] | | | | | | + +--------+ +--------+ +---------+--------+ | [employer] | MODA | [id number] | | [phone] | | Medica | | MEDICAID HMO [...] Mary | al/Fam | | 1945 | [phone] | [place], [place] | | | jana | | | 1 (Home) | [address] | + +--------+ +--------+ + + | Thea Carmona | Person | Self | [birth year] | [address] | | Mary | al/Fam | | 1945 | [phone] | [place], [place] | | | jana | | | 1 (Home) | [address] | + +--------+ +--------+ + + Advance Directives + + + + + | Type | Date Recorded | Patient | Explanation | | | | Wire Puller | | + + + + + | Power of | | | | | Middle School Reading Teacher | | | | + + + [...]
--- OUTSIDE RECORDS SUMMARY | ~2019-05-05 | XMS | Encounter Summary ---
Demographics + + + | Address | [address] | | | [place] [address] | + + + | Home Phone [...] [place] | | | | | [address] | | + + + + + Care Team Providers + +------+ + | Care Clerical Assigner Name | Role | Phone | + [...] + + | 09/20/ | Hospital | [facility] | Adelita Lu MD | Anxiety (Primary | | 2015 | Encounter | [facility] | [address] | Dx); Chronic pain; | | | | [facility] [address] | [place] | COPD (chronic | | | | [address] [place] | [address] | obstructive | | | | [place] [address] | [phone] | pulmonary disease) | | | | [phone] | | (HCC); Depression; | | | | | | Spinal stenosis in | | | | | | cervical region; | | | | | | Squamous cell | | | | | | carcinoma of lung, | | | | | | stage I, unspecified | | | | | | laterality ([facility]); | | | | | | Recurrent squamous | | | | | | cell carcinoma of | | | | | | lung, unspecified | | | | | | laterality ([facility]) | +--------+ + + + + Social [...] Lu MD - 09/20/2014 2:27 PM PDT .[facility] Hem-Onc Progress Note [facility] Patient name:Thea Carmona : 1945 Age: 69 y.o. CSN: [id number] Date of Service: 09/20/2014 Identifying Statement: Thea Carmona is a 69 y.o. female from [facility] with clinical stage II, non-small cell lung [...] lewis 2.CT-guided biopsy by interventional radiology at [facility] of the right lung massshows squamous [...] Dr. Mace , thoracic surgeon at [facility] for consideration of broncho scopy, right [...] - [place]) on prednisone and methotrexate, Dr. [facility] [...] mg by mouth Daily. RESPIRATORY THERAPY SUPPLIES [employer] ResMed S9 auto CPAP 5-9 cm H2O. Heater and Humidifier . All necessary supplies. AHI 11.6. Diagnosis Code(s)327.23, also has co morbid hypertension , history of stroke. Length of Need 99 months. Please send order to [facility]. RESPIRATORY THERAPY SUPPLIES [facility] Respironics autotitrating CPAP at 5-9 cm H2O [...] this chart may have been created with [employer] voice recognition software. Occasi onal wrong-word or [...] | 2018 | Visit | | [address] | | | | | | [facility] | | | | | | [place] [address] | | | | | | [phone] | | | | | | | | +--------+ + + + + | 06/08/ | Office | Physical Medicine | Rocky Santos, | | | 2019 | Visit | and Rehabilitation | MD [address] | | | | | | [place] | | | | | | [address] | | | | | | | | +--------+ + + + + | 06/16/ | Appointment | Pulmonology | Eveline Jaffe | | | 2019 | | | MD Nichole [address] | | | | | | [address] | | | | | | [place] [address] | | | | | | [phone] | | | | | | | | +--------+ + + + + | 06/16/ | Office | Pulmonology | Eveline Jaffe | | | 2019 | Visit | | MD Nichole Carter | | | | | | [address] [place] | | | | | | [place] [address] | | | | | | [phone] | | | | | | | | +--------+ + + + + | 08/24/ | Office | Cardiology | Anisha Lopez DO | | | 2019 | Visit | | [address] | | | | | | [place] | | | | | | [address] | | | | | | | [...]
--- OUTSIDE RECORDS SUMMARY | ~2019-05-05 | XMS | Encounter Summary ---
Demographics + + + | Address | [address] | | | [place] [address] | + + + | Home Phone [...] [place] | | | | | [address] | | + + + + + Care Team Providers + +------+ + | Care Fretted Instrument Inspector Name | Role | Phone | [...] | s, | [address] | [place] [address] | | | | | unspecified | [place], | Phone: | | | | | | [place] | [phone] | | | | | | [address] | Fax: | | | | | | Phone: | [phone] | | | | | | [phone] | | | | | | | Fax: | | | | | | | [phone] | | +--------+--------+ + + + + Encounter Details +--------+---------+ + + + | Date | Type | Department | Care Team | Description | +--------+---------+ + + + | 07/19/ | Office | [facility] [place] | Giuliano Padilla, | Trigger finger of | | 2019 | Visit | ORTHOPEDIC SURGERY | MD [address] | left thumb (Primary | | | | [address] | [place] | Dx); Trigger middle | | | | [place] | [address] | finger of left hand; | | | | [address] | | Trigger ring finger | | | | [phone] | | of left hand | +--------+---------+ [...] | | | | | [place] [address] | | | | | | [phone] | | | | | | | | +--------+ + + + + | 06/08/ | Office | Physical Medicine | Rocky Santos, | | | 2019 | Visit | and Rehabilitation | MD [address] | | | | | | [place] | | | | | | [address] | | | | | | | | +--------+ + + + + | 06/16/ | Appointment | Pulmonology | Eveline Jaffe | | | 2019 | | | MD [address] | | | | | | [place] | | | | | | [place] [address] | | | | | | [phone] | | | | | | | | +--------+ + + + + | 06/16/ | Office | Pulmonology | Eveline Jaffe | | | 2019 | Visit | | MD [address] | | | | | | [address] | | | | | | [place] [address] | | | | | | [phone] | | | | | | | | +--------+ + + + + | 08/24/ | Office | Cardiology | Anisha Lopez DO | | | 2019 | Visit | | [address] | | | | | | [place] | | | | | | [address] | | | | | | | [...]
--- OUTSIDE RECORDS SUMMARY | ~2019-05-05 | XMS | Encounter Summary ---
Demographics + + + | Address | [address] | | | [place] [address] | + + + | Home Phone [...] [place] | | | | | [address] | | + + + + + Care Team Providers + +------+ + | Care Flatbed Truck Driver Name | Role | Phone [...] Squamous | Jimmy C, DO | [address] [place] | | | | | cell | [address] | [place], | | | | | carcinoma of | [address] | [place] [address] | | | | | lung, stage | [place], | Phone: | | | | | I, right | [place] [address] | [phone] | | | | | (HCC) | Phone: | Fax: | | | | | Procedures | [phone] | [phone] | | | | | CT Treatment | Fax: | | | | | | Plan | [phone] | | | | | | Complex [...] Squamous | Jimmy C, DO | [address] [place] | | | | | cell | [address] | [place], | | | | | carcinoma of | [address] | [place] [address] | | | | | lung, stage | [place], | Phone: | | | | | I, right | [place] [address] | [phone] | | | | | (HCC) | Phone: | Fax: | | | | | Procedures | [phone] | [phone] | | | | | CT Treatment | Fax: | | | | | | Plan | [phone] | | | | | | Complex | | | +--------+--------+ + + + + Encounter Details +--------+ + + + + | Date | Type | Department | Care Team | Description | +--------+ + + + + | 07/26/ | Hospital | [facility] | Jimmy Banegas DO | 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 | Encounter | MED CTR [address] | [address] | carcinoma of lung, | | | | [place], | [place], [place] | stage I, right (HCC) | | | | [place] [address] | [address] | | | | | [phone] | | | +--------+ + + + [...] W | | | | | | [address] | | | | | | [place] [address] | | | | | | [phone] | | | | | | | | +--------+ + + + + | 06/08/ | Office | Physical Medicine | Rocky Santos, | | | 2019 | Visit | and Rehabilitation | MD [address] | | | | | | [place] | | | | | | [address] | | | | | | | | +--------+ + + + + | 06/16/ | Appointment | Pulmonology | Eveline Jaffe | | 2019 | | | MD [address] | | | | | | [address] | | | | | | [place] [address] | | | | | | [phone] | | | | | | | | +--------+ + + + + | 06/16/ | Office | Pulmonology | Eveline Jaffe | | | 2019 | Visit | | MD Raul [address] | | | | | | [address] [address] | | | | | | [place] [address] | | | | | | [phone] | | | | | | | | +--------+ + + + + | 08/24/ | Office | Cardiology | Anisha Lopez DO | | | 2019 | Visit | | [address] | | | | | | [place] | | | | | | [address] | | | | | | | [...]
--- OUTSIDE RECORDS SUMMARY | ~2019-05-05 | XMS | Encounter Summary ---
Demographics + + + | Address | [address] | | | [place] [address] | + + + | Home Phone [...] [place] | | | | | [address] | | + + + + + Care Team Providers + +------+ + | Care Manager Gyn Name | Role | Phone | + [...] + + | 09/01/ | Office | [facility] | Gurmeet Vargas | Tachypnea (Primary | | 2019 | Visit | PULMONARY [address] | MD [address] | Dx); Pneumonia of | | | | [place], | [place] | right lower lobe due | | | | [place] [address] | [place] [address] | to infectious | | | | [phone] | [phone] | organism (HCC); | | | | [...] Gurmeet Vargas MD - 09/01/2018 3:20 PM [id number] ex-smoker being admitted from pulmonary clinic with tachypnea from right lower lobe pneumonia, immunosuppression with steroid and methotrexate, incidental pulmonary embolism on warfarin, and metastatic lung ca ncer being controlled with afatinib Today's visit was scheduled longer ago. We had no recent records, so requested Dr. Dennis ortega notes from [place]. Most recent was July, and there was a excellent summary of h er treatment to date. A CT scan apparently showed pulmonary embolism, and the stump of the right lower lobe, so she was begun on anticoagulation and transition to warfarin. However, she became ill in July, and also had bleeding, and was admitted for August 17 to [facility] 24 at [facility] in [place]. We've requested those notes and they were [...] I learned from the patient and her senior clinical consultant Mirza and the discharge summary from August [...] she was admitted August 17, 2018 to [facility] in [place]. In my view, the infiltrate seen today in the right lower lung field could be consistent wit h PCP, which would also be consistent with the raising and lowering of steroid doses. She also was producing sputum and so we collected expectorated sputum and sent it to the [facility] for PCP immunofluorescence, Gram stain, and [...] spent 45 minutes, at least half in cucy-pz-asfn counseling. Word processing was used and I [...] | | | | | [place] [address] | | | | | | [phone] | | | | | | | | +--------+ + + + + | 06/08/ | Office | Physical Medicine | Rocky Santos, | | | 2019 | Visit | and Rehabilitation | [address] | | | | | | [place] | | | | | | [address] | | | | | | | | +--------+ + + + + | 06/16/ | Appointment | Pulmonology | Eveline Jaffe | | | 2019 | | | MD [address] | | | | | | [address] [place] | | | | | | [place] [address] | | | | | | [phone] | | | | | | | | +--------+ + + + + | 06/16/ | Office | Pulmonology | Eveline Jaffe | | | 2019 | Visit | | MD [address]ole Carter [address] | | | | | | [address] [place] | | | | | | [place] [address] | | | | | | [phone] | | | | | | | | +--------+ + + + + | 08/24/ | Office | Cardiology | Anisha Lopez DO | | | 2019 | Visit | | [address] | | | | | | [place] | | | | | | [address] | | | | | | | [...] + +---------+ + + Pneumocystis Jiroveci Ag [facility] (09/01/2018 4:08 PM PDT) + + + [...] + + | Performed at: 01 - [facility] [address], | REFERENCE LAB | | [place], [place] [id number] Novelties Sales Representative: Kodak Collins MD, Phone: | YAHIR VALDEZ | | [phone] | | + + + + + + + + | Performing | Address | City/State/Zipcode | Phone Number | | Organization | | | | + + + + + | REFERENCE LAB | [address] | [place] [address] | [phone] | | [facility] | [facility] | | | + + + [...] [address] | [place] | [phone] | | [facility] | | [address] | | | - LABORATORY | | [...]
--- OUTSIDE RECORDS SUMMARY | ~2019-05-05 | XMS | Encounter Summary ---
Demographics + + + | Address | [address] | | | [place] [address] | + + + | Home Phone [...] [place] | | | | | [address] | | + + + + + Care Team Providers + +------+ + | Care Machinist First Class Name | Role | Phone | + +------+ + | Caitlin Chino MD | PCP | | + +------+ + Encounter Details +--------+ + + + + | Date | Type | Department | Care Team | Description | +--------+ + + + + | 04/18/ | Abstract | [facility] | Provider, | | | 2019 | | PHYSIATRY [address] | MD [address] | | | | | [place], | [place] | | | | | [place] [address] | [place] [address] | | | | | [phone] | | | +--------+ + + + [...] | | | | | [place] [address] | | | | | | [phone] | | | | | | | | +--------+ + + + + | 06/08/ | Office | Physical Medicine | Rocky Santos, | | | 2019 | Visit | and Rehabilitation | MD [address] | | | | | | [place] | | | | | | [address] | | | | | | | | +--------+ + + + + | 06/16/ | Appointment | Pulmonology | Eveline Jaffe | | 2019 | | | MD [address] | | | | | | [address] | | | | | | [place] [address] | | | | | | [phone] | | | | | | | | +--------+ + + + + | 06/16/ | Office | Pulmonology | Eveline Jaffe | | | 2019 | Visit | | MD Raul [address] | | | | | | [address] | | | | | | [place] [address] | | | | | | [phone] | | | | | | | | +--------+ + + + + | 08/24/ | Office | Cardiology | Anisha Lopez DO | | | 2019 | Visit | | [address] | | | | | | [place] | | | | | | [address] | | | | | | | | +--------+ + + + + documented as of this encounter Visit Diagnoses Not on filedocumented in this encounter"
--- OUTSIDE RECORDS SUMMARY | ~2019-05-05 | XMS | Encounter Summary ---
Demographics + + + | Address | [address] | | | [place] [address] | + + + | Home Phone [...] [place] | | | | | [address] | | + + + + + Care Team Providers + +------+ + | Care Cardiac Cath Tech Name | Role | Phone | [...] + | 12/16/ | Office | [facility] | Giuliano Padilla, | Right hand pain | | 2018 | Visit | ORTHOPEDIC SURGERY | [address] | (Primary Dx); Left | | | | [address] | [place] | hand pain; Postop | | | | [place] | [address] | check | | | | [address] | | | | | | [phone] | | | +--------+---------+ + + + [...] of motion of her thumb and good adjunct instructor chemistry of her hand No tenderness and no [...] | 2018 | Visit | | [address] | | | | | | [facility] | | | | | | [place] [address] | | | | | | [phone] | | | | | | | | +--------+ + + + + | 06/08/ | Office | Physical Medicine | Rocky Santos, | | | 2019 | Visit | and Rehabilitation | MD Varela [address] | | | | | | [place] | | | | | | [address] | | | | | | | | +--------+ + + + + | 06/16/ | Appointment | Pulmonology | Eveline Jaffe | | | 2019 | | | MD [address] | | | | | | [address] [place] | | | | | | [place] [address] | | | | | | [phone] | | | | | | | | +--------+ + + + + | 06/16/ | Office | Pulmonology | Eveline Jaffe | | | 2019 | Visit | | MD [address] | | | | | | [address] [place] | | | | | | [place] [address] | | | | | | [phone] | | | | | | | | +--------+ + + + + | 08/24/ | Office | Cardiology | Anisha Lopez DO | | | 2019 | Visit | | [address] | | | | | | [place] | | | | | | [address] | | | | | | | [...]
--- OUTSIDE RECORDS SUMMARY | ~2019-05-05 | XMS | Encounter Summary ---
Demographics + + + | Address | [address] | | | [place] [address] | + + + | Home Phone [...] [place] | | | | | [address] | | + + + + + Care Team Providers + +------+ + | Care Heel Molder Name | Role | Phone | [...] Looney MD | | | | | [place], | | | | | | [place] [address] | | | | | | [phone] | | | +--------+ + + + [...] W | | | | | | [facility] | | | | | | [place] [address] | | | | | | [phone] | | | | | | | | +--------+ + + + + | 06/08/ | Office | Physical Medicine | Rocky Santos, | | | 2019 | Visit | and Rehabilitation | MD [address] | | | | | | [place] | | | | | | [address] | | | | | | | | +--------+ + + + + | 06/16/ | Appointment | Pulmonology | Eveline Jaffe | | | 2019 | | | MD Nichole Carter | | | | | | [address] [place] | | | | | | [place] [address] | | | | | | [phone] | | | | | | | | +--------+ + + + + | 06/16/ | Office | Pulmonology | Eveline Jaffe | | | 2019 | Visit | | MD Nichole Carter | | | | | | [address] [place] | | | | | | [place], [place] [address] | | | | | | [phone] | | | | | | | | +--------+ + + + + | 08/24/ | Office | Cardiology | Anisha Lopez DO | | 2019 | Visit | | [address] | | | | | | [place] | | | | | | [address] | | | | | | | | +--------+ + + + + documented as of this encounter Visit Diagnoses Not on filedocumented in this encounter"
--- OUTSIDE RECORDS SUMMARY | ~2019-05-05 | XMS | Encounter Summary ---
Demographics + + + | Address | [address] | | | [place] [address] | + + + | Home Phone [...] [place] | | | | | [address] | | + + + + + Care Team Providers + +------+ + | Care Oil Process Stillman Name | Role | Phone | + [...] Malignant | Jimmy C DO | [address] | | | | | neoplasm of | [address] | [place], | | | | | lower lobe | [address] | [place] [address] | | | | | of right | [place], | Phone: | | | | | lung (HCC) | [place] [address] | [phone] | | | | | Procedures | Phone: | Fax: | | | | | CT Chest w | [phone] | [phone] | | | | | Contrast | Fax: | | | | | | | [phone] | | +--------+--------+ + + + + [...] right lung (HCC) | | | | [place], | [address] | (Primary Dx) | | | | [place] [address] | | | | | | [phone] | | | +--------+ + + + [...] 05/30/ | Office | Rheumatology | Santosh Sumenr, | | | 2018 | Visit | | [address] | | | | | | [place] | | | | | | [place] [address] | | | | | | [phone] | | | | | | | | +--------+ + + + + | 06/08/ | Office | Physical Medicine | Rocky Santos, | | | 2019 | Visit | and Rehabilitation | MD [address] | | | | | | [place] | | | | | | [address] | | | | | | | | +--------+ + + + + | 06/16/ | Appointment | Pulmonology | Eveline Jaffe | | 2019 | | | MD [address] | | | | | | [address] | | | | | | [place] [address] | | | | | | [phone] | | | | | | | | +--------+ + + + + | 06/16/ | Office | Pulmonology | Eveline Jaffe | | | 2019 | Visit | | MD Raul [address] | | | | | | [address] | | | | | | [place] [address] | | | | | | [phone] | | | | | | | | +--------+ + + + + | 08/24/ | Office | Cardiology | Anisha Lopez DO | | | 2019 | Visit | | [address] | | | | | | [place] | | | | | | [address] | | | | | | | [...] [address] | [place] | [phone] | | [facility] | | [address] | | | - LABORATORY | | [...] mL/min/1.73m2 | [facility] | | | [place] | [...] [address] | [place] | [phone] | | [facility] | | [address] | | | - LABORATORY | | | | + + + + + documented in this encounter Visit Diagnoses + + | Diagnosis | + + | Malignant neoplasm of lower lobe of right lung (HCC) - Primary | + + documented in this encounter"
--- OUTSIDE RECORDS SUMMARY | ~2019-05-05 | XMS | Encounter Summary ---
Demographics + + + | Address | [address] | | | [place] [address] | + + + | Home Phone [...] [place] | | | | | [address] | | + + + + + Care Team Providers + +------+ + | Care Fast Food Shift Supervisor Name | Role | Phone [...] | | Pneumonia, | [place], | [address] | | | | | unspecified | Ayana B, | [place], | | | | | organism | MD [address] | [place] [address] | | | | | Malignant | [address] | Phone: | | | | | neoplasm of | [place], | [phone] | | | | | unspecified | [place] [address] | Fax: | | | | | part of | | [phone] | | | | | right | [...] | | Pneumonia, | [place], | [address] | | | | | unspecified | Ayana B, | [place], | | | | | organism | MD [address] | [place] [address] | | | | | Malignant | [address] | Phone: | | | | | neoplasm of | [place], | [phone] | | | | | unspecified | [place] [address] | Fax: | | | | | part of | | [phone] | | | | | right | [...] + + | 11/29/ | Hospital | [facility] | [place], | Recurrent squamous | | 2016 | Encounter | MED CTR CT [address] | Ayana Looney MD | cell carcinoma of | | | | [place], | | lung, right (HCC); | | | | [place] [address] | | Recurrent pneumonia | | | | [phone] | | | +--------+ + + + [...] W | | | | | | [facility] | | | | | | [place] [address] | | | | | | [phone] | | | | | | | | +--------+ + + + + | 06/08/ | Office | Physical Medicine | Rocky Santos, | | | 2019 | Visit | and Rehabilitation | [address] | | | | | | [place] | | | | | | [id number] | | | | | | | | +--------+ + + + + | 06/16/ | Appointment | Pulmonology | Eveline Jaffe | | | 2019 | | | MD [address] | | | | | | [address] [place] | | | | | | [place] [address] | | | | | | [phone] | | | | | | | | +--------+ + + + + | 06/16/ | Office | Pulmonology | Eveline Jaffe | | | 2019 | Visit | | MD Nichole Carter | | | | | | [address] [place] | | | | | | [place] [address] | | | | | | [phone] | | | | | | | | +--------+ + + + + | 08/24/ | Office | Cardiology | Ansiha Lopez DO | | 2019 | Visit | | [address] | | | | | | [place] | | | | | | [address] | | | | | | | [...] ST. | [address] | [place] | [phone] | | [facility] | | [address] | | | - IMAGING | | | | + + + + + documented in this encounter Visit Diagnoses + + | Diagnosis | + + | Recurrent squamous cell carcinoma of lung, right (HCC) | + + | Recurrent pneumonia Pneumonia, organism unspecified | + + documented in this encounter
--- OUTSIDE RECORDS SUMMARY | ~2019-05-05 | XMS | Encounter Summary ---
Demographics + + + | Address | [address] | | | [place] [address] | + + + | Home Phone [...] [place] | | | | | [address] | | + + + + + Care Team Providers + +------+ + | Care Collaborative Teacher Name | Role | Phone | [...] + + | 09/06/ | Hospital | [facility] | Adelita Lu MD | Recurrent squamous | | 2015 | Encounter | MED CTR MEDICAL | [address] | cell carcinoma of | | | | [facility] [address] | [place] | lung, unspecified | | | | [place] | [address] | laterality (HCC) | | | | [place] [address] | [phone] | (Primary Dx) | | | | [phone] | | | +--------+ + + + [...] 09/06/2014 9:35 AM PDT Hem-Onc Progress Note [facility] Patient name:Thea Carmona : 1945 Age: 69 y.o. CSN: [id number] Date of Service: 09/06/2014 Identifying Statement: Thea Carmona is a 69 y.o. female from [facility] with clinical stage II, non-small cell [...] lewis 2.CT-guided biopsy by interventional radiology at [facility] of the right lung massshows squamous [...] by Dr. Mace , thoracic surgeon at [facility] for consideration of broncho scopy, right [...] - [place]) on prednisone and methotrexate, Dr. Lewis, [place] Hyperlipidemia on simvastatin Hypertension on clonidine and [...] mouth Daily. RESPIRATORY THERAPY SUPPLIES [facility] Res[facility] S9 auto CPAP 5-9 cm H2O. Heater and Humidifier . All necessary supplies. AHI 11.6. Diagnosis Code(s)327.23, also has co morbid hypertension , history of stroke. Length of Need 99 months. Please send order to [facility]. RESPIRATORY THERAPY SUPPLIES [employer] Respironics autotitrating CPAP at 5-9 cm H2O [...] 0.00-0.10 K/uL Imaging: PET/CT scan June 2014: [facility]: Necrotic right lung lesion wit h [...] this chart may have been created with [employer] voice recognition software. Occasi onal wrong-word or [...] | 2018 | Visit | | [address] | | | | | | [facility] | | | | | | [place] [address] | | | | | | [phone] | | | | | | | | +--------+ + + + + | 06/08/ | Office | Physical Medicine | Rocky Santos, | | | 2019 | Visit | and Rehabilitation | MD Nichole [address] | | | | | | [place] | | | | | | [address] | | | | | | | | +--------+ + + + + | 06/16/ | Appointment | Pulmonology | Eveline Jaffe | | | 2019 | | | MD Nichole [address] | | | | | | [address] [place] | | | | | | [place] [address] | | | | | | [phone] | | | | | | | | +--------+ + + + + | 06/16/ | Office | Pulmonology | Eveline Jaffe | | | 2019 | Visit | | MD Nichole Carter | | | | | | [address] [place] | | | | | | [place] [address] | | | | | | [phone] | | | | | | | | +--------+ + + + + | 08/24/ | Office | Cardiology | Anisha Lopez DO | | | 2019 | Visit | | [address] | | | | | | [place] | | | | | | [address] | | | | | | | | +--------+ + + + + documented as of this encounter Visit Diagnoses + + | Diagnosis | + + | Recurrent squamous cell carcinoma of lung, unspecified laterality (HCC) - Primary | + + documented in this encounter
--- OUTSIDE RECORDS SUMMARY | ~2019-05-05 | XMS | Encounter Summary ---
Demographics + + + | Address | [address] | | | [place] [address] | + + + | Home Phone [...] [place] | | | | | [address] | | + + + + + Care Team Providers + +------+ + | Care Foreign Languages Department Chair Name | Role | Phone | [...] | s, | [address] | [place] [address] | | | | | unspecified | [place], | Phone: | | | | | | [place] | [phone] | | | | | | [address] | Fax: | | | | | | Phone: | [phone] | | | | | | [phone] | | | | | | | Fax: | | | | | | | [phone] | | +--------+--------+ + + + + Encounter Details +--------+---------+ + + + | Date | Type | Department | Care Team | Description | +--------+---------+ + + + | 07/19/ | Office | [facility] [place] | Giuliano Padilla, | Trigger finger of | | 2019 | Visit | ORTHOPEDIC SURGERY | MD [address] | left thumb (Primary | | | | [address] | [place] | Dx); Trigger middle | | | | [place] | [address] | finger of left hand; | | | | [address] | | Trigger ring finger | | | | [phone] | | of left hand | +--------+---------+ [...] | | | | | [place] [address] | | | | | | [phone] | | | | | | | | +--------+ + + + + | 06/08/ | Office | Physical Medicine | Rocky Santos, | | | 2019 | Visit | and Rehabilitation | MD [address] | | | | | | [place] | | | | | | [address] | | | | | | | | +--------+ + + + + | 06/16/ | Appointment | Pulmonology | Eveline Jaffe | | | 2019 | | | MD [address] | | | | | | [address] | | | | | | [place] [address] | | | | | | [phone] | | | | | | | | +--------+ + + + + | 06/16/ | Office | Pulmonology | Eveline Jaffe | | | 2019 | Visit | | MD [address]ole [address] | | | | | | [address] [place] | | | | | | [place] [address] | | | | | | [phone] | | | | | | | | +--------+ + + + + | 08/24/ | Office | Cardiology | Anisha Lopez DO | | | 2019 | Visit | | [address] | | | | | | [place] | | | | | | [address] | | | | | | | [...]
--- OUTSIDE RECORDS SUMMARY | ~2019-05-05 | XMS | Encounter Summary ---
Demographics + + + | Address | [address] | | | [place] [address] | + + + | Home Phone [...] [place] | | | | | [address] | | + + + + + Care Team Providers + +------+ + | Care Cheese Specialist Name | Role | Phone | [...] Looney MD | | | | | [place], | | | | | | [place] [address] | | | | | | [phone] | | | +--------+ + + + [...] | | | | | | [facility] | | | | | | [place] [address] | | | | | | [phone] | | | | | | | | +--------+ + + + + | 06/08/ | Office | Physical Medicine | Rocky Santos, | | | 2019 | Visit | and Rehabilitation | [address] | | | | | | [place] | | | | | | [address] | | | | | | | | +--------+ + + + + | 06/16/ | Appointment | Pulmonology | Eveline Jaffe | | | 2019 | | | MD [address] | | | | | | [address] [place] | | | | | | [place] [address] | | | | | | [phone] | | | | | | | | +--------+ + + + + | 06/16/ | Office | Pulmonology | Eveline Jaffe | | | 2019 | Visit | | MD [address] | | | | | | [address] [place] | | | | | | [place] [address] | | | | | | [phone] | | | | | | | | +--------+ + + + + | 08/24/ | Office | Cardiology | Anisha Lopez DO | | 2019 | Visit | | [address] | | | | | | [place] | | | | | | [address] | | | | | | | | +--------+ + + + + documented as of this encounter Visit Diagnoses + + | Diagnosis | + + | Shortness of breath on exertion - Primary Shortness of breath | + + documented in this encounter"
--- OUTSIDE RECORDS SUMMARY | ~2019-05-05 | XMS | Encounter Summary ---
Demographics + + + | Address | [address] | | | [place] [address] | + + + | Home Phone [...] [place] | | | | | [address] | | + + + + + Care Team Providers + +------+ + | Care Edge Cutting Machine Operator Name | Role | Phone [...] | | | | carcinoma of | [address] | [place] [address] | | | | | lung, right | [place], | Phone: | | | | | (HCC) | [place] [address] | [phone] | | | | | | | Fax: | | | | | | | [phone] | +--------+ + + + + + Reason for Visit +--------+ + | Reason | Comments | +--------+ + | COPD | | +--------+ + Encounter Details +--------+---------+ + + + | Date | Type | Department | Care Team | Description | +--------+---------+ + + + | [facility]17/ | [facility] [place] | Off[place], | COPD exacerbation | | 2014 | Visit | PULMONARY [address] | Ayana Looney MD | ([facility]); Recurrent | | | | [place], | | squamous cell | | | | [place] [address] | | carcinoma of lung, | | | | [phone] | | right ([facility]) | +--------+---------+ + + + Social History [...] CT scan. She had this biopsied in [place] by endobronchial ultraso und-transbronchial needle aspiration of [...] [facility]) on prednisone and methotrexate, Dr. Lewis [place] Hyperlipidemia on simvastatin Hypertension on clonidine and lisinopril Hypothyroidism GERD (gastroesophageal reflux disease) Stroke ([facility]) 2006 Stroke ([facility]) 2007 Squamous cell carcinoma of lung ([facility]) 07/2013 MARCE (obstructive sleep apnea) AHI 11.6 Sputum culture positive for Scopulariopsis species Recurrent squamous cell carcinoma of lung ([facility]) Past Surgical History Past Surgical History Procedure Laterality Date Hysterectomy Cholecystectomy Cervical spine surgery 2012 Bladder suspension Shoulder surgery Thumb surgery Shoulder surgery right shoulder Tongue surgery benign per pt Lung biopsy 07/21/13 right lower lobe Lobectomy 09/16/13 right lower lobe Back surgery 03/2014 Bronchoscopy 07/11/[address] biopsy, [facility] Dr. 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 Respiratory Therapy Supplies Solar [employer] Respironics autotitrating CPAP at 5-9 cm H2O for life time. Mask, headgear, chin strap, hoses, humidifier chamber and filters. Dx: 327.23 1 each 0 Respiratory Therapy Supplies Solar [employer] ResMed S9 auto CPAP 5-9 cm H2O. [...] made to ensure accuracy; however, inadvertent computerized duct cleaner errors may be pre sent. documented [...] | | | | | [place] [address] | | | | | | [phone] | | | | | | | | +--------+ + + + + | 06/08/ | Office | Physical Medicine | Rocky Santos, | | | 2019 | Visit | and Rehabilitation | MD [address] | | | | | | [place] | | | | | | [address] | | | | | | | | +--------+ + + + + | 06/16/ | Appointment | Pulmonology | Eveline Jaffe | | | 2019 | | | MD [address] | | | | | | [place] | | | | | | [place] [address] | | | | | | [phone] | | | | | | | | +--------+ + + + + | 06/16/ | Office | Pulmonology | Eveline Jaffe | | | 2019 | Visit | | MD [address]Rul [address] | | | | | | [place] [address] | | | | | | [place] [address] | | | | | | [phone] | | | | | | | | +--------+ + + + + | 08/24/ | Office | Cardiology | Anisha Lopez DO | | | 2019 | Visit | | [address] | | | | | | [place] | | | | | | [phone] | | | | | | | [...]
--- OUTSIDE RECORDS SUMMARY | ~2019-05-05 | XMS | Encounter Summary ---
Demographics + + + | Address | [address] | | | [place] [address] | + + + | Home Phone [...] [place] | | | | | [address] | | + + + + + Care Team Providers + +------+ + | Care Strip Mine Supervisor Name | Role | Phone | [...] | | | | | | [place] [address] | | | | | | [phone] | | | +--------+ + + + [...] | | | | | [place] [address] | | | | | | [phone] | | | | | | | | +--------+ + + + + | 06/08/ | Office | Physical Medicine | Rocky Santos, | | | 2019 | Visit | and Rehabilitation | [address] | | | | | | [place] | | | | | | [address] | | | | | | | | +--------+ + + + + | 06/16/ | Appointment | Pulmonology | Eveline Jaffe | | | 2019 | | | MD [address] | | | | | | [address] [place] | | | | | | [place] [address] | | | | | | [phone] | | | | | | | | +--------+ + + + + | 06/16/ | Office | Pulmonology | Eveline Jaffe | | | 2019 | Visit | | MD Nichole Carter | | | | | | [address] [place] | | | | | | [place] [address] | | | | | | [phone] | | | | | | | | +--------+ + + + + | 08/24/ | Office | Cardiology | Anisha Lopez DO | | | 2019 | Visit | | [address] | | | | | | [place] | | | | | | [address] | | | | | | | | +--------+ + + + + documented as of this encounter Visit Diagnoses + + | Diagnosis | + + | Chronic obstructive pulmonary disease, unspecified COPD type (HCC) - Primary | + + documented in this encounter"
--- OUTSIDE RECORDS SUMMARY | ~2019-05-05 | XMS | Encounter Summary ---
Demographics + + + | Address | [address] | | | [place] [address] | + + + | Home Phone [...] [place] | | | | | [address] | | + + + + + Care Team Providers + +------+ + | Care Lead Caster Name | Role | Phone | + [...] | | | | | [address] | [address] [place] | | | | | [place], [place] | [place] [address] | | | | | [address] | [phone] | | | | | [phone] | | | +--------+ + + + [...] +----+---+ + + | | 1 | Fontana | | | | 0 | 43-degrees [...] +----+---+ + + | | 1 | Font[place] off | | | | 1 | [...] 10/27/17 1400 by | | eral | [id number]-[id number] catheter system; | Yenifer Shelton RN | [...] | 2018 | Visit | | [address] | | | | | | [facility] | | | | | | [place] [address] | | | | | | [phone] | | | | | | | | +--------+ + + + + | 06/08/ | Office | Physical Medicine | Rocky Santos, | | | 2019 | Visit | and Rehabilitation | MD Nichole [address] | | | | | | [place] | | | | | | [address] | | | | | | | | +--------+ + + + + | 06/16/ | Appointment | Pulmonology | Eveline Jaffe | | 2019 | | | MD Nichole Carter | | | | | | [address] [place] | | | | | | [place] [address] | | | | | | [phone] | | | | | | | | +--------+ + + + + | 06/16/ | Office | Pulmonology | Eveline Jaffe | | | 2019 | Visit | | MD Nichole Carter | | | | | | [address] [place] | | | | | | [place] [address] | | | | | | [phone] | | | | | | | | +--------+ + + + + | 08/24/ | Office | Cardiology | Anisha Lopez DO | | | 2020 | Visit | | [address] | | | | | | [place] | | | | | | [address] | | | | | | | [...]
--- OUTSIDE RECORDS SUMMARY | ~2019-05-05 | XMS | Encounter Summary ---
Demographics + + + | Address | [address] | | | [place] [address] | + + + | Home Phone [...] [place] | | | | | [address] | | + + + + + Care Team Providers + +------+ + | Care Upholstery Bundler Name | Role | Phone | [...] | | | | CT Cervical | [address] | | | | | | Spine wo | Phone: | | | | | | Contrast | [phone] | | | | | | | Fax: | | | | | | | [phone] | | +--------+--------+ + + + + [...] | | | | CT Cervical | [address] | | | | | | Spine wo | Phone: | | | | | | Contrast | [phone] | | | | | | | Fax: | | | | | | | [phone] | | +--------+--------+ + + + + Encounter Details +--------+ + + + + | Date | Type | Department | Care Team | Description | +--------+ + + + + | 06/16/ | Hospital | [facility] | Vidal Dalton ARNP | Spinal stenosis in | | 2015 | Encounter | MED CTR CT [address] | [address] | cervical region | | | | [place], | [address] [place], | | | | | [place] [address] | [place] [address] | | | | | [phone] | [phone] | | | | | | | [...] | | | | | [place] [address] | | | | | | [phone] | | | | | | | | +--------+ + + + + | 06/08/ | Office | Physical Medicine | Rocky Santos, | | | 2019 | Visit | and Rehabilitation | MD [address] | | | | | | [place] | | | | | | [address] | | | | | | | | +--------+ + + + + | 06/16/ | Appointment | Pulmonology | Eveline Jaffe | | 2019 | | | MD Nichole Carter | | | | | | [address] | | | | | | [place] [address] | | | | | | [phone] | | | | | | | | +--------+ + + + + | 06/16/ | Office | Pulmonology | Eveline Jaffe | | | 2019 | Visit | | MD Raul [address] | | | | | | [address] | | | | | | [place] [address] | | | | | | [phone] | | | | | | | | +--------+ + + + + | 08/24/ | Office | Cardiology | Anisha Lopez DO | | | 2019 | Visit | | [address] | | | | | | [place] | | | | | | [address] | | | | | | | [...] + | MISCELLANEOUS LAB | | | [phone] | + +---------+ + + | MISCELANIOUS LAB | | | [phone] | + +---------+ + + documented in this encounter Visit Diagnoses + + | Diagnosis | + + | Spinal stenosis in cervical region | + + documented in this encounter"
--- OUTSIDE RECORDS SUMMARY | ~2019-05-05 | XMS | Encounter Summary ---
Demographics + + + | Address | [address] | | | [place] [address] | + + + | Home Phone [...] [place] | | | | | [address] | | + + + + + Care Team Providers + +------+ + | Care Administration Intern Name | Role | Phone | + +------+ + | Davis Ivan MD | PCP | | + +------+ + Encounter Details +--------+ + + + + | Date | Type | Department | Care Team | Description | +--------+ + + + + | 10/11/ | Hospital | [facility] | Adelita Lu MD | Recurrent squamous | | 2015 | Encounter | MED CTR MEDICAL | [address] [facility] | cell carcinoma of | | | | ONCOLOGY CLINIC [address] | [place], [place] | lung, right (HCC) | | | | [facility] | [address] | (Primary Dx); | | | | [place] [address] | [phone] | Pulmonary nodules; | | | | [phone] | | Squamous cell lung | | [...] 4:39 PM PDT .ws Hem-Onc Progress Note [facility] Patient name:Thea Carmona : 1945 Age: 69 y.o. CSN: [id number] Date of Service: 10/11/2014 Identifying Statement: Thea Carmona is a 69 y.o. female from [facility] with clinical stage II, non-small [...] by Dr. Mace , thoracic surgeon at [facility] for consideration of broncho scopy, [...] Taxol in August 2014 9. Admitted to [facility] on September 27, 2014 for right-sided [...] [facility] on simvastatin Hypertension on clonidine and lisinopril Hypothyroidism GERD (gastroesophageal reflux disease) Stroke ([facility]) 2007 Stroke ([facility]) 2008 Squamous cell carcinoma of lung ([facility] [...] mg by mouth Daily. RESPIRATORY THERAPY SUPPLIES [employer] ResMed S9 auto CPAP 5-9 cm H2O. Heater and Humidifier . All necessary supplies. AHI 11.6. Diagnosis Code(s)327.23, also has co morbid hypertension , history of stroke. Length of Need 99 months. Please send order to [facility]. RESPIRATORY THERAPY SUPPLIES [facility] Respironics autotitrating CPAP at 5-9 cm H2O [...] mL/min/1.73m2 imaging: CT scan was obtained from [facility] and results were reviewed which showed [...] | | | | | [place] [address] | | | | | | [phone] | | | | | | | | +--------+ + + + + | 06/08/ | Office | Physical Medicine | Rocky Santos, | | | 2019 | Visit | and Rehabilitation | MD [address]ole [address] | | | | | | [place] | | | | | | [address] | | | | | | | | +--------+ + + + + | 06/16/ | Appointment | Pulmonology | Eveline Jaffe | | 2019 | | | MD [address] | | | | | | [address] | | | | | | [place] [address] | | | | | | [phone] | | | | | | | | +--------+ + + + + | 06/16/ | Office | Pulmonology | Eveline Jaffe | | | 2019 | Visit | | MD Raul [address] | | | | | | [address] | | | | | | [place] [address] | | | | | | [phone] | | | | | | | | +--------+ + + + + | 08/24/ | Office | Cardiology | Anisha Loepz DO | | | 2019 | Visit | | [address] | | | | | | [place] | | | | | | [address] | | | | | | | [...] | 0.77 | 0.60 - 1.30 | [facility] | | | | | mg/dL | [facility] | | | | | [facility] | | | | | | CENTER - | | | | | | LABORATORY | | + + + + + + | eGFR if not | >60Comment: GLOMERULAR | >=60 | [facility] | | | | FILTRATION | mL/min/1.73m2 | [facility] | | | [facility] | RATE,ESTIMATED | | MEDICAL | | | | mL/min/1.99z9Bxch than | | CENTER - | | [...] + | [facility] | [address] | [place] | [phone] | | [facility] | | [address] | | | - LABORATORY | | [...] | [address] | [place], [place] | [phone] | | [facility] | | [address] | | | - LABORATORY | | [...]
--- OUTSIDE RECORDS SUMMARY | ~2019-05-05 | XMS | Encounter Summary ---
Demographics + + + | Address | [address] | | | [place] [address] | + + + | Home Phone [...] Team Providers + +------+ + | Care Superintendent Transmission Name | Role | Phone | + [...] | 10/02/ | Telephone | [facility] | Adelita Lu MD | Other | | 2014 | | MED CTR MEDICAL | [address] [facility] | | | | | ONCOLOGY CLINIC [address] | [place] | | | | | W [facility] | [address] | | | | | [place] [address] | [phone] | | | | | [phone] | | | +--------+ + + + [...] | | | | | [place] [address] | | | | | | [phone] | | | | | | | | +--------+ + + + + | 06/08/ | Office | Physical Medicine | Rocky Santos, | | | 2019 | Visit | and Rehabilitation | [address] | | | | | | [place] | | | | | | [address] | | | | | | | | +--------+ + + + + | 06/16/ | Appointment | Pulmonology | Eveline Jaffe | | | 2019 | | | MD [address] | | | | | | [address] [place] | | | | | | [place] [address] | | | | | | [phone] | | | | | | | | +--------+ + + + + | 06/16/ | Office | Pulmonology | Eveline Jaffe | | | 2019 | Visit | | MD [address] | | | | | | [address] [place] | | | | | | [place], [place] [address] | | | | | | [phone] | | | | | | | | +--------+ + + + + | 08/24/ | Office | Cardiology | Anisha Lopez DO | | | 2019 | Visit | | [address] | | | | | | [place] | | | | | | [address] | | | | | | | | +--------+ + + + + documented as of this encounter Visit Diagnoses Not on filedocumented in this encounter"
--- OUTSIDE RECORDS SUMMARY | ~2019-05-05 | XMS | Encounter Summary ---
Demographics + + + | Address | [address] | | | [place] [address] | + + + | Home Phone [...] [place] | | | | | [address] | | + + + + + Care Team Providers + +------+ + | Care Metal Engineering Process Worker Name | Role | Phone | [...] + + | 08/15/ | Hospital | [facility] | Adelita Lu MD | Recurrent squamous | | 2015 | Encounter | MED CTR MEDICAL | [address] | cell carcinoma of | | | | ONCOLOGY CLINIC [address] | [place] | lung, unspecified | | | | [place] | [address] | laterality (HCC) | | | | [place] [address] | [phone] | (Primary Dx) | | | | [phone] | | | +--------+ + + + [...] 08/15/2014 9:49 AM PDT Hem-Onc Progress Note [facility] Patient name:Thea Carmona : 1945 Age: 69 y.o. CSN: [id number] Date of Service: 08/15/2014 Identifying Statement: Thea [...] lewis 2.CT-guided biopsy by interventional radiology at [facility] of the right lung massshows squamous [...] [facility] on prednisone and methotrexate, Dr. Lewis [place] Hyperlipidemia on simvastatin Hypertension on clonidine and lisinopril Hypothyroidism GERD (gastroesophageal reflux disease) Stroke ([facility]) 2006 Stroke ([facility]) 2007 Squamous cell carcinoma of lung [facility] [...] mg by mouth Daily. RESPIRATORY THERAPY SUPPLIES Snipshot ResMed S9 auto CPAP 5-9 cm H2O. Heater and Humidifier . All necessary supplies. AHI 11.6. Diagnosis Code(s)327.23, also has co morbid hypertension , history of stroke. Length of Need 99 months. Please send order to [facility]. RESPIRATORY THERAPY SUPPLIES Snipshot Respironics autotitrating CPAP at 5-9 cm H2O [...] 0.00-0.10 K/uL Imaging: PET/CT scan June 2014: [facility] [...] this chart may have been created with NextDocs voice recognition software. Occasi onal wrong-word or [...] W | | | | | | [facility] | | | | | | [place] [address] | | | | | | [phone] | | | | | | | | +--------+ + + + + | 06/08/ | Office | Physical Medicine | Rocky Santos, | | | 2019 | Visit | and Rehabilitation | [address] | | | | | | [place] | | | | | | [address] | | | | | | | | +--------+ + + + + | 06/16/ | Appointment | Pulmonology | Eveline Jaffe | | | 2019 | | | MD Nichole Carter | | | | | | [address] [place] | | | | | | [place] [address] | | | | | | [phone] | | | | | | | | +--------+ + + + + | 06/16/ | Office | Pulmonology | Eveline Jaffe | | | 2019 | Visit | | MD Nichole Carter | | | | | | [address] [place] | | | | | | [place], [place] [address] | | | | | | [phone] | | | | | | | | +--------+ + + + + | 08/24/ | Office | Cardiology | Anisha Lopez DO | | | 2019 | Visit | | [address] | | | | | | [place] | | | | | | [address] | | | | | | | | +--------+ + + + + documented as of this encounter Visit Diagnoses + + | Diagnosis | + + | Recurrent squamous cell carcinoma of lung, unspecified laterality (HCC) - Primary | + + documented in this encounter
--- OUTSIDE RECORDS SUMMARY | ~2019-05-05 | XMS | Encounter Summary ---
Demographics + + + | Address | [address] | | | [place] [address] | + + + | Home Phone [...] [place] | | | | | [address] | | + + + + + Care Team Providers + +------+ + | Care Louver Door Assembler Name | Role | Phone | [...] | | | | | Procedures | [address] | | | | | | OFFICE VISIT | Phone: | | | | | | REGULAR | [phone] | | | | | | | Fax: | | | | | | | [phone] | | +--------+--------+ + + + + Encounter Details +--------+---------+ + + + | Date | Type | Department | Care Team | Description | +--------+---------+ + + + | 12/09/ | Office | [facility] [place] | Alfredenstein, | COPD (chronic | | 2013 | Visit | PULMONARY [address] | Ayana Looney MD | obstructive | | | | [place], | | pulmonary disease) | | | | [place] [address] | | (Primary Dx); MAR[place] | | | | [phone] | | (obstructive sleep | | | [...] and debility. She was discharged from [facility]. She tries to walk around the house quite a bit. She has not been using the CPAP, which she attributes to her hospital stay. She reports dave t she would like to get back on this. Past Medical History Past Medical History Diagnosis Date COPD (chronic obstructive pulmonary disease) ([facility]) on albuterol Spondylolisthesis of cervical region Spinal stenosis has tried cortisone injections Osteoporosis Depression Pneumonia 2008 hospitalized 5 days Rheumatoid arthritis(714.0) ([facility]) 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 Respiratory Therapy Supplies SessionM ResMed S9 auto CPAP 5-9 cm H2O. [...] Data: CPAP Data: Dates: 09/27-10/26/13 Machine type: Yunno S9 auto CPAP Home Health Company: In [...] but she is not being [facility]. I reviewed medication use today with them. [...] made to ensure accuracy; however, inadvertent computerized senior quality control inspector errors may be pre sent. Electronically signed by: Ayana Taylor MD 12/09/2013 14:43 documented in t his encounter Plan of Treatment +--------+ + + + + | Date | Type | Specialty | Care Team | Description | +--------+ + + + + | 05/30/ | Office | Rheumatology | Santosh Sumner, | | | 2018 | Visit | | [address] | | | | | | [facility] | | | | | | [place] [address] | | | | | | [phone] | | | | | | | | +--------+ + + + + | 06/08/ | Office | Physical Medicine | Rocky Santos, | | | 2019 | Visit | and Rehabilitation | MD Vare[address] | | | | | | [place] | | | | | | [address] | | | | | | | | +--------+ + + + + | 06/16/ | Appointment | Pulmonology | Eveline Jaffe | | | 2019 | | | MD [address] | | | | | | [address] [place] | | | | | | [place] [address] | | | | | | [phone] | | | | | | | | +--------+ + + + + | 06/16/ | Office | Pulmonology | Eveline Jaffe | | | 2019 | Visit | | MD [address]ole [address] | | | | | | [address] [place] | | | | | | [place] [address] | | | | | | [phone] | | | | | | | | +--------+ + + + + | 08/24/ | Office | Cardiology | Anisha Lopez DO | | | 2019 | Visit | | [address] | | | | | | [place], [place] | | | | | | [address] | | | | | | | [...]
--- OUTSIDE RECORDS SUMMARY | ~2019-05-05 | XMS | Encounter Summary ---
Demographics + + + | Address | [address] | | | [place] [address] | + + + | Home Phone [...] [place] | | | | | [address] | | + + + + + Care Team Providers + +------+ + | Care Exchange Engineer Name | Role | Phone | + +------+ + | Davis Ivan MD | PCP | | + +------+ + Encounter Details +--------+ + + + + | Date | Type | Department | Care Team | Description | +--------+ + + + + | 05/11/ | Hospital | [facility] | Offenstein, | Pulmonary abscess | | 2012 | Encounter | MED CTR XRAY [address] | Ayana Looney MD | ([facility]) | | | | [place] | | | | | | [place] [address] | | | | | | [phone] | | | +--------+ + + + [...] | 2019 | Visit | | [facility] [address] | | | | | | [facility] | | | | | | [place] [address] | | | | | | [phone] | | | | | | | | +--------+ + + + + | 06/08/ | Office | Physical Medicine | Rocky Santos, | | | 2019 | Visit | and Rehabilitation | MD [address] | | | | | | [place] | | | | | | [address] | | | | | | | | +--------+ + + + + | 06/16/ | Appointment | Pulmonology | Eveline Jaffe | | | 2019 | | | MD [address] | | | | | | [address] [place] | | | | | | [place] [address] | | | | | | [phone] | | | | | | | | +--------+ + + + + | 06/16/ | Office | Pulmonology | Eveline Jaffe | | | 2019 | Visit | | MD [address]ole [address] | | | | | | [address] [place] | | | | | | [place] [address] | | | | | | [phone] | | | | | | | | +--------+ + + + + | 08/24/ | Office | Cardiology | Anisha Lopez DO | | | 2019 | Visit | | [address] | | | | | | [place] | | | | | | [address] | | | | | | | [...] Performed At | + + + | [facility] | [place] | | Department [address] [place] [address] | [facility] | | [ rep [address]] [ rep [facility] | | [facility]] Signed | - IMAGING | | | | | Patient Name: THEA CARMONA Physician: | | | : 1945 Age: 67 Sex: F Unit #: [id number] | | | Exam Date: 05/11/13 [place] [facility] [place] | | | Report #: [id number] Page: | | | %(RAD)RES..mtdd.print.filter("pg") of %(RAD) | | | RES..mtdd.print.filter("tpg") | | | | | | Accession Number: [id number] | | | CHEST X-RAY CLINICAL HISTORY: [...] Transcribed Date/Time: 05/11/2013 | | | 13:38 Check Pilot: HENRIQUE <<Signature | | | on File>> | | | Matheus | | | MD Kang05/11/13 1420 <Electronically signed by Matheus Kapadia MD> | | | Matheus Kapadia MD 05/11/13 1328 Check Pilot: [email or web address] | | | Tjggretkmbxqw50/11/13 [id number] Ayana Taylor MD | | | | | + + + + + + + + | Performing | Address | City/State/Zipcode | Phone Number | | Organization | | | | + + + + + | [facility] | [address] | [place] | [phone] | | [facility] | | [address] | | | - IMAGING | | | | + + + + + documented in this encounter Visit Diagnoses + + | Diagnosis | + + | Pulmonary abscess (HCC) Abscess of lung | + + documented in this encounter
--- OUTSIDE RECORDS SUMMARY | ~2019-05-05 | XMS | Encounter Summary ---
Demographics + + + | Address | [address] | | | [place] [address] | + + + | Home Phone [...] [place] | | | | | [address] | | + + + + + Care Team Providers + +------+ + | Care Patient Intake Coordinator Name | Role | Phone [...] + + | 08/22/ | Office | [facility] [place] | [place], | COPD (chronic | | 2013 | Visit | PULMONARY [address] | Ayana Looney MD | obstructive | | | | [place], | | pulmonary disease) | | | | [place] [address] | | (Primary Dx); | | | | [phone] | | Squamous cell | | | [...] an appointment at [facility] to brass pickler the machine and learn how to use [...] types of CPAP. Your doctor or CPAP water restoration technician will help you decide whic h type is best for you: Basic CPAPkeeps the pressure constant all night long. A bilevel devicegives out more pressure when you breathe in and less when you breathe out. An autoCPAP deviceautomatically adjusts pressure throughout the night and in response to changes such as body position, sleep stage, and snoring. [id number] [facility], [address] [place] [address], [place] [address]. All rights reserve d. This information is [...] is apparently planning to present her at [facility]. She is currently taking prednisone at 10 [...] [facility] Hyperlipidemia on simvastatin Hypertension on clonidine and lisinopril Hypothyroidism GERD (gastroesophageal reflux disease) Stroke ([facility]) 2007 Stroke ([facility]) 2007 Fungus disease sputum culture positive for SCOPULARIOPSIS SPECIES Squamous cell carcinoma of lung ([facility]) 07/2013 Past Surgical History Past Surgical History Procedure Date Hysterectomy Cholecystectomy Cervical spine surgery 2012 Bladder suspension Shoulder surgery Thumb surgery Shoulder surgery right shoulder Tongue surgery benign per pt Lung biopsy 07/21/13 right lower lobe Social History: History Social History Marital Status: Spouse Name: N/A Number of Children: N/A Years of Education: N/A 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 CC: Davis Ivan MD, Courtney Lu MD, Jimmy Banegas DO Portions of this report were transcribed using voice recognition software. Every effort wa s made to ensure accuracy; however, inadvertent computerized hereditary cancer program coordinator errors may be pre sent. Electronically signed by: Ayana Taylor MD 08/22/2013 15:26 documented in t his encounter Plan of Treatment +--------+ + + + + | Date | Type | Specialty | Care Team | Description | +--------+ + + + + | 05/30/ | Office | Rheumatology | Santosh Sumner, | | | 2018 | Visit | | [address] | | | | | | [facility] | | | | | | [place] [address] | | | | | | [phone] | | | | | | | | +--------+ + + + + | 06/08/ | Office | Physical Medicine | Rocky Santos, | | | 2019 | Visit | and Rehabilitation | MD [address] | | | | | | [place] | | | | | | [address] | | | | | | | | +--------+ + + + + | 06/16/ | Appointment | Pulmonology | Eveline Jaffe | | | 2019 | | | MD [address] | | | | | | [address] [place] | | | | | | [place] [address] | | | | | | [phone] | | | | | | | | +--------+ + + + + | 06/16/ | Office | Pulmonology | Eveline Jaffe | | | 2019 | Visit | | MD [address] | | | | | | [address] [place] | | | | | | [place] [address] | | | | | | [phone] | | | | | | | | +--------+ + + + + | 08/24/ | Office | Cardiology | Anisha Lopez DO | | | 2019 | Visit | | [address] | | | | | | [place] | | | | | | [address] | | | | | | | [...]
--- OUTSIDE RECORDS SUMMARY | ~2019-05-05 | XMS | Encounter Summary ---
Demographics + + + | Address | [address] | | | [place] [address] | + + + | Home Phone [...] [place] | | | | | [address] | | + + + + + Care Team Providers + +------+ + | Care Pump Tender Name | Role | Phone | [...] + + | 08/22/ | Office | [facility] [place] | [place], | COPD (chronic | | 2013 | Visit | PULMONARY [address] | Ayana Looney MD | obstructive | | | | [place], | | pulmonary disease) | | | | [place] [address] | | (Primary Dx); | | | | [phone] | | Squamous cell | | | [...] an appointment at [facility] to waste picker the machine and learn how to [...] types of CPAP. Your doctor or CPAP health technician will help you decide whic h type is best for you: Basic CPAPkeeps the pressure constant all night long. A bilevel devicegives out more pressure when you breathe in and less when you breathe out. An autoCPAP deviceautomatically adjusts pressure throughout the night and in response to changes such as body position, sleep stage, and snoring. [id number] Britt[facility], [address] [place] [address], [place] [address]. All rights reserve d. This information is [...] is apparently planning to [facility] her at [facility]. She is currently taking prednisone at 10 [...] [facility] Hyperlipidemia on simvastatin Hypertension on clonidine and lisinopril Hypothyroidism GERD (gastroesophageal reflux disease) Stroke ([facility]) 2007 Stroke ([facility]) 2007 Fungus disease sputum culture positive for SCOPULARIOPSIS SPECIES Squamous cell carcinoma of lung ([facility]) 07/2013 Past Surgical History Past Surgical History Procedure Date Hysterectomy Cholecystectomy Cervical spine surgery 2012 Bladder suspension Shoulder surgery Thumb surgery Shoulder surgery right shoulder Tongue surgery benign per pt Lung biopsy 07/21/13 right lower lobe Social History: History Social History Marital Status: Spouse Name: N/A Number of Children: N/A Years of Education: N/A 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 CC: Davis Ivan MD, Courtney Lu MD, Jimmy Banegas DO Portions of this report were transcribed using voice recognition software. Every effort wa s made to ensure accuracy; however, inadvertent computerized bog cutter errors may be pre sent. Electronically signed by: Ayana Taylor MD 08/22/2013 15:26 documented in t his encounter Plan of Treatment +--------+ + + + + | Date | Type | Specialty | Care Team | Description | +--------+ + + + + | 05/30/ | Office | Rheumatology | Santosh Sumner, | | | 2018 | Visit | | [address] | | | | | | [facility] | | | | | | [place] [address] | | | | | | [phone] | | | | | | | | +--------+ + + + + | 06/08/ | Office | Physical Medicine | Rocky Santos, | | | 2019 | Visit | and Rehabilitation | MD [address] | | | | | | [place] | | | | | | [address] | | | | | | | | +--------+ + + + + | 06/16/ | Appointment | Pulmonology | Eveline Jaffe | | | 2019 | | | MD [address] | | | | | | [address] [place] | | | | | | [place] [address] | | | | | | [phone] | | | | | | | | +--------+ + + + + | 06/16/ | Office | Pulmonology | Eveline Jaffe | | | 2019 | Visit | | MD [address] | | | | | | [address] [place] | | | | | | [place] [address] | | | | | | [phone] | | | | | | | | +--------+ + + + + | 08/24/ | Office | Cardiology | Anisha Lopez DO | | | 2019 | Visit | | [address] | | | | | | [place] | | | | | | [address] | | | | | | | [...]
--- OUTSIDE RECORDS SUMMARY | ~2019-05-05 | XMS | Encounter Summary ---
Demographics + + + | Address | [address] | | | [place] [address] | + + + | Home Phone [...] [place] | | | | | [address] | | + + + + + Care Team Providers + +------+ + | Care Factory Supervisor Name | Role | Phone | [...] + + | 07/28/ | Telephone | [facility] | Chalino Chiu | Other (Pre-Op | | 2015 | | SURGERY [address] | MD Brittanie, FACS [address] | Orders) | | | | [place], [place] | [address] [facility] | | | | | [address] | [place] [address] | | | | | [phone] | [phone] | | | | | | | [...] | | | | | [place] [address] | | | | | | [phone] | | | | | | | | +--------+ + + + + | 06/08/ | Office | Physical Medicine | Rocky Santos, | | | 2019 | Visit | and Rehabilitation | [address] | | | | | | [place] | | | | | | [address] | | | | | | | | +--------+ + + + + | 06/16/ | Appointment | Pulmonology | Eveline Jaffe | | | 2019 | | | MD [address] | | | | | | [address] [place] | | | | | | [place] [address] | | | | | | [phone] | | | | | | | | +--------+ + + + + | 06/16/ | Office | Pulmonology | Eveline Jaffe | | | 2019 | Visit | | MD [address] | | | | | | [address] [place] | | | | | | [place] [address] | | | | | | [phone] | | | | | | | | +--------+ + + + + | 08/24/ | Office | Cardiology | Anisha Lopez DO | | | 2019 | Visit | | [address] | | | | | | [place] | | | | | | [address] | | | | | | | | +--------+ + + + + documented as of this encounter Visit Diagnoses Not on filedocumented in this encounter"
--- OUTSIDE RECORDS SUMMARY | ~2019-05-05 | XMS | Encounter Summary ---
Demographics + + + | Address | [address] | | | [place] [address] | + + + | Home Phone [...] [place] | | | | | [address] | | + + + + + Care Team Providers + +------+ + | Care Head Chef Name | Role | Phone | [...] | bronchitis with | | | | [place], | [address] [place] | pulmonary emphysema | | | | [place] [address] | [place] [address] | (Primary Dx) | | | | [phone] | [phone] | | | | | | | [...] | | | | | [place] [address] | | | | | | [phone] | | | | | | | | +--------+ + + + + | 06/08/ | Office | Physical Medicine | Rocky Santos, | | | 2019 | Visit | and Rehabilitation | [address] | | | | | | [place] | | | | | | [address] | | | | | | | | +--------+ + + + + | 06/16/ | Appointment | Pulmonology | Eveline Jaffe | | | 2019 | | | MD [address] | | | | | | [address] [place] | | | | | | [place] [address] | | | | | | [phone] | | | | | | | | +--------+ + + + + | 06/16/ | Office | Pulmonology | Eveline Jaffe | | | 2019 | Visit | | MD [address] | | | | | | [address] [place] | | | | | | [place] [address] | | | | | | [phone] | | | | | | | | +--------+ + + + + | 08/24/ | Office | Cardiology | Anisha Lopez DO | | | 2019 | Visit | | [address] | | | | | | [place] | | | | | | [address] | | | | | | | | +--------+ + + + + documented as of this encounter Visit Diagnoses + + | Diagnosis | + + | 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
--- OUTSIDE RECORDS SUMMARY | ~2019-05-05 | XMS | Encounter Summary ---
Demographics + + + | Address | [address] | | | [place] [address] | + + + | Home Phone [...] [place] | | | | | [address] | | + + + + + Care Team Providers + +------+ + | Care Derrick Worker [employer] Name | Role | Phone | + [...] | | | [place] | | [place] [address] | | | | | finger, left | | Phone: | | | | | ring finger | | [phone] | | | | | [place] | | Fax: | | | | | middle | | [phone] | | | | | finger of | | | | | | | left hand | | | | | | | Procedures | | | | | | | [place] INCISE | | | | | | [...] + + | 09/28/ | Hospital | [facility] | Giuliano Padilla, | Trigger finger of | | 2018 | Encounter | MED CTR OR INTRA OP | MD [address] | left thumb; [place] | | | | [address] | [place], [place] | finger, left ring | | | | [place], [place] | [address] | finger; [place] | | | | [address] | | middle finger of | | | | [phone] | | left hand | +--------+ + [...] | | | | | [place] [address] | | | | | | [phone] | | | | | | | | +--------+ + + + + | 06/08/ | Office | Physical Medicine | Rocky Santos, | | | 2019 | Visit | and Rehabilitation | MD [address] | | | | | | [place] | | | | | | [address] | | | | | | | | +--------+ + + + + | 06/16/ | Appointment | Pulmonology | Eveline Jaffe | | 2019 | | | MD [address] | | | | | | [address] [place] | | | | | | [place] [address] | | | | | | [phone] | | | | | | | | +--------+ + + + + | 06/16/ | Office | Pulmonology | Eveline Jaffe | | | 2019 | Visit | | MD Ra[address] | | | | | | [address] [place] | | | | | | [place] [address] | | | | | | [phone] | | | | | | | | +--------+ + + + + | 08/24/ | Office | Cardiology | Anisha Lopez DO | | | 2019 | Visit | | [address] | | | | | | [place] | | | | | | [address] | | | | | | | [...] bronchitis with pulmonary emphysema | + + | Paroxysmal atrial fibrillation (HCC) Atrial fibrillation | + + documented [...]
--- OUTSIDE RECORDS SUMMARY | ~2019-05-05 | XMS | Encounter Summary ---
Demographics + + + | Address | [address] | | | [place] [address] | + + + | Home Phone [...] [place] | | | | | [address] | | + + + + + Care Team Providers + +------+ + | Care Insurance Law Specialist Name | Role | Phone | + +------+ + | Davis Ivan MD | PCP | | + +------+ + Encounter Details +--------+ + + + + | Date | Type | Department | Care Team | Description | +--------+ + + + + | 03/17/ | Hospital | [facility] | Conversion | | | 2013 | Encounter | [facility] | Transaction, | | | | | CLINIC [address] | Provider Unknown | | | | | [place], [place] | | | | | | [address] | (Fax) | | | | | [phone] | | | +--------+ + + + [...] | | | | | [place] [address] | | | | | | [phone] | | | | | | | | +--------+ + + + + | 06/08/ | Office | Physical Medicine | Rocky Santos, | | | 2019 | Visit | and Rehabilitation | MD [address] | | | | | | [place] | | | | | | [address] | | | | | | | | +--------+ + + + + | 06/16/ | Appointment | Pulmonology | Eveline Jaffe | | 2019 | | | MD [address] | | | | | | [address] | | | | | | [place] [address] | | | | | | [phone] | | | | | | | | +--------+ + + + + | 06/16/ | Office | Pulmonology | Eveline Jaffe | | | 2019 | Visit | | MD Raul [address] | | | | | | [address] [place] | | | | | | [place] [address] | | | | | | [phone] | | | | | | | | +--------+ + + + + | 08/24/ | Office | Cardiology | Anisha Lopez DO | | | 2019 | Visit | | [address] | | | | | | [place] | | | | | | [address] | | | | | | | [...] CHEST 2 VIEW FRONTAL | | AND VXINRTD2803/17/2014 2:44 PM HISTORY:68 years. Female. History of [...] | | | Patient | performed [place] [facility] [place] | | LAB | | | | [address];[place] | | | | | | [address] | | | | + + + [...] | | | | | performed at [facility] [place];[address] | | | | | | [address];[place], [place] | | | | | | [address] | | | | + + + [...] | | | | | [place] [address] | | | | + + + + + + | RED CELL | 4.25Comment: Testing | 3.70 - 5.10 | EXTERNAL | | | COUNT | performed at [facility], [address] | M/uL | LAB | | | | [address], | | | | | | [place] [address] | | | | + + + + + + | Hgb | 12.8Comment: Testing | 11.3 - 15.5 | EXTERNAL | | | | performed at [facility], [address] | g/dL | LAB | | | | [address], | | | | | | [place] [address] | | | | + + + + + + | Hematocrit, | 39.4Comment: Testing | 34.0 - 46.0 % | EXTERNAL | | | POC | performed at [facility], [address] | | LAB | | | | [address], | | | | | | [place] [address] | | | | + + + + + + | MCV | 92.6Comment: Testing | 80.0 - 100.0 fl | EXTERNAL | | | | performed at [facility], [address] | | LAB | | | | [address], | | | | | | [place] [address] | | | | + + + + + + | MCH | 30.0Comment: Testing | 27.0 - 34.0 pg | EXTERNAL | | | | performed at [facility], [address] | | LAB | | | | [address], | | | | | | [place] [address] | | | | + + + + + + | MCHC | 32.4Comment: Testing | 32.0 - 35.5 | EXTERNAL | | | | performed at [facility], [address] | g/dL | LAB | | | | [address], | | | | | | [place] [address] | | | | + + + + + + | RDW-CV | 67.4 (H)Comment: Testing | 37 - 53 fl | EXTERNAL | | | | performed at [facility], [address] | | LAB | | | | [address], | | | | | | [place] [address] | | | | + + + + + + | Platelet | 205Comment: Testing | 150 - 400 K/uL | EXTERNAL | | | Count | performed at [facility], [address] | | LAB | | | Plasma | [address], | | | | | | [place] [address] | | | | + + + + + + | MPV | 8.1Comment: Testing | fl | EXTERNAL | | | | performed at [facility], [address] | | LAB | | | | [address], | | | | | | [place] [address] | | | | + + + + + + | Differentia | AUTOMATEDComment: | | EXTERNAL | | | l Type | Testing performed at | | LAB | | | | [facility], [address] | | | | | | [place] | | | | | | [address] | | | | + + + + + + | % Segmented | 80.6Comment: Testing | % | EXTERNAL | | | | performed at [facility], [address] | | LAB | | | Neutrophils | [address], | | | | | | [place] [address] | | | | + + + + + + | % | 11.0Comment: Testing | % | EXTERNAL | | | Lymphocytes | performed at [facility], [address] | | LAB | | | | [address], | | | | | | [place], [place] [address] | | | | + + + + + + | % Monocytes | 6.9Comment: Testing | % | EXTERNAL | | | | performed at [facility], [address] | | LAB | | | | [address], | | | | | | [place], [place] [address] | | | | + + + + + + | % | 0.7Comment: Testing | % | EXTERNAL | | | Eosinophils | performed at [facility], [address] | | LAB | | | | [address], | | | | | | [place] [address] | | | | + + + + + + | % Basophils | 0.8Comment: Testing | % | EXTERNAL | | | | performed at [facility], [address] | | LAB | | | | [address], | | | | | | [place] [address] | | | | + + + + + + | Absolute | 5.7Comment: Testing | 1.9 - 7.4 K/uL | EXTERNAL | | | Segmented | performed at [facility], [address] | | LAB | | | Neutrophils | [address], | | | | | | [place] [address] | | | | + + + + + + | Absolute | 0.8 (L)Comment: Testing | 1.0 - 3.9 K/uL | EXTERNAL | | | Lymphocytes | performed at [facility], [address] | | LAB | | | | [address], | | | | | | [place] [address] | | | | + + + + + + | Absolute | 0.5Comment: Testing | 0 - 0.8 K/uL | EXTERNAL | | | Monocytes | performed at [facility], [address] | | LAB | | | | [address], | | | | | | [place] [address] | | | | + + + + + + | Absolute | 0.0Comment: Testing | 0 - 0.5 K/uL | EXTERNAL | | | Eosinophils | performed at [facility], [address] | | LAB | | | | [address], | | | | | | [place] [address] | | | | + + + + + + | Absolute | 0.1Comment: Testing | 0 - 0.1 K/uL | EXTERNAL | | | Basophils | performed at [facility], [address] | | LAB | | | | [address], | | | | | | [place] [address] | | | | + + + + + + | RBC | 3+Comment: ANISONORMAL | | EXTERNAL | | | Morphology | PLT MORPHTesting | | LAB | | | | performed at [facility], [address] | | | | | | [address], | | | | | | [place] [address] | | | | | | | [...] | | | | | [place] [address] | | | | + + + + + + | K | 4.2Comment: Testing | 3.5 - 4.9 | EXTERNAL | | | | performed at [facility], [address] | mmol/L | LAB | | | | [address], | | | | | | [place] [address] | | | | + + + + + + | Cl | 105Comment: Testing | 99 - 109 mmol/L | EXTERNAL | | | | performed at [facility], [address] | | LAB | | | | [address], | | | | | | [place] [address] | | | | + + + + + + | CO2 | 29Comment: Testing | 23 - 32 mmol/L | EXTERNAL | | | | performed at [facility], [address] | | LAB | | | | [address], | | | | | | [place] [address] | | | | + + + + + + | Anion Gap | 8Comment: Testing | 5 - 20 mmol/L | EXTERNAL | | | | performed at [facility], [address] | | LAB | | | | [address], | | | | | | [place] [address] | | | | + + + + + + | Glucose, | 98Comment: Testing | 65 - 99 mg/dL | EXTERNAL | | | Fasting | performed at [facility], [address] | | LAB | | | | [address], | | | | | | [place] [address] | | | | + + + + + + | BUN | 10Comment: Testing | 8 - 25 mg/dL | EXTERNAL | | | | performed at [facility], [address] | | LAB | | | | [address], | | | | | | [place] [address] | | | | + + + + + + | Creatinine | 0.85Comment: Testing | 0.50 - 1.00 | EXTERNAL | | | | performed at [facility], [address] | mg/dL | LAB | | | | [address], | | | | | | [place] [address] | | | | + + + + + + | BUN/Creatin | 12Comment: Testing | | EXTERNAL | | | ine Ratio | performed at [facility], [address] | | LAB | | | | [address], | | | | | | [place] [address] | | | | + + + + + + | Calcium | 9.6Comment: Testing | 8.5 - 10.2 | EXTERNAL | | | | performed at [facility], [address] | mg/dL | LAB | | | | [address], | | | | | | [place] [address] | | | | + + + [...] Claudio, | | | | | | [place] [address] | | | | + + + [...] EXTERNAL LAB | | Testing performed at [address];[place] [address] MRSA PCR | | | NEGATIVE Testing performed at | | | [address];[place] [address] | | + + + + +---------+ + + | Performing | Address | City/State/Zipcode | Phone Number | | Organization | | | | + +---------+ + + | EXTERNAL LAB | | | | + +---------+ + + documented in this encounter Visit Diagnoses Not on filedocumented in this encounter"
--- OUTSIDE RECORDS SUMMARY | ~2019-05-05 | XMS | Encounter Summary ---
Demographics + + + | Address | [address] | | | [place] [address] | + + + | Home Phone [...] [place] | | | | | [address] | | + + + + + Care Team Providers + +------+ + | Care Television Production Assistant Name | Role | Phone | [...] | | | hand, | | [place] [address] | | | | | unspecified | | Phone: | | | | | osteoarthrit | | [phone] | | | | | is type | | Fax: | | | | | Osteoarthrit | | [phone] | | | | | is of [...] + + | 03/20/ | Surgery | [facility] | Giuliano Padilla, | Left [facility]st [facility] | | 2014 | | MED CTR OR INTRA OP | MD [facility] | Arthroplasty | | | | [address] | [place] | | | | | [place] | [address] | | | | | [address] | | | | | | [phone] | | | +--------+---------+ + + + [...] | | | | | [place] [address] | | | | | | [phone] | | | | | | | | +--------+ + + + + | 06/08/ | Office | Physical Medicine | Rocky Santos, | | | 2019 | Visit | and Rehabilitation | MD [address] | | | | | | [place] | | | | | | [address] | | | | | | | | +--------+ + + + + | 06/16/ | Appointment | Pulmonology | Eveline Jaffe | | 2019 | | | MD [address] | | | | | | [address] [place] | | | | | | [place] [address] | | | | | | [phone] | | | | | | | | +--------+ + + + + | 06/16/ | Office | Pulmonology | Eveline Jaffe | | | 2019 | Visit | | MD [address] | | | | | | [address] [place] | | | | | | [place] [address] | | | | | | [phone] | | | | | | | | +--------+ + + + + | 08/24/ | Office | Cardiology | Anisha Lopez DO | | 2019 | Visit | | [address] | | | | | | [place] | | | | | | [address] | | | | | | | [...]
--- OUTSIDE RECORDS SUMMARY | ~2019-05-05 | XMS | Encounter Summary ---
Demographics + + + | Address | [address] | | | [place] [address] | + + + | Home Phone [...] [place] | | | | | [address] | | + + + + + Care Team Providers + +------+ + | Care Business Banking Manager Name | Role | Phone | [...] + + | 01/20/ | Refill | [facility] | Abeba Douglas MD | Medication Refill | | 2019 | | RHEUMATOLOGY [address] | | | | | [address] | [address], [place] | | | | | [place], [place] | [address] | | | | | [address] | | | | | | [phone] | | | +--------+--------+ + + + [...] | | | | | [place] [address] | | | | | | [phone] | | | | | | | | +--------+ + + + + | 06/08/ | Office | Physical Medicine | Rocky Santos, | | | 2019 | Visit | and Rehabilitation | [address] | | | | | | [place] | | | | | | [address] | | | | | | | | +--------+ + + + + | 06/16/ | Appointment | Pulmonology | Eveline Jaffe | | 2019 | | | MD [address] | | | | | | [address] | | | | | | [place] [address] | | | | | | [phone] | | | | | | | | +--------+ + + + + | 06/16/ | Office | Pulmonology | Eveline Jaffe | | | 2019 | Visit | | MD [address] | | | | | | [address] | | | | | | [place] [address] | | | | | | [phone] | | | | | | | | +--------+ + + + + | 08/24/ | Office | Cardiology | Anisha Lopez DO | | 2019 | Visit | | [address] | | | | | | [place] | | | | | | [address] | | | | | | | | +--------+ + + + + documented as of this encounter Visit Diagnoses Not on filedocumented in this encounter"
--- OUTSIDE RECORDS SUMMARY | ~2019-05-05 | XMS | Encounter Summary ---
Demographics + + + | Address | [address] | | | [place] [address] | + + + | Home Phone [...] [place] | | | | | [address] | | + + + + + Care Team Providers + +------+ + | Care Gold Wheel Blocker And Polisher Name | Role | Phone | + +------+ + | Davis Ivan MD | PCP | | + +------+ + Encounter Details +--------+ + + + + | Date | Type | Department | Care Team | Description | +--------+ + + + + | 06/14/ | Hospital | [facility] | Conversion | Pain | | 2014 | Encounter | CONVERSION [address] | Transaction, | | | | | [address] | Provider Unknown | | | | | [place] | [phone] | | | | | [address] | | | | | | [phone] | | | +--------+ + + + [...] | 2018 | Visit | | [address] | | | | | | [address] | | | | | | [place] [address] | | | | | | [phone] | | | | | | | | +--------+ + + + + | 06/08/ | Office | Physical Medicine | Rocky Santos, | | | 2019 | Visit | and Rehabilitation | MD [address] | | | | | | [place] | | | | | | [address] | | | | | | | | +--------+ + + + + | 06/16/ | Appointment | Pulmonology | Eveline Jaffe | | | 2019 | | | MD [address] | | | | | | [address] | | | | | | [place] [address] | | | | | | [phone] | | | | | | | | +--------+ + + + + | 06/16/ | Office | Pulmonology | Eveline Jaffe | | | 2019 | Visit | | MD [address] | | | | | | [address] | | | | | | [place] [address] | | | | | | [phone] | | | | | | | | +--------+ + + + + | 08/24/ | Office | Cardiology | Anisha Lopez DO | | | 2019 | Visit | | [address] | | | | | | [place], [place] | | | | | | [address] | | | | | | | [...]
--- OUTSIDE RECORDS SUMMARY | ~2019-05-05 | XMS | Encounter Summary ---
Demographics + + + | Address | [address] | | | [place] [address] | + + + | Home Phone [...] [place] | | | | | [address] | | + + + + + Care Team Providers + +------+ + | Care Director Pharmaceutical Name | Role | Phone | + [...] | 09/26/ | Telephone | [facility] | Adelita Lu MD | Other | | 2014 | | MED CTR MEDICAL | [address] [facility] | | | | | ONCOLOGY CLINIC [address] | [place] | | | | | [facility] | [address] | | | | | [place] [address] | [phone] | | | | | [phone] | | | +--------+ + + + [...] | | | | [facility] | | | | | | [place] [address] | | | | | | [phone] | | | | | | | | +--------+ + + + + | 06/08/ | Office | Physical Medicine | Rocky Santos, | | | 2019 | Visit | and Rehabilitation | [address] | | | | | | [place] | | | | | | [address] | | | | | | | | +--------+ + + + + | 06/16/ | Appointment | Pulmonology | Eveline Jaffe | | | 2019 | | | MD [address] | | | | | | [address] | | | | | | [place] [address] | | | | | | [phone] | | | | | | | | +--------+ + + + + | 06/16/ | Office | Pulmonology | Eveline Jaffe | | | 2019 | Visit | | MD [address] | | | | | | [address] | | | | | | [place], [place] [address] | | | | | | [phone] | | | | | | | | +--------+ + + + + | 08/24/ | Office | Cardiology | Anisha Lopez DO | | | 2019 | Visit | | [address] | | | | | | [place] | | | | | | [address] | | | | | | | | +--------+ + + + + documented as of this encounter Visit Diagnoses Not on filedocumented in this encounter"
--- OUTSIDE RECORDS SUMMARY | ~2019-05-05 | XMS | Encounter Summary ---
Demographics + + + | Address | [address] | | | [place] [address] | + + + | Home Phone [...] [place] | | | | | [address] | | + + + + + Care Team Providers + +------+ + | Care Stereotype Finisher Name | Role | Phone | [...] | | | | | | [place] [address] | | | | | | [phone] | | | +--------+ + + + [...] | | | | | [place] [address] | | | | | | [phone] | | | | | | | | +--------+ + + + + | 06/08/ | Office | Physical Medicine | Rocky Santos, | | | 2019 | Visit | and Rehabilitation | MD [address] | | | | | | [place] | | | | | | [address] | | | | | | | | +--------+ + + + + | 06/16/ | Appointment | Pulmonology | Eveline Jaffe | | 2019 | | | MD [address] | | | | | | [address] | | | | | | [place] [address] | | | | | | [phone] | | | | | | | | +--------+ + + + + | 06/16/ | Office | Pulmonology | Eveline Jaffe | | | 2019 | Visit | | MD [address] | | | | | | [address] | | | | | | [place] [address] | | | | | | [phone] | | | | | | | | +--------+ + + + + | 08/24/ | Office | Cardiology | Anisha Lopez DO | | | 2019 | Visit | | [address] | | | | | | [place] | | | | | | [phone] | | | | | | | | +--------+ + + + + documented as of this encounter Visit Diagnoses Not on filedocumented in this encounter"
--- OUTSIDE RECORDS SUMMARY | ~2019-05-05 | XMS | Encounter Summary ---
Demographics + + + | Address | [address] | | | [place] [address] | + + + | Home Phone [...] [place] | | | | | [address] | | + + + + + Care Team Providers + +------+ + | Care Pipe Smoking Machine Operator Name | Role | Phone [...] + | 09/24/ | [facility] [place] | Giuliano Padilla, | Trigger thumb of | | 2019 | Visit | ORTHOPEDIC SURGERY | MD Germania BARON | left hand (Primary | | | | [address] | [place] | Dx); Trigger finger, | | | | [place] | [address] | left index finger; | | | | [address] | | Trigger finger, left | | | | [phone] | | middle finger | +--------+---------+ + [...] | | | | | [place] [address] | | | | | | [phone] | | | | | | | | +--------+ + + + + | 06/08/ | Office | Physical Medicine | Rocky Santos, | | | 2019 | Visit | and Rehabilitation | MD [address] | | | | | | [place] | | | | | | [address] | | | | | | | | +--------+ + + + + | 06/16/ | Appointment | Pulmonology | Eveline Jaffe | | | 2019 | | | MD [address] | | | | | | [address] | | | | | | [place] [address] | | | | | | [phone] | | | | | | | | +--------+ + + + + | 06/16/ | Office | Pulmonology | Eveline Jaffe | | | 2019 | Visit | | MD [address] | | | | | | [address] | | | | | | [place], [place] [address] | | | | | | [phone] | | | | | | | | +--------+ + + + + | 08/24/ | Office | Cardiology | Anisha Lopez DO | | | 2019 | Visit | | [address] | | | | | | [place] | | | | | | [address] | | | | | | | [...]
--- OUTSIDE RECORDS SUMMARY | ~2019-05-05 | XMS | Encounter Summary ---
Demographics + + + | Address | [address] | | | [place] [address] | + + + | Home Phone [...] [place] | | | | | [address] | | + + + + + Care Team Providers + +------+ + | Care Hatch Supervisor Name | Role | Phone | [...] | | | Consult | [place], | [place], [place] | | | | | | [place] [address] | [address] Phone: | | | | | | Phone: | [phone] | | | | | | [phone] | Fax: | | | | | | Fax: | [phone] | | | | | | [phone] | | + +--------+ + + + + Encounter Details +--------+---------+ + + + | Date | Type | Department | Care Team | Description | +--------+---------+ + + + | 03/10/ | Office | [facility] | Anisha Lopez DO | Hypokalemia (Primary | | 2019 | Visit | CARDIOLOGY [place] | [address] | Dx); Paroxysmal | | | | [address] | [place], [place] | atrial fibrillation | | | | [address] [place] [address] | [phone] | (HCC); Essential | | | | [place], [place] | | hypertension; | | | | [address] | | Cerebrovascular | | | | [phone] | | accident (CVA), | | | [...] Anisha Lopez, - 03/10/2019 3:20 PM PDT [facility] Cardiology Follow Up Note Reason for [...] above past medical history. She presents to [facility] cardiology office for initial consultation regarding dyspnea [...] on following up with jamilah murphy in [place]. She continues to have issues with dyspnea [...] - ANTERIOR; Surgeon: Silviano Cabrera MD; Location: [facility] MAIN OR; Service: Orthopedics; Laterality: N/A; C4-6 CHOLECYSTECTOMY 2000 COLONOSCOPY EYE SURGERY FINGER SURGERY 12-02-11 Thumb HAND SURGERY HARDWARE REMOVAL HYSTERECTOMY 1974 ovaries removed LUMBAR DECOMPRESSION & FUSION N/A 03/31/2014 Procedure: LUMBAR - DECOMPRESSION & FUSION; Surgeon: Silviano Cabrera MD; Location: [facility] OR; Service: Ortho/Spine; Laterality: N/A; LUMBAR EPIDURAL INJECTION 05-27-12 Right L5 TFESI target Right S1 LUMBAR FUSION N/A 03/31/2014 Procedure: LUMBAR - FUSION - POST; Surgeon: Silviano Cabrera MD; Location: [facility]; Service: Ortho/Spine; Laterality: N/A; L 4/S1 LUMBAR FUSION N/A 03/29/2014 Procedure: LUMBAR - FUSION - ANTERIOR; Surgeon: Silviano Cabrera MD; Location: [facility] O R; Service: Ortho/Spine; Laterality: N/A; [...] | | | | | [place] [address] | | | | | | [phone] | | | | | | | | +--------+ + + + + | 06/08/ | Office | Physical Medicine | Rocky Santos, | | | 2019 | Visit | and Rehabilitation | MD [address] | | | | | | [place] | | | | | | [address] | | | | | | | | +--------+ + + + + | 06/16/ | Appointment | Pulmonology | Eveline Jaffe | | | 2019 | | | MD [address] | | | | | | [address] | | | | | | [place] [address] | | | | | | [phone] | | | | | | | | +--------+ + + + + | 06/16/ | Office | Pulmonology | Eveline Jaffe | | | 2019 | Visit | | MD [address] | | | | | | [address] | | | | | | [place] [address] | | | | | | [phone] | | | | | | | | +--------+ + + + + | 08/24/ | Office | Cardiology | Anisha Lopez DO | | | 2019 | Visit | | [address] | | | | | | [place] | | | | | | [address] | | | | | | | [...]
--- OUTSIDE RECORDS SUMMARY | ~2019-05-05 | XMS | Encounter Summary ---
Demographics + + + | Address | [address] | | | [place] [address] | + + + | Home Phone [...] [place] | | | | | [address] | | + + + + + Care Team Providers + +------+ + | Care Cleaning Specialist Name | Role | Phone | + +------+ + | Davis Ivan MD | PCP | | + +------+ + Encounter Details +--------+ + + + + | Date | Type | Department | Care Team | Description | +--------+ + + + + | 07/27/ | Hospital | [facility] | [facility], | | | 2014 | Encounter | MED CTR SLEEP | Ayana Looney MD | | | | | [place] [address] | | | | | | [place] | | | | | | [address] | | | | | | [phone] | | | +--------+ + + + [...] | 2018 | Visit | | [address] | | | | | | [address] | | | | | | [place] [address] | | | | | | [phone] | | | | | | | | +--------+ + + + + | 06/08/ | Office | Physical Medicine | Rocky Santos, | | | 2019 | Visit | and Rehabilitation | MD [address] | | | | | | [place] | | | | | | [address] | | | | | | | | +--------+ + + + + | 06/16/ | Appointment | Pulmonology | Eveline Jaffe | | | 2019 | | | MD [address] | | | | | | [address] | | | | | | [place] [address] | | | | | | [phone] | | | | | | | | +--------+ + + + + | 06/16/ | Office | Pulmonology | Eveline Jaffe | | | 2019 | Visit | | MD [address] | | | | | | [address] | | | | | | [place] [address] | | | | | | [phone] | | | | | | | | +--------+ + + + + | 08/24/ | Office | Cardiology | Anisha Lopez DO | | | 2019 | Visit | | [address] | | | | | | [place] | | | | | | [address] | | | | | | | | +--------+ + + + + documented as of this encounter Visit Diagnoses Not on filedocumented in this encounter"
--- OUTSIDE RECORDS SUMMARY | ~2019-05-05 | XMS | Encounter Summary ---
Demographics + + + | Address | [address] | | | [place] [address] | + + + | Home Phone [...] [place] | | | | | [address] | | + + + + + Care Team Providers + +------+ + | Care Picking Crew Supervisor Name | Role | Phone [...] + + | 09/20/ | Hospital | [facility] | Adelita Lu MD | Anxiety (Primary | | 2015 | Encounter | MED CTR MEDICAL | [address] | Dx); Chronic pain; | | | | ONCOLOGY CLINIC [address] | [place] | COPD (chronic | | | | [address] [place] | [address] | obstructive | | | | [place] [address] | [phone] | pulmonary disease) | | | | [phone] | | (HCC); Depression; | | | | | | Spinal stenosis in | | | | | | cervical region; | | | | | | Squamous cell | | | | | | carcinoma of lung, | | | | | | stage I, unspecified | | | | | | laterality ([facility]); | | | | | | Recurrent squamous | | | | | | cell carcinoma of | | | | | | lung, unspecified | | | | | | laterality ([facility]) | +--------+ + + + + Social [...] Lu MD - 09/20/2014 2:27 PM PDT .[facility] Hem-Onc Progress Note [facility] Patient name:Thea Carmona : 1945 Age: 69 y.o. CSN: [id number] Date of Service: 09/20/2014 Identifying Statement: Thea Carmona is a 69 y.o. female from [facility] with clinical stage II, non-small [...] by Dr. Mace , thoracic surgeon at [facility] for consideration of broncho scopy, right [...] COPD (chronic obstructive pulmonary disease) ([facility]) on albuterol Spondylolisthesis of cervical region Spinal stenosis has tried cortisone injections Osteoporosis Depression Pneumonia 2009 hospitalized 5 days Rheumatoid arthritis(714.0) ([facility]) on prednisone and [facility]otrexate[facility] Hyperlipidemia on simvastatin Hypertension on clonidine and lisinopril Hypothyroidism GERD (gastroesophageal reflux disease) Stroke ([facility]) 2006 Stroke ([facility]) 2007 Squamous cell carcinoma of lung ([facility]) 07/2013 right lower lobe Sputum culture positive for Scopulariopsis species Recurrent squamous cell carcinoma of lung ([facility]) 07/11/[address] and RUL [...] 75 mcg by mouth every morning (before desahun akfast). MAGNESIUM 100 MG CAPS Take by mouth Daily. METHOTREXATE 2.5 MG TABLET Take 25 mg by mouth Once a week. OMEPRAZOLE (PRILOSEC) 20 MG CAPSULE Take 20 mg by mouth Twice daily breakfast/Bedtime. POTASSIUM GLUCONATE Take 1 tablet by mouth Daily. PREDNISONE (DELTASONE) 5 MG TABLET Take 10 mg by mouth Daily. RESPIRATORY THERAPY SUPPLIES [employer] ResMed S9 auto CPAP 5-9 cm H2O. Heater and Humidifier . All necessary supplies. AHI 11.6. Diagnosis Code(s)327.23, also has co morbid hypertension , history of stroke. Length of Need 99 months. Please send order to [facility]. RESPIRATORY THERAPY SUPPLIES [facility] Resp[facility] autotitrating CPAP at 5-9 cm H2O [...] this chart may have been created with upurskill voice recognition software. Occasi onal wrong-word or [...] | 2018 | Visit | | [address] | | | | | | [facility] | | | | | | [place] [address] | | | | | | [phone] | | | | | | | | +--------+ + + + + | 06/08/ | Office | Physical Medicine | Rocky Santos, | | | 2019 | Visit | and Rehabilitation | MD [address] | | | | | | [place] | | | | | | [address] | | | | | | | | +--------+ + + + + | 06/16/ | Appointment | Pulmonology | Eveline Jaffe | | | 2019 | | | MD [address] | | | | | | [address] | | | | | | [place] [address] | | | | | | [phone] | | | | | | | | +--------+ + + + + | 06/16/ | Office | Pulmonology | Eveline Jaffe | | | 2019 | Visit | | MD [address] | | | | | | [address] [place] | | | | | | [place] [address] | | | | | | [phone] | | | | | | | | +--------+ + + + + | 08/24/ | Office | Cardiology | Anisha Lopez DO | | | 2019 | Visit | | [address] | | | | | | [place] | | | | | | [address] | | | | | | | [...]
--- OUTSIDE RECORDS SUMMARY | ~2019-05-05 | XMS | Encounter Summary ---
Demographics + + + | Address | [address] | | | [place] [address] | + + + | Home Phone [...] [place] | | | | | [address] | | + + + + + Care Team Providers + +------+ + | Care Cellular Equipment Repairer Name | Role | Phone | + +------+ + | Davis Ivan MD | PCP | | + +------+ + Encounter Details +--------+ + + + + | Date | Type | Department | Care Team | Description | +--------+ + + + + | 08/30/ | Hospital | [facility] IP | Conversion | Pain | | 2014 | Encounter | CONVERSION [address] | Transaction, | | | | | [address] | Provider Unknown | | | | | [place] | [phone] | | | | | [address] | | | | | | [phone] | | | +--------+ + + + [...] | | | | | | [place] [address] | | | | | | [phone] | | | | | | | | +--------+ + + + + | 06/08/ | Office | Physical Medicine | Rocky Santos, | | | 2019 | Visit | and Rehabilitation | MD [address] | | | | | | [place] | | | | | | [address] | | | | | | | | +--------+ + + + + | 06/16/ | Appointment | Pulmonology | Eveline Jaffe | | 2019 | | | MD [address] | | | | | | [address] | | | | | | [place] [address] | | | | | | [phone] | | | | | | | | +--------+ + + + + | 06/16/ | Office | Pulmonology | Eveline Jaffe | | | 2019 | Visit | | MD [address] | | | | | | [address] | | | | | | [place] [address] | | | | | | [phone] | | | | | | | | +--------+ + + + + | 08/24/ | Office | Cardiology | Anisha Lopez DO | | | 2019 | Visit | | [address] | | | | | | [place] | | | | | | [address] | | | | | | | [...]
--- OUTSIDE RECORDS SUMMARY | ~2019-05-05 | XMS | Encounter Summary ---
Demographics + + + | Address | [address] | | | [place] [address] | + + + | Home Phone [...] [place] | | | | | [address] | | + + + + + [...] | | | [place] | | [place] [address] | | | | | finger, left | | Phone: | | | | | ring finger | | [phone] | | | | | Trigger | | Fax: | | | | | middle | | [phone] | | | | | finger of | | | | | | | left hand | | | | | | | Procedures | | | | | | | [place] | | | | | | [...] + + | 09/28/ | Hospital | [facility] | Giuliano Padilla, | Trigger finger of | | 2018 | Encounter | MED CTR OR INTRA OP | MD [address] | left thumb; Trigger | | | | [address] | [place], [place] | finger, left ring | | | | [place], [place] | [address] | finger; Trigger | | | | [address] | | middle finger of | | | | [phone] | | left hand | +--------+ + [...] | | | | | [place] [address] | | | | | | [phone] | | | | | | | | +--------+ + + + + | 06/08/ | Office | Physical Medicine | Rocky Santos, | | | 2019 | Visit | and Rehabilitation | MD [address] | | | | | | [place] | | | | | | [address] | | | | | | | | +--------+ + + + + | 06/16/ | Appointment | Pulmonology | Eveline Jaffe | | 2019 | | | MD [address] | | | | | | [address] [place] | | | | | | [place] [address] | | | | | | [phone] | | | | | | | | +--------+ + + + + | 06/16/ | Office | Pulmonology | Eveline Jaffe | | | 2019 | Visit | | MD Ra[address] | | | | | | [address] [place] | | | | | | [place] [address] | | | | | | [phone] | | | | | | | | +--------+ + + + + | 08/24/ | Office | Cardiology | Anisha Lopez DO | | | 2019 | Visit | | [address] | | | | | | [place] | | | | | | [address] | | | | | | | [...]
--- OUTSIDE RECORDS SUMMARY | ~2019-05-05 | XMS | Encounter Summary ---
Demographics + + + | Address | [address] | | | [place] [address] | + + + | Home Phone [...] [place] | | | | | [address] | | + + + + + Care Team Providers + +------+ + | Care Senior Software Engineer Name | Role | Phone | + +------+ + | Davis Ivan MD | PCP | | + +------+ + Encounter Details +--------+ + + + + | Date | Type | Department | Care Team | Description | +--------+ + + + + | 07/31/ | Documentati | [facility] | Hiral Dsouza, | | | 2014 | on | MED CTR PHARMACY | [facility] [address] | | | | | [address] [place] | [place], [place] | | | | | [place] [address] | [address] | | | | | [phone] | | | +--------+ + + + [...] as of this encounter Progress Hiral Kemp [facility] - 07/31/2014 11:32 AM PSTFormatting of this note might be different fro m the original. IDT PATIENT MEDICATION/PROFILE REVIEW [facility] Pharmacy [...] of Paclitaxel and carboplatin for locally advanced gci-kwvbd-lfud lung cancer: a randomized phase II locally advanced multi-modality protocol. Pertinent Medical History: has a past medical history of COPD (chronic obstructive pulmona ry disease) (HCC); Spondylolisthesis of cervical region; Spinal stenosis; Osteoporosis; Depr ession; Pneumonia (2008); Rheumatoid arthritis(714.0) (HCC); Hyperlipidemia; Hypertension; H ypothyroidism; GERD (gastroesophageal reflux disease); Stroke (HCC) (2006); Stroke (HCC) (18 01); Squamous cell carcinoma of lung ([facility]) (07/2013); Sputum culture positive for Scopulariop sis species; Recurrent squamous cell carcinoma of lung ([facility]) (07/11/2014); MARCE (obstructive s leep apnea); [...] mg by mouth Daily. Respiratory Therapy Supplies [facility] ResMed S9 auto CPAP 5-9 cm H2O. [...] | | | | | [place] [address] | | | | | | [phone] | | | | | | | | +--------+ + + + + | 06/08/ | Office | Physical Medicine | Rocky Santos, | | | 2019 | Visit | and Rehabilitation | MD [address] | | | | | | [place] | | | | | | [address] | | | | | | | | +--------+ + + + + | 06/16/ | Appointment | Pulmonology | Eveline Jaffe | | 2019 | | | MD [address] | | | | | | [address] [place] | | | | | | [place] [address] | | | | | | [phone] | | | | | | | | +--------+ + + + + | 06/16/ | Office | Pulmonology | Eveline Jaffe | | | 2019 | Visit | | MD [address] | | | | | | [address] | | | | | | [place] [address] | | | | | | [phone] | | | | | | | [...]
--- OUTSIDE RECORDS SUMMARY | ~2019-05-05 | XMS | Encounter Summary ---
Demographics + + + | Address | [address] | | | [place] [address] | + + + | Home Phone [...] [place] | | | | | [address] | | + + + + + Care Team Providers + +------+ + | Care Claim Trainee Name | Role | Phone | + +------+ + | Davis Ivan MD | PCP | | + +------+ + Encounter Details +--------+ + + + + | Date | Type | Department | Care Team | Description | +--------+ + + + + | 08/23/ | Hospital | [facility] | Conversion | Pain | | 2013 | Encounter | CONVERSION DEP [address] | Transaction, | | | | | [address] | Provider Unknown | | | | | [place] | [phone] | | | | | [address] | | | | | | [phone] | | | +--------+ + + + [...] | | | | | | [place] [address] | | | | | | [phone] | | | | | | | | +--------+ + + + + | 06/08/ | Office | Physical Medicine | Rocky Santos, | | | 2019 | Visit | and Rehabilitation | MD [address] | | | | | | [place] | | | | | | [id number] | | | | | | | | +--------+ + + + + | 06/16/ | Appointment | Pulmonology | Eveline Jaffe | | 2019 | | | MD [address] | | | | | | [address] [address] | | | | | | [place] [address] | | | | | | [phone] | | | | | | | | +--------+ + + + + | 06/16/ | Office | Pulmonology | Eveline Jaffe | | | 2019 | Visit | | MD Raul [address] | | | | | | [place] [address] | | | | | | [place] [address] | | | | | | [phone] | | | | | | | | +--------+ + + + + | 08/24/ | Office | Cardiology | Anisha Lopez DO | | | 2019 | Visit | | [address] | | | | | | [place] | | | | | | [address] | | | | | | | [...]
--- OUTSIDE RECORDS SUMMARY | ~2019-05-05 | XMS | Encounter Summary ---
Demographics + + + | Address | [address] | | | [place] [address] | + + + | Home Phone [...] [place] | | | | | [address] | | + + + + + Care Team Providers + +------+ + | Care Yard Operator Name | Role | Phone | [...] | pulmonary disease, | | | | [place], | | unspecified COPD | | | | [place] [address] | | type (HCC) | | | | [phone] | | | +--------+ + + + [...] W | | | | | | [facility] | | | | | | [place] [address] | | | | | | [phone] | | | | | | | | +--------+ + + + + | 06/08/ | Office | Physical Medicine | Rocky Santos, | | | 2019 | Visit | and Rehabilitation | [address] | | | | | | [place] | | | | | | [address] | | | | | | | | +--------+ + + + + | 01/16/ | Appointment | Pulmonology | Eveline Jaffe | | | 2019 | | | MD [address] | | | | | | [address] | | | | | | [place] [address] | | | | | | [phone] | | | | | | | | +--------+ + + + + | 06/16/ | Office | Pulmonology | Eveline Jaffe | | | 2019 | Visit | | MD [address] | | | | | | [address] [place] | | | | | | [place] [address] | | | | | | [phone] | | | | | | | | +--------+ + + + + | 08/24/ | Office | Cardiology | Anisha Lopez DO | | 2019 | Visit | | [address] | | | | | | [place] | | | | | | [address] | | | | | | | | +--------+ + + + + documented as of this encounter Visit Diagnoses + + | Diagnosis | + + | Chronic obstructive pulmonary disease, unspecified COPD type (HCC) | + + documented in this encounter"
--- OUTSIDE RECORDS SUMMARY | ~2019-05-05 | XMS | Encounter Summary ---
Demographics + + + | Address | [address] | | | [place] [address] | + + + | Home Phone [...] [place] | | | | | [address] | | + + + + + Care Team Providers + +------+ + | Care Head Of Visual Merchandising Name | Role | Phone | + [...] Looney MD | | | | | [place], | | | | | | [place] [address] | | | | | | [phone] | | | +--------+--------+ + + + [...] | | | | | [place] [address] | | | | | | [phone] | | | | | | | | +--------+ + + + + | 06/08/ | Office | Physical Medicine | Rocky Santos, | | | 2019 | Visit | and Rehabilitation | MD [address] | | | | | | [place] | | | | | | [address] | | | | | | | | +--------+ + + + + | 06/16/ | Appointment | Pulmonology | Eveline Jaffe | | 2019 | | | MD [address] | | | | | | [address] [place] | | | | | | [place] [address] | | | | | | [phone] | | | | | | | | +--------+ + + + + | 06/16/ | Office | Pulmonology | Eveline Jaffe | | | 2019 | Visit | | MD Raul [address] | | | | | | [address] [place] | | | | | | [place] [address] | | | | | | [phone] | | | | | | | | +--------+ + + + + | 08/24/ | Office | Cardiology | Anisha Lopez DO | | | 2019 | Visit | | [address] | | | | | | [place] | | | | | | [address] | | | | | | | | +--------+ + + + + documented as of this encounter Visit Diagnoses Not on filedocumented in this encounter"
--- OUTSIDE RECORDS SUMMARY | ~2019-05-05 | XMS | Encounter Summary ---
Demographics + + + | Address | [address] | | | [place] [address] | + + + | Home Phone [...] [place] | | | | | [address] | | + + + + + Care Team Providers + +------+ + | Care Mold Yard Crane Operator Name | Role | Phone | + +------+ + | Davis Ivan MD | PCP | | + +------+ + Encounter Details +--------+ + + + + | Date | Type | Department | Care Team | Description | +--------+ + + + + | 07/03/ | Hospital | [facility] | Jimmy Banegas DO | | | 2016 | Encounter | MED CTR RADIATION | [address] | | | | | ONCOLOGY [address] | [place] | | | | | [place], | [address] | | | | | [place] [address] | | | | | | [phone] | | | +--------+ + + + [...] 07/03/2015 12:00 AM PSTPATIENT: Thea Hernandez MathewDOS:07/03/2015#: [id number] :1945 Radiation Oncology Follow-up Clinic Note ICD/Diagnosis: 162.5 - Malignant neoplasm of lower lobe, bronchus or lung, Diagnosed 07/21/2013 (Active) CC: José Miguel Mace M.D. Davis Ivan M.D. Ja White M.D. Chief Complaint/History of Present Illness: Lung cancer I had the pleasure of seeing Thea Carmona today in clinic. She is a 69-year-old woman fro [facility] who was previously being diagnosed with [...] Ib(pT2a,pN0,M0). She was later reevaluated at the [facility] multidisciplinary thoracic conference due to an enlarging [...] A PET sca n was performed at [facility] on June 27, 2015 confirming an [...] 0 = no pain and 10= worst [id number] your pain (quality) i.e. aching, s harp, [...] SACHIR Radiation Oncologist Department of Radiation Oncology [facility] This note was transcribed using SightCall speech recognition software. As a result, there ma y be unintended for medical and/or spelling errors. Every attempt is made to correct dicta tion. If there are any questions or errors please contact our office. Page 1 of 3 CSN: [id number] signed by Jimmy Banegas DO at 07/05/2015 2:42 PM PSTdoeric chen in this encounter Plan of Treatment +--------+ + + + + | Date | Type | Specialty | Care Team | Description | +--------+ + + + + | 05/30/ | Office | Rheumatology | Santosh Sumner, | | | 2018 | Visit | | [address] | | | | | | [facility] | | | | | | [place] [address] | | | | | | [phone] | | | | | | | | +--------+ + + + + | 06/08/ | Office | Physical Medicine | Rocky Santos, | | | 2019 | Visit | and Rehabilitation | MD [address] | | | | | | [place] | | | | | | [address] | | | | | | | | +--------+ + + + + | 06/16/ | Appointment | Pulmonology | Eveline Jaffe | | | 2019 | | | MD [address] | | | | | | [address] [place] | | | | | | [place] [address] | | | | | | [phone] | | | | | | | | +--------+ + + + + | 06/16/ | Office | Pulmonology | Eveline Jaffe | | | 2019 | Visit | | MD [address] | | | | | | [address] [place] | | | | | | [place] [address] | | | | | | [phone] | | | | | | | | +--------+ + + + + | 08/24/ | Office | Cardiology | Anisha Lopez DO | | | 2019 | Visit | | [address] | | | | | | [place] | | | | | | [address] | | | | | | | | +--------+ + + + + documented as of this encounter Visit Diagnoses Not on filedocumented in this encounter"
--- OUTSIDE RECORDS SUMMARY | ~2019-05-05 | XMS | Encounter Summary ---
Demographics + + + | Address | [address] | | | [place] [address] | + + + | Home Phone [...] [place] | | | | | [address] | | + + + + + Care Team Providers + +------+ + | Care Supervisor Spinning Name | Role | Phone | + [...] Looney MD | | | | | [place], | | | | | | [place] [address] | | | | | | [phone] | | | +--------+ + + + [...] | | | | | [place] [address] | | | | | | [phone] | | | | | | | | +--------+ + + + + | 06/08/ | Office | Physical Medicine | Rocky Santos, | | | 2019 | Visit | and Rehabilitation | MD [address] | | | | | | [place] | | | | | | [address] | | | | | | | | +--------+ + + + + | 06/16/ | Appointment | Pulmonology | Eveline Jfafe | | 2019 | | | MD [address] | | | | | | [address] | | | | | | [place] [address] | | | | | | [phone] | | | | | | | | +--------+ + + + + | 06/16/ | Office | Pulmonology | Eveline Jaffe | | | 2019 | Visit | | MD Raul [address] | | | | | | [address] | | | | | | [place] [address] | | | | | | [phone] | | | | | | | | +--------+ + + + + | 08/24/ | Office | Cardiology | Anisha Lopez DO | | | 2019 | Visit | | [address] | | | | | | [place] | | | | | | [address] | | | | | | | [...] FINDINGS: Stable left internal jugular line | [facility] | | with tip in the superior [...] ST. | [address] | [place], [place] | [phone] | | [facility] | | [address] | | | - IMAGING | | | | + + + + + documented in this encounter Visit Diagnoses + + | Diagnosis | + + | Cough - Primary | + + documented in this encounter"
--- OUTSIDE RECORDS SUMMARY | ~2019-05-05 | XMS | Encounter Summary ---
Demographics + + + | Address | [address] | | | [place] [address] | + + + | Home Phone [...] [place] | | | | | [address] | | + + + + + Care Team Providers + +------+ + | Care Gas Plumbing Inspector Name | Role | Phone | [...] Squamous | Jimmy C, DO | [address] | | | | | cell | [address] | [place], | | | | | carcinoma of | [address] | [place] [address] | | | | | lung, stage | [place], | Phone: | | | | | I, right | [place] [address] | [phone] | | | | | (HCC) | Phone: | Fax: | | | | | Procedures | [phone] | [phone] | | | | | CT Treatment | Fax: | | | | | | Plan | [phone] | | | | | | Complex [...] | | | | carcinoma of | [address] | [place] [address] | | | | | lung, right | [place], | Phone: | | | | | ([facility]) | [place] [address] | [phone] | | | | | | | Fax: | | | | | | | [phone] | +--------+ + + + + + Encounter Details +--------+ + + + + | Date | Type | Department | Care Team | Description | +--------+ + + + + | 07/25/ | Hospital | [facility] | Jimmy Banegas DO | 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 | Encounter | MED CTR RADIATION | [address] | carcinoma of lung, | | | | ONCOLOGY [address] | [place], [place] | stage I, right (HCC) | | | | [place], | [address] | | | | | [place] [address] | | | | | | [phone] | | | +--------+ + + + [...] | | | | | [place] [address] | | | | | | [phone] | | | | | | | | +--------+ + + + + | 06/08/ | Office | Physical Medicine | Rocky Santos, | | | 2019 | Visit | and Rehabilitation | MD [address] | | | | | | [place] | | | | | | [address] | | | | | | | | +--------+ + + + + | 06/16/ | Appointment | Pulmonology | Eveline Jaffe | | 2019 | | | MD [address] | | | | | | [address] | | | | | | [place] [address] | | | | | | [phone] | | | | | | | | +--------+ + + + + | 06/16/ | Office | Pulmonology | Ld Eveline | | | 2019 | Visit | | MD Raul [address] | | | | | | [address] [address] | | | | | | [place] [address] | | | | | | [phone] | | | | | | | | +--------+ + + + + | 08/24/ | Office | Cardiology | Anisha Lopez DO | | | 2019 | Visit | | [address] | | | | | | [place] | | | | | | [address] | | | | | | | [...] mL/min/1.73m2 | [facility] | | | [facility] | | | [facility] | | | [...] + | [facility] | [address] | [place] | [phone] | | [facility] | | [address] | | | - LABORATORY | | | | + + + + + | [facility] | [address] | [place] | | | [facility] | | [address] | | | - LABORATORY | | [...] + | [facility] | [address] | [place], [place] | [phone] | | [facility] | | [address] | | | - LABORATORY | | | | + + + + + | [facility] | [address] | [place], [place] | | | [facility] | | [address] | | | - LABORATORY | | | | + + + + + documented in this encounter Visit Diagnoses + + | Diagnosis | + + | Squamous cell carcinoma of lung, stage I, right (HCC) | + + documented in this encounter"
--- OUTSIDE RECORDS SUMMARY | ~2019-05-05 | XMS | Encounter Summary ---
Demographics + + + | Address | [address] | | | [place] [address] | + + + | Home Phone [...] [address] | | | | | [address] | | + + + + + Care Team Providers + +------+ + | Care Religious Healer Name | Role | Phone | + [...] MD | obstructive | | | | [place], | | pulmonary disease) | | | | [place] [address] | | (HCC) (Primary Dx); | | | | [phone] | | Lung mass | +--------+ + [...] | | | | | [place] [address] | | | | | | [phone] | | | | | | | | +--------+ + + + + | 06/08/ | Office | Physical Medicine | Rocky Santos, | | | 2019 | Visit | and Rehabilitation | MD [address] | | | | | | [place] | | | | | | [address] | | | | | | | | +--------+ + + + + | 06/16/ | Appointment | Pulmonology | Eveline Jaffe | | 2019 | | | MD [address]ole [address] | | | | | | [address] | | | | | | [place] [address] | | | | | | [phone] | | | | | | | | +--------+ + + + + | 06/16/ | Office | Pulmonology | Eveline Jaffe | | | 2019 | Visit | | MD Raul [address] | | | | | | [address] | | | | | | [place] [address] | | | | | | [phone] | | | | | | | | +--------+ + + + + | 08/24/ | Office | Cardiology | Anisha Lopez DO | | | 2019 | Visit | | [address] | | | | | | [place] | | | | | | [address] | | | | | | | [...]
--- OUTSIDE RECORDS SUMMARY | ~2019-05-05 | XMS | Encounter Summary ---
Demographics + + + | Address | [address] | | | [place] [address] | + + + | Home Phone [...] [place] | | | | | [address] | | + + + + + Care Team Providers + +------+ + | Care Records Manager Name | Role | Phone | [...] | | | | | | [place] [address] | | | | | | [phone] | | | +--------+ + + + [...] | | | | | [place] [address] | | | | | | [phone] | | | | | | | | +--------+ + + + + | 06/08/ | Office | Physical Medicine | Rocky Santos, | | | 2019 | Visit | and Rehabilitation | MD [address] | | | | | | [place] | | | | | | [address] | | | | | | | | +--------+ + + + + | 06/16/ | Appointment | Pulmonology | Eveline Jaffe | | 2019 | | | MD [address] | | | | | | [address] | | | | | | [place] [address] | | | | | | [phone] | | | | | | | | +--------+ + + + + | 06/16/ | Office | Pulmonology | Eveline Jaffe | | | 2019 | Visit | | MD [address]ole [address] | | | | | | [address] [address] | | | | | | [place] [address] | | | | | | [phone] | | | | | | | | +--------+ + + + + | 08/24/ | Office | Cardiology | Anisha Lopez DO | | | 2019 | Visit | | [address] | | | | | | [place] | | | | | | [id number] | | | | | | | | +--------+ + + + + documented as of this encounter Visit Diagnoses Not on filedocumented in this encounter"
--- OUTSIDE RECORDS SUMMARY | ~2019-05-05 | XMS | Encounter Summary ---
Demographics + + + | Address | [address] | | | [place] [address] | + + + | Home Phone [...] [place] | | | | | [address] | | + + + + + [...] + | 12/16/ | Office | [facility] | Giuliano Padilla, | Right hand pain | | 2018 | Visit | ORTHOPEDIC SURGERY | [address] | (Primary Dx); Left | | | | [address] | [place] | hand pain; Postop | | | | [place] | [address] | check | | | | [address] | | | | | | [phone] | | | +--------+---------+ + + + [...] of motion of her thumb and good general internal medicine doctor of her hand No tenderness and no [...] | 2018 | Visit | | [address] | | | | | | [facility] | | | | | | [place] [address] | | | | | | [phone] | | | | | | | | +--------+ + + + + | 06/08/ | Office | Physical Medicine | Rocky Santos, | | | 2019 | Visit | and Rehabilitation | MD Varela [address] | | | | | | [place] | | | | | | [address] | | | | | | | | +--------+ + + + + | 06/16/ | Appointment | Pulmonology | Eveline Jfafe | | | 2019 | | | MD [address] | | | | | | [address] [place] | | | | | | [place] [address] | | | | | | [phone] | | | | | | | | +--------+ + + + + | 06/16/ | Office | Pulmonology | Eveline Jaffe | | | 2019 | Visit | | MD [address] | | | | | | [address] [place] | | | | | | [place] [address] | | | | | | [phone] | | | | | | | | +--------+ + + + + | 08/24/ | Office | Cardiology | Anisha Lopez DO | | | 2019 | Visit | | [address] | | | | | | [place] | | | | | | [address] | | | | | | | [...]
--- OUTSIDE RECORDS SUMMARY | ~2019-05-05 | XMS | Encounter Summary ---
Demographics + + + | Address | [address] | | | [place] [address] | + + + | Home Phone [...] [place] | | | | | [address] | | + + + + + Care Team Providers + +------+ + | Care Collections Rep Name | Role | Phone | [...] | | | | | | [place] [address] | | | | | | [phone] | | | +--------+ + + + [...] | 2018 | Visit | | [address] | | | | | | [facility] | | | | | | [place] [address] | | | | | | [phone] | | | | | | | | +--------+ + + + + | 06/08/ | Office | Physical Medicine | Rocky Santos, | | | 2019 | Visit | and Rehabilitation | MD Varela [address] | | | | | | [place] | | | | | | [address] | | | | | | | | +--------+ + + + + | 06/16/ | Appointment | Pulmonology | Eveline Jaffe | | | 2019 | | | MD [address] | | | | | | [address] [place] | | | | | | [place] [address] | | | | | | [phone] | | | | | | | | +--------+ + + + + | 06/16/ | Office | Pulmonology | Eveline Jaffe | | | 2019 | Visit | | MD [address] | | | | | | [address] [place] | | | | | | [place] [address] | | | | | | [phone] | | | | | | | | +--------+ + + + + | 08/24/ | Office | Cardiology | Anisha Lopez DO | | | 2020 | Visit | | [address] | | | | | | [place], [place] | | | | | | [address] | | | | | | | [...] Performed At | + + + | [facility] | [place] | | Department [address] [place] [address] | [facility] | | [ rep ct street1+2] [ rep ct [facility] [place] | | [facility]] Signed | - IMAGING | | | | | Patient Name: THEA CARMONA Physician: | | | OFFE.01 : 1945 Age: 67 Sex: F Unit #: [id number] | | | Exam Date: 05/11/13 Location: [facility] | | | Report #: [id number] Page: | | | %(RAD)RES..mtdd.print.filter("pg") of %(RAD) | | | RES..mtdd.print.filter("tpg") | | | | | | Accession Number: [id number] | | | CHEST X-RAY CLINICAL HISTORY: [...] Transcribed Date/Time: 05/11/2013 | | | 13:38 Costume Shop Coordinator: <<Signature | | | on File>> | | | Matheus | | | MD Kang05/11/13 1420 <Electronically signed by Matheus Kapadia MD> | | | Matheus Kapadia MD 05/11/13 1328 Costume Shop Coordinator: [employer] | | | Ixacmnefznmrr56/11/13 1338 Ayana Taylor MD | | | | | + + + + + + + + | Performing | Address | City/State/Zipcode | Phone Number | | Organization | | | | + + + + + | [facility] | [address] | [place] | [phone] | | [facility] | | [address] | | | - IMAGING | | | | + + + + + documented in this encounter Visit Diagnoses + + | Diagnosis | + + | Pulmonary abscess (HCC) - Primary Abscess of lung | + + documented in this encounter
--- OUTSIDE RECORDS SUMMARY | ~2019-05-05 | XMS | Encounter Summary ---
Demographics + + + | Address | [address] | | | [place] [address] | + + + | Home Phone [...] [address] | | | | | [address] | | + + + + + Care Team Providers + +------+ + | Care Nuclear Fuel Processing Technician Name | Role | Phone | [...] + + | 04/11/ | Telephone | [facility] | Rodney Worthy | Wrist Pain | | 2019 | | ORTHOPEDIC SURGERY | MD [address] | | | | | [address] [facility] | [facility] | | | | | [place] | [place] [address] | | | | | [address] | [phone] | | | | | [phone] | | | +--------+ + + + [...] | | | | | [place] [address] | | | | | | [phone] | | | | | | | | +--------+ + + + + | 06/08/ | Office | Physical Medicine | Rocky Santos, | | | 2019 | Visit | and Rehabilitation | [address] | | | | | | [place] | | | | | | [address] | | | | | | | | +--------+ + + + + | 06/16/ | Appointment | Pulmonology | Eveline Jaffe | | | 2019 | | | MD [address] | | | | | | [address] [place] | | | | | | [place] [address] | | | | | | [phone] | | | | | | | | +--------+ + + + + | 06/16/ | Office | Pulmonology | Eveline Jaffe | | | 2019 | Visit | | MD [address] | | | | | | [address] [place] | | | | | | [place] [address] | | | | | | [phone] | | | | | | | | +--------+ + + + + | 08/24/ | Office | Cardiology | Anisha Lopez DO | | | 2019 | Visit | | [address] | | | | | | [place] | | | | | | [address] | | | | | | | | +--------+ + + + + documented as of this encounter Visit Diagnoses Not on filedocumented in this encounter"
--- OUTSIDE RECORDS SUMMARY | ~2019-05-05 | XMS | Encounter Summary ---
Demographics + + + | Address | [address] | | | [place] [address] | + + + | Home Phone [...] [place] | | | | | [address] | | + + + + + Care Team Providers + +------+ + | Care Bakery Manager Name | Role | Phone | [...] [address] | | | | | [place], | [place] | | | | | [place] [address] | [place] [address] | | | | | [phone] | [phone] | | | | | | | [...] | | | | | | [facility] | | | | | | [place] [address] | | | | | | [phone] | | | | | | | | +--------+ + + + + | 06/08/ | Office | Physical Medicine | Rocky Santos, | | | 2019 | Visit | and Rehabilitation | [address] | | | | | | [place] | | | | | | [address] | | | | | | | | +--------+ + + + + | 06/16/ | Appointment | Pulmonology | Eveline Jaffe | | | 2019 | | | MD [address] | | | | | | [address] [place] | | | | | | [place] [address] | | | | | | [phone] | | | | | | | | +--------+ + + + + | 06/16/ | Office | Pulmonology | Eveline Jaffe | | | 2019 | Visit | | MD Nichole Carter | | | | | | [address] [place] | | | | | | [place], [place] [address] | | | | | | [phone] | | | | | | | | +--------+ + + + + | 08/24/ | Office | Cardiology | Anisha Lopez DO | | | 2019 | Visit | | [address] | | | | | | [place] | | | | | | [address] | | | | | | | | +--------+ + + + + documented as of this encounter Visit Diagnoses + + | Diagnosis | + + | Chronic obstructive pulmonary disease, unspecified COPD type (HCC) - Primary | + + documented in this encounter"
--- OUTSIDE RECORDS SUMMARY | ~2019-05-05 | XMS | Encounter Summary ---
Demographics + + + | Address | [address] | | | [place] [address] | + + + | Home Phone [...] [place] | | | | | [address] | | + + + + + Care Team Providers + +------+ + | Care Stereo Plotter Operator Name | Role | Phone | [...] | | | | | | [place] [address] | | | | | | [phone] | | | +--------+ + + + [...] | 2018 | Visit | | [address] | | | | | | [facility] | | | | | | [place] [address] | | | | | | [phone] | | | | | | | | +--------+ + + + + | 06/08/ | Office | Physical Medicine | Rocky Santos, | | | 2019 | Visit | and Rehabilitation | [address] | | | | | | [place] | | | | | | [address] | | | | | | | | +--------+ + + + + | 06/16/ | Appointment | Pulmonology | Eveline Jfafe | | | 2019 | | | MD Nichole [address] | | | | | | [address] [place] | | | | | | [place] [address] | | | | | | [phone] | | | | | | | | +--------+ + + + + | 06/16/ | Office | Pulmonology | Eveline Jaffe | | | 2019 | Visit | | MD Nichole Carter | | | | | | [address] [place] | | | | | | [place], [place] [address] | | | | | | [phone] | | | | | | | | +--------+ + + + + | 08/24/ | Office | Cardiology | Anisha Lopez DO | | | 2019 | Visit | | [address] | | | | | | [place] | | | | | | [address] | | | | | | | | +--------+ + + + + documented as of this encounter Visit Diagnoses Not on filedocumented in this encounter"
--- OUTSIDE RECORDS SUMMARY | ~2019-05-05 | XMS | Encounter Summary ---
Demographics + + + | Address | [address] | | | [place] [address] | + + + | Home Phone [...] [place] | | | | | [address] | | + + + + + Care Team Providers + +------+ + | Care Fruit Culler Name | Role | Phone | + [...] + + | 05/02/ | Office | [facility] | Giuliano Padilla, | Postop check | | 2014 | Visit | ORTHOPEDIC SURGERY | MD Germania BARON | (Primary Dx) | | | | [address] [facility] | [place] | | | | | [place] | [id number] | | | | | [address] | | | | | | [phone] | | | +--------+---------+ + + + [...] | 2018 | Visit | | [address] | | | | | | [facility] | | | | | | [place] [address] | | | | | | [phone] | | | | | | | | +--------+ + + + + | 06/08/ | Office | Physical Medicine | Rocky Santos, | | | 2019 | Visit | and Rehabilitation | MD [address]ole [address] | | | | | | [place] | | | | | | [address] | | | | | | | | +--------+ + + + + | 06/16/ | Appointment | Pulmonology | Eveline Jaffe | | | 2019 | | | MD Nichole Carter | | | | | | [address] | | | | | | [place] [address] | | | | | | [phone] | | | | | | | | +--------+ + + + + | 06/16/ | Office | Pulmonology | Eveline Jaffe | | 2019 | Visit | | Sherrin, MD [address] | | | | | | [address] | | | | | | [place] [address] | | | | | | [phone] | | | | | | | | +--------+ + + + + | 08/24/ | Office | Cardiology | Anisha Lopez DO | | | 2019 | Visit | | [address] | | | | | | [place] | | | | | | [address] | | | | | | | | +--------+ + + + + documented as of this encounter Visit Diagnoses + + | Diagnosis | + + | Postop check - Primary Follow-up examination, following unspecified surgery | + + documented in this encounter
--- OUTSIDE RECORDS SUMMARY | ~2019-05-05 | XMS | Encounter Summary ---
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 | Encounter | MED CTR CHEMO | Lokesh Gramajo MD [address] | cell carcinoma of | | | | INFUSION [address] | [address] [place] | lung, unspecified | | | | [place], | [place] [address] | laterality (HCC) | | | | [place] [address] | [phone] | | | | | [phone] | | | +--------+ + + + [...] | | 2018 | Visit | | [address] | | | | | | [address] [address] | | | | | | [place] [address] | | | | | | [phone] | | | | | | | | +--------+ + + + + | 06/08/ | Office | Physical Medicine | Rocky Santos, | | | 2019 | Visit | and Rehabilitation | [address] | | | | | | [place] | | | | | | [address] | | | | | | | | +--------+ + + + + | 06/16/ | Appointment | Pulmonology | Eveline Jaffe | | | 2019 | | | MD Nichole Carter | | | | | | [address] [place] | | | | | | [place], [place] [address] | | | | | | [phone] | | | | | | | | +--------+ + + + + | 06/16/ | Office | Pulmonology | Eveline Jaffe | | | 2019 | Visit | | MD Nichole [address] | | | | | | [address] [place] | | | | | | [place] [address] | | | | | | [phone] | | | | | | | | +--------+ + + + + | 08/24/ | Office | Cardiology | Anisha Lopez DO | | | 2019 | Visit | | [address] | | | | | | [place] | | | | | | [address] | | | | | | | [...]
--- OUTSIDE RECORDS SUMMARY | ~2019-05-05 | XMS | Encounter Summary ---
Demographics + + + | Address | [address] | | | [place] [address] | + + + | Home Phone [...] [place] | | | | | [address] | | + + + + + Care Team Providers + +------+ + | Care Rv Parts And Service Director Name | Role | Phone | [...] | | n | low back | [address] | [address] [place] | | | | | pain without | [place], | [place], [place] | | | | | sciatica | [place] [address] | [address] Phone: | | | | | Hyperalgesia | Phone: | [phone] | | | | | History of | [phone] | Fax: | | | | | lumbar | Fax: | [phone] | | | | | fusion | [phone] | | | | | | Failed [...] | | | | low back | [address] | [address] | | | | | pain without | [place], | [place] | | | | | sciatica | [place] [address] | [place], [place] | | | | | Hyperalgesia | Phone: | [phone] | | | | | History of | [phone] | Phone: | | | | | lumbar | Fax: | [phone] | | | | | fusion | [phone] | Fax: | | | | | | | [phone] | + + + + + + [...] | spondylosis | [address] | [address] | | | | n | Procedures | Epi [address] | [place], | | | | | Follow up | [place], | [place] [address] | | | | | [place] | [place] [address] | Phone: | | | | | 06/08/2019 | Phone: | [phone] | | | | | | [phone] | Fax: | | | | | | Fax: | [phone] | | | | | | [phone] | | + +--------+ + + + + Encounter Details +--------+---------+ + + + | Date | Type | Department | Care Team | Description | +--------+---------+ + + + | 04/19/ | Office | [facility] | Rocky Santos, | Chronic bilateral | | 2019 | Visit | PHYSIATRY [address] | [address] | low back pain | | | | [place], | [place], [place] | without sciatica | | | | [place] [address] | [address] | (Primary Dx); | | | | [phone] | | Hyperalgesia; | | | | [...] fro m the original. Rocky Santos MD [address] [place] [address], [address] [place], [place] [address] FAX: PHYSICAL MEDICINE AND REHABILITATION H&P CHIEF [...] Acute sinusitis 09/14/2013 AF (paroxysmal atrial fibrillation) ([facility]) Alcohol abuse quit in 05/2012; 40 year habit Anemia Angina of effort ([facility]) Arrhythmia Arthritis Bursitis of left shoulder Conjunctivitis COPD (chronic obstructive pulmonary disease) ([facility]) on albuterol COPD exacerbation ([facility]) Depression HONG (dyspnea on exertion) Folliculitis Full dentures upper & lower GERD (gastroesophageal reflux disease) Hemorrhoids, internal, with bleeding Hx of blood clots Hyperlipidemia on simvastatin Hypertension on clonidine and lisinopril Hypothyroidism 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 Right [facility] pain Spinal stenosis has tried cortisone injections Spondylolisthesis of cervical region Sputum culture positive for Scopulariopsis species Squamous cell carcinoma of lung ([facility]) 07/2013 right lower lobe Stroke ([facility]) 2006 Stroke ([facility]) 2007 left sided weakness Thyroid disease Unspecified visual disturbance Upper GI bleed 06/[address] [facility] Vitamin D deficiency Wears dentures PAST SURGICAL HISTORY: Past Surgical History: Procedure Laterality Date BLADDER SUSPENSION 2000 BRONCHOSCOPY 07/11/2014 EBUS with right hilar LN biopsy, [facility] Dr. Skokan BRONCHOSCOPY N/A 09/16/2013 R. Thorascopic Lower Lobectomy and Thoracic Lymphadenectomy; Laterality: N/A Chest Right S urgeon: José Miguel Mace Jr., MD; Location: [facility] MAIN OR CATARACT REMOVAL CERVICAL FUSION Posterior 04/06/2013 with decompression C4-C6 Surgeon: Silviano Cabrera MD Location: [facility] MAIN OR CERVICAL FUSION Anterior 01/19/2013 C4-6 Surgeon: Silviano Cabrera MD; Location: [facility] MAIN OR CHOLECYSTECTOMY 2001 COLONOSCOPY 06/2014 ENDOSCOPY [...] [facility] Arthroplasty; Surgeon: Giuliano Padilla MD; Location: [facility] MAIN O R INJECTION STEROIDAL Right 05/27/2012 L5 S1 TFESI INJECTION STEROIDAL Right 07/15/2012 Caudal Block with Cath Target R L5,S1 LOBECTOMY Right 09/16/2013 right lower lobe with bronchoscopy LUMBAR FUSION Anterior 03/29/2014 L4-5, L5-S1 Surgeon: Silviano Cabrera MD; Location: [facility] MAIN OR LUMBAR FUSION N/A 03/31/2014 with decompression; Surgeon: Silviano Cabrera MD; Location [facility] MAIN OR LUMBAR FUSION N/A 03/31/2014 L4-S1; Surgeon: Silviano Cabrera MD Location: [facility] MAIN OR LUNG BIOPSY Right 07/21/2013 right lower lobe SHOULDER SURGERY Right 12/2011 PENNY AND BSO 1974 THORACOSCOPY Right 09/16/2013 Surgeon: José Miguel Mace Jr., MD; Location: [facility] MAIN OR THUMB SURGERY 12/02/2011 TONGUE SURGERY benign per pt TUNNELED VENOUS PORT PLACEMENT N/A 07/28/2014 Procedure: Port Placement; Surgeon: Chalino Chiu MD; Location: [facility] MAIN OR CURRENT MEDICATIONS: Current Outpatient Medications [...] Supplies (NEBULIZER/TUBING/MOUTHPIECE) KIT Use as directed with Adaptive[employer] ulizer machine. Dx: COPD CASIE: lifetime 1 [...] has no apparent deficits with short or exterminator helper termite memory. She has appropriate fund of knowledge [...] in detail. Spinal cord stimulation uses fabrizio PolicyGeniusal deviceto send signals tothe nerve pathways inside [...] including neuropsyc hology consult. A small medical parasitologist sends signals to your spinal cord. These [...] | | | | | [place] [address] | | | | | | [phone] | | | | | | | | +--------+ + + + + | 06/08/ | Office | Physical Medicine | Rocky Santos, | | | 2019 | Visit | and Rehabilitation | MD [address] | | | | | | [place] | | | | | | [address] | | | | | | | | +--------+ + + + + | 06/16/ | Appointment | Pulmonology | Eveline Jaffe | | | 2019 | | | MD Nichole [address] | | | | | | [place] | | | | | | [place] [address] | | | | | | [phone] | | | | | | | | +--------+ + + + + | 06/16/ | Office | Pulmonology | Eveline Jaffe | | | 2019 | Visit | | MD Raul [address] | | | | | | [address] [place] | | | | | | [place] [address] | | | | | | [phone] | | | | | | | | +--------+ + + + + | 08/24/ | Office | Cardiology | Anisha Lopez DO | | | 2019 | Visit | | [address] | | | | | | [place] | | | | | | [address] | | | | | | | [...]
--- OUTSIDE RECORDS SUMMARY | ~2019-05-05 | XMS | Encounter Summary ---
Demographics + + + | Address | [address] | | | [place] [address] | + + + | Home Phone [...] [place] | | | | | [address] | | + + + + + Care Team Providers + +------+ + | Care Tube Mounter Name | Role | Phone | + +------+ + | Caitlin Chino MD | PCP | | + +------+ + Encounter Details +--------+ + + + + | Date | Type | Department | Care Team | Description | +--------+ + + + + | 10/28/ | Orders Only | [facility] | Santosh Smuner, | | | 2019 | | [address] [facility] | [address] | | | | | [place], [place] | [facility] | | | | | [address] | [place] [address] | | | | | [phone] | [phone] | | | | | | | [...] [place] | | | | | | [place] [address] | | | | | | [phone] | | | | | | | | +--------+ + + + + | 06/08/ | Office | Physical Medicine | Rocky Santos, | | | 2019 | Visit | and Rehabilitation | MD [address] | | | | | | [place] | | | | | | [address] | | | | | | | | +--------+ + + + + | 06/16/ | Appointment | Pulmonology | Eveline Jaffe | | 2019 | | | MD Nichole [address] | | | | | | [address] [place] | | | | | | [place] [address] | | | | | | [phone] | | | | | | | | +--------+ + + + + | 06/16/ | Office | Pulmonology | Eveline Jaffe | | | 2019 | Visit | | MD Raul [address] | | | | | | [address] [place] | | | | | | [place] [address] | | | | | | [phone] | | | | | | | | +--------+ + + + + | 08/24/ | Office | Cardiology | Anisha Lopez DO | | | 2019 | Visit | | [address] | | | | | | [place] | | | | | | [address] | | | | | | | [...]
--- OUTSIDE RECORDS SUMMARY | ~2019-05-05 | XMS | Encounter Summary ---
Demographics + + + | Address | [address] | | | [place] [address] | + + + | Home Phone [...] + + + | Author | [facility] | + + + | Organization | [facility] | + + + | Address | Unknown | + + + | Phone | Unavailable | + + + Support + + +---------+ + | Name | Relationship | Address | Phone | + + +---------+ + | Mirza Bee | ECON | Unknown | | + + +---------+ + Care Team Providers + +------+ + | Care Folder Seamer Name | Role | Phone | + [...] Rd | | | | | | [place] | | | | | | [address] | | | +--------+ + + + [...]
--- OUTSIDE RECORDS SUMMARY | ~2019-05-05 | XMS | Encounter Summary ---
Demographics + + + | Address | [address] | | | [place] [address] | + + + | Home Phone [...] [place] | | | | | [address] | | + + + + + Care Team Providers + +------+ + | Care Force Dispatcher Name | Role | Phone | + +------+ + | Caitlin Chino MD | PCP | | + +------+ + Encounter Details +--------+ + + + + | Date | Type | Department | Care Team | Description | +--------+ + + + + | 03/30/ | Hospital | [facility] | Rodney Worthy | Right wrist pain | | 2019 | Encounter | MED CTR [facility] XRAY | MD [address] | | | | | [address] [place] | [place] | | | | | [place] | [place] [address] | | | | | [address] | [phone] | | | | | [phone] | | | +--------+ + + + [...] | 2018 | Visit | | [address] | | | | | | [facility] | | | | | | [place] [address] | | | | | | [phone] | | | | | | | | +--------+ + + + + | 06/08/ | Office | Physical Medicine | Rocky Santos, | | | 2019 | Visit | and Rehabilitation | MD Nichole [address] | | | | | | [place] | | | | | | [address] | | | | | | | | +--------+ + + + + | 06/16/ | Appointment | Pulmonology | Eveline Jaffe | | | 2019 | | | MD Nichole [address] | | | | | | [address] [place] | | | | | | [place] [address] | | | | | | [phone] | | | | | | | | +--------+ + + + + | 06/16/ | Office | Pulmonology | Eveline Jaffe | | | 2019 | Visit | | MD Nichole [address] | | | | | | [address] [place] | | | | | | [place] [address] | | | | | | [phone] | | | | | | | | +--------+ + + + + | 08/24/ | Office | Cardiology | Anisha Lopez DO | | | 2019 | Visit | | [address] | | | | | | [place] | | | | | | [address] | | | | | | | [...] | | absent.Degenerative changes.Dictated and Signed by: Mathesu Kapadia MD Electronically | | signed: 03/30/2019 [...]
--- OUTSIDE RECORDS SUMMARY | ~2019-05-05 | XMS | Encounter Summary ---
Demographics + + + | Address | [address] | | | [place] [address] | + + + | Home Phone [...] [place] | | | | | [address] | | + + + + + Care Team Providers + +------+ + | Care Custom Stock Maker Name | Role | Phone | [...] + + | 04/13/ | Office | [facility] [place] | Claudia, | Pulmonary nodule | | 2012 | Visit | PULMONARY [address] | Ayana Looney MD | (Primary Dx) | | | | [address] [place], | | | | | | [place] [address] | | | | | | [phone] | | | +--------+---------+ + + + [...] MD [place] Garcia Pulmonary and Critical Care [facility] [address] [place], [address] HPI Thea Carmona is a 67 y.o. [...] arthritis on prednisone and methotrexate, Dr. 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 documented [...] | | | | | [place] [address] | | | | | | [phone] | | | | | | | | +--------+ + + + + | 06/08/ | Office | Physical Medicine | Rocky Santos, | | | 2019 | Visit | and Rehabilitation | MD [address]ole [address] | | | | | | [place] | | | | | | [address] | | | | | | | | +--------+ + + + + | 06/16/ | Appointment | Pulmonology | Eveline Jaffe | | 2019 | | | MD [address]ole [address] | | | | | | [address] | | | | | | [place] [address] | | | | | | [phone] | | | | | | | | +--------+ + + + + | 06/16/ | Office | Pulmonology | Eveline Jaffe | | | 2019 | Visit | | MD Raul [address] | | | | | | [address] [address] | | | | | | [place] [address] | | | | | | [phone] | | | | | | | | +--------+ + + + + | 08/24/ | Office | Cardiology | Anisha Lopez DO | | | 2019 | Visit | | [address] | | | | | | [place] | | | | | | [address] | | | | | | | | +--------+ + + + + documented as of this encounter Results XR Chest PA and Lateral (04/13/2013 3:30 PM PST) + + | Specimen | + + | | + + + + + | Narrative | Performed At | + + + | [facility] | [facility] | | Department [address] [place] [address] | [facility] | | [ rep [address]] [ rep [facility] | | [facility]] Signed | - IMAGING | | | | | Patient Name: THEA CARMONA Colette Physician: | | | OFFE. : 1945 Age: 67 Sex: F Unit #: [id number] | | | Exam Date: 04/13/13 Location: LAB | | | Report #: [id number] Page: | | | %(RAD)RES..mtdd.print.filter("pg") of %(RAD) | | | RES..mtdd.print.filter("tpg") | | | | | | Accession Number: [id number] | | | CHEST, PA AND LATERAL, [...] | | | Transcribed Date/Time: 04/13/2013 17:08 Nuclear Operator: | | | <<Signature on File>> | | | Matheus | | | MD Kang04/13/13 5026 <Electronically signed by Matheus Kapadia MD> | | | Matheus Kapadia MD 04/13/13 4912 Nuclear Operator: Jesica | | | [email or web address]/13/13 1796 Ayana Taylor MD | | | | | + + + + + + + + | Performing | Address | City/State/Zipcode | Phone Number | | Organization | | | | + + + + + | [facility] | [address] | [place] | [phone] | | [facility] | | [address] | | | - IMAGING | | [...] + | [facility] | [address] | [place], [place] | [phone] | | [facility] | | [address] | | | - LABORATORY | | | | + + + + + | [facility] | [address] | [place] | | | [facility] | | [address] | | | - LABORATORY | | | | + + + + + documented in this encounter Visit Diagnoses + + | Diagnosis | + + | Pulmonary nodule - Primary Solitary pulmonary nodule | + + documented in this encounter
--- OUTSIDE RECORDS SUMMARY | ~2019-05-05 | XMS | Encounter Summary ---
Demographics + + + | Address | [address] | | | [place] [address] | + + + | Home Phone [...] [place] | | | | | [address] | | + + + + + Care Team Providers + +------+ + | Care Wrapper Stripper Name | Role | Phone | + +------+ + | Caitlin Chino MD | PCP | | + +------+ + Encounter Details +--------+ + + + + | Date | Type | Department | Care Team | Description | +--------+ + + + + | 03/30/ | Hospital | [facility] | Rodney Worthy | Right wrist pain | | 2019 | Encounter | MED [facility] X[facility] | MD [address] | | | | | [address] [place] | [place] [facility] | | | | | [place] | [place] [address] | | | | | [address] | [phone] | | | | | [phone] | | | +--------+ + + + [...] | 2018 | Visit | | [address]I [address] | | | | | | [facility] | | | | | | [place] [address] | | | | | | [phone] | | | | | | | | +--------+ + + + + | 06/08/ | Office | Physical Medicine | Rocky Santos, | | | 2019 | Visit | and Rehabilitation | MD Nichole [address] | | | | | | [place] | | | | | | [address] | | | | | | | | +--------+ + + + + | 06/16/ | Appointment | Pulmonology | Eveline Jaffe | | | 2019 | | | MD [address] | | | | | | [address] [place] | | | | | | [place] [address] | | | | | | [phone] | | | | | | | | +--------+ + + + + | 06/16/ | Office | Pulmonology | Eveline Jaffe | | | 2019 | Visit | | MD [address] | | | | | | [address] [place] | | | | | | [place] [address] | | | | | | [phone] | | | | | | | | +--------+ + + + + | 08/24/ | Office | Cardiology | Anisha Lpoez DO | | | 2019 | Visit | | [address] | | | | | | [place] | | | | | | [address] | | | | | | | [...]
--- OUTSIDE RECORDS SUMMARY | ~2019-05-05 | XMS | Encounter Summary ---
Demographics + + + | Address | [address] | | | [place] [address] | + + + | Home Phone [...] [place] | | | | | [address] | | + + + + + Care Team Providers + +------+ + | Care Propeller Inspector Name | Role | Phone | [...] | Authorized | | | Diagnoses | [place], | [address] | | | | | Impingement | [facility] | | | | | syndrome of | Yarsanism, | [address] | | | | | left | MD [address] | | | | | shoulder | [address] | [place], [place] | | | | | Muscle left | [place], | [address] | | | | | arm weakness | [place] | Phone: | | | | | Procedures | [address] | [phone] | | | | | MRI | Phone: | Fax: | | | | | Shoulder | [phone] | [phone] | | | | | Left wo | Fax: | | | | | | Contrast | [phone] | | + +--------+ + + + [...] | | | | shoulder | [place] [address] | [place] | | | | | | Phone: | [address] | | | | | | [phone] | Phone: | | | | | | Fax: | [phone] | | | | | | [phone] | Fax: | | | | | | | [phone] | + +--------+ + + + + Encounter Details +--------+---------+ + + + | Date | Type | Department | Care Team | Description | +--------+---------+ + + + | 03/01/ | Office | [facility] | Rodney Worthy | Impingement syndrome | | 2019 | Visit | ORTHOPEDIC SURGERY | MD [address] | of left shoulder | | | | [address] | [address] [facility] | (Primary Dx); Muscle | | | | [place], [place] | [place] [address] | left arm weakness | | | | [address] | [phone] | | | | | [phone] | | | +--------+---------+ + + + [...] strength Fever or chills Date Last Reviewed: 12/31/201519999364-0531 [employer] [place] [address]. All righ ts reserved. This information is not intended as a substitute for professional medical care. Always follow your healthcare professional's instructions. documented in this encounter Progress Notes Rodney Worthy MD - 03/01/2019 2:30 PM PDTFormatting of this note might be dif ferent from the original. [facility] RETURN CLINIC VISIT Pt. Name/Age/: Thea Carmona [...] disease Arthritis COPD (chronic obstructive pulmonary disease) ([facility]) on albuterol Depression HONG (dyspnea on exertion) Full dentures upper & lower GERD (gastroesophageal reflux disease) Hyperlipidemia on simvastatin Hypertension on clonidine and lisinopril Hypothyroidism Obesity MARCE (obstructive sleep apnea) no CPAP Osteoporosis Pneumonia 2008 hospitalized 5 days Recurrent squamous cell carcinoma of lung ([facility]) 07/11/[address] and RUL nodule Rheumatoid arthritis(714.0) on prednisone and methotrexate, Dr. Lewis Carson Spinal stenosis has tried cortisone injections Spondylolisthesis of cervical region Sputum culture positive for Scopulariopsis species Squamous cell carcinoma of lung ([facility]) 07/2013 right lower lobe Stroke ([facility]) 2006 Stroke ([facility]) 2007 left sided weakness Upper GI bleed 06/2014 admitted [place] Wears dentures Past Surgical History: Procedure Laterality Date BACK SURGERY 03/2014 BLADDER SUSPENSION BRONCHOSCOPY 07/11/2014 EBUS with right hilar LN biopsy, [facility] CERVICAL SPINE SURGERY 2012 CHOLECYSTECTOMY COLONOSCOPY 06/2014 ENDOSCOPY FINGER TRIGGER RELEASE Left 12/14/2018 Procedure: Left Thumb Trigger Finger Release, Left Index Trigger Finger Release, Left Long Trigger Finger Release, Left Ring Trigger Finger Release; Surgeon: Giulinao Padilla MD; Lo cation: [facility] MAIN OR HAND ARTHROPLASTY Left 03/20/2015 Procedure: Left 1st C.M.C. Arthroplasty; Surgeon: Giuliano Padilla MD; Location: [facility] MAIN OR HAND ARTHROPLASTY Right 10/27/2017 Procedure: Right 1st CMC Arthroplasty; Surgeon: Giuliano Padilla MD; Location: [facility] MAIN O R HYSTERECTOMY LOBECTOMY 09/16/13 right lower lobe LUNG BIOPSY 07/21/13 right lower lobe SHOULDER SURGERY SHOULDER SURGERY right shoulder THUMB SURGERY TONGUE SURGERY benign per pt TUNNELED VENOUS PORT PLACEMENT N/A 07/28/2014 Procedure: Port Placement; Surgeon: Chalino Chiu MD; Location: 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 I appreciate [...] | | | | | [place] [address] | | | | | | [phone] | | | | | | | | +--------+ + + + + | 06/08/ | Office | Physical Medicine | Rocky Santos | | | 2019 | Visit | and Rehabilitation | [address] | | | | | | [place] | | | | | | [address] | | | | | | | | +--------+ + + + + | 06/16/ | Appointment | Pulmonology | Eveline Jaffe | | 2019 | | | MD [address] | | | | | | [address] [place] | | | | | | [place] [address] | | | | | | [phone] | | | | | | | | +--------+ + + + + | 06/16/ | Office | Pulmonology | Eveline Jaffe | | | 2019 | Visit | | MD [address] | | | | | | [address] [place] | | | | | | [place], [place] [address] | | | | | | [phone] | | | | | | | | +--------+ + + + + | 08/24/ | Office | Cardiology | Anisha Lopez DO | | | 2019 | Visit | | [address] | | | | | | [place] | | | | | | [address] | | | | | | | [...]
--- OUTSIDE RECORDS SUMMARY | ~2019-05-05 | XMS | Encounter Summary ---
Demographics + + + | Address | [address] | | | [place] [address] | + + + | Home Phone [...] [place] | | | | | [address] | | + + + + + Care Team Providers + +------+ + | Care Pyroglazer Name | Role | Phone | + +------+ + | Davis Ivan MD | PCP | | + +------+ + Encounter Details +--------+ + + + + | Date | Type | Department | Care Team | Description | +--------+ + + + + | 06/14/ | Hospital | [facility] | Conversion | Pain | | 2014 | Encounter | CONVERSION [address] | Transaction, | | | | | [address] | Provider Unknown | | | | | [place] | [phone] | | | | | [address] | | | | | | [phone] | | | +--------+ + + + [...] | 2018 | Visit | | [address] | | | | | | [place] | | | | | | [place] [address] | | | | | | [phone] | | | | | | | | +--------+ + + + + | 06/08/ | Office | Physical Medicine | Rocky Santos, | | | 2019 | Visit | and Rehabilitation | MD [address] | | | | | | [place] | | | | | | [address] | | | | | | | | +--------+ + + + + | 06/16/ | Appointment | Pulmonology | Eveline Jaffe | | | 2019 | | | MD [address] | | | | | | [address] [place] | | | | | | [place] [address] | | | | | | [phone] | | | | | | | | +--------+ + + + + | 06/16/ | Office | Pulmonology | Eveline Jaffe | | | 2019 | Visit | | MD [address] | | | | | | [address] [place] | | | | | | [place] [address] | | | | | | [phone] | | | | | | | | +--------+ + + + + | 08/24/ | Office | Cardiology | Anisha Lopez DO | | | 2019 | Visit | | [address] | | | | | | [place], [place] | | | | | | [address] | | | | | | | [...]
--- OUTSIDE RECORDS SUMMARY | ~2019-05-05 | XMS | Encounter Summary ---
Demographics + + + | Address | [address] | | | [place] [address] | + + + | Home Phone [...] [place] | | | | | [address] | | + + + + + Care Team Providers + +------+ + | Care Buzzle Buffer Name | Role | Phone | + [...] + + | 12/06/ | Telephone | [facility] | Giuliano Padilla, | Other | | 2018 | | ORTHOPEDIC SURGERY | [address] [facility] | | | | | [address] [facility] | [place], [place] | | | | | [place], [place] | [address] | | | | | [address] | | | | | | [phone] | | | +--------+ + + + [...] | | | | | [place] [address] | | | | | | [phone] | | | | | | | | +--------+ + + + + | 06/08/ | Office | Physical Medicine | Rocky Santos, | | | 2019 | Visit | and Rehabilitation | [address] | | | | | | [place] | | | | | | [address] | | | | | | | | +--------+ + + + + | 06/16/ | Appointment | Pulmonology | Eveline Jaffe | | | 2019 | | | MD Raul [address] | | | | | | [address] [place] | | | | | | [place] [address] | | | | | | [phone] | | | | | | | | +--------+ + + + + | 06/16/ | Office | Pulmonology | Eveline Jaffe | | | 2019 | Visit | | MD [address] | | | | | | [address] [place] | | | | | | [place] [address] | | | | | | [phone] | | | | | | | | +--------+ + + + + | 08/24/ | Office | Cardiology | Anisha Lopez DO | | | 2019 | Visit | | [address] | | | | | | [place] | | | | | | [address] | | | | | | | [...]
--- OUTSIDE RECORDS SUMMARY | ~2019-05-05 | XMS | Encounter Summary ---
Demographics + + + | Address | [address] | | | [place] [address] | + + + | Home Phone [...] [place] | | | | | [address] | | + + + + + Care Team Providers + +------+ + | Care Automatic Stacker Name | Role | Phone | [...] + + | 09/11/ | Hospital | [facility] | Adelita Lu MD | Recurrent squamous | | 2015 | Encounter | MED CTR CHEMO | [address] | cell carcinoma of | | | | INFUSION [address] | [place], [place] | lung, right (HCC) | | | | [place], | [address] | (Primary Dx) | | | | [place] [address] | [phone] | | | | | [phone] | | | +--------+ + + + [...] | | | | | [place] [address] | | | | | | [phone] | | | | | | | | +--------+ + + + + | 06/08/ | Office | Physical Medicine | Rocky Santos, | | | 2019 | Visit | and Rehabilitation | MD [address]ole [address] | | | | | | [place] | | | | | | [address] | | | | | | | | +--------+ + + + + | 06/16/ | Appointment | Pulmonology | Eveline Jaffe | | | 2019 | | | MD Nich[address] Carter | | | | | | [address] [place] | | | | | | [place] [address] | | | | | | [phone] | | | | | | | | +--------+ + + + + | 06/16/ | Office | Pulmonology | Eveline Jaffe | | | 2019 | Visit | | MD Nichole Carter | | | | | | [address] [place] | | | | | | [place] [address] | | | | | | [phone] | | | | | | | | +--------+ + + + + | 08/24/ | Office | Cardiology | Anisha Lopez DO | | | 2019 | Visit | | [address] | | | | | | [place] | | | | | | [address] | | | | | | | | +--------+ + + + + documented as of this encounter Visit Diagnoses + + | Diagnosis | + + | Recurrent squamous cell carcinoma of lung, right (HCC) - Primary | + + documented in this encounter"
--- OUTSIDE RECORDS SUMMARY | ~2019-05-05 | XMS | Encounter Summary ---
Demographics + + + | Address | [address] | | | [place] [address] | + + + | Home Phone [...] [place] | | | | | [address] | | + + + + + Care Team Providers + +------+ + | Care Pickling Drum Operator Name | Role | Phone | + +------+ + | Davis Ivan MD | PCP | | + +------+ + Encounter Details +--------+ + + + + | Date | Type | Department | Care Team | Description | +--------+ + + + + | 06/14/ | Hospital | [facility] | Conversion | Pain | | 2014 | Encounter | CONVERSION [address] | Transaction, | | | | | [address] | Provider Unknown | | | | | [place] | [phone] | | | | | [address] | | | | | | [phone] | | | +--------+ + + + [...] | 2018 | Visit | | [address] | | | | | | [place] | | | | | | [place] [address] | | | | | | [phone] | | | | | | | | +--------+ + + + + | 06/08/ | Office | Physical Medicine | Rocky Santos, | | | 2019 | Visit | and Rehabilitation | MD [address] | | | | | | [place] | | | | | | [address] | | | | | | | | +--------+ + + + + | 06/16/ | Appointment | Pulmonology | Eveline Jaffe | | | 2019 | | | MD [address] | | | | | | [address] [place] | | | | | | [place] [address] | | | | | | [phone] | | | | | | | | +--------+ + + + + | 06/16/ | Office | Pulmonology | Eveline Jaffe | | | 2019 | Visit | | MD [address] | | | | | | [address] [place] | | | | | | [place] [address] | | | | | | [phone] | | | | | | | | +--------+ + + + + | 08/24/ | Office | Cardiology | Anisha Lpoez DO | | | 2019 | Visit | | [address] | | | | | | [place], [place] | | | | | | [address] | | | | | | | [...]
--- OUTSIDE RECORDS SUMMARY | ~2019-05-05 | XMS | Encounter Summary ---
Demographics + + + | Address | [address] | | | [place] [address] | + + + | Home Phone [...] [place] | | | | | [address] | | + + + + + Care Team Providers + +------+ + | Care Mangle Catcher Name | Role | Phone | + [...] [address] | | | | | [phone] | [place] [address] | | +--------+ + + + + [...] | | | | | [place] [address] | | | | | | [phone] | | | | | | | | +--------+ + + + + | 06/08/ | Office | Physical Medicine | Rocky Santos | | | 2019 | Visit | and Rehabilitation | [address] | | | | | | [place] | | | | | | [address] | | | | | | | | +--------+ + + + + | 06/16/ | Appointment | Pulmonology | Eveline Jaffe | | 2019 | | | MD [address] | | | | | | [address] | | | | | | [place] [address] | | | | | | [phone] | | | | | | | | +--------+ + + + + | 06/16/ | Office | Pulmonology | Eveline Jaffe | | | 2019 | Visit | | MD Raul [address] | | | | | | [address] | | | | | | [place] [address] | | | | | | [phone] | | | | | | | | +--------+ + + + + | 08/24/ | Office | Cardiology | Anisha Lopez DO | | | 2019 | Visit | | [address] | | | | | | [place] | | | | | | [address] | | | | | | | [...]
--- OUTSIDE RECORDS SUMMARY | ~2019-05-05 | XMS | Encounter Summary ---
Demographics + + + | Address | [address] | | | [place] [address] | + + + | Home Phone [...] [place] | | | | | [address] | | + + + + + Care Team Providers + +------+ + | Care Meat Slicer Name | Role | Phone | + [...] + + | 08/29/ | Hospital | [facility] | Adelita Lu MD | 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 | | | | INF[address] | [place], [place] | lung, unspecified | | | | [place], | [address] | laterality (HCC) | | | | [place] [address] | [phone] | | | | | [phone] | | | +--------+ + + + [...] 12:57 PM PDTPt arrived via WC by metal room dental technician accessed and deaccessed per protocol discharged [...] | | | | [facility] | | | | | | [place] [address] | | | | | | [phone] | | | | | | | | +--------+ + + + + | 06/08/ | Office | Physical Medicine | Rocky Santos, | | | 2019 | Visit | and Rehabilitation | MD [address] | | | | | | [place] | | | | | | [address] | | | | | | | | +--------+ + + + + | 06/16/ | Appointment | Pulmonology | Eveline Jaffe | | | 2019 | | | MD Nichole Carter | | | | | | [address] [place] | | | | | | [place] [address] | | | | | | [phone] | | | | | | | | +--------+ + + + + | 06/16/ | Office | Pulmonology | Eveline Jaffe | | | 2019 | Visit | | MD Nichole Carter | | | | | | [address] [place] | | | | | | [place], [place] [address] | | | | | | [phone] | | | | | | | | +--------+ + + + + | 08/24/ | Office | Cardiology | Anisha Lopez DO | | | 2019 | Visit | | [address] | | | | | | [place] | | | | | | [address] | | | | | | | [...]
--- OUTSIDE RECORDS SUMMARY | ~2019-05-05 | XMS | Encounter Summary ---
Demographics + + + | Address | [address] | | | [place] [address] | + + + | Home Phone [...] [place] | | | | | [address] | | + + + + + Care Team Providers + +------+ + | Care Communication Instructor Name | Role | Phone | + +------+ + | Davis Ivan MD | PCP | | + +------+ + Encounter Details +--------+ + + + + | Date | Type | Department | Care Team | Description | +--------+ + + + + | 07/12/ | Hospital | [facility] | Conversion | Pain | | 2014 | Encounter | CONVERSION [address] | Transaction, | | | | | [address] | Provider Unknown | | | | | [place] | [phone] | | | | | [address] | | | | | | [phone] | | | +--------+ + + + [...] | 2018 | Visit | | [address] | | | | | | [place] | | | | | | [place] [address] | | | | | | [phone] | | | | | | | | +--------+ + + + + | 06/08/ | Office | Physical Medicine | Rocky Santos, | | | 2019 | Visit | and Rehabilitation | MD [address] | | | | | | [place] | | | | | | [address] | | | | | | | | +--------+ + + + + | 06/16/ | Appointment | Pulmonology | Eveline Jaffe | | | 2019 | | | MD [address] | | | | | | [address] [place] | | | | | | [place] [address] | | | | | | [phone] | | | | | | | | +--------+ + + + + | 06/16/ | Office | Pulmonology | Eveline Jaffe | | | 2019 | Visit | | MD [address] | | | | | | [address] [place] | | | | | | [place] [address] | | | | | | [phone] | | | | | | | | +--------+ + + + + | 08/24/ | Office | Cardiology | Anisha Lopez DO | | | 2019 | Visit | | [address] | | | | | | [place] | | | | | | [address] | | | | | | | [...]
--- OUTSIDE RECORDS SUMMARY | ~2019-05-05 | XMS | Encounter Summary ---
Demographics + + + | Address | [address] | | | [place] [address] | + + + | Home Phone [...] [place] | | | | | [address] | | + + + + + Care Team Providers + +------+ + | Care Coffee Attendant Name | Role | Phone | + +------+ + | Davis Ivan MD | PCP | | + +------+ + Encounter Details +--------+ + + + + | Date | Type | Department | Care Team | Description | +--------+ + + + + | 09/07/ | Hospital | [facility] | Offenstein, | Leg edema, left | | 2015 | Encounter | MED CTR ULTRASOUND | Ayana Looney MD | | | | | [address] | Marilee Gallardo | | | | | [place] | A, Technologist | | | | | [address] | [place] | | | | | [phone] | [address] | | +--------+ + + + + [...] | | | | | | [place] [address] | | | | | | [phone] | | | | | | | | +--------+ + + + + | 06/08/ | Office | Physical Medicine | Rocky Santos, | | | 2019 | Visit | and Rehabilitation | MD [address] | | | | | | [place] | | | | | | [address] | | | | | | | | +--------+ + + + + | 06/16/ | Appointment | Pulmonology | Eveline Jaffe | | | 2019 | | | MD [address] | | | | | | [address] | | | | | | [place] [address] | | | | | | [phone] | | | | | | | | +--------+ + + + + | 06/16/ | Office | Pulmonology | Ld Eveline | | | 2019 | Visit | | MD Raul [address] | | | | | | [address] | | | | | | [place] [address] | | | | | | [phone] | | | | | | | | +--------+ + + + + | 08/24/ | Office | Cardiology | Anisha Lopez DO | | | 2019 | Visit | | [address] | | | | | | [place] | | | | | | [address] | | | | | | | [...] | Claudia's nurse 1604 p.m. by the career professional. Dictated and | | | Signed by: [...] report was called | | to Dr. Ayaan Taylor's nurse 1604 p.m. bythe career professional.Dictated and Signed by: | | Matheus Kapadia [...] Taylor's nurse 1604 p.m. by | |the career professional. | | | |Dictated and Signed by: Matheus Kapadia MD | | Electronically signed: 09/07/2014 4:43 PM | + + + + + + + | Performing | Address | City/State/Zipcode | Phone Number | | Organization | | | | + + + + + | [facility] | [address] | [place] | [phone] | | [facility] | | [address] | | | - IMAGING | | | | + + + + + documented in this encounter Visit Diagnoses + + | Diagnosis | + + | Leg edema, left Edema | + + documented in this encounter"
--- OUTSIDE RECORDS SUMMARY | ~2019-05-05 | XMS | Encounter Summary ---
Demographics + + + | Address | [address] | | | [place] [address] | + + + | Home Phone [...] [place] | | | | | [address] | | + + + + + Care Team Providers + +------+ + | Care Spinning Machine Tender Name | Role | Phone | + +------+ + | Davis Ivan MD | PCP | | + +------+ + Encounter Details +--------+ + + + + | Date | Type | Department | Care Team | Description | +--------+ + + + + | 08/23/ | Hospital | [facility] | Conversion | Pain | | 2013 | Encounter | CONVERSION [address] | Transaction, | | | | | [address] | Provider Unknown | | | | | [place] | [phone] | | | | | [address] | | | | | | [phone] | | | +--------+ + + + [...] | | | | | [place] [address] | | | | | | [phone] | | | | | | | | +--------+ + + + + | 06/08/ | Office | Physical Medicine | Rocky Santos, | | | 2019 | Visit | and Rehabilitation | MD [address] | | | | | | [place] | | | | | | [address] | | | | | | | | +--------+ + + + + | 06/16/ | Appointment | Pulmonology | Eveline Jaffe | | 2019 | | | MD [address] | | | | | | [address] | | | | | | [place] [address] | | | | | | [phone] | | | | | | | | +--------+ + + + + | 06/16/ | Office | Pulmonology | Eveline Jaffe | | | 2019 | Visit | | MD Raul [address] | | | | | | [address] | | | | | | [place] [address] | | | | | | [phone] | | | | | | | | +--------+ + + + + | 08/24/ | Office | Cardiology | Anisha Lopez DO | | | 2019 | Visit | | [address] | | | | | | [place] | | | | | | [address] | | | | | | | [...]
--- OUTSIDE RECORDS SUMMARY | ~2019-05-05 | XMS | Encounter Summary ---
Demographics + + + | Address | [address] | | | [place] [address] | + + + | Home Phone [...] [place] | | | | | [address] | | + + + + + Care Team Providers + +------+ + | Care Rail Grinder Name | Role | Phone | + +------+ + PCP | Unavailable | + +------+ + Encounter Details +--------+ + + + + | Date | Type | Department | Care Team | Description | +--------+ + + + + | 01/13/ | Hospital | [facility] | Conversion | | | 2012 | Encounter | CENTER [facility] | Transaction, | | | | | CLINIC [address] | Provider Unknown | | | | | [address] [place], [place] | | | | | | [address] | | | | | | [phone] | | | +--------+ + + + [...] | | | | | [place] [address] | | | | | | [phone] | | | | | | | | +--------+ + + + + | 06/08/ | Office | Physical Medicine | Rocky Santos, | | | 2019 | Visit | and Rehabilitation | MD [address] | | | | | | [place] | | | | | | [address] | | | | | | | | +--------+ + + + + | 06/16/ | Appointment | Pulmonology | Eveline Jaffe | | 2019 | | | MD [address] | | | | | | [address] | | | | | | [place] [address] | | | | | | [phone] | | | | | | | | +--------+ + + + + | 06/16/ | Office | Pulmonology | Eveline Jaffe | | | 2019 | Visit | | MD Raul [address] | | | | | | [address] | | | | | | [place] [address] | | | | | | [phone] | | | | | | | | +--------+ + + + + | 08/24/ | Office | Cardiology | Anisha Lopez DO | | | 2019 | Visit | | [address] | | | | | | [place] | | | | | | [address] | | | | | | | [...] Conversion - 01/21/2019 4:40 PM PDT THEA MCWILLIMAS CHEST 2 VIEW FRONTAL | | AND [...] EXTERNAL LAB | | Testing performed at [address];[place] [address] MRSA PCR | | | NEGATIVE Testing performed at | | | [address];[place] [address] | | + + + + +---------+ + + | Performing | Address | City/State/Zipcode | Phone Number | | Organization | | | | + +---------+ + + | EXTERNAL LAB | | | | + +---------+ + + documented in this encounter Visit Diagnoses Not on filedocumented in this encounter"
--- OUTSIDE RECORDS SUMMARY | ~2019-05-05 | XMS | Encounter Summary ---
Demographics + + + | Address | [address] | | | [place] [address] | + + + | Home Phone [...] [place] | | | | | [address] | | + + + + + Care Team Providers + +------+ + | Care Supervisor Underwriting Clerks Name | Role | Phone | + [...] | | | | | | [address] | [place] | | | | | | [address] | [facility] | | | | | | [place], | [place] | | | | | | [place] [address] | [address] Phone: | | | | | | Phone: | [phone] | | | | | | [phone] | Fax: | | | | | | Fax: | [phone] | | | | | | [phone] | | +--------+--------+ + + + + [...] | (Primary Dx) | | | | [place], | [address] [place] | | | | | [place] [address] | [place] [address] | | | | | [phone] | [phone] | | | | | | | [...] | | | | | | [facility] | | | | | | [place] [address] | | | | | | [phone] | | | | | | | | +--------+ + + + + | 06/08/ | Office | Physical Medicine | Rocky Santos, | | | 2019 | Visit | and Rehabilitation | MD Nichole Landis | | | | | | [place] | | | | | | [address] | | | | | | | | +--------+ + + + + | 06/16/ | Appointment | Pulmonology | Eveline Jaffe | | | 2019 | | | MD Nichole Carter | | | | | | [address] | | | | | | [place] [address] | | | | | | [phone] | | | | | | | | +--------+ + + + + | 06/16/ | Office | Pulmonology | Eveline Jaffe | | | 2019 | Visit | | MD Raul [address] | | | | | | [address] [place] | | | | | | [place] [address] | | | | | | [phone] | | | | | | | | +--------+ + + + + | 08/24/ | Office | Cardiology | Anisha Lopez DO | | | 2019 | Visit | | [address] | | | | | | [place] | | | | | | [id number] | | | | | | | [...]
--- OUTSIDE RECORDS SUMMARY | ~2019-05-05 | XMS | Encounter Summary ---
Demographics + + + | Address | [address] | | | [place] [address] | + + + | Home Phone [...] [place] | | | | | [address] | | + + + + + Care Team Providers + +------+ + | Care Comic Book Designer Name | Role | Phone | [...] + + | 09/12/ | Hospital | [facility] | Adelita Lu MD | 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 | | | | INFUSION [address] | [place], [place] | lung, unspecified | | | | [place], | [address] | laterality (HCC); | | | | [place] [address] | [phone] | Pulmonary nodules | | | | [phone] | | | +--------+ + + + [...] | 2018 | Visit | | [address] | | | | | | [facility] | | | | | | [place] [address] | | | | | | [phone] | | | | | | | | +--------+ + + + + | 06/08/ | Office | Physical Medicine | Rocky Santos, | | | 2019 | Visit | and Rehabilitation | MD Varela [address] | | | | | | [place] | | | | | | [address] | | | | | | | | +--------+ + + + + | 06/16/ | Appointment | Pulmonology | Eveline Jaffe | | | 2019 | | | MD Nichole Carter [address] | | | | | | [address] [place] | | | | | | [place] [address] | | | | | | [phone] | | | | | | | | +--------+ + + + + | 06/16/ | Office | Pulmonology | Eveline Jaffe | | | 2019 | Visit | | MD Nichole Carter [address] | | | | | | [address] [place] | | | | | | [place] [address] | | | | | | [phone] | | | | | | | | +--------+ + + + + | 08/24/ | Office | Cardiology | Anisha Lopez DO | | | 2019 | Visit | | [address] | | | | | | [place] | | | | | | [address] | | | | | | | [...] + | [facility] | [address] | [place] | [phone] | | [facility] | | [address] | | | - LABORATORY | | [...] mL/min/1.73m2 | [facility] | | | [place] | RATE,ESTIMATED | | MEDICAL | | | | mL/min/1.66e4Vxhm than | | CENTER - | | [...] [address] | [place] | [phone] | | [facility] | | [address] | | | - LABORATORY | | [...]
--- OUTSIDE RECORDS SUMMARY | ~2019-05-05 | XMS | Encounter Summary ---
Demographics + + + | Address | [address] | | | [place] [address] | + + + | Home Phone [...] [place] | | | | | [address] | | + + + + + Care Team Providers + +------+ + | Care Supervisor Cook Room Name | Role | Phone | [...] + | 03/08/ | [facility] [place] | [place], | COPD (chronic | | 2014 | Visit | PULMONARY [address] | Ayana Looney MD | obstructive | | | | [place], | | pulmonary disease) | | | | [place] [address] | | (Primary Dx); | | | | [phone] | | Gastroesophageal | | | | [...] COPD (chronic obstructive pulmonary disease) ([facility]) on albuterol Spondylolisthesis of cervical region Spinal stenosis has tried cortisone injections Osteoporosis Depression Pneumonia 2008 hospitalized 5 days Rheumatoid arthritis(714.0) ([facility]) on prednisone and methotrexate, Dr. 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 3. Recurrent squamous cell carcinoma of lung, [...] made to ensure accuracy; however, inadvertent computerized shrimp cleaner errors may be pre sent. documented in this encounter Plan of Treatment +--------+ + + + + | Date | Type | Specialty | Care Team | Description | +--------+ + + + + | 05/30/ | Office | Rheumatology | Santosh Sumner, | | | 2019 | Visit | | [address] | | | | | | [facility] | | | | | | [place] [address] | | | | | | [phone] | | | | | | | | +--------+ + + + + | 06/08/ | Office | Physical Medicine | Rocky Santos, | | | 2019 | Visit | and Rehabilitation | MD Nichole Hind[address] | | | | | | [place] | | | | | | [address] | | | | | | | | +--------+ + + + + | 06/16/ | Appointment | Pulmonology | Eveline Jaffe | | | 2019 | | | MD Nichole Carter [address] | | | | | | [address] [place] | | | | | | [place] [address] | | | | | | [phone] | | | | | | | | +--------+ + + + + | 06/16/ | Office | Pulmonology | Eveline Jaffe | | | 2019 | Visit | | MD Nichole Carter [address] | | | | | | [address] [place] | | | | | | [place] [address] | | | | | | [phone] | | | | | | | | +--------+ + + + + | 08/24/ | Office | Cardiology | Anisha Lopez | | | 2019 | Visit | | [address] | | | | | | [place] | | | | | | [address] | | | | | | | [...]
--- OUTSIDE RECORDS SUMMARY | ~2019-05-05 | XMS | Encounter Summary ---
Demographics + + + | Address | [address] | | | [place] [address] | + + + | Home Phone [...] [place] | | | | | [address] | | + + + + + Care Team Providers + +------+ + | Care Health And Human Performance Professor Name | Role | Phone | [...] + + | 08/04/ | Hospital | [facility] | Jimmy Banegas DO | | | 2014 | Encounter | MED CTR RADIATION | [address] | | | | | ONCOLOGY [address] | [place] | | | | | [place], | [address] | | | | | [place] [address] | | | | | | [phone] | | | +--------+ + + + [...] | | | | | [place] [address] | | | | | | [phone] | | | | | | | | +--------+ + + + + | 06/08/ | Office | Physical Medicine | Rocky Santos, | | | 2019 | Visit | and Rehabilitation | [address] | | | | | | [place] | | | | | | [address] | | | | | | | | +--------+ + + + + | 06/16/ | Appointment | Pulmonology | Eveline Jaffe | | | 2019 | | | MD Nichole Carter [address] | | | | | | [address] [place] | | | | | | [place] [address] | | | | | | [phone] | | | | | | | | +--------+ + + + + | 06/16/ | Office | Pulmonology | Eveline Jaffe | | | 2019 | Visit | | MD Nichole Carter | | | | | | [address] [place] | | | | | | [place] [address] | | | | | | [phone] | | | | | | | | +--------+ + + + + | 08/24/ | Office | Cardiology | Anisha Lopez DO | | | 2019 | Visit | | [address] | | | | | | [place] | | | | | | [id number] | | | | | | | | +--------+ + + + + documented as of this encounter Visit Diagnoses Not on filedocumented in this encounter"
--- OUTSIDE RECORDS SUMMARY | ~2019-05-05 | XMS | Encounter Summary ---
Demographics + + + | Address | [address] | | | [place] [address] | + + + | Home Phone [...] [place] | | | | | [address] | | + + + + + Care Team Providers + +------+ + | Care Evp Head Of [employer] Experience Strategy Name | Role | Phone | + [...] [address] | | | | | [phone] | [place] [address] | | +--------+ + + + + [...] | | | | | [place] [address] | | | | | | [phone] | | | | | | | | +--------+ + + + + | 06/08/ | Office | Physical Medicine | Rocky Santos | | | 2019 | Visit | and Rehabilitation | MD Nichole Landis | | | | | | [place] | | | | | | [address] | | | | | | | | +--------+ + + + + | 06/16/ | Appointment | Pulmonology | Eveline Jaffe | | 2019 | | | MD Nichole Carter [address] | | | | | | [address] | | | | | | [place] [address] | | | | | | [phone] | | | | | | | | +--------+ + + + + | 06/16/ | Office | Pulmonology | Eveline Jaffe | | | 2019 | Visit | | MD Raul [address] | | | | | | [place] [address] | | | | | | [place] [address] | | | | | | [phone] | | | | | | | | +--------+ + + + + | 08/24/ | Office | Cardiology | Anisha Lopez DO | | | 2019 | Visit | | [address] | | | | | | [place] | | | | | | [address] | | | | | | | [...]
--- OUTSIDE RECORDS SUMMARY | ~2019-05-05 | XMS | Encounter Summary ---
Demographics + + + | Address | [address] | | | [place] [address] | + + + | Home Phone [...] [place] | | | | | [address] | | + + + + + Care Team Providers + +------+ + | Care Sole Inker Name | Role | Phone | + [...] + + | 08/22/ | Hospital | [facility] | Adelita Lu MD | 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 | | | | [address] | [place], [place] | lung, unspecified | | | | [place], | [address] | laterality (HCC); | | | | [place] [address] | [phone] | Pulmonary nodules | | | | [phone] | | | +--------+ + + + [...] | | | | | [place] [address] | | | | | | [phone] | | | | | | | | +--------+ + + + + | 06/08/ | Office | Physical Medicine | Rocky Santos, | | | 2019 | Visit | and Rehabilitation | MD Vare[address] | | | | | | [place] | | | | | | [address] | | | | | | | | +--------+ + + + + | 06/16/ | Appointment | Pulmonology | Eveline Jaffe | | 2019 | | | MD Nichole Carter [address] | | | | | | [address] [place] | | | | | | [place] [address] | | | | | | [phone] | | | | | | | | +--------+ + + + + | 06/16/ | Office | Pulmonology | Eveline Jaffe | | | 2019 | Visit | | MD Nichole Carter [address] | | | | | | [address] [place] | | | | | | [place] [address] | | | | | | [phone] | | | | | | | | +--------+ + + + + | 08/24/ | Office | Cardiology | Anisha Lopez DO | | 2019 | Visit | | [address] | | | | | | [place] | | | | | | [address] | | | | | | | [...] [address] | [place] | [phone] | | [facility] | | [address] | | | - LABORATORY | | [...] | 0.80 | 0.60 - 1.30 | [facility] | | | | | mg/dL | [facility] | | | | | | MEDICAL | | | | | | CENTER - | | | | | | LABORATORY | | + + + + + + | eGFR if not | >60Comment: GLOMERULAR | >=60 | [facility] | | | | FILTRATION | mL/min/1.73m2 | [facility] | | | EMIRATI | RATE,ESTIMATED | | MEDICAL | | | | mL/min/1.37v7Ankn than | | CENTER - | | [...] ST. | [address] | [place] | [phone] | | [facility] | | [address] | | | - LABORATORY | | [...]
--- OUTSIDE RECORDS SUMMARY | ~2019-05-05 | XMS | Encounter Summary ---
Demographics + + + | Address | [address] | | | [place] [address] | + + + | Home Phone [...] [place] | | | | | [address] | | + + + + + Care Team Providers + +------+ + | Care C D Stripper Name | Role | Phone | [...] + + | 11/20/ | Refill | [facility] | Vivian, | Medication Refill | | 2014 | | MED CTR MEDICAL | Lokesh Gramajo MD [address] | | | | | ONCOLOGY CLINIC [address] | [facility] | | | | | W [facility] | [place] [address] | | | | | [place] [address] | [phone] | | | | | [phone] | | | +--------+--------+ + + + [...] | | | | | [place] [address] | | | | | | [phone] | | | | | | | | +--------+ + + + + | 06/08/ | Office | Physical Medicine | Rocky Santos, | | | 2019 | Visit | and Rehabilitation | [address] | | | | | | [place] | | | | | | [address] | | | | | | | | +--------+ + + + + | 06/16/ | Appointment | Pulmonology | Eveline Jaffe | | 2019 | | | MD Nichole Carter [address] | | | | | | [address] [place] | | | | | | [place] [address] | | | | | | [phone] | | | | | | | | +--------+ + + + + | 06/16/ | Office | Pulmonology | Eveline Jaffe | | | 2019 | Visit | | MD Nichole Carter | | | | | | [address] [place] | | | | | | [place] [address] | | | | | | [phone] | | | | | | | | +--------+ + + + + | 08/24/ | Office | Cardiology | Anisha Lopez DO | | 2019 | Visit | | [address] | | | | | | [place] | | | | | | [address] | | | | | | | | +--------+ + + + + documented as of this encounter Visit Diagnoses + + | Diagnosis | + + | Gastroesophageal reflux disease without esophagitis - Primary Esophageal reflux | + + documented in this encounter"
--- OUTSIDE RECORDS SUMMARY | ~2019-05-05 | XMS | Encounter Summary ---
Demographics + + + | Address | [address] | | | [place] [address] | + + + | Home Phone [...] [place] | | | | | [address] | | + + + + + Care Team Providers + +------+ + | Care Tower Watchman Name | Role | Phone | + +------+ + | Davis Ivan MD | PCP | | + +------+ + Encounter Details +--------+ + + + + | Date | Type | Department | Care Team | Description | +--------+ + + + + | 09/14/ | Hospital | [facility] | Adelita Lu MD | Squamous cell | | 2013 | Encounter | MED CTR MEDICAL | [address] | carcinoma lung, | | | | ONCOLOGY CLINIC [address] | [place] | right (HCC) (Primary | | | | [address] | [address] | Dx); Acute | | | | [place] [address] | [phone] | sinusitis | | | | [phone] | | | +--------+ + + + [...] states that she is having surgery in [place] with Dr. Mace on 09/16/13. REVIEW OF [...] of bruis es. Pain: 8-9/10 joint aching. Adeliat Dias MD - 09/14/2013 9:25 AM PDT Hem-Onc Progress Note [facility] Patient name:Thea Carmona : 1945 Age: 68 y.o. CSN: [id number] Date of Service: 09/14/2013 Identifying Statement: Thea Carmona is a 68 y.o. female from [facility] with clinical stage II non-small cell [...] thoracic surgeon at [facility] for consideration of broncho scopy, right [...] 7 days sent to pharmacy. Thoracic surgery [facility] records reviewed. Results the brain MRI discussed with her which did show presence of mastoiditis Total time face to face discussion with the patient and family was 25 minutes, more than 50 % of the time was spent counseling and coordination of care. Adelita Lu MD Portions of this chart may have been created with [employer] voice recognition software. Occasi onal wrong-word or [...] CENTER | | | | | | [place] [address] | | | | | | [phone] | | | | | | | | +--------+ + + + + | 06/08/ | Office | Physical Medicine | Rocky Santos, | | | 2019 | Visit | and Rehabilitation | MD Nichole Hinds [address] | | | | | | [place] | | | | | | [address] | | | | | | | | +--------+ + + + + | 06/16/ | Appointment | Pulmonology | Eveline Jaffe | | 2019 | | | MD Nichole Carter [address] | | | | | | [address] [place] | | | | | | [place] [address] | | | | | | [phone] | | | | | | | | +--------+ + + + + | 06/16/ | Office | Pulmonology | Eveline Jaffe | | | 2019 | Visit | | MD Nichole Carter [address] | | | | | | [address] [place] | | | | | | [place] [address] | | | | | | [phone] | | | | | | | | +--------+ + + + + | 08/24/ | Office | Cardiology | Anisha Lopez DO | | | 2019 | Visit | | [address] | | | | | | [place] | | | | | | [address] | | | | | | | | +--------+ + + + + documented as of this encounter Visit Diagnoses + + | Diagnosis | + + | Squamous cell carcinoma lung, right (HCC) - Primary | + + | Acute sinusitis Acute sinusitis, unspecified | + + documented in this encounter
--- OUTSIDE RECORDS SUMMARY | ~2019-05-05 | XMS | Encounter Summary ---
Demographics + + + | Address | [address] | | | [place] [address] | + + + | Home Phone [...] [place] | | | | | [address] | | + + + + + Care Team Providers + +------+ + | Care Automotive Technology Instructor Name | Role | Phone | + +------+ + | Davis Ivan MD | PCP | | + +------+ + Encounter Details +--------+ + + + + | Date | Type | Department | Care Team | Description | +--------+ + + + + | 12/21/ | Orders Only | [facility] | Provider, | Rheumatoid arthritis | | 2019 | | SYSTEM GENERIC OP | MD [address] | with rheumatoid | | | | CONVERSION [address] | [place] [address] | factor ([facility]); | | | | [address] [place], [place] | [place] [address] | Rheumatoid arthritis | | | | [address] | | ([facility]) | | | | [phone] | | | +--------+ + + + [...] | | | | | [place] [address] | | | | | | [phone] | | | | | | | | +--------+ + + + + | 06/08/ | Office | Physical Medicine | Rocky Santos, | | | 2019 | Visit | and Rehabilitation | [address] | | | | | | [place] | | | | | | [address] | | | | | | | | +--------+ + + + + | 06/16/ | Appointment | Pulmonology | Eveline Jaffe | | | 2019 | | | MD Nichole Carter [address] | | | | | | [address] [place] | | | | | | [place], [place] [address] | | | | | | [phone] | | | | | | | | +--------+ + + + + | 06/16/ | Office | Pulmonology | Eveline Jaffe | | | 2019 | Visit | | MD Nichole Crater [address] | | | | | | [address] [place] | | | | | | [place] [address] | | | | | | [phone] | | | | | | | | +--------+ + + + + | 08/24/ | Office | Cardiology | Anisha Lopez DO | | | 2019 | Visit | | [address] | | | | | | [place] | | | | | | [address] | | | | | | | [...] | Differential | | e | arthritis ([facility]) | starting 01/14/2019 | | | | | | until 10/29/2019, 1 | | | | | | completed | + +------+--------+ + + | Comprehensive | Lab | Routin | Rheumatoid | 3 Occurrences | | Metabolic Panel | | e | arthritis ([facility]) | starting 01/14/2019 | | | | | | until 10/29/2019, 1 | | | | | | completed | + +------+--------+ + + | Sedimentation Rate | Lab | Routin | Rheumatoid | 3 Occurrences | | | | e | arthritis ([facility]) | starting 01/14/2019 | | | | | | until 10/29/2019, 1 | | | | | | completed | + +------+--------+ + + | C-Reactive Protein | Lab | Routin | Rheumatoid | 3 Occurrences | | | | e | arthritis ([facility]) | starting 01/14/2019 | | | | [...] REFERENCE | | | | performed at [facility];[address] | | LAB | | | | [place] | | [facility] | | | | [address];[place] [address] | | LABORATORY | | + + + + + + + + | Specimen | + + | Blood | + + + + + + + | Performing | Address | City/State/Zipcode | Phone Number | | Organization | | | | + + + + + | REFERENCE LAB | [address] | [place] [address] | [phone] | | [facility] | Bl[address] | | | | LABORATORY | | | | + + + + + | REFERENCE LAB | [address] | [place] [address] | | | [facility] | [address] | [...] REFERENCE | | | | performed at [facility];[address] | | LAB | | | | [place] | | [facility] | | | | [address];[place] [address] | | LABORATORY | | + + + + + + + + | Specimen | + + | Blood | + + + + + + + | Performing | Address | City/State/Zipcode | Phone Number | | Organization | | | | + + + + + | REFERENCE LAB | [address] [place] [address] | [place] [address] | [phone] | | [facility] | Blvd[address] | | | | LABORATORY | | | | + + + + + | REFERENCE LAB | [address] [place] [address] | [place] [address] | | | [facility] | Blvd[address] | [...] | | | | | | MDRD IDOK traceable | | | | | | equation.Testing | | | | | | performed at [facility];[address] | | | | | | [facility] | | | | | | [facility];[place] [address] | | | | | | | | | | + + + + + + + + | Specimen | + + | Blood | + + + + + + + | Performing | Address | City/State/Zipcode | Phone Number | | Organization | | | | + + + + + | REFERENCE LAB | [address] [place] [address] | [place] [address] | [phone] | | [facility] | Blvd[address] | | | | LABORATORY | | | | + + + + + | REFERENCE LAB | [address] [place] [address] | [place] [address] | | | [facility] | Blvd[address] | [...] LAB | | | | performed at [facility];[address] | | [facility] | | | | [place] | | LABORATORY | | | | [address]vd;[place] [address] | | | | | | | | | | + + + + + + + + | Specimen | + + | Blood | + + + + + + + | Performing | Address | City/State/Zipcode | Phone Number | | Organization | | | | + + + + + | REFERENCE LAB | [address] [place] [address] | [place] [address] | [phone] | | [facility] | Blvd[address] | | | | LABORATORY | | | | + + + + + | REFERENCE LAB | [address] [place] [address] | [place] [address] | | | [facility] | Blvd. | | | | LABORATORY | | | | + + + + + documented in this encounter Visit Diagnoses + + | Diagnosis | + + | Rheumatoid arthritis with rheumatoid factor (HCC) Rheumatoid arthritis | + + | Rheumatoid arthritis (HCC) | + + documented in this encounter"
--- OUTSIDE RECORDS SUMMARY | ~2019-05-05 | XMS | Encounter Summary ---
Demographics + + + | Address | [address] | | | [place] [address] | + + + | Home Phone [...] [place] | | | | | [address] | | + + + + + Care Team Providers + +------+ + | Care Sports Marketing Coordinator Name | Role | Phone | [...] [address] | | | | | [phone] | [place] [address] | | +--------+ + + + + [...] | | | | | [place] [address] | | | | | | [phone] | | | | | | | | +--------+ + + + + | 06/08/ | Office | Physical Medicine | Rocky Santos, | | | 2019 | Visit | and Rehabilitation | MD [address] | | | | | | [place] | | | | | | [address] | | | | | | | | +--------+ + + + + | 06/16/ | Appointment | Pulmonology | Eveline Jaffe | | 2019 | | | MD Nichole [address] | | | | | | [address] [address] | | | | | | [place] [address] | | | | | | [phone] | | | | | | | | +--------+ + + + + | 06/16/ | Office | Pulmonology | Eveline Jaffe | | | 2019 | Visit | | MD Raul [address] | | | | | | [address] [address] | | | | | | [place] [address] | | | | | | [phone] | | | | | | | | +--------+ + + + + | 08/24/ | Office | Cardiology | Anisha Lopez DO | | | 2019 | Visit | | [address] | | | | | | [place] | | | | | | [address] | | | | | | | [...]
--- OUTSIDE RECORDS SUMMARY | ~2019-05-05 | XMS | Encounter Summary ---
Demographics + + + | Address | [address] | | | [place] [address] | + + + | Home Phone [...] [place] | | | | | [address] | | + + + + + Care Team Providers + +------+ + | Care Manager Meeting Name | Role | Phone | + [...] + + | 08/22/ | Hospital | [facility] | Adelita Lu MD | Recurrent squamous | | 2015 | Encounter | [facility] | [address] | cell carcinoma of | | | | ON[facility]OGY CL[facility] [address] | [place] | lung, unspecified | | | | [place] | [address] | laterality (HCC) | | | | [place] [address] | [phone] | (Primary Dx) | | | | [phone] | | | +--------+ + + + [...] 08/22/2014 10:19 AM PDT Hem-Onc Progress Note [facility] Patient name:Thea Carmona : 1945 Age: 69 y.o. CSN: [id number] Date of Service: 08/22/2014 Identifying Statement: Thea Carmona is a 69 y.o. female from [facility] with clinical stage II, non-small [...] lewis 2.CT-guided biopsy by interventional radiology at [facility] of the right lung massshows squamous cell [...] [facility]) on prednisone and methotrexate[facility] Hyperlipidemia on simvastatin Hypertension on [...] mg by mouth Daily. RESPIRATORY THERAPY SUPPLIES [facility] Res[facility] S9 auto CPAP 5-9 cm H2O. Heater and Humidifier . All necessary supplies. AHI 11.6. Diagnosis Code(s)327.23, also has co morbid hypertension , history of stroke. Length of Need 99 months. Please send order to [facility]. RESPIRATORY THERAPY SUPPLIES [facility] Respironics autotitrating CPAP at 5-9 cm H2O [...] this chart may have been created with Apperian voice recognition software. Occasi onal wrong-word or [...] | | | | | [place] [address] | | | | | | [phone] | | | | | | | | +--------+ + + + + | 06/08/ | Office | Physical Medicine | Rocky Santos, | | | 2019 | Visit | and Rehabilitation | MD [address] | | | | | | [place] | | | | | | [address] | | | | | | | | +--------+ + + + + | 06/16/ | Appointment | Pulmonology | Eveline Jaffe | | 2019 | | | MD [address] | | | | | | [address] [address] | | | | | | [place] [address] | | | | | | [phone] | | | | | | | | +--------+ + + + + | 06/16/ | Office | Pulmonology | Ld Eveline | | | 2019 | Visit | | MD [address] | | | | | | [address] | | | | | | [place] [address] | | | | | | [phone] | | | | | | | | +--------+ + + + + | 08/24/ | Office | Cardiology | Anisha Lopez DO | | | 2019 | Visit | | [address] | | | | | | [place] | | | | | | [address] | | | | | | | | +--------+ + + + + documented as of this encounter Visit Diagnoses + + | Diagnosis | + + | Recurrent squamous cell carcinoma of lung, unspecified laterality (HCC) - Primary | + + documented in this encounter
--- OUTSIDE RECORDS SUMMARY | ~2019-05-05 | XMS | Encounter Summary ---
Demographics + + + | Address | [address] | | | [place] [address] | + + + | Home Phone [...] [place] | | | | | [address] | | + + + + + Care Team Providers + +------+ + | Care Acquisitions Assistant Name | Role | Phone | [...] | | | | | [address] | [address] [place], [place] | | | | | [place], [place] | [address] | | | | | [address] | | | | | | [phone] | | | +--------+ + + + [...] +----+---+ + + | | 1 | [place] | | | | 6 | 43-degrees | | | | 3 | | | | | 1 | | | +----+---+ + + | | 1 | [place] off | | | | 6 | [...] | 2018 | Visit | | [address] | | | | | | [facility] | | | | | | [place] [address] | | | | | | [phone] | | | | | | | | +--------+ + + + + | 06/08/ | Office | Physical Medicine | Rocky Santos, | | | 2019 | Visit | and Rehabilitation | MD [address]la [address] | | | | | | [place] | | | | | | [address] | | | | | | | | +--------+ + + + + | 06/16/ | Appointment | Pulmonology | Eveline Jaffe | | | 2019 | | | MD [address] | | | | | | [address] [place] | | | | | | [place] [address] | | | | | | [phone] | | | | | | | | +--------+ + + + + | 06/16/ | Office | Pulmonology | Eveline Jaffe | | | 2019 | Visit | | MD Nichole Carter [address] | | | | | | [address] [place] | | | | | | [place] [address] | | | | | | [phone] | | | | | | | | +--------+ + + + + | 08/24/ | Office | Cardiology | Anisha Lopez DO | | | 2019 | Visit | | [address] | | | | | | [place] | | | | | | [address] | | | | | | | [...]
--- OUTSIDE RECORDS SUMMARY | ~2019-05-05 | XMS | Encounter Summary ---
Demographics + + + | Address | [address] | | | [place] [address] | + + + | Home Phone [...] [place] | | | | | [address] | | + + + + + Care Team Providers + +------+ + | Care Community Service Technician Name | Role | Phone [...] | | | Tr[place] | | [place] [address] | | | | | finger, left | | Phone: | | | | | index | | [phone] | | | | | finger | | Fax: | | | | | Trigger | | [phone] | | | | | finger, left [...] + + | 12/14/ | Surgery | [facility] | Giuliano Padilla, | Left Thumb Trigger | | 2019 | | MED CTR OR INTRA OP | MD [address] [place] [address] ST | Finger Release, Left | | | | [address] | [place], [place] | Index Trigger | | | | [place], [place] | [address] | Finger Release, Left | | | | [address] | | Long Trigger Finger | | | | [phone] | | Release, Left Ring | | [...] | 2018 | Visit | | [address] | | | | | | [facility] | | | | | | [place] [address] | | | | | | [phone] | | | | | | | | +--------+ + + + + | 06/08/ | Office | Physical Medicine | Rocky Santos, | | | 2019 | Visit | and Rehabilitation | MD [address] | | | | | | [place] | | | | | | [address] | | | | | | | | +--------+ + + + + | 06/16/ | Appointment | Pulmonology | Eveline Jaffe | | 2019 | | | MD Nichole Carter | | | | | | [address] | | | | | | [place] [address] | | | | | | [phone] | | | | | | | | +--------+ + + + + | 06/16/ | Office | Pulmonology | Eveline Jaffe | | 2019 | Visit | | MD Nichole [address] | | | | | | [address] [address] | | | | | | [place] [address] | | | | | | [phone] | | | | | | | | +--------+ + + + + | 08/24/ | Office | Cardiology | Anisha Lopez DO | | | 2019 | Visit | | [address] | | | | | | [place] | | | | | | [address] | | | | | | | [...] [address] | [place] | [phone] | | [facility] | | [address] | | | - LABORATORY | | [...] [address] | [place] | [phone] | | [facility] | | [address] | | | - LABORATORY | | [...]
--- OUTSIDE RECORDS SUMMARY | ~2019-05-05 | XMS | Encounter Summary ---
Demographics + + + | Address | [address] | | | [place] [address] | + + + | Home Phone [...] [place] | | | | | [address] | | + + + + + Care Team Providers + +------+ + | Care Applique Cutter Name | Role | Phone | [...] + + | 03/08/ | [facility] [place] | Off[place], | COPD (chronic | | 2014 | Visit | PULMONARY [address] | Ayana Looney MD | obstructive | | | | [place], | | pulmonary disease) | | | | [place] [address] | | (Primary Dx); | | | | [phone] | | Gastroesophageal | | | | [...] CENTER) on prednisone and methotrexate, Dr. Lewis Sadler Hyperlipidemia on simvastatin Hypertension on clonidine and [...] biopsy, [facility] Dr. 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 3. Recurrent squamous cell carcinoma of lung, [...] made to ensure accuracy; however, inadvertent computerized qa tester errors may be pre sent. documented in this encounter Plan of Treatment +--------+ + + + + | Date | Type | Specialty | Care Team | Description | +--------+ + + + + | 05/30/ | Office | Rheumatology | Santosh Sumner, | | | 2019 | Visit | | [address] | | | | | | [facility] | | | | | | [place] [address] | | | | | | [phone] | | | | | | | | +--------+ + + + + | 06/08/ | Office | Physical Medicine | Rocky Santos, | | | 2019 | Visit | and Rehabilitation | MD Nichole [address] | | | | | | [place] | | | | | | [address] | | | | | | | | +--------+ + + + + | 06/16/ | Appointment | Pulmonology | Eveline Jaffe | | | 2019 | | | MD [address] | | | | | | [address] [place] | | | | | | [place] [address] | | | | | | [phone] | | | | | | | | +--------+ + + + + | 06/16/ | Office | Pulmonology | Eveline Jaffe | | | 2019 | Visit | | MD Nichole Carter [address] | | | | | | [address] [place] | | | | | | [place] [address] | | | | | | [phone] | | | | | | | | +--------+ + + + + | 08/24/ | Office | Cardiology | Anisha Lopez | | | 2019 | Visit | | [address] | | | | | | [place] | | | | | | [address] | | | | | | | [...]
--- OUTSIDE RECORDS SUMMARY | ~2019-05-05 | XMS | Encounter Summary ---
Demographics + + + | Address | [address] | | | [place] [address] | + + + | Home Phone [...] [place] | | | | | [address] | | + + + + + Care Team Providers + +------+ + | Care Life Enrichment Manager Name | Role | Phone | [...] + + | 07/02/ | Telephone | [facility] | Vivian, | Other | | 2015 | | MED CTR MED[facility] | Lokesh Gramajo MD [address] | | | | | ON[facility]OGY CLINIC [address] | [facility] | | | | | [address] | [place] [address] | | | | | [place] [address] | [phone] | | | | | [phone] | | | +--------+ + + + [...] | | | | | [place] [address] | | | | | | [phone] | | | | | | | | +--------+ + + + + | 06/08/ | Office | Physical Medicine | Rocky Santos, | | | 2019 | Visit | and Rehabilitation | [address] | | | | | | [place] | | | | | | [address] | | | | | | | | +--------+ + + + + | 06/16/ | Appointment | Pulmonology | Eveline Jaffe | | | 2019 | | | MD Nichole Carter | | | | | | [address] [place] | | | | | | [place] [address] | | | | | | [phone] | | | | | | | | +--------+ + + + + | 06/16/ | Office | Pulmonology | Eveline Jaffe | | | 2019 | Visit | | MD Nichole Carter | | | | | | [address] [place] | | | | | | [place], [place] [address] | | | | | | [phone] | | | | | | | | +--------+ + + + + | 08/24/ | Office | Cardiology | Anisha Lopez DO | | | 2019 | Visit | | [address] | | | | | | [place] | | | | | | [address] | | | | | | | | +--------+ + + + + documented as of this encounter Visit Diagnoses Not on filedocumented in this encounter"
--- OUTSIDE RECORDS SUMMARY | ~2019-05-05 | XMS | Encounter Summary ---
Demographics + + + | Address | [address] | | | [place] [address] | + + + | Home Phone [...] [place] | | | | | [address] | | + + + + + Care Team Providers + +------+ + | Care Day Habilitation Specialist Name | Role | Phone | [...] Arthroplasty | | | | [address] | [place], [place] | | | | | [place], [place] | [address] | | | | | [address] | | | | | | [phone] | | | +--------+---------+ + + + [...] | | | | | [place] [address] | | | | | | [phone] | | | | | | | | +--------+ + + + + | 06/08/ | Office | Physical Medicine | Rocky Santos, | | | 2019 | Visit | and Rehabilitation | [address] | | | | | | [place] | | | | | | [address] | | | | | | | | +--------+ + + + + | 06/16/ | Appointment | Pulmonology | Eveline Jaffe | | | 2019 | | | MD Nichole Carter [address] | | | | | | [address] [place] | | | | | | [place] [address] | | | | | | [phone] | | | | | | | | +--------+ + + + + | 06/16/ | Office | Pulmonology | Eveline Jaffe | | | 2019 | Visit | | MD Nichole Carter [address] | | | | | | [address] [place] | | | | | | [place] [address] | | | | | | [phone] | | | | | | | | +--------+ + + + + | 08/24/ | Office | Cardiology | Anisha Lopez DO | | | 2019 | Visit | | [address] | | | | | | [place] | | | | | | [address] | | | | | | | | +--------+ + + + + documented as of this encounter Procedures + +--------+ + + + | Procedure Name | Priori | Date/Time | Associated Diagnosis | Comments | | | ty | | | | + +--------+ + + + | FL DVAID STATS NO | Routin | 10/27/2017 | [...]
--- OUTSIDE RECORDS SUMMARY | ~2019-05-05 | XMS | Encounter Summary ---
Demographics + + + | Address | [address] | | | [place] [address] | + + + | Home Phone [...] [place] | | | | | [address] | | + + + + + Care Team Providers + +------+ + | Care Siebel Crm Developer Name | Role | Phone | [...] + + | 08/28/ | Hospital | [facility] | Adelita Lu MD | Recurrent squamous | | 2015 | Encounter | MED CTR MED[facility] | [address] | cell carcinoma of | | | | ONCOLOGY CLINIC [address] | [place] | lung, right (HCC) | | | | [address] [place] | [address] | (Primary Dx) | | | | [place] [address] | [phone] | | | | | [phone] | | | +--------+ + + + [...] 08/28/2014 9:44 AM PDT Hem-Onc Progress Note [facility] Patient name:Thea Carmona : 1945 Age: 69 y.o. CSN: [id number] Date of Service: 08/28/2014 Identifying Statement: Thea Carmona is a 69 y.o. female from [facility] with clinical stage II, non-small [...] 2.CT-guided biopsy by interventional radiology at [facility] of the right lung massshows squamous [...] by Dr. Mace , thoracic surgeon at [facility] for consideration of broncho scopy, right [...] Diagnosis Date COPD (chronic obstructive pulmonary disease) ([facility]) on albuterol Spondylolisthesis of cervical region Spinal stenosis has tried cortisone injections Osteoporosis Depression Pneumonia 2009 hospitalized 5 days Rheumatoid arthritis(714.0) ([facility]) [facility] Hyperlipidemia on simvastatin Hypertension on clonidine and lisinopril Hypothyroidism GERD (gastroesophageal reflux disease) Stroke ([facility]) 2006 Stroke (HCC) 2007 Squamous cell carcinoma of lung ([facility]) 07/2013 right lower lobe Sputum culture positive for Scopulariopsis species Recurrent squamous cell carcinoma of lung ([facility]) 07/11/[address] and RUL [...] mg by mouth Daily. RESPIRATORY THERAPY SUPPLIES [facility] ResMed S9 auto CPAP 5-9 cm H2O. Heater and Humidifier . All necessary supplies. AHI 11.6. Diagnosis Code(s)327.23, also has co morbid hypertension , history of stroke. Length of Need 99 months. Please send order to [facility]. RESPIRATORY THERAPY SUPPLIES [facility] Respironics autotitrating CPAP at 5-9 cm H2O [...] 0.00-0.10 K/uL Imaging: PET/CT scan June 2014: [facility]: Necrotic right lung lesion wit h [...] this chart may have been created with Two Tap voice recognition software. Occasi onal wrong-word or [...] | | | | | [place] [address] | | | | | | [phone] | | | | | | | | +--------+ + + + + | 06/08/ | Office | Physical Medicine | Rocky Santos, | | | 2019 | Visit | and Rehabilitation | MD [address] | | | | | | [place] | | | | | | [address] | | | | | | | | +--------+ + + + + | 06/16/ | Appointment | Pulmonology | Eveline Jaffe | | 2019 | | | MD [address] | | | | | | [address] | | | | | | [place] [address] | | | | | | [phone] | | | | | | | | +--------+ + + + + | 06/16/ | Office | Pulmonology | Eveline Jaffe | | | 2019 | Visit | | MD Raul [address] | | | | | | [address] | | | | | | [place] [address] | | | | | | [phone] | | | | | | | | +--------+ + + + + | 08/24/ | Office | Cardiology | Anisha Lopez DO | | | 2019 | Visit | | [address] | | | | | | [place] | | | | | | [address] | | | | | | | | +--------+ + + + + documented as of this encounter Visit Diagnoses + + | Diagnosis | + + | Recurrent squamous cell carcinoma of lung, right (HCC) - Primary | + + documented in this encounter
--- OUTSIDE RECORDS SUMMARY | ~2019-05-05 | XMS | Encounter Summary ---
Demographics + + + | Address | [address] | | | [place] [address] | + + + | Home Phone [...] [place] | | | | | [address] | | + + + + + Care Team Providers + +------+ + | Care News Camera Operator Name | Role | Phone | + +------+ + | Davis Ivan MD | PCP | | + +------+ + Encounter Details +--------+ + + + + | Date | Type | Department | Care Team | Description | +--------+ + + + + | 02/01/ | Hospital | [facility] IP | Conversion | Pain | | 2014 | Encounter | CONVERSION DEP [address] | Transaction, | | | | | [address] | Provider Unknown | | | | | [place] | [phone] | | | | | [address] | | | | | | [phone] | | | +--------+ + + + [...] | | | | | [place] [address] | | | | | | [phone] | | | | | | | | +--------+ + + + + | 06/08/ | Office | Physical Medicine | Rocky Santos, | | | 2019 | Visit | and Rehabilitation | MD Nichole [address]is | | | | | | [place] | | | | | | [address] | | | | | | | | +--------+ + + + + | 06/16/ | Appointment | Pulmonology | Eveline Jaffe | | 2019 | | | MD [address]ole [address] | | | | | | [address] | | | | | | [place] [address] | | | | | | [phone] | | | | | | | | +--------+ + + + + | 06/16/ | Office | Pulmonology | Eveline Jaffe | | | 2019 | Visit | | MD Raul [address] | | | | | | [address] [place] | | | | | | [place] [address] | | | | | | [phone] | | | | | | | | +--------+ + + + + | 08/24/ | Office | Cardiology | Anisha Lopez DO | | | 2019 | Visit | | [address] | | | | | | [place] | | | | | | [address] | | | | | | | [...]
--- OUTSIDE RECORDS SUMMARY | ~2019-05-05 | XMS | Encounter Summary ---
Demographics + + + | Address | [address] | | | [place] [address] | + + + | Home Phone [...] [place] | | | | | [address] | | + + + + + Care Team Providers + +------+ + | Care Net Software Architect Name | Role | Phone | [...] Looney MD | | | | | [place], | | | | | | [place] [address] | | | | | | [phone] | | | +--------+ + + + [...] W | | | | | | [facility] | | | | | | [place] [address] | | | | | | [phone] | | | | | | | | +--------+ + + + + | 06/08/ | Office | Physical Medicine | Rocky Santos, | | | 2019 | Visit | and Rehabilitation | MD [address] | | | | | | [place] | | | | | | [id number] | | | | | | | | +--------+ + + + + | 06/16/ | Appointment | Pulmonology | Eveline Jaffe | | | 2019 | | | MD Nichole [address] | | | | | | [address] [place] | | | | | | [place] [address] | | | | | | [phone] | | | | | | | | +--------+ + + + + | 06/16/ | Office | Pulmonology | Eveline Jaffe | | | 2019 | Visit | | MD Nichole Carter | | | | | | [address] [place] | | | | | | [place] [address] | | | | | | [phone] | | | | | | | | +--------+ + + + + | 08/24/ | Office | Cardiology | Anisha Lopez DO | | 2019 | Visit | | [address] | | | | | | [place] | | | | | | [address] | | | | | | | | +--------+ + + + + documented as of this encounter Visit Diagnoses Not on filedocumented in this encounter"
--- OUTSIDE RECORDS SUMMARY | ~2019-05-05 | XMS | Encounter Summary ---
Demographics + + + | Address | [address] | | | [place] [address] | + + + | Home Phone [...] [place] | | | | | [address] | | + + + + + Care Team Providers + +------+ + | Care Cabinet Abrasive Sandblaster Name | Role | Phone | + [...] | | | | | | [place] [address] | | | | | | [phone] | | | +--------+ + + + [...] | | | | | [place] [address] | | | | | | [phone] | | | | | | | | +--------+ + + + + | 06/08/ | Office | Physical Medicine | Rocky Santos, | | | 2019 | Visit | and Rehabilitation | [address] | | | | | | [place] | | | | | | [address] | | | | | | | | +--------+ + + + + | 06/16/ | Appointment | Pulmonology | Eveline Jaffe | | | 2019 | | | MD Nichole [address] | | | | | | [address] [place] | | | | | | [place] [address] | | | | | | [phone] | | | | | | | | +--------+ + + + + | 06/16/ | Office | Pulmonology | Eveline Jaffe | | | 2019 | Visit | | MD Nichole Carter | | | | | | [address] [place] | | | | | | [place] [address] | | | | | | [phone] | | | | | | | | +--------+ + + + + | 08/24/ | Office | Cardiology | Anisha Lopez DO | | | 2019 | Visit | | [address] | | | | | | [place] | | | | | | [address] | | | | | | | | +--------+ + + + + documented as of this encounter Visit Diagnoses + + | Diagnosis | + + | Chronic obstructive pulmonary disease, unspecified COPD type (HCC) - Primary | + + documented in this encounter"
--- OUTSIDE RECORDS SUMMARY | ~2019-05-05 | XMS | Encounter Summary ---
Demographics + + + | Address | [address] | | | [place] [address] | + + + | Home Phone [...] [place] | | | | | [address] | | + + + + + Care Team Providers + +------+ + | Care Assessment Consultant Name | Role | Phone | [...] + + | 11/09/ | Office | [facility] | Giuliano Padilla, | Postop check | | 2018 | Visit | ORTHOPEDIC SURGERY | [address] | (Primary Dx) | | | | [address] [facility] | [place] | | | | | [place] | [address] | | | | | [address] | | | | | | [phone] | | | +--------+---------+ + + + [...] | 2018 | Visit | | [address] | | | | | | [facility] | | | | | | [place] [address] | | | | | | [phone] | | | | | | | | +--------+ + + + + | 06/08/ | Office | Physical Medicine | Rocky Santos, | | | 2019 | Visit | and Rehabilitation | MD [address] | | | | | | [place] | | | | | | [address] | | | | | | | | +--------+ + + + + | 06/16/ | Appointment | Pulmonology | Eveline Jaffe | | | 2019 | | | MD Nichole [address] | | | | | | [address] [place] | | | | | | [place] [address] | | | | | | [phone] | | | | | | | | +--------+ + + + + | 06/16/ | Office | Pulmonology | Eveline Jaffe | | | 2019 | Visit | | MD [address] | | | | | | [address] [place] | | | | | | [place] [address] | | | | | | [phone] | | | | | | | | +--------+ + + + + | 08/24/ | Office | Cardiology | Anisha Lopez DO | | | 2019 | Visit | | [address] | | | | | | [place], [place] | | | | | | [address] | | | | | | | | +--------+ + + + + documented as of this encounter Visit Diagnoses + + | Diagnosis | + + | Postop check - Primary Follow-up examination, following unspecified surgery | + + documented in this encounter"
--- OUTSIDE RECORDS SUMMARY | ~2019-05-05 | XMS | Encounter Summary ---
Demographics + + + | Address | [address] | | | [place] [address] | + + + | Home Phone [...] [place] | | | | | [address] | | + + + + + Care Team Providers + +------+ + | Care Treasury Management Sales Consultant Name | Role | Phone [...] + + | 09/01/ | Hospital | [facility] | [place] | Acute infective | | 2018 - | Encounter | [facility] | MD German [address] | exacerbation of | | | | [address] [place] | [address] [place] | chronic obstructive | | 09/04/ | | [place] [address] | [place] [address] | airway disease | | 2019 | | [phone] | [phone] | (HCC); | | | | | [...] , Hypothyroidism and GERd, recent admission at [facility] for COPD exacerbation/Hypoxia, treated with nebs and [...] lower lobe (appear denser than CXR at [facility] . Pt also had CT abdomen/pelvis at [facility] for rectal sheath hematoma which showed [...] aorta and coronary arteries. The implanted left undergraduate internship al jugular port catheter again terminates in [...] answered and education giving. They verbalized understanding. RATE CLERK PASSENGER wheel delgado ient out to the car. Bunny Rojas, PharmD - 09/04/2018 6:58 AM PDT WARFARIN PER PHARMACY PROTOCOL: Subjective/Objective: Thea Carmona is a 73 y.o. female admitted on 09/01/18 for HAP and is receiving warfa rin pt a for h.o PE. 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 [...] am: INR 4. 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 5. Pharmacist to follow daily Warfarin Dosing Nomogram Per P&T-approved Electronically signed by: Bunny Cruz PharmD 09/04/2018 7:27 Teri Craig MD - 09/03/2018 1:37 PM PDT HOSPITALIST PROGRESS NOTE Patient: Thea Carmona : 1945: Age: 73 y.o. MedRec: [id number] PCP: Caitlin Chino MD Admission date: 09/01/2018 [...] H ypothyroidism and GERd, recent admission at [facility] for COPD exacerbation/Hypoxia, sathya ated with nebs [...] lower lobe (appear denser than CXR at [facility]. 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 [...] am: INR 4. 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 5. Pharmacist to follow daily Warfarin Dosing [...] and was admitted for August 17 to [facility] at [facility] in [place]. We've requested those notes and they were [...] I learned from the patient and her chain saw operator Mirza and the discharge summary from July [...] he was admitted August 17, 2018 to [facility] in [place]. Antimicrobials - Current Antibiotic Dates of Therapy vanco 4/3 zosyn 4/3 bactrim 4/3 Antimicrobials - Discontinued Antibiotic Dates of Therapy Historical Vancomycin dosing (previous & current encounter): vanco 1g q24h Micro/Cultures/Diagnostics: Microbiology Results (Last 14 Days by Collected Date with Culture/Sensitivity) Procedure Component Value Units Date/Time Culture, MRSA [[id number]] Collected: 09/01/182045 Order Status: Sent Lab Status: In process Updated: 09/01/182045 Specimen: Tissue from Nares Culture, Blood [[id number]] (Normal) Collected: 09/01/181926 Order Status: Completed Lab Status: Preliminary result Updated: 09/02/18 0741 Specimen: Blood Culture No growth: Monitored continually by instrument for 5 days Culture, Blood [[id number]] (Normal) Collected: 09/01/181926 Order Status: Completed Lab Status: Preliminary result Updated: 09/02/18 0741 Specimen: Blood Culture No growth: Monitored continually by instrument for 5 days Respiratory pathogen panel, NAAT [[id number]] Order Status: Sent Lab Status: No result Specimen: Tissue from Nasopharynx Pneumocystis Jiroveci Ag, Immunofluorescent [[id number]] Collected: 09/01/18 160 Order Status: Sent Lab Status: In process Updated: 09/01/18 160 Specimen: Body Fluid from Sputum, Expectorated Culture, Respiratory, Lower, Smear [[id number]] Collected: 09/01/18 1555 Order Status: Completed Lab [...] Carmona : 1945: Age: 73 y.o. MedRec: [id number] PCP: Caitlin Chino MD Admission date: 09/01/2018 [...] H ypothyroidism and GERd, recent admission at [facility] for COPD exacerbation/Hypoxia, sathya ated with nebs [...] lower lobe (appear denser than CXR at [facility]. Pt also had CT abdomen/pelvis at [facility] for rectal sheath hematoma which showed [...] itis; COPD (chronic obstructive pulmonary disease) ([facility]); Depression; HONG (dyspnea on exerti on); Full dentures; GERD (gastroesophageal reflux disease); Hyperlipidemia; Hypertension; Hy pothyroidism; Obesity; MARCE (obstructive sleep apnea); Osteoporosis; Pneumonia (2008); Recurr ent squamous cell carcinoma of lung ([facility]) (07/11/2014); Rheumatoid arthritis(714.0); Spinal s tenosis; Spondylolisthesis of cervical region; Sputum culture positive for Scopulariopsis sp ecies; Squamous cell carcinoma of lung ([facility]) (07/2013); Stroke ([facility]) (2006); Stroke ([facility]) (18 01); and Upper GI bleed (06/2014). [...] and was admitted for August 17 to [facility] 24 at [facility] in [place]. We've requested those notes and they were [...] I learned from the patient and her chain saw operator Mirza and the discharge summary from July [...] he was admitted August 17, 2018 to [facility] in [place]. Antimicrobials - Current Antibiotic Dates of Therapy vanco 4/3 zosyn 4/3 bactrim 4/3 Antimicrobials - Discontinued Antibiotic Dates of Therapy Historical Vancomycin dosing (previous & current encounter): vanco 1g q24h Micro/Cultures/Diagnostics: Microbiology Results (Last 14 Days by Collected Date with Culture/Sensitivity) Procedure Component Value Units Date/Time Culture, MRSA [[id number]] Collected: 09/01/182045 Order Status: Sent Lab Status: In process Updated: 09/01/182045 Specimen: Tissue from Nares Culture, Blood [[id number]] (Normal) Collected: 09/01/181926 Order Status: Completed Lab Status: Preliminary result Updated: 09/02/18740 Specimen: Blood Culture No growth: Monitored continually by instrument for 5 days Culture, Blood [[id number]] (Normal) Collected: 09/01/181926 Order Status: Completed Lab Status: Preliminary result Updated: 09/02/18740 Specimen: Blood Culture No growth: Monitored continually by instrument for 5 days Respiratory pathogen panel, NAAT [[id number]] Order Status: Sent Lab Status: No result Specimen: Tissue from Nasopharynx Pneumocystis Jiroveci Ag, Immunofluorescent [[id number]] Collected: 09/01/18 160 Order Status: Sent Lab Status: In process Updated: 09/01/181607 Specimen: Body Fluid from Sputum, Expectorated Culture, Respiratory, Lower, Smear [[id number]] Collected: 09/01/18 1554 Order Status: Sent Lab Status: In process Updated: 09/01/18 1609 Specimen: Body Fluid from Sputum, Expectorated Relevant [...] Arthritis; COPD (chronic obstructive pulmonary disease) ([facility]); Depression; HONG (dyspnea on exertion); Full dentures; GERD (gastroesophageal reflux disease); Hyperlipidemia; Hypertension; Hypothyroidism; Obesi ty; MARCE (obstructive sleep apnea); Osteoporosis; Pneumonia (2008); Recurrent squamous cell c arcinoma of lung ([facility]) (07/11/2014); Rheumatoid arthritis(714.0); Spinal stenosis; Spondyloli sthesis of cervical region; Sputum culture positive for Scopulariopsis species; Squamous marilou l carcinoma of lung ([facility]) (07/2013); Stroke ([facility]) (2006); Stroke ([facility]) (2007); and Upper GI b leed (06/2014). [...] Arthritis; COPD (chronic obstructive pulmonary disease) ([facility]); Depression; HONG (dyspnea on exertion); Full dentures; GERD (gastroesophageal reflux disease); Hyperlipidemia; Hypertension; Hypothyroidism; Obesi ty; MARCE (obstructive sleep apnea); Osteoporosis; Pneumonia (2008); Recurrent squamous cell c arcinoma of lung ([facility]) (07/11/2014); Rheumatoid arthritis(714.0); Spinal stenosis; Spondyloli sthesis of cervical region; Sputum culture positive for Scopulariopsis species; Squamous marilou l carcinoma of lung ([facility]) (07/2013); Stroke ([facility]) (2006); Stroke ([facility]) (2007); and Upper GI b leed (06/2014). [...] itis; COPD (chronic obstructive pulmonary disease) ([facility]); Depression; HONG (dyspnea on exerti on); Full dentures; GERD (gastroesophageal reflux disease); Hyperlipidemia; Hypertension; Hy pothyroidism; Obesity; MARCE (obstructive sleep apnea); Osteoporosis; Pneumonia (2008); Recurr ent squamous cell carcinoma of lung ([facility]) (07/11/2014); Rheumatoid arthritis(714.0); Spinal s tenosis; Spondylolisthesis [...] for August 17 to arch 24 at [facility] in [place]. We've requested those notes and they were [...] I learned from the patient and her chain saw operator Mirza and the discharge summary from July [...] he was admitted August 17, 2018 to [facility] in [place]. Antimicrobials - Current Antibiotic Dates of Therapy vanco 4/3 zosyn 4/3 bactrim 4/3 Antimicrobials - Discontinued Antibiotic Dates of Therapy Historical Vancomycin dosing (previous & current encounter): vanco 1g q24h Micro/Cultures/Diagnostics: Microbiology Results (Last 14 Days by Collected Date with Culture/Sensitivity) Procedure Component Value Units Date/Time Culture, MRSA [[id number]] Collected: 09/01/182045 Order Status: Sent Lab Status: In process Updated: 09/01/182045 Specimen: Tissue from Nares Culture, Blood [[id number]] Collected: 09/01/181926 Order Status: Sent Lab Status: In process Updated: 09/01/181931 Specimen: Blood Culture, Blood [[id number]] Collected: 09/01/181926 Order Status: Sent Lab Status: In process Updated: 09/01/181931 Specimen: Blood Respiratory pathogen panel, NAAT [[id number]] Order Status: Sent Lab Status: No result Specimen: Tissue from Nasopharynx Pneumocystis Jiroveci Ag, Immunofluorescent [[id number]] Collected: 09/01/181607 Order Status: Sent Lab Status: In process Updated: 09/01/18 160 Specimen: Body Fluid from Sputum, Expectorated Culture, Respiratory, Lower, Smear [[id number]] Collected: 09/01/18 1555 Order Status: Sent Lab [...] | 2018 | Visit | | [address] | | | | | | [address] | | | | | | [place] [address] | | | | | | [phone] | | | | | | | | +--------+ + + + + | 06/08/ | Office | Physical Medicine | Rocky Santos, | | | 2019 | Visit | and Rehabilitation | MD Nichole Mario | | | | | | [place] | | | | | | [address] | | | | | | | | +--------+ + + + + | 06/16/ | Appointment | Pulmonology | Eveline Jaffe | | 2019 | | | MD Nichloe Carter | | | | | | [place] | | | | | | [place] [address] | | | | | | [phone] | | | | | | | | +--------+ + + + + | 06/16/ | Office | Pulmonology | Eveline Jaffe | | 2019 | Visit | | MD Nichole Carter | | | | | | [place] | | | | | | [place] [address] | | | | | | [phone] | | | | | | | | +--------+ + + + + | 08/24/ | Office | Cardiology | Anisha Lopez DO | | | 2019 | Visit | | [address] | | | | | | [place] | | | | | | [address] | | | | | | | [...] + +--------+ + + + | 1,3 SJVM-Y-AKBZMY | Routin | 09/01/2018 | | Results [...] [address] | [place] | [phone] | | [facility] | | [address] | | | - LABORATORY | | [...] mL/min/1.73m2 | [facility] | | | [place] | | | MEDICAL | | | [...] [address] | [place] | [phone] | | [facility] | | [address] | | | - LABORATORY | | [...] + | [facility] | [address] | [place] | [phone] | | [facility] | | [address] | | | - LABORATORY | | [...] [address] | [place] | [phone] | | [facility] | | [address] | | | - LABORATORY | | [...] + | [facility] | [address] | [place] | [phone] | | [facility] | | [address] | | | - LABORATORY | | [...] [address] | [place] | [phone] | | [facility] | | [address] | | | - LABORATORY | | [...] [address] | [place] | [phone] | | [facility] | | [address] | | | - LABORATORY | | [...] mL/min/1.73m2 | [facility] | | | [place] | | | MEDICAL | | | [...] + | [facility] | [address] | [place] | [phone] | | [facility] | | [address] | | | - LABORATORY | | [...] [address] | [place] | [phone] | | [facility] | | [address] | | | - LABORATORY | | [...] [address] | [place] | [phone] | | [facility] | | [address] | | | - LABORATORY | | | | + + + + + 1,3 Rwnl-D-Qrutqx (09/01/2018 7:28 PM PDT) + + + [...] levels | | | | | | of(1-3)-Sova-K-Tkwgur. | | | | | | The [...] produces | | | | | | little(1-3)-Xqxb-Y-Suuvc | | | | | | n [...] + | Performed at: 01 - [facility] [address], | REFERENCE LAB | | [place] [id number] Door Manager: Keyana Henderson PhD, | [facility] | | Phone: [phone] | | + + + + + + + + | Performing | Address | City/State/Zipcode | Phone Number | | Organization | | | | + + + + + | REFERENCE LAB | [address] | [place] [address] | [phone] | | [facility] | Drive [...] [address] | [place] | [phone] | | [facility] | | [address] | | | - LABORATORY | | [...] [address] | [place] | [phone] | | [facility] | | [address] | | | - LABORATORY | | [...] | | | | | mmol/L | [facility] | | | | | | MEDICAL | | | | | | CENTER - | | | | | | LABORATORY | | + +---------+ + + + | K | 3.0 (L) | 3.4 - 5.1 | [facility] | | | | | mmol/L | [facility] | | | | | [...] | mL/min/1.73m2 | [facility] | | | [place] | | | MEDICAL | | | [...] [address] | [place] | [phone] | | [facility] | | [address] | | | - LABORATORY | | [...] + | [facility] | [address] | [place] | [phone] | | [facility] | | [address] | | | - LABORATORY | | [...] [address] | [place] | [phone] | | [facility] | | [address] | | | - LABORATORY | | [...] [address] | [place] | [phone] | | [facility] | | [address] | | | - LABORATORY | | [...] | | | | | dose on [facility] 09/01/18 at 2100 | | | [...] | | | | | | on [facility] 09/02/18 at 0000 | | | [...] | | | | First dose on [facility] 09/02/18 at 0300, | | | [...] | | | | 90 Minutes, ONCE, [facility] 09/02/18 at | | | | | [...]
--- OUTSIDE RECORDS SUMMARY | ~2019-05-05 | XMS | Encounter Summary ---
Demographics + + + | Address | [address] | | | [place] [address] | + + + | Home Phone [...] [place] | | | | | [address] | | + + + + + Care Team Providers + +------+ + | Care Ceramics Machine Operator Name | Role | Phone [...] | | | | | | [place] [address] | | | | | | [phone] | | | +--------+ + + + [...] | | | | | [place] [address] | | | | | | [phone] | | | | | | | | +--------+ + + + + | 06/08/ | Office | Physical Medicine | Rocky Santos, | | | 2019 | Visit | and Rehabilitation | MD Varela [address] | | | | | | [place] | | | | | | [address] | | | | | | | | +--------+ + + + + | 06/16/ | Appointment | Pulmonology | Eveline Jaffe | | 2019 | | | MD Nichole [address] | | | | | | [place] | | | | | | [place] [address] | | | | | | [phone] | | | | | | | | +--------+ + + + + | 06/16/ | Office | Pulmonology | Eveline Jaffe | | 2019 | Visit | | MD Raul [address] | | | | | | [place] | | | | | | [place] [address] | | | | | | [phone] | | | | | | | [...]
--- OUTSIDE RECORDS SUMMARY | ~2019-05-05 | XMS | Encounter Summary ---
Demographics + + + | Address | [address] | | | [place] [address] | + + + | Home Phone [...] [place] | | | | | [address] | | + + + + + Care Team Providers + +------+ + | Care Senior Application Programmer Name | Role | Phone | [...] | | | hand, | | [place] [address] | | | | | unspecified | | Phone: | | | | | osteoarthrit | | [phone] | | | | | is type | | Fax: | | | | | Osteoarthrit | | [phone] | | | | | is of [...] | | | | | | | [place] REPAIR | | | | | | | INTERCARP/CA | | | | | | | RP-METACARP | | | | | | | JT | | | +--------+--------+ + + + + Encounter Details +--------+ + + + + | Date | Type | Department | Care Team | Description | +--------+ + + + + | 03/20/ | Hospital | [facility] | Giuliano Padilla, | | | 2014 | Encounter | MED CTR OR INTRA OP | [address] [facility] | | | | | [address] | [place] | | | | | [place] | [address] | | | | | [address] | | | | | | [phone] | | | +--------+ + + + [...] | | | | | [place] [address] | | | | | | [phone] | | | | | | | | +--------+ + + + + | 06/08/ | Office | Physical Medicine | Rocky Santos, | | | 2019 | Visit | and Rehabilitation | MD Nichole Landis | | | | | | [place] | | | | | | [address] | | | | | | | | +--------+ + + + + | 06/16/ | Appointment | Pulmonology | Eveline Jaffe | | 2019 | | | MD Nichole [address] | | | | | | [address] | | | | | | [place] [address] | | | | | | [phone] | | | | | | | | +--------+ + + + + | 06/16/ | Office | Pulmonology | Eveline Jaffe | | | 2019 | Visit | | MD Raul [address] | | | | | | [place] | | | | | | [place] [address] | | | | | | [phone] | | | | | | | | +--------+ + + + + | 08/24/ | Office | Cardiology | Anisha Lopez DO | | | 2019 | Visit | | [address] | | | | | | [place] | | | | | | [address] | | | | | | | [...]
--- OUTSIDE RECORDS SUMMARY | ~2019-05-05 | XMS | Encounter Summary ---
Demographics + + + | Address | [address] | | | [place] [address] | + + + | Home Phone [...] [place] | | | | | [address] | | + + + + + Care Team Providers + +------+ + | Care Color Printer Operator Name | Role | Phone | [...] + + | 07/28/ | Hospital | [facility] | Chalino Chiu | Recurrent lung | | 2015 | Encounter | MED CTR XRAY [address] | MD Brittanie, FACS [address] | squamous cell | | | | [place] | [address] [place] | carcinoma, | | | | [place] [address] | [place] [address] | unspecified | | | | [phone] | [phone] | laterality (HCC) | | | | [...] | | | | | [place] [address] | | | | | | [phone] | | | | | | | | +--------+ + + + + | 06/08/ | Office | Physical Medicine | Rocky Santos, | | | 2019 | Visit | and Rehabilitation | [address] | | | | | | [place] | | | | | | [address] | | | | | | | | +--------+ + + + + | 06/16/ | Appointment | Pulmonology | Eveline Jaffe | | | 2019 | | | MD Nichole [address] | | | | | | [address] [place] | | | | | | [place] [address] | | | | | | [phone] | | | | | | | | +--------+ + + + + | 06/16/ | Office | Pulmonology | Eveline Jaffe | | | 2019 | Visit | | MD Nichole [address] | | | | | | [address] [place] | | | | | | [place] [address] | | | | | | [phone] | | | | | | | | +--------+ + + + + | 08/24/ | Office | Cardiology | Anisha Lopez DO | | | 2019 | Visit | | [address] | | | | | | [place] | | | | | | [address] | | | | | | | [...] Chart Review. | [facility] | | | [facility] | | | [facility] | | | - IMAGING | + + + + + + + + | Performing | Address | City/State/Zipcode | Phone Number | | Organization | | | | + + + + + | [facility] | [address] | [place] | [phone] | | [facility] | | [address] | | | - IMAGING | | | | + + + + + documented in this encounter Visit Diagnoses + + | Diagnosis | + + | Recurrent lung squamous cell carcinoma, unspecified laterality (HCC) | + + documented in this encounter"
--- OUTSIDE RECORDS SUMMARY | ~2019-05-05 | XMS | Encounter Summary ---
Demographics + + + | Address | [address] | | | [place] [address] | + + + | Home Phone [...] [place] | | | | | [address] | | + + + + + Care Team Providers + +------+ + | Care Caddie Supervisor Name | Role | Phone | [...] | | 2019 | | [address] | Television Actor | ([facility]) | | | | [place] | | | | | | [address] | | | | | | [phone] | | | +--------+ + + + [...] | | | | | [place] [address] | | | | | | [phone] | | | | | | | | +--------+ + + + + | 06/08/ | Office | Physical Medicine | Rocky Santos, | | | 2019 | Visit | and Rehabilitation | MD Nichole Landis | | | | | | [place] | | | | | | [address] | | | | | | | | +--------+ + + + + | 06/16/ | Appointment | Pulmonology | Eveline Jaffe | | 2019 | | | MD Nichole Carter | | | | | | [address] [place] | | | | | | [place] [address] | | | | | | [phone] | | | | | | | | +--------+ + + + + | 06/16/ | Office | Pulmonology | Eveline Jaffe | | | 2019 | Visit | | MD Raul [address] | | | | | | [address] [place] | | | | | | [place] [address] | | | | | | [phone] | | | | | | | | +--------+ + + + + | 08/24/ | Office | Cardiology | Anisha Lopez DO | | | 2019 | Visit | | [address] | | | | | | [place] | | | | | | [address] | | | | | | | [...] LAB | | | | performed at [facility];[address] | | [facility] | | | | [place] | | LABORATORY | | | | [address];[place], [place] [address] | | | | | | | | | | + + + + + + + + | Specimen | + + | Blood | + + + + + + + | Performing | Address | City/State/Zipcode | Phone Number | | Organization | | | | + + + + + | REFERENCE LAB | [address] [place] [address] | [place] [address] | [phone] | | [facility] | Blvd[address] | | | | LABORATORY | | | | + + + + + | REFERENCE LAB | [address] [place] [address] | [place] [address] | | | [facility] | Blvd. | [...] | | | | | performed at [facility];[address] | | | | | | [facility] | | | | | | Blvd;[place] [address] | | | | | | | | | | + + + + + + + + | Specimen | + + | Blood | + + + + + + + | Performing | Address | City/State/Zipcode | Phone Number | | Organization | | | | + + + + + | REFERENCE LAB | [address] | [place] [address] | [phone] | | [facility] | Blvd[address] | | | | LABORATORY | | | | + + + + + | REFERENCE LAB | [address] | [place] [address] | | | [facility] | Bl[address] | [...] REFERENCE | | | | performed at [facility];[address] | | LAB | | | | [place] | | [facility] | | | | Blvd;[place] [address] | | LABORATORY | | + + + + + + + + | Specimen | + + | Blood | + + + + + + + | Performing | Address | City/State/Zipcode | Phone Number | | Organization | | | | + + + + + | REFERENCE LAB | [address] | [place] [address] | [phone] | | [facility] | Blvd[address] | | | | LABORATORY | | | | + + + + + | REFERENCE LAB | [address] | [place] [address] | | | [facility] | Blvd. | [...] REFERENCE | | | | performed at [facility];[address] | | LAB | | | | [place] | | [facility] | | | | Blvd;[place] [address] | | LABORATORY | | + + + + + + + + | Specimen | + + | Blood | + + + + + + + | Performing | Address | City/State/Zipcode | Phone Number | | Organization | | | | + + + + + | REFERENCE LAB | [address] [place] [address] | [place] [address] | [phone] | | [facility] | Blvd. | | | | LABORATORY | | | | + + + + + | REFERENCE LAB | [address] [place] [address] | [place] [address] | | | [facility] | Blvd. | | | | LABORATORY | | | | + + + + + documented in this encounter Visit Diagnoses + + | Diagnosis | + + | Rheumatoid arthritis (HCC) | + + documented in this encounter"
--- OUTSIDE RECORDS SUMMARY | ~2019-05-05 | XMS | Encounter Summary ---
Demographics + + + | Address | [address] | | | [place] [address] | + + + | Home Phone [...] [place] | | | | | [address] | | + + + + + Care Team Providers + +------+ + | Care It Administrator Name | Role | Phone | [...] | | | | | | [place] [address] | | | | | | [phone] | | | +--------+--------+ + + + [...] | | | | | [place] [address] | | | | | | [phone] | | | | | | | | +--------+ + + + + | 06/08/ | Office | Physical Medicine | Rocky Santos, | | | 2019 | Visit | and Rehabilitation | [address] | | | | | | [place] | | | | | | [address] | | | | | | | | +--------+ + + + + | 06/16/ | Appointment | Pulmonology | Eveline Jaffe | | | 2019 | | | MD Nichole Carter [address] | | | | | | [address] [place] | | | | | | [place] [address] | | | | | | [phone] | | | | | | | | +--------+ + + + + | 06/16/ | Office | Pulmonology | Eveline Jaffe | | | 2019 | Visit | | MD Nichole Carter | | | | | | [address] [place] | | | | | | [place] [address] | | | | | | [phone] | | | | | | | | +--------+ + + + + | 08/24/ | Office | Cardiology | Anisha Lopez DO | | | 2019 | Visit | | [address] | | | | | | [place] | | | | | | [address] | | | | | | | | +--------+ + + + + documented as of this encounter Visit Diagnoses Not on filedocumented in this encounter"
--- OUTSIDE RECORDS SUMMARY | ~2019-05-05 | XMS | Encounter Summary ---
Demographics + + + | Address | [address] | | | [place] [address] | + + + | Home Phone [...] [facility] [place] | | | and [place] | + [...] [place] | | | | | [address] | | + + + + + Care Team Providers + +------+ + | Care Sales Associate Cashier Name | Role | Phone | + [...] | | | | | | [place] [address] | | | | | | [phone] | | | +--------+ + + + [...] | | | | | [place] [address] | | | | | | [phone] | | | | | | | | +--------+ + + + + | 06/08/ | Office | Physical Medicine | Rocky Santos, | | | 2019 | Visit | and Rehabilitation | MD Nichole Landis | | | | | | [place] | | | | | | [address] | | | | | | | | +--------+ + + + + | 06/16/ | Appointment | Pulmonology | Eveline Jaffe | | 2019 | | | MD Nichole [address] | | | | | | [address] | | | | | | [place] [address] | | | | | | [phone] | | | | | | | | +--------+ + + + + | 06/16/ | Office | Pulmonology | Eveline Jaffe | | | 2019 | Visit | | MD Raul [address] | | | | | | [address] | | | | | | [place] [address] | | | | | | [phone] | | | | | | | | +--------+ + + + + | 08/24/ | Office | Cardiology | Anisha Lopez DO | | | 2019 | Visit | | [address] | | | | | | [place] | | | | | | [address] | | | | | | | | +--------+ + + + + documented as of this encounter Visit Diagnoses Not on filedocumented in this encounter"
--- OUTSIDE RECORDS SUMMARY | ~2019-05-05 | XMS | Encounter Summary ---
Demographics + + + | Address | [address] | | | [place] [address] | + + + | Home Phone [...] [place] | | | | | [address] | | + + + + + Care Team Providers + +------+ + | Care Elephant Tamer Name | Role | Phone | + [...] MD | symptoms) | | | | [place], | | | | | | [place] [address] | | | | | | [phone] | | | +--------+ + + + [...] | | | | | [facility] | | | | | | [place] [address] | | | | | | [phone] | | | | | | | | +--------+ + + + + | 06/08/ | Office | Physical Medicine | Rocky Santos, | | | 2019 | Visit | and Rehabilitation | MD Nichole Landis | | | | | | [place] | | | | | | [address] | | | | | | | | +--------+ + + + + | 06/16/ | Appointment | Pulmonology | Eveline Jaffe | | 2019 | | | MD Nichole Carter | | | | | | [address] | | | | | | [place] [address] | | | | | | [phone] | | | | | | | | +--------+ + + + + | 06/16/ | Office | Pulmonology | Eveline Jaffe | | | 2019 | Visit | | MD Raul [address] | | | | | | [address] | | | | | | [place] [address] | | | | | | [phone] | | | | | | | | +--------+ + + + + | 08/24/ | Office | Cardiology | Anisha Lopez DO | | | 2019 | Visit | | [address] | | | | | | [place] | | | | | | [address] | | | | | | | | +--------+ + + + + documented as of this encounter Visit Diagnoses Not on filedocumented in this encounter"
--- OUTSIDE RECORDS SUMMARY | ~2019-05-05 | XMS | Encounter Summary ---
Demographics + + + | Address | [address] | | | [place] [address] | + + + | Home Phone [...] [place] | | | | | [address] | | + + + + + Care Team Providers + +------+ + | Care Pallet Stone Positioner Name | Role | Phone | + [...] + + | 09/06/ | Office | [facility] | Offenstein, | COPD with acute | | 2016 | Visit | PULMONARY [address] | Ayana Looney MD | exacerbation (HCC); | | | | [place], | | Essential | | | | [place] [address] | | hypertension; | | | | [phone] | | Recurrent squamous | | | [...] HOSPITAL) on prednisone and methotrexate, Dr. 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 60 tablet 3 Respiratory Therapy Supplies [facility] ResMed S9 auto CPAP 5-9 cm H2O. [...] nodes normal Data: PET/CT scan done in [place] was reviewed and interpreted in clinic today. [...] to ensure accuracy; however, inadvertent computerized head of operation and logistics errors may be pre sent. documented in [...] | | | | | [place] [address] | | | | | | [phone] | | | | | | | | +--------+ + + + + | 06/08/ | Office | Physical Medicine | Rocky Santos, | | | 2019 | Visit | and Rehabilitation | MD Nichole Landis | | | | | | [place] | | | | | | [address] | | | | | | | | +--------+ + + + + | 06/16/ | Appointment | Pulmonology | Eveline Jaffe | | 2019 | | | MD Nichole Carter [address] | | | | | | [address] | | | | | | [place] [address] | | | | | | [phone] | | | | | | | | +--------+ + + + + | 06/16/ | Office | Pulmonology | Eveline Jaffe | | | 2019 | Visit | | MD Raul [address] | | | | | | [address] | | | | | | [place] [address] | | | | | | [phone] | | | | | | | | +--------+ + + + + | 08/24/ | Office | Cardiology | Anisha Lopez DO | | | 2019 | Visit | | [address] | | | | | | [place] | | | | | | [address] | | | | | | | [...]
--- OUTSIDE RECORDS SUMMARY | ~2019-05-05 | XMS | Encounter Summary ---
Demographics + + + | Address | [address] | | | [place] [address] | + + + | Home Phone [...] [place] | | | | | [address] | | + + + + + Care Team Providers + +------+ + | Care Caddie Name | Role | Phone | + [...] + + | 05/05/ | Refill | [facility] | Vivian, | Medication Refill | | 2015 | | [facility] | Lokesh Gramajo MD [address] | | | | | ON[facility]OGY CLINIC [address] | [facility] | | | | | [facility] | [place] [address] | | | | | [place] [address] | [phone] | | | | | [phone] | | | +--------+--------+ + + + [...] | | | | | [place] [address] | | | | | | [phone] | | | | | | | | +--------+ + + + + | 06/08/ | Office | Physical Medicine | Rocky Santos, | | | 2019 | Visit | and Rehabilitation | [address] | | | | | | [place] | | | | | | [address] | | | | | | | | +--------+ + + + + | 06/16/ | Appointment | Pulmonology | Eveline Jaffe | | | 2019 | | | MD Nichole Carter [address] | | | | | | [address] [place] | | | | | | [place] [address] | | | | | | [phone] | | | | | | | | +--------+ + + + + | 06/16/ | Office | Pulmonology | Eveline Jaffe | | | 2019 | Visit | | MD Nichole Carter [address] | | | | | | [address] [place] | | | | | | [place] [address] | | | | | | [phone] | | | | | | | | +--------+ + + + + | 08/24/ | Office | Cardiology | Anisha Lopez DO | | | 2019 | Visit | | [address] | | | | | | [place] | | | | | | [address] | | | | | | | | +--------+ + + + + documented as of this encounter Visit Diagnoses + + | Diagnosis | + + | Gastroesophageal reflux disease without esophagitis - Primary Esophageal reflux | + + documented in this encounter"
--- OUTSIDE RECORDS SUMMARY | ~2019-05-05 | XMS | Encounter Summary ---
Demographics + + + | Address | [address] | | | [place] [address] | + + + | Home Phone [...] [place] | | | | | [address] | | + + + + + Care Team Providers + +------+ + | Care Human Services Professional Name | Role | Phone [...] + | 08/03/ | Refill | [facility] | Adelita Lu MD | Other | | 2014 | | [facility] | [address] [facility] | | | | | ONCOLOGY CLINIC [address] | [place] | | | | | [facility] | [address] | | | | | [place] [address] | [phone] | | | | | [phone] | | | +--------+--------+ + + + [...] | | | | | [place] [address] | | | | | | [phone] | | | | | | | | +--------+ + + + + | 06/08/ | Office | Physical Medicine | Rocky Santos, | | | 2019 | Visit | and Rehabilitation | [address] | | | | | | [place] | | | | | | [address] | | | | | | | | +--------+ + + + + | 06/16/ | Appointment | Pulmonology | Eveline Jaffe | | | 2019 | | | MD Nichole Carter [address] | | | | | | [address] [place] | | | | | | [place] [address] | | | | | | [phone] | | | | | | | | +--------+ + + + + | 06/16/ | Office | Pulmonology | Eveline Jaffe | | | 2019 | Visit | | MD Nichole Carter [address] | | | | | | [address] [place] | | | | | | [place] [address] | | | | | | [phone] | | | | | | | | +--------+ + + + + | 08/24/ | Office | Cardiology | Anisha Lopez DO | | | 2019 | Visit | | [address] | | | | | | [place] | | | | | | [address] | | | | | | | | +--------+ + + + + documented as of this encounter Visit Diagnoses + + | Diagnosis | + + | Infection - Primary Unspecified infectious and parasitic diseases | + + documented in this encounter"
--- OUTSIDE RECORDS SUMMARY | ~2019-05-05 | XMS | Encounter Summary ---
Demographics + + + | Address | [address] | | | [place] [address] | + + + | Home Phone [...] [place] | | | | | [address] | | + + + + + Care Team Providers + +------+ + | Care Blankmaker Name | Role | Phone | + [...] + | 09/06/ | Hospital | [facility] | Adelita Lu MD | Recurrent squamous | | 2015 | Encounter | [facility] | [address] | cell carcinoma of | | | | ONCOLOGY CLINIC [address] | [place] | lung, unspecified | | | | [place] | [address] | laterality (HCC) | | | | [place] [address] | [phone] | (Primary Dx) | | | | [phone] | | | +--------+ + + + [...] 09/06/2014 9:35 AM PDT Hem-Onc Progress Note [facility] Patient name:Thea Carmona : 1945 Age: 69 y.o. CSN: [id number] Date of Service: 09/06/2014 Identifying Statement: Thea Carmona is a 69 y.o. female from [facility] with clinical stage II, non-small cell lung [...] biopsy by interventional radiology at [facility] of the right lung massshows [...] HOSPITAL) on prednisone and methotrexate, Dr. Lewis, [place] Hyperlipidemia on simvastatin Hypertension on clonidine and lisinopril Hypothyroidism GERD (gastroesophageal reflux disease) Stroke ([facility]) 2006 Stroke ([facility]) 2007 Squamous cell carcinoma of lung ([facility]) 07/2013 right lower lobe Sputum [...] RESPIRATORY THERAPY [facility] ResMed S9 auto CPAP 5-9 cm H2O. Heater and Humidifier . All necessary supplies. AHI 11.6. Diagnosis Code(s)327.23, also has co morbid hypertension , history of stroke. Length of Need 99 months. Please send order to [facility]. RESPIRATORY THERAPY SUPPLIES [employer] Respironics autotitrating CPAP at 5-9 cm H2O [...] this chart may have been created with Yulex voice recognition software. Occasi onal wrong-word or [...] | 2018 | Visit | | [address] | | | | | | [facility] | | | | | | [place] [address] | | | | | | [phone] | | | | | | | | +--------+ + + + + | 06/08/ | Office | Physical Medicine | Rocky Santos, | | | 2019 | Visit | and Rehabilitation | MD Nichole [address] | | | | | | [place] | | | | | | [address] | | | | | | | | +--------+ + + + + | 06/16/ | Appointment | Pulmonology | Eveline Jaffe | | | 2019 | | | MD Nichole Carter [address] | | | | | | [address] [place] | | | | | | [place] [address] | | | | | | [phone] | | | | | | | | +--------+ + + + + | 06/16/ | Office | Pulmonology | Eveline Jaffe | | | 2019 | Visit | | MD Nichole Carter | | | | | | [address] [place] | | | | | | [place] [address] | | | | | | [phone] | | | | | | | | +--------+ + + + + | 08/24/ | Office | Cardiology | Anisha Lopez DO | | | 2019 | Visit | | [address] | | | | | | [place] | | | | | | [address] | | | | | | | | +--------+ + + + + documented as of this encounter Visit Diagnoses + + | Diagnosis | + + | Recurrent squamous cell carcinoma of lung, unspecified laterality (HCC) - Primary | + + documented in this encounter
--- OUTSIDE RECORDS SUMMARY | ~2019-05-05 | XMS | Encounter Summary ---
Demographics + + + | Address | [address] | | | [place] [address] | + + + | Home Phone [...] [place] | | | | | [address] | | + + + + + Care Team Providers + +------+ + | Care Tufter Name | Role | Phone | + [...] | | | [place] | | [place] [address] | | | | | finger, left | | Phone: | | | | | index | | [phone] | | | | | finger | | Fax: | | | | | [place] | | [phone] | | | | | finger, left [...] finger; | | | | [address] | [place], [place] | Trigger finger, left | | | | [place], [place] | [address] | middle finger; | | | | [address] | | Tr[place] finger of | | | | [phone] | | left thumb; [place] | | [...] | | | | | [place] [address] | | | | | | [phone] | | | | | | | | +--------+ + + + + | 06/08/ | Office | Physical Medicine | Rocky Santos, | | | 2019 | Visit | and Rehabilitation | MD [address] | | | | | | [place] | | | | | | [address] | | | | | | | | +--------+ + + + + | 06/16/ | Appointment | Pulmonology | Eveline Jaffe | | 2019 | | | MD Nichole [address] | | | | | | [address] | | | | | | [place] [address] | | | | | | [phone] | | | | | | | | +--------+ + + + + | 06/16/ | Office | Pulmonology | Eveline Jaffe | | 2019 | Visit | | MD Raul [address] | | | | | | [address] | | | | | | [place] [address] | | | | | | [phone] | | | | | | | | +--------+ + + + + | 08/24/ | Office | Cardiology | Anisha Lopez DO | | | 2019 | Visit | | [address] | | | | | | [place] | | | | | | [address] | | | | | | | [...] [address] | [place] | [phone] | | [facility] | | [address] | | | - LABORATORY | | [...] | | [employer] T[employer] | | | [facility] | | | | | [...] [address] | [place] | [phone] | | [facility] | | [address] | | | - LABORATORY | | [...]
--- OUTSIDE RECORDS SUMMARY | ~2019-05-05 | XMS | Encounter Summary ---
Demographics + + + | Address | [address] | | | [place] [address] | + + + | Home Phone [...] [place] | | | | | [address] | | + + + + + Care Team Providers + +------+ + | Care Social Worker School Name | Role | Phone | [...] + | 09/11/ | Hospital | [facility] | Adelita Lu MD | Recurrent squamous | | 2015 | Encounter | [facility] | [address] | cell carcinoma of | | | | ONCOLOGY CLINIC [address] | [place] | lung, unspecified | | | | [place] | [address] | laterality (HCC); | | | | [place] [address] | [phone] | Pulmonary nodules | | | | [phone] | | | +--------+ + + + [...] | 2018 | Visit | | [address] | | | | | | [facility] | | | | | | [place] [address] | | | | | | [phone] | | | | | | | | +--------+ + + + + | 06/08/ | Office | Physical Medicine | Rocky Santos, | | | 2019 | Visit | and Rehabilitation | MD Nichole [address] | | | | | | [place] | | | | | | [address] | | | | | | | | +--------+ + + + + | 06/16/ | Appointment | Pulmonology | Eveline Jaffe | | | 2019 | | | MD Nichole Carter | | | | | | [address] [place] | | | | | | [place] [address] | | | | | | [phone] | | | | | | | | +--------+ + + + + | 06/16/ | Office | Pulmonology | Eveline Jaffe | | | 2019 | Visit | | MD Nichole Carter | | | | | | [address] [place] | | | | | | [place] [address] | | | | | | [phone] | | | | | | | | +--------+ + + + + | 08/24/ | Office | Cardiology | Anisha Lopez DO | | | 2019 | Visit | | [address] | | | | | | [place], [place] | | | | | | [address] | | | | | | | [...]
--- OUTSIDE RECORDS SUMMARY | ~2019-05-05 | XMS | Encounter Summary ---
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 NO FILMS [...] | | | | | laterality, | [address] | [place] [address] | | | | | sequela | [place], | Phone: | | | | | | [place] [address] | [phone] | | | | | | | Fax: | | | | | | | [phone] | +--------+ + + + + + Encounter Details +--------+---------+ + + + | Date | Type | Department | Care Team | Description | +--------+---------+ + + + | 03/14/ | Office | [facility] | Offenstein, | Preop testing | | 2015 | Visit | ORTHOPEDIC SURGERY | Ayana Looney MD | (Primary Dx); Other | | | | [address] [facility] | Giuliano Padilla MD | secondary | | | | [place], [place] | [address] [facility] [address] | osteoarthritis of | | | | [address] | [place] [address] | first | | | | [phone] | [phone] | carpometacarpal | | | | | [...] J anuary 2011 for the diagnosis of aeum-lq-toaf first [facility] arthritis She also has rheumatoid [...] pops with use and it affects her web weaver She wishes to pursue surgical options Past Medical History Diagnosis Date COPD (chronic obstructive pulmonary disease) ([facility]) on albuterol Spondylolisthesis of cervical region Spinal stenosis has tried cortisone injections Osteoporosis Depression Pneumonia 2009 hospitalized 5 days Rheumatoid arthritis(714.0) ([facility]) [facility]lipidemia on simvastatin Hypertension on clonidine and lisinopril Hypothyroidism GERD (gastroesophageal reflux disease) Stroke ([facility]) 2007 Stroke ([facility]) 2008 Squamous cell carcinoma of lung ([facility]) 07/2013 right lower lobe Sputum culture positive for Scopulariopsis species Recurrent squamous cell carcinoma of lung ([facility]) 07/11/[address] and RUL [...] EBUS with right hilar LN biopsy, [facility] Dr. Sierra Tunneled venous port placement N/A 07/28/2014 Procedure: Port Placement; Surgeon: Chalino Chiu MD; Location: [facility] MAIN OR Colonoscopy 06/2014 Endoscopy No [...] daily. 60 tablet 3 Respiratory Therapy Supplies [facility] S9 auto CPAP 5-9 cm H2O. 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 It may have not [...] | 2018 | Visit | | [address] | | | | | | [facility] | | | | | | [place] [address] | | | | | | [phone] | | | | | | | | +--------+ + + + + | 06/08/ | Office | Physical Medicine | Rocky Santos, | | | 2019 | Visit | and Rehabilitation | MD Nichole Hinds [address] | | | | | | [place] | | | | | | [address] | | | | | | | | +--------+ + + + + | 06/16/ | Appointment | Pulmonology | Eveline Jaffe | | | 2019 | | | MD [address]ole [address] | | | | | | [address] [place] | | | | | | [place] [address] | | | | | | [phone] | | | | | | | | +--------+ + + + + | 06/16/ | Office | Pulmonology | Eveline Jaffe | | | 2019 | Visit | | MD Nichole [address] | | | | | | [address] [place] | | | | | | [place] [address] | | | | | | [phone] | | | | | | | | +--------+ + + + + | 08/24/ | Office | Cardiology | Anisha Lopez DO | | | 2019 | Visit | | [address] | | | | | | [place] | | | | | | [address] | | | | | | | [...] + | [address] | [address] | [place] | [phone] | | [facility] | | [address] | | | - LABORATORY | | [...] mL/min/1.73m2 | [facility] | | | LUXEMBOURGER | RATE,ESTIMATED | | MEDICAL | | | | mL/min/1.55m7Fkve than | | CENTER - | | [...] [address] | [place] | [phone] | | [facility] | | [address] | | | - LABORATORY | | | | + + + + + documented in this encounter Visit Diagnoses + + | Diagnosis | + + | Preop testing - Primary Preoperative examination, unspecified | + + | Other secondary osteoarthritis of first carpometacarpal joint of left hand | + + documented in this encounter
--- OUTSIDE RECORDS SUMMARY | ~2019-05-05 | XMS | Encounter Summary ---
Demographics + + + | Address | [address] | | | [place] [address] | + + + | Home Phone [...] [place] | | | | | [address] | | + + + + + Care Team Providers + +------+ + | Care Manager Net Name | Role | Phone | [...] | | | | shoulder | [place] [address] | [place] | | | | | | Phone: | [address] | | | | | | [phone] | Phone: | | | | | | Fax: | [phone] | | | | | | [phone] | Fax: | | | | | | | [phone] | + +--------+ + + + + Encounter Details +--------+---------+ + + + | Date | Type | Department | Care Team | Description | +--------+---------+ + + + | 12/27/ | Office | [facility] | Giuliano Padilla, | Postop check | | 2019 | Visit | ORTHOPEDIC SURGERY | [address] | (Primary Dx) | | | | [address] [facility] | [place] | | | | | [place] | [address] | | | | | [address] | | | | | | [phone] | | | +--------+---------+ + + + [...] | 2018 | Visit | | [address] | | | | | | [facility] | | | | | | [place] [address] | | | | | | [phone] | | | | | | | | +--------+ + + + + | 06/08/ | Office | Physical Medicine | Rocky Santos, | | | 2019 | Visit | and Rehabilitation | MD Varela [address] | | | | | | [place] | | | | | | [address] | | | | | | | | +--------+ + + + + | 06/16/ | Appointment | Pulmonology | Eveline Jaffe | | | 2019 | | | MD [address] | | | | | | [address] [place] | | | | | | [place] [address] | | | | | | [phone] | | | | | | | | +--------+ + + + + | 06/16/ | Office | Pulmonology | Eveline Jaffe | | | 2019 | Visit | | MD [address]ole [address] | | | | | | [address] [place] | | | | | | [place] [address] | | | | | | [phone] | | | | | | | | +--------+ + + + + | 08/24/ | Office | Cardiology | Anisha Lopez DO | | | 2019 | Visit | | [address] | | | | | | [place], [place] | | | | | | [address] | | | | | | | | +--------+ + + + + documented as of this encounter Visit Diagnoses + + | Diagnosis | + + | Postop check - Primary Follow-up examination, following unspecified surgery | + + documented in this encounter
--- OUTSIDE RECORDS SUMMARY | ~2019-05-05 | XMS | Encounter Summary ---
Demographics + + + | Address | [address] | | | [place] [address] | + + + | Home Phone [...] [place] | | | | | [address] | | + + + + + Care Team Providers + +------+ + | Care Central Office Installer Name | Role | Phone | [...] + + | 09/29/ | Office | [facility] [place] | Offenstein, | COPD (chronic | | 2013 | Visit | PULMONARY [address] | Ayana Looney MD | obstructive | | | | [place], | | pulmonary disease) | | | | [place] [address] | | (Primary Dx); MARCE | | | | [phone] | | (obstructive sleep | | | [...] on level ground. She is exercising re Ultorarly. 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 Respiratory Therapy Supplies [facility] ResMed S9 auto CPAP 5-9 [...] made to ensure accuracy; however, inadvertent computerized awning hanger supervisor errors may be pre sent. Electronically signed by: Ayana Taylor MD 09/29/2013 13:51 documented in t his encounter Plan of Treatment +--------+ + + + + | Date | Type | Specialty | Care Team | Description | +--------+ + + + + | 05/30/ | Office | Rheumatology | Santosh Sumner, | | | 2018 | Visit | | [address] | | | | | | [facility] | | | | | | [place] [address] | | | | | | [phone] | | | | | | | | +--------+ + + + + | 06/08/ | Office | Physical Medicine | Rocky Santos, | | | 2019 | Visit | and Rehabilitation | MD Nichole Hind[address] | | | | | | [place] | | | | | | [address] | | | | | | | | +--------+ + + + + | 06/16/ | Appointment | Pulmonology | Eveline Jaffe | | | 2019 | | | MD [address] | | | | | | [address] [place] | | | | | | [place] [address] | | | | | | [phone] | | | | | | | | +--------+ + + + + | 06/16/ | Office | Pulmonology | Eveline Jaffe | | | 2019 | Visit | | MD Nichole Carter | | | | | | [address] [place] | | | | | | [place] [address] | | | | | | [phone] | | | | | | | | +--------+ + + + + | 08/24/ | Office | Cardiology | Anisha Lopez DO | | | 2019 | Visit | | [address] | | | | | | [place] | | | | | | [address] | | | | | | | [...]
--- OUTSIDE RECORDS SUMMARY | ~2019-05-05 | XMS | Encounter Summary ---
Demographics + + + | Address | [address] | | | [place] [address] | + + + | Home Phone [...] [place] | | | | | [address] | | + + + + + Care Team Providers + +------+ + | Care [employer] Name | Role | Phone | + [...] + + | 12/06/ | Telephone | [facility] | Giuliano Padilla, | Other | | 2018 | | ORTHOPEDIC SURGERY | [address] [facility] | | | | | [address] [facility] | [place], [place] | | | | | [place], [place] | [address] | | | | | [address] | | | | | | [phone] | | | +--------+ + + + [...] | | | | | [place] [address] | | | | | | [phone] | | | | | | | | +--------+ + + + + | 06/08/ | Office | Physical Medicine | Rocky Santos, | | | 2019 | Visit | and Rehabilitation | [address] | | | | | | [place] | | | | | | [address] | | | | | | | | +--------+ + + + + | 06/16/ | Appointment | Pulmonology | Eveline Jaffe | | | 2019 | | | MD Raul [address] | | | | | | [address] [place] | | | | | | [place] [address] | | | | | | [phone] | | | | | | | | +--------+ + + + + | 06/16/ | Office | Pulmonology | Eveline Jaffe | | | 2019 | Visit | | MD [address] | | | | | | [address] [place] | | | | | | [place] [address] | | | | | | [phone] | | | | | | | | +--------+ + + + + | 08/24/ | Office | Cardiology | Anisha Lopez DO | | | 2019 | Visit | | [address] | | | | | | [place] | | | | | | [address] | | | | | | | [...]
--- OUTSIDE RECORDS SUMMARY | ~2019-05-05 | XMS | Encounter Summary ---
Demographics + + + | Address | [address] | | | [place] [address] | + + + | Home Phone [...] [place] | | | | | [address] | | + + + + + Care Team Providers + +------+ + | Care Facility Rehab Director Name | Role | Phone | [...] | | | | | Procedures | [address] | | | | | | OFFICE VISIT | Phone: | | | | | | REGULAR | [phone] | | | | | | | Fax: | | | | | | | [phone] | | +--------+--------+ + + + + Encounter Details +--------+---------+ + + + | Date | Type | Department | Care Team | Description | +--------+---------+ + + + | 11/11/ | Office | [facility] | Offenstein, | MARCE (obstructive | | 2013 | Visit | PULMONARY [address] | Ayana Looney MD | sleep apnea) | | | | [place], | | (Primary Dx); COPD | | | | [place] [address] | | (chronic obstructive | | | | [phone] | | pulmonary disease); | | | [...] [facility]) on prednisone and methotrexate, Dr. 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 Respiratory Therapy Supplies [facility] Tunii S9 auto CPAP 5-9 cm H2O. Heater [...] normal CPAP Data: Dates: 10/11/13-11/09/13 Machine type: [employer] auto CPAP Home Health Company: In Home [...] continued struggles, we can refer to our [facility] CPAP clinic. 2.I reviewed how [...] made to ensure accuracy; however, inadvertent computerized crm marketing executive errors may be pre sent. Electronically signed by: Ayana Taylor MD 11/11/2013 14:09 documented in t his encounter Plan of Treatment +--------+ + + + + | Date | Type | Specialty | Care Team | Description | +--------+ + + + + | 05/30/ | Office | Rheumatology | Santosh Sumner, | | | 2019 | Visit | | [address] | | | | | | [address] | | | | | | [place] [address] | | | | | | [phone] | | | | | | | | +--------+ + + + + | 06/08/ | Office | Physical Medicine | Rocky Santos, | | | 2019 | Visit | and Rehabilitation | MD [address] | | | | | | [place] | | | | | | [address] | | | | | | | | +--------+ + + + + | 06/16/ | Appointment | Pulmonology | Eveline Jaffe | | | 2019 | | | MD [address] | | | | | | [place] | | | | | | [place] [address] | | | | | | [phone] | | | | | | | | +--------+ + + + + | 06/16/ | Office | Pulmonology | Eveline Jaffe | | | 2019 | Visit | | MD Nichole Carter | | | | | | [address] [place] | | | | | | [place] [address] | | | | | | [phone] | | | | | | | | +--------+ + + + + | 08/24/ | Office | Cardiology | Anisha Lopez DO | | | 2020 | Visit | | [address] | | | | | | [place] | | | | | | [address] | | | | | | | [...]
--- OUTSIDE RECORDS SUMMARY | ~2019-05-05 | XMS | Encounter Summary ---
Demographics + + + | Address | [address] | | | [place] [address] | + + + | Home Phone [...] [place] | | | | | [address] | | + + + + + Care Team Providers + +------+ + | Care Obstetrics And Gynecology Professor Name | Role | Phone | [...] | | | | CENTER [address] | [facility] [place] | infectious organism | | | | [place] | [place] [address] | (Primary Dx); COPD | | | | [address] | [phone] | exacerbation (HCC) | | | | [phone] | | | +--------+ + + + [...] be sent through Care Everywhere.ADULT, PNEUMONI A ([place])COPD FLARE ([place])documented in this encounter Medications at Time of [...] | 2018 | Visit | | [address] | | | | | | [facility] | | | | | | [place] [address] | | | | | | [phone] | | | | | | | | +--------+ + + + + | 06/08/ | Office | Physical Medicine | Rocky Santos, | | | 2019 | Visit | and Rehabilitation | MD [address] | | | | | | [place] | | | | | | [address] | | | | | | | | +--------+ + + + + | 06/16/ | Appointment | Pulmonology | Eveline Jaffe | | | 2019 | | | MD [address] | | | | | | [address] [place] | | | | | | [place] [address] | | | | | | [phone] | | | | | | | | +--------+ + + + + | 06/16/ | Office | Pulmonology | Eveline Jaffe | | 2019 | Visit | | MD [address] | | | | | | [address] [place] | | | | | | [place] [address] | | | | | | [phone] | | | | | | | | +--------+ + + + + | 08/24/ | Office | Cardiology | Anisha Lopez DO | | | 2019 | Visit | | [address] | | | | | | [place] | | | | | | [address] | | | | | | | [...] [address] | [place] | [phone] | | [facility] | | [address] | | | - LABORATORY | | [...] - 1.030 | [facility] | | | [place] | | | [facility] | | [...] ST. | [address] | [place] | [phone] | | [facility] | | [address] | | | - LABORATORY | | [...] | | | | | | [facility] | | | | | [...] [address] | [place] | [phone] | | [facility] | | [address] | | | - LABORATORY | | [...] + | [address] | [address] | [place] | [phone] | | [facility] | | [address] | | | - LABORATORY | | [...] + | [address] | [address] | [place], [place] | [phone] | | [facility] | | [address] | | | - LABORATORY | | [...] | | | FILTRATION | mL/min/1.73m2 | [facility] | | | AUSTRIAN | RATE,ESTIMATED | | MEDICAL | | | | mL/min/1.49g4Hlbm than | | CENTER - | | [...] ST. | [address] | [place] | [phone] | | [facility] | | [address] | | | - LABORATORY | | [...]
--- OUTSIDE RECORDS SUMMARY | ~2019-05-05 | XMS | Encounter Summary ---
Demographics + + + | Address | [address] | | | [place] [address] | + + + | Home Phone [...] [place] | | | | | [address] | | + + + + + Care Team Providers + +------+ + | Care Major Assembly Inspector Name | Role | Phone | [...] + + | 08/18/ | Telephone | [facility] | Adelita Lu MD | Annual Exam | | 2013 | | MED CTR MEDICAL | [address] [facility] | | | | | [facility] [address] | [place] | | | | | [address] | [address] | | | | | [place] [address] | [phone] | | | | | [phone] | | | +--------+ + + + [...] | | | | | [place] [address] | | | | | | [phone] | | | | | | | | +--------+ + + + + | 06/08/ | Office | Physical Medicine | Rocky Santos, | | | 2019 | Visit | and Rehabilitation | [address] | | | | | | [place] | | | | | | [address] | | | | | | | | +--------+ + + + + | 06/16/ | Appointment | Pulmonology | Evelnie Jaffe | | | 2019 | | | MD [address] | | | | | | [address] [place] | | | | | | [place] [address] | | | | | | [phone] | | | | | | | | +--------+ + + + + | 06/16/ | Office | Pulmonology | Eveline Jaffe | | | 2019 | Visit | | MD [address] | | | | | | [address] [place] | | | | | | [place] [address] | | | | | | [phone] | | | | | | | | +--------+ + + + + | 08/24/ | Office | Cardiology | Anisha Lopez DO | | | 2019 | Visit | | [address] | | | | | | [place] | | | | | | [address] | | | | | | | | +--------+ + + + + documented as of this encounter Results PFT PULMONARY FUNCTION TESTING ORDERS Full PFT ([place] w/BD, lung volumes, diffusion)?: Yes; Spirometry?: Yes; [...] signed by: Ayana Taylor MD 09/01/2013 6:07 [facility] | | | [facility] CC: Davis Ivan | | | | [...] Ayana Taylor MD 09/01/2013 6:07[facility] | | [facility] Davis Ivan | |[facility] | | | |CC: Davis Ivan | + + documented in this encounter Visit Diagnoses + + | Diagnosis | + + | Lung cancer (HCC) - Primary Malignant neoplasm of bronchus and lung, unspecified site | + + documented in this encounter"
--- OUTSIDE RECORDS SUMMARY | ~2019-05-05 | XMS | Encounter Summary ---
Demographics + + + | Address | [address] | | | [place] [address] | + + + | Home Phone [...] [place] | | | | | [address] | | + + + + + Care Team Providers + +------+ + | Care Toaster Element Repairer Name | Role | Phone | + +------+ + | Davis Ivan MD | PCP | | + +------+ + Encounter Details +--------+ + + + + | Date | Type | Department | Care Team | Description | +--------+ + + + + | 03/30/ | Hospital | [facility] | Conversion | | | 2012 | Encounter | CENTER PREADMIT | Transaction, | | | | | CLINIC [address] | Provider Unknown | | | | | [place], [place] | | | | | | [address] | (Fax) | | | | | [phone] | | | +--------+ + + + [...] | 2019 | Visit | | [facility] | | | | | | [facility] | | | | | | [place] [address] | | | | | | [phone] | | | | | | | | +--------+ + + + + | 06/08/ | Office | Physical Medicine | Rocky Santos, | | | 2019 | Visit | and Rehabilitation | MD [address] | | | | | | [place] | | | | | | [address] | | | | | | | | +--------+ + + + + | 06/16/ | Appointment | Pulmonology | Eveline Jaffe | | | 2019 | | | MD [address] | | | | | | [address] [place] | | | | | | [place] [address] | | | | | | [phone] | | | | | | | | +--------+ + + + + | 06/16/ | Office | Pulmonology | Eveline Jaffe | | | 2019 | Visit | | MD [address] | | | | | | [address] [place] | | | | | | [place] [address] | | | | | | [phone] | | | | | | | | +--------+ + + + + | 08/24/ | Office | Cardiology | Anisha Lopez DO | | | 2019 | Visit | | [address] | | | | | | [place] | | | | | | [address] | | | | | | | [...] EXTERNAL LAB | | Testing performed at [facility];[address] [place] [address];[place] [address] MRSA PCR | | | NEGATIVE Testing performed at | | | [address];[place] [address] | | + + + + +---------+ + + | Performing | Address | City/State/Zipcode | Phone Number | | Organization | | | | + +---------+ + + | EXTERNAL LAB | | | | + +---------+ + + documented in this encounter Visit Diagnoses Not on filedocumented in this encounter"
--- OUTSIDE RECORDS SUMMARY | ~2019-05-05 | XMS | Encounter Summary ---
Demographics + + + | Address | [address] | | | [place] [address] | + + + | Home Phone [...] [place] | | | | | [address] | | + + + + + Care Team Providers + +------+ + | Care Substation Technician Name | Role | Phone | + +------+ + | Davis Ivan MD | PCP | | + +------+ + Encounter Details +--------+ + + + + | Date | Type | Department | Care Team | Description | +--------+ + + + + | 07/12/ | Hospital | [facility] | Conversion | Pain | | 2014 | Encounter | CONVERSION DEP [address] | Transaction, | | | | | [address] | Provider Unknown | | | | | [place] | [phone] | | | | | [address] | | | | | | [phone] | | | +--------+ + + + [...] | 2018 | Visit | | [address] | | | | | | [place] | | | | | | [place] [address] | | | | | | [phone] | | | | | | | | +--------+ + + + + | 06/08/ | Office | Physical Medicine | Rocky Santos, | | | 2019 | Visit | and Rehabilitation | MD [address] | | | | | | [place] | | | | | | [address] | | | | | | | | +--------+ + + + + | 06/16/ | Appointment | Pulmonology | Eveline Jaffe | | | 2019 | | | MD [address] | | | | | | [address] [place] | | | | | | [place] [address] | | | | | | [phone] | | | | | | | | +--------+ + + + + | 06/16/ | Office | Pulmonology | Eveline Jaffe | | | 2019 | Visit | | MD [address] | | | | | | [address] [place] | | | | | | [place] [address] | | | | | | [phone] | | | | | | | | +--------+ + + + + | 08/24/ | Office | Cardiology | Anisha Lopez DO | | | 2019 | Visit | | [address] | | | | | | [place] | | | | | | [address] | | | | | | | [...]
--- OUTSIDE RECORDS SUMMARY | ~2019-05-05 | XMS | Encounter Summary ---
Demographics + + + | Address | [address] | | | [place] [address] | + + + | Home Phone [...] [place] | | | | | [address] | | + + + + + Care Team Providers + +------+ + | Care Dermatological Surgeon Name | Role | Phone | [...] | | n | low back | [address] | [address] [place] | | | | | pain without | [place], | [place], [place] | | | | | sciatica | [place] [address] | [address] Phone: | | | | | Hyperalgesia | Phone: | [phone] | | | | | History of | [phone] | Fax: | | | | | lumbar | Fax: | [phone] | | | | | fusion | [phone] | | | | | | Failed [...] | | | | low back | [address] | [address] | | | | | pain without | [place], | [place] | | | | | sciatica | [place] [address] | [place], [place] | | | | | Hyperalgesia | Phone: | [phone] | | | | | History of | [phone] | Phone: | | | | | lumbar | Fax: | [phone] | | | | | fusion | [phone] | Fax: | | | | | | | [phone] | + + + + + + [...] | spondylosis | [address] | [address] | | | | n | Procedures | Epi Gaston | [place], | | | | | Follow up | [place] | [place] [address] | | | | | DOS | [place] [address] | Phone: | | | | | 06/08/2019 | Phone: | [phone] | | | | | | [phone] | Fax: | | | | | | Fax: | [phone] | | | | | | [phone] | | + +--------+ + + + + Encounter Details +--------+---------+ + + + | Date | Type | Department | Care Team | Description | +--------+---------+ + + + | 04/19/ | Office | [facility] | Rocky Santos, | Chronic bilateral | | 2019 | Visit | PHYSIATRY [address] | [address] | low back pain | | | | [place], | [place], [place] | without sciatica | | | | [place] [address] | [address] | (Primary Dx); | | | | [phone] | | Hyperalgesia; | | | | [...] fro m the original. Rocky Santos MD [address] [place] [address], [address] [place], [place] [address] FAX: PHYSICAL MEDICINE AND REHABILITATION H&P CHIEF COMPLAINT: Chief Complaint Patient presents with Back Pain HISTORY OF PRESENT ILLNESS: Thea Mary Degrootley s a 73 y.o. female being seen today at he request of Caitlin Chino MD for the complaint of bilateral low back pain. The symptoms have been gradually worsening. Thea Mary Degrootley has history of lumbar fusion x2. Thea [...] Acute sinusitis 09/14/2013 AF (paroxysmal atrial fibrillation) ([facility]) Alcohol abuse quit in 05/2012; 40 year habit Anemia Angina of effort ([facility]) Arrhythmia Arthritis Bursitis of left shoulder Conjunctivitis COPD (chronic obstructive pulmonary disease) ([facility]) on albuterol COPD exacerbation ([facility]) Depression HONG (dyspnea on exertion) Folliculitis Full dentures upper & lower GERD (gastroesophageal reflux disease) Hemorrhoids, internal, with bleeding Hx of blood clots Hyperlipidemia on simvastatin Hypertension on clonidine and lisinopril Hypothyroidism 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 Right wrist pain Spinal stenosis has tried cortisone injections Spondylolisthesis of cervical region Sputum culture positive for Scopulariopsis species Squamous cell carcinoma of lung ([facility]) 07/2013 right lower lobe Stroke ([facility]) 2006 Stroke ([facility]) 2007 left sided weakness Thyroid disease Unspecified visual disturbance Upper GI bleed 06/[address] [facility] Vitamin D deficiency Wears dentures PAST SURGICAL HISTORY: Past Surgical History: Procedure Laterality Date BLADDER SUSPENSION 2000 BRONCHOSCOPY 07/11/2014 EBUS with right hilar LN biopsy, [facility] Dr. Sierra BRONCHOSCOPY N/A 09/16/2013 R. Thorascopic Lower Lobectomy and Thoracic Lymphadenectomy; Laterality: N/A Chest Right S urgeon: José Miguel Mace Jr., MD; Location: [facility] MAIN OR CATARACT REMOVAL CERVICAL FUSION Posterior 04/06/2013 with decompression C4-C6 Surgeon: Silviano Cabrera MD Location: [facility] MAIN OR CERVICAL FUSION Anterior 01/19/2013 C4-6 Surgeon: Silviano Cabrera MD; Location: [facility] MAIN OR CHOLECYSTECTOMY 2001 COLONOSCOPY 06/2014 [...] [facility] Arthroplasty; Surgeon: Giuliano Padilla MD; Location: [facility] MAIN O R INJECTION STEROIDAL Right 05/27/2012 L5 S1 TFESI INJECTION STEROIDAL Right 07/15/2012 Caudal Block with Cath Target R L5,S1 LOBECTOMY Right 09/16/2013 right lower lobe with bronchoscopy LUMBAR FUSION Anterior 03/29/2014 L4-5, L5-S1 Surgeon: Silviano Cabrera MD; Location: [facility] MAIN OR LUMBAR FUSION N/A 03/31/2014 with decompression; Surgeon: Silviano Cabrera MD; Location [facility] MAIN OR LUMBAR FUSION N/A 03/31/2014 L4-S1; Surgeon: Silviano Cabrera MD Location: [facility] MAIN OR LUNG BIOPSY Right 07/21/2013 right lower lobe SHOULDER SURGERY Right 12/2011 PENNY AND BSO 1974 THORACOSCOPY Right 09/16/2013 Surgeon: José Miguel Mace Jr., MD; Location: [facility] MAIN OR THUMB SURGERY 12/02/2011 TONGUE SURGERY benign per pt TUNNELED VENOUS PORT PLACEMENT N/A 07/28/2014 Procedure: Port Placement; Surgeon: Chalino Chiu MD; Location: [facility] MAIN OR CURRENT MEDICATIONS: Current Outpatient [...] Supplies (NEBULIZER/TUBING/MOUTHPIECE) KIT Use as directed with [employer] Custom ulizer machine. Dx: COPD CASIE: lifetime 1 [...] has no apparent deficits with short or steam tank operator memory. She has appropriate fund of [...] in detail. Spinal cord stimulation uses fabrizio NovusEdgeal deviceto send signals tothe nerve pathways inside [...] stimulation including neuropsyc hology consult. A small emergency medical technician basic sends signals to your spinal cord. These [...] | | | | | | [place] [id number] | | | | | | [phone] | | | | | | | | +--------+ + + + + | 06/08/ | Office | Physical Medicine | Rocky Santos, | | | 2019 | Visit | and Rehabilitation | MD [address] | | | | | | [place] | | | | | | [address] | | | | | | | | +--------+ + + + + | 06/16/ | Appointment | Pulmonology | Eveline Jaffe | | 2019 | | | MD [address] | | | | | | [place] [address] | | | | | | [place] [id number] | | | | | | [phone] | | | | | | | | +--------+ + + + + | 06/16/ | Office | Pulmonology | Eveline Jaffe | | | 2019 | Visit | | MD Raul [address] | | | | | | [address] [place] | | | | | | [place] [id number] | | | | | | [phone] | | | | | | | | +--------+ + + + + | 08/24/ | Office | Cardiology | Anisha Lopez DO | | | 2019 | Visit | | [address] | | | | | | [place] | | | | | | [address] | | | | | | | [...]
--- OUTSIDE RECORDS SUMMARY | ~2019-05-05 | XMS | Encounter Summary ---
Demographics + + + | Address | [address] | | | [place] [address] | + + + | Home Phone [...] | Author | [facility] | | | [...] [place] | | | | | [address] | | + + + + + Care Team Providers + +------+ + | Care Gasket Former Name | Role | Phone | [...] Malignant | MD Adelita | [address] | | | | | neoplasm of | [address] | [place], | | | | | main | [address] | [place] | | | | | bronchus, | [place], | [address] | | | | | right (HCC) | [place] | Phone: | | | | | Procedures | [address] | [phone] | | | | | MRI Brain w | Phone: | Fax: | | | | | wo Contrast | [phone] | [phone] | | | | | | Fax: | | | | | | | [phone] | | +--------+--------+ + + + + [...] | | | [facility] [address] | [place], [place] | right (HCC) (Primary | | | | [address] [place] | [address] | Dx) | | | | [place] [address] | [phone] | | | | | [phone] | | | +--------+ + + + [...] | | | | | [place] [address] | | | | | | [phone] | | | | | | | | +--------+ + + + + | 06/08/ | Office | Physical Medicine | Rocky Santos, | | | 2019 | Visit | and Rehabilitation | MD Nichole Zapata | | | | | | [place] | | | | | | [address] | | | | | | | | +--------+ + + + + | 06/16/ | Appointment | Pulmonology | Eveline Jaffe | | 2019 | | | MD [address]ole [address] | | | | | | [address] [place] | | | | | | [place] [address] | | | | | | [phone] | | | | | | | | +--------+ + + + + | 06/16/ | Office | Pulmonology | Eveline Jaffe | | | 2019 | Visit | | MD Nichole [address] | | | | | | [address] [place] | | | | | | [place] [address] | | | | | | [phone] | | | | | | | | +--------+ + + + + | 08/24/ | Office | Cardiology | Anisha Lopez DO | | | 2019 | Visit | | [address] | | | | | | [place] | | | | | | [address] | | | | | | | [...] + | MISCELLANEOUS LAB | | | [phone] | + +---------+ + + | MISCELANIOUS LAB | | | [phone] | + +---------+ + + documented in this encounter Visit Diagnoses + + | Diagnosis | + + | Malignant neoplasm of main bronchus, right (HCC) - Primary | + + documented in this encounter"
--- OUTSIDE RECORDS SUMMARY | ~2019-05-05 | XMS | Encounter Summary ---
Demographics + + + | Address | [address] | | | [place] [address] | + + + | Home Phone [...] [place] | | | | | [address] | | + + + + + Care Team Providers + +------+ + | Care Etl Lead Name | Role | Phone | + [...] Squamous | Jimmy C, DO | [address] | | | | | cell | [address] | [place], | | | | | carcinoma of | [address] | [place] [address] | | | | | lung, stage | [place], | Phone: | | | | | I, right | [place] [address] | [phone] | | | | | (HCC) | Phone: | Fax: | | | | | Procedures | [phone] | [phone] | | | | | CT Treatment | Fax: | | | | | | Plan | [phone] | | | | | | Complex [...] Squamous | Jimmy C, DO | [address] | | | | | cell | [address] | [place], | | | | | carcinoma of | [address] | [place] [address] | | | | | lung, stage | [place], | Phone: | | | | | I, right | [place] [address] | [phone] | | | | | (HCC) | Phone: | Fax: | | | | | Procedures | [phone] | [phone] | | | | | CT Treatment | Fax: | | | | | | Plan | [phone] | | | | | | Complex | | | +--------+--------+ + + + + Encounter Details +--------+ + + + + | Date | Type | Department | Care Team | Description | +--------+ + + + + | 07/26/ | Hospital | [facility] | Jimmy Banegas DO | 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 | Encounter | MED CTR CT [address] | [address] | carcinoma of lung, | | | | [place], | [place], [place] | stage I, right (HCC) | | | | [place] [address] | [address] | | | | | [phone] | | | +--------+ + + + [...] | | | | | [place] [address] | | | | | | [phone] | | | | | | | | +--------+ + + + + | 06/08/ | Office | Physical Medicine | Rocky Santos, | | | 2019 | Visit | and Rehabilitation | MD [address] | | | | | | [place] | | | | | | [address] | | | | | | | | +--------+ + + + + | 06/16/ | Appointment | Pulmonology | Eveline Jaffe | | 2019 | | | MD [address]ole [address] | | | | | | [address] [place] | | | | | | [place] [address] | | | | | | [phone] | | | | | | | | +--------+ + + + + | 06/16/ | Office | Pulmonology | Eveline Jaffe | | | 2019 | Visit | | MD Raul [address] | | | | | | [address] | | | | | | [place] [address] | | | | | | [phone] | | | | | | | | +--------+ + + + + | 08/24/ | Office | Cardiology | Anisha Lopez DO | | | 2019 | Visit | | [address] | | | | | | [place] | | | | | | [address] | | | | | | | [...]
--- OUTSIDE RECORDS SUMMARY | ~2019-05-05 | XMS | Encounter Summary ---
Demographics + + + | Address | [address] | | | [place] [address] | + + + | Home Phone [...] [place] | | | | | [address] | | + + + + + Care Team Providers + +------+ + | Care Production Team Advisor Name | Role | Phone | [...] + | 08/07/ | Hospital | [facility] | Adelita Lu MD | 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 | | | | INFUSION [address] | [place], [place] | lung, unspecified | | | | [place], | [address] | laterality (HCC); | | | | [place] [address] | [phone] | Pulmonary nodules | | | | [phone] | | | +--------+ + + + [...] W | | | | | | [facility] | | | | | | [place] [address] | | | | | | [phone] | | | | | | | | +--------+ + + + + | 06/08/ | Office | Physical Medicine | Rocky Santos, | | | 2019 | Visit | and Rehabilitation | [address] | | | | | | [place] | | | | | | [address] | | | | | | | | +--------+ + + + + | 06/16/ | Appointment | Pulmonology | Eveline Jaffe | | | 2019 | | | MD [address]ole [address] | | | | | | [address] [place] | | | | | | [place] [address] | | | | | | [phone] | | | | | | | | +--------+ + + + + | 06/16/ | Office | Pulmonology | Eveline Jaffe | | | 2019 | Visit | | MD [address]ole [address] | | | | | | [address] [place] | | | | | | [place] [address] | | | | | | [phone] | | | | | | | | +--------+ + + + + | 08/24/ | Office | Cardiology | Anisha Lopez DO | | | 2019 | Visit | | [address] | | | | | | [place] | | | | | | [address] | | | | | | | [...] | Basophils | | K/uL | [facility] | | | | | | MEDICAL [...] [address] | [place] | [phone] | | [facility] | | [address] | | | - LABORATORY | | | | + + + + + | [facility] | [address] | [place] | | | [facility] | | [address] | | | - LABORATORY | | [...] VANN | | | [facility] | RATE,ESTIMATED | | MEDICAL | | | | mL/min/1.28b2Kjif than | | CENTER - | | [...] [address] | [place] | [phone] | | [facility] | | [address] | | | - LABORATORY | | | | + + + + + | [facility] | [address] | [place], [place] | | | [facility] | | [address] | | | - LABORATORY | | [...]
--- OUTSIDE RECORDS SUMMARY | ~2019-05-05 | XMS | Encounter Summary ---
Demographics + + + | Address | [address] | | | [place] [address] | + + + | Home Phone [...] [place] | | | | | [address] | | + + + + + Care Team Providers + +------+ + | Care Chain Splitter Name | Role | Phone | + [...] + + | 10/11/ | Office | [facility] [place] | [place], | Cough; Squamous cell | | 2014 | Visit | PULMONARY [address] | Ayana Looney MD | lung cancer, | | | | [place], | | unspecified | | | | [place] [address] | | laterality (HCC); | | | | [phone] | | COPD (chronic | | | [...] with [facility] I would agree that an endoscopy would [...] last radiation treatment. She was admitted to [facility]. She was treated with 3 days of: [...] [facility] on prednisone and methotrexate, Dr. [place] Hyperlipidemia on simvastatin Hypertension on clonidine and lisinopril Hypothyroidism GERD (gastroesophageal reflux disease) Stroke ([facility]) 2006 Stroke ([facility]) 2008 Squamous cell carcinoma of lung ([facility] [...] 07/11/2014 EBUS with right hilar LN biopsy, [facility] Dr. 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 60 tablet 1 Respiratory Therapy Supplies [facility] [...] in clinic today. Chest CT scan from [facility] was reviewed. This shows resolution of [...] made to ensure accuracy; however, inadvertent computerized accounting systems analyst errors may be pre sent. documented in [...] | | | | | [place] [address] | | | | | | [phone] | | | | | | | | +--------+ + + + + | 06/08/ | Office | Physical Medicine | Rocky Santos, | | | 2019 | Visit | and Rehabilitation | MD [address] | | | | | | [place] | | | | | | [address] | | | | | | | | +--------+ + + + + | 06/16/ | Appointment | Pulmonology | Eveline Jaffe | | | 2019 | | | MD [address]ole [address] | | | | | | [address] | | | | | | [place] [address] | | | | | | [phone] | | | | | | | | +--------+ + + + + | 06/16/ | Office | Pulmonology | Eveline Jaffe | | | 2019 | Visit | | MD Nichole Carter | | | | | | [address] | | | | | | [place] [address] | | | | | | [phone] | | | | | | | | +--------+ + + + + | 08/24/ | Office | Cardiology | Anisha Lopez DO | | | 2019 | Visit | | [address] | | | | | | [place] | | | | | | [address] | | | | | | | [...]
--- OUTSIDE RECORDS SUMMARY | ~2019-05-05 | XMS | Encounter Summary ---
Demographics + + + | Address | [address] | | | [place] [address] | + + + | Home Phone [...] | [facility] [place] | | | and [...] [place] | | | | | [address] | | + + + + + Care Team Providers + +------+ + | Care Travel Rn Or Name | Role | Phone | + +------+ + PCP | Unavailable | + +------+ + Encounter Details +--------+ + + + + | Date | Type | Department | Care Team | Description | +--------+ + + + + | 01/12/ | Hospital | [facility] IP | Conversion | Pain | | 2013 | Encounter | CONVERSION [address] | Transaction, | | | | | [address] | Provider Unknown | | | | | [place], [place] | [phone] | | | | | [address] | | | | | | [phone] | | | +--------+ + + + [...] | | | | | [place] [address] | | | | | | [phone] | | | | | | | | +--------+ + + + + | 06/08/ | Office | Physical Medicine | Rocky Santos, | | | 2019 | Visit | and Rehabilitation | MD [address] | | | | | | [place] | | | | | | [address] | | | | | | | | +--------+ + + + + | 06/16/ | Appointment | Pulmonology | Eveline Jaffe | | 2019 | | | MD [address] | | | | | | [address] | | | | | | [place] [address] | | | | | | [phone] | | | | | | | | +--------+ + + + + | 06/16/ | Office | Pulmonology | Eveline Jaffe | | | 2019 | Visit | | MD Raul [address] | | | | | | [address] | | | | | | [place] [address] | | | | | | [phone] | | | | | | | | +--------+ + + + + | 08/24/ | Office | Cardiology | Anisha Lopez DO | | | 2019 | Visit | | [address] | | | | | | [place] | | | | | | [address] | | | | | | | [...]
--- OUTSIDE RECORDS SUMMARY | ~2019-05-05 | XMS | Encounter Summary ---
Demographics + + + | Address | [address] | | | [place] [address] | + + + | Home Phone [...] [place] | | | | | [address] | | + + + + + Care Team Providers + +------+ + | Care Dominatrix Name | Role | Phone | + +------+ + | Davis Ivan MD | PCP | | + +------+ + Encounter Details +--------+ + + + + | Date | Type | Department | Care Team | Description | +--------+ + + + + | 11/06/ | Orders Only | [facility] | Gurmeet Vargas | Bronchogenic cancer | | 2017 | | PULMONARY [address] | MD [address] | of right lung (HCC) | | | | [place], | [place] | (Primary Dx) | | | | [place] [address] | [place] [address] | | | | | [phone] | [phone] | | | | | | | [...] | | | | | [place] [address] | | | | | | [phone] | | | | | | | | +--------+ + + + + | 06/08/ | Office | Physical Medicine | Rocky Santos, | | | 2019 | Visit | and Rehabilitation | MD [address] | | | | | | [place] | | | | | | [address] | | | | | | | | +--------+ + + + + | 06/16/ | Appointment | Pulmonology | Eveline Jaffe | | 2019 | | | MD Nichole Carter [address] | | | | | | [address] [place] | | | | | | [place] [address] | | | | | | [phone] | | | | | | | | +--------+ + + + + | 06/16/ | Office | Pulmonology | Eveline Jaffe | | | 2019 | Visit | | MD Raul [address] | | | | | | [address] [place] | | | | | | [place] [address] | | | | | | [phone] | | | | | | | | +--------+ + + + + | 08/24/ | Office | Cardiology | Anisha Lopez DO | | | 2019 | Visit | | [address] | | | | | | [place] | | | | | | [address] | | | | | | | [...] 10/29/[address] chest 11/30/2015. | [facility] | | FINDINGS: Frontal and lateral views of the chest. [facility] | | chest port in place [...] + | [facility] | [address] 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
--- OUTSIDE RECORDS SUMMARY | ~2019-05-05 | XMS | Encounter Summary ---
Demographics + + + | Address | [address] | | | [place] [address] | + + + | Home Phone [...] [place] | | | | | [address] | | + + + + + Care Team Providers + +------+ + | Care Loader Unloader Name | Role | Phone | + +------+ + | Davis Ivan MD | PCP | | + +------+ + Encounter Details +--------+ + + + + | Date | Type | Department | Care Team | Description | +--------+ + + + + | 03/30/ | Hospital | [facility] | Offenstein, | Pulmonary nodule | | 2012 | Encounter | MED CTR LABORATORY | Ayana Looney MD | | | | | [address] | | | | | | [place] | | | | | | [address] | | | | | | [phone] | | | +--------+ + + + [...] | 2018 | Visit | | [address] | | | | | | [facility] | | | | | | [place] [address] | | | | | | [phone] | | | | | | | | +--------+ + + + + | 06/08/ | Office | Physical Medicine | Rocky Santos, | | | 2019 | Visit | and Rehabilitation | MD [address] | | | | | | [place] | | | | | | [address] | | | | | | | | +--------+ + + + + | 06/16/ | Appointment | Pulmonology | Eveline Jaffe | | | 2019 | | | MD [address] | | | | | | [address] [place] | | | | | | [place] [address] | | | | | | [phone] | | | | | | | | +--------+ + + + + | 06/16/ | Office | Pulmonology | Eveline Jaffe | | | 2019 | Visit | | MD [address] | | | | | | [address] [place] | | | | | | [place] [address] | | | | | | [phone] | | | | | | | | +--------+ + + + + | 08/24/ | Office | Cardiology | Anisha Lopez DO | | | 2019 | Visit | | [address] | | | | | | [place] | | | | | | [address] | | | | | | | [...] | | [facility] | | | [facility] | | | - LABORATORY | + + + + + + + + | Performing | Address | City/State/Zipcode | Phone Number | | Organization | | | | + + + + + | [facility] | [address] | [place] | [phone] | | [facility] | | [address] | | | - LABORATORY | | | | + + + + + | [facility] | [address] | [place] | | | [facility] | | [address] | | | - LABORATORY | | [...] | GOLD TB | | | [facility] | | | | | | MEDICAL [...] by: | | | | | | [facility], | | | | | | [address] | | | | | | [place] | | | | | | [address] | | | | + + + + + + + + | Specimen | + + | Blood specimen | | (specimen) | + + + + + + + | Performing | Address | City/State/Zipcode | Phone Number | | Organization | | | | + + + + + | [facility] | [address] | [place] | [phone] | | [facility] | | [address] | | | - LABORATORY | | | | + + + + + | [facility] | [address] | [place], [place] | | | [facility] | | [address] | | | - LABORATORY | | [...] 500 | | | | | | [facility] | | | | | | [facility] [facility] [id number] CLIA: | | | | | | [id number] | | | | + + + + + + + + | Specimen | + + | Blood specimen | | (specimen) | + + + + + + + | Performing | Address | City/State/Zipcode | Phone Number | | Organization | | | | + + + + + | [facility] | [address] | [place] | [phone] | | [facility] | | [address] | | | - LABORATORY | | | | + + + + + | [facility] | [address] | [place] | | | [facility] | | [address] | | | - LABORATORY | | [...] 500 | | | | | | [facility] | | | | | | [facility] [facility] [id number] CLIA: | | | | | | [id number] | | | | + + + + + + + + | Specimen | + + | Blood specimen | | (specimen) | + + + + + + + | Performing | Address | City/State/Zipcode | Phone Number | | Organization | | | | + + + + + | [facility] | [address] | [place] | [phone] | | [facility] | | [address] | | | - LABORATORY | | | | + + + + + | [facility] | [address] | [place] | | | [facility] | | [address] | | | - LABORATORY | | [...] coccidioidomycosis,altho | | | | | | [facility] titers of 1:2 and | | [...] Corporate | | | | | | Avenue,[place] [address] | | | | | | CLIA: [id number] | | | | + + + + + + + + | Specimen | + + | Blood specimen | | (specimen) | + + + + + + + | Performing | Address | City/State/Zipcode | Phone Number | | Organization | | | | + + + + + | [facility] | [address] | [place], [place] | [phone] | | [facility] | | [address] | | | - LABORATORY | | | | + + + + + | [facility] | [address] | [place], [place] | | | [facility] | | [address] | | | - LABORATORY | | | | + + + + + documented in this encounter Visit Diagnoses + + | Diagnosis | + + | Pulmonary nodule Solitary pulmonary nodule | + + documented in this encounter
--- OUTSIDE RECORDS SUMMARY | ~2019-05-05 | XMS | Clinical Summary ---
Demographics + + + | Address | [address] | | | [place] [address] | + + + | Home Phone | | + + + | Preferred Language | Unknown | + + + | Marital Status | Single | + + + | Gnosticist Affiliation [...] Team Providers + +------+ + | Care Shot Hole Driller Name | Role | Phone | + +------+ + | Ayana Taylor MD | PCP | Unavailable | + +------+ + Source Comments KARISHMA is fully live on both [facility] and [facility] Allergies Not on File Medications Not on [...] | | | + +--------+ +--------+-------+---------+--------+ | OPTICAL ADVISOR MEDICAID | OPTICAL ADVISOR | xxxxxxxx | 06/03/19 | | | [...] | 1945 | [phone] | [place] [address] | | | jana | | | 1 (Home) | | + +--------+ +--------+ + +"
--- OUTSIDE RECORDS SUMMARY | ~2019-05-05 | XMS | Encounter Summary ---
Demographics + + + | Address | [address] | | | [place] [address] | + + + | Home Phone [...] [place] | | | | | [address] | | + + + + + Care Team Providers + +------+ + | Care Rubber Washer Name | Role | Phone | [...] | MED CTR MEDICAL | [address] [facility] | carcinoma of lung, | | | | ONCOLOGY CLINIC 401 | [place], [place] | unspecified | | | | [facility] | [address] | laterality (HCC) | | | | [place] [address] | [phone] | (Primary Dx) | | | | [phone] | | | +--------+ + + + [...] | | | | | [place] [address] | | | | | | [phone] | | | | | | | | +--------+ + + + + | 06/08/ | Office | Physical Medicine | Rocky Santos, | | | 2019 | Visit | and Rehabilitation | [address] | | | | | | [place] | | | | | | [id number] | | | | | | | | +--------+ + + + + | 06/16/ | Appointment | Pulmonology | Eveline Jaffe | | | 2019 | | | MD Nichole Carter | | | | | | [address] [place] | | | | | | [place], [place] [address] | | | | | | [phone] | | | | | | | | +--------+ + + + + | 06/16/ | Office | Pulmonology | Eveline Jaffe | | | 2019 | Visit | | MD Nichole Carter | | | | | | [address] [place] | | | | | | [place] [address] | | | | | | [phone] | | | | | | | | +--------+ + + + + | 08/24/ | Office | Cardiology | Anisha Lopez DO | | | 2019 | Visit | | [address] | | | | | | [place] | | | | | | [address] | | | | | | | [...] not | 57 (L)Comment: | >=60 | [facility] | | | | GLOMERULAR FILTRATION | mL/min/1.73m2 | SOO | | | CYPRIOT | RATE,ESTIMATED | | MEDICAL | | | | mL/min/1.09j5Jtzz than | | CENTER - | | [...] + | [facility] | [address] | [place], [place] | [phone] | | [facility] | | [address] | | | - LABORATORY | | | | + + + + + | [facility] | [address] | [place], [place] | | | [facility] | | [address] | | | - LABORATORY | | [...] [address] | [place] | [phone] | | [facility] | | [address] | | | - LABORATORY | | | | + + + + + | [facility] | [address] | [place] | | | [facility] | | [address] | | | - LABORATORY | | | | + + + + + documented in this encounter Visit Diagnoses + + | Diagnosis | + + | Squamous cell carcinoma of lung, unspecified laterality (HCC) - Primary | + + documented in this encounter"
--- OUTSIDE RECORDS SUMMARY | ~2019-05-05 | XMS | Encounter Summary ---
Demographics + + + | Address | [address] | | | [place] [address] | + + + | Home Phone [...] [place] | | | | | [address] | | + + + + + Care Team Providers + +------+ + | Care Nuts And Bolts Assembler Name | Role | Phone | [...] | | | | | | [place] [address] | | | | | | [phone] | | | +--------+ + + + [...] | | | | | [place] [address] | | | | | | [phone] | | | | | | | | +--------+ + + + + | 06/08/ | Office | Physical Medicine | Rocky Santos | | | 2019 | Visit | and Rehabilitation | [address] | | | | | | [place] | | | | | | [address] | | | | | | | | +--------+ + + + + | 06/16/ | Appointment | Pulmonology | Eveline Jaffe | | 2019 | | | MD [address] | | | | | | [address] [place] | | | | | | [place] [address] | | | | | | [phone] | | | | | | | | +--------+ + + + + | 06/16/ | Office | Pulmonology | Eveline Jaffe | | | 2019 | Visit | | MD [address] | | | | | | [address] [place] | | | | | | [place] [address] | | | | | | [phone] | | | | | | | | +--------+ + + + + | 08/24/ | Office | Cardiology | Anisha Lopez DO | | 2019 | Visit | | [address] | | | | | | [place] | | | | | | [address] | | | | | | | | +--------+ + + + + documented as of this encounter Visit Diagnoses Not on filedocumented in this encounter"
--- OUTSIDE RECORDS SUMMARY | ~2019-05-05 | XMS | Encounter Summary ---
Demographics + + + | Address | [address] | | | [place] [address] | + + + | Home Phone [...] [place] | | | | | [address] | | + + + + + Care Team Providers + +------+ + | Care Food Science Professor Name | Role | Phone | [...] 2019 | | [address] | Loom Fixer Apprentice | ([facility]) | | | | [place] | | | | | | [address] | | | | | | [phone] | | | +--------+ + + + [...] | | | | | [place] [address] | | | | | | [phone] | | | | | | | | +--------+ + + + + | 06/08/ | Office | Physical Medicine | Rocky Santos, | | | 2019 | Visit | and Rehabilitation | MD [address] | | | | | | [place] | | | | | | [address] | | | | | | | | +--------+ + + + + | 06/16/ | Appointment | Pulmonology | Eveline Jaffe | | 2019 | | | MD [address] | | | | | | [address] [place] | | | | | | [place] [address] | | | | | | [phone] | | | | | | | | +--------+ + + + + | 06/16/ | Office | Pulmonology | Eveline Jaffe | | | 2019 | Visit | | MD Raul [address] | | | | | | [address] [place] | | | | | | [place] [address] | | | | | | [phone] | | | | | | | | +--------+ + + + + | 08/24/ | Office | Cardiology | Anisha Lopez DO | | | 2019 | Visit | | [address] | | | | | | [place] | | | | | | [address] | | | | | | | [...] LAB | | | | performed at [facility];[address] | | [facility] | | | | [place] | | LABORATORY | | | | [address];[place], [place] [address] | | | | | | | | | | + + + + + + + + | Specimen | + + | Blood | + + + + + + + | Performing | Address | City/State/Zipcode | Phone Number | | Organization | | | | + + + + + | REFERENCE LAB | [address] [place] [address] | [place] [address] | [phone] | | [facility] | Blvd[address] | | | | LABORATORY | | | | + + + + + | REFERENCE LAB | [address] [place] [address] | [place] [address] | | | [facility] | Blvd. | [...] | | | | | performed at [facility];[address] | | | | | | [facility] | | | | | | Blvd;[place] [address] | | | | | | | | | | + + + + + + + + | Specimen | + + | Blood | + + + + + + + | Performing | Address | City/State/Zipcode | Phone Number | | Organization | | | | + + + + + | REFERENCE LAB | [address] [facility] | [place] [address] | [phone] | | [facility] | Blvd[address] | | | | LABORATORY | | | | + + + + + | REFERENCE LAB | [address] [facility] [address] | [place] [address] | | | [facility] | Blvd[address] | [...] REFERENCE | | | | performed at [facility];[address] | | LAB | | | | [place] | | [facility] | | | | Blvd;[place] [address] | | LABORATORY | | + + + + + + + + | Specimen | + + | Blood | + + + + + + + | Performing | Address | City/State/Zipcode | Phone Number | | Organization | | | | + + + + + | REFERENCE LAB | [address] [facility] [address] | [place] [address] | [phone] | | [facility] | Blvd. | | | | LABORATORY | | | | + + + + + | REFERENCE LAB | [address] | [place] [address] | | | [facility] | Blvd. | [...] REFERENCE | | | | performed at [facility];[address] | | LAB | | | | [place] | | [facility] | | | | Blvd;[place] [address] | | LABORATORY | | + + + + + + + + | Specimen | + + | Blood | + + + + + + + | Performing | Address | City/State/Zipcode | Phone Number | | Organization | | | | + + + + + | REFERENCE LAB | [address] [place] [address] | [place] [address] | [phone] | | [facility] | Blvd. | | | | LABORATORY | | | | + + + + + | REFERENCE LAB | [address] [place] [address] | [place] [address] | | | [facility] | Blvd. | | | | LABORATORY | | | | + + + + + documented in this encounter Visit Diagnoses + + | Diagnosis | + + | Rheumatoid arthritis (HCC) | + + documented in this encounter"
--- OUTSIDE RECORDS SUMMARY | ~2019-05-05 | XMS | Encounter Summary ---
Demographics + + + | Address | [address] | | | [place] [address] | + + + | Home Phone [...] [place] | | | | | [address] | | + + + + + Care Team Providers + +------+ + | Care Battery Assembler Name | Role | Phone | [...] + + | 09/01/ | Hospital | [facility] | Gurmeet Vargas | Tachypnea | | 2019 | Encounter | MED CTR XRAY [address] | MD [address] | | | | | [place] | [address] [place] | | | | | [place] [address] | [place] [address] | | | | | [phone] | [phone] | | | | | | | [...] | | | | type ([facility]) | | | | | | [...] | 2018 | Visit | | [address] | | | | | | [facility] | | | | | | [place] [address] | | | | | | [phone] | | | | | | | | +--------+ + + + + | 06/08/ | Office | Physical Medicine | Rocky Santos, | | | 2019 | Visit | and Rehabilitation | MD [address] | | | | | | [place] | | | | | | [address] | | | | | | | | +--------+ + + + + | 06/16/ | Appointment | Pulmonology | Eveline Jaffe | | 2019 | | | MD [address] | | | | | | [address] | | | | | | [place] [address] | | | | | | [phone] | | | | | | | | +--------+ + + + + | 06/16/ | Office | Pulmonology | Eveline Jaffe | | 2019 | Visit | | MD [address] | | | | | | [address] | | | | | | [place] [address] | | | | | | [phone] | | | | | | | | +--------+ + + + + | 08/24/ | Office | Cardiology | Anisha Lopez DO | | | 2019 | Visit | | [address] | | | | | | [place] | | | | | | [address] | | | | | | | [...]
--- OUTSIDE RECORDS SUMMARY | ~2019-05-05 | XMS | Encounter Summary ---
Demographics + + + | Address | [address] | | | [place] [address] | + + + | Home Phone [...] [place] | | | | | [address] | | + + + + + Care Team Providers + +------+ + | Care Surg Rn Name | Role | Phone | + [...] Looney MD | | | | | [place], | | | | | | [place] [address] | | | | | | [phone] | | | +--------+ + + + [...] | | | | | [place] [address] | | | | | | [phone] | | | | | | | | +--------+ + + + + | 06/08/ | Office | Physical Medicine | Rocky Santos, | | | 2019 | Visit | and Rehabilitation | MD [address] | | | | | | [place] | | | | | | [address] | | | | | | | | +--------+ + + + + | 06/16/ | Appointment | Pulmonology | Eveline Jaffe | | 2019 | | | MD [address] | | | | | | [address] | | | | | | [place] [address] | | | | | | [phone] | | | | | | | | +--------+ + + + + | 06/16/ | Office | Pulmonology | Eveline Jaffe | | | 2019 | Visit | | MD Raul [address] | | | | | | [address] | | | | | | [place] [address] | | | | | | [phone] | | | | | | | | +--------+ + + + + | 08/24/ | Office | Cardiology | Anisha Lopez DO | | | 2019 | Visit | | [address] | | | | | | [place] | | | | | | [id number] | | | | | | | | +--------+ + + + + documented as of this encounter Visit Diagnoses Not on filedocumented in this encounter"
--- OUTSIDE RECORDS SUMMARY | ~2019-05-05 | XMS | Encounter Summary ---
Demographics + + + | Address | [address] | | | [place] [address] | + + + | Home Phone [...] [place] | | | | | [address] | | + + + + + Care Team Providers + +------+ + | Care Agency Manager Name | Role | Phone | [...] W | | | | | | [place], | | | | | | [place] [address] | | | | | | [phone] | | | +--------+ + + + [...] Jacques OT - [facility]/07[facility]2014 1[facility] [address] [place] [address] Oncology Rehab Screening Date: 08/07/2014 Patient Information [...] participating in therapy services in [facility], however, it is this therapist's opinion at [...] | | | | | [place] [address] | | | | | | [phone] | | | | | | | | +--------+ + + + + | 06/08/ | Office | Physical Medicine | Rocky Santos, | | | 2019 | Visit | and Rehabilitation | MD [address] | | | | | | [place] | | | | | | [address] | | | | | | | | +--------+ + + + + | 06/16/ | Appointment | Pulmonology | Eveline Jaffe | | 2019 | | | MD [address] | | | | | | [address] | | | | | | [place] [address] | | | | | | [phone] | | | | | | | | +--------+ + + + + | 06/16/ | Office | Pulmonology | Eveline Jaffe | | | 2019 | Visit | | MD Raul [address] | | | | | | [address] | | | | | | [place] [address] | | | | | | [phone] | | | | | | | | +--------+ + + + + | 08/24/ | Office | Cardiology | Anisha Lopez DO | | | 2019 | Visit | | [address] | | | | | | [place] | | | | | | [address] | | | | | | | | +--------+ + + + + documented as of this encounter Visit Diagnoses Not on filedocumented in this encounter"
--- OUTSIDE RECORDS SUMMARY | ~2019-05-05 | XMS | Encounter Summary ---
Demographics + + + | Address | [address] | | | [place] [address] | + + + | Home Phone [...] [place] | | | | | [address] | | + + + + + Care Team Providers + +------+ + | Care Retail Chain Store Area Supervisor Name | Role | Phone | [...] | Services | Therapy | Bilateral | [facility] | [facility] | | | Required | | shoulder | Matthias, | [address] | | | | | pain, | MD [address] | | | | | unspecified | [address] | [place], [place] | | | | | chronicity | [place], | [address] | | | | | | [place] | Phone: | | | | | | [address] | [phone] | | | | | | Phone: | Fax: | | | | | | [phone] | [phone] | | | | | | Fax: | | | | | | | [phone] | | +--------+ + + + + [...] | | | | shoulder | [place] [address] | [place] | | | | | | Phone: | [address] | | | | | | [phone] | Phone: | | | | | | Fax: | [phone] | | | | | | [phone] | Fax: | | | | | | | [phone] | + +--------+ + + + + Encounter Details +--------+---------+ + + + | Date | Type | Department | Care Team | Description | +--------+---------+ + + + | 11/01/ | Office | [facility] | Rodney Worthy | Bilateral shoulder | | 2019 | Visit | ORTHOPEDIC SURGERY | MD [address] | pain, unspecified | | | | [address] [facility] | [facility] | chronicity (Primary | | | | [place], [place] | [place] [address] | Dx); Impingement | | | | [address] | [phone] | syndrome of left | | | | [phone] | | shoulder; | | | | [...] Medicine To relieve pain and inflammation, try jopr-rgo-rsnkowf pain relievers, such as acetaminophe n or [...] benefits of this therapy. Date Last Reviewed: 09/29/201719992694-6820 [employer] [address] [place] [address], [place] [address]. All righ ts reserved. This information is not intended as a substitute for professional medical care. Always follow your healthcare professional's instructions. documented in this encounter Progress Notes Rodney Worthy MD - 11/01/2018 11:00 AM PDTFormatting of this note might be dif ferent from the original. [facility] HISTORY AND PHYSICAL EXAMINATION [...] her by the emergenc y room at [facility] in [place]. She reports that using her shoulder makes [...] disease Arthritis COPD (chronic obstructive pulmonary disease) ([facility]) on albuterol Depression HONG (dyspnea on exertion) Full dentures upper & lower GERD (gastroesophageal reflux disease) Hyperlipidemia on simvastatin Hypertension on clonidine and lisinopril Hypothyroidism Obesity MARCE (obstructive sleep apnea) AHI 11.6 no CPAP Osteoporosis Pneumonia 2008 hospitalized 5 days Recurrent squamous cell carcinoma of lung ([facility]) 07/11/[address] and RUL nodule Rheumatoid arthritis(714.0) [facility] Spinal stenosis has tried cortisone injections Spondylolisthesis of cervical region Sputum culture positive for Scopulariopsis species Squamous cell carcinoma of lung ([facility]) 07/2013 right lower lobe Stroke ([facility]) 2006 Stroke ([facility]) 2007 Upper GI bleed 06/[address] [facility] Past Surgical History: Procedure Laterality Date BACK SURGERY 03/2014 BLADDER SUSPENSION BRONCHOSCOPY 07/11/2014 EBUS with right hilar LN biopsy, [facility] Dr. Sierra CERVICAL SPINE SURGERY 2012 CHOLECYSTECTOMY COLONOSCOPY 06/2014 ENDOSCOPY HAND ARTHROPLASTY Left 03/20/2015 Procedure: Left 1st C.M.C. 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 I appreciate [...] W | | | | | | [facility] | | | | | | [place] [address] | | | | | | [phone] | | | | | | | | +--------+ + + + + | 06/08/ | Office | Physical Medicine | Rocky Santos, | | | 2019 | Visit | and Rehabilitation | [address] | | | | | | [place] | | | | | | [address] | | | | | | | | +--------+ + + + + | 06/16/ | Appointment | Pulmonology | Eveline Jaffe | | | 2019 | | | MD [address] | | | | | | [address] [place] | | | | | | [place] [address] | | | | | | [phone] | | | | | | | | +--------+ + + + + | 06/16/ | Office | Pulmonology | Eveline Jaffe | | | 2019 | Visit | | MD [address] | | | | | | [address] [place] | | | | | | [place] [address] | | | | | | [phone] | | | | | | | | +--------+ + + + + | 08/24/ | Office | Cardiology | Anisha Lopez DO | | | 2019 | Visit | | [address] | | | | | | [place] | | | | | | [address] | | | | | | | [...]
--- OUTSIDE RECORDS SUMMARY | ~2019-05-05 | XMS | Encounter Summary ---
Demographics + + + | Address | [address] | | | [place] [address] | + + + | Home Phone [...] [place] | | | | | [address] | | + + + + + Care Team Providers + +------+ + | Care Woolen Suiting Shrinker Name | Role | Phone | + [...] + + | 10/22/ | Office | [facility] | Giuliano Padilla, | Hyperlipidemia, | | 2018 | Visit | ORTHOPEDIC SURGERY | MD Germania ZAPATA | unspecified | | | | [address] [facility] | [place] | hyperlipidemia type | | | | [place] | [address] | (Primary Dx); | | | | [address] | | Hypertension, | | | | [phone] | | unspecified type; Hx | | [...] | | | | | [place] [address] | | | | | | [phone] | | | | | | | | +--------+ + + + + | 06/08/ | Office | Physical Medicine | Rocky Santos, | | | 2019 | Visit | and Rehabilitation | [address] | | | | | | [place] | | | | | | [id number] | | | | | | | | +--------+ + + + + | 06/16/ | Appointment | Pulmonology | Eveline Jaffe | | | 2019 | | | MD Nichole Carter | | | | | | [address] [place] | | | | | | [place], [place] [address] | | | | | | [phone] | | | | | | | | +--------+ + + + + | 06/16/ | Office | Pulmonology | Eveline Jaffe | | | 2019 | Visit | | MD Nichole Carter | | | | | | [address] [place] | | | | | | [place] [address] | | | | | | [phone] | | | | | | | | +--------+ + + + + | 08/24/ | Office | Cardiology | Anisha Lopez DO | | | 2019 | Visit | | [address] | | | | | | [place] | | | | | | [address] | | | | | | | [...] | | | | g/dL | [facility] | | | | | [...] [address] | [place] | [phone] | | [facility] | | [address] | | | - LABORATORY | | [...] mL/min/1.73m2 | [facility] | | | [place] | RATE,ESTIMATED | | MEDICAL | | | | mL/min/1.57a8Atfz than | | CENTER - | | [...] + | [facility] | [address] | [place] | [phone] | | [facility] | | [address] | | | - LABORATORY | | [...] [address] | [place] | [phone] | | [facility] | | [address] | | | - LABORATORY | | [...] | | | | DIANA SMART MD ([id number]) | | | | | | on [...]
--- OUTSIDE RECORDS SUMMARY | ~2019-05-05 | XMS | Encounter Summary ---
Demographics + + + | Address | [address] | | | [place] [address] | + + + | Home Phone [...] [place] | | | | | [address] | | + + + + + Care Team Providers + +------+ + | Care Clinical Nursing Coordinator Name | Role | Phone | [...] [place] | | | | | | [address] | | | | | | [phone] | | | +--------+ + + + [...] | | | | | [place] [address] | | | | | | [phone] | | | | | | | | +--------+ + + + + | 06/08/ | Office | Physical Medicine | Rocky Santos, | | | 2019 | Visit | and Rehabilitation | MD [address] | | | | | | [place] | | | | | | [address] | | | | | | | | +--------+ + + + + | 06/16/ | Appointment | Pulmonology | Eveline Jaffe | | | 2019 | | | MD Nichole Carter [address] | | | | | | [address] [place] | | | | | | [place] [address] | | | | | | [phone] | | | | | | | | +--------+ + + + + | 06/16/ | Office | Pulmonology | Eveline Jaffe | | | 2019 | Visit | | MD Nichole Carter | | | | | | [address] | | | | | | [place] [address] | | | | | | [phone] | | | | | | | | +--------+ + + + + | 08/24/ | Office | Cardiology | Anisha Lopez DO | | | 2019 | Visit | | [address] | | | | | | [place] | | | | | | [phone] | | | | | | | | +--------+ + + + + documented as of this encounter Visit Diagnoses Not on filedocumented in this encounter"
--- OUTSIDE RECORDS SUMMARY | ~2019-05-05 | XMS | Encounter Summary ---
Demographics + + + | Address | [address] | | | [place] [address] | + + + | Home Phone [...] [place] | | | | | [address] | | + + + + + Care Team Providers + +------+ + | Care Treating And Pumping Supervisor Name | Role | Phone | [...] | Bilateral | Offenstein, | [address] | | | | | leg edema | Ayana B, | [place], | | | | | Procedures | MD [address] | [place] | | | | | ECHO | [address] | [address] | | | | | Complete | [place], | Phone: | | | | | | [place] [address] | [phone] | | | | | | | Fax: | | | | | | | [phone] | +--------+--------+ + + + + Diagnostic/Screening [...] | | Pneumonia, | Offenstein, | [address] | | | | | unspecified | Ayana B, | [place], | | | | | organism | MD [address] | [place] [address] | | | | | Malignant | [address] | Phone: | | | | | neoplasm of | [place], | [phone] | | | | | unspecified | [place] [address] | Fax: | | | | | part of | | [phone] | | | | | right | [...] + + | 11/06/ | Office | [facility] | Offenstein, | Chronic obstructive | | 2016 | Visit | PULMONARY [address] | Ayana Looney MD | bronchitis with | | | | [address] [place], | | pulmonary emphysema | | | | [place] [address] | | (HCC) (Primary Dx); | | | | [phone] | | Recurrent pneumonia; | | | | | | Oropharyngeal | | | | | | dysphagia; Bilateral | | | | | | leg edema; | | | | | | Recurrent squamous | | | | | | cell carcinoma of | | | | | | lung, right ([facility]) | +--------+---------+ + + + Social History [...] w ent in to the ER at [facility] and was admitted. They had intended to keep her, but appar ently then ended up transferring her to [place]. She was 100.8 on arrival in the emergenc y room at [facility]. She was treated with Zosyn and she [...] [facility] [place]) [facility]ate[facility] [...] 07/11/2014 EBUS with right hilar LN biopsy, [facility] Dr. Sierra Tunneled venous port placement N/A 07/28/2014 Procedure: Port Placement; Surgeon: Chalino Chiu MD; Location: [facility] MAIN OR Colonoscopy 06/2014 Endoscopy Hand arthroplasty Left 03/20/2015 Procedure: Left 1st C.M.C. 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 Blood Pressure Monitoring (BLOOD PRESSURE CUFF) [facility] Please provide patient with approp [...] made to ensure accuracy; however, inadvertent computerized radiopharmacist errors may be pre sent. documented in [...] | | | | | [place] [address] | | | | | | [phone] | | | | | | | | +--------+ + + + + | 06/08/ | Office | Physical Medicine | Rocky Santos, | | | 2019 | Visit | and Rehabilitation | [address] | | | | | | [place] | | | | | | [address] | | | | | | | | +--------+ + + + + | 06/16/ | Appointment | Pulmonology | Eveline Jaffe | | | 2019 | | | MD Nichole Carter [address] | | | | | | [address] [place] | | | | | | [place] [address] | | | | | | [phone] | | | | | | | | +--------+ + + + + | 06/16/ | Office | Pulmonology | Eveline Jaffe | | | 2019 | Visit | | MD Nichole Carter | | | | | | [address] [place] | | | | | | [place] [address] | | | | | | [phone] | | | | | | | | +--------+ + + + + | 08/24/ | Office | Cardiology | Anisha Lopez DO | | | 2019 | Visit | | [address] | | | | | | [place] | | | | | | [address] | | | | | | | [...] COMPARISON: ESOPHAGRAM SEPTEMBER 2014 TECHNIQUE: In the [facility] | | upright position, the patient [...] + | [facility] | [address] | [place] | [phone] | | [facility] | | [address] | | | - IMAGING | | | | + + + + + ECHO Complete (11/30/2015 10:34 AM PDT) + + | Specimen | + + | | + + + +- + | Narrative | Performed At | + +- + | Transthoracic | [facility] | | Echocardiography Report (TTE) Demographics Patient Name GRISELDA | [facility] | | [facility] Room Number YOLANDA Patient | [facility] | | Number [id number] Date of Study 11/30/2015 | - IMAGING | | Visit Number [id number] | | | Referring Physician OUSMANE LANG Number | | | B Date of | | | 1945 Automotive Warranty Administrator HOLLEY ESTUARDO | | | | | | RDS Age 70 year(s) | | | Interpreting NOMAN HAIDER | | | Hourly Caregiver LUIS | | | | | | [...] Room Number YOLANDA | | Patient Number [id number] Date of Study 11/30/2015 Visit Number | | [id number] Referring Physician OUSMANE LANG | | Number B Date of 1945 | | Automotive Warranty Administrator HOLLEY MARTE | | RDS Age 70 year(s) Interpreting NOMAN HAIDER | | Hourly Caregiver LUIS | | LUIS TINEO MD Gender [...] [address] | [place] | [phone] | | [facility] | | [address] | | | - IMAGING | | [...] ST. | [address] | [place], [place] | [phone] | | [facility] | | [address] | | | - IMAGING | | [...]
--- OUTSIDE RECORDS SUMMARY | ~2019-05-05 | XMS | Encounter Summary ---
Demographics + + + | Address | [address] | | | [place] [address] | + + + | Home Phone [...] [place] | | | | | [address] | | + + + + + Care Team Providers + +------+ + | Care Collating Machine Operator Name | Role | Phone [...] + + | 09/11/ | Hospital | [facility] | Adelita Lu MD | Recurrent squamous | | 2015 | Encounter | MED CTR CHEMO | [address] | cell carcinoma of | | | | INFUSION [address] | [place], [place] | lung, right (HCC) | | | | [place], | [address] | (Primary Dx) | | | | [place] [address] | [phone] | | | | | [phone] | | | +--------+ + + + [...] | | | | | [place] [address] | | | | | | [phone] | | | | | | | | +--------+ + + + + | 06/08/ | Office | Physical Medicine | Rocky Santos, | | | 2019 | Visit | and Rehabilitation | MD Nichole Hind[address] | | | | | | [place] | | | | | | [address] | | | | | | | | +--------+ + + + + | 06/16/ | Appointment | Pulmonology | Eveline Jaffe | | | 2019 | | | MD Nichole Carter | | | | | | [address] [place] | | | | | | [place] [address] | | | | | | [phone] | | | | | | | | +--------+ + + + + | 06/16/ | Office | Pulmonology | Eveline Jaffe | | | 2019 | Visit | | MD Nichole Carter | | | | | | [address] [place] | | | | | | [place] [address] | | | | | | [phone] | | | | | | | | +--------+ + + + + | 08/24/ | Office | Cardiology | Anisha Lopez DO | | | 2019 | Visit | | [address] | | | | | | [place] | | | | | | [address] | | | | | | | | +--------+ + + + + documented as of this encounter Visit Diagnoses + + | Diagnosis | + + | Recurrent squamous cell carcinoma of lung, right (HCC) - Primary | + + documented in this encounter"
--- OUTSIDE RECORDS SUMMARY | ~2019-05-05 | XMS | Encounter Summary ---
Demographics + + + | Address | [address] | | | [place] [address] | + + + | Home Phone [...] [place] | | | | | [address] | | + + + + + Care Team Providers + +------+ + | Care Human Resource Advisor Name | Role | Phone | + +------+ + | Davis Ivan MD | PCP | | + +------+ + Encounter Details +--------+ + + + + | Date | Type | Department | Care Team | Description | +--------+ + + + + | 10/22/ | Hospital | [facility] | Giuliano Padilla, | Hyperlipidemia, | | 2018 | Encounter | MED CTR LORAINE XRAY | MD Germania BARON | unspecified | | | | [address] [place] | [place], [place] | hyperlipidemia type; | | | | [place], [place] | [address] | Hypertension, | | | | [address] | | unspecified type; Hx | | | | [phone] | | of pulmonary | | | [...] | | | | type ([facility]) | | | | | [...] | | | | | [place] [address] | | | | | | [phone] | | | | | | | | +--------+ + + + + | 06/08/ | Office | Physical Medicine | Rocky Santos, | | | 2019 | Visit | and Rehabilitation | MD Nichole Landis | | | | | | [place] | | | | | | [address] | | | | | | | | +--------+ + + + + | 06/16/ | Appointment | Pulmonology | Eveline Jaffe | | 2019 | | | MD Nichole Carter | | | | | | [address] [place] | | | | | | [place] [address] | | | | | | [phone] | | | | | | | | +--------+ + + + + | 06/16/ | Office | Pulmonology | Eveline Jaffe | | | 2019 | Visit | | MD Raul [address] | | | | | | [address] [place] | | | | | | [place] [address] | | | | | | [phone] | | | | | | | | +--------+ + + + + | 08/24/ | Office | Cardiology | Anisha Lopez DO | | | 2019 | Visit | | [address] | | | | | | [place] | | | | | | [address] | | | | | | | [...]
--- OUTSIDE RECORDS SUMMARY | ~2019-05-05 | XMS | Encounter Summary ---
Demographics + + + | Address | [address] | | | [place] [address] | + + + | Home Phone [...] [place] | | | | | [address] | | + + + + + Care Team Providers + +------+ + | Care Spanish Lecturer Name | Role | Phone | [...] + + | 12/06/ | Telephone | [facility] | Giuliano Padilla, | Other | | 2018 | | ORTHOPEDIC SURGERY | [address] [facility] | | | | | [address] [facility] | [place], [place] | | | | | [place], [place] | [address] | | | | | [address] | | | | | | [phone] | | | +--------+ + + + [...] | | | | | [place] [address] | | | | | | [phone] | | | | | | | | +--------+ + + + + | 06/08/ | Office | Physical Medicine | Rocky Santos, | | | 2019 | Visit | and Rehabilitation | [address] | | | | | | [place] | | | | | | [address] | | | | | | | | +--------+ + + + + | 06/16/ | Appointment | Pulmonology | Eveline Jaffe | | | 2019 | | | MD Raul [address] | | | | | | [address] [place] | | | | | | [place] [address] | | | | | | [phone] | | | | | | | | +--------+ + + + + | 06/16/ | Office | Pulmonology | Eveline Jaffe | | | 2019 | Visit | | MD Nichole Carter [address] | | | | | | [address] [place] | | | | | | [place] [address] | | | | | | [phone] | | | | | | | | +--------+ + + + + | 08/24/ | Office | Cardiology | Anisha Lopez DO | | | 2019 | Visit | | [address] | | | | | | [place] | | | | | | [address] | | | | | | | [...]
--- OUTSIDE RECORDS SUMMARY | ~2019-05-05 | XMS | Encounter Summary ---
Demographics + + + | Address | [address] | | | [place] [address] | + + + | Home Phone [...] [place] | | | | | [address] | | + + + + + Care Team Providers + +------+ + | Care Director Cardiology Name | Role | Phone | + [...] | | | | | | [place] [address] | | | | | | [phone] | | | +--------+ + + + [...] | | | | | [place] [address] | | | | | | [phone] | | | | | | | | +--------+ + + + + | 06/08/ | Office | Physical Medicine | Rocky Santos, | | | 2019 | Visit | and Rehabilitation | [address] | | | | | | [place] | | | | | | [address] | | | | | | | | +--------+ + + + + | 06/16/ | Appointment | Pulmonology | Eveline Jfafe | | 2019 | | | MD Nichole Carter [address] | | | | | | [address] [place] | | | | | | [place], [place] [address] | | | | | | [phone] | | | | | | | | +--------+ + + + + | 06/16/ | Office | Pulmonology | Eveline Jaffe | | | 2019 | Visit | | MD Nichole Carter [address] | | | | | | [address] [place] | | | | | | [place] [address] | | | | | | [phone] | | | | | | | | +--------+ + + + + | 08/24/ | Office | Cardiology | Anisha Lopez DO | | 2019 | Visit | | [address] | | | | | | [place] | | | | | | [address] | | | | | | | | +--------+ + + + + documented as of this encounter Visit Diagnoses Not on filedocumented in this encounter"
--- OUTSIDE RECORDS SUMMARY | ~2019-05-05 | XMS | Encounter Summary ---
Demographics + + + | Address | [address] | | | [place] [address] | + + + | Home Phone [...] [place] | | | | | [address] | | + + + + + Care Team Providers + +------+ + | Care Manager Critical Care Unit Name | Role | Phone [...] W | | | | | | [place], | | | | | | [place] [address] | | | | | | [phone] | | | +--------+ + + + [...] Walsh OT - [facility]2014 [facility] [address] [place] [address] Oncology Rehab Screening Date: 08/15/2014 Patient Information Patient Name: Thea Carmona Date of : 1945 Age: 69 y.o. Patient was seen for follow up visit by [place] director of rehabilitation. Patient very somnolent at time o f [...] | 2018 | Visit | | [address]I [address] | | | | | | [facility] | | | | | | [place] [address] | | | | | | [phone] | | | | | | | | +--------+ + + + + | 06/08/ | Office | Physical Medicine | Rocky Santos, | | | 2019 | Visit | and Rehabilitation | MD Vare[address] | | | | | | [place] | | | | | | [address] | | | | | | | | +--------+ + + + + | 06/16/ | Appointment | Pulmonology | Eveline Jaffe | | | 2019 | | | MD Nichole Carter [address] | | | | | | [address] [place] | | | | | | [place] [address] | | | | | | [phone] | | | | | | | | +--------+ + + + + | 06/16/ | Office | Pulmonology | Eveline Jaffe | | | 2019 | Visit | | MD Nichole Carter [address] | | | | | | [address] [place] | | | | | | [place] [address] | | | | | | [phone] | | | | | | | | +--------+ + + + + | 08/24/ | Office | Cardiology | Anisha Lopez DO | | | 2020 | Visit | | [address] | | | | | | [place] | | | | | | [address] | | | | | | | | +--------+ + + + + documented as of this encounter Visit Diagnoses Not on filedocumented in this encounter"
--- OUTSIDE RECORDS SUMMARY | ~2019-05-05 | XMS | Encounter Summary ---
Demographics + + + | Address | [address] | | | [place] [address] | + + + | Home Phone [...] [place] | | | | | [address] | | + + + + + Care Team Providers + +------+ + | Care Heart Nurse Name | Role | Phone | [...] + + | 08/15/ | Hospital | [facility] | Adelita Lu MD | 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 | | | | [address] | [place], [place] | lung, unspecified | | | | [place], | [address] | laterality (HCC); | | | | [place] [address] | [phone] | Pulmonary nodules | | | | [phone] | | | +--------+ + + + [...] | | | | | [place] [address] | | | | | | [phone] | | | | | | | | +--------+ + + + + | 06/08/ | Office | Physical Medicine | Rocky Santos, | | | 2019 | Visit | and Rehabilitation | MD [address] | | | | | | [place] | | | | | | [address] | | | | | | | | +--------+ + + + + | 06/16/ | Appointment | Pulmonology | Eveline Jaffe | | 2019 | | | MD Nichole Carter | | | | | | [address] | | | | | | [place] [address] | | | | | | [phone] | | | | | | | | +--------+ + + + + | 06/16/ | Office | Pulmonology | Eveline Jaffe | | | 2019 | Visit | | MD Raul [address] | | | | | | [address] | | | | | | [place] [address] | | | | | | [phone] | | | | | | | | +--------+ + + + + | 08/24/ | Office | Cardiology | Anisha Lopez DO | | | 2019 | Visit | | [address] | | | | | | [place] | | | | | | [address] | | | | | | | [...] [address] | [place] | [phone] | | [facility] | | [address] | | | - LABORATORY | | | | + + + + + | [facility] | [address] | [place] | | | [facility] | | [address] | | | - LABORATORY | | [...] mL/min/1.73m2 | [facility] | | | [place] [place] | RATE,ESTIMATED | | MEDICAL | | | | mL/min/1.41d8Byuc than | | CENTER - | | [...] | 8.6 | 8.3 - 10.5 | [facility] | | | | | mg/dL | [facility] | | | | | | MEDICAL | | | | | | CENTER - | | | | | | LABORATORY | | + + + + + + | Albumin | 3.0 (L) | 3.2 - 5.0 g/dL | [facility] | | | | | | ST. [...] | ine Ratio | | | [facility] | | | | | | MEDICAL | | | | | | CENTER - | | | | | | LABORATORY | | + + + + + + + + | Specimen | + + | Blood | + + + + + + + | Performing | Address | City/State/[facility] | Phone Number | | Organization | | | | + + + + + | [facility] | [address] | [place] | [phone] | | [facility] | | [address] | | | - LABORATORY | | | | + + + + + | [facility] | [address] | [place] | | | [facility] | | [address] | | | - LABORATORY | | [...]
--- OUTSIDE RECORDS SUMMARY | ~2019-05-05 | XMS | Encounter Summary ---
Demographics + + + | Address | [address] | | | [place] [address] | + + + | Home Phone [...] [place] | | | | | [address] | | + + + + + Care Team Providers + +------+ + | Care Business Analytics Intern Name | Role | Phone | + +------+ + | Davis Gilbert MD | PCP | | + +------+ + Encounter Details +--------+ + + + + | Date | Type | Department | Care Team | Description | +--------+ + + + + | 04/06/ | Hospital | [facility] | Silviano Cabrera MD | | | 2012 - | Encounter | [facility] | [address] | | | | | [place] | [place], | | | 04/09/ | | [place], [place] | [place] [address] | | | 2012 | | [address] | [phone] | | | | | [phone] | | | +--------+ + + + [...] 04/09/1350 Date of Service: 04/09/13847 Status: Signed Dry Talc Racker: RITA Rubio (Advanced Registered Nurse Practitioner) St. [...] 1331 Date of Service: 04/09/131329 Status: Signed Dry Talc Racker: Matilde Turner RN (Registered Nurse) Discharge teaching [...] (none) Author Type: Physical Therapist Filed: 04/09/13 0350 Date of Service: 04/09/13 1023 Status: Signed Dry Talc Racker: Tamiko Murphy PT (Physical Therapist) 04/09/13 1023 [...] 154 Date of Service: 04/08/131540 Status: Signed Dry Talc Racker: BLAIR Chang (Occupational Therapist) 04/08/13 0927 Precautions [...] stated understanding . Prior Function Level of [place] Modified independent with ADLs;Assist with IADLs;Modified independent [...] Notes by Nathalie Yang PT at 04/08/13 1035 Author: Nathalie Yang PT Service: (none) Author Type: Physical Therapist Filed: 04/08/13 4421 Date of Service: 04/08/13 2307 Status: Signed Dry Talc Racker: Nathalie Yang PT (Physical Therapist) 04/08/13 1006 PT Last Visit PT Received On 04/08/13 [...] Denver Arias PTA Service: (none) Author Type: Pulp Maker Filed: 04/08/13 1157 Date of Service: 04/08/13 1156 Status: Signed Dry Talc Racker: Denver Arias PTA (Pulp Maker) 04/08/13 1156 PT Last Visit PT Received [...] (none) Author Type: Physical Therapist Filed: 04/07/13 8727 Date of Service: 04/07/13 1318 Status: Signed Dry Talc Racker: Jenny Vila PT (Physical Therapist) 04/07/13 1318 [...] she feels more security given limitations of Sanger collar; pt left sitting in high back [...] Author: CLAIRE Lee Service: (none) Author Type: Teletype Mechanic Filed: 04/07/13905 Date of Service: 04/07/13903 Status: Signed Dry Talc Racker: CLAIRE Lee (Teletype Mechanic) CM met with pt for discharge planning. [...] Date of Service: 04/06/13 1522 Status: Signed Dry Talc Racker: Jenny Vila PT (Physical Therapist) 04/06/13 1522 [...] pt as needed. Prior Function Level of [place] Modified independent with functional mobility;Assist with ADLs;Assist [...] Notes by Martha Dhaliwal RPH at 04/06/13 4721 Author: Martha Dhaliwal RPH Service: (none) Author Type: Pharmacist Filed: 04/06/13 0862 Date of Service: 04/06/131455 Status: Signed Dry Talc Racker: Martha Dhaliwal RPH (Pharmacist) Renal Dosing Monitoring: Thea Carmona 67 y.o. female Pharmacy dosing for renal function per Dr. Cabrera No current SCr. Plan per protocol: Unable to calculate CrCL . Pharmacy will continue monitoring patient for appropriate dosing per renal function. 04/06/2013 2:55 PM Pharmacist: Martha Dhaliwal kSinny kimball in this encounter Plan of Treatment [...] [address] | | | | | | [phone] | | | | | | | | +--------+ + + + + | 06/08/ | Office | Physical Medicine | Rocky Santos, | | | 2019 | Visit | and Rehabilitation | [address] | | | | | | [place] | | | | | | [id number] | | | | | | | | +--------+ + + + + | 06/16/ | Appointment | Pulmonology | Eveline Jaffe | | | 2019 | | | MD Nichole Carter W | | | | | | [address] | | | | | | [place], [place] [address] | | | | | | [phone] | | | | | | | | +--------+ + + + + | 06/16/ | Office | Pulmonology | Eveline Jaffe | | | 2019 | Visit | | MD Nichole Carter W | | | | | | [address] | | | | | | [place] [address] | | | | | | [phone] | | | | | | | | +--------+ + + + + | 08/24/ | Office | Cardiology | Anisha Lopez DO | | | 2019 | Visit | | [address] | | | | | | [place] | | | | | | [address] | | | | | | | [...]
--- OUTSIDE RECORDS SUMMARY | ~2019-05-05 | XMS | Encounter Summary ---
Demographics + + + | Address | [address] | | | [place] [address] | + + + | Home Phone [...] [place] | | | | | [address] | | + + + + + Care Team Providers + +------+ + | Care Semiconductor Wafers Marker Name | Role | Phone | [...] | | | | shoulder | [place] [address] | [place] | | | | | | Phone: | [phone] | | | | | | [phone] | Phone: | | | | | | Fax: | [phone] | | | | | | [phone] | Fax: | | | | | | | [phone] | + +--------+ + + + + Encounter Details +--------+---------+ + + + | Date | Type | Department | Care Team | Description | +--------+---------+ + + + | 12/30/ | Office | [facility] | Rodney Worthy | Impingement syndrome | | 2019 | Visit | ORTHOPEDIC SURGERY | MD Mat[address] | of right shoulder | | | | [address] | [facility] | (Primary Dx); | | | | [place], [place] | [place] [address] | Impingement syndrome | | | | [address] | [phone] | of left shoulder | | | | [phone] | | | +--------+---------+ + + + [...] strength Fever or chills Date Last Reviewed: 12/31/201519997611-8901 [employer]. [address] [place] [address]. All righ ts reserved. This information is not intended as a substitute for professional medical care. Always follow your healthcare professional's instructions. documented in this encounter Progress Notes Rodney Worthy MD - 12/30/2018 2:30 PM PDTFormatting of this note might be dif ferent from the original. [facility] Pt. 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 Lewis [place] Spinal stenosis has tried cortisone injections Spondylolisthesis of cervical region Sputum culture positive for Scopulariopsis species Squamous cell carcinoma of lung (HCC) 07/2013 right lower lobe Stroke (HCC) 2006 Stroke ([facility]) 2007 left sided weakness Upper GI bleed 06/2014 admitted [place] Wears dentures Past Surgical History: Procedure Laterality Date BACK SURGERY 03/2014 BLADDER SUSPENSION BRONCHOSCOPY 07/11/2014 EBUS with right hilar LN biopsy, [facility] Dr. Sierra CERVICAL SPINE SURGERY 2012 CHOLECYSTECTOMY COLONOSCOPY 06/2014 ENDOSCOPY FINGER TRIGGER RELEASE Left 12/14/2018 Procedure: Left Thumb Trigger Finger Release, Left Index Trigger Finger Release, Left Long Trigger Finger Release, Left Ring Trigger Finger Release; Surgeon: Giuliano Padilla MD; Lo cation: [facility] MAIN OR HAND ARTHROPLASTY Left 03/20/2015 Procedure: Left 1st C.M.C. Arthroplasty; Surgeon: Giuliano Padilla MD; Location: [facility] MAIN OR HAND ARTHROPLASTY Right 10/27/2017 Procedure: Right 1st CMC Arthroplasty; Surgeon: Giuliano Padilla MD; Location: [facility] MAIN O R HYSTERECTOMY LOBECTOMY 09/16/13 right lower lobe LUNG BIOPSY 07/21/13 right lower lobe SHOULDER SURGERY SHOULDER SURGERY right shoulder THUMB SURGERY TONGUE SURGERY benign per pt TUNNELED VENOUS PORT PLACEMENT N/A 07/28/2014 Procedure: Port Placement; Surgeon: Chalino Chiu MD; Location: [facility] MAIN OR Allergies: No Known Allergies [...] non-medical: Not on file Occupational History 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 Follow-up: Return in about 2 months (around 03/01/2019). with no x-ray Portions of this report were transcribed using voice recognition software. Every effort wa s made to ensure accuracy; however, inadvertent computerized clinical field specialist errors may be pre sent. I appreciate [...] | | | | | [place] [address] | | | | | | [phone] | | | | | | | | +--------+ + + + + | 06/08/ | Office | Physical Medicine | Rocky Santos, | | | 2019 | Visit | and Rehabilitation | MD Varela [address] | | | | | | [place] | | | | | | [address] | | | | | | | | +--------+ + + + + | 06/16/ | Appointment | Pulmonology | Eveline Jaffe | | | 2019 | | | MD Nichole [address] | | | | | | [address] [place] | | | | | | [place] [address] | | | | | | [phone] | | | | | | | | +--------+ + + + + | 06/16/ | Office | Pulmonology | Eveline Jaffe | | | 2019 | Visit | | MD Nichole [address] | | | | | | [address] [place] | | | | | | [place] [address] | | | | | | [phone] | | | | | | | | +--------+ + + + + | 08/24/ | Office | Cardiology | Anisha Lopez DO | | | 2019 | Visit | | [address] | | | | | | [place] | | | | | | [address] | | | | | | | [...]
--- OUTSIDE RECORDS SUMMARY | ~2019-05-05 | XMS | Encounter Summary ---
Demographics + + + | Address | [address] | | | [place] [address] | + + + | Home Phone [...] [place] | | | | | [address] | | + + + + + Care Team Providers + +------+ + | Care Power System Operator Name | Role | Phone | [...] + + | 09/01/ | Hospital | [facility] | Gurmeet Vargas | Tachypnea | | 2019 | Encounter | MED CTR XRAY [address] | MD [address] | | | | | [place] | [place] [address] [place] | | | | | [place] [address] | [place] [address] | | | | | [phone] | [phone] | | | | | | | [...] | | | | | type ([facility]) | | | | | [...] | 2018 | Visit | | [address] | | | | | | [facility] | | | | | | [place] [address] | | | | | | [phone] | | | | | | | | +--------+ + + + + | 06/08/ | Office | Physical Medicine | Rocky Santos, | | | 2019 | Visit | and Rehabilitation | MD Nichole Mario | | | | | | [place] | | | | | | [address] | | | | | | | | +--------+ + + + + | 06/16/ | Appointment | Pulmonology | Eveline Jaffe | | 2019 | | | MD Nichole Carter | | | | | | [address] | | | | | | [place] [address] | | | | | | [phone] | | | | | | | | +--------+ + + + + | 06/16/ | Office | Pulmonology | Eveline Jaffe | | 2019 | Visit | | MD Nichole Carter | | | | | | [address] | | | | | | [place] [address] | | | | | | [phone] | | | | | | | | +--------+ + + + + | 08/24/ | Office | Cardiology | Anisha Lopez DO | | | 2019 | Visit | | [address] | | | | | | [place] | | | | | | [address] | | | | | | | [...]
--- OUTSIDE RECORDS SUMMARY | ~2019-05-05 | XMS | Encounter Summary ---
Demographics + + + | Address | [address] | | | [place] [address] | + + + | Home Phone [...] [place] | | | | | [address] | | + + + + + Care Team Providers + +------+ + | Care Top Spotter Name | Role | Phone | + [...] | RN | | | | | [place], | | | | | | [place] [address] | | | | | | [phone] | | | +--------+ + + + [...] | 2018 | Visit | | [address] | | | | | | [facility] | | | | | | [place] [address] | | | | | | [phone] | | | | | | | | +--------+ + + + + | 06/08/ | Office | Physical Medicine | Rocky Santso, | | | 2019 | Visit | and Rehabilitation | MD Nichole [address] | | | | | | [place] | | | | | | [address] | | | | | | | | +--------+ + + + + | 06/16/ | Appointment | Pulmonology | Eveline Jaffe | | | 2019 | | | MD iNchole Carter | | | | | | [address] [place] | | | | | | [place] [address] | | | | | | [phone] | | | | | | | | +--------+ + + + + | 06/16/ | Office | Pulmonology | Eveline Jaffe | | | 2019 | Visit | | MD Nichole Carter | | | | | | [address] [place] | | | | | | [place] [address] | | | | | | [phone] | | | | | | | | +--------+ + + + + | 08/24/ | Office | Cardiology | Anisha Lopez DO | | | 2019 | Visit | | [address] | | | | | | [place] | | | | | | [phone] | | | | | | | | +--------+ + + + + documented as of this encounter Visit Diagnoses Not on filedocumented in this encounter"
--- OUTSIDE RECORDS SUMMARY | ~2019-05-05 | XMS | Encounter Summary ---
Demographics + + + | Address | [address] | | | [place] [address] | + + + | Home Phone [...] [place] | | | | | [address] | | + + + + + Care Team Providers + +------+ + | Care Drip Box Tender Name | Role | Phone | [...] | MED CTR MEDICAL | [address] | cell carcinoma of | | | | ONCOLOGY CLINIC [address] | [place] | lung, right (HCC) | | | | [address] [place] | [address] | (Primary Dx) | | | | [facility] [place] [address] | [phone] | | | | | [phone] | | | +--------+ + + + [...] Lu MD - 09/12/2014 9:34 AM PDT .[facility] Hem-Onc [facility] Patient name:Thea Carmona : 1945 Age: 69 y.o. CSN: [id number] Date of Service: 09/12/2014 Identifying Statement: Thea Carmona is a 69 y.o. female from [facility] with clinical stage II, non-small [...] lewis 2.CT-guided biopsy by interventional radiology at [facility] of the right lung massshows squamous cell [...] by Dr. Mace , thoracic surgeon at [facility] for consideration of broncho scopy, right thoracoscopy, [...] Date COPD (chronic obstructive pulmonary disease) ([facility]) on albuterol Spondylolisthesis of cervical region Spinal stenosis has tried cortisone injections Osteoporosis Depression Pneumonia 2009 hospitalized 5 days Rheumatoid arthritis(714.0) ([facility]) [facility] Hyperlipidemia on simvastatin Hypertension on clonidine and lisinopril Hypothyroidism GERD (gastroesophageal reflux disease) Stroke ([facility]) 2006 Stroke ([facility]) 2007 Squamous cell carcinoma of lung ([facility]) 07/2013 right lower lobe Sputum culture positive for Scopulariopsis species Recurrent squamous cell carcinoma of lung ([facility]) 07/11/[address] and RUL nodule MARCE (obstructive sleep apnea) AHI 11.6 no CPAP Full dentures upper & lower Upper GI bleed 06/2014 admitted [facility] Allergies: No Known Allergies Medications : Patient's [...] mg by mouth Daily. RESPIRATORY THERAPY SUPPLIES [facility] ResMed S9 auto CPAP 5-9 cm H2O. Heater and Humidifier . All necessary supplies. AHI 11.6. Diagnosis Code(s)327.23, also has co morbid hypertension , history of stroke. Length of Need 99 months. Please send order to [facility]. RESPIRATORY THERAPY SUPPLIES [facility] Respironics autotitrating CPAP at 5-9 cm H2O [...] 0.00-0.10 K/uL Imaging: PET/CT scan June 2014: [facility]: Necrotic right lung lesion wit h SUV [...] this chart may have been created with [employer] voice recognition software. Occasi onal wrong-word or [...] | 2018 | Visit | | [address] | | | | | | [facility] | | | | | | [place] [address] | | | | | | [phone] | | | | | | | | +--------+ + + + + | 06/08/ | Office | Physical Medicine | Rocky Santos, | | | 2019 | Visit | and Rehabilitation | MD Nichole Hind[address] | | | | | | [place] | | | | | | [address] | | | | | | | | +--------+ + + + + | 06/16/ | Appointment | Pulmonology | Eveline Jaffe | | 2019 | | | MD Nichole Carter | | | | | | [address] [place] | | | | | | [place] [address] | | | | | | [phone] | | | | | | | | +--------+ + + + + | 06/16/ | Office | Pulmonology | Eveline Jaffe | | | 2019 | Visit | | MD Nichole Carter | | | | | | [address] [place] | | | | | | [place] [address] | | | | | | [phone] | | | | | | | | +--------+ + + + + | 08/24/ | Office | Cardiology | Anisha Lopez DO | | | 2020 | Visit | | [address] | | | | | | [place] | | | | | | [address] | | | | | | | | +--------+ + + + + documented as of this encounter Visit Diagnoses + + | Diagnosis | + + | Recurrent squamous cell carcinoma of lung, right (HCC) - Primary | + + documented in this encounter"
--- OUTSIDE RECORDS SUMMARY | ~2019-05-05 | XMS | Encounter Summary ---
Demographics + + + | Address | [address] | | | [place] [address] | + + + | Home Phone [...] [place] | | | | | [address] | | + + + + + Care Team Providers + +------+ + | Care Drilling Foreman Name | Role | Phone | [...] | | | Trigger | | [place] [address] | | | | | finger, left | | Phone: | | | | | ring finger | | [phone] | | | | | Trigger | | Fax: | | | | | middle | | [phone] | | | | | finger of | | | | | | | left hand | | | | | | | Procedures | | | | | | | SD INCISE | | | | | | [...] + + | 09/28/ | Hospital | [facility] | Giuliano Padilla, | Trigger finger of | | 2018 | Encounter | MED CTR OR INTRA OP | MD [address] | left thumb; Trigger | | | | [address] | [place], [place] | finger, left ring | | | | [place] | [address] | finger; Trigger | | | | [address] | | middle finger of | | | | [phone] | | left hand | +--------+ + [...] | | | | | [place] [address] | | | | | | [phone] | | | | | | | | +--------+ + + + + | 06/08/ | Office | Physical Medicine | Rocky Santos, | | | 2019 | Visit | and Rehabilitation | MD Nichole Landis | | | | | | [place] | | | | | | [address] | | | | | | | | +--------+ + + + + | 06/16/ | Appointment | Pulmonology | Eveline Jaffe | | 2019 | | | MD Nichole [address] | | | | | | [address] [place] | | | | | | [place] [address] | | | | | | [phone] | | | | | | | | +--------+ + + + + | 06/16/ | Office | Pulmonology | Eveline Jaffe | | | 2019 | Visit | | MD Raul [address] | | | | | | [address] [place] | | | | | | [place] [address] | | | | | | [phone] | | | | | | | | +--------+ + + + + | 08/24/ | Office | Cardiology | Anisha Lopez DO | | | 2019 | Visit | | [address] | | | | | | [place] | | | | | | [address] | | | | | | | [...]
--- OUTSIDE RECORDS SUMMARY | ~2019-05-05 | XMS | Encounter Summary ---
Demographics + + + | Address | [address] | | | [place] [address] | + + + | Home Phone [...] [place] | | | | | [address] | | + + + + + Care Team Providers + +------+ + | Care Senior Grants Officer Name | Role | Phone | + +------+ + | Davis Ivan MD | PCP | | + +------+ + Encounter Details +--------+ + + + + | Date | Type | Department | Care Team | Description | +--------+ + + + + | 08/22/ | Hospital | [facility] | Adelita Lu MD | Lung cancer (HCC) | | 2014 | Encounter | MED CTR PULMONARY | [address] | | | | | [address] | [place], [place] | | | | | [place], | [address] | | | | | [place] [address] | [phone] | | | | | [phone] | | | +--------+ + + + [...] 05/30/ | Office | Rheumatology | Santosh Smuner, | | | 2018 | Visit | | [address] | | | | | | [place] | | | | | | [place] [address] | | | | | | [phone] | | | | | | | | +--------+ + + + + | 06/08/ | Office | Physical Medicine | Rocky Santos | | | 2019 | Visit | and Rehabilitation | [address] | | | | | | [place] | | | | | | [address] | | | | | | | | +--------+ + + + + | 06/16/ | Appointment | Pulmonology | Eveline Jaffe | | | 2019 | | | MD Nichole [address] | | | | | | [address] [place] | | | | | | [place] [address] | | | | | | [phone] | | | | | | | | +--------+ + + + + | 06/16/ | Office | Pulmonology | Eveline Jaffe | | 2019 | Visit | | MD Nichole [address] | | | | | | [address] [place] | | | | | | [place] [address] | | | | | | [phone] | | | | | | | | +--------+ + + + + | 08/24/ | Office | Cardiology | Anisha Lopez DO | | 2019 | Visit | | [address] | | | | | | [place] | | | | | | [address] | | | | | | | [...] signed by: Ayana Taylor MD 09/01/2013 6:07 [facility] | | | [facility] CC: Davis Ivan | | | | [...] Ayana Taylor MD 09/01/2013 6:07[facility] | | [facility] Davis Ivan | |[facility] | | | |CC: Davis Ivan [...]
--- OUTSIDE RECORDS SUMMARY | ~2019-05-05 | XMS | Encounter Summary ---
Demographics + + + | Address | [address] | | | [place] [address] | + + + | Home Phone [...] [place] | | | | | [address] | | + + + + + Care Team Providers + +------+ + | Care Refrigeration Plant Operator Name | Role | Phone [...] [place] | | | | | [phone] | [place] [address] | | +--------+ + + + + [...] | | | | | [place] [address] | | | | | | [phone] | | | | | | | | +--------+ + + + + | 06/08/ | Office | Physical Medicine | Rocky Santos, | | | 2019 | Visit | and Rehabilitation | MD [address] | | | | | | [place] | | | | | | [address] | | | | | | | | +--------+ + + + + | 06/16/ | Appointment | Pulmonology | Eveline Jaffe | | 2019 | | | MD [address]ole [address] | | | | | | [place] | | | | | | [place] [address] | | | | | | [phone] | | | | | | | | +--------+ + + + + | 06/16/ | Office | Pulmonology | Eveline Jaffe | | | 2019 | Visit | | MD Raul [address] | | | | | | [place] | | | | | | [place] [address] | | | | | | [phone] | | | | | | | | +--------+ + + + + | 08/24/ | Office | Cardiology | Anisha Lopez DO | | | 2019 | Visit | | [address] | | | | | | [place] | | | | | | [address] | | | | | | | [...]
--- OUTSIDE RECORDS SUMMARY | ~2019-05-05 | XMS | Encounter Summary ---
Demographics + + + | Address | [address] | | | [place] [address] | + + + | Home Phone [...] [place] | | | | | [address] | | + + + + + Care Team Providers + +------+ + | Care Director Chemistry Name | Role | Phone | + [...] + + | 01/20/ | Office | [facility] | Alfredenstein, | COPD (chronic | | 2013 | Visit | PULMONARY [address] | Ayana Looney MD | obstructive | | | | [place], | | pulmonary disease) | | | | [place] [address] | | (Primary Dx); MARCE | | | | [phone] | | (obstructive sleep | | | [...] exercising regularly. They are looking in to occupational therapist apy, such as water therapy. She does [...] CENTER) on prednisone and methotrexate, Dr. 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 Respiratory Therapy Supplies [facility] Respironics autotitrating CPAP at 5-9 cm H2O for life time. Mask, headgear, chin strap, hoses, humidifier chamber and filters. Dx: 327.23 1 each 0 Respiratory Therapy Supplies [employer] ResMed S9 auto CPAP 5-9 cm H2O. [...] made to ensure accuracy; however, inadvertent computerized brick extruder operator errors may be pre sent. Electronically signed [...] | | | | | [place] [address] | | | | | | [phone] | | | | | | | | +--------+ + + + + | 06/08/ | Office | Physical Medicine | Rocky Santos, | | | 2019 | Visit | and Rehabilitation | [address] | | | | | | [place] | | | | | | [address] | | | | | | | | +--------+ + + + + | 06/16/ | Appointment | Pulmonology | Eveline Jaffe | | | 2019 | | | MD Nichole [address] | | | | | | [address] [place] | | | | | | [place] [address] | | | | | | [phone] | | | | | | | | +--------+ + + + + | 06/16/ | Office | Pulmonology | Eveline Jaffe | | | 2019 | Visit | | MD Nichole [address] | | | | | | [address] [place] | | | | | | [place] [address] | | | | | | [phone] | | | | | | | | +--------+ + + + + | 08/24/ | Office | Cardiology | Anisha Lopez DO | | | 2019 | Visit | | [address] | | | | | | [place] | | | | | | [address] | | | | | | | [...] | | Ayana Taylor MD 02/09/2014 9:00 [facility] CC: Davis Ivan | | + + [...] Ayana Taylor MD 02/09/2014 | [facility] Davis Ivan | |[facility] | | | |CC: Davis Ivan [...]
--- OUTSIDE RECORDS SUMMARY | ~2019-05-05 | XMS | Encounter Summary ---
Demographics + + + | Address | [address] | | | [place] [address] | + + + | Home Phone [...] [place] | | | | | [address] | | + + + + + Care Team Providers + +------+ + | Care Custom Feed Corn Operator Name | Role | Phone | + +------+ + | Davis Ivan MD | PCP | | + +------+ + Encounter Details +--------+ + + + + | Date | Type | Department | Care Team | Description | +--------+ + + + + | 07/25/ | Hospital | [facility] | Jimmy Banegas DO | Malignant neoplasm | | 2015 | Encounter | MED CTR MEDICAL | [address] | of right lung, | | | | ONCOLOGY CLINIC [address] | [place], [place] | unspecified part of | | | | [address] | [address] | lung (HCC) (Primary | | | | [place] [address] | | Dx) | | | | [phone] | | | +--------+ + + + [...] | | | | | [place] [address] | | | | | | [phone] | | | | | | | | +--------+ + + + + | 06/08/ | Office | Physical Medicine | Rocky Santos, | | | 2019 | Visit | and Rehabilitation | MD [address] | | | | | | [place] | | | | | | [address] | | | | | | | | +--------+ + + + + | 06/16/ | Appointment | Pulmonology | Eveline Jaffe | | 2019 | | | MD [address] | | | | | | [address] [place] | | | | | | [place] [address] | | | | | | [phone] | | | | | | | | +--------+ + + + + | 06/16/ | Office | Pulmonology | Eveline Jaffe | | | 2019 | Visit | | MD [address]ole [address] | | | | | | [address] [place] | | | | | | [place] [address] | | | | | | [phone] | | | | | | | | +--------+ + + + + | 08/24/ | Office | Cardiology | Anisha Lopez DO | | 2019 | Visit | | [address] | | | | | | [place] | | | | | | [address] | | | | | | | | +--------+ + + + + documented as of this encounter Visit Diagnoses + + | Diagnosis | + + | Malignant neoplasm of right lung, unspecified part of lung (HCC) - Primary | + + documented in this encounter"
--- OUTSIDE RECORDS SUMMARY | ~2019-05-05 | XMS | Encounter Summary ---
Demographics + + + | Address | [address] | | | [place] [address] | + + + | Home Phone [...] [place] | | | | | [address] | | + + + + + Care Team Providers + +------+ + | Care Primary Care Coordinator Name | Role | Phone | [...] + | 10/07/ | Telephone | [facility] | Jf Bahena, | Hospital Follow-up | | 2015 | | [facility] | [facility] [address] | | | | | [address] [place] | [place], [place] | | | | | [place] [address] | [address] | | | | | [phone] | | | +--------+ + + + [...] | 2018 | Visit | | [address] | | | | | | [facility] | | | | | | [place] [address] | | | | | | [phone] | | | | | | | | +--------+ + + + + | 06/08/ | Office | Physical Medicine | Rocky Santos, | | | 2019 | Visit | and Rehabilitation | [address] | | | | | | [place] | | | | | | [address] | | | | | | | | +--------+ + + + + | 06/16/ | Appointment | Pulmonology | Eveline Jaffe | | | 2019 | | | MD Nichole Carter | | | | | | [address] [place] | | | | | | [place] [address] | | | | | | [phone] | | | | | | | | +--------+ + + + + | 06/16/ | Office | Pulmonology | Eveline Jaffe | | | 2019 | Visit | | MD Nichole Carter | | | | | | [address] [place] | | | | | | [place] [address] | | | | | | [phone] | | | | | | | | +--------+ + + + + | 08/24/ | Office | Cardiology | Anisha Lopez DO | | | 2019 | Visit | | [address] | | | | | | [place] | | | | | | [address] | | | | | | | | +--------+ + + + + documented as of this encounter Visit Diagnoses Not on filedocumented in this encounter"
--- OUTSIDE RECORDS SUMMARY | ~2019-05-05 | XMS | Encounter Summary ---
Demographics + + + | Address | [address] | | | [place] [address] | + + + | Home Phone [...] [place] | | | | | [address] | | + + + + + Care Team Providers + +------+ + | Care Live Study Manager Name | Role | Phone | [...] | | | | | [address] | [address] [place], [place] | | | | | [place], [place] | [address] | | | | | [address] | | | | | | [phone] | | | +--------+ + + + [...] +----+---+ + + | | 1 | [place] | | | | 6 | 43-degrees | | | | 3 | | | | | 1 | | | +----+---+ + + | | 1 | [place] off | | | | 6 | [...] | 2018 | Visit | | [address] | | | | | | [facility] | | | | | | [place] [address] | | | | | | [phone] | | | | | | | | +--------+ + + + + | 06/08/ | Office | Physical Medicine | Rocky Santos, | | | 2019 | Visit | and Rehabilitation | MD Vare[address] | | | | | | [place] | | | | | | [address] | | | | | | | | +--------+ + + + + | 06/16/ | Appointment | Pulmonology | Eveline Jaffe | | | 2019 | | | MD [address] | | | | | | [address] [place] | | | | | | [place] [address] | | | | | | [phone] | | | | | | | | +--------+ + + + + | 06/16/ | Office | Pulmonology | Eveline Jaffe | | | 2019 | Visit | | MD [address] | | | | | | [address] [place] | | | | | | [place] [address] | | | | | | [phone] | | | | | | | | +--------+ + + + + | 08/24/ | Office | Cardiology | Anisha Lopez DO | | | 2019 | Visit | | [address] | | | | | | [place] | | | | | | [address] | | | | | | | [...]
--- OUTSIDE RECORDS SUMMARY | ~2019-05-05 | XMS | Encounter Summary ---
Demographics + + + | Address | [address] | | | [place] [address] | + + + | Home Phone [...] [place] | | | | | [address] | | + + + + + Care Team Providers + +------+ + | Care Sql Data Architect Name | Role | Phone | [...] + + | 09/06/ | Hospital | [facility] | Adelita Lu MD | 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 | Encounter | MED CTR CHEMO | [address] | carcinoma of lung, | | | | INFUSION [address] | [place], [place] | stage I, unspecified | | | | [place], | [address] | laterality (HCC) | | | | [place] [address] | [phone] | (Primary Dx); | | | | [phone] | | Recurrent squamous | | | [...] | 2018 | Visit | | [address] | | | | | | [place] | | | | | | [place] [address] | | | | | | [phone] | | | | | | | | +--------+ + + + + | 06/08/ | Office | Physical Medicine | Rocky Santos, | | | 2019 | Visit | and Rehabilitation | MD [address] | | | | | | [place] | | | | | | [address] | | | | | | | | +--------+ + + + + | 06/16/ | Appointment | Pulmonology | Eveline Jaffe | | | 2019 | | | MD [address] | | | | | | [address] [place] | | | | | | [place] [address] | | | | | | [phone] | | | | | | | | +--------+ + + + + | 06/16/ | Office | Pulmonology | Eveline Jaffe | | | 2019 | Visit | | MD [address] | | | | | | [address] [place] | | | | | | [place] [address] | | | | | | [phone] | | | | | | | | +--------+ + + + + | 08/24/ | Office | Cardiology | Anisha Lopez DO | | | 2019 | Visit | | [address] | | | | | | [place] | | | | | | [address] | | | | | | | [...] + | [facility] | [address] | [place] | [phone] | | [facility] | | [address] | | | - LABORATORY | | [...] | | | FILTRATION | mL/min/1.73m2 | [facility] | | | VENEZUELAN | RATE,ESTIMATED | | MEDICAL | | | | mL/min/1.88d0Wgor than | | CENTER - | | [...] | | | | | mg/dL | [facility] | | | | | | MEDICAL | | | | | | CENTER - | | | | | | LABORATORY | | + + + + + + | Albumin | 2.8 (L) | 3.2 - 5.0 g/dL | [facility] | | | | | | [facility] | | | | | | MEDICAL [...] [address] | [place] | [phone] | | [facility] | | [address] | | | - LABORATORY | | [...]
--- OUTSIDE RECORDS SUMMARY | ~2019-05-05 | XMS | Encounter Summary ---
Demographics + + + | Address | [address] | | | [place] [address] | + + + | Home Phone [...] [place] | | | | | [address] | | + + + + + Care Team Providers + +------+ + | Care Ecotherapist Name | Role | Phone | + [...] | | cell | Ayana B, | [place] | | | | | carcinoma | MD [address] | [place] | | | | | lung (HCC) | [address] | [address] | | | | | Procedures | [place], | Phone: | | | | | PET CT Skull | [place] [address] | [phone] | | | | | Base To Mid | | Fax: | | | | | Thigh | | [phone] | +--------+--------+ + + + + Reason for Visit + + + | Reason | Comments | + + + | Follow-up | | + + + Encounter Details +--------+---------+ + + + | Date | Type | Department | Care Team | Description | +--------+---------+ + + + | 08/02/ | Office | [facility] | Offenstein, | Squamous cell | | 2013 | Visit | PULMONARY [address] | Ayana Looney MD | carcinoma lung (HCC) | | | | [place], | | (Primary Dx); COPD | | | | [place] [address] | | (chronic obstructive | | | | [phone] | | pulmonary disease); | | | [...] [place] [facility] Critical [facility] [address] [place], [address] [facility] Thea Carmona is a 68 y.o. female patient of Davis Ivan here today for follo w up of lung nodule. After lengthy discussion, we decided to refer her to [place] for biopsy. Biopsy was compli cated by [...] [facility] on prednisone and methotrexate, Dr. 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 documented in t his encounter Plan of Treatment +--------+ + + + + | Date | Type | Specialty | Care Team | Description | +--------+ + + + + | 05/30/ | Office | Rheumatology | Santosh Sumner, | | | 2018 | Visit | | [address] | | | | | | [facility] | | | | | | [place] [address] | | | | | | [phone] | | | | | | | | +--------+ + + + + | 06/08/ | Office | Physical Medicine | Rocky Santos, | | | 2019 | Visit | and Rehabilitation | MD [address] | | | | | | [place] | | | | | | [address] | | | | | | | | +--------+ + + + + | 06/16/ | Appointment | Pulmonology | Eveline Jaffe | | 2019 | | | MD [address] | | | | | | [address] | | | | | | [place] [address] | | | | | | [phone] | | | | | | | | +--------+ + + + + | 06/16/ | Office | Pulmonology | Eveline Jaffe | | | 2019 | Visit | | MD Raul [address] | | | | | | [address] [place] | | | | | | [place] [address] | | | | | | [phone] | | | | | | | | +--------+ + + + + | 08/24/ | Office | Cardiology | Anisha Lopez DO | | | 2019 | Visit | | [address] | | | | | | [place] | | | | | | [address] | | | | | | | [...] x 2.1 cm (CT image 56, PET [id number]). Maximum | | | SUV is 6.26, [...] cm | | (CT image 56, PET [id number]). Maximum SUV is 6.26, consistent with the [...] + | MISCELLANEOUS LAB | | | [phone] | + +---------+ + + | MISCELANIOUS LAB | | | [phone] | + +---------+ + + documented in [...]
--- OUTSIDE RECORDS SUMMARY | ~2019-05-05 | XMS | Encounter Summary ---
Demographics + + + | Address | [address] | | | [place] [address] | + + + | Home Phone [...] [place] | | | | | [address] | | + + + + + Care Team Providers + +------+ + | Care Gallery Intern Name | Role | Phone | [...] [place] | | | | | [facility] [place] | [address] | | | | | [address] | | | | | | [phone] | | | +--------+ + + + [...] | | | | | [place] [address] | | | | | | [phone] | | | | | | | | +--------+ + + + + | 06/08/ | Office | Physical Medicine | Rocky Santos, | | | 2019 | Visit | and Rehabilitation | MD [address] | | | | | | [place] | | | | | | [address] | | | | | | | | +--------+ + + + + | 06/16/ | Appointment | Pulmonology | Eveline Jaffe | | 2019 | | | MD [address] | | | | | | [address] | | | | | | [place] [address] | | | | | | [phone] | | | | | | | | +--------+ + + + + | 06/16/ | Office | Pulmonology | Eveline Jaffe | | | 2019 | Visit | | MD Raul [address] | | | | | | [address] [place] | | | | | | [place] [address] | | | | | | [phone] | | | | | | | | +--------+ + + + + | 08/24/ | Office | Cardiology | Anisha Lopez DO | | | 2019 | Visit | | [address] | | | | | | [place] | | | | | | [address] | | | | | | | [...] 0.75 m/s MV | | | Dec [place]: 2.82 m/s2 MV DecT: 228.26 ms MV E Hiren: 0.63 m/s | | | MV E/A Ratio: 0.84 E/E' Sept: 13.21 E' Lat: 0.05 m/s E' | | | Sept: 0.04 m/s RV S': 0.17 m/s Straddle Truck Operator: Authenticated | | | by: Anisha Lopez MD Report Date/Time: -- 65_[id number]_9:37:26 | | + + + + + [...] (A-L): 20.30 ml/m2LAAs A2C: | | 13.00 tf6ULLAT A-L A2C: 33.39 mlLAESV MOD A2C: 31.06 mlLALs A2C: 4.29 cmLAAs A4C: | | 13.52 tf2PTDVT A-L A4C: 34.38 mlLAESV MOD A4C: 32.42 mlLALs A4C: 4.51 cmAV | | Env.Ti: 288.28 msAV maxP.87 mmHgAV meanP.93 mmHgAV Vmax: 1.64 m/Susan | | Vmean: 1.15 m/Susan VTI: 33.33 cmAVA Vmax: 2.06 cm2AVA (VTI): 2.23 ow1BTVN Vmax: | | 0.00 cm2/m2AVAI (VTI): 0.00 cm2/m2LVOT Env.Ti: 299.59 msLVOT maxP.68 mmHgLVOT | | meanP.16 mmHgLVSI Dopp: 43.53 ml/m2LVSV Dopp: 74.45 mlLVOT Vmax: 0.95 | | m/sLVOT Vmean: 0.70 m/sLVOT VTI: 20.98 cmMV A Hiren: 0.75 m/sMV Dec [place]: 2.82 | | m/s2MV DecT: 228.26 msMV E Hiren: 0.63 m/sMV E/A Ratio: 0.84E/E' Sept: 13.21E' | | Lat: 0.05 m/sE' Sept: 0.04 m/sRV S': 0.17 m/s Straddle Truck Operator:Authenticated by: | | Anisha Lopez MDReport Date/Time: -- 05_[id number]_0:37:26 IMPRESSION: 1. This was a | | [...] A Hiren: 0.75 m/s | |MV Dec [place]: 2.82 m/s2 | |MV DecT: 228.26 ms | |MV E Hiren: 0.63 m/s | |MV E/A Ratio: 0.84 | |E/E' Sept: 13.21 | |E' Lat: 0.05 m/s | |E' Sept: 0.04 m/s | |RV S': 0.17 m/s | | | |Straddle Truck Operator: | |Authenticated by: Anisha Lopez MD | |Report Date/Time: -- 65_[id number]_6:37:26 | | | |IMPRESSION: | |1. This [...]
--- OUTSIDE RECORDS SUMMARY | ~2019-05-05 | XMS | Encounter Summary ---
Demographics + + + | Address | [address] | | | [place] [address] | + + + | Home Phone [...] [place] | | | | | [address] | | + + + + + Care Team Providers + +------+ + | Care Ekg Monitor Tech Name | Role | Phone | [...] | | neoplasm of | [address] | Services [address] | | | | | bronchus and | [place] | [address] | | | | | lung, | [place], [place] | [place], | | | | | unspecified | [address] | [place] [address] | | | | | site | Phone: | Phone: | | | | | | [phone] | [phone] | | | | | | Fax: | Fax: | | | | | | [phone] | [phone] | +--------+ + + + + + Encounter Details +--------+ + + + + | Date | Type | Department | Care Team | Description | +--------+ + + + + | 08/07/ | Hospital | [facility] | Adelita Lu MD | Malignant neoplasm | | 2014 | Encounter | MED CTR NUTRITION | [address] | of bronchus and | | | | SERVICES [address] | [place], [place] | lung, unspecified | | | | [place], | [address] | site (HCC) (Primary | | | | [place] [address] | [phone] | Dx) | | | | [phone] | | | | | | | [...] ALBUMIN 3.2 08/07/2014 Estimated needs (wt. 68kg) 5110-9402 kcals/day 68 gm pro/day Medications: noted ASSESSMENT/PLAN: [...] | | | | | | [facility] | | | | | | [place] [address] | | | | | | [phone] | | | | | | | | +--------+ + + + + | 06/08/ | Office | Physical Medicine | Rocky Santos, | | | 2019 | Visit | and Rehabilitation | [address] | | | | | | [place] | | | | | | [address] | | | | | | | | +--------+ + + + + | 06/16/ | Appointment | Pulmonology | Eveline Jaffe | | | 2019 | | | MD [address] | | | | | | [address] [place] | | | | | | [place] [address] | | | | | | [phone] | | | | | | | | +--------+ + + + + | 06/16/ | Office | Pulmonology | Eveline Jaffe | | | 2019 | Visit | | MD [address] | | | | | | [address] [place] | | | | | | [place] [address] | | | | | | [phone] | | | | | | | | +--------+ + + + + | 08/24/ | Office | Cardiology | Anisha Lopez DO | | | 2019 | Visit | | [address] | | | | | | [place] | | | | | | [address] | | | | | | | [...]
--- OUTSIDE RECORDS SUMMARY | ~2019-05-05 | XMS | Encounter Summary ---
Demographics + + + | Address | [address] | | | [place] [address] | + + + | Home Phone [...] [place] | | | | | [address] | | + + + + + Care Team Providers + +------+ + | Care Percolator Operator Name | Role | Phone | [...] + + | 03/28/ | Office | [facility] | Giuliano Padilla, | Postop check | | 2014 | Visit | ORTHOPEDIC SURGERY | [address] | (Primary Dx) | | | | [address] [facility] | [place] | | | | | [place] | [address] | | | | | [address] | | | | | | [phone] | | | +--------+---------+ + + + [...] | 2018 | Visit | | [address] | | | | | | [facility] | | | | | | [place] [address] | | | | | | [phone] | | | | | | | | +--------+ + + + + | 06/08/ | Office | Physical Medicine | Rocky Santos, | | | 2019 | Visit | and Rehabilitation | MD [address] | | | | | | [place] | | | | | | [address] | | | | | | | | +--------+ + + + + | 06/16/ | Appointment | Pulmonology | Eveline Jaffe | | | 2019 | | | MD [address] | | | | | | [address] [place] | | | | | | [place] [address] | | | | | | [phone] | | | | | | | | +--------+ + + + + | 06/16/ | Office | Pulmonology | Eveline Jaffe | | | 2019 | Visit | | MD [address] | | | | | | [address] [place] | | | | | | [place] [address] | | | | | | [phone] | | | | | | | | +--------+ + + + + | 08/24/ | Office | Cardiology | Anisha Lopez DO | | | 2019 | Visit | | [address] | | | | | | [place], [place] | | | | | | [address] | | | | | | | | +--------+ + + + + documented as of this encounter Visit Diagnoses + + | Diagnosis | + + | Postop check - Primary Follow-up examination, following unspecified surgery | + + documented in this encounter
[~2019-05-05 11:26] MED LIST changes: +DOCUSATE SODIU100 MG PO; +DULOXETINE HCL30 MG PO; +DULOXETINE HCL60 MG PO; +HEALTHYLAX17 GM PO; +LEVOTHYROXINE112 MCG PO; +METOPROLOL SUCC25 MG PO; +OXYCODONE HCL5 MG PO; +VENLAFAXINE HC100 MG PO; +VIRTUSSIN AC L118 ML PO; +WARFARIN SODIU2.5 MG PO; +[UNRECOGNIZED DRUG - OTHER] PO
--- OUTSIDE RECORDS SUMMARY | 2019-05-05 11:30 | XMS ---
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 Care History Medical/Surgical 08/20/2018 [facility] - Patient is currently established with [facility]. If patient is seen in the ED during business hours. Please contact CHWs at [facility]. Care Recommendation: This patient has had 5 or more Emergency Department visits in the last 12 months.\T\nbsp; Patient requires education on the scope and purpose of the ED as an acute care provider not a Primary Care Provider and should not be utilized for chronic conditions.\T\nbsp; These are guidelines and the provider should exercise clinical judgment when providing care. [facility]12 MO.) [address] [facility] [address] [facility] TOTAL 4 NOTE: Visits indicate total known visits. ED/UCC VISIT TRACKING (12 MO.) 05/05/2019 11:27 [facility] [place] TYPE: Emergency COMPLAINT: - POST OP PROBLEM, ABD PAIN [facility]2018 [facility] DIAGNOSES: - Unspecified atrial fibrillation - Irregular Heart Beat - Palpitations - Paroxysmal atrial fibrillation 08/18/2018 14:34 [facility] TYPE: Emergency COMPLAINT: - COPD EXACERBATION 08/02/2018 14:36 [facility]ina TYPE: Emergency COMPLAINT: - L SHOULDER PAIN/NO INJURY DIAGNOSES: - Personal history of nicotine dependence - Prsnl hx of TIA (TIA), and cereb infrc w/o resid deficits - Pain in left shoulder - Bursitis of left shoulder - MCC (current) use of anticoagulants - Chronic obstructive pulmonary disease, unspecified - Essential (primary) hypertension - Other jail (current) drug therapy INPATIENT VISIT TRACKING (12 MO.) 09/01/2018 17:[address] 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 [facility] [place] TYPE: Medical Surgical COMPLAINT: - COPD EXACERBATION, HYPOXIA DIAGNOSES: - Unspecified hemorrhoids - Rheumatoid arthritis, unspecified - Chronic obstructive pulmonary disease w (acute) exacerbation - MCC (current) use of anticoagulants - Constipation, unspecified - Other marketing outreach coordinator (current) drug therapy - Venous insufficiency (chronic) (peripheral) - Gastro-esophageal reflux disease without esophagitis - MCC (current) use of opiate analgesic - Personal history of pulmonary embolism - MCC (current) use of systemic steroids - Unspecified mood [affective] disorder - Nontraumatic hematoma of soft tissue - Acute respiratory failure with hypoxia - Hypothyroidism, unspecified - Malignant neoplasm of unsp part of unsp bronchus or lung - Hyperlipidemia, unspecified - 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
--- NOTE | 2019-05-05 17:35 | NUR ---
PT ARRIVED TO ROOM 111. PT ALERT AND ORIENTED X4. PT DENIES SOB ON 2LPNC AND VSS. ASSESSMENT COMPLETED AND DINNER ORDERED PER PT REQUEST. CALL LIGHT AND H2O IN REACH. PT ON PHONE SPEAKING WITH FAMILY AT THIS TIME. NO FURTHER NEEDS OR CONCERNS VOICED.
--- NOTE | 2019-05-05 19:17 | NUR ---
PT REPORTING BILAT LOWER RIB PAIN THATS WORSENED OVER THE PAST FEW MINUTES PER PT. PT STATES THIS IS SAME PAIN THAT SHE HAD IN ER BUT WORSE. PT REMIASN IN SR. VSS. NOTIFIED. VORB FOR EKG, NO FURTHER ORDERS. EKG COMPLETED AND PT REMAINS IN NSR. CALL LIGHT AND H2O IN REACH. PT STATES PAIN IS SUBSIDED AND APPEARS TO BE IN NO ACUTE DISTRESS AT THIS TIME.
--- NOTE | 2019-05-05 19:30 | NUR ---
PATIENT CURRENTLY GETTING AN EKG AND DR LIGHT HERE TO TALK WITH PATIENT PATIENT HAVING 6/10 CHEST PAIN THAT ALTERNATES FROM LEFT TO RIGHT, ON 2L/NC WITH SATS IN THE 90'S. CALL LIGHT IN REACH.
--- NOTE | 2019-05-05 19:55 | NUR ---
PATIENT HAVING NO PAIN AT THIS TIME AND IS CURRENTLY GETTING A BREATHING TREATMENT. CALL LIGHT IN REACH.
--- NOTE | 2019-05-05 20:15 | EKG ---
[facility] [address] [facility] [place] [address] Signed Atrial fibrillation with rapid ventricular response Marked ST abnormality, possible inferior subendocardial injury Abnormal ECG When compared with ECG of 18-AUG-2018 14:53, Atrial fibrillation has replaced Sinus rhythm Vent. rate has increased BY [address] now depressed in Inferior leads ST now depressed in Anterolateral leads T wave inversion now evident in Lateral leads Confirmed by JUAN M LIGHT DO ([id number]) on 05/05/2019 8:15:41 PM Electronically Signed By: JUAN M LIGHT DO 05/05/192014 PATIENT NAME: TENA VILLALOBOS Electrocardiogram DATE OF : 43 PHYSICIAN: JUAN M LIGHT DO REPORT #: [id number] REPORT IS CONFIDENTIAL AND NOT TO BE RELEASED WITHOUT AUTHORIZATION
--- NOTE | 2019-05-05 20:16 | EKG ---
[facility] [address] [facility] [place] [address] Signed Normal sinus rhythm Nonspecific ST abnormality Abnormal ECG When compared with ECG of 05-MAY-2019 11:46, (Unconfirmed) Sinus rhythm has replaced Atrial fibrillation Vent. rate has decreased BY [address] no longer depressed in Inferior leads ST no longer depressed in Anterior leads T wave amplitude has decreased in Anterior leads T wave inversion no longer evident in Lateral leads Confirmed by JUAN M LIGHT DO ([id number]) on 05/05/2019 8:15:54 PM Electronically Signed By: JUAN M LIGHT DO 05/05/192015 PATIENT NAME: TENA VILLALOBOS Electrocardiogram DATE OF : 43 PHYSICIAN: JUAN M LIGHT DO REPORT #: [id number] REPORT IS CONFIDENTIAL AND NOT TO BE RELEASED WITHOUT AUTHORIZATION
--- NOTE | 2019-05-05 20:22 | NUR ---
LAB CALLED WITH STAT LAB VALUE ON TROPONIN, WHICH DECREASED FROM THE EARLIER ONE. DR LIGHT IS AWARE. NO NEW ORDERS RECEIVED.
--- NOTE | 2019-05-05 23:14 | NUR ---
PATIENT RESTING QUIETLY IN SEMI-FOWLERS POSITION, RESPIRATIONS REGULAR AND EVEN, EYES CLOSED AND CALL LIGHT IN REACH.
--- NOTE | 2019-05-06 01:00 | NUR ---
PATIENT RESTING QUIETLY IN SEMI-FOWLERS POSITION, RESPIRATIONS REGULAR AND EVEN, EYES CLOSED, TELE RATE 78BPM. CALL LIGHT IN REACH.
--- NOTE | 2019-05-06 03:10 | NUR ---
PATIENT HAVING NO PAIN AND STILL DOES NOT HAVE TO URINATE. CALL LIGHT IN REACH. HR=70'S ON TELE.
--- NOTE | 2019-05-06 06:04 | NUR ---
PATIENT VOIDED JUST ABOUT 10PM AND WAS VERY INDEPENDENT, VERY STRONG, HAS HAD NO MORE CHEST PAIN GOT RIGHT OUT OF BED TO VOID ON IN THE BEDSIDE COMMODE AND THEN GOT HER SELF BACK IN BED. PATIENT HAS BEEN ASKED SEVERAL TIMES IF SHE NEEDED TO VOID AND HAS SAID NO. TELE#2 HAS SHOWN SR IN THE 70'S MOST OF THE NIGHT. PATIENT RESTING QUIETLY AT THIS TIME, WITH EYES CLOSED AND RESPIRATIONS REGULAR AND EVEN. CALL LIGHT IN REACH.
--- NOTE | 2019-05-06 06:37 | NUR ---
PATIENT JUST AWOKE AGAIN WITH 8/10 RT ABD PAIN. 0.5MG IV DILAUDID GIVEN WITH 5MG OXYCODONE AND 650 MG PO TYLENOL, THIS MIXTURE SEEMS TO HELP THE PATIENT SPAN A LONGER AMOUNT OF TIME BETWEEN PAIN MEDS AND THE PAIN DOES NOT COME BACK QUICKLY. PATIENT ALSO JUST VOIDED 400MLS.
--- NOTE | 2019-05-06 07:29 | NUR ---
REPORT RECEIVED FROM DECORATING MACHINE OPERATOR RN. PT AWAKE IN BED. REPORTS LOWER ABDOMINAL PAIN 3/10 AND TOLERABLE. BREAKFAST ORDERED. PT ON 2L NC. LR AT 125ML/HR INFUSING WNL. PT IS ALERT AND ORIENTED. CALL LIGHT IN REACH. DENEIS NEEDS AT THIS TIME.
--- NOTE | 2019-05-06 08:00 | NUR ---
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
--- NOTE | 2019-05-06 08:15 | NUR ---
SPOKE WITH PATIENT IN ROOM. PATIENT LIVES WITH LIFE PARTNER AND HE IS HER MAIN CAREGIVER. SHE HAS ADULT KIDS IN AREA. SHE STATES SHE USES A CANE AND WALKER. SHE FEELS SAFE TO GO HOME. SHE FEELS SHE HAS EVERYTHING NEEDED. SHE STATES SHE FEELS A LITTLE WEAK ON HER FEET. DISCUSSED WITH HER WE MAY HAVE PT WORK WITH HER TO MAKE SURE SHE IS SAFE. SHE STATES SHE CAN STILL DRIVE, BUT DOESN'T OFTEN. STATES DENISHA DRIVES HER TO APPOINTMENTS. WILL CONTINUE TO FOLLOW.
--- NOTE | 2019-05-06 08:30 | NUR ---
PATIENT IS SITTING UP IN HER CHAIR EATING HER BREAKFAST. BROUGHT HER TWO WARM BLANKETS AND ICE WATER.
--- NOTE | 2019-05-06 10:19 | NUR ---
ASSESSMENT COMPLETED. LUNGS COARSE AT BASES. AUDIBLE BREATH SOUNDS. PT ON 2L NC. AMBULATED TO BATHROOM WITH TELE IN PLACE. HR UP TO 122 WITH ACTIVITY. SOB ALSO NOTED. PT RECOVERS TO 76 AT REST. HEART SOUNDS NORMAL. PT REPORTS FULL BODY "ACHES". TYLENOL ADMINISTERED. PT IS ALERT AND ORIENTED X3. ATE 100% OF BREAKFAST. PT UP IN CAHIR FOR BREAKFAST THEN BACK TO BED AFTER. DRESSIGN TO IV SSITE CHANGED D/T SATURATION. LR AT 125 INFUSING WNL INTO PT PORT. CALL LIGHT IN REACH. TYP BECK NEEDS.
--- NOTE | 2019-05-06 12:06 | NUR ---
HUNG. PT UP EATING LUNCH. DENEIS PAIN. CALL LIGHT IN REACH.
--- NOTE | 2019-05-06 16:05 | EKG ---
[facility] [address] [facility] [place], [place] [address] Signed Normal sinus rhythm with sinus arrhythmia Normal ECG When compared with ECG of 05-MAY-2019 13:37, (Unconfirmed) No significant change was found Confirmed by JUAN M LIGHT DO ([id number]) on 05/06/2019 4:05:04 PM Electronically Signed By: JUAN M LIGHT DO 05/06/19 1605 PATIENT NAME: TENA VILLALOBOS Electrocardiogram DATE OF : 43 PHYSICIAN: JUAN M LIGHT DO REPORT #: [id number] REPORT IS CONFIDENTIAL AND NOT TO BE RELEASED WITHOUT AUTHORIZATION
[2019-05-06] MEDS ORDERED: D3 DOTS2000 UNIT PO (16:24)
[2019-05-06] MEDS ORDERED: FOLIC ACID0.8 MG PO (16:26)
[2019-05-06] MEDS ORDERED: MELATONIN10 M2 PO (16:27)
[2019-05-06] MEDS ORDERED: VENLAFAXINE HCL75 M1 PO (16:29)
[2019-05-06] MEDS ORDERED: AUGMENTIN 875-1 EACH PO (16:36)
[2019-05-06] MEDS ORDERED: ALDACTONE25 MG PO (16:38)
[2019-05-06] MEDS ORDERED: BUDESONIDE0.5 MG/2 M PO (16:39)
--- NOTE | 2019-05-06 16:42 | NUR ---
MED REC COMPLETED. SEVERAL UPDATES HAVE BEEN MADE.
--- NOTE | 2019-05-06 17:33 | NUR ---
PT SBA JONATHAN CHAIR FOR DINNER. BENJAMIN PAIN. CALL [facility] IN REACH
--- NOTE | 2019-05-06 20:42 | NUR ---
PATIENT RESTING IN BED QUIETLY, EYES CLOSED, RESPIRATIONS REGULAR AND EVEN. CALL LIGHT IN REACH.
--- NOTE | 2019-05-06 21:37 | NUR ---
POCKETED SPRING ASSEMBLER ROUNDING NOTE. PT RESTING IN BED AWAKE. PT REQUESTS TYLENOL AND MELATONIN. PRIMARY RN NOTIFIED. PT DENIES OTHER QUESTIONS OR CONCERNS AT THIS TIME. CALL LIGHT IN REACH. WHITE BOARD UPDATED. ROOM IN VIEW OF RN STATION.
--- NOTE | 2019-05-06 21:50 | NUR ---
PATIENT STARTED HAVING 7/10 RIGHT SIDED NECK PAIN WHICH SHE GETS A LOT WITH HER CHRONIC PAIN AND ABD IS ACHING WELL. 10MG OXCODONE PO AND 2 TYLENOL PO GIVEN. PATIENT'S VS STABLE AND HER CALL LIGHT IS IN REACH AND SHE CAN BE SEEN FROM THE NURSES STATION.
--- NOTE | 2019-05-06 22:49 | NUR ---
PATIENT RESTING QUIETLY ON HER RIGHT SIDE, EYES CLOSED, RESPIRATIONS REGULAR AND EVEN, CALL LIGHT IN REACH. PATIENT CAN BE SEEN FROM NURSES DESK.
--- NOTE | 2019-05-07 01:35 | NUR ---
PATIENT HAD GOTTEN OUT OF BED AND VOIDED IN THE BATHROOM ON HER OWN AND HAD A BOWEL MOVEMENT. INFORMED PATIENT AGAIN SHE NEEDED TO CALL US IF SHE WAS GOING TO NEED TO GET UP. HAT IN BATHROOM AND BED ALARM NOW ON AND PATIENT RESTING IN BED. CALL LIGHT IN REACH.
--- NOTE | 2019-05-07 02:01 | NUR ---
PATIENT STARTED HAVING 7/10 NECK PAIN AGAIN FROM A PLATE SHE HAS IN HER NECK. 10MG OXYCODONE GIVEN FOR PAIN. CALL LIGHT IN REACH.
--- NOTE | 2019-05-07 03:12 | NUR ---
PATIENT SAYS SHE IS FEELING BETTER AND NOT HAVING PAIN CURRENTLY AND JUST TRYING TO REST. CALL LIGHT IN REACH.
--- NOTE | 2019-05-07 04:46 | NUR ---
PATIENT HASN'T SLEPT MUCH TONIGHT AND HAS BEEN WATCHING TV MOST OF THE TIME. SHE SAYS SHE FEELS LIKE SHE SSLEPT TOO MUCH LAST NIGHT AND JUST CAN'T GET TO SLEEP. PATIENT SAYS HER NECK PAIN IS ABOUT 4/10 AT THIS TIME, WHERE IT WILL USUALLY SIT ABOUT A 6/10, SO SHE FEELS PRETTY COMFORTABLE. EVEN THOUGH SHE HAD BEEN INSTRUCTED TO CALL STAFF TO GET UP AND SHE IS ALERT AND ORIENTED SHE DID SNEAK TO THE BATHROOM AND VOID AND HAVE A BM, WHICH WAS VIUALIZED BY STAFF RIGHT AFTER SHE HAD DONE IT. BED ALARM IS NOW ON. PATIENT TAKING IN FLUIDS WELL AND IS CURRENTLY IN BED WATCHING TV. CALL LIGHT IS IN REACH.
--- NOTE | 2019-05-07 05:56 | NUR ---
PATIENT JUST STARTED HAVING 9/10 PAIN IN HER NECK AGAIN AND STARTED SHAKING. 10MG PO DILAUDID GIVEN. CALL LIGHT IN REACH. PATIENT DOES NOT HAVE TO URINATE YET, BUT HAS A NEW GLASS OF ICE WATER.
--- NOTE | 2019-05-07 06:21 | NUR ---
BED ALARM ON PATIENT WAS UP ONCE DURING THE NIGHT TO THE BATHE PATIENT IS A STANDBY ASSIST, FRESH WATER WAS GIVEN AND CALL LIGHT IN REACH.
--- NOTE | 2019-05-07 07:10 | NUR ---
Report received, orders acknowledged. Patient laying in bed, alert and awake. Denies any needs at this time, call light within reach.
--- NOTE | 2019-05-07 07:51 | NUR ---
PATIENT RESTING IN BED, WATCHING TV. PATIENT PERFORMED AM CARE AND IS IN A CHEERFUL MOOD THIS MORNING. CALL LIGHT IN REACH. NO OTHER NEEDS AT THIS TIME.
--- NOTE | 2019-05-07 09:13 | NUR ---
PATIENT BACK TO BED WITH STANDBY ASSIST. PATIENT AGREED TO USE CALL LIGHT.
--- NOTE | 2019-05-07 09:35 | NUR ---
Patient sitting up in bed watching tv. AM medications given, assessment complete. Lung sounds coarse throughout all lobes, with ronchi in right lower lobe. Patient encouraged to use the IS. Patient ambulated independently to toilet, voiding QS. Returned to chair independently. Warm blanket provided. Patient reports pain of 8/10, pain medication provided. Denies further needs at this time, call light within reach.
--- NOTE | 2019-05-07 11:20 | NUR ---
Patient sitting up in chair, alert and awake. Denies pain or further needs. Call light within reach.
--- NOTE | 2019-05-07 11:21 | NUR ---
ANSWERED PATIENT'S CALL LIGHT SHE WANTED TO SIT UP IN HER CHAIR FOR BREAKFAST. SO I STOOD BY WHILE SHE WALKED OVER TO HER CHAIR IN CASE SHE NEEDED ANY HELP.
--- NOTE | 2019-05-07 11:36 | NUR ---
RT in room with patient
--- NOTE | 2019-05-07 12:10 | NUR ---
Patient sitting up in bed with family in room. Denies pain or further needs at this time, call light within reach.
--- NOTE | 2019-05-07 13:28 | NUR ---
PATIENT UP TO BATHROOM AND BACK TO BED, SBA. CALL LIGHT IN REACH. FRESH WATER GIVEN. NO FURTHER NEEDS AT THIS TIME.
--- NOTE | 2019-05-07 15:44 | NUR ---
Patient sitting up in bed with family at bedside. Breathing is even and unlabored. Denies further needs at this time, call light within reach.
--- NOTE | 2019-05-07 18:15 | NUR ---
Patient up to toilet independently, voiding QS. Returns to bed independently. Patient has dyspnea on exertion. Breathing returns to even and unlabored after sitting at the edge of the bed. Denies needs at this time, call light within reach.
--- NOTE | 2019-05-07 18:40 | NUR ---
PATIENT SET UP FOR A SHOWER BUT STATED SHE IS TOO TIRED TO SHOWER TONIGHT AND IS REQUESTING A SHOWER IN THE MORNING.
--- NOTE | 2019-05-07 20:03 | NUR ---
PATIENT RESTING QUIETLY ON HER RIGHT SIDE, AWAKE AND HAS NO NEEDS AT THIS TIME. REFUSED HER SCHEDULED NEB TREATMENT. CALL LIGHT IN REACH.
--- NOTE | 2019-05-07 20:21 | NUR ---
TAPE DUPLICATOR ROUNDING NOTE. PT RESTING IN BED AWAKE. DENIES QUESTIONS OR CONCERNS AT THIS TIME. CALL LIGHT WITHIN REACH. ROOM IN VIEW OF RN STATION. WHITE BOARD UDPATED.
--- NOTE | 2019-05-07 22:40 | NUR ---
PATIENT'S PAIN UP TO 9/10 IN HER NECK AND GIVEN 2 PO TYLENOL AND 10MG PO OXYCODONE. PATIENT ALSO FEELING SHE IS NEEDING A BREATHING TREATMENT NOW AND RT WAS CALL AND IS GIVING THAT NOW. CALL LIGHT IN REACH.
--- NOTE | 2019-05-08 01:10 | NUR ---
PATIENT RESTING IN SEMI-FOWLERS POSITION, EYES CLOSED, RESPIRATIONS REGULAR AND EVEN, PATIENT IN NO DISTRESS. CALL LIGHT IN REACH.
--- NOTE | 2019-05-08 03:30 | NUR ---
PATIENT UP TO THE RESTROOM AND VOIDED 300MLS WITH 1PSBA AND BACK TO BED. CALL LIGHT IN REACH.
--- NOTE | 2019-05-08 05:01 | NUR ---
PATIENT HAS HAD OXYCODONE AND TYLENOL X2 TONIGHT FOR NECK PAIN WHICH HAS WORKED REALLY WELL TO KEEP HER PAIN UNDER CONTROL. PATIENT ONLY HAS VOIDED 300MLS SINCE 0 AND IS CURRENTLY RESTING QUIETLY, EYES CLOSED RESPIRATIONS REGULAR AND EVEN. CALL LIGHT IN REACH.
--- NOTE | 2019-05-08 07:00 | NUR ---
Report received, orders acknowledged. Patient sitting up in bed, alert and awake. Patient coughed up scant amount of blood. Will notify MD. Patient denies pain and reports breathing feels "the same as yesterday." Denies further needs at this time, call light within reach.
--- NOTE | 2019-05-08 07:15 | NUR ---
Respiratory therapy in room with patient getting breathing tx
--- NOTE | 2019-05-08 08:15 | NUR ---
Patient up to chair for breakfast, ambulating independently with SBA. Warm blanket provided. Assessment complete, vital signs taken. Respirations are dyspneic after exertion with an SpO2 of 94%. Respirations become even and unlabored after sitting in the chair for one minute. POC discussed with patient. Denies further needs at this time, call light within reach.
--- NOTE | 2019-05-08 08:17 | NUR ---
WALKED IN TO CHECK ON PATIENT SHE WAS ALREADY SITTING UP IN HER CHAIR EATING BREAKFAST. WE ARE GOING TO TRY TODAY TO GET IN THE SHOWER.
--- NOTE | 2019-05-08 09:00 | NUR ---
Patient sitting up in chair watching tv. Denies needs at this time, call light within reach.
--- NOTE | 2019-05-08 10:08 | NUR ---
Patient sitting up in chair watching tv. Denies pain. No needs at this time, call light within reach.
--- NOTE | 2019-05-08 11:15 | NUR ---
Patient ambulated to toilet and returned to bed. Patient dyspneic on exertion with SpO2 of 92%. Respirations even and labored. 2LNC put on patient with SpO2 reaching 96%. After several minutes, patients breathing returns to even and unlabored. Patient reports feeling "better." Warm blanket provided. Patient denies further needs at this time, call light within reach.
--- NOTE | 2019-05-08 14:18 | NUR ---
Patient laying in bed watching tv. Nystatin powder applied underneath both breasts. Patient denies further needs at this time, call light within reach.
--- NOTE | 2019-05-08 16:10 | NUR ---
Patient sitting up in chair watching tv. Family at bedside. Assessment complete. Lung sounds coarse throughout with rhonchi noted in the lower right lobe. Patient denies needs at this time, call light within reach.
--- NOTE | 2019-05-08 17:30 | NUR ---
IV placed in patient, tolerated well. Family in room at bedside. Dinner delivered, patient sitting up in chair eating meal. Warm blanket provided. No further needs at this time, call light within reach.
--- NOTE | 2019-05-08 17:45 | NUR ---
Patient ambulated from chair to bed with SBA. Dsypnea noted on exertion, 2LNC placed. Respirations even and labored. After several minutes of laying in the bed, respirations become even and unlabored. Warm blankets are provided, no further needs at this time, call light within reach.
--- NOTE | 2019-05-08 19:15 | NUR ---
Dr. Sandoval notified of patients urine output. Orders acknowledged.
--- NOTE | 2019-05-08 19:45 | NUR ---
PATIENT DOING BETTER AFTER BACK IN BED AND BACK ON 2L/NC. PATIENT GOT A NEB TREATMENT AND SHE IS NOT HAVING ANY PAIN AT THIS TIME. CALL LIGHT IN PLACE.
--- NOTE | 2019-05-08 21:36 | NUR ---
PATIENT SEEMS A LITTLE SHORTER OF BREATH TONIGHT, AND HAVING SOME 6/10 PAIN IN HER NECK AND 650MG TYLENOL GIVEN. PATIENT RESTING QUIETLY IN BED AND SATS IN THE 90'S ON 2L/NC. CALL LIGHT IN REACH.
--- NOTE | 2019-05-08 23:37 | NUR ---
PATIENT JUST FINISHED A NEB TREATMENT AND HER NECK PAIN IS 7/10 AND 10MG PO OXYCODONE GIVEN. PATIENT HAD NO OTHER NEEDS AND IS WATCHING TV. CALL LIGHT IN REACH.
--- NOTE | 2019-05-09 01:14 | NUR ---
PATIENT WATCHING TV, HAS NO NEEDS AT THIS TIME, PAIN BETTER AND CALL LIGHT IN REACH.
--- NOTE | 2019-05-09 02:53 | NUR ---
PATIENT RESTING QUIETLY, EYES CLOSED, RESPIRATIONS REGULAR AND EVEN, CALL LIGHT IN REACH.
--- NOTE | 2019-05-09 06:08 | NUR ---
PATIENT FEELING BETTER AFTER GETTING HER 10MG OXYCODONE AND 2 TYLENOL JUST BEFORE 5AM, PAIN IN THE BACK OF HER NECK DOWN TO 5/10 WHICH SHE IS COMFORTABLE WITH. IS SLEPT FAIRLY WEL AND AWAKE WATCHING TV AT THIS TIME. CALL LIGHT IN REACH AND PATIENT VISIBLE FROM THE NURSES STATION.
--- NOTE | 2019-05-09 08:11 | NUR ---
BEDSIDE REPORT RECEIVED PT ALERT AND INTERACTIVE. UP TO THE CHAIR FOR BREAKFAST.
--- NOTE | 2019-05-09 10:24 | NUR ---
PATIENT UP TO BATHROOM, SBA. ORAL CARE DONE AT SINK. FRESH WATER GIVEN. CALL LIGHT IN REACH. NO FURTHER NEEDS AT THIS TIME.
--- NOTE | 2019-05-09 11:17 | NUR ---
PT CONTINUES UP IN THE CHAIR THEN UP TO WORK WITH P/T RETURNS TO BED TO REST FOR A TIME. PT DENIES PAIN OR NEEDS OF, CALL LIGHT IN REACH. LOTION APPLIED TO DRY SKIN ON LEGS PER REQUEST
--- NOTE | 2019-05-09 12:15 | NUR ---
PT ALERT, ORIENTED AND SITTING UP IN BED. PT IS ON O2NC, AND SEEMS TO BE IN GOOD SPIRITS. PT IS VERY PLEASED WITH HER CARE, AND GLAD THAT SHE HAD THE PROCEDURE LAST WEEK THAT CAUGHT HER EMBOLISM. PT REQUESTED PRAYER, WILL FOLLOW NEEDED. LIZA GAVE PT A COLORING BK.
--- NOTE | 2019-05-09 13:34 | NUR ---
PATIENT SITTING IN CHAIR. FRESH WATER GIVEN. CALL LIGHT IN REACH. NO FURTHER NEEDS AT THIS TIME.
--- NOTE | 2019-05-09 13:58 | NUR ---
PT RETURNS TO BED AFTR NOON MEAL TO NAP FOR A BIT. RESTING EYES CLOSED BREATHING EVEN AND UNLABORED
--- NOTE | 2019-05-09 14:47 | NUR ---
PATIENT SHOWERED WITH MINIMAL ASSISTANCE. PATIENT SCRATCHING AT HER BACK, LOTION APPLIED TO HELP WITH DRYNESS. PATIENT BACK IN BED, FAMILY IN ROOM. NO OTHER NEEDS AT THIS TIME.
--- NOTE | 2019-05-09 18:09 | NUR ---
PATIENT SITTING IN CHAIR WATCHING TV. NO VOID, WILL CHECK BACK IN LATER. CALLL LIGHT IN REACH. NO FURTHER NEEDS AT THIS TIME.
--- NOTE | 2019-05-09 18:12 | NUR ---
PT UP TO THE CHAIR FOR EVENING MEAL. CHECKED PORT FOR BLOOD RETURN THEN FLUSHED WITH 10 ML NS. REPORTED TO LAB PORT TO BE USED FOR AM LABS TOMORROW, PT SKIN IS THIN, FRAGILE, AND DISCOLORED. STATES SHE IS A HARD STICK.
--- NOTE | 2019-05-09 20:44 | NUR ---
PT ASSESSMENT COMPLETE. PT DENIES PAIN, NAUSEA, OR SOB. PT WITH COUGH THROUGHOUT ASSESSMENT, STATES THAT SHE HAS OCCASIONAL THICK MUCOUS PRODUCTION. DENIES SOB. LUNG SOUNDS COARSE WITH EXPIRATORY WHEEZE THROUGHOUT. MULTIPLE VARIOUS BRUISES HEAD TO TOE. PT ASKS FOR CAKE TO BE MOVED WITHIN HER REACH, DENIES FURTHER NEEDS AT THIS TIME. CALL LIGHT WITHIN REACH.
--- NOTE | 2019-05-09 23:25 | NUR ---
PT RESTING IN BED WITH EYES CLOSED. DOES NOT WAKE WHEN BAGGAGE AGENT TURNS OFF HER LIGHT OR CLOSES THE DOOR. RESPIRATIONS EVEN AND UNLABORED. PT APPEARS TO BE SLEEPING. CALL LIGHT IN REACH. ROOM IN VIEW OF RN STATION.
--- NOTE | 2019-05-10 01:16 | NUR ---
PT RESTING IN BED WITH EYES CLOSED. PT OCCASIONALLY KICKING HER LEGS AND REPOSITIONING HERSELF. APPEARS TO BE ASLEEP. CALL LIGHT IN REACH. ROOM IN VIEW OF RN STATION.
--- NOTE | 2019-05-10 02:26 | NUR ---
PT REPORTS PAIN, 8/10 TO NECK. PRN OXYCODONE ADMINISTERED PER PT REQUEST. PT UP TO USE THE BATHROOM AND BACK TO BED WITH 1 PA. PT TOLERATED WELL. PT ASSESSMENT COMPLETE. PT SOB WITH EXERTION. LUNG SOUNDS COARSE WITH WHEEZE THROUGHOUT. PT HAS OCASSIONAL COUGH DURING ASSESSMENT. O2 IN PLACE @ 2 LPM. ICE WATER REFILLED. PT DENIES FURTHER NEEDS AT THIS TIME. CALL LIGHT WITHIN REACH.
--- NOTE | 2019-05-10 09:36 | NUR ---
PATIENT IN BED RESTING WITH EYES CLOSED. CALL LIGHT IN REACH. NO FURTHER NEEDS AT THIS TIME.
--- NOTE | 2019-05-10 11:44 | NUR ---
PT DENIES CHEST PAIN AND OR SOB AT THIS TIME. PT SITTING UP IN CHAIR VISITING WITH FRIEND.
--- NOTE | 2019-05-10 11:55 | NUR ---
PT SITTING IN CHAIR, BIG SMILE AND STAFF IN TO WORK WITH PT. GAVE A BLESSING, SHE THANKED ME AND SAID SHE WAS FEELING OK. WILL FOLLOW NEEDED
--- NOTE | 2019-05-10 13:30 | NUR ---
OXYCODONE 10MG PO ADMIN FOR REPORTS OF 8/10 BACK PAIN.
--- NOTE | 2019-05-10 13:36 | NUR ---
PATIENT IN CHAIR WATCHING TV. FRESH WATER GIVEN. CALL LIGHT IN REACH. NO FURTHER NEEDS AT THIS TIME.
--- NOTE | 2019-05-10 15:30 | NUR ---
In to speak with Thea. Pt sitting up in a chair. Denies c/o. Wants to go home when able. senior care friend Mirza helps her. Pt will need PT on dc. Has not decided which one she wants.
--- NOTE | 2019-05-10 17:14 | NUR ---
PT A&OX4, PLEASANT. ON 2L 02, DOES NOT WEAR CHRONIC O2. OXYCODONE PRN PAIN. DENIES CHEST PAIN AND OR SOB. COUMADIN PO STARTED TODAY. VS STABLE. PT UP WITH PT TODAY AND TOLERATED WELL.
--- NOTE | 2019-05-10 19:03 | NUR ---
PATIENT IN BED WATCHING TV. PATIENT ASKED FOR POWDER UNDER ZEV VELASQUEZ NOTIFIED. CALL LIGHT IN REACH. NO FURTHER NEEDS AT THIS TIME.
--- NOTE | 2019-05-10 20:10 | NUR ---
PATIENT HAVING 7/10 PAIN IN HER NECK AND BACK AND MEDICATED WITH OXYCODONE 10MG AND TYLENOL. WATER GALSS FILLED CALL LIGHT IN REAC.
--- NOTE | 2019-05-10 21:56 | NUR ---
PATIENT'S PAIN DOWN TO 5/10 AND IS COMFORTBLE WATCHING A MOVIE AND HAS NO NEEDS AT THIS TIME. CALL LIGHT IN REACH.
--- NOTE | 2019-05-10 23:28 | NUR ---
PATIENT HAVING 8/10 NECK AND BACK PAIN AND 10MG OXCODONE PO GIVEN. CALL LIGHT IN REACH.
--- NOTE | 2019-05-11 01:02 | NUR ---
PATIENT RESTING QUIETLY ON 2L/NC, EYES CLOSED, RESPIRATIONS ARE REGULAR AND EVEN. CALL LIGHT IN REACH.
--- NOTE | 2019-05-11 03:31 | NUR ---
PATIENT WATCHING TV, NECK PAIN BACK TO 7/10 AND 10MG PO OXYCODONE GIVEN AND PO TYLENOL. CALL LIGHT IN REACH.
--- NOTE | 2019-05-11 05:24 | NUR ---
PATIENT REST WELL MOST OF THE SHIFT, BUT DID NEED PAIN MEDICATION A COUPLE TIMES DURING THE NIGHT FOR HER NECK AND BACK. PATIENT WAS UP TO THE BATHROOM X2 DURING THE NIGHT WITH 1PSBA. PATIENT RESTING AND WATCHING TV AT THIS TIME, PAIN 4/. CALL LIGHT IN REACH AND ICEWATER REFILLED.
--- NOTE | 2019-05-11 06:01 | NUR ---
PATIENT LAB DRAW DONE AT 0550 FROM IMPLANTED PORT AND NEW CLAVE AND NS AND HEPARIN USED TO FLUSH PER PROTOCOL.
--- NOTE | 2019-05-11 07:29 | NUR ---
Pt awake, a&ox4. Pt denies pain, sob and or chest pain. Pt denies needs at this time. Personal supplies and call light within reach.
--- NOTE | 2019-05-11 07:45 | NUR ---
PATIENT RESTING IN BED. PATIENT TRANSFERRED TO CHAIR. ONE PERSON ASSISTING. PATIENT'S FACE AND HANDS CLEANED. WARM BLANKET PROVIDED. CALL LIGHT WITHIN REACH. NO OTHER NEEDS AT THIS TIME
--- NOTE | 2019-05-11 09:45 | NUR ---
PATIENT SITTING UP IN CHAIR. PATIENT GOES TO USE THE BATHROOM. ONE PERSON ASSISTING. PATIENT BACKS TO BED. VITAL SIGNS AND I&O DONE. CALL LIGHT WITHIN REACH. NO OTHER NEEDS AT THIS TIME
--- NOTE | 2019-05-11 10:25 | NUR ---
Received 02 qualifyer. Awaiting dc summary to send to [facility].
--- NOTE | 2019-05-11 10:32 | NUR ---
PT A&OX4. PT SITTING UP IN CHAIR. PT DENIES RESP DISTRESS. PT ON 2L OXYGEN.
--- NOTE | 2019-05-11 11:01 | NUR ---
Oxycodone 10mg po admin for reports of 6/10 neck pain.
--- NOTE | 2019-05-11 12:55 | NUR ---
PT SITTING IN CHAIR, ALERT AND ORIENTED. SHE SEEMS EXCITED TO BE DC'D TODAY. PT FELT COMFORTABLE ENOUGH TO SHARE WITH ME SOME OF HER LIFE. BEGAN TO TELL ME ABOUT HER FAMILY AND WE WERE INTERRUPTED BY STAFF [place] [facility] [place]ATHER STARTLED PT AND MADE IT DIFFICULT TO CARRY ON VISIT. EXTENDED A BLESSING, WILL FOLLOW NEEDED
--- NOTE | 2019-05-11 13:00 | NUR ---
Sent DC note, 02 qualifier, order, progress notes, and prescription to [facility]. Called and confirmed they received fax.
--- NOTE | 2019-05-11 14:00 | NUR ---
Notified by [facility], Julia is not contracted with [facility]. She has sent the fax on to Erick DRAKE.
--- NOTE | 2019-05-11 14:08 | NUR ---
PATIENT SITTING UP IN CHAIR. VITAL SIGNS AND I&O DONE. HIGH SYSTOLIC BLOOD PRESSURE. RN NOTIFIED. CALL LIGHT WITHIN REACH. NO OTHER NEEDS AT THIS TIME
--- NOTE | 2019-05-11 14:46 | NUR ---
Called DME. They received the fax and will call me when the have confirmation of payment from [facility].
--- NOTE | 2019-05-11 16:38 | NUR ---
Admin oxycodone 10mg po for reports of 5/10 neck pain.
--- NOTE | 2019-05-11 16:47 | NUR ---
CALLED MANI ABOUT THE OXYGEN ORDER TO SEE IF IT HAD BEEN APPROVED AND SHE WAS STILL WAITING ON APPROVAL FROM INSURANCE. SHE WILL CALL US SOON SHE HEARS FROM INSURANCE. OFFERED DINNER TO PATIENT AND HER SIGNIFICANT OTHER. CALL LIGHT IN PLACE.
--- NOTE | 2019-05-11 18:03 | NUR ---
PATIENT RESTING IN BED. BOYFRIEND IN ROOM. VITAL SIGNS AND I&O DONE. HIGH SYSTOLIC BLOOD PRESSURE. RN NOTIFIED. CALL LIGHT WITHIN REACH. NO OTHER NEEDS AT THIS TIME
--- NOTE | 2019-05-11 18:31 | NUR ---
PT SITTING IN BED AT THIS TIME. PT DENIES CHEST PAIN AND SOB. PT REMAINS ON 2L OXYGEN. NO NEEDS AT THIS TIME. PERSONAL SUPPLIES AND CALL LIGHT WITHIN REACH.
--- NOTE | 2019-05-11 20:08 | NUR ---
PATIENT HAVING 7/10 NECK AND BACK PAIN. 10MG OXYCODONE GIVEN PO. DR. SWEENEY SAID NO NEED FOR I+O TONIGHT. PATIENT HAS FRESH WATER. CALL LIGHT IN REACH.
--- NOTE | 2019-05-11 20:14 | NUR ---
ROUNDED CHARGE. VITALS TAKEN AND RECORDED. INTAKE AND OUPUT RECORDED. PATIENT DENIES ANY NEEDS. MICHAEL BROTHERS PRESENT IN ROOM. CALL LIGHT IN REACH.
--- NOTE | 2019-05-11 21:25 | NUR ---
PATIENT WATCHING TV IN BED AND HAS NO NEEDS AT THIS TIME. PAIN DOWN TO 5/10. CALL LIGHT IN REACH. PATIENT COMFORTABLE AT THIS TIME.
--- NOTE | 2019-05-11 23:03 | NUR ---
PATIENT RESTING QUIETLY IN LOW FOWLERS POSITION, YES CLOSD, ON 2L/NC, RESPIRATIONS REGULAR AND EVEN. CALL LIGHT IN REACH.
--- NOTE | 2019-05-12 01:35 | NUR ---
PATIENT RESTING QUIETLY ON HER LEFT SIDE ON 2L/NC, RESPIRATIONS REGULAR AND EVEN, EYES CLOSED . CALL LIGHT IN REACH. PATIENT CAN BE SEEN FROM THE NURSES STATION.
--- NOTE | 2019-05-12 02:14 | NUR ---
CALL LIGHT ANSWERED. SBA TO RESTROOM AND BACK TO BED. pt RATES PAIN 7/10 IN NECK. PRN PAIN MEDICATION ADMINISTERED. CALL LIGHT IN REACH. LIGHTS OFF IN ROOM.
--- NOTE | 2019-05-12 03:02 | NUR ---
PATIENT AWAKE AND HAS BEEN COUGHING AND IS ASKING FOR A BREATING TREATMENT SO [facility] IN [facility] WAS CALLED AND IS GIVING THE PATIENT A TREATMENT. CALL LIGHT IN REACH.
--- NOTE | 2019-05-12 05:10 | NUR ---
PATIENT AWAKE AND MORNING VITALS DONE. PATIENT HAVING 7/10 PAIN IN HER NECK AGAIN AND NEEDED ANOTHER BREATHING TREATMENT. PO TYLENOL GIVEN,NOT DUE FOR OXYCODONE YET. CALL LIGHT IN REACH AND PATIENT SAYS SHE IS "DOING OK."
--- NOTE | 2019-05-12 07:44 | NUR ---
PT RESTING SUPINE IN BED EYES CLOSED AND RESPIRATIONS EVEN AND UNLABORED ON 2LPNC. PT APPEARS TO BE SLEEPING COMFORTABLY. CALL LIGHT AND H2O IN REACH.
--- NOTE | 2019-05-12 10:30 | NUR ---
[facility] here to discuss o2 concentrator with patient. Pt verbalized understanding of education. Call light and h2o in reach.
== END 2019-05-12 11:20 | disposition home or self-care (01) | DRG 175 ==
LOC: ED 11:26 → MS 16:51
PROVIDERS: ADMIT Student in an Organized Health Care Education/Training Program
DX: I26.99 Other pulmonary embolism without acute cor pulmonale (principal); I21.A1 Myocardial infarction type 2; J44.1 Chronic obstructive pulmonary disease with (acute) exacerbation; C34.91 Malignant neoplasm of unspecified part of right bronchus or lung; I48.91 Unspecified atrial fibrillation; M06.9 Rheumatoid arthritis, unspecified; I87.2 Venous insufficiency (chronic) (peripheral); K21.9 Gastro-esophageal reflux disease without esophagitis; E78.5 Hyperlipidemia, unspecified; E03.9 Hypothyroidism, unspecified; F39 Unspecified mood [affective] disorder; Z88.1 Allergy status to other antibiotic agents; Z79.01 Long term (current) use of anticoagulants; Z79.52 Long term (current) use of systemic steroids; Z79.899 Other long term (current) drug therapy
CPT/HCPCS: 36415; 71045; 71260; 80048; 80053; 82803; 83735; 83880; 84484; 85025; 85379; 85610; 85730; 93005; 93010; 93306; 94640; 94760; 94761; 97110; 97116; 97162; 97530; 99285-25; J1650; J2060; J2930; J3475; J7121; J7512; Q9967

== ENCOUNTER 2019-12-28 19:44 | Emergency (ER) | payer MEDICARE, OTHER ==
[~2019-12-28] VITALS: Ht 157.5 cm; Wt 69.2 kg
--- OUTSIDE RECORDS SUMMARY | ~2019-12-28 | XMS | Encounter Summary ---
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 | Role | Phone | + +------+ + PCP | Unavailable | + +------+ + Encounter Details +--------+ + + + + | Date | Type | Department | Care Team | Description | +--------+ + + + + | 10/11/ | Hospital | [facility] | Conversion | Pain | | 2013 | Encounter | CONVERSION [address] | Transaction, | | | | | [address] | Provider Unknown | | | | | [place], [place] | [phone] | | | | | [phone] | (Fax) | | | | | [phone] | | | +--------+ + + + + Social History + +-------+ +--------+------+ | Tobacco [...] on file | | + + + documented as of this encounter Plan of Treatment +--------+---------+ + + + | Date | Type | Specialty | Care Team | Description | +--------+---------+ + + + | 03/06/ | Office | Rheumatology | Santosh Sumner, | | | 2019 | Visit | | [address] | | | | | | [facility] | | | | | | [place] [address] | | | | | | [phone] | | | | | | | | +--------+---------+ + + + documented as of this encounter Procedures + +--------+ + + + | Procedure Name | Priori | Date/Time | Associated Diagnosis | Comments | | | ty | | | | + +--------+ + + + | CT LUMBAR SPINE WO | Routin | 10/06/2012 | | Results for this | | CONTRAST | e | 8:39 AM | | procedure are in the | | | | PDT | | results section. | + +--------+ + + + documented in this encounter Results CT Lumbar Spine wo Contrast (10/06/2012 8:39 AM PDT) + + | Specimen | + + | | + + + + + | Narrative | Performed At | + + + | This is a non-reportable procedure without a radiologist report and | | | is used for image storage only | | + + + + + | Procedure Note | + + | Raoul Lockwood - 01/21/2019 4:40 PM PDT This is a non-reportable procedure | | without a radiologist report and isused for image storage only | + + documented in this encounter Visit Diagnoses + + | Diagnosis | + + | Pain Generalized pain | + + documented in this encounter"
--- OUTSIDE RECORDS SUMMARY | ~2019-12-28 | XMS | Encounter Summary ---
Demographics + + + | Address | [address] | | | [place] [address] | + + + | Home Phone | | + + + | Preferred Language | Unknown | + + + | Marital Status | | + + + | Adventism Affiliation | Unknown | + + + | Race | Unknown | + + + | Ethnic Group | Unknown | + + + Author + + + | Author | [facility] | | | and [place] | + + + | Organization | [facility] | | | [...] [place] | | | | | [address] | | + + + + + Care Team Providers + +------+ + | Care Supervisor Finishing Room Name | Role | Phone | + +------+ + | Davis Ivan MD | PCP | | + +------+ + Encounter Details +--------+ + + + + | Date | Type | Department | Care Team | Description | +--------+ + + + + | 03/17/ | Hospital | [facility] | Conversion | | | 2013 | Encounter | [facility] | Transaction, | | | | | CLINIC [address] | Provider Unknown | | | | | [place], [place] | | | | | | [address] | (Fax) | | | | | [phone] | | | +--------+ + + + [...] Inhale 2 puffs into | 1 | 11 | 08/23/19 | | | budesonide-formotero | the lungs 2 times | Inhaler | | 14 | 5 | | l (SYMBICORT) | [...] + + + +---------+ + + | diazepam (VALIUM) | Take 2 mg by mouth | | 0 | | | | 2 mg tablet | nightly as needed. | | | | 5 | + + + +---------+ + + [...] + + + +---------+ + + | omeprazole | Take 20 mg by mouth | | 0 | | | | (PRILOSEC) 20 mg | Twice daily | | | | 5 | | capsule | breakfast/Bedtime. | | | | | + + + +---------+ + + | POTASSIUM | Take 1 tablet by | | 0 | | | | GLUCONATE | mouth Daily. | | | | 5 | + + + +---------+ + + | predniSONE | Take 10 mg by mouth | | 0 | | | | (DELTASONE) 5 mg | Daily. | | | | 6 | | tablet | | | | | | + + + +---------+ + + | Respiratory | Respironics | 1 each | 0 | 12/24/19 | | | Therapy Supplies | autotitrating CPAP | | | 14 | 5 | | MISCIndications: | at 5-9 cm H2O for | | | | | | Obstructive sleep | lifetime. Mask, | | | | | | apnea (adult) | headgear, chin | | | | | | (pediatric) | strap, hoses, | | | | | | | humidifier chamber | | | | | | | and filters. Dx: | | | | | | | 327.23 | | | | | + + [...] | | 2019 | Visit | | [facility] [address] | | | | | | [address] | | | | | | [place] [address] | | | | | | [phone] | | | | | | | | +--------+---------+ + + + documented as of this encounter Procedures + +--------+ + + + | Procedure Name | Priori | Date/Time | Associated Diagnosis | Comments | | | ty | | | | + +--------+ + + + | XR CHEST 2 VIEWS | Routin | 03/17/2014 | | Results for this | | | e | 2:44 PM | | procedure are in the | | | | PDT | | results section. | + +--------+ + + + | EXTERNAL LAB: CBC | Routin | 03/17/2014 | | Results for this | | | e | 2:19 PM | | procedure are in the | | | | PDT | | results section. | + +--------+ + + + | MRSA NAAT | Timed | 03/17/2014 | | Results for this | | | | 2:19 PM | | procedure are in the | | | | PDT | | results section. | + +--------+ + + + | PTT | Routin | 03/17/2014 | | Results for this | | | e | 2:19 PM | | procedure are in the | | | | PDT | | results section. | + +--------+ + + + | PROTIME INR | Routin | 03/17/2014 | | Results for this | | | e | 2:19 PM | | procedure are in the | | | | PDT | | results section. | + +--------+ + + + | BASIC METABOLIC | Routin | 03/17/2014 | | Results for this | | PANEL | e | 2:19 PM | | procedure are in the | | | | PDT | | results section. | + +--------+ + + + | ECG 12 LEAD | Routin | 03/17/2014 | | Results for this | | | e | 2:01 PM | | procedure are in the | | | | PDT | | results section. | + +--------+ + + + documented in this encounter Results XR Chest 2 Vws (03/17/2014 2:44 PM PDT) + + | Specimen | + + | | + + + + + | Impressions | Performed At | + + + | 1. Prior neck and abdomen surgeries. 2. Slight scarring | | | right lung base. No acute process noted in the lungs. No cardiac | | | enlargement seen Electronically signed by Paco Oviedo MD on | | | 03/17/2014 4:27 PM | | + + + + + + | Narrative | Performed At | + + + | [facility] XR CHEST 2 VIEW FRONTAL AND LATERAL 03/17/2014 | | | 2:44 PM HISTORY: 68 years. Female. History of smoking. Cough. | | | Prior neck surgery. Evaluate for spinal or pulmonary abnormalities | | | TECHNIQUE: Two-view COMPARISON: 01/13/13 FINDINGS: | | | Partially depicted fusion plate C6-C7. Left lung clear. Slight | | | pulmonary parenchymal scarring right lung base. Surgical clips right | | | upper quadrant of the abdomen. Dorsal spine intact. | | + + + + -+ | Procedure Note | + -+ | Fabián, Rad Conversion - 01/14/2019 11:10 AM PDT [facility] CHEST 2 VIEW FRONTAL | | AND OYYCEQV6403/17/2014 2:44 PM HISTORY:68 years. Female. History of smoking. Cough. | | Prior neck surgery. Evaluate for spinal or pulmonary abnormalities TECHNIQUE:Two-view | | COMPARISON:01/13/13 FINDINGS:Partially depicted fusion plate C6-C7. Left lung clear. | | Slight pulmonary parenchymal scarring right lung base. Surgical clips right upper | | quadrant of the abdomen. Dorsal spine intact. IMPRESSION: 1. Prior neck and abdomen | | surgeries. 2. Slight scarring right lung base. No acute process noted in the lungs. No | | cardiac enlargement seen | | PM | | | |COMPARISON: | |01/13/13 | | | |FINDINGS: | |Partially depicted fusion plate C6-C7. Left lung clear. Slight pulmonary parenchymal scarri ng right lung base. Surgical clips right upper quadrant of the abdomen. Dorsal spine intact. | | | |IMPRESSION: | |1. Prior neck and abdomen surgeries. | | | |2. Slight scarring right lung base. No acute process noted in the lungs. No cardiac enlarg ement seen | | | | | + -+ PTT (03/17/2014 2:19 PM PDT) + + + + + + | Component | Value | Ref Range | Performed | Pathologist | | | | | At | Signature | + + + + + + | aPTT, | 22 (L)Comment: Testing | 23 - 32 seconds | EXTERNAL | | | Patient | performed at [facility];[address] | | LAB | | | | [address];[place] | | | | | | [address] | | | | + + + + + + + + | Specimen | + + | Blood specimen | | (specimen) | + + + +---------+ + + | Performing | Address | City/State/Zipcode | Phone Number | | Organization | | | | + +---------+ + + | EXTERNAL LAB | | | | + +---------+ + + Protime INR (03/17/2014 2:19 PM PDT) + + + + + + | Component | Value | Ref Range | Performed | Pathologist | | | | | At | Signature | + + + + + + | INR | 0.9Comment: REFERENCE | | EXTERNAL | | | | RANGE:0.9 - 1.2 | | LAB | | | | NON-ANTICOAGULATED2.0 | | | | | | - 3.0 ALL OTHER | | | | | | THERAPEUTIC | | | | | | INDICATIONS2.5 - 3.5 | | | | | | MECHANICAL HEART VALVES, | | | | | | RECURRENT OR SYSTEMIC | | | | | | EMBOLISMTesting | | | | | | performed at [facility];[address] | | | | | | [facility];[place], [place] | | | | | | [address] | | | | + + + + + + + + | Specimen | + + | Blood specimen | | (specimen) | + + + +---------+ + + | Performing | Address | City/State/Zipcode | Phone Number | | Organization | | | | + +---------+ + + | EXTERNAL LAB | | | | + +---------+ + + External Lab: CBC (03/17/2014 2:19 PM PDT) + + + + + + | Component | Value | Ref Range | Performed | Pathologist | | | | | At | Signature | + + + + + + | WBC | 7.1Comment: Testing | 3.8 - 11.0 K/uL | EXTERNAL | | | | performed at [facility], [address] | | LAB | | | | [address], | | | | | | [place] [address] | | | | + + + + + + | Non- | 4.25Comment: Testing | 3.70 - 5.10 | EXTERNAL | | | Red Blood | performed at [facility], [address] | M/uL | LAB | | | Cells | [address], | | | | | Counted | [place] [address] | | | | + + + + + + | Hemoglobin | 12.8Comment: Testing | 11.3 - 15.5 | EXTERNAL | | | | performed at [facility], [address] | g/dL | LAB | | | | [address], | | | | | | [place] [address] | | | | + + + + + + | Hematocrit, | 39.4Comment: Testing | 34.0 - 46.0 % | EXTERNAL | | | POC | performed at [facility], [address] | | LAB | | | | [address], | | | | | | [place] [address] | | | | + + + + + + | MCV | 92.6Comment: Testing | 80.0 - 100.0 fl | EXTERNAL | | | | performed at [facility], [address] | | LAB | | | | [address], | | | | | | [place] [address] | | | | + + + + + + | MCH | 30.0Comment: Testing | 27.0 - 34.0 pg | EXTERNAL | | | | performed at [facility], [address] | | LAB | | | | [address], | | | | | | [place] [address] | | | | + + + + + + | MCHC | 32.4Comment: Testing | 32.0 - 35.5 | EXTERNAL | | | | performed at [facility], [address] | g/dL | LAB | | | | [address], | | | | | | [place] [address] | | | | + + + + + + | RDW-CV | 67.4 (H)Comment: Testing | 37 - 53 fl | EXTERNAL | | | | performed at [facility], [address] | | LAB | | | | [address], | | | | | | [place] [address] | | | | + + + + + + | Platelet | 205Comment: Testing | 150 - 400 K/uL | EXTERNAL | | | Count | performed at [facility], [address] | | LAB | | | Plasma | [address], | | | | | | [place] [address] | | | | + + + + + + | MPV | 8.1Comment: Testing | fl | EXTERNAL | | | | performed at [facility], [address] | | LAB | | | | [address], | | | | | | [place] [address] | | | | + + + + + + | Differentia | AUTOMATEDComment: | | EXTERNAL | | | l Type | Testing performed at | | LAB | | | | [facility], [address] | | | | | | [place] | | | | | | [address] | | | | + + + + + + | % Segmented | 80.6Comment: Testing | % | EXTERNAL | | | | performed at [facility], [address] | | LAB | | | Neutrophils | [address], | | | | | | [place] [address] | | | | + + + + + + | % | 11.0Comment: Testing | % | EXTERNAL | | | Lymphocytes | performed at [facility], [address] | | LAB | | | | [address], | | | | | | [place] [address] | | | | + + + + + + | % Monocytes | 6.9Comment: Testing | % | EXTERNAL | | | | performed at [facility], [address] | | LAB | | | | [address], | | | | | | [place] [address] | | | | + + + + + + | % | 0.7Comment: Testing | % | EXTERNAL | | | Eosinophils | performed at [facility], [address] | | LAB | | | | [address], | | | | | | [place] [address] | | | | + + + + + + | % Basophils | 0.8Comment: Testing | % | EXTERNAL | | | | performed at [facility], [address] | | LAB | | | | [address], | | | | | | [place] [address] | | | | + + + + + + | Absolute | 5.7Comment: Testing | 1.9 - 7.4 K/uL | EXTERNAL | | | Segmented | performed at [facility], [address] | | LAB | | | Neutrophils | [address], | | | | | | [place] [address] | | | | + + + + + + | Absolute | 0.8 (L)Comment: Testing | 1.0 - 3.9 K/uL | EXTERNAL | | | Lymphocytes | performed at [facility], [address] | | LAB | | | | [address], | | | | | | [place] [address] | | | | + + + + + + | Absolute | 0.5Comment: Testing | 0 - 0.8 K/uL | EXTERNAL | | | Monocytes | performed at [facility], [address] | | LAB | | | | [address], | | | | | | [place] [address] | | | | + + + + + + | Absolute | 0.0Comment: Testing | 0 - 0.5 K/uL | EXTERNAL | | | Eosinophils | performed at [facility], [address] | | LAB | | | | [address], | | | | | | [place] [address] | | | | + + + + + + | Absolute | 0.1Comment: Testing | 0 - 0.1 K/uL | EXTERNAL | | | Basophils | performed at [facility], [address] | | LAB | | | | [address], | | | | | | [place] [address] | | | | + + + + + + | RBC | 3+Comment: ANISONORMAL | | EXTERNAL | | | Morphology | PLT MORPHTesting | | LAB | | | | performed at [facility], [address] | | | | | | [address], | | | | | | [place] [address] | | | | | | | | | | + + + + + + + + | Specimen | + + | Blood specimen | | (specimen) | + + + +---------+ + + | Performing | Address | City/State/Zipcode | Phone Number | | Organization | | | | + +---------+ + + | EXTERNAL LAB | | | | + +---------+ + + Basic Metabolic Panel (03/17/2014 2:19 PM PDT) + + + + + + | Component | Value | Ref Range | Performed | Pathologist | | | | | At | Signature | + + + + + + | Na | 138Comment: Testing | 135 - 143 | EXTERNAL | | | | performed at [facility], [address] | mmol/L | LAB | | | | [address], | | | | | | [place] [address] | | | | + + + + + + | K | 4.2Comment: Testing | 3.5 - 4.9 | EXTERNAL | | | | performed at [facility], [address] | mmol/L | LAB | | | | [address], | | | | | | [place] [address] | | | | + + + + + + | Cl | 105Comment: Testing | 99 - 109 mmol/L | EXTERNAL | | | | performed at [facility], [address] | | LAB | | | | [address], | | | | | | [place] [address] | | | | + + + + + + | CO2 | 29Comment: Testing | 23 - 32 mmol/L | EXTERNAL | | | | performed at [facility], [address] | | LAB | | | | [address], | | | | | | [place] [address] | | | | + + + + + + | Anion Gap | 8Comment: Testing | 5 - 20 mmol/L | EXTERNAL | | | | performed at [facility], [address] | | LAB | | | | [address], | | | | | | [place] [address] | | | | + + + + + + | Glucose, | 98Comment: Testing | 65 - 99 mg/dL | EXTERNAL | | | Fasting | performed at [facility], [address] | | LAB | | | | [address], | | | | | | [place] [address] | | | | + + + + + + | BUN | 10Comment: Testing | 8 - 25 mg/dL | EXTERNAL | | | | performed at [facility], [address] | | LAB | | | | [address], | | | | | | [place] [address] | | | | + + + + + + | Creatinine | 0.85Comment: Testing | 0.50 - 1.00 | EXTERNAL | | | | performed at [facility], [address] | mg/dL | LAB | | | | [address], | | | | | | [place] [address] | | | | + + + + + + | BUN/Creatin | 12Comment: Testing | | EXTERNAL | | | ine Ratio | performed at [facility], [address] | | LAB | | | | [address], | | | | | | [place] [address] | | | | + + + + + + | Calcium | 9.6Comment: Testing | 8.5 - 10.2 | EXTERNAL | | | | performed at [facility], [address] | mg/dL | LAB | | | | [address] [facility], | | | | | | [place] [address] | | | | + + + + + + | Estimated | >60Comment: GFR <60: | mL/min/1.73m2 | EXTERNAL | | | GFR | CHRONIC KIDNEY DISEASE, | | LAB | | | | IF FOUND OVER A 3 MONTH | | | | | | PERIOD.GFR <15: KIDNEY | | | | | | FAILURE.FOR | | | | | | AMERICANS, MULTIPLY THE | | | | | | CALCULATED GFR BY | | | | | | 1.210.Testing performed | | | | | | at [facility], [address] | | | | | | [address] [facility], | | | | | | [place] [address] | | | | + + + + + + + + | Specimen | + + | Blood specimen | | (specimen) | + + + +---------+ + + | Performing | Address | City/State/Zipcode | Phone Number | | Organization | | | | + +---------+ + + | EXTERNAL LAB | | | | + +---------+ + + MRSA NAAT (03/17/2014 2:19 PM PDT) + + | Specimen | + + | | + + + + + | Narrative | Performed At | + + + | S[facility]ARES(NOSE) | EXTERNAL LAB | | Testing performed at [facility];[address] [place] [address];[place] [address] MRSA PCR | | | NEGATIVE Testing performed at | | | [facility];[address] [place] [address];[place] [address] | | + + + + +---------+ + + | Performing | Address | City/State/Zipcode | Phone Number | | Organization | | | | + +---------+ + + | EXTERNAL LAB | | | | + +---------+ + + ECG 12 lead (03/17/2014 2:01 PM PDT) + + + + + + | Component | Value | Ref Range | Performed | Pathologist | | | | | At | Signature | + + + + + + | DIAGNOSIS: | Normal sinus | | EXTERNAL | | | | rhythmNormal ECGWhen | | LAB | | | | compared with ECG of | | | | | | 13-JAN-2013 | | | | | | 14:27,Nonspecific T wave | | | | | | abnormality no longer | | | | | | evident in Inferior | | | | | | leadsConfirmed by | | | | | | Nakita La ([id number]) | | | | | | on 03/18/2014 8:42:09 PM | | | | | | | | | | + + + + + + + + | Specimen | + + | | + + + + + | Narrative | Performed At | + + + | [facility] | EXTERNAL LAB | + + + + +---------+ + + | Performing | Address | City/State/Zipcode | Phone Number | | Organization | | | | + +---------+ + + | EXTERNAL LAB | | | | + +---------+ + + documented in this encounter Visit Diagnoses Not on filedocumented in this encounter"
--- OUTSIDE RECORDS SUMMARY | ~2019-12-28 | XMS | Encounter Summary ---
Demographics + + + | Address | [address] | | | [place] [address] | + + + | Home Phone | | + + + | Preferred Language | Unknown | + + + | Marital Status | | + + + | Taoism Affiliation | Unknown | + + + | Race | Unknown | + + + | Ethnic Group | Unknown | + + + Author + + + | Author | [facility] | | | and [place] | + + + | Organization | [facility] | | | [...] [place] | | | | | [address] | | + + + + + Care Team Providers + +------+ + | Care Box Press Operator Name | Role | Phone | + +------+ + | Caitlin Chino MD | PCP | | + +------+ + Encounter Details +--------+ + + + + | Date | Type | Department | Care Team | Description | +--------+ + + + + | 03/30/ | Hospital | [facility] | Rodney Worthy | Right wrist pain | | 2019 | Encounter | [facility] | MD [address] | | | | | [address] | [facility] | | | | | [place] | [place] [address] | | | | | [address] | [phone] | | | | | [phone] | | | +--------+ + + + [...] Comments | + + +---------+ + | Not Currently | 0 Standard drinks | 0.0 | [...] + + documented as of this encounter Functional Status + + + + | Functional Status | Response | Date of Assessment | + + + + | Are you deaf or do you have serious | No | 09/04/2018 | | difficulty hearing? | | | + + + + | Are you blind or do you have serious | No | 09/04/2018 | | difficulty seeing, even when wearing | | | | glasses? | | | + + + + | Do you have serious difficulty walking or | No | 09/04/2018 | | climbing stairs? (5 years old or older) | | | + + + + | Do you have difficulty dressing or bathing? | No | 09/04/2018 | | (5 years old or older) | | | + + + + | Because of a physical, mental, or emotional | No | 09/04/2018 | | condition, do you have difficulty doing | | | | errands alone such as visiting a doctor's | | | | office or shopping? [15 years old or | | | | older)] | | | + + + + + + + + | Cognitive Status | Response | Date of Assessment | + + + + | Because of a physical, mental, or emotional | No | 09/04/2018 | | condition, do you have serious difficulty | | | | concentrating, remembering, or making | | | | decisions? (5 years old or older) | | | + + + + documented as of [...] by | 360 mL | 3 | 03/16/20 | | | albuterol-ipratropiu | nebulization 4 times | | | 19 | | | m 2.5-0.5 mg/3 mL | daily. CASIE: 12 | | | | | | SOLNIndications: | months Dx: J44.9 | | | | | | Chronic obstructive | | | | | | | pulmonary disease, | | | | | | | unspecified COPD | | | | | | | type (HCC) | | | | | | + + + +---------+ + + | | Apply to eye. | | 0 | | | | Carboxymethylcellulo | | | | | | | se Sodium (REFRESH | | | | | | | TEARS OP) | | | | | | + + + +---------+ + + | cholecalciferol | Take 2,000 Units by | | 0 | | | | (VITAMIN D-3) 1,000 | mouth Daily. | | | | | | units capsule | | | | | | + + + +---------+ + + | DULoxetine | Take 60 mg by mouth | | 0 | | | | (CYMBALTA) [address] | daily. | | | | | | capsule | | | | | | + + + +---------+ + + | folic acid 1 mg | Take 1 mg by mouth | | 0 | 07/14/19 | | | tablet | Daily. | | | 19 | | + + + +---------+ + + | levothyroxine | Take 1 tablet by | | 0 | 11/10/19 | | | (SYNTHROID) 112 mcg | mouth Daily. | | | 19 | | | tablet | | | | | | + + + +---------+ + + | pantoprazole | Take 40 mg by mouth | | 0 | 10/17/19 | | | (PROTONIX) 40 mg | [...] with | 1 each | 0 | 03/16/20 | | | Therapy Supplies | nebulizer | | | 19 | | | (NEBULIZER | medication. Dx: COPD | | | | | | COMPRESSOR) | CASIE: Lifetime. | | | | | | KITIndications: | | | | | | | Chronic obstructive | | | | | | | pulmonary disease, | | | | | | | unspecified COPD | | | | | | | type (HCC) | | | | | | + + + +---------+ + + | Respiratory | Use as directed with | 1 each | 12 | 03/16/20 | | | Therapy Supplies | nebulizer machine. | | | 19 | 0 | | (NEBULIZER/TUBING/MO | Dx: COPD CASIE: | | | | | | UTHPIECE) | lifetime | | | | | | KITIndications: | | | | | | | Chronic obstructive | | | | | | | pulmonary disease, | | | | | | | unspecified COPD | | | | | | | type (HCC) | | | | | | + + + +---------+ + + | roflumilast | Take 500 mcg by | | 0 | | | | (DALIRESP) 500 mcg | mouth daily. | | | | | | tablet | | | | | | + + + +---------+ + + | simvastatin | Take 40 mg by mouth | | 0 | | | | (ZOCOR) 40 mg tablet | nightly. | | | | | + + + +---------+ + + | TURMERIC PO | Take by mouth. | | 0 | | | + + + +---------+ + + | warfarin | Take 5 mg by mouth | | 0 | 04/28/20 | | | (COUMADIN) 5 mg | Daily. 5MG 3 times | | | 18 | | | tablet | weekly and 4 1/2 | | | | | | | tablet other days. | | | | | + + + +---------+ + + | amoxicillin | Take 250 mg by mouth | | 0 | | | | (AMOXIL) 250 mg | 3 times daily. | | | | 9 | | capsule | | | | | | + + + +---------+ + + | budesonide | Take 2 mLs by | 180 | 3 | 03/16/20 | | | (PULMICORT) 0.5 mg/2 | nebulization Daily. | vial | | 19 | 0 | | mL nebulizer | | | | | | | solutionIndications: | | | | | | | Chronic obstructive | | | | | | | pulmonary disease, | | | | | | | unspecified COPD | | | | | | | type (HCC) | | | | | | + + + +---------+ + + | furosemide (LASIX) | Take 1 tablet by | | 0 | 09/29/19 | | | 20 mg tablet | mouth Daily. | | | 19 | 9 | + + + +---------+ + + | loperamide | Take 2 mg by mouth | | 0 | 06/22/19 | | | (IMODIUM) 2 mg | as needed. | | | 19 | 9 | | capsule | | | | | | + + + +---------+ + + | methotrexate 2.5 | take 8 tablets by | 32 | 0 | 03/08/20 | | | mg | mouth every week | tablet | | 19 | 9 | | tabletIndications: | | | | | | | Rheumatoid | | | | | | | arthritis, involving | | | | | | | unspecified site, | | | | | | | unspecified | | | | | | | rheumatoid factor | | | | | | | presence (HCC) | | | | | | + + + +---------+ + + | metoprolol | Take 1 tablet by | | 0 | 12/17/19 | | | succinate | mouth daily. | | | 19 | 0 | | (TOPROL-XL) 25 mg 24 | | | | | | | hr tablet | | | | | | [...] mEq by mouth | | 0 | | | | (KLOR-CON M20) 20 | 2 (two) times daily | | | | 9 | | mEq ER tablet | with meals. | | | | | + + + +---------+ + + | pseudoePHEDrine | Take 60 mg by mouth | | 0 | | | | (SUDAFED) 60 MG | every 4 (four) hours | | | | 9 | | tablet | as needed for | | | | | | | Congestion. | | | | | + + + +---------+ + + | SUDOGEST 60 MG | take 1 tablet by | | 0 | 12/12/19 | | | tablet | mouth three times a | | | 19 | 9 | | | day if needed for | | | | | | | sinus congestion | | | | | + + + +---------+ + + | tiotropium | Inhale 18 mcg into | | 0 | | | | (SPIRIVA) 18 mcg | the lungs Daily. | | | | 0 | | inhalation capsule | | | | | | + + + +---------+ + + documented as of this encounter Plan of Treatment +--------+---------+ + + + | Date | Type | Specialty | Care Team | Description | +--------+---------+ + + + | 03/06/ | Office | Rheumatology | Santosh Sumner, | | | 2019 | Visit | | [address] | | | | | | [address] [address] | | | | | | [place] [address] | | | | | | [phone] | | | | | | | | +--------+---------+ + + + documented as of this encounter Procedures + +--------+ + + + | Procedure Name | Priori | Date/Time | Associated Diagnosis | Comments | | | ty | | | | + +--------+ + + + | XR WRIST RIGHT 3 + | Routin | 03/30/2019 | Right wrist pain | Results for this | | VW | e | 10:05 AM | | procedure are in the | | | | PDT | | results section. | + +--------+ + + + documented in this encounter Results XR Wrist Right 3 + Vw (03/30/2019 10:05 AM PDT) + + | Specimen | + + | | + + + + + | Impressions | Performed At | + + + | Trapezium bone not well seen and may be flattened or absent. | [facility] | | Degenerative changes. Dictated and Signed by: Matheus Kapadia MD | | | Electronically signed: 03/30/2019 11:32 AM | | + + + + + + | Narrative | Performed At | + + + | XR WRIST RIGHT 3 + VW 03/30/2019 10:05 AM HISTORY: RIGHT WRIST | [facility] | | PAIN. COMPARISON: None. FINDINGS: The trapezium bone is not | | | well seen and may be flattened or absent. Moderate degenerative | | | changes are noted of the radiocarpal joint. There are mild | | | degenerative changes of the distal radioulnar joint. Degenerative | | | cysts are observed of the carpal bones. Bone mineralization is | | | normal. Soft tissues are unremarkable. | | + + + + + | Procedure Note | + + | Fabián, Rad Results In - 03/30/2019 11:35 AM PDT XR WRIST RIGHT 3 + VW 03/30/2019 10:05 | | AMHISTORY: RIGHT WRIST PAIN.COMPARISON: None.FINDINGS:The trapezium bone is not well | | seen and may be flattened or absent. Moderatedegenerative changes are noted of the | | radiocarpal joint. There are milddegenerative changes of the distal radioulnar joint. | | Degenerative cysts areobserved of the carpal bones. Bone mineralization is normal. Soft | | tissues areunremarkable.IMPRESSION: Trapezium bone not well seen and may be flattened or | | absent.Degenerative changes.Dictated and Signed by: Matheus Kapadia MD Electronically | | signed: 03/30/2019 11:32 AM | |degenerative changes are noted of the radiocarpal joint. There are mild | |degenerative changes of the distal radioulnar joint. Degenerative cysts are | |observed of the carpal bones. Bone mineralization is normal. Soft tissues are | |unremarkable. | | | |IMPRESSION: | |Trapezium bone not well seen and may be flattened or absent. | | | |Degenerative changes. | | | |Dictated and Signed by: Matheus Kapadia MD | | Electronically signed: 03/30/2019 11:32 AM | + + + +---------+ + + | Performing | Address | City/State/Zipcode | Phone Number | | Organization | | | | + +---------+ + + | [facility] | | | | + +---------+ + + documented in this encounter Visit Diagnoses + + | Diagnosis | + + | Right wrist pain Pain in joint, forearm | + + documented in this encounter"
--- OUTSIDE RECORDS SUMMARY | ~2019-12-28 | XMS | Encounter Summary ---
Demographics + + + | Address | [address] | | | [place] [address] | + + + | Home Phone | | + + + | Preferred Language | Unknown | + + + | Marital Status | | + + + | Pentecostalism Affiliation | Unknown | + + + | Race | Unknown | + + + | Ethnic Group | Unknown | + + + Author + + + | Author | [facility] | | | and [place] | + + + | Organization | [facility] | | | [...] [address] | | | | | [address] | | + + + + + Care Team Providers + +------+ + | Care Mechanical Spreader Operator Name | Role | Phone | + +------+ + | Davis Ivan MD | PCP | | + +------+ + Reason for Visit + +--------+ + | Reason | Onset | Comments | | | Date | | + +--------+ + | Medication Refill | 01/15/ | | | | 2014 | | + +--------+ + Encounter Details +--------+--------+ + + + | Date | Type | Department | Care Team | Description | +--------+--------+ + + + | 01/15/ | Refill | [facility] | Vivian, | Medication Refill | | 2014 | | MED CTR MED[facility] | Lokesh Gramajo MD [address] | | | | | [facility] [address] | [facility] | | | | | [place] | [address] | | | | | [place] [address] | [id number] | | | | | [phone] | | | +--------+--------+ + + + Social History + + [...] Rheumatology | Santosh Sumner, | | | 2020 | Visit | | [address] | | | | | | [facility] | | | | | | [place] [address] | | | | | | [phone] | | | | | | | | +--------+---------+ + + + documented as of this encounter Visit Diagnoses + + | Diagnosis | + + | Gastroesophageal reflux disease without esophagitis - Primary Esophageal reflux | + + documented in this encounter"
--- OUTSIDE RECORDS SUMMARY | ~2019-12-28 | XMS | Encounter Summary ---
Demographics + + + | Address | [address] | | | [place] [address] | + + + | Home Phone | | + + + | Preferred Language | Unknown | + + + | Marital Status | | + + + | Restorationist Affiliation | Unknown | + + + | Race | Unknown | + + + | Ethnic Group | Unknown | + + + Author + + + | Author | [facility] | | | and [place] | + + + | Organization | [facility] | | | and [...] [place] | | | | | [address] | | + + + + + Care Team Providers + +------+ + | Care Claims Customer Service Representative Name | Role | Phone | + +------+ + | Caitlin Chino MD | PCP | | + +------+ + Encounter Details +--------+ + + + + | Date | Type | Department | Care Team | Description | +--------+ + + + + | 09/06/ | Imaging | [facility] | Provider, | | | 2019 | Exam | MED CTR EXTERNAL | MD [address] | | | | | IMAGING [address] | [place] | | | | | [address] | [place] [address] | | | | | [place] [address] | | | | | | [phone] | | | +--------+ + + + [...] | 2019 | Visit | | [address] | | | | | | [place] | | | | | | [place] [address] | | | | | | [phone] | | | | | | | | +--------+---------+ + + + documented as of this encounter Procedures + +--------+ + + + | Procedure Name | Priori | Date/Time | Associated Diagnosis | Comments | | | ty | | | | + +--------+ + + + | MRI LUMBAR SPINE WO | Routin | 03/22/2018 | | Results for this | | CONTRAST | e | 3:05 PM | | procedure are in the | | | | PDT | | results section. | + +--------+ + + + documented in this encounter Results MRI Lumbar Spine wo Contrast (03/22/2018 3:05 PM PDT) + + | Specimen | + + | | + + + + + | Narrative | Performed At | + + + | External films for comparison only | [facility] | | | | | No results will be in the chart. | | + + + + +---------+ + + | Performing | Address | City/State/Zipcode | Phone Number | | Organization | | | | + +---------+ + + | [facility] | | | | + +---------+ + + documented in this encounter Visit Diagnoses Not on filedocumented in this encounter"
--- OUTSIDE RECORDS SUMMARY | ~2019-12-28 | XMS | Encounter Summary ---
Demographics + + + | Address | [address] | | | [place] [address] | + + + | Home Phone | | + + + | Preferred Language | Unknown | + + + | Marital Status | | + + + | Scientology Affiliation | Unknown | + + + | Race | Unknown | + + + | Ethnic Group | Unknown | + + + Author + + + | Author | [facility] | | | and [place] | + + + | Organization | [facility] | | | and [...] [place] | | | | | [address] | | + + + + + Care Team Providers + +------+ + | Care Plastic Extruding Machine Operator Name | Role | Phone | + +------+ + | Davis Ivan MD | PCP | | + +------+ + Reason for Referral Diagnostic/Screening (Routine) +--------+--------+ + + + + | Status | Reason | Specialty | Diagnoses / | Referred By | Referred To | | | | | Procedures | Contact | Contact | +--------+--------+ + + + + | Closed | | Radiology | Diagnoses | | [address] | | | | | Pulmonary | [place], | [address] | | | | | nodule | Ayana B, | [place], | | | | | Procedures | MD [address] | [place] [address] | | | | | CT Chest wo | [address] | Phone: | | | | | Contrast | [place], | [phone] | | | | | | [place] [address] | Fax: | | | | | | | [phone] | +--------+--------+ + + + + Encounter Details +--------+ + + + + | Date | Type | Department | Care Team | Description | +--------+ + + + + | 06/09/ | Hospital | [facility] | [place], | Pulmonary nodule | | 2013 | Encounter | MED CTR XRAY [address] | Ayana Looney MD | | | | | [place] | | | | | | [place] [address] | | | | | | [phone] | | | +--------+ + + + [...] +---------+--------+ + documented as of this encounter Plan of Treatment +--------+---------+ + + + | Date | Type | Specialty | Care Team | Description | +--------+---------+ + + + | 03/06/ | Office | Rheumatology | Santosh Sumner, | | | 2019 | Visit | | [address] | | | | | | [facility] | | | | | | [place] [address] | | | | | | [phone] | | | | | | | | +--------+---------+ + + + documented as of this encounter Procedures + +--------+ + + + | Procedure Name | Priori | Date/Time | Associated Diagnosis | Comments | | | ty | | | | + +--------+ + + + | CT CHEST WO CONTRAST | Routin | 06/09/2013 | Pulmonary nodule | Results for this | | | e | 3:45 PM | | procedure are in the | | | | PST | | results section. | + +--------+ + + + | XR CERVICAL SPINE 2 | Routin | 06/09/2013 | | Results for this | | OR 3 VIEWS | e | 2:42 PM | | procedure are in the | | | | PST | | results section. | + +--------+ + + + documented in this encounter Results CT Chest wo Contrast (06/09/2013 3:45 PM PST) + + | Specimen | + + | | + + + + + | Narrative | Performed At | + + + | [facility] | [facility] | | Department [address] [facility] [place] | [facility] | | [ rep ct [address]] [ rep ct [facility] | | st zip] Signed | - IMAGING | | | | | Patient Name: THEA CARMONA Physician: | | | OFFE. : 1945 Age: 68 Sex: F Unit #: [id number] | | | Exam Date: 06/09/13 Location: [facility] | | | Report #: [id number] Page: | | | %(RAD)RES..mtdd.print.filter("pg") of %(RAD) | | | RES..mtdd.print.filter("tpg") | | | | | | Accession Number: [id number] | | | CT CHEST WITHOUT CONTRAST, 06/09/2013 CLINICAL HISTORY: | | | FOLLOWUP NODULE IN THE SUPERIOR SEGMENT OF THE RIGHT LOWER LOBE. | | | TECHNIQUE: Axial images were obtained from thoracic inlet to | | | upper abdomen without the use of contrast. | | | COMPARISON: 01/28/2013 scan from [facility]. FINDINGS: A | | | partially cavitary mass is again seen in the superior segment of the | | | right lower lobe. The cavitary component has decreased in size, | | | while the solid portions of the mass have increased in prominence, | | | now measuring 1.5 x 1.5 x 3.0 cm where previous measurements were 1.2 | | | x 1.2 x 2.5 cm. Margins remain spiculated. Lung | | | volumes are normal and overall lung architecture is only mildly | | | emphysematous in pattern. A tiny , less than 3 mm nodule is | | | questioned in the right middle lobe (image 58, series 4). This is | | | not seen on the prior study. A 2nd 3 mm nodule on the major | | | fissure of the left lung (image 60, series 4) is stable. No other | | | pulmonary nodularity or mass is present. There is no area of | | | airspace consolidation. No effusion is present. Bronchi are of | | | normal caliber. No pathologic appearing mediastinal or | | | hilar adenopathy is seen. Aorta and pulmonary artery are of | | | normal caliber. Coronary calcifications are seen without other | | | cardiac abnormality. In the limited portions of the abdomen | | | included on this exam, cholecystectomy changes are noted without other | | | findings. There are no bony abnormalities. | | | IMPRESSION: 1. COMPLEX, CAVITARY MASS IN THE SUPERIOR | | | SEGMENT OF THE RIGHT LOWER LOBE. THIS HAS SUSPICIOUS MORPHOLOGY, | | | AND HAS DISPLAYED SUSPICIOUS BEHAVIOR IN THIS INITIAL 6-MONTH | | | FOLLOWUP, WITH A MODEST INCREASE IN SIZE. REPEAT PET EVALUATION OR | | | BIOPSY WOULD BE CONSIDERATIONS. Dictated Date/Time: | | | 06/09/2013 15:45 Transcribed Date/Time: 06/09/2013 16:14 | | | Assistant Coach: <<Signature on File>> | | | | | | Jose Elias Leal MD06/09/13 1702 <Electronically signed by | | | Jose Elias Leal MD> Jose Elias Leal MD 06/09/13 | | | 1545 Assistant Coach: maniaTV [id number]/09/14 1614 | | | Ayana Taylor MD | | + + + + + + + + | Performing | Address | City/State/Zipcode | Phone Number | | Organization | | | | + + + + + | [facility] | [address] | [place], [place] | [phone] | | [facility] | | [address] | | | - IMAGING | | | | + + + + + XR Cervical Spine 3 Vws or Less (06/09/2013 2:42 PM PST) + + | Specimen | + + | | + + + + + | Narrative | Performed At | + + + | [facility] | [facility] | | Department [address] [place] [place] | [facility] | | [ rep ct [address]] [ rep ct [facility] | | st zip] Signed | - IMAGING | | | | | Patient Name: THEA CARMONA Colette Physician: | | | 20 : 1945 Age: 68 Sex: F Unit #: [id number] | | | Exam Date: 06/09/13 Location: [facility] | | | Report #: [id number] Page: | | | %(RAD)RES..mtdd.print.filter("pg") of %(RAD) | | | RES..mtdd.print.filter("tpg") | | | | | | Accession Number: [id number] | | | CERVICAL SPINE CLINICAL HISTORY: NECK PAIN. | | | COMPARISON: None. FINDINGS: Frontal and lateral views | | | of the cervical spine. Fusion hardware is in place anteriorly and | | | posteriorly. The anterior hardware is in place at C4, C5, and C6. | | | The plate appears grossly intact. Interbody grafts are in place | | | at the intervening disk spaces. There is posterior fusion hardware | | | at C4-5. There is spondylolisthesis of C4 in relation to C5 which | | | appears to be by about 6 mm. There is abnormal alignment of the | | | articular pillars of C4 in relation to C5 at least on the left side. | | | This may account for the spondylolisthesis. There appears to be a | | | component of anterolisthesis of C5 in relation to C6 but the amount | | | is difficult to gauge. There is a heterogeneous appearance to the | | | bone laterally at the operative levels which is likely in part due to | | | bone graft material. Alignment of C2-3 and C3-4 is unremarkable. | | | The C6 vertebral body is not well seen. There appears to be disk | | | collapse between it and C7. No pre-cervical soft tissue thickening. | | | The visible lung apices are clear. IMPRESSION: | | | 1. 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 THE CHRONICITY AND | | | STABILITY OF THIS CANNOT BE DETERMINED WITHOUT COMPARISONS WHICH | | | WERE NOT MADE AVAILABLE AT THE TIME OF INTERPRETATION. | | | COMMENT: Correlation with prior imaging studies to determine stability | | | of the alignment which would help suggest whether or not the | | | stability and integrity of the hardware has been maintained. | | | Dictated Date/Time: 06/09/2013 14:42 Transcribed | | | Date/Time: 06/09/2013 15:09 Assistant Coach: VIANCA | | | <<Signature on File>> | | | Ronak | | | Abilio Heath MD06/10/13 1057 <Electronically signed by Ronak Knox | | | Kumar HESS> Ronak Heath MD 06/09/13 1442 | | | Assistant Coach: maniaTV Pblqxsneorfwh34/09/14 1509 | | | Silviano Cabrera Jr, MD | | + + + + + + + + | Performing | Address | City/State/Zipcode | Phone Number | | Organization | | | | + + + + + | [facility] | [address] | [place] | [phone] | | [facility] | | [address] | | | - IMAGING | | | | + + + + + documented in this encounter Visit Diagnoses + + | Diagnosis | + + | Pulmonary nodule Solitary pulmonary nodule | + + documented in this encounter
--- OUTSIDE RECORDS SUMMARY | ~2019-12-28 | XMS | Encounter Summary ---
Demographics + + + | Address | [address] | | | [place] [address] | + + + | Home Phone | | + + + | Preferred Language | Unknown | + + + | Marital Status | | + + + | Rastafarian Affiliation | Unknown | + + + | Race | Unknown | + + + | Ethnic Group | Unknown | + + + Author + + + | Author | [facility] | | | and [place] | + + + | Organization | [facility] [...] [place] | | | | | [address] | | + + + + + Care Team Providers + +------+ + | Care Radiology Transcriptionist Name | Role | Phone | + +------+ + | Lobo Gilbert MD | PCP | | + +------+ [...] | | | | | | Giuliano Mares MD | | | | | 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[place], | | | | | hand, | | [place] [address] | | | | | unspecified | | Phone: | | | | | osteoarthrit | | [phone] | | | | | is type | | Fax: | | | | | Osteoarthrit | | [phone] | | | | | is of [...] | | | | | | | [place] REPAIR | | | | | | | INTERCARP/CA | | | | | | | RP-METACARP | | | | | | | JT | | | +--------+--------+ + + + + Encounter Details +--------+---------+ + + + | Date | Type | Department | Care Team | Description | +--------+---------+ + + + | 03/20/ | Surgery | [facility] | Giuliano Padilla, | Left [facility] | | 2014 | | [facility] | MD [facility] | Arthroplasty | | | | [address] | [place] | | | | | [place] | [address] | | | | | [address] | | | | | | [phone] | | | +--------+---------+ + + + Social History [...] + + + | Blood Pressure | 164/73 | 03/20/2015 10:00 AM | | | | | PDT | | + + + + + | Pulse | 72 | 03/20/2015 10:00 AM | | | | | PDT | | + + + + + | Temperature | 36.5 C (97.7 F) | 03/20/2015 10:00 AM | | | | | PDT | | + + + + + | Respiratory Rate | 16 | 03/20/2015 10:00 AM | | | | | PDT | | + + + + + | Oxygen Saturation | 96% | 03/20/2015 10:00 AM | | | | | PDT | | + + + + + | Inhaled Oxygen | - | - | | | Concentration | | | | + + + + + | Weight | 72.6 kg (160 lb) | 03/20/2015 10:00 AM | | | | | PDT | | + + + + + | Height | 157.5 cm (5' 2") | 03/20/2015 10:00 AM | | | | | PDT | | + + + + + | Body Mass Index | 29.26 | 03/20/2015 10:00 AM | | | | | PDT | | + + + + + documented in this encounter Discharge Instructions Instructions Giuliano Padilla MD - 03/20/2015Elevate hand and wiggle fingers as much as pos sible to minimize swelling Keep dressings intact and dry Follow up next week for dressing changes documented in this encounter Medications at Time [...] + + + +---------+ + + | aclidinium | Inhale 1 puff into | 1 | 5 | 10/12/19 | | | (COLTON SAEED) | the lungs 2 times | Inhaler | | 15 | 6 | | 400 mcg/puff inhaler | daily. | | | | | + + [...] + + + +---------+ + + | cloNIDine | Take 0.2 mg by mouth | | 0 | 09/06/19 | | | (CATAPRES) 0.1 mg | Daily. | | | 15 | 8 | | tablet | | | | [...] mg by mouth | | 0 | 09/02/19 | | | 2 mg tablet | nightly as needed. | | | 15 | 8 | + + + +---------+ + + | ferrous sulfate | Take 28 mg by mouth | | 0 | | | | (IRON) 28 MG TABS | Daily. | | | | 7 | + + + +---------+ + + | Fexofenadine HCl | Take by mouth | | 0 | | | | (ETHAN ALLERGY PO) | Daily. | | | | 8 | + + + +---------+ + + | | Inhale 1 puff into | 1 each | 11 | 03/08/20 | | | fluticasone-vilanter | the lungs Daily. | | | 15 | 7 | | ol (BREO ELLIPTA) | | | | | | | 200-25 mcg/puff | | | | | | | inhaler | | | | | | + + + +---------+ + + | folic acid 1 mg | Take 1 mg by mouth | | 0 | | | | tablet | Daily. | | | | 7 | + + + +---------+ + + | guaiFENesin | Take 1,200 mg by | | 0 | | | | (MUCINEX) 600 mg 12 | mouth as needed. | | | | 7 | | hr tablet | | | | | | + + + +---------+ + + | | Take 15 mLs by mouth | | 0 | | | | HYDROcodone-acetamin | 4 times daily as | | | | 7 | | ophen (HYCET) | needed for Pain. | | | | | | 7.5-325 mg/15 mL | | | | | | | liquid | | | | | | + [...] + | LORazepam (ATIVAN) | Take 1 mg by mouth | | 0 | | | | 1 mg tablet | every 6 hours as | | | | 8 | | | needed for Anxiety. | | | | | + + [...] +---------+ + + | omeprazole | Take 1 capsule by | 30 | 11 | 01/16/20 | | | (PRILOSEC) 40 MG | mouth every morning | capsule | | 15 | 6 | | capsuleIndications: | (before breakfast). | | | | | | Gastroesophageal | | | | | | | reflux disease | | | | | | | without esophagitis | | | | | | + + + +---------+ + + | oxyCODONE (OXY-IR) | Take 1 capsule by | 75 | 0 | 03/20/20 | | | 5 MG capsule | mouth every 4 hours | capsule | | 15 | 5 | | | as needed (take one | | | | | | | to two every 4 hours | | | | | | | prn pain) for up to | | | | | | | 10 days. Don't mix | | | | | | | with alcohol. Don't | | | | | | | take if sedated or | | | | | | | confused | | | | | + + + +---------+ + + | predniSONE | Take 10 mg by mouth | | 0 | | | | (DELTASONE) 5 mg | Daily. | | | | 6 | | tablet | | | | | | + + + +---------+ + + | ranitidine | Take 1 tablet by | 60 | 3 | 03/12/20 | | | (ZANTAC) 150 mg | mouth 2 times daily. | tablet | | 15 | 6 | | tabletIndications: | | | | | | | Gastroesophageal | | | | | | | reflux disease | | | | | | | without esophagitis | | | | | | + [...] + + documented as of this encounter H&P Notes Giuliano Padilla MD - 03/20/2015 11:53 AM PDTNo change iuliano Padilla MD - 03/18/2015 7:51 PM PDT History of present illness: Thea is a 69 y.o. female who presents with a chief complaint l eft thumb pain Patient had a left carpometacarpal prosthesis with trapezial excision by Dr. boswell in J anuary 2011 for the diagnosis of [id number] first CMC arthritis She also has rheumatoid arthritis and is on low-dose prednisone and methotrexate The operation was not very successful and she had early on instability of the prosthesis kierra mares is here for another opinion regarding management of this She has other health problems including emphysema and lung cancer status post lobectomy las t year She also had back surgery last year so she's had an awful lot of encounters with the health care system in the last 2 years The left hand hurts worse at the thumb basal joint than it had preop -the joint is now unst able and it constantly pops with use and it affects her trench pipe layer She wishes to pursue surgical options Past Medical History Diagnosis Date COPD (chronic obstructive pulmonary disease) ([facility]) on albuterol Spondylolisthesis of cervical region Spinal stenosis has tried cortisone injections Osteoporosis Depression Pneumonia 2008 hospitalized 5 days Rheumatoid arthritis(714.0) ([facility]) 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 Past Surgical History Procedure Laterality Date Hysterectomy Cholecystectomy Cervical spine surgery 2012 Bladder suspension Shoulder surgery Thumb surgery Shoulder surgery right shoulder Tongue surgery benign per pt Lung biopsy 07/21/13 right lower lobe Lobectomy 09/16/13 right lower lobe Back surgery 03/2014 Bronchoscopy 07/11/2014 EBUS with right hilar LN biopsy, [facility] Dr. Sierra Tunneled venous port placement N/A 07/28/2014 Procedure: Port Placement; Surgeon: Chalino Chiu MD; Location: [facility] MAIN OR Colonoscopy 06/2014 Endoscopy No Known Allergies Current Outpatient Prescriptions on File Prior to Visit Medication Sig Dispense Refill aclidinium (TUDORZA PRESSAIR) 400 mcg/puff inhaler Inhale 1 puff into the lungs 2 times daily. 1 Inhaler 5 albuterol 2.5 mg/3 mL nebulizer solution Take 2.5 mg by nebulization every 6 hours as n eeded. albuterol 90 mcg/puff inhaler Inhale 2 puffs into the lungs every 6 hours as needed for Wheezing or Shortness of Breath. 1 Inhaler PRN aspirin 81 MG tablet Take 81 mg by mouth Daily. benzonatate (TESSALON PERLES) 100 mg capsule Take 1 capsule by mouth 3 times daily as n eeded for Cough. 42 capsule 2 cholecalciferol (VITAMIN D-3) 1,000 units capsule Take 1,000 Units by mouth Daily. cloNIDine (CATAPRES) 0.1 mg tablet Take by mouth Daily. clopidogrel (PLAVIX) 75 mg tablet Take 75 mg by mouth Daily. diazepam (VALIUM) 2 mg tablet nightly as needed. 0 ferrous sulfate (IRON) 28 MG TABS Take 28 mg by mouth Daily. Fexofenadine HCl (ETHAN ALLERGY PO) Take by mouth Daily. fluticasone-vilanterol (BREO ELLIPTA) 200-25 mcg/puff inhaler Inhale 1 puff into the dipti ngs Daily. 1 each 11 folic acid 1 mg tablet Take 1 mg by mouth Daily. guaiFENesin (MUCINEX) 600 mg 12 hr tablet Take 1,200 mg by mouth as needed. HYDROcodone-acetaminophen (HYCET) 7.5-325 mg/15 mL liquid Take 15 mLs by mouth 4 times daily as needed for Pain. HYDROmorphone (DILAUDID) 4 MG tablet Take 4 mg by mouth every 6 hours as needed. levothyroxine (SYNTHROID) 100 mcg tablet Take 75 mcg by mouth every morning (before deshaun akfast). LORazepam (ATIVAN) 1 mg tablet Take 1 mg by mouth every 6 hours as needed for Anxiety. Magnesium 100 MG CAPS Take by mouth Daily. methotrexate 2.5 mg tablet Take 25 mg by mouth Once a week. omeprazole (PRILOSEC) 40 MG capsule Take 1 capsule by mouth every morning (before break fast). 30 capsule 11 predniSONE (DELTASONE) 5 mg tablet Take 10 mg by mouth Daily. ranitidine (ZANTAC) 150 mg tablet Take 1 tablet by mouth 2 times daily. 60 tablet 3 Respiratory Therapy Supplies [facility] ResMed S9 auto CPAP 5-9 cm H2O. Heater and Humidifier . All necessary supplies. AHI 11.6. Diagnosis Code(s)327.23, also has co morbid hypertension , history of stroke. Length of Need 99 months. Please send order to [facility]. 1 each 99 simvastatin (ZOCOR) 40 mg tablet Take 40 mg by mouth nightly. venlafaxine (EFFEXOR) 75 MG tablet Take 37.5 mg by mouth 2 times daily. No current facility-administered medications on file prior to visit. 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 Social History Main Topics Smoking status: Former Smoker -- 1.00 packs/day for 50 years Types: Cigarettes Quit date: 08/21/2012 Smokeless tobacco: Never Used Comment: using e cigarettes Alcohol Use: No Comment: pt states she was an alcoholic for 40 years but quit in 05/2012 Drug Use: No Comment: marijuana in the remote past Sexual Activity: Not on file Other Topics Concern Not on file Social History Narrative Lives: in [place]: alone Grew up: in [place] Has previously lived in: [place] Exposure to toxic chemicals: no Exposure to asbestos: no Exposure to tuberculosis: no Has had a PPD or Quantiferon before: no Has pets at home: cat and a dog Has ever owned birds: yes, 5 years ago Other animal exposures: no Hobbies: used to jaja, crossword puzzles, walking her dog Review of Systems This has been reviewed. All other entries are negative except for those checked below. Eyes: [] Double vision [x] Glasses/contacts [] Failing vision Ear/Nose/Throat: [] Frequent Colds [] Sinus Disease [] Nose obstruction [] Sneezing Spells [] Change in taste [x] Artificial teeth [] Ears ringing [] Ear pain [] Hearing loss [] Teeth problems [x] Hoarseness [] Neck swelling [] Sore throat [x] Congestion [] Nosebleeds [] Nasal allergies Respiratory: [x] Asthma/Wheezing [] Pneumonia [x] Night sweats [x] Shortness of breath [] Chronic cough [] Coughing up blood [] Exposure to tuberculosis Cardiovascular: [] Heart Problems [x] Hypertension [] Heart murmur [] Palpitations [] Rheumatic fever [x] Phlebitis [] Chest pain [x] Ankle swelling [x] Leg cramps [] Rac ing heart [] Skipping beats [] Blood clots Gastrointestinal: [] Abdominal pain [x] Heartburn [] Blood from rectum [x] Colitis [] Gallbladder problems [] Troub le swallowing [x] Bloated stomach [] Change in stools [] Vomiting blood [x] Nausea [x] Hemorrhoids [] Jaundice [] Hepatitis [] Diarrhea [] Constipation [x] Diverticulitis Urinary Tract: [] Painful urination [] Kidney Stones [x] Any urine leakage [x] Weak urine stream [x] Night urination [] Urine infections [] Bedwetting [] Blood in urine Skin: [] Skin rashes [] Itching/Burning [x] Skin bruises easi ly [] Artificial tanning [] Skin cancer [x] Hair loss [] Changes in moles Musculoskeletal: [] Physical handicaps [] Back or shoulder pain []Rheumatoid disease [] Osteoarthritis [] Joint pain [] Joint swelling []Gout [] Leg cramps at night Neurological: [] Headaches [] Seizures [x] Stroke/TIA [] Faintness [] Tremors [] Numbness [] Dizziness [] Changes in handwriting [x] Memory loss [] Shooting pains Psychiatric: [x] Depression [] Suicidal thoughts [x] Sleep pattern changes [x] Appetite changes [] Recent counseling [x] Nervousness/anxiety [] Physical violence [] Marital problems Endocrine: [x] Thyroid [] Diabetes Systemic: [x]Weight loss/gain (over 10 lbs) [x]Fever/chills [x]Fatigue [x] Sleeping Difficulties [] Speech change [] Voice change Filed Vitals: 03/14/15 1320 Temp: 36.2 C (97.1 F) PainSc: 2 PainLoc: Hand Estimated body mass index is 28.71 kg/(m^2) as calculated from the following: Height as of this encounter: 1.575 m (5' 2"). Weight as of this encounter: 71.215 kg (157 lb). BP 122/84 P 98 R 20 T 98.9 Physical examination:Patient is alert and oriented and in no acute distress. 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 We had a long discussion of the options for treatment of this She can't live with it the way it is and strongly pursues of surgical treatment I think the simplest and least invasive surgery is to remove the prosthesis and stabilize h er thumb with a mini tight rope The inherent risks of this discussed and reasonable expectations for the recovery outlined The alternative technique is to use FCR as an interpositional arthroplasty - the pros and c ons of this options discussed at length She very much wishes to pursue the first option with stabilization with a mini tightrope She stopped plavix last week and she is on only 5mg prednisone currently This turned into a preop visit Labs and ekg pending Formal history and physical to follow The above note was dictated using Baton voice recognition software. It may have not been p roofread in entirety. Minor errors in grammar may occur. documented in this en counter Miscellaneous Notes Op Note - Giuliano Padilla MD - 03/20/2015 1:35 PM PDT [address] [address] OPERATIVE REPORT GIULIANO PADILLA MD Patient: THEA CARMONA Admitting: GIULIANO PADILLA MR #: [id number] LOC: PT TYPE: Adm Date: 03/20/2015 : 1945 DATE OF : 1945 TODAY'S DATE: 03/20/2015 PREOPERATIVE DIAGNOSIS: Failed left first carpometacarpal joint hemiarthroplasty. POSTOPERATIVE DIAGNOSIS: Failed left first carpometacarpal joint hemiarthroplasty. PROCEDURE PERFORMED: Removal hemiarthroplasty implant with the first CMC arthroplasty, le ft upper extremity, with mini tight rope suspension stabilization. SURGEON: Giuliano Padilla MD PROCEDURE IN DETAIL: After informed consent was obtained, the patient taken to the operat ing room, underwent axillary block anesthesia. She received 1 gram of Ancef IV prophylaxis . After sterile prep and drape, appropriate timeout and surgical safety checklist completi on, the limb was exsanguinated and an upper arm tourniquet inflated to 250 mmHg. An incis ion was started and the block was not completely set up yet, so we used 0.5 percent Marcain e plain for local infiltration to supplement the block. The basal joint implant was sublux ated and very prominent under the skin and so she had very thin skin. It was off of the underlying capsule and the capsule was opened up and the implant removed under dir ect vision. Subperiosteal capsular flaps were then elevated off the base of the metatarsal to identify the starting position of the mini-tight rope. Another incision was made over the dorsal ul tami aspect of the base of the second metacarpal and branches of the sensory nerves were collette ntified and protected. The periosteum was incised and the C clamp targeting guide was use d to position appropriate location at the base of the second metacarpal and the guide pin w as started, initiating a cm distal to the joint from the thumb. The guide pin was passed a nd a suture button was passed through this hole. A cortical button was placed at the seco nd metacarpal base and a couple of suture throws were placed just for initial stabilization . C-arm was then brought in and there was still a couple of bony fragments of previous trape zium excision that were removed, and the thumb was held in the appropriate position as we t ensioned the button, taking care to not over tighten the construct, but it felt nice and st able with minimal proximal migration. Final images were taken and the wound was thoroughly irrigated and then meticulous care to closing the capsule with 3-0 Vicryl interrupted sutures was undertaken. The radial artery was identified and protected both from the onset of exposure and at the time of wound clos ure. The cortical button over the second metacarpal was positioned under periosteum as we ll as the knots of the FiberWire suture and closed with 3-0 Vicryl, taking care to avoid th e sensory nerve branches. The wound was then closed with 4-0 nylon. Sterile dressings wer e applied and she was placed in a thumb spica wrist splint, leaving the thumb IP joint irina e for early excursion of the thumb tendons. ESTIMATED BLOOD LOSS: 3 mL. Needle and sponge count correct, as reported by the nursing staff. GIULIANO PADILLA MD Dictated by GIULIANO PADILLA MD 03/20/2015 13:35:56 Transcribed on 03/20/2015 20:30:53 by [facility] job# [id number] Confirmation #: [id number] cc: LOBO GILBERT MD 8:2 2 AM PDTBrief Op Note - Giuliano Padilla MD - 03/20/2015 1:29 PM PDT Brief Operative Note Thea Degrootley 69 y.o. female 1945 [id number] Proc. Date 03/20/2015 Preop Dx Osteoarthritis of left hand, unspecified osteoarthritis type [M19.042] Postop Dx same Procedure Left 1st C.M.C. Arthroplasty Anesthesia General Surgeon Giuliano Padilla MD - Primary Liaison Inspection Laboratory Assistant EBL less than 50 mL Findings Subluxated hemiarthroplasty implant, basal joint removed and joint stabilized wit h arthrex minitightrope Complications none Specimens * No specimens in log * Drains Electronically signed by: Giuliano Padilla MD 03/20/2015 13:29 [facility] HEALTHElectronically signed by Giuliano Padilla MD at 03/02 1:29 PM PDTdocumented in this encounter Plan of Treatment +--------+---------+ + + + | Date | Type | Specialty | Care Team | Description | +--------+---------+ + + + | 03/06/ | Office | Rheumatology | Santosh Sumner, | | | 2019 | Visit | | [address] | | | | | | [facility] | | | | | | [place] [address] | | | | | | [phone] | | | | | | | | +--------+---------+ + + + documented as of this encounter Procedures + +--------+ + + + | Procedure Name | Priori | Date/Time | Associated Diagnosis | Comments | | | ty | | | | + +--------+ + + + | XR HAND LEFT 1 VW | Routin | 03/20/2015 | | Results for this | | LIMITED | e | 1:23 PM | | procedure are in the | | | | PDT | | results section. | + +--------+ + + + | [place] DAVID STATS NO | Routin | 03/20/2015 | | Results for this | | CHARGE | e | 1:22 PM | | procedure are in the | | | | PDT | | results section. | + +--------+ + + + | ARTHROPLASTY HAND | | 03/20/2015 | Osteoarthritis of | | | | | 12:14 PM | left hand, | | | | | PDT | unspecified | | | | | | osteoarthritis type | | + +--------+ + + + +---+--------+ | | | | | Specia | | | l | | | Needs | | | | | | Arthre | | | x | +---+--------+ documented in this encounter Results XR Hand Left 1 Vw Limited (03/20/2015 1:23 PM PDT) + + | Specimen | + + | | + + + + + | Narrative | Performed At | + + + | XR HAND LEFT 1 VW LIMITED. 03/20/2015 1:00 PM HISTORY: intra | [facility] | | op. COMPARISON: None available. FINDINGS/IMPRESSION - A | | | single intraoperative fluoroscopic view demonstrates surgical | | | intervention at the base of the thumb. Total fluoroscopic time of 4 | | | seconds. Please see operative report for further information. | | | Dictated and Signed by: Jose Krishna MD Electronically signed: | | | 03/21/2015 8:21 AM | | + + + + + | Procedure Note | + + | Raoul Lockwood Results In - 03/21/2015 8:24 AM PDT XR HAND LEFT 1 VW LIMITED. 03/20/2015 | | 1:00 PMHISTORY: intra op.COMPARISON: None available.FINDINGS/IMPRESSION -A single | | intraoperative fluoroscopic view demonstrates surgical intervention atthe base of the | | thumb.Total fluoroscopic time of 4 seconds.Please see operative report for further | | information.Dictated and Signed by: Jose Krishna MD Electronically signed: | | 03/21/2015 8:21 AM | |FINDINGS/IMPRESSION - | |A single intraoperative fluoroscopic view demonstrates surgical intervention at | |the base of the thumb. | |Total fluoroscopic time of 4 seconds. | | | |Please see operative report for further information. | | | |Dictated and Signed by: Jose Krishna MD | | Electronically signed: 03/21/2015 8:21 AM | + + + +---------+ + + | Performing | Address | City/State/Zipcode | Phone Number | | Organization | | | | + +---------+ + + | [facility] | | | | + +---------+ + + [place] C-Arm Stats No Charge (03/20/2015 1:22 PM PDT) + + | Specimen | + + | | + + + + + | Narrative | Performed At | + + + | No Radiologist interpretation, please see Chart Review. | [facility] | + + + + +---------+ + + | Performing | Address | City/State/Zipcode | Phone Number | | Organization | | | | + +---------+ + + | [facility] | | | | + +---------+ + + documented in this encounter Visit Diagnoses + + | Diagnosis | + + | Osteoarthritis of left hand, unspecified osteoarthritis type | + + documented in this encounter Administered Medications + +--------+ +--------+------+------+ | Medication Order | MAR | Action | Dose | Rate | Site | | | Action | Date | | | | + +--------+ +--------+------+------+ | albuterol 2.5 mg/3 mL nebulizer | Given | 03/20/20 | 2.5 mg | | | | solution 2.5 mg 2.5 mg, | | 15 1:46 | | | | | Nebulization, ONCE PRN, Wheezing, | | PM PDT | | | | | Starting 03/20/15 at 1319, | | | | | | | For 1 dose, Notify anesthesia if | | | | | | | patient is wheezing and does not | | | | | | | have a history of asthma or COPD | | | | | | | or current smoking., | | | | | | | Recovery/Phase I | | | | | | + +--------+ +--------+------+------+ +---+---+ | | | +---+---+ + +-------+ +-------+---+---+ | albuterol-ipratropium (DUONEB) | Given | 03/20/20 | 3 mLs | | | | 2.5-0.5 mg/3 mL nebulizer | | 15 11:12 | | | | | solution 3 mL 3 mL, | | AM PDT | | | | | Nebulization, RT Q6H, First dose | | | | | | | on Thu03/20/15 at 1130, Pre-op | | | | | | + +-------+ +-------+---+---+ +---+---+ | | | +---+---+ + +-------+ +------+---+---+ | HYDROmorphone (DILAUDID) tablet | Given | 03/20/20 | 8 mg | | | | 8 mg 8 mg, Oral, EVERY 4 HOURS | | 15 11:20 | | | | | PRN, Pain, Starting Thu03/20/15 | | AM PDT | | | | | at 1109, Pre-op | | | | | | + +-------+ +------+---+---+ +---+---+ | | | +---+---+ + +---------+ [...] +---+---+---+ +---------+ +---------+-------+--------+ | New Bag | 20 | 100 mLs | 100 | Right | | | 15 10:59 | | mL/hr | Arm | | | AM PDT | | | | +---------+ +---------+-------+--------+ +---+---+ | | | +---+---+ + +-------+ +-------+---+ + | ropivacaine (NAROPIN) 5 mg/mL | Given | 20 | 5 mLs | | Surgical | | (0.5%) injection PRN, Starting | | 15 1:24 | | | Site | | 03/20/15 at 1324, Intra-op | | PM PDT | | | | + +-------+ +-------+---+ + +---+---+ | | | +---+---+ documented in this encounter
--- OUTSIDE RECORDS SUMMARY | ~2019-12-28 | XMS | Encounter Summary ---
Demographics + + + | Address | [address] | | | [place] [address] | + + + | Home Phone | | + + + | Preferred Language | Unknown | + + + | Marital Status | | + + + | Worship Affiliation | Unknown | + + + | Race | Unknown | + + + | Ethnic Group | Unknown | + + + Author + + + | Author | [facility] | | | and [place] | + + + | Organization | [facility] | | | and [...] [place] | | | | | [address] | | + + + + + Care Team Providers + +------+ + | Care Assistant Therapy Aide Name | Role | Phone | + +------+ + | Davis Ivan MD | PCP | | + +------+ + Reason for Visit +--------+ + | Reason | Comments | +--------+ + | Other | 3 month follow up COPD | +--------+ + Encounter Details +--------+---------+ + + + | Date | Type | Department | Care Team | Description | +--------+---------+ + + + | 03/08/ | Office | [facility] [place] | [place], | COPD (chronic | | 2014 | Visit | PULMONARY [address] | Ayana Looney MD | obstructive | | | | [place], | | pulmonary disease) | | | | [place] [address] | | (Primary Dx); | | | | [phone] | | Gastroesophageal | | | | | | reflux disease | | | | | | without esophagitis; | | | | | | Recurrent squamous | | | | | | cell carcinoma of | | | | | | lung, right (HCC); | | | | | | Radiation | | | | | | pneumonitis (HCC) | +--------+---------+ + + + Social [...] + + + | Blood Pressure | 118/70 | 03/08/2015 2:53 PM | | | | | PDT | | + + + + + | Pulse | 86 | 03/08/2015 2:53 PM | | | | | PDT | | + + + + + | Temperature | - | - | | + + + + + | Respiratory Rate | 20 | 03/08/2015 2:53 PM | | | | | PDT | | + + + + + | Oxygen Saturation | 95% | 03/08/2015 2:53 PM | | | | | PDT | | + + + + + | Inhaled Oxygen | - | - | | | Concentration | | | | + + + + + | Weight | 71.2 kg (157 lb) | 03/08/2015 2:53 PM | | | | | PDT | | + + + + + | Height | 157.5 cm (5' 2") | 03/08/2015 2:53 PM | | | | | PDT | | + + + + + | Body Mass Index | 28.72 | 03/08/2015 2:53 PM | | | | | PDT | | + + + + + documented in this encounter Patient Instructions Patient Instructions Ayana Taylor MD - 03/08/2015 4:02 PM PDTInstructions for Av oidance of Reflux 1. Elevate the head of your bed about 5 inches, using a cinder block, or other device. 2. Avoid eating about 4 hours before bed. 3. Avoid lying down about 1 hour after eating. 4. Avoid drinking caffeine. 5. Avoid drinking alcohol. 6. Avoid eating fatty or spicy foods. 7. Your largest meal should be at breakfast or lunch, instead of dinner. 8. Avoid large bolus meals, and eat small amounts frequently throughout the day. 9. Weight loss is beneficial. 10. Take your reflux medication, omeprazole, 30 minutes prior to eating. Stop the Symbicort. Start on Breo, 1 inhalation once daily. Rinse mouth after use. You can use it at any time o f the day, as long as you use it the same time of the day every day. documented in this encounter Progress Notes Ayana Taylor MD - 03/08/2015 2:56 PM PDTFormatting of this note might be differe nt from the original. Pulmonary Follow Up HPI Thea Carmona is a 69 y.o. female patient of Davis Ivan MD here today for follow up of COPD. At their last visit, we had continued her on Symbicort and Tudorza. Since their last visit she feels like she has been doing not that great. She has not had any acute illnesses. She notes that she went and got her flu shot, and then the next day she felt really tired a nd worn out. She felt really tired for the next couple of days. She felt really achy for a c ouple of days as well. She then notes she got a fever to 101 degrees, and so she started on amoxicillin she had at home and took 6 doses of that. She notes her fever has gone away. The only other symptom she had was aching lower back pain. She did not call her PCP about this. She is currently on a regimen of Tudorza twice daily and Symbicort twice daily. She is not using her rescue inhaler at all. She is using her nebulizer, albuterol, 3 times a day. It he lps some with her breathing. She returns today for routine follow up. She has been having shortness of breath when she does activity. Currently she is able to wa lk 1 block at her own pace on level ground. She is exercising semi regularly. She walks a 1 block route when she is feeling reasonably good. She feels like she has been coughing again lately, but then notes she feels like it never s topped, though at her last visit, she did not notice any coughing. Today she notes it gets w orse and better, and reports she controls it with hydrocodone. She denies having a lot of sinus congestion or runny nose. She does cough up a lot of mucou s or phlegm. Her thinks her nose is congested. She has been evaluated for nocturnal oxygen and does not need to use it. She has had symptoms of heartburn or reflux. She notes it has been a lot worse the last few weeks. She is taking both reflux medications, and her eating hasn't changed. She eats dinne r at 8pm and then lies down at 11pm. Past Medical History Past Medical History Diagnosis Date COPD (chronic obstructive pulmonary disease) ([facility]) on albuterol Spondylolisthesis of cervical region Spinal stenosis has tried cortisone injections Osteoporosis Depression Pneumonia 2009 hospitalized 5 days Rheumatoid arthritis(714.0) ([facility]) on [facility]one [facility]ate[facility] Hyperlipidemia on simvastatin Hypertension on clonidine and lisinopril Hypothyroidism GERD (gastroesophageal reflux disease) Stroke ([facility]) 2006 Stroke ([facility]) 2007 Squamous cell carcinoma of lung ([facility]) 07/2013 right lower lobe Sputum culture positive for Scopulariopsis species Recurrent squamous cell carcinoma of lung ([facility]) 07/11/[address] and [...] 07/11/2014 EBUS with right hilar LN biopsy, [facility] Dr. 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 Social History Main Topics Smoking status: Former Smoker -- 1.00 packs/day for 50 years Types: Cigarettes Quit date: 08/21/2012 Smokeless tobacco: Never Used Comment: using e cigarettes Alcohol Use: No Comment: pt states she was an alcoholic for 40 years but quit in 05/2012 Drug Use: No Comment: marijuana in the remote past Sexual Activity: None Other Topics Concern None Social History Narrative Lives: in [place] With: alone [place] [facility] Exposure to toxic chemicals: no Exposure to asbestos: no Exposure to tuberculosis: no Has had a PPD or Quantiferon before: no Has pets at home: cat and a dog Has ever owned birds: yes, 5 years ago Other animal exposures: no Hobbies: used to jaja, crossword puzzles, walking her dog Allergies: No Known Allergies Medications: Outpatient Encounter Prescriptions as of 03/08/2015 Medication Sig Dispense Refill aclidinium (TUDORZA PRESSAIR) [...] n eeded for Cough. 42 capsule 2 budesonide-formoterol (SYMBICORT) 160-4.5 mcg/puff inhaler Inhale 2 puffs into the lung s 2 times daily. 1 Inhaler 5 cholecalciferol (VITAMIN D-3) 1,000 units capsule Take 1,000 Units by mouth Daily. cloNIDine (CATAPRES) 0.1 mg tablet Take by mouth Daily. clopidogrel (PLAVIX) 75 mg tablet Take 75 mg by mouth Daily. diazepam (VALIUM) 2 mg tablet nightly as needed. 0 ferrous sulfate (IRON) 28 MG TABS Take 28 mg by mouth Daily. Fexofenadine HCl (ETHAN ALLERGY PO) Take by mouth Daily. folic acid 1 mg [...] 1 tablet by mouth 2 times daily. (Patient taking differently: Take 150 mg by mouth Daily.) 60 tablet 3 Respiratory Therapy Supplies [facility] S9 auto CPAP 5-9 cm H2O. Heater [...] facility-administered encounter medications on file as of 03/08/2015. Review of Systems: General: []Weight loss/gain (over 10 lbs) []Fever/chills/sweats [x]Night sweats EENT: []Hearing loss []Vision loss/change []Sinus congestion/nasal drainage []Nosebleeds [x ]Hoarseness Cardiac: []Chest pain []Palpitations/heart racing []Swelling of legs/ankles [x]Waking up at night short of breath []Difficulty sleeping flat Gastrointestinal: [x]Nausea/vomiting []Difficulty swallowing [x]Heartburn/acid reflux []Loss of appetite []A bdominal pain Urologic: []Blood in urine []Frequent urination at night []Burning/painful urination []Difficulty wit h urination Objective BP 118/70 mmHg | Pulse 86 | Resp 20 | Ht 1.575 m (5' 2") | Wt 71.215 kg (157 lb) | BMI 28.7 1 kg/m2 | SpO2 95% RA General Appearance: Alert, cooperative, no distress, [...] bilaterally with prolongatio n of the expiratory phase, no wheezes, crackles or rhonchi Chest Wall: No deformity Heart: Regular rate and rhythm, no murmur, rub or gallop Abdomen: Soft, non-tender, non-distended Extremities: No cyanosis, clubbing, or edema Pulses: Radial pulses 2+ and symmetric Skin: Warm and dry Lymph nodes: Cervical and supraclavicular nodes normal Data: PET scan done December 20, 2014 was reviewed and interpreted in clinic today. It shows no uptak e in primary lesion or associated adenopathy. There is an area of uptake in the RUL with in terstitial thickening, likely radiation pneumonitis. Labs: Ref. Range 11/09/2014 13:13 WBC Latest Range: 4.0-11.0 K/uL 7.6 RBC: Latest Range: 3.70-5.20 M/uL 3.53 (L) Hgb Latest Range: 11.5-16.0 g/dL 11.7 Hct, Final Latest Range: 34.0-47.0 % 36.3 MCV Latest Range: 83.0-101.0 fL 102.8 (H) MCH Latest Range: 28.0-35.0 pg 33.1 MCHC Latest Range: 32.0-36.0 g/dL 32.2 RDW-CV Latest Range: <15.0 % 19.5 (H) Platelet Count Latest Range: 140-440 K/uL 179 MPV No range found 7.5 Absolute Neutrophils Latest Range: 1.80-8.50 K/uL 6.50 Absolute Lymphocytes Latest Range: 0.60-3.20 K/uL 0.70 Absolute Monocytes Latest Range: 0.00-1.00 K/uL 0.40 Absolute Eosinophils Latest Range: 0.00-0.40 K/uL 0.00 Absolute Basophils Latest Range: 0.00-0.10 K/uL 0.00 % Neutrophils Latest Range: 45.0-82.0 % 85.3 (H) % Lymphocytes Latest Range: 20.0-45.0 % 8.9 (L) % Monocytes Latest Range: 4.0-12.0 % 4.7 % Eosinophils Latest Range: 0.0-5.0 % 0.7 % Basophils Latest Range: 0.0-1.0 % 0.4 NA Latest Range: 136-149 mmol/L 135 (L) K Latest Range: 3.5-5.1 mmol/L 4.3 CL Latest Range: 98-109 mmol/L 105 CO2 Latest Range: 24-31 mmol/L 25 ANION GAP Latest Range: 3-16 mmol/L 5 GLUCOSE Latest Range: 70-109 mg/dL 118 (H) BUN Latest Range: 7-18 mg/dL 10 BUN/CREA No range found 13.0 CREA Latest Range: 0.60-1.30 mg/dL 0.77 ALBUMIN Latest Range: 3.2-5.0 g/dL 3.3 Albumin/Globulin ratio No range found 1.1 Total protein Latest Range: 6.0-7.8 g/dL 6.4 EGFR IF NOT Latest Range: >=60 mL/min/1.73m2 >60 Calcium Latest Range: 8.3-10.5 mg/dL 8.5 ALK PHOS Latest Range: 40-110 U/L 65 ALT (SGPT) (REF) Latest Range: 6-45 U/L 17 AST Latest Range: 10-42 U/L 25 LD TOTAL Latest Range: 91-180 U/L 205 (H) BILIRUBIN TOTAL Latest Range: 0.1-1.5 mg/dL 0.5 GLOBULIN No range found 3.1 [place]'s notes were reviewed in clinic today. Immunization History Administered Date(s) Administered INFLUENZA, TRIVALENT PRESERVATIVE FREE (PED/ADOL/ADULT) 03/22/2013, 02/15/2014 INFLUENZA, UNSPECIFIED FORMULATION 03/02/2015 PNEUMOCOCCAL CONJUGATE 13-VALENT (PCV13) 07/14/2014 PNEUMOCOCCAL POLYSACCHARIDE 23-VALENT (PPSV23) 03/01/2011 Assessment ICD-10-CM ICD-9-CM 1. COPD (chronic obstructive pulmonary disease) J44.9 496 On Tudorza and Symbicort. She had more cough on the Spiriva, then got better on Tudorza, but today notes more cough again. Hi story remains somewhat unclear. We will try changing Symbciort to Breo. 2. Gastroesophageal reflux disease without esophagitis K21.9 530.81 On Omeprazole and ranit idine. She had mild gastritis on her recent EGD in [place]. 3. Recurrent squamous cell carcinoma of lung, right (HCC) C34.91 162.9 PET scan shows no me tabolic activity at site of primary malignancy or adenopathy. She has adjacent interstitial thickening that has activity that may well be radiation pneumonitis and will have to be foll owed. She remains a poor chemotherapy candidate. 4. Radiation pneumonitis (HCC) J70.0 508.0 She received steroids without much relief of her symptoms, but I suspect this is a contributor to her cough. Plan 1.Change Symbicort to Breo. 2.Continue omeprazole and ranitidine. Lifestyle modification instructions for avoidance of reflux provided. 3.Continue twice daily Tudorza. 4. I advised against additional cough syrup given her ongoing use of narcotics. She was advised to call if new pulmonary symptoms were to develop. Return to clinic in 3 months, or sooner with concerns. CC: Davis Ivan MD Portions of this report were transcribed using voice recognition software. Every effort wa s made to ensure accuracy; however, inadvertent computerized speech and language assistant errors may be pre sent. documented in this encounter Plan of Treatment +--------+---------+ + + + | Date | Type | Specialty | Care Team | Description | +--------+---------+ + + + | 03/06/ | Office | Rheumatology | Santosh Sumner, | | | 2019 | Visit | | [facility] [address] | | | | | | [facility] | | | | | | [place] [address] | | | | | | [phone] | | | | | | | | +--------+---------+ + + + documented as of this encounter Visit Diagnoses + + | Diagnosis | + + | COPD (chronic obstructive pulmonary disease) - Primary Chronic airway obstruction, | | not elsewhere classified | + + | Gastroesophageal reflux disease without esophagitis Esophageal reflux | + + | Recurrent squamous cell carcinoma of lung, right (HCC) | + + | Radiation pneumonitis (HCC) Acute pulmonary manifestations due to radiation | + + documented in this encounter
--- OUTSIDE RECORDS SUMMARY | ~2019-12-28 | XMS | Encounter Summary ---
Demographics + + + | Address | [address] | | | [place] [address] | + + + | Home Phone | | + + + | Preferred Language | Unknown | + + + | Marital Status | | + + + | Methodist Affiliation | Unknown | + + + | Race | Unknown | + + + | Ethnic Group | Unknown | + + + Author + + + | Author | [facility] | | | and [place] | + + + | Organization | [facility] | | | and [...] [place] | | | | | [address] | | + + + + + Care Team Providers + +------+ + | Care Conservation Policy Analyst Name | Role | Phone | + +------+ + | Davis Ivan MD | PCP | | + +------+ + Encounter Details +--------+ + + + + | Date | Type | Department | Care Team | Description | +--------+ + + + + | 08/15/ | Documentati | [facility] | Keyana Jacques | | | 2014 | on | MED [facility] ONCOLOGY | A, OT | | | | | THERAPY [address] | | | | | | [place], | | | | | | [place] [address] | | | | | | [phone] | | | +--------+ + + + [...] documented as of this encounter Progress Notes Keyana Jacques OT - [facility]15[facility]2014 11[facility] [address] [place] [address] Oncology Rehab Screening Date: 08/15/2014 Patient Information Patient Name: Thea Carmona Date of : 1945 Age: 69 y.o. Patient was seen for follow up visit by [place] rehab department manager. Patient very somnolent at time o f visit; difficulty staying awake. 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 She reported her SOB had improved some over past week, but she still got easi ly SOB during basic ADLs and mobility. Issued patient handouts re: energy conservation tech s and diaphragmatic breathing but unable to review due to patient's somnolence. Also unable to instruct in HEP at this time. Will provide w/ HEP next visit; patient agreeable. Will have follow up visit in cancer center. Electronically signed by: Keyana Jacques OT, 08/15/2014 11:28 Patient Name: Thea Carmona/: 1945/ documented in this encounter Plan of Treatment +--------+---------+ + + + | Date | Type | Specialty | Care Team | Description | +--------+---------+ + + + | 03/06/ | Office | Rheumatology | Santosh Sumner, | | | 2019 | Visit | | [facility] [address] | | | | | | [place] | | | | | | [place] [address] | | | | | | [phone] | | | | | | | | +--------+---------+ + + + documented as of this encounter Visit Diagnoses Not on filedocumented in this encounter"
--- OUTSIDE RECORDS SUMMARY | ~2019-12-28 | XMS | Encounter Summary ---
Demographics + + + | Address | [address] | | | [place] [address] | + + + | Home Phone | | + + + | Preferred Language | Unknown | + + + | Marital Status | | + + + | Temple Affiliation | Unknown | + + + | Race | Unknown | + + + | Ethnic Group | Unknown | + + + Author + + + | Author | [facility] | | | and [place] | + + + | Organization | [facility] | | | [...] [place] | | | | | [address] | | + + + + + Care Team Providers + +------+ + | Care Bottled Beverage Inspector Name | Role | Phone | + [...] Description | +--------+---------+ + + + | 09/08/ | Office | [facility] | [place], | MARCE (obstructive | | 2013 | Visit | PULMONARY [address] | Ayana Looney MD | sleep apnea) | | | | [place], | | (Primary Dx); COPD | | | | [place] [address] | | (chronic obstructive | | | | [phone] | | pulmonary disease) | +--------+---------+ + + + Social History [...] + + + | Blood Pressure | 102/56 | 09/08/2013 2:01 PM | | | | | PDT | | + + + + + | Pulse | 68 | 09/08/2013 2:01 PM | | | | | PDT | | + + + + + | Temperature | - | - | | + + + + + | Respiratory Rate | - | - | | + + + + + | Oxygen Saturation | 97% | 09/08/2013 2:01 PM | | | | | PDT | | + + + + + | Inhaled Oxygen | - | - | | | Concentration | | | | + + + + + | Weight | 71.2 kg (157 lb) | 09/08/2013 2:01 PM | | | | | PDT | | + + + + + | Height | 157.5 cm (5' 2") | 09/08/2013 2:01 PM | | | | | PDT | | + + + + + | Body Mass Index | 28.72 | 09/08/2013 2:01 PM | | | | | PDT | | + + + + + documented in this encounter Patient Instructions Patient Instructions Ayana Taylor MD - 09/08/2013 2:33 PM PDTTake the chip in to [facility] on Thursday the so I can get a download and make any needed adjustmen ts before your surgery. Stay on Symbicort twice daily. Use albuterol nebulizers as needed for shortness of breath. Take CPAP with you to the surgery. We will order the physical therapy after the surgery. documented in this encounter Progress Notes Ayana Taylor MD - 09/08/2013 2:20 PM PDTFormatting of this note might be differe nt from the original. Sleep Follow Up HPI Thea Carmona is a 68 y.o. female patient of Davis Ivan here today for follow up of obstructive sleep apnea. She just received her CPAP machine yesterday. She had called the [employer], and mio forrester told her they would call her when they got approval, and then they called 2 weeks later. She does note that she has had some lazo on her face from the mask. It may be that it was overly tight. She had a nosebleed this morning after she used the machine. She did get a full face mask. She notes that the water level did not go down in the tank at all. She wore the machine for 4 hours last night, and then woke up and took it off. She notes she did not feel like she cintron d to take it off. She does note some pain on the right side of her head as well. She is scheduled for surgery September [address] Mace. She started on the Symbicort twice daily. She does feel like this is helping. She walked cl ear across the street to the bank without difficulty. She is no longer needing to use the ne bulizer, though she has this available. She has been trying to walk more, getting out and do ing shopping. She does get tried, and then will have to rest. Past Medical History Past Medical History Diagnosis Date COPD (chronic obstructive pulmonary disease) ([facility]) on albuterol Spondylolisthesis of cervical region Spinal stenosis has tried cortisone injections Osteoporosis Depression Pneumonia 2008 hospitalized 5 days Rheumatoid arthritis(714.0) ([facility]) [facility]lipidemia on simvastatin Hypertension on clonidine and lisinopril Hypothyroidism GERD (gastroesophageal reflux disease) Stroke ([facility]) 2006 Stroke ([facility]) 2007 Squamous cell carcinoma of lung ([facility]) 07/2013 MARCE (obstructive sleep apnea) AHI 11.6 Sputum culture positive for Scopulariopsis species Allergies: No Known Allergies Medications: Outpatient Encounter Prescriptions as of 09/08/2013 Medication Sig Dispense Refill albuterol 2.5 mg/3 mL nebulizer solution Take 2.5 mg by nebulization every 6 hours as n eeded. aspirin 81 MG tablet Take 81 mg by mouth Daily. budesonide-formoterol (SYMBICORT) 160-4.5 mcg/puff inhaler Inhale 2 puffs into the lung s 2 times daily. 1 Inhaler 11 cholecalciferol (VITAMIN D-3) 1,000 units capsule Take [...] tablet Take 10 mg by mouth Daily. Respiratory Therapy Supplies [facility] [employer] S9 auto CPAP 5-9 cm H2O. Heater [...] 37.5 mg by mouth 2 times daily. Objective BP 102/56 | Pulse 68 | Ht 1.575 m (5' 2") | Wt 71.215 kg (157 lb) | BMI 28.71 kg/m2 | SpO2 97%RA General Appearance: Alert, cooperative, no distress, appears stated age Head: Normocephalic, without obvious abnormality, atraumatic Eyes: PERRL, conjunctiva clear, no scleral icterus, EOM's intact Ears: Normal TM's, external auditory canals, diminished acuity Nose: Nares normal, septum midline, mucosa normal Mouth: No oral lesions or exudate Neck: Supple, symmetrical, no adenopathy Lungs: No accessory muscle use, breath sounds are diminished bilaterally with some prolon gation of the expiratory phase, no wheezes, crackles or rhonchi Chest Wall: No deformity Heart: Regular rate and rhythm, no murmur, rub or gallop Abdomen: Soft, non-tender, non-distended Extremities: No cyanosis, clubbing, or edema Pulses: Radial pulses 2+ and symmetric Skin: Warm and dry Lymph nodes: Cervical and supraclavicular nodes normal Immunization History Administered Date(s) Administered INFLUENZA, PRESERVATIVE FREE IM 03/22/2013 Pneumococcal (Adult) 03/01/2011 Assessment 1. MARCE (obstructive sleep apnea) - On CPAP for 1 night. Used for 4 hours, then took off. Fernando mares feels she can tolerate longer. May be wearing the mask too tightly. She will work with the [employer] to adjust this or get a new mask. I will get a download next week to adjust befo re surgery. I did also suggest increasing the humidity as this may help with the nosebleeds. 2. COPD (chronic obstructive pulmonary disease) - Improved on Symbicort, we will continue. Plan 1.Adjust mask to fit. 2.Increase humidity. 3.Continue Symbicort twice daily. 4. Download from CPAP next Thursday so I can adjust pressure preoperatively. 5. Take CPAP to the surgery to use perioperatively. 6. Physical therapy after she is done with her surgery. Return to clinic in early September. 25 minutes were spent with Ms. Carmona and her hsuband with greater than 50% spent in couns eling and coordination of care. CC: Davis Ivan MD, José Miguel Mace MD Electronically signed by: Ayana Taylor MD 09/08/2013 18:45 documented in t his encounter Plan of Treatment +--------+---------+ + + + | Date | Type | Specialty | Care Team | Description | +--------+---------+ + + + | 03/06/ | Office | Rheumatology | Santosh Sumner, | | | 2019 | Visit | | [facility] [address] | | | | | | [facility] | | | | | | [place] [address] | | | | | | [phone] | | | | | | | | +--------+---------+ + + + documented as of this encounter Visit Diagnoses + + | Diagnosis | + + | MARCE (obstructive sleep apnea) - Primary Obstructive sleep apnea (adult) (pediatric) | + + | COPD (chronic obstructive pulmonary disease) Chronic airway obstruction, not | | elsewhere classified | + + documented in this encounter
--- OUTSIDE RECORDS SUMMARY | ~2019-12-28 | XMS | Encounter Summary ---
Demographics + + + | Address | [address] | | | [place] [address] | + + + | Home Phone | | + + + | Preferred Language | Unknown | + + + | Marital Status | | + + + | Latter-Day Affiliation | Unknown | + + + | Race | Unknown | + + + | Ethnic Group | Unknown | + + + Author + + + | Author | [facility] | | | and [place] | + + + | Organization | [facility] | | | [...] [address] | | | | | [address] | | + + + + + Care Team Providers + +------+ + | Care Sticker Operator Name | Role | Phone | + +------+ + | Davis Ivan MD | PCP | | + +------+ + Reason for Visit + +--------+ + | Reason | Onset | Comments | | | Date | | + +--------+ + | Medication Refill | 10/02/ | | | Assistance | 2015 | | + +--------+ + Encounter Details +--------+ + + + + | Date | Type | Department | Care Team | Description | +--------+ + + + + | 10/02/ | Telephone | [facility] | [place], | Medication Refill | | 2015 | | PULMONARY [address] | Ayana Looney MD | Assistance | | | | [place], | | | | | | [place] [address] | | | | | | [phone] | | | +--------+ + + + [...] + + documented as of this encounter Miscellaneous Notes Telephone Encounter - Blessing Lopez RN - 10/03/2015 12:59 PM PDTReceived fax from [facility] stating patient may save money if she's allowed a 90 day supply of Breo instead of 30 day supply. In March 2015 we sent order to [facility] for refills for #1 inhaler plus 11 refills. Called [facility] and gave approval for refills to be given at 90 day supply through refill date. They made note of it and will refill as requested. (In researching medications for this request, it is noted patient was admitted to ICU with pneumonia early this morning .) documented in thi s encounter Plan of Treatment +--------+---------+ + + + | Date | Type | Specialty | Care Team | Description | +--------+---------+ + + + | 03/06/ | Office | Rheumatology | Santosh Sumner, | | | 2019 | Visit | | [facility] [address] | | | | | | [address] [address] | | | | | | [place] [address] | | | | | | [phone] | | | | | | | | +--------+---------+ + + + documented as of this encounter Visit Diagnoses Not on filedocumented in this encounter"
--- OUTSIDE RECORDS SUMMARY | ~2019-12-28 | XMS | Encounter Summary ---
Demographics + + + | Address | [address] | | | [place] [address] | + + + | Home Phone | | + + + | Preferred Language | Unknown | + + + | Marital Status | | + + + | Sikhism Affiliation | Unknown | + + + | Race | Unknown | + + + | Ethnic Group | Unknown | + + + Author + + + | Author | [facility] | | | and [place] | + + + | Organization | [facility] | | | [...] [place] | | | | | [id number] | | + + + + + Care Team Providers + +------+ + | Care Revenue Stamper Name | Role | Phone | + [...] Closed | | | Diagnoses | | | | | | | Malignant | | | | | | | neoplasm of | | | | | | | bronchus and | | | | | | | lung, | | | | | | | unspecified | | | | | | | site | | | | | | | Malignant | | | | | | | neoplasm of | | | | | | | bronchus and | | | | | | | lung, | | | | | | | unspecified | | | | | | | site (HCC) | | | | | | | Procedures | | | | | | | INSERTION | | | | | | | CATHETER | | | | | | | PORTACATH | | | +--------+--------+ + + + + Encounter Details +--------+---------+ + + + | Date | Type | Department | Care Team | Description | +--------+---------+ + + + | 07/28/ | Surgery | [facility] | Chalino Chiu | Port Placement | | 2015 | | [facility] | Brittanie, , FACS [address] | | | | | [address] | [facility] | | | | | [place], [place] | [place] [address] | | | | | [address] | [phone] | | | | | [phone] | | | +--------+---------+ + + + [...] + + + | Blood Pressure | 121/60 | 07/28/2014 6:00 PM | | | | | PST | | + + + + + | Pulse | 64 | 07/28/2014 6:00 PM | | | | | PST | | + + + + + | Temperature | 36.4 C (97.5 F) | 07/28/2014 4:59 PM | | | | | PST | | + + + + + | Respiratory Rate | 18 | 07/28/2014 6:00 PM | | | | | PST | | + + + + + | Oxygen Saturation | 94% | 07/28/2014 6:00 PM | | | | | PST | | + + + + + | Inhaled Oxygen | - | - | | | Concentration | | | | + + + + + | Weight | 68.9 kg (152 lb) | 07/28/2014 12:08 PM | | | | | PST | | + + + + + | Height | 157.5 cm (5' 2") | 07/28/2014 12:08 PM | | | | | PST | | + + + + + | Body Mass Index | 27.8 | 07/28/2014 12:08 PM | | | | | PST | | + + + + + documented in this encounter Discharge Instructions Instructions Dalila Escamilla RN - 07/28/2014Formatting of this note might be different f rom the original. POSTOPERATIVE DISCHARGE INSTRUCTIONS 1. Regular diet 2. Leave bandages in place for 3-4 days, then can remove. 3. Follow-up care with Dr Chino. Vascular Access Port Implantation Port implantation is surgery to place (implant) a port under the skin. For vascular access, it is placed into a vein. The port allows medications or nutrition to be sent straight into your bloodstream. Blood can also be taken or given through the port. During the procedure, a long, thin tube called a catheter is threaded into one of your large veins. The tube is th en attached to the port. This usually sits under the skin of the chest and causes a small bu mp. To use the port, a special needle is passed through the skin and into the port. The need le can stay in the skin for up to 7 days, if needed. A port can stay in place for weeks or m onths or longer. Why is a vascular access port needed? A vascular access port may allow health care providers to give you: Chemotherapy or other cancer-fighting drugs IV treatments, such as antibiotics or nutrition Hemodialysis (for kidney failure) The port may also be used to draw blood. Before the procedure Follow any instructions you are given on how to prepare. Be sure your provider knows: All medications, herbs, or supplements you take If you are or might be If you are allergic to any medications or substances, especially local anesthetics or io dine Your complete medical history including why you will need the port If you plan on doing any contact sports During the procedure Before the procedure, an IV may be put into a vein in your arm or hand. This gives you f luids and medications. Medication to help you relax during the procedure may be given throug h the IV. This is called sedation. However, some surgeons place ports using general anesthes ia. The chest is used most often for the port. In some cases, abdomen (belly) or arm is used instead. The skin over the insertion area is numbed with local anesthetic. Ultrasound or X-rays are used to help the doctor guide the catheter into the proper loca tion during the procedure. An incision is made in the skin where the port will be placed. A small pocket for the port is formed under the skin. A second small incision is made in the skin near the first incision. A tunnel unde r the skin is created. The catheter is put through the tunnel and into the blood vessel. The skin is closed over the port. It is held shut with sutures (stitches) or surgical gl ue or tape. The second small incision is also closed. A chest X-ray may be done to make sure the port is placed properly. After the procedure You may be taken to a recovery room where you ll recover from the sedation. Nurses will c heck on you as you rest. If you have pain, nurses can give you medication. If you are not st aying in the hospital overnight, you will be sent home a few hours after the procedure is do ne. A healthccare provider will tell you when you can go home. When you leave the hospital, an adult family member or friend will need to drive you. Recovering at home Take pain medication as directed by your doctor. Take it easy for 24 hours after the procedure. Avoid physical activity and heavy lifting until your doctor says it s OK. Keep the port clean and dry.Ask when you canreturn to showering. You will need to ke ep the port dry by covering it when you shower. Care for the insertion site as you are directed. Don t swim, bathe, or do other activities that cause water to cover the insertion site . To keep the port from getting blocked with blood clots, flush it as often as directed. Y ou should receive instruction in the proper technique for flushing the port before you go ho me. It is important to follow these directions. Risks and possible complications of implantation Bleeding Infection of the insertion site Damage to a blood vessel Nerve injury or irritation Collapsed lung (for chest port placements) Breakdown of skin over the port Risks and possible complications of having a port Blockage of port or catheter Leakage or breakage of the port or catheter Dislodgement of port Blood clot Skin or bloodstream infection Breakdown of skin over the port When to call the doctor Call your doctor right away for any of the following: A fever of 101.5F38.6 C or higher You cannot access or use the port properly You cannot flush the port or get a blood return The skin near the port is red, warm, swollen, or broken You have shoulder pain on the side where the port is located You feel a heart flutter or racing heart Swollen arm, if the port is placed in the arm [phone] [employer] [address] [place] [address], [place] [address]. All righ ts reserved. This information is not intended as a substitute for professional medical care. Always follow your healthcare professional's instructions. Anesthesia: After Your Surgery You ve just had surgery. During surgery, you received medication called anesthesia to jason p you comfortable and pain-free. After surgery, you may experience some pain or nausea. This is normal. Here are some tips for feeling better and recovering after surgery. Going Home Your doctor or nurse will show you how to take care of yourself when you go home. He or she will also answer your questions. Have an adult family member or friend drive you home. For the first 24 hours after your surgery: Do not drive or use heavy equipment. Do not make important decisions or sign legal documents. Avoid alcohol. Have someone stay with you, if needed. He or she can watch for problems and help keep yo u safe. Be sure to keep all follow-up doctor s appointments. And rest after your procedure for as long as your doctor tells you to. Coping with Pain If you have pain after surgery, pain medication will help you feel better. Take it as direc april, before pain becomes severe. Also, ask your doctor or pharmacist about other ways to con trol pain, such as with heat, ice, and relaxation. And follow any other instructions your jones rgeon or nurse gives you. Tips for Taking Pain Medication To get the best relief possible, remember these points: Pain medications can upset your stomach. Taking them with a little food may help. Most pain relievers taken by mouth need at least 20 to 30 minutes to take effect. Taking medication on a schedule can help you remember to take it. Try to time your medic ation so that you can take it before beginning an activity, such as dressing, walking, or si tting down for dinner. Constipation is a common side effect of pain medications. Contact your doctor before ria ing any medications like laxatives or stool softeners to help relieve constipation. Also ask about any dietary restrictions, because drinkinglots of fluids andeating foodslikef ruits and vegetables that are high in fiber can also help. Remember, don t take laxatives unless your surgeon has prescribed them. Mixing alcohol and pain medication can cause dizziness and slow your breathing. It can e garrison be fatal. Don t drink alcohol while taking pain medication. Pain medication can slow your reflexes. Don t drive or operate machinery while taking pain medication. If your health care provider advises you to take acetaminophen, the generic name for Tyleno l and other brand-name pain relievers, to help relieve your pain, ask for a daily dose. Judit mber that acetaminophen or other pain relievers may interact with prescription medicines or other nqsh-oxk-rdcbqny (OTC) drugs. The FDA recommends reading OTC medication labels careful ly to clearly understand the list of active ingredients, directions, and any precautions to help avoid taking too muchacetaminophen. If you have questions, ask your pharmacist or [facility] care provider. Managing Nausea Some people have an upset stomach after surgery. This is often due to anesthesia, pain, sushma n medications, or the stress of surgery. The following tips will help you manage nausea and get good nutrition as you recover. If you were on a special diet before surgery, ask your do ctor if you should follow it during recovery. These tips may help: Don t push yourself to eat. Your body will tell you what to eat and when. Start off with clear liquids and soup. They are easier to digest. Progress to semisolids (mashed potatoes, applesauce, and gelatin) as you feel ready. Slowly move to solid foods. Don t eat fatty, rich, or spicy foods at first. Don t force yourself to have three large meals a day. Instead, eat smaller amounts mor e often. Take pain medications with a small amount of solid food, such as crackers or toast to av oid nausea. Call Your Surgeon If You still have pain an hour after taking medication (it may not be strong enough). You feel too sleepy, dizzy, or groggy (medication may be too strong). You have side effects like nausea, vomiting, or skin changes (rash, itching, or hives). [phone] [employer] [address] [place] [address], [place] [address]. All righ ts reserved. This information is not intended as a substitute for professional medical care. Always follow your healthcare professional's instructions. documented in this encounter Medications at Time [...] documented as of this encounter H&P Notes Chalino Chiu MD - 07/28/2014 3:48 PM PST [facility] ADMIT HISTORY AND PHYSICAL Primary Care Physician: Davis Ivan PATIENT NAME: Thea Carmona : 1945 TODAY'S DATE: 07/28/2014 CHIEF COMPLAINT: RIGHt lung carcinoma REASON FOR CONSULTATION: Power port placement History OF PRESENT ILLNESS: I was asked by Dr. Chino to consult on this patient for the [facility] surgery team. Thea Carmona is a 69 y.o. female with RIGHt lung carcinoma. Has had RIGHT lung jones rgraquel Mace in [place]. Now presents with plans for chemotherapy and radiation therapy. States she is on Plavix. PAST MEDICAL HISTORY Past Medical History Diagnosis Date COPD (chronic obstructive pulmonary disease) ([facility]) on albuterol Spondylolisthesis of cervical region Spinal stenosis has tried cortisone injections Osteoporosis Depression Pneumonia 2008 hospitalized 5 days Rheumatoid arthritis(714.0) ([facility]) on prednisone and methotrexate, Dr. Lewis [place] Hyperlipidemia on simvastatin Hypertension on clonidine and [...] no CPAP Full dentures upper & lower PAST SURGICAL HISTORY Past Surgical History Procedure Laterality Date Hysterectomy Cholecystectomy Cervical spine surgery 2013 Bladder suspension Shoulder surgery Thumb surgery Shoulder surgery right shoulder Tongue surgery benign per pt Lung biopsy 07/21/13 right lower lobe Lobectomy 09/16/13 right lower lobe Back surgery 03/2014 Bronchoscopy 07/11/2014 EBUS with right hilar LN biopsy, [facility] Dr. [place] MEDICATIONS PRIOR TO ADMISSION Prior to Admission medications Medication Sig Start Date End Date Taking? Authorizing Provider albuterol 2.5 mg/3 mL nebulizer solution Take 2.5 mg by nebulization every 6 hours as neede d. Yes Historical Provider, albuterol 90 mcg/puff inhaler Inhale 2 puffs into the lungs every 6 hours as needed for Whe ezing or Shortness of Breath. 07/17/14 Yes Ayana Blandon MD aspirin 81 MG tablet Take 81 mg by mouth Daily. Yes Historical Provider, budesonide-formoterol (SYMBICORT) 160-4.5 mcg/puff inhaler Inhale 2 puffs into the lungs 2 times daily. 08/22/13 Yes Ayana Blandon MD cholecalciferol (VITAMIN D-3) 1,000 units capsule Take 1,000 Units by mouth Daily. Yes Va storical Provider, clopidogrel (PLAVIX) 75 mg tablet Take 75 mg by mouth Daily. Yes Historical Provider, diazepam (VALIUM) 2 mg tablet Take 2 mg by mouth nightly as needed. Yes Historical Provid erMD ferrous sulfate (IRON) 28 MG TABS Take 28 mg by mouth Daily. Yes Historical Provider, folic acid 1 mg tablet Take 1 mg by mouth Daily. Yes Historical ProviderMD HYDROmorphone (DILAUDID) 4 MG tablet Take 4 mg by mouth every 6 hours as needed. Yes Hist orical Provider, levothyroxine (SYNTHROID) 100 mcg tablet Take 75 mcg by mouth every morning (before break). Yes Historical Provider, Magnesium 100 MG CAPS Take by mouth Daily. Yes Historical Provider, methotrexate 2.5 mg tablet Take 25 mg by mouth Once a week. Yes Historical Provider, omeprazole (PRILOSEC) 20 mg capsule Take 20 mg by mouth Twice daily breakfast/Bedtime. Shoaib noguera Historical Provider, POTASSIUM GLUCONATE Take 1 tablet by mouth Daily. Yes Historical Provider, predniSONE (DELTASONE) 5 mg tablet Take 10 mg by mouth Daily. Yes Historical Provider, Respiratory Therapy Supplies [facility] ResMed S9 auto CPAP 5-9 cm H2O. Heater and Humidifier. Al l necessary supplies. AHI 11.6. Diagnosis Code(s)327.23, also has co morbid hypertension, hi story of stroke. Length of Need 99 months. Please send order to [facility]. 08/22/13 Shoaib Blandon MD simvastatin (ZOCOR) 40 mg tablet Take 40 mg by mouth nightly. Yes Historical Provider, venlafaxine (EFFEXOR) 75 MG tablet Take 37.5 mg by mouth 2 times daily. Yes Historical Pr MD fabio CURRENT MEDICATIONS No current facility-administered medications for this encounter. ALLERGIES No Known Allergies FAMILY HISTORY family history includes Alcohol abuse in her brother; COPD in her sister; Cancer in her fat her; Lung cancer in her brother; Tobacco Use in her brother and sister. SOCIAL HISTORY The pt reports that she quit smoking about 23 months ago. Her smoking use included Cigaret margarita. She has a 50 pack-year smoking history. She has never used smokeless tobacco. She repor ts that she does not drink alcohol or use illicit drugs. REVIEW OF SYSTEMS Fourteen point review of symptoms was performed. Pertinent positive and negatives per HPI. and All other systems were reviewed and were negative. PHYSICAL EXAM Temp: 36.5 C (97.7 F) BP: 159/70 mmHg Pulse: 73 Resp: 16 SpO2: 94 % on Wt. Admission: Weight: 68.947 kg (152 lb) Constitutional : alert, appears older than stated age and Well developed, well nourished, n o acute distress, non-toxic appearance Eyes: PERRL, conjunctiva normal HENT: atraumatic, external ears normal, Nares normal. Septum midline. Mucosa normal. No drainage or sinus tenderness., nose normal, septum midline, oropharynx moist, no pharyngeal exudates, No cervical spine bony tenderness, crepitance, or stepoff Respiratory : full breath sounds bilateral, Some expiratory wheeze on LEFT Cardiovascular : Regular rate and rhythm GI: soft, non-tender; bowel sounds normal; no masses, no organomegaly : No costovertebral angle tenderness Musculoskeletal : No edema, no tenderness, no deformities and Back - no tenderness Integument : Well hydrated, no obvious lesions on exposed skin Lymphatic : no lymphadenopathy noted Neurologic : Alert & oriented x 3, CN 2-12 normal, normal motor function, normal sensory f unction, no focal deficits noted Psychiatric : Speech and behavior appropriate and Normal affect Diagnostic Studies: Laboratory studies and imaging were personally reviewed by me. Chemistry: Hematology: IMPRESSION: 1. RIGHt lung carcinoma 2. History of stroke on Plavix PLAN: 1. Recommend proceeding with Power port placement, probably on LEFT IJ. Risks and possib le complications including bleeding (slightly higher due to Plavix) , infection, pneumothor ax, hemothorax, catheter/line infection or occlusion, cardiac arrhthmia, OR, stroke or was explained. No guarantees given or implied. Electronically Signed by: Chalino Chiu MD, 07/28/2014 15:48 [facility] [place]eld, Chalino Gu MD - 07/28/2014 3:43 PM PST [place], [place] SURGICAL INTERIM HISTORY AND PHYSICAL UPDATE Pt. Name/Age/: Thea Carmona 69 y.o. 1945 Date of admission: 07/28/2014 The current H&P was reviewed. The patient was reexamined. Re-evaluation of the patient co nfirms the necessity for the scheduled procedure. No change has occurred in the patient s condition since the H&P was completed less than 30 days ago. LABS: Lab Results Component Value Date NA 136 01/09/2014 K 3.7 01/09/2014 CL 104 01/09/2014 CO2 21* 01/09/2014 BUN 10 07/25/2014 CREA 0.80 07/25/2014 Lab Results Component Value Date NA 136 01/09/2014 K 3.7 01/09/2014 CL 104 01/09/2014 CO2 21* 01/09/2014 BUN 10 07/25/2014 CREA 0.80 07/25/2014 GLU 116* 01/09/2014 BILITOT 0.5 01/09/2014 AST 24 01/09/2014 ALKPHOS 57 01/09/2014 Lab Results Component Value Date WBC 5.5 01/09/2014 HGB 12.1 01/09/2014 HCT 38.0 01/09/2014 MCV 90.0 01/09/2014 PLT 221 01/09/2014 No results found for this basename: INR, PROTIME PHYSICIAN'S VERIFICATION OF INFORMED CONSENT The patient was counseled regarding the procedure, its indications, risks, potential compli cations and alternatives and any questions were answered. Consent was obtained. Plan LEFT ch est placement due to RIGHT lung carcinoma. PHYSICIAN'S VERIFICATION OF INFORMED CONSENT FOR BLOOD TRANSFUSION There is not a reasonable possibility that blood transfusion will be necessary as a result of the patient's procedure. Electronically signed by: Chalino Chiu, 07/28/2014 15:45 [facility] Adelita Baird MD - 07/25/2014 2:40 PM PST Hem-Onc Progress Note [facility] Patient name:Thea Carmona : 1945 Age: 69 y.o. CSN: [id number] Date of Service: 07/25/2014 Identifying Statement: Thea Carmona is a 69 y.o. female from [facility] with clinical stage II, pathologic stage IB [...] lewis 2.CT-guided biopsy by interventional radiology at [facility] of the right lung massshows squamous [...] by Dr. Mace , thoracic surgeon at [facility] for consideration of broncho scopy, right [facility] Hyperlipidemia on simvastatin Hypertension on clonidine and lisinopril Hypothyroidism GERD (gastroesophageal reflux disease) Stroke ([facility]) 2006 Stroke ([facility]) 2007 Squamous cell carcinoma of lung ([facility]) 07/2013 right lower lobe MARCE (obstructive sleep [...] mg by mouth Daily. RESPIRATORY THERAPY SUPPLIES [facility] ResMed S9 auto CPAP 5-9 cm H2O. Heater and Humidifier . All necessary supplies. AHI 11.6. Diagnosis Code(s)327.23, also has co morbid hypertension , history of stroke. Length of Need 99 months. Please send order to [facility]. RESPIRATORY THERAPY SUPPLIES [facility] Respironics autotitrating CPAP at 5-9 cm H2O [...] >=60 mL/min/1.73m2 Imaging: PET/CT scan June 2014: [facility]: Necrotic right lung lesion wit h [...] to proceed port placement .all records from [facility] were reviewed Total time face to face discussion with the patient and family was 45 minutes, more than 5 0% of the time was spent counseling and coordination of care. Adelita Lu MD Portions of this chart may have been created with [employer] voice recognition software. Occasi onal wrong-word or sound-alike substitutions may have occurred due to the inherent guzman itations of voice recognition software. Please read the chart carefully and recognize, using context, where these substitutions have occurred. documented in this enc [facility] Nursing Notes Rosetta Jacobo RN - 07/27/2014 1:21 PM PSTDuring preop phone call Mood Disorder Screeni ng 7. Pt. States she does not feel like harming herself. Says she has good help at home; h as 2 caregivers. Offered support while here and speaking with the dot etcher apprentice, social work msw, e tc. Pt. Declines. doc umented in this encounter Miscellaneous Notes Op Note - Chalino Chiu MD - 07/28[place]2014 5:[place] Oper[place] Report Pt. Name/Age/: Thea Carmona 69 y.o. 1945 Med. Record Number: [id number] Date of admission: 07/28/2014 Date of Operation/Procedure: 07/28/2014 Preoperative Diagnosis: 1. RIGHT lung carcinoma Postoperative Diagnosis: 1. same Surgeon: Chalino Chiu MD Anesthesia Provider(s): Anesthesiologist: Santosh Barahona MD Anesthesia Type: General Procedure: 1. PLACEMENT OF VASCULAR ACCESS RIGHT INTERNAL JUGULAR VEIN ( CPT* 87234) 2. Monitor fluoroscopy (CPT 79129) Operative Indications: Thea Carmona is a 69 y.o. year old female who has right dipti ng carcinoma requiring chemotherapy. The indications, alternatives, risks and benefits were explained in detail. Risks include bleeding, infection, damage to surrounding structures, hemo/pneumothorax, additional procedures, life-threatening events, and unforeseen complica tions. The patient and/or guardian understands and consents to proceed. Operative Findings: LEFT IJ normal size and position. Power port placed LEFT side due to RIGHT lung cancer. Operation: In the same day surgery holding area the procedure was once again reviewed with the patient . The skin of the LEFT chest side was marked with my initials using felt pen. The patient was brought to the operating room after the nurse had confirmed the patient collette ntification, patient allergies, and consent for signatures and procedure. The patient was placed in the supine position on the operating table and General laryngeal mask anesthesia w as achieved. The patient s upper chest and neck was prepped with ChloroPrep and draped in a sterile manner. A pause for patient identification, procedure identification and review of allergies was pe rformed. Xylocaine 1% plain was infiltrated in the operative area. With the patient in a Trendelenb erg, (head down) position, using Ultrasound observation, the Micropuncture needle and then guide wire were placed in the LEFT internal jugular vein. Under fluoroscopic visualizati on, and using Seldinger technique, the larger guide wire was advanced to the mediastinum. The tip was in the appropriate position to the RIGHT of the mediastinum. The dilators were passed over the guide wire and the guide wire and dilator was removed, leaving the peel-apar t sheath which was left in position. The radiopaque ChronoFlex polyurethane 8 Fr catheter was then introduced and its tip was p laced at the fluoroscopic level of mid RIGHT atrium. Skin incision was made and a subcutaneous pocket was created in the anterior chest. Using the tunneling device, the catheter was dragged through the subcutaneous tissue to the pocke t. The catheter was trimmed to the appropriate length and fastened to the port using the u sual adapter. Care was taken to keep the black radiopaque ring on the opposite side to the P owerPort device. The PowerPort was sutured to the subcutaneous tissues using 3-0 Prolene. The position was confirmed with fluoroscopy. Blood was aspirated from the Port and Heparin ized saline was flushed in the PowerPort/catheter using the 22 guage non-coring needle. Bot h wounds were closed with interrupted 4-0 Vicryl and skin edges with running subcuticular 4- 0 Vicryl. Gauze dressings and tape were applied. [facility] in stable condition. Estimated Blood Loss: 4 ml Transfused: no Drains: none Specimen (s): * No specimens in log * Complications: none Disposition: PACU - hemodynamically stable. Patient Condition: stable Electronically Signed by: Chalino Chiu MD, 07/28/2014 17:16 documented in this encounter Plan of Treatment +--------+---------+ + + + | Date | Type | Specialty | Care Team | Description | +--------+---------+ + + + | 03/06/ | Office | Rheumatology | Santosh Sumner, | | | 2019 | Visit | | [address] | | | | | | [facility] | | | | | | [place] [address] | | | | | | [phone] | | | | | | | | +--------+---------+ + + + + +------+--------+ + + | Name | Type | Priori | Associated Diagnoses | Order Schedule | | | | ty | | | + +------+--------+ + + | Basic Metabolic | Lab | STAT | | As Needed for 1 | | Panel | | | | Occurrences starting | | | | | | 07/28/2014 | + +------+--------+ + + documented as of this encounter Procedures + +--------+ + + + | Procedure Name | Priori | Date/Time | Associated Diagnosis | Comments | | | ty | | | | + +--------+ + + + | XR CHEST AP PORTABLE | STAT | 07/28/2014 | | Results for this | | | | 5:35 PM | | procedure are in the | | | | PST | | results section. | + +--------+ + + + | INSERTION CATHETER | | 07/28/2014 | Malignant neoplasm | | | PORTACATH | | 3:47 PM | of bronchus and | | | | | PST | lung, unspecified | | | | | | site (HCC) | | + +--------+ + + + documented in this encounter Results XR Chest AP Portable (07/28/2014 5:35 PM PST) + + | Specimen | + + | | + + + + + | Narrative | Performed At | + + + | XR CHEST AP PORTABLE 07/28/2014 5:34 PM HISTORY: LEFT Power Port. | [facility] | | COMPARISON: Multiple priors. Findings: There has been | | | interval placement of a left central line from IJ approach with tip | | | in the distal SVC. Heart size is normal. Aorta is normal. Mediastinum | | | is unremarkable. Central pulmonary vasculature is normal. There | | | remains blunting of the right costophrenic angle that could represent | | | scarring versus a chronic small right pleural effusion. A small | | | nodular density is seen in the right lower lung that could represent | | | overlapping vasculature. The left lung is grossly clear. There is no | | | evidence for pneumothorax. No acute osseous abnormalities are seen. | | | Shortening of the right clavicle is visualized that could be due to | | | prior acromioplasty. IMPRESSION - Interval placement of left | | | central line with tip in distal SVC. Stable blunting of right | | | costophrenic angle, possibly due to scarring versus chronic small | | | right pleural effusion. Small nodular density in the right lower | | | chest that could represent overlapping vasculature. However, PA and | | | lateral views the chest can be obtained for further evaluation if | | | clinically indicated. Dictated and Signed by: Matheus Kapadia MD | | | Electronically signed: 08/01/2014 3:25 PM | | + + + + + | Procedure Note | + + | Fabián, Rad Results In - 08/01/2014 3:28 PM PST XR CHEST AP PORTABLE 07/28/2014 5:34 PM | | | | HISTORY: LEFT Power Port. | | | | COMPARISON: Multiple priors. | | | | Findings: | | There has been interval placement of a left central line from IJ approach with | | tip in the distal SVC. Heart size is normal. Aorta is normal. Mediastinum is | | unremarkable. Central pulmonary vasculature is normal. There remains blunting of | | the right costophrenic angle that could represent scarring versus a chronic | | small right pleural effusion. A small nodular density is seen in the right lower | | lung that could represent overlapping vasculature. The left lung is grossly | | clear. There is no evidence for pneumothorax. No acute osseous abnormalities are | | seen. Shortening of the right clavicle is visualized that could be due to prior | | acromioplasty. | | | | IMPRESSION - | | Interval placement of left central line with tip in distal SVC. | | | | Stable blunting of right costophrenic angle, possibly due to scarring versus | | chronic small right pleural effusion. | | | | Small nodular density in the right lower chest that could represent overlapping | | vasculature. However, PA and lateral views the chest can be obtained for further | | evaluation if clinically indicated. | | | | Dictated and Signed by: Matheus Kapadia MD | | Electronically signed: 08/01/2014 3:25 PM | + + + +---------+ + + | Performing | Address | City/State/Zipcode | Phone Number | | Organization | | | | + +---------+ + + | [facility] | | | | + +---------+ + + documented in this encounter Visit Diagnoses + + | Diagnosis | + + | Malignant neoplasm of bronchus and lung, unspecified site | + + documented in this encounter Administered Medications + +--------+ +--------+------+------+ | Medication Order | MAR | Action | Dose | Rate | Site | | | Action | Date | | | | + +--------+ +--------+------+------+ | heparin 1,000 units/mL | Given | 07/28/19 | 5,000 | | | | injection PRN, Starting Thu | | 4:20 | Units | | | | 07/28/14 at 1620, Intra-op | | PM PST | | | | + +--------+ +--------+------+------+ +---+---+ | | | +---+---+ + +-------+ +--------+---+---+ | HYDROmorphone (DILAUDID) | Given | 07/28/19 | 0.5 mg | | | | injection 0.2-0.5 mg 0.2-0.5 mg, | | 15 5:44 | | | | | Intravenous, EVERY 5 MIN PRN, | | PM PST | | | | | Pain, Starting Thu07/28/14 at | | | | | | | 1701, Maximum total dose 4 mg. | | | | | | | PACU IV Narcotic Priority: Only | | | | | | | use fentanyl for immediate | | | | | | | post-op pain (one dose) or | | | | | | | breakthrough pain when any other | | | | | | | IV narcotics ordered have been | | | | | | | ineffective (if ordered). If | | | | | | | both morphine and hydromorphone | | | | | | | are ordered, use morphine first, | | | | | | | and use hydromporphone if | | | | | | | morphine ineffective., | | | | | | | Recovery/Phase I | | | | | | + +-------+ +--------+---+---+ +-------+ +--------+---+---+ | Given | 07/28/19 | 0.5 mg | | | | | 15 5:36 | | | | | | PM PST | | | | +-------+ +--------+---+---+ +---+---+ | | | +---+---+ + +-------+ +-------+---+ + | lidocaine 1% injection PRN, | Given | 07/28/19 | 5 mLs | | Surgical | | Starting Thu07/28/14 at 1619, | | 15 4:19 | | | Site | | Intra-op | | PM PST | | | | + +-------+ +-------+---+ + +---+---+ | | | +---+---+ + +-------+ +---------+---+---+ | sodium chloride bacteriostatic | Given | 07/28/19 | 100 mLs | | | | 0.9% injection PRN, Starting Fri | | 15 4:20 | | | | | 07/28/14 at 1620, Intra-op | | PM PST | | | | + +-------+ +---------+---+---+ +---+---+ | | | +---+---+ documented in this encounter
--- OUTSIDE RECORDS SUMMARY | ~2019-12-28 | XMS | Encounter Summary ---
Demographics + + + | Address | [address] | | | [place] [address] | + + + | Home Phone | | + + + | Preferred Language | Unknown | + + + | Marital Status | | + + + | Anabaptism Affiliation | Unknown | + + + | Race | Unknown | + + + | Ethnic Group | Unknown | + + + Author + + + | Author | [facility] | | | and [place] | + + + | Organization | [facility] | | [...] [address] | | | | | [address] | | + + + + + Care Team Providers + +------+ + | Care Mold Release Worker Name | Role | Phone | + +------+ + | Davis Ivan MD | PCP | | + +------+ + Reason for Visit +---------+--------+ + | Reason | Onset | Comments | | | Date | | +---------+--------+ + | Results | 09/07/ | ultrasound | | | 2014 | | +---------+--------+ + Encounter Details +--------+ + + + + | Date | Type | Department | Care Team | Description | +--------+ + + + + | 09/07/ | Telephone | [facility] | Claudia, | Results (ultrasound) | | 2014 | | PULMONARY [address] | Ayana Looney MD | | | | | [place], | | | | | | [place] [address] | | | | | | [phone] | | | +--------+ + + + [...] this encounter Miscellaneous Notes Telephone Encounter - Ayana Taylor MD - 09/07/2014 4:50 PM PDTNoted and thanks. elephone Encoun Sara Richardson RN - 09/07/2014 4:05 PM PDTSteve called to inform that Thea's ult rasound was a negative study and showed no DVT. He will inform the patient and let her go ho me. documented in thi s encounter Plan of [...] | | | | | [place] [address] | | | | | | [phone] | | | | | | | | +--------+---------+ + + + documented as of this encounter Visit Diagnoses Not on filedocumented in this encounter"
--- OUTSIDE RECORDS SUMMARY | ~2019-12-28 | XMS | Encounter Summary ---
Demographics + + + | Address | [address] | | | [place] [address] | + + + | Home Phone | | + + + | Preferred Language | Unknown | + + + | Marital Status | | + + + | Congregational Affiliation | Unknown | + + + [...] [place] | | | | | [address] | | + + + + + Care Team Providers + +------+ + | Care Operations Section Manager Name | Role | Phone | + [...] | +--------+ + + + + | 07/28/ | Hospital | [facility] | Chalino Chiu | Recurrent lung | | 2015 | Encounter | MED CTR XRAY [address] | MD Brittanie, FACS [address] | squamous cell | | | | [place] | [address] [place] | carcinoma, | | | | [place] [address] | [place] [address] | unspecified | | | | [phone] | [phone] | laterality (HCC) | | | | [...] | 2020 | Visit | | [address] | | | | | | [address] [facility] | | | | | | [place] [address] | | | | | | [phone] | | | | | | | | +--------+---------+ + + + documented as of this encounter Procedures + +--------+ + + + | Procedure Name | Priori | Date/Time | Associated Diagnosis | Comments | | | ty | | | | + +--------+ + + + | SHEFALI HERNANDEZ STATS NO | Routin | 07/28/2014 | Recurrent lung | Results for this | | CHARGE | e | 4:58 PM | squamous cell | procedure are in the | | | | PST | carcinoma, | results section. | | | | | unspecified | | | | | | laterality (HCC) | | + +--------+ + + + documented in this encounter Results SHEFALI Noyola Stats No Charge (07/28/2014 4:58 PM PST) + + | Specimen | + + | | + + + + + | Narrative | Performed At | + + + | No Radiologist interpretation, please see Chart Review. | [facility] | | | [facility] | | | [facility] | | | - IMAGING | + + + + + + + + | Performing | Address | City/State/Zipcode | Phone Number | | Organization | | | | + + + + + | [facility] | [address] | [place] | [phone] | | [facility] | | [address] | | | - IMAGING | | | | + + + + + documented in this encounter Visit Diagnoses + + | Diagnosis | + + | Recurrent lung squamous cell carcinoma, unspecified laterality (HCC) | + + documented in this encounter"
--- OUTSIDE RECORDS SUMMARY | ~2019-12-28 | XMS | Encounter Summary ---
Demographics + + + | Address | [address] | | | [place] [address] | + + + | Home Phone | | + + + | Preferred Language | Unknown | + + + | Marital Status | | + + + | Latter-Day Affiliation | Unknown | + + + | Race | Unknown | + + + | Ethnic Group | Unknown | + + + Author + + + | Author | [facility] | | | and [place] | + + + | Organization | [facility] | | | [...] [place] | | | | | [address] | | + + + + + Care Team Providers + +------+ + | Care Line Installer Repairer Name | Role | Phone | + [...] Description | +--------+--------+ + + + | 01/20/ | Refill | [facility] | Abeba Douglas MD | Medication Refill | | 2019 | | RHEUMATOLOGY [address] | [address] | | | | | [address] | [address] [place], [place] | | | | | [place], [place] | [address] | | | | | [address] | | | | | | [phone] | | | +--------+--------+ + + + [...] this encounter Miscellaneous Notes Telephone Encounter - Kyle Hawk, Musician Instrumental - 01/21/2019 1:02 PM PDTMedic ation requested: methotrexate By:/ Sophia Last filled:12/15/2018 Last Labs:10/28/2018 Last visit: 10/28/2018 Next visit: 01/28/2019 Eye exam:n/a No result notes or see result note: Last chart note stated: The patient returns to the clinic for a follow up appointment. She is on 15mg Methotrexate weekly with 1mg Folic Acid daily and doing well. She was on 4 tabs p er the patient and since increasing to the 6 tabs she has noticed a significant improvement. She states otherwise her joint pain and stiffness are significant better. We will make no c hanges and see her back in 3 months and update blood work. Please advise do cumented in this encounter Plan of Treatment +--------+---------+ + + + | Date | Type | Specialty | Care Team | Description | +--------+---------+ + + + | 03/06/ | Office | Rheumatology | Santosh Sumner, | | | 2019 | Visit | | [address] | | | | | | [place] | | | | | | [place] [address] | | | | | | [phone] | | | | | | | | +--------+---------+ + + + documented as of this encounter Visit Diagnoses Not on filedocumented in this encounter"
--- OUTSIDE RECORDS SUMMARY | ~2019-12-28 | XMS | Encounter Summary ---
Demographics + + + | Address | [address] | | | [place] [address] | + + + | Home Phone [...] + + | Author | [facility] | | | and [place] | + + + | Organization | [facility] | | [...] [place] | | | | | [address] | | + + + + + Care Team Providers + +------+ + | Care Hospital Aide Name | Role | Phone | + +------+ + | Caitlin Chino MD | PCP | | + +------+ + Encounter Details +--------+ + + + + | Date | Type | Department | Care Team | Description | +--------+ + + + + | 09/08/ | Imaging | [facility] | Provider, | | | 2019 | Exam | MED CTR EXTERNAL | MD [address] | | | | | IMAGING [address] | [address] | | | | | [address] | [place] [address] | | | | | [place] [address] | | | | | | [phone] | | | +--------+ + + + [...] | 2019 | Visit | | [address] | | | | | | [place] | | | | | | [place] [address] | | | | | | [phone] | | | | | | | | +--------+---------+ + + + documented as of this encounter Procedures + +--------+ + + + | Procedure Name | Priori | Date/Time | Associated Diagnosis | Comments | | | ty | | | | + +--------+ + + + | PET CT SKULL BASE TO | Routin | 06/27/2015 | | Results for this | | MID THIGH | e | 11:10 AM | | procedure are in the | | | | PST | | results section. | + +--------+ + + + documented in this encounter Results PET CT Skull Base To Mid Thigh (06/27/2015 11:10 AM PST) + + | Specimen | + [...]
--- OUTSIDE RECORDS SUMMARY | ~2019-12-28 | XMS | Encounter Summary ---
Demographics + + + | Address | [address] | | | [place] [address] | + + + | Home Phone | | + + + | Preferred Language | Unknown | + + + | Marital Status | | + + + | Anabaptism Affiliation | Unknown | + + + | Race | Unknown | + + + | Ethnic Group | Unknown | + + + Author + + + | Author | [facility] | | | and [place] | + + + | Organization | [facility] | | [...] [place] | | | | | [address] | | + + + + + Care Team Providers + +------+ + | Care Strategic Business Development Name | Role | Phone | + +------+ + | Davis Ivan MD | PCP | | + +------+ + Reason for Visit + + + | Reason | Comments | + + + | Initial Assessment | | + + + Encounter Details +--------+ + + + + | Date | Type | Department | Care Team | Description | +--------+ + + + + | 11/29/ | Hospital | [facility] | Offenstein, | Pharyngeal dysphagia | | 2016 | Encounter | MED CTR XRAY [address] | Ayana Looney MD | (Primary Dx); | | | | [place] | [address] | Recurrent pneumonia; | | | | [place] [address] | M, Speech | Oropharyngeal | | | | [phone] | Pathologist [address] | dysphagia | | | | | [address] [place] | | | | | | [place] [address] | | | | | | [phone] | | | | | | | | | | | | Kristofer Silveira Rad | | +--------+ + + + + [...] 3 mLs by | 360 mL | 11 | 06/12/19 | | | albuterol-ipratropiu | nebulization 4 times | | | 16 | 7 | | m (DUONEB) 2.5-0.5 | daily. [...] | | | | type ([facility]) | | | | | | + + + +---------+ + + | aspirin 81 MG | Take 81 mg by mouth | | 0 | | | | tablet | Daily. | | | | 7 | + + + +---------+ + + | Blood Pressure | Please provide | 1 each | 0 | 09/07/19 | | | Monitoring (BLOOD | patient with | | | 16 | 7 | | PRESSURE CUFF) MISC | appropriate sized | | | | | | | blood pressure cuff | | | | | | | for 12.5" arm. Dx: | | | | | | | Hypertension I10 | | | | | | | CASIE: 99 months | | | | [...] 1 tablet by | | 0 | 11/02/19 | | | diphenoxylate-atropi | mouth AFTER EACH | | | 16 | 8 | | ne (LOMOTIL) | LOOSE STOOL IF | | | | | | 2.5-0.025 mg per | NEEDED FOR DIARHEA | | | | | | tablet [...] + + + +---------+ + + | GILOTRIF 40 MG | Take one tablet | | 0 | 10/03/19 | | | tablet | daily | | | 16 | 6 | + + + +---------+ [...] +---------+ + + | HYDROmorphone | Take one tablet | | 0 | 10/19/19 | | | (DILAUDID) 8 mg | every 6 hours as | | | 16 | 8 | | tablet | needed | | | | | + + [...] | 2019 | Visit | | [address] | | | | | | [place] | | | | | | [place] [address] | | | | | | [phone] | | | | | | | | +--------+---------+ + + + documented as of this encounter Procedures + +--------+ + + + | Procedure Name | Priori | Date/Time | Associated Diagnosis | Comments | | | ty | | | | + +--------+ + + + | FL VIDEO SWALLOW W | Routin | 11/30/2015 | Recurrent | Results for this | | SPEECH | e | 1:37 PM | pneumonia | procedure are in the | | | | PDT | Oropharyngeal | results section. | | | | | dysphagia | | + +--------+ + + + documented in this encounter Results FL Video Swallow w Speech (11/30/2015 1:37 PM PDT) + + | Specimen | + + | | + + + + + | Narrative | Performed At | + + + | MODIFIED BARIUM SWALLOW 11/30/2015 1:36 PM CLINICAL HISTORY: | [facility] | | recurrent pneumonia, notes oropharyngeal dysphagia at times, like | [facility] | | with rice COMPARISON: ESOPHAGRAM SEPTEMBER 2014 TECHNIQUE: In the | [facility] | | upright position, the patient was challenged with various barium | - IMAGING | | laden foods. Fluoroscopy was utilized to evaluate swallow function. | | | The exam was directed by the speech therapist. FINDINGS: Mild | | | residue was present along the hard palate and posterior tongue blade | | | after swallowing. Some loss of bolus control to the floor of the | | | mouth was noted with liquids via cup. Reduced tongue base | | | retraction was noted with solids and liquids. There was a delayed | | | swallow trigger with large sips of thin liquid and mixed texture. | | | There was intermittent reduction in hyolaryngeal excursion and | | | mildly reduced pharyngeal contraction. Intermittent mild vallecular | | | residue was present after swallowing. In and out laryngeal | | | penetration was noted with large sips of thin liquid, with subsequent | | | cough. Repeated swallows assisted with clearing pharyngeal residue. | | | A Zenker's diverticulum was again identified near the level of the | | | cricopharyngeus, with variable residue noted within the diverticulum | | | and persisting despite repeated swallows. Some material notably | | | passed from the diverticulum above the upper esophageal sphincter and | | | into the piriform sinuses. IMPRESSION - 1. MILD TO MODERATE | | | DYSPHAGIA WITH RISK FOR ASPIRATION. PLEASE SEE THE SPEECH THERAPY | | | REPORT FOR FURTHER DETAILS. 2. ZENKER'S DIVERTICULUM. | | | Dictated and Signed by: Herminio Levi MD Electronically signed: | | | 12/04/2015 2:14 PM | | + + + + + | Procedure Note | + + | Fabián, Rad Results In - 12/04/2015 2:18 PM PDT MODIFIED BARIUM SWALLOW 11/30/2015 1:36 | | PMCLINICAL HISTORY: recurrent pneumonia, notes oropharyngeal dysphagia at times,like | | with riceCOMPARISON: ESOPHAGRAM SEPTEMBER 2014TECHNIQUE: In the upright position, the patient | | was challenged with variousbarium laden foods. Fluoroscopy was utilized to evaluate | | swallow function. Theexam was directed by the speech therapist.FINDINGS: Mild residue | | was present along the hard palate and posterior tongueblade after swallowing. Some loss | | of bolus control to the floor of the mouthwas noted with liquids via cup. Reduced | | tongue base retraction was noted withsolids and liquids. There was a delayed swallow | | trigger with large sips of thinliquid and mixed texture. There was intermittent | | reduction in hyolaryngealexcursion and mildly reduced pharyngeal contraction. | | Intermittent mildvallecular residue was present after swallowing. In and out | | laryngealpenetration was noted with large sips of thin liquid, with subsequent cough. | | Repeated swallows assisted with clearing pharyngeal residue. A Zenker'sdiverticulum was | | again identified near the level of the cricopharyngeus, withvariable residue noted | | within the diverticulum and persisting despite repeatedswallows. Some material notably | | passed from the diverticulum above the upperesophageal sphincter and into the piriform | | sinuses.IMPRESSION -1. MILD TO MODERATE DYSPHAGIA WITH RISK FOR ASPIRATION. PLEASE | | SEE THE SPEECHTHERAPY REPORT FOR FURTHER DETAILS.2. ZENKER'S DIVERTICULUM.Dictated and | | Signed by: Herminio Levi MD Electronically signed: 12/04/2015 2:14 PM | |Repeated swallows assisted with clearing pharyngeal residue. A Zenker's | |diverticulum was again identified near the level of the cricopharyngeus, with | |variable residue noted within the diverticulum and persisting despite repeated | |swallows. Some material notably passed from the diverticulum above the upper | |esophageal sphincter and into the piriform sinuses. | | | |IMPRESSION - | |1. MILD TO MODERATE DYSPHAGIA WITH RISK FOR ASPIRATION. PLEASE SEE THE SPEECH | |THERAPY REPORT FOR FURTHER DETAILS. | | | |2. ZENKER'S DIVERTICULUM. | | | |Dictated and Signed by: Herminio Levi MD | | Electronically signed: 12/04/2015 2:14 PM | + + + + + + + | Performing | Address | City/State[facility] | Phone Number | | Organization | | | | + + + + + | [facility] | [address] | [place] | [phone] | | [facility] | | [address] | | | - IMAGING | | | | + + + + + documented in this encounter Visit Diagnoses + + | Diagnosis | + + | Pharyngeal dysphagia - Primary Dysphagia, pharyngeal phase | + + | Recurrent pneumonia Pneumonia, organism unspecified | + + | Oropharyngeal dysphagia Dysphagia, oropharyngeal phase | + + documented in this encounter
--- OUTSIDE RECORDS SUMMARY | ~2019-12-28 | XMS | Encounter Summary ---
Demographics + + + | Address | [address] | | | [place] [address] | + + + | Home Phone | | + + + | Preferred Language | Unknown | + + + | Marital Status | | + + + | Spiritism Affiliation | Unknown | + + + | Race | Unknown | + + + | Ethnic Group | Unknown | + + + Author + + + | Author | [facility] | | | and [place] | + + + | Organization | [facility] | | | [...] [place] | | | | | [address] | | + + + + + Care Team Providers + +------+ + | Care Sanding Machine Tender Name | Role | Phone | + [...] + + | 09/01/ | Hospital | [facility] | Gurmeet Vargas, | Tachypnea | | 2019 | Encounter | MED CTR XRAY [address] | [address] | | | | | [place] [address] | [place] [address] | | | | | [place] [address] | [phone] | | | | | [phone] | | | +--------+ + + + [...] | | | | | | type ([facility]) | | | | | | + [...] | 2019 | Visit | | PA-C [address] | | | | | | [facility] | | | | | | [place] [address] | | | | | | [phone] | | | | | | | [...]
--- OUTSIDE RECORDS SUMMARY | ~2019-12-28 | XMS | Encounter Summary ---
Demographics + + + | Address | [address] | | | [place] [address] | + + + | Home Phone | | + + + | Preferred Language | Unknown | + + + | Marital Status | | + + + | Denominational Affiliation | Unknown | + + + | Race | Unknown | + + + | Ethnic Group | Unknown | + + + Author + + + | Author | [facility] | | | and [place] | + + + | Organization | [facility] | | [...] [place] | | | | | [address] | | + + + + + Care Team Providers + +------+ + | Care Leasing Assistant Name | Role | Phone | [...] + + | Closed | Specialty | Interventiona | Diagnoses | | | | | Services | l Radiology | Pulmonary | Offenstein, | | | | Required | | nodule | Precious B, | | | | | | Procedures | MD [address] | | | | | | [place] | [address] | | | | | | GUIDE NEEDLE | [place], | | | | | | [place] | [place] [address] | | | | | | DRAIN/INJECT | | | | | | | LARGE | | | | | | | JOINT/BURSA | | | +--------+ + + + + + Reason for Visit +--------+--------+ + | Reason | Onset | Comments | | | Date | | +--------+--------+ + | Other | 06/23/ | decision regarding biopsy | | | 2013 | | +--------+--------+ + Encounter Details +--------+ + + + + | Date | Type | Department | Care Team | Description | +--------+ + + + + | 06/23/ | Telephone | [facility] [place] | Alfred[place], | Other (decision | | 2013 | | PULMONARY [address] | Precious Looney MD | regarding biopsy) | | | | [place] [place], | | | | | | [place] [address] | | | | | | [phone] | | | +--------+ + + + [...] Telephone Encounter - Blessing Lopez RN - 06/27/2013 3:19 PM PSTCalled [facility] to schedule. Matilde said it's scheduled through radiology and all they need is the or sabra to schedule it. Faxed order with the specifics Dr Taylor wanted included, imaging re ports from 06/09/13 CT chest and cervical spine, 05/11/13 and 04/13/13 CXR, 06/09/13 progress no te, 06/20 phone note, demographics and snapshot. elephone Encounter - Blessing Lopez RN - 06/27/2013 3:17 PM PSTNotified Thea that all her records were faxed to [facility] radiology dept and they should be contacting her to schedule. If she hasn't heard from them by this week to call us or the m at [phone]. I told her she will need to stop her Plavix and aspirin for one week prio r to the procedure. She voices understanding. ddendum Note - Precious Taylor MD - 06/24/2013 3:[address] Addended by: PRECIOUS TAYLOR on: 06/24/2013 15:19 Modules accepted: Orders elephone Boyd robledo - Precious Taylor MD - 06/24/2013 3:18 PM PSTI placed an order for a referral to [facility] interventional radiology. She would need to be off of aspirin and Plavix for 1 week prior to procedure. We will need to ask what labs they will require prior to the procedure, and order. I placed what tests we would like in the procedure note, as well as why I am requesting pro cedure there in my order. We will need to send them all imaging studies as well for review. Thanks. elephone Viki Nicole RN - 06/24/2013 2:44 PM PSTPatient called back and would like to have her lung biopsy done in [place]. elephone Encounter - Sara Evans RN - 06/24/2013 2:19 PM PSTSpoke with Clement marshall. Her phone was not working earlier. She will discuss with her and call back wit h their decision of where to have the biopsy performed. elephone Encounter - Precious Taylor MD - 014 9:47 AM PSTI have reviewed this case with the radiologist (Dr. Leal), and with Dr. Columba guzman (the infectious disease ergonomics consultant). Both are in agreement that she needs to have a bi opsy, CT guided needle by interventional radiology. 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 (This has been discussed with the patient and her in clinic). I would recommend doing the biopsy in [facility] or [place]. They can choose a locat ion. We would want it sent for cytology, AFB stain and culture, fungal stain and culture and bacterial gram stain and culture. If she chooses a location, I can place the referral. Sorr rajeev for the delay getting back to them, I wanted to discuss with the appropriate people and suzanna may a thoughtful decision given the risks. CC: Dr. Ivan P STdocumented in this encounter Plan of Treatment +--------+---------+ + + + | Date | Type | Specialty | Care Team | Description | +--------+---------+ + + + | 03/06/ | Office | Rheumatology | Santosh Sumner, | | | 2019 | Visit | | [facility] [address] | | | | | | [facility] | | | | | | [place] [address] | | | | | | [phone] | | | | | | | | +--------+---------+ + + + + + +--------+ + + | Name | Type | Priori | Associated Diagnoses | Order Schedule | | | | ty | | | + + +--------+ + + | Ambulatory referral | Outpatient | Routin | Pulmonary nodule | 1 Occurrences | | to Interventional | Referral | e | | starting 06/24/2013 | | Radiology | | | | until 06/24/2014 | + + +--------+ + + documented as of this encounter Visit Diagnoses + + | Diagnosis | + + | Pulmonary nodule - Primary Solitary pulmonary nodule | + + documented in this encounter"
--- OUTSIDE RECORDS SUMMARY | ~2019-12-28 | XMS | Encounter Summary ---
Demographics + + + | Address | [address] | | | [place] [address] | + + + | Home Phone | | + + + | Preferred Language | Unknown | + + + | Marital Status | | + + + | Sikh Affiliation | Unknown | + + + | Race | Unknown | + + + | Ethnic Group | Unknown | + + + Author + + + | Author | [facility] | | | and [place] | + + + | Organization | [facility] | | [...] [address] | | | | | [address] | | + + + + + Care Team Providers + +------+ + | Care Rolloff Truck Driver Name | Role | Phone | + +------+ + | Davis Ivan MD | PCP | | + +------+ + Reason for Visit +---------+--------+ + | Reason | Onset | Comments | | | Date | | +---------+--------+ + | Results | 05/08/ | overnight oximetry | | | 2013 | | +---------+--------+ + Encounter Details +--------+ + + + + | Date | Type | Department | Care Team | Description | +--------+ + + + + | 05/08/ | Telephone | [facility] | Claudia, | Results (overnight | | 2013 | | PULMONARY [address] | Ayana Looney MD | oximetry) | | | | [place], | | | | | | [place] [address] | | | | | | [phone] | | | +--------+ + + + [...] this encounter Miscellaneous Notes Telephone Encounter - Diann Leal RN - 05/08/2014 10:20 AM PSTThea was called to in form her that her overnight oximetry "looks fine" and "no O2 needed" per Dr Taylor. Lexie mena stated clear understanding. 1 0:22 AM PSTdocumented in this encounter Plan of Treatment +--------+---------+ + + + | Date | Type | Specialty | Care Team | Description | +--------+---------+ + + + | 03/06/ | Office | Rheumatology | Santosh Sumner, | | | 2019 | Visit | | [address] | | | | | | [address] | | | | | | [place] [address] | | | | | | [phone] | | | | | | | | +--------+---------+ + + + documented as of this encounter Visit Diagnoses Not on filedocumented in this encounter
--- OUTSIDE RECORDS SUMMARY | ~2019-12-28 | XMS | Encounter Summary ---
Demographics + + + | Address | [address] | | | [place] [address] | + + + | Home Phone | | + + + | Preferred Language | Unknown | + + + | Marital Status | | + + + | Episcopal Affiliation | Unknown | + + + | Race | Unknown | + + + | Ethnic Group | Unknown | + + + Author + + + | Author | [facility] | | | and [place] | + + + | Organization | [facility] | | | [...] [place] | | | | | [address] | | + + + + + Care Team Providers + +------+ + | Care Tennis Net Maker Name | Role | Phone | + +------+ + | Davis Ivan MD | PCP | | + +------+ + Encounter Details +--------+ + + + + | Date | Type | Department | Care Team | Description | +--------+ + + + + | 12/16/ | Hospital | [facility] | Giuliano Padilla, | Left hand pain | | 2018 | Encounter | MED CTR [facility] XRAY | MD Solo [facility] | | | | | [address] | [place] | | | | | [place] | [address] | | | | | [address] | | | | | | [phone] | | | +--------+ + + + [...] | | | | | | type ([facility]) | | | | | | + [...] | 2019 | Visit | | [address] | | | | | | [facility] | | | | | | [place] [address] | | | | | | [phone] | | | | | | | [...]
--- OUTSIDE RECORDS SUMMARY | ~2019-12-28 | XMS | Encounter Summary ---
Demographics + + + | Address | [address] | | | [place] [address] | + + + | Home Phone | | + + + | Preferred Language | Unknown | + + + | Marital Status | | + + + | Congregational Affiliation | Unknown | + + + | Race | Unknown | + + + | Ethnic Group | Unknown | + + + Author + + + | Author | [facility] | | | and [place] | + + + | Organization | [facility] | | | [...] + + + + + | Jewel Chavez | ECON | [address] | | | | | [place] | | | | | [address] | | + + + + + Care Team Providers + +------+ + | Care Egg Packer Name | Role | Phone | + [...] | Specialty | Physical | Diagnoses | Deacon, | [facility] | | | Services | Therapy | Bilateral | [place] | [facility] | | | Required | | shoulder | Matthias, | [address] | | | | | pain, | MD [address] | | | | | unspecified | [address] | [place], [place] | | | | | chronicity | [place], | [address] | | | | | | [place] | Phone: | | | | | | [address] | [phone] | | | | | | Phone: | Fax: | | | | | | [phone] | [phone] | | | | | | Fax: | | | | | | | [phone] | | +--------+ + + + + + Reason for Visit + + + | Reason | Comments | + + + | New Patient | | + + + | Shoulder Pain | Bilateral Left worse than the Right | + + + Evaluate & Treat (Routine) +--------+--------+ + + + + | Status | Reason | Specialty | Diagnoses / | Referred By | Referred To | | | | | Procedures | Contact | Contact | +--------+--------+ + + + + | Closed | | Orthopedic | Diagnoses | Matti, | Deacon, | | | | Surgery | 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 | [address] | MD Matthias | | | | | is, | [address] | [address] | | | | | unspecified | [place] | [place] | | | | | shoulder | [place] [address] | [place] | | | | | | Phone: | [address] | | | | | | [phone] | Phone: | | | | | | Fax: | [phone] | | | | | | [phone] | Fax: | | | | | | | [phone] | +--------+--------+ + + + + Encounter Details +--------+---------+ + + + | Date | Type | Department | Care Team | Description | +--------+---------+ + + + | 11/01/ | Office | [facility] | Rodney Worthy | Bilateral shoulder | | 2019 | Visit | ORTHOPEDIC SURGERY | MD [address] | pain, unspecified | | | | [address] | [address] | chronicity (Primary | | | | [place] | [place] [address] | Dx); Impingement | | | | [address] | [phone] | syndrome of left | | | | [phone] | | shoulder; | | | | | | Impingement syndrome | | | | | | of right shoulder | +--------+---------+ + + + Social History [...] Weight | 72.6 kg (160 lb) | 11/01/2018 10:57 AM | | | | | PDT | | + + + + + | Height | 157.5 cm (5' 2") | 11/01/2018 10:57 AM | | | | | PDT | | + + + + + | Body Mass Index | 29.26 | 11/01/2018 10:57 AM | | | | | PDT [...] of this encounter Patient Instructions Patient Instructions Rodney Worthy MD - 11/01/2018 11:00 AM PDT Nonsurgical Treatment Options for Shoulder Impingement Rest is chavez to healing your shoulder. If an activity hurts, don t do it. Otherwise, you m ay prevent healing and increase pain. Your shoulder needs active rest. This means avoiding o verhead movements and activities that cause pain. But don't stop using your shoulder complet inge. This can cause it to stiffen or freeze. In addition to rest, impingement can be t reated a number of ways. Your healthcare provider can help you find which of these is best f or you. A physical therapist can also help you with exercises specific for your condition. Listed below are several treatment options that may be considered: Ice Ice reduces inflammation and relieves pain. Apply an ice pack for about 15 minutes, 3 times a day. A pillow placed under your arm may help make you more comfortable. To make an ice pa ck, put ice cubes in a plastic bag that seals at the top. Wrap the bag in a clean, thin towe l or cloth. Never put ice or an ice pack directly on the skin. Heat Heat may soothe aching muscles, but it won t reduce inflammation. Use a heating pad or ta ke a warm shower or bath. Do this for 15 minutes at a time. Don't use heat when pain is constant. Heat is best when used for warming up before an activ ity. You can also switch between ice and heat. Medicine To relieve pain and inflammation, try [id number] pain relievers, such as acetaminophe n or ibuprofen.Or, your healthcare provider may prescribe medicines. Ask how and when to t cm your medicine. Be sure to follow all instructions you re given. Electrical stimulation Electrical stimulation can help reduce pain and swelling. Your healthcare provider attaches small pads to your shoulder. A mild electric current then flows into your shoulder. You may feel tingling. Butyou should not feelpain. Ultrasound Ultrasound can help reduce pain. First a slick gel or medicated cream is applied to your sh oulder. Then your healthcare provider places a small device over the area. The device uses s ound waves to loosen shoulder tightness. This treatmentshould bepain-free. Injection therapy Injection therapy may be used to help diagnose your problem. It may also be used to reduce pain and inflammation.The injection typically includes 2 medicines. One is an anesthetic t o numb the shoulder. The other kat steroid, such as cortisone,to help reduce painful swe lling. It can take from a few hours to a couple of days before the injection helps. Talk wit h [facility] providerabout the possible risks and benefits of this therapy. Date Last Reviewed: 09/29/201719999343-3341 [employer]. [address] [place] [address], [place] [address]. All righ ts reserved. This information is not intended as a substitute for professional medical care. Always follow your healthcare professional's instructions. documented in this encounter Progress Notes Rodney Worthy MD - 11/01/2018 11:00 AM PDTFormatting of this note might be dif ferent from the original. [facility] HISTORY AND PHYSICAL EXAMINATION Pt. Name/Age/: Thea Carmona 73 y.o. 1945 Primary Care Physician: Davis Ivan Chief Complaint/Reason for Visit: New Patient and Shoulder Pain (Bilateral Left worse than the Right) History of Present Illness: The patient is a pleasant 73 y.o. female who presents with a chronic history of left should er pain. This is bothered her for years. She previously had surgery on her right shoulder by Dr. Baugh. This sounds like an open distal clavicle resection and rotator cuff repai r. She states that it did help for a while. Her right shoulder is bothering her at some po int at this time but her left shoulder is the major source of her problems. She was told th at she may need the same thing done on her left shoulder. This was told her by the emergenc y room at [facility] in [place]. She reports that using her shoulder makes her pain worse. Rest and relaxation make it better. Ice and heat have been helpful. She h as not had any steroid injection. She has tried anti-inflammatories without significant reli ef. Her pain is a 6-7 out of 10 at baseline and a 10 out of 10 at its worst. She is unable to do her normal daily activities due to pain. She quit using tobacco 2 year s ago. Past Medical History: Past Medical History: Diagnosis Date Acid reflux disease Arthritis COPD (chronic obstructive pulmonary disease) ([facility]) on albuterol Depression HONG (dyspnea on exertion) Full dentures upper & lower GERD (gastroesophageal reflux disease) Hyperlipidemia on simvastatin Hypertension on clonidine and lisinopril Hypothyroidism Obesity MARCE (obstructive sleep apnea) AHI 11.6 no CPAP Osteoporosis Pneumonia 2008 hospitalized 5 days Recurrent squamous cell carcinoma of lung ([facility]) 07/11/[address] and RUL nodule Rheumatoid arthritis(714.0) on prednisone and methotrexate, Dr. Lewis, [place] Spinal stenosis has tried cortisone injections Spondylolisthesis of cervical region Sputum culture positive for Scopulariopsis species Squamous cell carcinoma of lung ([facility]) 07/2013 right lower lobe Stroke ([facility]) 2006 Stroke ([facility]) 2007 Upper GI bleed 06/[address] [facility] Past Surgical History: Procedure Laterality Date BACK SURGERY 03/2014 BLADDER SUSPENSION BRONCHOSCOPY 07/11/2014 EBUS with right hilar LN biopsy, [facility] CERVICAL SPINE SURGERY 2012 CHOLECYSTECTOMY COLONOSCOPY 06/2014 ENDOSCOPY HAND ARTHROPLASTY Left 03/20/2015 Procedure: Left 1st C.M.C. Arthroplasty; Surgeon: Giuliano Padilla MD; Location: [facility] MAIN OR HAND ARTHROPLASTY Right 10/27/2017 Procedure: Right 1st CMC Arthroplasty; Surgeon: Giuliano Padilla MD; Location: [facility] MAIN O R HYSTERECTOMY LOBECTOMY 09/16/13 right lower lobe LUNG BIOPSY 07/21/13 right lower lobe SHOULDER SURGERY SHOULDER SURGERY right shoulder THUMB SURGERY TONGUE SURGERY benign per pt TUNNELED VENOUS PORT PLACEMENT N/A 07/28/2014 Procedure: Port Placement; Surgeon: Chalino Chiu MD; Location: [facility] MAIN OR Allergies: No Known Allergies Current Medications: Current Outpatient Medications Medication Sig Dispense Refill afatinib (GILOTRIF) 30 mg tablet Take 30 mg by mouth every morning (before breakfast). albuterol-ipratropium (DUONEB) 2.5-0.5 mg/3 mL SOLN Take 3 mLs by nebulization 4 times daily. CASIE: 12 months Dx: J44.9 360 mL 3 BREO ELLIPTA 100-25 MCG/INH inhaler Inhale 1 puff into the lungs Daily. 0 cholecalciferol (VITAMIN D-3) 1,000 units capsule Take 2,000 Units by mouth Daily. dilTIAZem (CARDIZEM CD) 180 mg 24 hr capsule Take 1 capsule by mouth Daily. 30 capsule 0 folic acid 1 mg tablet Take 1 mg by mouth Daily. 0 GUAIATUSSIN AC 100-10 MG/5ML syrup Take 5 mLs by mouth Daily as needed. 0 levothyroxine (SYNTHROID, LEVOTHROID) 125 mcg tablet Take 125 mcg by mouth every mornin g (before breakfast). 0 loperamide (IMODIUM) 2 mg capsule Take 2 mg by mouth as needed. 0 methotrexate 2.5 MG tablet take 6 tablets by mouth every week 0 NARCAN 4 MG/0.1ML instill 1 spray in 1 NOSTRIL if needed for opioid overdose may re... (REFER TO PRESCRIPTION NOTES). 0 pantoprazole (PROTONIX) 40 mg tablet Take 40 mg by mouth 2 times daily (before meals). 0 potassium chloride (K-DUR) 20 mEq ER tablet Take 20 mEq by mouth Daily. 0 predniSONE (DELTASONE) 5 mg tablet take 2 tablets by mouth every morning 0 Respiratory Therapy Supplies (NEBULIZER COMPRESSOR) KIT Use as directed with nebulizer medication. Dx: J43.1 CASIE: 99 months 1 each 0 roflumilast (DALIRESP) 500 mcg tablet Take 1 tablet by mouth. simvastatin (ZOCOR) 40 mg tablet Take 40 mg by mouth nightly. tiotropium (SPIRIVA) 18 mcg inhalation capsule Inhale 18 mcg into the lungs Daily. venlafaxine (EFFEXOR XR) 75 mg 24 hr tablet take 1 tablet by mouth every morning AT THE SAME TIME EACH DAY WITH FOOD 0 warfarin (COUMADIN) 5 mg tablet Take 5 mg by mouth Daily. 5MG 3 times weekly and 4 1/2 tablet other days. Current Facility-Administered Medications Medication Dose Route Frequency Provider Last Rate Last Dose triamcinolone acetonide (KENALOG-40) 40 mg/mL injection 40 mg 40 mg Intra-articular On ce Rodney Worthy MD triamcinolone acetonide (KENALOG-40) 40 mg/mL injection 40 mg 40 mg Intra-articular On ce Rodney Worthy MD Family History: Family History Problem Relation Age of Onset COPD Sister Tobacco Use Sister quit 1 year ago Cancer Father stomach Lung cancer Brother Tobacco Use Brother Alcohol abuse Brother Social History: Social History Socioeconomic History Marital status: Spouse [...] non-medical: Not on file Occupational History 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 Tobacco Use Smoking status: Former Smoker Packs/day: 1.00 Years: 50.00 Pack years: 50.00 Types: Cigarettes Start date: 03/08/1952 Last attempt to quit: 07/24/2016 Years since quittin.2 Smokeless tobacco: Never Used Substance and Sexual Activity Alcohol use: No Alcohol/week: 0.0 oz Comment: pt states she was an alcoholic for 40 years but quit in 05/2012 Drug use: No Comment: marijuana in the remote past Sexual activity: Not on file Other Topics Concern Not on file Social History Narrative Lives: in [place] With: alone Grew up: in [place] Has previously lived in: [place] Exposure to toxic chemicals: no Exposure to asbestos: no Exposure to tuberculosis: no Has had a PPD or Quantiferon before: no Has pets at home: cat and a dog Has ever owned birds: yes, 5 years ago Other animal exposures: no Hobbies: used to jaja, crossword puzzles, walking her dog Review of Systems All of these are negative unless otherwise marked Eyes: [] Double vision [x] Glasses/contacts [x] Failing vision Respiratory: [x] Asthma/Wheezing [x] Pneumonia [x] Night sweats [x] Shortness of breath [x] Chronic cough [x] Coughing up blood [] Exposure to tuberculosis Cardiovascular: [x] Heart Problems [x] Hypertension [] Heart murmur [x] Palpitations [] Rheumatic fever [x] Phlebitis [] Chest pain [x] Ankle swelling [x] Leg cramps [x] Ra cing heart [x] Skipping beats [x] Blood clots Urinary Tract: [] Painful urination [x] Kidney Stones [x] Any urine leakage [] Weak urine stream [x] Night urination [] Urine infections [] Bedwetting [] Blood in urine Ear/Nose/Throat: [x] Frequent Colds [x] Sinus Disease [] Nose obstructio n [] Sneezing Spells [] Change in taste [x] Artificial teeth [x] Ears ringing [] Ear pain [] Hearing los s [] Teeth problems [] Hoarseness [] Neck swelling [] Sore throat [x] Congestion [x] Nosebleeds [] Nasal allergies Gastrointestinal: [x] Abdominal pain [x] Heartburn [x] Blood from rectum [] Colitis [] Gallbladder problems [x] Troub le swallowing [x] Bloated stomach [] Change in stools [] Vomiting blood [] Nausea [x] Hemorrhoids [] Jaundice [] Hepatitis [x] Diarrhea [] Constipation [x] Diverticulitis Musculoskeletal: [x] Physical handicaps [x] Back or shoulder pain [x]Rheumatoid disease [x] Osteoarthritis [x] Joint pain [x] Joint swelling []Gout [] Leg cramps at night Skin: [] Skin rashes [] Itching/Burning [x] Skin bruises easi ly [] Artificial tanning [] Skin cancer [] Hair loss [] Changes in moles Psychiatric: [x] Depression [] Suicidal thoughts [x] Sleep pattern changes [] Appetite changes [] Recent counseling [] Nervousness/anxiety [] Physical violence [] Marital problems Neurological: [x] Headaches [] Seizures [] Stroke/TIA [] Faintness [] Tremors [] Numbness [] Dizziness [] Changes in handwriting [] Memory loss [] Shooting pains Endocrine: [x] Thyroid [] Diabetes Systemic: []Weight loss/gain (over 10 lbs) [x]Fever/chills [x]Fatigue [x] Sleeping Difficulties [] Speech change [] Voice change Admission Weight: Weight: 72.6 kg (160 lb) BMI: Body mass index is 29.26 kg/m. Physical Examination: Ht 1.575 m (5' 2") | Wt 72.6 kg (160 lb) | BMI 29.26 kg/m General: Alert, oriented, no acute distress HEENT: Normocephalic, atraumatic Cardiovascular: Regular rate and rhythm Respiratory: Breathing normally at a regular rate Ortho Exam Left Shoulder Exam Right Left Forward Flexion 120 120 Abduction 120 120 External Rotation 35 35 Internal rotation T8 T8 Tender to Palpation: subacromial joint External Rotation Strength 4+/5 Internal Rotation Strength 5/5 Hawkin's Positive Neer's Positive Gary's Positive Speed's Negative Yergason's Negative Skin: intact Radial pulse 2+. Sensation intact to light touch in the first dorsal webspace, and the pads of the small and index fingers. Able to flex and extend the thumb at the interphalangeal bryan int, make an "ok" sign, adduct and abduct the fingers, and oppose the thumb to the small fin casandra. Diagnostic Studies: Imaging Shoulder imaging reviewed. The patient has no significant glenohumeral osteoarthrosis. Th e humeral head is centered on the glenoid. There are no fractures or dislocations. Labs- Lab Results Component Value Date NA 140 09/28/2018 K 3.9 09/28/2018 CL 107 09/28/2018 CO2 25 09/28/2018 ANIONGAP 8 09/28/2018 GLU 105 09/28/2018 BUN 14 09/28/2018 CREA 0.92 09/28/2018 GFRNONAA 60 09/28/2018 CALCIUM 9.7 09/28/2018 ALBUMIN 4.1 09/28/2018 BILITOT 0.5 09/28/2018 TOTALPROTEIN 6.3 09/28/2018 AST 23 09/28/2018 ALT 21 09/28/2018 ALKPHOS 67 09/28/2018 WBC 10.3 09/28/2018 HGB 11.3 (L) 09/28/2018 HCT 36.5 09/28/2018 MCV 94.1 09/28/2018 PLT 305 09/28/2018 INR 1.0 09/28/2018 Assessment and Plan: 1. Bilateral shoulder pain, unspecified chronicity XR Shoulder Right 2 + Vw Physical Therapy - Ambulatory Referral triamcinolone acetonide (KENALOG-40) 40 mg/mL injection 40 mg triamcinolone acetonide (KENALOG-40) 40 mg/mL injection 40 mg 2. Impingement syndrome of left shoulder XR Shoulder Left 1 Vw XR Shoulder Right 2 + Vw triamcinolone acetonide (KENALOG-40) 40 mg/mL injection 40 mg 3. Impingement syndrome of right shoulder XR Shoulder Left 1 Vw XR Shoulder Right 2 + Vw triamcinolone acetonide (KENALOG-40) 40 mg/mL injection 40 mg The patient is a pleasant 73 y.o. female who presents with bilateral shoulder pain with the left being worse than the right and signs and symptoms consistent with shoulder impingement . Treatment options were discussed with the patient including non-operative treatment modali ties. Considering the nature of the patient's condition, decision was made to proceed with p hysical therapy and bilateral shoulder injection. Hopefully this will help significantly al leviate her symptoms. The goal of this will be to help control pain with the injections and then to increase her shoulder strength and conditioning. Risks, benefits and alternatives to injection were discussed with the patient. All of the p atient's questions were answered regarding the procedure. Consent was obtained. The patient agreed to undergo an injection of the Bilateral subacromial injections. The area was prepare d sterilely using Betadine. A cold spray was used to numb the skin. 5 mLs of 1% lidocaine an d 40 mg of kenalog were injected in the standard fashion first in the left shoulder and then in the right. This was well tolerated by the patient. Follow-up: Return in about 2 months (around 01/01/2019). with no x-ray Portions of this report were transcribed using voice recognition software. Every effort wa s made to ensure accuracy; however, inadvertent computerized kiosk sales representative errors may be pre sent. I appreciate the opportunity to help with the management of this patient. Rodney Worthy MD documented in this encounter Plan of Treatment +--------+---------+ + + + | Date | Type | Specialty | Care Team | Description | +--------+---------+ + + + | 03/06/ | Office | Rheumatology | Santosh Sumner, | | | 2019 | Visit | | [address] | | | | | | [facility] | | | | | | [place] [address] | | | | | | [phone] | | | | | | | | +--------+---------+ + + + + + +--------+ + + | Name | Type | Priori | Associated Diagnoses | Order Schedule | | | | ty | | | + + +--------+ + + | Physical Therapy - | Outpatient | Routin | Bilateral shoulder | Ordered: 11/01/2018 | | Ambulatory Referral | Referral | e | pain, unspecified | | | | | | chronicity | | + + +--------+ + + documented as of this encounter Results XR Shoulder Right 2 + Vw (11/01/2018 11:00 AM PDT) + + | Specimen | + + | | + + + + + | Narrative | Performed At | + + + | CLINICAL INFORMATION: RIGHT SHOUDLER PAIN. COMPARISON: CT dated | [facility] | | 09/03/2018 and 09/02/2018. FINDINGS: 2 views of the right shoulder. | | | Mild glenohumeral joint space narrowing. Mild AC joint | | | arthrosis. Subchondral surfaces are smooth. Soft tissue | | | calcification noted adjacent to the humeral head. Right chest | | | port. Stable appearance of the right perihilar region. | | | IMPRESSION - Mild glenohumeral and acromioclavicular degenerative | | | changes. Superior rotator cuff calcific tendinosis. Dictated | | | and Signed by: Alex Huddleston MD Electronically signed: 11/01/2018 | | | 12:35 PM | | + + + + + | Procedure Note | + + | Raoul Lockwood Results In - 11/01/2018 12:38 PM PDT CLINICAL INFORMATION: RIGHT SHOUDLER | | PAIN.COMPARISON: CT dated 09/03/2018 and 09/02/2018.FINDINGS: 2 views of the right | | shoulder.Mild glenohumeral joint space narrowing. Mild AC joint arthrosis. | | Subchondralsurfaces are smooth.Soft tissue calcification noted adjacent to the humeral | | head.Right chest port. Stable appearance of the right perihilar region.IMPRESSION -Mild | | glenohumeral and acromioclavicular degenerative changes.Superior rotator cuff calcific | | tendinosis.Dictated and Signed by: Alex Huddleston MD Electronically signed: 11/01/2018 | | 12:35 PM | |surfaces are smooth. | | | |Soft tissue calcification noted adjacent to the humeral head. | | | |Right chest port. Stable appearance of the right perihilar region. | | | |IMPRESSION - | |Mild glenohumeral and acromioclavicular degenerative changes. | | | |Superior rotator cuff calcific tendinosis. | | | |Dictated and Signed by: Alex Huddleston MD | | Electronically signed: 11/01/2018 12:35 PM | + + + +---------+ + + | Performing | Address | City/State/Zipcode | Phone Number | | Organization | | | | + +---------+ + + | [facility] | | | | + +---------+ + + XR Shoulder Left 1 Vw (11/01/2018 11:00 AM PDT) + + | Specimen | + + | | + + + + + | Narrative | Performed At | + + + | CLINICAL INFORMATION: LEFT SHOULDER PAIN. COMPARISON: CT dated | [facility] | | 09/03/2018 and 09/02/2018. FINDINGS: Single axillary view of the | | | left shoulder. Normal alignment of the glenohumeral and | | | acromioclavicular joints. Probable mild AC joint arthrosis. The | | | glenohumeral joint space appears to be preserved. Subchondral | | | surfaces are smooth. Unremarkable appearance of the soft tissues. | | | IMPRESSION - Probable mild AC joint arthrosis. Dictated and | | | Signed by: Alex Huddleston MD Electronically signed: 11/01/2018 | | | 12:32 PM | | + + + + + | Procedure Note | + + | Fabián, Rad Results In - 11/01/2018 12:35 PM PDT CLINICAL INFORMATION: LEFT SHOULDER | | PAIN.COMPARISON: CT dated 09/03/2018 and 09/02/2018.FINDINGS: Single axillary view of the | | left shoulder.Normal alignment of the glenohumeral and acromioclavicular joints. | | Probablemild AC joint arthrosis. The glenohumeral joint space appears to be preserved. | | Subchondral surfaces are smooth. Unremarkable appearance of the soft tissues.IMPRESSION | | - Probable mild AC joint arthrosis.Dictated and Signed by: Alex Huddleston MD | | Electronically signed: 11/01/2018 12:32 PM | |Normal alignment of the glenohumeral and acromioclavicular joints. Probable | |mild AC joint arthrosis. The glenohumeral joint space appears to be preserved. | |Subchondral surfaces are smooth. Unremarkable appearance of the soft tissues. | | | |IMPRESSION - Probable mild AC joint arthrosis. | | | |Dictated and Signed by: Alex Huddleston MD | | Electronically signed: 11/01/2018 12:32 PM | + + + +---------+ + + | Performing | Address | City/State/Zipcode | Phone Number | | Organization | | | | + +---------+ + + | [facility] | | | | + +---------+ + + documented in this encounter Visit Diagnoses + + | Diagnosis | + + | Bilateral shoulder pain, unspecified chronicity - Primary | + + | Impingement syndrome of left shoulder Other affections of shoulder region, not | | elsewhere classified | + + | Impingement syndrome of right shoulder Other affections of shoulder region, not | | elsewhere classified | + + documented in this encounter Administered Medications + +--------+ +-------+------+ + | Medication Order | MAR | Action | Dose | Rate | Site | | | Action | Date | | | | + +--------+ +-------+------+ + | triamcinolone acetonide | Given | 11/02/19 | 40 mg | | Shoulder | | (KENALOG-40) 40 mg/mL injection | | 19 1:50 | | | -Right | | 40 mg 40 mg, Intra-articular, | | PM PDT | | | | | ONCE, Thu11/01/18 at 1645, For 1 | | | | | | | dose, Boy well. Not for IV | | | | | | | use., | | | | | | + +--------+ +-------+------+ + +---+---+ | | | +---+---+ + +-------+ +-------+---+ + | triamcinolone acetonide | Given | 11/02/19 | 40 mg | | Shoulder | | (KENALOG-40) 40 mg/mL injection | | 19 1:50 | | | -Left | | 40 mg 40 mg, Intra-articular, | | PM PDT | | | | | ONCE, Thu11/01/18 at 1645, For 1 | | | | | | | dose, Boy well. Not for IV | | | | | | | use., | | | | | | + +-------+ +-------+---+ + +---+---+ | | | +---+---+ documented in this encounter
--- OUTSIDE RECORDS SUMMARY | ~2019-12-28 | XMS | Encounter Summary ---
Demographics + + + | Address | [address] | | | [place] [address] | + + + | Home Phone | | + + + | Preferred Language | Unknown | + + + | Marital Status | | + + + | Mormonism Affiliation | Unknown | + + + | Race | Unknown | + + + | Ethnic Group | Unknown | + + + Author + + + | Author | [facility] | | | and [place] | + + + | Organization | [facility] | [...] [place] | | | | | [address] | | + + + + + Care Team Providers + +------+ + | Care Vice President & General Manager [employer] Name | Role | Phone | + [...] | Radiology | Diagnoses | | [facility] | | | | | Squamous | Offenstein, | Scan [address] | | | | | cell | Ayana B, | [place] | | | | | carcinoma | MD [address] | [place], [place] | | | | | lung (HCC) | [address] | [address] | | | | | Procedures | [place], | Phone: | | | | | PET CT Skull | [place] [address] | [phone] | | | | | Base To Mid | | Fax: | | | | | Thigh | | [phone] | +--------+--------+ + + + + Reason for Visit Evaluate & Treat (Routine) +--------+--------+ + + + + | Status | Reason | Specialty | Diagnoses / | Referred By | Referred To | | | | | Procedures | Contact | Contact | +--------+--------+ + + + + | Closed | | Radiology | Diagnoses | | [facility] | | | | | Squamous | Offenstein, | Scan [address] | | | | | cell | Ayana Looney, | [place] | | | | | carcinoma | MD [address] | [place], [place] | | | | | lung (HCC) | [address] | [address] | | | | | Procedures | [place], | Phone: | | | | | PET CT Skull | [place] [address] | [phone] | | | | | Base To Mid | | Fax: | | | | | Thigh | | [phone] | +--------+--------+ + + + + Encounter Details +--------+ + + + + | Date | Type | Department | Care Team | Description | +--------+ + + + + | 08/11/ | Hospital | [facility] | Offenstein, | Squamous cell | | 2013 | Encounter | MED CTR PET SCAN | Ayana Looney MD | carcinoma lung (HCC) | | | | [address] [place] | | | | | | [place] [address] | | | | | | [phone] | | | +--------+ + + + [...] encounter Progress Notes Ayana Taylor MD - 08/12/2013 12:28 PM PDT Quick Note: Phone note with results placed. documented in this encounter Miscellaneous Notes Inpatient Medication Chart - ONEDGARDO ARANA [facility] - 08/16/2013 12:00 AM PDTElectronically fady d by Capri Hodges at 08/19/2013 1:55 PM PDTdocumented in this encounter Plan of Treatment +--------+---------+ + + + | Date | Type | Specialty | Care Team | Description | +--------+---------+ + + + | 03/06/ | Office | Rheumatology | Santosh Sumner, | | | 2020 | Visit | | [facility] [address] | | | | | | [facility] | | | | | | [place] [address] | | | | | | [phone] | | | | | | | | +--------+---------+ + + + documented as of this encounter Procedures + +--------+ + + + | Procedure Name | Priori | Date/Time | Associated Diagnosis | Comments | | | ty | | | | + +--------+ + + + | PET CT SKULL BASE TO | Routin | 08/11/2013 | Squamous cell | Results for this | | MID THIGH | e | 2:55 PM | carcinoma lung (HCC) | procedure are in the | | | | PDT | | results section. | + +--------+ + + + documented in this encounter Results PET CT Skull Base To Mid Thigh (08/11/2013 2:55 PM PDT) + + | Specimen | + + | | + + + + -----+ | Narrative | Performed A t | + + -----+ | PET CT SKULL | SHONNA O[facility] | | BASE TO MID THIGH 08/11/2013 2:40 PM HISTORY: Please evaluate patient | LAB | | with new diagnosis of lung cancer. 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 COMPARISON: CT scans of the chest dated 06/09/2013, | | | 01/28/2013, PET/CT scan dated1. PROTOCOL: The patient was | | | initially injected with 10.3 mCi FDG F-18. After aone-hour delay, | | | whole body PET images were acquired. Low dose nondiagnostic CTimages | | | were obtained for attenuation correction and fusion. The | | | patient'sfasting blood glucose level at the time of injection was 86 | | | mg/dL. FINDINGS:There is physiologic uptake in the brain. Mildly | | | increased uptake is observed inthe left adenoid tonsil region with | | | maximum SUV of 5.16 that likely representstonsillar hyperplasia. There | | | is a small osteoma in the left maxillary sinus.Fusion hardware is | | | seen in the cervical spine. Again visualized is the mixed solid and | | | cystic lesion in the superior segment ofthe right lower lung lobe that | | | has increased in size compared to the prior CTscan from 06/09/2013 and | | | currently measures 3.1 x 2.1 cm (CT image 56, PET [id number]). Maximum | | | SUV is 6.26, consistent with the patient's history of squamouscell | | | carcinoma. In the right hilar region, a 0.9 cm lymph node is present | | | (CTimage 57, PET image 143) with maximum SUV of 4.46, most consistent | | | withmetastatic disease. There is physiologic activity in the heart and | | | bloodvessels. Low grade uptake is present in the breast tissues. In | | | the abdomen, there is physiologic uptake in the liver, kidneys, and | | | bowel.Cholecystectomy clips are visualized. There is severe | | | atherosclerosis of theaorta. In the pelvis, physiologic uptake is | | | observed in the bladder. There is severeatherosclerosis of the iliac | | | arteries.. IMPRESSION -INCREASED SIZE OF 3.1 X 2.1 CM MIXED SOLID AND | | | CYSTIC LESION IN THE SUPERIORSEGMENT OF THE RIGHT LOWER LOBE WITH | | | INCREASED UPTAKE CONSISTENT WITH THEPATIENT'S HISTORY OF SQUAMOUS CELL | | | CARCINOMA. ADDITIONAL INCREASED UPTAKE ISSEEN IN A 0.9 CM RIGHT HILAR | | | LYMPH NODE THAT IS SUSPICIOUS FOR METASTATICDISEASE. Dictated and | | | Signed by: Matheus Kapadia MD Electronically signed: 08/12/2013 9:48 AM | | |In the pelvis, physiologic uptake is observed in the bladder. There is severe | | |atherosclerosis of the iliac arteries.. | | | | | |IMPRESSION - | | |INCREASED SIZE OF 3.1 X 2.1 CM MIXED SOLID AND CYSTIC LESION IN THE SUPERIOR | | |SEGMENT OF THE RIGHT LOWER LOBE WITH INCREASED UPTAKE CONSISTENT WITH THE | | |PATIENT'S HISTORY OF SQUAMOUS CELL CARCINOMA. ADDITIONAL INCREASED UPTAKE IS | | |SEEN IN A 0.9 CM RIGHT HILAR LYMPH NODE THAT IS SUSPICIOUS FOR METASTATIC | | |DISEASE. | | | | | |Dictated and Signed by: Matheus Kapadia MD | | | Electronically signed: 08/12/2013 9:48 AM | | + + -----+ + + | Procedure Note | + + | Fabián, Rad Results In - 08/12/2013 9:[address] SKULL BASE TO MID THIGH | | 08/11/2013 2:40 PM HISTORY: Please evaluate patient with new diagnosis of lung cancer. 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 After aone-hour delay, whole body PET images were | | acquired. Low dose nondiagnostic CTimages were obtained for attenuation correction and | | fusion. The patient'sfasting blood glucose level at the time of injection was 86 | | mg/dL.FINDINGS:There is physiologic uptake in the brain. Mildly increased uptake is | | observed inthe left adenoid tonsil region with maximum SUV of 5.16 that likely | | representstonsillar hyperplasia. There is a small osteoma in the left maxillary | | sinus.Fusion hardware is seen in the cervical spine.Again visualized is the mixed solid | | and cystic lesion in the superior segment ofthe right lower lung lobe that has increased | | in size compared to the prior CTscan from 06/09/2013 and currently measures 3.1 x 2.1 cm | | (CT image 56, PET [id number]). Maximum SUV is 6.26, consistent with the patient's history | | of squamouscell carcinoma. In the right hilar region, a 0.9 cm lymph node is present | | (CTimage 57, PET image 143) with maximum SUV of 4.46, most consistent withmetastatic | | disease. There is physiologic activity in the heart and bloodvessels. Low grade uptake | | is present in the breast tissues.In the abdomen, there is physiologic uptake in the | | liver, kidneys, and bowel.Cholecystectomy clips are visualized. There is severe | | atherosclerosis of theaorta.In the pelvis, physiologic uptake is observed in the | | bladder. There is severeatherosclerosis of the iliac arteries..IMPRESSION -INCREASED | | SIZE OF 3.1 X 2.1 CM MIXED SOLID AND CYSTIC LESION IN THE SUPERIORSEGMENT OF THE RIGHT | | LOWER LOBE WITH INCREASED UPTAKE CONSISTENT WITH THEPATIENT'S HISTORY OF SQUAMOUS CELL | | CARCINOMA. ADDITIONAL INCREASED UPTAKE ISSEEN IN A 0.9 CM RIGHT HILAR LYMPH NODE THAT IS | | SUSPICIOUS FOR METASTATICDISEASE. Dictated and Signed by: Matheus Kapadia MD | | Electronically signed: 08/12/2013 9:48 AM | |vessels. Low grade uptake is present in the breast tissues. | | | |In the abdomen, there is physiologic uptake in the liver, kidneys, and bowel. | |Cholecystectomy clips are visualized. There is severe atherosclerosis of the | |aorta. | | | |In the pelvis, physiologic uptake is observed in the bladder. There is severe | |atherosclerosis of the iliac arteries.. | | | |IMPRESSION - | |INCREASED SIZE OF 3.1 X 2.1 CM MIXED SOLID AND CYSTIC LESION IN THE SUPERIOR | |SEGMENT OF THE RIGHT LOWER LOBE WITH INCREASED UPTAKE CONSISTENT WITH THE | |PATIENT'S HISTORY OF SQUAMOUS CELL CARCINOMA. ADDITIONAL INCREASED UPTAKE IS | |SEEN IN A 0.9 CM RIGHT HILAR LYMPH NODE THAT IS SUSPICIOUS FOR METASTATIC | |DISEASE. | | | |Dictated and Signed by: Matheus Kapadia MD | | Electronically signed: 08/12/2013 9:48 AM | + + + +---------+ + + | Performing | Address | City/State/Zipcode | Phone Number | | Organization | | | | + +---------+ + + | MIS[facility]LLANEOUS LAB | | | [phone] | + +---------+ + + | MISCELANIOUS LAB | | | [phone] | + +---------+ + + documented in this encounter Visit Diagnoses + + | Diagnosis | + + | Squamous cell carcinoma lung (HCC) Malignant neoplasm of bronchus and lung, | | unspecified site | + + documented in this encounter Administered Medications + +--------+ + +------+------+ | Medication Order | MAR | Action | Dose | Rate | Site | | | Action | Date | | | | + +--------+ + +------+------+ | fluorine-18 FDG injection 10.3 | Given | 03//20 | 10.3 | | | | millicurie 10.3 -millicurie, | | 14 2:44 | -millicu | | | | Intravenous, ONCE, [facility] 08/11/13 at | | PM PDT | lenka | | | | 1715, For 1 dose | | | | | | + +--------+ + +------+------+ +---+---+ | | | +---+---+ documented in this encounter"
--- OUTSIDE RECORDS SUMMARY | ~2019-12-28 | XMS | Encounter Summary ---
Demographics + + + | Address | [address] | | | [place] [address] | + + + | Home Phone | | + + + | Preferred Language | Unknown | + + + | Marital Status | | + + + | Hinduism Affiliation | Unknown | + + + | Race | Unknown | + + + | Ethnic Group | Unknown | + + + Author + + + | Author | [facility] | | | and [place] | + + + | Organization | [facility] | | [...] [place] | | | | | [address] | | + + + + + Care Team Providers + +------+ + | Care Mess Attendant Crew Name | Role | Phone | + [...] [place] | | | | | [place], | [address] | | | | | [place] [address] | | | | | | [phone] | | | +--------+ + + + [...] | 2019 | Visit | | [address] | | | | | | [place] | | | | | | [place] [address] | | | | | | [phone] | | | | | | | | +--------+---------+ + + + documented as of this encounter Visit Diagnoses Not on filedocumented in this encounter"
--- OUTSIDE RECORDS SUMMARY | ~2019-12-28 | XMS | Encounter Summary ---
Demographics + + + | Address | [address] | | | [place] [address] | + + + | Home Phone [...] [place] | | | | | [address] | | + + + + + Care Team Providers + +------+ + | Care Build Technician Name | Role | Phone | [...] | 03/30/ | Office | [facility] [place] | Offenstein, | Pulmonary nodule | | 2012 | Visit | PULMONARY [address] | Ayana Looney MD | (Primary Dx); COPD | | | | [place], | | (chronic obstructive | | | | [place] [address] | | pulmonary disease) | | | | [phone] | | (HCC); Rheumatoid | | | | | | arthritis ([facility]) | +--------+---------+ + + + Social History [...] nt from the original. Pulmonary Consult Note Ayana Taylor MD [place] [facility] [address] [place], [address] Referring Provider: Davis Ivan * HPI Thea [...] She believes she had one yearly at [facility], even fairly recently. They do have symptoms [...] own cooking and cleaning. 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 She does do a little [...] Rheumatoid arthritis on prednisone and methotrexate, Dr. Lewis, [place] Stroke 2007 Hyperlipidemia on simvastatin Hypertension on clonidine and lisinopril Hypothyroidism GERD (gastroesophageal reflux disease) Past Surgical History Past Surgical History Procedure Date Hysterectomy Cholecystectomy Cervical spine surgery 2012 Bladder suspension Shoulder surgery Thumb surgery Family History: Family History Problem Relation Age of Onset COPD Sister Tobacco Use Sister quit 1 year ago Cancer Father stomach Lung cancer Brother Tobacco Use Brother Alcohol abuse Brother Social History: History Social History Marital Status: Spouse Name: N/A Number of Children: N/A Years of Education: N/A 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 cloNIDine (CATAPRES) 0.1 mg tablet Active Take [...] Ivan MD documented in t his encounter Miscellaneous Notes Miscellaneous - ONBASE SCAN [facility] - 04/08/2013 12:00 AM PST iscellaneous - ONBASE SCAN [facility] - 03/30/2013 12:00 AM PDTEle ctronically signed by Capri Hodges at 04/08/2013 1:11 PM PSTdocumented in this encounter Plan of Treatment +--------+---------+ + + + | Date | Type | Specialty | Care Team | Description | +--------+---------+ + + + | 03/06/ | Office | Rheumatology | Santosh Sumner, | | | 2019 | Visit | | [address] | | | | | | [facility] | | | | | | [place] [address] | | | | | | [phone] | | | | | | | [...] | | [facility] | | | - LABORATORY | + + + + + + + + | Performing | Address | City/State/Zipcode | Phone Number | | Organization | | | | + + + + + | [facility] | [address] | [place], [place] | [phone] | | [facility] | | [address] | | | - LABORATORY | | | | + + + + + | [facility] | [address] | [place], [place] | | | [facility] | | [id number] | | | - LABORATORY | | [...] by: | | | | | | [facility], | | | | | | [address] | | | | | | [place] | | | | | | [address] | | | | + + + + + + + + | Specimen | + + | Blood specimen | | (specimen) | + + + + + + + | Performing | Address | City/State/Zipcode | Phone Number | | Organization | | | | + + + + + | [facility] | [address] | [place] | [phone] | | [facility] | | [address] | | | - LABORATORY | | | | + + + + + | [facility] | [address] | [place] | | | [facility] | | [id number] | | | - LABORATORY | | [...] ID | Reference range: NONE | | ST. [...] | | | | | | Performed: [place], [address] | | | | | | [facility] | | | | | | [facility], [id number] CLIA: | | | | | | [id number] | | | | + + + + + + + + | Specimen | + + | Blood specimen | | (specimen) | + + + + + + + | Performing | Address | City/State/Zipcode | Phone Number | | Organization | | | | + + + + + | [facility] | [address] | [place] | [phone] | | [facility] | | [address] | | | - LABORATORY | | | | + + + + + | [facility] | [address] | [place], [place] | | | [facility] | | [id number] | | | - LABORATORY | | | | + + + + + Histoplasma Ab, Panel (03/30/2013 1:20 PM PDT) + + [...] [address] | | | | | | [facility] | | | | | | [facility], [id number] CLIA: | | | | | | [id number] | | | | + + + + + + + + | Specimen | + + | Blood specimen | | (specimen) | + + + + + + + | Performing | Address | City/State/Zipcode | Phone Number | | Organization | | | | + + + + + | [facility] | [address] | [place], [place] | [phone] | | [facility] | | [address] | | | - LABORATORY | | | | + + + + + | [facility] | [address] | [place], [place] | | | [facility] | | [address] [place] [address] | | | - LABORATORY | | [...] | | | | | | Diagnostics, [id number] | | | | | [address] | | | | | | [address],[place] [address] | | | | | | CLIA: [id number] | | | | + + + + + + + + | Specimen | + + | Blood specimen | | (specimen) | + + + + + + + | Performing | Address | City/State/Zipcode | Phone Number | | Organization | | | | + + + + + | [facility] | [address] | [place] | [phone] | | [facility] | | [address] | | | - LABORATORY | | | | + + + + + | [facility] | [address] | [place], [place] | | | [facility] | | [address], [facility] | | | - LABORATORY | | [...]
--- OUTSIDE RECORDS SUMMARY | ~2019-12-28 | XMS | Encounter Summary ---
Demographics + + + | Address | [address] | | | [place] [address] | + + + | Home Phone | | + + + | Preferred Language | Unknown | + + + | Marital Status | | + + + | Catholic Affiliation | Unknown | + + + | Race | Unknown | + + + | Ethnic Group | Unknown | + + + Author + + + | Author | [facility] | | | and [place] | + + + | Organization | [facility] | | [...] [place] | | | | | [address] | | + + + + + Care Team Providers + +------+ + | Care Field Handyman Name | Role | Phone | + [...] + + | 08/22/ | Hospital | [facility] | Adelita Lu MD | Recurrent squamous | | 2015 | Encounter | [facility] | Need updated | cell carcinoma of | | | | [facility] [address] | address | lung, unspecified | | | | [address] | | laterality (HCC) | | | | [place] [address] | | (Primary Dx) | | | | [phone] | | | +--------+ + + + [...] + + + | Blood Pressure | 120/64 | 08/22/2014 10:26 AM | | | | | PDT | | + + + + + | Pulse | 78 | 08/22/2014 10:26 AM | | | | | PDT | | + + + + + | Temperature | 36.2 C (97.2 F) | 08/22/2014 10:26 AM | | | | | PDT | | + + + + + | Respiratory Rate | 18 | 08/22/2014 10:26 AM | | | | | PDT | | + + + + + | Oxygen Saturation | 94% | 08/22/2014 10:26 AM | | | | | PDT | | + + + + + | Inhaled Oxygen | - | - | | | Concentration | | | | + + + + + | Weight | 68.5 kg (151 lb 0.2 | 08/22/2014 10:20 AM | | | | oz) | PDT | | + + + + + | Height | - | - | | + + + + + | Body Mass Index | 27.61 | 08/15/2014 10:08 AM | | | | | PDT [...] encounter Progress Notes Adelita Lu MD - 08/22/2014 10:19 AM PDT Hem-Onc Progress Note [facility] Patient name:Thea Carmona : 1945 Age: 69 y.o. CSN: [id number] Date of Service: 08/22/2014 Identifying Statement: Thea Carmona is a 69 y.o. female from [facility] with clinical stage II, non-small cell [...] lewis 2.CT-guided biopsy by interventional radiology at [facility] of the right lung massshows squamous cell carcinoma, moderately differentiated positive for p 40 and negative for TTF-1. 3.PET/CT scan 08/11/2013 showed increased size of the right lung lesion with a maximum SUV o f 6.26. In the right hilar region, a 0.9 cm lymph node was present with maximum SUV of 4.46 consistent with metastatic disease 4. seen by Dr. Beltran , thoracic surgeon at [facility] for consideration of broncho scopy, right thoracoscopy, thoracic lymphadenectomy to rule out N2 disease, probable lower l obectomy, possible thoracotomy . Date: September 16, 2013, 5. Right minimally invasive lower lobe lobectomy and minimally invasive thoracoscopic lymp hadenectomy : Dr. José Miguel beltran : 09/16/13:3.2x 3.0x1.7 cm tumor, squamous carcinoma, [...] cell carcinoma Chief Complaint/HPI: Here for cycle #3 carboplatin and Taxol given concurrently with radiat ion for recurrence of lung cancer in the right hilar node REVIEW OF SYSTEMS Constitutional: Pt reports constant fatigue. Denies high fevers, shaking chills, anorexia, weight loss. Pt reports lack of Appetite. Pt reports nausea and vomiting yesterday. Pt repo rts night sweats. Ear, Nose, Mouth, Throat: Denies odynophagia, dysphagia, or tinnitus. Cardiovascular: Denies chest pain, palpitations or orthopnea. Pt reports constant SOB and d yspnea. Respiratory: Denies hemoptysis. Pt reports a cough with white sputum production. Gastrointestinal: Denies abdominal pain, constipation, diarrhea, melena. Pt reports bright red blood per rectum, starts last and has been going on since then. Pt reports 3-4 BM's daily. Genitourinary: Denies hematuria or dysuria. Musculoskeletal: Pt reports rheumatoid arthritis. Neurologic: Denies headache, visual changes, or numbness/tingling of the extremities. Pt re ports a headache "every once and a while, but nothing drastic." Endocrine: Denies peripheral edema or heat/cold intolerance. Hematologic: Pt reports spontaneous bruising and bleeding per rectum with BMs. Integumentary: Denies rash, wounds or other skin concerns. Pain: Denies pain. Note:Pt presents today for f/u with labs and chemo. My chart:declined Past Medical History: Past Medical History Diagnosis Date COPD (chronic obstructive pulmonary disease) ([facility]) on albuterol Spondylolisthesis of cervical region Spinal stenosis has tried cortisone injections Osteoporosis Depression Pneumonia 2009 hospitalized 5 days Rheumatoid arthritis(714.0) ([facility]) on prednisone and methotrexate, Dr. Lewis Covelo Hyperlipidemia on simvastatin Hypertension on clonidine and lisinopril Hypothyroidism GERD (gastroesophageal reflux disease) Stroke ([facility]) 2006 Stroke ([facility]) 2007 Squamous cell carcinoma of lung ([facility]) 07/2013 right lower lobe Sputum culture positive [...] mg by mouth Daily. RESPIRATORY THERAPY SUPPLIES [employer] ResMed S9 auto CPAP 5-9 cm H2O. Heater and Humidifier . All necessary supplies. AHI 11.6. Diagnosis Code(s)327.23, also has co morbid hypertension , history of stroke. Length of Need 99 months. Please send order to [facility]. RESPIRATORY THERAPY SUPPLIES [employer] Respironics autotitrating CPAP at 5-9 cm H2O for life time. Mask, headgear, chin strap, hoses, humidifier chamber and filters. Dx: 327.23 SIMVASTATIN (ZOCOR) 40 MG TABLET Take 40 mg by mouth nightly. VENLAFAXINE (EFFEXOR) 75 MG TABLET Take 37.5 mg by mouth 2 times daily. Modified Medications No medications on file Discontinued Medications No medications on file Physical Exam: Vitals:Temp: [36.2 C (97.2 F)] 36.2 C (97.2 F) Pulse: [78] 78 Resp: [18] 18 BP: (120)/(64) 120/64 mmHg Gen.: Performance status ECoG 1 . Well nourished, appears well not in apparent distress.. Extremities: No edema Musculoskeletal: Patient is in a wheelchair today LABORATORY DATA: Recent Results (from the past 24 hour(s)) COMPREHENSIVE METABOLIC PANEL Result Value Range NA 137 136-149 mmol/L K 3.9 3.5-5.1 mmol/L CL 107 98-109 mmol/L CO2 27 24-31 mmol/L ANION GAP 3 3-16 mmol/L GLUCOSE 96 70-109 mg/dL BUN 12 7-18 mg/dL Creatinine, Serum/Plasma 0.80 0.60-1.30 mg/dL eGFR if not >60 >=60 mL/min/1.73m2 CALCIUM 8.6 8.3-10.5 mg/dL ALBUMIN 3.1 (*) 3.2-5.0 g/dL BILIRUBIN TOTAL 0.7 0.1-1.5 mg/dL Total protein 6.0 6.0-7.8 g/dL AST 25 10-42 U/L ALT 21 6-45 U/L ALK PHOS 59 40-110 U/L GLOBULIN 2.9 Albumin/Globulin ratio 1.1 BUN/CREA 15.0 CBC WITH DIFFERENTIAL Result Value Range WBC 4.6 4.0-11.0 K/uL RBC 3.73 3.70-5.20 M/uL Hgb 11.4 (*) 11.5-16.0 g/dL Hct 35.4 34.0-47.0 % MCV 94.9 83.0-101.0 fL MCH 30.5 28.0-35.0 pg MCHC 32.1 32.0-36.0 g/dL RDW 19.3 (*) <15.0 % Platelet Count 193 140-440 K/uL MPV 7.8 % Neutrophils 81.9 45.0-82.0 % % Lymphocytes 8.8 (*) 20.0-45.0 % % Monocytes 7.4 4.0-12.0 % % Eosinophils 0.9 0.0-5.0 % % Basophils 1.0 0.0-1.0 % Absolute Neutrophils 3.70 1.80-8.50 K/uL Absolute Lymphocytes 0.40 (*) 0.60-3.20 K/uL Absolute Monocytes 0.30 0.00-1.00 K/uL Absolute Eosinophils 0.00 0.00-0.40 K/uL Absolute Basophils 0.00 0.00-0.10 K/uL Imaging: PET/CT scan June 2014: [facility]: Necrotic right lung lesion wit h [...] on aspirin and Plavix PLAN: Continue cycle #3 carboplatin AUC 2 and Taxol 45 mg/m concurrent with radiation Patient says that she has symptoms of cold, cough and congestion which have not got better and started before initiation of chemotherapy around June 2014 She has already completed multiple rounds of antibiotics including Zithromax and Levaquin w hich have not improved her symptoms Patient has a follow-up appointment to see Dr. Blandon this week She does already taking omeprazole twice daily for GERD Weekly treatment will be followed by 2 [...] this chart may have been created with [employer] voice recognition software. Occasi onal wrong-word or sound-alike substitutions may have occurred due to the inherent guzman itations of voice recognition software. Please read the chart carefully and recognize, using context, where these substitutions have occurred. documented in this enc ounter Plan of Treatment +--------+---------+ + + + | Date | Type | Specialty | Care Team | Description | +--------+---------+ + + + | 03/06/ | Office | Rheumatology | Taisha Santosh, | | | 2019 | Visit | | [address] | | | | | | [facility] | | | | | | [place] [address] | | | | | | [phone] | | | | | | | | +--------+---------+ + + + documented as of this encounter Visit Diagnoses + + | Diagnosis | + + | Recurrent squamous cell carcinoma of lung, unspecified laterality (HCC) - Primary | + + documented in this encounter
--- OUTSIDE RECORDS SUMMARY | ~2019-12-28 | XMS | Encounter Summary ---
Demographics + + + | Address | [address] | | | [place] [address] | + + + | Home Phone | | + + + | Preferred Language | Unknown | + + + | Marital Status | | + + + | Restoration Affiliation | Unknown | + + + | Race | Unknown | + + + | Ethnic Group | Unknown | + + + Author + + + | Author | [facility] | | | and [place] | + + + | Organization | [facility] | | | [...] [place] | | | | | [address] | | + + + + + Care Team Providers + +------+ + | Care Retail Advertising Account Executive Name | Role | Phone | + +------+ + | Davis Ivan MD | PCP | | + +------+ + Encounter Details +--------+ + + + + | Date | Type | Department | Care Team | Description | +--------+ + + + + | 02/01/ | Hospital | [facility] | Conversion | Pain | | 2014 | Encounter | CONVERSION [address] | Transaction, | | | | | [address] | Provider Unknown | | | | | [address] [address] | [phone] | | | | | [address] | | | | | | [phone] | | | +--------+ + + + [...] | 2019 | Visit | | [facility] | | | | | | [address] | | | | | | [place] [address] | | | | | | [phone] | | | | | | | | +--------+---------+ + + + documented as of this encounter Procedures + +--------+ + + + | Procedure Name | Priori | Date/Time | Associated Diagnosis | Comments | | | ty | | | | + +--------+ + + + | XR LUMBAR SPINE 2 OR | Routin | 01/18/2014 | | Results for this | | 3 VW | e | 1:13 AM | | procedure are in the | | | | PDT | | results section. | + +--------+ + + + documented in this encounter Results XR Lumbar Spine 2 or 3 Vw (01/18/2014 1:13 AM PDT) + + | Specimen | [...]
--- OUTSIDE RECORDS SUMMARY | ~2019-12-28 | XMS | Encounter Summary ---
Demographics + + + | Address | [address] | | | [place] [address] | + + + | Home Phone | | + + + | Preferred Language | Unknown | + + + | Marital Status | | + + + | Pentecostal Affiliation | Unknown | + + + | Race | Unknown | + + + | Ethnic Group | Unknown | + + + Author + + + | Author | [facility] | | | and [place] | + + + | Organization | [facility] | | | [...] [address] | | | | | [address] | | + + + + + Care Team Providers + +------+ + | Care Product Marketing Executive Name | Role | Phone | + +------+ + | Davis Ivan MD | PCP | | + +------+ + Reason for Visit +--------+--------+ + | Reason | Onset | Comments | | | Date | | +--------+--------+ + | Other | 12/06/ | | | | 2018 | | +--------+--------+ + Encounter Details +--------+ + + + + | Date | Type | Department | Care Team | Description | +--------+ + + + + | 12/06/ | Telephone | [facility] | Giuliano Padilla, | Other | | 2018 | | ORTHOPEDIC SURGERY | [address] | | | | | [address] | [place] | | | | | [place] | [id number] | | | | | [address] | | | | | | [phone] | | | +--------+ + + + [...] this encounter Miscellaneous Notes Telephone Encounter - Monica Aguilar Cert MA - 12/08/2018 2:51 PM PDTAshley is segundo eduled for surgery next Thursday12/14/18. A preop appointment is scheduled tomorrow 12/09/18.E lectronically signed by Ruddy Bazan MA at 12/08/2018 2:51 PM PDTTelephone Encounter - Agustina Leon - 12/07/2018 4:53 PM PDTPatient called back back to discus s surgical dates, please call patient back when you are available. elephone Encounter - Monica Aguilar Cert MA - 12/07/2018 3:10 PM PDTI called and left Ashley a message asking her to contact the office to discuss surgical dates. Electronically signed by Ruddy Bazan MA t 12/07/2018 3:10 PM PDTTelephone Encounter - Yudith Valladares - 12/06/2018 3:47 PM PDTPat estefani called and would like to set up a surgical date. Please call and advise [phone] ectronically signed by Yudith Valladares at 12/06/2018 3:48 PM PDTdocumented in this encounte r Plan of Treatment +--------+---------+ + + + | Date | Type | Specialty | Care Team | Description | +--------+---------+ + + + | 03/06/ | Office | Rheumatology | Santosh Sumner, | | | 2019 | Visit | | [address] | | | | | | [facility] | | | | | | [place] [address] | | | | | | [phone] | | | | | | | | +--------+---------+ + + + documented as of this encounter Visit Diagnoses + + | Diagnosis | + + | Trigger finger of left thumb - Primary | + + | Trigger finger, left index finger | + + | Trigger middle finger of left hand Trigger finger (acquired) | + + documented in this encounter"
--- OUTSIDE RECORDS SUMMARY | ~2019-12-28 | XMS | Encounter Summary ---
Demographics + + + | Address | [address] | | | [place] [address] | + + + | Home Phone | | + + + | Preferred Language | Unknown | + + + | Marital Status | | + + + | Jewish Affiliation | Unknown | + + + | Race | Unknown | + + + | Ethnic Group | Unknown | + + + Author + + + | Author | [facility] | | | and [place] | + + + | Organization | [facility] | | [...] [place] | | | | | [address] | | + + + + + Care Team Providers + +------+ + | Care Washing Machine Repairer Name | Role | Phone | + +------+ + | Davis Ivan MD | PCP | | + +------+ + Encounter Details +--------+ + + + + | Date | Type | Department | Care Team | Description | +--------+ + + + + | 11/06/ | Orders Only | [facility] | Gurmeet Vargas, | Bronchogenic cancer | | 2017 | | PULMONARY [address] | of right lung (HCC) | | | | [place], | [place] [address] | (Primary Dx) | | | | [place] [address] | [phone] | | | | | [phone] | | | +--------+ + + + [...] | 2019 | Visit | | [address] | | | | | | [facility] [place] [place] | | | | | | [place] [address] | | | | | | [phone] | | | | | | | | +--------+---------+ + + + documented as of this encounter Results XR Chest PA and Lateral (11/06/2016 12:00 PM PDT) + + | Specimen | + + | | + + + + + | Narrative | Performed At | + + + | CLINICAL INFORMATION: progression or stability of right hilar tumor | [facility] | | mass?. COMPARISON: 10/29/[address] chest 11/30/2015. | [facility] | | FINDINGS: Frontal and lateral views of the chest. Left | MEDICAL CENTER | | chest port in place with the tip at the superior vena cava. Cervical | - IMAGING | | spinal fusion hardware. Cholecystectomy clips noted. Lungs: Mild | | | right pleural effusion. Hyperinflation of the lungs with flattening | | | of the hemidiaphragms. Spiculated appearance adjacent to the right | | | hilum consistent with prior radiation therapy change. Left lung is | | | clear. No pneumothorax. Heart: Cardiac silhouette is of normal | | | size. Mediastinum: Mild rightward mediastinal shift consistent | | | with post treatment changes. No enlarging right hilar mass | | | appreciated. IMPRESSION - No enlarging right hilar mass | | | identified. Spiculated appearance adjacent to the right hilum, | | | consistent with post radiation therapy change. Mild right pleural | | | effusion. Emphysematous COPD. Dictated and Signed by: Alex | | | MD [place] Electronically signed: 11/06/2016 1:57 PM | | + + + + + | Procedure Note | + + | Fabián, Rad Results In - 11/06/2016 2:00 PM PDT CLINICAL INFORMATION: progression or | | stability of right hilar tumor mass?.COMPARISON: 10/29/[address] chest | | 11/30/2015.FINDINGS: Frontal and lateral views of the chest. Left chest port in place with | | the tip at the superior vena cava.Cervical spinal fusion hardware.Cholecystectomy clips | | noted.Lungs: Mild right pleural effusion. Hyperinflation of the lungs with flatteningof | | the hemidiaphragms. Spiculated appearance adjacent to the right hilumconsistent with | | prior radiation therapy change. Left lung is clear. Nopneumothorax.Heart: Cardiac | | silhouette is of normal size.Mediastinum: Mild rightward mediastinal shift consistent | | with post treatmentchanges. No enlarging right hilar mass appreciated.IMPRESSION - No | | enlarging right hilar mass identified. Spiculated appearance adjacent to theright hilum, | | consistent with post radiation therapy change.Mild right pleural effusion.Emphysematous | | COPD.Dictated and Signed by: Alex Huddleston MD Electronically signed: 11/06/2016 1:57 | | PM | |consistent with prior radiation therapy change. Left lung is clear. No | |pneumothorax. | | | |Heart: Cardiac silhouette is of normal size. | | | |Mediastinum: Mild rightward mediastinal shift consistent with post treatment | |changes. No enlarging right hilar mass appreciated. | | | | | |IMPRESSION - | | | |No enlarging right hilar mass identified. Spiculated appearance adjacent to the | |right hilum, consistent with post radiation therapy change. | | | |Mild right pleural effusion. | | | |Emphysematous COPD. | | | |Dictated and Signed by: Alex Huddleston MD | | Electronically signed: 11/06/2016 1:57 PM | + + + + + + + | Performing | Address | City/State/Zipcode | Phone Number | | Organization | | | | + + + + + | [facility] | [address] 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
--- OUTSIDE RECORDS SUMMARY | ~2019-12-28 | XMS | Encounter Summary ---
Demographics + + + | Address | [address] | | | [place] [address] | + + + | Home Phone [...] [place] | | | | | [address] | | + + + + + Care Team Providers + +------+ + | Care Car Racer Name | Role | Phone | + [...] Description | +--------+---------+ + + + | 04/13/ | Office | [facility] [place] | Claudia, | Pulmonary nodule | | 2012 | Visit | PULMONARY [address] | Ayana Looney MD | (Primary Dx) | | | | [address] [place], | | | | | | [place] [address] | | | | | | [phone] | | | +--------+---------+ + + + [...] + + + | Blood Pressure | 104/68 | 04/13/2013 12:23 PM | | | | | PST | | + + + + + | Pulse | 98 | 04/13/2013 12:23 PM | | | | | PST | | + + + + + | Temperature | - | - | | + + + + + | Respiratory Rate | - | - | | + + + + + | Oxygen Saturation | 95% | 04/13/2013 12:23 PM | | | | | PST | | + + + + + | Inhaled Oxygen | - | - | | | Concentration | | | | + + + + + | Weight | 73.8 kg (162 lb 12.8 | 04/13/2013 12:23 PM | | | | oz) | PST | | + + + + + | Height | 157.5 cm (5' 2") | 04/13/2013 12:23 PM | | | | | PST | | + + + + + | Body Mass Index | 29.78 | 04/13/2013 12:23 PM | | | | | PST | | + + + + + documented in this encounter Patient Instructions Patient Instructions Ayana Taylor MD - 04/13/2013 12:57 PM PSTHave a chest x-ray and labs today. We will decide on treating empirically based on that. I will see you back in 4 weeks. We will do an x-ray at that time very likely. If we start m edications, you will need monthly liver function tests. documented in this encounter Progress Notes Ayana Taylor MD - 04/13/2013 12:41 PM PSTFormatting of this note might be differe nt from the original. Pulmonary Follow Up Ayana Taylor MD [facility] [address] [place], [address] HPI Thea Carmona is a 67 y.o. female patient of Davis Ivan here today for follo w up of a cavitary nodule. At their last visit, we had tested for aspergillus, coccidiodes, histoplasmosis, and TB. Si nce their last visit she feels like she has been stable from a pulmonary perspective. She h as not had any acute illnesses. All of her tests came back negative. We discussed options including treating empirically, following radiographicaly and doing a biopsy. Her neck makes the risk of biopsy much higher. If she required intubation, she canno t remove her c-spine collar and her neck could be significantly damaged. Pneumothorax or sed ation complications would be significantly increased. Her neck will be healed in 3 months, though she will still have significant rheumatoid arth ritis issues. Past Medical History Past Medical History Diagnosis Date COPD (chronic obstructive pulmonary disease) on albuterol Spondylolisthesis of cervical region Spinal stenosis Osteoporosis Depression Pneumonia 2009 hospitalized 5 days Rheumatoid arthritis on prednisone and methotrexate, Dr. 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 Social History Main Topics Smoking status: Former Smoker -- 1.0 packs/day for 50 years Types: Cigarettes Quit date: 08/21/2012 Smokeless tobacco: None Alcohol Use: No Drug Use: No Comment: marijuana in the remote past Sexually Active: None Other Topics Concern None Social History Narrative [place] With: aloneG[place] up: in [place] previously lived in: [place]posure t o toxic chemicals: noExposure to asbestos: noExposure to tuberculosis: no Has had a PPD or Q uantiferon before: noHas pets at home: cat and a dog Has ever owned birds: yes, 5 years ago Other animal exposures: noHobbies: used to jaja, crossword puzzles, walking her dog Allergies: No Known Allergies Medications: Outpatient Encounter Prescriptions as of 04/13/2013 Medication Sig Dispense Refill albuterol 2.5 mg/3 [...] mg tablet Take 2 mg by mouth Daily. ferrous sulfate (IRON) 28 MG TABS Take 28 mg by mouth Daily. folic acid 1 mg tablet Take 1 mg by mouth 2 times daily. levothyroxine (SYNTHROID) 100 mcg tablet Take 75 mcg by mouth every morning (before deshaun akfast). lisinopril (PRINIVIL, ZESTRIL) 10 mg tablet Take 10 mg by mouth 3 times daily. Magnesium 100 MG CAPS Take by mouth Daily. methotrexate 2.5 mg tablet Take 7.5 mg by mouth Once a week. morphine (MSIR) 30 MG tablet Take 10 mg by mouth every 4 hours as needed. omeprazole (PRILOSEC) 20 mg capsule Take 20 mg by mouth every morning (before breakfast ). predniSONE (DELTASONE) 5 mg tablet Take 5 mg by mouth 3 times daily. simvastatin (ZOCOR) 40 mg tablet Take 40 mg by mouth nightly. venlafaxine (EFFEXOR) 75 MG tablet Take 375 mg by mouth 2 times daily. Objective BP 104/68 | Pulse 98 | Ht 1.575 m (5' 2") | Wt 73.846 kg (162 lb 12.8 oz) | BMI 29.78 kg/m2 | SpO2 95% General Appearance: Alert, cooperative, no distress, appears stated age, wearing c-spine c ollar, sleepy Data: Ref. Range 03/30/2013 13:20 03/30/2013 13:45 QUANTIFERON GOLD TB No range found NEGATIVE Coccidioides Ab by ID Latest Range: () Negative Coccidioides Ab by CF Latest Range: () <1:2 CULTURE FUNGAL WOUND No range found QUANTITY... Aspergillus Antibody Latest Range: () None Detected Histoplasma Ab, Identification Latest Range: () None Detected CULTURE, FUNGUS No range found Rpt Tuberculosis Antigen Value (Ag-Nil) Latest Range: <0.35 IU/mL 0.00 Immunization History Administered Date(s) Administered INFLUENZA, PRESERVATIVE FREE IM 03/22/2013 Pneumococcal (Adult) 03/01/2011 Assessment 1. Pulmonary nodule - Etiology not readily apparent. Unfortuatetly non invasive tests are n on revealing. She is not a good candidate for biopsy at this time. If she had a complication from biopsy, intubation would be incredibly risky with her current cervical spine situation as she is required to wear a c spine collar and risk of damage to her spine would be high w ith neck flexion. This makes risk of conscious sedation much higher. We will attempt to obtain prior imaging for comparison. This may give us a feel for if this is enlarging, or decreasing. Comparing CT scan to chest x-ray is a challenging comparison. We may simply trial treating empirically, and if so, have to choose between itraconazole an d fluconazole as a choice (we are presuming this is fungal as opposed to a bacterial abscess based on appearance on PET scan). The other option is to follow and perform biopsy in 3 mon ths when risk is lower. Plan 1.We will get prior x-ray for comparison. 2.We will plan on treating empirically, either with fluconazole or itraconazole (presuming fungal etiology), and then following radiographicaly. 3.If does not improve with empiric treatment, then when cervical spine has healed, we will proceed with biopsy in another 3 months. She was advised to call if new pulmonary symptoms were to develop. 20 minutes were spent with Ms. Carmona and her with greater than 50% spent in couns eling and coordination of care regarding her nodule and possible treatment options. Return to clinic in 4 weeks, or sooner with concerns. CC: Davis Ivan Portions of this report were transcribed using voice recognition software. Every effort wa s made to ensure accuracy; however, inadvertent computerized branch assistant errors may be pre sent. documented in t his encounter Plan of Treatment +--------+---------+ + + + | Date | Type | Specialty | Care Team | Description | +--------+---------+ + + + | 03/06/ | Office | Rheumatology | Santosh Sumner, | | | 2019 | Visit | | [facility] [address] | | | | | | [facility] | | | | | | [place] [address] | | | | | | [phone] | | | | | | | | +--------+---------+ + + + documented as of this encounter Results XR Chest PA and Lateral (04/13/2013 3:30 PM PST) + + | Specimen | + + | | + + + + + | Narrative | Performed At | + + + | [facility] | [place] | | Department [address] [place] [address] | [facility] | | [ rep ct [address]] [ rep ct [facility] | | [facility]] Signed | - IMAGING | | | | | Patient Name: THEA CARMONA Physician: | | | OFFE. : 1945 Age: 67 Sex: F Unit #: [id number] | | | Exam Date: 04/13/13 Location: LAB | | | Report #: [id number] Page: | | | %(RAD)RES..mtdd.print.filter("pg") of %(RAD) | | | RES..mtdd.print.filter("tpg") | | | | | | Accession Number: [id number] | | | CHEST, PA AND LATERAL, [...] | | | Transcribed Date/Time: 04/13/2013 17:08 Tobacco Primer Machine Operator: | | | <<Signature on File>> | | | Matheus | | | MD Kang04/13/13 4420 <Electronically signed by Matheus Kapadia MD> | | | Matheus Kapadia MD 04/13/13 1817 Tobacco Primer Machine Operator: [employer]georgina | | | Nwfzyqsutgoxo77/13/13 3385 Ayana Taylor MD | | | | | + + + + + + + + | Performing | Address | City/State/Zipcode | Phone Number | | Organization | | | | + + + + + | [facility] | [address] | [place] | [phone] | | [facility] | | [address] | | | - IMAGING | | [...] (L) | 3.2 - 5.0 gm/dL | [facility] | | | | | | [facility] [...] + | [facility] | [address] | [place] | [phone] | | [facility] | | [address] | | | - LABORATORY | | | | + + + + + | [facility] | [address] | [place] | | | [facility] | | [address], [facility] | | | - LABORATORY | | | | + + + + + documented in this encounter Visit Diagnoses + + | Diagnosis | + + | Pulmonary nodule - Primary Solitary pulmonary nodule | + + documented in this encounter
--- OUTSIDE RECORDS SUMMARY | ~2019-12-28 | XMS | Encounter Summary ---
Demographics + + + | Address | [address] | | | [place] [address] | + + + | Home Phone [...] [place] | | | | | [address] | | + + + + + Care Team Providers + +------+ + | Care Operations Manager Assistant Name | Role | Phone | + +------+ + | Davis Ivan MD | PCP | | + +------+ + Reason for Visit +--------+--------+ + | Reason | Onset | Comments | | | Date | | +--------+--------+ + | Other | 10/07/ | | | | 2013 | | +--------+--------+ + Encounter Details +--------+ + + + + | Date | Type | Department | Care Team | Description | +--------+ + + + + | 10/07/ | Telephone | [facility] | Melony Dhaliwal, | Other | | 2013 | | [facility] MED[facility] | RN | | | | | ONCOLOGY CLINIC [address] | | | | | | [address] | | | | | | [place] [address] | | | | | | [phone] | | | +--------+ + + + [...] this encounter Miscellaneous Notes Telephone Encounter - Melony Dhaliwal RN - 10/07/2013 5:00 PM PDTPt picked up Mag Citra te & Milk of Mag ordered by AMANDA Perkins for Dr. Mace and Cipro ordered by Dr. Lu. She didn't know who Luz Bruno was and wasn't sure if she should take it. She had alrea dy taken it as directed since she hadn't had a BM for several days. Warned her to stay clos e to the toilet. The Cipro was ordered by Dr. Lu. Pt. Will start on that tonight.Electro nically signed by Melony Dhaliwal RN at 10/07/2013 5:02 PM PDTdocumented in this encounte r Plan [...] | | | | | [place] [address] | | | | | | [phone] | | | | | | | | +--------+---------+ + + + documented as of this encounter Visit Diagnoses Not on filedocumented in this encounter"
--- OUTSIDE RECORDS SUMMARY | ~2019-12-28 | XMS | Encounter Summary ---
Demographics + + + | Address | [address] | | | [place] [address] | + + + | Home Phone [...] [place] | | | | | [address] | | + + + + + Care Team Providers + +------+ + | Care Finance Clerk Name | Role | Phone | + +------+ + | Davis Ivan MD | PCP | | + +------+ + Encounter Details +--------+ + + + + | Date | Type | Department | Care Team | Description | +--------+ + + + + | 08/07/ | Documentati | [facility] | Keyana Jacques | | | 2014 | on | MED CNT ONCOLOGY | A, OT | | | | | THERAPY [address] | | | | | | [place], | | | | | | [place] [address] | | | | | | [phone] | | | +--------+ + + + [...] as of this encounter Progress Notes Keyana Jacques, OT - 08/07/2014 1:55 [facility] [address] [place] [address] Oncology Rehab Screening Date: 08/07/2014 Patient Information Patient Name: Thea Carmona Date of : 1945 Age: 69 y.o. Patient was seen for oncology rehab screening due to new patient consult. Patient currently being treated for recurrent lung CA and treatment regimen includes IV chemo and radiation. Patient is currently limited in functional mobility and ADLs due to severe SOB w/ activity and significant deconditioning due to prolonged illness prior/concurrent to recurrence of dipti ng CA. She has CG assist 3x/week, uses a cane during ambulation, and has adaptive equip in her BR to assist w/ bathing. Patient uses a w/c for transport of any distance due to SOB; s he did walk approx 20 feet to BR for toileting in infusion room, becoming significantly SOB. O2 sats were at 91%. Patient currently does not have supplemental O2. Instructed patient in pursed lip and diaphragmatic breathing techs for more effective air flow. Also discusse d improving relaxation of shoulders and upper trunk mm during breathing. Patient expresses interest in participating in therapy services in [facility], however, it is this therapist's opinion at this time that patient would have limited tolerance for therapy. Re commend contd intervention for education of energy conservation and breathing techs in cance r ctr and instruction in simple HEP. Transition to OP or HH therapy at slightly later time when demos improved tolerance. Patient would benefit from complete evaluation for cancer rehab program due to deconditioni ng and decreased activity tolerance. Doctor will be contacted to obtain order once patient appears better able to tolerate; Will have follow up visit in cancer center to slowly address needs. Electronically signed by: Keyana Jacques OT, 08/07/2014 13:55 Patient Name: Thea Carmona/: 1945/ documented in this encounter Plan of Treatment +--------+---------+ + + + | Date | Type | Specialty | Care Team | Description | +--------+---------+ + + + | 03/06/ | Office | Rheumatology | Santosh Sumner, | | | 2019 | Visit | | [place] [address] | | | | | | [facility] | | | | | | [place] [address] | | | | | | [phone] | | | | | | | | +--------+---------+ + + + documented as of this encounter Visit Diagnoses Not on filedocumented in this encounter"
--- OUTSIDE RECORDS SUMMARY | ~2019-12-28 | XMS | Encounter Summary ---
Demographics + + + | Address | [address] | | | [place] [address] | + + + | Home Phone [...] [place] | | | | | [address] | | + + + + + Care Team Providers + +------+ + | Care Merit System Director Name | Role | Phone | + +------+ + | Davis Ivan MD | PCP | | + +------+ + Reason for Visit +--------+--------+ + | Reason | Onset | Comments | | | Date | | +--------+--------+ + | Other | 10/02/ | | | | 2014 | | +--------+--------+ + Encounter Details +--------+ + + + + | Date | Type | Department | Care Team | Description | +--------+ + + + + | 10/02/ | Telephone | [facility] | Adelita Lu MD | Other | | 2014 | | MED CTR MED[facility] | Need updated | | | | | ONCOLOGY CLINIC [address] | address | | | | | [address] | | | | | | [place] [address] | | | | | | [phone] | | | +--------+ + + + [...] this encounter Miscellaneous Notes Telephone Encounter - Sandra Hardy RN - 10/02/2014 10:43 AM PDTPatient records fax ed to [facility] at [facility] and confirmed.Electronically signed by Sandra Hardy RN at 2014 10:43 AM PDTTelephone Encounter - Sandra Hardy RN - 10/02/2014 10:02 AM PDTSpo ke to [facility] at [facility] who states that they would be happy to see patient there but they do not h ave an opening prior to 10/11/14. [facility] requests that patient go ahead and see Dr. Lu here on 10/11/14 and then her future appointments can be there at [facility] to see Dr. Park. Th is was discussed with patient and she was happy with this decision. Will fax patients [facility] records to [facility] at [facility]. elephone Encounter - Sandra Hardy RN - 10/02/2014 9:36 AM PDTReturned call to patient. Patient is scheduled to see Dr. Lu here on 10/11/14 when she is here to cover for Dr. Jemal howard. Patient advised of this appointment. I did explain to patie nt the option to see Dr. Park at [facility] when he is there seeing patients on Thursday an d Fridays. She states that she would like to establish care with him there so I will follow up with Shandra at [facility] regarding this. Requested that images recently done at [facility] be pushed to [place] for Dr. Lu should she still see patient here this next week.Electronically si gned by Sandra Hardy RN at 10/02/2014 9:40 AM PDTTelephone Encounter - Terry Turpin - 10/02/2014 9:15 AM PDTThea was hospitalized at [place] 09/27, 09/28, and 09/29. They performed a CT scan while there that showed a mass. Stephanie was a patient of Dr. Lu. She is wanting the doctor to review her CT scan from [place] and give her a call. She is wondering if she needs to be seen for an appointment soon. She can be reached at . documented in this enco unter Plan of Treatment +--------+---------+ + + + | Date | Type | Specialty | Care Team | Description | +--------+---------+ + + + | 03/06/ | Office | Rheumatology | Santosh Sumner, | | | 2019 | Visit | | [place] [address] | | | | | | [facility] | | | | | | [place] [address] | | | | | | [phone] | | | | | | | | +--------+---------+ + + + documented as of this encounter Visit Diagnoses Not on filedocumented in this encounter"
--- OUTSIDE RECORDS SUMMARY | ~2019-12-28 | XMS | Clinical Summary ---
Demographics + + + | Address | [address] | | | [place] [address] | + + + | Home Phone | | + + + | Preferred Language | Unknown | + + + | Marital Status | Single | + + + | Latter Day Affiliation | Unknown | + + + [...] Team Providers + +------+ + | Care Wildlife Biologist Name | Role | Phone | + +------+ + | Ayana Taylor MD | PCP | Unavailable | + +------+ + Source Comments [facility] is fully live [facility] both [facility] and [facility] Allergies Not on File Medications Not on file Active Problems Not [...] recent travel history available. | + + Last Filed Vital Signs Not on file Plan of Treatment + + + + + | Health Maintenance | Due Date | Last Done | Comments | + + + + + | Pneumococcal | 12/14/200 | | | | vaccination (1 of 2 | 9 | | | | - PCV13) | | | | + + + + + | Influenza (Flu) | | | | | vaccination (#1) | 9 | | | + + + + + Results Not on filefrom Last 3 Months Insurance + +--------+ +--------+-------+---------+--------+ | Payer | Benefi | Subscriber | Effect | Phone | Address | Type | | | t Plan | ID | zev | | | | | | / | | Dates | | | | | | Group | | | | | | + +--------+ +--------+-------+---------+--------+ | [employer] | [employer] | xxxxxxxx | 06/03/19 | | | Medica | | | [place] | | 13-Pre | | | id | | | N [place] | | sent | | | | + +--------+ +--------+-------+---------+--------+ + +--------+ +--------+ + + | Guarantor Name | Accoun | Relation to | Date | Phone | Billing Address | | | t Type | Patient | of | | | | | | | | | | + +--------+ +--------+ + + | Dominga Carmona | Person | Self | [birth year] | [address] | | | al/Fam | | 1945 | [phone] | [place] [address] | | | jana | | | 1 (Home) | | + +--------+ +--------+ + +"
--- OUTSIDE RECORDS SUMMARY | ~2019-12-28 | XMS | Encounter Summary ---
Demographics + + + | Address | [address] | | | [place] [address] | + + + | Home Phone [...] [place] | | | | | [address] | | + + + + + Care Team Providers + +------+ + | Care Project Builder Name | Role | Phone | + +------+ + | Davis Ivan MD | PCP | | + +------+ + Encounter Details +--------+ + + + + | Date | Type | Department | Care Team | Description | +--------+ + + + + | 07/12/ | Hospital | [facility] | Conversion | Pain | | 2014 | Encounter | CONVERSION DEP [address] | Transaction, | | | | | [facility] | Provider Unknown | | | | | [place] | [phone] | | | | | [address] | | | | | | [phone] | | | +--------+ + + + [...] | 2019 | Visit | | [place] [address] | | | | | | [facility] | | | | | | [place] [address] | | | | | | [phone] | | | | | | | | +--------+---------+ + + + documented as of this encounter Procedures + +--------+ + + + | Procedure Name | Priori | Date/Time | Associated Diagnosis | Comments | | | ty | | | | + +--------+ + + + | XR LUMBAR SPINE 2 OR | Routin | 03/29/2012 | | Results for this | | 3 VW | e | 3:01 AM | | procedure are in the | | | | PDT | | results section. | + +--------+ + + + documented in this encounter Results XR Lumbar Spine 2 or 3 Vw (03/29/2012 3:01 AM PDT) + + | Specimen | [...]
--- OUTSIDE RECORDS SUMMARY | ~2019-12-28 | XMS | Encounter Summary ---
Demographics + + + | Address | [address] | | | [place] [address] | + + + | Home Phone | | + + + | Preferred Language | Unknown | + + + | Marital Status | | + + + | Voodoo Affiliation | Unknown | + + + [...] [place] | | | | | [address] | | + + + + + Care Team Providers + +------+ + | Care Leaf Conditioner Helper Name | Role | Phone | + +------+ + | Davis Ivan MD | PCP | | + +------+ + Reason for Visit +--------+ + | Reason | Comments | +--------+ + | COPD | | +--------+ + Evaluate & Treat (Routine) +--------+--------+ + + + + | Status | Reason | Specialty | Diagnoses / | Referred By | Referred To | | | | | Procedures | Contact | Contact | +--------+--------+ + + + + | Closed | | Pulmonary | Diagnoses | Moncho, | Claudia, | | | | Disease / | Malignant | Davis | Ayana Looney, | | | | Pulmonology | neoplasm of | MD [address] | | | | | | bronchus and | [address] | | | | | | lung, | [address] | | | | | | unspecified | [place], | | | | | | site | [place] | | | | | | Procedures | [address] | | | | | | OFFICE VISIT | Phone: | | | | | | REGULAR | [phone] | | | | | | | Fax: | | | | | | | [phone] | | +--------+--------+ + + + + Encounter Details +--------+---------+ + + + | Date | Type | Department | Care Team | Description | +--------+---------+ + + + | 11/11/ | Office | [facility] | Offenstein, | MARCE (obstructive | | 2013 | Visit | PULMONARY [address] | Ayana Looney MD | sleep apnea) | | | | [place], | | (Primary Dx); COPD | | | | [place] [address] | | (chronic obstructive | | | | [phone] | | pulmonary disease); | | | | | | Squamous cell | | | | | | carcinoma of lung, | | | | | | stage I, right (HCC) | +--------+---------+ + + + [...] + + + | Blood Pressure | 116/64 | 11/11/2013 2:00 PM | | | | | PDT | | + + + + + | Pulse | 67 | 11/11/2013 2:00 PM | | | | | PDT | | + + + + + | Temperature | - | - | | + + + + + | Respiratory Rate | - | - | | + + + + + | Oxygen Saturation | 98% | 11/11/2013 2:00 PM | | | | | PDT | | + + + + + | Inhaled Oxygen | - | - | | | Concentration | | | | + + + + + | Weight | 69.3 kg (152 lb 11.2 | 11/11/2013 2:00 PM | | | | oz) | PDT | | + + + + + | Height | 157.5 cm (5' 2") | 11/11/2013 2:00 PM | | | | | PDT | | + + + + + | Body Mass Index | 27.93 | 11/11/2013 2:00 PM | | | | | PDT | | + + + + + documented in this encounter Patient Instructions Patient Instructions Ayana Taylor MD - 11/11/2013 2:22 PM PDTUse the Symbicort t wice daily, all the time, with the doses about 12 hours apart. For the allergies, try Zyrtec, Suma or Claritin. If you are struggling with the CPAP machine or using it, let me know. We have a clinic we c an set you up in to help. 2 :29 PM PDT documented in this encounter Progress Notes Ayana Taylor MD - 11/11/2013 2:09 PM PDTFormatting of this note might be differe nt from the original. Sleep Follow Up HPI Thea Carmona is a 68 y.o. female patient of Davis Ivan here today for follow up of obstructive sleep apnea. She notes that she has been trying to wear her CPAP. She notes that she had doctor's appoin tments 5 days last week, and she took it with her, and she could not get it to work. She had them come out to look at it and they fixed something on the machine. She notes that she has since been wearing the machine for a few hours at night. She does no t think that the machine itself is interfering with her sleep. They think that when she wear s the machine and sleeps through the night, she seems to be better. She has many nights wher e she just cannot sleep. She feels like she really understands how to use the machine now. She feels like the ask is comfortable. She occasionally has difficulty with it staying in p lace. She sometimes sleeps with her dentures in and sometimes she does not. This affects how her mask fits. She has a full face mask. She goes to bed at 11pm every night. She is tired and usually falls asleep right away. She wakes up 2 hours later frequently. That is when her issues start. Past Medical History Past Medical History Diagnosis Date COPD (chronic obstructive pulmonary disease) ([facility]) on albuterol Spondylolisthesis of cervical region Spinal stenosis has tried cortisone injections Osteoporosis Depression Pneumonia 2009 hospitalized 5 days Rheumatoid arthritis(714.0) ([facility]) [facility] Hyperlipidemia on simvastatin Hypertension on clonidine and lisinopril Hypothyroidism GERD (gastroesophageal reflux disease) Stroke ([facility]) 2006 Stroke ([facility]) 2007 Squamous cell carcinoma of lung ([facility]) 07/2013 MARCE (obstructive sleep apnea) AHI 11.6 Sputum culture positive for Scopulariopsis species Past Surgical History Past Surgical History Procedure Date Hysterectomy Cholecystectomy Cervical spine surgery 2012 Bladder suspension Shoulder surgery Thumb surgery Shoulder surgery right shoulder Tongue surgery benign per pt Lung biopsy 07/21/13 right lower lobe Lobectomy 09/16/13 right lower lobe Social History: History Social History Marital Status: Spouse Name: N/A Number of Children: N/A Years of Education: N/A 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 Social History Main Topics [...] Concern None Social History Narrative Lives: in [place] With: aloneGrew up: in [place] previously lived in: [place]posure t o toxic chemicals: noExposure to asbestos: noExposure to tuberculosis: no Has had a PPD or Q uantiferon before: noHas pets at home: cat and a dog Has ever owned birds: yes, 5 years ago Other animal exposures: noHobbies: used to jaja, crossword puzzles, walking her dog Allergies: No Known Allergies Medications: Outpatient Encounter Prescriptions as of 11/11/2013 Medication Sig Dispense Refill albuterol 2.5 mg/3 [...] tablet Take 1 mg by mouth Daily. HYDROmorphone (DILAUDID) 4 MG tablet Take 4 mg by mouth every 6 hours as needed. levothyroxine (SYNTHROID) 100 mcg tablet Take 75 mcg by mouth every morning (before deshaun akfast). lisinopril (PRINIVIL, ZESTRIL) 10 mg tablet Take 30 mg by mouth Daily. Magnesium 100 MG CAPS Take by mouth Daily. methotrexate 2.5 mg tablet Take 25 mg by mouth Once a week. omeprazole (PRILOSEC) 20 mg capsule Take 20 mg by mouth Twice daily breakfast/Bedtime. POTASSIUM GLUCONATE Take 1 tablet by mouth Daily. predniSONE (DELTASONE) 5 mg tablet Take 10 mg by mouth Daily. Respiratory Therapy [place] [facility] [place]Med S9 auto CPAP 5-9 cm H2O. Heater and Humidifier . All necessary supplies. AHI 11.6. Diagnosis Code(s)327.23, also has co morbid hypertension , history of stroke. Length of Need 99 months. Please send order to [facility]. 1 each simvastatin (ZOCOR) 40 mg tablet Take 40 mg by mouth nightly. venlafaxine (EFFEXOR) 75 MG tablet Take 37.5 mg by mouth 2 times daily. Review of Systems Constitutional: Denies fever, chills, and sweats. She has been losing weight intentionally . Sleep: See HPI. Eyes: Denies vision change and eye irritation. ENT: Denies earache, decreased hearing, nasal congestion, nosebleeds, sore throat, and rick rseness. Resp: She reports her breathing has been pretty good. She is using the Symbicort 1-2 time s a day. She does not use the nebulizer at all. CV: Denies chest pain, palpitations, syncope, and peripheral edema. GI: Denies heartburn, nausea, vomiting, and abdominal pain. Objective BP 116/64 | Pulse 67 | Ht 1.575 m (5' 2") | Wt 69.264 kg (152 lb 11.2 oz) | BMI 27.92 kg/m2 | SpO2 98% General Appearance: Alert, cooperative, no distress, appears stated age Head: Normocephalic, without obvious abnormality, atraumatic Eyes: PERRL, conjunctiva clear, no scleral icterus, EOM's intact Ears: Normal TM's, external auditory canals, normal acuity Nose: Nares normal, septum midline, mucosa mildly edematous Mouth: No oral lesions or exudate Neck: Supple, symmetrical, no adenopathy Lungs: No accessory muscle use, breath sounds are diminished bilaterally with prolongatio n of the expiratory phase, and some scattered rhonchi, no wheezes, or crackles Chest Wall: No deformity Heart: Regular rate and rhythm, no murmur, rub or gallop Abdomen: Soft, non-tender, non-distended Extremities: No cyanosis, clubbing, or edema Pulses: Radial pulses 2+ and symmetric Skin: Warm and dry Lymph nodes: Cervical and supraclavicular nodes normal CPAP Data: Dates: 10/11/13-11/09/13 Machine type: ResMed S9 auto CPAP Home Health Company: [facility] CPAP Pressure: 5-9 cmH2O Median Titrated Pressure: 4.9 cmH2O 95%tile Pressure: 8.2 cmH2O Maximum Pressure: 8.9 cmH2O AHI: 3.5 events/hour Total number of days: 30 Number of days used: 14 Median daily usage: 3:08 hours Percent of days used for more than 4 hours: 20 % Median leak: 8.4 L/min Immunization History Administered Date(s) Administered INFLUENZA, PRESERVATIVE FREE IM 03/22/2013 Pneumococcal (Adult) 03/01/2011 Assessment 1. MARCE (obstructive sleep apnea) - CPAP compliance has been minimal, though on some days sh e has used for a prolonged period of time. I suggested referral to the difficult CPAP clinic or for mask fitting, but they declined both, feeling like things are improving. 2. COPD (chronic obstructive pulmonary disease) - Doing well on Symbicort, but not using co rrectly. I again reviewed how to dose this correctly and wrote it down for them. 3. Squamous cell carcinoma of lung, stage Ib, right (HCC) - S/p resection. She has seen Dr. Lu in follow up and they have decided to hold chemotherapy given risks from her immunosu ppression and the fungal colonization. She believes she has a CT scan scheduled when she see s Dr. Mace, but if not, we can do here. Plan 1.I encouraged her to use the CPAP nightly. If continued struggles, we can refer to our dif ficult CPAP clinic. 2.I reviewed how to appropriately use the Symbicort and her nebulizer. 3.She will plan on a follow up CT scan with Dr. Mace, and if not we can do one here at the 3 month time period. I have discussed the download from their PAP machine in detail. This shows that their slee p apnea is well controlled, with an AHI of 3.5. It also shows that their leaks are well con trolled. Return to clinic in 4 weeks, or sooner with concerns. 20 minutes were spent with Ms. Carmona and her with greater than 50% spent in couns eling and coordination of care. CC: Davis Ivan MD, José Miguel Mace MD Portions of this report were transcribed using voice recognition software. Every effort wa s made to ensure accuracy; however, inadvertent computerized customer service attendant errors may be pre sent. Electronically signed by: Ayana Taylor MD 11/11/2013 14:09 documented in t his encounter Miscellaneous Notes Miscellaneous - ONEDGARDO SCAN CAPRI - 11/10/2013 12:00 AM PDT documented in this encounter Plan of Treatment +--------+---------+ + + + | Date | Type | Specialty | Care Team | Description | +--------+---------+ + + + | 03/06/ | Office | Rheumatology | Santosh Sumner, | | | 2019 | Visit | | [address] | | | | | | [facility] | | | | | | [place] [address] | | | | | | [phone] | | | | | | | | +--------+---------+ + + + documented as of this encounter Visit Diagnoses + + | Diagnosis | + + | MARCE (obstructive sleep apnea) - Primary Obstructive sleep apnea (adult) (pediatric) | + + | COPD (chronic obstructive pulmonary disease) Chronic airway obstruction, not | | elsewhere classified | + + | Squamous cell carcinoma of lung, stage I, right (HCC) | + + documented in this encounter
--- OUTSIDE RECORDS SUMMARY | ~2019-12-28 | XMS | Encounter Summary ---
Demographics + + + | Address | [address] | | | [place] [address] | + + + | Home Phone [...] [place] | | | | | [address] | | + + + + + Care Team Providers + +------+ + | Care Welder First Class Name | Role | Phone | + +------+ + | Davis Ivan MD | PCP | | + +------+ + Encounter Details +--------+ + + + + | Date | Type | Department | Care Team | Description | +--------+ + + + + | 10/02/ | Episode | [facility] [place] | Klaudia-Marian, | | | 2017 | Changes | ORTHOPEDIC SURGERY | Ruddy Bhatia MA | | | | | [address] | | | | | | [place] | | | | | | [address] | | | | | | [phone] | | | +--------+ + + + [...] | 2019 | Visit | | [address] | | | | | | [facility] | | | | | | [place] [address] | | | | | | [phone] | | | | | | | | +--------+---------+ + + + documented as of this encounter Visit Diagnoses Not on filedocumented in this encounter"
--- OUTSIDE RECORDS SUMMARY | ~2019-12-28 | XMS | Encounter Summary ---
Demographics + + + | Address | [address] | | | [place] [address] | + + + | Home Phone | | + + + | Preferred Language | Unknown | + + + | Marital Status | | + + + | Jainism Affiliation | Unknown | + + + [...] [place] | | | | | [address] | | + + + + + Care Team Providers + +------+ + | Care Java Programming Professor Name | Role | Phone | [...] | | | Trigger | | [place] [address] | | | | | finger, left | | Phone: | | | | | ring finger | | [phone] | | | | | Trigger | | Fax: | | | | | middle | | [phone] | | | | | finger of | | | | | | | left hand | | | | | | | Procedures | | | | | | | [place] | | | | | | [...] + + | 09/28/ | Surgery | [facility] | Giuliano Padilla, | Canceled | | 2019 | | MED CTR OR INTRA OP | [address] | PROCEDURE NOT | | | | [address] | [place] | PERFORMED - Left | | | | [place], [place] | [address] | Thumb, Long and | | | | [address] | | Index Trigger Finger | | | | [phone] | | Release | +--------+---------+ + + [...] with | 1 each | 0 | 04/08/20 | | | Therapy Supplies | nebulizer [...] encounter H&P Notes Giuliano Padilla MD - 09/28/2018 2:08 PM PDTPatient presented with atrial fib new onset wi th rapid vent response and the surgery is cancelled and [facility] signed by Giuliano Padilla MD at 09/28/2018 2:09 PM PDTGiuliano Padilla MD - 09/24/2018 5:53 PM PDT [facility] HISTORY AND PHYSICAL EXAMINATION Pt. Name/Age/: Thea Carmona 73 y.o. 1945 Date of admission: (Not on file) Admitting Physician: Giuliano Padilla Primary Care Physician: Caitlin Chino Chief Complaint/Reason for Visit: Triggering left thumb, index and long fingers History of Present Illness: Patient has had both first cmc arthroplasties done by me in the past and has done well with good improvement in hand function and pain relief. She has developed triggering of multiple digits in both hands. The right hand is milder and intermittent. She has had triggering dave t is worse in the left hand. It is mainly the thumb and long fingers. She previously had com plained of the ring finger but it has resolved and the index finger has started up. She wish es to proceed with trigger finger releases at this time Past Medical History: Past Medical History: Diagnosis [...] arthritis(714.0) on prednisone and methotrexate, Dr. Lewis [place] Spinal stenosis has tried cortisone injections Spondylolisthesis of cervical region Sputum culture positive for Scopulariopsis species Squamous cell carcinoma of lung (HCC) 07/2013 right lower lobe Stroke (HCC) 2006 Stroke ([facility]) 2008 Upper GI bleed 06/[address] [facility] Past Surgical History: Procedure Laterality Date BACK SURGERY 03/2014 BLADDER SUSPENSION BRONCHOSCOPY 07/11/2014 EBUS with right hilar LN biopsy, [facility] Dr. Sierra CERVICAL SPINE SURGERY 2012 CHOLECYSTECTOMY COLONOSCOPY 06/2014 ENDOSCOPY HAND ARTHROPLASTY Left 03/20/2015 Procedure: Left 1st C.M.C. Arthroplasty; Surgeon: Giuliano Padilla MD; Location: [facility] MAIN OR HAND ARTHROPLASTY Right 10/27/2017 Procedure: Right 1st CMC Arthroplasty; Surgeon: Giuliano Padilla MD; Location: [facility] MAIN O R HYSTERECTOMY LOBECTOMY 09/16/13 right lower lobe LUNG BIOPSY 07/21/13 right lower lobe SHOULDER SURGERY SHOULDER SURGERY right shoulder THUMB SURGERY TONGUE SURGERY benign per pt TUNNELED VENOUS PORT PLACEMENT N/A 07/28/2014 Procedure: Port Placement; Surgeon: Chalino Chiu MD; Location: [facility] MAIN OR Allergies: Allergies Allergen Reactions Trazodone Hives Mirtazapine Other (See Comments) Current Medications: No current facility-administered medications for this encounter. Current Outpatient Medications Medication Sig Dispense Refill [...] capsule Take 2,000 Units by mouth Daily. cyclobenzaprine (FLEXERIL) 10 mg tablet Take 10 mg by mouth. folic acid 1 mg tablet 0 furosemide (LASIX) 20 mg tablet Take 20 mg by mouth Daily. 0 GUAIATUSSIN AC 100-10 MG/5ML syrup Take 5 mLs by mouth Daily as needed. 0 HYDROcodone-acetaminophen (NORCO) 5-325 mg per tablet Take 1 tablet by mouth Daily as n eeded. 0 hydrocortisone 2.5% cream Apply 1 Application topically 2 times daily. 0 levothyroxine (SYNTHROID, LEVOTHROID) 125 mcg tablet Take 125 mcg by mouth every mornin g (before breakfast). 0 loperamide (IMODIUM) 2 mg capsule Take 2 mg by mouth as needed. 0 methotrexate 2.5 MG tablet take 6 tablets by mouth every week 0 mirtazapine (REMERON) 15 MG tablet Take 15 mg by mouth nightly. 0 NARCAN 4 MG/0.1ML instill 1 spray in 1 NOSTRIL if needed for opioid overdose may re... (REFER TO PRESCRIPTION NOTES). 0 oxyCODONE (ROXICODONE) 5 mg tablet Take 5 mg by mouth Daily as needed. 0 pantoprazole (PROTONIX) 40 mg tablet Take 40 mg by mouth 2 times daily (before meals). 0 potassium chloride (K-DUR) 20 mEq ER tablet Take 20 mEq by mouth Daily. 0 predniSONE (DELTASONE) 5 mg tablet take 2 tablets by mouth every morning using 40 now t hen cutting back 0 raNITIdine (ZANTAC) 300 MG tablet take 1 tablet by mouth twice a day 0 Respiratory Therapy Supplies (NEBULIZER COMPRESSOR) KIT [...] weekly and 4 1/2 tablet other days. 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 Tobacco Use Smoking status: Former Smoker Packs/day: 1.00 Years: 50.00 Pack years: 50.00 Types: Cigarettes Start date: 03/08/1952 Last attempt to quit: 07/24/2016 Years since quittin.1 Smokeless tobacco: Never Used Substance and Sexual Activity Alcohol use: No Alcohol/week: 0.0 oz Comment: pt states she was an alcoholic for 40 years but quit in 05/2012 Drug use: No Comment: marijuana in the remote past Sexual activity: Not on file Other Topics Concern Not on file Social History Narrative Lives: in [place] With: alone Grew up: in [place] Has previously lived in: [place] Exposure to toxic chemicals: no Exposure to asbestos: no Exposure to tuberculosis: no Has had a PPD or Quantiferon before: no Has pets at home: cat and a dog Has ever owned birds: yes, 5 years ago Other animal exposures: no Hobbies: used to jaja, crossword puzzles, walking her dog Review of Systems: ENT: no sinus pain or drainage CARDIAC no chest pain or palpitations RESPIRATORY positive copd - stable - s/p lobectomy for cancer GASTROINTESTINAL no abdominal pain GENITOURINARY no dysuria NEURO no headaches - positive history of a stroke and is anticoagulated PSYCH negative MUSCULOSKELETAL as above with rheumatoid arthritis - on prednisone ENDOCRINE no diabetes HEMATOLOGIC stopped coumadin 4 days prior SKIN no rashes or skin lesions CONSTITUITIONAL/SYSTEMIC no fevers, chills or sweats Physical Examination: General: Alert, oriented, no acute distress HEENT: Normocephalic, atraumatic Cardiovascular: Regular rate and rhythm, no murmurs Respiratory: Clear to auscultation bilaterally Abdomen: Soft, non-tender, non-distended, positive bowel sounds Extremities: Left hand with reproducible triggering of the thumb and long fingers The index isn't triggering today but is very tender over the A1 samara The ring finger isn't triggering and no tenderness Assessment and Plan: Left thumb, index and long trigger fingers Plan left thumb, index and long trigger finger releases She wishes to have IV sedation and local The goals of the procedures with the inherent risks and reasonable expectations for recover y all outlined She understands and agrees with plan Giuliano Padilla MD do cumented in this encounter Plan of Treatment +--------+---------+ + + + | Date | Type | Specialty | Care Team | Description | +--------+---------+ + + + | 03/06/ | Office | Rheumatology | Santosh Sumner, | | | 2019 | Visit | | [address] | | | | | | [facility] | | | | | | [place] [address] | | | | | | [phone] | | | | | | | [...] 200 mg, Oral, ONCE, Thu | | 19 12:54 | | | [...]
--- OUTSIDE RECORDS SUMMARY | ~2019-12-28 | XMS | Encounter Summary ---
Demographics + + + | Address | [address] | | | [place] [address] | + + + | Home Phone [...] [place] | | | | | [address] | | + + + + + Care Team Providers + +------+ + | Care Director Of Environmental Services Name | Role | Phone | + [...] Description | +--------+--------+ + + + | 03/07/ | Refill | [facility] | Evelyn Leyva | Medication Refill | | 2019 | | RHEUMATOLOGY [address] | [address] | | | | | [place] | [facility] | | | | | [place], [place] | [place] [address] | | | | | [address] | [phone] | | | | | [phone] | | | +--------+--------+ + + + [...] Miscellaneous Notes Telephone Encounter - Kyle Hawk, Preliminary School Psychologist - 03/07/2019 3:23 PM PDTMedic ation requested: MTX By: Tatyana Last filled:01/24/2019 Last Labs:02/22/2019 Last visit:02/22/2019 Next visit: 05/26/2019 Eye exam:n/a No result notes or see result note:n/a Last chart note stated:The patient returns to the clinic for a follow up appointment. She i s on 15mg Methotrexate weekly with 1mg Folic Acid daily and doing well. She is requesting a referral for acupuncture which I sent in. She states the last couple weeks she has noticed a few more aches but states it changes when the weather got colder. She states otherwise her joint pain and stiffness are significant better. We will make no changes and see her back i n 3 months and update blood work. Please advise do cumented in this encounter Plan of Treatment +--------+---------+ + + + | Date | Type | Specialty | Care Team | Description | +--------+---------+ + + + | 03/06/ | Office | Rheumatology | Santosh Sumner, | | | 2019 | Visit | | [address] | | | | | | [facility] | | | | | | [place] [address] | | | | | | [phone] | | | | | | | | +--------+---------+ + + + documented as of this encounter Visit Diagnoses + + | Diagnosis | + + | Rheumatoid arthritis, involving unspecified site, unspecified rheumatoid factor | | presence (HCC) - Primary | + + documented in this encounter"
--- OUTSIDE RECORDS SUMMARY | ~2019-12-28 | XMS | Encounter Summary ---
Demographics + + + | Address | [address] | | | [place] [address] | + + + | Home Phone | | + + + | Preferred Language | Unknown | + + + | Marital Status | | + + + | Samaritan Affiliation | Unknown | + + + | Race | Unknown | + + + | Ethnic Group | Unknown | + + + Author + + + | Author | [facility] | | | and [place] | + + + | Organization | [facility] | | [...] [place] | | | | | [address] | | + + + + + Care Team Providers + +------+ + | Care Automotive Starter Repairer Name | Role | Phone | [...] | | | | | laterality, | [address] | [place] [address] | | | | | sequela | GREG GARZA, | Phone: | | | | | | [place] [address] | [phone] | | | | | | | Fax: | | | | | | | [phone] | +--------+ + + + + + [...] MD | obstructive | | | | [address], | | pulmonary disease) | | | | [place] [address] | | (Primary Dx); | | | | [phone] | | Recurrent squamous | | | [...] COPD (chronic obstructive pulmonary disease) ([facility]) on albuterol Spondylolisthesis of cervical region Spinal stenosis has tried cortisone injections Osteoporosis Depression Pneumonia 2008 hospitalized 5 days Rheumatoid arthritis(714.0) ([facility]) 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 Past Surgical History Past Surgical History Procedure Laterality Date Hysterectomy Cholecystectomy Cervical spine surgery 2012 Bladder suspension Shoulder surgery Thumb surgery Shoulder surgery right shoulder Tongue surgery benign per pt Lung biopsy 07/21/13 right lower lobe Lobectomy 09/16/13 right lower lobe Back surgery 03/2014 Bronchoscopy 07/11/2014 EBUS with right hilar LN biopsy, [facility] Dr. 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 60 tablet [address] [facility] S9 auto CPAP 5-9 cm H2O. Heater [...] PET scan pending.CT scan do ne at [facility] showed area of enlargement previously [...] as surgery und er local block. * [facility] [place] [facility] - AMB Referral Plan 1.Continue [...] made to ensure accuracy; however, inadvertent computerized line camera operator errors may be pre sent. documented in t his encounter Plan of Treatment +--------+---------+ + + + | Date | Type | Specialty | Care Team | Description | +--------+---------+ + + + | 03/06/ | Office | Rheumatology | KimbunnySantosh, | | | 2019 | Visit | | [address] | | | | | | [facility] | | | | | | [place] [address] | | | | | | [phone] | | | | | | | | +--------+---------+ + + + + + +--------+ + + | Name | Type | Priori | Associated Diagnoses | Order Schedule | | | | ty | | | + + +--------+ + + | * [facility] | Outpatient | Routin | Thumb [...]
--- OUTSIDE RECORDS SUMMARY | ~2019-12-28 | XMS | Encounter Summary ---
Demographics + + + | Address | [address] | | | [place] [address] | + + + | Home Phone [...] [place] | | | | | [address] | | + + + + + Care Team Providers + +------+ + | Care Tabular Typist Name | Role | Phone | + [...] Squamous | Jimmy C, DO | [address] | | | | | cell | [address] | [place], | | | | | carcinoma of | [address] | [place] [address] | | | | | lung, stage | [place], | Phone: | | | | | I, right | [place] [address] | [phone] | | | | | (HCC) | Phone: | Fax: | | | | | Procedures | [phone] | [phone] | | | | | CT Treatment | Fax: | | | | | | Plan | [phone] | | | | | | Complex [...] Squamous | Jimmy C, DO | [address] | | | | | cell | [address] | [place], | | | | | carcinoma of | [address] | [place] [address] | | | | | lung, stage | [place], | Phone: | | | | | I, right | [place] [address] | [phone] | | | | | (HCC) | Phone: | Fax: | | | | | Procedures | [phone] | [phone] | | | | | CT Treatment | Fax: | | | | | | Plan | [phone] | | | | | | Complex | | | +--------+--------+ + + + + Encounter Details +--------+ + + + + | Date | Type | Department | Care Team | Description | +--------+ + + + + | 07/26/ | Hospital | [facility] | Jimmy Banegas DO | 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 | Encounter | MED CTR [address] | [address] | carcinoma of lung, | | | | [place], | [place], [place] | stage I, right (HCC) | | | | [place] [address] | [address] | | | | | [phone] | | | +--------+ + + + [...] | 2020 | Visit | | [address] | | | | | | [address] [address] | | | | | | [place] [address] | | | | | | [phone] | | | | | | | | +--------+---------+ + + + documented as of this encounter Procedures + +--------+ + + + | Procedure Name | Priori | Date/Time | Associated Diagnosis | Comments | | | ty | | | | + +--------+ + + + | CT TREATMENT PLAN | Routin | 07/26/2014 | Squamous cell | Results for this | | COMPLEX | e | 11:49 AM | carcinoma of lung, | procedure are in the | | | | PST | stage I, right (HCC) | results section. | + +--------+ + + + documented in this encounter Results CT Treatment Plan Complex [...] iohexol (OMNIPAQUE 350) 350 | Given | 07/26/19 | 70 mLs | | | | mg/mL injection 70 mL 70 mL, | | 15 11:49 | | | | | Intravenous, ONCE PRN, Other, | | AM PST | | | | | Starting 07/26/14 at 1149, For | | | | | | | 1 dose, Cat Scanner | | | | | | + +--------+ +--------+------+------+ +---+---+ | | | +---+---+ documented in this encounter"
--- OUTSIDE RECORDS SUMMARY | ~2019-12-28 | XMS | Encounter Summary ---
Demographics + + + | Address | [address] | | | [place] [address] | + + + | Home Phone [...] [place] | | | | | [address] | | + + + + + Care Team Providers + +------+ + | Care Tools Administrator Name | Role | Phone | + +------+ + | Davis Ivan MD | PCP | | + +------+ + Reason for Visit +--------+ + | Reason | Comments | +--------+ + | Cancer | IDT nutrition | +--------+ + Evaluate & Treat (Routine) +--------+ + + + + + | Status | Reason | Specialty | Diagnoses / | Referred By | Referred To | | | | | Procedures | Contact | Contact | +--------+ + + + + + | Closed | Specialty | Nutrition | Diagnoses | [facility] | | Services | | Malignant | Infusion | Nutrition | | | Required | | neoplasm of | [address] | [address] | | | | | bronchus and | [place] | [address] | | | | | lung, | [place], [place] | [place], | | | | | unspecified | [address] | [place] [address] | | | | | site | Phone: | Phone: | | | | | | [phone] | [phone] | | | | | | Fax: | Fax: | | | | | | [phone] | [phone] | +--------+ + + + + + Encounter Details +--------+ + + + + | Date | Type | Department | Care Team | Description | +--------+ + + + + | 08/07/ | Hospital | [facility] | Adelita Lu MD | Malignant neoplasm | | 2015 | Encounter | MED CTR NUTRITION | Need updated | of bronchus and | | | | SERVICES [address] | address House, | lung, unspecified | | | | [address] [place], | Sabiha Wang RDN | site ([facility]) (Primary | | | | [place] [address] | | Dx) | | | | [phone] | | | +--------+ + + + [...] documented as of this encounter Progress Notes Sabiha Lange, RD - 08/07/2014 12:41 PM PDTFormatting of this note might be different fr om the original. Medical Nutrition Note SUBJECTIVE: States she has no appetite, has lost three pounds in the past week, drinks Ens ure one time a day. OBJECTIVE: Diet: High Protein High calorie Wt Readings from Last 3 Encounters: 08/07/14 68.3 kg (150 lb 9.2 oz) 08/07/14 68.3 kg (150 lb 9.2 oz) 07/28/14 68.947 kg (152 lb) Ht Readings from Last 1 Encounters: 08/07/14 1.575 m (5' 2.01") BMI 37.53 Labs: Lab Results Component Value Date ALBUMIN 3.2 08/07/2014 Estimated needs (wt. 68kg) 8114-7475 kcals/day 68 gm pro/day Medications: noted ASSESSMENT/PLAN: Nutrition Diagnosis: Inadequate oral intake related to no appetite as evidenced by three p ound weight loss in one week and verbalization from the pt. Interventions: 1. High protein high calorie MNT 2. Add supplements between meals Nutrition Goals: 1. Prevention of weight loss 2. Increase oral intake Monitor: 1. weight 2. Increasing oral intake Sabiha Lange RD 08/07/2014 12:41 documented in this e ncounter Plan of Treatment +--------+---------+ + + + | Date | Type | Specialty | Care Team | Description | +--------+---------+ + + + | 03/06/ | Office | Rheumatology | Santosh Sumner, | | | 2019 | Visit | | [address] | | | | | | [facility] | | | | | | [place] [address] | | | | | | [phone] | | | | | | | | +--------+---------+ + + + + + +--------+ + + | Name | Type | Priori | Associated Diagnoses | Order Schedule | | | | ty | | | + + +--------+ + + | Ambulatory referral | Outpatient | Routin | Malignant neoplasm | Ordered: 07/26/2014 | | to Nutrition | Referral | e | of bronchus and | | | Services | | | lung, unspecified | | | | | | site (HCC) | | + + +--------+ + + documented as of this encounter Visit Diagnoses + + | Diagnosis | + + | Malignant neoplasm of bronchus and lung, unspecified site - Primary | + + documented in this encounter
--- OUTSIDE RECORDS SUMMARY | ~2019-12-28 | XMS | Encounter Summary ---
Demographics + + + | Address | [address] | | | [place] [address] | + + + | Home Phone | | + + + | Preferred Language | Unknown | + + + | Marital Status | | + + + | Church Affiliation | Unknown | + + + [...] [address] | | | | | [address] | | + + + + + Care Team Providers + +------+ + | Care [employer] School Social Studies Teacher Name | Role | Phone | + +------+ + | Davis Ivan MD | PCP | | + +------+ + Reason for Visit + +--------+ + | Reason | Onset | Comments | | | Date | | + +--------+ + | Annual Exam | 08/18/ | | | | 2013 | | + +--------+ + Encounter Details +--------+ + + + + | Date | Type | Department | Care Team | Description | +--------+ + + + + | 08/18/ | Telephone | [facility] | Adelita Lu MD | Annual Exam | | 2013 | | [facility] | Need updated | | | | | [facility] [address] address | | | | | [address] | | | | | | [place] [address] | | | | | | [phone] | | | +--------+ + + + [...] this encounter Miscellaneous Notes Telephone Encounter - Bimal Leal - 08/19/2013 8:17 AM PDTScheduled with Yadi in pulmonary. Thank you elephone Encounter - Bimal Leal - 08/18/2013 9:02 AM PDTThe PFT order for Thea lopez needs to clarify if you want the 6 min walk. Also, this order needs to be placed as a hospital performed test, not ancillary performed. Please update the orderElectronically sign ed by Bimal Leal at 08/18/2013 9:09 AM PDTdocumented in this encounter Plan of Treatment +--------+---------+ + + + | Date | Type | Specialty | Care Team | Description | +--------+---------+ + + + | 03/06/ | Office | Rheumatology | Santosh Sumner, | | | 2020 | Visit | | [address] | | | | | | [facility] | | | | | | [place] [address] | | | | | | [phone] | | | | | | | | +--------+---------+ + + + documented as of this encounter Results PFT PULMONARY FUNCTION TESTING [...] signed by: Ayana Taylor MD 09/01/2013 6:07 [facility] | | | [facility] CC: Davis Ivan | | | | [...] Ayana Taylor MD 09/01/2013 6:07[facility] | | [facility] | |[facility] | | | |CC: Davis Ivan | + + documented in this encounter Visit Diagnoses + + | Diagnosis | + + | Lung cancer (HCC) - Primary Malignant neoplasm of bronchus and lung, unspecified site | + + documented in this encounter"
--- OUTSIDE RECORDS SUMMARY | ~2019-12-28 | XMS | Encounter Summary ---
Demographics + + + | Address | [address] | | | [place] [address] | + + + | Home Phone | | + + + | Preferred Language | Unknown | + + + | Marital Status | | + + + | Hindu Affiliation | Unknown | + + + | Race | Unknown | + + + | Ethnic Group | Unknown | + + + Author + + + | Author | [facility] | | | and [place] | + + + | Organization | [facility] | | | [...] [place] | | | | | [address] | | + + + + + Care Team Providers + +------+ + | Care Supervisor Cutting Department Name | Role | Phone | + +------+ + | Davis Ivan MD | PCP | | + +------+ + Reason for Visit +--------+ + | Reason | Comments | +--------+ + | Cough | f/u | +--------+ + Encounter Details +--------+---------+ + + + | Date | Type | Department | Care Team | Description | +--------+---------+ + + + | 10/11/ | Office | [facility] [place] | [place], | Cough; Squamous cell | | 2014 | Visit | PULMONARY [address] | Ayana Looney MD | lung cancer, | | | | [place], | | unspecified | | | | [place] [address] | | laterality (HCC); | | | | [phone] | | COPD (chronic | | | | | | obstructive | | | | | | pulmonary disease); | | | | | | Gastroesophageal | | | | | | reflux disease | | | | | | without esophagitis | +--------+---------+ + + + Social History [...] + + + | Blood Pressure | 126/68 | 10/11/2014 11:56 AM | | | | | PDT | | + + + + + | Pulse | 79 | 10/11/2014 11:56 AM | | | | | PDT | | + + + + + | Temperature | - | - | | + + + + + | Respiratory Rate | 16 | 10/11/2014 11:56 AM | | | | | PDT | | + + + + + | Oxygen Saturation | 96% | 10/11/2014 11:56 AM | room air | | | | PDT | | + + + + + | Inhaled Oxygen | - | - | | | Concentration | | | | + + + + + | Weight | 67.3 kg (148 lb 4.8 | 10/11/2014 11:56 AM | | | | oz) | PDT | | + + + + + | Height | 157.5 cm (5' 2") | 10/11/2014 11:56 AM | | | | | PDT | | + + + + + | Body Mass Index | 27.12 | 10/11/2014 11:56 AM | | | | | PDT | | + + + + + documented in this encounter Patient Instructions Patient Instructions Ayana Taylor MD - 10/11/2014 12:38 PM PDTStop the Spiriva. Stay on Symbicort twice daily. Start Tudorza one inhalation twice daily. Continue the albuterol inhaler and nebulizer as needed. I am reordering the hydrocodone cough syrup. Do not take with other Tylenol or acetaminophe n containing products. Have Dr. Ivan refer you to GI with the records from the [facility], I would agree that an endoscopy would be appropriate as well. documented in this encounter Progress Notes Ayana Taylor MD - 10/11/2014 11:58 AM PDTFormatting of this note might be differe nt from the original. Pulmonary Follow Up HPI Thea Carmona is a 69 y.o. female patient of Davis Ivan here today for follow up of cough and COPD. At their last visit, we had scheduled an UGI barium swallow. Since last seen, she developed significant chest pain after her last radiation treatment. She was admitted to [facility]. She was treated with 3 days of: IV methylprednisolone, meropenem, doxycycline, levofloxac in, and metronidazole. She notes that after receiving this, she felt much better. Her chest pain went away with these treatments. They felt that likely her cough and chest pain were fr om her recurrent malignancy. She is still coughing. She is taking cough syrup which helps. She has her UGI scheduled for next week. She feels like the nebulizer helps. She is not producing any mucous when she cou ghs. She is currently on a regimen of Symbicort twice daily and Spiriva once daily. Currently kierra mares is using her rescue inhaler, albuterol, 2 times a day. She is using her nebulizer, albut arun, 2-4 times a day. She returns today for routine follow up. Currently she is able to walk 100 yards at her own pace on level ground. She is not walking very much right now. She has been evaluated for nocturnal oxygen and does not need to use it. She does not have symptoms of heartburn or reflux. She is taking omeprazole 20mg twice massimo y. She is also taking ranitidine 150mg twice daily. Past Medical History Past Medical History Diagnosis Date COPD (chronic obstructive pulmonary disease) ([facility]) on albuterol Spondylolisthesis of cervical region Spinal stenosis has tried cortisone injections Osteoporosis Depression Pneumonia 2008 hospitalized 5 days Rheumatoid arthritis(714.0) ([facility]) 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 Past Surgical History Past Surgical History Procedure Laterality Date Hysterectomy Cholecystectomy Cervical spine surgery 2013 Bladder suspension Shoulder surgery Thumb surgery Shoulder surgery right shoulder Tongue surgery benign per pt Lung biopsy 07/21/13 right lower lobe Lobectomy 09/16/13 right lower lobe Back surgery 03/2014 Bronchoscopy 07/11/2014 EBUS with right hilar LN biopsy, [facility] Dr. 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 Social History Main Topics [...] Concern None Social History Narrative Lives: in [place] With: alone Grew up: in [place] Has previously lived in: [place] Exposure to toxic chemicals: no Exposure to asbestos: no Exposure to tuberculosis: no Has had a PPD or Quantiferon before: no Has pets at home: cat and a dog Has ever owned birds: yes, 5 years ago Other animal exposures: no Hobbies: used to jaja, crossword puzzles, walking her dog Allergies: No Known Allergies Medications: Outpatient Encounter Prescriptions as of 10/11/2014 Medication Sig Dispense Refill albuterol 2.5 mg/3 [...] 25 mg by mouth Once a week. mirabegron (MYRBETRIQ) 25 mg ER tablet Take 25 mg by mouth Daily. omeprazole (PRILOSEC) 20 mg capsule Take 20 mg by mouth 2 times daily. predniSONE (DELTASONE) 5 mg tablet Take 10 mg by mouth Daily. ranitidine (ZANTAC) 150 mg tablet Take 1 tablet by mouth 2 times daily. 60 tablet 1 Respiratory Therapy Supplies [facility] S9 auto CPAP 5-9 cm H2O. Heater and Humidifier . All necessary supplies. AHI 11.6. Diagnosis Code(s)327.23, also has co morbid hypertension , history of stroke. Length of Need 99 months. Please send order to [facility]. 1 each 99 simvastatin (ZOCOR) 40 mg tablet Take 40 mg by mouth nightly. sucralfate (CARAFATE) 1 g tablet Take 1 tablet by mouth 3 times daily as needed for up to 30 doses. Crush 1 tablet in 2 teaspoons of liquid (water, etc.) 90 tablet 0 tiotropium (SPIRIVA HANDIHALER) 18 mcg inhalation capsule Inhale 1 capsule into the jeni gs Daily. 30 capsule 11 venlafaxine (EFFEXOR) 75 MG tablet Take 37.5 mg by mouth 2 times daily. Facility-Administered Encounter Medications as of 10/11/2014 Medication Dose Route Frequency Provider Last Rate Last Dose heparin 100 units/mL flush 500 Units 5 mL Intercatheter PRN Adelita Lu MD 500 Un its at 10/11/14 1129 Review of Systems: General: []Weight loss/gain (over 10 lbs) []Fever/chills/sweats [x]Night sweats EENT: []Hearing loss []Vision loss/change []Sinus congestion/nasal drainage []Nosebleeds [x ]Hoarseness Cardiac: []Chest pain []Palpitations/heart racing [x]Swelling of legs/ankles []Waking up at night short of breath []Difficulty sleeping flat Gastrointestinal: []Nausea/vomiting []Difficulty swallowing [x]Heartburn/acid reflux [x]Loss of appetite []A bdominal pain Urologic: []Blood in urine []Frequent urination at night []Burning/painful urination []Difficulty wit h urination Objective Pulse 79 | Ht 1.575 m (5' 2") | Wt 67.268 kg (148 lb 4.8 oz) | BMI 27.12 kg/m2 | SpO2 96% R A General Appearance: Alert, cooperative, no distress, appears [...] Soft, non-tender, non-distended Extremities: No cyanosis, clubbing, trace to 1+ bilateral lower extremity edema Pulses: Radial pulses 2+ and symmetric Skin: Warm and dry Lymph nodes: Cervical and supraclavicular nodes normal Data: LE venous doppler was performed on September 21, 2014 and results were reviewed in clinic today . It shows no evidence of DVT. Hospital notes were reviewed in clinic today. Chest CT scan from [facility] was reviewed. This shows resolution of right sided cavitar y nodule (presumably malignant). There is slight interval enlargement in lymph node mass. Th ere is also some thickening in the pleural area posterior to this, presumably reactive ascencio es post radiation. Immunization History Administered Date(s) Administered INFLUENZA, TRIVALENT PRESERVATIVE FREE (PED/ADOL/ADULT) 03/22/2013, 02/15/2014 PNEUMOCOCCAL CONJUGATE 13-VALENT (PCV13) 07/14/2014 PNEUMOCOCCAL POLYSACCHARIDE 23-VALENT (PPSV23) 03/01/2011 Assessment ICD-9-CM 1. Cough 786.2 I suspect that given the course of this it is either one of two things: refl ux related or radiation related. The timing seems to fit with her radiation treatments. It c ould also be related to her malignancy. There is no convincing evidence of infection, and th e previously seen cavitary nodule has now resolved, and was likely part of her malignant pro cess. 2. Squamous cell lung cancer, unspecified laterality (HCC) 162.9 Recurrent right sided nodu le with associated adenopathy after a left sided resection. Se has completed chemotherapy an d radiation and is being followed. I am interested to know Dr. Banegas's thoughts on her recent CT scan and if the enlargement is consistent with post reactive changes (I suspect yes) and if he thinks that some of the pleural thickening posteriorly could be from her radiation. HYDROcodone-acetaminophen (HYCET) 7.5-325 mg/15 mL liquid 3. COPD (chronic obstructive pulmonary disease) 496 On Spiriva and Symbicort. Given that up to 10% can have a paradoxical reaction to Spiriva (though cough predates use of Spiriva), w e will try changing to Tudorza. In addition, Spiriva can worsen heartburn, which may also be a culprit. Perhaps with change to a newer generation inhaler, we can decrease side effect. 4. Gastroesophageal reflux disease without esophagitis 530.81 On omeprazole and ranitidine and finally no longer having heartburn. I did think that endoscopy at time of follow up colo noscopy would be appropriate. Plan 1.Change Spiriva to Tudorza 1 inhalation twice daily. 2.Have UGI barium swallow. 3.Endoscopy at time of follow up colonoscopy. 4. I would ask Dr. Banegas to review her chest CT and see what his thoughts are on her lymph n ode mass and pleural thickening. She was advised to call if new pulmonary symptoms were to develop. Return to clinic in 8 weeks, or sooner with concerns. CC: Davis Ivan Portions of this report were transcribed using voice recognition software. Every effort wa s made to ensure accuracy; however, inadvertent computerized dental assistant instructor errors may be pre sent. documented in t his encounter Plan of Treatment +--------+---------+ + + + | Date | Type | Specialty | Care Team | Description | +--------+---------+ + + + | 03/06/ | Office | Rheumatology | Santosh Sumner, | | | 2019 | Visit | | [address] | | | | | | [facility] | | | | | | [place] [address] | | | | | | [phone] | | | | | | | | +--------+---------+ + + + documented as of this encounter Visit Diagnoses + + | Diagnosis | + + | Cough | + + | Squamous cell lung cancer, unspecified laterality (HCC) | + + | COPD (chronic obstructive pulmonary disease) Chronic airway obstruction, not | | elsewhere classified | + + | Gastroesophageal reflux disease without esophagitis Esophageal reflux | + + documented in this encounter
--- OUTSIDE RECORDS SUMMARY | ~2019-12-28 | XMS | Encounter Summary ---
Demographics + + + | Address | [address] | | | [place] [address] | + + + | Home Phone | | + + + | Preferred Language | Unknown | + + + | Marital Status | | + + + | Yarsani Affiliation | Unknown | + + + | Race | Unknown | + + + | Ethnic Group | Unknown | + + + Author + + + | Author | [facility] | | | and [place] | + + + | Organization | [facility] | | [...] [place] | | | | | [address] | | + + + + + Care Team Providers + +------+ + | Care Bead Preparer Name | Role | Phone | + +------+ + | Caitlin Chino MD | PCP | | + +------+ + Encounter Details +--------+ + + + + | Date | Type | Department | Care Team | Description | +--------+ + + + + | 11/29/ | Orders Only | [facility] | Arlin Hussein | Rheumatoid | | 2019 | | [address] | [place], [place]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 Simply avoids excessive NSAID use and hydrate as much as possible and we will repeat in 2 w togiak. Please also notify your PCP of this. The orders made - you can go to any TCL to have th rachell done. Also elevation in WBC count which could be a sign of infection. If any concern for infectio n she needs to follow up with PCP or UCElectronically signed by Santosh Sumner PA-C at 07/2019 8:46 AM PDTdocumented in this encounter Plan of Treatment +--------+---------+ + + + | Date | Type | Specialty | Care Team | Description | +--------+---------+ + + + | 03/06/ | Office | Rheumatology | Santosh Sumner, | | 2019 | Visit | | [facility] [address] | | | | | | [facility] | | | | | | [place] [address] | | | | | | [phone] | | | | | | | | +--------+---------+ + + + documented as of this encounter Procedures + +--------+ + + + | Procedure Name | Priori | Date/Time | Associated Diagnosis | Comments | | | ty | | | | + +--------+ + + + | SEDIMENTATION RATE | Today | 11/30/2019 | Rheumatoid | Results for this | | | | 2:19 PM | arthritis, involving | procedure are in the | | | | PDT | unspecified site, | results section. | | | | | unspecified | | | | | | rheumatoid factor | | | | | | presence (HCC) High | | | | | | risk medication use | | + +--------+ + + + | CBC WITH | Today | 11/30/2019 | Rheumatoid | Results for this | | DIFFERENTIAL | | 2:19 PM | arthritis, involving | procedure are in the | | | | PDT | unspecified site, | results section. | | | | | unspecified | | | | | | rheumatoid factor | | | | | | presence (HCC) High | | | | | | risk medication use | | + +--------+ + + + | C-REACTIVE PROTEIN | Today | 11/30/2019 | Rheumatoid | Results for this | | | | 2:19 PM | arthritis, involving | procedure are in the | | | | PDT | unspecified site, | results section. | | | | | unspecified | | | | | | rheumatoid factor | | | | | | presence (HCC) High | | | | | | risk medication use | | + +--------+ + + + | COMPREHENSIVE | Today | 11/30/2019 | Rheumatoid | Results for this | | METABOLIC PANEL | | 2:19 PM | arthritis, involving | procedure are in the | | | | PDT | unspecified site, | results section. | | | | | unspecified | | | | | | rheumatoid factor | | | | | | presence (HCC) High | | | | | | risk medication use | | + +--------+ + + + documented in this encounter Results CBC with Differential (11/30/2019 2:19 PM PDT) + + + + + + | Component | Value | Ref Range | Performed | Pathologist | | | | | At | Signature | + + + + + + | WBC | 12.50 (H) | 3.80 - 11.00 | REFERENCE | | | | | K/uL | LAB | | | | | | [facility] | | | | | | LABORATORY | | + + + + + + | Red Blood | 3.96 | 3.70 - 5.10 | REFERENCE | | | Cells | | M/uL | LAB | | | | | | [facility] | | | | | | LABORATORY | | + + + + + + | Hemoglobin | 12.2 | 11.3 - 15.5 | REFERENCE | | | | | g/dL | LAB | | | | | | [facility] | | | | | | LABORATORY | | + + + + + + | Hematocrit | 39.5 | 34.0 - 46.0 % | REFERENCE | | | | | | LAB | | | | | | [facility] | | | | | | LABORATORY | | + + + + + + | MCV | 99.7 | 80.0 - 100.0 fl | REFERENCE | | | | | | LAB | | | | | | [facility] | | | | | | LABORATORY | | + + + + + + | MCH | 30.8 | 27.0 - 34.0 pg | REFERENCE | | | | | | LAB | | | | | | [facility] | | | | | | LABORATORY | | + + + + + + | MCHC | 30.9 (L) | 32.0 - 35.5 | REFERENCE | | | | | g/dL | LAB | | | | | | [facility] | | | | | | LABORATORY | | + + + + + + | RDW-SD | 57.8 (H) | 37 - 53 fl | REFERENCE | | | | | | LAB | | | | | | [facility] | | | | | | LABORATORY | | + + + + + + | Platelet | 255 | 150 - 400 K/uL | REFERENCE | | | Count | | | LAB | | | | | | [facility] | | | | | | LABORATORY | | + + + + + + | MPV | 10.2Comment: NO NORMAL | fl | REFERENCE | | | | RANGE ESTABLISHED | | LAB | | | | | | [facility] | | | | | | LABORATORY | | + + + + + + | Diff Type | AUTOMATED | | REFERENCE | | | | | | LAB | | | | | | [facility] | | | | | | LABORATORY | | + + + + + + | % nRBC | 0.0 | 0 /100WBC | REFERENCE | | | | | | LAB | | | | | | [facility] | | | | | | LABORATORY | | + + + + + + | % | 84.10 | % | REFERENCE | | | Neutrophils | | | LAB | | | | | | [facility] | | | | | | LABORATORY | | + + + + + + | IMMATURE | 1.30 | % | REFERENCE | | | GRANULOCYTE | | | LAB | | | | | | [facility] | | | | | | LABORATORY | | + + + + + + | % | 8.00 | % | REFERENCE | | | Lymphocytes | | | LAB | | | | | | [facility] | | | | | | LAB[facility] | | + + + + + + | Monocyte % | 5.80 | % | REFERENCE | | | | | | LAB | | | | | | [facility] | | | | | | LABORAT[facility] | | + + + + + + | Eosinophils | 0.60 | % | REFERENCE | | | % | | | LAB | | | | | | [facility] | | | | | | LABORAT[facility] | | + + + + + + | Basophils % | 0.20 | % | REFERENCE | | | | | | LAB | | | | | | [facility] | | | | | | LABORAT[facility] | | + + + + + + | Neutrophils | 10.50 (H) | 1.90 - 7.40 | REFERENCE | | | , Absolute | | K/uL | LAB | | | | | | [facility] | | | | | | LABORAT[facility] | | + + + + + + | IMMATURE | 0.16 (H)Comment: NOTE | 0.00 - 0.07 | REFERENCE | | | GRANS AB | NEW REFERENCE RANGE | K/uL | LAB | | | | | | [facility] | | | | | | LABORAT[facility] | | + + + + + + | Absolute | 1.00 | 1.00 - 3.90 | REFERENCE | | | Lymphocytes | | K/uL | LAB | | | | | | [facility] | | | | | | LABORAT[facility] | | + + + + + + | Absolute | 0.73 | 0.00 - 0.80 | REFERENCE | | | Monocytes | | K/uL | LAB | | | | | | [facility] | | | | | | LABORATORY | | + + + + + + | Eosinophils | 0.08 | 0.00 - 0.50 | REFERENCE | | | , Absolute | | K/uL | LAB | | | | | | [facility] | | | | | | LABORATORY | | + + + + + + | Basophils, | 0.03Comment: Testing | 0.00 - 0.10 | REFERENCE | | | Absolute | performed at [facility];[address] | K/uL | LAB | | | | [facility] | | [facility] | | | | Blvd;[place] [address] | | LABORATORY | | + + + + + + + + | Specimen | + + | Blood | + + + + + + + | Performing | Address | City/State/Zipcode | Phone Number | | Organization | | | | + + + + + | REFERENCE LAB | [address] [place] [address] | [place] | [phone] | | [facility] | Bl[address] | [address] | | | LABORATORY | | | | + + + + + | REFERENCE LAB | [address] [place] [address] | [place] | | | [facility] | Bl[address] | [address] | | | LABORATORY | | | | + + + + + Comprehensive Metabolic Panel (11/30/2019 2:19 PM PDT) + + + + + + | Component | Value | Ref Range | Performed | Pathologist | | | | | At | Signature | + + + + + + | Na | 144 | 135 - 145 | REFERENCE | | | | | mmol/L | LAB | | | | | | [facility] | | | | | | LABORATORY | | + + + + + + | K | 3.8 | 3.5 - 4.9 | REFERENCE | | | | | mmol/L | LAB | | | | | | [facility] | | | | | | LABORATORY | | + + + + + + | Cl | 113 (H) | 99 - 109 mmol/L | REFERENCE | | | | | | LAB | | | | | | [facility] | | | | | | LABORATORY | | + + + + + + | CO2 | 24 | 23 - 32 mmol/L | REFERENCE | | | | | | LAB | | | | | | [facility] | | | | | | LABORATORY | | + + + + + + | Anion Gap | 11 | 5 - 20 mmol/L | REFERENCE | | | | | | LAB | | | | | | [facility] | | | | | | LABORATORY | | + + + + + + | Glucose | 95 | 65 - 99 mg/dL | REFERENCE | | | | | | LAB | | | | | | [facility] | | | | | | LABORATORY | | + + + + + + | BUN | 19 | 8 - 25 mg/dL | REFERENCE | | | | | | LAB | | | | | | [facility] | | | | | | LABORATORY | | + + + + + + | Creatinine | 1.00 | 0.50 - 1.00 | REFERENCE | | | | | mg/dL | LAB | | | | | | [facility] | | | | | | LABORATORY | | + + + + + + | BUN/Creatin | 19 | | REFERENCE | | | ine Ratio | | | LAB | | | | | | [facility] | | | | | | LABORATORY | | + + + + + + | Calcium | 9.0 | 8.5 - 10.5 | REFERENCE | | | | | mg/dL | LAB | | | | | | [facility] | | | | | | LABORATORY | | + + + + + + | Protein, | 6.0 (L) | 6.3 - 8.2 g/dL | REFERENCE | | | Total | | | LAB | | | | | | [facility] | | | | | | LABORATORY | | + + + + + + | Albumin | 3.1 (L) | 3.3 - 4.8 g/dL | REFERENCE | | | | | | LAB | | | | | | [facility] | | | | | | LABORATORY | | + + + + + + | Globulin | 2.9 | 1.3 - 4.9 g/dL | REFERENCE | | | | | | LAB | | | | | | [facility] | | | | | | LABORATORY | | + + + + + + | A/G Ratio | 1.1 | 1.0 - 2.4 | REFERENCE | | | | | | LAB | | | | | | [facility] | | | | | | LABORATORY | | + + + + + + | BILIRUBIN, | 0.3 | 0.1 - 1.5 mg/dL | REFERENCE | | | TOTAL | | | LAB | | | | | | [facility] | | | | | | LABORATORY | | + + + + + + | ALK PHOS | 54 | 35 - 115 U/L | REFERENCE | | | | | | LAB | | | | | | [facility] | | | | | | LABORATORY | | + + + + + + | AST | 13 | 10 - 45 U/L | REFERENCE | | | | | | LAB | | | | | | [facility] | | | | | | LABORATORY | | + + + + + + | ALT | 22 | 10 - 65 U/L | REFERENCE | | | | | | LAB | | | | | | [facility] | | | | | | LABORATORY | | + + + + + + | Estimated | 54 (L)Comment: GFR <60: | >60 | REFERENCE | | | GFR | CHRONIC KIDNEY DISEASE, | mL/min/1.73m2 | LAB | | | | IF FOUND OVER A 3 MONTH | | [facility] | | | | PERIOD.GFR <15: KIDNEY | | LABORATORY | | | | FAILURE.FOR | | | | | | AMERICANS, MULTIPLY THE | | | | | | CALCULATED GFR BY | | | | | | 1.210.This eGFR is | | | | | | calculated using the | | | | | | MDRD IDMS traceable | | | | | | equation.Testing | | | | | | performed at [facility];[address] | | | | | [facility] | | | | | | Blvd;[place] [address] | | | | | | | | | | + + + + + + + + | Specimen | + + | Blood | + + + + + + + | Performing | Address | City/State/Zipcode | Phone Number | | Organization | | | | + + + + + | REFERENCE LAB | [address] [facility] | [place], [place] | [phone] | | [facility] | Bl[address] | [address] | | | LABORATORY | | | | + + + + + | REFERENCE LAB | [address] [facility] | [place] | | | [facility] | Bl[address] | [address] | | | LABORATORY | | | | + + + + + C-Reactive Protein (11/30/2019 2:19 PM PDT) + + + + + + | Component | Value | Ref Range | Performed | Pathologist | | | | | At | Signature | + + + + + + | CRP | 1.1 (H)Comment: Testing | <0.5 mg/dL | REFERENCE | | | | performed at [facility];[address] | | LAB | | | | [place] | | [facility] | | | | [address];[place] [address] | | LABORATORY | | + + + + + + + + | Specimen | + + | Blood | + + + + + + + | Performing | Address | City/State/Zipcode | Phone Number | | Organization | | | | + + + + + | REFERENCE LAB | [address] [place] [address] | [place], [place] | [phone] | | [facility] | [address] | [address] | | | LABORATORY | | | | + + + + + | REFERENCE LAB | [address] [place] [address] | [place], [place] | | | [facility] | [address] | [address] | | | LABORATORY | | | | + + + + + Sedimentation Rate (11/30/2019 2:19 PM PDT) + + + + + + | Component | Value | Ref Range | Performed | Pathologist | | | | | At | Signature | + + + + + + | ESR | 37 (H)Comment: Testing | 0 - 30 mm/Hr | REFERENCE | | | | performed at [facility];[address] | | LAB | | | | [place] | | [facility] | | | | Blvd;[place] [address] | | LABORATORY | | + + + + + + + + | Specimen | + + | Blood | + + + + + + + | Performing | Address | City/State/Zipcode | Phone Number | | Organization | | | | + + + + + | REFERENCE LAB | [address] [place] [address] | [place], [place] | [phone] | | [facility] | Bl[address] | [address] | | | LABORATORY | | | | + + + + + | REFERENCE LAB | [address] [place] [address] | [place], [place] | | | [facility] | Blvd[address] | [address] | | | LABORATORY | | | | + + + + + documented in this encounter Visit Diagnoses + + | Diagnosis | + + | Rheumatoid arthritis, involving unspecified site, unspecified rheumatoid factor | | presence (HCC) | + + | High risk medication use Encounter for long-term (current) use of other medications | + + documented in this encounter"
--- OUTSIDE RECORDS SUMMARY | ~2019-12-28 | XMS | Encounter Summary ---
Demographics + + + | Address | [address] | | | [place] [address] | + + + | Home Phone | | + + + | Preferred Language | Unknown | + + + | Marital Status | | + + + | Caodaism Affiliation | Unknown | + + + [...] [place] | | | | | [address] | | + + + + + Care Team Providers + +------+ + | Care Sawyer Cork Slabs Name | Role | Phone | + [...] + + | 09/01/ | Office | [facility] | Gurmeet Vargas, | Tachypnea (Primary | | 2019 | Visit | PULMONARY [address] | Dx); Pneumonia of | | | | [address] [place], | [place] [address] | right lower lobe due | | | | [place] [address] | [phone] | to infectious | | | | [phone] | | organism; | | | | | | Immunosuppression [...] Gurmeet Vargas MD - 09/01/2018 3:20 PM [id number] ex-smoker being admitted from pulmonary clinic with tachypnea from right lower lobe pneumonia, immunosuppression with steroid and methotrexate, incidental pulmonary embolism on warfarin, and metastatic lung ca ncer being controlled with afatinib Today's visit was scheduled longer ago. We had no recent records, so requested Dr. Dennis ortega notes from [place]. Most recent was July, and there was a excellent summary of h er treatment to date. A CT scan apparently showed pulmonary embolism, and the stump of the right lower lobe, so she was begun on anticoagulation and transition to warfarin. However, she became ill in July, and also had bleeding, and was admitted for August 17 to arch 24 at [facility] in [place]. We've requested those notes and they were fax ed here. I also requested her imaging from that admission and we were able to see a CT scan of the abdomen and pelvis which included lower lung, and a chest x-ray from August 18. Cara boo's chest x-ray when compared to October 22, 2017 showed more density in the right lower lung fi eld and obliteration of the crisp outlines of blood vessels which were seen crisply in 2018. I learned from the patient and her training and development rep Mirza and the discharge summary from August 22, 2018 that she was treated for exacerbation of COPD and improved, primarily with Solu-Medrol and inhaled bronchodilators. She was discharged on tapering prednisone, but that did not w ork. So August for she saw her doctor and her prednisone was increased again to 40 mg, but T uesday, yesterday by the end of the day, she was feeling bad again, and quite tachypnea can feeling bad today. She received a brief course of antimicrobial therapy it seems before she was admitted August 17, 2018 to [facility] in [place]. In my view, the infiltrate seen today in the right lower lung field could be consistent wit h PCP, which would also be consistent with the raising and lowering of steroid doses. She also was producing sputum and so we collected expectorated sputum and sent it [facility] for PCP immunofluorescence, Gram stain, and routine [...] spent 45 minutes, at least half in topk-tx-[id number] counseling. Word processing was used and I apologize for mistakes. Gurmeet Vargas M.D. Pulmonary critical care documented in this encounter Plan of Treatment +--------+---------+ + + + | Date | Type | Specialty | Care Team | Description | +--------+---------+ + + + | 03/06/ | Office | Rheumatology | Santosh Sumner, | | | 2019 | Visit | | [address] [address] | | | | | | [facility] | | | | | | [place] [address] | | | | | | [phone] | | | | | | | [...] | + +---------+ + + Pneumocystis Jiroveci Ag, Immunofluorescent (09/01/2018 4:08 PM PDT) + + + [...] + + | Performed at: 01 - [facility] [place] [address], | REFERENCE LAB | | [place], [place] [id number] Dry Cleaning Machine Operator: Kodak Collins MD, Phone: | [facility] | | [phone] | | + + + + + + + + | Performing | Address | City/State/Zipcode | Phone Number | | Organization | | | | + + + + + | [facility] | [address] | [place], [place] | [phone] | | [facility] | [facility] | [address] | | + + + + + [...] [address] | [place] | [phone] | | [facility] | | [address] | | | - LABORATORY | | [...] right lower lobe due to infectious organism | + + | Immunosuppression due to drug therapy | + + | Metastatic lung cancer (metastasis from lung to other site), unspecified laterality | | (HCC) | + + documented in this encounter
--- OUTSIDE RECORDS SUMMARY | ~2019-12-28 | XMS | Encounter Summary ---
Demographics + + + | Address | [address] | | | [place] [address] | + + + | Home Phone | | + + + | Preferred Language | Unknown | + + + | Marital Status | | + + + | Nondenominational Affiliation | Unknown | + + + [...] [place] | | | | | [address] | | + + + + + Care Team Providers + +------+ + | Care Clay Dry Press Operator Name | Role | Phone | + +------+ + | Davis Ivan MD | PCP | | + +------+ + Encounter Details +--------+ + + + + | Date | Type | Department | Care Team | Description | +--------+ + + + + | 06/02/ | Hospital | [facility] | Conversion | Neck pain | | 2013 | Encounter | CONVERSION [address] | Transaction, | | | | | [place] [address] | Provider Unknown | | | | | [address] | [phone] | | | | | [address] | | | | | | [phone] | | | +--------+ + + + [...] | 2020 | Visit | | [address] | | | | | | [facility] | | | | | | [place] [address] | | | | | | [phone] | | | | | | | | +--------+---------+ + + + documented as of this encounter Procedures + +--------+ + + + | Procedure Name | Priori | Date/Time | Associated Diagnosis | Comments | | | ty | | | | + +--------+ + + + | MRI CERVICAL SPINE | Routin | 10/28/2012 | | Results for this | | WO CONTRAST | e | 1:41 PM | | procedure are in the | | | | PDT | | results section. | + +--------+ + + + documented in this encounter Results MRI Cervical Spine wo Contrast (10/28/2012 1:41 PM PDT) + + | Specimen | + + | | + + + + + | Narrative | Performed At | + + + | This is a non-reportable procedure without a radiologist report and | | | is used for image storage only | | + + + + + | Procedure Note | + + | Raoul Lockwood Conversion - 01/14/2019 11:10 AM PDT This is a non-reportable procedure | | without a radiologist report and isused for image storage only | + + documented in this encounter Visit Diagnoses + + | Diagnosis | + + | Neck pain Cervicalgia | + + documented in this encounter"
--- OUTSIDE RECORDS SUMMARY | ~2019-12-28 | XMS | Encounter Summary ---
Demographics + + + | Address | [address] | | | [place] [address] | + + + | Home Phone | | + + + | Preferred Language | Unknown | + + + | Marital Status | | + + + | Mu-Ism Affiliation | Unknown | + + + | Race | Unknown | + + + | Ethnic Group | Unknown | + + + Author + + + | Author | [facility] | | | and [place] | + + + | Organization | [facility] | | | and [...] [place] | | | | | [address] | | + + + + + Care Team Providers + +------+ + | Care Bleach Mixer Name | Role | Phone | + +------+ + | Caitlin Chino MD | PCP | | + +------+ + Reason for Visit + + + | Reason | Comments | + + + | Follow-up, Office | | | Visit | | + + + | Shoulder Pain | Left. Review MRI | + + + | New Patient | New Issue | + + + | Wrist Pain | Right | + + + Evaluate & Treat (Routine) +--------+--------+ + + + + | Status | Reason | Specialty | Diagnoses / | Referred By | Referred To | | | | | Procedures | Contact | Contact | +--------+--------+ + + + + | Closed | | Orthopedic | Diagnoses | Matti, | Randy, | | | | Surgery | Pain in | Caitlin Mccray MD | Giuliano Briones MD | | | | | right wrist | [address] | [address] | | | | | | [address] | [place], | | | | | | [place], | [place] [address] | | | | | | [place] [address] | Phone: | | | | | | Phone: | [phone] | | | | | | [phone] | Fax: | | | | | | Fax: | [phone] | | | | | | [phone] | | +--------+--------+ + + + + Encounter Details +--------+---------+ + + + | Date | Type | Department | Care Team | Description | +--------+---------+ + + + | 03/30/ | Office | [facility] | Rodney Worthy | Osteoarthritis of | | 2019 | Visit | ORTHOPEDIC SURGERY | MD [address] | right wrist, | | | | [address] | [address] | unspecified | | | | [place] | [place] [address] | osteoarthritis type | | | | [address] | [phone] | (Primary Dx); Right | | | | [phone] | | wrist pain; Chronic | | | | | | pain in left | | | | | | shoulder | +--------+---------+ + + + Social [...] | 66.5 kg (146 lb 9.7 | 03/30/2019 10:05 AM | | | | oz) | PDT | | + + + + + | Height | 157.5 cm (5' 2") | 03/30/2019 10:05 AM | | | | | PDT | | + + + + + | Body Mass Index | 26.81 | 03/30/2019 10:05 AM | | | | | PDT [...] + documented as of this encounter Progress Rodney Harvey MD - 03/30/2019 10:00 AM PDTFormatting of this note might be dif ferent from the original. [facility] RETURN CLINIC VISIT Pt. Name/Age/: Theatanesha Hernandez Mathew 73 y.o. 1945 Primary Care Physician: Caitlin Chino Chief Complaint/Reason for Visit: Follow-up, Office Visit; Shoulder Pain (Left. Review MRI); New Patient (New Issue); and Wri st Pain (Right) History of Present Illness: The patient is a pleasant 73 y.o. female who presents for a repeat visit for left shoulder pain. She reports that her left shoulder continues to bother her. She presents today for a n MRI review. There have been no interval changes. She still has difficulty with a lot of motion of the shoulder. She also presents today with right wrist pain. She states that this bothers her more at th is point than the left shoulder. She previously underwent a APL suspensionplasty with Dr. Guzman pacheco last year. This was done on 10/27/2017. She reports that her right wrist pain has be en increasing over time. She localizes this point to the area where the scaphoid touches th e distal radius. She also localizes it near the pisiform and near the carpal tunnel. She s tates that her pain is a 6 out of 10 at baseline and a 10 out of 10 at its worst. She does feel like it is getting worse. She quit smoking about 2 years ago. 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 Lewis, [place] Spinal stenosis has tried cortisone injections Spondylolisthesis of cervical region Sputum culture positive for Scopulariopsis species Squamous cell carcinoma of lung (HCC) 07/2013 right lower lobe Stroke (HCC) 2006 Stroke (HCC) 2007 left sided weakness Upper GI bleed 06/2014 admitted [facility] Wears dentures Past Surgical History: Procedure Laterality Date BACK SURGERY 03/2014 BLADDER SUSPENSION BRONCHOSCOPY 07/11/2014 EBUS with right hilar LN biopsy, [facility] Dr. Sierra CERVICAL SPINE SURGERY 2012 CHOLECYSTECTOMY COLONOSCOPY 06/2014 ENDOSCOPY FINGER TRIGGER RELEASE Left 12/14/2018 Procedure: Left Thumb Trigger Finger Release, Left Index Trigger Finger Release, Left Long Trigger Finger Release, Left Ring Trigger Finger Release; Surgeon: Giuliano Padilla MD; Lo cation: [facility] MAIN OR HAND ARTHROPLASTY Left 03/20/2015 Procedure: Left 1st C.M.C. Arthroplasty; Surgeon: Giuliano Padilla MD; Location: [facility] MAIN OR HAND ARTHROPLASTY Right 10/27/2017 Procedure: Right 1st CMC Arthroplasty; Surgeon: Giuliano Padilla MD; Location: [facility] MAIN O R HYSTERECTOMY LOBECTOMY 09/16/13 right lower lobe LUNG BIOPSY 07/21/13 right lower lobe SHOULDER SURGERY SHOULDER SURGERY right shoulder THUMB SURGERY TONGUE SURGERY benign per pt TUNNELED VENOUS PORT PLACEMENT N/A 07/28/2014 Procedure: Port Placement; Surgeon: Chalino Chiu MD; Location: [facility] MAIN OR Allergies: No Known Allergies Current [...] Supplies (NEBULIZER/TUBING/MOUTHPIECE) KIT Use as directed with [employer] ulizer machine. 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 Tobacco Use Smoking status: [...] on file Social History Narrative Lives: in [place] With: alone Grew up: in [place] Has previously lived in: [place] Exposure to toxic chemicals: no Exposure to asbestos: no Exposure to tuberculosis: no Has had a PPD or Quantiferon before: no Has pets at home: cat and a dog Has ever owned birds: yes, 5 years ago Other animal exposures: no Hobbies: used to jaja, crossword puzzles, walking her dog Review of Systems All of these are negative unless otherwise marked Musculoskeletal: [x] Physical handicaps [x] Back or shoulder pain [x]Rheumatoid disease [x] Osteoarthritis [x] Joint pain [x] Joint swelling []Gout [] Leg cramps at night Endocrine: [] Thyroid [] Diabetes Admission Weight: Weight: 66.5 [...] regular rate Ortho Exam Left Shoulder Exam Left Forward Flexion 110 Abduction 100 External Rotation 20 External Rotation Strength 5/5 Internal Rotation Strength [...] the thumb to the small fin casandra. Right wrist exam: Point tender over the junction between the radial styloid and the distal radius. Radial pul se 2+. Sensation intact to light touch in the first dorsal webspace, and the pads of the sma ll and index fingers. Able to flex and extend the thumb at the interphalangeal joint, make a n "ok" sign, adduct and abduct the fingers, and oppose the thumb to the small finger. Diagnostic Studies: Imaging MRI of the left shoulder dated 03/15/2019 reviewed. She does have an interstitial tear of the supraspinatus insertion. This appears to be less than 50% of the tendon thickness. The re is some cartilage change consistent with mild osteoarthritis per my read. No fractures o r dislocations. The radiologist read is not available for review today. 3 views of the right wrist obtained today demonstrate proximal migration of the first metac arpal. There is additionally arthritis between the tip of the radial styloid and the scapho id. Labs- Lab Results Component Value Date NA [...] INR 1.0 09/28/2018 Assessment and Plan: 1. Osteoarthritis of right wrist, unspecified osteoarthritis type triamcinolone acetonide (KENALOG-40) 40 mg/mL injection 20 mg 2. Right wrist pain XR Wrist Right 3 + Vw triamcinolone acetonide (KENALOG-40) 40 mg/mL injection 20 mg 3. Chronic pain in left shoulder The patient is a pleasant 73 y.o. female who presents for a repeat visit with left shoulder pain consistent with impingement and partial-thickness rotator cuff tear and right wrist os teoarthritis and pain. Treatment options were discussed with the patient including non-opera tive treatment modalities. Considering the nature of the patient's condition, decision was m niru to proceed with right wrist injection. We will plan on seeing if this helps. If it hannah s not, I think the best option may be for her to follow-up with 1 of the surgeons in the [facility] who deals more frequently with complex wrist injuries. She has proximal migration o f the first metacarpal. She may very well need something along the lines of a 4 corner fusi on with a radial styloidectomy she were to undergo surgery. She is also using a wrist brace which she had from before. It is a thumb spica brace and it does help significantly with h er pain. She also thought that it might be helpful for her to discuss increasing her methot rexate with doll wigs hackler. I think that is useful. Her pain seems to be relatively genera lized. There is no obvious surgical pathology for me to treat on the MRI that I think would account for a lot of her symptoms. We could certainly try a shoulder surgery but I am not certain that it would take care of the real issue. Risks, benefits and alternatives to injection were discussed with the patient. All of the p sasha's questions were answered regarding the procedure. Consent was obtained. The patient agreed to undergo an injection of the Right wrist. The area was prepared sterilely using Bet adine. A cold spray was used to numb the skin. 0.5 mLs of 1% lidocaine and 20 mg of kenalog were injected in the standard fashion. This was well tolerated by the patient. Follow-up: Return if symptoms worsen or fail to improve. with no x-ray Portions of this report were transcribed using voice recognition software. Every effort wa s made to ensure accuracy; however, inadvertent computerized scientist propagator errors may be pre sent. I appreciate the opportunity to help with the management of this patient. Rodney oWrthy MD documented in this encounter Plan of Treatment +--------+---------+ + + + | Date | Type | Specialty | Care Team | Description | +--------+---------+ + + + | 03/06/ | Office | Rheumatology | Santosh Sumner, | | | 2019 | Visit | | [address] | | | | | | [facility] | | | | | | [place] [address] | | | | | | [phone] | | | | | | | | +--------+---------+ + + + documented as of this encounter Results XR Wrist Right 3 [...] Diagnosis | + + | Osteoarthritis of right wrist, unspecified osteoarthritis type - Primary | + + | Right wrist pain Pain in joint, forearm | + + | Chronic pain in left shoulder Pain in joint, shoulder region | + + documented in this encounter Administered Medications + +--------+ +-------+------+ + | Medication Order | MAR | Action | Dose | Rate | Site | | | Action | Date | | | | + +--------+ +-------+------+ + | triamcinolone acetonide | Given | 10/30/20 | 20 mg | | Hand-Rig | | (KENALOG-40) 40 mg/mL injection | | 19 10:23 | | | ht | | 20 mg 20 mg, Intra-articular, | | AM PDT | | | | | ONCE, 03/30/19 at 1315, For 1 | | | | | | | dose, Shake well. Not for IV | | | | | | | use., | | | | | | + +--------+ +-------+------+ + +---+---+ | | | +---+---+ documented in this encounter
--- OUTSIDE RECORDS SUMMARY | ~2019-12-28 | XMS | Encounter Summary ---
Demographics + + + | Address | [address] | | | [place] [address] | + + + | Home Phone [...] [place] | | | | | [address] | | + + + + + Care Team Providers + +------+ + | Care Cut Out Press Operator Name | Role | Phone | + +------+ + | Caitlin Chino MD | PCP | | + +------+ + Encounter Details +--------+ + + + + | Date | Type | Department | Care Team | Description | +--------+ + + + + | 09/01/ | Orders Only | [facility] | Gurmeet Vargas, | Tachypnea | | 2019 | | PULMONARY [address] | | | | | [place], | [place] [address] | | | | | [place] [address] | [phone] | | | | | [phone] | | | +--------+ + + + [...] | 2019 | Visit | | [address] | | | | | | [facility] | | | | | | [place] [address] | | | | | | [phone] | | | | | | | | +--------+---------+ + + + documented as of this encounter Procedures + +--------+ + + + | Procedure Name | Priori | Date/Time | Associated Diagnosis | Comments | | | ty | | | | + +--------+ + + + | PNEUMOCYSTIS | STAT | 09/01/2018 | Tachypnea | Results for this | | KIRSTYI MIAN, | | 4:08 PM | | procedure are in the | | [facility] | | PDT | | results section. | + +--------+ + + + | CULTURE, | STAT | 09/01/2018 | Tachypnea | Results for this | | RESPIRATORY, LOWER, | | 3:55 PM | | procedure are in the | | SMEAR | | PDT | | results section. | + +--------+ + + + documented in this encounter Results Pneumocystis Donnaveci Jovita Johnson (09/01/2018 4:08 PM PDT) + + + [...] + | Performed at: 01 - [facility] [place] [address], | REFERENCE LAB | | [place], [place] [id number] Manager Valuation: Kodak Collins MD, Phone: | [facility] | | [phone] | | + + + + + + + + | Performing | Address | City/State/Zipcode | Phone Number | | Organization | | | | + + + + + | REFERENCE LAB | [address] | [place], [place] | [phone] | | [facility] | [place] | [address] | | + + + + + Culture, Respiratory, Lower, Smear (09/01/2018 3:55 PM PDT) + + + + + + | Component | Value | Ref Range | Performed | Pathologist | | | | | At | Signature | + + + + + + | Culture | 4+ Usual Respiratory | | [facility] | | | | Al[facility] | | [facility] | | | [...] | | Result | | | [facility] | | [...] [address] | [place] | [phone] | | [facility] | | [address] | | | - LABORATORY | | | | + + + + + documented in this encounter Visit Diagnoses + + | Diagnosis | + + | Tachypnea | + + documented in this encounter"
--- OUTSIDE RECORDS SUMMARY | ~2019-12-28 | XMS | Encounter Summary ---
Demographics + + + | Address | [address] | | | [place] [address] | + + + | Home Phone | | + + + | Preferred Language | Unknown | + + + | Marital Status | | + + + | Samaritan Affiliation | Unknown | + + + | Race | Unknown | + + + | Ethnic Group | Unknown | + + + Author + + + | Author | [facility] | | | and [place] | + + + | Organization | [facility] | | [...] [place] | | | | | [address] | | + + + + + Care Team Providers + +------+ + | Care Technical Sme Name | Role | Phone | + +------+ + | Caitlin Chino MD | PCP | | + +------+ + Encounter Details +--------+ + + + + | Date | Type | Department | Care Team | Description | +--------+ + + + + | 10/26/ | Orders Only | [facility] | Caitlin Chino V, | | | 2018 | | CONVERSION 888 | MD [address] | | | | | [address] | Way [place] | | | | | [facility] [place] | [address] | | | | | [address] | | | | | | [phone] | | | +--------+ + + + [...] | 2019 | Visit | | [address] | | | | | | [place] | | | | | | [place] [address] | | | | | | [phone] | | | | | | | | +--------+---------+ + + + documented as of this encounter Procedures + +--------+ + + + | Procedure Name | Priori | Date/Time | Associated Diagnosis | Comments | | | ty | | | | + +--------+ + + + | ECHO INTERPRETATION | Routin | 10/26/2018 | | Results for this | | OF OUTSIDE FILMS | e | 5:02 PM | | procedure are in the | | | | PDT | | results section. | + +--------+ + + + documented in this encounter Results ECHO Interpretation of Outside Films (10/26/2018 5:02 PM PDT) + + | Specimen | + + | | + + + + + | Impressions | Performed At | + + + | 1. This was a limited technically difficult study with suboptimal | | | views. 2. Overall left ventricular systolic function is grossly | | | normal with, an EF about 65 %. 3. The right ventricle is normal in | | | size and function. 4. No gross valve abnormalities on this limited | | | exam 5. Consider MUGA scans to monitor EF if patient is recieving | | | cardiotoxic chemotherapy. | | + + + + + + | Narrative | Performed At | + + + | Patient Name: Thea Carmona Date of : 1945 | | | Performing Physician: Anisha Lopez MD | | | | | | INDICATIONS Exertional Dyspnea, Lung cancer, | | | chemotherapy CONCLUSIONS 1. This was a limited | | | technically difficult study with suboptimal views. 2. Overall left | | | ventricular systolic function is grossly normal with, an EF about 65 | | | %. 3. The right ventricle is normal in size and function. 4. No gross | | | valve abnormalities on this limited exam 5. Consider MUGA scans to | | | monitor EF if patient is recieving cardiotoxic chemotherapy. | | | FINDINGS -------- ECG rhythm: Sinus rhythm. Study: A 2-dimensional | | | transthoracic echocardiogram with m-mode, spectral and color flow | | | Doppler was perfomed. Study: This was a technically difficult study | | | with suboptimal views. Study: This was a technically difficult study | | | with suboptimal apical views. Study: This was a technically difficult | | | study with suboptimal parasternal views. Left Ventricle: Overall | | | left ventricular systolic function is normal with, an EF about 65 %. | | | Left Ventricle: The left ventricle cavity size is normal. Left | | | Ventricle: There is mild concentric left ventricular hypertrophy. | | | Unable to determine diastolic function. Right Ventricle: The right | | | ventricle is normal in size and function. Left Atrium: The left | | | atrium is normal in size. Right Atrium: The right atrium was not well | | | visualized. Aortic Valve: The aortic valve was not well visualized. | | | Aortic Valve: There is no evidence of aortic stenosis. Mitral Valve: | | | Normal appearing mitral valve. Mitral Valve: No mitral | | | regurgitation. Tricuspid Valve: The tricuspid valve was not well | | | visualized. Unable to obtain TR signal to estimate pulmonary | | | pressures. Pulmonic Valve: The pulmonic valve was not well | | | visualized. IVC/Hepatic Veins: The IVC is small (<1.5cm) and | | | collapses with sniff, consistent with central venous pressures of | | | 0-5mmHg. Aorta: Aorta not well visualized. MEASUREMENTS | | | IVC: 1.28 cm LA Major: 4.30 cm EDV(Teich): | | | 71.83 ml IVSd: 1.23 cm LVIDd: 4.04 cm LVPWd: 1.17 cm LVOT | | | Diam: 2.12 cm %FS: 34.28 % EF(Teich): 63.84 % ESV(Teich): | | | 25.97 ml LVIDs: 2.65 cm SV(Teich): 45.85 ml RV Major: | | | 7.58 cm RV Minor: 3.28 cm RV Minor: 2.52 cm LVEF MOD A2C: | | | 66.90 % SV MOD A2C: 27.25 ml LVEF MOD A4C: 60.32 % SV MOD | | | A4C: 29.03 ml EF Biplane: 64.68 % LVEDV MOD BP: 45.73 ml | | | LVESV MOD BP: 16.15 ml LVEDV MOD A2C: 40.73 ml LVLd A2C: | | | 7.29 cm LVEDV MOD A4C: 48.13 ml LVLd A4C: 7.80 cm LVESV MOD | | | A2C: 13.47 ml LVLs A2C: 6.40 cm LVESV MOD A4C: 19.09 ml | | | LVLs A4C: 6.27 cm LAESV(A-L): 34.71 ml LAESV Index (A-L): | | | 20.30 ml/m2 LAAs A2C: 13.00 cm2 LAESV A-L A2C: 33.39 ml LAESV | | | MOD A2C: 31.06 ml LALs A2C: 4.29 cm LAAs A4C: 13.52 cm2 | | | LAESV A-L A4C: 34.38 ml LAESV MOD A4C: 32.42 ml LALs A4C: | | | 4.51 cm AV Env.Ti: 288.28 ms AV maxP.87 mmHg AV meanPG: | | | 5.93 mmHg AV Vmax: 1.64 m/s AV Vmean: 1.15 m/s AV VTI: | | | 33.33 cm LILIAN Vmax: 2.06 cm2 LILIAN (VTI): 2.23 cm2 AVAI Vmax: | | | 0.00 cm2/m2 AVAI (VTI): 0.00 cm2/m2 LVOT Env.Ti: 299.59 ms | | | LVOT maxP.68 mmHg LVOT meanP.16 mmHg LVSI Dopp: | | | 43.53 ml/m2 LVSV Dopp: 74.45 ml LVOT Vmax: 0.95 m/s LVOT | | | Vmean: 0.70 m/s LVOT VTI: 20.98 cm MV A Hiren: 0.75 m/s MV | | | Dec [place]: 2.82 m/s2 MV DecT: 228.26 ms MV E Hiren: 0.63 m/s | | | MV E/A Ratio: 0.84 E/E' Sept: 13.21 E' Lat: 0.05 m/s E' | | | Sept: 0.04 m/s RV S': 0.17 m/s Upholstery Tech: Authenticated | | | by: Anisha Lopez MD Report Date/Time: -- [id number]:26 | | + + + + + | Procedure Note | + + | Fabián, Rad Conversion - 01/20/2019 1:15 PM PDT Patient Name: Sujit Carmona | | : 1945 Performing Physician: Anisha Lopez | | MD INDICATIONS E | | xertional Dyspnea, Lung cancer, chemotherapy CONCLUSIONS 1. This was a limited | | technically difficult study with suboptimal views.2. Overall left ventricular systolic | | function is grossly normal with, an EF about 65 %.3. The right ventricle is normal in | | size and function. 4. No gross valve abnormalities on this limited exam 5. Consider MUGA | | scans to monitor EF if patient is recieving cardiotoxic chemotherapy. | | FINDINGS--------ECG rhythm: Sinus rhythm.Study: A 2-dimensional transthoracic | | echocardiogram with m-mode, spectral and color flow Doppler was perfomed.Study: This was | | a technically difficult study with suboptimal views.Study: This was a technically | | difficult study with suboptimal apical views.Study: This was a technically difficult | | study with suboptimal parasternal views.Left Ventricle: Overall left ventricular | | systolic function is normal with, an EF about 65 %.Left Ventricle: The left ventricle | | cavity size is normal.Left Ventricle: There is mild concentric left ventricular | | hypertrophy. Unable to determine diastolic function.Right Ventricle: The right ventricle | | is normal in size and function.Left Atrium: The left atrium is normal in size.Right | | Atrium: The right atrium was not well visualized.Aortic Valve: The aortic valve was not | | well visualized.Aortic Valve: There is no evidence of aortic stenosis.Mitral Valve: | | Normal appearing mitral valve.Mitral Valve: No mitral regurgitation.Tricuspid Valve: The | | tricuspid valve was not well visualized. Unable to obtain TR signal to estimate | | pulmonary pressures.Pulmonic Valve: The pulmonic valve was not well | | visualized.IVC/Hepatic Veins: The IVC is small (<1.5cm) and collapses with sniff, | | consistent with central venous pressures of 0-5mmHg.Aorta: Aorta not well visualized. | | MEASUREMENTS IVC: 1.28 cmLA Major: 4.30 cmEDV(Teich): 71.83 mlIVSd: | | 1.23 cmLVIDd: 4.04 cmLVPWd: 1.17 cmLVOT Diam: 2.12 cm%FS: 34.28 %EF(Teich): | | 63.84 %ESV(Teich): 25.97 mlLVIDs: 2.65 cmSV(Teich): 45.85 mlRV Major: 7.58 cmRV | | Minor: 3.28 cmRV Minor: 2.52 cmLVEF MOD A2C: 66.90 %SV MOD A2C: 27.25 mlLVEF MOD | | A4C: 60.32 %SV MOD A4C: 29.03 mlEF Biplane: 64.68 %LVEDV MOD BP: 45.73 mlLVESV | | MOD BP: 16.15 mlLVEDV MOD A2C: 40.73 mlLVLd A2C: 7.29 cmLVEDV MOD A4C: 48.13 | | mlLVLd A4C: 7.80 cmLVESV MOD A2C: 13.47 mlLVLs A2C: 6.40 cmLVESV MOD A4C: 19.09 | | mlLVLs A4C: 6.27 cmLAESV(A-L): 34.71 mlLAESV Index (A-L): 20.30 ml/m2LAAs A2C: | | 13.00 sn2LPRCI A-L A2C: 33.39 mlLAESV MOD A2C: 31.06 mlLALs A2C: 4.29 cmLAAs A4C: | | 13.52 [id number] A-L A4C: 34.38 mlLAESV MOD A4C: 32.42 mlLALs A4C: 4.51 cmAV | | Env.Ti: 288.28 msAV maxP.87 mmHgAV meanP.93 mmHgAV Vmax: 1.64 m/Susan | | Vmean: 1.15 m/Susan VTI: 33.33 cmAVA Vmax: 2.06 cm2AVA (VTI): 2.23 [id number] Vmax: | | 0.00 cm2/m2AVAI (VTI): 0.00 cm2/m2LVOT Env.Ti: 299.59 msLVOT maxP.68 mmHgLVOT | | meanP.16 mmHgLVSI Dopp: 43.53 ml/m2LVSV Dopp: 74.45 mlLVOT Vmax: 0.95 | | m/sLVOT Vmean: 0.70 m/sLVOT VTI: 20.98 cmMV A Hiren: 0.75 m/sMV Dec [place]: 2.82 | | m/s2MV DecT: 228.26 msMV E Hiren: 0.63 m/sMV E/A Ratio: 0.84E/E' Sept: 13.21E' | | Lat: 0.05 m/sE' Sept: 0.04 m/sRV S': 0.17 m/s Upholstery Tech:Authenticated by: | | Anisha Lopez [facility] Date/Time: -- [id number]:37:26 IMPRESSION: 1. This was a | | limited technically difficult study with suboptimal views.2. Overall left ventricular | | systolic function is grossly normal with, an EF about 65 %.3. The right ventricle is | | normal in size and function. 4. No gross valve abnormalities on this limited exam 5. | | Consider MUGA scans to monitor EF if patient is recieving cardiotoxic chemotherapy. | |LVIDd: 4.04 cm | |LVPWd: 1.17 cm | |LVOT Diam: 2.12 cm | |%FS: 34.28 % | |EF(Teich): 63.84 % | |ESV(Teich): 25.97 ml | |LVIDs: 2.65 cm | |SV(Teich): 45.85 ml | |RV Major: 7.58 cm | |RV Minor: 3.28 cm | |RV Minor: 2.52 cm | |LVEF MOD A2C: 66.90 % | |SV MOD A2C: 27.25 ml | |LVEF MOD A4C: 60.32 % | |SV MOD A4C: 29.03 ml | |EF Biplane: 64.68 % | |LVEDV MOD BP: 45.73 ml | |LVESV MOD BP: 16.15 ml | |LVEDV MOD A2C: 40.73 ml | |LVLd A2C: 7.29 cm | |LVEDV MOD A4C: 48.13 ml | |LVLd A4C: 7.80 cm | |LVESV MOD A2C: 13.47 ml | |LVLs A2C: 6.40 cm | |LVESV MOD A4C: 19.09 ml | |LVLs A4C: 6.27 cm | |LAESV(A-L): 34.71 ml | |LAESV Index (A-L): 20.30 ml/m2 | |LAAs A2C: 13.00 cm2 | |LAESV A-L A2C: 33.39 ml | |LAESV MOD A2C: 31.06 ml | |LALs A2C: 4.29 cm | |LAAs A4C: 13.52 cm2 | |LAESV A-L A4C: 34.38 ml | |LAESV MOD A4C: 32.42 ml | |LALs A4C: 4.51 cm | |AV Env.Ti: 288.28 ms | |AV maxP.87 mmHg | |AV meanP.93 mmHg | |AV Vmax: 1.64 m/s | |AV Vmean: 1.15 m/s | |AV VTI: 33.33 cm | |LILIAN Vmax: 2.06 cm2 | |LILIAN (VTI): 2.23 cm2 | |AVAI Vmax: 0.00 cm2/m2 | |AVAI (VTI): 0.00 cm2/m2 | |LVOT Env.Ti: 299.59 ms | |LVOT maxP.68 mmHg | |LVOT meanP.16 mmHg | |LVSI Dopp: 43.53 ml/m2 | |LVSV Dopp: 74.45 ml | |LVOT Vmax: 0.95 m/s | |LVOT Vmean: 0.70 m/s | |LVOT VTI: 20.98 cm | |MV A Hiren: 0.75 m/s | |MV Dec [place]: 2.82 m/s2 | |MV DecT: 228.26 ms | |MV E Hiren: 0.63 m/s | |MV E/A Ratio: 0.84 | |E/E' Sept: 13.21 | |E' Lat: 0.05 m/s | |E' Sept: 0.04 m/s | |RV S': 0.17 m/s | | | |Upholstery Tech: | |Authenticated by: Anisha Lopez MD | |Report Date/Time: -- 06_[id number]_5:37:26 | | | |IMPRESSION: | |1. This was a limited technically difficult study with suboptimal views. | |2. Overall left ventricular systolic function is grossly normal with, an EF about 65 %. | |3. The right ventricle is normal in size and function. 4. No gross valve abnormalities on t his limited exam 5. Consider MUGA scans to monitor EF if patient is recieving cardiotoxic ch emotherapy. | + + documented in this encounter Visit Diagnoses Not on filedocumented in this encounter"
--- OUTSIDE RECORDS SUMMARY | ~2019-12-28 | XMS | Encounter Summary ---
Demographics + + + | Address | [address] | | | [place] [address] | + + + | Home Phone [...] [place] | | | | | [address] | | + + + + + Care Team Providers + +------+ + | Care Prevention Specialist Name | Role | Phone | [...] + + | 10/27/ | Hospital | [facility] | Giuliano Padilla, | Osteoarthritis of | | 2018 | Encounter | MED [facility] OR [facility] | MD [address] | first | | | | [address] | [place], [place] | carpometacarpal | | | | [place], [place] | [address] | (CMC) joint of one | | | | [address] | | hand | | | | [phone] | | | +--------+ + + + [...] encounter H&P Notes Giuliano Padilla MD - 10/27/2017 10:07 AM PDTNo changes Plan right first cmc arthroplasty Giuliano Sky MD - 10/23/2017 7:46 AM PDTFormatting of this note might be di fferent from the original. [facility] HISTORY AND PHYSICAL EXAMINATION Pt. Name/Age/: Thea Carmona 72 y.o. 1945 Date of admission: (Not on file) Admitting Physician: Giuliano Padilla Primary Care Physician: Davis Ivan Chief Complaint/Reason for Visit: Right hand pain History of Present Illness: Patient with rheumatoid arthritis history but mostly osteoarthritic pattern of involvement in her hands is s/p left first cmc arthroplasty by me in 2014 and has done very well with th at. She has had progression in symptoms from bone on bone first cmc arthritis on the right a nd now presents for right hand first cmc arthoplasty. She denies any symptoms of carpal tunn el syndrome and no triggering of any digits. 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 Spinal stenosis has tried cortisone injections Spondylolisthesis of cervical region Sputum culture positive for Scopulariopsis species Squamous cell carcinoma of lung (HCC) 07/2013 right lower lobe Stroke ([facility]) 2006 Stroke ([facility]) 2007 Upper GI bleed 06/[address] [facility] Past Surgical History: Procedure Laterality Date BACK SURGERY 03/2014 BLADDER SUSPENSION BRONCHOSCOPY 07/11/2014 EBUS with right hilar LN biopsy, [facility] CERVICAL SPINE SURGERY 2012 CHOLECYSTECTOMY COLONOSCOPY 06/2014 ENDOSCOPY HAND ARTHROPLASTY Left 03/20/2015 Procedure: Left 1st C.M.C. Arthroplasty; Surgeon: Giuliano Padilla MD; Location: [facility] MAIN OR HYSTERECTOMY LOBECTOMY 09/16/13 right lower lobe LUNG BIOPSY 07/21/13 right lower lobe SHOULDER SURGERY SHOULDER SURGERY right shoulder THUMB SURGERY TONGUE SURGERY benign per pt TUNNELED VENOUS PORT PLACEMENT N/A 07/28/2014 Procedure: Port Placement; Surgeon: Chalino Chiu MD; Location: [facility] MAIN OR Allergies: No Known Allergies Current Medications: No current facility-administered medications for this encounter. Current Outpatient Prescriptions Medication Sig Dispense Refill afatinib (GILOTRIF) 30 mg tablet Take 30 mg by mouth every morning (before breakfast). albuterol-ipratropium (DUONEB) 2.5-0.5 mg/3 mL SOLN Take 3 mLs by nebulization 4 times daily. CASIE: 12 months Dx: J44.9 360 mL 3 amoxicillin-clavulanate (AUGMENTIN) 875-125 mg per tablet take 1 tablet by mouth every 12 hours for 10 days 0 BREO ELLIPTA 100-25 MCG/INH inhaler Inhale 1 puff into the lungs Daily. 0 cholecalciferol (VITAMIN D-3) 1,000 units capsule Take 2,000 Units by mouth Daily. clopidogrel (PLAVIX) 75 mg tablet Take 75 mg by mouth Daily. furosemide (LASIX) 20 mg tablet Take 20 mg by mouth Daily. 0 levothyroxine (SYNTHROID, LEVOTHROID) 125 mcg tablet Take 125 mcg by mouth every mornin g (before breakfast). 0 magic mouthwash Take 5 mLs by mouth every 4 hours as needed for Pain. (RECIPE = 1:1:1 m ixture of Maalox, diphenhydrAMINE, viscous lidocaine) 237 mL 0 MORPHINE SULFATE ER PO Take by mouth. PT CANNOT REMEMBER DOSE NARCAN 4 MG/0.1ML instill 1 spray in 1 NOSTRIL if needed for opioid overdose may re... (REFER TO PRESCRIPTION NOTES). 0 pantoprazole (PROTONIX) 40 mg tablet Take 40 mg by mouth 2 times daily (before meals). 0 potassium chloride (K-DUR) 20 mEq ER tablet 0 predniSONE (DELTASONE) 5 mg tablet take 2 tablets by mouth every morning 0 raNITIdine (ZANTAC) 300 MG tablet take 1 tablet by mouth twice a day 0 Respiratory Therapy Supplies (NEBULIZER COMPRESSOR) KIT Use as directed with nebulizer medication. Dx: J43.1 CASIE: 99 months 1 each 0 simvastatin (ZOCOR) 40 mg tablet Take 40 mg by mouth nightly. tiotropium (SPIRIVA) 18 mcg inhalation capsule Inhale 18 mcg into the lungs Daily. 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 Social History Main Topics Smoking status: Former Smoker Packs/day: 1.00 Years: 50.00 Types: Cigarettes Start date: 03/08/1952 Quit date: 07/24/2016 Smokeless tobacco: Never Used Alcohol use No Comment: pt states she was an alcoholic for 40 years but quit in 05/2012 Drug use: No Comment: marijuana in the remote past Sexual activity: Not on file Other Topics Concern Not on file Social History Narrative Lives: in [place] With: alone Grew up: in [place] Has previously lived in: [place] Exposure to toxic chemicals: no Exposure to asbestos: no Exposure to tuberculosis: no Has had a PPD or Quantiferon before: no Has pets at home: cat and a dog Has ever owned birds: yes, 5 years ago Other animal exposures: no Hobbies: used to jaja, crossword puzzles, walking her dog Review of Systems: ENT: no vision or hearing changes CARDIAC no chest pain or palpitations RESPIRATORY positive copd and recent community acquired pneumonia that she has resolved GASTROINTESTINAL no abdominal pain GENITOURINARY no dysuria NEURO neg PSYCH neg MUSCULOSKELETAL as above ENDOCRINE no diabetes HEMATOLOGIC not on blood thinners SKIN neg CONSTITUITIONAL/SYSTEMIC no fevers, chills or weight changes Vitals: BP 133/76 Pulse 77 Temp 36.9 C (98.5 F) (Temporal) Resp 20 Ht 1.575 m (5' 2") Wt 60.8 kg (134 lb) SpO2 95% BMI 24.51 kg/m BSA 1.63 m Physical Examination: General: Alert, oriented, no acute distress HEENT: Normocephalic, atraumatic Cardiovascular: Regular rate and rhythm, no murmurs Respiratory: Clear to auscultation bilaterally Abdomen: Soft, non-tender, non-distended, positive bowel sounds Extremities: Right hand with obvious tenderness and subluxation of first cmc joint Negative phalens sign Negative tinel over the carpal tunnel Positive heberdens nodes multiple IP joints No hyperextension thumb mp joint Sensation intact all digits xrays reviewed by me and show severe and advanced bone on bone osteoarthritis right first c mc joint Assessment and Plan: 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 10/27/17 Procedure in detail - after informed consent was obtained the patient was taken to the oper ating room and underwent general anesthesia. She received 1 g of Ancef IV prophylaxis. Aft er sterile prep and drape appropriate timeout and surgical safety checklist is completed, th e limb is exsanguinated and an upper arm tourniquet inflated to 250 mmHg. An incision is ma de longitudinally on the volar aspect of the first dorsal extensor compartment beginning at the radial styloid and continuing to just volar to the first metatarsal and the junction bet ween volar and dorsal skin. Blunt dissection is carried out and a branch of the superficial radial nerve is visualized directly acted. The first dorsal extensor compartment is releas ed under direct vision. The abductor pollicis longus tendon is retracted dorsally and disse cting distally from the extensor pollicis brevis. The radial artery is identified and disse cted free and retracted away from danger. Capsulotomy is carried out and subperiosteal diss ection around the trapezium is carried out. A spot check with C-arm fluoroscopy to ensure w e are in the correct bony interval. The trapezium is then sectioned with an osteotome and r emoved piecemeal with rongeurs and care to protect the FCR tendon. Once all of the bone fra gments are removed and the STT joint is inspected and no further debridement as needed. Aft er thorough irrigation a #2 Max braid suture is used to pass [id number] sutures through the FCR tendon as close to its attachment as I could manage and suturing to the abductor po llicis longus tendon also as close to its attachment as I could manage. With the thumb held in traction and abduction the suture was tied. This felt to be quite stable suspension maria sty. 4-0 Vicryl is used to pull tissue over the knot and then the wound is irrigated and cl osed with 4-0 nylon taking care to protect the superficial radial nerve. Sterile dressings are applied and we placed her in a thumb spica splint allowing freedom for the thumb IP join t. Prior to dressings and splint I injected 20 cc of 0.2% Naropin in the subcutaneous and d eeper tissues to help with postop analgesia. She left the operating room in stable conditio n with estimated blood loss less than 10 cc Giuliano Padilla M.D. docu mented in this encounter Plan of Treatment +--------+---------+ + + + | Date | Type | Specialty | Care Team | Description | +--------+---------+ + + + | 03/06/ | Office | Rheumatology | Santosh Sumner, | | | 2019 | Visit | | [address] | | | | | | [facility] | | | | | | [place] [address] | | | | | | [phone] | | | | | | | [...] | +---+--------+ documented in this encounter Results SHEFLAI Najera No Kiet (10/27/2017 11:14 AM PDT) + + | [...] | | CONTINUOUS, Starting 10/27/17 | | AM PDT | | | [...]
--- OUTSIDE RECORDS SUMMARY | ~2019-12-28 | XMS | Encounter Summary ---
Demographics + + + | Address | [address] | | | [place] [address] | + + + | Home Phone [...] [address] | | | | | [address] | | + + + + + Care Team Providers + +------+ + | Care Administrative Support Assistant Name | Role | Phone | + +------+ + PCP | Unavailable | + +------+ + Encounter Details +--------+ + + + + | Date | Type | Department | Care Team | Description | +--------+ + + + + | 01/13/ | Hospital | [facility] | Conversion | | | 2013 | Encounter | [facility] | Transaction, | | | | | [address] | Provider Unknown | | | | | [place], [place] | | | | | | [address] | (Fax) | | | | | [phone] | | | +--------+ + + + [...] | 2019 | Visit | | [address] | | | | | | [place] | | | | | | [place] [address] | | | | | | [phone] | | | | | | | | +--------+---------+ + + + documented as of this encounter Visit Diagnoses Not on filedocumented in this encounter"
--- OUTSIDE RECORDS SUMMARY | ~2019-12-28 | XMS | Encounter Summary ---
Demographics + + + | Address | [address] | | | [place] [address] | + + + | Home Phone [...] [address] | | | | | [address] | | + + + + + Care Team Providers + +------+ + | Care Filter Tank Tender Helper Head Name | Role | Phone | + +------+ + | Davis Ivan MD | PCP | | + +------+ + Reason for Visit + +--------+ + | Reason | Onset | Comments | | | Date | | + +--------+ + | Appointment | 01/29/ | | | | 2015 | | + +--------+ + Encounter Details +--------+ + + + + | Date | Type | Department | Care Team | Description | +--------+ + + + + | 01/29/ | Telephone | [facility] [place] | Offenstein, | Appointment | | 2015 | | PULMONARY [address] | Ayana Looney MD | | | | | [place], | | | | | | [place] [address] | | | | | | [phone] | | | +--------+ + + + [...] this encounter Miscellaneous Notes Telephone Encounter - Yadi Franklin - 01/30/2016 3:23 PM PDTI spoke with patient and in formed her that Dr. Archer is no longer coming and that she will need to follow with her [facility] provider or have them refer her to another pulmonary office. documented in this encounter Plan of Treatment +--------+---------+ + + + | Date | Type | Specialty | Care Team | Description | +--------+---------+ + + + | 03/06/ | Office | Rheumatology | Santosh Sumner, | | | 2019 | Visit | | [address] | | | | | | [place] | | | | | | [place] [address] | | | | | | [phone] | | | | | | | | +--------+---------+ + + + documented as of this encounter Visit Diagnoses Not on filedocumented in this encounter"
--- OUTSIDE RECORDS SUMMARY | ~2019-12-28 | XMS | Encounter Summary ---
Demographics + + + | Address | [address] | | | [place] [address] | + + + | Home Phone [...] [place] | | | | | [address] | | + + + + + Care Team Providers + +------+ + | Care Webbing Seamer Pound Net Name | Role | Phone | + [...] | | Pneumonia, | Offenstein, | [address] | | | | | unspecified | Ayana B, | [place], | | | | | organism | MD [address] | [place] [address] | | | | | Malignant | [address] | Phone: | | | | | neoplasm of | [place], | [phone] | | | | | unspecified | [place] [address] | Fax: | | | | | part of | | [phone] | | | | | right | [...] | | Pneumonia, | Offenstein, | [address] | | | | | unspecified | Ayana B, | [place], | | | | | organism | MD [address] | [place] [address] | | | | | Malignant | [address] | Phone: | | | | | neoplasm of | [place], | [phone] | | | | | unspecified | [place] [address] | Fax: | | | | | part of | | [phone] | | | | | right | [...] + + | 11/29/ | Hospital | [facility] | Offenstein, | Recurrent squamous | | 2016 | Encounter | [facility] [address] | Ayana Looney MD | cell carcinoma of | | | | [place], | | lung, right (HCC); | | | | [place] [address] | | Recurrent pneumonia | | | | [phone] | | | +--------+ + + + [...] | | m (DUONEB) 2.5-0.5 | daily. ACSIE: 12 | | | | | | mg/3 mL | months Dx: J44.9 | | | | | | SOLNIndications: | | | | | | | Chronic obstructive | | | | | | | pulmonary disease, | | | | | | | unspecified COPD | | | | | | | type ([facility]) | | | | | | + + + +---------+ + + | aspirin 81 MG | Take 81 mg by mouth | | 0 | | 06/08/201 | | tablet | Daily. | | [...] | 2019 | Visit | | AMANDA-Avila [address] | | | | | | [facility] | | | | | | [place] [address] | | | | | | [phone] | | | | | | | [...] On chemotherapy for recurrent cancer. COMPARISON: | . SOO | | Multiple priors. PROTOCOL: Axial images of the chest were | [facility] | | obtained. Coronal and sagittal [...] | + + + + + | [facility] | [address] | [place] | [phone] | | [facility] | | [address] | | | - IMAGING | | | | + + + + + documented in this encounter Visit Diagnoses + + | Diagnosis | + + | Recurrent squamous cell carcinoma of lung, right (HCC) | + + | Recurrent pneumonia Pneumonia, organism unspecified | + + documented in this encounter
--- OUTSIDE RECORDS SUMMARY | ~2019-12-28 | XMS | Encounter Summary ---
Demographics + + + | Address | [address] | | | [place] [address] | + + + | Home Phone | | + + + | Preferred Language | Unknown | + + + | Marital Status | | + + + | Episcopalian Affiliation | Unknown | + + + | Race | Unknown | + + + | Ethnic Group | Unknown | + + + Author + + + | Author | [facility] | | | and [place] | + + + | Organization | [facility] | | | [...] [place] | | | | | [address] | | + + + + + Care Team Providers + +------+ + | Care Marking Devices Assembler Name | Role | Phone | [...] + + | 08/15/ | Hospital | [facility] | Adelita Lu MD | Recurrent squamous | | 2015 | Encounter | [facility] | Need updated | cell carcinoma of | | | | [facility] [address] | address | lung, unspecified | | | | [address] | | laterality (HCC) | | | | [place] [address] | | (Primary Dx) | | | | [phone] | | | +--------+ + + + [...] + + + | Blood Pressure | 124/68 | 08/15/2014 10:08 AM | | | | | PDT | | + + + + + | Pulse | 71 | 08/15/2014 10:08 AM | | | | | PDT | | + + + + + | Temperature | 36.6 C (97.9 F) | 08/15/2014 10:08 AM | | | | | PDT | | + + + + + | Respiratory Rate | 20 | 08/15/2014 10:08 AM | | | | | PDT | | + + + + + | Oxygen Saturation | 94% | 08/15/2014 10:08 AM | | | | | PDT | | + + + + + | Inhaled Oxygen | - | - | | | Concentration | | | | + + + + + | Weight | 69 kg (152 lb 1.9 | 08/15/2014 10:08 AM | | | | oz) | PDT | | + + + + + | Height | 157.5 cm (5' 2.01") | 08/15/2014 10:08 AM | | | | | PDT | | + + + + + | Body Mass Index | 27.82 | 08/15/2014 10:08 AM | | | [...] encounter Progress Notes Adelita Lu MD - 08/15/2014 9:49 AM PDT Hem-Onc Progress Note [facility] Patient name:Thea Carmona : 1945 Age: 69 y.o. CSN: [id number] Date of Service: 08/15/2014 Identifying Statement: Thea Carmona is a 69 y.o. female from [facility] with clinical stage II, non-small [...] lewis 2.CT-guided biopsy by interventional radiology at [facility] of the right lung massshows squamous cell [...] by Dr. Beltran , thoracic surgeon at [facility] for consideration of broncho scopy, right [...] cell carcinoma Chief Complaint/HPI: Here for cycle #2 carboplatin and Taxol given concurrently with radiat ion for recurrence of lung cancer in the right hilar node REVIEW OF SYSTEMS Constitutional: Fatigue, "I don't have any." Denies high fevers, shaking chills, anorexia, nausea, vomiting, weight loss. Occasional night sweats. Appetite poor. "Its not very good ." States she still has to force herself eat, unless its a maple bar. Ear, Nose, Mouth, Throat: States she has a sore in side her mouth and in the corner of her left lip. No dysphagia, or tinnitus. Cardiovascular: Shortness of breath. States especially dyspnea on exertion with minimal act ivity. No chest pain, palpitations or orthopnea. States she was having a lot of panic attack s since she was unable to breath. However she states that the panic attacks are getting bett er. Respiratory: Constant productive thick white sputum noted. No hemoptysis. Gastrointestinal: Denies constipation, diarrhea, melena, or bright red blood per rectum. St ates she believes that there is something wrong in her abdomin. States it's sore underneath the midline abdominal incision from the surgery. Genitourinary: States she continues to feel like her bladder is not emptying out. Musculoskeletal: Intermittent generalized joint pain and tenderness. Neurologic: Occasional headaches. States the headaches are not lasting ever long. No Visual changes. No numbness/tingling of the extremities. Endocrine: Denies peripheral edema or heat/cold intolerance. Hematologic: Spontaneous bruising no bleeding. Bruising noted to forearms. Is taking blood thinners. Integumentary: Bruising noted to forearms bilaterally and throughout her torso. Is currentl y taking Prednisone. Pain: Intermittent ache to lower back and neck 3/10. Taking dilaudid for the pain. Note:Follow up appointment with Dr. Lu and labs. Four hour chemo treatment. Mrs. Carmona is in a wheelchair since she gets SOB with minimal activity. My chart:Declined Past Medical History: Past Medical History Diagnosis Date COPD (chronic obstructive pulmonary disease) ([facility]) on albuterol Spondylolisthesis of cervical region Spinal stenosis has tried cortisone injections Osteoporosis Depression Pneumonia 2009 hospitalized 5 days Rheumatoid arthritis(714.0) ([facility]) [facility] Hyperlipidemia on simvastatin Hypertension on clonidine and lisinopril Hypothyroidism GERD (gastroesophageal reflux disease) Stroke ([facility]) 2006 Stroke ([facility]) 2007 Squamous cell carcinoma of lung ([facility]) 07/2013 right lower lobe Sputum culture positive for Scopulariopsis species Recurrent squamous cell carcinoma of lung ([facility]) 07/11/[address] and RUL nodule [...] (97.9 F)] 36.6 C (97.9 F) Pulse: [71] 71 Resp: [20] 20 BP: (124)/(68) 124/68 mmHg Gen.: Performance status ECoG 1 . Well nourished, appears well not in apparent distress.. .. Chest: Inspiratory wheezes present Heart: S1-S2 regular rate Extremities: No edema Musculoskeletal: Patient is in a wheelchair today LABORATORY DATA: Recent Results (from the past 24 hour(s)) COMPREHENSIVE METABOLIC PANEL Result Value Range NA 141 136-149 mmol/L K 3.6 3.5-5.1 mmol/L CL 107 98-109 mmol/L CO2 27 24-31 mmol/L ANION GAP 7 3-16 mmol/L GLUCOSE 96 70-109 mg/dL BUN 15 7-18 mg/dL Creatinine, Serum/Plasma 0.79 0.60-1.30 mg/dL eGFR if not >60 >=60 mL/min/1.73m2 CALCIUM 8.6 8.3-10.5 mg/dL ALBUMIN 3.0 (*) 3.2-5.0 g/dL BILIRUBIN TOTAL 0.4 0.1-1.5 mg/dL Total protein 5.6 (*) 6.0-7.8 g/dL AST 23 10-42 U/L ALT 21 6-45 U/L ALK PHOS 59 40-110 U/L GLOBULIN 2.6 Albumin/Globulin ratio 1.2 BUN/CREA 19.0 CBC WITH DIFFERENTIAL Result Value Range WBC 6.9 4.0-11.0 K/uL RBC 3.88 3.70-5.20 M/uL Hgb 11.8 11.5-16.0 g/dL Hct 36.0 34.0-47.0 % MCV 92.8 83.0-101.0 fL MCH 30.5 28.0-35.0 pg MCHC 32.9 32.0-36.0 g/dL RDW 18.7 (*) <15.0 % Platelet Count 229 140-440 K/uL MPV 7.4 % Neutrophils 74.7 45.0-82.0 % % Lymphocytes 14.1 (*) 20.0-45.0 % % Monocytes 8.7 4.0-12.0 % % Eosinophils 1.5 0.0-5.0 % % Basophils 1.0 0.0-1.0 % Absolute Neutrophils 5.20 1.80-8.50 K/uL Absolute Lymphocytes 1.00 0.60-3.20 K/uL Absolute Monocytes 0.60 0.00-1.00 K/uL Absolute Eosinophils 0.10 0.00-0.40 K/uL Absolute Basophils 0.10 0.00-0.10 K/uL Imaging: PET/CT scan June 2014: [facility]: Necrotic right lung lesion wit h [...] on aspirin and Plavix PLAN: Continue cycle #2 carboplatin AUC 2 and Taxol 45 mg/m concurrent with radiation Patient says that she has symptoms of cold, cough and congestion which have not got better and started before initiation of chemotherapy around June 2014 She has already completed multiple rounds of antibiotics including Zithromax and Levaquin w hich have not improved her symptoms She was started on Symbicort [address] blandon Discussed her case with Dr. blandon and discussed differential diagnoses including the typical organisms including lewis/other fungus to explain the symptoms She does already taking omeprazole twice daily for GERD Discuss symptomed side effects related to chemotherapy which include but not limited to mye losuppression, risk of infections, alopecia, numbness and tingling in hands and feet, fatigu e. Encouraged about increased nutrition and hydration discussed risks versus benefit of continuing with chemotherapy .patient is interested in p ursuing with it. Total time face to face discussion with the patient and family was 30 minutes, more than 5 0% of the time was spent counseling and coordination of care. Adelita Lu MD Portions of this chart may have been created with [employer] voice recognition software. Occasi onal wrong-word or [...] | 2019 | Visit | | [address] | | | | | | [facility] | | | | | | [place] [address] | | | | | | [phone] | | | | | | | | +--------+---------+ + + + documented as of this encounter Visit Diagnoses + + | Diagnosis | + + | Recurrent squamous cell carcinoma of lung, unspecified laterality (HCC) - Primary | + + documented in this encounter
--- OUTSIDE RECORDS SUMMARY | ~2019-12-28 | XMS | Encounter Summary ---
Demographics + + + | Address | [address] | | | [place] [address] | + + + | Home Phone [...] [place] | | | | | [address] | | + + + + + Care Team Providers + +------+ + | Care Cvir Tech Name | Role | Phone | [...] Looney MD | | | | | [place], | | | | | | [place] [address] | | | | | | [phone] | | | +--------+--------+ + + + [...] | 2019 | Visit | | MINI [address] | | | | | | [place] | | | | | | [place] [address] | | | | | | [phone] | | | | | | | | +--------+---------+ + + + documented as of this encounter Visit Diagnoses Not on filedocumented in this encounter"
--- OUTSIDE RECORDS SUMMARY | ~2019-12-28 | XMS | Encounter Summary ---
Demographics + + + | Address | [address] | | | [place] [address] | + + + | Home Phone [...] [place] | | | | | [address] | | + + + + + Care Team Providers + +------+ + | Care Past Due Accounts Clerk Name | Role | Phone | + +------+ + | Davis Ivan MD | PCP | | + +------+ + Encounter Details +--------+ + + + + | Date | Type | Department | Care Team | Description | +--------+ + + + + | 08/15/ | Orders Only | [facility] [place] | Offenstein, | Cough (Primary Dx) | | 2014 | | PULMONARY [address] | Ayana Looney MD | | | | | [place], | | | | | | [place] [address] | | | | | | [phone] | | | +--------+ + + + [...] | 2019 | Visit | | PA-C [address] | | | | | | [facility] | | | | | | [place] [address] | | | | | | [phone] | | | | | | | | +--------+---------+ + + + documented as of this encounter Results XR Chest PA and Lateral (08/24/2014 9:58 AM PDT) + + | Specimen | + + | | + + + + + | Narrative | Performed At | + + + | TWO-VIEW CHEST: 08/24/2014 9:58 AM CLINICAL HISTORY: cough | [facility] | | COMPARISON: 07/28/2014 FINDINGS: Stable left internal jugular line | . [facility] | | with tip in the superior vena cava and reservoir over the left chest. | [facility] | | Stable mild cardiomegaly. Aorta and pulmonary vasculature are | - IMAGING | | normal. No upper mediastinal widening. Stable bulky appearance to | | | the right hilar region. Linear contour to the right heart border | | | suspicious for right middle lobe atelectatic change. Stable blunting | | | of the right costophrenic sulcus. No new areas of abnormal lung | | | density. Stable mild hyperinflation. Surgical clips in the right | | | hilar region. No effusion. Surgical clips right upper quadrant. | | | Cervical spine compression plate. No acute bony or upper abdominal | | | abnormality. IMPRESSION - 1. Stable central line position and | | | right hilar surgical changes. 2. Stable bulky appearance to the | | | right hilum and linear contour of the right heart border. Stable | | | emphysematous change. No acute abnormality. Dictated and Signed | | | by: Colin Leal MD Electronically signed: 08/24/2014 11:07 AM | | + + + + + | Procedure Note | + + | Fabián, Rad Results In - 08/24/2014 11:10 AM PDT TWO-VIEW CHEST: 08/24/2014 9:58 AM | | | | CLINICAL HISTORY: cough | | | | COMPARISON: 07/28/2014 | | | | FINDINGS: Stable left internal jugular line with tip in the superior vena cava | | and reservoir over the left chest. | | Stable mild cardiomegaly. Aorta and pulmonary vasculature are normal. No upper | | mediastinal widening. | | | | Stable bulky appearance to the right hilar region. Linear contour to the right | | heart border suspicious for right middle lobe atelectatic change. Stable | | blunting of the right costophrenic sulcus. | | | | No new areas of abnormal lung density. Stable mild hyperinflation. Surgical | | clips in the right hilar region. No effusion. | | | | Surgical clips right upper quadrant. Cervical spine compression plate. No acute | | bony or upper abdominal abnormality. | | | | IMPRESSION - | | 1. Stable central line position and right hilar surgical changes. | | | | 2. Stable bulky appearance to the right hilum and linear contour of the right | | heart border. Stable emphysematous change. No acute abnormality. | | | | Dictated and Signed by: Colin Leal MD | | Electronically signed: 08/24/2014 11:07 AM | + + + + + + + | Performing | Address | City/State/Zipcode | Phone Number | | Organization | | | | + + + + + | [facility] | [address] | [place] | [phone] | | [facility] | | [address] | | | - IMAGING | | | | + + + + + documented in this encounter Visit Diagnoses + + | Diagnosis | + + | Cough - Primary | + + documented in this encounter"
--- OUTSIDE RECORDS SUMMARY | ~2019-12-28 | XMS | Encounter Summary ---
Demographics + + + | Address | [address] | | | [place] [address] | + + + | Home Phone [...] [place] | | | | | [address] | | + + + + + Care Team Providers + +------+ + | Care Primary Care Provider Name | Role | Phone | + +------+ + | Davis Ivan MD | PCP | | + +------+ + Encounter Details +--------+ + + + + | Date | Type | Department | Care Team | Description | +--------+ + + + + | 11/11/ | Hospital | [facility] IP | Conversion | Pain | | 2013 | Encounter | CONVERSION [address]P [address] | Transaction, | | | | | [address] | Provider Unknown | | | | | [place] | [phone] | | | | | [address] | | | | | | [phone] | | | +--------+ + + + [...] | 2019 | Visit | | AMANDA-Avila [address] | | | | | | [facility] | | | | | | [place] [address] | | | | | | [phone] | | | | | | | [...]
--- OUTSIDE RECORDS SUMMARY | ~2019-12-28 | XMS | Encounter Summary ---
Demographics + + + | Address | [address] | | | [place] [address] | + + + | Home Phone [...] [place] | | | | | [address] | | + + + + + Care Team Providers + +------+ + | Care Nurse Coordinator Name | Role | Phone | [...] | | | [address] | [place] [address] | | | | | [place] [address] | | | | | | [phone] | | | +--------+ + + + [...] | 2019 | Visit | | AMANDA-Avila [address] | | | | | | [place] | | | | | | [place] [address] | | | | | | [phone] | | | | | | | [...] documented in this encounter Results XR Chest 1 Vw (08/18/2018 3:40 PM [...]
--- OUTSIDE RECORDS SUMMARY | ~2019-12-28 | XMS | Encounter Summary ---
Demographics + + + | Address | [address] | | | [place] [address] | + + + | Home Phone [...] [place] | | | | | [address] | | + + + + + Care Team Providers + +------+ + | Care Smash Piecer Name | Role | Phone | + [...] + + | 09/07/ | Office | [facility] | Offenstein, | Cough (Primary Dx); | | 2014 | Visit | PULMONARY [address] | Ayana Looney MD | Leg edema, left; | | | | [place], | | COPD (chronic | | | | [place] [address] | | obstructive | | | | [phone] | | pulmonary disease); | | | [...] eating. Have upper GI test done at [facility] to see if you are refluxing. Stay on the omeprazole and sucralfate. If the Mucinex helps, continue this. Have leg ultrasound today. documented in this encounter Progress Notes Offenstein, Ayana B, MD - 09/07/2014 2:02 PM PDTFormatting of [...] has a slight temperature yesterday when the [facility] nurse came by, she thinks in the [...] [facility]one and [facility] on simvastatin Hypertension on clonidine and [...] EBUS with right hilar LN biopsy, [facility] Dr. 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 Respiratory Therapy Supplies [facility] [...] kg (152 lb 3.2 oz) | B [place] 27.83 kg/m2 | SpO2 95% RA General [...] made to ensure accuracy; however, inadvertent computerized construction site manager errors may be pre sent. documented in t his encounter Plan of Treatment +--------+---------+ + + + | Date | Type | Specialty | Care Team | Description | +--------+---------+ + + + | 03/06/ | Office | Rheumatology | Santosh Sumner, | | | 2020 | Visit | | [facility] [address] | | | | | | [place] | | | | | | [place] [address] | | | | | | [phone] | | | | | | | | +--------+---------+ + + + +--------+---------+--------+ + + | [...] | Claudia's nurse 1604 p.m. by the life science technical officer. Dictated and | | | Signed by: [...] Dr. Ayana Taylor's nurse 1604 p.m. bythe life science technical officer.Dictated and Signed by: | | Matheus Kapadia [...] Taylor's nurse 1604 p.m. by | |the life science technical officer. | | | |Dictated and Signed by: Matheus Kapadia MD | | Electronically signed: 09/07/2014 4:43 PM | + + + + + + + | Performing | Address | City/State[facility] | Phone Number | | Organization | | | | + + + + + | [facility] | [address] | [place], [place] | [phone] | | [facility] | | [address] | | | - IMAGING | | [...]
--- OUTSIDE RECORDS SUMMARY | ~2019-12-28 | XMS | Encounter Summary ---
Demographics + + + | Address | [address] | | | [place] [address] | + + + | Home Phone [...] [place] | | | | | [address] | | + + + + + Care Team Providers + +------+ + | Care Silk Screen Printing Racker Name | Role | Phone | + [...] [place], | | | | | | [place] [address] | | | | | | [phone] | | | +--------+ + + + [...] | 2019 | Visit | | MINI [address] | | | | | | [place] | | | | | | [place] [address] | | | | | | [phone] | | | | | | | | +--------+---------+ + + + documented as of this encounter Visit Diagnoses Not on filedocumented in this encounter"
--- OUTSIDE RECORDS SUMMARY | ~2019-12-28 | XMS | Encounter Summary ---
Demographics + + + | Address | [address] | | | [place] [address] | + + + | Home Phone [...] [place] | | | | | [address] | | + + + + + Care Team Providers + +------+ + | Care Medical Language Specialist Name | Role | Phone | [...] | Radiology | Diagnoses | | [facility] | | | | | Bilateral | [place], | [address] | | | | | leg edema | Precious B, | [place], | | | | | Procedures | MD [address] | [place] | | | | | ECHO | [address] | [address] | | | | | Complete | [place], | Phone: | | | | | | [place] [address] | [phone] | | | | | | | Fax: | | | | | | | [phone] | +--------+--------+ + + + + Diagnostic/Screening (Routine) +--------+--------+ + + + + | Status | Reason | Specialty | Diagnoses / | Referred By | Referred To | | | | | Procedures | Contact | Contact | +--------+--------+ + + + + | Closed | | Radiology | Diagnoses | | [facility] [address] | | | | | Pneumonia, | [place], | [address] | | | | | unspecified | Precious B, | [place], | | | | | organism | MD [address] | [place] [address] | | | | | Malignant | [address] | Phone: | | | | | neoplasm of | [place], | [phone] | | | | | unspecified | [place] [address] | Fax: | | | | | part of | | [phone] | | | | | right | [...] Comments | +--------+ + | COPD | 2 month follow up | +--------+ + Encounter Details +--------+---------+ + + + | Date | Type | Department | Care Team | Description | +--------+---------+ + + + | 11/06/ | Office | [facility] | [place], | Chronic obstructive | | 2016 | Visit | PULMONARY [address] | Precious Looney MD | bronchitis with | | | | [address] [place], | | pulmonary emphysema | | | | [place] [address] | | (HCC) (Primary Dx); | | | | [phone] | | Recurrent pneumonia; | | | | | | Oropharyngeal | | | | | | dysphagia; Bilateral | | | | | | leg edema; | | | | | | Recurrent squamous | | | | | | cell carcinoma of | | | | | | lung, right ([facility]) | +--------+---------+ + + + Social History [...] + + + | Blood Pressure | 130/70 | 11/07/2015 1:05 PM | | | | | PDT | | + + + + + | Pulse | 72 | 11/07/2015 1:05 PM | | | | | PDT | | + + + + + | Temperature | - | - | | + + + + + | Respiratory Rate | - | - | | + + + + + | Oxygen Saturation | 96% | 11/07/2015 1:05 PM | | | | | PDT | | + + + + + | Inhaled Oxygen | - | - | | | Concentration | | | | + + + + + | Weight | 78.3 kg (172 lb 9.6 | 11/07/2015 1:05 PM | | | | oz) | PDT | | + + + + + | Height | 157.5 cm (5' 2") | 11/07/2015 1:05 PM | | | | | PDT | | + + + + + | Body Mass Index | 31.57 | 11/07/2015 1:05 PM | | | | | PDT | | + + + + + documented in this encounter Patient Instructions Patient Instructions Precious Taylor MD - 11/07/2015 2:07 PM PDTHave heart ultrasou nd, swallow study and chest CT. I will call with the results, and see if we can figure anything out. Work on making sure you get enough protein. Keep working on the reflux management as this could cause pneumonia as well. documented in this encounter Progress Notes Precious Taylor MD - 11/07/2015 1:11 PM PDTFormatting of this note might be differe nt from the original. Pulmonary Follow Up HPI Thea Carmona is a 70 y.o. female patient of Davis Ivan MD here today for follow up of COPD. At their last visit, we had given her doxycycline in September and a course of prednisone. She di d improve on this, but did not get completely better. They recall seeing Dr. Park, an d getting a higher dose of this, or a different antibiotic. She then had gotten worse. She w ent in to the ER at [facility] and was admitted. They had intended to keep her, but appar ently then ended up transferring her to [facility]. She was 100.8 on arrival in the emergenc y room at [facility]. She was treated with Zosyn and she improved. She was back in the emergency room on October 28. At that time, the notes state she had recen tly taken a course of Augmentin, which they think may have been given by Dr. Park. He r chest x-ray was read as a possible left sided consolidation. She was given a course of lev ofloxacin. In the ER at that time, she did not have a fever. Her next scan is going to be after her course of chemotherapy, and is going to be a PET sca n in about 2 months. She is currently on Gilotrif chemotherapy. She is currently on a regimen of Breo 200 mcg 1 inhalation daily and Duonebs 3-4 times massimo y. She is not having a lot of issues with her breathing. She returns today for routine foll ow up. She developed mouth issues from her chemotherapy and is taking magic mouthwash. She notes that the cough has been pretty good. She has been evaluated for nocturnal oxygen and does not need to use it. She notes occasionally she has trouble swallowing. She feels like things stay in her throat at times. She has heartburn daily. She is on 2 different heartburn medications. She is slee ping elevated. She drinks 2 cups of coffee daily. She has had progressive lower extremity edema. Past Medical History Past Medical History Diagnosis Date COPD (chronic obstructive pulmonary disease) ([facility]) on albuterol Spondylolisthesis of cervical region Spinal stenosis has tried cortisone injections Osteoporosis Depression Pneumonia 2008 hospitalized 5 days Rheumatoid arthritis(714.0) ([facility]) on prednisone and methotrexate, Dr. Lewis Clint Hyperlipidemia on simvastatin Hypertension on clonidine and lisinopril Hypothyroidism GERD (gastroesophageal reflux disease) Stroke ([facility]) 2007 Stroke ([facility]) 2007 Squamous cell carcinoma of lung (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) 07/11/[address] and RUL [...] 07/11/2014 EBUS with right hilar LN biopsy, [facility] Dr. Sierra Tunneled venous port placement N/A 07/28/2014 Procedure: Port Placement; Surgeon: Chalino Chiu MD; Location: [facility] OR Colonoscopy 06/2014 Endoscopy Hand arthroplasty Left 03/20/2015 Procedure: Left 1st C.M.C. 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 Social History Main Topics Smoking status: Former Smoker -- 1.00 packs/day for 50 years Types: Cigarettes Quit date: 08/21/2012 Smokeless tobacco: Never Used Alcohol Use: No Comment: pt states she was an alcoholic for 40 years but quit in 05/2012 Drug Use: No Comment: marijuana in the remote past Sexual Activity: Not on file Other Topics Concern None Social History Narrative Lives: in [place] With: alone Grew up: in [place] Has previously lived in: [place] Exposure to [...] Allergies Medications: Outpatient Encounter Prescriptions as of 11/07/2015 Medication Sig Dispense Refill albuterol 90 mcg/puff inhaler Inhale 2 puffs into the lungs every 6 hours as needed for Wheezing or Shortness of Breath. 1 Inhaler PRN albuterol-ipratropium (DUONEB) 2.5-0.5 mg/3 mL SOLN Take 3 mLs by nebulization 4 times daily. CASIE: 12 months Dx: J44.9 360 mL 11 aspirin 81 MG tablet Take 81 mg by mouth Daily. Blood Pressure Monitoring (BLOOD PRESSURE CUFF) [facility] Please provide patient with approp riate sized blood pressure cuff for 12.5" arm. Dx: Hypertension I10 CASIE: 99 months 1 each 0 cholecalciferol (VITAMIN D-3) 1,000 units capsule Take 1,000 Units by mouth Daily. cloNIDine (CATAPRES) 0.1 mg tablet Take by mouth Daily. clopidogrel (PLAVIX) 75 mg tablet Take 75 mg by mouth Daily. diazepam (VALIUM) 2 mg tablet nightly as needed. 0 diphenoxylate-atropine (LOMOTIL) 2.5-0.025 mg per tablet take 1 tablet by mouth AFTER E ACH LOOSE STOOL IF NEEDED FOR DIARHEA 0 ferrous sulfate (IRON) 28 MG TABS Take 28 mg by mouth Daily. Fexofenadine HCl (ETHAN ALLERGY PO) Take by mouth Daily. fluticasone-vilanterol (BREO ELLIPTA) 200-25 mcg/puff inhaler Inhale 1 puff into the dipti ngs Daily. 1 each 11 folic acid 1 mg tablet Take 1 mg by mouth Daily. GILOTRIF 40 MG tablet Take one tablet daily guaiFENesin (MUCINEX) 600 mg 12 hr tablet Take 1,200 mg by mouth as needed. HYDROcodone-acetaminophen (HYCET) 7.5-325 mg/15 mL liquid Take 15 mLs by mouth 4 times daily as needed for Pain. [DISCONTINUED] HYDROmorphone (DILAUDID) 4 MG tablet Take 8 mg by mouth every 6 hours as needed. HYDROmorphone (DILAUDID) 8 mg tablet Take one tablet every 6 hours as needed 0 [DISCONTINUED] levothyroxine (SYNTHROID) 100 mcg tablet Take 75 mcg by mouth every morn ing (before breakfast). levothyroxine (SYNTHROID, LEVOTHROID) 125 mcg tablet Take 125 mcg by mouth every mornin g (before breakfast). 0 LORazepam (ATIVAN) 1 mg tablet Take 1 mg by mouth every 6 hours as needed for Anxiety. magic mouthwash Take 5 mLs by mouth every 4 hours as needed for Pain. (RECIPE = 1:1:1 m ixture of Maalox, diphenhydrAMINE, viscous lidocaine) 237 mL 0 Magnesium 100 MG CAPS Take by mouth Daily. [DISCONTINUED] morphine (MS CONTIN) 30 mg ER tablet Take one tablet twice daily [DISCONTINUED] morphine (MSIR) 15 mg tablet take 1 tablet by mouth every 4 hours if nee ded for pain 0 [DISCONTINUED] omeprazole (PRILOSEC) 40 MG capsule Take 1 capsule by mouth every mornin g (before breakfast). 30 capsule 11 pantoprazole (PROTONIX) 40 mg tablet Take one tablet daily 0 ranitidine (ZANTAC) 150 mg tablet Take 1 tablet by mouth 2 times daily. 60 tablet 3 Respiratory Therapy Supplies (NEBULIZER COMPRESSOR) KIT Use as directed with nebulizer medication. Dx: J43.1 CASIE: 99 months 1 each 0 simvastatin (ZOCOR) 40 mg tablet Take 40 mg by mouth nightly. venlafaxine (EFFEXOR) 75 MG tablet Take 37.5 mg by mouth 2 times daily. No facility-administered encounter medications on file as of 11/07/2015. Review of Systems: General: []Weight loss/gain (over 10 lbs) [x]Fever/chills/sweats []Night sweats EENT: []Hearing loss []Vision loss/change []Sinus congestion/nasal drainage [x]Nosebleeds [ ]Hoarseness Cardiac: []Chest pain []Palpitations/heart racing []Swelling of legs/ankles []Waking up at night s hort of breath []Difficulty sleeping flat Gastrointestinal: []Nausea/vomiting [x]Difficulty swallowing [x]Heartburn/acid reflux [x]Loss of appetite [ ]Abdominal pain Urologic: []Blood in urine []Frequent urination at night []Burning/painful urination []Difficulty wit h urination Objective BP 130/70 mmHg | Pulse 72 | Ht 1.575 m (5' 2") | Wt 78.291 kg (172 lb 9.6 oz) | BMI 31.56 k g/m2 | SpO2 96% | ? No RA General Appearance: Alert, cooperative, no distress, appears stated age, in a wheelchair Head: Normocephalic, without obvious abnormality, atraumatic Eyes: PERRL, conjunctiva clear, no scleral icterus, EOM's intact Ears: Normal TM's, external auditory canals, normal acuity Nose: Nares normal, septum midline, mucosa normal Mouth: No oral lesions or exudate, edematous mucosa Neck: Supple, symmetrical, no adenopathy Lungs: No accessory muscle use, breath sounds are diminished bilaterally with prolongatio n of the expiratory phase, no wheezes, crackles or rhonchi Chest Wall: No deformity Heart: Regular rate and rhythm, no murmur, rub or gallop Abdomen: Soft, non-tender, non-distended Extremities: No cyanosis, clubbing, doughy bilateral lower extremity edema Pulses: Radial pulses 2+ and symmetric Skin: Warm and dry Lymph nodes: Cervical and supraclavicular nodes normal Data: Ref. Range 10/29/2015 18:30 10/29/2015 19:22 WBC Latest Ref Range: 4.0-11.0 K/uL 13.1 (H) RBC: Latest Ref Range: 3.70-5.20 M/uL 4.19 Hgb Latest Ref Range: 11.5-16.0 g/dL 12.1 Hct, Final Latest Ref Range: 34.0-47.0 % 38.5 MCV Latest Ref Range: 83.0-101.0 fL 91.9 MCH Latest Ref Range: 28.0-35.0 pg 29.0 MCHC Latest Ref Range: 32.0-36.0 g/dL 31.5 (L) RDW-CV Latest Ref Range: <15.0 % 16.2 (H) Platelet Count Latest Ref Range: 140-440 K/uL 203 MPV Latest Units: fL 7.6 Absolute Neutrophils Latest Ref Range: 1.80-8.50 K/uL 11.80 (H) Absolute Lymphocytes Latest Ref Range: 0.60-3.20 K/uL 0.60 Absolute Monocytes Latest Ref Range: 0.00-1.00 K/uL 0.70 Absolute Eosinophils Latest Ref Range: 0.00-0.40 K/uL 0.00 Absolute Basophils Latest Ref Range: 0.00-0.10 K/uL 0.00 % Neutrophils Latest Ref Range: 45.0-82.0 % 89.8 (H) % Lymphocytes Latest Ref Range: 20.0-45.0 % 4.8 (L) % Monocytes Latest Ref Range: 4.0-12.0 % 5.0 % Eosinophils Latest Ref Range: 0.0-5.0 % 0.2 % Basophils Latest Ref Range: 0.0-1.0 % 0.2 NA Latest Ref Range: 136-149 mmol/L 137 K Latest Ref Range: 3.5-5.1 mmol/L 3.6 Chloride Latest Ref Range: 98-109 mmol/L 105 Carbon dioxide Latest Ref Range: 24-31 mmol/L 26 ANION GAP Latest Ref Range: 3-16 mmol/L 6 GLUCOSE Latest Ref Range: 70-109 mg/dL 110 (H) BUN Latest Ref Range: 7-18 mg/dL 11 BUN/CREA Unknown 13.1 Creatinine Latest Ref Range: 0.60-1.30 mg/dL 0.84 ALBUMIN Latest Ref Range: 3.2-5.0 g/dL 2.6 (L) Albumin/Globulin ratio Latest Ref Range: 0.8-2.0 0.8 Total protein Latest Ref Range: 6.0-7.8 g/dL 5.8 (L) EGFR IF NOT Latest Ref Range: >=60 mL/min/1.73m2 >60 Calcium Latest Ref Range: 8.3-10.5 mg/dL 8.2 (L) ALK PHOS Latest Ref Range: 40-110 U/L 56 ALT (SGPT) (REF) Latest Ref Range: 6-45 U/L 20 AST (SGOT) (REF) Latest Ref Range: 10-42 U/L 17 BILIRUBIN TOTAL Latest Ref Range: 0.1-1.5 mg/dL 0.8 GLOBULIN Latest Ref Range: 2.1-3.8 g/dL 3.2 Chest x-rays were reviewed. On both, she has a patchy ground glass density on the right low er lung region. This seems new compared to her older chest x-ray. ER and hospital notes were reviewed in clinic today. Gilotrif: Adverse Reactions Significant >10%: Dermatologic: Acneiform eruption (90%; grade 3: 16%), paronychia (58%; grade 3: 11%), xerod sudarshan (31%), pruritus (21%), cheilitis (12%) Endocrine & metabolic: Weight loss (17%), hypokalemia (11%) Gastrointestinal: Diarrhea (96%; grade 3: 15%), stomatitis (71%; grade 3: 9%), decreased ap petite (29%), nausea (25%), vomiting (23%) Genitourinary: Cystitis (13%; grade 3: 1%) Hepatic: Increased serum ALT (11%; grades 3/4: 2%), increased serum AST (8%; grades 3/4: 2% ) Ophthalmic: Conjunctivitis (11%) Respiratory: Epistaxis (17%), rhinorrhea (11%) Miscellaneous: Fever (12%) 1% to 10%: Central nervous system: Fatigue (<2%) Dermatologic: Palmar-plantar erythrodysesthesia (7%) Ophthalmic: Keratitis (2%; grade 3: <1%) Renal: Renal insufficiency (6%; grade 3: >1%) Respiratory: Pneumonitis (>1%; descent: 2%), dyspnea (<2%) <1% (Limited to important or life-threatening): Pancreatitis, pneumonia, sepsis Immunization History Administered Date(s) Administered INFLUENZA, HIGH DOSE SEASONAL (ADULT) 03/02/2015 INFLUENZA, TRIVALENT PRESERVATIVE FREE (PED/ADOL/ADULT) 03/22/2013, 02/15/2014 PNEUMOCOCCAL CONJUGATE 13-VALENT (PCV13) 07/14/2014 PNEUMOCOCCAL POLYSACCHARIDE 23-VALENT (PPSV23) 03/01/2011 Assessment ICD-10-CM ICD-9-CM 1. 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) J44.9 491.20 On Symbicort and Duonebs, and this is not a current issues. 2. Recurrent pneumonia J18.9 486 This is based on a questionable chest x-ray and fever, tho ugh 12% of patients on Gilotrif get fever, so I am uncertain what that means. Her chest x-ray was the same both times, so she needs a CT scan, anjd also needs a swallow study as she does report dysphagia. It may be she is just refluxing, and Gilotrif is associa april with a lot of GI symptoms. CT Chest wo Contrast [place] Video Swallow w Speech 3. Oropharyngeal dysphagia R13.12 787.22 Notes she is occasionally having trouble swllowing foods such as rice as she cannot get them to clear. I suggested a swallow evaluation for fu rther evaluation. [place] Video Swallow w Speech 4. Bilateral leg edema R60.0 782.3 Progressive. Her protein stores are low, and I asked her to work on that. Her kidney function is normal, and liver function is as well. I suggested an echo to evaluate her cardiac function as this has not been looked at. ECHO Complete 5. Recurrent squamous cell carcinoma of lung, right (HCC) C34.91 162.9 On chemotherapy. Due for a PET scan in 2 months. Plan 1.Continue on Symbicort 160 mcg 2 puffs inhaled twice daily. 2.Continue Duonebs 3-4 times daily. 3.Check speech swallow evaluation. 4. Check echocardiogram. 5. Check chest CT scan. She was advised to call if new pulmonary symptoms were to develop. Return to clinic in 3 months, or sooner with concerns. CC: Davis Ivan MD Portions of this report were transcribed using voice recognition software. Every effort wa s made to ensure accuracy; however, inadvertent computerized silk screen printing racker errors may be pre sent. Electronically signed by: Precious Taylor MD documented in t his encounter Plan of Treatment +--------+---------+ + + + | Date | Type | Specialty | Care Team | Description | +--------+---------+ + + + | 03/06/ | Office | Rheumatology | Santosh Sumner, | | | 2020 | Visit | | [address] | | | | | | [facility] | | | | | | [place] [address] | | | | | | [phone] | | | | | | | | +--------+---------+ + + + documented as of this encounter Results [place] Video Swallow w [...] COMPARISON: ESOPHAGRAM SEPTEMBER 2014 TECHNIQUE: In the [facility] | | upright position, the patient was [...] | + + + + + | [facility] | [address] | [place] | [phone] | | [facility] | | [address] | | | - IMAGING | | | | + + + + + ECHO Complete (11/30/2015 10:34 AM PDT) + + | Specimen | + + | | + + + +- + | Narrative | Performed At | + +- + | [facility] | [facility] | | Echocardiography Report (TTE) Demographics Patient Name GRISELDA | [facility] | | [facility] Room Number YOLANDA Patient | [facility] | | Number [id number] Date of Study 11/30/2015 | - IMAGING | | Visit Number [id number] | | | Referring Physician OUSMANE PRECIOUS Number | | | B Date of | | | 1945 [employer] HOLLEY MARTE | | | | | | RDS Age 70 year(s) | | | Interpreting NOMAN HAIDER | | | Cleaner Window LUIS | | | | | | LUIS TINEO MD Gender Female Nurse | | | Procedure Type of Study TTE procedure: ECHO Complete. Procedure | | | dateDate: 11/30/2015Start: 10:07 AM Technical Quality: Poor | | | visualizationStudy Location: Echo LabIndications: Edema | | | 782.3/R60.0.Patient Status: RoutineHeight: 62 inchesWeight: 163 | | | poundsBSA: 1.75 m^2BMI: 29.81 kg/m^2Rhythm: Normal Sinus RhythmHR: 67 | | | bpm ConclusionsSummaryLeft ventricle is of grossly normal size and | | | systolic function with LVEFcalculated at 69%.Left atrium is poorly | | | visualized. Patient has suboptimal parasternal windowsgiven underlying | | | severe COPD and prior surgery for lung cancer.No obvious valvular | | | disease appreciated. | | | Signature | | | | | | PM | | | -------- FindingsMitral ValveStructurally normal mitral valve without | | | significant stenosis orregurgitation.Aortic ValveAortic valve is | | | trileaflet without significant stenosis or regurgitation.Tricuspid | | | ValveStructurally normal tricuspid valve without significant stenosis | | | orregurgitation.Pulmonic ValveNot well seen.Left AtriumLeft atrium is | | | poorly visualized. Patient has suboptimal parasternal windowsgiven | | | underlying severe COPD and prior surgery for lung cancer.Left | | | VentricleLeft ventricle is of grossly normal size and systolic | | | function with LVEFcalculated at 69%.There is grade 1 diastolic | | | dysfunction evident.Right AtriumNot well seen.Right VentricleNot | | | optimally visualized. It appears to be of grossly normal | | | size.Pericardial EffusionNo evidence of pericardial effusion. | | | MiscellaneousNormal aortic root.The IVC appears normal. Valves Mitral | | | Valve Peak E-Wave: 0.54 m/s Peak A-Wave: 0.64 m/s Tissue Doppler | | | Septal e' Velocity: 0.04 m/s Septal E/e' Ratio:14.47 Aortic Valve | | | Structures Left Atrium LA Vol/BSA Index: 15 mL/m^2 | | | LA Area: 10.57 cm^2 | | | LA Volume: 26.14 ml Left Ventricle | | | Diastolic Dimension: 3.59 cm Systolic Dimension: 2.24 cm | | | Septum Diastolic: 0.79 cm PW Diastolic: 0.73 cm EF Calculated: 69% | | | Miscellaneous Aorta Aortic Root: 2.98 cm | | | 11/30/2015 01:02 PM | | | | | | | | |Findings | | |Mitral Valve | | |Structurally normal mitral valve without significant stenosis or | | |regurgitation. | | |Aortic Valve | | |Aortic valve is trileaflet without significant stenosis or regurgitation. | | |Tricuspid Valve | | |Structurally normal tricuspid valve without significant stenosis or | | |regurgitation. | | |Pulmonic Valve | | |Not well seen. | | |Left Atrium | | |Left atrium is poorly visualized. Patient has suboptimal parasternal windows | | |given underlying severe COPD and prior surgery for lung cancer. | | |Left Ventricle | | |Left ventricle is of grossly normal size and systolic function with LVEF | | |calculated at 69%. | | |There is grade 1 diastolic dysfunction evident. | | |Right Atrium | | |Not well seen. | | |Right Ventricle | | |Not optimally visualized. It appears to be of grossly normal size. | | |Pericardial Effusion | | |No evidence of pericardial effusion. | | | | | |Miscellaneous | | |Normal aortic root. | | |The IVC appears normal. | | | | | |Valves | | | | | | Mitral Valve | | | | | | Peak E-Wave: 0.54 m/s | | | Peak A-Wave: 0.64 m/s | | | | | | Tissue Doppler | | | | | | Septal e' Velocity: 0.04 m/s | | | Septal E/e' Ratio:14.47 | | | | | | Aortic Valve | | | | | |Structures | | | | | | Left Atrium | | | | | | LA Vol/BSA Index: 15 mL/m^2 LA Area: 10.57 cm^2 | | | LA Volume: 26.14 ml | | | | | | Left Ventricle | | | | | | Diastolic Dimension: 3.59 cm Systolic Dimension: 2.24 cm | | | Septum Diastolic: 0.79 cm | | | PW Diastolic: 0.73 cm | | | EF Calculated: 69% | | | | | | Miscellaneous | | | | | | Aorta | | | | | | Aortic Root: 2.98 cm | | | | | + +- + + + | Procedure Note | + + | Fabián, Rad Results In - 11/30/2015 1:02 PM PDT Transthoracic Echocardiography Report | | (TTE) Demographics Patient Name GRISELDA MADSEN Room Number YOLANDA | | Patient Number [id number] Date of Study 11/30/2015 Visit Number | | [id number] Referring Physician OUSMANE LANG | | Number B Date of 1945 | | Casting Sorter HOLLEY MARTE | | RDS Age 70 year(s) Interpreting NOMAN HAIDER | | Cleaner Window LUIS | | LUIS TINEO MD Gender Female | | NurseProcedureType of Study TTE procedure: ECHO Complete.Procedure dateDate: | | 11/30/2015Start: 10:07 AMTechnical Quality: Poor visualizationStudy Location: Echo | | LabIndications: Edema 782.3/R60.0.Patient Status: RoutineHeight: 62 inchesWeight: 163 | | poundsBSA: 1.75 m^2BMI: 29.81 kg/m^2Rhythm: Normal Sinus RhythmHR: 67 | | bpmConclusionsSummaryLeft ventricle is of grossly normal size and systolic function with | | LVEFcalculated at 69%.Left atrium is poorly visualized. Patient has suboptimal | | parasternal windowsgiven underlying severe COPD and prior surgery for lung cancer.No | | obvious valvular disease | | appreciated.Signature | | --------- Electronically signed by LUIS TINEO MD(Interpreting physician) on | | 11/30/2015 01:02 | | PM FindingsMi | | tral ValveStructurally normal mitral valve without significant stenosis | | orregurgitation.Aortic ValveAortic valve is trileaflet without significant stenosis or | | regurgitation.Tricuspid ValveStructurally normal tricuspid valve without significant | | stenosis orregurgitation.Pulmonic ValveNot well seen.Left AtriumLeft atrium is poorly | | visualized. Patient has suboptimal parasternal windowsgiven underlying severe COPD and | | prior surgery for lung cancer.Left VentricleLeft ventricle is of grossly normal size and | | systolic function with LVEFcalculated at 69%.There is grade 1 diastolic dysfunction | | evident.Right AtriumNot well seen.Right VentricleNot optimally visualized. It appears to | | be of grossly normal size.Pericardial EffusionNo evidence of pericardial | | effusion.MiscellaneousNormal aortic root.The IVC appears normal.Valves Mitral Valve Peak | | E-Wave: 0.54 m/s Peak A-Wave: 0.64 m/s Tissue Doppler Septal e' Velocity: 0.04 m/s | | Septal E/e' Ratio:14.47 Aortic ValveStructures Left Atrium LA Vol/BSA Index: 15 mL/m^2 | | LA Area: 10.57 cm^2 LA | | Volume: 26.14 ml Left Ventricle Diastolic Dimension: 3.59 cm Systolic Dimension: | | 2.24 cm Septum Diastolic: 0.79 cm PW Diastolic: 0.73 cm EF Calculated: 69% | | Miscellaneous Aorta Aortic Root: 2.98 cm | | | |Conclusions | |Summary | |Left ventricle is of grossly normal size and systolic function with LVEF | |calculated at 69%. | |Left atrium is poorly visualized. Patient has suboptimal parasternal windows | |given underlying severe COPD and prior surgery for lung cancer. | |No obvious valvular disease appreciated. | | | |Signature | | | | Electronically signed by LUIS TINEO MD(Interpreting physician) on | | 11/30/2015 01:02 PM | | | | | |Findings | |Mitral Valve | |Structurally normal mitral valve without significant stenosis or | |regurgitation. | |Aortic Valve | |Aortic valve is trileaflet without significant stenosis or regurgitation. | |Tricuspid Valve | |Structurally normal tricuspid valve without significant stenosis or | |regurgitation. | |Pulmonic Valve | |Not well seen. | |Left Atrium | |Left atrium is poorly visualized. Patient has suboptimal parasternal windows | |given underlying severe COPD and prior surgery for lung cancer. | |Left Ventricle | |Left ventricle is of grossly normal size and systolic function with LVEF | |calculated at 69%. | |There is grade 1 diastolic dysfunction evident. | |Right Atrium | |Not well seen. | |Right Ventricle | |Not optimally visualized. It appears to be of grossly normal size. | |Pericardial Effusion | |No evidence of pericardial effusion. | | | |Miscellaneous | |Normal aortic root. | |The IVC appears normal. | | | |Valves | | | | Mitral Valve | | | | Peak E-Wave: 0.54 m/s | | Peak A-Wave: 0.64 m/s | | | | Tissue Doppler | | | | Septal e' Velocity: 0.04 m/s | | Septal E/e' Ratio:14.47 | | | | Aortic Valve | | | |Structures | | | | Left Atrium | | | | LA Vol/BSA Index: 15 mL/m^2 LA Area: 10.57 cm^2 | | LA Volume: 26.14 ml | | | | Left Ventricle | | | | Diastolic Dimension: 3.59 cm Systolic Dimension: 2.24 cm | | Septum Diastolic: 0.79 cm | | PW Diastolic: 0.73 cm | | EF Calculated: 69% | | | | Miscellaneous | | | | Aorta | | | | Aortic Root: 2.98 cm | + + + + + + + | Performing | Address | City/State/Zipcode | Phone Number | | Organization | | | | + + + + + | [facility] | [address] | [place] | [phone] | | [facility] | | [address] | | | - IMAGING | | | | + + + + + CT Chest wo Contrast (11/30/2015 9:25 AM [...] On chemotherapy for recurrent cancer. COMPARISON: | [facility] | | Multiple priors. PROTOCOL: Axial images [...] Mild emphysema. Dictated and Signed by: Matheus Dumont | | MD Kang Electronically signed: 12/01/2015 [...] | [facility] | [address] 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
--- OUTSIDE RECORDS SUMMARY | ~2019-12-28 | XMS | Encounter Summary ---
Demographics + + + | Address | [address] | | | [place] [address] | + + + | Home Phone [...] [place] | | | | | [address] | | + + + + + Care Team Providers + +------+ + | Care Rfp Writer Name | Role | Phone | [...] + + | 12/09/ | Office | [facility] [place] | Giuliano Padilla, | Pre-op testing | | 2019 | Visit | ORTHOPEDIC SURGERY | MD [address] | (Primary Dx); | | | | [address] | [place] | Trigger finger of | | | | [place] | [address] | left thumb; Trigger | | | | [address] | | middle finger of | | | | [phone] | | left hand; Trigger | | [...] Tdocumented in this encounter Plan of Treatment +--------+---------+ + + + | Date | Type | Specialty | Care Team | Description | +--------+---------+ + + + | 03/06/ | Office | Rheumatology | Santosh Sumner, | | | 2019 | Visit | | [address] | | | | | | [facility] | | | | | | [place] [address] | | | | | | [phone] | | | | | | | [...] 20 | 9 - 23 mg/dL | [facility] | | | | | | [facility] | | [facility] | [facility] | [facility] | | | | | | CENTER - | | | | | | LABORATORY | | + + + + + + | Creatinine | 1.08 (H) | 0.55 - 1.02 | [facility] | | | | | mg/dL | [facility] | | | | | | MEDICAL | | | | | | CENTER - | | | | | | LABORATORY | | + + + + + + | eGFR, | 50 (L)Comment: | >=60 | [facility] | | | non- | GLOMERULAR FILTRATION | mL/min/1.73m2 | [facility] | | | [place] | RATE,ESTIMATED | | MEDICAL | | | | mL/min/1.52p7Ovdu than | | CENTER - | | [...] | | ine Ratio | | | SOO | | | [...] ST. | [address] | [place], [place] | [phone] | | [facility] | | [address] | | | - LABORATORY | | [...]
--- OUTSIDE RECORDS SUMMARY | ~2019-12-28 | XMS | Encounter Summary ---
Demographics + + + | Address | [address] | | | [place] [address] | + + + | Home Phone [...] [place] | | | | | [address] | | + + + + + Care Team Providers + +------+ + | Care Cotton Ball Bagger Name | Role | Phone | + [...] | | | | | | | [place] REPAIR | | | | | | [...] | | | | | [address] | [address] [place] | | | | | [place], [place] | [place] [address] | | | | | [address] | [phone] | | | | | [phone] | | | +--------+ + + + [...] +----+---+ + + | | 1 | [place] | | | | 0 | 43-degrees [...] +----+---+ + + | | 1 | [place] off | | | | 1 | [...] 10/27/17 1400 by | | eral | [id number] catheter system; | Yenifer Shelton RN | [...] + + documented as of this encounter OR Notes Anesthesia Postprocedure Evaluation - Sarita Rankin II, MD - 10/27/2017 12:20 PM PDTF ormatting of this note might be different from the original. ANESTHESIA POSTANESTHESIA EVALUATION Thea Carmona 72 y.o. female 1945 [id number] Procedure(s) Right 1st CMC Arthroplasty (Right Hand) Cooperates? Yes Mental Status Performs simple tasks. Respiratory Satisfactory - Airway patent (self maintained). Cardiovascular Satisfactory - Blood pressure and heart rate acceptable Temperature Satisfactory Pain Satisfactory N/V Control Satisfactory Hydration Satisfactory - No signs of dehydration Complications None apparent Vitals: 10/27/17 1205 10/27/17 1210 10/27/17 1215 BP: 118/57 117/58 120/56 Pulse: 63 63 64 Temp: Resp: 21 22 24 SpO2: 99% 99% 99% Electronically signed by Sarita Rankin II, MD 10/27/2017 12:20 [facility] nesthesia Procedure Notes - Sarita Rankin II, MD - 10/28/19 10:30 AM PDTAssociated Order(s): ANE AIRWAY NOTEAnesthesia Airway Placement Preprocedure check: patient identified, oxygen, airway assessed, patient reassessment prior to induction, airway equipment checked and suction Rapid Sequence Induction: no Mask ventilation: easy Attempts: 1 Airway type: laryngeal mask Size: 3 Cuffed: cuffed Route, reference point: center of mouth Tube secured with: adhesive tape Trauma: none Tube placement verification: bilateral chest rise, equal bilateral breath sounds and carbon dioxide detection Performing provider: SARITA RANKIN II Electronically Signed by: Sarita Rankin II, MD ESig date/time : 10/27/2017 10:30 nesthesia Pre procedure Evaluation - Sarita Rankin II, MD - 10/27/2017 10:05 AM PDTFormatting of thi s note might be different from the original. ANESTHESIA PREANESTHESIA EVALUATION Thea Carmona 72 y.o. female 1945 [id number] Procedure(s): Right 1st CMC Arthroplasty (Right Hand) Medical history, anesthesia, medications, allergy, NPO status verified histories reviewed. Review of Systems / Med History Cardiovascular (+) hypertension (+) PVD: Pulmonary (+) shortness of breath, pneumonia, COPD(+) sleep apnea: Neurology (+) CVA, chronic pain Psychology (+) anxiety, depression Gastrointestinal/Hepatic (+) reflux/GERD, hyperlipidemia Endocrine (+) hypothyroidism (+) obesity: Other (+) arthritis Cancer (+) lung cancer Physical Exam Airway MP III, TM >3 FB, Mouth opening >2 FB. Neck: full ROM, extends >30 degrees. Dental ; (+) missing teeth, dentures-lower and dentures-upper. CV Rhythm regular. Rate normal. Anesthesia Plan ASA 3 Type: General. Induction: Intravenous. Potential problems: None anticipated. Monitors: Standard ASA monitors. Consent statement: . Consenting person understands and agrees to proceed. Electronically Signed by: Sarita Rankin II, MD ESig date/time: 10/27/2017 10:06 documented in this encounter Plan of Treatment +--------+---------+ + + + | Date | Type | Specialty | Care Team | Description | +--------+---------+ + + + | 03/06/ | Office | Rheumatology | Santosh Sumner, | | | 2019 | Visit | | [address] | | | | | | [facility] | | | | | | [place] [address] | | | | | | [phone] | | | | | | | [...] | | | | | | Starting [facility] 10/27/17 at 0343, For | | | [...] 10:18 | | | | | Starting [facility] 10/27/17 at 1018, | | AM PDT [...] Intravenous, PRN, Starting Tue | | 18 10:18 | | | [...]
--- OUTSIDE RECORDS SUMMARY | ~2019-12-28 | XMS | Encounter Summary ---
Demographics + + + | Address | [address] | | | [place] [address] | + + + | Home Phone [...] [place] | | | | | [address] | | + + + + + Care Team Providers + +------+ + | Care Editor In Chief Newspaper Name | Role | Phone | + +------+ + | Davis Ivan MD | PCP | | + +------+ + Encounter Details +--------+ + + + + | Date | Type | Department | Care Team | Description | +--------+ + + + + | 09/12/ | Orders Only | [facility] [place] | Offenstein, | Cough (Primary Dx) | | 2014 | | PULMONARY [address] | Ayana Looney MD | | | | | [place], | | | | | | [place] [address] | | | | | | [phone] | | | +--------+ + + + [...] | 2019 | Visit | | [address] | | | | | | [facility] | | | | | | [place] [address] | | | | | | [phone] | | | | | | | | +--------+---------+ + + + documented as of this encounter Visit Diagnoses + + | Diagnosis | + + | Cough - Primary | + + documented in this encounter"
--- OUTSIDE RECORDS SUMMARY | ~2019-12-28 | XMS | Encounter Summary ---
Demographics + + + | Address | [address] | | | [place] [address] | + + + | Home Phone [...] [place] | | | | | [address] | | + + + + + Care Team Providers + +------+ + | Care Concierge Manager Name | Role | Phone | [...] | +--------+ + + + + | 09/11/ | Hospital | [facility] | Adelita Lu MD | Recurrent squamous | | 2015 | Encounter | MED CTR CHEMO | Need updated | cell carcinoma of | | | | [address] | address | lung, right (HCC) | | | | [place], | | (Primary Dx) | | | | [place] [address] | | | | | | [phone] | | | +--------+ + + + [...] mouth | 118 mL | 0 | 09/09/19 | | | HYDROcodone-acetamin | 4 times [...] | 2019 | Visit | | [address] | | | | | | [place] | | | | | | [place] [address] | | | | | | [phone] | | | | | | | | +--------+---------+ + + + documented as of this encounter Visit Diagnoses + + | Diagnosis | + + | Recurrent squamous cell carcinoma of lung, right (HCC) - Primary | + + documented in this encounter"
--- OUTSIDE RECORDS SUMMARY | ~2019-12-28 | XMS | Encounter Summary ---
Demographics + + + | Address | [address] | | | [place] [address] | + + + | Home Phone [...] [place] | | | | | [address] | | + + + + + Care Team Providers + +------+ + | Care Furniture Mover Driver Name | Role | Phone | + +------+ + | Caitlin Chino MD | PCP | | + +------+ + Encounter Details +--------+ + + + + | Date | Type | Department | Care Team | Description | +--------+ + + + + | 12/20/ | Hospital | [facility] | Vivian, | No Show | | 2015 | Encounter | MED CTR CHEMO | Lokesh Gramajo MD [address] | | | | | [address] | [address] [place] | | | | | [place], | [address] [place] | | | | | [place] [address] | [address] | | | | | [phone] | | | +--------+ + + + [...] | 2019 | Visit | | [address] | | | | | | [facility] | | | | | | [place] [address] | | | | | | [phone] | | | | | | | | +--------+---------+ + + + documented as of this encounter Visit Diagnoses Not on filedocumented in this encounter"
--- OUTSIDE RECORDS SUMMARY | ~2019-12-28 | XMS | Encounter Summary ---
Demographics + + + | Address | [address] | | | [place] [address] | + + + | Home Phone [...] [place] | | | | | [address] | | + + + + + Care Team Providers + +------+ + | Care Film Waxer Name | Role | Phone | + +------+ + | Caitlin Chino MD | PCP | | + +------+ + Reason for Visit + + + | Reason | Comments | + + + | Pre-op Exam | left long, ring, and thumb trigger finger release dos 09/28/18 | + + + Encounter Details +--------+---------+ + + + | Date | Type | Department | Care Team | Description | +--------+---------+ + + + | 09/24/ | Office | [facility] [place] | Giuliano Padilla, | Trigger thumb of | | 2019 | Visit | ORTHOPEDIC SURGERY | [address] | left hand (Primary | | | | [address] [place] | [place] | Dx); Trigger finger, | | | | [place] | [address] | left index finger; | | | | [address] | | Trigger finger, left | | | | [phone] | | middle finger | +--------+---------+ + + + Social History [...] + + + | Blood Pressure | 135/61 | 09/24/2018 10:40 AM | | | | | PDT | | + + + + + | Pulse | 86 | 09/24/2018 10:40 AM | | | | | PDT | | + + + + + | Temperature | 36.9 C (98.4 F) | 09/24/2018 10:40 AM | | | | | PDT | | + + + + + | Respiratory Rate | 20 | 09/24/2018 10:40 AM | | | | | PDT | | + + + + + | Oxygen Saturation | 96% | 09/24/2018 10:40 AM | | | | | PDT | | + + + + + | Inhaled Oxygen | - | - | | | Concentration | | | | + + + + + | Weight | 72.6 kg (160 lb) | 09/24/2018 10:40 AM | | | | | PDT | | + + + + + | Height | 157.5 cm (5' 2") | 09/24/2018 10:40 AM | | | | | PDT | | + + + + + | Body Mass Index | 29.26 | 09/24/2018 10:40 AM | | | | | PDT [...] encounter Progress Notes Giuliano Padilla MD - 09/24/2018 10:45 AM PDTPatient returns for preop left hand thumb inde x and long trigger finger release Previously it had been left long and ring fingers She states the ring finger does not bother her anymore but the index finger does She has tenderness directly over the A1 samara and is not actively triggering in the office today but it has been We discussed the options and we changed the consent to left hand thumb index and long barrett er finger releases We again discussed the anesthetic options and she would like to have some IV sedation in ad dition to the local anesthetic Medications reviewed Surgery and reasonable expectations for recovery again outlined Questions answered in history and physical to follow documented in this encounter Plan of Treatment +--------+---------+ + + + | Date | Type | Specialty | Care Team | Description | +--------+---------+ + + + | 03/06/ | Office | Rheumatology | Santosh Sumner, | | | 2019 | Visit | | [address] | | | | | | [facility] | | | | | | [place] [address] | | | | | | [phone] | | | | | | | | +--------+---------+ + + + documented as of this encounter Visit Diagnoses + + | Diagnosis | + + | Trigger thumb of left hand - Primary Trigger finger (acquired) | + + | Trigger finger, left index finger | + + | Trigger finger, left middle finger | + + documented in this encounter
--- OUTSIDE RECORDS SUMMARY | ~2019-12-28 | XMS | Encounter Summary ---
Demographics + + + | Address | [address] | | | [place] [address] | + + + | Home Phone | | + + + | Preferred Language | Unknown | + + + | Marital Status | | + + + | Muslim Affiliation | Unknown | + + + [...] [place] | | | | | [address] | | + + + + + Care Team Providers + +------+ + | Care Engineering Clerk Name | Role | Phone | [...] | bronchitis with | | | | [facility], | [address] [place] | pulmonary emphysema | | | | [place] [address] | [place] [address] | (Primary Dx) | | | | [phone] | [phone] | | | | | | | [...] | 2019 | Visit | | [address] | | | | | | [facility] | | | | | | [place] [address] | | | | | | [phone] | | | | | | | | +--------+---------+ + + + documented as of this encounter Visit Diagnoses + + | Diagnosis | + + | 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
--- OUTSIDE RECORDS SUMMARY | ~2019-12-28 | XMS | Encounter Summary ---
Demographics + + + | Address | [address] | | | [place] [address] | + + + | Home Phone [...] [place] | | | | | [address] | | + + + + + Care Team Providers + +------+ + | Care Split Leather Mosser Name | Role | Phone | + +------+ + | Davis Ivan MD | PCP | | + +------+ + Encounter Details +--------+ + + + + | Date | Type | Department | Care Team | Description | +--------+ + + + + | 06/14/ | Hospital | [facility] | Conversion | Pain | | 2014 | Encounter | CONVERSION [address] | Transaction, | | | | | [address] | Provider Unknown | | | | | [place] | [phone] | | | | | [address] | | | | | | [phone] | | | +--------+ + + + [...] | 2019 | Visit | | [address] | | | | | | [facility] | | | | | | [place] [address] | | | | | | [phone] | | | | | | | | +--------+---------+ + + + documented as of this encounter Procedures + +--------+ + + + | Procedure Name | Priori | Date/Time | Associated Diagnosis | Comments | | | ty | | | | + +--------+ + + + | XR CERVICAL SPINE 6 | Routin | 10/22/2012 | | Results for this | | OR MORE VWS | e | 5:12 AM | | procedure are in the | | | | PDT | | results section. | + +--------+ + + + documented in this encounter Results XR Cervical Spine 6 or More Vws (10/22/2012 5:12 AM PDT) + + | Specimen | [...]
--- OUTSIDE RECORDS SUMMARY | ~2019-12-28 | XMS | Encounter Summary ---
Demographics + + + | Address | [address] | | | [place] [address] | + + + | Home Phone [...] [place] | | | | | [address] | | + + + + + Care Team Providers + +------+ + | Care Manager Advanced Name | Role | Phone | + +------+ + | Caitlin Chino MD | PCP | | + +------+ + Reason for Visit + + + | Reason | Comments | + + + | Follow-up | | + + + Follow Up (Routine) + +--------+ + + + + | Status | Reason | Specialty | Diagnoses / | Referred By | Referred To | | | | | Procedures | Contact | Contact | + +--------+ + + + + | Authorized | | Pulmonary | Diagnoses | Matti, | Eveline Castillo | | | | Disease / | COPD, | Caitlin Mccray MD | MD Raul | | | | Pulmonology | severe (HCC) | [address] | [address] | | | | | Procedures | Epi [place] | [facility] | | | | | F/U APPT | [place], | GREG ME | | | | | DR [address]ELINE [address]STILL[address] | [place] [address] | [address] Phone: | | | | | 06/16/19 | Phone: | [phone] | | | | | | [phone] | Fax: | | | | | | Fax: | [phone] | | | | | | [phone] | | + +--------+ + + + + Encounter Details +--------+---------+ + + + | Date | Type | Department | Care Team | Description | +--------+---------+ + + + | 06/16/ | Office | [facility] | Eveline Castillo | Chronic obstructive | | 2019 | Visit | PULMONARY [address] | MD Raul [address] | pulmonary disease, | | | | [place], | [address] [place] | unspecified COPD | | | | [place] [address] | [place] [address] | type ([facility]) (Primary | | | | [phone] | [phone] | Dx); Acute pulmonary | | | | | | embolism, | | | | | | unspecified | | | | | | pulmonary embolism | | | | | | type, unspecified | | | | | | whether acute cor | | | | | | pulmonale present | | | | | | ([facility]); Dyspnea on | | | | | | exertion | +--------+---------+ + + + Social History [...] + | Blood Pressure | 118/62 | 06/16/2019 1:44 PM | | | | | PST | | + + + + + | Pulse | 82 | 06/16/2019 1:44 PM | | | | | PST | | + + + + + | Temperature | 37.1 C (98.7 F) | 06/16/2019 1:44 PM | | | | | PST | | + + + + + | Respiratory Rate | - | - | | + + + + + | Oxygen Saturation | 92% | 06/16/2019 1:44 PM | RA | | | | PST | | + + + + + | Inhaled Oxygen | - | - | | | Concentration | | | | + + + + + | Weight | 64.4 kg (142 lb) | 06/16/2019 1:44 PM | | | | | PST | | + + + + + | Height | 157.5 cm (5' 2") | 06/16/2019 1:44 PM | | | | | PST | | + + + + + | Body Mass Index | 25.97 | 06/16/2019 1:44 PM | | | | | PST [...] documented as of this encounter Progress Notes Eveline Castillo MD - 06/16/2019 2:15 PM PST Subjective: Thea Carmona is a 74 y.o. 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 Patient last seen in pulmonary clinic 03/16/2019. She received records from Dr. Park's office. Per his last note available to me o n 02/08/2019, patient with locally recurrent and regionally metastatic right squamous cell dipti ng cancer under disease control on afatinib. In the interim, patient was admitted to [facility] in [place] for chest pain. Patient was found to have an acute pulmonary embolism and left upper lobe patchy cons olidation. Patient treated for community-acquired pneumonia. Of note, patient was off of Coumadin for a colonoscopy on 05/04/2019. Pulmonary embolism occurred while patient was off of Coumadin. Patient was discharged with supplemental O2 from the hospital. She reports that on repe at ambulatory testing at her primary care office, that she no longer needed supplemental oxy gen. Patient currently saturating 92% on room air. -At her last visit, patient started on nebulized regimen due to lack of benefit with her in haler regimen. She does Duoneb 3-4 times and budesonide once daily. Patient takes prednisone 5 mg twic e daily. - She is also on Roflumilast 500mcg. Prior to starting Roflumilast, she had 2 exacerbations per year. - Patient notices an improvement with nebulized therapy. She feels she is able to breathe d eeply. - She has SOB with exertion for about 20 feet. - Cough is productive of light green sputum. - she notes wheezing prior to doing her neb treatments. - No fever, chills, night sweats, weight loss. Patient's medications, allergies, past medical, surgical, social and family histories were obtained and reviewed as appropriate. Review of Systems Constitutional: Negative for chills and fever. HENT: Negative for congestion and postnasal drip. Eyes: Negative for pain and itching. Respiratory: See HPI Cardiovascular: Negative for chest pain and leg swelling. Gastrointestinal: Negative for abdominal pain, constipation and diarrhea. Endocrine: Negative for cold intolerance and heat intolerance. Genitourinary: Negative for difficulty urinating and dysuria. Musculoskeletal: Negative for arthralgias and back pain. Allergic/Immunologic: Negative for environmental allergies and food allergies. Neurological: Negative for dizziness and headaches. Psychiatric/Behavioral: Negative for agitation and behavioral problems. Objective: Vitals: 06/16/19 1344 BP: 118/62 Pulse: 82 Temp: 37.1 C (98.7 F) Physical Exam Constitutional: General: She is not in acute distress. Appearance: Normal appearance. She is not toxic-appearing. HENT: Head: Normocephalic and atraumatic. Right Ear: External ear normal. Left Ear: External ear normal. Nose: Nose normal. No congestion. Mouth/Throat: Mouth: Mucous membranes are moist. Pharynx: Oropharynx is clear. No oropharyngeal exudate. Eyes: Extraocular Movements: Extraocular movements intact. Conjunctiva/sclera: Conjunctivae normal. Pupils: Pupils are equal, round, and reactive to light. Neck: Musculoskeletal: Neck supple. No neck rigidity. Cardiovascular: Rate and Rhythm: Normal rate and regular rhythm. Heart sounds: Normal heart sounds. No murmur. No friction rub. No gallop. Pulmonary: Effort: Pulmonary effort is normal. No respiratory distress. Breath sounds: Wheezing (scattered expiratory wheeze) present. No rales. Abdominal: General: Abdomen is flat. Bowel sounds are normal. There is no distension. Palpations: Abdomen is soft. Tenderness: There is no tenderness. Musculoskeletal: Right lower leg: No edema. Left lower leg: No edema. Lymphadenopathy: Cervical: No cervical adenopathy. Skin: General: Skin is warm and dry. Neurological: General: No focal deficit present. Mental Status: She is alert and oriented to person, place, and time. Mental status is at baseline. Psychiatric: Mood and Affect: Mood normal. Behavior: Behavior normal. PFTs 06/16/2019 Spirometry is consistent with mild obstruction. A significant bronchodilator response is noted. Total lung capacity is within normal limits. Residual volume is normal. Diffusi on capacity is moderately reduced. Compared to pulmonary function test 02/07/2014, FEV1 decre ased by 25%, TLC decreased by 15%, DLCO decreased by 26%. Assessment & Plan: 1. Chronic obstructive pulmonary disease, unspecified COPD type ([facility]) 2. Acute pulmonary embolism, unspecified pulmonary embolism type, unspecified whether acute cor pulmonale present ([facility]) 3. Dyspnea on exertion COPD (FEV1 72%, DLCO 41%, gold 2, group D) - As noted above, PFTs have worsened since 2013. FEV1 decreased by 25%, TLC decreased by 15 %, DLCO decreased by 26%. Patient reports improvement in symptoms with nebulized therapy. Continue duo nebs 3-4 t imes daily, budesonide nebs twice daily. - Will change prescription for budesonide to be done twice daily. - Patient on prednisone 10 mg daily and Roflumilast. - Patient is on maximal therapy for COPD. Pulmonary embolism Patient with provoked PE in the setting of active malignancy. Patient was briefly off of warfarin for a colonoscopy. In the future, patient should have bridging of her warfarin to LMWH. Time off of antico agulation for procedures should be minimized. Lifelong anticoagulation is recommended. Dyspnea on exertion We will get recent CT images from [facility] from May 2019 ofelia szymanski. Review of imaging from 09/03/2018 shows that there is no evidence of interstitial lung dis ease related to RA. Worsening shortness of breath with exertion secondary to worsening COPD as seen by worse angel PFTs, underlying lung cancer with locally recurrent and regionally metastatic right squa mous cell lung cancer, deconditioning. See AVS for patient instructions. Diagnosis and plan including medications and side effects were discussed with the patient a nd information handout was given. Patient voices understanding of the plan and all questions were answered. Return in about 6 months (around 12/15/2019) for COPD. documented in this encounter Plan of Treatment +--------+---------+ + + + | Date | Type | Specialty | Care Team | Description | +--------+---------+ + + + | 03/06/ | Office | Rheumatology | Santosh Sumner, | | | 2019 | Visit | | [address] | | | | | | [facility] | | | | | | [place] [address] | | | | | | [phone] | | | | | | | | +--------+---------+ + + + documented as of this encounter Procedures + +--------+ + + + | Procedure Name | Priori | Date/Time | Associated Diagnosis | Comments | | | ty | | | | + +--------+ + + + | IMAGING REPORT - | | 05/05/2019 | | Results for this | | EXTERNAL SCAN | | 12:00 AM | | procedure are in the | | | | PST | | results section. | + +--------+ + + + | IMAGING REPORT - | | 05/05/2019 | | Results for this | | EXTERNAL SCAN | | 12:00 AM | | procedure are in the | | | | PST | | results section. | + +--------+ + + + documented in this encounter Results IMAGING REPORT - EXTERNAL SCAN (05/05/2019 12:00 AM PST) + + + | Narrative | Performed At | + + + | Ordered by an | | | unspecified provider. | | + + + IMAGING REPORT - EXTERNAL SCAN (05/05/2019 12:00 AM PST) + + + | Narrative | Performed At | + + + | Ordered by an | | | unspecified provider. | | + + + documented in this encounter Visit Diagnoses + + | Diagnosis | + + | Chronic obstructive pulmonary disease, unspecified COPD type ([facility]) - Primary | + + | Acute pulmonary embolism, unspecified pulmonary embolism type, unspecified whether | | acute cor pulmonale present (HCC) | + + | Dyspnea on exertion Other dyspnea and respiratory abnormality | + + documented in this encounter
--- OUTSIDE RECORDS SUMMARY | ~2019-12-28 | XMS | Encounter Summary ---
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 11/2014 NO FILMS PRIOR LT | | | CARPOMETACARPAL INTERPOSITIONAL ARTHROPLASTY ON 12/02/2011 W/DR | | | KARY *NFN* | + + + Evaluate & Treat (Routine) +--------+ + [...] Surgery | Thumb | Claudia, | Giuliano Briones MD | | | Required | | dislocation, | Ayana B, | [address] | | | | | unspecified | [address] | [place], | | | | | laterality, | [address] | [place] [address] | | | | | sequela | [place], | Phone: | | | | | | [place] [address] | [phone] | | | | | | | Fax: | | | | | | | [phone] | +--------+ + + + + + Encounter Details +--------+---------+ + + + | Date | Type | Department | Care Team | Description | +--------+---------+ + + + | 03/14/ | Office | [facility] | Offenstein, | Preop testing | | 2015 | Visit | ORTHOPEDIC SURGERY | Ayana Looney MD | (Primary Dx); Other | | | | [address] [place] | Giuliano Padilla MD | secondary | | | | [place] | [address] [place] | osteoarthritis of | | | | [address] | [place] [address] | first | | | | [phone] | [phone] | carpometacarpal | | | | | | joint of left hand | +--------+---------+ + + [...] + + + | Blood Pressure | 122/84 | 03/14/2015 1:20 PM | | | | | PDT | | + + + + + | Pulse | 98 | 03/14/2015 1:20 PM | | | | | PDT | | + + + + + | Temperature | 37.2 C (98.9 F) | 03/14/2015 1:20 PM | | | | | PDT | | + + + + + | Respiratory Rate | 24 | 03/14/2015 1:20 PM | | | | | PDT | | + + + + + | Oxygen Saturation | - | - | | + + + + + | Inhaled Oxygen | - | - | | | Concentration | | | | + + + + + | Weight | 71.2 kg (157 lb) | 03/14/2015 1:20 PM | | | | | PDT | | + + + + + | Height | 157.5 cm (5' 2") | 03/14/2015 1:20 PM | | | | | PDT | | + + + + + | Body Mass Index | 28.72 | 03/14/2015 1:20 PM | | | | | PDT | | + + + + + documented in this encounter Progress Notes Yulissa Obrien LPN - 03/14/2015 1:27 PM PDTFormatting of this note might be different fr om the original. History of present illness: Thea is a 69 y.o. female who presents with a chief complaint l eft thumb pain Patient had a left carpometacarpal prosthesis with trapezial excision by Dr. 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 Lewis Bessemer Hyperlipidemia on simvastatin Hypertension on clonidine and lisinopril Hypothyroidism GERD (gastroesophageal reflux disease) Stroke ([facility]) 2006 Stroke ([facility]) 2007 Squamous cell carcinoma of lung ([facility]) 07/2013 right lower lobe Sputum culture positive for Scopulariopsis species Recurrent squamous cell carcinoma of lung ([facility]) 07/11/[address] and [...] EBUS with right hilar LN biopsy, [facility] Dr. Sierra Tunneled venous port placement N/A 07/28/2014 Procedure: Port Placement; Surgeon: Chalino Chiu MD; Location: [facility] MAIN OR Colonoscopy 06/2014 Endoscopy No Known [...] daily. 60 tablet 3 Respiratory Therapy Supplies MISC ResMed S9 auto CPAP 5-9 cm H2O. 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 It may have not been p roofread in entirety. Minor errors in grammar may occur. documented in this en counter Plan of Treatment +--------+---------+ + + + | Date | Type | Specialty | Care Team | Description | +--------+---------+ + + + | 03/06/ | Office | Rheumatology | Santosh Sumner, | | | 2019 | Visit | | [address] | | | | | | [place] | | | | | | [place] [address] | | | | | | [phone] | | | | | | | | +--------+---------+ + + + documented as of this encounter Procedures + +--------+ + + + | Procedure Name | Priori | Date/Time | Associated Diagnosis | Comments | | | ty | | | | + +--------+ + + + | CBC WITH | Routin | 03/14/2015 | Preop testing | Results for this | | DIFFERENTIAL | e | 2:32 PM | | procedure are in the | | | | PDT | | results section. | + +--------+ + + + | BASIC METABOLIC | Routin | 03/14/2015 | Preop testing | Results for this | | PANEL | e | 2:32 PM | | procedure are in the | | | | PDT | | results section. | + +--------+ + + + documented in this encounter Results CBC with Differential (03/14/2015 2:32 PM PDT) + + + + + + | Component | Value | Ref Range | Performed | Pathologist | | | | | At | Signature | + + + + + + | White Blood | 13.4 (H) | 4.0 - 11.0 K/uL | [facility] | | | Cells | | | [facility] | | | | | [facility] | | | | | [facility] - | | | | | | LABORATORY | | + + + + + + | Red Blood | 3.81 | 3.70 - 5.20 | [facility] | | | Cells | | M/uL | [facility] | | | | | | [facility] | | | | | | [facility] - | | | | | | LABORATORY | | + + + + + + | Hemoglobin | 12.0 | 11.5 - 16.0 | [facility] | [...] + + + + | MCV | 98.5 | 83.0 - 101.0 fL | [facility] | | | | | | [facility] | | | [facility] | | [facility] | | | | | | [facility] - | | | | | | LABORATORY | | + + + + + + | MCH | 31.6 | 28.0 - 35.0 pg | [facility] | | | | | | [facility] | | | | | | [facility] | | | | | | [facility] - | | | | | | LABORATORY | | + + + + + + | MCHC | 32.1 | 32.0 - 36.0 | [facility] | | | | | g/dL | [facility] | | | | | | [facility] | | | | | | [facility] - | | | | | | LABORATORY | | + + + + + + | RDW-CV | 17.5 (H) | <15.0 % | [facility] | | | | | | [facility] | | | | | | [facility] | | | | | | [facility] - | | | | | | LABORATORY | | + + + + + + | Platelet | 279 | 140 - 440 K/uL | [facility] | | | Count | | | [facility] | | | | | | [facility] | | | | | | [facility] - | | | | | | LABORATORY | | + + + + + + | MPV | 7.2 | fL | [facility] | | | | | | [facility] | | | | | | [facility] | | | | | | [facility] - | | | | | | LABORATORY | | + + + + + + | % | 94.5 (H) | 45.0 - 82.0 % | [facility] | | | Neutrophils | | | [facility] | | | | | | [facility] | | | | | | [facility] - | | | | | | LABORATORY | | + + + + + + | % | 2.5 (L) | 20.0 - 45.0 % | [facility] | | | Lymphocytes | | | [facility] | | | | | | [facility] | | | | | | C[facility] - | | | | | | LABORATORY | | + + + + + + | % Monocytes | 2.4 (L) | 4.0 - 12.0 % | [facility] | | | | | | [facility] | | | | | | [facility] | | | | | | [facility] - | | | | | | LABORATORY | | + + + + + + | % | 0.3 | 0.0 - 5.0 % | [facility] | | | Eosinophils | | | [facility] | | [...] + + + + | Absolute | 12.60 (H) | 1.80 - 8.50 | [facility] | | | Neutrophils | | K/uL | [facility] | | | | | | [facility] | | | | | | [facility] - | | | | | | LABORATORY | | + + + + + + | Absolute | 0.30 (L) | 0.60 - 3.20 | [facility] [...] Specimen | + + | Blood - Right upper | | arm structure (body | | structure) | + + + + + + + | Performing | Address | City/State/Zipcode | Phone Number | | Organization | | | | + + + + + | [facility] | [address] | [place] | [phone] | | [facility] | | [address] | | | - LABORATORY | | | | + + + + + Basic Metabolic Panel (03/14/2015 2:32 PM PDT) + + + + + [...] | K | 3.8 | 3.5 - 5.1 | [facility] | [...] + + + + | Glucose | 104 | 70 - 109 mg/dL | [facility] | | | | | | [facility] | | | | | | [facility] | | | | | | CENTER - | | | | | | LABORATORY | | + + + + + + | BUN | 14 | 7 - 18 mg/dL | [facility] | | | | | | [facility] | | | | | | [facility] | | | | | | CENTER - | | | | | | LABORATORY | | + + + + + + | Creatinine | 0.87 | 0.60 - 1.30 | [facility] | | | | | mg/dL | [facility] | | | | | | [facility] | | | | | | CENTER - | | | | | | LABORATORY | | + + + + + + | eGFR, | >60Comment: GLOMERULAR | >=60 | [facility] | | | non- | FILTRATION | mL/min/1.73m2 | [facility] | | | [place] | RATE,ESTIMATED | | MEDICAL | | | | mL/min/1.34n9Ojsk than | | CENTER - | | [...] + + + + | BUN/Creatin | 16.1 | | [facility] | | | ine Ratio | | | [facility] | | | | | | [facility] | | | | | | CENTER - | | | | | | LABORATORY | | + + + + + + + + | Specimen | + + | Blood - Right upper | | arm structure (body | | structure) | + + + + + + + | Performing | Address | City/State/Zipcode | Phone Number | | Organization | | | | + + + + + | [facility] | [address] | [place] | [phone] | | [facility] | | [address] | | | - LABORATORY | | | | + + + + + documented in this encounter Visit Diagnoses + + | Diagnosis | + + | Preop testing - Primary Preoperative examination, unspecified | + + | Other secondary osteoarthritis of first carpometacarpal joint of left hand | + + documented in this encounter
--- OUTSIDE RECORDS SUMMARY | ~2019-12-28 | XMS | Encounter Summary ---
Demographics + + + | Address | [address] | | | [place] [address] | + + + | Home Phone [...] [place] | | | | | [address] | | + + + + + Care Team Providers + +------+ + | Care Electronic Resources Librarian Name | Role | Phone | + [...] Squamous | Jimmy C, DO | [address] | | | | | cell | [address] | [place], | | | | | carcinoma of | [address] | [place] [address] | | | | | lung, stage | [place], | Phone: | | | | | I, right | [place] [address] | [phone] | | | | | (HCC) | Phone: | Fax: | | | | | Procedures | [phone] | [phone] | | | | | CT Treatment | Fax: | | | | | | Plan | [phone] | | | | | | Complex [...] | | | | carcinoma of | [address] | [place] [address] | | | | | lung, right | [place], | Phone: | | | | | ([facility]) | [place] [address] | [phone] | | | | | | | Fax: | | | | | | | [phone] | +--------+ + + + + + Encounter Details +--------+ + + + + | Date | Type | Department | Care Team | Description | +--------+ + + + + | 07/25/ | Hospital | [facility] | Jimmy Banegas DO | 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 | Encounter | [facility] | [address] | carcinoma of lung, | | | | ONCOLOGY [address] | [place], [place] | stage I, right (HCC) | | | | [address] [place], | [address] | | | | | [place] [address] | | | | | | [phone] | | | +--------+ + + + [...] + + documented as of this encounter Consult Notes Jimmy Banegas DO - 07/25/2014 12:00 AM PSTPATIENT: Thea CarmonaDOMara:07/25/2014#: [id number] :1945 New Patient Evaluation/Consultation Note ICD-9/Diagnosis: 162.5 - Malignant neoplasm of lower lobe, bronchus or lung, Diagnosed 07/21/2013 (Active) CC: Davis Ivan M.D. Ayana Taylor M.D. Adelita Lu M.D. José Miguel Mace M.D. 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 This history was obtained thr ough direct interview, review of outside an old records to include a personal review of jigar ropriate imaging. I previously saw her in consultation on August 22, 2013-please refer to jorge boo prior consultation note for further details. She is a pleasant 69-year-old woman from [facility] who was previously being evaluated for a cervical spine surgery when imaging demonstrated a suspicious right lung nodule.She underwent a right lower lobe biopsy at [facility] on July 21, 2013 that demonstrated moderately differentiated squamous cell carcinoma. On August 11, 2013 she underwent a restaging PET/CT to confirm continued gr owth of the lesion measuring 3.1 x 2.1 cm with a maximum SUV of 6.26 with an additional cor relating right hilar lymph node measuring 0.9 cm with a maximum SUV of 4.46. She was overal l staged as stage IIa (T2a, N0, M0) moderately differentiated squamous carcinoma. More I of the brain performed September 02, 2013 was negative for intracranial metastatic disease. She underwent bronchoscopy with thorascopic right lower lobectomy on September 16, [address] Dread peres. Final pathology confirmed a 3.2 x 3.0 x 1.7 cm squamous cell carcinoma involving the r ight lower lobe that focally invaded the visceral pleura without involvement of the viscera l pleural surface. Surgical margins were negative and 10 lymph nodes were found negative f or jignesh metastatic disease. Overall, she was surgically and clinically staged as Ib(pT2a ,pN0,M0). She was reevaluated earlier this year at the [facility] due to an enlarging 1.0 cm cavitary right upper lobe nodule with a r ight necrotic appearing hilar lymph node. Review of imaging includes a diagnostic CT perfo rmed June 08, 2014 that demonstrated a 1.1 x 1.2 cm enlarging nodule previously mentioned . Restaging PET/CT performed June 21, 2014 confirmed avidity of the right hilar lymph n ode with an SUV max of 12.4 and the right upper lobe nodule with a maximum SUV of 2.7. MRI of the brain performed June 21, 2014 was negative for intracranial metastatic disease. She underwent bronchoscopy with EBUS with biopsy on July 11, 2014 demonstrating kerati nizing squamous cell carcinoma. 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 She denies any history of hemoptysis, but does have a productive and chronic cough. She jean es any unexplained fever or chills, appreciable weight loss but does have a lack of appetit e since learning of her new disease. Comparing her weight from one year ago she has lost a pproximately 2 kg. Today she asked very appropriate questions concerning her new primary d isease. Thea Mary Degrootley was seen today as a new patient evaluation at the request of Dr.Namr марина Lu for the evaluation and consideration of radiotherapeutic treatment in our clinic. Review of Systems: ROS ConstitutionalAbnormal - Complains of lack of appetite, night sweats, rigors / chills and change in weight. Denies fatigue, fever, lethargy and malaise.ROS Allergic/ImmunologicN ormal - Denies allergies and adverse reactions.ROS HeadNormal - Denies alopecia.ROS EyesAbn ormal - Complains of double vision. Denies blurred vision, lacrimation, night blindness, vi sual difficulties and photophobia.ROS ENMTAbnormal - Complains of dysphagia and mouth dryn ess. Denies ear pain, epistaxis, esophagitis, problems with hearing, oral bleeding, otitis, sinusitis, sputum production, altered taste and tinnitus.ROS NeckNormal - Denies neck mass es, muscle weakness, neck pain, decreased range of motion and swelling of the neck.ROS Inte gumentaryAbnormal - Complains of dry skin and nail changes. Denies alopecia, blistering, b ruising, photosensitivity, pruritus, rash and urticaria.ROS BreastsNormal - Denies breast m asses, nipple discharge, nipple inversion and pain.ROS CardiovascularNormal - Denies arrhyt hmias, chest pain, dyspnea, edema, orthopnea and palpitations.ROS RespiratoryAbnormal - Com plains of cough. Denies dyspnea, hemoptysis, hiccoughs, pleuritic chest pain and wheezing.R OS GastrointestinalNormal - Denies abdominal pain, change in bowel habits, constipation, d iarrhea, heartburn / dyspepsia, hematemesis, hematochezia, hemorrhoids, melena / GI bleedin g, nausea, pain / cramping, satiety and vomiting.ROS Genitourinary (F)Abnormal - Complains of dysuria and vaginal discharge / bleeding. Denies frequency, genital masses, hematuria, incontinence, nocturia, renal stone disease, problems with sexual function, urgency, urine color change and vaginal spotting.ROS MusculoskeletalNormal - Denies arthritis, bone pain, joint pain, muscle weakness and decreased range of motion.ROS NeurologicAbnormal - Complain s of memory loss and stroke. Denies disorientation, dizziness, abnormal gait, headaches, in somnia, motor weakness, sensory problems, paralysis and seizure.ROS PsychiatricNormal - Den ies delusions, hallucinations, mood swings, depression and euphoria.ROS Endocrine Abnormal - Complains of thyroid disease. Denies diabetes, hot flashes and menstrual irregularities. ROS Hematologic/LymphaticNormal - Denies easy bruising and tender or enlarged lymph nodes. Medications: Albuterol 2.5mg/3mL SOLUTION Take as Directed Aspirin 81 mg Clonidine 0.1 mg TABLET Take as Directed Diazepam 2mg TABLET Take as Directed Dilaudid 4mg TABLET Take as Directed Effexor 37.5 mg TABLET Take as Directed Folic Acid 1 mg TABLET Take as Directed Iron 27 mg TABLET Take as Directed Lisinopril 10 mg Magnesium 100 mg Methotrexate 2.5 mg Omeprazole 20 mg Plavix 75 mg Prednisone 5 mg TABLET Take as Directed Pro air INHALANT Take as Directed Simvastatin 40 mg Synthroid 75 mcg Vitamin D-3 1000 units Zanaflex 4 mg symbicort INHALATION b.i.d. Allergies: No Known Allergies Past Medical History: COPD, Depression, GERD, Hyperlipidemia, Hypertension, Hypothyroidism, Osteoporosis, Pneumo sabra, Rheumatoid Arthritis, Spinal stenosis, Spondylolisthesis of cervical region, Squamous cell carcinoma-Right lung on 07/21/2013 and Stroke. Past Surgical History: bladder suspension, bx to right lower lung on 07/21/2013, cervical spine surgery in 2012, cholecystectomy, hysterectomy in 1973, lumbar spine fusion, shoulder surgery, thumb surgery and tongue surgery-benign. Family History: Father has experienced Stomach Cancer. Brother has experienced Lung Cancer. niece with deshaun ast cancer Social History: Past smoker who quit for 1 year. 1 pack/day for 50 years (50 pack years). Past drinker who quit for 3 years. Patient indicated use of the following products: cigarettes and marijuan a. No exposure to toxic chemicals, asbestos, or TB. States she was an alcoholic for 40 year s, but quit 05/2012. Physical Exam: Performed on 07/25/2014, 13:25BMI 27.88 kg/m2 (HIGH) Height 158 cms Weight 69.6 kg Temperature 36.9 C Pulse 72 / min Respiration 20 / min BP108/62 mm(hg) O2 Sat 96 % Pain 0 PE ConstitutionalNormal - No evidence of impaired alertness, inadequate appearance, premat ure or advanced chronologic age, uncooperativeness, developmental delays, altered mood and affect and disorientation.PE Head Normal - No evidence of alopecia, abnormal cephalic and s cars.PE EyesNormal - No evidence of conjunctivitis and scleral abnormalities.PE ENMTNormal - No evidence of oral abnormalities, oropharynx obstruction and throat abnormalities.PE Ne ckNormal - No evidence of tender or enlarged lymph nodes and neck abnormalities.PE Integume ntaryAbnormal - Presents with mildly dry skin. No evidence of bruising, erythema, nails gladys nges, altered pigmentation, rash and urticaria.PE ChestAbnormal - No evidence of chest abno rmalities and tender or enlarged lymph nodes. There is a surgical scar that is appropriate for the previously mentioned thoracic surgery.PE CardiovascularNormal - No evidence of art erial pulse(s) abnormalities, abnormal heart rate and heart arrhythmia.PE RespiratoryNormal - No evidence of abnormal breath sounds, chest abnormalities on palpation and chest abnorm alities on percussion.PE AbdomenNormal - No evidence of abdominal abnormalities and abnorma l bowel sounds.PE ExtremitiesNormal - No evidence of lower extremities abnormalities and u pper extremities abnormalities.PE MusculoskeletalNormal - No evidence of bone abnormalities , joint abnormalities and compromised muscle tone.PE NeurologicNormal - No evidence of impa ired cranial nerve(s), uncoordinated gait and motor impairment.PE PsychiatricNormal - No ev idence of altered affect, lack of comprehension and disorientation.PE Hematologic/Lymphatic Normal - No evidence of tender or enlarged neck lymph nodes and petechiae / purpura / ecc hymosis. Questionnaires: Are you having pain? - Yes Where does it hurt most? - Lower back/right hip/neck Rate your pain from 0-10: 0-10 scale with 0 = no pain and 10= worst pain - 5 Describe your pain (quality) i.e. aching, sharp, stabbing, etc. - constant aching pain due to spinal stenosis What do you use for pain medication? Name and dose - Percocet 10/325 Tizanidine What is your numerical pain rating after taking pain medication? 0-10 scale with 0 = no pa in and 10= worst pain - 5 Labs: See EMR for complete list. Impression: 162.5 - Malignant neoplasm of lower lobe, bronchus or lung, Diagnosed 07/21/2013 (Active) S tage IIA, T2a, N1, M0. Recommendation/Plan: Impression: Metachronous stage II non-small cell lung cancer in the right lung and hilum. Stephanie Carmona is a 69-year-old woman who has previously been diagnosed with stage I non- small cell lung cancer with complicating medical issues. Ultimately, she underwent a right lower lobectomy with lymph node dissection. Serial surveillance has demonstrated a new righ t upper lobe primary with hilar lymphadenopathy that was biopsy-proven squamous cell carcin brendan. This appears to be a metachronous primary and she has previously been counseled regar ding repeat surgery and declines. NCCN guidelines were again reviewed. A recommendation for combined chemoradiotherapy with cisplatin based therapy was recommended today pending r eevaluation by Dr. Lu for medical oncology to follow my appointment today. Alternativel y, best supportive care with palliative care leading to hospice was also discussed; however , she wishes to pursue therapy at this time. Overall, she is a good candidate for combined modality therapy to treat her local regional non-small cell lung cancer. The risks, benefits, logistics, and techniques of external beam irradiation for the treatm ent of this condition were discussed in detail including the process of simulation and naren tment delivery. A detailed discussion regarding signs and symptoms of early(temporary) and late(permanent) side effects occurred next. Thea Carmona verbalized understanding of the treatment recommendation and wishes to proceed to simulation when appropriate. This will be arranged pending discussion with the referring physician and multidisciplinary te am to complete labs and initial workup as necessary. The information found at [email or web address] was advised for further information specific to radiation therapy. Thea Carmona was encouraged to call our clinic with any [facility] questions or concerns. Thank you for allowing me to participate in the care of Thea Carmona. If you shou ld have any questions regarding this evaluation, please do not hesitate to contact me. Jimmy Banegas D.O., [facility] Radiation Oncologist Department of Radiation Oncology [facility] This note was transcribed using [employer] speech recognition software. As a result, there ma y be unintended for medical and/or spelling errors. Every attempt is made to correct dicta tion. If there are any questions or errors please contact our office. Page 1 of 3 CSN: [id number] signed by Jimmy Banegas DO at 07/28/2014 3:39 PM Carisa chen in this encounter Plan of Treatment +--------+---------+ + + + | Date | Type | Specialty | Care Team | Description | +--------+---------+ + + + | 03/06/ | Office | Rheumatology | Santosh Sumner, | | | 2019 | Visit | | [address] | | | | | | [facility] | | | | | | [place] [address] | | | | | | [phone] | | | | | | | [...] | | | | | mg/dL | [facility] | | | | | | MEDICAL | | | | | | CENTER - | | | | | | LABORATORY | | + +-------+ + + + | eGFR, | >60 | >=60 | [facility] | | | non- | | mL/min/1.73m2 | [facility] | | | [place] | | | MEDICAL | | | [...] + | [facility] | [address] | [place] | [phone] | | [facility] | | [address] | | | - LABORATORY | | | | + + + + + | [facility] | [address] | [place], [place] | | | [facility] | | [address], [facility] | | | - LABORATORY | | | | + + + + + BUN (07/25/2014 3:34 PM PST) + +-------+ + + + | Component | Value | Ref Range | Performed | Pathologist | | | | | At | Signature | + +-------+ + + + | BUN | 10 | 7 - 18 mg/dL | [facility] | | | | | | SOO [...] + | [facility] | [address] | [place], [place] | [phone] | | [facility] | | [address] | | | - LABORATORY | | | | + + + + + | [facility] | [address] | [place], [place] | | | [facility] | | [address] | | | - LABORATORY | | | | + + + + + documented in this encounter Visit Diagnoses + + | Diagnosis | + + | Squamous cell carcinoma of lung, stage I, right (HCC) | + + documented in this encounter"
--- OUTSIDE RECORDS SUMMARY | ~2019-12-28 | XMS | Encounter Summary ---
Demographics + + + | Address | [address] | | | [place] [address] | + + + | Home Phone [...] [place] | | | | | [address] | | + + + + + Care Team Providers + +------+ + | Care Commercial Intern Name | Role | Phone | [...] + + | 09/06/ | Hospital | [facility] | Adelita Lu MD | Recurrent squamous | | 2015 | Encounter | [facility] | Need updated | cell carcinoma of | | | | ONCOLOGY CLINIC [address] | address | lung, unspecified | | | | [address] [place] | | laterality (HCC) | | | | [place] [address] | | (Primary Dx) | | | | [phone] | | | +--------+ + + + [...] + + + | Blood Pressure | 138/74 | 09/06/2014 9:37 AM | | | | | PDT | | + + + + + | Pulse | 87 | 09/06/2014 9:37 AM | | | | | PDT | | + + + + + | Temperature | 37.1 C (98.8 F) | 09/06/2014 9:37 AM | | | | | PDT | | + + + + + | Respiratory Rate | - | - | | + + + + + | Oxygen Saturation | 94% | 09/06/2014 9:37 AM | | | | | PDT | | + + + + + | Inhaled Oxygen | - | - | | | Concentration | | | | + + + + + | Weight | 69.5 kg (153 lb 3.5 | 09/06/2014 9:37 AM | | | | oz) | PDT | | + + + + + | Height | - | - | | + + + + + | Body Mass Index | 28.02 | 08/28/2014 10:03 AM | | | [...] encounter Progress Notes Adelita Lu MD - 09/06/2014 9:35 AM PDT Hem-Onc Progress Note [facility] Patient name:Thea Carmona : 1945 Age: 69 y.o. CSN: [id number] Date of Service: 09/06/2014 Identifying Statement: Thea Carmona is a 69 y.o. female from [facility] with clinical stage II, non-small cell [...] lewis 2.CT-guided biopsy by interventional radiology at [facility] of the right lung massshows squamous [...] Dr. Beltran , thoracic [facility] [...] right hilar node REVIEW OF SYSTEMS Constitutional: Denies fatigue-energy is "bad", able to do ADL's but not much else. Denies high fevers, had a low grade temp yesterday, denies shaking chills, anorexia, had mild nause a, and one episode of vomiting on Thursday morning, denies weight loss, or night sweats. Appe tite "I have to force myself to eat, losing my taste". Ear, Nose, Mouth, Throat: Denies odynophagia, dysphagia, or tinnitus. Has dry mouth, someti mtlelia has trouble swallowing. Cardiovascular: Reports shortness of breath, dyspnea on exertion, denies chest pain, palpit ations or orthopnea. Respiratory: Reports cough-mucus is mostly white but sometimes green tinged- relief with mu cinex, denies hemoptysis. Gastrointestinal: Reports abdominal pain-feels like a belt going around her, constipation, diarrhea, melena, or bright red blood per rectum. Genitourinary: Denies hematuria or dysuria. She has had some urinary incontinence, saw PCP and she was started on samples that have helped. Musculoskeletal: Ongoing joint pain & tenderness. Neurologic: Frequent mild headaches, reports some visual changes-double vision or blurrines s sometimes, reports numbness/tingling of the feet sometimes. Endocrine: Has bilateral peripheral edema-more on the left ankle , denies heat/cold intoler ance. Hematologic: Reports lots of bruising, occasionally has nose bleeding. Integumentary: Denies rash, wounds or other skin concerns. Pain: Denies pain. Note: She has 7-8 days of radiation to go. My chart: declines Past Medical History: Past Medical History Diagnosis Date COPD (chronic obstructive pulmonary disease) ([facility]) on albuterol Spondylolisthesis of cervical region Spinal stenosis has tried cortisone injections Osteoporosis Depression Pneumonia 2009 hospitalized 5 days Rheumatoid arthritis(714.0) ([facility]) [facility] Hyperlipidemia on simvastatin Hypertension on clonidine and lisinopril Hypothyroidism GERD (gastroesophageal reflux disease) Stroke ([facility]) 2006 Stroke ([facility]) 2007 Squamous cell carcinoma of lung ([facility]) 07/2013 right lower lobe Sputum culture positive for Scopulariopsis species Recurrent squamous cell carcinoma of lung ([facility]) 07/11/[address] [...] mg by mouth Daily. RESPIRATORY THERAPY SUPPLIES [employer] ResMed S9 auto CPAP 5-9 cm H2O. Heater and Humidifier . All necessary supplies. AHI 11.6. Diagnosis Code(s)327.23, also has co morbid hypertension , history of stroke. Length of Need 99 months. Please send order to [facility]. RESPIRATORY THERAPY SUPPLIES [employer] Respironics autotitrating CPAP at 5-9 cm H2O [...] (98.8 F)] 37.1 C (98.8 F) Pulse: [87] 87 BP: (138)/(74) 138/74 mmHg Gen.: Performance status ECoG 1 . Well nourished, appears well not in apparent distress.. Chest: Clear to auscultation. No wheezes present Extremities: No edema Musculoskeletal: Patient is in a wheelchair today LABORATORY DATA: Recent Results (from the past 24 hour(s)) COMPREHENSIVE METABOLIC PANEL Result Value Range NA 136 136-149 mmol/L K 3.7 3.5-5.1 mmol/L CL 106 98-109 mmol/L CO2 27 24-31 mmol/L ANION GAP 3 3-16 mmol/L GLUCOSE 110 (*) 70-109 mg/dL BUN 8 7-18 mg/dL Creatinine, Serum/Plasma 0.72 0.60-1.30 mg/dL eGFR if not >60 >=60 mL/min/1.73m2 CALCIUM 8.2 (*) 8.3-10.5 mg/dL ALBUMIN 2.8 (*) 3.2-5.0 g/dL BILIRUBIN TOTAL 0.6 0.1-1.5 mg/dL Total protein 5.3 (*) 6.0-7.8 g/dL AST 25 10-42 U/L ALT 23 6-45 U/L ALK PHOS 49 40-110 U/L GLOBULIN 2.5 Albumin/Globulin ratio 1.1 BUN/CREA 11.1 CBC WITH DIFFERENTIAL Result Value Range WBC 1.1 (*) 4.0-11.0 K/uL RBC 3.08 (*) 3.70-5.20 M/uL Hgb 9.6 (*) 11.5-16.0 g/dL Hct 29.7 (*) 34.0-47.0 % MCV 96.5 83.0-101.0 fL MCH 31.4 28.0-35.0 pg MCHC 32.5 32.0-36.0 g/dL RDW 21.9 (*) <15.0 % Platelet Count 79 (*) 140-440 K/uL MPV 8.1 % Neutrophils 77.0 45.0-82.0 % % Lymphocytes 13.2 (*) 20.0-45.0 % % Monocytes 7.9 4.0-12.0 % % Eosinophils 1.2 0.0-5.0 % % Basophils 0.7 0.0-1.0 % Absolute Neutrophils 0.90 (*) 1.80-8.50 K/uL Absolute Lymphocytes 0.10 (*) 0.60-3.20 K/uL Absolute Monocytes 0.10 0.00-1.00 K/uL Absolute Eosinophils 0.00 0.00-0.40 K/uL Absolute Basophils 0.00 0.00-0.10 K/uL Imaging: PET/CT scan June 2014: [facility]: Necrotic right lung lesion wit [...] Plavix 4. Myelosuppression secondary to chemotherapy PLAN: Hold chemotherapy this week because of myelosuppression. Hold weekly dose of methotr exate which the patient takes for rheumatoid arthritis for the past 30 years. Neutropenic p recautions explained She knows to call our office for fevers more than 100.5. Follow-up in one week Total time face to face discussion with the patient and family was 15 minutes, more than 5 0% of the time was spent counseling and coordination of care. Adelita Lu MD Portions of this chart may have been created with [employer] voice recognition software. Occasi onal wrong-word or [...] | 2019 | Visit | | [address] | | | | | | [facility] | | | | | | [place] [address] | | | | | | [phone] | | | | | | | | +--------+---------+ + + + documented as of this encounter Visit Diagnoses + + | Diagnosis | + + | Recurrent squamous cell carcinoma of lung, unspecified laterality (HCC) - Primary | + + documented in this encounter
--- OUTSIDE RECORDS SUMMARY | ~2019-12-28 | XMS | Encounter Summary ---
Demographics + + + | Address | [address] | | | [place] [address] | + + + | Home Phone [...] [place] | | | | | [address] | | + + + + + Care Team Providers + +------+ + | Care Practice Management Consultant Name | Role | Phone | + +------+ + | Davis Ivan MD | PCP | | + +------+ + Encounter Details +--------+ + + + + | Date | Type | Department | Care Team | Description | +--------+ + + + + | 08/30/ | Hospital | [facility] | Conversion | Pain | | 2014 | Encounter | CONVERSION DEP [address] | Transaction, | | | | | [address] | Provider Unknown | | | | | [place] | [phone] | | | | | [address] | | | | | | [phone] | | | +--------+ + + + [...] | 2019 | Visit | | [address] | | | | | | [facility] | | | | | | [place] [address] | | | | | | [phone] | | | | | | | [...]
--- OUTSIDE RECORDS SUMMARY | ~2019-12-28 | XMS | Encounter Summary ---
Demographics + + + | Address | [address] | | | [place] [address] | + + + | Home Phone [...] [place] | | | | | [address] | | + + + + + Care Team Providers + +------+ + | Care Log Driver Name | Role | Phone | + +------+ + | Davis Ivan MD | PCP | | + +------+ + Reason for Visit +--------+--------+ + | Reason | Onset | Comments | | | Date | | +--------+--------+ + | Other | 07/06/ | Referral to [facility] | | | 2013 | | +--------+--------+ + Encounter Details +--------+ + + + + | Date | Type | Department | Care Team | Description | +--------+ + + + + | 07/06/ | Telephone | [facility] | Claudia, | Other (Referral to | | 2013 | | PULMONARY [address] | Ayana Looney MD | [facility] | | | | [place], | | ) | | | | [place] [address] | | | | | | [phone] | | | +--------+ + + + [...] this encounter Miscellaneous Notes Telephone Encounter - Narcisa Kwok RN - 07/06/2013 11:38 AM Anna Marie called to check sta tus of referral to [facility] for CT guided needle biopsy appointment. She will venkata ck with [facility] for appointment time. documented in this encounter Plan of Treatment +--------+---------+ + + + | Date | Type | Specialty | Care Team | Description | +--------+---------+ + + + | 03/06/ | Office | Rheumatology | Santosh Sumner, | | | 2019 | Visit | | [address] | | | | | | [facility] | | | | | | [place] [address] | | | | | | [phone] | | | | | | | | +--------+---------+ + + + documented as of this encounter Visit Diagnoses Not on filedocumented in this encounter"
--- OUTSIDE RECORDS SUMMARY | ~2019-12-28 | XMS | Encounter Summary ---
Demographics + + + | Address | [address] | | | [place] [address] | + + + | Home Phone [...] [place] | | | | | [address] | | + + + + + Care Team Providers + +------+ + | Care Rougher For Cement Name | Role | Phone | + [...] | | | | | squamous | Sarita Gramajo, | [place] | | | | | cell | MD [address] | [place], [place] | | | | | carcinoma of | [address] | [address] | | | | | lung, right | [address] | Phone: | | | | | (HCC) | [place], | [phone] | | | | | Procedures | [place] [address] | Fax: | | | | | PET CT Skull | Phone: | [phone] | | | | | [facility] | [phone] | | | | | | Thigh | Fax: | | | | | | | [phone] | | +--------+--------+ + + + + Reason for Visit + + + | Reason | Comments | + + + | Follow-up | | + + + Encounter Details +--------+ + + + + | Date | Type | Department | Care Team | Description | +--------+ + + + + | 11/09/ | Hospital [facility] | Vivian, | Recurrent squamous | | 2015 | Encounter | [facility] | Sarita Gramajo MD [address] | cell carcinoma of | | | | [facility] | [facility] | lung, right (HCC) | | | | [address] | [address] [place], [place] | (Primary Dx); | | | | [place] [address] | [address] | Squamous cell | | | | [phone] | | carcinoma of lung, | | | | | | stage I, right | | | | | | (HCC); Recurrent | | | | | | squamous cell | | | | | | [...] + + + | Blood Pressure | 144/88 | 11/09/2014 1:29 PM | | | | | PDT | | + + + + + | Pulse | 88 | 11/09/2014 1:29 PM | | | | | PDT | | + + + + + | Temperature | 37.1 C (98.8 F) | 11/09/2014 1:29 PM | | | | | PDT | | + + + + + | Respiratory Rate | 22 | 11/09/2014 1:29 PM | | | | | PDT | | + + + + + | Oxygen Saturation | 95% | 11/09/2014 1:29 PM | | | | | PDT | | + + + + + | Inhaled Oxygen | - | - | | | Concentration | | | | + + + + + | Weight | 65.1 kg (143 lb 8.3 | 11/09/2014 1:29 PM | | | | oz) | PDT | | + + + + + | Height | 157.5 cm (5' 2.01") | 11/09/2014 1:29 PM | | | | | PDT | | + + + + + | Body Mass Index | 26.24 | 11/09/2014 1:29 PM | | | | | PDT [...] documented as of this encounter Progress Notes Sarita Hendrix MD - 11/09/2014 1:44 PM PDTFormatting of this note might be differe nt from the original. Hematology/Oncology Progress Note [facility] Pt. Name/Age/: Thea Carmona 69 y.o. 1945 [facility]. Record Number: [id number] Date of admission: 11/09/2014 Identifying Statement: Thea Carmona is a 69 y.o. 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 The patient chart and medications were reviewed in detail and the patient was seen and exam ined. 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 1.Initially seen by Dr. blandon in March 2013 for a pulmonary nodule, right lower lobe measuring 1.9 cm, biopsy was considered risky . Nodule was considered likely infectious/inf lammatory as the patient was immunosuppressed , on methotrexate for rheumatoid arthritis. 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 And lewis 2.CT-guided biopsy by interventional radiology at [facility] of the right lung massshows squamous [...] lower lobe lobectomy and minimally invasive thoracoscopic lymph adenectomy : Dr. José Miguel mace : 09/16/13:3.2x 3.0x1.7 cm tumor, squamous carcinoma, focally inv ades the visceral pleura without involvement of visceral pleural surface, all margins uninvo lved, all 10 lymph nodes negative for malignancy, T2aN0, stage IB. 6. Presented with an enlarging right upper lobe lung nodule in June 2014. PET CT scan sh owed an SUV of 2.7 and a large right necrotic hilar lymph node with an SUV of 12.4. 7. Bronchoscopy and EBUS guided FNA of right hilar lymph node: 07/11/2014: Positive for peter gnant cells. Keratinizing squamous cell carcinoma 8. Completed concurrent chemoradiation with weekly carboplatin and Taxol in August 2014 9. Admitted to [facility] on September 27, 2014 for right-sided chest pain secondar y to acute bronchitis. 10. CT chest [facility] on September 28, 2014 demonstrated persistent 32 mm x 26 mm x 27 mm Right Hilar Mass. Current Assessment & Plan Stephanie returned to the [facility] on November 09, 2014 for f ollow up of her locally recurrent RIGHT Lung cancer. Interval history is notable for the fac t that Thea was admitted to [facility] in [place], [place] for acute exacerbatio n of chronic bronchitis. During her hospitalization there, a chest CT was performed demonstr ating a persistent 32 x 26 mm right hilar mass. These images were reviewed subsequently at [facility] on their PACS system. Radiographic abnormality in the right hilum ma y represent persistent tumor or simply residual, non viable tissue following combined modali ty therapy. Since therapeutic effect of irradiation may be delayed, I recommended waiting an additional month before proceeding with repeat PET scan to assess for persistent disease. PET/CT schedule at [facility] on December 21, 2014 with follow up at [facility] the following week. RESOLVED: Squamous cell carcinoma of lung, stage Ib Review of Systems: Constitutional:Reports that her energy level is pretty low. Reports that she has been runn ing a low grade fever for the past 4-5 days. She reports that she is cold a lot but doesn't really have any chills. Denies high fevers, shaking chills. Reports that she doesn't have v raquel much of an appetite and has to force herself to eat. Reports that she does have occasio nal nausea and rare episodes of vomiting. There is no weight documented from last visit noa mackey patient reports that she has lost 7 pounds since her last visit. Pt reports that she con tinues to have horrible night sweats. Ear, Nose, Mouth, Throat: Denies odynophagia, dysphagia. Reports that she does have interm ittent ringing in her ears. Cardiovascular: Pt reports that she does have shortness of breath with any activity but hannah sn't feel short of breath at rest. Denies chest pain, palpitations or orthopnea. Respiratory: Reports that she coughs a lot and brings up green mucus. States that she was recently admitted to the hospital at [place] with excruciating pain in her right lung. She had bloodly nose at this time as well. States that she was put on 3 different antibiotics and felt so much better when she was discharged. Reports that she does have occasional hemo ptysis. Gastrointestinal: Pt reports that she an intermittent band of pain that goes around her low er back and lower Abdomen area that is an intermittent aching like pain. Denies constipati on, diarrhea, melena, or bright red blood per rectum. Scheduled for a colonoscopy with Dr. Govea on 12/13/14. She states that she has developed a hernia in her right pelvic area from all of the coughing. Genitourinary: Reports that her urine stream is sporadic however not painful. Denies hemat uria. Musculoskeletal: Pt reports generalized joint pain or tenderness from her RA. Neurologic: Denies headache, visual changes, or numbness/tingling of the extremities. Endocrine: Pt reports chronic edema in the left ankle. Pt reports heat/cold intolerance. Hematologic: Denies spontaneous bruising or bleeding. Pt reports bruising easily. Integumentary: Denies rash, wounds or other skin concerns. Pain: Reports that the band of pain that she has intermittently is 5-6/10. She rates the p ain of her RA as a 6/10 and uses Dilaudid for this. She states that it helps a lot. Note: Pt is here for follow up and labs. Concerns as noted above. My chart:declined Review of systems as above otherwise negative Past Medical and Surgical History, Social History and Problems: Past Medical History Diagnosis Date COPD (chronic obstructive pulmonary disease) ([facility]) on albuterol Spondylolisthesis of cervical region Spinal stenosis has tried cortisone injections Osteoporosis Depression Pneumonia 2009 hospitalized 5 days Rheumatoid arthritis(714.0) ([facility]) on prednisone and methotrexate, Dr. 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 Past Surgical History Procedure Laterality Date Hysterectomy Cholecystectomy Cervical spine surgery 2012 Bladder suspension Shoulder surgery Thumb surgery Shoulder surgery right shoulder Tongue surgery benign per pt Lung biopsy 07/21/13 right lower lobe Lobectomy 09/16/13 right lower lobe Back surgery 03/2014 Bronchoscopy 07/11/2014 EBUS with right hilar LN biopsy, [facility] Dr. 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 Social History Main Topics [...] on file Social History Narrative Lives: in [place] With: alone Grew up: in [place] Has previously lived in: [place] Exposure to toxic chemicals: no Exposure to asbestos: no Exposure to tuberculosis: no Has had a PPD or Quantiferon before: no Has pets at home: cat and a dog Has ever owned birds: yes, 5 years ago Other animal exposures: no Hobbies: used to jaja, crossword puzzles, walking her dog Patient Active Problem List Diagnosis COPD (chronic obstructive pulmonary disease) Rheumatoid arthritis Depression Chronic pain Anxiety Osteoporosis Hyperlipidemia Hypertension Hypothyroidism GERD (gastroesophageal reflux disease) MARCE (obstructive sleep apnea) Spinal stenosis in cervical region Sputum culture positive for Scopulariopsis species Pulmonary nodules Recurrent squamous cell carcinoma of lung Scheduled Medications: Patient Reported Taking Dosage aclidinium (TUDORZA PRESSAIR) 400 mcg/puff inhaler (Taking) Inhale 1 puff into the lungs 2 times daily. Number of times this order has been changed since signin [facility] [place] albuterol 2.5 mg/3 mL nebulizer solution (Taking) Take 2.5 mg by nebulization every 6 rodrigo rs as needed. Number of times this order has been changed since signin [facility] [place] albuterol 90 mcg/puff inhaler (Taking) Inhale 2 puffs into the lungs every 6 hours as nee ded for Wheezing or Shortness of Breath. Number of times this order has been changed since signin [facility] [place] aspirin 81 MG tablet (Taking) Take 81 mg by mouth Daily. Number of times this order has been changed since signin [facility] [place] benzonatate (TESSALON PERLES) 100 mg capsule (Taking) Take 1 capsule by mouth 3 times marlen ly as needed for Cough. Number of times this order has been changed since signin [facility] [place] budesonide-formoterol (SYMBICORT) 160-4.5 mcg/puff inhaler (Taking) Inhale 2 puffs into t he lungs 2 times daily. Number of times this order has been changed since signin [facility] [place] cholecalciferol (VITAMIN D-3) 1,000 units capsule (Taking) Take 1,000 Units by mouth Alvarado y. Number of times this order has been changed since signin [facility] [place] cloNIDine (CATAPRES) 0.1 mg tablet (Taking) Take by mouth Daily. Number of times this order has been changed since signin [facility] [place] clopidogrel (PLAVIX) 75 mg tablet (Taking) Take 75 mg by mouth Daily. Number of times this order has been changed since signin [facility] [place] diazepam (VALIUM) 2 mg tablet (Taking) nightly as needed. Number of times this order has been changed since signin [facility] [place] ferrous sulfate (IRON) 28 MG TABS (Taking) Take 28 mg by mouth Daily. Number of times this order has been changed since signin [facility] [place] Fexofenadine HCl (ETHAN ALLERGY PO) (Taking) Take by mouth Daily. Number of times this order has been changed since signin [facility] [place] folic acid 1 mg tablet (Taking) Take 1 mg by mouth Daily. Number of times this order has been changed since signin [facility] [place] guaiFENesin (MUCINEX) 600 mg 12 hr tablet (Taking) Take 1,200 mg by mouth as needed. Number of times this order has been changed since signin [facility] [place] HYDROcodone-acetaminophen (HYCET) 7.5-325 mg/15 mL liquid (Taking) Take 15 mLs by mouth 4 times daily as needed for Pain. Number of times this order has been changed since signin [facility] [place] HYDROmorphone (DILAUDID) 4 MG tablet (Taking) Take 4 mg by mouth every 6 hours as needed. Number of times this order has been changed since signin [facility] [place] levothyroxine (SYNTHROID) 100 mcg tablet (Taking) Take 75 mcg by mouth every morning (bef ore breakfast). Number of times this order has been changed since signin [facility] [place] LORazepam (ATIVAN) 1 mg tablet (Taking) Take 1 mg by mouth every 6 hours as needed for An xiety. Number of times this order has been changed since signin [facility] [place] Magnesium 100 MG CAPS (Taking) Take by mouth Daily. Number of times this order has been changed since signin [facility] [place] methotrexate 2.5 mg tablet (Taking) Take 25 mg by mouth Once a week. Number of times this order has been changed since signin [facility] [place] omeprazole (PRILOSEC) 20 mg capsule (Taking) Take 40 mg by mouth every morning (before br eakfast). Number of times this order has been changed since signin [facility] [place] predniSONE (DELTASONE) 5 mg tablet (Taking) Take 10 mg by mouth Daily. Number of times this order has been changed since signin [facility] [place] ranitidine (ZANTAC) 150 mg tablet (Taking) Take 1 tablet by mouth 2 times daily. Number of times this order has been changed since signin [facility] [place] Respiratory Therapy Supplies MISC (Taking) ResMed S9 auto CPAP 5-9 cm H2O. Heater and Hum idifier. All necessary supplies. AHI 11.6. Diagnosis Code(s)327.23, also has co morbid hyper tension, history of stroke. Length of Need 99 months. Please send order to [facility]. Number of times this order has been changed since signin [facility] [place] simvastatin (ZOCOR) 40 mg tablet (Taking) Take 40 mg by mouth nightly. Number of times this order has been changed since signin [facility] [place] venlafaxine (EFFEXOR) 75 MG tablet (Taking) Take 37.5 mg by mouth 2 times daily. Number of times this order has been changed since signin [facility] [place] Allergy: No Known Allergies Objectives: Temp: 37.1 C (98.8 F) BP: 144/88 mmHg Pulse: 88 Resp: 22 SpO2: 95 % on Min/Max Temp past 24 hours:No Data Recorded No intake or output data in the 24 hours ending 11/11/14 1039 Wt. Admission: Weight: 65.1 kg (143 lb 8.3 oz) Wt. Current: Weight: 65.1 kg (143 lb 8.3 oz) Wt Readings from Last 3 Encounters: 11/09/14 65.1 kg (143 lb 8.3 oz) 10/11/14 67.268 kg (148 lb 4.8 oz) 10/11/14 67.132 kg (148 lb) Physical Exam: Exam: General: The patient is alert and oriented. No acute distress. Eyes: Conjunctiva clear. Sclera anicteric. ENMT: Oropharynx fee of lesions, mucous membranes moist. Cardiovascular: Regular rate and rhythm, no rubs, gallops, or murmurs. Respiratory: Clear to auscultation and percussion. Abdomen: Soft, nontender, no hepatospenomegaly. No palpable masses. Bowel sounds present. Extremities: Nontender, no erythema, no edema. Skin: No rashes, bruising, or petechiae. Lymph: No palpable nodes in the neck, supraclavicular fossa, axilla or groin. Neurological: Cranial nerves are intact. Station and gait limited by arthritis. Muscular/Skeletal: No acute bony tenderness. No evidence of sarcopenia. Psychiatric: Normal mood and affect. ECOG Performance Status [] 0 [] 1 [x] 2 []3 [] 4 ECOG PERFORMANCE STATUS* Grade ECOG Karnofsky 0 Fully active, able to carry on all pre-disease performance without restriction. 90 - 100 1 Restricted in physically strenuous activity but ambulatory and able to carry out work of a light or sedentary nature, e.g., light house work, office work 70 - 80 2 Ambulatory and capable of all selfcare but unable to carry out any work activ ities. Up and about more than 50% of waking hours 50 - 60 3 Capable of only limited selfcare, confined to bed or chair more than 50% of w aking hours 30 - 40 4 Completely disabled. Cannot carry on any selfcare. Totally confined to bed or chair 10 - 20 * As published in Am. J. Clin. Oncol.: Markus Osorio., Amparo Jacobs., Adrienne Casillas., Krysta Davis, Alissa Huddleston., Meli Ribera., Juaquin, P JanetP.: Toxicity And Response Criteria Of The Eastern Cooperative Oncology Group. Am J Clin Onc ol 5:649-655, 1982. The ECOG Performance Status is in the public domain therefore available for public use. To duplicate the scale, please cite the reference above and credit the Eastern Cooperative Onco logy Group, Sarita Beltre M.D., Group Chair Diagnostic studies: Available data and images were reviewed personally. See reports. Significant results and findings are addressed here or in the Assessment and Plan. Results for THEA CARMONA ( ) as of 11/11/2014 10:36 Ref. Range 11/09/2014 13:13 WBC Latest Range: 4.0-11.0 K/uL 7.6 RBC: Latest Range: 3.70-5.20 M/uL 3.53 (L) Hgb Latest Range: 11.5-16.0 g/dL 11.7 Hct, Final Latest Range: 34.0-47.0 % 36.3 MCV Latest Range: 83.0-101.0 fL 102.8 (H) MCH Latest Range: 28.0-35.0 pg 33.1 MCHC Latest Range: 32.0-36.0 g/dL 32.2 RDW Latest Range: <15.0 % 19.5 (H) Platelet [...] mg/dL 0.5 GLOBULIN No range found 3.1 Pharmacovigilance: IDT PATIENT MEDICATION/PROFILE REVIEW [facility] Pharmacy Recommendation __XX__ Observation only for increased paclitaxel toxicity; other interactions addressed alr yaima Pharmacy Assessment Therapy emetogenicity risk vs. supportive meds ordered: moderate/appropriate Drug interactions of concern: zofran + effexor/symbicort can increase risk of QT interval p rolongation; switched premed to aloxi. Taxol levels can be increased by both zocor and plavi x. Observe for possible increased toxicity of paclitaxel [...] Ht 157.5 cm, BSA 1.78 m2, BMI 27. 79 kg/m2 , Est CrCl = 71 ml/min Allergies : Review of patient's allergies indicates no known allergies. Diagnosis:stage IB non-small cell squamous cell carcinoma of the lung Treatment Regimen: Carboplatin AUC 2 + Paclitaxel 50 mg/m2 + RT Chemotherapy/Supportive therapy: Ondansetron Prochlorperazine Lorazepam palonosetron Famotidine Diphenhydramine Paclitaxel Carboplatin Reference/citation for therapy: http://jco.ascopubs.org/content/.full -Combined C hemoradiotherapy regimens of Paclitaxel and carboplatin for locally advanced col-izskr-ejuy lung cancer: a randomized phase II locally advanced multi-modality protocol. Pertinent Medical History: has a past medical history of COPD (chronic obstructive pulmona ry disease) ([facility]); Spondylolisthesis of cervical region; Spinal stenosis; Osteoporosis; Depr ession; Pneumonia (2008); Rheumatoid arthritis(714.0) ([facility]); Hyperlipidemia; Hypertension; H ypothyroidism; GERD (gastroesophageal reflux disease); Stroke ([facility]) (2006); Stroke ([facility]) (18 01); Squamous cell carcinoma of lung ([facility]) (07/2013); Sputum culture positive for Scopulariop sis species; Recurrent squamous cell carcinoma of lung ([facility]) (07/11/2014); MARCE (obstructive s leep apnea); and Full dentures. Other pertinent objective data: none Current Medications: Current Outpatient Prescriptions on File Prior to Visit Medication Sig Dispense Refill albuterol 2.5 mg/3 mL nebulizer solution Take 2.5 mg by nebulization every 6 hours as needed. albuterol 90 mcg/puff inhaler Inhale 2 puffs into the lungs every 6 hours as needed f or Wheezing or Shortness of Breath. 1 Inhaler PRN aspirin 81 MG tablet Take 81 mg by mouth Daily. budesonide-formoterol (SYMBICORT) 160-4.5 mcg/puff inhaler Inhale 2 puffs into the dipti ngs 2 times daily. 1 Inhaler 11 cholecalciferol [...] 75 mcg by mouth every morning (before b reakfast). Magnesium 100 MG CAPS Take by mouth Daily. methotrexate 2.5 mg tablet Take 25 mg by mouth Once a week. omeprazole (PRILOSEC) 20 mg capsule Take 20 mg by mouth Twice daily breakfast/Bedtime . POTASSIUM GLUCONATE Take 1 tablet by mouth Daily. predniSONE (DELTASONE) 5 mg tablet Take 10 mg by mouth Daily. Respiratory Therapy Supplies [facility] ResMed S9 auto CPAP 5-9 cm H2O. Heater and Humidifi er. All necessary supplies. AHI 11.6. Diagnosis Code(s)327.23, also has co morbid hypertensi on, history of stroke. Length of Need 99 months. Please send order to [facility]. 1 ch 99 simvastatin (ZOCOR) 40 mg tablet Take [...] U/L Final Electronically signed by: Hiral Dsouza [facility] 07/31/2014 11:32 Palliative Care: No immediate needs identified. SARITA HENDRIX MD Portions of this chart may have been created with Spark voice recognition software. Occasi onal wrong-word or sound-alike substitutions may have occurred due to the inherent guzman itations of voice recognition software. Please read the chart carefully and recognize, using context, where these substitutions have occurred. documented in t his encounter Miscellaneous Notes Assessment & Plan Note - Sarita Hendrix MD - 11/10/2014 10:59 AM PDTAssociated Prob silas(s): Recurrent squamous cell carcinoma of lung (HCC)Stephanie returned to the [facility] on November 09, 2014 for follow up of her locally recurrent RIGHT L brianne cancer. Interval history is notable for the fact that Thea was admitted to [facility] in [place], [place] for acute exacerbation of chronic bronchitis. During her hospi talization there, a chest CT was performed demonstrating a persistent 32 x 26 mm right hilar mass. These images were reviewed subsequently at the [facility] on their PACS sys tem. Radiographic abnormality in the right hilum may represent persistent tumor or simply re sidual, non viable tissue following combined modality therapy. Since therapeutic effect of irradiation may be delayed, I recommended waiting an additional month before proceeding with repeat PET scan to assess for persistent disease. PET/CT schedule at [facility] on December 21, 2014 with follow up at [facility] the following week. documented in this encounter Plan of Treatment +--------+---------+ + + + | Date | Type | Specialty | Care Team | Description | +--------+---------+ + + + | 03/06/ | Office | Rheumatology | Santosh Sumner, | | | 2019 | Visit | | [address] | | | | | | [facility] | | | | | | [place] [address] | | | | | | [phone] | | | | | | | | +--------+---------+ + + + documented as of this encounter Procedures + +--------+ + + + | Procedure Name | Priori | Date/Time | Associated Diagnosis | Comments | | | ty | | | | + +--------+ + + + | CBC WITH | STAT | 11/09/2014 | Squamous cell | Results for this | | DIFFERENTIAL | | 1:13 PM | carcinoma of lung, | procedure are in the | | | | PDT | stage I, right ([facility]) | results section. | + +--------+ + + + | LACTATE | STAT | 11/09/2014 | Squamous cell | Results for this | | DEHYDROGENASE | | 1:13 PM | carcinoma of lung, | procedure are in the | | | | PDT | stage I, right ([facility]) | results section. | + +--------+ + + + | COMPREHENSIVE | STAT | 11/09/2014 | Squamous cell | Results for this | | METABOLIC PANEL | | 1:13 PM | carcinoma of lung, | procedure are in the | | | | PDT | stage I, right ([facility]) | results section. | + +--------+ + [...] + | Raoul Lockwood Results In - 12/21/2014 4:44 PM PDT [...] | | | + +---------+ + + Lactate Dehydrogenase (11/09/2014 1:13 PM PDT) + +---------+ + + + | Component | Value | Ref Range | Performed | Pathologist | | | | | At | Signature | + +---------+ + + + | LDH TOTAL | 205 (H) | 91 - 180 U/L | [facility] | | | | | [...] [address] | [place] | [phone] | | [facility] | | [address] | | | - LABORATORY | | | | + + + + + Comprehensive Metabolic Panel (11/09/2014 1:13 PM PDT) + + + + + + | Component | Value | Ref Range | Performed | Pathologist | | | | | At | Signature | + + + + + + | Na | 135 (L) | 136 - 149 | [facility] | [...] + + + + | Glucose | 118 (H) | 70 - 109 mg/dL | [facility] | | | | | | [facility] | | | [facility] | | | | | | [facility] - | | | | | | LABORATORY | | + + + + + + | BUN | 10 | 7 - 18 mg/dL | [facility] | | | | | | [facility] | | | | | | [facility] | | | | | | CENTER - | | | | | | LABORATORY | | + + + + + + | Creatinine | 0.77 | 0.60 - 1.30 | [facility] | | | | | mg/dL | [facility] | | | | | | MEDICAL | | | | | | CENTER - | | | | | | LABORATORY | | + + + + + + | eGFR, | >60Comment: GLOMERULAR | >=60 | [facility] | | | non- | FILTRATION | mL/min/1.73m2 | [facility] | | | [place] | RATE,ESTIMATED | | MEDICAL | | | | mL/min/1.78r4Ugpy than | | CENTER - | | [...] + + + + | Calcium | 8.5 | 8.3 - 10.5 | [facility] | | | | | mg/dL | [facility] | | | | | | MEDICAL | | | | | | CENTER - | | | | | | LABORATORY | | + + + + + + | Albumin | 3.3 | 3.2 - 5.0 g/dL | [facility] [...] + + + + | ALT | 17 | 6 - 45 U/L | [facility] | | | | | | [facility] | | | | | | MEDICAL | | | | | | CENTER - | | | | | | LABORATORY | | + + + + + + | Alkaline | 65 | 40 - 110 U/L | [facility] [...] + + + + | BUN/Creatin | 13.0 | | [facility] | | | ine [...] [address] | [place] | [phone] | | [facility] | | [address] | | | - LABORATORY | | | | + + + + + CBC with Differential (11/09/2014 1:13 PM PDT) + + + + + + | Component | Value | Ref Range | Performed | Pathologist | | | | | At | Signature | + + + + + + | White Blood | 7.6 | 4.0 - 11.0 K/uL | [facility] | | | Cells | | | [facility] | | | | | | MEDICAL | | | | | | CENTER - | | | | | | LABORATORY | | + + + + + + | Red Blood | 3.53 (L) | 3.70 - 5.20 | [facility] | | | Cells | | M/uL | [facility] | | | | | | MEDICAL | | | | | | CENTER - | | | | | | LABORATORY | | + + + + + + | Hemoglobin | 11.7 | 11.5 - 16.0 | [facility] | | | | | g/dL | [facility] | | | | | | MEDICAL | | | | | | CENTER - | | | | | | LABORATORY | | + + + + + + | Hematocrit | 36.3 | 34.0 - 47.0 % | [facility] | | | | | | [facility] | | | | | | [facility]ICAL | | | | | | CENTER - | | | | | | LABORATORY | | + + + + + + | MCV | 102.8 (H) | 83.0 - 101.0 fL | [facility] | | | | | | [facility] | | | | | [facility] | | | | | | CENTER - | | | | | | LABORATORY | | + + + + + + | MCH | 33.1 | 28.0 - 35.0 pg | [facility] | | | | | | [facility] | | | | | | [facility]ICAL | | | | | | CENTER - | | | | | | LABORATORY | | + + + + + + | MCHC | 32.2 | 32.0 - 36.0 | [facility] | [...] + + + + | Platelet | 179 | 140 - 440 K/uL | [facility] | | | Count | | | [facility] | | | | | | MEDICAL | | | | | | CENTER - | | | | | | LABORATORY | | + + + + + + | MPV | 7.5 | fL | [facility] | | | | | | [facility] | | | | | | [facility]ICAL | | | | | | CENTER - | | | | | | LABORATORY | | + + + + + + | % | 85.3 (H) | 45.0 - 82.0 % | [facility] | | | Neutrophils | | | [facility] | | | | | | MEDICAL | | | | | | CENTER - | | | | | | LABORATORY | | + + + + + + | % | 8.9 (L) | 20.0 - 45.0 % | [facility] | | | Lymphocytes | | | [facility] | | | | | | MEDICAL | | | | | | CENTER - | | | | | | LABORATORY | | + + + + + + | % Monocytes | 4.7 | 4.0 - 12.0 % | [facility] [...] + + + + | Absolute | 6.50 | 1.80 - 8.50 | [facility] | [...] [address] | [place] | [phone] | | [facility] | | [address] | | | - LABORATORY | | | | + + + + + documented in this encounter Visit Diagnoses + + | Diagnosis | + + | Squamous cell carcinoma of lung, stage I, right (HCC) | + + | Recurrent squamous cell carcinoma of lung, unspecified laterality (HCC) | + + documented in this encounter
--- OUTSIDE RECORDS SUMMARY | ~2019-12-28 | XMS | Encounter Summary ---
Demographics + + + | Address | [address] | | | [place] [address] | + + + | Home Phone [...] [place] | | | | | [address] | | + + + + + Care Team Providers + +------+ + | Care Director Manufacturing Engineering Name | Role | Phone | [...] + + | 12/16/ | Office | [facility] [place] | Giuliano Padilla, | Right hand pain | | 2018 | Visit | ORTHOPEDIC SURGERY | MD [address] | (Primary Dx); Left | | | | [address] | [place] | hand pain; Postop | | | | [place] | [address] | check | | | | [address] | | | | | | [phone] | | | +--------+---------+ + + + [...] | 58.5 kg (129 lb) | 12/16/2017 3:27 PM | | | | | PDT | | + + + + + | Height | 157.5 cm (5' 2") | 12/16/2017 3:27 PM | | | | | PDT | | + + + + + | Body Mass Index | 23.59 | 12/16/2017 3:27 PM | | | | | PDT | | + + + + + documented in this encounter Progress Notes Giuliano Padilla MD - 12/16/2017 3:45 PM PDTPatient returns postop right first CMC arthrop lasty She's doing very well She has good range of motion of her thumb and 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 No tenderness and no sensory deficit Transition activities are discussed and we'll see her as needed documented in this encounter Plan of Treatment +--------+---------+ + + + | Date | Type | Specialty | Care Team | Description | +--------+---------+ + + + | 03/06/ | Office | Rheumatology | Taisha Santosh, | | | 2019 | Visit | | [address] | | | | | | [facility] | | | | | | [place] [address] | | | | | | [phone] | | | | | | | | +--------+---------+ + + + documented as of this encounter Results XR Hand Right [...] Procedure Note | + + | Fabián, Raoul Results In - 12/16/2017 6:31 PM PDT [...] + | Right hand pain - Primary Pain in limb | + + | Left hand pain Pain in limb | + + | Postop check Follow-up examination, following unspecified surgery | + + documented in this encounter
--- OUTSIDE RECORDS SUMMARY | ~2019-12-28 | XMS | Encounter Summary ---
Demographics + + + | Address | [address] | | | [place] [address] | + + + | Home Phone [...] [place] | | | | | [address] | | + + + + + Care Team Providers + +------+ + | Care Promotional Advertising Assistant Name | Role | Phone | [...] | +--------+ + + + + | 09/04/ | Hospital | [facility] | Jimmy Banegas DO | | | 2015 | Encounter | MED CTR RADIATION | [address] | | | | | ONCOLOGY [address] | [place] | | | | | Secretary [place], | [address] | | | | | [place] [address] | | | | | | [phone] | | | +--------+ + + + [...] documented as of this encounter Miscellaneous Notes Miscellaneous - Jimmy Avila, DO - 09/21/2014 5:45 PM PDTPATIENT: Thea CarmonaDO S:09/21/2014MR#: [id number] :1945 Radiation Oncology Treatment Summary ICD-9/Diagnosis: 162.5 - Malignant neoplasm of lower lobe, bronchus or lung, Diagnosed 07/21/2013 (Active) CC: José Miguel Mace M.D. Davis Ivan M.D. Ayana Taylor M.D. Adelita Lu M.D. Aircraft Parts Assembler Treatment Summary: Thea Carmona recently completed a curative course of treatment with concurrent chemoradi otherapy for a diagnosis of 162.5 - Malignant neoplasm of lower lobe, bronchus or lung, Ro gnosed 07/21/2013 (Active) Stage IIA, T2a, N1, M0. Thea was treated in our clinic between the dates of 08/08/2014 - 09/21/2014. Pathology: 162.5 - Malignant neoplasm of lower lobe, bronchus or lung Cell HistologyCategory: Squamous Cell; Type: Squamous cell carcinoma, NOS; Grade II - Mode rately differentiated Prescription: Thorax (Plan ID - R Lung/Hilum) - Rx Dose 6,600cGy (Status - Completed) - Treatment Technique: VMAT Treatment Summary: Course: Thorax Treatment Site: R Lung/Hilum Energy: 6X Dose/Fx (cGy): 200 #Fx: Total Dose (cGy): 6,600 Start Date: 08/08/2014 End Date: 09/21/2014 Elapsed Days: 44 Impression/Disposition: Thea completed the planned course of course of external beam radiation therapy uneventful ly and without any unexpected complications. On the last day of treatment, Thea was evalua april and coordination of care was arranged between providers for future visits. Follow-up wi ll be scheduled according to routine protocol with appropriate labs and imaging as indicate d by diagnosis per current applicable NCCN guidelines. Thea was encouraged to call our cli karlee with any further questions or concerns. Thank you for allowing me to participate in the care of Thea Carmona. Thea was i nstructed to resume usual and customary care with her primary care provider and other physi cians involved in her immediate care. If you should have any questions regarding this naren tment summary, please do not hesitate to contact me. Jimmy Banegas D.O., [facility] Rad[facility] Oncologist Department of Radiation Oncology [facility] This note was transcribed using [employer] speech recognition software. As a result, there ma y be unintended for medical and/or spelling errors. Every attempt is made to correct dicta tion. If there are any questions or errors please contact our office. Page 1 of 2 CSN: [id number] signed by Jimmy Banegas DO at 09/21/2014 5:45 PM Josh chen in this encounter Plan of Treatment +--------+---------+ + + + | Date | Type | Specialty | Care Team | Description | +--------+---------+ + + + | 03/06/ | Office | Rheumatology | Santosh Sumner, | | | 2019 | Visit | | [address] | | | | | | [facility] | | | | | | [place] [address] | | | | | | [phone] | | | | | | | | +--------+---------+ + + + documented as of this encounter Visit Diagnoses Not on filedocumented in this encounter"
--- OUTSIDE RECORDS SUMMARY | ~2019-12-28 | XMS | Encounter Summary ---
Demographics + + + | Address | [address] | | | [place] [address] | + + + | Home Phone [...] [place] | | | | | [address] | | + + + + + Care Team Providers + +------+ + | Care Jailer Chief Name | Role | Phone | [...] | Closed | | | Diagnoses | Deacon, | [facility] | | | | | Impingement | Rodney | [facility] | | | | | syndrome of | Mu-Ism, | [address] | | | | | left | MD [address] | | | | | shoulder | [address] | [place], [place] | | | | | Muscle left | [place], | [address] | | | | | arm weakness | [place] | Phone: | | | | | Procedures | [address] | [phone] | | | | | MRI | Phone: | Fax: | | | | | Shoulder | [phone] | [phone] | | | | | Left wo | Fax: | | | | | | Contrast | [phone] | | +--------+--------+ + + + + [...] Closed | | Orthopedic | Diagnoses | [place], [...] | | | | shoulder | [place] [address] | [place] | | | | | | Phone: | [address] | | | | | | [phone] | Phone: | | | | | | Fax: | [phone] | | | | | | [phone] | Fax: | | | | | | | [phone] | +--------+--------+ + + + + Encounter Details +--------+---------+ + + + | Date | Type | Department | Care Team | Description | +--------+---------+ + + + | 03/01/ | Office | [facility] | Rodney Worthy | Impingement syndrome | | 2019 | Visit | ORTHOPEDIC SURGERY | MD [address] | of left shoulder | | | | [address] | [address] | (Primary Dx); Muscle | | | | [place] | [facility] [place] [address] | left arm weakness | | | | [address] | [phone] | | | | | [phone] | | | +--------+---------+ + + + [...] strength Fever or chills Date Last Reviewed: 12/31/201519999213-6227 [employer]. [address] [place] [address]. All righ ts reserved. This information is not intended as a substitute for professional medical care. Always follow your healthcare professional's instructions. documented in this encounter Progress Notes Rodney Worthy MD - 03/01/2019 2:30 PM PDTFormatting of this note might be dif ferent from the original. [facility] RETURN CLINIC VISIT Pt. Name/Age/: Thea Carmona [...] disease Arthritis COPD (chronic obstructive pulmonary disease) ([facility]) on albuterol Depression HONG (dyspnea on exertion) Full dentures upper & lower GERD (gastroesophageal reflux disease) Hyperlipidemia on simvastatin Hypertension on clonidine and lisinopril Hypothyroidism Obesity MARCE (obstructive sleep apnea) no CPAP Osteoporosis Pneumonia 2008 hospitalized 5 days 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 Lewis, [place] Spinal stenosis has tried cortisone injections Spondylolisthesis of cervical region Sputum culture positive for Scopulariopsis species Squamous cell carcinoma of lung (HCC) 07/2013 right lower lobe Stroke ([facility]) 2006 Stroke ([facility]) 2007 left sided weakness Upper GI bleed 06/2014 admitted [place] Wears dentures Past Surgical History: Procedure Laterality Date BACK SURGERY 03/2014 BLADDER SUSPENSION BRONCHOSCOPY 07/11/2014 EBUS with right hilar LN biopsy, [facility] Dr. [place] CERVICAL SPINE SURGERY 2012 CHOLECYSTECTOMY COLONOSCOPY 06/2014 ENDOSCOPY FINGER TRIGGER RELEASE Left 12/14/2018 Procedure: Left Thumb Trigger Finger Release, Left Index Trigger Finger Release, Left Long Trigger Finger Release, Left Ring Trigger Finger Release; Surgeon: Giuliano Padilla MD; Lo cation: [facility] MAIN OR HAND ARTHROPLASTY Left 03/20/2015 Procedure: Left 1st C.M.C. Arthroplasty; Surgeon: Giuliano Padilla MD; Location: [facility] MAIN OR HAND ARTHROPLASTY Right 10/27/2017 Procedure: Right 1st CMC Arthroplasty; Surgeon: Giuliano Padilla MD; Location: [facility] MAIN O R HYSTERECTOMY LOBECTOMY 09/16/13 right lower lobe LUNG BIOPSY 07/21/13 right lower lobe SHOULDER SURGERY SHOULDER SURGERY right shoulder THUMB SURGERY TONGUE SURGERY benign per pt TUNNELED VENOUS PORT PLACEMENT N/A 07/28/2014 Procedure: Port Placement; Surgeon: Chalino Chiu MD; Location: [facility] MAIN OR Allergies: No Known Allergies [...] if needed for sinus dragan estion 0 rzueykm-hukinmuyeh-ormincucd pertussis (BOOSTRIX) 5-2.5-18.5 LF-MCG/0.5 injection Boost oracio [...] non-medical: Not on file Occupational History 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 I appreciate [...] | 2019 | Visit | | [address] | | | | | | [facility] | | | | | | [place] [address] | | | | | | [phone] | | | | | | | | +--------+---------+ + + + + +---------+--------+ + + [...]
--- OUTSIDE RECORDS SUMMARY | ~2019-12-28 | XMS | Encounter Summary ---
Demographics + + + | Address | [address] | | | [place] [address] | + + + | Home Phone [...] [place] | | | | | [address] | | + + + + + Care Team Providers + +------+ + | Care Control Clerk Repairs Name | Role | Phone | + [...] + + | 06/09/ | Office | [facility] [place] | [place], | Pulmonary nodule | | 2013 | Visit | PULMONARY [address] | Ayana Looney MD | (Primary Dx); | | | | [place], | | Rheumatoid arthritis | | | | [place] [address] | | ([facility]); Snoring | | | | [phone] | | | +--------+---------+ + + + [...] original. Pulmonary Follow Up Ayana Taylor MD [place] [facility] [address] [place], [address] HPI Thea Carmona is a 68 y.o. [...] did get an appointment to undergo the chuckie lucas study, later this month. She does cough quite a bit, and does produce sputum that she describes as icky, or brownish . Sometimes it is clear. Past Medical History Past Medical History Diagnosis Date COPD (chronic obstructive pulmonary disease) on albuterol Spondylolisthesis of cervical region Spinal stenosis Osteoporosis Depression Pneumonia 2009 hospitalized 5 days Rheumatoid arthritis on prednisone and methotrexate, Dr. 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 High concern for this fungal species, [facility] seems to have limited data for treatment, and that available seems to suggest few medicat ions are very effective. I am going to consult with the ID specialist at [facility] regard ing best approaches, and if we [...] until it can be refilled by her food services director. This may be a blessing given the [...] made to ensure accuracy; however, inadvertent computerized metal cnc operator errors may be pre sent. documented in t his encounter Plan of Treatment +--------+---------+ + + + | Date | Type | Specialty | Care Team | Description | +--------+---------+ + + + | 03/06/ | Office | Rheumatology | Santosh Sumner, | | | 2019 | Visit | | [address] | | | | | | [facility] | | | | | | [place] [address] | | | | | | [phone] | | | | | | | [...]
--- OUTSIDE RECORDS SUMMARY | ~2019-12-28 | XMS | Encounter Summary ---
Demographics + + + | Address | [address] | | | [place] [address] | + + + | Home Phone | | + + + | Preferred Language | Unknown | + + + | Marital Status | | + + + | Adventism Affiliation | Unknown | + + + | Race | Unknown | + + + | Ethnic Group | Unknown | + + + Author + + + | Author | [facility] | | | and [place] | + + + | Organization | [facility] | | | [...] [place] | | | | | [address] | | + + + + + Care Team Providers + +------+ + | Care Steam Shovel Engineer Name | Role | Phone | [...] | | | | squamous | Lokesh Gramajo, | [place] | | | | | cell | MD [address] | [place], [place] | | | | | carcinoma of | [address] | [address] | | | | | lung, right | [address] | Phone: | | | | | (HCC) | [place], | [phone] | | | | | Procedures | [place] [address] | Fax: | | | | | PET CT Skull | Phone: | [phone] | | | | | [facility] | [phone] | | | | | | Thigh | Fax: | | | | | | | [phone] | | +--------+--------+ + + + + [...] | | | | squamous | Lokesh Gramajo, | [place] | | | | | cell | MD [address] | [place], [place] | | | | | carcinoma of | [address] | [address] | | | | | lung, right | [address] | Phone: | | | | | ([facility] | [place], | [phone] | | | | | Procedures | [place] [address] | Fax: | | | | | PET CT Skull | Phone: | [phone] | | | | | Base To Mid | [phone] | | | | | | Thigh | Fax: | | | | | | | [phone] | | +--------+--------+ + + + + Encounter Details +--------+ + + + + | Date | Type | Department | Care Team | Description | +--------+ + + + + | 12/20/ | Hospital | [facility] | Vivian, | Recurrent squamous | | 2015 | Encounter | MED CTR PET SCAN | Lokesh Gramajo MD [address] | cell carcinoma of | | | | [address] [place] | [address] | lung, right (HCC) | | | | [place] [address] | [address] [place], [place] | | | | | [phone] | [id number] | | | | | | | [...] | 2019 | Visit | | [facility] | | | | | | [facility] | | | | | | [place] [address] | | | | | | [phone] | | | | | | | [...]
--- OUTSIDE RECORDS SUMMARY | ~2019-12-28 | XMS | Encounter Summary ---
Demographics + + + | Address | [address] | | | [place] [address] | + + + | Home Phone [...] [place] | | | | | [address] | | + + + + + Care Team Providers + +------+ + | Care Strategic Solutions Consultant Name | Role | Phone [...] | | Services | Medicine and | Failed back | Rocky Horvath MD | Isiah Knox MD | | | Required | Rehabilitatio | syndrome | [address] | | | | n | History of | [address] | [place] | | | | | lumbar | [place], | [place] | | | | | fusion | [place] [address] | [address] Phone: | | | | | Hyperalgesia | Phone: | [phone] | | | | | [address] | [phone] | Fax: | | | | | Procedures | Fax: | [phone] | | | | | [place] OFFICE | [phone] | | | | | | OUTPATIENT | | | | | | | NEW 45 | | | | | | | MINUTES | | | | | | | 05/20- | | | | | | | MODA > | | | | | | | Consult- new | | | | | | | patient to | | | | | | | | | | | | | | Margarita | | | | | | | to discuss | | | | | | | spinal cord | | | | | | | stimulator | | | +--------+ + + + + + Evaluate & Treat (Routine) +--------+ + + + + + | Status | Reason | Specialty | Diagnoses / | Referred By | Referred To | | | | | Procedures | Contact | Contact | +--------+ + + + + + | Closed | Specialty | Neuropsycholo | Diagnoses | Tom, | | | | Services | gy | Failed back | Rocky Horvath MD | PSYCHOLOGICAL | | | Required | | syndrome | [address] | SERVICES OF | | | | | History of | [address] | [place] | | | | | lumbar | [place], | [address] | | | | | fusion | [place] [address] | [place], | | | | | Hyperalgesia | Phone: | [place] [address] | | | | | Procedures | [phone] | Phone: | | | | | 06/08- | Fax: | [phone] | | | | | PEND CALL | [phone] | Fax: | | | | | BACK FROM | | [phone] | | | | | PSYCHOLOGICA | | | | | | | L SERVICES | | | +--------+ + + + + + Reason for Visit +--------+--------+ + | Reason | Onset | Comments | | | Date | | +--------+--------+ + | Other | 05/10/ | | | | 2019 | | +--------+--------+ + Encounter Details +--------+ + + + + | Date | Type | Department | Care Team | Description | +--------+ + + + + | 05/10/ | Telephone | [facility] [place] | Rocky Santos, | Other | | 2019 | | PHYSIATRY [address] | MD [address] | | | | | [address] | [place] | | | | | [place] | [id number] | | | | | [address] | | | | | | [phone] | | | +--------+ + + + [...] this encounter Miscellaneous Notes Telephone Encounter - Indy Littlejohn, Metrology Specialist - 05/10/2019 1:45 PM PSTHas t his patient completed neuropsych yet? She would need that before SCS trial could be ordered. We can see the patient for a consult to discuss SCS treatment but it would be best to get t he ball rolling on the neuropsychology evaluation as that is one of the steps that takes the longest. -message from Bridget. Called to inform Thea Carmona or neuropsychology order. In addition order for Patricia Carmona was placed today.Thea Carmona should have appointment to discuss spinal cord stimulator with Dr.Z. oleary a voicemail message to call our office back. Kira prather signed by Indy Littlejohn Metrology Specialist at 05/10/2019 1:58 PM PSTdocumented in this encounter Plan of Treatment +--------+---------+ + + + | Date | Type | Specialty | Care Team | Description | +--------+---------+ + + + | 03/06/ | Office | Rheumatology | Santosh Sumner, | | | 2019 | Visit | | [address] | | | | | | [address] | | | | | | [place] [address] | | | | | | [phone] | | | | | | | | +--------+---------+ + + + + + +--------+ + + | Name | Type | Priori | Associated Diagnoses | Order Schedule | | | | ty | | | + + +--------+ + + | Neuropsychology, | Outpatient | Routin | Failed back | 1 Occurrences | | External - AMB | Referral | e | syndrome History of | starting 05/10/2019 | | Referral | | | lumbar fusion | until 05/10/2020 | | | | | Hyperalgesia | | + + +--------+ + + | * [facility] [place] | Outpatient | Routin | Failed back | Ordered: 05/10/2019 | | Physiatry - AMB | Referral | e | syndrome History of | | | Referral | | | lumbar fusion | | | | | | Hyperalgesia | | + + +--------+ + + documented as of this encounter Visit Diagnoses + + | Diagnosis | + + | Failed back syndrome - Primary Other unspecified back disorder | + + | History of lumbar fusion | + + | Hyperalgesia Disturbance of skin sensation | + + documented in this encounter"
--- OUTSIDE RECORDS SUMMARY | ~2019-12-28 | XMS | Encounter Summary ---
Demographics + + + | Address | [address] | | | [place] [address] | + + + | Home Phone [...] [place] | | | | | [address] | | + + + + + Care Team Providers + +------+ + | Care Dry Room Attendant Name | Role | Phone | + [...] Description | +--------+--------+ + + + | 05/13/ | Refill | [facility] | Santosh Sumner, | Medication Refill | | 2019 | | RHEUMATOLOGY [address] | PA-C [address] | | | | | [facility] | [facility] | | | | | [place], [place] | [place] [address] | | | | | [address] | [phone] | | | | | [phone] | | | +--------+--------+ + + + [...] this encounter Miscellaneous Notes Telephone Encounter - Duyen Gonsalves Watcher [employer] - 05/13/2019 1:19 PM PSTForma tting of this note might be different from the original. Requested by: Pharmacy Medication Requested: Requested Prescriptions Pending Prescriptions Disp Refills methotrexate 2.5 mg tablet [Pharmacy Med Name: METHOTREXATE 2.5 MG TABLET] 32 tablet 0 Sig: take 8 tablets by mouth every week Last filled: 04/12/2019 Last seen: 02/22/2019 Most recent labs in chart: 02/25/2019 Any RCN: none Next Appt: 05/26/2019 Last Chart Note Stated: The patient returns to the clinic for a follow up appointment. She is on 15mg Methotrexate weekly with 1mg Folic Acid daily and doing well. She is requesting a referral for acupuncture which I sent in. She states the last couple weeks she has noticed a few more aches but states it changes when the weather got colder.She states otherwise her joint pain and stiffness are significant better. We will make no changes and see her michael k in 3 months and update blood work. Last Eye Exam: n/aElectronically signed by Duyen Gonsalves Watcher [employer] at 019 1:23 PM PSTdocumented in this encounter Plan of Treatment +--------+---------+ + + + | Date | Type | Specialty | Care Team | Description | +--------+---------+ + + + | 03/06/ | Office | Rheumatology | Santosh Sumner, | | | 2019 | Visit | | [address] | | | | | | [facility] | | | | | | [place] [address] | | | | | | [phone] | | | | | | | | +--------+---------+ + + + documented as of this encounter Visit Diagnoses Not on filedocumented in this encounter"
--- OUTSIDE RECORDS SUMMARY | ~2019-12-28 | XMS | Encounter Summary ---
Demographics + + + | Address | [address] | | | [place] [address] | + + + | Home Phone [...] [place] | | | | | [address] | | + + + + + Care Team Providers + +------+ + | Care Deployment Manager Name | Role | Phone | + +------+ + | Davis Ivan MD | PCP | | + +------+ + Encounter Details +--------+ + + + + | Date | Type | Department | Care Team | Description | +--------+ + + + + | 09/02/ | Orders Only | [facility] | Adelita Lu MD | Squamous cell | | 2013 | | [facility] | Need updated | carcinoma of lung, | | | | [facility] [address] | address | unspecified | | | | [address] | | laterality (HCC) | | | | [place] [address] | | (Primary Dx) | | | | [phone] | | | +--------+ + + + [...] | 2019 | Visit | | [address] | | | | | | [facility] | | | | | | [place] [address] | | | | | | [phone] | | | | | | | | +--------+---------+ + + + documented as of this encounter Results Comprehensive Metabolic Panel (09/02/2013 [...] 18 | 7 - 18 mg/dL | [facility] | [facility] | | | | | | [facility] - | | | | | | LABORATORY | | + + + + + + | Creatinine | 0.97 | 0.60 - 1.30 | [facility] | | | | | mg/dL | [facility] | | | | | | MEDICAL | | | | | | CENTER - | | | | | | LABORATORY | | + + + + + + | eGFR, | 57 (L)Comment: | >=60 | [facility] | | | non- | GLOMERULAR FILTRATION | mL/min/1.73m2 | [facility] | | | Haitian | RATE,ESTIMATED | | MEDICAL | | | | mL/min/1.38k2Egtd than | | CENTER - | | [...] 3.4 | 3.2 - 5.0 g/dL | [facility] [...] + | [facility] | [address] | [place] | [phone] | | [facility] | | [address] | | | - LABORATORY | | | | + + + + + | [facility] | [address] | [place], [place] | | | [facility] | | [address], [facility] | | | - LABORATORY | | | | + + + + + CBC with Differential (09/02/2013 12:24 PM PDT) + + + + + + | Component | Value | Ref Range | Performed | Pathologist | | | | | At | Signature | + + + + + + | White Blood | 4.1 | 4.0 - 11.0 K/uL | [facility] | | | Cells | | | [facility] | | | | | | MEDICAL | | | | | | CENTER - | | | | | | LABORATORY | | + + + + + + | Red Blood | 4.03 | 3.70 - 5.20 | [...] | | | | g/dL | [facility] | | | | [...] | Basophils | | K/uL | [facility] | | | | [...] [address] | [place] | [phone] | | [facility] | | [address] | | | - LABORATORY | | | | + + + + + | [facility] | [address] | [place], [place] | | | [facility] | | [address], [facility] | | | - LABORATORY | | | | + + + + + documented in this encounter Visit Diagnoses + + | Diagnosis | + + | Squamous cell carcinoma of lung, unspecified laterality (HCC) - Primary | + + documented in this encounter"
--- OUTSIDE RECORDS SUMMARY | ~2019-12-28 | XMS | Encounter Summary ---
Demographics + + + | Address | [address] | | | [place] [address] | + + + | Home Phone [...] [place] | | | | | [address] | | + + + + + Care Team Providers + +------+ + | Care Search Engine Optimization Consultant Name | Role | Phone | [...] + + | 08/07/ | Hospital | [facility] | Adelita Lu MD | Recurrent squamous | | 2015 | Encounter | [facility] | Need updated | cell carcinoma of | | | | [facility] [address] | address | lung, unspecified | | | | [place], | | laterality (HCC); | | | | [place] [address] | | Pulmonary nodules | | | | [phone] | | | +--------+ + + + [...] Summary (AVS) provided. documented in this encounter Miscellaneous Notes Addendum Note - Hiral Dsouza RPH - 08/07/2014 3:59 PM PDTEncounter addended by: Hiral Dsouza RPH on: 08/07/2014 15:59
Documentation filed: [place] Treatment PlanningKira prather signed by Hiral Dsouza RPH at 08/07/2014 3:59 PM PDTdocumented in this encounter Plan of Treatment +--------+---------+ + + + | Date | Type | Specialty | Care Team | Description | +--------+---------+ + + + | 03/06/ | Office | Rheumatology | Santosh Sumner, | | | 2019 | Visit | | [address] | | | | | | [facility] | | | | | | [place] [address] | | | | | | [phone] | | | | | | | [...] + + + | White Blood | 7.5 | 4.0 - 11.0 K/uL | [facility] | | | Cells | | | [facility] | | | | | | MEDICAL | | | | | | CENTER - | | | | | | LABORATORY | | + + + + + + | Red Blood | 4.07 | 3.70 - 5.20 | [...] [address] | [place] | [phone] | | [facility] | | [address] | | | - LABORATORY | | | | + + + + + | [facility] | [address] | [place], [place] | | | [facility] | | [address], [facility] | | | - LABORATORY [...] eGFR, | >60Comment: GLOMERULAR | >=60 | [facility] | | | non- | FILTRATION | mL/min/1.73m2 | [facility] | | | Algerian | RATE,ESTIMATED | | MEDICAL | | | | mL/min/1.64g6Ersp than | | CENTER - | | [...] + | [facility] | [address] | [place] | [phone] | | [facility] | | [address] | | | - LABORATORY | | | | + + + + + | [facility] | [address] | [place], [place] | | | [facility] | | [address], [facility] | | | - LABORATORY [...] | | | | | Intravenous, ONCE, 08/07/14 at | | AM PDT | | [...]
--- OUTSIDE RECORDS SUMMARY | ~2019-12-28 | XMS | Encounter Summary ---
Demographics + + + | Address | [address] | | | [place] [address] | + + + | Home Phone [...] [place] | | | | | [address] | | + + + + + Care Team Providers + +------+ + | Care Accounting Recruiter Name | Role | Phone | + +------+ + | Davis Ivan MD | PCP | | + +------+ + Encounter Details +--------+ + + + + | Date | Type | Department | Care Team | Description | +--------+ + + + + | 01/09/ | Hospital | [facility] | Adelita Lu MD | Squamous cell | | 2013 | Encounter | [facility] | Need updated | carcinoma of lung, | | | | [facility] [address] | address | stage II, right | | | | [address] | | (HCC) (Primary Dx); | | | | [place] [address] | | Squamous cell | | | | [phone] | | carcinoma of lung, | | [...] 01/09/2014 4:19 PM PDT Hem-Onc Progress Note [facility] Patient name:Thea Carmona : 1945 Age: 68 y.o. CSN: [id number] Date of Service: 01/09/2014 Identifying Statement: Thea Carmona is a 68 y.o. female from [facility] with clinical stage II, pathologic stage [...] 2.CT-guided biopsy by interventional radiology at [facility] of the right lung massshows squamous cell [...] by Dr. Beltran , thoracic surgeon [facility] [...] She fariba t to the ER at [facility] with excrutiating arthritis pain. Past Medical History: Past Medical History Diagnosis Date COPD (chronic obstructive pulmonary disease) (HCC) on albuterol Spondylolisthesis of cervical region Spinal stenosis has tried cortisone injections Osteoporosis Depression Pneumonia 2009 hospitalized 5 days Rheumatoid arthritis(714.0) ([facility]) on prednisone and methotrexate, Dr. Lewis, [place] Hyperlipidemia on simvastatin Hypertension on clonidine and lisinopril Hypothyroidism GERD (gastroesophageal reflux disease) Stroke ([facility]) 2006 Stroke ([facility]) 2007 Squamous cell carcinoma of lung ([facility]) 07/2013 MARCE (obstructive sleep apnea) [...] mg by mouth Daily. RESPIRATORY THERAPY SUPPLIES [employer] S9 auto CPAP 5-9 cm H2O. Heater and Humidifier . All necessary supplies. AHI 11.6. Diagnosis Code(s)327.23, also has co morbid hypertension , history of stroke. Length of Need 99 months. Please send order to [facility]. RESPIRATORY THERAPY SUPPLIES [employer] autotitrating CPAP at 5-9 cm H2O [...] a followup CT scan set up in [facility] in 6 month s Followup after that Total time face to face discussion with the patient and family was 20 minutes, more than 5 0% of the time was spent counseling and coordination of care. Adelita Lu MD Portions of this chart may have been created with [employer] voice recognition software. Occasi onal wrong-word or [...] She fariba t to the ER at [facility] with excrutiating arthritis pain. They gave her [...] | 2019 | Visit | | [address] | | | | | | [facility] | | | | | | [place] [address] | | | | | | [phone] | | | | | | | [...] non- | FILTRATION | mL/min/1.73m2 | [facility] | | | [place] | RATE,ESTIMATED | | MEDICAL | | | | mL/min/1.78t9Nlks than | | CENTER - | | [...] | 8.9 | 8.3 - 10.5 | [facility] | | | | | mg/dL | [facility] | | | | | | MEDICAL | | | | | | CENTER - | | | | | | LABORATORY | | + + + + + + | Albumin | 3.1 (L) | 3.2 - 5.0 g/dL | [facility] | | | | | | [facility] | | | | | | [...] + + | Performing | Address | City/State/[facility] | Phone Number | | Organization | | | | + + + + + | [facility] | [address] | [place] | [phone] | | [facility] | | [address] | | | - LABORATORY | | | | + + + + + | [facility] | [address] | [place], [place] | | | [facility] | | [address], [facility] | | | - LABORATORY | | | | + + + + + CBC with Differential (01/09/2014 2:29 PM PDT) + + + + + + | Component | Value | Ref Range | Performed | Pathologist | | | | | At | Signature | + + + + + + | White Blood | 5.5 | 4.0 - 11.0 K/uL | [facility] | | | Cells | | | [facility] | | | | | | MEDICAL | | | | | | CENTER - | | | | | | LABORATORY | | + + + + + + | Red Blood | 4.22 | 3.70 - 5.20 | [...] + | [facility] | [address] | [place] | [phone] | | [facility] | | [address] | | | - LABORATORY | | | | + + + + + | [facility] | [address] | [place], [place] | | | [facility] | | [address] | | | - [...]
--- OUTSIDE RECORDS SUMMARY | ~2019-12-28 | XMS | Encounter Summary ---
Demographics + + + | Address | [address] | | | [place] [address] | + + + | Home Phone [...] [place] | | | | | [address] | | + + + + + Care Team Providers + +------+ + | Care Construction Carpenter Name | Role | Phone | + [...] | Specialty | Cardiothoraci | Diagnoses | Tabitha | | | | Imelda | c Surgery | Squamous | MD Adelita | | | | Required | | cell | Need | | | | | | carcinoma | updated | | | | | | lung (HCC) | address | | +--------+ + + + + [...] | | Required | | cell | Need | Oncology [address] | | | | | carcinoma | updated | [address] | | | | | lung (HCC) | address | [place], | | | | | | | [place] [address] | | | | | | | Phone: | | | | | | | [phone] | | | | | | | Fax: | | | | | | | [phone] | +--------+ + + + + + Encounter Details +--------+ + + + + | Date | Type | Department | Care Team | Description | +--------+ + + + + | 08/17/ | Hospital | [facility] | Adelita Lu MD | Squamous cell | | 2013 | Encounter | [facility] | Need updated | carcinoma lung (HCC) | | | | [facility]Y [facility]IN[facility] [address] | address | (Primary Dx); COPD | | | | [address] | | (chronic obstructive | | | | [place] [address] | | pulmonary disease); | | | | [phone] | | Rheumatoid | | | | [...] Pt s tates when she saw DR. Blandon she had a nose bleed that would [...] other, Mirza. 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 Denies history. Denies previous radi ation or chemotherapy. Denies history of chemical exposure. Nurse note: pt had a chest xray ordered by Dr. Ivan over a year ago which showed a whi te area on her lung which was concerning. He referred her to Dr. Blandon who thought it w as a fungus but could not find a medication she could place her on that would not interact w ith the meds she is currently taking. Dr. Blandon has ordered several chest xrays to terence ayala the area but when it started to grow she sent her for a biopsy and PET scan. She was the n referred to Dr. Lu for further evaluation. documented in this encounter Consult Notes ESTELITA SCAN CAPRI - 09/16/2013 12:00 AM PDT 14 2:45 PM PDTAdelita Lu MD - 08/17/2013 12:47 PM PDT Patient name:Thea Carmona : 1945 Age: 68 y.o. CSN: [id number] Requesting/Referring Physician : Aayna Blandon Date of Service: 08/17/2013 Identifying Statement: Thea Carmona is a 68 y.o. female from [facility] clinical stage II non-small cell lung cancer (squamous cell). Chief Complaint/HPI: Patient is here for recommendations for her clinical stage II non-smal l cell lung cancer with right hilar lymph node involvement. All reports and images of her p revious CT scans and PET CT scans were reviewed personally. All notes from Dr. blandon w ere reviewed. Initially seen by Dr. blandon in March 2013 for a pulmonary nodule, right lower lobe m easuring 1.9 cm, biopsy was considered risky . Nodule was considered likely infectious/infl ammatory as the patient was immunosuppressed , on methotrexate for rheumatoid arthritis. 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 Was followed with repeat CT scans and PET scan. Repeat CT scan showed growth of the comple x cavitary mass in the right lung and grew serially in maximal dimension from 2.[address]-guided biopsy by interventional radiology at [facility] of the right lung massshows squamous cell carcinoma, moderately differentiated positive for p 40 and negative for TTF-1. PET/CT scan 08/11/2013 showed increased size of the right lung lesion with a maximum SUV of 6.26. In the right hilar region, a 0.9 cm lymph node was present with maximum SUV of 4.46 c onsistent with metastatic disease Current Review of Systems: Constitutional: No fevers, chills, night sweats present,no weight loss, fatigue. Appetite is good ENMT: No hearing problems, tinnitus, nasal congestion, discharge. No sore throat, difficul ty swallowing. Vision: No diplopia, changes in vision. Respiratory: Shortness of breath on exertion. Cardiac: no chest pain, palpitations or lightheadedness. GI: No abdominal pain or nausea, vomiting, diarrhea. Heartburn present : No dysuria or difficulty voiding. Musculoskeletal: Joint pain present secondary to rheumatoid arthritis. History of cervical spinal stenosis and back pain secondary to suspected lumbar spinal stenosis Neurologic: Some numbness in bilateral toes. Psychiatric: History of depression .no anxiety. Skin: Bruises present in bilateral arms secondary to steroids and aspirin, Plavix Endocrine: No polyuria, polydipsia. Hematologic: Bruises on skin, easy bleeding secondary to aspirin and Plavix Past Medical History: Past Medical History Diagnosis Date COPD (chronic obstructive pulmonary disease) ([facility]) on albuterol Spondylolisthesis of cervical region Spinal stenosis has tried cortisone injections Osteoporosis Depression Pneumonia 2009 hospitalized 5 days Rheumatoid arthritis(714.0) ([facility]) [facility]one [facility]ate[facility] Hyperlipidemia on simvastatin Hypertension on clonidine and lisinopril Hypothyroidism GERD (gastroesophageal reflux disease) Stroke ([facility]) 2006 Stroke ([facility]) 2007 Past Surgical History: Past Surgical History Procedure Date Hysterectomy Cholecystectomy Cervical spine surgery 2013 Bladder suspension Shoulder surgery Thumb surgery Shoulder surgery right shoulder Tongue surgery benign per pt Lung biopsy 07/21/13 right lower lobe Social History: History Social History Marital Status: Spouse Name: N/A Number of Children: N/A Years of Education: N/A 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 Social History Main Topics Smoking status: Former Smoker -- 1.0 packs/day for 50 years Types: Cigarettes Quit date: 08/21/2012 Smokeless tobacco: Never Used Comment: using e cigarettes Alcohol Use: No Comment: pt states she was an alcoholic for 40 years but quit in 05/2012 Drug Use: No Comment: marijuana in the remote past Sexually Active: Not on file Other Topics Concern Not on file Social History Narrative Lives: in [place] With: aloneG[place] up: [place] previously lived in: [place]posure [place] toxic chemicals: noExposure to asbestos: noExposure to tuberculosis: no Has had a PPD or Q uantiferon before: noHas pets at home: cat and a dog Has ever owned birds: yes, 5 years ago Other animal exposures: noHobbies: used to jaja, crossword puzzles, walking her dog Family History: Family History Problem Relation Age of Onset COPD Sister Tobacco Use Sister quit 1 year ago Cancer Father stomach Lung cancer Brother Tobacco Use Brother Alcohol abuse Brother Allergies: No Known Allergies Medications : Patient's Medications New Prescriptions No medications on file Previous Medications ALBUTEROL 2.5 MG/3 ML NEBULIZER SOLUTION Take 2.5 mg by nebulization every 6 hours as n eeded. ASPIRIN 81 MG TABLET Take 81 mg by mouth Daily. CHOLECALCIFEROL (VITAMIN D-3) 1,000 UNITS CAPSULE Take 1,000 Units by mouth Daily. CLONIDINE (CATAPRES) 0.1 MG TABLET Take 0.1 mg by mouth 2 times daily. CLOPIDOGREL (PLAVIX) 75 MG TABLET Take 75 mg by mouth Daily. FERROUS SULFATE (IRON) 28 MG TABS Take 28 mg by mouth Daily. FOLIC ACID 1 MG TABLET Take 1 mg by mouth Daily. LEVOTHYROXINE (SYNTHROID) 100 MCG TABLET Take 75 mcg by mouth every morning (before deshaun akfast). LISINOPRIL (PRINIVIL, ZESTRIL) 10 MG TABLET Take 10 mg by mouth 3 times daily. MAGNESIUM 100 MG CAPS Take by mouth Daily. METHOTREXATE 2.5 MG TABLET Take 25 mg by mouth Once a week. OMEPRAZOLE (PRILOSEC) 20 MG CAPSULE Take 20 mg by mouth Twice daily breakfast/Bedtime. OXYCODONE-ACETAMINOPHEN (PERCOCET) 10-325 MG PER TABLET Take 1 tablet by mouth every 3 hours as needed. PREDNISONE (DELTASONE) 5 MG TABLET Take 10 mg by mouth Daily. SIMVASTATIN (ZOCOR) 40 MG TABLET Take 40 mg by mouth nightly. TIZANIDINE (ZANAFLEX) 4 MG TABLET Take 4 mg by mouth See Admin Instructions. 2 tabs twi ce daily VENLAFAXINE (EFFEXOR) 75 MG TABLET Take 37.5 mg by mouth 2 times daily. Modified Medications No medications on file Discontinued Medications DIAZEPAM (VALIUM) 2 MG TABLET Take 2 mg by mouth Daily. MORPHINE (MSIR) 30 MG TABLET Take 10 mg by mouth every 4 hours as needed. Physical Exam: Vitals:Temp: [36.4 C (97.5 F)] 36.4 C (97.5 F) Pulse: [65] 65 Resp: [20] 20 BP: (113)/(65) 113/65 mmHg Gen.: Performance status ECoG 2 appears older than her stated age, appears well not in jigar arent distress. Uses a cane to walk Ears: Hearing grossly intact. Eyes: PERRLA, EOMI, conjunctiva clear, sclera anicteric. HEENT: Oropharynx clear. Neck: Supple without any masses or thyromegaly. Chest: Clear to auscultation. Cardiac: S1-S2 present regular rate rhythm. No murmur rub gallop. Abdomen: Soft, nontender, bowel sounds positive. No hepatosplenomegaly. Lymphatic: No adenopathy in cervical, supraclavicular or axillary regions. Extremities: No edema, cyanosis, clubbing. Musculoskeletal: No deformities. Skin: Multiple bruises on bilateral upper extremity Neurologic: Voice articulate. Station and gait within normal limits. Exam is grossly symm etric. Psychiatrc: Good mood, cognition and memory are grossly intact. LABORATORY DATA: No results found for this or any previous visit (from the past 24 hour(s) ). IMAGING: Available Labs and Images were obtained from outside records and reviewed puneet estherrajeev PET/CT scan: 08/11/2013: Again visualized is the mixed solid and cystic lesion in the superior segment of the right lower lung lobe that has increased in size compared to the prior CT scan from 06/09/2013 and currently measures 3.1 x 2.1 cm (CT image 56, PET image 144). Maximum SUV is 6.26, consistent with the patient's history of squamous cell carcinoma. In the right hilar region, a 0.9 cm lymph node is present (CT image 57, PET image 143) with maximum SUV of 4.46, most consistent with metastatic disease CT lung 06/09/2013: A partially cavitary mass is again seen in the superior segment of the right lower lobe. The cavitary component has decreased in size, while the solid portions of the mass have inc reased in prominence, now measuring 1.5 x 1.5 x 3.0 cm where previous measurements were 1.2 x 1.2 x 2 .5 cm. Margins remain spiculated. IMPRESSION: 68-year-old lady with clinical stage II non-small cell lung cancer (squamous cell) with PET avid right hilar lymph node PLAN: 1. Pulmonary function test in evaluation for surgical options. Refer to Dr. José Miguel Mace [facility] for possible mediastinoscopy and resection o f clinical stage II non-small cell lung cancer. If she is not a surgical candidate or has mediastinal lymph node involvement, then she woul d be clinically upstaged to stage III and would be a candidate for combined chemoradiation. Discussed all options including option for combined chemoradiation in detail which will be followed by 2 cycles of systemic chemotherapy. She would be at an increased risk of infections especially as she is immunosuppressed on me thotrexate for rheumatoid arthritis Referral to radiation oncology Dr. Banegas in [facility] Also considered possibility of metastatic disease considering a new 3 mm nodule in the righ t lung and a stable 3 mm nodule in the left lung has seen by the most recent CT scan Adelita Lu MD Portions of this chart may have been created with [employer] voice recognition software. Occasi onal wrong-word or sound-alike substitutions may have occurred due to the inherent guzman itations of voice recognition software. Please read the chart carefully and recognize, using context, where these substitutions have occurred. documented in this enc ounter Miscellaneous Notes Miscellaneous - ONBASE SCAN [facility] - 08/22/2013 12:00 AM PDT iscellaneous - ONBASE SCAN [facility] - 08/22/2013 12:00 AM PDTEle ctronically signed by Capri Hodges at 08/22/2013 8:39 AM PDTMiscellaneous - ONBASE SCAN [facility] T - 08/22/2013 12:00 AM PDT d ocumented in this encounter Plan of Treatment +--------+---------+ + + + | Date | Type | Specialty | Care Team | Description | +--------+---------+ + + + | 03/06/ | Office | Rheumatology | Santosh Sumner, | | | 2019 | Visit | | [address] | | | | | | [facility] | | | | | | [place] [address] | | | | | | [phone] | | | | | | | [...] +--------+ + + | AMB REFERRAL TO [facility] | Outpatient | Routin | Squamous cell [...]
--- OUTSIDE RECORDS SUMMARY | ~2019-12-28 | XMS | Encounter Summary ---
Demographics + + + | Address | [address] | | | [place] [address] | + + + | Home Phone [...] [place] | | | | | [address] | | + + + + + Care Team Providers + +------+ + | Care Dyer And Washer Name | Role | Phone | + [...] Malignant | Jimmy C DO | [address] | | | | | neoplasm of | [address] | [place], | | | | | lower lobe | [address] | [place] [address] | | | | | of right | [place], | Phone: | | | | | lung (HCC) | [place] [address] | [phone] | | | | | Procedures | Phone: | Fax: | | | | | CT Chest w | [phone] | [phone] | | | | | Contrast | Fax: | | | | | | | [phone] | | +--------+--------+ + + + + [...] right lung (HCC) | | | | [address] [place], | [address] | (Primary Dx) | | | | [place] [address] | | | | | | [phone] | | | +--------+ + + + [...] | 2019 | Visit | | [address] | | | | | | [facility] | | | | | | [place] [address] | | | | | | [phone] | | | | | | | [...] August 29, 2014, June 08, 2014 (from [facility]), and | | June 09, 2013.TECHNIQUE: Axial [...] ST. | [address] | [place], [place] | [phone] | | [facility] | | [address] | | | - LABORATORY | | [...] | | non- | | mL/min/1.73m2 | [facility] | | | [place] | | | MEDICAL | | | [...] [address] | [place] | [phone] | | [facility] | | [address] | | | - LABORATORY | | | | + + + + + documented in this encounter Visit Diagnoses + + | Diagnosis | + + | Malignant neoplasm of lower lobe of right lung (HCC) - Primary | + + documented in this encounter"
--- OUTSIDE RECORDS SUMMARY | ~2019-12-28 | XMS | Encounter Summary ---
Demographics + + + | Address | [address] | | | [place] [address] | + + + | Home Phone [...] [address] | | | | | [address] | | + + + + + Care Team Providers + +------+ + | Care Defect Cutter Name | Role | Phone | + +------+ + | Davis Ivan MD | PCP | | + +------+ + Reason for Visit +--------+--------+ + | Reason | Onset | Comments | | | Date | | +--------+--------+ + | Other | 06/20/ | increased symptoms | | | 2013 | | +--------+--------+ + Encounter Details +--------+ + + + + | Date | Type | Department | Care Team | Description | +--------+ + + + + | 06/20/ | Telephone | [facility] [place] | [place], | Other (increased | | 2013 | | PULMONARY [address] | Ayana Looney MD | symptoms) | | | | [place], | | | | | | [place] [address] | | | | | | [phone] | | | +--------+ + + + [...] this encounter Miscellaneous Notes Telephone Encounter - Sara Evans RN - 06/20/2013 1:42 PM Anna Marie called stating t hat she has pain in her right lung that hurts to breath and move. Advised that as Dr Kat morgan is out she should call her PCP or go to Urgent Care. Okay per patient.Electronically sig angel by Sara Evans RN at 06/20/2013 1:44 PM PSTdocumented in this encounter Plan of Treatment +--------+---------+ + + + | Date | Type | Specialty | Care Team | Description | +--------+---------+ + + + | 03/06/ | Office | Rheumatology | Santosh Sumner, | | | 2019 | Visit | | [address] | | | | | | [facility] | | | | | | [place] [address] | | | | | | [phone] | | | | | | | | +--------+---------+ + + + documented as of this encounter Visit Diagnoses Not on filedocumented in this encounter"
--- OUTSIDE RECORDS SUMMARY | ~2019-12-28 | XMS | Encounter Summary ---
Demographics + + + | Address | [address] | | | [place] [address] | + + + | Home Phone [...] [address] | | | | | [address] | | + + + + + Care Team Providers + +------+ + | Care Manufacturing Machine Operator Name | Role | Phone | + +------+ + | Caitlin Chino MD | PCP | | + +------+ + Reason for Visit + +--------+ + | Reason | Onset | Comments | | | Date | | + +--------+ + | Medication Refill | 12/18/ | | | | 2019 | | + +--------+ + Encounter Details +--------+--------+ + + + | Date | Type | Department | Care Team | Description | +--------+--------+ + + + | 12/18/ | Refill | [facility] | Deborah Bucio | Medication Refill | | 2019 | | CARDIOLOGY [place], Corporate Relations Director | | | | | [address] | | | | | | [place] | | | | | | [address] | | | | | | [phone] | | | +--------+--------+ + + + [...] | 2019 | Visit | | [address] | | | | | | [facility] | | | | | | [place] [address] | | | | | | [phone] | | | | | | | | +--------+---------+ + + + documented as of this encounter Visit Diagnoses Not on filedocumented in this encounter"
--- OUTSIDE RECORDS SUMMARY | ~2019-12-28 | XMS | Encounter Summary ---
Demographics + + + | Address | [address] | | | [place] [address] | + + + | Home Phone [...] [address] | | | | | [address] | | + + + + + Care Team Providers + +------+ + | Care Transmission Mechanic Name | Role | Phone | + +------+ + | Davis Ivan MD | PCP | | + +------+ + Reason for Visit + +--------+ + | Reason | Onset | Comments | | | Date | | + +--------+ + | Medication Refill | 09/19/ | | | | 2014 | | + +--------+ + Encounter Details +--------+--------+ + + + | Date | Type | Department | Care Team | Description | +--------+--------+ + + + | 09/19/ | Refill | [facility] | Adelita Lu MD | Medication Refill | | 2014 | | [facility] | Need updated | | | | | [facility]COLOGY CLINIC [address] | address | | | | | [address] | | | | | | [place] [address] | | | | | | [phone] | | | +--------+--------+ + + + [...] | 2020 | Visit | | [address] | | | | | | [place] | | | | | | [place] [address] | | | | | | [phone] | | | | | | | | +--------+---------+ + + + documented as of this encounter Visit Diagnoses + + | Diagnosis | + + | Squamous cell lung cancer, unspecified laterality (HCC) - Primary | + + documented in this encounter"
--- OUTSIDE RECORDS SUMMARY | ~2019-12-28 | XMS | Encounter Summary ---
Demographics + + + | Address | [address] | | | [place] [address] | + + + | Home Phone [...] [place] | | | | | [address] | | + + + + + Care Team Providers + +------+ + | Care Principal Quality Engineer Name | Role | Phone | + +------+ + | Davis Ivan MD | PCP | | + +------+ + Encounter Details +--------+ + + + + | Date | Type | Department | Care Team | Description | +--------+ + + + + | 09/01/ | Orders Only | [facility] | Jimmy Banegas DO | | | 2014 | | [facility] | [address] | | | | | ONCOLOGY [address] | [place] | | | | | [place], | [address] | | | | | [place] [address] | | | | | | [phone] | | | +--------+ + + + [...] | 2019 | Visit | | [address] | | | | | | [place] | | | | | | [place] [address] | | | | | | [phone] | | | | | | | | +--------+---------+ + + + documented as of this encounter Visit Diagnoses Not on filedocumented in this encounter"
--- OUTSIDE RECORDS SUMMARY | ~2019-12-28 | XMS | Encounter Summary ---
Demographics + + + | Address | [address] | | | [place] [address] | + + + | Home Phone [...] | Organization | [facility] | | | and [place] | + [...] [place] | | | | | [address] | | + + + + + Care Team Providers + +------+ + | Care Senior Net Software Developer Name | Role | Phone | [...] + + | 08/28/ | Hospital | [facility] | Adelita Lu MD | Recurrent squamous | | 2015 | Encounter | MED CTR CHEMO | Need updated | cell carcinoma of | | | | INFUSION [address] | address | lung, unspecified | | | | [place], | | laterality (HCC); | | | | [place] [address] | | Pulmonary nodules | | | | [phone] | | | +--------+ + + + [...] + documented as of this encounter Progress Liseth Cody RN - 08/28/2014 1:08 PM PDTPatient discharged in satisfactory condition . Discharged ambulatory. With family. To home. Future appointments and After Visit Summary (AVS) provided. documented in this encounter Miscellaneous Notes Addendum Note - Delia Manuel RN - 08/28/2014 2:49 PM PDTEncounter addended by: Jinny Manuel RN on: 08/28/2014 14:49
Documentation filed: Charges VNElectronically s igned by Delia Manuel RN at 08/28/2014 2:49 PM PDTdocumented in this encounter Plan of [...] | | | | | [place] [address] | | | | | | [phone] | | | | | | | | +--------+---------+ + + + documented as of this encounter Procedures + +--------+ + + + | Procedure Name | Priori | Date/Time | Associated Diagnosis | Comments | | | ty | | | | + +--------+ + + + | CBC WITH | STAT | 08/28/2014 | Recurrent squamous | Results for this | | DIFFERENTIAL | | 9:26 AM | cell carcinoma of | procedure are in the | | | | PDT | lung, unspecified | results section. | | | | | laterality (HCC) | | | | | | Pulmonary nodules | | + +--------+ + + + | COMPREHENSIVE | STAT | 08/28/2014 | Recurrent squamous | Results for this | | METABOLIC PANEL | | 9:26 AM | cell carcinoma of | procedure are in the | | | | PDT | lung, unspecified | results section. | | | | | laterality (HCC) | | | | | | Pulmonary nodules | | + +--------+ + + + documented in this encounter Results CBC with Differential (08/28/2014 9:26 AM PDT) + + + + + + | Component | Value | Ref Range | Performed | Pathologist | | | | | At | Signature | + + + + + + | White Blood | 4.2 | 4.0 - 11.0 K/uL | [facility] | | | Cells | | | [facility] | | | | | | [facility] | | | | | | CENTER - | | | | | | LABORATORY | | + + + + + + | Red Blood | 3.67 (L) | 3.70 - 5.20 | [facility] | | | Cells | | M/uL | [facility] | | | | | | MEDICAL | | | | | | CENTER - | | | | | | LABORATORY | | + + + + + + | Hemoglobin | 11.3 (L) | 11.5 - 16.0 | [facility] | | | | | g/dL | [facility] | | | | | | MEDICAL | | | | | | CENTER - | | | | | | LABORATORY | | + + + + + + | Hematocrit | 35.1 | 34.0 - 47.0 % | [facility] | | | | | | [facility] | [facility] | [facility] | | | | | | C[facility] - | | | | | | LABORATORY | | + + + + + + | MCV | 95.6 | 83.0 - 101.0 fL | [facility] | | | | | | [facility] | [facility] | [facility] | [facility] | | | | | | C[facility] - | | | | | | LABORATORY | | + + + + + + | MCH | 30.8 | 28.0 - 35.0 pg | [facility] [...] + + + + | RDW-CV | 20.0 (H) | <15.0 % | [facility] | | | | | [facility] | [facility] | [facility] | | | | | | CENTER - | | | | | | LABORATORY | | + + + + + + | Platelet | 170 | 140 - 440 K/uL | [facility] | | | Count | | | [facility] | | | [facility] | [facility] | | | | | | CENTER - | | | | | | LABORATORY | | + + + + + + | MPV | 8.0 | fL | [facility] | | | | | [facility] | [facility] | [facility] | | | | | | CENTER - | | | | | | LABORATORY | | + + + + + + | % | 68.5 | 45.0 - 82.0 % | [facility] | | | Neutrophils | | | [facility] | | | | | | [facility] | | | | | | CENTER - | | | | | | LABORATORY | | + + + + + + | % | 21.5 | 20.0 - 45.0 % | [facility] | | | Lymphocytes | | | [facility] | | | | | | [facility] | | | | | | CENTER - | | | | | | LABORATORY | | + + + + + + | % Monocytes | 7.7 | 4.0 - 12.0 % | [facility] [...] + + + | % Basophils | 1.1 (H) | 0.0 - 1.0 % | [facility] | | | | | | [facility] | | | | | | [facility]ICAL | | | | | | CENTER - | | | | | | LABORATORY | | + + + + + + | Absolute | 2.90 | 1.80 - 8.50 | [facility] | | | Neutrophils | | K/uL | [facility] | | | | | | [facility]ICAL | | | | | | CENTER - | | | | | | LABORATORY | | + + + + + + | Absolute | 0.90 | 0.60 - 3.20 | [facility] | [...] + | [facility] | [address] | [place] | [phone] | | [facility] | | [address] | | | - LABORATORY | | | | + + + + + Comprehensive Metabolic Panel (08/28/2014 9:26 AM PDT) + + + + + + | Component | Value | Ref Range | Performed | Pathologist | | | | | At | Signature | + + + + + + | Na | 139 | 136 - 149 | [facility] | [...] + + + + | Cl | 108 | 98 - 109 mmol/L | [facility] [...] + + + + | Glucose | 103 | 70 - 109 mg/dL | [facility] | | | | | | [facility] | | | | [facility] | MEDICAL | | | | | | CENTER - | | | | | | LABORATORY | | + + + + + + | BUN | 16 | 7 - 18 mg/dL | [facility] | | | | | | [facility] | | | | | | MEDICAL | | | | | | CENTER - | | | | | | LABORATORY | | + + + + + + | Creatinine | 0.91 | 0.60 - 1.30 | [facility] | [...] mL/min/1.73m2 | [facility] | | | [place] | RATE,ESTIMATED | | MEDICAL | | | | mL/min/1.46x1Sgjw than | | CENTER - | | [...] + + + + | Calcium | 8.8 | 8.3 - 10.5 | [facility] | | | | | mg/dL | [facility] | | | | | | MEDICAL | | | | | | CENTER - | | | | | | LABORATORY | | + + + + + + | Albumin | 3.1 (L) | 3.2 - 5.0 g/dL | [facility] | | | | | | [facility] | | | | | | [...] + + + + | Alkaline | 51 | 40 - 110 U/L | [facility] [...] + + + + | BUN/Creatin | 17.6 [...] + + + + + | [facility] | [address] | [place] | [phone] | | [facility] | | [address] | | | - LABORATORY | | [...] | + +---------+ +--------+-------+------+ | CARBOplatin (PARAPLATIN) 180 mg | New Bag | 08/29/19 | 180 mg | 536 | | | in sodium chloride 0.9% 250 mL | | 15 12:06 | | mL/hr | | | chemo infusion 180 mg (Target | | PM PDT | | | | | AUC = 2), Intravenous, Administer | | | | | | | over 30 Minutes, ONCE, Mon | | | | | | | 08/28/14 at 1215, For 1 dose, AUC | | | | | | | 2 = 177.4 mg; rounded to 180 mg | | | | | | | per rounding protocol Dose | | | | | | | calculated per SWOG calculation | | | | | | | per Dr. Lu request | | | | | | | Chemotherapy: This is a high risk | | | | | | | medication., | | | | | | + +---------+ +--------+-------+------+ +---+---+ | | | +---+---+ + +-------+ +-------+---+---+ | diphenhydrAMINE (BENADRYL) | Given | 08/29/19 | 25 mg | | | | injection 25 mg 25 mg, | | 15 10:41 | | | | | Intravenous, ONCE, 08/28/14 at | | AM PDT | | | | | 1045, For 1 dose, Administer 30 | | | | | | | minutes prior to PACLitaxel ., | | | | | | + +-------+ +-------+---+---+ +---+---+ | | | +---+---+ + +-------+ +-------+---+---+ | famotidine (PEPCID) injection | Given | 08/29/19 | 20 mg | | | | 20 mg 20 mg, Intravenous, ONCE, | | 15 10:41 | | | | | 08/28/14 at 1045, For 1 dose, | | [...] 100 units/mL flush 500 | Given | 08/29/19 | 500 | | | | Units 500 Units (5 mL), | | 15 12:43 | Units | | | | Intracatheter, PRN, Line Care, | | PM PDT | | | | | Starting 08/28/14 at 1029 | | | | | | + +-------+ +-------+---+---+ +---+---+ | | | +---+---+ + +---------+ +-------+--------+---+ | PACLitaxel (TAXOL) 81 mg in | New Bag | 08/29/19 | 81 mg | 263.5 | | | sodium chloride 0.9% 250 mL chemo | | 15 11:04 | | mL/hr | | | infusion 81 mg (rounded from | | AM PDT | | | | | 80.1 mg = 45 mg/m2 | | | | | | | 1.78 m2 Treatment plan recorded | | | | | | | BSA), Intravenous, Administer | | | | | | | over 1 Hours, ONCE, 08/28/14 | | | | | | | [...] (ALOXI) 0.25 mg, | New Bag | 08/29/19 | | 209.3 | | | dexamethasone (DECADRON) 8 mg in | | 15 10:44 | | mL/hr | | | sodium chloride 0.9% 50 mL IVPB | | AM PDT | | | | | Intravenous, Administer over 16 | | | | | | | Minutes, ONCE, 08/28/14 at | | | | | | | 1045, For 1 dose | | | | | | + +---------+ +---+--------+---+ +---+---+ | | | +---+---+ documented in this encounter"
--- OUTSIDE RECORDS SUMMARY | ~2019-12-28 | XMS | Encounter Summary ---
Demographics + + + | Address | [address] | | | [place] [address] | + + + | Home Phone [...] [place] | | | | | [address] | | + + + + + Care Team Providers + +------+ + | Care Photoengraving Supervisor Name | Role | Phone | + +------+ + | Davis Ivan MD | PCP | | + +------+ + Encounter Details +--------+ + + + + | Date | Type | Department | Care Team | Description | +--------+ + + + + | 09/14/ | Hospital | [facility] | Adelita Lu MD | Squamous cell | | 2013 | Encounter | MED CTR MEDICAL | Need updated | carcinoma lung, | | | | ONCOLOGY CLINIC [address] | address | right (HCC) (Primary | | | | [address] [place] | | Dx); Acute | | | | [place] [address] | | sinusitis | | | | [phone] | | | +--------+ + + + [...] states that she is having surgery in [place] with Dr. Mace on 09/16/13. REVIEW OF SYSTEMS Constitutional:Energy is low, just occasional spurts. Denies high fevers, shaking chills, a norexia, nausea, vomiting, weight loss. Report night sweats every night. Sometimes during the day she has sweats. Ear, Nose, Mouth, Throat: Denies odynophagia, dysphagia. Occasional Left ear Tinnitus. Sh suzan has a sore throat today. Cardiovascular: Complains [...] bruis es. Pain: 8-9/10 joint aching. Adelita Dias MD - 09/14/2013 9:25 AM PDT Hem-Onc Progress Note [facility] Patient name:Thea Carmona : 1945 Age: 68 y.o. CSN: [id number] Date of Service: 09/14/2013 Identifying Statement: Thea Carmona is a 68 y.o. female from [facility] with clinical stage II non-small cell lung [...] biopsy by interventional radiology at [facility] of the right lung massshows [...] 7 days sent to pharmacy. Thoracic surgery [facility] records reviewed. Results the brain MRI discussed with her which did show presence of mastoiditis Total time face to face discussion with the patient and family was 25 minutes, more than 50 % of the time was spent counseling and coordination of care. Adelita Lu MD Portions of this chart may have been created with [employer] voice recognition software. Occasi onal wrong-word or sound-alike substitutions may have occurred due to the inherent guzman itations of voice recognition software. Please read the chart carefully and recognize, using context, where these substitutions have occurred. documented in this enc ounter Miscellaneous Notes Addendum Note - Melony Dhaliwal RN - 09/14/2013 2:50 PM PDTEncounter addended by: Misti Dhaliwal RN on: 09/14/2013 14:50
Documentation filed: Charges VNElectronically sig angel by Melony Dhaliwal RN at 09/14/2013 2:50 PM PDTdocumented in this encounter Plan of Treatment +--------+---------+ + + + | Date | Type | Specialty | Care Team | Description | +--------+---------+ + + + | 03/06/ | Office | Rheumatology | Santosh Sumner, | | | 2019 | Visit | | [address] | | | | | | [address] [address] | | | | | | [place] [address] | | | | | | [phone] | | | | | | | | +--------+---------+ + + + documented as of this encounter Visit Diagnoses + + | Diagnosis | + + | Squamous cell carcinoma lung, right (HCC) - Primary | + + | Acute sinusitis Acute sinusitis, unspecified | + + documented in this encounter
--- OUTSIDE RECORDS SUMMARY | ~2019-12-28 | XMS | Encounter Summary ---
Demographics + + + | Address | [address] | | | [place] [address] | + + + | Home Phone [...] | [facility] | | | and [place] | + + + | Organization | [facility] | | [...] [place] | | | | | [address] | | + + + + + Care Team Providers + +------+ + | Care Shipping Packer Name | Role | Phone | [...] | | cell | Ayana B, | [place] | | | | | carcinoma | MD [address] | [place] | | | | | lung (HCC) | [address] | [address] | | | | | Procedures | [place], | Phone: | | | | | PET CT Skull | [place] [address] | [phone] | | | | | Base To Mid | | Fax: | | | | | Thigh | | [phone] | +--------+--------+ + + + + Reason for Visit + + + | Reason | Comments | + + + | Follow-up | | + + + Encounter Details +--------+---------+ + + + | Date | Type | Department | Care Team | Description | +--------+---------+ + + + | 08/02/ | [facility] | Offenstein, | Squamous cell | | 2013 | Visit | PULMONARY [address] | Ayana Looney MD | carcinoma lung (HCC) | | | | [place], | | (Primary Dx); COPD | | | | [place] [address] | | (chronic obstructive | | | | [phone] | | pulmonary disease); | | | [...] in this encounter Patient Instructions Patient Instructions Offenstein, Ayana B, MD - 08/02/2013 11:13 AM PSTWe will schedule PE T scan, and then see you back to review results. Hold aspirin and Plavix until nosebleeding dealt with. documented in this encounter Progress Notes Ayana Taylor MD - 08/02/2013 10:53 AM PSTFormatting of this note might be differe nt from the original. Pulmonary Follow Up MD [place] [facility] [address] [place], [address] HPI Thea Carmona is a 68 y.o. female patient of Davis Ivan here today for follo w up of lung nodule. After lengthy discussion, we decided to refer her to [place] for biopsy. Biopsy was compli cated by small pneumothorax that apparently did not require intervention and was otherwise u ncomplicated. Biopsy results showed squamous cell carcinoma. We reviewed her imaging from December until [facility]. This has increased somewhat in size from [...] COPD (chronic obstructive pulmonary disease) ([facility]) on albuterol Spondylolisthesis of cervical region Spinal stenosis Osteoporosis Depression Pneumonia 2008 hospitalized 5 days Rheumatoid arthritis(714.0) (HCC) on prednisone and methotrexate, Dr. 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 documented in t his encounter Plan of Treatment +--------+---------+ + + + | Date | Type | Specialty | Care Team | Description | +--------+---------+ + + + | 03/06/ | Office | Rheumatology | Santosh Sumner, | | | 2019 | Visit | | [address] | | | | | | [facility] | | | | | | [place] [address] | | | | | | [phone] | | | | | | | [...] cm | | (CT image 56, PET [id number]). Maximum SUV is 6.26, consistent with the [...] + | MISCELLANEOUS LAB | | | [phone] | + +---------+ + + | MISCELANIOUS LAB | | | [phone] | + +---------+ + + documented in [...]
--- OUTSIDE RECORDS SUMMARY | ~2019-12-28 | XMS | Encounter Summary ---
Demographics + + + | Address | [address] | | | [place] [address] | + + + | Home Phone [...] [place] | | | | | [address] | | + + + + + Care Team Providers + +------+ + | Care Tooth Polisher Name | Role | Phone | + [...] | | neoplasm of | [address] | [address] | | | | | bronchus and | [place] | [address] | | | | | lung, | [place], [place] | [place], | | | | | unspecified | [address] | [place] [address] | | | | | site | Phone: | Phone: | | | | | | [phone] | [phone] | | | | | | Fax: | Fax: | | | | | | [phone] | [phone] | +--------+ + + + + + Reason for Visit + +--------+ + | Reason | Onset | Comments | | | Date | | + +--------+ + | IDT Note | 07/26/ | | | | 2014 | | + +--------+ + Encounter Details +--------+ + + + + | Date | Type | Department | Care Team | Description | +--------+ + + + + | 07/26/ | Telephone | [facility] | Sujata Baca, | IDT Note | | 2014 | | MED CTR CHEMO | RN | | | | | INFUSION [address] | | | | | | [place], | | | | | | [place] [address] | | | | | | [phone] | | | +--------+ + + + [...] this encounter Miscellaneous Notes Telephone Encounter - Keyana Jacques OT - 07/26/2014 11:09 AM PSTFormatting of this no te might be different from the original. [facility] Interdisciplinary Team Navigational Checklist ? Top Priority Discipline EPIC Order Entered Consult Scheduled Consult Complete Comments: *Medical Oncology X *Radiation Oncology X *Patient Navigation X *Nurse Navigator X *Social Service Survivorship Nurse Breast Health Genetics Surgical Input X *Nursing assessment X *Pharmacy assessment 07/31 dlb Observation only for increased paclitaxel toxicity; other interactions addressed already X Nutrition 07/26 jt [facility] to see 08/07 08/07 [facility] Lost 3#in one week no appetite X Rehab:-To Keyana Jacques To consult 08/07 - 07/26/14-sent to Keyana Jacques- She will meet with patient and determine needs. PT OT Speech & Language Palliative Care Clinical Trials Involvement Automatic Lathe Tender Visit Financial Assistance Interdisciplinary Consults Completed Date: Electronical ly signed by Sabiha Lange RD at 08/07/2014 12:49 PM PDTdocumented in this encounter Plan of Treatment +--------+---------+ + + + | Date | Type | Specialty | Care Team | Description | +--------+---------+ + + + | 03/06/ | Office | Rheumatology | Santosh Sumner, | | | 2019 | Visit | | PA-C [address] | | | | | | [facility] | | | | | | [place] [address] | | | | | | [phone] | | | | | | | [...]
--- OUTSIDE RECORDS SUMMARY | ~2019-12-28 | XMS | Encounter Summary ---
Demographics + + + | Address | [address] | | | [place] [address] | + + + | Home Phone [...] [place] | | | | | [address] | | + + + + + Care Team Providers + +------+ + | Care Property Management Accountant Name | Role | Phone | + +------+ + | Caitlin Chino MD | PCP | | + +------+ + Encounter Details +--------+ + + + + | Date | Type | Department | Care Team | Description | +--------+ + + + + | 06/16/ | Abstract | [facility] | Eveline Jaffe | | | 2019 | | PULMONARY [address] | MD Raul [address] | | | | | [place], | [address] [place] | | | | | [place] [address] | [place] [address] | | | | | [phone] | [phone] | | | | | | | [...] | 2019 | Visit | | [address] | | | | | | [facility] | | | | | | [place] [address] | | | | | | [phone] | | | | | | | | +--------+---------+ + + + documented as of this encounter Visit Diagnoses Not on filedocumented in this encounter"
--- OUTSIDE RECORDS SUMMARY | ~2019-12-28 | XMS | Encounter Summary ---
Demographics + + + | Address | [address] | | | [place] [address] | + + + | Home Phone [...] [place] | | | | | [address] | | + + + + + Care Team Providers + +------+ + | Care Driving School Instructor Name | Role | Phone | + +------+ + | Davis Ivan MD | PCP | | + +------+ + Reason for Visit +--------+--------+ + | Reason | Onset | Comments | | | Date | | +--------+--------+ + | Other | 09/20/ | | | | 2014 | | +--------+--------+ + Encounter Details +--------+ + + + + | Date | Type | Department | Care Team | Description | +--------+ + + + + | 09/20/ | Telephone | [facility] | Adelita Lu MD | Other | | 2014 | | MED CTR MEDICAL | Need updated | | | | | ONCOLOGY CLINIC [address] | address | | | | | [address] | | | | | | [place] [address] | | | | | | [phone] | | | +--------+ + + + [...] this encounter Miscellaneous Notes Telephone Encounter - Fern Mansfield RN - 09/20/2014 1:33 PM PDTPatient asking for assessment by Dr. Lu today related to lower abdominal lump. Dr. Lu agrees to see irma ent today. Scheduling notified. 15 1:41 PM PDTdocumented in this encounter Plan of Treatment +--------+---------+ + + + | Date | Type | Specialty | Care Team | Description | +--------+---------+ + + + | 03/06/ | Office | Rheumatology | Santosh Sumner, | | | 2019 | Visit | | [address] | | | | | | [facility] | | | | | | [place] [address] | | | | | | [phone] | | | | | | | | +--------+---------+ + + + documented as of this encounter Visit Diagnoses Not on filedocumented in this encounter"
--- OUTSIDE RECORDS SUMMARY | ~2019-12-28 | XMS | Encounter Summary ---
Demographics + + + | Address | [address] | | | [place] [address] | + + + | Home Phone [...] [place] | | | | | [address] | | + + + + + Care Team Providers + +------+ + | Care Assistant Oceanographer Name | Role | Phone | + [...] | | | Trigger | | [place] [address] | | | | | finger, left | | Phone: | | | | | index | | [phone] | | | | | finger | | Fax: | | | | | Trigger | | [phone] | | | | | finger, left | | | | | | | middle | | | | | | | finger | | | | | | | Procedures | | | | | | | DE INCISE | | | | | | | FINGER | | | | | | | TENDON | | | | | | | SHEATH DE | | | | | | | INCISE | | | | | | | FINGER | | | | | | | TENDON | | | | | | | SHEATH DE | | | | | | | [...] + + | 12/14/ | Surgery | [facility] | Giuliano Padilla, | Left Thumb Trigger | | 2019 | | MED CTR OR INTRA OP | MD [address] [place] [address] ST | Finger Release, Left | | | | [address] | [place], [place] | Index Trigger | | | | [place], [place] | [address] | Finger Release, Left | | | | [address] | | Long Trigger Finger | | | | [phone] | | Release, Left Ring | | [...] encounter H&P Notes Giuliano Padilla MD - 12/14/2018 10:07 AM PDTNo changes Plan left hand trigger finger releases of the thumb, index, long and ring fingers under sed ation and local anesthesia Giuliano Sky MD - 12/10/2018 5:33 PM PDT [facility] HISTORY AND PHYSICAL EXAMINATION Pt. Name/Age/: Thea Carmona 73 y.o. 1945 Date of admission: (Not on file) Admitting Physician: Giuliano Padilla Primary Care Physician: Davis Ivan Chief Complaint/Reason for Visit: Left hand thumb, index, long and ring trigger fingers History of Present Illness: Patient has had several months of triggering in the above digits. I have injected her a cou ple times since jul and they helped temporarily only. She has rheumatoid arthritis and I hav e done first cmc arthroplasty bilateral hands in the past with good relief. She does not hav e any carpal tunnel syndrome type symptoms. She is on coumadin anticoagulation due to risk f or stroke. She very much wishes to pursue trigger finger releases of the left thumb, index, long and ring fingers under sedation and local. We have decided to do this without reversing the anticoagulation due to the less risk of morbidity associated with that Past Medical History: Past Medical History: Diagnosis [...] Rheumatoid arthritis(714.0) [facility] prednisone [facility]ate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 Past Surgical History: Procedure Laterality Date BACK SURGERY 03/2014 BLADDER SUSPENSION BRONCHOSCOPY 07/11/2014 EBUS with right hilar LN biopsy, [facility] Dr. Sierra CERVICAL SPINE SURGERY 2013 CHOLECYSTECTOMY COLONOSCOPY 06/2014 ENDOSCOPY HAND ARTHROPLASTY Left 03/20/2015 Procedure: Left 1st C.M.C. Arthroplasty; Surgeon: Giuliano Padilla MD; Location: [facility] MAIN OR HAND ARTHROPLASTY Right 10/27/2017 Procedure: Right 1st CMC Arthroplasty; Surgeon: Giuliano Padilla MD; Location: [facility] MAIN O R HYSTERECTOMY LOBECTOMY 09/16/13 right lower lobe LUNG BIOPSY 07/21/13 right lower lobe SHOULDER SURGERY SHOULDER SURGERY right shoulder THUMB SURGERY TONGUE SURGERY benign per pt TUNNELED VENOUS PORT PLACEMENT N/A 07/28/2014 Procedure: Port Placement; Surgeon: Chalino Chiu MD; Location: [facility] MAIN OR Allergies: No Known [...] capsule by mouth Daily. 30 capsule 0 DULoxetine (CYMBALTA) [address] capsule Take 1 capsule by mouth Daily. 0 folic acid 1 mg tablet Take [...] 500 mcg tablet Take 1 tablet by mouth Daily. 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 Tobacco Use Smoking status: Former Smoker Packs/day: 1.00 Years: 50.00 Pack years: 50.00 Types: Cigarettes Start date: [birth year]08/1952 Last attempt to quit: 07/24/2016 Years since quittin.3 Smokeless tobacco: Never Used Substance and Sexual Activity Alcohol use: No Alcohol/week: 0.0 oz Comment: pt states she was an alcoholic for 40 years but quit in 05/2012 Drug use: No Comment: marijuana in the remote past Sexual activity: Not on file Other Topics Concern Not on file Social History Narrative Lives: in [place] With: alone Grew up: in [place] Has previously lived in: [place] Exposure to toxic chemicals: no Exposure to asbestos: no Exposure to tuberculosis: no Has had a PPD or Quantiferon before: no Has pets at home: cat and a dog Has ever owned birds: yes, 5 years ago Other animal exposures: no Hobbies: used to jaja, crossword puzzles, walking her dog Review of Systems: ENT: no sinus congestion or drainage CARDIAC no chest pain or palpitations RESPIRATORY positive copd GASTROINTESTINAL no abdominal pain GENITOURINARY no dysuria NEURO positive history of strokes PSYCH positive depression MUSCULOSKELETAL as above ENDOCRINE no diabetes HEMATOLOGIC on coumadin SKIN no rashes or skin lesions CONSTITUITIONAL/SYSTEMIC no fevers, chills or sweats Physical Examination: General: Alert, oriented, no acute distress HEENT: Normocephalic, atraumatic Cardiovascular: Regular rate and rhythm, no murmurs Respiratory: Clear to auscultation bilaterally Abdomen: Soft, non-tender, non-distended, positive bowel sounds Extremities: left hand with reproducible triggering of the thumb,index, long and ring finge rs Negative phalen sign or durken compression sign Skin without rashes or lesions Brisk cap refill all digits Assessment and Plan: Left hand trigger fingers including the thumb, index, long and ring fingers Plan left thumb, index, long and ring trigger finger releases The goals of the procedures with the inherent risks and reasonable expectations for recover y outlined She understands and wishes to proceed Giuliano Padilla MD do cumented in this encounter Miscellaneous Notes Op Note - Giuliano Padilla MD - 12/15/2018 10:26 AM PDTpreop diagnosis - left trigger finge rs including the thumb, index, long and ring fingers Postop diagnosis - same Procedure - left trigger thumb release Left index trigger finger release Left long trigger finger release Left ring trigger finger release Giuliano Padilla MD 12/14/18 Procedure in detail - after informed consent is obtained the patient is taken to the operat ing room and underwent IV sedation. After sterile prep and drape and timeout, after sufficie nt sedation is achieved I infiltrated a total of 10cc lidocaine one percent and 20cc point 2 percent naropin - no epinephrine - into the proposed incision sites. I then began the proce dure with the ring finger. A tourniquet is not used and she is on coumadin which was accepte d as I believe her risk of stroke off coumadin is higher than complications with trigger fin casandra surgery. A transverse incision is made centered over the A1 samara of the ring finger an d blunt dissection is performed protecting the neurovascular bundles with ragnell retractors . The samara is released under direction vision with an 11 blade followed by scissors. The t riggering is resolved. This wound is washed out and closed with 4-0 nylon. I then repeated t he same sequence with the long and ring fingers. The thumb is approached with a transverse i ncision at the base of the thumb directly over the palpable nodule. Blunt dissection is perf ormed in the midline protecting the neurovascular bundles with ragnell retractors. The A1 pu lley is released under direct vision with a scalpel and completed with scissors. The trigger ing was resolved. The wound was then irrigated and closed with 4-0 nylon. A compression dres sing is applied with fluffs and kerlix gauze and she was awakened and in stable condition to recovery. [facility] Giul[facility] Padilla MD docume nted in this encounter Plan of Treatment +--------+---------+ + + + | Date | Type | Specialty | Care Team | Description | +--------+---------+ + + + | 03/06/ | Office | Rheumatology | Santosh Sumner, | | | 2019 | Visit | | [address] | | | | | | [facility] | | | | | | [place] [address] | | | | | | [phone] | | | | | | | [...] | | Lavender | | | [facility] | | | Top Tube | | [...] | [facility] | [address] | [place] | [phone] | | [facility] | | [address] | | | - LABORATORY | | [...] | Top Tube | | | [facility] | | [...] [address] | [place] | [phone] | | [facility] | | [address] | | | - LABORATORY | | [...] | | | | | Wheezing, Starting Thu12/14/18 at | | | | | | [...]
--- OUTSIDE RECORDS SUMMARY | ~2019-12-28 | XMS | Encounter Summary ---
Demographics + + + | Address | [address] | | | [place] [address] | + + + | Home Phone [...] [place] | | | | | [address] | | + + + + + Care Team Providers + +------+ + | Care Lamination Technician Name | Role | Phone | + +------+ + | Caitlin Chino MD | PCP | | + +------+ + Encounter Details +--------+ + + + + | Date | Type | Department | Care Team | Description | +--------+ + + + + | 03/16/ | Hospital | [facility] | Soilacurtis Eveline | Chronic obstructive | | 2018 | Encounter | MED CTR PULMONARY | MD Raul [address] | pulmonary disease, | | | | FUNCTION [address] | [address] [place] | unspecified COPD | | | | [address], | [place] [address] | type (HCC) | | | | [place] [address] | [phone] | | | | | [phone] | | | +--------+ + + + [...] | | | | | | type ([facility]) | | | | | [...] | | | | | | type ([facility]) | | | | | [...] | | | | | | type ([facility]) | | | | | [...] | | | | | | type ([facility]) | | | | | [...] | 2019 | Visit | | [address] | | | | | | [place] | | | | | | [place] [address] | | | | | | [phone] | | | | | | | [...]
--- OUTSIDE RECORDS SUMMARY | ~2019-12-28 | XMS | Encounter Summary ---
Demographics + + + | Address | [address] | | | [place] [address] | + + + | Home Phone [...] [place] | | | | | [address] | | + + + + + Care Team Providers + +------+ + | Care Sheet Metal Worker Name | Role | [...] Description | +--------+--------+ + + + | 06/09/ | Refill | [facility] | Santosh Sumner, | Medication Refill | | 2019 | | RHEUMATOLOGY [address] | PA-C [address] | | | | | [facility] | [facility] | | | | | [place], [place] | [place] [address] | | | | | [address] | [phone] | | | | | [phone] | | | +--------+--------+ + + + [...] this encounter Miscellaneous Notes Telephone Encounter - Susie Luis, Tv Host - 06/10/2019 9:03 AM PSTMedicat ion requested:methotrexate By: mykel de la rosa Last filled:05/16/2019 Last Labs:02/22/2019 Last visit:05/30/2019 Next visit: 08/30/2019 Eye exam:na No result notes Last chart note stated:The patient returns to the clinic for a follow up appointment. She i s on 15mg Methotrexate weekly with 1mg Folic Acid daily and doing well. She is requesting a referral for acupuncture which I sent in. She was recently in the ER with a PE due to being off the warfarin. She is now back on the medication and was discharged. We will request all chart notes Please advise Junie mented in this encounter Plan of Treatment +--------+---------+ + + + | Date | Type | Specialty | Care Team | Description | +--------+---------+ + + + | 03/06/ | Office | Rheumatology | Taisha Santosh, | | | 2019 | Visit | | [address] | | | | | | [facility] | | | | | | [place] [address] | | | | | | [phone] | | | | | | | | +--------+---------+ + + + documented as of this encounter Visit Diagnoses + + | Diagnosis | + + | Rheumatoid arthritis, involving unspecified site, unspecified rheumatoid factor | | presence (HCC) - Primary | + + documented in this encounter"
--- OUTSIDE RECORDS SUMMARY | ~2019-12-28 | XMS | Encounter Summary ---
Demographics + + + | Address | [address] | | | [place] [address] | + + + | Home Phone | | + + + | Preferred Language | Unknown | + + + | Marital Status | | + + + | Gnosticism Affiliation | Unknown | + + + [...] [place] | | | | | [address] | | + + + + + Care Team Providers + +------+ + | Care Assistant Floor Covering Printer Name | Role | Phone | + +------+ + | Caitlin Chino MD | PCP | | + +------+ + Reason for Visit +--------+--------+ + | Reason | Onset | Comments | | | Date | | +--------+--------+ + | Other | 08/24/ | Called to offer telephonic visit | | | 2019 | | +--------+--------+ + Encounter Details +--------+ + + + + | Date | Type | Department | Care Team | Description | +--------+ + + + + | 08/24/ | Telephone | [facility] | Santosh Sumner, | Other (Called to | | 2019 | | RHEUMATOLOGY [address] | [place] [address] | offer telephonic | | | | [address] | [facility] | visit) | | | | [place] | [place] [address] | | | | | [address] | [phone] | | | | | [phone] | | | +--------+ + + + [...] this encounter Miscellaneous Notes Telephone Encounter - Anaid Mcarthur - 08/25/2019 3:51 PM PDT1. For your safety and to help prevent further spread of the COVID-19, your provider would like to offer you a telepho ne/virtual visit. Would you like to change your office visit to a telephone/virtual visit? YES 2. Do you currently have a cough, SOB, a fever or sore throat? a. If yes transfer to triage. b. If no, see below NO If no, When you change the apt to a telephonic/virtual visit please: -Confirm insurance -if telephone, Confirm what phone number they want called, check to making sure they get go od secretary receptionist in their area -Gather any questions ahead of time -They need to be in a quiet area, away from distractions -Tell them what time they should be expecting the call (just their scheduled apt time) -if virtual, send Zenitumhart message -computer needs to have webcam, microphone and speakers -smart phone should have webcam, microphone and speakers documented in this enco unter Plan of Treatment +--------+---------+ + + + | Date | Type | Specialty | Care Team | Description | +--------+---------+ + + + | 03/06/ | Office | Rheumatology | Santosh Sumner, | | | 2019 | Visit | | [address] | | | | | | [facility] | | | | | | [place] [address] | | | | | | [phone] | | | | | | | | +--------+---------+ + + + documented as of this encounter Visit Diagnoses Not on filedocumented in this encounter"
--- OUTSIDE RECORDS SUMMARY | ~2019-12-28 | XMS | Encounter Summary ---
Demographics + + + | Address | [address] | | | [place] [address] | + + + | Home Phone [...] [place] | | | | | [address] | | + + + + + Care Team Providers + +------+ + | Care Sewer Pipe Offbearer Name | Role | Phone | + [...] + + | 09/06/ | Hospital | [facility] | Adelita Lu MD | 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 | Encounter | MED CTR CHEMO | Need updated | carcinoma of lung, | | | | INFUSION [address] | address | stage I, unspecified | | | | [place], | | laterality (HCC) | | | | [place] [address] | | (Primary Dx); | | | | [phone] | | Recurrent squamous | | | [...] 2 | 08/22/19 | | | (INOCENCIO DELUAN) | mouth 3 times daily | capsule [...] by mouth | | 0 | | 04/08/201 | | mg tablet | Once a [...] | 2019 | Visit | | [address] | | | | | | [facility] | | | | | | [place] [address] | | | | | | [phone] | | | | | | | [...] + + + | White Blood | 1.1 (LL)Comment: Alert | 4.0 - 11.0 K/uL | [facility] | | | Cells | Value: Clinical Provider | | [facility] | | | | notification at Nurses | | MEDICAL | | | | discretion. | | CENTER - | | | | | | LABORATORY | | + + + + + + | Red Blood | 3.08 (L) | 3.70 - 5.20 [...] + | [facility] | [address] | [place] | [phone] | | [facility] | | [address] | | | - LABORATORY | | [...] | non- | FILTRATION | mL/min/1.73m2 | SOO | | | Italian | RATE,ESTIMATED | | MEDICAL | | | | mL/min/1.92t7Hnxd than | | CENTER - | | [...] 8.2 (L) | 8.3 - 10.5 | [facility] | | | | | mg/dL | [facility] | | | | | | MEDICAL | | | | | | CENTER - | | | | | | LABORATORY | | + + + + + + | Albumin | 2.8 (L) | 3.2 - 5.0 g/dL | [facility] | | | | | [...] [address] | [place] | [phone] | | [facility] | | [address] | | | - LABORATORY | | [...]
--- OUTSIDE RECORDS SUMMARY | ~2019-12-28 | XMS | Encounter Summary ---
Demographics + + + | Address | [address] | | | [place] [address] | + + + | Home Phone [...] [place] | | | | | [address] | | + + + + + Care Team Providers + +------+ + | Care Beef Farmer Name | Role | Phone | + +------+ + | Caitlin Chino MD | PCP | | + +------+ + Encounter Details +--------+ + + + + | Date | Type | Department | Care Team | Description | +--------+ + + + + | 06/20/ | Imaging | [facility] | Provider, | | | 2020 | Exam | MED CTR EXTERNAL | MD [address] | | | | | IMAGING [address] | [place] | | | | | [address] | [place] [address] | | | | | [place] [address] | | | | | | [phone] | | | +--------+ + + + [...] | 2019 | Visit | | [address] | | | | | | [place] | | | | | | [place] [address] | | | | | | [phone] | | | | | | | | +--------+---------+ + + + documented as of this encounter Procedures + +--------+ + + + | Procedure Name | Priori | Date/Time | Associated Diagnosis | Comments | | | ty | | | | + +--------+ + + + | XR CHEST 1 VIEW | Routin | 05/05/2019 | | Results for this | | | e | 12:00 AM | | procedure are in the | | | | PST | | results section. | + +--------+ + + + documented in this encounter Results XR Chest 1 Vw (05/05/2019 12:00 AM PST) + + | Specimen [...]
--- OUTSIDE RECORDS SUMMARY | ~2019-12-28 | XMS | Encounter Summary ---
Demographics + + + | Address | [address] | | | [place] [address] | + + + | Home Phone [...] [place] | | | | | [address] | | + + + + + Care Team Providers + +------+ + | Care Machine Turner Name | Role | Phone | + +------+ + | Davis Ivan MD | PCP | | + +------+ + Reason for Visit +--------+--------+ + | Reason | Onset | Comments | | | Date | | +--------+--------+ + | Other | 04/25/ | | | | 2012 | | +--------+--------+ + Encounter Details +--------+ [...] | | | | | | [place] [address] | | | | | | [phone] | | | +--------+ + + + [...] Telephone Encounter - Sara Evans RN - 04/25/2013 1:07 PM PSTThis message was relay ed to Joann. Crowder per patient. 1 :08 PM PSTTelephone Encounter - Ayana Taylor MD - 04/25/2013 10:48 AM PSTPledex frederick Ms. Carmona know that her only prior chest x-ray was from 2008 and this was not present at that time. There fore, we will just try treating her with fluconazole 200mg once daily. Check chest x- ray, LFTs at next appointment. 13 10:52 AM PSTdocumented in this encounter Plan of Treatment +--------+---------+ + + + | Date | Type | Specialty | Care Team | Description | +--------+---------+ + + + | 03/06/ | Office | Rheumatology | Santosh Sumner, | | | 2019 | Visit | | [address] | | | | | | [facility] | | | | | | [place] [address] | | | | | | [phone] | | | | | | | [...] Performed At | + + + | [facility] | [place] | | Department [address] [facility], [place] | [facility] | | [ rep ct [phone]] [ rep ct [facility] | | [facility]] Signed | - IMAGING | | | | | Patient Name: THEA CARMONA Physician: | | | KATIE.[id number] : 1945 Age: 67 Sex: F Unit #: [id number] | | | Exam Date: 05/11/13 Location: [facility] | | | Report #: [id number] Page: | | | %(RAD)RES..mtdd.print.filter("pg") of %(RAD) | | | RES..mtdd.print.filter("tpg") | | | | | | Accession Number: [id number] | | | CHEST X-RAY CLINICAL HISTORY: [...] Transcribed Date/Time: 05/11/2013 | | | 13:38 [employer]: <<Signature | | | on File>> | | | Matheus | | | MD Kang05/11/13 1420 <Electronically signed by Matheus Kapadia MD> | | | Matheus Kapadia MD 05/11/13 1328 [employer] Driver: [employer]georgina | | | Osnykwbajxron04/11/13 1338 Ayana Taylor MD | | | | | + + + + + + + + | Performing | Address | City/State/Zipcode | Phone Number | | Organization | | | | + + + + + | [facility] | [address] | [place] | [phone] | | [facility] | | [address] | | | - IMAGING | | | | + + + + + documented in this encounter Visit Diagnoses + + | Diagnosis | + + | Pulmonary abscess (HCC) - Primary Abscess of lung | + + documented in this encounter
--- OUTSIDE RECORDS SUMMARY | ~2019-12-28 | XMS | Encounter Summary ---
Demographics + + + | Address | [address] | | | [place] [address] | + + + | Home Phone [...] [place] | | | | | [address] | | + + + + + Care Team Providers + +------+ + | Care Filler Blender Name | Role | Phone | + [...] | Specialty | Physical | Diagnoses | [facility], | [facility] | | | Services | Medicine and | Cervicalgia | Rocky Horvath MD | ORTHOPAEDICS | | | Required | Rehabilitatio | Facet | [address] | [address] | | | | n | arthritis of | [address] | [address] | | | | | cervical | [place], | [facility] [place] | | | | | region | [place] [address] | [address] | | | | | History of | Phone: | Phone: | | | | | fusion of | [phone] | [phone] | | | | | cervical | Fax: | Fax: | | | | | spine | [phone] | [phone] | +--------+ + + + + + Reason for Visit + + + | Reason | Comments | + + + | Neck Pain | | + + + Evaluate & Treat (Routine) +--------+ + + + + + | Status | Reason | Specialty | Diagnoses / | Referred By | Referred To | | | | | Procedures | Contact | Contact | +--------+ + + + + + | Closed | Specialty | Physical | Diagnoses | Yajaira, | Rocky Santos | | | Services | Medicine and | Cervical | Rose Mary | Anselmo Horavth MD [address] | | | Required | Rehabilitatio | dystonia | [place] [address] | [address] | | | | n | Chronic | [address] | [place], | | | | | nonintractab | [place] | [place] [address] | | | | | le headache, | STREET | Phone: | | | | | unspecified | [address] | [phone] | | | | | headache | [place], | Fax: | | | | | type | [place] [address] | [phone] | | | | | Procedures | Phone: | | | | | | DOS 08/08/19 | [phone] | | | | | | Botox | Fax: | | | | | | consult with | [phone] | | | | | | Dr. Santos | | | +--------+ + + + + + Encounter Details +--------+---------+ + + + | Date | Type | Department | Care Team | Description | +--------+---------+ + + + | 08/07/ | Office | [facility] | Rocky Santos, | Facet arthritis of | | 2020 | Visit | PHYSIATRY [address] | MD [address] | cervical region | | | | [address] | [place] | (Primary Dx); | | | | [place] | [address] | Cervicalgia; History | | | | [address] | | of fusion of | | | | [phone] | | cervical spine; | | | | | | History of lung | | | | | | cancer; H/O Right | | | | | | Lung Surgery | +--------+---------+ + + + Social History [...] + + + | Blood Pressure | 127/67 | 08/08/2019 4:15 PM | | | | | PDT | | + + + + + | Pulse | 84 | 08/08/2019 4:15 PM | | | | | PDT [...] Weight | 64.4 kg (142 lb) | 08/08/2019 4:15 PM | | | | | PDT | | + + + + + | Height | 157.5 cm (5' 2") | 08/08/2019 4:15 PM | | | | | PDT | | + + + + + | Body Mass Index | 25.97 | 08/08/2019 4:15 PM | | | | | PDT [...] this encounter Patient Instructions Patient Instructions Indy Littlejohn, Burn Nurse - 08/08/2019 3:40 PM PDTWork t owards posture stabilization. Continue with at home exercises as outlined by physical therap y. Orthopedic surgery referral was placed today. documented in this encounter Progress Notes Rocky Santos MD - 08/08/2019 3:40 PM PDTFormatting of this note might be different fro m the original. Rocky Santos MD [address] [facility] [address] [place] [address] FAX: PHYSICAL MEDICINE AND REHABILITATION H&P CHIEF COMPLAINT: Chief Complaint Patient presents with Neck Pain HISTORY OF PRESENT ILLNESS: Thea Carmona is a 74 y.o. female being seen today at the request of Rose Mary Gates for evaluation of cervical dystonia and consider botox injectio ns. Thea Carmona rates the pain as severe.The symptoms are continuous. Her symptoms improve with nothing. Her symptoms worsen with with activity. She has tried PT, NSAIDS, Steroids, Injections and Muscle relaxers. Thea Carmona reports that she has participated in physical therapy with no improvement in symptoms. Patient's medications, allergies, past medical, surgical, social and family histories were reviewed and updated as appropriate. PAST MEDICAL HISTORY: Past Medical History: Diagnosis Date Acid reflux disease Acute recurrent pansinusitis Acute sinusitis 09/14/2013 AF (paroxysmal atrial fibrillation) ([facility]) Alcohol abuse quit in 05/2012; 40 year habit Anemia Angina of effort ([facility]) Arrhythmia Arthritis Bursitis of left shoulder Conjunctivitis COPD (chronic obstructive pulmonary disease) ([facility]) on albuterol COPD exacerbation ([facility]) Depression HONG (dyspnea on exertion) Folliculitis Full dentures upper & lower GERD (gastroesophageal reflux disease) Hemorrhoids, internal, with bleeding Hx of blood clots Hyperlipidemia on simvastatin Hypertension on clonidine and lisinopril Hypothyroidism Joint pain halfway (current) use of systemic steroids Lumbar spondylosis Mood disorder ([facility]) Obesity MARCE (obstructive sleep apnea) no CPAP Osteoporosis Other chronic pain Pneumonia 2009 hospitalized 5 days Pulmonary embolism ([facility]) Pulmonary nodule 03/30/2013 Recurrent squamous cell carcinoma of lung ([facility]) 07/11/[address] and RUL nodule Rheumatoid arthritis(714.0) on prednisone and methotrexate, Dr. Lewis Cleveland Right wrist pain Spinal stenosis has tried cortisone injections Spondylolisthesis of cervical region Sputum culture positive for Scopulariopsis species Squamous cell carcinoma of lung ([facility]) 07/2013 right lower lobe Stroke ([facility]) 2006 Stroke ([facility]) 2007 left sided weakness Thyroid disease Unspecified visual disturbance Upper GI bleed 06/2014 admitted [place] Vitamin D deficiency Wears dentures PAST SURGICAL HISTORY: Past Surgical History: Procedure Laterality Date BLADDER SUSPENSION 2000 BRONCHOSCOPY 07/11/2014 EBUS with right hilar LN biopsy, [facility] Dr. Sierra BRONCHOSCOPY N/A 09/16/2013 R. Thorascopic Lower Lobectomy and Thoracic Lymphadenectomy; Laterality: N/A Chest Right S urgeon: José Miguel Mace Jr., MD; Location: [facility] MAIN OR CATARACT REMOVAL CERVICAL FUSION Posterior 04/06/2013 with decompression C4-C6 Surgeon: Silviano Cabrera MD Location: [facility] MAIN OR CERVICAL FUSION Anterior 01/19/2013 C4-6 Surgeon: Silviano Cabrera MD; Location: [facility] MAIN OR CHOLECYSTECTOMY 2001 COLONOSCOPY 06/2014 ENDOSCOPY FINGER TRIGGER RELEASE Left 12/14/2018 Procedure: Left Thumb Trigger Finger Release, Left Index Trigger Finger Release, Left Long Trigger Finger Release, Left Ring Trigger Finger Release; Surgeon: Giuliano Padilla MD; Lo cation: [facility] MAIN OR HAND ARTHROPLASTY Left 03/20/2015 Procedure: Left 1st C.M.C. Arthroplasty; Surgeon: Giuliano Padilla MD; Location: [facility] MAIN OR HAND ARTHROPLASTY Right 10/27/2017 Procedure: Right 1st CMC Arthroplasty; Surgeon: Giuliano Padilla MD; Location: [facility] MAIN O R INJECTION STEROIDAL Right 05/27/2012 L5 S1 TFESI INJECTION STEROIDAL Right 07/15/2012 Caudal Block with Cath Target R L5,S1 LOBECTOMY Right 09/16/2013 right lower lobe with bronchoscopy LUMBAR FUSION Anterior 03/29/2014 L4-5, L5-S1 Surgeon: Silviano Cabrera MD; Location: [facility] MAIN OR LUMBAR FUSION N/A 03/31/2014 with decompression; Surgeon: Silviano Cabrera MD; Location [facility] MAIN OR LUMBAR FUSION N/A 03/31/2014 L4-S1; Surgeon: Silviano Cabrera MD Location: [facility] MAIN OR LUNG BIOPSY Right 07/21/2013 right lower lobe SHOULDER SURGERY Right 12/2011 PENNY AND BSO 1974 THORACOSCOPY Right 09/16/2013 Surgeon: José Miguel Mace Jr., MD; Location: [facility] MAIN OR THUMB SURGERY 12/02/2011 TONGUE SURGERY benign per pt TUNNELED VENOUS PORT PLACEMENT N/A 07/28/2014 Procedure: Port Placement; Surgeon: Chalino Chiu MD; Location: [facility] MAIN OR CURRENT MEDICATIONS: Current Outpatient Medications Medication Sig Dispense Refill afatinib (GILOTRIF) 30 mg tablet Take 30 mg by mouth every morning (before breakfast). albuterol-ipratropium 2.5-0.5 mg/3 mL SOLN Take 3 mLs by nebulization 4 times daily. LO N: 12 months Dx: J44.9 360 mL 3 benzonatate (TESSALON) 100 mg capsule take 1 capsule by mouth three times a day if need ed for cough budesonide (PULMICORT) 0.5 mg/2 mL nebulizer solution Take 2 mLs by nebulization 2 time s daily. Duration: Lifetime Dx: COPD J44.9 120 mL 5 Carboxymethylcellulose Sodium (REFRESH TEARS OP) Apply to eye. cholecalciferol (VITAMIN D-3) 1,000 units capsule Take 2,000 Units by mouth Daily. DULoxetine (CYMBALTA) [address] capsule Take 60 mg by mouth daily. DULoxetine (DRIZALMA SPRINKLE) [address] capsule Daily. folic acid 1 mg tablet Take 1 mg by mouth Daily. 0 levothyroxine (SYNTHROID) 112 mcg tablet Take 1 tablet by mouth Daily. 0 methotrexate 2.5 mg tablet take 8 tablets by mouth every week 32 tablet 2 metoprolol succinate (TOPROL-XL) 25 mg 24 hr tablet Take 1 tablet by mouth daily. pantoprazole (PROTONIX) 40 mg tablet Take 40 mg by mouth 2 times daily (before meals). 0 predniSONE (DELTASONE) 5 mg tablet take 2 tablets by mouth every morning 0 Respiratory Therapy Supplies (NEBULIZER COMPRESSOR) KIT Use as directed with nebulizer medication. Dx: COPD CASIE: Lifetime. 1 each 0 Respiratory Therapy Supplies (NEBULIZER/TUBING/MOUTHPIECE) KIT Use as directed with Parudi ulizer machine. Dx: COPD CASIE: lifetime 1 each 12 roflumilast (DALIRESP) 500 mcg tablet Take 500 mcg by mouth daily. simvastatin (ZOCOR) 40 mg tablet Take 40 mg by mouth nightly. spironolactone (ALDACTONE) 25 mg tablet take 1 tablet by mouth once daily - WATER PILL FOR LEG SWELLING TURMERIC PO Take by mouth. warfarin (COUMADIN) 5 mg tablet Take 5 mg by mouth Daily. 5MG 3 times weekly and 4 1/2 tablet other days. No current facility-administered medications for this visit. ALLERGIES: No Known Allergies SOCIAL HISTORY: The patient reports that she quit smoking about 3 years ago. Her smoking use included ciga [...] REVIEW OF SYSTEMS: ROS GENERALLY: No fever, chills, no night sweats, no weight gain, no weight loss, no anemia, no fatigue. EYES: No eye problems, no impaired sight, no eye glasses/contacts, no eye injury, no doubl e vision, no transient blindness. EARS, NOSE, THROAT and MOUTH: No change in sense taste/smell, no hearing difficulty, no ri nging in ears, no drainage from ears, no ear injury, no dizziness, no voice change, no diffi culty swallowing, no snoring, no sleep apnea/CPAP, no sinus trouble, no dental work. NEUROMUSCULAR: No numbness/pain of arms, no numbness/pain of legs, no awake with numbness/ pain, no weakness, no muscle aching, no coordination difficulty, no change in walk, no head injury, no neck injury, no back injury, +pain in neck,+ pain in back, no stroke, no fainting spells, no loss of consciousness, no tremor/shaking, no seizures, no headaches, no migraine s, no memory loss, no speech difficulty, no confusion, no numbness of face. PSYCHIATRIC: No depression, no difficulty sleeping, no anxiety, no bipolar disorder. CARDIOVASCULAR/PULMONARY: No heart attack, no heart murmur, no fluttering heart,+ shortnes s of breath, no cough, no Tuberculosis, no chest pain, no swelling ankles, no bloody coughin g, no asthma,+ COPD/emphysema. GASTROINTESTINAL: No bowel disease, no nausea/vomiting, no rectal bleeding/hemorrhoids, no constipation, no fecal/stool incontinence, no liver/gallbladder disease, no abdominal pain. GENITOURINARY: No frequent urination, no painful/difficult urination, no urinary incontinen ce, no bladder problems. ENDOCRINE: No diabetes, no thyroid disease, no osteoporosis/osteopenia, no drainage from br easts. INTEGUMENTARY/SKIN: No lump in breasts, no skin disease or skin changes, no rash/itch. HEMATOLOGIC: No enlarged lymph nodes, no easy or unusual bleeding, +cancer. RHEUMATOLOGIC:+ joint pain/arthritis, no rheumatoid arthritis PHYSICAL EXAMINATION: Blood pressure 127/67, pulse 84, height 1.575 m (5' 2"), weight 64.4 kg (142 lb), not curre ntly . Body mass index is 25.97 kg/m. GENERAL: The patient is well developed and well nourished. HEENT:HEAD/FACE: EYES: Normocephalic and atraumatic. There are no areas of recent trauma. Normal sclerae without icterus. SKIN Limited skin exam shows no significant rashes or lesions. There are scars in the cerv ical region. CHEST: The patient is in no acute respiratory distress with unlabored respirations. ABDOMEN: The patient is not obese. NEUROLOGIC: The patient is awake, alert, and oriented to time, place, person. She follows simple and complex commands. Her speech is fluent. She comprehends speech well. 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 She has appropriate fund of knowledge Cranial nerves appear grossly intact. MUSCULOSKELETAL Scoliosis Posterior scar over neck Left shoulder sits lower than to the right Head is left of midline Dystonia in left scalene complex Dystonia in right scalene complex Limited range of motion with rotation to the right Limited range of motion with extension RADIOGRAPHIC REVIEW: Cervical xray completed on 04/22/19 were reviewed personally by me, I concur with the resul ts as reported by the Radiologist. ASSESSMENT: 1. Facet arthritis of cervical region 2. Cervicalgia 3. History of fusion of cervical spine 4. History of lung cancer 5. H/O Right Lung Surgery PLAN: 1. Thea Carmona presents to the clinic today for evaluation and treatment of poss ible cervical dystonia. Based on review exam and symptoms Thea Carmona are most con sistent with cervical facet arthritis. Thea Carmona has pain primarily coming from cervical facet joints versus dystonia in nature. At this time we will not consider botox inj ections as it is less likely to provide relief ans symptoms are most consistent with cervica l facet arthritis. Order to orthopedic surgery to evaluate and consider cervical facet steroid injections. We discussed that the benefits of physical therapy are not achieved after days or weeks, ra ther they are achieved over months to years. We discussed that an individual should plan to continue physical therapy exercises independently at home indefinitely. We discussed that e garrison when an individual is feeling better they should still continue exercises. Thea Carmona was encouraged to continue working towards posture stabilization. Today we discussed avoiding the use of neck brace as it may contribute to neck and shoulder muscle weakness. Today we discussed potential risk of neck and shoulder weakness with the u se of brace as it may increase pain over time due to weakness. No formal follow up is needed at this time. Thea Carmona should continue with plan s to follow up with orthopedic surgery to discuss cervical facet steroid injections. In summary, Thea Carmona's neck pain is at the base of her neck, at the level just below her cervical fusion. Her pain is consistent with cervical facet arthritis. Cervical facet steroid injections may offer benefit. Referral has been made to a provider in [facility] that preforms this procedure. She is not likely to benefit from Botox. She has neck asymmetry. She has tight neck musc les. Her neck pain is not associated with her muscles. Her pain is located over joint. Ac tivation and stretching of muscles doesn't reproduce her pain. Botox in her most dystonic m uscles, the posterior muscles would likely limit her ability to hold her head up, forward fa cing and are contraindicated. Thank you for allowing me to be involved in the care of your patient. If you have any ques tions regarding the care of your patient please don't hesitate to call. Approximately 25 minutes was spent face to face with Thea Carmona, over half of wh ich was spent formulating and discussing their medical treatment plan. I, Rocky Santos MD personally performed the services described in this documentation, as scribed by in my presence, KEVIN Guajardo and are both accurate and complete. Rocky Santos MD - 08/08/2019 documented in this en counter Plan of Treatment +--------+---------+ + + + | Date | Type | Specialty | Care Team | Description | +--------+---------+ + + + | 03/06/ | Office | Rheumatology | Santosh Sumner, | | | 2019 | Visit | | [address] | | | | | | [facility] | | | | | | [place] [address] | | | | | | [phone] | | | | | | | | +--------+---------+ + + + + + +--------+ + + | Name | Type | Priori | Associated Diagnoses | Order Schedule | | | | ty | | | + + +--------+ + + | AMB REFERRAL TO | Outpatient | Routin | Cervicalgia Facet | Ordered: 08/08/2019 | | PHYSIATRY | Referral | e | arthritis of | | | | | | cervical region | | | | | | History of fusion of | | | | | | cervical spine | | + + +--------+ + + documented as of this encounter Visit Diagnoses + + | Diagnosis | + + | Facet arthritis of cervical region - Primary Cervical spondylosis without myelopathy | + + | Cervicalgia | + + | History of fusion of cervical spine Arthrodesis status | + + | History of lung cancer Personal history of malignant neoplasm of bronchus and lung | + + | H/O Right Lung Surgery | + + documented in this encounter
--- OUTSIDE RECORDS SUMMARY | ~2019-12-28 | XMS | Encounter Summary ---
Demographics + + + | Address | [address] | | | [place] [address] | + + + | Home Phone [...] [place] | | | | | [address] | | + + + + + Care Team Providers + +------+ + | Care Bisque Kiln Drawer Name | Role | Phone | + +------+ + | Davis Ivan MD | PCP | | + +------+ + Encounter Details +--------+ + + + + | Date | Type | Department | Care Team | Description | +--------+ + + + + | 01/31/ | Hospital | [facility] | Conversion | Back pain | | 2013 | Encounter | CONVERSION DEP [address] | Transaction, | | | | | [facility]OR[facility]YDER | Provider Unknown | | | | | [place] | [phone] | | | | | [address] | | | | | | [phone] | | | +--------+ + + + [...] | 2019 | Visit | | [facility] [address] | | | | | | [address] | | | | | | [place] [address] | | | | | | [phone] | | | | | | | [...]
--- OUTSIDE RECORDS SUMMARY | ~2019-12-28 | XMS | Encounter Summary ---
Demographics + + + | Address | [address] | | | [place] [address] | + + + | Home Phone [...] + + | Author | [facility] | | | and [place] | + + + | Organization | [facility] | | | [...] [place] | | | | | [address] | | + + + + + Care Team Providers + +------+ + | Care Elevator Operator Name | Role | Phone | [...] + + | 07/28/ | Anesthesia | [facility]ER[facility] ABBOTT | Santosh Barahona | | | 2015 | Event | [facility] | [place], [address] | | | | | [address] | [address] [place], [place] | | | | | [place], [place] | [address] | | | | | [address] | | | | | | [phone] | | | +--------+ + + + [...] +----+---+ + + | | 1 | Guffey | | | | 6 | 43-degrees | | | | 3 | | | | | 1 | | | +----+---+ + + | | 1 | Guffey off | | | | 6 | [...] encounter OR Notes Anesthesia Postprocedure Evaluation - Santosh Barahona MD - 07/28/2014 5:05 PM PSTForma tting of this note might be different from the original. ANESTHESIA POSTANESTHESIA EVALUATION Thea Carmona 69 y.o. female 1945 [id number] Procedure(s) Port Placement (N/A Chest) Filed Vitals: 07/28/14 1208 07/28/14 1659 07/28/14 1700 BP: 159/70 146/104 135/65 Pulse: 73 68 70 Temp: 36.5 C (97.7 F) 36.4 C (97.5 F) Resp: 16 15 SpO2: 94% 96% 94% Cooperates? Yes Mental Status Performs simple tasks. Respiratory Satisfactory - Airway patent (self maintained). Cardiovascular Satisfactory Blood pressure and heart rate acceptable Temperature Satisfactory Pain Satisfactory N/V Control Satisfactory Hydration Satisfactory No signs of dehydration Complications None apparent Electronically signed by Santosh Barahona MD 07/28/2014 17:05 [facility] nesthesia Preproc edure Evaluation - Santosh Barahona MD - 07/27/2014 3:20 PM PSTFormatting of this note m ight be different from the original. ANESTHESIA PREANESTHESIA EVALUATION Thea Carmona 69 y.o. female 1945 [id number] Procedure(s): Port Placement (N/A Chest) Medical history, anesthesia, medications, allergy histories reviewed. Labs reviewed. ROS / Med History Ane (-) PONV, difficult intubation, malignant hyperthermia . NPO status verified. CV (+) hypertension.(-) CAD, past NV, CHF, congenital heart disease, pulmonary hypertension, p acemaker, AICD, angina, echocardiogram, AAA. (-) dysrhythmias (-) valvular disease (-) PVD Exercise tolerance >4 METS. Pulm Negative except where noted below. No acute pulmonary concerns. (+) pneumonia, COPD, sleep apnea. (-) shortness of breath, recent URI, asthma, active smoking, no supplemental home oxygen. Neuro Negative except where noted below. (+) CVA, chronic pain.(-) seizures, neuromuscular disease, TIA, headaches, scoliosis, neuro litzy, back pain, weakness, numbness/tingling. Psych Negative except where noted below. (+) anxiety, depression. (-) substance abuse, developmental delays, dementia/delirium, bipolar disorder, schizophren ia, post-traumatic stress disorder. Renal Negative except where noted below. (-) renal/ureteral stones, pyelonephritis, chronic renal insufficiency, acute renal failure , end-stage renal disease GI/Hep Negative except where noted below. (-) reflux/GERD, hypercholesterolemia, hiatal hernia. (-) hepatitis. Endo Negative except where noted below. (+) hypothyroidism. (-) corticosteroid therapy, hyperthyroidism, goiter. (-) Diabetes.(-) obesity. Other Negative except where noted below. (-) anemia, thrombocytopenia, autoimmune disease, arthritis, coagulopathy. Cancer Negative except where noted below. (+) lung cancer. (-) breast cancer, bladder cancer, colon cancer, prostate cancer. Physical Exam Airway MP II, TM >3 FB, Mouth opening >2 FB. Neck: full ROM, extends >30 degrees. Jaw protrus ion normal. Dental Grossly normal except where noted below.; (+) dentures-lower and dentures-upper. CV Rhythm regular. Rate Normal. (-) murmur, carotid bruit, peripheral edema, JVD and weak pulses. Pulm Clear to auscultation bilaterally. (-) wheezing, rhonchi, decreased breath sounds, rales and stridor. Neuro Grossly normal. Anesthesia Plan ASA 3 Type: General. Induction: Intravenous. Potential problems: None anticipated. Monitors: Standard ASA monitors. Consent statement:Anesthetic plan, alternatives, risks and benefits discussed with patient and family. Risks discussed included (but were not limited to): dental injury, pain, sore throat, infec tion, voice injury, muscle aches, nausea, respiratory events, . Consenting person understands and agrees to proceed. Risks and benefits of general anesthetic discussed with patient and available family member s. They agree to proceed, answered all questions.. documented in this encounter Plan of Treatment +--------+---------+ + + + | Date | Type | Specialty | Care Team | Description | +--------+---------+ + + + | 03/06/ | Office | Rheumatology | Taisha Santosh, | | | 2019 | Visit | | [address] | | | | | | [facility] | | | | | | [place] [address] | | | | | | [phone] | | | | | | | [...] 4:03 | | | | | Starting 07/28/14 at 1603, | | PM PST | [...] | | | | | Anxiety, Starting Thu07/28/14 at | | PM PST [...]
--- OUTSIDE RECORDS SUMMARY | ~2019-12-28 | XMS | Encounter Summary ---
Demographics + + + | Address | [address] | | | [place] [address] | + + + | Home Phone [...] [place] | | | | | [address] | | + + + + + Care Team Providers + +------+ + | Care Digital Archivist Name | Role | Phone | + +------+ + | Davis Ivan MD | PCP | | + +------+ + Reason for Visit + + + | Reason | Comments | + + + | Follow-up | | + + + Evaluate & [...] | | | bronchus and | [address] | | | | | | lung, | [address] | | | | | | unspecified | [place], | | | | | | site | [place] | | | | | | Procedures | [address] | | | | | | OFFICE VISIT | Phone: | | | | | | REGULAR | [phone] | | | | | | | Fax: | | | | | | | [phone] | | +--------+--------+ + + + + Encounter Details +--------+---------+ + + + | Date | Type | Department | Care Team | Description | +--------+---------+ + + + | 12/09/ | Office | [facility] [place] | [place], | COPD (chronic | | 2013 | Visit | PULMONARY [address] | Ayana Looney MD | obstructive | | | | [place], | | pulmonary disease) | | | | [place] [address] | | (Primary Dx); MARCE | | | | [phone] | | (obstructive sleep | | | | | | apnea); Sputum | | | | | | culture positive for | | | | | | Scopulariopsis | | | | | | species | +--------+---------+ + + + Social History [...] + | Blood Pressure | 136/74 | 12/09/2013 2:22 PM | | | | | PDT | | + + + + + | Pulse | 86 | 12/09/2013 2:22 PM | | | | | PDT | | + + + + + | Temperature | 37.3 C (99.1 F) | 12/09/2013 2:22 PM | | | | | PDT | | + + + + + | Respiratory Rate | - | - | | + + + + + | Oxygen Saturation | 97% | 12/09/2013 2:22 PM | | | | | PDT | | + + + + + | Inhaled Oxygen | - | - | | | Concentration | | | | + + + + + | Weight | - | - | | + + + + + | Height | 157.5 cm (5' 2") | 12/09/2013 2:22 PM | | | | | PDT | | + + + + + | Body Mass Index | - | - | | + + + + + documented in this encounter Patient Instructions Patient Instructions Ayana Taylor MD - 12/09/2013 2:56 PM PDTYes, you need to go back on the Symbicort twice daily about 12 hours apart. You can continue to use the albuterol nebulizer as needed. I would like you to try to continue to use the CPAP. The goal is to use it for at least 4 h ours during the night. documented in this encounter Progress Notes Ayana Taylor MD - 12/09/2013 2:43 PM PDTFormatting of this note might be differe nt from the original. Pulmonary Follow Up HPI Thea Carmona is a 68 y.o. female patient of Davis Ivan here today for follow up of COPD and MARCE. She was hospitalized for ischemic colitis for 8 days. She reports that she is just now gett ing back on her regular medications. She reports that today she is just doing awful. She is lying on the exam room bed, covered by a bed. She reports that in the hospital she was on reports she got nebulizer treatments 4-5 times a day, so her breathing has been good. She saw Dr. Ivan and he recommended she resume t he Symbicort. She seemed to think this meant she could not use the nebulizer at home, so she has not been using it. She is using her nebulizer, albuterol, 2 times a day. She returns today for routine follow up. Currently she is able to walk 100 feet at her own pace on level ground. She has not been do ing any walking due to general weakness and debility. She was discharged from [facility]. She tries to walk around the house quite a bit. She has not been using the CPAP, which she attributes to her hospital stay. She reports dave t she would like to get back on this. Past Medical History Past Medical History Diagnosis Date COPD (chronic obstructive pulmonary disease) ([facility]) on albuterol Spondylolisthesis of cervical region Spinal stenosis has tried cortisone injections Osteoporosis Depression Pneumonia 2009 hospitalized 5 days Rheumatoid arthritis(714.0) ([facility]) 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 Social History Main Topics [...] Concern None Social History Narrative [place] With: aloneG[place] up: [place] previously lived in: [place]posure t o toxic chemicals: noExposure to asbestos: noExposure to tuberculosis: no Has had a PPD or Q uantiferon before: noHas pets at home: cat and a dog Has ever owned birds: yes, 5 years ago Other animal exposures: noHobbies: used to jaja, crossword puzzles, walking her dog Allergies: No Known Allergies Medications: Outpatient Encounter Prescriptions as of 12/09/2013 Medication Sig Dispense Refill albuterol 2.5 mg/3 [...] mg by mouth Daily. Respiratory Therapy [place] [facility] [place] 5-9 cm H2O. Heater [...] of Systems Constitutional: Denies fever, chills, sweats. Had lost some weight. Gets hot and cold quit e often. Her temperature has been 97-99 degrees. Sleep: Has not been using CPAP to illness. Eyes: Denies vision change and eye irritation. ENT: Denies earache, decreased hearing, nosebleeds, sore throat, and hoarseness. A couple of little nosebleeds. Resp: See HPI. CV: Denies chest pain, palpitations, syncope. Has had a little ankle edema. GI: Denies vomiting currently. She has some ongoing diarrhea. Ongoing nausea, mild, once a day. Objective BP 136/74 | Pulse 86 | Temp 37.3 C (99.1 F) (Tympanic) | Ht 1.575 m (5' 2") | SpO2 97% RA General Appearance: Alert, cooperative, appears stated age, she was lying on the exam tabl e initially, but once sitting up appeared alert and about at baseline Head: Normocephalic, without obvious abnormality, atraumatic Eyes: [...] nodes: Cervical and supraclavicular nodes normal Data: CPAP Data: Dates: 09/27-10/26/13 Machine type: [employer]Set Rx[employer] S9 auto CPAP Home Health Company: [facility] CPAP Pressure: 5-9 cmH2O Median Titrated Pressure: 5.8 cmH2O 95%tile Pressure: 6.8 cmH2O Maximum Pressure: 7.1 cmH2O AHI: 7.1 events/hour Total number of days: 30 Number of days used: 11 Median daily usage: 3:13 hours Percent of days used for more than 4 hours: 10 % Median leak: 9.8 L/min Davis Ivan's notes were reviewed in clinic today. Immunization History Administered Date(s) Administered INFLUENZA, PRESERVATIVE FREE IM 03/22/2013 Pneumococcal (Adult) 03/01/2011 Assessment 1. COPD (chronic obstructive pulmonary disease) - Stable, but she is not being active at [facility]. I reviewed medication use today with them. She plans on resuming some walking. 2. MARCE (obstructive sleep apnea) - Not using her CPAP. The download today is not current. I cannot get an assessment of how well it is working or how it is helping her symptoms based on her current pattern of usage. I asked her to try to use this so we can get a feel for whchad t it is doing. 3. 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 She will have repeat scanning when she sees Dr. Mace. Plan 1.Resule Symbicort twice daily, as Dr. Ivan noted. 2.Using Symbicort does not preclude use of the albuterol nebulizer as needed, and this was explained very clearly to them and written for them. 3.They will have follow up imaging when they see Dr. Mace. 4. Continue on CPAP, I would like her to make a good maximilian effort to see if it improves her disease and symptoms. Used so erratically it will not help, and I cannot get a good assessm ent. She was advised to call if new pulmonary symptoms were to develop. Return to clinic in 6-8 weeks, or sooner with concerns. CC: Davis Ivan Portions of this report were transcribed using voice recognition software. Every effort wa s made to ensure accuracy; however, inadvertent computerized inbound ingredient logistics specialist errors may be pre sent. Electronically signed by: Ayana Taylor MD 12/09/2013 14:43 documented in t his encounter Plan of Treatment +--------+---------+ + + + | Date | Type | Specialty | Care Team | Description | +--------+---------+ + + + | 03/06/ | Office | Rheumatology | Santosh Sumner, | | | 2019 | Visit | | [address] | | | | | | [facility] | | | | | | [place] [address] | | | | | | [phone] | | | | | | | | +--------+---------+ + + + documented as of this encounter Visit Diagnoses + + | Diagnosis | + + | COPD (chronic obstructive pulmonary disease) - Primary Chronic airway obstruction, | | not elsewhere classified | + + | MARCE (obstructive sleep apnea) Obstructive sleep apnea (adult) (pediatric) | + + | Sputum culture positive for Scopulariopsis species Other and unspecified mycoses | + + documented in this encounter
--- OUTSIDE RECORDS SUMMARY | ~2019-12-28 | XMS | Encounter Summary ---
Demographics + + + | Address | [address] | | | [place] [address] | + + + | Home Phone [...] [place] | | | | | [address] | | + + + + + Care Team Providers + +------+ + | Care Foot Worker Name | Role | Phone | [...] + + | 08/24/ | Hospital | [facility] | [place], | Cough | | 2014 | Encounter | [facility] X[facility] [address] | Ayana Looney MD | | | | | [place] | | | | | | [place] [address] | | | | | | [phone] | | | +--------+ + + + [...] | 2020 | Visit | | [address] [address] | | | | | | [facility] | | | | | | [place] [address] | | | | | | [phone] | | | | | | | [...] FINDINGS: Stable left internal jugular line | SOO | | with tip in the [...] + | [facility] | [address] | [place] | [phone] | | [facility] | | [address] | | | - IMAGING | | | | + + + + + documented in this encounter Visit Diagnoses + + | Diagnosis | + + | Cough | + + documented in this encounter"
--- OUTSIDE RECORDS SUMMARY | ~2019-12-28 | XMS | Clinical Summary ---
Demographics + + + | Address | [address] | | | [place] [address] | + + + | Home Phone [...] [place] | | | | | [address] | | + + + + + Care Team Providers + +------+ + | Care Rn Picu Name | Role | Phone | + +------+ + | Caitlin Chino MD | PCP | | + +------+ + Allergies No Known Allergies Medications + + + +---------+------+------+-------+ | Medication | Sig | Dispensed | Refills | Star | End | Statu | | | | | | t | Date | s | | | | | | Date | | | + + + +---------+------+------+-------+ | simvastatin | Take 40 mg by mouth | | 0 | | | Activ | | (ZOCOR) 40 mg tablet | nightly. | | | | | e | + + + +---------+------+------+-------+ | cholecalciferol | Take 2,000 Units by | | 0 | | | Activ | | (VITAMIN [...] mouth | | 0 | | | Activ | | (GILOTRIF) 30 mg | every morning | | | | | e | | tablet | (before breakfast). | | | | | | + + + +---------+------+------+-------+ | folic acid 1 mg | Take 1 mg by mouth | | 0 | 02/1 | | Activ | | tablet | Daily. | | | 3/20 | | e | | | | | | 19 | | | + + + +---------+------+------+-------+ | warfarin | Take 5 mg by mouth | | 0 | 04/02 | | Activ | | (COUMADIN) 5 mg | Daily. 5MG 3 times | | | 01/18 | | e | | tablet | weekly and 4 06/02 | | | 18 | | | | | tablet other days. | | | | | | + + + +---------+------+------+-------+ | levothyroxine | Take 1 tablet by | | 0 | 10/30 | | Activ | | (SYNTHROID) 112 mcg | mouth Daily. | | | 06/20 | | e | | tablet | | | | 19 | | | + + + +---------+------+------+-------+ | | Apply to eye. | | 0 | | | Activ | | Carboxymethylcellulo | | | | | | e | | se Sodium (REFRESH | | | | | | | | TEARS OP) | | | | | | | + + + +---------+------+------+-------+ | TURMERIC PO | Take by mouth. | | 0 | | | Activ | | | | | | | | e | + + + +---------+------+------+-------+ | DULoxetine | Take 60 mg by mouth | | 0 | | | Activ | | (CYMBALTA) [address] | daily. | | | | | e | | capsule | | | | | | | + + + +---------+------+------+-------+ | roflumilast | Take 500 mcg by | | 0 | | | Activ | | (DALIRESP) 500 mcg | mouth daily. | | | | | e | | tablet | | | | | | | + + + +---------+------+------+-------+ | Respiratory | Use as directed with | 1 each | 12 | 03/01 | 03/01 | Activ | | Therapy Supplies | nebulizer machine. | | | 11/18 | 10/18 | e | | (NEBULIZER/TUBING/MO | Dx: COPD CASIE: | | | 19 | 20 | | | UTHPIECE) | lifetime | | | | | | | KITIndications: [...] with | 1 each | 0 | 10/1 | | Activ | | Therapy Supplies | nebulizer | | | /20 | | e | | (NEBULIZER | medication. Dx: COPD | | | 19 | | | | COMPRESSOR) | CASIE: Lifetime. | | | | | | | KITIndications: | | | | | | | | Chronic obstructive | | | | | | | | pulmonary disease, | | | | | | | | unspecified COPD | | | | | | | | type ([facility]) | | | | | | | + + + +---------+------+------+-------+ | | Take 3 mLs by | 360 mL | 3 | 10/1 | | Activ | | albuterol-ipratropiu | nebulization 4 times | | | 11/18 | | e | | m 2.5-0.5 mg/3 mL | daily. CASIE: 12 | | | 19 | | | | SOLNIndications: | months Dx: J44.9 | | | | | | | Chronic obstructive | | | | | | | | pulmonary disease, | | | | | | | | unspecified COPD | | | | | | | | type ([facility]) | | | | | | | + + + +---------+------+------+-------+ | DULoxetine | Daily. | | 0 | | | Activ | | (DRIZALMA SPRINKLE) | | | | | | e | | [address] capsule | | | | | | | + + + +---------+------+------+-------+ | benzonatate | take 1 capsule by | | 0 | 01/1 | | Activ | | (TESSALON) 100 mg | mouth three times a | | | 0/20 | | e | | capsule | day if needed for | | | 20 | | | | | cough | | | | | | + + + +---------+------+------+-------+ | spironolactone | take 1 tablet by | | 0 | 01/0 | | Activ | | (ALDACTONE) 25 mg | mouth once daily - | | | 9/20 | | e | | tablet | WATER PILL FOR LEG | | | 20 | | | | | SWELLING | | | | | | + + + +---------+------+------+-------+ | budesonide | Take 2 mLs by | 120 mL | 5 | 01/2 | | Activ | | (PULMICORT) 0.5 mg/2 | nebulization 2 times | | | 0/20 | | e | | mL nebulizer | daily. Duration: | | | 20 | | | | solution | Lifetime Dx: COPD | | | | | | | | J44.9 | | | | | | + + + +---------+------+------+-------+ | montelukast | | | 0 | 03/0 | | Activ | | (SINGULAIR) 10 mg | | | | 7/20 | | e | | tablet | | | | 20 | | | + + + +---------+------+------+-------+ | methotrexate 2.5 | TAKE 8 TABLETS BY | 96 | 0 | 06/2 | | Activ | | mg | MOUTH ONCE EVERY | tablet | | 6/20 | | e | | tabletIndications: | WEEK FOR RHEUMATOID | | | 20 | | | | Rheumatoid Arthritis | ARTHRITIS. | | | | | | | | Indications: | | | | | | | | Rheumatoid Arthritis | | | | | | + + + +---------+------+------+-------+ | loperamide | | | 0 | 03/0 | | Activ | | (IMODIUM) 2 mg | | | | 2/20 | | e | | capsule | | | | 20 | | | + + + +---------+------+------+-------+ | ipratropium | | | 0 | 07/0 | | Activ | | (ATROVENT) 0.03% | | | | 2/20 | | e | | nasal spray | | | | 20 | | | + + + +---------+------+------+-------+ | azithromycin | 2 tabs now, then 1 | 6 | 0 | 07/1 | | Activ | | (ZITHROMAX) 250 mg | tab daily until | tablet | | 3/20 | | e | | tabletIndications: | gone. | | | 20 | | | | Chronic obstructive | | | | | | | | pulmonary disease | | | | | | | | with acute | | | | | | | | exacerbation (HCC) | | | | | | | + + + +---------+------+------+-------+ | metoprolol | Take 1 tablet by | 90 | 3 | 07/2 | | Activ | | succinate | mouth Daily. | tablet | | 0/20 | | e | | (TOPROL-XL) 25 mg 24 | | | | 20 | | | | hr tablet | | | | | | | + + + +---------+------+------+-------+ | metoprolol | Take 1 tablet by | | 0 | 07/ | 11/29 | Expir | | succinate | mouth daily. | | | 8/ | 7 | ed | | (TOPROL-XL) 25 mg 24 | | | | 19 | 20 | | | hr tablet | | | | | | | + + + +---------+------+------+-------+ | venlafaxine | | | 0 | 021 | 07/0 | Disco | | (EFFEXOR XR) 75 mg | | | | 7/ | 2/20 | ntinu | | 24 hr capsule | | | | 20 | 20 | ed | | | | | | | | (Ther | | | | | | | | apy | | | | | | | | compl | | | | | | | | eted) | + + + +---------+------+------+-------+ | predniSONE | Take 2 tablets by | 14 | 0 | / | 07/2 | Expir | | (DELTASONE) 20 mg | mouth Daily for 7 | tablet | | 3/20 | 0/20 | ed | | tabletIndications: | days Then resume | | | 20 | 20 | | | Chronic obstructive | previous dose of | | | | | | | pulmonary disease | prednisone, 5mg | | | | | | | with acute | twice daily.. | | | | | | | exacerbation (HCC) | | | | | | | + + + +---------+------+------+-------+ | metoprolol | Take 25 mg by mouth | | 0 | | / | Disco | | succinate | Daily. | | | | 0/ | ntinu | | (TOPROL-XL) 25 mg 24 | | | | | 20 | ed | | hr tablet | | | | | | (Reor | | | | | | | | sabra | | | | | | | | (no | | | | | | | | Cance | | | | | | | | l Rx | | | | | | | | msg)) | + + + +---------+------+------+-------+ Active Problems + + + | Problem | Noted Date | + + + | Osteoarthritis of right wrist | 03/30/2019 | + + + | History of primary malignant neoplasm of lung | 01/15/2019 | + + + | Obesity | 01/15/2019 | + + + | CVA (cerebral vascular accident) | 12/14/2018 | + + + | Trigger finger, left index finger | 12/08/2018 | + + + + + | Overview: Added automatically from request for surgery | | [id number] | + + + + + | Trigger finger, left middle finger | 12/08/2018 | + + + + + | Overview: Added automatically from request for surgery | | [id number] | + + + + + | Impingement syndrome of left shoulder | 11/01/2018 | + + + | Impingement syndrome of right shoulder | 11/01/2018 | + + + [...] change. | | Chest XR: Satisfactory - 2018 This will be checked within 1 year | | of initiation of rheumatological therapy.There is evidence of | | COPD | + + + + + | Paroxysmal atrial fibrillation | 09/28/2018 | + + + + + | Overview: New Onset. Noted when checking into Surgery | | 09/28/2018. | + + + + + | Trigger finger of left thumb | 09/07/2018 | + + + + + | Overview: Trigger finger of left thumb [M65.312] | | Trigger finger, left ring finger [M65.342] | | Trigger middle finger of left hand [M65.332] | + + + + + | Trigger finger, left ring finger | 09/07/2018 | + + + + + | Overview: Added automatically from request for surgery | | [id number] | + + + + + | Trigger middle finger of left hand | 09/07/2018 | + + + + + | Overview: Added automatically from request for surgery | | [id number] | + + + + + | Pneumonia of right lower lobe due to infectious organism | 09/01/2018 | + + + | H/O PE (pulmonary embolism) | 05/03/2018 | + + + | Restless legs | 11/10/2017 | + + + | Nephrolithiasis | 02/17/2017 | + + + | High risk medications (not anticoagulants) long-term use | 07/08/2016 | + + + | Pharyngeal dysphagia | 11/30/2015 | + + + | Recurrent pneumonia | 11/07/2015 | + + + | Difficulty in swallowing | 11/07/2015 | + + + | CAP (community acquired pneumonia) | 10/03/2015 | + + + | Acute infective exacerbation of chronic obstructive airway | 06/18/2015 | | disease | | + + + | Spinal stenosis of lumbar region | 06/18/2015 | + + + | Radiation pneumonitis | 03/08/2015 | + + + | Recurrent squamous cell carcinoma of lung | 07/11/2014 | + + + + [...] biopsy by | | interventional radiology at [facility] of the right lung massshows | | [...] Dr. Mace , thoracic surgeon at [facility] for | | [...] in August 20149. Admitted to | | [facility] on September 27, 2014 for right-sided chest | | pain secondary to acute bronchitis.10. CT chest [facility] on September 28, 2014 demonstrated persistent 32 mm x 26 mm | | x 27 mm Right Hilar Mass. Last Assessment & Plan: Stephanie | | returned to the [facility] on | | November 09, 2014 for follow up of her locally recurrent RIGHT Lung | | cancer. Interval history is notable for the fact that Thea was | | admitted to [facility] in [place], [place] for acute | | exacerbation of chronic bronchitis. During her hospitalization | | there, a chest CT was performed demonstrating a persistent 32 x | | 26 mm right hilar mass. These images were reviewed subsequently | | at the [facility] on their PACS system. Radiographic [...] persistent disease. PET/CT schedule | | at [facility] on December 21, 2014 with follow up at [facility] | | the following week. | + + + + + | Pulmonary nodules | 04/17/2014 | + + + + + | Overview: Right upper lobe nodule enlarging-> 3mm to 7mm on | | scan 12/2013 Due for repeat scan 07/2014 | + + + + + | H/O Right Lung Surgery | 09/28/2013 | + + + + + | Overview: 09/16/13 - Right lower lobe Lobectomy for Squamous | | Cell Cancer | + + + + + | Spinal stenosis in cervical region | 08/17/2013 | + + + | MARCE (obstructive sleep apnea) | 08/02/2013 | + + + + + | Overview: Has used CPAP in the past, Told "didn't need" CPAP | | anymore | + + + + + | Chronic pain | 06/09/2013 | + + + | Anxiety | 06/09/2013 | + + + | Osteoporosis | 06/09/2013 | + + + | Depression | 05/11/2013 | + + + | Rheumatoid arthritis | 03/30/2013 | + + + + + | Overview: STEROID USEpredniSONE (DELTASONE)methotrexate 2.5 | | MG tabletafatinib (GILOTRIF) 30 mg tablet Last Assessment | | & Plan: The patient returns to the clinic for a follow up | | appointment. She is on 15mg Methotrexate weekly with 1mg Folic | | Acid daily and doing well. She does have compliants of joint | | pains but in the evening and large joints. Likely associated with | | her OA. Follow up with PCP in regards to pain control. We will | | make no changes and see her back in 3 months Discussed risks and | | benefits of this medication. Patient understands he/she will also | | be taking folic acid 1 mg daily. I explained that methotrexate | | can cause mouth sores, hair loss, and fatigue and to call if | | there was trouble tolerating it. Patient was advised that | | methotrexate can cause bone marrow toxicity and that blood would | | need to be checked 4 weeks after starting the medication. Liver | | toxicity is also possible so blood would need to be monitored at | | least every 3 months for as long as the medicine was taken. | | Discussed that this a category D medication for women | | and may produce reversible infertility in men. | + + + + + | Chronic obstructive bronchitis with pulmonary emphysema | 03/22/2013 | + + + + + | Overview: severe COPD | + + + +---+ | Hyperlipidemia | | + +---+ + + | Overview: on simvastatin | [...] | +--------+ + + + + | 12/18/ | Refill | Cardiology | Deborah Bucio | Medication Refill | | 2019 | | | Dawna Dust Box Tender | | +--------+ + + + + | 12/11/ | Office | Pulmonology | Eveline Jaffe | Chronic obstructive | | 2019 | Visit | | MD Raul | pulmonary disease | | | | | | with acute | | | | | | exacerbation (HCC) | | | | | | (Primary Dx); | | | | | | Dyspnea on exertion | +--------+ + + + + | 11/30/ | Virtual | Cardiology | Anisha Lopez DO | Cerebrovascular | | 2019 | Office | | | accident (CVA), | | | Visit | | | unspecified | | | | | | mechanism (HCC) | | | | | | (Primary Dx); | | | | | | Essential | | | | | | hypertension; | | | | | | Paroxysmal atrial | | | | | | fibrillation (HCC); | | | | | | Hyperlipidemia, | | | | | | unspecified | | | | | | hyperlipidemia type | +--------+ + + + + | 11/29/ | Office | Rheumatology | Santosh Sumner, | Rheumatoid | | 2019 | Visit | | PA-C | arthritis, involving | | | | | | unspecified site, | | | | | | unspecified | | | | | | rheumatoid factor | | | | | | presence (HCC) | | | | | | (Primary Dx); High | | | | | | risk medication use | +--------+ + + + + | 11/29/ | Orders Only | | Arlin Hussein | Rheumatoid | | 2019 | | | L, Electrolysis Needle Operator | arthritis, involving | | | | | | unspecified site, | | | | | | unspecified | | | | | | rheumatoid factor | | | | | | presence (HCC); High | | | | | | risk medication use | +--------+ + + + + | 11/28/ | Telephone | Rheumatology | Santosh Sumner, | Other (SCREEN FOR | | 2019 | | | PA-C | SILVIA ) | +--------+ + + + + | 11/22/ | Refill | Rheumatology | Santosh Sumner, | Medication Refill | | 2020 | | | PA-Avila | | +--------+ + + + + from Last 3 Months Immunizations + + + + | Name | Administration Dates | Next Due | + + + + | INFLUENZA 64 Y OR >, | 03/02/2018, 04/10/2017, 2016, | | | TRIVALENT HIGH-DOSE | 03/02/2015 | | + + + + | INFLUENZA PF 17 Y OR | 02/15/2014, 03/22/2013 | | | >,QUADRIVALENT | | | | RECOMBINANT | | | + + + + | INFLUENZA PF 17 Y OR | 02/15/2014, 03/22/2013 | | | >,TRIVALENT | | | | RECOMBINANT | | | + + + + | INFLUENZA PF 64 Y OR | 03/07/2019 | | | >,TRIVALENT (FLUAD) | | | + + + + | INFLUENZA PF | 02/24/2018 | | | QUAD(PED/ADOL/ADULT) | | | | ,PSKT or VIAL | | | + + + + | INFLUENZA TRIV | 03/02/2015, 02/15/2014, 03/24/2013, | | | W/PRES(PED/ADOL/ADUL | 04/13/2012, 02/20/2011, 03/05/2010, | | | T),MULTIDOSE | 02/07/2009, 04/21/2008, 03/18/2007, | | | | 05/05/2006, 05/16/2004, 05/04/2003 | | + + + + | PNEUMOCOCCAL | 07/26/2014, 07/14/2014 | | | CONJUGATE 13-VALENT | | | | (PCV13) | | | + + + + | PNEUMOCOCCAL | 02/25/2018, 03/01/2011, 06/12/2010, | | | POLYSACCHARIDE | 06/04/2005 | | | 23-VALENT (PPSV23) | | | + + + + | TDAP, (ADOL/ADULT) | 02/25/2018, 06/25/2016 | | + + + + | ZOSTER, 1 DOSE | 04/13/2012 | | | (ZOSTAVAX) | | | + + + + Family History + + +--------+ + | Medical History | Relation | Name | Comments | + + +--------+ + | Alcohol abuse | Brother | | | + + +--------+ + | Lung cancer | Brother | | | + + +--------+ + | Tobacco Use | Brother | | | + + +--------+ + | Stomach cancer | Father | | | + + +--------+ + | No known problems | Maternal | | | | | Grandfath | | | | | er | | | + + +--------+ + | No known problems | Maternal | | | | | Grandmoth | | | | | er | | | + + +--------+ + | No known problems | Mother | | | + + +--------+ + | Asthma | Other | | | + + +--------+ + | Diabetes | Other | | | + + +--------+ + | No known problems | Paternal | | | | | Grandfath | | | | | er | | | + + +--------+ + | No known problems | Paternal | | | | | Grandmoth | | | | | er | | | + + +--------+ + | COPD | Sister | | | + + +--------+ + | Tobacco Use | Sister | | | + + +--------+ + | No known problems | Sister | | | + + +--------+ + | No known problems | Son | Jewel | | | | | Azevedo | | + + +--------+ + + + + + + | Relation | Name | Status | Comments | + + + + + | Brother | | | lung cancer | | | | (Age | | | | | 55) | | + + + + + | Father | | | stomach cancer | | | | (Age | | | | | 85) | | + + + + + | Maternal Grandfather | | | | + + + + + | Maternal Grandmother | | | | + + + + + | Mother | | | in a fire | | | | (Age | | | | | 85) | | + + + + + | Other | | | | + + + + + | Paternal Grandfather | | | | + + + + + | Paternal Grandmother | | | | + + + + + | Sister | | Alive | | + + + + + | Sister | | Alive | | + + + + + | Son | Jewel Azevedo | Alive | | + + + + + Social History + [...] + + + | Blood Pressure | 134/78 | 12/12/2019 3:10 PM | | | | | PDT | | + + + + + | Pulse | 92 | 12/12/2019 3:10 PM | | | | | PDT | | + + + + + | Temperature | 36.6 C (97.9 F) | 12/12/2019 3:10 PM | | | | | PDT | | + + + + + | Respiratory Rate | 22 | 12/12/2019 3:10 PM | | | | | PDT | | + + + + + | Oxygen Saturation | 94% | 12/12/2019 3:10 PM | | | | | PDT | | + + + + + | Inhaled Oxygen | - | - | | | Concentration | | | | + + + + + | Weight | 66.3 kg (146 lb 2.6 | 12/12/2019 3:10 PM | | | | oz) | PDT | | + + + + + | Height | 157.5 cm (5' 2") | 12/12/2019 3:10 PM | | | | | PDT | | + + + + + | Body Mass Index | 26.73 | 12/12/2019 3:10 PM | | | | | PDT | | + + + + + Plan of Treatment +--------+---------+ + + + | Date | Type | Specialty | Care Team | Description | +--------+---------+ + + + | 03/06/ | Office | Rheumatology | Santosh Sumner, | | | 2019 | Visit | | [facility] [address] | | | | | [address] | | | | | | [place] [address] | | | | | | [phone] | | | | | | | | +--------+---------+ + + + + + + + + | Health Maintenance | Due Date | Last | Comments | | | | Done | | + + + + + | Hepatitis C | | | | | Screening | 4 | | | + + + + + | Med Mgmt: TSH | | | | | | 4 | | | + + + + + | Med Mgmt: Vit D | | | | | | 4 | | | + + + + + | Medication | | | | | Management | 4 | | | + + + + + | Breast Cancer | | | | | Screening | 9 | | | + + + + + | Vaccine: Zoster (2 | | 04/13/20 | | | of 3) | 3 | 12 | | + + + + + | Adult Annual | | | | | Wellness Visit | 5 | | | + + + + + | Statin Therapy | | | | | (optimal intensity) | 5 | | | + + + + + | Med Mgmt: INR | | 09/29/19 | | | | 9 | 19, | | | | | 09/05/19 | | | | | 19, | | | | | 09/04/19 | | | | | 19, | | | | | Addition | | | | | al | | | | | history | | | | | exists | | + + + + + | Vaccine: Influenza | | 03/07/20 | | | (#1) | 0 | 19, | | | | | 03/02/20 | | | | | 18, | | | | | 02/25/20 | | | | | 18, | | | | | Addition | | | | | al | | | | | history | | | | | exists | | + + + + + | Med Mgmt: ALT | | 11/30/19 | | | | 0 | 20, | | | | | 02/23/20 | | | | | 19, | | | | | 10/29/19 | | | | | 19, | | | | | Addition | | | | | al | | | | | history | | | | | exists | | + + + + + | Med Mgmt: AST | | 07/01/20 | | | | 0 | 20, | | | | | 02/23/20 | | | | | 19, | | | | | 10/29/19 | | | | | 19, | | | | | Addition | | | | | al | | | | | history | | | | | exists | | + + + + + | Med Mgmt: Cr | | 11/30/19 | | | | 0 | 20, | | | | | 02/23/20 | | | | | 19, | | | | | 12/10/19 | | | | | 19, | | | | | Addition | | | | | al | | | | | history | | | | | exists | | + + + + + | Med Mgmt: HCT | | 11/30/19 | | | | 0 | 20, | | | | | 02/23/20 | | | | | 19, | | | | | 10/29/19 | | | | | 19, | | | | | Addition | | | | | al | | | | | history | | | | | exists | | + + + + + | Med Mgmt: HGB | | 11/30/19 | | | | 0 | 20, | | | | | 02/23/20 | | | | | 19, | | | | | 10/29/19 | | | | | 19, | | | | | Addition | | | | | al | | | | | history | | | | | exists | | + + + + + | Med Mgmt: PLT | | 11/30/19 | | | | 0 | 20, | | | | | 02/23/20 | | | | | 19, | | | | | 10/29/19 | | | | | 19, | | | | | Addition | | | | | al | | | | | history | | | | | exists | | + + + + + | Med Mgmt: RBC | | 11/30/19 | | | | 0 | 20, | | | | | 02/23/20 | | | | | 19, | | | | | 10/29/19 | | | | | 19, | | | | | Addition | | | | | al | | | | | history | | | | | exists | | + + + + + | Med Mgmt: WBC | | 11/30/19 | | | | 0 | 20, | | | | | 02/23/20 | | | | | 19, | | | | | 10/29/19 | | | | | 19, | | | | | Addition | | | | | al | | | | | history | | | | | exists | | + + + + + | Med Mgmt: K | | 11/30/19 | | | | 1 | 20, | | | | | 02/23/20 | | | | | 19, | | | | | 12/10/19 | | | | | 19, | | | | | Addition | | | | | al | | | | | history | | | | | exists | | + + + + + | Med Mgmt: Na | | 11/30/19 | | | | 1 | 20, | | | | | 02/23/20 | | | | | 19, | | | | | 12/10/19 | | | | | 19, | | | | | Addition | | | | | al | | | | | history | | | | | exists | | + + + + + | Med Mgmt: eGFR | | 11/30/19 | | | | 1 | 20, | | | | | 02/23/20 | | | | | 19, | | | | | 12/10/19 | | | | | 19, | | | | | Addition | | | | | al | | | | | history | | | | | exists | | + + + + + | Colorectal Cancer | | 06/01/19 | | | Screening | 5 | 15 | | | (Colonoscopy) | | | | + + + + + | Vaccine: | | 02/26/20 | | | Dtap/Tdap/Td (3 - | 8 | 18, | | | Td) | | 06/25/19 | | | | | 17 | | + + + + + | Vaccine: | Completed | 02/26/20 | | | Pneumococcal 65+ | | 18, | | | | | 07/26/19 | | | | | 15, | | | | | 07/14/19 | | | | | 15, | | | | | Addition | | | | | al | | | | | history | | | | | exists | | + + + + + Implants + +------+--------+ +--------+--------+--------+ | Implanted | Type | Area | Manufacture | Device | Shelf | Model | | | | | r | | Expira | / | | | | | | Identi | tion | Serial | | | | | | fier | Date | / Lot | + +------+--------+ +--------+--------+--------+ | Allograft Putty Freeze Dried | | N/A: | | | 08/20/ | [id number] | | Dbx 2.5ml - | | Spine | | | 2014 | | | [id number]: | | Cervic | | | | /[id number] | | Qty: 1 on 01/19/2013 by | | al | | | | [id number] | | Silviano Cabrera MD | | | | | | [id number] | | | | | | | | 8 / | + +------+--------+ +--------+--------+--------+ | [employer] Allograft | | N/A: | | | 08/16/ | [id number] | | [id number] | | Spine | | | 2017 | 7 | | [id number]: Qty: 1 | | Cervic | | | | /[id number] | | on 01/19/2013 by Rick, | | al | | | | [phone] | | MD Silviano | | | | | | / | + +------+--------+ +--------+--------+--------+ | [employer] Allograft 6mm - | | N/A: | | | 06/23/ | [id number] | | [id number]: Qty: 1 | | Spine | | | 2018 | 6 | | on 01/19/2013 by Rick, | | Cervic | | | | /[id number] | | MD Silviano | | al | | | | 0-206 | | | | | | | | / | + +------+--------+ +--------+--------+--------+ | Screw [employer] | | N/A: | | | | 04.613 | | Variable Angle 4.0x14mm - | | Spine | | | | .514 | | [id number]: Qty: 2 on | | Cervic | | | | /[id number] | | 01/19/2013 by Silviano Cabrera, | | al | | | | 514 / | | MD | | | | | | | + +------+--------+ +--------+--------+--------+ | Screw [employer] | | N/A: | | | | 04.613 | | Variable Angle [id number] - | | Spine | | | | .516 | | [id number]: Qty: 2 on | | Cervic | | | | /[id number] | | 01/19/2013 by Silviano Cabrera, | | al | | | | 516 / | | MD | | | | | | | + +------+--------+ +--------+--------+--------+ | Screw [employer] | | N/A: | | | | 04.613 | | Fixed Angle 4.0x14mm - | | Spine | | | | .714 | | [id number]: Qty: 2 on | | Cervic | | | | /[id number] | | 01/19/2013 by Silviano Cabrera, | | al | | | | 714 / | | MD | | | | | | | + +------+--------+ +--------+--------+--------+ | Plate Vectra Cervical 30mm - | | N/A: | | | | 04.613 | | [id number]: Qty: 1 on | | Spine | | | | .130 | | 01/19/2013 by Silviano Cabrera, | | Cervic | | | | /[id number] | | MD | | al | | | | 130 / | + +------+--------+ +--------+--------+--------+ | Allograft Osteocell 10cc | | | | | 08/25/ | [id number] | | [id number] - | | | | | 2018 | 0 | | [id number]: Qty: 1 | | | | | | /[id number] | | on 04/06/2013 | | | | | | 1542 / | + +------+--------+ +--------+--------+--------+ | Allograft Putty Freeze Dried | | N/A: | | | 11/10/ | [id number] | | Demineralized Bone Matrix Dbx | | Spine | | | 2014 | | | 1ml - | | Cervic | | | | /97869 | | [id number]: | | al | | | | [id number] | | Qty: 1 on 04/06/2013 by | | | | | | [id number] | | Silviano Cabrera MD | | | | | | 1 / | + +------+--------+ +--------+--------+--------+ | Allograft Putty Freeze Dried | | N/A: | | | 10/20/ | [id number] | | Dbx 2.5ml - | | Spine | | | 2014 | | | [id number]: | | Cervic | | | | /[id number] | | Qty: 1 on 04/06/2013 by | | al | | | | [id number] | | Silviano Cabrera MD | | | | | | [id number] | | | | | | | | 3 / | + +------+--------+ +--------+--------+--------+ | Screw Vuepoint Post Cerv | | N/A: | | | | [id number] | | 3.5x12mm - [id number]: | | Spine | | | | 2 | | Qty: 3 on 04/06/2013 by | | Cervic | | | | /[id number] | | Silviano Cabrera MD | | al | | | | 12 / | + +------+--------+ +--------+--------+--------+ | Screw Vuepoint Post Cerv | | N/A: | | | | [id number] | | 3.5x14mm - [id number]: | | Spine | | | | 4 | | Qty: 1 on 04/06/2013 by | | Cervic | | | | /[id number] | | Silviano Cabrera MD | | al | | | | 14 / | + +------+--------+ +--------+--------+--------+ | Srini Vuepoint 3.5x60mm - | | N/A: | | | | [id number] | | [id number]: Qty: 1 on | | Spine | | | | 0 | | 04/06/2013 by Silviano Cabrera, | | Cervic | | | | /[id number] | | MD | | al | | | | 60 / | + +------+--------+ +--------+--------+--------+ | Screw Vuepoint Post Cerv Set | | N/A: | | | | [id number] | | Lizbeth [employer] Hook - | | Spine | | | | 0 | | [id number]: Qty: 4 on | | Cervic | | | | /[id number] | | 04/06/2013 by Silviano Cabrera, | | al | | | | 00 / | | MD | | | | | | | + +------+--------+ +--------+--------+--------+ | Graft Sponge Kit Bone Infuse | | | MEDTRONIC - | | | [id number] | | Medium 56ml - | | | MEDT | | | 0 / | | [id number]: Qty: 1 on | | | | | | /[id number] | | 03/29/2014 by Silviano Cabrera, | | | | | | [id number] | | MD | | | | | | | + +------+--------+ +--------+--------+--------+ | Triad Alifidel Allograft | | | NUVASIVE - | | 08/02/ | [id number] | | [id number]: Qty: 1 on | | | NVSV | | 2018 | 4 | | 03/29/2014 by Silviano Cabrera, | | | | | | /[id number] | | MD | | | | | | 0-065 | | | | | | | | / | + +------+--------+ +--------+--------+--------+ | Screw Brigade 5.5x25mm - | | | NUVASIVE - | | | [id number] | | [id number]: Qty: 2 on | | | NVSV | | | 5 / / | | 03/29/2014 by Silviano Cabrera, | | | | | | | | MD | | | | | | | + +------+--------+ +--------+--------+--------+ | Screw Brigade 5.5x30mm - | | | NUVASIVE - | | | [id number] | | [id number]: Qty: 4 on | | | NVSV | | | 0 / / | | 03/29/2014 by Silviano Cabrera, | | | | | | | | MD | | | | | | | + +------+--------+ +--------+--------+--------+ | Cage Arnaldo Batista Allograft | | | NUVASIVE - | | 07/14/ | [id number] | | [id number] | | | NVSV | | 2012 | 2 / / | | [id number]: Qty: 1 on | | | | | | | | 03/29/2014 by Silviano Cabrera, | | | | | | | | MD | | | | | | | + +------+--------+ +--------+--------+--------+ | Screw Brigade 5.5x35mm - | | | NUVASIVE - | | | [id number] | | [id number]: Qty: 2 on | | | NVSV | | | 5 / / | | 03/29/2014 by Silviano Cabrera, | | | | | | | | MD | | | | | | | + +------+--------+ +--------+--------+--------+ | Allograft Block Extra Large | | N/A: | NUVASIVE - | | 09/27/ | [id number] | | Formagraft Large - | | Back | NVSV | | 2018 | 5 / | | [id number]: Qty: 1 on | | | | | | /FG-14 | | 03/29/2014 by Silviano Cabrera, | | | | | | 13 | | MD | | | | | | | + +------+--------+ +--------+--------+--------+ | Graft Sponge Kit Bone Infuse | | N/A: | MEDTRONIC - | | 08/27/ | [id number] | | Large 8ml - | | Back | MEDT | | 2016 | 0 / | | [id number]: Qty: 1 on | | | | | | /[id number] | | 03/29/2014 by Silviano Cabrera, | | | | | | [id number] | | MD | | | | | | | + +------+--------+ +--------+--------+--------+ | Allograft Freeze Dried | | N/A: | LIFENET | | 11/13/ | [id number] | | Demineralized Cancellous Mix | | Spine | HEALTH - | | 2016 | T | | Ic Graft Chamber 15cc - | | Lumbar | LIFN | | | /[id number] | | [id number]: Qty: | | | | | | 57-303 | | 1 on 03/31/2014 by Rick, | | | | | | 1 / | | MD Silviano | | | | | | | + +------+--------+ +--------+--------+--------+ | Graft Sponge Kit Bone Infuse | | N/A: | MEDTRONIC - | | 04/01/ | [id number] | | Medium 56ml - | | Spine | MEDT | | 2014 | 0 | | [id number]: Qty: 1 | | Lumbar | | | | /[id number] | | on 03/31/2014 by Rick, | | | | | | [id number] | | MD Silviano | | | | | | / | + +------+--------+ +--------+--------+--------+ | Allograft Freeze Dried | | N/A: | LIFENET | | 11/01/ | [id number] | | Demineralized Cancellous Mix | | Spine | HEALTH - | | 2016 | T | | Ic Graft Chamber 15cc - | | Lumbar | LIFN | | | /[id number] | | [id number]: Qty: | | | | | | 37-301 | | 1 on 03/31/2014 by Rick, | | | | | | 1 / | | MD Silviano | | | | | | | + +------+--------+ +--------+--------+--------+ | Screw Precept Shank Mod | | N/A: | NUVASIVE - | | | [id number] | | 7.5x50mm - [id number]: | | Spine | NVSV | | | 0 / / | | Qty: 4 on 03/31/2014 by | | Lumbar | | | | | | Silviano Cabrera MD | | | | | | | + +------+--------+ +--------+--------+--------+ | Screw Precept Shank Mod | | N/A: | NUVASIVE - | | | [id number] | | 6.5x50mm - [id number]: | | Spine | NVSV | | | 0 / / | | Qty: 2 on 03/31/2014 by | | Lumbar | | | | | | Silviano Cabrera MD | | | | | | | + +------+--------+ +--------+--------+--------+ | Screw Locking For 6.25mm Srini | | N/A: | NUVASIVE - | | | [id number] | | - [id number]: Qty: 6 | | Spine | NVSV | | | 1 / / | | on 03/31/2014 by Rick, | | Lumbar | | | | | | MD Silviano | | | | | | | + +------+--------+ +--------+--------+--------+ | Screw Tulip For 6.25mm Srini - | | N/A: | NUVASIVE - | | | [id number] | | [id number]: Qty: 6 on | | Spine | NVSV | | | 2 / / | | 03/31/2014 by Silviano Cabrera, | | Lumbar | | | | | | | | | | | | | + +------+--------+ +--------+--------+--------+ | Allograft Freeze Dried | | N/A: | LIFENET | | 11/08/ | [id number] | | Demineralized Cancellous Mix | | Spine | HEALTH - | | 2016 | T | | Ic Graft Chamber 15cc - | | Lumbar | LIFN | | | /[id number] | | [id number]: Qty: | | | | | | 98-303 | | 1 on 03/31/2014 by Rick, | | | | | | 9 / | | MD Silviano | | | | | | | + +------+--------+ +--------+--------+--------+ | Allograft Freeze Dried | | N/A: | LIFENET | | 08/16/ | [id number] | | Demineralized Cancellous Mix | | Spine | HEALTH - | | 2016 | T | | Ic Graft Chamber 10cc - | | Lumbar | LIFN | | | /[id number] | | [id number]: Qty: | | | | | | 22-301 | | 1 on 03/31/2014 by Rick, | | | | | | 3 / | | MD Silviano | | | | | | | + +------+--------+ +--------+--------+--------+ | Allograft Freeze Dried | | N/A: | LIFENET | | 07/13/ | [id number] | | Demineralized Cancellous Mix | | Spine | HEALTH - | | 2016 | T | | Ic Graft Chamber 5cc - | | Lumbar | LIFN | | | /[id number] | | [id number]: Qty: | | | | | | 40-301 | | 1 on 03/31/2014 by Rick, | | | | | | 1 / | | MD Silviano | | | | | | | + +------+--------+ +--------+--------+--------+ | Srini Spherx Dual Ball Ti Dbr | | N/A: | NUVASIVE - | | | [id number] | | Ii 42.5mm - | | Spine | NVSV | | | 5 / / | | [id number]: Qty: 2 on | | Lumbar | | | | | | 03/31/2014 by Silviano Cabrera, | | | | | | | | MD | | | | | | | + +------+--------+ +--------+--------+--------+ | Port Imp Mri Powerport 8fr - | | | BARD ACCESS | | 03/20/ | [id number] | | [id number]: Qty: 1 on | | | SYSTEMS - | | 2015 | 0 / | | 07/28/2014 by , | | | ELLEN | | | /[id number] | | Chalino Gu MD, FACS at [facility] | | | | | | 003 | | [facility] | | | | | | | | [facility] | | | | | | | + +------+--------+ +--------+--------+--------+ | Mini TightropeImplanted: Qty: | | Right: | ARTHREX | | 11/18/ | [id number] | | 1 on 03/20/2015 by Randy, | | Hand | ARTHREX | | 2020 | 9DS / | | Giuliano Briones MD at [facility] | | | INC[facility] | | | /[id number] | | [facility] | | | | | | 349 [...] + from Last 3 Months Results Sedimentation Rate (11/30/2019 2:19 PM PDT) + + + + + + | Component | Value | Ref Range | Performed | Pathologist | | | | | At | Signature | + + + + + + | ESR | 37 (H)Comment: Testing | 0 - 30 mm/Hr | REFERENCE | | | | performed at [facility];[address] | | LAB | | | | [place] | | [facility] | | | | Blvd;[place] [address] | | LABORATORY | | + + + + + + + + | Specimen | + + | Blood | + + + + + + + | Performing | Address | City/State/Zipcode | Phone Number | | Organization | | | | + + + + + | REFERENCE LAB | [address] [place] [address] | [place] | [phone] | | [facility] | Bl[address] | [address] | | | LABORATORY | | | | + + + + + | REFERENCE LAB | [address] [place] [address] | [place], [place] | | | [facility] | Bl[address]. | [address] | | | LABORATORY | | | | + + + + + CBC with Differential (11/30/2019 2:19 PM PDT) [...] | | | Absolute | performed at [facility];[address] | K/uL | LAB | | | | [place] | | [facility] | | | | [address];[place] [address] | | LABORATORY | | + + + + + + + + | Specimen | + + | Blood | + + + + + + + | Performing | Address | City/State/Zipcode | Phone Number | | Organization | | | | + + + + + | REFERENCE LAB | [address] | [place] | [phone] | | [facility] | Bl[address]. | [address] | | | LABORATORY | | | | + + + + + | REFERENCE LAB | [address] | [place] | | | [facility] | Blvd. | [address] | | | LABORATORY | | | [...] REFERENCE | | | | performed at [facility];[address] | | LAB | | | | [place] | | [facility] | | | | Blvd;[place] [address] | | LABORATORY | | + + + + + + + + | Specimen | + + | Blood | + + + + + + + | Performing | Address | City/State/Zipcode | Phone Number | | Organization | | | | + + + + + | REFERENCE LAB | [address] | [place] | [phone] | | [facility] | Bl[address]. | [address] | | | LABORATORY | | | | + + + + + | REFERENCE LAB | [address] | [place] | | | [facility] | Blvd. | [address] | | | LABORATORY | | | [...] | | | | | performed at [facility];[address] | | | | | | [facility] | | | | | | vd;[place] [address] | | | | | | | | | | + + + + + + + + | Specimen | + + | Blood | + + + + + + + | Performing | Address | City/State/[facility] | Phone Number | | Organization | | | | + + + + + | REFERENCE LAB | [address] [place] [address] | [place], [place] | [phone] | | [facility] | Bl[address]. | [address] | | | LABORATORY | | | | + + + + + | REFERENCE LAB | [address] [place] [address] | [place], [place] | | | [facility] | Bl[address]. | [address] | | | LABORATORY | | | | + + + + + from Last 3 Months Insurance + +--------+ +--------+ +---------+--------+ | Payer | Benefi | Subscriber | Effect | Phone | Address | Type | | | t Plan | ID | zev | | | | | | / | | Dates | | | | | | Group | | | | | | + +--------+ +--------+ +---------+--------+ | MEDICARE | MEDICA | [id number] | 06/01/19 | [phone] | | Medica | | | RE | | 20-Pre | 5 | | re | | | PART A | | sent | | | | | | AND B | | | | | | + +--------+ +--------+ +---------+--------+ | MEDICARE | MEDICA | [id number] | 06/01/19 | [phone] | | Medica | | | RE | | 20-Pre | 5 | | re | | | PART A | | sent | | | | | | AND B | | | | | | + +--------+ +--------+ +---------+--------+ | [employer] | MODA | [id number] | | [phone] | Medica | | MEDICAID HMO | HEALTH | | 012-Pr | 1 | | id | | | MDCD | | esent | | | | | | [place] | | | | | | + +--------+ +--------+ +---------+--------+ | [employer] | MODA | [id number] | | [phone] | | Medica | | MEDICAID HMO | HEALTH | | 019-Pr | 1 | | id | | | MDCD | | esent | | | | | | [place]MO [place] | | | | | | + +--------+ +--------+ +---------+--------+ + +--------+ +--------+ + + | Guarantor Name | Accoun | Relation to | Date | Phone | Billing Address | | | t Type | Patient | of | | | | | | | | | | + +--------+ +--------+ + + | Thea Carmona | Person | Self [birth year] | [address] | | [place] | al/Fam | | 1945 | [phone] | [place] | | | jana | | | 1 (Home) | [address] | + +--------+ +--------+ + + | Thea Carmona | Person | Self | [birth year] | [address] | | [place] | al/Anant | | 1945 | [phone] | [place] | | | [place] | | | 1 (Home) | [address] | + +--------+ +--------+ + + Advance Directives + + + + + | Type | Date Recorded | Patient | Explanation | | | | 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 | | + + + + + | Power of | | | | | [employer] Polisher Operator | | | | + + + + + | Advance | 12/09/2018 11:31 | | | | Directive | AM | | | + + + + + + + + + + | Code Status | Date | Date | Comments | | | Activated | Inactivated | | + + + + + | Full Code | 12/14/2018 | 12/14/2018 | | | | 3:36 PM | 3:41 PM | | + + + + + + + + +---+ | | | | | + + + +---+ | Full Code | 09/01/2018 | 09/04/2018 | | | | 7:07 PM | 4:59 PM | | + + + +---+ + + + +---+ | | | | | + + + +---+ | Full Code | 10/27/2017 | 10/27/2017 | | | | 12:22 PM | 4:19 PM | | + + + +---+ + + + +---+ | | | | | + + + +---+ | Full Code | 10/03/2015 | 10/06/2015 | | | | 5:23 AM | 3:41 PM | | + + + +---+ + + + +---+ | | | | | + + + +---+ | Full Code | 03/20/2015 | 03/20/2015 | | | | 2:09 PM | 4:34 PM | | + + + +---+
--- OUTSIDE RECORDS SUMMARY | ~2019-12-28 | XMS | Encounter Summary ---
Demographics + + + | Address | [address] | | | [place] [address] | + + + | Home Phone [...] [place] | | | | | [address] | | + + + + + Care Team Providers + +------+ + | Care Rn Visiting Name | Role | Phone | + [...] [facility] [address] | address | lung, right (HCC) | | | | [address] | | (Primary Dx) | | | | [place] [address] | | | | | | [phone] | | | +--------+ + + + [...] Lu MD - 09/12/2014 9:34 AM PDT .[facility] Hem-Onc Progress Note [facility] Patient name:Thea Carmona : 1945 Age: 69 y.o. CSN: [id number] Date of Service: 09/12/2014 Identifying Statement: Thea Carmona is a 69 y.o. female from [facility] with clinical stage II, non-small cell lung [...] Dr. Beltran , thoracic surgeon at [facility] for consideration of broncho scopy, right [...] [facility]) [facility] prednisone and [facility]otrexate[facility] on simvastatin Hypertension on clonidine [...] mg by mouth Daily. RESPIRATORY THERAPY SUPPLIES [employer] ResMed S9 auto CPAP 5-9 cm H2O. Heater and Humidifier . All necessary supplies. AHI 11.6. Diagnosis Code(s)327.23, also has co morbid hypertension , history of stroke. Length of Need 99 months. Please send order to [facility]. 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 Recurrence of non-small cell lung cancer in June 2014 3. Comorbidities with rheumatoid arthritis on methotrexate, history of stroke in 2005 and 2007 on aspirin and Plavix 4. [...] this chart may have been created with [employer] voice recognition software. Occasi onal wrong-word or [...] | 2019 | Visit | | [facility] [address] | | | | | | [facility] | | | | | | [place] [address] | | | | | | [phone] | | | | | | | | +--------+---------+ + + + documented as of this encounter Visit Diagnoses + + | Diagnosis | + + | Recurrent squamous cell carcinoma of lung, right (HCC) - Primary | + + documented in this encounter"
--- OUTSIDE RECORDS SUMMARY | ~2019-12-28 | XMS | Encounter Summary ---
Demographics + + + | Address | [address] | | | [place] [address] | + + + | Home Phone | | + + + | Preferred Language | Unknown | + + + | Marital Status | | + + + | Shinto Affiliation | Unknown | + + + | Race | Unknown | + + + | Ethnic Group | Unknown | + + + Author + + + | Author | [facility] | | | and [place] | + + + | Organization | [facility] | | | [...] [place] | | | | | [address] | | + + + + + Care Team Providers + +------+ + | Care Aquatics Instructor Name | Role | Phone | [...] + + | 09/06/ | Office | [facility] | Giuliano Padilla, | Trigger finger of | | 2019 | Visit | ORTHOPEDIC SURGERY | MD [address] | left thumb (Primary | | | | [address] [place] | [place] | Dx); Trigger finger, | | | | [place] | [address] | left ring finger; | | | | [address] | | Trigger middle | | | | [phone] | | finger of left hand | [...] i n this encounter Plan of Treatment +--------+---------+ + + + | Date | Type | Specialty | Care Team | Description | +--------+---------+ + + + | 03/06/ | Office | Rheumatology | Santosh Sumner, | | | 2019 | Visit | | [facility] [address] | | | | | [facility] | | | | | | [place] [address] | | | | | | [phone] | | | | | | | [...]
--- OUTSIDE RECORDS SUMMARY | ~2019-12-28 | XMS | Encounter Summary ---
Demographics + + + | Address | [address] | | | [place] [address] | + + + | Home Phone | | + + + | Preferred Language | Unknown | + + + | Marital Status | Single | + + + | Presybeterian Affiliation | Unknown | + + + | Race | White | + + + | Ethnic Group | Not or | + + + Author + + + | Author | [facility] | + + + | Organization | [facility] | + + + | Address | Unknown | + + + | Phone | Unavailable | + + + Support + + +---------+ + | Name | Relationship | Address | Phone | + + +---------+ + | Mirza Bee | ECON | Unknown | | + + +---------+ + Care Team Providers + +------+ + | Care Psychodramatist Name | Role | Phone | + [...] [address] | | | | | | [place] | | | | | | [address] | | | +--------+ + + + [...]
--- OUTSIDE RECORDS SUMMARY | ~2019-12-28 | XMS | Encounter Summary ---
Demographics + + + | Address | [address] | | | [place] [address] | + + + | Home Phone [...] [place] | | | | | [address] | | + + + + + Care Team Providers + +------+ + | Care Header Machine Operator Name | Role | Phone | + +------+ + | Caitlin Jackson MD | PCP | | + +------+ [...] atrial | [address] | | | | | fibrillation | [address] | [place], | | | | | with rapid | [place], | [place] | | | | | ventricular | [place] [address] | [address] | | | | | response | Phone: | Phone: | | | | | ([facility]) Heart | [phone] | [phone] | | | | | | Fax: | Fax: | | | | | palpitations | [phone] | [phone] | | | | | Atrial | | | | | | | fibrillation | | | | | | | with RVR | | | | | | | ([facility]) | | | +--------+ + + + [...] | | | | Trigger | | [place] [id number] | | | | | finger, left | | Phone: | | | | | ring finger | | [phone] | | | | | Trigger | | Fax: | | | | | middle | | [phone] | | | | | finger of | | | | | | | left hand | | | | | | | Procedures | | | | | | | ME INCISE | | | | | | [...] + + | 09/28/ | Emergency | [facility] | Jf Coleman, | Paroxysmal atrial | | 2019 | | [facility] EM[facility] | MD [address] | fibrillation with | | | | CENTER [address] | [place], [place] | rapid ventricular | | | | [place], [place] | [address] | response ([facility]) | | | | [address] | | (Primary Dx); Heart | | | | [phone] | | palpitations; Atrial | | | | | | fibrillation with | | | | | | RVR ([facility]) | +--------+ + + + + Social [...] Everywhere.Living with Atr ial Fibrillation: Preventing Stroke (Czech)documented in this encounter Medications at Time of [...] CAMPUS) | | | | | | + [...] + + documented as of this encounter Radha Lovelace RN - 09/28/2018 1:37 PM PDTPt here from pre-op with irregular hear beat with a rate of 120's. Pt denies hx of A-fib. Pt appears to be short of breath, reports that is normal for her. Hx of COPD. Electronically signed by Radha Simon RN at 1:39 PM PDTJf Coleman MD - 09/28/2018 1:33 PM PDTFormatting of this note mi ght be different from the original. Chief Complaint: "my heart is going crazy" HPI: This patient presents to the Emergency Department with feelings of an irregular heart beat. Patient is very uncertain of the time of onset. She was NPO because she was awaiting a surgery and showed up in same day surgery with a heart rate of 121 and was in new onset a trial fibrillation. Off her coumadin and she reports she was holding it because of the need for surgery. No fevers and no vomiting. No other major changes to her health. She notes that she has been having about 15 pounds of weight gain over 1 week, having swelling to her ankles, swelling to her legs, and feeling increasingly short of breath for the last 4 to 5 d ays. The symptoms are severe Past Medical and Surgical History Past Medical History: Diagnosis Date Acid reflux disease Arthritis COPD (chronic obstructive pulmonary disease) ([facility]) on albuterol Depression HONG (dyspnea on exertion) Full dentures upper & lower GERD (gastroesophageal reflux disease) Hyperlipidemia on simvastatin Hypertension on clonidine and lisinopril Hypothyroidism Obesity MARCE (obstructive sleep apnea) AHI 11.6 no CPAP Osteoporosis Pneumonia 2008 hospitalized 5 days 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 Lewis, [place] Spinal stenosis has tried cortisone injections Spondylolisthesis of cervical region Sputum culture positive for Scopulariopsis species Squamous cell carcinoma of lung (HCC) 07/2013 right lower lobe Stroke ([facility]) 2006 Stroke ([facility]) 2007 Upper GI bleed 06/[address] [facility] [facility] Past Surgical History: Procedure Laterality Date BACK SURGERY 03/2014 BLADDER SUSPENSION BRONCHOSCOPY 07/11/2014 EBUS with right hilar LN biopsy, [facility] Dr. [place] CERVICAL SPINE SURGERY 2012 CHOLECYSTECTOMY COLONOSCOPY 06/2014 ENDOSCOPY HAND ARTHROPLASTY Left 03/20/2015 Procedure: Left 1st C.M.C. 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 albuterol-ipratropium (DUONEB) 2.5-0.5 mg/3 mL SOLN Take 3 mLs by nebulization 4 times daily. CASIE: 12 months Dx: J44.9 BREO ELLIPTA 100-25 MCG/INH inhaler Inhale 1 puff into the lungs Daily. cholecalciferol (VITAMIN D-3) 1,000 units capsule Take 2,000 Units by mouth Daily. folic acid 1 mg tablet Take 1 mg by mouth Daily. GUAIATUSSIN AC 100-10 MG/5ML syrup Take 5 mLs by mouth Daily as needed. levothyroxine (SYNTHROID, LEVOTHROID) 125 mcg tablet Take 125 mcg by mouth every mornin g (before breakfast). loperamide (IMODIUM) 2 mg capsule Take 2 mg by mouth as needed. methotrexate 2.5 MG tablet take 6 tablets by mouth every week mirtazapine (REMERON) 15 MG tablet Take 15 mg by mouth nightly. NARCAN 4 MG/0.1ML instill 1 spray in 1 NOSTRIL if needed for opioid overdose may re... (REFER TO PRESCRIPTION NOTES). pantoprazole (PROTONIX) 40 mg tablet Take 40 mg by mouth 2 times daily (before meals). potassium chloride (K-DUR) 20 mEq ER tablet Take 20 mEq by mouth Daily. predniSONE (DELTASONE) 5 mg tablet take 2 tablets by mouth every morning Respiratory Therapy Supplies (NEBULIZER COMPRESSOR) KIT Use as directed with nebulizer medication. Dx: J43.1 CASIE: 99 months roflumilast (DALIRESP) 500 mcg tablet Take 1 tablet by mouth. simvastatin (ZOCOR) 40 mg tablet Take 40 mg by mouth nightly. tiotropium (SPIRIVA) 18 mcg inhalation capsule Inhale 18 mcg into the lungs Daily. venlafaxine (EFFEXOR XR) 75 mg 24 hr tablet take 1 tablet by mouth every morning AT THE SAME TIME EACH DAY WITH FOOD warfarin (COUMADIN) 5 mg tablet Take 5 mg by mouth Daily. 5MG 3 times weekly and 4 1/2 tablet other days. 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 Respiratory: Positive for shortness of breath. Cardiovascular: Positive for palpitations. Gastrointestinal: Positive for abdominal pain and nausea. Neurological: Positive for dizziness. "I have been so exhausted and dizzy and short of breath for the last 4-5 days" As in history of present illness. A 10 system review was otherwise negative. Physical Examination VITAL SIGNS: (first vital signs):Temp: 36.4 C (97.6 F) Pulse: 121 Resp: 22 SpO2: 97 % B P: (!) 132/95 Body mass index is 29.26 kg/m. Constitutional: female patient, pleasant, alert and appropriate, conversant with nurse and staff. HEENT: Atraumatic, patient follows me around the room with their eyes, PERRL, Oropharynx s hows no redness, moist mucus membranes. Neck: Supple with full range of motion. No JVD, lymphadenopathy, or meningismus. Respiratory: Poor air movement bilaterally. Expiratory wheezes, no rales. Patient's work o f breathing is mildly increased Cardiovascular: Irregular irregular heart rate with no rubs or murmurs Abdomen: Soft, nontender. No rebound, guarding, or masses. Bowel tones normal. No pulsa tile masses Back: No CVA tenderness. No midline thoracic or lumbar spinal tenderness. Extremities: Nontender. There is moderate pitting edema, no calf asymmetry. Present distal pulses. Skin: Warm, Dry, No obvious rashes. Capillary refill is brisk <3 seconds and shows good p erfusion on areas of visible skin. Neurologic: Alert & oriented. Cranial nerves II-XII intact. No focal deficits. Gait is n ormal. Speech is normal. Psychiatric: Normal mood, affect and judgement. No evidence of suicidal or homicidal idea tion at this time. Labs Results for orders placed or performed during the hospital encounter of 09/28/18 CBC with Differential Result Value Ref Range WBC 10.3 4.0 - 11.0 K/uL RBC 3.88 3.70 - 5.20 M/uL Hemoglobin 11.3 (L) 11.5 - 16.0 g/dL Hematocrit 36.5 34.0 - 47.0 % MCV 94.1 83.0 - 101.0 fL MCH 29.1 28.0 - 35.0 pg MCHC 31.0 (L) 32.0 - 36.0 g/dL RDW-CV 19.2 (H) <15.0 % RDW-SD 65.4 (H) 35.1 - 46.3 fL Platelet Count 305 140 - 440 K/uL MPV 9.0 6.5 - 12.4 fL % Neutrophils 86.8 (H) 45.0 - 82.0 % % Lymphocytes 6.6 (L) 20.0 - 45.0 % % Monocytes 5.4 4.0 - 12.0 % % Eosinophils 0.1 0.0 - 5.0 % % Basophils 0.2 0.0 - 1.0 % % Immature Granulocytes 0.9 (H) 0.0 - 0.4 % Absolute Neutrophils 8.91 (H) 1.80 - 8.50 K/uL Absolute Lymphocytes 0.68 0.60 - 3.20 K/uL Absolute Monocytes 0.55 0.00 - 1.00 K/uL Absolute Eosinophils 0.01 0.00 - 0.40 K/uL Absolute Basophils 0.02 0.00 - 0.10 K/uL Absolute Immature Granulocytes 0.09 (H) 0.00 - 0.03 K/uL % nRBC 0 0 - 2 per 100 WBCs Absolute nRBC 0.02 (H) 0.00 - 0.01 K/uL Comprehensive Metabolic Panel Result Value Ref Range Na 140 136 - 145 mmol/L K 3.9 3.4 - 5.1 mmol/L Cl 107 98 - 107 mmol/L CO2 25 20 - 31 mmol/L Anion Gap 8 3 - 16 mmol/L Glucose 105 60 - 106 mg/dL BUN 14 9 - 23 mg/dL Creatinine 0.92 0.55 - 1.02 mg/dL eGFR if not 60 >=60 mL/min/1.73m2 Ca 9.7 8.7 - 10.4 mg/dL Albumin 4.1 3.2 - 4.8 g/dL Bilirubin Total 0.5 0.3 - 1.2 mg/dL Total Protein 6.3 5.7 - 8.2 g/dL AST 23 0 - 34 U/L ALT 21 10 - 49 U/L Alkaline Phosphatase 67 46 - 116 U/L Globulin 2.2 2.1 - 3.8 g/dL Albumin/Globulin Ratio 1.9 0.8 - 1.9 BUN/Creatinine Ratio 15.2 Troponin I Result Value Ref Range Troponin I 0.01 <0.06 ng/mL Protime INR Result Value Ref Range Prothrombin Time 13.4 11.3 - 13.9 seconds INR 1.0 0.9 - 1.1 B Type Natriuretic Peptide Result Value Ref Range BNP 82 <100 pg/mL ECG 12 lead Result Value Ref Range INTERPRETATION TEXT Not Confirmed Imaging Recent imaging: Recent Results (from the past 360 hour(s)) XR Chest AP Portable Narrative XR CHEST AP PORTABLE 09/28/2018 1:54 PM HISTORY: IRREGULAR HEART BEAT. COMPARISON: Multiple priors. Findings: There is a left Port-A-Cath with tip in the distal SVC. Heart size is normal. Aorta is normal. Mediastinum is unremarkable. Central pulmonary vasculature is normal. Stable ill-defined haziness is in the right hilar region corresponding to a soft tissue lesion on the CT scan of 09/02/2018. There remains blunting of the right costophrenic angle that could represent scarring versus a chronic small right pleural effusion. The left lung is grossly clear. There is no evidence for pneumothorax. No acute osseous abnormalities are seen. Shortening of the right clavicle is visualized that could be due to prior acromioplasty. IMPRESSION - Stable ill-defined haziness in the right hilar region corresponding to a soft tissue lesion on the CT scan of 09/02/2018. Stable blunting of right costophrenic angle, possibly due to scarring versus chronic small right pleural effusion. Dictated and Signed by: Matheus Kapadia MD Electronically signed: 09/28/2018 2:51 PM Medical Decision Making Pertinent Labs & Imaging studies were reviewed along with EMS notes and skilled nursing record s if applicable. Medication and allergy lists reviewed in PSYCHIATRIC. Nursing notes and old carli rds were reviewed if available within PSYCHIATRIC. ER course: 13:33 - Patient care initiated. After introducing myself to the patient, I performed a car eful history and physical examination. This is a very pleasant patient who appears to have acute congestive heart failure. The pa tiedavis will benefit from a full cardiac work-up, potential admission, and likely diuresis. W e will then reevaluate. 15:15. At this time, the patient is doing well. She has converted out of atrial fibrillat ion into normal sinus with only 10 mg Cardizem IV. [facility] notes that she is not a candidate at this time for surgical repair. T he case was also discussed with Dr. Blue of cardiology. He recommends we start Cardizem ext ended release 180 mg tablet daily and then have patient follow-up with him in the office. T his patient is currently taking Coumadin and prefers to go back on Coumadin for risk prevent ion for stroke. We will resume the Coumadin and recommend outpatient follow-up Emergency Department EKG interpretation: September 28, 2018 at 13:15 Rate: 121 Rhythm: Atrial fibrillation with RVR ME interval: Not present QRS: Normal ST segments: Normal T-waves: Normal Comments: No acute ichemia Last Set of Vital Signs: Temp: 36.4 C (97.6 F) Pulse: 84 Resp: 25 SpO2: 96 % BP: 119/72 Impression 1. Paroxysmal atrial fibrillation with rapid ventricular response (HCC) 2. Heart palpitations 3. Atrial fibrillation with RVR (HCC) Disposition: Discharge home Condition: Stable Follow-up Information Schedule an appointment as soon as possible for a visit with Caitlin Jackson MD. Specialty: Internal Medicine Contact information: [address] [place] [address] Schedule an appointment as soon as possible for a visit with Jemma Peterson MD. Specialty: Cardiology Contact information: [address] [facility] [id number] New Prescriptions DILTIAZEM (CARDIZEM CD) 180 MG 24 HR CAPSULE Take 1 capsule by mouth Daily. Discontinued Medications No medications on file Discharge References/Attachments Living with Atrial Fibrillation: Preventing Stroke (Czech) Administrations This Visit dilTIAZem (CARDIZEM) injection 10 mg Admin Date 09/28/2018 Action Given Dose 10 mg Route Intravenous Administered By Radha Simon RN A voice recognition software has been used to create this chart. Occasional wrong-word or sound-alike substitutions may have occurred due to the inherent limitations of voice r ecognition software. Please read the chart carefully and recognize, using context, where the se substitutions have occurred. Jf Coleman MD 09/28/18 1517 documented in this e ncounter Plan of Treatment +--------+---------+ + + + | Date | Type | Specialty | Care Team | Description | +--------+---------+ + + + | 03/06/ | Office | Rheumatology | Santosh Sumner, | | | 2019 | Visit | | PA-C [address] | | | | | [facility] | | | | | | [place] [address] | | | | | | [phone] | | | | | | | [...] | | | | | with RVR ([facility]) | | + + +--------+ + + [...] | + +--------+ + + + | ED INFORMATION | Routin | 09/28/2018 | | | | EXCHANGE | e | 1:35 PM | | | | | | PDT | | | + +--------+ + + + +---+--------+ | | | | | Proced | | | ure | | | Note - | | | Lina, | | | Lab In | | | | | | Hlseve | | | n - | | | 09/28/ | | | 2018 | | | 1:36 | | | PM PDT | | | | | | Format | | | ting | | | of | | | this | | | note | | | might | | | be | | | differ | | | ent | | | from | | | the | | | origin | | | al.COL | | | LECTIV | | | E?NOTI | | | FICATI | | | ON?/ | | | | | | 9 | | | 13:33? | | | HENSLE | | | Y, | | | THEA | | | L?MRN: | | | | | | [id number] | | | [id number] | | | riteri | | | a Met | | | Care | | | Guidel | | | inesSe | | | curity | | | and | | | Safety | | | No | | | recent | | | | | | Securi | | | ty | | | Events | | | | | | curren | | | tly on | | | | | | fileED | | | Care | | | Guidel | | | inesTh | | | ere | | | are | | | curren | | | tly no | | | ED | | | Care | | | Guidel | | | j luis | | | for | | | this | | | patien | | | t. | | | Please | | | check | | | your | | | facili | | | ty's | | | medica | | | l | | | record | | | s | | | system | | | .Care | | | Histor | | | yMedic | | | al/Reji | | | [email or web address] | | | /22/19 | | | 12:00 | | | AM | | | [facility] | | al | | | Patien | | | t is | | | curren | | | tly | | | establ | | | ished | | | with | | | [facility] | | [facility] | | | . If | | | patien | | | t is | | | seen | | | in the | | | ED | | | during | | | | | | busine | | | ss | | | hours. | | | | | | Please | | | | | | contac | | | t [facility] at [facility] | | | | | [facility] | | | .Care | | | Recomm | | | endati | | | on:Thi | | | s | | | patien | | | t has | | | had 5 | | | or | | | more | | | Emerge | | | ncy | | | Depart | | | ment | | | visits | | | in | | | the | | | last | | | 12 | | | months | | | .? | | | Patien | | | t | | | requir | | | es | | | educat | | | ion on | | | the | | | scope | | | and | | | purpos | | | e of | | | the ED | | | as an | | | acute | | | care | | | provid | | | er not | | | a | | | Primar | | | y Care | | | | | | Provid | | | er and | | | | | | should | | | not | | | be | | | utiliz | | | ed for | | | | | | chroni | | | c | | | condit | | | ions.? | | | These | | | are | | | guidel | | | j luis | | | and | | | the | | | provid | | | er | | | should | | | | | | exerci | | | se | | | clinic | | | al | | | judgme | | | nt | | | when | | | provid | | | ing | | | care.P | | | rescri | | | ption | | | Drug | | | Report | | | (12 | | | Mo.)PD | | | MP | | | query | | | found | | | no | | | report | | | .E.D. | | | Visit | | | Count | | | (12 | | | mo.)Fa | | | cility | | | | | | Visits | | | Low | | | Acuity | | | | | | Provid | | | ence | | | [facility] | | [facility] | Med[facility] | | | l | | | Center | | | 1 0 | | | [facility] | | | al 4 0 | | | Total | | | 5 0 | | | Note: | | | Visits | | | | | | indica | | | te | | | total | | | known | | | visits | | | . | | | Medica | | | id Low | | | | | | Acuity | | | Dx | | | are | | | the | | | number | | | of | | | primar | | | y | | | diagno | | | ses on | | | the | | | Medica | | | id's | | | Low | | | Acuity | | | dx | | | list. | | | | | | Recent | | | | | | Emerge | | | ncy | | | Depart | | | ment | | | Visit | | | [facility] | | | yDate | | | Facili | | | ty | | | City | | | State | | | Type | | | Diagno | | | ses or | | | Chief | | | | | | Compla | | | int | | | Apr | | | 30, | | | 2019 | | | Provid | | | ence | | | [facility] | | [place] | | | [place] | | | Emerge | | | ncy | | | Mar | | | 20, | | | 2019 | | | [facility] | | | [place] | | | [place] | | | Emerge | | | ncy | | | Chief | | | Compla | | | int: | | | COPD | | | EXACER | | | BATION | | | Mar | | | 4, | | | 2019 | | | [facility] | | | [place] | | | [place] | | | Emerge | | | ncy | | | Pain | | | in | | | left | | | should | | | er | | | Bursit | | | is of | | | left | | | should | | | er | | | Person | | | al | | | histor | | | y of | | | nicoti | | | ne | | | depend | | | ence | | | | | | Person | | | al | | | histor | | | y of | | | transi | | | ent | | | ischem | | | ic | | | attack | | | | | | (TIA), | | | and | | | cerebr | | | al | | | infarc | | | tion | | | withou | | | t | | | residu | | | al | | | defici | | | ts | | | Long | | | term | | | (curre | | | nt) | | | use of | | | | | | antico | | | agulan | | | ts | | | Chroni | | | c | | | obstru | | | ctive | | | pulmon | | | elia | | | diseas | | | e, | | | unspec | | | ified | | | | | | Essent | | | ial | | | (prima | | | ry) | | | hypert | | | ension | | | | | | Other | | | long | | | term | | | (curre | | | nt) | | | drug | | | therap | | | y Sep | | | 10, | | | 2018 | | [facility] [place] | | | [place] | | | Emerge | | | ncy | | | Chief | | | Compla | | | int: | | | FEVER, | | | WEAK | | | Aug | | | 27, | | | 2018 | | [facility] | | | [place] | | | [place] | | | Emerge | | | ncy | | | Chief | | | Compla | | | int: | | | SOB | | | Recent | | | | | | Inpati | | | ent | | | Visit | | | [facility] | | | yDate | | | Facili | | | ty | | | City | | | State | | | Type | | | Diagno | | | ses or | | | Chief | | | | | | Compla | | | int | | | Apr 3, | | | 2019 | | | Provid | | | ence | | | [facility] | [facility] | | [place] | | | [place] | | | Medica | | | l | | | Surgic | | | al | | | Right | | | Lower | | | Lobe | | | Pneumo | | | sabra | | | | | | Chroni | | | c | | | obstru | | | ctive | | | pulmon | | | elia | | | diseas | | | e with | | | | | | (acute | | | ) | | | exacer | | | bation | | | | | | Acute | | | pulmon | | | elia | | | manife | | | statio | | | ns due | | | to | | | radiat | | | ion | | | | | | Rheuma | | | toid | | | arthri | | | tis, | | | unspec | | | ified | | | | | | Chroni | | | c | | | obstru | | | ctive | | | pulmon | | | elia | | | diseas | | | e, | | | unspec | | | ified | | | | | | Hyperl | | | ipidem | | | ia, | | | unspec | | | ified | | | | | | Malign | | | ant | | | neopla | | | sm of | | | unspec | | | ified | | | part | | | of | | | right | | | bronch | | | us or | | | lung | | | | | | Person | | | al | | | histor | | | y of | | | pulmon | | | elia | | | emboli | | | sm | | | Other | | | specif | | | ied | | | soft | | | tissue | | | | | | disord | | | ers | | | | | | Hypoth | | | yroidi | | | sm, | | | unspec | | | ified | | | Mar | | | 20, | | | 2019 | | | [facility] [place] | | | Medica | | | l | | | Surgic | | | al | | | Chroni | | | c | | | obstru | | | ctive | | | pulmon | | | elia | | | diseas | | | e with | | | | | | (acute | | | ) | | | exacer | | | bation | | | | | | Person | | | al | | | histor | | | y of | | | pulmon | | | elia | | | emboli | | | sm | | | Long | | | term | | | (curre | | | nt) | | | use of | | | | | | inhale | | | d | | | steroi | | | ds | | | Hyperl | | | ipidem | | | ia, | | | unspec | | | ified | | | | | | Malign | | | ant | | | neopla | | | sm of | | | unspec | | | ified | | | part | | | of | | | unspec | | | ified | | | bronch | | | us or | | | lung | | | | | | Hypoth | | | yroidi | | | sm, | | | unspec | | | ified | | | | | | Acute | | | respir | | | atory | | | failur | | | e with | | | | | | hypoxi | | | a | | | Nontra | | | umatic | | | | | | hemato | | | ma of | | | soft | | | tissue | | | | | | Unspec | | | ified | | | mood | | | [affec | | | tive] | | | disord | | | er | | | Long | | | term | | | (curre | | | nt) | | | use of | | | | | | system | | | ic | | | steroi | | | ds | | | Sep | | | 10, | | | 2018 | | | [facility] | [facility] [place] | | | Medica | | | l | | | Surgic | | | al | | | Sepsis | | | due | | | to | | | Pseudo | | | monas | | | | | | Psycho | | | physio | | | logic | | | insomn | | | ia | | | Malign | | | ant | | | neopla | | | sm of | | | unspec | | | ified | | | part | | | of | | | unspec | | | ified | | | bronch | | | us or | | | lung | | | | | | Rheuma | | | toid | | | arthri | | | tis, | | | unspec | | | ified | | | | | | Pneumo | | | sabra, | | | unspec | | | ified | | | organi | | | sm | | | Sepsis | | | , | | | unspec | | | ified | | | organi | | | sm | | | Chroni | | | c | | | obstru | | | ctive | | | pulmon | | | elia | | | diseas | | | e, | | | unspec | | | ified | | | | | | Insomn | | | ia, | | | unspec | | | ified | | | | | | Unspec | | | ified | | | mood | | | [affec | | | tive] | | | disord | | | er | | | Long | | | term | | | (curre | | | nt) | | | use of | | | | | | antico | | | agulan | | | ts | | | Aug | | | 27, | | | 2018 | | | [facility] | | | [facility] | | | [place] | | | [place] | | | Observ | | | ation | | | | | | Hyperl | | | ipidem | | | ia, | | | unspec | | | ified | | | | | | Essent | | | ial | | | (prima | | | ry) | | | hypert | | | ension | | | | | | Spinal | | | | | | stenos | | | is, | | | site | | | unspec | | | ified | | | | | | Long | | | term | | | (curre | | | nt) | | | use of | | | | | | system | | | ic | | | steroi | | | ds | | | Other | | | pulmon | | | elia | | | emboli | | | sm | | | withou | | | t | | | acute | | | cor | | | pulmon | | | dayanna | | | | | | Chroni | | | c | | | obstru | | | ctive | | | pulmon | | | elia | | | diseas | | | e, | | | unspec | | | ified | | | | | | Rheuma | | | toid | | | arthri | | | tis, | | | unspec | | | ified | | | | | | Person | | | al | | | histor | | | y of | | | transi | | | ent | | | ischem | | | ic | | | attack | | | | | | (TIA), | | | and | | | cerebr | | | al | | | infarc | | | tion | | | withou | | | t | | | residu | | | al | | | defici | | | ts | | | Long | | | term | | | (curre | | | nt) | | | use of | | | | | | antith | | | rombot | | | ics/an | | | tiplat | | | elets | | | | | | Nicoti | | | ne | | | depend | | | ence, | | | unspec | | | ified, | | | | | | uncomp | | | licate | | | d | | | Care | | | Provid | | | ersPro | | | vider | | | PRC | | | Type | | | Phone | | | Fax | | | Servic | | | e | | | Dates | | | Kannie | | | r, | | | Wyndi | | | Case | | | Manage | | | r/Care | | | | | | Coordi | | | nator | | | ([phone]) | | | [phone] | | | 29 | | | Oct 1, | | | 2012 | | | - | | | Curren | | | t | | | LUNDQU | | | IST, | | | LEONELA | | | OPHER | | | J, | | | M.D. | | | Family | | | | | | Medici | | | ne | | | Sep | | | 11, | | | 2018 - | | | | | | Curren | | | t | | | JACKSON, | | | | | | LOHITH | | | | | | VEERAP | | | PA, MD | | | | | | Teacher Private | | | al | | | Medici | | | ne | | | [phone]) | | | [phone] | | | 69 | | | Mar 5, | | | 2019 | | | - | | | Curren | | | t | | | Kannie | | | r, | | | Wyndi | | | Primar | | | y Care | | | ([phone]) | | | | | | [phone] | | | 29 | | | Oct 1, | | | 2012 | | | - | | | Curren | | | t | | | LEONELA | | | OPHER | | | J | | | LUNDQU | | | IST | | | Primar | | | y Care | | | Oct | | | 1, | | | 2015 - | | | | | | Curren | | | t | | | Unknow | | | n | | | Other | | | | | | Curren | | | t | | | Collec | | | tive | | | Portal | | | This | | | patien | | | t has | | | regist | | | ered | | | at the | | | | | | Provid | | | ence | | | [facility] | [facility] | | | l | | | [facility] | | | | | | Emerge | | | ncy | | | Depart | | | ment | | | For | | | more | | | inform | | | ation | | | visit: | | | | | | https: | | | //secu | | | [email or web address] | | | ecarep | | | [email or web address] | | | m/irma | | | ent/28 | | | [id number] | | | -[id number] | | | [id number] | | | f43-[id number] | | | [id number] | | | [phone] | | | andnbs | | | p | | | PLEASE | | | NOTE: | | | 1. | | | Any | | | care | | | recomm | | | endati | | | ons | | | and | | | other | | | clinic | | | al | | | inform | | | ation | | | are | | | provid | | | ed as | | | guidel | | | j luis | | | or for | | | | | | histor | | | ical | | | purpos | | | es | | | only, | | | and | | | provid | | | ers | | | should | | | | | | exerci | | | se | | | their | | | own | | | clinic | | | al | | | judgme | | | nt | | | when | | | provid | | | ing | | | care. | | | 2. | | | You | | | may | | | only | | | use | | | this | | | inform | | | ation | | | for | | | purpos | | | es of | | | treatm | | | ent, | | | paymen | | | t or | | | health | | | care | | | operat | | | ions | | | activi | | | ties, | | | and | | | subjec | | | t to | | | the | | | limita | | | tions | | | of | | | applic | | | able | | | Collec | | | tive | | | Polici | | | es. | | | 3. | | | You | | | should | | | | | | consul | | | t | | | direct | | | ly | | | with | | | the | | | organi | | | zation | | | that | | | provid | | | ed a | | | care | | | guidel | | | ine or | | | other | | | | | | clinic | | | al | | | histor | | | y with | | | any | | | questi | | | ons | | | about | | | additi | | | onal | | | inform | | | ation | | | or | | | accura | | | cy or | | | comple | | | teness | | | of | | | inform | | | ation | | | provid | | | ed.? | | | 2019 | | | Collec | | | tive | | | Medica | | | l | | | Techno | | | logies | | | , Inc. | | | - | | | [email or web address] | | | llecti | | | vemedi | | | [email or web address] | | | m | +---+--------+ + +--------+ +---+ + | ECG 12 LEAD | Routin | 09/28/2018 | | Results for this | | | e | 1:15 PM | | procedure are in the | | | | PDT | | results section. | + +--------+ +---+ + documented in this encounter Results ECG [...] | | | | DIANA SMART MD ([id number]) | | | | | | on [...] | Procedure Note | + + | Lina, Rad Results In - 09/28/2018 2:55 PM [...] BNP | 82 | <100 pg/mL | [facility] | | | | | | [facility] | | | [facility] | [facility] | | | | | | C[facility] - | | | | | | LABORATORY | | + +-------+ + + + + + | Specimen | + + | Blood | + + + + + + + | Performing | Address | City/State/[facility] | Phone Number | | Organization | | | | + + + + + | [facility] | [address] | [place] | [phone] | | [facility] | | [address] | | | - LABORATORY | | [...] | | | Anticoagulation Range: | | [facility] | | | | 2.0 - 3.0High [...] [address] | [place] | [phone] | | [facility] | | [address] | | | - LABORATORY | | [...] | | | Comment:Reference | | [facility] | | | | Ranges: 0.00-0.06 = [...] | | | | | | [employer] | | | | | [...] ST. | [address] | [place] | [phone] | | [facility] | | [address] | | | - LABORATORY | | [...] | | | | mmol/L | [facility] | | | [facility] | [facility]ICAL | | | | | | CENTER - | | | | | | LABORATORY | | + + + + + + | K | 3.9 | 3.4 - 5.1 | [facility] | | | | | mmol/L | [facility] | | [facility] | [facility] | | | | | | CENTER - | | | | | | LABORATORY | | + + + + + + | Cl | 107 | 98 - 107 mmol/L | [facility] | | [facility] | | | | | | CENTER - | | | | | | LABORATORY | | + + + + + + | CO2 | 25 | 20 - 31 mmol/L | [facility] | | [facility] | | | | | | CENTER - | | | | | | LABORATORY | | + + + + + + | Anion Gap | 8 | 3 - 16 mmol/L | [facility] | | [facility] | | | | | | CENTER - | | | | | | LABORATORY | | + + + + + + | Glucose | 105 | 60 - 106 mg/dL | [facility] | [facility] | [facility] | [facility] | | | | | | CENTER - | | | | | | LABORATORY | | + + + + + + | BUN | 14 | 9 - 23 mg/dL | [facility] | | | | | | [facility] | | | | | | MEDICAL [...] + + + + | eGFR, | 60Comment: GLOMERULAR | >=60 | [facility] | | | non- | FILTRATION | mL/min/1.73m2 | . [facility] | | | [employer]esian | RATE,ESTIMATED | | MEDICAL | | | | mL/min/1.41v3Ythh than | | CENTER - | | [...] | | | | mg/dL | [facility] | | | | | | MEDICAL | | | | | | CENTER - | | | | | | LABORATORY | | + + + + + + | Albumin | 4.1 | 3.2 - 4.8 g/dL | [facility] | | | | | [facility] | [facility] | [facility] | | | | | | CENTER - | | | | | | LABORATORY | | + + + + + + | Bilirubin | 0.5 | 0.3 - 1.2 mg/dL | [facility] | | | Total | | | [facility] | | | [facility] | | [facility] | | | | | | CENTER - | | | | | | LABORATORY | | + + + + + + | Total | 6.3 | 5.7 - 8.2 g/dL | [facility] | | | Protein | | | [facility] | | | | | | [facility]ICAL | | | | | | CENTER - | | | | | | LABORATORY | | + + + + + + | AST | 23 | 0 - 34 U/L | [facility] | | | | | | [facility] | | [facility] | [facility] | | | | | | CENTER - | | | | | | LABORATORY | | + + + + + + | ALT | 21 | 10 - 49 U/L | [facility] | | | [facility] | | [facility] | [facility]ICAL | | | | | | CENTER - | | | | | | LABORATORY | | + + + + + + | Alkaline | 67 | 46 - 116 U/L | [facility] | | | Phosphatase | | | [facility] | | | | | | MEDICAL | | | | | | CENTER - | | | | | | LABORATORY | | + + + + + + | Globulin | 2.2 | 2.1 - 3.8 g/dL | [facility] | | | | | | [facility] | | | [facility] | | [facility]ICAL | | | | | | CENTER - | | | | | | LABORATORY | | + + + + + + | Albumin/Mattie | 1.9 | 0.8 - 1.9 | [facility] | | | bulin Ratio | | | [facility] | | | [facility] | | MEDICAL | | | | | | CENTER - | | | | | | LABORATORY | | + + + + + + | BUN/Creatin | 15.2 | | [facility] | | | ine Ratio | | | [facility] | | | | | | MEDICAL [...] + | [facility] | [address] | [place] | [phone] | | [facility] | | [address] | | | - LABORATORY | | | | + + + + + CBC with Differential (09/28/2018 2:09 PM PDT) + + + + + + | Component | Value | Ref Range | Performed | Pathologist | | | | | At | Signature | + + + + + + | White Blood | 10.3 | 4.0 - 11.0 K/uL | [facility] | | | Cells | | | [facility] | | [facility] | | [facility]ICAL | | | | | | CENTER - | | | | | | LABORATORY | | + + + + + + | Red Blood | 3.88 | 3.70 - 5.20 | [facility] | | | Cells | | M/uL | [facility] | | | | | [facility] | | | | | | CENTER - | | | | | | LABORATORY | | + + + + + + | Hemoglobin | 11.3 (L) | 11.5 - 16.0 | [facility] | | | | | g/dL | [facility] | | [facility] | | [facility] | | | | | | CENTER - | | | | | | LABORATORY | | + + + + + + | Hematocrit | 36.5 | 34.0 - 47.0 % | [facility] | | | | | | [facility] | | | | | | [facility]ICAL | | | | | | CENTER - | | | | | | LABORATORY | | + + + + + + | MCV | 94.1 | 83.0 - 101.0 fL | [facility] | | | | | | [facility] | [facility] | [facility]ICAL | | | | | | CENTER - | | | | | | LABORATORY | | + + + + + + | MCH | 29.1 | 28.0 - 35.0 pg | [facility] | | | | | | [facility] | [facility] | [facility] | | | | | | CENTER - | | | | | | LABORATORY | | + + + + + + | MCHC | 31.0 (L) | 32.0 - 36.0 | [facility] | | | | | g/dL | [facility] | | | [facility] | | MEDICAL | | | | | | CENTER - | | | | | | LABORATORY | | + + + + + + | RDW-CV | 19.2 (H) | <15.0 % | [facility] | | | | | [facility] | [facility]ICAL | | | | | | CENTER - | | | | | | LABORATORY | | + + + + + + | RDW-SD | 65.4 (H) | 35.1 - 46.3 fL | [facility] | | | | | [facility] | | [facility] | [facility]ICAL | | | | | | CENTER - | | | | | | LABORATORY | | + + + + + + | Platelet | 305 | 140 - 440 K/uL | [facility] | | | Count | | | [facility] | [facility] | [facility]ICAL | | | | | | CENTER - | | | | | | LABORATORY | | + + + + + + | MPV | 9.0 | 6.5 - 12.4 fL | [facility] | | | | | | [facility] | [facility]ICAL | | | | | | CENTER - | | | | | | LABORATORY | | + + + + + + | % | 86.8 (H) | 45.0 - 82.0 % | [facility] | | | Neutrophils | | | [facility] | | | | | | MEDICAL | | | | | | CENTER - | | | | | | LABORATORY | | + + + + + + | % | 6.6 (L) | 20.0 - 45.0 % | [facility] | | | Lymphocytes | | | [facility] | | | | | | MEDICAL | | | | | | CENTER - | | | | | | LABORATORY | | + + + + + + | % Monocytes | 5.4 | 4.0 - 12.0 % | [facility] | | | | | | [facility] | | | [facility] | [facility]ICAL | | | | | | CENTER - | | | | | | LABORATORY | | + + + + + + | % | 0.1 | 0.0 - 5.0 % | [facility] | | | Eosinophils | | | [facility] | | | | | | MEDICAL [...] | Lymphocytes | | K/uL | [facility] | | | | | | MEDICAL | | | | | | CENTER - | | | | | | LABORATORY | | + + + + + + | Absolute | 0.55 | 0.00 - 1.00 | [facility] | | | Monocytes | | K/uL | [facility] | | | | | | MEDICAL | | | | | | CENTER - | | | | | | LABORATORY | | + + + + + + | Absolute | 0.01 | 0.00 - 0.40 | [facility] | | | Eosinophils | | K/uL | [facility] | | | | | | MEDICAL [...] | | Immature | | K/uL | [facility] | | | Granulocyte | | | MEDICAL | | | s | | | CENTER - | | | | | | LABORATORY | | + + + + + + | % nRBC | 0 | 0 - 2 per 100 | [facility] | | | | | WBCs | [facility] | | | | | | MEDICAL | | | | | | CENTER - | | | | | | LABORATORY | | + + + + + + | Absolute | 0.02 (H)Comment: | 0.00 - 0.01 | [facility] | | | nRBC | Presence of any NRBC's | K/uL | [facility] | | | | in adults is [...] ST. | [address] | [place] | [phone] | | [facility] | | [address] | | | - LABORATORY | | [...] | | | | DIANA SMART MD ([id number]) | | | | | | on [...] | | mg 30 mg, Oral, ONCE, Tue | | 19 3:24 | | | | | 09/28/18 at 1515, For 1 dose | | PM PDT | | | | + +-------+ +-------+---+---+ +---+---+ | | | +---+---+ documented in this encounter
--- OUTSIDE RECORDS SUMMARY | ~2019-12-28 | XMS | Encounter Summary ---
Demographics + + + | Address | [address] | | | [place] [address] | + + + | Home Phone [...] [address] [place] | | | | | [address] | | + + + + + Care Team Providers + +------+ + | Care Wall Steamer Name | Role | Phone | + +------+ + | Davis Ivan MD | PCP | | + +------+ + Reason for Visit +---------+--------+ + | Reason | Onset | Comments | | | Date | | +---------+--------+ + | Results | 05/10/ | | | | 2013 | | +---------+--------+ [...] | | | | | | [place] [address] | | | | | | [phone] | | | +--------+ + + + [...] Telephone Encounter - Blessing Lopez RN - 05/10/2014 5:00 PM Ce notified that Dr Taylor reviewed 05/03/14 overnight oximetry on room air and said no oxygen is needed. Fernando mares said she's glad to hear that and thanks us for the call. documented in this encounter Plan of Treatment +--------+---------+ + + + | Date | Type | Specialty | Care Team | Description | +--------+---------+ + + + | 03/06/ | Office | Rheumatology | Santosh Sumner, | | | 2019 | Visit | | [facility] [address] | | | | | | [facility] | | | | | | [place] [address] | | | | | | [phone] | | | | | | | | +--------+---------+ + + + documented as of this encounter Visit Diagnoses Not on filedocumented in this encounter"
--- OUTSIDE RECORDS SUMMARY | ~2019-12-28 | XMS | Encounter Summary ---
Demographics + + + | Address | [address] | | | [place] [address] | + + + | Home Phone [...] [place] | | | | | [address] | | + + + + + Care Team Providers + +------+ + | Care Radiology Physician Assistant Name | Role | Phone | [...] | | | hand, | | [place] [address] | | | | | unspecified | | Phone: | | | | | osteoarthrit | | [phone] | | | | | is type | | Fax: | | | | | Osteoarthrit | | [phone] | | | | | is of [...] + + | 03/20/ | Hospital | [facility] | Giuliano Padilla, | | | 2014 | Encounter | MED CTR XRAY [address] | [address] [facility] | | | | | [place] | [place] | | | | | [place] [address] | [address] | | | | | [phone] | | | +--------+ + + + [...] | 2019 | Visit | | [facility] [address] | | | | | | [facility] | | | | | | [place] [address] | | | | | | [phone] | | | | | | | [...]
--- OUTSIDE RECORDS SUMMARY | ~2019-12-28 | XMS | Encounter Summary ---
Demographics + + + | Address | [address] | | | [place] [address] | + + + | Home Phone [...] [place] | | | | | [address] | | + + + + + Care Team Providers + +------+ + | Care Education Rep Name | Role | Phone | + +------+ + | Davis Ivan MD | PCP | | + +------+ + Reason for Visit + +--------+ + | Reason | Onset | Comments | | | Date | | + +--------+ + | Surgery Appointment | 11/01/ | Reschedule Surgery/Clearance | | | 2019 | | + +--------+ + Encounter Details +--------+ + + + + | Date | Type | Department | Care Team | Description | +--------+ + + + + | 11/01/ | Telephone | [facility] | Giuliano Padilla, | Surgery Appointment | | 2018 | | ORTHOPEDIC SURGERY | [address] | (Reschedule | | | | [address] | [place] | Surgery/Clearance) | | | | [place] | [address] | | | | | [address] | | | | | | [phone] | | | +--------+ + + + [...] encounter Miscellaneous Notes Telephone Encounter - Monica Aguilar, Ruddy NOGUERA - 11/01/2018 1:20 PM NEHAAshley was in to see today. She would like to get things rescheduled with . She state s she had an echo done and is following up with her PCP on 11/11/2018. Ashley was told that whe n she see her PCP that day she needs to ask for surgical clearance so we can move forward. S he was given a card with our fax number on it so they can fax a clearance to our office. Once we receive this we will get her rescheduled for surgery. documented in this encounter Plan of Treatment +--------+---------+ + + + | Date | Type | Specialty | Care Team | Description | +--------+---------+ + + + | 03/06/ | Office | Rheumatology | Santosh Sumner, | | | 2019 | Visit | | [facility] [address] | | | | | | [facility] | | | | | | [place] [address] | | | | | | [phone] | | | | | | | | +--------+---------+ + + + documented as of this encounter Visit Diagnoses Not on filedocumented in this encounter"
--- OUTSIDE RECORDS SUMMARY | ~2019-12-28 | XMS | Encounter Summary ---
Demographics + + + | Address | [address] | | | [place] [address] | + + + | Home Phone [...] [place] | | | | | [address] | | + + + + + Care Team Providers + +------+ + | Care Mission Support Specialist Name | Role | Phone | [...] | | | [address] | [place] [address] | | | | | [place] [address] | | | | | | [phone] | | | +--------+ + + + [...] | 2019 | Visit | | [facility] [address] | | | | | | [place] | | | | | | [place] [address] | | | | | | [phone] | | | | | | | [...]
--- OUTSIDE RECORDS SUMMARY | ~2019-12-28 | XMS | Encounter Summary ---
Demographics + + + | Address | [address] | | | [place] [address] | + + + | Home Phone [...] [place] | | | | | [address] | | + + + + + Care Team Providers + +------+ + | Care Silver Solderer Name | Role | Phone | + [...] | | | [place] | | [place] [address] | | | | | finger, left | | Phone: | | | | | index | | [phone] | | | | | finger | | Fax: | | | | | Trigger | | [phone] | | | | | finger, left | | | | | | | middle | | | | | | | finger | | | | | | | Procedures | | | | | | | ID INCISE | | | | | | | FINGER | | | | | | | TENDON | | | | | | | SHEATH ID | | | | | | | INCISE | | | | | | | FINGER | | | | | | | TENDON | | | | | | | SHEATH ID | | | | | | | [...] + + + + | 12/14/ | Hospital | [facility] | Giuliano Padilla, | Trigger finger, left | | 2019 | Encounter | MED CTR OR INTRA OP | MD [address] | index finger; | | | | [address] | [place], [place] | Trigger finger, left | | | | [place], [place] | [address] | middle finger; | | | | [address] | | Trigger finger of | | | | [phone] | | left thumb; Trigger | | | | | | finger, left ring | | | | | | finger | +--------+ + + + + Social [...] | | | | | | type ([facility]) | | | | | [...] documented as of this encounter H&P Notes Giulaino Padilla MD - 12/14/2018 10:07 AM PDTNo [...] nodule Rheumatoid arthritis(714.0) on prednisone and methotrexate, Tiffanie Chowdhury Spinal stenosis has tried cortisone injections Spondylolisthesis of cervical region 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 [facility] Past Surgical History: Procedure Laterality Date BACK SURGERY 03/2014 BLADDER SUSPENSION BRONCHOSCOPY 07/11/2014 EBUS with right hilar LN biopsy, [facility] CERVICAL SPINE SURGERY 2012 CHOLECYSTECTOMY COLONOSCOPY 06/2014 ENDOSCOPY HAND ARTHROPLASTY Left 03/20/2015 Procedure: Left 1st C.M.C. Arthroplasty; Surgeon: Giuliano Padilla MD; Location: [facility] MAIN OR HAND ARTHROPLASTY Right 10/27/2017 Procedure: Right 1st CMC Arthroplasty; Surgeon: Giuliano Padilla MD; Location: [facility] MAIN O R HYSTERECTOMY LOBECTOMY 09/16/13 right lower lobe LUNG BIOPSY 07/21/13 right lower lobe SHOULDER SURGERY SHOULDER SURGERY right shoulder THUMB SURGERY TONGUE SURGERY benign per pt TUNNELED VENOUS PORT PLACEMENT N/A 07/28/2014 Procedure: Port Placement; Surgeon: Chalino Chiu MD; Location: [facility] MAIN OR Allergies: No Known Allergies [...] non-medical: Not on file Occupational History 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 [facility] Giuliano Padilla MD docume nted in this encounter Plan of Treatment +--------+---------+ + + + | Date | Type | Specialty | Care Team | Description | +--------+---------+ + + + | 03/06/ | Office | Rheumatology | Santosh Sumner, | | | 2019 | Visit | | [facility] [address] | | | | | | [facility] | | | | | | [place] [address] | | | | | | [phone] | | | | | | | [...] + | Extra | Done | | [facility] | | | [facility] | | | [facility] | | [...] [address] | [place] | [phone] | | [facility] | | [address] | | | - LABORATORY | | [...] [address] | [place] | [phone] | | [facility] | | [address] | | | - LABORATORY | | | | + + + + + documented in this encounter Visit Diagnoses + + | Diagnosis | + + | Trigger finger, left index finger | + + | Trigger finger, left middle finger | + + | Trigger finger of left thumb | + + | Trigger finger, left ring finger | + + | CVA (cerebral vascular accident) (HCC) Unspecified cerebral artery occlusion with | | cerebral infarction | + + documented in this encounter [...] | | | | | Wheezing, Starting e 12/14/18 at | | | | | | [...] glucose < 50, | | | Starting e 12/14/18 at 1039, | | | Repeat in [...] +---------+ +--------+-------+--------+ +---+---+ | | | +---+---+ documented in this encounter
--- OUTSIDE RECORDS SUMMARY | ~2019-12-28 | XMS | Encounter Summary ---
Demographics + + + | Address | [address] | | | [place] [address] | + + + | Home Phone [...] [place] | | | | | [address] | | + + + + + Care Team Providers + +------+ + | Care Show Host/Hostess Name | Role | Phone | + [...] | | | hand, | | [place] [address] | | | | | unspecified | | Phone: | | | | | osteoarthrit | | [phone] | | | | | is type | | Fax: | | | | | Osteoarthrit | | [phone] | | | | | is of [...] | | | | | | | ND REPAIR | | | | | | | INTERCARP/CA | | | | | | | RP-METACARP | | | | | | | JT | | | +--------+--------+ + + + + Encounter Details +--------+ + + + + | Date | Type | Department | Care Team | Description | +--------+ + + + + | 03/20/ | Hospital | [facility] | Giuliano Padilla, | | | 2014 | Encounter | MED CTR OR INTRA OP | [address] [facility] | | | | | [address] | [place] | | | | | [place] | [address] | | | | | [address] | | | | | | [phone] | | | +--------+ + + + [...] mg by | | 0 | | 06/08/201 | | (MUCINEX) 600 mg 12 | [...] MD - 03/20/2015 11:53 AM PDTNo change Giuliano Sky MD - 03/18/2015 7:51 PM PDT History of present illness: Thea is a 69 y.o. female who presents with a chief complaint l eft thumb pain Patient had a left carpometacarpal prosthesis with trapezial excision by Dr. 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 Lewis [place] Hyperlipidemia on simvastatin Hypertension on clonidine and lisinopril Hypothyroidism GERD (gastroesophageal reflux disease) Stroke ([facility]) 2006 Stroke ([facility]) 2007 Squamous cell carcinoma of lung ([facility]) 07/2013 right lower lobe Sputum culture positive for Scopulariopsis species Recurrent squamous cell carcinoma of lung ([facility]) 07/11/[address] and RUL nodule MARCE (obstructive sleep apnea) AHI 11.6 no CPAP Full dentures upper & lower Upper GI bleed 06/[address] [facility] Past Surgical History Procedure Laterality Date Hysterectomy Cholecystectomy Cervical spine surgery 2012 Bladder suspension Shoulder surgery Thumb surgery Shoulder surgery right shoulder Tongue surgery benign per pt Lung biopsy 07/21/13 right lower lobe Lobectomy 09/16/13 right lower lobe Back surgery 03/2014 Bronchoscopy 07/11/2014 EBUS with right hilar LN biopsy, [facility] Dr. Sierra Tunneled venous port placement N/A 07/28/2014 Procedure: Port Placement; Surgeon: Chalino Chiu MD; Location: [facility] MAIN OR Colonoscopy 06/2014 Endoscopy [...] daily. 60 tablet 3 Respiratory Therapy Supplies [facility] ResMed S9 auto CPAP 5-9 cm H2O. 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 It may have not been p roofread in entirety. Minor errors in grammar may occur. documented in this en counter Miscellaneous Notes Op Note - Giuliano Padilla MD - 03/20/2015 1:35 PM PDT [address] [id number] OPERATIVE REPORT GIULIANO PADILLA MD Patient: THAE CARMONA Admitting: GIULIANO Anselmo RANDY MR #: [id number] LOC: PT TYPE: Adm Date: 03/20/2015 : [...] 03/20/2015 13:35:56 Transcribed on 03/20/2015 20:30:53 by [facility] job# [id number] Confirmation #: [id number] cc: LOBO GILBERT MD 8:2 2 AM PDTBrief Op Note - Giuliano Padilla MD - 03/20/2015 1:29 PM PDT Brief Operative Note Thea Carmona 69 y.o. female 1945 [id number] Proc. Date 03/20/2015 Preop Dx Osteoarthritis of left hand, unspecified osteoarthritis type [M19.042] Postop Dx same Procedure Left 1st C.M.C. Arthroplasty Anesthesia General Surgeon Giuliano Padilla MD - Primary Facilities Specialist EBL less than 50 mL Findings Subluxated hemiarthroplasty implant, basal joint removed and joint stabilized wit h arthrex minitightrope Complications none Specimens * No specimens in log * Drains Electronically signed by: Giuliano Padilla MD 03/20/2015 13:29 [facility] signed by Giuliano Padilla MD at 03/02 1:29 PM PDTdocumented in this encounter Plan of Treatment +--------+---------+ + + + | Date | Type | Specialty | Care Team | Description | +--------+---------+ + + + | 03/06/ | Office | Rheumatology | Santosh Sumner, | | | 2019 | Visit | | [address] | | | | | | [facility] | | | | | | [place] [address] | | | | | | [phone] | | | | | | | [...] | | + +---------+ + + [place] No Charge (03/20/2015 1:22 PM PDT) [...]
--- OUTSIDE RECORDS SUMMARY | ~2019-12-28 | XMS | Encounter Summary ---
Demographics + + + | Address | [address] | | | [place] [address] | + + + | Home Phone [...] [address] | | | | | [address] | | + + + + + Care Team Providers + +------+ + | Care Cashier Ticket Selling Name | Role | Phone | + +------+ + | Davis Ivan MD | PCP | | + +------+ + Reason for Visit + +--------+ + | Reason | Onset | Comments | | | Date | | + +--------+ + | Medication Refill | 03/09/ | | | | 2014 | | + +--------+ + Encounter Details +--------+--------+ + + + | Date | Type | Department | Care Team | Description | +--------+--------+ + + + | 03/09/ | Refill | [facility] | Anahy Forbes RN | Medication Refill | | 2014 | | MED CTR MEDICAL | | | | | | ONCOLOGY CLINIC [address] | | | | | | [address] | | | | | | [place] [address] | | | | | | [phone] | | | +--------+--------+ + + + [...] | 2020 | Visit | | [address] | | | | | | [place] | | | | | | [place] [address] | | | | | | [phone] | | | | | | | | +--------+---------+ + + + documented as of this encounter Visit Diagnoses + + | Diagnosis | + + | Gastroesophageal reflux disease without esophagitis - Primary Esophageal reflux | + + documented in this encounter"
--- OUTSIDE RECORDS SUMMARY | ~2019-12-28 | XMS | Encounter Summary ---
Demographics + + + | Address | [address] | | | [place] [address] | + + + | Home Phone [...] [address] | | | | | [address] | | + + + + + Care Team Providers + +------+ + | Care Concrete Conveyor Operator Name | Role | Phone | + +------+ + | Caitlin Chino MD | PCP | | + +------+ + Reason for Visit + +--------+ + | Reason | Onset | Comments | | | Date | | + +--------+ + | Results, Imaging | 04/25/ | | | | 2018 | | + +--------+ + Encounter Details +--------+ + + + + | Date | Type | Department | Care Team | Description | +--------+ + + + + | 04/25/ | Telephone | [facility] | Rocky Santos, | Results, Imaging | | 2018 | | PHYSIATRY [address] | MD [address] | | | | | [address] | [place] | | | | | [place] | [address] | | | | | [address] | | | | | | [phone] | | | +--------+ + + + [...] this encounter Miscellaneous Notes Telephone Encounter - Humaira Dhaliwal RN - 05/02/2019 10:13 AM PSTPatient call returned. Patient given results. States understanding, no question at this time. elephone Encounter - Matilde Huddleston - 05/02/2019 9:16 AM PSTPatient calling back for imaging results please advise.Electronicall y signed by Matilde Huddleston at 05/02/2019 9:16 AM PSTTelephone Encounter - Indy Littlejohn Architect - 04/25/2019 1:44 PM PSTCalled to inform Thea Carmona of imaging results. Left a voicemail message to call our office back. elephone Encounter - Indy Cadena Medical Assistant - 04/25/2019 1:30 PM PST----- Message from Rocky Santos MD sent at 04/25/2019 8:44 AM PST ----- Humaira, Please let Thea Carmona know that I have reviewed her neck x-rays. Her neck pain will be discussed at future visit. There are no emergent findings on the x-rays. The x-ray s demonstrate intact fusion. She has arthritis below her fusion and in the fact (small join ts) of the neck. Thank you, Rocky Santos MD (.) ----- Message ----- From: Fabián, Rad Results In Sent: 04/22/2019 3:34 PM PST To: Rocky Santos MD do cumented in this encounter Plan of Treatment +--------+---------+ + + + | Date | Type | Specialty | Care Team | Description | +--------+---------+ + + + | 03/06/ | Office | Rheumatology | Santosh Sumner, | | | 2019 | Visit | | [address] | | | | | | [facility] | | | | | | [place] [address] | | | | | | [phone] | | | | | | | | +--------+---------+ + + + documented as of this encounter Visit Diagnoses Not on filedocumented in this encounter"
--- OUTSIDE RECORDS SUMMARY | ~2019-12-28 | XMS | Encounter Summary ---
Demographics + + + | Address | [address] | | | [place] [address] | + + + | Home Phone [...] [place] | | | | | [address] | | + + + + + Care Team Providers + +------+ + | Care Lmft Name | Role | Phone | + +------+ + | Davis Ivan MD | PCP | | + +------+ + Encounter Details +--------+ + + + + | Date | Type | Department | Care Team | Description | +--------+ + + + + | 08/22/ | Hospital | [facility] | Adelita Lu MD | Lung cancer (HCC) | | 2014 | Encounter | MED CTR PULMONARY | Need updated | | | | | FUNCTION [address] | address | | | | | [place], | | | | | | [place] [address] | | | | | | [phone] | | | +--------+ + + + [...] + + documented as of this encounter Procedure Notes Ayana Taylor MD - 09/01/2013 6:06 AM PDTAssociated Order(s): PFT PULMONARY FUNCT ION TESTING ORDERSProcedure(s): PFT PULMONARY FUNCTION TESTING ORDERSPre-Procedure Diagnose( s): Lung cancer (HCC) PULMONARY FUNCTION TESTING SPIROMETRY: Prior to administration of inhaled bronchodilator, FVC was normal at 2.64 L or 97% of predicted. FEV1 was mildly reduced at 1.31 L or 62% of predicted. FEV1/FVC ratio was reduced at 49%. After administration of inhaled bronchodilator, FVC increased by 8 % to 2.86 L or 105% of predicted. FEV1 increased by 24 % to 1.62 L or 77% of predicted. FEV1/FVC rati o was reduced at 57%. LUNG VOLUMES: Total lung capacity was normal at 5.22 L or 108% of predicted. Residual volum e was elevated at 2.56 L or 122% of predicted. RV/TLC ratio was normal at 49% or 114 % of pr edicted. DIFFUSION CAPACITY: Diffusion capacity was mildly reduced at 14.4 mL/mmHg per minute or 65% of predicted and was not corrected for a measured hemoglobin. IMPRESSION: Spirometry is consistent with mild obstructive physiology. There was a signific ant response to inhaled bronchodilator based on change in FEV1. Lung volume testing is consi stent with obstructive physiology. Diffusion capacity is mildly reduced and is not corrected for measured hemoglobin. Electronically signed by: Ayana Taylor MD 09/01/2013 6:07 [facility] CC: Davis Ivan NBASE SCAN [facility] T - 08/22/2013 12:00 AM PDTAssociated Order(s): DIAGNOSTIC REPORT - EXTERNAL SCANElectronica lly signed by Capri Hodges at 09/09/2013 10:32 AM PDTdocumented in this encounter Plan of Treatment +--------+---------+ + + + | Date | Type | Specialty | Care Team | Description | +--------+---------+ + + + | 03/06/ | Office | Rheumatology | Santosh Sumner, | | | 2019 | Visit | | [address] | | | | | | [facility] | | | | | | [place] [address] | | | | | | [phone] | | | | | | | [...] + + + | PFT PULMONARY | ZEYENP | 09/01/2013 | Lung cancer (HCC) | [...] signed by: Ayana Taylor MD 09/01/2013 6:07 WS | | | [facility] CC: Davis Ivan | | | | [...] for measured | | hemoglobin.Electronically signed by: Aayna Taylor MD 09/01/2013 6:07[facility] | | [facility]: Davis Ivan | |[facility] | | | |CC: Davis Ivan [...]
--- OUTSIDE RECORDS SUMMARY | ~2019-12-28 | XMS | Encounter Summary ---
Demographics + + + | Address | [address] | | | [place] [address] | + + + | Home Phone [...] [place] | | | | | [address] | | + + + + + Care Team Providers + +------+ + | Care Keno Writer / Runner Name | Role | Phone | + +------+ + | Davis Ivan MD | PCP | | + +------+ + Encounter Details +--------+ + + + + | Date | Type | Department | Care Team | Description | +--------+ + + + + | 07/25/ | Hospital | [facility] | Jimmy Banegas DO | Malignant neoplasm | | 2015 | Encounter | MED CTR MEDICAL | [address] | of right lung, | | | | ONCOLOGY CLINIC [address] | [place], [place] | unspecified part of | | | | [place] | [address] | lung (HCC) (Primary | | | | [place] [address] | | Dx) | | | | [phone] | | | +--------+ + + + [...] | 2019 | Visit | | [address] | | | | | | [facility] | | | | | | [place] [address] | | | | | | [phone] | | | | | | | | +--------+---------+ + + + documented as of this encounter Visit Diagnoses + + | Diagnosis | + + | Malignant neoplasm of right lung, unspecified part of lung (HCC) - Primary | + + documented in this encounter"
--- OUTSIDE RECORDS SUMMARY | ~2019-12-28 | XMS | Encounter Summary ---
Demographics + + + | Address | [address] | | | [place] [address] | + + + | Home Phone [...] [place] | | | | | [address] | | + + + + + Care Team Providers + +------+ + | Care Blood Bank Worker Name | Role | Phone | + +------+ + | Davis Ivan MD | PCP | | + +------+ + Encounter Details +--------+ + + + + | Date | Type | Department | Care Team | Description | +--------+ + + + + | 02/07/ | Hospital | [facility] | Alfredenstein, | COPD (chronic | | 2013 | Encounter | MED CTR PULMONARY | Ayana Looney MD | obstructive | | | | FUNCTION [address] | | pulmonary disease) | | | | [place], | | | | | | [place] [address] | | | | | | [phone] | | | +--------+ + + + [...] encounter Procedure Notes Ayana Taylor MD - 02/09/2014 9:00 AM PDTAssociated Order(s): PFT PULMONARY FUNCT ION TESTING ORDERSProcedure(s): PFT PULMONARY FUNCTION TESTING ORDERSPre-Procedure Diagnose( s): COPD (chronic obstructive pulmonary disease) (HCC) PULMONARY FUNCTION TESTING METHOD: Spirometry was obtained pre and post administration of inhaled bronchodilator. Lung volumes were obtained by body plethysmography. Diffusion capacity was obtained by single br eath method and was corrected for a measured hemoglobin. ATS standards were met. SPIROMETRY: Prior to administration of inhaled bronchodilator, FVC was normal at 2.57 L or 94% of predicted. FEV1 was mildly reduced at 1.64 L or 78% of predicted. FEV1/FVC ratio was reduced at 64%. After administration of inhaled bronchodilator, FVC increased by 10 % to 2.8 3 L or 104% of predicted. FEV1 increased by 10 % to 1.81 L or 86% of predicted. FEV1/FVC rat io was reduced at 64%. LUNG VOLUMES: Total lung capacity was normal at 4.90 L or 101% of predicted. Residual volum e was normal at 2.30 L or 110% of predicted. RV/TLC ratio was normal at 47% or 109 % of pred icted. DIFFUSION CAPACITY: Diffusion capacity was moderately reduced at 12.5 mL/mmHg per minute or 56% of predicted and was corrected for a measured hemoglobin of 12.1 g/dL. IMPRESSION: Spirometry is consistent with mild obstructive physiology. There was not a sign ificant response to inhaled bronchodilator. Lung volume testing is normal. Diffusion capacit y is moderately reduced and is corrected for measured hemoglobin. Compared to testing done i july, FVC has decreased by 3%, FEV1 has increased by 26%, TLC has decreased by 6% , RV has decreased by 10%, and diffusion capacity has decreased by 17%. Testing in July was done prior to lobectomy. Electronically signed by: Ayana Taylor MD 02/09/2014 9:00 [facility] CC: Davis Ivan NInteraXon SCAN [facility] T - 02/07/2014 12:00 AM PDTAssociated Order(s): DIAGNOSTIC REPORT - EXTERNAL SCANElectronica lly signed by buySAFE [facility] at 02/13/2014 11:04 AM PDTdocumented in this encounter Plan of Treatment +--------+---------+ + + + | Date | Type | Specialty | Care Team | Description | +--------+---------+ + + + | 03/06/ | Office | Rheumatology | Santosh Sumner, | | | 2019 | Visit | | [address] | | | | | | [facility] | | | | | | [place] [address] | | | | | | [phone] | | | | | | | [...] | | Ayana Taylor MD 02/09/2014 9:00 [facility] | | | [facility] CC: Davis Ivan | | + + [...] by: Ayana Taylor MD 02/09/2014 | | [facility]00[facility] Davis Ivan | |[facility] | | | |CC: [...] | | | | Nebulization, RT Once, [place] 02/07/14 | | AM PDT | | | | | at 1200, For 1 dose, RT will | | | | | | | administer., | | | | | | + +--------+ +--------+------+------+ +---+---+ | | | +---+---+ documented in this encounter"
--- OUTSIDE RECORDS SUMMARY | ~2019-12-28 | XMS | Encounter Summary ---
Demographics + + + | Address | [address] | | | [place] [address] | + + + | Home Phone [...] [place] | | | | | [address] | | + + + + + Care Team Providers + +------+ + | Care Manager Image Name | Role | Phone | + [...] + + | 10/22/ | Office | [facility] [place] | Giuliano Padilla, | Hyperlipidemia, | | 2018 | Visit | ORTHOPEDIC SURGERY | MD [address] | unspecified | | | | [address] | [place] | hyperlipidemia type | | | | [place] | [address] | (Primary Dx); | | | | [address] | | Hypertension, | | | | [phone] | | unspecified type; Hx | | [...] | 2019 | Visit | | [address] | | | | | | [facility] | | | | | | [place] [address] | | | | | | [phone] | | | | | | | [...] | [address] | [place] | [phone] | | [facility] | | [address] | | | - LABORATORY | | [...] + + + + | eGFR, | 49 (L)Comment: | >=60 | [facility] | | | non- | GLOMERULAR FILTRATION | mL/min/1.73m2 | SOO | | | [place] | RATE,ESTIMATED | | MEDICAL | | | | mL/min/1.61y0Kzcv than | | CENTER - | | [...] [address] | [place] | [phone] | | [facility] | | [address] | | | - LABORATORY | | [...] + | [address] | [address] | [place] | [phone] | | [facility] | | [address] | | | - LABORATORY | | [...] | | | | DIANA SMART MD ([id number]) | | | | | | on [...]
--- OUTSIDE RECORDS SUMMARY | ~2019-12-28 | XMS | Encounter Summary ---
Demographics + + + | Address | [address] | | | [place] [address] | + + + | Home Phone [...] [place] | | | | | [address] | | + + + + + Care Team Providers + +------+ + | Care Counter Pocket Trimmer Name | Role | Phone | [...] | | Pulmonary | [place], | [address] | | | | | nodule | Ayana B, | [place], | | | | | Procedures | MD [address] | [place] [address] | | | | | CT Chest wo | [address] | Phone: | | | | | Contrast | [place], | [phone] | | | | | | [place] [address] | Fax: | | | | | | | [phone] | +--------+--------+ + + + + Reason [...] | (Primary Dx); | | | | [address] [place], | | Snoring; Depression | | | | [place] [address] | | | | | | [phone] | | | +--------+---------+ + + + [...] Inbox a couple of days ag o. Ayana Cabezas MD - 05/11/2013 1:21 PM PST . Pulmonary Follow Up MD Lien Garciaa [facility] [address] [place], [address] HPI Thea Carmona is a 67 y.o. [...] arthritis on prednisone and methotrexate, Dr. 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 lisinopril (PRINIVIL, ZESTRIL) 10 mg tablet [...] made to ensure accuracy; however, inadvertent computerized head trimmer errors may be pre sent. documented in t his encounter Plan of Treatment +--------+---------+ + + + | Date | Type | Specialty | Care Team | Description | +--------+---------+ + + + | 03/06/ | Office | Rheumatology | Santosh Sumner, | | | 2019 | Visit | | [address] | | | | | | [facility] | | | | | | [place] [address] | | | | | | [phone] | | | | | | | | +--------+---------+ + + + documented as of this encounter Results CT Chest wo Contrast (06/09/2013 3:45 PM PST) + + | Specimen | + + | | + + + + + | Narrative | Performed At | + + + | [facility] Diagnostic Imaging | [facility] | | Department [address] [facility] | [facility] | | [ rep ct [address]] [ rep [facility] | | st zip] Signed | - IMAGING | | | | | Patient Name: THEA CARMONA Physician: | | | KATIE. : 1945 Age: 68 Sex: F Unit #: [id number] | | | Exam Date: 06/09/13 Location: [facility] [place] | | | Report #: [id number] Page: | | | %(RAD)RES..mtdd.print.filter("pg") of %(RAD) | | | RES..mtdd.print.filter("tpg") | | | | | | Accession Number: [id number] | | | CT CHEST WITHOUT CONTRAST, 06/09/2013 CLINICAL HISTORY: | | | FOLLOWUP NODULE IN THE SUPERIOR SEGMENT OF THE RIGHT LOWER LOBE. | | | TECHNIQUE: Axial images were obtained from thoracic inlet to | | | upper abdomen without the use of contrast. | | | COMPARISON: 01/28/2013 scan from [place]. FINDINGS: A | | | partially cavitary [...] Transcribed Date/Time: 06/09/2013 16:14 | | | Department Clerk: <<Signature on File>> | | | | | | Jose Elias Leal MD06/09/13 1702 <Electronically signed by | | | Jose Elias Leal MD> Jose Elias Leal MD 06/09/13 | | | 1545 Department Clerk: Farseer Isvrbzjrwecin66/09/14 1614 | | | Ayana Taylor MD | | + + + + + + + + | Performing | Address | City/State/Zipcode | Phone Number | | Organization | | | | + + + + + | [facility] | [address] | [place] | [phone] | | [facility] | | [address] | | | - IMAGING | | [...]
--- OUTSIDE RECORDS SUMMARY | ~2019-12-28 | XMS | Encounter Summary ---
Demographics + + + | Address | [address] | | | [place] [address] | + + + | Home Phone [...] [place] | | | | | [address] | | + + + + + Care Team Providers + +------+ + | Care Trauma Director Name | Role | Phone | [...] + + | 04/10/ | Refill | [facility] | Santosh Sumner, | Medication Refill | | 2019 | | RHEUMATOLOGY [address] | PA-C [address] | | | | | [facility] | [facility] | | | | | [place], [place] | [place] [address] | | | | | [address] | [phone] | | | | | [phone] | | | +--------+--------+ + + + [...] this encounter Miscellaneous Notes Telephone Encounter - Risa Ansari, Pvc Loader - 04/11/2019 10:14 AM PSTFormat ting of this note might be different from the original. Medication requested: methotrexate By: mykel de la rosa Last filled:03/08/2019 qty 32 refills 0 Last Labs: Last visit:02/22/2019 w/ts Next visit: 05/26/2019 w/ts Eye exam:n/a No result notes or see result note: Last chart note stated: Visit Diagnoses and Associated Orders: Problem List Items Addressed This Visit Musculoskeletal Rheumatoid arthritis - Primary The patient returns to the clinic for a follow up appointment. She is on 15mg Methotr exate weekly with 1mg Folic Acid daily and doing well. She is requesting a referral for acup uncture which I sent in. She states the last couple weeks she has noticed a few more aches b ut states it changes when the weather got colder. She states otherwise her joint pain and s tiffness are significant better. We will make no changes and see her back in 3 months and up date blood work. Discussed risks and benefits of [...] counseled regarding medication compliance and routine laboratory terence toring due to the potential toxicities with rheumatological medications such as but not limi april to; hematologic toxicity, hepatotoxicity, renal dysfunction and increased risks for infe ctions. Basic Labs Monitored (CBC, CMP, ESR and [...] c drug change. Chest XR: Satisfactory - 2018 This will be checked within 1 year of initiation of rheumatological therapy. There is evidence of COPD Please advise [facility] umented in this encounter Plan of Treatment +--------+---------+ + + + | Date | Type | Specialty | Care Team | Description | +--------+---------+ + + + | 03/06/ | Office | Rheumatology | Santosh Sumner, | | | 2019 | Visit | | [address] | | | | | | [facility] | | | | | | [place] [address] | | | | | | [phone] | | | | | | | | +--------+---------+ + + + documented as of this encounter Visit Diagnoses Not on filedocumented in this encounter"
--- OUTSIDE RECORDS SUMMARY | ~2019-12-28 | XMS | Encounter Summary ---
Demographics + + + | Address | [address] | | | [place] [address] | + + + | Home Phone [...] Team Providers + +------+ + | Care Contracting Officer Name | Role | Phone | + +------+ + | Davis Ivan MD | PCP | | + +------+ + Encounter Details +--------+ + + + + | Date | Type | Department | Care Team | Description | +--------+ + + + + | 11/06/ | Hospital | [facility] | Gurmeet Vargas, | Bronchogenic cancer | | 2017 | Encounter | MED CTR XRAY [address] | [address] | of right lung (HCC) | | | | [place] | [place] [address] | | | | | [place] [address] | [phone] | | | | | [phone] | | | +--------+ + + + [...] | | 2019 | Visit | | [address] | | | | | | [facility] | | | | | | [place] [address] | | | | | | [phone] | | | | | | | [...] the | | | | PDT | ([facility]) | results section. | + [...] chest radiographs. CT chest 11/30/2015. | [facility] | | FINDINGS: Frontal and [...] [address] | [place] | [phone] | | [facility] | | [address] | | | - IMAGING | | | | + + + + + documented in this encounter Visit Diagnoses + + | Diagnosis | + + | Bronchogenic cancer of right lung (HCC) | + + documented in this encounter"
--- OUTSIDE RECORDS SUMMARY | ~2019-12-28 | XMS | Encounter Summary ---
Demographics + + + | Address | [address] | | | [place] [address] | + + + | Home Phone [...] [place] | | | | | [address] | | + + + + + Care Team Providers + +------+ + | Care Stonehand Name | Role | Phone | + [...] | | n | low back | [address] | [place] | | | | | pain without | [place], | [place], [place] | | | | | sciatica | [place] [address] | [address] Phone: | | | | | Hyperalgesia | Phone: | [phone] | | | | | History of | [phone] | Fax: | | | | | lumbar | Fax: | [phone] | | | | | fusion | [phone] | | | | | | Failed [...] | | | | low back | [address] | TH[address]AP[address] | | | | | pain without | [place], | [place] | | | | | sciatica | [place] [address] | [place], [place] | | | | | Hyperalgesia | Phone: | [phone] | | | | | History of | [phone] | Phone: | | | | | lumbar | Fax: | [phone] | | | | | fusion | [phone] | Fax: | | | | | | | [phone] | +--------+ + + + + + Reason for Visit + + + | Reason | Comments | + + + | Back Pain | | + + + Evaluate & Treat (Routine) + +--------+ + + + + | Status | Reason | Specialty | Diagnoses / | Referred By | Referred To | | | | | Procedures | Contact | Contact | + +--------+ + + + + | Authorized | | Physical | Diagnoses | Matti, | Rocky Santos | | | | Medicine and | Lumbar | Caitlin Mccray MD | Anselmo Horvath MD [address] | | | | Rehabilitatio | spondylosis | [address] | [address] | | | | n | Procedures | [address] | [place], | | | | | Follow up | [place], | [place] [address] | | | | | [place] | [place] [address] | Phone: | | | | | 06/08/2019 | Phone: | [phone] | | | | | | [phone] | Fax: | | | | | | Fax: | [phone] | | | | | | [phone] | | + +--------+ + + + + Encounter Details +--------+---------+ + + + | Date | Type | Department | Care Team | Description | +--------+---------+ + + + | 04/19/ | Office | [facility] | Rocky Santos, | Chronic bilateral | | 2019 | Visit | PHYSIATRY [address] | MD [address] | low back pain | | | | [address] | [place] | without sciatica | | | | [facility] [place] | [address] | (Primary Dx); | | | | [address] | | Hyperalgesia; | | | | [phone] | | History of lumbar | | [...] within one week, please contact the clin . Once you have completed physical therapy please [...] fro m the original. Rocky Santos MD [address] [place] [address], [address] [place], [place] [id number] FAX: PHYSICAL MEDICINE AND REHABILITATION H&P CHIEF COMPLAINT: Chief Complaint Patient presents with Back Pain HISTORY OF PRESENT ILLNESS: Thea Carmona s a 73 y.o. female being seen today at t he request of Caitlin Chino MD for the complaint of bilateral low back pain. The symptoms have been gradually worsening. Thea Carmona has history of lumbar fusion x2. [...] wit h no improvement in pain. Thea Carmona reports that does at home exercises on [...] Acute sinusitis 09/14/2013 AF (paroxysmal atrial fibrillation) ([facility]) Alcohol abuse quit in 05/2012; 40 year habit Anemia Angina of effort ([facility]) Arrhythmia Arthritis Bursitis of left shoulder Conjunctivitis COPD (chronic obstructive pulmonary disease) ([facility]) on albuterol COPD exacerbation ([facility]) Depression HONG (dyspnea on exertion) Folliculitis Full dentures upper & lower GERD (gastroesophageal reflux disease) Hemorrhoids, internal, with bleeding Hx of blood clots Hyperlipidemia on simvastatin Hypertension on clonidine and lisinopril Hypothyroidism 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 Right wrist pain Spinal stenosis has tried cortisone injections Spondylolisthesis of cervical region Sputum culture positive for Scopulariopsis species Squamous cell carcinoma of lung (HCC) 07/2013 right lower lobe Stroke (HCC) 2006 Stroke (HCC) 2008 left sided weakness Thyroid disease Unspecified visual disturbance Upper GI bleed 06/[address] [facility] Vitamin D deficiency Wears dentures PAST SURGICAL HISTORY: Past Surgical History: Procedure Laterality Date BLADDER SUSPENSION 2000 BRONCHOSCOPY 07/11/2014 EBUS with right hilar LN biopsy, [facility] Dr. Sierra BRONCHOSCOPY N/A 09/16/2013 R. Thorascopic Lower Lobectomy and Thoracic Lymphadenectomy; Laterality: N/A Chest Right S urgeon: José Miguel Mace Jr., MD; Location: [facility] MAIN OR CATARACT REMOVAL CERVICAL FUSION Posterior 04/06/2013 with decompression C4-C6 Surgeon: Silviano Cabrera MD Location: [facility] MAIN OR CERVICAL FUSION Anterior 01/19/2013 C4-6 Surgeon: Silviano Cabrera MD; Location: [facility] MAIN OR CHOLECYSTECTOMY 2000 COLONOSCOPY 06/2014 ENDOSCOPY FINGER TRIGGER RELEASE Left 12/14/2018 Procedure: Left Thumb Trigger Finger Release, Left Index Trigger Finger Release, Left Long Trigger Finger Release, Left Ring Trigger Finger Release; Surgeon: Giuliano Padilla MD; Lo cation: M MAIN OR HAND ARTHROPLASTY Left 03/20/2015 Procedure: Left 1st C.M.C. Arthroplasty; Surgeon: Giuliano Padilla MD; Location: [facility] MAIN OR HAND ARTHROPLASTY Right 10/27/2017 Procedure: Right 1st CMC Arthroplasty; Surgeon: Giuliano Padilla MD; Location: [facility] MAIN O R INJECTION STEROIDAL Right 05/27/2012 L5 S1 TFESI INJECTION STEROIDAL Right 07/15/2012 Caudal Block with Cath Target R L5,S1 LOBECTOMY Right 09/16/2013 right lower lobe with bronchoscopy LUMBAR FUSION Anterior 03/29/2014 L4-5, L5-S1 Surgeon: Silviano Cabrera MD; Location: [facility] MAIN OR LUMBAR FUSION N/A 03/31/2014 with decompression; Surgeon: Silviano Cabrera MD; Location [facility] MAIN OR LUMBAR FUSION N/A 03/31/2014 L4-S1; Surgeon: Silviano Cabrera MD Location: [facility] MAIN OR LUNG BIOPSY Right 07/21/2013 right lower lobe SHOULDER SURGERY Right 12/2011 PENNY AND BSO 1974 THORACOSCOPY Right 09/16/2013 Surgeon: José Miguel Mace Jr., MD; Location: [facility] MAIN OR THUMB SURGERY 12/02/2011 TONGUE SURGERY benign per pt TUNNELED VENOUS PORT PLACEMENT N/A 07/28/2014 Procedure: Port Placement; Surgeon: Chalino Chiu MD; Location: [facility] MAIN OR CURRENT MEDICATIONS: Current Outpatient [...] Supplies (NEBULIZER/TUBING/MOUTHPIECE) KIT Use as directed with neb ulizer machine. Dx: COPD CASIE: lifetime 1 [...] has no apparent deficits with short or custodial memory. She has appropriate fund of knowledge [...] stimulator in detail. Spinal cord stimulation uses [employer] deviceto send signals tothe nerve pathways inside [...] stimulation including neuropsyc hology consult. A small medical coding auditor sends signals to your spinal cord. These [...] opiate pain medication is advised against for th e treatment of chronic pain. Pain clinic [...] | 2019 | Visit | | [address] | | | | | | [facility] | | | | | | [place] [address] | | | | | | [phone] | | | | | | | [...]
--- OUTSIDE RECORDS SUMMARY | ~2019-12-28 | XMS | Encounter Summary ---
Demographics + + + | Address | [address] | | | [place] [address] | + + + | Home Phone [...] [place] | | | | | [address] | | + + + + + Care Team Providers + +------+ + | Care Corporate Vp Advertising & Online Name | Role | Phone | + [...] | | Medicine | Sleep | Gurmeet Alvarenga MD | Devin Toney | | | | | disturbance | [address] | MD [address] | | | | | | [place], | [facility] | | | | | | [place] [address] | [facility] | | | | | | Phone: | [facility] [place] | | | | | | [phone] | [address] Phone: | | | | | | Fax: | [phone] | | | | | | [phone] | Fax: | | | | | | | [phone] | +--------+--------+ + + + + Encounter Details +--------+ + + + + | Date | Type | Department | Care Team | Description | +--------+ + + + + | 11/19/ | Orders Only | [facility] [place] | Gurmeet Vargas, | Sleep disturbance | | 2018 | | PULMONARY [address] | MD [address] | (Primary Dx) | | | | [place], | [place] [address] | | | | | [place] [address] | [phone] | | | | | [phone] | | | +--------+ + + + [...] | 2019 | Visit | | [address] | | | | | | [facility] | | | | | | [place] [address] | | | | | | [phone] | | | | | | | | +--------+---------+ + + + + + +--------+ + + | Name | Type | Priori | Associated Diagnoses | Order Schedule | | | | ty | | | + + +--------+ + + | AMB REFERRAL TO [facility] | Outpatient | Routin | Sleep disturbance | Ordered: 11/19/2017 | | [facility] [place] [facility] | Referral | e | | | + + +--------+ + + documented as of this encounter Visit Diagnoses + + | Diagnosis | + + | Sleep disturbance - Primary Sleep disturbance, unspecified | + + documented in this encounter"
--- OUTSIDE RECORDS SUMMARY | ~2019-12-28 | XMS | Encounter Summary ---
Demographics + + + | Address | [address] | | | [place] [address] | + + + | Home Phone [...] [place] | | | | | [address] | | + + + + + Care Team Providers + +------+ + | Care Rn Intensive Care Unit Name | Role | Phone | [...] + + | 05/14/ | Office | [facility] | Gurmeet Vargas, | Needs flu shot | | 2016 | Visit | PULMONARY [address] | [address] | (Primary Dx); | | | | [facility], | [place] [address] | [place] | | | | [place] [address] | [phone] | emphysema (HCC); | | | | [phone] | | Chronic bronchitis, | | | [...] Gurmeet Vargas MD - 2016 3:07 PM [id number] woman with emphysema and chronic bronchitis from [...] Park. Her lung cancer was resected in [place] in 2012, but was discovered to be [...] | 2019 | Visit | | [address] | | | | | | [facility] | | | | | | [place] [address] | | | | | | [phone] | | | | | | | [...]
--- OUTSIDE RECORDS SUMMARY | ~2019-12-28 | XMS | Encounter Summary ---
Demographics + + + | Address | [address] | | | [place] [address] | + + + | Home Phone [...] [place] | | | | | [address] | | + + + + + Care Team Providers + +------+ + | Care Cryogenic Transport Driver Name | Role | Phone | + +------+ + | Davis Ivan MD | PCP | | + +------+ + Encounter Details +--------+ + + + + | Date | Type | Department | Care Team | Description | +--------+ + + + + | 11/11/ | Hospital | [facility] | Conversion | Pain | | 2013 | Encounter | CONVERSION [address] | Transaction, | | | | | [place] [address] | Provider Unknown | | | | | [place] | [phone] | | | | | [address] | | | | | | [phone] | | | +--------+ + + + [...] | 2019 | Visit | | AM[address]DA[address] | | | | | | [facility] | | | | | | [place] [address] | | | | | | [phone] | | | | | | | [...]
--- OUTSIDE RECORDS SUMMARY | ~2019-12-28 | XMS | Encounter Summary ---
Demographics + + + | Address | [address] | | | [place] [address] | + + + | Home Phone [...] [address] | | | | | [address] | | + + + + + Care Team Providers + +------+ + | Care Committee Member Name | Role | Phone | + +------+ + | Davis Ivan MD | PCP | | + +------+ + Reason for Visit +--------+--------+ + | Reason | Onset | Comments | | | Date | | +--------+--------+ + | Other | 09/26/ | | | | 2014 | | +--------+--------+ + Encounter Details +--------+ + + + + | Date | Type | Department | Care Team | Description | +--------+ + + + + | 09/26/ | Telephone | [facility] | Adelita Lu MD | Other | | 2014 | | MED CTR MEDICAL | Need updated | | | | | [facility]OG[facility] CLINIC [address] | address | | | | | [address] | | | | | | [place] [address] | | | | | | [phone] | | | +--------+ + + + [...] this encounter Miscellaneous Notes Telephone Encounter - Codi Wang RN - 09/26/2014 3:46 PM PDTI returned pt's call aft er speaking with Dr. Lu. Dr. Lu stated Thea could go back on her methotrexate.Electro nically signed by Codi Wang RN at 09/26/2014 3:47 PM PDTTelephone Encounter - Leandra Turpin - 09/26/2014 3:31 PM PDTThea is wondering if she can start taking her methotrexat e again. She has been off of it for the past [address] Lu's recommendation. She fee ls she needs to be taking it again for her arthritis. documented in this encounter Plan of Treatment +--------+---------+ + + + | Date | Type | Specialty | Care Team | Description | +--------+---------+ + + + | 03/06/ | Office | Rheumatology | Santosh Sumner, | | | 2019 | Visit | | [address] | | | | | | [place] | | | | | | [place] [address] | | | | | | [phone] | | | | | | | | +--------+---------+ + + + documented as of this encounter Visit Diagnoses Not on filedocumented in this encounter"
--- OUTSIDE RECORDS SUMMARY | ~2019-12-28 | XMS | Encounter Summary ---
Demographics + + + | Address | [address] | | | [place] [address] | + + + | Home Phone [...] [place] | | | | | [address] | | + + + + + Care Team Providers + +------+ + | Care Healthcare Business Analyst Name | Role | Phone | + +------+ + | Dvais Ivan MD | PCP | | + +------+ + Encounter Details +--------+ + + + + | Date | Type | Department | Care Team | Description | +--------+ + + + + | 08/21/ | Orders Only | [facility] | Jimmy Banegas DO | Cough due to | | 2014 | | MED CTR RADIATION | [address] | bronchospasm | | | | ONCOLOGY [address] | [place] | (Primary Dx) | | | | [place], | [address] | | | | | [place] [address] | | | | | | [phone] | | | +--------+ + + + [...] | 2019 | Visit | | [address] | | | | | | [facility] | | | | | | [place] [address] | | | | | | [phone] | | | | | | | | +--------+---------+ + + + documented as of this encounter Visit Diagnoses + + | Diagnosis | + + | Cough due to bronchospasm - Primary Acute bronchospasm | + + documented in this encounter"
--- OUTSIDE RECORDS SUMMARY | ~2019-12-28 | XMS | Encounter Summary ---
Demographics + + + | Address | [address] | | | [place] [address] | + + + | Home Phone [...] [place] | | | | | [address] | | + + + + + Care Team Providers + +------+ + | Care Compensation Specialist Name | Role | Phone | [...] + + | 05/02/ | Office | [facility] [place] | Giuliano Padilla, | Postop check | | 2014 | Visit | ORTHOPEDIC SURGERY | MD [address] | (Primary Dx) | | | | [address] | [place] | | | | | [place] | [address] | | | | | [address] | | | | | | [phone] | | | +--------+---------+ + + + [...] | 2019 | Visit | | [address] | | | | | | [facility] | | | | | | [place] [address] | | | | | | [phone] | | | | | | | | +--------+---------+ + + + documented as of this encounter Visit Diagnoses + + | Diagnosis | + + | Postop check - Primary Follow-up examination, following unspecified surgery | + + documented in this encounter
--- OUTSIDE RECORDS SUMMARY | ~2019-12-28 | XMS | Encounter Summary ---
Demographics + + + | Address | [address] | | | [place] [address] | + + + | Home Phone [...] [place] | | | | | [address] | | + + + + + Care Team Providers + +------+ + | Care Boatswain'S Mate Name | Role | Phone | + +------+ + | Davis Ivan MD | PCP | | + +------+ + Reason for Visit +---------+--------+ + | Reason | Onset | Comments | | | Date | | +---------+--------+ + | Results | 09/06/ | Ct results | | | 2014 | | +---------+--------+ + Encounter Details +--------+ + + + + | Date | Type | Department | Care Team | Description | +--------+ + + + + | 09/06/ | Telephone | [facility] [place] | Claudia, | Results (Ct results) | | 2014 | | PULMONARY [address] | Ayana Looney MD | | | | | [place], | | | | | | [place] [address] | | | | | | [phone] | | | +--------+ + + + [...] Telephone Encounter - Diann Leal RN - 09/06/2014 2:33 PM PDTJody returned our call and was told that Dr Taylor had reviewed her CT and said that it was stable with no new findings. She was told that her symptoms may be from her COPD or may be from reflux but do not appear to be from the chemo or radation. She stated understanding and then asked if th at was all. She was told that was it and she said, 'thank you". elephone Encounter - Diann Leal RN - 12/2014 2:32 PM PDT----- Message from Ayana Taylor MD sent at 09/06/2014 7:10 PDT - ---- Please let Thea Carmona know that their chest CT was stable. No new findings. Her symptoms may be her COPD, or reflux related, but do not seem to be from chemotherapy or from radiation. documente d in this encounter Plan of Treatment +--------+---------+ + + + | Date | Type | Specialty | Care Team | Description | +--------+---------+ + + + | 03/06/ | Office | Rheumatology | Santosh Sumner, | | | 2019 | Visit | | [address] | | | | | | [place] | | | | | | [place] [address] | | | | | | [phone] | | | | | | | | +--------+---------+ + + + documented as of this encounter Visit Diagnoses Not on filedocumented in this encounter
--- OUTSIDE RECORDS SUMMARY | ~2019-12-28 | XMS | Encounter Summary ---
Demographics + + + | Address | [address] | | | [place] [address] | + + + | Home Phone [...] [place] | | | | | [address] | | + + + + + Care Team Providers + +------+ + | Care Airport Driver Name | Role | Phone | [...] | Physical | Diagnoses | Tom, | Yariel, | | | Services | Medicine and | Cervicalgia | Rocky Horvath MD | [place] C[place], | | | Required | Rehabilitatio | Facet | [address] | | | | | n | arthritis of | [address] | | | | | | cervical | [place], | | | | | | region | [place] [address] | | | | | | History of | Phone: | | | | | | fusion of | [phone] | | | | | | cervical | Fax: | | | | | | spine | [phone] | | +--------+ + + + + + Reason for Visit +--------+--------+ + | Reason | Onset | Comments | | | Date | | +--------+--------+ + | Other | 08/16/ | | | | 2020 | | +--------+--------+ + Encounter Details +--------+ + + + + | Date | Type | Department | Care Team | Description | +--------+ + + + + | 08/16/ | Telephone | [facility] [place] | Rocky Santos, | Other | | 2020 | | PHYSIATRY [address] | MD [address] | | | | | [address] | [place] | | | | | [place] | [address] | | | | | [address] | | | | | | [phone] | | | +--------+ + + + [...] encounter Miscellaneous Notes Telephone Encounter - Indy Littlejohn Manager Hiv - 08/17/2019 9:45 AM PDTNew o mansoorer placed. 9 :47 AM PDTdocumented in this encounter Plan of Treatment +--------+---------+ + + + | Date | Type | Specialty | Care Team | Description | +--------+---------+ + + + | 03/06/ | Office | Rheumatology | Santosh Sumner, | | | 2019 | Visit | | [address] | | | | | | [facility] | | | | | | [place] [address] | | | | | | [phone] | | | | | | | | +--------+---------+ + + + + + +--------+ + + | Name | Type | Priori | Associated Diagnoses | Order Schedule | | | | ty | | | + + +--------+ + + | Esteban Physical | Outpatient | Routin | Cervicalgia Facet | Ordered: 08/17/2019 | | Medicine and Rehab - | Referral | e | arthritis of | | | AMB Referral | | | cervical region | | [...]
--- OUTSIDE RECORDS SUMMARY | ~2019-12-28 | XMS | Encounter Summary ---
Demographics + + + | Address | [address] | | | [place] [address] | + + + | Home Phone [...] [place] | | | | | [address] | | + + + + + Care Team Providers + +------+ + | Care Application Development Intern Name | Role | Phone | [...] + + + + | 08/29/ | Virtual | [facility] | Santosh Sumner, | Rheumatoid | | 2020 | Office | RHEUMATOLOGY [address] | [facility] [address] | arthritis, involving | | | Visit | [facility] | [facility] | unspecified site, | | | | [place], [place] | [place] [address] | unspecified | | | | [address] | [phone] | rheumatoid factor | | | | [phone] | | presence (HCC) | | | [...] encounter Patient Instructions Patient Instructions Duyen Gonsalves, After School Coordinator - 08/30/2019 2:10 PM PDTWe hop e that you have experienced exceptional care today and that you found our service to be cour teous and helpful. ? If you have any questions/concerns or need medication refills you can send us a message/r equest using [employer]AT[employer] or by calling our office at [phone]. o If you would like to reach my medical staff assistant, Eileen Gonsalves please call [phone] Ext: [phone] ? If you are unable to reach [...] can also look at your results on [employer]AT[employer]. If you are experiencing an emergency, please call [phone] documented in this encounter Progress Notes Santosh Sumner PA-C - 08/30/2019 2:10 PM PDTFormatting of this note might be different f rom the original. Subjective: Patient ID: Thea Carmona is a 74 y.o. female. Rheumatological History: Thea Carmonais a [...] cancer: She is a 69-year-old woman from [facility] who was previously being diagnosed with mo [...] chemotherapy treatment. Initially seen by: Dr. Stella MDon: 03/10/2018 Pertinent Serology:Positive Rf Pertinent Imaging: None Tried and failed oral DMARDs include: None Tried and failed biologic DMARDs include: None Tried and failed NSAIDs: None History of Present Illness Visit Diagnosis: Rheumatoid Arthritis Appointment type: Follow up Chief Complaint Patient presents with Follow-up Consent: Patient, Thea Carmona has verbally and independently initiated the visit with Santosh Sumner PA-C on 08/30/2019 and consents to receive care by Telephone. Best phone number for contact and follow up: [phone] Is it okay to leave a message if we are unable to reach you? yes Interval History: 07/20/2018: she is on MTX [...] Chemothera py and PDN 10 mg/day. Interval History:10/28/2018:The patient states that she is doing well on 6 tabs of her Methotrexate and she states that she was on 4 tabs and went up to 6 tabs on her last visit a nd after going up on the amount she has noticed a sigificant improvement in her joint pain. She does use prednisone. She was found to have afib and is on a new medication in which she does not remember the same. She states otherwise she has no concerns and is doing better Interval History: 02/22/2019:The patient states thatshe has had some more aches in genera l that are worse in the evening and better with rest. She states her shoulders, back and kne es have been aching. She denies any significant swelling or stiffness. She states that in e morning she is doing okay and that its as she gets going and or the cold hurts her. Interval History: 05/30/2019 The patient states that she was in the ER and had a PE and was discharged the 12 of May. She put her on warfrin. She states that she still has the clot. She states she had a colonscopy and that's when she develpoped a PE. She is having naomi e trouble breathing Last Seen On: 05/30/2019 by Santosh Sumner PA-C Today's Date: 08/30/2019 Any changes in overall health since last visit: No Current rheumatological medications: 15mg Methotrexate weekly with 1mg Folic Acid daily Current chief complaint: The patient states that she has been doing well with no major conc erns. She has some issues with her neck but otherwise has no complaints. She states she is d oing really good. Rating Scale: 0 Morning stiffness lasting: <30 Minutes Quality: Stiff Severity: Mild Duration: 1-3 months Timing: Morning>Evening Aggravated by: Rest/Sleep Relieved by: Activity/Movement The patient denies any signs of: infection, fever and abdominal pain The following portions of the patient's history were reviewed and updated as appropriate an d is available with the EMR: allergies, current medications, past family history, past medic al history, past social history, past surgical history and problem list. Review of Systems Constitutional: Negative for fatigue and fever. HENT: Negative for mouth sores. Eyes: Negative for pain and redness. Respiratory: Negative for cough and shortness of breath. Cardiovascular: Negative for chest pain. Gastrointestinal: Negative for abdominal pain and blood in stool. Genitourinary: Negative for dysuria and hematuria. Musculoskeletal: Negative for joint swelling. Arthralgias: stable Skin: Negative for rash. Neurological: Negative for numbness and headaches. Psychiatric/Behavioral: The patient is not nervous/anxious. ISantosh PA-C, reviewed the above ROS. Past Medical History: Diagnosis Date Acid reflux disease Acute recurrent pansinusitis Acute sinusitis 09/14/2013 AF (paroxysmal atrial fibrillation) ([facility]) Alcohol abuse quit in 05/2012; 40 year habit Anemia Angina of effort ([facility]) Arrhythmia Arthritis Bursitis of left shoulder Conjunctivitis COPD (chronic obstructive pulmonary disease) ([facility]) on albuterol COPD exacerbation ([facility]) Depression HONG (dyspnea on exertion) Folliculitis Full dentures upper & lower GERD (gastroesophageal reflux disease) Hemorrhoids, internal, with bleeding Hx of blood clots Hyperlipidemia on simvastatin Hypertension on clonidine and lisinopril Hypothyroidism 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 CASIE: 12 months Dx: J44.9, Disp: 360 mL, Rfl: 3 benzonatate (TESSALON) 100 mg capsule, take 1 capsule by mouth three times a day if ne eded for cough, Disp: , Rfl: budesonide (PULMICORT) 0.5 mg/2 mL nebulizer solution, Take 2 mLs by nebulization 2 ti mes daily. Duration: Lifetime Dx: COPD J44.9, Disp: 120 mL, Rfl: 5 Carboxymethylcellulose Sodium (REFRESH TEARS OP), Apply to eye., Disp: , Rfl: cholecalciferol (VITAMIN D-3) 1,000 units capsule, Take 2,000 Units by mouth Daily., D isp: , Rfl: DULoxetine (CYMBALTA) [address] capsule, Take 60 mg by mouth daily., Disp: , Rfl: DULoxetine (DRIZALMA SPRINKLE) [address] capsule, Daily., Disp: , Rfl: folic acid 1 mg tablet, Take 1 mg by mouth Daily., Disp: , Rfl: 0 levothyroxine (SYNTHROID) 112 mcg tablet, Take 1 tablet by mouth Daily., Disp: , Rfl: 0 methotrexate 2.5 mg tablet, take 8 tablets by mouth every week, Disp: 32 tablet, Rfl: 2 metoprolol succinate (TOPROL-XL) 25 mg 24 hr tablet, Take 1 tablet by mouth daily., Di sp: , Rfl: montelukast (SINGULAIR) 10 mg tablet, , Disp: , Rfl: pantoprazole (PROTONIX) 40 mg tablet, Take 40 mg by mouth 2 times daily (before meals) ., Disp: , Rfl: 0 predniSONE (DELTASONE) 5 mg tablet, take 2 tablets by mouth every morning, Disp: , Rfl : 0 Respiratory Therapy Supplies (NEBULIZER COMPRESSOR) KIT, Use as directed with nebulize r medication. Dx: COPD CASIE: Lifetime., Disp: 1 each, Rfl: 0 Respiratory Therapy Supplies (NEBULIZER/TUBING/MOUTHPIECE) KIT, Use as directed with n ebulizer machine. Dx: COPD CASIE: lifetime, Disp: 1 each, Rfl: 12 roflumilast (DALIRESP) 500 mcg tablet, Take 500 mcg by mouth daily., Disp: , Rfl: simvastatin (ZOCOR) 40 mg tablet, Take 40 mg by mouth nightly., Disp: , Rfl: spironolactone (ALDACTONE) 25 mg tablet, take 1 tablet by mouth once daily - WATER PIL L FOR LEG SWELLING, Disp: , Rfl: TURMERIC PO, Take by mouth., Disp: , Rfl: venlafaxine (EFFEXOR XR) 75 mg 24 hr capsule, , Disp: , Rfl: warfarin (COUMADIN) 5 mg [...] known problems Son Asthma Other Diabetes Other Social History Socioeconomic History Marital status: Spouse name: Not on file Number of children: Not on file Years of education: Not on file Highest education level: Not on file Occupational History 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 Social Needs Financial resource strain: Not on file Food insecurity: Worry: Not on file Inability: Not on file Transportation needs: Medical: Not on file Non-medical: Not on file Tobacco Use Smoking status: Former Smoker Packs/day: 1.00 Years: 50.00 Pack years: 50.00 Types: Cigarettes Start date: 03/08/1952 Last attempt to quit: 07/24/2016 Years since quittin.1 Smokeless tobacco: Never Used Substance and Sexual Activity Alcohol use: Not Currently Alcohol/week: 0.0 standard drinks Comment: pt states she was an alcoholic for 40 years but quit in 05/2012 Drug use: Not Currently Comment: marijuana in the remote past Sexual activity: Not on file Lifestyle Physical activity: Days per week: Not on file Minutes per session: Not on file Stress: Not on file Relationships Social connections: Talks on phone: Not on file Gets together: Not on file Attends scientology service: Not on file Active member of club or organization: Not on file Attends meetings of clubs or organizations: Not on file Relationship status: Not on file Intimate partner violence: Fear of current or ex partner: Not on file Emotionally abused: Not on file Physically abused: Not on file Forced sexual activity: Not on file Other Topics Concern Not on file Social History Narrative Lives: in [place] With: alone Grew up: in [place] Has previously lived in: [place] Exposure to toxic chemicals: no Exposure to asbestos: no Exposure to tuberculosis: no Has had a PPD or Quantiferon before: no Has pets at home: cat and a dog Has ever owned birds: yes, 5 years ago Other animal exposures: no Hobbies: used to jaja, crossword puzzles, walking her dog No Known Allergies Objective: Physical Exam Constitutional: General: She is not in acute distress. Appearance: She is well-developed. Pulmonary: Effort: Pulmonary effort is normal. No respiratory distress. Neurological: General: No focal deficit present. Mental Status: She is alert and oriented to person, place, and time. Psychiatric: Mood and Affect: Mood normal. Behavior: Behavior normal. Thought Content: Thought content normal. Judgment: Judgment normal. Lab Data: Lab Results Component Value Date WBC 10.62 02/22/2019 HGB 12.7 02/22/2019 HCT 38.3 02/22/2019 MCV 96.2 02/22/2019 MCH 31.8 02/22/2019 MCHC 33.1 02/22/2019 PLT 366 02/22/2019 MPV 7.8 02/22/2019 Lab Results Component Value Date NA 139 02/22/2019 K 3.2 (L) 02/22/2019 CL 102 02/22/2019 CO2 30 02/22/2019 ANIONGAP 10 02/22/2019 GLU 110 (H) 02/22/2019 CALCIUM 9.3 02/22/2019 BILITOT 0.4 10/28/2018 ALT 25 02/22/2019 TOTALPROTEIN 6.3 09/28/2018 ALBUMIN 3.4 02/22/2019 Lab Results Component Value Date CRP 2.7 (H) 02/22/2019 Lab Results Component Value Date ESR 65 (H) 02/22/2019 Imaging: No results found for this or any previous visit (from the past 360 hour(s)). Laboratory results were reviewed in [facility] as well as chart notes and [...] 1mg Folic Acid daily and doing well. We will make no changes and see her back in 3 months Discussed risks and benefits of this medication. [...] may produce reversible infertility in men. Relevant Medications methotrexate 2.5 mg tablet Other High risk medication use The patient [...] rheumatological therapy. There is evidence of COPD I spent a total of 5 minutes of Moderate complexity counseling with the patient and/or fami ly. Risks and benefits of a treatment plan [...] decision making was involved in today's visit. documented in this encounter Miscellaneous Notes Assessment & Plan Note - Santosh Sumner PA-C - 08/30/2019 1:45 PM PDTAssociated Problem( s): High risk medication useThe patient was counseled regarding medication compliance and ro utine laboratory monitoring due to the potential toxicities with rheumatological medications such as but not limited to; hematologic toxicity, hepatotoxicity, renal dysfunction and inc reased risks for infections. Basic Labs Monitored (CBC, CMP, ESR and [...] rheumatological therapy. There is evidence of COPD ssessment & Plan Note - Santosh Sumner PA-C - 08/30/2019 1:45 PM PDTAssociated Pr oblem(s): Rheumatoid arthritis The patient returns to the clinic for a follow up appointment . She is on 15mg Methotrexate weekly with 1mg Folic Acid daily and doing well. We will make no changes and see her back in 3 months Discussed risks and benefits of this medication. [...] and may produce reversible infertility in men. Electron yamilka signed by Santosh Sumner PA-C at 08/30/2019 2:20 PM PDTdocumented in this encounter Plan of Treatment +--------+---------+ + + + | Date | Type | Specialty | Care Team | Description | +--------+---------+ + + + | 03/06/ | Office | Rheumatology | Santosh Sumner, | | | 2019 | Visit | | [facility] [address] | | | | | | [facility] | | | | | | [place] [address] | | | | | | [phone] | | | | | | | [...]
--- OUTSIDE RECORDS SUMMARY | ~2019-12-28 | XMS | Encounter Summary ---
Demographics + + + | Address | [address] | | | [place] [address] | + + + | Home Phone [...] [place] | | | | | [address] | | + + + + + Care Team Providers + +------+ + | Care Chip Loft Worker Name | Role | Phone | [...] + + | 08/22/ | Hospital | [facility] | Adelita Lu MD | Recurrent squamous | | 2015 | Encounter | MED CTR CHEMO | Need updated | cell carcinoma of | | | | INFUSION [address] | address | lung, unspecified | | | | [place], | | laterality (HCC); | | | | [place] [address] | | Pulmonary nodules | | | | [phone] | | | +--------+ + + + [...] | 2019 | Visit | | [facility] [address] | | | | | | [facility] | | | | | | [place] [address] | | | | | | [phone] | | | | | | | [...] + + + | White Blood | 4.6 | 4.0 - 11.0 K/uL | [facility] | | | Cells | | | [facility] | | | [facility] | [facility] | | | | | | CENTER - | | | | | | LABORATORY | | + + + + + + | Red Blood | 3.73 | 3.70 - 5.20 | [...] [address] | [place] | [phone] | | [facility] | | [address] | | | - LABORATORY | | [...] 12 | 7 - 18 mg/dL | [facility] | | | | | | [facility] | | | | | | MEDICAL | | | | | | CENTER - | | | | | | LABORATORY | | + + + + + + | Creatinine | 0.80 | 0.60 - 1.30 | [facility] | | | | | mg/dL | [facility] | | | | | | MEDICAL | | | | | | CENTER - | | | | | | LABORATORY | | + + + + + + | eGFR, | >60Comment: GLOMERULAR | >=60 | [facility] | | | non- | FILTRATION | mL/min/1.73m2 | [facility] | | | [place] | RATE,ESTIMATED | | MEDICAL | | | | mL/min/1.39a6Vjkh than | | CENTER - | | [...] + | [facility] | [address] | [place], [place] | [phone] | | [facility] | | [address] | | | - LABORATORY | | [...] | | | per SWOG calculation per Dr. | | | | | | | [...]
--- OUTSIDE RECORDS SUMMARY | ~2019-12-28 | XMS | Encounter Summary ---
Demographics + + + | Address | [address] | | | [place] [address] | + + + | Home Phone [...] [place] | | | | | [address] | | + + + + + Care Team Providers + +------+ + | Care Razor Grinder Name | Role | Phone | [...] | | | [address] | [place] [address] | | | | | [place] [address] | | | | | | [phone] | | | +--------+ + + + [...] | 2019 | Visit | | [address] [address] | | | | | | [place] | | | | | | [place] [address] | | | | | | [phone] | | | | | | | | +--------+---------+ + + + documented as of this encounter Procedures + +--------+ + + + | Procedure Name | Priori | Date/Time | Associated Diagnosis | Comments | | | ty | | | | + +--------+ + + + | CT ANGIOGRAM CHEST W | Routin | 05/05/2019 | | Results for this | | CONTRAST | e | 12:05 AM | | procedure are in the | | | | PST | | results section. | + +--------+ + + + documented in this encounter Results CT Angiogram Chest W Contrast (05/05/2019 12:05 AM PST) + + | Specimen | [...]
--- OUTSIDE RECORDS SUMMARY | ~2019-12-28 | XMS | Encounter Summary ---
Demographics + + + | Address | [address] | | | [place] [address] | + + + | Home Phone [...] [address] | | | | | [address] | | + + + + + Care Team Providers + +------+ + | Care Business Operations Specialist Name | Role | Phone | + +------+ + | Davis Ivan MD | PCP | | + +------+ + Reason for Visit +--------+--------+ + | Reason | Onset | Comments | | | Date | | +--------+--------+ + | Other | 06/12/ | DuoNeb | | | 2015 | | +--------+--------+ + Encounter Details +--------+ + + + + | Date | Type | Department | Care Team | Description | +--------+ + + + + | 06/12/ | Telephone | [facility] [place] | [place], | Other (DuoNeb) | | 2015 | | PULMONARY [address] | Ayana Looney MD | | | | | [place], | | | | | | [place] [address] | | | | | | [phone] | | | +--------+ + + + [...] Telephone Encounter - Sara Evans RN - 06/12/2015 2:43 PM Anna Marie called asking if the DuoNeb could be ordered at [facility]. Ordered. documented in this encounter Plan of Treatment +--------+---------+ + + + | Date | Type | Specialty | Care Team | Description | +--------+---------+ + + + | 03/06/ | Office | Rheumatology | Santosh Sumner, | | | 2019 | Visit | | [address] | | | | | | [facility] | | | | | | [place] [address] | | | | | | [phone] | | | | | | | | +--------+---------+ + + + documented as of this encounter Visit Diagnoses + + | Diagnosis | + + | Chronic obstructive pulmonary disease, unspecified COPD type (HCC) - Primary | + + documented in this encounter"
--- OUTSIDE RECORDS SUMMARY | ~2019-12-28 | XMS | Encounter Summary ---
Demographics + + + | Address | [address] | | | [place] [address] | + + + | Home Phone [...] [place] | | | | | [address] | | + + + + + Care Team Providers + +------+ + | Care Core Winder Name | Role | Phone | + +------+ + | Davis Ivan MD | PCP | | + +------+ + Encounter Details +--------+ + + + + | Date | Type | Department | Care Team | Description | +--------+ + + + + | 08/02/ | Hospital | [facility] | [place], | | | 2013 | Encounter | MED CTR EMERGENCY | Lokesh Horvath MD [address] | | | | | [address] | [facility] | | | | | [place], [place] | [place] [address] | | | | | [address] | [phone] | | | | | [phone] | | | +--------+ + + + [...] | | 0 | | | | (BENJAMIN OSEI) | 3 times daily. | | | [...] +---------+--------+ + documented as of this encounter ED Notes Lokesh Cheng MD - 08/02/2013 1:18 PM [facility] [address] Patient Name: TENA CARMONA Provider: Unit #: [id number] Location: : 1945 DATE: 08/02/2013 TIME: 1140 CHIEF COMPLAINT: Nosebleed. PRIMARY CARE PHYSICIAN: Gregg Ivan MD HISTORY OF PRESENT ILLNESS: A 68-year-old female who had a spontaneous right-sided epistax is this morning. She has had no injury or trauma. She does not have any problems with these routinely. She does take aspirin and Plavix both. PAST MEDICAL HISTORY: She has had a recent cervical fusion. She has hypertension, lung bio psy which just came back apparently positive for cancer. She had previous stroke. CURRENT MEDICATIONS: Include 1. Aspirin. 2. Vitamin D3. 3. Clonidine. 4. Plavix. 5. Iron. 6. Synthroid. 7. Lisinopril. 8. Magnesium. 9. Methotrexate. 10. Prednisone. 11. Simvastatin. 12. Venlafaxine. ALLERGIES: NONE. REVIEW OF SYSTEMS: A 10-system review is negative except as noted above. SOCIAL HISTORY: Quit smoking in 2012. PHYSICAL EXAMINATION VITAL SIGNS: Blood pressure 119/63, heart rate 76, respirations 18, temperature 97.6, O2 s aturation 95 %. GENERAL APPEARANCE: This is a female patient sitting up, speaking normally. HEENT: Focused exam of the nares shows epistaxis from the right naris. It looks like she h as a little bit of a septal defect very posteriorly as there is a little bit of bleeding co david through the left naris as well, but there does not appear to be active site of bleedin g in the left naris. EMERGENCY DEPARTMENT COURSE: We went ahead and had her blow out clots. I placed some Nose Numb soaked gauze in the nose for 20 minutes. I then removed it and she had a couple small areas of bleeding which were easily cauterized with anterior use of QR powder. After anothe r 20-minute observation period, she had no further bleeding and was able to be discharged w [facility] detailed epistaxis instructions. IMPRESSION SPONTANEOUS EPISTAXIS. DICTATED BY: Lokesh Cheng MD Emergency Medicine JOB #: [id number] EXT JOB #:[id number] <<Signature on File>> Lokesh boo MD08/04/13700 < documented in this encounter Plan of Treatment +--------+---------+ + + + | Date | Type | Specialty | Care Team | Description | +--------+---------+ + + + | 03/06/ | Office | Rheumatology | Santosh Sumner, | | | 2019 | Visit | | [address] | | | | | | [place] | | | | | | [place] [address] | | | | | | [phone] | | | | | | | | +--------+---------+ + + + documented as of this encounter Visit Diagnoses Not on filedocumented in this encounter"
--- OUTSIDE RECORDS SUMMARY | ~2019-12-28 | XMS | Encounter Summary ---
Demographics + + + | Address | [address] | | | [place] [address] | + + + | Home Phone [...] [address] | | | | | [address] | | + + + + + Care Team Providers + +------+ + | Care Brim Edge Trimmer Name | Role | Phone | + +------+ + | Davis Ivan MD | PCP | | + +------+ + Reason for Visit +--------+--------+ + | Reason | Onset | Comments | | | Date | | +--------+--------+ + | Other | 08/15/ | O2 needs | | | 2014 | | +--------+--------+ + Encounter Details +--------+ + + + + | Date | Type | Department | Care Team | Description | +--------+ + + + + | 08/15/ | Telephone | [facility] [place] | [place], | Other (O2 needs) | | 2014 | | PULMONARY [address] | Ayana Looney MD | | | | | [place], | | | | | | [place] [address] | | | | | | [phone] | | | +--------+ + + + [...] Telephone Encounter - Sara Evans RN - 08/15/2014 4:45 PM PDTCalled Thea yesterday and she returned my call today. Discussed O2 needs. Thea states that she gets very short o f breath with exertion. She is fine at rest. Will order and schedule a walking oximetry when she has a follow up next week. documented in this encounter Plan of Treatment +--------+---------+ + + + | Date | Type | Specialty | Care Team | Description | +--------+---------+ + + + | 03/06/ | Office | Rheumatology | Santosh Sumner, | | | 2019 | Visit | | [facility] [address] | | | | | | [facility] | | | | | | [place] [address] | | | | | | [phone] | | | | | | | | +--------+---------+ + + + documented as of this encounter Visit Diagnoses + + | Diagnosis | + + | Shortness of breath on exertion - Primary Shortness of breath | + + documented in this encounter"
--- OUTSIDE RECORDS SUMMARY | ~2019-12-28 | XMS | Encounter Summary ---
Demographics + + + | Address | [address] | | | [place] [address] | + + + | Home Phone [...] [place] | | | | | [address] | | + + + + + Care Team Providers + +------+ + | Care Children'S Service Worker Name | Role | Phone | + +------+ + | Davis Gilbert MD | PCP | | + +------+ + Encounter Details +--------+ + + + + | Date | Type | Department | Care Team | Description | +--------+ + + + + | 03/29/ | Hospital | [facility] | Silviano Cabrera MD | | | 2013 - | Encounter | [facility] [address] | [address] | | | | | [address] | [place], [place] | | | 04/07/ | | [place], [place] | [address] | | | 2013 | | [address] | | | | | | [phone] | | | +--------+ + + + [...] Date of Service: 04/07/14 1016 Status: Signed Bleach Boiler Filler: RITA Rubio (Advanced Registered Nurse Practitioner) [facility] Service: Orthopedic Surgery Brief Post-op Discharge [...] Follow up: Dr. Cabrera within 2 weeks [id number] Medication List START taking these medications oxyCODONE-acetaminophen [...] are the prescriptions that you need to cotton picker. You may get the following medications from [...] 1 each | 99 | 08/23/19 | 04/08/201 | | Therapy Supplies | 5-9 cm [...] Note by Mayelin Rankin RN at 04/07/14 350 Author: Mayelin Rankin RN Service: (none) Author Type: Registered Nurse Filed: 04/07/14 3844 Date of Service: 04/07/141618 Status: Signed Bleach Boiler Filler: Mayelin Rankin RN (Registered Nurse) Discharged to home with instructions, prescriptions, and belongings. Accompanied by husban d. Eager to be discharged. Ambulating with TLSO on, voids, pain controlled with PO pain meds . Appetite good, no nausea. onver robert Transaction, Provider Unknown - 04/07/2014 2:21 PM PST Therapy Progress Note by BRITTANY Walters at 04/07/14 1421 Author: BRITTANY Walters Service: (none) Author Type: Occupational Therapist Filed: 04/07/14 1440 Date of Service: 04/07/141420 Status: Signed Bleach Boiler Filler: BRITTANY Walters (Mathematical Scientist) 04/07/14 142 OT Last Visit OT Received On 04/07/14 Reason for Treatment Spinal surgery Requires OT Follow Up Yes Assistance Required 1 person Boat Fueler Needed No Family/Caregiver Present Yes Precautions Spinal Precautions Lumbar Other Precautions fall risk Other Comments Comments pt supine in bed upon LULI arrival. pt waiting for X-ray to be [...] Type of Devices Call lite in place 04/07/141420 Plan Treatment Interventions (per OT POC) Progress Slow progress, decreased activity tolerance Requires OT Follow Up Yes Recommendation Recommendation Short-term skilled OT Equipment Recommended Cattle Manager;Sock aid;Elastic shoe laces;Sponge long handled Education Completed: [...] (none) Author Type: Registered Nurse Filed: 04/07/14 1307 Date of Service: 04/07/14 1306 Status: Signed Bleach Boiler Filler: Mayelin Rankin RN (Registered Nurse) Patient's significant other came to desk stating that he didn't want her to be discharged u ntil a lumbar x-ray was done. Vidal Sha notified and order received. onver robert Transaction, Provider Unknown - 04/07/2014 11:15 AM PST Case Management by CLAIRE Lee at 04/07/14 1115 Author: CLAIRE Lee Service: (none) Author Type: Machine Molder Squeeze Filed: 04/07/14 1117 Date of Service: 04/07/14 1115 Status: Signed Bleach Boiler Filler: CLAIRE Lee (Machine Molder Squeeze) arranged for [facility] physical therapy as they are the provider for the [facility], [place] area. Pt had no other resource concerns at this time. Colin SOSA onver robert Transaction, Provider Unknown - 04/07/2014 10:33 AM PST Therapy Progress Note by Denver Arias PTA at 04/07/14 1033 Author: Denver Arias PTA Service: (none) Author Type: Television Inspector Filed: 04/07/14 1101 Date of Service: 04/07/14 1033 Status: Signed Bleach Boiler Filler: Denver Arias PTA (Television Inspector) 04/07/14 1033 PT Last Visit PT Received [...] Home with 24 hr supervision/assist onver robert Sigala, Provider Unknown - 04/06/2014 4:31 PM PST Nurse Progress Note by Shayne Chen RN at 04/06/14 1631 Author: Shayne Chen RN Service: (none) Author Type: Registered Nurse Filed: 04/06/14 1646 Date of Service: 04/06/14 1631 Status: Signed Bleach Boiler Filler: Shayne Chen RN (Registered Nurse) Discussed POC with patient and patient's spouse who state they wish for patient to be disch arged to home on Thursday04/07/14 in lieu of [facility]/SNF. Patient spouse is requesting home PT as well as a lumbar xray prior to discharge home on Thursday. Note left for Dr. Cabrera. SHAYNE CHEN RN 04/06/2014 4:46 PM Min Uribe, PT - 04/06/2014 2:50 PM PSTFormatting of this note might be different from the o riginal. Therapy Progress Note by Min Choe PT at 04/06/14 1450 Author: Min Choe PT Service: (none) Author Type: Physical Therapist Filed: 04/06/14 4581 Date of Service: 04/06/14 1450 Status: Signed Bleach Boiler Filler: Min Choe PT (Physical Therapist) 04/06/14 1450 [...] bed with HOB elevated and call light wtithin reach. RN aware. bed alarm on. vital [...] Type: Advanced Registered Charanjit simons Practitioner Filed: 04/06/141413 Date of Service: 04/06/141411 Status: Signed Bleach Boiler Filler: RITA Rubio (Advanced Registered Nurse Practitioner) [facility] Service: Orthopedic Surgery Note Doing well. Leg [...] (none) Author Type: Physical Therapist Filed: 04/06/14 0891 Date of Service: 04/06/141124 Status: Signed Bleach Boiler Filler: Min Choe PT (Physical Therapist) 04/06/14 1125 [...] Note by Noreen Sharma RN at 04/05/14 1541 Author: Noreen Sharma RN Service: (none) Author Type: Registered Nurse Filed: 04/05/14 1543 Date of Service: 04/05/14 154 Status: Signed Bleach Boiler Filler: Noreen Sharma RN (Registered Nurse) Patient requesting pain medication from [employer]. When returning to the room with the medicatio n the patient was sleeping soundly. Medication held at this time. Dawna Taylor ARNP - 04/05/2014 2:34 PM PSTFormatting of this note might be different from the mabel ginal. Progress Notes by RITA Rubio at 04/05/14 1434 Author: RITA Rubio Service: Orthopedic Surgery Author Type: Advanced Registered N urse Practitioner Filed: 04/05/14 1436 Date of Service: 04/05/14 1434 Status: Signed Bleach Boiler Filler: RITA Rubio (Advanced Registered Nurse Practitioner) [facility] Service: Orthopedic Surgery Progress Note Hospital [...] Notes by Archana Adams RD at 04/05/14 3297 Author: Archana Adams RD Service: (none) Author Type: Registered Dietitian Filed: 04/05/14 8885 Date of Service: 04/05/14 0771 Status: Signed Bleach Boiler Filler: Archana Adams RD (Registered Dietitian) Nutrition Assessment and Recommendations Assessment: Pt triggered for length of stay. BMI: 30.5 kg/m2, (class I obesity) IBW: 50 kg (152%) ABW: 56.4 kg Food and nutrition-related hx: Pt reports that she does not follow any special diets at [facility], although she has been instructed to follow a low cholesterol, low sodium diet. Appetite w as very good BILLING COLLECTIONS SPECIALIST. Current intake: Pt reports intake is currently [...] brought in for pt. Estimated needs: Kcal: 1868-2459 kcal (25-30 kcal/kg adj BW) Protein: 56.4- [...] [address] onver robert Transaction, Provider Unknown - 04/05/2014 2:06 PM PST Nurse Progress Note by Noreen Sharma RN at 04/05/141405 Author: Noreen Sharma RN Service: (none) Author Type: Registered Nurse Filed: 04/05/14 1421 Date of Service: 04/05/141405 Status: Signed Bleach Boiler Filler: Noreen Sharma RN (Registered Nurse) Patient's significant other is vocal about not wanting patient to go to a SNF. He is reque sting to appeal discharge to SNF. AMANDA Drake aware. Patient also lost dentures 2 days ago. Kitchen, linen services, risk management, and Astrid (surgical floorworker distributor) all notified. onver robert Transaction, Provider Unknown - 04/05/2014 2:04 PM PST Therapy Progress Note by Denver Arias PTA at 04/05/14 140 Author: Denver Arias PTA Service: (none) Author Type: Television Inspector Filed: 04/05/14 1423 Date of Service: 04/05/141403 Status: Signed Bleach Boiler Filler: Denver Arias PTA (Television Inspector) 04/05/14 140 PT Last Visit PT Received On 04/05/14 [...] (none) Author Type: Occupational Therapist Filed: 04/05/14 1636 Date of Service: 04/05/14 1350 Status: Signed Bleach Boiler Filler: BRITTANY Walters (Mathematical Scientist) 04/05/14 1350 OT Last Visit OT Received On 04/05/14 Assistance Required 1 person Boat Fueler Needed No Family/Caregiver Present Yes Precautions Spinal Precautions Lumbar Other Precautions fall precaution Other Comments Comments pt supine with HOB slightly elevated. pt willing to discuss dressing tasks while i n bed. Able to recall 2/3 precautions. demonstrated use of circuit walker/sock aide and shoe horn f or LE dressing tasks. LE Dressing LE Dressing Yes LE Dressing Adaptive Equipment Cattle Manager;Sock aide;Shoe horn LE Dressing Where Assessed Bed level LE Dressing Comments pt to want to just discuss A/E usage for LE dressing task. pt to benef it from practicing ADL tasks with use of A/E. Activity Tolerance Activity Tolerance Patient limited by fatigue Safety Devices Safety Devices in Place Yes Type of Devices Call lite in place 04/05/14 135 Plan Treatment Interventions (per OT POC) Progress Slow progress, decreased activity tolerance Requires OT Follow Up Yes Recommendation Recommendation Short-term skilled OT Equipment Recommended Cattle Manager;Sock aid;Sponge long handled Education Completed: Education Topic: ADL, A/E Completed with: Patient, Spouse Completed by: Verbal Education, Demonstration Response to Education: Stated Understanding, Reinforcement Necessary for Education Unde rstanding Occupational Therapy Plan: Continue OT treatment per POC onver robert Transaction, Provider Unknown - 04/05/2014 11:15 AM PST Case Management by CLAIRE Lee at 04/05/14 1115 Author: CLAIRE Lee Service: (none) Author Type: Machine Molder Squeeze Filed: 04/05/14 1133 Date of Service: 04/05/141114 Status: Addendum Bleach Boiler Filler: CLAIRE Lee (Machine Molder Squeeze) Related Notes: Original Note by CLAIRE Lee (Machine Molder Squeeze) filed at 04/05/14 1117 CM met pt for discharge planning. CM educated her regarding SNF placement for rehab and pro vided pt with a list of local SNFs. Pt agreed to SNF placement and requested [facility]. CM fax ed pt's info to [facility] and spoke with their electronic funds transfer coordinator who agreed to accept pt upon discharge. CM informed pt & her significant other who was upset that pt's false teeth a re missing and stated pt is not going anywhere until she has teeth. KRYSTAL phoned [facility]'s Risk Management Dept and spoke with Bryant who stated the Surgical Vamp Creaser will need to be no tified. CM notified Astrid the Surgical Vamp Creaser and filed a QRR. KRYSTAL also notified pt's RN . Pt had no other resource concerns at this time. Discharge Plan: SNF Colin Jarad SOSA onver robert Martinezaction, Provider Unknown - 04/05/2014 10:24 AM PST Therapy Progress Note by Denver Arias PTA at 04/05/14 1024 Author: Denver Arias PTA Service: (none) Author Type: Television Inspector Filed: 04/05/14 1030 Date of Service: 04/05/14 1024 Status: Signed Bleach Boiler Filler: Denver Arias PTA (Television Inspector) 04/05/14 1024 PT Last Visit PT Received [...] Recommendation Recommendations Home with 24 hr supervision/assist onnarendra Martinezaction, Provider Unknown - 04/04/2014 9:43 PM PST Progress Notes by Leandra Rain RRT at 04/04/142142 Author: Leandra Rain RRT Service: (none) Author Type: Registered Respiratory Therapist Filed: 04/04/142143 Date of Service: 04/04/142142 Status: Signed Bleach Boiler Filler: Leandra Rain RRT (Registered Respiratory Therapist) Please change Mrs. Carmona Albuterol nebs to PRN, Thanks Respiratory Therapy onver robert Transaction, Provider Unknown - 04/04/2014 2:12 PM PST Therapy Progress Note by Denver Arias PTA at 04/04/141411 Author: Denver Arias PTA Service: (none) Author Type: Television Inspector Filed: 04/04/141418 Date of Service: 04/04/141411 Status: Signed Bleach Boiler Filler: Denver Arias PTA (Television Inspector) 04/04/14 141 PT Last Visit PT Received On 04/04/14 [...] Author: CLAIRE Lee Service: (none) Author Type: Machine Molder Squeeze Filed: 04/04/14 1317 Date of Service: 04/04/14 1316 Status: Signed Bleach Boiler Filler: CLAIRE Lee (Machine Molder Squeeze) Pt has an IPR consult pending. Pt has no other discharge needs at this time. CM will contin ue to follow as needed. Colin Tonicorey IMAGING MANAGER onver robert Transaction, Provider Unknown - 04/04/2014 10:23 AM PST Therapy Progress Note by Denver Arias PTA at 04/04/14 1023 Author: Denver Arias PTA Service: (none) Author Type: Television Inspector Filed: 04/04/14 1025 Date of Service: 04/04/14 1023 Status: Signed Bleach Boiler Filler: Denver Arias PTA (Television Inspector) 04/04/14 1023 PT Last Visit PT Received [...] Progress Notes by Silviano Cabrera MD at 04/04/14701 Author: Silviano Cabrera MD Service: Orthopedic Surgery Author Type: Physician Filed: 04/04/14 0829 Date of Service: 04/04/14701 Status: Signed Bleach Boiler Filler: Silviano Cabrera MD (Physician) [facility] Service: Orthopedic Surgery Progress Note Hospital [...] Service: (none) Author Type: Registered Nurse Filed: 04/04/14237 Date of Service: 04/04/14234 Status: Signed Bleach Boiler Filler: Catia Andres RN (Registered Nurse) Patient talking [...] Service: Orthopedic Surgery Author Type: Physician Filed: 04/04/1427 Date of Service: 04/03/141799 Status: Signed Bleach Boiler Filler: Silviano Cabrera MD (Physician) [facility] Service: Orthopedic Surgery Progress Note Hospital [...] Progress Note by May Alvarez RN at 04/03/141746 Author: May Alvarez RN Service: (none) Author Type: Registered Nurse Filed: 04/03/14 5617 Date of Service: 04/03/141746 Status: Signed Bleach Boiler Filler: May Alvarez RN (Registered Nurse) Patient attempting [...] Note by Denver Arias PTA at 04/03/14 3967 Author: Denver Arias PTA Service: (none) Author Type: Television Inspector Filed: 04/03/14 1401 Date of Service: 04/03/14 6237 Status: Signed Bleach Boiler Filler: Denver Arias PTA (Television Inspector) 04/03/14 1357 PT Last Visit PT Received [...] Progress Notes by Antonio Vides at 04/03/14 3961 Author: Antonio Vides Service: (none) Author Type: Bid Analyst Filed: 04/03/14 1257 Date of Service: 04/03/14 0175 Status: Signed Bleach Boiler Filler: Antonio Vides (Bid Analyst) Stopped in for care, pt lying on bed was not willing to interact with the pt. Loan Counselor will stop by another time. chaplain Jane programming internship onver robert Transaction, Provider Unknown - 04/03/2014 11:38 AM PST Therapy Progress Note by BLAIR Chang at 04/03/14 1138 Author: BLAIR Chang Service: (none) Author Type: Occupational Therapist Filed: 04/03/14 0825 Date of Service: 04/03/141137 Status: Signed Bleach Boiler Filler: BLAIR Chang (Occupational Therapist) 04/03/14 1138 OT Last Visit OT Received On 04/03/14 Reason for Treatment Spinal surgery Requires OT Follow Up Yes Assistance Required 1 person Boat Fueler Needed No Family/Caregiver Present No Precautions Spinal [...] Reinforcement Necessary for Education Under standing 04/03/14 785 Plan Treatment Interventions (Per OT POC ) New Goal: Pt to participate in cog assessment and/or home safety questionnaire for safety w /ADLs Progress Slow progress, decreased activity tolerance;Slow progress, cognitive deficits OT Frequency QD;5x/wk Requires OT Follow Up Yes Recommendation Recommendation Short-term skilled OT; 24/ supervision if cognition does not improve. (SNF) Equipment Recommended Sponge long handled;Sock aid;Cattle Manager onver robert Transaction, Provider Unknown - 04/03/2014 9:50 AM PST Therapy Progress Note by Denver Arias PTA at 04/03/1450 Author: Denver Arias PTA Service: (none) Author Type: Television Inspector Filed: 04/03/1453 Date of Service: 04/03/14949 Status: Signed Bleach Boiler Filler: Denver Arias PTA (Television Inspector) 04/03/14949 PT Last Visit PT Received On 04/03/14 Reason for Treatment Spinal surgery Requires PT Follow Up On hold Other Comments Comments pt too lethargic to actively participate onver robert Transaction, Provider Unknown - 04/02/2014 10:05 PM PST Nurse Progress Note by Deborah Johnson RN at 04/02/142204 Author: Deborah Johnson RN Service: (none) Author Type: Registered Nurse Filed: 04/03/14 0045 Date of Service: 04/02/142204 Status: Signed Bleach Boiler Filler: Deborah Johnson RN (Registered Nurse) Pt found sitting on the edge of her bed confused. Pt removed IV. Reoriented pt. Vitals stab le, dressings remain CDI, hemovac in place. Will continue to monitor. onver robert Transaction, Provider Unknown - 04/02/2014 2:19 PM PST Progress Notes by Winsome Lovett RN at 04/02/14 7899 Author: Winsome Lovett RN Service: (none) Author Type: Registered Nurse Filed: 04/02/14 1422 Date of Service: 04/02/14 0199 Status: Signed Bleach Boiler Filler: Winsome Lovett, RN (Registered Nurse) Pt very lethargic today, [...] HV drain. CSM check remain WNL. Sheyla Morris PT - 04/02/2014 1:20 PM PST Therapy Progress Note by Sheyla Brewster PT at 04/02/14 1320 Author: Sheyla Brewster PT Service: (none) Author Type: Physical Therapist Filed: 04/02/14 1340 Date of Service: 04/02/14 1320 Status: Signed Bleach Boiler Filler: Sheyla Brewster PT (Physical Therapist) 04/02/14 1300 [...] Therapist Filed: 04/02/14 1256 Date of Service: 04/02/141243 Status: Signed Bleach Boiler Filler: BLAIR Chang (Occupational Therapist) 04/02/14 1244 OT Last Visit OT Received On 04/02/14 Reason for Treatment Spinal surgery Requires OT Follow Up Yes Assistance Required 1 person Boat Fueler Needed No Family/Caregiver Present No Precautions Spinal [...] skilled OT Equipment Recommended Sponge long handled;Sock aid;Cattle Manager Sheyla Morris PT - 04/02/2014 9:05 AM PST Therapy Progress Note by Sheyla Brewster PT at 04/02/14 09 Author: Sheyla Brewster PT Service: (none) Author Type: Physical Therapist Filed: 04/02/14 0947 Date of Service: 04/02/14904 Status: Signed Bleach Boiler Filler: Sheyla Brewster PT (Physical Therapist) 04/02/14 0900 [...] (none) Author Type: Physical Therapist Filed: 04/02/14 0853 Date of Service: 04/02/14821 Status: Signed Bleach Boiler Filler: Sheyla Brewster PT (Physical Therapist) 04/02/14 0800 [...] Notes by Silviano Cabrera MD at 04/02/14 0701 Author: Silviano Cabrera MD Service: Orthopedic Surgery Author Type: Physician Filed: 04/04/14 0826 Date of Service: 04/02/14700 Status: Signed Bleach Boiler Filler: Silviano Cabrera MD (Physician) [facility] Service: Orthopedic Surgery Progress Note Hospital [...] Note by Giovani Caceres PT at 04/01/14 1424 Author: Giovani Caceres PT Service: (none) Author Type: Physical Therapist Filed: 04/01/141423 Date of Service: 04/01/14 1424 Status: Signed Bleach Boiler Filler: Giovani Caceres PT (Physical Therapist) 04/01/14 1357 [...] to prior living situation Nikita Caceres PT onver robert Transaction, Provider Unknown - 04/01/2014 10:53 AM PDT Therapy Progress Note by Giovani Caceres PT at 04/01/14 1053 Author: Giovani Caceres PT Service: (none) Author Type: Physical Therapist Filed: 04/01/14 1053 Date of Service: 04/01/14 1053 Status: Signed Bleach Boiler Filler: Giovani Caceres PT (Physical Therapist) 04/01/14 1021 [...] griggs. Progress Notes by RITA Rubio at 04/01/14913 Author: RITA Rubio Service: Orthopedic Surgery Author Type: Advanced Registered N sophye Practitioner Filed: 04/01/14916 Date of Service: 04/01/14913 Status: Signed Bleach Boiler Filler: RITA Rubio (Advanced Registered Nurse Practitioner) [facility] Service: Orthopedic Surgery Progress Note Hospital [...] Infusions sodium chloride 110 mL/hr at 04/01/14 0517 PRN Medications acetaminophen, acetaminophen, bisacodyl, calcium carbonate, [...] SpO2: [92 %-100 %] 96 % (04/01 750) FiO2 : [84 %-97 %] 95 % [...] Notes by Kari Mckeon RPH at 03/31/14 0867 Author: Kari Mckeon RPH Service: (none) Author Type: Pharmacist Filed: 03/31/14 2244 Date of Service: 03/31/141358 Status: Signed Bleach Boiler Filler: Kari Mckeon RPH (Pharmacist) >> KARI MCKEON 03/31/2014 13:59 Zosyn Extended Infusion Initial Consult Thea Colette Carmona 68 y.o. female Estimated Creatinine Clearance: 56 mL/min (by C-G formula based on Cr of 0.87). NEUTROPHILS ABS Date Value Range Status 03/30/2014 9.8* 1.9 - 7.4 K/uL Final Testing performed at [facility], [address] [place] [address] CREATININE Date Value Range Status 03/30/2014 0.87 0.50 - 1.00 mg/dL Final Testing performed at [facility], [address] [place] [address] Zosyn extended Infusion loading and maintenance dose guidelines Loading Dose 4.5 g IV Over 30 minutes CrCl >20 ml/min 3.375 g IV Q 8 hours Over 4 hours CrCl 10-20 ml/min 3.375 g IV Q 12 hours Over 4 hours CrCl <10, HD, PD Follow [facility] Dosage Adjustments in Renal Dysfunction Protocol Plan per pharmacy protocol: Zosyn 4.5 g IVPB Loading dose over 30 minutes followed by Zosyn 3.375 g IVPB extended infusion over 4 hours Q 8 hours Pharmacy will continue monitoring patient for appropriate dosing per renal function. 03/31/2014 1:58 PM Pharmacist: KARI MCKEON Connarendra Sigala, Provider Unknown - 03/31/2014 10:43 AM PDT Therapy Progress Note by Denver Arias PTA at 03/31/14 1043 Author: Denver Arias PTA Service: (none) Author Type: Television Inspector Filed: 03/31/14 1044 Date of Service: 03/31/14 104 Status: Signed Bleach Boiler Filler: Denver Arias PTA (Television Inspector) 03/31/14 1043 PT Last Visit PT Received On 03/31/14 Reason for Treatment Spinal surgery Requires PT Follow Up On hold Other Comments Comments pt reporting having a very difficult night and is scheduled for stage 2 of surgery will need to be reassessed post surgery Otilia Sigala, Provider Unknown - 03/30/2014 2:44 PM PDT Therapy Progress Note by Denver Arias PTA at 03/30/14 1444 Author: Denver Arias PTA Service: (none) Author Type: Television Inspector Filed: 03/30/14 1446 Date of Service: 03/30/14 1444 Status: Signed Bleach Boiler Filler: Denver Arias PTA (Television Inspector) 03/30/14 1444 PT Last Visit PT Received [...] Denver Arias PTA Service: (none) Author Type: Television Inspector Filed: 03/30/14 1118 Date of Service: 03/30/14 1116 Status: Signed Bleach Boiler Filler: Denver Arias PTA (Television Inspector) 03/30/14 1116 PT Last Visit PT Received On 03/30/14 [...] situation onver robert Sigala, Provider Unknown - 03/30/2014 9:52 AM PDT Case Management by CLAIRE Lee at 03/30/1452 Author: CLAIRE Lee Service: (none) Author Type: Machine Molder Squeeze Filed: 03/30/1453 Date of Service: 03/30/14951 Status: Signed Bleach Boiler Filler: CLAIRE Lee (Machine Molder Squeeze) CM met with pt for discharge planning. [...] llow as needed. Discharge Plan: Home. Colin Jarad [facility] 03/30/14 0951 Discharge Planning Evaluation Admitting [...] ginal. Progress Notes by RITA Rubio at 03/30/14755 Author: RITA Rubio Service: Orthopedic Surgery Author Type: Advanced Registered N kristyn Practitioner Filed: 03/30/14756 Date of Service: 03/30/14755 Status: Signed Bleach Boiler Filler: RITA Rubio (Advanced Registered Nurse Practitioner) [facility] Service: Orthopedic Surgery Progress Note Hospital [...] : [45 %-90 %] 90 % (03/29 1123) Incision c/d/i. Good HF/Q/EHL/DF and PF while [...] Therapy Progress Note by BLAIR Raymundo at 03/30/14 07 Author: BLAIR Raymundo Service: (none) Author Type: Occupational Therapist Filed: 03/30/14 1009 Date of Service: 03/30/14706 Status: Signed Bleach Boiler Filler: BLAIR Raymundo (Occupational Therapist) 03/30/14706 Precautions Spinal Precautions Lumbar;TLSO on when upright (fusion L4-5) Other Precautions fall risk Home Environment Bathroom Equipment Grab bars in shower/bath;Hand-held shower head;Tub transfer bench;Shower chair;Raised toilet seat Additional Comments Refer to PT note for PLOF Prior Function Level of [place] Modified independent with functional mobility;Assist with ADLs;Assist [...] ntaining back precautions LE Dressing Adaptive Equipment Cattle Manager;Sho[place]orn long-handled;Sock aid Arm Goals Pt Will Perform AROM B UE;1 set;10 reps;With good activity tolerance 03/30/14 0707 ADL Goals Pt Will Perform Grooming Standing at sink;With supervision;Maintaining back precautions Pt Will Perform LE Dressing At edge of bed;In chair;Supervision;With adaptive equipment;Delores ntaining back precautions LE Dressing Adaptive Equipment Cattle Manager;Shoehorn long-handled;Sock aid Arm Goals Pt Will Perform [...] Pharmacist Filed: 03/29/14 1441 Date of Service: 03/29/14 1441 Status: Signed Bleach Boiler Filler: Hugo Dsouza RPH (Pharmacist) Pharmacy will renal dose as needed once labs are available. onver robert Transaction, Provider Unknown - 03/29/2014 2:20 PM PDT Therapy Progress Note by Randee Cage PT at 03/29/14 1420 Author: Randee Cage PT Service: (none) Author Type: Physical Therapist Filed: 03/29/14 1553 Date of Service: 03/29/141419 Status: Signed Bleach Boiler Filler: Randee Cage PT (Physical Therapist) 03/29/14 1420 [...] walker Home Equipment Walker 4 wheeled;Cane single point;Cattle Manager;Chair lift;Bed hospital Additional Comments Lives with s.o., [...] outpt PT prn) Prior Function Level of [place] Assist with ADLs;Assist with functional mobility;Modified independent [...] Note by Kari Mccarty RN at 03/29/14 7598 Author: Kari Mccarty RN Service: Anesthesiology Author Type: Registered Nurse Filed: 03/29/14 1239 Date of Service: 03/29/14 123 Status: Signed Bleach Boiler Filler: Kari Mccarty RN (Registered Nurse) Pt difficult pain control due to chronic narcotic use. Talked with DR Cabrera restarted her ox ycontin. docume nted in this encounter H&P Notes Silviano Cabrera Jr., MD - 03/31/2014 11:05 AM PDT Interval H&P Note by Silviano Cabrera MD at 03/31/14 6458 Author: Silviano Cabrera MD Service: Orthopedic Surgery Author Type: Physician Filed: 03/31/142 Date of Service: 03/31/141104 Status: Signed Bleach Boiler Filler: Silviano Cabrera MD (Physician) [facility] Service: Orthopedic Surgery Pre-Operative History & Physical Interval Update PT. S/P ANTERIORL4-S1 lumbar decompression and fusion. Ambulating with improved leg and ba ck pain with inherent stability and decompression. Pt. Will need and we have once again dis cussed in detail the need for posterior stabilization with instrumentation, fusion, decompre ssion. The patient is aware and is thus far pleased with the improvement to date. We will plan for the above for 2nd stage L4-S1 fusion. Informed consent obtained and updated. NVI distally, pulses equal and strong BLE Incision c/d/i Nauseated with minimal gas currently. SILVIANO CABRERA MD 03/31/2014 *CORE MEASURES REMINDER: If the patient has a known or suspected infection prior to surger y, please add diagnosis to the problem list (consider: Infection 136.9). Source Note Author: RITA Rubio Service: Orthopedic Surgery Author Type: Advanced Registered N urse Practitioner Filed: 03/28/14 3217 Date of Service: 03/28/14 4177 Status: Signed Bleach Boiler Filler: RITA Rubio (Advanced Registered Nurse Practitioner) [facility] Service: Orthopedic Surgery Note Planned Procedure: ALIF L4-S1 fusion CC: Low back pain with bilateral leg pain HPI: Mrs. Carmona is a 68 y/o female who has been quite miserable with regards to his low back a nd leg pain. She has tried numerous conservative efforts including but not limited to PT, pa in management, lumbar epidurals all providing minimal relief from her pain. Ambulating any m ore than several feet significantly brings on the pain. Past Medical History Diagnosis Date Anemia GERD (gastroesophageal reflux disease) Hypertension Arthritis Hyperlipidemia Depression Other chronic pain Joint pain COPD (chronic obstructive pulmonary disease) Thyroid disease Unspecified visual disturbance glasses Stroke 2004 RA (rheumatoid arthritis) Past Surgical History Procedure Laterality Date Cholecystectomy 2000 Bladder suspension 2000 Finger surgery 12-02-11 Thumb Shoulder surgery 12/2011 Lumbar epidural injection 05-27-12 Right L5 TFESI target Right S1 Caudal block 07-15-12 Caudal w/ cath target Right L5, S1 Unlisted procedure arthroscopy Colonoscopy Cataract extraction Cervical fusion 01/19/2013 Procedure: CERVICAL - DISC & FUSION - ANTERIOR; Surgeon: Silviano Cabrera MD; Location: [facility] MAIN OR; Service: Orthopedics; Laterality: N/A; C4-6 Hysterectomy 1974 ovaries removed Eye surgery Hardware removal Spine surgery Cervical fusion 04/06/2013 Procedure: CERVICAL - FUSION - POSTERIOR; Surgeon: Silviano Cabrera MD; Location: [facility] MAIN OR; Service: Ortho/Spine; Laterality: N/A; C4-6 & decompression No current facility-administered medications for this encounter. Current outpatient prescriptions:albuterol (PROVENTIL) (2.5 MG/3ML) 0.083% nebulizer soluti on, Take 2.5 mg by nebulization 3 (three) times daily. History of smoking, COPD, and asthma, Disp: , Rfl: , ; aspirin 81 MG tablet, Take 81 mg by mouth daily. , Disp: , Rfl: , ; roderick cium carbonate (TUMS) 500 MG chewable tablet, Take 2 tablets by mouth every 6 (six) hours as needed., Disp: 60 tablet, Rfl: 1, Cholecalciferol (VITAMIN D) 2000 UNITS CAPS, Take 1 capsule by mouth daily. , Disp: , Rfl: , ; cloNIDine (CATAPRES) 0.1 MG tablet, Take 0.1 mg by mouth 2 (two) times daily., Disp: , Rfl: , ; diazepam (VALIUM) 10 MG tablet, Take 10 mg by mouth every 6 (six) hours as needed ., Disp: , Rfl: , ; docusate sodium 100 MG CAPS, Take 100 mg by mouth 2 (two) times daily., Disp: 60 capsule, Rfl: 1, Ferrous Sulfate (IRON) 325 (65 FE) MG TABS, Take 1 tablet by mouth daily., Disp: , Rfl: , ; folic acid (FOLVITE) 1 MG tablet, Take 1 mg by mouth daily., Disp: , Rfl: , ; HYDROmorpho ne (DILAUDID) 4 MG tablet, Take 4 mg by mouth every 3 (three) hours as needed for Pain., Dis p: , Rfl: , ; levothyroxine (SYNTHROID, LEVOTHROID) 75 MCG tablet, Take 1 tablet by mouth d aily., Disp: , Rfl: , lisinopril (PRINIVIL,ZESTRIL) 10 MG tablet, Take 1 tablet by mouth daily., Disp: , Rfl: , ; Magnesium 100 MG CAPS, Take 1 tablet by mouth daily., Disp: , Rfl: , ; methotrexate 2.5 M G tablet, Take 25 tablets by mouth once a week. Takes on Thursday, Disp: , Rfl: , ; morphin e (MS CONTIN) 30 MG 12 hr tablet, Take 1 tablet by mouth every 12 (twelve) hours., Disp: 60 tablet, Rfl: 0, omeprazole (PRILOSEC) 20 MG capsule, Take 1 capsule by mouth 2 (two) times daily., Disp: , Rfl: , ; PLAVIX 75 MG tablet, Take 1 tablet by mouth daily., Disp: , Rfl: , ; predniSONE ( DELTASONE) 5 MG tablet, Take 1 tablet by mouth 2 (two) times daily., Disp: , Rfl: , ; senna (SENOKOT) 8.6 MG tablet, Take 2 tablets by mouth 2 (two) times daily., Disp: 60 tablet, Rfl : 1, simvastatin (ZOCOR) 40 MG tablet, Take 1 tablet by mouth daily., Disp: , Rfl: , ; venlafax ine (EFFEXOR-XR) 75 MG 24 hr capsule, Take 1 capsule by mouth daily., Disp: , Rfl: , No Known Allergies Family History Problem Relation Age of Onset Cancer Father PE: 69-year-old female, well-developed, well-nourished female HEENT: NT/AT Chest: CTA A&P CV: RRR Abdomen: soft Lumbar: She ambulates with a forward-biased gait with the use of a cane. She has significa nt tenderness to palpation at the L4-5 and L5-S1 region where straight leg raise was negativ e today. She is able to heel-to-toe walk, although she has more difficulty heel walk rather than toe walk. Reflex: unequivocal bilateral patella and achilles without clonus. Assessment: Lumbar spondylolisthesis L4-5 and L5-S1 Lumbar stenosis L4-S1 Lumbar radiculopathy Plan: Mrs. Carmona has exhausted all conservative efforts as above. Recommendation is to stabiliz e the unstable spondylolisthesis at L4-5 and L5-S1 anteriorly. The risks of surgery was d/w patient including but notlimited to infection, stroke, , bleeding, DVT, dural tear, abd ominal perforation and among others. All patient's question were answered in their entirety and would like to proceed with surgery. Patient is well aware Dr. Restrepo, Vascular Surgeon w ill be helping with the anterior approach. Informed consent was obtained and we will proceed as planned. RITA MONROE 03/28/2014 Silviano Pearl Jr, MD - 03/29/2014 7:09 AM PDT Interval H&P Note by Silviano Cabrera MD at 03/29/14708 Author: Silviano Cabrera MD Service: Orthopedic Surgery Author Type: Physician Filed: 03/29/14711 Date of Service: 03/29/14708 Status: Signed Bleach Boiler Filler: Silviano Cabrera MD (Physician) [facility] Service: Orthopedic Surgery Pre-Operative History & Physical Interval Update Discussion once again carried out with regards to the L4-5L5-S1 spondylolisthesis. Initia l anterior approach will be utilized and placement of interbodies at L4-5-S1. We will then have the patient mobilize and assess how the patient has had improvement with regards to ant erior fusion and then this will help determine the extent to which we will have to address t he posterior aspect with regards to extent of decompression etc.. The patient and significan t other are amenable. We will proceed with L4-5S1 ALIF today, with admission and interval as sesment. There have been no significant clinical changes since the completion of the above H&P. SILVIANO CABRERA MD 03/29/2014 *CORE MEASURES REMINDER: If the patient has a known or suspected infection prior to surger y, please add diagnosis to the problem list (consider: Infection 136.9). Source Note Author: RITA Rubio Service: Orthopedic Surgery Author Type: Advanced Registered N kristyn Practitioner Filed: 03/28/14 7320 Date of Service: 03/28/14 5416 Status: Signed Bleach Boiler Filler: RITA Rubio (Advanced Registered Nurse Practitioner) [facility] Service: Orthopedic Surgery Note Planned Procedure: ALIF L4-S1 fusion CC: Low back pain with bilateral leg pain HPI: Mrs. Carmona is a 68 y/o female who has been quite miserable with regards to his low back a nd leg pain. She has tried numerous conservative efforts including but not limited to PT, pa in management, lumbar epidurals all providing minimal relief from her pain. Ambulating any m ore than several feet significantly brings on the pain. Past Medical History Diagnosis Date Anemia GERD (gastroesophageal reflux disease) Hypertension Arthritis Hyperlipidemia Depression Other chronic pain Joint pain COPD (chronic obstructive pulmonary disease) Thyroid disease Unspecified visual disturbance glasses Stroke 2004 RA (rheumatoid arthritis) Past Surgical History Procedure Laterality Date Cholecystectomy 2000 Bladder suspension 2000 Finger surgery 12-02-11 Thumb Shoulder surgery 12/2011 Lumbar epidural injection 05-27-12 Right L5 TFESI target Right S1 Caudal block 07-15-12 Caudal w/ cath target Right L5, S1 Unlisted procedure arthroscopy Colonoscopy Cataract extraction Cervical fusion 01/19/2013 Procedure: CERVICAL - DISC & FUSION - ANTERIOR; Surgeon: Silviano Cabrera MD; Location: [facility] MAIN OR; Service: Orthopedics; Laterality: N/A; C4-6 Hysterectomy 1974 ovaries removed Eye surgery Hardware removal Spine surgery Cervical fusion 04/06/2013 Procedure: CERVICAL - FUSION - POSTERIOR; Surgeon: Silviano Cabrera MD; Location: [facility] MAIN OR; Service: Ortho/Spine; Laterality: N/A; C4-6 & decompression No current facility-administered medications for this encounter. Current outpatient prescriptions:albuterol (PROVENTIL) (2.5 MG/3ML) 0.083% nebulizer soluti on, Take 2.5 mg by nebulization 3 (three) times daily. History of smoking, COPD, and asthma, Disp: , Rfl: , ; aspirin 81 MG tablet, Take 81 mg by mouth daily. , Disp: , Rfl: , ; roderick cium carbonate (TUMS) 500 MG chewable tablet, Take 2 tablets by mouth every 6 (six) hours as needed., Disp: 60 tablet, Rfl: 1, Cholecalciferol (VITAMIN D) 2000 UNITS CAPS, Take 1 capsule by mouth daily. , Disp: , Rfl: , ; cloNIDine (CATAPRES) 0.1 MG tablet, Take 0.1 mg by mouth 2 (two) times daily., Disp: , Rfl: , ; diazepam (VALIUM) 10 MG tablet, Take 10 mg by mouth every 6 (six) hours as needed ., Disp: , Rfl: , ; docusate sodium 100 MG CAPS, Take 100 mg by mouth 2 (two) times daily., Disp: 60 capsule, Rfl: 1, Ferrous Sulfate (IRON) 325 (65 FE) MG TABS, Take 1 tablet by mouth daily., Disp: , Rfl: , ; folic acid (FOLVITE) 1 MG tablet, Take 1 mg by mouth daily., Disp: , Rfl: , ; HYDROmorpho ne (DILAUDID) 4 MG tablet, Take 4 mg by mouth every 3 (three) hours as needed for Pain., Dis p: , Rfl: , ; levothyroxine (SYNTHROID, LEVOTHROID) 75 MCG tablet, Take 1 tablet by mouth d aily., Disp: , Rfl: , lisinopril (PRINIVIL,ZESTRIL) 10 MG tablet, Take 1 tablet by mouth daily., Disp: , Rfl: , ; Magnesium 100 MG CAPS, Take 1 tablet by mouth daily., Disp: , Rfl: , ; methotrexate 2.5 M G tablet, Take 25 tablets by mouth once a week. Takes on Thursday, Disp: , Rfl: , ; morphin e (MS CONTIN) 30 MG 12 hr tablet, Take 1 tablet by mouth every 12 (twelve) hours., Disp: 60 tablet, Rfl: 0, omeprazole (PRILOSEC) 20 MG capsule, Take 1 capsule by mouth 2 (two) times daily., Disp: , Rfl: , ; PLAVIX 75 MG tablet, Take 1 tablet by mouth daily., Disp: , Rfl: , ; predniSONE ( DELTASONE) 5 MG tablet, Take 1 tablet by mouth 2 (two) times daily., Disp: , Rfl: , ; senna (SENOKOT) 8.6 MG tablet, Take 2 tablets by mouth 2 (two) times daily., Disp: 60 tablet, Rfl : 1, simvastatin (ZOCOR) 40 MG tablet, Take 1 tablet by mouth daily., Disp: , Rfl: , ; venlafax ine (EFFEXOR-XR) 75 MG 24 hr capsule, Take 1 capsule by mouth daily., Disp: , Rfl: , No Known Allergies Family History Problem Relation Age of Onset Cancer Father PE: 69-year-old female, well-developed, well-nourished female HEENT: NT/AT Chest: CTA A&P CV: RRR Abdomen: soft Lumbar: She ambulates with a forward-biased gait with the use of a cane. She has significa nt tenderness to palpation at the L4-5 and L5-S1 region where straight leg raise was negativ e today. She is able to heel-to-toe walk, although she has more difficulty heel walk rather than toe walk. Reflex: unequivocal bilateral patella and achilles without clonus. Assessment: Lumbar spondylolisthesis L4-5 and L5-S1 Lumbar stenosis L4-S1 Lumbar radiculopathy Plan: Mrs. Carmona has exhausted all conservative efforts as above. Recommendation is to stabiliz e the unstable spondylolisthesis at L4-5 and L5-S1 anteriorly. The risks of surgery was d/w patient including but notlimited to infection, stroke, , bleeding, DVT, dural tear, abd ominal perforation and among others. All patient's question were answered in their entirety and would like to proceed with surgery. Patient is well aware Dr. Restrepo, Vascular Surgeon w ill be helping with the anterior approach. Informed consent was obtained and we will proceed as planned. RITA MONROE 03/28/2014 lie Stewart MD - 03/29/2014 6:57 AM PDTFormatting of this note might be different from the origi nal. Interval H&P Note by John Stewart MD at 03/29/14 0657 Author: John Stewart MD Service: Vascular Surgery Author Type: Physician Filed: 03/29/14 0658 Date of Service: 03/29/14656 Status: Signed Bleach Boiler Filler: John Stewart MD (Physician) [facility] Service: Vascular Surgery Pre-Operative History & Physical Interval Update There have been no significant clinical changes since the completion of the above H&P. JOHN STEWART MD 03/29/2014 *CORE MEASURES REMINDER: If the patient has a known or suspected infection prior to surger y, please add diagnosis to the problem list (consider: Infection 136.9). Source Note Author: John Stewart MD Service: (none) Author Type: Physician Filed: 03/28/141651 Date of Service: 03/28/141643 Status: Signed Bleach Boiler Filler: John Stewart MD (Physician) [facility] Service: Vascular Surgery Pre-Operative History & Physical DIAGNOSIS: L4-L5, L5-S1 spondylolisthesis, anteroisthesis. Chronic back pain. Degenerative disc disease (DDD). Spinal stenosis, lumbar. Right lower extremity radiated pain. INDICATION: Radiculopathy, lumbar stenosis.DDD. PROCEDURE: L4-L5, L5-S1 anterior approach for lumbar interbody fusion. CHIEF COMPLAINT: Chronic low back pain. History Obtained From: patient, chart review HISTORY OF PRESENT ILLNESS The patient is a 68 y.o. female with significant past medical history of Chronic back pain who presents with Radiculopathy radiated to right lower extremity, lumbar stenosis, spondy lolisthesis of L4-L5, L5-S1 anterolisthesis in need for anterior approach to the spine for l umbar interbody fusion of those levels. The problem had not improved with conservative measu res. REVIEW OF SYSTEMS Review of Systems Chronic low back pain. Pain radiated to right lower extremity. Past Medical History Diagnosis Date Anemia GERD (gastroesophageal reflux disease) Hypertension Arthritis Hyperlipidemia Depression Other chronic pain Joint pain COPD (chronic obstructive pulmonary disease) Thyroid disease Unspecified visual disturbance glasses Stroke 2004 RA (rheumatoid arthritis) Past Surgical History Procedure Laterality Date Cholecystectomy 2000 Bladder suspension 2000 Finger surgery 12-02-11 Thumb Shoulder surgery 12/2011 Lumbar epidural injection 05-27-12 Right L5 TFESI target Right S1 Caudal block 07-15-12 Caudal w/ cath target Right L5, S1 Unlisted procedure arthroscopy Colonoscopy Cataract extraction Cervical fusion 01/19/2013 Procedure: CERVICAL - DISC & FUSION - ANTERIOR; Surgeon: Silviano Cabrera MD; Location: [facility] MAIN OR; Service: Orthopedics; Laterality: N/A; C4-6 Hysterectomy 1974 ovaries removed Eye surgery Hardware removal Spine surgery Cervical fusion 04/06/2013 Procedure: CERVICAL - FUSION - POSTERIOR; Surgeon: Silviano Cabrera MD; Location: [facility] OR; Service: Ortho/Spine; Laterality: N/A; C4-6 & decompression No Known Allergies Current Outpatient Prescriptions on File Prior to Visit Medication Sig Dispense Refill albuterol (PROVENTIL) (2.5 MG/3ML) 0.083% nebulizer solution Take 2.5 mg by nebulizatio n 3 (three) times daily. History of smoking, COPD, and asthma aspirin 81 MG tablet Take 81 mg by mouth daily. calcium carbonate (TUMS) 500 MG chewable tablet Take 2 tablets by mouth every 6 (six) h ours as needed. 60 tablet 1 Cholecalciferol (VITAMIN D) 2000 UNITS CAPS Take 1 capsule by mouth daily. cloNIDine (CATAPRES) 0.1 MG tablet Take 0.1 mg by mouth 2 (two) times daily. diazepam (VALIUM) 10 MG tablet Take 10 mg by mouth every 6 (six) hours as needed. docusate sodium 100 MG CAPS Take 100 mg by mouth 2 (two) times daily. 60 capsule 1 Ferrous Sulfate (IRON) 325 (65 FE) MG TABS Take 1 tablet by mouth daily. folic acid (FOLVITE) 1 MG tablet Take 1 mg by mouth daily. HYDROmorphone (DILAUDID) 4 MG tablet Take 4 mg by mouth every 3 (three) hours as needed for Pain. levothyroxine (SYNTHROID, LEVOTHROID) 75 MCG tablet Take 1 tablet by mouth daily. lisinopril (PRINIVIL,ZESTRIL) 10 MG tablet Take 1 tablet by mouth daily. Magnesium 100 MG CAPS Take 1 tablet by mouth daily. methotrexate 2.5 MG tablet Take 25 tablets by mouth once a week. Takes on Thursday morphine (MS CONTIN) 30 MG 12 hr tablet Take 1 tablet by mouth every 12 (twelve) hours. 60 tablet 0 omeprazole (PRILOSEC) 20 MG capsule Take 1 capsule by mouth 2 (two) times daily. PLAVIX 75 MG tablet Take 1 tablet by mouth daily. predniSONE (DELTASONE) 5 MG tablet Take 1 tablet by mouth 2 (two) times daily. senna (SENOKOT) 8.6 MG tablet Take 2 tablets by mouth 2 (two) times daily. 60 tablet 1 simvastatin (ZOCOR) 40 MG tablet Take 1 tablet by mouth daily. venlafaxine (EFFEXOR-XR) 75 MG 24 hr capsule Take 1 capsule by mouth daily. No current facility-administered medications on file prior to visit. Family History Problem Relation Age of Onset Cancer Father History Social History Marital Status: Spouse Name: N/A Number of Children: N/A Years of Education: N/A Occupational History Not on file. Social History Main Topics Smoking status: Former Smoker -- 1.00 packs/day for 58 years Smokeless tobacco: Never Used Comment: johnny July 2011 Alcohol Use: No Drug Use: No Sexually Active: Not on file Other Topics Concern Not on file Social History Narrative PHYSICAL EXAM Vital Signs: There were no vitals taken for this visit. Physical Exam 68 y.o. year old female, well-nourished, pleasant, in no acute distress. HEAD AND NECK: Normocephalus, extraocular movement intact, no jaundice in the scleraes, nos e not deviated, no hearing aids, or ear drainage, mouth without sores, teeth incomplete. Nec k is supple, neck mobility is normal, trachea is midline, no lymph nodes to palpation, bilat eral carotid artery pulses are palpable, no bruits to auscultation. HEART: Regular rate and rhythm, no murmurs. No thrill or rubs to palpation. LUNGS/CHEST: No chest deformities. No intercostal retractions, no use of accesory muscles, symmetrical lungs field expansion with inspiration, clear to auscultation bilaterally. ABDOMEN: Soft, non tender, non distended, no megalies, ascitis or pulsatile masses. Normal bowel sounds and no bruits to auscultation, bilateral groin pulses are palpable. EXTREMITIES: Bilateral upper extremities without deformities or edema, bilateral brachial, radial pulses are palpable. Bilateral lower extremities without deformities or edema, no hyp erpigmentation or ulcerations. Bilateral popliteal pulses are palpable, DP and PT are palpab le. SKIN: No rashes, no hyperpigmentation or trophic changes. TRAIN INSPECTOR: Alert, oriented x 3, concient, no cranial nerve deficits, no gross deficits. DATA CBC: Lab Results Component Value Date WBC 7.1 03/17/2014 RBC 4.25 03/17/2014 HGB 12.8 03/17/2014 HCT 39.4 03/17/2014 MCV 92.6 03/17/2014 MCH 30.0 03/17/2014 MCHC 32.4 03/17/2014 RDW 67.4* 03/17/2014 PLT 205 03/17/2014 MPV 8.1 03/17/2014 DIFFTYPE AUTOMATED 03/17/2014 BMP: Lab Results Component Value Date NA 138 03/17/2014 K 4.2 03/17/2014 CL 105 03/17/2014 CO2 29 03/17/2014 ANIONGAP 8 03/17/2014 GLUF 98 03/17/2014 BUN 10 03/17/2014 CREATININE 0.85 03/17/2014 BCR 12 03/17/2014 CA 9.6 03/17/2014 EGFR >60 03/17/2014 PT/INR: Lab Results Component Value Date INR 0.9 03/17/2014 PTT: Lab Results Component Value Date APTT 22* 03/17/2014 [APTT} PROBLEM LIST Patient Active Problem List Diagnosis Lumbar radicular pain DDD (degenerative disc disease), lumbar Spondylolisthesis of lumbar region Lumbar stenosis Lumbar facet arthropathy ASSESSMENT & PLAN 1. Patient is a 68 y.o. female with above specified procedure planned. 2. Procedure options, risks, benefits and alternatives reviewed with patient and spouse w ho express(es) understanding. Any and all questions were answered to their satisfaction. I had provided them with a hard copy of the risks and complications also for them to read at [employer]. I explained to them in detail the technicalities of the procedure with diagram s for them to understand. Primary Care Physician: RAVINDRA STEWART MD 03/28/2014 *CORE MEASURES REMINDER: If the patient has a known or suspected infection prior to surger y, please add diagnosis to the problem list (consider: Infection 136.9). John Contreras MD - 03/28/2014 4:44 PM PDTFormatting of this note might be different from the o riginal. H&P (View-Only) by John Stewart MD at 03/28/14 6463 Author: John Stewart MD Service: (none) Author Type: Physician Filed: 03/28/14 5505 Date of Service: 03/28/141643 Status: Signed Bleach Boiler Filler: John Stewart MD (Physician) [facility] Service: Vascular Surgery Pre-Operative History & Physical DIAGNOSIS: L4-L5, L5-S1 spondylolisthesis, anteroisthesis. Chronic back pain. Degenerative disc disease (DDD). Spinal stenosis, lumbar. Right lower extremity radiated pain. INDICATION: Radiculopathy, lumbar stenosis.DDD. PROCEDURE: L4-L5, L5-S1 anterior approach for lumbar interbody fusion. CHIEF COMPLAINT: Chronic low back pain. History Obtained From: patient, chart review HISTORY OF PRESENT ILLNESS The patient is a 68 y.o. female with significant past medical history of Chronic back pain who presents with Radiculopathy radiated to right lower extremity, lumbar stenosis, spondy lolisthesis of L4-L5, L5-S1 anterolisthesis in need for anterior approach to the spine for l umbar interbody fusion of those levels. The problem had not improved with conservative measu res. REVIEW OF SYSTEMS Review of Systems Chronic low back pain. Pain radiated to right lower extremity. Past Medical History Diagnosis Date Anemia GERD (gastroesophageal reflux disease) Hypertension Arthritis Hyperlipidemia Depression Other chronic pain Joint pain COPD (chronic obstructive pulmonary disease) Thyroid disease Unspecified visual disturbance glasses Stroke 2004 RA (rheumatoid arthritis) Past Surgical History Procedure Laterality Date Cholecystectomy 2000 Bladder suspension 2000 Finger surgery 12-02-11 Thumb Shoulder surgery 12/2011 Lumbar epidural injection 05-27-12 Right L5 TFESI target Right S1 Caudal block 07-15-12 Caudal w/ cath target Right L5, S1 Unlisted procedure arthroscopy Colonoscopy Cataract extraction Cervical fusion 01/19/2013 Procedure: CERVICAL - DISC & FUSION - ANTERIOR; Surgeon: Silviano Cabrera MD; Location: [facility] MAIN OR; Service: Orthopedics; Laterality: N/A; C4-6 Hysterectomy 1974 ovaries removed Eye surgery Hardware removal Spine surgery Cervical fusion 04/06/2013 Procedure: CERVICAL - FUSION - POSTERIOR; Surgeon: Silviano Cabrera MD; Location: [facility] MAIN OR; Service: Ortho/Spine; Laterality: N/A; C4-6 & decompression No Known Allergies Current Outpatient Prescriptions on File Prior to Visit Medication Sig Dispense Refill albuterol (PROVENTIL) (2.5 MG/3ML) 0.083% nebulizer solution Take 2.5 mg by nebulizatio n 3 (three) times daily. History of smoking, COPD, and asthma aspirin 81 MG tablet Take 81 mg by mouth daily. calcium carbonate (TUMS) 500 MG chewable tablet Take 2 tablets by mouth every 6 (six) h ours as needed. 60 tablet 1 Cholecalciferol (VITAMIN D) 2000 UNITS CAPS Take 1 capsule by mouth daily. cloNIDine (CATAPRES) 0.1 MG tablet Take 0.1 mg by mouth 2 (two) times daily. diazepam (VALIUM) 10 MG tablet Take 10 mg by mouth every 6 (six) hours as needed. docusate sodium 100 MG CAPS Take 100 mg by mouth 2 (two) times daily. 60 capsule 1 Ferrous Sulfate (IRON) 325 (65 FE) MG TABS Take 1 tablet by mouth daily. folic acid (FOLVITE) 1 MG tablet Take 1 mg by mouth daily. HYDROmorphone (DILAUDID) 4 MG tablet Take 4 mg by mouth every 3 (three) hours as needed for Pain. levothyroxine (SYNTHROID, LEVOTHROID) 75 MCG tablet Take 1 tablet by mouth daily. lisinopril (PRINIVIL,ZESTRIL) 10 MG tablet Take 1 tablet by mouth daily. Magnesium 100 MG CAPS Take 1 tablet by mouth daily. methotrexate 2.5 MG tablet Take 25 tablets by mouth once a week. Takes on Thursday morphine (MS CONTIN) 30 MG 12 hr tablet Take 1 tablet by mouth every 12 (twelve) hours. 60 tablet 0 omeprazole (PRILOSEC) 20 MG capsule Take 1 capsule by mouth 2 (two) times daily. PLAVIX 75 MG tablet Take 1 tablet by mouth daily. predniSONE (DELTASONE) 5 MG tablet Take 1 tablet by mouth 2 (two) times daily. senna (SENOKOT) 8.6 MG tablet Take 2 tablets by mouth 2 (two) times daily. 60 tablet 1 simvastatin (ZOCOR) 40 MG tablet Take 1 tablet by mouth daily. venlafaxine (EFFEXOR-XR) 75 MG 24 hr capsule Take 1 capsule by mouth daily. No current facility-administered medications on file prior to visit. Family History Problem Relation Age of Onset Cancer Father History Social History Marital Status: Spouse Name: N/A Number of Children: N/A Years of Education: N/A Occupational History Not on file. Social History Main Topics Smoking status: Former Smoker -- 1.00 packs/day for 58 years Smokeless tobacco: Never Used Comment: johnny July 2011 Alcohol Use: No Drug Use: No Sexually Active: Not on file Other Topics Concern Not on file Social History Narrative PHYSICAL EXAM Vital Signs: There were no vitals taken for this visit. Physical Exam 68 y.o. year old female, well-nourished, pleasant, in no acute distress. HEAD AND NECK: Normocephalus, extraocular movement intact, no jaundice in the scleraes, nos e not deviated, no hearing aids, or ear drainage, mouth without sores, teeth incomplete. Nec k is supple, neck mobility is normal, trachea is midline, no lymph nodes to palpation, bilat eral carotid artery pulses are palpable, no bruits to auscultation. HEART: Regular rate and rhythm, no murmurs. No thrill or rubs to palpation. LUNGS/CHEST: No chest deformities. No intercostal retractions, no use of accesory muscles, symmetrical lungs field expansion with inspiration, clear to auscultation bilaterally. ABDOMEN: Soft, non tender, non distended, no megalies, ascitis or pulsatile masses. Normal bowel sounds and no bruits to auscultation, bilateral groin pulses are palpable. EXTREMITIES: Bilateral upper extremities without deformities or edema, bilateral brachial, radial pulses are palpable. Bilateral lower extremities without deformities or edema, no hyp erpigmentation or ulcerations. Bilateral popliteal pulses are palpable, DP and PT are palpab le. SKIN: No rashes, no hyperpigmentation or trophic changes. TRAIN INSPECTOR: Alert, oriented x 3, concient, no cranial nerve deficits, no gross deficits. DATA CBC: Lab Results Component Value Date WBC 7.1 03/17/2014 RBC 4.25 03/17/2014 HGB 12.8 03/17/2014 HCT 39.4 03/17/2014 MCV 92.6 03/17/2014 MCH 30.0 03/17/2014 MCHC 32.4 03/17/2014 RDW 67.4* 03/17/2014 PLT 205 03/17/2014 MPV 8.1 03/17/2014 DIFFTYPE AUTOMATED 03/17/2014 BMP: Lab Results Component Value Date NA 138 03/17/2014 K 4.2 03/17/2014 CL 105 03/17/2014 CO2 29 03/17/2014 ANIONGAP 8 03/17/2014 GLUF 98 03/17/2014 BUN 10 03/17/2014 CREATININE 0.85 03/17/2014 BCR 12 03/17/2014 CA 9.6 03/17/2014 EGFR >60 03/17/2014 PT/INR: Lab Results Component Value Date INR 0.9 03/17/2014 PTT: Lab Results Component Value Date APTT 22* 03/17/2014 [APTT} PROBLEM LIST Patient Active Problem List Diagnosis Lumbar radicular pain DDD (degenerative disc disease), lumbar Spondylolisthesis of lumbar region Lumbar stenosis Lumbar facet arthropathy ASSESSMENT & PLAN 1. Patient is a 68 y.o. female with above specified procedure planned. 2. Procedure options, risks, benefits and alternatives reviewed with patient and spouse w ho express(es) understanding. Any and all questions were answered to their satisfaction. I had provided them with a hard copy of the risks and complications also for them to read at [employer]. I explained to them in detail the technicalities of the procedure with diagram s for them to understand. Primary Care Physician: RAVINDRA STEWART MD 03/28/2014 *CORE MEASURES REMINDER: If the patient has a known or suspected infection prior to surger y, please add diagnosis to the problem list (consider: Infection 136.9). Vidal Taylor ARNP - 03/28/2014 1:53 PM PDT H&P by RITA Rubio at 03/28/14 2443 Author: RITA Rubio Service: Orthopedic Surgery Author Type: Advanced Registered N kristyn Practitioner Filed: 03/28/14 5595 Date of Service: 03/28/14 043 Status: Signed Bleach Boiler Filler: RITA Rubio (Advanced Registered Nurse Practitioner) [facility] Service: Orthopedic Surgery Note Planned Procedure: ALIF L4-S1 fusion CC: Low back pain with bilateral leg pain HPI: Mrs. Carmona is a 68 y/o female who has been quite miserable with regards to his low back a nd leg pain. She has tried numerous conservative efforts including but not limited to PT, pa in management, lumbar epidurals all providing minimal relief from her pain. Ambulating any m ore than several feet significantly brings on the pain. Past Medical History Diagnosis Date Anemia GERD (gastroesophageal reflux disease) Hypertension Arthritis Hyperlipidemia Depression Other chronic pain Joint pain COPD (chronic obstructive pulmonary disease) Thyroid disease Unspecified visual disturbance glasses Stroke 2004 RA (rheumatoid arthritis) Past Surgical History Procedure Laterality Date Cholecystectomy 2000 Bladder suspension 2000 Finger surgery 12-02-11 Thumb Shoulder surgery 12/2011 Lumbar epidural injection 05-27-12 Right L5 TFESI target Right S1 Caudal block 07-15-12 Caudal w/ cath target Right L5, S1 Unlisted procedure arthroscopy Colonoscopy Cataract extraction Cervical fusion 01/19/2013 Procedure: CERVICAL - DISC & FUSION - ANTERIOR; Surgeon: Silviano Cabrera MD; Location: [facility] MAIN OR; Service: Orthopedics; Laterality: N/A; C4-6 Hysterectomy 1974 ovaries removed Eye surgery Hardware removal Spine surgery Cervical fusion 04/06/2013 Procedure: CERVICAL - FUSION - POSTERIOR; Surgeon: Silviano Cabrera MD; Location: [facility] MAIN OR; Service: Ortho/Spine; Laterality: N/A; C4-6 & decompression No current facility-administered medications for this encounter. Current outpatient prescriptions:albuterol (PROVENTIL) (2.5 MG/3ML) 0.083% nebulizer soluti on, Take 2.5 mg by nebulization 3 (three) times daily. History of smoking, COPD, and asthma, Disp: , Rfl: , ; aspirin 81 MG tablet, Take 81 mg by mouth daily. , Disp: , Rfl: , ; roderick cium carbonate (TUMS) 500 MG chewable tablet, Take 2 tablets by mouth every 6 (six) hours as needed., Disp: 60 tablet, Rfl: 1, Cholecalciferol (VITAMIN D) 2000 UNITS CAPS, Take 1 capsule by mouth daily. , Disp: , Rfl: , ; cloNIDine (CATAPRES) 0.1 MG tablet, Take 0.1 mg by mouth 2 (two) times daily., Disp: , Rfl: , ; diazepam (VALIUM) 10 MG tablet, Take 10 mg by mouth every 6 (six) hours as needed ., Disp: , Rfl: , ; docusate sodium 100 MG CAPS, Take 100 mg by mouth 2 (two) times daily., Disp: 60 capsule, Rfl: 1, Ferrous Sulfate (IRON) 325 (65 FE) MG TABS, Take 1 tablet by mouth daily., Disp: , Rfl: , ; folic acid (FOLVITE) 1 MG tablet, Take 1 mg by mouth daily., Disp: , Rfl: , ; HYDROmorpho ne (DILAUDID) 4 MG tablet, Take 4 mg by mouth every 3 (three) hours as needed for Pain., Dis p: , Rfl: , ; levothyroxine (SYNTHROID, LEVOTHROID) 75 MCG tablet, Take 1 tablet by mouth d aily., Disp: , Rfl: , lisinopril (PRINIVIL,ZESTRIL) 10 MG tablet, Take 1 tablet by mouth daily., Disp: , Rfl: , ; Magnesium 100 MG CAPS, Take 1 tablet by mouth daily., Disp: , Rfl: , ; methotrexate 2.5 M G tablet, Take 25 tablets by mouth once a week. Takes on Thursday, Disp: , Rfl: , ; morphin e (MS CONTIN) 30 MG 12 hr tablet, Take 1 tablet by mouth every 12 (twelve) hours., Disp: 60 tablet, Rfl: 0, omeprazole (PRILOSEC) 20 MG capsule, Take 1 capsule by mouth 2 (two) times daily., Disp: , Rfl: , ; PLAVIX 75 MG tablet, Take 1 tablet by mouth daily., Disp: , Rfl: , ; predniSONE ( DELTASONE) 5 MG tablet, Take 1 tablet by mouth 2 (two) times daily., Disp: , Rfl: , ; senna (SENOKOT) 8.6 MG tablet, Take 2 tablets by mouth 2 (two) times daily., Disp: 60 tablet, Rfl : 1, simvastatin (ZOCOR) 40 MG tablet, Take 1 tablet by mouth daily., Disp: , Rfl: , ; venlafax ine (EFFEXOR-XR) 75 MG 24 hr capsule, Take 1 capsule by mouth daily., Disp: , Rfl: , No Known Allergies Family History Problem Relation Age of Onset Cancer Father PE: 68-year-old female, well-developed, well-nourished female HEENT: NT/AT Chest: CTA A&P CV: RRR Abdomen: soft Lumbar: She ambulates with a forward-biased gait with the use of a cane. She has significa nt tenderness to palpation at the L4-5 and L5-S1 region where straight leg raise was negativ e today. She is able to heel-to-toe walk, although she has more difficulty heel walk rather than toe walk. Reflex: unequivocal bilateral patella and achilles without clonus. Assessment: Lumbar spondylolisthesis L4-5 and L5-S1 Lumbar stenosis L4-S1 Lumbar radiculopathy Plan: Mrs. Carmona has exhausted all conservative efforts as above. Recommendation is to stabiliz e the unstable spondylolisthesis at L4-5 and L5-S1 anteriorly. The risks of surgery was d/w patient including but notlimited to infection, stroke, , bleeding, DVT, dural tear, abd ominal perforation and among others. All patient's question were answered in their entirety and would like to proceed with surgery. Patient is well aware Dr. Restrepo, Vascular Surgeon w ill be helping with the anterior approach. Informed consent was obtained and we will proceed as planned. RITA MONROE 03/28/2014 documented in this enc ounter Consult Notes Wing Avila Fuentes MD - 04/04/2014 1:10 PM PSTFormatting of this note might be different from th e original. Consult* by Wing Avila Fuentes MD at 04/04/14 1310 Author: Wing Avila Fuentes MD Service: (none) Author Type: Physician Filed: 04/04/[id number] Date of Service: 04/04/141309 Status: Signed Bleach Boiler Filler: Wing Avila Fuentes MD (Physician) [facility] Service: Physical Medicine & Rehab Initial Consult Note Date of Admission: 03/29/2014 Reason for Consultation: Consideration for IPR Requesting Physician: Dr. Cabrera, Orthopedic Surgery History Obtained From: patient, chart review CHIEF COMPLAINT: Lumbar fusion HISTORY OF PRESENT ILLNESS The patient is a 68 y.o. female with significant past medical history of GERD, depression, COPD and RA. Mrs. Carmona is a 68 y/o female who has been quite miserable with regards to h is low back and leg pain. She has tried numerous conservative efforts including but not limi april to PT, pain management, lumbar epidurals all providing minimal relief from her pain. Amb ulating any more than several feet significantly brings on the pain.Workup revealed patient with significant L4-5L5-S1 spondylolisthesis.The patient was admitted and is s/p L4-5S1 ALIF with Dr. Cabrera. Consultation is being requested to determine her IPR needs and potential REVIEW OF SYSTEMS Review of Systems She has moderate back pain She is continent of bowel and bladder She denied SOB Past Medical History Diagnosis Date Anemia GERD (gastroesophageal reflux disease) Hypertension Arthritis Hyperlipidemia Depression Other chronic pain Joint pain COPD (chronic obstructive pulmonary disease) Thyroid disease Unspecified visual disturbance glasses Stroke 2004 RA (rheumatoid arthritis) Past Surgical History Procedure Laterality Date Cholecystectomy 2000 Bladder suspension 2000 Finger surgery 12-02-11 Thumb Shoulder surgery 12/2011 Lumbar epidural injection 05-27-12 Right L5 TFESI target Right S1 Caudal block 07-15-12 Caudal w/ cath target Right L5, S1 Unlisted procedure arthroscopy Colonoscopy Cataract extraction Cervical fusion 01/19/2013 Procedure: CERVICAL - DISC & FUSION - ANTERIOR; Surgeon: Silviano Cabrera MD; Location: [facility] MAIN OR; Service: Orthopedics; Laterality: N/A; C4-6 Hysterectomy 1974 ovaries removed Eye surgery Hardware removal Spine surgery Cervical fusion 04/06/2013 Procedure: CERVICAL - FUSION - POSTERIOR; Surgeon: Silviano Cabrera MD; Location: [facility] OR; Service: Ortho/Spine; Laterality: N/A; C4-6 & decompression Lumbar fusion N/A 03/29/2014 Procedure: LUMBAR - FUSION - ANTERIOR; Surgeon: Silviano Cabrera MD; Location: [facility] MAIN OR ; Service: Ortho/Spine; Laterality: N/A; L4/5, L5/S1 Lumbar fusion N/A 03/31/2014 Procedure: LUMBAR - FUSION - POST; Surgeon: Silviano Cabrera MD; Location: [facility] OR; S ervice: Ortho/Spine; Laterality: N/A; L 4/S1 Lumbar decompression & fusion N/A 03/31/2014 Procedure: LUMBAR - DECOMPRESSION & FUSION; Surgeon: Silviano Cabrera MD; Location: [facility] [place]; Service: Ortho/Spine; Laterality: N/A; No Known Allergies Prescriptions prior to admission Medication Sig Dispense Refill albuterol (PROVENTIL) (2.5 MG/3ML) 0.083% nebulizer solution Take 2.5 mg by nebulizatio n 3 (three) times daily. History of smoking, COPD, and asthma aspirin 81 MG tablet Take 81 mg by mouth daily. Cholecalciferol (VITAMIN D) 2000 UNITS CAPS Take 1 capsule by mouth daily. cloNIDine (CATAPRES) 0.1 MG tablet Take 0.1 mg by mouth 2 (two) times daily. diazepam (VALIUM) 10 MG tablet Take 10 mg by mouth every 6 (six) hours as needed. Ferrous Sulfate (IRON) 325 (65 FE) MG TABS Take 1 tablet by mouth daily. folic acid (FOLVITE) 1 MG tablet Take 1 mg by mouth daily. HYDROmorphone (DILAUDID) 4 MG tablet Take 4 mg by mouth every 3 (three) hours as needed for Pain. levothyroxine (SYNTHROID, LEVOTHROID) 75 MCG tablet Take 1 tablet by mouth daily. lisinopril (PRINIVIL,ZESTRIL) 10 MG tablet Take 1 tablet by mouth daily. Magnesium 100 MG CAPS Take 1 tablet by mouth daily. methotrexate 2.5 MG tablet Take 25 tablets by mouth once a week. Takes on Thursday omeprazole (PRILOSEC) 20 MG capsule Take 1 capsule by mouth 2 (two) times daily. PLAVIX 75 MG tablet Take 1 tablet by mouth daily. predniSONE (DELTASONE) 5 MG tablet Take 1 tablet by mouth 2 (two) times daily. simvastatin (ZOCOR) 40 MG tablet Take 1 tablet by mouth daily. venlafaxine (EFFEXOR-XR) 75 MG 24 hr capsule Take 1 capsule by mouth daily. calcium carbonate (TUMS) 500 MG chewable tablet Take 2 tablets by mouth every 6 (six) h ours as needed. 60 tablet 1 docusate sodium 100 MG CAPS Take 100 mg by mouth 2 (two) times daily. 60 capsule 1 morphine (MS CONTIN) 30 MG 12 hr tablet Take 1 tablet by mouth every 12 (twelve) hours. 60 tablet 0 senna (SENOKOT) 8.6 MG tablet Take 2 tablets by mouth 2 (two) times daily. 60 tablet 1 Scheduled Medications albuterol 2.5 mg Nebulization 4x [...] Continuous Infusions sodium chloride 110 mL/hr at 04/04/14 1009 PRN Medications acetaminophen, acetaminophen, bisacodyl, calcium carbonate, diazepam, diphenhydrAMINE, diph enhydrAMINE, HYDROmorphone, magnesium hydroxide, naloxone, ondansetron, ondansetron, oxyCODO NE-acetaminophen, polyethylene glycol, promethazine Family History Problem Relation Age of Onset Cancer Father SOCIAL HISTORY She lives alone, and has 5 steps to get into home. PHYSICAL EXAM Vital Signs: BP 140/63 | Pulse 69 | Temp(Src) 98.7 F (37.1 C) (Oral) | Resp 20 | Ht 1.575 m (5' 2.01 ") | Wt 77.2 kg (170 lb 3.1 oz) | BMI 31.12 kg/m2 | SpO2 97% Physical Exam HEENT: NC/AT; EOMI; face is symmetrical Neck: supple Lung: clear Cardiac; Regular Abdo: soft ; female Rectal: deferred MS: trace ankle edema Neuro: alert and oriented. Speaking well. CN II-XII grossly intact. She has too much sushma n to test strength objectively. FUNCTIONAL: She is at min assist for transfers. She was ambulatory to about 60'. DATA PROBLEM LIST Active Problems: * No active hospital problems. * ASSESSMENT & PLAN the patient is a 68 year-old right-handed white female s/p lumbar fusion with Dr. Cabrera. She lives alone and will need additional help. Given her situation, she is better suited for d ischarge to SNF for subacute care till she is fully ready for discharge home alone. We'll c tamara to treat acutely till discharge. Code Status: Full Code Primary Care Physician: RAVINDRA GILBERT Thank you for allowing me to participate in the care of this patient. WING Avila FUENTES MD 04/04/2014 documented in this encou nter Miscellaneous Notes Plan of Care - Conversion Transaction, Provider Unknown - 04/06/2014 11:40 PM PST Plan of Care by Nathalie Damon RN at 04/06/142339 Author: Nathalie Damon RN Service: (none) Author Type: Registered Nurse Filed: 04/06/142339 Date of Service: 04/06/142339 Status: Signed Bleach Boiler Filler: Nathalie Damon RN (Registered Nurse) Problem: Pain Goal: Patient s pain/discomfort is manageable Assess and monitor patient s pain using appropriate pain scale. Collaborate with interdis ciplinary team and initiate plan and interventions as ordered. Re-assess patient s pain le lobo approximately 1-2 hours after pain management intervention. Premedicate as needed. Outcome: Progressing Patient complains of no pain at this point. Will continue to monitor and provide as needed as well as provide comfort measures. Problem: Safety Goal: Patient will be injury free during hospitalization Assess and monitor vitals signs, neurological status including level of consciousness and o rientation. Assess patient s risk for falls and implement fall prevention plan of care and interventions per hospital policy. Ensure arm band on, uncluttered walking paths in room, adequate room lighting, call light a nd overbed table within reach, bed in low position, wheels locked, side rails up per policy, and non-skid footwear provided. Outcome: Progressing Patient will remain free from falls during hospital visit. Call light within reach. Bed i n lowest position. Room free from clutter. Patient states she will call when needs assista nce. Problem: Psychosocial Needs Goal: Demonstrates ability to cope with hospitalization/illness Assess and monitor patients ability to cope with his/her illness. Outcome: Progressing Patient denies any needs at this time. Will continue to monitor. lan o f Care - Conversion Transaction, Provider Unknown - 04/06/2014 8:56 AM PSTFormatting of thi s note might be different from the original. Plan of Care by Shayne Chen RN at 04/06/1456 Author: Shayne Chen RN Service: (none) Author Type: Registered Nurse Filed: 04/06/1456 Date of Service: 04/06/14855 Status: Signed Bleach Boiler Filler: Shayne Chen RN (Registered Nurse) Encouraged patient to use call light when wanting to mobilize Encouraged IS use 10x/hr while awake lan o f Care - Conversion Transaction, Provider Unknown - 04/05/2014 3:08 PM PSTFormatting of thi s note might be different from the original. Plan of Care by Noreen Sharma RN at 04/05/14 1508 Author: Noreen Sharma RN Service: (none) Author Type: Registered Nurse Filed: 04/05/14 1508 Date of Service: 04/05/141507 Status: Signed Bleach Boiler Filler: Noreen Sharma RN (Registered Nurse) Problem: Safety Goal: Patient will be injury free during hospitalization Assess and monitor vitals signs, neurological status including level of consciousness and o rientation. Assess patient s risk for falls and implement fall prevention plan of care and interventions per hospital policy. Ensure arm band on, uncluttered walking paths in room, adequate room lighting, call light a nd overbed table within reach, bed in low position, wheels locked, side rails up per policy, and non-skid footwear provided. Outcome: Progressing Patient ambulating well with assistance. Call light within reach. lan o f Care - Conversion Transaction, Provider Unknown - 04/03/2014 9:14 AM PSTFormatting of thi s note might be different from the original. Plan of Care by May Alvarez RN at 04/03/14913 Author: May Alvarez RN Service: (none) Author Type: Registered Nurse Filed: 04/03/1415 Date of Service: 04/03/14913 Status: Signed Bleach Boiler Filler: May Alvarez RN (Registered Nurse) Patient's discharge needs are met Progressing Patient will be discharged when criteria met. Patient's pain/discomfort is manageable Progressing Patient's pain will be managed with oral medications. No falls during hospitalization Progressing Bed alarm on. Patient will call appropriately. [facility] p Not suzan - Silviano Cabrera Jr., MD - 03/31/2014 4:01 PM PDTFormatting of this note might be differe nt from the original. Op Note by Silviano Cabrera MD at 03/31/14 1601 Author: Silviano Cabrera MD Service: Orthopedic Surgery Author Type: Physician Filed: 04/02/14 0657 Date of Service: 03/31/14 1601 Status: Signed Bleach Boiler Filler: Silviano Cabrera MD (Physician) [facility] Service: Orthopedic Surgery Operative Note Name: Thea Carmona Age: 68 y.o. Procedure: Posterior lumbar decompression and fusion L4-L5-S1 1. L4-5, L5-S1 posterior bilateral laminoforaminotomies 2. Arthrodesis, posterolateral technique, L4-L5-S1, BMP, autograft, IC graft chamber allog raft 3. Posterior pedicle screw instrumention, L4-L5-S1, Nuvasive Precept Screw System 4. Aspiration iliac crest bone marrow 5. [place] of subcutaneous fat graft with transposition/application to epidural space 5. Neuromonitoring 6. Fluoroscopy 7. Microscope Diagnoses: Pre-Op: Lumbar radiculopathy L4-L5-S1 Lumbar stenosis, foraminal stenosis L4-L5-S1 Lumbar spondylolisthesis L4-L5-S1 Post-Op: Same as above Surgeon: Silviano Cabrera MD Assist: RITA Rubio Anesthesia: General endotracheal Specimens: None Indications: See dictated admission history and physical. Est. Blood Loss: 200 cc Total IV Fluids: Per anesthetic record Complications: None PROCEDURE DESCRIPTION: The patient was brought to the operating room and a timeout performed just prior to initiat ing the procedure verifying the correct patient, operative site, films, allergies, implants, and levels planned. Preoperative antibiotics were administered. The patient underwent gener al endotracheal anesthesia. A Rodriguez catheter was placed by nursing. Neuromonitoring electrod es were placed for free running EMG and pedicle screw stimulation. The patient was then turned prone onto a second OR table for the posterior decompression pr ocedure and instrumentation L4-L5-S1. The arms were placed overhead and again all chavez pressu re points padded appropriately including the eyes. The patient's lumbar region was prepped and draped in the usual sterile fashion. Paramidline Rosalinda-type incisions were planned ove r the pedicles bilaterally from L4-S1. These were infiltrated with 1% lidocaine with epinep hrine. The incisions were made and carried down through the subcutaneous layer. The lumbodor lisa fascia was incised and blunt finger dissection carried down through to the facets. Jamsh idi needles from the Svpply percutaneous pedicle screw system were then used to navigate d own the pedicles using an owl s eye type view. This was done under neuromonitoring guidan ce. K-wires were then placed at each pedicle level bilaterally and the Jamshidi needles andrez mariann. The appropriate tap was then passed over the K-wire followed by the appropriate pedicl e screw size, again under neuromonitoring guidance. We did not experience any low stimulati on readings. The screws were confirmed with both AP and lateral fluoroscopy and had good pu rchase. Once the screws were in position on each side, the Svpply retractor blades were attached to the PPS screws for exposure to the facet complex. The retractor was then secured to th e OR table arm. A partial facetectomy was then performed. The intervening ligamentum fla vum was carefully mobilized from the dura and elevated and subarticular recess stenosis andrez mariann with Kerrison punches. This was widened out to the edge of the thecal sac and nerve root s. The exiting and traversing nerve roots appeared to have reasonable excursion. The bon e was saved for bone graft material. The posterolateral gutter was dissected out and lamina /posterolateral facet complex/posterolateral gutter were dissected out and exposed cancellou s bone created with osteotomes and high speed ginger at L4-L5-S1. The retractor was removed and the screw extensions placed on the Nuvasive PPS screws. Mary Anne ropriate lordotic rods were measured and passed through the screw extensions on each side. T hese were then secured into the screw heads with the locking caps to the appropriate torque. The screw extensions were then removed. The entire construct was then confirmed with fluoro scopy. The remaining posterolateral bony elements and facet were decorticated to bleeding cancello us bone using the Midas Jerardo. The remaining bone graft material along with BMP/IC graft chamb er and local harvested autograft was placed out into the posterior lateral gutters and aroun d the hardware for posterolateral fusion. The wounds were irrigated with antibiotic irrigati on. Subcutaneous dissection then ensued with harvest of a 2x2 cm fat graft. This was thinned a nd prepared on the back table, soaked in antibiotic solution and then placed into the lamina r defects at L4-L5-S1 to protect the exposed dura and prevent epidural adhesions. Thrombin soaked Gelfoam was placed over the exposed fat graft over dura and hemostasis achi eved. The wounds were then closed in layers. The fascia was closed with interrupted 0-Vicryl sutures. The subcutaneous layer and dermis were closed with interrupted 2-0 and 3-0 Vicryl sutures. Steri strips were applied to the skin and a sterile dressing applied. All counts w ere correct at the end of the procedure. There were no intraoperative complications. The pa tient was extubated and taken to the recovery room in good condition. The SERVICE LINE LAYER assist was present throughout the entire case from positioning to closure and help ed with exposure, retraction, suctioning, and suturing. The assistant loan processor surgeon SERVICE LINE LAYER was anna aggarwal for this procedure. Disposition: Pt moved to PACU/recovery room. Condition: Stable and satisfactory condition. Sponge and Needle Count: Correct SILVIANO CABRERA MD has created this entry using [employer] Voice Recognition software an d Netli macros. The entry has been reviewed and there may still exist sound alike word error s. p Note - Kathleen Cabrera Jr., MD - 03/31/2014 4:00 PM PDT Brief Op Note by Silviano Cabrera MD at 03/31/141599 Author: Silviano Cabrera MD Service: Orthopedic Surgery Author Type: Physician Filed: 04/02/14 0647 Date of Service: 10/31/14 1600 Status: Signed Bleach Boiler Filler: Silviano Cabrera MD (Physician) [facility] Service: Orthopedic Surgery Brief Op Note See complete electronic operative report for full details. SILVIANO CABRERA MD 03/31/2014 lan of Care - Co nversion Transaction, Provider Unknown - 03/31/2014 12:10 PM PDTFormatting of this note migh t be different from the original. Plan of Care by Noreen Miller RN at 03/31/14 1210 Author: Noreen Miller RN Service: (none) Author Type: Registered Nurse Filed: 03/31/141209 Date of Service: 03/31/141209 Status: Signed Bleach Boiler Filler: Noreen Miller RN (Registered Nurse) Problem: Pain Goal: Patient s pain/discomfort is manageable Assess and monitor patient s pain using appropriate pain scale. Collaborate with interdis ciplinary team and initiate plan and interventions as ordered. Re-assess patient s pain le lobo approximately 1-2 hours after pain management intervention. Premedicate as needed. Outcome: Progressing Patient's pain management plan of care discussed, pain controlled, patient requests medicat ion appropriately, pain reassessments performed. Problem: Safety Goal: Patient will be injury free during hospitalization Assess and monitor vitals signs, neurological status including level of consciousness and o rientation. Assess patient s risk for falls and implement fall prevention plan of care and interventions per hospital policy. Ensure arm band on, uncluttered walking paths in room, adequate room lighting, call light a nd overbed table within reach, bed in low position, wheels locked, side rails up per policy, and non-skid footwear provided. Outcome: Progressing Safety measures maintained, room clutter free, bed in lowest position, side rails up, arm b ands on, O2/sx/AMBU at bedside, and call light in reach. lan o f Care - Conversion Transaction, Provider Unknown - 03/31/2014 12:29 AM PDTFormatting of thi s note might be different from the original. Plan of Care by Carmela Taylor RN at 03/31/14 0029 Author: Carmela Taylor RN Service: (none) Author Type: Registered Nurse Filed: 03/31/140 Date of Service: 03/31/1428 Status: Signed Bleach Boiler Filler: Carmela Taylor RN (Registered Nurse) Problem: Pain Goal: Patient s pain/discomfort is manageable Assess and monitor patient s pain using appropriate pain scale. Collaborate with interdis ciplinary team and initiate plan and interventions as ordered. Re-assess patient s pain le lobo approximately 1-2 hours after pain management intervention. Premedicate as needed. Outcome: Progressing Pain currently being managed with REACTOR TECHNICIAN p Not suzan - Silviano Cabrera Jr., MD - 03/29/2014 11:30 AM PDTFormatting of this note might be differe nt from the original. Op Note by Silviano Cabrera MD at 03/29/141129 Author: Silviano Cabrera MD Service: Orthopedic Surgery Author Type: Physician Filed: 03/30/1431 Date of Service: 03/29/141129 Status: Signed Bleach Boiler Filler: Silviano Cabrera MD (Physician) [facility] Service: Orthopedic Surgery Operative Note ..[facility] OPERATIVE NOTE Name: Thea Carmona Age: 68 y.o. Procedure: ALIF L4-L5-S1 1. Arthrodesis, anteriore interbody technique, ALIF L4-5L5-S1 2. Application of interbody cage L4-5L5-S1 3. Application of interbody [id number] 4. Anterior lumbar decompression L4-5L5-S1 5. [place] of subcutaneous fat graft with transposition to epidural space L4-5L5-S1 6. Aspiration of vertebral body stem cells 7. Fluoroscopy Diagnoses: Pre-Op: Lumbar radiculopathy L4-5L5-S1 Lumbar stenosis, foraminal stenosis L4-5L5-S1 Lumbar spondylolisthesis L4-5L5-S1 Post-Op: Same as above Surgeon: Silviano Cabrera MD, Co-Surgeon John Restrepo Assist: RITA Rubio Anesthesia: General endotracheal Specimens: None Indications: See dictated admission history and physical. Estimated Blood Loss: Per anesthetic record, Dr. Restrepo dictation. Complications: None PROCEDURE DESCRIPTION: The patient was brought to the operating room and a timeout performed just prior to initiat ing the procedure verifying the correct patient, operative site, films, allergies, implants, and levels planned. Preoperative antibiotics were administered. The patient underwent gener al endotracheal anesthesia. A Rodriguez catheter was placed by nursing. The patient was then placed in the supine position with slight extension of the lumbar spin e. A lumbar support towel was placed to increase the lordosis. An midline incision beneath the umbilicus was marked using fluoroscopy over the disc space at L4-5L5-S1. The patient w as then prepped and draped in the usual sterile fashion. A pulse oximeter was maintained on the left great toe. Dr. Restrepo then provided the exposure to the anterior lumbar region at L4-5L5-S1 and the level was confirmed with fluoroscopy. He will dictate his part of the pr ocedure separately. The anterior lumbar retractor was used for retraction and the vessels were protected. The anterior longitudinal ligament and disc space at L4-5L5-S1 were then incised. A complete L4 -5L5-S1 discectomy was then performed using curettes, Medina elevators, and pituitary forceps. A ball-tip nerve was used to retrieve disc in the foramen bilaterally. Excellent decompress ion under loupe magniifcation was obtained. This required meticulous microdissection with ta [place] and freeing of the PLL. This was above and beyond the usual simple disc prep for fus ion alone. I selected several trials and eventually settled on a apporpriate sized cage. Subcutaneous fat graft was then harvested from the anterior lumbar wound, thinned and harve sted on the back table to the apporpriate size, and transposed to the L4-5L5-S1 interspaces prior to impaction of graft. I used BMP sponges x 2 with aspirate/stem cells taken from the vertebral body into the c age. The cage was then impacted into the disc space L4-5L5-S1. Screws were then placed into the L4-5, L5-S1 vertebral bodies for anterior instrumentation to Keep the interbody devic e well aligned and in place. The entire anterior lumbar interbody cage construct was confir med with A/P and lateral fluoroscopy to be in good position with excellent latter day of di sc space height and foraminal height as well as reduction of the spondylolisthesis. Dr. Restrepo then returned to close the anterior lumbar approach incision. The patient had excellent pulses throughout with intact neuro status and vitals in the post op recovery room/period. RITA Rubio assistant loan processor surgeon was present for the entirety of the case secondary to th e lack of a qualified assistant loan processor and the complex neurologic nature of the case. Disposition: Pt moved to PACU/recovery room. Condition: Stable and satisfactory condition. Sponge and Needle Count: Correct SILVIANO CABRERA MD has created this entry using Siklu Recognition software an [employer]. The entry has been reviewed and there may still exist sound alike word error s. SILVIANO CABRERA MD 03/29/2014 p Note - Kathleen Cabrera Jr., MD - 03/29/2014 11:30 AM PDT Brief Op Note by Silviano Cabrera MD at 03/29/14 1130 Author: Silviano Cabrera MD Service: Orthopedic Surgery Author Type: Physician Filed: 03/30/14 0824 Date of Service: 03/29/140 Status: Signed Bleach Boiler Filler: Silviano Cabrera MD (Physician) [facility] Service: Orthopedic Surgery Brief Op Note See complete electronic operative report for full details. SILVIANO CABRERA MD 03/29/2014 p Note - John Smith MD - 03/29/2014 11:14 AM PDT Op Note by John Stewart MD at 03/29/14 1114 Author: John Stewart MD Service: Vascular Surgery Author Type: Physician Filed: 03/29/14 1135 Date of Service: 03/29/144 Status: Signed Bleach Boiler Filler: John Stewart MD (Physician) [facility] Service: Vascular Surgery Operative Note Pre-operative Diagnosis: 1. L4-L5, L5-S1 spondylolisthesis. 2. Spinal lumbar stenosis. 3. Radiculopathy. Post-operative Diagnosis: Same Procedure(s): 1. Muscle sparing anterior abdominal extraperitoneal approach for anterior lumbar interbody fusion, 2 levels, L4-L5, L5-S1. 2. Mobilization of the left iliac artery. 3. Mobilization of the left iliac vein. 4. Exposure of the anterior surface of the spine at the level of L4-L5, L5-S1. Surgeon: Silviano Cabrera M.D. Co-Surgeon: JOHN STEWART MD Local Bulk Driver(s): RITA Rubio. Anesthesiologist: Ghulam Ovalle M.D. Anesthesia: General endotrachial anesthesia and Local anesthesia Estimated Blood Loss: 300 ml Other: IV Fluids: 2300 cryst ml Drains: None ml Urine Output: 500 clear ml Implants: L4-L5, L5-S1 allograft Specimens: L4-L5, L5-S1 disc. Indications: See pre-operative history and physical. Findings: The left iliac artery was calcified but had a pulse. There was a palpable pulse. At all times, the left second toe oxygen saturation monitor was at 100% during the procedur e and after the procedure. The left iliac vein was intact. The left ureter was intact and we ll preserved. There was a palpable left dorsalis pedis and posterior tibial pulse at the end of the procedure. Complications: None. Description of Procedure: After proper identification and me discussing with the patient in the holding area the risk s and complications again, reviewing the history and physical, and updating it and examining the patient and having marked the left lower quadrant of the abdomen, the patient was taken to the operating room and was placed in the supine position. General endotracheal anesthesi a was achieved without any complications. A Rodriguez catheter was placed by the RN. SCD devices were placed on both legs. The patient received 2 g of IV cefazolin at the time of induction .Oxygen saturation monitor was placed on the left second toe. The x-ray phlebotomy services technician came in to the operating room and the L4-L5 and L5-S1 space were marked on the midline skin on the p atient. The entire abdomen was then prepped and draped in the usual sterile fashion. A safet y time out pre procedure was performed to identify the patient, surgeon, site and site to e operation, consent, and these were noted to be correct. At this point, attention was place d on the midline infraumbilical abdomen and a vertical incision was performed. The incision was carried down through the subcutaneous tissues, down to the linea alba. The left rectus f ascia was incised and the muscle was lifted exposing the muscle fibers and fascia transversa lis/preperitoneal fat carefully it from the peritoneum, taking care not to enter the peritoneal cavity. The peritoneum was then bluntly dissected away from the under surface of the internal oblique muscle. Careful blunt dissection was then utilized to elevate the p eritoneum anteriorly until the psoas muscle was identified and exposed. The left ureter was then also identified and swept upward with the peritoneum and its contents. The left iliac a rtery was calcified in segments and had a pulse. Further dissection was then used to dissect both the anterior surface of the left common iliac artery which was seen and the pulse was palpated. A hand held retractor was placed into the retroperitoneal lateral rectus muscle. A lap sponge was inserted over the psoas muscle and pushed superiorly to keep the abdominal c ontents out of the way. At this point, the Tedan retractor poles were attached to the table and the Tedan retractor was then placed. Dissection along the medial wall of the left iliac artery was then carried out to expose the common iliac vein which lies under and slightly to the right of the artery. Blades were placed into the field holding them to the retractor. W ith extreme care, the vein was also exposed in its entirety and deep dissection carried out to expose the L5-S1 disk space and with careful dissection, the left iliac artery was bluntl y dissected close to the spine to be able to expose L4-L5 space. I ligated the left iliolumb ar vein with endoclips x 2 proximally and distally and cutting the vessel to allow further d issection medially. The retraction blades were then used to retract the vessels from mediall y to lateral exposing the L4-L5 space and confirmed by X rays. Dr. Cabrera then performed the d iskectomy and fusion of L4-L5 with the proper technique and hardware. After confirming with X rays, then the retractor blades were loosen allowing the vessels to go to their anatomical position. Mobilization of the iliac vessels below the bifurcation was carried out for prope r visualization of the anterior surface of the spine. The dissection was carried out bluntly with Kittner retractors and cautery. After proper skeletonized, mobilization of the vessels , and preservation of all vital structures, the promontory was exposed and a needle was then inserted into the disk and an x-ray was taken to verify the level. The middle sacral vesse ls were then carefully cauterized with the bipolar cautery and transected. Dr. Cabrera then pro ceeded to performed diskectomy, and anterior lumbar interbody fusion using the appropriate t echnique and hardware. After the diskectomy and fusion were completed and copious irrigation was performed, it was verified with x-ray by Dr. Cabrera. Gelfoam was placed on top of the bon e allograft to help with the oozing and hemostasis. The retractor blades were then removed a nd the integrity of the iliac vessels was then checked to make sure that there was no bleedi ng or tear seen. There was a palpable pulse on the left iliac artery and the left iliac vein was intact. The left ureter was also seen and was well preserved and intact. There was no f urther bleeding after checking for hemostasis. After this, the vessels were allowed to roll back to their anatomical position. The midline was then closed with 1 Vicryl suture in a con tinuous running fashion technique. The subcutaneous tissue was irrigated with saline solutio n and was closed with 3-0 Vicryl in a continuous running fashion technique.With the C arm, 4 quadrants pictures were taken on the abdomen to make sure there were no surgical instrument s, surgical materials or needles left in the retroperitoneum, there were none seen by us and confirmed by the radiologist. 4-0 Monocryl for the subcuticular closure of the skin. Herminio vic 0.25% with epinephrine was injected in the subcutaneous space in the wound. The wound w as dressed with Steri-Strips, 4 x 4, and Tegaderm. The suture, needle count, surgical instru ment, and surgical materials were reported to be complete. There were no complications throu ghout the procedure. The oxygen saturation monitor on the left second toe was marking 100%. There was a palpable left dorsalis pedis and posterior tibial pulse at the end of the proced ure. The patient was extubated and transferred to the recovery room in stable conditions. e will have the posterior portion of the operation done at a later stage. Condition: Stable JOHN STEWART MD 03/29/2014 documented in this encounter Plan of Treatment +--------+---------+ + + + | Date | Type | Specialty | Care Team | Description | +--------+---------+ + + + | 03/06/ | Office | Rheumatology | Santosh Sumner, | | | 2019 | Visit | | [address] | | | | | | [facility] | | | | | | [place] [address] | | | | | | [phone] | | | | | | | [...] Fabián, Rad Conversion - 01/14/2019 11:10 AM [facility] THEA CARMONA1944XR LUMBAR | | SPINE LIMITED [...] | | | | | [place] [address] | | | | + + + + + + | Non- | 2.74 (L)Comment: Testing | 3.70 - 5.10 | EXTERNAL | | | Red Blood | performed at [facility], [address] | M/uL | LAB | | | Cells | [address], | | | | | Counted | [place] [id number] | | | | + + + + + + | Hemoglobin | 8.4 (L)Comment: Testing | 11.3 - 15.5 | EXTERNAL | | | | performed at [facility], [address] | g/dL | LAB | | | | [address], | | | | | | [place] [address] | | | | + + + + + + | Hematocrit, | 25.6 (L)Comment: Testing | 34.0 - 46.0 % | EXTERNAL | | | POC | performed at [facility], [address] | | LAB | | | | [address], | | | | | | [place] [address] | | | | + + + + + + | MCV | 93.6Comment: Testing | 80.0 - 100.0 fl | EXTERNAL | | | | performed at [facility], [address] | | LAB | | | | [address], | | | | | | [place] [address] | | | | + + + + + + | MCH | 30.5Comment: Testing | 27.0 - 34.0 pg | EXTERNAL | | | | performed at [facility], [address] | | LAB | | | | [address], | | | | | | [place] [address] | | | | + + + + + + | MCHC | 32.6Comment: Testing | 32.0 - 35.5 | EXTERNAL | | | | performed at [facility], [address] | g/dL | LAB | | | | [address], | | | | | | [place] [address] | | | | + + + + + + | RDW-CV | 64.8 (H)Comment: Testing | 37 - 53 fl | EXTERNAL | | | | performed at [facility], [address] | | LAB | | | | [address], | | | | | | [place] [address] | | | | + + + + + + | Platelet | 163Comment: Testing | 150 - 400 K/uL | EXTERNAL | | | Count | performed at [facility], [address] | | LAB | | | Plasma | [address], | | | | | | [place] [address] | | | | + + + + + + | MPV | 7.9Comment: Testing | fl | EXTERNAL | | | | performed at [facility], [address] | | LAB | | | | [address], | | | | | | [place] [address] | | | | + + + + + + | Differentia | MANUALComment: Testing | | EXTERNAL | | | l Type | performed at [facility], [address] | | LAB | | | | [address], | | | | | | [place] [address] | | | | + + + + + + | Segmented | 79Comment: Testing | % | EXTERNAL | | | Neutrophils | performed at [facility], [address] | | LAB | | | Manual | [address], | | | | | | [place] [address] | | | | + + + + + + | % Bands | 2Comment: Testing | % | EXTERNAL | | | | performed at [facility], [address] | | LAB | | | | [address], | | | | | | [place], [place] [address] | | | | + + + + + + | % | 1Comment: Testing | % | EXTERNAL | | | Metamyelocy | performed at [facility], [address] | | LAB | | | margarita | [address], | | | | | | [place], [place] [address] | | | | + + + + + + | Lymphocytes | 6Comment: Testing | % | EXTERNAL | | | Manual | performed at [facility], [address] | | LAB | | | | [address], | | | | | | [place] [address] | | | | + + + + + + | Monocytes | 12Comment: Testing | % | EXTERNAL | | | Manual | performed at [facility], [address] | | LAB | | | | [address], | | | | | | [place] [address] | | | | + + + + + + | Absolute | 11.9 (H)Comment: Testing | 1.9 - 7.4 K/uL | EXTERNAL | | | Neutrophils | performed at [facility], [address] | | LAB | | | | [address], | | | | | | [place] [address] | | | | + + + + + + | Bands | 0.3 (H)Comment: Testing | 0 - 0.2 K/uL | EXTERNAL | | | Manual | performed at [facility], [address] | | LAB | | | | [address], | | | | | | [place] [address] | | | | + + + + + + | Absolute | 0.2 (H)Comment: Testing | K/uL | EXTERNAL | | | Metamyelocy | performed at [facility], [address] | | LAB | | | [address] | [address], | | | | | | [place] [address] | | | | + + + + + + | Absolute | 0.9 (L)Comment: Testing | 1.0 - 3.9 K/uL | EXTERNAL | | | Lymphocytes | performed at [facility], [address] | | LAB | | | | [address], | | | | | | [place] [address] | | | | + + + + + + | Absolute | 1.8 (H)Comment: Testing | 0 - 0.8 K/uL | EXTERNAL | | | Monocytes | performed at [facility], [address] | | LAB | | | | [address], | | | | | | [place] [address] | | | | + + + + + + | RBC | 2+Comment: ANISONORMAL | | EXTERNAL | | | Morphology | PLT MORPHTesting | | LAB | | | | performed at [facility], [address] | | | | | | [address], | | | | | | [place] [address] | | | | | | | [...] mmol/L | LAB | | | | [address], | | | | | | [place] [address] | | | | + + + + + + | K | 4.1Comment: Testing | 3.5 - 4.9 | EXTERNAL | | | | performed at [facility], [address] | mmol/L | LAB | | | | [address], | | | | | | [place] [address] | | | | + + + + + + | Cl | 100Comment: Testing | 99 - 109 mmol/L | EXTERNAL | | | | performed at [facility], [address] | | LAB | | | | [address], | | | | | | [place] [address] | | | | + + + + + + | CO2 | 22 (L)Comment: Testing | 23 - 32 mmol/L | EXTERNAL | | | | performed at [facility], [address] | | LAB | | | | [address], | | | | | | [place] [address] | | | | + + + + + + | Anion Gap | 11Comment: Testing | 5 - 20 mmol/L | EXTERNAL | | | | performed at [facility], [address] | | LAB | | | | [address], | | | | | | [place] [address] | | | | + + + + + + | Glucose, | 117 (H)Comment: Testing | 65 - 99 mg/dL | EXTERNAL | | | Fasting | performed at [facility], [address] | | LAB | | | | [address], | | | | | | [place] [address] | | | | + + + + + + | BUN | 17Comment: Testing | 8 - 25 mg/dL | EXTERNAL | | | | performed at [facility], [address] | | LAB | | | | [address], | | | | | | [place] [address] | | | | + + + + + + | Creatinine | 0.79Comment: Testing | 0.50 - 1.00 | EXTERNAL | | | | performed at [facility], [address] | mg/dL | LAB | | | | [address], | | | | | | [place] [address] | | | | + + + + + + | BUN/Creatin | 22Comment: Testing | | EXTERNAL | | | ine Ratio | performed at [facility], [address] | | LAB | | | | [address], | | | | | | [place] [address] | | | | + + + + + + | Calcium | 8.1 (L)Comment: Testing | 8.5 - 10.2 | EXTERNAL | | | | performed at [facility], [address] | mg/dL | LAB | | | | [address], | | | | | | [place] [address] | | | | + + + [...] | | | | | | at [facility], [address] | | | | | | [facility], | | | | | | [place] [address] | | | | + + + [...] Note | + + | Fabián, Raoul Conversion - 01/14/2019 11:10 AM PDT THEA [id number] years | | Laexpv1203/30/2014 8:11 AMCT LUMBAR SPINE WO CONTRAST INDICATION: [...] | | + + External Lab: CBC (03/30/2014 5:46 AM PDT) + + + + + + | Component | Value | Ref Range | Performed | Pathologist | | | | | At | Signature | + + + + + + | WBC | 12.3 (H)Comment: Testing | 3.8 - 11.0 K/uL | EXTERNAL | | | | performed at [facility], [address] | | LAB | | | | [address], | | | | | | [place] [address] | | | | + + + + + + | Non- | 3.29 (L)Comment: Testing | 3.70 - 5.10 | EXTERNAL | | | Red Blood | performed at [facility], [address] | M/uL | LAB | | | Cells | [address], | | | | | Counted | [place] [address] | | | | + + + + + + | Hemoglobin | 9.9 (L)Comment: Testing | 11.3 - 15.5 | EXTERNAL | | | | performed at [facility], [address] | g/dL | LAB | | | | [address], | | | | | | [place] [address] | | | | + + + + + + | Hematocrit, | 30.8 (L)Comment: Testing | 34.0 - 46.0 % | EXTERNAL | | | POC | performed at [facility], [address] | | LAB | | | | [address], | | | | | | [place] [address] | | | | + + + + + + | MCV | 93.5Comment: Testing | 80.0 - 100.0 fl | EXTERNAL | | | | performed at [facility], [address] | | LAB | | | | [address], | | | | | | [place], [place] [address] | | | | + + + + + + | MCH | 30.0Comment: Testing | 27.0 - 34.0 pg | EXTERNAL | | | | performed at [facility], [address] | | LAB | | | | [address], | | | | | | [place], [place] [address] | | | | + + + + + + | MCHC | 32.1Comment: Testing | 32.0 - 35.5 | EXTERNAL | | | | performed at [facility], [address] | g/dL | LAB | | | | [address], | | | | | | [place] [address] | | | | + + + + + + | RDW-CV | 65.6 (H)Comment: Testing | 37 - 53 fl | EXTERNAL | | | | performed at [facility], [address] | | LAB | | | | [address], | | | | | | [place] [address] | | | | + + + + + + | Platelet | 177Comment: Testing | 150 - 400 K/uL | EXTERNAL | | | Count | performed at [facility], [address] | | LAB | | | Plasma | [address], | | | | | | [place] [address] | | | | + + + + + + | MPV | 8.0Comment: Testing | fl | EXTERNAL | | | | performed at [facility], [address] | | LAB | | | | [address], | | | | | | [place] [address] | | | | + + + + + + | Differentia | AUTOMATEDComment: | | EXTERNAL | | | l Type | Testing performed at | | LAB | | | | [facility], [address] | | | | | | [place] | | | | | | [address] | | | | + + + + + + | % Segmented | 79.7Comment: Testing | % | EXTERNAL | | | | performed at [facility], [address] | | LAB | | | Neutrophils | [address], | | | | | | [place] [address] | | | | + + + + + + | % | 9.4Comment: Testing | % | EXTERNAL | | | Lymphocytes | performed at [facility], [address] | | LAB | | | | [address], | | | | | | [place] [address] | | | | + + + + + + | % Monocytes | 10.7Comment: Testing | % | EXTERNAL | | | | performed at [facility], [address] | | LAB | | | | [address], | | | | | | [place] [address] | | | | + + + + + + | % | 0.1Comment: Testing | % | EXTERNAL | | | Eosinophils | performed at [facility], [address] | | LAB | | | | [address], | | | | | | [place], [place] [address] | | | | + + + + + + | % Basophils | 0.1Comment: Testing | % | EXTERNAL | | | | performed at [facility], [address] | | LAB | | | | [address], | | | | | | [place] [address] | | | | + + + + + + | Absolute | 9.8 (H)Comment: Testing | 1.9 - 7.4 K/uL | EXTERNAL | | | Segmented | performed at [facility], [address] | | LAB | | | Neutrophils | [address], | | | | | | [place] [address] | | | | + + + + + + | Absolute | 1.2Comment: Testing | 1.0 - 3.9 K/uL | EXTERNAL | | | Lymphocytes | performed at [facility], [address] | | LAB | | | | [address], | | | | | | [place] [address] | | | | + + + + + + | Absolute | 1.3 (H)Comment: Testing | 0 - 0.8 K/uL | EXTERNAL | | | Monocytes | performed at [facility], [address] | | LAB | | | | [address], | | | | | | [place] [address] | | | | + + + + + + | Absolute | 0.0Comment: Testing | 0 - 0.5 K/uL | EXTERNAL | | | Eosinophils | performed at [facility], [address] | | LAB | | | | [address], | | | | | | [place] [address] | | | | + + + + + + | Absolute | 0.0Comment: Testing | 0 - 0.1 K/uL | EXTERNAL | | | Basophils | performed at [facility], [address] | | LAB | | | | [address], | | | | | | [place] [address] | | | | + + + [...] | | | | | [place] [address] | | | | + + + + + + | K | 4.6Comment: Testing | 3.5 - 4.9 | EXTERNAL | | | | performed at [facility], [address] | mmol/L | LAB | | | | [address], | | | | | | [place] [address] | | | | + + + + + + | Cl | 103Comment: Testing | 99 - 109 mmol/L | EXTERNAL | | | | performed at [facility], [address] | | LAB | | | | [address], | | | | | | [place] [address] | | | | + + + + + + | CO2 | 28Comment: Testing | 23 - 32 mmol/L | EXTERNAL | | | | performed at [facility], [address] | | LAB | | | | [address], | | | | | | [place] [address] | | | | + + + + + + | Anion Gap | 8Comment: Testing | 5 - 20 mmol/L | EXTERNAL | | | | performed at [facility], [address] | | LAB | | | | [address], | | | | | | [place] [address] | | | | + + + + + + | Glucose, | 106 (H)Comment: Testing | 65 - 99 mg/dL | EXTERNAL | | | Fasting | performed at [facility], [address] | | LAB | | | | [address], | | | | | | [place] [address] | | | | + + + + + + | BUN | 21Comment: Testing | 8 - 25 mg/dL | EXTERNAL | | | | performed at [facility], [address] | | LAB | | | | [address], | | | | | | [place] [address] | | | | + + + + + + | Creatinine | 0.87Comment: Testing | 0.50 - 1.00 | EXTERNAL | | | | performed at [facility], [address] | mg/dL | LAB | | | | [address], | | | | | | [place] [address] | | | | + + + + + + | BUN/Creatin | 24Comment: Testing | | EXTERNAL | | | ine Ratio | performed at [facility], [address] | | LAB | | | | [address], | | | | | | [place] [address] | | | | + + + + + + | Calcium | 8.5Comment: Testing | 8.5 - 10.2 | EXTERNAL | | | | performed at [facility], [address] | mg/dL | LAB | | | | [address], | | | | | | [place] [address] | | | | + + + [...] | | | | | | at [facility], [address] | | | | | | [facility], | | | | | | [place] [address] | | | | + + + [...] Conversion - 01/14/2019 11:10 AM PDT THEA CARMONA14/[id number] C-ARM | | FLUORO OVER 1 HOUR03/29/2014 [...] LAB | | | | Blvd;[place] [address] | | | | + + + + + + | Antibody | NEGATIVE | | EXTERNAL | | | Screen | | | LAB | | + + + + + + | Antibody | Testing performed at | | EXTERNAL | | | Screen | [facility];[address] | | LAB | | | | [address];[place] [address] | | | | + + + + + + | BB BAND | [id number] | | EXTERNAL | | | | | | LAB | | + + + + + + | BB BAND | Testing performed at | | EXTERNAL | | | | [facility];[address] | | LAB | | | | [address];[place] [address] | | | | + + + [...]
--- OUTSIDE RECORDS SUMMARY | ~2019-12-28 | XMS | Encounter Summary ---
Demographics + + + | Address | [address] | | | [place] [address] | + + + | Home Phone [...] [place] | | | | | [address] | | + + + + + Care Team Providers + +------+ + | Care Quartz Orientator Name | Role | Phone | + [...] | | | | shoulder | [place] [address] | [place] | | | | | | Phone: | [address] | | | | | | [phone] | Phone: | | | | | | Fax: | [phone] | | | | | | [phone] | Fax: | | | | | | | [phone] | +--------+--------+ + + + + Encounter Details +--------+---------+ + + + | Date | Type | Department | Care Team | Description | +--------+---------+ + + + | 12/30/ | Office | [facility] | Rodney Worthy | Impingement syndrome | | 2019 | Visit | ORTHOPEDIC SURGERY | MD [address] | of right shoulder | | | | [address] | [facility] | (Primary Dx); | | | | [place] | [place] [address] | Impingement syndrome | | | | [address] | [phone] | of left shoulder | | | | [phone] | | | +--------+---------+ + + + [...] Instructions Patient Instructions Rodney Worthy MD - 12/30/2018 2:30 PM PDT [...] strength Fever or chills Date Last Reviewed: 12/31/201519992947-6796 [employer]. [address] [place] [address]. All righ ts reserved. This information is not intended as a substitute for professional medical care. Always follow your healthcare professional's instructions. documented in this encounter Progress Notes Rodney Worthy MD - 12/30/2018 2:30 PM PDTFormatting of this note might be dif ferent from the original. [facility] RETURN CLINIC VISIT Pt. Name/Age/: Thea [...] disease Arthritis COPD (chronic obstructive pulmonary disease) ([facility]) on albuterol Depression HONG (dyspnea on exertion) Full dentures upper & lower GERD (gastroesophageal reflux disease) Hyperlipidemia on simvastatin Hypertension on clonidine and lisinopril Hypothyroidism Obesity MARCE (obstructive sleep apnea) no CPAP Osteoporosis Pneumonia 2008 hospitalized 5 days Recurrent squamous cell carcinoma of lung ([facility]) 07/11/[address] and RUL nodule Rheumatoid arthritis(714.0) on prednisone and methotrexate, Dr. Lewis, [place] Spinal stenosis has tried cortisone injections Spondylolisthesis of cervical region Sputum culture positive for Scopulariopsis species Squamous cell carcinoma of lung ([facility]) 07/2013 right lower lobe Stroke ([facility]) 2006 Stroke ([facility]) 2007 left sided weakness Upper GI bleed 06/2014 admitted [place] Wears dentures Past Surgical History: Procedure Laterality Date BACK SURGERY 03/2014 BLADDER SUSPENSION BRONCHOSCOPY 07/11/2014 EBUS with right hilar LN biopsy, [facility] Dr. 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 Considering the nature of the cody t's condition, decision was made to proceed with [...] She may call before that visit to re upro an MRI if she is not doing well.. Follow-up: Return in about 2 months (around 03/01/2019). with no x-ray Portions of this report were transcribed using voice recognition software. Every effort wa s made to ensure accuracy; however, inadvertent computerized artists' booking representative errors may be pre sent. I [...] HOSPITAL | | | | | | [place] [address] | | | | | | [phone] | | | | | | | [...]
--- OUTSIDE RECORDS SUMMARY | ~2019-12-28 | XMS | Encounter Summary ---
Demographics + + + | Address | [address] | | | [place] [address] | + + + | Home Phone [...] [place] | | | | | [address] | | + + + + + Care Team Providers + +------+ + | Care Leather Parts Matcher Name | Role | Phone | + +------+ + | Davis Ivan MD | PCP | | + +------+ + Reason for Visit +--------+ + | Reason | Comments | +--------+ + | COPD | 3 month follow up | +--------+ + Encounter Details +--------+---------+ + + + | Date | Type | Department | Care Team | Description | +--------+---------+ + + + | 06/08/ | Office | [facility] | [place], | Chronic obstructive | | 2016 | Visit | PULMONARY [address] | Ayana Looney MD | pulmonary disease | | | | [place], | | with acute | | | | [place] [address] | | exacerbation (HCC) | | | | [phone] | | (Primary Dx); | | | | | | Chronic obstructive | | | | | | pulmonary disease, | | | | | | unspecified COPD | | | | | | type (HCC); MARCE | | | | | | (obstructive sleep | | | | | | apnea); Recurrent | | | | | | squamous cell | | | | | | carcinoma of lung, | | | | | | right (HCC); | | | | | | Radiation | | | | | | pneumonitis ([facility]) | +--------+---------+ + + + [...] | Tobacco Cessation: Counseling Given: No | | Comments: using e cigarettes | + [...] + + + | Blood Pressure | 124/60 | 06/08/2015 2:05 PM | | | | | PST | | + + + + + | Pulse | 82 | 06/08/2015 2:05 PM | | | | | PST | | + + + + + | Temperature | - | - | | + + + + + | Respiratory Rate | - | - | | + + + + + | Oxygen Saturation | 94% | 06/08/2015 2:05 PM | | | | | PST | | + + + + + | Inhaled Oxygen | - | - | | | Concentration | | | | + + + + + | Weight | 77.6 kg (171 lb) | 06/08/2015 2:05 PM | | | | | PST | | + + + + + | Height | 157.5 cm (5' 2") | 06/08/2015 2:05 PM | | | | | PST | | + + + + + | Body Mass Index | 31.28 | 06/08/2015 2:05 PM | | | | | PST | | + + + + + documented in this encounter Patient Instructions Patient Instructions Ayana Taylor MD - 06/08/2015 2:51 PM PSTDiscontinue the Tud orza. Start Duonebs 1 nebulizer 4 times daily. Stay on the Breo once daily. Continue the albuterol nebulizers, but only as needed, up to an additional 2 times a day. Take prednisone as follows: Start 4 tablets by mouth for 3 days, then 3 tablets by mouth fo r three days, then 2 tablets by mouth for 3 days, then resume 1 tablet by mouth daily. Take doxycycline 100mg twice daily for 10 days. Do an overnight oxygen test through [facility]. Call the [employer] before yo u pick it up to make sure they have a box available. You will garbage pick up man a box at the [employer] company. Do the test on room air. Wear the finger probe through the night and then return the box for a download the next day. ADVANCED SLEEP HYGIENE FOR THOSE WITH INSOMNIA 1) Awaken at nearly the same time ever day (less than 2 hours difference between work/schoo l days and off/weekend days). Don't sleep in. 2) Obtain as much bright light as possible during your desired waking hours. 3) Minimize or preferably eliminate caffeine (coffee, tea, energy drinks, soft drinks, etc. ) and absolutely no caffeine more than 6 hours after wake time. 4) Eliminate or minimize smoking and alcohol consumption, especially near bedtime. 5) Do not nap during the daytime; this will interfere with your night-time sleep. 6) Darken your environment an hour or two before bedtime. 7) Consider "unwinding" and "closing" your day about an hour before your anticipated bedtim e. 8) Go to bed only when you are sleepy and no earlier than 7-9 hours before your anticipated wake time. Turn the lights down, take a warm bath, minimize computer and TV time, and do ac tivities that are not stimulating. 9) Use your bedroom only for sleeping. 10) Only sleep in your bedroom - do not sleep in other areas of your house. 11) Between bedtime and wake time the only things you are allowed to do is to sleep in your bedroom or to sit comfortably in another room, in the dark, doing nothing. Do not watch TV, work on the computer, send text messages, do housework, or problem solve between bedtime an d wake time. 12) If you find that you aren't asleep, get up out of bed (keep your environment dark with just low level light, so that you won't fall) and go to another room. Sit quietly in the tracy k until you are sleepy and then go back to bed. You may repeat this as many times as necessa ry. But you must awaken at the same time every day, regardless of how you slept that night. 13) If you continue to sleep poorly, consider going to bed a little later each night (but a waken at the same time every morning and don't nap) until you are sleeping through the major ity of the time between bed time and wake time. documented in this encounter Progress Notes Ayana Taylor MD - 06/08/2015 2:10 PM PSTFormatting of this note might be differe nt from the original. Pulmonary Follow Up HPI Thea Carmona is a 70 y.o. female patient of Davis Ivan MD here today for follow up of COPD. At their last visit, we changed her Symbicort to Breo. Since their last visit she feels lik e she has been doing okay. She feels like she has had a cold for the last few days, as she h as had a cough, and just generally felt blah. She is not certain if she has had a temperatur e as she has not taken it. She is bringing up green mucous when she coughs. She is currently on a regimen of Breo 1 inhalation once daily and Tudorza one inhalation on ce daily. She feels like the Breo helps her quite a bit. She is not certain how much the Tud orza helps her. She does feel like the Tudorza gets in to her lungs easily and she has it cl ick and turn from green to red. She has not been using her rescue inhaler. She is using her nebulizer, albuterol, 3-4 times a day. She returns today for routine follow up. Currently she is able to walk 20 feet at her own pace on level ground. She is not exercisin g regularly. She is fairly busy with housework. She had not been coughing chronically before she got sick this time. Her cough right now sh e describes as fairly acute. She has been evaluated for nocturnal oxygen and does not need to use it. She was last teste d about a year ago. She does have symptoms of heartburn or reflux. She gets this on occasion. She is taking bot h omeprazole and ranitidine. She does note a fair bit of insomnia. She does sleep during the daytime, and leaves her TV on all day long. She wakes up often at night, and then she eats when she wakes up. Past Medical History Past Medical History Diagnosis Date COPD (chronic obstructive pulmonary disease) ([facility]) on albuterol Spondylolisthesis of cervical region Spinal stenosis has tried cortisone injections Osteoporosis Depression Pneumonia 2009 hospitalized 5 days Rheumatoid arthritis(714.0) ([facility]) 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 Dr. Sierra Tunneled venous port placement N/A 07/28/2014 Procedure: Port Placement; Surgeon: Chalino Chiu MD; Location: [facility] Colonoscopy 06/2014 Endoscopy Hand arthroplasty Left 03/20/2015 Procedure: Left 1st C.M.C. 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 60 tablet 3 Respiratory Therapy Supplies [facility] ResMed S9 auto CPAP [...] facility-administered encounter medications on file as of 06/08/2015. Review of Systems: General: [x]Weight loss/gain (over 10 lbs) - gain [x]Fever/chills/sweats - sweats from late afternoo n to evening []Night sweats EENT: []Hearing loss []Vision loss/change []Sinus congestion/nasal drainage []Nosebleeds [] Hoarseness Cardiac: []Chest pain []Palpitations/heart racing [x]Swelling of legs/ankles []Waking up at night short of breath []Difficulty sleeping flat Gastrointestinal: []Nausea/vomiting []Difficulty swallowing []Heartburn/acid reflux []Loss of appetite []Ab dominal pain Urologic: []Blood in urine []Frequent urination at night []Burning/painful urination []Difficulty wit h urination Objective BP 124/60 mmHg | Pulse 82 | Ht 1.575 m (5' 2") | Wt 77.565 kg (171 lb) | BMI 31.27 kg/m2 | SpO2 94% | ? No RA General Appearance: Alert, [...] use, breath sounds are diminished bilaterally with diffuse whe ezes, no wheezes, crackles or rhonchi Chest Wall: No deformity Heart: Regular rate and rhythm, no murmur, rub or gallop Abdomen: Soft, non-tender, non-distended Extremities: No cyanosis, clubbing, 1+ bilateral lower extremity edema Pulses: Radial pulses 2+ and symmetric Skin: Warm and dry Lymph nodes: Cervical and supraclavicular nodes normal Data: Chest CT scan done March 28, 2015 was reviewed and interpreted in clinic today. It shows reduction in the right hilar mass, as well as associated linear densities radiating outwards from this. There is some right lower lobe mucous plugging. Lokesh Park's notes were reviewed in clinic today. Immunization History Administered Date(s) Administered INFLUENZA, HIGH DOSE SEASONAL (ADULT) 03/02/2015 INFLUENZA, TRIVALENT PRESERVATIVE FREE (PED/ADOL/ADULT) 03/22/2013, 02/15/2014 PNEUMOCOCCAL CONJUGATE 13-VALENT (PCV13) 07/14/2014 PNEUMOCOCCAL POLYSACCHARIDE 23-VALENT (PPSV23) 03/01/2011 Assessment ICD-10-CM ICD-9-CM 1. Chronic obstructive pulmonary disease with acute exacerbation ([facility]) J44.1 491.21 Recent symptoms of exacerbation. We will treat with antibiotics and steroids. 2. Chronic obstructive pulmonary disease, unspecified COPD type ([facility]) J44.9 496 Did not fee l that she improved with use of Tudorza, so we will try putting on 4 times daily Duonebs. In additon, she is due for repeat nocturnal oximetry testing. Overnight oximetry, room air 3. MARCE (obstructive sleep apnea) G47.33 327.23 Mild, and not on CPAP. 4. Recurrent squamous cell carcinoma of lung, right ([facility]) C34.91 162.9 This appears stable currently, without recurrence. 5. Radiation pneumonitis ([facility]) J70.0 508.0 S/p treatment with steroids. She has some residu al scarring and no signs of active disease. Plan 1.Discontinue the Tudorza. 2. Start Duonebs 1 nebulizer 4 times daily. 3. Stay on the Breo once daily. 4. Continue the albuterol nebulizers, but only as needed, up to an additional 2 times a day . 5. Prednisone 40mg tapering dose. 6. Take doxycycline 100mg twice daily for 10 days. 7. Check overnight oximetry on room air. She was advised to call if new pulmonary symptoms were to develop. Return to clinic in 3 months, or sooner with concerns. CC: Davis Ivan MD Portions of this report were transcribed using voice recognition software. Every effort wa s made to ensure accuracy; however, inadvertent computerized panel wirer errors may be pre sent. documented in this encounter Plan of Treatment +--------+---------+ + + + | Date | Type | Specialty | Care Team | Description | +--------+---------+ + + + | 03/06/ | Office | Rheumatology | Santosh Sumner, | | | 2019 | Visit | | [address] [address] | | | | | | [facility] | | | | | | [place] [address] | | | | | | [phone] | | | | | | | | +--------+---------+ + + + + + +--------+ + + | Name | Type | Priori | Associated Diagnoses | Order Schedule | | | | ty | | | + + +--------+ + + | Overnight oximetry, | Respiratory | Routin | Chronic | Expected: | | room air | Care | e | obstructive | 06/08/2015, Expires: | | | | | pulmonary disease, | 06/07/2016 | | | | | unspecified COPD | | | | | | type (HCC) | | + + +--------+ + + documented as of this encounter Visit Diagnoses + + | Diagnosis | + + | Chronic obstructive pulmonary disease with acute exacerbation (HCC) - Primary | | Obstructive chronic bronchitis with exacerbation | + + | Chronic obstructive pulmonary disease, unspecified COPD type (HCC) | + + | MARCE (obstructive sleep apnea) Obstructive sleep apnea (adult) (pediatric) | + + | Recurrent squamous cell carcinoma of lung, right (HCC) | + + | Radiation pneumonitis (HCC) Acute pulmonary manifestations due to radiation | + + documented in this encounter
--- OUTSIDE RECORDS SUMMARY | ~2019-12-28 | XMS | Encounter Summary ---
Demographics + + + | Address | [address] | | | [place] [address] | + + + | Home Phone [...] [place] | | | | | [address] | | + + + + + Care Team Providers + +------+ + | Care Service Consultant Name | Role | Phone | [...] | | Services | | Squamous | Claudia, | MD Adelita | | | Required | | cell | Ayana Looney, | Need updated | | | | | carcinoma | [address] | address | | | | | lung (HCC) | [address] | | | | | | | [place], | | | | | | | [place] [address] | | +--------+ + + + + + Reason for Visit +---------+--------+ + | Reason | Onset | Comments | | | Date | | +---------+--------+ + | Results | 08/12/ | PET Scan | | | 2013 | | +---------+--------+ + Encounter Details +--------+ + + + + | Date | Type | Department | Care Team | Description | +--------+ + + + + | 08/12/ | Telephone | [facility] [place] | [place], | Results (PET Scan) | | 2013 | | PULMONARY [address] | Ayana Looney MD | | | | | [place], | | | | | | [place] [address] | | | | | | [phone] | | | +--------+ + + + [...] Telephone Encounter - Sara Evans RN - 08/15/2013 3:30 PM PDTCalled Thea and willie parsons her that she is scheduled with Dr Lu on Thursday08/17/13 and is to check in at 2:45 pm. elephone Encount er - Viki Mcleod RN - 08/12/2013 12:57 PM PDTMessage relayed to patient, advised referral made to Dr. Lu and I will leave a note for for Thursday to see if referral is appro mariann, as patient wants to schedule appointment as soon as possible. Electronically signed by: Viki Mcleod RN 08/12/2013 13:01 elephone Encounter - Ayana Fernando MD - 08/12/2013 12:24 PM PDTResults are came back overnight. This show s uptake in the area of the nodule and in one lymph node. I would ask that they see the onco logist. They are supposed to be scheduled to see me in follow up to go over in person as arsenio vásquez. I will place an order to see oncology. elephone Encounter - Viki Mcleod RN - 08/12/2013 12:09 PM PDTClement rodríguez and Thea called to inquire if PET scan result is available and were wondering if a ref erral will be needed so they can call and make any necessary appointments. Advised I would c heck with Dr. Taylor and get back to them. documented in this enco unter Plan of Treatment +--------+---------+ + + + | Date | Type | Specialty | Care Team | Description | +--------+---------+ + + + | 03/06/ | Office | Rheumatology | KimbunnySantosh, | | | 2020 | Visit | | [address] [address] | | | | | | [facility] | | | | | | [place] [address] | | | | | | [phone] | | | | | | | | +--------+---------+ + + + + + +--------+ + + | Name | Type | Priori | Associated Diagnoses | Order Schedule | | | | ty | | | + + +--------+ + + | * [facility] Outpatient | Routin | Squamous [...]
--- OUTSIDE RECORDS SUMMARY | ~2019-12-28 | XMS | Encounter Summary ---
Demographics + + + | Address | [address] | | | [place] [address] | + + + | Home Phone [...] [address] | | | | | [address] | | + + + + + Care Team Providers + +------+ + | Care Lending Advisor Name | Role | Phone | + +------+ + | Davis Ivan MD | PCP | | + +------+ + Reason for Visit +--------+--------+ + | Reason | Onset | Comments | | | Date | | +--------+--------+ + | Other | 11/04/ | | | | 2015 | | +--------+--------+ + Encounter Details +--------+ + + + + | Date | Type | Department | Care Team | Description | +--------+ + + + + | 11/04/ | Telephone | [facility] | Vivian, | Other | | 2015 | | [facility] | Lokesh Gramajo MD [address] | | | | | [facility] [address] | [facility] | | | | | [address] [place] [place] | [address] [place], [place] | | | | | [place] [address] | [id number] | | | | | [phone] | | | +--------+ + + + [...] Telephone Encounter - Fern Mansfield RN - 11/05/2015 11:08 AM PDTPatient instructed, she voices understanding. 11 :08 AM PDTTelephone Encounter - Lokesh Park MD - 11/05/2015 10:27 AM PDTOrder for magic mouthwash sent to [facility] elephone Encounter - Fern Mansfield RN - 11/05/2015 9:18 AM PDTCall returned: raw tongue started about four days ago, does not have any open sores. Has tried peroxide x 1, soda and salt rinses used three times daily. Uses commercial mouthw ashes twice daily which she will stop now. Denies white on tongue, color of tongue is red. Throat is starting to get sore and has very mild difficulty and pain with swallowing. [facility] [place]. Please advise. elephone Encounter - Papi Leandra Yuliet - 11/05/2015 8:45 AM PDTJotanesha calls to report that he tongue feels as though it is raw. She is wondering if this is from her oral chemo. She can be reached on her home phone. 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
--- OUTSIDE RECORDS SUMMARY | ~2019-12-28 | XMS | Encounter Summary ---
Demographics + + + | Address | [address] | | | [place] [address] | + + + | Home Phone [...] [place] | | | | | [address] | | + + + + + Care Team Providers + +------+ + | Care Conveyor Weigher Operator Name | Role | Phone | [...] Looney MD | | | | | [place], | | | | | | [place] [address] | | | | | | [phone] | | | +--------+--------+ + + + [...] | 2019 | Visit | | [place] [address] | | | | | | [place] | | | | | | [place] [address] | | | | | | [phone] | | | | | | | | +--------+---------+ + + + documented as of this encounter Visit Diagnoses Not on filedocumented in this encounter"
--- OUTSIDE RECORDS SUMMARY | ~2019-12-28 | XMS | Encounter Summary ---
Demographics + + + | Address | [address] | | | [place] [address] | + + + | Home Phone [...] [place] | | | | | [address] | | + + + + + Care Team Providers + +------+ + | Care Loom Mechanic Name | Role | Phone | [...] + + | Closed | Specialty | Human Resources Benefits Specialist | Diagnoses | Taisha, | Nancy, | | | Services | | Rheumatoid | Santosh, | GERDA Rhoades | | | Required | | arthritis, | PA-Avila [address] | [address] | | | | | involving | [place] | [address] | | | | | unspecified | PLACE | [place], [place] | | | | | [facility], | [facility], | [address] Phone: | | | | | unspecified | [place] [address] | [phone] | | | | | rheumatoid | Phone: | | | | | | factor | [phone] | | | | | | presence | Fax: | | | | | | ([facility]) | [phone] | | +--------+ + + + + [...] | Closed | | | Diagnoses | Moncho | Marco | | | | | Rheumatoid | Davis | Rheumatology | | | | | arthritis, | MD [address] | [address] | | | | | unspecified | [address] | [place] | | | | | ([facility]), | [address] | [place] | | | | | Billed out | [place], | [address] | | | | | for M13.00 | [place] | Phone: | | | | | | [address] | [phone] | | | | | | Phone: | Fax: | | | | | | [phone] | [phone] | | | | | | Fax: | | | | | | | [phone] | | +--------+--------+ + + + + Encounter Details +--------+---------+ + + + | Date | Type | Department | Care Team | Description | +--------+---------+ + + + | 02/22/ | Office | [facility] | Santosh Sumner, | Rheumatoid | | 2019 | Visit | RHEUMATOLOGY [address] | PA-C [address] | arthritis, involving | | | | [facility] | [facility] | unspecified site, | | | | [place], [place] | [place] [address] | unspecified | | | | [address] | [phone] | rheumatoid factor | | | | [phone] | | presence (HCC) | | | [...] encounter Patient Instructions Patient Instructions Duyen Gonsalves, Loan Counselor - 02/22/2019 1:50 PM PDTWe hop e that you have experienced exceptional care today and that you found our service to be cour teous and helpful. ? If you have any questions/concerns or need medication refills you can send us a message/r equest using GetYou or by calling our office at [phone]. o If you would like to reach my medical laboratory assistant, Eileen Gonsalves please call [phone] Ext: [phone] ? If you are unable to reach [...] can also look at your results on GetYou. If you are experiencing an emergency, please [...] cancer: She is a 69-year-old woman from [facility] [place] who was previously being diagnosed with mo [...] numbness. Psychiatric/Behavioral: The patient is not nervous/anxious. Santosh Gu PA-C, reviewed the above ROS. Past Medical History: Diagnosis Date Acid reflux disease Arthritis COPD (chronic obstructive pulmonary disease) ([facility]) on albuterol Depression HONG (dyspnea on exertion) Full dentures upper & lower GERD (gastroesophageal reflux disease) Hyperlipidemia on simvastatin Hypertension on clonidine and lisinopril Hypothyroidism Obesity MARCE (obstructive sleep apnea) no CPAP Osteoporosis Pneumonia 2008 hospitalized 5 days Recurrent squamous cell carcinoma of lung ([facility]) 07/11/[address] and RUL nodule Rheumatoid arthritis(714.0) on prednisone and methotrexate, Dr. 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 Laboratory results were reviewed in [facility] as well as chart notes and imaging [...] She is requesting a referral for acupunct ure which I sent in. She states the [...] Procedure Documentation: Procedures documented in this encounter Miscellaneous Notes Assessment & Plan Note - Santosh Sumner PA - 02/22/2019 1:48 PM PDTAssociated Problem(s) : High risk medication useThe patient was counseled regarding medication compliance and rout ine laboratory monitoring due to the potential toxicities with rheumatological medications s uch as but not limited to; hematologic toxicity, hepatotoxicity, renal dysfunction and incre ased risks for infections. Basic Labs Monitored (CBC, [...] rheumatological therapy. There is evidence of COPD P M PDTAssessment & Plan Note - Santosh Sumner PA - 02/22/2019 1:48 PM PDTAssociated Proble m(s): Rheumatoid arthritis The patient returns to the clinic for a follow up appointment. Fernando mares is on 15mg Methotrexate weekly with 1mg Folic Acid daily and doing well. She is requesting a referral for acupuncture which I sent in. She states the last couple weeks she has notice d a few more aches but states it [...] and may produce reversible infertility in men. Kira prather signed by AMANDA Schmidt at 02/22/2019 1:57 PM PDTdocumented in this encounter Plan of Treatment +--------+---------+ + + + | Date | Type | Specialty | Care Team | Description | +--------+---------+ + + + | 03/06/ | Office | Rheumatology | Santosh Sumner, | | | 2019 | Visit | | [address] | | | | | | [facility] | | | | | | [place] [address] | | | | | | [phone] | | | | | | | [...]
--- OUTSIDE RECORDS SUMMARY | ~2019-12-28 | XMS | Encounter Summary ---
Demographics + + + | Address | [address] | | | [place] [address] | + + + | Home Phone [...] [place] | | | | | [address] | | + + + + + Care Team Providers + +------+ + | Care Mechanical Process Engineer Name | Role | Phone | [...] | Procedures | Epi [place]aston | [facility] | | | | | F/U APPT | FRE[place], | [place] | | | | | DR [address]EL[place] | [place] [address] | [address] Phone: | | | | | 06/16/19 | Phone: | [phone] | | | | | | [phone] | Fax: | | | | | | Fax: | [phone] | | | | | | [phone] | | + +--------+ + + + + Encounter Details +--------+---------+ + + + | Date | Type | Department | Care Team | Description | +--------+---------+ + + + | 12/11/ | Office | [facility] | Eveline Castillo | Chronic obstructive | | 2020 | Visit | PULMONARY [address] | MD Raul [address] | pulmonary disease | | | | [place], | [address] | with acute | | | | [place] [address] | [place] [address] | exacerbation (HCC) | | | | [phone] | [phone] | (Primary Dx); | | | | | | Dyspnea on exertion | +--------+---------+ + + + Social [...] encounter Progress Notes Eveline Castillo MD - 12/12/2019 3:15 PM PDT Subjective: Thea Carmona is a 74 y.o. female who presents to the clinic with her with a chief complaint of Follow-up HPI 74 year old female with past medical historyRLLsquamous cell carcinoma status post righ t lower lobectomyandchemoradiation therapy, rheumatoid arthritison methotrexate and pr ednisone, COPD, history of pulmonary embolism who presents for follow-up. Patient last seen in pulmonary clinic 06/16/2019. - In the interim, she reports worsened SOB with exertion. She is not able to walk very far before becoming SOB. - Patient has a cough productive of brown sputum. She has increased sputum production sonny red to her usual. Baseline sputum usually light green. - Patient just completed 7 days of Augmentin for sinus infection but notes that increase in SOB and sputum production occurred even before the onset of her sinus infection. - No wheezing. For her regimen, she does Duoneb 2-4 times and budesonide twice daily. Patient takes pr ednisone 5 mg twice daily. - She is also on Roflumilast 500mcg. Prior to starting Roflumilast, she had 2 exacerbations per year. - No fever or chills. Patient's medications, allergies, past medical, surgical, social and family histories were obtained and reviewed as appropriate. Review of Systems Constitutional: Negative for chills and fever. HENT: Negative for congestion and postnasal drip. Eyes: Negative for discharge and itching. Respiratory: See HPI Cardiovascular: Negative for chest pain and leg swelling. Gastrointestinal: Negative for abdominal pain, constipation and diarrhea. Endocrine: Negative for cold intolerance and heat intolerance. Genitourinary: Negative for dysuria and frequency. Musculoskeletal: Negative for arthralgias and back pain. Skin: Negative for pallor and rash. Allergic/Immunologic: Negative for environmental allergies and food allergies. Neurological: Negative for dizziness and headaches. Psychiatric/Behavioral: Negative for agitation and behavioral problems. Objective: Vitals: 12/12/19 1510 BP: 134/78 Pulse: 92 Resp: 22 Temp: 36.6 C (97.9 F) Physical Exam Constitutional: General: She is not in acute distress. Appearance: Normal appearance. She is not toxic-appearing. HENT: Head: Normocephalic and atraumatic. Right Ear: External ear normal. Left Ear: External ear normal. Nose: Nose normal. No congestion. Eyes: Extraocular Movements: Extraocular movements intact. Conjunctiva/sclera: Conjunctivae normal. Pupils: Pupils are equal, round, and reactive to light. Neck: Musculoskeletal: Neck supple. No neck rigidity. Cardiovascular: Rate and Rhythm: Normal rate and regular rhythm. Heart sounds: Normal heart sounds. No murmur. No friction rub. No gallop. Pulmonary: Effort: Pulmonary effort is normal. No respiratory distress. Breath sounds: Wheezing (expiratory wheeze in the bases) present. No rales. Abdominal: General: Abdomen is flat. Bowel sounds are normal. Palpations: Abdomen is soft. Musculoskeletal: Right lower leg: No edema. Left [...] decreased by 15%, DLCO decreased by 26%. Ambulatory pulse oximetry, 12/12/2019: RA sittin% RA walking 96%, HR 117 Assessment & Plan: 1. Chronic obstructive pulmonary disease with acute exacerbation (HCC) azithromycin (ZITHR OMAX) 250 mg tablet predniSONE (DELTASONE) 20 mg tablet COPD (FEV1 72%, DLCO 41%, gold 2, group D) - Today with evidence of acute exacerbation. Although patient just completed 7 day course o f augmentin for sinusitis, she has increased SOB and increased sputum production. - Start azithromycin and prednisone, 40mg daily for 7 days, then resume chronic dose of 5mg BID. - Encouraged patient to use duonebs more consistently. - Continue duonebs 3-4 times daily, budesonide nebs twice daily. - Patient on prednisone 5 mg BID and Roflumilast chronically. - Patient is on maximal therapy for COPD. - Advised patient to follow up with her PCP regarding electric scooter. Dyspnea on exertion - No need for supplemental oxygen with exertion as seen on ambulatory pulse oximetry today. - Patient seems to fatigue easily. There is likely and underlying component of deconditioni ng. - Continue follow up with oncology for locally recurrent and regionally metastatic right sq uamous cell lung cancer 30 minutes spent face to face with the patient with more than half the time spent counselin g regarding exacerbation treatment, antibiotics, nebulizer treatments. See AVS for patient instructions. Diagnosis and plan including medications and side effects were discussed with the patient a nd information handout was given. Patient voices understanding of the plan and all questions were answered. No follow-ups on file. documented in this encounter Plan of Treatment +--------+---------+ + + + | Date | Type | Specialty | Care Team | Description | +--------+---------+ + + + | 03/06/ | Office | Rheumatology | Santosh Sumner, | | | 2019 | Visit | | [address] | | | | | | [facility] | | | | | | [place] [address] | | | | | | [phone] | | | | | | | | +--------+---------+ + + + documented as of this encounter Visit Diagnoses + + | Diagnosis | + + | Chronic obstructive pulmonary disease with acute exacerbation (HCC) - Primary | | Obstructive chronic bronchitis with exacerbation | + + | Dyspnea on exertion Other dyspnea and respiratory abnormality | + + documented in this encounter
--- OUTSIDE RECORDS SUMMARY | ~2019-12-28 | XMS | Encounter Summary ---
Demographics + + + | Address | [address] | | | [place] [address] | + + + | Home Phone [...] [place] | | | | | [address] | | + + + + + Care Team Providers + +------+ + | Care Party Plan Sales Agent Name | Role | Phone | + [...] + + | 12/22/ | Office | [facility] | Giuliano Padilla, | Postop check | | 2019 | Visit | ORTHOPEDIC SURGERY | [address] | (Primary Dx) | | | | [address] | [place] | | | | | [place] | [address] | | | | | [address] | | | | | | [phone] | | | +--------+---------+ + + + [...] | 2020 | Visit | | [address] | | | | | | [place] [facility] | | | | | | [place] [address] | | | | | | [phone] | | | | | | | | +--------+---------+ + + + documented as of this encounter Visit Diagnoses + + | Diagnosis | + + | Postop check - Primary Follow-up examination, following unspecified surgery | + + documented in this encounter"
--- OUTSIDE RECORDS SUMMARY | ~2019-12-28 | XMS | Encounter Summary ---
Demographics + + + | Address | [address] | | | [place] [address] | + + + | Home Phone [...] [place] | | | | | [address] | | + + + + + Care Team Providers + +------+ + | Care Screen Printing Stencil Preparer Name | Role | Phone | [...] | | | | | rheumatoid | [address] | [place] [address] | | | | | factor of | [place], | Phone: | | | | | right hand | [place] | [phone] | | | | | without | [address] | Fax: | | | | | organ or | Phone: | [phone] | | | | | systems | [phone] | | | | | | involvement | Fax: | | | | | | ([facility]) | [phone] | | +--------+--------+ + + + + Encounter Details +--------+---------+ + + + | Date | Type | Department | Care Team | Description | +--------+---------+ + + + | 09/23/ | Office | [facility] [place] | Giuliano Padilla, | Osteoarthritis of | | 2018 | Visit | ORTHOPEDIC SURGERY | MD [address] | first | | | | [address] [place] | [place] | carpometacarpal | | | | [place] | [address] | (CMC) joint of one | | | | [address] | | hand (Primary Dx) | | | | [phone] | | | +--------+---------+ + + + [...] to pursue this documented in this encounter Miscellaneous Notes Addendum Note - Giuliano Padilla MD - 09/23/2017 1:00 PM PDT Addended by: GIULIANO PADILLA on: 10/01/2017 07:20 Modules accepted: Orders ddendum Note - Joon Garces Cert MA - 09/23/2017 1:00 PM PDT Addended by: JOON RASHID on: 09/23/2017 17:06 Modules accepted: Orders docume nted in this encounter Plan of Treatment +--------+---------+ + + + | Date | Type | Specialty | Care Team | Description | +--------+---------+ + + + | 03/06/ | Office | Rheumatology | Santosh Sumner, | | | 2019 | Visit | | [address] | | | | | | [place] | | | | | | [place] [address] | | | | | | [phone] | | | | | | | | +--------+---------+ + + + documented as of this encounter Visit Diagnoses + + | Diagnosis | + + | 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
--- OUTSIDE RECORDS SUMMARY | ~2019-12-28 | XMS | Encounter Summary ---
Demographics + + + | Address | [address] | | | [place] [address] | + + + | Home Phone [...] | Author | [facility] | | | and [place] | + + + | Organization | [facility] | | [...] [place] | | | | | [address] | | + + + + + Care Team Providers + +------+ + | Care Optimization Manager Name | Role | Phone | + +------+ + | Caitlin Chino MD | PCP | | + +------+ + Encounter Details +--------+ + + + + | Date | Type | Department | Care Team | Description | +--------+ + + + + | 02/25/ | Orders Only | [facility] | Santosh Sumner, | Decreased GFR | | 2019 | | RHEUMATOLOGY [address] | PA-C [address] | (Primary Dx) | | | | [place] | [facility] | | | | | [place], [place] | [place] [address] | | | | | [address] | [phone] | | | | | [phone] | | | +--------+ + + + [...] | 2019 | Visit | | [address] | | | | | | [facility] | | | | | | [place] [address] | | | | | | [phone] | | | | | | | [...]
--- OUTSIDE RECORDS SUMMARY | ~2019-12-28 | XMS | Encounter Summary ---
Demographics + + + | Address | [address] | | | [place] [address] | + + + | Home Phone [...] [place] | | | | | [address] | | + + + + + Care Team Providers + +------+ + | Care Android Software Engineer Name | Role | Phone | [...] | | | 2019 | | [address] [facility] | [place] | | | | | [place], [place] | [facility] | | | | | [address] | [place] [address] | | | | | [phone] | [phone] | | | | | | | [...] | 2020 | Visit | | [address] | | | | | | [facility] | | | | | | [place] [address] | | | | | | [phone] | | | | | | | [...] + + + + | Non- | 4.25 | 3.70 - 5.10 | EXTERNAL | | | Red Blood | | 10*6/uL | LAB | | | Cells | | | | | | Counted | | | | | + + + + + + | Hemoglobin | 12.5 | 11.3 - 15.5 | [...] | | | | using the MDRD [facility] | | | | | | traceable [...]
--- OUTSIDE RECORDS SUMMARY | ~2019-12-28 | XMS | Encounter Summary ---
Demographics + + + | Address | [address] | | | [place] [address] | + + + | Home Phone [...] [place] | | | | | [address] | | + + + + + Care Team Providers + +------+ + | Care Steam Finisher Name | Role | Phone | [...] + + | 09/20/ | Hospital | [facility] | Adelita Lu MD | Anxiety (Primary | | 2015 | Encounter | [facility] | Need updated | Dx); Chronic pain; | | | | [facility] [address] | address | COPD (chronic | | | | [address] [place] | | obstructive | | | | [place] [address] | | pulmonary disease) | | | | [phone] | | ([facility]); Depression; | | | | | | Spinal stenosis in | | | | | | cervical region; | | | | | | Squamous cell | | | | | | carcinoma of lung, | | | | | | stage I, unspecified | | | | | | laterality ([facility]); | | | | | | Recurrent squamous | | | | | | cell carcinoma of | | | | | | lung, unspecified | | | | | | laterality ([facility]) | +--------+ + + + + Social [...] | 2 | 08/22/19 | | | (TESSALON PERLES) | mouth 3 times daily | [...] Lu MD - 09/20/2014 2:27 PM PDT .[facility] Hem-Onc Progress Note [facility] Patient name:Thea Carmona : 1945 Age: 69 y.o. CSN: [id number] Date of Service: 09/20/2014 Identifying Statement: Thea Carmona is a 69 y.o. female from [facility] with clinical stage II, non-small cell [...] lewis 2.CT-guided biopsy by interventional radiology at [facility] of the right lung massshows squamous [...] by Dr. Beltran , thoracic surgeon at [facility] for consideration of broncho [...] COPD (chronic obstructive pulmonary disease) ([facility]) on albuterol Spondylolisthesis of cervical region Spinal stenosis has tried cortisone injections Osteoporosis Depression Pneumonia 2009 hospitalized 5 days Rheumatoid arthritis(714.0) ([facility]) on prednisone and methotrexate, Dr. 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 RESPIRATORY THERAPY SUPPLIES [facility] ResMed S9 auto CPAP 5-9 cm H2O. Heater and Humidifier . All necessary supplies. AHI 11.6. Diagnosis Code(s)327.23, also has co morbid hypertension , history of stroke. Length of Need 99 months. Please send order to [facility]. RESPIRATORY THERAPY SUPPLIES [employer] Respironics autotitrating CPAP at 5-9 cm H2O [...] 2 systemic rounds of full dose chemotherapy wi carboplatin and Taxol Total time face to face discussion with the patient and family was 15 minutes, more than 5 0% of the time was spent counseling and coordination of care. Portions of this chart may have been created with [employer] voice recognition software. Occasi onal wrong-word or [...] [place] | | | | | | [place] [address] | | | | | | [phone] | | | | | | | [...]
--- OUTSIDE RECORDS SUMMARY | ~2019-12-28 | XMS | Encounter Summary ---
Demographics + + + | Address | [address] | | | [place] [address] | + + + | Home Phone [...] [place] | | | | | [address] | | + + + + + Care Team Providers + +------+ + | Care Dry Room Operator Name | Role | Phone [...] | | | hand, | | [place] [address] | | | | | unspecified | | Phone: | | | | | osteoarthrit | | [phone] | | | | | is type | | Fax: | | | | | Osteoarthrit | | [phone] | | | | | is of [...] | | | | | [address] | [place] | | | | | [place] | [address] | | | | | [address] | | | | | | [phone] | | | +--------+ + + + [...] +----+---+ + + | | 1 | [place] | | | | 2 | 43-degrees | | | | 4 | | | | | 3 | | | +----+---+ + + | | 1 | | | | | 3 | | | | | 0 | | | | | 4 | | | +----+---+ + + | | 1 | [place] off | | | | 3 | [...] encounter OR Notes Anesthesia Postprocedure Evaluation - Dianna Rankin MD - 03/20/2015 1:35 PM PDT ANESTHESIA POSTANESTHESIA EVALUATION Thea Carmona 69 y.o. female 1945 [id number] Procedure(s) Left 1st C.M.C. Arthroplasty (Left Hand) Filed Vitals: 03/20/15 1000 03/20/15 1332 BP: 164/73 136/69 Pulse: 72 76 Temp: 36.5 C (97.7 F) 36.4 C (97.5 F) Resp: 16 16 SpO2: 96% 96% Cooperates? Yes Mental Status Performs simple tasks. Respiratory Satisfactory - Airway patent (self maintained). Cardiovascular Satisfactory Blood pressure and heart rate acceptable Temperature Satisfactory Pain Satisfactory N/V Control Satisfactory Hydration Satisfactory No signs of dehydration Complications None apparent Electronically signed by Dianna Rankin MD 03/20/2015 13:35 [facility] nesthesia Procedure No margarita - Dianna Rankin MD - 03/20/2015 12:51 PM PDTAssociated Order(s): ANESTHESIA BLOCKProced ure Note Axillary Procedure: Axillary Block Left, Approach: Lateral Technique used to guide the needle to the proximity of the nerve, appropriate space, or fas cial plane: Ultrasound Guided. Single-Shot, Incremental Injection Incremental Injection Volu me: 5. Ultrasound image(s) saved in patient's chart. Pre-procedure Events: Patient Identified, Pre-op Evaluation Completed, Airway Assessed, Ris ks and Benefits Discussed, Procedure Consent Obtained and Timeout Performed. Patient Positioning: Supine Prep: ChloraPrep used. Skin Local Anesthetic: Lidocaine 1% Needle: 22 G Stimuplex (3.5 in). Ease: Easy Attempts: 1 Note: Negative Blood Aspirated, CSF Return and Paresthesia. Pt met in pre-op area. Chart reviewed and the risks, benefits and options of anesthesia were discussed and questions were answered. Pt agreed to proceed with a axillary nerve block (left) with sedation as the [facility] anesthetic technique. O2 sat monitor placed, iv sedation given, left axilla prepped an d US used to identify the left brachial plexus then 1 percent lidocaine was injected sub-cut . Followed by bhanu-neural injection of 10 ml of .5 percent bupivacaine with 1:200k epi with 10 ml 2 percent mepivacine with frequent negative aspiration. The patient tolerated the pro cedure well without apparent complication. Performed by: Performing Provider: DIANNA RANKIN Flight Director: Gurmeet Sequeira MD, José Miguel Draper RN Electronically Signed by: Dianna Rankin MD ESig date/time: 03/20/2015 12:51 nesthesia Preprocedure Evaluation - Dianna Rankin MD - 03/20/2015 11:19 AM PDTFormatting of this note might be di fferent from the original. ANESTHESIA PREANESTHESIA EVALUATION Thea Carmona 69 y.o. female 1945 [id number] Procedure(s): Left 1st C.M.C. Arthroplasty (Left Hand) Medical history, anesthesia, medications, allergy, NPO status verified histories reviewed. Labs reviewed. Review of Systems / Med History Anesthesia History No anesthesia complications. Cardiovascular (+) hypertension.(-) angina. Pulmonary (+) COPD. (-) sleep apnea. Neurology (+) CVA, chronic pain. Renal Negative except where noted below. Other Negative except where noted below. Cancer (+) lung cancer. Physical Exam Airway MP I, TM >3 FB, Mouth opening >2 FB. Neck: full ROM, extends >30 degrees. Jaw protrusi on normal. Dental ; (+) dentures-lower and dentures-upper. CV Rhythm regular. Rate normal. (-) murmur. Pulm (+) wheezing. Neuro Grossly normal. Anesthesia Plan ASA 3 Type: PNB. Induction: Intravenous. Potential problems: None anticipated. Monitors: Standard ASA monitors. Consent statement:Anesthetic plan, alternatives, risks and benefits discussed with patient. Risks discussed included (but were not limited to): pain, failed or inadequate block, bleed ing, nerve damage. Consenting person understands and agrees to proceed. Electronically Signed by: Dianna Rankin MD [facility] date/time: 03/20/2015 12:10 documented in this enco unter Plan of Treatment +--------+---------+ + + + | Date | Type | Specialty | Care Team | Description | +--------+---------+ + + + | 03/06/ | Office | Rheumatology | Santosh Sumner, | | | 2019 | Visit | | [address] | | | | | | [facility] | | | | | | [place] [address] | | | | | | [phone] | | | | | | | [...] Performing Provider: | | | DIANNA RANKIN Flight Director: Gurmeet Sequeira MDJosé Miguel RN | | | Electronically Signed by: MD Iam Concepciong date/time: | | | 03/20/2015 12:51 | [...] +-------+ +---------+---+---+ +-------+ +---------+---+---+ | Given | 03/20/20 | 100 mcg [...] +---+---+---+ +---------+ +---------+-------+--------+ | New Bag | /20/20 | 100 mLs | 100 | Right | | | 15 10:59 | | mL/hr | Arm | | | AM PDT | | | | +---------+ +---------+-------+--------+ +---+---+ | | | +---+---+ + +-------+ +--------+---+---+ | mepivacaine (PF) (POLOCAINE) 2% | Given | 20 | 10 mLs | | | | [...]
--- OUTSIDE RECORDS SUMMARY | ~2019-12-28 | XMS | Encounter Summary ---
Demographics + + + | Address | [address] | | | [place] [address] | + + + | Home Phone [...] [place] | | | | | [address] | | + + + + + Care Team Providers + +------+ + | Care Speeder Frame Tender Name | Role | Phone | [...] [place] | | | | | | [address] | | | | | | [phone] | | | +--------+ + + + [...] | 2019 | Visit | | [address] | | | | | | [facility] | | | | | | [place] [address] | | | | | | [phone] | | | | | | | | +--------+---------+ + + + documented as of this encounter Visit Diagnoses Not on filedocumented in this encounter"
--- OUTSIDE RECORDS SUMMARY | ~2019-12-28 | XMS | Encounter Summary ---
Demographics + + + | Address | [address] | | | [place] [address] | + + + | Home Phone [...] [place] | | | | | [address] | | + + + + + Care Team Providers + +------+ + | Care All Source Intelligence Analyst Name | Role | Phone | [...] Malignant | MD Adelita | [address] | | | | | neoplasm of | Need | [place], | | | | | main | updated | [place] | | | | | bronchus, | address | [address] | | | | | right (HCC) | | Phone: | | | | | Procedures | | [phone] | | | | | MRI Brain w | | Fax: | | | | | wo Contrast | | [phone] | +--------+--------+ + + + + Reason [...] Malignant | MD Adelita | [address] | | | | | neoplasm of | Need | [place], | | | | | main | updated | [place] | | | | | bronchus, | address | [address] | | | | | right (HCC) | | Phone: | | | | | Procedures | | [phone] | | | | | MRI Brain w | | Fax: | | | | | wo Contrast | | [phone] | +--------+--------+ + + + + Encounter Details +--------+ + + + + | Date | Type | Department | Care Team | Description | +--------+ + + + + | 09/02/ | Hospital | [facility] | Adelita Lu MD | Malignant neoplasm | | 2013 | Encounter | MED CTR MRI [address] | Need updated | of main bronchus, | | | | [address] [place], | address | right (HCC) (Primary | | | | [place] [address] | | Dx); Squamous cell | | | | [phone] | | carcinoma of lung, | | [...] documented as of this encounter Miscellaneous Notes Inpatient Medication Chart - ESTELITA SCAN [facility] - 09/21/2013 12:00 AM PDTElectronically fady d by Capri Hodges at 09/21/2013 12:25 PM PDTPlan of Care - ESTELITA SCAN [facility] - 09/08/2013 12: 00 AM PDT iscellaneous - ONB ASE SCAN CAPRI - 09/08/2013 12:00 AM PDT documented in this encounter Plan of Treatment +--------+---------+ + + + | Date | Type | Specialty | Care Team | Description | +--------+---------+ + + + | 03/06/ | Office | Rheumatology | Santosh Sumner, | | | 2019 | Visit | | [address] | | | | | | [facility] | | | | | | [place] [address] | | | | | | [phone] | | | | | | | [...] | 0.97 | 0.60 - 1.30 | [facility] | | | | | mg/dL | [facility] | | | | | | MEDICAL | | | | | | CENTER - | | | | | | LABORATORY | | + + + + + + | eGFR, | 57 (L)Comment: | >=60 | [facility] | | | non- | GLOMERULAR FILTRATION | mL/min/1.73m2 | [facility] | | | [place]ese | RATE,ESTIMATED | | MEDICAL | | | | mL/min/1.41l7Aocg than | | CENTER - | | [...] + | [facility] | [address] | [place] | [phone] | | [facility] | | [address] | | | - LABORATORY | | | | + + + + + | [facility] | [address] | [place], [place] | | | [facility] | | [address] [place] [address] | | | - LABORATORY | | [...] | | Cells | | M/uL | [facility] | | | | | | MEDICAL | | | | | | CENTER - | | | | | | LABORATORY | | + + + + + + | Hemoglobin | 11.6 | 11.5 - 16.0 | [facility] | | | | | g/dL | [facility] | | | | | [...] + | [facility] | [address] | [place] | [phone] | | [facility] | | [address] | | | - LABORATORY | | | | + + + + + | [facility] | [address] | [place], [place] | | | [facility] | | [address], [facility] | | | - LABORATORY | [...] + | MISCELLANEOUS LAB | | | [phone] | + +---------+ + + | MISCELANIOUS LAB | | | [phone] | + +---------+ + + documented in [...]
--- OUTSIDE RECORDS SUMMARY | ~2019-12-28 | XMS | Encounter Summary ---
Demographics + + + | Address | [address] | | | [place] [address] | + + + | Home Phone [...] [place] | | | | | [address] | | + + + + + Care Team Providers + +------+ + | Care Curbing Stonecutter Name | Role | Phone | + +------+ + | Davis Ivan MD | PCP | | + +------+ + Reason for Visit +--------+--------+ + | Reason | Onset | Comments | | | Date | | +--------+--------+ + | Other | 07/28/ | Pre-Op Orders | | | 2014 | | +--------+--------+ + Encounter Details +--------+ + + + + | Date | Type | Department | Care Team | Description | +--------+ + + + + | 07/28/ | Telephone | [facility] | Chalino Chiu | Other (Pre-Op | | 2014 | | SURGERY [address] | MD Brittanie, [facility] [address] | Orders) | | | | [place] | [address] [facility] | | | | | [address] | [place] [address] | | | | | [phone] | [phone] | | | | | | | [...] this encounter Miscellaneous Notes Telephone Encounter - Deborah Gu RN - 07/28/2014 8:52 AM PSTReceived phone call from [facility], pre op orders needed for today's add on, Port-A-Cath placement. documented in this encounter Plan of Treatment +--------+---------+ + + + | Date | Type | Specialty | Care Team | Description | +--------+---------+ + + + | 03/06/ | Office | Rheumatology | Santosh Sumner, | | | 2020 | Visit | | [address] | | | | | | [place] | | | | | | [place] [address] | | | | | | [phone] | | | | | | | | +--------+---------+ + + + documented as of this encounter Visit Diagnoses Not on filedocumented in this encounter"
--- OUTSIDE RECORDS SUMMARY | ~2019-12-28 | XMS | Encounter Summary ---
Demographics + + + | Address | [address] | | | [place] [address] | + + + | Home Phone [...] [place] | | | | | [address] | | + + + + + Care Team Providers + +------+ + | Care Transportation Worker Name | Role | Phone | [...] | | left thumb | | [place], | | | | | [place] | | [place] [address] | | | | | finger, left | | Phone: | | | | | ring finger | | [phone] | | | | | Trigger | | Fax: | | | | | middle | | [phone] | | | | | finger of | | | | | | | left hand | | | | | | | Procedures | | | | | | | [place] | | | | | | [...] + + + + | 09/28/ | Hospital | [facility] | Giuliano Padilla, | Trigger finger of | | 2018 | Encounter | MED CTR OR INTRA OP | MD [address] | left thumb; [place] | | | | [address] | [place], [place] | finger, left ring | | | | [place], [place] | [address] | finger; [place] | | | | [address] | | middle finger of | | | | [phone] | | left hand | +--------+ + + + + Social [...] 2 tablets by | | 0 | 10/24/20 | | | (DELTASONE) 5 mg | [...] and [facility] signed by Giuliano Padilla MD at 09/28/2018 2:09 PM PDTGiuliano Padilla MD - 09/24/2018 5:53 PM PDT [facility] HISTORY AND PHYSICAL EXAMINATION [...] arthritis(714.0) on prednisone and methotrexate, Dr. Lewis, [place] Spinal stenosis has tried cortisone injections Spondylolisthesis of cervical region Sputum culture positive for Scopulariopsis species Squamous cell carcinoma of lung (HCC) 07/2013 right lower lobe Stroke (HCC) 2006 Stroke (HCC) 2008 Upper GI bleed 06/[address] [facility] Past Surgical History: Procedure Laterality Date BACK SURGERY 03/2014 BLADDER SUSPENSION BRONCHOSCOPY 07/11/2014 EBUS with right hilar LN biopsy, [facility] Dr. Sierra CERVICAL SPINE SURGERY 2012 CHOLECYSTECTOMY COLONOSCOPY 06/2014 ENDOSCOPY HAND ARTHROPLASTY Left 03/20/2015 Procedure: Left 1st C.M.C. Arthroplasty; Surgeon: Giuliano Padilla MD; Location: [facility] MAIN OR HAND ARTHROPLASTY Right 10/27/2017 Procedure: Right 1st CMC Arthroplasty; Surgeon: Giuliano Padilla MD; Location: [facility] MAIN O R HYSTERECTOMY LOBECTOMY 09/16/13 right lower lobe LUNG BIOPSY 07/21/13 right lower lobe SHOULDER SURGERY SHOULDER SURGERY right shoulder THUMB SURGERY TONGUE SURGERY benign per pt TUNNELED VENOUS PORT PLACEMENT N/A 07/28/2014 Procedure: Port Placement; Surgeon: Chalino Chiu MD; Location: [facility] MAIN OR Allergies: Allergies Allergen Reactions [...] non-medical: Not on file Occupational History 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 Tobacco Use Smoking status: [...] in [place] With: alone Grew up: in [place] Has previously lived in: [place] Exposure to [...] | 2019 | Visit | | [address] | | | | | | [facility] | | | | | | [place] [address] | | | | | | [phone] | | | | | | | | +--------+---------+ + + + documented as of this encounter Visit Diagnoses + + | Diagnosis | + + | Trigger finger of left thumb - Primary | + + | Trigger finger, left ring finger | + + | Trigger middle finger of left hand Trigger finger (acquired) | + + | Hypothyroidism Unspecified hypothyroidism | + + | Hypertension Unspecified essential hypertension | + + | GERD (gastroesophageal reflux disease) Esophageal reflux | + + | MARCE (obstructive sleep apnea) Obstructive sleep apnea (adult) (pediatric) | + + | Osteoporosis Osteoporosis, unspecified | + + | Rheumatoid arthritis | + + | Chronic obstructive bronchitis with pulmonary emphysema | + + documented in this encounter [...] | 200 mg 200 mg, Oral, ONCE, Tue | | 19 [...] | 600 mg 600 mg, Oral, ONCE, Thu | | 19 [...]
--- OUTSIDE RECORDS SUMMARY | ~2019-12-28 | XMS | Encounter Summary ---
Demographics + + + | Address | [address] | | | [place] [address] | + + + | Home Phone [...] [place] | | | | | [address] | | + + + + + Care Team Providers + +------+ + | Care Outbound Sales Professional Name | Role | Phone | [...] + + | 08/04/ | Hospital | [facility] | Jimmy Banegas DO | | | 2014 | Encounter | MED CTR RADIATION | [address] | | | | | ONCOLOGY [address] | [place] | | | | | [place], | [address] | | | | | [place] [address] | | | | | | [phone] | | | +--------+ + + + [...] | 2019 | Visit | | [address] | | | | | | [place] [facility] | | | | | | [place] [address] | | | | | | [phone] | | | | | | | | +--------+---------+ + + + documented as of this encounter Visit Diagnoses Not on filedocumented in this encounter"
--- OUTSIDE RECORDS SUMMARY | ~2019-12-28 | XMS | Encounter Summary ---
Demographics + + + | Address | [address] | | | [place] [address] | + + + | Home Phone [...] [address] | | | | | [address] | | + + + + + Care Team Providers + +------+ + | Care Ranch Cook Name | Role | Phone | + +------+ + | Davis Ivan MD | PCP | | + +------+ + Reason for Visit + +--------+ + | Reason | Onset | Comments | | | Date | | + +--------+ + | Medication Refill | 05/05/ | | | | 2015 | | + +--------+ + Encounter Details +--------+--------+ + + + | Date | Type | Department | Care Team | Description | +--------+--------+ + + + | 05/05/ | Refill | [facility] | Vivian, | Medication Refill | | 2015 | | MED CTR MEDICAL | Lokesh Gramajo MD [address] | | | | | ONCOLOGY CLINIC [address] | [facility] | | | | | [address] [place] | [address] | | | | | [place] [address] | [address] | | | | | [phone] | | | +--------+--------+ + + + [...] | 2020 | Visit | | [address] | | | | | | [place] | | | | | | [place] [address] | | | | | | [phone] | | | | | | | | +--------+---------+ + + + documented as of this encounter Visit Diagnoses + + | Diagnosis | + + | Gastroesophageal reflux disease without esophagitis - Primary Esophageal reflux | + + documented in this encounter"
--- OUTSIDE RECORDS SUMMARY | ~2019-12-28 | XMS | Encounter Summary ---
Demographics + + + | Address | [address] | | | [place] [address] | + + + | Home Phone [...] [place] | | | | | [address] | | + + + + + Care Team Providers + +------+ + | Care Software Engineering Analyst Name | Role | Phone | + +------+ + | Davis Ivan MD | PCP | | + +------+ + Encounter Details +--------+ + + + + | Date | Type | Department | Care Team | Description | +--------+ + + + + | 10/05/ | Hospital | [facility] | Adelita Lu MD | Squamous cell | | 2013 | Encounter | MED CTR MEDICAL | Need updated | carcinoma of lung, | | | | ONCOLOGY CLINIC [address] | address | stage II, right | | | | [address] [place] | | (HCC) (Primary Dx) | | | | [place] [address] | | | | | | [phone] | | | +--------+ + + + [...] 10/05/2013 2:13 PM PDT Hem-Onc Progress Note [facility] Patient name:Thea Carmona : 1945 Age: 68 y.o. CSN: [id number] Date of Service: 10/05/2013 Identifying Statement: Thea Carmona is a 68 y.o. female from [facility] with clinical stage II, pathologic stage IB [...] by interventional radiology at [facility] of the right lung massshows squamous [...] by Dr. Beltran , thoracic surgeon at [facility] for consideration of broncho scopy, right thoracoscopy, [...] [facility]ICAL [facility]ENTER) 2006 Stroke ([facility]) 2007 Squamous cell carcinoma of lung ([facility]) 07/2013 MARCE (obstructive sleep apnea) [...] mg by mouth Daily. RESPIRATORY THERAPY SUPPLIES [facility] [employer] S9 auto CPAP 5-9 cm H2O. Heater [...] this chart may have been created with [employer]ado voice recognition software. Occasi onal wrong-word or [...] at a 9-10/10. documented in this encounter Miscellaneous Notes Miscellaneous - ONBASE SCAN [facility] - 10/26/2013 12:00 AM PDT iscellaneous - ONBASE SCAN [facility] - 10/12/2013 12:00 AM PDTEle ctronically signed by [facility] at 10/12/2013 3:10 PM PDTMiscellaneous - ONBASE SCAN [facility] T - 10/12/2013 12:00 AM PDT d ocumented in this encounter Plan of Treatment +--------+---------+ + + + | Date | Type | Specialty | Care Team | Description | +--------+---------+ + + + | 03/06/ | Office | Rheumatology | Santosh Sumner, | | | 2019 | Visit | | [address] | | | | | | [facility] | | | | | | [place] [address] | | | | | | [phone] | | | | | | | [...] 9 | 7 - 18 mg/dL | [facility] | | | | | | [facility] | | | | | | MEDICAL | | | | | | CENTER - | | | | | | LABORATORY | | + + + + + + | Creatinine | 0.78 | 0.60 - 1.30 | [facility] | | | | | mg/dL | [facility] | | | | | | MEDICAL | | | | | | CENTER - | | | | | | LABORATORY | | + + + + + + | eGFR, | >60Comment: GLOMERULAR | >=60 | [facility] | | | non- | FILTRATION | mL/min/1.73m2 | [facility] | | | [place] | RATE,ESTIMATED | | MEDICAL | | | | mL/min/1.93y0Ndqa than | | CENTER - | | [...] + | [facility] | [address] | [place] | [phone] | | [facility] | | [address] | | | - LABORATORY | | | | + + + + + | [facility] | [address] | [place], [place] | | | [facility] | | [id number] [place] [address] | | | - LABORATORY | | [...] | Basophils | | K/uL | [facility] | | | | | | [...] + | [facility] | [address] | [place] | [phone] | | [facility] | | [address] | | | - LABORATORY | | | | + + + + + | [facility] | [address] | [place] | | | [facility] | | [address], [place] | | | - LABORATORY | | | | + + + + + documented in this encounter Visit Diagnoses + + | Diagnosis | + + | Squamous cell carcinoma of lung, stage II, right (HCC) - Primary | + + documented in this encounter"
--- OUTSIDE RECORDS SUMMARY | ~2019-12-28 | XMS | Encounter Summary ---
Demographics + + + | Address | [address] | | | [place] [address] | + + + | Home Phone [...] [address] | | | | | [address] | | + + + + + Care Team Providers + +------+ + | Care Metal Fabricator Apprentice Name | Role | Phone | + +------+ + | Davis Ivan MD | PCP | | + +------+ + Reason for Visit +--------+--------+ + | Reason | Onset | Comments | | | Date | | +--------+--------+ + | Other | 04/27/ | | | | 2012 | | +--------+--------+ + Encounter Details +--------+ + + + + | Date | Type | Department | Care Team | Description | +--------+ + + + + | 04/27/ | Telephone | [facility] | Narcisa Mckay, | Other | | 2012 | | PULMONARY [address] | RN | | | | | [place], | | | | | | [place] [address] | | | | | | [phone] | | | +--------+ + + + [...] Telephone Encounter - Narcisa Kwok RN - 04/27/2013 9:53 AM PSTCalled patient per to remind her to complete chest xray prior to her follow up appointment. She under stands. documented in t his encounter Plan of Treatment +--------+---------+ + + + | Date | Type | Specialty | Care Team | Description | +--------+---------+ + + + | 03/06/ | Office | Rheumatology | Santosh Sumner, | | | 2019 | Visit | | [address] | | | | | | [facility] | | | | | | [place] [address] | | | | | | [phone] | | | | | | | | +--------+---------+ + + + documented as of this encounter Visit Diagnoses Not on filedocumented in this encounter"
--- OUTSIDE RECORDS SUMMARY | ~2019-12-28 | XMS | Encounter Summary ---
Demographics + + + | Address | [address] | | | [place] [address] | + + + | Home Phone [...] [place] | | | | | [address] | | + + + + + Care Team Providers + +------+ + | Care Fruit Harvest Worker Name | Role | Phone | + +------+ + | Davis Ivan MD | PCP | | + +------+ + Encounter Details +--------+ + + + + | Date | Type | Department | Care Team | Description | +--------+ + + + + | 07/31/ | Documentati | [facility] | Hiral Dsouza, | | | 2014 | on | [facility] | [facility] [address] | | | | | [address] [place] | [place], [place] | | | | | [place] [address] | [address] | | | | | [phone] | | | +--------+ + + + [...] documented as of this encounter Progress Notes Hiral Dsouza, [facility] - 07/31/2014 11:32 AM PSTFormatting of this note might be different fro m the original. IDT PATIENT MEDICATION/PROFILE REVIEW [facility] Pharmacy [...] of Paclitaxel and carboplatin for locally advanced atz-tvkjq-temw lung cancer: a randomized phase II locally advanced multi-modality protocol. Pertinent Medical History: has a past medical history of COPD (chronic obstructive pulmona ry disease) ([facility]); Spondylolisthesis of cervical region; Spinal stenosis; Osteoporosis; Depr ession; Pneumonia (2008); Rheumatoid arthritis(714.0) ([facility]); Hyperlipidemia; Hypertension; H ypothyroidism; GERD (gastroesophageal reflux disease); Stroke ([facility]) (2006); Stroke ([facility]) (18 01); Squamous cell carcinoma of lung ([facility]) (07/2013); Sputum culture positive for Scopulariop sis species; Recurrent squamous cell carcinoma of lung ([facility]) (07/11/2014); MARCE (obstructive s leep [...] mg by mouth Daily. Respiratory Therapy Supplies [facility] ResColorescience S9 auto CPAP 5-9 cm H2O. Heater [...] | 2019 | Visit | | [facility] [address] | | | | | | [place] | | | | | | [facility] [address] | | | | | | [phone] | | | | | | | | +--------+---------+ + + + documented as of this encounter Visit Diagnoses Not on filedocumented in this encounter"
--- OUTSIDE RECORDS SUMMARY | ~2019-12-28 | XMS | Encounter Summary ---
Demographics + + + | Address | [address] | | | [place] [address] | + + + | Home Phone [...] [place] | | | | | [address] | | + + + + + Care Team Providers + +------+ + | Care Inclusion Intern Name | Role | Phone | + +------+ + | Davis Ivan MD | PCP | | + +------+ + Encounter Details +--------+ + + + + | Date | Type | Department | Care Team | Description | +--------+ + + + + | 11/01/ | Hospital | [facility] | Rodney Worthy | Left shoulder pain, | | 2019 | Encounter | [facility] | MD [address] | unspecified | | | | [address] [place] | [address] [place] | chronicity; Right | | | | [place] | [place] [address] | shoulder pain, | | | | [address] | [phone] | unspecified | | | | [phone] | | chronicity; | | | | [...] mg by mouth | | 0 | / | | | (PROTONIX) 40 mg | [...] | 2019 | Visit | | [facility] [address] | | | | | | [facility] | | | | | | [place] [address] | | | | | | [phone] | | | | | | | [...] | Raoul Lockwood Results In - 11/01/2018 12:35 PM PDT [...]
--- OUTSIDE RECORDS SUMMARY | ~2019-12-28 | XMS | Encounter Summary ---
Demographics + + + | Address | [address] | | | [place] [address] | + + + | Home Phone [...] [place] | | | | | [address] | | + + + + + Care Team Providers + +------+ + | Care Dog Control Officer Name | Role | Phone | + +------+ + | Davis Ivan MD | PCP | | + +------+ + Encounter Details +--------+ + + + + | Date | Type | Department | Care Team | Description | +--------+ + + + + | 12/21/ | Orders Only | [facility] | Provider, | Rheumatoid arthritis | | 2019 | | SYSTEM GENERIC OP | MD [address] | with rheumatoid | | | | CONVERSION [address] | [address] | factor ([facility]); | | | | [address], [place] | [place] [address] | Rheumatoid arthritis | | | | [address] | | ([facility]) | | | | [phone] | | | +--------+ + + + [...] | 2019 | Visit | | [facility] [address] | | | | | | [facility] | | | | | | [place] [address] | | | | | | [phone] | | | | | | | [...] | Differential | | e | arthritis (HCC) | starting 01/14/2019 | | | | | | until 10/29/2019, 1 | | | | | | completed | + +------+--------+ + + | Comprehensive | Lab | Routin | Rheumatoid | 3 Occurrences | | Metabolic Panel | | e | arthritis (HCC) | starting 01/14/2019 | | | | | | until 10/29/2019, 1 | | | | | | completed | + +------+--------+ + + | Sedimentation Rate | Lab | Routin | Rheumatoid | 3 Occurrences | | | | e | arthritis ([facility]) | starting 01/14/2019 | | | | | | until 10/29/2019, 1 | | | | | | completed | + +------+--------+ + + | C-Reactive Protein | Lab | Routin | Rheumatoid | 3 Occurrences | | | | e | arthritis ([facility]) | starting 01/14/2019 | | | | [...] | | | | performed at [facility];[address] | | LAB | | | | [place] | | [facility] | | | | [address];[place] [address] | | LABORATORY | | + + + + + + + + | Specimen | + + | Blood | + + + + + + + | Performing | Address | City/State/Zipcode | Phone Number | | Organization | | | | + + + + + | REFERENCE LAB | [address] [facility] | [place] | [phone] | | [facility] | [address] | [address] | | | LABORATORY | | | | + + + + + | REFERENCE LAB | [address] [facility] | [place], [place] | | | [facility] | [address] | [address] | | | LABORATORY | | | [...] | | | | performed at [facility];[address] | | LAB | | | | [facility] | | [facility] | | | | [address];[place] [address] | | LABORATORY | | + + + + + + + + | Specimen | + + | Blood | + + + + + + + | Performing | Address | City/State/Zipcode | Phone Number | | Organization | | | | + + + + + | REFERENCE LAB | [address] [place] [address] | [place] | [phone] | | [facility] | [address] | [address] | | | LABORATORY | | | | + + + + + | REFERENCE LAB | [address] [place] [address] | [place] | | | [facility] | [address] | [address] | | | LABORATORY | | | [...] | | | | performed at [facility];[address] | | | | | | [facility] | | | | | | [facility];[place] [address] | | | | | | | | | | + + + + + + + + | Specimen | + + | Blood | + + + + + + + | Performing | Address | City/State/Zipcode | Phone Number | | Organization | | | | + + + + + | REFERENCE LAB | [address] | [place] | [phone] | | [facility] | [address] | [address] | | | LABORATORY | | | | + + + + + | REFERENCE LAB | [address] | [place] | | | [facility] | [address] | [address] | | | LABORATORY | | | [...] + + + | Red Blood | 3.98 | 3.70 - 5.10 | [...] | | | | performed at [facility];[address] | | [facility] | | | | [place] | | LABORATORY | | | | Blvd;[place] [address] | | | | | | | | | | + + + + + + + + | Specimen | + + | Blood | + + + + + + + | Performing | Address | City/State/Zipcode | Phone Number | | Organization | | | | + + + + + | REFERENCE LAB | [address] [facility] | [place], [place] | [phone] | | [facility] | [address] | [address] | | | LABORATORY | | | | + + + + + | REFERENCE LAB | [address] [place] [address] | [place], [place] | | | [facility] | [address] | [address] | | | LABORATORY | | | | + + + + + documented in this encounter Visit Diagnoses + + | Diagnosis | + + | Rheumatoid arthritis with rheumatoid factor (HCC) Rheumatoid arthritis | + + | Rheumatoid arthritis (HCC) | + + documented in this encounter"
--- OUTSIDE RECORDS SUMMARY | ~2019-12-28 | XMS | Encounter Summary ---
Demographics + + + | Address | [address] | | | [place] [address] | + + + | Home Phone [...] [address] | | | | | [address] | | + + + + + Care Team Providers + +------+ + | Care Tailings Man Name | Role | Phone | + +------+ + | Caitlin Chino MD | PCP | | + +------+ + Reason for Visit + +--------+ + | Reason | Onset | Comments | | | Date | | + +--------+ + | Wrist Pain | 04/11/ | | | | 2018 | | + +--------+ + Encounter Details +--------+ + + + + | Date | Type | Department | Care Team | Description | +--------+ + + + + | 04/11/ | Telephone | [facility] | Rodney Worthy | Wrist Pain | | 2018 | | ORTHOPEDIC SURGERY | [address] | | | | | [address] | [facility] [facility] | | | | | [place] | [place] [address] | | | | | [address] | [phone] | | | | | [phone] | | | +--------+ + + + [...] this encounter Miscellaneous Notes Telephone Encounter - Cristel Guallpa I Punchboard Stuffer - 04/22/2019 11:30 AM PSTPatien t surgery has been scheduled on 05/09/2019. elephone Encounter - Cristel Guallpa I Medical Ass istant - 04/11/2019 10:20 AM PSTPatient called in and stated that the pain in her wrist has continued with no relief and that she would like to move forward with being referred to a pr ovider in the [facility] to discuss surgery. Please advise. Thanks. documented in this encounter Plan of Treatment +--------+---------+ + + + | Date | Type | Specialty | Care Team | Description | +--------+---------+ + + + | 03/06/ | Office | Rheumatology | Santosh Sumner, | | | 2019 | Visit | | [facility] [address] | | | | | | [place] | | | | | | [place] [address] | | | | | | [phone] | | | | | | | | +--------+---------+ + + + documented as of this encounter Visit Diagnoses Not on filedocumented in this encounter"
--- OUTSIDE RECORDS SUMMARY | ~2019-12-28 | XMS | Encounter Summary ---
Demographics + + + | Address | [address] | | | [place] [address] | + + + | Home Phone [...] [place] | | | | | [address] | | + + + + + Care Team Providers + +------+ + | Care Toll Relief Operator Name | Role | Phone | + +------+ + | Caitlin Chino MD | PCP | | + +------+ + Reason for Visit + + + | Reason | Comments | + + + | Follow-up | RA | + + + Encounter Details +--------+---------+ + + + | Date | Type | Department | Care Team | Description | +--------+---------+ + + + | 11/29/ | Office | [facility] | Santosh Sumner, | Rheumatoid | | 2020 | Visit | RHEUMATOLOGY [address] | [facility] [address] | arthritis, involving | | | | [address] | [facility] | unspecified site, | | | | [place], [place] | [place] [address] | unspecified | | | | [address] | [phone] | rheumatoid factor | | | | [phone] | | presence (HCC) | | | [...] + + + | Blood Pressure | 136/82 | 11/30/2019 2:05 PM | | | | | PDT | | + + + + + | Pulse | 77 | 11/30/2019 2:05 PM | | | | | PDT | | + + + + + | Temperature | 36.6 C (97.8 F) | 11/30/2019 2:05 PM | | | | | PDT | | + + + + + | Respiratory Rate | - | - | | + + + + + | Oxygen Saturation | 98% | 11/30/2019 2:05 PM | | | | | PDT | | + + + + + | Inhaled Oxygen | - | - | | | Concentration | | | | + + + + + | Weight | 66.7 kg (147 lb) | 11/30/2019 2:05 PM | | | | | PDT | | + + + + + | Height | - | - | | + + + + + | Body Mass Index | 26.89 | 08/08/2019 4:15 PM | | | [...] of this encounter Patient Instructions Patient Instructions Risa Ansari, Associate Justice - 11/30/2019 2:10 PM PDTWe hope that you have experienced exceptional care today and that you found our service to be court eous and helpful. If you have any questions or need medication refills you can send us a message/request u [employer] or call our office at [phone]. To reach my MA-C type extension [phone]. If you are unable to reach a nurse during clinic hours, please leave a detailed message. We check our messages often and return calls in a timely manner during clinic hours. Orders for labs or imaging: Please remember that [facility] will only call you if so mething of concern needs to be addressed, otherwise all result will be discussed at your [place] [facility] office visit. You can also look at your results on Kchart. If you are experiencing an emergency, please call 911 documented in this encounter Progress Notes Santosh Sumner PA-C - 11/30/2019 2:10 PM PDTFormatting of this note might be different f rom the original. Subjective: Patient ID:Thea bonilla 74 y.o.female. Rheumatological History: Thea Toro a 72 y.o.femalewith complex medical [...] cancer: She is a 69-year-old woman from [facility] who was previously being diagnosed with [...] no concerns and is doing better Interval History:02/22/2019:The patient states thatyaa has had some more aches in gener al that are worse in the evening and better with rest. She states her shoulders, back and kn ees have been aching. She denies any significant swelling or stiffness. She states that in t he morning she is doing okay and that its as she gets going and or the cold hurts her. Interval History: 05/30/2019 The patient states thatyaa was in the ER and had a PE and wa s discharged the 12 of May. She put her on warfrin. She states that she still has the clot. She states she had a colonscopy and that's when she develpoped a PE. She is having so me trouble breathing Interval History:08/30/2019 The patient states that she has been doing well with no major c oncerns. She has some issues with her neck but otherwise has no complaints. She states she i s doing really good. Last Seen On: 08/30/2019 by Santosh Sumner PA-C Today's Date: 11/30/2019 Any changes in overall health since last visit: No Current rheumatological medications: : 15mg Methotrexate weekly with 1mg Folic Acid daily Current chief complaint: The patient states that she has been having pain in the evenings a fter being active all day but denies any significant stiffness or joint pains in the morning time. She states she is otherwise doing well. Rating Scale: 2 Morning stiffness lasting: <30 Minutes Quality: Ache Severity: Mild Duration: >6 months Timing: Evening>Morning Aggravated by: Activity Relieved [...] for dysuria and hematuria. Musculoskeletal: Positive for arthralgias (BILATERAL HANDS WRIST FINGER AND THUMBS). Negati ve for joint swelling. Skin: Negative for rash. Neurological: Negative for numbness and headaches. Psychiatric/Behavioral: The patient is not nervous/anxious. ISantosh PA-C, reviewed the above ROS. Past Medical History: Diagnosis Date Acid reflux disease Acute recurrent pansinusitis Acute sinusitis 09/14/2013 AF (paroxysmal atrial fibrillation) ([facility]) Alcohol abuse quit in 05/2012; 40 year habit Anemia Angina of effort ([facility]) Arrhythmia Arthritis Bursitis of left shoulder Conjunctivitis COPD (chronic obstructive pulmonary disease) ([facility]) on albuterol COPD exacerbation (HCC) Depression HONG (dyspnea on exertion) Folliculitis Full dentures upper & lower GERD (gastroesophageal reflux disease) Hemorrhoids, internal, with bleeding Hx of blood clots Hyperlipidemia on simvastatin Hypertension on clonidine and lisinopril Hypothyroidism Joint pain MCFP (current) use of systemic steroids Lumbar spondylosis Mood disorder (HCC) Obesity MARCE (obstructive sleep apnea) no CPAP Osteoporosis Other chronic pain Pneumonia 2008 hospitalized 5 days Pulmonary embolism (HCC) Pulmonary nodule 03/30/2013 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 Vitamin D deficiency Wears dentures Current Outpatient [...] , Rfl: 0 methotrexate 2.5 mg tablet, TAKE 8 TABLETS BY MOUTH ONCE EVERY WEEK FOR RHEUMATOID ART HRITIS. 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 Social Needs Financial resource strain: Not on file Food insecurity Worry: Not on file Inability: Not on file Transportation needs Medical: Not on file Non-medical: Not on file Tobacco Use Smoking status: Former Smoker Packs/day: 1.00 Years: 50.00 Pack years: 50.00 Types: Cigarettes Start date: 03/08/1952 Quit date: 07/24/2016 Years since quittin.3 Smokeless tobacco: Never Used Substance and Sexual Activity Alcohol use: Not Currently Alcohol/week: 0.0 standard drinks Comment: pt states she was an alcoholic for 40 years but quit in 05/2012 Drug use: Not Currently Comment: marijuana in the remote past Sexual activity: Not on file Lifestyle Physical activity Days per week: Not on file Minutes per session: Not on file Stress: Not on file Relationships Social connections Talks on phone: Not on file Gets together: Not on file Attends taoism service: Not on file Active member of club or organization: Not on file Attends meetings of clubs or organizations: Not on file Relationship status: Not on file Intimate partner violence Fear of current or ex partner: Not on file Emotionally abused: Not on file Physically abused: Not on file Forced sexual activity: Not on file Other Topics Concern Not on file Social History Narrative Lives: in [place] With: alone Grew up: in [place] Has previously lived in: [place] Exposure to toxic chemicals: no Exposure to asbestos: no Exposure to tuberculosis: no Has had a PPD or Quantiferon before: no Has pets at home: cat and a dog Has ever owned birds: yes, 5 years ago Other animal exposures: no Hobbies: used to jaja, crossword puzzles, walking her dog No Known Allergies Objective: BP 136/82 | Pulse 77 | Temp 36.6 C (97.8 F) (Temporal) | Wt 66.7 kg (147 lb) | SpO2 98% | BMI 26.89 kg/m Physical Exam Constitutional: General: She is not in acute distress. Appearance: She is well-developed. HENT: Head: Normocephalic and atraumatic. Nose: Nose normal. Eyes: General: Right eye: No discharge. Left eye: No discharge. Conjunctiva/sclera: Conjunctivae normal. Pupils: Pupils are equal, round, and reactive to light. Neck: Musculoskeletal: Normal range of motion. Cardiovascular: Rate and Rhythm: Normal rate and regular rhythm. Pulmonary: Effort: Pulmonary effort is normal. No respiratory distress. Breath sounds: Rhonchi present. No wheezing or rales. Abdominal: General: There is no distension. Musculoskeletal: Comments: MCPs: Negative PIPs: Carlos nodes DIPS: Heberden's nodes CMC: Squaring bilaterally Palms: Negative Hands: Negative Wrists: Negative Fists: Able to make fist bilaterally Elbows: Negative Shoulders: Negative Sternoclavicular: Negative Knees: Crepitus Ankles: Negative MTPs: Negative Spine: Negative with satisfactory ROM Skin: General: Skin is warm and dry. Findings: Bruising (hands) present. No rash. Neurological: Mental Status: She is alert and oriented to person, place, and time. Psychiatric: Behavior: Behavior normal. Thought Content: Thought content normal. Lab Data: Lab Results Component Value [...] 360 hour(s)). Laboratory results were reviewed in [facility] as well as chart notes and [...] Folic Acid daily and doing well. She does have compliants of joint pains b ut in the evening and large joints. Likely associated with her OA. Follow up with PCP in reg ards to pain control. We will make no changes and see [...] produce reversible infertility in men. Relevant Orders CBC with Differential Comprehensive Metabolic Panel C-Reactive Protein Sedimentation Rate Other High risk medication use The patient [...] rheumatological therapy. There is evidence of COPD Relevant Orders CBC with Differential Comprehensive Metabolic Panel C-Reactive Protein Sedimentation Rate Risks and benefits of a treatment plan [...] involved in today's visit. Procedure Documentation: Procedures documente d in this encounter Miscellaneous Notes Addendum Note - Santosh Sumner PA-C - 11/30/2019 2:10 PM PDT Addended by: KEITH SUMNER on: 12/01/2019 08:46 AM Modules accepted: Orders ssessment & Plan Note - Santosh Sumner PA-C - 11/30/2019 1:41 PM PDTAssociated Problem(s): High risk medi cation useThe patient was counseled regarding medication compliance and routine laboratory m onitoring due to the potential toxicities with rheumatological medications such as but not l imited to; hematologic toxicity, hepatotoxicity, renal dysfunction and increased risks for i nfections. Basic Labs Monitored (CBC, CMP, ESR and [...] Plan Note - Santosh Sumner PA-C - 11/30/2019 1:41 PM PDTAssociated Pr oblem(s): Rheumatoid arthritis The patient returns to the clinic for a follow up appointment . She is on 15mg Methotrexate weekly with 1mg Folic Acid daily and doing well. She does have compliants of joint pains but in the evening and large joints. Likely associated with her O A. Follow up with PCP in regards to pain control. We will make no changes and see her back i n 3 months Discussed risks and benefits of [...] may produce reversible infertility in men. Electron ically signed by Santosh Sumner PA-C at 11/30/2019 2:17 PM PDTdocumented in this encounter Plan of Treatment +--------+---------+ + + + | Date | Type | Specialty | Care Team | Description | +--------+---------+ + + + | 03/06/ | Office | Rheumatology | Santosh Sumner, | | | 2019 | Visit | | [address] | | | | | | [place] [address] | | | | | | [place] [address] | | | | | | [phone] | | | | | | | | +--------+---------+ + + + + +------+--------+ + + | Name | Type | Priori | Associated Diagnoses | Order Schedule | | | | ty | | | + +------+--------+ + + | CBC with | Lab | Today | Rheumatoid | 6 Occurrences | | Differential | | | arthritis, involving | starting 11/30/2019 | | | | | unspecified site, | until 05/30/2021, 1 | | | | | unspecified | completed | | | | | rheumatoid factor | | | | | | presence (HCC) High | | | | | | risk medication use | | + +------+--------+ + + | Comprehensive | Lab | Today | Rheumatoid | 6 Occurrences | | Metabolic Panel | | | arthritis, involving | starting 11/30/2019 | | | | | unspecified site, | until 05/30/2021, 1 | | | | | unspecified | completed | | | | | rheumatoid factor | | | | | | presence ([facility]) High | | | | | | risk medication use | | + +------+--------+ + + | C-Reactive Protein | Lab | Today | Rheumatoid | 6 Occurrences | | | | | arthritis, involving | starting 11/30/2019 | | | | | unspecified site, | until 05/30/2021, 1 | | | | | unspecified | completed | | | | | rheumatoid factor | | | | | | presence (HCC) High | | | | | | risk medication use | | + +------+--------+ + + | Sedimentation Rate | Lab | Today | Rheumatoid | 6 Occurrences | | | | | arthritis, involving | starting 11/30/2019 | | | | | unspecified site, | until 05/30/2021, 1 | | | | | unspecified | completed | | | | | rheumatoid factor | | | | | | presence (HCC) High | | | | | | risk medication use | | + +------+--------+ + + | Renal Function Panel | Lab | Routin | Rheumatoid | Expected: | | | | e | arthritis, involving | 12/15/2019, Expires: | | | | | unspecified site, | 11/30/2020 | | | | | unspecified | | | | | | rheumatoid factor | | | | | | presence (HCC) High | | | | | | risk medication use | | + +------+--------+ + + documented as of this encounter Results Sedimentation Rate (11/30/2019 2:19 PM PDT) + + + + + + | Component | Value | Ref Range | Performed | Pathologist | | | | | At | Signature | + + + + + + | ESR | 37 (H)Comment: Testing | 0 - 30 mm/Hr | REFERENCE | | | | performed at [facility];[address] | | LAB | | | | [place] | | [facility] | | | | [address];[place] [address] | | LABORATORY | | + + + + + + + + | Specimen | + + | Blood | + + + + + + + | Performing | Address | City/State/Zipcode | Phone Number | | Organization | | | | + + + + + | REFERENCE LAB | [address] | [place] | [phone] | | [facility] | [address] | [address] | | | LABORATORY | | | | + + + + + | REFERENCE LAB | [address] | [place] | | | [facility] | [address] | [address] | | | LABORATORY | | | [...] REFERENCE | | | | performed at [facility];[address] | | LAB | | | | [place] | | [facility] | | | | [address];[place] [address] | | LABORATORY | | + + + + + + + + | Specimen | + + | Blood | + + + + + + + | Performing | Address | City/State/Zipcode | Phone Number | | Organization | | | | + + + + + | REFERENCE LAB | [address] | [place] | [phone] | | [facility] | [address] | [address] | | | LABORATORY | | | | + + + + + | REFERENCE LAB | [address] | [place] | | | [facility] | [address] | [address] | | | LABORATORY | | | [...] | | | | | performed at [facility];[address] | | | | | | [facility] | | | | | | vd;[place] [address] | | | | | | | | | | + + + + + + + + | Specimen | + + | Blood | + + + + + + + | Performing | Address | City/State/Zipcode | Phone Number | | Organization | | | | + + + + + | REFERENCE LAB | [address] [place] [address] | [place], [place] | [phone] | | [facility] | [address] | [address] | | | LABORATORY | | | | + + + + + | REFERENCE LAB | [address] [place] [address] | [place], [place] | | | [facility] | [address] | [address] | | | LABORATORY | | | [...] | | | Absolute | performed at [facility];[address] | [address] | LAB | | | | [place] | | [facility] | | | | [address];[place] [address] | | LABORATORY | | + + + + + + + + | Specimen | + + | Blood | + + + + + + + | Performing | Address | City/State/Zipcode | Phone Number | | Organization | | | | + + + + + | REFERENCE LAB | [address] [facility] [address] [facility] [address] | [place] | [phone] | | [facility] | [address] | [address] | | | LABORATORY | | | | + + + + + | REFERENCE LAB | [address] | [place], [place] | | | [facility] | [address] | [address] | | | LABORATORY | | | [...]
--- OUTSIDE RECORDS SUMMARY | ~2019-12-28 | XMS | Encounter Summary ---
Demographics + + + | Address | [address] | | | [place] [address] | + + + | Home Phone [...] [place] | | | | | [address] | | + + + + + Care Team Providers + +------+ + | Care Burglar Alarm Operator Name | Role | Phone | [...] + + | 08/28/ | Hospital | [facility] | Adelita Lu MD | Recurrent squamous | | 2015 | Encounter | [facility] | Need updated | cell carcinoma of | | | | [facility] [address] | address | lung, right (HCC) | | | | [address] | | (Primary Dx) | | | | [place] [address] | | | | | | [phone] | | | +--------+ + + + [...] 08/28/2014 9:44 AM PDT Hem-Onc Progress Note [facility] Patient name:Thea Carmona : 1945 Age: 69 y.o. CSN: [id number] Date of Service: 08/28/2014 Identifying Statement: Thea Carmona is a 69 y.o. female from [facility] with clinical stage II, non-small cell [...] 2.CT-guided biopsy by interventional radiology at [facility] of the right lung massshows [...] [facility]) [facility] Hyperlipidemia on simvastatin Hypertension on clonidine and lisinopril Hypothyroidism GERD (gastroesophageal reflux disease) Stroke ([facility]) 2007 Stroke ([facility]) 2007 Squamous [...] by mouth Daily. RESPIRATORY THERAPY SUPPLIES [facility] ResMed S9 auto CPAP 5-9 cm H2O. Heater and Humidifier . All necessary supplies. AHI 11.6. Diagnosis Code(s)327.23, also has co morbid hypertension , history of stroke. Length of Need 99 months. Please send order to [facility]. RESPIRATORY THERAPY SUPPLIES [facility] Respironics autotitrating CPAP at 5-9 cm H2O [...] this chart may have been created with [employer] voice recognition software. Occasi onal wrong-word or [...] | 2019 | Visit | | [address] | | | | | | [facility] | | | | | | [place] [address] | | | | | | [phone] | | | | | | | | +--------+---------+ + + + documented as of this encounter Visit Diagnoses + + | Diagnosis | + + | Recurrent squamous cell carcinoma of lung, right (HCC) - Primary | + + documented in this encounter
--- OUTSIDE RECORDS SUMMARY | ~2019-12-28 | XMS | Encounter Summary ---
Demographics + + + | Address | [address] | | | [place] [address] | + + + | Home Phone [...] [place] | | | | | [address] | | + + + + + Care Team Providers + +------+ + | Care Subsurface Augmentee Elint Operator Name | Role | Phone | [...] + + | 09/11/ | Hospital | [facility] | Adelita Lu MD | Recurrent squamous | | 2015 | Encounter | [facility] | Need updated | cell carcinoma of | | | | [facility] [address] | address | lung, unspecified | | | | [address] [place] | | laterality (HCC); | | | | [place] [address] | | Pulmonary nodules | | | | [phone] | | | +--------+ + + + [...] | 2019 | Visit | | [address] | | | | | | [place] [address] | | | | | | [place] [address] | | | | | | [phone] | | | | | | | | +--------+---------+ + + + documented as of this encounter Visit Diagnoses + + | Diagnosis | + + | Recurrent squamous cell carcinoma of lung, unspecified laterality (HCC) | + + | Pulmonary nodules Other nonspecific abnormal finding of lung field | + + documented in this encounter"
--- OUTSIDE RECORDS SUMMARY | ~2019-12-28 | XMS | Encounter Summary ---
Demographics + + + | Address | [address] | | | [place] [address] | + + + | Home Phone [...] [place] | | | | | [address] | | + + + + + Care Team Providers + +------+ + | Care Marketing Officer Name | Role | Phone | + +------+ + | Caitlin Chino MD | PCP | | + +------+ + Encounter Details +--------+ + + + + | Date | Type | Department | Care Team | Description | +--------+ + + + + | 04/22/ | Hospital | [facility] | [place], | Cervicalgia; History | | 2019 | Encounter | MED [facility] XRAY [address] | MD [address] | of fusion of | | | | [place] | [place], [place] | cervical spine | | | | [place] [address] | [address] | | | | | [phone] | | | +--------+ + + + [...] tablet | | 19 | 9 | + [...] | 2019 | Visit | | [address] | | | | | | [place] [address] | | | | | | [place] [address] | | | | | | [phone] | | | | | | | [...] | | | |Dictated and Signed by: Hemrinio Levi MD | | Electronically signed: 04/22/2019 [...]
--- OUTSIDE RECORDS SUMMARY | ~2019-12-28 | XMS | Encounter Summary ---
Demographics + + + | Address | [address] | | | [place] [address] | + + + | Home Phone [...] [place] | | | | | [address] | | + + + + + Care Team Providers + +------+ + | Care Charge Master Specialist Name | Role | Phone | [...] | | | [address] | [place] [address] | | | | | [place] [address] | | | | | | [phone] | | | +--------+ + + + [...] | 2019 | Visit | | [facility] [address] | | | | | | [place] [address] | | | | | | [place] [address] | | | | | | [phone] | | | | | | | [...]
--- OUTSIDE RECORDS SUMMARY | ~2019-12-28 | XMS | Encounter Summary ---
Demographics + + + | Address | [address] | | | [place] [address] | + + + | Home Phone [...] [place] | | | | | [address] | | + + + + + Care Team Providers + +------+ + | Care Vacuum Cooker Operator Name | Role | Phone | [...] | | | | | | | SC REPAIR | | | | | | [...] + + | 10/27/ | Hospital | [facility] | Giuliano Padilla, | | | 2018 | Encounter | MED CTR XRAY [address] | MD [address] [facility] | | | | | [place] | [place], [place] | | | | | [place] [address] | [address] | | | | | [phone] | | | +--------+ + + + [...] | 2020 | Visit | | [address] | | | | | | [facility] | | | | | | [place] [address] | | | | | | [phone] | | | | | | | | +--------+---------+ + + + documented as of this encounter Procedures + +--------+ + + + | Procedure Name | Priori | Date/Time | Associated Diagnosis | Comments | | | ty | | | | + +--------+ + + + | SHEFALI DAVID STATS NO | Routin | 10/27/2017 | | Results for this | | CHARGE | e | 11:14 AM | | procedure are in the | | | | PDT | | results section. | + +--------+ + + + documented in this encounter Results SHEFALI Noyola Stats No Charge (10/27/2017 11:14 AM PDT) + [...]
--- OUTSIDE RECORDS SUMMARY | ~2019-12-28 | XMS | Encounter Summary ---
Demographics + + + | Address | [address] | | | [place] [address] | + + + | Home Phone [...] [place] | | | | | [address] | | + + + + + Care Team Providers + +------+ + | Care Final Inspector Balance Wheel Name | Role | Phone | + [...] RN | obstructive | | | | [place], | | pulmonary disease) | | | | [place] [address] | | | | | | [phone] | | | +--------+ + + + [...] | 2019 | Visit | | [address] | | | | | | [place] | | | | | | [place] [address] | | | | | | [phone] | | | | | | | | +--------+---------+ + + + documented as of this encounter Visit Diagnoses + + | Diagnosis | + + | COPD (chronic obstructive pulmonary disease) Chronic airway obstruction, not | | elsewhere classified | + + documented in this encounter"
--- OUTSIDE RECORDS SUMMARY | ~2019-12-28 | XMS | Encounter Summary ---
Demographics + + + | Address | [address] | | | [place] [address] | + + + | Home Phone [...] [address] | | | | | [address] | | + + + + + Care Team Providers + +------+ + | Care Dial Mounter Name | Role | Phone | + +------+ + PCP | Unavailable | + +------+ + Encounter Details +--------+ + + + + | Date | Type | Department | Care Team | Description | +--------+ + + + + | 01/19/ | Hospital | [facility] | Silviano Perry MD | | | 2012 - | Encounter | [facility] [address] | [address] | | | | | [address] | [place], [place] | | | 01/23/ | | [place], [place] | [address] | | | 2012 | | [address] | | | | | | [phone] | | | +--------+ + + + [...] Discharge Summaries by RITA Rubio at 01/28/13 8213 Author: RITA Rubio Service: (none) Author Type: Advanced Registered Nurse Praclauren price Filed: 01/28/13 1548 Date of Service: 01/28/136 Status: Signed Hand Fretted Instrument Maker: RITA Rubio (Advanced Registered Nurse Practitioner) [facility] Service: Orthopedic Surgery Brief Post-op Discharge Note [...] Status: Prior Activity restrictions and use of [place]/Soft collar was d/w patient. Follow up: F/U at [facility] within 2 weeks. Discharge Medication List as [...] mouth once a week. Takes on Thursday, Mayi wilson 04/18/2012, Until Discontinued, Historical Med morphine (MSIR) [...] Progress Notes by Corrine Polk RN at 01/23/131148 Author: Corrine Polk RN Service: (none) Author Type: Registered Nurse Filed: 01/23/131148 Date of Service: 01/23/131148 Status: Signed Hand Fretted Instrument Maker: Corrine Polk RN (Registered Nurse) Discharge instructions given to pt to include; prescriptions, follow up appt, discharge car e and what to notify the physician of once discharged. Pt denies any questions or concerns a t this time. IV discontinued and pt escorted out via WC. Corrine Polk RN 01/23/2013 11:49 AM Elsi Mathew PT - 01/23/2013 9:18 AM PDTFormatting of this note might be different from t he original. Progress Notes by Elsi Hernandez PT at 01/23/13917 Author: Elsi Hernandez PT Service: (none) Author Type: Physical Therapist Filed: 01/23/13926 Date of Service: 01/23/13917 Status: Signed Hand Fretted Instrument Maker: Elsi Hernandez PT (Physical Therapist) 01/23/13917 PT [...] (none) Author Type: Occupational Therapist Filed: 01/22/13 4602 Date of Service: 01/22/131046 Status: Signed Hand Fretted Instrument Maker: BLAIR Raymundo (Occupational Therapist) 01/22/13 1047 Precautions [...] session today under the direct supervision of CLAUDER/L. Cognition Overall Cognitive Status WFL Orientation Level [...] Date of Service: 01/22/13 1021 Status: Signed Hand Fretted Instrument Maker: Elsi Hernandez PT (Physical Therapist) 01/22/13 1021 PT Last Visit PT Received On 01/22/13 Reason for Treatment Spinal surgery Requires PT Follow Up PT tech Assistance Required 1 person Precautions Spinal Precautions Cervical (Apen on when out of bed. ) Other Comments Comments Pt agreealbe to PT isabel, able to negotiate 3 stairs x 3 [...] limited by? Therapist/staff discretion Stair Management Technique [id number] Activity Tolerance Activity Tolerance Patient limited by fatigue Safety Devices Safety Devices in Place (call light in reach) Restraints Initially in Place No Plan Treatment/Interventions Amb with mobility aide Progress Improving as expected Recommendation Recommendations Return to prior living situation ELSI HERNANDEZ PT 01/22/2013 Vidal Taylor - 8:21 AM PDT Progress Notes by RITA Rubio at 01/22/13 08 Author: RITA Rubio Service: (none) Author Type: Advanced Registered Nurse Praclauren price Filed: 01/22/13 08 Date of Service: 01/22/13820 Status: Signed Hand Fretted Instrument Maker: RITA Rubio (Advanced Registered Nurse Practitioner) [facility] Service: Orthopedic Surgery Progress Note Hospital Day: [...] Status: Full Code RITA MONROE 01/22/2013 onversion Transaction, Prov ider Unknown - 01/21/2013 3:02 PM PDTFormatting of this note might be different from the or iginal. Progress Notes by Denver Arias PTA at 01/21/13 1502 Author: Denver Arias PTA Service: (none) Author Type: Admissions Specialist Filed: 01/21/13 8552 Date of Service: 01/21/13 1502 Status: Signed Hand Fretted Instrument Maker: Denver Arias PTA (Admissions Specialist) 01/21/13 1502 PT Last Visit PT Received [...] 01/21/2013 11:35 AM PDT Progress Notes by BLAIR Charlton at 01/21/13 1135 Author: BLAIR Charlton Service: (none) Author Type: Occupational Therapist Filed: 01/21/13 1135 Date of Service: 01/21/13 1135 Status: Signed Hand Fretted Instrument Maker: BLAIR Charlton (Occupational Therapist) 01/21/13 1117 THERAPUTTY EXERCISE Theraputty exercises Product Specialist (oil pump station operator chief, pinch, twist for increased fine motor control [...] Denver Arias PTA Service: (none) Author Type: Admissions Specialist Filed: 01/21/13 1032 Date of Service: 01/21/13 1031 Status: Signed Hand Fretted Instrument Maker: Denver Arias PTA (Admissions Specialist) 01/21/13 1031 PT Last Visit PT Received [...] Return to prior living situation Ashlee Mazariegos 01/20/2013 3:15 PM PDTFormatting of this note might be different from the origin al. Progress Notes by Aslhee Gomes PT at 01/20/13 7772 Author: Ashlee Gomes PT Service: (none) Author Type: Physical Therapist Filed: 01/20/13 1731 Date of Service: 01/20/13 1511 Status: Signed Hand Fretted Instrument Maker: Ashlee Gomes PT (Physical Therapist) 01/20/13 1510 PT Last Visit PT Received On 01/20/13 [...] chair at end of tx with signi ficant other at bedside, call light, phone & [...] living situation;Home with daytime assist Equipment Recommended Crusher And Binder Operator Ashlee Gomes Theresa - 01/21/20 10:12 AM PDT Progress Notes by Ashlee Gomes PT at 01/20/13 1012 Author: Ashlee Gomes PT Service: (none) Author Type: Physical Therapist Filed: 01/20/13 7566 Date of Service: 01/20/13 1012 Status: Signed Hand Fretted Instrument Maker: Ashlee Gomes PT (Physical Therapist) 01/20/13 1012 PT Last Visit PT Received On 01/20/13 Reason for Treatment Spinal surgery (C4 - 6 fusion & diskectomy) Requires PT Follow Up Yes Follow up PT Only? No PT Eval/Reassessment Date 01/20/13 Assistance Required 1 person Instrumentation Technologist Needed No Requires PT Follow Up Yes [...] situation;Home with 24 hr supervision/assist Equipment Recommended Crusher And Binder Operator Prior Function Level of [place] Household distance;Modified independent with functional mobility;Assi st [...] Should progress with skilled therapy intervention Ashlee Gomes - 01/21/20 10:12 AM PDT Progress Notes by Ashlee Gomes, PT at 01/20/13 1012 Author: Ashlee Gomes PT Service: (none) Author Type: Physical Therapist Filed: 01/20/13 0592 Date of Service: 01/20/13 1012 Status: Signed Hand Fretted Instrument Maker: Ashlee Gomes PT (Physical Therapist) 01/20/13 1012 PT Last Visit PT Received On 01/20/13 Reason for Treatment Spinal surgery (C4 - 6 fusion & diskectomy) Requires PT Follow Up Yes Follow up PT Only? No PT Eval/Reassessment Date 01/20/13 Assistance Required 1 person Instrumentation Technologist Needed No Precautions Spinal Precautions Cervical;Cervical collar [...] situation;Home with 24 hr supervision/assist Equipment Recommended Crusher And Binder Operator Vidal Taylor - 01/20/2013 8:04 AM PDT Progress Notes by RITA Rubio at 01/20/13 08 Author: RITA Rubio Service: (none) Author Type: Advanced Registered Nurse Praclauren price Filed: 01/20/13804 Date of Service: 01/20/13803 Status: Signed Hand Fretted Instrument Maker: RITA Rubio (Advanced Registered Nurse Practitioner) [facility] Service: Orthopedic Surgery Progress Note Hospital Day: [...] | BMI 30.81 kg/m2 | SpO2 94% {EXTENDEDVITALS:92234 Physical Exam Ortho Exam Drain 50cc 5-/5 bialteral deltoids strength. PROBLEM LIST Active Problems: * No active hospital problems. * ASSESSMENT & PLAN Ambulate with PT today. Disposition: Surgical inpatient Code Status: Full Code RITA MONROE 01/20/2013 onversion Transaction, Prov ider Unknown - 01/19/2013 5:36 PM PDTFormatting of this note might be different from the or iginal. Progress Notes by BLAIR Charlton at 01/19/13 173 Author: BLAIR Charlton Service: (none) Author Type: Occupational Therapist Filed: 01/19/131735 Date of Service: 01/19/131735 Status: Signed Hand Fretted Instrument Maker: BLAIR Charlton (Occupational Therapist) 01/19/13 171 Home Environment Type of Home Home one story Home Exterior Layout Other (Comment);4-6 steps;Rail on L ascending (6 cement stairs) Home Interior Layout Lives on main level with bedroom/bathroom Bathroom Shower/Tub Tub/shower unit Bathroom Toilet Standard Bathroom Equipment Grab bars in shower/bath;Shower chair Bathroom Accessibility Accessible via walker Home Equipment Walker front wheeled;Walker 4 wheeled Prior Function Level of [place] Modified independent with functional mobility;Assist with ADLs;Assist [...] and handout) LE Dressing Adaptive Equipment Sock aid;Crusher And Binder Operator;Elastic shoe laces;Button hook Arm Goals Pt Will Perform AROM B UE;2 sets;10 reps;With activity tolerance;Without significant change in vital signs;With good activity tolerance;3 sets (ST X 2 w/ handout LT X 3 independently) Pt Will Complete Theraputty Exer L UE;2 sets;Min resistance putty (yellow);With handout for visual cueing;With verbal cues;Independently (STG: oil pump station operator chief/pinch/twist w/ vcs LTG: independent) Siena rhoades, Charity Cardenas RP - 01/19/2013 5:07 PM PDTFormatting of this note might be different from t he original. Progress Notes by Charity Leal RPH at 01/19/131706 Author: Charity Leal RPH Service: (none) Author Type: Pharmacist Filed: 01/19/131706 Date of Service: 01/19/131706 Status: Signed Hand Fretted Instrument Maker: Charity Leal RPH (Pharmacist) Clinical Pharmacy Note - Renal Dose Adjustment Thea Carmona 67 y.o. female Ht Readings from Last 1 Encounters: 01/19/13 1.575 m (5' 2") Wt Readings from Last 1 Encounters: 01/19/13 76.4 kg (168 lb 6.9 oz) CREATININE Date Value Range Status 01/13/2013 1.06* 0.50 - 1.00 mg/dL Final Testing performed at [facility], [address] [place] [address] Creatinine clearance cannot be calculated - Pharmacy to renally adjust medications per RITA Dalton Plan: No current Scr. Will follow up once labs are available. Pharmacy will continue to follow and adjust as appropriate. Pharmacist: Charity Leal 01/19/2013 5:07 PM documente d in this encounter Miscellaneous Notes Plan of Care - Conversion Transaction, Provider Unknown - 01/22/2013 11:34 AM PDT Plan of Care by BLAIR Raymundo at 01/22/13 8188 Author: BLAIR Raymundo Service: (none) Author Type: Occupational Therapist Filed: 01/22/131133 Date of Service: 01/22/131133 Status: Signed Hand Fretted Instrument Maker: BLAIR Raymundo (Occupational Therapist) Problem: Home Exercise Program Goal: LTG - Patient will independently demonstrate HEP to increase independence for ADLs/IA DLs and functional mobility Outcome: Progressing For: BUE Goal not met and Continue goal Problem: Self-care/Dynamic Activity Goal: STG - Introduce AE/AT Outcome: Progressing To: for performance in daily tasks Goal status: Goal not met and Continue goal lan o f Care - Conversion Transaction, Provider Unknown - 01/21/2013 11:34 AM PDTFormatting of aren s note might be different from the original. Plan of Care by BLAIR Charlton at 01/21/131133 Author: BLAIR Charlton Service: (none) Author Type: Occupational Therapist Filed: 01/21/131133 Date of Service: 01/21/131133 Status: Signed Hand Fretted Instrument Maker: BLAIR Charlton (Occupational Therapist) Problem: Home Exercise Program Goal: LTG - Patient will independently demonstrate HEP to increase independence for ADLs/IA DLs and functional mobility Outcome: Progressing For: Fine motor coordination Continue goal lan o f Care - Conversion Transaction, Provider Unknown - 01/21/2013 2:12 AM PDTFormatting of thi s note might be different from the original. Plan of Care by Ana Salcedo RN at 01/21/13211 Author: Ana Salcedo RN Service: (none) Author Type: Registered Nurse Filed: 01/21/13212 Date of Service: 01/21/13211 Status: Signed Hand Fretted Instrument Maker: Ana Salcedo RN (Registered Nurse) Problem: Pain Goal: Patient s pain/discomfort is manageable Assess and monitor patient s pain using appropriate pain scale. Collaborate with interdis ciplinary team and initiate plan and interventions as ordered. Re-assess patient s pain le lobo approximately 1-2 hours after pain management intervention. Premedicate as needed. Outcome: Progressing Patient pain controlled on oral narcotics. Assess for increased need and further interventi ons Problem: Safety Goal: Patient will be injury [...] provided. Outcome: Progressing Patient will remain free of falls, safety measures in place. Patient alert and oriented ins tructed to call for assistance before getting out of bed. Using walker to assist with ambula tion lan o f Care - Conversion Transaction, Provider Unknown - 01/20/2013 8:33 AM PDTFormatting of thi s note might be different from the original. Plan of Care by Agustina Chen RN at 01/20/13832 Author: Agustina Chen RN Service: (none) Author Type: Registered Nurse Filed: 01/20/13832 Date of Service: 01/20/13832 Status: Signed Hand Fretted Instrument Maker: Agustina Chen RN (Registered Nurse) Problem: Ineffective Breathing Pattern Goal: Respiratory status - gas exchange Alveolar exchange of carbon dioxide or oxygen to maintain arterial blood gas concentrations . Outcome: Progressing Encouraged IS use 10x/hr Problem: Risk for Falls Goal: No falls during hospitalization Patient will not fall during hospitalization. Outcome: Progressing Encouraged patient to use call light when wanting to mobilize lan o f Care - Conversion Transaction, Provider Unknown - 01/19/2013 4:57 PM PDTFormatting of thi s note might be different from the original. Plan of Care by Agustina Chen RN at 01/19/131656 Author: Agustina Chen RN Service: (none) Author Type: Registered Nurse Filed: 01/19/131656 Date of Service: 01/19/131656 Status: Signed Hand Fretted Instrument Maker: Agustina Chen RN (Registered Nurse) Problem: Knowledge Deficit Goal: Patient will remain free from falls: High Risk (Tyler 51+) Outcome: Progressing Encouraged patient to use call light when wanting to mobilize p Not e - Silviano Perry Jr. - 01/19/2013 1:44 PM PDTFormatting of this note might be different f rom the original. Op Note signed by Silviano Perry MD at 02/07/13 1539 Author: Silviano Perry MD Service: (none) Author Type: Physician Filed: 02/07/13 1539 Date of Service: 01/19/13 1344 Status: Signed Hand Fretted Instrument Maker: Silviano Perry MD (Physician) THEA CARMONA Date of : 1945 PREOPERATIVE DIAGNOSES 1. Cervical spondylolisthesis, C4-5. 2. Cervical stenosis, C5-6, C6-7. POSTOPERATIVE DIAGNOSES 1. Cervical spondylolisthesis, C4-5. 2. Cervical stenosis, C5-6, C6-7. PROCEDURES 1. Anterior cervical diskectomy and fusion, C4-5, C5-6. 2. Reduction of spondylolisthesis, C4-5. 3. Placement of structural allograft, C4-5, C5-6. 4. DBX putty, C4-5, C5-6. 5. Placement of Synthes Vectra plate, C4 through C6. 6. Robert of fat graft and placement into epidural space, C4-5, C5-6. 7. Intraoperative microscopy. 8. Intraoperative fluoroscopy. SURGEON Silviano Perry MD STOCK MANAGER RITA Rubio COMPLICATIONS The patient had several short runs of ventricular tachycardia when screws were placed with pressure, but immediate cessation after, without pressure. Postop EKG was normal in recovery and pt. Asymptomatic. DESCRIPTION OF PROCEDURE The patient was signed preoperatively, with preoperative antibiotics administered. inocente Ramirez nurse, evaluated the patient preoperatively. Preoperative timeout was performed, with preo perative antibiotics administered. She was placed in the supine position, intubated without difficulty. A small towel roll was placed between the shoulder blades, arms well padded at h er sides. Right-sided approach to the anterior cervical spine centered over the C5 vertebral body lev el was performed with Rankin-Hicks approach without significant difficulty. Sharp and blun t dissection ensued, with mobilization of the carotid complex laterally and the esophagus an d trachea medially. Subsequently, the spondylolytic level at C4-5 was identified and corrobo rated with the intraoperative x-ray. Sequential and complete and total diskectomy with gentl e traction applied across the disk space ensued. The posterior longitudinal ligament was res ected as well as uncinate hypertrophy bilaterally. This allowed for very reasonable mobiliza tion which was not unstable, however was quite significant. The appropriate size interbody g raft, 7 mm, was placed into the interbody space which significantly reduced the spondylolist hesis at C4-5. Subsequently, the C5-6 level was also the same, and identical procedure was p erformed at the C5-6 level as described above. The appropriate size 6 mm interbody allograft was placed. An anterior cervical Synthes Vector plate was placed across the cervical spine from C4 to C6. Further reduction of the spondylolisthesis was apparent. Orthogonal x-ray collette ntified the appropriate alignment. Adequate hemostasis was achieved. A flat Radhames drain was placed in the anterior cervical spine. It should be noted that fat graft from the anterior c ervical fascia was harvested, cleaned on the back table with antibiotic solution, and a smal l 3 x 10 mm fat graft was placed on the dura at C4-5, C5-6 to prevent epidural adhesions and scarring. It should be noted that RITA Rubio, was present for the entirety of the case secondar y to the lack of a qualified animal care assistant and necessity for the specialized case. P/ P/sandra/[id number] SILVIANO PERRY MD documented in this en counter Plan of Treatment +--------+---------+ + + + | Date | Type | Specialty | Care Team | Description | +--------+---------+ + + + | 03/06/ | Office | Rheumatology | Santosh Sumner, | | | 2019 | Visit | | [address] | | | | | | [facility] | | | | | | [place] [address] | | | | | | [phone] | | | | | | | | +--------+---------+ + + + documented as of this encounter Procedures + +--------+ + + + | Procedure Name | Priori | Date/Time | Associated Diagnosis | Comments | | | ty | | | | + +--------+ + + + | SHEFALI Gramajo ARM > 1 HOUR | Routin | 01/19/2013 | | Results for this | | | e | 1:49 PM | | procedure are in the | | | | PDT | | results section. | + +--------+ + + + documented in this encounter Results SHEFALI Gramajo-[place] > 1 Hour (01/19/2013 1:49 PM PDT) [...] Conversion - 01/21/2019 4:40 PM PDT THEA CARMONA1945 C-ARM | | FLU[place] OVER 1 HOUR01/19/2013 [...]
--- OUTSIDE RECORDS SUMMARY | ~2019-12-28 | XMS | Encounter Summary ---
Demographics + + + | Address | [address] | | | [place] [address] | + + + | Home Phone [...] [place] | | | | | [address] | | + + + + + Care Team Providers + +------+ + | Care Physicist [employer] Name | Role | Phone | + [...] + + | 07/28/ | Hospital | [facility] | Chalino Chiu | Recurrent squamous | | 2015 | Encounter | MED CTR OR INTRA OP | MD Brittanie, FACS 380 | cell carcinoma of | | | | [address] | [address] [place] | lung, right (HCC) | | | | [place], [place] | [place] [address] | (Primary Dx) | | | | [address] | [phone] | | | | | [phone] | | | +--------+ + + + [...] the port is placed in the arm [id number] [employer]. [address] [place] [address], [place] [address]. All righ ts reserved. This information is [...] may interact with prescription medicines or other ewqa-twu-oyojxjm (OTC) drugs. The FDA recommends reading OTC medication labels careful ly to clearly understand the list of active ingredients, directions, and any precautions to help avoid taking too muchacetaminophen. If you have questions, ask your pharmacist or [facility] care provider. Managing Nausea Some people have [...] or skin changes (rash, itching, or hives). [id number] [employer]. [address] [place] [address], [place] [address]. All righ ts reserved. This information is [...] Chiu MD - 07/28/2014 3:48 PM PST [facility] ADMIT HISTORY AND PHYSICAL Primary Care Physician: Davis Ivan PATIENT NAME: Thea Carmona : 1945 TODAY'S DATE: 07/28/2014 CHIEF COMPLAINT: RIGHt lung carcinoma REASON FOR CONSULTATION: Power port placement History OF PRESENT ILLNESS: I was asked by Dr. Chino to consult on this patient for the [facility] surgery team. Thea Carmona is a 69 y.o. female with RIGHt lung carcinoma. Has had RIGHT lung jones rgraquel aMce in [place]. Now presents with plans for chemotherapy and radiation therapy. States she is on Plavix. PAST MEDICAL HISTORY Past Medical History Diagnosis Date COPD (chronic obstructive pulmonary disease) (HCC) on albuterol Spondylolisthesis of cervical region Spinal stenosis has tried cortisone injections Osteoporosis Depression Pneumonia 2009 hospitalized 5 days Rheumatoid arthritis(714.0) ([facility]) on prednisone and methotrexate, Dr. 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 Sierra MEDICATIONS PRIOR TO ADMISSION [...] Take 1,000 Units by mouth Daily. Yes Hi storical Provider, clopidogrel (PLAVIX) 75 mg tablet Take 75 mg by mouth Daily. Yes Historical Provider, diazepam (VALIUM) 2 mg tablet Take 2 mg by mouth nightly as needed. Yes Historical Provid erMD ferrous sulfate (IRON) 28 MG TABS Take 28 mg by mouth Daily. Yes Historical Provider, folic acid 1 mg tablet Take 1 mg by mouth Daily. Yes Historical Provider, HYDROmorphone (DILAUDID) 4 MG tablet Take 4 [...] Daily. Yes Historical Provider, Respiratory Therapy Supplies [facility] ResMed S9 auto CPAP 5-9 cm H2O. [...] hemothorax, catheter/line infection or occlusion, cardiac arrhthmia, [place], stroke or was explained. No guarantees given or implied. Electronically Signed by: Chalino Chiu MD, 07/28/2014 15:48 [facility], Chalino Gu MD - 07/28/2014 3:43 PM PST [place], [place] SURGICAL INTERIM HISTORY AND PHYSICAL UPDATE [...] signed by: Chalino Chiu, 07/28/2014 15:45 [facility] Adelita Baird MD - 07/25/2014 2:40 PM PST Hem-Onc Progress Note [facility] Patient name:Thea Carmona : 1945 Age: 69 y.o. CSN: [id number] Date of Service: 07/25/2014 Identifying Statement: Thea Carmona is a 69 y.o. female from [facility] with clinical stage II, pathologic stage [...] lewis 2.CT-guided biopsy by interventional radiology at [facility] of the right lung massshows squamous [...] by Dr. Mace , thoracic surgeon at [facility] for consideration of broncho scopy, right [...] Diagnosis Date COPD (chronic obstructive pulmonary disease) ([facility]) on albuterol Spondylolisthesis of cervical region Spinal stenosis has tried cortisone injections Osteoporosis Depression Pneumonia 2009 hospitalized 5 days Rheumatoid arthritis(714.0) ([facility]) 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 RESPIRATORY THERAPY SUPPLIES [facility] ResMed S9 auto CPAP 5-9 cm H2O. Heater and Humidifier . All necessary supplies. AHI 11.6. Diagnosis Code(s)327.23, also has co morbid hypertension , history of stroke. Length of Need 99 months. Please send order to [facility]. RESPIRATORY THERAPY SUPPLIES [facility] Respironics autotitrating CPAP at 5-9 cm H2O [...] >=60 mL/min/1.73m2 Imaging: PET/CT scan June 2014: [facility]: Necrotic right lung lesion wit h SUV of 2.7 and right hilar lymph node with SUV of 12.7 IMPRESSION: Stage IB squamous non-small cell right lung cancer status post lobectomy August 2013 2. Recurrence of non-small cell lung cancer in June 2014 3. Comorbidities with rheumatoid arthritis on methotrexate, history of stroke in 2005 and 2007 on aspirin and Plavix PLAN: Extensive discussion [...] to proceed port placement .all records from [facility] were reviewed Total time face to face discussion with the patient and family was 45 minutes, more than 5 0% of the time was spent counseling and coordination of care. Adelita Lu MD Portions of this chart may have been created with luma-id voice recognition software. Occasi onal wrong-word or sound-alike substitutions may have occurred due to the inherent guzman itations of voice recognition software. Please read the chart carefully and recognize, using context, where these substitutions have occurred. documented in this enc [facility] Nursing Notes Rosetta Jacobo RN - 07/27/2014 1:21 PM PSTDuring preop phone call Mood Disorder Screeni ng 7. Pt. States she does not feel like harming herself. Says she has good help at home; h as 2 caregivers. Offered support while here and speaking with the rhinologist, social welfare research worker, e tc. Pt. Declines. doc umented in this encounter Miscellaneous Notes Op Note - Field, Chalino Gu MD - 07[facility]28/2014 5[facility] [place] Operative Report Pt. Name/Age/: Thea Carmona 69 y.o. 1945 Med. Record Number: [id number] Date of admission: 07/28/2014 Date of Operation/Procedure: 07/28/2014 Preoperative Diagnosis: 1. RIGHT lung carcinoma Postoperative Diagnosis: 1. same Surgeon: Chalino Chiu MD Anesthesia Provider(s): Anesthesiologist: Santosh Barahona MD Anesthesia Type: General Procedure: 1. PLACEMENT OF VASCULAR ACCESS RIGHT INTERNAL JUGULAR VEIN ( CPT* 50652) 2. Monitor fluoroscopy (CPT 82315) Operative Indications: Thea Carmona is a 69 [...] | 2019 | Visit | | [address] | | | | | | [facility] | | | | | | [facility] [place] [address] | | | | | | [phone] | | | | | | | [...]
--- OUTSIDE RECORDS SUMMARY | ~2019-12-28 | XMS | Encounter Summary ---
Demographics + + + | Address | [address] | | | [place] [address] | + + + | Home Phone [...] | Author | [facility] | | | and [place] | + + + | Organization | [facility] | | [...] [address] | | | | | [address] | | + + + + + Care Team Providers + +------+ + | Care Kiln Charger Name | Role | Phone | + +------+ + | Davis Ivan MD | PCP | | + +------+ + Reason for Visit +--------+--------+ + | Reason | Onset | Comments | | | Date | | +--------+--------+ + | Other | 09/14/ | | | | 2013 | | +--------+--------+ + Encounter Details +--------+ + + + + | Date | Type | Department | Care Team | Description | +--------+ + + + + | 09/14/ | Telephone | [facility] | Adelita Lu MD | Other | | 2013 | | MED CTR MEDICAL | Need updated | | | | | [facility]Y CLINIC [address] | address | | | | | [address] | | | | | | [place] [address] | | | | | | [phone] | | | +--------+ + + + [...] Telephone Encounter - Melony Dhaliwal RN - 09/14/2013 4:40 PM PDTNotified [facility] ([place]) elephone Encounte r - Melony Dhaliwal RN - 09/14/2013 4:[address] Lu, Thea is off her methotrex ate now so ok to take Augmentin, and she will be on IV antibiotics once she has surgery.Elec tronically signed by Melony Dhaliwal RN at 09/14/2013 4:36 PM PDTTelephone Encounter - Venita Castillo - 09/14/2013 3:09 PM PDTPharmacist calling to let the doctor know about an i nteraction between Augmentin that Dr. Lu has prescribed and Methotrexate that was prescri bed by another physician. Please call back.Electronically signed by Venita Partida at 08/30 3:11 PM PDTdocumented in this encounter Plan of Treatment +--------+---------+ + + + | Date | Type | Specialty | Care Team | Description | +--------+---------+ + + + | 03/06/ | Office | Rheumatology | Santosh Sumner, | | | 2019 | Visit | | [address] | | | | | | [place] | | | | | | [place] [address] | | | | | | [phone] | | | | | | | | +--------+---------+ + + + documented as of this encounter Visit Diagnoses Not on filedocumented in this encounter"
--- OUTSIDE RECORDS SUMMARY | ~2019-12-28 | XMS | Encounter Summary ---
Demographics + + + | Address | [address] | | | [place] [address] | + + + | Home Phone [...] [place] | | | | | [address] | | + + + + + Care Team Providers + +------+ + | Care Hot Shot Name | Role | Phone | + +------+ + | Davis Ivan MD | PCP | | + +------+ + Reason for Visit +--------+--------+ + | Reason | Onset | Comments | | | Date | | +--------+--------+ + | Other | 07/02/ | | | | 2015 | | +--------+--------+ + Encounter Details +--------+ + + + + | Date | Type | Department | Care Team | Description | +--------+ + + + + | 07/02/ | Telephone | [facility] | Vivian, | Other | | 2015 | | MED CTR MEDICAL | Sarita Gramajo MD [address] | | | | | ON[facility]Y CL[facility] [address] | [facility] | | | | | [address] | [address], [place] | | | | | [place] [address] | [id number] | | | | | [phone] | | | +--------+ + + + [...] Telephone Encounter - Fern Mansfield RN - 07/03/2015 8:44 AM PSTCall transferred to Dr Hendrix, spoke with patient directly. elephone Encounter - Sarita Hendrix MD - 07/02/2015 3 :43 PM PSTReturned call, No answer, left VMM. SARITA HENDRIX MD elephone Encou daviser - Fern Mansfield RN - 07/02/2015 1:45 PM PSTCall returned: swelling has been pr esent for about a month with slight increase in the past week. Feet are not red but are swo llen worse " than ever". Under breasts there is a sensation there is a belt there. Shortnes s of breast has been intermittent but has increased in the past two weeks. Deneis chest sushma n. Tem for the past month has been between 99 and 100 F. Not taking any diuretic currentl y. Please advise. TTelephone Encounter - Paige Fletcher - 07/02/2015 1:18 PM PSTThea is complaining of her feet hurt when she walks, they are very swollen. Complaining of a belt-like tightening around her abdomen. Please call. She sees Dr. Banegas tomorrow but they wanted a call back fr om Dr. Hendrix today. They are wondering if Thea needs water pills. Please call, dave coelho you. documented in t his encounter Plan of Treatment +--------+---------+ + + + | Date | Type | Specialty | Care Team | Description | +--------+---------+ + + + | 03/06/ | Office | Rheumatology | Santosh Sumner, | | | 2019 | Visit | | [address] | | | | | | [facility] | | | | | | [place] [address] | | | | | | [phone] | | | | | | | | +--------+---------+ + + + documented as of this encounter Visit Diagnoses Not on filedocumented in this encounter
--- OUTSIDE RECORDS SUMMARY | ~2019-12-28 | XMS | Encounter Summary ---
Demographics + + + | Address | [address] | | | [place] [address] | + + + | Home Phone [...] [place] | | | | | [address] | | + + + + + Care Team Providers + +------+ + | Care Senior Systems Software Engineer Name | Role | Phone | + +------+ + | Davis Ivan MD | PCP | | + +------+ + Reason for Visit +--------+--------+ + | Reason | Onset | Comments | | | Date | | +--------+--------+ + | Other | 08/11/ | issues with shortness of breath and "panic attacks" | | | 2014 | | +--------+--------+ + Encounter Details +--------+ + + + + | Date | Type | Department | Care Team | Description | +--------+ + + + + | 08/11/ | Telephone | [facility] [place] | Claudia, | Other (issues with | | 2014 | | CARDIOLOGY [address] | Ayana Looney MD | shortness of breath | | | | [place], | | and "panic attacks") | | | | [place] [address] | | | | | | [phone] | | | +--------+ + + + [...] Telephone Encounter - Diann Leal RN - 08/11/2014 5:15 PM [place] was called and h er answered, he was told that Dr Taylor did order the Spiriva but would like to see her in the clinic to assess what is going on. He was told that Dr Taylor thought th at her problem is probably related to the chemotherapy so the Spiriva probably won't help th at problem. He stated that they would call on Thursday to try to schedule her for a visit wit h Dr Taylor. Also they were told that in order to get the O2 they need to do the requir ed testing so it was recommended that they schedule that at the same time. He said they had done it in [place] recently but this breathing issue only just started about a week ago so he will try to schedule a new one. 15 5:27 PM PDTTelephone Encounter - Ayana Taylor MD - 08/11/2014 5:11 PM PDTThis has already been addressed, and I asked that we set them up for testing, but based on the r eading today, no, she cannot. I forwarded a message to Sara earlier this week asking her t o set up testing if she would like oxygen. I will order the Spiriva, but I would be concerned that her increased shortness of breath c ould related to her chemotherapy, and think this is not the best way to practice medicine. S he needs to be seen and assessed. Electronically signed by Ayana Taylor MD at 08/11 5:14 PM PDTTelephone Encounter - Diann Leal RN - 08/11/2014 4:48 PM PDTWhen they first came here the suggestion was made for them to go to the ED because I was back ovsuzan r in General Surgery but they chose to stay and wait instead. She stated she is taking the Symb icort twice daily as prescribed as well as her other inhalers. They would like to try the Sp iriva because she is really desperate to get some relief. They also asked if there was any way that she could get oxygen. They have gone home but will wait for my call. They were to ld that if this continues and especially if it gets worse to not hesitate to go to the ED or the urgent care. el ephone Encounter - Ayana Taylor MD - 08/11/2014 4:35 PM PDTIf patient is having e xtreme shortness of breath, she should be seen in the ER, or be referred to urgent care, and not sit waiting in the waiting room. The patient should be using Symbicort twice daily as noted before, but medication list has not been reviewed. If desired, I can reorder Spiriva, but this will likely not deal with acute issues, nor rsoalinda l with a chemotherapy induced lung problem. elephone Encounter - Diann Leal RN - 08/11/2014 3:55 P M [place] believes that her shortness of breath may have started around the same time her c hemo started...about 1 week ago. Her chemo is for lung cancer. She also states she was nicholas ng treated for a sinus infection and the medication ended a day or two ago but she still has sinus pressure causing a headache. She wonders if this could in some way be related to the shortness of breath. She states she cannot move or do anything without becoming severely s hort of breath and then she begins to panic which makes it worse. She stated a long time ag o she was on an inhaler (she thinks it was Spiriva) and her and her wonder if that w ould help her (he uses Spiriva and it helps him). elephone Encounter - Abena Winkler RN - 08/11/2014 3:30 P M [place] stopped by the office today after her cancer treatment to speak with someone abou t her shortness of breath. She states that she has been seeing Dr Taylor for an URI, bu t she continues with extreme symptoms that often put her into a panic attack from not being able to breath. She has chest tightness, shortness of breath, headaches, decreased toleranc e to any activity even as simple as dressing. Just walking across the waiting room had her very winded. Her O2 Sat was checked earlier by the MA and was at 94%. documented in this encounter Plan of Treatment +--------+---------+ + + + | Date | Type | Specialty | Care Team | Description | +--------+---------+ + + + | 03/06/ | Office | Rheumatology | Santosh Sumner, | | | 2019 | Visit | | [address] | | | | | | [place] | | | | | | [place] [address] | | | | | | [phone] | | | | | | | | +--------+---------+ + + + documented as of this encounter Visit Diagnoses Not on filedocumented in this encounter
--- OUTSIDE RECORDS SUMMARY | ~2019-12-28 | XMS | Encounter Summary ---
Demographics + + + | Address | [address] | | | [place] [address] | + + + | Home Phone [...] [place] | | | | | [address] | | + + + + + Care Team Providers + +------+ + | Care Mgmt Specialist Name | Role | Phone | + +------+ + | Davis Ivan MD | PCP | | + +------+ + Encounter Details +--------+ + + + + | Date | Type | Department | Care Team | Description | +--------+ + + + + | 10/11/ | Hospital | [facility] | Adelita Lu MD | Recurrent squamous | | 2015 | Encounter | MED CTR MEDICAL | Need updated | cell carcinoma of | | | | ONCOLOGY CLINIC [address] | address | lung, right (HCC) | | | | [address] [place] | | (Primary Dx); | | | | [place] [address] | | Pulmonary nodules; | | | | [phone] | | Squamous cell lung | | [...] Lu MD - 10/11/2014 4:39 PM PDT .[facility] Hem-Onc Progress Note [facility] Patient name:Thea Carmona : 1945 Age: 69 y.o. CSN: [id number] Date of Service: 10/11/2014 Identifying Statement: Thea Carmona is a 69 y.o. female from [facility] with clinical stage II, non-small [...] lewis 2.CT-guided biopsy by interventional radiology at [facility] of the right lung massshows [...] Taxol in August 2014 9. Admitted to [facility] on September 27, 2014 for [...] [facility] on [facility]one and 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 [facility] Allergies: No Known Allergies Medications : Patient's [...] mg by mouth Daily. RESPIRATORY THERAPY SUPPLIES [facility] ResMed S9 auto CPAP 5-9 cm H2O. Heater and Humidifier . All necessary supplies. AHI 11.6. Diagnosis Code(s)327.23, also has co morbid hypertension , history of stroke. Length of Need 99 months. Please send order to [facility]. RESPIRATORY THERAPY SUPPLIES [facility] Respironics autotitrating CPAP at 5-9 cm H2O [...] mL/min/1.73m2 imaging: CT scan was obtained from [facility] and results were reviewed which showed right-sided hilar adenopathy which was present at the time of recurrence in 2014 IMPRESSION: Stage II squamous non-small cell right lung cancer status post lobectomy August 2013 2. Recurrence of non-small cell lung cancer in June 2014 3. Comorbidities with rheumatoid arthritis on methotrexate, history of stroke in 2006 and 2007 on aspirin and Plavix 4. Chronic unresolving cough PLAN: patient completed concurrent chemoradiation in August 2013 .treatment was complicated by neutropenia which has resolved She also continues to have a chronic cough which is relieved with the liquid hydrocodone She is also following up with pulmonary medicine doctor [facility] As patient's performance status is gradually recovering [...] this chart may have been created with [employer]otz voice recognition software. Occasi onal wrong-word or sound-alike substitutions may have occurred due to the inherent guzman itations of voice recognition software. Please read the chart carefully and recognize, using context, where these substitutions have occurred. Tess Arguello, ORBITREAD OPERATOR - 10/11/2014 1:24 PM PDTREVIEW OF SYSTEMS [...] | 2019 | Visit | | [address] | | | | | | [facility] | | | | | | [place] [address] | | | | | | [phone] | | | | | | | [...] | non- | FILTRATION | mL/min/1.73m2 | [facility] | | | Maltese | RATE,ESTIMATED | | MEDICAL | | | | mL/min/1.54n5Vkfw than | | CENTER - | | [...] + | [facility] | [address] | [place] | [phone] | | [facility] | | [address] | | | - LABORATORY | | | | + + + + + CBC with Differential (10/11/2014 11:14 AM PDT) + + + + + + | Component | Value | Ref Range | Performed | Pathologist | | | | | At | Signature | + + + + + + | White Blood | 11.2 (H) | 4.0 - 11.0 K/uL | [facility] | | | Cells | | | [facility] | | | | | | MEDICAL | | | | | | CENTER - | | | | | | LABORATORY | | + + + + + + | Red Blood | 3.40 (L) | 3.70 - 5.20 [...] [address] | [place] | [phone] | | [facility] | | [address] | | | - LABORATORY | | [...]
--- OUTSIDE RECORDS SUMMARY | ~2019-12-28 | XMS | Encounter Summary ---
Demographics + + + | Address | [address] | | | [place] [address] | + + + | Home Phone [...] [place] | | | | | [address] | | + + + + + Care Team Providers + +------+ + | Care Supervisor Finishing Name | Role | Phone | + [...] | | Cough | Offenstein, | [address] | | | | | Procedures | Ayana B, | [place], | | | | | CT Chest w | MD [address] | [place] [address] | | | | | Contrast | [address] | Phone: | | | | | | [place], | [phone] | | | | | | [place] [address] | Fax: | | | | | | | [phone] | +--------+--------+ + + + + Reason [...] + + | 08/29/ | Hospital | [facility] | Offenstein, | Cough | | 2014 | Encounter | MED CTR [address] | Ayana Looney MD | | | | | [place], | | | | | | [place] [address] | | | | | | [phone] | | | +--------+ + + + [...] orally daily | 30 | 0 | 03/26/20 | | | (DELTASONE) 10 mg | [...] | 2019 | Visit | | [address] | | | | | | [facility] | | | | | | [place] [address] | | | | | | [phone] | | | | | | | [...] and XRT, known recurrent lung cancer COMPARISON: Chest | [facility] | | radiographs August 24 and July [...] | + + + + + | [facility] [facility] | [address] | [place], [place] | [phone] | | [facility] | | [address] | | | - IMAGING | | [...]
--- OUTSIDE RECORDS SUMMARY | ~2019-12-28 | XMS | Encounter Summary ---
Demographics + + + | Address | [address] | | | [place] [address] | + + + | Home Phone [...] [place] | | | | | [address] | | + + + + + Care Team Providers + +------+ + | Care Non Categorical Preschool Teacher Name | Role | Phone | [...] + | 08/24/ | [facility] | [facility] | Claudia, | Shortness of breath | | 2014 | Encounter | MED CTR PULMONARY | Ayana Looney MD | on exertion | | | | FUNCTION [address] | | | | | | [place], | | | | | | [place] [address] | | | | | | [phone] | | | +--------+ + + + [...] | 2019 | Visit | | [address] | | | | | | [place] | | | | | | [place] [address] | | | | | | [phone] | | | | | | | [...]
--- OUTSIDE RECORDS SUMMARY | ~2019-12-28 | XMS | Encounter Summary ---
Demographics + + + | Address | [address] | | | [place] [address] | + + + | Home Phone [...] [address] | | | | | [address] | | + + + + + Care Team Providers + +------+ + | Care Garage Supervisor Name | Role | Phone | + +------+ + | Davis Ivan MD | PCP | | + +------+ + Reason for Visit +--------+--------+ + | Reason | Onset | Comments | | | Date | | +--------+--------+ + | Other | 08/02/ | question | | | 2013 | | +--------+--------+ + Encounter Details +--------+ + + + + | Date | Type | Department | Care Team | Description | +--------+ + + + + | 08/02/ | Telephone | [facility] | Offenstein, | Other (question) | | 2013 | | PULMONARY [address] | Ayana Looney MD | | | | | [place], | | | | | | [place] [address] | | | | | | [phone] | | | +--------+ + + + [...] Telephone Encounter - Sara Evans RN - 08/02/2013 12:47 PM PSTCalled Mirza and relay ed this message. Okay and he will discuss with Thea. elephone Encounter - Ayana Taylor MD - 12:19 PM PSTI leave that decision to them. However, they may want to focus on her other is sulelia. elephone Encounter - Sara Evans RN - 08/02/2013 11:45 AM PSTJerry came by asking if Thea tellez keep the appointment with Dr Cabrera tomorrow for a pending back fusion as she has lung can cer? documented in th is encounter Plan of Treatment +--------+---------+ + + + | Date | Type | Specialty | Care Team | Description | +--------+---------+ + + + | 03/06/ | Office | Rheumatology | Santosh Sumner, | | | 2019 | Visit | | [address] | | | | | | [facility] | | | | | | [place] [address] | | | | | | [phone] | | | | | | | | +--------+---------+ + + + documented as of this encounter Visit Diagnoses Not on filedocumented in this encounter"
--- OUTSIDE RECORDS SUMMARY | ~2019-12-28 | XMS | Encounter Summary ---
Demographics + + + | Address | [address] | | | [place] [address] | + + + | Home Phone [...] [place] | | | | | [address] | | + + + + + Care Team Providers + +------+ + | Care Chief Meteorologist Name | Role | Phone | + +------+ + | Davis Ivan MD | PCP | | + +------+ + Encounter Details +--------+ + + + + | Date | Type | Department | Care Team | Description | +--------+ + + + + | 11/09/ | Hospital | [facility] | Vivian, | Recurrent squamous | | 2015 | Encounter | MED CTR CHEMO | Lokesh Gramajo MD 0109 | cell carcinoma of | | | | INFUSION [address] | [address] [place] | lung, unspecified | | | | [place], | [address], [place] | laterality (HCC) | | | | [place] [address] | [address] | | | | | [phone] | | | +--------+ + + + [...] | 2019 | Visit | | [address] | | | | | | [place] | | | | | | [place] [address] | | | | | | [phone] | | | | | | | [...] PDT | | | | | [facility] 11/09/14 at 1439 | | | | | | + +--------+ +-------+------+------+ +---+---+ | | | +---+---+ documented in this encounter"
--- OUTSIDE RECORDS SUMMARY | ~2019-12-28 | XMS | Encounter Summary ---
Demographics + + + | Address | [address] | | | [place] [address] | + + + | Home Phone [...] [place] | | | | | [address] | | + + + + + Care Team Providers + +------+ + | Care Marine Chronometer Assembler Name | Role | Phone | + +------+ + | Davis Ivan MD | PCP | | + +------+ + Encounter Details +--------+ + + + + | Date | Type | Department | Care Team | Description | +--------+ + + + + | 10/22/ | Hospital | [facility] | Giuliano Padilla, | Hyperlipidemia, | | 2018 | Encounter | MED CTR LORAINE XRAY | MD Germania BARON | unspecified | | | | [address] [place] | [place], [place] | hyperlipidemia type; | | | | [place], [place] | [address] | Hypertension, | | | | [address] | | unspecified type; Hx | | | | [phone] | | of pulmonary | | | [...] | | | | | | type ([facility]) | | | | | | [...] | 2020 | Visit | | [address] | | | | | | [place] | | | | | | [place] [address] | | | | | | [phone] | | | | | | | [...]
--- OUTSIDE RECORDS SUMMARY | ~2019-12-28 | XMS | Encounter Summary ---
Demographics + + + | Address | [address] | | | [place] [address] | + + + | Home Phone [...] [place] | | | | | [address] | | + + + + + Care Team Providers + +------+ + | Care Deputy Treasurer Name | Role | Phone | + [...] + + | 03/28/ | Office | [facility] | Giuliano Padilla, | Postop check | | 2014 | Visit | ORTHOPEDIC SURGERY | MD Germania ZAPATA | (Primary Dx) | | | | [address] | [place] | | | | | [place] | [address] | | | | | [address] | | | | | | [phone] | | | +--------+---------+ + + + [...] | | [facility] | | | | | | [place] [address] | | | | | | [phone] | | | | | | | | +--------+---------+ + + + documented as of this encounter Visit Diagnoses + + | Diagnosis | + + | Postop check - Primary Follow-up examination, following unspecified surgery | + + documented in this encounter
--- OUTSIDE RECORDS SUMMARY | ~2019-12-28 | XMS | Encounter Summary ---
Demographics + + + | Address | [address] | | | [place] [address] | + + + | Home Phone [...] [place] | | | | | [address] | | + + + + + Care Team Providers + +------+ + | Care Language Instructor Name | Role | Phone | [...] Specialty | Surgery / | Diagnoses | Tabitha | Nelsong Se Perdomo | | | Services | General | Recurrent | MD Adelita | General | | | Required | Surgery | squamous | Need | Surgery [address] | | | | | cell | updated | [address] | | | | | carcinoma of | address | [place], | | | | | lung, right | | [place] [address] | | | | | (HCC) | | Phone: | | | | | | | [phone] | | | | | | | Fax: | | | | | | | [phone] | +--------+ + + + + + Encounter Details +--------+ + + + + | Date | Type | Department | Care Team | Description | +--------+ + + + + | 07/25/ | Hospital | [facility] | Adelita Lu MD | Recurrent squamous | | 2015 | Encounter | MED CTR MEDICAL | Need updated | cell carcinoma of | | | | ONCOLOGY CLINIC [address] | address | lung, unspecified | | | | [address] [place] | | laterality (HCC) | | | | [place] [address] | | (Primary Dx); | | | | [phone] | | Recurrent squamous | | | [...] 07/25/2014 2:40 PM PST Hem-Onc Progress Note [facility] Patient name:Thea Carmona : 1945 Age: 69 y.o. CSN: [id number] Date of Service: 07/25/2014 Identifying Statement: Thea Carmona is a 69 y.o. female from [facility] with clinical stage II, pathologic [...] Pneumonia 2009 hospitalized 5 days Rheumatoid arthritis(714.0) ([facility]) on prednisone and methotrexate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 RESPIRATORY THERAPY SUPPLIES [facility] WeDeliver S9 auto CPAP 5-9 cm H2O. Heater and Humidifier . All necessary supplies. AHI 11.6. Diagnosis Code(s)327.23, also has co morbid hypertension , history of stroke. Length of Need 99 months. Please send order to [facility]. RESPIRATORY THERAPY SUPPLIES [facility] Respironics autotitrating CPAP at 5-9 cm H2O [...] >=60 mL/min/1.73m2 Imaging: PET/CT scan June 2014: [facility]: Necrotic right lung lesion wit [...] to proceed port placement .all records from [facility] were reviewed Total time face to face discussion with the patient and family was 45 minutes, more than 5 0% of the time was spent counseling and coordination of care. Adelita Lu MD Portions of this chart may have been created with [employer] voice recognition software. Occasi onal wrong-word or sound-alike substitutions may have occurred due to the inherent guzman itations of voice recognition software. Please read the chart carefully and recognize, using context, where these substitutions have occurred. documented in this enc ounter Miscellaneous Notes Addendum Note - Anahy Forbes RN - 07/26/2014 8:13 AM PSTEncounter addended by: Anahy bazzi RN on: 07/26/2014 8:13
Documentation filed: Charges VN, Visit DiagnosesElectro nically signed by Anahy Forbes RN at 07/26/2014 8:13 AM PSTdocumented in this encounter Plan of Treatment +--------+---------+ + + + | Date | Type | Specialty | Care Team | Description | +--------+---------+ + + + | 03/06/ | Office | Rheumatology | Santosh Sumner, | | | 2019 | Visit | | [address] | | | | | | [facility] | | | | | | [place] [address] | | | | | | [phone] | | | | | | | [...] | | PST | stage I, right ([facility]) | results section. | + +--------+ + + + | CREATININE | Routin | 07/25/2014 | Squamous cell | Results for this | | | e | 3:34 PM | carcinoma of lung, | procedure are in the | | | | PST | stage I, right ([facility]) | results section. | + [...] | non- | | mL/min/1.73m2 | [facility] | | | [place] | | | MEDICAL | | | [...] + | [facility] | [address] | [place] | [phone] | | [facility] | | [address] | | | - LABORATORY | | | | + + + + + | [facility] | [address] | [place], [place] | | | [facility] | | [id number] [place] [address] | | | - LABORATORY | | [...] + | [facility] | [address] | [place], [place] | [phone] | | [facility] | | [address] | | | - LABORATORY | | | | + + + + + | [facility] | [address] | [place], [place] | | | [facility] | | [address] [place] [address] | | | - LABORATORY | | [...]
--- OUTSIDE RECORDS SUMMARY | ~2019-12-28 | XMS | Encounter Summary ---
Demographics + + + | Address | [address] | | | [place] [address] | + + + | Home Phone [...] [place] | | | | | [address] | | + + + + + Care Team Providers + +------+ + | Care Media Planner Name | Role | Phone | + +------+ + | Caitlin Chino MD | PCP | | + +------+ + Encounter Details +--------+ + + + + | Date | Type | Department | Care Team | Description | +--------+ + + + + | 04/18/ | Abstract | [facility] | Provider, | | | 2019 | | PHYSIATRY [address] | [address] | | | | | [address] [place] [address] [place] | | | | | [place] | [place] [address] | | | | | [address] | | | | | | [phone] | | | +--------+ + + + [...] | 2019 | Visit | | [address] | | | | | | [place] | | | | | | [place] [address] | | | | | | [phone] | | | | | | | | +--------+---------+ + + + documented as of this encounter Visit Diagnoses Not on filedocumented in this encounter"
--- OUTSIDE RECORDS SUMMARY | ~2019-12-28 | XMS | Encounter Summary ---
Demographics + + + | Address | [address] | | | [place] [address] | + + + | Home Phone [...] [place] | | | | | [address] | | + + + + + Care Team Providers + +------+ + | Care Deliverer Outside Name | Role | Phone | + [...] | | | hand, | | [place] [address] | | | | | unspecified | | Phone: | | | | | osteoarthrit | | [phone] | | | | | is type | | Fax: | | | | | Osteoarthrit | | [phone] | | | | | is of [...] | | | | | | | MT REPAIR | | | | | | | INTERCARP/CA | | | | | | | RP-METACARP | | | | | | | JT | | | +--------+--------+ + + + + Encounter Details +--------+ + + + + | Date | Type | Department | Care Team | Description | +--------+ + + + + | 03/20/ | Hospital | [facility] | Giuliano Padilla, | | | 2014 | Encounter | MED CTR XRAY [address] | [address] [facility] | | | | | [address] | [place] | | | | | [place] [address] | [address] | | | | | [phone] | | | +--------+ + + + [...] | 2019 | Visit | | [address] | | | | | | [facility] | | | | | | [place] [address] | | | | | | [phone] | | | | | | | [...] + documented in this encounter Results [place] AvilaRicVilla Najera No Charge (03/20/2015 1:22 PM PDT) [...]
--- OUTSIDE RECORDS SUMMARY | ~2019-12-28 | XMS | Encounter Summary ---
Demographics + + + | Address | [address] | | | [place] [address] | + + + | Home Phone [...] [address] | | | | | [address] | | + + + + + Care Team Providers + +------+ + | Care Ndt Inspector Name | Role | Phone | + +------+ + | Davis Ivan MD | PCP | | + +------+ + Reason for Visit +--------+--------+ + | Reason | Onset | Comments | | | Date | | +--------+--------+ + | Other | 09/06/ | | | | 2014 | | +--------+--------+ + Encounter Details +--------+ + + + + | Date | Type | Department | Care Team | Description | +--------+ + + + + | 09/06/ | Telephone | [facility] | Jimmy Banegas DO | Other | | 2014 | | MED CTR MEDICAL | [address] [facility] | | | | | ONCOLOGY CLINIC [address] | [place] | | | | | [address] | [address] | | | | | [place] [address] | | | | | | [phone] | | | +--------+ + + + [...] Notes Telephone Encounter - Bimal Leal - 09/11/2014 8:57 AM PDTThis was not responded to and the date and time of this issue has come and gone. Closing request.Electronically sign ed by Bimal Leal at 09/11/2014 8:57 AM PDTTelephone Encounter - Bimal Leal - 09/06/2014 1:21 PM Urvashi has a [address], tomorrow and she would like to know if she could move her XRT time. Please call. documented in this encounter Plan of Treatment +--------+---------+ + + + | Date | Type | Specialty | Care Team | Description | +--------+---------+ + + + | 03/06/ | Office | Rheumatology | Santosh Sumner, | | | 2019 | Visit | | [address] | | | | | | [place] | | | | | | [place] [address] | | | | | | [phone] | | | | | | | | +--------+---------+ + + + documented as of this encounter Visit Diagnoses Not on filedocumented in this encounter"
--- OUTSIDE RECORDS SUMMARY | ~2019-12-28 | XMS | Encounter Summary ---
Demographics + + + | Address | [address] | | | [place] [address] | + + + | Home Phone [...] [place] | | | | | [address] | | + + + + + Care Team Providers + +------+ + | Care Surgical Services Manager Name | Role | Phone | [...] + | 10/24/ | Refill | [facility] | iJmmy Banegas DO | Medication Refill | | 2014 | | MED CTR RADIATION | [address] | | | | | ONCOLOGY [address] | [place] | | | | | [place], | [address] | | | | | [place] [address] | | | | | | [phone] | | | +--------+--------+ + + + [...] | 2020 | Visit | | [address] | | | | | | [place] | | | | | | [place] [address] | | | | | | [phone] | | | | | | | | +--------+---------+ + + + documented as of this encounter Visit Diagnoses Not on filedocumented in this encounter"
--- OUTSIDE RECORDS SUMMARY | ~2019-12-28 | XMS | Encounter Summary ---
Demographics + + + | Address | [address] | | | [place] [address] | + + + | Home Phone [...] [place] | | | | | [address] | | + + + + + Care Team Providers + +------+ + | Care Property Investor Name | Role | Phone | + +------+ + | Davis Ivan MD | PCP | | + +------+ + Encounter Details +--------+ + + + + | Date | Type | Department | Care Team | Description | +--------+ + + + + | 05/11/ | Hospital | [facility] | Offenstein, | Pulmonary abscess | | 2012 | Encounter | MED CTR XRAY [address] | Ayana Looney MD | ([facility]) | | | | [place] | | | | | | [place] [address] | | | | | | [phone] | | | +--------+ + + + [...] | | 2020 | Visit | | PA-C [address] | | | | | | [place] [facility] | | | | | | [place] [address] | | | | | | [phone] | | | | | | | [...] Performed At | + + + | [facility] Diagnostic Imaging | [facility] | | Department [address] [facility] | [facility] | | [ rep [address]] [ rep [facility] | | [facility]] Signed | - IMAGING | | | | | Patient Name: TENA CARMONA Physician: | | | OFFAnselmo.[email or web address] : 1945 Age: 67 Sex: F Unit #: [id number] | | | Exam Date: 05/11/13 Location: [facility] | | | Report #: [id number] Page: | | | %(RAD)RES..mtdd.print.filter("pg") of %(RAD) | | | RES..mtdd.print.filter("tpg") | | | | | | Accession Number: [id number] | | | CHEST X-RAY CLINICAL HISTORY: [...] Transcribed Date/Time: 05/11/2013 | | | 13:38 Pediatric Oncology Nurse: <<Signature | | | on File>> | | | Matheus | | | MD Kang05/11/13 1420 <Electronically signed by Matheus Kapadia MD> | | | Matheus Kapadia MD 05/11/13 1328 Pediatric Oncology Nurse: [employer] | | | Rhxcrauajwbsw74/11/13 1572 Ayana Taylor MD | | | | | + + + + + + + + | Performing | Address | City/State/Zipcode | Phone Number | | Organization | | | | + + + + + | [facility] | [address] | [place] | [phone] | | [facility] | | [address] | | | - IMAGING | | | | + + + + + documented in this encounter Visit Diagnoses + + | Diagnosis | + + | Pulmonary abscess (HCC) Abscess of lung | + + documented in this encounter
--- OUTSIDE RECORDS SUMMARY | ~2019-12-28 | XMS | Encounter Summary ---
Demographics + + + | Address | [address] | | | [place] [address] | + + + | Home Phone [...] [place] | | | | | [address] | | + + + + + Care Team Providers + +------+ + | Care Buckram Sewer Name | Role | Phone | + [...] 2019 | | [address] | Subway Train Operator | ([facility]) | | | | [place] | | | | | | [address] | | | | | | [phone] | | | +--------+ + + + [...] | 03/06/ | Office | Rheumatology | Sanotsh Sumner, | | | 2019 | Visit | | [address] | | | | | | [facility] | | | | | | [place] [address] | | | | | | [phone] | | | | | | | [...] LAB | | | | performed at [facility];[address] | | [facility] | | | | [place] | | LABORATORY | | | | Blvd;[place] [address] | | | | | | | | | | + + + + + + + + | Specimen | + + | Blood | + + + + + + + | Performing | Address | City/State/Zipcode | Phone Number | | Organization | | | | + + + + + | REFERENCE LAB | [address] | [place] | [phone] | | [facility] | [address] | [address] | | | LABORATORY | | | | + + + + + | REFERENCE LAB | [facility] | [place] | | | [facility] | [address] | [address] | | | LABORATORY | | | [...] | | | | | performed at [facility];[address] | | | | | | [facility] | | | | | | Blvd;[place] [address] | | | | | | | | | | + + + + + + + + | Specimen | + + | Blood | + + + + + + + | Performing | Address | City/State/Zipcode | Phone Number | | Organization | | | | + + + + + | REFERENCE LAB | [address] [place] [address] | [place], [place] | [phone] | | [facility] | Bl[address] | [address] | | | LABORATORY | | | | + + + + + | REFERENCE LAB | [address] [place] [address] | [place] | | | [facility] | [address] | [address] | | | LABORATORY | | | [...] REFERENCE | | | | performed at [facility];[address] | | LAB | | | | [place] | | [facility] | | | | Blvd;[place] [address] | | LABORATORY | | + + + + + + + + | Specimen | + + | Blood | + + + + + + + | Performing | Address | City/State/Zipcode | Phone Number | | Organization | | | | + + + + + | REFERENCE LAB | [address] [place] [address] | [place], [place] | [phone] | | [facility] | Bl[address] | [address] | | | LABORATORY | | | | + + + + + | REFERENCE LAB | [address] [place] [address] | [place], [place] | | | [facility] | Bl[address]. | [address] | | | LABORATORY | | | [...] REFERENCE | | | | performed at [facility];[address] | | LAB | | | | [place] | | [facility] | | | | Blvd;[place] [address] | | LABORATORY | | + + + + + + + + | Specimen | + + | Blood | + + + + + + + | Performing | Address | City/State/Zipcode | Phone Number | | Organization | | | | + + + + + | REFERENCE LAB | [address] | [place] | [phone] | | [facility] | [address] | [address] | | | LABORATORY | | | | + + + + + | REFERENCE LAB | [address] | [place] | | | [facility] | Bl[address] | [address] | | | LABORATORY | | | | + + + + + documented in this encounter Visit Diagnoses + + | Diagnosis | + + | Rheumatoid arthritis (HCC) | + + documented in this encounter"
--- OUTSIDE RECORDS SUMMARY | ~2019-12-28 | XMS | Encounter Summary ---
Demographics + + + | Address | [address] | | | [place] [address] | + + + | Home Phone [...] [place] | | | | | [address] | | + + + + + Care Team Providers + +------+ + | Care Lockstitch Shoulder Joiner Name | Role | Phone | [...] + + | 09/29/ | Office | [facility] [place] [place] | Offenstein, | COPD (chronic | | 2013 | Visit | PULMONARY [address] | Ayana Looney MD | obstructive | | | | [place], | | pulmonary disease) | | | | [place] [address] | | (Primary Dx); MARCE | | | | [phone] | | (obstructive sleep | | | [...] 09/29/2013 2:10 PM PDTWork with In Home [facility] sungical to get your CPAP mask issues fixed. [...] ground. She is exercising re gularly. She is walking a 70 foot loop 3 times a day. Past Medical History Past Medical History Diagnosis Date COPD (chronic obstructive pulmonary disease) ([facility]) on albuterol Spondylolisthesis of cervical region Spinal stenosis has tried cortisone injections Osteoporosis Depression Pneumonia 2009 hospitalized 5 days Rheumatoid arthritis(714.0) ([facility]) on prednisone and methotrexate, Dr. 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 Respiratory Therapy Supplies [facility] [place] [place] S9 auto CPAP 5-9 cm H2O. Heater [...] made to ensure accuracy; however, inadvertent computerized nutrition aide errors may be pre sent. Electronically signed by: Ayana Taylor MD 09/29/2013 13:51 documented in t his encounter Plan of Treatment +--------+---------+ + + + | Date | Type | Specialty | Care Team | Description | +--------+---------+ + + + | 03/06/ | Office | Rheumatology | Santosh Sumner, | | | 2019 | Visit | | [address] | | | | | | [address] [address] | | | | | | [place] [address] | | | | | | [phone] | | | | | | | [...]
--- OUTSIDE RECORDS SUMMARY | ~2019-12-28 | XMS | Encounter Summary ---
Demographics + + + | Address | [address] | | | [place] [address] | + + + | Home Phone [...] [address] | | | | | [address] | | + + + + + Care Team Providers + +------+ + | Care Library Consultant Name | Role | Phone | + +------+ + | Davis Ivan MD | PCP | | + +------+ + Reason for Visit + +--------+ + | Reason | Onset | Comments | | | Date | | + +--------+ + | Hospital Follow-up | 10/07/ | | | | 2015 | | + +--------+ + Encounter Details +--------+ + + + + | Date | Type | Department | Care Team | Description | +--------+ + + + + | 10/07/ | Telephone | [facility] | Jf Bahena, | Hospital Follow-up | | 2015 | | MED [facility] | [facility] [address] | | | | | [address] [place] | [place], [place] | | | | | [place] [address] | [id number] | | | | | [phone] | | | +--------+ + + + [...] this encounter Miscellaneous Notes Telephone Encounter - Jf Bahena RPH - 10/08/2015 1:54 PM PDTHospital Follow-Up Phone Call Date discharged: 10/06/15 Primary Diagnosis: PNA/COPD Education done/topics reviewed: 1. Health Status- Feeling better. 2. Diagnosis education- reviewed pts knowledge of primary diagnosis and provided additional education. 3. Medication Reconciliation - Medications reconciled over the phone with patient looking at prescription bottles. - 4. Reminded pt of scheduled follow-up appointment. 5. Reviewed what do in emergency as well as a non-emergent situation. Verified pt has doct or's contact information. Date of follow-up appointment with PCP: 10/14 documented in this en counter Plan of Treatment +--------+---------+ + + + | Date | Type | Specialty | Care Team | Description | +--------+---------+ + + + | 03/06/ | Office | Rheumatology | Santosh Sumner, | | | 2019 | Visit | | [address] | | | | | | [facility] | | | | | | [place] [address] | | | | | | [phone] | | | | | | | | +--------+---------+ + + + documented as of this encounter Visit Diagnoses Not on filedocumented in this encounter"
--- OUTSIDE RECORDS SUMMARY | ~2019-12-28 | XMS | Encounter Summary ---
Demographics + + + | Address | [address] | | | [place] [address] | + + + | Home Phone [...] [place] | | | | | [address] | | + + + + + Care Team Providers + +------+ + | Care Lien Searcher Name | Role | Phone | + +------+ + | Davis Ivan MD | PCP | | + +------+ + Encounter Details +--------+ + + + + | Date | Type | Department | Care Team | Description | +--------+ + + + + | 05/20/ | Hospital | [facility] | Conversion | Pain | | 2018 | Encounter | CONVERSION [address] | Transaction, | | | | | [place] | Provider Unknown | | | | | [place] | [phone] | | | | | [address] | | | | | | [phone] | | | +--------+ + + + [...] | 2019 | Visit | | [address] | | | | | | [facility] | | | | | | [facility] [place] [address] | | | | | | [phone] | | | | | | | [...] + + | Raoul Lockwood Kristel - 01/12/2019 6:32 AM PDT This is a non-reportable procedure | | without a radiologist report and isused for image storage only | + + documented in this encounter Visit Diagnoses + + | Diagnosis | + + | Pain Generalized pain | + + documented in this encounter"
--- OUTSIDE RECORDS SUMMARY | ~2019-12-28 | XMS | Encounter Summary ---
Demographics + + + | Address | [address] | | | [place] [address] | + + + | Home Phone [...] Author + + + | Author | [facility] | + + + | Organization | [facility] | + + + | Address | Unknown | + + + | Phone | Unavailable | + + + Support + + +---------+ + | Name | Relationship | Address | Phone | + + +---------+ + | Mirza Bee | ECON | Unknown | | + + +---------+ + Care Team Providers + +------+ + | Care Paper Roll Machine Operator Name | Role | Phone [...] [address] | | | | | | [place] | | | | | | [address] | | | +--------+ + + + [...]
--- OUTSIDE RECORDS SUMMARY | ~2019-12-28 | XMS | Encounter Summary ---
Demographics + + + | Address | [address] | | | [place] [address] | + + + | Home Phone [...] [place] | | | | | [address] | | + + + + + Care Team Providers + +------+ + | Care Roll Or Tape Edge Machine Operator Name | Role | Phone [...] + + | 08/07/ | Hospital | [facility] | Adelita Lu MD | Recurrent squamous | | 2015 | Encounter | [facility] | Need updated | cell carcinoma of | | | | [facility] [address] | address | lung, unspecified | | | | [address] [place] | | laterality (HCC) | | | | [place] [address] | | (Primary Dx) | | | | [phone] | | | +--------+ + + + [...] 08/07/2014 9:46 AM PDT Hem-Onc Progress Note [facility] Patient name:Thea Carmona : 1945 Age: 69 y.o. CSN: [id number] Date of Service: 08/07/2014 Identifying Statement: Thea [...] lewis 2.CT-guided biopsy by interventional radiology at [facility] of the right lung massshows [...] [facility] for consideration of broncho scopy, right [...] [facility] on simvastatin Hypertension on [...] mg by mouth Daily. RESPIRATORY THERAPY SUPPLIES [facility] ResMed S9 auto CPAP 5-9 cm H2O. Heater and Humidifier . All necessary supplies. AHI 11.6. Diagnosis Code(s)327.23, also has co morbid hypertension , history of stroke. Length of Need 99 months. Please send order to [facility]. RESPIRATORY THERAPY SUPPLIES [facility] Respironics autotitrating CPAP at 5-9 cm H2O [...] 0.00-0.10 K/uL Imaging: PET/CT scan June 2014: [facility]: Necrotic right lung lesion wit h [...] this chart may have been created with [employer] voice recognition software. Occasi onal wrong-word or [...] | 2019 | Visit | | [address] | | | | | | [facility] | | | | | | [place] [address] | | | | | | [phone] | | | | | | | | +--------+---------+ + + + documented as of this encounter Visit Diagnoses + + | Diagnosis | + + | Recurrent squamous cell carcinoma of lung, unspecified laterality (HCC) - Primary | + + documented in this encounter
--- OUTSIDE RECORDS SUMMARY | ~2019-12-28 | XMS | Encounter Summary ---
Demographics + + + | Address | [address] | | | [place] [address] | + + + | Home Phone [...] [place] | | | | | [address] | | + + + + + Care Team Providers + +------+ + | Care Cook Dinner Name | Role | Phone | + +------+ + | Caitlin Chino MD | PCP | | + +------+ + Encounter Details +--------+ + + + + | Date | Type | Department | Care Team | Description | +--------+ + + + + | 06/16/ | Hospital | [facility] | Eveline Jaffe | Chronic obstructive | | 2019 | Encounter | MED CTR PULMONARY | MD Raul [address] | pulmonary disease, | | | | FUNCTION [address] | [address] [place] | unspecified COPD | | | | [address], | [place] [address] | type (HCC) | | | | [place] [address] | [phone] | | | | | [phone] | | | +--------+ + + + [...] | | | | type ([facility]) | | | | | | + + + +---------+ + + | benzonatate | take 1 capsule by | | 0 | 06/10/19 | | | (TESSALON) 100 mg | mouth three times a | | | 20 | | | capsule | day if needed for | | | | | | | cough | | | | | + + [...] + +---------+ + + | DULoxetine | Daily. | | 0 | | | | (DRIZALMA NEERULE) | | | | | | | [address] capsule | [...] CASIE: | | | | | | UTKAELCE) | lifetime | | | | | [...] + + + +---------+ + + | spironolactone | take 1 tablet by | | 0 | 06/09/19 | | | (ALDACTONE) 25 mg | mouth once daily - | | | 20 | | | tablet | WATER PILL FOR LEG | | | | | | | SWELLING | | | | | + + [...] 2 mLs by | 120 mL | 0 | 06/16/19 | | | (PULMICORT) 0.5 mg/2 | nebulization 2 times | | | 20 | 0 | | mL nebulizer | daily. Duration: | | | | | | solution | Lifetime Dx: COPD | | | | | | | J44.9 | | | | | + + + +---------+ + + | methotrexate 2.5 | take 8 tablets by | 32 | 2 | 06/10/19 | | | mg | mouth every week | tablet | | 20 | 0 | | tabletIndications: | | | | [...] documented as of this encounter Procedure Notes Eveline Jaffe MD - 06/16/2019 1:00 PM PSTAssociated Order(s): PFT PULMONARY FUNCTION TESTING ORDERSProcedure(s): PFT PULMONARY FUNCTION TESTING ORDERSPre-Procedure Diagnose(s): Chronic obstructive pulmonary disease, unspecified COPD type (HCC) PULMONARY FUNCTION TESTING SPIROMETRY: The pre-FVC was 2.22 L or 86 % of predicted. The pre-FEV1 was 1.22 L or 63 % of predicted. Pre-FEV1/FVC ratio was 55 %. The post-FVC was 2.48 L or 96 % of predicted. The p ost-FEV1 was 1.41 L or 72 % of predicted. Post-FEV1/FVC ratio was 57 %. LUNG VOLUMES: The total lung capacity was 4.15 L or 86 % of predicted. The residual volume was 1.85 L or 83 % of predicted. RV/TLC ratio was 45 % of predicted. DIFFUSION CAPACITY: The diffusion capacity was 8.9 mL/mmHg per minute or 41 % of predicted. IMPRESSION: Spirometry is consistent with mild obstructive physiology. A significant bronc hodilator response was seen. Lung volume testing is consistent with normal physiology. Diff usion capacity is moderately reduced and is not corrected for measured hemoglobin. Since pu lmonary function test done 02/07/2014, the following significant changes have occurred: FEV1 h as decreased by 25%, TLC decreased by 15%, DLCO decreased by 26%. Test performed: 06/16/2019 Electronically signed by: Eveline Jaffe MD, MD 06/17/2019 10:40 AM [facility] documented in this encounter Plan of Treatment +--------+---------+ + + + | Date | Type | Specialty | Care Team | Description | +--------+---------+ + + + | 03/06/ | Office | Rheumatology | Santosh Sumner, | | | 2019 | Visit | | [address] | | | | | | [facility] | | | | | | [place] [address] | | | | | | [phone] | | | | | | | | +--------+---------+ + + + documented as of this encounter Procedures + +--------+ + + + | Procedure Name | Priori | Date/Time | Associated Diagnosis | Comments | | | ty | | | | + +--------+ + + + | PFT PULMONARY | ZEYNEP | 06/16/2019 | Chronic | Results for this | | FUNCTION TESTING | | 1:00 PM | obstructive | procedure are in the | | ORDERS | | PST | pulmonary disease, | results section. | | | | | unspecified COPD | | | | | | type (HCC) | | + +--------+ + + + documented in this encounter Results Pulmonary function test full PFT (06/16/2019 1:00 PM PST) + + + | Narrative | Performed At | + + + | Eveline Carter | | | MD Ld 06/17/2019 10:44 AM PULMONARY FUNCTION TESTING | | | SPIROMETRY: The pre-FVC was 2.22 L or 86 % of predicted. The pre-FEV1 | | | was 1.22 L or 63 % of predicted. Pre-FEV1/FVC ratio was 55 %. The | | | post-FVC was 2.48 L or 96 % of predicted. The post-FEV1 was 1.41 L or | | | 72 % of predicted. Post-FEV1/FVC ratio was 57 %. LUNG VOLUMES: The | | | total lung capacity was 4.15 L or 86 % of predicted. The residual | | | volume was 1.85 L or 83 % of predicted. RV/TLC ratio was 45 % of | | | predicted. DIFFUSION CAPACITY: The diffusion capacity was 8.9 mL/mmHg | | | per minute or 41 % of predicted. IMPRESSION: Spirometry is | | | consistent with mild obstructive physiology. A significant | | | bronchodilator response was seen. Lung volume testing is consistent | | | with normal physiology. Diffusion capacity is moderately reduced and | | | is not corrected for measured hemoglobin. Since pulmonary function | | | test done 02/07/2014, the following significant changes have occurred: | | | FEV1 has decreased by 25%, TLC decreased by 15%, DLCO decreased by | | | 26%. Test performed: 06/16/2019Electronically signed by: Eveline Jaffe, | | | MD [place] [facility]2019 [facility] | | |[facility]. A significant bronchodilator response was seen. | | |Lung volume testing is consistent with normal physiology. | | |Diffusion capacity is moderately reduced and is not corrected for | | |measured hemoglobin. Since pulmonary function test done | | |02/07/2014, the following significant changes have occurred: FEV1 | | |has decreased by 25%, TLC decreased by 15%, DLCO decreased by | | |26%. | | | | | |Test performed: 06/16/2019 | | |Electronically signed by: Eveline Jaffe MD, MD 06/17/2019 10:40 AM | | |[facility] | | + + + documented in [...] 2.5 mg/3 mL nebulizer | Given | 06/16/19 | 2.5 mg | | | | solution 2.5 mg 2.5 mg, | | 20 1:26 | | | | | Nebulization, RT Once, Adele | | PM PST | | | | | 06/16/19 at 1345, For 1 dose, RT | | | | | | | will administer., | | | | | | + +--------+ +--------+------+------+ +---+---+ | | | +---+---+ documented in this encounter"
--- OUTSIDE RECORDS SUMMARY | ~2019-12-28 | XMS | Encounter Summary ---
Demographics + + + | Address | [address] | | | [place] [address] | + + + | Home Phone [...] [place] | | | | | [address] | | + + + + + Care Team Providers + +------+ + | Care Wood Die Maker Name | Role | Phone | + +------+ + | Davis Ivan MD | PCP | | + +------+ + Encounter Details +--------+ + + + + | Date | Type | Department | Care Team | Description | +--------+ + + + + | 09/07/ | Hospital | [facility] | Offenstein, | Leg edema, left | | 2015 | Encounter | MED CTR ULTR[facility]OUND | Ayana Looney MD | | | | | [address] [place] | [place] | | | | | [place] | A, Technologist | | | | | [address] | [place] | | | | | [phone] | [address] | | +--------+ + + + + [...] | 03/06/ | Office | Rheumatology | Kimbunny Santosh, | | | 2019 | Visit | | [address] | | | | | | [place] | | | | | | [place] [address] | | | | | | [phone] | | | | | | | [...] cancer. COMPARISON: None. PROTOCOL: Candelaria scale | [facility] | | and Doppler images of [...] | Claudia's nurse 1604 p.m. by the damascener. Dictated and | | | Signed by: [...] Dr. Ayana Taylor's nurse 1604 p.m. bythe damascener.Dictated and Signed by: | | Matheus Kapadia [...] Taylor's nurse 1604 p.m. by | |the damascener. | | | |Dictated and Signed by: Matheus Kapadia MD | | Electronically signed: 09/07/2014 4:43 PM | + + + + + + + | Performing | Address | City/State/Zipcode | Phone Number | | Organization | | | | + + + + + | [facility] | [address] | [place], [place] | [phone] | | [facility] | | [address] | | | - IMAGING | | | | + + + + + documented in this encounter Visit Diagnoses + + | Diagnosis | + + | Leg edema, left Edema | + + documented in this encounter"
--- OUTSIDE RECORDS SUMMARY | ~2019-12-28 | XMS | Encounter Summary ---
Demographics + + + | Address | [address] | | | [place] [address] | + + + | Home Phone [...] [place] | | | | | [address] | | + + + + + Care Team Providers + +------+ + | Care Sharepoint Solutions Architect Name | Role | Phone | [...] | Cervical | Rose Mary | Anselmo Horvath MD [address] | | | Required | Rehabilitatio | dystonia | [place] | [address] | | | | n | Chronic | [address] | [place], | | | | | nonintractab | [place] | [place] [address] | | | | | le headache, | STREET | Phone: | | | | | unspecified | [address] | [phone] | | | | | headache | [place], | Fax: | | | | | type | [place] [address] | [phone] | | | | | Procedures | Phone: | | | | | | DOS 08/08/19 | [phone] | | | | | | Botox | Fax: | | | | | | consult with | [phone] | | | | | | Dr. Santos | | | +--------+ + + + + + Reason for Visit + + + | Reason | Comments | + + + | Follow-up | | + + + | Back Pain | | + + + | Neck Pain [...] | spondylosis | [address] | [address] | | | | n | Procedures | Epi [place] | [place], | | | | | Follow up | [place], | [place] [address] | | | | | DOS | [place] [address] | Phone: | | | | | 06/08/2019 | Phone: | [phone] | | | | | | [phone] | Fax: | | | | | | Fax: | [phone] | | | | | | [phone] | | + +--------+ + + + + Encounter Details +--------+---------+ + + + | Date | Type | Department | Care Team | Description | +--------+---------+ + + + | 07/07/ | Office | [facility] | Rose Mary Gates | Failed back syndrome | | 2020 | Visit | PHYSIATRY [address] | [place] [address] | (Primary Dx); | | | | [facility] [address] | [facility] SU[address] | Cervical dystonia; | | | | [place] | [address] [place], [place] | Chronic | | | | [address] | [address] | nonintractable | | | | [phone] | | headache, | | | | | | unspecified headache | | | | | | type | +--------+---------+ + + + Social [...] + + + | Blood Pressure | 141/79 | 07/07/2019 11:12 AM | | | | | PST | | + + + + + | Pulse | 87 | 07/07/2019 11:12 AM | | | | | PST | | + + + + + | Temperature | - | - | | + + + + + | Respiratory Rate | 18 | 07/07/2019 11:12 AM | | | | | PST | | + + + + + | Oxygen Saturation | - | - | | + + + + + | Inhaled Oxygen | - | - | | | Concentration | | | | + + + + + | Weight | 64.4 kg (142 lb) | 07/07/2019 11:12 AM | | | | | PST | | + + + + + | Height | 157.5 cm (5' 2") | 07/07/2019 11:12 AM | | | | | PST | | + + + + + | Body Mass Index | 25.97 | 07/07/2019 11:12 AM | | | | | PST [...] of this encounter Patient Instructions Patient Instructions Rose Mary Gates PA-C - 07/07/2019 11:20 AM PST Today we discussed that although you have some arthritis in your neck below your fusion at your insurance does not cover injections in the facet joints. Your insurance would only cov er a portion of your spinal cord stimulator and you have elected not to pursue this option. I would like to refer you back to Dr. santos for consideration of Botox for cervical dystoni a. OnabotulinumtoxinA injection (Medical Use) Brand Name: Botox What is this medicine? ONABOTULINUMTOXINA (o na GILLIAN you lye num tox in ) is a neuro-muscular pravin. This medi cine is used to treat crossed eyes, eyelid spasms, severe neck muscle spasms, ankle and toe muscle spasms, and elbow, wrist, and finger muscle spasms. It is also used to treat excessiv e underarm sweating, to prevent chronic migraine headaches, and to treat loss of bladder con trol due to neurologic conditions such as multiple sclerosis or spinal cord injury. How should I use this medicine? This medicine is for injection into a muscle. It is given by a health anesthesiologist and critical care in a hospital or clinic setting. Talk to your public area attendant regarding the use of this medicine in children. While this drug m ay be prescribed for children as young as 12 years old for selected conditions, precautions do apply. What side effects may I notice from receiving this medicine? Side effects that you should report to your doctor or health anesthesiologist and critical care as soon as p ossible: allergic reactions like skin rash, itching or hives, swelling of the face, lips, or tong ue breathing problems changes in vision chest pain or tightness eye irritation, pain fast, irregular heartbeat infection numbness speech problems swallowing problems unusual weakness Side effects that usually do not require medical attention (report to your doctor or health anesthesiologist and critical care if they continue or are bothersome): bruising or pain at site where injected drooping eyelid dry eyes or mouth headache muscles aches, pains sensitivity to light tearing What may interact with this medicine? aminoglycoside antibiotics like gentamicin, neomycin, tobramycin muscle relaxants other botulinum toxin injections What if I miss a dose? This does not apply. Where should I keep my medicine? This drug is given in a hospital or clinic and will not be stored at home. What should I tell my health care provider before I take this medicine? They need to know if you have any of these conditions: breathing problems cerebral palsy spasms difficulty urinating heart problems history of surgery where this medicine is going to be used infection at the site where this medicine is going to be used myasthenia gravis or other neurologic disease nerve or muscle disease surgery plans take medicines that treat or prevent blood clots thyroid problems an unusual or allergic reaction to botulinum toxin, albumin, other medicines, foods, dye s, or preservatives or trying to get breast-feeding What should I watch for while using this medicine? Visit your doctor for regular check ups. This medicine will cause weakness in the muscle where it is injected. Tell your doctor if y ou feel unusually weak in other muscles. Get medical help right away if you have problems wi th breathing, swallowing, or talking. This medicine might make your eyelids droop or make you see blurry or double. If you have w eak muscles or trouble seeing do not drive a car, use machinery, or do other dangerous activ ities. This medicine contains albumin from human blood. It may be possible to pass an infection in this medicine, but no cases have been reported. Talk to your doctor about the risks and shaina efits of this medicine. If your activities have been limited by your condition, go back to your regular routine slo wly after treatment with this medicine. NOTE:This sheet is a summary. It may not cover all possible information. If you have questi ons about this medicine, talk to your doctor, pharmacist, or health care provider. Copyright 2019 [employer] documented in this encounter Progress Notes Rose Mary Gates PA-C - 07/07/2019 11:20 AM PSTFormatting of this note might be diffe rent from the original. Krysta Gates PA-C [address] [facility], [address] [place] [address] FAX: PHYSICAL MEDICINE AND REHABILITATION H&P CHIEF COMPLAINT: Chief Complaint Patient presents with Follow-up Back Pain Neck Pain HISTORY OF PRESENT ILLNESS: Thea Carmona s a 74 y.o. female being seen today at t he request of Caitlin Chino MD for the complaint of bilateral low back pain. The symptoms have been gradually worsening. Thea Carmona has history of lumbar fusion x2. She r eturns today for follow-up to discuss additional treatment options. It was previously recom mended that she be considered for spinal cord stimulation however her insurance does not cov er this to the extent that she is able to afford this. X-rays were also obtained by Dr. Sarah lozada of the cervical spine with results called to the patient. Was recommended that she also follow-up to discuss her images. Thea Carmona rates the pain as severe. She reports neck pain greater than low michael k pain and has a C4-6 fusion as well as an L4-S1 fusion. The symptoms are continuous. Patricia Carmona describes the pain as throbbing. Patient reports daily headaches that hav e progressed recently rated a 6/10 that include her left occipital parietal and frontal area s. She has on a few occasions taken half of a diclofenac to help ease her symptoms. This i s a prescription of her 's. She has found this helps her sleep. Thea Carmona does not describe lower extremity [...] weakne ss due to history of stroke. Teha Carmona reports history of chronic opiate use for about 3 years. PAST MEDICAL HISTORY: Past Medical History: Diagnosis Date Acid reflux disease Acute recurrent pansinusitis Acute sinusitis 09/14/2013 AF (paroxysmal atrial fibrillation) ([facility]) Alcohol abuse quit in 05/2012; 40 year habit Anemia Angina of effort ([facility]) Arrhythmia Arthritis Bursitis of left shoulder Conjunctivitis COPD (chronic obstructive pulmonary disease) ([facility]) on albuterol COPD exacerbation ([facility]) Depression HONG (dyspnea on exertion) Folliculitis Full dentures upper & lower GERD (gastroesophageal reflux disease) Hemorrhoids, internal, with bleeding Hx of blood clots Hyperlipidemia on simvastatin Hypertension on clonidine and lisinopril Hypothyroidism 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 Lewis [place] Right wrist pain Spinal stenosis has tried cortisone injections Spondylolisthesis of cervical region Sputum culture positive for Scopulariopsis species Squamous cell carcinoma of lung (HCC) 07/2013 right lower lobe Stroke (HCC) 2006 Stroke (HCC) 2008 left sided weakness Thyroid disease Unspecified visual disturbance Upper GI bleed 06/[address] [facility] Vitamin D deficiency Wears dentures PAST SURGICAL HISTORY: Past Surgical History: Procedure Laterality Date BLADDER SUSPENSION 2000 BRONCHOSCOPY 07/11/2014 EBUS with right hilar LN biopsy, [facility] Dr. Sierra BRONCHOSCOPY N/A 09/16/2013 R. Thorascopic Lower Lobectomy and Thoracic Lymphadenectomy; Laterality: N/A Chest Right S urgeon: José Miguel Mace Jr., MD; Location: [facility] MAIN OR CATARACT REMOVAL CERVICAL FUSION Posterior 04/06/2013 with decompression C4-C6 Surgeon: Silviano Cabrera MD Location: [facility] MAIN OR CERVICAL FUSION Anterior 01/19/2013 C4-6 Surgeon: Silviano Cabrera MD; Location: [facility] MAIN OR CHOLECYSTECTOMY 2000 COLONOSCOPY 06/2014 ENDOSCOPY [...] [facility] Arthroplasty; Surgeon: Giuliano Padilla MD; Location: [facility] MAIN O R INJECTION STEROIDAL Right 05/27/2012 L5 S1 TFESI INJECTION STEROIDAL Right 07/15/2012 Caudal Block with Cath Target R L5,S1 LOBECTOMY Right 09/16/2013 right lower lobe with bronchoscopy LUMBAR FUSION Anterior 03/29/2014 L4-5, L5-S1 Surgeon: Silviano Cabrera MD; Location: [facility] MAIN OR LUMBAR FUSION N/A 03/31/2014 with decompression; Surgeon: Silviano Cabrera MD; Location [facility] MAIN OR LUMBAR FUSION N/A 03/31/2014 L4-S1; Surgeon: Silviano Cabrera MD Location: [facility] MAIN OR LUNG BIOPSY Right 07/21/2013 right lower lobe SHOULDER SURGERY Right 12/2011 PENNY AND BSO 1974 THORACOSCOPY Right 09/16/2013 Surgeon: José Miguel Mace Jr., MD; Location: [facility] MAIN OR THUMB SURGERY 12/02/2011 TONGUE SURGERY benign per pt TUNNELED VENOUS PORT PLACEMENT N/A 07/28/2014 Procedure: Port Placement; Surgeon: Chalino Chiu MD; Location: [facility] MAIN OR CURRENT MEDICATIONS: Current Outpatient [...] Supplies (NEBULIZER/TUBING/MOUTHPIECE) KIT Use as directed with ObsEva ulizer machine. Dx: COPD CASIE: lifetime 1 [...] Asthma Other Diabetes Other REVIEW OF SYSTEMS: Review of Systems Musculoskeletal: Positive for back pain, joint pain, myalgias and neck pain. GENERALLY: No fever, no night sweats, no [...] no rheumatoid arthritis. PHYSICAL EXAMINATION: Blood pressure 141/79, pulse 87, resp. rate 18, height 1.575 m (5' 2"), weight 64.4 kg (142 lb), not currently . Body mass index is 25.97 kg/m. GENERAL: She does appear uncomfortable when [...] has no apparent deficits with short or medical terminologist memory. She has appropriate fund of knowledge [...] PATELLAR 3+ 3+ ACHILLES 1+ 1+ MUSCULOSKELETAL patient walks with an antalgic gait. She has deformity of the cervical sp ine with leftward curvature and tenderness in the paraspinal musculature, trapezius musculat ure and rhomboid musculature. RADIOGRAPHIC REVIEW: Lumbar MRI com pleted on 03/22/18 shows status post L4-S1 fusion without recurrent disc he rniation. There is moderate central canal stenosis at L 4 5 due to diffuse disc bulge. M ild central stenosis at L3-4 due to disc bulge and moderate right neuroforaminal narrowing a t L5-S1. Chronic compression fracture at L1. Cervical x-rays from 04/22/2019 show prominent to space narrowing is evident C6-7 with mult ilevel facet hypertrophy. Mild anterior listhesis at C2-3, C3-4 and C4-5 persist with cervi roderick flexion and extension. Intact fusion hardware at C4-6. X-ray shows obvious leftward cu rvature deformity on AP view. IMPRESSION: 1. Failed back syndrome 2. Cervical dystonia 3. Chronic nonintractable headache, unspecified headache type PLAN: 1. Thea Carmona presents to clinic today with chief complaint of low back pain. Ba sed on review of symptoms and exam Thea Carmona symptoms are most consistent with f eklvin back syndrome and chronic pain. Today we discussed treatment options including spinal cord stimulator, medication treatment options and physical therapy. Unfortunately her insu jose manuel does not cover spinal cord stimulation to the effect that she would be comfortable sushma n the difference. She has declined psychological evaluation at this point due to this cost. 2. We did discuss cervical facet work-up with a referral to Dr. Funes. This may be cons idered in the future. Initially I was concerned that her [employer] insurance would not cover in jections however this is secondary to her Medicare. 3. Patient does have a history of prior stroke and is exhibiting signs of cervical dystoni a probably contributing to tension on her cervical spine and increasing cervical pain. I wo uld recommend she be evaluated by Dr. Tom Restrepo for Botox consideration. 4. Thea Carmona should return to clinic as schedule to review physical therapy an d discuss neck pain. If Botox is not advised or not covered then I would recommend referral to Dr. Funes for cervical facet work up. IKrysta PA-C personally performed the services described in this documentatio n, as scribed by in my presence, KEVIN Guajardo and are both accurate and complete . Krysta Gates PA-C - 07/07/2019 documented in this encounter Plan of Treatment +--------+---------+ + + + | Date | Type | Specialty | Care Team | Description | +--------+---------+ + + + | 03/06/ | Office | Rheumatology | Santosh Sumner, | | | 2019 | Visit | | [address] | | | | | | [facility] | | | | | | [place] [address] | | | | | | [phone] | | | | | | | | +--------+---------+ + + + +-------+ +--------+ + + | Name | Type | Priori | Associated Diagnoses | Order Schedule | | | | ty | | | +-------+ +--------+ + + | SANTOS | Outpatient | Routin | Cervical dystonia | Ordered: 07/07/2019 | | | Referral | e | Chronic | | | | | | nonintractable | | | | | | headache, | | | | | | unspecified headache | | | | | | type | | +-------+ +--------+ + + documented as of this encounter Visit Diagnoses + + | Diagnosis | + + | Failed back syndrome - Primary Other unspecified back disorder | + + | Cervical dystonia Spasmodic torticollis | + + | Chronic nonintractable headache, unspecified headache type | + + documented in this encounter
--- OUTSIDE RECORDS SUMMARY | ~2019-12-28 | XMS | Encounter Summary ---
Demographics + + + | Address | [address] | | | [place] [address] | + + + | Home Phone [...] [place] | | | | | [address] | | + + + + + Care Team Providers + +------+ + | Care Application Developer Name | Role | Phone | + +------+ + | Caitlin Chino MD | PCP | | + +------+ + Reason for Visit + + + | Reason | Comments | + + + | Follow-up | 6 month COPD follow up | + + + Follow Up (Routine) +--------+--------+ + + + + | Status | Reason | Specialty | Diagnoses / | Referred By | Referred To | | | | | Procedures | Contact | Contact | +--------+--------+ + + + + | Closed | | Pulmonology | Diagnoses | [place], | Eveline Jaffe | | | | | COPD, | Caitlin Mccray MD | MD Raul | | | | | severe (HCC) | [address] | [address] [place] | | | | | Procedures | Epi [place] | [facility] | | | | | F/U - APPT | [place], | [place] | | | | | [address] | [place] [address] | [address] Phone: | | | | | JONATHAN | Phone: | [phone] | | | | | | [phone] | Fax: | | | | | | Fax: | [phone] | | | | | | [phone] | | +--------+--------+ + + + + Encounter Details +--------+---------+ + + + | Date | Type | Department | Care Team | Description | +--------+---------+ + + + | 03/16/ | Office | [facility] | Eveline Jaffe | Dyspnea on exertion | | 2019 | Visit | PULMONARY [address] | MD Raul [address] | (Primary Dx); | | | | [place], | [address] [address] [place] | Chronic obstructive | | | | [place] [id number] | [place] [address] | pulmonary disease, | | | | [phone] | [phone] | unspecified COPD | | | | [...] for follow-up. - Patient follows with Dr. aPrk for lung cancer. She reports that she [...] for treatment of a chronic sinus in pending sale to [facility]. She reports that she is to complete [...] solution 3 mL Pulmonary function test PFT [facility] COPD We will need repeat [...] outside imaging. More than 30 minutes spent [id number] with patient with more than half the [...] | 2019 | Visit | | [address] | | | | | | [facility] | | | | | | [place] [address] | | | | | | [phone] | | | | | | | [...] + documented as of this encounter Results Pulmonary function test full PFT (06/16/2019 1:00 PM PST) + + + | Narrative | Performed At | + + + | Eveline Carter | | | MD Jonathan 06/17/2019 10:44 AM PULMONARY FUNCTION TESTING | [...] | | | MD DESHA[facility] | |[facility]iology. A significant bronchodilator [...] MD, MD 06/17/2019 10:40 AM | | |[facility] | | + + + documented in this encounter Visit Diagnoses + + | Diagnosis | + + | Dyspnea on exertion - Primary Other dyspnea and respiratory abnormality | + + | Chronic obstructive pulmonary disease, unspecified COPD type (HCC) | + + documented in this encounter
--- OUTSIDE RECORDS SUMMARY | ~2019-12-28 | XMS | Encounter Summary ---
Demographics + + + | Address | [address] | | | [place] [address] | + + + | Home Phone [...] [place] | | | | | [address] | | + + + + + Care Team Providers + +------+ + | Care Beamer Hand Name | Role | Phone | + +------+ + | Davis Ivan MD | PCP | | + +------+ + Encounter Details +--------+ + + + + | Date | Type | Department | Care Team | Description | +--------+ + + + + | 10/11/ | Hospital | [facility] | Adelita Lu MD | Pulmonary nodules; | | 2014 | Encounter | MED CTR CHEMO | Need updated | Recurrent squamous | | | | INFUSION [address] | address | cell carcinoma of | | | | [place], | | lung, right (HCC); | | | | [place] [address] | | Malignant neoplasm | | | | [phone] | | of lower lobe of | [...] | 2019 | Visit | | [address] | | | | | | [facility] | | | | | | [place] [address] | | | | | | [phone] | | | | | | | [...] mL/min/1.73m2 | [facility] | | | [place] | | | MEDICAL | | | [...] [address] | [place] | [phone] | | [facility] | | [address] | | | - LABORATORY | | | | + + + + + BUN (10/11/2014 11:14 AM PDT) + +-------+ + + + | Component | Value | Ref Range | Performed | Pathologist | | | | | At | Signature | + +-------+ + + + | BUN | 12 | 7 - 18 mg/dL | [facility] | | | | | | [facility]. [...] [address] | [place] | [phone] | | [facility] | | [address] | | | - LABORATORY | | [...] | 0.77 | 0.60 - 1.30 | [facility] | | | | | mg/dL | [facility] | | | | | | MEDICAL | | | | | | CENTER - | | | | | | LABORATORY | | + + + + + + | eGFR, | >60Comment: GLOMERULAR | >=60 | [facility] | | | non- | FILTRATION | mL/min/1.73m2 | [facility] | | | [place] | RATE,ESTIMATED | | MEDICAL | | | | mL/min/1.55v4Hxjq than | | CENTER - | | [...] | | Protein | | | [facility] | | [...] [place]. | [address] | [place] | [phone] | | [facility] | | [address] | | | - LABORATORY | | [...] [address] | [place] | [phone] | | [facility] | | [address] | | | - LABORATORY | | [...]
--- OUTSIDE RECORDS SUMMARY | ~2019-12-28 | XMS | Encounter Summary ---
Demographics + + + | Address | [address] | | | [place] [address] | + + + | Home Phone [...] [place] | | | | | [address] | | + + + + + Care Team Providers + +------+ + | Care Casting And Pasting Supervisor Name | Role | Phone | [...] + + | 08/22/ | Office | [facility] [place] | [place], | COPD (chronic | | 2013 | Visit | PULMONARY [address] | Ayana Looney MD | obstructive | | | | [place], | | pulmonary disease) | | | | [place] [address] | | (Primary Dx); | | | | [phone] | | Squamous cell | | | [...] an appointment at [facility] to filler picker the machine and learn how to use [...] types of CPAP. Your doctor or CPAP certified hyperbaric technician will help you decide whic h type is best for you: Basic CPAPkeeps the pressure constant all night long. A bilevel devicegives out more pressure when you breathe in and less when you breathe out. An autoCPAP deviceautomatically adjusts pressure throughout the night and in response to changes such as body position, sleep stage, and snoring. [address] [place] [address]. All rights reserve d. This information is [...] is apparently planning to present [facility] at [facility]. She is currently taking prednisone at 10 [...] Pneumonia 2008 hospitalized 5 days Rheumatoid arthritis(714.0) ([facility]) on prednisone and methotrexate, Dr. Lewis Nemaha Hyperlipidemia on simvastatin Hypertension on clonidine and lisinopril Hypothyroidism GERD (gastroesophageal reflux disease) Stroke (HCC) 2007 Stroke (HCC) 2007 Fungus disease sputum culture positive for SCOPULARIOPSIS SPECIES Squamous cell carcinoma of lung (HCC) 07/2013 Past Surgical History Past Surgical History Procedure Date Hysterectomy Cholecystectomy Cervical spine surgery 2012 Bladder suspension Shoulder surgery Thumb surgery Shoulder surgery right shoulder Tongue surgery benign per pt Lung biopsy 07/21/13 right lower lobe Social History: History Social History Marital Status: Spouse Name: N/A Number of Children: N/A Years of Education: N/A 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 Boggs, and he had advised nori rasheed, which is where we are at now. [...] her with greater than 50% spent in [facility] eli and coordination of care regarding her PFT results, sleep study results. CC: Davis Ivan MD, Courtney Lu MD, Jimmy Banegas DO Portions of this report were transcribed using voice recognition software. Every effort wa s made to ensure accuracy; however, inadvertent computerized cupola repairer errors may be pre sent. Electronically signed by: Ayana Taylor MD 08/22/2013 15:26 documented in t his encounter Miscellaneous Notes Plan of Care - ONBASE SCAN WAMT - 09/16/2013 12:00 AM PDT documented in this encounter Plan of Treatment +--------+---------+ + + + | Date | Type | Specialty | Care Team | Description | +--------+---------+ + + + | 03/06/ | Office | Rheumatology | Santosh Sumner, | | | 2019 | Visit | | [address] | | | | | | [facility] | | | | | | [place] [address] | | | | | | [phone] | | | | | | | [...]
--- OUTSIDE RECORDS SUMMARY | ~2019-12-28 | XMS | Encounter Summary ---
Demographics + + + | Address | [address] | | | [place] [address] | + + + | Home Phone [...] [address] | | | | | [address] | | + + + + + Care Team Providers + +------+ + | Care Planer Stone Name | Role | Phone | + +------+ + | Davis Ivan MD | PCP | | + +------+ + Reason for Visit + +--------+ + | Reason | Onset | Comments | | | Date | | + +--------+ + | Medication Refill | 08/23/ | | | Assistance | 2014 | | + +--------+ + Encounter Details +--------+ + + + + | Date | Type | Department | Care Team | Description | +--------+ + + + + | 08/23/ | Telephone | [facility] | [place], | Medication Refill | | 2014 | | PULMONARY [address] | Ayana Looney MD | Assistance | | | | [place], | | | | | | [place] [address] | | | | | | [phone] | | | +--------+ + + + [...] Telephone Encounter - Blessing Lopez RN - 08/23/2014 10:16 AM PDTNotified Thea of our conversation and [facility] going to sheepskin pickler refill today. Sent refill to [facility] electronically per protocol.Electronically signed by Blessing Lopez RN at 015 10:32 AM PDTTelephone Encounter - Blessing Lopez RN - 08/23/2014 10:14 AM PDTCalled [facility]agan at [facility] and she said she is just out of refills and will send us a refill reque st. elephone Encou nter - Blessing Lopez RN - 08/23/2014 10:11 AM PDTPatient calls to say the pharmacy naima d her she could not refill her Symbicort until 09/08/14, that it was too early. I asked her i f she was taking 2 puffs twice a day. We had ordered 1 inhaler plus 11 refills on 08/22/13. E lectronically signed by Blessing Lopez RN at 08/23/2014 10:12 AM PDTdocumented in this e ncounter Plan of Treatment +--------+---------+ + + + | Date | Type | Specialty | Care Team | Description | +--------+---------+ + + + | 03/06/ | Office | Rheumatology | Santosh Sumner, | | | 2019 | Visit | | [address] | | | | | | [place] | | | | | | [place] [address] | | | | | | [phone] | | | | | | | | +--------+---------+ + + + documented as of this encounter Visit Diagnoses Not on filedocumented in this encounter"
--- OUTSIDE RECORDS SUMMARY | ~2019-12-28 | XMS | Encounter Summary ---
Demographics + + + | Address | [address] | | | [place] [address] | + + + | Home Phone [...] [place] | | | | | [address] | | + + + + + Care Team Providers + +------+ + | Care Dashboard Developer Name | Role | Phone | [...] + + | 09/06/ | Office | [facility] | [place], | COPD with acute | | 2016 | Visit | PULMONARY [address] | Ayana Looney MD | exacerbation (HCC); | | | | [place], | | Essential | | | | [place] [address] | | hypertension; | | | | [phone] | | Recurrent squamous | | | [...] Pneumonia 2008 hospitalized 5 days Rheumatoid arthritis(714.0) ([facility]) on prednisone and methotrexate, Dr. 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 Sierra Tunneled venous port placement N/A 07/28/2014 Procedure: Port Placement; Surgeon: Chalino Chiu MD; Location: [facility] MAIN OR Colonoscopy 06/2014 Endoscopy Hand arthroplasty Left 03/20/2015 Procedure: Left 1st C.M.C. 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 It shows marked uptake in the right hilar/mediastinal region. Overnight oximetry was done on June 11, 2015 on room air and was reviewed and interprete d in clinic today. It shows she spent 4 minutes with a saturation less than 88%. oLkesh Park MD's notes were reviewed in clinic [...] made to ensure accuracy; however, inadvertent computerized dietary supervisor errors may be pre sent. documented in this encounter Plan of Treatment +--------+---------+ + + + | Date | Type | Specialty | Care Team | Description | +--------+---------+ + + + | 03/06/ | Office | Rheumatology | Santosh Sumner, | | | 2019 | Visit | | [facility] [address] | | | | | | [facility] | | | | | | [place] [address] | | | | | | [phone] | | | | | | | [...]
--- OUTSIDE RECORDS SUMMARY | ~2019-12-28 | XMS | Encounter Summary ---
Demographics + + + | Address | [address] | | | [place] [address] | + + + | Home Phone [...] [place] | | | | | [address] | | + + + + + Care Team Providers + +------+ + | Care Ballistics Professor Name | Role | Phone | [...] | | | [place] | | [place] [address] | | | | | finger, left | | Phone: | | | | | index | | [phone] | | | | | finger | | Fax: | | | | | [place] | | [phone] | | | | | finger, left [...] + + | 12/14/ | Anesthesia | [facility] | [place], | | | 2019 | Event | MED CTR OR INTRA OP | Davis Alvarenga MD | | | | | [address] | [address] | | | | | [place] | [place] | | | | | [address] | [address] | | | | | [phone] | | | +--------+ + + + [...] +----+---+ + + | | 1 | [place] | | | | 2 | 43-degrees [...] encounter OR Notes Anesthesia Postprocedure Evaluation - Davis Jauregui MD - 12/14/2018 1:38 PM PDTF ormatting of this note might be different from the original. ANESTHESIA POSTANESTHESIA EVALUATION Theatanesha Lyonsanderson Carmona 73 y.o. female 1945 [id number] Procedure(s) Left Thumb Trigger Finger Release, Left Index Trigger Finger Release, Left Lo ng Trigger Finger Release, Left Ring Trigger Finger Release (Left Finger) Cooperates? Yes Mental Status Performs simple tasks. Respiratory Satisfactory - Airway patent (self maintained). Cardiovascular Satisfactory - Blood pressure and heart rate acceptable Temperature Satisfactory Pain Satisfactory N/V Control Satisfactory Hydration Satisfactory - No signs of dehydration Vitals Value Taken Time Temp Pulse 78 12/14/2018 12:39 Resp 18 12/14/2018 12:39 BP 140/60 12/14/2018 12:39 Arterial Line BP Arterial Line BP 2 SpO2 94 % 12/14/2018 12:39 Electronically signed by Davis Jauregui MD 12/14/2018 13:39 [facility] nesthesia Preprocedure Evaluation - Davis Jauregui MD - 12/13/2018 6:55 PM PDT ANESTHESIA PREANESTHESIA EVALUATION Thea Carmona 73 y.o. female 1945 [id number] Procedure(s): Left Thumb Trigger Finger Release, Left Index Trigger Finger Release, Left Lo ng Trigger Finger Release, Left Ring Trigger Finger Release (Left Finger) Medical,anesthesia, drug, allergy histories reviewed, NPO status verified. . Review of Systems / Med History Cardiovascular (+) hypertension, (+) PVD: . Pulmonary (+) shortness of breath, pneumonia, Chronic Obstructive Pulmonary Disease. (+) sleep apnea. Gastrointestinal/Hepatic (+) hypercholesterolemia. (+) acid reflux. Endocrine (+) hypothyroidism. (+) obesity: Hematology/Other On coumadin. (+) coagulopathy. Cancer (+) lung cancer. Neuromuscular (+) arthritis, CVA, chronic pain. Physical Exam Airway MP II, TM >3 FB, Mouth opening >2 FB. Neck: full ROM, extends >30 degrees. Jaw protrus ion normal. Dental ; (+) dentures-lower and dentures-upper. CV Rhythm regular. (-) murmur. Pulm (+) wheezing. Anesthesia Plan ASA 3 (copd, cva) Type: TIVA. Induction: Intravenous. Potential problems: None anticipated. Monitors: Standard ASA monitors. Additional comments: Discussed mac/tiva with patient with local by surgeon with patient. She is agreeable and understands likelihood of awareness. PO C INR is 7, Dr. Padilla ok to proceed. preop duoneb Consent statement:Anesthetic plan, alternatives, risks and benefits discussed with patient. heart problems, perioperative CV events, respiratory events. Consenting person understands and agrees to proceed . PARQ. PARQ for TIVA, possible need for airway intervention, and expressly discussed risk of poss ible aspiration and hypoxemia.. documented in this encounter Miscellaneous Notes Anesthesia Post-op Handoff - Davis Jauregui MD - 12/14/2018 12:39 PM PDT ANESTHESIA HANDOFF NOTE Thea Maryanderson Carmona 73 y.o. female 1945 [id number] The following were completed during the transfer of care: 1. Identification of patient 2. Identification of responsible practitioner (primary service) 3. Discussion of pertinent medical history 4. Discussion of the surgical/procedure course (procedure, reason for surgery, procedure pe rformed) 5. Intraoperative anesthetic management and issues/concerns 6. Expectations/plans for the early post-procedure period 7. Opportunity for questions and acknowledgement of understanding of report from receiving team Procedure(s) with comments: Left Thumb Trigger Finger Release, Left Index Trigger Finger Release, Left Long Trigger Fin casandra Release, Left Ring Trigger Finger Release - Left Thumb Trigger Finger Release, Left Inde x Trigger Finger Release, Left Long Trigger Finger Release, Left Ring Trigger Finger Release Patient Location: Phase II Handoff Protocol Used: post-procedure handoff checklist completed Condition: awake Airway/O2: other (see comments) Multimodal analgesia: multimodal analgesia not used between 6 hours prior to anesthesia sta rt to PACU discharge Analgesics allergies?: Patient does not have documented allergies to multiple classes of an algesics Comments: Supplemental Oxygen administered as necessary to maintain oxygen saturations abov e 92%. If the surgery does not typically require Narcotics then Multi-Modal Analgesia is not indic ated. The significant anesthesia concerns and VS in Epic were reviewed with the receiving team. Davis Jauregui MD 12/14/2018 12:39 [facility] documented in this encounter Plan of Treatment +--------+---------+ + + + | Date | Type | Specialty | Care Team | Description | +--------+---------+ + + + | 03/06/ | Office | Rheumatology | Santosh Sumner, | | | 2019 | Visit | | [address] | | | | | | [facility] | | | | | | [place] [address] | | | | | | [phone] | | | | | | | [...]
--- OUTSIDE RECORDS SUMMARY | ~2019-12-28 | XMS | Encounter Summary ---
Demographics + + + | Address | [address] | | | [place] [address] | + + + | Home Phone [...] [place] | | | | | [address] | | + + + + + Care Team Providers + +------+ + | Care Research Program Coordinator Name | Role | Phone [...] | | | [address] | [place] [address] | | | | | [place] [address] | | | | | | [phone] | | | +--------+ + + + [...] | 2019 | Visit | | [facility] [address] | | | | | | [place] | | | | | | [place] [address] | | | | | | [phone] | | | | | | | [...]
--- OUTSIDE RECORDS SUMMARY | ~2019-12-28 | XMS | Encounter Summary ---
Demographics + + + | Address | [address] | | | [place] [address] | + + + | Home Phone [...] Team Providers + +------+ + | Care Glue Mixer Name | Role | Phone | [...] | | | | CENTER [address] | [facility] [place] | infectious organism | | | | [place] | [place] [address] | (Primary Dx); COPD | | | | [address] | [phone] | exacerbation (HCC) | | | | [phone] | | | +--------+ + + + [...] pneumonia Stop the Augmentin Follow-up with Dr. Hendrix, call him tomorrow Return if your symptoms worsen or other concerns develop AttachmentsThe following attachments cannot be sent through Care Everywhere.ADULT, PNEUMONI A (JAPANESE)COPD FLARE (JAPANESE)documented in this encounter Medications at Time of [...] + + documented as of this encounter ED Notes Gigi Dhaliwal MD - 10/29/2015 4:57 PM PDTFormatting of this note might be different f rom the original. [facility] [place] [facility] Encounter Note [address] [place] [id number] PCP:Davis Ivan MD [phone] CHIEF COMPLAINT Chief Complaint Patient presents with Arm Pain Fever (9 Weeks To 74 Years) HPI Thea Carmona is a 70 y.o. female who presents to the emergency department with rig ht-sided body pain, difficulty breathing/shortness of breath. This patient was recently stan gnosed with pneumonia and put on Augmentin. She has been taking the Augmentin since Thursday, it is now Thursday. She has been feeling short of breath. She developed pain in the right s collette of her body. She is on a new cancer medication for the past 10 days. She has been havi ng some diarrhea. No trouble urinating. No vomiting. She is providing most of her own his tory, she is accompanied by her who is assisting with the history. PAST MEDICAL HISTORY Past Medical History Diagnosis Date COPD (chronic obstructive pulmonary disease) ([facility]) on albuterol Spondylolisthesis of cervical region Spinal stenosis has tried cortisone injections Osteoporosis Depression Pneumonia 2008 hospitalized 5 days Rheumatoid arthritis(714.0) ([facility]) on prednisone and methotrexate, Dr. Lewis [place] Hyperlipidemia on simvastatin Hypertension on clonidine and lisinopril Hypothyroidism GERD (gastroesophageal reflux disease) Stroke ([facility]) 2006 Stroke ([facility]) 2007 Squamous cell carcinoma of lung ([facility]) 07/2013 right lower lobe Sputum culture positive for Scopulariopsis species Recurrent squamous cell carcinoma of lung ([facility]) 07/11/[address] and RUL nodule MARCE (obstructive sleep apnea) AHI 11.6 no CPAP Full dentures upper & lower Upper GI bleed 06/[address] SURGICAL HISTORY Past Surgical History Procedure Laterality Date Hysterectomy Cholecystectomy Cervical spine surgery 2013 Bladder suspension Shoulder surgery Thumb surgery Shoulder surgery right shoulder Tongue surgery benign per pt Lung biopsy 07/21/13 right lower lobe Lobectomy 09/16/13 right lower lobe Back surgery 03/2014 Bronchoscopy 07/11/2014 EBUS with right hilar LN biopsy, [facility] Dr. Sierra Tunneled venous port placement N/A 07/28/2014 Procedure: Port Placement; Surgeon: Chalino Chiu MD; Location: [facility] MAIN OR Colonoscopy 06/2014 Endoscopy Hand arthroplasty Left 03/20/2015 Procedure: Left 1st C.M.C. Arthroplasty; Surgeon: Giuliano Padilla MD; Location: [facility] OR CURRENT MEDICATIONS Discharge Medication List as of 10/29/2015 19:39 CONTINUE these medications which have NOT CHANGED Details albuterol 90 mcg/puff inhaler Inhale 2 puffs into the lungs every 6 hours as needed for Whe ezing or Shortness of Breath.Disp-1 Inhaler, R-PRN, Normal albuterol-ipratropium (DUONEB) 2.5-0.5 mg/3 mL SOLN Take 3 mLs by nebulization 4 times massimo y. CASIE: 12 months Dx: J44.9Disp-360 mL, R-11, Normal aspirin 81 MG tablet Take 81 mg by mouth Daily.Historical Med Blood Pressure Monitoring (BLOOD PRESSURE CUFF) [facility] [place] provide patient with appropriat e sized blood pressure cuff for 12.5" arm. Dx: Hypertension I10 CASIE: 99 monthsDisp-1 each, R -0, Print cholecalciferol (VITAMIN D-3) 1,000 units capsule Take 1,000 Units by mouth Daily.Historica l Med cloNIDine (CATAPRES) 0.1 mg tablet Take by mouth Daily.Historical Med clopidogrel (PLAVIX) 75 mg tablet Take 75 mg by mouth Daily.Historical MedMedication has a BLACK BOX Warning or Severe Contraindications. Consult references such as [employer] for fu rther information. diazepam (VALIUM) 2 mg tablet nightly as needed.R-0, Historical Med ferrous sulfate (IRON) 28 MG TABS Take 28 mg by mouth Daily.Historical Med Fexofenadine HCl (ETHAN ALLERGY PO) Take by mouth Daily.Historical Med fluticasone-vilanterol (BREO ELLIPTA) 200-25 mcg/puff inhaler Inhale 1 puff into the lungs Daily.Disp-1 each, R-11, Normal folic acid 1 mg tablet Take 1 mg by mouth Daily.Historical Med guaiFENesin (MUCINEX) 600 mg 12 hr tablet Take 1,200 mg by mouth as needed.Historical Med HYDROcodone-acetaminophen (HYCET) 7.5-325 mg/15 mL liquid Take 15 mLs by mouth 4 times massimo y as needed for Pain.Historical Med HYDROmorphone (DILAUDID) 4 MG tablet Take 8 mg by mouth every 6 hours as needed.Historical Med levothyroxine (SYNTHROID) 100 mcg tablet Take 75 mcg by mouth every morning (before breakfa st).Historical Med LORazepam (ATIVAN) 1 mg tablet Take 1 mg by mouth every 6 hours as needed for Anxiety.Histo rical Med Magnesium 100 MG CAPS Take by mouth Daily.Historical Med omeprazole (PRILOSEC) 40 MG capsule Take 1 capsule by mouth every morning (before breakfast ).Disp-30 capsule, R-11, Normal ranitidine (ZANTAC) 150 mg tablet Take 1 tablet by mouth 2 times daily.Disp-60 tablet, R-3, Normal Respiratory Therapy Supplies (NEBULIZER COMPRESSOR) KIT Use as directed with [facility]. 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 Social History Main Topics [...] Concern None Social History Narrative Lives: in [place] With: alone Grew up: in [place] Has previously lived in: [place] Exposure to toxic chemicals: no Exposure to asbestos: no Exposure to tuberculosis: no Has had a PPD or Quantiferon before: no Has pets at home: cat and a dog Has ever owned birds: yes, 5 years ago Other animal exposures: no Hobbies: used to jaja, crossword puzzles, walking her dog REVIEW OF SYSTEMS All systems reviewed and found negative except what is in the HPI PHYSICAL EXAM VITAL SIGNS: BP 133/56 mmHg | Pulse 87 | Resp 18 | Ht 1.575 m (5' 2") | Wt 77.111 kg (170 lb) | BMI 31.09 kg/m2 | SpO2 98% Constitutional: Well developed, Well nourished, No acute distress, Non-toxic appearance. HENT: Normocephalic, Atraumatic, Bilateral external ears normal, Tympanic membranes normal , Mucous membranes are moist, Nasal mucosa is normal. Eyes: Conjunctiva normal, No discharge. Palpebral conjunctiva are pink. Neck: Normal range of motion, No tenderness, Supple, No stridor. Respiratory: Bilateral expiratory wheezing, mild tachypnea, poor air exchange Chest: Non tender, no signs of trauma Cardiovascular: Normal heart rate, Normal rhythm, No murmurs appreciated. GI: Soft, Non tenderness, No peritoneal signs, No masses Extremities: Warm and well perfused, no edema, no joint swelling or deformity. Good ROM. No red hot joints. Back: No CVAT, No tenderness of the thoracic or lumbar spine. Skin: Warm, Dry, No erythema, No induration, No rash. Lots of old bruising. Neurologic: Alert & oriented x 3, No focal motor or sensory deficits. Speech is clear. G ait is normal. RADIOLOGY Chest x-ray shows chronic pathology due to her cancer. There is a left lung base atelectas is versus small infiltrate that is new. ED COURSE & MEDICAL DECISION MAKING Pertinent Labs & Imaging studies reviewed. (See chart for details) The patient was seen and examined shortly after arriving in the emergency department. Hist ory and physical were obtained, vital signs were noted. Her wheezing improved after DuoNeb. She still has wheezing but her air exchange is better. Room air sats are 92%. Chest x-ra y suggests pneumonia versus atelectasis in the left lung base. I do think she needs antibio tics. The patient halved the Augmentin dosing prescribed by her oncologist. She attributes the increasing pain and diarrhea to the Augmentin. I'm concerned that a reduced dose of th e Augmentin will not be effective treating the pneumonia. The etiology of her increased sushma n is unclear but does not reflect any acute pathology that requires emergent intervention. I will have her follow-up with her oncologist regarding the increasing pain. Possibly this is related to her chemotherapy. I will put her on Levaquin and stop Augmentin completely. Follow up with Dr. Hendrix in 1-2 days. The urinalysis is contaminated. We will see wh at the culture shows. I am treating her with Levaquin for her lungs anyway. FINAL IMPRESSION 1. Pneumonia of left lower lobe due to infectious organism 2. COPD exacerbation (HCC) PLAN Follow-up Information Schedule an appointment as soon as possible for a visit with Davis Ivan MD. Specialty: Family Medicine Contact information: [address] [place] [address] [place] [address] Follow up with SARITA HENDRIX MD In 1 day. Specialty: Medical Oncology Contact information: [address] [facility] [address] Discharge Medication List as of 10/29/2015 19:39 START taking these medications Details levofloxacin (LEVAQUIN) 500 mg tablet Take 1 tablet by mouth Daily for 7 days.Disp-7 tablet , R-0, Print predniSONE (DELTASONE) 10 mg tablet Take 6 tablets by mouth Daily for 5 days.Disp-30 tablet , R-0, Print Gigi Dhaliwal MD 10/29/15 2349 docume nted in this encounter Miscellaneous Notes ED Triage Notes - ZEV Quezada - 10/29/2015 4:40 PM PDTPt complains that she had pneumonia a nd dr. hendrix ordered augmentin that she has been on since Thursday. She now complains th at she has been having her whole right side of her body is hurting. She started a new cancer medication GILOTRIF about 10 days and she has been having diarrhea the past 4 or 5 days. Pt is not supposed to have milk products with her chemo meds and had a chocolate milkshake.Ayaka ctronically signed by ZEV Quezada at 10/29/2015 4:42 PM PDTdocumented in this encounter Plan of Treatment +--------+---------+ + + + | Date | Type | Specialty | Care Team | Description | +--------+---------+ + + + | 03/06/ | Office | Rheumatology | Santosh Sumner, | | | 2019 | Visit | | [address] | | | | | | [facility] | | | | | | [place] [address] | | | | | | [phone] | | | | | | | [...] [address] | [place] | [phone] | | [facility] | | [address] | | | - LABORATORY | | | | + + + + + Urinalysis with Microscopic with Culture if Indicated (10/29/2015 7:29 PM PDT) + + + + + + | Component | Value | Ref Range | Performed | Pathologist | | | | | At | Signature | + + + + + + | Color, | Merry (A) | Light Yellow, | [facility] | | | Urine | | Yellow, Straw | [facility] | | | | | | MEDICAL | | | | | | CENTER - | | | | | | LABORATORY | | + + + + + + | Clarity, | Hazy (A) | Clear | [facility] | | | Urine | [...] - 1.030 | [facility] | | | Howard, | | | [facility] | | [...] | | | Urine | | | [facility] | | [...] | | | Urine | | | [facility] | | [...] + + + | White Blood | 25-50 (A) | 0 - 2 /HPF | [facility] | | | Cells, | | | [facility] | | | Urine | | | MEDICAL | | | | | | CENTER - | | | | | | LABORATORY | | + + + + + + | Red Blood | 50-100 (A) | 0 - 2 /HPF | [facility] | | | Cells, | | | [facility] | | | Urine | | | MEDICAL | | | | | | CENTER - | | | | | | LABORATORY | | + + + + + + | Squamous | 50-100 (A) | 0 - 2 /LPF | [facility] | | | Epithelial | | | [facility] | | | Cells, | | | MEDICAL | | | Urine | | | CENTER - | | | | | | LABORATORY | | + + + + + + | Bacteria, | 1+ (A) | Negative /HPF | [facility] | | | Urine | | | [facility] | | | | | | MEDICAL | | | | | | CENTER - | | | | | | LABORATORY | | + + + + + + | Mucus, | Present (A) | Negative /LPF | [facility] | | | Urine | | | [facility] | | | | | | MEDICAL | | | | | | CENTER - | | | | | | LABORATORY | | + + + + + + | Urine | Urine Culture Set Up | | [facility] | | | Comment | | | [facility] | | [...] + | [facility] | [address] | [place] | [phone] | | [facility] | | [address] | | | - [...] [address] | [place] | [phone] | | [facility] | | [address] | | | - LABORATORY | | | | + + + + + CBC with Differential (10/29/2015 7:22 PM PDT) + + + + + + | Component | Value | Ref Range | Performed | Pathologist | | | | | At | Signature | + + + + + + | White Blood | 13.1 (H) | 4.0 - 11.0 K/uL | [facility] | | | Cells | | | [facility] | | | | | | MEDICAL | | | | | | CENTER - | | | | | | LABORATORY | | + + + + + + | Red Blood | 4.19 | 3.70 - 5.20 | [...] [address] | [place] | [phone] | | [facility] | | [address] | | | - LABORATORY | | | | + + + + + Culture, Blood (10/29/2015 6:30 PM PDT) + + + + + + | Component | Value | Ref Range | Performed | Pathologist | | | | | At | Signature | + + + + + + | Culture | No Growth | | [facility] | | | | | | ST. [...] [address] | [place] | [phone] | | [facility] | | [address] | | | - LABORATORY | | [...] | mL/min/1.73m2 | [facility] | | | Green[place]ic | RATE,ESTIMATED | | MEDICAL | | | | mL/min/1.72g8Cdjz than | | CENTER - | | [...] [address] | [place] | [phone] | | [facility] | | [address] | | | - LABORATORY | | [...] left lower lobe due to infectious organism - Primary | + + | COPD exacerbation (HCC) Obstructive chronic bronchitis with exacerbation | + + documented in this encounter Administered Medications + +--------+ +-------+------+------+ | Medication Order | MAR | Action | Dose | Rate | Site | | | Action | Date | | | | + +--------+ +-------+------+------+ | albuterol-ipratropium (DUONEB) | Given | 10/28/20 | 3 mLs | | | | [...] | injection 500 Units 500 Units ( 8:15 | Units | | | | [...] | 500 mg 500 mg, Oral, ONCE, Thu | | 16 [...]
--- OUTSIDE RECORDS SUMMARY | ~2019-12-28 | XMS | Encounter Summary ---
Demographics + + + | Address | [address] | | | [place] [address] | + + + | Home Phone [...] [place] | | | | | [address] | | + + + + + [...] | ONCOLOGY [address] | [place] | | | | | [place], | [address] | | | | | [place] [address] | | | | | | [phone] | | | +--------+ + + + [...] | 2019 | Visit | | [address] | | | | | | [facility] | | | | | | [place] [address] | | | | | | [phone] | | | | | | | | +--------+---------+ + + + documented as of this encounter Visit Diagnoses + + | Diagnosis | + + | Cough - Primary | + + documented in this encounter"
--- OUTSIDE RECORDS SUMMARY | ~2019-12-28 | XMS | Encounter Summary ---
Demographics + + + | Address | [address] | | | [place] [address] | + + + | Home Phone [...] [place] | | | | | [address] | | + + + + + Care Team Providers + +------+ + | Care Laundry Sorter Name | Role | Phone | + +------+ + | Davis Ivan MD | PCP | | + +------+ + Reason for Visit +--------+--------+ + | Reason | Onset | Comments | | | Date | | +--------+--------+ + | Other | 07/05/ | CT guided needle biopsy | | | 2013 | | +--------+--------+ + Encounter Details +--------+ + + + + | Date | Type | Department | Care Team | Description | +--------+ + + + + | 07/05/ | Telephone | [facility] | Claudia, | Other (CT guided | | 2013 | | PULMONARY [address] | yAana Looney MD | needle biopsy) | | | | [place], | | | | | | [place] [address] | | | | | | [phone] | | | +--------+ + + + [...] Telephone Encounter - Sara Evans RN - 07/05/2013 2:11 PM PSTTalked with [facility] radio logy wheel buffer. The interventional radiologists do not do CT guided needle biopsies of the l brianne. Per Dr Taylor will refer to [facility]. documented in this encounter Plan of Treatment +--------+---------+ + + + | Date | Type | Specialty | Care Team | Description | +--------+---------+ + + + | 03/06/ | Office | Rheumatology | Santosh Sumner, | | | 2019 | Visit | | [address] | | | | | | [facility] | | | | | | [place] [address] | | | | | | [phone] | | | | | | | | +--------+---------+ + + + documented as of this encounter Visit Diagnoses Not on filedocumented in this encounter"
--- OUTSIDE RECORDS SUMMARY | ~2019-12-28 | XMS | Encounter Summary ---
Demographics + + + | Address | [address] | | | [place] [address] | + + + | Home Phone [...] [place] | | | | | [address] | | + + + + + Care Team Providers + +------+ + | Care Director Television Name | Role | Phone | + [...] | | | | | | [place] [address] | | | | | | [phone] | | | +--------+--------+ + + + [...] | 2019 | Visit | | [address] | | | | | | [facility] | | | | | | [place] [address] | | | | | | [phone] | | | | | | | | +--------+---------+ + + + documented as of this encounter Visit Diagnoses Not on filedocumented in this encounter"
--- OUTSIDE RECORDS SUMMARY | ~2019-12-28 | XMS | Encounter Summary ---
Demographics + + + | Address | [address] | | | [place] [address] | + + + | Home Phone [...] [place] | | | | | [address] | | + + + + + Care Team Providers + +------+ + | Care Brush Hand Name | Role | Phone | [...] Malignant | MD Adelita | [address] | | | | | neoplasm of | Need | [place], | | | | | main | updated | [place] | | | | | bronchus, | address | [address] | | | | | right (HCC) | | Phone: | | | | | Procedures | | [phone] | | | | | MRI Brain w | | Fax: | | | | | wo Contrast | | [phone] | +--------+--------+ + + + + Encounter Details +--------+ + + + + | Date | Type | Department | Care Team | Description | +--------+ + + + + | 08/30/ | Orders Only | [facility] | Adelita Lu MD | Malignant neoplasm | | 2013 | | [facility] | Need updated | of main bronchus, | | | | [facility] [address] | address | right (HCC) (Primary | | | | [address] [place] | | Dx) | | | | [place] [address] | | | | | | [phone] | | | +--------+ + + + [...] | 2019 | Visit | | [address] | | | | | | [facility] | | | | | | [place] [address] | | | | | | [phone] | | | | | | | [...] + | MISCELLANEOUS LAB | | | [phone] | + +---------+ + + | MISCELANIOUS LAB | | | [phone] | + +---------+ + + documented in this encounter Visit Diagnoses + + | Diagnosis | + + | Malignant neoplasm of main bronchus, right (HCC) - Primary | + + documented in this encounter"
--- OUTSIDE RECORDS SUMMARY | ~2019-12-28 | XMS | Encounter Summary ---
Demographics + + + | Address | [address] | | | [place] [address] | + + + | Home Phone [...] [address] | | | | | [address] | | + + + + + Care Team Providers + +------+ + | Care Demand Inspector Name | Role | Phone | [...] Provider Unknown | | | | | [place], [place] | [phone] | | | | | [address] | (Fax) | | | | | [...] | 2019 | Visit | | [address] | | | | | | [facility] | | | | | | [place] [address] | | | | | | [phone] | | | | | | | [...]
--- OUTSIDE RECORDS SUMMARY | ~2019-12-28 | XMS | Encounter Summary ---
Demographics + + + | Address | [address] | | | [place] [address] | + + + | Home Phone [...] [place] | | | | | [address] | | + + + + + Care Team Providers + +------+ + | Care Weight Count Operator Name | Role | Phone | [...] + + | 08/29/ | Hospital | [facility] | Adelita Lu MD | Recurrent squamous | | 2015 | Encounter | [facility] | Need updated | cell carcinoma of | | | | INFUSION [address] | address | lung, unspecified | | | | [place], | | laterality (HCC) | | | | [place] [address] | | | | | | [phone] | | | +--------+ + + + [...] + documented as of this encounter Progress Miladis Guzman RN - 08/29/2014 12:57 PM PDTPt arrived via WC by forest ranger technician accessed and deaccessed per protocol discharged in stable condition with family documented in this encounter Plan of Treatment +--------+---------+ + + + | Date | Type | Specialty | Care Team | Description | +--------+---------+ + + + | 03/06/ | Office | Rheumatology | Santosh Sumner, | | | 2019 | Visit | | [address] | | | | | | [facility] | | | | | | [place] [address] | | | | | | [phone] | | | | | | | [...]
--- OUTSIDE RECORDS SUMMARY | ~2019-12-28 | XMS | Encounter Summary ---
Demographics + + + | Address | [address] | | | [place] [address] | + + + | Home Phone [...] [place] | | | | | [address] | | + + + + + Care Team Providers + +------+ + | Care Bindery Machine Tender Name | Role | Phone [...] | pulmonary disease, | | | | [place], | | unspecified COPD | | | | [place] [address] | | type (HCC) | | | | [phone] | | | +--------+ + + + [...] | 2019 | Visit | | [address] | | | | | | [facility] | | | | | | [place] [address] | | | | | | [phone] | | | | | | | | +--------+---------+ + + + documented as of this encounter Visit Diagnoses + + | Diagnosis | + + | Chronic obstructive pulmonary disease, unspecified COPD type (HCC) | + + documented in this encounter"
--- OUTSIDE RECORDS SUMMARY | ~2019-12-28 | XMS | Encounter Summary ---
Demographics + + + | Address | [address] | | | [place] [address] | + + + | Home Phone [...] [address] | | | | | [address] | | + + + + + Care Team Providers + +------+ + | Care Graphics Artist Name | Role | Phone | + +------+ + | Caitlin Chino MD | PCP | | + +------+ + Reason for Visit +--------+--------+ + | Reason | Onset | Comments | | | Date | | +--------+--------+ + | Other | 11/28/ | SCREEN FOR S[facility]IA | | | 2019 | | +--------+--------+ + Encounter Details +--------+ + + + + | Date | Type | Department | Care Team | Description | +--------+ + + + + | 11/28/ | Telephone | [facility] | Santosh Sumner, | Other (SCREEN FOR | | 2019 | | RHEUMATOLOGY [address] | PA-C [address] | [place] ) | | | | [place] | [facility] | | | | | [place], [place] | [place] [address] | | | | | [address] | [phone] | | | | | [phone] | | | +--------+ + + + [...] this encounter Miscellaneous Notes Telephone Encounter - Kenia Garvin - 11/29/2019 12:02 PM PDT1. For your safety and t o help prevent further spread of the COVID-19, your provider would like to offer you a telep emily/virtual visit. Would you like to change your office visit to a telephone/virtual visit? NO 2. Have you been exposed to anyone diagnosed with or is currently being tested for COVID-19 ? a. If yes, transfer to triage but ask #3 also b. If no, see below NO 3. Do you currently have a cough, SOB, a fever, sore throat or loss of taste or smell? a. If yes, transfer to triage b. If no, see below NO Remind patients of no visitor policy if they are coming to clinic Remind patients to wear a mask when coming into the clinic Set up mychart and offer e-checkin option When you change the apt to a telephonic/virtual visit please: -Confirm insurance -if telephone, Confirm what phone number they want called, check to making sure they get go od canine service instructor trainer in their area -Gather any questions ahead of time -They need to be in a quiet area, away from distractions -Tell them what time they should be expecting the call (just their scheduled apt time) -if virtual, send BiolineRxhart message -computer needs to have webcam, microphone and speakers -smart phone should have webcam, microphone and speakers documented in this en counter Plan of Treatment +--------+---------+ + + + | Date | Type | Specialty | Care Team | Description | +--------+---------+ + + + | 03/06/ | Office | Rheumatology | Santosh Sumner, | | | 2019 | Visit | | [address] | | | | | | [facility] | | | | | | [place] [address] | | | | | | [phone] | | | | | | | | +--------+---------+ + + + documented as of this encounter Visit Diagnoses Not on filedocumented in this encounter"
--- OUTSIDE RECORDS SUMMARY | ~2019-12-28 | XMS | Encounter Summary ---
Demographics + + + | Address | [address] | | | [place] [address] | + + + | Home Phone [...] [place] | | | | | [address] | | + + + + + Care Team Providers + +------+ + | Care Instruction Dean Name | Role | Phone | + [...] | | | [address] | [place] [address] | | | | | [place] [address] | | | | | | [phone] | | | +--------+ + + + [...] | 2019 | Visit | | [facility] | | | | | | [address] | | | | | | [place] [address] | | | | | | [phone] | | | | | | | [...]
--- OUTSIDE RECORDS SUMMARY | ~2019-12-28 | XMS | Encounter Summary ---
Demographics + + + | Address | [address] | | | [place] [address] | + + + | Home Phone [...] [address] | | | | | [address] | | + + + + + Care Team Providers + +------+ + | Care Franchise Field Consultant Name | Role | Phone | + +------+ + | Davis Ivan MD | PCP | | + +------+ + Reason for Visit +--------+--------+ + | Reason | Onset | Comments | | | Date | | +--------+--------+ + | Other | 08/03/ | | | | 2014 | | +--------+--------+ + Encounter Details +--------+--------+ + + + | Date | Type | Department | Care Team | Description | +--------+--------+ + + + | 08/03/ | Refill | [facility] | Adelita Lu MD | Other | | 2014 | | [facility] | Need updated | | | | | [facility] [address] | address | | | | | [address] | | | | | | [place] [address] | | | | | | [phone] | | | +--------+--------+ + + + [...] this encounter Miscellaneous Notes Telephone Encounter - Lyndsay Webster RN - 08/03/2014 5:04 PM PSTSpoke with Thea who s tated that she tried to get into her doctors office today and they were closed. She states t hat she has a sinus infection and wants to know whether she should begin chemo on Thursday. I spoke with Dr. Lu who ordered Levaquin 500 mg po 1 daily for 7 days. Patient will come he re for her appointment on Thursday and Dr. Lu will evaluate whether she will receive chemo at that time. Patient is aware of the prescription and will pick it up and take according to directions. elephon e Encounter - Jenny Rois - 08/03/2014 3:58 PM PSTShe is suppose to start treat ment on Thursday, but she has a cough and sinus infection. What should she do? documented in this encounter Plan of Treatment +--------+---------+ + + + | Date | Type | Specialty | Care Team | Description | +--------+---------+ + + + | 03/06/ | Office | Rheumatology | Taisha Santosh, | | | 2019 | Visit | | [address] | | | | | | [facility] | | | | | | [place] [address] | | | | | | [phone] | | | | | | | | +--------+---------+ + + + documented as of this encounter Visit Diagnoses + + | Diagnosis | + + | Infection - Primary Unspecified infectious and parasitic diseases | + + documented in this encounter"
--- OUTSIDE RECORDS SUMMARY | ~2019-12-28 | XMS | Encounter Summary ---
Demographics + + + | Address | [address] | | | [place] [address] | + + + | Home Phone [...] [place] | | | | | [address] | | + + + + + Care Team Providers + +------+ + | Care Security Coordinator Name | Role | Phone | [...] | | Cough | [place], | [address] [place] | | | | | Procedures | Ayana B, | [place], | | | | | CT Chest w | MD [address] | [place] [address] | | | | | Contrast | [address] | Phone: | | | | | | [place], | [phone] | | | | | | [place] [address] | Fax: | | | | | | | [phone] | +--------+--------+ + + + + Reason for Visit +--------+ + | Reason | Comments | +--------+ + | COPD | | +--------+ + Encounter Details +--------+---------+ + + + | Date | Type | Department | Care Team | Description | +--------+---------+ + + + | 08/24/ | Office | [facility] | [place], | Cough (Primary Dx); | | 2014 | Visit | PULMONARY [address] | Ayana Looney MD | COPD (chronic | | | | [place], | | obstructive | | | | [place] [address] | | pulmonary disease); | | | | [phone] | | Recurrent squamous | | | [...] took a course of levofloxacin at the [facility] from Dr. Lu. She also took a course of antibiotics (Tamiflu) at the [facility] of [facility] from Dr. Ivan. We started [...] then had worsened around the time sh suzan started radiation. Past Medical History Past Medical History Diagnosis Date COPD (chronic obstructive pulmonary disease) ([facility]) on albuterol Spondylolisthesis of cervical region Spinal stenosis has tried cortisone injections Osteoporosis Depression Pneumonia 2008 hospitalized 5 days Rheumatoid arthritis(714.0) ([facility]) on prednisone and methotrexate, Dr. 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 Respiratory Therapy Supplies [facility] ResMed S9 auto CPAP 5-9 cm H2O. [...] to ensure accuracy; however, inadvertent computerized manager strategic alliances errors may be pre sent. documented in t his encounter Plan of Treatment +--------+---------+ + + + | Date | Type | Specialty | Care Team | Description | +--------+---------+ + + + | 03/06/ | Office | Rheumatology | Santosh Sumner, | | | 2019 | Visit | | [address] | | | | | | [facility] | | | | | | [place] [address] | | | | | | [phone] | | | | | | | [...] known recurrent lung cancer COMPARISON: Chest | [facility] | | radiographs August 24 and July [...] | + + + + + | [address] | [address] | [place] | [phone] | | [facility] | | [address] | | | - IMAGING | | [...]
--- OUTSIDE RECORDS SUMMARY | ~2019-12-28 | XMS | Encounter Summary ---
Demographics + + + | Address | [address] | | | [place] [address] | + + + | Home Phone [...] [place] | | | | | [address] | | + + + + + Care Team Providers + +------+ + | Care Mold Closer Helper Name | Role | Phone | + +------+ + | Davis Ivan MD | PCP | | + +------+ + Encounter Details +--------+ + + + + | Date | Type | Department | Care Team | Description | +--------+ + + + + | 08/23/ | Hospital | [facility] | Conversion | Pain | | 2013 | Encounter | CONVERSION [address] | Transaction, | | | | | [address] | Provider Unknown | | | | | [place] | [phone] | | | | | [address] | | | | | | [phone] | | | +--------+ + + + [...] | 2019 | Visit | | [address] | | | | | | [facility] | | | | | | [place] [address] | | | | | | [phone] | | | | | | | [...]
--- OUTSIDE RECORDS SUMMARY | ~2019-12-28 | XMS | Encounter Summary ---
Demographics + + + | Address | [address] | | | [place] [address] | + + + | Home Phone [...] [address] | | | | | [address] | | + + + + + Care Team Providers + +------+ + | Care Carburetor Mechanic Name | Role | Phone | + +------+ + | Davis Ivan MD | PCP | | + +------+ + Reason for Visit +---------+--------+ + | Reason | Onset | Comments | | | Date | | +---------+--------+ + | Results | 10/19/ | | | | 2014 | | +---------+--------+ [...] | | | | | | [place] [address] | | | | | | [phone] | | | +--------+ + + + [...] Telephone Encounter - Diann Leal RN - 10/19/2014 1:30 PM Isiah returned our call and was told that Dr Taylor wanted her to know that the esophagram showed some dysfunct ion and also refluxing and that this is probably the reason for her cough. The following re flux instructions were given to her. We offered to mail it to her so she could have it for future reference but she declined the offer, stating that she will remember the instructions . Instructions for Avoidance of Reflux 1. Elevate [...] is beneficial. 10. Take your reflux medication, Omeprazole 40 mg daily before breakfast and Ranitidine 150 mg daily (taken later in the day). elephone Encounter - Diann Leal RN - 10/19/2014 1:30 PM PDT----- Message from Kathleen Esquivel sent at 10/19/2014 10:38 PDT ----- Please let Thea Carmona know that their esophagram did show some dysfunction and a lso refluxing. This is likely a big part of the cough going on now. Please make sure they cintron ve my anti reflux instructions, and if not, provide them from my smart phrase. Thanks.Electr onically signed by Diann Leal RN at 10/19/2014 1:30 PM PDTdocumented in this encount er Plan of Treatment +--------+---------+ + + + | Date | Type | Specialty | Care Team | Description | +--------+---------+ + + + | 03/06/ | Office | Rheumatology | Santosh Sumner, | | | 2019 | Visit | | [address] | | | | | | [facility] | | | | | | [place] [address] | | | | | | [phone] | | | | | | | | +--------+---------+ + + + documented as of this encounter Visit Diagnoses Not on filedocumented in this encounter"
--- OUTSIDE RECORDS SUMMARY | ~2019-12-28 | XMS | Encounter Summary ---
Demographics + + + | Address | [address] | | | [place] [address] | + + + | Home Phone [...] [place] | | | | | [address] | | + + + + + Care Team Providers + +------+ + | Care Activity Aide Name | Role | Phone | [...] + + | 10/02/ | Hospital | [facility] | Dimitri Kim, | Chronic obstructive | | 2015 - | Encounter | [facility] | MD Nichole ZAPATA | pulmonary disease, | | | | [address] [place] | [place] | unspecified COPD | | 10/05/ | | [place] [address] | [phone] | type (HCC) (Primary | | 2016 | | [phone] | | Dx); Recurrent | | | | | Bony Hernandez P, | squamous cell | | | | | MD [address] | carcinoma of lung, | | | | | [place], [place] | right (HCC); CAP | | | | | [phone] | (community acquired | | | | [...] f rom the original. HOSPITALIST DISCHARGE SUMMARY [facility] in [place], [place] Pt. Name/Age/: Thea Carmona 70 y.o. [...] mg by mouth Daily. Blood Pressure Cuff [facility] Please provide patient with appropriate sized blood [...] Department Center 11/07/2015 13:00 Ayana Taylor MD [facility] Follow-up Information Follow up with Davis Ivan MD In 2 weeks. Specialty: Family Medicine Contact information: [address] [place] [address] Follow up issues and pending labs needing [...] behavior appropriate Selected Labs/Studies: Recent Labs Lab 10/04/1544610/03/15 0535 [...] 57 No results for input(s): PHART, PO2ART, ETU3SKZ, J1JSYMDF, BEART in the last 168 hours. No results for input(s): BNP, DDIMER in the last 168 hours. Invalid input(s): CKTOTAL, TROPONINI, CKMBINDEX Recent Labs Lab 10/03/15 0535 INR 1.03 No results found for: POCGLU Patient was seen and examined today and less than 30 minutes spent on discharge from [facility] ent status. Electronically signed by: Bony Hernandez MD 10/06/2015 11:37 Portions of this chart may have been created with [employer] voice recognition software. 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); MARCE (obstructive sleep apnea); Full de [...] Intake/Output Summary (Last 24 hours) at 10/06/15 08 Last data filed at 10/06/15 06 Gross per 24 hour Intake 1910 ml [...] Value Units Date/Time Culture, Respiratory, Lower, Smear [[id number]] Collected: 10/03/15 1756 Order Status: Completed Lab Status: Final result Updated: 10/05/15 1458 Specimen Information: Respiratory / Sputum, expectorated Culture 2+ Usual Respiratory Aline 1+ Renee albicans Gram Stain Result 3+ White Blood Cells 2+ Epithelial cells 1+ Gram positive cocci Culture, Blood [[id number]] Collected: 10/03/15 1459 Order Status: Completed Lab Status: Preliminary result Updated: 10/04/15310 Specimen Information: Blood / Peripheral Blood Culture Result: No growth: Monitored continually by instrument for 5 days Culture, Blood [[id number]] Collected: 10/03/15 1448 Order Status: Completed Lab Status: Preliminary result Updated: 10/04/15310 Specimen Information: Blood / Peripheral Blood Culture Result: No growth: Monitored continually by instrument for 5 days Culture, Blood [[id number]] Order Status: Canceled Lab Status: No result Specimen Information: Blood / Peripheral Blood Culture, Urine [[id number]] Collected: 10/03/15 0543 Order Status: Completed Lab Status: Final result Updated: 10/05/15 1053 Specimen Information: Urine / Urine, clean catch Culture Result: 30,000 - 40,000 CFU/ml Mixed aline (multiple morphologies present) Comment: Suggests contamination with urogenital or skin aline. Culture, MRSA [[id number]] Collected: 10/03/15 9879 Order Status: Completed Lab Status: Final result [...] pain, productive cough, and fever. Transfer from [place] . She had SCC right lung with [...] the original. HOSPITALIST PROGRESS NOTE on 10/05/2015 [facility] Pt. Name/Age/: Thea Carmona 70 y.o. 1945 Med. Record Number: [id number] Primary Care Physician: Davis Ivan MD Date [...] last few weeks. Came to ER in [place] and was sent here for pneumonia. Sees [...] suggests infiltrate in right base morning of 10/03. Patient is hoping to be discharged Thursday, [...] 39.0 PLT 194 198 Recent Labs Lab 10/04/157 10/03/15 0535 NA 139 137 K 3.8 3.6 CL 106 103 CO2 26 26 BUN 15 9 CREA 0.92 1.00 CALCIUM 7.9* 8.1* ALBUMIN -- 2.7* BILITOT -- 0.7 ALT -- 23 AST -- 29 ALKPHOS -- 57 No results for input(s): PHART, PO2ART, FHR4JRM, V0NEJEVM, BEART in the last 168 hours. No results for input(s): TROPONINT, BNP in the last 168 hours. Invalid input(s): CKTOTAL, TROPONINI, CKMBINDEX Recent Labs Lab 10/03/15 0535 INR 1.03 No results found for: POCGLU Micro results last 72hrs: Microbiology Results (72 hrs) Procedure Component Value Units Date/Time Culture, Respiratory, Lower, Smear [[id number]] Collected: 10/03/15 1756 Order Status: Completed Lab Status: Preliminary result Updated: 10/04/15 0723 Specimen Information: Respiratory / Sputum, expectorated Culture Culture in progress... 1+ Usual Respiratory Aline Gram Stain Result 3+ White Blood Cells 2+ Epithelial cells 1+ Gram positive cocci Culture, Blood [[id number]] Collected: 10/03/15 1459 Order Status: Completed Lab Status: Preliminary result Updated: 10/04/15310 Specimen Information: Blood / Peripheral Blood Culture Result: No growth: Monitored continually by instrument for 5 days Culture, Blood [[id number]] Collected: 10/03/15 1448 Order Status: Completed Lab Status: Preliminary result Updated: 10/04/15310 Specimen Information: Blood / Peripheral Blood Culture Result: No growth: Monitored continually by instrument for 5 days Culture, Urine [[id number]] Collected: 10/03/15 0543 Order Status: Completed Lab Status: Final result Updated: 10/05/15 1053 Specimen Information: Urine / Urine, clean catch Culture Result: 30,000 - 40,000 CFU/ml Mixed aline (multiple morphologies present) Comment: Suggests contamination with urogenital or skin aline. Culture, MRSA [[id number]] Collected: 10/03/15 0449 Order Status: Completed Lab Status: Final result Updated: 10/04/15 9415 Specimen Information: Respiratory / Nares Culture Negative [...] hydroxide, ondansetron OR ondansetron DVT Prophylaxis Lovenox [facility] Documentation I expect this patient will be hospitalized for greater than 2-midnights and expect the post -hospital plan to be discharge to home or to an adult foster home. Electronically signed by: Bony Hernandez MD, 10/05/2015 12:17 [facility] Portions of this chart may have been created [employer] voice recognition software. Occas ional wrong-word or sound-alike substitutions may have occurred due to the inherent li mitations of voice recognition software. Please read the chart carefully and recognize, usin g context, where these substitutions have occurred. Charity Ferrell PharmD - 10/05/2015 10:05 AM PDTFormatting of this note might be different from the origin al. VANCOMYCIN PER PHARMACY PROTOCOL: Subjective/Objective: Thea Carmona is a 70 y.o. female admitted on 10/03/2015 for Dyspnea, cough, chest pa in, and fever. Patient is receiving vancomycin starting on 10/03/2015 for possible pneumonia. 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 1+ Usual Respiratory Aline Gram Stain Result 3+ White Blood Cells 2+ Epithelial cells 1+ Gram positive cocci Culture, Blood [[id number]] Collected: 10/03/15 1459 Order Status: Completed Lab Status: Preliminary result Updated: 10/04/15 0311 Specimen Information: Blood / Peripheral Blood Culture Result: No growth: Monitored continually by instrument for 5 days Culture, Blood [[id number]] Collected: 10/03/15 1448 Order Status: Completed Lab Status: Preliminary result Updated: 10/04/15 0311 Specimen Information: Blood / Peripheral Blood Culture Result: No growth: Monitored continually by instrument for 5 days Culture, Blood [[id number]] Order Status: Canceled Lab Status: No result Specimen Information: Blood / Peripheral Blood Culture, Urine [[id number]] Collected: 10/03/15 0543 Order Status: Completed Lab Status: Preliminary result Updated: 10/04/15 0714 Specimen Information: Urine / Urine, clean catch Culture No growth to date Culture, MRSA [[id number]] Collected: 10/03/15 0449 Order Status: Completed Lab [...] pain, productive cough, and fever. Transfer from [place] . She had SCC right lung with [...] and Monitoring Protocol Electronically signed by: Charity iNelson PHARMD 10/05/2015 10:05 Charity Ferrell PharmD - 10/04/19 16 3:19 PM PDT VANCOMYCIN PER PHARMACY PROTOCOL: Subjective/Objective: Thea Carmona is a 70 y.o. female admitted on 10/03/2015 for Dyspnea, cough, chest pa in, and fever. Patient is receiving vancomycin starting on 10/03/2015 for possible pneumonia. 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 1+ Usual Respiratory Aline Gram Stain Result 3+ White Blood Cells 2+ Epithelial cells 1+ Gram positive cocci Culture, Blood [[id number]] Collected: 10/03/15 1459 Order Status: Completed Lab Status: Preliminary result Updated: 10/04/15310 Specimen Information: Blood / Peripheral Blood Culture Result: No growth: Monitored continually by instrument for 5 days Culture, Blood [[id number]] Collected: 10/03/15 1448 Order Status: Completed Lab Status: Preliminary result Updated: 10/04/15310 Specimen Information: Blood / Peripheral Blood Culture Result: No growth: Monitored continually by instrument for 5 days Culture, Blood [[id number]] Order Status: Canceled Lab Status: No result Specimen Information: Blood / Peripheral Blood Culture, Urine [[id number]] Collected: 10/03/15 0543 Order Status: Completed Lab Status: Preliminary result Updated: 10/04/15713 Specimen Information: Urine / Urine, clean catch Culture No growth to date Culture, MRSA [[id number]] Collected: 10/03/15 0449 Order Status: Completed Lab Status: Final result Updated: 10/04/15 1031 Specimen Information: Respiratory / Nares Culture Negative for MRSA by chromogenic agar method UA: moderate blood, 5-10 RBC, 5-10 squamous epi cells, few budding yeasts, bacteria (-) Recent Labs Lab 10/04/15 0447 10/03/15 0535 WBC 12.4* 16.4* CREA 0.92 1.00 Imagin10/04/15 [...] pain, productive cough, and fever. Transfer from [place] . She had SCC right lung with [...] AM PDT HOSPITALIST PROGRESS NOTE on 10/04/2015 [facility] Pt. Name/Age/: Thea Carmona 70 y.o. 1945 Med. Record Number: [id number] Primary Care Physician: Davis Ivan MD Date [...] last few weeks. Came to ER in [place] and was sent here for pneumonia. Sees [...] 9:02 AM Selected Labs/Studies: Recent Labs Lab 10/04/157 10/03/15 0535 WBC 12.4* 16.4* HGB 11.3* 12.4 HCT 35.4 39.0 PLT 194 198 Recent Labs Lab 10/04/157 10/03/15 0535 NA 139 137 K 3.8 3.6 CL 106 103 CO2 26 26 BUN 15 9 CREA 0.92 1.00 CALCIUM 7.9* 8.1* ALBUMIN -- 2.7* BILITOT -- 0.7 ALT -- 23 AST -- 29 ALKPHOS -- 57 No results for input(s): PHART, PO2ART, SCY6MAC, Q3OLHRRQ, BEART in the last 168 hours. No results for input(s): TROPONINT, BNP in the last 168 hours. Invalid input(s): CKTOTAL, TROPONINI, CKMBINDEX Recent Labs Lab 10/03/15 0535 INR 1.03 No results found for: POCGLU Micro results last 72hrs: Microbiology Results (72 hrs) Procedure Component Value Units Date/Time Culture, Respiratory, Lower, Smear [[id number]] Collected: 10/03/15 1756 Order Status: Completed Lab Status: Preliminary result Updated: 10/04/15 07 Specimen Information: Respiratory / Sputum, expectorated Culture Culture in progress... 1+ Usual Respiratory Aline Gram Stain Result 3+ White Blood Cells 2+ Epithelial cells 1+ Gram positive cocci Culture, Blood [[id number]] Collected: 10/03/15 1459 Order Status: Completed Lab Status: Preliminary result Updated: 10/04/15310 Specimen Information: Blood / Peripheral Blood Culture Result: No growth: Monitored continually by instrument for 5 days Culture, Blood [[id number]] Collected: 10/03/15 1448 Order Status: Completed Lab Status: Preliminary result Updated: 10/04/15310 Specimen Information: Blood / Peripheral Blood Culture Result: No growth: Monitored continually by instrument for 5 days Culture, Urine [[id number]] Collected: 10/03/15 0543 Order Status: Completed Lab Status: Preliminary result Updated: 10/04/15 0714 Specimen Information: Urine / Urine, clean catch Culture No growth to date Culture, MRSA [[id number]] Collected: 10/03/15 0449 Order Status: Completed Lab [...] hydroxide, ondansetron OR ondansetron DVT Prophylaxis Lovenox [facility] Documentation I expect this patient will be hospitalized for greater than 2-midnights and expect the post -hospital plan to be discharge to home or to an adult foster home. Electronically signed by: Bony Hernandez MD, 10/04/2015 10:05 [facility] Portions of this chart may have been created [employer] voice recognition software. 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 ([facility]) (07/11/2014); MARCE (obstructive sleep apnea); Full de [...] Value Units Date/Time Culture, Respiratory, Lower, Smear [[id number]] Order Status: Sent Lab Status: No result Specimen Information: Respiratory / Sputum, expectorated Culture, Urine [[id number]] Collected: 10/03/15 0543 Order Status: Resulted Lab Status: In process Updated: 10/03/15615 Specimen Information: Urine / Urine, clean catch Culture, MRSA [[id number]] Collected: 10/03/15 0449 Order Status: Sent Lab Status: In process Updated: 10/03/15517 Specimen Information: Respiratory / Nares UA: moderate [...] pain, productive cough, and fever. Transfer from [place] . She had SCC right lung with [...] AM PDT HOSPITALIST PROGRESS NOTE on 10/03/2015 [facility] Pt. Name/Age/: Thea Carmona 70 y.o. 1945 Med. Record Number: [id number] Primary Care Physician: Davis Ivan MD Date [...] last few weeks. Came to ER in [place] and was sent here f or pneumonia. Sees Dr. Park and Dr. Taylor. Placed on steroids and antibiotics as well as aggressive RT. No better this morning. Takes 8 mg dilaudid every 3 hours at [facility]. 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 Last chest CT six months ago here. With her rather large doses of dilaudid at [facility], we need to keep in mind the [...] 57 No results for input(s): PHART, PO2ART, NBH8GAZ, Y5MOWCGU, BEART in the last 168 hours. No results for input(s): TROPONINT, BNP in the last 168 hours. Invalid input(s): CKTOTAL, TROPONINI, CKMBINDEX Recent Labs Lab 10/03/15 0535 INR 1.03 No results found for: POCGLU Micro results last 72hrs: Microbiology Results (72 hrs) Procedure Component Value Units Date/Time Culture, Urine [[id number]] Collected: 10/03/15 0543 Order Status: Resulted Lab Status: In process Updated: 10/03/15615 Specimen Information: Urine / Urine, clean catch Culture, MRSA [[id number]] Collected: 10/03/15 0449 Order Status: Sent Lab Status: In process Updated: 10/03/15517 Specimen Information: Respiratory / Nares MEDICATIONS: SCHEDULED [...] hydroxide, ondansetron OR ondansetron DVT Prophylaxis Lovenox [facility] Documentation I expect this patient will be hospitalized for greater than 2-midnights and expect the post -hospital plan to be discharge to home or to an adult foster home. Electronically signed by: Bony Hernandez MD, 10/03/2015 8:19 [facility] Portions of this chart may have been created [employer] recognition software. Occas ional wrong-word or sound-alike substitutions may have occurred due to the inherent li mitations of voice recognition software. Please read the chart carefully and recognize, usin g context, where these substitutions have occurred. documented in this encounter H&P Notes Dimitri Kim MD - 10/03/2015 5:22 AM PDTFormatting of this note might be different f rom the original. [facility] HISTORY AND PHYSICAL Pt. Name/Age/: Thea Carmona 70 y.o. 1945 Date of admission: 10/03/2015 Admitting Physician: Dimitri Kim MD Primary Care Provider: Davis Ivan MD CHIEF COMPLAINT: Dyspnea, cough, chest pain, fever. HISTORY OF PRESENT ILLNESS: This is a 70 y.o. female with a history of COPD and lung CA who presents with 2 day histor y of Increasing dyspnea, wheezing, right-sided chest pain, productive cough and fever. Geiger sferred from [place] ED. PM SCC right lung with RLL lobectomy 08/2013, XRT and CMT for recurrence 07/2014. Most recen tly treated with Opdvio completing 6 cycles on 09/12/2015. Opdivo may cause pulmonary toxicit y. She reports 3 rounds of ABX in recent weeks. Oncology appt. Today. In the emergency department, Febrile with WBC 16k, CXR shows post-op changes but no new in filtrate. PAST MEDICAL and SURGICAL HISTORY: Past Medical History Diagnosis Date COPD (chronic obstructive pulmonary disease) ([facility]) on albuterol Spondylolisthesis of cervical region Spinal stenosis has tried cortisone injections Osteoporosis Depression Pneumonia 2008 hospitalized 5 days Rheumatoid arthritis(714.0) ([facility]) [facility] Hyperlipidemia on simvastatin Hypertension on clonidine and lisinopril Hypothyroidism GERD (gastroesophageal reflux disease) Stroke ([facility]) 2007 Stroke (HCC) 2008 Squamous cell carcinoma [...] C.M.C. Arthroplasty; Surgeon: Giuliano Padilla MD; Location: [facility] HISTORY: family history includes Alcohol abuse in her brother; COPD in her sister; Cancer in her fat her; Lung cancer in her brother; Tobacco Use in her brother and sister. SOCIAL HISTORY: reports that she quit smoking about 3 years ago. Her smoking use included Cigarettes. She has a 50 pack-year smoking history. She has never used smokeless tobacco. She reports that s he does not drink alcohol or use illicit drugs. REVIEW OF SYSTEMS: Significant for . A complete 14-system review was otherwise negative except as noted in th e HPI. HOME MEDICATIONS: Current Discharge Medication List CONTINUE these medications which have NOT CHANGED Details albuterol 90 mcg/puff inhaler Inhale 2 puffs into the lungs every 6 hours as needed for Whe ezing or Shortness of Breath. Qty: 1 Inhaler, Refills: PRN albuterol-ipratropium (DUONEB) 2.5-0.5 mg/3 mL SOLN Take 3 mLs by nebulization 4 times massimo y. CASIE: 12 months Dx: J44.9 Qty: 360 mL, Refills: 11 Associated Diagnoses: Chronic obstructive pulmonary disease, unspecified COPD type (HCC) aspirin 81 MG tablet Take 81 mg by mouth Daily. Blood Pressure Monitoring (BLOOD PRESSURE CUFF) [facility] Please provide patient with appropriat e sized blood pressure cuff for 12.5" arm. Dx: Hypertension I10 CASIE: 99 months Qty: 1 each, Refills: 0 cholecalciferol (VITAMIN D-3) 1,000 units capsule Take 1,000 Units by mouth Daily. cloNIDine (CATAPRES) 0.1 mg tablet Take by mouth Daily. clopidogrel (PLAVIX) 75 mg tablet Take 75 mg by mouth Daily. diazepam (VALIUM) 2 mg tablet nightly as needed. Refills: 0 ferrous sulfate (IRON) 28 MG TABS Take 28 mg by mouth Daily. Fexofenadine HCl (ETHAN ALLERGY PO) Take by mouth Daily. fluticasone-vilanterol (BREO ELLIPTA) 200-25 mcg/puff inhaler Inhale 1 puff into the lungs Daily. Qty: 1 each, Refills: 11 folic acid 1 mg tablet Take 1 mg by mouth Daily. guaiFENesin (MUCINEX) 600 mg 12 hr tablet Take 1,200 mg by mouth as needed. HYDROcodone-acetaminophen (HYCET) 7.5-325 mg/15 mL liquid Take 15 mLs by mouth 4 times massimo y as needed for Pain. HYDROmorphone (DILAUDID) 4 MG tablet Take 8 mg by mouth every 6 hours as needed. levothyroxine (SYNTHROID) 100 mcg tablet Take 75 mcg by mouth every morning (before breakfa st). LORazepam (ATIVAN) 1 mg tablet Take 1 mg by mouth every 6 hours as needed for Anxiety. Magnesium 100 MG CAPS Take by mouth Daily. omeprazole (PRILOSEC) 40 MG capsule Take 1 capsule by mouth every morning (before breakfast ). Qty: 30 capsule, Refills: 11 Associated Diagnoses: Gastroesophageal reflux disease without esophagitis !! predniSONE (DELTASONE) 10 mg tablet 4 tabs orally daily for 3 days then decrease by 1 ta b every 3 days. Resume 10mg dose when complete. Qty: 30 tablet, Refills: 0 !! predniSONE (DELTASONE) 5 mg tablet Take 10 mg by mouth Daily. ranitidine (ZANTAC) 150 mg tablet Take 1 tablet by mouth 2 times daily. Qty: 60 tablet, Refills: 3 Associated Diagnoses: Gastroesophageal reflux disease without esophagitis Respiratory Therapy Supplies (NEBULIZER COMPRESSOR) KIT Use as directed with nebulizer [facility]. Dx: J43.1 CASIE: 99 months Qty: 1 each, Refills: 0 simvastatin (ZOCOR) 40 mg tablet Take 40 mg by mouth nightly. venlafaxine (EFFEXOR) 75 MG tablet Take 37.5 mg by mouth 2 times daily. !! - Potential duplicate medications found. Please discuss with provider. ALLERGIES: No Known Allergies VITAL SIGNS: Temp: 36.8 C (98.2 F), Pulse: 91, Resp: 17, BP: 117/63 mmHg, SpO2 95 % on nasal cannula at flow rate 2L/min Temp Min: 36.8 C (98.2 F) Max: 36.8 C (98.2 F) Weight: 81.6 kg (179 lb 14.3 oz) PHYSICAL EXAMINATION: Gen Mary Anne - alert, cooperative and mild distress, Head - Normocephalic, without obvious abnormality Eyes - PERRL, conjunctiva/corneas clear ENT - mucous membranes moist Neck - supple. NV flat. Lungs - Moderate diffuse expiratory wheezes plus crackles. Port left chest. Heart - RR. No murmur or gallop. Abdomen - Soft and nontender. No masses or organomegaly. Bowel sounds active. Extremities - 1+ peripheral edema, no clubbing or cyanosis Skin - No rash or lesions. Neurologic - Alert and oriented x 3. CN II-XII intact. No focal deficits. DIAGNOSTIC STUDIES: Available data and images were reviewed personally. Significant results and findings are a ddressed here or in the Assessment and Plan. CXR: Reviewed independently by me. The CXR shows no acute infiltrate. Post-surgical change s are noted. No official reading. ASSESSMENT and PLAN: Suspect pneumonia with fever, leukocytosis and current symptoms. COPD with bronchospasm SCC lung, recurrent. HTN RA Plan-Rx Zosyn, nebs, prednisone. Consult oncology. DVT Prophylaxis low molecular weight heparin Code Status full CMS Documentation I expect this patient will be hospitalized for greater than 2-midnights and expect the post -hospital plan to be discharge to home or to an adult foster home. Total of 60 minutes were required to complete the admission process. Reviewed and summa rized past medical records. Medical Decisionmaker: patient Electronically signed by: Dimitri Kim MD 10/03/2015 5:22 [facility] Portions of this chart may have been created with [employer] voice recognition software. Occasi onal wrong-word or sound-alike substitutions may have occurred due to the inherent guzman itations of voice recognition software. Please read the chart carefully and recognize, using context, where these substitutions have occurred documented in this encounter Miscellaneous Notes Plan of Care - Ayana Ayon MSW - 10/06/2015 1:08 PM PDTPatient to discharge home to day. This CM contacted ZEV Conway from [facility] who states that she will follow up with jessica keenan on Thursday for follow up. No further questions or concerns. Electronically signed by: CLAIRE Hernandez 10/06/2015 13:12Electronically signed by CLAIRE Costello at 016 1:12 PM PDTPlan of Care - Kodak Nayak RN - 10/06/2015 12:45 PM PDTProblem: Patien t Care Overview (Adult) Goal: Care Team Goals & Evaluation PROBLEM-RELATED GOALS: 1. Codi will have a rated pain of <6/10 by 10-05-15 2. No new s/s of infection through 10-07-15 3. No falls or injuries through 10-07-15 4. Breath sounds will return to baseline by 10-07-15 5. No development of DVTs through 10-07-15 STRATEGY TO ACHIEVE GOALS: Assess px Q4hrs and give scheduled and PRN px meds as needed. Monitor all VS and notify MD of any concerns, give all Abx as ordered. Provide supervision and equipment as needed for ambulation. Ensure alarms are active if nec essary. Have Codi participate with RT, ensure O2 is provided as necessary, administer all steroids as ordered. Administer Lovenox as ordered Outcome: Adequate for Discharge Date Met: 10/06/15 Goal Evaluation: Pt on RA without c/o SOB. Chronic pain with PO meds coverage. No falls or injuries while h ere. Discharging with PO anti-biotics. lan of Care - Diann Sunshine RN - 10/06/2015 9:03 AM PDTProblem: Patient Care Overview (Adult) Goal: Care Team Goals & Evaluation PROBLEM-RELATED GOALS: 1. Codi will have a rated pain of <6/10 by 10-05-15 2. No new s/s of infection through 10-07-15 3. No falls or injuries through 10-07-15 4. Breath sounds will return to baseline by 10-07-15 5. No development of DVTs through 10-07-15 STRATEGY TO ACHIEVE GOALS: Assess px Q4hrs and give scheduled and PRN px meds as needed. Monitor all VS and notify MD of any concerns, give all Abx as ordered. Provide supervision and equipment as needed for ambulation. Ensure alarms are active if nec essary. Have Codi participate with RT, ensure O2 is provided as necessary, administer all steroids as ordered. Administer Lovenox as ordered Outcome: Improving Goal Evaluation: Codi did not meet this goal all night but she did most of the night, sleeping well in betwe en pain medication. She had no new s/s of infection and no falls during this shift. Her alexandru th sounds still had inspiratory wheezes and her sats were 96-98%. She had no s/s of DVT's du ring this shift. She is voiding without difficulty and her last BM was 10/05/15, BT are activ e. lan of Care - Viki Michelle, SHIPPING TEAM LEADER - 10/05/2015 8:03 PM PDTProblem: Patient Care Overview (Adult) Goal: Care Team Goals & Evaluation PROBLEM-RELATED GOALS: 1. Codi will have a rated pain of <6/10 by 10-05-15 2. No new s/s of infection through 10-07-15 3. No falls or injuries through 10-07-15 4. Breath sounds will return to baseline by 10-07-15 5. No development of DVTs through 10-07-15 STRATEGY TO ACHIEVE GOALS: Assess px Q4hrs and give scheduled and PRN px meds as needed. Monitor all VS and notify MD of any concerns, give all Abx as ordered. Provide supervision and equipment as needed for ambulation. Ensure alarms are active if nec essary. Have Codi participate with RT, ensure O2 is provided as necessary, administer all steroids as ordered. Administer Lovenox as ordered RESTRAINT-RELATED GOALS: STRATEGIES TO ACHIEVE RESTRAINT GOALS: Goal Evaluation: remains on room air-sao2 95%. BS exp wheezes. Neb txs given via mask, tolerates well. lan of Care - Lokesh Flores, SHIPPING TEAM LEADER - 10/05/2015 4:56 PM PDTProblem: Patient Care Overview (Adult) Goal: Care Team Goals & Evaluation PROBLEM-RELATED GOALS: 1. Codi will have a rated pain of <6/10 by 10-05-15 2. No new s/s of infection through 10-07-15 3. No falls or injuries through 10-07-15 4. Breath sounds will return to baseline by 10-07-15 5. No development of DVTs through 10-07-15 STRATEGY TO ACHIEVE GOALS: Assess px Q4hrs and give scheduled and PRN px meds as needed. Monitor all VS and notify MD of any concerns, give all Abx as ordered. Provide supervision and equipment as needed for ambulation. Ensure alarms are active if nec essary. Have Codi participate with RT, ensure O2 is provided as necessary, administer all steroids as ordered. Administer Lovenox as ordered RESTRAINT-RELATED GOALS: STRATEGIES TO ACHIEVE RESTRAINT GOALS: Outcome: Improving Goal Evaluation: BS scattered wheezes that clear mostly neb, SpO2 95% on RA, harsh NPC, Duonebs remain QID w ith Pulmicort BID and Albuterol prn, continue to monitor lan of Albina Almodovar, MAJO - 10/05/2015 2:36 PM PDTProblem: Patient Care Overview (Adult) Goal: Care Team Goals & Evaluation PROBLEM-RELATED GOALS: 1. Codi will have a rated pain of <6/10 by 10-05-15 2. No new s/s of infection through 10-07-15 3. No falls or injuries through 10-07-15 4. Breath sounds will return to baseline by 10-07-15 5. No development of DVTs through 10-07-15 STRATEGY TO ACHIEVE GOALS: Assess px Q4hrs and give scheduled and PRN px meds as needed. Monitor all VS and notify MD of any concerns, give all Abx as ordered. Provide supervision and equipment as needed for ambulation. Ensure alarms are active if nec essary. Have Codi participate with RT, ensure O2 is provided as necessary, administer all steroids as ordered. Administer Lovenox as ordered RESTRAINT-RELATED GOALS: STRATEGIES TO ACHIEVE RESTRAINT GOALS: Outcome: Improving Goal Evaluation: Patient was wheezy this morning with improved air exchange after treatments. She remains on room air. Continue current therapy. lan of Devin Knowles RN - 10/05/2015 4:22 AM PDTProblem: Patient Care Overview (Adult) Goal: Care Team Goals & Evaluation PROBLEM-RELATED GOALS: 1. Codi will have a rated pain of <6/10 by 10-05-15 2. No new s/s of infection through 10-07-15 3. No falls or injuries through 10-07-15 4. Breath sounds will return to baseline by 10-07-15 5. No development of DVTs through 10-07-15 STRATEGY TO ACHIEVE GOALS: Assess px Q4hrs and give scheduled and PRN px meds as needed. Monitor all VS and notify MD of any concerns, give all Abx as ordered. Provide supervision and equipment as needed for ambulation. Ensure alarms are active if nec essary. Have Codi participate with RT, ensure O2 is provided as necessary, administer all steroids as ordered. Administer Lovenox as ordered RESTRAINT-RELATED GOALS: STRATEGIES TO ACHIEVE RESTRAINT GOALS: Outcome: Improving Goal Evaluation: Tried to manage px with po meds (pt stated that she want to be home for Mother's Day and co uldn't if taking IV meds), IV dilaudid given x1 for breakthrough pain. Zosyn hung as ordered, no s/s of new infection. Independent in room, no falls or injuries On R/A No s/s of DVT Slept well between cares lan of Care - Humphrey Peguero RRT - 10/04/2015 10:50 PM PDTProblem: Patient Care Overview (Adult) Goal: Care Team Goals & Evaluation PROBLEM-RELATED GOALS: 1. Codi will have a rated pain of <6/10 by 10-05-15 2. No new s/s of infection through 10-07-15 3. No falls or injuries through 10-07-15 4. Breath sounds will return to baseline by 10-07-15 5. No development of DVTs through 10-07-15 STRATEGY TO ACHIEVE GOALS: Assess px Q4hrs and give scheduled and PRN px meds as needed. Monitor all VS and notify MD of any concerns, give all Abx as ordered. Provide supervision and equipment as needed for ambulation. Ensure alarms are active if nec essary. Have Codi participate with RT, ensure O2 is provided as necessary, administer all steroids as ordered. Administer Lovenox as ordered RESTRAINT-RELATED GOALS: STRATEGIES TO ACHIEVE RESTRAINT GOALS: Goal Evaluation: SpO2 94 % on room air. Breath sounds exp wheezes. Takes treatments well with mask. Will co ntinue to monitor lan of Care - Jewel Sam RN - 10/04/2015 5:01 PM PDTProblem: Patient Care Overview (Adult) Goal: Care Team Goals & Evaluation PROBLEM-RELATED GOALS: 1. Codi will have a rated pain of <6/10 by 10-05-15 2. No new s/s of infection through 10-07-15 3. No falls or injuries through 10-07-15 4. Breath sounds will return to baseline by 10-07-15 5. No development of DVTs through 10-07-15 STRATEGY TO ACHIEVE GOALS: Assess px Q4hrs and give scheduled and PRN px meds as needed. Monitor all VS and notify MD of any concerns, give all Abx as ordered. Provide supervision and equipment as needed for ambulation. Ensure alarms are active if nec essary. Have Codi participate with RT, ensure O2 is provided as necessary, administer all steroids as ordered. Administer Lovenox as ordered RESTRAINT-RELATED GOALS: STRATEGIES TO ACHIEVE RESTRAINT GOALS: Outcome: Improving Goal Evaluation: Patient pain controlled with prn meds, breath sounds diminished but now on room air. No s/ s of dvt. No falls or injuries today. lan of Care - Lokesh Flores RRT - 10/04/2015 4:06 PM PDTFormatting of this note might be different from sarah e original. Problem: Patient Care Overview (Adult) Goal: Care Team Goals & Evaluation PROBLEM-RELATED GOALS: 1. Codi will have a rated pain of <6/10 by 10-05-15 2. No new s/s of infection through 10-07-15 3. No falls or injuries through 10-07-15 4. Breath sounds will return to baseline by 10-07-15 5. No development of DVTs through 10-07-15 STRATEGY TO ACHIEVE GOALS: Assess px Q4hrs and give scheduled and PRN px meds as needed. Monitor all VS and notify MD of any concerns, give all Abx as ordered. Provide supervision and equipment as needed for ambulation. Ensure alarms are active if nec essary. Have Codi participate with RT, ensure O2 is provided as necessary, administer all steroids as ordered. Administer Lovenox as ordered RESTRAINT-RELATED GOALS: STRATEGIES TO ACHIEVE RESTRAINT GOALS: Outcome: Improving Goal Evaluation: BS scattered wheezes and diminished, SpO2 93% on RA - may need O2 tonight while sleeping, D uonebs remain QID with Pulmicort BID, continue to monitor Severity Score 9 Class 3 Severity Score 0-4 ITEM 0 1 2 3 4 2 Respiratory History No Smoking history Current tobacco use Up to 10 Pack year history. Simple home regimen Known Pulmonary Disease 20 pack year history Complex Home regimen 30+ pack year history Severe Pulmonary Disease or exacerbation 0 Surgery Status (current admission) No surgery Minor surgery Lower abdominal rib fractures Thoracic or uppe r abdominal Thoracic with pulmonary disease or Central Nervous System 2 Chest X-RAY Clear or Normal baseline Unavailable Improving/clearing Abnormal, Unilateral or mild Infiltrates or atelectasis, Chronic changes Infiltrates mild bilateral or unilateral or pleural effusions extensive Inf iltrates, atelectasis or pleural effusions, pneumothorax 2 Respiratory Pattern Regular pattern Respiratory Rate:8-20 Increased Respiratory Rate, labored Dyspnea on exertion, irregular pattern Use of accessory muscles, prolonged expirato ry phase nasal flaring Severe Dyspnea , Purse Lip Breathing, Use of accessory muscles 3 Breath Sounds Clear Diminished unilaterally Diminished bilaterally &/or crackles Wheezing or Rhonchi &/or absent unilateral Absent bilaterally 0 Cough Strong, non productive Moderate, loose, productive Weak, non-productive Weak, ineffective Non-spontaneous or may require suctioning 0 Sputum None Scant / Thin White/clear Moderate Beige/ yellow Large / Thick Dark Green/Brown Copious / Plugs Hemoptysis luli 0 LOC Alert, oriented, cooperative Disoriented, follows commands Obtunded, arousable, follo ws commands Obtunded, uncooperative, sedated Comatose 0 Oxygen Demand Room air Baseline 1-2 liters 3-6 liters >7 Liters Oxymizer to > 55% 60% or greater Total Severity Score (SS) Class 0-3 1 4-7 2 8-11 3 12-14 4 15+ 5 lan of Care - Lexie Toribio RRT - 10/04/2015 4:58 AM PDTProblem: Patient Care Overview (Adult) Goal: Care Team Goals & Evaluation PROBLEM-RELATED GOALS: 1. Codi will have a rated pain of <6/10 by 10-05-15 2. No new s/s of infection through 10-07-15 3. No falls or injuries through 10-07-15 4. Breath sounds will return to baseline by 10-07-15 5. No development of DVTs through 10-07-15 STRATEGY TO ACHIEVE GOALS: Assess px Q4hrs and give scheduled and PRN px meds as needed. Monitor all VS and notify MD of any concerns, give all Abx as ordered. Provide supervision and equipment as needed for ambulation. Ensure alarms are active if nec essary. Have Codi participate with RT, ensure O2 is provided as necessary, administer all steroids as ordered. Administer Lovenox as ordered RESTRAINT-RELATED GOALS: STRATEGIES TO ACHIEVE RESTRAINT GOALS: Goal Evaluation: Patient on 2lpm cannula with SPO2 97% through night. Breathing treatments given as schedul ed. Breath sounds appear coarse with crackles and expiratory wheezes. lan of Care - Devin Pretty RN - 10/04/2015 3:56 AM PDTProblem: Patient Care Overview (Adult) Goal: Care Team Goals & Evaluation PROBLEM-RELATED GOALS: 1. Codi will have a rated pain of <6/10 by 10-05-15 2. No new s/s of infection through 10-07-15 3. No falls or injuries through 10-07-15 4. Breath sounds will return to baseline by 10-07-15 5. No development of DVTs through 10-07-15 STRATEGY TO ACHIEVE GOALS: Assess px Q4hrs and give scheduled and PRN px meds as needed. Monitor all VS and notify MD of any concerns, give all Abx as ordered. Provide supervision and equipment as needed for ambulation. Ensure alarms are active if nec essary. Have Codi participate with RT, ensure O2 is provided as necessary, administer all steroids as ordered. Administer Lovenox as ordered RESTRAINT-RELATED GOALS: STRATEGIES TO ACHIEVE RESTRAINT GOALS: Outcome: Improving Goal Evaluation: 1. Codi has a combination of chronic joint pain and new chest pain; Pain is rated 8/10 and controlled with 1mg of IV dilaudid and 8mg of po dilaudid Q4hrs. 2. IV abx hung, no new s/s of infection 3. No falls or injuries, modified independent in the room, needs help with IV pole. 4. Lung sounds are wheezy throughout. Slept between cares, A&O x4, unit draw through port. lan of Care - Darcy Kim RN - 10/03/2015 6:18 PM PDTProblem: Patient Care Overview (Adult) Goal: Care Team Goals & Evaluation PROBLEM-RELATED GOALS: STRATEGY TO ACHIEVE GOALS: RESTRAINT-RELATED GOALS: STRATEGIES TO ACHIEVE RESTRAINT GOALS: Goal Evaluation: Pt received from ICU. Alert and orient. L chest portacath patent, flushed without difficult y. lan of [facility] - Tamika Castillo i, Industrial Automation Specialist-Clinical - 10/03/2015 12:24 PM PDTDischarge plans: This CM attempted to visit patient but she was sound asleep with her lights out so will vis it later this afternoon to discuss her discharge plans. 15:24 This CM met with patient at her bedside since this time she was awake. She stated that she was transferred here via ground ambulance from [facility]. She reports that she lives alone in [place] and does not drive but her boyfriend Mirza kilgore, of 16 years, will be her transport back home and he is her transportation to and fr om her appts, etc. Her PCP is Davis Ivan in [place] and she uses [facility] for her pharmacy needs. She is a current patient of Dr. Park and just found out that her new chemo drug was approved and so will start this when she is medically ready after her pneumonia stay. Her bathroom is all equipped with grab bars, shower chair, and hand held shower head. She does not use any home 02 or CPAP, but does use a cane and has a 4WW with seat that she also uses. [facility]ru the [facility] in [place], she receives 5 hr/day 6 days a week of caregiving who help her with her daily needs, etc. She also reports that she has an RN come once monthly to check on her and thinks it is from [place] benefit as well. CM will need to follow closer to discharge if patient will need any home 02, since she is n ot on home 02 currently. Electronically signed by: GEORGE Herman MANAGER 10/03/2015 15:40 lan of Care - Joe Hernandez RRT - 10/03/2015 11:18 AM PDTFormatting of this note might be di fferent from the original. Problem: Patient Care Overview (Adult) Goal: Personalization Needs & Preferences Outcome: Improving Lung sounds are clear and dim with occasional rhonchi, which clears with coughing. SpO2: 96 % on 2liters/minute nasal cannula. .Severity Score 10 Class 3 Severity Score 0-4 ITEM 0 1 2 3 4 3 Respiratory History No Smoking history Current tobacco use Up to 10 Pack year history. Simple home regimen Known Pulmonary Disease 20 pack year history Complex Home regimen 30+ pack year history Severe Pulmonary Disease or exacerbation 0 Surgery Status (current admission) No surgery Minor surgery Lower abdominal rib fractures Thoracic or uppe r abdominal Thoracic with pulmonary disease or Central Nervous System 1 Chest X-RAY Clear or Normal baseline Unavailable Improving/clearing Abnormal, Unilateral or mild Infiltrates or atelectasis, Chronic changes Infiltrates mild bilateral or unilateral or pleural effusions extensive Inf iltrates, atelectasis or pleural effusions, pneumothorax 0 Respiratory Pattern Regular pattern Respiratory Rate:8-20 Increased Respiratory Rate, labored Dyspnea on exertion, irregular pattern Use of accessory muscles, prolonged expirato ry phase nasal flaring Severe Dyspnea , Purse Lip Breathing, Use of accessory muscles 2 Breath Sounds Clear Diminished unilaterally Diminished bilaterally &/or crackles Whee zing or Rhonchi &/or absent unilateral Absent bilaterally 1 Cough Strong, non productive Moderate, loose, productive Weak, non-productive Weak, ineffective Non-spontaneous or may require suctioning 2 Sputum None Scant / Thin White/clear Moderate Beige/ yellow Large / Thick Dark Green/Brown Copious / Plugs Hemoptysis luli 0 LOC Alert, oriented, cooperative Disoriented, follows commands Obtunded, arousable, f ollows commands Obtunded, uncooperative, sedated Comatose 1 Oxygen Demand Room air Baseline 1-2 liters 3-6 liters >7 Liters Oxymizer to > 55% 60% or greater Total Severity Score (SS) Class 0-3 1 4-7 2 8-11 3 12-14 4 15+ 5 lan of Care - Festus jain, SHIPPING TEAM LEADER - 10/03/2015 5:26 AM PDT Thea Carmona Transferred in early this morning. She reported to me she takes Albut arun 2.5 mg QID, Duoneb QID and Breo Elipta 200-25 mcg INH 1x daily. She states she had a r ight lower lobectomy. She states she is in not short of breath and doesn't appear to me to b e in acute respiratory distress. SpO2 stable on 02 lpm O2. Thea said she smoked at least 1 pack of cigarettes per day for 60+years. RT will continue to monitor and order Tx's and ther apy as indicated. Severity Score 09 Class 03 Severity Score 0-4 ITEM 0 1 2 3 4 3 Respiratory History No Smoking history Current tobacco use Up to 10 Pack year history. Simple home regimen Known Pulmonary Disease 20 pack year history Complex Home regimen 30+ pack year history Severe Pulmonary Disease or exacerbation 0 Surgery Status (current admission) No surgery Minor surgery Lower abdominal rib fractures Thoracic or uppe r abdominal Thoracic with pulmonary disease or Central Nervous System 1 Chest X-RAY Clear or Normal baseline Unavailable Improving/clearing Abnormal, Unilateral or mild Infiltrates or atelectasis, Chronic changes Infiltrates mild bilateral or unilateral or pleural effusions extensive Inf iltrates, atelectasis or pleural effusions, pneumothorax 0 Respiratory Pattern Regular pattern Respiratory Rate:8-20 Increased Respiratory Rate, labored Dyspnea on exertion, irregular pattern Use of accessory muscles, prolonged expirato ry phase nasal flaring Severe Dyspnea , Purse Lip Breathing, Use of accessory muscles 2 Breath Sounds Clear Diminished unilaterally Diminished bilaterally &/or crackles Wheezing or Rhonchi &/or absent unilateral Absent bilaterally 1 Cough Strong, non productive Moderate, loose, productive Weak, non-productive Weak, ineffective Non-spontaneous or may require suctioning 1 Sputum None Scant / Thin White/clear Moderate Beige/ yellow Large / Thick Dark Green/Brown Copious / Plugs Hemoptysis luli 0 LOC Alert, oriented, cooperative Disoriented, follows commands Obtunded, arousable, follo ws commands Obtunded, uncooperative, sedated Comatose 1 Oxygen Demand Room air Baseline 1-2 liters 3-6 liters >7 Liters Oxymizer to > 55% 60% or greater Total Severity Score (SS) Class 0-3 1 4-7 2 8-11 3 12-14 4 15+ 5 documented in this encounter Plan of Treatment +--------+---------+ + + + | Date | Type | Specialty | Care Team | Description | +--------+---------+ + + + | 03/06/ | Office | Rheumatology | Santosh Sumner, | | | 2019 | Visit | | [facility] [address] | | | | | | [facility] | | | | | | [place] [address] | | | | | | [phone] | | | | | | | [...] Vancomycin | 7.6 | <=20.0 ug/mL | [facility] | | | Random | | | [facility] | | [...] [address] | [place] | [phone] | | [facility] | | [address] | | | - LABORATORY | | [...] PARENCHYMAL SCAR. Dictated and Signed by: Herminio Dumont | MD Gurmeet Electronically signed: 10/04/2015 9:02 [...] | 0.92 | 0.60 - 1.30 | [facility] | [...] mL/min/1.73m2 | [facility] | | | [place] | RATE,ESTIMATED | | MEDICAL | | | | mL/min/1.13j1Voox than | | CENTER - | | [...] + | BUN/Creatin | 16.3 | | [facility] | | | ine Ratio | | [...] [address] | [place] | [phone] | | [facility] | | [address] | | | - LABORATORY | | | | + + + + + CBC with Differential (10/04/2015 4:47 AM PDT) + + + + + + | Component | Value | Ref Range | Performed | Pathologist | | | | | At | Signature | + + + + + + | White Blood | 12.4 (H) | 4.0 - 11.0 K/uL | [facility] | | | Cells | | | [facility] | | | | | | MEDICAL | | | | | | CENTER - | | | | | | LABORATORY | | + + + + + + | Red Blood | 3.75 | 3.70 - 5.20 | [...] ST[address] | [address] | [place], [place] | [phone] | | [facility] | | [address] | | | - LABORATORY | | [...] | | | | Aline | | . [facility] | | | [...] + | [facility] | [address] | [place] | [phone] | | [facility] | | [address] | | | - LABORATORY | | [...] + | [facility] | [address] | [place], [place] | [phone] | | [facility] | | [address] | | | - LABORATORY | | | | + + + + + Culture, Blood (10/03/2015 2:48 PM PDT) + + + + + + | Component | Value | Ref Range | Performed | Pathologist | | | | | At | Signature | + + + + + + | Culture | No Growth | | [facility] | | | | | [...] [address] | [place] | [phone] | | [facility] | | [address] | | | - LABORATORY | | [...] + | [facility] | [address] | [place] | [phone] | | [facility] | | [address] | | | - LABORATORY | | | | + + + + + Urinalysis with Microscopic with Culture if Indicated (10/03/2015 5:43 AM PDT) + + + + + + | Component | Value | Ref Range | Performed | Pathologist | | | | | At | Signature | + + + + + + | Color, | Straw | Light Yellow, | [facility] | | | Urine | | Yellow, Straw | [facility] | | | | | | MEDICAL | | | | | | CENTER - | | | | | | LABORATORY | | + + + + + + | Clarity, | Clear | | [facility] | | | Urine | [...] - 1.030 | [facility] | | | [place], | | | [facility] | | [...] + + + | White Blood | 0-2 | 0 - 2 /HPF | [facility] | | | Cells, | | | [facility] | | | Urine | | | MEDICAL | | | | | | CENTER - | | | | | | LABORATORY | | + + + + + + | Red Blood | 5-10 (A) | 0 - 2 /HPF | [facility] | | | Cells, | | | [facility] | | | Urine | | | MEDICAL | | | | | | CENTER - | | | | | | LABORATORY | | + + + + + + | Squamous | 5-10 (A) | 0 - 2 /LPF | [facility] | | | Epithelial | | | [facility] | | | Cells, | | | MEDICAL | | | Urine | | | CENTER - | | | | | | LABORATORY | | + + + + + + | Bacteria, | Negative | Negative /HPF | [facility] | | | Urine | | | [facility] | | | | | | MEDICAL | | | | | | CENTER - | | | | | | LABORATORY | | + + + + + + | Budding | Few (A) | Negative | [facility] | | | Yeast, | | | [facility] | | [...] [address] | [place] | [phone] | | [facility] | | [address] | | | - LABORATORY | | [...] + | [facility] | [address] | [place] | [phone] | | [facility] | | [address] | | | - LABORATORY | | [...] [address] | [place] | [phone] | | [facility] | | [address] | | | - LABORATORY | | [...] + + + + | eGFR, | 55 (L)Comment: | >=60 | [facility] | | | non- | GLOMERULAR FILTRATION | mL/min/1.73m2 | [facility] | | | [place] | RATE,ESTIMATED | | MEDICAL | | | | mL/min/1.37v5Dfqz than | | CENTER - | | [...] 8.1 (L) | 8.3 - 10.5 | [facility] | | | | | mg/dL | [...] | | | Total | | | [facility] | | | | | | MEDICAL | | | | | | CENTER - | | | | | | LABORATORY | | + + + + + + | Total | 5.6 (L) | 6.0 - 7.8 g/dL | [facility] | | | Protein | | | [facility] | | [...] + | [facility] | [address] | [place] | [phone] | | [facility] | | [address] | | | - LABORATORY | | | | + + + + + CBC with Differential (10/03/2015 5:35 AM PDT) + + + + + + | Component | Value | Ref Range | Performed | Pathologist | | | | | At | Signature | + + + + + + | White Blood | 16.4 (H) | 4.0 - 11.0 K/uL | [facility] | | | Cells | | | [facility] | | | | | | MEDICAL | | | | | | CENTER - | | | | | | LABORATORY | | + + + + + + | Red Blood | 4.13 | 3.70 - 5.20 | [...] [address] | [place] | [phone] | | [facility] | | [address] | | | - LABORATORY | | [...] + | [facility] | [address] | [place] | [phone] | | [facility] | | [address] | | | - LABORATORY | | [...] | | | | | Thu10/03/15 at 0800 | | | | | [...] 500 Units 500 Units ( | 16 12:04 | Units | | | | [...] | | | Pain, Starting 10/03/15 at 0815 | | | | | [...] | | | | PRN, Pain, Starting 10/03/15 at | | PM PDT [...] | | | | | Anxiety, Starting Thu10/03/15 at | | PM PDT [...] | | | | | 10/03/15 at 0615, For 1 dose, | | [...]
--- OUTSIDE RECORDS SUMMARY | ~2019-12-28 | XMS | Encounter Summary ---
Demographics + + + | Address | [address] | | | [place] [address] | + + + | Home Phone [...] [place] | | | | | [address] | | + + + + + Care Team Providers + +------+ + | Care Densitometer Reader Name | Role | Phone | + +------+ + | Davis Ivan MD | PCP | | + +------+ + Encounter Details +--------+ + + + + | Date | Type | Department | Care Team | Description | +--------+ + + + + | 06/26/ | Hospital | [facility] | Conversion | Pain | | 2015 | Encounter | CONVERSION [address] | Transaction, | | | | | [address] | Provider Unknown | | | | | [place] | [phone] | | | | | [address] | | | | | | [phone] | | | +--------+ + + + [...] | 2019 | Visit | | [address] | | | | | | [place] | | | | | | [place] [address] | | | | | | [phone] | | | | | | | [...] + + | Raoul Lockwood - 01/14/2019 3:09 AM PDT This is a non-reportable procedure | | without a radiologist report and isused for image storage only | + + documented in this encounter Visit Diagnoses + + | Diagnosis | + + | Pain Generalized pain | + + documented in this encounter"
--- OUTSIDE RECORDS SUMMARY | ~2019-12-28 | XMS | Encounter Summary ---
Demographics + + + | Address | [address] | | | [place] [address] | + + + | Home Phone [...] [address] | | | | | [address] | | + + + + + Care Team Providers + +------+ + | Care Bullet Maker Name | Role | Phone | + +------+ + | Caitlin Chino MD | PCP | | + +------+ + Reason for Visit +--------+--------+ + | Reason | Onset | Comments | | | Date | | +--------+--------+ + | Other | 09/11/ | Appeal for [employer]erman[employer] | | | 2019 | | +--------+--------+ + Encounter Details +--------+ + + + + | Date | Type | Department | Care Team | Description | +--------+ + + + + | 09/11/ | Telephone | [facility] | Eveline Jaffe | Other (Appeal for | | 2019 | | PULMONARY [address] | MD Ra[address] | [place]) | | | | [place], | [address] [place] | | | | | [place] [address] | [place] [address] | | | | | [phone] | [phone] | | | | | | | [...] this encounter Miscellaneous Notes Telephone Encounter - Marj Reno RN - 09/21/2019 10:01 AM [facility]alled [facility] . Medication was approved on 09/15/2019 with $0 co-pay. Closing encounter. Electronically sig angel by Marj Reno RN at 09/21/2019 10:01 AM PDTTelephone Encounter - Rukhsana Strong RN - 09/12/2019 11:42 AM PDTSignificant janette Blue came into the clinic with a medicati on authorization denial for Daliresp. He states patient has been doing very well on this med ication for years but now it is not covered and is very expensive. He requests we do an appe al. He brought the forms for us to fill out and send into the insurance. Forms were filled o ut and faxed in as Urgent since patient does not have any medication left. Will await the de cision and then let patient know. Electronically signed by Rukhsana Strong RN at 020 11:45 AM PDTdocumented in this encounter Plan of Treatment +--------+---------+ + + + | Date | Type | Specialty | Care Team | Description | +--------+---------+ + + + | 03/06/ | Office | Rheumatology | Santosh Sumner, | | | 2019 | Visit | | [address] | | | | | | [facility] | | | | | | [place] [address] | | | | | | [phone] | | | | | | | | +--------+---------+ + + + documented as of this encounter Visit Diagnoses Not on filedocumented in this encounter"
--- OUTSIDE RECORDS SUMMARY | ~2019-12-28 | XMS | Encounter Summary ---
Demographics + + + | Address | [address] | | | [place] [address] | + + + | Home Phone [...] [address] | | | | | [address] | | + + + + + Care Team Providers + +------+ + | Care Beamer Helper Name | Role | Phone | [...] + + | 10/07/ | Telephone | [facility] | Adelita Lu MD | Other | | 2013 | | MED CTR MEDICAL | Need updated | | | | | [facility] [address] | address | | | | | [address] | | | | | | [place] [address] | | | | | | [phone] | | | +--------+ + + + [...] this encounter Miscellaneous Notes Telephone Encounter - Venita Partida - 10/07/2013 3:50 PM PDTThis patient states that kierra mares just picked up [address] Lu had prescribed, but the doctor thalia felton on the prescriptions is Luz Bruno. Please call back because she had taken one of the prescriptions already. Tdocumented in this encounter Plan of Treatment +--------+---------+ + + + | Date | Type | Specialty | Care Team | Description | +--------+---------+ + + + | 03/06/ | Office | Rheumatology | Santosh Sumner, | | | 2019 | Visit | | [address] | | | | | | [address] | | | | | | [place] [address] | | | | | | [phone] | | | | | | | | +--------+---------+ + + + documented as of this encounter Visit Diagnoses Not on filedocumented in this encounter"
--- OUTSIDE RECORDS SUMMARY | ~2019-12-28 | XMS | Encounter Summary ---
Demographics + + + | Address | [address] | | | [place] [address] | + + + | Home Phone [...] [place] | | | | | [address] | | + + + + + Care Team Providers + +------+ + | Care Silver Steward Name | Role | Phone | + +------+ + | Davis Ivan MD | PCP | | + +------+ + Encounter Details +--------+ + + + + | Date | Type | Department | Care Team | Description | +--------+ + + + + | 10/18/ | Hospital | [facility] | Offenstein, | Cough | | 2015 | Encounter | MED CTR XRAY [address] | MD Raoul Sahni, | | | | | [address] | [address] | | | | | [place] [address] | | | | | | [phone] | | | +--------+ + + + [...] | 2019 | Visit | | [address] | | | | | | [facility] | | | | | | [place] [address] | | | | | | [phone] | | | | | | | [...] | Procedure Note | + + | Faibán, Rad Results In - 10/18/2014 12:51 PM [...]
--- OUTSIDE RECORDS SUMMARY | ~2019-12-28 | XMS | Encounter Summary ---
Demographics + + + | Address | [address] | | | [place] [address] | + + + | Home Phone [...] [place] | | | | | [address] | | + + + + + Care Team Providers + +------+ + | Care Writer Producer Name | Role | Phone | [...] Malignant | Jimmy C, DO | [address] | | | | | neoplasm of | [address] | [place], | | | | | lower lobe | [address] | [place] [address] | | | | | of right | [place], | Phone: | | | | | lung (HCC) | [place] [address] | [phone] | | | | | Procedures | Phone: | Fax: | | | | | CT Chest w | [phone] | [phone] | | | | | Contrast | Fax: | | | | | | | [phone] | | +--------+--------+ + + + + [...] Malignant | Jimmy C, DO | [address] | | | | | neoplasm of | [address] | [place], | | | | | lower lobe | [address] | [place] [address] | | | | | of right | [place], | Phone: | | | | | lung (HCC) | [place] [address] | [phone] | | | | | Procedures | Phone: | Fax: | | | | | CT Chest w | [phone] | [phone] | | | | | Contrast | Fax: | | | | | | | [phone] | | +--------+--------+ + + + + Encounter Details +--------+ + + + + | Date | Type | Department | Care Team | Description | +--------+ + + + + | 03/28/ | Hospital | [facility] | Jimmy Bnaegas DO | Malignant neoplasm | | 2015 | Encounter | MED CTR [address] | [address] | of lower lobe of | | | | [address] [place], | [place], [place] | right lung (HCC) | | | | [place] [address] | [address] | | | | | [phone] | | | +--------+ + + + [...] | 2020 | Visit | | [address] | | | | | | [facility] | | | | | | [place] [address] | | | | | | [phone] | | | | | | | [...] June 08, 2014 (from [facility]), and | | June 09, [...]
--- OUTSIDE RECORDS SUMMARY | ~2019-12-28 | XMS | Encounter Summary ---
Demographics + + + | Address | [address] | | | [place] [address] | + + + | Home Phone [...] [place] | | | | | [address] | | + + + + + Care Team Providers + +------+ + | Care Auto Body Estimator Name | Role | Phone | + +------+ + | Davis Ivan MD | PCP | | + +------+ + Encounter Details +--------+ + + + + | Date | Type | Department | Care Team | Description | +--------+ + + + + | 07/27/ | Hospital | [facility] | [facility], | | | 2014 | Encounter | MED CTR SLEEP | Ayana Looney MD | | | | | [place] [address] | | | | | | [place] | | | | | | [address] | | | | | | [phone] | | | +--------+ + + + [...] | 2019 | Visit | | [address] | | | | | | [facility] [facility] | | | | | | [place] [address] | | | | | | [phone] | | | | | | | | +--------+---------+ + + + documented as of this encounter Visit Diagnoses Not on filedocumented in this encounter"
--- OUTSIDE RECORDS SUMMARY | ~2019-12-28 | XMS | Encounter Summary ---
Demographics + + + | Address | [address] | | | [place] [address] | + + + | Home Phone [...] [place] | | | | | [address] | | + + + + + Care Team Providers + +------+ + | Care Hotel Guest Service Agent Name | Role | Phone | [...] + + | 04/17/ | Office | [facility] | [place]enstein, | COPD (chronic | | 2013 | Visit | PULMONARY [address] | Ayana Looney MD | obstructive | | | | [place], | | pulmonary disease) | | | | [place] [address] | | (Primary Dx); MAR[place] | | | | [phone] | | (obstructive sleep | | | [...] an overnight oxy gen test through [facility]. Call the [email or web address] before you pick it up to make sure they have a box available. You will pick up and delivery driver a box at the [email or web address]. Do the t est on room air. [...] hospitalized 5 days Rheumatoid arthritis(714.0) ([facility]) on prednisone and methotrexate, Dr. 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 Respiratory Therapy Supplies Rollbar Respironics autotitrating CPAP at 5-9 cm H2O for life time. Mask, headgear, chin strap, hoses, humidifier chamber and filters. Dx: 327.23 1 each 0 Respiratory Therapy Supplies ApoVaxC ResMed S9 auto CPAP 5-9 cm H2O. [...] made to ensure accuracy; however, inadvertent computerized acquisitions librarian errors may be pre sent. documented in t his encounter Plan of Treatment +--------+---------+ + + + | Date | Type | Specialty | Care Team | Description | +--------+---------+ + + + | 03/06/ | Office | Rheumatology | Santosh Sumner, | | | 2019 | Visit | | [address] | | | | | | [facility] | | | | | | [place] [address] | | | | | | [phone] | | | | | | | [...]
--- OUTSIDE RECORDS SUMMARY | ~2019-12-28 | XMS | Encounter Summary ---
Demographics + + + | Address | [address] | | | [place] [address] | + + + | Home Phone [...] [place] | | | | | [address] | | + + + + + Care Team Providers + +------+ + | Care Polysomnographer Name | Role | Phone | + +------+ + | Davis Ivan MD | PCP | | + +------+ + Reason for Visit + +--------+ + | Reason | Onset | Comments | | | Date | | + +--------+ + | Medication Refill | 08/04/ | | | | 2016 | | + +--------+ + Encounter Details +--------+--------+ + + + | Date | Type | Department | Care Team | Description | +--------+--------+ + + + | 08/04/ | Refill | [facility] | Gurmeet Vargas, | Medication Refill | | 2016 | | PULMONARY [address] | [address] | | | | | [place], | [place] [address] | | | | | [place] [address] | [phone] | | | | | [phone] | | | +--------+--------+ + + + [...] | 2020 | Visit | | [address] | | | | | | [place] | | | | | | [place] [address] | | | | | | [phone] | | | | | | | | +--------+---------+ + + + documented as of this encounter Visit Diagnoses + + | Diagnosis | + + | Chronic obstructive pulmonary disease, unspecified COPD type (HCC) - Primary | + + documented in this encounter"
--- OUTSIDE RECORDS SUMMARY | ~2019-12-28 | XMS | Encounter Summary ---
Demographics + + + | Address | [address] | | | [place] [address] | + + + | Home Phone [...] [place] | | | | | [address] | | + + + + + Care Team Providers + +------+ + | Care Graduate Teacher Education Name | Role | Phone | + [...] + + | 11/06/ | Office | [facility] | Gurmeet Vargas, | Centrilobular | | 2017 | Visit | PULMONARY [address] | [address] | emphysema (HCC) | | | | [place], | [place] [address] | (Primary Dx); | | | | [place] [address] | [phone] | Metastatic primary | | | | [phone] | | lung cancer, | | | | [...] Gurmeet Vargas MD - 11/06/2016 2:40 PM [id number] ex-smoker with metastatic lung cancer in remission [...] also tells me that her surgeon in [place] once to fix a pelvic hernia and [...] 15 minutes, at least half in counseling. [employer] Word processing was used, and I a pologize for any uncorrected mistakes. Gurmeet Vargas M.D. Pulmonary critical documented i n this encounter Plan of Treatment +--------+---------+ + + + | Date | Type | Specialty | Care Team | Description | +--------+---------+ + + + | 03/06/ | Office | Rheumatology | Santosh Sumner, | | | 2019 | Visit | | [address] | | | | | | [facility] | | | | | | [place] [address] | | | | | | [phone] | | | | | | | | +--------+---------+ + + + documented as of this encounter Visit Diagnoses + + | Diagnosis | + + | Centrilobular emphysema (HCC) - Primary | + + | Metastatic primary lung cancer, unspecified laterality (HCC) | + + documented in this encounter
--- OUTSIDE RECORDS SUMMARY | ~2019-12-28 | XMS | Encounter Summary ---
Demographics + + + | Address | [address] | | | [place] [address] | + + + | Home Phone [...] [place] | | | | | [address] | | + + + + + Care Team Providers + +------+ + | Care Assembler Arranger Name | Role | Phone | + +------+ + | Davis Ivan MD | PCP | | + +------+ + Encounter Details +--------+ + + + + | Date | Type | Department | Care Team | Description | +--------+ + + + + | 03/17/ | Hospital | [facility] | Conversion | | | 2014 | Encounter | [facility] XRAY | Transaction, | | | | | [address] | Provider Unknown | | | | | [facility] [place] | | | | | | [address] | (Fax) | | | | | [phone] | | | +--------+ + + + [...] | 2019 | Visit | | [address] | | | | | | [place] | | | | | | [place] [address] | | | | | | [phone] | | | | | | | | +--------+---------+ + + + documented as of this encounter Visit Diagnoses Not on filedocumented in this encounter"
--- OUTSIDE RECORDS SUMMARY | ~2019-12-28 | XMS | Encounter Summary ---
Demographics + + + | Address | [address] | | | [place] [address] | + + + | Home Phone [...] [place] | | | | | [address] | | + + + + + Care Team Providers + +------+ + | Care National Accounts Sales Name | Role | Phone | [...] | | | | | | [place] [address] | | | | | | [phone] | | | +--------+ + + + [...] | 2019 | Visit | | [address] | | | | | | [place] [facility] | | | | | | [place] [address] | | | | | | [phone] | | | | | | | | +--------+---------+ + + + documented as of this encounter Visit Diagnoses Not on filedocumented in this encounter"
--- OUTSIDE RECORDS SUMMARY | ~2019-12-28 | XMS | Encounter Summary ---
Demographics + + + | Address | [address] | | | [place] [address] | + + + | Home Phone [...] + + + + + | Jewel Aezvedo | ECON | [address] | | | | | [place] | | | | | [address] | | + + + + + Care Team Providers + +------+ + | Care Leaf Fat Scraper Name | Role | Phone | + [...] + + | 08/15/ | Hospital | [facility] | Adelita Lu MD | Recurrent squamous | | 2015 | Encounter | MED CTR CHEMO | Need updated | cell carcinoma of | | | | [facility] [address] | address | lung, unspecified | | | | [place], | | laterality (HCC); | | | | [place] [address] | | Pulmonary nodules | | | | [phone] | | | +--------+ + + + [...] (AVS) provided. documented in thi s encounter Miscellaneous Notes Addendum Note - Liseth Frausto RN - 08/15/2014 3:36 PM PDTEncounter addended by: Lopez Frausto RN on: 08/15/2014 15:36
Documentation filed: Charges VNElectronically sig angel by Liseth Frausto RN at 08/15/2014 3:36 PM PDTdocumented in this encounter Plan of Treatment +--------+---------+ + + + | Date | Type | Specialty | Care Team | Description | +--------+---------+ + + + | 03/06/ | Office | Rheumatology | Santosh Sumner, | | | 2019 | Visit | | [address] | | | | | | [facility] | | | | | | [place] [address] | | | | | | [phone] | | | | | | | [...] + + + | White Blood | 6.9 | 4.0 - 11.0 K/uL | [facility] | | | Cells | | | [facility] | | | | | | MEDICAL | | | | | | CENTER - | | | | | | LABORATORY | | + + + + + + | Red Blood | 3.88 | 3.70 - 5.20 | [facility] | | | Cells | | M/uL | [facility] | | [...] | 0.10 | 0.00 - 0.10 | [facility] | [...] [address] | [place] | [phone] | | [facility] | | [address] | | | - LABORATORY | | | | + + + + + | [facility] | [address] | [place] | | | [facility] | | [address], [facility] | | | - LABORATORY | [...] mL/min/1.73m2 | [facility] | | | [place] | RATE,ESTIMATED | | MEDICAL | | | | mL/min/1.87q2Iumy than | | CENTER - | | [...] | 8.6 | 8.3 - 10.5 | [facility] | | | | | mg/dL | [facility] | | | | | | MEDICAL | | | | | | CENTER - | | | | | | LABORATORY | | + + + + + + | Albumin | 3.0 (L) | 3.2 - 5.0 g/dL | [facility] | | | | | | [facility] [...] [address] | [place] | [phone] | | [facility] | | [address] | | | - LABORATORY | | | | + + + + + | [facility] | [address] | [place], [place] | | | [facility] | | [address], [facility] | | | - LABORATORY | [...] | | | | | Intravenous, ONCE, 08/15/14 at | | AM PDT | | [...]
--- OUTSIDE RECORDS SUMMARY | ~2019-12-28 | XMS | Encounter Summary ---
Demographics + + + | Address | [address] | | | [place] [address] | + + + | Home Phone [...] [place] | | | | | [address] | | + + + + + Care Team Providers + +------+ + | Care Flat Folding Machine Operator Name | Role | Phone | + +------+ + | Caitlin Chino MD | PCP | | + +------+ + Reason for Visit +--------+--------+ + | Reason | Onset | Comments | | | Date | | +--------+--------+ + | Other | 06/20/ | budesonide | | | 2019 | | +--------+--------+ + Encounter Details +--------+ + + + + | Date | Type | Department | Care Team | Description | +--------+ + + + + | 06/20/ | Telephone | [facility] | Eveline Jaffe | Cyndy (budesonide) | | 2019 | | PULMONARY [address] | MD Raul [address] | | | | | [place], | [address] [place] | | | | | [place] [address] | [place] [address] | | | | | [phone] | [phone] | | | | | | | [...] Telephone Encounter - Sara Evans RN - 06/20/2019 2:21 PM Anna Marie called stating t hat the prescription for the budesonide was not at [facility]. Confirmed with the pharmacy. Re sent. kim in t his encounter Plan of Treatment +--------+---------+ + + + | Date | Type | Specialty | Care Team | Description | +--------+---------+ + + + | 03/06/ | Office | Rheumatology | Santosh Sumner, | | | 2019 | Visit | | [address] | | | | | | [place] | | | | | | [place] [address] | | | | | | [phone] | | | | | | | | +--------+---------+ + + + documented as of this encounter Visit Diagnoses Not on filedocumented in this encounter"
--- OUTSIDE RECORDS SUMMARY | ~2019-12-28 | XMS | Encounter Summary ---
Demographics + + + | Address | [address] | | | [place] [address] | + + + | Home Phone [...] [place] | | | | | [address] | | + + + + + Care Team Providers + +------+ + | Care Electroencephalograph Technologist Name | Role | Phone | [...] + + | 09/01/ | Hospital | [facility] | Kaden Rock | Acute infective | | 2018 - | Encounter | [facility] | MD German [address] | exacerbation of | | | | [address] | [address] [place] | chronic obstructive | | 09/04/ | | [place] [address] | [place] [address] | airway disease | | 2019 | | [phone] | [phone] | (HCC); | | | | | [...] | | | | | | infectious organism; | | | | | | COPD exacerbation | | | | | | (HCC); History of | | | | | | pulmonary embolism; | | | | | | Squamous cell | | | | | | carcinoma of right | | | | | | lung (HCC); Anxiety; | | | | | | Depression, | | | | | | [...] , Hypothyroidism and GERd, recent admission at [facility] for COPD exacerbation/Hypoxia, treated with [...] lower lobe (appear denser than CXR at [facility] . Pt also had CT [...] aorta and coronary arteries. The implanted left research program intern al jugular port catheter again terminates [...] of this encounter Progress Notes Chen Jackman I, ZEV - 09/04/2018 2:50 PM PDTDischarge patient to home. Discharge instructio ns giving in writing and verbally to patient and . Reviewed next appointments with jessica keenan. Questions answered and education giving. They verbalized understanding. MIXING AND MOLDING MACHINE OPERATOR wheel delgado alannt out to the car. Bunny Rojas, PharmD - 09/04/2018 6:58 AM PDT WARFARIN PER PHARMACY PROTOCOL: Subjective/Objective: Thea Carmona is a 73 y.o. female admitted on 09/01/18 for HAP and is receiving warfa rin pt a for h.o PE. Patient has a past medical history of Acid reflux disease; Arthritis; COPD (chronic obstructive pulmonary disease) ([facility]); Depression; HONG (dyspnea on exertion); F ull dentures; GERD (gastroesophageal reflux disease); Hyperlipidemia; Hypertension; Hypothyr oidism; Obesity; MARCE (obstructive sleep apnea); Osteoporosis; Pneumonia (2008); Recurrent sq uamous cell carcinoma of lung ([facility]) (07/11/2014); Rheumatoid arthritis(714.0); Spinal stenosi s; Spondylolisthesis of cervical region; Sputum culture positive for Scopulariopsis species; Squamous cell carcinoma of lung ([facility]) (07/2013); Stroke ([facility]) (2006); Stroke ([facility]) (2007); a nd Upper GI [...] am: INR 4. 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 5. Pharmacist to follow daily Warfarin Dosing Nomogram Per P&T-approved Electronically signed by: Bunny Cruz PharmD 09/04/2018 7:27 Teri Craig MD - 09/03/2018 1:37 PM PDT HOSPITALIST PROGRESS NOTE Patient: Thea Carmona : 1945: Age: 73 y.o. MedRec: [id number] PCP: Caitlin Chino MD Admission date: 09/01/2018 [...] H ypothyroidism and GERd, recent admission at [facility] for COPD exacerbation/Hypoxia, sathya ated [...] lower lobe (appear denser than CXR at [facility]. Pt also had CT abdomen/pelvis [...] Pulse: 79 76 75 75 Resp: 18 22 Temp: 36.5 C (97.7 F) 36.5 [...] 299 (H) 120 - 246 U/L 1,3 [id number] Collection Time: 09/01/18 19:28 Result Value Ref [...] disease; Arthritis; COPD (chronic obstructive pulmonary disease) ([facility]); Depression; HONG (dyspnea on exertion); F ull dentures; GERD (gastroesophageal reflux disease); Hyperlipidemia; Hypertension; Hypothyr oidism; Obesity; MARCE (obstructive sleep apnea); Osteoporosis; Pneumonia (2008); Recurrent sq uamous cell carcinoma of lung (HCC) (07/11/2014); Rheumatoid arthritis(714.0); Spinal stenosi s; Spondylolisthesis of cervical region; Sputum culture positive for Scopulariopsis species; Squamous cell carcinoma of lung (HCC) (07/2013); Stroke (HCC) (2006); Stroke (HCC) (2007); a nd Upper GI bleed (06/2014). [...] am: INR 4. 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 5. Pharmacist to follow daily Warfarin Dosing Nomogram Per P&T-approved Electronically signed by: Bree Galeas, PharmDawna 09/03/2018 9:09 Hugo Boogie PharmD - 09/02/2018 [...] Arthr itis; COPD (chronic obstructive pulmonary disease) ([facility]); Depression; HONG (dyspnea on exerti on); Full dentures; GERD (gastroesophageal reflux disease); Hyperlipidemia; Hypertension; Hy pothyroidism; Obesity; MARCE (obstructive sleep apnea); Osteoporosis; Pneumonia (2008); Recurr ent squamous cell carcinoma of lung ([facility]) (07/11/2014); Rheumatoid arthritis(714.0); Spinal s tenosis; Spondylolisthesis of cervical region; Sputum culture positive for Scopulariopsis sp ecies; Squamous cell carcinoma of lung ([facility]) (07/2013); Stroke ([facility]) (2006); Stroke ([facility]) (18 01); and Upper GI [...] and was admitted for August 17 to [place] [address] at [facility] in [place]. We've requested those notes and they were [...] I learned from the patient and her car repairer apprentice Mirza and the discharge summary from July [...] was admitted August 17, 2018 to [facility] in [place]. Antimicrobials - Current Antibiotic Dates of Therapy vanco 4/3 zosyn 4/3 bactrim 4/3 Antimicrobials - Discontinued Antibiotic Dates of Therapy Historical Vancomycin dosing (previous & current encounter): vanco 1g q24h Micro/Cultures/Diagnostics: Microbiology Results (Last 14 Days by Collected Date with Culture/Sensitivity) Procedure Component Value Units Date/Time Culture, MRSA [[id number]] Collected: 09/01/182045 Order Status: Sent Lab Status: In process Updated: 09/01/182045 Specimen: Tissue from Nares Culture, Blood [[id number]] (Normal) Collected: 09/01/181926 Order Status: Completed Lab Status: Preliminary result Updated: 09/02/18 0741 Specimen: Blood Culture No growth: Monitored continually by instrument for 5 days Culture, Blood [[id number]] (Normal) Collected: 09/01/181926 Order Status: Completed Lab Status: Preliminary result Updated: 09/02/18 0741 Specimen: Blood Culture No growth: Monitored continually by instrument for 5 days Respiratory pathogen panel, NAAT [[id number]] Order Status: Sent Lab Status: No result Specimen: Tissue from Nasopharynx Pneumocystis Jiroveci Ag, Immunofluorescent [[id number]] Collected: 09/01/18 1608 Order Status: Sent Lab Status: In process Updated: 09/01/18 1608 Specimen: Body Fluid from Sputum, Expectorated Culture, Respiratory, Lower, Smear [[id number]] Collected: 09/01/18 1555 Order Status: Completed Lab [...] BP: (113-145)/(59-74) 135/67 Recent Labs Lab 09/02/18 19409/02/1830909/01/18 192 WBC -- 10.3 10.7 CREA -- 0.92 0.91 VANCORANDOM 16.0 -- -- PROCALCITONI -- -- <0.05 Imaging: Report still pending for chest xray Date 09/01 09/02 Time of Vancomycin draw -- 190 Vancomycin result -- 16.0 LEVEL or TROUGH [...] Carmona : 1945: Age: 73 y.o. MedRec: [id number] PCP: Caitlin Chino MD Admission date: 09/01/2018 [...] H ypothyroidism and GERd, recent admission at [facility] for COPD exacerbation/Hypoxia, sathya ated [...] lower lobe (appear denser than CXR at [facility]. Pt also had CT abdomen/pelvis [...] appear stable. Dictated an d Signed by: Alxe Huddleston MD Electronically signed: 09/01/2018 4:45 PM [...] Discharge in 2-4 days. Discussed with patient Jackiegarland Rodriguez 09/02/2018 16:51 Bunny Ayala, PharmD - 09/02/2018 10:52 AM PDTFormatting of this note might be different from the origina l. VANCOMYCIN PER PHARMACY PROTOCOL: AMS/Drug Name - vanco and dolores Patient: Thea Carmona [id number] Admit: 09/01/2018 17:50 RELEVANT ALLERGIES: none relavent 73 yrs old female patient admitted on 09/01/2018 for HCAP Patient is receiving vancomycin s tarting on 09/01/18 for HAP. Patient has a past medical history of Acid reflux disease; Arthr itis; COPD (chronic obstructive pulmonary disease) ([facility]); Depression; HONG (dyspnea on exerti on); Full dentures; GERD (gastroesophageal reflux disease); Hyperlipidemia; Hypertension; Hy pothyroidism; Obesity; MARCE (obstructive sleep apnea); Osteoporosis; Pneumonia (2008); Recurr ent squamous cell carcinoma of lung ([facility]) (07/11/2014); Rheumatoid arthritis(714.0); Spinal s tenosis; Spondylolisthesis of cervical region; Sputum culture positive for Scopulariopsis sp ecies; Squamous cell carcinoma of lung ([facility]) (07/2013); Stroke ([facility]) (2006); Stroke (HCC) (18 01); and Upper [...] and was admitted for August 17 to [facility] at [facility] in [place]. We've requested those notes and they were [...] I learned from the patient and her car repairer apprentice Mirza and the discharge summary from July [...] was admitted August 17, 2018 to [facility] in [place]. Antimicrobials - Current Antibiotic Dates of Therapy vanco 4/3 zosyn 4/3 bactrim 4/3 Antimicrobials - Discontinued Antibiotic Dates of Therapy Historical Vancomycin dosing (previous & current encounter): vanco 1g q24h Micro/Cultures/Diagnostics: Microbiology Results (Last 14 Days by Collected Date with Culture/Sensitivity) Procedure Component Value Units Date/Time Culture, MRSA [[id number]] Collected: 09/01/182045 Order Status: Sent Lab Status: In process Updated: 09/01/182045 Specimen: Tissue from Nares Culture, Blood [[id number]] (Normal) Collected: 09/01/181926 Order Status: Completed Lab Status: Preliminary result Updated: 09/02/18740 Specimen: Blood Culture No growth: Monitored continually by instrument for 5 days Culture, Blood [[id number]] (Normal) Collected: 09/01/181926 Order Status: Completed Lab Status: Preliminary result Updated: 09/02/18740 Specimen: Blood Culture No growth: Monitored continually by instrument for 5 days Respiratory pathogen panel, NAAT [[id number]] Order Status: Sent Lab Status: No result Specimen: Tissue from Nasopharynx Pneumocystis Jiroveci Ag, Immunofluorescent [[id number]] Collected: 09/01/18 160 Order Status: Sent Lab Status: In process Updated: 09/01/181607 Specimen: Body Fluid from Sputum, Expectorated Culture, Respiratory, Lower, Smear [[id number]] Collected: 09/01/18 1555 Order Status: Sent Lab [...] (113-149)/(67-86) 113/74 Recent Labs Lab 09/02/18 0310 09/01/181927 WBC 10.3 10.7 CREA 0.92 0.91 PROCALCITONI [...] disease; Arthritis; COPD (chronic obstructive pulmonary disease) (HCC); Depression; HONG (dyspnea on exertion); Full dentures; GERD (gastroesophageal reflux disease); Hyperlipidemia; Hypertension; Hypothyroidism; Obesi ty; MARCE (obstructive sleep apnea); Osteoporosis; Pneumonia (2008); Recurrent squamous cell c arcinoma of lung (HCC) (07/11/2014); Rheumatoid arthritis(714.0); Spinal stenosis; Spondyloli sthesis of cervical region; Sputum culture positive for Scopulariopsis species; Squamous marilou l carcinoma of lung (HCC) (07/2013); Stroke (HCC) (2006); Stroke (HCC) (2007); and Upper GI b leed (06/2014). [...] Nomogram Per P&T-approved Electronically signed by: Bunny Cruz, PharmDawna 09/02/2018 10:44 Hugo Boogie PharmD - 09/01/2018 9:56 PM PDTF ormatting of this note might be different from the original. WARFARIN PER PHARMACY PROTOCOL: Subjective/Objective: Thea Carmona is a 73 y.o. female admitted on @ADMITDT@ for HAP and is receiving wa rfarin. Patient has a past medical history of Acid reflux disease; Arthritis; COPD (chronic obstructive pulmonary disease) ([facility]); Depression; HONG (dyspnea on exertion); Full dentures; GERD (gastroesophageal reflux disease); Hyperlipidemia; Hypertension; Hypothyroidism; Obesi ty; MARCE (obstructive sleep apnea); Osteoporosis; Pneumonia (2008); Recurrent squamous cell c arcinoma of lung ([facility]) (07/11/2014); Rheumatoid arthritis(714.0); Spinal stenosis; Spondyloli sthesis of cervical region; Sputum culture positive for Scopulariopsis species; Squamous marilou l carcinoma of lung ([facility]) (07/2013); Stroke ([facility]) (2006); Stroke ([facility]) (2007); and Upper GI b [...] Arthr itis; COPD (chronic obstructive pulmonary disease) ([facility]); Depression; HONG (dyspnea on exerti on); Full dentures; GERD (gastroesophageal reflux disease); Hyperlipidemia; Hypertension; Hy pothyroidism; Obesity; MARCE (obstructive sleep apnea); Osteoporosis; Pneumonia (2008); Recurr ent squamous cell carcinoma of lung ([facility]) (07/11/2014); Rheumatoid arthritis(714.0); Spinal s tenosis; Spondylolisthesis of cervical region; Sputum culture positive for Scopulariopsis sp ecies; Squamous cell carcinoma of lung ([facility]) (07/2013); Stroke ([facility]) (2006); Stroke ([facility]) (18 01); and Upper GI [...] and was admitted for August 17 to [facility] at [facility] in [place]. We've requested those notes and they were fax ed here. I also requested her imaging from that admission and we were able to see a CT scan of the abdomen and pelvis which included lower lung, and a chest x-ray from August 18. Toda y's chest x-ray when compared to October 22, 2017 showed more density in the right lower lung fi eld and obliteration of the crisp outlines of blood vessels which were seen crisply in 2018. I learned from the patient and her car repairer apprentice Mirza and the discharge summary from July [...] was admitted August 17, 2018 to [facility] in [place]. Antimicrobials - Current Antibiotic Dates of Therapy vanco 4/3 zosyn 4/3 bactrim 4/3 Antimicrobials - Discontinued Antibiotic Dates of Therapy Historical Vancomycin dosing (previous & current encounter): vanco 1g q24h Micro/Cultures/Diagnostics: Microbiology Results (Last 14 Days by Collected Date with Culture/Sensitivity) Procedure Component Value Units Date/Time Culture, MRSA [[id number]] Collected: 09/01/182045 Order Status: Sent Lab Status: In process Updated: 09/01/182045 Specimen: Tissue from Nares Culture, Blood [[id number]] Collected: 09/01/181926 Order Status: Sent Lab Status: In process Updated: 09/01/181931 Specimen: Blood Culture, Blood [[id number]] Collected: 09/01/181926 Order Status: Sent Lab Status: In process Updated: 09/01/181931 Specimen: Blood Respiratory pathogen panel, NAAT [[id number]] Order Status: Sent Lab Status: No result Specimen: Tissue from Nasopharynx Pneumocystis Jiroveci Ag, Immunofluorescent [[id number]] Collected: 09/01/18 1608 Order Status: Sent Lab Status: In process Updated: 09/01/18 160 Specimen: Body Fluid from Sputum, Expectorated Culture, Respiratory, Lower, Smear [[id number]] Collected: 09/01/18 1555 Order Status: Sent Lab Status: In process Updated: 09/01/18 160 Specimen: Body Fluid from Sputum, Expectorated Relevant [...] 20 BP: (145-149)/(67-86) 145/67 Recent Labs Lab 09/01/18 1928 WBC 10.7 CREA 0.91 PROCALCITONI <0.05 Imaging: [...] PharmD 09/01/2018 22:07 documented in this encounter H&P Notes Kaden Rock MD - 09/01/2018 11:50 PM PDTFormatting of this note might be differen t from the original. [facility] HOSPITALIST HISTORY & PHYSICAL Patient: Thea Carmona : 1945: Age: 73 y.o. MedRec: [id number] Admission date: 09/01/2018 Hospital day # : 0 Physician author: Kaden Rock MD Today: 09/01/2018 CHIEF COMPLAINT: Tachypnea, respiratory distress HISTORY OF PRESENT ILLNESS: This is a 73 y.o. female with a history of locally recurrent and regionally metastatic squa mous cell lung cancer (s/p chemo/radiation, right lower lobectomy, in remission on Afatinib 30 mg, followed by Dr Park) COPD, RA (on MTX and Prednisone), Anxiety/Depression, h/o PE, HLD, Hypothyroidism and GERd, recent admission at [facility] for COPD exacerbation/H ypoxia, treated with nebs and IV steroids, no abx. Discharged 08/22 on steroid taper (60 mg X 3 days, 40 mg X 3 days), symptoms worsening since discharge with tachypnea and SOB. Pt saw PCP 08/30 and her prednisone taper was prolonged (currenltly on 3rd day of 40 mg X 5 days and so on). Pt was seen by Dr. Gurmeet Vargas in clinic and was directly admitted for RLL PNA. CXR today showed hazy opacities in right mid to lower lobe (appear denser than CXR at [facility]. Pt also had CT abdomen/pelvis at [facility] for rectal sheath hematoma which show ed nodular opacities in right lower lobe. Given immunocompromised state, Dr. Vargas concer angel for PCP PNA. Pt currently reports productive cough with greenish sputum. No fever/chills . No Sick contacts. PAST MEDICAL and SURGICAL HISTORY: Past Medical History: Diagnosis Date Acid [...] Rheumatoid arthritis(714.0) [facility] Sp[facility] stenosis has tried cortisone injections Spondylolisthesis of cervical region Sputum culture positive for Scopulariopsis species Squamous cell carcinoma of lung (HCC) 07/2013 right lower lobe Stroke (HCC) 2007 Stroke (HCC) 2008 Upper GI bleed 06/[address] [facility] Past Surgical History: Procedure Laterality Date BACK SURGERY 03/2014 BLADDER SUSPENSION BRONCHOSCOPY 07/11/2014 EBUS with right hilar LN biopsy, [facility] Dr. Sierra CERVICAL SPINE SURGERY 2012 CHOLECYSTECTOMY COLONOSCOPY 06/2014 ENDOSCOPY HAND ARTHROPLASTY Left 03/20/2015 Procedure: Left 1st C.M.C. Arthroplasty; Surgeon: Giuliano Padilla MD; Location: [facility] MAIN OR HAND ARTHROPLASTY Right 10/27/2017 Procedure: Right 1st CMC Arthroplasty; Surgeon: Giuliano Padilla MD; Location: [facility] MAIN O R HYSTERECTOMY LOBECTOMY 09/16/13 right lower lobe LUNG BIOPSY 07/21/13 right lower lobe SHOULDER SURGERY SHOULDER SURGERY right shoulder THUMB SURGERY TONGUE SURGERY benign per pt TUNNELED VENOUS PORT PLACEMENT N/A 07/28/2014 Procedure: Port Placement; Surgeon: Chalino Chiu MD; Location: [facility] MAIN OR FAMILY HISTORY: family history includes Alcohol abuse in her brother; COPD in her sister; Cancer in her fat her; Lung cancer in her brother; Tobacco Use in her brother and sister. SOCIAL HISTORY: reports that she quit smoking about 2 years ago. Her smoking use included Cigarettes. She started smoking about 67 years ago. She has a 50.00 pack-year smoking history. She has never used smokeless tobacco. She reports that she does not drink alcohol or use drugs. REVIEW OF SYSTEMS: A complete 10 system ROS was done, negative except above HOME MEDICATIONS: PT REPORTED TAKING NOT TAKING Medication Sig Last Dose Dispense Doc. Provider afatinib (GILOTRIF) 30 mg tablet Take 30 mg by mouth every morning (before breakfast). H istorical Provider, albuterol-ipratropium (DUONEB) 2.5-0.5 mg/3 mL SOLN Take 3 mLs by nebulization 4 times marlen ly. CASIE: 12 months Dx: J44.9 360 mL Gurmeet Vargas MD BREO ELLIPTA 100-25 MCG/INH inhaler Inhale 1 puff into the lungs Daily. Historical Cori montaño MD cholecalciferol (VITAMIN D-3) 1,000 units capsule Take 2,000 Units by mouth Daily. Histo rical ProviderMD cyclobenzaprine (FLEXERIL) 10 mg tablet Take 10 mg by mouth. Historical Provider, folic acid 1 mg tablet Historical ProviderMD furosemide (LASIX) 20 mg tablet Take 20 mg by mouth Daily. Historical Provider, GUAIATUSSIN AC 100-10 MG/5ML syrup Take 5 mLs by mouth Daily as needed. Historical Cori montaño MD HYDROcodone-acetaminophen (NORCO) 5-325 mg per tablet Take 1 tablet by mouth Daily as need ed. Historical Provider, hydrocortisone 2.5% cream Apply 1 Application topically 2 times daily. Historical Provid erMD levothyroxine (SYNTHROID, LEVOTHROID) 125 mcg tablet Take 125 mcg by mouth every morning ( before breakfast). Historical Provider, loperamide (IMODIUM) 2 mg capsule Take 2 mg by mouth as needed. Historical Provider, methotrexate 2.5 MG tablet take 6 tablets by mouth every week Historical ProviderMD mirtazapine (REMERON) 15 MG tablet Take 15 mg by mouth nightly. Historical Provider, NARCAN 4 MG/0.1ML instill 1 spray in 1 NOSTRIL if needed for opioid overdose may re... (R EFER TO PRESCRIPTION NOTES). Historical ProviderMD oxyCODONE (ROXICODONE) 5 mg tablet Take 5 mg by mouth Daily as needed. Historical Provid erMD pantoprazole (PROTONIX) 40 mg tablet Take 40 mg by mouth 2 times daily (before meals). H istorical ProviderMD potassium chloride (K-DUR) 20 mEq ER tablet Take 20 mEq by mouth Daily. Historical Cori montaño MD predniSONE (DELTASONE) 5 mg tablet take 2 tablets by mouth every morning using 40 now then cutting back Historical ProviderMD raNITIdine (ZANTAC) 300 MG tablet take 1 tablet by mouth twice a day Historical Provider , Respiratory Therapy Supplies (NEBULIZER COMPRESSOR) KIT Use as directed with nebulizer med [facility]. Dx: J43.1 CASIE: 99 months 1 each Ayana Taylor MD roflumilast (DALIRESP) 500 mcg tablet Take 1 tablet by mouth. Historical Provider, simvastatin (ZOCOR) 40 mg tablet Take 40 mg by mouth nightly. Historical Provider, tiotropium (SPIRIVA) 18 mcg inhalation capsule Inhale 18 mcg into the lungs Daily. Histo rical Provider, venlafaxine (EFFEXOR XR) 75 mg 24 hr tablet take 1 tablet by mouth every morning AT [facility] TIME EACH DAY WITH FOOD Historical Provider, warfarin (COUMADIN) 5 mg tablet Take 5 mg by mouth Daily. 5MG 3 times weekly and 4 1/2 tab let other days. Historical Provider, ALLERGIES: Allergies Allergen Reactions Trazodone Hives Mirtazapine Other (See Comments) VITAL SIGNS: Temp: 36.4 C (97.5 F), Pulse: 96, Resp: 20, BP: 145/67, SpO2 94 % on room air at flow r ate L/min Temp Min: 36.4 C (97.5 F) Max: 36.9 C (98.4 F) Weight: 71.8 kg (158 lb 4.6 oz) PHYSICAL EXAMINATION: GA: in mild respiratory distress, AAOX3 HEENT: EOMI, MMM Neck: no JVD Cardiac: rrr, no m/g/r Lung: faint b/l wheezing and prolonged expiratory phase, (R>L), normal respiratory effort Abdomen: soft, nt/nd, nabs Ext: 2+ LE ankle swelling Pych: normal mood and affect Neuro: police guard grossly intact, no focal weakness or sensory deficits DIAGNOSTIC STUDIES: Lab results last 24 hours Recent Results (from the past 24 hour(s)) CBC with Differential Collection Time: 09/01/18 19:28 [...] seconds INR 3.5 (H) 0.9 - 1.1 Micro results Microbiology Results (72 hrs) Procedure Component Value Units Date/Time Culture, MRSA [[id number]] Collected: 09/01/182045 Order Status: Sent Lab Status: In process Updated: 09/01/182045 Specimen: Tissue from Nares Culture, Blood [[id number]] Collected: 09/01/181926 Order Status: Sent Lab Status: In process Updated: 09/01/181931 Specimen: Blood Culture, Blood [[id number]] Collected: 09/01/181926 Order Status: Sent Lab Status: In process Updated: 09/01/181931 Specimen: Blood Pneumocystis Jiroveci Ag, Immunofluorescent [[id number]] Collected: 09/01/18 160 Order Status: Sent Lab Status: In process Updated: 09/01/18 160 Specimen: Body Fluid from Sputum, Expectorated Culture, Respiratory, Lower, Smear [[id number]] Collected: 09/01/18 1555 Order Status: Sent Lab Status: In process Updated: 09/01/181607 Specimen: Body Fluid from Sputum, Expectorated Radiology results Xr Chest Pa And Lateral Result Date: [...] Huddleston MD Electronically signed: 09/01/2018 4:45 PM I reviewed imaging EKG Results (I reviewed EKG) I reviewed and summarized old records ASSESSMENT: Principal Problem: Pneumonia of right lower lobe due to infectious organism (HCC) Active Hospital Problems Diagnosis Pneumonia of right lower lobe due to infectious organism Resolved Hospital Problems Diagnosis No resolved problems to display. Code Status Full Medical Decision Maker Self DVT Prophylaxis On Coumadin PLAN: # RLL PNA - concern for PCP by Dr. Vargas, given immunocompromised state, rec'ed bactrim and broad spectrum abx - afebrile, no leukocytosis, normal procal - LDH and B-D Glucan pending, Sputum Cx and PCP pending, BCx and MRSA pending, Respiratory Pathogen Panel pending # COPD exacerbation - scheduled nebs, continue steroid taper - RT eval and treat # h/o PE - pharmacy to dose coumadin # locally recurrent and regionally metastatic squamous cell lung cancer - s/p chemo/radiati on, right lower lobectomy, in remission on Afatinib 30 mg, followed by Dr Park # Anxiety/Depression/Hypothyoidism/GERD - continue home meds # LE swelling - likely 2/2 steroids - cont low dose lasix (recently started by PCP) # RA - off MTX for the past one month - cont steroids (takes 10 mg daily usually) [facility] Documentation I expect this patient will be hospitalized for greater than 2-midnights and expect the post -hospital plan to be discharge to home or to an adult foster home. Electronically signed by: Kaden Rock MD 09/01/2018 23:50 [facility] Portions of this chart may have been created with [employer] voice recognition software. Occasi onal wrong-word or sound-alike substitutions may have occurred due to the inherent guzman itations of voice recognition software. Please read the chart carefully and recognize, using context, where these substitutions have occurred documented in th is encounter Miscellaneous Notes Plan of Care - Chen Jackman I RN - 09/04/2018 2:21 PM PDTProblem: Patient Care Overview ( Adult) Goal: Care Team Goals & Evaluation PROBLEM-RELATED GOALS: 1. Thea will have breath sounds consistent with baseline function throughout stay and reve rse airway bronchospasm when indicated. Reevaluate goal by 09/05/18. 2. Thea will maintain a patent airway and effective airway clearance by 09/05/18. 3. Thea will maintain adequate oxygenation via oximetry with SpO2 >90 by 09/05/18. STRATEGY TO ACHIEVE GOALS: - Administer respiratory medications as ordered and adjust with use of respiratory protocol s. - Perform airway clearance using vibratory PEP therapy. - Monitor saturations via oximetry and titrate to order as indicated. RESTRAINT-RELATED GOALS: STRATEGIES TO ACHIEVE RESTRAINT GOALS: Outcome: Improving Goal Evaluation: Ashley is A/O. VSS. Port chest, S/L. Diet fat and cholesterol. C/O SOB with activity. BLE amanda ma L +2 and R trace. BS coarse and wheezy expiratory and inspiratory. Himanshu color to BLE. An d scabs to the toes. No falls or injuries. lan of Care - Matilde Handy RRT - 09/04/2018 3:49 AM PDTProblem: Patient Care Overview (Adult) Goal: Care Team Goals & Evaluation PROBLEM-RELATED GOALS: 1. Thea will have breath sounds consistent with baseline function throughout stay and reve rse airway bronchospasm when indicated. Reevaluate goal by 09/05/18. 2. Thea will maintain a patent airway and effective airway clearance by 09/05/18. 3. Thea will maintain adequate oxygenation via oximetry with SpO2 >90 by 09/05/18. STRATEGY TO ACHIEVE GOALS: - Administer respiratory medications as ordered and adjust with use of respiratory protocol s. - Perform airway clearance using vibratory PEP therapy. - Monitor saturations via oximetry and titrate to order as indicated. RESTRAINT-RELATED GOALS: STRATEGIES TO ACHIEVE RESTRAINT GOALS: Outcome: Improving Goal Evaluation: Thea oxygen saturation is SpO2: 94 % on room air and a heart rate of 78. Breath sounds are coarse and post breathing treatment breath sound s are no change. Pt has a good, nonproductive cough. Pt's respirations are no shortness of b reath reported with no use of accessory muscles. PEP Therapy Method: mouth piece, vibratory Settings: PEP 5 Patient Tolerance: good lan of Care - Yara Mora RN - 09/04/2018 2:42 AM PDTProblem: Patient Care Overview (Adult) Goal: Care Team Goals & Evaluation PROBLEM-RELATED GOALS: 1. Thea will have breath sounds consistent with baseline function throughout stay and reve rse airway bronchospasm when indicated. Reevaluate goal by 09/05/18. 2. Thea will maintain a patent airway and effective airway clearance by 09/05/18. 3. Thea will maintain adequate oxygenation via oximetry with SpO2 >90 by 09/05/18. STRATEGY TO ACHIEVE GOALS: - Administer respiratory medications as ordered and adjust with use of respiratory protocol s. - Perform airway clearance using vibratory PEP therapy. - Monitor saturations via oximetry and titrate to order as indicated. RESTRAINT-RELATED GOALS: STRATEGIES TO ACHIEVE RESTRAINT GOALS: Goal Evaluation: Pt is A/Ox4. Pt was given tylenol for pain. Pt had coarse wheezes heard throughout lung fi elds. Pt complained of SOB with exertion. Pt is on room air, and ranging around 94% and high er. Pt slept between care. VSS. Pt remains free from falls this shift. Pt is independent. lan of Care - Flaca Wang RN - 09/03/2018 6:51 PM PDTProblem: Patient Care Overview (Adult) Goal: Care Team Goals & Evaluation PROBLEM-RELATED GOALS: 1. Thea will have breath sounds consistent with baseline function throughout stay and reve rse airway bronchospasm when indicated. Reevaluate goal by 09/05/18. 2. Thea will maintain a patent airway and effective airway clearance by 09/05/18. 3. Thea will maintain adequate oxygenation via oximetry with SpO2 >90 by 09/05/18. STRATEGY TO ACHIEVE GOALS: - Administer respiratory medications as ordered and adjust with use of respiratory protocol s. - Perform airway clearance using vibratory PEP therapy. - Monitor saturations via oximetry and titrate to order as indicated. RESTRAINT-RELATED GOALS: STRATEGIES TO ACHIEVE RESTRAINT GOALS: Outcome: Improving Goal Evaluation: Ashley is alert, oriented and calls appropriately. PRN tylenol x1 given. CT today. Normal. A dequate PO intake and output. Pt is anxious. Significant other at bedside this afternoon. VS S lan of Care - Festus Wiggins Chaplain - 09/03/2018 11:42 AM PDT Spiritual Care Thea Carmona is a 73 y.o. female who is admitted for Right Lower Lobe Pneumonia. Spiritual Evaluation: Patient is not typically a jew person. Spiritual Intervention: Listened to the patient's concerns, prayer was offered and pastoral presence provided. Spiritual Outcomes: Patient appreciated the puff iron operator's visit. Spiritual Goals / Follow-up: Will see the patient as requested. If there are any other spiritual care issues that arise, please contact puff iron operator. lan of Care - Joe Hernandez, STILL CLEANER - 09/03/2018 8:30 AM PDTFormatting of this note might be different fr om the original. Problem: Patient Care Overview (Adult) Goal: Care Team Goals & Evaluation PROBLEM-RELATED GOALS: 1. Thea will have breath sounds consistent with baseline function throughout stay and reve rse airway bronchospasm when indicated. Reevaluate goal by 09/05/18. 2. Thea will maintain a patent airway and effective airway clearance by 09/05/18. 3. Thea will maintain adequate oxygenation via oximetry with SpO2 >90 by 09/05/18. STRATEGY TO ACHIEVE GOALS: - Administer respiratory medications as ordered and adjust with use of respiratory protocol s. - Perform airway clearance using vibratory PEP therapy. - Monitor saturations via oximetry and titrate to order as indicated. RESTRAINT-RELATED GOALS: STRATEGIES TO ACHIEVE RESTRAINT GOALS: Goal Evaluation: Thea is breathing pretty well this am. Her lungs continue to display wheezes bilaterally before and after her nebulizer treatments. Her cough is strong and nonproductive. She takes neb treatments every 4 hrs as prescribed. SpO2: 95 % on room air. Severity Score 14 Class 4 Severity Score 0-4 ITEM 0 1 2 [...] with pulmonary disease or Central Nervous System 3 Chest X-RAY Clear or Normal baseline Unavailable [...] Clear Diminished unilaterally Diminished bilaterally &/or crackles Whe ezing or Rhonchi &/or absent unilateral Absent bilaterally 1 Cough Strong, non productive Moderate, loose, productive Weak, non-productive Weak, ineffective Non-spontaneous or may require suctioning 2 Sputum None Scant / Thin White/clear Moderate Beige/ yellow Large / Thick Dark Green/Brown Copious / Plugs Hemoptysis luli 0 LOC Alert, oriented, cooperative Disoriented, follows commands Obtunded, arousable, follows commands Obtunded, uncooperative, sedated Comatose 0 Oxygen Demand Room air Baseline 1-2 liters 3-6 liters >7 Liters Oxymizer to > 55% 60% or greater Total Severity Score (SS) Class 0-3 PRN 1 4-7 TID or PRN 2 8-11 QID 3 12-14 Q4 W/A 4 15+ Q4 5 lan of Ana - Matilde Quach RRT - 09/03/2018 5:14 AM PDTProblem: Patient Care Overview (Adult) Goal: Care Team Goals & Evaluation PROBLEM-RELATED GOALS: 1. Thea will have breath sounds consistent with baseline function throughout stay and reve rse airway bronchospasm when indicated. Reevaluate goal by 09/05/18. 2. Thea will maintain a patent airway and effective airway clearance by 09/05/18. 3. Thea will maintain adequate oxygenation via oximetry with SpO2 >90 by 09/05/18. STRATEGY TO ACHIEVE GOALS: - Administer respiratory medications as ordered and adjust with use of respiratory protocol s. - Perform airway clearance using vibratory PEP therapy. - Monitor saturations via oximetry and titrate to order as indicated. RESTRAINT-RELATED GOALS: STRATEGIES TO ACHIEVE RESTRAINT GOALS: Goal Evaluation: Thea oxygen saturation is SpO2: 93 % on room air and a heart rate of 79. Breath sounds are wheezes, inspiratory, wheezes, expiratory and po st breathing treatment breath sounds are no change. Pt has a good, productive cough. Pt's re spirations are dyspnea on exertion with mild, accessory muscle use. lan of Ana - Yara Mora RN - 09/03/2018 2:15 AM PDTProblem: Patient Care Overview (Adult) Goal: Care Team Goals & Evaluation PROBLEM-RELATED GOALS: 1. Thea will have breath sounds consistent with baseline function throughout stay and reve rse airway bronchospasm when indicated. Reevaluate goal by 09/05/18. 2. Thea will maintain a patent airway and effective airway clearance by 09/05/18. 3. Thea will maintain adequate oxygenation via oximetry with SpO2 >90 by 09/05/18. STRATEGY TO ACHIEVE GOALS: - Administer respiratory medications as ordered and adjust with use of respiratory protocol s. - Perform airway clearance using vibratory PEP therapy. - Monitor saturations via oximetry and titrate to order as indicated. RESTRAINT-RELATED GOALS: STRATEGIES TO ACHIEVE RESTRAINT GOALS: Goal Evaluation: Pt is A/Ox4. Pt complains of pain, but denies any pain intervention. Pt lungs have coarse wheezes heard throughout. Pt has 2+ edema in R/L ankles. Pt ambulates with supervision. VSS, O2 saturtions are at 94% and higher on room air. Pt received IV antibiotics. Pt remains irina e from falls this shift. Pt slept well between care. lan of Care - Flaca Wang RN - 09/02/2018 8:05 PM PDTProblem: Patient Care Overview (Adult) Goal: Care Team Goals & Evaluation PROBLEM-RELATED GOALS: 1. Thea will have breath sounds consistent with baseline function throughout stay and reve rse airway bronchospasm when indicated. Reevaluate goal by 09/05/18. 2. Thea will maintain a patent airway and effective airway clearance by 09/05/18. 3. Thea will maintain adequate oxygenation via oximetry with SpO2 >90 by 09/05/18. STRATEGY TO ACHIEVE GOALS: - Administer respiratory medications as ordered and adjust with use of respiratory protocol s. - Perform airway clearance using vibratory PEP therapy. - Monitor saturations via oximetry and titrate to order as indicated. RESTRAINT-RELATED GOALS: STRATEGIES TO ACHIEVE RESTRAINT GOALS: Outcome: Improving Goal Evaluation: Ashley is alert, oriented and calls appropriately. On IV abx. C'o of back pain but declines pain medication. On room air. LS course with expiratory wheezing. Adequate intake and output . Edema to L ankle. BLE himanshu. VSS lan of Care - Linda Elliottmildred Vaughan OT - 09/02/2018 1:40 PM PDT Problem: Patient Care Overview (Adult) Goal: Care Team Goals & Evaluation PROBLEM-RELATED GOALS: 1. Thea will have breath sounds consistent with baseline function throughout stay and reve rse airway bronchospasm when indicated. Reevaluate goal by 09/05/18. 2. Thea will maintain a patent airway and effective airway clearance by 09/05/18. 3. Thea will maintain adequate oxygenation via oximetry with SpO2 >90 by 09/05/18. STRATEGY TO ACHIEVE GOALS: - Administer respiratory medications as ordered and adjust with use of respiratory protocol s. - Perform airway clearance using vibratory PEP therapy. - Monitor saturations via oximetry and titrate to order as indicated. RESTRAINT-RELATED GOALS: STRATEGIES TO ACHIEVE RESTRAINT GOALS: Occupational Therapy Plan of Care Initial Evaluation, Treatment, Discharge Note Summary: Thea has been participating in occupational therapy for treatment of Decreased ADL independence, functional mobility s/p pneumonia.. Emphasis of session included bed mob ility, Lb dressing, functional t/fs, functional mobility in hallway, activity tolerance and toileting. Patient demonstrates progress towards functional goals as evidenced by demonstra ting mod I with functional t/fs and ADLs. Good safety awareness and pacing; Noted SOB and in creased time/effort. Thea has shown adequate progress towards goals and is to discharge OT at this time. Staff to continue to encourage and promote independence with ADLs and functi onal mobility. Recommending home with sig. Other assisting. Precautions/Limitations: falls Precaution Comment: CHEMO Previous Level of Function: Transferring: independent Ambulation: independent Toileting: independent Bathing: assistive person Dressing: assistive person Eating: independent Communication: understands/communicates without difficulty Swallowin-->swallows foods/liquids without difficulty Equipment Currently Used at Home: 4 wheeled walker (4WW), cane, straight, single point Prior Functional Level Comment: pt has 4WW but is not typically using it at home. pt is mod . Ind with ADLs, still driving ( sig. other also assists with driving) performing own medica tion management and finances . pt's significant other occasionally assisting with ADLs depen ding on fatigue level. Pt's sig. other performs all the IADLs. lives to watch TV, looks at flower, likes to garden Potential available assistance at discharge: significant other Living Environment/Accessibility: Lives With: alone Living Arrangements: house Number of Stairs to Enter Home: 0 Number of Stairs Within Home: 0 Transportation Available: car Living Environment Comment: house with ramp. sig. other lives in the basement. pt has tub/s hower set up with bench and grab bars and HHSH, raised toilet without grab bars. Patient/Family s Goals: Would like to get back to gardening Rehabilitation potential: good, to achieve stated therapy goals Occupational Therapy Discharge Recommendations are: Recommended discharge disposition: home with assist Post discharge occupational therapy recommendation: pt is motivated participant Equipment Recommendations: none Planned Interventions:ADL retraining, functional endurance training, transfer training Recommended Frequency: one time visit Patient Status/Goals: Reflects last filed data and may be from multiple contributors. ADLs no physical assist. LB Dressing, Level of [place]: modified independent Assistive Device: none LB Dressing Assess/Train, Position: sitting, standing LB Dressing Impairments: impaired functional endurance/activity tolerance Cognitive Mood/Behavior: calm, cooperative Orientation: oriented x 4 Arousal Level: opens eyes spontaneously Bed Mobility no physical assist; pt sleeps in recliner. Supine to Sit, Level of [place]: modified independent Sit to Supine, Level of [place]: modified independent Transfers pt. mod. I. SOB and increased time/effort Sit-Stand, Level of [place]: modified independent Stand-Sit, Level of [place]: modified independent [id number], Assistive Device: none Toilet, Level of [place]: modified independent Impairments: other (see comments) (decreased activity tolerance) ROM ROM Testing Results: no range of motion deficits identified Strength Strength Testing Results: no strength deficits were identified OT Goal Review Date Most Recent Value STG Review Date 09/02/18 at 09/02/2018 1328 LB Dressing Goal Most Recent Value STG Status new, met at 09/02/2018 1328 STG [place] Level modified independent at 09/02/2018 1328 Additional Goals #1 OT Most Recent Value STG Status new, met at 09/02/2018 1328 STG pt. will be mod. I with functional t/fs in room to promote safety at home. at 09/03/19 19 1328 Electronically signed by: Cristina Elliott OT, 09/02/2018 14:59 lan of Care - Keyana Lindsey, PT - 09/02/2018 1:40 PM PDT Problem: Patient Care Overview (Adult) Goal: Care Team Goals & Evaluation PROBLEM-RELATED GOALS: 1. Thea will have breath sounds consistent with baseline function throughout stay and reve rse airway bronchospasm when indicated. Reevaluate goal by 09/05/18. 2. Thea will maintain a patent airway and effective airway clearance by 09/05/18. 3. Thea will maintain adequate oxygenation via oximetry with SpO2 >90 by 09/05/18. STRATEGY TO ACHIEVE GOALS: - Administer respiratory medications as ordered and adjust with use of respiratory protocol s. - Perform airway clearance using vibratory PEP therapy. - Monitor saturations via oximetry and titrate to order as indicated. RESTRAINT-RELATED GOALS: STRATEGIES TO ACHIEVE RESTRAINT GOALS: Physical Therapy Plan of Care Initial Evaluation, Discharge Note Summary: Thea presents to physical therapy for mobility assessnebt following angie for pneumonia. Objective exam reveals impairments with aerobic capacity/endurance, anthropometr ic characteristics, functional endurance/activity tolerance, gait, locomotion, and balance. Emphasis of session included safety training and assessment. Patient demonstrates progress towards functional goals as evidenced by safe mobility, mod I in room, supervision in stroud. Thea has shown adequate progress towards goals and is to discharge PT at this time. Patricia rhoades is encouraged to ambulate into hallway with nursing staff and be up in chair for all meals . Precautions/Limitations: falls Precaution Comment: CHEMO Previous Level of Function: Transferring: independent Ambulation: independent Toileting: independent Bathing: assistive person Dressing: assistive person Eating: independent Communication: understands/communicates without difficulty Swallowin-->swallows foods/liquids without difficulty Equipment Currently Used at Home: 4 wheeled walker (4WW), cane, straight, single point Prior Functional Level Comment: pt has 4WW but is not typically using it at home. pt is mod . Ind with ADLs, still driving ( sig. other also assists with driving) performing own medica tion management and finances . pt's significant other occasionally assisting with ADLs depen ding on fatigue level. Pt's sig. other performs all the IADLs. lives to watch TV, looks at flower, likes to garden Living Environment/Accessibility: Lives With: alone Living Arrangements: house Number of Stairs to Enter Home: 0 Number of Stairs Within Home: 0 Transportation Available: car Living Environment Comment: house with ramp. sig. other lives in the basement. pt has tub/s hower set up with bench and grab bars and HHSH, raised toilet without grab bars. Patient/Family s Goals: Be able to go home, but get better first Rehabilitation potential: good, to achieve stated therapy goals Physical Therapy Discharge Recommendations are: Recommended discharge disposition: home with assist Post discharge physical therapy recommendation: home health Equipment Recommendations: none Planned Interventions: balance training, bed mobility training, gait training, patient/fam jana education, strengthening, transfer training Recommended Frequency: one time visit Patient Status/Goals: Reflects last filed data and may be from multiple contributors. Gait use of IV pole Level of [place]: supervised Assistive Device: none Distance (feet): 130 x2 Impairments: (decreased activity tolerance) Transfers Sit-Stand, Level of [place]: modified independent Stand-Sit, Level of [place]: modified independent [id number], Assistive Device: none Toilet, Level of [place]: modified independent Impairments: (decreased activity tolerance) Bed Mobility Supine to Sit, Level of [place]: modified independent Sit to Supine, Level of [place]: modified independent Balance Sitting Balance: Static: good balance Sitting Balance: Dynamic: good balance Standing Balance: Static: good balance Standing Balance: Dynamic: good balance Functional Endurance fair; SOB with activity ROM ROM Testing Results: no range of motion deficits identified Strength Strength Testing Results: no strength deficits were identified [facility] BASIC MOBILITY Turning from your back to your side while in a flat bed without using bedrails?: independen t or modified independent/no help Moving from lying on your back to sitting on the side of a flat bed without using bedrails? : independent or modified independent/no help Standing up from a chair using your arms (e.g. wheelchair, or bedside chair)?: independent or modified independent/no help Moving to and from a bed to a chair (including a wheelchair)?: independent or modfied indep endent/no help To walk in a hospital room?: independent or modified independent/no help Climbing 3-5 steps with a railing?: min assist, CGA, SBA, Supervision/a little help (judgem ent) Total Basic Mobility Six Click AM-PAC: 23 Completed the [facility] Activity Measure for Post Acute Care (AM-PAC) "6 Clicks" Ba sic Mobility Inpatient Short Form. This version of the AM-PAC is an assessment tool used to measure a person's level of disability in performing basic mobility tasks. This patient's score indicates a performance of 11.2% impairment in the functioning of basic mobility. Raw Score - Functional Limitation % (for CMS) - "Severity Modifier" CN 6 - 100.00 CM 7 - 92.36 8 - 86.62 9 - 81.38 CL 10 - 76.75 11 - 72.57 12 - 68.66 13 - 64.91 14 - 61.29 CK 15 - 57.70 16 - 54.16 17 - 50.57 18 - 46.58 19 - 41.77 CJ 20 - 35.83 21 - 28.97 22 - 20.91 CI 23 - 11.2 CH 24 - 0.00 Predicted Discharge During Acute Hospitalization (Raw Score) Home = 20.1 With assist = 17.9 SNF = 14 IRF = 13.6 LTAC = 11.5 PT Goal Review Date Most Recent Value STG Review Date 09/02/18 at 09/02/2018 1340 Additional Goal #1 PT Most Recent Value STG Status new, met at 09/02/2018 1340 STG Participate in PT eval and education at 09/02/2018 1340 Electronically signed by: Keyana Ba, PT, 09/02/2018 14:23 lan of Care - Nicole dick, CLAIRE Alas - 09/02/2018 11:53 AM PDTProblem: Discharge Planning Goal: Patient will be discharged in a safe manner Outcome: Improving This case therapist spoke with Codi regarding discharge plans. Codi lives in [place] in a [facility] with a ramp to enter. She has a live games dealer who lives in her basement. He is avail able to help her at all times. She states that she normally ambulates short distances either with her walker or cane, depending on how she is doing that day. No home O2. Her critical care clinical nurse specialist helps her with bathing, cooking, cleaning, transportation and "anything else I need". Patient states that she was just recently discharged from [facility] and knew that she was being discharged too soon. We dicussed the IMM and she understands this and has a copy. Patient states that she wants to discharge home when medically stable. She is not completel y opposed to home health or SNF but is declining at this time but she does not feel she will need it. Her PCP is Dr Chino, she uses [facility] in [place]. PLAN: Home with her caregiver at discharge. Her critical care clinical nurse specialist will transport her when medicall y stable. Electronically signed by: CLAIRE Castano 09/02/2018 11:53 lan of Care - Joe Cortes, STILL CLEANER - 09/02/2018 10:29 AM PDT Problem: Patient Care Overview (Adult) Goal: Care Team Goals & Evaluation PROBLEM-RELATED GOALS: 1. Thea will have breath sounds consistent with baseline function throughout stay and reve rse airway bronchospasm when indicated. Reevaluate goal by 09/05/18. 2. Thea will maintain a patent airway and effective airway clearance by 09/05/18. 3. Thea will maintain adequate oxygenation via oximetry with SpO2 >90 by 09/05/18. STRATEGY TO ACHIEVE GOALS: - Administer respiratory medications as ordered and adjust with use of respiratory protocol s. - Perform airway clearance using vibratory PEP therapy. - Monitor saturations via oximetry and titrate to order as indicated. RESTRAINT-RELATED GOALS: STRATEGIES TO ACHIEVE RESTRAINT GOALS: Goal Evaluation: Ashley is breathing better today. Her lungs sound a bit wheezy, especially on the R side. Her cough is strong and she swallows some of her secretions. She takes her nebulizer treatments well and her SpO2: 94 % on room air. She uses the PEP device following her neb treatments. Severity Score 12 Class 4 Severity Score 0-4 ITEM 0 1 2 [...] with pulmonary disease or Central Nervous System 3 Chest X-RAY Clear or Normal baseline Unavailable [...] Clear Diminished unilaterally Diminished bilaterally &/or crackles Whe ezing or Rhonchi &/or absent unilateral Absent bilaterally 1 Cough Strong, non productive Moderate, loose, productive Weak, non-productive Weak, ineffective Non-spontaneous or may require suctioning 2 Sputum None Scant / Thin White/clear Moderate Beige/ yellow Large / Thick Dark Green/Brown Copious / Plugs Hemoptysis luli 0 LOC Alert, oriented, cooperative Disoriented, follows commands Obtunded, arousable, follows commands Obtunded, uncooperative, sedated Comatose 0 Oxygen Demand Room air Baseline 1-2 liters 3-6 liters >7 Liters Oxymizer to > 55% 60% or greater Total Severity Score (SS) Class 0-3 PRN 1 4-7 TID or PRN 2 8-11 QID 3 12-14 Q4 W/A 4 15+ Q4 5 lan of Care - Helen Aponte RN - 09/02/2018 1:15 AM PDTProblem: Patient Care Overview (Adult) Goal: Care Team Goals & Evaluation PROBLEM-RELATED GOALS: 1. Thea will have breath sounds consistent with baseline function throughout stay and reve rse airway bronchospasm when indicated. Reevaluate goal by 09/05/18. 2. Thea will maintain a patent airway and effective airway clearance by 09/05/18. 3. Thea will maintain adequate oxygenation via oximetry with SpO2 >90 by 09/05/18. STRATEGY TO ACHIEVE GOALS: - Administer respiratory medications as ordered and adjust with use of respiratory protocol s. - Perform airway clearance using vibratory PEP therapy. - Monitor saturations via oximetry and titrate to order as indicated. RESTRAINT-RELATED GOALS: STRATEGIES TO ACHIEVE RESTRAINT GOALS: Outcome: Improving Goal Evaluation: Codi arrived to the unit in stable condition. VSS. Alert oriented x4, calls appropriately. Steady on feet, supervision to BR. Lung sounds coarse and exp wheezes with productive cough . Denied any pain this shift. Port accessed. Started on IV Abx. lan of Care - Viki Corbett, MAJO - 09/01/2018 10:28 PM PDTProblem: Patient Care Overview (Adult) Goal: Care Team Goals & Evaluation PROBLEM-RELATED GOALS: 1. Thea will have breath sounds consistent with baseline function throughout stay and reve rse airway bronchospasm when indicated. Reevaluate goal by 09/05/18. 2. Thea will maintain a patent airway and effective airway clearance by 09/05/18. 3. Thea will maintain adequate oxygenation via oximetry with SpO2 >90 by 09/05/18. STRATEGY TO ACHIEVE GOALS: - Administer respiratory medications as ordered and adjust with use of respiratory protocol s. - Perform airway clearance using vibratory PEP therapy. - Monitor saturations via oximetry and titrate to order as indicated. RESTRAINT-RELATED GOALS: STRATEGIES TO ACHIEVE RESTRAINT GOALS: Goal Evaluation: Thea oxygen saturation is SpO2: 94 % on room air and a heart rate of 96. Breath sounds are coarse, wheezes, expiratory and post breathing t reatment breath sounds are . Pt has a good, congested, nonproductive cough. Pt's respiratio ns are dyspnea on exertion, depth regular, pattern regular, unlabored with .neb txs given v ia mouthpiece, tolerates well. Uses pep with good technique,effort. documented in this en counter Plan of Treatment +--------+---------+ + + + | Date | Type | Specialty | Care Team | Description | +--------+---------+ + + + | 03/06/ | Office | Rheumatology | Santosh Sumner, | | | 2019 | Visit | | [address] | | | | | | [facility] | | | | | | [facility] [place] [address] | | | | | | [phone] | | | | | | | [...] + +--------+ + + + | 1,3 SAVQ-N-LOMNBI | Routin | 09/01/2018 | | Results [...] | | Oral Anticoagulation | | [facility] | | | | Range: 2.0 [...] [address] | [place] | [phone] | | [facility] | | [address] | | | - LABORATORY | | [...] | + +---------+ + + + | eGFR, | 53 (L) | >=60 | [facility] | | | non- | | mL/min/1.73m2 | . [facility] | | | Bangladeshi | | | MEDICAL | | | [...] ST. | [address] | [place], [place] | [phone] | | [facility] | | [address] | | | - LABORATORY | | | | + + + + + CBC with Differential (09/03/2018 5:31 AM PDT) + + + + + + | Component | Value | Ref Range | Performed | Pathologist | | | | | At | Signature | + + + + + + | White Blood | 10.8 | 4.0 - 11.0 K/uL [...] | | | | | g/dL | . [facility] | | | | [...] | | | | WBCs | [facility] | | | | [...] [address] | [place] | [phone] | | [facility] | | [address] | | | - LABORATORY | | [...] ST. | [address] | [place] | [phone] | | [facility] | | [address] | | | - LABORATORY | | [...] fissure which is stable from | | 2015. Somewhat extensive thickening is seen in the [...] + | [facility] | [address] | [place] | [phone] | | [facility] | | [address] | | | - LABORATORY | | [...] [address] | [place] | [phone] | | [facility] | | [address] | | | - LABORATORY | | [...] + + + | Red Blood | 3.85 | 3.70 - 5.20 | [...] | | | | | | [facility] | | | | | | [...] Granulocyte | Preliminary studIes have | | [facility]OO | | | s | indicated [...] | nRBC | | K/uL | [facility] | [...] | [address] | [place] | [phone] | | [facility] | | [address] | | | - LABORATORY | | [...] | + +---------+ + + + | eGFR, | 60 | >=60 | [facility] | | | non- | | mL/min/1.73m2 | Janet [facility]ANN | | | Bangladeshi | | | MEDICAL | | | [...] + | [facility] | [address] | [place] | [phone] | | [facility] | | [address] | | | - LABORATORY | | [...] | | Time | | seconds | [facility] | | | | | | MEDICAL | | | | | | CENTER - | | | | | | LABORATORY | | + + + + + + | INR | 3.5 (H)Comment: Usual | 0.9 - 1.1 | [facility] | | | | Oral Anticoagulation | | [facility] | | | | Range: 2.0 [...] [address] | [place] | [phone] | | [facility] | | [address] | | | - LABORATORY | | [...] + | [facility] | [address] | [place] | [phone] | | [facility] | | [address] | | | - LABORATORY | | | | + + + + + 1,3 Ayhb-Y-Kmdndv (09/01/2018 7:28 PM PDT) + + + [...] levels | | | | | | of(1-3)-Dbfg-H-Mdfnzl. | | | | | | The [...] produces | | | | | | little(1-3)-Alfq-L-Hnaqm | | | | | | n [...] + + | Performed at: 01 - [facility] [address], | REFERENCE LAB | | [place] [id number] Discount Clerk: Keyana Henderson PhD, | [facility] | | Phone: [phone] | | + + + + + + + + | Performing | Address | City/State/Zipcode | Phone Number | | Organization | | | | + + + + + | REFERENCE LAB | [address] | [place], [place] | [phone] | | [facility] | [place]elle [place] | [address] | | + + + + + Lactate Dehydrogenase (09/01/2018 7:28 PM PDT) + +---------+ + + + | Component | Value | Ref Range | Performed | Pathologist | | | | | At | Signature | + +---------+ + + + | LDH TOTAL | 299 (H) | 120 - 246 U/L | [facility] | | | | [address] | [place] | [phone] | | [facility] | | [address] | | | - LABORATORY | | [...] [address] | [place] | [phone] | | [facility] | | [address] | | | - LABORATORY | | [...] | + +---------+ + + + | eGFR, | 60 | >=60 | [facility] | | | non- | | mL/min/1.73m2 | [facility] | | | [place] | | | MEDICAL | | | [...] ST. | [address] | [place] | [phone] | | [facility] | | [address] | | | - LABORATORY | | | | + + + + + CBC with Differential (09/01/2018 7:28 PM PDT) + + + + + + | Component | Value | Ref Range | Performed | Pathologist | | | | | At | Signature | + + + + + + | White Blood | 10.7 | 4.0 - 11.0 K/uL | [facility] | | | Cells | | | [facility] | | | | | | MEDICAL | | | | | | CENTER - | | | | | | LABORATORY | | + + + + + + | Red Blood | 4.09 | 3.70 - 5.20 | [...] | | Lymphocytes | | K/uL | [facility] | | [...] + | [facility] | [address] | [place] | [phone] | | [facility] | | [address] | | | - LABORATORY | | | | + + + + + Culture, Blood (09/01/2018 7:27 PM PDT) + + + + + + | Component | Value | Ref Range | Performed | Pathologist | | | | | At | Signature | + + + + + + | Culture | No growth after 5 days | | [facility] | | | | incubation. | | [...] [address] | [place] | [phone] | | [facility] | | [address] | | | - LABORATORY | | [...] | | | | incubation. | | [facility] | | | [...] [address] | [place] | [phone] | | [facility] | | [address] | | | - LABORATORY | | [...] right lower lobe due to infectious organism - Primary | + + | Acute [...] | 650 mg 650 mg, Oral, EVERY 4 | | 19 9:15 | | | [...] | | | | | dose on [facility] 09/01/18 at 2100 | | | [...] | | | | | | on [facility] 09/02/18 at 0000 | | | | [...] | times per day), First dose on Adele | | | [...] PDT | | | | | Starting 09/03/18 at 1544, For | | | | [...] | | | | | dose on [facility] 09/02/18 at 0730, Give | | | | [...] HOURS PRN, Anxiety, | | | Starting 09/03/18 at 1722 | | + +---+ | [...] | | | | First dose on [facility] 09/02/18 at 0300, | | | | [...] | | | | | Oral, ONCE, Thu09/02/18 at 0415, | | AM PDT | [...] | | | | 90 Minutes, ONCE, Adele 09/02/18 at | | | | [...] AM PDT | | | | | [facility] 09/02/18 at 0800 | | | | [...] | | | | First dose on [facility] 09/02/18 at 1800, | | PM PDT | [...]
--- OUTSIDE RECORDS SUMMARY | ~2019-12-28 | XMS | Encounter Summary ---
Demographics + + + | Address | [address] | | | [place] [address] | + + + | Home Phone [...] [address] [address] | | | | | [address] | | + + + + + Care Team Providers + +------+ + | Care Chief Nursing Officer Name | Role | Phone | + +------+ + | Caitlin Chino MD | PCP | | + +------+ + Reason for Visit + + + | Reason | Comments | + + + | Follow-up | 6 month FU | + + + Encounter Details +--------+ + + + + | Date | Type | Department | Care Team | Description | +--------+ + + + + | 11/30/ | Virtual | [facility] | Anisha Lopez DO | Cerebrovascular | | 2020 | Office | CARDIOLOGY [place] | [address] | accident (CVA), | | | Visit | [address] | [place], [place] | unspecified | | | | [place], [place] | [address] | mechanism (HCC) | | | | [phone] | | (Primary Dx); | | | | [phone] | | Essential | | | | | | hypertension; | | | | | | Paroxysmal atrial | | | | | | fibrillation (HCC); | | | | | | Hyperlipidemia, | | | | | | unspecified | | | | | | hyperlipidemia type | +--------+ + + + + Social [...] + + + | Blood Pressure | 140/79 | 12/01/2019 10:48 AM | | | | | PDT | | + + + + + | Pulse | 63 | 12/01/2019 10:48 AM | | | | | PDT [...] Weight | 66.7 kg (147 lb) | 12/01/2019 10:48 AM | | | | | PDT | | + + + + + | Height | 157.5 cm (5' 2") | 12/01/2019 10:48 AM | | | | | PDT | | + + + + + | Body Mass Index | 26.89 | 12/01/2019 10:48 AM | | | | | PDT [...] as of this encounter Progress Notes Anisha Lopez DO - 12/01/2019 11:00 AM PDT Clinical discussion length: 11-20 min ([id number]) Patient has not been seen in office within the past 7 days, and outcome of this call is not to recommend soonest available office visit. Participants: Patient Participant verbally confirmed the choice to initiate care by, and consents to receive care by Telephone. Participant is currently at home [facility] Cardiology Cardiology Follow Up Note Reason [...] above past medical history. She [facility] to [facility] cardiology office for initial consultation regarding dyspnea [...] denies any recent episodes of chest pain. I saw the patient on 12/16/2018. At that time, we obtained a 1 week ambulatory monitor. He r diltiazem was discontinued and she was switched to metoprolol. Her one week monitor demons trated sinus rhythm and was negative for any paroxysms of atrial fibrillation. Her LE edema improved after switching from dilitazem to metoprolol. She plans on following up with pulmon ology in [place]. She continues to have issues with dyspnea on exertion. She denies any chest pains. She denies any paroxysms of afib that she is aware of. She denies any bleeding issues with anticoagulation. Interim History I last saw the patient on 03/10/2019. Recently, the patient reports that she has been richard medina. She denies any episodes of palpitations or paroxysms of atrial fibrillation that e is aware of. She remains on Coumadin for anticoagulation and reports that her INR has bee n stable. She denies any bleeding issues. She has been staying at home recently due to the COVID pandemic and reports that she has been very inactive. She does need help with some of her ADLs. She has been having some shortness of breath recently, which has been chronic and unchanged. She denies any lower extremity swelling, she denies any orthopnea or PND. S he denies any chest pains. Review of Systems Constitutional: Positive for fatigue. [...] apnea) 08/02/2013 Other chronic pain Pulmonary embolism ([facility]) 05/03/2018 RA (rheumatoid arthritis) ([facility]) Stroke ([facility]) 2005 Thyroid disease Unspecified visual disturbance glasses Past Surgical History Procedure Laterality Date BACK SURGERY BLADDER SUSPENSION 2000 CATARACT EXTRACTION CAUDAL BLOCK 07-15-12 Caudal w/ cath target Right L5, S1 CERVICAL FUSION N/A 04/06/2013 Procedure: CERVICAL - FUSION - POSTERIOR; Surgeon: Silviano Cabrera MD; Location: [facility] OR; Service: Ortho/Spine; Laterality: N/A; C4-6 & [...] & FUSION; Surgeon: Silviano Cabrera MD; Location: [facility] OR; Service: Ortho/Spine; Laterality: N/A; LUMBAR EPIDURAL INJECTION 05-27-12 Right L5 TFESI target Right S1 LUMBAR FUSION N/A 03/31/2014 Procedure: LUMBAR - FUSION - POST; Surgeon: Silviano Cabrera MD; Location: [facility] OR; Service: Ortho/Spine; Laterality: N/A; L 4/S1 LUMBAR FUSION N/A 03/29/2014 Procedure: LUMBAR - FUSION - ANTERIOR; Surgeon: Silviano Cabrera MD; Location: [facility] MAIN O R; Service: Ortho/Spine; Laterality: N/A; [...] capsule Take 1 capsule by mouth marlen yo. No facility-administered encounter medications on file as [...] Years: 58.00 Smokeless tobacco: Never Used Comment: johnny July 2011 Alcohol use No Drug use: No Sexual activity: Not on file Other Topics Concern Not on file Social History Narrative No narrative on file PHYSICAL EXAM Vitals: 12/01/19 1048 BP: 140/79 Pulse: 63 Weight: 66.7 kg (147 lb) Height: 1.575 m (5' 2") Physical Exam from prior visit GENERAL: Resting comfortably, NAD HEENT: Normocephalic, atraumatic. [...] Appropriate, affect appears normal DATA Results for TENA CARMONA" ( ) as of 12/01/2019 09:30 Ref. Range 11/30/2019 14:19 WBC Latest Ref Range: 3.80 - 11.00 K/uL 12.50 (H) RBC COUNT Latest Ref Range: 3.70 - 5.10 M/uL 3.96 Total Hemoglobin Latest Ref Range: 11.3 - 15.5 g/dL 12.2 Hematocrit Latest Ref Range: 34.0 - 46.0 % 39.5 MCV Latest Ref Range: 80.0 - 100.0 fl 99.7 MCH Latest Ref Range: 27.0 - 34.0 pg 30.8 MCHC Latest Ref Range: 32.0 - 35.5 g/dL 30.9 (L) RDW-SD Latest Ref Range: 37 - 53 fl 57.8 (H) Platelet Count Latest Ref Range: 150 - 400 K/uL 255 Results for TENA CARMONA" ( ) as of 12/01/2019 09:30 Ref. Range 11/30/2019 14:19 ESR Latest Ref Range: 0 - 30 mm/Hr 37 (H) Results for TENA CARMONA" ( ) as of 12/01/2019 09:30 Ref. Range 11/30/2019 14:19 Na Latest Ref Range: 135 - 145 mmol/L 144 K Latest Ref Range: 3.5 - 4.9 mmol/L 3.8 Chloride Latest Ref Range: 99 - 109 mmol/L 113 (H) Carbon dioxide Latest Ref Range: 23 - 32 mmol/L 24 Anion Gap Latest Ref Range: 5 - 20 mmol/L 11 Glucose Latest Ref Range: 65 - 99 mg/dL 95 BUN Latest Ref Range: 8 - 25 mg/dL 19 Creatinine Latest Ref Range: 0.50 - 1.00 mg/dL 1.00 BUN/Creatinine Ratio Unknown 19 Albumin Latest Ref Range: 3.3 - 4.8 g/dL 3.1 (L) Estimated GFR Latest Ref Range: >60 mL/min/1.73m2 54 (L) Calcium Latest Ref Range: 8.5 - 10.5 mg/dL 9.0 Protein, Total Latest Ref Range: 6.3 - 8.2 g/dL 6.0 (L) ALK PHOS Latest Ref Range: 35 - 115 U/L 54 ALT (SGPT) (REF) Latest Ref Range: 10 - 65 U/L 22 AST (SGOT) (REF) Latest Ref Range: 10 - 45 U/L 13 Bilirubin Total (Calculated) Latest Ref Range: 0.1 - 1.5 mg/dL 0.3 Globulin Latest Ref Range: 1.3 - 4.9 g/dL 2.9 CRP Latest Ref Range: <0.5 mg/dL 1.1 (H) A/G Ratio Latest Ref Range: 1.0 - 2.4 1.1 EKG: ordered and reviewed by myself 12/16/18 [...] months ago - The patient is a 74yo female which the above complex past medical [...] of afib. She is tolerating anticoagulation well. Recently, she has been doing well from a cardiac standp oint and denies any paroxysms of atib that she is aware of. - Continue metoprolol succinate 25mg po daily - Continue anticoagulation with coumadin - Continue spironolactone 25mg po daily - continue current dose of simvastatin. - [...] | 2019 | Visit | | [address] | | | | | | [facility] | | | | | | [place] [address] | | | | | | [phone] | | | | | | | | +--------+---------+ + + + documented as of this encounter Visit Diagnoses + + | Diagnosis | + + | Cerebrovascular accident (CVA), unspecified mechanism (HCC) - Primary | + + | Essential hypertension Unspecified essential hypertension | + + | Paroxysmal atrial fibrillation (HCC) Atrial fibrillation | + + | Hyperlipidemia, unspecified hyperlipidemia type | + + documented in this encounter
--- OUTSIDE RECORDS SUMMARY | ~2019-12-28 | XMS | Encounter Summary ---
Demographics + + + | Address | [address] | | | [place] [address] | + + + | Home Phone [...] [place] | | | | | [address] | | + + + + + Care Team Providers + +------+ + | Care Mental Health Specialist Name | Role | Phone | [...] Description | +--------+--------+ + + + | 11/22/ | Refill | [facility] | Santosh Sumner, | Medication Refill | | 2019 | | RHEUMATOLOGY [address] | PA-C [address] | | | | | [facility] | [facility] | | | | | [place], [place] | [place] [address] | | | | | [address] | [phone] | | | | | [phone] | | | +--------+--------+ + + + [...] encounter Miscellaneous Notes Telephone Encounter - Duyen Gonsalves, Calendering Machine Operator - 11/24/2019 2:21 PM PDTSpoke to patient and she had some recent blood work done by [place] M.D. they will be faxing it over. Electronically signed by Duyen Gonsalves, Calendering Machine Operator at 2019 2:22 PM PDTTelephone Encounter - Santosh Sumner PA-C - 11/24/2019 8:29 AM PDTNeeds labs elephone Encou nter - Duyen Gonsalves, Calendering Machine Operator - 11/23/2019 4:06 PM PDTFormatting of this no te might be different from the original. Requested by: pharmacy Medication Requested: Requested Prescriptions Pending Prescriptions Disp Refills methotrexate 2.5 mg tablet [Pharmacy Med Name: METHOTREXATE 2.5MG TABS] 96 tablet 0 Sig: TAKE 8 TABLETS BY MOUTH ONCE EVERY WEEK FOR RHEUMATOID ARTHRITIS. Last filled: 08/30/2019 Last seen: 08/30/2019 Most recent labs in chart: 03/11/2019 Any RCN: none Next Appt: 11/30/2019 Last Chart Note Stated: The patient returns to the clinic for a follow up appointment. She is on 15mg Methotrexate weekly with 1mg Folic Acid daily and doing well. We will make no gladys nges and see her back in 3 months Last Eye Exam: n/aElectronically signed by Duyen Gonsalves, Calendering Machine Operator at 020 4:08 PM PDTdocumented in this encounter Plan of Treatment +--------+---------+ + + + | Date | Type | Specialty | Care Team | Description | +--------+---------+ + + + | 03/06/ | Office | Rheumatology | Santosh Sumner, | | | 2019 | Visit | | [address] | | | | | | [facility] | | | | | | [place] [address] | | | | | | [phone] | | | | | | | | +--------+---------+ + + + documented as of this encounter Visit Diagnoses + + | Diagnosis | + + | Rheumatoid arthritis, involving unspecified site, unspecified rheumatoid factor | | presence (HCC) | + + documented in this encounter"
--- OUTSIDE RECORDS SUMMARY | ~2019-12-28 | XMS | Encounter Summary ---
Demographics + + + | Address | [address] | | | [place] [address] | + + + | Home Phone [...] [place] | | | | | [address] | | + + + + + Care Team Providers + +------+ + | Care Nursing Home Manager Name | Role | Phone | [...] + + | 09/15/ | Documentati | [facility] | Liseth Hodge, | Psychosocial Support | | 2014 | on | [facility] AROMATHERAPIST | | | | | [facility] [address] | | | | | | [address] | | | | | | [place] [address] | | | | | | [phone] | | | +--------+ + + + [...] as of this encounter Progress Notes Liseth Hodge, CLAIRE - 09/15/2014 4:03 PM PDTOncology Primary School Teacher Librarian met with Thea to adm inister the [facility] Dist[facility] Therm[facility] and review it with her. Thea is being treated for dipti ng cancer. She was first diagnosed in March of 2013. She lives in [place], is and has a significant other. She is on Medicaid and Medicare. She has homecare services [facility] the [facility], [facility] and [employer] [facility] [employer] [facility] - providing [...] good coping skills and strong maximilian. This outreach and education social worker allowed for expression of feeling and provided supportive counseling and infor mation regarding the emotional aspects of a cancer diagnosis and treatment and offered liter ature on her diagnosis. Also provided her with a cookbook for people going through cancer tr eatment and referred her to the [employer] Look Good Feel Better program. She also expressed an interest in a wig and this outreach and education social worker apprised the ACS. This social wo rker encouraged Thea to continue to access individual support and apprised her of the [facility] r Survivors Support Group. This outreach and education social worker is available to provide emotional support and additional community resource information and referral as needed. Patient is aware of supp ort services and how to access them. FORKLIFT DRIVER will follow up at appointments and by phone as verona merida. documented in this encounter Plan of Treatment +--------+---------+ + + + | Date | Type | Specialty | Care Team | Description | +--------+---------+ + + + | 03/06/ | Office | Rheumatology | Santosh Sumner, | | | 2019 | Visit | | [address] | | | | | | [facility] | | | | | | [place] [address] | | | | | | [phone] | | | | | | | | +--------+---------+ + + + documented as of this encounter Visit Diagnoses Not on filedocumented in this encounter"
--- OUTSIDE RECORDS SUMMARY | ~2019-12-28 | XMS | Encounter Summary ---
Demographics + + + | Address | [address] | | | [place] [address] | + + + | Home Phone [...] [place] | | | | | [address] | | + + + + + Care Team Providers + +------+ + | Care Drafter Cartographic Name | Role | Phone | + +------+ + | Davis Ivan MD | PCP | | + +------+ + Encounter Details +--------+ + + + + | Date | Type | Department | Care Team | Description | +--------+ + + + + | 03/30/ | Hospital | [facility] | [place], | Pulmonary nodule | | 2012 | Encounter | [facility] | Ayana Looney MD | | | | | [address] | | | | | | [place] | | | | | | [address] | | | | | | [phone] | | | +--------+ + + + [...] | 0 | | 06/08/201 | | (IRON) 28 MG TABS | [...] | | 2019 | Visit | | [place] [address] | | | | | | [facility] | | | | | | [place] [address] | | | | | | [phone] | | | | | | | | +--------+---------+ + + + documented as of this encounter Procedures + +--------+ + + + | Procedure Name | Priori | Date/Time | Associated Diagnosis | Comments | | | ty | | | | + +--------+ + + + | VITALIY FUNGUS | Routin | 03/30/2013 | Pulmonary [...] | | | Type | | | ST[facility]et VANN | | [...] YELLOW MUCOID | [facility] | | [facility] | | | [facility] | | | - LABORATORY | + + + + + + + + | Performing | Address | City/State/Zipcode | Phone Number | | Organization | | | | + + + + + | [facility] | [address] | [place] | [phone] | | [facility] | | [address] | | | - LABORATORY | | | | + + + + + | [facility] | [address] | [place] | | | [facility] | | [address], [facility] | | | - LABORATORY | | [...] by: | | | | | | [facility], | | | | | | [address] | | | | | | [place] | | | | | | [address] | | | | + + + + + + + + | Specimen | + + | Blood specimen | | (specimen) | + + + + + + + | Performing | Address | City/State/Zipcode | Phone Number | | Organization | | | | + + + + + | [facility] | [address] | [place] | [phone] | | [facility] | | [address] | | | - LABORATORY | | | | + + + + + | [facility] | [address] | [place], [place] | | | [facility] | | [id number] | | | - LABORATORY [...] 500 | | | | | | [facility] | | | | | | [facility] [id number] CLIA: | | | | | | [id number] | | | | + + + + + + + + | Specimen | + + | Blood specimen | | (specimen) | + + + + + + + | Performing | Address | City/State/Zipcode | Phone Number | | Organization | | | | + + + + + | [facility] | [address] | [place] | [phone] | | [facility] | | [address] | | | - LABORATORY | | | | + + + + + | [facility] | [address] | [place], [place] | | | [facility] | | [address], [facility] | | | - LABORATORY | | [...] 500 | | | | | | [facility] | | | | | | [facility] [id number] CLIA: | | | | | | [id number] | | | | + + + + + + + + | Specimen | + + | Blood specimen | | (specimen) | + + + + + + + | Performing | Address | City/State/Zipcode | Phone Number | | Organization | | | | + + + + + | [facility] | [address] | [place], [place] | [phone] | | [facility] | | [address] | | | - LABORATORY | | | | + + + + + | [facility] | [address] | [place], [place] | | | [facility] | | [address] [place] [address] | | | - LABORATORY | | [...] coccidioidomycosis,altho | | | | | | [facility] titers of 1:2 and | | | [...] Corporate | | | | | | [place] [address] | | | | | | CLIA: [id number] | | | | + + + + + + + + | Specimen | + + | Blood specimen | | (specimen) | + + + + + + + | Performing | Address | City/State/[facility] | Phone Number | | Organization | | | | + + + + + | [facility] | [address] | [place] | [phone] | | [facility] | | [address] | | | - LABORATORY | | | | + + + + + | [facility] | [address] | [place], [place] | | | [facility] | | [address], [facility] | | | - LABORATORY | | | | + + + + + documented in this encounter Visit Diagnoses + + | Diagnosis | + + | Pulmonary nodule Solitary pulmonary nodule | + + documented in this encounter
--- OUTSIDE RECORDS SUMMARY | ~2019-12-28 | XMS | Encounter Summary ---
Demographics + + + | Address | [address] | | | [place] [address] | + + + | Home Phone [...] [address] | | | | | [address] | | + + + + + Care Team Providers + +------+ + | Care Counter Molder Name | Role | Phone | + +------+ + | Davis Ivan MD | PCP | | + +------+ + Reason for Visit +---------+--------+ + | Reason | Onset | Comments | | | Date | | +---------+--------+ + | Results | 06/29/ | sputum | | | 2015 | | +---------+--------+ + Encounter Details +--------+ + + + + | Date | Type | Department | Care Team | Description | +--------+ + + + + | 06/29/ | Telephone | [facility] [place] | [place], | Results (sputum) | | 2015 | | PULMONARY [address] | Ayana Looney MD | | | | | [place], | | | | | | [place] [address] | | | | | | [phone] | | | +--------+ + + + [...] Telephone Encounter - Sara Evans RN - 06/29/2015 2:52 PM PSTCalled Thea and advis ed per Dr Taylor that the sputum submitted on 06/27/15 at [facility] shows negative on the AFB smear. Okay per Thea. documented in this encounter Plan of Treatment +--------+---------+ + + + | Date | Type | Specialty | Care Team | Description | +--------+---------+ + + + | 03/06/ | Office | Rheumatology | Santosh Sumner, | | | 2019 | Visit | | [address] | | | | | | [place] | | | | | | [place] [address] | | | | | | [phone] | | | | | | | | +--------+---------+ + + + documented as of this encounter Visit Diagnoses Not on filedocumented in this encounter"
--- OUTSIDE RECORDS SUMMARY | ~2019-12-28 | XMS | Encounter Summary ---
Demographics + + + | Address | [address] | | | [place] [address] | + + + | Home Phone [...] [place] | | | | | [address] | | + + + + + Care Team Providers + +------+ + | Care Marketing Communications Manager Name | Role | Phone | + +------+ + | Davis Ivan MD | PCP | | + +------+ + Encounter Details +--------+ + + + + | Date | Type | Department | Care Team | Description | +--------+ + + + + | 08/30/ | Hospital | [facility] | Conversion | Pain | | 2014 | Encounter | CONVERSION [address] | Transaction, | | | | | [address] | Provider Unknown | | | | | [place] | [phone] | | | | | [address] | | | | | | [phone] | | | +--------+ + + + [...] | 2019 | Visit | | [address] | | | | | | [facility] | | | | | | [place] [address] | | | | | | [phone] | | | | | | | [...]
--- OUTSIDE RECORDS SUMMARY | ~2019-12-28 | XMS | Encounter Summary ---
Demographics + + + | Address | [address] | | | [place] [address] | + + + | Home Phone [...] [place] | | | | | [address] | | + + + + + Care Team Providers + +------+ + | Care Automotive Internet Sales Consultant Name | Role | Phone | + +------+ + | Davis Gilbert MD | PCP | | + +------+ + Encounter Details +--------+ + + + + | Date | Type | Department | Care Team | Description | +--------+ + + + + | 04/06/ | Hospital | [facility] | Silviano Perry MD | | | 2012 - | Encounter | [facility] [address] | [address] | | | | | [address] | [place], [place] | | | 04/09/ | | [place], [place] | [address] | | | 2012 | | [address] | | | | | | [phone] | | | +--------+ + + + [...] 04/09/1350 Date of Service: 04/09/13847 Status: Signed Computer Sciences Professor: RITA Rubio (Advanced Registered Nurse Practitioner) [facility] Service: Orthopedic Surgery Brief Post-op Discharge [...] improvement throughout the course. Patient was dischar praveena in stable condition. Disposition: Home Condition: Stable [...] Progress Notes by Matilde Turner RN at 04/09/131329 Author: Matilde Turner RN Service: (none) Author Type: Registered Nurse Filed: 04/09/131330 Date of Service: 04/09/131329 Status: Signed Computer Sciences Professor: Matilde Turner RN (Registered Nurse) Discharge teaching [...] (none) Author Type: Physical Therapist Filed: 04/09/13 1520 Date of Service: 04/09/13 1023 Status: Signed Computer Sciences Professor: Tamiko Murphy PT (Physical Therapist) 04/09/13 1023 [...] therapy;Return to prior living situation onver robert [place]ala, Provider Unknown - 04/08/2013 3:41 PM PST Progress Notes by BLAIR Chang at 04/08/13 1541 Author: BLAIR Chang Service: (none) Author Type: Occupational Therapist Filed: 04/08/13 1541 Date of Service: 04/08/13 1541 Status: Signed Computer Sciences Professor: BLAIR Chang (Occupational Therapist) 04/08/13 0927 Precautions [...] stated understanding . Prior Function Level of [place] Modified independent with ADLs;Assist with IADLs;Modified independent [...] at a later time d/t pain at 7/10. pt reports she Just received p ain [...] Notes by Nathalie Yang PT at 04/08/13 1245 Author: Nathalie Yang PT Service: (none) Author Type: Physical Therapist Filed: 04/08/13 1305 Date of Service: 04/08/13 1375 Status: Signed Computer Sciences Professor: Nathalie Yang PT (Physical Therapist) 04/08/13 1246 PT Last Visit PT Received On 04/08/13 [...] Denver Arias PTA Service: (none) Author Type: Health Screener Filed: 04/08/13 1157 Date of Service: 04/08/13 1156 Status: Signed Computer Sciences Professor: Denver Arias PTA (Health Screener) 04/08/13 1156 PT Last Visit PT Received [...] situation onver robert Transaction, Provider Unknown - 04/07/2013 1:18 PM PST Progress Notes by Jenny Vila PT at 04/07/13 1318 Author: Jenny Vila PT Service: (none) Author Type: Physical Therapist Filed: 04/07/13 1356 Date of Service: 04/07/13 1318 Status: Signed Computer Sciences Professor: Jenny Vila PT (Physical Therapist) 04/07/13 1318 [...] she feels more security given limitations of [place] collar; pt left sitting in high back [...] see where she is stepping. onver robert Transaction, Provider Unknown - 04/07/2013 9:04 AM PST Case Management by CLAIRE Lee at 04/07/13903 Author: CLAIRE Lee Service: (none) Author Type: Inspector Open Die Filed: 04/07/13905 Date of Service: 04/07/13903 Status: Signed Computer Sciences Professor: CLAIRE Lee (Inspector Open Die) CM met with pt for discharge planning. [...] follow as needed. Discharge Plan: Home. Colin Abraham CERAMIC WORKER 04/07/13 0902 Discharge Planning Evaluation Admitting Diagnosis [...] (none) Author Type: Physical Therapist Filed: 04/06/13 1605 Date of Service: 04/06/13 1522 Status: Signed Computer Sciences Professor: Jenny Vila PT (Physical Therapist) 04/06/13 1522 [...] pt as needed. Prior Function Level of [place] Modified independent with functional mobility;Assist with ADLs;Assist [...] Notes by Martha Dhaliwal RPH at 04/06/13 145 Author: Martha Dhaliwal RPH Service: (none) Author Type: Pharmacist Filed: 04/06/131455 Date of Service: 04/06/131455 Status: Signed Computer Sciences Professor: Martha Dhaliwal RPH (Pharmacist) Renal Dosing Monitoring: Thea Carmona 67 y.o. female Pharmacy dosing for renal function per Dr. Perry No current SCr. Plan per protocol: Unable to calculate CrCL . Pharmacy will continue monitoring patient for appropriate dosing per renal function. 04/06/2013 2:55 PM Pharmacist: Martha Dhaliwal docume nted in this encounter Miscellaneous Notes Op Note - Silviano Perry Jr. - 04/11/2013 9:47 PM PSTFormatting of this note might be diff erent from the original. Op Note signed by Silviano Perry MD at 04/14/13941 Author: Silviano Perry MD Service: (none) Author Type: Physician Filed: 04/14/13941 Date of Service: 04/11/132146 Status: Signed Computer Sciences Professor: Silviano Perry MD (Physician) THEA CARMONA Date of : 1945 PREOPERATIVE DIAGNOSIS Cervical stenosis, C4-5, C5-6. POSTOPERATIVE DIAGNOSIS Cervical stenosis, C4-5, C5-6. PROCEDURES 1. Posterior cervical bilateral laminar foraminotomy C4-5, C5-6. 2. Posterior cervical instrumentation NuVasive posterior cervical system, C4-5, C5-6. 3. Posterolateral fusion C4-5, C5-6. 4. [place] of subcutaneous fat graft with application of fat graft to laminar foraminotomy defects. 5. [place] of autograft. SURGEON Silviano Perry MD DISTRICT COURT JUSTICE RITA Rubio (Mr. Dalton was present for the entirety of the case secondary to the complex nature of the case and lack of qualified obstetric assistant) ANESTHESIA General endotracheal. ESTIMATED BLOOD LOSS Less than 100 mL. INDICATIONS Please see dictated preoperative H and P. DESCRIPTION OF PROCEDURE The patient succumbed to general anesthesia. She received antibiotics and was prepped and d raped in the usual sterile fashion after signing and preoperative timeout. A standard pilates instructor ior midline cervical incision was placed, after prepping and draping, guided by orthogonal x -ray. This was approximately 3 to 4 cm in length. Sharp and blunt dissection ensued with sub periosteal dissection and identification of the C4-5-6 vertebral bodies. This was corraborat ed by intraoperative x-ray. Subsequent bilateral lamino foraminotomies, after a retractor cintron d been placed, were performed bilaterally at C4-5, C5-6 with a high speed ginger and currette/ rongeurs. Ligamentum flavum, which was hypertrophic, was removed. There was no significant m obility through the joints at these levels. Combination of high speed bur as well as Kerriso n rongeur made several half-dime size laminal foraminotomies decompressing the axial nerve r oots. There was adequate reexpansion/decompression. On initial dissection, a 3 x 3 cm fat graft was harvested from the subcutaneous fat with co mbination of Metzenbaum scissors. This was thinned on the back table and prepared as well as well as soaked in antibiotic solution. This was placed in the open laminal foraminotomy def ects at C4-5 and C5-6. Subsequently, a drill was utilized in an up and out fashion to drill automatic pilot mechanic holes for the C4-5-6 laminar screws. C5-6 on one side and C4-5 on the opposite side we re placed with 2 screws on each side to span C4-5 levels. The bone was very poor quality and break out of the lateral masses necessitated only 2 screws each side. Posterolateral fusio n then ensued with sparing of the lamina and placement of bone graft with allograft as well as local autograft in and around the hardware. The screws were linked to the lara, locking ca ps placed. The bone was of very poor quality. Subsequently, a posterolateral fusion had been performed/completed and the wound was then closed in an interrupted fashion over the fascia with 0, 2-0, and 3-0. The patient tolerated the procedure well. A sterile dressing was maria carmen and she was taken to the recovery room in stable condition. P/ P/gf/[id number] SILVIANO PERRY MD lan of Care - Con[place] ro[place] Transaction, Provider Unknown - 04/08/2013 3:41 PM PST Plan of Care by BLAIR hCang at 04/08/131540 Author: BLAIR Chang Service: (none) Author Type: Occupational Therapist Filed: 04/08/131540 Date of Service: 04/08/131540 Status: Signed Computer Sciences Professor: BLAIR Chang (Occupational Therapist) Problem: UE Function Goal: STG - Introduce/reinforce UE exercises to enhance UE exercises to enhance ROM Goal status: Continue goal Problem: Self-care/Dynamic Activity Goal: STG - Address ADL concerns as they arise Goal Status: Continue goal Goal: STG - Introduce AE/AT To: for performance in daily tasks Goal status: Continue goal docume kimball in this encounter Plan of Treatment +--------+---------+ + + + | Date | Type | Specialty | Care Team | Description | +--------+---------+ + + + | 03/06/ | Office | Rheumatology | Santosh Sumner, | | | 2019 | Visit | | [address] | | | | | | [facility] | | | | | | [place] [address] | | | | | | [phone] | | | | | | | [...]
--- OUTSIDE RECORDS SUMMARY | ~2019-12-28 | XMS | Encounter Summary ---
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
Documentation filed: Rx Order VerificationElectronica lly signed by Hiral Dsouza RPH at 09/12/2014 1:02 PM PDTTreatment Plan - Sujata Baca RN - 09/12/2014 10:16 AM PDTViewed chart for weight, vital signs and lab results. Also vie wed chart for completion of medication and allergy review prior to chemotherapy administrati on.Sujata Leal RN DATE/TIME: 09/12/2014 10:16 documented in this en counter Plan of Treatment +--------+---------+ + + + | Date | Type | Specialty | Care Team | Description | +--------+---------+ + + + | 03/06/ | Office | Rheumatology | Santosh Sumner, | | | 2019 | Visit | | [address] | | | | | | [facility] | | | | | | [place] [address] | | | | | | [phone] | | | | | | | [...] + + + | White Blood | 2.5 (LL)Comment: | 4.0 - 11.0 K/uL | [facility] | | | Cells | Consistent with previous | | [facility] | | | | results. | | MEDICAL | | | | | | CENTER - | | | | | | LABORATORY | | + + + + + + | Red Blood | 3.19 (L) | 3.70 - 5.20 [...] [address] | [place] | [phone] | | [facility] | | [address] | | | - LABORATORY | | [...] mL/min/1.73m2 | [facility] | | | [place] | RATE,ESTIMATED | | MEDICAL | | | | mL/min/1.68b8Iwrc than | | CENTER - | | [...] | 8.7 | 8.3 - 10.5 | [facility] | [...] + + | [facility] | [address] | [place] | [phone] | | [facility] | | [address] | | | - LABORATORY | | [...]
--- OUTSIDE RECORDS SUMMARY | ~2019-12-28 | XMS | Encounter Summary ---
Demographics + + + | Address | [address] | | | [place] [address] | + + + | Home Phone [...] [address] | | | | | [address] | | + + + + + Care Team Providers + +------+ + | Care Business Management Specialist Name | Role | Phone | + +------+ + | Davis Ivan MD | PCP | | + +------+ + Reason for Visit + +--------+ + | Reason | Onset | Comments | | | Date | | + +--------+ + | Medication Refill | 12/31/ | | | | 2015 | | + +--------+ + Encounter Details +--------+--------+ + + + | Date | Type | Department | Care Team | Description | +--------+--------+ + + + | 12/31/ | Refill | [facility] | [facility] hernandez | Medication Refill | | 2015 | | MED CTR MEDICAL | P RN | | | | | [facility] [address] | | | | | | [address] | | | | | | [place] [address] | | | | | | [phone] | | | +--------+--------+ + + + [...] | 2019 | Visit | | [address] | | | | | | [place] | | | | | | [place] [address] | | | | | | [phone] | | | | | | | | +--------+---------+ + + + documented as of this encounter Visit Diagnoses + + | Diagnosis | + + | Gastroesophageal reflux disease without esophagitis - Primary Esophageal reflux | + + documented in this encounter"
--- OUTSIDE RECORDS SUMMARY | ~2019-12-28 | XMS | Encounter Summary ---
Demographics + + + | Address | [address] | | | [place] [address] | + + + | Home Phone [...] [place] | | | | | [address] | | + + + + + Care Team Providers + +------+ + | Care City Designer Name | Role | Phone | + +------+ + | Davis Ivan MD | PCP | | + +------+ + Encounter Details +--------+ + + + + | Date | Type | Department | Care Team | Description | +--------+ + + + + | 03/30/ | Hospital | [facility] | Conversion | | | 2012 | Encounter | [facility] | Transaction, | | | | | CLINIC [address] | Provider Unknown | | | | | [place], [place] | | | | | | [address] | (Fax) | | | | | [phone] | | | +--------+ + + + [...] +---------+--------+ + documented as of this encounter Procedure Notes Conversion Transaction, Provider Unknown - 03/30/2013 2:57 PM PDTFormatting of this note m ight be different from the original. Pre-Procedure Instructions by Alicia Reyes RN at 03/30/13 3351 Author: Alicia Reyes RN Service: Anesthesiology Author Type: Registered Nurse Filed: 03/30/13 7425 Date of Service: 03/30/131456 Status: Addendum Clay Miller: Alicia Reyes RN (Registered Nurse) Related Notes: Original Note by Alicia Reyes RN (Registered Nurse) filed at 03/30/13 9787 Surgery to finish cervical fusion. Concerns about heart so surgery stopped after anterior fusion in December 2012. Patient states the doctors decided that the EKG wires were being wig gled by surgeons hand, Patient will check with Dr. Ivan PCP about stopping plavix for this surgery also. On plavix due to stroke. Records requested from Dr. Perdomo, who did car diac workup for the fusion. Patient has COPD, does get shortness with exertion, walks with a cane. No chest pain. LVEF 77% on 09-14-2012. Skinny kimball in this encounter Plan of Treatment +--------+---------+ + + + | Date | Type | Specialty | Care Team | Description | +--------+---------+ + + + | 03/06/ | Office | Rheumatology | Santosh Sumner, | | | 2019 | Visit | | [address] | | | | | | [facility] | | | | | | [place] [address] | | | | | | [phone] | | | | | | | [...] EXTERNAL LAB | | Testing performed at [facility];[address];[place] [address] MRSA PCR | | | NEGATIVE Testing performed at | | | [facility];[address];[place] [address] | | + + + + +---------+ + + | Performing | Address | City/State/Zipcode | Phone Number | | Organization | | | | + +---------+ + + | EXTERNAL LAB | | | | + +---------+ + + documented in this encounter Visit Diagnoses Not on filedocumented in this encounter"
--- OUTSIDE RECORDS SUMMARY | ~2019-12-28 | XMS | Encounter Summary ---
Demographics + + + | Address | [address] | | | [place] [address] | + + + | Home Phone [...] [address] | | | | | [address] | | + + + + + Care Team Providers + +------+ + | Care Fitter And Turner Name | Role | Phone | [...] MD | obstructive | | | | [place], | | pulmonary disease) | | | | [place] [address] | | (HCC) (Primary Dx); | | | | [phone] | | Lung mass | +--------+ + [...] | 2019 | Visit | | [address] | | | | | | [place] [address] | | | | | | [place] [address] | | | | | | [phone] | | | | | | | [...]
--- OUTSIDE RECORDS SUMMARY | ~2019-12-28 | XMS | Encounter Summary ---
Demographics + + + | Address | [address] | | | [place] [address] | + + + | Home Phone [...] [address] | | | | | [address] | | + + + + + Care Team Providers + +------+ + | Care Animal Tech Name | Role | Phone | + +------+ + PCP | Unavailable | + +------+ + Encounter Details +--------+ + + + + | Date | Type | Department | Care Team | Description | +--------+ + + + + | 01/13/ | Hospital | [facility] | Conversion | | | 2012 | Encounter | CENTER [facility] | Transaction, | | | | | CLINIC [address] | Provider Unknown | | | | | [address] [place], [place] | | | | | | [address] | | | | | | [phone] | | | +--------+ + + + [...] | 2019 | Visit | | [address] | | | | | | [facility] | | | | | | [place] [address] | | | | | | [phone] | | | | | | | [...] | ECG 12 LEAD | Routin | 01/13/2013 | | Results for this | | | e | 2:27 PM | | procedure are in the | | | | PDT | | results section. | + +--------+ + + + documented in this encounter Results XR Chest 2 Vws (01/13/2013 3:20 PM PDT) + + | Specimen | + + | | + + + + + | Narrative | Performed At | + + + | TENA CARMONA XR CHEST 2 VIEW FRONTAL AND [...] Fabián, Rad Conversion - 01/21/2019 4:40 PM PDT TENA CARMONAXR CHEST 2 VIEW FRONTAL | | AND [...] EXTERNAL LAB | | Testing performed at [facility] [place] [address];[place] [address] MRSA PCR | | | NEGATIVE Testing performed at | | | [facility];[address] [place] [address];[place] [address] | | + + + + +---------+ + + | Performing | Address | City/State/Zipcode | Phone Number | | Organization | | | | + +---------+ + + | EXTERNAL LAB | | | | + +---------+ + + ECG 12 lead (01/13/2013 2:27 PM PDT) + + + + + + | Component | Value | Ref Range | Performed | Pathologist | | | | | At | Signature | + + + + + + | DIAGNOSIS: | Normal sinus | | EXTERNAL | | | | rhythmNormal ECGNo | | LAB | | | | previous ECGs | | | | | | availableConfirmed by | | | | | | MASON EUBANKS ([id number]) on | | | | | | 01/13/2013 11:48:34 PM | | | | + + + + + + + + | Specimen | + + | | + + + + + | Narrative | Performed At | + + + | Historically converted procedure from [facility] | EXTERNAL LAB | + + + + +---------+ + + | Performing | Address | City/State/Zipcode | Phone Number | | Organization | | | | + +---------+ + + | EXTERNAL LAB | | | | + +---------+ + + documented in this encounter Visit Diagnoses Not on filedocumented in this encounter"
--- OUTSIDE RECORDS SUMMARY | ~2019-12-28 | XMS | Encounter Summary ---
Demographics + + + | Address | [address] | | | [place] [address] | + + + | Home Phone [...] [place] | | | | | [address] | | + + + + + Care Team Providers + +------+ + | Care Cotton Broker Name | Role | Phone | + +------+ + | Davis Ivan MD | PCP | | + +------+ + Encounter Details +--------+ + + + + | Date | Type | Department | Care Team | Description | +--------+ + + + + | 07/03/ | Hospital | [facility] | Jimmy Banegas DO | | | 2016 | Encounter | MED CTR RADIATION | [address] | | | | | ONCOLOGY [address] | [place] | | | | | [place], | [address] | | | | | [place] [address] | | | | | | [phone] | | | +--------+ + + + [...] DO - 07/03/2015 12:00 AM PSTPATIENT: Thea Mullen:07/03/2015#: [id number] :1945 Radiation Oncology Follow-up Clinic Note ICD/Diagnosis: 162.5 - Malignant neoplasm of lower lobe, bronchus or lung, Diagnosed 07/21/2013 (Active) CC: José Miguel Mace M.D. Davis Ivan M.D. Ayana Taylor M.D. Lokesh Park M.D. Chief Complaint/History of Present Illness: Lung cancer I had the pleasure of seeing Thea Carmona today in clinic. She is a 69-year-old woman [facility] who was previously being diagnosed with [...] Ib(pT2a,pN0,M0). She was later reevaluated at the [facility] multidisciplinary thoracic conference due to an enlarging [...] A PET sca n was performed at [facility] on June 27, 2015 confirming an [...] 0 = no pain and 10= worst [id number] your pain (quality) i.e. aching, s harp, [...] SACHIR Radiation Oncologist Department of Radiation Oncology [facility] This note was transcribed using Conspire speech recognition software. As a result, there ma y be unintended for medical and/or spelling errors. Every attempt is made to correct dicta tion. If there are any questions or errors please contact our office. Page 1 of 3 CSN: [id number] signed by Jimmy Banegas DO at 07/05/2015 2:42 PM Carisa chen in this encounter Plan of Treatment +--------+---------+ + + + | Date | Type | Specialty | Care Team | Description | +--------+---------+ + + + | 03/06/ | Office | Rheumatology | Santosh Sumner, | | | 2019 | Visit | | [address] | | | | | | [place] | | | | | | [place] [address] | | | | | | [phone] | | | | | | | | +--------+---------+ + + + documented as of this encounter Visit Diagnoses Not on filedocumented in this encounter"
--- OUTSIDE RECORDS SUMMARY | ~2019-12-28 | XMS | Encounter Summary ---
Demographics + + + | Address | [address] | | | [place] [address] | + + + | Home Phone [...] [address] | | | | | [address] | | + + + + + Care Team Providers + +------+ + | Care Figurine Maker Name | Role | Phone | + +------+ + | Davis Ivan MD | PCP | | + +------+ + Reason for Visit +---------+--------+ + | Reason | Onset | Comments | | | Date | | +---------+--------+ + | Results | 06/14/ | nocturnal oximetry | | | 2015 | | +---------+--------+ + Encounter Details +--------+ + + + + | Date | Type | Department | Care Team | Description | +--------+ + + + + | 06/14/ | Telephone | [facility] | Claudia, | Results (nocturnal | | 2015 | | PULMONARY [address] | Ayana Looney MD | oximetry) | | | | [place], | | | | | | [place] [address] | | | | | | [phone] | | | +--------+ + + + [...] Telephone Encounter - Sara Evans RN - 06/14/2015 2:33 PM PSTCalled Stephanie and omar john per Dr Taylor that her nocturnal pulse oximetry performed on room air looks okay and no night time O2 is needed. Okay per patient. documented in this encounter Plan of Treatment +--------+---------+ + + + | Date | Type | Specialty | Care Team | Description | +--------+---------+ + + + | 03/06/ | Office | Rheumatology | Santosh Sumner, | | | 2019 | Visit | | [address] | | | | | | [place] | | | | | | [place] [address] | | | | | | [phone] | | | | | | | | +--------+---------+ + + + documented as of this encounter Visit Diagnoses Not on filedocumented in this encounter"
--- OUTSIDE RECORDS SUMMARY | ~2019-12-28 | XMS | Encounter Summary ---
Demographics + + + | Address | [address] | | | [place] [address] | + + + | Home Phone [...] [place] | | | | | [address] | | + + + + + Care Team Providers + +------+ + | Care Retort Engineer Name | Role | Phone | [...] + + | 01/20/ | Office | [facility] | Alfredenstein, | COPD (chronic | | 2013 | Visit | PULMONARY [address] | Ayana Looney MD | obstructive | | | | [place], | | pulmonary disease) | | | | [place] [address] | | (Primary Dx); [place] | | | | [phone] | | (obstructive sleep | | | [...] exercising regularly. They are looking in to certified adaptive physical educator apy, such as water therapy. She does [...] [facility]) on prednisone and methotrexate, Dr. 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 Respiratory Therapy Supplies MISC Respironics autotitrating CPAP at 5-9 cm H2O for life time. Mask, headgear, chin strap, hoses, humidifier chamber and filters. Dx: 327.23 1 each 0 Respiratory Therapy Supplies MISC ResMed S9 auto [...] made to ensure accuracy; however, inadvertent computerized sharepoint designer developer errors may be pre sent. Electronically signed by: Ayana Taylro MD 01/20/2014 14:53 documented in t his encounter Plan of Treatment +--------+---------+ + + + | Date | Type | Specialty | Care Team | Description | +--------+---------+ + + + | 03/06/ | Office | Rheumatology | Santosh Sumner, | | | 2019 | Visit | | [address] | | | | | | [facility] | | | | | | [place] [address] | | | | | | [phone] | | | | | | | | +--------+---------+ + + + documented as of this encounter Results PFT PULMONARY FUNCTION TESTING ORDERS Full PFT (Barclay w/BD, lung volumes, diffusion)?: Yes (02/09/2014 9:04 [...] Ayana Taylor MD 02/09/2014 9:00 [facility] | [facility] CC: Davis Ivan | | + [...] by: Ayana Taylor MD 02/09/2014 | [facility] Davis [facility] | |[facility] | | | |CC: Davis Ivan [...]
--- OUTSIDE RECORDS SUMMARY | ~2019-12-28 | XMS | Encounter Summary ---
Demographics + + + | Address | [address] | | | [place] [address] | + + + | Home Phone [...] [place] | | | | | [address] | | + + + + + Care Team Providers + +------+ + | Care Size Changer Name | Role | Phone | + [...] | | | [address] | [place] [address] | | | | | [place] [address] | | | | | | [phone] | | | +--------+ + + + [...] | 2019 | Visit | | [address] | | | | | | [place] | | | | | | [place] [address] | | | | | | [phone] | | | | | | | [...]
--- OUTSIDE RECORDS SUMMARY | ~2019-12-28 | XMS | Encounter Summary ---
Demographics + + + | Address | [address] | | | [place] [address] | + + + | Home Phone [...] [place] | | | | | [address] | | + + + + + Care Team Providers + +------+ + | Care Straightener Gun Parts Name | Role | Phone | + [...] | | Disease / | Chronic | [facility] | Gurmeet Alvarenga MD | | | | Pulmonology | obstructive | MD [address] | [address] | | | | | pulmonary | [address] | [place], [place] | | | | | disease, | [address] | [address] | | | | | unspecified | [place], | Phone: | | | | | ([facility]) | [place] | [phone] | | | | | Procedures | [address] | Fax: | | | | | FU | Phone: | [phone] | | | | | | [phone] | | | | | | | Fax: | | | | | | | [phone] | | +--------+--------+ + + + + Encounter Details +--------+---------+ + + + | Date | Type | Department | Care Team | Description | +--------+---------+ + + + | 11/19/ | Office | [facility] | Gurmeet Vargas, | Chronic obstructive | | 2018 | Visit | PULMONARY [address] | [address] | bronchitis (HCC) | | | | [place], | [place] [address] | (Primary Dx); | | | | [place] [address] | [phone] | History of lung | | | | [phone] | | cancer; Chronic | | | [...] stayed in the hospital 11 days at [facility] in [place] in June 2017, she says. After dave [...] She tells me she sees him at [facility], so it is not in our medical [...] | 2019 | Visit | | [address] | | | | | | [facility] | | | | | | [place] [address] | | | | | | [phone] | | | | | | | [...]
--- OUTSIDE RECORDS SUMMARY | ~2019-12-28 | XMS | Encounter Summary ---
Demographics + + + | Address | [address] | | | [place] [address] | + + + | Home Phone [...] [address] | | | | | [address] | | + + + + + Care Team Providers + +------+ + | Care Sanitation Truck Cleaner Name | Role | Phone | + +------+ + PCP | Unavailable | + +------+ + Encounter Details +--------+ + + + + | Date | Type | Department | Care Team | Description | +--------+ + + + + | 01/12/ | Hospital | [facility] | Conversion | Pain | | 2013 | Encounter | [address] | Transaction, | | | | [address] | Provider Unknown | | | | | [place], [place] | [phone] | | | | | [address] | | | | | | [phone] | | | +--------+ + + + [...] | 2019 | Visit | | [address] | | | | | | [facility] | | | | | | [place] [address] | | | | | | [phone] | | | | | | | [...]
--- OUTSIDE RECORDS SUMMARY | ~2019-12-28 | XMS | Encounter Summary ---
Demographics + + + | Address | [address] | | | [place] [address] | + + + | Home Phone [...] [place] | | | | | [address] | | + + + + + Care Team Providers + +------+ + | Care Cnc Operator Machinist Name | Role | Phone | + +------+ + | Davis Ivan MD | PCP | | + +------+ + Encounter Details +--------+ + + + + | Date | Type | Department | Care Team | Description | +--------+ + + + + | 08/11/ | Hospital | [facility] | Conversion | Pain | | 2014 | Encounter | [address] | Transaction, | | | | | [address] | Provider Unknown | | | | | [place] | [phone] | | | | | [address] | | | | | | [phone] | | | +--------+ + + + [...] | 2019 | Visit | | [address] | | | | | | [facility] | | | | | | [place] [address] | | | | | | [phone] | | | | | | | [...]
--- OUTSIDE RECORDS SUMMARY | ~2019-12-28 | XMS | Encounter Summary ---
Demographics + + + | Address | [address] | | | [place] [address] | + + + | Home Phone [...] [place] | | | | | [address] | | + + + + + Care Team Providers + +------+ + | Care Network Systems Integrator Name | Role | Phone | + [...] Arthroplasty | | | | [address] | [place], [place] | | | | | [place], [place] | [address] | | | | | [address] | | | | | | [phone] | | | +--------+---------+ + + + [...] + + + | Blood Pressure | 100/50 | 10/27/2017 11:30 AM | | | | | PDT | | + + + + + | Pulse | 63 | 10/27/2017 11:30 AM | | | | | PDT | | + + + + + | Temperature | 37.4 C (99.3 F) | 10/27/2017 11:20 AM | | | | | PDT | | + + + + + | Respiratory Rate | 17 | 10/27/2017 11:30 AM | | | | | PDT | | + + + + + | Oxygen Saturation | 92% | 10/27/2017 11:30 AM | | | | | PDT [...] | | | | type ([facility]) | | | | | | + [...] might be di fferent from the original. [facility] HISTORY AND PHYSICAL EXAMINATION Pt. 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 Lewis [place] Spinal stenosis has tried cortisone injections Spondylolisthesis of cervical region Sputum culture positive for Scopulariopsis species Squamous cell carcinoma of lung (HCC) 07/2013 right lower lobe Stroke (HCC) 2006 Stroke (HCC) 2007 Upper GI bleed 06/[address] [facility] [facility] Past Surgical History: Procedure Laterality Date BACK SURGERY 03/2014 BLADDER SUSPENSION BRONCHOSCOPY 07/11/2014 EBUS with right hilar LN biopsy, [facility] Dr. Sierra CERVICAL SPINE SURGERY 2012 CHOLECYSTECTOMY COLONOSCOPY 06/2014 ENDOSCOPY HAND ARTHROPLASTY Left 03/20/2015 Procedure: Left 1st C.M.C. 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 Jadiel mented in this encounter Plan of Treatment +--------+---------+ + + + | Date | Type | Specialty | Care Team | Description | +--------+---------+ + + + | 03/06/ | Office | Rheumatology | Santosh Sumner, | | | 2019 | Visit | | [address] | | | | | | [facility] | | | | | | [place] [address] | | | | | | [phone] | | | | | | | [...] | +---+--------+ documented in this encounter Results FL C-Arm Stats No Charge (10/27/2017 11:14 AM PDT) [...] PDT | | | | | Starting Thu10/27/17 at 0859, | | | | | [...] ONCE PRN, Wheezing, | | | Starting Thu10/27/17 at 1114, | | | For 1 [...] PRN, Pain, pain, | | | Starting e 10/27/17 at 0859, Max | | | [...] 10:38 | | | Site | | 10/27/17 at 1038, Intra-op | | AM PDT | | | | + +-------+ +--------+---+ + +---+---+ | | | +---+---+ documented in this encounter
--- OUTSIDE RECORDS SUMMARY | ~2019-12-28 | XMS | Encounter Summary ---
Demographics + + + | Address | [address] | | | [place] [address] | + + + | Home Phone [...] [place] | | | | | [address] | | + + + + + Care Team Providers + +------+ + | Care Oil Seal Assembler Name | Role | Phone | [...] + + + | Closed | | Cardiology | Diagnoses | [place], | [place], | | | | | Other forms | Caitlin Mccray MD | MD Yadira | | | | | of dyspnea | [address] | [address] | | | | | Procedures | [place] | [place] | | | | | Consult | [place], | [place], [place] | | | | | | [place] [address] | [address] Phone: | | | | | | Phone: | [phone] | | | | | | [phone] | Fax: | | | | | | Fax: | [phone] | | | | | | [phone] | | +--------+--------+ + + + + Encounter Details +--------+---------+ + + + | Date | Type | Department | Care Team | Description | +--------+---------+ + + + | 03/10/ | Office | [facility] | Anisha Lopez DO | Hypokalemia (Primary | | 2019 | Visit | CARDIOLOGY [place] | [address] | Dx); Paroxysmal | | | | [address] | [place], [place] | atrial fibrillation | | | | [address] | [address] | (HCC); Essential | | | | [place], [place] | | hypertension; | | | | [address] | | Cerebrovascular | | | | [phone] | | accident (CVA), | | | [...] encounter Progress Notes Anisha Lopez DO - 03/10/2019 3:20 PM PDT [facility] Cardiology Cardiology Follow Up Note Reason for [...] above past medical history. She presents to [facility] cardiology office for initial consultation regarding [...] on following up with jamilah murphy in [place]. She continues to have issues with dyspnea [...] (HCC) 05/03/2018 RA (rheumatoid arthritis) (HCC) Stroke ([facility]) 2004 Thyroid disease Unspecified visual disturbance glasses Past Surgical History Procedure Laterality Date BACK SURGERY BLADDER SUSPENSION 2000 CATARACT EXTRACTION CAUDAL BLOCK 07-15-12 Caudal w/ cath target Right L5, S1 CERVICAL FUSION N/A 04/06/2013 Procedure: CERVICAL - FUSION - POSTERIOR; Surgeon: Silviano Cabrera MD; Location: [facility]; Service: Ortho/Spine; Laterality: N/A; C4-6 & decompression CERVICAL FUSION N/A 01/19/2013 Procedure: CERVICAL - DISC & FUSION - ANTERIOR; Surgeon: Silviano Cabrera MD; Location: [facility] OR; Service: Orthopedics; Laterality: N/A; C4-6 CHOLECYSTECTOMY 2000 COLONOSCOPY EYE SURGERY FINGER SURGERY 12-02-11 Thumb HAND SURGERY HARDWARE REMOVAL HYSTERECTOMY 1974 ovaries removed LUMBAR DECOMPRESSION & FUSION N/A 03/31/2014 Procedure: LUMBAR - DECOMPRESSION & FUSION; Surgeon: Silviano Cabrera MD; Location: [facility] OR; Service: Ortho/Spine; Laterality: N/A; LUMBAR EPIDURAL INJECTION 05-27-12 Right L5 TFESI target Right S1 LUMBAR FUSION N/A 03/31/2014 Procedure: LUMBAR - FUSION - POST; Surgeon: Silviano Cabrera MD; Location: [facility] OR; Service: Ortho/Spine; Laterality: N/A; L 4/S1 LUMBAR FUSION N/A 03/29/2014 Procedure: LUMBAR - FUSION - ANTERIOR; Surgeon: Silviano Cabrera MD; Location: [facility]; Service: Ortho/Spine; Laterality: [...] | 2019 | Visit | | [address] | | | | | | [facility] | | | | | | [place] [address] | | | | | | [phone] | | | | | | | [...]
--- OUTSIDE RECORDS SUMMARY | ~2019-12-28 | XMS | Encounter Summary ---
Demographics + + + | Address | [address] | | | [place] [address] | + + + | Home Phone [...] [place] | | | | | [address] | | + + + + + Care Team Providers + +------+ + | Care Internal Control Manager Name | Role | Phone | [...] | Closed | | | Diagnoses | Moncho, | Marco | | | | | Rheumatoid | Davis | Rheumatology | | | | | arthritis, | MD [address] | [address] | | | | | unspecified | [address] | [place] [facility] | | | | | ([facility]), | [address] | [place], [place] | | | | | Billed out | [place], | [address] | | | | | for M13.00 | [place] | Phone: | | | | | | [address] | [phone] | | | | | | Phone: | Fax: | | | | | | [phone] | [phone] | | | | | | Fax: | | | | | | | [phone] | | +--------+--------+ + + + + Encounter Details +--------+---------+ + + + | Date | Type | Department | Care Team | Description | +--------+---------+ + + + | 05/30/ | Office | [facility] | Santosh Sumner, | Rheumatoid | | 2019 | Visit | RHEUMATOLOGY [address] | [place] [address] | arthritis, involving | | | | [facility] [address] | [address] | unspecified site, | | | | [place], [place] | [place] [address] | unspecified | | | | [address] | [phone] | rheumatoid factor | | | | [phone] | | presence (HCC) | | | [...] + + + | Blood Pressure | 146/75 | 05/30/2019 1:04 PM | | | | | PST | | + + + + + | Pulse | 75 | 05/30/2019 1:04 PM | | | | | PST | | + + + + + | Temperature | 36.4 C (97.6 F) | 05/30/2019 1:04 PM | | | | | PST [...] | Weight | 68.3 kg (150 lb 9.6 | 05/30/2019 1:04 PM | | | | oz) | PST | | + + + + + | Height | - | - | | + + + + + | Body Mass Index | 27.55 | 04/19/2019 2:49 PM | | | [...] encounter Patient Instructions Patient Instructions Duyen Gonsalves, Piercing Artist - 05/30/2019 1:50 PM PSTWe hop e that you have experienced exceptional care today and that you found our service to be cour teous and helpful. ? If you have any questions/concerns or need medication refills you can send us a message/r equest using [employer] or by calling our office at [phone]. o If you would like to reach my medical office professional instructor, Eileen Gonsalves please call [phone] Ext: [phone] ? If you are unable to reach [...] can also look at your results on [employer]. If you are experiencing an emergency, please call 911 documented in this encounter Progress Notes Santosh Sumner PA-C - 05/30/2019 1:50 PM PSTFormatting of this note might be different f [...] cancer: She is a 69-year-old woman from [facility] who was previously being diagnosed with mo [...] doing better Interval History: 02/22/2019:The patient states that she has had some more aches in general that are worse in the evening and better with rest. She states her shoulders, back and knee s have been aching. She denies any significant swelling or stiffness. She states that in the morning she is doing okay and that its as she gets going and or the cold hurts her. Last Seen On: 02/22/2019 by Santosh Sumner PA-C Today's Date: 05/30/2019 Any changes in overall health since last visit: No Current rheumatological medications: 15mg Methotrexate weekly with 1mg Folic Acid daily Current chief complaint: The patient states that she was in the ER and had a PE and was dis charged the 12 of May. She put her on warfrin. She states that she still has the clot . She states she had a colonscopy and that's when she develpoped a PE. She is having some tr ouble breathing Rating Scale: 3 Morning stiffness lasting: <30 Minutes Quality: Stiff [...] Negative for fever. HENT: Negative for mouth sores and sore throat. Eyes: Negative for pain and redness. Respiratory: Positive for shortness of breath. Negative for cough. Cardiovascular: Negative for chest pain. Gastrointestinal: Negative for abdominal pain and blood in stool. Genitourinary: Negative for dysuria and hematuria. Musculoskeletal: Negative for arthralgias and joint swelling. Skin: Negative for rash. Neurological: Negative for numbness and headaches. Psychiatric/Behavioral: The patient is not nervous/anxious. Santosh Gu PA-C, reviewed the above ROS. Past Medical History: Diagnosis Date Acid reflux disease Acute recurrent pansinusitis Acute sinusitis 09/14/2013 AF (paroxysmal atrial fibrillation) ([facility]) Alcohol abuse quit in 05/2012; 40 year habit Anemia Angina of effort ([facility]) Arrhythmia Arthritis Bursitis of left shoulder Conjunctivitis COPD (chronic obstructive pulmonary disease) ([facility]) on albuterol COPD exacerbation ([facility]) Depression HONG (dyspnea on exertion) Folliculitis Full dentures upper & lower GERD (gastroesophageal reflux disease) Hemorrhoids, internal, with bleeding Hx of blood clots Hyperlipidemia on simvastatin Hypertension on clonidine and lisinopril Hypothyroidism 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 Lewis Boomer Right wrist pain Spinal stenosis has tried cortisone injections Spondylolisthesis of cervical region Sputum culture positive for Scopulariopsis species Squamous cell carcinoma of lung ([facility]) 07/2013 right lower lobe Stroke ([facility]) 2006 Stroke ([facility]) 2007 left sided weakness Thyroid disease Unspecified visual disturbance Upper GI bleed 06/2014 admitted [facility] Vitamin D deficiency Wears dentures Current Outpatient Medications: afatinib (GILOTRIF) 30 mg tablet, Take 30 mg by mouth every morning (before breakfast) ., Disp: , Rfl: albuterol-ipratropium 2.5-0.5 mg/3 mL SOLN, Take 3 mLs by nebulization 4 times daily. 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 Social Needs Financial resource strain: Not on file Food insecurity: Worry: Not on file Inability: Not on file Transportation needs: Medical: Not on file Non-medical: Not on file Tobacco Use Smoking status: Former Smoker Packs/day: 1.00 Years: 50.00 Pack years: 50.00 Types: Cigarettes Start date: 03/08/1952 Last attempt to quit: 07/24/2016 Years since quittin.8 Smokeless tobacco: Never Used Substance and Sexual [...] file Gets together: Not on file Attends taoist service: Not on file Active member of [...] on file Social History Narrative Lives: in [place] With: alone [place] [facility] Exposure to toxic chemicals: no Exposure to asbestos: no Exposure to tuberculosis: no Has had a PPD or Quantiferon before: no Has pets at home: cat and a dog Has ever owned birds: yes, 5 years ago Other animal exposures: no Hobbies: used to jaja, crossword puzzles, walking her dog No Known Allergies Objective: BP 146/75 | Pulse 75 | Temp 36.4 C (97.6 F) (Temporal) | Wt 68.3 kg (150 lb 9.6 oz) | No | BMI 27.55 kg/m Physical Exam Constitutional: General: She is [...] sounds: Rhonchi present. No wheezing or rales. Musculoskeletal: Comments: MCPs: Negative PIPs: Carlos nodes [...] 360 hour(s)). Laboratory results were reviewed in [facility] as well as chart notes and [...] acupunct ure which I sent in. She was recently in the ER with a PE due to being off the warfarin. She is now back on the medication and was discharged. We will request all chart notes Discussed risks and benefits of this medication. [...] and may produce reversible infertility in men. Other High risk medication use The patient [...] involved in today's visit. Procedure Documentation: Procedures docunitesh d in this encounter Miscellaneous Notes Assessment & Plan Note - Santosh Sumner PA-C - 05/30/2019 12:17 PM PSTAssociated Problem( s): High risk medication useThe patient [...] Plan Note - Santosh Sumner PA-C - 05/30/2019 12:17 PM PSTAssociated Pr oblem(s): Rheumatoid arthritis The patient returns to the clinic for a follow up appointment . She is on 15mg Methotrexate weekly with 1mg Folic Acid daily and doing well. She is reques ting a referral for acupuncture which I sent in. She was recently in the ER with a PE due to being off the warfarin. She is now back on the medication and was discharged. We will reque st all chart notes Discussed risks and benefits of this medication. [...] infertility in men. Kira prather signed by Santosh Sumner PA-C at 05/30/2019 1:45 PM PSTdocumented in this encounter Plan of Treatment +--------+---------+ + + + | Date | Type | Specialty | Care Team | Description | +--------+---------+ + + + | 03/06/ | Office | Rheumatology | Santosh Sumner, | | | 2019 | Visit | | [address] | | | | | | [facility] | | | | | | [place] [address] | | | | | | [phone] | | | | | | | [...]
--- OUTSIDE RECORDS SUMMARY | ~2019-12-28 | XMS | Encounter Summary ---
Demographics + + + | Address | [address] | | | [place] [address] | + + + | Home Phone [...] [place] | | | | | [address] | | + + + + + Care Team Providers + +------+ + | Care Iphone Developer Name | Role | Phone | + +------+ + | Davis Ivan MD | PCP | | + +------+ + Encounter Details +--------+ + + + + | Date | Type | Department | Care Team | Description | +--------+ + + + + | 04/13/ | Hospital | [facility] | Offenstein, | Pulmonary nodule | | 2012 | Encounter | [facility] | Ayana Looney MD | | | | | [address] | | | | | | [place] | | | | | | [address] | | | | | | [phone] | | | +--------+ + + + [...] | 2019 | Visit | | PA-C [address] | | | | | | [facility] | | | | | | [place] [address] | | | | | | [phone] | | | | | | | [...] Performed At | + + + | [facility] | [facility] | | Department [address] [facility] | [facility] | | [ rep [address]] [ rep ct [facility] | | st zip] Signed | - IMAGING | | | | | Patient Name: TENA CARMONA Physician: | | | OFFE. : 1945 Age: 67 Sex: F Unit #: [id number] | | | Exam Date: 04/13/13 Location: LAB | | | Report #: [id number] Page: | | | %(RAD)RES..mtdd.print.filter("pg") of %(RAD) | | | RES..mtdd.print.filter("tpg") | | | | | | Accession Number: [id number] | | | CHEST, PA AND LATERAL, [...] | | | Transcribed Date/Time: 04/13/2013 17:08 Air Bag Curer: | | | REBECCA <<Signature on File>> | | | Matheus | | | MD Kang04/13/13 1818 <Electronically signed by Matheus Kapadia MD> | | | Matheus Kapadia MD 04/13/13 [id number] Air Bag Curer: [employer] | | | [email or web address]/13/13 4704 Ayana Taylor MD | | | | | + + + + + + + + | Performing | Address | City/State/Zipcode | Phone Number | | Organization | | | | + + + + + | [facility] | [address] | [place] | [phone] | | [facility] | | [id number] | | | - IMAGING | | [...] | | Phosphatase | | | [facility] | | [...] INDIRECT | = CONJUGATED | mg/dL | [facility] | | | | INDIRECT BILI = [...] + | [facility] | [address] | [place], [place] | [phone] | | [facility] | | [address] | | | - LABORATORY | | | | + + + + + | [facility] | [address] | [place], [place] | | | [facility] | | [id number] [place] [address] | | | - LABORATORY | | | | + + + + + documented in this encounter Visit Diagnoses + + | Diagnosis | + + | Pulmonary nodule Solitary pulmonary nodule | + + documented in this encounter
--- OUTSIDE RECORDS SUMMARY | ~2019-12-28 | XMS | Encounter Summary ---
Demographics + + + | Address | [address] | | | [place] [address] | + + + | Home Phone [...] [place] | | | | | [address] | | + + + + + Care Team Providers + +------+ + | Care Landscape Architecture Professor Name | Role | Phone | [...] | | bronchus and | [address] | [address] | | | | | lung, | [place] | [place], | | | | | unspecified | [place], [place] | [place] [address] | | | | | site | [address] | Phone: | | | | | Procedures | Phone: | [phone] | | | | | CHG | [phone] | Fax: | | | | | [place] | Fax: | [phone] | | | | | NGEMENT,5 | [phone] | | | | | | TX'S [...] + + | 08/22/ | Hospital | [facility] | Jimmy Banegas DO | | | 2013 | Encounter | MED CTR RAD[facility]ATION | [address] | | | | | ONCOLOGY [address] | [place] | | | | | [place], | [address] | | | | | [place] [address] | | | | | | [phone] | | | +--------+ + + + [...] +---------+--------+ + documented as of this encounter Consult Notes Jimmy Banegas, DO - 08/22/2013 12:00 AM PDTPATIENT: Thea Mary Sebas:08/22/2013#: [id number] :1945 New Patient Evaluation/Consultation Note ICD-9/Diagnosis: 162.5 - Malignant neoplasm of lower lobe, bronchus or lung, Diagnosed 07/21/2013 (Active) CC: Ja Rushing M.D. Namrata Sethi, M.D. field technical specialist Chief Complaint/History of Present Illness: Primary 162.5 - Malignant neoplasm of lower lobe, bronchus or lung, Diagnosed 07/21/2013 (A ctive) Lung cancer I had the pleasure of seeing Thea Carmona today in clinic. This history was obtained thr ough direct interview, review of outside an old records to include a personal review of jigar ropriate imaging. She is a pleasant 68-year-old woman from [facility] who was initial ly being evaluated for a cervical spine surgery when imaging performed preoperatively demon strated a suspicious right lung nodule. A diagnostic CT of the chest was performed on 2012 after an January 07, 2013 CT study demonstrated a 1.4 x 1.8 cm cavitary lesion in the superior segment right lower lobe that currently measured 2.1 x 1.6 x 1.4 cm and was d escribed as a thick walled cyst with a spiculated soft tissue density measuring 3.3 cm x 1. 8 x 0.7 cm located just beneath the cystic portion. She underwent a PET scan on March 11, 2013 they reveal an SUV of 3.7 within the area of the nodule. She was then seen by on March 30, 2013 for pulmonary consultation. Consideration for infection or in flammatory etiology was initially suspected. She was found to be negative for Aspergillus, Coccidioides, and TB. She was treated empirically with antifungal medication due to the ris k of biopsy from possible pneumothorax while on anti-rheumatoid arthritis treatment. 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 Fernando mares underwent a right lower lobe biopsy at [facility] on July 21, 2013 that dem onstrated moderately differentiated squamous cell carcinoma. On August 11, 2013 she underwen t a restaging PET/CT to confirm continued growth of the lesion measuring 3.1 x 2.1 cm with a maximum SUV of 6.26 with an additional correlating right hilar lymph node measuring 0.9 c m with a maximum SUV of 4.46. She was overall staged as stage IIa (T2a, N0, M0) moderately differentiated squamous carcinoma. I do not have records of current PFTs. She has baseline dyspnea on exertion but is able to walk a flight of stairs without stopping. She denies an y symptoms of hemoptysis, chest pain, weight loss, or unexplained fever or chills. Thea Carmona is seen today as a new patient evaluation at the request of Dr. Lu for th e evaluation and consideration of external beam radiation therapy as a nonsurgical option f or the treatment of her newly diagnosed non-small cell lung cancer. Review of Systems: ROS ConstitutionalAbnormal - Complains of a poor appetite eating 1 meal per day. Complains of moderate fatigue. Complains of night sweats which occur every night. Complains of ascencio e in weight gained 30 lbs in last year. Denies fever, lethargy, malaise and rigors / chills .ROS Allergic/ImmunologicAbnormal - Complains of allergies and adverse reactions.ROS HeadNo rmal - Denies alopecia.ROS EyesAbnormal - Complains of an absence of lacrimation relieves with eye drops. Denies blurred vision, double vision, night blindness, visual difficulties and photophobia.ROS ENMTAbnormal - Complains of mild epistaxis that began recently and usua lly requires packing or cauterization. Complains of moderate mouth dryness lasting all day. Denies dysphagia, ear pain, esophagitis, problems with hearing, oral bleeding, otitis, sin usitis, sputum production, altered taste and tinnitus.ROS NeckNormal - Denies neck masses, muscle weakness, neck pain, decreased range of motion and swelling of the neck. ROS Integu mentaryAbnormal - Complains of bruising due to use of Plavix/Aspirin. Complains of moderate ly dry skin. Complains of significant nail changes with noted brittleness ridges. Denies al opecia, blistering, photosensitivity, pruritus, rash and urticaria.ROS BreastsNormal - Andrés es breast masses, nipple discharge, nipple inversion and pain.ROS Cardiovascular Normal - Denies arrhythmias, chest pain, dyspnea, edema, orthopnea and palpitations.ROS RespiratoryA bnormal - Complains of a moderate cough which is productive. Complains of moderate dyspnea associated with rest. Complains of moderate wheezing. Denies hemoptysis, hiccoughs and pleu ritic chest pain.ROS GastrointestinalAbnormal - Complains of constipation occasional due to use of pain meds, otc meds relieve. Complains of moderate heartburn / dyspepsia Prilosec helps. Denies abdominal pain, change in bowel habits, diarrhea, hematemesis, hematochezia, hemorrhoids, melena / GI bleeding, nausea, pain / cramping, satiety and vomiting.ROS Genito urinary (F)Abnormal - Complains of nocturia (once). Denies dysuria, frequency, genital mass es, hematuria, incontinence, urgency, urine color change, vaginal discharge / bleeding and vaginal spotting.ROS MusculoskeletalAbnormal - Complains of severe arthritis. Complains of moderate joint pain. Complains of muscle weakness which is moderate in nature on left side due to stroke 5 years ago. Denies bone pain and decreased range of motion.ROS NeurologicAb normal - Complains of insomnia characterized by trouble falling asleep that occurs every ni ght. Complains of memory loss hard time remembering things, friend states this has been hap pening since surgery to her neck. Complains of motor weakness numbness to toes bilaterally . Complains of stroke 4 years ago, still states has weakness on left side. Denies disorient ation, dizziness, abnormal gait, headaches, sensory problems, paralysis and seizure.ROS Psy chiatricAbnormal - Complains of depression on-going. Denies delusions, hallucinations, mood swings and euphoria.ROS EndocrineAbnormal - Complains of frequent hot flashes. Complains of thyroid disease. Denies diabetes.ROS Hematologic/LymphaticAbnormal - Complains of easy b ruising due to Plavix/Aspirin use. Denies tender or enlarged lymph nodes. Medications: Albuterol 2.5mg/3mL SOLUTION Take as Directed Aspirin 81 mg Clonidine 0.1 mg Effexor 37.5 mg TABLET Take as Directed Iron 27 mg TABLET Take as Directed Lisinopril 10 mg Magnesium 100 mg Methotrexate 2.5 mg Omeprazole 20 mg Percocet 10/325 mg TABLET Take as Directed Plavix 75 mg Prednisone 5 mg Simvastatin 40 mg Synthroid 75 mcg Vitamin D-3 1000 units Zanaflex 4 mg Allergies: No Known Allergies Past Medical History: COPD, Depression, GERD, Hyperlipidemia, Hypertension, Hypothyroidism, Osteoporosis, Pneumo sabra, Rheumatoid Arthritis, Spinal stenosis, Spondylolisthesis of cervical region, Squamous cell carcinoma-Right lung on 07/21/2013 and Stroke. Past Surgical History: bladder suspension, bx to right lower lung on 07/21/2013, cervical spine surgery in 2012, cholecystectomy, hysterectomy in 1973, shoulder surgery, thumb surgery and tongue surgery-b enign. Family History: Father has experienced Stomach Cancer. [...] but quit 05/2012. Physical Exam: Performed on 08/22/2013, 10:45BMI 28.183 kg/m2 (HIGH) Height 160.5 cms Weight 72.6 kg Temperature 37.1 C Pulse 70 / min Respiration 18 / min BP98/48 mm(hg) O2 Sat 99 % Pain 5 PE ConstitutionalNormal - No evidence of impaired alertness, inadequate appearance, premat ure or advanced chronologic age, uncooperativeness, developmental delays, altered mood and affect and disorientation.PE Head Normal - No evidence of alopecia, abnormal cephalic and s cars.PE EyesNormal - No evidence of conjunctivitis, nonreactive pupil(s) and scleral abnorm alities. PE ENMTNormal - No evidence of ear abnormalities, oral abnormalities, nasal obstr uction, oropharynx obstruction, throat abnormalities and tongue abnormalities.PE NeckNormal - No evidence of tender or enlarged lymph nodes, neck abnormalities and restricted range o f motion.PE IntegumentaryAbnormal - Presents with mildly dry skin. No evidence of bruising, erythema, nails changes, altered pigmentation, rash and urticaria.PE ChestNormal - No lyubov dence of chest abnormalities and tender or enlarged lymph nodes.PE CardiovascularNormal - N o evidence of arterial pulse(s) abnormalities, abnormal heart rate, heart arrhythmia and ab normal heart sounds.PE Respiratory Normal - No evidence of abnormal breath sounds, chest ab normalities on palpation and chest abnormalities on percussion.PE AbdomenNormal - No evide nce of abdominal abnormalities and abnormal bowel sounds.PE Extremities Normal - No evidenc e of lower extremities abnormalities and upper extremities abnormalities.PE Musculoskeletal Normal - No evidence of bone abnormalities, joint abnormalities and compromised muscle tone .PE NeurologicNormal - No evidence of impaired cranial nerve(s), uncoordinated gait and mot or impairment. PE PsychiatricNormal - No evidence of altered affect, lack of comprehension and disorientation.PE Hematologic/LymphaticNormal - No evidence of tender or enlarged lymp h nodes, tender or enlarged neck lymph nodes and petechiae / purpura / ecchymosis. Questionnaires: Are you having pain? - Yes [...] in and 10= worst pain - 5 Impression: 162.5 - Malignant neoplasm of lower lobe, bronchus or lung, Diagnosed 07/21/2013 (Active) S tage IIA, T2a, N1, M0. Recommendation/Plan: Stage II non-small cell lung cancer. Stephanie Carmona is a 68-year-old woman who has recently been diagnosed with stage II a non- small cell lung cancer with complicating medical issues making her a possible marginal surg ical candidate. Today we discussed the incidence, prevalence, natural history, staging, and prognosis of her newly diagnosed disease. NCCN guidelines were reviewed. I discussed with her that for stage I and II disease, surgical lobectomy is the gold standard for medically inoperable patients. I will plan to present her case at the [facility] thoracic t umor board next Thursday, August 29. Additionally, pulmonary function testing will be complete d to evaluate her baseline function. If she is deemed to be a non-surgical candidate, chemo radiotherapy would be the best alternative in this scenereo. Overall, she is an excellent c andidate for concurrent chemoradiotherapy if she proves not to be a surgical candidate. The risks, benefits, logistics, and techniques of external beam irradiation for the treatm ent of this condition were discussed in detail including the process of simulation and naren tment delivery. A detailed discussion regarding signs and symptoms of early(temporary) and late(permanent) side effects occurred next. Thea verbalized understanding of the treatmen t recommendation and wishes to proceed to simulation when appropriate. This will be arrang ed pending discussion with the referring physician and multidisciplinary team to complete labs and initial workup as necessary. Thea was encouraged to call our clinic with any fur ther questions or concerns. Thank you for allowing me to participate in the care of Thea Carmona. If you isac abbe have any questions regarding this evaluation, please do not hesitate to contact me. Jimmy Banegas D.O. Radiation Oncologist Department of Radiation Oncology [facility] This note was transcribed using [employer] speech recognition software. As a result, there ma y be unintended for medical and/or spelling errors. Every attempt is made to correct dicta tion. If there are any questions or errors please contact our office. CSN: [id number] signed by Jimmy Banegas DO at 08/26/2013 5:00 PM NEHAdoeric chen in this encounter Plan of Treatment +--------+---------+ + + + | Date | Type | Specialty | Care Team | Description | +--------+---------+ + + + | 03/06/ | Office | Rheumatology | Santosh Sumner, | | | 2019 | Visit | | [address] | | | | | | [facility] | | | | | | [place] [address] | | | | | | [phone] | | | | | | | | +--------+---------+ + + + documented as of this encounter Visit Diagnoses Not on filedocumented in this encounter"
--- OUTSIDE RECORDS SUMMARY | ~2019-12-28 | XMS | Encounter Summary ---
Demographics + + + | Address | [address] | | | [place] [address] | + + + | Home Phone [...] [address] | | | | | [address] | | + + + + + Care Team Providers + +------+ + | Care Aircraft Dispatcher Name | Role | Phone | + +------+ + | Davis Ivan MD | PCP | | + +------+ + Reason for Visit +--------+--------+ + | Reason | Onset | Comments | | | Date | | +--------+--------+ + | Other | 04/25/ | med contraindications | | | 2012 | | +--------+--------+ + Encounter Details +--------+ + + + + | Date | Type | Department | Care Team | Description | +--------+ + + + + | 04/25/ | Telephone | [facility] [place] | Sara Evans, | Other (med | | 2012 | | PULMONARY [address] | RN | contraindications) | | | | [place], | | | | | | [place] [address] | | | | | | [phone] | | | +--------+ + + + [...] Encounter - Sara Evans RN - 04/25/2013 4:40 PM PSTCalled Pharmacist and cancelled fluconazole and called patient and advised. elephone Encounter - Ayana Taylor MD - 3 4:28 PM PSTIf it will be an issue, as we are trialing treating empirically, we can tell t he patient that it is too high risk to treat and hold off doing it and repeat chest x-ray ne xt appointment. I do not want to increase her valium level. elephone Encounter - Sara Evans RN - 3:05 PM PSTChad called stating that he will ask Thea to stop the simvastatin whil e on the fluconazole but he is also concerned that it may increase the valium level.Electron ezequiely signed by Sara Evans RN at 04/25/2013 3:07 PM PSTdocumented in this encounter Plan of Treatment +--------+---------+ + + + | Date | Type | Specialty | Care Team | Description | +--------+---------+ + + + | 03/06/ | Office | Rheumatology | Santosh Sumner, | | | 2019 | Visit | | [address] | | | | | | [facility] | | | | | | [place] [address] | | | | | | [phone] | | | | | | | | +--------+---------+ + + + documented as of this encounter Visit Diagnoses Not on filedocumented in this encounter"
--- OUTSIDE RECORDS SUMMARY | ~2019-12-28 | XMS | Encounter Summary ---
Demographics + + + | Address | [address] | | | [place] [address] | + + + | Home Phone [...] [address] [address] | | | | | [address] | | + + + + + Care Team Providers + +------+ + | Care Foreign Language Professor Name | Role | Phone | + +------+ + | Davis Ivan MD | PCP | | + +------+ + Reason for Visit +--------+--------+ + | Reason | Onset | Comments | | | Date | | +--------+--------+ + | Other | 03/20/ | CPAP | | | 2013 | | +--------+--------+ [...] | | | | | | [place] [address] | | | | | | [phone] | | | +--------+ + + + [...] Telephone Encounter - Sara Evans RN - 03/20/2014 4:14 PM PDTCalled Thea and relay ed this message. She has a follow up scheduled on 04/17/14. elephone Encounter - Ayana Taylor MD - 3:57 PM PDTOkay to discontinue, at patient's request. She needs to notify her surge on prior to surgery that she has untreated MARCE as it increases her perioperative risk. Goyo mares make sure this does not affect her follow up schedule. elephone Encounter - Sara Evans RN - 03/20 1:44 PM PDTJoann called stating that she stopped wearing her CPAP 2 weeks ago. She wa s waking up every 2 hours, not sleeping well and felt like she was just dosing all night. Fernando mares called [facility] and asked them to belt picker the machine. documented in this encounter Plan of Treatment +--------+---------+ + + + | Date | Type | Specialty | Care Team | Description | +--------+---------+ + + + | 03/06/ | Office | Rheumatology | Santosh Sumner, | | | 2019 | Visit | | [address] | | | | | | [place] | | | | | | [place] [address] | | | | | | [phone] | | | | | | | | +--------+---------+ + + + documented as of this encounter Visit Diagnoses Not on filedocumented in this encounter"
--- OUTSIDE RECORDS SUMMARY | ~2019-12-28 | XMS | Encounter Summary ---
Demographics + + + | Address | [address] | | | [place] [address] | + + + | Home Phone [...] [place] | | | | | [address] | | + + + + + Care Team Providers + +------+ + | Care Avionics Engineer Name | Role | Phone | [...] | s, | [address] | [place] [address] | | | | | unspecified | [place], | Phone: | | | | | | [place] | [phone] | | | | | | [address] | Fax: | | | | | | Phone: | [phone] | | | | | | [phone] | | | | | | | Fax: | | | | | | | [phone] | | +--------+--------+ + + + + Encounter Details +--------+---------+ + + + | Date | Type | Department | Care Team | Description | +--------+---------+ + + + | 07/19/ | Office | [facility] [place] | Giuliano Padilla, | Trigger finger of | | 2019 | Visit | ORTHOPEDIC SURGERY | MD [address] | left thumb (Primary | | | | [address] [place] | [place] | Dx); Trigger middle | | | | [place] | [address] | finger of left hand; | | | | [address] | | Trigger ring finger | | | | [phone] | | of left hand | +--------+---------+ [...] | 2019 | Visit | | [address] | | | | | | [facility] | | | | | | [place] [address] | | | | | | [phone] | | | | | | | [...] | | Intramuscular, ONCE, 07/19/18 | | PM PST | | | [...]
--- OUTSIDE RECORDS SUMMARY | ~2019-12-28 | XMS | Encounter Summary ---
Demographics + + + | Address | [address] | | | [place] [address] | + + + | Home Phone [...] [place] | | | | | [address] | | + + + + + Care Team Providers + +------+ + | Care Security Management Specialist Name | Role | Phone [...] | | | | CT Cervical | [address] | | | | | | Spine wo | Phone: | | | | | | Contrast | [phone] | | | | | | | Fax: | | | | | | | [phone] | | +--------+--------+ + + + + [...] | | | | CT Cervical | [address] | | | | | | Spine wo | Phone: | | | | | | Contrast | [phone] | | | | | | | Fax: | | | | | | | [phone] | | +--------+--------+ + + + + Encounter Details +--------+ + + + + | Date | Type | Department | Care Team | Description | +--------+ + + + + | 06/16/ | Hospital | [facility] | Vidal Dalton ARNP | Spinal stenosis in | | 2015 | Encounter | MED CTR [address] | [address] | cervical region | | | | [place], | [address] [place], | | | | | [place] [address] | [place] [address] | | | | | [phone] | [phone] | | | | | | | [...] | | | | | (pediatric) | strap hoses, | | | | | | [...] | 2020 | Visit | | [address] | | | | | | [place] | | | | | | [place] [address] | | | | | | [phone] | | | | | | | [...] + | MISCELLANEOUS LAB | | | [phone] | + +---------+ + + | MISCELANIOUS LAB | | | [phone] | + +---------+ + + documented in this encounter Visit Diagnoses + + | Diagnosis | + + | Spinal stenosis in cervical region | + + documented in this encounter"
--- OUTSIDE RECORDS SUMMARY | ~2019-12-28 | XMS | Encounter Summary ---
Demographics + + + | Address | [address] | | | [place] [address] | + + + | Home Phone [...] [place] | | | | | [address] | | + + + + + Care Team Providers + +------+ + | Care Distribution Manager Name | Role | Phone | [...] | Bilateral | [place], | [address] | | | | | leg edema | Ayana B, | [place], | | | | | Procedures | MD [address] | [place] | | | | | ECHO | [address] | [address] | | | | | Complete | [place], | Phone: | | | | | | [place] [address] | [phone] | | | | | | | Fax: | | | | | | | [phone] | +--------+--------+ + + + + Reason [...] | Bilateral | Offenstein, | [address] | | | | | leg edema | Ayana Looney, | [place], | | | | | Procedures | MD [address] | [place] | | | | | ECHO | [address] | [address] | | | | | Complete | [place], | Phone: | | | | | | [place] [address] | [phone] | | | | | | | Fax: | | | | | | | [phone] | +--------+--------+ + + + + Encounter Details +--------+ + + + + | Date | Type | Department | Care Team | Description | +--------+ + + + + | 11/29/ | Hospital | [facility] | [place], | Bilateral leg edema | | 2016 | Encounter | MED CTR ECHO [address] | Ayana Looney MD | | | | | [address] [place] | [place], | | | | | [place] [address] | Technologist | | | | | [phone] | | | +--------+ + + + [...] | 2019 | Visit | | [address] | | | | | | [facility] | | | | | | [place] [address] | | | | | | [phone] | | | | | | | [...] Name GRISELDA | [facility] | | THEA Room Number YOLANDA Patient | [facility] | | Number [id number] Date of Study 11/30/2015 | - IMAGING | | Visit Number [id number] | | | Referring Physician OUSMANE LANG Number | | | B Date of | | | 1945 [employer] Poster HOLLEY MARTE | | | | | | RDS Age 70 year(s) | | | Interpreting NOMAN HAIDER | | | Solar Designer/Installer LUIS | | | | | | [...] | | (TTE) Demographics Patient Name GRISELDA THEA Room Number YOLANDA | | Patient Number [id number] Date of Study 11/30/2015 Visit Number | | [id number] Referring Physician OUSMANE LANG | | Number B Date of 1945 | | Billboard Poster HOLLEY MARTE | | RDS Age 70 year(s) Interpreting NOMAN HAIDER | | Solar Designer/Installer LUIS | | LUIS TINEO MD Gender Female | | NurseProcedureType of Study TTE procedure: ECHO Complete.Procedure dateDate: | | 11/30/2015Start: 10:07 AMTechnical Quality: Poor visualizationStudy Location: Echo | | LabIndications: [facility] 782.3/R60.0.Patient Status: RoutineHeight: 62 inchesWeight: 163 | [...] ST. | [address] | [place] | [phone] | | [facility] | | [address] | | | - IMAGING | | [...]
--- OUTSIDE RECORDS SUMMARY | ~2019-12-28 | XMS | Encounter Summary ---
Demographics + + + | Address | [address] | | | [place] [address] | + + + | Home Phone [...] [place] | | | | | [address] | | + + + + + Care Team Providers + +------+ + | Care Computer Applications Instructor Name | Role | Phone | [...] | | | | carcinoma of | [address] | [place] [address] | | | | | lung, right | [place], | Phone: | | | | | (HCC) | [place] [address] | [phone] | | | | | | | Fax: | | | | | | | [phone] | +--------+ + + + + + Reason for Visit +--------+ + | Reason | Comments | +--------+ + | COPD | | +--------+ + Encounter Details +--------+---------+ + + + | Date | Type | Department | Care Team | Description | +--------+---------+ + + + | 07/17/ | Office | [facility] [place] | Offenstein, | COPD exacerbation | | 2014 | Visit | PULMONARY [address] | Ayana Looney MD | ([facility]); Recurrent | | | | [address] [place], | | squamous cell | | | | [place] [address] | | carcinoma of lung, | | | | [phone] | | right ([facility]) | +--------+---------+ + + [...] CT scan. She had this biopsied in [place] by endobronchial ultraso und-transbronchial needle aspiration of [...] Diagnosis Date COPD (chronic obstructive pulmonary disease) ([facility]) on albuterol Spondylolisthesis of cervical region Spinal stenosis has tried cortisone injections Osteoporosis Depression Pneumonia 2008 hospitalized 5 days Rheumatoid arthritis(714.0) ([facility]) on prednisone and methotrexate, Dr. 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 Respiratory Therapy Supplies [facility] Respironics autotitrating CPAP at 5-9 cm H2O for life time. Mask, headgear, chin strap, hoses, humidifier chamber and filters. Dx: 327.23 1 each 0 Respiratory Therapy Supplies [facility] ResMed S9 auto CPAP 5-9 cm H2O. [...] made to ensure accuracy; however, inadvertent computerized pipe stem sawyer errors may be pre sent. documented in t his encounter Plan of Treatment +--------+---------+ + + + | Date | Type | Specialty | Care Team | Description | +--------+---------+ + + + | 03/06/ | Office | Rheumatology | Santosh Sumner, | | | 2020 | Visit | | [address] | | | | | | [facility] | | | | | | [place] [address] | | | | | | [phone] | | | | | | | [...]
--- OUTSIDE RECORDS SUMMARY | ~2019-12-28 | XMS | Encounter Summary ---
Demographics + + + | Address | [address] | | | [place] [address] | + + + | Home Phone [...] [place] | | | | | [address] | | + + + + + [...] | +---------+ + Evaluate & Treat (Routine) +--------+--------+ + [...] | | | | shoulder | [place] [address] | [place] | | | | | | Phone: | [address] | | | | | | [phone] | Phone: | | | | | | Fax: | [phone] | | | | | | [phone] | Fax: | | | | | | | [phone] | +--------+--------+ + + + + Encounter Details +--------+---------+ + + + | Date | Type | Department | Care Team | Description | +--------+---------+ + + + | 12/27/ | Office | [facility] | Giuliano Padilla, | Postop check | | 2019 | Visit | ORTHOPEDIC SURGERY | [address] | (Primary Dx) | | | | [address] | [place] | | | | | [place] | [address] | | | | | [address] | | | | | | [phone] | | | +--------+---------+ + + + [...] | | | | | | [facility] | | | | | | [place] [address] | | | | | | [phone] | | | | | | | | +--------+---------+ + + + documented as of this encounter Visit Diagnoses + + | Diagnosis | + + | Postop check - Primary Follow-up examination, following unspecified surgery | + + documented in this encounter
--- OUTSIDE RECORDS SUMMARY | ~2019-12-28 | XMS | Encounter Summary ---
Demographics + + + | Address | [address] | | | [place] [address] | + + + | Home Phone [...] [address] | | | | | [address] | | + + + + + Care Team Providers + +------+ + | Care Dental Laboratory Supervisor Name | Role | Phone | + +------+ + | Davis Ivan MD | PCP | | + +------+ + Reason for Visit + +--------+ + | Reason | Onset | Comments | | | Date | | + +--------+ + | Medication Refill | 11/20/ | | | | 2014 | | + +--------+ + Encounter Details +--------+--------+ + + + | Date | Type | Department | Care Team | Description | +--------+--------+ + + + | 11/20/ | Refill | [facility] | Vivian, | Medication Refill | | 2014 | | [facility] | Lokesh Gramajo MD [address] | | | | | [facility] [address] | [facility] | | | | | [place] | [address] | | | | | [place] [address] | [address] | | | | | [phone] | | | +--------+--------+ + + + [...] | 2020 | Visit | | [address] | | | | | | [facility] | | | | | | [place] [address] | | | | | | [phone] | | | | | | | | +--------+---------+ + + + documented as of this encounter Visit Diagnoses + + | Diagnosis | + + | Gastroesophageal reflux disease without esophagitis - Primary Esophageal reflux | + + documented in this encounter"
--- OUTSIDE RECORDS SUMMARY | ~2019-12-28 | XMS | Clinical Summary ---
Demographics + + + | Address | [address] | | | [place] [address] | + + + | Home Phone | | + + + | Preferred Language | Unknown | + + + | Marital Status | Single | + + + | Bahai Affiliation [...] Team Providers + +------+ + | Care Leisure Travel Agent Name | Role | Phone | + +------+ + | Ayana Taylor MD | PCP | Unavailable | + +------+ + Source Comments [facility] is fully live on [facility] Allergies Not on File Medications Not on [...] | | | + +--------+ +--------+-------+---------+--------+ | DYNAMICS AX DEVELOPER MEDICAID | DYNAMICS AX DEVELOPER | xxxxxxxx | 06/03/19 | | | [...] + +--------+ +--------+ + + | Dominga Cramona | Person | Self | [birth year] | [address] | | | al/Fam | | 1945 | [phone] | [place] [address] | | | jana | | | 1 (Home) | | + +--------+ +--------+ + +"
--- OUTSIDE RECORDS SUMMARY | ~2019-12-28 | XMS | Encounter Summary ---
Demographics + + + | Address | [address] | | | [place] [address] | + + + | Home Phone [...] [place] | | | | | [address] | | + + + + + Care Team Providers + +------+ + | Care City Assessor Name | Role | Phone | + [...] + + | 11/09/ | Office | [facility] | Giuliano Padilla, | Postop check | | 2018 | Visit | ORTHOPEDIC SURGERY | [address] | (Primary Dx) | | | | [address] | [place] | | | | | [place] | [id number] | | | | | [address] | | | | | | [phone] | | | +--------+---------+ + + + [...] [address] | | | | | | [facility] | | | | | | [place] [address] | | | | | | [phone] | | | | | | | | +--------+---------+ + + + documented as of this encounter Visit Diagnoses + + | Diagnosis | + + | Postop check - Primary Follow-up examination, following unspecified surgery | + + documented in this encounter"
--- OUTSIDE RECORDS SUMMARY | ~2019-12-28 | XMS | Encounter Summary ---
Demographics + + + | Address | [address] | | | [place] [address] | + + + | Home Phone [...] [address] [address] | | | | | [address] | | + + + + + Care Team Providers + +------+ + | Care Air Chief Marshal Name | Role | Phone | + +------+ + | Davis Ivan MD | PCP | | + +------+ + Reason for Visit +--------+--------+ + | Reason | Onset | Comments | | | Date | | +--------+--------+ + | Other | 12/22/ | CPAP | | | 2013 | [...] | | | | | | [place] [address] | | | | | | [phone] | | | +--------+ + + + [...] Telephone Encounter - Sara Evans RN - 12/23/2013 9:39 AM PDTCalled Thea and relay ed this message. Order sent to [facility]. elephone Encounter - Ayana Taylor MD - 12/22/2013 5:4 7 PM PDTOkay by me if insurance is willing to provide. elephone Encounter - Sara Evans RN - 014 4:18 PM PDTYvmu from [facility] called stating that Stephanie came in to discuss CP AP options. Kellee would like to provide a Respironics autotitrating CPAP set at 5-9 cm H2O as this machine is easier to use. Stephanie is willing to try if okay with Dr Taylor.Electr onically signed by Sara Evans, RN at 12/22/2013 4:23 PM PDTdocumented in this encount er Plan of Treatment +--------+---------+ + + + | Date | Type | Specialty | Care Team | Description | +--------+---------+ + + + | 03/06/ | Office | Rheumatology | Taisha Santosh, | | | 2019 | Visit | | [address] | | | | | | [facility] | | | | | | [place] [address] | | | | | | [phone] | | | | | | | | +--------+---------+ + + + documented as of this encounter Visit Diagnoses + + | Diagnosis | + + | Obstructive sleep apnea (adult) (pediatric) - Primary | + + documented in this encounter"
[~2019-12-28 19:44] MED LIST changes: +ALDACTONE25 MG PO; +AUGMENTIN 875-1 EACH PO; +BUDESONIDE0.5 MG/2 M INH; -CURCUMIN1 GM MISC; +D3 DOTS2000 UNIT PO; +FLONASE ALLERG9.9 ML NAS; +FOLIC ACID0.8 MG PO; +IPRATROPIUM BRO30 ML NAS; +LEVAQUIN750 MG PO; +MELATONIN10 M2 PO; +TURMERIC500 M2 PO
--- OUTSIDE RECORDS SUMMARY | 2019-12-28 19:48 | XMS ---
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 Care History Medical/Surgical 08/20/2018 [facility] - Patient is currently established with [facility]. If patient is seen in the ED during business hours. Please contact CHWs at [facility]. Care Recommendation: This patient has [...] providing care. E.D. VISIT COUNT (12 MO.) [address] [facility] [facility] TOTAL 3 NOTE: Visits indicate total known visits. ED/UCC VISIT TRACKING (12 MO.) 12/28/2019 19:45 [facility] TYPE: Emergency COMPLAINT: - GLF, R ARM LACERATION 12/20/2019 15:12 [facility] TYPE: Emergency COMPLAINT: - SOB 05/05/2019 11:27 [facility] TYPE: Emergency COMPLAINT: - POST OP PROBLEM, ABD PAIN INPATIENT VISIT TRACKING (12 MO.) 12/20/2019 15:13 [facility] TYPE: Observation COMPLAINT: - COPD EXACERBA DIAGNOSES: - Contact with and (suspected) exposure to other viral communic - Personal history of nicotine dependence - Allergy status to other antibiotic agents status - Hyperlipidemia, unspecified - Acute pharyngitis, unspecified - Major depressive disorder, single episode, unspecified - Gastro-esophageal reflux disease without esophagitis - Obstructive sleep apnea (adult) (pediatric) - Malignant neoplasm of unspecified part of unspecified bronchu - Rheumatoid arthritis, unspecified - Chronic obstructive pulmonary disease with (acute) exacerbati - Personal history of transient ischemic attack (TIA), and cere - Hypothyroidism, unspecified 05/05/2019 16:[address] [facility] [place] TYPE: Medical Surgical COMPLAINT: - PULMONARY EMBOLISM DIAGNOSES: - Other residential (current) drug therapy - Chronic obstructive pulmonary disease with (acute) exacerbati - Rheumatoid arthritis, unspecified - Hypothyroidism, unspecified - Venous insufficiency (chronic) (peripheral) - rn long term care (current) use of systemic steroids - Other pulmonary embolism without acute cor pulmonale - Myocardial infarction type 2 - Gastro-esophageal reflux disease without esophagitis - Allergy status to other antibiotic agents status - Hyperlipidemia, unspecified - Unspecified mood [affective] disorder - retirement (current) use of anticoagulants - Unspecified atrial fibrillation - Malignant neoplasm of unspecified part of right bronchus or l [email or web address]
[2019-12-29] MEDS ORDERED: NORCO 5-325 TA1 EACH PO (00:39)
== END 2019-12-29 01:15 | disposition home or self-care (01) ==
LOC: ED 19:44
DX: S41.111A Laceration without foreign body of right upper arm, initial encounter (principal); S31.811A Laceration without foreign body of right buttock, initial encounter; S00.93XA Contusion of unspecified part of head, initial encounter; I10 Essential (primary) hypertension; J44.9 Chronic obstructive pulmonary disease, unspecified; Z79.899 Other long term (current) drug therapy; Z79.01 Long term (current) use of anticoagulants; Z88.1 Allergy status to other antibiotic agents; Z87.891 Personal history of nicotine dependence; W01.0XXA Fall on same level from slipping, tripping and stumbling without subsequent striking against object, initial encounter
CPT/HCPCS: 70450; 73110; 73502; 80053; 85025; 85610; 96374; 99284-25

== ENCOUNTER 2020-10-16 11:16 | Inpatient (IN) | payer MEDICARE, OTHER ==
[~2020-10-16] VITALS: Ht 157.5 cm; Wt 62.1 kg
[~2020-10-16 11:16] MED LIST changes: -D3 DOTS2000 UNIT PO; +D3 DOTS50 MCG PO; +HYDROXYCHLOROQ200 MG PO
--- OUTSIDE RECORDS SUMMARY | 2020-10-16 11:22 | XMS ---
PreManage Notification: TENA VILLALOBOS Security Inside Account Representative Events No recent Security Events currently on file CRITERIA MET - History of Sepsis Dx - [facility] - 2 Visits in 30 Days CARE PROVIDERS Duncan Contreras Business Teacher/Jointer Operator 07/02/2020-Current PHONE: [phone] VLADIMIR, [facility] 02/09/2018-Current LOBO Vaughan PHONE: [phone] ROHITH JACKSON Internal Medicine 08/03/2018-Current PHONE: [phone] Mila has no Care Guidelines for this patient. Care History Medical/Surgical 08/20/2018 [facility] - Patient is currently established with [facility]. If patient is seen in the ED during business hours. Please contact CHWs at [facility]. Care Recommendation: This patient has had 5 [...] providing care. E.D. VISIT COUNT (12 MO.) [address] [facility] TOTAL 4 NOTE: Visits indicate total known visits. ED/UCC VISIT TRACKING (12 MO.) 10/16/2020 11:17 [facility] [place] TYPE: Emergency COMPLAINT: - WEAKNESS, N/V 09/25/2020 13:37 [facility] [place] TYPE: Emergency COMPLAINT: - R ELBOW INJURY DIAGNOSES: - Personal history of nicotine dependence - Essential (primary) hypertension - Chronic obstructive pulmonary disease, unspecified - exterminator termite (current) use of systemic steroids - Personal history of other malignant neoplasm of bronchus and lung - Striking against or struck by other objects, initial encounter - Other shelter (current) drug therapy - Contusion of right elbow, initial encounter - Allergy status to other antibiotic agents - exterminator termite (current) use of anticoagulants 12/28/2019 19:45 [facility] [place] TYPE: Emergency COMPLAINT: - GLF, R ARM LACERATION DIAGNOSES: - exterminator termite (current) use of anticoagulants - Contusion of unspecified part of head, initial encounter - Chronic obstructive pulmonary disease, unspecified - Other shelter (current) drug therapy - Essential (primary) hypertension - Laceration without foreign body of right upper arm, initial encounter - Personal history of nicotine dependence - Laceration without foreign body of right forearm, initial encounter - Allergy status to other antibiotic agents - Laceration without foreign body of right buttock, initial encounter - Fall on same level from slipping, tripping and stumbling without subsequent striking against object, initial encounter 12/20/2019 15:12 [facility] [place] TYPE: Emergency COMPLAINT: - SOB INPATIENT VISIT TRACKING (12 MO.) 12/20/2019 15:13 [facility] [place] TYPE: Observation COMPLAINT: - COPD EXACERBA DIAGNOSES: - Contact with and (suspected) exposure to other viral communicable diseases - Personal history of nicotine dependence - Allergy status to other antibiotic agents - Hyperlipidemia, unspecified - Acute pharyngitis, unspecified - Major depressive disorder, single episode, unspecified - Gastro-esophageal reflux disease without esophagitis - Obstructive sleep apnea (adult) (pediatric) - Malignant neoplasm of unspecified part of unspecified bronchus or lung - Rheumatoid arthritis, unspecified - Chronic obstructive pulmonary disease with (acute) exacerbation - Personal history of transient ischemic attack (TIA), and cerebral infarction without residual deficits - Hypothyroidism, unspecified [email or web address]
--- NOTE | 2020-10-16 16:34 | EKG ---
[facility] [address] [facility] [place] [address] Signed Sinus tachycardia with premature atrial complexes ST \T\ T wave abnormality, consider inferolateral ischemia Abnormal ECG When compared with ECG of 20-DEC-2019 15:20, Previous ECG has undetermined rhythm, needs review T wave inversion now evident in Inferior leads T wave inversion less evident in Lateral leads Confirmed by GREGORIO SWEENEY MD ([id number]) on 10/16/2020 4:34:07 PM Electronically Signed By: GREGORIO SWEENEY MD 10/16/20 1634 PATIENT NAME: TENA VILLALOBOS Electrocardiogram DATE OF : 43 PHYSICIAN: GREGORIO SWEENEY MD REPORT #: [id number] REPORT IS CONFIDENTIAL AND NOT TO BE RELEASED WITHOUT AUTHORIZATION
--- NOTE | 2020-10-16 21:10 | NUR ---
pt ARRIVED TO UNIT 2039. 3PA FROM STRETCHER TO BED. ALERT AND ORIENTED X4. pt DENIED PAIN, IS FEELING NAUSEOUS. SKIN BREAKDOWN NOTED EVERYWHERE. pt IS VERY TIRED, THOROUGH SKIN ASSESSMENT TO BE DONE LATER, PER pt REQUEST. OKAY TO TAKE PICTURES OF SKIN BREAKDOWN AT THAT TIME. HEMOSIDERIN STAINING TO BLE. BUTTOCKS RED WITH A FEW SPOTS OF DERMAL LOSS. RED SPOTS NOTED WELL. REDNESS NOTED IN GROIN, DESENEX APPLIED. MAIER DRAINING CONCENTRATED URINE. LEFT HAND IS ECCHYMOTIC, pt REPORTS THAT SHE HAS A "SPIDER BITE" TO THE AREA. TENDER WHEN MOVING HER HAND. BRUISING NOTED THROUGHOUT. PORT HAS BLOOD RETURN, IVF INFUSING. pt USES A LIFT CHAIR AND A WALKER AT HOME. REPORTS HAVING FALLEN TWICE IN THE LAST 30 DAYS. ONCE WHEN SHE HIT THE TABLE AND ANOTHER TIME WHEN HER "WALKER GOT AWAY FROM HER." REPORTS A GREATER THAN 30 POUND WEIGHT LOSS RECENTLY. pt DENIES TRYING TO LOSE WEIGHT. HAS NOT HAD AN APPETITE RECENTLY. CALL LIGHT WITHIN REACH.
--- NOTE | 2020-10-16 22:00 | NUR ---
IN TO GIVE MEDICATIONS, pt RESTING IN BED WATCHING TV. pt UNABLE TO SWALLOW LARGE PILLS CARAFATE HELD PER pt REQUEST. OTHER MEDICATIONS GIVEN INCLUDING ZOFRAN (SEE MAR). pt REQUESTED TO SLEEP. LIGHTS OFF. CALL LIGHT WITHIN REACH.
--- NOTE | 2020-10-16 23:07 | NUR ---
IVF AVAILABLE, HUNG. pt RESTING IN BED WITH EYES CLOSED, RESPIRATIONS REGULAR AND UNLABORED AT THIS TIME. CALL LIGHT WITHIN REACH.
--- NOTE | 2020-10-17 01:35 | NUR ---
CALL LIGHT ON. pt REPORTED "PAIN THAT WOKE ME UP" RATED 8/10. PRN GIVEN (SEE MAR). pt OKAY TO DO FULL SKIN ASSESSMENT AND PICTURES. SKIN IS DRY, REDDENED AREAS AND BRUISING NOTED IN MANY PLACES. AREAS OF BREAKDOWN WERE CLEANSED GENTLY WITH WOUND CLEANSER AND CLOTH WAS TUCKED IN TO CREASES FOR COMFORT. LEFT HAND HAS "SPIDER BITE" PER pt, BROWNISH RED AND TENDER TO TOUCH LEFT ARM HAS SCATTERED BRUISES AND A SCAB ON THE UPPER ARM LEFT ELBOW HAS A SKIN TEAR. ALLEVYN APPLIED AFTER CLEANSING LEFT AND RIGHT LEG HAVE SCATTERED BRUSING AND HEMOSIDERIN STAINING. pt REPORTS THIS HAS BEEN CHRONIC FOR SEVERAL YEARS. UNDER HER RIGHT AND LEFT BREASTS THERE IS SKIN BREAKDOWN IN THE CREASE EXTENDING ON TO HER CHEST. pt REPORTS THAT DR JACKSON HAS ASSESSED THESE IN HIS OFFICE AND SHE USES LANOLIN AND CUTS CHUX TO FIT IN THE CREASES RIGHT AND LEFT GROIN CREASES HAVE SKIN BREAKDOWN. GLUTEAL CLEFT HAS SKIN BREAKDOWN. REDNESS NOTED. LEFT BUTTOCKS HAS TWO 1MM ROUND AREAS OF SKIN BREAKDOWN AND IS RED. SMALL PINPOINT DOTS ARE NOTED ON BUTTOCKS. pt HAS SKIN BREAKDOWN NOTED IN THE CREASE IN HER NECK, THERE IS ALSO BRUISING. pt HAS RED AROUND BOTH EYES WITH SCABS PRESENT. THERE ARE SCABS ON HER LIPS AND NOSE. LEFT CHEEK HAS A SCAB. pt REPORTS THAT HER FRIEND DENISHA WHO CARES FOR HER HAS BEEN HAVING TROUBLE DOING SO, HE IS OLDER THAN SHE IS. SHE LIVES AT HOME. DENISHA LIVES IN HER BASEMENT. WHILE CLEANING HER WOUNDS SHE EXPERIENCED PAIN, PRN IV PAIN MEDICATION GIVEN. FLOATED HIPS. WARM BLANKETS PROVIDED. CALL LIGHT WITHIN REACH. pt REPORTED THAT PAIN MEDICATION IS HELPING.
--- NOTE | 2020-10-17 02:00 | NUR ---
ROUNDED ON pt. RESTING IN BED WITH EYES CLOSED, RESPIRATIONS REGULAR AND UNLABORED. CALL LIGHT WITHIN REACH.
--- NOTE | 2020-10-17 04:00 | NUR ---
ROUNDED ON pt. RESTING IN BED WITH EYES CLOSED, RESPIRATIONS REGULAR AND UNLABORED. CALL LIGHT WITHIN REACH.
--- NOTE | 2020-10-17 05:58 | NUR ---
IN TO DO ASSESSMENT. pt WOKE TO VOICE. LEFT EYELID WAS BLEEDING FROM SCABBED AREA. pt REPORTED THIS IS BASELINE FOR HER. REPORTED PAIN IS "OKAY" AT THIS TIME. "A LITTLE" NAUSEA, REFUSED MEDS AT THIS TIME. PROVIDED CLEAR SODA. LABS DRAWN. NO CHANGES IN ASSESSMENT. MAIER EMPTIED. ASSISTED TO REPOSITION. CALL LIGHT WITHIN REACH.
--- NOTE | 2020-10-17 08:30 | NUR ---
REPORT RECEIVED FROM BHARGAV CCU RN. IN ROOM TO HANG NEW BAG OF FLUIDS, LR W/ 20K @ 125 MLS HR. PT REQUESTING PAIN MEDICATION FOR 10/10 LOW BACK AND ABD PAIN. PT REFUSING PO PAIN MEDICATION AND TYLENOL, STATES SHE DOES NOT FEEL ABLE TO SWALLOW PILLS AT THIS TIME. GIVEN IV DILAUDID. LABS DRAWN FROM PORT FOR PT/INR, BRISK BLOOD RETURN, POSI-FLOW CAP CHANGED. IV UNASYN NOW INFUSING. DRESSING INTACT OVER PORT. RT HAND IV REMAINS PATENT, SALINE LOCKED. DR SWEENEY IN TO SEE PT.
--- NOTE | 2020-10-17 09:30 | NUR ---
HEAD TO TOE ASSESSMENT COMPLETE. LUNGS SOUNDS ARE COARSE AND EXPIRATORY WHEEZES HEARD THROUGHOUT. BOWEL TONES ARE HYPOACTIVE, AND ABD APPEARS MODERATELY DISTENDED. PT DENIES NAUSEA, PAIN HAS DECREASED TO 7/10 SINCE IV DILAUDID. SKIN BREAKDOWN AND REDNESS TO BREAST AND GROIN FOLDS, DESENEX APPLIED TO ALL FOLDS. SCABS AROUND BOTH EYES AND BELOW NOSE, SCABBING ALSO NOTED SCATTERED OVER BUE/BLE, NO ACTIVE BLEEDING AT THIS TIME. LEFT HAND BRUISING AND DECREASED SWELLING, PT STATES FROM A SPIDER BITE 10 DAYS AGO. VSS. PT GIVEN SULCRAFATE DISSOLVED IN WATER, REFUSING NYSTATIN SWISH AND SWALLOW AT THIS TIME. EDUCATED ON IMPORTANCE W/ ABX SHE IS RECEIVING. PT REPOSITIONED IN BED. CALL LIGHT AND TV REMOTE PROVIDED. PT DENIES FURTHER NEEDS AT THIS TIME.
--- NOTE | 2020-10-17 10:15 | NUR ---
THIS RN INTO PATIENT ROOM, PATIENT LAYING IN BED WATCHING TV. CASE MANAGEMENT ASSESSMENT COMPLETED. PATIENT STATES SHE CURRENTLY LIVES IN A TWO STORY HOME WITH HER SIGNIFICANT OTHER DENISHA SOLO. SHE STATES THAT DENISHA IS ALSO HER CAREGIVER AT THIS TIME. PATIENT STATES SHE IS UNABLE TO WALK UP OR DOWN HER STAIRS AT THIS TIME SO SHE LIVES UPSTAIR. PATIENT STATES SHE HAS A LIFT CHAIR THAT SHE SLEEPS IN. PATIENT STATES SHE ALSO HAS A WALKER AND WHEELCHAIR AT HOME. DISCUSSED POSSIBLE PLACEMENT AT DISCHARGE. PATIENT STATES SHE IS AGREEABLE TO PLACEMENT AT THIS TIME DUE TO HER RECENT DECLINE IN CONDITION. I DISCUSSED PLACEMENT OPTIONS DEPENDING ON HER NEEDS AT DISCHARGE. PATIENT IS AGREEABLE. WILL CONTINUE TO FOLLOW UP WITH PATIENT DURING HER STAY TO PLAN FOR DISCHARGE.
--- NOTE | 2020-10-17 10:25 | NUR ---
CALLED WOODWORKING MACHINIST JOY TO NOTIFY OF PT'S WOUND CARE CONSULT. SHE STATES SHE WILL BE BY LATER TODAY TO EVALUATE PT.
--- NOTE | 2020-10-17 11:42 | NUR ---
PT RESTING IN BED EYES CLOSED, VISUALIZED CHEST RISE AND FALL. SATING 97% ON ROOM AIR, OCCASIONALLY DESATS TO 88%, HAS HX OF MARCE. DOES NOT USE A CPAP AT HOME.
--- NOTE | 2020-10-17 12:11 | NUR ---
RESULTS RECEIVED FROM LAB SHOWING POSITIVE BLOOD CULTURES (GRAM NEG. BACILLI) IN SAMPE FROM LEFT CHEST PORT AND VENOUS SAMPLE FROM LFA. DR. PATEL MCNEILL.
--- NOTE | 2020-10-17 12:57 | NUR ---
IN TO GIVE SULCRAFATE. DISSOLVED IN 30 MLS WARM WATER AND PT ABLE TO DRINK IT. PT REPORTING 7/10 ABD PAIN ONCE AWAKE. GIVEN 1 MG IV DILAUDID. LUNG SOUNDS UNCHANGED, COARSE CRACKLES HEARD THROUGHOUT ALONG W/ EXPIRATORY WHEEZES, NO AUDIBLE UPPER AIRWAY WHEEZING OR PRODUCTIVENESS HEARD AT THIS TIME. BOWEL TONES ACTIVE, REMAINS MODERATELY DISTENDED. PT STILL NPO AND ON BOWEL REST. ORAL CARE DONE. VSS. PARTNER DENISHA IN ROOM TO VISIT. BROUGHT PT OWN MEDICATION FOR PHARMACY TO VERIFY (AFATINIB FOR LUNG CANCER REMISSION). CALL LIGHT IN REACH. PHARMACY CALLED.
--- NOTE | 2020-10-17 13:09 | NUR ---
CALLED TO NOTIFY DR SWEENEY OF PT'S DECREASED URINE OUTPUT, 60 MLS FOR THE LAST 4 HOURS. NO NEW ORDERS.
--- NOTE | 2020-10-17 13:37 | NUR ---
PREVIOUSLY STATED, MD ALREADY AWARE OF LOW UO AND BLOOD CULTURE RESULTS. SEE PREVIOUS NOTES.
--- NOTE | 2020-10-17 15:15 | NUR ---
TERRITORY SALES EXECUTIVE IN TO HAVE PT SIGN PAPERWORK.
--- NOTE | 2020-10-17 16:47 | NUR ---
MD AWARE OF LOW URINE OUTPUT
--- NOTE | 2020-10-17 17:05 | NUR ---
PT IS SEEN FOR A WOUND CONSULT FOR ABRAISONS/YEAST INFECTION UNDER HER NECK FOLD, BREASTS, AND GROIN. CURRENTLY THESE AREAS ARE BEING TREATED WITH ANTIFUNGAL POWDER AND PILLOW CASES TO HELP WICK AWAY DRAINAGE/MOISTURE. ALL AREAS ARE GENTLY CLEANED, THEY ARE RED AND BLEEDING. THE CURRENTLY TREATMENT PLAN IS APPROPRIATE FOR THESE WOUND AREAS. IT IS RECOMMENDED TO CONTINUE WITH THE ANTIFUNGAL POWDER TWICE DAILY.
--- NOTE | 2020-10-17 18:07 | NUR ---
PHARMACIST APPRENTICE JOY IN TO SEE PT. NECK, BREAST, AND GROIN FOLDS CLEANED AND DESENEX REAPPLIED. PILLOW CASES TO BREAST AND GROIN FOLDS. SKIN TO BUE DRY, OINTMENT APPLIED TO ARMS. SACRAL ALLEVYN REMAINS C,D,I, LEFT IN PLACE. PT REPOSITIONED W/ PILLOWS. CATHETER CARE COMPLETED. MAIER EMPTIED OF 110 MLS CONCENTRATED AND YELLOW URINE. PROVIDED COMB FOR HAIR, REFRESHED ICE WATER FOR SWABS. TABLE AT BEDSIDE. CALL LIGHT IN REACH. PT DENIES FURTHER NEEDS. PREMEDICATED W/ 1 MG IV DILAUDID FOR 8/10 GENERALIZED PAIN PRIOR TO WOUND CARE CONSULTATION W/ JOY BROTHERS.
--- NOTE | 2020-10-17 19:57 | NUR ---
RECEIVED REPORT FROM DAYSAZFT RNS. pt RESTING IN BED. FRIEND, DENISHA AT BEDSIDE. CALL LIGHT WITHIN REACH.
--- NOTE | 2020-10-17 20:23 | NUR ---
IN TO DO ASSESSMENT AND MEDICATIONS. pt REPORTED 7/10 PAIN. DISCUSSED PAIN MANAGEMENT. GAVE IV AND PO MEDICATIONS FOR PAIN WITH SCHEDULED MEDICATIONS (SEE MAR). EYES MUCH IMPROVED FROM ADMISSION APPLIED SALINE PER pt REQUEST. SKIN CARE DONE. WOUNDS LESS PAINFUL THAN ON ADMISSION. MAIER CARE DONE. REPOSITIONED pt. FLOATING HIPS ON PILLOWS. pt TEARFUL AT TIMES, REPORTS "I JUST FEEL SO MUCH BETTER." DENIED NAUSEA AT THIS TIME. ASSESSMENT DONE. CALL LIGHT WITHIN REACH.
--- NOTE | 2020-10-17 22:40 | NUR ---
CALL LIGHT ON. pt REPORTED 7/10 PAIN, PRN GIVEN (SEE MAR). ASSISTED WITH ORAL CARE. REPOSITIONED TO RIGHT SIDE. pt SOB WITH TURNING. REPORTS IT IS "NORMAL" FOR HER. RR 19, O2 SAT 95%. NO FURTHER REQUESTS AT THIS TIME. CALL LIGHT WITHIN REACH.
--- NOTE | 2020-10-18 00:51 | NUR ---
pt HR INCREASED TO 120'S. pt RESTING IN BED. REPORTED "I HAVEN'T SLEPT MUCH, I KEEP DREAMING ABOUT CLAUSTROPHOBIA" HR 90'S. AUDIBLE WHEEZING HEARD. EXPIRATORY WHEEZING BILAT BASES, HARSH SOUNDING IN THE RIGHT LOWER BASE. LOW URINE OUTPUT, CONCENTRATED. NO EDEMA NOTED. ABD REMAINS MODERATELY DISTENDED, pt DENIES CHANGES TO ABD. MD UPDATED ABOUT pt CONDITION. NEW ORDERS ENTERED. RT CALLED TO DO NEB.
--- NOTE | 2020-10-18 01:14 | NUR ---
IN TO GIVE LASIX, RT IN ROOM FINISHING NEB. pt REPORTED IMPROVEMENT IN BEING ABLE TO BREATH. LUNG SOUNDS IMPROVED, CRACKLES AUSCULATED. WORK OF BREATHING IMPROVED. PRN PAIN MEDICATION GIVEN (SEE MAR) FOR PAIN 11/08. CALL LIGHT WITHIN REACH.
--- NOTE | 2020-10-18 02:10 | NUR ---
IN TO GIVE ABX. SOME URINE NOTED IN MAIER. pt REPORTS BREATHING IS MUCH IMPROVED, WHEEZING NOT AUDIBLE WITHOUT AUSCULATION. pt CONTINUES TO HAVE DRY HACKING COUGH. ANTIBIOTIC INFUSING PER ORDERS (SEE MAR). pt REPORTS PAIN IS "OKAY" AT THIS TIME AND DENIES NEED FOR MEDICATION. CALL LIGHT WITHIN REACH.
--- NOTE | 2020-10-18 03:11 | NUR ---
pt HR SUSTAINING 120 TO 130. PRN GIVEN (SEE MAR). pt REPORTS SHE IS BREATHING BETTER. ASSISTED TO REPOSITION. LARGE OUTPUT FROM MAIER. pt RESTING COMFORTABLY. CALL LIGHT WITHIN REACH.
--- NOTE | 2020-10-18 06:47 | NUR ---
pt CALLED FOR PAIN MEDICATION FOR 01/08 PAIN, GIVEN (SEE MAR). WOUND CARE DONE, SANGUINOUS DRAINAGE NOTED FROM BILAT BREASTS AND GROIN. ALLEVYN TO COCCYX AND LEFT ELBOW CDI. CRACKLES AUSCULATED BILAT LOWERS LOBES. pt REPORTS SHE IS BREATHING "BETTER" BUT AFTER TURNING pt HAS MOIST COUGH. REPOSITIONED. MAIER DRAINING LIGHT YELLOW URINE. PROVIDED WARM BLANKETS AND WATER. CALL LIGHT WITHIN REACH.
--- NOTE | 2020-10-18 08:00 | NUR ---
[id number] PT IS LAYING IN BED. PT IS ALERT AND ORIENTED. PT VERBALIZES DISCOMFORT IN EYES. 2-3 DROPS OF NS PLACED IN BOTH EYES. PT STATES THEY FEEL BETTER. VITAL SIGNS OBTAINED. PT WAS ABLE TO SIT AT THE SIDE OF THE BED FOR A MOMENT BEFORE TRANSFERRING TO THE CHAIR. PT USED WALKER AND ONE PERSON ASSIST DURING AMBULATION. PT HAS A STEADY BUT WEAK GAIT. PT SEEMED FATIGUED WITH INCREASED SOB AFTER ACTIVITY BUT RECOVERED QUICKLY. PT EATING BREAKFAST IN CHAIR. LINENS CHANGED. NO ADDITIONAL NEEDS AT THIS TIME.
--- NOTE | 2020-10-18 08:20 | NUR ---
Spoke with Thea. She states she lives with her friend in her home. He lives in the basement and is her cg as much as she will let him. She would like to be placed in a SNF on dc as she is deconditioned. Her preference for placement is [facility] in [place]. She asked I call Mirza and discuss with him. Attempted to call x 3 and now answer.
[2020-10-18] MEDS ORDERED: OXYCODONE HCL5 MG PO (11:53)
--- NOTE | 2020-10-18 12:15 | NUR ---
FUL REPORT GIVEN TO YG BROTHERS. ON MED SURGE FLOOR. PT HAS ALL BELONGINGS WITH HER. PT PLACED IN ROOM 117.
[2020-10-18] MEDS ORDERED: OMEPRAZOLE40 MG PO (12:39)
--- NOTE | 2020-10-18 12:45 | NUR ---
PT CAME OVER FROM CCU AT 1200. PT IS AAOX4, PT IN ROOM, PAIN WAS 7/10, PRN DILAUDED GIVEN. WILL CONTINUE TO MONITOR.
--- NOTE | 2020-10-18 12:49 | NUR ---
Face sheet, H&P,progress notes, serology report, medication list faxed to Carine at [facility].
--- NOTE | 2020-10-18 14:07 | NUR ---
PT IS ALERT, ORIENTED AND SITTNG IN CHAIR. SHE REMEMBERED ME FROM PREVIOUS VISIT. PT STATED SHE IS FEELING MUCH BETTER. INFORMED ME SHE IS TO MOVE TO [place] LATER TODAY.PT PLEASED WITH CARE AT [facility], REQUESTED PRAYER. GAVE G.POST AND BLESSING. WILL FOLLOW
[2020-10-18] MEDS ORDERED: VITAMIN K2100 MCG PO (14:08)
--- NOTE | 2020-10-18 14:15 | NUR ---
PT NOW HAS BLOOD IN URINE, MD SWEENEY AWARE, PT ALSO HAS ACTIVITY INTOLERANCE WITH SOB WHEN AMBULATING. ALL LOBES ARE COARSE, HR IN THE 120'S WITH ACTIVITY. PULSES WDL, NO PERIPH. EDEMA NOTED, PT AAO, SKIN DRY, FRAGILE AND BRUISED WITH MULTIPLE EXCORIATIONS. WILL CONTINUE TO MONITOR.
--- NOTE | 2020-10-18 14:27 | NUR ---
MED REC COMPLETE
--- NOTE | 2020-10-18 15:00 | NUR ---
Notified by Dr. Jaime Sidhu's friend is here and requesting to know why she was told she had to go to a SNF. To room to speak with friend and he has gone home. Notified Thea I have tried to call Mirza 4 x today. She states he cannot hear the phone. Again asked if she is wanting to go to a SNF, and she states she really feels she needs to. Mirza lives in the downstairs and she can no longer walk down stairs. She feels she needs PT. She would like him to be included in the conversation. She states he is wanting a nurse to visit them daily. Discussed this would need to be paid out of pocket and [facility] has RNs, but it is $80.00 per hour. Discussed HH, but there is no bedside care. Visits are for skilled need only. She would like CM to speak with him tomorrow when he returns. Asked she notify the nurses to call us when he returns tomorrow and we can visit.
--- NOTE | 2020-10-18 16:00 | NUR ---
PT IN ROOM WITH FAMILY. NO NEW CONCERNS NOTED AT THIS TIME.
--- NOTE | 2020-10-18 17:35 | NUR ---
PT ARRIVED FROM CCU AT 1200. AT ONE POINT PT DID HAVE BLOOD IN HER URINE. MD SWEENEY IS AWARE. V/S SO FAR WDL, URINE OUTPUT WDL OVERALL, ALL LOBES ARE COARSE AND PRN NEBS WERE ALSO ORDERED THIS AFTERNOON.
--- NOTE | 2020-10-18 18:31 | NUR ---
ASSISTED PT BACK TO BED FROM BATHROOM. RECTAL BLEEDING FROM PROBABLY HEMORRHOIDS INTERNAL/EXTERNAL. PT NOW ALSO HAS BLOOT CLOT PRESENT IN HER MAIER WITH BLOODY URINE. MD SWEENEY WAS NOTIFED AND NO ORDERS WERE GIVEN/ RECEIVED.
--- NOTE | 2020-10-18 19:25 | NUR ---
SHIFT REPORT RECEIVED FROM DAYSHIFT ZEV RONQUILLO AT BEDSIDE, pt AWAKE AND ON BSC. REQUESTING SOMETHING FOR PAIN MEDICATION, pt INSTRUCTED TO CALL WHEN OFF BSC. pt VERBALIZED UNDERSTANDING, CALL LIGHT IN REACH.
--- NOTE | 2020-10-18 19:52 | NUR ---
pt OFF BSC, LIQUID BM NOTED, DARK BROWN IN COLOR WITH X2 SCANT STREAKS OF BLOOD. WILL MONITOR. pt RECENTLY ASSITED BACK TO BED WITH HELP FROM LIVIER LOPEZ AND DRAINING DARK YELLOW URINE. pt ENCOURAGED PO INTAKE, pt VERBALIZED UNDERSTANDING. CALL LIGHT IN REACH. PRN PAIN MEDICATION ALSO GIVEN, SEE EMAR.
--- NOTE | 2020-10-18 19:54 | NUR ---
CALL ANSWERED AND PATIENT REQUESTED BSC USE. 1PA TO BSC. PATIENT INSTRUCTED TO CALL WHEN FINSIHED. 1PA BACK TO BED. LIQUID STOOL IN BSC. PATIENT REQUESTED PAIN MED AND WARM BLANKET. RN NOTIFIED OF MED REQUEST. BLANKETS PROVIDED. CALL LIGHT IN REACH DENIES ANY FUTHER NEEDS AT THIS TIME.
--- NOTE | 2020-10-18 20:20 | NUR ---
IN PATIENT ROOM FOR VITALS AND I&O. PATIENT DENIES ANY FUTHER NEEDS. FRESH WATER PROVIDED. CALL LIGHT IN REACH
--- NOTE | 2020-10-18 20:45 | NUR ---
ASSESSMENT COMPLETE, SCHEDULED MEDS GIVEN, SEE EMAR. pt REPORTS PAIN IS ABOUT THE SAME BEFORE. pt REPOSITIONED IN BED FOR COMFORT, pt DENIES NEED FOR ADDITIONAL PAIN MEDICATION. WILL MONITOR. COCCYX TO ALLEVYN NOTED, DRESSING C/D/I, ALEVYN ALSO NOTED TO LEFT ELBOW. UNABLE TO ASSESS SKIN D/T CURRENT DRESSINGS, WILL MONITOR FOR CHANGES. SCATTERED BRUSING AND SCABS NOTED, PHOTOS IN CHART. REDDENED AREAS/SKIN BREAKDOWN NOTED UNDER BILATERAL BREASTS, SKIN CARE DOWN AND SCHEDULED POWDER APPLIED (SEE EMAR) WELL TO GROIN. 40MLS COLLECTED FROM BLADDER VIA CATHETER, WILL MONITOR. pt REPORTS GENERALIZED ABD PAIN, EDUCATION PROVIDED. pt DENIES RECENT GAS PASSING, WILL MONITOR. CALL LIGHT IN REACH.
--- NOTE | 2020-10-18 23:05 | NUR ---
ANOTHER 40MLS CONCENTRATED YELLOW/YOU URINE WITH BLOOD TINGED COLLECTED FROM MAIER CATHETER, pt BLADDER SCANNED, NOTHING NOTED IN BLADDER. NO KARLY RED BLOOD NOTED AT THIS TIME. TOTAL OF 80MLS COLLETED VIA MAIER CATHETER SINCE START OF SHIFT. TEAM PRIMARY CARE PHYSICIANZEV BHARDWAJ ALSO IN ROOM. pt RESTING IN BED, NO OUTWARD SIGNS OF DISTRESS NOTED, BREATH SOUNDS COURSE WITH SCATTERED WHEEZING. pt DENIES SOB AT THIS TIME. MAINTENANCE FLUIDS OF LR WITH 20MEQ POTASSIUM INFUSING AT 85MLS/HR. DR SWEENEY MADE AWARE OF ALL INFORMATION ABOVE, NO NEW ORDERS RECEIVED AT THIS TIME. PER DR SWEENEY, CALL IF URINE PRODUCTION STOPS. TEAM PRIMARY CARE PHYSICIANZEV BHARDWAJ UPDATED.
--- NOTE | 2020-10-18 23:27 | NUR ---
PATIENT REPOSTIONED ON R HIP WITH PILLOW UNDER L HIP BY THIS BUTANE COMPRESSOR OPERATOR.
--- NOTE | 2020-10-19 00:40 | NUR ---
NEW BAG IV FLUIDS HUNG AND INFUSING PER MD ORDERS, SITE WNL. pt RESTING IN BED WITH EYES CLOSED, RR EVEN AND UNLABORED. NO DISTRESS NOTED. TELE#[address], NSR, HR 70'S. CALL LIGHT IN REACH.
--- NOTE | 2020-10-19 01:40 | NUR ---
37MLS CONCENTRATED YELLOW/BLOOD TINGED URINE COLLECTED VIA MAIER CATHETER, PO INTAKE ENCOURAGED TOLERATED. pt VERBALIZED UNDERSTANDING, APPLE JUICE AND WATER AT BEDSIDE. pt UP WITH PROJECT MANAGEMENT FOR POSSIBLE BM VIA BSC. NO FURTHER NEEDS, WILL CONTINUE TO MONITOR. DISTILLERZEV BHARDWAJ UPDATED.
--- NOTE | 2020-10-19 02:13 | NUR ---
IN PATIENT ROOM TO ROTATE PATIENT. PATEINT REQUESTS TO USE BSC. 1PA TO BSC. NO VOID. BACK TO BED. PATIENT HAD ABOUT A MINUTE OF HEAVY BREATHING AFTER STANDING. RECOVERED ON HER OWN. O2 MONITOR TAKEN OFF WHEN PATIENT WAS AT 96%. PATIENT REQUESTED PAIN MEDS AND STATES HER PAIN IS AN 8 OF 10. CALL LIGHT IN REACH. PILLOW UNDER R HIP.
--- NOTE | 2020-10-19 02:39 | NUR ---
pt GIVEN PRN PAIN MEDICATION FOR 8/10 ABD PAIN, SEE EMAR. pt INSTRUCTED TO CALL IN 30-60MINUTES IF PAIN IS NOT IMPROVED AND ADDITIONAL MEDICATION IS NEEDED. pt VERBALIZED UNDERSTANDING, RECENT NAUSEA RESOLVED. pt IN BED, DENIES SOB AND CHEST PAIN, STATES, "I FEEL FINE, JUST THE PAIN IN MY BELLY. I PASSED SOME GAS". IV ABX INFUSING PER MD ORDERS, SITE WNL. MONITORING URINE OUTPUT, pt DENIES ADDITIONAL NEEDS. CALL LIGHT IN REACH.
--- NOTE | 2020-10-19 04:11 | NUR ---
PATIENT HIPS FLOATED. SMALL URINE OUTPUT NOTED. RN NOTIFIED OF IV PUMP BEEPING.
--- NOTE | 2020-10-19 04:30 | NUR ---
33mls natasha concentrated urine emptied from dougherty catheter, no blood tinge noted at this time. will continue to monitor. prn pain medication given, see emar after PT continues to report 8/10 abd pain. no further needs, call light in reach.
--- NOTE | 2020-10-19 05:35 | NUR ---
SCHEDULED THYROID MED GIVEN, SEE EMAR. pt REPORTS PAIN IS IMPROVED. NO FURTHER NEEDS, CALL LIGHT IN REACH.
--- NOTE | 2020-10-19 07:30 | NUR ---
RECEIVED REPORT AROUND 0700, PT WAS AWAKE IN BED. URINE OUTPUT WAS POOR OVERNIGHT. NO MORE SIGNIFICANT BLEEDING FROM MAIER OR RECTUM NOTED LAST NIGHT. MD SWEENEY IS AWARE.
--- NOTE | 2020-10-19 09:40 | NUR ---
V/S WDL, URINE OUTPUT STILL POOR, PO INTAKE ALSO POOR, IV FLUITS INCREASED TO 125MLS/HR, +1 PITTING EDEMA MATTHEW. LOWER LEGS, GENERALIZED EDEMA LEFT ELBOW. ABD SOUNDS PRESENT, LOWER ABD FIRM AND TENDER TO TOUCH. BREAST WOUNDS WERE CLEANED AND POWDER WAS APPLIED. WILL RE-DO IT AGAIN. WILL CONTINUE TO MONITOR.
--- NOTE | 2020-10-19 11:42 | NUR ---
PATIENT IN BED TALKING TO HER LIFE PARTNER. SHE SAID SHE DIDN'T EAT BREAKFAST BECAUSE SHE DRANK TO MUCH LIQUIDS THROUGH THE NIGHT AND SHE WASN'T HUNGRY. SHE DID DRINK A CHOCOLATE ENSURE ENLIVE THIS MORNING. PRIOR TO ADMISSION, SHE WAS SO NAUSEOUS THAT SHE COULDN'T TOLERATE MUCH FOOD INTAKE, BUT DID DRINK 1-2 ENSURES A DAY. THREE DAYS PRIOR TO ADMISSION SHE WAS VOMITING. SHE NEEDS SOFTER FOODS BECAUSE SHE HAS DIFFICULTY SWALLOWING DUE TO RADIATION TX ON HER LUNGS. CHEWING IS FINE SHE HAS DENTURES. ENCOURAGED HER TO DRINK ANOTHER ENSURE SOME TIME TODAY WHICH WILL GIVE HER ANOTHER 20 GRAMS OF PROTEIN. SHE SAID SHE WILL DO THAT BECAUSE SHE LIKES THEM. CURRENT DIET: FULL LIQUID. SHE STATES SHE WANTS TO KEEP HER WEIGHT BELOW 160 LBS. SHE HAS LOST ABOUT 35 LBS SINCE HER ILLNESS STARTED WHICH I DON'T KNOW WHEN THAT WAS. SHE WENT TO THE DOCTOR ABOUT 3 WEEKS AGO AND WEIGHED 128.5 LBS. ADMIT WEIGHT WAS 136 LBS. PATIENT WOULD BENEIFT FROM 2 ENSURE ENLIVES PER DAY WHILE HERE. WILL CONTINUE TO MONITOR.
--- NOTE | 2020-10-19 11:42 | NUR ---
PT IN ROOM WITH SPOUSE AT BEDSIDE.
--- NOTE | 2020-10-19 11:53 | NUR ---
PT VERY DROWSY, GIVE BLESSING AND WILL CHECK BACK AGAIN
--- NOTE | 2020-10-19 13:11 | NUR ---
SPOKE AT LENGTH WITH PATIENT AND SIG OTHER DENISHA IN ROOM. PATIENT STATES SHE WANTS ME TO EXPLAIN THE OPTIONS FOR GOING HOME. DENISHA IS VERY [place] AND HAS A HARD TIME WITHOUT SEEING MY FACE DUE TO M[place]. USED PAPER ON A CLIPBOARD TO WRITE OUT THINGS HE COULD NOT MAKE OUT. THIS WORKED WELL. DISCUSSED THAT PATIENT WAS ASKING FOR POSSIBLE REHAB. THAT PACKET HAD BEEN SENT TO [facility]. DISCUSSED WHAT USUAL COVERAGE WOULD BE FOR HER MEDICARE AND [employer]URANCE. DISCUSSED OTHER OPTIONS SUCH HOME HEALTH AND OUTPATIENT. ALSO DISCUSSED HIRING HELP IN. [place] FOR HELPING HANDS GIVEN. DISCUSSED THAT [employer] HAS RATING SYSTEM FOR FACILITIES. BOTH ASKED MANY QUESTIONS. HE WAS VERY WORRIED THAT SHE WAS GOING IN TO STAY. I EXPLAINED THAT SHE CAN LEAVE ANYTIME SHE WANTS FROM A FACILITY. ALSO THAT SHE WOULD GET MORE INTENSE THERAPY THERE THAN AT HOME WITH HOME HEALTH OR OUTPATIENT CENTER. WENT OVER HIRING HOME HELP PRIVATELY OR ASKING FOR AN ASSESSMENT THROUGH SENI[facility] AND DISABILITIES FOR HELP THROUGH [facility]. ALSO REMINDED THEM THAT THERE ARE STILL RESTRICTED VISITING FOR ALL FACILITIES. ALL QUESTIONS ANSWERED. THEY WANT TO THINK MORE ON OPTIONS.
--- NOTE | 2020-10-19 13:55 | NUR ---
PT WAS TRANSFERED FROM CHAIR TO BED WITH FWW. PILLOW CASES WERE PUT UNDER BOTH BREASTS. GROIN AREA WAS CLEANSED AND DRIED AND POWDER APPLIED. ALL RIGHT SIDED LOBES HAVE EXP. AND INSP. WHEEZING PRESENT. MATTHEW. LOWER LEG EDEMA HAS INCREASED SOME. ABD IS SOFT BUT TENDER. URINE OUTPUT STILL INADEQUATE.
--- NOTE | 2020-10-19 14:50 | NUR ---
AT 1431 SHAYNE FROM LAB CALLED ABOUT AN ERROR IN THE BLOOD CULTURES. THERE WERE NO GRAM + COCCI FOUND IN THE BLOOD CULTURES. E.COLI AND KLEBSIELLA PNEU. WAS FOUND HOWEVER. MD JACKSON IS AWARE.
--- NOTE | 2020-10-19 18:33 | NUR ---
URINE OUTPUT REALLY HAS NOT BEEN ADEQUATE ALL DAY. MD AWARE. V/S WDL OVERALL, PO INTAKE STILL POOR, SKIN BREAKDOWN ON COCCYZ UNCHANGED, DRESSING WAS CHANGED TODAY WELL. LOBES MOSTLY COARSE WITH INSP. AND EXPI. WHEEZING AT TIMES. ABD LEARNING PROGRAM MANAGER AND FIRM IN THE LOWER QUADRANTS. NO MORE BLEEDING PER RECTUM AND MAIER SO FAR THIS SHIFT.
--- NOTE | 2020-10-19 21:24 | NUR ---
PT ASSESSMENT COMPLETE. PT RESTING IN BED WITH AT BEDSIDE. PT RATES PAIN 7-8/10 TO ABD AND BACK. REQUESTS PRN PAIN MEDICATION WHEN ENOUGH TIME HAS PASSED. PT DENIES NAUSEA. LUNG SOUNDS WITH RHONCI THROUGHOUT, EXPIRATORY WHEEZES TO R LUNG. OCCASIONAL DRY COUGH NOTED DURING ASSESSMENT. PT DENIES SPUTUM PRODUCTION. PT DENIES SOB. SAO2 94% ON RA. BT'S ACTIVE. ABD TENDER TO PALPATION. PT REQUESTS TO USE BSC, HAD SMALL SOFT BM. PT SOB WHEN GETTING BACK TO BED WITH 1PA AND FWW. MAIER CATH DRAINING CLEAR YELLOW URNINE. ALLEVYN FOAM TO COCCYX. SKIN TEAR TO L ELBOW LULI. REDDENED AND OPEN AREAS TO B BREASTS, GROIN, AND NECK CLEANED AND PWDER APPLED ORDERED. PORT ACCESSED, FLUSHED. GOOD BLOOD RETURN NOTED. ABD ADMINISTERED ORDERED. PT REQUESTS 7UP AND FRESH ICE WATER. PROVIDED. PT DENIES FURTHER NEEDS. CALL LIGHT IN REACH.
--- NOTE | 2020-10-20 00:28 | NUR ---
PT RESTING IN BED WITH EYES CLOSED. SNORING AUDBILY. DOES NOT WAKE WHILE MANAGER PRIMARY AT BEDSIDE TO ASSESS MAIER OUTPUT. CALL LIGHT IN REACH.
--- NOTE | 2020-10-20 02:25 | NUR ---
PT ASSESSMENT COMPLETE. PT RESTING IN BED WITH EYES CLOSED. WAKES BRIEFLY WHEN PARK MAINTENANCE TECHNICIAN STATES HER NAME BUT QUICKLY FALLS BACK TO SLEEP. LUNG SOUNDS WITH RHONCI THROUHGOUT. NO COUGH NOTED THROUHGOUT ASSESSMENT. RESPIRATIONS EVEN AND UNLABORED. BT'S HYPOACTIVE. MILD ABD DISTENSION PRESENT. NO ABD TENDERNESS NOTED. 1+ EDEMA NOTED TO RLE, GENERALLIZED EDEMA PRESENT TO BUE. PORT FLUSHED. BRISK BLOOD RETURN NOTED. PT DENIES FURTHER NEEDS. CALL LIGHT IN REACH.
--- NOTE | 2020-10-20 05:26 | NUR ---
PT UTILIZES CALL LIGHT, REQUESTS PRN PAIN MEDICATION FOR BACK AND ABD PAIN. RATES 7/10. PRN OXYCODONE ADMINISTERED. PT EXPERIENCES SHARP L SIDED ABD PAIN THAT SUBSIDES QUICKLY WHILE CYTOLOGY TECHNOLOGIST AT BEDSIDE. PT DESCRIBES BEING WOKEN BY URGE TO VOID. CATHETER CHECKED FOR KINKS, NONE NOTED. PT STATES SHE JUST REPOSITIONED HERSELF. PT DENIES FURTHER NEEDS AT THIS TIME. CALL LIGHT IN REACH.
--- NOTE | 2020-10-20 07:20 | NUR ---
RECEIVED REPORT FROM MAGGIE BROTHERS. THIS RN TO ASSUME CARE WITH [facility] NURSE PRACTITIONER HOME ASSESSMENTS
--- NOTE | 2020-10-20 11:00 | NUR ---
IN TO ASSIST PATIENT WITH BEDSIDE E8SYNIV. PT ABLE TO AMBULATE STEADILY TO BSC. OLD COCCYX ALLEVYN REMOVED, PT WIPED DOWN AND CLEANED, NEW COCCYX ALLEVYN PLACED. PT ABLE TO TRANSFER BACK TO BED AND LAY DOWN. PT DENIES PAIN OR NAUSEA. BM DOCUMENTED.
--- NOTE | 2020-10-20 12:02 | NUR ---
IN TO GIVE PT NEW ANTIBIOTIC AND DC ANTIBIOTIC PER MD ORDERS. PT IS SITTING UP IN THE RECLINER. WATER AT BEDSIDE TABLE. PT DENIES PAIN OR NAUSEA. CALL LIGHT WITHIN REACH.
--- NOTE | 2020-10-20 12:47 | NUR ---
PT IN RECLINER AWAKE AND ALERT. PT ABLE TO ORDER HER LUNCH. ANTIBIOTIC COMPLETED, AND SALINE LOCKED. CALL LIGHT WITHIN REACH.
--- NOTE | 2020-10-20 14:39 | NUR ---
PT SITIING IN RECLINER, IN THE ROOM. PT REPORTS PAIN AT AN 8/10. PAIN PRN MED GIVEN. MINIMAL LEAKAGE NOTED IN BILATERAL LOWER LEGS. SOCKS REMOVED PER PTS REQUESTS. NEW PACKAGE OF SOCKS PLACED AT BEDSIDE TABLE WHEN NEEDED. PT TOLERATED ALL LIQUIDS GIVEN DURING LUNCH. CATHETER OUTPUT MEASURED. NO ADDITIONAL NEEDS AT THIS TIME. ALL QUESTIONS ANSWERED. CALL LIGHT WITHIN REACH.
--- NOTE | 2020-10-20 15:51 | NUR ---
THIS RN HAS REVIEWED [facility] NURSING STUDENTS CHART AND THIS RN AGREES
--- NOTE | 2020-10-20 19:00 | NUR ---
REPORT RECEIVED FROM OFF GOING RN MT AND STUDENT VALERIA.
--- NOTE | 2020-10-20 20:40 | NUR ---
PT ASSESSMENT COMPLETE. PT STATES THAT PAIN IS IMPROVED AFTER EARLIER DOSE OF PRN PAIN MEDICATION. RATES PAIN 6/10 TO ABD AND BACK. PT DENIES SOB OR NAUSEA. LUNG SOUNDS WITH RHONCI AND WHEEZE THROUGHOUT. NO COUGH NOTED DURING ASSESSMENT. BT'S HYPOACTIVE TO ACTIVE. ABD TENDER TO PALPATION. ABD SLIGHTLY DISTENDED. MAIER CATH DRAINING CLEAR YELLOW URINE. ALLEVYN FOAM TO COCCYS AND L ELBOW INTACT. SKIN FOLDS UNDER B BREASTS AND GROIN CLEANSED AND POWDER APPLIED ORDERED. DENTURES REMOVED AND SOAKING FOR THE NIGHT. PORT FLUSHED WITH NS AND HEP LOCKED. GOOD BLOOD RETURN NOTED. PT DENIES FURTHER NEEDS AT THIS TIME. CALL LIGHT IN REACH.
--- NOTE | 2020-10-20 23:22 | NUR ---
PT RESTINGIN BED WITH EYES CLOSED. RESPIRATIONS EVEN AND UNLABORED. PT DOES NOT WAKE WHILE COMPUTER PROGRAMMER ANALYST AT DOORWAY. CALL LIGHT IN REACH.
--- NOTE | 2020-10-21 01:50 | NUR ---
PT RESTINGIN BED WITH EYES CLOSED. RESPIRATIONS EVEN AND UNLABORED. PT APPEARS TO BE SLEEPING. CALL LIGHT IN REACH.
--- NOTE | 2020-10-21 04:05 | NUR ---
PT RESTING IN BED WITH EYES CLOSED. RESPIRATIONS EVEN AND UNLABORED. APPEARS TO BE SLEEPING. CALL LIGHT IN REACH.
--- NOTE | 2020-10-21 06:35 | NUR ---
PT ASSESSMENT COMPLETE. PT STATES THAT SHE SLEPT VERY WELL. PT RATES PAIN 8/10 REQUESTS PRN PAIN MEDICATION, ADMINISTERED SEE EMAR. PT DENIES SOB DESPITE AUDIBLE WHEEZING. LUNG SOUNDS WITH WHEEZES THROUHGOUT L LUNG, WHEEZES AND RHONCI AUSCULTATED THROUHGOUT R LUNG. NO COUCH NOTED DURING ASSESSMENT.SAO2 95% ON RA. PT DENIES NAUSEA. BT'S ACTIVE, TYMPANIC AND HIGH PITCHED. ABD TENDER TO PALPATION. MODERATE DISTENSION PRESENT. MAIER CATH DRAINING CLEAR YELLOW URINE. PORT IS ACCESSED AND HEP LOCKED. PT STANDS FOR DAILY WEIGHT, BECOMES DYSPNEIC ON EXERTION BUT RECOVERS QUICKLY. PT DENIES FURTHER NEEDS AT THIS TIME. CALL LIGHT IN REACH.
--- NOTE | 2020-10-21 08:15 | NUR ---
REPORT RECIEVED FROM NIGHT RN AND PT. CARE RESUMED. PT. IS ALERT AND ORIENTED. SHE STATES HER PAIN IS TOLERABLE SINCE SHE HAD HER PAIN MED. AT 0600. RHONCHI PRESENT THROUGHOUT LUNGS AND EXP. WHEEZES IN THE UPPER LOBES. PT. HAS A PRODUCTIVE COUGH WITH GREEN THICK SPUTUM. STATES IT IS NORMAL. ABD. IS TENDER TO PALP. IN ALL QUADS. AREA UNDER BREASTS HAVE DRIED BLOOD AND GREEN STICKY DISCHARGE. CLEANED AND REAPPLIED DESENEX POWDER AND PILLOW CASES. PT. STATES IT IS VERY PAINFUL TO TOUCH. GROIN CLEANED AND OPEN AREAS OF SKIN PRESENT. APPLIED DESENEX. MAIER CARE PERFORMED. PT. ATE APPROX. 10% OF BREAKFAST AND STATES SHE HAS LITTLE APPETITE. PORT FLUSHED, RETURNED BLOOD AND HEP. LOCKED. DISCUSSED POC AND SAFETY. PT. LEFT RESTING IN BED WITH CALL LIGHT IN REACH.
--- NOTE | 2020-10-21 14:01 | NUR ---
PT. DENIES PAIN AND NAUSEA. LUNGS CLEAR THROUGHOUT. SHE HAS BEEN UP FREQUENTLY TO VOID. DRINKING AND EATING WELL. SHE IS NOT COMFORTABLE IN THE CHAIR AND HAS BEEN IN BED MOST OF THE DAY. IV SITE WNL. PT. LEFT RESTIN IN BED WITH CALL LIGHT IN REACH.
--- NOTE | 2020-10-21 14:30 | NUR ---
PT. IS ALERT AND ORIENTED. PORT IS HEP. LOCKED. PILLOWCASES UNDER BREASTS CHANGED AND SATURATED WITH BLOOD AND YELLOW DRAINAGE. LUNGS COARSE THROUGH OUT AND EXP. WHEEZES SCATTERED. BLE AND LT. ARM EDEMA REMAIN UNCHANGED. PT. HAS BEEN UP AND AMBULATED TO THE CHAIR WITH A 1PA. SHE DID NOT WANT TO USE THE WALKER AND WAS NOT STEADY. DISCUSSED SAFETY. VOIDING QUANITY SUFFICIENT. VITALS STABLE. PT. LEFT RESTING WITH CALL LIGHT IN REACH.
--- NOTE | 2020-10-21 18:33 | NUR ---
PT. HERE FOR INTER-ABDOMINAL FREE AIR AND A UTI. SKIN IS FRAGILE AND SKIN BREAK DOWN AND YEAST PRESENT UNDER BREASTS AND GROIN. UNDER BREASTS IS BLOODY AND VERY PAINFUL. PT. UO IS QUANITY SUFFFICIENT FOR THIS SHIFT AND MAIER PATIENT. LUNGS ARE COARSE THROUGHOUT WITH EXP. WHEEZES. PT. BEING TREATED FOR LUNG CANCER AND HAS A CHEMO. MED. IN KITS THAT HAS NOT BEEN STARTED. NOT STABLE ON HER FEET AND IS 1PA WITH FWW. PORT IS HEP. LOCKED. CT SCHEDULED FOR THIS EVENING AND BLOOD CULTURES RE-DRAWN DUE TO POSITIVE BLOOD CULTURE.
--- NOTE | 2020-10-21 19:15 | NUR ---
REPORT RECEIVED FROM OFFGOING RNSINAN. PT TO CT WITH FUR DRESSING SUPERVISOR.
--- NOTE | 2020-10-21 21:54 | NUR ---
PT ASSESSMENT COMPLETE. PT RESTING IN BED AWAKE, WATCHING TV. PT TALKING ABOUT IT BEING MORNING AND WOULD LIKE TO GET UP TO EAT BREAKFAST. PT REORIENTED TO TIME OF DAY. BED ALARM PLACED. PT RATES PAIN 8/10 PRN OXYCODONE ADMINISTERED, SEE EMAR. PT DENIES SOB AND NAUSEA. LUNG SOUNDS WITH RHONCI AND WHEEZE THROUGHOUT R LUNG, WHEEZES THROUHGOUT ON L LUNG. NO COUGH NOTED DURING ASSESSMENT. BT'S ACTIVE. MODERATE DISTENSION NOTED. ABD TENDER TO PALPATION. BLE WITH 3+ EDEMA, ACTIVELY WEEPING, NEW CHUX PLACED UNDER LEGS. LEGS ELEVATED ON PILLOW. ALLEVYN FOAM TO COCCYX AND L ELBOW C/D/I. AREAS OF EXCORIATION AND REDNESS CLEANSED, DRIED, AND POWDERED ORDERED. PT TOLERATED WELL. PORT HEP LOCKED. IV TO L AC FLUSHED, WNL.
--- NOTE | 2020-10-22 00:15 | NUR ---
PT RESTING IN BED WITH EYES CLOSED. RESPIRATIONS EVEN AND UNLABORED. PT APPEARS TO BE SLEEPING. DOES NOT WAKE WHILE RN CLINICAL DOCUMENTATION AT DOORWAY. CALL LIGHT IN REACH.
--- NOTE | 2020-10-22 03:38 | NUR ---
PT ASSESSMENT COMPLETE. PT UTLIZES CALL LIGHT, REQUESTS PAIN MEDICATION FOR 8/10 PAIN TO ABD. OXYCODONE ADMINISTERED, SEE EMAR. PT ALERT AND ORIENTED AT THIS ASSESSMENT. NO LONGER DISORIENTED TO TIME. ASSESSMENT OTHERWISE UNCHANGED AT THIS TIME. PT DENIES FURTHER NEEDS. CALL LIGHT IN REACH, BED ALARM REMAINS ACTIVE.
--- NOTE | 2020-10-22 06:38 | NUR ---
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 PT TOLERATED WELL. PT REQUESTS TO GET UP TO CHAIR. BED LINENS CHANGED. PT DENIES FURTHER NEEDS. CALL LIGHT IN REACH.
--- NOTE | 2020-10-22 07:40 | NUR ---
this rn in pts room per pt request to give pt pain meds. pt reporting pain at 12/08. this rn provided with 2 tabs of 5mg oxy tablets
--- NOTE | 2020-10-22 07:55 | NUR ---
PATIENT UP IN CHAIR WHEN THIS GREEN BUILDING ENGINEER WENT INTO ROOM. AM CARE PROVIDED. BREAKFAST ORDERED. PATIENT NOW ON FULL LIQUIDS. PATIENT WILL SHOWER AFTER BREAKFAST. PATIENT ASKED FOR PAIN MEDS. RN AWARE. CALL LIGHT IN REACH NOTHING ELSE NEEDED AT THIS TIME
--- NOTE | 2020-10-22 09:05 | NUR ---
this rn in pts room with doctor of pharmacy mara to pass morning meds and do assessment. pt sitting up in chair and states that her pain hasn't improved and is still residing in left lower leg. pt also talking with zaria from case management, pt deciding to go to [facility] for some therapy after hospital stay
--- NOTE | 2020-10-22 09:12 | NUR ---
RECEIVED CALL FROM BANDAR AT [facility] THAT THEY CAN PROBABLY TAKE PATIENT BUT SHE WOULD NEED TO BRING HER CANCER MEDS. STAFF STATED AT REPORT THAT PATIENT HAS NOT DECIDED WHAT SHE WANTS TO DO AGAIN AT DISCHARGE. SPOKE WITH PATIENT IN ROOM. SHE IS VERY TEARY. STATES SHE REALLY WANTS TO GO TO REHAB BUT "DENISHA IS AGAINST IT". MEANING HER SIG OTHER. I ASKED WHAT HIS WORRIES ARE OR IF THERE IS ANYTHING I CAN DO TO ANSWER HIS CONCERNS. SHE STATES "HE JUST THINKS IF I GO THAT I WON'T COME HOME". WE DISCUSSED AGAIN THAT SHE HAS MADE GAINS HERE WITH THERAPY AND THERE IS NOT REASON SHE CANNOT CONTINUE THAT IN ORDER TO BE SAFER AT HOME. I ASKED HER WHAT SHE WANTS TO DO, THAT ULTIMATELY IT IS HER DECISION. ALSO IF SHE WOULD FEEL SAFE IN HER ACTIVITIES IF SHE WENT HOME. SHE STATES "NO I AM NOT READY TO DO ALL MY STUFF ALONE" . WE DISCUSSED THAT SHE CAN ALWAYS LEAVE THE FACILITY IF SHE WANTS AT ANY TIME. ALL THESE THINGS ARE HER DECISIONS AND NO ONE IS MAKING HER DO ANYTHING. I STRESSED WE CAN COME UP WITH A PLAN FOR HOME IF SHE WANTS TO GO STRAIGHT THERE. SHE ASKED IF SHE CAN CALL DENISHA. I TOLD HER I COULD GIVE HERE SOME TIME, BUT WE NEED HER TO MAKE A FINAL DECISION SOMETIME IN THE NEXT HOUR OR SO.
--- NOTE | 2020-10-22 09:51 | NUR ---
PATIENT UP IN THE CHAIR. VITALS AND I&O'S CHARTED. AM CARE DONE. CALL LIGHT IN REACH PATIENT WILL SHOWER AFTER SHE RELAXES DUE TO BEING UPSET ABOUT D/C PLAN
--- NOTE | 2020-10-22 09:54 | NUR ---
PATIENT HAS DECIDED SHE DOES WANT REHAB AT [facility]. SHE HAS HAD BOTH COVID SHOTS LAST ONE Jul. DISCUSSED WITH DR JACKSON, HE STATES HE WILL DISCHARGE HER ON THURSDAY. CALLED AND LEFT MESSAGE WITH BANDAR AT [facility] THAT WE WILL PLAN ON THURSDAY DISCHARGE. UPDATED PATIENT AND NURSING STAFF.
--- NOTE | 2020-10-22 11:00 | NUR ---
PATIENTS SIG OTHER IS IN ROOM AND HAS TOLD NURSE PATIENT IS NOT GOING TO SNF. WENT TO ROOM AND SPOKE WITH DENISHA AND PATIENT. DISCUSSED WHAT DISCHARGE PLAN IS IN PLACE AT THIS TIME. HE STATES "NO WAY IS SHE GOING TO [facility]". STATES HE "HEARD SOME BAD STUFF". WHEN ASKED PATIENT SHE IS QUIET AND DEFERS TO HIM. ASKED IF HE HAD ANY THOUGHTS ON OTHER SNFS. HE WANTS HER TO GO "OUT TO [facility]". EXPLAINED THAT THAT FACILITY IS NOT A SNF. EXPLAINED TO HIM THE DIFFERENCES. ALSO WENT OVER OTHER SNFS IN THE SURROUNDING ARE[place]. THIS WAS ALL EXPLAINED ON THURSDAY. WE DISCUSSED THAT I ASKED THEM TO HAVE A DECISION TODAY IT TAKES TIME TO ARRANGE PAPERWORK, GET AUTHS FROM INSURANCE ETC. DENISHA STATES "SHE ISN'T GOING ANYWHERE ANY TIME SOON". I ASKED WHAT HE MEANT. HE STATES "I WILL DECIDE WHEN SHE WILL BE DISCHARGED". I EXPLAINED THAT ACTUALLY THE DOCTOR WILL DECIDE WHEN SHE IS MEDICALLY STABLE TO DISCHARGE. WE ENCOURAGE PATIENT TO INVOLVE ANYONE THEY CHOOSE TO HELP HER MAKE HER DECISIONS BUT THAT COVERAGE FROM INSURANCE DEPENDS ON THE MEDICAL NECESSITY TO BE HERE. I ASKED IF THEY WOULD LIKE ANOTHER COPY OF THE FACILTIES IN THE AREAS. THIS WAS GIVEN. I ALSO GAVE THEM A PRINT OUT OF THE RATINGS WITH CMS FROM THE [employer] SITE. EXPLAINED THAT THIS IS THE RATINGS OF TODAY. ASKED THAT THEY LET US KNOW TODAY IF POSSIBLE SO WE CAN START THE PROCESS IF THEY ARE NOT WANTING [facility]. ENCOURAGED HIM TO CALL THE FACILITES IF HE WANTS. HE STATES "NO I AM GONNA GO OVER TO THEM". EXPLAINED THAT I AM NOT SURE HE CAN ENTER THEM DUE TO COVID THAT HE SHOULD CALL THEM FIRST. PATIENT THANKED ME FOR BRINGING THE PAPERWORK.
--- NOTE | 2020-10-22 13:17 | NUR ---
PATIENT UP IN CHAIR EATING LUNCH IN ROOM. NOTHING ELSE NEEDED. THIS INFORMATION SYSTEMS AUDIT MANAGER WILL COME BACK FOR TRAY AFTER SHE IS FINISHED EATING. CALL LIGHT IN [facility]
--- NOTE | 2020-10-22 14:30 | NUR ---
CHECKED IN WITH PATIENT AND DENISHA. THEY HAVE LOOKED AT SNF RATINGS I GAVE THEM AND MET WITH DR JACKSON. THEY WOULD LIKE TO TRY GETTING PATIENT INTO [facility] IN [place]. DISCUSSED THAT I CAN SEND A PACKET AND CALL THEM.
--- NOTE | 2020-10-22 14:34 | NUR ---
THIS MASTER YACHT HELPED PT WALK PATIENT IN ROOM. PATIENTS BOTH LEGS WEEPING AND FEET ARE ICE COLD. PATIENT HAS A RED SPOT ON RIGHT FOOT TOE. RN NOTIFIED. PATIENT BACK IN BED CALL LIGHT IN Reach
--- NOTE | 2020-10-22 15:13 | NUR ---
FAXED REFERRAL PACKET TO [facility] [phone]. RECEIVED FAX CONFIRMATION @ 251PM. CALLED AND LEFT MESSAGE FOR [facility] IN ADMITTING.
--- NOTE | 2020-10-22 16:35 | NUR ---
PATIENT IN BED APPEARS TO BE SLEEPING
--- NOTE | 2020-10-22 17:10 | NUR ---
THIS RN IN PTS ROOM TO CHECK ON PT. PT SITTING IN BED AND APPEARS TO BE DOING WELL. PT STATES THAT SHE FEELS LIKE SHE NEEDS MORE PAIN MEDS FOR A PAIN OF 7/10 AT THIS TIME
--- NOTE | 2020-10-22 18:44 | NUR ---
PATIENT IN CHAIR EATING DINNER. VS AND I&O'S CHARTED. CALL LIGHT IN REACH MAIER EMPTIED.
--- NOTE | 2020-10-22 19:12 | NUR ---
RECEIVED REPORT FROM ZEV AMOR. pt SITTING IN CHAIR, EATING DINNER.
--- NOTE | 2020-10-22 22:00 | NUR ---
IN TO DO ASSESSMENT. pt RESTING IN CHAIR WITH EYES CLOSED, RESPIRATIONS REGULAR AND UNLABORED. WOKE TO VOICE. LEGS WEEPING. SKIN CARE DONE. pt REPORTED PAIN WITH LEGS. AMBULATED TO BED 2PA. MAIER CARE DONE. WOUND CARE DONE. pt REPORTED IMPROVED BREATHING POST NEB. PAIN 7/10, WORSE WHEN WALKING. PRN GIVEN (SEE MAR). MEDICATIONS GIVEN. pt SETTLED IN BED. PM CARES DONE. CALL LIGHT WITHIN REACH. LEGS ELEVATED.
--- NOTE | 2020-10-22 23:37 | NUR ---
ROUNDED ON pt. RESTING IN BED WATCHING TV. CHANGED ABD PADS TO LEGS, BOTH PADS HAD MODERATE DRAINAGE, SEROUS. pt REPORTED PAIN HAS IMPROVED. NO REQUESTS AT THIS TIME. CALL LIGHT WITHIN REACH.
--- NOTE | 2020-10-23 01:30 | NUR ---
ROUNDED ON pt. RESTING IN BED WATCHING TV. REPORTED 7/10 PAIN, PRN GIVEN (SEE MAR). ASSESSMENT DONE. LEG SWELLING IMPROVED WITH ELEVATION. pt REPORTED HER PAIN IN HER LEGS HAS IMPROVED WELL. CHANGED ABD PAD TO BOTH LEGS, MODERATE SEROUS DRAINAGED ON DRESSING. LEGS CONTINUE TO WEEP. NO FURTHER REQUESTS AT THIS TIME. CALL LIGHT WITHIN REACH.
--- NOTE | 2020-10-23 03:49 | NUR ---
ROUNDED ON pt. SITTING IN BED WATCHING TV. PAIN OKAY AT THIS TIME. CALL LIGHT WITHIN REACH.
--- NOTE | 2020-10-23 05:36 | NUR ---
IN TO DO MEDS. pt LAYING AWAKE IN BED. PAIN 8/10, PRN GIVEN WITH SCHEDULED MEDICATIONS. ASSISTED pt TO CHAIR. ABD PADS HAD MODERATE DRAINAGE, SEROUS. NEW ABDS APPLIED. WARM BLANKETS. CALL LIGHT WITHIN REACH.
--- NOTE | 2020-10-23 07:26 | NUR ---
PT SITTING UP IN CHAIR, APPEARS TO BE SLEEPING SOUNDLY AT TIME OF SHIFT EXCHANGE. BREATHING EVEN AND UNALABORED CALL LIGHT AND NEEDED ITEMS IN REACH. LEFT UNDISTURBED.
--- NOTE | 2020-10-23 10:25 | NUR ---
PT IN CHAIR. RN PRECIOUS AND PT KELLY WORKING WITH PATIENT. CALL LIGHT WITHIN REACH. NO FURTHER NEEDS AT THIS TIME.
--- NOTE | 2020-10-23 11:35 | NUR ---
PT HAS REMAINED UP IN THE CHAIR ALL MORNING. OTHER RN REPORTS TAKING HER TO TOILET AND CHANGING DRESSING ON THE COCCYX DUE TO BM SOILING THE AREA. PT SITTING NOW IN HER CHAIR AGAIN DOZING AT TIMES APPEARS COMFORTABLE.
--- NOTE | 2020-10-23 11:51 | NUR ---
PT USED BSC WITH FWW AND ONE PERSON FULL ASSIST. PT NEEDS CHUX REPLACED EVERY 30-60 MINUTES. ZEV LANG NOTIFIED. PT AWAKE IN CHAIR. PT REFUSED SHOWER TODAY. CALL LIGHT WITHIN REACH. NO FURTHER NEEDS AT THIS TIME.
--- NOTE | 2020-10-23 13:00 | NUR ---
Notified by Rn, pts JOE (friend) has arrived. In and spoke with Thea and Mirza. Mirza stating he does not want Thea to go to [facility] in [place]. When I asked why, he states he had two friends pass away there and they did not receive good care. He wants pt to got to stay in the hospital or go to [facility] in [place] or [facility] in [place]. Discussed medicare will pay the first 20 days, if she is unable to leave the SNF by then, [employer] will not cover out of state. He states he checked with his niece and he can appeal and they will pay. Discussed I have never seen [employer] pay out of state as it is [facility]. Discussed this is his right to appeal, but to please understand they may have to pay out of pocket. We also discussed why Thea cannot stay at the hospital. The reasons she was admitted have now been resolved or are in the process. We cannot work up neuro issues as we do not have a neurologist and this would all be considered OP. I explained we have not let the bed at [facility] go as we have not received auth. from [facility]. I have called [facility], chart was faxed yesterday, we have not received a response. I explained we have a safe dc plan in place. Mirza states he will appeal to Medicare if we attempt to sent Thea home. He would accept placement to [facility] in [place]. I explained I can check if they have a bed, and send the chart if they do. I again stated, if there is not a bed, there is a safe discharge plan in place to [facility](where Thea had agreed to go). Thea now states she will follow whatever Mirza wants and will not go to [facility]. Discussed, I will attempt to call [facility] again. I will also call [facility] and check for a bed.
--- NOTE | 2020-10-23 13:16 | NUR ---
RECEIVED REPORT FROM DAY SHIFT RN. PATIENT IS RESTING IN BED. MATA RN FROM CASE MANAGEMENT IN ROOM. NO NEEDS NOTED. CALL LIGHT IN REACH.
--- NOTE | 2020-10-23 13:45 | NUR ---
PATIENTS SCHEDULED MEDICATIONS GIVEN PER ORDER. PATIENT IS RESTING IN BED. PATIENT RATES PAIN AT AN 8/10. PATIENT GIVEN PRN PAIN MEDICATION PER ORDER. PATIENT DENIES ANY NAUSEA. VITALS TAKEN AND RECORDED. ASSISTED PATIENT TO THE BATHROOM A 1PA W/FWW. PATIENT WAS ABLE TO VOID. PATIENT IS NOW BACK IN BED RESTING. PATIENT DENIES ANY FURTHER NEEDS. PATIENTS SO REMAINS IN THE ROOM. CALL LIGHT IN REACH.
--- NOTE | 2020-10-23 14:00 | NUR ---
Attempted to call [facility] x 2, 0 answer. Called and spoke with Chavez at [facility] in [place]. Updated pt will dc tomorrow and has changed her mind about placement. Pt will need PT/OT/IV antibiotics. Chavez states she will review chart and let me know. Updated pt will transport per van and upon dc from SNF will return home with POA.
--- NOTE | 2020-10-23 14:54 | NUR ---
PATIENT ASSISTED TO THE RESTROOM A 1PA W/FWW. PATIENT WAS ABLE TO VOID. PATIENT HAD X1 SMALL LOOSE BM. PATIENT IS NOW RESTING IN BED. PATIENT DENIES ANY FURTHER NEEDS. CALL LIGHT IN REACH.
--- NOTE | 2020-10-23 14:56 | NUR ---
PT LAYING IN BED, APPARENTLY TRYING TO REST. REQUESTED I COME BACK AGAIN LATER. WILL FOLLOW NEEDED
--- NOTE | 2020-10-23 16:15 | NUR ---
Called to speak with Chavez, she has gone home from [facility] fax [phone]. Chart did not go through when faxed. Chart refaxed.
--- NOTE | 2020-10-23 16:45 | NUR ---
PATIENT ASSISTED TO THE RESTROOM A 1PA W/FWW. PATIENT WAS ABLE TO VOID AND HAD X1 EA SM LOOSE BM. PATIENT IS BACK IN BED RESTING. SCHEDULED MEDICATIONS GIVEN PER ORDER. PATIENT REPORTS 6/10 PAIN. PRN TYLENOL GIVEN PER ORDER. WATER REFILLED. NO FURTHER NEEDS NOTED. CALL LIGHT AND BELONGINGS WITHIN REACH.
--- NOTE | 2020-10-23 17:19 | NUR ---
REPORT RECEIVED FROM ZEV LUO. PT CALLED TO HAVE PHONE MOVE WITHIN REACH SHE HAD A CALL.
--- NOTE | 2020-10-23 19:52 | NUR ---
REPORT RECEIVED FROM DAY SHIFT RN. PT LYING IN BED RESTING WITH EYES CLOSED. RESPIRATIONS EVEN. LEFT TO REST AT THIS TIME. WHITE BOARD UPDATED. CALL LIGHT IN REACH.
--- NOTE | 2020-10-23 21:30 | NUR ---
EVENING ASSESSMENT COMPLETE. SCHEDULED MEDS ADMINISTERED PER EMAR. NO SWALLOWING ISSUES NOTED. PT REPORTS PAIN TOLERABLE AT THIS TIME. DENIES SOB. PORT PULSATILE FLUSH WITH NS AND HEP LOCKED PER PROTOCOL. BRISK BLOOD RETURN NOTED. SMALL AMOUNT SEROUS DRAINAGE WEAPING FROM BLE. CHUCKS CHANGED. SKIN CARE COMPLETE. RT IN ROOM FOR TX. PT DENIES QUESTIONS OR CONCERNS. CALL LIGHT IN REACH.
--- NOTE | 2020-10-23 22:25 | NUR ---
PT UP TO BSC WITH 1PA AND FWW TO VOID AND HAVE LIQUID BM. GAIT WEAK AND UNSTEADY AT TIMES. ASSIST WITH [facility]. BACK TO BED, MOIZ WELL. BLE NOTED TO BE WEAPING, SEROUS DRAINAGE. SKIN CARE COMPLETE. CLEAN LINENS AND GOWN PROVIDED.
--- NOTE | 2020-10-23 23:37 | NUR ---
PRN FOR PAIN ADMINISTERED PER REQUEST. ASSISTED PT TO REPOSITION IN BED. DENIES FURTHER NEEDS. CALL LIGHT IN REACH.
--- NOTE | 2020-10-24 02:14 | NUR ---
PT RESTING IN BED WITH EYES CLOSED, NAD. RESPIRATIONS EVEN. CALL LIGHT IN REACH.
--- NOTE | 2020-10-24 04:52 | NUR ---
PT AWAKE IN BED WATCHING TV. 1PA TO [facility] TO VOID. ASSIST WITH [facility]. DAILY WEIGHT OBTAINED. BACK TO BED, MOIZ WELL. INCREASED RESPIRATIONS AND PAIN WITH MOVEMENT. LEFT ELBOW AND BLE WEEPING SEROUS FLUID. SKIN CARE DONE. CLEAN GOWN AND LINENS PROVIDED. PRN FOR PAIN ADMINISTERED PER EMAR. SCHEDULED MEDS ADMINISTERED. VS AND I&O COMPLETE. WARM BLANKET PROVIDED. PT DENIES FURTHER NEEDS. CALL LIGHT IN REACH.
--- NOTE | 2020-10-24 06:40 | NUR ---
MORNING LABS DRAWN PER PROTOCOL. SCHEDULED MEDS ADMINISTERED PER EMAR. PT REPORTS PAIN IS TOLERABLE AT THIS TIME. ASSISTED TO REPOSITION IN BED. NO FURTHER NEEDS.
--- NOTE | 2020-10-24 08:50 | NUR ---
Rapid swab collected
--- NOTE | 2020-10-24 09:30 | NUR ---
HIM12 letter given to patient and read to her. Notified as per meeting with this am, pt will be discharged today. As per my conversation with her life partner, yesterday, he is refusing for her to go to [facility] in [place]. I am still attempting to place in [facility] or [facility] in [place], [place]. I have not heard if these two SNFs will accept her. She is again stating she will go to [facility], but Mirza won't let her. She declines to sign the HINN 12 after I read it for her. I let her know this is ok as I will write on the bottom of the notice she declined to sign.
--- NOTE | 2020-10-24 10:03 | NUR ---
PT WAS LAYING IN BED. MORNING ASSESSMENT COMPLETED. PT LUNG SOUNDS WERE CLEAR. PT IS ON ROOM AIR. BOWEL TONES WERE ACTIVE. PT DENIES NUMBNESS AND TINGLING IN EXTREMITIES. PT LEGS WERE RED AND WEEPING. PT DENIES PAIN IN LEGS. PT DID STATE 7/10 PAIN IN HER BACK AND ABDOMINAL AREA. 10 MG OF OXYCODONE WAS GIVEN. MORNING MEDICATIONS WERE GIVEN. SEE EMAR. PT REFUSED THE SENNA AND MIRALAX BECAUSE SHE IS HAVING LOOSE STOOL ALREADY. PT HAD NO FURTHER NEEDS AT THIS TIME.
--- NOTE | 2020-10-24 10:15 | NUR ---
0850. PT DENIES THE NEED TO URINATE. PT FINISHED BREAKFAST. PT ATE 25% OF HER MEAL.
--- NOTE | 2020-10-24 10:16 | NUR ---
PT HAD A LIQUID BOWEL MOVEMENT IN THE TOILET WELL A X1 URINATION. PT IS NOW WORKING WITH PT.
--- NOTE | 2020-10-24 11:00 | NUR ---
Met with pt, Mirza, and Dr. Chino. Dr. Chino is explaining why pt no longer requires IP treatment. Mirza stating he feels she has an ulcer and is weak. Dr. Chino explaining she was admitted for UTI and this is being treated. Other issues are OP and she will need to see her PCP to follow up with any concerns. Mirza again stating he will not let her go to [facility] in [place]. I again explained, I had orginally sent her chart to [facility] as this is where Thea wanted to go as she did not want placement at [facility] in [place]. She requested the next closest SNF. I have also sent her chart to [facility] in [place] and [facility] in [facility] after her so complained he did not want her to go there. Mirza stating she will not be going to [facility]. I attempted to explain if 0 of the Or SNF's accept her this is our only option. He states he has already called medicare and filed a complaint. I also informed him that is his right, he then states he was assured she would be able to remain in the hospital for 48 hours as it would take this long for the appeal. Mirza states if [place] SNFs decline, I just need to continue to search for other SNFS. I explained at I have found a safe discharge for her. At this point Thea became upset and asked Mirza to stop being so stubborn and she would go to [facility]. He again states, no and he will not allow her to go to [facility]. At this point Dr. Chino explained pt will be discharged today and they can make a decision to go home or to [facility]. We can assist him with medicare appeal if needed. Mirza denies need and states he has already started appeal process.
[2020-10-24] MEDS ORDERED: OXYCODONE HCL5 MG PO (11:52)
--- NOTE | 2020-10-24 12:40 | NUR ---
Notified by Augustin Byrne, for both [facility]. They will not accept this patient due to cost of ca meds and they do not feel pt will be able to meet criterial in 20 days. Mirza is stating pt may only stay for 14 days. Chavez gave her phone number in case Mirza would like to speak with her. To pts room and updated Mirza and Thea. Mirza now stating he would be willing to accept [facility]. Notified I will send 1 more chart. Called Debbie at [facility] She request chart and will let me know if they can accept.
--- NOTE | 2020-10-24 12:49 | NUR ---
DR JACKSON IN WITH PT, WILL CHECK BACK AGAIN
--- NOTE | 2020-10-24 13:00 | NUR ---
Attempted to call [facility] x 2. Reached a person who stated they are now completing intakes. Asked if they have reveiwed Thea's chart. He states he is unsure as there intake person is no longer there. They are reviewing charts which arrived this week.
--- NOTE | 2020-10-24 13:40 | NUR ---
PT ASSISTED TO BSC, VOIDED AND HAD LOOSE BM. ALLEVYN DRESSING SOILED AFTER BM, REPLACED. PT RATING PAIN 7/10, GIVEN 10MG OXYCODONE. PT DENIES OTHER NEEDS AT THIS TIME.
--- NOTE | 2020-10-24 14:37 | NUR ---
Notified by [facility] at [facility] will accept this pt tomorrow. I will set up wc van for 10:[address] transport[address] orders from [address] Chino and orders, PASSR, rx faxed to Debbie. Transportation scheduled and Leyla aware this is out of pocket expense which will need paid when she get into the van. It is will be around $90.00.
--- NOTE | 2020-10-24 16:05 | NUR ---
PT WAS LAYING IN BED RESTING. AFTERNOON ASSESSMENT COMPLETED. NO MAJOR CHANGES FROM THIS MORNING ASSESSMENTS. PT LEGS LOOKED A LOT BETTER THIS MORNING. PT STATED IT ONLY HURT WHEN HER LEGS WERE TOUCHED. THEY WEREN'T WEAPING BAD THEY WERE THIS MORNING. PT HAS HAD TWO LIQUID BM'S TODAY. PT WAS ABLE TO GET PLACEMENT IN A CARE FACILITY IN [place] TOMORROW. PT HAD NO FUTHER NEEDS AT THIS TIME.
--- NOTE | 2020-10-24 16:53 | NUR ---
PT WAS LAYING IN BED. AFTERNOON MEDICATIONS PASSED. PT STATED SHE DID NOT HAVE TO GO TO THE BATHROOM BUT THOUGHT SHE WOULD TRY ANYWAY. WE STARTED OFF WALKING TO THE BATHROOM BUT PT DECIDED DUE TO WEAKNESS SHE WOULD USE THE BEDSIDE COMMODE INSTEAD. PT HAD URIN OUTPUT WELL A SMALL LIQUID BM. PT IS BACK IN BED WITH NO FURTHER NEEDS AT THIS TIME.
--- NOTE | 2020-10-24 18:28 | NUR ---
PT WAS SITTING ON THE EDGE OF THE BED FINISHING DINNER. SHE HAD A SMEAR BM IN BED. PT WAS CLEANED UP AND A NEW ALIVIN WAS PLACED ON HER COCCYX. PT WAS FOATED ON THE RIGHT SIDE TO HELP RELEIVE THE PRESSURE ON THE AREA. PT VITAL SIGNS AND I&OS WERE TAKEN AND WNL. PT SOCKS WERE REMOVED. PT STATED THEY WERE MAKING HER FEET HURT. PT WAS COMFORTBLE BACK IN BED AND FINISHED EATING DINNER. NO FURTHER NEEDS AT THIS TIME.
--- NOTE | 2020-10-24 19:35 | NUR ---
RECEIVED REPORT FROM DAY SHIFT RN. PATIENT IS RESTING IN BED WITH EYES CLSOED, RR 18. CALL LIGHT IN REACH.
--- NOTE | 2020-10-24 20:40 | NUR ---
CALL LIGHT ANSWERED, 1PA WITH FWW TO BSC FOR VOID AND LOOSE BM. pt UNSTEADY ON FEET, FEET SLIDING INITIALLY UPON STANDING. BACK IN BED. pt REQUESTING PAIN MEDICATION. PRIMARY RN NOTIFIED.
--- NOTE | 2020-10-24 20:56 | NUR ---
ASSESMENT COMPLETED. VITALS TAKEN AND RECORDED. INTAKE AND OUPUT RECORDED. MEDICATIONS GIVEN PER ORDER. PATIENT RATES PAIN AT A 8/10 IN HER BACK. PATIENT GIVEN PRN PAIN MEDICATION. PATIENT DENIES ANY NAUSEA. PATIENT BOOSTED IN BED. PATIENT DENIES ANY FURTHER NEEDS. CALL LIGHT IN REACH.
--- NOTE | 2020-10-24 22:29 | NUR ---
PATIENT IS RESTING IN BED WITH EYES CLOSED, RR 16. CALL LIGHT IN REACH.
--- NOTE | 2020-10-24 23:37 | NUR ---
PATIENT IS RESTING IN BED WITH EYES CLOSED, RR 16. CALL LIGHT IN REACH.
--- NOTE | 2020-10-25 00:52 | NUR ---
PATIENT IS RESTING IN BED WITH EYES CLOSED, RR 17. CALL LIGHT IN REAC.
--- NOTE | 2020-10-25 03:20 | NUR ---
PATIENT APPEARS TO BE SLEEPING. PATIENT IS RESTING IN BED WITH EYES CLOSED, RR 16. CALL LIGHT IN REACH.
--- NOTE | 2020-10-25 05:08 | NUR ---
PATIENT CALLED AND REQUESTED PAIN MEDICATION FOR 8/10 PAIN IN HER BACK. PATIENT GIVEN PRN PAIN MEDICATION PER ORDER. PATIENT REPOSITIONED IN BED. PATIENTS SCHEDULED MEDICATION GIVEN PER ORDER. VITALS TAKEN AND RECORDED. PATIENT DENIES THE NEED TO VOID. NO FURTHER NEEDS NOTED. CALL LIGHT IN REACH.
--- NOTE | 2020-10-25 05:54 | NUR ---
PATIENT ASSISTED TO BSC. PATIENT IS A 1PA W/FWW. PATIENT WAS ABLE TO VOID AND HAVE SMALL LOOSE BM. PATIENTS DW TAKEN AND RECORDED. INTAKE AND OUPUT RECORDED. PATIENTS SCHEDULED MEDICATIONS GIVEN PER ORDER. PATIENS LINEN CHANGED. POWDER APPLIED TO UNDER BREAST. NO FURTHER NEEDS NOTED. CALL LIGHT IN REACH. PATIENT IS BACK IN BED RESTING.
--- NOTE | 2020-10-25 07:15 | NUR ---
Report from Carl Silva RN. Patient resting in bed. Call light in reach. Bed rails up X2.
--- NOTE | 2020-10-25 07:50 | NUR ---
DC summary faxed to Debbie at [facility].
--- NOTE | 2020-10-25 08:14 | NUR ---
AM ASSESSMENT COMPLETED. AM MEDICATIONS ADMINISTERED, TAKES WITHOUT DIFFICULTY. STATES SHE IS PAIN 8/10 AT THIS TIME. AMBULATES TO BATHROOM WITH STANDBY ASSIST, THEN AMBULATES TO BED. SHORTNESS OF BREATH WITH EXERTION NOTED. RT CALLED TO GIVE SCHEDULED NEBS. PRN ANALGESIC GIVEN. DENIES OTHER NEEDS AT THIS TIME.
--- NOTE | 2020-10-25 09:22 | NUR ---
Notified by Pharm of change in orders for warfrin to increase to 1 tab from .5 tab. Order and lab copied and faxed to Debbie at [facility]. Received call from transport and they will be here at 10:30 to transport pt. Called and updated Debbie transport is confirmed for 10:30.
--- NOTE | 2020-10-25 10:20 | NUR ---
IV antibiotics completed. Port flushed with 20 mL NS and 5 mL of Heparin 100u/ml. Ghotra needle pulled and site covered with gauze and tape.
--- NOTE | 2020-10-25 11:04 | NUR ---
Report called to Lyndsay at [facility]
--- NOTE | 2020-10-25 13:08 | NUR ---
CONNECTED WITH PT SHE WAS BEING DC'D. GAVE ENCOURAGEMENT, PT KNODDED IN UNDERSTANDING, BUT SAID VERY LITTLE. PT SMILED, GAVE BLESSING OLGA TORRES TOOK PT TO HER RIDE
== END 2020-10-25 10:30 | DRG 872 ==
LOC: ED 11:16 → CCU 19:48 → MS 10-18 11:50
PROVIDERS: ADMIT Internal Medicine; ATTEND Internal Medicine
DX: A41.51 Sepsis due to Escherichia coli [E. coli] (principal); L03.114 Cellulitis of left upper limb; I47.1 Supraventricular tachycardia; A41.59 Other Gram-negative sepsis; N30.80 Other cystitis without hematuria; Z20.822 Contact with and (suspected) exposure to COVID-19; K59.00 Constipation, unspecified; M06.9 Rheumatoid arthritis, unspecified; G89.4 Chronic pain syndrome; K21.9 Gastro-esophageal reflux disease without esophagitis; G47.33 Obstructive sleep apnea (adult) (pediatric); J44.9 Chronic obstructive pulmonary disease, unspecified; E03.9 Hypothyroidism, unspecified; E55.9 Vitamin D deficiency, unspecified; D63.8 Anemia in other chronic diseases classified elsewhere; M48.00 Spinal stenosis, site unspecified; M46.92 Unspecified inflammatory spondylopathy, cervical region; M81.0 Age-related osteoporosis without current pathological fracture; F32.9 Major depressive disorder, single episode, unspecified; F41.9 Anxiety disorder, unspecified; M19.90 Unspecified osteoarthritis, unspecified site; E78.5 Hyperlipidemia, unspecified; E78.00 Pure hypercholesterolemia, unspecified; I48.0 Paroxysmal atrial fibrillation; B37.2 Candidiasis of skin and nail; Z86.711 Personal history of pulmonary embolism; Z85.118 Personal history of other malignant neoplasm of bronchus and lung; Z87.891 Personal history of nicotine dependence; Z88.1 Allergy status to other antibiotic agents; Z86.73 Personal history of transient ischemic attack (TIA), and cerebral infarction without residual deficits; Z79.01 Long term (current) use of anticoagulants; Z79.891 Long term (current) use of opiate analgesic; Z79.51 Long term (current) use of inhaled steroids; Z79.52 Long term (current) use of systemic steroids; Z79.899 Other long term (current) drug therapy
CPT/HCPCS: 36415; 51702; 74022; 74177; 80048; 80053; 81001; 83605; 83690; 83735; 84484; 85025; 85610; 85651; 87040; 87077; 87088; 87186; 93005; 93010; 93306; 94640; 94760; 97110; 97116; 97162; 97163; 97530; 99285-25; C9113; C9803; J0295; J1170; J1335; J1720; J1940; J2405; J2765; J3475; J3480; J7030; J7120; J7512; Q9967; U0003

== ENCOUNTER 2021-01-30 12:25 | Inpatient (IN) | payer MEDICARE, OTHER ==
[~2021-01-30] VITALS: Ht 157.5 cm; Wt 58.9 kg
[~2021-01-30 12:25] MED LIST changes: +VITAMIN K2100 MCG PO
--- OUTSIDE RECORDS SUMMARY | 2021-01-30 12:32 | XMS ---
PreManage Notification: TENA VILLALOBOS Security [employer] Events No recent Security Events currently on file CRITERIA MET - History of Sepsis Dx - PDMP CARE PROVIDERS DIANNA CRUM Physical Medicine \T\ Rehabilitation Current PHONE: [phone] ALEXANDRIA ZARCO Nurse Practitioner: Family [facility] [place] PHONE: [phone] Duncan Contreras Junior Programmer/Eye Physician 07/02/2020-Current PHONE: [phone] VLADIMIR [facility] Medicine 02/09/2018-Tiff Vaughan PHONE: [phone] ROHITH JACKSON Internal Medicine 08/03/2018-Current PHONE: [phone] Mila has no Care Guidelines for this patient. Care History Medical/Surgical 08/20/2018 [facility] - Patient is currently established with [facility]. If patient is seen in the ED during business hours. Please contact CHWs at [facility]. Care Recommendation: This patient has had [...] care. E.D. VISIT COUNT (12 MO.) 1 [facility] 3 [facility] TOTAL 4 NOTE: Visits indicate total known visits. ED/UCC VISIT TRACKING (12 MO.) 01/30/2021 12:26 [facility] [place] TYPE: Emergency COMPLAINT: - ABD PAIN, LOW BP 10/28/2020 13:13 [facility] Mike PERDOMO TYPE: Emergency DIAGNOSES: - Transient cerebral ischemic attack, unspecified - Abdominal Pain - Facial Numbness - Back Pain 10/16/2020 11:17 [facility] [place] TYPE: Emergency COMPLAINT: - WEAKNESS, N/V 09/25/2020 13:37 [facility] [place] TYPE: Emergency COMPLAINT: - R ELBOW INJURY DIAGNOSES: - Personal history of nicotine dependence - Essential (primary) hypertension - Chronic obstructive pulmonary disease, unspecified - emt intermediate (current) use of systemic steroids - Personal history of other malignant neoplasm of bronchus and lung - Striking against or struck by other objects, initial encounter - Other bed bug exterminator (current) drug therapy - Contusion of right elbow, initial encounter - Allergy status to other antibiotic agents - FPC (current) use of anticoagulants INPATIENT VISIT TRACKING (12 MO.) 10/16/2020 19:48 [facility] [place] TYPE: Medical Surgical COMPLAINT: - INTRA ABDOMINAL FREE AIR/UTI DIAGNOSES: - FPC (current) use of opiate analgesic - Personal history of pulmonary embolism - Personal history of nicotine dependence - emt intermediate (current) use of inhaled steroids - Sepsis due to Escherichia coli [E. coli] - Obstructive sleep apnea (adult) (pediatric) - emt intermediate (current) use of systemic steroids - Paroxysmal atrial fibrillation - Rheumatoid arthritis, unspecified - Pure hypercholesterolemia, unspecified - Supraventricular tachycardia - Hyperlipidemia, unspecified - Nausea with vomiting, unspecified - Other bed bug exterminator (current) drug therapy - Chronic pain syndrome - Unspecified osteoarthritis, unspecified site - Other Gram-negative sepsis - Constipation, unspecified - Cellulitis of left upper limb - Personal history of transient ischemic attack (TIA), and cerebral infarction without residual deficits - Age-related osteoporosis without current pathological fracture - Spinal stenosis, site unspecified - Anemia in other chronic diseases classified elsewhere - Anxiety disorder, unspecified - Major depressive disorder, single episode, unspecified - Gastro-esophageal reflux disease without esophagitis - Vitamin D deficiency, unspecified - Hypothyroidism, unspecified - Personal history of other malignant neoplasm of bronchus and lung - emt intermediate (current) use of anticoagulants - Unspecified inflammatory spondylopathy, cervical region - Candidiasis of skin and nail - Chronic obstructive pulmonary disease, unspecified - Allergy status to other antibiotic agents - Other cystitis without hematuria [email or web address]
--- NOTE | 2021-01-30 21:47 | NUR ---
PATIENT ARRIVED TO THE FLOOR VIA STRETCHER. PATIENTS ATTEND CHANGED. PATIENT ABLE TO ROLL AND HELP WITH ATTEND CHANGE. PATIENT ABLE TO SCOOT FROM STRETCHER TO BED WITH NO ASSISTANCE. IV INFUSING PER ORDER. SCHEDULED MEDICATIONS GIVEN PER ORDER. PATIENT REPORTS 7/10 PAIN IN HER NECK, BACK AND STOMACH. PRN PAIN MEDICATION GIVEN PER ORDER. ADMISSION COMPLETED. ICE WATER PROVIDED. NO FURTHER NEEDS NOTED. CALL LIGHT IN REACH.
--- NOTE | 2021-01-30 21:50 | NUR ---
IN ROOM TO INTRODUCE MYSELF TO PT. CHARGE NURSE VALERIO IN ROOM COMPLETING MEDICAL HISTORY ASSESSMENT WITH PT. WILL RETURN FOR PHYSICAL ASSESSMENT SHORTLY.
--- NOTE | 2021-01-30 22:20 | NUR ---
IN ROOM FOR ASSESSMENT. PT WAS RESTING IN BED WITH EYES CLOSED. SPO2 86%; 2L NC APPLIED TO PT, SPO2 THEN 96%. TELE MONITOR WITH SPO2 ATTACHED PER ORDER. SKIN INTEGRITY FRAGILE BUT INTACT; DARKENED AREAS ON ALL EXTREMITIES. PT'S FEET HAVE ANGULAR DEFORMATION TO THEM THAT PT REPORTS "NOBODY CAN FIGURE OUT WHY". PT REPORTS BEING WHEELCHAIR BOUND CURRENTLY D/T HER FEET. PT HAD WORN A BRACE ON LT FOOT BUT NO LONGER DOES SO. UPPER LUNG LOBES CLEAR, LOWER LOBES SLIGHT WHEEZE. BOWEL TONES ACTIVE. PT REPORTS BEING INCONTINENT; ATTENDS WITH EXTRA PAD ON. PT REQUESTS "SOMETHING TO SNACK ON". JELLO, CHICKEN BROTH AND JUICE PROVIDED (CLEAR DIET ORDER). CALL LIGHT WITHIN REACH NO FURTHER NEEDS AT THIS TIME.
--- NOTE | 2021-01-30 23:05 | NUR ---
IN ROOM TO ADJUST TELE. PT APPEARED TO BE SLEEPING THIS NURSE ENTERED ROOM. PT AWAKES WITH ACTIVITY IN ROOM. PT DENIES NEEDS AT THIS TIME. CALL LIGHT WITHIN REACH
--- NOTE | 2021-01-31 01:38 | NUR ---
SHIFT REPORT RECEIVED FROM SERGIO BROTHERS. PT RESTING IN BED.
--- NOTE | 2021-01-31 01:40 | NUR ---
IV PUMP ALARMING. IV PIGGYBACK FINISHED. PT IS SLEEPING WITH EYES CLOSED, EVEN RR. NO SIGNS OF DISTRESS. CALL LIGHT WITHIN REACH.
--- NOTE | 2021-01-31 02:00 | NUR ---
VS AND I&O COMPLETE. PT FALLS BACK TO SLEEP QUICKLY. IV FLUIDS INFUSING PER ORDER.
--- NOTE | 2021-01-31 04:00 | NUR ---
PT RESTING IN BED, EYES CLOSED. RR EVEN, UNLABORED ON 2L NC. HR SR @ 84 ON TELE.
--- NOTE | 2021-01-31 06:05 | NUR ---
ASSESSMENT, VS AND I&O COMPLETED. SCHEDULED MEDS PROVIDED. BRIEFS CHANGED. IV WNL, IV FLUIDS INFUSING PER ORDER. NO OTHER NEEDS. CALL LIGHT IN REACH.
--- NOTE | 2021-01-31 07:39 | NUR ---
REPORT RECEIVED. PT IN BED WITH EYES CLOSED. 2L NC IN PLACE. TELE 1 IN SR. HR OF 77. CALL LIGHT IN REACH.
[2021-01-31] MEDS ORDERED: XTAMPZA ER18 MG PO (09:00)
[2021-01-31] MEDS ORDERED: OXYCODONE HCL10 MG PO (09:04)
--- NOTE | 2021-01-31 10:11 | NUR ---
Patient vitals I&Os are complete. Call light is in reach with patient in bed. There are no requests at this time.
--- NOTE | 2021-01-31 10:30 | NUR ---
Spoke with Thea. She returned from [facility] two weeks ago after spendin g 2 months in their SNF. She would like to return, informed medicare requires a 60 day time period between SNF admissions. She cont. to live at home in a 2 story house with her SO. He is her caregiver. She states dhe does the cooking, cleaning, shopping, and assists her with personal care. She denies need for DME. Has meds for her nebulizer. she now has a ramp as in the past she could not get to the downstairs where Mir[employer] cooks. She is not in a wc all the time. She states she can walk, but has foot pain. States she frequently has a UTI and has an appt. scheduled with Dr. Mauricio. Also had an appt to see Dr. Burch for her foot pain, but did not go yesterday. Plans on dc to home. Again states she would like to return to [facility] as she lived it there.
--- NOTE | 2021-01-31 10:35 | NUR ---
ASSESSMENT COMPLETED. 2L NC IN PLACE. LUNGS SOUND COARSE. PT REQUESTING NEBULIZER. DR SWEENEY AWARE. PAIN IN NECK AND BACK REPORTED AT 12/08. 1 TAB NORCO ADMINISTERED. BOWEL TONES ACTIVE. HEART SOUNDS REGULAR. TELE IN PLACE. IN SR. CALL LIGHT IN REACH. PT DENIES FURTHER NEEDS.
--- NOTE | 2021-01-31 10:54 | NUR ---
ASSITED PT UP TO CHAIR WITH 1 PERSON ASSIST. PT ABLE TO HELP IN TRANSFER. WARM BLANKET PROVIDED AND BED MADE. CALL LIGHT AND WATER WITHIN REACH. DENIES FURTHER NEEDS.
[2021-01-31] MEDS ORDERED: PYRIDIUM200 MG PO (11:59)
--- NOTE | 2021-01-31 12:24 | NUR ---
PT REPOTRING INCREASING PAIN. DR SWEENEY NOTIFIED. ORDERS CHANGE BY . PAIN MEDICATION ADMINSTERED.
--- NOTE | 2021-01-31 12:30 | NUR ---
RT IN ROOM TO ADMISNTER BREATHING TREATMENT. PT UP IN CHAIR WITH LUNCH.
--- NOTE | 2021-01-31 13:40 | NUR ---
ROUNDED ON PT TO ASSESS PAIN. PT REPORTS PAIN MEDICATIONS ARE WORKIN. PAIN IS 5/10. AT BEDISDE. CALL LIGHT IN REACH.
--- NOTE | 2021-01-31 14:08 | NUR ---
GRINDER TENDER IN TO ASSSIT WITH SHOWER.
--- NOTE | 2021-01-31 14:38 | NUR ---
Patient had a shower, 2PA transfer, via shower chair. Patient was active in her shower care. Patient is in bed with visitor in room. Call light is in reach. Patient is not attached to IV currently and RN will be notified.
[2021-01-31] MEDS ORDERED: GILOTRIF30 MG PO (15:18)
--- NOTE | 2021-01-31 15:31 | NUR ---
MED REC COMPLETE
--- NOTE | 2021-01-31 16:14 | EKG ---
[facility] [address] [facility] [place] [address] Signed Atrial fibrillation with rapid ventricular response ST \T\ T wave abnormality, consider inferolateral ischemia Abnormal ECG When compared with ECG of 16-OCT-2020 11:31, Atrial fibrillation has replaced Sinus rhythm T wave inversion less evident in Inferior leads Confirmed by GREGORIO SWEENEY MD ([id number] on 01/31/2021 4:14:14 PM Electronically Signed By: GREGORIO SWEENEY MD 01/31/21 1614 PATIENT NAME: VILLALOBOSTENA Electrocardiogram DATE OF : 43 PHYSICIAN: GREGORIO SWEENEY MD REPORT #: [id number] REPORT IS CONFIDENTIAL AND NOT TO BE RELEASED WITHOUT AUTHORIZATION
--- NOTE | 2021-01-31 17:00 | NUR ---
PT WITH POOR PAIN MANAGEMENT WITH REGIMEN. DISCUSSED WITH DR SWEENEY. NEW ORDERS RECIEVED FOR HOME SCHEDULED PAIN MEDICAITONS.
--- NOTE | 2021-01-31 17:39 | NUR ---
PT SITTING UP IN BED EATING DINNER. PAIN REPORTED AT 12/08.PRN OXYCODONE ADMISNTERED.
--- NOTE | 2021-01-31 18:11 | NUR ---
Patient vitals, I&Os are complete. The patient has not had a BM in the last four hours, but has voided. Patient ate 85% of dinner. Call light is in reach and there are no requests at this time.
--- NOTE | 2021-01-31 19:20 | NUR ---
SHIFT REPORT RECEIVED FROM SHAYNE BROTHERS. PT RESTING IN BED, NC @ 2L. NO NEEDS AT THIS TIME. CALL LIGHT IN REACH.
--- NOTE | 2021-01-31 21:10 | NUR ---
IN TO GET VITALS, PT PROVIDED FRESH ICE WATER, DENIES ANY INCONT AT THIS TIME BUT WILL CALL WHEN SHE IS WET, NO FURTHER NEEDS AT THIS TIME
--- NOTE | 2021-01-31 22:13 | NUR ---
ASSESSMENT COMPLETED. GCS 15, A&O X4. LUNGS CLEAR IN UPPER LOBES, DIMINISHED IN LOWER LOBES. HR SR @ 89. NC @ 2L, CPOX 97%. HEART TONES REGUALR. ABD SOFT, NONTENDER, BOWEL TONES ACTIVE. CMS INTACT. IV WNL, CDI, FLUSHED WELL. SCHEDULED MEDS PROVIDED, PT REPORTS 7/10 BACK AND NECK PAIN. PT REPOSITIONED ONTO RIGHT SIDE. NO OTHER NEEDS AT THIS TIME. CALL LIGHT IN REACH.
--- NOTE | 2021-01-31 23:05 | NUR ---
BRIEFS CHANGED. PT OFFERED USE OF BEDPAN BUT SHE STATES THAT IT IS TOO LATE FOR THE BEDPAN BY THE TIME SHE RECOGNIZES THE NEED TO URINATE. SKIN CARE PROVIDED. TELE HR SR @ 82.
--- NOTE | 2021-02-01 00:30 | NUR ---
PT RESTING IN BED, EYES CLOSED. RR EVEN, UNLABORED. NC @ 2L, CPOX 96%. HR SR @ 74.
--- NOTE | 2021-02-01 02:31 | NUR ---
PT RESTING IN BED, EYES CLOSED. RR EVEN, UNLABORED. CPOX 95% ON 2L. HR SR @ 80. CALL LIGHT IN REACH.
--- NOTE | 2021-02-01 05:15 | NUR ---
ASSESSMENT, VS AND I&O COMPLETED. LUNGS CLEAR IN UPPER LOBES, DIMINISHED IN LOWER LOBES. PT HAS A PRODUCTIVE OCCASSIONAL COUGH. PT REPOSITIONED. IV WNL, IV FLUIDS INFUSING PER ORDER. NC @ 2L. BRIEFS CHANGED. NO OTHER NEEDS. CALL LIGHT IN REACH.
--- NOTE | 2021-02-01 06:19 | NUR ---
SCHEDULED MEDS PROVIDED. WARM BLANKET PROVIDED. NO OTHER NEEDS. CALL LIGHT IN REACH.
--- NOTE | 2021-02-01 09:49 | NUR ---
Vitals were done by RN. I&Os are complete. RN is placing a new IV soon. The patient just talked with the doctor. The call light is in reach and there are no requests. The patient would like to get some rest.
--- NOTE | 2021-02-01 12:30 | NUR ---
PT PRESSED CALL LIGHT AND STATED THEY NEEDED TO BE CHANGED. THIS EMERGENCY MEDICAL TECHNICIAN BASIC CHANGED PT'S BRIEF AND REPOSITIONED PT FROM LEFT SIDE TO RIGHT SIDE. PT'S BLANKETS WERE CHANGED DUE TO PREVIOUS IV LEAKING. PT IS NOW RESTING IN BED. CALL LIGHT IS WITHIN REACH. NO FURTHER NEEDS AT THIS TIME.
--- NOTE | 2021-02-01 13:26 | NUR ---
REPORT RECEIVED AND CARE ASSUMED. PT C/O PAIN MEDICATED PER ORDERS, FRESH H20 TO BEDSIDE. PT DENIES OTHER NEEDS OF. SATS 96% ON 2 LITERS SHE REPORTS SHE DOESN'T USE 02 AT HOME, BUT HAD REQUESTED BECAUSE OF SOME FLEM AND FEELING SOB. 02 TURNED OFF SATS STEADY AT 94%. 02 REMOVED PT AGREES SHE WILL REQUEST IT BE REPLACED IF SHE FEELS SHE NEEDS IT, AGREES SHE DOES NOT WANT IT NOW.
--- NOTE | 2021-02-01 15:15 | NUR ---
No change in plan for discharge. awaiting cultures.
--- NOTE | 2021-02-01 15:16 | NUR ---
Patient is eating some ribs with her . She ahs not had a BM in 4 hours. Vitals, I&Os are complete. The RN will be informed. The call light is in reach and the patient has no requests.
--- NOTE | 2021-02-01 17:00 | NUR ---
PT AGREES PAIN MED WAS EFFECTIVE EARLIER. BOYFRIEND IN TO VISIT BRINGS FOOD FROM HOME PT EATS HEARTILY. PT RESTING WATCHING TV AT THIS TIME.
--- NOTE | 2021-02-01 18:11 | NUR ---
Patient is resting. Vitals, I&Os are done. Call light is in reach and there are no requests at this time from the patient.
--- NOTE | 2021-02-01 19:20 | NUR ---
SHIFT REPORT RECEIVED FROM KALLI BROTHERS.
--- NOTE | 2021-02-01 21:45 | NUR ---
ASSESSMENT COMPLETED. CS 15, A&O X4. LUNGS CLEAR IN UPPER LOBES, DIMINISHED IN LOWER LOBES. HEART TONES REGULAR. ABD SOFT, NONTENDER, BOWEL TONES ACTIVE. IV WNL, CDI, FLUSHED. WELL. SCHEDULED MEDS PROVIDED. PT REPORTS 8/10 NECK AND BACK PAIN, PRN PAIN MED PROVIDED. CMS INTACT. NO OTHER NEEDS AT THIS TIME. CALL LIGHT IN REACH.
--- NOTE | 2021-02-01 22:15 | NUR ---
IN TO CHANGE PT DUE TO INCONT URINE, ATTENDS DRY AT THIS TIME, NEW SEYM[place] PAD IN PLACE, NO FURTHER NEEDS AT THIS TIME
--- NOTE | 2021-02-02 | NUR ---
PT RESTING IN BED, WATCHING TV. NO NEEDS AT THIS TIME. CALL LIGHT IN REACH.
--- NOTE | 2021-02-02 02:00 | NUR ---
PT RESTING IN BED, WATCHING TV. NO NEEDS AT THIS TIME. CALL LIGHT IN REACH.
--- NOTE | 2021-02-02 04:00 | NUR ---
PT RESTING IN BED, WATCHING TV. NO NEEDS AT THIS TIME. CALL LIGHT IN REACH.
--- NOTE | 2021-02-02 05:25 | NUR ---
IN TO GET VITALS, SEYMOUR PAD CHANGED DUE TO INCONT, ICE WATER FILLED AND WARM BLANKET PROVIDED AT THIS TIME, NO FURTHER NEEDS
--- NOTE | 2021-02-02 06:14 | NUR ---
ASSESSMENT COMPLETED. LUNGS CLEAR IN UPPER LOBES AND DIMINSHED IN LOWER LOBES. ABD SOFT, TENDER, PT STATES NORMAL, BOWEL TONES ACTIVE. SCATTERED BRUISING NOTED. CMS INTACT. IV WNL. NO OTHER NEEDS AT THIS TIME. CALL LIGHT IN REACH.
--- NOTE | 2021-02-02 07:30 | NUR ---
RECEIVED REPORT AT 0700, NO NEW CONCERNS NOTED AT THIS TIME.
--- NOTE | 2021-02-02 08:27 | NUR ---
PT ASLEEP IN BED. WHITE BOARD UPDATED. CALL LIGHT WITHIN REACH. WILL CHECK BACK ON PT LATER
--- NOTE | 2021-02-02 08:45 | NUR ---
ALL LOBES HAVE EXP. AND INSP. WHEEZING PRESENT, ABD SOUNDS PRESENT, MATTHEW.LOWER LEGS ARE LEON. PT CONTINUES TO HAVE ABD PAIN WITH URGENCY AND FREQUENCY. NO NEW ISSUES WERE NOTED.
--- NOTE | 2021-02-02 10:00 | NUR ---
PT IN ROOM IN CHAIR. NO NEW CONCERNS NOTED AT THIS TIME.
--- NOTE | 2021-02-02 11:48 | NUR ---
PT AMBULATED FROM CHAIR TO BED WITH ONE PERSON ASSIST AND NOW RESTING IN BED. CALL LIGHT WITHIN REACH. NO FURTHER NEEDS AT THIS TIME
--- NOTE | 2021-02-02 12:00 | NUR ---
PRN OXY TO BE GIVEN, PAIN 7/10. PT BACK IN BED. NO NEW CONCERNS NOTED.
--- NOTE | 2021-02-02 15:00 | NUR ---
LOBE ARE CLEAR BUT DIMINISHED IN THE UPPER AREAS, LOWER LOBES STILL HAVE SOME WHEEZING PRESENT. PT MARIO SOB. NO NEW CONCERNS NOTED WITH THIS ASSESSMETN.
--- NOTE | 2021-02-02 17:56 | NUR ---
PT RESTING IN BED. WATCHING TV. CALL LIGHT WITHIN REACH. NO FURTHER NEEDS AT THIS TIME.
--- NOTE | 2021-02-02 18:12 | NUR ---
PT IN ROOM. NO NEW CONCERNS NOTED AT THIS TIME.
--- NOTE | 2021-02-02 18:15 | NUR ---
PT OVERALL HAD AN UNEVENTFULL DAY. PT DID NEED A PRN NEB TREATMENT FOR HER WHEEZING THIS MORNING IN ADDITION TO HER SCHEDULED ONE. URINE SAMPLE WAS ALSO OBTAINED THIS AFTERNOON. PT STILL DOES HAVE LOWER ABD PAIN WITH URGENCY AND FREQUENCY. OVERALL THOUGH NO NEW CONCERNS WERE NOTED TODAY.
--- NOTE | 2021-02-02 20:00 | NUR ---
PATIENT RESTING QUIETLY IN BED WITH EYES CLOSED, RESPIRATIONS REGULAR AND EVEN, PATIENT IN LOW FOWLERS POSITION, AND CALL LIGHT IS IN REACH.
--- NOTE | 2021-02-02 21:15 | NUR ---
IN TO GET VITALS, CHANGED PT, NEW ATTENDS IN PLACE, WARM BLANKETS AND ICE WATER PROVIDED, PT REPORTS SOME PAIN AND LET PT KNOW THE RN IS MAKING ROUNDS, PT IS OKAY WITH THIS, NO FURTHER NEEDS AT THIS TIME
--- NOTE | 2021-02-02 21:55 | NUR ---
PATIENT HAVING 7/10 NECK/BACK/ABD PAIN. PM OXYCONTIN 10MG GIVEN. PATIENT ATTENDS DRY AND PATIENT IS READY FOR SLEEPING. PATIENT SAYS SHE IS WARM ENOUGH AND HAS NO OTHER CARE NEEDS. LIGHTS TURNED DOWN AND CALL LIGHT IS IN PLACE.
--- NOTE | 2021-02-03 00:10 | NUR ---
PATIENT RESTING QUIETLY IN LOW FOWLERS TURNED TO HER LEFT, EYES ARE CLOSED, RESPIRATIONS ARE REGULAR AND EVEN, AND CALL LIGHT IS IN REACH.
--- NOTE | 2021-02-03 02:17 | NUR ---
PATIENT RESTING IN LOW FOWLERS POSITION, RESPIRATIONS ARE REGULAR AND EVEN, EYES ARE CLOSED, AND CALL LIGHT IS IN REACH.
--- NOTE | 2021-02-03 03:25 | NUR ---
PATIENT INCONTINENT OF URINE AND PATIENT WASHED UP AND NEW ATTENDS IN PLACE. THIS RN ASSISTING OLGA BOB. PATIENT HAS NO OTHER NEEDS AT THIS TIME. PATIENT COVERED IN WARM BLANKETS, LIGHTS TURNED DOWN, AND CALL LIGHT IN REACH.
--- NOTE | 2021-02-03 04:07 | NUR ---
PATIENT CALLED FOR NECK/BACK/ABD PAIN 12/08. 10MG PO OXYCODONE GIVEN. PATIENT HAD NO OTHER NEEDS AT THIS TIME. CALL LIGHT IS IN REACH.
--- NOTE | 2021-02-03 05:26 | NUR ---
PATIENT AM ASSESSMENT COMPLETE. PATIENT'S PAIN HAS BEEN WELL CONTROLLED WITH EVENING SCHEDULED PAIN MED AND ONE PRN DOES THIS MORNING. PAIN CONTINUES TO BE CHRONIC IN THE NECK AND BACK, AND PAIN IN THE ABD WELL. PATIENT HAS RESTED WELL BETWEEN PAIN MEDICATION DOSES. PATIENT WAS INCONTINENT 3 TIMES THIS SHIFT AND HAS QUANTITY SUFFICIENT URINE OUTPUT. PATIENT HAS DRY ATTENDS ON AT THIS TIME. PATIENT HAS NO CURRENT CARE NEEDS AND LIGHTS HAVE BEEN TURNED DOWN SO SHE CAN GO BACK TO SLEEP. CALL LIGHT IS IN REACH.
--- NOTE | 2021-02-03 08:34 | NUR ---
PT SNORING SOFTLY AT SHIFT EXCHANGE LEFT UNDISTURBED. AWAKE NOW HAS COMPLETED MORNING MEAL. UNDERGARMENTS CHANGED AND PT REPOSITIONED. DENIES OTHER NEEDS AT THIS TIME.
--- NOTE | 2021-02-03 08:42 | NUR ---
PT WAS IN BED. PT STATED THEY NEEDED TO BE CHANGED. THIS TENDERIZER TENDER CHANGED PTS BRIEF AND ROTATED THEM TO THEIR RIGHT SIDE. WHITEBOARD WAS UPDATED. PT WAS GIVEN A WARM WASHCLOTH FOR THEIR FACE. CALL LIGHT IS WITHIN REACH. NO FURTHER NEEDS AT THIS TIME.
--- NOTE | 2021-02-03 10:01 | NUR ---
PT UP TO THE CHAIR AFTER MORNING MEAL. ABLE TO STAND AND TAKE A FEW STEPS USING THE WALKER. REMAINS IN THE CHAIR WATCHING TV DENIES NEEDS AT THIS TIME
--- NOTE | 2021-02-03 12:13 | NUR ---
PT HAS BEEN UP TO THE CHAIR BACK TO BED THEN BACK TO THE CHAIR THIS SHIFT. IV SITE LEAKING DC'D SL SITE UNREMARKABLE. NEW SITE TO BE ESTABLISHED. PT HAS A VISITOR AT THIS TIME.
--- NOTE | 2021-02-03 13:57 | NUR ---
PT AWAKE IN ROOM. PT IS 1PA FROM CHAIR TO THE BED. PT RESTING IN BED WITH PLANS TO NAP. PT REFUSED SHOWER WHEN OFFERED. CALL LIGHT WITHIN REACH NO FURTHER NEEDS AT THIS TIME.
--- NOTE | 2021-02-03 18:25 | NUR ---
PT IS STILL UP IN THE CHAIR AFTER HER EVENING MEAL C/O NECK PAIN MEDICATED PER JUL. PT DENIES OTHER REQUESTS
--- NOTE | 2021-02-03 20:02 | NUR ---
PATIENT REPORT RECEIVED FROM ZEV TIJERINA. PATIENT DENIES THE NEED FOR ANY PAIN MEDS AT THIS TIME. PATIENT HAS NO CURRENT CARE NEEDS. CALL LIGHT IS IN REACH.
--- NOTE | 2021-02-03 21:42 | NUR ---
PATIENT GIVEN SCHEDULED DOSE OF OXYCONTIN FOR NECK/BACK/ABD PAIN 12/08. PATIENT FINISHED NEB TREATMENT AND ATTENDS CHANGED FOR URINARY INCONTINENCE. ICE WATER REFILLED AND WARM BLANKETS GIVEN. RESPIRATIONS ARE REGULAR AND EVEN, BUT O2 SATS OMLY 91-92% ON RA, SO PATIENT PUT ON THE 2L/NC SHE SOMETIMES WEARS AT NIGHT. LIGHTS WERE TURNED DOWN AND CALL LIGHT IS IN REACH.
--- NOTE | 2021-02-04 | NUR ---
PATIENT RESTING QUIETLY IN LOW FOWLERS POSITION WITH 2L/NC IN PLACE, EYES CLOSED, RESPIRATIONS ARE REGULAR, AND EVEN AND CALL LIGHT IS IN REACH.
--- NOTE | 2021-02-04 02:00 | NUR ---
PATIENT RESTING ON HER RIGHT SIDE, EYES CLOSED, RESPIRATIONS REGULAR AND EVEN, REMAINS ON 2L/NC, AND CALL LIGHT IS IN REACH.
--- NOTE | 2021-02-04 03:50 | NUR ---
PATIENT HAS TURNED TO HER LEFT, REMAINS ON 2L/NC, RESPIRATIONS ARE REGULAR AND EVEN, EYES ARE CLOSED, AND CALL LIGHT IS IN REACH.
--- NOTE | 2021-02-04 05:51 | NUR ---
PATIENT SAYS SHE FEELS LIKE SHE SLEPT FAIRLY WELL. 10MG PO OXYCODONE GIVEN FOR 12/08 NECK/BACK/ABD PAIN. PATIENT'S ATTENDS CHANGED WITH LARGE INCONTINENCE OF URINE. VS ARE STABLE. BACK ON RA AFTER SLEEPING THROUGH THE NIGHT WITH 2L/NC. IV FLUSHED AND PATIENT HAS NO OTHER CARE NEEDS AT THIS TIME. CALL LIGHT IN REACH.
--- NOTE | 2021-02-04 07:46 | NUR ---
PT SLEEPING SOUNDLY AT TIME OF SHIFT EXCHANGE, LEFT UNDISTURBED.
--- NOTE | 2021-02-04 08:37 | NUR ---
PT AWAKE IN BED. PT WANTS TO DO BREATHING TREATMENT IN BED THEN MOVE TO CHAIR FOR BREAKFAST. PT PLANS TO CALL WHEN READY FOR TRANSFER. CALL LIGHT WITHIN REACH. NO FURTHER NEEDS AT THIS TIME.
--- NOTE | 2021-02-04 09:20 | NUR ---
PT COMPLETES MORNING MEAL, HAS NOT GOTTEN UP YET. DENIES NEEDS AT THIS TIME
--- NOTE | 2021-02-04 10:34 | NUR ---
PT UP TO THE CHAIR MORNING MEAL COMPLETE. CALL LIGHT AND NEEDED ITEMS IN REACH DENIES NEEDS AT THIS TIME
--- NOTE | 2021-02-04 11:59 | NUR ---
PT SITTING UP IN THE CHAIR HAVEING NOON MEAL WITH HER BOYFRIEND AND DOG. AGREES SHE IS COMFORTABLE
--- NOTE | 2021-02-04 12:51 | NUR ---
pt boyfriend leaves pt remains up in the chair doing neb treatment
--- NOTE | 2021-02-04 14:15 | NUR ---
PT AWAKE IN BED. PT PLANS TO SHOWER AFTER A NAP. WILL CHECK BACK LATER. CALL LIGHT WITHIN REACH. NO FURTHER NEEDS AT THIS TIME.
--- NOTE | 2021-02-04 17:08 | NUR ---
PT UP IN BED EATING EVENING MEAL. HAS ATTEMPTED TO SHOWER SEVERAL TIMES TODAY BUT BREATHING TREATMENTS, DOCTOR VISITS, ETC HAVE PREVENTED THIS FROM GETTING DONE SO FAR
--- NOTE | 2021-02-04 19:20 | NUR ---
REPORT RECEIVED FROM ZEV TIJERINA. pt RESTING IN BED AWAKE. DENIES NEEDS. IN ROOM. CANCER MEDS IN KITS LIST LEFT IN ROOM.
--- NOTE | 2021-02-04 20:50 | NUR ---
CALL LIGHT ANSWERED. pt REQUESTING PAIN MEDICATION. SCHEDULED MEDICATION ADMINISTERED FOR 01/08 REPORTED PAIN IN ABDOMEN, NECK. ASSESSMENT COMPLETE. LUNGS COARSE BILATERALLY LOWER LOBES. SPO2 92% ON RA. ATTENDS DRY. pt DENIES TOILETING NEEDS. IV SITE FLUSHED WNL, IV ANTIBIOTIC INFUSING ORDERED. ICE WATER PROVIDED. CALL LIGHT IN REACH.
--- NOTE | 2021-02-04 23:59 | NUR ---
CHECKED ON pt. RESTING IN BED WITH EYES CLOSED. BREATHING EQUAL AND UNLABORED. LIGHTS OFF IN ROOM. IV ANTIBIOTIC INFUSING ORDERED.
--- NOTE | 2021-02-05 02:30 | NUR ---
CALL LIGHT ANSWERED. pt C/O 12/08 PAIN IN BACK, NECK, ABD. ASSESSMENT COMPLETE. pt INCONTINENT OF URINE. ATTENDS AND CHUX CHANGED. pt LABORED BREATHING WITH ASSISTANCE TO CHANGE ATTENDS. 2L OXYGEN APPLIED FOR TWO MINUTES TO RECOVER. RT CHANDLER IN ROOM FOR PRN BREATHING TREATMENT REQUESTED FROM pt. LUNG SOUNDS CLEAR, DIMINISHED IN LLL. CALL LIGHT IN REACH. NO REQUESTS AT THIS TIME.
--- NOTE | 2021-02-05 04:30 | NUR ---
pt RESTING IN BED. EYES CLOSED, BREATHING UNLABORED ON RA. LIGHTS OFF IN ROOM.
--- NOTE | 2021-02-05 06:18 | NUR ---
pt APPEARED TO REST WELL THIS SHIFT. ALERT AND ORIENTED. PRN AND SCHEDULED PAIN MEDICATIONS ADMINISTERED FOR PAIN CONTROL. INCONTINENT OF URINE. pt ABLE TO ASSIST WITH CHANGING. IV ANTIBIOTICS, SL WNL.
--- NOTE | 2021-02-05 06:53 | NUR ---
pt SLEEPING, AWAKENS TO VOICE. pt RATES PAIN 7/10 IN NECK, BACK, ABD. PRN PAIN MEDICATION ADMINISTERED REQUESTED. VSS. INCONTINENT OF URINE. ATTENDS CHANGED. ASSISTED TO REPOSITION IN BED. ICE WATER PROVIDED. NO ADDITIONAL REQUESTS.
--- NOTE | 2021-02-05 07:38 | NUR ---
this rn received report from matt woody. pt awake and states that she is doing well this am and needs nothing further at this time
--- NOTE | 2021-02-05 08:10 | NUR ---
PT AWAKE AND EATING BREAKFAST. PT PLANS TO CALL THIS MOLASSES PREPARER WHEN FINISHED WITH BREAKFAST AND HAVE A SHOWER. CALL LIGHT WITHIN REACH. NO FURTHER NEEDS AT THIS TIME.
--- NOTE | 2021-02-05 08:54 | NUR ---
THIS RN IN PTS ROOM TO GIVE PT HER MORNING MEDS. PT STATES THAT SHE IS FEELING BETTER THIS AM COMPARED TO WHEN SHE CAME IN. PT REPORTS HER CHRONIC PAIN IS 7/10. PT ALERT AND ORIENTED AND IN GOOD SPIRITS. PT STATES THAT SHE ISN'T CONCERNED WITH ANY OTHER THAN HER PLAN OF THE DAY- IF SHE IS GOING HOME TODAY OR NOT.
--- NOTE | 2021-02-05 10:16 | NUR ---
PT HAD A SHOWER WITH ASSISTANCE FROM THIS LANDSCAPE ARTIST. SKIN CARE DONE AFTER. WARM BLANKETS GIVEN. PT NOW IN CHAIR WATCHING TV. FRESH ICE WATER GIVEN. CALL LIGHT WITHIN REACH. LINEN CHANGED. NO FURTHER NEEDS AT THIS TIME.
--- NOTE | 2021-02-05 12:40 | NUR ---
THIS RN IN PTS ROOM TO CHECK ON PT. PT STATES THAT SHE IS HAVING SOME INCREASED PAIN, THIS RN ABLE TO PROVIDE PT WITH 10MG OXY AND 500MG OF TYLENOL TO PROVIDE HER SOME COMFORT. PT STILL SITTING UP TO THE CHAIR AND STATES THAT SHE IS DOING GOOD OTHERWISE
--- NOTE | 2021-02-05 12:50 | NUR ---
Spoke with Thea. States she is feeling better each day. Unsure when she will be able to dc, per [address] Chino, pt will dc tomorrow. Informed will discuss when he feels she can discharge with her when he sees her later today. She denies needs, states Mirza will take care of everything and she has all the DME she needs for dc. She has fu appts with podiatry and urology. Denies needs for discharge.
--- NOTE | 2021-02-05 15:30 | NUR ---
THIS RN IN PTS ROOM TO CHECK ON PT AND GIVE PT MEDS. PT APPEARS TO BE NAPING COMFORTABLY AT THIS TIME. THIS RN WILL CHECK BACK ON PT LATER TO ENSURE THAT SHE TAKES HER AFTERNOON MEDS. RES[IRATIONS ARE DEEP AND EVEN AT THIS TIME
[2021-02-05] MEDS ORDERED: BENZONATATE100 MG PO (16:09)
[2021-02-05] MEDS ORDERED: OXYBUTYNIN CHLOR5 MG PO (16:10)
--- NOTE | 2021-02-05 16:40 | NUR ---
THIS RN IN PTS ROOM TO CHECK ON HER, PT STATES THAT SHE GOT A GOOD NAP IN AND IS READY TO ORDER DINNER. PT STATES THAT OTHERWISE SHE IS DOING WELL AND NEEDS NOTHING FURTHER AT THIS TIME.
--- NOTE | 2021-02-05 18:25 | NUR ---
PT AWAKE IN BED EATING DINNER. IN TO VISIT. CALL LIGHT WITHIN REACH. NO FURTHER NEEDS AT THIS TIME
--- NOTE | 2021-02-05 19:48 | NUR ---
REPORT RECEIVED FROM DAY SHIFT RN. PT LYING IN BED ALERT AND ORIENTED. DENIES NEEDS. WHITE BOARD UPDATED. CALL LIGHT IN REACH.
--- NOTE | 2021-02-05 21:30 | NUR ---
EVENING ASSESSMENT COMPLETE. SCHEDULED MEDS ADMINISTERED PER EMAR. IV ABX INFUSING WNL. SpO2 91% ON RA. RESPIRATIONS EVEN. OCCASIONAL CONGESTED COUGH NOTED. PT DENIES SOB. ASSISTED TO REPOSITION IN BED. PT DENIES QUESTIONS OR CONCERNS. CALL LIGHT IN REACH.
--- NOTE | 2021-02-06 01:41 | NUR ---
PT RESTING IN BED WITH EYES CLOSED. RESPIRATIONS EVEN. IV ABX COMPLETE. PT SL. CALL LIGHT IN REACH.
--- NOTE | 2021-02-06 03:15 | NUR ---
PT RESTING IN BED ON RIGHT SIDE. RESPIRATIONS EVEN. NO APPARENT DISTRESS.
--- NOTE | 2021-02-06 05:37 | NUR ---
CALL LIGHT ANSWERED. PT INCONTINENT OF LARGE AMOUNT URINE. SEYMOUR CARE DONE BY STAFF. NEW ATTENDS PLACED. PT ABLE TO ASSIST IN CARES. PRN FOR PAIN ADMINISTERED PER EMAR. SCHEDULED MEDS ADMINISTERED. NO FURTHER NEEDS AT THIS TIME. CALL LIGHT IN REACH.
--- NOTE | 2021-02-06 07:17 | NUR ---
THIS RN RECEIVED REPORT FROM IKE BROTHERS. PT APPEARS TO BE RESTING COMFORTABLY AT THIS TIME WITH RESPIRATIONS NOTED.
--- NOTE | 2021-02-06 07:40 | NUR ---
PT WAS IN BED RECIEVING A BREATHING TREATMENT. WHITEBOARD WAS UPDATED. CALL LIGHT IS WITHIN REACH. THIS EXPORT FREIGHT MANAGER WILL CHECK BACK LATER AFTER TREATMENT.
--- NOTE | 2021-02-06 08:00 | NUR ---
No change in plan for discharge. Pt denies needs for dc to home.
--- NOTE | 2021-02-06 08:15 | NUR ---
THIS RN IN PTS ROOM PER PT REQUEST TO ASSIST WITH A BRIEF CHANGE DUE TO INCONTINENCE. PT ALSO REQUESTING PAIN MEDS AT THIS TIME. THIS RN ABLE TO PROVIDE PT WITH HER SCHEDULED PAIN MEDS AND PRN TYLENOL FOR PAIN. PT STATES THAT SHE IS DOING WELL AND NEEDS NOTHING FURTHER THIS AM.
--- NOTE | 2021-02-06 08:29 | NUR ---
THIS ELASTIC YARN TWISTER HELPER HELPED PT GET INTO THEIR RECLINER FOR BREAKFAST. PT WAS GIVEN A BLANKET AND PILLOWS. CALL LIGHT IS WITHIN REACH. NO FUTHER NEEDS AT THIS TIME. PT REFUSED A SHOWER OR BED BATH.
--- NOTE | 2021-02-06 09:40 | NUR ---
It was my pleasure to round with Thea this morning and inquire regarding her patient care while here in the hospital. Thea reports that her care has been "absolutely wonderful, I have nothing bad to say." When I asked Thea about her care in the emergency department she stated "the care was great". Thea feels like the staff members are responsive, she reports that they do answer her call light in a timely manner, and she said that the staff members are "explaining my medications to me, and why I am taking them, but I don't always remember everything." She feels her room is clean, and she reports it is quiet in the halls, and she is able to sleep at night. She expresses no concerns to me at thist time, and she denies any questions at this time.
--- NOTE | 2021-02-06 13:13 | NUR ---
I had a nice visit with PT. She was looking forward to going home later today. She asked for prayer for her foot. I prayed for healing and endurance for her other aches and pains. She was very grateful and shared about her [id number] who does bible study with her regularly.
== END 2021-02-06 13:40 | disposition home or self-care (01) | DRG 690 ==
LOC: ED 12:25 → MS 20:03
PROVIDERS: ADMIT Internal Medicine; ATTEND Internal Medicine
DX: N39.0 Urinary tract infection, site not specified (principal); D84.821 Immunodeficiency due to drugs; Z20.822 Contact with and (suspected) exposure to COVID-19; I48.0 Paroxysmal atrial fibrillation; K21.9 Gastro-esophageal reflux disease without esophagitis; E03.9 Hypothyroidism, unspecified; G89.4 Chronic pain syndrome; M06.9 Rheumatoid arthritis, unspecified; M19.90 Unspecified osteoarthritis, unspecified site; E78.5 Hyperlipidemia, unspecified; E55.9 Vitamin D deficiency, unspecified; G47.33 Obstructive sleep apnea (adult) (pediatric); M81.0 Age-related osteoporosis without current pathological fracture; M54.2 Cervicalgia; J44.9 Chronic obstructive pulmonary disease, unspecified; Z86.73 Personal history of transient ischemic attack (TIA), and cerebral infarction without residual deficits; Z79.52 Long term (current) use of systemic steroids; Z88.1 Allergy status to other antibiotic agents; Z79.899 Other long term (current) drug therapy; Z79.01 Long term (current) use of anticoagulants; Z85.118 Personal history of other malignant neoplasm of bronchus and lung; Z86.711 Personal history of pulmonary embolism
CPT/HCPCS: 70450; 71045; 74177; 80048; 80053; 80500; 81001; 83605; 83690; 83735; 84484; 85007; 85025; 85610; 85651; 87040; 87088; 90694; 93005; 93010; 94640; 94668; 94760; 96375; 96376; 97110; 97161; 97166; 99285-25; C9803; J0692; J0696; J2270; J2405; J3475; J3480; J7030; J7512; Q9967; U0003

== ENCOUNTER 2021-03-11 16:45 | Emergency (ER) | payer MEDICARE, OTHER ==
[~2021-03-11] VITALS: Ht 157.5 cm; Wt 57.9 kg
[~2021-03-11 16:45] MED LIST changes: +OXYBUTYNIN CHLOR5 MG PO; +OXYCODONE HCL10 MG PO; +PYRIDIUM200 MG PO; +XTAMPZA ER18 MG PO
--- OUTSIDE RECORDS SUMMARY | 2021-03-11 16:48 | XMS ---
PreManage Notification: TENA VILLALOBOS Security Associate Professor Computer Science Events No recent Security Events currently on file CRITERIA MET - TIMP CARE PROVIDERS DIANNA CRUM Physical Medicine \T\ Rehabilitation Current PHONE: [phone] ALEXANDRIA ZARCO Nurse Practitioner: Family [facility] CHARISSA PHONE: [phone] uDncan Contreras Furniture Upholsterer/Process Control Operator 03/01/2021-Current PHONE: [phone] VLADIMIR [facility] Medicine 02/09/2018-Tiff Vaughan PHONE: [phone] ROHITH JACKSON Internal Medicine 01/31/2021-Current PHONE: [phone] Mila has no Care Guidelines for this patient. Care History Medical/Surgical 08/20/2018 [facility] - Patient is currently established with [facility]. If patient is seen in the ED during business hours. Please contact CHWs at [facility]. Care Recommendation: This patient has had 5 [...] COUNT (12 MO.) 1 [facility] NOTE: Visits indicate total known visits. ED/UCC VISIT TRACKING (12 MO.) 03/11/2021 16:46 MARTHA Molina TYPE: Emergency COMPLAINT: - LT FOOT PAIN 01/30/2021 12:26 MARTHA Molina TYPE: Emergency COMPLAINT: - ABD PAIN, LOW BP 10/28/2020 13:[address] [facility] Alisa PERDOMO TYPE: Emergency DIAGNOSES: - Transient cerebral ischemic attack, unspecified - Abdominal Pain - Facial Numbness - Back Pain 10/16/2020 11:17 MARTHA [place] TYPE: Emergency COMPLAINT: - WEAKNESS, N/V 09/25/2020 13:37 MARTHA Gonzalez [place] TYPE: Emergency COMPLAINT: - R ELBOW INJURY DIAGNOSES: - Personal history of nicotine dependence - Essential (primary) hypertension - Chronic obstructive pulmonary disease, unspecified - terminal clerk (current) use of systemic steroids - Personal history of other malignant neoplasm of bronchus and lung - Striking against or struck by other objects, initial encounter - Other terminal clerk (current) drug therapy - Contusion of right elbow, initial encounter - Allergy status to other antibiotic agents - terminal clerk (current) use of anticoagulants INPATIENT VISIT TRACKING (12 MO.) 01/30/2021 20:03 MARTHA Gonzalez [place] TYPE: Medical Surgical COMPLAINT: - ABD PAIN DIAGNOSES: - detention (current) use of anticoagulants - Obstructive sleep apnea (adult) (pediatric) - Hypothyroidism, unspecified - Unspecified osteoarthritis, unspecified site - detention (current) use of anticoagulants - Vitamin D deficiency, unspecified - Immunodeficiency due to drugs - Age-related osteoporosis without current pathological fracture - Hyperlipidemia, unspecified - Allergy status to other antibiotic agents - Allergy status to other antibiotic agents - Chronic obstructive pulmonary disease, unspecified - Obstructive sleep apnea (adult) (pediatric) - Rheumatoid arthritis, unspecified - Urinary tract infection, site not specified - Personal history of other malignant neoplasm of bronchus and lung - Cervicalgia - Hyperlipidemia, unspecified - Personal history of transient ischemic attack (TIA), and cerebral infarction without residual deficits - Gastro-esophageal reflux disease without esophagitis - Chronic pain syndrome - detention (current) use of systemic steroids - Hypothyroidism, unspecified - Personal history of pulmonary embolism - Paroxysmal atrial fibrillation - detention (current) use of systemic steroids - Paroxysmal atrial fibrillation - Chronic obstructive pulmonary disease, unspecified - Vitamin D deficiency, unspecified - Other terminal clerk (current) drug therapy - Personal history of other malignant neoplasm of bronchus and lung - Rheumatoid arthritis, unspecified - Personal history of transient ischemic attack (TIA), and cerebral infarction without residual deficits - Chronic pain syndrome - Gastro-esophageal reflux disease without esophagitis - Immunodeficiency due to drugs - Unspecified osteoarthritis, unspecified site - Other assisted (current) drug therapy 10/16/2020 19:[address] [facility] [place] TYPE: Medical Surgical COMPLAINT: - INTRA ABDOMINAL FREE AIR/UTI DIAGNOSES: - terminal clerk (current) use of opiate analgesic - Personal history of pulmonary embolism - Personal history of nicotine dependence - terminal clerk (current) use of inhaled steroids - Sepsis due to Escherichia coli [E. coli] - Obstructive sleep apnea (adult) (pediatric) - terminal clerk (current) use of systemic steroids - Paroxysmal atrial fibrillation - Rheumatoid arthritis, unspecified - Pure hypercholesterolemia, unspecified - Supraventricular tachycardia - Hyperlipidemia, unspecified - Nausea with vomiting, unspecified - Other assisted (current) drug therapy - Chronic pain syndrome [...] malignant neoplasm of bronchus and lung - terminal clerk (current) use of anticoagulants - Unspecified inflammatory spondylopathy, cervical region - Candidiasis of skin and nail - Chronic obstructive pulmonary disease, unspecified - Allergy status to other antibiotic agents - Other cystitis without hematuria [email or web address]
== END 2021-03-11 19:43 | disposition home or self-care (01) ==
LOC: ED 16:45
DX: S92.352A Displaced fracture of fifth metatarsal bone, left foot, initial encounter for closed fracture (principal); I10 Essential (primary) hypertension; M06.9 Rheumatoid arthritis, unspecified; J44.9 Chronic obstructive pulmonary disease, unspecified; Z87.891 Personal history of nicotine dependence; Z88.1 Allergy status to other antibiotic agents; Z79.899 Other long term (current) drug therapy; Z79.01 Long term (current) use of anticoagulants
CPT/HCPCS: 73630; 99283

== ENCOUNTER 2021-07-24 10:07 | Emergency (ER) | payer MEDICARE, OTHER ==
[~2021-07-24] VITALS: Ht 170.2 cm; Wt 50.4 kg
--- OUTSIDE RECORDS SUMMARY | 2021-07-24 10:10 | XMS ---
PreManage Notification: TENA VILLALOBOS Security Heel Seat Fitter Machine Events No recent Security Events currently on file CRITERIA MET - [facility] Guidelines - PDMP CARE PROVIDERS DIANNA CRUM Physical Medicine \T\ Rehabilitation Current PHONE: [phone] ALEXANDRIA ZARCO Nurse Practitioner: Family Current CHARISSA PHONE: [phone] Duncan Contreras Management Manager/Programming Internship 03/01/2021-Current PHONE: [phone] Family VLADIMIR Medicine 02/09/2018-Tiff Vaughan PHONE: [phone] ROHITH JACKSON Internal Medicine 01/31/2021-Current PHONE: [phone] Mila has no Care Guidelines for this patient. Care History Medical/Surgical 03/18/2021 [facility] Patient stated she saw Dr. Burch last week and has another follow up visit with him on 04/01/2021. 08/20/2018 [facility] - Patient is currently established with [facility]. If patient is seen in the ED during business hours. Please contact CHWs at [facility]. Care Recommendation: This patient has had 5 [...] care. E.D. VISIT COUNT (12 MO.) 1 [facility] 1 [facility] NOTE: Visits indicate total known visits. ED/UCC VISIT TRACKING (12 MO.) 07/24/2021 10:08 [facility]TH[facility] [place] TYPE: Emergency COMPLAINT: - N/V/D,WEEAKNESS [facility] DIAGNOSES: [id number]. L SHOULDER INJ [id number]. Fall on same level, unspecified, initial encounter [id number]. Other displaced fracture of upper end of left humerus, initial encounter for closed fracture 03/11/2021 16:46 MARTHA [place] TYPE: Emergency COMPLAINT: - LT FOOT PAIN/INJ DIAGNOSES: - Other custodial (current) drug therapy - Personal history of nicotine dependence - moth exterminator (current) use of anticoagulants - Displaced fracture of fifth metatarsal bone, left foot, initial encounter for closed fracture - Allergy status to other antibiotic agents - Rheumatoid arthritis, unspecified - Chronic obstructive pulmonary disease, unspecified - Essential (primary) hypertension 01/30/2021 12:26 MARTH[facility] [place] TYPE: Emergency COMPLAINT: - ABD PAIN, LOW BP 10/28/2020 13:13 [facility] Mike PERDOMO TYPE: Emergency DIAGNOSES: - Transient cerebral ischemic attack, unspecified - Abdominal Pain - Facial Numbness - Back Pain 10/16/2020 11:17 MARTHA [place] TYPE: Emergency COMPLAINT: - WEAKNESS, N/V 09/25/2020 13:37 MARTHA Gonzalez [place] TYPE: Emergency COMPLAINT: - R ELBOW INJURY DIAGNOSES: - Personal history of nicotine dependence - Essential (primary) hypertension - Chronic obstructive pulmonary disease, unspecified - MCFP (current) use of systemic steroids - Personal history of other malignant neoplasm of bronchus and lung - Striking against or struck by other objects, initial encounter - Other terminal operations manager (current) drug therapy - Contusion of right elbow, initial encounter - Allergy status to other antibiotic agents - moth exterminator (current) use of anticoagulants INPATIENT VISIT TRACKING (12 MO.) 01/30/2021 20:03 MARTHA [place] TYPE: Medical Surgical COMPLAINT: - ABD PAIN DIAGNOSES: - moth exterminator (current) use of anticoagulants - Obstructive sleep apnea (adult) (pediatric) - Hypothyroidism, unspecified - Unspecified osteoarthritis, unspecified site - MCFP (current) use of anticoagulants - Vitamin D [...] without esophagitis - Chronic pain syndrome - moth exterminator (current) use of systemic steroids - Hypothyroidism, unspecified - Personal history of pulmonary embolism - Paroxysmal atrial fibrillation - moth exterminator (current) use of systemic steroids - Paroxysmal atrial fibrillation - Chronic obstructive pulmonary disease, unspecified - Vitamin D deficiency, unspecified - Other terminal operations manager (current) drug therapy - Personal history of other malignant neoplasm of bronchus and lung - Rheumatoid arthritis, unspecified - Personal history of transient ischemic attack (TIA), and cerebral infarction without residual deficits - Chronic pain syndrome - Gastro-esophageal reflux disease without esophagitis - Immunodeficiency due to drugs - Unspecified osteoarthritis, unspecified site - Other terminal operations manager (current) drug therapy 10/16/2020 19:[address] [facility] [place] TYPE: Medical Surgical COMPLAINT: - INTRA ABDOMINAL FREE AIR/UTI DIAGNOSES: - moth exterminator (current) use of opiate analgesic - Personal history of pulmonary embolism - Personal history of nicotine dependence - MCFP (current) use of inhaled steroids - Sepsis due to Escherichia coli [E. coli] - Obstructive sleep apnea (adult) (pediatric) - moth exterminator (current) use of systemic steroids - Paroxysmal atrial fibrillation - Rheumatoid arthritis, unspecified - Pure hypercholesterolemia, unspecified - Supraventricular tachycardia - Hyperlipidemia, unspecified - Nausea with vomiting, unspecified - Other custodial (current) drug therapy - Chronic pain syndrome [...] malignant neoplasm of bronchus and lung - MCFP (current) use of anticoagulants - Unspecified inflammatory spondylopathy, cervical region - Candidiasis of skin and nail - Chronic obstructive pulmonary disease, unspecified - Allergy status to other antibiotic agents - Other cystitis without hematuria [email or web address]
--- NOTE | 2021-07-24 19:37 | EKG ---
[facility] [address] [place], [place] [address] Signed Sinus tachycardia Left ventricular hypertrophy with repolarization abnormality ( Sokolow-Hogan ) Abnormal ECG When compared with ECG of 30-JAN-2021 12:45, Sinus rhythm has replaced Atrial fibrillation T wave inversion more evident in Lateral leads Confirmed by JUAN M LIGHT DO ([id number]) on 07/24/2021 7:37:27 PM Electronically Signed By: JUAN M LIGHT DO 07/24/21 1937 PATIENT NAME: TENA VILLALOBOS Electrocardiogram DATE OF : 43 PHYSICIAN: JUAN M LIGHT DO REPORT #: [id number] REPORT IS CONFIDENTIAL AND NOT TO BE RELEASED WITHOUT AUTHORIZATION
== END 2021-07-24 16:51 | disposition home or self-care (01) ==
LOC: ED 10:07
DX: R19.7 Diarrhea, unspecified (principal); G25.2 Other specified forms of tremor; I10 Essential (primary) hypertension; M06.9 Rheumatoid arthritis, unspecified; J44.9 Chronic obstructive pulmonary disease, unspecified; Z86.711 Personal history of pulmonary embolism; Z87.891 Personal history of nicotine dependence; Z79.899 Other long term (current) drug therapy; Z79.52 Long term (current) use of systemic steroids; Z79.01 Long term (current) use of anticoagulants; Z79.891 Long term (current) use of opiate analgesic; Z20.822 Contact with and (suspected) exposure to COVID-19
CPT/HCPCS: 36415; 51701; 70450; 72125; 73110; 80053; 81001; 85025; 85610; 93005; 93010; 99285-25; C9803; J2060; J7030; U0003

== ENCOUNTER 2023-05-19 09:38 | Inpatient (IN) | payer MEDICARE, OTHER ==
[~2023-05-19] VITALS: Ht 170.2 cm; Wt 65.4 kg
[~2023-05-19 09:38] MED LIST changes: +ATIVAN1 MG PO; +BACTRIM DS TAB1 EACH PO; +DIPHEDRYL25 M1 PO; +DOXYCYCLINE HY100 MG PO; +FENTANYL1 EAC1 TOP; +FENTANYL1 EACH TOP; +FEVERALL650 MG PR; +FLUCONAZOLE100 MG PO; +HALOPERIDOL5 MG PO; +HYDROCORTISO453.6 G2 TOP; +LEVSIN-SL0.125 MG SL; +LOPERAMIDE2 M1 PO; +MILK OF MA400 MG/5 M PO; +MORPHINE SULFAT15 MG PO; +NITROFURANTOIN100 MG PO; +NYSTATIN100000 UN1 PO; +ONDANSETRON HCL4 MG PO; +ONDANSETRON HCL8 MG PO; +PHENAZOPYRIDIN200 MG PO; +PREDNISONE1 MG PO; +SENNA8.6 MG PO; +STIOLTO RESPIMAT4 GM INH; +TRAZODONE HCL50 MG PO
[2023-05-19 12:13] LABS: BASOPHILS 0.4 % (0-2); EOSINOPHILS 1.3 % (0-6); HEMATOCRIT 36.8 % (35.0-50.0); HEMOGLOBIN 11.7 g/dL (12.0-18.0); LYMPHOCYTES 43.2 % (24-44); MCH 25.9 (27-36); MCHC 31.9 g/dl (30-36); MONOCYTES 8.1 % (0-12); PLATELET COUNT 266 K/uL (140-440); RBC 4.54 M/ul (4.3-5.7); RDW 21.2 (10.5-15.0)
[2023-05-19 12:42] LABS: ALBUMIN 2.3 g/dL (3.4-5.0); ALBUMIN/GLOBULIN RATIO 0.59 (1.1-2.4); ANION GAP 12.5 (7-21); BILIRUBIN, TOTAL 0.5 ng/dL (0.2-1.0); BUN/CREATININE RATIO 17.77 (6.0-28.6); CALCIUM 8.5 mg/dL (8.5-10.1); CREATININE, SERUM 1.35 mg/dL (0.55-1.02); POTASSIUM 3.5 mmol/L (3.5-5.1); PROTEIN, TOTAL 6.2 g/dL (6.4-8.2)
[2023-05-19] MEDS ORDERED: METOPROLOL SUCC25 MG PO (16:06)
[2023-05-19] MEDS ORDERED: SPIRONOLACTONE25 MG PO (16:07)
[2023-05-19] MEDS ORDERED: MELATONIN3 M3 PO (16:07)
[2023-05-19 16:35] LABS: INR 1.09 (0.80-1.30); PROTIME 13.6 Sec (11.2-14.2)
[2023-05-19 17:09] VITALS: BP 99/38
--- NOTE | 2023-05-19 17:54 | NUR ---
PATIENT ADMITTED TO MED SURG. PATIENT IS ABLE TO DROWSEY, BUT EASILY WOKE, ALERT AND ORIENTED TO ANSWER MOST QUESTIONS. PATIENT IS ON 2L O2 CHRONICALLY. PUREWICK IN PLACE PATIENT IS INCONTINENT AT BASELINE. PATIENT HAS RED BLANCHABLE AREA ON COCCYX, PLAN TO TURN Q2H. PATIENT HAS VISIABLE LEFT CHEST PORT THAT IS NOT ACCESSED. #22 TO RIGHT HAND WITH IVF INFUSING AT 100ML/HOUR. HEEL PROTECTORS ARE ON. TELE # 3. PATIENT IS NOTABLY APNEIC WHEN SHE IS SLEEPING. PATIENT HAD ASKED FOR FOOD IMMEDIATELY, BUT IS NPO. NO NAUSEA NOTED.
--- NOTE | 2023-05-19 19:10 | NUR ---
REPORT RECIEVED FROM MEAGAN BROTHERS. pt C/O NAUSEA AND 8/10 PAIN. PRN PAIN MEDICATION AND ANTIEMETIC MEDICATION ADMINISTERED, SEE JUL. pt REPOSITIONED. NO OTHER NEEDS AT THIS TIME.
--- NOTE | 2023-05-19 19:27 | EKG ---
[facility] [address] [place] [address] Signed Atrial fibrillation with rapid ventricular response Incomplete left bundle branch block ST \T\ T wave abnormality, consider lateral ischemia Abnormal ECG When compared with ECG of 25-NOV-2021 08:00, Atrial fibrillation has replaced Sinus rhythm Incomplete left bundle branch block has replaced Incomplete right bundle branch block Confirmed by ILA MARQUIS MD ([id number]) on 05/19/2023 7:26:55 PM Electronically Signed By: ILA MARQUIS 05/19/23 1927 PATIENT NAME: TENA VILLALOBOS Electrocardiogram DATE OF : 43 PHYSICIAN: ILA MARQUIS REPORT #: [id number] REPORT IS CONFIDENTIAL AND NOT TO BE RELEASED WITHOUT AUTHORIZATION
--- NOTE | 2023-05-19 21:25 | NUR ---
PT REPORTS ABD PAIN/NAUSEA. ALSO REPORTS PAIN IN SHOULDERS AND NECK FROM RECENT FALL. MD ON FLOOR, UPDATED ON PT STATUS. VERBAL ORDERS RECEIVED VERIFIED WITH READBACK METHOD.
[2023-05-19 21:26] VITALS: BP 112/54
[2023-05-19 21:34] VITALS: BP 112/54
--- NOTE | 2023-05-19 21:50 | NUR ---
ASSESSMENT AND VITAL SIGNS DONE. pt C/0 8/10 PAIN. PRN PAIN MEDICATION ADMINISTERED. pt REPOSITIONED. IV ASSESSED, WNL. TELE #3 ON pt HR 84. LEMON SWABS AND CHAP STICK PROVIDED. PURE WICK IN PLACE. HEAL PROTECTORS ON. CALL LIGHT WITHIN REACH. NO OTHER NEEDS AT THIS TIME
--- NOTE | 2023-05-19 22:08 | NUR ---
PHONE CALL FROM MD DESHAWN REVIEWED KUB. THIS RN NOTIFIED MD THAT 275 MCG OF FENTANYL ON pt INCLUDING TWO PATCHES PLACED PRIOR TO ADMISSION. TELEPHONE ORDER RECEIVED TO REMOVE 75 MCG PATCH THAT WAS PLACED TODAY, ORDER REPEATED BACK FOR VERIFICATION.
--- NOTE | 2023-05-20 00:31 | NUR ---
TELE #[address] AFIB. HR 80-130'S. PT LYING IN BED WITH EYES CLOSED. RESPIRATIONS EVEN. PT WAKES EASILY. SpO2 97% WITH 2L/NC IN PLACE. PT REPORTS SHE IS RESTING WELL, PAIN IMPROVED. DENIES CHEST PAIN OR SOB. DUE TO VOID. BLADDER SCANNED FOR 210 ML. PT DENIES THE NEED TO VOID. PUREWICK IN PLACE. ASSISTED PT TO REPOSITION TO LEFT SIDE WITH PILLOWS. ASSISTED WITH ORAL CARE. NO FURTHER NEEDS. CALL LIGHT IN REACH.
[2023-05-20 01:43] VITALS: BP 127/81
--- NOTE | 2023-05-20 01:45 | NUR ---
pt SITTING UP IN BED TALKING OUT LOUD. THIS RN WENT IN RM TO SEE pt NEEDED ANYTHING. pt STATED SHE DIDN'T KNOW WHERE SHE WAS AT OR WHERE SHE WAS GOING TO SLEEP. THIS RN REORIANTATED THE pt TO PLACE. pt CALMED DOWN. ASSESSMENT AND VITAL SIGNS DONE. pt REPOSITIONED. PURE WICK IN PLACE. NO OTHER NEEDS AT THIS TIME. CALL LIGHT WITHIN REACH.
--- NOTE | 2023-05-20 04:22 | NUR ---
pt RESTING IN BED WITH EYES CLOSED. HR 85. CALL LIGHT WITHIN REACH.
[2023-05-20 05:17] VITALS: BP 120/70
--- NOTE | 2023-05-20 05:19 | NUR ---
VITAL SIGNS DONE. NEW PURE WICK PLACED. BRIEF CHANGED. pt C/O 12/08 PAIN. pt DENIES NAUSEA AT THIS TIME. NO OTHER NEEDS AT THIS TIME. CALL LIGHT WITHIN REACH.
[2023-05-20 06:05] LABS: BASOPHILS 0.4 % (0-2); HEMATOCRIT 35.7 % (35.0-50.0); HEMOGLOBIN 11.3 g/dL (12.0-18.0); LYMPHOCYTES 44.9 % (24-44); MCH 25.7 (27-36); MCHC 31.6 g/dl (30-36); MCV 81.5 fl (81-99); MONOCYTES 9.6 % (0-12); NEUTROPHILS 41.1 % (39-80); PLATELET COUNT 266 K/uL (140-440); RBC 4.38 M/ul (4.3-5.7)
[2023-05-20 06:17] LABS: ANION GAP 10.7 (7-21); BUN/CREATININE RATIO 17.09 (6.0-28.6); CALCIUM 7.7 mg/dL (8.5-10.1); CREATININE, SERUM 1.17 mg/dL (0.55-1.02); POTASSIUM 3.7 mmol/L (3.5-5.1)
--- NOTE | 2023-05-20 06:25 | NUR ---
MD ON FLOOR. NOTIFIED OF LOW URINE OUTPUT. VERBAL ORDERS FOR STRAIGHT CATH RECEIVED VERIFIED WITH READBACK METHOD.
--- NOTE | 2023-05-20 06:30 | NUR ---
pt STRAIGHT CATHED FOR A UA. pt HAD LOW URINE OUTOUT THROUGH OUT THE NIGHT. UA SENT. pt TOLERATED. pt URINE HAD A FOWL ODER AND IS CONCENTRATED. CALL LIGHT IN REACH.
[2023-05-20 07:06] LABS: BILIRUBIN, URINE NEGATIVE (negative); BLOOD/HGB, URINE SMALL (Negative); KETONE, URINE NEGATIVE (Negative); LEUK ESTERASE, URINE SMALL (negative); NITRITE, URINE POSITIVE (negative)
[2023-05-20 07:20] LABS: BACTERIA, URINE 3+ /hpf (negative); CASTS, URINE WBC CAST 1+ \\lpf; COLLECTION TYPE, URINE CATH; CRYSTALS, URINE NONE SEEN (0-1+); EPITHELIAL CELLS, URINE NS /lpf (0-1+); RED BLOOD CELLS, URINE 0-1 /hpf (0-5); REFLEX CULTURE, URINE Yes (No); WHITE BLOOD CELLS, URINE 21-40 /HPF (0-5)
--- NOTE | 2023-05-20 07:30 | NUR ---
Got report from cook night nurse. Patient currently sleeping in bed with NC on. RT is in the room and will be waking patient up.
--- NOTE | 2023-05-20 08:20 | NUR ---
This MANAGER NIGHT entered the room to check on pt. PT is currently laying in bed. Pure wick in place. Pt denies any needs at this time. Call light within reach.
[2023-05-20 09:43] VITALS: BP 113/66
--- NOTE | 2023-05-20 09:54 | NUR ---
OUTSIDE SALES ACCOUNT EXECUTIVE entered pt room to obtain vital signs. Pt stated she is having neck and back pain. Pt rated pain 9/10. Pt stated 9/10 pain is her "normal." Vitals obtained. Nurse notified of pain level. Pt laying in supine position. HOB elevated to 30 degrees. Supported by pillows. Heel protectors on. Purewick in place. Call light within reach.
--- NOTE | 2023-05-20 10:18 | NUR ---
PATIENT VERY SWEET AND TALKATIVE THIS MORNING. ASSESMENT DONE. PATIENT GIVEN TYLENOL FOR PAIN. PATIENT IS ON TELE #3. PUREWICK IN PLACE. PATIENT STILL NPO WITH IV FLUIDS RUNNING.SHE HAS NC ON. CALL LIGHT WITHIN REACH, BED IN LOW POSTION.
--- NOTE | 2023-05-20 10:24 | NUR ---
MS STEPHANIE. PT APPEARED UPSET. ACCESSED SPIRITUAL RESOURCES. PROVIDED PRAYER. PT CALMED. 15 MINUTES.
--- NOTE | 2023-05-20 11:40 | NUR ---
USED CAR MAKE READY MECHANIC ASSISTED PT WITH SEYMOUR CARE. NEW PUREWICK APPLIED. PT REPOSITIONED IN LEFT SIDE-LYING POSITION. SUPPORTED BY PILLOWS. HEEL PROTECTORS IN PLACE. NO OTHER NEEDS AT THIS TIME. CALL LIGHT WITHIN REACH.
--- NOTE | 2023-05-20 12:37 | NUR ---
PATIENT STILL HAVING SOME NECK PAIN, WARM PACK GIVEN. PATIENT SAT UP IN BED AND GOWN FIXED ON PATIENT. PATIENTS HAIR COMBED WELL. PATIENT HAD OXYGEN OFF. NC WAS PLACED BACK ON PATIENT.
[2023-05-20 14:37] VITALS: BP 126/63
--- NOTE | 2023-05-20 14:45 | NUR ---
PUBLIC RELATIONS ACCOUNT SUPERVISOR entered room to rotate pt and record urine output. There has been no urine output using the purewick within the last 4 hours. Brief was checked and is dry. Nurse notified of decreased urine output. No other needs at this time. Call light within reach.
--- NOTE | 2023-05-20 14:47 | NUR ---
UR NOTE MCG VOMITING: OBSERVATION CARE (ISC) 05/19/23 MET OBSERVATION CARE ADMISSION CRITERIA
--- NOTE | 2023-05-20 15:12 | NUR ---
IN WITH PATIENT HE IS AWARE OF HER URINE OUTPUT. WE WILL INCREASE DIET TO CLEAR LIQUID AND MONITOR.PT IS IN ROOM WITH HER.
--- NOTE | 2023-05-20 15:53 | NUR ---
EARLIER THIS MORNING THIS RN INTO SPEAK WITH PATIENT. CASE MANAGEMENT ASSESSMENT COMPLETED WITH PATIENT. WHEN DISCUSSING IF THE PATIENT WOULD LIKE TO CONTINUE WITH HOSPICE SERVICES AT DISCHARGE, PATIENT THAT I WAIT FOR HER CG DENISHA TO DISCUSS HER OPTIONS. INTO ROOM WITH DR. MARQUIS. DENISHA PATIENT CAREGIVER AT THE BEDSIDE. DR. MARQUIS DISCUSSING FURTHER PLAN OF CARE FOR THE PATIENT STAY. DIET INCREASED TO CLEAR LIQUIDS TO SEE IF PATIENT CAN TOLERATE PO INTAKE. DENISHA EXPLAINS THAT THE PATIENT HAD BEEN ON HOSPICE SERVICES WITH [facility] PRIOR TO HER ADMISSION, BUT HE THEY DID NOT FEEL IT WAS A GOOD FIT FOR THEM. DENISHA STATES THAT HE HAD REQUESTED CG ASSISTANCE HE WAS HAVING A DIFFICULT TIME KEEPING UP WITH THE PATIENT. TENA STATES SHE HAS NOT LIKED BEING ON THE FENTANYL PATCHES AND HAS BEEN HILLUCINATIONS AT NIGHT WHICH HAS BEEN KEEPING DENISHA AWAKE. DENISHA STATES THEY HAVE NOT BEEN ABLE TO GET ANY FURTHER ASSISTANCE AT HOME. DISCUSSED THE THE DR[facility]ERS OF HOSPICE CARE AND PATIENT STATES SHE WOULD STILL LIKE TO PERSUE HOSPICE CARE, BUT WITH A DIFFERENT COMPANY. HOSPICE COMPANY LIST DISCUSSED WITH PATIENT AND DENISHA. THEY REQUEST [facility] HOSPICE REQUESTED BY PATIENT AND SO. DR. MARQUIS UPDATED AND REFERRAL FAXED TO CHERELLE AT [facility]. DISCUSSED THAT PATIENT DOES NOT HAVE A PCP AND WILL NEED A HOSPITAL BED. CHERELLE WILL REVIEW THE CHART WITH HER RN AND MD THEN CALL TOMORROW WITH FURTHER PLANS.
[2023-05-20] MEDS ORDERED: LEVOTHYROXINE112 MCG PO (15:57)
[2023-05-20] MEDS ORDERED: TYLENOL325 MG PO (15:59)
--- NOTE | 2023-05-20 16:00 | NUR ---
NEW PUREWICK WAS PLACED AND [facility] CARE DONE.
[2023-05-20] MEDS ORDERED: MOTRIN IB200 MG PO (16:01)
[2023-05-20] MEDS ORDERED: FENTANYL1 EAC3 TD (16:02)
--- NOTE | 2023-05-20 16:05 | NUR ---
MED REC COMPLETE
--- NOTE | 2023-05-20 16:43 | EKG ---
[facility] [address] [place] [address] Signed Sinus rhythm with 1st degree AV block with premature supraventricular complexes Nonspecific ST and T wave abnormality Abnormal ECG When compared with ECG of 19-MAY-2023 12:25, (Unconfirmed) Sinus rhythm has replaced Atrial fibrillation Nonspecific T wave abnormality, worse in Inferior leads Confirmed by ILA MARQUIS MD ([id number]) on 05/20/2023 4:43:40 PM Electronically Signed By: ILA MARQUIS 05/20/23 1643 PATIENT NAME: TENA VILLALOBOS Electrocardiogram DATE OF : 43 PHYSICIAN: ILA MARQUIS REPORT #: [id number] REPORT IS CONFIDENTIAL AND NOT TO BE RELEASED WITHOUT AUTHORIZATION
--- NOTE | 2023-05-20 17:24 | NUR ---
DIRECTOR OF FINANCIAL REPORTING ASSISTED PT WITH [facility] AND BRIEF CHANGE. NEW PURE WICK APPLIED. PT IS CURRENTLY POSITIONED ON HER RIGHT SIDE. HEEL PROTECTORS ON. CALL LIGHT WITHIN REACH. NO OTHER NEEDS AT THIS TIME.
[2023-05-20 18:21] VITALS: BP 120/76
--- NOTE | 2023-05-20 19:40 | NUR ---
REPORT RECEIVED FROM ZEV SORIA. pt FOUND TO BE OFF OXYGEN, SPOT CHECK SPO2 94% ON RA. 2L OXYGEN BY NC REAPPLIED. pt PULLED IV. FLUID CLEANED FROM FLOOR BY RN. BLOOD CLEANED FROM HAND. pt IS CONFUSED, REORIENTS WHEN GIVEN TIME. ORIGINALLY SAYS "I DON'T KNOW WHERE I AM". THEN STATES IN THE HOSPITAL. ORIENTED TO PERSON, DATE. pt THEN REMEMBERS HAS PUREWICK. FENTANYL PATCHES IN PLACE RIGHT UPPER ARM. BED ALARM SET.
[2023-05-20 19:53] VITALS: BP 132/63
--- NOTE | 2023-05-20 20:30 | NUR ---
NEW IV STARTED IN RIGHT FOREARM, TWO ATTEMPTS. IVF INFUSING WNL. pt AWAKE, CONFUSED OFF AND ON STATING SHE NEEDS TO GET UP, THEN REMEMBERING SHE DOESN'T GET UP, ASKS FOR LIGHT BULBS WHEN SHE LEAVES, "THOSE ROUND WHITE ONES". MD UPDATED VERBALLY. ASSESSMENT COMPLETE. PUREWICK CHANGED, [facility] COMPLETE. pt REPOSITIONED IN BED 2PA, PILLOW UNDER RIGHT HIP. BED ALARM ON. DRINK OF WATER AND SPRITE PROVIDED. CALL LIGHT IN REACH.
--- NOTE | 2023-05-20 21:33 | NUR ---
pt YELLING OUT. RN IN ROOM TO CHECK ON pt. pt STATES "I WAS MAKING SURE NO ONE FORGOT ABOUT ME". pt DENIES NEEDS. BED ALARM HEAT AND FROST INSULATOR HELPER LIGHT IN REACH. IVF INFUSING WNL.
--- NOTE | 2023-05-20 23:53 | NUR ---
ROUNDED ON pt. RESTING IN BED AWAKE. COMPLAINS OF 9/10 BACK PAIN. PRN PAIN MEDICATION ADMINISTERED. pt REPOSITIONED IN BED, 2PA FLOATING WITH PILLOWS UNDER EACH HIP. NEW BAG IVF INFUSING WNL. BED ALARM ON. pt FOUND WITH OXYGEN OFF, SPO2 SPOT CHECK 96% ON RA. OXYGEN LEFT OFF, pt STATES "I DON'T WEAR IT AT HOME ALL THE TIME". CALL LIGHT IN REACH.
--- NOTE | 2023-05-21 02:21 | NUR ---
IN ROOM FOR VS. pt RESTING IN BED WITH EYES CLOSED, RR 14, HR 81 SR ON TELE 3. pt ALLOWED TO REST AT THIS TIME. BED ALARM ON. CALL LIGHT IN REACH.
[2023-05-21 04:23] VITALS: BP 131/63
--- NOTE | 2023-05-21 04:50 | NUR ---
pt AWAKE RESTING IN BED, RESTLESS. COMPLAINS OF 9/10 BACK AND NECK PAIN. PRN TYLENOL NJ ADMINISTERED. ATTENDS CHANGED, SMALL SMEAR OF BM NOTED. INCONTINENT OF URINE AROUND PUREWICK. NEW PUREWICK PLACED. pt SOB WITH TURNING, 1L OXYGEN BY NC APPLIED. pt REPOSITIONED TO FLOATING WITH PILLOWS UNDER HIPS. SPRITE PROVIDED PER REQUEST. ASSESSMENT COMPLETE. pt REQUESTING BREATHING TREATMENT, RT NOTIFIED.
--- NOTE | 2023-05-21 07:20 | NUR ---
REPORT RECEIVED FROM ZEV WATKINS. PT LAYING IN BED AND RESPONDS WHEN ADDRESSED. PT REQUESTING SOUP. ZEV WATKINS BRINGS PT BROTH. PT ON 1L NC. RR EVEN AND UNLABORED. 2 FENTYNOL PATHCHES NOTED TO PTs RIGHT ARM. PT DENIES ANY OTHER NEEDS AT THIS TIME. CALL LIGHT IN REACH.
--- NOTE | 2023-05-21 08:14 | NUR ---
IN TO ADMINISTER MEDICATIONS, SEE MAR. PT REPORTING PAIN 8/10 IN BACK. PRN USAMA MEDICATION ADMINISTERED, SEE MAR. ASSESSMENT COMPLETE. LUNG SOUNDS CLEAR IN TREMAINE. EXPIRATORY WHEEZE IN RUL. COARSE AND DIMINISHED IN RLL AND LLL. BOWEL TONES ACTIVE. SCATTERED BRUISING NOTED TO BLE. PT A&O TO SELF, PLACE, MONTH AND YEAR. ASKED PT WHAT THE DATE IS AND PT STATES "I DO NOT KNOW." INFORMED PT IT IS THE . ASKED PT WHY THE PT IS IN THE HOSPITAL AND PT STATES "I AM NOT SURE WHY. . . BECAUSE OF HOSPICE?" PT DENIES ANY OTHER NEEDS AT THIS TIME. CALL LIGHT IN REACH. BED ALARM ON. SIDE RAILS UP FOR SAFTEY.
--- NOTE | 2023-05-21 09:24 | NUR ---
[facility] UNABLE TO ADMIT PATIENT UNTIL NEXT WEEK. CALL PLACED TO [facility] TO INQUIRE TIME FRAME FOR ADMISSION. MESSAGE LEFT.
[2023-05-21 09:49] VITALS: BP 132/61
--- NOTE | 2023-05-21 09:54 | NUR ---
SPOKE WITH CL AT [facility]. ABLE TO ADMIT PATIENT TOMORROW IF ACCEPTED. CHART FAXED TO [facility].
--- NOTE | 2023-05-21 09:54 | NUR ---
THIS DINKEY SKINNER ENTERED PT ROOM TO OBTAIN VITALS. PT STATED, "I THINK I NEED TO POOP." DINKEY SKINNER ASSISTED PT ONTO THE BEDPAN. [facility] PROVIDED. BARRIER CREAM APPLIED. BRIEF AND PUREWICK CHANGED. PT POSITIONED WITH PILLOW UNDER LEFT SIDE. NO OTHER NEEDS AT THIS TIME. CALL LIGHT WITHIN REACH.
--- NOTE | 2023-05-21 10:10 | NUR ---
WAITING FOR PHARMACY TO BRING IV FLUIDS 1/2 NS WITH 20mEq OF POTASSIUM.
--- NOTE | 2023-05-21 10:11 | NUR ---
SPOKE WITH PATIENT REGARDING HOSPICE OPTIONS AND ADMISSION TIMEFRAMES. STATES SHE WOULD BE OK WITH USING EITHER HOSPICE, HOWEVER SHE WOULD LIKE TO SPEAK WITH SIGNIFICANT OTHER, DENISHA. ATTEMPT TO CALL DENISHA. NO ANSWER. MESSAGE LEFT WITH CALL BACK NUMBER PROVIDED.
--- NOTE | 2023-05-21 10:25 | NUR ---
RESPONDED TO PT CALLING OUT. PT APPEARED TO BE DISORIENTED, NOT RECOGNIZING WHERE SHE WAS. HELPED PT TO RE-ORIENT TO LOCATION. PT CALMED SOMEWHAT. ASKED FOR UPDATE ON PAIN MEDICATION. CHECKED WITH ZEV SCHUMACHER WHO WAS ON HER WAY. PROVIDED SUPPORTIVE PRESENCE UNTIL ZEV SCHUMACHER ARRIVED. PROVIDED SILENT PRAYER.
--- NOTE | 2023-05-21 10:30 | NUR ---
IN TO ADMINISTER MEDICATIONS, SEE MAR. PT REPORTING PAIN 02/08. PRN RECTAL TYLENOL ADMINISTERED, SEE JUL. PT LAYING IN BED ON RIGHT SIDE VISITING WITH SIGNIFICANT OTHER. PT DENIES ANY OTHER NEEDS FROM THIS RN AT THIS TIME. GRACIELA CRAWFORD IN REACH. DR. MARQUIS IN ROOM.
--- NOTE | 2023-05-21 10:32 | NUR ---
VERBAL ORDER RECEIVED FROM DR. MARQUIS. VERIFIED WITH READBACK.
--- NOTE | 2023-05-21 10:40 | NUR ---
PRN PAIN MEDICATION ADMINISTERED, SEE JUL. PT LAYING ON RIGHT SIDE VISITING WITH SIGNIFICANT OTHER. PT DENIES ANY OTHER NEEDS FROM THIS RN. CALL LIGHT IN REACH. BED ALARM ON. SIDE RAILS UP FOR SAFTEY.
--- NOTE | 2023-05-21 11:38 | NUR ---
Patient states she spoke with Mirza, her significant other. They are ok with using [facility]. Arti states they can admit patient tomorrow and likely deliver hospital bed today. Patient notified.
--- NOTE | 2023-05-21 11:40 | NUR ---
Attempt to contact Mirza, patient's significant other. No answer.
--- NOTE | 2023-05-21 11:57 | NUR ---
SPOKE WITH DENISHA, SIGNIFICANT OTHER. STATES HE ABSOLUTELY WILL NOT TAKE PATIENT HOME UNTIL NEXT WEEK AND WOULD LIKE TO USE [facility] AND NOT [facility]. STATES HE WAS TOLD PATIENT COULD STAY IN THE HOSPITAL UNTIL THE MIDDLE OF NEXT WEEK SO THAT IS WHAT HE WANTS. Veda MEYERS, RN/MOTOR VEHICLE LICENCE EXAMINER, PRESENT DURING PHONE CONVERSATION WELL. SHE EXPLAINS TO DENISHA, THERE IS A CHANCE HE MAY RECIEVE A HOSPITAL BILL IF NOT TAKING PATIENT HOME WHEN HOSPICE IS AVAILABLE TO ADMIT TOMORROW. DENISHA VOICES UNDERSTANDING. STATES HE WANTS PATIENT TO STAY IN HOSPITAL UNTIL [facility] CAN ADMIT PATIENT. REPEATS THIS STATEMENT MULTIPLE TIMES DURING CONVERSATION.
--- NOTE | 2023-05-21 12:22 | NUR ---
OCCUPATIONAL THERAPY TEACHER ENTERED PT ROOM TO PROVIDE [facility]. PT STATED, "I THINK I HAVE DIARRHEA." [facility] C[facility] AND BRIEF CHANGE PREFORMED. KEVEN KO APPLIED. PT RESPOSITIONED IN BED. PT STATES, "MY NECK HURTS SO BAD." PT IS CRYING AND HAS FACIAL GRIMACING. PT IS REQUESTING MORE PAIN MEDICATION. PRIMARY RN NOTIFIED OF INCREASE IN PAIN. CALL LIGHT WITHIN REACH.
--- NOTE | 2023-05-21 12:25 | NUR ---
IN TO ROUND ON PT. PT REPORTING PAIN 02/08. PRN PAIN MEDICATION ADMINISTERED, SEE MAR. NO OTHER NEEDS FROM THIS RN AT THIS TIME. CALL LIGHT IN REACH. BED ALARM ON. SIDE RAILS UP FOR SAFTEY.
--- NOTE | 2023-05-21 13:25 | NUR ---
IN PT SITTING UP ON EDGE OF BED. PT BEGINS ASKING WHERE PT IS. INFORMED PT THAT PT IS IN THE HOSPITAL. ASKED PT WHAT THE DATE IS AND PT STATES "MAY 24 1923." INFORMED PT THAT IT IS MAY 21 2023. PT STATES "HOW DID I GET HERE, I CANNOT WALK." INFORMED PT THAT PT IS IN THE HOSPITAL AND THAT PT HAS NOT GOTTEN OUT OF BED. PT STATES "DID I HURT ANYBODY." INFORMED PT THAT PT HAS NOT HURT ANYONE. OLGA RICCI IN TO ASSIST REPOSITIONING PT IN BED. PT REPOSITIONED IN BED. BARRIER CREAM APPLIED TO GROIN REDNESS IS NOTED. PT LAYING IN BED SEMI-FOWLERS. RR EVEN AND UNLABORED. BED ALARM ON. CALL LIGHT IN REACH. SIDE RAILS UP FOR SAFTEY. PT DENIES ANY OTHER NEEDS AT THIS TIME.
--- NOTE | 2023-05-21 13:38 | NUR ---
THIS RN CALLED DR. MARQUIS TO INFORM HIM OF PTs CONFUSION. NO NEW ORDERS. AWARE.
--- NOTE | 2023-05-21 14:00 | NUR ---
IN TO ROUND ON PT. PT LAYING IN BED SEMI-FOWLERS ON LEFT SIDE. EYES CLOSED, RR EVEN AND UNLABORED. RR OF 18 NOTED. NO NEEDS IDENTIFIED AT THIS TIME. CALL LIGHT IN REACH. BED ALARM ON SIDE RAILS UP FOR SAFTEY.
[2023-05-21 14:49] VITALS: BP 127/60
--- NOTE | 2023-05-21 16:14 | NUR ---
IN TO ROUND ON PT. PT SITTING UP IN BED OPENING SOCKS WITH OT AND PHYSICAL THERAPY. PT REPORTING PAIN 02/08. PRN PAIN MEDICATION ADMINISTERED, SEE JUL. ASSESSMENT COMPLETE. LUNG SOUNDS COARSE THROUGHOUT ALL LOBES. DIMISHED IN RLL AND LLL. WHEEZE THROUGHOUT ALL LOBES. BOWEL TONES ACTIVE. PT DENIES NAUSEA AT THIS TIME. NO OTHER NEEDS FROM THIS RN AT THIS TIME. CALL LIGHT IN REACH. OT AND PHYSICAL THERAPY IN ROOM WITH PT.
--- NOTE | 2023-05-21 17:24 | NUR ---
IN TO ROUND ON PT. PT LAYING IN BED AND RESPONDS WHEN ADDRESSED. PT CLOSES EYES AND GOES BACK TO RESTING. RR EVEN AND UNLABORED. NO OTHER NEEDS IDENTIFIED AT THIS TIME. CALL LIGHT IN REACH. BED ALARM ON. SIDE RAILS UP FOR SAFTEY.
[2023-05-21 17:44] VITALS: BP 137/67
--- NOTE | 2023-05-21 19:00 | NUR ---
IN TO ROUND ON PT. TELE DCd PER ORDERS. PT RESPONDS WHEN ADDRESSED. PT REQUESTING PRN PAIN MEDICATION WILL RETURN. NO OTHER NEEDS REPORTED. CALL LIGHT IN REACH. BED ALARM ON.
--- NOTE | 2023-05-21 19:35 | NUR ---
SHIFT REPORT RECEIVED FROM DAYSVAFT ZEV SCHUMACHER AT BEDSIDE. pt AWAKE AND RESTING IN BED, ON 2LNC-CHRONIC PER REPORT. IV SITE WNL, IV FLUIDS INFUSING DIRECTED. ZEV SCHUMACHER PROVIDING pt WITH PRN PAIN MEDICATION. BED ALRM ON FOR SAFETY AND CALL LIGHT IN REACH.
--- NOTE | 2023-05-21 19:55 | NUR ---
IN WITH ZEV VASQUEZ. PRN PAIN MEDICATION ADMINISTERED, SEE MAR. 2 FENTYNAL PATCHED NOTED TO PTs RIGHT SHOULDER. PT DENIES ANY OTHER NEEDS AT THIS TIME. GRACIELA LIGHT IN REACH. BED ALARM ON. SIDE RAILS UP FOR SAFTEY.
--- NOTE | 2023-05-21 20:00 | NUR ---
RT CHAI IN ROOM PROVIDING pt WITH SCHEDULED BREATHING TREATMENT.
--- NOTE | 2023-05-21 22:00 | NUR ---
CLARIFIED CURRENT MORPHINE ORDER ORDER REPORTS AVAILABLE Q2H AND IN COMMENTS AVAILABLE Q4H, VERIFIED WITH DR MARQUIS ORDER IS IN FACT Q2H.
--- NOTE | 2023-05-21 22:12 | NUR ---
assessment complete, scheduled meds given along with prn pain medication for reported 9/10 abd pain. pt denies nausea, drinking liquids. iv site wnl, flushes well and iv fluids infusing as directed. scattered wheezes noted, no distress. pt denies sob, will continue to monitor. rt vladimir plans on reassessing pt "around midnight". bed alarm on and call light in reach. new purewick in place and bhanu care completed following incontinence of stool.
[2023-05-21 22:25] VITALS: BP 136/61
--- NOTE | 2023-05-21 22:27 | NUR ---
THIS IMITATION MARBLE MECHANIC CHARTED PT. VITALS AND I/OS APPROPRIATELY. ASSISTED PRIMARY RN WITH RESPOSITIONING, PLACEMENT OF NEW PUREWICK, AND DEPEND CHANGE. FRESH ICE WATER PROVIDED. CALL LIGHT LEFT WITHIN REACH. NO OTHER NEEDS AT THIS TIME.
--- NOTE | 2023-05-22 00:29 | NUR ---
rounded on pt, pt awake and resting in bed, on ra. rt vladimir in room for prn breathing treatment, initiated by rt. iv site wnl, iv fluids infusing as directed. pt in good spirits, call light in reach and bed alarm on for safety.
--- NOTE | 2023-05-22 01:55 | NUR ---
THIS TENSILE TESTER HEARD PT. MOANING IN PAIN. WHEN ENTERING ROOM ASKED PATIENT IF SHE WOULD LIKE REPOSITIONED. RN ALEJANDRA ASSISTED WITH REPOSITIONING DURING THIS TIME DISCOVERED PATIENT WAS SOILED DUE TO SUCTION FOR PUREWICK NOT BEING TURNED ON. THIS TENSILE TESTER AND RN PERFORMED FULL BED CHANGE, ASSISTED PT WITH [facility], APPLIED NEW DEPEND AND NEW PUREWICK. PT. STATED SHE WAS COMFORTABLE AT THIS TIME. CALL LIGHT LEFT WITHIN REACH, BED ALARM SET, NO OTHER NEEDS AT THIS TIME.
--- NOTE | 2023-05-22 02:43 | NUR ---
CALL LIGHT ANSWERED, pt REPORTS 02/08 NECK/BACK PAIN-SEE EMAR FOR PRN PAIN MEDICATION GIVEN. NO ADDITIONAL NEEDS OR CONCERNS VERBALIZED, CALL LIGHT IN REACH. BED ALARM REMAISN ON FOR SAFETY. IV SITE WNL, FLUIDS INFUSING DIRECTED.
--- NOTE | 2023-05-22 02:49 | NUR ---
ASSESSMENT COMPLETE, pt REPORTS STILL PAINFUL BUT PAIN MEDICATION, "STARTING TO HELP". NO ACUTE CAHNGES TO ASSESSMENT, CALL LIGHT IN REACH AND BED ALARM ON FOR SAFETY.
--- NOTE | 2023-05-22 03:38 | NUR ---
ROUNDED ON pt, pt RESTING IN BED WITH EYES CLOSED, ON RA. RR EVEN AND UNLABORED, NO DISTRESS NOTED. CALL LIGHT IN REACH. BED ALARM ON.
[2023-05-22 04:59] VITALS: BP 118/59; BP 136/61
--- NOTE | 2023-05-22 05:01 | NUR ---
PT. VITALS AND I/OS CHARTED ACCORDINGLY. PT READJUSTED IN BED, ROOM TIDIED, TRASH CANS EMPTIED, FRESH ICE WATER AND BLANKET PROVIDED. BED ALARM SET. CALL LIGHT LEFT WITHIN REACH. RN NOTIFIED OF PT. REQUEST FOR PAIN MEDS. NO OTHER NEEDS AT THIS TIME.
--- NOTE | 2023-05-22 05:27 | NUR ---
NO ACUTE CHANGES TO ASSESSMENT, IV SITE TO LEFT HAND PAINFUL WHEN FLUSHED. SITE DC'D PER PROTOCOL, CATHETER TIP INTACT. IV FLUIDS CONTINUE TO INFUSE DIRECTED TO LEFT WRIST SITE. VS AND I&O'S COLLECTED AND CHARTED. CALL LIGHT IN REACH.
--- NOTE | 2023-05-22 07:10 | NUR ---
REPORT RECEIVED FROM ZEV VASQUEZ. PT SITTING UP IN BED AND RESPONDS WHEN ADDRESSED. IV FLUSHES WNL. NEW FLUIDS STARTED BY ZEV VASQUEZ, SEE MAR. PT DENIES ANY OTHER NEEDS AT THIS TIME. CALL LIGHT IN REACH. BED ALARM ON. SIDE RAILS UP FOR SAFTEY.
--- NOTE | 2023-05-22 07:13 | NUR ---
new bag iv fluids hung and infusing as directed, iv site wnl. 200mcg fentanyl remains in place to right shoulder. bed alrm on and call light in reach.
--- NOTE | 2023-05-22 08:30 | NUR ---
IN TO ADMINISTER MEDICATIONS, SEE JUL. IV FLUSHES WNL. PRN PAIN MEDICATION ADMINISTERED, SEE JUL. PT REPORTING PAIN 02/08. 2 FENTANYL PATCHES NOTED TO PTs RIGHT ARM. ASSESSMENT COMPLETE. LUNG SOUNDS COARSE AND WHEEZES THROUGHOUT ALL LOBES. DIMINISHED IN LLL. BOWLE TONES ACTIVE. PT REPORTS ABD TENDERNESS WITH PALPATION. ABD DISTENTION NOTED. BLE NOTED TO HAVE BRUISING. PT SITTING UP IN BED WITH BREAKFAST TRAY. PT DENIES ANY OTHER NEEDS AT THIS TIME. CALL LIGHT IN REACH. BED ALARM ON. SIDE RAILS UP FOR SAFTEY.
--- NOTE | 2023-05-22 08:42 | NUR ---
2 100mcg FENTANYL PATCHES REMOVED FROM PTs RIGHT SHOULDER AND WASTED IN MED ROOM WITH EPHRAIM Horowitz RN. 2 NEW PATCHES PLACED TO PTs LEFT SHOULDER, SEE JUL.
[2023-05-22 09:09] VITALS: BP 117/89
--- NOTE | 2023-05-22 10:12 | NUR ---
IN TO ROUND ON PT. PT SITTING UP IN BED. PT REPORTING PAIN 02/08. PRN PAIN MEDICATION ADMINISTERED, SEE MAR. PT REQUESTING "TOAST AND EGGS." INFORMED PT THAT PT IS ON A CLEAR LIQUID DIET. PT DENIES ANY OTHER NEEDS AT THIS TIME. CALL LIGHT IN REACH. BED ALARM ON. SIDE RAILS UP FOR SAFTEY.
--- NOTE | 2023-05-22 10:26 | NUR ---
MS ROUNDS. PT APPEARED TO BE RESTING QUIETLY. DID NOT DISTURB. PROVIDED SILENT PRAYER.
--- NOTE | 2023-05-22 10:40 | NUR ---
RESPONDED TO PT CALL. PT INDICATED SHE WAS IN PAIN. INFORMED ZEV MORE WHO RESPONDED TO IMPROVE PT COMFORT. PROVIDED SUPPORTIVE PRESENCE. PROVIDED SILENT PRAYER.
--- NOTE | 2023-05-22 11:12 | NUR ---
UR NOTE [facility] INPATIENT PALLIATIVE CARE CRITERIA ([facility]) 05/22/23 MET CLINICAL INDICATIONS FOR ADMISSION TO INPATIENT CARE
--- NOTE | 2023-05-22 11:32 | NUR ---
IN TO ROUND ON PT. PT WORKING WITH OT. NO NEEDS FROM THIS RN AT THIS TIME. CALL LIGHT IN REACH.
--- NOTE | 2023-05-22 13:30 | NUR ---
IN TO ROUND ON PT. PT REPORTING BM. SMEAR BM NOTED. [facility]-CARE PROVIDED. NEW ATTENDS PLACED. NEW PUREWICK PLACED. PT LAYING IN BED AND DENIES ANY OTHER NEEDS AT THIS TIME. CALL LIGHT IN REACH. BED ALARM ON. SIDE RAILS UP FOR SAFTEY.
--- NOTE | 2023-05-22 13:56 | NUR ---
IN TO ADMINISTER PRN PAIN MEDICATION PT REPORTING PAIN 02/08. PRN PAIN MEDICATION ADMINISTERED, SEE MAR. NO OTHER NEEDS REPORTED AT THIS TIME. CALL LIGHT IN REACH. BED ALARM ON. SIDE RAILS UP FOR BARON.
--- NOTE | 2023-05-22 15:00 | NUR ---
IN TO ROUND ON PT. PT LAYING IN BED SEMI-FOWLERS. EYES CLOSED, RR EVEN AND UNLABORED. RR OF 18 NOTED. PT ALLOWED TO REST AT THIS TIME. CALL LIGHT IN REACH. BED ALARM ON. SIDE RAILS UP FOR SAFTEY.
--- NOTE | 2023-05-22 15:35 | NUR ---
IN TO ADMINISTER MEDICATION, SEE MAR. PT REPORTING PAIN 02/08. SCHEDULED MEDICATION ADMINISTERED IN APPLE SAUCE. PT TAKES MEDICATION IN APPLE SAUCE WITH NO ISSUES. PT DENIES ANY OTHER NEEDS AT THIS TIME. CALL LIGHT IN REACH. BED ALARM ON. SIDE RAILS UP FOR SAFTEY.
--- NOTE | 2023-05-22 16:54 | NUR ---
IN TO ROUND ON PT. PT RESTING IN BED ON RIGHT SIDE. EYES CLOSED. RR EVEN AND UNLABORED. RR OF 20 NOTED. PT ALLOWED TO REST AT THIS TIME. IV INFUSING WNL. CALL LIGHT IN REACH. BED ALARM ON. SIDE RAILS UP FOR SAFTEY.
--- NOTE | 2023-05-22 17:27 | NUR ---
IN THIS RN NOTIFIED BY OLGA VILLARREAL OF PTs TEMPERATURE OF 100.1. PRN TYLENOL SUPPOSITORY ADMINISTERED, SEE MAR. IV PUMP ALARMING, RESOLVED. NEW BAG OF FLUIDS STARTED, SEE MAR. ASSESSMENT COMPLETE. LUNG SOULDS WHEEZE AND COARSE THROUGHOUT ALL LOBES. DIMINISHED IN RLL AND LLL. BOWLE TONES ACTIVE. ABD DISTENTION NOTED. ABD FIRM ON LEFT SIDE WITH PALPATION. PT SEMI-FOWLERS IN BED. PT DENIES ANY OTHER NEEDS AT THIS TIME. CALL LIGHT IN REACH. BED ALARM ON. SIDE RAILS UP FOR SAFTEY.
[2023-05-22 17:29] VITALS: BP 126/84
--- NOTE | 2023-05-22 18:08 | NUR ---
IN TO ROUND ON PT. PT NOTED TO HAVE BLE HANGING OVER EDGE OF BED. EPHRAIM RN IN TO ASSIST WITH BOOSTING AND REPOSITIONING PT. PT BOOSTED. PT SITTING UP IN HIGH FOWLERS IN BED AND EATING DINNER TRAY. ORAL TEMPERATURE TAKEN AND NOTED TO BE 99.4. PT DENIES ANY OTHER NEEDS AT THIS TIME. CALL LIGHT IN REACH. BED ALARM ON. SIDE RAILS UP FOR SAFTEY.
--- NOTE | 2023-05-22 18:35 | NUR ---
THIS RN NOTIFIED OF URINE CULTURE RESULTS. MD TO PLACE NEW ORDERS.
--- NOTE | 2023-05-22 19:14 | NUR ---
SHIFT REPORT RECEIVED FROM ENDY BROTHERS, PT ASLEEP, RESP EVEN AND REG, HOB ELEVATED APPROX 30 DEGREES, SIDE RAILS UP.
--- NOTE | 2023-05-22 20:15 | NUR ---
RT REPORTS PT WAS JUST GIVEN A NEBULIZER TREATMENT, AND OXYGEN SATS STABLE SO REPORTED TO CONTINUE ON RA.
--- NOTE | 2023-05-22 21:50 | NUR ---
PT ASLEEP, RESP EVEN AND REGULAR, HOB REMAINS ELEVATED, SIDE RAILS UP, BED ALARM ON.
[2023-05-22 22:10] VITALS: BP 124/75
--- NOTE | 2023-05-22 22:10 | NUR ---
PT ASLEEP, AWAKEN FOR VS, ATTENDS DRY AND PURE WICK REMAINS IN PLACE, RT PAIN MED GIVEN FOR PAIN REPORTED IN HER NECK 01/08, ASSESSMENT COMPLETED, PT REPOSITIONED UP IN BED, DYSNEA ON EXERTION WITH AUDIBLE WHEEZING, WARM BLANKETS GIVEN AND ONE TO NECK, PT FALLS ASLEEP AND WHEEZING CALMS, BED ALARM ON, SIDE RAILS UP X 4, HOB ELEVATED APPROX 30 DEGREES. PT TOOK EARILIER MEDICATED WITH APPLESAUCE AND HOB ELEVATED.
--- NOTE | 2023-05-22 22:50 | NUR ---
PT APPEARS TO SLEEP, RESP EVEN AND REGULAR, NO AUDIBLE WHEEZING HEARD AT THIS TIME.
--- NOTE | 2023-05-23 00:20 | NUR ---
PT APPEARS TO SLEEP, RESP EVEN AND REG.
--- NOTE | 2023-05-23 02:50 | NUR ---
PT AWAKE, ASSISTED PT IN CHANGING POSITION AFTER PERICARE AND PURWICK CHANGED, PT DENIES COMPLAINTS AT THIS TIME, ATTEMPTING TO REST.
--- NOTE | 2023-05-23 04:05 | NUR ---
PT ASLEEP, RESP EVEN AND REG, WITHOUT DISTRESS.
--- NOTE | 2023-05-23 06:20 | NUR ---
PT RESTING, ALERT, VS DONE, PT WITH TEMP 99.6 ORALLY, TYLENOL SUPP 325MG OK GIVEN PER ORDER, PT BECOME WITH HONG, SOB, WHEEZING ANTERIORLY, RT CALLED TO REQUEST NEBULIZER TREATMENT, RT TO ROOM AND NEB GIVEN.
[2023-05-23 06:50] VITALS: BP 141/61
--- NOTE | 2023-05-23 07:15 | NUR ---
REPORT RECEIVED FROM NANDO Mccollum RN. PT SITTING UP IN BED. PT RESPONDS WHEN ADDRESSED. PT DENIES ANY NEEDS AT THIS TIME. CALL LIGHT IN REACH. BED ALARM ON. SIDE RAILS UP FOR SAFTEY.
--- NOTE | 2023-05-23 07:26 | NUR ---
RN CALLED TO ROOM, PT SHAKING AND REPORTS SHE IS VERY PAINFUL, 02/08, REQUESTING PAIN MED, MEDICATED WITH MORPHINE 1MG IV, PT RESTING, HOB REMAINS ELEVATED. PT ATTEMPTING TO REST.
[2023-05-23 09:50] VITALS: BP 125/67
--- NOTE | 2023-05-23 10:05 | NUR ---
IN TO ADMINISTER MEDICATIONS, SEE MAR. PT SITTING UP IN BED EATING BREAKFAST. PT TAKES MS FOURNIER WITH APPLE SAUCE WITH NO ISSUES. PO ABX CUT IN HALF AND TAKEN WITH APPLE SAUCE, PT COUGHS UP. WASTED ABX AND NEW ABX PULLED. ABX CRUSHED AND ADMINISTERED WITH APPLE SAUCE. ASSESSMENT COMPLETE. LUNG SOUNDS WHEEZY THROUGHOUT. COARSE THROUGHOUT. DIMINISHED IN RLL AND LLL. RT CALLED FOR NEB TX. BOWEL TONES ACTIVE. PT REPORTS ABD TENDERNESS WITH PALPATION. ABD DISTENTION NOTED. ABD FIRM WITH PALPATION. PT REPORTING PAIN 9/10 IN RIGHT SHOULDER. SCHEDULED MEDICATIONS ADMINISTERED, SEE MAR. BLE BRUISING NOTED. SCAB NOTED TO RIGHT KNEE. VITALS AND I&Os COMPLETE WITH ASSISTANCE FROM OLGA VILLARREAL. PT SITTING UP IN BED EATING. PT DENIES ANY OTHER NEEDS AT THIS TIME. CALL LIGHT IN REACH. BED ALARM ON.
--- NOTE | 2023-05-23 10:42 | NUR ---
IN TO ADMINISTER PRN SUPPOSITORY TYLENOL. PT TOLERATES WELL. PT DENIES ANY OTHER NEEDS AT THIS TIME. CALL LIGHT IN REACH. BED ALARM ON. SIDE RAILS UP FOR SAFTEY.
--- NOTE | 2023-05-23 11:44 | NUR ---
PT RESTING ON RIGHT SIDE. EYES CLOSED, RR EVEN AND UNLABORED. RR OF 20 NOTED. PT ALLOWED TO REST AT THIS TIME. IV FLUIDS INFUSING WNL. NO OTHER NEEDS IDENTIFIED AT THIS TIME. CALL LIGHT IN REACH. BED ALARM ON. SIDE RAILS UP FOR SAFTEY.
--- NOTE | 2023-05-23 12:55 | NUR ---
PT SITTING UP IN BED VISITING WITH SIGNIFICANT OTHER. NO NEEDS REPORTED AT THIS TIME. CALL LIGHT IN REACH. BED ALARM ON. SIDE RAILS UP FOR SAFTEY.
--- NOTE | 2023-05-23 13:16 | NUR ---
IN TO ROUND ON PT. PT SITTING UP IN BED AND RESPONDS WHEN ADDRESSED. NEW BAG OF FLUIDS STARTED, SEE MAR. IV INFUSING WNL. PT REQUESTING NEB TX. RT CALLED. PT DENIES ANY OTHER NEEDS AT THIS TIME. CALL LIGHT IN REACH. BED ALARM ON. SIDE RAILS UP FOR SAFTEY. SIGNIFICANT OTHER IN ROOM ON COUCH.
[2023-05-23 14:02] VITALS: BP 108/73
--- NOTE | 2023-05-23 15:17 | NUR ---
IN TO ADMINISTER MEDICATIONS, SEE MAR. PT TAKES PO MEDICATIONS WITH APPLE SAUCE. PT SITTING UP IN BED AND REPORTING PAIN 9/10 IN NECK AND BACK. SCHEDULED MEDICATIONS ADMINISTERED, SEE JUL. ASSESSMENT COMPLETE. LUNG SOUNDS COARSE AND WHEEZY THROUGHOUT ALL LOBES. PT REPORTS SOB. RT CALLED. BOWEL TONES ACTIVE. PT REPORTS ABD TENDERNESS WITH PALPATION. ABD DISTENTION NOTED. ABD FIRM WITH PALPATION. IV INFUSING WNL. PT DENIES ANY OTHER NEEDS AT THIS TIME. CALL LIGHT IN REACH. BED ALARM ON. SIDE RAILS UP FOR SAFTEY.
--- NOTE | 2023-05-23 16:15 | NUR ---
IN TO CHANGE PURE WICK. PUREWICK CHANGED. PT REPORTING NECK HURTING. HOT PACK PROVIDED. ZEV MCPHERSON IN TO ASSIST WITH BOOSTING PT. PT BOOSTED IN BED. PT SITTING UP IN BED. PT DENIES ANY OTHER NEEDS AT THIS TIME. CALL LIGHT IN REACH. BED ALARM ON. SIDE RAILS UP FOR SAFTEY.
--- NOTE | 2023-05-23 16:38 | NUR ---
THIS RN CALLED DR. MARQUIS REGARTING PTs INCREASED WOB AND WHEEZING. NEW ORDERS RECEIVED, VERIFIED WITH READBACK.
--- NOTE | 2023-05-23 17:45 | NUR ---
THIS RN CALLED DR. MARQUIS TO NOTIFY THAT PTs IMAGING IS BACK. NEW ORDERS RECEIVED. VERIFIED WITH READBACK.
--- NOTE | 2023-05-23 18:00 | NUR ---
IN TO ROUND ON PT. PT REPORTING PAIN 02/08. PRN PAIN MEDICATION ADMINISTERED, SEE MAR. SOBIA CNA IN TO ASSIST WITH VITALS AND I&Os. VITALS AND I&Os COMPLETE. PT BOOSTED UP IN BED. FLUID RATE DECREASED PER MD ORDERS. PT DENIES DINNER TRAY AND STATES "I DO NOT LIKE SALMON." OFFERED CHOCOLATE ENSURE, PT ACCEPTS. CHOCOLATE ENSURE PROVIDED. PT DENIES ANY OTHER NEEDS AT THIS TIME. CALL LIGHT IN REACH. BED ALARM ON. SIDE RAILS UP FOR SAFTEY.
[2023-05-23 18:05] VITALS: BP 126/71
--- NOTE | 2023-05-23 19:05 | NUR ---
BEDSIDE SHIFT REPORT RECEIVED FROM ENDY BROTHERS, PT RESTING IN BED WITH HOB ELEVATED, SIDE RAILS UP X 4, BED LOW POSITION, PT APPEARS COMFORTABLE AT THIS TIME.
--- NOTE | 2023-05-23 19:13 | NUR ---
THIS RN CALLED DR. MARQUIS TO UPDATE MD ON PTs URINE OUTPUT FOR THE SHIFT. NEW ORDERS RECEIVED, VERIFIED WITH READBACK.
--- NOTE | 2023-05-23 19:55 | NUR ---
RT REPORTS TO RN THAT NEBULIZER TREATMENT IS DONE.
--- NOTE | 2023-05-23 20:15 | NUR ---
TC RECEIVED FROM DR KANDIS MD REPORTS HE REVIEWED BNP LAB, ORDERS RECEIVED FROM FOR 40MG LASIX IV NOW, AM LABS ORDERED FOR BNP, CMP AND CBC.
[2023-05-23 20:50] VITALS: BP 147/74
--- NOTE | 2023-05-23 20:50 | NUR ---
PT MOANING AND SHAKING OFF AND ON DUE TO PAIN, VS DONE, RT MS CONTIN GIVEN PER ORDER WITH OTHER RT MEDS IN APPLESAUCE, PT RATES PAIN 9/10 IN NECK AND SHOULDERS, WARM BLANKET TO SHOULDERS AND SUPPORT GIVEN, PT MEDICATED WITH LASIX 40MG PER ORDER SLOW IV PUSH, IV SITE PATENT, 1/2NS WITH 20MEQ KCL AT 75ML/HR, INFUSING WELL, PURE WICK IN PLACE AND DRAINING WELL, U/O 350ML PRIOR TO LASIX ADMINISTRATIN.
--- NOTE | 2023-05-23 21:18 | NUR ---
PT MOANING AND STILL APPEARS VERY UNCOMFORTABLE, MEDICATED WITH MORPINE 1MG IV FOR BRECKTHROUGH PAIN OF 02/08.
--- NOTE | 2023-05-23 21:50 | NUR ---
PT APPEARS MORE RELAXED, REPORTS PAIN IS LESSENING AFTER LAST DOSE OF MORPHINE, ARMS ELEVATED ON TWO PILLOWS. HOB REMAINS ELEVATED APPROX 45 DEGREES PER REQUEST.
--- NOTE | 2023-05-23 22:25 | NUR ---
PURE WICK OUT 450ML YOU YELLOW URINE APPROX 1.5 HOURS AFTER LASIX GIVEN, PT RESTING WITH EYES CLOSED AT THIS TIME.
--- NOTE | 2023-05-24 00:20 | NUR ---
PT ASLEEP, RESP EVEN, REG AND QUIET, WITHOUT DISTRESS.
--- NOTE | 2023-05-24 00:45 | NUR ---
PT CONTINUES TO SLEEP, PURE WICK EMPTIED OF 750ML LIGHT YELLOW URINE.
--- NOTE | 2023-05-24 02:00 | NUR ---
PT RESTING QUIETLY, EYES CLOSED, WITHOUT DISTRESS.
--- NOTE | 2023-05-24 02:45 | NUR ---
PT AWAKE, C/O NECK AND SHOULDER PAIN, MEDICATED PER ORDER WITH MORPHINE 1MG IV, PT STATES SHE FEEL WET, PERICARE GIVEN AND NEW PURE WICK PLACED ON PT, PT REPOSITIONED UP IN BED AND TILTED TO RIGHT SIDE, HONG, PT REQUESTING NEBULIZER TREATMENT, WHEN RT ARRIVED, PT RESTING QUIETLY AND FEELS SHE IS OK AT THIS TIME, PLAN TO MONITOR. MISSED VOID IN ATTENDS NOTED.
--- NOTE | 2023-05-24 04:10 | NUR ---
PT MOANING, C/O NECK AND SHOULDER PAIN, PT SHAKING AND RESTLESS APPEARING, MEDICATED WITH BENADRYL 25MG IV AND TYLENOL SUPPOSITORY 325 MG FOR PAIN AND RESTLESSNESS, PT REPOSITIONED IN BED WITH SLIGHT RIGHT TILT, WARM BLANKET WRAPPED AROUND NECK AND SHOULDERS, PT CALMING AND STARTING TO REST MORE QUIETLY.
[2023-05-24 06:25] VITALS: BP 119/70
--- NOTE | 2023-05-24 06:25 | NUR ---
LAB IN FOR AM BLOOD DRAW, PT STATES EARILIER MEDICATIONS REALLY HELPED AND SHE WAS ABLE TO REST, VS DONE, PT REPOSITIONED , PT REQUESTING PAIN MED FOR PAIN 8/10 IN SHOULDERS AND NECK.
[2023-05-24 06:31] LABS: BASOPHILS 0.6 % (0-2); EOSINOPHILS 2.3 % (0-6); HEMATOCRIT 31.7 % (35.0-50.0); HEMOGLOBIN 10.3 g/dL (12.0-18.0); MCH 25.9 (27-36); MCHC 32.4 g/dl (30-36); MONOCYTES 6.9 % (0-12); NEUTROPHILS 62.2 % (39-80); PLATELET COUNT 275 K/uL (140-440); RBC 3.97 M/ul (4.3-5.7); RDW 20.6 (10.5-15.0)
--- NOTE | 2023-05-24 06:34 | NUR ---
PT MEDICATED WITH MORPHINE 1 MG PER ORDER FOR PAIN 01/08, DR MARQUIS TO ROOM AND UPDATED ON USE OF BENADRYL EARILIER, DR MARQUIS STATES OK TO USE BENADRYL FOR RESTLESSNESS PRN. PT STATING TO REST AFTER MEDICATION, PURE WICK OUT 675ML. PLAN TO MONITOR TEMP, TOO EARLY FOR TYLENOL AT THIS TIME.
[2023-05-24 06:58] LABS: ALBUMIN 2.1 g/dL (3.4-5.0); ALBUMIN/GLOBULIN RATIO 0.55 (1.1-2.4); ANION GAP 12.5 (7-21); BILIRUBIN, TOTAL 0.5 ng/dL (0.2-1.0); BUN/CREATININE RATIO 6.42 (6.0-28.6); CALCIUM 7.3 mg/dL (8.5-10.1); CREATININE, SERUM 1.09 mg/dL (0.55-1.02); POTASSIUM 4.5 mmol/L (3.5-5.1); PROTEIN, TOTAL 5.9 g/dL (6.4-8.2)
--- NOTE | 2023-05-24 07:12 | NUR ---
Pt report received from ZEV Lind. Pt is asleep in bed, supine, mouth agape, breathing is even, regular, and non-labored.
[2023-05-24 08:12] VITALS: BP 129/68
--- NOTE | 2023-05-24 08:17 | NUR ---
Patient in bed. AM care completed. Pt turned off of right side and sitting up for meal. Pt has no other requests at this time. call light within reach.
[2023-05-24 09:27] VITALS: BP 107/53
--- NOTE | 2023-05-24 11:32 | NUR ---
Pt is awake, supine in bed, television on. RT in room administering a breathing tx. Pt's s/o at bedside. Call light in reach.
[2023-05-24 13:57] VITALS: BP 123/63
--- NOTE | 2023-05-24 13:58 | NUR ---
PATIENT IN BED, ROTATED OFF OF LEFT SIDE. DEPENDS AND PUREWICK CHANGED AND IN PLACE. VITALS AND I/O'S COMPLETED. PT HAS NO OTHER REQUESTS AT THIS TIME. CALL LIGHT WITHIN REACH.
[2023-05-24 18:17] VITALS: BP 130/71
--- NOTE | 2023-05-24 18:37 | NUR ---
Pt has been napping for most of this shift. When she wakes, she immediately c/o pain 9 out of 10 in her neck and shoulders. She has taken PO MS Contin crushed in yogurt or pudding and tolerates that well. She has received 1mg IV MSO4 x3 this shift for breakthrough pain and still c/o pain 9 out of 10. Aspercreme was applied to her neck and shoulders this evening and pt states that Voltaren works better for her at home. She has eaten a good portion of her breakfast and lunch; however, she reports she can't eat her dinner because she hurts too much. Pt has been being repositioned often and is able to assist somewhat. She uses call light appropriately. Pt's "boyfriend" has been in for a short period of time today and was eating part of her lunch.
--- NOTE | 2023-05-24 19:02 | NUR ---
SHIFT REPORT RECEIVED FROM NEVAEH BROTHERS, PT RESTING QUIETLY AT THIS TIME, HOB ELEVATED. SIDE RAILS UP X 2.
--- NOTE | 2023-05-24 20:10 | NUR ---
RT REPORTS NEB TREATMENT JUST GIVEN AND OXYGEN SATS 93%.
[2023-05-24 21:35] VITALS: BP 108/62
--- NOTE | 2023-05-24 21:44 | NUR ---
PT ALERT AND RESPONSIVE, C/O NECK AND SHOULDER PAIN, VS AND ASSESSMENT DONE, PT MEDICATED WITH ROUTINE MS CONTIN, MEDICATED WITH BENADRYL FOR RESLESSNESS, PT STATES PAIN IS 8/10.
--- NOTE | 2023-05-24 22:00 | NUR ---
PT REPOSITIONED IN BED, ATTENDS DRY, TYLENOL SUPP GIVEN FOR TEMP 99.8, PT TILTED TO RIGHT SIDE. IV PATENT IN RIGHT FOREARM, SCDS OUT 150 ML YOU URINE.
--- NOTE | 2023-05-24 22:50 | NUR ---
PT RESTING WITH EYES CLOSED, RESP EVEN AND RE.
--- NOTE | 2023-05-24 23:30 | NUR ---
PT ASLEEP, RESP EVEN AND REG, HOB REMAINS ELEVATED, SIDE RAILS UP X 4, BED LOW POSITION.
--- NOTE | 2023-05-25 01:10 | NUR ---
PT ASLEEP, RESP EVEN AND REG, COVERED WITH BLANKET, IV INFUSING WELL.
--- NOTE | 2023-05-25 02:20 | NUR ---
PT ASLEEP, RESP EVEN AND REG, PURE WIC OUT 200ML YOU URINE.
[2023-05-25 04:05] VITALS: BP 131/60
--- NOTE | 2023-05-25 04:05 | NUR ---
PT AWAKE, REPOSITIONED IN BED, VS DONE AND STABLE, PT STATES SHE SLEPT WELL AND IS DOING OK AND NOT IN PAIN, PERICARE GIVEN AND NEW PURE WICK PLACED. PT BACK TO SLEEP, AFTER TURNED TOWARDS RIGHT SIDE.
--- NOTE | 2023-05-25 06:00 | NUR ---
PT APPEARS TO SLEEP, RESP EVEN AND REG, HOB REMAINS ELEVATED, SIDE RAILS UP X 2.
--- NOTE | 2023-05-25 06:00 | NUR ---
PT ASLEEP, RESP EVEN AND REG, WITHOUT DISTRESS.
--- NOTE | 2023-05-25 07:10 | NUR ---
Pt report received from ZEV Mccollum
[2023-05-25 10:32] VITALS: BP 125/87
--- NOTE | 2023-05-25 11:09 | NUR ---
PATIENT GIVEN 1MG OF IV MORPHINE FOR 9/10 BACK AND NECK PAIN. WARM BLANKET PROVIDED. PATIENT ALSO REQUESTED A NAIL FILE AND THIS WAS GIVEN.
--- NOTE | 2023-05-25 11:28 | NUR ---
PATIENT ASKED FOR A LEMON AND [place] SODA.
[2023-05-25 13:19] VITALS: BP 110/63
--- NOTE | 2023-05-25 18:12 | NUR ---
IN WITH PT FOR PAIN MED ADMINISTRATION, AND NEW IV FLUID, WELL [facility], DIAPER CARE AND REPOSITIONING. PT IS AWAKE AND ALERT, REPORTS PAIN IN HER NECK AND SHOULDERS OF 9 OUT OF 10. PT HAS NO C/O PAIN OR LEAKING AT IV SITE. DIAPER IS DRY, PUREWICK REPLACED, CANNISTER EMPTIED. [facility] AREA CLEANED PRIOR TO NEW PUREWICK APPLICATION. PT PROVIDED WITH WARM BLANKETS, DENIES FURTHER NEEDS AT THIS TIME. CALL LIGHT IN REACH.
[2023-05-25 18:23] VITALS: BP 115/59
--- NOTE | 2023-05-25 19:12 | NUR ---
BEDSIDE REPORT RECEIVED FROM NEVAEH RN, PT RESTING QUIETLY RESP EVEN AND REG.
--- NOTE | 2023-05-25 20:06 | NUR ---
PT REQUESTING PAIN MED FOR NECK AND SHOULDER DISCOMFORT 02/08, MEDICATED PER ORDER WITH 1 MG MORPHINE IV, PT RESTING QUIETLY, WATCHING TV.
[2023-05-25 21:58] VITALS: BP 134/67
--- NOTE | 2023-05-25 22:00 | NUR ---
PT AWAKE AND ALERT, C/O PAIN 9/10 IN SHOULDERS AND NECK, RT MS CONTIN GIVEN, PT ALSO MEDICATED WITH BENADRYL 25 MG IV PER REQUEST FOR RESTLESSNESS, IV PATENT, VS DONE AND STABLE, PURE WICK OUT 300ML YOU URINE. PLAN TO LET PT GET MORE COMFORTABLE PRIOR TO REPOSITIONING. HOB REMAINS ELEVATED APPROX 35 DEGREES.
--- NOTE | 2023-05-25 22:35 | NUR ---
PT STATES SHE IS MORE COMFORTABLE NOW, PAIN CURRENTLY 6 WHICH PT SAYS "IS GOOD FOR ME", ANTIBODIC GIVEN IN APPLESAUCE, PT TAKING SIPS OF WATER, PT REPOSITIONED UP IN BED AFTER CHUX CHANGED, PT DESIRES TO REST, WARM BLANKET GIVEN.
--- NOTE | 2023-05-25 23:00 | NUR ---
PT ASLEEP, RESP EVEN AND REG, WITHOUT DISTRESS.
--- NOTE | 2023-05-26 00:39 | NUR ---
PT APPEARS TO SLEEP, RESP EVEN AND REG.
--- NOTE | 2023-05-26 02:55 | NUR ---
PT AWAKE, ALERT, REPOSITIONED TO RIGHT TILT, PT REQUESTING PAIN MED, MEDICATED WITH MORPHINE 1MG IV, IV PATENT, IVF INFUSING WELL, PT RESTING WITH EYES CLOSED.
--- NOTE | 2023-05-26 04:00 | NUR ---
PT APPEARS TO SLEEP, RESP EVEN AND REG.
[2023-05-26 05:02] VITALS: BP 130/93
--- NOTE | 2023-05-26 05:02 | NUR ---
PT AWAKE, ALERT, VS AND I/O DONE, PT REQUEST LIGHT SPONGE BATH IF POSSIBLE, BED BATH GIVEN, PURE WICK REPLACED AFTER PERICARE DONE, PT REPOSITONED UP IN BED.
--- NOTE | 2023-05-26 06:04 | NUR ---
PT REQUESTING PAIN MED, MEDICATED WITH MORPHINE 1MG IV PER ORDER, PT RESTING WITH HOB ELEVATED.
--- NOTE | 2023-05-26 07:02 | NUR ---
PT ASLEEP, RESP EVEN AND REG.NEW BAG OF IVF HUNG AND INFUSING WELL.
--- NOTE | 2023-05-26 08:26 | NUR ---
NURSE AND I PULLED PATIENT UP IN BED SO SHE COULD EAT HER BREAKFAST. ALSO HELPED WITH PUTTING HER ORANGE JUICE IN A DIFFERENT CUP WITH A STRAW AND LID. ALSO PUT CREAM AND SUGAR IN HER COFFEE.
--- NOTE | 2023-05-26 08:58 | NUR ---
recieved pt report at 0725. pt was asleep with even and unlabored breathing. pt currently awake and alert. confused as to the time and date. pt requested pain medication stating 9/10 pain. ms contin given. pt had breakfast and morning meds. pt assessment complete no abnormal findings since last report. pt discussed discharge possibility today with dr garcia. no other cares needed or requested at this time. call light within reach
[2023-05-26 09:51] VITALS: BP 108/59
--- NOTE | 2023-05-26 10:30 | NUR ---
PATIENT LIKELY TO DC HOME TODAY. CALLED DENISHA, SIGNIFICANT OTHER. NO ANSWER. LEFT MESSAGE WITH CALLBACK NUMBER.
--- NOTE | 2023-05-26 10:42 | NUR ---
MS BROWN. PT RECEIVING NURSING CARE SO NO VISIT. PROVIDED PRAYER.
--- NOTE | 2023-05-26 13:08 | NUR ---
AT 1200 PT REQUESTED PAINMEDS AND STATED PAIN WAS 9/10. TYLENOL WAS GIVEN THROUGH RECTUM. PT TOLERATED WELL.ASKED PT HOW HER PAIN WAS DING AND PT STATED THAT TYLENOL WAS WORKING VERY WELL. WITH A PAIN RATING OF 3/10. NO OTHER CARES NEEDED OR REQUESTED AT THIS TIME. CALL LIGHT WITHIN REACH
--- NOTE | 2023-05-26 13:17 | NUR ---
Attempt to contact Mirza, significant other. No answer.
[2023-05-26 13:42] VITALS: BP 132/92
--- NOTE | 2023-05-26 16:25 | NUR ---
ROXANA ESPINOZA AND I CHANGED PATIENT'S TAPED ATTEND AND ALSO CHANGED PUREWICK AT 1500 AND [facility].
[2023-05-26 17:13] VITALS: BP 124/71
--- NOTE | 2023-05-26 19:34 | NUR ---
REPORT RECEIVED FROM DAY SHIFT RN. PATIENT RESTING IN BED WITH EYES CLOSED. RESPIRATIONS EVEN AND UNLABORED. CALL LIGHT IN REACH.
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
[2023-05-26 21:39] VITALS: BP 136/63
--- NOTE | 2023-05-26 22:12 | NUR ---
PATIENT RESTING IN BED WITH AT BEDSIDE. VS AND I&Os OBTAINED AND RECORDED. SCHEDULED MEDICATIONS ADMINISTERED. PATIENT REPORTS 9/10 PAIN, SCHEDULED PAIN MEDICATION ADMINISTERED. ASSESSMENT COMPLETE. IV FLUSHED AND WNL. IV FLUID INFUSING PER ORDER. NEW PUREWICK IN PLACE AFTER [facility] PROVIDED. WARM BLANKET PROVIDED. PATIENT HAS NO FURTHER NEEDS. CALL LIGHT IN REACH.
--- NOTE | 2023-05-27 00:20 | NUR ---
PATIENT IN BED RESTING ON BACK. RESPIRATIONS EVEN AND UNLABORED. PATIENT REPOSITIONED IN BED WITH PILLOW UNDER RIGHT HIP. NO FURTHER NEEDS. CALL LIGHT IN REACH.
--- NOTE | 2023-05-27 02:03 | NUR ---
CALL LIGHT ANSWERED. PATIENT REPORTS 9/10 PAIN. PRN PAIN MEDICATION ADMINISTERED PER PATIENT REQUEST. PATIENT HAS NO FURTHER NEEDS. CALL LIGHT IN REACH.
--- NOTE | 2023-05-27 04:43 | NUR ---
PATIENT IN BED RESTING ON BACK WATCHING TV. RESPIRATIONS EVEN AND UNLABORED. PATIENT STATES NO CURRENT NEEDS. CALL LIGHT IN REACH.
[2023-05-27 06:05] VITALS: BP 126/77
--- NOTE | 2023-05-27 06:26 | NUR ---
PATIENT RESTING IN BED WATCHING TV. VS AND I&Os OBTAINED AND RECORDED. PATIENT BREIF SOILED. NEW BREIF, JESUS, AND DRAW SHEET IN PLACE. PATIENT REPOSITIONED IN BED. ASSESSMENT COMPLETE. WHEEZES NOTED THROUGHOUT BILAT LUNG SANTOS. PATIENT REPORTS 9/10 PAIN IN NECK AND BACK. PATIENT REPORTS SOB. PRN PAIN MEDICATION ADMINISTERED PER PATIENT REQUEST. 2 WARM BLANKETS PROVIDED. FRESH WATER PROVIDED. PATIENT HAS NO FURTHER NEEDS. CALL LIGHT IN REACH.
--- NOTE | 2023-05-27 07:30 | NUR ---
REPORT RECEIVED FROM ZEV HOUSE AND ZEV LUO. PT LAYING IN BED AND RESPONDS WHEN ADDRESSED. PT DENIES ANY NEEDS AT THIS TIME. CALL LIGHT IN REACH.
--- NOTE | 2023-05-27 07:40 | NUR ---
Attempt to contact Caregiver/significant other and message left to please call back.
--- NOTE | 2023-05-27 08:33 | NUR ---
IN TO ADMINISTER MEDICATIONS, SEE MAR. PT TAKES PO MEDICATION CRUSHED AND IN APPLE SAUCE WITH NO ISSUES. PT REPORTING PAIN 8/10 IN BACK, NECK AND SHOULDERS. ASSESSMENT COMPLETE. LUNG SOUNDS WHEEZY THROUGHOUT ALL LOBES. COARSE IN RLL AND LLL. DIMINISHED IN LLL. BOWEL TONES ACTIVE. ABD TENDER TO RLQ WITH PALPATION. ABD DISTENTION NOTED. ABD FIRM WITH PALPATION. SCAB NOTED TO RIGHT KNEE. BRUISING SCATTERED TO BLE NOTED. PT SITTING UP IN BED EATING BREAKFAST. IV FLUSHES AND IS INFUSING WNL. PT DENIES ANY OTHER NEEDS AT THIS TIME. CALL LIGHT IN REACH.
--- NOTE | 2023-05-27 08:42 | NUR ---
IN TO ADMINISTER MEDICATION, SEE MAR. PT TAKES PO MEDICATION IN APPLE SAUCE WITH NO ISSUES. PT A&O TO SELF, PLACE, MONTH AND DAY. ASKED PT WHAT YEAR IT IS AND PT STATES "[birth year]23" INFORMED PT IT IS 2022. PT SITTING UP IN BED EATING BREAKFAST. PT DENIES ANY OTHER NEEDS AT THIS TIME. CALL LIGHT IN REACH.
--- NOTE | 2023-05-27 09:38 | NUR ---
VOICEMAIL FROM DENISHA, CAREGIVER/SIGNIFICANT OTHER. STATES HE IS GOING TO BE IN FACILITY IN APPROXIMATELY 1 HOUR TO SEE PATIENT.
[2023-05-27 10:03] VITALS: BP 124/77
--- NOTE | 2023-05-27 10:08 | NUR ---
IN IV PUMP ALARMING, RESOLVED. NEW BACK OF FLUIDS STARTED, SEE MAR. PT REPORTING PAIN 02/08. PRN PAIN MEDICATION ADMINISTERED, SEE MAR. OLGA RAMSAY AND OLGA SCHMIDT IN ROOM ASSISTING PT WITH BED BATH. NO NEEDS FROM THIS RN. CALL LIGHT IN REACH.
--- NOTE | 2023-05-27 10:38 | NUR ---
SPOKE WITH CHERELLE AT [facility]. STATES THEY ARE STILL PLANNING ON ADMITTING PATIENT TO THEIR CARE TOMORROW AND WILL CALL WITH A TIME LATER TODAY.
--- NOTE | 2023-05-27 10:43 | NUR ---
ROXANA THE CUSTOMER CARE ASSISTANT AND I GAVE PATIENT A COMPLETE BED BATH. ALSO DID A SHAMPOO CLEAN GOWN. PUT A PILLOW UNDER HER LEGS. AND HAS THREE PILLOWS UNDER HER HEAD. WE ARE GOING TO GO BACK IN AND PUT A PILLOW UNDER ONE OF HER HIPS.
--- NOTE | 2023-05-27 11:22 | NUR ---
SPOKE WITH PATIENT AND CAREGIVER/SIGNIFICANT OTHER, DENISHA. INFORMED THEM PATIENT HAS BEEN MEDICALLY CLEARED AND CAN BE DISCHARGED TODAY. DENISHA STATES HE FEELS SHE NEEDS MORE TIME IN THE HOSPITAL. PATIENT FEELS SHE IS READY TO GO HOME ON HOSPICE. DENISHA STATES [employer] [facility] STILL HAS THEIR EQUIPMENT IN THE HOME AND HE HAS "BEEN TOO BUSY" TO HAVE THEM COME PICK IT UP AND HE HAS NOT CALLED THEM BACK TO COME AND GET IT. STATES HE IS FILING AN APPEAL WITH MEDICARE. HINN 12 LETTER PROVIDED TO PATIENT AND DENISHA. INFORMED OF CHANCE MEDICARE MAY NOT COVER FROM YESTERDAY FORWARD DUE TO HER MEDICAL STABILITY AND HAVING A SAFE DISCHARGE PLAN IN PLACE. VERBALIZE UNDERSTANDING. HINN 12 SIGNED BY PATIENT AND COPY GIVEN TO PATIENT AND SIGNIFICANT OTHER. DR. BHATTI NOTIFIED WELL.
--- NOTE | 2023-05-27 11:36 | NUR ---
IN TO ROUND ON PT. PT SITTING UP IN BED VISITING WITH SIGNIFICANT OTHER. PT REPORTING PAIN 02/08. PRN CREAM APPLIED TO NECK AND SHOULDERS, SEE MAR. PT DENIES ANY OTHER NEEDS AT THIS TIME. CALL LIGHT IN REACH. BED ALARM ON.
--- NOTE | 2023-05-27 12:18 | NUR ---
Recieved message from Kusum at [facility] that they can no longer admit patient tomorrow but will have to wait until next week. Patient and Mirza notified. Both upset with information. Mirza is working on Medicare appeal at this time. States he needs more help at home and he can not take patient home without at minimum hospice support in place. Voices, again, [facility] equipment remains in their home. Attempt to obtain list of equipment from patient and caregiver, asked multiple times what equipment they have and no answer is provided. Also discussed with Mirza and patient, if Medicare denies the appeal, patient will have to be discharged to home and await hospice admission. Mirza states he will keep her in the hospital until Hospice is available to admit her. Discuss medical necessity with patient and Mirza discussing need to have acute illness to be admitted and patient is no longer ill and has a safe discharge plan, therefore she no longer meets criteria. Caregiver, Mirza, repeatedly brings up chronic issues as need for hospital bed even with multiple different explanations provided as to why she no longer meets criteria. States he is going to get a parts sales associate involved if an accounts payable administrator does not come down and talk to them and hospital cover the cost of patient stay if insurance does not pay. Again, discussed need for acute illness to remain in facility under care of physician and staff. Offered resources for caregivers in home, refuses stating they can not afford it. Requests [facility] care information, informed they do not take insurance and it is private pay, states they can not afford that either. Mirza refuses to speak with this nurse any further, stating "I've got to finish this appeal."
--- NOTE | 2023-05-27 12:44 | NUR ---
IN TO ADMINISTER PRN PAIN MEDICATION PT REPORTING PAIN 02/08. PT SITTING UP IN RECLINER. PT DENIES ANY OTHER NEEDS AT THIS TIME. CALL LIGHT IN REACH.
--- NOTE | 2023-05-27 13:06 | NUR ---
List of facilities provided to patient and significant other. Informed patient chart will be sent to multiple facilities to get placement as soon as possible since she is ready for discharge. Mirza states multiple times today he can no longer care for patient. Patient states she is willing to go to any facility that will take her so she is comfortable and her pain is controlled. Mirza does not want her to go to [facility] for personal reasons. Informed Thea Blue is the patient and she is alert and oriented and able to make her own decisions regarding where she will go. Patient states she is willing to go to [facility] if they have room for her and accept her. Dr. Kunz informed Mirza is concerned about patient's left foot and is request x-ray, this nurse informed him that with patient leaving on hospice, unlikely acute issues will be treated, as patient is getting pain medications, but will notify Dr. Kunz. Dr. Kunz notified.
[2023-05-27 13:31] VITALS: BP 131/94
--- NOTE | 2023-05-27 13:51 | NUR ---
Chart faxed to Cyndi Tran and Regencarmen at the [facility].
--- NOTE | 2023-05-27 14:04 | NUR ---
IN TO ROUND ON PT. IN LAYING IN BED SEMI-SEMIFOWLERS. PT RESPONDS WHEN ADDRESSED. PT DENIES ANY OTHER NEEDS AT THIS TIME. CALL LIGHT IN REACH. BED ALARM ON.
--- NOTE | 2023-05-27 15:07 | NUR ---
IN TO ROUND ON PT. PT LAYING IN BED AND RESPONDS WHEN ADDRESSED. PT REPORTING PAIN 01/08. SCHEDULED MEDICATION ADMINISTERED, SEE JUL. ASSESSMENT COMPLETE. LUNG SOUNDS COARSE AND WHEEZE NOTED IN RUL AND TREMAINE. COARS, WHEEZE AND DIMINISHED IN RLL AND LLL. BOWEL TONES ACTIVE. ABD DISTENTION NOTED. ABD TENDER WITH PALPATION. HEART TONES IRREGULAR. PT DENIES ANY OTHER NEEDS AT THIS TIME. CALL LIGHT IN REACH. BED ALARM ON.
--- NOTE | 2023-05-27 16:10 | NUR ---
Recieved call from at [facility] that they can accept patient anytime tomorrow. Patient informed. Dr. Kunz notified. POLST completed with Dr. Kunz and patient, faxed.
--- NOTE | 2023-05-27 16:15 | NUR ---
Attempt to contact Mirza per patient request. No answer. Message left.
--- NOTE | 2023-05-27 16:59 | NUR ---
IN TO ROUND ON PT. PT REQUESTING PRN PAIN MEDICATION. PT REPORTING PAIN 02/08. PRN PAIN MEDICATION ADMINISTERED, SEE MAR. PT DENIES ANY OTHER NEEDS AT THIS TIME. CALL LIGHT IN REACH. SIGNIFICANT OTHER IN ROOM.
[2023-05-27 17:41] VITALS: BP 126/65
--- NOTE | 2023-05-27 17:54 | NUR ---
IN TO ROUND ON PT. DR. BHATTI IN ROOM. PT SITTING UP IN BED WATCHING TV. PT RESPONDS WHEN ADDRESSED. PT DENIES ANY NEEDS AT THIS TIME. CALL LIGHT IN REACH. BED ALARM ON.
--- NOTE | 2023-05-27 18:34 | NUR ---
IN TO ROUND ON PT. PT SITTING UP IN BED AND RESPONDS WHEN ADDRESSED. PT REPORTING PAIN 02/08. PRN PAIN MEDICATION ADMINISTERED, SEE MAR. KO CHANGED. PT DENIES ANY OTHER NEEDS AT THIS TIME. CALL LIGHT IN REACH. BED ALARM ON. SIDE RAILS UP FOR SAFTEY.
--- NOTE | 2023-05-27 19:33 | NUR ---
REPORT RECEIVED FROM DAY SHIFT RN. PATIENT RESTING IN BED WITH EYES CLOSED. RESPIRATIONS EVEN AND UNLABORED. CALL LIGHT IN REACH.
[2023-05-27 21:09] VITALS: BP 134/67
--- NOTE | 2023-05-27 21:49 | NUR ---
PATIENT RESTING IN BED. SCHEDULED MEDICATIONS ADMINSTERED, SEE JUL. VS AND I&Os OBTAINED AND RECORDED. ASSESSMENT COMPLETE. PATIENT REPORTS 9/10 PAIN AT THIS TIME. SCHEDULED PAIN MEDICATION GIVEN. PATIENT REPOSITIONED IN BED WITH PILLOW PLACED UNDER LEFT HIP. HEELS FLOATED OFF THE BED WITH PILLOW. PATIENT HAS NO FURTHER NEEDS. CALL LIGHT IN REACH. IV FLUSHED AND WNL.
--- NOTE | 2023-05-27 22:15 | NUR ---
PATIENT IN BED RESTING ON BACK WITH EYES CLOSED. RESPIRATIONS EVEN AND UNLABORED. CALL LIGHT IN REACH.
--- NOTE | 2023-05-27 23:19 | NUR ---
SCHEDULED IV FLUIDS INFUSING PER ORDER. NO FURTHER NEEDS. CALL LIGHT IN REACH.
--- NOTE | 2023-05-28 00:20 | NUR ---
PATIENT RESTING IN BED WATCHING TV. PATIENT REPOSTIONED IN BED. BILAT HIPS FLOATED. PATIENT HAS NO FURTHER NEEDS. CALL LIGHT IN REACH.
--- NOTE | 2023-05-28 02:00 | NUR ---
CALL LIGHT ANSWERED. PATIENT REPORTS 9/10 PAIN IN NECK AND SHOULDERS. PRN PAIN MEDICATION ADMINISTERED PER PATIENT REQUEST. NEW PUREWICK PLACED AFTER PERICARE PROVIDED. PATIENT REPOSITIONED IN BED WITH PILLOW UNDER RIGHT SIDE. PATIENT HAS NO FURTHER NEEDS. CALL LIGHT IN REACH. ASSESSMENT COMPLETE. PATIENT REPORTS NOT FEELING SOB. WHEEZES NOTED THROUGHOUT BILAT.
--- NOTE | 2023-05-28 04:15 | NUR ---
PATIENT RESTING IN BED ON BACK WITH EYES CLOSED. PATIENT AWAKENS EASILY. PATIENT REPOSITIONED IN BED. PATIENT FLOATED ON 2 PILLOWS UNDER HIPS BILAT. 2 WARM BLANKETS PROVIDED. PATIENT HAS NO FURTHER NEEDS. CALL LIGHT IN REACH.
[2023-05-28 05:19] VITALS: BP 140/84
--- NOTE | 2023-05-28 07:12 | NUR ---
REPORT RECEIVED FROM ZEV ROSALES AND ZEV ROSADO. PT SITTING UP IN BED REQUESTING PRN PAIN MEDICATION. PT REPORTING PAIN 01/08. PRN PAIN MEDICATION ADMINISTERED, SEE JUL. IV FLUSHES AND IS INFUSING WNL. PT DENIES ANY OTHER NEEDS AT THIS TIME. CALL LIGHT IN REACH.
--- NOTE | 2023-05-28 08:00 | NUR ---
PT repositioned onto right side. Pillow underneath left hip. Pt states she is comfortable. Call light within reach. No other needs at this time.
--- NOTE | 2023-05-28 08:40 | NUR ---
IN TO ADMINISTER MEDICATIONS, SEE MAR. PT SITTING UP IN BED EATING BREAKFAST. PT REPORTING PAIN 01/08. SCHEDULED MEDICAITON ADMINISTERED ALONG WITH PRN CREAM, SEE MAR. ASSESSMENT COMPLETE. LUNG SOUNDS COARSE AND WHEEZE THROUGHOUT ALL LOBES. BOWEL TONES ACTIVE. ABD DISTENTION NOTED. ABD FIRM WITH PALPATION, NON-TENDER. HEART TONES DISTANT. PEDAL PULSES PALPABLE. IV FLUIDS DC'd PER ORDERS. IV REMOVED WNL, SEE VASCULAR ACCESS. PT DENIES ANY OTHER NEEDS AT THIS TIME. CALL LIGHT IN REACH.
[2023-05-28] MEDS ORDERED: ARTHRICREAM85 GM TOP (08:53)
[2023-05-28] MEDS ORDERED: ARTIFICIAL TEAR15 M3 OU (08:56)
[2023-05-28] MEDS ORDERED: ATROPINE SULFATE5 M1 SL (08:56)
[2023-05-28] MEDS ORDERED: ONDANSETRON ODT4 MG SL (08:57)
[2023-05-28] MEDS ORDERED: MORPHINE SULFAT30 M2 PO (08:57)
[2023-05-28] MEDS ORDERED: LORAZEPAM0.5 MG PO (08:57)
[2023-05-28] MEDS ORDERED: MORPHINE S100 MG/5 M SL (08:58)
--- NOTE | 2023-05-28 09:15 | NUR ---
Wheelchair van scheduled for 1030 this AM to [facility]. Patient updated. Called Mirza, significant other, no answer. Left message. Orders faxed to [facility].
[2023-05-28 09:58] VITALS: BP 136/76
--- NOTE | 2023-05-28 10:32 | NUR ---
WHEELCHAIR VAN HERE TO TAKE PT TO [place]. BELONGINGS RETURNED. DC PACKET PROVIDED. OLGA RICCI WHEELS PT DOWN TO LOBBY.
--- NOTE | 2023-05-28 10:35 | NUR ---
THIS RN CALLED [facility] AND GAVE REPORT TO ZEV FERRO. QUESTIONS ANSWERED.
== END 2023-05-28 10:32 | DRG 392 ==
LOC: ED 09:38 → MS 09:40 → ED 09:40 → MS 11:14
PROVIDERS: Emergency Medicine; ADMIT Internal Medicine; ATTEND Internal Medicine
DX: R11.2 Nausea with vomiting, unspecified (principal); N39.0 Urinary tract infection, site not specified; I48.20 Chronic atrial fibrillation, unspecified; M06.9 Rheumatoid arthritis, unspecified; Z66 Do not resuscitate; Z51.5 Encounter for palliative care; J44.9 Chronic obstructive pulmonary disease, unspecified; R13.10 Dysphagia, unspecified; Z86.711 Personal history of pulmonary embolism; Z87.891 Personal history of nicotine dependence; Z86.73 Personal history of transient ischemic attack (TIA), and cerebral infarction without residual deficits; Z98.1 Arthrodesis status; Z98.890 Other specified postprocedural states; Z90.710 Acquired absence of both cervix and uterus; Z88.1 Allergy status to other antibiotic agents; Z79.890 Hormone replacement therapy; Z79.899 Other long term (current) drug therapy; Z79.891 Long term (current) use of opiate analgesic; Z79.51 Long term (current) use of inhaled steroids
CPT/HCPCS: 36415; 51798; 70450; 71045; 72125; 73610; 74018; 80048; 80053; 81001; 83880; 85025; 85610; 87088; 92610; 93005; 93010; 93306; 94640; 94760; 96372; 96374; 96375; 96376; 97110; 97162; 97165; 97530; 97535; 99285-25; A9270; C9113; G0378; J1200; J1650; J1940; J2270; J2405; J3480